=== PATIENT | male | born 1980 | race Caucasian/White ===

== ENCOUNTER 2020-11-24 23:56 | Emergency (ER) | payer MEDICAID, SELFPAY ==
--- NOTE | 2020-11-25 02:55 | ED_ITS ---
HPI - Weakness General Stated complaint: Weakness Time Seen by Provider: 11/25/20 02:54 Source: patient Mode of arrival: ambulatory Limitations: no limitations Related Data Allergies Allergy/AdvReac Type Severity Reaction Status Date / Time No Known Allergies Allergy Unverified 07/20/20 15:56 [No Known Allergies*] [facility] Past Medical History Attestation statement: The following information was validated with the patient. Medical History (Updated 11/25/20 @ 02:55 by Pao Pereyra DO) Diabetes HTN (hypertension) Renal failure Sleep apnea Social History Social History (Updated 11/25/20 @ 02:56 by Pao Pereyra DO) Smoking Status: Current every day smoker
== END 2020-11-25 03:10 | disposition left against medical advice (07) ==
LOC: HO.ED 11-25 03:00
PROVIDERS: Emergency Provider Emergency Medicine
DX: R53.1 Weakness (principal)

== ENCOUNTER 2020-11-26 10:39 | Emergency (ER) | payer MEDICAID, SELFPAY ==
[2020-11-26 11:03] VITALS: BP 130/87; PULSE 100; RESP 20; TEMP 36.6; O2SAT 99; BMI 28.8
--- NOTE | 2020-11-26 13:04 | ECG_ITS ---
Test Reason : BACK PAIN Blood Pressure : / mmHG Vent. Rate : 079 BPM Atrial Rate : 079 BPM P-R Int : 156 ms QRS Dur : 096 ms QT Int : 360 ms P-R-T Axes : 041 064 057 degrees QTc Int : 412 ms Normal sinus rhythm Normal ECG When compared with ECG of 01-OCT-2018 22:36, No significant change was found Referred By: Pilar Summers Electronically Signed By:Fabio Whitten
--- NOTE | 2020-11-26 13:04 | XR_ITS ---
EXAMINATION: XR CHEST CLINICAL INFORMATION: Weakness. COMPARISON: Chest radiographs done on 02/11/2018. TECHNIQUE: 2 views of the chest were obtained. FINDINGS: No significant abnormality is noted involving the heart, lungs, mediastinum, bony thorax or soft tissues. XR/XR chest 2V IMPRESSION: Unremarkable examination. No significant change since 02/11/2018.
--- NOTE | 2020-11-26 13:09 | ED_ITS ---
HPI - General Adult General Chief complaint: General Medical Stated complaint: dehhydration Time Seen by Provider: 11/26/20 12:43 Source: patient Mode of arrival: ambulatory Limitations: no limitations History of Present Illness HPI narrative: 40 yo male with past medical history of NIDDM, CKD, HTN, ORTEGA here with complaints of mid back pain, weakness, fatigue, decreased urinary outout over the last few days. No cough, fevers, chills, urinary symptoms like burning or frequency, abdominal pain, vomiting, diarrhea, shortness of breath, cough, chest pain. Onset (ago): day(s) Related Data Home Medications Medication Instructions Recorded Confirmed glipizide 5 mg PO DAILY 11/26/20 11/26/20 lisinopril 20 mg PO DAILY 11/26/20 11/26/20 Allergies Allergy/AdvReac Type Severity Reaction Status Date / Time No Known Allergies Allergy Verified 11/26/20 14:08 [No Known Allergies*] Review of Systems Review of Systems: Yes all other systems are reviewed and are negative Constitutional: Constitutional: Reports no additional constitutional complaints, Denies body ache(s), Denies chills, Denies fever(s), Denies headache(s), Reports malaise and Reports weakness Eyes: Eyes: Reports no additional eye complaints and Denies change in vision ENT: Reports system reviewed and no additional complaints, except as documented, Denies dizziness, Denies headache(s), Denies nasal congestion, Denies nasal discharge and Denies neck pain Cardiovascular: Cardiovascular: Reports no additional cardiovascular complaints, Denies chest pain, Denies leg edema and Denies dyspnea Respiratory: Respiratory: Reports no additional respiratory complaints, Denies cough and Denies dyspnea Gastrointestinal: Gastrointestinal: Reports no additional gastrointestinal complaints, Denies abdominal pain, Denies diarrhea, Denies nausea and Denies vomiting Genitourinary: Genitourinary: Reports oliguria, Denies testicular pain, Denies urinary frequency, Denies urinary hesitancy, Denies urinary incontinence and Denies urinary urgency Musculoskeletal: Musculoskeletal: Reports no additional musculoskeletal complaints, Reports back pain, Denies arthralgias, Denies joint swelling, Denies neck pain, Denies numbness and Denies tingling Integumentary/Breasts: Skin/Breast: Reports system reviewed and no additional complaints, except as docu and Denies rash Neurologic: Reports system reviewed and no additional complaints, except as documented, Denies Abnormal speech present, Denies dizziness, Denies headache(s), Denies numbness, Denies tingling and Reports weakness PMFSH Past Medical History Attestation statement: The following information was validated with the patient. Source: old records reviewed and nursing notes reviewed Medical History Diabetes HTN (hypertension) Renal failure Sleep apnea Social History Social History Alcohol intake: never Smoking Status: Current every day smoker Smoked in Last 30 Days: Yes Use of substances other than those prescribed or required for medical reasons: No Advance Directives: No Advance Directives Information Provided: No Physical Exam Vital Signs: Vital Signs: Last Vital Signs Temp 98.3 F 11/26/20 16:11 Pulse 82 11/26/20 16:11 Resp 18 11/26/20 16:11 BP 122/69 11/26/20 16:11 Pulse Ox 99 11/26/20 16:11 Body Mass Index 28.8 Const: General: cooperative, healthy appearing, comfortable and no acute distress Orientation/consciousness: patient oriented x3 Limitations: no limitations HENMT: Head: Yes normal to inspection Ears: hearing grossly normal bilaterally General nose exam: Normal external nose present Face and sinus: Yes normal facial exam Mouth: Normal oral and palatal mucosa present Throat: Yes posterior oropharynx normal Eyes: General: appearance normal, both eyes and all related structures Pupils: Equal, round and reactive pupils present Neck: Neck: Yes normal visual inspection Chest: Chest palpation & inspection: normal inspection of the chest Resp: Effort & Inspection: normal respiratory effort Auscultation: clear to auscultation bilaterally Cardio: Rate: regular rate Rhythm: regular rhythm Peripheral pulses: Peripheral pulses 2+ throughout GI: Inspection: Yes normal to inspection Palpation (GI): Soft to palpation and nontender Auscultation: normal bowel sounds Back/Spine/Pelvis: Other: Mid back pain bilateral Thoracic/Lumbar Spine: thoracic and lumbar spine normal to inspection Skin: General skin exam: no rashes or lesions noted Neuro: General: patient oriented x3, no focal motor deficits and normal sensation to monofilament Cranial nerves: Yes Equal, round and reactive pupils present Cognition (Neuro): normal cognition Speech: No Abnormal speech present Gait exam (Neuro): Normal gait present Motor exam (neuro): 5/5 motor strength present throughout Extrem: General: Yes normal to inspection Course Course Course Narrative: 40-year-old male here with weakness which is generalized, malaise, back pain and decreased urination over the last few days. He tells me he has a history of same and was noted to have a abnormal potassium level and a worsening renal function in the past. He is concerned for the same. Will check labs, EKG, UA. 1430-acute on chronic renal failure. UA pending. Troponin elevated but no c hest pain. Likely secondary to renal failure. EKG pending. Will rehydrate patient. EKG shows no ischemic changes. Repeat troponin unchanged, likely elevated from CKD. No chest pain. Patient feeling better after receiving NSB. Renal function may be secondary to mild dehydration or worsening renal function. Discussed with patient and recommended following Medical Decision Making MDM Narrative Medical decision making narrative: Lessl likely ACS with 2 flats troponin, EKG with no ischemic changes. Less likely renal colic with no unilateral pain, UA negative for blood. Less likely pyelo/uti with negative UA, no unilateral CVAT. Less likely electrolyte abnormality with unremarkable labs. Medical Records Medical records reviewed: Yes I reviewed the patient's medical records. Lab Data Lab results reviewed: Yes I reviewed the patient's lab results. Result diagrams: 11/26/20 13:41 11/26/20 13:41 Labs: Lab Results 11/26/20 11/26/20 11/26/20 Range/Units 13:41 13:41 13:41 WBC 15.4 H (4.8-10.8) X10*3/uL RBC 4.57 L (4.60-5.80) X10*6/uL Hgb 13.3 L (14.0-18.0) g/dl Hct 39.7 L (42-52) % MCV 86.9 (80-98) fL MCH 29.1 (27.0-33.0) pg MCHC 33.5 (31.0-36.0) g/dl RDW 12.2 (11.0-16.0) % Plt Count 267 (160-400) X10*3/uL MPV 11.3 (9.4-12.4) fL Immature Gran % (Auto) 0.5 H (0.0-0.4) % Neut % (Auto) 66.0 (45-73) % Lymph % (Auto) 25.6 (20-40) % [place] % (Auto) 7.1 (2-11) % Eos % (Auto) 0.6 (0-4) % Baso % (Auto) 0.2 (0-2) % Lymph # (Auto) 3.9 (1.2-4.9) X10*3/uL [place] # (Auto) 1.1 (0.1-1.2) X10*3/uL Eos # (Auto) 0.1 (0.0-0.4) X10*3/uL Baso # (Auto) 0.0 (0.0-0.2) X10*3/uL Abs Immat Gran (auto) 0.08 H (0.00-0.03) X10*3/uL Absolute Neuts (auto) 10.2 H (2.0-8.3) X10*3/uL Absolute Nucleated RBC 0.000 (0.0-0.012) X10*3/uL Nucleated RBC % (auto) 0.0 (0.0-0.2) /100WBC Hold Blue Top SEE NOTE Sodium 131 L (135-145) mmol/L Potassium 5.1 (3.3-5.1) mmol/l Chloride 98 (96-108) mmol/L Carbon Dioxide 25 (22-29) mmol/L Anion Gap 13 (12-20) BUN 31 H (9-16) mg/dL Creatinine 2.60 H (0.5-1.4) mg/dL Estim Creat Clear Calc 40.7 Estimated GFR 27 Random Glucose 307 H (60-115) mg/dL Calcium 8.7 (8.4-10.2) mg/dL Magnesium 2.3 (1.6-2.6) mg/dL Total Bilirubin 0.4 (0.0-1.0) mg/dL Direct Bilirubin 0.2 (0.0-0.5) mg/dL AST 30 (5-37) U/L ALT 26 (0-40) U/L Alkaline Phosphatase 104 (39-117) U/L Total Creatine Kinase 80 (38-174) U/L Troponin I High Sens (<3.5-35.0) ng/L Total Protein 6.9 (6.5-8.0) g/dL Albumin 3.8 (3.5-5.0) g/dL Urine Color Urine Appearance Urine pH (5.0-8.0) Ur Specific [place] (1.005-1.025) Urine Protein (NEG-TRACE) MG/DL Urine Glucose (UA) (NEG) MG/DL Urine Ketones (NEG) MG/DL Urine Blood (NEG) Urine Nitrite (NEG) Ur Leukocyte Esterase (NEG) Urine RBC (0) /HPF Urine WBC (0-4) /HPF Ur Squamous Epith Cells /LPF Urine Bacteria /LPF COVID-19 ([facility]) (Negative) COVID-19 Clin Com 11/26/20 11/26/20 11/26/20 Range/Units 13:41 13:41 14:51 WBC (4.8-10.8) X10*3/uL RBC (4.60-5.80) X10*6/uL Hgb (14.0-18.0) g/dl Hct (42-52) % MCV (80-98) fL MCH (27.0-33.0) pg MCHC (31.0-36.0) g/dl RDW (11.0-16.0) % Plt Count (160-400) X10*3/uL MPV (9.4-12.4) fL Immature Gran % (Auto) (0.0-0.4) % Neut % (Auto) (45-73) % Lymph % (Auto) (20-40) % [place] % (Auto) (2-11) % Eos % (Auto) (0-4) % Baso % (Auto) (0-2) % Lymph # (Auto) (1.2-4.9) X10*3/uL [place] # (Auto) (0.1-1.2) X10*3/uL Eos # (Auto) (0.0-0.4) X10*3/uL Baso # (Auto) (0.0-0.2) X10*3/uL Abs Immat Gran (auto) (0.00-0.03) X10*3/uL Absolute Neuts (auto) (2.0-8.3) X10*3/uL Absolute Nucleated RBC (0.0-0.012) X10*3/uL Nucleated RBC % (auto) (0.0-0.2) /100WBC Hold Blue Top Sodium (135-145) mmol/L Potassium (3.3-5.1) mmol/l Chloride (96-108) mmol/L Carbon Dioxide (22-29) mmol/L Anion Gap (12-20) BUN (9-16) mg/dL Creatinine (0.5-1.4) mg/dL Estim Creat Clear Calc Estimated GFR Random Glucose (60-115) mg/dL Calcium (8.4-10.2) mg/dL Magnesium (1.6-2.6) mg/dL Total Bilirubin (0.0-1.0) mg/dL Direct Bilirubin (0.0-0.5) mg/dL AST (5-37) U/L ALT (0-40) U/L Alkaline Phosphatase (39-117) U/L Total Creatine Kinase (38-174) U/L Troponin I High Sens 125.2 H (<3.5-35.0) ng/L Total Protein (6.5-8.0) g/dL Albumin (3.5-5.0) g/dL Urine Color YELLOW Urine Appearance CLEAR Urine pH 6.5 (5.0-8.0) Ur Specific [place] 1.015 (1.005-1.025) Urine Protein 2+ H (NEG-TRACE) MG/DL Urine Glucose (UA) 500 H (NEG) MG/DL Urine Ketones NEG (NEG) MG/DL Urine Blood TRACE (NEG) Urine Nitrite NEG (NEG) Ur Leukocyte Esterase NEG (NEG) Urine RBC 0-2 (0) /HPF Urine WBC 0 (0-4) /HPF Ur Squamous Epith Cells TRACE /LPF Urine Bacteria NONE /LPF COVID-19 ([facility]) Negative (Negative) COVID-19 Clin Com See Note 11/26/20 11/26/20 Range/Units 15:06 16:31 WBC (4.8-10.8) X10*3/uL RBC (4.60-5.80) X10*6/uL Hgb (14.0-18.0) g/dl Hct (42-52) % MCV (80-98) fL MCH (27.0-33.0) pg MCHC (31.0-36.0) g/dl RDW (11.0-16.0) % Plt Count (160-400) X10*3/uL MPV (9.4-12.4) fL Immature Gran % (Auto) (0.0-0.4) % Neut % (Auto) (45-73) % Lymph % (Auto) (20-40) % [place] % (Auto) (2-11) % Eos % (Auto) (0-4) % Baso % (Auto) (0-2) % Lymph # (Auto) (1.2-4.9) X10*3/uL [place] # (Auto) (0.1-1.2) X10*3/uL Eos # (Auto) (0.0-0.4) X10*3/uL Baso # (Auto) (0.0-0.2) X10*3/uL Abs Immat Gran (auto) (0.00-0.03) X10*3/uL Absolute Neuts (auto) (2.0-8.3) X10*3/uL Absolute Nucleated RBC (0.0-0.012) X10*3/uL Nucleated RBC % (auto) (0.0-0.2) /100WBC Hold Blue Top Sodium (135-145) mmol/L Potassium (3.3-5.1) mmol/l Chloride (96-108) mmol/L Carbon Dioxide (22-29) mmol/L Anion Gap (12-20) BUN (9-16) mg/dL Creatinine (0.5-1.4) mg/dL Estim Creat Clear Calc Estimated GFR Random Glucose (60-115) mg/dL Calcium (8.4-10.2) mg/dL Magnesium (1.6-2.6) mg/dL Total Bilirubin (0.0-1.0) mg/dL Direct Bilirubin (0.0-0.5) mg/dL AST (5-37) U/L ALT (0-40) U/L Alkaline Phosphatase (39-117) U/L Total Creatine Kinase (38-174) U/L Troponin I High Sens 114.9 H (<3.5-35.0) ng/L Total Protein (6.5-8.0) g/dL Albumin (3.5-5.0) g/dL Urine Color YELLOW Urine Appearance HAZY Urine pH 6.0 (5.0-8.0) Ur Specific [place] 1.015 (1.005-1.025) Urine Protein 2+ H (NEG-TRACE) MG/DL Urine Glucose (UA) 500 H (NEG) MG/DL Urine Ketones NEG (NEG) MG/DL Urine Blood TRACE (NEG) Urine Nitrite NEG (NEG) Ur Leukocyte Esterase NEG (NEG) Urine RBC 1-4 (0) /HPF Urine WBC 0-2 (0-4) /HPF Ur Squamous Epith Cells TRACE /LPF Urine Bacteria NONE /LPF COVID-19 ([facility]) (Negative) COVID-19 Clin Com Imaging Data Chest x-ray: Attestation: I personally reviewed and interpreted this imaging study as follows: Radiologist's impression: [address] [id number] ReportSigned Patient: Deandre Luong MMR#: [id number]: [id number]:[id number]/Sex: 40 / MADM Date: 11/26/20Loc: HO.EDAttending Dr: Ordering Physician: DANIELA RODGERS NP Date of Service: 11/26/20 Procedure(s): XR chest 2V Accession Number(s): [id number] cc: DANIELA RODGERS NP~ EXAMINATION: XR CHEST CLINICAL INFORMATION: Weakness. COMPARISON: Chest radiographs done on 02/11/2018. TECHNIQUE: 2 views of the chest were obtained. FINDINGS: No significant abnormality is noted involving the heart, lungs, mediastinum, bony thorax or soft tissues. XR/XR chest 2V IMPRESSION: Unremarkable examination. No significant change since 02/11/2018. ECG Data Attestation: I personally reviewed and interpreted this ECG as follows: Interpretation: Normal sinus rhythm with a rate of 79, normal MT, normal QRS, normal QT Discharge Plan Discharge Clinical Impression: Chronic kidney failure Patient Disposition: Home, Self-Care Instructions: Chronic Kidney Disease (ED) Additional Instructions: yOUR KIDNEY FAILURE WAS SLIGHTLY WORSENED TODAY. tHIS COULD BE FROM DEHYDRATION OR FROM WORSENING KIDNEY FUNCTION FOLLOW-UP WITH YOUR INSURANCE FOLLOW UP REPRESENTATIVE Prescriptions: No Action lisinopril 20 mg Tablet 20 mg PO DAILY RF: 0 glipizide 5 mg Tablet 5 mg PO DAILY RF: 0 Referrals: Cristina Stover MD [Primary Care Provider] - 2 days Interventions: ED Discharge Assessment Last Done: 11/26/20 17:46 Discharge Date/Time: 11/26/20 17:46
[2020-11-26 13:48] LABS: MANUAL DIFF FLAG NO
[2020-11-26 13:51] LABS: Basophils Percent Auto 0.2 % (0-2); Eosinophils Absolute Auto 0.1 X10*3/uL (0.0-0.4); Eosinophils Percent Auto 0.6 % (0-4); Hematocrit 39.7 % (42-52); Hemoglobin 13.3 g/dl (14.0-18.0); Imm Gran Abs Auto 0.08 X10*3/uL (0.00-0.03); Imm Gran Pct Auto 0.5 % (0.0-0.4); Lymphocytes Absolute Auto 3.9 X10*3/uL (1.2-4.9); Lymphocytes Percent Auto 25.6 % (20-40); Mean Corpuscular HGB Conc 33.5 g/dl (31.0-36.0); Mean Corpuscular Hemoglobin 29.1 pg (27.0-33.0); Mean Corpuscular Volume 86.9 fL (80-98); Mean Platelet Volume 11.3 fL (9.4-12.4); Monocytes Absolute Auto 1.1 X10*3/uL (0.1-1.2); Monocytes Percent Auto 7.1 % (2-11); Neutrophils Absolute Auto 10.2 X10*3/uL (2.0-8.3); Platelet Count 267 X10*3/uL (160-400); Red Blood Count 4.57 X10*6/uL (4.60-5.80); Red Cell Distribution Width 12.2 % (11.0-16.0); White Blood Count 15.4 X10*3/uL (4.8-10.8)
[2020-11-26 14:05] VITALS: BP 133/47; PULSE 87; TEMP 36.9; O2SAT 100
[2020-11-26 14:05] LABS: COVID-19 Test Negative (Negative)
[2020-11-26 14:11] LABS: Alanine Aminotransferase 26 U/L (0-40); Albumin Level 3.8 g/dL (3.5-5.0); Alkaline Phosphatase 104 U/L (39-117); Anion Gap 13 (12-20); Aspartate Amino Transferase 30 U/L (5-37); Bilirubin Direct 0.2 mg/dL (0.0-0.5); Bilirubin Total 0.4 mg/dL (0.0-1.0); Blood Urea Nitrogen 31 mg/dL (9-16); Calcium 8.7 mg/dL (8.4-10.2); Carbon Dioxide 25 mmol/L (22-29); Chloride 98 mmol/L (96-108); Creatinine Clr Calc Pharmacy 40.7; Estimated Glomerular Filt Rate 27; Glucose Random 307 mg/dL (60-115); Magnesium 2.3 mg/dL (1.6-2.6); Potassium 5.1 mmol/l (3.3-5.1); Sodium 131 mmol/L (135-145); Total Protein 6.9 g/dL (6.5-8.0)
[2020-11-26 14:22] LABS: Troponin-I High Sensitivity 125.2 ng/L (<3.5-35.0)
[2020-11-26] MEDS: 0.9 % Sodium Chloride 1,000 ML 999 ML IV (14:57)
[2020-11-26 15:15] LABS: Glucose Urine UA 500 MG/DL (NEG); Leukocyte Esterase Urine NEG (NEG); Nitrite Urine NEG (NEG); PH 6.5 (5.0-8.0); Specific Gravity - Urine 1.015 (1.005-1.025); Urine Blood TRACE (NEG); Urine Ketones NEG (NEG); Urine Protein 2+ MG/DL (NEG-TRACE)
[2020-11-26 15:17] LABS: Appearance Urine CLEAR; Color Urine YELLOW
[2020-11-26 15:22] LABS: Glucose Urine UA 500 MG/DL (NEG); Leukocyte Esterase Urine NEG (NEG); Nitrite Urine NEG (NEG); Specific Gravity - Urine 1.015 (1.005-1.025); Urine Blood TRACE (NEG); Urine Ketones NEG (NEG); Urine Protein 2+ MG/DL (NEG-TRACE)
[2020-11-26 15:26] LABS: RBC Urine 0-2 /HPF (0); Squamous Epithelial Cell Urine TRACE /LPF; WBC Urine 0 /HPF (0-4)
[2020-11-26 15:30] LABS: Squamous Epithelial Cell Urine TRACE /LPF; WBC Urine 0-2 /HPF (0-4)
[2020-11-26 16:11] VITALS: BP 122/69; PULSE 82; RESP 18; TEMP 36.8; O2SAT 99
[2020-11-26 16:17] LABS: Appearance Urine HAZY; Color Urine YELLOW
[2020-11-26 17:16] LABS: Troponin-I High Sensitivity 114.9 ng/L (<3.5-35.0)
== END 2020-11-26 17:46 | disposition home or self-care (01) ==
PROVIDERS: Nurse Practitioner Family; Emergency Provider Internal Medicine; PCP Family Medicine
DX: E86.0 Dehydration (principal); I12.9 Hypertensive chronic kidney disease with stage 1 through stage 4 chronic kidney disease, or unspecified chronic kidney disease; E11.22 Type 2 diabetes mellitus with diabetic chronic kidney disease; N18.9 Chronic kidney disease, unspecified; G47.33 Obstructive sleep apnea (adult) (pediatric); F17.200 Nicotine dependence, unspecified, uncomplicated; Z79.899 Other long term (current) drug therapy; Z71.6 Tobacco abuse counseling; Z20.822 Contact with and (suspected) exposure to COVID-19
CPT/HCPCS: 36415; 71046; 80048; 80076; 81001; 82550; 83735; 84484; 85025; 87635; 93005; 96360; 99284

== ENCOUNTER 2021-02-28 23:49 | Emergency (ER) | payer MEDICAID, SELFPAY ==
[2021-02-28 23:58] VITALS: BP 128/65; PULSE 89; RESP 18; TEMP 36.6; O2SAT 100; BMI 36.9
[2021-03-01] VITALS: BP 114/59; PULSE 81; RESP 18; TEMP 36.6; O2SAT 100
[2021-03-01 00:05] LABS: Glucose, Whole Blood 326 mg/dL (60-115)
--- NOTE | 2021-03-01 01:01 | ECG_ITS ---
Test Reason : WEAKNESS Blood Pressure : / mmHG Vent. Rate : 078 BPM Atrial Rate : 078 BPM P-R Int : 132 ms QRS Dur : 098 ms QT Int : 354 ms P-R-T Axes : -32 144 144 degrees QTc Int : 403 ms Suspect limb lead reversal, interpretation assumes no reversal Unusual P axis, possible ectopic atrial rhythm Left posterior fascicular block Nonspecific ST and T wave abnormality Abnormal ECG When compared with ECG of 26-NOV-2020 14:27, Please repeat EKG with correct arm lead Referred By: Gilda Manley Electronically Signed By:YUNIER SIMON MD
--- NOTE | 2021-03-01 01:02 | ED.GENADULT ---
HPI - General Adult General Chief complaint: General Medical Stated complaint: Weakness Time Seen by Provider: 03/01/21 00:55 Source: patient Mode of arrival: ambulatory Limitations: no limitations History of Present Illness HPI narrative: Patient comes to emergency room complaining of a panic attack, feeling chest pressure and near syncopal episode. Patient states that at this time, he feels completely normal. Patient states that he is known to have panic attacks. Patient states that he was laying in bed, started feeling anxious, started feeling short of breath, chest pressure, thought he was going to pass out, tried giving himself an albuterol treatment. A family member drove him to the emergency room. On arrival, patient started feeling better, at this time, patient is asymptomatic Related Data Home Medications Medication Instructions Recorded Confirmed glipizide 5 mg PO DAILY 11/26/20 11/26/20 lisinopril 20 mg PO DAILY 11/26/20 11/26/20 Allergies Allergy/AdvReac Type Severity Reaction Status Date / Time No Known Allergies Allergy Verified 11/26/20 14:08 [No Known Allergies*] Review of Systems Review of Systems: Constitutional : No Weight loss, No Fever, No Chills, No Night Sweats, No Fatigue, No Malaise ENT/Mouth : No Hearing loss, No Ear Pain, No Nasal Congestion, No Sinus Pain, No Hoarseness, No sore throat, No Rhinorrhea, No Swallowing Difficulty Eyes: No Eye Pain, No Swelling, No Redness, No Foreign Body, No Discharge, No Vision Changes Cardiovascular : Resolved chest pressure and resolved dyspnea , No Orthopnea, No Edema, resolved Palpitations Respiratory : No Cough, No Sputum, No Wheezing, No Smoke Exposure, No Dyspnea Gastrointestinal : No Nausea, No Vomiting, No Diarrhea, No Constipation, No abdominal Pain, No Hematochezia, No Melena Genitourinary : no irregular bleeding, No Dysuria, No Urinary Frequency, No Hematuria, No Urinary Incontinence, No Urgency, No Flank Pain, No Urinary Flow Changes, No Hesitancy Musculoskeletal : No joint pain, No Myalgias, No Joint Swelling Skin : No Skin Lesions, No rash Neuro : Complaining of worsening pins and needle sensation on both feet for several months, No Paresthesias, No Loss of Consciousness, No Dizziness, No Headache Psych : No Anxiety/Panic, No Depression, No SI/HI/AH/VH, No Social Issues, Heme/Lymph: No Bruising, No Bleeding,No Lymphadenopathy Endocrine : No Polyuria, No Polydipsia, No Temperature Intolerance [facility] Past Medical History Medical History Diabetes HTN (hypertension) Renal failure Sleep apnea Social History Social History Alcohol intake: never Smoking Status: Current every day smoker Advance Directives: No Physical Exam Vital Signs: Vital Signs: Last Vital Signs Temp 98 F 03/01/21 01:33 Pulse 76 03/01/21 01:33 Resp 18 03/01/21 01:33 BP 113/61 03/01/21 01:33 Pulse Ox 100 03/01/21 01:33 Body Mass Index 36.9 Appearance: Alert. Oriented X3. No acute distress. Eyes: Pupils equal, round and reactive to light. ENT: Pharynx normal. Neck: Normal inspection. Neck supple. No lymph nodes noted. No crepitus CVS: Normal heart rate and rhythm. Pulses normal. Normal S1 and S2 Respiratory: No respiratory distress. Breath sounds normal. No Wheezing. No rales Abdomen: Soft and nontender. No rigidity. No distention. good BS x4 Skin: Skin warm and dry. Normal skin color. Normal skin turgor. Extremities: No lower extremity edema. No lower extremity edema. No Lacerations. No Rash Neuro: Oriented X 3. No motor deficit. No sensory deficit. Moving all extermities. No slurred speech. Course Course Course Narrative: I discussed with the patient that the chronic pins and needle sensation in his feet is likely secondary to diabetic neuropathy. Patient needs to have better control of his blood sugar. Patient's blood sugar is now 218, asymptomatic. Patient had a troponin elevated at 146.3. Patient's baseline troponin is approximately 120. Patient has no chest pain. I discussed with the patient that he should stay for repeat troponin at 03:00 hours, however patient states that his only option for a ride is his daughter who needs to go to work now, patient will be leaving against medical advice. Medical Decision Making Lab Data Result diagrams: 03/01/21 01:12 03/01/21 01:12 Labs: Lab Results 02/28/21 03/01/21 03/01/21 Range/Units 23:53 01:12 01:12 WBC 11.4 H (4.8-10.8) X10*3/uL RBC 4.62 (4.60-5.80) X10*6/uL Hgb 13.5 L (14.0-18.0) g/dl Hct 41.3 L (42-52) % MCV 89.4 (80-98) fL MCH 29.2 (27.0-33.0) pg MCHC 32.7 (31.0-36.0) g/dl RDW 11.9 (11.0-16.0) % Plt Count 260 (160-400) X10*3/uL MPV 10.9 (9.4-12.4) fL Immature Gran % (Auto) 0.4 (0.0-0.4) % Neut % (Auto) 60.4 (45-73) % Lymph % (Auto) 31.4 (20-40) % [place] % (Auto) 5.9 (2-11) % Eos % (Auto) 1.6 (0-4) % Baso % (Auto) 0.3 (0-2) % Lymph # (Auto) 3.6 (1.2-4.9) X10*3/uL [place] # (Auto) 0.7 (0.1-1.2) X10*3/uL Eos # (Auto) 0.2 (0.0-0.4) X10*3/uL Baso # (Auto) 0.0 (0.0-0.2) X10*3/uL Abs Immat Gran (auto) 0.04 H (0.00-0.03) X10*3/uL Absolute Neuts (auto) 6.9 (2.0-8.3) X10*3/uL Absolute Nucleated RBC 0.000 (0.0-0.012) X10*3/uL Nucleated RBC % (auto) 0.0 (0.0-0.2) /100WBC Sodium 133 L (135-145) mmol/L Potassium 4.8 (3.3-5.1) mmol/L Chloride 95 L (96-108) mmol/L Carbon Dioxide 32 H (22-29) mmol/L Anion Gap 11 L (12-20) BUN 33 H (9-16) mg/dL Creatinine 2.28 H (0.5-1.4) mg/dL Estim Creat Clear Calc 52.4 Estimated GFR 32 POC Glucose 326 H (60-115) mg/dL Random Glucose 318 H (60-115) mg/dL Calcium 9.6 D (8.4-10.2) mg/dL Troponin I High Sens (<3.5-35.0) ng/L Urine Color Urine Appearance Urine pH (5.0-8.0) Ur Specific [place] (1.005-1.025) Urine Protein (NEG-TRACE) MG/DL Urine Glucose (UA) (NEG) MG/DL Urine Ketones (NEG) MG/DL Urine Blood (NEG) Urine Nitrite (NEG) Ur Leukocyte Esterase (NEG) Urine RBC (0) /HPF Urine WBC (0-4) /HPF Ur Squamous Epith Cells /LPF Urine Bacteria /LPF Urine Mucus /LPF 03/01/21 03/01/21 03/01/21 Range/Units 01:12 01:36 02:40 WBC (4.8-10.8) X10*3/uL RBC (4.60-5.80) X10*6/uL Hgb (14.0-18.0) g/dl Hct (42-52) % MCV (80-98) fL MCH (27.0-33.0) pg MCHC (31.0-36.0) g/dl RDW (11.0-16.0) % Plt Count (160-400) X10*3/uL MPV (9.4-12.4) fL Immature Gran % (Auto) (0.0-0.4) % Neut % (Auto) (45-73) % Lymph % (Auto) (20-40) % [place] % (Auto) (2-11) % Eos % (Auto) (0-4) % Baso % (Auto) (0-2) % Lymph # (Auto) (1.2-4.9) X10*3/uL [place] # (Auto) (0.1-1.2) X10*3/uL Eos # (Auto) (0.0-0.4) X10*3/uL Baso # (Auto) (0.0-0.2) X10*3/uL Abs Immat Gran (auto) (0.00-0.03) X10*3/uL Absolute Neuts (auto) (2.0-8.3) X10*3/uL Absolute Nucleated RBC (0.0-0.012) X10*3/uL Nucleated RBC % (auto) (0.0-0.2) /100WBC Sodium (135-145) mmol/L Potassium (3.3-5.1) mmol/L Chloride (96-108) mmol/L Carbon Dioxide (22-29) mmol/L Anion Gap (12-20) BUN (9-16) mg/dL Creatinine (0.5-1.4) mg/dL Estim Creat Clear Calc Estimated GFR POC Glucose 218 H (60-115) mg/dL Random Glucose (60-115) mg/dL Calcium (8.4-10.2) mg/dL Troponin I High Sens 146.3 H (<3.5-35.0) ng/L Urine Color STRAW Urine Appearance CLEAR Urine pH 7.0 (5.0-8.0) Ur Specific [place] 1.015 (1.005-1.025) Urine Protein 2+ H (NEG-TRACE) MG/DL Urine Glucose (UA) 500 H (NEG) MG/DL Urine Ketones NEG (NEG) MG/DL Urine Blood 1+ H (NEG) Urine Nitrite NEG (NEG) Ur Leukocyte Esterase NEG (NEG) Urine RBC 0-2 (0) /HPF Urine WBC 0 (0-4) /HPF Ur Squamous Epith Cells NONE /LPF Urine Bacteria NONE /LPF Urine Mucus TRACE /LPF Scores Heart Score History: -0- slightly suspicious ECG: -0- normal Age: -0- < or = 45 Risk factory: -1- 1 or 2 risk factors Troponin: -1- >1 - <3x normal limit Score: 2 Risk: 1.7% Discharge Plan Discharge Clinical Impression: Panic attack Hyperglycemia due to type 2 diabetes mellitus Qualifiers: Diabetes mellitus assisted insulin use: unspecified terminal makeup operator insulin use status Qualified Code(s): E11.65 - Type 2 diabetes mellitus with hyperglycemia Patient Disposition: Left Against Medical Advice Instructions: Diabetic Hyperglycemia (ED), Anxiety (ED) Additional Instructions: He left against medical advice, if you have any chest pain, any recurrent symptoms please return to the emergency room. Please follow-up with your primary care physician tomorrow. If you have any worsening or new symptoms, please return to the emergency room or call 911 Prescriptions: No Action lisinopril 20 mg Tablet 20 mg PO DAILY RF: 0 glipizide 5 mg Tablet 5 mg PO DAILY RF: 0
[2021-03-01] MEDS: 0.9 % Sodium Chloride 1,000 ML 999 ML IVCONT (01:13)
[2021-03-01 01:17] LABS: MANUAL DIFF FLAG NO
[2021-03-01 01:18] LABS: Basophils Percent Auto 0.3 % (0-2); Eosinophils Absolute Auto 0.2 X10*3/uL (0.0-0.4); Eosinophils Percent Auto 1.6 % (0-4); Hematocrit 41.3 % (42-52); Hemoglobin 13.5 g/dl (14.0-18.0); Imm Gran Abs Auto 0.04 X10*3/uL (0.00-0.03); Imm Gran Pct Auto 0.4 % (0.0-0.4); Lymphocytes Absolute Auto 3.6 X10*3/uL (1.2-4.9); Lymphocytes Percent Auto 31.4 % (20-40); Mean Corpuscular HGB Conc 32.7 g/dl (31.0-36.0); Mean Corpuscular Hemoglobin 29.2 pg (27.0-33.0); Mean Corpuscular Volume 89.4 fL (80-98); Mean Platelet Volume 10.9 fL (9.4-12.4); Monocytes Absolute Auto 0.7 X10*3/uL (0.1-1.2); Monocytes Percent Auto 5.9 % (2-11); Neutrophils Absolute Auto 6.9 X10*3/uL (2.0-8.3); Neutrophils Percent Auto 60.4 % (45-73); Platelet Count 260 X10*3/uL (160-400); Red Blood Count 4.62 X10*6/uL (4.60-5.80); Red Cell Distribution Width 11.9 % (11.0-16.0); White Blood Count 11.4 X10*3/uL (4.8-10.8)
[2021-03-01] MEDS: Aspirin Enteric Coated 325 MG TABLET.DR PO (01:29)
[2021-03-01] MEDS: Insulin Regular, Human 100 UNIT/ML 3 ML VIAL 10 UNIT IVPUSH (01:30)
[2021-03-01 01:33] VITALS: BP 113/61; PULSE 76; RESP 18; TEMP 36.6; O2SAT 100
[2021-03-01 01:48] LABS: Anion Gap 11 (12-20); Blood Urea Nitrogen 33 mg/dL (9-16); Calcium 9.6 mg/dL (8.4-10.2); Carbon Dioxide 32 mmol/L (22-29); Chloride 95 mmol/L (96-108); Creatinine Clr Calc Pharmacy 52.4; Estimated Glomerular Filt Rate 32; Glucose Random 318 mg/dL (60-115); Potassium 4.8 mmol/L (3.3-5.1); Sodium 133 mmol/L (135-145)
[2021-03-01 02:00] LABS: Troponin-I High Sensitivity 146.3 ng/L (<3.5-35.0)
[2021-03-01 02:09] LABS: Glucose Urine UA 500 MG/DL (NEG); Leukocyte Esterase Urine NEG (NEG); Nitrite Urine NEG (NEG); Specific Gravity - Urine 1.015 (1.005-1.025); Urine Blood 1+ (NEG); Urine Ketones NEG (NEG); Urine Protein 2+ MG/DL (NEG-TRACE)
[2021-03-01 02:15] LABS: Appearance Urine CLEAR; Color Urine STRAW
[2021-03-01 02:22] LABS: Mucus Urine TRACE /LPF; RBC Urine 0-2 /HPF (0); WBC Urine 0 /HPF (0-4)
[2021-03-01] MEDS: LORazepam 1 MG TABLET 2 MG PO (02:38)
[2021-03-01 02:43] LABS: Glucose, Whole Blood 218 mg/dL (60-115)
== END 2021-03-01 03:17 | disposition left against medical advice (07) ==
PROVIDERS: Emergency Provider Emergency Medicine
DX: E11.65 Type 2 diabetes mellitus with hyperglycemia (principal); F41.0 Panic disorder [episodic paroxysmal anxiety]; R53.1 Weakness; I10 Essential (primary) hypertension; F41.9 Anxiety disorder, unspecified; F17.200 Nicotine dependence, unspecified, uncomplicated
CPT/HCPCS: 36415; 80048; 81001; 82947; 84484; 85025; 93005; 96361; 96374; 99284

== ENCOUNTER 2023-04-18 17:33 | Inpatient (IN) | payer MEDICAID, SELFPAY ==
[2023-04-18] VITALS (9 sets, daily range): BP systolic 95–188; BP diastolic 43–103; PULSE 76–102; RESP 14–20; TEMP 36.4–37.8; O2SAT 97–100; BMI 30.1
--- NOTE | ~2023-04-18 | XR_ITS ---
EXAMINATION: XR FOOT, RIGHT CLINICAL INFORMATION: Rule out second toe ostial COMPARISON: None available. TECHNIQUE: AP, lateral, and oblique views of the right foot. FINDINGS: Erosion and destruction of second distal phalanx suggestive of osteomyelitis. Marked soft tissue swelling about the second digit. Speckled foci of gas overlying the second digit, and unclear if the certainty this is internal or external to the soft tissues. Soft tissue swelling along the dorsum of the foot. No acute fracture or dislocation. XR/XR foot RT 2V IMPRESSION: 1. Erosion and destruction of second distal phalanx suggestive of osteomyelitis. 2. Marked soft tissue swelling about the second digit and along the dorsum of the foot. Speckled foci of gas overlying the second digit, and unclear if the certainty this reflects intrinsic soft tissue gas such as in the setting of gas-forming infection or is external the soft tissues. Recommend correlation with physical exam.
--- NOTE | ~2023-04-18 | IR_ITS ---
PROCEDURE: IR INSERTION OF TUNNEL CATHETER CLINICAL INFORMATION: Osteomyelitis. Needs long-term antibiotics. COMPARISON: None available. TECHNIQUE: Following explaining ultrasound and fluoroscopy-guided placement of right PICC catheter, a written consent was obtained. Patient was placed supine on angiography table and preliminary imaging was obtained through the right neck. An optimal site was selected along the right neck and marked. Right jugular venous images were obtained for documentation. The marked site was cleaned and draped in usual sterile manner with 2% chlorhexidine solution. 1% lidocaine was injected at puncture site. A single wall needle was advanced under ultrasound guidance and right jugular vein was punctured. After obtaining venous return, a thin guidewire was advanced and placed in the SVC and needle withdrawn. Over the thin wire a 5 Georgian dilator was placed and the entire unit was anchored to the drape. Approximately 1 gauze length away from the right neck incision along the anterior chest wall 1% lidocaine was administered. A small skin incision performed. A tunneler attached to a Dietrich catheter was then bluntly introduced through the skin needle and subcutaneously tunneled and pulled through the right anterior neck incision. The catheter was then sized. At the neck the 5 Georgian sheath dilator was removed and a longer 0.035 J-wire was introduced and placed in the IVC. The 5 Georgian dilator was removed and 8 Georgian dilator with sheath was introduced over the guidewire. The dilator was removed and over the dilator a precut 5 Georgian Dietrich catheter was advanced and placed in SVC. Several images were obtained. The catheter was flushed with heparinized saline. 3-0 nonabsorbable sutures were placed in the right neck and right anterior chest wall. Sterile dressing applied postprocedure. Patient tolerated procedure extremely well. All elements of maximal sterile barrier technique followed including use of cap, mask, sterile gown, sterile gloves, a sterile full body drape and hand hygiene. Also followed skin preparation with 2% chlorhexidine for cutaneous antisepsis, and sterile ultrasound preparation with sterile gel and probe cover when applicable. FINDINGS: On preliminary ultrasound imaging, the right jugular vein is widely patent. An approximately 25 cm long single lumen Dietrich catheter was placed with its tip in mid SVC. The catheter is ready for use. IR/IR cvc insert central tunnel IMPRESSION: Successful placement of a right internal jugular vein Dietrich catheter with ultrasound guidance. The catheter is ready for use. The tip of the catheter lies in mid SVC and is ready for use. Fluoroscopy time: 1.3 minutes. Sedation time: 28 minutes. Dose area product: 340 cGy/cm.
--- NOTE | ~2023-04-18 | US_ITS ---
EXAMINATION: Noninvasive assessment of the bilateral lower extremities with ARTERIAL DUPLEX and ANKLE BRACHIAL INDICES (ABIs). CLINICAL INFORMATION: Peripheral vascular disease with history of nonhealing ulceration TECHNIQUE: Duplex Doppler techniques with waveform analysis and measurement of velocities in the bilateral common femoral, profunda femoris, superficial femoral, popliteal and tibial arteries were performed. Additionally, ankle pulse volume recordings, ankle pressure measurements and ankle brachial indices were obtained of the lower extremity arterial system bilaterally. The study was performed only at rest. COMPARISON: None FINDINGS: DIRECT DUPLEX DOPPLER FINDINGS: RIGHT LEG: Common femoral artery: 178 cm/s, phasicity: Triphasic Profunda femoris artery: 67.6 cm/s, phasicity: Biphasic Superficial femoral artery (proximal): 152 cm/s, phasicity: Triphasic Superficial femoral artery (mid): 177 cm/s, phasicity: Monophasic Superficial femoral artery (distal): 157 cm/s, phasicity: Monophasic Popliteal artery: 145 cm/s, phasicity: Monophasic Posterior tibial artery: 103 cm/s, phasicity: Monophasic Peroneal artery: 64.4 cm/s, phasicity: Monophasic LEFT LEG: Common femoral artery: 139 cm/s, phasicity: Triphasic Profunda femoris artery: 71.1 cm/s, phasicity: Triphasic Superficial femoral artery (proximal): 122 cm/s, phasicity: Triphasic Superficial femoral artery (mid): 139 cm/s, phasicity: Triphasic Superficial femoral artery (distal): 101 cm/s, phasicity: Triphasic Popliteal artery: 76.8 cm/s, phasicity: Triphasic Posterior tibial artery: 79.2 cm/s, phasicity: Triphasic Peroneal artery: 57.0 cm/s, phasicity: Triphasic ANKLE-BRACHIAL INDEX: Right: 1.18? Left: 1.12 ANKLE PRESSURES: Right: PT 152, DP not evaluated due to overlying bandage Left: PT?145, DP?130 ANKLE PVR WAVEFORMS: Right: Abnormal Left: Abnormal US/US arterial duplex LE BI IMPRESSION: Right leg: Normal ankle brachial index. Patent flow is seen within the evaluated vessels of the right lower extremity without significant stenosis. Abnormal waveforms are seen which could be due to distal microvascular disease Left leg: Normal ankle brachial index. Patent arterial flow with normal waveforms throughout the left lower extremity JUMA Reference: - >1.4 = calcified vessels - 0.9 - 1.4 = normal - no significant arterial disease - 0.7 - 0.89 = mild peripheral arterial disease - 0.51 - 0.69 = moderate peripheral arterial disease - ? 0.50 = severe peripheral arterial disease - < .30 = critical arterial disease
--- NOTE | ~2023-04-18 | XR_ITS ---
EXAMINATION: XR FOOT, LEFT CLINICAL INFORMATION: Rule out osteomyelitis first digit. COMPARISON: No similar priors. TECHNIQUE: AP, lateral, and oblique views of the left foot. FINDINGS: Laceration with associated soft tissue thickening around the distal first toe. The tuft of the first distal phalanx demonstrates subtle erosions and cortical discontinuity, best seen on the lateral view, worrisome for osteomyelitis. No acute fractures or malalignment. No unexpected radiopaque foreign bodies. XR/XR foot LT 2V IMPRESSION: Findings worrisome for osteomyelitis of the first distal phalanx nearby a laceration and soft tissue thickening.
--- NOTE | 2023-04-18 17:42 | ED.GENADULT ---
HPI - General Adult General Chief complaint: Extremity Problem Stated complaint: R foot swelling Time Seen by Provider: 04/18/23 18:51 Source: patient Mode of arrival: ambulatory History of Present Illness HPI narrative: 42-year-old male, diabetic and hypertensive, states he has been out of medications and that his foot just became red with the discoloration of the 2nd toe on the right foot for 2 days. He denies fevers or chills. Related Data Home Medications Medication Instructions Recorded Confirmed lisinopril 20 mg tablet 20 mg PO DAILY 11/26/20 04/18/23 atorvastatin 40 mg tablet 40 mg PO BEDTIME 04/18/23 04/18/23 glipizide 10 mg tablet, extended 10 mg PO DAILY 04/18/23 04/18/23 release 24 hr melatonin 5 mg tablet 5 mg PO BEDTIME PRN insomnia 04/18/23 04/18/23 multivitamin 1 tab PO DAILY 04/18/23 04/18/23 omeprazole 20 mg capsule,delayed 20 mg PO DAILY@0630 04/18/23 04/18/23 release Allergies Allergy/AdvReac Type Severity Reaction Status Date / Time No Known Allergies Allergy Verified 11/26/20 14:08 [No Known Allergies*] Review of Systems Review of Systems: Pertinent positives and negatives as stated in HPI [facility] Past Medical History Source: nursing notes reviewed Medical History Diabetes HTN (hypertension) Renal failure Sleep apnea Social History Social History Alcohol intake: current Alcohol intake frequency: holidays/special occasions only Smoked in Last 30 Days: Yes Use of substances other than those prescribed or required for medical reasons: No Any prior treatment program specific to substance use: No Advance Directives: No Advance Directives Information Provided: No Physical Exam ED Vital Signs: Vital Signs - 24 hr 04/18/23 17:42 04/18/23 19:04 04/18/23 20:31 Temperature 99.3 F 100.1 F 98.3 F Pulse Rate 83 102 H 91 Respiratory Rate 20 16 16 Blood Pressure 188/103 H 120/65 141/66 H Pulse Oximetry 97 98 100 Oxygen Delivery Method Room Air Room Air Room Air 04/18/23 18:00 Temperature 98.6 F Pulse Rate 90 Respiratory Rate 18 Blood Pressure 137/80 Pulse Oximetry 98 Oxygen Delivery Method Room Air BMI result Body Mass Index 30.1 VITAL SIGNS: Reviewed. GENERAL: Chronically ill, in no acute distress. HEAD: Normocephalic/atraumatic EYES: PERRLA, EOMI EARS: Ext canals without abnormality NOSE: Nares patent bilateral OROPHARYNX: no oral lesions noted, posterior pharynx clear NECK: Supple, no adenopathy LUNGS: Normal breath sounds. No adventitious sounds or accessory muscle use. SpO2<98> CARDIOVASCULAR: Regular rate and rhythm without noted murmurs, no JVD or lower extremity edema. ABDOMEN: Soft, non-tender, non-distended with bowel sounds. MUSCULOSKELETAL: No tenderness, deformities, or effusions noted on gross inspection. EXTREMITIES: No cyanosis, clubbing or edema. RIGHT FOOT: Please review pictures below, there is an obvious gangrenous 2nd right toe with corresponding erythema of the entire foot, there is warmth on tactile evaluation with tenderness to palpation; LEFT FOOT: Appears desiccated but obvious skin breakdown primarily involving the right great toe with underlying pressure wound to the pad of the left great toe no obvious erythema or induration SKIN: Inspection of the skin reveals no rashes NEUROLOGIC: Alert and oriented x 4. Strength and sensation to light touch were grossly intact x 4. Course Course Course Narrative: This is a rapid medical exam. Deferred additional HPI, ROS, PE to primary provider, 42 yo male with past medical history of NIDDM, CKD, HTN, ORTEGA here with right lower leg pain x 2 days with swelling and redness. On exam patient with necrotic 2nd toe right foot with subsequent cellulitis. Will need admission Ordered labs, x-ray right foot. Medications Administered Generic Name Dose Route Start Last Admin Trade Name Freq PRN Reason Stop Dose Admin Sodium Chloride 2,000 mls @ 999 mls/hr 04/18/23 20:45 04/18/23 20:49 Ns IV 04/18/23 22:45 999 mls/hr .Q2H1M LYSSA Administration Discontinued Medications Generic Name Dose Route Start Last Admin Trade Name Freq PRN Reason Stop Dose Admin Acetaminophen 975 mg 04/18/23 19:33 04/18/23 19:46 Acetaminophen 325 Mg Tablet PO 04/18/23 19:34 975 mg ONCE ONE Administration Piperacillin Sod/Tazobactam 50 mls @ 100 mls/hr 04/18/23 18:40 04/18/23 19:00 Sod 3.375 gm/ Sodium Chloride IV 04/18/23 19:09 100 mls/hr ONCE ONE Administration Vancomycin HCl 2,000 mg in 500 mls @ 250 mls/hr 04/18/23 18:40 04/18/23 19:00 Vancomycin/Ns IV 04/18/23 20:39 250 mls/hr ONCE ONE Administration Sodium Chloride 1,000 mls @ 999 mls/hr 04/18/23 19:45 04/18/23 19:41 Ns IV 04/18/23 20:45 999 mls/hr .Q1H1M LYSSA Administration Ibuprofen 400 mg 04/18/23 19:33 04/18/23 19:46 Ibuprofen 400 Mg Tablet PO 04/18/23 19:34 400 mg ONCE ONE Administration Insulin Human Lispro 5 unit 04/18/23 19:50 04/18/23 20:48 Insulin Lispro 100 Unit/Ml 3 Ml Vial SUBCUT 04/18/23 19:51 5 unit ONCE ONE Administration Medical Decision Making Medical Decision Making [facility] Narrative: 193: Sepsis, osteo, lactic, BCx, abx, and fluids. I reviewed all investigations and my interpretation is this patient has wet gangrene to the right foot with hyperglycemia and corresponding presence of beta hydroxybutyrate with mild acidosis, no anion gap, VBG demonstrates a pH of 7.4, patient received 5 units insulin subcutaneous he has also received a total of 2 L of IV fluids and on correction for sodium is actually 125/128 depending on method but patient does not demonstrate any seizure or altered mental status. I did discuss this case with inpatient hospitalist who accepts admission. Differential Diagnosis Please see the discussion above Consult Healthcare Provider Management of the patient was discussed with: Hospitalist Please see the discussion above Lab Data Please see the discussion above 04/18/23 18:24 04/18/23 18:24 Labs: Lab Results 04/18/23 04/18/23 04/18/23 Range/Units 18:24 18:24 18:24 WBC 35.2 H* (4.8-10.8) X10*3/uL RBC 3.70 L (4.60-5.80) X10*6/uL Hgb 10.1 L (14.0-18.0) g/dl Hct 30.8 L (42.0-52.0) % MCV 83.2 (80.0-98.0) fL MCH 27.3 (27.0-33.0) pg MCHC 32.8 (31.0-36.0) g/dl RDW 12.3 (11.0-16.0) % Plt Count 265 (160-400) X10*3/uL MPV 12.2 (9.4-12.4) fL Immature Gran % (Auto) 2.1 H (0.0-0.4) % Neut % (Auto) 90.1 H (45-73) % Lymph % (Auto) 2.8 L (20-40) % [place] % (Auto) 4.7 (2-11) % Eos % (Auto) 0.1 (0-4) % Baso % (Auto) 0.2 (0-2) % Lymph # (Auto) 1.0 L (1.2-4.9) X10*3/uL [place] # (Auto) 1.7 H (0.1-1.2) X10*3/uL Eos # (Auto) 0.1 (0.0-0.4) X10*3/uL Baso # (Auto) 0.1 (0.0-0.2) X10*3/uL Abs Immat Gran (auto) 0.73 H (0.00-0.03) X10*3/uL Absolute Neuts (auto) 31.7 H (2.0-8.3) x10*3/uL Absolute Nucleated RBC 0.000 (0.0-0.012) X10*3/uL Nucleated RBC % (auto) 0.0 (0.0-0.2) /100WBC Smear Tech's Comments VERIFIED VBG pH (7.32-7.43) VBG pCO2 mmHg VBG pO2 mmHg VBG HCO3 (22-26) mmol/L VBG O2 Saturation % VBG Base Excess mmol/L Sodium 118 L* (135-145) mmol/L Potassium 4.2 (3.3-5.1) mmol/L Chloride 89 L (96-108) mmol/L Carbon Dioxide 17 L (22-29) mmol/L Anion Gap 16 (12-20) BUN 32 H (9-16) mg/dL Creatinine 2.81 H (0.5-1.4) mg/dL Estim Creat Clear Calc 38.8 Estimated GFR 25 Random Glucose 529 H* (60-115) mg/dL Lactic Acid 1.6 (0.5-2.0) mmol/L Calcium 8.8 D (8.4-10.2) mg/dL Phosphorus 2.7 (2.7-4.5) mg/dL Magnesium 2.0 (1.6-2.6) mg/dL Total Bilirubin 0.3 (0.0-1.0) mg/dL Direct Bilirubin 0.2 (0.0-0.5) mg/dL AST 25 (5-37) U/L ALT 11 (0-40) U/L Alkaline Phosphatase 175 H (39-117) U/L Total Protein 7.5 (6.5-8.0) g/dL Albumin 2.3 L (3.5-5.0) g/dL B-Hydroxybutyrate 0.04 H (0.02-0.027) mmol/L 04/18/23 Range/Units 20:44 WBC (4.8-10.8) X10*3/uL RBC (4.60-5.80) X10*6/uL Hgb (14.0-18.0) g/dl Hct (42.0-52.0) % MCV (80.0-98.0) fL MCH (27.0-33.0) pg MCHC (31.0-36.0) g/dl RDW (11.0-16.0) % Plt Count (160-400) X10*3/uL MPV (9.4-12.4) fL Immature Gran % (Auto) (0.0-0.4) % Neut % (Auto) (45-73) % Lymph % (Auto) (20-40) % [place] % (Auto) (2-11) % Eos % (Auto) (0-4) % Baso % (Auto) (0-2) % Lymph # (Auto) (1.2-4.9) X10*3/uL [place] # (Auto) (0.1-1.2) X10*3/uL Eos # (Auto) (0.0-0.4) X10*3/uL Baso # (Auto) (0.0-0.2) X10*3/uL Abs Immat Gran (auto) (0.00-0.03) X10*3/uL Absolute Neuts (auto) (2.0-8.3) x10*3/uL Absolute Nucleated RBC (0.0-0.012) X10*3/uL Nucleated RBC % (auto) (0.0-0.2) /100WBC Smear Tech's Comments VBG pH 7.40 (7.32-7.43) VBG pCO2 45 mmHg VBG pO2 33 mmHg VBG HCO3 29 H (22-26) mmol/L VBG O2 Saturation 55.0 % VBG Base Excess 3.8 mmol/L Sodium (135-145) mmol/L Potassium (3.3-5.1) mmol/L Chloride (96-108) mmol/L Carbon Dioxide (22-29) mmol/L Anion Gap (12-20) BUN (9-16) mg/dL Creatinine (0.5-1.4) mg/dL Estim Creat Clear Calc Estimated GFR Random Glucose (60-115) mg/dL Lactic Acid (0.5-2.0) mmol/L Calcium (8.4-10.2) mg/dL Phosphorus (2.7-4.5) mg/dL Magnesium (1.6-2.6) mg/dL Total Bilirubin (0.0-1.0) mg/dL Direct Bilirubin (0.0-0.5) mg/dL AST (5-37) U/L ALT (0-40) U/L Alkaline Phosphatase (39-117) U/L Total Protein (6.5-8.0) g/dL Albumin (3.5-5.0) g/dL B-Hydroxybutyrate (0.02-0.027) mmol/L Independent Interpretation I performed an independent interpretation of an: EKG Interpretation: Sinus tachycardia, HR-113, no STEMI, HI/QRS/QTC is within normal limits. Radiology Impression Radiologist Impression: My interpretation is in agreement with radiology's impression External Record Review External record reviewed: Prior outpatient labs Chronic Conditions Patient?s care impacted by: Diabetes Discharge Plan Discharge Clinical Impression: Diabetic wet gangrene of the foot, Hyperglycemia, Osteomyelitis, Sepsis, Pseudohyponatremia Patient Disposition: Admitted As Inpatient Prescriptions: No Action lisinopril 20 mg Tablet 20 mg PO DAILY multivitamin Tablet 1 tab PO DAILY atorvastatin 40 mg tablet 40 mg PO BEDTIME glipizide 10 mg tablet extended release 24hr 10 mg PO DAILY omeprazole 20 mg capsule,delayed release(DR/EC) 20 mg PO DAILY@0630 melatonin 5 mg tablet 5 mg PO BEDTIME PRN (Reason: insomnia)
--- NOTE | 2023-04-18 17:45 | ECG_ITS ---
Test Reason : TACHY Blood Pressure : / mmHG Vent. Rate : 113 BPM Atrial Rate : 113 BPM P-R Int : 138 ms QRS Dur : 082 ms QT Int : 320 ms P-R-T Axes : 040 058 051 degrees QTc Int : 438 ms Sinus tachycardia Otherwise normal ECG When compared with ECG of 28-FEB-2021 23:56, Sinus rhythm has replaced Ectopic atrial rhythm Referred By: Pilar Suazo Electronically Signed By:YUNIER SIMON MD
[2023-04-18 18:32] LABS: Basophils Absolute Auto 0.1 X10*3/uL (0.0-0.2); Basophils Percent Auto 0.2 % (0-2); Eosinophils Absolute Auto 0.1 X10*3/uL (0.0-0.4); Eosinophils Percent Auto 0.1 % (0-4); Hematocrit 30.8 % (42.0-52.0); Hemoglobin 10.1 g/dl (14.0-18.0); Imm Gran Abs Auto 0.73 X10*3/uL (0.00-0.03); Imm Gran Pct Auto 2.1 % (0.0-0.4); Lymphocytes Percent Auto 2.8 % (20-40); MANUAL DIFF FLAG SCAN; Mean Corpuscular HGB Conc 32.8 g/dl (31.0-36.0); Mean Corpuscular Hemoglobin 27.3 pg (27.0-33.0); Mean Corpuscular Volume 83.2 fL (80.0-98.0); Mean Platelet Volume 12.2 fL (9.4-12.4); Monocytes Absolute Auto 1.7 X10*3/uL (0.1-1.2); Monocytes Percent Auto 4.7 % (2-11); Neutrophils Absolute Auto 31.7 x10*3/uL (2.0-8.3); Neutrophils Percent Auto 90.1 % (45-73); Platelet Count 265 X10*3/uL (160-400); Red Cell Distribution Width 12.3 % (11.0-16.0); SCAN SMEAR FLAG 1
[2023-04-18 18:39] LABS: White Blood Count 35.2 X10*3/uL (4.8-10.8)
[2023-04-18 18:49] LABS: Lactic Acid 1.6 mmol/L (0.5-2.0)
[2023-04-18 19:00] LABS: SLIDE REVIEW VERIFIED
[2023-04-18] MEDS: Piperacillin Sodium/Tazobactam 3.375 GM in 0.9 % Sodium Chloride 50 ML IV (19:00)
[2023-04-18] MEDS: vancomycin/NS 2,000 MG/500 ML PLAST..BAG 250 MG IV (19:00)
[2023-04-18 19:03] LABS: Alanine Aminotransferase 11 U/L (0-40); Albumin Level 2.3 g/dL (3.5-5.0); Alkaline Phosphatase 175 U/L (39-117); Anion Gap 16 (12-20); Aspartate Amino Transferase 25 U/L (5-37); Bilirubin Direct 0.2 mg/dL (0.0-0.5); Bilirubin Total 0.3 mg/dL (0.0-1.0); Blood Urea Nitrogen 32 mg/dL (9-16); Calcium 8.8 mg/dL (8.4-10.2); Carbon Dioxide 17 mmol/L (22-29); Chloride 89 mmol/L (96-108); Creatinine Clr Calc Pharmacy 38.8; Estimated Glomerular Filt Rate 25; Glucose Random 529 mg/dL (60-115); Potassium 4.2 mmol/L (3.3-5.1); Sodium 118 mmol/L (135-145); Total Protein 7.5 g/dL (6.5-8.0)
[2023-04-18] MEDS: 0.9 % Sodium Chloride 1,000 ML 999 ML IV (19:41)
[2023-04-18] MEDS: Ibuprofen 400 MG TABLET PO (19:46)
[2023-04-18] MEDS: Acetaminophen 325 MG TABLET 975 MG PO (19:46)
--- NOTE | 2023-04-18 19:46 | P.HPHOSP_ITS ---
patient seen examined at bedside. Being evaluated for osteomyelitis of right 2nd phalanges with evidence of osteomyelitis. Patient also has evidence of osteomyelitis of right big toe. Will consult surgical team, broad-spectrum antibiotics, ID also consulted History of Present Illness Date of Service: 04/18/23 Attending physician on admission: Diogo Garcia Chief Complaint: Right lower leg pain Pt is a 42-year-old male with a PMH significant for?HTN, HLD, non insulin-depen dent diabetes type 2, and CKD stage III who presents to the ED with?right foot pain, swelling, and redness, and discoloration of his 2nd toe. Patient states that yesterday he began noticing pain on the bottom of his right foot with walking, and had swelling and redness of right foot and lower leg. The second digit of his right foot also became discolored and the skin fell off. Patient denies any specific pain in this toe. Patient also denies any systemic symptoms: No fever, chills, nausea, vomiting. Denies chest pain/pressure, palpitations. No shortness of breath. No abdominal pain. Patient denies a history of peripheral neuropathy. Pt currently only on glipizide for diabetes type 2 man ageadrian, says he has been taking his medications as prescribed, the patient noted he forgot to take his medication earlier today. Patient also notes that he is not regularly followed by a PCP since he has been having some difficulty scheduling an appointment. The patient has not been measuring his sugars daily or adhering to a strict diabetic diet. In the ED patient had a temperature up to 100.1, was tachycardic up to 102, and hypertensive up to 188/103. Labs were significant for leukocytosis of 35.2, H&H of 10.1/30.8, sodium of 118, chloride of 89, carbon dioxide of 17, BUN of 32, creatinine of 2.81, random glucose of 529, C-reactive protein of 27.75, albumin 2.3. VBG pH 7.4 with VBG bicarb of 29. Lactic acid 1.6, magnesium 2.0. Beta hydroxybutyrate 0.04. X-ray of right foot showed erosion and destruction of 2nd distal phalanx suggestive of osteomyelitis with marked soft tissue swelling of the 2nd digit along the dorsum of the foot. There is also speckled foci of gas overlying the 2nd digit, unclear if intrinsic soft tissue gas or external soft tissue. EKG demonstrated sinus tachycardia of [address] elevations or depressions. Pt was treated with vanco and Zosyn, 3L normal saline, acetaminophen, and ibuprofen, and given 5 units of insulin. Pt will be admitted to the hospital for treatment further evaluation of osteomyelitis of 2nd digit of right foot in the setting of uncontrolled diabetes type 2. Review of Systems Review of Systems: Right foot pain Discoloration of 2nd digit of right foot Redness and swelling of right lower leg Patient denies fever, chills, nausea, vomiting No chest pain/pressure, palpitations Denies shortness of breath [facility] Medical History Diabetes HTN (hypertension) Renal failure Sleep apnea Social History Alcohol intake: never Advance Directives: No Advance Directives Information Provided: No Meds Allergies Allergy/AdvReac Type Severity Reaction Status Date / Time No Known Allergies Allergy Verified 11/26/20 14:08 [No Known Allergies*] Active Medications: Current Medications Vancomycin HCl (Vancomycin/Ns) 2,000 mg in 500 mls @ 250 mls/hr IV ONCE ONE Stop: 04/18/23 20:39 Last Admin: 04/18/23 19:00 Dose: 250 mls/hr Sodium Chloride (Ns) 1,000 mls @ 999 mls/hr IV .Q1H1M LYSSA Stop: 04/18/23 20:45 Last Admin: 04/18/23 19:41 Dose: 999 mls/hr Pharmacy Consult (Consult Rx Perform Med Rec) 1 each MISCELLANE ONCE PRN PRN Reason: Consult order Home Medications Medication Instructions Recorded Confirmed Last Taken Type lisinopril 20 mg tablet 20 mg PO DAILY 11/26/20 04/18/23 04/17/23 History atorvastatin 40 mg tablet 40 mg PO BEDTIME 04/18/23 04/18/23 04/17/23 History glipizide 10 mg tablet, extended 10 mg PO DAILY 04/18/23 04/18/23 04/17/23 History release 24 hr melatonin 5 mg tablet 5 mg PO BEDTIME PRN insomnia 04/18/23 04/18/23 04/17/23 History multivitamin 1 tab PO DAILY 0604/18/23 04/17/23 History omeprazole 20 mg capsule,delayed 20 mg PO DAILY@0630 04/18/23 04/18/23 04/17/23 History release Physical Exam Vital Signs and Narrative: Vital Signs: Last Vital Signs Temp 100.1 F 04/18/23 19:04 Pulse 102 H 04/18/23 19:04 Resp 16 04/18/23 19:04 BP 120/65 04/18/23 19:04 Pulse Ox 98 04/18/23 19:04 O2 Del Method Room Air 04/18/23 19:04 BMI result Body Mass Index 30.1 Constitutional: Alert, in no acute distress. Mental Status: Oriented to person, place and time. Eyes: Pupils are equal, round, and reactive to light. Ear, Nose, and Throat: Oropharynx clear, mucous membranes moist. Ears and nose without deformities. Trachea midline. Respiratory: Clear to auscultation bilaterally. No wheezing, rales, or rhonchi. Cardiovascular: S1, S2 regular. No murmurs, rubs, or gallops. Gastrointestinal: Abdomen soft, non-tender, non-distended. Normal bowel sounds. Neurologic: Cranial nerves II-XII are grossly intact bilaterally. No focal neurological deficits. Moves all extremities spontaneously. Musculoskeletal: No cyanosis or clubbing. Extremities: Please see pictures below. Blackened discoloration of second digit of right toe with loss of skin on the pedal aspect and with ulcer on the pedal distal aspect. Warmth and erythema of foot extending up lower right leg. First digit of right foot with dessicated skin, skin loss on pedal aspect, and ulcer at the tip of the toe. No obvious signs of infection. Psychiatric: Normal mood and affect. Results Labs 04/18/23 18:24 04/18/23 18:24 Labs: Laboratory Results - last 24 hr 04/18/23 04/18/23 04/18/23 18:24 18:24 18:24 MCV 83.2 MCH 27.3 MCHC 32.8 RDW 12.3 Plt Count 265 MPV 12.2 Immature Gran % (Auto) 2.1 H Neut % (Auto) 90.1 H Lymph % (Auto) 2.8 L [place] % (Auto) 4.7 Eos % (Auto) 0.1 Baso % (Auto) 0.2 Lymph # (Auto) 1.0 L [place] # (Auto) 1.7 H Eos # (Auto) 0.1 Baso # (Auto) 0.1 Abs Immat Gran (auto) 0.73 H Absolute Neuts (auto) 31.7 H Absolute Nucleated RBC 0.000 Nucleated RBC % (auto) 0.0 Smear Tech's Comments VERIFIED Anion Gap 16 Estim Creat Clear Calc 38.8 Estimated GFR 25 Random Glucose 529 H* Lactic Acid 1.6 Calcium 8.8 D Total Bilirubin 0.3 Direct Bilirubin 0.2 AST 25 ALT 11 Alkaline Phosphatase 175 H Total Protein 7.5 Albumin 2.3 L Imaging Radiologist's Impressions: Impressions Foot X-Ray 04/18/23 18:37 IMPRESSION: 1. Erosion and destruction of second distal phalanx suggestive of osteomyelitis. 2. Marked soft tissue swelling about the second digit and along the dorsum of the foot. Speckled foci of gas overlying the second digit, and unclear if the certainty this reflects intrinsic soft tissue gas such as in the setting of gas-forming infection or is external the soft tissues. Recommend correlation with physical exam. Assessment and Plan (1) Hyperglycemia: Status: Acute (2) Osteomyelitis: Status: Acute (3) Diabetic wet gangrene of the foot: Status: Acute Plan Pt is a 42-year-old male with a PMH significant for?HTN, HLD, non insulin- dependent diabetes type 2, and CKD stage III who presents to the ED with?right foot pain, swelling, and redness, and discoloration of his 2nd toe. Patient states that yesterday he began noticing pain on the bottom of his right foot with walking, and had swelling and redness of right foot and lower leg. The second digit of his right foot also became discolored and the skin fell off. Pt will be admitted to the hospital for treatment further evaluation of osteomyelitis of 2nd digit of right foot in the setting of uncontrolled diabetes type 2. Osteomyelitis of 2nd digit of right foot X-ray of right foot found erosion and destruction of 2nd distal phalanx suggestive of osteomyelitis Patient with WBC of 35.2 and CRP of 27.75 Likely secondary to diabetic foot ulcer Will get x-ray of left foot to r/o osteomyelitis of 1st digit Patient meets sepsis criteria: WBC, tachycardia IV antibiotics: Vanco and cefepime Patient given IVF in a ED, will be placed on maintenance fluids ID consult General surgery consult Infectious disease consult Follow cultures [id number] diabetes type 2, poorly controlled Patient presents with a random glucose of 529 Patient currently only on glipizide, does not check sugars daily or adhere to diabetic diet Patient not followed closely by PCP Patient given 5 units of insulin in ED Will check A1c Patient to be placed on sliding scale insulin for now Diabetic diet Patient will need to follow-up with PCP outpatient for diabetes medication management Hyponatremia Patient's corrected sodium 128, around baseline Patient given IVF in ED Follow BMP CKD stage III Patient's creatinine 2.81, likely around baseline Patient given IVF in ED Follow BMP HLD Continue statin HTN Hold lisinopril, BP soft Full Code Attending:?Dr. Garcia DVT Prophylaxis: Lovenox Pt will require a hospitalization of at least two nights for treatment and further?evaluation of osteomyelitis of 2nd digit of right foot in the setting of uncontrolled diabetes type 2. Time Spent With Patient Time: Total time managing care of this patient today ____ minutes. Quality Stroke Does the patient have a stroke diagnosis?: No VTE Prior VTE?: No VTE Risk Level:: Medical - moderate - high VTE Device Contraindication: Treatment Not Indicated VTE Drug Contraindication: N/A - Med Ordered
[2023-04-18 20:02] LABS: Beta-Hydroxybutyrate 0.04 mmol/L (0.02-0.027); Phosphorus 2.7 mg/dL (2.7-4.5)
--- NOTE | 2023-04-18 20:35 | PHA.MEDREC ---
Pharmacy Consult ? Medication Reconciliation Pharmacy has completed the medication reconciliation. Spoke to patient with spouse at bedside. Patient states they do not take lantus insulin and that their provider told them to stop taking it a couple years ago. Patient also states that they were prescribed Invokana 100mg daily, but have not started taking it because they were worried of kidney and heart issues that could arise from the medication. Left Invokana off of med rec because patient has never started the medication.
[2023-04-18] MEDS: Insulin Lispro 100 UNIT/ML 3 ML VIAL SUBCUT (20:48)
[2023-04-18] MEDS: 0.9 % Sodium Chloride 2,000 ML 999 ML IV (20:49)
[2023-04-18 20:51] LABS: VBG Base Excess 3.8 mmol/L; VBG HCO3 29 mmol/L (22-26); VBG pCO2 45 mmHg; VBG pO2 33 mmHg
[2023-04-18 20:52] LABS: Venous Blood Gas Refer to POC result
[2023-04-18 21:20] LABS: Appearance Urine Clear; Color Urine Yellow; Glucose Urine UA >=1000 mg/dL (Negative); Leukocyte Esterase Urine Negative (Negative); Nitrite Urine Negative (Negative); Specific Gravity - Urine 1.015 (1.005-1.025); UMIC TRIGGER UACC YES; Urine Blood Small (1+) (Negative); Urine Ketones Negative (Negative); Urine Protein 300 (3+) mg/dL (Neg-Trace)
[2023-04-18 21:32] LABS: Bacteria Urine None Seen (None Seen); Hyaline Casts Urine 0-2 /LPF (0-2); Squamous Epithelial Cell Urine 0-2 /HPF (0-2); WBC Urine 0-5 /HPF (0-5)
[2023-04-18 21:44] LABS: C Reactive Protein 27.75 mg/dL (< or = 0.50)
--- NOTE | 2023-04-18 22:17 | PHA.PROG ---
Admission Date/Time: April 18, 2023 21:53 Indication: OSTEO Weight in k.254 kg Serum Creatinine - Last 168 Hours 04/18/23 18:24 Creatinine 2.81 H Estimated CrCl and GFR - Last 168 Hours 04/18/23 18:24 Estim Creat Clear Calc 38.8 Estimated GFR 25 Vancomycin Loading Dose: 2000 MG Current Vancomycin Dosing Regimen: 500 Vancomycin Monitoring using AUC goal of 400 - 600 range with trough as surrogate marker: 478 Date and Time for next Vancomycin Level to be drawn: 04/19 @ 1800 Pharmacist Comments on Vancomycin Plan: Vancomycin dosing will take advantage of Assembly as a clinical decision support tool that uses Bayesian modeling to calculate individual patient's pharmacokinetic parameters and forecast the patient's drug concentration time course with the target goal AUC 24 range of 400 - 600 mg/L/hr.
[2023-04-18 22:55] LABS: Glucose, Whole Blood 326 mg/dL (60-115)
[2023-04-18] MEDS: Atorvastatin Calcium 40 MG TABLET PO (22:58)
[2023-04-18] MEDS: Heparin Sodium,Porcine 5,000 UNIT/ML VIAL 5000 UNIT SUBCUT (22:58)
--- NOTE | 2023-04-18 23:00 | MHC.CM.PN ---
CM met with admitted patient with bed assignment 467. Pt is disabled. Lives with mother. Has DM supplies at home. Cannot find medications in home for past 2 days. Denies any difficulty paying for medications. Pt drives. Declines HCP. Unvaccinated. PCP Dr. Stover at [facility]. THRIVE assessment negative. Denies ETOH or drug abuse. ID, wound care and General surgery pending. Pt with ganrene of 2nd right toe, ulcerations and osteomyelitis on xray. Discussed with patient and mother need for consults and possiblity of intermediate designer antibiotic therapy, as infection is in the bone. Pt and mother aware of STR and home IV therapy. Pt and mother aware that CM will follow him during his hospital stay and MDR's. CM will keep them informed and discuss post hospital care with him. No referrals placed at this time. CM will follow for discharge planning.
[2023-04-18 23:47] LABS: Glucose, Whole Blood 308 mg/dL (60-115)
[2023-04-19] VITALS (11 sets, daily range): BP systolic 113–146; BP diastolic 57–80; PULSE 80–102; RESP 14–20; TEMP 36.6–37.5; O2SAT 94–99
[2023-04-19 00:04] LABS: Anion Gap 13 (12-20); Blood Urea Nitrogen 34 mg/dL (9-16); Calcium 8.9 mg/dL (8.4-10.2); Carbon Dioxide 20 mmol/L (22-29); Chloride 95 mmol/L (96-108); Estimated Glomerular Filt Rate 24; Glucose Random 318 mg/dL (60-115); Potassium 3.9 mmol/L (3.3-5.1); Sodium 124 mmol/L (135-145)
[2023-04-19] MEDS: cefEPime HCl 2 GM in 0.9 % Sodium Chloride 50 ML IV ×2 (01:20→23:11)
[2023-04-19] MEDS: Heparin Sodium,Porcine 5,000 UNIT/ML VIAL 5000 UNIT SUBCUT ×2 (05:47→21:13)
[2023-04-19] MEDS: Omeprazole 20 MG CAPSULE.DR PO (05:47)
[2023-04-19 06:20] LABS: Hematocrit 30.4 % (42.0-52.0); Mean Corpuscular HGB Conc 32.9 g/dl (31.0-36.0); Mean Corpuscular Hemoglobin 27.7 pg (27.0-33.0); Mean Corpuscular Volume 84.2 fL (80.0-98.0); Mean Platelet Volume 11.8 fL (9.4-12.4); Platelet Count 213 X10*3/uL (160-400); Red Blood Count 3.61 X10*6/uL (4.60-5.80); Red Cell Distribution Width 12.3 % (11.0-16.0)
[2023-04-19 06:29] LABS: White Blood Count 34.4 X10*3/uL (4.8-10.8)
[2023-04-19 06:35] LABS: Anion Gap 8 (12-20); Blood Urea Nitrogen 36 mg/dL (9-16); Calcium 9.1 mg/dL (8.4-10.2); Carbon Dioxide 25 mmol/L (22-29); Chloride 98 mmol/L (96-108); Creatinine Clr Calc Pharmacy 39.7; Estimated Glomerular Filt Rate 25; Glucose Random 313 mg/dL (60-115); Potassium 4.4 mmol/L (3.3-5.1); Sodium 127 mmol/L (135-145)
[2023-04-19 07:41] LABS: Glucose, Whole Blood 242 mg/dL (60-115)
[2023-04-19] MEDS: Multivitamin TABLET 1 TAB PO (08:07)
[2023-04-19] MEDS: vancomycin HCL 500 MG in 0.9 % Sodium Chloride 100 ML 110 MG IV ×2 (08:07→20:13)
[2023-04-19] MEDS: Insulin Lispro 100 UNIT/ML 3 ML VIAL SUBCUT ×4 (08:08→20:58)
[2023-04-19] MEDS: lisinopriL 20 MG TABLET PO (08:08)
[2023-04-19 08:39] LABS: Estimated Average Glucose 260 mg/dL; Hemoglobin A1c % 10.7 %
[2023-04-19 08:51] LABS: Erythrocyte Sedimentation Rate 97 MM/HR (0-15)
[2023-04-19] MEDS: 0.9 % Sodium Chloride Flush 3 ML SYRINGE IVFLUSH ×3 (09:29→23:11)
[2023-04-19] MEDS: Acetaminophen 325 MG TABLET 650 MG PO ×2 (09:29→20:05)
[2023-04-19 11:17] LABS: Glucose, Whole Blood 311 mg/dL (60-115)
--- NOTE | 2023-04-19 11:55 | PM.CNGS ---
History of Present Illness Consult details Consult date: 04/19/23 Requesting physician: Cristina Bermudez Narrative: The pt is a 42 year old diabetic male who has gangrenous second toe. He came in last night with high sugars and his toe black. He says he wore too tight shoes 2 weeks ago and the toe started to change. He denies fevers at home but now there is necrotic black tissue anterior and dorsal aspect of his toe and spreading into the plantar area. He says he has not been on his glucose meds recently. He said this happened once also last year and improved with antibiotics. He does not work. [facility] Past Medical History Medical History Diabetes HTN (hypertension) Renal failure Sleep apnea Social History Social History Household Members: Family Housing: Apartment Do you presently have visiting nurse or other home services: No Alcohol intake: current Alcohol intake frequency: holidays/special occasions only Patient Tobacco Use Status: Former Tobacco user Smoked in Last 30 Days: Yes Use of substances other than those prescribed or required for medical reasons: No Currently Displaying Signs/Symptoms of Drug Intoxication Withdrawal: No Any prior treatment program specific to substance use: No Have you been hit, kicked, punched, or otherwise hurt by someone within the past year? If so, by whom?: No Is there a partner from a previous relationship who is making you feel unsafe now?: No Are you made to feel afraid or neglected: No Advance Directives: No Advance Directives Information Provided: No Do you have thoughts of harming others: None Do you have a plan to hurt others: No Plan Nutrition Risks: No Nutritional Risk service: No Meds Allergies Allergy/AdvReac Type Severity Reaction Status Date / Time No Known Allergies Allergy Verified 11/26/20 14:08 [No Known Allergies*] Active Medications: Current Medications Acetaminophen (Acetaminophen 325 Mg Tablet) 650 mg PO Q6H PRN PRN Reason: Pain, Mild (Pain Scale 1-3) Last Admin: 04/19/23 09:29 Dose: 650 mg Atorvastatin Calcium (Atorvastatin Calcium 40 Mg Tablet) 40 mg PO BEDTIME LYSSA Last Admin: 04/18/23 22:58 Dose: 40 mg Dextrose (Dextrose 50 % 25 Gm/50 Ml Syringe) 25 gm IVPUSH Q15M PRN; Protocol PRN Reason: per Hypoglycemia Standing Ord. Docusate Sodium (Docusate Sodium 100 Mg Capsule) 100 mg PO DAILY PRN PRN Reason: Constipation Glucose (Glucose Gel 15 Gm Gel..Gram.) 15 gm PO Q15M PRN; Protocol PRN Reason: per Hypoglycemia Standing Ord. Heparin Sodium (Porcine) (Heparin Sodium,Porcine 5,000 Unit/Ml Vial) 5,000 unit SUBCUT Q8H [facility] Last Admin: 04/19/23 05:47 Dose: 5,000 unit Cefepime HCl 2 gm/ Sodium (Chloride) 50 mls @ 100 mls/hr IV Q24H [facility] Last Infusion: 04/19/23 02:08 Dose: Infused Vancomycin HCl 500 mg/ Sodium (Chloride) 110 mls @ 110 mls/hr IV Q12H [facility] Last Infusion: 04/19/23 09:33 Dose: Infused Insulin Human Lispro (Insulin Lispro 100 Unit/Ml 3 Ml Vial) 0 unit SUBCUT QIDACHS [facility]; Protocol Last Admin: 04/19/23 08:08 Dose: 4 unit Lisinopril (Lisinopril 20 Mg Tablet) 20 mg PO DAILY [facility]; Protocol Last Admin: 04/19/23 08:08 Dose: 20 mg Melatonin (Melatonin 3 Mg Tablet) 6 mg PO BEDTIME PRN PRN Reason: insomnia Multivitamins/Vitamin C (Multivitamin Tablet) 1 tab PO DAILY [facility] Last Admin: 04/19/23 08:07 Dose: 1 tab Omeprazole (Omeprazole 20 Mg Capsule.Dr) 20 mg PO DAILY@0630 [facility] Last Admin: 04/19/23 05:47 Dose: 20 mg Ondansetron HCl (Ondansetron Hcl 4 Mg/2 Ml Vial) 4 mg IVPUSH Q8H PRN PRN Reason: Nausea and Vomiting Pharmacy Consult (Consult Rx Perform Med Rec) 1 each MISCELLANE ONCE PRN PRN Reason: Consult order Pharmacy Consult (Consult Rx Vancomycin Dosing) 1 each MISCELLANE DAILY PRN PRN Reason: Consult order Sodium Chloride (0.9 % Sodium Chloride Flush 3 Ml Syringe) 3 ml IVFLUSH QSHIFT [facility] Last Admin: 04/19/23 09:29 Dose: 3 ml Home Medications Medication Instructions Recorded Confirmed Last Taken Type lisinopril 20 mg tablet 20 mg PO DAILY 11/26/20 04/18/23 04/17/23 History atorvastatin 40 mg tablet 40 mg PO BEDTIME 04/18/23 04/18/23 04/17/23 History glipizide 10 mg tablet, extended 10 mg PO DAILY 04/18/23 04/18/23 04/17/23 History release 24 hr melatonin 5 mg tablet 5 mg PO BEDTIME PRN insomnia 04/18/23 04/18/23 04/17/23 History multivitamin 1 tab PO DAILY 04/18/23 04/18/23 04/17/23 History omeprazole 20 mg capsule,delayed 20 mg PO DAILY@0630 04/18/23 04/18/23 04/17/23 History release Physical Exam Vital Signs: Vital Signs: Last Vital Signs Temp 99.3 F 04/19/23 07:06 Pulse 102 H 04/19/23 07:06 Resp 20 04/19/23 07:06 BP 130/63 04/19/23 07:06 Pulse Ox 98 04/19/23 07:06 O2 Del Method Room Air 04/19/23 07:06 BMI result Body Mass Index 30.1 Skin: Other: strong palpable pedal pulse DP right foot swelling and erythema - second toe is black with dry gangrene superficial and wet under plantar aspect into the deeper space and adjacent toes is necrotic and leaking fluid Results Labs 04/19/23 05:51 04/19/23 05:51 Labs: Abnormal lab results 04/18/23 04/18/23 04/18/23 Range/Units 18:24 18:24 20:44 WBC 35.2 H* (4.8-10.8) X10*3/uL RBC 3.70 L (4.60-5.80) X10*6/uL Hgb 10.1 L (14.0-18.0) g/dl Hct 30.8 L (42.0-52.0) % Immature Gran % (Auto) 2.1 H (0.0-0.4) % Neut % (Auto) 90.1 H (45-73) % Lymph % (Auto) 2.8 L (20-40) % Lymph # (Auto) 1.0 L (1.2-4.9) X10*3/uL [place] # (Auto) 1.7 H (0.1-1.2) X10*3/uL Abs Immat Gran (auto) 0.73 H (0.00-0.03) X10*3/uL Absolute Neuts (auto) 31.7 H (2.0-8.3) x10*3/uL ESR (0-15) MM/HR VBG HCO3 29 H (22-26) mmol/L Sodium 118 L* (135-145) mmol/L Chloride 89 L (96-108) mmol/L Carbon Dioxide 17 L (22-29) mmol/L Anion Gap (12-20) BUN 32 H (9-16) mg/dL Creatinine 2.81 H (0.5-1.4) mg/dL POC Glucose (60-115) mg/dL Random Glucose 529 H* (60-115) mg/dL Alkaline Phosphatase 175 H (39-117) U/L C-Reactive Protein 27.75 H (< or = 0.50) mg/dL Albumin 2.3 L (3.5-5.0) g/dL Urine Protein (Neg-Trace) mg/dL Urine Glucose (UA) (Negative) mg/dL Urine Blood (Negative) Urine RBC (0-2) /HPF B-Hydroxybutyrate 0.04 H (0.02-0.027) mmol/L 04/18/23 04/18/23 04/18/23 Range/Units 21:11 22:49 23:21 WBC (4.8-10.8) X10*3/uL RBC (4.60-5.80) X10*6/uL Hgb (14.0-18.0) g/dl Hct (42.0-52.0) % Immature Gran % (Auto) (0.0-0.4) % Neut % (Auto) (45-73) % Lymph % (Auto) (20-40) % Lymph # (Auto) (1.2-4.9) X10*3/uL [place] # (Auto) (0.1-1.2) X10*3/uL Abs Immat Gran (auto) (0.00-0.03) X10*3/uL Absolute Neuts (auto) (2.0-8.3) x10*3/uL ESR (0-15) MM/HR VBG HCO3 (22-26) mmol/L Sodium 124 L (135-145) mmol/L Chloride 95 L (96-108) mmol/L Carbon Dioxide 20 L (22-29) mmol/L Anion Gap (12-20) BUN 34 H (9-16) mg/dL Creatinine 2.87 H (0.5-1.4) mg/dL POC Glucose 326 H (60-115) mg/dL Random Glucose 318 H (60-115) mg/dL Alkaline Phosphatase (39-117) U/L C-Reactive Protein (< or = 0.50) mg/dL Albumin (3.5-5.0) g/dL Urine Protein 300 (3+) H (Neg-Trace) mg/dL Urine Glucose (UA) >=1000 H (Negative) mg/dL Urine Blood Small (1+) H (Negative) Urine RBC 3-5 H (0-2) /HPF B-Hydroxybutyrate (0.02-0.027) mmol/L 04/18/23 04/19/23 04/19/23 Range/Units 23:43 05:51 05:51 WBC 34.4 H* (4.8-10.8) X10*3/uL RBC 3.61 L (4.60-5.80) X10*6/uL Hgb 10.0 L (14.0-18.0) g/dl Hct 30.4 L (42.0-52.0) % Immature Gran % (Auto) (0.0-0.4) % Neut % (Auto) (45-73) % Lymph % (Auto) (20-40) % Lymph # (Auto) (1.2-4.9) X10*3/uL [place] # (Auto) (0.1-1.2) X10*3/uL Abs Immat Gran (auto) (0.00-0.03) X10*3/uL Absolute Neuts (auto) (2.0-8.3) x10*3/uL ESR (0-15) MM/HR VBG HCO3 (22-26) mmol/L Sodium 127 L (135-145) mmol/L Chloride (96-108) mmol/L Carbon Dioxide (22-29) mmol/L Anion Gap 8 L (12-20) BUN 36 H (9-16) mg/dL Creatinine 2.75 H (0.5-1.4) mg/dL POC Glucose 308 H (60-115) mg/dL Random Glucose 313 H (60-115) mg/dL Alkaline Phosphatase (39-117) U/L C-Reactive Protein (< or = 0.50) mg/dL Albumin (3.5-5.0) g/dL Urine Protein (Neg-Trace) mg/dL Urine Glucose (UA) (Negative) mg/dL Urine Blood (Negative) Urine RBC (0-2) /HPF B-Hydroxybutyrate (0.02-0.027) mmol/L 04/19/23 04/19/23 04/19/23 Range/Units 05:51 07:37 11:09 WBC (4.8-10.8) X10*3/uL RBC (4.60-5.80) X10*6/uL Hgb (14.0-18.0) g/dl Hct (42.0-52.0) % Immature Gran % (Auto) (0.0-0.4) % Neut % (Auto) (45-73) % Lymph % (Auto) (20-40) % Lymph # (Auto) (1.2-4.9) X10*3/uL [place] # (Auto) (0.1-1.2) X10*3/uL Abs Immat Gran (auto) (0.00-0.03) X10*3/uL Absolute Neuts (auto) (2.0-8.3) x10*3/uL ESR 97 H (0-15) MM/HR VBG HCO3 (22-26) mmol/L Sodium (135-145) mmol/L Chloride (96-108) mmol/L Carbon Dioxide (22-29) mmol/L Anion Gap (12-20) BUN (9-16) mg/dL Creatinine (0.5-1.4) mg/dL POC Glucose 242 H 311 H (60-115) mg/dL Random Glucose (60-115) mg/dL Alkaline Phosphatase (39-117) U/L C-Reactive Protein (< or = 0.50) mg/dL Albumin (3.5-5.0) g/dL Urine Protein (Neg-Trace) mg/dL Urine Glucose (UA) (Negative) mg/dL Urine Blood (Negative) Urine RBC (0-2) /HPF B-Hydroxybutyrate (0.02-0.027) mmol/L Short CBC 04/18/23 04/19/23 Range/Units 18:24 05:51 WBC 35.2 H* 34.4 H* (4.8-10.8) X10*3/uL Hgb 10.1 L 10.0 L (14.0-18.0) g/dl Hct 30.8 L 30.4 L (42.0-52.0) % Plt Count 265 213 (160-400) X10*3/uL BMP 04/18/23 04/18/23 04/19/23 18:24 23:21 05:51 Sodium 118 L* 124 L 127 L Potassium 4.2 3.9 4.4 Chloride 89 L 95 L 98 Carbon Dioxide 17 L 20 L 25 BUN 32 H 34 H 36 H Creatinine 2.81 H 2.87 H 2.75 H Calcium 8.8 D 8.9 9.1 Liver Function 04/18/23 Range/Units 18:24 Total Bilirubin 0.3 (0.0-1.0) mg/dL Direct Bilirubin 0.2 (0.0-0.5) mg/dL AST 25 (5-37) U/L ALT 11 (0-40) U/L Alkaline Phosphatase 175 H (39-117) U/L Albumin 2.3 L (3.5-5.0) g/dL Urine 04/18/23 Range/Units 21:11 Urine Color Yellow Urine Appearance Clear Urine pH 6.0 (5.0-9.0) Ur Specific [place] 1.015 (1.005-1.025) Urine Protein 300 (3+) H (Neg-Trace) mg/dL Urine Glucose (UA) >=1000 H (Negative) mg/dL All other labs normal. 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 Needs to have toe amputated and junction with foot debrided or else will become septic. no chance of saving this now. Good blood flow to the foot and toes so if we do amputation now with possible need for additional debridements I am optimistic he will heal this after infectious source is removed. Time Spent With Patient Time: Total time managing care of this patient today __45__ minutes. Procedures Date of Service Date of Service: 04/19/23
--- NOTE | 2023-04-19 14:48 | P.CONAN_ITS ---
[facility] Active Problems Active Problems: All Active Problems (Updated 04/18/23 @ 21:19 by Rosalee Torres MD) Diabetic wet gangrene of the foot (Acute) Hyperglycemia (Acute) Osteomyelitis (Acute) Sepsis (Acute) Pseudohyponatremia (Acute) Past Medical History Medical History Diabetes HTN (hypertension) Renal failure Sleep apnea Family History Family history of problems with anesthesia: No Surgical History History of Problems with Anesthesia: No Social History Social History Household Members: Family Housing: Apartment Do you presently have visiting nurse or other home services: No Alcohol intake: current Alcohol intake frequency: holidays/special occasions only Patient Tobacco Use Status: Former Tobacco user Smoked in Last 30 Days: Yes Use of substances other than those prescribed or required for medical reasons: No Currently Displaying Signs/Symptoms of Drug Intoxication Withdrawal: No Any prior treatment program specific to substance use: No Have you been hit, kicked, punched, or otherwise hurt by someone within the past year? If so, by whom?: No Is there a partner from a previous relationship who is making you feel unsafe now?: No Are you made to feel afraid or neglected: No Advance Directives: No Advance Directives Information Provided: No Do you have thoughts of harming others: None Do you have a plan to hurt others: No Plan Nutrition Risks: No Nutritional Risk service: No Meds Allergies Allergy/AdvReac Type Severity Reaction Status Date / Time No Known Allergies Allergy Verified 11/26/20 14:08 [No Known Allergies*] Active Medications: Current Medications Acetaminophen (Acetaminophen 325 Mg Tablet) 650 mg PO Q6H PRN PRN Reason: Pain, Mild (Pain Scale 1-3) Last Admin: 04/19/23 09:29 Dose: 650 mg Atorvastatin Calcium (Atorvastatin Calcium 40 Mg Tablet) 40 mg PO BEDTIME LYSSA Last Admin: 04/18/23 22:58 Dose: 40 mg Dextrose (Dextrose 50 % 25 Gm/50 Ml Syringe) 25 gm IVPUSH Q15M PRN; Protocol PRN Reason: per Hypoglycemia Standing Ord. Docusate Sodium (Docusate Sodium 100 Mg Capsule) 100 mg PO DAILY PRN PRN Reason: Constipation Glucose (Glucose Gel 15 Gm Gel..Gram.) 15 gm PO Q15M PRN; Protocol PRN Reason: per Hypoglycemia Standing Ord. Heparin Sodium (Porcine) (Heparin Sodium,Porcine 5,000 Unit/Ml Vial) 5,000 unit SUBCUT Q8H [facility] Last Admin: 04/19/23 14:09 Dose: Not Given Cefepime HCl 2 gm/ Sodium (Chloride) 50 mls @ 100 mls/hr IV Q24H [facility] Last Infusion: 04/19/23 02:08 Dose: Infused Vancomycin HCl 500 mg/ Sodium (Chloride) 110 mls @ 110 mls/hr IV Q12H [facility] Last Infusion: 04/19/23 09:33 Dose: Infused Insulin Human Lispro (Insulin Lispro 100 Unit/Ml 3 Ml Vial) 0 unit SUBCUT QIDACHS [facility]; Protocol Last Admin: 04/19/23 13:24 Dose: 8 unit Lisinopril (Lisinopril 20 Mg Tablet) 20 mg PO DAILY [facility]; Protocol Last Admin: 04/19/23 08:08 Dose: 20 mg Melatonin (Melatonin 3 Mg Tablet) 6 mg PO BEDTIME PRN PRN Reason: insomnia Multivitamins/Vitamin C (Multivitamin Tablet) 1 tab PO DAILY [facility] Last Admin: 04/19/23 08:07 Dose: 1 tab Omeprazole (Omeprazole 20 Mg Capsule.Dr) 20 mg PO DAILY@0630 [facility] Last Admin: 04/19/23 05:47 Dose: 20 mg Ondansetron HCl (Ondansetron Hcl 4 Mg/2 Ml Vial) 4 mg IVPUSH Q8H PRN PRN Reason: Nausea and Vomiting Pharmacy Consult (Consult Rx Perform Med Rec) 1 each MISCELLANE ONCE PRN PRN Reason: Consult order Pharmacy Consult (Consult Rx Vancomycin Dosing) 1 each MISCELLANE DAILY PRN PRN Reason: Consult order Sodium Chloride (0.9 % Sodium Chloride Flush 3 Ml Syringe) 3 ml IVFLUSH QSHIFT [facility] Last Admin: 04/19/23 09:29 Dose: 3 ml Home Medications Medication Instructions Recorded Confirmed Last Taken Type lisinopril 20 mg tablet 20 mg PO DAILY 11/26/20 04/18/23 04/17/23 History atorvastatin 40 mg tablet 40 mg PO BEDTIME 04/18/23 04/18/23 04/17/23 History glipizide 10 mg tablet, extended 10 mg PO DAILY 04/18/23 04/18/23 04/17/23 History release 24 hr melatonin 5 mg tablet 5 mg PO BEDTIME PRN insomnia 04/18/23 04/18/23 04/17/23 History multivitamin 1 tab PO DAILY 04/18/23 04/18/23 04/17/23 History omeprazole 20 mg capsule,delayed 20 mg PO DAILY@0630 04/18/23 04/18/23 04/17/23 History release Exam Exam Date and Time: April 19, 2023 144 Height,Weight and Vital Signs: Height 5 ft 10 in Weight 95.254 kg Last Vital Signs Temp 99.5 F 04/19/23 14:43 Pulse 100 04/19/23 14:43 Resp 16 04/19/23 14:43 BP 113/58 L 04/19/23 14:43 Pulse Ox 94 04/19/23 14:43 O2 Del Method Room Air 04/19/23 14:43 Pertinent Lab Results Pertinent Lab Results: Laboratory Tests 04/18/23 04/18/23 04/18/23 18:24 18:24 18:24 WBC 35.2 H* RBC 3.70 L Hgb 10.1 L Hct 30.8 L MCV 83.2 MCH 27.3 MCHC 32.8 RDW 12.3 Plt Count 265 MPV 12.2 Immature Gran % (Auto) 2.1 H Neut % (Auto) 90.1 H Lymph % (Auto) 2.8 L [place] % (Auto) 4.7 Eos % (Auto) 0.1 Baso % (Auto) 0.2 Lymph # (Auto) 1.0 L [place] # (Auto) 1.7 H Eos # (Auto) 0.1 Baso # (Auto) 0.1 Abs Immat Gran (auto) 0.73 H Absolute Neuts (auto) 31.7 H Absolute Nucleated RBC 0.000 Nucleated RBC % (auto) 0.0 Smear Tech's Comments VERIFIED ESR VBG pH VBG pCO2 VBG pO2 VBG HCO3 VBG O2 Saturation VBG Base Excess Sodium 118 L* Potassium 4.2 Chloride 89 L Carbon Dioxide 17 L Anion Gap 16 BUN 32 H Creatinine 2.81 H Estim Creat Clear Calc 38.8 Estimated GFR 25 POC Glucose Random Glucose 529 H* Estimat Average Glucose Hemoglobin A1c % Lactic Acid 1.6 Calcium 8.8 D Phosphorus 2.7 Magnesium 2.0 Total Bilirubin 0.3 Direct Bilirubin 0.2 AST 25 ALT 11 Alkaline Phosphatase 175 H C-Reactive Protein 27.75 H Total Protein 7.5 Albumin 2.3 L Urine Color Urine Appearance Urine pH Ur Specific [place] Urine Protein Urine Glucose (UA) Urine Ketones Urine Blood Urine Nitrite Ur Leukocyte Esterase Urine RBC Urine WBC Ur Squamous Epith Cells Urine Bacteria Hyaline Casts B-Hydroxybutyrate 0.04 H 04/18/23 04/18/23 04/18/23 18:24 20:44 21:11 WBC RBC Hgb Hct MCV MCH MCHC RDW Plt Count MPV Immature Gran % (Auto) Neut % (Auto) Lymph % (Auto) [place] % (Auto) Eos % (Auto) Baso % (Auto) Lymph # (Auto) [place] # (Auto) Eos # (Auto) Baso # (Auto) Abs Immat Gran (auto) Absolute Neuts (auto) Absolute Nucleated RBC Nucleated RBC % (auto) Smear Tech's Comments ESR VBG pH 7.40 VBG pCO2 45 VBG pO2 33 VBG HCO3 29 H VBG O2 Saturation 55.0 VBG Base Excess 3.8 Sodium Potassium Chloride Carbon Dioxide Anion Gap BUN Creatinine Estim Creat Clear Calc Estimated GFR POC Glucose Random Glucose Estimat Average Glucose 260 Hemoglobin A1c % 10.7 Lactic Acid Calcium Phosphorus Magnesium Total Bilirubin Direct Bilirubin AST ALT Alkaline Phosphatase C-Reactive Protein Total Protein Albumin Urine Color Yellow Urine Appearance Clear Urine pH 6.0 Ur Specific [place] 1.015 Urine Protein 300 (3+) H Urine Glucose (UA) >=1000 H Urine Ketones Negative Urine Blood Small (1+) H Urine Nitrite Negative Ur Leukocyte Esterase Negative Urine RBC 3-5 H Urine WBC 0-5 Ur Squamous Epith Cells 0-2 Urine Bacteria None Seen Hyaline Casts 0-2 B-Hydroxybutyrate 04/18/23 04/18/23 04/18/23 22:49 23:21 23:43 WBC RBC Hgb Hct MCV MCH MCHC RDW Plt Count MPV Immature Gran % (Auto) Neut % (Auto) Lymph % (Auto) [place] % (Auto) Eos % (Auto) Baso % (Auto) Lymph # (Auto) [place] # (Auto) Eos # (Auto) Baso # (Auto) Abs Immat Gran (auto) Absolute Neuts (auto) Absolute Nucleated RBC Nucleated RBC % (auto) Smear Tech's Comments ESR VBG pH VBG pCO2 VBG pO2 VBG HCO3 VBG O2 Saturation VBG Base Excess Sodium 124 L Potassium 3.9 Chloride 95 L Carbon Dioxide 20 L Anion Gap 13 BUN 34 H Creatinine 2.87 H Estim Creat Clear Calc 38.0 Estimated GFR 24 POC Glucose 326 H 308 H Random Glucose 318 H Estimat Average Glucose Hemoglobin A1c % Lactic Acid Calcium 8.9 Phosphorus Magnesium Total Bilirubin Direct Bilirubin AST ALT Alkaline Phosphatase C-Reactive Protein Total Protein Albumin Urine Color Urine Appearance Urine pH Ur Specific [place] Urine Protein Urine Glucose (UA) Urine Ketones Urine Blood Urine Nitrite Ur Leukocyte Esterase Urine RBC Urine WBC Ur Squamous Epith Cells Urine Bacteria Hyaline Casts B-Hydroxybutyrate 04/19/23 04/19/23 04/19/23 05:51 05:51 05:51 WBC 34.4 H* RBC 3.61 L Hgb 10.0 L Hct 30.4 L MCV 84.2 MCH 27.7 MCHC 32.9 RDW 12.3 Plt Count 213 MPV 11.8 Immature Gran % (Auto) Neut % (Auto) Lymph % (Auto) [place] % (Auto) Eos % (Auto) Baso % (Auto) Lymph # (Auto) [place] # (Auto) Eos # (Auto) Baso # (Auto) Abs Immat Gran (auto) Absolute Neuts (auto) Absolute Nucleated RBC 0.000 Nucleated RBC % (auto) 0.0 Smear Tech's Comments ESR 97 H VBG pH VBG pCO2 VBG pO2 VBG HCO3 VBG O2 Saturation VBG Base Excess Sodium 127 L Potassium 4.4 Chloride 98 Carbon Dioxide 25 Anion Gap 8 L BUN 36 H Creatinine 2.75 H Estim Creat Clear Calc 39.7 Estimated GFR 25 POC Glucose Random Glucose 313 H Estimat Average Glucose Hemoglobin A1c % Lactic Acid Calcium 9.1 Phosphorus Magnesium Total Bilirubin Direct Bilirubin AST ALT Alkaline Phosphatase C-Reactive Protein Total Protein Albumin Urine Color Urine Appearance Urine pH Ur Specific [place] Urine Protein Urine Glucose (UA) Urine Ketones Urine Blood Urine Nitrite Ur Leukocyte Esterase Urine RBC Urine WBC Ur Squamous Epith Cells Urine Bacteria Hyaline Casts B-Hydroxybutyrate 04/19/23 04/19/23 07:37 11:09 WBC RBC Hgb Hct MCV MCH MCHC RDW Plt Count MPV Immature Gran % (Auto) Neut % (Auto) Lymph % (Auto) [place] % (Auto) Eos % (Auto) Baso % (Auto) Lymph # (Auto) [place] # (Auto) Eos # (Auto) Baso # (Auto) Abs Immat Gran (auto) Absolute Neuts (auto) Absolute Nucleated RBC Nucleated RBC % (auto) Smear Tech's Comments ESR VBG pH VBG pCO2 VBG pO2 VBG HCO3 VBG O2 Saturation VBG Base Excess Sodium Potassium Chloride Carbon Dioxide Anion Gap BUN Creatinine Estim Creat Clear Calc Estimated GFR POC Glucose 242 H 311 H Random Glucose Estimat Average Glucose Hemoglobin A1c % Lactic Acid Calcium Phosphorus Magnesium Total Bilirubin Direct Bilirubin AST ALT Alkaline Phosphatase C-Reactive Protein Total Protein Albumin Urine Color Urine Appearance Urine pH Ur Specific [place] Urine Protein Urine Glucose (UA) Urine Ketones Urine Blood Urine Nitrite Ur Leukocyte Esterase Urine RBC Urine WBC Ur Squamous Epith Cells Urine Bacteria Hyaline Casts B-Hydroxybutyrate Airway Heart: RRR Lungs: CTA Assessment and Plan Assessment Anesthesia Assessment: Anesthesia Plan Discussed, Smoking Cess. Discussed and Chart Reviewed Final Anesthetic Review Family History of Problems with Anesthesia: No History of Problems with Anesthesia: No NPO: Yes ASA Class: III and Emergency Final Preanesthetic Review: Meds/Allgs Chart Reviewed, Consent Obtained/Reviewed and Anes Risks/Benef Reviewed Patient Risk: Intermediate Procedure Risk: Low Anesthetic Plan Anesthetic Plan: GA
--- NOTE | 2023-04-19 14:57 | P.PNIM_ITS ---
Subjective Subjective Date of Service: 04/19/23 Interval History: seen and examined this morning follow up for right foot gangrenous foot infection reports right foot pain denies fever or chills Review of Systems Review of Systems: Yes all other systems are reviewed and are negative Constitutional Constitutional: Denies chills and Denies fever(s) Cardiovascular Cardiovascular: Denies chest pain, Denies palpitations and Denies dyspnea Respiratory Respiratory: Denies cough and Denies dyspnea Gastrointestinal Gastrointestinal: Denies abdominal pain, Denies nausea and Denies vomiting Endocrine Endocrine: Denies palpitations Physical Exam Vital Signs: Vital Signs: Last Vital Signs Temp 99.5 F 04/19/23 14:43 Pulse 100 04/19/23 14:43 Resp 16 04/19/23 14:43 BP 113/58 L 04/19/23 14:43 Pulse Ox 94 04/19/23 14:43 O2 Del Method Room Air 04/19/23 14:43 BMI result Body Mass Index 30.1 Const: General: cooperative, alert and awake Nutritional Appearance: average body habitus Orientation/consciousness: patient oriented x3 Resp: Effort & Inspection: normal respiratory effort, able to speak in complete sentences, no respiratory distress and no use of accessory muscles Cardio: Rate: regular rate Heart sounds: S1 normal heart sound present and S2 normal heart sound present GI: Inspection: No distended Palpation (GI): not soft and nontender Skin: Other: right foot warm, erythematous, tender to touch Neuro: General: patient oriented x3, moves all extremities and CN's II-XI intact bilaterally Objective Data Active Medications Acetaminophen (Acetaminophen 325 Mg Tablet) 650 mg PO Q6H PRN PRN Reason: Pain, Mild (Pain Scale 1-3) Last Admin: 04/19/23 09:29 Dose: 650 mg Documented By: KAYLA Atorvastatin Calcium (Atorvastatin Calcium 40 Mg Tablet) 40 mg PO BEDTIME LYSSA Last Admin: 04/18/23 22:58 Dose: 40 mg Documented By: HU-HANDM Dextrose (Dextrose 50 % 25 Gm/50 Ml Syringe) 25 gm IVPUSH Q15M PRN; Protocol PRN Reason: per Hypoglycemia Standing Ord. Docusate Sodium (Docusate Sodium 100 Mg Capsule) 100 mg PO DAILY PRN PRN Reason: Constipation Fentanyl (Fentanyl Citrate/Pf 100 Mcg/2 Ml Vial) 25 mcg IVPUSH Q5M PRN; Protocol PRN Reason: Pain, Moderate(Pain Scale 4-6) Glucose (Glucose Gel 15 Gm Gel..Gram.) 15 gm PO Q15M PRN; Protocol PRN Reason: per Hypoglycemia Standing Ord. Heparin Sodium (Porcine) (Heparin Sodium,Porcine 5,000 Unit/Ml Vial) 5,000 unit SUBCUT Q8H [facility] Last Admin: 04/19/23 14:09 Dose: Not Given Documented By: SHIRLEY Non-Admin Reason: Off Unit: Surgery Cefepime HCl 2 gm/ Sodium (Chloride) 50 mls @ 100 mls/hr IV Q24H [facility] Last Infusion: 04/19/23 02:08 Dose: 0 mls/hr Documented By: DANIELLE Vancomycin HCl 500 mg/ Sodium (Chloride) 110 mls @ 110 mls/hr IV Q12H [facility] Last Infusion: 04/19/23 09:33 Dose: 0 mls/hr Documented By: KAYLA Acetaminophen (Ofirmev) 1,000 mg in 100 mls @ 400 mls/hr IV ONCE ONE Stop: 04/19/23 15:04 Insulin Human Lispro (Insulin Lispro 100 Unit/Ml 3 Ml Vial) 0 unit SUBCUT QIDACHS [facility]; Protocol Last Admin: 04/19/23 13:24 Dose: 8 unit Documented By: KAYLA Lisinopril (Lisinopril 20 Mg Tablet) 20 mg PO DAILY [facility]; Protocol Last Admin: 04/19/23 08:08 Dose: 20 mg Documented By: KAYLA Melatonin (Melatonin 3 Mg Tablet) 6 mg PO BEDTIME PRN PRN Reason: insomnia Multivitamins/Vitamin C (Multivitamin Tablet) 1 tab PO DAILY [facility] Last Admin: 04/19/23 08:07 Dose: 1 tab Documented By: KAYLA Omeprazole (Omeprazole 20 Mg Capsule.Dr) 20 mg PO DAILY@0630 [facility] Last Admin: 04/19/23 05:47 Dose: 20 mg Documented By: DANIELLE Ondansetron HCl (Ondansetron Hcl 4 Mg/2 Ml Vial) 4 mg IVPUSH Q8H PRN PRN Reason: Nausea and Vomiting Ondansetron HCl (Ondansetron Hcl 4 Mg/2 Ml Vial) 4 mg IVPUSH ONCE PRN PRN Reason: Nausea and Vomiting Pharmacy Consult (Consult Rx Perform Med Rec) 1 each MISCELLANE ONCE PRN PRN Reason: Consult order Pharmacy Consult (Consult Rx Vancomycin Dosing) 1 each MISCELLANE DAILY PRN PRN Reason: Consult order Sodium Chloride (0.9 % Sodium Chloride Flush 3 Ml Syringe) [facility] Last Admin: 04/19/23 09:29 Dose: 3 ml Documented By: KAYLA Labs 04/19/23 05:51 04/19/23 05:51 Labs: Laboratory Results - last 24 hr 04/18/23 04/18/23 04/18/23 18:24 18:24 18:24 MCV 83.2 MCH 27.3 MCHC 32.8 RDW 12.3 Plt Count 265 MPV 12.2 Immature Gran % (Auto) 2.1 H Neut % (Auto) 90.1 H Lymph % (Auto) 2.8 L [place] % (Auto) 4.7 Eos % (Auto) 0.1 Baso % (Auto) 0.2 Lymph # (Auto) 1.0 L [place] # (Auto) 1.7 H Eos # (Auto) 0.1 Baso # (Auto) 0.1 Abs Immat Gran (auto) 0.73 H Absolute Neuts (auto) 31.7 H Absolute Nucleated RBC 0.000 Nucleated RBC % (auto) 0.0 Smear Tech's Comments VERIFIED ESR VBG pH VBG pCO2 VBG pO2 VBG HCO3 VBG O2 Saturation VBG Base Excess Anion Gap 16 Estim Creat Clear Calc 38.8 Estimated GFR 25 POC Glucose Random Glucose 529 H* Estimat Average Glucose Hemoglobin A1c % Lactic Acid 1.6 Calcium 8.8 D Phosphorus 2.7 Magnesium 2.0 Total Bilirubin 0.3 Direct Bilirubin 0.2 AST 25 ALT 11 Alkaline Phosphatase 175 H C-Reactive Protein 27.75 H Total Protein 7.5 Albumin 2.3 L Urine Color Urine Appearance Urine pH Ur Specific [place] Urine Protein Urine Glucose (UA) Urine Ketones Urine Blood Urine Nitrite Ur Leukocyte Esterase Urine RBC Urine WBC Ur Squamous Epith Cells Urine Bacteria Hyaline Casts B-Hydroxybutyrate 0.04 H 04/18/23 04/18/23 04/18/23 18:24 20:44 21:11 MCV MCH MCHC RDW Plt Count MPV Immature Gran % (Auto) Neut % (Auto) Lymph % (Auto) [place] % (Auto) Eos % (Auto) Baso % (Auto) Lymph # (Auto) [place] # (Auto) Eos # (Auto) Baso # (Auto) Abs Immat Gran (auto) Absolute Neuts (auto) Absolute Nucleated RBC Nucleated RBC % (auto) Smear Tech's Comments ESR VBG pH 7.40 VBG pCO2 45 VBG pO2 33 VBG HCO3 29 H VBG O2 Saturation 55.0 VBG Base Excess 3.8 Anion Gap Estim Creat Clear Calc Estimated GFR POC Glucose Random Glucose Estimat Average Glucose 260 Hemoglobin A1c % 10.7 Lactic Acid Calcium Phosphorus Magnesium Total Bilirubin Direct Bilirubin AST ALT Alkaline Phosphatase C-Reactive Protein Total Protein Albumin Urine Color Yellow Urine Appearance Clear Urine pH 6.0 Ur Specific [place] 1.015 Urine Protein 300 (3+) H Urine Glucose (UA) >=1000 H Urine Ketones Negative Urine Blood Small (1+) H Urine Nitrite Negative Ur Leukocyte Esterase Negative Urine RBC 3-5 H Urine WBC 0-5 Ur Squamous Epith Cells 0-2 Urine Bacteria None Seen Hyaline Casts 0-2 B-Hydroxybutyrate 04/18/23 04/18/23 04/18/23 22:49 23:21 23:43 MCV MCH MCHC RDW Plt Count MPV Immature Gran % (Auto) Neut % (Auto) Lymph % (Auto) [place] % (Auto) Eos % (Auto) Baso % (Auto) Lymph # (Auto) [place] # (Auto) Eos # (Auto) Baso # (Auto) Abs Immat Gran (auto) Absolute Neuts (auto) Absolute Nucleated RBC Nucleated RBC % (auto) Smear Tech's Comments ESR VBG pH VBG pCO2 VBG pO2 VBG HCO3 VBG O2 Saturation VBG Base Excess Anion Gap 13 Estim Creat Clear Calc 38.0 Estimated GFR 24 POC Glucose 326 H 308 H Random Glucose 318 H Estimat Average Glucose Hemoglobin A1c % Lactic Acid Calcium 8.9 Phosphorus Magnesium Total Bilirubin Direct Bilirubin AST ALT Alkaline Phosphatase C-Reactive Protein Total Protein Albumin Urine Color Urine Appearance Urine pH Ur Specific [place] Urine Protein Urine Glucose (UA) Urine Ketones Urine Blood Urine Nitrite Ur Leukocyte Esterase Urine RBC Urine WBC Ur Squamous Epith Cells Urine Bacteria Hyaline Casts B-Hydroxybutyrate 04/19/23 04/19/23 04/19/23 05:51 05:51 05:51 MCV 84.2 MCH 27.7 MCHC 32.9 RDW 12.3 Plt Count 213 MPV 11.8 Immature Gran % (Auto) Neut % (Auto) Lymph % (Auto) [place] % (Auto) Eos % (Auto) Baso % (Auto) Lymph # (Auto) [place] # (Auto) Eos # (Auto) Baso # (Auto) Abs Immat Gran (auto) Absolute Neuts (auto) Absolute Nucleated RBC 0.000 Nucleated RBC % (auto) 0.0 Smear Tech's Comments ESR 97 H VBG pH VBG pCO2 VBG pO2 VBG HCO3 VBG O2 Saturation VBG Base Excess Anion Gap 8 L Estim Creat Clear Calc 39.7 Estimated GFR 25 POC Glucose Random Glucose 313 H Estimat Average Glucose Hemoglobin A1c % Lactic Acid Calcium 9.1 Phosphorus Magnesium Total Bilirubin Direct Bilirubin AST ALT Alkaline Phosphatase C-Reactive Protein Total Protein Albumin Urine Color Urine Appearance Urine pH Ur Specific [place] Urine Protein Urine Glucose (UA) Urine Ketones Urine Blood Urine Nitrite Ur Leukocyte Esterase Urine RBC Urine WBC Ur Squamous Epith Cells Urine Bacteria Hyaline Casts B-Hydroxybutyrate 04/19/23 04/19/23 07:37 11:09 MCV MCH MCHC RDW Plt Count MPV Immature Gran % (Auto) Neut % (Auto) Lymph % (Auto) [place] % (Auto) Eos % (Auto) Baso % (Auto) Lymph # (Auto) [place] # (Auto) Eos # (Auto) Baso # (Auto) Abs Immat Gran (auto) Absolute Neuts (auto) Absolute Nucleated RBC Nucleated RBC % (auto) Smear Tech's Comments ESR VBG pH VBG pCO2 VBG pO2 VBG HCO3 VBG O2 Saturation VBG Base Excess Anion Gap Estim Creat Clear Calc Estimated GFR POC Glucose 242 H 311 H Random Glucose Estimat Average Glucose Hemoglobin A1c % Lactic Acid Calcium Phosphorus Magnesium Total Bilirubin Direct Bilirubin AST ALT Alkaline Phosphatase C-Reactive Protein Total Protein Albumin Urine Color Urine Appearance Urine pH Ur Specific [place] Urine Protein Urine Glucose (UA) Urine Ketones Urine Blood Urine Nitrite Ur Leukocyte Esterase Urine RBC Urine WBC Ur Squamous Epith Cells Urine Bacteria Hyaline Casts B-Hydroxybutyrate Assessment and Plan (1) Diabetic wet gangrene of the foot: Status: Acute (2) Osteomyelitis: Status: Acute Plan Pt is a 42-year-old male with a PMH significant for?HTN, HLD, non insulin-dependent diabetes type 2, and CKD stage III who presents to the ED with?right foot pain, swelling, and redness, and discoloration of his 2nd toe Sepsis secondary to gangrenous right toe/foot wound related to diabetes Met criteria with WBC of 35.2 and tacycardia. CRP of 27.75, ESR 97. Lactic acid wnl continue IV Vanco and cefepime Seen by general surgery - plan for amputation today pain control blood culture pending Left foot osteo xray concerning for osteomyelitis of left foot - first distal phalanx continue abx as above [id number] diabetes type 2, with hyperglycemia glucose of 529 on admission on glipizide at baseline, will hold HbA1c 10.7 continue SSI to determine 24 hour needs, will need long acting insulin Diabetic diet Hyponatremia primarily related to pseudohyponatremia from hyperglycemia Follow BMP CKD stage III Patient's creatinine 2.81, near baseline; corrected around 130 Follow BMP normoycytic anemia H/H stable, above transfusion threshold follow CBC HLD Continue statin HTN bp solft Hold lisinopril Full Code Attending:?Dr. Gates DVT Prophylaxis: Lovenox patient requires ongoing inpatient hospitalization for management of gangrenous foot infection including acute surgical intervention as well as IV antibiotics Time Spent With Patient Time: Total time managing care of this patient today ____ minutes. Quality Stroke Does the patient have a stroke diagnosis?: No VTE Prior VTE?: No VTE Risk Level:: Medical - moderate - high VTE Device Contraindication: Treatment Not Indicated VTE Drug Contraindication: N/A - Med Ordered
[2023-04-19 15:28] LABS: Glucose, Whole Blood 241 mg/dL (60-115)
[2023-04-19 16:16] LABS: Glucose, Whole Blood 198 mg/dL (60-115)
[2023-04-19] MEDS: oxyCODONE HCl Immed Release 5 MG TABLET PO ×2 (17:10→21:11)
[2023-04-19 19:22] LABS: Vancomycin Random 12.3 mcg/mL (15-20)
[2023-04-19 20:30] LABS: Glucose, Whole Blood 241 mg/dL (60-115)
[2023-04-19] MEDS: Atorvastatin Calcium 40 MG TABLET PO (20:58)
--- NOTE | 2023-04-20 00:05 | PC.NURSE ---
Overnight stay of pt's mother approved by nursing tool and die supervisor
[2023-04-20] MEDS: oxyCODONE HCl Immed Release 5 MG TABLET PO ×3 (03:22→18:18)
[2023-04-20] MEDS: Omeprazole 20 MG CAPSULE.DR PO (05:52)
[2023-04-20] MEDS: Heparin Sodium,Porcine 5,000 UNIT/ML VIAL 5000 UNIT SUBCUT ×3 (05:52→21:00)
[2023-04-20 07:08] LABS: Basophils Absolute Auto 0.1 X10*3/uL (0.0-0.2); Basophils Percent Auto 0.2 % (0-2); Eosinophils Absolute Auto 0.4 X10*3/uL (0.0-0.4); Eosinophils Percent Auto 1.1 % (0-4); Hematocrit 28.6 % (42.0-52.0); Hemoglobin 9.3 g/dl (14.0-18.0); Imm Gran Abs Auto 1.22 X10*3/uL (0.00-0.03); Imm Gran Pct Auto 3.9 % (0.0-0.4); Lymphocytes Absolute Auto 1.9 X10*3/uL (1.2-4.9); Lymphocytes Percent Auto 6.1 % (20-40); MANUAL DIFF FLAG SCAN; Mean Corpuscular HGB Conc 32.5 g/dl (31.0-36.0); Mean Corpuscular Hemoglobin 27.3 pg (27.0-33.0); Mean Corpuscular Volume 83.9 fL (80.0-98.0); Monocytes Percent Auto 6.4 % (2-11); Neutrophils Absolute Auto 25.7 x10*3/uL (2.0-8.3); Neutrophils Percent Auto 82.3 % (45-73); Platelet Count 188 X10*3/uL (160-400); Red Blood Count 3.41 X10*6/uL (4.60-5.80); Red Cell Distribution Width 12.5 % (11.0-16.0); SCAN SMEAR FLAG 1
[2023-04-20 07:21] LABS: White Blood Count 31.3 X10*3/uL (4.8-10.8)
[2023-04-20 07:26] VITALS: BP 126/65; PULSE 100; RESP 18; TEMP 37.8; O2SAT 97
[2023-04-20 07:33] LABS: Glucose, Whole Blood 337 mg/dL (60-115)
[2023-04-20 07:34] LABS: SLIDE REVIEW VERIFIED
[2023-04-20 07:46] LABS: Anion Gap 10 (12-20); Blood Urea Nitrogen 30 mg/dL (9-16); Calcium 8.4 mg/dL (8.4-10.2); Carbon Dioxide 20 mmol/L (22-29); Chloride 101 mmol/L (96-108); Creatinine Clr Calc Pharmacy 48.3; Estimated Glomerular Filt Rate 32; Glucose Random 310 mg/dL (60-115); Potassium 3.3 mmol/L (3.3-5.1); Sodium 128 mmol/L (135-145)
[2023-04-20] MEDS: vancomycin HCL 500 MG in 0.9 % Sodium Chloride 100 ML 110 MG IV (08:14)
[2023-04-20] MEDS: Multivitamin TABLET 1 TAB PO (08:14)
[2023-04-20] MEDS: Acetaminophen 325 MG TABLET 650 MG PO ×2 (08:14→14:02)
[2023-04-20] MEDS: Insulin Glargine,Hum.rec.anlog 100 UNIT/ML 10 ML VIAL 10 UNIT SUBCUT (08:15)
[2023-04-20] MEDS: 0.9 % Sodium Chloride Flush 3 ML SYRINGE IVFLUSH ×3 (08:16→19:41)
[2023-04-20] MEDS: Insulin Lispro 100 UNIT/ML 3 ML VIAL SUBCUT ×3 (08:16→21:00)
[2023-04-20 10:35] VITALS: TEMP 37.2
[2023-04-20 11:09] LABS: Glucose, Whole Blood 132 mg/dL (60-115)
--- NOTE | 2023-04-20 12:55 | P.PNGS_ITS ---
Subjective Subjective Date of Service: 04/20/23 Interval history: feeling better, less pain Physical Exam Vital Signs: Vital Signs: Last Vital Signs Temp 98.9 F 04/20/23 10:35 Pulse 100 04/20/23 07:26 Resp 18 04/20/23 07:26 BP 126/65 04/20/23 07:26 Pulse Ox 97 04/20/23 07:26 O2 Del Method Room Air 04/20/23 07:26 BMI result Body Mass Index 30.1 Skin: Other: bone area looks good - areas that were pinker in OR yesterday with more necrotic greyish tissue still today. no purulent drainage rest of foot looks ok plantar area much less tender. Objective Data Active Medications Acetaminophen (Acetaminophen 325 Mg Tablet) 650 mg PO Q6H PRN PRN Reason: Pain, Mild (Pain Scale 1-3) Last Admin: 04/20/23 08:14 Dose: 650 mg Documented By: AMINATA Atorvastatin Calcium (Atorvastatin Calcium 40 Mg Tablet) 40 mg PO BEDTIME [facility] Last Admin: 04/19/23 20:58 Dose: 40 mg Documented By: ARTHUR Dextrose (Dextrose 50 % 25 Gm/50 Ml Syringe) 25 gm IVPUSH Q15M PRN; Protocol PRN Reason: per Hypoglycemia Standing Ord. Docusate Sodium (Docusate Sodium 100 Mg Capsule) 100 mg PO DAILY PRN PRN Reason: Constipation Fentanyl (Fentanyl Citrate/Pf 100 Mcg/2 Ml Vial) 25 mcg IVPUSH Q5M PRN; Protocol PRN Reason: Pain, Moderate(Pain Scale 4-6) Glucose (Glucose Gel 15 Gm Gel..Gram.) 15 gm PO Q15M PRN; Protocol PRN Reason: per Hypoglycemia Standing Ord. Heparin Sodium (Porcine) (Heparin Sodium,Porcine 5,000 Unit/Ml Vial) 5,000 unit SUBCUT Q8H [facility] Last Admin: 04/20/23 12:54 Dose: 5,000 unit Documented By: KAI Cefepime HCl 2 gm/ Sodium (Chloride) 50 mls @ 100 mls/hr IV Q24H [facility] Last Infusion: 04/19/23 23:43 Dose: 0 mls/hr Documented By: ARTHUR Vancomycin HCl 500 mg/ Sodium (Chloride) 110 mls @ 110 mls/hr IV Q12H [facility] Last Infusion: 04/20/23 09:25 Dose: 0 mls/hr Documented By: AMINATA Insulin Glargine (Insulin Glargine,Hum.Rec.Anlog 100 Unit/Ml 10 Ml Vial) 10 unit SUBCUT DAILY [facility] Last Admin: 04/20/23 08:15 Dose: 10 unit Documented By: AMINATA Insulin Human Lispro (Insulin Lispro 100 Unit/Ml 3 Ml Vial) 0 unit SUBCUT QIDACHS [facility]; Protocol Last Admin: 04/20/23 11:41 Dose: Not Given Documented By: AMINATA Non-Admin Reason: No Insulin Coverage Lisinopril (Lisinopril 20 Mg Tablet) 20 mg PO DAILY [facility]; Protocol Last Admin: 04/19/23 08:08 Dose: 20 mg Documented By: KAYLA Melatonin (Melatonin 3 Mg Tablet) 6 mg PO BEDTIME PRN PRN Reason: insomnia Multivitamins/Vitamin C (Multivitamin Tablet) 1 tab PO DAILY [facility] Last Admin: 04/20/23 08:14 Dose: 1 tab Documented By: AMINATA Omeprazole (Omeprazole 20 Mg Capsule.Dr) 20 mg PO DAILY@0630 [facility] Last Admin: 04/20/23 05:52 Dose: 20 mg Documented By: ARTHUR Ondansetron HCl (Ondansetron Hcl 4 Mg/2 Ml Vial) 4 mg IVPUSH Q8H PRN PRN Reason: Nausea and Vomiting Ondansetron HCl (Ondansetron Hcl 4 Mg/2 Ml Vial) 4 mg IVPUSH ONCE PRN PRN Reason: Nausea and Vomiting Oxycodone HCl (Oxycodone Hcl Immed Release 5 Mg Tablet) 5 mg PO Q4H PRN PRN Reason: Pain, Moderate(Pain Scale 4-6) Last Admin: 04/20/23 08:15 Dose: 5 mg Documented By: AMINATA Pharmacy Consult (Consult Rx Perform Med Rec) 1 each MISCELLANE ONCE PRN PRN Reason: Consult order Pharmacy Consult (Consult Rx Vancomycin Dosing) 1 each MISCELLANE DAILY PRN PRN Reason: Consult order Sodium Chloride (0.9 % Sodium Chloride Flush 3 Ml Syringe) 3 ml IVFLUSH QSHIFT [facility] Last Admin: 04/20/23 08:16 Dose: 3 ml Documented By: AMINATA Labs 04/20/23 06:52 04/20/23 06:52 Labs: Laboratory Results - last 24 hr 04/19/23 04/19/23 04/19/23 15:24 16:07 18:41 MCV MCH MCHC RDW Plt Count MPV Immature Gran % (Auto) Neut % (Auto) Lymph % (Auto) [place] % (Auto) Eos % (Auto) Baso % (Auto) Lymph # (Auto) [place] # (Auto) Eos # (Auto) Baso # (Auto) Abs Immat Gran (auto) Absolute Neuts (auto) Absolute Nucleated RBC Nucleated RBC % (auto) Smear Tech's Comments Anion Gap Estim Creat Clear Calc Estimated GFR POC Glucose 241 H 198 H Random Glucose Calcium Random Vancomycin 12.3 L 04/19/23 04/20/23 04/20/23 20:16 06:52 06:52 MCV 83.9 MCH 27.3 MCHC 32.5 RDW 12.5 Plt Count 188 MPV 12.0 Immature Gran % (Auto) 3.9 H Neut % (Auto) 82.3 H Lymph % (Auto) 6.1 L [place] % (Auto) 6.4 Eos % (Auto) 1.1 Baso % (Auto) 0.2 Lymph # (Auto) 1.9 [place] # (Auto) 2.0 H Eos # (Auto) 0.4 Baso # (Auto) 0.1 Abs Immat Gran (auto) 1.22 H Absolute Neuts (auto) 25.7 H Absolute Nucleated RBC 0.000 Nucleated RBC % (auto) 0.0 Smear Tech's Comments VERIFIED Anion Gap 10 L Estim Creat Clear Calc 48.3 Estimated GFR 32 POC Glucose 241 H Random Glucose 310 H Calcium 8.4 D Random Vancomycin 04/20/23 04/20/23 07:28 11:00 MCV MCH MCHC RDW Plt Count MPV Immature Gran % (Auto) Neut % (Auto) Lymph % (Auto) [place] % (Auto) Eos % (Auto) Baso % (Auto) Lymph # (Auto) [place] # (Auto) Eos # (Auto) Baso # (Auto) Abs Immat Gran (auto) Absolute Neuts (auto) Absolute Nucleated RBC Nucleated RBC % (auto) Smear Tech's Comments Anion Gap Estim Creat Clear Calc Estimated GFR POC Glucose 337 H 132 H Random Glucose Calcium Random Vancomycin Microbiology Microbiology Results: Microbiology 04/19/23 14:46 Gram Stain - Final Toe 04/18/23 18:24 Blood Culture - Preliminary Blood - Venous No growth after 24 hours. 04/18/23 18:24 Blood Culture - Preliminary Blood - Venous No growth after 24 hours. Procedures Date of Service Date of Service: 04/20/23 Progress Note: A&P Assessment and plan (1) Diabetic wet gangrene of the foot: Status: Acute Assessment and Plan: pt pod#1 sp toe amp and soft tissue debridement of gangrenous tissue - wound still not looking as good, afebrile, wbc still elevateded erythema improved - plan to cont with dressings today and reeval tomorrow . cont with iv antibx as per med team fu on or cultures. tight glucose control - its improved Time Spent With Patient Time: Total time managing care of this patient today ____ minutes. Quality Stroke Does the patient have a stroke diagnosis?: No VTE Prior VTE?: No VTE Risk Level:: Medical - moderate - high VTE Device Contraindication: Treatment Not Indicated VTE Drug Contraindication: N/A - Med Ordered
[2023-04-20 13:28] VITALS: BP 123/65; PULSE 87; RESP 16; TEMP 36.9; O2SAT 98
[2023-04-20 14:01] LABS: Glucose, Whole Blood 182 mg/dL (60-115)
--- NOTE | 2023-04-20 14:14 | PC.NURSE ---
MD Crook at bedside today at approximately 12:00 for dressing change. Initial dressing change completed by MD, per MD [facility] to follow up with dressing changes BID.
--- NOTE | 2023-04-20 14:39 | P.PNIM_ITS ---
Subjective Subjective Date of Service: 04/20/23 Interval History: seen and examined this morning Follow-up for right foot infection status post toe amputation no overnight events pain under better control today low grade fever, denies chills Review of Systems Review of Systems: Yes all other systems are reviewed and are negative Constitutional Constitutional: Denies chills and Denies fever(s) Cardiovascular Cardiovascular: Denies chest pain, Denies palpitations and Denies dyspnea Respiratory Respiratory: Denies cough and Denies dyspnea Gastrointestinal Gastrointestinal: Denies abdominal pain Endocrine Endocrine: Denies palpitations Physical Exam Vital Signs: Vital Signs: Last Vital Signs Temp 98.4 F 04/20/23 13:28 Pulse 87 04/20/23 13:28 Resp 16 04/20/23 13:28 BP 123/65 04/20/23 13:28 Pulse Ox 98 04/20/23 13:28 O2 Del Method Room Air 04/20/23 13:28 BMI result Body Mass Index 30.1 Const: General: cooperative, alert and awake Nutritional Appearance: average body habitus Orientation/consciousness: patient oriented x3 Resp: Effort & Inspection: normal respiratory effort, able to speak in complete sentences, no respiratory distress and no use of accessory muscles Cardio: Rate: regular rate Heart sounds: S1 normal heart sound present and S2 normal heart sound present GI: Inspection: No distended Palpation (GI): not soft and nontender Skin: Other: right foot clean dry dressing left great toe dry thickened skin great toe,heels Neuro: General: patient oriented x3, moves all extremities and CN's II-XI intact bilaterally Extrem: General: Yes no pedal edema Objective Data Active Medications Acetaminophen (Acetaminophen 325 Mg Tablet) 650 mg PO Q6H PRN PRN Reason: Pain, Mild (Pain Scale 1-3) Last Admin: 04/20/23 14:02 Dose: 650 mg Documented By: AMINATA Atorvastatin Calcium (Atorvastatin Calcium 40 Mg Tablet) 40 mg PO BEDTIME [facility] Last Admin: 04/19/23 20:58 Dose: 40 mg Documented By: ARTHUR Dextrose (Dextrose 50 % 25 Gm/50 Ml Syringe) 25 gm IVPUSH Q15M PRN; Protocol PRN Reason: per Hypoglycemia Standing Ord. Docusate Sodium (Docusate Sodium 100 Mg Capsule) 100 mg PO DAILY PRN PRN Reason: Constipation Fentanyl (Fentanyl Citrate/Pf 100 Mcg/2 Ml Vial) 25 mcg IVPUSH Q5M PRN; Protocol PRN Reason: Pain, Moderate(Pain Scale 4-6) Glucose (Glucose Gel 15 Gm Gel..Gram.) 15 gm PO Q15M PRN; Protocol PRN Reason: per Hypoglycemia Standing Ord. Heparin Sodium (Porcine) (Heparin Sodium,Porcine 5,000 Unit/Ml Vial) 5,000 unit SUBCUT Q8H [facility] Last Admin: 04/20/23 12:54 Dose: 5,000 unit Documented By: KAI Cefepime HCl 2 gm/ Sodium (Chloride) 50 mls @ 100 mls/hr IV Q24H [facility] Last Infusion: 04/19/23 23:43 Dose: 0 mls/hr Documented By: ARTHUR Vancomycin HCl 500 mg/ Sodium (Chloride) 110 mls @ 110 mls/hr IV Q12H [facility] Last Infusion: 04/20/23 09:25 Dose: 0 mls/hr Documented By: AMINATA Insulin Glargine (Insulin Glargine,Hum.Rec.Anlog 100 Unit/Ml 10 Ml Vial) 10 unit SUBCUT DAILY [facility] Last Admin: 04/20/23 08:15 Dose: 10 unit Documented By: AMINATA Insulin Human Lispro (Insulin Lispro 100 Unit/Ml 3 Ml Vial) 0 unit SUBCUT QIDACHS [facility]; Protocol Last Admin: 04/20/23 11:41 Dose: Not Given Documented By: AMINATA Non-Admin Reason: No Insulin Coverage Lisinopril (Lisinopril 20 Mg Tablet) 20 mg PO DAILY [facility]; Protocol Last Admin: 04/19/23 08:08 Dose: 20 mg Documented By: KAYLA Melatonin (Melatonin 3 Mg Tablet) 6 mg PO BEDTIME PRN PRN Reason: insomnia Multivitamins/Vitamin C (Multivitamin Tablet) 1 tab PO DAILY [facility] Last Admin: 04/20/23 08:14 Dose: 1 tab Documented By: AMINATA Omeprazole (Omeprazole 20 Mg Capsule.) 20 mg PO DAILY@0630 [facility] Last Admin: 04/20/23 05:52 Dose: 20 mg Documented By: ARTHUR Ondansetron HCl (Ondansetron Hcl 4 Mg/2 Ml Vial) 4 mg IVPUSH Q8H PRN PRN Reason: Nausea and Vomiting Ondansetron HCl (Ondansetron Hcl 4 Mg/2 Ml Vial) 4 mg IVPUSH ONCE PRN PRN Reason: Nausea and Vomiting Oxycodone HCl (Oxycodone Hcl Immed Release 5 Mg Tablet) 5 mg PO Q4H PRN PRN Reason: Pain, Moderate(Pain Scale 4-6) Last Admin: 04/20/23 08:15 Dose: 5 mg Documented By: AMINATA Pharmacy Consult (Consult Rx Perform Med Rec) 1 each MISCELLANE ONCE PRN PRN Reason: Consult order Pharmacy Consult (Consult Rx Vancomycin Dosing) 1 each MISCELLANE DAILY PRN PRN Reason: Consult order Sodium Chloride (0.9 % Sodium Chloride Flush 3 Ml Syringe) 3 ml IVFLUSH QSHIFT [facility] Last Admin: 04/20/23 08:16 Dose: 3 ml Documented By: AMINATA Sodium Hypochlorite (Sodium Hypochlorite 0.25% 473 Ml Solution) 1 appl TOPICAL DAILY [facility] Last Admin: 04/20/23 14:13 Dose: Not Given Documented By: AMINATA Non-Admin Reason: MD medina first dressing by then RN Labs 04/20/23 06:52 04/20/23 06:52 Labs: Laboratory Results - last 24 hr 04/19/23 04/19/23 04/19/23 15:24 16:07 18:41 MCV MCH MCHC RDW Plt Count MPV Immature Gran % (Auto) Neut % (Auto) Lymph % (Auto) [place] % (Auto) Eos % (Auto) Baso % (Auto) Lymph # (Auto) [place] # (Auto) Eos # (Auto) Baso # (Auto) Abs Immat Gran (auto) Absolute Neuts (auto) Absolute Nucleated RBC Nucleated RBC % (auto) Smear Tech's Comments Anion Gap Estim Creat Clear Calc Estimated GFR POC Glucose 241 H 198 H Random Glucose Calcium Random Vancomycin 12.3 L 04/19/23 04/20/23 04/20/23 20:16 06:52 06:52 MCV 83.9 MCH 27.3 MCHC 32.5 RDW 12.5 Plt Count 188 MPV 12.0 Immature Gran % (Auto) 3.9 H Neut % (Auto) 82.3 H Lymph % (Auto) 6.1 L [place] % (Auto) 6.4 Eos % (Auto) 1.1 Baso % (Auto) 0.2 Lymph # (Auto) 1.9 [place] # (Auto) 2.0 H Eos # (Auto) 0.4 Baso # (Auto) 0.1 Abs Immat Gran (auto) 1.22 H Absolute Neuts (auto) 25.7 H Absolute Nucleated RBC 0.000 Nucleated RBC % (auto) 0.0 Smear Tech's Comments VERIFIED Anion Gap 10 L Estim Creat Clear Calc 48.3 Estimated GFR 32 POC Glucose 241 H Random Glucose 310 H Calcium 8.4 D Random Vancomycin 04/20/23 04/20/23 04/20/23 07:28 11:00 13:57 MCV MCH MCHC RDW Plt Count MPV Immature Gran % (Auto) Neut % (Auto) Lymph % (Auto) [place] % (Auto) Eos % (Auto) Baso % (Auto) Lymph # (Auto) [place] # (Auto) Eos # (Auto) Baso # (Auto) Abs Immat Gran (auto) Absolute Neuts (auto) Absolute Nucleated RBC Nucleated RBC % (auto) Smear Tech's Comments Anion Gap Estim Creat Clear Calc Estimated GFR POC Glucose 337 H 132 H 182 H Random Glucose Calcium Random Vancomycin Microbiology Microbiology Results: Microbiology 04/19/23 14:46 Gram Stain - Final Toe Routine Culture - Preliminary Strep agalactiae (Grp B) 04/18/23 18:24 Blood Culture - Preliminary Blood - Venous No growth after 24 hours. 04/18/23 18:24 Blood Culture - Preliminary Blood - Venous No growth after 24 hours. Assessment and Plan (1) Diabetic wet gangrene of the foot: Status: Acute (2) Hyperglycemia: Status: Acute (3) Osteomyelitis: Status: Acute (4) Sepsis: Status: Acute (5) Pseudohyponatremia: Status: Acute Plan Pt is a 42-year-old male with a PMH significant for?HTN, HLD, non insulin- dependent diabetes type 2, and CKD stage III who presents to the ED with?right foot pain, swelling, and redness, and discoloration of his 2nd toe Sepsis secondary to gangrenous right toe/foot wound related to diabetes Met criteria with WBC of 35.2 and tacycardia. CRP of 27.75, ESR 97. Lactic acid wnl s/p right second toe amputation 04/19 wound culture growing group b strep given persistent leukocytosis of 31k will continue IV Vanco and cefepime for now surgery following ID consult pending blood cultures negative to date continue local wound care per surgury rec Left foot osteo xray concerning for osteomyelitis of left foot - first distal phalanx continue abx as above ID consult pending [id number] diabetes type 2, with hyperglycemia glucose of 529 on admission on glipizide at baseline, will hold HbA1c 10.7 pt non-compliant with diabetic diet or blood sugar monitoring started on Lantus 10U, uptitrate prn POCs improving Diabetic diet Hyponatremia primarily related to pseudohyponatremia from hyperglycemia corrected 131 Follow BMP CKD stage III SCr down to 2.26 - at baseline Follow BMP normoycytic anemia likely related to chronic dz and acute inflammation slight drop in H&H likely secondary to surgery, still above transfusion threshold follow CBC HLD Continue statin HTN bp solft -Hold lisinopril Full Code Attending:?Dr. Alas DVT Prophylaxis:heparin patient requires ongoing inpatient hospitalization for management of gangrenous foot infection including acute surgical intervention as well as IV antibiotics Time Spent With Patient Time: Total time managing care of this patient today ____ minutes. Quality Stroke Does the patient have a stroke diagnosis?: No VTE Prior VTE?: No VTE Risk Level:: Medical - moderate - high VTE Device Contraindication: Treatment Not Indicated VTE Drug Contraindication: N/A - Med Ordered
[2023-04-20 15:24] VITALS: BP 118/57; PULSE 93; RESP 18; TEMP 37.3; O2SAT 99
[2023-04-20 15:59] LABS: Glucose, Whole Blood 15 mg/dL (60-115)
[2023-04-20 15:59] LABS: Glucose, Whole Blood 258 mg/dL (60-115)
[2023-04-20 16:06] LABS: Glucose, Whole Blood 256 mg/dL (60-115)
--- NOTE | 2023-04-20 17:03 | PC.NURSE ---
Note for Clarification At 15:51 pt blood glucose POC resulted as 15, at this time Pt A&Ox4 no sings and symptoms of hypoglycemia. LEDY Bermudez made aware immediately, and POC glucose rechecked at 15:53 resulted as 258. Lara requested one more POC glucose recheck within 15 minutes, at 1602 POC glucose recheck (with different glucometer) 256. Charge nurse made aware, POC glucometer tagged and taken out of circulation, lab personnel Kevin made aware.
[2023-04-20 18:44] LABS: Vancomycin Random 13.1 mcg/mL (15-20)
[2023-04-20] MEDS: vancomycin HCL 750 MG in 0.9 % Sodium Chloride 250 ML 265 MG IV (19:39)
[2023-04-20] MEDS: Atorvastatin Calcium 40 MG TABLET PO (20:24)
[2023-04-20 20:49] VITALS: BP 118/55; PULSE 78; RESP 18; TEMP 36.5; O2SAT 94
[2023-04-20 21:08] LABS: Glucose, Whole Blood 306 mg/dL (60-115)
[2023-04-20] MEDS: cefEPime HCl 2 GM in 0.9 % Sodium Chloride 50 ML IV (22:38)
[2023-04-21] VITALS: BP 129/60; PULSE 103; RESP 19; TEMP 37.6; O2SAT 103
[2023-04-21 00:02] VITALS: BP 129/60; PULSE 103; RESP 19; TEMP 37.6; O2SAT 99
[2023-04-21] MEDS: Omeprazole 20 MG CAPSULE.DR PO (06:24)
[2023-04-21] MEDS: Heparin Sodium,Porcine 5,000 UNIT/ML VIAL 5000 UNIT SUBCUT ×3 (06:24→22:18)
[2023-04-21 06:43] LABS: Basophils Absolute Auto 0.1 X10*3/uL (0.0-0.2); Basophils Percent Auto 0.3 % (0-2); Eosinophils Absolute Auto 0.4 X10*3/uL (0.0-0.4); Eosinophils Percent Auto 1.1 % (0-4); Hematocrit 30.2 % (42.0-52.0); Hemoglobin 9.9 g/dl (14.0-18.0); Imm Gran Abs Auto 1.35 X10*3/uL (0.00-0.03); Imm Gran Pct Auto 4.4 % (0.0-0.4); Lymphocytes Absolute Auto 2.5 X10*3/uL (1.2-4.9); Lymphocytes Percent Auto 8.1 % (20-40); MANUAL DIFF FLAG SCAN; Mean Corpuscular HGB Conc 32.8 g/dl (31.0-36.0); Mean Corpuscular Hemoglobin 27.7 pg (27.0-33.0); Mean Corpuscular Volume 84.4 fL (80.0-98.0); Monocytes Percent Auto 6.4 % (2-11); Neutrophils Absolute Auto 24.3 x10*3/uL (2.0-8.3); Neutrophils Percent Auto 79.7 % (45-73); PLT CLUMP 1; Red Blood Count 3.58 X10*6/uL (4.60-5.80); Red Cell Distribution Width 12.4 % (11.0-16.0); SCAN SMEAR FLAG 1
[2023-04-21 06:53] LABS: Anion Gap 12 (12-20); Blood Urea Nitrogen 24 mg/dL (9-16); Calcium 8.8 mg/dL (8.4-10.2); Carbon Dioxide 20 mmol/L (22-29); Chloride 103 mmol/L (96-108); Creatinine Clr Calc Pharmacy 55.4; Estimated Glomerular Filt Rate 37; Glucose Random 217 mg/dL (60-115); Potassium 3.2 mmol/L (3.3-5.1); Sodium 132 mmol/L (135-145)
[2023-04-21 07:38] VITALS: BP 138/63; PULSE 92; RESP 18; TEMP 36.7; O2SAT 100
[2023-04-21 07:46] LABS: Glucose, Whole Blood 197 mg/dL (60-115)
[2023-04-21] MEDS: vancomycin HCL 750 MG in 0.9 % Sodium Chloride 250 ML 265 MG IV ×2 (08:09→20:19)
[2023-04-21] MEDS: 0.9 % Sodium Chloride Flush 3 ML SYRINGE IVFLUSH ×3 (08:10→20:09)
[2023-04-21] MEDS: Multivitamin TABLET 1 TAB PO (08:10)
[2023-04-21 08:18] LABS: White Blood Count 30.5 X10*3/uL (4.8-10.8)
[2023-04-21 08:20] LABS: SLIDE REVIEW VERIFIED
[2023-04-21] MEDS: Insulin Lispro 100 UNIT/ML 3 ML VIAL SUBCUT ×2 (08:38→17:00)
--- NOTE | 2023-04-21 09:06 | PM.CNGS ---
History of Present Illness Consult details Consult date: 04/21/23 Reason for consult: other (pad) Narrative: Complex poorly controlled 42-year-old diabetic presented to the hospital with nonhealing ulcer of the right foot. 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 Was taken to the OR by General surgery. Evaluation was requested by the hospitalists group regarding peripheral vascular disease. Of note his last hemoglobin A1c is 10.7. 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 Now presents to us for vascular evaluation Review of Systems Review of Systems: Yes all other systems are reviewed and are negative Constitutional: Constitutional: Reports no additional constitutional complaints ENT: Reports Normal hearing present Cardiovascular: Cardiovascular: Denies chest pain, Denies chest pain at rest, Denies chest pain with activity and Denies pedal edema Respiratory: Respiratory: Denies cough Gastrointestinal: Gastrointestinal: Denies abdominal pain Musculoskeletal: Musculoskeletal: Denies abnormal gait, Denies muscle cramps and Denies radiating pain into limb Integumentary/Breasts: Skin/Breast: Denies skin ulcer and Denies wounds Neurologic: Reports Normal hearing present and Denies abnormal gait Psychiatric: Psychiatric: Reports no additional psychiatric complaints PMFSH Past Medical History Medical History Diabetes HTN (hypertension) Renal failure Sleep apnea Social History Social History Household Members: Family Housing: Apartment Do you presently have visiting nurse or other home services: No Alcohol intake: current Alcohol intake frequency: holidays/special occasions only Patient Tobacco Use Status: Former Tobacco user Smoked in Last 30 Days: Yes Use of substances other than those prescribed or required for medical reasons: No Currently Displaying Signs/Symptoms of Drug Intoxication Withdrawal: No Any prior treatment program specific to substance use: No Have you been hit, kicked, punched, or otherwise hurt by someone within the past year? If so, by whom?: No Is there a partner from a previous relationship who is making you feel unsafe now?: No Are you made to feel afraid or neglected: No Advance Directives: No Advance Directives Information Provided: No Do you have thoughts of harming others: None Do you have a plan to hurt others: No Plan Nutrition Risks: No Nutritional Risk service: No Meds Allergies Allergy/AdvReac Type Severity Reaction Status Date / Time No Known Allergies Allergy Verified 11/26/20 14:08 [No Known Allergies*] Active Medications: Current Medications Acetaminophen (Acetaminophen 325 Mg Tablet) 650 mg PO Q6H PRN PRN Reason: Pain, Mild (Pain Scale 1-3) Last Admin: 04/20/23 14:02 Dose: 650 mg Atorvastatin Calcium (Atorvastatin Calcium 40 Mg Tablet) 40 mg PO BEDTIME [facility] Last Admin: 04/20/23 20:24 Dose: 40 mg Dextrose (Dextrose 50 % 25 Gm/50 Ml Syringe) 25 gm IVPUSH Q15M PRN; Protocol PRN Reason: per Hypoglycemia Standing Ord. Docusate Sodium (Docusate Sodium 100 Mg Capsule) 100 mg PO DAILY PRN PRN Reason: Constipation Glucose (Glucose Gel 15 Gm Gel..Gram.) 15 gm PO Q15M PRN; Protocol PRN Reason: per Hypoglycemia Standing Ord. Heparin Sodium (Porcine) (Heparin Sodium,Porcine 5,000 Unit/Ml Vial) 5,000 unit SUBCUT Q8H [facility] Last Admin: 04/21/23 06:24 Dose: 5,000 unit Cefepime HCl 2 gm/ Sodium (Chloride) 50 mls @ 100 mls/hr IV Q24H [facility] Last Infusion: 04/20/23 23:09 Dose: Infused Vancomycin HCl 750 mg/ Sodium (Chloride) 265 mls @ 265 mls/hr IV Q12H [facility] Last Admin: 04/21/23 08:09 Dose: 265 mls/hr Insulin Glargine (Insulin Glargine,Hum.Rec.Anlog 100 Unit/Ml 10 Ml Vial) 10 unit SUBCUT DAILY [facility] Last Admin: 04/20/23 08:15 Dose: 10 unit Insulin Human Lispro (Insulin Lispro 100 Unit/Ml 3 Ml Vial) 0 unit SUBCUT QIDACHS [facility]; Protocol Last Admin: 04/21/23 08:38 Dose: 2 unit Lisinopril (Lisinopril 20 Mg Tablet) 20 mg PO DAILY [facility]; Protocol Last Admin: 04/19/23 08:08 Dose: 20 mg Melatonin (Melatonin 3 Mg Tablet) 6 mg PO BEDTIME PRN PRN Reason: insomnia Multivitamins/Vitamin C (Multivitamin Tablet) 1 tab PO DAILY [facility] Last Admin: 04/21/23 08:10 Dose: 1 tab Omeprazole (Omeprazole 20 Mg Capsule.Dr) 20 mg PO DAILY@06 [facility] Last Admin: 04/21/23 06:24 Dose: 20 mg Ondansetron HCl (Ondansetron Hcl 4 Mg/2 Ml Vial) 4 mg IVPUSH Q8H PRN PRN Reason: Nausea and Vomiting Ondansetron HCl (Ondansetron Hcl 4 Mg/2 Ml Vial) 4 mg IVPUSH ONCE PRN PRN Reason: Nausea and Vomiting Oxycodone HCl (Oxycodone Hcl Immed Release 5 Mg Tablet) 5 mg PO Q4H PRN PRN Reason: Pain, Moderate(Pain Scale 4-6) Last Admin: 04/20/23 18:18 Dose: 5 mg Pharmacy Consult (Consult Rx Perform Med Rec) 1 each MISCELLANE ONCE PRN PRN Reason: Consult order Pharmacy Consult (Consult Rx Vancomycin Dosing) 1 each MISCELLANE DAILY PRN PRN Reason: Consult order Sodium Chloride (0.9 % Sodium Chloride Flush 3 Ml Syringe) [address] [facility] Last Admin: 04/21/23 08:10 Dose: 3 ml Sodium Hypochlorite (Sodium Hypochlorite 0.25% 473 Ml Solution) 1 appl TOPICAL DAILY [facility] Last Admin: 04/20/23 14:13 Dose: Not Given Home Medications Medication Instructions Recorded Confirmed Last Taken Type lisinopril 20 mg tablet 20 mg PO DAILY 11/26/20 04/18/23 04/17/23 History atorvastatin 40 mg tablet 40 mg PO BEDTIME 04/18/23 04/18/23 04/17/23 History glipizide 10 mg tablet, extended 10 mg PO DAILY 04/18/23 04/18/23 04/17/23 History release 24 hr melatonin 5 mg tablet 5 mg PO BEDTIME PRN insomnia 04/18/23 04/18/23 04/17/23 History multivitamin 1 tab PO DAILY 04/18/23 04/18/23 04/17/23 History omeprazole 20 mg capsule,delayed 20 mg PO DAILY@0630 04/18/23 04/18/23 04/17/23 History release Physical Exam Vital Signs: Vital Signs: Last Vital Signs Temp 98.1 F 04/21/23 07:38 Pulse 92 04/21/23 07:38 Resp 18 04/21/23 07:38 BP 138/63 04/21/23 07:38 Pulse Ox 100 04/21/23 07:38 O2 Del Method Room Air 04/21/23 07:38 BMI result Body Mass Index 30.1 Const: General: cooperative, healthy appearing and comfortable Orientation/consciousness: oriented to person, oriented to place and oriented to time HEENT: Head: Yes normal to inspection Neck: Neck: Yes normal visual inspection Carotids: no bruits Chest: Chest palpation & inspection: normal inspection of the chest Resp: Effort & Inspection: normal respiratory effort and able to speak in complete sentences Auscultation: clear to auscultation bilaterally, no crackles, no rales, no rhonchi and no wheezes Cardio: Rate: regular rate Rhythm: regular rhythm Heart sounds: S1 normal heart sound present and S2 normal heart sound present Bruits: no carotid bruits Peripheral pulses: Peripheral pulses 2+ throughout GI: Inspection: Yes normal to inspection Skin: Other: Right foot dressing clean dry intact obvious 2nd toe amputation faint DP and PT pulses. Calcaneus heel dry callus with crack Wounds: no wounds Hair: normal Neuro: General: oriented to person, oriented to place and oriented to time Cranial nerves: Yes CN's II-XII intact bilaterally and Yes Normal hearing present Cognition (Neuro): normal cognition Motor exam (neuro): 5/5 motor strength present throughout Extrem: Other: venous exam: No significant superficial varicosities or spider telangiectasias, minimal edema General: No clubbing, No cyanosis and No edema Psych: Appearance: grossly normal Mental Status: mental status grossly normal Speech and movement: Normal speech and movement present Results Labs 04/21/23 05:43 04/21/23 05:43 Labs: Abnormal lab results 04/20/23 04/20/23 04/20/23 Range/Units 11:00 13:57 15:51 WBC (4.8-10.8) X10*3/uL RBC (4.60-5.80) X10*6/uL Hgb (14.0-18.0) g/dl Hct (42.0-52.0) % Immature Gran % (Auto) (0.0-0.4) % Neut % (Auto) (45-73) % Lymph % (Auto) (20-40) % [place] # (Auto) (0.1-1.2) X10*3/uL Abs Immat Gran (auto) (0.00-0.03) X10*3/uL Absolute Neuts (auto) (2.0-8.3) x10*3/uL Sodium (135-145) mmol/L Potassium (3.3-5.1) mmol/L Carbon Dioxide (22-29) mmol/L BUN (9-16) mg/dL Creatinine (0.5-1.4) mg/dL POC Glucose 132 H 182 H 15 L* (60-115) mg/dL Random Glucose (60-115) mg/dL Random Vancomycin (15-20) mcg/mL 04/20/23 04/20/23 04/20/23 Range/Units 15:53 16:02 18:07 WBC (4.8-10.8) X10*3/uL RBC (4.60-5.80) X10*6/uL Hgb (14.0-18.0) g/dl Hct (42.0-52.0) % Immature Gran % (Auto) (0.0-0.4) % Neut % (Auto) (45-73) % Lymph % (Auto) (20-40) % [place] # (Auto) (0.1-1.2) X10*3/uL Abs Immat Gran (auto) (0.00-0.03) X10*3/uL Absolute Neuts (auto) (2.0-8.3) x10*3/uL Sodium (135-145) mmol/L Potassium (3.3-5.1) mmol/L Carbon Dioxide (22-29) mmol/L BUN (9-16) mg/dL Creatinine (0.5-1.4) mg/dL POC Glucose 258 H 256 H (60-115) mg/dL Random Glucose (60-115) mg/dL Random Vancomycin 13.1 L (15-20) mcg/mL 04/20/23 04/21/23 04/21/23 Range/Units 20:52 05:43 05:43 WBC 30.5 H* (4.8-10.8) X10*3/uL RBC 3.58 L (4.60-5.80) X10*6/uL Hgb 9.9 L (14.0-18.0) g/dl Hct 30.2 L (42.0-52.0) % Immature Gran % (Auto) 4.4 H (0.0-0.4) % Neut % (Auto) 79.7 H (45-73) % Lymph % (Auto) 8.1 L (20-40) % [place] # (Auto) 2.0 H (0.1-1.2) X10*3/uL Abs Immat Gran (auto) 1.35 H (0.00-0.03) X10*3/uL Absolute Neuts (auto) 24.3 H (2.0-8.3) x10*3/uL Sodium 132 L (135-145) mmol/L Potassium 3.2 L (3.3-5.1) mmol/L Carbon Dioxide 20 L (22-29) mmol/L BUN 24 H (9-16) mg/dL Creatinine 1.97 H (0.5-1.4) mg/dL POC Glucose 306 H (60-115) mg/dL Random Glucose 217 H (60-115) mg/dL Random Vancomycin (15-20) mcg/mL 04/21/23 Range/Units 07:37 WBC (4.8-10.8) X10*3/uL RBC (4.60-5.80) X10*6/uL Hgb (14.0-18.0) g/dl Hct (42.0-52.0) % Immature Gran % (Auto) (0.0-0.4) % Neut % (Auto) (45-73) % Lymph % (Auto) (20-40) % [place] # (Auto) (0.1-1.2) X10*3/uL Abs Immat Gran (auto) (0.00-0.03) X10*3/uL Absolute Neuts (auto) (2.0-8.3) x10*3/uL Sodium (135-145) mmol/L Potassium (3.3-5.1) mmol/L Carbon Dioxide (22-29) mmol/L BUN (9-16) mg/dL Creatinine (0.5-1.4) mg/dL POC Glucose 197 H (60-115) mg/dL Random Glucose (60-115) mg/dL Random Vancomycin (15-20) mcg/mL Short CBC 04/21/23 Range/Units 05:43 WBC 30.5 H* (4.8-10.8) X10*3/uL Hgb 9.9 L (14.0-18.0) g/dl Hct 30.2 L (42.0-52.0) % Plt Count TNP BMP 04/21/23 05:43 Sodium 132 L Potassium 3.2 L Chloride 103 Carbon Dioxide 20 L BUN 24 H Creatinine 1.97 H Calcium 8.8 Urine 04/18/23 Range/Units 21:11 Urine Color Yellow Urine Appearance Clear Urine pH 6.0 (5.0-9.0) Ur Specific [place] 1.015 (1.005-1.025) Urine Protein 300 (3+) H (Neg-Trace) mg/dL Urine Glucose (UA) >=1000 H (Negative) mg/dL All other labs normal. Assessment and Plan (1) Diabetic wet gangrene of the foot: Status: Acute Plan In short patient has nonhealing diabetic foot ulcer. Patient has undergone amputation. Slow to improve. White count is still elevated 30.5. Would continue with antibiotics. I do believe arterial status is within normal limits but did obtain noninvasive arterial testing. We will continue monitor the status of this patient with you. Thank you for allowing us to assist in this patient's care. If there are any questions or concerns please do not hesitate to contact us. Time Spent With Patient Time: Total time managing care of this patient today ____ minutes. Procedures Date of Service Date of Service: 04/21/23
--- NOTE | 2023-04-21 09:31 | HO.POSTANES ---
Post Anesthesia Evaluation Post Anesthesia Evaluation Date of Service: 04/21/23 Vital Signs: Vital Signs Temp Pulse Resp BP Pulse Ox O2 Del Method 04/21/23 07:38 98.1 F 92 18 138/63 100 Room Air 04/21/23 00:02 99.7 F 103 H 19 129/60 99 Room Air 04/21/23 00:00 99.7 F 103 H 19 129/60 103 H Room Air Anesthesia: General Mental Status: Awake Pain Control: Satisfactory Nausea/Vomiting: None Hydration: Adequate Anesthesia-Related Issues: No Anes. Related Issues
--- NOTE | 2023-04-21 09:45 | P.PNGS_ITS ---
Subjective Subjective Date of Service: 04/21/23 <Rolanda Steel PA-C - Last Filed: 04/21/23 09:52> 04/21/23 <Vero Crook MD - Last Filed: 04/21/23 14:23> Interval history: Feeling better this morning. Denies significant pain. <Rolanda Steel PA-C - Last Filed: 04/21/23 09:52> Physical Exam Vital Signs: Vital Signs: Last Vital Signs Temp 98.1 F 04/21/23 07:38 Pulse 92 04/21/23 07:38 Resp 18 04/21/23 07:38 BP 138/63 04/21/23 07:38 Pulse Ox 100 04/21/23 07:38 O2 Del Method Room Air 04/21/23 07:38 BMI result Body Mass Index 30.1 <Rolanda Steel PA-C - Last Filed: 04/21/23 09:52> Const: General: comfortable, no acute distress and alert <Rolanda Steel PA-C - Last Filed: 04/21/23 09:52> Orientation/consciousness: patient oriented x3 <Rolanda Steel PA-C - Last Filed: 04/21/23 09:52> Resp: Effort & Inspection: normal respiratory effort <HENRRY Andrade Last Filed: 04/21/23 09:52> Skin: Other: warm and dry <Rolanda Steel PA-C - Last Filed: 04/21/23 09:52> Neuro: General: patient oriented x3 and moves all extremities <Rolanda Steel PA-C - Last Filed: 04/21/23 09:52> Extrem: Other: right second toe amp site continues with some nonviable soft tissue, erythema and edema improved, bone clean <HENRRY Andrade Last Filed: 04/21/23 09:52> Objective Data Active Medications Acetaminophen (Acetaminophen 325 Mg Tablet) 650 mg PO Q6H PRN PRN Reason: Pain, Mild (Pain Scale 1-3) Last Admin: 04/20/23 14:02 Dose: 650 mg Documented By: AMINATA Atorvastatin Calcium (Atorvastatin Calcium 40 Mg Tablet) 40 mg PO BEDTIME [facility] Last Admin: 04/20/23 20:24 Dose: 40 mg Documented By: MILADIS Dextrose (Dextrose 50 % 25 Gm/50 Ml Syringe) 25 gm IVPUSH Q15M PRN; Protocol PRN Reason: per Hypoglycemia Standing Ord. Docusate Sodium (Docusate Sodium 100 Mg Capsule) 100 mg PO DAILY PRN PRN Reason: Constipation Glucose (Glucose Gel 15 Gm Gel..Gram.) 15 gm PO Q15M PRN; Protocol PRN Reason: per Hypoglycemia Standing Ord. Heparin Sodium (Porcine) (Heparin Sodium,Porcine 5,000 Unit/Ml Vial) 5,000 unit SUBCUT Q8H [facility] Last Admin: 04/21/23 06:24 Dose: 5,000 unit Documented By: JACINTA Cefepime HCl 2 gm/ Sodium (Chloride) 50 mls @ 100 mls/hr IV Q24H [facility] Last Infusion: 04/20/23 23:09 Dose: 0 mls/hr Documented By: MILADIS Vancomycin HCl 750 mg/ Sodium (Chloride) 265 mls @ 265 mls/hr IV Q12H [facility] Last Infusion: 04/21/23 09:45 Dose: 0 mls/hr Documented By: DEEPTI Insulin Glargine (Insulin Glargine,Hum.Rec.Anlog 100 Unit/Ml 10 Ml Vial) 10 unit SUBCUT DAILY [facility] Last Admin: 04/20/23 08:15 Dose: 10 unit Documented By: AMINATA Insulin Human Lispro (Insulin Lispro 100 Unit/Ml 3 Ml Vial) 0 unit SUBCUT QIDACHS [facility]; Protocol Last Admin: 04/21/23 08:38 Dose: 2 unit Documented By: DEEPTI Lisinopril (Lisinopril 20 Mg Tablet) 20 mg PO DAILY [facility]; Protocol Last Admin: 04/19/23 08:08 Dose: 20 mg Documented By: KAYLA Melatonin (Melatonin 3 Mg Tablet) 6 mg PO BEDTIME PRN PRN Reason: insomnia Multivitamins/Vitamin C (Multivitamin Tablet) 1 tab PO DAILY [facility] Last Admin: 04/21/23 08:10 Dose: 1 tab Documented By: DEEPTI Omeprazole (Omeprazole 20 Mg Frida.) 20 mg PO DAILY@0630 [facility] Last Admin: 06/19/23 06:24 Dose: 20 mg Documented By: JACINTA Ondansetron HCl (Ondansetron Hcl 4 Mg/2 Ml Vial) 4 mg IVPUSH Q8H PRN PRN Reason: Nausea and Vomiting Ondansetron HCl (Ondansetron Hcl 4 Mg/2 Ml Vial) 4 mg IVPUSH ONCE PRN PRN Reason: Nausea and Vomiting Oxycodone HCl (Oxycodone Hcl Immed Release 5 Mg Tablet) 5 mg PO Q4H PRN PRN Reason: Pain, Moderate(Pain Scale 4-6) Last Admin: 04/20/23 18:18 Dose: 5 mg Documented By: AMINATA Pharmacy Consult (Consult Rx Perform Med Rec) 1 each MISCELLANE ONCE PRN PRN Reason: Consult order Pharmacy Consult (Consult Rx Vancomycin Dosing) 1 each MISCELLANE DAILY PRN PRN Reason: Consult order Sodium Chloride (0.9 % Sodium Chloride Flush 3 Ml Syringe) 3 ml IVFLUSH QSHIFT [facility] Last Admin: 04/21/23 08:10 Dose: 3 ml Documented By: DEEPTI Sodium Hypochlorite (Sodium Hypochlorite 0.25% 473 Ml Solution) 1 appl TOPICAL DAILY [facility] Last Admin: 04/21/23 09:42 Dose: Not Given Documented By: DEEPTI Non-Admin Reason: Surg. PA changed dsg this AM. <Rolanda Steel PA-C - Last Filed: 04/21/23 09:52> Labs CBC & Chem 7: 04/21/23 05:43 04/21/23 05:43 <Rolanda Steel PA-C - Last Filed: 04/21/23 09:52> Labs: Laboratory Results - last 24 hr 04/20/23 04/20/23 04/20/23 11:00 13:57 15:51 MCV MCH MCHC RDW Plt Count MPV Immature Gran % (Auto) Neut % (Auto) Lymph % (Auto) [place] % (Auto) Eos % (Auto) Baso % (Auto) Lymph # (Auto) [place] # (Auto) Eos # (Auto) Baso # (Auto) Abs Immat Gran (auto) Absolute Neuts (auto) Absolute Nucleated RBC Nucleated RBC % (auto) Smear Tech's Comments Anion Gap Estim Creat Clear Calc Estimated GFR POC Glucose 132 H 182 H 15 L* Random Glucose Calcium Random Vancomycin 04/20/23 04/20/23 04/20/23 15:53 16:02 18:07 MCV MCH MCHC RDW Plt Count MPV Immature Gran % (Auto) Neut % (Auto) Lymph % (Auto) [place] % (Auto) Eos % (Auto) Baso % (Auto) Lymph # (Auto) [place] # (Auto) Eos # (Auto) Baso # (Auto) Abs Immat Gran (auto) Absolute Neuts (auto) Absolute Nucleated RBC Nucleated RBC % (auto) Smear Tech's Comments Anion Gap Estim Creat Clear Calc Estimated GFR POC Glucose 258 H 256 H Random Glucose Calcium Random Vancomycin 13.1 L 04/20/23 04/21/23 04/21/23 20:52 05:43 05:43 MCV 84.4 MCH 27.7 MCHC 32.8 RDW 12.4 Plt Count TNP MPV TNP Immature Gran % (Auto) 4.4 H Neut % (Auto) 79.7 H Lymph % (Auto) 8.1 L [place] % (Auto) 6.4 Eos % (Auto) 1.1 Baso % (Auto) 0.3 Lymph # (Auto) 2.5 [place] # (Auto) 2.0 H Eos # (Auto) 0.4 Baso # (Auto) 0.1 Abs Immat Gran (auto) 1.35 H Absolute Neuts (auto) 24.3 H Absolute Nucleated RBC 0.000 Nucleated RBC % (auto) 0.0 Smear Tech's Comments VERIFIED Anion Gap 12 Estim Creat Clear Calc 55.4 Estimated GFR 37 POC Glucose 306 H Random Glucose 217 H Calcium 8.8 Random Vancomycin 04/21/23 07:37 MCV MCH MCHC RDW Plt Count MPV Immature Gran % (Auto) Neut % (Auto) Lymph % (Auto) [place] % (Auto) Eos % (Auto) Baso % (Auto) Lymph # (Auto) [place] # (Auto) Eos # (Auto) Baso # (Auto) Abs Immat Gran (auto) Absolute Neuts (auto) Absolute Nucleated RBC Nucleated RBC % (auto) Smear Tech's Comments Anion Gap Estim Creat Clear Calc Estimated GFR POC Glucose 197 H Random Glucose Calcium Random Vancomycin <Rolanda Steel PA-C - Last Filed: 04/21/23 09:52> Microbiology Microbiology Results: Microbiology 04/19/23 14:46 Gram Stain - Final Toe Routine Culture - Final Strep agalactiae (Grp B) 04/18/23 18:24 Blood Culture - Preliminary Blood - Venous No growth after 48 hours. 04/18/23 18:24 Blood Culture - Preliminary Blood - Venous No growth after 48 hours. <Rolanda Steel PA-C - Last Filed: 04/21/23 09:52> Procedures Date of Service Date of Service: 04/21/23 <Rolanda Steel PA-C - Last Filed: 04/21/23 09:52> 04/21/23 <Vero Crook MD - Last Filed: 04/21/23 14:23> Progress Note: A&P Assessment and plan (1) Diabetic wet gangrene of the foot: Status: Acute <HENRRY Andrade Last Filed: 04/21/23 09:52> Assessment and Plan: POD#2 s/p right second toe amp and soft tissue debridement of gangrenous tissue. WBC downtrending slowly. Wound overall ok but will need debridement of nonviable soft tissue which hopefully can be done at bedside. Continue wet to dry dressings daily. Cont IV abx and tailor to culture. <Rolanda Steel PA-C - Last Filed: 04/21/23 09:52> POD#2 s/p right second toe amp and soft tissue debridement of gangrenous tissue. WBC downtrending slowly. Wound overall ok but will need debridement of nonviable soft tissue which hopefully can be done at bedside. Continue wet to dry dressings daily. Cont IV abx and tailor to culture. agree with above, no vascular issues, consider further bedside debridement as needed. if wbc not improving more onsider ct scan to raji rest of foot. <Vero Crook MD - Last Filed: 04/21/23 14:23> Time Spent With Patient Time: Total time managing care of this patient today ____ minutes. <HENRRY Andrade Last Filed: 04/21/23 09:52> Quality Stroke Does the patient have a stroke diagnosis?: No <HENRRY Andrade Last Filed: 04/21/23 09:52> VTE Prior VTE?: No <Rolanda Steel PA-C - Last Filed: 04/21/23 09:52> VTE Risk Level:: Medical - moderate - high <Rolanda Steel PA-C - Last Filed: 04/21/23 09:52> VTE Device Contraindication: Treatment Not Indicated <Rolanda Steel PA-C - Last Filed: 04/21/23 09:52> VTE Drug Contraindication: N/A - Med Ordered <Rolanda Steel PA-C - Last Filed: 04/21/23 09:52>
[2023-04-21 11:19] LABS: Glucose, Whole Blood 157 mg/dL (60-115)
[2023-04-21] MEDS: oxyCODONE HCl Immed Release 5 MG TABLET PO ×2 (12:20→20:07)
[2023-04-21] MEDS: ondansetron HCL 4 MG/2 ML VIAL IVPUSH (12:20)
--- NOTE | 2023-04-21 13:56 | P.PNIM_ITS ---
Subjective Subjective Date of Service: 04/21/23 Interval History: seen and examined this morning Follow-up for right foot infection status post toe amputation no overnight events pain under better control today Afebrile, WBC remains significantly elevated at 30 Review of Systems Review of Systems: Yes all other systems are reviewed and are negative Constitutional Constitutional: Denies chills and Denies fever(s) Cardiovascular Cardiovascular: Denies chest pain, Denies palpitations and Denies dyspnea Respiratory Respiratory: Denies cough and Denies dyspnea Gastrointestinal Gastrointestinal: Denies abdominal pain Endocrine Endocrine: Denies palpitations Physical Exam Vital Signs: Vital Signs: Last Vital Signs Temp 98.1 F 04/21/23 07:38 Pulse 92 04/21/23 07:38 Resp 18 04/21/23 07:38 BP 138/63 04/21/23 07:38 Pulse Ox 100 04/21/23 07:38 O2 Del Method Room Air 04/21/23 07:38 BMI result Body Mass Index 30.1 Constitutional - Awake and Alert, No apparent distress Eyes - PERRLA, EOMI Cardiovascular - S1S2, RRR, No edema Respiratory - Normal lung expansion, Normal respiratory effort, No respiratory distress, CTA bilaterally Extremities - no calf tenderness bilaterally. Post-op bandage on place right foot. Per gen surgery note: right second toe amp site continues with some nonviable soft tissue, erythema and edema improved, bone clean Skin - Warm/Dry Neurological - Alert & oriented x3 Psychological - Appropriate affect Const: General: comfortable, no acute distress and alert Orientation/consciousness: patient oriented x3 Resp: Effort & Inspection: normal respiratory effort Skin: Other: warm and dry Neuro: General: patient oriented x3 Extrem: Other: right second toe amp site continues with some nonviable soft tissue, erythema and edema improved, bone clean Objective Data Active Medications Acetaminophen (Acetaminophen 325 Mg Tablet) 650 mg PO Q6H PRN PRN Reason: Pain, Mild (Pain Scale 1-3) Last Admin: 04/20/23 14:02 Dose: 650 mg Documented By: AMINATA Atorvastatin Calcium (Atorvastatin Calcium 40 Mg Tablet) 40 mg PO BEDTIME LYSSA Last Admin: 04/20/23 20:24 Dose: 40 mg Documented By: MILADIS Dextrose (Dextrose 50 % 25 Gm/50 Ml Syringe) 25 gm IVPUSH Q15M PRN; Protocol PRN Reason: per Hypoglycemia Standing Ord. Docusate Sodium (Docusate Sodium 100 Mg Capsule) 100 mg PO DAILY PRN PRN Reason: Constipation Glucose (Glucose Gel 15 Gm Gel..Gram.) 15 gm PO Q15M PRN; Protocol PRN Reason: per Hypoglycemia Standing Ord. Heparin Sodium (Porcine) (Heparin Sodium,Porcine 5,000 Unit/Ml Vial) 5,000 unit SUBCUT Q8H [facility] Last Admin: 04/21/23 06:24 Dose: 5,000 unit Documented By: JACINTA Cefepime HCl 2 gm/ Sodium (Chloride) 50 mls @ 100 mls/hr IV Q24H [facility] Last Infusion: 04/20/23 23:09 Dose: 0 mls/hr Documented By: MILADIS Vancomycin HCl 750 mg/ Sodium (Chloride) 265 mls @ 265 mls/hr IV Q12H [facility] [place] Last Infusion: 04/21/23 09:45 Dose: 0 mls/hr Documented By: DEEPTI Insulin Glargine (Insulin Glargine,Hum.Rec.Anlog 100 Unit/Ml 10 Ml Vial) 10 unit SUBCUT DAILY [facility] [place] Last Admin: 04/20/23 08:15 Dose: 10 unit Documented By: AMINATA Insulin Human Lispro (Insulin Lispro 100 Unit/Ml 3 Ml Vial) 0 unit SUBCUT QIDACHS [facility]; Protocol Last Admin: 04/21/23 12:21 Dose: Not Given Documented By: DEEPTI Non-Admin Reason: Patient Refused Lisinopril (Lisinopril 20 Mg Tablet) 20 mg PO DAILY [facility]; Protocol Last Admin: 04/19/23 08:08 Dose: 20 mg Documented By: KAYLA Melatonin (Melatonin 3 Mg Tablet) 6 mg PO BEDTIME PRN PRN Reason: insomnia Multivitamins/Vitamin C (Multivitamin Tablet) 1 tab PO DAILY [facility] [place] Last Admin: 04/21/23 08:10 Dose: 1 tab Documented By: DEEPTI Omeprazole (Omeprazole 20 Mg Capsule.) 20 mg PO DAILY@0630 [facility] [place] Last Admin: 04/21/23 06:24 Dose: 20 mg Documented By: JACINTA Ondansetron HCl (Ondansetron Hcl 4 Mg/2 Ml Vial) 4 mg IVPUSH Q8H PRN PRN Reason: Nausea and Vomiting Last Admin: 04/21/23 12:20 Dose: 4 mg Documented By: DEEPTI Ondansetron HCl (Ondansetron Hcl 4 Mg/2 Ml Vial) 4 mg IVPUSH ONCE PRN PRN Reason: Nausea and Vomiting Oxycodone HCl (Oxycodone Hcl Immed Release 5 Mg Tablet) 5 mg PO Q4H PRN PRN Reason: Pain, Moderate(Pain Scale 4-6) Last Admin: 04/21/23 12:20 Dose: 5 mg Documented By: DEEPTI Pharmacy Consult (Consult Rx Perform Med Rec) 1 each MISCELLANE ONCE PRN PRN Reason: Consult order Pharmacy Consult (Consult Rx Vancomycin Dosing) 1 each MISCELLANE DAILY PRN PRN Reason: Consult order Sodium Chloride (0.9 % Sodium Chloride Flush 3 Ml Syringe) 3 ml IVFLUSH QSHIFT [facility] Last Admin: 04/21/23 08:10 Dose: 3 ml Documented By: DEEPTI Sodium Hypochlorite (Sodium Hypochlorite 0.25% 473 Ml Solution) 1 appl TOPICAL DAILY [facility] [place] Last Admin: 04/21/23 09:42 Dose: Not Given Documented By: DEEPTI Non-Admin Reason: Surg. PA changed dsg this AM. Labs 04/21/23 05:43 04/21/23 05:43 Labs: Laboratory Results - last 24 hr 04/18/23 04/20/23 04/20/23 18:24 13:57 15:51 MCV MCH MCHC RDW Plt Count MPV Immature Gran % (Auto) Neut % (Auto) Lymph % (Auto) [place] % (Auto) Eos % (Auto) Baso % (Auto) Lymph # (Auto) [place] # (Auto) Eos # (Auto) Baso # (Auto) Abs Immat Gran (auto) Absolute Neuts (auto) Absolute Nucleated RBC Nucleated RBC % (auto) Smear Tech's Comments Smear Path Review SEE NOTE Anion Gap Estim Creat Clear Calc Estimated GFR POC Glucose 182 H 15 L* Random Glucose Calcium Random Vancomycin 04/20/23 04/20/23 04/20/23 15:53 16:02 18:07 MCV MCH MCHC RDW Plt Count MPV Immature Gran % (Auto) Neut % (Auto) Lymph % (Auto) [place] % (Auto) Eos % (Auto) Baso % (Auto) Lymph # (Auto) [place] # (Auto) Eos # (Auto) Baso # (Auto) Abs Immat Gran (auto) Absolute Neuts (auto) Absolute Nucleated RBC Nucleated RBC % (auto) Smear Tech's Comments Smear Path Review Anion Gap Estim Creat Clear Calc Estimated GFR POC Glucose 258 H 256 H Random Glucose Calcium Random Vancomycin 13.1 L 04/20/23 04/21/23 04/21/23 20:52 05:43 05:43 MCV 84.4 MCH 27.7 MCHC 32.8 RDW 12.4 Plt Count TNP MPV TNP Immature Gran % (Auto) 4.4 H Neut % (Auto) 79.7 H Lymph % (Auto) 8.1 L [place] % (Auto) 6.4 Eos % (Auto) 1.1 Baso % (Auto) 0.3 Lymph # (Auto) 2.5 [place] # (Auto) 2.0 H Eos # (Auto) 0.4 Baso # (Auto) 0.1 Abs Immat Gran (auto) 1.35 H Absolute Neuts (auto) 24.3 H Absolute Nucleated RBC 0.000 Nucleated RBC % (auto) 0.0 Smear Tech's Comments VERIFIED Smear Path Review Anion Gap 12 Estim Creat Clear Calc 55.4 Estimated GFR 37 POC Glucose 306 H Random Glucose 217 H Calcium 8.8 Random Vancomycin 04/21/23 04/21/23 07:37 11:11 MCV MCH MCHC RDW Plt Count MPV Immature Gran % (Auto) Neut % (Auto) Lymph % (Auto) [place] % (Auto) Eos % (Auto) Baso % (Auto) Lymph # (Auto) [place] # (Auto) Eos # (Auto) Baso # (Auto) Abs Immat Gran (auto) Absolute Neuts (auto) Absolute Nucleated RBC Nucleated RBC % (auto) Smear Tech's Comments Smear Path Review Anion Gap Estim Creat Clear Calc Estimated GFR POC Glucose 197 H 157 H Random Glucose Calcium Random Vancomycin Microbiology Microbiology Results: Microbiology 04/19/23 14:46 Gram Stain - Final Toe Routine Culture - Final Strep agalactiae (Grp B) 04/18/23 18:24 Blood Culture - Preliminary Blood - Venous No growth after 48 hours. 04/18/23 18:24 Blood Culture - Preliminary Blood - Venous No growth after 48 hours. Assessment and Plan (1) Diabetic wet gangrene of the foot: Status: Acute (2) Hyperglycemia: Status: Acute (3) Osteomyelitis: Status: Acute (4) Sepsis: Status: Acute (5) Pseudohyponatremia: Status: Acute Plan Pt is a 42-year-old male with a PMH significant for?HTN, HLD, non insulin- dependent diabetes type 2, and CKD stage III who presents to the ED with?right foot pain, swelling, and redness, and discoloration of his 2nd toe, now s/p right 2nd toe amputation being treated with IV antibiotics. Sepsis secondary to gangrenous right toe/foot wound related to diabetes Met criteria with WBC of 35.2 and tacycardia. CRP of 27.75, ESR 97. Lactic acid wnl s/p right second toe amputation 04/19 wound culture growing group b strep given persistent leukocytosis of 30k (minimally improved) will continue IV Vanco and cefepime for now surgery following ID consult pending blood cultures negative to date continue local wound care per surgery rec. May require bedside debridement Left foot osteo xray concerning for osteomyelitis of left foot - first distal phalanx continue abx as above ID consult pending [id number] diabetes type 2, with hyperglycemia- glucose control improving glucose of 529 on admission on glipizide at baseline, will hold HbA1c 10.7 pt non-compliant with diabetic diet or blood sugar monitoring started on Lantus 10U, uptitrate prn POCs improving Diabetic diet Hyponatremia primarily related to pseudohyponatremia from hyperglycemia Follow BMP CKD stage III SCr down to 1.97 - at baseline Follow BMP Acute hyponatremia replete with 40meq KCl follow BMP normoycytic anemia likely related to chronic dz and acute inflammation slight drop in H&H likely secondary to surgery, still above transfusion threshold follow CBC HLD Continue statin HTN bp solft -Hold lisinopril Full Code Attending:?Dr. Alas DVT Prophylaxis:heparin patient requires ongoing inpatient hospitalization for management of gangrenous foot infection including acute surgical intervention as well as IV antibiotics Time Spent With Patient Time: Total time managing care of this patient today ____ minutes. Quality Stroke Does the patient have a stroke diagnosis?: No VTE Prior VTE?: No VTE Risk Level:: Medical - moderate - high VTE Device Contraindication: Treatment Not Indicated VTE Drug Contraindication: N/A - Med Ordered
[2023-04-21] MEDS: Potassium Chloride Packet 20 MEQ PACKET 40 MEQ PO (14:31)
--- NOTE | 2023-04-21 14:42 | MHC.CM.PN ---
Per MD rounds no dc today. Bed side debridement planned per MD. Patient continues on IV ABX. DP Home w IV ABX vs STR.
[2023-04-21 15:46] VITALS: BP 127/60; PULSE 100; RESP 18; TEMP 36.5; O2SAT 100
[2023-04-21 15:56] LABS: Glucose, Whole Blood 243 mg/dL (60-115)
--- NOTE | 2023-04-21 19:20 | HE.PHANOTE ---
Renal function slightly improved today with SCr 1.97. Level @1800 came back at 18.0. Will monitor closely and recheck level 04/22 @1800 and check SCr again in the morning to ensure he is not experiencing worsening kidney function.
[2023-04-21] MEDS: Atorvastatin Calcium 40 MG TABLET PO (20:07)
[2023-04-21 20:34] LABS: Glucose, Whole Blood 172 mg/dL (60-115)
[2023-04-21] MEDS: cefEPime HCl 2 GM in 0.9 % Sodium Chloride 50 ML IV (22:18)
[2023-04-22] VITALS: BP 140/69; PULSE 100; RESP 16; TEMP 36.3; O2SAT 100
[2023-04-22] MEDS: Heparin Sodium,Porcine 5,000 UNIT/ML VIAL 5000 UNIT SUBCUT ×3 (06:07→20:51)
[2023-04-22] MEDS: Omeprazole 20 MG CAPSULE.DR PO (06:07)
[2023-04-22 06:16] LABS: Basophils Absolute Auto 0.1 X10*3/uL (0.0-0.2); Basophils Percent Auto 0.3 % (0-2); Eosinophils Absolute Auto 0.2 X10*3/uL (0.0-0.4); Eosinophils Percent Auto 0.7 % (0-4); Hematocrit 30.7 % (42.0-52.0); Hemoglobin 9.8 g/dl (14.0-18.0); Imm Gran Abs Auto 1.19 X10*3/uL (0.00-0.03); Imm Gran Pct Auto 3.7 % (0.0-0.4); Lymphocytes Percent Auto 6.1 % (20-40); MANUAL DIFF FLAG SCAN; Mean Corpuscular HGB Conc 31.9 g/dl (31.0-36.0); Mean Corpuscular Hemoglobin 26.6 pg (27.0-33.0); Mean Corpuscular Volume 83.2 fL (80.0-98.0); Mean Platelet Volume 11.2 fL (9.4-12.4); Monocytes Absolute Auto 1.6 X10*3/uL (0.1-1.2); Monocytes Percent Auto 5.1 % (2-11); Neutrophils Absolute Auto 27.1 x10*3/uL (2.0-8.3); Neutrophils Percent Auto 84.1 % (45-73); Platelet Count 168 X10*3/uL (160-400); Red Blood Count 3.69 X10*6/uL (4.60-5.80); Red Cell Distribution Width 12.4 % (11.0-16.0); SCAN SMEAR FLAG 1
[2023-04-22 06:34] LABS: Anion Gap 12 (12-20); Blood Urea Nitrogen 18 mg/dL (9-16); Calcium 8.8 mg/dL (8.4-10.2); Carbon Dioxide 20 mmol/L (22-29); Chloride 103 mmol/L (96-108); Creatinine Clr Calc Pharmacy 62.4; Estimated Glomerular Filt Rate 43; Glucose Random 170 mg/dL (60-115); Potassium 3.8 mmol/L (3.3-5.1); Sodium 131 mmol/L (135-145)
[2023-04-22 07:10] VITALS: BP 140/66; PULSE 98; RESP 18; TEMP 36.2; O2SAT 100
[2023-04-22 07:14] LABS: White Blood Count 32.2 X10*3/uL (4.8-10.8)
[2023-04-22 07:16] LABS: Glucose, Whole Blood 158 mg/dL (60-115)
[2023-04-22 07:21] LABS: SLIDE REVIEW VERIFIED
[2023-04-22] MEDS: Insulin Lispro 100 UNIT/ML 3 ML VIAL SUBCUT ×2 (08:07→16:24)
[2023-04-22] MEDS: Multivitamin TABLET 1 TAB PO (08:08)
[2023-04-22] MEDS: vancomycin HCL 750 MG in 0.9 % Sodium Chloride 250 ML 265 MG IV (08:09)
[2023-04-22] MEDS: 0.9 % Sodium Chloride Flush 3 ML SYRINGE IVFLUSH ×2 (08:10→16:24)
--- NOTE | 2023-04-22 09:45 | P.PNGS_ITS ---
Subjective Subjective Date of Service: 04/22/23 <Rolanda Steel PA-C - Last Filed: 04/22/23 09:57> 04/22/23 <Eliecer Cali MD - Last Filed: 04/22/23 12:03> Interval history: Increasing pain at amp site, foot. WBC increasing. <Rolanda Steel PA-C - Last Filed: 04/22/23 09:57> Physical Exam Vital Signs: Vital Signs: Last Vital Signs Temp 97.2 F 04/22/23 07:10 Pulse 98 04/22/23 07:10 Resp 18 04/22/23 07:10 BP 140/66 H 04/22/23 07:10 Pulse Ox 100 04/22/23 07:10 O2 Del Method Room Air 04/22/23 07:10 BMI result Body Mass Index 30.1 <HENRRY Andrade Last Filed: 04/22/23 09:57> Const: General: comfortable, no acute distress and alert <Rolanda Steel PA-C - Last Filed: 04/22/23 09:57> Orientation/consciousness: patient oriented x3 <Rolanda Steel PA-C - Last Filed: 04/22/23 09:57> Resp: Effort & Inspection: normal respiratory effort <HENRRY Andrade Last Filed: 04/22/23 09:57> Skin: Other: warm and dry <Rolanda Steel PA-C - Last Filed: 04/22/23 09:57> Neuro: General: patient oriented x3 and moves all extremities <Rolanda Steel PA-C - Last Filed: 04/22/23 09:57> Extrem: Other: right foot with more gangrenous changes of subq tissue at second toe amputation site, new bogginess of plantar aspect extending to heel, some purulence expressed at wound; gangrenous changes are beginning to extend to third toe <HENRRY Andrade Last Filed: 04/22/23 09:57> Objective Data Active Medications Acetaminophen (Acetaminophen 325 Mg Tablet) 650 mg PO Q6H PRN PRN Reason: Pain, Mild (Pain Scale 1-3) Last Admin: 04/20/23 14:02 Dose: 650 mg Documented By: AMINATA Atorvastatin Calcium (Atorvastatin Calcium 40 Mg Tablet) 40 mg PO BEDTIME [facility] Last Admin: 04/21/23 20:07 Dose: 40 mg Documented By: JACINTA Dextrose (Dextrose 50 % 25 Gm/50 Ml Syringe) 25 gm IVPUSH Q15M PRN; Protocol PRN Reason: per Hypoglycemia Standing Ord. Docusate Sodium (Docusate Sodium 100 Mg Capsule) 100 mg PO DAILY PRN PRN Reason: Constipation Glucose (Glucose Gel 15 Gm Gel..Gram.) 15 gm PO Q15M PRN; Protocol PRN Reason: per Hypoglycemia Standing Ord. Heparin Sodium (Porcine) (Heparin Sodium,Porcine 5,000 Unit/Ml Vial) 5,000 unit SUBCUT Q8H [facility] Last Admin: 04/22/23 06:07 Dose: 5,000 unit Documented By: JACINTA Cefepime HCl 2 gm/ Sodium (Chloride) 50 mls @ 100 mls/hr IV Q24H [facility] Last Infusion: 04/21/23 22:56 Dose: 0 mls/hr Documented By: JACINTA Vancomycin HCl 750 mg/ Sodium (Chloride) 265 mls @ 265 mls/hr IV Q12H [facility] Last Admin: 04/22/23 08:09 Dose: 265 mls/hr Documented By: DEEPTI Insulin Glargine (Insulin Glargine,Hum.Rec.Anlog 100 Unit/Ml 10 Ml Vial) 10 unit SUBCUT DAILY [facility] Last Admin: 04/20/23 08:15 Dose: 10 unit Documented By: AMINATA Insulin Human Lispro (Insulin Lispro 100 Unit/Ml 3 Ml Vial) 0 unit SUBCUT QIDACHS [facility]; Protocol Last Admin: 04/22/23 08:07 Dose: 2 unit Documented By: DEEPTI Lisinopril (Lisinopril 20 Mg Tablet) 20 mg PO DAILY [facility]; Protocol Last Admin: 04/19/23 08:08 Dose: 20 mg Documented By: KAYLA Melatonin (Melatonin 3 Mg Tablet) 6 mg PO BEDTIME PRN PRN Reason: insomnia Morphine Sulfate (Morphine Sulfate 2 Mg/Ml Cartridge) 2 mg IVPUSH ONCE ONE; Protocol Stop: 04/22/23 09:44 Multivitamins/Vitamin C (Multivitamin Tablet) 1 tab PO DAILY [facility] Last Admin: 04/22/23 08:08 Dose: 1 tab Documented By: DEEPTI Omeprazole (Omeprazole 20 Mg Capsule.Dr) 20 mg PO DAILY@0630 [facility] Last Admin: 04/22/23 06:07 Dose: 20 mg Documented By: JACINTA Ondansetron HCl (Ondansetron Hcl 4 Mg/2 Ml Vial) 4 mg IVPUSH Q8H PRN PRN Reason: Nausea and Vomiting Last Admin: 04/21/23 12:20 Dose: 4 mg Documented By: DEEPTI Ondansetron HCl (Ondansetron Hcl 4 Mg/2 Ml Vial) 4 mg IVPUSH ONCE PRN PRN Reason: Nausea and Vomiting Oxycodone HCl (Oxycodone Hcl Immed Release 5 Mg Tablet) 5 mg PO Q4H PRN PRN Reason: Pain, Moderate(Pain Scale 4-6) Last Admin: 04/21/23 20:07 Dose: 5 mg Documented By: JACINTA Oxycodone HCl (Oxycodone Hcl Immed Release 5 Mg Tablet) 10 mg PO Q4H PRN PRN Reason: Pain, Severe (Pain Scale 7-10) Pharmacy Consult (Consult Rx Perform Med Rec) 1 each MISCELLANE ONCE PRN PRN Reason: Consult order Pharmacy Consult (Consult Rx Vancomycin Dosing) 1 each MISCELLANE DAILY PRN PRN Reason: Consult order Sodium Chloride (0.9 % Sodium Chloride Flush 3 Ml Syringe) 3 ml IVFLUSH QSHIFT [facility] Last Admin: 04/22/23 08:10 Dose: 3 ml Documented By: DEEPTI Sodium Hypochlorite (Sodium Hypochlorite 0.25% 473 Ml Solution) 1 appl TOPICAL DAILY [facility] Last Admin: 04/22/23 09:40 Dose: Not Given Documented By: DEEPTI Non-Admin Reason: Changed by Surg. team <Rolanda Steel PA-C - Last Filed: 04/22/23 09:57> Labs CBC & Chem 7: 04/22/23 05:57 04/22/23 05:57 <Rolanda Steel PA-C - Last Filed: 04/22/23 09:57> Labs: Laboratory Results - last 24 hr 04/18/23 04/21/23 04/21/23 18:24 11:11 15:53 MCV MCH MCHC RDW Plt Count MPV Immature Gran % (Auto) Neut % (Auto) Lymph % (Auto) [place] % (Auto) Eos % (Auto) Baso % (Auto) Lymph # (Auto) [place] # (Auto) Eos # (Auto) Baso # (Auto) Abs Immat Gran (auto) Absolute Neuts (auto) Absolute Nucleated RBC Nucleated RBC % (auto) Smear Tech's Comments Smear Path Review SEE NOTE Anion Gap Estim Creat Clear Calc Estimated GFR POC Glucose 157 H 243 H Random Glucose Calcium Random Vancomycin 04/21/23 04/21/23 04/22/23 18:40 20:25 05:57 MCV 83.2 MCH 26.6 L MCHC 31.9 RDW 12.4 Plt Count 168 MPV 11.2 Immature Gran % (Auto) 3.7 H Neut % (Auto) 84.1 H Lymph % (Auto) 6.1 L [place] % (Auto) 5.1 Eos % (Auto) 0.7 Baso % (Auto) 0.3 Lymph # (Auto) 2.0 [place] # (Auto) 1.6 H Eos # (Auto) 0.2 Baso # (Auto) 0.1 Abs Immat Gran (auto) 1.19 H Absolute Neuts (auto) 27.1 H Absolute Nucleated RBC 0.000 Nucleated RBC % (auto) 0.0 Smear Tech's Comments VERIFIED Smear Path Review Anion Gap Estim Creat Clear Calc Estimated GFR POC Glucose 172 H Random Glucose Calcium Random Vancomycin 18.0 04/22/23 04/22/23 05:57 07:03 MCV MCH MCHC RDW Plt Count MPV Immature Gran % (Auto) Neut % (Auto) Lymph % (Auto) [place] % (Auto) Eos % (Auto) Baso % (Auto) Lymph # (Auto) [place] # (Auto) Eos # (Auto) Baso # (Auto) Abs Immat Gran (auto) Absolute Neuts (auto) Absolute Nucleated RBC Nucleated RBC % (auto) Smear Tech's Comments Smear Path Review Anion Gap 12 Estim Creat Clear Calc 62.4 Estimated GFR 43 POC Glucose 158 H Random Glucose 170 H Calcium 8.8 Random Vancomycin <Rolanda Steel PA-C - Last Filed: 04/22/23 09:57> Microbiology Microbiology Results: Microbiology 04/19/23 14:46 Gram Stain - Final Toe Routine Culture - Final Strep agalactiae (Grp B) <Rolanda Steel PA-C - Last Filed: 04/22/23 09:57> Procedures Date of Service Date of Service: 04/22/23 <Rolanda Steel PA-C - Last Filed: 04/22/23 09:57> 04/22/23 <Eliecer Cali MD - Last Filed: 04/22/23 12:03> Progress Note: A&P Assessment and plan (1) Diabetic wet gangrene of the foot: Status: Acute <Rolanda Steel PA-C - Last Filed: 04/22/23 09:57> Assessment and Plan: wound examined note of persistent purulent drainage on the plantar aspect of the edge of the debridement site non viable tissue also seen on the edges of the wound WBC still elevated will bring back to the OR tomorrow for additional debridement, possible I&D of the plantar aspect explained this to the patient and his mother at bedside reviewed the technique of this procedure as was the risks, benefits, and alternatives <Eliecer Cali MD - Last Filed: 04/22/23 12:03> Assessment and Plan: POD#3 s/p right second toe amp and soft tissue debridement of gangrenous tissue. Amp site with increasing gangrenous subq tissue and new bogginess of plantar aspect with expression of purulence from wound. WBC beginning to trend back up. Wound needs to be opened up and debrided further. Will add onto OR schedule for tomorrow. Discussed plan with patient and mother who are in agreement. Also discussed possible need of further amputation down the line. <Rolanda Steel PA-C - Last Filed: 04/22/23 09:57> Time Spent With Patient Time: Total time managing care of this patient today ____ minutes. <Rolanda Steel PA-C - Last Filed: 04/22/23 09:57> Quality Stroke Does the patient have a stroke diagnosis?: No <HENRRY Andrade Last Filed: 04/22/23 09:57> VTE Prior VTE?: No <HENRRY Andrade Last Filed: 04/22/23 09:57> VTE Risk Level:: Medical - moderate - high <Rolanda Steel PA-C - Last Filed: 04/22/23 09:57> VTE Device Contraindication: Treatment Not Indicated <Rolanda Steel PA-C - Last Filed: 04/22/23 09:57> VTE Drug Contraindication: N/A - Med Ordered <Rolanda Steel PA-C - Last Filed: 04/22/23 09:57>
--- NOTE | 2023-04-22 10:17 | P.PNIM_ITS ---
Subjective Subjective Date of Service: 04/22/23 Interval History: Seen and examined this morning Interval history: Not feeling well. Reports anorexia, weakness. Remains afebrile. WBC elevated Review of Systems Review of Systems: Yes all other systems are reviewed and are negative Physical Exam Vital Signs: Vital Signs: Last Vital Signs Temp 97.2 F 04/22/23 07:10 Pulse 98 04/22/23 07:10 Resp 18 04/22/23 07:10 BP 140/66 H 04/22/23 07:10 Pulse Ox 100 04/22/23 07:10 O2 Del Method Room Air 04/22/23 07:10 BMI result Body Mass Index 30.1 Constitutional - Awake and Alert, No apparent distress Eyes - PERRLA, EOMI Cardiovascular - S1S2, RRR, No edema Respiratory - Normal lung expansion, Normal respiratory effort, No respiratory distress, CTA bilaterally Gastrointestinal - NT / ND; +BS; No rebound or guarding - No CVA tenderness Extremities - no calf tenderness bilaterally, no swelling. right second toe amp site continues with some nonviable soft tissue, erythema and edema improved, bone clean. see photo Skin - Warm/Dry Neurological - Alert & oriented x3 Psychological - Appropriate affect Objective Data Active Medications Acetaminophen (Acetaminophen 325 Mg Tablet) 650 mg PO Q6H PRN PRN Reason: Pain, Mild (Pain Scale 1-3) Last Admin: 04/20/23 14:02 Dose: 650 mg Documented By: AMINATA Atorvastatin Calcium (Atorvastatin Calcium 40 Mg Tablet) 40 mg PO BEDTIME [facility] Last Admin: 04/21/23 20:07 Dose: 40 mg Documented By: JACINTA Dextrose (Dextrose 50 % 25 Gm/50 Ml Syringe) 25 gm IVPUSH Q15M PRN; Protocol PRN Reason: per Hypoglycemia Standing Ord. Docusate Sodium (Docusate Sodium 100 Mg Capsule) 100 mg PO DAILY PRN PRN Reason: Constipation Glucose (Glucose Gel 15 Gm Gel..Gram.) 15 gm PO Q15M PRN; Protocol PRN Reason: per Hypoglycemia Standing Ord. Heparin Sodium (Porcine) (Heparin Sodium,Porcine 5,000 Unit/Ml Vial) 5,000 unit SUBCUT Q8H [facility] Last Admin: 04/22/23 06:07 Dose: 5,000 unit Documented By: JACINTA Cefepime HCl 2 gm/ Sodium (Chloride) 50 mls @ 100 mls/hr IV Q24H [facility] Last Infusion: 04/21/23 22:56 Dose: 0 mls/hr Documented By: JACINTA Vancomycin HCl 750 mg/ Sodium (Chloride) 265 mls @ 265 mls/hr IV Q12H [facility] Last Admin: 04/22/23 08:09 Dose: 265 mls/hr Documented By: DEEPTI Insulin Glargine (Insulin Glargine,Hum.Rec.Anlog 100 Unit/Ml 10 Ml Vial) 10 unit SUBCUT DAILY [facility] Last Admin: 04/20/23 08:15 Dose: 10 unit Documented By: AMINATA Insulin Human Lispro (Insulin Lispro 100 Unit/Ml 3 Ml Vial) 0 unit SUBCUT QIDACHS [facility]; Protocol Last Admin: 04/22/23 08:07 Dose: 2 unit Documented By: DEEPTI Lisinopril (Lisinopril 20 Mg Tablet) 20 mg PO DAILY [facility]; Protocol Last Admin: 04/19/23 08:08 Dose: 20 mg Documented By: KAYLA Melatonin (Melatonin 3 Mg Tablet) 6 mg PO BEDTIME PRN PRN Reason: insomnia Multivitamins/Vitamin C (Multivitamin Tablet) 1 tab PO DAILY [facility] Last Admin: 04/22/23 08:08 Dose: 1 tab Documented By: DEEPTI Omeprazole (Omeprazole 20 Mg Capsule.Dr) 20 mg PO DAILY@0630 [facility] Last Admin: 04/22/23 06:07 Dose: 20 mg Documented By: JACINTA Ondansetron HCl (Ondansetron Hcl 4 Mg/2 Ml Vial) 4 mg IVPUSH Q8H PRN PRN Reason: Nausea and Vomiting Last Admin: 04/21/23 12:20 Dose: 4 mg Documented By: DEEPTI Ondansetron HCl (Ondansetron Hcl 4 Mg/2 Ml Vial) 4 mg IVPUSH ONCE PRN PRN Reason: Nausea and Vomiting Oxycodone HCl (Oxycodone Hcl Immed Release 5 Mg Tablet) 5 mg PO Q4H PRN PRN Reason: Pain, Moderate(Pain Scale 4-6) Last Admin: 04/21/23 20:07 Dose: 5 mg Documented By: JACINTA Oxycodone HCl (Oxycodone Hcl Immed Release 5 Mg Tablet) 10 mg PO Q4H PRN PRN Reason: Pain, Severe (Pain Scale 7-10) Pharmacy Consult (Consult Rx Perform Med Rec) 1 each MISCELLANE ONCE PRN PRN Reason: Consult order Pharmacy Consult (Consult Rx Vancomycin Dosing) 1 each MISCELLANE DAILY PRN PRN Reason: Consult order Sodium Chloride (0.9 % Sodium Chloride Flush 3 Ml Syringe) 3 ml IVFLUSH QSHIFT [facility] Last Admin: 04/22/23 08:10 Dose: 3 ml Documented By: DEEPTI Sodium Hypochlorite (Sodium Hypochlorite 0.25% 473 Ml Solution) 1 appl TOPICAL DAILY [facility] Last Admin: 04/22/23 09:40 Dose: Not Given Documented By: DEEPTI Non-Admin Reason: Changed by Surg. team Labs 04/22/23 05:57 04/22/23 05:57 Labs: Laboratory Results - last 24 hr 04/18/23 04/21/23 04/21/23 18:24 11:11 15:53 MCV MCH MCHC RDW Plt Count MPV Immature Gran % (Auto) Neut % (Auto) Lymph % (Auto) [place] % (Auto) Eos % (Auto) Baso % (Auto) Lymph # (Auto) [place] # (Auto) Eos # (Auto) Baso # (Auto) Abs Immat Gran (auto) Absolute Neuts (auto) Absolute Nucleated RBC Nucleated RBC % (auto) Smear Tech's Comments Smear Path Review SEE NOTE Anion Gap Estim Creat Clear Calc Estimated GFR POC Glucose 157 H 243 H Random Glucose Calcium Random Vancomycin 04/21/23 04/21/23 04/22/23 18:40 20:25 05:57 MCV 83.2 MCH 26.6 L MCHC 31.9 RDW 12.4 Plt Count 168 MPV 11.2 Immature Gran % (Auto) 3.7 H Neut % (Auto) 84.1 H Lymph % (Auto) 6.1 L [place] % (Auto) 5.1 Eos % (Auto) 0.7 Baso % (Auto) 0.3 Lymph # (Auto) 2.0 [place] # (Auto) 1.6 H Eos # (Auto) 0.2 Baso # (Auto) 0.1 Abs Immat Gran (auto) 1.19 H Absolute Neuts (auto) 27.1 H Absolute Nucleated RBC 0.000 Nucleated RBC % (auto) 0.0 Smear Tech's Comments VERIFIED Smear Path Review Anion Gap Estim Creat Clear Calc Estimated GFR POC Glucose 172 H Random Glucose Calcium Random Vancomycin 18.0 04/22/23 04/22/23 05:57 07:03 MCV MCH MCHC RDW Plt Count MPV Immature Gran % (Auto) Neut % (Auto) Lymph % (Auto) [place] % (Auto) Eos % (Auto) Baso % (Auto) Lymph # (Auto) [place] # (Auto) Eos # (Auto) Baso # (Auto) Abs Immat Gran (auto) Absolute Neuts (auto) Absolute Nucleated RBC Nucleated RBC % (auto) Smear Tech's Comments Smear Path Review Anion Gap 12 Estim Creat Clear Calc 62.4 Estimated GFR 43 POC Glucose 158 H Random Glucose 170 H Calcium 8.8 Random Vancomycin Microbiology Microbiology Results: Microbiology 04/19/23 14:46 Gram Stain - Final Toe Routine Culture - Final Strep agalactiae (Grp B) Assessment and Plan (1) Diabetic wet gangrene of the foot: Status: Acute (2) Hyperglycemia: Status: Acute (3) Osteomyelitis: Status: Acute (4) Sepsis: Status: Acute (5) Pseudohyponatremia: Status: Acute Plan Pt is a 42-year-old male with a PMH significant for?HTN, HLD, non insulin- dependent diabetes type 2, and CKD stage III who presents to the ED with?right foot pain, swelling, and redness, and discoloration of his 2nd toe, now s/p right 2nd toe amputation being treated with IV antibiotics and will require addl surgical debridement Sepsis secondary to gangrenous right toe/foot wound related to diabetes Met criteria with WBC of 35.2 and tacycardia. CRP of 27.75, ESR 97. Lactic acid wnl s/p right second toe amputation 04/19 wound culture growing group b strep given persistent leukocytosis of 30k (minimally improved) will continue IV Vanco and cefepime for now surgery following- will go to OR tomorrow 04/22 for further surgical debridement ID consult pending blood cultures negative to date continue local wound care per surgery rec. Acute Left foot osteo xray concerning for osteomyelitis of left foot - first distal phalanx continue abx as above ID consult pending - will likely need 6 weeks ertapenam Xca-bfeakbz-pozntlpiu diabetes type 2, with hyperglycemia- glucose control improving glucose of 529 on admission on glipizide at baseline, will hold HbA1c 10.7 pt non-compliant with diabetic diet or blood sugar monitoring started on Lantus 10U, uptitrate prn POCs improving Diabetic diet Hyponatremia primarily related to pseudohyponatremia from hyperglycemia Follow BMP CKD stage III SCr down to 1.75 - improved from baseline Follow BMP Acute hyponatremia replete, resolved follow BMP normoycytic anemia likely related to chronic dz and acute inflammation slight drop in H&H likely secondary to surgery, still above transfusion threshold follow CBC HLD Continue statin HTN bp stable- continue Holding lisinopril, resume as appropriate Full Code Attending:?Dr. perez DVT Prophylaxis:heparin patient requires ongoing inpatient hospitalization for management of gangrenous foot infection including acute surgical intervention as well as IV antibiotics and additional surgical debridement which cannot take place in lower level of care Time Spent With Patient Time: Total time managing care of this patient today ____ minutes. Quality Stroke Does the patient have a stroke diagnosis?: No VTE Prior VTE?: No VTE Risk Level:: Medical - moderate - high VTE Device Contraindication: Treatment Not Indicated VTE Drug Contraindication: N/A - Med Ordered
--- NOTE | 2023-04-22 10:58 | P.CDIM_ITS ---
PROVIDER RESPONSE TEXT: To clarify, the appropriate diagnosis supported by the clinical indicators: Acute QUERY TEXT: PHYSICIAN'S DOCUMENTATION REQUEST Date of Query: 04/22/2023 10:22 AM EDT Patient Name: SOLOMON NARANJO Admit Date: 04/19/2023 Dear Berta Valladares, A review of the medical record indicates additional documentation may be needed. Please review below and update the documentation accordingly. Clinical Indicators: Per Hospitalist Progress Note 04/21/23: Left foot osteo xray concerning for osteomyelitis of left foot - first distal phalanx continue abx as above ID consult pending Clarify which of the following accurately represents the acuity of the Osteomyelitis. Possible options might include: Acute Acute on chronic Compensated Chronic stable condition Remission Other (explain)Clinically unable to determine (explain)Thank you, Belinda Villanueva RN Use of terms such as suspected, likely, concern for, or probable (associated with a specific diagnosi s that is being evaluated, monitored, or treated as if it exists) are acceptable and can be coded in the inpatient se tting, when documented at the time of discharge. Please use your independent medical judgment in providing your response. THIS QUERY IS PART OF THE PERMANENT MEDICAL RECORD
[2023-04-22 11:18] LABS: Glucose, Whole Blood 167 mg/dL (60-115)
[2023-04-22] MEDS: oxyCODONE HCl Immed Release 5 MG TABLET PO (11:50)
--- NOTE | 2023-04-22 13:51 | P.PNVS_ITS ---
Subjective Subjective Date of Service: 04/22/23 Patient reports: no new complaints and feels better Interval history: Patient seen and examined. Events over the past 24 hours noted. Patient seems somewhat somnolent at the time of my examination. Family member was at bedside. In general denies any pain or significant discomfort. Now for routine follow- up. Physical Exam Vital Signs: Vital Signs: Last Vital Signs Temp 97.2 F 04/22/23 07:10 Pulse 98 04/22/23 07:10 Resp 18 04/22/23 07:10 BP 140/66 H 04/22/23 07:10 Pulse Ox 100 04/22/23 07:10 O2 Del Method Room Air 04/22/23 07:10 BMI result Body Mass Index 30.1 Const: General: cooperative, healthy appearing and no acute distress Orientation/consciousness: oriented to person, oriented to place and oriented to time HEENT: Head: Yes normal to inspection Neck: Carotids: no bruits Chest: Chest palpation & inspection: normal inspection of the chest Resp: Effort & Inspection: normal respiratory effort and able to speak in complete sentences Auscultation: clear to auscultation bilaterally Cardio: Rate: regular rate Heart sounds: S1 normal heart sound present and S2 normal heart sound present GI: Inspection: Yes normal to inspection Skin: Other: Right 2nd toe amputation site nonhealing boggy General skin exam: no rashes or lesions noted Wounds: amputation site Neuro: General: oriented to person, oriented to place, oriented to time and CN's II-XI intact bilaterally Extrem: General: Yes normal to inspection, Yes full ROM and Yes no clubbing, cyanosis or edema Psych: Appearance: grossly normal and well kempt Speech and movement: Normal speech and movement present Affect: normal affect Progress Note: A&P Assessment and plan (1) Diabetic ulcer of right foot: Status: Acute Assessment and Plan: In short patient has nonhealing right diabetic foot ulcer. Arterial status is within normal limits. Unfortunately it does penetrate down to the metatarsal head. In addition the 3rd toe does look dusky. Unfortunately the patient may end up with a transmetatarsal amputation if not a BKA. Scheduled for debridement with General surgery for tomorrow. We will peripherally follow with you. Thank you for allowing us to assist in his care Time Spent With Patient Time: Total time managing care of this patient today ____ minutes. Procedures Date of Service Date of Service: 04/22/23 Quality Stroke Does the patient have a stroke diagnosis?: No VTE Prior VTE?: No VTE Risk Level:: Medical - moderate - high VTE Device Contraindication: Treatment Not Indicated VTE Drug Contraindication: N/A - Med Ordered
[2023-04-22 15:18] VITALS: BP 133/81; PULSE 98; RESP 20; TEMP 36.4; O2SAT 100
--- NOTE | 2023-04-22 15:46 | P.CNID_ITS ---
History of Present Illness Data of Consult Service Date: 04/22/23 Requesting physician: Berta Valladares Primary Care Provider: [facility] HPI Reason for consult: redness,ulcer right second toe He presents with discoloration right second toe for two days. He has had second toe amputation and going for foot debridement tomorrow. He has Group B strep so far. Review of Systems Review of Systems: Yes all other systems are reviewed and are negative [facility] Past Medical History Medical History Diabetes HTN (hypertension) Renal failure Sleep apnea Family History Family history: reviewed and not pertinent Social History Social History Household Members: Family Housing: Apartment Do you presently have visiting nurse or other home services: No Alcohol intake: current Alcohol intake frequency: holidays/special occasions only Patient Tobacco Use Status: Former Tobacco user service: No Meds Allergies Allergy/AdvReac Type Severity Reaction Status Date / Time No Known Allergies Allergy Verified 11/26/20 14:08 [No Known Allergies*] Active Medications: Current Medications Acetaminophen (Acetaminophen 325 Mg Tablet) 650 mg PO Q6H PRN PRN Reason: Pain, Mild (Pain Scale 1-3) Last Admin: 04/20/23 14:02 Dose: 650 mg Atorvastatin Calcium (Atorvastatin Calcium 40 Mg Tablet) 40 mg PO BEDTIME [facility] Last Admin: 04/21/23 20:07 Dose: 40 mg Dextrose (Dextrose 50 % 25 Gm/50 Ml Syringe) 25 gm IVPUSH Q15M PRN; Protocol PRN Reason: per Hypoglycemia Standing Ord. Docusate Sodium (Docusate Sodium 100 Mg Capsule) 100 mg PO DAILY PRN PRN Reason: Constipation Glucose (Glucose Gel 15 Gm Gel..Gram.) 15 gm PO Q15M PRN; Protocol PRN Reason: per Hypoglycemia Standing Ord. Heparin Sodium (Porcine) (Heparin Sodium,Porcine 5,000 Unit/Ml Vial) 5,000 unit SUBCUT Q8H [facility] Last Admin: 04/22/23 15:26 Dose: 5,000 unit Cefepime HCl 2 gm/ Sodium (Chloride) 50 mls @ 100 mls/hr IV Q24H [facility] Last Infusion: 04/21/23 22:56 Dose: Infused Vancomycin HCl 750 mg/ Sodium (Chloride) 265 mls @ 265 mls/hr IV Q12H [facility] Last Infusion: 04/22/23 10:30 Dose: Infused Insulin Glargine (Insulin Glargine,Hum.Rec.Anlog 100 Unit/Ml 10 Ml Vial) 10 unit SUBCUT DAILY [facility] Last Admin: 04/20/23 08:15 Dose: 10 unit Insulin Human Lispro (Insulin Lispro 100 Unit/Ml 3 Ml Vial) 0 unit SUBCUT QIDACHS [facility]; Protocol Last Admin: 04/22/23 12:24 Dose: Not Given Lisinopril (Lisinopril 20 Mg Tablet) 20 mg PO DAILY [facility]; Protocol Last Admin: 04/19/23 08:08 Dose: 20 mg Melatonin (Melatonin 3 Mg Tablet) 6 mg PO BEDTIME PRN PRN Reason: insomnia Multivitamins/Vitamin C (Multivitamin Tablet) 1 tab PO DAILY [facility] Last Admin: 04/22/23 08:08 Dose: 1 tab Omeprazole (Omeprazole 20 Mg Capsule.Dr) 20 mg PO DAILY@0630 [facility] Last Admin: 04/22/23 06:07 Dose: 20 mg Ondansetron HCl (Ondansetron Hcl 4 Mg/2 Ml Vial) 4 mg IVPUSH Q8H PRN PRN Reason: Nausea and Vomiting Last Admin: 04/21/23 12:20 Dose: 4 mg Ondansetron HCl (Ondansetron Hcl 4 Mg/2 Ml Vial) 4 mg IVPUSH ONCE PRN PRN Reason: Nausea and Vomiting Oxycodone HCl (Oxycodone Hcl Immed Release 5 Mg Tablet) 5 mg PO Q4H PRN PRN Reason: Pain, Moderate(Pain Scale 4-6) Last Admin: 04/22/23 11:50 Dose: 5 mg Oxycodone HCl (Oxycodone Hcl Immed Release 5 Mg Tablet) 10 mg PO Q4H PRN PRN Reason: Pain, Severe (Pain Scale 7-10) Pharmacy Consult (Consult Rx Perform Med Rec) 1 each MISCELLANE ONCE PRN PRN Reason: Consult order Pharmacy Consult (Consult Rx Vancomycin Dosing) 1 each MISCELLANE DAILY PRN PRN Reason: Consult order Sodium Chloride (0.9 % Sodium Chloride Flush 3 Ml Syringe) 3 ml IVFLUSH QSHIFT [facility] Last Admin: 04/22/23 08:10 Dose: 3 ml Sodium Hypochlorite (Sodium Hypochlorite 0.25% 473 Ml Solution) 1 appl TOPICAL DAILY [facility] Last Admin: 04/22/23 09:40 Dose: Not Given Home Medications Medication Instructions Recorded Confirmed Last Taken Type lisinopril 20 mg tablet 20 mg PO DAILY 11/26/20 04/18/23 04/17/23 History atorvastatin 40 mg tablet 40 mg PO BEDTIME 04/18/23 04/18/23 04/17/23 History glipizide 10 mg tablet, extended 10 mg PO DAILY 04/18/23 04/18/23 04/17/23 History release 24 hr melatonin 5 mg tablet 5 mg PO BEDTIME PRN insomnia 04/18/23 04/18/23 04/17/23 History multivitamin 1 tab PO DAILY 04/18/23 04/18/23 04/17/23 History omeprazole 20 mg capsule,delayed 20 mg PO DAILY@0630 04/18/23 04/18/23 04/17/23 History release Physical Exam Vital Signs: Vital Signs: Last Vital Signs Temp 97.6 F 04/22/23 15:18 Pulse 98 04/22/23 15:18 Resp 20 04/22/23 15:18 BP 133/81 04/22/23 15:18 Pulse Ox 100 04/22/23 15:18 O2 Del Method Room Air 04/22/23 15:18 BMI result Body Mass Index 30.1 Const: General: cooperative HEENT: Head: Yes normal to inspection Face and sinus: Yes normal facial exam Mouth: Normal oral and palatal mucosa present Teeth and gingiva: dentition normal Eyes: General: appearance normal, both eyes and all related structures Pupils: Equal, round and reactive pupils present Resp: Effort & Inspection: normal respiratory effort Cardio: Rate: regular rate Rhythm: regular rhythm GI: Palpation (GI): Soft to palpation and nontender : General: Yes no CVA tenderness Back/Spine/Pelvis: Back: no CVA tenderness Skin: General skin exam: no rashes or lesions noted Neuro: General: moves all extremities Cranial nerves: Yes Equal, round and reactive pupils present Extrem: Other: neuropathy foot postop wrap Psych: Appearance: grossly normal Results Labs 04/22/23 05:57 04/22/23 05:57 Labs: Short CBC 04/22/23 Range/Units 05:57 WBC 32.2 H* (4.8-10.8) X10*3/uL Hgb 9.8 L (14.0-18.0) g/dl Hct 30.7 L (42.0-52.0) % Plt Count 168 (160-400) X10*3/uL BMP 04/22/23 05:57 Sodium 131 L Potassium 3.8 Chloride 103 Carbon Dioxide 20 L BUN 18 H Creatinine 1.75 H Calcium 8.8 Microbiology Microbiology Results: Microbiology 04/19/23 14:46 Toe Gram Stain - Final 04/19/23 14:46 Toe Routine Culture - Final Strep agalactiae (Grp B) 04/18/23 18:24 Blood - Venous Blood Culture - Preliminary No growth after 48 hours. 04/18/23 18:24 Blood - Venous Blood Culture - Preliminary No growth after 48 hours. Assessment and Plan (1) Diabetic ulcer of right foot: Status: Acute He has had surgery of area but still some OM possibly remaining in metatarsals for example due to extent of cellulitis and local tissue destruction (2) Osteomyelitis: Status: Acute (3) Diabetic wet gangrene of the foot: Status: Acute Plan Would give IV Ertapenem for six weeks. Time Spent With Patient Time: Total time managing care of this patient today ____ minutes.
[2023-04-22 16:07] LABS: Glucose, Whole Blood 174 mg/dL (60-115)
[2023-04-22] MEDS: Morphine Sulfate 2 MG/ML CARTRIDGE IVPUSH (16:17)
[2023-04-22 19:31] LABS: Vancomycin Random 19.7 mcg/mL (15-20)
[2023-04-22 19:47] LABS: Glucose, Whole Blood 177 mg/dL (60-115)
[2023-04-22] MEDS: oxyCODONE HCl Immed Release 5 MG TABLET 10 MG PO (20:51)
[2023-04-22] MEDS: Atorvastatin Calcium 40 MG TABLET PO (20:51)
[2023-04-22] MEDS: vancomycin HCL 500 MG in 0.9 % Sodium Chloride 100 ML 110 MG IV (20:53)
[2023-04-22] MEDS: cefEPime HCl 2 GM in 0.9 % Sodium Chloride 50 ML IV (22:59)
[2023-04-22 23:11] VITALS: BP 168/77; PULSE 92; RESP 16; TEMP 36.3; O2SAT 100
[2023-04-23] VITALS (11 sets, daily range): BP systolic 127–149; BP diastolic 54–79; PULSE 82–104; RESP 16–21; TEMP 36.3–37.3; O2SAT 97–100
[2023-04-23 06:54] LABS: Hemoglobin 10.2 g/dl (14.0-18.0); Mean Corpuscular HGB Conc 32.9 g/dl (31.0-36.0); Mean Corpuscular Hemoglobin 27.6 pg (27.0-33.0); PLT CLUMP 1; Red Blood Count 3.69 X10*6/uL (4.60-5.80); Red Cell Distribution Width 12.5 % (11.0-16.0); White Blood Count 26.2 X10*3/uL (4.8-10.8)
[2023-04-23 07:08] LABS: Anion Gap 16 (12-20); Blood Urea Nitrogen 22 mg/dL (9-16); Calcium 8.7 mg/dL (8.4-10.2); Carbon Dioxide 18 mmol/L (22-29); Chloride 102 mmol/L (96-108); Estimated Glomerular Filt Rate 42; Glucose Random 175 mg/dL (60-115); Potassium 3.5 mmol/L (3.3-5.1); Sodium 132 mmol/L (135-145)
[2023-04-23] MEDS: vancomycin HCL 500 MG in 0.9 % Sodium Chloride 100 ML 110 MG IV (07:09)
[2023-04-23 07:17] LABS: Glucose, Whole Blood 164 mg/dL (60-115)
[2023-04-23] MEDS: Multivitamin TABLET 1 TAB PO (07:19)
[2023-04-23] MEDS: oxyCODONE HCl Immed Release 5 MG TABLET 10 MG PO ×3 (07:19→21:21)
[2023-04-23 07:42] LABS: Band Neutrophils Percent 10 % (3-5); Eosinophils Absolute Manual 0.3 X10*3/uL (0.0-0.4); Eosinophils Percent Manual 1 % (0-4); Lymphocytes Absolute Manual 1.8 X10*3/uL (1.2-4.9); Lymphocytes Percent Manual 7 % (20-40); Metamyelocytes Absolute 0.3 X10*3/uL; Metamyelocytes Percent 1 %; Monocytes Absolute Manual 1.3 X10*3/uL (0.1-1.2); Monocytes Percent Manual 5 % (2-11); Neutrophils Absolute Manual 22.5 X10*3/uL (2.0-8.3); Neutrophils Percent Manual 76 % (45-73)
[2023-04-23 07:44] LABS: RBC Morphology NORMAL
[2023-04-23 07:45] LABS: Hypochromasia 1+ (5-14) /OIF; Microcytosis 1+ (5-14) /OIF
[2023-04-23 07:46] LABS: Baso%MD 0.4 %; Eos%MD 0.6 %; IG%MD 5.1 %; Lymph%MD 8.4 %; Mean Platelet Volume 11.5 fL (9.4-12.4); Mono%MD 4.7 %; Neut%MD 80.8 %; Platelet Count 183 X10*3/uL (160-400)
[2023-04-23 08:06] LABS: Platelet Estimate NORMAL (NORMAL); Platelet Morphology Comment NORMAL
--- NOTE | 2023-04-23 08:18 | PC.NURSE ---
PA notified Pt states 10mg of Oxy did not change his pain level.
[2023-04-23] MEDS: Cyclobenzaprine HCl 5 MG TABLET PO (08:30)
[2023-04-23] MEDS: Lidocaine 4 % Patch ADH..PATCH 1 PATCH TRANSDERMA (08:30)
[2023-04-23 11:19] LABS: Glucose, Whole Blood 187 mg/dL (60-115)
--- NOTE | 2023-04-23 12:05 | HO.PM.IMPN ---
Subjective Subjective Date of Service: 04/23/23 Interval History: Seen and examined this morning Interval history: Felling slightly better. WBC trending down. Afebrile, VSS. Reports midline and left sided low back pain. No radiation, injury Review of Systems Review of Systems: Yes all other systems are reviewed and are negative Physical Exam Vital Signs: Vital Signs: Last Vital Signs Temp 98.9 F 04/23/23 11:54 Pulse 98 04/23/23 11:54 Resp 16 04/23/23 11:54 BP 144/54 H 04/23/23 11:54 Pulse Ox 99 04/23/23 11:54 O2 Del Method Room Air 04/23/23 11:54 BMI result Body Mass Index 30.1 Constitutional - Awake and Alert, No apparent distress Eyes - PERRLA, EOMI Cardiovascular - S1S2, RRR, No edema Respiratory - Normal lung expansion, Normal respiratory effort, No respiratory distress, CTA bilaterally Extremities - no calf tenderness bilaterally, no swelling. Post-op bandage in place MSK- midline ttp at level of about L4-L5 with left-sided paraspinal tenderness to palpation Skin - Warm/Dry Neurological - Alert & oriented x3 Psychological - Appropriate affect Objective Data Active Medications Acetaminophen (Acetaminophen 325 Mg Tablet) 650 mg PO Q6H PRN PRN Reason: Pain, Mild (Pain Scale 1-3) Last Admin: 04/20/23 14:02 Dose: 650 mg Documented By: AMINATA Atorvastatin Calcium (Atorvastatin Calcium 40 Mg Tablet) 40 mg PO BEDTIME LYSSA Last Admin: 04/22/23 20:51 Dose: 40 mg Documented By: ANDRESSA Cyclobenzaprine HCl (Cyclobenzaprine Hcl 5 Mg Tablet) 5 mg PO TID PRN PRN Reason: back spasm Last Admin: 04/23/23 08:30 Dose: 5 mg Documented By: MAVIS Dextrose (Dextrose 50 % 25 Gm/50 Ml Syringe) 25 gm IVPUSH Q15M PRN; Protocol PRN Reason: per Hypoglycemia Standing Ord. Docusate Sodium (Docusate Sodium 100 Mg Capsule) 100 mg PO DAILY PRN PRN Reason: Constipation Glucose (Glucose Gel 15 Gm Gel..Gram.) 15 gm PO Q15M PRN; Protocol PRN Reason: per Hypoglycemia Standing Ord. Heparin Sodium (Porcine) (Heparin Sodium,Porcine 5,000 Unit/Ml Vial) 5,000 unit SUBCUT Q8H COUNTS INCLUDE 234 BEDS AT THE [facility] Last Admin: 04/23/23 06:27 Dose: Not Given Documented By: ANGEL Non-Admin Reason: debridement planned Cefepime HCl 2 gm/ Sodium (Chloride) 50 mls @ 100 mls/hr IV Q24H COUNTS INCLUDE 234 BEDS AT THE [facility] Last Infusion: 04/22/23 23:30 Dose: 0 mls/hr Documented By: ANGEL Vancomycin HCl 500 mg/ Sodium (Chloride) 110 mls @ 110 mls/hr IV Q12H COUNTS INCLUDE 234 BEDS AT THE [facility] Last Infusion: 04/23/23 08:17 Dose: 0 mls/hr Documented By: MAVIS Insulin Glargine (Insulin Glargine,Hum.Rec.Anlog 100 Unit/Ml 10 Ml Vial) 10 unit SUBCUT DAILY COUNTS INCLUDE 234 BEDS AT THE [facility] Last Admin: 04/20/23 08:15 Dose: 10 unit Documented By: AMINATA Insulin Human Lispro (Insulin Lispro 100 Unit/Ml 3 Ml Vial) 0 unit SUBCUT QIDACHS COUNTS INCLUDE 234 BEDS AT THE [facility]; Protocol Last Admin: 04/23/23 11:06 Dose: Not Given Documented By: MAVIS Non-Admin Reason: going to OR Lidocaine (Lidocaine 4 % Patch Adh..Patch) 1 patch TRANSDERMA DAILY COUNTS INCLUDE 234 BEDS AT THE [facility]; Protocol Last Admin: 04/23/23 08:30 Dose: 1 patch Documented By: MAVIS Lisinopril (Lisinopril 20 Mg Tablet) 20 mg PO DAILY COUNTS INCLUDE 234 BEDS AT THE [facility]; Protocol Last Admin: 04/19/23 08:08 Dose: 20 mg Documented By: KAYLA Melatonin (Melatonin 3 Mg Tablet) 6 mg PO BEDTIME PRN PRN Reason: insomnia Multivitamins/Vitamin C (Multivitamin Tablet) 1 tab PO DAILY COUNTS INCLUDE 234 BEDS AT THE [facility] Last Admin: 04/23/23 07:19 Dose: 1 tab Documented By: MAVIS Omeprazole (Omeprazole 20 Mg Capsule.Dr) 20 mg PO DAILY@0630 COUNTS INCLUDE 234 BEDS AT THE [facility] Last Admin: 04/23/23 05:55 Dose: Not Given Documented By: ANGEL Non-Admin Reason: NPO Ondansetron HCl (Ondansetron Hcl 4 Mg/2 Ml Vial) 4 mg IVPUSH Q8H PRN PRN Reason: Nausea and Vomiting Last Admin: 04/21/23 12:20 Dose: 4 mg Documented By: HO.MOHAMER Ondansetron HCl (Ondansetron Hcl 4 Mg/2 Ml Vial) 4 mg IVPUSH ONCE PRN PRN Reason: Nausea and Vomiting Oxycodone HCl (Oxycodone Hcl Immed Release 5 Mg Tablet) 5 mg PO Q4H PRN PRN Reason: Pain, Moderate(Pain Scale 4-6) Last Admin: 04/22/23 11:50 Dose: 5 mg Documented By: DEEPTI Oxycodone HCl (Oxycodone Hcl Immed Release 5 Mg Tablet) 10 mg PO Q4H PRN PRN Reason: Pain, Severe (Pain Scale 7-10) Last Admin: 04/23/23 07:19 Dose: 10 mg Documented By: MAVIS Pharmacy Consult (Consult Rx Perform Med Rec) 1 each MISCELLANE ONCE PRN PRN Reason: Consult order Pharmacy Consult (Consult Rx Vancomycin Dosing) 1 each MISCELLANE DAILY PRN PRN Reason: Consult order Sodium Chloride (0.9 % Sodium Chloride Flush 3 Ml Syringe) 3 ml IVFLUSH QSHIFT COUNTS INCLUDE 234 BEDS AT THE [facility] Last Admin: 04/23/23 07:12 Dose: Not Given Documented By: MAVIS Non-Admin Reason: IV Running Sodium Hypochlorite (Sodium Hypochlorite 0.25% 473 Ml Solution) 1 appl TOPICAL DAILY LYSSA Last Admin: 04/23/23 07:18 Dose: Not Given Documented By: MAVIS Non-Admin Reason: going for surgical sylvia Labs 04/23/23 05:52 04/23/23 05:52 Labs: Laboratory Results - last 24 hr 04/22/23 04/22/23 04/22/23 16:03 18:31 19:24 MCV MCH MCHC RDW Plt Count MPV Immature Gran % (Auto) Neut % (Auto) Lymph % (Auto) [place] % (Auto) Eos % (Auto) Baso % (Auto) Lymph # (Auto) [place] # (Auto) Eos # (Auto) Baso # (Auto) Abs Immat Gran (auto) Absolute Neuts (auto) Absolute Nucleated RBC Nucleated RBC % (auto) Neutrophils % (Manual) Band Neutrophils % Lymphocytes % (Manual) Monocytes % (Manual) Eosinophils % (Manual) Metamyelocytes % Abs Neuts (Manual) Lymphocytes # (Manual) Monocytes # (Manual) Eosinophils # (Manual) Metamyelocytes # Platelet Estimate Plt Morphology Comment RBC Morphology Hypochromasia Microcytosis Anion Gap Estim Creat Clear Calc Estimated GFR POC Glucose 174 H 177 H Random Glucose Calcium Random Vancomycin 19.7 04/23/23 04/23/23 04/23/23 05:52 05:52 07:06 MCV 84.0 MCH 27.6 MCHC 32.9 RDW 12.5 Plt Count 183 MPV 11.5 Immature Gran % (Auto) Cancelled Neut % (Auto) Cancelled Lymph % (Auto) Cancelled [place] % (Auto) Cancelled Eos % (Auto) Cancelled Baso % (Auto) Cancelled Lymph # (Auto) Cancelled [place] # (Auto) Cancelled Eos # (Auto) Cancelled Baso # (Auto) Cancelled Abs Immat Gran (auto) Cancelled Absolute Neuts (auto) Cancelled Absolute Nucleated RBC 0.000 Nucleated RBC % (auto) 0.0 Neutrophils % (Manual) 76 H Band Neutrophils % 10 H Lymphocytes % (Manual) 7 L Monocytes % (Manual) 5 Eosinophils % (Manual) 1 Metamyelocytes % 1 Abs Neuts (Manual) 22.5 H Lymphocytes # (Manual) 1.8 Monocytes # (Manual) 1.3 H Eosinophils # (Manual) 0.3 Metamyelocytes # 0.3 Platelet Estimate NORMAL Plt Morphology Comment NORMAL RBC Morphology NORMAL Hypochromasia 1+ (5-14) Microcytosis 1+ (5-14) Anion Gap 16 Estim Creat Clear Calc 62.0 Estimated GFR 42 POC Glucose 164 H Random Glucose 175 H Calcium 8.7 Random Vancomycin 04/23/23 11:10 MCV MCH MCHC RDW Plt Count MPV Immature Gran % (Auto) Neut % (Auto) Lymph % (Auto) [place] % (Auto) Eos % (Auto) Baso % (Auto) Lymph # (Auto) [place] # (Auto) Eos # (Auto) Baso # (Auto) Abs Immat Gran (auto) Absolute Neuts (auto) Absolute Nucleated RBC Nucleated RBC % (auto) Neutrophils % (Manual) Band Neutrophils % Lymphocytes % (Manual) Monocytes % (Manual) Eosinophils % (Manual) Metamyelocytes % Abs Neuts (Manual) Lymphocytes # (Manual) Monocytes # (Manual) Eosinophils # (Manual) Metamyelocytes # Platelet Estimate Plt Morphology Comment RBC Morphology Hypochromasia Microcytosis Anion Gap Estim Creat Clear Calc Estimated GFR POC Glucose 187 H Random Glucose Calcium Random Vancomycin Assessment and Plan (1) Diabetic wet gangrene of the foot: Status: Acute (2) Hyperglycemia: Status: Acute (3) Osteomyelitis: Status: Acute (4) Sepsis: Status: Acute (5) Pseudohyponatremia: Status: Acute Plan Pt is a 42-year-old male with a PMH significant for?HTN, HLD, non insulin-dependent diabetes type 2, and CKD stage III who presents to the ED with?right foot pain, swelling, and redness, and discoloration of his 2nd toe, now s/p right 2nd toe amputation being treated with IV antibiotics and will undergo addl surgical debridement today Sepsis secondary to gangrenous right toe/foot wound related to diabetes Met criteria with WBC of 35.2 and tacycardia. CRP of 27.75, ESR 97. Lactic acid wnl s/p right second toe amputation 04/19 wound culture growing group b strep given persistent leukocytosis of 30k (minimally improved) will continue IV Vanco and cefepime for now surgery following blood cultures negative continue local wound care per surgery rec. Surgical debridement OR 04/23 Acute Left foot osteo xray concerning for osteomyelitis of left foot - first distal phalanx continue abx as above ID input appreciated- will likely need 6 weeks ertapenam [id number] diabetes type 2, with hyperglycemia- glucose control improving glucose of 529 on admission on glipizide at baseline, will hold HbA1c 10.7 pt non-compliant with diabetic diet or blood sugar monitoring started on Lantus 10U, uptitrate prn POCs improving Diabetic diet Hyponatremia primarily related to pseudohyponatremia from hyperglycemia Follow BMP CKD stage III SCr down to 1.75 - improved from baseline Follow BMP Acute hyponatremia replete, resolved follow BMP normoycytic anemia likely related to chronic dz and acute inflammation slight drop in H&H likely secondary to surgery, still above transfusion threshold follow CBC HLD Continue statin HTN bp stable- continue Holding lisinopril, resume as appropriate Full Code Attending:?Dr. perez DVT Prophylaxis:heparin patient requires ongoing inpatient hospitalization for management of gangrenous foot infection including acute surgical intervention as well as IV antibiotics and additional surgical debridement which cannot take place in lower level of care Time Spent With Patient Time: Total time managing care of this patient today ____ minutes. Quality Stroke Does the patient have a stroke diagnosis?: No VTE Prior VTE?: No VTE Risk Level:: Medical - moderate - high VTE Device Contraindication: Treatment Not Indicated VTE Drug Contraindication: N/A - Med Ordered
--- NOTE | 2023-04-23 13:16 | HO.ANESPROP2 ---
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) Hyperglycemia (Acute) Osteomyelitis (Acute) Sepsis (Acute) Pseudohyponatremia (Acute) Past Medical History Medical History Diabetes HTN (hypertension) Renal failure Sleep apnea Family History Family history of problems with anesthesia: No Surgical History History of Problems with Anesthesia: No Social History Social History Household Members: Family Housing: Apartment Do you presently have visiting nurse or other home services: No Alcohol intake: current Alcohol intake frequency: holidays/special occasions only Patient Tobacco Use Status: Former Tobacco user service: No Meds Allergies Allergy/AdvReac Type Severity Reaction Status Date / Time No Known Allergies Allergy Verified 11/26/20 14:08 [No Known Allergies*] Active Medications: Current Medications Acetaminophen (Acetaminophen 325 Mg Tablet) 650 mg PO Q6H PRN PRN Reason: Pain, Mild (Pain Scale 1-3) Last Admin: 04/20/23 14:02 Dose: 650 mg Atorvastatin Calcium (Atorvastatin Calcium 40 Mg Tablet) 40 mg PO BEDTIME LYSSA Last Admin: 04/22/23 20:51 Dose: 40 mg Cyclobenzaprine HCl (Cyclobenzaprine Hcl 5 Mg Tablet) 5 mg PO TID PRN PRN Reason: back spasm Last Admin: 04/23/23 08:30 Dose: 5 mg Dextrose (Dextrose 50 % 25 Gm/50 Ml Syringe) 25 gm IVPUSH Q15M PRN; Protocol PRN Reason: per Hypoglycemia Standing Ord. Docusate Sodium (Docusate Sodium 100 Mg Capsule) 100 mg PO DAILY PRN PRN Reason: Constipation Glucose (Glucose Gel 15 Gm Gel..Gram.) 15 gm PO Q15M PRN; Protocol PRN Reason: per Hypoglycemia Standing Ord. Heparin Sodium (Porcine) (Heparin Sodium,Porcine 5,000 Unit/Ml Vial) 5,000 unit SUBCUT Q8H [facility] Last Admin: 04/23/23 06:27 Dose: Not Given Cefepime HCl 2 gm/ Sodium (Chloride) 50 mls @ 100 mls/hr IV Q24H LYSSA Last Infusion: 04/22/23 23:30 Dose: Infused Vancomycin HCl 500 mg/ Sodium (Chloride) 110 mls @ 110 mls/hr IV Q12H [facility] Last Infusion: 04/23/23 08:17 Dose: Infused Insulin Glargine (Insulin Glargine,Hum.Rec.Anlog 100 Unit/Ml 10 Ml Vial) 10 unit SUBCUT DAILY [facility] Last Admin: 04/20/23 08:15 Dose: 10 unit Insulin Human Lispro (Insulin Lispro 100 Unit/Ml 3 Ml Vial) 0 unit SUBCUT QIDACHS [facility]; Protocol Last Admin: 04/23/23 11:06 Dose: Not Given Lidocaine (Lidocaine 4 % Patch Adh..Patch) 1 patch TRANSDERMA DAILY [facility]; Protocol Last Admin: 04/23/23 08:30 Dose: 1 patch Lisinopril (Lisinopril 20 Mg Tablet) 20 mg PO DAILY [facility]; Protocol Last Admin: 04/19/23 08:08 Dose: 20 mg Melatonin (Melatonin 3 Mg Tablet) 6 mg PO BEDTIME PRN PRN Reason: insomnia Multivitamins/Vitamin C (Multivitamin Tablet) 1 tab PO DAILY [facility] Last Admin: 04/23/23 07:19 Dose: 1 tab Omeprazole (Omeprazole 20 Mg Capsule.Dr) 20 mg PO DAILY@0630 [facility] Last Admin: 04/23/23 05:55 Dose: Not Given Ondansetron HCl (Ondansetron Hcl 4 Mg/2 Ml Vial) 4 mg IVPUSH Q8H PRN PRN Reason: Nausea and Vomiting Last Admin: 04/21/23 12:20 Dose: 4 mg Ondansetron HCl (Ondansetron Hcl 4 Mg/2 Ml Vial) 4 mg IVPUSH ONCE PRN PRN Reason: Nausea and Vomiting Oxycodone HCl (Oxycodone Hcl Immed Release 5 Mg Tablet) 5 mg PO Q4H PRN PRN Reason: Pain, Moderate(Pain Scale 4-6) Last Admin: 04/22/23 11:50 Dose: 5 mg Oxycodone HCl (Oxycodone Hcl Immed Release 5 Mg Tablet) 10 mg PO Q4H PRN PRN Reason: Pain, Severe (Pain Scale 7-10) Last Admin: 04/23/23 07:19 Dose: 10 mg Pharmacy Consult (Consult Rx Perform Med Rec) 1 each MISCELLANE ONCE PRN PRN Reason: Consult order Pharmacy Consult (Consult Rx Vancomycin Dosing) 1 each MISCELLANE DAILY PRN PRN Reason: Consult order Sodium Chloride (0.9 % Sodium Chloride Flush 3 Ml Syringe) 3 ml IVFLUSH QSHIFT [facility] Last Admin: 04/23/23 07:12 Dose: Not Given Sodium Hypochlorite (Sodium Hypochlorite 0.25% 473 Ml Solution) 1 appl TOPICAL DAILY [facility] Last Admin: 04/23/23 07:18 Dose: Not Given Home Medications Medication Instructions Recorded Confirmed Last Taken Type lisinopril 20 mg tablet 20 mg PO DAILY 11/26/20 04/18/23 04/17/23 History atorvastatin 40 mg tablet 40 mg PO BEDTIME 04/18/23 04/18/23 04/17/23 History glipizide 10 mg tablet, extended 10 mg PO DAILY 04/18/23 04/18/23 04/17/23 History release 24 hr melatonin 5 mg tablet 5 mg PO BEDTIME PRN insomnia 04/18/23 04/18/23 04/17/23 History multivitamin 1 tab PO DAILY 04/18/23 04/18/23 04/17/23 History omeprazole 20 mg capsule,delayed 20 mg PO DAILY@0630 04/18/23 04/18/23 04/17/23 History release Exam Exam Date and Time: April 23, 2023 1316 Height,Weight and Vital Signs: Height 5 ft 10 in Weight 95.254 kg Last Vital Signs Temp 98.9 F 04/23/23 11:54 Pulse 98 04/23/23 11:54 Resp 16 04/23/23 11:54 BP 144/54 H 04/23/23 11:54 Pulse Ox 99 04/23/23 11:54 O2 Del Method Room Air 04/23/23 11:54 Pertinent Lab Results Pertinent Lab Results: Laboratory Tests 04/18/23 04/18/23 04/18/23 18:24 18:24 18:24 WBC 35.2 H* RBC 3.70 L Hgb 10.1 L Hct 30.8 L MCV 83.2 MCH 27.3 MCHC 32.8 RDW 12.3 Plt Count 265 MPV 12.2 Immature Gran % (Auto) 2.1 H Neut % (Auto) 90.1 H Lymph % (Auto) 2.8 L Charles % (Auto) 4.7 Eos % (Auto) 0.1 Baso % (Auto) 0.2 Lymph # (Auto) 1.0 L Charles # (Auto) 1.7 H Eos # (Auto) 0.1 Baso # (Auto) 0.1 Abs Immat Gran (auto) 0.73 H Absolute Neuts (auto) 31.7 H Absolute Nucleated RBC 0.000 Nucleated RBC % (auto) 0.0 Neutrophils % (Manual) Band Neutrophils % Lymphocytes % (Manual) Monocytes % (Manual) Eosinophils % (Manual) Metamyelocytes % Abs Neuts (Manual) Lymphocytes # (Manual) Monocytes # (Manual) Eosinophils # (Manual) Metamyelocytes # Platelet Estimate Plt Morphology Comment RBC Morphology Hypochromasia Microcytosis Smear Tech's Comments VERIFIED Smear Path Review SEE NOTE ESR VBG pH VBG pCO2 VBG pO2 VBG HCO3 VBG O2 Saturation VBG Base Excess Sodium 118 L* Potassium 4.2 Chloride 89 L Carbon Dioxide 17 L Anion Gap 16 BUN 32 H Creatinine 2.81 H Estim Creat Clear Calc 38.8 Estimated GFR 25 POC Glucose Random Glucose 529 H* Estimat Average Glucose Hemoglobin A1c % Lactic Acid 1.6 Calcium 8.8 D Phosphorus 2.7 Magnesium 2.0 Total Bilirubin 0.3 Direct Bilirubin 0.2 AST 25 ALT 11 Alkaline Phosphatase 175 H C-Reactive Protein 27.75 H Total Protein 7.5 Albumin 2.3 L Urine Color Urine Appearance Urine pH Ur Specific Story Urine Protein Urine Glucose (UA) Urine Ketones Urine Blood Urine Nitrite Ur Leukocyte Esterase Urine RBC Urine WBC Ur Squamous Epith Cells Urine Bacteria Hyaline Casts Random Vancomycin B-Hydroxybutyrate 0.04 H 04/18/23 04/18/23 04/18/23 18:24 20:44 21:11 WBC RBC Hgb Hct MCV MCH MCHC RDW Plt Count MPV Immature Gran % (Auto) Neut % (Auto) Lymph % (Auto) Charles % (Auto) Eos % (Auto) Baso % (Auto) Lymph # (Auto) Charles # (Auto) Eos # (Auto) Baso # (Auto) Abs Immat Gran (auto) Absolute Neuts (auto) Absolute Nucleated RBC Nucleated RBC % (auto) Neutrophils % (Manual) Band Neutrophils % Lymphocytes % (Manual) Monocytes % (Manual) Eosinophils % (Manual) Metamyelocytes % Abs Neuts (Manual) Lymphocytes # (Manual) Monocytes # (Manual) Eosinophils # (Manual) Metamyelocytes # Platelet Estimate Plt Morphology Comment RBC Morphology Hypochromasia Microcytosis Smear Tech's Comments Smear Path Review ESR VBG pH 7.40 VBG pCO2 45 VBG pO2 33 VBG HCO3 29 H VBG O2 Saturation 55.0 VBG Base Excess 3.8 Sodium Potassium Chloride Carbon Dioxide Anion Gap BUN Creatinine Estim Creat Clear Calc Estimated GFR POC Glucose Random Glucose Estimat Average Glucose 260 Hemoglobin A1c % 10.7 Lactic Acid Calcium Phosphorus Magnesium Total Bilirubin Direct Bilirubin AST ALT Alkaline Phosphatase C-Reactive Protein Total Protein Albumin Urine Color Yellow Urine Appearance Clear Urine pH 6.0 Ur Specific Story 1.015 Urine Protein 300 (3+) H Urine Glucose (UA) >=1000 H Urine Ketones Negative Urine Blood Small (1+) H Urine Nitrite Negative Ur Leukocyte Esterase Negative Urine RBC 3-5 H Urine WBC 0-5 Ur Squamous Epith Cells 0-2 Urine Bacteria None Seen Hyaline Casts 0-2 Random Vancomycin B-Hydroxybutyrate 04/18/23 04/18/23 04/18/23 22:49 23:21 23:43 WBC RBC Hgb Hct MCV MCH MCHC RDW Plt Count MPV Immature Gran % (Auto) Neut % (Auto) Lymph % (Auto) Charles % (Auto) Eos % (Auto) Baso % (Auto) Lymph # (Auto) Charles # (Auto) Eos # (Auto) Baso # (Auto) Abs Immat Gran (auto) Absolute Neuts (auto) Absolute Nucleated RBC Nucleated RBC % (auto) Neutrophils % (Manual) Band Neutrophils % Lymphocytes % (Manual) Monocytes % (Manual) Eosinophils % (Manual) Metamyelocytes % Abs Neuts (Manual) Lymphocytes # (Manual) Monocytes # (Manual) Eosinophils # (Manual) Metamyelocytes # Platelet Estimate Plt Morphology Comment RBC Morphology Hypochromasia Microcytosis Smear Tech's Comments Smear Path Review ESR VBG pH VBG pCO2 VBG pO2 VBG HCO3 VBG O2 Saturation VBG Base Excess Sodium 124 L Potassium 3.9 Chloride 95 L Carbon Dioxide 20 L Anion Gap 13 BUN 34 H Creatinine 2.87 H Estim Creat Clear Calc 38.0 Estimated GFR 24 POC Glucose 326 H 308 H Random Glucose 318 H Estimat Average Glucose Hemoglobin A1c % Lactic Acid Calcium 8.9 Phosphorus Magnesium Total Bilirubin Direct Bilirubin AST ALT Alkaline Phosphatase C-Reactive Protein Total Protein Albumin Urine Color Urine Appearance Urine pH Ur Specific Story Urine Protein Urine Glucose (UA) Urine Ketones Urine Blood Urine Nitrite Ur Leukocyte Esterase Urine RBC Urine WBC Ur Squamous Epith Cells Urine Bacteria Hyaline Casts Random Vancomycin B-Hydroxybutyrate 04/19/23 04/19/23 04/19/23 05:51 05:51 05:51 WBC 34.4 H* RBC 3.61 L Hgb 10.0 L Hct 30.4 L MCV 84.2 MCH 27.7 MCHC 32.9 RDW 12.3 Plt Count 213 MPV 11.8 Immature Gran % (Auto) Neut % (Auto) Lymph % (Auto) Charles % (Auto) Eos % (Auto) Baso % (Auto) Lymph # (Auto) Charles # (Auto) Eos # (Auto) Baso # (Auto) Abs Immat Gran (auto) Absolute Neuts (auto) Absolute Nucleated RBC 0.000 Nucleated RBC % (auto) 0.0 Neutrophils % (Manual) Band Neutrophils % Lymphocytes % (Manual) Monocytes % (Manual) Eosinophils % (Manual) Metamyelocytes % Abs Neuts (Manual) Lymphocytes # (Manual) Monocytes # (Manual) Eosinophils # (Manual) Metamyelocytes # Platelet Estimate Plt Morphology Comment RBC Morphology Hypochromasia Microcytosis Smear Tech's Comments Smear Path Review ESR 97 H VBG pH VBG pCO2 VBG pO2 VBG HCO3 VBG O2 Saturation VBG Base Excess Sodium 127 L Potassium 4.4 Chloride 98 Carbon Dioxide 25 Anion Gap 8 L BUN 36 H Creatinine 2.75 H Estim Creat Clear Calc 39.7 Estimated GFR 25 POC Glucose Random Glucose 313 H Estimat Average Glucose Hemoglobin A1c % Lactic Acid Calcium 9.1 Phosphorus Magnesium Total Bilirubin Direct Bilirubin AST ALT Alkaline Phosphatase C-Reactive Protein Total Protein Albumin Urine Color Urine Appearance Urine pH Ur Specific Story Urine Protein Urine Glucose (UA) Urine Ketones Urine Blood Urine Nitrite Ur Leukocyte Esterase Urine RBC Urine WBC Ur Squamous Epith Cells Urine Bacteria Hyaline Casts Random Vancomycin B-Hydroxybutyrate 04/19/23 04/19/23 04/19/23 07:37 11:09 15:24 WBC RBC Hgb Hct MCV MCH MCHC RDW Plt Count MPV Immature Gran % (Auto) Neut % (Auto) Lymph % (Auto) Charles % (Auto) Eos % (Auto) Baso % (Auto) Lymph # (Auto) Charles # (Auto) Eos # (Auto) Baso # (Auto) Abs Immat Gran (auto) Absolute Neuts (auto) Absolute Nucleated RBC Nucleated RBC % (auto) Neutrophils % (Manual) Band Neutrophils % Lymphocytes % (Manual) Monocytes % (Manual) Eosinophils % (Manual) Metamyelocytes % Abs Neuts (Manual) Lymphocytes # (Manual) Monocytes # (Manual) Eosinophils # (Manual) Metamyelocytes # Platelet Estimate Plt Morphology Comment RBC Morphology Hypochromasia Microcytosis Smear Tech's Comments Smear Path Review ESR VBG pH VBG pCO2 VBG pO2 VBG HCO3 VBG O2 Saturation VBG Base Excess Sodium Potassium Chloride Carbon Dioxide Anion Gap BUN Creatinine Estim Creat Clear Calc Estimated GFR POC Glucose 242 H 311 H 241 H Random Glucose Estimat Average Glucose Hemoglobin A1c % Lactic Acid Calcium Phosphorus Magnesium Total Bilirubin Direct Bilirubin AST ALT Alkaline Phosphatase C-Reactive Protein Total Protein Albumin Urine Color Urine Appearance Urine pH Ur Specific Story Urine Protein Urine Glucose (UA) Urine Ketones Urine Blood Urine Nitrite Ur Leukocyte Esterase Urine RBC Urine WBC Ur Squamous Epith Cells Urine Bacteria Hyaline Casts Random Vancomycin B-Hydroxybutyrate 04/19/23 04/19/23 04/19/23 16:07 18:41 20:16 WBC RBC Hgb Hct MCV MCH MCHC RDW Plt Count MPV Immature Gran % (Auto) Neut % (Auto) Lymph % (Auto) Charles % (Auto) Eos % (Auto) Baso % (Auto) Lymph # (Auto) Charles # (Auto) Eos # (Auto) Baso # (Auto) Abs Immat Gran (auto) Absolute Neuts (auto) Absolute Nucleated RBC Nucleated RBC % (auto) Neutrophils % (Manual) Band Neutrophils % Lymphocytes % (Manual) Monocytes % (Manual) Eosinophils % (Manual) Metamyelocytes % Abs Neuts (Manual) Lymphocytes # (Manual) Monocytes # (Manual) Eosinophils # (Manual) Metamyelocytes # Platelet Estimate Plt Morphology Comment RBC Morphology Hypochromasia Microcytosis Smear Tech's Comments Smear Path Review ESR VBG pH VBG pCO2 VBG pO2 VBG HCO3 VBG O2 Saturation VBG Base Excess Sodium Potassium Chloride Carbon Dioxide Anion Gap BUN Creatinine Estim Creat Clear Calc Estimated GFR POC Glucose 198 H 241 H Random Glucose Estimat Average Glucose Hemoglobin A1c % Lactic Acid Calcium Phosphorus Magnesium Total Bilirubin Direct Bilirubin AST ALT Alkaline Phosphatase C-Reactive Protein Total Protein Albumin Urine Color Urine Appearance Urine pH Ur Specific Story Urine Protein Urine Glucose (UA) Urine Ketones Urine Blood Urine Nitrite Ur Leukocyte Esterase Urine RBC Urine WBC Ur Squamous Epith Cells Urine Bacteria Hyaline Casts Random Vancomycin 12.3 L B-Hydroxybutyrate 04/20/23 04/20/23 04/20/23 06:52 06:52 07:28 WBC 31.3 H* RBC 3.41 L Hgb 9.3 L Hct 28.6 L MCV 83.9 MCH 27.3 MCHC 32.5 RDW 12.5 Plt Count 188 MPV 12.0 Immature Gran % (Auto) 3.9 H Neut % (Auto) 82.3 H Lymph % (Auto) 6.1 L Charles % (Auto) 6.4 Eos % (Auto) 1.1 Baso % (Auto) 0.2 Lymph # (Auto) 1.9 Charles # (Auto) 2.0 H Eos # (Auto) 0.4 Baso # (Auto) 0.1 Abs Immat Gran (auto) 1.22 H Absolute Neuts (auto) 25.7 H Absolute Nucleated RBC 0.000 Nucleated RBC % (auto) 0.0 Neutrophils % (Manual) Band Neutrophils % Lymphocytes % (Manual) Monocytes % (Manual) Eosinophils % (Manual) Metamyelocytes % Abs Neuts (Manual) Lymphocytes # (Manual) Monocytes # (Manual) Eosinophils # (Manual) Metamyelocytes # Platelet Estimate Plt Morphology Comment RBC Morphology Hypochromasia Microcytosis Smear Tech's Comments VERIFIED Smear Path Review ESR VBG pH VBG pCO2 VBG pO2 VBG HCO3 VBG O2 Saturation VBG Base Excess Sodium 128 L Potassium 3.3 D Chloride 101 Carbon Dioxide 20 L Anion Gap 10 L BUN 30 H Creatinine 2.26 H Estim Creat Clear Calc 48.3 Estimated GFR 32 POC Glucose 337 H Random Glucose 310 H Estimat Average Glucose Hemoglobin A1c % Lactic Acid Calcium 8.4 D Phosphorus Magnesium Total Bilirubin Direct Bilirubin AST ALT Alkaline Phosphatase C-Reactive Protein Total Protein Albumin Urine Color Urine Appearance Urine pH Ur Specific Story Urine Protein Urine Glucose (UA) Urine Ketones Urine Blood Urine Nitrite Ur Leukocyte Esterase Urine RBC Urine WBC Ur Squamous Epith Cells Urine Bacteria Hyaline Casts Random Vancomycin B-Hydroxybutyrate 04/20/23 04/20/23 04/20/23 11:00 13:57 15:51 WBC RBC Hgb Hct MCV MCH MCHC RDW Plt Count MPV Immature Gran % (Auto) Neut % (Auto) Lymph % (Auto) Charles % (Auto) Eos % (Auto) Baso % (Auto) Lymph # (Auto) Charles # (Auto) Eos # (Auto) Baso # (Auto) Abs Immat Gran (auto) Absolute Neuts (auto) Absolute Nucleated RBC Nucleated RBC % (auto) Neutrophils % (Manual) Band Neutrophils % Lymphocytes % (Manual) Monocytes % (Manual) Eosinophils % (Manual) Metamyelocytes % Abs Neuts (Manual) Lymphocytes # (Manual) Monocytes # (Manual) Eosinophils # (Manual) Metamyelocytes # Platelet Estimate Plt Morphology Comment RBC Morphology Hypochromasia Microcytosis Smear Tech's Comments Smear Path Review ESR VBG pH VBG pCO2 VBG pO2 VBG HCO3 VBG O2 Saturation VBG Base Excess Sodium Potassium Chloride Carbon Dioxide Anion Gap BUN Creatinine Estim Creat Clear Calc Estimated GFR POC Glucose 132 H 182 H 15 L* Random Glucose Estimat Average Glucose Hemoglobin A1c % Lactic Acid Calcium Phosphorus Magnesium Total Bilirubin Direct Bilirubin AST ALT Alkaline Phosphatase C-Reactive Protein Total Protein Albumin Urine Color Urine Appearance Urine pH Ur Specific Story Urine Protein Urine Glucose (UA) Urine Ketones Urine Blood Urine Nitrite Ur Leukocyte Esterase Urine RBC Urine WBC Ur Squamous Epith Cells Urine Bacteria Hyaline Casts Random Vancomycin B-Hydroxybutyrate 04/20/23 04/20/23 04/20/23 15:53 16:02 18:07 WBC RBC Hgb Hct MCV MCH MCHC RDW Plt Count MPV Immature Gran % (Auto) Neut % (Auto) Lymph % (Auto) Charles % (Auto) Eos % (Auto) Baso % (Auto) Lymph # (Auto) Charles # (Auto) Eos # (Auto) Baso # (Auto) Abs Immat Gran (auto) Absolute Neuts (auto) Absolute Nucleated RBC Nucleated RBC % (auto) Neutrophils % (Manual) Band Neutrophils % Lymphocytes % (Manual) Monocytes % (Manual) Eosinophils % (Manual) Metamyelocytes % Abs Neuts (Manual) Lymphocytes # (Manual) Monocytes # (Manual) Eosinophils # (Manual) Metamyelocytes # Platelet Estimate Plt Morphology Comment RBC Morphology Hypochromasia Microcytosis Smear Tech's Comments Smear Path Review ESR VBG pH VBG pCO2 VBG pO2 VBG HCO3 VBG O2 Saturation VBG Base Excess Sodium Potassium Chloride Carbon Dioxide Anion Gap BUN Creatinine Estim Creat Clear Calc Estimated GFR POC Glucose 258 H 256 H Random Glucose Estimat Average Glucose Hemoglobin A1c % Lactic Acid Calcium Phosphorus Magnesium Total Bilirubin Direct Bilirubin AST ALT Alkaline Phosphatase C-Reactive Protein Total Protein Albumin Urine Color Urine Appearance Urine pH Ur Specific Story Urine Protein Urine Glucose (UA) Urine Ketones Urine Blood Urine Nitrite Ur Leukocyte Esterase Urine RBC Urine WBC Ur Squamous Epith Cells Urine Bacteria Hyaline Casts Random Vancomycin 13.1 L B-Hydroxybutyrate 04/20/23 04/21/23 04/21/23 20:52 05:43 05:43 WBC 30.5 H* RBC 3.58 L Hgb 9.9 L Hct 30.2 L MCV 84.4 MCH 27.7 MCHC 32.8 RDW 12.4 Plt Count TNP MPV TNP Immature Gran % (Auto) 4.4 H Neut % (Auto) 79.7 H Lymph % (Auto) 8.1 L Charles % (Auto) 6.4 Eos % (Auto) 1.1 Baso % (Auto) 0.3 Lymph # (Auto) 2.5 Charles # (Auto) 2.0 H Eos # (Auto) 0.4 Baso # (Auto) 0.1 Abs Immat Gran (auto) 1.35 H Absolute Neuts (auto) 24.3 H Absolute Nucleated RBC 0.000 Nucleated RBC % (auto) 0.0 Neutrophils % (Manual) Band Neutrophils % Lymphocytes % (Manual) Monocytes % (Manual) Eosinophils % (Manual) Metamyelocytes % Abs Neuts (Manual) Lymphocytes # (Manual) Monocytes # (Manual) Eosinophils # (Manual) Metamyelocytes # Platelet Estimate Plt Morphology Comment RBC Morphology Hypochromasia Microcytosis Smear Tech's Comments VERIFIED Smear Path Review ESR VBG pH VBG pCO2 VBG pO2 VBG HCO3 VBG O2 Saturation VBG Base Excess Sodium 132 L Potassium 3.2 L Chloride 103 Carbon Dioxide 20 L Anion Gap 12 BUN 24 H Creatinine 1.97 H Estim Creat Clear Calc 55.4 Estimated GFR 37 POC Glucose 306 H Random Glucose 217 H Estimat Average Glucose Hemoglobin A1c % Lactic Acid Calcium 8.8 Phosphorus Magnesium Total Bilirubin Direct Bilirubin AST ALT Alkaline Phosphatase C-Reactive Protein Total Protein Albumin Urine Color Urine Appearance Urine pH Ur Specific Story Urine Protein Urine Glucose (UA) Urine Ketones Urine Blood Urine Nitrite Ur Leukocyte Esterase Urine RBC Urine WBC Ur Squamous Epith Cells Urine Bacteria Hyaline Casts Random Vancomycin B-Hydroxybutyrate 04/21/23 04/21/23 04/21/23 07:37 11:11 15:53 WBC RBC Hgb Hct MCV MCH MCHC RDW Plt Count MPV Immature Gran % (Auto) Neut % (Auto) Lymph % (Auto) Charles % (Auto) Eos % (Auto) Baso % (Auto) Lymph # (Auto) Charles # (Auto) Eos # (Auto) Baso # (Auto) Abs Immat Gran (auto) Absolute Neuts (auto) Absolute Nucleated RBC Nucleated RBC % (auto) Neutrophils % (Manual) Band Neutrophils % Lymphocytes % (Manual) Monocytes % (Manual) Eosinophils % (Manual) Metamyelocytes % Abs Neuts (Manual) Lymphocytes # (Manual) Monocytes # (Manual) Eosinophils # (Manual) Metamyelocytes # Platelet Estimate Plt Morphology Comment RBC Morphology Hypochromasia Microcytosis Smear Tech's Comments Smear Path Review ESR VBG pH VBG pCO2 VBG pO2 VBG HCO3 VBG O2 Saturation VBG Base Excess Sodium Potassium Chloride Carbon Dioxide Anion Gap BUN Creatinine Estim Creat Clear Calc Estimated GFR POC Glucose 197 H 157 H 243 H Random Glucose Estimat Average Glucose Hemoglobin A1c % Lactic Acid Calcium Phosphorus Magnesium Total Bilirubin Direct Bilirubin AST ALT Alkaline Phosphatase C-Reactive Protein Total Protein Albumin Urine Color Urine Appearance Urine pH Ur Specific Story Urine Protein Urine Glucose (UA) Urine Ketones Urine Blood Urine Nitrite Ur Leukocyte Esterase Urine RBC Urine WBC Ur Squamous Epith Cells Urine Bacteria Hyaline Casts Random Vancomycin B-Hydroxybutyrate 04/21/23 04/21/23 04/22/23 18:40 20:25 05:57 WBC 32.2 H* RBC 3.69 L Hgb 9.8 L Hct 30.7 L MCV 83.2 MCH 26.6 L MCHC 31.9 RDW 12.4 Plt Count 168 MPV 11.2 Immature Gran % (Auto) 3.7 H Neut % (Auto) 84.1 H Lymph % (Auto) 6.1 L Charles % (Auto) 5.1 Eos % (Auto) 0.7 Baso % (Auto) 0.3 Lymph # (Auto) 2.0 Charles # (Auto) 1.6 H Eos # (Auto) 0.2 Baso # (Auto) 0.1 Abs Immat Gran (auto) 1.19 H Absolute Neuts (auto) 27.1 H Absolute Nucleated RBC 0.000 Nucleated RBC % (auto) 0.0 Neutrophils % (Manual) Band Neutrophils % Lymphocytes % (Manual) Monocytes % (Manual) Eosinophils % (Manual) Metamyelocytes % Abs Neuts (Manual) Lymphocytes # (Manual) Monocytes # (Manual) Eosinophils # (Manual) Metamyelocytes # Platelet Estimate Plt Morphology Comment RBC Morphology Hypochromasia Microcytosis Smear Tech's Comments VERIFIED Smear Path Review ESR VBG pH VBG pCO2 VBG pO2 VBG HCO3 VBG O2 Saturation VBG Base Excess Sodium Potassium Chloride Carbon Dioxide Anion Gap BUN Creatinine Estim Creat Clear Calc Estimated GFR POC Glucose 172 H Random Glucose Estimat Average Glucose Hemoglobin A1c % Lactic Acid Calcium Phosphorus Magnesium Total Bilirubin Direct Bilirubin AST ALT Alkaline Phosphatase C-Reactive Protein Total Protein Albumin Urine Color Urine Appearance Urine pH Ur Specific Story Urine Protein Urine Glucose (UA) Urine Ketones Urine Blood Urine Nitrite Ur Leukocyte Esterase Urine RBC Urine WBC Ur Squamous Epith Cells Urine Bacteria Hyaline Casts Random Vancomycin 18.0 B-Hydroxybutyrate 04/22/23 04/22/23 04/22/23 05:57 07:03 11:13 WBC RBC Hgb Hct MCV MCH MCHC RDW Plt Count MPV Immature Gran % (Auto) Neut % (Auto) Lymph % (Auto) Charles % (Auto) Eos % (Auto) Baso % (Auto) Lymph # (Auto) Charles # (Auto) Eos # (Auto) Baso # (Auto) Abs Immat Gran (auto) Absolute Neuts (auto) Absolute Nucleated RBC Nucleated RBC % (auto) Neutrophils % (Manual) Band Neutrophils % Lymphocytes % (Manual) Monocytes % (Manual) Eosinophils % (Manual) Metamyelocytes % Abs Neuts (Manual) Lymphocytes # (Manual) Monocytes # (Manual) Eosinophils # (Manual) Metamyelocytes # Platelet Estimate Plt Morphology Comment RBC Morphology Hypochromasia Microcytosis Smear Tech's Comments Smear Path Review ESR VBG pH VBG pCO2 VBG pO2 VBG HCO3 VBG O2 Saturation VBG Base Excess Sodium 131 L Potassium 3.8 Chloride 103 Carbon Dioxide 20 L Anion Gap 12 BUN 18 H Creatinine 1.75 H Estim Creat Clear Calc 62.4 Estimated GFR 43 POC Glucose 158 H 167 H Random Glucose 170 H Estimat Average Glucose Hemoglobin A1c % Lactic Acid Calcium 8.8 Phosphorus Magnesium Total Bilirubin Direct Bilirubin AST ALT Alkaline Phosphatase C-Reactive Protein Total Protein Albumin Urine Color Urine Appearance Urine pH Ur Specific Story Urine Protein Urine Glucose (UA) Urine Ketones Urine Blood Urine Nitrite Ur Leukocyte Esterase Urine RBC Urine WBC Ur Squamous Epith Cells Urine Bacteria Hyaline Casts Random Vancomycin B-Hydroxybutyrate 04/22/23 04/22/23 04/22/23 16:03 18:31 19:24 WBC RBC Hgb Hct MCV MCH MCHC RDW Plt Count MPV Immature Gran % (Auto) Neut % (Auto) Lymph % (Auto) [place] % (Auto) Eos % (Auto) Baso % (Auto) Lymph # (Auto) [place] # (Auto) Eos # (Auto) Baso # (Auto) Abs Immat Gran (auto) Absolute Neuts (auto) Absolute Nucleated RBC Nucleated RBC % (auto) Neutrophils % (Manual) Band Neutrophils % Lymphocytes % (Manual) Monocytes % (Manual) Eosinophils % (Manual) Metamyelocytes % Abs Neuts (Manual) Lymphocytes # (Manual) Monocytes # (Manual) Eosinophils # (Manual) Metamyelocytes # Platelet Estimate Plt Morphology Comment RBC Morphology Hypochromasia Microcytosis Smear Tech's Comments Smear Path Review ESR VBG pH VBG pCO2 VBG pO2 VBG HCO3 VBG O2 Saturation VBG Base Excess Sodium Potassium Chloride Carbon Dioxide Anion Gap BUN Creatinine Estim Creat Clear Calc Estimated GFR POC Glucose 174 H 177 H Random Glucose Estimat Average Glucose Hemoglobin A1c % Lactic Acid Calcium Phosphorus Magnesium Total Bilirubin Direct Bilirubin AST ALT Alkaline Phosphatase C-Reactive Protein Total Protein Albumin Urine Color Urine Appearance Urine pH Ur Specific Story Urine Protein Urine Glucose (UA) Urine Ketones Urine Blood Urine Nitrite Ur Leukocyte Esterase Urine RBC Urine WBC Ur Squamous Epith Cells Urine Bacteria Hyaline Casts Random Vancomycin 19.7 B-Hydroxybutyrate 04/23/23 04/23/23 04/23/23 05:52 05:52 07:06 WBC 26.2 H RBC 3.69 L Hgb 10.2 L Hct 31.0 L MCV 84.0 MCH 27.6 MCHC 32.9 RDW 12.5 Plt Count 183 MPV 11.5 Immature Gran % (Auto) Cancelled Neut % (Auto) Cancelled Lymph % (Auto) Cancelled [place] % (Auto) Cancelled Eos % (Auto) Cancelled Baso % (Auto) Cancelled Lymph # (Auto) Cancelled [place] # (Auto) Cancelled Eos # (Auto) Cancelled Baso # (Auto) Cancelled Abs Immat Gran (auto) Cancelled Absolute Neuts (auto) Cancelled Absolute Nucleated RBC 0.000 Nucleated RBC % (auto) 0.0 Neutrophils % (Manual) 76 H Band Neutrophils % 10 H Lymphocytes % (Manual) 7 L Monocytes % (Manual) 5 Eosinophils % (Manual) 1 Metamyelocytes % 1 Abs Neuts (Manual) 22.5 H Lymphocytes # (Manual) 1.8 Monocytes # (Manual) 1.3 H Eosinophils # (Manual) 0.3 Metamyelocytes # 0.3 Platelet Estimate NORMAL Plt Morphology Comment NORMAL RBC Morphology NORMAL Hypochromasia 1+ (5-14) Microcytosis 1+ (5-14) Smear Tech's Comments Smear Path Review ESR VBG pH VBG pCO2 VBG pO2 VBG HCO3 VBG O2 Saturation VBG Base Excess Sodium 132 L Potassium 3.5 Chloride 102 Carbon Dioxide 18 L Anion Gap 16 BUN 22 H Creatinine 1.76 H Estim Creat Clear Calc 62.0 Estimated GFR 42 POC Glucose 164 H Random Glucose 175 H Estimat Average Glucose Hemoglobin A1c % Lactic Acid Calcium 8.7 Phosphorus Magnesium Total Bilirubin Direct Bilirubin AST ALT Alkaline Phosphatase C-Reactive Protein Total Protein Albumin Urine Color Urine Appearance Urine pH Ur Specific Story Urine Protein Urine Glucose (UA) Urine Ketones Urine Blood Urine Nitrite Ur Leukocyte Esterase Urine RBC Urine WBC Ur Squamous Epith Cells Urine Bacteria Hyaline Casts Random Vancomycin B-Hydroxybutyrate 04/23/23 11:10 WBC RBC Hgb Hct MCV MCH MCHC RDW Plt Count MPV Immature Gran % (Auto) Neut % (Auto) Lymph % (Auto) [place] % (Auto) Eos % (Auto) Baso % (Auto) Lymph # (Auto) [place] # (Auto) Eos # (Auto) Baso # (Auto) Abs Immat Gran (auto) Absolute Neuts (auto) Absolute Nucleated RBC Nucleated RBC % (auto) Neutrophils % (Manual) Band Neutrophils % Lymphocytes % (Manual) Monocytes % (Manual) Eosinophils % (Manual) Metamyelocytes % Abs Neuts (Manual) Lymphocytes # (Manual) Monocytes # (Manual) Eosinophils # (Manual) Metamyelocytes # Platelet Estimate Plt Morphology Comment RBC Morphology Hypochromasia Microcytosis Smear Tech's Comments Smear Path Review ESR VBG pH VBG pCO2 VBG pO2 VBG HCO3 VBG O2 Saturation VBG Base Excess Sodium Potassium Chloride Carbon Dioxide Anion Gap BUN Creatinine Estim Creat Clear Calc Estimated GFR POC Glucose 187 H Random Glucose Estimat Average Glucose Hemoglobin A1c % Lactic Acid Calcium Phosphorus Magnesium Total Bilirubin Direct Bilirubin AST ALT Alkaline Phosphatase C-Reactive Protein Total Protein Albumin Urine Color Urine Appearance Urine pH Ur Specific Story Urine Protein Urine Glucose (UA) Urine Ketones Urine Blood Urine Nitrite Ur Leukocyte Esterase Urine RBC Urine WBC Ur Squamous Epith Cells Urine Bacteria Hyaline Casts Random Vancomycin B-Hydroxybutyrate Airway Mallampati Class: III TM Dist: >3cm Neck ROM: Full Heart: RRR Lungs: CTA Assessment and Plan Final Anesthetic Review Family History of Problems with Anesthesia: No History of Problems with Anesthesia: No NPO: Yes ASA Class: III Final Preanesthetic Review: Meds/Allgs Chart Reviewed, Consent Obtained/Reviewed and Anes Risks/Benef Reviewed Patient Risk: Intermediate Procedure Risk: Low Anesthetic Plan Anesthetic Plan: GA Disposition: Standard PACU
--- NOTE | 2023-04-23 13:37 | MHC.CM.PN ---
Per MD rounds no discharge today. Patient sent to O.R. for debridement. DP 6 weeks of IV ABX. Referrals have been sent to facilities. [facility] referred as well. DP IV ABX in SNF vs Home infusion. Patient has a ride home.
--- NOTE | 2023-04-23 14:41 | W.PM.OPN ---
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 Crook last April 19, 2023 because of gangrene. Examination of the open wound yesterday showed purulent discharge from the plantar aspect through the open wound at the amputation site. Furthermore, there was note of some nonviable tissue overlying this wound including the rim. I therefore explained to him it would be best to proceed with repeat debridement in the OR. He understood the technique of this procedure as well as the risks, benefits, and alternatives. he was brought to the operating room and placed supine under general anesthesia via laryngeal mask airway. The right foot was prepped and draped in the usual sterile fashion. A surgical time-out was done. The patient was receiving schedule at the [facility]. I removed the dressings. Examination of the open wound revealed what appeared to be gangrenous tissue on the margins of the open wound. I probed the plantar side of the open wound and this seemed to open up into a cavity all the way to the proximal plantar area. I therefore opened this up with a blade 15. All the way to the proximal plantar aspect. There was note of at the plantar abscess. I had to excise a thick amount of skin and Elaina tissue in the plantar area to expose this entire cavity. Note of gangrenous layer within this cavity which I sharply excised. Examination of the open wound itself at the amputation site revealed gangrenous soft tissue. I had to do aggressive excisional debridement size is down to viable appearing tissue. There was note of purulent discharge as well the interdigital aspect of the 4th and 5th toes so I opened this up and extended the incision towards this area. Pus as well as nonviable tissue was noted again and I had to do further debridement at the dorsal aspect of this distal foot to excise as much of the nonviable tissue as possible. I had to debride sharply surrounding the head of the metatarsal on the 3rd toe. This was surrounded by nonviable looking tissue as well. At this point it appears that the patient will probably require a BKA as the soft tissue infection surrounding the metatarsal the 3rd was extensive, and to track more proximally. it does not appear that he will he have adequate coverage with a transmetatarsal amputation I will re-examine the wound tomorrow morning. I will discuss the options with his family as well as the patient himself.
[2023-04-23] MEDS: fentaNYL citrate/PF 100 MCG/2 ML VIAL 25 MCG IVPUSH ×2 (14:55→15:02)
--- NOTE | 2023-04-23 15:31 | PC.NURSE ---
Patient arrived from [facility],right foot drsg intact,atient alert warm blankets provided for patient
--- NOTE | 2023-04-23 15:33 | PC.NURSE ---
SUKHDEEP Nicolas notified of patient arrival,taking VS
[2023-04-23] MEDS: HYDROmorphone HCl 0.5 MG/0.5 ML SYRINGE IVPUSH (15:52)
[2023-04-23] MEDS: 0.9 % Sodium Chloride Flush 3 ML SYRINGE IVFLUSH (15:52)
[2023-04-23] MEDS: Insulin Lispro 100 UNIT/ML 3 ML VIAL SUBCUT ×2 (16:12→21:17)
[2023-04-23 16:24] LABS: Glucose, Whole Blood 196 mg/dL (60-115)
--- NOTE | 2023-04-23 17:36 | PC.NURSE ---
Pt back from OR approx 3:30pm. A&Ox3, c/o 08/12 pain, medicated per eMAR with Positive effect. Lungs, clear, IS education given, pt agrees to use. Able to move toes, dressing intact, no strike through with ana lilia bandage. See OR Note.
[2023-04-23 18:42] LABS: Vancomycin Random 20.5 mcg/mL (15-20)
--- NOTE | 2023-04-23 19:07 | HE.PHANOTE ---
Vancomycin Dosing Addendum Vanco trough 20.5. Adjusted dose to j=4275 mg q24h to start 24 hours after last dose. Monitor Scr. Next trough 04/25/23 @0600
[2023-04-23 20:28] LABS: Glucose, Whole Blood 187 mg/dL (60-115)
[2023-04-23] MEDS: Heparin Sodium,Porcine 5,000 UNIT/ML VIAL 5000 UNIT SUBCUT (21:17)
[2023-04-23] MEDS: Atorvastatin Calcium 40 MG TABLET PO (21:17)
[2023-04-23] MEDS: cefEPime HCl 2 GM in 0.9 % Sodium Chloride 50 ML IV (22:35)
[2023-04-24] MEDS: 0.9 % Sodium Chloride Flush 3 ML SYRINGE IVFLUSH ×3 (00:27→16:28)
[2023-04-24] MEDS: HYDROmorphone HCl 0.5 MG/0.5 ML SYRINGE IVPUSH ×2 (00:32→07:35)
[2023-04-24] MEDS: oxyCODONE HCl Immed Release 5 MG TABLET 10 MG PO (02:03)
[2023-04-24] MEDS: Omeprazole 20 MG CAPSULE.DR PO (05:18)
[2023-04-24] MEDS: Heparin Sodium,Porcine 5,000 UNIT/ML VIAL 5000 UNIT SUBCUT ×3 (05:18→21:09)
[2023-04-24 06:11] LABS: MANUAL DIFF FLAG NO
[2023-04-24 06:18] LABS: Basophils Absolute Auto 0.1 X10*3/uL (0.0-0.2); Basophils Percent Auto 0.4 % (0-2); Eosinophils Absolute Auto 0.1 X10*3/uL (0.0-0.4); Eosinophils Percent Auto 0.3 % (0-4); Hematocrit 29.3 % (42.0-52.0); Hemoglobin 9.7 g/dl (14.0-18.0); Imm Gran Abs Auto 1.14 X10*3/uL (0.00-0.03); Lymphocytes Absolute Auto 2.3 X10*3/uL (1.2-4.9); Lymphocytes Percent Auto 10.3 % (20-40); Mean Corpuscular HGB Conc 33.1 g/dl (31.0-36.0); Mean Corpuscular Hemoglobin 27.7 pg (27.0-33.0); Mean Corpuscular Volume 83.7 fL (80.0-98.0); Mean Platelet Volume 11.5 fL (9.4-12.4); Monocytes Absolute Auto 1.2 X10*3/uL (0.1-1.2); Monocytes Percent Auto 5.5 % (2-11); Neutrophils Absolute Auto 17.9 x10*3/uL (2.0-8.3); Neutrophils Percent Auto 78.5 % (45-73); Platelet Count 138 X10*3/uL (160-400); Red Cell Distribution Width 12.4 % (11.0-16.0); White Blood Count 22.7 X10*3/uL (4.8-10.8)
[2023-04-24 06:33] LABS: Vancomycin Trough 16.8 mcg/mL (10.0-20.0)
[2023-04-24 06:38] LABS: Anion Gap 11 (12-20); Blood Urea Nitrogen 21 mg/dL (9-16); Calcium 8.5 mg/dL (8.4-10.2); Carbon Dioxide 21 mmol/L (22-29); Chloride 101 mmol/L (96-108); Creatinine Clr Calc Pharmacy 65.7; Estimated Glomerular Filt Rate 45; Glucose Random 237 mg/dL (60-115); Potassium 3.4 mmol/L (3.3-5.1); Sodium 130 mmol/L (135-145)
[2023-04-24 07:31] VITALS: BP 137/63; PULSE 80; RESP 18; TEMP 37.1; O2SAT 99
[2023-04-24] MEDS: Lidocaine 4 % Patch ADH..PATCH 1 PATCH TRANSDERMA (07:40)
[2023-04-24 07:41] LABS: Glucose, Whole Blood 211 mg/dL (60-115)
--- NOTE | 2023-04-24 08:05 | P.PNGS_ITS ---
Subjective Subjective Date of Service: 04/24/23 <Rolanda Steel PA-C - Last Filed: 04/24/23 09:04> 04/24/23 <Eliecer Cali MD - Last Filed: 04/24/23 09:16> Interval history: C/o severe pain, unable to sleep last night. Dilaudid not helping. <Rolanda Steel PA-C - Last Filed: 04/24/23 09:04> Physical Exam Vital Signs: Vital Signs: Last Vital Signs Temp 98.8 F 04/24/23 07:31 Pulse 80 04/24/23 07:31 Resp 18 04/24/23 07:31 BP 137/63 04/24/23 07:31 Pulse Ox 99 04/24/23 07:31 O2 Del Method Room Air 04/24/23 07:31 BMI result Body Mass Index 30.1 <Rolanda Steel PA-C - Last Filed: 04/24/23 09:04> Const: General: comfortable, no acute distress and alert <Rolanda Steel PA-C - Last Filed: 04/24/23 09:04> Resp: Effort & Inspection: normal respiratory effort <Rolanda Steel PA-C - Last Filed: 04/24/23 09:04> Skin: Other: warm and dry <Rolanda Steel PA-C - Last Filed: 04/24/23 09:04> Extrem: Other: right 2nd toe amp/debridement site- wound improved this morning, no significant gangrenous tissue, no further purulence appreciated <Rolanda Steel PA-C - Last Filed: 04/24/23 09:04> Objective Data Active Medications Atorvastatin Calcium (Atorvastatin Calcium 40 Mg Tablet) 40 mg PO BEDTIME LYSSA Last Admin: 04/23/23 21:17 Dose: 40 mg Documented By: CAREN Cyclobenzaprine HCl (Cyclobenzaprine Hcl 5 Mg Tablet) 5 mg PO TID PRN PRN Reason: back spasm Last Admin: 04/23/23 08:30 Dose: 5 mg Documented By: MAVIS Dextrose (Dextrose 50 % 25 Gm/50 Ml Syringe) 25 gm IVPUSH Q15M PRN; Protocol PRN Reason: per Hypoglycemia Standing Ord. Docusate Sodium (Docusate Sodium 100 Mg Capsule) 100 mg PO DAILY PRN PRN Reason: Constipation Fentanyl (Fentanyl Citrate/Pf 100 Mcg/2 Ml Vial) 25 mcg IVPUSH Q5M PRN; Protocol PRN Reason: Pain, Moderate(Pain Scale 4-6) Last Admin: 04/23/23 15:02 Dose: 25 mcg Documented By: LINDY Glucose (Glucose Gel 15 Gm Gel..Gram.) 15 gm PO Q15M PRN; Protocol PRN Reason: per Hypoglycemia Standing Ord. Heparin Sodium (Porcine) (Heparin Sodium,Porcine 5,000 Unit/Ml Vial) 5,000 unit SUBCUT Q8H [facility] Last Admin: 04/24/23 05:18 Dose: 5,000 unit Documented By: ZAY Hydromorphone HCl (Hydromorphone Hcl 0.5 Mg/0.5 Ml Syringe) 1 mg IVPUSH Q4H PRN; Protocol PRN Reason: Pain, Severe (Pain Scale 7-10) Cefepime HCl 2 gm/ Sodium (Chloride) 50 mls @ 100 mls/hr IV Q24H [facility] [place] Last Infusion: 04/23/23 23:09 Dose: 0 mls/hr Documented By: CAREN Vancomycin HCl 1,250 mg/ (Sodium Chloride) 250 mls @ 166.667 mls/hr IV Q24H [facility] [place] Insulin Glargine (Insulin Glargine,Hum.Rec.Anlog 100 Unit/Ml 10 Ml Vial) 10 unit SUBCUT DAILY [facility] Last Admin: 04/20/23 08:15 Dose: 10 unit Documented By: AMINATA Insulin Human Lispro (Insulin Lispro 100 Unit/Ml 3 Ml Vial) 0 unit SUBCUT QIDACHS [facility] [place]; Protocol Last Admin: 04/24/23 07:38 Dose: Not Given Documented By: MAVIS Non-Admin Reason: NPO Lidocaine (Lidocaine 4 % Patch Adh..Patch) 1 patch TRANSDERMA DAILY [facility]; Protocol Last Admin: 04/24/23 07:40 Dose: 1 patch Documented By: MAVIS Lisinopril (Lisinopril 20 Mg Tablet) 20 mg PO DAILY [facility]; Protocol Last Admin: 04/19/23 08:08 Dose: 20 mg Documented By: KAYLA Melatonin (Melatonin 3 Mg Tablet) 6 mg PO BEDTIME PRN PRN Reason: insomnia Multivitamins/Vitamin C (Multivitamin Tablet) 1 tab PO DAILY [facility] [place] Last Admin: 04/24/23 07:37 Dose: Not Given Documented By: MAVIS Non-Admin Reason: NPO Omeprazole (Omeprazole 20 Mg Capsule.Dr) 20 mg PO DAILY@0630 [facility] [place] Last Admin: 04/24/23 05:18 Dose: 20 mg Documented By: ZAY Ondansetron HCl (Ondansetron Hcl 4 Mg/2 Ml Vial) 4 mg IVPUSH Q8H PRN PRN Reason: Nausea and Vomiting Last Admin: 04/21/23 12:20 Dose: 4 mg Documented By: DEEPTI Oxycodone HCl (Oxycodone Hcl Immed Release 5 Mg Tablet) 5 mg PO Q4H PRN PRN Reason: Pain, Moderate(Pain Scale 4-6) Last Admin: 04/22/23 11:50 Dose: 5 mg Documented By: DEEPTI Oxycodone HCl (Oxycodone Hcl Immed Release 5 Mg Tablet) 10 mg PO Q4H PRN PRN Reason: Pain, Severe (Pain Scale 7-10) Last Admin: 04/24/23 02:03 Dose: 10 mg Documented By: ZAY Pharmacy Consult (Consult Rx Perform Med Rec) 1 each MISCELLANE ONCE PRN PRN Reason: Consult order Pharmacy Consult (Consult Rx Vancomycin Dosing) 1 each MISCELLANE DAILY PRN PRN Reason: Consult order Sodium Chloride (0.9 % Sodium Chloride Flush 3 Ml Syringe) 3 ml IVFLUSH QSHIFT [facility] [place] Last Admin: 04/24/23 07:37 Dose: 3 ml Documented By: MAVIS Sodium Hypochlorite (Sodium Hypochlorite 0.25% 473 Ml Solution) 1 appl TOPICAL DAILY [facility] [place] Last Admin: 04/24/23 07:38 Dose: 1 appl Documented By: MAVIS <Rolanda Steel PA-C - Last Filed: 04/24/23 09:04> Labs CBC & Chem 7: 04/24/23 05:42 04/24/23 05:42 <Rolanda Steel PA-C - Last Filed: 04/24/23 09:04> Labs: Laboratory Results - last 24 hr 04/23/23 04/23/23 04/23/23 05:52 11:10 16:05 MCV MCH MCHC RDW Plt Count MPV Immature Gran % (Auto) Neut % (Auto) Lymph % (Auto) [place] % (Auto) Eos % (Auto) Baso % (Auto) Lymph # (Auto) [place] # (Auto) Eos # (Auto) Baso # (Auto) Abs Immat Gran (auto) Absolute Neuts (auto) Absolute Nucleated RBC Nucleated RBC % (auto) Neutrophils % (Manual) 76 H Band Neutrophils % 10 H Lymphocytes % (Manual) 7 L Monocytes % (Manual) 5 Eosinophils % (Manual) 1 Metamyelocytes % 1 Abs Neuts (Manual) 22.5 H Lymphocytes # (Manual) 1.8 Monocytes # (Manual) 1.3 H Eosinophils # (Manual) 0.3 Metamyelocytes # 0.3 Platelet Estimate NORMAL Plt Morphology Comment NORMAL RBC Morphology NORMAL Hypochromasia 1+ (5-14) Microcytosis 1+ (5-14) Anion Gap Estim Creat Clear Calc Estimated GFR POC Glucose 187 H 196 H Random Glucose Calcium Vancomycin Trough Random Vancomycin 04/23/23 04/23/23 04/24/23 17:59 20:17 05:42 MCV MCH MCHC RDW Plt Count MPV Immature Gran % (Auto) Neut % (Auto) Lymph % (Auto) [place] % (Auto) Eos % (Auto) Baso % (Auto) Lymph # (Auto) [place] # (Auto) Eos # (Auto) Baso # (Auto) Abs Immat Gran (auto) Absolute Neuts (auto) Absolute Nucleated RBC Nucleated RBC % (auto) Neutrophils % (Manual) Band Neutrophils % Lymphocytes % (Manual) Monocytes % (Manual) Eosinophils % (Manual) Metamyelocytes % Abs Neuts (Manual) Lymphocytes # (Manual) Monocytes # (Manual) Eosinophils # (Manual) Metamyelocytes # Platelet Estimate Plt Morphology Comment RBC Morphology Hypochromasia Microcytosis Anion Gap Estim Creat Clear Calc Estimated GFR POC Glucose 187 H Random Glucose Calcium Vancomycin Trough 16.8 Random Vancomycin 20.5 H 04/24/23 04/24/23 04/24/23 05:42 05:42 07:35 MCV 83.7 MCH 27.7 MCHC 33.1 RDW 12.4 Plt Count 138 L MPV 11.5 Immature Gran % (Auto) 5.0 H Neut % (Auto) 78.5 H Lymph % (Auto) 10.3 L [place] % (Auto) 5.5 Eos % (Auto) 0.3 Baso % (Auto) 0.4 Lymph # (Auto) 2.3 [place] # (Auto) 1.2 Eos # (Auto) 0.1 Baso # (Auto) 0.1 Abs Immat Gran (auto) 1.14 H Absolute Neuts (auto) 17.9 H Absolute Nucleated RBC 0.000 Nucleated RBC % (auto) 0.0 Neutrophils % (Manual) Band Neutrophils % Lymphocytes % (Manual) Monocytes % (Manual) Eosinophils % (Manual) Metamyelocytes % Abs Neuts (Manual) Lymphocytes # (Manual) Monocytes # (Manual) Eosinophils # (Manual) Metamyelocytes # Platelet Estimate Plt Morphology Comment RBC Morphology Hypochromasia Microcytosis Anion Gap 11 L Estim Creat Clear Calc 65.7 Estimated GFR 45 POC Glucose 211 H Random Glucose 237 H Calcium 8.5 Vancomycin Trough Random Vancomycin <Rolanda Steel PA-C - Last Filed: 04/24/23 09:04> Microbiology Microbiology Results: Microbiology 04/18/23 18:24 Blood Culture - Final Blood - Venous No growth after 5 days. 04/18/23 18:24 Blood Culture - Final Blood - Venous No growth after 5 days. <Rolanda Steel PA-C - Last Filed: 04/24/23 09:04> Procedures Date of Service Date of Service: 04/24/23 <Rolanda Steel PA-C - Last Filed: 04/24/23 09:04> 04/24/23 <Eliecer Cali MD - Last Filed: 04/24/23 09:16> Progress Note: A&P Assessment and plan (1) Diabetic wet gangrene of the foot: Status: Acute <Rolanda Steel PA-C - Last Filed: 04/24/23 09:04> Assessment and Plan: Underwent extensive debridement yesterday because of presence of gangrenous tissue Wound looks much better - generally with good granulation although distal metatarsal of 2nd toe is exposed Open wound from debridement extends to the proximal plantar area We can hold off on BKA for now in view of significant improvement Will need good wound care Will eventually need amputation of the metatarsal of the 2nd toe if we are to avoid transmetatarsal amputation or BKA <Eliecer Cali MD - Last Filed: 04/24/23 09:16> Assessment and Plan: 42 year old male with DM admitted with wet gangrene right foot requiring 2nd toe amp initially, and further debridement of gangrenous soft tissue in OR yesterday. Wound improved this AM, no significant necrotic tissue or purulence appreciated. Will continue with local wound care with wet to dry fluffs, kerlix and ana lilia wrap daily. Discussed likely need for transmet vs BKA next week but will hold off for now. <Rolanda Steel PA-C - Last Filed: 04/24/23 09:04> Time Spent With Patient Time: Total time managing care of this patient today ____ minutes. <Rolanda Steel PA-C - Last Filed: 04/24/23 09:04> Quality Stroke Does the patient have a stroke diagnosis?: No <Rolanda Steel PA-C - Last Filed: 04/24/23 09:04> VTE Prior VTE?: No <Rolanda Steel PA-C - Last Filed: 04/24/23 09:04> VTE Risk Level:: Medical - moderate - high <Rolanda Steel PA-C - Last Filed: 04/24/23 09:04> VTE Device Contraindication: Treatment Not Indicated <Rolanda Steel PA-C - Last Filed: 04/24/23 09:04> VTE Drug Contraindication: N/A - Med Ordered <Rolanda Steel PA-C - Last Filed: 04/24/23 09:04>
[2023-04-24] MEDS: Insulin Lispro 100 UNIT/ML 3 ML VIAL SUBCUT ×4 (08:18→21:08)
[2023-04-24] MEDS: HYDROmorphone HCl 0.5 MG/0.5 ML SYRINGE 1 MG IVPUSH ×2 (08:18→16:36)
--- NOTE | 2023-04-24 08:58 | PC.NURSE ---
OKay per PA to wait for Vanco trough to be drawn, lab called at 8AM for 6AM draw.
--- NOTE | 2023-04-24 09:04 | P.PNIM_ITS ---
Subjective Subjective Date of Service: 04/24/23 Interval History: seen and examined this morning follow up for right foot wound did not sleep well overnight having pain at amputation site. no fever, chills Review of Systems Review of Systems: Yes all other systems are reviewed and are negative Constitutional Constitutional: Denies chills and Denies fever(s) Cardiovascular Cardiovascular: Denies chest pain, Denies palpitations and Denies dyspnea Respiratory Respiratory: Denies cough and Denies dyspnea Gastrointestinal Gastrointestinal: Denies abdominal pain, Denies constipation, Denies diarrhea, Denies nausea and Denies vomiting Endocrine Endocrine: Denies palpitations Physical Exam Vital Signs: Vital Signs: Last Vital Signs Temp 98.8 F 04/24/23 07:31 Pulse 80 04/24/23 07:31 Resp 18 04/24/23 07:31 BP 137/63 04/24/23 07:31 Pulse Ox 99 04/24/23 07:31 O2 Del Method Room Air 04/24/23 07:31 BMI result Body Mass Index 30.1 Const: General: cooperative, comfortable, no acute distress, alert and awake Nutritional Appearance: average body habitus Orientation/consciousness: patient oriented x3 Eyes: Pupils: Equal, round and reactive pupils present Resp: Effort & Inspection: normal respiratory effort, able to speak in complete sentences, no respiratory distress and no use of accessory muscles Auscultation: clear to auscultation bilaterally Cardio: Rate: regular rate Heart sounds: S1 normal heart sound present and S2 normal heart sound present GI: Inspection: No distended Palpation (GI): Soft to palpation and nontender Skin: Other: warm/dry Neuro: General: patient oriented x3, moves all extremities and CN's II-XI intact bilaterally Cranial nerves: Yes Equal, round and reactive pupils present Extrem: Other: right foot wrapped in c/d/i dressing - see surgical note for picture of wound Objective Data Active Medications Atorvastatin Calcium (Atorvastatin Calcium 40 Mg Tablet) 40 mg PO BEDTIME LYSSA Last Admin: 04/23/23 21:17 Dose: 40 mg Documented By: CAREN Cyclobenzaprine HCl (Cyclobenzaprine Hcl 5 Mg Tablet) 5 mg PO TID PRN PRN Reason: back spasm Last Admin: 04/23/23 08:30 Dose: 5 mg Documented By: MAVIS Dextrose (Dextrose 50 % 25 Gm/50 Ml Syringe) 25 gm IVPUSH Q15M PRN; Protocol PRN Reason: per Hypoglycemia Standing Ord. Docusate Sodium (Docusate Sodium 100 Mg Capsule) 100 mg PO DAILY PRN PRN Reason: Constipation Fentanyl (Fentanyl Citrate/Pf 100 Mcg/2 Ml Vial) 25 mcg IVPUSH Q5M PRN; Protoco l PRN Reason: Pain, Moderate(Pain Scale 4-6) Last Admin: 04/23/23 15:02 Dose: 25 mcg Documented By: LINDY Glucose (Glucose Gel 15 Gm Gel..Gram.) 15 gm PO Q15M PRN; Protocol PRN Reason: per Hypoglycemia Standing Ord. Heparin Sodium (Porcine) (Heparin Sodium,Porcine 5,000 Unit/Ml Vial) 5,000 unit SUBCUT Q8H [facility] Last Admin: 04/24/23 05:18 Dose: 5,000 unit Documented By: ZAY Hydromorphone HCl (Hydromorphone Hcl 0.5 Mg/0.5 Ml Syringe) 1 mg IVPUSH Q4H PRN; Protocol PRN Reason: Pain, Severe (Pain Scale 7-10) Last Admin: 04/24/23 08:18 Dose: 1 mg Documented By: MAVIS Cefepime HCl 2 gm/ Sodium (Chloride) 50 mls @ 100 mls/hr IV Q24H [facility] Last Infusion: 04/23/23 23:09 Dose: 0 mls/hr Documented By: CAREN Vancomycin HCl 1,250 mg/ (Sodium Chloride) 250 mls @ 166.667 mls/hr IV Q24H [facility] Insulin Glargine (Insulin Glargine,Hum.Rec.Anlog 100 Unit/Ml 10 Ml Vial) 10 unit SUBCUT DAILY [facility] Last Admin: 04/20/23 08:15 Dose: 10 unit Documented By: AMINATA Insulin Human Lispro (Insulin Lispro 100 Unit/Ml 3 Ml Vial) 0 unit SUBCUT QIDACHS [facility]; Protocol Last Admin: 04/24/23 08:18 Dose: 4 unit Documented By: MAVIS Lidocaine (Lidocaine 4 % Patch Adh..Patch) 1 patch TRANSDERMA DAILY [facility]; Protocol Last Admin: 04/24/23 07:40 Dose: 1 patch Documented By: MAVIS Lisinopril (Lisinopril 20 Mg Tablet) 20 mg PO DAILY [facility]; Protocol Last Admin: 04/19/23 08:08 Dose: 20 mg Documented By: KAYLA Melatonin (Melatonin 3 Mg Tablet) 6 mg PO BEDTIME PRN PRN Reason: insomnia Multivitamins/Vitamin C (Multivitamin Tablet) 1 tab PO DAILY [facility] Last Admin: 04/24/23 07:37 Dose: Not Given Documented By: MAVIS Non-Admin Reason: NPO Omeprazole (Omeprazole 20 Mg Capsule.Dr) 20 mg PO DAILY@0630 [facility] Last Admin: 04/24/23 05:18 Dose: 20 mg Documented By: ZAY Ondansetron HCl (Ondansetron Hcl 4 Mg/2 Ml Vial) 4 mg IVPUSH Q8H PRN PRN Reason: Nausea and Vomiting Last Admin: 04/21/23 12:20 Dose: 4 mg Documented By: DEEPTI Oxycodone HCl (Oxycodone Hcl Immed Release 5 Mg Tablet) 5 mg PO Q4H PRN PRN Reason: Pain, Moderate(Pain Scale 4-6) Last Admin: 04/22/23 11:50 Dose: 5 mg Documented By: DEEPTI Oxycodone HCl (Oxycodone Hcl Immed Release 5 Mg Tablet) 10 mg PO Q4H PRN PRN Reason: Pain, Severe (Pain Scale 7-10) Last Admin: 04/24/23 02:03 Dose: 10 mg Documented By: ZAY Pharmacy Consult (Consult Rx Perform Med Rec) 1 each MISCELLANE ONCE PRN PRN Reason: Consult order Pharmacy Consult (Consult Rx Vancomycin Dosing) 1 each MISCELLANE DAILY PRN PRN Reason: Consult order Sodium Chloride (0.9 % Sodium Chloride Flush 3 Ml Syringe) 3 ml IVFLUSH QSHIFT [facility] Last Admin: 04/24/23 07:37 Dose: 3 ml Documented By: MAVIS Sodium Hypochlorite (Sodium Hypochlorite 0.25% 473 Ml Solution) 1 appl TOPICAL DAILY [facility] Last Admin: 04/24/23 07:38 Dose: 1 appl Documented By: MAVIS Labs 04/24/23 05:42 04/24/23 05:42 Labs: Laboratory Results - last 24 hr 04/23/23 04/23/23 04/23/23 11:10 16:05 17:59 MCV MCH MCHC RDW Plt Count MPV Immature Gran % (Auto) Neut % (Auto) Lymph % (Auto) Benson % (Auto) Eos % (Auto) Baso % (Auto) Lymph # (Auto) Benson # (Auto) Eos # (Auto) Baso # (Auto) Abs Immat Gran (auto) Absolute Neuts (auto) Absolute Nucleated RBC Nucleated RBC % (auto) Anion Gap Estim Creat Clear Calc Estimated GFR POC Glucose 187 H 196 H Random Glucose Calcium Vancomycin Trough Random Vancomycin 20.5 H 04/23/23 04/24/23 04/24/23 20:17 05:42 05:42 MCV MCH MCHC RDW Plt Count MPV Immature Gran % (Auto) Neut % (Auto) Lymph % (Auto) Benson % (Auto) Eos % (Auto) Baso % (Auto) Lymph # (Auto) Benson # (Auto) Eos # (Auto) Baso # (Auto) Abs Immat Gran (auto) Absolute Neuts (auto) Absolute Nucleated RBC Nucleated RBC % (auto) Anion Gap 11 L Estim Creat Clear Calc 65.7 Estimated GFR 45 POC Glucose 187 H Random Glucose 237 H Calcium 8.5 Vancomycin Trough 16.8 Random Vancomycin 04/24/23 04/24/23 05:42 07:35 MCV 83.7 MCH 27.7 MCHC 33.1 RDW 12.4 Plt Count 138 L MPV 11.5 Immature Gran % (Auto) 5.0 H Neut % (Auto) 78.5 H Lymph % (Auto) 10.3 L Benson % (Auto) 5.5 Eos % (Auto) 0.3 Baso % (Auto) 0.4 Lymph # (Auto) 2.3 Benson # (Auto) 1.2 Eos # (Auto) 0.1 Baso # (Auto) 0.1 Abs Immat Gran (auto) 1.14 H Absolute Neuts (auto) 17.9 H Absolute Nucleated RBC 0.000 Nucleated RBC % (auto) 0.0 Anion Gap Estim Creat Clear Calc Estimated GFR POC Glucose 211 H Random Glucose Calcium Vancomycin Trough Random Vancomycin Microbiology Microbiology Results: Microbiology 04/18/23 18:24 Blood Culture - Final Blood - Venous No growth after 5 days. 04/18/23 18:24 Blood Culture - Final Blood - Venous No growth after 5 days. Assessment and Plan (1) Diabetic ulcer of right foot: Status: Acute (2) Osteomyelitis: Status: Acute Plan Pt is a 42-year-old male with a PMH significant for?HTN, HLD, non insulin- dependent diabetes type 2, and CKD stage III who presents to the ED with?right foot pain, swelling, and redness, and discoloration of his 2nd toe, now s/p right 2nd toe amputation being treated with IV antibiotics and will undergo addl surgical debridement today Sepsis secondary to gangrenous right toe/foot wound related to diabetes Met criteria with WBC of 35.2 and tacycardia. CRP of 27.75, ESR 97. Lactic acid wnl s/p right second toe amputation 04/19 and extensive debridement 04/23 initially treated with IV Vanco and cefepime -wound culture growing group b strep, will transition to IV meropenem 04/24. ID rec 6 weeks IV ertapenem surgery following blood cultures negative continue local wound care per surgery rec. Acute Left foot osteo xray concerning for osteomyelitis of left foot - first distal phalanx continue abx as above ID input appreciated- will likely need 6 weeks ertapenam [id number] diabetes type 2, with hyperglycemia- glucose control improving glucose of 529 on admission on glipizide at baseline, will hold HbA1c 10.7 pt non-compliant with diabetic diet or blood sugar monitoring POCs improving Diabetic diet Hyponatremia primarily related to pseudohyponatremia from hyperglycemia Follow BMP CKD stage III SCr down to 1.66 - improved from baseline Follow BMP Acute hypokalemia resolved normoycytic anemia likely related to chronic dz and acute inflammation H&H stable follow CBC HLD Continue statin HTN bp stable- continue holding lisinopril, resume as appropriate Full Code Attending:?Dr. perez DVT Prophylaxis:heparin patient requires ongoing inpatient hospitalization for management of gangrenous foot infection including acute surgical intervention as well as IV antibiotics and additional surgical debridement which cannot take place in lower level of care Time Spent With Patient Time: Total time managing care of this patient today ____ minutes. Quality Stroke Does the patient have a stroke diagnosis?: No VTE Prior VTE?: No VTE Risk Level:: Medical - moderate - high VTE Device Contraindication: Treatment Not Indicated VTE Drug Contraindication: N/A - Med Ordered
--- NOTE | 2023-04-24 09:49 | PC.NURSE ---
refusing fall risk interventions
--- NOTE | 2023-04-24 09:51 | W.PM.OPN ---
Operative Note Operative Note Date of Service: 04/19/23 Narrative: Preop diagnosis-- right 2nd gangrenous toe Postop diagnosis--same Procedure done--amputation of right 2nd toe gangrenous toe and debridement of plantar foot tissue Surgeon--Ambreen Anesthesia--general Indications-- the patient is a 42-year-old diabetic male who comes in with injury to his toe from a shoe which is progressively gotten worse and as result the toe over the last several days he says his gotten black. Here he has an elevated white count of 34,000 glucose levels are in the 500 range and his creatinine is up. Comes in now for emergent amputation of this gangrenous toe Findings-- right 2nd toe gangrenous with healthy bone noted at the proximal phalanx. Soft tissue laterally and medially next to the adjacent toes also was some necrosis and necrotic tissue extending into the plantar soft tissue above the metatarsal head. Procedure-- patient was brought to the OR and under anesthesia guidance intubated he had compression stockings placed on the other leg and his right foot was prepped and draped in standard surgical fashion. The toe had been marked out preoperatively as the correct digit for amputation and time-out was carried out. The dorsal aspect of the toe was taken down at the junction with the forefoot with the scalpel and dissection was carried out medially and laterally around the edge of the toe coming around to the plantar aspect. This was then taken directly to the bone with the scalpel and the cautery was used to get to the point where all the soft tissue was debrided off bone. Bone cutter was then used to amputate the toe from the proximal phalanx. A rongeur was then used to debride down to healthier bone that bled closer to the proximal metatarsal head area. The specimen was sent at the most proximal region to rule out osteomyelitis. This area the bone looked very healthy and bleeding and viable. Attention was then focused to the plantar aspect of the foot at the base of the toe and this tissue was necrotic and was debrided opening into the deep plantar space. Some of the tendons here were transected with the cautery and sharp dissection and the area deeper here probed but there was no further purulent drainage noted. The area was irrigated and cleaned with Betadine as well. At this point the toe was sent for pathology cultures were taken and the area packed. Patient was extubated returned stable to recovery room. Estimated blood loss was 20 cc
[2023-04-24 11:30] LABS: Glucose, Whole Blood 194 mg/dL (60-115)
--- NOTE | 2023-04-24 13:58 | HO.POSTANES ---
Post Anesthesia Evaluation Post Anesthesia Evaluation Date of Service: 04/24/23 Vital Signs: Vital Signs Temp Pulse Resp BP Pulse Ox O2 Del Method 04/24/23 07:31 98.8 F 80 18 137/63 99 Room Air Anesthesia: General Mental Status: Awake Pain Control: Satisfactory (severe pain) Nausea/Vomiting: None Hydration: Adequate Anesthesia-Related Issues: No Anes. Related Issues
[2023-04-24 15:22] VITALS: BP 108/59; PULSE 95; RESP 20; TEMP 36.4; O2SAT 100
[2023-04-24 16:10] LABS: Glucose, Whole Blood 329 mg/dL (60-115)
[2023-04-24 20:46] LABS: Glucose, Whole Blood 205 mg/dL (60-115)
[2023-04-24] MEDS: Atorvastatin Calcium 40 MG TABLET PO (21:09)
[2023-04-24 23:41] VITALS: BP 108/59; PULSE 95; RESP 18; TEMP 36.6; O2SAT 98
[2023-04-25] MEDS: oxyCODONE HCl Immed Release 5 MG TABLET 10 MG PO ×4 (01:00→20:30)
[2023-04-25] MEDS: Cyclobenzaprine HCl 5 MG TABLET PO (01:00)
[2023-04-25] MEDS: 0.9 % Sodium Chloride Flush 3 ML SYRINGE IVFLUSH ×4 (01:01→20:33)
[2023-04-25] MEDS: Omeprazole 20 MG CAPSULE.DR PO (05:31)
[2023-04-25] MEDS: Heparin Sodium,Porcine 5,000 UNIT/ML VIAL 5000 UNIT SUBCUT ×3 (05:31→20:31)
[2023-04-25 07:21] VITALS: BP 122/60; PULSE 100; RESP 20; TEMP 36.8; O2SAT 98
[2023-04-25 07:46] LABS: Glucose, Whole Blood 295 mg/dL (60-115)
[2023-04-25] MEDS: HYDROmorphone HCl 0.5 MG/0.5 ML SYRINGE 1 MG IVPUSH (08:04)
[2023-04-25] MEDS: Multivitamin TABLET 1 TAB PO (08:04)
[2023-04-25] MEDS: Insulin Lispro 100 UNIT/ML 3 ML VIAL SUBCUT ×4 (08:04→20:32)
[2023-04-25] MEDS: Lidocaine 4 % Patch ADH..PATCH 1 PATCH TRANSDERMA (08:05)
--- NOTE | 2023-04-25 09:05 | P.PNGS_ITS ---
Subjective Subjective Date of Service: 04/25/23 <Rolanda Steel PA-C - Last Filed: 04/25/23 10:21> 04/25/23 <Eliecer Cali MD - Last Filed: 04/25/23 09:44> Interval history: Feels overall better, less pain at foot. <Rolanda Steel PA-C - Last Filed: 04/25/23 10:21> Physical Exam Vital Signs: Vital Signs: Last Vital Signs Temp 98.2 F 04/25/23 07:21 Pulse 100 04/25/23 07:21 Resp 20 04/25/23 07:21 BP 122/60 04/25/23 07:21 Pulse Ox 98 04/25/23 07:21 O2 Del Method Room Air 04/25/23 07:21 BMI result Body Mass Index 30.1 <Rolanda Steel PA-C - Last Filed: 04/25/23 10:21> Const: General: comfortable, no acute distress and alert <Rolanda gonzalez PA-C - Last Filed: 04/25/23 10:21> Resp: Effort & Inspection: normal respiratory effort <Rolanda Steel PA-C - Last Filed: 04/25/23 10:21> Skin: General skin exam: no rashes or lesions noted <HENRRY Andrade Last Filed: 04/25/23 10:21> Extrem: Other: no gangrenous tissue noted, no purulence or bogginess appreciated, wound base beginning to granulate in some areas <Rolanda Steel PA-C - Last Filed: 04/25/23 10:21> Objective Data Active Medications Atorvastatin Calcium (Atorvastatin Calcium 40 Mg Tablet) 40 mg PO BEDTIME L[facility]SSA Last Admin: 04/24/23 21:09 Dose: 40 mg Documented By: AVRISJe Cyclobenzaprine HCl (Cyclobenzaprine Hcl 5 Mg Tablet) 5 mg PO TID PRN PRN Reason: back spasm Last Admin: 04/25/23 01:00 Dose: 5 mg Documented By: KAI Dextrose (Dextrose 50 % 25 Gm/50 Ml Syringe) 25 gm IVPUSH Q15M PRN; Protocol PRN Reason: per Hypoglycemia Standing Ord. Docusate Sodium (Docusate Sodium 100 Mg Capsule) 100 mg PO DAILY PRN PRN Reason: Constipation Fentanyl (Fentanyl Citrate/Pf 100 Mcg/2 Ml Vial) 25 mcg IVPUSH Q5M PRN; Protocol PRN Reason: Pain, Moderate(Pain Scale 4-6) Last Admin: 04/23/23 15:02 Dose: 25 mcg Documented By: LINDY Glucose (Glucose Gel 15 Gm Gel..Gram.) 15 gm PO Q15M PRN; Protocol PRN Reason: per Hypoglycemia Standing Ord. Heparin Sodium (Porcine) (Heparin Sodium,Porcine 5,000 Unit/Ml Vial) 5,000 unit SUBCUT Q8H [facility] Last Admin: 04/25/23 05:31 Dose: 5,000 unit Documented By: ANGEL Hydromorphone HCl (Hydromorphone Hcl 0.5 Mg/0.5 Ml Syringe) 1 mg IVPUSH Q4H PRN; Protocol PRN Reason: Pain, Severe (Pain Scale 7-10) Last Admin: 04/25/23 08:04 Dose: 1 mg Documented By: TONI Meropenem 1 gm/ Sodium (Chloride) 100 mls @ 200 mls/hr IV Q8H [facility] Last Infusion: 04/25/23 01:38 Dose: 0 mls/hr Documented By: ANGEL Insulin Human Lispro (Insulin Lispro 100 Unit/Ml 3 Ml Vial) 0 unit SUBCUT QIDACHS [facility]; Protocol Last Admin: 04/25/23 08:04 Dose: 6 unit Documented By: TONI Lidocaine (Lidocaine 4 % Patch Adh..Patch) 1 patch TRANSDERMA DAILY [facility]; Protocol Last Admin: 04/25/23 08:05 Dose: 1 patch Documented By: TONI Lisinopril (Lisinopril 20 Mg Tablet) 20 mg PO DAILY [facility]; Protocol Last Admin: 04/19/23 08:08 Dose: 20 mg Documented By: KAYLA Melatonin (Melatonin 3 Mg Tablet) 6 mg PO BEDTIME PRN PRN Reason: insomnia Multivitamins/Vitamin C (Multivitamin Tablet) 1 tab PO DAILY [facility] Last Admin: 04/25/23 08:04 Dose: 1 tab Documented By: TONI Omeprazole (Omeprazole 20 Mg Capsule.) 20 mg PO DAILY@0630 [facility] Last Admin: 04/25/23 05:31 Dose: 20 mg Documented By: ANGEL Ondansetron HCl (Ondansetron Hcl 4 Mg/2 Ml Vial) 4 mg IVPUSH Q8H PRN PRN Reason: Nausea and Vomiting Last Admin: 04/21/23 12:20 Dose: 4 mg Documented By: DEEPTI Oxycodone HCl (Oxycodone Hcl Immed Release 5 Mg Tablet) 10 mg PO Q4H PRN PRN Reason: Pain, Severe (Pain Scale 7-10) Last Admin: 04/25/23 05:35 Dose: 10 mg Documented By: ANGEL Pharmacy Consult (Consult Rx Perform Med Rec) 1 each MISCELLANE ONCE PRN PRN Reason: Consult order Sodium Chloride (0.9 % Sodium Chloride Flush 3 Ml Syringe) 3 ml IVFLUSH QSHIFT [facility] Last Admin: 04/25/23 08:14 Dose: 3 ml Documented By: TONI Sodium Hypochlorite (Sodium Hypochlorite 0.25% 473 Ml Solution) 1 appl TOPICAL DAILY [facility] Last Admin: 04/24/23 07:38 Dose: 1 appl Documented By: MAVIS <Rolanda Steel PA-C - Last Filed: 04/25/23 10:21> Labs CBC & Chem 7: 04/24/23 05:42 04/24/23 05:42 <Rolanda Steel PA-C - Last Filed: 04/25/23 10:21> Labs: Laboratory Results - last 24 hr 04/24/23 04/24/23 04/24/23 11:02 16:05 20:42 POC Glucose 194 H 329 H 205 H 04/25/23 07:25 POC Glucose 295 H <Rolanda Steel PA-C - Last Filed: 04/25/23 10:21> Procedures Date of Service Date of Service: 04/25/23 <Rolanda Steel PA-C - Last Filed: 04/25/23 10:21> 04/25/23 <Eliecer Cali MD - Last Filed: 04/25/23 09:44> Progress Note: A&P Assessment and plan (1) Diabetic wet gangrene of the foot: Status: Acute <Rolanda Steel PA-C - Last Filed: 04/25/23 10:21> Assessment and Plan: wound appears much better after extensive debridement however he will likely need further amputation, whether trans met or BKA will need to monitor how much soft tissue remains viable for adequate coverage daily wound care for now Dr. Schneider will be following the patient in my absence <Eliecre Cali MD - Last Filed: 04/25/23 09:44> Assessment and Plan: 42 year old male with DM admitted with wet gangrene right foot requiring 2nd toe amp initially, and extensive soft tissue debridement of gangrenous tissue in OR 04/23/23. Wound continues to look improved, no significant necrotic tissue or purulence appreciated. Will continue with local wound care with wet to dry fluffs, kerlix and ana lilia wrap BID. Discussed likely need for transmet vs BKA down the line but will hold off for now to decide what is necessary- still concerned about third and now fourth toe. Patient and mother comfortable with plan. <Rolanda Steel PA-C - Last Filed: 04/25/23 10:21> Time Spent With Patient Time: Total time managing care of this patient today ____ minutes. <Rolanda Steel PA-C - Last Filed: 04/25/23 10:21> Quality Stroke Does the patient have a stroke diagnosis?: No <Rolanda Steel PA-C - Last Filed: 04/25/23 10:21> VTE Prior VTE?: No <Rolanda Steel PA-C - Last Filed: 04/25/23 10:21> VTE Risk Level:: Medical - moderate - high <Rolanda Steel PA-C - Last Filed: 04/25/23 10:21> VTE Device Contraindication: Treatment Not Indicated <Rolanda Steel PA-C - Last Filed: 04/25/23 10:21> VTE Drug Contraindication: N/A - Med Ordered <Rolanda Steel PA-C - Last Filed: 04/25/23 10:21>
[2023-04-25 11:12] LABS: Glucose, Whole Blood 209 mg/dL (60-115)
--- NOTE | 2023-04-25 11:16 | P.PNIM_ITS ---
Subjective Subjective Date of Service: 04/25/23 Interval History: patient seen and examined at bedside. Status post amputation of right 2nd on 04/19 and debridement on 04/23. There is evidence of discoloration of the 3rd and 4th toe. Patient himself denies any pain, reports no events overnight. No chest pain, no shortness of breath, no abdominal pain nausea vomiting, no diarrhea constipation, tolerating breakfast well. Has no urinary symptoms. Review of Systems Review of Systems: Yes all other systems are reviewed and are negative Physical Exam Vital Signs: Vital Signs: Last Vital Signs Temp 98.2 F 04/25/23 07:21 Pulse 100 04/25/23 07:21 Resp 20 04/25/23 07:21 BP 122/60 04/25/23 07:21 Pulse Ox 98 04/25/23 07:21 O2 Del Method Room Air 04/25/23 07:21 BMI result Body Mass Index 30.1 Const: Other: Alert and oriented x3 Resp: Other: clear to auscultations bilaterally Cardio: Other: normal rate and rhythm Extrem: Other: status post amputation of 2nd right toe, wound in dressing. there is also evidence of discoloration /necrotic appearing 3rd and 4th toe. see photo Objective Data Active Medications Atorvastatin Calcium (Atorvastatin Calcium 40 Mg Tablet) 40 mg PO BEDTIME [facility] Last Admin: 04/24/23 21:09 Dose: 40 mg Documented By: SHARA Cyclobenzaprine HCl (Cyclobenzaprine Hcl 5 Mg Tablet) 5 mg PO TID PRN PRN Reason: back spasm Last Admin: 04/25/23 01:00 Dose: 5 mg Documented By: KAI Dextrose (Dextrose 50 % 25 Gm/50 Ml Syringe) 25 gm IVPUSH Q15M PRN; Protocol PRN Reason: per Hypoglycemia Standing Ord. Docusate Sodium (Docusate Sodium 100 Mg Capsule) 100 mg PO DAILY PRN PRN Reason: Constipation Fentanyl (Fentanyl Citrate/Pf 100 Mcg/2 Ml Vial) 25 mcg IVPUSH Q5M PRN; Protocol PRN Reason: Pain, Moderate(Pain Scale 4-6) Last Admin: 04/23/23 15:02 Dose: 25 mcg Documented By: LINDY Glucose (Glucose Gel 15 Gm Gel..Gram.) 15 gm PO Q15M PRN; Protocol PRN Reason: per Hypoglycemia Standing Ord. Heparin Sodium (Porcine) (Heparin Sodium,Porcine 5,000 Unit/Ml Vial) 5,000 unit SUBCUT Q8H [facility] Last Admin: 04/25/23 05:31 Dose: 5,000 unit Documented By: ANGEL Hydromorphone HCl (Hydromorphone Hcl 0.5 Mg/0.5 Ml Syringe) 1 mg IVPUSH Q4H PRN; Protocol PRN Reason: Pain, Severe (Pain Scale 7-10) Last Admin: 04/25/23 08:04 Dose: 1 mg Documented By: TONI Meropenem 1 gm/ Sodium (Chloride) 100 mls @ 200 mls/hr IV Q8H [facility] Last Infusion: 04/25/23 10:36 Dose: 0 mls/hr Documented By: TONI Insulin Human Lispro (Insulin Lispro 100 Unit/Ml 3 Ml Vial) 0 unit SUBCUT QIDACHS [facility]; Protocol Last Admin: 04/25/23 08:04 Dose: 6 unit Documented By: TONI Lidocaine (Lidocaine 4 % Patch Adh..Patch) 1 patch TRANSDERMA DAILY [facility]; Protocol Last Admin: 04/25/23 08:05 Dose: 1 patch Documented By: TONI Lisinopril (Lisinopril 20 Mg Tablet) 20 mg PO DAILY [facility]; Protocol Last Admin: 04/19/23 08:08 Dose: 20 mg Documented By: KAYLA Melatonin (Melatonin 3 Mg Tablet) 6 mg PO BEDTIME PRN PRN Reason: insomnia Multivitamins/Vitamin C (Multivitamin Tablet) 1 tab PO DAILY [facility] Last Admin: 04/25/23 08:04 Dose: 1 tab Documented By: TONI Omeprazole (Omeprazole 20 Mg Capsule.Dr) 20 mg PO DAILY@0630 [facility] Last Admin: 04/25/23 05:31 Dose: 20 mg Documented By: ANGEL Ondansetron HCl (Ondansetron Hcl 4 Mg/2 Ml Vial) 4 mg IVPUSH Q8H PRN PRN Reason: Nausea and Vomiting Last Admin: 04/21/23 12:20 Dose: 4 mg Documented By: DEEPTI Oxycodone HCl (Oxycodone Hcl Immed Release 5 Mg Tablet) 10 mg PO Q4H PRN PRN Reason: Pain, Severe (Pain Scale 7-10) Last Admin: 04/25/23 05:35 Dose: 10 mg Documented By: ANGEL Pharmacy Consult (Consult Rx Perform Med Rec) 1 each MISCELLANE ONCE PRN PRN Reason: Consult order Sodium Chloride (0.9 % Sodium Chloride Flush 3 Ml Syringe) 3 ml IVFLUSH QSHIFT [facility] Last Admin: 04/25/23 08:14 Dose: 3 ml Documented By: TONI Sodium Hypochlorite (Sodium Hypochlorite 0.25% 473 Ml Solution) 1 appl TOPICAL DAILY [facility] Last Admin: 04/25/23 09:46 Dose: 1 appl Documented By: TONI Labs 04/24/23 05:42 04/24/23 05:42 Labs: Laboratory Results - last 24 hr 04/24/23 04/24/23 04/24/23 11:02 16:05 20:42 POC Glucose 194 H 329 H 205 H 04/25/23 04/25/23 07:25 11:00 POC Glucose 295 H 209 H Assessment and Plan (1) Diabetic ulcer of right foot: Status: Acute (2) Diabetic wet gangrene of the foot: Status: Acute (3) Amputation of toe of right foot: Status: Acute (4) Hyperglycemia: Status: Acute (5) Osteomyelitis: Status: Acute Plan Pt is a 42-year-old male with a PMH significant for?HTN, HLD, non insulin- dependent diabetes type 2, and CKD stage III who presents to the ED with?right foot pain, swelling, and redness, and discoloration of his 2nd toe, now s/p right 2nd toe amputation being treated with IV antibiotics and will undergo addl surgical debridement today # Sepsis secondary to gangrenous right toe/foot wound related to diabetes - resolved - s/p right second toe amputation 04/19 and extensive debridement 04/23 - Continue IV meropeneml for total of 6 weeks ( started on 04/24) - follow blood cultures/wound culture # right 2nd toe acute osteomyelitis - status post amputation on 04/19 with extensive soft tissue debridement on 04/23 - healing per surgery evaluation but now with concern for 3rd and 4th toe as seen in the above photo - may require further amputation, will re-evaluate over the weekend - continue IV antibiotics, will require 6 weeks of meropenem/ ertapenem - infectious Disease following # Acute Left foot osteo - xray concerning for osteomyelitis of left foot - first distal phalanx. at this time not requiring amputation or surgical intervention - continue abx as above - ID input appreciated- will likely need 6 weeks ertapenam # Kab-jdrjaaf-ddejuypoo diabetes type 2, with hyperglycemia- glucose control improving - on glipizide at baseline, will continue to hold - HbA1c 10.7 pt non-compliant with diabetic diet or blood sugar monitoring - will require insulin on discharge the elevated hemoglobin A1c - contue POCs QIDACHS - Diabetic diet Hyponatremia - resolved - primarily related to pseudohyponatremia from hyperglycemia - Follow BMP #CKD stage III - SCr down to 1.66 - improved from baseline - Follow BMP # Acute hypokalemia - resolved # normoycytic anemia likely related to chronic dz and acute inflammation H&H stable follow CBC #HLD Continue statin # HTN - bp stable - continue holding lisinopril, resume as appropriate Full Code Attending:?Dr. perez DVT Prophylaxis:heparin patient requires ongoing inpatient hospitalization for management of gangrenous foot infection including acute surgical intervention as well as IV antibiotics and additional surgical debridement which cannot take place in lower level of care Time Spent With Patient Time: Total time managing care of this patient today ____ minutes. Quality Stroke Does the patient have a stroke diagnosis?: No VTE Prior VTE?: No VTE Risk Level:: Medical - moderate - high VTE Device Contraindication: Treatment Not Indicated VTE Drug Contraindication: N/A - Med Ordered
[2023-04-25 15:23] VITALS: BP 127/85; PULSE 100; RESP 20; TEMP 36.2; O2SAT 99
[2023-04-25 16:14] LABS: Glucose, Whole Blood 294 mg/dL (60-115)
[2023-04-25 20:24] LABS: Glucose, Whole Blood 201 mg/dL (60-115)
[2023-04-25] MEDS: Atorvastatin Calcium 40 MG TABLET PO (20:31)
[2023-04-25 23:26] VITALS: BP 115/60; PULSE 97; RESP 18; TEMP 36.2; O2SAT 99
[2023-04-26] MEDS: HYDROmorphone HCl 0.5 MG/0.5 ML SYRINGE 1 MG IVPUSH ×2 (01:14→09:32)
[2023-04-26] MEDS: oxyCODONE HCl Immed Release 5 MG TABLET 10 MG PO ×4 (05:47→22:12)
[2023-04-26] MEDS: Heparin Sodium,Porcine 5,000 UNIT/ML VIAL 5000 UNIT SUBCUT ×3 (05:47→21:52)
[2023-04-26] MEDS: Omeprazole 20 MG CAPSULE.DR PO (05:47)
[2023-04-26 06:25] LABS: Hematocrit 27.3 % (42.0-52.0); Hemoglobin 8.6 g/dl (14.0-18.0); Mean Corpuscular HGB Conc 31.5 g/dl (31.0-36.0); Mean Corpuscular Hemoglobin 27.3 pg (27.0-33.0); Mean Corpuscular Volume 86.7 fL (80.0-98.0); Mean Platelet Volume 11.3 fL (9.4-12.4); Red Blood Count 3.15 X10*6/uL (4.60-5.80); Red Cell Distribution Width 12.9 % (11.0-16.0); White Blood Count 18.2 X10*3/uL (4.8-10.8)
[2023-04-26 06:41] LABS: Anion Gap 10 (12-20); Blood Urea Nitrogen 26 mg/dL (9-16); Calcium 8.1 mg/dL (8.4-10.2); Carbon Dioxide 24 mmol/L (22-29); Chloride 101 mmol/L (96-108); Creatinine Clr Calc Pharmacy 45.6; Estimated Glomerular Filt Rate 30; Glucose Random 283 mg/dL (60-115); Potassium 4.3 mmol/L (3.3-5.1); Sodium 131 mmol/L (135-145)
[2023-04-26 06:58] LABS: Platelet Count 115 X10*3/uL (160-400)
[2023-04-26 07:02] LABS: Band Neutrophils Percent 2 % (3-5); Eosinophils Absolute Manual 0.7 X10*3/uL (0.0-0.4); Eosinophils Percent Manual 4 % (0-4); Lymphocytes Absolute Manual 2.2 X10*3/uL (1.2-4.9); Lymphocytes Percent Manual 12 % (20-40); Metamyelocytes Absolute 0.2 X10*3/uL; Metamyelocytes Percent 1 %; Monocytes Absolute Manual 0.9 X10*3/uL (0.1-1.2); Monocytes Percent Manual 5 % (2-11); Neutrophils Absolute Manual 14.2 X10*3/uL (2.0-8.3); Neutrophils Percent Manual 76 % (45-73)
[2023-04-26 07:04] LABS: Large Platelet PRESENT; Platelet Estimate SLIGHTLY DECREASED (NORMAL); Platelet Morphology Comment NOTE; RBC Morphology NORMAL
[2023-04-26 07:17] VITALS: BP 121/68; PULSE 89; RESP 18; TEMP 37.1; O2SAT 99
[2023-04-26 07:26] LABS: Glucose, Whole Blood 308 mg/dL (60-115)
[2023-04-26] MEDS: Lidocaine 4 % Patch ADH..PATCH 1 PATCH TRANSDERMA (07:56)
[2023-04-26] MEDS: Insulin Lispro 100 UNIT/ML 3 ML VIAL SUBCUT ×2 (07:57→17:07)
[2023-04-26] MEDS: Lactated Ringers 1,000 ML 100 ML IVCONT ×2 (07:57→18:10)
[2023-04-26] MEDS: Multivitamin TABLET 1 TAB PO (07:58)
[2023-04-26] MEDS: 0.9 % Sodium Chloride Flush 3 ML SYRINGE IVFLUSH ×2 (08:04→21:53)
--- NOTE | 2023-04-26 08:58 | HO.PM.IMPN ---
Subjective Subjective Date of Service: 04/26/23 Interval History: Patient seen and examined at bedside. No overnight events. Patient feels that his foot is getting better. he wants to move around and walk in the hallways. He denies any fever no chills, has been eating breakfast with no nausea or vomiting, no abdominal pain diarrhea constipation Physical Exam Vital Signs: Vital Signs: Last Vital Signs Temp 98.7 F 04/26/23 07:17 Pulse 89 04/26/23 07:17 Resp 18 04/26/23 07:17 BP 121/68 04/26/23 07:17 Pulse Ox 99 04/26/23 07:17 O2 Del Method Room Air 04/26/23 07:17 BMI result Body Mass Index 30.1 Const: Other: Awake alert, having breakfast comfortably Resp: Other: Normal respiratory rate, no respiratory distress, clear GI: Other: Abdomen soft, nontender Extrem: Other: Wound appears clean, 3rd and 4th digit appear more normal, less disoloration, more pink Objective Data Active Medications Atorvastatin Calcium (Atorvastatin Calcium 40 Mg Tablet) 40 mg PO BEDTIME [facility] Last Admin: 04/25/23 20:31 Dose: 40 mg Documented By: REJI Cyclobenzaprine HCl (Cyclobenzaprine Hcl 5 Mg Tablet) 5 mg PO TID PRN PRN Reason: back spasm Last Admin: 04/25/23 01:00 Dose: 5 mg Documented By: KAI Dextrose (Dextrose 50 % 25 Gm/50 Ml Syringe) 25 gm IVPUSH Q15M PRN; Protocol PRN Reason: per Hypoglycemia Standing Ord. Docusate Sodium (Docusate Sodium 100 Mg Capsule) 100 mg PO DAILY PRN PRN Reason: Constipation Fentanyl (Fentanyl Citrate/Pf 100 Mcg/2 Ml Vial) 25 mcg IVPUSH Q5M PRN; Protocol PRN Reason: Pain, Moderate(Pain Scale 4-6) Last Admin: 04/23/23 15:02 Dose: 25 mcg Documented By: LINDY Glucose (Glucose Gel 15 Gm Gel..Gram.) 15 gm PO Q15M PRN; Protocol PRN Reason: per Hypoglycemia Standing Ord. Heparin Sodium (Porcine) (Heparin Sodium,Porcine 5,000 Unit/Ml Vial) 5,000 unit SUBCUT Q8H [facility] Last Admin: 04/26/23 05:47 Dose: 5,000 unit Documented By: REJI Hydromorphone HCl (Hydromorphone Hcl 0.5 Mg/0.5 Ml Syringe) 1 mg IVPUSH Q4H PRN; Protocol PRN Reason: Pain, Severe (Pain Scale 7-10) Last Admin: 04/26/23 01:14 Dose: 1 mg Documented By: REJI Meropenem 1 gm/ Sodium (Chloride) 100 mls @ 200 mls/hr IV Q8H [facility] Last Infusion: 04/26/23 01:50 Dose: 0 mls/hr Documented By: REJI Lactated Ringer's (Lr) 1,000 mls @ 100 mls/hr IVCONT .Q10H [facility] Last Admin: 04/26/23 07:57 Dose: 100 mls/hr Documented By: TONI Insulin Human Lispro (Insulin Lispro 100 Unit/Ml 3 Ml Vial) 0 unit SUBCUT QIDACHS [facility]; Protocol Last Admin: 04/26/23 07:57 Dose: 8 unit Documented By: TONI Lidocaine (Lidocaine 4 % Patch Adh..Patch) 1 patch TRANSDERMA DAILY [facility]; Protocol Last Admin: 04/26/23 07:56 Dose: 1 patch Documented By: TONI Lisinopril (Lisinopril 20 Mg Tablet) 20 mg PO DAILY [facility]; Protocol Last Admin: 04/19/23 08:08 Dose: 20 mg Documented By: KAYLA Melatonin (Melatonin 3 Mg Tablet) 6 mg PO BEDTIME PRN PRN Reason: insomnia Multivitamins/Vitamin C (Multivitamin Tablet) 1 tab PO DAILY [facility] Last Admin: 04/26/23 07:58 Dose: 1 tab Documented By: TONI Omeprazole (Omeprazole 20 Mg Capsule.) 20 mg PO DAILY@0630 [facility] Last Admin: 04/26/23 05:47 Dose: 20 mg Documented By: REJI Ondansetron HCl (Ondansetron Hcl 4 Mg/2 Ml Vial) 4 mg IVPUSH Q8H PRN PRN Reason: Nausea and Vomiting Last Admin: 04/21/23 12:20 Dose: 4 mg Documented By: DEEPTI Oxycodone HCl (Oxycodone Hcl Immed Release 5 Mg Tablet) 10 mg PO Q4H PRN PRN Reason: Pain, Severe (Pain Scale 7-10) Last Admin: 04/26/23 05:47 Dose: 10 mg Documented By: REJI Pharmacy Consult (Consult Rx Perform Med Rec) 1 each MISCELLANE ONCE PRN PRN Reason: Consult order Sodium Chloride (0.9 % Sodium Chloride Flush 3 Ml Syringe) 3 ml IVFLUSH QSHIFT [facility] Last Admin: 04/26/23 08:04 Dose: 3 ml Documented By: TONI Sodium Hypochlorite (Sodium Hypochlorite 0.25% 473 Ml Solution) 1 appl TOPICAL DAILY [facility] Last Admin: 04/25/23 09:46 Dose: 1 appl Documented By: TONI Labs 04/26/23 05:44 04/26/23 05:44 Labs: Laboratory Results - last 24 hr 04/25/23 04/25/23 04/25/23 11:00 16:10 20:19 MCV MCH MCHC RDW MPV Immature Gran % (Auto) Neut % (Auto) Lymph % (Auto) [place] % (Auto) Eos % (Auto) Baso % (Auto) Lymph # (Auto) [place] # (Auto) Eos # (Auto) Baso # (Auto) Abs Immat Gran (auto) Absolute Neuts (auto) Absolute Nucleated RBC Nucleated RBC % (auto) Neutrophils % (Manual) Band Neutrophils % Lymphocytes % (Manual) Monocytes % (Manual) Eosinophils % (Manual) Metamyelocytes % Abs Neuts (Manual) Lymphocytes # (Manual) Monocytes # (Manual) Eosinophils # (Manual) Metamyelocytes # Platelet Estimate Large Platelets Plt Morphology Comment RBC Morphology Anion Gap Estim Creat Clear Calc Estimated GFR POC Glucose 209 H 294 H 201 H Random Glucose Calcium 04/26/23 04/26/23 04/26/23 05:44 05:44 07:20 MCV 86.7 MCH 27.3 MCHC 31.5 RDW 12.9 MPV 11.3 Immature Gran % (Auto) Cancelled Neut % (Auto) Cancelled Lymph % (Auto) Cancelled [place] % (Auto) Cancelled Eos % (Auto) Cancelled Baso % (Auto) Cancelled Lymph # (Auto) Cancelled [place] # (Auto) Cancelled Eos # (Auto) Cancelled Baso # (Auto) Cancelled Abs Immat Gran (auto) Cancelled Absolute Neuts (auto) Cancelled Absolute Nucleated RBC 0.000 Nucleated RBC % (auto) 0.0 Neutrophils % (Manual) 76 H Band Neutrophils % 2 L Lymphocytes % (Manual) 12 L Monocytes % (Manual) 5 Eosinophils % (Manual) 4 Metamyelocytes % 1 Abs Neuts (Manual) 14.2 H Lymphocytes # (Manual) 2.2 Monocytes # (Manual) 0.9 Eosinophils # (Manual) 0.7 H Metamyelocytes # 0.2 Platelet Estimate SLIGHTLY DECREASED Large Platelets PRESENT Plt Morphology Comment NOTE RBC Morphology NORMAL Anion Gap 10 L Estim Creat Clear Calc 45.6 Estimated GFR 30 POC Glucose 308 H Random Glucose 283 H Calcium 8.1 L Assessment and Plan (1) Amputation of toe of right foot: Status: Acute (2) Diabetic ulcer of right foot: Status: Acute (3) Diabetic wet gangrene of the foot: Status: Acute (4) Foot osteomyelitis, left: Status: Acute Plan Pt is a 42-year-old male with a PMH significant for?HTN, HLD, non insulin-dependent diabetes type 2, and CKD stage III who presents to the ED with?right foot pain, swelling, and redness, and discoloration of his 2nd toe, now s/p right 2nd toe amputation being treated with IV antibiotics and will undergo addl surgical debridement today # Sepsis secondary to gangrenous right toe/foot wound related to diabetes - resolved - s/p right second toe amputation 04/19 and extensive debridement 04/23 - Continue IV meropeneml for total of 6 weeks ( started on 04/24) # right 2nd toe acute osteomyelitis - status post amputation on 04/19 with extensive soft tissue debridement on 04/23 - looks better today - may require further amputation, will re-evaluate over the weekend - continue IV antibiotics, will require 6 weeks of meropenem - infectious Disease following # Acute Left foot osteo - xray concerning for osteomyelitis of left foot - first distal phalanx. at this time not requiring amputation or surgical intervention - continue abx as above - ID input appreciated- will likely need 6 weeks ertapenam # Kyo-uulrljc-thdhxyect diabetes type 2, with hyperglycemia- glucose control improving - on glipizide at baseline, will continue to hold - HbA1c 10.7 pt non-compliant with diabetic diet or blood sugar monitoring - will require insulin on discharge the elevated hemoglobin A1c - contue POCs QIDACHS - Diabetic diet Hyponatremia - resolved # MERLIN on CKD - this am pt noted to have increased Cr - will start him on ivf - avoid nephrotoxic meds - follow bmp # Acute hypokalemia - resolved # normoycytic anemia likely related to chronic dz and acute inflammation - no evidence of acute bleed - will obtain ferritin, b12, folic acid and stool occult - follow cbc #HLD Continue statin # HTN - bp stable - continue holding lisinopril, resume as appropriate Full Code Attending:?Dr. perez DVT Prophylaxis:heparin patient requires ongoing inpatient hospitalization for management of gangrenous foot infection including acute surgical intervention as well as IV antibiotics and additional surgical debridement which cannot take place in lower level of care Time Spent With Patient Time: Total time managing care of this patient today ____ minutes. Quality Stroke Does the patient have a stroke diagnosis?: No VTE Prior VTE?: No VTE Risk Level:: Medical - moderate - high VTE Device Contraindication: Treatment Not Indicated VTE Drug Contraindication: N/A - Med Ordered
[2023-04-26 09:22] LABS: Ferritin 470 ng/mL (20-250)
[2023-04-26 09:34] LABS: Folate 10.1 ng/mL (> or = 4.0); Vitamin B12 1051 pg/mL (200-900)
--- NOTE | 2023-04-26 11:05 | PM.PNGS ---
Subjective Subjective Date of Service: 04/26/23 Interval history: Patient has decrease in right foot pain. Physical Exam Vital Signs: Vital Signs: Last Vital Signs Temp 98.7 F 04/26/23 07:17 Pulse 89 04/26/23 07:17 Resp 18 04/26/23 07:17 BP 121/68 04/26/23 07:17 Pulse Ox 99 04/26/23 07:17 O2 Del Method Room Air 04/26/23 07:17 BMI result Body Mass Index 30.1 Extrem: Other: Dressing was taken down and wound evaluated. Although the acute infective process has improved, patient has a significant tissue defect with visible metatarsal and plantar tendons extending very deeply and all the way down to the calcaneus with his filayed open wound. Objective Data Active Medications Atorvastatin Calcium (Atorvastatin Calcium 40 Mg Tablet) 40 mg PO BEDTIME [facility] Last Admin: 04/25/23 20:31 Dose: 40 mg Documented By: REJI Cyclobenzaprine HCl (Cyclobenzaprine Hcl 5 Mg Tablet) 5 mg PO TID PRN PRN Reason: back spasm Last Admin: 04/25/23 01:00 Dose: 5 mg Documented By: KAI Dextrose (Dextrose 50 % 25 Gm/50 Ml Syringe) 25 gm IVPUSH Q15M PRN; Protocol PRN Reason: per Hypoglycemia Standing Ord. Docusate Sodium (Docusate Sodium 100 Mg Capsule) 100 mg PO DAILY PRN PRN Reason: Constipation Fentanyl (Fentanyl Citrate/Pf 100 Mcg/2 Ml Vial) 25 mcg IVPUSH Q5M PRN; Protocol PRN Reason: Pain, Moderate(Pain Scale 4-6) Last Admin: 04/23/23 15:02 Dose: 25 mcg Documented By: LINDY Glucose (Glucose Gel 15 Gm Gel..Gram.) 15 gm PO Q15M PRN; Protocol PRN Reason: per Hypoglycemia Standing Ord. Heparin Sodium (Porcine) (Heparin Sodium,Porcine 5,000 Unit/Ml Vial) 5,000 unit SUBCUT Q8H [facility] Last Admin: 04/26/23 05:47 Dose: 5,000 unit Documented By: REJI Hydromorphone HCl (Hydromorphone Hcl 0.5 Mg/0.5 Ml Syringe) 1 mg IVPUSH Q4H PRN; Protocol PRN Reason: Pain, Severe (Pain Scale 7-10) Last Admin: 04/26/23 09:32 Dose: 1 mg Documented By: BIN Meropenem 1 gm/ Sodium (Chloride) 100 mls @ 200 mls/hr IV Q8H [facility] Last Admin: 04/26/23 10:04 Dose: 200 mls/hr Documented By: TONI Lactated Ringer's (Lr) 1,000 mls @ 100 mls/hr IVCONT .Q10H [facility] Last Admin: 04/26/23 07:57 Dose: 100 mls/hr Documented By: TONI Insulin Human Lispro (Insulin Lispro 100 Unit/Ml 3 Ml Vial) 0 unit SUBCUT QIDACHS [facility]; Protocol Last Admin: 04/26/23 07:57 Dose: 8 unit Documented By: TONI Lidocaine (Lidocaine 4 % Patch Adh..Patch) 1 patch TRANSDERMA DAILY [facility]; Protocol Last Admin: 04/26/23 07:56 Dose: 1 patch Documented By: TONI Lisinopril (Lisinopril 20 Mg Tablet) 20 mg PO DAILY [facility]; Protocol Last Admin: 04/19/23 08:08 Dose: 20 mg Documented By: KAYLA Melatonin (Melatonin 3 Mg Tablet) 6 mg PO BEDTIME PRN PRN Reason: insomnia Multivitamins/Vitamin C (Multivitamin Tablet) 1 tab PO DAILY [facility] Last Admin: 04/26/23 07:58 Dose: 1 tab Documented By: TONI Omeprazole (Omeprazole 20 Mg Capsule.Dr) 20 mg PO DAILY@0630 [facility] Last Admin: 04/26/23 05:47 Dose: 20 mg Documented By: REJI Ondansetron HCl (Ondansetron Hcl 4 Mg/2 Ml Vial) 4 mg IVPUSH Q8H PRN PRN Reason: Nausea and Vomiting Last Admin: 04/21/23 12:20 Dose: 4 mg Documented By: DEEPTI Oxycodone HCl (Oxycodone Hcl Immed Release 5 Mg Tablet) 10 mg PO Q4H PRN PRN Reason: Pain, Severe (Pain Scale 7-10) Last Admin: 04/26/23 05:47 Dose: 10 mg Documented By: REJI Pharmacy Consult (Consult Rx Perform Med Rec) 1 each MISCELLANE ONCE PRN PRN Reason: Consult order Polyethylene Glycol (Polyethylene Glycol 3350 17 Gm Powd.Pack) 17 gm PO DAILY PRN PRN Reason: constipation Sodium Chloride (0.9 % Sodium Chloride Flush 3 Ml Syringe) 3 ml IVFLUSH QSHIFT [facility] Last Admin: 04/26/23 08:04 Dose: 3 ml Documented By: TONI Sodium Hypochlorite (Sodium Hypochlorite 0.25% 473 Ml Solution) 1 appl TOPICAL DAILY [facility] Last Admin: 04/25/23 09:46 Dose: 1 appl Documented By: TONI Labs 04/26/23 05:44 04/26/23 05:44 Labs: Laboratory Results - last 24 hr 04/25/23 04/25/23 04/25/23 11:00 16:10 20:19 MCV MCH MCHC RDW Plt Count MPV Immature Gran % (Auto) Neut % (Auto) Lymph % (Auto) [place] % (Auto) Eos % (Auto) Baso % (Auto) Lymph # (Auto) [place] # (Auto) Eos # (Auto) Baso # (Auto) Abs Immat Gran (auto) Absolute Neuts (auto) Absolute Nucleated RBC Nucleated RBC % (auto) Neutrophils % (Manual) Band Neutrophils % Lymphocytes % (Manual) Monocytes % (Manual) Eosinophils % (Manual) Metamyelocytes % Abs Neuts (Manual) Lymphocytes # (Manual) Monocytes # (Manual) Eosinophils # (Manual) Metamyelocytes # Platelet Estimate Large Platelets Plt Morphology Comment RBC Morphology Anion Gap Estim Creat Clear Calc Estimated GFR POC Glucose 209 H 294 H 201 H Random Glucose Calcium Ferritin Vitamin B12 Folate 04/26/23 04/26/23 04/26/23 05:44 05:44 07:20 MCV 86.7 MCH 27.3 MCHC 31.5 RDW 12.9 Plt Count 115 L MPV 11.3 Immature Gran % (Auto) Cancelled Neut % (Auto) Cancelled Lymph % (Auto) Cancelled [place] % (Auto) Cancelled Eos % (Auto) Cancelled Baso % (Auto) Cancelled Lymph # (Auto) Cancelled [place] # (Auto) Cancelled Eos # (Auto) Cancelled Baso # (Auto) Cancelled Abs Immat Gran (auto) Cancelled Absolute Neuts (auto) Cancelled Absolute Nucleated RBC 0.000 Nucleated RBC % (auto) 0.0 Neutrophils % (Manual) 76 H Band Neutrophils % 2 L Lymphocytes % (Manual) 12 L Monocytes % (Manual) 5 Eosinophils % (Manual) 4 Metamyelocytes % 1 Abs Neuts (Manual) 14.2 H Lymphocytes # (Manual) 2.2 Monocytes # (Manual) 0.9 Eosinophils # (Manual) 0.7 H Metamyelocytes # 0.2 Platelet Estimate SLIGHTLY DECREASED Large Platelets PRESENT Plt Morphology Comment NOTE RBC Morphology NORMAL Anion Gap 10 L Estim Creat Clear Calc 45.6 Estimated GFR 30 POC Glucose 308 H Random Glucose 283 H Calcium 8.1 L Ferritin Vitamin B12 Folate 04/26/23 04/26/23 08:15 08:15 MCV MCH MCHC RDW Plt Count MPV Immature Gran % (Auto) Neut % (Auto) Lymph % (Auto) [place] % (Auto) Eos % (Auto) Baso % (Auto) Lymph # (Auto) [place] # (Auto) Eos # (Auto) Baso # (Auto) Abs Immat Gran (auto) Absolute Neuts (auto) Absolute Nucleated RBC Nucleated RBC % (auto) Neutrophils % (Manual) Band Neutrophils % Lymphocytes % (Manual) Monocytes % (Manual) Eosinophils % (Manual) Metamyelocytes % Abs Neuts (Manual) Lymphocytes # (Manual) Monocytes # (Manual) Eosinophils # (Manual) Metamyelocytes # Platelet Estimate Large Platelets Plt Morphology Comment RBC Morphology Anion Gap Estim Creat Clear Calc Estimated GFR POC Glucose Random Glucose Calcium Ferritin 470 H Vitamin B12 1051 H Folate 10.1 Procedures Date of Service Date of Service: 04/26/23 Progress Note: A&P Assessment and plan (1) Amputation of toe of right foot: Status: Acute (2) Diabetic ulcer of right foot: Status: Acute (3) Diabetic wet gangrene of the foot: Status: Acute (4) Osteomyelitis: Status: Acute Plan I broached the topic that the patient most probably has a nonhealing situation here and may indeed require a below-knee amputation. He wishes to consider a 2nd opinion and on Friday, will have for vascular consult for further evaluation. The meantime, continue local wound care in the form of Dakin's solution and IV antibiotics. Time Spent With Patient Time: Total time managing care of this patient today ____ minutes. Quality Stroke Does the patient have a stroke diagnosis?: No VTE Prior VTE?: No VTE Risk Level:: Medical - moderate - high VTE Device Contraindication: Treatment Not Indicated VTE Drug Contraindication: N/A - Med Ordered
[2023-04-26 11:27] LABS: Glucose, Whole Blood 137 mg/dL (60-115)
[2023-04-26 15:32] VITALS: BP 118/56; PULSE 95; RESP 18; TEMP 36.3; O2SAT 100
[2023-04-26 16:10] LABS: Glucose, Whole Blood 324 mg/dL (60-115)
[2023-04-26 20:34] LABS: OBS Int Ctl Valid YES; OBS1 NEGATIVE (NEGATIVE)
[2023-04-26 20:55] LABS: Glucose, Whole Blood 122 mg/dL (60-115)
[2023-04-26] MEDS: Melatonin 3 MG TABLET 6 MG PO (21:52)
[2023-04-26] MEDS: Atorvastatin Calcium 40 MG TABLET PO (21:52)
[2023-04-26 23:38] VITALS: BP 128/62; PULSE 90; RESP 18; TEMP 36.6; O2SAT 100
[2023-04-27] MEDS: Lactated Ringers 1,000 ML 100 ML IVCONT ×3 (02:53→23:53)
[2023-04-27] MEDS: oxyCODONE HCl Immed Release 5 MG TABLET 10 MG PO ×4 (03:15→21:42)
[2023-04-27] MEDS: Acetaminophen 325 MG TABLET 650 MG PO ×2 (03:16→21:42)
[2023-04-27 06:27] LABS: Basophils Absolute Auto 0.1 X10*3/uL (0.0-0.2); Basophils Percent Auto 0.3 % (0-2); Neutrophils Percent Auto 74.2 % (45-73); PLT CLUMP 1; Red Cell Distribution Width 12.7 % (11.0-16.0); SCAN SMEAR FLAG 1
[2023-04-27] MEDS: Heparin Sodium,Porcine 5,000 UNIT/ML VIAL 5000 UNIT SUBCUT ×3 (06:27→21:43)
[2023-04-27 06:28] LABS: Eosinophils Absolute Auto 0.5 X10*3/uL (0.0-0.4); Eosinophils Percent Auto 2.2 % (0-4); Hematocrit 31.6 % (42.0-52.0); Imm Gran Abs Auto 0.72 X10*3/uL (0.00-0.03); Imm Gran Pct Auto 3.2 % (0.0-0.4); Lymphocytes Absolute Auto 3.3 X10*3/uL (1.2-4.9); Lymphocytes Percent Auto 14.7 % (20-40); Mean Corpuscular HGB Conc 31.6 g/dl (31.0-36.0); Mean Corpuscular Volume 85.4 fL (80.0-98.0); Mean Platelet Volume 12.6 fL (9.4-12.4); Monocytes Absolute Auto 1.2 X10*3/uL (0.1-1.2); Monocytes Percent Auto 5.4 % (2-11); Neutrophils Absolute Auto 16.8 x10*3/uL (2.0-8.3)
[2023-04-27] MEDS: Omeprazole 20 MG CAPSULE.DR PO (06:28)
[2023-04-27 06:29] LABS: MANUAL DIFF FLAG NO; Platelet Count 113 X10*3/uL (160-400); White Blood Count 22.3 X10*3/uL (4.8-10.8)
[2023-04-27 06:46] LABS: Anion Gap 12 (12-20); Blood Urea Nitrogen 25 mg/dL (9-16); Calcium 8.8 mg/dL (8.4-10.2); Carbon Dioxide 25 mmol/L (22-29); Chloride 101 mmol/L (96-108); Creatinine Clr Calc Pharmacy 55.7; Estimated Glomerular Filt Rate 37; Glucose Random 174 mg/dL (60-115); Potassium 4.6 mmol/L (3.3-5.1); Sodium 133 mmol/L (135-145)
[2023-04-27 07:49] LABS: Glucose, Whole Blood 173 mg/dL (60-115)
[2023-04-27] MEDS: Insulin Lispro 100 UNIT/ML 3 ML VIAL SUBCUT ×4 (07:56→21:43)
[2023-04-27] MEDS: Multivitamin TABLET 1 TAB PO (07:56)
[2023-04-27 07:57] VITALS: BP 132/60; PULSE 94; RESP 20; TEMP 36.4; O2SAT 98
[2023-04-27 11:29] LABS: Glucose, Whole Blood 151 mg/dL (60-115)
--- NOTE | 2023-04-27 11:41 | HO.PM.IMPN ---
Subjective Subjective Date of Service: 04/27/23 Interval History: Seen and evaluated this morning moving around in his room Wound covered with dressing reporting pain No fever or chills No other overnight events Review of Systems Review of Systems: Yes all other systems are reviewed and are negative Physical Exam Vital Signs: Vital Signs: Last Vital Signs Temp 97.6 F 04/27/23 07:57 Pulse 94 04/27/23 07:57 Resp 20 04/27/23 07:57 BP 132/60 04/27/23 07:57 Pulse Ox 98 04/27/23 07:57 O2 Del Method Room Air 04/27/23 07:57 BMI result Body Mass Index 30.1 Const: Other: Constitutional : Awake, interactive, not in distress Neck : Normal inspection, Supple Cardiovascular : RRR, no JVP, no lower extremity edema Respiratory : good bilateral air entry, no crackles, wheezes or rhonchi Gastrointestinal: soft, lax, Normal bowel sounds, Non tender Skin : Warm, Dry, LLE covered with dressing, no significant erythema, RLE 2nd toe amputation, warmth and erythema, no drainage. Neurological : Alert & oriented x3, No focal deficit Objective Data Active Medications Acetaminophen (Acetaminophen 325 Mg Tablet) 650 mg PO Q6H PRN PRN Reason: Pain, Severe (Pain Scale 7-10) Last Admin: 04/27/23 03:16 Dose: 650 mg Documented By: DEANNA Atorvastatin Calcium (Atorvastatin Calcium 40 Mg Tablet) 40 mg PO BEDTIME LYSSA Last Admin: 04/26/23 21:52 Dose: 40 mg Documented By: DEANNA Cyclobenzaprine HCl (Cyclobenzaprine Hcl 5 Mg Tablet) 5 mg PO TID PRN PRN Reason: back spasm Last Admin: 04/25/23 01:00 Dose: 5 mg Documented By: KAI Dextrose (Dextrose 50 % 25 Gm/50 Ml Syringe) 25 gm IVPUSH Q15M PRN; Protocol PRN Reason: per Hypoglycemia Standing Ord. Docusate Sodium (Docusate Sodium 100 Mg Capsule) 100 mg PO DAILY PRN PRN Reason: Constipation Fentanyl (Fentanyl Citrate/Pf 100 Mcg/2 Ml Vial) 25 mcg IVPUSH Q5M PRN; Protocol PRN Reason: Pain, Moderate(Pain Scale 4-6) Last Admin: 04/23/23 15:02 Dose: 25 mcg Documented By: LINDY Glucose (Glucose Gel 15 Gm Gel..Gram.) 15 gm PO Q15M PRN; Protocol PRN Reason: per Hypoglycemia Standing Ord. Heparin Sodium (Porcine) (Heparin Sodium,Porcine 5,000 Unit/Ml Vial) 5,000 unit SUBCUT Q8H [facility] Last Admin: 04/27/23 06:27 Dose: 5,000 unit Documented By: DEANNA Hydromorphone HCl (Hydromorphone Hcl 0.5 Mg/0.5 Ml Syringe) 1 mg IVPUSH Q4H PRN; Protocol PRN Reason: Pain, Severe (Pain Scale 7-10) Last Admin: 04/26/23 09:32 Dose: 1 mg Documented By: BIN Meropenem 1 gm/ Sodium (Chloride) 100 mls @ 200 mls/hr IV Q8H [facility] Last Infusion: 04/27/23 09:49 Dose: 0 mls/hr Documented By: TONI Lactated Ringer's (Lr) 1,000 mls @ 100 mls/hr IVCONT .Q10H [facility] Last Admin: 04/27/23 02:53 Dose: 100 mls/hr Documented By: DEANNA Insulin Human Lispro (Insulin Lispro 100 Unit/Ml 3 Ml Vial) 0 unit SUBCUT QIDACHS [facility]; Protocol Last Admin: 04/27/23 07:56 Dose: 2 unit Documented By: TONI Lidocaine (Lidocaine 4 % Patch Adh..Patch) 1 patch TRANSDERMA DAILY [facility]; Protocol Last Admin: 04/27/23 07:57 Dose: Not Given Documented By: TONI Non-Admin Reason: Patient Refused Lisinopril (Lisinopril 20 Mg Tablet) 20 mg PO DAILY [facility]; Protocol Last Admin: 04/19/23 08:08 Dose: 20 mg Documented By: KAYLA Melatonin (Melatonin 3 Mg Tablet) 6 mg PO BEDTIME PRN PRN Reason: insomnia Last Admin: 04/26/23 21:52 Dose: 6 mg Documented By: DEANNA Multivitamins/Vitamin C (Multivitamin Tablet) 1 tab PO DAILY [facility] Last Admin: 04/27/23 07:56 Dose: 1 tab Documented By: TONI Omeprazole (Omeprazole 20 Mg Frida.) 20 mg PO DAILY@0630 [facility] Last Admin: 04/27/23 06:28 Dose: 20 mg Documented By: DEANNA Ondansetron HCl (Ondansetron Hcl 4 Mg/2 Ml Vial) 4 mg IVPUSH Q8H PRN PRN Reason: Nausea and Vomiting Last Admin: 04/21/23 12:20 Dose: 4 mg Documented By: DEEPTI Oxycodone HCl (Oxycodone Hcl Immed Release 5 Mg Tablet) 10 mg PO Q6H PRN PRN Reason: Pain, Severe (Pain Scale 7-10) Pharmacy Consult (Consult Rx Perform Med Rec) 1 each MISCELLANE ONCE PRN PRN Reason: Consult order Polyethylene Glycol (Polyethylene Glycol 3350 17 Gm Powd.Pack) 17 gm PO DAILY PRN PRN Reason: constipation Sodium Chloride (0.9 % Sodium Chloride Flush 3 Ml Syringe) 3 ml IVFLUSH QSHIFT [facility] Last Admin: 04/27/23 07:55 Dose: Not Given Documented By: TONI Non-Admin Reason: IV Running Sodium Hypochlorite (Sodium Hypochlorite 0.25% 473 Ml Solution) 1 appl TOPICAL DAILY [facility] Last Admin: 04/26/23 12:05 Dose: 1 appl Documented By: TONI Labs 04/27/23 06:05 04/27/23 06:05 Labs: Laboratory Results - last 24 hr 04/26/23 04/26/23 04/26/23 16:02 20:15 20:48 MCV MCH MCHC RDW Plt Count MPV Immature Gran % (Auto) Neut % (Auto) Lymph % (Auto) [place] % (Auto) Eos % (Auto) Baso % (Auto) Lymph # (Auto) [place] # (Auto) Eos # (Auto) Baso # (Auto) Abs Immat Gran (auto) Absolute Neuts (auto) Absolute Nucleated RBC Nucleated RBC % (auto) Anion Gap Estim Creat Clear Calc Estimated GFR POC Glucose 324 H 122 H Random Glucose Calcium Stool Occult Blood NEGATIVE 04/27/23 04/27/23 04/27/23 06:05 06:05 07:41 MCV 85.4 MCH 27.0 MCHC 31.6 RDW 12.7 Plt Count 113 L MPV 12.6 H Immature Gran % (Auto) 3.2 H Neut % (Auto) 74.2 H Lymph % (Auto) 14.7 L [place] % (Auto) 5.4 Eos % (Auto) 2.2 Baso % (Auto) 0.3 Lymph # (Auto) 3.3 [place] # (Auto) 1.2 Eos # (Auto) 0.5 H Baso # (Auto) 0.1 Abs Immat Gran (auto) 0.72 H Absolute Neuts (auto) 16.8 H Absolute Nucleated RBC 0.000 Nucleated RBC % (auto) 0.0 Anion Gap 12 Estim Creat Clear Calc 55.7 Estimated GFR 37 POC Glucose 173 H Random Glucose 174 H Calcium 8.8 D Stool Occult Blood 04/27/23 11:22 MCV MCH MCHC RDW Plt Count MPV Immature Gran % (Auto) Neut % (Auto) Lymph % (Auto) [place] % (Auto) Eos % (Auto) Baso % (Auto) Lymph # (Auto) [place] # (Auto) Eos # (Auto) Baso # (Auto) Abs Immat Gran (auto) Absolute Neuts (auto) Absolute Nucleated RBC Nucleated RBC % (auto) Anion Gap Estim Creat Clear Calc Estimated GFR POC Glucose 151 H Random Glucose Calcium Stool Occult Blood Assessment and Plan (1) Foot osteomyelitis, left: Status: Acute (2) Amputation of toe of right foot: Status: Acute (3) Diabetic ulcer of right foot: Status: Acute (4) Osteomyelitis: Status: Acute (5) Sepsis: Status: Acute Plan Pt is a 42-year-old male with a PMH significant for?HTN, HLD, non insulin-dependent diabetes type 2, and CKD stage III who presents to the ED with?right foot pain, swelling, and redness, and discoloration of his 2nd toe, now s/p right 2nd toe amputation being treated with IV antibiotics and will undergo addl surgical debridement today # Sepsis secondary to gangrenous right toe/foot wound related to diabetes s/p right second toe amputation 04/19 and extensive debridement 04/23 Continue IV meropeneml for total of 6 weeks ( started on 04/24) # right 2nd toe acute osteomyelitis status post amputation on 04/19 with extensive soft tissue debridement on 04/23 may require further amputation, will get Vascular surgery input Friday Meanwhile continue IV antibiotics, will require 6 weeks of meropenem To place a central line (David) infectious Disease following # Acute Left foot osteo xray concerning for osteomyelitis of left foot - first distal phalanx. at this time not requiring amputation or surgical intervention continue abx as above ID input appreciated- will likely need 6 weeks ertapenam # [id number] diabetes type 2, with hyperglycemia- glucose control improving HbA1c 10.7 pt non-compliant with diabetic diet or blood sugar monitoring will require insulin on discharge the elevated hemoglobin A1c contue POCs QIDACHS Diabetic diet Hyponatremia resolved # MERLIN on CKD 3 close to baseline DC IVF monitor I\O and BMP avoid nephrotoxic meds Nephro following # Acute hypokalemia resolved # normoycytic anemia likely related to chronic dz and acute inflammation no evidence of acute bleed normal ferritin, b12, folic acid and negative stool occult follow cbc #HLD Continue statin # HTN bp stable continue holding lisinopril, resume as appropriate Full Code DVT Prophylaxis:heparin patient requires ongoing inpatient hospitalization for management of gangrenous foot infection including acute surgical intervention as well as IV antibiotics and additional surgical debridement which cannot take place in lower level of care Time Spent With Patient Time: Total time managing care of this patient today ____ minutes. Quality Stroke Does the patient have a stroke diagnosis?: No VTE Prior VTE?: No VTE Risk Level:: Medical - moderate - high VTE Device Contraindication: Treatment Not Indicated VTE Drug Contraindication: N/A - Med Ordered
--- NOTE | 2023-04-27 14:35 | PM.PNGS ---
Subjective Subjective Date of Service: 04/27/23 Interval history: Minimal right foot pain. Physical Exam Vital Signs: Vital Signs: Last Vital Signs Temp 97.6 F 04/27/23 07:57 Pulse 94 04/27/23 07:57 Resp 20 04/27/23 07:57 BP 132/60 04/27/23 07:57 Pulse Ox 98 04/27/23 07:57 O2 Del Method Room Air 04/27/23 07:57 BMI result Body Mass Index 30.1 Extrem: Other: Wound was evaluated during dressing change. He is centrally status quo. Very profound folate open foot with no active acute infection demonstrated. Visualized metatarsals and plantar tendons. Objective Data Active Medications Acetaminophen (Acetaminophen 325 Mg Tablet) 650 mg PO Q6H PRN PRN Reason: Pain, Severe (Pain Scale 7-10) Last Admin: 04/27/23 03:16 Dose: 650 mg Documented By: DEANNA Atorvastatin Calcium (Atorvastatin Calcium 40 Mg Tablet) 40 mg PO BEDTIME LYSSA Last Admin: 04/26/23 21:52 Dose: 40 mg Documented By: DEANNA Cyclobenzaprine HCl (Cyclobenzaprine Hcl 5 Mg Tablet) 5 mg PO TID PRN PRN Reason: back spasm Last Admin: 04/25/23 01:00 Dose: 5 mg Documented By: KAI Dextrose (Dextrose 50 % 25 Gm/50 Ml Syringe) 25 gm IVPUSH Q15M PRN; Protocol PRN Reason: per Hypoglycemia Standing Ord. Docusate Sodium (Docusate Sodium 100 Mg Capsule) 100 mg PO DAILY PRN PRN Reason: Constipation Fentanyl (Fentanyl Citrate/Pf 100 Mcg/2 Ml Vial) 25 mcg IVPUSH Q5M PRN; Protocol PRN Reason: Pain, Moderate(Pain Scale 4-6) Last Admin: 04/23/23 15:02 Dose: 25 mcg Documented By: LINDY Glucose (Glucose Gel 15 Gm Gel..Gram.) 15 gm PO Q15M PRN; Protocol PRN Reason: per Hypoglycemia Standing Ord. Heparin Sodium (Porcine) (Heparin Sodium,Porcine 5,000 Unit/Ml Vial) 5,000 unit SUBCUT Q8H [facility] Last Admin: 04/27/23 14:08 Dose: 5,000 unit Documented By: TONI Hydromorphone HCl (Hydromorphone Hcl 0.5 Mg/0.5 Ml Syringe) 1 mg IVPUSH Q4H PRN; Protocol PRN Reason: Pain, Severe (Pain Scale 7-10) Last Admin: 04/26/23 09:32 Dose: 1 mg Documented By: BIN Meropenem 1 gm/ Sodium (Chloride) 100 mls @ 200 mls/hr IV Q8H [facility] Last Infusion: 04/27/23 09:49 Dose: 0 mls/hr Documented By: TONI Lactated Ringer's (Lr) 1,000 mls @ 100 mls/hr IVCONT .Q10H [facility] Last Admin: 04/27/23 13:51 Dose: 100 mls/hr Documented By: TONI Insulin Human Lispro (Insulin Lispro 100 Unit/Ml 3 Ml Vial) 0 unit SUBCUT QIDACHS [facility]; Protocol Last Admin: 04/27/23 11:55 Dose: 2 unit Documented By: TONI Lidocaine (Lidocaine 4 % Patch Adh..Patch) 1 patch TRANSDERMA DAILY [facility]; Protocol Last Admin: 04/27/23 07:57 Dose: Not Given Documented By: TONI Non-Admin Reason: Patient Refused Lisinopril (Lisinopril 20 Mg Tablet) 20 mg PO DAILY [facility]; Protocol Last Admin: 04/19/23 08:08 Dose: 20 mg Documented By: KAYLA Melatonin (Melatonin 3 Mg Tablet) 6 mg PO BEDTIME PRN PRN Reason: insomnia Last Admin: 04/26/23 21:52 Dose: 6 mg Documented By: DEANNA Multivitamins/Vitamin C (Multivitamin Tablet) 1 tab PO DAILY [facility] Last Admin: 04/27/23 07:56 Dose: 1 tab Documented By: TONI Omeprazole (Omeprazole 20 Mg Capsule.Dr) 20 mg PO DAILY@0630 [facility] Last Admin: 04/27/23 06:28 Dose: 20 mg Documented By: DEANNA Ondansetron HCl (Ondansetron Hcl 4 Mg/2 Ml Vial) 4 mg IVPUSH Q8H PRN PRN Reason: Nausea and Vomiting Last Admin: 04/21/23 12:20 Dose: 4 mg Documented By: DEEPTI Oxycodone HCl (Oxycodone Hcl Immed Release 5 Mg Tablet) 10 mg PO Q6H PRN PRN Reason: Pain, Severe (Pain Scale 7-10) Pharmacy Consult (Consult Rx Perform Med Rec) 1 each MISCELLANE ONCE PRN PRN Reason: Consult order Polyethylene Glycol (Polyethylene Glycol 3350 17 Gm Powd.Pack) 17 gm PO DAILY PRN PRN Reason: constipation Sodium Chloride (0.9 % Sodium Chloride Flush 3 Ml Syringe) 3 ml IVFLUSH QSHIFT [facility] Last Admin: 04/27/23 07:55 Dose: Not Given Documented By: TONI Non-Admin Reason: IV Running Sodium Hypochlorite (Sodium Hypochlorite 0.25% 473 Ml Solution) 1 appl TOPICAL DAILY [facility] Last Admin: 04/27/23 13:51 Dose: 1 appl Documented By: TONI Labs 04/27/23 06:05 04/27/23 06:05 Labs: Laboratory Results - last 24 hr 04/26/23 04/26/23 04/26/23 16:02 20:15 20:48 MCV MCH MCHC RDW Plt Count MPV Immature Gran % (Auto) Neut % (Auto) Lymph % (Auto) [place] % (Auto) Eos % (Auto) Baso % (Auto) Lymph # (Auto) [place] # (Auto) Eos # (Auto) Baso # (Auto) Abs Immat Gran (auto) Absolute Neuts (auto) Absolute Nucleated RBC Nucleated RBC % (auto) Anion Gap Estim Creat Clear Calc Estimated GFR POC Glucose 324 H 122 H Random Glucose Calcium Stool Occult Blood NEGATIVE 04/27/23 04/27/23 04/27/23 06:05 06:05 07:41 MCV 85.4 MCH 27.0 MCHC 31.6 RDW 12.7 Plt Count 113 L MPV 12.6 H Immature Gran % (Auto) 3.2 H Neut % (Auto) 74.2 H Lymph % (Auto) 14.7 L [place] % (Auto) 5.4 Eos % (Auto) 2.2 Baso % (Auto) 0.3 Lymph # (Auto) 3.3 [place] # (Auto) 1.2 Eos # (Auto) 0.5 H Baso # (Auto) 0.1 Abs Immat Gran (auto) 0.72 H Absolute Neuts (auto) 16.8 H Absolute Nucleated RBC 0.000 Nucleated RBC % (auto) 0.0 Anion Gap 12 Estim Creat Clear Calc 55.7 Estimated GFR 37 POC Glucose 173 H Random Glucose 174 H Calcium 8.8 D Stool Occult Blood 04/27/23 11:22 MCV MCH MCHC RDW Plt Count MPV Immature Gran % (Auto) Neut % (Auto) Lymph % (Auto) [place] % (Auto) Eos % (Auto) Baso % (Auto) Lymph # (Auto) [place] # (Auto) Eos # (Auto) Baso # (Auto) Abs Immat Gran (auto) Absolute Neuts (auto) Absolute Nucleated RBC Nucleated RBC % (auto) Anion Gap Estim Creat Clear Calc Estimated GFR POC Glucose 151 H Random Glucose Calcium Stool Occult Blood Procedures Date of Service Date of Service: 04/27/23 Progress Note: A&P Assessment and plan (1) Amputation of toe of right foot: Status: Acute (2) Diabetic ulcer of right foot: Status: Acute (3) Diabetic wet gangrene of the foot: Status: Acute Plan Continue local wound changes. For vascular consult tomorrow for a evaluation for arterial inflow and 2nd opinion regarding consideration for BKA Time Spent With Patient Time: Total time managing care of this patient today ____ minutes. Quality Stroke Does the patient have a stroke diagnosis?: No VTE Prior VTE?: No VTE Risk Level:: Medical - moderate - high VTE Device Contraindication: Treatment Not Indicated VTE Drug Contraindication: N/A - Med Ordered
[2023-04-27 16:00] VITALS: BP 116/55; PULSE 81; RESP 20; TEMP 36.5; O2SAT 98
[2023-04-27 16:21] LABS: Glucose, Whole Blood 189 mg/dL (60-115)
[2023-04-27 20:34] LABS: Glucose, Whole Blood 151 mg/dL (60-115)
[2023-04-27] MEDS: Melatonin 3 MG TABLET 6 MG PO (21:43)
[2023-04-27] MEDS: Atorvastatin Calcium 40 MG TABLET PO (21:43)
[2023-04-28] VITALS: BP 131/67; PULSE 94; RESP 16; TEMP 36.7; O2SAT 99
[2023-04-28] MEDS: oxyCODONE HCl Immed Release 5 MG TABLET 10 MG PO ×2 (03:02→20:48)
[2023-04-28] MEDS: Heparin Sodium,Porcine 5,000 UNIT/ML VIAL 5000 UNIT SUBCUT ×3 (04:48→20:48)
[2023-04-28] MEDS: Omeprazole 20 MG CAPSULE.DR PO (04:48)
[2023-04-28] MEDS: Cyclobenzaprine HCl 5 MG TABLET PO (04:51)
[2023-04-28] MEDS: Acetaminophen 325 MG TABLET 650 MG PO ×2 (04:52→20:48)
[2023-04-28 07:18] LABS: Anion Gap 9 (12-20); Blood Urea Nitrogen 21 mg/dL (9-16); Calcium 9.6 mg/dL (8.4-10.2); Carbon Dioxide 30 mmol/L (22-29); Chloride 100 mmol/L (96-108); Creatinine Clr Calc Pharmacy 57.7; Estimated Glomerular Filt Rate 39; Glucose Random 138 mg/dL (60-115); Potassium 5.2 mmol/L (3.3-5.1); Sodium 134 mmol/L (135-145)
[2023-04-28 07:24] LABS: Glucose, Whole Blood 144 mg/dL (60-115)
[2023-04-28 07:29] VITALS: BP 128/73; PULSE 99; RESP 18; TEMP 36.5; O2SAT 100
--- NOTE | 2023-04-28 08:00 | CONS_ITS ---
DATE OF SERVICE: 04/27/2023 HISTORY OF PRESENT ILLNESS: I was asked to see patient to assist in evaluation and management of patient's chronic kidney disease as reflected by serum creatinine that ranges in the 1.7 to 2.5 range over the past year, now admitted to the hospital with a diabetic foot infection and needs a long-term antibiotics of 6 weeks and a question of whether he can get a PICC line. I would recommend not using a PICC line, but rather a Dietrich because he is at high risk of needing dialysis in the future and the PICC line would cause potentially irreversible damage of his veins precluding the use of an AV fistula in that arm. Therefore would recommend the Dietrich. In summary, he is a 42-year-old gentleman known to me with advanced chronic kidney disease, baseline creatinine around 2, with a history of diabetes, hypertension, who presented to the hospital with a swollen red right foot and discolored 2nd toe. He has been evaluated by ID and started on antibiotics and will need a 6-week course of antibiotics for osteomyelitis. PAST MEDICAL HISTORY: As mentioned, includes diabetes, hypertension, stage IIIB chronic kidney disease, and obstructive sleep apnea are all listed. MEDICATIONS: His medications on admission are noted in the records. His current medications are noted the MAR. SOCIAL HISTORY: He is a smoker. No alcohol or illicit drug use. Denies taking NSAIDs. FAMILY HISTORY: As noted above. REVIEW OF SYSTEMS: As noted above. PHYSICAL EXAMINATION: VITAL SIGNS: Blood pressure of 130/60, heart rate in the 90s. HEAD: Atraumatic and normocephalic. NECK: Supple. Mucous membranes are moist. LUNGS: Clear. CARDIAC: Regular rate and rhythm. ABDOMEN: Soft, nontender. Good bowel sounds. No CVA tenderness. EXTREMITIES: The right foot dressing in place. LABORATORY DATA: Today, sodium 133, potassium 4.6, chloride 101, bicarb 25, BUN 25, creatinine 1.96. As mentioned, his creatinine has been anywhere from 1.8 to 2.5 over the past year. Interestingly, he also had significant hyponatremia, serum sodium 118 on admission. Hemoglobin 10, hematocrit 31.6, white blood cell count 22.3. His urine albumin to creatinine ratio has been markedly elevated with anywhere from 2.7 to 4.3 g of albumin per gram of creatinine. IMPRESSION: 42-YEAR-OLD DIABETIC, HYPERTENSIVE PATIENT WITH DIABETIC FOOT INFECTION WITH OSTEOMYELITIS THAT IS GOING TO REQUIRE 6 WEEKS OF IV ANTIBIOTICS. 1. Advanced stage IIIB chronic kidney disease. As mentioned, baseline creatinine is 1.7 to 2.5 range. He has had nephrotic range proteinuria, and this portends a very bad prognosis renal boggs for risk of progression to end-stage renal disease within the next 12 to 24 months. His history is most consistent with underlying diabetic hypertensive renal disease based on the outpatient workup. 2. Nephrotic range proteinuria. As mentioned, is consistent with diabetic nephropathy based on the workup done as an outpatient. 3. Osteomyelitis and need for 6 weeks of antibiotics. Again, we would recommend a Dietrich, not a PICC line given that there is a high likelihood of him ending up on renal placement therapy in the next 12 to 24 months. 4. 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 We will check an intact PTH, vitamin D, and phosphorus level. 5. Interventions to delay progression of kidney disease. Our approach in this is use of CLINT inhibitor or an ARB. Is currently on lisinopril, which we would continue for delayed renal progression. Would not use Farxiga at this time given the ongoing infection. Stressed the importance of no NSAIDs and strict blood pressure and blood sugar control. RECOMMENDATIONS: At this time include the following. 1. Obtain urine for protein creatinine ratio. 2. Avoid nephrotoxins. 3. Use a Dietrich and not a PICC line for IV access for his antibiotics. 4. Protect his nondominant arm for future AV fistula. 5. Obtain intact PTH as may need active vitamin D therapy in the form of calcitriol. 6. We will follow the patient closely with the team. MD MANOLO Vargas/KENNEDY / [id number]
[2023-04-28] MEDS: Sodium Zirconium Cyclosilicate 5 GM POWD.PACK PO (08:20)
[2023-04-28 08:22] LABS: Hematocrit 30.9 % (42.0-52.0); Hemoglobin 9.8 g/dl (14.0-18.0); Mean Corpuscular HGB Conc 31.7 g/dl (31.0-36.0); Mean Corpuscular Hemoglobin 27.8 pg (27.0-33.0); Mean Corpuscular Volume 87.8 fL (80.0-98.0); Platelet Count 168 X10*3/uL (160-400); Red Blood Count 3.52 X10*6/uL (4.60-5.80)
--- NOTE | 2023-04-28 09:19 | P.PNIM_ITS ---
Subjective Subjective Date of Service: 04/28/23 Interval History: Seen and evaluated this morning Feels better overall, anxious about losing his foot Wound covered with dressing reporting pain fairly controlled No fever or chills No other overnight events Review of Systems Review of Systems: Yes all other systems are reviewed and are negative Physical Exam Vital Signs: Vital Signs: Last Vital Signs Temp 97.7 F 04/28/23 07:29 Pulse 99 04/28/23 07:29 Resp 18 04/28/23 07:29 BP 128/73 04/28/23 07:29 Pulse Ox 100 04/28/23 07:29 O2 Del Method Room Air 04/28/23 07:29 BMI result Body Mass Index 30.1 Const: Other: Constitutional : Awake, interactive, not in distress Neck : Normal inspection, Supple Cardiovascular : RRR, no JVP, no lower extremity edema Respiratory : good bilateral air entry, no crackles, wheezes or rhonchi Gastrointestinal: soft, lax, Normal bowel sounds, Non tender Skin : Warm, Dry, LLE covered with dressing, no significant erythema, RLE 2nd to e amputation, less warmth and erythema, no drainage. Neurological : Alert & oriented x3, No focal deficit Objective Data Active Medications Acetaminophen (Acetaminophen 325 Mg Tablet) 650 mg PO Q6H PRN PRN Reason: Pain, Severe (Pain Scale 7-10) Last Admin: 04/28/23 04:52 Dose: 650 mg Documented By: DEANNA Atorvastatin Calcium (Atorvastatin Calcium 40 Mg Tablet) 40 mg PO BEDTIME LYSSA Last Admin: 04/27/23 21:43 Dose: 40 mg Documented By: DEANNA Cyclobenzaprine HCl (Cyclobenzaprine Hcl 5 Mg Tablet) 5 mg PO TID PRN PRN Reason: back spasm Last Admin: 04/28/23 04:51 Dose: 5 mg Documented By: DEANNA Dextrose (Dextrose 50 % 25 Gm/50 Ml Syringe) 25 gm IVPUSH Q15M PRN; Protocol PRN Reason: per Hypoglycemia Standing Ord. Docusate Sodium (Docusate Sodium 100 Mg Capsule) 100 mg PO DAILY PRN PRN Reason: Constipation Fentanyl (Fentanyl Citrate/Pf 100 Mcg/2 Ml Vial) 25 mcg IVPUSH Q5M PRN; Protocol PRN Reason: Pain, Moderate(Pain Scale 4-6) Last Admin: 04/23/23 15:02 Dose: 25 mcg Documented By: LINDY Glucose (Glucose Gel 15 Gm Gel..Gram.) 15 gm PO Q15M PRN; Protocol PRN Reason: per Hypoglycemia Standing Ord. Heparin Sodium (Porcine) (Heparin Sodium,Porcine 5,000 Unit/Ml Vial) 5,000 unit SUBCUT Q8H [facility] Last Admin: 04/28/23 04:48 Dose: 5,000 unit Documented By: DEANNA Hydromorphone HCl (Hydromorphone Hcl 0.5 Mg/0.5 Ml Syringe) 1 mg IVPUSH Q4H PRN; Protocol PRN Reason: Pain, Severe (Pain Scale 7-10) Last Admin: 04/26/23 09:32 Dose: 1 mg Documented By: BIN Meropenem 1 gm/ Sodium (Chloride) 100 mls @ 200 mls/hr IV Q8H [facility] Last Admin: 04/28/23 08:21 Dose: 200 mls/hr Documented By: HARI Insulin Human Lispro (Insulin Lispro 100 Unit/Ml 3 Ml Vial) 0 unit SUBCUT QIDACHS [facility]; Protocol Last Admin: 04/28/23 07:35 Dose: Not Given Documented By: HARI Non-Admin Reason: No Insulin Coverage Lidocaine (Lidocaine 4 % Patch Adh..Patch) 1 patch TRANSDERMA DAILY [facility]; Protocol Last Admin: 04/27/23 07:57 Dose: Not Given Documented By: TONI Non-Admin Reason: Patient Refused Lisinopril (Lisinopril 20 Mg Tablet) 20 mg PO DAILY [facility]; Protocol Last Admin: 04/19/23 08:08 Dose: 20 mg Documented By: KAYLA Melatonin (Melatonin 3 Mg Tablet) 6 mg PO BEDTIME PRN PRN Reason: insomnia Last Admin: 04/27/23 21:43 Dose: 6 mg Documented By: DEANNA Multivitamins/Vitamin C (Multivitamin Tablet) 1 tab PO DAILY [facility] Last Admin: 04/27/23 07:56 Dose: 1 tab Documented By: TONI Omeprazole (Omeprazole 20 Mg Capsule.) 20 mg PO DAILY@0630 [facility] Last Admin: 04/28/23 04:48 Dose: 20 mg Documented By: DEANNA Ondansetron HCl (Ondansetron Hcl 4 Mg/2 Ml Vial) 4 mg IVPUSH Q8H PRN PRN Reason: Nausea and Vomiting Last Admin: 04/21/23 12:20 Dose: 4 mg Documented By: DEEPTI Oxycodone HCl (Oxycodone Hcl Immed Release 5 Mg Tablet) 10 mg PO Q4H PRN PRN Reason: Pain, Severe (Pain Scale 7-10) Last Admin: 04/28/23 03:02 Dose: 10 mg Documented By: DEANNA Pharmacy Consult (Consult Rx Perform Med Rec) 1 each MISCELLANE ONCE PRN PRN Reason: Consult order Polyethylene Glycol (Polyethylene Glycol 3350 17 Gm Powd.Pack) 17 gm PO DAILY PRN PRN Reason: constipation Sodium Chloride (0.9 % Sodium Chloride Flush 3 Ml Syringe) 3 ml IVFLUSH QSHIFT [facility] Last Admin: 04/28/23 07:36 Dose: Not Given Documented By: HARI Non-Admin Reason: IV Running Sodium Hypochlorite (Sodium Hypochlorite 0.25% 473 Ml Solution) 1 appl TOPICAL DAILY [facility] Last Admin: 04/27/23 13:51 Dose: 1 appl Documented By: TONI Labs 04/28/23 06:31 04/28/23 06:31 Labs: Laboratory Results - last 24 hr 04/27/23 04/27/23 04/27/23 11:22 16:17 20:30 MCV MCH MCHC RDW Plt Count MPV Absolute Nucleated RBC Nucleated RBC % (auto) PT INR Anion Gap Estim Creat Clear Calc Estimated GFR POC Glucose 151 H 189 H 151 H Random Glucose Calcium 04/28/23 04/28/23 04/28/23 06:31 06:31 06:31 MCV 87.8 MCH 27.8 MCHC 31.7 RDW 13.0 Plt Count 168 D MPV 11.0 Absolute Nucleated RBC 0.000 Nucleated RBC % (auto) 0.0 PT 11.0 INR 1.0 Anion Gap 9 L Estim Creat Clear Calc 57.7 Estimated GFR 39 POC Glucose Random Glucose 138 H Calcium 9.6 D 04/28/23 07:03 MCV MCH MCHC RDW Plt Count MPV Absolute Nucleated RBC Nucleated RBC % (auto) PT INR Anion Gap Estim Creat Clear Calc Estimated GFR POC Glucose 144 H Random Glucose Calcium Assessment and Plan (1) Foot osteomyelitis, left: Status: Acute (2) Amputation of toe of right foot: Status: Acute (3) Diabetic wet gangrene of the foot: Status: Acute (4) Hyperglycemia: Status: Acute (5) Hyperglycemia due to type 2 diabetes mellitus: Status: Acute Plan Pt is a 42-year-old male with a PMH significant for?HTN, HLD, non insulin- dependent diabetes type 2, and CKD stage III who presents to the ED with?right foot pain, swelling, and redness, and discoloration of his 2nd toe, now s/p right 2nd toe amputation being treated with IV antibiotics and will undergo addl surgical debridement today # Sepsis secondary to gangrenous right toe/foot wound and left foot Osteomyelitis related to diabetes s/p right second toe amputation 04/19 and extensive debridement 04/23 xray concerning for osteomyelitis of left foot - first distal phalanx. Continue IV meropeneml for total of 6 weeks ( started on 04/24) concerns over non-healing wound Pending vascular eval for a 2nd opinion today # right 2nd toe acute osteomyelitis status post amputation on 04/19 with extensive soft tissue debridement on 04/23 may require further amputation, will get Vascular surgery input Friday Meanwhile continue IV antibiotics, will require 6 weeks of meropenem To place a central line (Adamkmann) infectious Disease following # [id number] diabetes type 2, with hyperglycemia- glucose control improving HbA1c 10.7 pt non-compliant with diabetic diet or blood sugar monitoring will require insulin on discharge contue POCs QIDACHS , SSI Diabetic diet # Hyponatremia resolved # MERLIN on CKD 3 close to baseline monitor I\O and BMP Nephro following # Acute hypokalemia resolved # normoycytic anemia likely related to chronic illness and acute inflammation normal ferritin, b12, folic acid and negative stool occult follow cbc #HLD Continue statin # HTN bp stable continue holding lisinopril, resume as appropriate Full Code DVT Prophylaxis:heparin patient requires ongoing inpatient hospitalization for management of gangrenous foot infection including acute surgical intervention as well as IV antibiotics and additional surgical debridement which cannot take place in lower level of ca re Time Spent With Patient Time: Total time managing care of this patient today ____ minutes. Quality Stroke Does the patient have a stroke diagnosis?: No VTE Prior VTE?: No VTE Risk Level:: Medical - moderate - high VTE Device Contraindication: Treatment Not Indicated VTE Drug Contraindication: N/A - Med Ordered
--- NOTE | 2023-04-28 09:28 | PC.NURSE ---
Pt instructed on NPO status several times in preparation for timmons cath placement . pt verbalized understanding
[2023-04-28] MEDS: HYDROmorphone HCl 0.5 MG/0.5 ML SYRINGE 1 MG IVPUSH ×2 (10:40→14:53)
--- NOTE | 2023-04-28 10:53 | MHC.CM.PN ---
Per MD rounds a 2nd vascular opinion is pending. Patient is recommended for a BKA. He will have a Dietrich inserted today at 1pm. DP home vs STR for IV ABX. Vial BLS vs family transport.
--- NOTE | 2023-04-28 11:09 | PM.PNNEP ---
Subjective Subjective Date of Service: 04/29/23 Interval history: Seen and evaluated this morning Family at bedside. Resident overall feeling okay. Physical Exam Vital Signs: Vital Signs: Last Vital Signs Temp 97.7 F 04/28/23 07:29 Pulse 99 04/28/23 07:29 Resp 18 04/28/23 07:29 BP 128/73 04/28/23 07:29 Pulse Ox 100 04/28/23 07:29 O2 Del Method Room Air 04/28/23 07:29 BMI result Body Mass Index 30.1 Comfortable Neck is supple Lung: Air entry equal Heart: S1,S2, normal. No rub Abd: Soft. BS + NS : Alert.No asterexis Ext: No edema Objective Data Labs 04/28/23 06:31 04/28/23 06:31 Labs: Laboratory Results - last 24 hr 04/27/23 04/27/23 04/27/23 11:22 16:17 20:30 WBC RBC Hgb Hct MCV MCH MCHC RDW Plt Count MPV Absolute Nucleated RBC Nucleated RBC % (auto) PT INR Sodium Potassium Chloride Carbon Dioxide Anion Gap BUN Creatinine Estim Creat Clear Calc Estimated GFR POC Glucose 151 H 189 H 151 H Random Glucose Calcium 04/28/23 04/28/23 04/28/23 06:31 06:31 06:31 WBC 19.0 H RBC 3.52 L Hgb 9.8 L Hct 30.9 L MCV 87.8 MCH 27.8 MCHC 31.7 RDW 13.0 Plt Count 168 D MPV 11.0 Absolute Nucleated RBC 0.000 Nucleated RBC % (auto) 0.0 PT 11.0 INR 1.0 Sodium 134 L Potassium 5.2 H Chloride 100 Carbon Dioxide 30 H Anion Gap 9 L BUN 21 H Creatinine 1.89 H Estim Creat Clear Calc 57.7 Estimated GFR 39 POC Glucose Random Glucose 138 H Calcium 9.6 D 04/28/23 07:03 WBC RBC Hgb Hct MCV MCH MCHC RDW Plt Count MPV Absolute Nucleated RBC Nucleated RBC % (auto) PT INR Sodium Potassium Chloride Carbon Dioxide Anion Gap BUN Creatinine Estim Creat Clear Calc Estimated GFR POC Glucose 144 H Random Glucose Calcium Microbiology Microbiology Results: Microbiology 04/18/23 18:24 Blood - Venous Blood Culture - Final No growth after 5 days. 04/18/23 18:24 Blood - Venous Blood Culture - Final No growth after 5 days. 04/19/23 14:46 Toe Gram Stain - Final 04/19/23 14:46 Toe Routine Culture - Final Strep agalactiae (Grp B) Procedures Date of Service Date of Service: 04/29/23 Assessment & Plan Assessment and plan (1) CKD (chronic kidney disease) stage 3, GFR 30-59 ml/min: Status: Acute Plan 42-YEAR-OLD DIABETIC, HYPERTENSIVE PATIENT WITH DIABETIC FOOT INFECTION WITH OSTEOMYELITIS THAT IS GOING TO REQUIRE 6 WEEKS OF IV ANTIBIOTICS. 1. Advanced stage IIIB chronic kidney disease.? As mentioned, baseline creatinine is 1.7 to 2.5 range.? 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 Osteomyelitis and need for 6 weeks of antibiotics.? recommend a Dietrich, not a PICC line given that there is a high likelihood of him ending up on renal placement therapy in the next 12 to 24 months. 4. 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 check an intact PTH, vitamin D, and phosphorus level. 5. Interventions to delay progression of kidney disease.? Our approach in this is use of CLINT inhibitor or an ARB.? Is currently on lisinopril, which we would continue for delayed renal progression.? Would not use Farxiga at this time given the ongoing infection.? Stressed the importance of no NSAIDs and strict blood pressure and blood sugar control. 6.. Mild hyperkalemia. Keep on low-potassium diet. Use Lokelma if potassium more than 5.3 millimoles. ?7. Mild hyponatremia due to decreased free water clearance in the setting of CKD. Restrict oral free water intake. Time Spent With Patient Time: Total time managing care of this patient today ____ minutes. Progress Note: Quality Stroke Does the patient have a stroke diagnosis?: No
[2023-04-28 11:17] LABS: Glucose, Whole Blood 140 mg/dL (60-115)
--- NOTE | 2023-04-28 11:35 | P.PNGS_ITS ---
Subjective Subjective Date of Service: 04/28/23 <Rolanda Steel PA-C - Last Filed: 04/28/23 11:40> 04/30/23 <Matteo Schneider MD - Last Filed: 04/30/23 08:15> Interval history: Pain controlled. Awaiting hickmann cath today. <Rolanda Steel PA-C - Last Filed: 04/28/23 11:40> Physical Exam Vital Signs: Vital Signs: Last Vital Signs Temp 97.7 F 04/28/23 07:29 Pulse 99 04/28/23 07:29 Resp 18 04/28/23 07:29 BP 128/73 04/28/23 07:29 Pulse Ox 100 04/28/23 07:29 O2 Del Method Room Air 04/28/23 07:29 BMI result Body Mass Index 30.1 <HENRRY Andrade Last Filed: 04/28/23 11:40> Const: General: comfortable, no acute distress and alert <Rolanda Steel PA-C - Last Filed: 04/28/23 11:40> Resp: Effort & Inspection: normal respiratory effort <Rolanda Steel PA-C - Last Filed: 04/28/23 11:40> Skin: General skin exam: no rashes or lesions noted <Rolanda Steel PA-C - Last Filed: 04/28/23 11:40> Extrem: Other: right foot- no significant gangrenous tissue of wound site, third and fourth toes do not appear viable, some granulation, no purulent drainage <Rolanda Steel PA-C - Last Filed: 04/28/23 11:40> Objective Data Active Medications Acetaminophen (Acetaminophen 325 Mg Tablet) 650 mg PO Q6H PRN PRN Reason: Pain, Severe (Pain Scale 7-10) Last Admin: 04/28/23 04:52 Dose: 650 mg Documented By: DEANNA Atorvastatin Calcium (Atorvastatin Calcium 40 Mg Tablet) 40 mg PO BEDTIME LYSSA Last Admin: 04/27/23 21:43 Dose: 40 mg Documented By: DEANNA Cyclobenzaprine HCl (Cyclobenzaprine Hcl 5 Mg Tablet) 5 mg PO TID PRN PRN Reason: back spasm Last Admin: 04/28/23 04:51 Dose: 5 mg Documented By: DEANNA Dextrose (Dextrose 50 % 25 Gm/50 Ml Syringe) 25 gm IVPUSH Q15M PRN; Protocol PRN Reason: per Hypoglycemia Standing Ord. Docusate Sodium (Docusate Sodium 100 Mg Capsule) 100 mg PO DAILY PRN PRN Reason: Constipation Fentanyl (Fentanyl Citrate/Pf 100 Mcg/2 Ml Vial) 25 mcg IVPUSH Q5M PRN; Protocol PRN Reason: Pain, Moderate(Pain Scale 4-6) Last Admin: 04/23/23 15:02 Dose: 25 mcg Documented By: LINDY Glucose (Glucose Gel 15 Gm Gel..Gram.) 15 gm PO Q15M PRN; Protocol PRN Reason: per Hypoglycemia Standing Ord. Heparin Sodium (Porcine) (Heparin Sodium,Porcine 5,000 Unit/Ml Vial) 5,000 unit SUBCUT Q8H [facility] Last Admin: 04/28/23 04:48 Dose: 5,000 unit Documented By: DEANNA Hydromorphone HCl (Hydromorphone Hcl 0.5 Mg/0.5 Ml Syringe) 1 mg IVPUSH Q4H PRN; Protocol PRN Reason: Pain, Severe (Pain Scale 7-10) Last Admin: 04/28/23 10:40 Dose: 1 mg Documented By: HARI Meropenem 1 gm/ Sodium (Chloride) 100 mls @ 200 mls/hr IV Q8H [facility] Last Infusion: 04/28/23 09:37 Dose: 0 mls/hr Documented By: HARI Insulin Human Lispro (Insulin Lispro 100 Unit/Ml 3 Ml Vial) 0 unit SUBCUT QIDACHS [facility]; Protocol Last Admin: 04/28/23 07:35 Dose: Not Given Documented By: HARI Non-Admin Reason: No Insulin Coverage Lidocaine (Lidocaine 4 % Patch Adh..Patch) 1 patch TRANSDERMA DAILY [facility]; Protocol Last Admin: 04/27/23 07:57 Dose: Not Given Documented By: TONI Non-Admin Reason: Patient Refused Lisinopril (Lisinopril 20 Mg Tablet) 20 mg PO DAILY [facility]; Protocol Last Admin: 04/19/23 08:08 Dose: 20 mg Documented By: HO.GUILMAT Melatonin (Melatonin 3 Mg Tablet) 6 mg PO BEDTIME PRN PRN Reason: insomnia Last Admin: 04/27/23 21:43 Dose: 6 mg Documented By: DEANNA Multivitamins/Vitamin C (Multivitamin Tablet) 1 tab PO DAILY [facility] Last Admin: 04/27/23 07:56 Dose: 1 tab Documented By: TONI Omeprazole (Omeprazole 20 Mg Capsule.Dr) 20 mg PO DAILY@0630 [facility] Last Admin: 04/28/23 04:48 Dose: 20 mg Documented By: DEANNA Ondansetron HCl (Ondansetron Hcl 4 Mg/2 Ml Vial) 4 mg IVPUSH Q8H PRN PRN Reason: Nausea and Vomiting Last Admin: 04/21/23 12:20 Dose: 4 mg Documented By: DEEPTI Oxycodone HCl (Oxycodone Hcl Immed Release 5 Mg Tablet) 10 mg PO Q4H PRN PRN Reason: Pain, Severe (Pain Scale 7-10) Last Admin: 04/28/23 03:02 Dose: 10 mg Documented By: DEANNA Pharmacy Consult (Consult Rx Perform Med Rec) 1 each MISCELLANE ONCE PRN PRN Reason: Consult order Polyethylene Glycol (Polyethylene Glycol 3350 17 Gm Powd.Pack) 17 gm PO DAILY PRN PRN Reason: constipation Sodium Chloride (0.9 % Sodium Chloride Flush 3 Ml Syringe) 3 ml IVFLUSH QSHIFT [facility] Last Admin: 04/28/23 07:36 Dose: Not Given Documented By: HARI Non-Admin Reason: IV Running Sodium Hypochlorite (Sodium Hypochlorite 0.25% 473 Ml Solution) 1 appl TOPICAL DAILY [facility] Last Admin: 04/28/23 10:23 Dose: 1 appl Documented By: HARI <Rolanda Steel PA-C - Last Filed: 04/28/23 11:40> Labs CBC & Chem 7: 04/28/23 06:31 04/28/23 06:31 <Rolanda Steel PA-C - Last Filed: 04/28/23 11:40> Labs: Laboratory Results - last 24 hr 04/27/23 04/27/23 04/28/23 16:17 20:30 06:31 MCV MCH MCHC RDW Plt Count MPV Absolute Nucleated RBC Nucleated RBC % (auto) PT 11.0 INR 1.0 Anion Gap Estim Creat Clear Calc Estimated GFR POC Glucose 189 H 151 H Random Glucose Calcium 04/28/23 04/28/23 04/28/23 06:31 06:31 07:03 MCV 87.8 MCH 27.8 MCHC 31.7 RDW 13.0 Plt Count 168 D MPV 11.0 Absolute Nucleated RBC 0.000 Nucleated RBC % (auto) 0.0 PT INR Anion Gap 9 L Estim Creat Clear Calc 57.7 Estimated GFR 39 POC Glucose 144 H Random Glucose 138 H Calcium 9.6 D 04/28/23 11:13 MCV MCH MCHC RDW Plt Count MPV Absolute Nucleated RBC Nucleated RBC % (auto) PT INR Anion Gap Estim Creat Clear Calc Estimated GFR POC Glucose 140 H Random Glucose Calcium <Rolanda Steel PA-C - Last Filed: 04/28/23 11:40> Procedures Date of Service Date of Service: 04/28/23 <Rolanda Steel PA-C - Last Filed: 04/28/23 11:40> 04/30/23 <Matteo Schneider MD - Last Filed: 04/30/23 08:15> Progress Note: A&P Assessment and plan (1) Amputation of toe of right foot: Status: Acute <Rolanda Steel PA-C - Last Filed: 04/28/23 11:40> (2) Hyperglycemia due to type 2 diabetes mellitus: Status: Acute <Rolanda Steel PA-C - Last Filed: 04/28/23 11:40> Assessment and Plan: 2 year old male with DM admitted with wet gangrene right foot requiring 2nd toe amp initially, and extensive soft tissue debridement of gangrenous tissue in OR 04/23/23. Wound looks overall ok and no urgent intervention needed but discussed with him again this will be a very long healing process if the foot even heals. This will be very difficulty with metatarsal exposed and 3rd and 4th toe will also likely need to be amputated as well. Discussed proceeding with BKA vs transmet and leaving open, which may not heal as well and may ultimately require BKA anyways. Continue daily dressing changes with wet to dry fluffs, kerlix and ana [facility]ilia wrap[facility]o of L foot. Dr. Araya present today for second opinion. <Rolanda Steel PA-C - Last Filed: 04/28/23 11:40> Time Spent With Patient Time: Total time managing care of this patient today ____ minutes. <Rolanda Steel PA-C - Last Filed: 04/28/23 11:40> Quality Stroke Does the patient have a stroke diagnosis?: No <Rolanda Steel PA-C - Last Filed: 04/28/23 11:40> VTE Prior VTE?: No <Rolanda Steel PA-C - Last Filed: 04/28/23 11:40> VTE Risk Level:: Medical - moderate - high <Rolanda Steel PA-C - Last Filed: 04/28/23 11:40> VTE Device Contraindication: Treatment Not Indicated <Rolanda Steel PA-C - Last Filed: 04/28/23 11:40> VTE Drug Contraindication: N/A - Med Ordered <Rolanda Steel PA-C - Last Filed: 04/28/23 11:40>
--- NOTE | 2023-04-28 12:30 | PC.NURSE ---
pt reports that at 10am he had crackers and a sandwich , despite being told by multiple staff members he was NPO for placement of a Dietrich Cath . Department notified as well as DR Ro, pt will be NPO after midnight for procedure tomorrow
--- NOTE | 2023-04-28 13:04 | P.PNVS_ITS ---
Subjective Subjective Date of Service: 04/28/23 Patient reports: no new complaints and feels better Interval history: Patient seen and examined. Follow-up requested as 2nd opinion. Appears to be doing relatively better. Much more awake and alert. In general better spirits. Now presents for follow-up. Events reviewed in addition to the toe amp he required further debridement. His white count continues to trend down nicely. Now for follow-up. Physical Exam Vital Signs: Vital Signs: Last Vital Signs Temp 97.7 F 04/28/23 07:29 Pulse 99 04/28/23 07:29 Resp 18 04/28/23 07:29 BP 128/73 04/28/23 07:29 Pulse Ox 100 04/28/23 07:29 O2 Del Method Room Air 04/28/23 07:29 BMI result Body Mass Index 30.1 Const: General: cooperative, healthy appearing and no acute distress Orientation/consciousness: oriented to person, oriented to place and oriented to time HEENT: Head: Yes normal to inspection Neck: Carotids: no bruits Chest: Chest palpation & inspection: normal inspection of the chest Resp: Effort & Inspection: normal respiratory effort and able to speak in c omplete sentences Auscultation: clear to auscultation bilaterally Cardio: Rate: regular rate Heart sounds: S1 normal heart sound present and S2 normal heart sound present GI: Inspection: Yes normal to inspection Skin: Other: General skin exam: no rashes or lesions noted Wounds: no wounds Neuro: General: oriented to person, oriented to place, oriented to time and CN's II-XI intact bilaterally Extrem: General: Yes normal to inspection, Yes full ROM and Yes no clubbing, cyanosis or edema Psych: Appearance: grossly normal and well kempt Speech and movement: Normal speech and movement present Affect: normal affect Progress Note: A&P Assessment and plan (1) Diabetic ulcer of right foot: Status: Acute Assessment and Plan: In short patient has nonhealing amp of the right lower extremity. In addition the 3rd and 4th digits are dusky. There is clearly exposed bone. I do not believe IV antibiotics or hyperbaric oxygen will heal this. At the bare minimum a transmetatarsal amputation will be required. Unfortunately due to the extent of infection that required opening of the plantar aspect there will not be sufficient skin or tissue to create a flap. Patient is high at high risk of BKA. This was discussed with the patient and the family. They were understandably concerned about the entire situation. Agree with conservative management for now. Will see if the plantar aspect should demonstrate any healing. If not would proceed with BKA. I did discuss the functionality and with his overall status and is young age he should do extremely well with a prosthetic. Should additional assistance be required will be available. Thank you for allowing me to assist in his care. If there are any questions or concerns please do not hesitate to contact us. Time Spent With Patient Time: Total time managing care of this patient today ____ minutes. Procedures Date of Service Date of Service: 04/28/23 Quality Stroke Does the patient have a stroke diagnosis?: No VTE Prior VTE?: No VTE Risk Level:: Medical - moderate - high VTE Device Contraindication: Treatment Not Indicated VTE Drug Contraindication: N/A - Med Ordered
[2023-04-28 15:08] VITALS: BP 125/62; PULSE 91; RESP 18; TEMP 36.7; O2SAT 99
[2023-04-28 16:32] LABS: Glucose, Whole Blood 250 mg/dL (60-115)
[2023-04-28] MEDS: 0.9 % Sodium Chloride Flush 3 ML SYRINGE IVFLUSH ×2 (17:05→20:48)
[2023-04-28] MEDS: Insulin Lispro 100 UNIT/ML 3 ML VIAL SUBCUT (17:05)
[2023-04-28 20:27] LABS: Glucose, Whole Blood 125 mg/dL (60-115)
[2023-04-28] MEDS: Melatonin 3 MG TABLET 6 MG PO (20:47)
[2023-04-28] MEDS: Atorvastatin Calcium 40 MG TABLET PO (20:48)
[2023-04-29] VITALS (9 sets, daily range): BP systolic 108–154; BP diastolic 57–85; PULSE 80–98; RESP 16–20; TEMP 36.1–36.7; O2SAT 98–100
[2023-04-29] MEDS: oxyCODONE HCl Immed Release 5 MG TABLET 10 MG PO ×3 (03:32→19:12)
[2023-04-29] MEDS: Acetaminophen 325 MG TABLET 650 MG PO (03:32)
[2023-04-29] MEDS: Heparin Sodium,Porcine 5,000 UNIT/ML VIAL 5000 UNIT SUBCUT ×3 (05:23→20:58)
[2023-04-29] MEDS: Omeprazole 20 MG CAPSULE.DR PO (05:23)
[2023-04-29 06:47] LABS: Hematocrit 27.9 % (42.0-52.0); Hemoglobin 8.6 g/dl (14.0-18.0); Mean Corpuscular HGB Conc 30.8 g/dl (31.0-36.0); Mean Corpuscular Hemoglobin 27.3 pg (27.0-33.0); Mean Corpuscular Volume 88.6 fL (80.0-98.0); Mean Platelet Volume 11.1 fL (9.4-12.4); Platelet Count 144 X10*3/uL (160-400); Red Blood Count 3.15 X10*6/uL (4.60-5.80); White Blood Count 15.4 X10*3/uL (4.8-10.8)
[2023-04-29 07:10] LABS: Anion Gap 12 (12-20); Blood Urea Nitrogen 24 mg/dL (9-16); Carbon Dioxide 29 mmol/L (22-29); Chloride 100 mmol/L (96-108); Creatinine Clr Calc Pharmacy 48.7; Estimated Glomerular Filt Rate 32; Glucose Random 100 mg/dL (60-115); Potassium 5.5 mmol/L (3.3-5.1); Sodium 135 mmol/L (135-145)
[2023-04-29 07:15] LABS: Calcium 8.8 mg/dL (8.4-10.2)
[2023-04-29 07:24] LABS: Glucose, Whole Blood 117 mg/dL (60-115)
[2023-04-29] MEDS: 0.9 % Sodium Chloride Flush 3 ML SYRINGE IVFLUSH ×3 (07:43→21:00)
--- NOTE | 2023-04-29 08:02 | PC.NURSE ---
pt instructed on NPO status for Dietrich placement this morning . Report called to SS
--- NOTE | 2023-04-29 09:46 | PM.PNNEP ---
Subjective Subjective Date of Service: 04/30/23 Interval history: Events noted Physical Exam Vital Signs: Vital Signs: Last Vital Signs Temp 97.0 F 04/29/23 07:13 Pulse 98 04/29/23 07:13 Resp 20 04/29/23 07:13 BP 135/82 04/29/23 07:13 Pulse Ox 98 04/29/23 07:13 O2 Del Method Room Air 04/29/23 07:13 BMI result Body Mass Index 30.1 Const: Other: Constitutional : Awake, interactive, not in distress Neck : Normal inspection, Supple Cardiovascular : RRR, no JVP, no lower extremity edema Respiratory : good bilateral air entry, no crackles, wheezes or rhonchi Gastrointestinal: soft, lax, Normal bowel sounds, Non tender Skin : Warm, Dry, LLE covered with dressing, no significant erythema, RLE 2nd toe amputation, less warmth and erythema, no drainage. Neurological : Alert & oriented x3, No focal deficit Objective Data Labs 04/29/23 05:25 04/29/23 05:25 Labs: Laboratory Results - last 24 hr 04/28/23 04/28/23 04/28/23 11:13 16:15 20:24 WBC RBC Hgb Hct MCV MCH MCHC RDW Plt Count MPV Absolute Nucleated RBC Nucleated RBC % (auto) Sodium Potassium Chloride Carbon Dioxide Anion Gap BUN Creatinine Estim Creat Clear Calc Estimated GFR POC Glucose 140 H 250 H 125 H Random Glucose Calcium 04/29/23 04/29/23 04/29/23 05:25 05:25 07:11 WBC 15.4 H RBC 3.15 L Hgb 8.6 L Hct 27.9 L MCV 88.6 MCH 27.3 MCHC 30.8 L RDW 13.0 Plt Count 144 L MPV 11.1 Absolute Nucleated RBC 0.000 Nucleated RBC % (auto) 0.0 Sodium 135 Potassium 5.5 H Chloride 100 Carbon Dioxide 29 Anion Gap 12 BUN 24 H Creatinine 2.24 H Estim Creat Clear Calc 48.7 Estimated GFR 32 POC Glucose 117 H Random Glucose 100 Calcium 8.8 D Microbiology Microbiology Results: Microbiology 04/18/23 18:24 Blood - Venous Blood Culture - Final No growth after 5 days. 04/18/23 18:24 Blood - Venous Blood Culture - Final No growth after 5 days. 04/19/23 14:46 Toe Gram Stain - Final 04/19/23 14:46 Toe Routine Culture - Final Strep agalactiae (Grp B) Procedures Date of Service Date of Service: 04/30/23 Assessment & Plan Assessment and plan (1) CKD (chronic kidney disease) stage 3, GFR 30-59 ml/min: Status: Acute Plan 42-YEAR-OLD DIABETIC, HYPERTENSIVE PATIENT WITH DIABETIC FOOT INFECTION WITH OSTEOMYELITIS THAT IS GOING TO REQUIRE 6 WEEKS OF IV ANTIBIOTICS. 1. Advanced stage IIIB chronic kidney disease.? As mentioned, baseline creatinine is 1.7 to 2.5 range.? Mild bump in creatinine today nephrotic range proteinuria consistent with underlying diabetic hypertensive renal disease 2. 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 Osteomyelitis and need for 6 weeks of antibiotics.? recommend a Dietrich, not a PICC line given that there is a high likelihood of him ending up on renal placement therapy in the next 12 to 24 months. 4. 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 check an intact PTH, vitamin D, and phosphorus level. 5. Interventions to delay progression of kidney disease.? Our approach in this is use of CLINT inhibitor or an ARB.? Is currently on lisinopril, which we would continue for delayed renal progression.? Would not use Farxiga at this time given the ongoing infection.? Stressed the importance of no NSAIDs and strict blood pressure and blood sugar control. 6.. Mild hyperkalemia. Keep on low-potassium diet. Has received Lokelma this morning.. ?7. Mild hyponatremia due to decreased free water clearance in the setting of CKD. Restrict oral free water intake. Time Spent With Patient Time: Total time managing care of this patient today ____ minutes. Progress Note: Quality Stroke Does the patient have a stroke diagnosis?: No
[2023-04-29 10:11] LABS: Glucose, Whole Blood 136 mg/dL (60-115)
--- NOTE | 2023-04-29 10:48 | PM.PNGS ---
Subjective Subjective Date of Service: 04/29/23 Interval history: Denies significant pain. Awaiting hickmann cath today. Physical Exam Vital Signs: Vital Signs: Last Vital Signs Temp 98.1 F 04/29/23 10:10 Pulse 80 04/29/23 10:10 Resp 18 04/29/23 10:10 BP 131/71 04/29/23 10:10 Pulse Ox 99 04/29/23 10:10 O2 Del Method Room Air 04/29/23 10:10 BMI result Body Mass Index 30.1 Const: General: comfortable, no acute distress and alert Resp: Effort & Inspection: normal respiratory effort Skin: General skin exam: no rashes or lesions noted Extrem: Other: right foot- site is clean, no gangrenous tissue or purulence Objective Data Active Medications Acetaminophen (Acetaminophen 325 Mg Tablet) 650 mg PO Q6H PRN PRN Reason: Pain, Severe (Pain Scale 7-10) Last Admin: 04/29/23 03:32 Dose: 650 mg Documented By: DEANNA Atorvastatin Calcium (Atorvastatin Calcium 40 Mg Tablet) 40 mg PO BEDTIME [facility] Last Admin: 04/28/23 20:48 Dose: 40 mg Documented By: DEANNA Cyclobenzaprine HCl (Cyclobenzaprine Hcl 5 Mg Tablet) 5 mg PO TID PRN PRN Reason: back spasm Last Admin: 04/28/23 04:51 Dose: 5 mg Documented By: DEANNA Dextrose (Dextrose 50 % 25 Gm/50 Ml Syringe) 25 gm IVPUSH Q15M PRN; Protocol PRN Reason: per Hypoglycemia Standing Ord. Docusate Sodium (Docusate Sodium 100 Mg Capsule) 100 mg PO DAILY PRN PRN Reason: Constipation Glucose (Glucose Gel 15 Gm Gel..Gram.) 15 gm PO Q15M PRN; Protocol PRN Reason: per Hypoglycemia Standing Ord. Heparin Sodium (Porcine) (Heparin Sodium,Porcine 5,000 Unit/Ml Vial) 5,000 unit SUBCUT Q8H [facility] Last Admin: 04/29/23 05:23 Dose: 5,000 unit Documented By: DEANNA Hydromorphone HCl (Hydromorphone Hcl 0.5 Mg/0.5 Ml Syringe) 1 mg IVPUSH Q4H PRN; Protocol PRN Reason: Pain, Severe (Pain Scale 7-10) Last Admin: 04/28/23 14:53 Dose: 1 mg Documented By: HARI Meropenem 1 gm/ Sodium (Chloride) 100 mls @ 200 mls/hr IV Q8H [facility] Last Infusion: 04/29/23 00:28 Dose: 0 mls/hr Documented By: DEANNA Insulin Human Lispro (Insulin Lispro 100 Unit/Ml 3 Ml Vial) 0 unit SUBCUT QIDACHS [facility]; Protocol Last Admin: 04/29/23 07:36 Dose: Not Given Documented By: HARI Non-Admin Reason: No Insulin Coverage Lidocaine (Lidocaine 4 % Patch Adh..Patch) 1 patch TRANSDERMA DAILY [facility]; Protocol Last Admin: 04/28/23 13:47 Dose: Not Given Documented By: HARI Non-Admin Reason: Patient Refused Lisinopril (Lisinopril 20 Mg Tablet) 20 mg PO DAILY [facility]; Protocol Last Admin: 04/19/23 08:08 Dose: 20 mg Documented By: KAYLA Melatonin (Melatonin 3 Mg Tablet) 6 mg PO BEDTIME PRN PRN Reason: insomnia Last Admin: 04/28/23 20:47 Dose: 6 mg Documented By: DEANNA Multivitamins/Vitamin C (Multivitamin Tablet) 1 tab PO DAILY [facility] Last Admin: 04/28/23 13:47 Dose: Not Given Documented By: HARI Non-Admin Reason: NPO Omeprazole (Omeprazole 20 Mg Capsule.Dr) 20 mg PO DAILY@0630 [facility] Last Admin: 04/29/23 05:23 Dose: 20 mg Documented By: DEANNA Ondansetron HCl (Ondansetron Hcl 4 Mg/2 Ml Vial) 4 mg IVPUSH Q8H PRN PRN Reason: Nausea and Vomiting Last Admin: 04/21/23 12:20 Dose: 4 mg Documented By: DEEPTI Oxycodone HCl (Oxycodone Hcl Immed Release 5 Mg Tablet) 10 mg PO Q4H PRN PRN Reason: Pain, Severe (Pain Scale 7-10) Last Admin: 04/29/23 03:32 Dose: 10 mg Documented By: DEANNA Pharmacy Consult (Consult Rx Perform Med Rec) 1 each MISCELLANE ONCE PRN PRN Reason: Consult order Polyethylene Glycol (Polyethylene Glycol 3350 17 Gm Powd.Pack) 17 gm PO DAILY PRN PRN Reason: constipation Sodium Chloride (0.9 % Sodium Chloride Flush 3 Ml Syringe) 3 ml IVFLUSH QSHIFT [facility] Last Admin: 04/29/23 07:43 Dose: 3 ml Documented By: HARI Sodium Hypochlorite (Sodium Hypochlorite 0.25% 473 Ml Solution) 1 appl TOPICAL DAILY [facility] Last Admin: 04/28/23 10:23 Dose: 1 appl Documented By: HARI Labs 04/29/23 05:25 04/29/23 05:25 Labs: Laboratory Results - last 24 hr 04/28/23 04/28/23 04/28/23 11:13 16:15 20:24 MCV MCH MCHC RDW Plt Count MPV Absolute Nucleated RBC Nucleated RBC % (auto) Anion Gap Estim Creat Clear Calc Estimated GFR POC Glucose 140 H 250 H 125 H Random Glucose Calcium 04/29/23 04/29/23 04/29/23 05:25 05:25 07:11 MCV 88.6 MCH 27.3 MCHC 30.8 L RDW 13.0 Plt Count 144 L MPV 11.1 Absolute Nucleated RBC 0.000 Nucleated RBC % (auto) 0.0 Anion Gap 12 Estim Creat Clear Calc 48.7 Estimated GFR 32 POC Glucose 117 H Random Glucose 100 Calcium 8.8 D 04/29/23 10:05 MCV MCH MCHC RDW Plt Count MPV Absolute Nucleated RBC Nucleated RBC % (auto) Anion Gap Estim Creat Clear Calc Estimated GFR POC Glucose 136 H Random Glucose Calcium Procedures Date of Service Date of Service: 04/29/23 Progress Note: A&P Assessment and plan (1) Amputation of toe of right foot: Status: Acute (2) Diabetic ulcer of right foot: Status: Acute Plan 42 year old male with DM admitted with wet gangrene right foot requiring 2nd toe amp initially, and extensive soft tissue debridement of gangrenous tissue in OR 04/23/23. Wound looks overall ok- area remains clean without gangrenous tissue or purulent drainage. May need further amputation down the line but at this point recommend continuing current plan with daily local wound care. Hickmann cath today for IV abx for osteo of L foot. Can begin dispo planning. Time Spent With Patient Time: Total time managing care of this patient today ____ minutes. Quality Stroke Does the patient have a stroke diagnosis?: No VTE Prior VTE?: No VTE Risk Level:: Medical - moderate - high VTE Device Contraindication: Treatment Not Indicated VTE Drug Contraindication: N/A - Med Ordered
[2023-04-29] MEDS: Lidocaine HCl 1 % 20 ML VIAL 10 ML SUBCUT (11:57)
[2023-04-29] MEDS: Lidocaine HCl 1% PF/Epi 1:200,000 30 ML VIAL 10 ML SUBCUT (11:59)
--- NOTE | 2023-04-29 13:06 | P.PNIM_ITS ---
Subjective Subjective Date of Service: 04/29/23 Interval History: foot infection Review of Systems Seems more comfortable, sitting with his mother Denies any pain in the foot, wound cause with dressing, pain controlled No fever. Physical Exam Vital Signs: Vital Signs: Last Vital Signs Temp 98.1 F 04/29/23 10:10 Pulse 86 04/29/23 12:40 Resp 16 04/29/23 12:40 BP 108/57 L 04/29/23 12:40 Pulse Ox 98 04/29/23 12:40 O2 Del Method Room Air 04/29/23 12:40 BMI result Body Mass Index 30.1 Constitutional : Awake, interactive, not in distress Cardiovascular : RRR, no JVP, no lower extremity edema Respiratory :fair air entry,? no crackles, wheezes or rhonchi Gastrointestinal:? soft, lax, Normal bowel sounds, Non tender Skin : Warm, Dry, LLE covered with dressing, no significant erythema, RLE 2nd toe amputation, less warmth and erythema, no drainage. Neurological : Alert & oriented x3, No focal deficit Objective Data Active Medications Acetaminophen (Acetaminophen 325 Mg Tablet) 650 mg PO Q6H PRN PRN Reason: Pain, Severe (Pain Scale 7-10) Last Admin: 04/29/23 03:32 Dose: 650 mg Documented By: DEANNA Atorvastatin Calcium (Atorvastatin Calcium 40 Mg Tablet) 40 mg PO BEDTIME [facility] Last Admin: 04/28/23 20:48 Dose: 40 mg Documented By: DEANNA Cyclobenzaprine HCl (Cyclobenzaprine Hcl 5 Mg Tablet) 5 mg PO TID PRN PRN Reason: back spasm Last Admin: 04/28/23 04:51 Dose: 5 mg Documented By: DEANNA Dextrose (Dextrose 50 % 25 Gm/50 Ml Syringe) 25 gm IVPUSH Q15M PRN; Protocol PRN Reason: per Hypoglycemia Standing Ord. Docusate Sodium (Docusate Sodium 100 Mg Capsule) 100 mg PO DAILY PRN PRN Reason: Constipation Glucose (Glucose Gel 15 Gm Gel..Gram.) 15 gm PO Q15M PRN; Protocol PRN Reason: per Hypoglycemia Standing Ord. Heparin Sodium (Porcine) (Heparin Sodium,Porcine 5,000 Unit/Ml Vial) 5,000 unit SUBCUT Q8H [facility] Last Admin: 04/29/23 05:23 Dose: 5,000 unit Documented By: DEANNA Hydromorphone HCl (Hydromorphone Hcl 0.5 Mg/0.5 Ml Syringe) 1 mg IVPUSH Q4H PRN; Protocol PRN Reason: Pain, Severe (Pain Scale 7-10) Last Admin: 04/28/23 14:53 Dose: 1 mg Documented By: HARI Meropenem 1 gm/ Sodium (Chloride) 100 mls @ 200 mls/hr IV Q8H [facility] Last Infusion: 04/29/23 00:28 Dose: 0 mls/hr Documented By: DEANNA Insulin Human Lispro (Insulin Lispro 100 Unit/Ml 3 Ml Vial) 0 unit SUBCUT QIDACHS [facility]; Protocol Last Admin: 04/29/23 07:36 Dose: Not Given Documented By: HARI Non-Admin Reason: No Insulin Coverage Lidocaine (Lidocaine 4 % Patch Adh..Patch) 1 patch TRANSDERMA DAILY [facility]; Protocol Last Admin: 04/28/23 13:47 Dose: Not Given Documented By: HARI Non-Admin Reason: Patient Refused Lisinopril (Lisinopril 20 Mg Tablet) 20 mg PO DAILY [facility]; Protocol Last Admin: 04/19/23 08:08 Dose: 20 mg Documented By: KAYLA Melatonin (Melatonin 3 Mg Tablet) 6 mg PO BEDTIME PRN PRN Reason: insomnia Last Admin: 04/28/23 20:47 Dose: 6 mg Documented By: DEANNA Multivitamins/Vitamin C (Multivitamin Tablet) 1 tab PO DAILY [facility] Last Admin: 04/28/23 13:47 Dose: Not Given Documented By: HARI Non-Admin Reason: NPO Omeprazole (Omeprazole 20 Mg Capsule.Dr) 20 mg PO DAILY@0630 [facility] Last Admin: 04/29/23 05:23 Dose: 20 mg Documented By: DEANNA Ondansetron HCl (Ondansetron Hcl 4 Mg/2 Ml Vial) 4 mg IVPUSH Q8H PRN PRN Reason: Nausea and Vomiting Last Admin: 04/21/23 12:20 Dose: 4 mg Documented By: DEEPTI Oxycodone HCl (Oxycodone Hcl Immed Release 5 Mg Tablet) 10 mg PO Q4H PRN PRN Reason: Pain, Severe (Pain Scale 7-10) Last Admin: 04/29/23 03:32 Dose: 10 mg Documented By: DEANNA Pharmacy Consult (Consult Rx Perform Med Rec) 1 each MISCELLANE ONCE PRN PRN Reason: Consult order Polyethylene Glycol (Polyethylene Glycol 3350 17 Gm Powd.Pack) 17 gm PO DAILY PRN PRN Reason: constipation Sodium Chloride (0.9 % Sodium Chloride Flush 3 Ml Syringe) 3 ml IVFLUSH QSHIFT [facility] Last Admin: 04/29/23 07:43 Dose: 3 ml Documented By: HARI Sodium Hypochlorite (Sodium Hypochlorite 0.25% 473 Ml Solution) 1 appl TOPICAL DAILY [facility] Last Admin: 04/28/23 10:23 Dose: 1 appl Documented By: HARI Labs 04/29/23 05:25 04/29/23 05:25 Labs: Laboratory Results - last 24 hr 04/28/23 04/28/23 04/29/23 16:15 20:24 05:25 MCV 88.6 MCH 27.3 MCHC 30.8 L RDW 13.0 Plt Count 144 L MPV 11.1 Absolute Nucleated RBC 0.000 Nucleated RBC % (auto) 0.0 Anion Gap Estim Creat Clear Calc Estimated GFR POC Glucose 250 H 125 H Random Glucose Calcium 04/29/23 04/29/23 04/29/23 05:25 07:11 10:05 MCV MCH MCHC RDW Plt Count MPV Absolute Nucleated RBC Nucleated RBC % (auto) Anion Gap 12 Estim Creat Clear Calc 48.7 Estimated GFR 32 POC Glucose 117 H 136 H Random Glucose 100 Calcium 8.8 D Assessment and Plan (1) Foot osteomyelitis, left: Status: Acute (2) Amputation of toe of right foot: Status: Acute (3) Diabetic wet gangrene of the foot: Status: Acute (4) Hyperglycemia: Status: Acute (5) Hyperglycemia due to type 2 diabetes mellitus: Status: Acute Plan Pt is a 42-year-old male with a PMH significant for?HTN, HLD, non insulin- dependent diabetes type 2, and CKD stage III who presents to the ED with?right foot pain, swelling, and redness, and discoloration of his 2nd toe, now s/p right 2nd toe amputation being treated with IV antibiotics and will undergo addl surgical debridement today Sepsis secondary to gangrenous right toe/foot wound and left foot Osteomyelitis related to diabetes s/p right second toe amputation 04/19 and extensive debridement 04/23 xray concerning for osteomyelitis of left foot - first distal phalanx. Continue IV meropeneml for total of 6 weeks ( started on 04/24) concerns over non-healing wound seen by vascular eval -recomended conservative management for now ,likely will need amputation at some point. right 2nd toe acute osteomyelitis status post amputation on 04/19 with extensive soft tissue debridement on 04/23 may require further amputation, will get Vascular surgery input Friday Meanwhile continue IV antibiotics, will require 6 weeks of mer[address]em To place a central line (Adamkmann) infectious Disease following Lzx-[id number] diabetes type 2, with hyperglycemia- glucose control improving HbA1c 10.7 pt non-compliant with diabetic diet or blood sugar monitoring will require insulin on discharge contue POCs QIDACHS , SSI Diabetic diet Hyponatremia resolved MERLIN on CKD 3 close to baseline monitor I\O and BMP Nephro following Acute hypokalemia resolved normoycytic anemia likely related to chronic illness and acute inflammation normal ferritin, b12, folic acid and negative stool occult follow cbc HLD Continue statin HTN bp stable continue holding lisinopril, resume as appropriate Full Code DVT Prophylaxis:heparin inpatient need -gangrenous foot infection including acute surgical intervention as well as IV antibiotics and additional surgical debridement which cannot take place in lower level of care. Time Spent With Patient Time: Total time managing care of this patient today ____ minutes. Quality Stroke Does the patient have a stroke diagnosis?: No VTE Prior VTE?: No VTE Risk Level:: Medical - moderate - high VTE Device Contraindication: Treatment Not Indicated VTE Drug Contraindication: N/A - Med Ordered
[2023-04-29 13:34] LABS: Glucose, Whole Blood 115 mg/dL (60-115)
[2023-04-29] MEDS: Sodium Zirconium Cyclosilicate 10 GM POWD.PACK PO (13:50)
--- NOTE | 2023-04-29 13:52 | MHC.CM.PN ---
Addendum entered by Annette Escobedo 04/29/23 14:13: Called IR nurse line again. T/W requested Dietrich documentation. Sent to the Radiology Documentation Clinical Resource Nurse. She stated that the Radiologist has not documented on the procedure yet. Original Note: Met with Anisha in short stay to request infusion services. Line info is pending. A VM was left for Radiology nurses. Dietrich documentation has been requested. Plan to follow up with Anisha once line documentation available.
[2023-04-29 16:18] LABS: Glucose, Whole Blood 312 mg/dL (60-115)
[2023-04-29] MEDS: Insulin Lispro 100 UNIT/ML 3 ML VIAL SUBCUT ×2 (16:30→20:58)
[2023-04-29 16:44] LABS: Calcium (PTHI) 8.6 mg/dL (8.6-10.3); PTHI 42 pg/mL (16-77)
[2023-04-29] MEDS: Atorvastatin Calcium 40 MG TABLET PO (19:14)
[2023-04-29 20:19] LABS: Glucose, Whole Blood 180 mg/dL (60-115)
[2023-04-29] MEDS: Cyclobenzaprine HCl 5 MG TABLET PO (20:57)
[2023-04-29] MEDS: Melatonin 3 MG TABLET 6 MG PO (20:58)
[2023-04-30] MEDS: Acetaminophen 325 MG TABLET 650 MG PO ×2 (00:01→13:31)
[2023-04-30 03:39] VITALS: BP 125/60; PULSE 84; RESP 18; TEMP 36.4; O2SAT 98
[2023-04-30] MEDS: Heparin Sodium,Porcine 5,000 UNIT/ML VIAL 5000 UNIT SUBCUT ×2 (05:34→20:42)
[2023-04-30] MEDS: Omeprazole 20 MG CAPSULE.DR PO (05:34)
[2023-04-30 07:32] LABS: Glucose, Whole Blood 191 mg/dL (60-115)
[2023-04-30 07:48] VITALS: BP 125/70; PULSE 82; RESP 18; TEMP 36.3; O2SAT 96
--- NOTE | 2023-04-30 08:15 | P.PNGS_ITS ---
Subjective Subjective Date of Service: 04/30/23 Interval history: Status post Dietrich catheter placement yesterday. Right foot dressing clean dry and intact. Wound evaluated yesterday with marked improvement of infectious inflammatory process. Physical Exam Vital Signs: Vital Signs: Last Vital Signs Temp 97.3 F 04/30/23 07:48 Pulse 82 04/30/23 07:48 Resp 18 04/30/23 07:48 BP 125/70 04/30/23 07:48 Pulse Ox 96 04/30/23 07:48 O2 Del Method Room Air 04/30/23 07:48 BMI result Body Mass Index 30.1 Extrem: Other: As noted above Objective Data Active Medications Acetaminophen (Acetaminophen 325 Mg Tablet) 650 mg PO Q6H PRN PRN Reason: Pain, Severe (Pain Scale 7-10) Last Admin: 04/30/23 00:01 Dose: 650 mg Documented By: MILADIS Atorvastatin Calcium (Atorvastatin Calcium 40 Mg Tablet) 40 mg PO BEDTIME [facility] Last Admin: 04/29/23 19:14 Dose: 40 mg Documented By: MEGAN Cyclobenzaprine HCl (Cyclobenzaprine Hcl 5 Mg Tablet) 5 mg PO TID PRN PRN Reason: back spasm Last Admin: 04/29/23 20:57 Dose: 5 mg Documented By: MEGAN Dextrose (Dextrose 50 % 25 Gm/50 Ml Syringe) 25 gm IVPUSH Q15M PRN; Protocol PRN Reason: per Hypoglycemia Standing Ord. Docusate Sodium (Docusate Sodium 100 Mg Capsule) 100 mg PO DAILY PRN PRN Reason: Constipation Glucose (Glucose Gel 15 Gm Gel..Gram.) 15 gm PO Q15M PRN; Protocol PRN Reason: per Hypoglycemia Standing Ord. Heparin Sodium (Porcine) (Heparin Sodium,Porcine 5,000 Unit/Ml Vial) 5,000 unit SUBCUT Q8H [facility] Last Admin: 04/30/23 05:34 Dose: 5,000 unit Documented By: MILADIS Hydromorphone HCl (Hydromorphone Hcl 0.5 Mg/0.5 Ml Syringe) 1 mg IVPUSH Q4H PRN; Protocol PRN Reason: Pain, Severe (Pain Scale 7-10) Last Admin: 04/28/23 14:53 Dose: 1 mg Documented By: HARI Meropenem 1 gm/ Sodium (Chloride) 100 mls @ 200 mls/hr IV Q8H [facility] Last Infusion: 04/30/23 06:04 Dose: 0 mls/hr Documented By: MILADIS Insulin Human Lispro (Insulin Lispro 100 Unit/Ml 3 Ml Vial) 0 unit SUBCUT QIDACHS [facility]; Protocol Last Admin: 04/29/23 20:58 Dose: 2 unit Documented By: MEGAN Lidocaine (Lidocaine 4 % Patch Adh..Patch) 1 patch TRANSDERMA DAILY [facility]; Protocol Last Admin: 04/29/23 13:43 Dose: Not Given Documented By: HARI Non-Admin Reason: Patient Refused Lisinopril (Lisinopril 20 Mg Tablet) 20 mg PO DAILY [facility]; Protocol Last Admin: 04/19/23 08:08 Dose: 20 mg Documented By: KAYLA Melatonin (Melatonin 3 Mg Tablet) 6 mg PO BEDTIME PRN PRN Reason: insomnia Last Admin: 04/29/23 20:58 Dose: 6 mg Documented By: MEGAN Multivitamins/Vitamin C (Multivitamin Tablet) 1 tab PO DAILY [facility] Last Admin: 04/29/23 13:43 Dose: Not Given Documented By: HARI Non-Admin Reason: NPO Omeprazole (Omeprazole 20 Mg Capsule.Dr) 20 mg PO DAILY@0630 [facility] Last Admin: 04/30/23 05:34 Dose: 20 mg Documented By: MILADIS Ondansetron HCl (Ondansetron Hcl 4 Mg/2 Ml Vial) 4 mg IVPUSH Q8H PRN PRN Reason: Nausea and Vomiting Last Admin: 04/21/23 12:20 Dose: 4 mg Documented By: DEEPTI Oxycodone HCl (Oxycodone Hcl Immed Release 5 Mg Tablet) 10 mg PO Q4H PRN PRN Reason: Pain, Severe (Pain Scale 7-10) Last Admin: 04/30/23 00:00 Dose: 10 mg Documented By: MILADIS Pharmacy Consult (Consult Rx Perform Med Rec) 1 each MISCELLANE ONCE PRN PRN Reason: Consult order Polyethylene Glycol (Polyethylene Glycol 3350 17 Gm Powd.Pack) 17 gm PO DAILY PRN PRN Reason: constipation Sodium Chloride (0.9 % Sodium Chloride Flush 3 Ml Syringe) 3 ml IVFLUSH QSHIFT [facility] Last Admin: 04/29/23 21:00 Dose: 3 ml Documented By: GINAQC Sodium Hypochlorite (Sodium Hypochlorite 0.25% 473 Ml Solution) 1 appl TOPICAL DAILY [facility] Last Admin: 04/29/23 13:51 Dose: 1 appl Documented By: HARI Labs 04/29/23 05:25 04/29/23 05:25 Labs: Laboratory Results - last 24 hr 04/28/23 04/29/23 04/29/23 06:31 10:05 13:31 POC Glucose 136 H 115 PTH Intact 42 Calcium (PTH Intact) 8.6 04/29/23 04/29/23 04/30/23 16:08 20:12 07:18 POC Glucose 312 H 180 H 191 H PTH Intact Calcium (PTH Intact) Procedures Date of Service Date of Service: 04/30/23 Progress Note: A&P Assessment and plan (1) Foot osteomyelitis, left: Status: Acute (2) Amputation of toe of right foot: Status: Acute (3) Diabetic ulcer of right foot: Status: Acute (4) Diabetic wet gangrene of the foot: Status: Acute Plan Patient is not very keen on proceeding with a trans met amputation at this time. Since the infectious process has markedly improved, we can continue conservative therapy at this time. The current plan is to continue local wound care in the form of leg elevation, dressing changes with Dakin solution and IV antibiotics. Patient is encouraged to ambulate with only heal bearing on right foot. Time Spent With Patient Time: Total time managing care of this patient today ____ minutes. Quality Stroke Does the patient have a stroke diagnosis?: No VTE Prior VTE?: No VTE Risk Level:: Medical - moderate - high VTE Device Contraindication: Treatment Not Indicated VTE Drug Contraindication: N/A - Med Ordered
[2023-04-30] MEDS: Insulin Lispro 100 UNIT/ML 3 ML VIAL SUBCUT ×2 (08:36→16:26)
[2023-04-30] MEDS: Multivitamin TABLET 1 TAB PO (08:36)
[2023-04-30] MEDS: 0.9 % Sodium Chloride Flush 3 ML SYRINGE IVFLUSH ×3 (08:37→20:42)
[2023-04-30] MEDS: oxyCODONE HCl Immed Release 5 MG TABLET 10 MG PO ×4 (09:33→17:24)
[2023-04-30 09:40] LABS: C Reactive Protein 6.51 mg/dL (< or = 0.50); Potassium 5.1 mmol/L (3.3-5.1)
[2023-04-30 10:09] LABS: Erythrocyte Sedimentation Rate 99 MM/HR (0-15)
--- NOTE | 2023-04-30 10:19 | MHC.CM.PN ---
Addendum entered by Annette Escobedo 04/30/23 15:49: Additional facilities have been referred. Clinical info has been sent. Patient is interested in a SNF rather than home. CM will follow. Addendum entered by Annette Escobedo 04/30/23 15:04: Patient did well with infusion education. [facility] will provide care. DC is hold today. Original Note: Patient received A Dietrich yesterday. [facility] is scheduled to teach home infusion today.
--- NOTE | 2023-04-30 10:54 | PM.PNNEP ---
Subjective Subjective Date of Service: 05/01/23 Interval history: foot infection Physical Exam Vital Signs: Vital Signs: Last Vital Signs Temp 97.3 F 04/30/23 07:48 Pulse 82 04/30/23 07:48 Resp 18 04/30/23 07:48 BP 125/70 04/30/23 07:48 Pulse Ox 96 04/30/23 07:48 O2 Del Method Room Air 04/30/23 07:48 BMI result Body Mass Index 30.1 Const: Other: Constitutional : Awake, interactive, not in distress Neck : Normal inspection, Supple Cardiovascular : RRR, no JVP, no lower extremity edema Respiratory : good bilateral air entry, no crackles, wheezes or rhonchi Gastrointestinal: soft, lax, Normal bowel sounds, Non tender Skin : Warm, Dry, LLE covered with dressing, no significant erythema, RLE 2nd toe amputation, less warmth and erythema, no drainage. Neurological : Alert & oriented x3, No focal deficit Objective Data Labs 04/29/23 05:25 04/30/23 08:31 Labs: Laboratory Results - last 24 hr 04/28/23 04/29/23 04/29/23 06:31 13:31 16:08 ESR Potassium POC Glucose 115 312 H C-Reactive Protein PTH Intact 42 Calcium (PTH Intact) 8.6 04/29/23 04/30/23 04/30/23 20:12 07:18 08:31 ESR 99 H Potassium POC Glucose 180 H 191 H C-Reactive Protein PTH Intact Calcium (PTH Intact) 04/30/23 08:31 ESR Potassium 5.1 POC Glucose C-Reactive Protein 6.51 H PTH Intact Calcium (PTH Intact) Microbiology Microbiology Results: Microbiology 04/18/23 18:24 Blood - Venous Blood Culture - Final No growth after 5 days. 04/18/23 18:24 Blood - Venous Blood Culture - Final No growth after 5 days. 04/19/23 14:46 Toe Gram Stain - Final 04/19/23 14:46 Toe Routine Culture - Final Strep agalactiae (Grp B) Procedures Date of Service Date of Service: 05/01/23 Assessment & Plan Assessment and plan (1) CKD (chronic kidney disease) stage 3, GFR 30-59 ml/min: Status: Acute Plan 42-YEAR-OLD DIABETIC, HYPERTENSIVE PATIENT WITH DIABETIC FOOT INFECTION WITH OSTEOMYELITIS THAT IS GOING TO REQUIRE 6 WEEKS OF IV ANTIBIOTICS. 1. Advanced stage IIIB chronic kidney disease.? As mentioned, baseline creatinine is 1.7 to 2.5 range.? Mild bump in creatinine today nephrotic range proteinuria consistent with underlying diabetic hypertensive renal disease 2. 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 Osteomyelitis and need for 6 weeks of antibiotics.? recommend a Dietrich, not a PICC line given that there is a high likelihood of him ending up on renal placement therapy in the next 12 to 24 months. 4. 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 check an intact PTH, vitamin D, and phosphorus level. 5. Interventions to delay progression of kidney disease.? Our approach in this is use of CLINT inhibitor or an ARB.? Is currently on lisinopril, which we would continue for delayed renal progression.? Would not use Farxiga at this time given the ongoing infection.? Stressed the importance of no NSAIDs and strict blood pressure and blood sugar control. 6.. Mild hyperkalemia. Keep on low-potassium diet. ?7. Mild hyponatremia due to decreased free water clearance in the setting of CKD. Restrict oral free water intake. Time Spent With Patient Time: Total time managing care of this patient today ____ minutes. Progress Note: Quality Stroke Does the patient have a stroke diagnosis?: No
[2023-04-30 11:14] LABS: Glucose, Whole Blood 129 mg/dL (60-115)
[2023-04-30] MEDS: Ertapenem Sodium 1 GM in 0.9 % Sodium Chloride 50 ML IV (14:04)
--- NOTE | 2023-04-30 14:29 | HO.PM.IMPN ---
Subjective Subjective Date of Service: 04/30/23 Interval History: foot infection Review of Systems Denies any pain in the foot, wound cause with dressing, pain controlled No fever. Physical Exam Vital Signs: Vital Signs: Last Vital Signs Temp 97.3 F 04/30/23 07:48 Pulse 82 04/30/23 07:48 Resp 18 04/30/23 07:48 BP 125/70 04/30/23 07:48 Pulse Ox 96 04/30/23 07:48 O2 Del Method Room Air 04/30/23 07:48 BMI result Body Mass Index 30.1 Constitutional : Awake, interactive, not in distress Cardiovascular : RRR, no JVP, no lower extremity edema Respiratory :fair air entry,? no crackles, wheezes or rhonchi Gastrointestinal:? soft, lax, Normal bowel sounds, Non tender Skin : Warm, Dry, LLE covered with dressing, no significant erythema, RLE 2nd toe amputation, less warmth and erythema, no drainage. Neurological : Alert & oriented x3, No focal deficit Objective Data Active Medications Acetaminophen (Acetaminophen 325 Mg Tablet) 650 mg PO Q6H PRN PRN Reason: Pain, Severe (Pain Scale 7-10) Last Admin: 04/30/23 13:31 Dose: 650 mg Documented By: KAI Atorvastatin Calcium (Atorvastatin Calcium 40 Mg Tablet) 40 mg PO BEDTIME [facility] Last Admin: 04/29/23 19:14 Dose: 40 mg Documented By: MEGAN Cyclobenzaprine HCl (Cyclobenzaprine Hcl 5 Mg Tablet) 5 mg PO TID PRN PRN Reason: back spasm Last Admin: 04/29/23 20:57 Dose: 5 mg Documented By: MEGAN Dextrose (Dextrose 50 % 25 Gm/50 Ml Syringe) 25 gm IVPUSH Q15M PRN; Protocol PRN Reason: per Hypoglycemia Standing Ord. Docusate Sodium (Docusate Sodium 100 Mg Capsule) 100 mg PO DAILY PRN PRN Reason: Constipation Glucose (Glucose Gel 15 Gm Gel..Gram.) 15 gm PO Q15M PRN; Protocol PRN Reason: per Hypoglycemia Standing Ord. Heparin Sodium (Porcine) (Heparin Sodium,Porcine 5,000 Unit/Ml Vial) 5,000 unit SUBCUT Q8H [facility] Last Admin: 04/30/23 14:05 Dose: Not Given Documented By: KAI Non-Admin Reason: discharged Hydromorphone HCl (Hydromorphone Hcl 0.5 Mg/0.5 Ml Syringe) 1 mg IVPUSH Q4H PRN; Protocol PRN Reason: Pain, Severe (Pain Scale 7-10) Last Admin: 04/28/23 14:53 Dose: 1 mg Documented By: HARI Insulin Human Lispro (Insulin Lispro 100 Unit/Ml 3 Ml Vial) 0 unit SUBCUT QIDACHS [facility]; Protocol Last Admin: 04/30/23 11:30 Dose: Not Given Documented By: KAI Non-Admin Reason: IV Running Lidocaine (Lidocaine 4 % Patch Adh..Patch) 1 patch TRANSDERMA DAILY [facility]; Protocol Last Admin: 04/30/23 08:27 Dose: Not Given Documented By: GAUDENCIO Non-Admin Reason: Patient Refused Lisinopril (Lisinopril 20 Mg Tablet) 20 mg PO DAILY [facility]; Protocol Last Admin: 04/19/23 08:08 Dose: 20 mg Documented By: KAYLA Melatonin (Melatonin 3 Mg Tablet) 6 mg PO BEDTIME PRN PRN Reason: insomnia Last Admin: 04/29/23 20:58 Dose: 6 mg Documented By: MEGAN Multivitamins/Vitamin C (Multivitamin Tablet) 1 tab PO DAILY [facility] Last Admin: 04/30/23 08:36 Dose: 1 tab Documented By: GAUDENCIO Omeprazole (Omeprazole 20 Mg Capsule.Dr) 20 mg PO DAILY@0630 [facility] Last Admin: 04/30/23 05:34 Dose: 20 mg Documented By: MILADIS Ondansetron HCl (Ondansetron Hcl 4 Mg/2 Ml Vial) 4 mg IVPUSH Q8H PRN PRN Reason: Nausea and Vomiting Last Admin: 04/21/23 12:20 Dose: 4 mg Documented By: DEEPTI Oxycodone HCl (Oxycodone Hcl Immed Release 5 Mg Tablet) 10 mg PO Q4H PRN PRN Reason: Pain, Severe (Pain Scale 7-10) Last Admin: 04/30/23 13:31 Dose: 10 mg Documented By: KAI Pharmacy Consult (Consult Rx Perform Med Rec) 1 each MISCELLANE ONCE PRN PRN Reason: Consult order Polyethylene Glycol (Polyethylene Glycol 3350 17 Gm Powd.Pack) 17 gm PO DAILY PRN PRN Reason: constipation Sodium Chloride (0.9 % Sodium Chloride Flush 3 Ml Syringe) 3 ml IVFLUSH QSHIFT [facility] Last Admin: 04/30/23 08:37 Dose: 3 ml Documented By: GAUDENCIO Sodium Hypochlorite (Sodium Hypochlorite 0.25% 473 Ml Solution) 1 appl TOPICAL DAILY [facility] Last Admin: 04/30/23 09:34 Dose: 1 appl Documented By: GAUDENCIO Labs 04/29/23 05:25 04/30/23 08:31 Labs: Laboratory Results - last 24 hr 04/28/23 04/29/23 04/29/23 06:31 16:08 20:12 ESR POC Glucose 312 H 180 H C-Reactive Protein PTH Intact 42 Calcium (PTH Intact) 8.6 04/30/23 04/30/23 04/30/23 07:18 08:31 08:31 ESR 99 H POC Glucose 191 H C-Reactive Protein 6.51 H PTH Intact Calcium (PTH Intact) 04/30/23 11:10 ESR POC Glucose 129 H C-Reactive Protein PTH Intact Calcium (PTH Intact) Assessment and Plan (1) Foot osteomyelitis, left: Status: Acute (2) Amputation of toe of right foot: Status: Acute (3) Diabetic wet gangrene of the foot: Status: Acute (4) Hyperglycemia: Status: Acute (5) Hyperglycemia due to type 2 diabetes mellitus: Status: Acute Plan Pt is a 42-year-old male with a PMH significant for?HTN, HLD, non insulin-dependent diabetes type 2, and CKD stage III who presents to the ED with?right foot pain, swelling, and redness, and discoloration of his 2nd toe, now s/p right 2nd toe amputation being treated with IV antibiotics and will undergo addl surgical debridement today Sepsis secondary to gangrenous right toe/foot wound and left foot Osteomyelitis related to diabetes s/p right second toe amputation 04/19 and extensive debridement 04/23 xray concerning for osteomyelitis of left foot - first distal phalanx. Continue IV meropeneml for total of 6 weeks ( started on 04/24) concerns over non-healing wound seen by vascular eval -recomended conservative management for now ,likely will need amputation at some point. right 2nd toe acute osteomyelitis status post amputation on 04/19 with extensive soft tissue debridement on 04/23 may require further amputation, will get Vascular surgery input Friday Meanwhile continue IV antibiotics, will require 6 weeks of meropenem To place a central line (Adamkmann) infectious Disease following Udl-nksjtef-zkwlevicr diabetes type 2, with hyperglycemia- glucose control improving HbA1c 10.7 pt non-compliant with diabetic diet or blood sugar monitoring will require insulin on discharge contue POCs QIDACHS , SSI Diabetic diet Hyponatremia resolved EMRLIN on CKD 3 close to baseline monitor I\O and BMP Nephro following Acute hypokalemia resolved normoycytic anemia likely related to chronic illness and acute inflammation normal ferritin, b12, folic acid and negative stool occult follow cbc HLD Continue statin HTN bp stable continue holding lisinopril, resume as appropriate Full Code DVT Prophylaxis:heparin inpatient need -gangrenous foot infection including acute surgical intervention as well as IV antibiotics and additional surgical debridement which cannot take place in lower level of care.need rehab placement Time Spent With Patient Time: Total time managing care of this patient today ____ minutes. Quality Stroke Does the patient have a stroke diagnosis?: No VTE Prior VTE?: No VTE Risk Level:: Medical - moderate - high VTE Device Contraindication: Treatment Not Indicated VTE Drug Contraindication: N/A - Med Ordered
[2023-04-30 15:50] VITALS: BP 106/60; PULSE 98; RESP 18; TEMP 36.2; O2SAT 97
[2023-04-30 16:35] LABS: Glucose, Whole Blood 159 mg/dL (60-115)
[2023-04-30] MEDS: Cyclobenzaprine HCl 5 MG TABLET PO (17:24)
[2023-04-30 19:39] VITALS: BP 123/57; PULSE 86; RESP 20; TEMP 36.3; O2SAT 100
[2023-04-30 20:38] LABS: Glucose, Whole Blood 146 mg/dL (60-115)
[2023-04-30] MEDS: Atorvastatin Calcium 40 MG TABLET PO (20:42)
[2023-05-01] MEDS: oxyCODONE HCl Immed Release 5 MG TABLET 10 MG PO ×3 (00:22→10:15)
[2023-05-01 03:24] VITALS: BP 129/85; PULSE 100; RESP 18; TEMP 36.4; O2SAT 99
[2023-05-01] MEDS: Heparin Sodium,Porcine 5,000 UNIT/ML VIAL 5000 UNIT SUBCUT (05:56)
[2023-05-01] MEDS: Omeprazole 20 MG CAPSULE.DR PO (05:56)
[2023-05-01 07:21] VITALS: BP 118/70; PULSE 105; RESP 16; TEMP 36.6; O2SAT 99
[2023-05-01 07:44] LABS: Glucose, Whole Blood 202 mg/dL (60-115)
[2023-05-01] MEDS: Insulin Lispro 100 UNIT/ML 3 ML VIAL SUBCUT (08:55)
[2023-05-01] MEDS: Multivitamin TABLET 1 TAB PO (08:56)
--- NOTE | 2023-05-01 09:42 | MHC.CM.PN ---
Addendum entered by Skye Patel 05/01/23 13:02: PT WILL DC HOME TODAY WITH [facility] AND [facility]. BOTH AGENCIES INFORMED OF DC VIA [employer] PT WILL SELF ARRANGE TRANSPORT Original Note: CM MET WITH PT AND HIS MOTHER, PT INFORMED THERE ARE NO LOCAL SNFS OFFERING A BED, SO THE REFERRAL HAS BEEN EXPANEDED PT INITIALLY AGREED, HOWEVER LATER REPORTED HE WOULD PREFER TO GO HOME THE PTS MOTHER SAYS THE MD ALREADY TOLD THEM THEY COULD MESSAGE SENT TO
--- NOTE | 2023-05-01 09:58 | PM.PNNEP ---
Subjective Subjective Date of Service: 05/01/23 Interval history: foot infection Physical Exam Vital Signs: Vital Signs: Last Vital Signs Temp 97.9 F 05/01/23 07:21 Pulse 105 H 05/01/23 07:21 Resp 16 05/01/23 07:21 BP 118/70 05/01/23 07:21 Pulse Ox 99 05/01/23 07:21 O2 Del Method Room Air 05/01/23 07:21 BMI result Body Mass Index 30.1 Const: Other: Constitutional : Awake, interactive, not in distress Neck : Normal inspection, Supple Cardiovascular : RRR, no JVP, no lower extremity edema Respiratory : good bilateral air entry, no crackles, wheezes or rhonchi Gastrointestinal: soft, lax, Normal bowel sounds, Non tender Skin : Warm, Dry, LLE covered with dressing, no significant erythema, RLE 2nd toe amputation, less warmth and erythema, no drainage. Neurological : Alert & oriented x3, No focal deficit Objective Data Labs 04/29/23 05:25 04/30/23 08:31 Labs: Laboratory Results - last 24 hr 04/30/23 04/30/23 04/30/23 08:31 11:10 16:14 ESR 99 H POC Glucose 129 H 159 H 04/30/23 05/01/23 20:35 07:19 ESR POC Glucose 146 H 202 H Microbiology Microbiology Results: Microbiology 04/18/23 18:24 Blood - Venous Blood Culture - Final No growth after 5 days. 04/18/23 18:24 Blood - Venous Blood Culture - Final No growth after 5 days. 04/19/23 14:46 Toe Gram Stain - Final 04/19/23 14:46 Toe Routine Culture - Final Strep agalactiae (Grp B) Procedures Date of Service Date of Service: 05/01/23 Assessment & Plan Assessment and plan (1) CKD (chronic kidney disease) stage 3, GFR 30-59 ml/min: Status: Acute Plan 42-YEAR-OLD DIABETIC, HYPERTENSIVE PATIENT WITH DIABETIC FOOT INFECTION WITH OSTEOMYELITIS THAT IS GOING TO REQUIRE 6 WEEKS OF IV ANTIBIOTICS. 1. Advanced stage IIIB chronic kidney disease.? As mentioned, baseline creatinine is 1.7 to 2.5 range.? Mild bump in creatinine nephrotic range proteinuria consistent with underlying diabetic hypertensive renal disease 2. 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 Osteomyelitis and need for 6 weeks of antibiotics.? recommend a Dietrich, not a PICC line given that there is a high likelihood of him ending up on renal placement therapy in the next 12 to 24 months. 4. 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 check an intact PTH, vitamin D, and phosphorus level. 5. Interventions to delay progression of kidney disease.? Our approach in this is use of CLINT inhibitor or an ARB.? Is currently on lisinopril, which we would continue for delayed renal progression.? Would not use Farxiga at this time given the ongoing infection.? Stressed the importance of no NSAIDs and strict blood pressure and blood sugar control. 6.. Mild hyperkalemia. Keep on low-potassium diet. ?7. Mild hyponatremia due to decreased free water clearance in the setting of CKD. Restrict oral free water intake. Time Spent With Patient Time: Total time managing care of this patient today ____ minutes. Progress Note: Quality Stroke Does the patient have a stroke diagnosis?: No
--- NOTE | 2023-05-01 10:24 | P.PNGS_ITS ---
Subjective Subjective Date of Service: 05/01/23 Interval history: Feels overall ok. No new complaints. Physical Exam Vital Signs: Vital Signs: Last Vital Signs Temp 97.9 F 05/01/23 07:21 Pulse 105 H 05/01/23 07:21 Resp 16 05/01/23 07:21 BP 118/70 05/01/23 07:21 Pulse Ox 99 05/01/23 07:21 O2 Del Method Room Air 05/01/23 07:21 BMI result Body Mass Index 30.1 Const: General: comfortable, no acute distress and alert [place] ation/consciousness: patient oriented x3 Resp: Effort & Inspection: normal respiratory effort Skin: Other: warm and dry Neuro: General: patient oriented x3 and moves all extremities Extrem: Other: right foot- no gangrenous tissue, 3rd and 4th toe remain slightly dusky, some granulation over wound of dorsal aspect of 4th metatarsal and plantar aspect of first Objective Data Active Medications Acetaminophen (Acetaminophen 325 Mg Tablet) 650 mg PO Q6H PRN PRN Reason: Pain, Severe (Pain Scale 7-10) Last Admin: 04/30/23 13:31 Dose: 650 mg Documented By: KAI Atorvastatin Calcium (Atorvastatin Calcium 40 Mg Tablet) 40 mg PO BEDTIME [facility] Last Admin: 04/30/23 20:42 Dose: 40 mg Documented By: JOSELIN Cyclobenzaprine HCl (Cyclobenzaprine Hcl 5 Mg Tablet) 5 mg PO TID PRN PRN Reason: back spasm Last Admin: 04/30/23 17:24 Dose: 5 mg Documented By: KAI Dextrose (Dextrose 50 % 25 Gm/50 Ml Syringe) 25 gm IVPUSH Q15M PRN; Protocol PRN Reason: per Hypoglycemia Standing Ord. Docusate Sodium (Docusate Sodium 100 Mg Capsule) 100 mg PO DAILY PRN PRN Reason: Constipation Glucose (Glucose Gel 15 Gm Gel..Gram.) 15 gm PO Q15M PRN; Protocol PRN Reason: per Hypoglycemia Standing Ord. Heparin Sodium (Porcine) (Heparin Sodium,Porcine 5,000 Unit/Ml Vial) 5,000 unit SUBCUT Q8H [facility] Last Admin: 05/01/23 05:56 Dose: 5,000 unit Documented By: JOSELIN Hydromorphone HCl (Hydromorphone Hcl 0.5 Mg/0.5 Ml Syringe) 1 mg IVPUSH Q4H PRN; Protocol PRN Reason: Pain, Severe (Pain Scale 7-10) Last Admin: 04/28/23 14:53 Dose: 1 mg Documented By: HARI Insulin Human Lispro (Insulin Lispro 100 Unit/Ml 3 Ml Vial) 0 unit SUBCUT QIDACHS [facility]; Protocol Last Admin: 05/01/23 08:55 Dose: 4 unit Documented By: SOFI Lidocaine (Lidocaine 4 % Patch Adh..Patch) 1 patch TRANSDERMA DAILY [facility]; Protocol Last Admin: 05/01/23 08:57 Dose: Not Given Documented By: SOFI Non-Admin Reason: Patient Refused Lisinopril (Lisinopril 20 Mg Tablet) 20 mg PO DAILY [facility]; Protocol Last Admin: 04/19/23 08:08 Dose: 20 mg Documented By: KAYLA Melatonin (Melatonin 3 Mg Tablet) 6 mg PO BEDTIME PRN PRN Reason: insomnia Last Admin: 04/29/23 20:58 Dose: 6 mg Documented By: MEGAN Multivitamins/Vitamin C (Multivitamin Tablet) 1 tab PO DAILY [facility] Last Admin: 05/01/23 08:56 Dose: 1 tab Documented By: SOFI Omeprazole (Omeprazole 20 Mg Capsule.Dr) 20 mg PO DAILY@0630 [facility] Last Admin: 05/01/23 05:56 Dose: 20 mg Documented By: JOSELIN Ondansetron HCl (Ondansetron Hcl 4 Mg/2 Ml Vial) 4 mg IVPUSH Q8H PRN PRN Reason: Nausea and Vomiting Last Admin: 04/21/23 12:20 Dose: 4 mg Documented By: DEEPTI Oxycodone HCl (Oxycodone Hcl Immed Release 5 Mg Tablet) 10 mg PO Q4H PRN PRN Reason: Pain, Severe (Pain Scale 7-10) Last Admin: 05/01/23 06:01 Dose: 10 mg Documented By: JOSELIN Pharmacy Consult (Consult Rx Perform Med Rec) 1 each MISCELLANE ONCE PRN PRN Reason: Consult order Polyethylene Glycol (Polyethylene Glycol 3350 17 Gm Powd.Pack) 17 gm PO DAILY PRN PRN Reason: constipation Sodium Chloride (0.9 % Sodium Chloride Flush 3 Ml Syringe) [facility] Last Admin: 05/01/23 08:57 Dose: Not Given Documented By: SOFI Non-Admin Reason: Dietrich Sodium Hypochlorite (Sodium Hypochlorite 0.25% 473 Ml Solution) 1 appl TOPICAL DAILY [facility] Last Admin: 04/30/23 09:34 Dose: 1 appl Documented By: GAUDENCIO Labs 04/29/23 05:25 04/30/23 08:31 Labs: Laboratory Results - last 24 hr 04/30/23 04/30/23 04/30/23 11:10 16:14 20:35 POC Glucose 129 H 159 H 146 H 05/01/23 07:19 POC Glucose 202 H Procedures Date of Service Date of Service: 05/01/23 Progress Note: A&P Assessment and plan (1) Amputation of toe of right foot: Status: Acute (2) Diabetic ulcer of right foot: Status: Acute Plan 42 year old male with DM admitted with wet gangrene right foot requiring 2nd toe amp initially, and extensive soft tissue debridement of gangrenous tissue in OR 04/23/23. Wound continues to look overall clean without need for urgent surgical intervention. Will continue current plan of daily local wound care and follow up in the office with Dr. Cali for further plan once medically cleared for discharge. Weight bearing on right heel only. Time Spent With Patient Time: Total time managing care of this patient today ____ minutes. Quality Stroke Does the patient have a stroke diagnosis?: No VTE Prior VTE?: No VTE Risk Level:: Medical - moderate - high VTE Device Contraindication: Treatment Not Indicated VTE Drug Contraindication: N/A - Med Ordered
[2023-05-01 11:12] LABS: Glucose, Whole Blood 96 mg/dL (60-115)
--- NOTE | 2023-05-01 11:55 | P.DS_ITS ---
DS: Providers Provider Date of Service: 05/01/23 Date of admission: 04/18/23 21:53 Date of discharge: 05/01/23 Primary care physician: [facility] Admitting clinician: Jonathan Covington Attending physician on admission: Jonathan Covington Consults: 04/18/23 21:58 Consult to General Surgery Routine Consulting Provider[place] [facility] Reason for consultation: Likely osteomyelitis of 2nd digit of right foot; left foot wound Has provider been notified: No Consult to Infectious Diseases Routine Consulting Provider: [facility] Reason for consultation: Likely osteomyelitis of 2nd digit of right foot Consult to Wound Care Routine Consulting Provider: [facility] Reason for consultation: Osteomyelitis of 2nd digit of right foot, foot ulcer of left great toe 04/21/23 08:52 Consult to Vascular Surgery Routine Consulting Provider: [facility] Reason for consultation: Foot ulcer Has provider been notified: Yes 04/27/23 09:07 Consult to Nephrology Routine Consulting Provider: Rick Hurd Reason for consultation: Central line needed for Abx 6 weeks in CKD, for clearance 04/27/23 14:37 Consult to Vascular Surgery Routine Consulting Provider: [facility] Reason for consultation: Evaluate for vascular inflow and 2nd opinion regarding right BKA Attending physician on discharge: Jonathan Covington Discharging clinician: Jonathan Covington DS: Diagnosis Discharge Diagnosis (1) Amputation of toe of right foot: Status: Acute (2) Diabetic ulcer of right foot: Status: Acute DS: Summary Hospital Course Hospital Course: 42-year-old male with a PMH significant for?HTN, HLD, non insulin-dependent diabetes type 2, and CKD stage III who presents to the ED with?right foot pain, swelling, and redness, and discoloration of his 2nd toe.? Patient states that yesterday he began noticing pain on the bottom of his right foot with walking, and had swelling and redness of right foot and lower leg. The second digit of his right foot also became discolored and the skin fell off.? Patient denies any specific pain in this toe. Patient also denies any systemic symptoms: No fever, chills, nausea, vomiting. Denies chest pain/pressure, palpitations.? No shortness of breath.? No abdominal pain.? Patient denies a history of peripheral neuropathy. Pt currently only on glipizide for diabetes type 2 management, says he has been taking his medications as prescribed, the patient noted he forgot to take his medication earlier today.? Patient also notes that he is not regularly followed by a PCP since he has been having some difficulty scheduling an appointment.? The patient has not been measuring his sugars daily or adhering to a strict diabetic diet. In the ED patient had a temperature up to 100.1, was tachycardic up to 102, and hypertensive up to 188/103. Labs were significant for leukocytosis of 35.2, H&H of 10.1/30.8, sodium of 118, chloride of 89, carbon dioxide of 17, BUN of 32, creatinine of 2.81, random glucose of 529, C-reactive protein of 27.75, albumin 2.3.? VBG pH 7.4 with VBG bicarb of 29.? Lactic acid 1.6, magnesium 2.0.? Beta hydroxybutyrate 0.04.? X-ray of right foot showed erosion and destruction of 2nd distal phalanx suggestive of osteomyelitis with marked soft tissue swelling of the 2nd digit along the dorsum of the foot.? There is also speckled foci of gas overlying the 2nd digit, unclear if intrinsic soft tissue gas or external soft tissue. EKG demonstrated sinus tachycardia of [address] elevations or depressions. Pt was treated with vanco and Zosyn, 3L normal saline, acetaminophen, and ibuprofen, and given 5 units of insulin. Pt will be admitted to the hospital for treatment further evaluation of osteomyelitis of 2nd digit of right foot in the setting of uncontrolled diabetes type 2. Hospital course: Patient was admitted for sepsis secondary to gangrenous right toe/foot wound and left foot Osteomyelitis related to diabetes: Started IV antibiotics, blood cultures sent, in addition patient was seen by General surgery and vascular surgery: Patient is status post amputation of right 2nd toe 04/19 , and extensive debridement on 04/23. xray concerning for osteomyelitis of left foot - first distal phalanx. With elevated ESR and CRP. Subsequently patient blood cultures seems to be negative, wound culture- Strep agalactiae (Grp B),continue current dressing changes. With above supportive care-patient foot seems slightly improving CRP also improving, ESR similar to before Seen by infectious disease-recommended 6 weeks of IV antibiotic ertapenem. Consider monitoring CBC, BMP, LFTs, ESR and CRP Q weekly while on antibiotics. d/w patient and his mother in detail by suregry and hospitalist service-even with adquaate antibiotic therapy chances of complete healing is are very low, patient might end up needing amputation at some point, currently patient and his mother opted for antibiotic therapy, they do not want amputation presently. Discussed with the patient and his mother in detail about rehab, they have decided to go to home with services. Patient is to follow up outpatient with PCP and surgery. plan: Complete course of IV ertapenem and date is June 05, 2023,Consider monitoring CBC, BMP, LFTs, ESR and CRP Q weekly while on antibiotics. Patient is to follow-up with surgery and wound care out patiently. Time Spent with Patient Time attestation: Total time managing care of this patient today ____ minutes. Discharge coordination time: Greater than 30 minutes Quality: Safe Use of Opioids Does Pt have an Active Cancer Diagnosis on the Problem List?: No Quality: Stroke Does the patient have a stroke diagnosis?: No Physical Exam Vital Signs: Vital Signs: Last Vital Signs Temp 97.9 F 05/01/23 07:21 Pulse 105 H 05/01/23 07:21 Resp 16 05/01/23 07:21 BP 118/70 05/01/23 07:21 Pulse Ox 99 05/01/23 07:21 O2 Del Method Room Air 05/01/23 07:21 BMI result Body Mass Index 30.1 Constitutional : Awake, interactive, not in distress Cardiovascular : RRR, no JVP, no lower extremity edema Respiratory :fair air entry,? no crackles, wheezes or rhonchi Gastrointestinal:? soft, lax, Normal bowel sounds, Non tender Skin : Warm, Dry, LLE covered with dressing, no significant erythema, RLE 2nd toe amputation, erythema seems improving, no drainage. Neurological : Alert & oriented x3, No focal deficit DS: Data Data Completed and Pending Completed studies during hospitalization [Text1]: Pending at discharge 04/19/23 14:47 Surgical Path [Surgical] [PTH] Routine 04/23/23 14:32 Surgical [PTH] Routine Labs on day of discharge: Laboratory Results - last 24 hr 04/30/23 04/30/23 05/01/23 16:14 20:35 07:19 POC Glucose 159 H 146 H 202 H 05/01/23 10:54 POC Glucose 96 Imaging Chest x-ray: Radiologist's impression: ITS Impressions Foot X-Ray 04/18/23 18:37 IMPRESSION: 1. Erosion and destruction of second distal phalanx suggestive of osteomyelitis. 2. Marked soft tissue swelling about the second digit and along the dorsum of the foot. Speckled foci of gas overlying the second digit, and unclear if the certainty this reflects intrinsic soft tissue gas such as in the setting of gas-forming infection or is external the soft tissues. Recommend correlation with physical exam. Foot X-Ray 04/18/23 22:08 IMPRESSION: Findings worrisome for osteomyelitis of the first distal phalanx nearby a laceration and soft tissue thickening. Abd US Ao-IVC-[id number] 04/21/23 15:04 IMPRESSION: Right leg: Normal ankle brachial index. Patent flow is seen within the evaluated vessels of the right lower extremity without significant stenosis. Abnormal waveforms are seen which could be due to distal microvascular disease Left leg: Normal ankle brachial index. Patent arterial flow with normal waveforms throughout the left lower extremity JUMA Reference: - >1.4 = calcified vessels - 0.9 - 1.4 = normal - no significant arterial disease - 0.7 - 0.89 = mild peripheral arterial disease - 0.51 - 0.69 = moderate peripheral arterial disease - ? 0.50 = severe peripheral arterial disease - < .30 = critical arterial disease Duplex Scan Lower Extremity Artery 04/21/23 15:04 IMPRESSION: Right leg: Normal ankle brachial index. Patent flow is seen within the evaluated vessels of the right lower extremity without significant stenosis. Abnormal waveforms are seen which could be due to distal microvascular disease Left leg: Normal ankle brachial index. Patent arterial flow with normal waveforms throughout the left lower extremity JUMA Reference: - >1.4 = calcified vessels - 0.9 - 1.4 = normal - no significant arterial disease - 0.7 - 0.89 = mild peripheral arterial disease - 0.51 - 0.69 = moderate peripheral arterial disease - ? 0.50 = severe peripheral arterial disease - < .30 = critical arterial disease Insertion Tunneled Catheter 04/29/23 12:00 IMPRESSION: Successful placement of a right internal jugular vein Dietrich catheter with ultrasound guidance. The catheter is ready for use. The tip of the catheter lies in mid SVC and is ready for use. Fluoroscopy time: 1.3 minutes. Sedation time: 28 minutes. Dose area product: 340 cGy/cm. Discharge Plan Discharge Anticipated Discharge Date/Time: 04/30/23 13:41 Patient Disposition: Home Health Service Discharge Diagnosis: Sepsis secondary to gangrenous right toe/foot wound and left foot Osteomyelitis related to diabetes Referrals: [facility] [Other] [facility] Eliecer Cali MD [Physician] - 1 Week (follow up outpatient) Morro Gaona MD [Physician] - 1 Week (follow up outpatient) Discharge Medications: New polyethylene glycol 3350 17 gram Powder In Packet 17 g PO DAILY PRN (Reason: constipation) Qty: 30 0RF HySept 0.25 % Solution 1 appl topical DAILY Qty: 30 0RF (DME) FreeStyle Lite Strips Strip Qty: 100 0RF Rx Instructions: Test four times a day or as directed. (DME) blood-glucose meter [FreeStyle Lite Meter] Kit Qty: 1 0RF Rx Instructions: As Directed alcohol swabs Pads, Medicated 1 pad TOPICAL QIDACHS Qty: 100 0RF Rx Instructions: Use four times a day or as directed. (DME) pen needle, diabetic 32 gauge x 1/4 needle Qty: 100 0RF Rx Instructions: Use four times a day or as directed. (DME) lancets [FreeStyle Lancets] 28 gauge misc Qty: 100 0RF Rx Instructions: Test four times a day or as directed. ertapenem 1 gram recon soln 1 g IV DAILY Qty: 35 0RF Rx Instructions: end date 06/05/23 oxycodone 5 mg capsule 5 mg PO BID PRN (Reason: pain) Qty: 8 0RF Rx Instructions: Partial Fill upon patient request. Continued multivitamin Tablet 1 tab PO DAILY Qty: 30 0RF atorvastatin 40 mg tablet 40 mg PO BEDTIME Qty: 30 0RF lisinopril 20 mg Tablet 20 mg PO DAILY Qty: 30 0RF melatonin 5 mg tablet 5 mg PO BEDTIME PRN (Reason: insomnia) Qty: 30 0RF glipizide 10 mg tablet extended release 24hr 10 mg PO DAILY Qty: 30 0RF omeprazole 20 mg capsule,delayed release(DR/EC) 20 mg PO DAILY@0630 Qty: 30 0RF No Action (DME) Dakins solution 1/4 strength 500ml See Rx Instructions .Route .MEDSUPPLY Qty: 1 0RF Rx Instructions: As directed Discharge Orders: Discharge Order (Routine); Ordered 04/30/23 Ordered By: Jonathan Covington Diet: Advance to usual diet Activity on Discharge: As tolerated Stand Alone Forms: Patient Portal Discharge page Care Plan Goals: Patient was admitted for sepsis secondary to gangrenous right toe/foot wound and left foot Osteomyelitis related to diabetes: Started IV antibiotics, blood cultures sent, in addition patient was seen by General surgery and vascular surgery: Patient is status post amputation of right 2nd toe 04/19 , and extensive debridement on 04/23. xray concerning for osteomyelitis of left foot - first distal phalanx. With elevated ESR and CRP. Subsequently patient blood cultures seems to be negative, wound culture- Strep agalactiae (Grp B),continue current dressing changes. With above supportive care-patient foot seems slightly improving CRP also improving, ESR similar to before Seen by infectious disease-recommended 6 weeks of IV antibiotic ertapenem. Consider monitoring CBC, BMP, LFTs, ESR and CRP Q weekly while on antibiotics. d/w patient and his mother in detail by suregry and hospitalist service-even with adquaate antibiotic therapy chances of complete healing is are very low, patient might end up needing amputation at some point, currently patient and his mother opted for antibiotic therapy, they do not want amputation presently. Discussed with the patient and his mother in detail about rehab, they have decided to go to home with services. Patient is to follow up outpatient with PCP and surgery. Health Concerns: as above. Plan of Treatment: as above. Assessment: as above. Discharge Date/Time: 05/01/23 14:22
[2023-05-01] MEDS: Ertapenem Sodium 1 GM in 0.9 % Sodium Chloride 50 ML IV (12:01)
--- NOTE | 2023-05-01 12:19 | P.F2F_ITS ---
Service Date Service Date: 05/01/23 Encounter Date of encounter: 05/01/23 Encounter: foot osteo Reasons for Services Signs and symptoms assessed: Monitor for fever or worsening wound or discharge, erythema. Reason for detention: wound care, diabetic teaching, monitoring of unstable blood sugar, medication management, medication treatment and teach disease management MD Overseeing Care: Cristina Stover Homebound: Leaving the home is medically contraindicated at this time without the asist of a device and/or another person due th the listed conditions above and below. Reason homebound: weakness related to hospital stay Certification: Based on the above findings, I certify that this patient is confined to the home and needs intermittent detention care, physical therapy and/or speech therapy, or continues to need occupational therapy. The patient is under my care, and I have initiated the establishment of the plan of care. The patient will be followed by a physician who will periodically review the plan of care. Time Spent With Patient Time: Total time managing care of this patient today ____ minutes.
--- NOTE | 2023-05-01 13:23 | HO.PM.IMPN ---
Subjective Subjective Date of Service: 05/01/23 Physical Exam Vital Signs: Vital Signs: Last Vital Signs Temp 97.9 F 05/01/23 07:21 Pulse 105 H 05/01/23 07:21 Resp 16 05/01/23 07:21 BP 118/70 05/01/23 07:21 Pulse Ox 99 05/01/23 07:21 O2 Del Method Room Air 05/01/23 07:21 BMI result Body Mass Index 30.1 Objective Data Active Medications Acetaminophen (Acetaminophen 325 Mg Tablet) 650 mg PO Q6H PRN PRN Reason: Pain, Severe (Pain Scale 7-10) Last Admin: 04/30/23 13:31 Dose: 650 mg Documented By: KAI Atorvastatin Calcium (Atorvastatin Calcium 40 Mg Tablet) 40 mg PO BEDTIME [facility] Last Admin: 04/30/23 20:42 Dose: 40 mg Documented By: JOSELIN Heparin Sodium (Porcine) 50 (units/ Sodium Chloride 5 ml) 0 units IVFLUSH ONCE PRE DISCHARGE [facility] Cyclobenzaprine HCl (Cyclobenzaprine Hcl 5 Mg Tablet) 5 mg PO TID PRN PRN Reason: back spasm Last Admin: 04/30/23 17:24 Dose: 5 mg Documented By: KAI Dextrose (Dextrose 50 % 25 Gm/50 Ml Syringe) 25 gm IVPUSH Q15M PRN; Protocol PRN Reason: per Hypoglycemia Standing Ord. Docusate Sodium (Docusate Sodium 100 Mg Capsule) 100 mg PO DAILY PRN PRN Reason: Constipation Glucose (Glucose Gel 15 Gm Gel..Gram.) 15 gm PO Q15M PRN; Protocol PRN Reason: per Hypoglycemia Standing Ord. Heparin Sodium (Porcine) (Heparin Sodium,Porcine 5,000 Unit/Ml Vial) 5,000 unit SUBCUT Q8H [facility] Last Admin: 05/01/23 05:56 Dose: 5,000 unit Documented By: JOSELIN Hydromorphone HCl (Hydromorphone Hcl 0.5 Mg/0.5 Ml Syringe) 1 mg IVPUSH Q4H PRN; Protocol PRN Reason: Pain, Severe (Pain Scale 7-10) Last Admin: 04/28/23 14:53 Dose: 1 mg Documented By: HARI Insulin Human Lispro (Insulin Lispro 100 Unit/Ml 3 Ml Vial) 0 unit SUBCUT QIDACHS [facility]; Protocol Last Admin: 05/01/23 11:13 Dose: Not Given Documented By: RADHIKA Non-Admin Reason: No Insulin Coverage Lidocaine (Lidocaine 4 % Patch Adh..Patch) 1 patch TRANSDERMA DAILY [facility]; Protocol Last Admin: 05/01/23 08:57 Dose: Not Given Documented By: SOFI Non-Admin Reason: Patient Refused Lisinopril (Lisinopril 20 Mg Tablet) 20 mg PO DAILY [facility]; Protocol Last Admin: 04/19/23 08:08 Dose: 20 mg Documented By: KAYLA Melatonin (Melatonin 3 Mg Tablet) 6 mg PO BEDTIME PRN PRN Reason: insomnia Last Admin: 04/29/23 20:58 Dose: 6 mg Documented By: MEGAN Multivitamins/Vitamin C (Multivitamin Tablet) 1 tab PO DAILY [facility] Last Admin: 05/01/23 08:56 Dose: 1 tab Documented By: SOFI Omeprazole (Omeprazole 20 Mg Capsule.Dr) 20 mg PO DAILY@0630 [facility] Last Admin: 05/01/23 05:56 Dose: 20 mg Documented By: JOSELIN Ondansetron HCl (Ondansetron Hcl 4 Mg/2 Ml Vial) 4 mg IVPUSH Q8H PRN PRN Reason: Nausea and Vomiting Last Admin: 04/21/23 12:20 Dose: 4 mg Documented By: DEEPTI Oxycodone HCl (Oxycodone Hcl Immed Release 5 Mg Tablet) 10 mg PO Q4H PRN PRN Reason: Pain, Severe (Pain Scale 7-10) Last Admin: 05/01/23 10:15 Dose: 10 mg Documented By: SOFI Pharmacy Consult (Consult Rx Perform Med Rec) 1 each MISCELLANE ONCE PRN PRN Reason: Consult order Polyethylene Glycol (Polyethylene Glycol 3350 17 Gm Powd.Pack) 17 gm PO DAILY PRN PRN Reason: constipation Sodium Chloride (0.9 % Sodium Chloride Flush 3 Ml Syringe) 3 ml IVFLUSH QSHIFT [facility] Last Admin: 05/01/23 08:57 Dose: Not Given Documented By: SOFI Non-Admin Reason: Dietrich Sodium Hypochlorite (Sodium Hypochlorite 0.25% 473 Ml Solution) 1 appl TOPICAL DAILY [facility] Last Admin: 05/01/23 10:15 Dose: 1 appl Documented By: SOFI Labs 04/29/23 05:25 04/30/23 08:31 Labs: Laboratory Results - last 24 hr 04/30/23 04/30/23 05/01/23 16:14 20:35 07:19 POC Glucose 159 H 146 H 202 H 05/01/23 10:54 POC Glucose 96 Assessment and Plan Time Spent With Patient Time: Total time managing care of this patient today ____ minutes. Quality Stroke Does the patient have a stroke diagnosis?: No VTE Prior VTE?: No VTE Risk Level:: Medical - moderate - high VTE Device Contraindication: Treatment Not Indicated VTE Drug Contraindication: N/A - Med Ordered
[2023-05-01] MEDS: Heparin Sodium,Porcine Flush 50 UNITS, 0.9 % Sodium Chloride Flush 5 ML IVFLUSH (13:50)
== END 2023-05-01 14:22 | disposition home health service (06) | DRG 710 ==
LOC: HO.ED 21:19 → HO.EDOVER 22:14 → HO.IMC 22:44 → HO.S3 04-19 13:16
PROVIDERS: Internal Medicine; Internal Medicine Nephrology; Nurse Practitioner Family; Physician Assistant; Physician Assistant Medical; Radiology Diagnostic Radiology; Student in an Organized Health Care Education/Training Program; Surgery; Admitting Provider Student in an Organized Health Care Education/Training Program; Emergency Provider Student in an Organized Health Care Education/Training Program; PCP Family Medicine; Visit Provider Internal Medicine
PROC: 0Y6R0Z0 Detachment at Right 2nd Toe, Complete, Open Approach (ICD-10-PCS; principal; 2023-04-19 13:30)
PROC: 0JBQ0ZZ Excision of Right Foot Subcutaneous Tissue and Fascia, Open Approach (ICD-10-PCS; principal; 2023-04-23 12:40)
DX: A41.9 Sepsis, unspecified organism (principal); E11.52 Type 2 diabetes mellitus with diabetic peripheral angiopathy with gangrene; N17.9 Acute kidney failure, unspecified; M86.171 Other acute osteomyelitis, right ankle and foot; D63.1 Anemia in chronic kidney disease; E11.22 Type 2 diabetes mellitus with diabetic chronic kidney disease; L97.519 Non-pressure chronic ulcer of other part of right foot with unspecified severity; M86.172 Other acute osteomyelitis, left ankle and foot; E11.69 Type 2 diabetes mellitus with other specified complication; E11.65 Type 2 diabetes mellitus with hyperglycemia; I12.9 Hypertensive chronic kidney disease with stage 1 through stage 4 chronic kidney disease, or unspecified chronic kidney disease; E78.5 Hyperlipidemia, unspecified; N18.32 Chronic kidney disease, stage 3b; E87.6 Hypokalemia; E11.621 Type 2 diabetes mellitus with foot ulcer; B95.1 Streptococcus, group B, as the cause of diseases classified elsewhere; N25.0 Renal osteodystrophy; L02.611 Cutaneous abscess of right foot; E87.5 Hyperkalemia; F17.210 Nicotine dependence, cigarettes, uncomplicated; Z71.6 Tobacco abuse counseling; Z91.148 Patient's other noncompliance with medication regimen for other reason; Z79.84 Long term (current) use of oral hypoglycemic drugs; Z79.899 Other long term (current) drug therapy
CPT/HCPCS: 36415; 36558; 73620; 80048; 80076; 80202; 81001; 82010; 82272; 82607; 82728; 82746; 82803; 82947; 83036; 83605; 83735; 83970; 84100; 84132; 85007; 85025; 85027; 85610; 85652; 86140; 87040; 87070; 87147; 87205; 88304; 88305; 88311; 93005; 93923; 93925; 99152; 99285; C1751; C1769; J0692; J1170; J1335; J1642; J1643; J2185; J2250; J2270; J2370; J2405; J2543; J2795; J3010; J3370

== ENCOUNTER 2023-05-05 16:15 | Inpatient (IN) | payer MEDICAID, SELFPAY ==
[2023-05-05 16:26] VITALS: BP 111/63; BP 162/78; PULSE 114; PULSE 116; RESP 18; TEMP 37.2; O2SAT 95; O2SAT 96; BMI 29.9
--- NOTE | 2023-05-05 16:30 | ED.GENADULT ---
HPI - General Adult General Chief complaint: Fall Stated complaint: fall Time Seen by Provider: 05/05/23 16:23 Source: patient Mode of arrival: EMS Limitations: no limitations History of Present Illness HPI narrative: Patient [age] years old diabetic hypertension CKD with osteomyelitis of the right foot status post amputation of right 2nd to discharge 05/01 on ertapenem via PICC line at home comes here as while walking in the hallway patient lost balance and had a fall hitting his head to the ground family member was next to him but could not hold him and the hallway was very narrow mother noticed he is behaving different hence she called the EMS patient went out with his friends yesterday patient denied any use of opiates. After the fall patient was shaking friend thought he took opiate overdose he give few seconds but patient denied any use of opiates no loss of consciousness no significant head injury no vomiting Related Data Home Medications Medication Instructions Recorded Confirmed canagliflozin 100 mg tablet 100 mg PO DAILY 05/05/23 (Invokana) nicotine (polacrilex) 4 mg gum 4 mg PO Q2H PRN cravings 05/05/23 05/05/23 Previous Rx's Medication Instructions Recorded polyethylene glycol 3350 17 gram 17 g PO DAILY PRN constipation #30 04/30/23 oral powder packet ea sodium hypochlorite 0.25 % 1 appl topical DAILY #30 mL 04/30/23 solution (HySept) Dakins solution 1/4 strength #1 ea 05/01/23 alcohol swabs 1 pad topical QIDACHS #100 ea 05/01/23 atorvastatin 40 mg tablet 40 mg PO BEDTIME #30 tabs 05/01/23 blood sugar diagnostic (FreeStyle #100 ea 05/01/23 Lite Strips) blood-glucose meter (FreeStyle #1 ea 05/01/23 Lite Meter kit) ertapenem 1 gram solution for 1 g IV DAILY #35 ea 05/01/23 injection glipizide 10 mg tablet, extended 10 mg PO DAILY #30 tabs 05/01/23 release 24 hr lancets 28 gauge (FreeStyle #100 ea 05/01/23 Lancets) lisinopril 20 mg tablet 20 mg PO DAILY #30 tabs 05/01/23 melatonin 5 mg tablet 5 mg PO BEDTIME PRN insomnia #30 05/01/23 tabs multivitamin 1 tab PO DAILY #30 tabs 05/01/23 omeprazole 20 mg capsule,delayed 20 mg PO DAILY@0630 #30 caps 05/01/23 release oxycodone 5 mg capsule 5 mg PO BID PRN pain #8 caps 05/01/23 pen needle, diabetic 32 gauge x #100 ea 05/01/23/ Allergies Allergy/AdvReac Type Severity Reaction Status Date / Time No Known Allergies Allergy Verified 11/26/20 14:08 [No Known Allergies*] Review of Systems Review of Systems: Yes all other systems are reviewed and are negative [facility] Past Medical History Medical History Diabetes HTN (hypertension) Hyperglycemia due to type 2 diabetes mellitus Renal failure Sleep apnea Social History Social History Household Members: Family Housing: Apartment Do you presently have visiting nurse or other home services: No Alcohol intake: never Patient Tobacco Use Status: Current everyday Tobacco user Smoked in Last 30 Days: Yes Use of substances other than those prescribed or required for medical reasons: Yes Substance Use Type: Crack/Cocaine, Heroin, Opiates and Other Substance Use Type Other:: fentanyl Advance Directives: No Advance Directives Information Provided: No Nutrition Risks: No Nutritional Risk service: No Physical Exam ED Vital Signs: Vital Signs - 24 hr 05/05/23 16:26 Temperature 98.9 F Pulse Rate 114 H Respiratory Rate 18 Blood Pressure 111/63 Pulse Oximetry 95 Oxygen Delivery Method Room Air BMI result Body Mass Index 29.9 Appearance: Alert. Oriented X3. No acute distress. Falling asleep Eyes: PERRLA, No Nystagmus ENT: Pharynx normal. Oral Mucosa moist superficial abrasion top of the head Neck: Normal inspection. Neck supple. No midline tenderness CVS: Normal heart rate and rhythm. Pulses normal. Respiratory: No respiratory distress. Equal air entry bilateral, no wheezing/rales/rhonchi Abdomen: Soft and nontender. Bowel sounds are present, no mass palpable, no CVA tenderness Skin: Skin warm and dry. Normal skin color. Normal skin turgor. Extremities: No lower extremity edema. No calf tenderness Neuro: Oriented X 3. No motor deficit. No sensory deficit.No cerebellar signs , cranial nerves II-XII intact NIH Stroke Scale Internal: Initial- Upon Arrival Level of Consciousness: Alert Level of Consciousness Questions: Answers both questions correctly Level of Consciousness Commands: Performs both tasks correctly Best Gaze: Normal Visual: No visual loss Facial Palsy: Normal Motor Arm (Right): No drift Motor Arm (Left): No drift Motor Leg (Right): No drift Motor Leg (Left): No drift Limb Ataxia: Absent Sensory: Normal Best Language: No aphasia Dysarthia: Normal Extinction and Inattention: No abnormality Score: 0 Medications Administered Generic Name Dose Route Start Last Admin Trade Name Denzel PRN Reason Stop Dose Admin Aspirin 325 mg 05/05/23 20:45 05/05/23 21:55 Aspirin 325 Mg Tablet PO Not Given DAILY [facility] Heparin Sodium (Porcine) 5,000 unit 05/05/23 20:45 05/05/23 21:55 Heparin Sodium,Porcine 5,000 Unit/Ml Vial SUBCUT 5,000 unit Q12H LYSSA Administration Insulin Human Lispro 0 unit 05/05/23 21:00 05/05/23 21:55 Insulin Lispro 100 Unit/Ml 3 Ml Vial SUBCUT Not Given QIDACHS [facility] Protocol Discontinued Medications Generic Name Dose Route Start Last Admin Trade Name Freq PRN Reason Stop Dose Admin Aspirin 325 mg 05/05/23 20:40 05/05/23 21:54 Aspirin 325 Mg Tablet PO 05/05/23 20:41 325 mg ONCE ONE Administration Sodium Chloride 1,000 mls @ 999 mls/hr 05/05/23 16:34 05/05/23 20:27 Ns IV 05/05/23 17:34 Infused .Q1H1M ONE Infusion Vancomycin HCl 2,000 mg in 500 mls @ 250 mls/hr 05/05/23 16:41 05/05/23 18:08 Vancomycin/Ns IV 05/05/23 18:40 250 mls/hr ONCE ONE Administration Sodium Chloride 1,000 mls @ 999 mls/hr 05/05/23 19:01 05/05/23 20:27 Ns IV 05/05/23 20:01 999 mls/hr .Q1H1M ONE Administration Iohexol 100 ml 05/05/23 21:33 05/05/23 21:33 Iohexol 350 Mg/Ml 100 Ml Infus..Btl IV 05/05/23 21:34 70 ml ONCE ONE Administration Medical Decision Making Medical Decision Making [facility] Narrative: Patient with postsurgical amputation right 2nd toe with healing wound but showed patient abused cocaine fentanyl from CT was negative lab workup showed MERLIN with creatinine of 3.51 from baseline of 2.2 give IV fluids and plan to admit for MERLIN Patient's CT scan of the head read as hypodensity left parietal-occipital area suspicious for acute ischemic changes. Patient NIHSS score was 0 no focal deficit noticed CTA head and neck was done which was negative for any occlusion per radiologist the hypodensity likely an artifact Lab Data MDM Lab Attestation statement: I reviewed the patient's lab results. 05/05/23 17:04 05/05/23 17:04 Labs: Lab Results 05/05/23 05/05/23 05/05/23 Range/Units 17:03 17:04 17:04 WBC 14.0 H (4.8-10.8) X10*3/uL RBC 2.87 L (4.60-5.80) X10*6/uL Hgb 7.9 L (14.0-18.0) g/dl Hct 24.9 L (42.0-52.0) % MCV 86.8 (80.0-98.0) fL MCH 27.5 (27.0-33.0) pg MCHC 31.7 (31.0-36.0) g/dl RDW 13.3 (11.0-16.0) % Plt Count 325 D (160-400) X10*3/uL MPV 11.0 (9.4-12.4) fL Immature Gran % (Auto) 0.6 H (0.0-0.4) % Neut % (Auto) 81.9 H (45-73) % Lymph % (Auto) 9.6 L (20-40) % Thomas % (Auto) 7.2 (2-11) % Eos % (Auto) 0.3 (0-4) % Baso % (Auto) 0.4 (0-2) % Lymph # (Auto) 1.4 (1.2-4.9) X10*3/uL Thomas # (Auto) 1.0 (0.1-1.2) X10*3/uL Eos # (Auto) 0.0 (0.0-0.4) X10*3/uL Baso # (Auto) 0.1 (0.0-0.2) X10*3/uL Abs Immat Gran (auto) 0.09 H (0.00-0.03) X10*3/uL Absolute Neuts (auto) 11.5 H (2.0-8.3) x10*3/uL Absolute Nucleated RBC 0.000 (0.0-0.012) X10*3/uL Nucleated RBC % (auto) 0.0 (0.0-0.2) /100WBC ESR (0-15) MM/HR PT 12.2 (10.0-13.1) SEC INR 1.1 (0.9-1.1) Sodium (135-145) mmol/L Potassium (3.3-5.1) mmol/L Chloride (96-108) mmol/L Carbon Dioxide (22-29) mmol/L Anion Gap (12-20) BUN (9-16) mg/dL Creatinine (0.5-1.4) mg/dL Estim Creat Clear Calc Estimated GFR Random Glucose (60-115) mg/dL Lactic Acid (0.5-2.0) mmol/L Calcium (8.4-10.2) mg/dL Total Bilirubin (0.0-1.0) mg/dL AST (5-37) U/L ALT (0-40) U/L Alkaline Phosphatase (39-117) U/L Total Creatine Kinase (38-174) U/L Total Protein (6.5-8.0) g/dL Albumin (3.5-5.0) g/dL Triglycerides mg/dL Cholesterol mg/dL LDL Cholesterol, Calc mg/dl HDL Cholesterol mg/dL Urine Opiates Screen POSITIVE H (Not Detect) Urine Fentanyl Screen POSITIVE H (Not Detect) Ur Barbiturates Screen Not Detected (Not Detect) Ur Phencyclidine Scrn Not Detected (Not Detect) Ur Amphetamines Screen Not Detected (Not Detect) U Benzodiazepines Scrn Not Detected (Not Detect) Urine Cocaine Screen POSITIVE H (Not Detect) U Marijuana (THC) Screen Not Detected (Not Detect) 05/05/23 05/05/23 05/05/23 Range/Units 17:04 17:04 17:04 WBC (4.8-10.8) X10*3/uL RBC (4.60-5.80) X10*6/uL Hgb (14.0-18.0) g/dl Hct (42.0-52.0) % MCV (80.0-98.0) fL MCH (27.0-33.0) pg MCHC (31.0-36.0) g/dl RDW (11.0-16.0) % Plt Count (160-400) X10*3/uL MPV (9.4-12.4) fL Immature Gran % (Auto) (0.0-0.4) % Neut % (Auto) (45-73) % Lymph % (Auto) (20-40) % Thomas % (Auto) (2-11) % Eos % (Auto) (0-4) % Baso % (Auto) (0-2) % Lymph # (Auto) (1.2-4.9) X10*3/uL Thomas # (Auto) (0.1-1.2) X10*3/uL Eos # (Auto) (0.0-0.4) X10*3/uL Baso # (Auto) (0.0-0.2) X10*3/uL Abs Immat Gran (auto) (0.00-0.03) X10*3/uL Absolute Neuts (auto) (2.0-8.3) x10*3/uL Absolute Nucleated RBC (0.0-0.012) X10*3/uL Nucleated RBC % (auto) (0.0-0.2) /100WBC ESR 113 H (0-15) MM/HR PT (10.0-13.1) SEC INR (0.9-1.1) Sodium 132 L (135-145) mmol/L Potassium 5.0 (3.3-5.1) mmol/L Chloride 100 (96-108) mmol/L Carbon Dioxide 22 (22-29) mmol/L Anion Gap 15 (12-20) BUN 36 H (9-16) mg/dL Creatinine 3.51 H (0.5-1.4) mg/dL Estim Creat Clear Calc 30.0 Estimated GFR 19 Random Glucose 96 (60-115) mg/dL Lactic Acid 0.6 (0.5-2.0) mmol/L Calcium 8.4 (8.4-10.2) mg/dL Total Bilirubin 0.4 (0.0-1.0) mg/dL AST 45 H (5-37) U/L ALT 15 (0-40) U/L Alkaline Phosphatase 136 H (39-117) U/L Total Creatine Kinase 249 H (38-174) U/L Total Protein 8.0 (6.5-8.0) g/dL Albumin 2.1 L (3.5-5.0) g/dL Triglycerides 60 mg/dL Cholesterol 93 mg/dL LDL Cholesterol, Calc 45 mg/dl HDL Cholesterol 36 mg/dL Urine Opiates Screen (Not Detect) Urine Fentanyl Screen (Not Detect) Ur Barbiturates Screen (Not Detect) Ur Phencyclidine Scrn (Not Detect) Ur Amphetamines Screen (Not Detect) U Benzodiazepines Scrn (Not Detect) Urine Cocaine Screen (Not Detect) U Marijuana (THC) Screen (Not Detect) Discharge Plan Discharge Clinical Impression: Diabetic ulcer of right foot, MERLIN (acute kidney injury), Polysubstance abuse Patient Disposition: Admitted As Inpatient
--- NOTE | 2023-05-05 20:45 | PHA.MEDREC ---
Pharmacy Consult ? Medication Reconciliation Pharmacy has completed the medication reconciliation. Spoke to patient and mother. Patient states there has not been medication changes. According to mother, patient did get their ertapenem today. I asked again about the invokana since it was picked up but not started. Patient stated he is supposed to take it, but hadn't started them since his foot issue. Patient also states he is not on insulin Joe
--- NOTE | 2023-05-05 21:35 | PC.NURSE ---
Went into give meds and assess pt, but pt is in CAT scan
[2023-05-05 21:50] VITALS: BP 124/45; PULSE 100; RESP 18; TEMP 36.7; O2SAT 98
--- NOTE | 2023-05-05 22:05 | PM.IMHP ---
History of Present Illness Date of Service: 05/05/23 Attending physician on admission: Sharif Duvall Chief Complaint: ams 42-year-old male with history of hypertension, hyperlipidemia, zki-kwvqhob-[id number] type 2 diabetes, CKD stage 3, and polysubstance abuse recently admitted to the hospital for osteomyelitis of the right foot s/p amputation of the right 2nd toe with discharge on 05/01 on IV ertapenem with PICC line in place presented to the ED with his mother after being observed to have lost his balance falling forward hitting his head on the ground. There was no loss of consciousness. The fall was shortly before arrival at around 14:00. The patient is unable to verbalize though makes attempts at speech that is incoherent. His mother states this is not his baseline. He is also noted to be making jerking movements with his head in rapid eye movements. The patient adamantly denies any drug use but urine tox screen is positive for opiates, fentanyl, and cocaine. On arrival, patient is tachycardic at 114, vitals otherwise within normal limits. There is a leukocytosis of 14.0. Normocytic anemia with H/H 7.9/24.9% (H/H on 04/29 8.6/27.9%). Creatinine 3.51, BUN 36. Creatinine on discharge 2.24. Sodium 132, potassium 5.0, chloride 100, CO2 22, glucose 133. Total CK 249. X-ray of the right foot is negative for acute fracture dislocation or subluxation without any apparent bony erosive changes, soft tissue gas or swelling. Head CT shows hyperdensity left parietal occipital lobe suspicious for acute ischemic changes, recommend correlation with MRI brain. No acute intracranial bleed or mass effect. CTA of the head/neck ordered with angiogram of the head and neck essentially normal but does show dilatation of the main pulmonary arteries which can be seen the setting of pulmonary artery hypertension, clinically correlate. There is also emphysematous changes at the lung apices. In the ED, given 2000 mg IV vancomycin and 2 L IV NS. Review of Systems Review of Systems: Yes Unobtainable due to mental condition and Unobtainable due to mental status PMFSH Medical History Amputation of toe of right foot CKD (chronic kidney disease) stage 3, GFR 30-59 ml/min Diabetes Diabetic ulcer of right foot Foot osteomyelitis, left HTN (hypertension) Hyperglycemia due to type 2 diabetes mellitus Polysubstance abuse Renal failure Sleep apnea Social History Household Members: Family Housing: Apartment Do you presently have visiting nurse or other home services: No Alcohol intake: never Patient Tobacco Use Status: Current everyday Tobacco user Smoked in Last 30 Days: Yes Substance Use Type: Crack/Cocaine Advance Directives: No Advance Directives Information Provided: No Nutrition Risks: No Nutritional Risk service: No Meds Allergies Allergy/AdvReac Type Severity Reaction Status Date / Time No Known Allergies Allergy Verified 11/26/20 14:08 [No Known Allergies*] Active Medications: Current Medications Acetaminophen (Acetaminophen 325 Mg Tablet) 650 mg PO Q6H PRN PRN Reason: Pain, Mild (Pain Scale 1-3) Aspirin (Aspirin 325 Mg Tablet) 325 mg PO DAILY [facility] Last Admin: 05/05/23 21:55 Dose: Not Given Aspirin (Aspirin Enteric Coated 81 Mg Tablet.) 81 mg PO DAILY [facility] Dextrose (Dextrose 50 % 25 Gm/50 Ml Syringe) 25 gm IVPUSH Q15M PRN; Protocol PRN Reason: per Hypoglycemia Standing Ord. Docusate Sodium (Docusate Sodium 100 Mg Capsule) 100 mg PO DAILY PRN PRN Reason: Constipation Glucose (Glucose Gel 15 Gm Gel..Gram.) 15 gm PO Q15M PRN; Protocol PRN Reason: per Hypoglycemia Standing Ord. Heparin Sodium (Porcine) (Heparin Sodium,Porcine 5,000 Unit/Ml Vial) 5,000 unit SUBCUT Q12H [facility] Last Admin: 05/05/23 21:55 Dose: 5,000 unit Meropenem 1 gm/ Sodium (Chloride) 100 mls @ 200 mls/hr IV Q12H [facility] Insulin Human Lispro (Insulin Lispro 100 Unit/Ml 3 Ml Vial) 0 unit SUBCUT QIDACHS [facility]; Protocol Last Admin: 05/05/23 21:55 Dose: Not Given Ondansetron HCl (Ondansetron Hcl 4 Mg/2 Ml Vial) 4 mg IVPUSH Q8H PRN PRN Reason: Nausea and Vomiting Sodium Chloride (0.9 % Sodium Chloride Flush 3 Ml Syringe) 3 ml IVFLUSH QSHIFT [facility] Home Medications Medication Instructions Recorded Confirmed Last Taken Type canagliflozin 100 mg tablet 100 mg PO DAILY 05/05/23 Unknown History (Invokana) nicotine (polacrilex) 4 mg gum 4 mg PO Q2H PRN cravings 05/05/23 05/05/23 Unknown History Physical Exam Vital Signs and Narrative: Vital Signs: Last Vital Signs Temp 98.0 F 05/05/23 21:50 Pulse 100 05/05/23 21:50 Resp 18 05/05/23 21:50 BP 124/45 L 05/05/23 21:50 Pulse Ox 98 05/05/23 21:50 O2 Del Method Room Air 05/05/23 21:50 BMI result Body Mass Index 29.9 Constitutional - Awake and Alert, No apparent distress Eyes - PERRLA, EOMI Cardiovascular - S1S2, RRR, No edema Respiratory - Normal lung expansion, Normal respiratory effort, No respiratory distress, CTA bilaterally Gastrointestinal - NT / ND; +BS; No rebound or guarding Extremities - no calf tenderness bilaterally, RLE swelling without erythema or warmth Skin - Warm/Dry. Stage 4 ulceration along the plantar surface right foot that is dry and without purulent drainage with stage 2 ulcerations on the plantar aspect of thte 3rd and 4th right toes. He is s/p right 2nd toe amputation. Macerated, sloughing skin noted on the dorsal aspect of the right toes. Neurological - Alert, unable to determine orientation as patient is verbal but speaking incoherently at most time occassionally answering questions with 1 word or short phrase. EOMI, CN II-XII appear in tact but unable to follow commands to fully assess. He is noted to have jerking movements, rapid eye movements. 5/5 strength BUE and BLE Results Labs 05/05/23 17:04 05/05/23 17:04 Labs: Laboratory Results - last 24 hr 05/05/23 05/05/23 05/05/23 17:03 17:04 17:04 MCV 86.8 MCH 27.5 MCHC 31.7 RDW 13.3 Plt Count 325 D MPV 11.0 Immature Gran % (Auto) 0.6 H Neut % (Auto) 81.9 H Lymph % (Auto) 9.6 L Hemphill % (Auto) 7.2 Eos % (Auto) 0.3 Baso % (Auto) 0.4 Lymph # (Auto) 1.4 Hemphill # (Auto) 1.0 Eos # (Auto) 0.0 Baso # (Auto) 0.1 Abs Immat Gran (auto) 0.09 H Absolute Neuts (auto) 11.5 H Absolute Nucleated RBC 0.000 Nucleated RBC % (auto) 0.0 ESR PT 12.2 INR 1.1 Anion Gap Estim Creat Clear Calc Estimated GFR POC Glucose Random Glucose Lactic Acid Calcium Total Bilirubin AST ALT Alkaline Phosphatase Total Creatine Kinase Total Protein Albumin Triglycerides Cholesterol LDL Cholesterol, Calc HDL Cholesterol Urine Opiates Screen POSITIVE H Urine Fentanyl Screen POSITIVE H Ur Barbiturates Screen Not Detected Ur Phencyclidine Scrn Not Detected Ur Amphetamines Screen Not Detected U Benzodiazepines Scrn Not Detected Urine Cocaine Screen POSITIVE H U Marijuana (THC) Screen Not Detected 05/05/23 05/05/23 05/05/23 17:04 17:04 17:04 MCV MCH MCHC RDW Plt Count MPV Immature Gran % (Auto) Neut % (Auto) Lymph % (Auto) Hemphill % (Auto) Eos % (Auto) Baso % (Auto) Lymph # (Auto) Hemphill # (Auto) Eos # (Auto) Baso # (Auto) Abs Immat Gran (auto) Absolute Neuts (auto) Absolute Nucleated RBC Nucleated RBC % (auto) ESR 113 H PT INR Anion Gap 15 Estim Creat Clear Calc 30.0 Estimated GFR 19 POC Glucose Random Glucose 96 Lactic Acid 0.6 Calcium 8.4 Total Bilirubin 0.4 AST 45 H ALT 15 Alkaline Phosphatase 136 H Total Creatine Kinase 249 H Total Protein 8.0 Albumin 2.1 L Triglycerides 60 Cholesterol 93 LDL Cholesterol, Calc 45 HDL Cholesterol 36 Urine Opiates Screen Urine Fentanyl Screen Ur Barbiturates Screen Ur Phencyclidine Scrn Ur Amphetamines Screen U Benzodiazepines Scrn Urine Cocaine Screen U Marijuana (THC) Screen 05/05/23 21:51 MCV MCH MCHC RDW Plt Count MPV Immature Gran % (Auto) Neut % (Auto) Lymph % (Auto) Hemphill % (Auto) Eos % (Auto) Baso % (Auto) Lymph # (Auto) Hemphill # (Auto) Eos # (Auto) Baso # (Auto) Abs Immat Gran (auto) Absolute Neuts (auto) Absolute Nucleated RBC Nucleated RBC % (auto) ESR PT INR Anion Gap Estim Creat Clear Calc Estimated GFR POC Glucose 133 H Random Glucose Lactic Acid Calcium Total Bilirubin AST ALT Alkaline Phosphatase Total Creatine Kinase Total Protein Albumin Triglycerides Cholesterol LDL Cholesterol, Calc HDL Cholesterol Urine Opiates Screen Urine Fentanyl Screen Ur Barbiturates Screen Ur Phencyclidine Scrn Ur Amphetamines Screen U Benzodiazepines Scrn Urine Cocaine Screen U Marijuana (THC) Screen Imaging Radiologist's Impressions: Impressions Foot X-Ray 05/05/23 16:51 IMPRESSION: Amputation of distal second digit. No visible acute fracture, dislocation or subluxation seen. No bony erosive changes. No soft tissue gas or swelling. Head CT 05/05/23 18:43 IMPRESSION: 1. Hypodensity left parietal occipital lobe suspicious for acute ischemic changes. Recommend correlation with MRI brain. 2. There is no acute intracranial bleed or mass effect. Venous Duplex 05/05/23 21:15 IMPRESSION: No DVT demonstrated in the right lower extremity. Bilateral groin lymph nodes Head/Neck CTA 05/05/23 21:37 IMPRESSION: Normal CT angiogram of the head and neck. Dilatation of the main pulmonary arteries which can be seen in the setting of pulmonary artery hypertension; clinically correlate. Emphysematous changes at the lung apices. Kyphotic curvature at the cervicothoracic junction with moderate to severe spondylosis. Imaging findings reported to Dr. Farr at 10:00 PM on 05/05/2023. Assessment and Plan (1) Acute CVA (cerebrovascular accident): Status: Acute (2) Toxic metabolic encephalopathy: Status: Acute (3) Cocaine intoxication: Status: Acute (4) MERLIN (acute kidney injury): Status: Acute Plan 42-year-old male with history of hypertension, hyperlipidemia, fws-apynixh-ncdzaimre type 2 diabetes, CKD stage 3, and polysubstance abuse recently admitted to the hospital for osteomyelitis of the right foot s/p amputation of the right 2nd toe with discharge on 05/01 on IV ertapenem with PICC line in place admitted for acute ischemic CVA with acute toxic metabolic encephalopathy and MERLIN. # acute ischemic CVA- likely related to cocaine abuse -head CT showing acute ischemia in the left parietal and occipital area -CTA head/neck normal with regard to head and neck. See below -MRI brain ordered -Passed nursing bedside swallow eval -ASA 325 mg given, continue ASA 81 mg daily -total cholesterol 93, HDL 36, LDL at goal at 45, triglycerides 60. Continue atorvastatin 40 mg daily -neurology consult -monitor on telemetry -PT, OT, [employer] evaluation # acute toxic metabolic encephalopathy -related to cocaine abuse, also possibly related to above -monitor mentation # acute kidney injury- likely related to polysubstance abuse -baseline CKD stage 3 -received 2 L IV NS in the ED. Hold on additional IV fluids -CPK mildly elevated at 02:49 but not consistent with rhabdomyolysis -hold nephrotoxins -follow BMP, Divalents #RLE swelling -Venous duplex negative # stage IV diabetic ulcer of the right foot s/p right 2nd toe amputation -does not appear acutely infected -applications consultant consulted # acute osteomyelitis left toe -discharged on 05/01 with PICC line for IV ertapenem -change to renally dosed meropenem while inpatient -id consulted # chronic leukocytosis -likely related to osteomyelitis, has trended down # zmo-loafnkm-vbfspolgd type 2 diabetes -hold glipizide, Invokana -POC glucose, diabetic diet -Humalog on sliding scale # hypertension -reasonably controlled -hold lisinopril in setting of MERLIN # polysubstance abuse -patient adamantly denies substance use but urine tox screen positive for opiates, fentanyl, and cocaine -addiction medicine consult DVT prophylaxis-heparin Full code Patient requires inpatient stay of at least 2 midnights for management of acute ischemic CVA with acute toxic metabolic encephalopathy. Time Spent With Patient Time: Total time managing care of this patient today ____ minutes. Quality Stroke Does the patient have a stroke diagnosis?: No VTE Prior VTE?: No VTE Risk Level:: Medical - moderate - high VTE Device Contraindication: Treatment Not Indicated VTE Drug Contraindication: N/A - Med Ordered
--- NOTE | 2023-05-05 23:16 | PC.NURSE ---
Patient alert and oriented x 3. Patient denies c/o pain on left side of face and back. tele: sinus tachycardia
[2023-05-06] VITALS (7 sets, daily range): BP systolic 114–140; BP diastolic 62–68; PULSE 90–106; RESP 18–20; TEMP 36.4–37.2; O2SAT 96–98
--- NOTE | 2023-05-06 00:30 | PC.NURSE ---
Took over care from RN Sue, pt resting in bed, no sign of distress, pt on bed side monitor. Mother at the bedside. Pt is resting at this time. Will continue to monitor.
--- NOTE | 2023-05-06 00:35 | PC.NURSE ---
pt able to state location, date of , nuero intact. pt able to follow command. Will continue to monitor.
--- NOTE | 2023-05-06 08:00 | PC.NURSE ---
Surgery at bedside- Dr. Cali for consult at this time
--- NOTE | 2023-05-06 09:10 | PM.NEUROCN ---
History of Present Illness Data of Consult Service Date: 05/06/23 Primary Care Provider: [facility] Reason for consult: Encephalopathy 42 years old man with uncontrolled diabetes and its complications including a recent amputation of right toe and polysubstance abuse who was recently admitted hospital when he had surgery. He came to hospital again with main complaint of losing balance and falling down. His initial tox screen revealed fentanyl and cocaine positivity. When I asked him if he was drinking and using drugs, he said no. Review of Systems Review of Systems: No recent cold or flu-like illness or fever. [facility] Past Medical History Medical History Amputation of toe of right foot CKD (chronic kidney disease) stage 3, GFR 30-59 ml/min Diabetes Diabetic ulcer of right foot Foot osteomyelitis, left HTN (hypertension) Hyperglycemia due to type 2 diabetes mellitus Polysubstance abuse Renal failure Sleep apnea Social History Social History Household Members: Family Housing: Apartment Do you presently have visiting nurse or other home services: No Alcohol intake: never Patient Tobacco Use Status: Current everyday Tobacco user Tobacco use type: Cigarette Smoked in Last 30 Days: Yes Frequency of e-Cigarette/Vaping Use: 12 Use of substances other than those prescribed or required for medical reasons: Yes Substance Use Type: Crack/Cocaine, Heroin, Opiates and Other Substance Use Type Other:: fentanyl Currently Displaying Signs/Symptoms of Drug Intoxication Withdrawal: No Have you been hit, kicked, punched, or otherwise hurt by someone within the past year? If so, by whom?: No Is there a partner from a previous relationship who is making you feel unsafe now?: No Are you made to feel afraid or neglected: No Advance Directives: No Advance Directives Information Provided: No Do you have thoughts of harming others: None Do you have a plan to hurt others: No Plan Nutrition Risks: No Nutritional Risk service: No Meds Allergies Allergy/AdvReac Type Severity Reaction Status Date / Time No Known Allergies Allergy Verified 11/26/20 14:08 [No Known Allergies*] Active Medications: Current Medications Acetaminophen (Acetaminophen 325 Mg Tablet) 650 mg PO Q6H PRN PRN Reason: Pain, Mild (Pain Scale 1-3) Last Admin: 05/06/23 07:48 Dose: 650 mg Aspirin (Aspirin Enteric Coated 81 Mg Tablet.) 81 mg PO DAILY [facility] Last Admin: 05/06/23 07:50 Dose: 81 mg Atorvastatin Calcium (Atorvastatin Calcium 40 Mg Tablet) 40 mg PO BEDTIME [facility] Last Admin: 05/05/23 22:21 Dose: 40 mg Dextrose (Dextrose 50 % 25 Gm/50 Ml Syringe) 25 gm IVPUSH Q15M PRN; Protocol PRN Reason: per Hypoglycemia Standing Ord. Docusate Sodium (Docusate Sodium 100 Mg Capsule) 100 mg PO DAILY PRN PRN Reason: Constipation Glucose (Glucose Gel 15 Gm Gel..Gram.) 15 gm PO Q15M PRN; Protocol PRN Reason: per Hypoglycemia Standing Ord. Heparin Sodium (Porcine) (Heparin Sodium,Porcine 5,000 Unit/Ml Vial) 5,000 unit SUBCUT Q12H [facility] Last Admin: 05/06/23 07:50 Dose: 5,000 unit Meropenem 1 gm/ Sodium (Chloride) 100 mls @ 200 mls/hr IV Q12H [facility] Last Infusion: 05/06/23 01:54 Dose: Infused Insulin Human Lispro (Insulin Lispro 100 Unit/Ml 3 Ml Vial) 0 unit SUBCUT QIDACHS [facility]; Protocol Last Admin: 05/06/23 07:55 Dose: Not Given Melatonin (Melatonin 3 Mg Tablet) 6 mg PO BEDTIME PRN PRN Reason: insomnia Multivitamins/Vitamin C (Multivitamin Tablet) 1 tab PO DAILY [facility] Last Admin: 05/06/23 07:49 Dose: 1 tab Nicotine Polacrilex (Nicotine Polacrilex 2 Mg Gum) 4 mg BUCCAL Q2H PRN PRN Reason: cravings Omeprazole (Omeprazole 20 Mg Capsule.) 20 mg PO DAILY@0630 [facility] Last Admin: 05/06/23 06:31 Dose: Not Given Ondansetron HCl (Ondansetron Hcl 4 Mg/2 Ml Vial) 4 mg IVPUSH Q8H PRN PRN Reason: Nausea and Vomiting Oxycodone HCl (Oxycodone Hcl Immed Release 5 Mg Tablet) 5 mg PO BID PRN PRN Reason: severe pain Last Admin: 05/06/23 07:49 Dose: 5 mg Polyethylene Glycol (Polyethylene Glycol 3350 17 Gm Powd.Pack) 17 gm PO DAILY PRN PRN Reason: constipation Sodium Chloride (0.9 % Sodium Chloride Flush 3 Ml Syringe) 3 ml IVFLUSH QSHIFT [facility] Last Admin: 05/06/23 07:51 Dose: 3 ml Sodium Hypochlorite (Sodium Hypochlorite 0.25% 473 Ml Solution) 1 appl TOPICAL DAILY [facility] Home Medications Medication Instructions Recorded Confirmed Last Taken Type canagliflozin 100 mg tablet 100 mg PO DAILY 05/05/23 Unknown History (Invokana) nicotine (polacrilex) 4 mg gum 4 mg PO Q2H PRN cravings 05/05/23 05/05/23 Unknown History Physical Exam Vital Signs: Vital Signs: Last Vital Signs Temp 98.0 F 05/06/23 07:49 Pulse 99 05/06/23 07:49 Resp 20 05/06/23 07:49 BP 122/62 05/06/23 07:49 Pulse Ox 97 05/06/23 07:49 O2 Del Method Room Air 05/06/23 03:34 BMI result Body Mass Index 29.9 Neuro: Other: He is alert and awake with slightly vague affect. Mild position changing nystagmus is noted in both eyes. Face is symmetrical. Visual thomson are full. Pupils are about 2-3 mm round reactive. Tongue is midline. Palate elevated symmetrically. There is no obvious focal weakness in arms. Right foot is in bandages. Distal toes and left foot her bluish. Deep tendon reflexes are trace to 1+ in knees. Plantars could not be properly checked. Results Labs 05/06/23 05:50 05/06/23 05:50 Labs: Short CBC 05/05/23 05/06/23 Range/Units 17:04 05:50 WBC 14.0 H 14.6 H (4.8-10.8) X10*3/uL Hgb 7.9 L 8.6 L (14.0-18.0) g/dl Hct 24.9 L 28.4 L (42.0-52.0) % Plt Count 325 D 228 D (160-400) X10*3/uL BMP 05/05/23 05/06/23 17:04 05:50 Sodium 132 L 135 Potassium 5.0 4.7 Chloride 100 106 Carbon Dioxide 22 21 L BUN 36 H 30 H Creatinine 3.51 H 2.92 H Calcium 8.4 8.5 Cardiac Enzymes 05/05/23 Range/Units 17:04 Total Creatine Kinase 249 H (38-174) U/L Liver Function 05/05/23 Range/Units 17:04 Total Bilirubin 0.4 (0.0-1.0) mg/dL AST 45 H (5-37) U/L ALT 15 (0-40) U/L Alkaline Phosphatase 136 H (39-117) U/L Albumin 2.1 L (3.5-5.0) g/dL Noncontrast head CT did not reveal any significant abnormality. CTA did not reveal any vascular lesion. Assessment and Plan (1) Toxic metabolic encephalopathy: Status: Acute 42 years old man who was given a PICC line recently for medications related to surgery. He is admitted in hospital with nonspecific symptoms and fall while at the same time positive for fentanyl and cocaine. His examination revealed wake affect and eye movement abnormalities with some myoclonic type of movements described by his family. 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 His family and he should be clearly informed and educated about this problem. Otherwise continuation of underlying conditions is recommended. Time Spent With Patient Time: Total time managing care of this patient today ____ minutes. Procedures Date of Service Date of Service: 05/06/23
--- NOTE | 2023-05-06 10:34 | HO.PM.IMPN ---
Subjective Subjective Date of Service: 05/06/23 Interval History: Awake alert offers no acute complaints denies pain, denies weakness numbness, no speech impairment, denies visual impairment, tolerating diet, no nausea, no vomiting, no abdominal pain. Review of Systems All other system reviewed and negative. Physical Exam Vital Signs: Vital Signs: Last Vital Signs Temp 98.0 F 05/06/23 07:49 Pulse 99 05/06/23 07:49 Resp 20 05/06/23 07:49 BP 122/62 05/06/23 07:49 Pulse Ox 97 05/06/23 07:49 O2 Del Method Room Air 05/06/23 03:34 BMI result Body Mass Index 29.9 Const: Other: Constitutional : Awake, alert x3 in no acute distress Neck : Supple Cardiovascular : RRR, no JVP, no lower extremity edema Respiratory : good bilateral air entry,? no crackles, wheezes or rhonchi Gastrointestinal:? soft, Normal bowel sounds, Non tender Skin : Warm, Neurological : Alert & oriented x3, No focal deficit Right foot dressing in place, 2nd toe amputated, see pictures of right foot admission note Objective Data Active Medications Acetaminophen (Acetaminophen 325 Mg Tablet) 650 mg PO Q6H PRN PRN Reason: Pain, Mild (Pain Scale 1-3) Last Admin: 05/06/23 07:48 Dose: 650 mg Documented By: KIM Aspirin (Aspirin Enteric Coated 81 Mg Tablet.) 81 mg PO DAILY [facility] Last Admin: 05/06/23 07:50 Dose: 81 mg Documented By: KIM Atorvastatin Calcium (Atorvastatin Calcium 40 Mg Tablet) 40 mg PO BEDTIME [facility] Last Admin: 05/05/23 22:21 Dose: 40 mg Documented By: JOSÉ Dextrose (Dextrose 50 % 25 Gm/50 Ml Syringe) 25 gm IVPUSH Q15M PRN; Protocol PRN Reason: per Hypoglycemia Standing Ord. Docusate Sodium (Docusate Sodium 100 Mg Capsule) 100 mg PO DAILY PRN PRN Reason: Constipation Glucose (Glucose Gel 15 Gm Gel..Gram.) 15 gm PO Q15M PRN; Protocol PRN Reason: per Hypoglycemia Standing Ord. Heparin Sodium (Porcine) (Heparin Sodium,Porcine 5,000 Unit/Ml Vial) 5,000 unit SUBCUT Q12H [facility] Last Admin: 05/06/23 07:50 Dose: 5,000 unit Documented By: KIM Meropenem 1 gm/ Sodium (Chloride) 100 mls @ 200 mls/hr IV Q12H [facility] Last Infusion: 05/06/23 01:54 Dose: 0 mls/hr Documented By: DANIELLE Insulin Human Lispro (Insulin Lispro 100 Unit/Ml 3 Ml Vial) 0 unit SUBCUT QIDACHS [facility]; Protocol Last Admin: 05/06/23 07:55 Dose: Not Given Documented By: KIM Non-Admin Reason: No Insulin Coverage Melatonin (Melatonin 3 Mg Tablet) 6 mg PO BEDTIME PRN PRN Reason: insomnia Methadone HCl (Methadone Hcl 20 Mg/2 Ml Oral.Conc) 10 mg PO Q4H PRN PRN Reason: Opiate Withdrawal Multivitamins/Vitamin C (Multivitamin Tablet) 1 tab PO DAILY [facility] Last Admin: 05/06/23 07:49 Dose: 1 tab Documented By: KIM Nicotine Polacrilex (Nicotine Polacrilex 2 Mg Gum) 4 mg BUCCAL Q2H PRN PRN Reason: cravings Omeprazole (Omeprazole 20 Mg Capsule.Dr) 20 mg PO DAILY@0630 [facility] Last Admin: 05/06/23 06:31 Dose: Not Given Documented By: DANIELLE Non-Admin Reason: NPO Ondansetron HCl (Ondansetron Hcl 4 Mg/2 Ml Vial) 4 mg IVPUSH Q8H PRN PRN Reason: Nausea and Vomiting Oxycodone HCl (Oxycodone Hcl Immed Release 5 Mg Tablet) 5 mg PO BID PRN PRN Reason: severe pain Last Admin: 05/06/23 07:49 Dose: 5 mg Documented By: KIM Polyethylene Glycol (Polyethylene Glycol 3350 17 Gm Powd.Pack) 17 gm PO DAILY PRN PRN Reason: constipation Sodium Chloride (0.9 % Sodium Chloride Flush 3 Ml Syringe) 3 ml IVFLUSH QSHIFT [facility] Last Admin: 05/06/23 07:51 Dose: 3 ml Documented By: KIM Sodium Hypochlorite (Sodium Hypochlorite 0.25% 473 Ml Solution) 1 appl TOPICAL DAILY [facility] Last Admin: 05/06/23 10:07 Dose: Not Given Documented By: KIM Non-Admin Reason: Med Not Available Labs 05/06/23 05:50 05/06/23 05:50 Labs: Laboratory Results - last 24 hr 05/05/23 05/05/23 05/05/23 17:03 17:04 17:04 MCV 86.8 MCH 27.5 MCHC 31.7 RDW 13.3 Plt Count 325 D MPV 11.0 Immature Gran % (Auto) 0.6 H Neut % (Auto) 81.9 H Lymph % (Auto) 9.6 L [place] % (Auto) 7.2 Eos % (Auto) 0.3 Baso % (Auto) 0.4 Lymph # (Auto) 1.4 [place] # (Auto) 1.0 Eos # (Auto) 0.0 Baso # (Auto) 0.1 Abs Immat Gran (auto) 0.09 H Absolute Neuts (auto) 11.5 H Absolute Nucleated RBC 0.000 Nucleated RBC % (auto) 0.0 ESR PT 12.2 INR 1.1 Anion Gap Estim Creat Clear Calc Estimated GFR POC Glucose Random Glucose Lactic Acid Calcium Total Bilirubin AST ALT Alkaline Phosphatase Total Creatine Kinase Total Protein Albumin Triglycerides Cholesterol LDL Cholesterol, Calc HDL Cholesterol Urine Opiates Screen POSITIVE H Urine Fentanyl Screen POSITIVE H Ur Barbiturates Screen Not Detected Ur Phencyclidine Scrn Not Detected Ur Amphetamines Screen Not Detected U Benzodiazepines Scrn Not Detected Urine Cocaine Screen POSITIVE H U Marijuana (THC) Screen Not Detected 05/05/23 05/05/23 05/05/23 17:04 17:04 17:04 MCV MCH MCHC RDW Plt Count MPV Immature Gran % (Auto) Neut % (Auto) Lymph % (Auto) [place] % (Auto) Eos % (Auto) Baso % (Auto) Lymph # (Auto) [place] # (Auto) Eos # (Auto) Baso # (Auto) Abs Immat Gran (auto) Absolute Neuts (auto) Absolute Nucleated RBC Nucleated RBC % (auto) ESR 113 H PT INR Anion Gap 15 Estim Creat Clear Calc 30.0 Estimated GFR 19 POC Glucose Random Glucose 96 Lactic Acid 0.6 Calcium 8.4 Total Bilirubin 0.4 AST 45 H ALT 15 Alkaline Phosphatase 136 H Total Creatine Kinase 249 H Total Protein 8.0 Albumin 2.1 L Triglycerides 60 Cholesterol 93 LDL Cholesterol, Calc 45 HDL Cholesterol 36 Urine Opiates Screen Urine Fentanyl Screen Ur Barbiturates Screen Ur Phencyclidine Scrn Ur Amphetamines Screen U Benzodiazepines Scrn Urine Cocaine Screen U Marijuana (THC) Screen 05/05/23 05/06/23 05/06/23 21:51 05:50 05:50 MCV 89.3 MCH 27.0 MCHC 30.3 L RDW 13.3 Plt Count 228 D MPV 11.2 Immature Gran % (Auto) 0.6 H Neut % (Auto) 76.5 H Lymph % (Auto) 14.0 L [place] % (Auto) 7.3 Eos % (Auto) 1.0 Baso % (Auto) 0.6 Lymph # (Auto) 2.0 [place] # (Auto) 1.1 Eos # (Auto) 0.2 Baso # (Auto) 0.1 Abs Immat Gran (auto) 0.09 H Absolute Neuts (auto) 11.1 H Absolute Nucleated RBC 0.000 Nucleated RBC % (auto) 0.0 ESR PT INR Anion Gap 13 Estim Creat Clear Calc 36.1 Estimated GFR 24 POC Glucose 133 H Random Glucose 88 Lactic Acid Calcium 8.5 Total Bilirubin AST ALT Alkaline Phosphatase Total Creatine Kinase Total Protein Albumin Triglycerides Cholesterol LDL Cholesterol, Calc HDL Cholesterol Urine Opiates Screen Urine Fentanyl Screen Ur Barbiturates Screen Ur Phencyclidine Scrn Ur Amphetamines Screen U Benzodiazepines Scrn Urine Cocaine Screen U Marijuana (THC) Screen 05/06/23 07:51 MCV MCH MCHC RDW Plt Count MPV Immature Gran % (Auto) Neut % (Auto) Lymph % (Auto) [place] % (Auto) Eos % (Auto) Baso % (Auto) Lymph # (Auto) [place] # (Auto) Eos # (Auto) Baso # (Auto) Abs Immat Gran (auto) Absolute Neuts (auto) Absolute Nucleated RBC Nucleated RBC % (auto) ESR PT INR Anion Gap Estim Creat Clear Calc Estimated GFR POC Glucose 88 Random Glucose Lactic Acid Calcium Total Bilirubin AST ALT Alkaline Phosphatase Total Creatine Kinase Total Protein Albumin Triglycerides Cholesterol LDL Cholesterol, Calc HDL Cholesterol Urine Opiates Screen Urine Fentanyl Screen Ur Barbiturates Screen Ur Phencyclidine Scrn Ur Amphetamines Screen U Benzodiazepines Scrn Urine Cocaine Screen U Marijuana (THC) Screen Assessment and Plan (1) Toxic metabolic encephalopathy: Status: Acute (2) MERLIN (acute kidney injury): Status: Acute Plan 42-year-old male with history of hypertension, hyperlipidemia, [id number] type 2 diabetes, CKD stage 3, and polysubstance abuse recently admitted to the hospital for osteomyelitis of the right foot s/p amputation of the right 2nd toe with discharge on 05/01 on IV ertapenem with PICC line in place admitted for acute ischemic CVA with acute toxic metabolic encephalopathy and MERLIN. # transient speech impairment with jerky movement of head/eyes -head CT showed hypodensity left parietal occipital lobe suspicious for acute ischemic change. -CTA head/neck normal with regard to head and neck.? -MRI brain ordered -ASA 325 mg given, continue ASA 81 mg daily -total cholesterol 93, HDL 36, LDL 45, triglycerides 60.? Continue atorvastatin 40 mg daily -seen by neurologist Dr. Salas he feels patient symptoms are related to cocaine induced toxic encephalopathy -follow-up MRI brain, PT, OT, CODING ADVISOR evaluation # acute toxic metabolic encephalopathy -continued to have nystagmus, family unaware if it is baseline , mentation normalized, speech clear strongly recommend to abstain from illicit drug use # acute on chronic kidney disease stage 3- likely related to polysubstance abuse -Creatinine trending down but not at baseline -baseline CKD stage 3 -received 2 L IV NS in the ED.? Hold on additional IV fluids -CPK mildly elevated at 02:49 but not consistent with rhabdomyolysis -hold nephrotoxins,encourage po fluids -follow BMP, #RLE swelling -Venous duplex negative # stage IV diabetic ulcer of the right foot s/p right 2nd toe amputation -does not appear acutely infected -wound care consulted # acute osteomyelitis left toe -discharged on 05/01 with PICC line for IV ertapenem -change to renally dosed meropenem while inpatient -dc id consult # chronic leukocytosis -likely related to osteomyelitis, has trended down # [id number] type 2 diabetes -hold glipizide, Invokana -POC glucose, diabetic diet -Humalog on sliding scale # hypertension -reasonably controlled -hold lisinopril in setting of MERLIN # polysubstance abuse -patient adamantly denies substance use but urine tox screen positive for opiates, fentanyl, and cocaine -addiction medicine consult DVT prophylaxis-heparin Full code Patient requires continued inpatient stay for management of acute toxic metabolic encephalopathy,mri pend. Time Spent With Patient Time: Total time managing care of this patient today ____ minutes. Quality Stroke Does the patient have a stroke diagnosis?: No VTE Prior VTE?: No VTE Risk Level:: Medical - moderate - high VTE Device Contraindication: Treatment Not Indicated VTE Drug Contraindication: N/A - Med Ordered
--- NOTE | 2023-05-06 11:32 | PC.NURSE ---
Speech therapy at bedside at this time.
--- NOTE | 2023-05-06 13:09 | MHC.RECOVRN ---
This program writer met with patient after addiction consult received. Pt resting, awake, alert. Mother at bedside. Pt reports no opiate/TAVON use [employer]. Pt reports in the past had used, no recent use. Mother agreeable to waiting in Family Waiting Room for this program writer to obtain complete substance use history. This program writer reviewed role, i.e. to provide pt with comfort medication, as appears is withdrawing and UDS positive for TAVON/Opiates/Fentanyl. Reviewed goal of obtaining substance use hx is not punitive, it is to ensure pt receives appropriate medication to be able to rest and be as comfortable as possible. Pt verbalized understanding. Pt reports no recent substance use. Pt states in the past, more then two years ago, had used 30 illicit pressed opiate pills daily. Pt denies substance use for past 2+ years. Pt reports in the past, had tried Suboxone. Pt declined Suboxone at this time. Pt visible extremely restless, restless legs. Reviewed a small dose of MTD can help. Pt agreeable. Reviewed findings with Provider Catina Cantu whom ordered 10mg MTD q 4hrs. Emeli matos RN aware of findings and order.
--- NOTE | 2023-05-06 13:23 | PM.EVENT ---
Event Note Date of Service: 05/06/23 Event Note: Addiction consult placed for patient--+ UDS fentanyl, cocaine Patient seen by crepe box tender, noted to be restless and uncomfortable Denied any current opioid use to RN, however reported history of treatment for OUD with suboxone At this time declining ongoing treatment for OUD, but accepting of PRN methadone to address withdrwal sx. See crepe box tender note from 05/06/23 for additional details Plan: -methadone 10mg q 4hrs. PRN max 3 doses -will follow up in AM Time Spent With Patient Time: Total time managing care of this patient today ____ minutes.
--- NOTE | 2023-05-06 15:16 | PM.EVENT ---
Event Note Date of Service: 05/06/23 Event Note: pt known to me dressings changed good granulation on debridement site on right foot I placed wet to dry dressings, wrapped foot with Kerlix continue daily wound care Time Spent With Patient Time: Total time managing care of this patient today ____ minutes.
--- NOTE | 2023-05-06 15:37 | MHC.CM.PN ---
Addendum entered by Suri Garcia RN 05/06/23 16:16: PER COVERING HOSPITALIST PT AGREEABLE TO STAY OVERNIGHT FOR TORO REMOVAL W/IR IN AM. 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 ARLEN THEN REPORTS IF PT DOES DRUGS HE DOES THEM ON THE STRE[address] AND PT REPORTS HE IS AROUND OTHER PEOPLE AND SO MAYBE THAT IS HOW. CM STRONGLY ENCOURAGING PT TO STAY AND MAKE THE DECISION CLOSER TO D/C SO HE CAN CONT TX, PT DECLINING AND ARLEN IS ASKING TO SPEAK W/HOSPITALIST, HOSPITALIST CONTACTED VIA [employer] HOWEVER HAS GONE FOR DAY, CM WILL DISCUSS WITH NURSE. H&P NOTED THAT PT HAS PICC LINE IN HOWEVER PT HAD TORO PLACED PRIOR TO RECENT D/C. Original Note: EMR REVIEWED, PT W/ACUTE CVA AND MERLIN, PER h&P LIKELY FROM COCAINE ABUSE, PT HAD BEEN DISCHARGED HOME ON 05/01 W/[facility] AND [facility] FOR IV ERTAPENEM, HOWEVER D/T TOX SCREEN POS FOR OPIATES/FENTANYL AND COCAINE PT WOULD NEED TO FINISH HIS IV ABX AT STR. PT CONT'S TO DENY DRUG USE AND IS NOW SAYING HE WANTS TO LEAVE AMA AND PT'S MOTHER ALSO AT BEDSIDE AND ASKING TO SPEAK W/CM. CM WILL REVISIT PT/MOTHER AT BEDSIDE. PT VERIFIES PCP IS RADHIKA DENG, DENIES RECEIVING COVID VACCINES AND REPORTS HIS MOTHER ARLEN IS HIS HCP, COPY REQUESTED.
[2023-05-07 03:34] VITALS: BP 132/63; PULSE 100; RESP 20; TEMP 36.8; O2SAT 97
[2023-05-07 07:28] VITALS: BP 135/65; PULSE 89; RESP 20; TEMP 37; O2SAT 97
--- NOTE | 2023-05-07 10:14 | MHC.RECOVRN ---
Met with pt in 453 to follow up after receiving methadone yesterday. Pt laying in bed, awake, alert, engages in conversation. Mother at bedside. Pt appears restless and anxious. Pt reports methadone on 05/06 helped with restless legs, is not interested in another dose due to not wanting to become dependent on something. Educated pt and mother on methadone and utilizing medication for withdrawal symptoms. Pt encouraged to notify RN if he would like methadone and that it is available. Denies questions or concerns for t/w.
--- NOTE | 2023-05-07 10:50 | HO.PM.IMPN ---
Subjective Subjective Date of Service: 05/07/23 Interval History: no complaints Physical Exam Vital Signs: Vital Signs: Last Vital Signs Temp 98.6 F 05/07/23 07:28 Pulse 89 05/07/23 07:28 Resp 20 05/07/23 07:28 BP 135/65 05/07/23 07:28 Pulse Ox 97 05/07/23 07:28 O2 Del Method Room Air 05/07/23 07:28 BMI result Body Mass Index 29.9 Const: Other: Constitutional : Awake, alert x3 in no acute distress Neck : Supple Cardiovascular : RRR, no JVP, no lower extremity edema Respiratory : good bilateral air entry,? no crackles, wheezes or rhonchi Gastrointestinal:? soft, Normal bowel sounds, Non tender Skin : Warm, Neurological : Alert & oriented x3, No focal deficit Right foot dressing in place, 2nd toe amputated, see pictures of right foot admission note Objective Data Active Medications Acetaminophen (Acetaminophen 325 Mg Tablet) 650 mg PO Q6H PRN PRN Reason: Pain, Mild (Pain Scale 1-3) Last Admin: 05/06/23 07:48 Dose: 650 mg Documented By: KIM Aspirin (Aspirin Enteric Coated 81 Mg Tablet.Dr) 81 mg PO DAILY [facility] Last Admin: 05/07/23 08:11 Dose: 81 mg Documented By: LÓPEZ Atorvastatin Calcium (Atorvastatin Calcium 40 Mg Tablet) 40 mg PO BEDTIME [facility] Last Admin: 05/06/23 20:10 Dose: 40 mg Documented By: ABEL Benzocaine (Throat Lozenge, Medicated Lozenge) 1 lozenge MUCOUS MEM Q2H PRN PRN Reason: Sore Throat Last Admin: 05/07/23 09:52 Dose: 1 lozenge Documented By: LÓPEZ Dextrose (Dextrose 50 % 25 Gm/50 Ml Syringe) 25 gm IVPUSH Q15M PRN; Protocol PRN Reason: per Hypoglycemia Standing Ord. Docusate Sodium (Docusate Sodium 100 Mg Capsule) 100 mg PO DAILY PRN PRN Reason: Constipation Glucose (Glucose Gel 15 Gm Gel..Gram.) 15 gm PO Q15M PRN; Protocol PRN Reason: per Hypoglycemia Standing Ord. Heparin Sodium (Porcine) (Heparin Sodium,Porcine 5,000 Unit/Ml Vial) 5,000 unit SUBCUT Q12H [facility] Last Admin: 05/07/23 08:12 Dose: 5,000 unit Documented By: LÓPEZ Meropenem 1 gm/ Sodium (Chloride) 100 mls @ 200 mls/hr IV Q12H [facility] Last Infusion: 05/07/23 10:25 Dose: 0 mls/hr Documented By: LÓPEZ Insulin Human Lispro (Insulin Lispro 100 Unit/Ml 3 Ml Vial) 0 unit SUBCUT QIDACHS [facility]; Protocol Last Admin: 05/07/23 08:11 Dose: 2 unit Documented By: LÓPEZ Melatonin (Melatonin 3 Mg Tablet) 6 mg PO BEDTIME PRN PRN Reason: insomnia Methadone HCl (Methadone Hcl 20 Mg/2 Ml Oral.Conc) 10 mg PO Q4H PRN PRN Reason: Opiate Withdrawal Last Admin: 05/06/23 11:11 Dose: 10 mg Documented By: KIM Multivitamins/Vitamin C (Multivitamin Tablet) 1 tab PO DAILY [facility] Last Admin: 05/07/23 08:12 Dose: 1 tab Documented By: LÓPEZ Nicotine Polacrilex (Nicotine Polacrilex 2 Mg Gum) 4 mg BUCCAL Q2H PRN PRN Reason: cravings Last Admin: 05/06/23 11:14 Dose: 4 mg Documented By: KIM Omeprazole (Omeprazole 20 Mg Capsule.Dr) 20 mg PO DAILY@0630 [facility] Last Admin: 05/07/23 05:56 Dose: Not Given Documented By: BRIONNA Non-Admin Reason: Patient Refused Ondansetron HCl (Ondansetron Hcl 4 Mg/2 Ml Vial) 4 mg IVPUSH Q8H PRN PRN Reason: Nausea and Vomiting Oxycodone HCl (Oxycodone Hcl Immed Release 5 Mg Tablet) 5 mg PO BID PRN PRN Reason: severe pain Last Admin: 05/06/23 07:49 Dose: 5 mg Documented By: KIM Polyethylene Glycol (Polyethylene Glycol 3350 17 Gm Powd.Pack) 17 gm PO DAILY PRN PRN Reason: constipation Sodium Chloride (0.9 % Sodium Chloride Flush 3 Ml Syringe) 3 ml IVFLUSH QSHIFT [facility] Last Admin: 05/07/23 08:17 Dose: 3 ml Documented By: HO.PHANLYM Sodium Hypochlorite (Sodium Hypochlorite 0.25% 473 Ml Solution) 1 appl TOPICAL DAILY [facility] Last Admin: 05/07/23 08:17 Dose: 1 appl Documented By: LÓPEZ Labs 05/06/23 05:50 05/07/23 05:34 Labs: Laboratory Results - last 24 hr 05/06/23 05/06/23 05/06/23 11:03 15:57 20:10 Anion Gap Estim Creat Clear Calc Estimated GFR POC Glucose 77 68 160 H Random Glucose Calcium 05/07/23 05/07/23 05:34 07:31 Anion Gap 10 L Estim Creat Clear Calc 45.5 Estimated GFR 31 POC Glucose 156 H Random Glucose 162 H Calcium 8.3 L Microbiology Microbiology Results: Microbiology 05/05/23 17:04 Blood Culture - Preliminary Blood - Venous No growth after 24 hours. 05/05/23 17:04 Blood Culture - Preliminary Blood - Venous No growth after 24 hours. Assessment and Plan (1) Toxic metabolic encephalopathy: Status: Acute (2) MERLIN (acute kidney injury): Status: Acute Plan 42-year-old male with history of hypertension, hyperlipidemia, [id number] type 2 diabetes, CKD stage 3, and polysubstance abuse recently admitted to the hospital for osteomyelitis of the right foot s/p amputation of the right 2nd toe with discharge on 05/01 on IV ertapenem with timmons line in place presneted with ams, acute toxic metabolic encephalopathy and MERLIN. transient speech impairment with jerky movement of head/eyes -head CT showed hypodensity left parietal occipital lobe suspicious for acute ischemic change. -CTA head/neck normal with regard to head and neck.? -MRI brain refused -ASA 325 mg given, continue ASA 81 mg daily -seen by neurologist Dr. Salas he feels patient symptoms are related to cocaine induced toxic encephalopathy acute toxic metabolic encephalopathy -continued to have nystagmus, family unaware if it is baseline , mentation normalized, speech clear strongly recommend to abstain from illicit drug use acute on chronic kidney disease stage 3- likely related to polysubstance abuse -Creatinine trending down but not at baseline -baseline CKD stage 3 -received 2 L IV NS in the ED.? 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 s/p right 2nd toe amputation -does not appear acutely infected -wound care consulted acute osteomyelitis left toe -discharged on 05/01 with timmons for IV ertapenem -change to renally dosed meropenem while inpatient chronic leukocytosis -likely related to osteomyelitis, has trended down epi-iajnwom-grsjwlfvl type 2 diabetes -hold glipizide, Invokana -POC glucose, diabetic diet -Humalog on sliding scale hypertension -reasonably controlled -hold lisinopril in setting of MERLIN polysubstance abuse -patient adamantly denies substance use but urine tox screen positive for opiates, fentanyl, and cocaine -addiction medicine consult DVT prophylaxis-heparin Full code reason for continued hospitalization:needs placement for abx Time Spent With Patient Time: Total time managing care of this patient today ____ minutes. Quality Stroke Does the patient have a stroke diagnosis?: No VTE Prior VTE?: No VTE Risk Level:: Medical - moderate - high VTE Device Contraindication: Treatment Not Indicated VTE Drug Contraindication: N/A - Med Ordered
[2023-05-07 11:00] VITALS: BP 131/60; PULSE 94; RESP 20; TEMP 37.1; O2SAT 98
--- NOTE | 2023-05-07 12:44 | MHC.SLORD ---
Speech Language Pathology Order Status: Per MD, DAT[employer]ETING [employer]GER consult to be cancelled.
--- NOTE | 2023-05-07 14:35 | MHC.CM.PN ---
EMR reviewed and per MD rounds, pt is not willing to go to rehab and is awaiting removal of his timmons line and then will D/C home self-care with family support. CM will continue to follow.
[2023-05-07 15:27] VITALS: BP 136/64; PULSE 96; RESP 20; TEMP 37.2; O2SAT 97
--- NOTE | 2023-05-07 15:37 | PC.NURSE ---
pt HR was high 120s-180s sinus tach on monitor occasionally. on assessment, pt is asymptomatic. MD notified. EKG taken- Normal sinus rhythm.
--- NOTE | 2023-05-07 16:15 | PM.DS ---
DS: Providers Provider Date of Service: 05/07/23 Date of admission: 05/05/23 20:33 Primary care physician: [facility] Consults: 05/05/23 20:37 Consult to Neurology Routine Consulting Provider: Angie Salas Reason for consultation: acute cva 05/05/23 22:16 Addiction Medicine Routine Consulting Provider: Addiction Covering Reason for consultation: polysubstance abuse DS: Diagnosis Discharge Diagnosis (1) Toxic metabolic encephalopathy: Status: Acute (2) MERLIN (acute kidney injury): Status: Acute DS: Summary Hospital Course Hospital Course: from initial hpi: 42-year-old male with history of hypertension, hyperlipidemia, dlg-uzyqkma-wzfyfxtxb type 2 diabetes, CKD stage 3, and polysubstance abuse recently admitted to the hospital for osteomyelitis of the right foot s/p amputation of the right 2nd toe with discharge on 05/01 on IV ertapenem with PICC line in place presented to the ED with his mother after being observed to have lost his balance falling forward hitting his head on the ground.? There was no loss of consciousness.? The fall was shortly before arrival at around 14:00.? The patient is unable to verbalize though makes attempts at speech that is incoherent.? His mother states this is not his baseline.? He is also noted to be making jerking movements with his head in rapid eye movements.? The patient adamantly denies any drug use but urine tox screen is positive for opiates, fentanyl, and cocaine.? On arrival, patient is tachycardic at 114, vitals otherwise within normal limits.? There is a leukocytosis of 14.0.? Normocytic anemia with H/H 7.9/24.9% (H/H on 04/29 8.6/27.9%).? Creatinine 3.51, BUN 36.? Creatinine on discharge 2.24.? Sodium 132, potassium 5.0, chloride 100, CO2 22, glucose 133.? Total CK 249.? X-ray of the right foot is negative for acute fracture dislocation or subluxation without any apparent bony erosive changes, soft tissue gas or swelling.? Head CT shows hyperdensity left parietal occipital lobe suspicious for acute ischemic changes, recommend correlation with MRI brain.? No acute intracranial bleed or mass effect.? CTA of the head/neck ordered with angiogram of the head and neck essentially normal but does show dilatation of the main pulmonary arteries which can be seen the setting of pulmonary artery hypertension, clinically correlate.? There is also emphysematous changes at the lung apices.? In the ED, given 2000 mg IV vancomycin and 2 L IV NS. hospital course: Patient was admitted for acute toxic metabolic encephalopathy, likely due to cocaine induced encephalopathy. Was seen by Neurology felt there was no evidence of acute stroke. Patient empirically continue on aspirin daily. Recommended to avoid all cocaine, illicit opiates. Patient also noted to have acute on chronic kidney injury, CKD 3. Creatinine did improve after IV fluids. For diabetes he was continue insulin. Hypertension lisinopril was held for acute kidney injury, will be restarted on discharge. For stage IV diabetic ulcer of the right foot status post 2nd toe amputation with some residual osteomyelitis patient was being treated at home with IV ertapenem via Dietrich catheter. Unable to return to home IV antibiotics as visiting nurses unwilling to take patient given positive U tox. Patient offered placement to continue treatment, however, patient not interested in placement, requesting to leave against medical advice, patient is where the risk of doing so including incomplete treatment and progression to sepsis and possible . Patient will be given suboptimal care with p.o. Keflex for 2 weeks. Dietrich catheter was removed. Time Spent with Patient Time attestation: Total time managing care of this patient today ____ minutes. Discharge coordination time: Greater than 30 minutes Quality: Safe Use of Opioids Does Pt have an Active Cancer Diagnosis on the Problem List?: No Quality: Stroke Does the patient have a stroke diagnosis?: No Physical Exam Vital Signs: Vital Signs: Last Vital Signs Temp 98.9 F 05/07/23 15:27 Pulse 96 05/07/23 15:27 Resp 20 05/07/23 15:27 BP 136/64 05/07/23 15:27 Pulse Ox 97 05/07/23 15:27 O2 Del Method Room Air 05/07/23 15:27 BMI result Body Mass Index 29.9 Const: Other: Constitutional : Awake, alert x3 in no acute distress Neck : Supple Cardiovascular : RRR, no JVP, no lower extremity edema Respiratory : good bilateral air entry,? no crackles, wheezes or rhonchi Gastrointestinal:? soft, Normal bowel sounds, Non tender Skin : Warm, Neurological : Alert & oriented x3, No focal deficit Right foot dressing in place, 2nd toe amputated, see pictures of right foot admission note DS: Data Data Completed and Pending Labs on day of discharge: Laboratory Results - last 24 hr 05/06/23 05/07/23 05/07/23 20:10 05:34 07:31 Sodium 135 Potassium 4.5 Chloride 105 Carbon Dioxide 25 Anion Gap 10 L BUN 24 H Creatinine 2.32 H Estim Creat Clear Calc 45.5 Estimated GFR 31 POC Glucose 160 H 156 H Random Glucose 162 H Calcium 8.3 L 05/07/23 11:02 Sodium Potassium Chloride Carbon Dioxide Anion Gap BUN Creatinine Estim Creat Clear Calc Estimated GFR POC Glucose 133 H Random Glucose Calcium Preliminary micro results at discharge 05/05/23 17:04 Blood Culture - Preliminary Blood - Venous No growth after 24 hours. 05/05/23 17:04 Blood Culture - Preliminary Blood - Venous No growth after 24 hours. Discharge Plan Discharge Anticipated Discharge Date/Time: 05/07/23 16:10 Patient Disposition: Left Against Medical Advice Discharge Diagnosis: encephalopathy Referrals: [facility] [Primary Care Provider] - 1 Week Discharge Medications: New cephalexin 500 mg capsule 500 mg PO BID Qty: 28 0RF Continued (DME) Dakins solution 1/4 strength 500ml See Rx Instructions .Route .MEDSUPPLY Qty: 1 0RF Rx Instructions: As directed polyethylene glycol 3350 17 gram Powder In Packet 17 g PO DAILY PRN (Reason: constipation) Qty: 30 0RF HySept 0.25 % Solution 1 appl topical DAILY Qty: 30 0RF (DME) FreeStyle Lite Strips Strip Qty: 100 0RF Rx Instructions: Test four times a day or as directed. (DME) blood-glucose meter [FreeStyle Lite Meter] Kit Qty: 1 0RF Rx Instructions: As Directed alcohol swabs Pads, Medicated 1 pad TOPICAL QIDACHS Qty: 100 0RF Rx Instructions: Use four times a day or as directed. (DME) pen needle, diabetic 32 gauge x 1/4 needle Qty: 100 0RF Rx Instructions: Use four times a day or as directed. (DME) lancets [FreeStyle Lancets] 28 gauge misc Qty: 100 0RF Rx Instructions: Test four times a day or as directed. multivitamin Tablet 1 tab PO DAILY Qty: 30 0RF atorvastatin 40 mg tablet 40 mg PO BEDTIME Qty: 30 0RF lisinopril 20 mg Tablet 20 mg PO DAILY Qty: 30 0RF melatonin 5 mg tablet 5 mg PO BEDTIME PRN (Reason: insomnia) Qty: 30 0RF oxycodone 5 mg capsule 5 mg PO BID PRN (Reason: pain) Qty: 8 0RF Rx Instructions: Partial Fill upon patient request. glipizide 10 mg tablet extended release 24hr 10 mg PO DAILY Qty: 30 0RF omeprazole 20 mg capsule,delayed release(DR/EC) 20 mg PO DAILY@0630 Qty: 30 0RF nicotine (polacrilex) 4 mg gum 4 mg PO Q2H PRN (Reason: cravings) Invokana 100 mg tablet 100 mg PO DAILY Discontinued ertapenem 1 gram recon soln 1 g IV DAILY Qty: 35 0RF Rx Instructions: end date 06/05/23 Discharge Orders: Discharge Order (Routine); Ordered 05/07/23 Ordered By: César Geller Diet: Advance to usual diet Activity on Discharge: As tolerated Stand Alone Forms: Patient Portal Discharge page Care Plan Goals: recovery Health Concerns: encephalopathy, polysubstance abuse, om Plan of Treatment: cannot treat optimally as leaving [facility] and not able to give iv abx for OM, will send 2 weeks of keflex, avoid cocain, opiates Assessment: see above
--- NOTE | 2023-05-07 16:42 | PC.NURSE ---
pt stating he wants to leave MD ANGEL at bedside, education given, still insisting on leaving, shanelle removed by IR. tele removed. pt belongings returned.
== END 2023-05-07 16:50 | disposition left against medical advice (07) | DRG 816 ==
LOC: HO.ED 19:05 → HO.EDOVER 20:48 → HO.IMC 23:47
PROVIDERS: Admitting Provider Physician Assistant; Emergency Provider Internal Medicine; PCP Family Medicine; Visit Provider Internal Medicine
DX: T40.5X1A Poisoning by cocaine, accidental (unintentional), initial encounter (principal); G92.8 Other toxic encephalopathy; N17.9 Acute kidney failure, unspecified; M86.172 Other acute osteomyelitis, left ankle and foot; I12.9 Hypertensive chronic kidney disease with stage 1 through stage 4 chronic kidney disease, or unspecified chronic kidney disease; F17.210 Nicotine dependence, cigarettes, uncomplicated; E11.69 Type 2 diabetes mellitus with other specified complication; E11.621 Type 2 diabetes mellitus with foot ulcer; L97.519 Non-pressure chronic ulcer of other part of right foot with unspecified severity; E11.22 Type 2 diabetes mellitus with diabetic chronic kidney disease; F11.21 Opioid dependence, in remission; N18.30 Chronic kidney disease, stage 3 unspecified; F19.10 Other psychoactive substance abuse, uncomplicated; E78.5 Hyperlipidemia, unspecified; Z71.6 Tobacco abuse counseling; Z79.84 Long term (current) use of oral hypoglycemic drugs; Z79.899 Other long term (current) drug therapy
CPT/HCPCS: 36415; 70450; 70496; 70498; 73620; 80048; 80053; 80061; 80307; 82550; 82947; 83605; 85025; 85610; 85652; 87040; 93005; 93971; 97161; 97165; 99222; 99285; J1643; J2185; J3370; Q9967

== ENCOUNTER 2023-05-09 16:23 | Emergency (ER) | payer MEDICAID, SELFPAY ==
[2023-05-09 16:38] VITALS: BP 129/65; BP 133/70; PULSE 101; PULSE 113; RESP 18; TEMP 37.7; O2SAT 97; O2SAT 98; BMI 32.1
[2023-05-09 17:35] VITALS: BP 134/63; PULSE 101; RESP 15; O2SAT 98
--- NOTE | 2023-05-09 17:46 | ED.SEIZURE ---
HPI - Seizure General Chief Complaint: Seizure Stated Complaint: seizure, per ems Time Seen by Provider: 05/09/23 17:45 Source: patient Mode of arrival: EMS Limitations: no limitations History of Present Illness HPI Narrative: Patient diabetic hypertension CKD with osteomyelitis of the right foot status post amputation of right 2nd toe , admitted here on 05/05 left AMA on 05/07/23 comes here as while at home mother noticed patient had a jerking episode lasted for about 3 minutes no frothing no incontinence postictal after episode for about 10 minutes patient does have history of substance abuse denies any use of cocaine or opiates after discharge POC was 108 on arrival no head injury no fever patient is on oral antibiotics Related Data Home Medications Medication Instructions Recorded Confirmed canagliflozin 100 mg tablet 100 mg PO DAILY 05/05/23 (Invokana) nicotine (polacrilex) 4 mg gum 4 mg PO Q2H PRN cravings 05/05/23 05/05/23 Previous Rx's Medication Instructions Recorded polyethylene glycol 3350 17 gram 17 g PO DAILY PRN constipation #30 04/30/23 oral powder packet ea sodium hypochlorite 0.25 % 1 appl topical DAILY #30 mL 04/30/23 solution (HySept) Dakins solution 1/4 strength #1 ea 05/01/23 alcohol swabs 1 pad topical QIDACHS #100 ea 05/01/23 atorvastatin 40 mg tablet 40 mg PO BEDTIME #30 tabs 05/01/23 blood sugar diagnostic (FreeStyle #100 ea 05/01/23 Lite Strips) blood-glucose meter (FreeStyle #1 ea 05/01/23 Lite Meter kit) glipizide 10 mg tablet, extended 10 mg PO DAILY #30 tabs 05/01/23 release 24 hr lancets 28 gauge (FreeStyle #100 ea 05/01/23 Lancets) lisinopril 20 mg tablet 20 mg PO DAILY #30 tabs 05/01/23 melatonin 5 mg tablet 5 mg PO BEDTIME PRN insomnia #30 05/01/23 tabs multivitamin 1 tab PO DAILY #30 tabs 05/01/23 omeprazole 20 mg capsule,delayed 20 mg PO DAILY@0630 #30 caps 05/01/23 release oxycodone 5 mg capsule 5 mg PO BID PRN pain #8 caps 05/01/23 pen needle, diabetic 32 gauge x #100 ea 05/01/2311/06 cephalexin 500 mg capsule 500 mg PO BID #28 caps 05/07/23 Allergies Allergy/AdvReac Type Severity Reaction Status Date / Time No Known Allergies Allergy Verified 11/26/20 14:08 [No Known Allergies*] Review of Systems Review of Systems: Yes all other systems are reviewed and are negative [facility] Past Medical History Medical History Amputation of toe of right foot CKD (chronic kidney disease) stage 3, GFR 30-59 ml/min Diabetes Diabetic ulcer of right foot Foot osteomyelitis, left HTN (hypertension) Hyperglycemia due to type 2 diabetes mellitus Polysubstance abuse Renal failure Sleep apnea Social History Social History Household Members: Family Housing: Apartment Do you presently have visiting nurse or other home services: No Alcohol intake: never Patient Tobacco Use Status: Current everyday Tobacco user Tobacco use type: Cigarette Smoked in Last 30 Days: Yes Use of substances other than those prescribed or required for medical reasons: Yes Substance Use Type: Marijuana Advance Directives: No Advance Directives Information Provided: No service: No Physical Exam Vital Signs: Vital Signs: Last Vital Signs Temp 98.4 F 05/09/23 21:00 Pulse 99 05/09/23 21:00 Resp 16 05/09/23 21:00 BP 112/61 05/09/23 21:00 Pulse Ox 97 05/09/23 21:00 O2 Del Method Room Air 05/09/23 21:00 BMI result Body Mass Index 32.1 Appearance: Alert. Oriented X3. No acute distress. Eyes: PERRLA, No Nystagmus ENT: Pharynx normal. Oral Mucosa moist no tongue bite Neck: Normal inspection. Neck supple. CVS: Normal heart rate and rhythm. Pulses normal. Respiratory: No respiratory distress. Equal air entry bilateral, no wheezing/rales/rhonchi Abdomen: Soft and nontender. Bowel sounds are present, no mass palpable, no CVA tenderness Skin: Skin warm and dry. Normal skin color. Normal skin turgor. Extremities: No lower extremity edema. No calf tenderness right foot status post amputation of the toe healing wound Neuro: Oriented X 3. No motor deficit. No sensory deficit.No cerebellar signs , cranial nerves II-XII intact Medications Administered Discontinued Medications Generic Name Dose Route Start Last Admin Trade Name Denzel PRN Reason Stop Dose Admin Sodium Chloride 1,000 mls @ 999 mls/hr 05/09/23 18:01 05/09/23 19:48 Ns IV 05/09/23 19:01 Infused .Q1H1M ONE Infusion Medical Decision Making Medical Decision Making [facility] Narrative: Patient with questionable seizure/anxiety/substances abuse labs are stable advised to follow with neurologist no focal neuro deficits Differential Diagnosis Epilepsy/substance abuse/hypoglycemia/metabolic encephalopathy Lab Data [facility] Lab Attestation statement: I reviewed the patient's lab results. 05/09/23 19:10 05/09/23 18:17 Labs: Lab Results 05/09/23 05/09/23 05/09/23 Range/Units 17:44 18:17 18:17 WBC (4.8-10.8) X10*3/uL RBC (4.60-5.80) X10*6/uL Hgb (14.0-18.0) g/dl Hct (42.0-52.0) % MCV (80.0-98.0) fL MCH (27.0-33.0) pg MCHC (31.0-36.0) g/dl RDW (11.0-16.0) % Plt Count (160-400) X10*3/uL MPV (9.4-12.4) fL Immature Gran % (Auto) (0.0-0.4) % Neut % (Auto) (45-73) % Lymph % (Auto) (20-40) % Clinton % (Auto) (2-11) % Eos % (Auto) (0-4) % Baso % (Auto) (0-2) % Lymph # (Auto) (1.2-4.9) X10*3/uL Clinton # (Auto) (0.1-1.2) X10*3/uL Eos # (Auto) (0.0-0.4) X10*3/uL Baso # (Auto) (0.0-0.2) X10*3/uL Abs Immat Gran (auto) (0.00-0.03) X10*3/uL Absolute Neuts (auto) (2.0-8.3) x10*3/uL Absolute Nucleated RBC (0.0-0.012) X10*3/uL Nucleated RBC % (auto) (0.0-0.2) /100WBC Smear Tech's Comments Sodium 134 L (135-145) mmol/L Potassium 5.1 (3.3-5.1) mmol/L Chloride 107 (96-108) mmol/L Carbon Dioxide 19 L (22-29) mmol/L Anion Gap 13 (12-20) BUN 27 H (9-16) mg/dL Creatinine 2.73 H (0.5-1.4) mg/dL Estim Creat Clear Calc 42.4 Estimated GFR 25 POC Glucose 108 (60-115) mg/dL Random Glucose 98 (60-115) mg/dL Lactic Acid (0.5-2.0) mmol/L Calcium 8.8 D (8.4-10.2) mg/dL Magnesium 1.7 (1.6-2.6) mg/dL Total Bilirubin 0.2 (0.0-1.0) mg/dL AST 48 H (5-37) U/L ALT 15 (0-40) U/L Alkaline Phosphatase 124 H (39-117) U/L Total Protein 8.5 H (6.5-8.0) g/dL Albumin 2.5 L (3.5-5.0) g/dL Urine Opiates Screen POSITIVE H (Not Detect) Urine Fentanyl Screen POSITIVE H (Not Detect) Ur Barbiturates Screen Not Detected (Not Detect) Ur Phencyclidine Scrn Not Detected (Not Detect) Ur Amphetamines Screen Not Detected (Not Detect) U Benzodiazepines Scrn Not Detected (Not Detect) Urine Cocaine Screen POSITIVE H (Not Detect) U Marijuana (THC) Screen Not Detected (Not Detect) 05/09/23 05/09/23 Range/Units 19:10 19:10 WBC 12.2 H (4.8-10.8) X10*3/uL RBC 2.83 L (4.60-5.80) X10*6/uL Hgb 7.7 L (14.0-18.0) g/dl Hct 24.6 L (42.0-52.0) % MCV 86.9 (80.0-98.0) fL MCH 27.2 (27.0-33.0) pg MCHC 31.3 (31.0-36.0) g/dl RDW 13.2 (11.0-16.0) % Plt Count 190 (160-400) X10*3/uL MPV 11.9 (9.4-12.4) fL Immature Gran % (Auto) 0.9 H (0.0-0.4) % Neut % (Auto) 81.3 H (45-73) % Lymph % (Auto) 12.6 L (20-40) % Clinton % (Auto) 3.6 (2-11) % Eos % (Auto) 1.1 (0-4) % Baso % (Auto) 0.5 (0-2) % Lymph # (Auto) 1.5 (1.2-4.9) X10*3/uL Clinton # (Auto) 0.4 (0.1-1.2) X10*3/uL Eos # (Auto) 0.1 (0.0-0.4) X10*3/uL Baso # (Auto) 0.1 (0.0-0.2) X10*3/uL Abs Immat Gran (auto) 0.11 H (0.00-0.03) X10*3/uL Absolute Neuts (auto) 10.0 H (2.0-8.3) x10*3/uL Absolute Nucleated RBC 0.000 (0.0-0.012) X10*3/uL Nucleated RBC % (auto) 0.0 (0.0-0.2) /100WBC Smear Tech's Comments VERIFIED Sodium (135-145) mmol/L Potassium (3.3-5.1) mmol/L Chloride (96-108) mmol/L Carbon Dioxide (22-29) mmol/L Anion Gap (12-20) BUN (9-16) mg/dL Creatinine (0.5-1.4) mg/dL Estim Creat Clear Calc Estimated GFR POC Glucose (60-115) mg/dL Random Glucose (60-115) mg/dL Lactic Acid 1.8 (0.5-2.0) mmol/L Calcium (8.4-10.2) mg/dL Magnesium (1.6-2.6) mg/dL Total Bilirubin (0.0-1.0) mg/dL AST (5-37) U/L ALT (0-40) U/L Alkaline Phosphatase (39-117) U/L Total Protein (6.5-8.0) g/dL Albumin (3.5-5.0) g/dL Urine Opiates Screen (Not Detect) Urine Fentanyl Screen (Not Detect) Ur Barbiturates Screen (Not Detect) Ur Phencyclidine Scrn (Not Detect) Ur Amphetamines Screen (Not Detect) U Benzodiazepines Scrn (Not Detect) Urine Cocaine Screen (Not Detect) U Marijuana (THC) Screen (Not Detect) Discharge Plan Discharge Clinical Impression: Seizure Patient Disposition: Home, Self-Care Instructions: New-Onset Seizure in Adults (ED) Additional Instructions: Possibly you had a seizure Follow up with neurologist for further management Report to the ER if recurrence of the seizures Prescriptions: No Action (DME) Dakins solution 1/4 strength 500ml See Rx Instructions .Route .MEDSUPPLY Qty: 1 0RF Rx Instructions: As directed polyethylene glycol 3350 17 gram Powder In Packet 17 g PO DAILY PRN (Reason: constipation) Qty: 30 0RF HySept 0.25 % Solution 1 appl topical DAILY Qty: 30 0RF (DME) FreeStyle Lite Strips Strip Qty: 100 0RF Rx Instructions: Test four times a day or as directed. (DME) blood-glucose meter [FreeStyle Lite Meter] Kit Qty: 1 0RF Rx Instructions: As Directed alcohol swabs Pads, Medicated 1 pad TOPICAL QIDACHS Qty: 100 0RF Rx Instructions: Use four times a day or as directed. (DME) pen needle, diabetic 32 gauge x 1/4 needle Qty: 100 0RF Rx Instructions: Use four times a day or as directed. (DME) lancets [FreeStyle Lancets] 28 gauge misc Qty: 100 0RF Rx Instructions: Test four times a day or as directed. multivitamin Tablet 1 tab PO DAILY Qty: 30 0RF atorvastatin 40 mg tablet 40 mg PO BEDTIME Qty: 30 0RF lisinopril 20 mg Tablet 20 mg PO DAILY Qty: 30 0RF melatonin 5 mg tablet 5 mg PO BEDTIME PRN (Reason: insomnia) Qty: 30 0RF oxycodone 5 mg capsule 5 mg PO BID PRN (Reason: pain) Qty: 8 0RF Rx Instructions: Partial Fill upon patient request. glipizide 10 mg tablet extended release 24hr 10 mg PO DAILY Qty: 30 0RF omeprazole 20 mg capsule,delayed release(DR/EC) 20 mg PO DAILY@0630 Qty: 30 0RF nicotine (polacrilex) 4 mg gum 4 mg PO Q2H PRN (Reason: cravings) Invokana 100 mg tablet 100 mg PO DAILY cephalexin 500 mg capsule 500 mg PO BID Qty: 28 0RF Referrals: Angie Salas MD [Physician] - 2 weeks Interventions: ED Discharge Assessment Last Done: 05/09/23 21:00 Discharge Date/Time: 05/09/23 21:05
[2023-05-09 18:02] VITALS: BP 131/70; PULSE 110; RESP 18; O2SAT 96
--- NOTE | 2023-05-09 18:06 | PC.NURSE ---
pt a+o x3. arrived via ems. per mom pt had new onset seizure. he fell to the floor and his eyes were rolling backwards and he became unconscious . mom reports that she got scared and started crying because this never happened before. she also reports that he recently had amputation on his right foot and she relates this episode to the amputation. 20g iv inserted LAC. pt's mom is at his bedside. denies pain, vss,
[2023-05-09 21:00] VITALS: BP 112/61; PULSE 99; RESP 16; TEMP 36.9; O2SAT 97
== END 2023-05-09 21:05 | disposition home or self-care (01) ==
PROVIDERS: Emergency Provider Internal Medicine
DX: R56.9 Unspecified convulsions (principal); R11.2 Nausea with vomiting, unspecified; F17.210 Nicotine dependence, cigarettes, uncomplicated; Z71.6 Tobacco abuse counseling; Z79.899 Other long term (current) drug therapy
CPT/HCPCS: 36415; 80053; 80307; 82947; 83605; 83735; 85025; 87040; 96360; 99284

== ENCOUNTER 2023-05-11 17:28 | Emergency (ER) | payer MEDICAID, SELFPAY ==
--- NOTE | 2023-05-11 18:22 | ED.GENADULT ---
HPI - General Adult General Chief complaint: Seizure Stated complaint: WEAKNESS Time Seen by Provider: 05/11/23 18:05 Source: patient Mode of arrival: ambulatory Limitations: no limitations History of Present Illness HPI narrative: Patient with right foot osteomyelitis status post amputation and debridement discharged on 05/01 was seen here on 05/09 for seizure-like activity patient does have myoclonic spasms in the past urine test were positive for fentanyl and cocaine patient denied the use of it again today patient while walking to the bathroom fell down and had similar seizure like activity/myoclonic jerking with eyes uprolled but no postictal patient remembers everything no tongue bite no incontinence Related Data Home Medications Medication Instructions Recorded Confirmed canagliflozin 100 mg tablet 100 mg PO DAILY 05/05/23 (Invokana) nicotine (polacrilex) 4 mg gum 4 mg PO Q2H PRN cravings 05/05/23 05/05/23 Previous Rx's Medication Instructions Recorded polyethylene glycol 3350 17 gram 17 g PO DAILY PRN constipation #30 04/30/23 oral powder packet ea sodium hypochlorite 0.25 % 1 appl topical DAILY #30 mL 04/30/23 solution (HySept) Dakins solution 1/4 strength #1 ea 05/01/23 alcohol swabs 1 pad topical QIDACHS #100 ea 05/01/23 atorvastatin 40 mg tablet 40 mg PO BEDTIME #30 tabs 05/01/23 blood sugar diagnostic (FreeStyle #100 ea 05/01/23 Lite Strips) blood-glucose meter (FreeStyle #1 ea 05/01/23 Lite Meter kit) glipizide 10 mg tablet, extended 10 mg PO DAILY #30 tabs 05/01/23 release 24 hr lancets 28 gauge (FreeStyle #100 ea 05/01/23 Lancets) lisinopril 20 mg tablet 20 mg PO DAILY #30 tabs 05/01/23 melatonin 5 mg tablet 5 mg PO BEDTIME PRN insomnia #30 05/01/23 tabs multivitamin 1 tab PO DAILY #30 tabs 05/01/23 omeprazole 20 mg capsule,delayed 20 mg PO DAILY@0630 #30 caps 05/01/23 release oxycodone 5 mg capsule 5 mg PO BID PRN pain #8 caps 05/01/23 pen needle, diabetic 32 gauge x #100 ea 06/29/23 1/4 cephalexin 500 mg capsule 500 mg PO BID #28 caps 05/07/23 Allergies Allergy/AdvReac Type Severity Reaction Status Date / Time No Known Allergies Allergy Verified 05/11/23 18:29 [No Known Allergies*] Review of Systems Review of Systems: Yes all other systems are reviewed and are negative [facility] Past Medical History Medical History Amputation of toe of right foot CKD (chronic kidney disease) stage 3, GFR 30-59 ml/min Diabetes Diabetic ulcer of right foot Foot osteomyelitis, left HTN (hypertension) Hyperglycemia due to type 2 diabetes mellitus Polysubstance abuse Renal failure Seizure Sleep apnea Social History Social History Household Members: Family Housing: Apartment Do you presently have visiting nurse or other home services: No Alcohol intake: never Patient Tobacco Use Status: Current everyday Tobacco user Tobacco use type: Cigarette Smoked in Last 30 Days: Yes Use of substances other than those prescribed or required for medical reasons: No Substance Use Type: Marijuana Advance Directives: No Advance Directives Information Provided: No service: No Physical Exam ED Vital Signs: Vital Signs - 24 hr 05/11/23 18:29 05/11/23 18:45 05/11/23 19:24 Temperature 99.5 F 99.5 F Pulse Rate 99 97 91 Respiratory Rate 15 12 15 Blood Pressure 125/65 132/70 120/64 Pulse Oximetry 98 98 Oxygen Delivery Method Room Air Room Air 05/11/23 20:01 Temperature 98.7 F Pulse Rate 96 Respiratory Rate 17 Blood Pressure 126/76 Pulse Oximetry 99 Oxygen Delivery Method Room Air BMI result Body Mass Index 29.3 Appearance: Alert. Oriented X3. No acute distress. Eyes: PERRLA, + Nystagmus ENT: Pharynx normal. Oral Mucosa moist Neck: Normal inspection. Neck supple. CVS: Normal heart rate and rhythm. Pulses normal. Respiratory: No respiratory distress. Equal air entry bilateral, no wheezing/rales/rhonchi Abdomen: Soft and nontender. Bowel sounds are present, no mass palpable, no CVA tenderness Skin: Skin warm and dry. Normal skin color. Normal skin turgor. Extremities: No lower extremity edema. No calf tenderness wound with dressing on the right foot Neuro: Oriented X 3. No motor deficit. No sensory deficit.No cerebellar signs , cranial nerves II-XII intact Medications Administered Discontinued Medications Generic Name Dose Route Start Last Admin Trade Name Denzel PRN Reason Stop Dose Admin Cephalexin HCl 500 mg 05/11/23 21:12 05/11/23 21:31 Cephalexin 500 Mg Capsule PO 05/11/23 21:13 Not Given ONCE ONE Levetiracetam 1,000 mg 05/11/23 18:34 05/11/23 18:41 Levetiracetam 1,000 Mg Tablet PO 05/11/23 18:35 1,000 mg ONCE ONE Administration Lorazepam 2 mg 05/11/23 18:34 05/11/23 18:41 Lorazepam 1 Mg Tablet PO 05/11/23 18:35 2 mg ONCE ONE Administration Medical Decision Making Medical Decision Making [facility] Narrative: Patient likely with myoclonic seizures question of epilepsy. Patient refused to Stay in the hospital sent home with mother advised to follow with neurology Lab Data [facility] Lab Attestation statement: I reviewed the patient's lab results. Labs: Lab Results 05/11/23 05/11/23 Range/Units 19:24 20:05 POC Glucose 197 H (60-115) mg/dL Urine Opiates Screen POSITIVE H (Not Detect) Urine Fentanyl Screen POSITIVE H (Not Detect) Ur Barbiturates Screen Not Detected (Not Detect) Ur Phencyclidine Scrn Not Detected (Not Detect) Ur Amphetamines Screen Not Detected (Not Detect) U Benzodiazepines Scrn Not Detected (Not Detect) Urine Cocaine Screen POSITIVE H (Not Detect) U Marijuana (THC) Screen Not Detected (Not Detect) Discharge Plan Discharge Clinical Impression: Diabetic ulcer of right foot, Polysubstance abuse, Myoclonic disorder Patient Disposition: Home, Self-Care Instructions: Diabetic Foot Ulcers (ED), Polysubstance Abuse (ED), Restless Legs Syndrome (ED) Additional Instructions: Take medication as prescribed and follow-up with your PCP Prescriptions: No Action (DME) Dakins solution 1/4 strength 500ml See Rx Instructions .Route .MEDSUPPLY Qty: 1 0RF Rx Instructions: As directed polyethylene glycol 3350 17 gram Powder In Packet 17 g PO DAILY PRN (Reason: constipation) Qty: 30 0RF HySept 0.25 % Solution 1 appl topical DAILY Qty: 30 0RF (DME) FreeStyle Lite Strips Strip Qty: 100 0RF Rx Instructions: Test four times a day or as directed. (DME) blood-glucose meter [FreeStyle Lite Meter] Kit Qty: 1 0RF Rx Instructions: As Directed alcohol swabs Pads, Medicated 1 pad TOPICAL QIDACHS Qty: 100 0RF Rx Instructions: Use four times a day or as directed. (DME) pen needle, diabetic 32 gauge x 1/4 needle Qty: 100 0RF Rx Instructions: Use four times a day or as directed. (DME) lancets [FreeStyle Lancets] 28 gauge misc Qty: 100 0RF Rx Instructions: Test four times a day or as directed. multivitamin Tablet 1 tab PO DAILY Qty: 30 0RF atorvastatin 40 mg tablet 40 mg PO BEDTIME Qty: 30 0RF lisinopril 20 mg Tablet 20 mg PO DAILY Qty: 30 0RF melatonin 5 mg tablet 5 mg PO BEDTIME PRN (Reason: insomnia) Qty: 30 0RF oxycodone 5 mg capsule 5 mg PO BID PRN (Reason: pain) Qty: 8 0RF Rx Instructions: Partial Fill upon patient request. glipizide 10 mg tablet extended release 24hr 10 mg PO DAILY Qty: 30 0RF omeprazole 20 mg capsule,delayed release(DR/EC) 20 mg PO DAILY@0630 Qty: 30 0RF nicotine (polacrilex) 4 mg gum 4 mg PO Q2H PRN (Reason: cravings) Invokana 100 mg tablet 100 mg PO DAILY cephalexin 500 mg capsule 500 mg PO BID Qty: 28 0RF Interventions: ED Discharge Assessment Last Done: 05/11/23 21:30 Discharge Date/Time: 05/11/23 21:31
[2023-05-11 18:29] VITALS: BP 125/65; PULSE 99; RESP 15; TEMP 37.5; BMI 29.3
[2023-05-11 18:45] VITALS: BP 132/70; PULSE 97; RESP 12; TEMP 37.5; O2SAT 98
--- NOTE | 2023-05-11 18:50 | PC.NURSE ---
seizure precautions in place with padded rails applied. vss. given po meds per mar. no seizure activity. no focal neuro defecits noted. clear coherent speech with full ROM and strength. conversational with family member. aox4. no pain
[2023-05-11 19:24] VITALS: BP 120/64; PULSE 91; RESP 15; O2SAT 98
--- NOTE | 2023-05-11 19:25 | PC.NURSE ---
Assumed care of patient at 1900. Patient returned from CT scan alert and oriented. Family member at bedside. POC 197. Pt requested ice. Seizure pads in place, nuclear monitoring technician in place. Will continue to follow plan of care
[2023-05-11 20:01] VITALS: BP 126/76; PULSE 96; RESP 17; TEMP 37.1; O2SAT 99
== END 2023-05-11 21:31 | disposition home or self-care (01) ==
PROVIDERS: Emergency Provider Internal Medicine
DX: E11.621 Type 2 diabetes mellitus with foot ulcer (principal); R56.9 Unspecified convulsions; E11.22 Type 2 diabetes mellitus with diabetic chronic kidney disease; I12.9 Hypertensive chronic kidney disease with stage 1 through stage 4 chronic kidney disease, or unspecified chronic kidney disease; N18.30 Chronic kidney disease, stage 3 unspecified; F17.210 Nicotine dependence, cigarettes, uncomplicated; Z71.6 Tobacco abuse counseling; F11.10 Opioid abuse, uncomplicated; F14.10 Cocaine abuse, uncomplicated; Z79.4 Long term (current) use of insulin; Z79.899 Other long term (current) drug therapy
CPT/HCPCS: 70450; 80307; 82947; 99284

== ENCOUNTER 2023-08-06 01:26 | Emergency (ER) | payer MEDICAID, SELFPAY ==
[2023-08-06 01:30] VITALS: BP 156/75; PULSE 103; RESP 18; TEMP 37.6; O2SAT 98; BMI 30.5
[2023-08-06 01:47] LABS: Basophils Absolute Auto 0.1 X10*3/uL (0.0-0.2); Basophils Percent Auto 0.4 % (0-2); Eosinophils Absolute Auto 0.3 X10*3/uL (0.0-0.4); Eosinophils Percent Auto 1.8 % (0-4); Hematocrit 38.7 % (42.0-52.0); Hemoglobin 12.2 g/dl (14.0-18.0); Imm Gran Abs Auto 0.05 X10*3/uL (0.00-0.03); Imm Gran Pct Auto 0.4 % (0.0-0.4); Lymphocytes Absolute Auto 4.1 X10*3/uL (1.2-4.9); Lymphocytes Percent Auto 30.5 % (20-40); MANUAL DIFF FLAG NO; Mean Corpuscular HGB Conc 31.5 g/dl (31.0-36.0); Mean Corpuscular Hemoglobin 26.7 pg (27.0-33.0); Mean Corpuscular Volume 84.7 fL (80.0-98.0); Mean Platelet Volume 10.7 fL (9.4-12.4); Monocytes Absolute Auto 0.7 X10*3/uL (0.1-1.2); Monocytes Percent Auto 5.3 % (2-11); Neutrophils Absolute Auto 8.4 x10*3/uL (2.0-8.3); Neutrophils Percent Auto 61.6 % (45-73); Platelet Count 257 X10*3/uL (160-400); Red Blood Count 4.57 X10*6/uL (4.60-5.80); Red Cell Distribution Width 12.8 % (11.0-16.0); White Blood Count 13.6 X10*3/uL (4.8-10.8)
[2023-08-06 02:09] LABS: Alanine Aminotransferase 13 U/L (0-40); Albumin Level 2.4 g/dL (3.5-5.0); Alkaline Phosphatase 146 U/L (39-117); Anion Gap 11 (12-20); Aspartate Amino Transferase 30 U/L (5-37); Bilirubin Total 0.2 mg/dL (0.0-1.0); Blood Urea Nitrogen 20 mg/dL (9-16); Calcium 8.9 mg/dL (8.4-10.2); Carbon Dioxide 25 mmol/L (22-29); Chloride 102 mmol/L (96-108); Creatinine Clr Calc Pharmacy 52.1; Estimated Glomerular Filt Rate 36; Glucose Random 140 mg/dL (60-115); Potassium 3.5 mmol/L (3.3-5.1); Sodium 134 mmol/L (135-145); Total Protein 6.6 g/dL (6.5-8.0)
--- NOTE | 2023-08-06 03:11 | PC.NURSE ---
Pt presents to ED for eval of a wound. Pt has a BKA of the left leg, reported he has had stitches in the wound for 2 months. He has attempted to get them removed twice but became sick both times. Pt reported there is redness and puss coming from the wound site. Pt reporting 7.5/10 pain. P is A&Ox4, GCS 15, with warm, dry skin. Pt is sitting in a wheelchair at the bedside, waiting to be seen by ED provider at this time.
--- NOTE | 2023-08-06 05:01 | ED_ITS ---
HPI - Wound/Laceration General Chief Complaint: Wound/Laceration Stated Complaint: amputee, stiches need removal Time Seen by Provider: 08/06/23 04:45 Source: patient Mode of arrival: wheelchair Limitations: no limitations History of Present Illness HPI narrative: Patient comes to the emergency room requesting to have his stitches removed. Patient states that he had a BKA at [facility] of his right leg. Patient was supposed to have taking his stitches of almost 3 weeks ago. However, patient had influenza and his follow-up visit got rescheduled. Then, patient was not able to make it to his 2nd appointment to have the stitches removed. Patient states he has no pain, no fever chills. Patient states that he saw scan yellowish drainage from 1 of the gisell. Related Data Home Medications Medication Instructions Recorded Confirmed canagliflozin 100 mg tablet 100 mg PO DAILY 05/05/23 (Invokana) nicotine (polacrilex) 4 mg gum 4 mg PO Q2H PRN cravings 05/05/23 05/05/23 Previous Rx's Medication Instructions Recorded polyethylene glycol 3350 17 gram 17 g PO DAILY PRN constipation #30 04/30/23 oral powder packet ea sodium hypochlorite 0.25 % 1 appl topical DAILY #30 mL 04/30/23 solution (HySept) Dakins solution 1/4 strength #1 ea 05/01/23 alcohol swabs 1 pad topical QIDACHS #100 ea 05/01/23 atorvastatin 40 mg tablet 40 mg PO BEDTIME #30 tabs 05/01/23 blood sugar diagnostic (FreeStyle #100 ea 05/01/23 Lite Strips) blood-glucose meter (FreeStyle #1 ea 05/01/23 Lite Meter kit) glipizide 10 mg tablet, extended 10 mg PO DAILY #30 tabs 05/01/23 release 24 hr lancets 28 gauge (FreeStyle #100 ea 05/01/23 Lancets) lisinopril 20 mg tablet 20 mg PO DAILY #30 tabs 05/01/23 melatonin 5 mg tablet 5 mg PO BEDTIME PRN insomnia #30 05/01/23 tabs multivitamin 1 tab PO DAILY #30 tabs 05/01/23 omeprazole 20 mg capsule,delayed 20 mg PO DAILY@0630 #30 caps 05/01/23 release oxycodone 5 mg capsule 5 mg PO BID PRN pain #8 caps 05/01/23 pen needle, diabetic 32 gauge x #100 ea 05/01/2311/06 cephalexin 500 mg capsule 500 mg PO BID #28 caps 05/07/23 Allergies Allergy/AdvReac Type Severity Reaction Status Date / Time No Known Allergies Allergy Verified 05/11/23 18:29 [No Known Allergies*] Review of Systems 2 Review of Systems: Constitutional : No Weight loss, No Fever, No Chills, No Night Sweats, No Fatigue, No Malaise ENT/Mouth : No Hearing loss, No Ear Pain, No Nasal Congestion, No Sinus Pain, No Hoarseness, No sore throat, No Rhinorrhea, No Swallowing Difficulty Eyes: No Eye Pain, No Swelling, No Redness, No Foreign Body, No Discharge, No Vision Changes Cardiovascular : No Chest Pain, No SOB, No Dyspnea on Exertion, No Orthopnea, No Edema, No Palpitations Respiratory : No Cough, No Sputum, No Wheezing, No Smoke Exposure, No Dyspnea Gastrointestinal : No Nausea, No Vomiting, No Diarrhea, No Constipation, No abdominal Pain, No Hematochezia, No Melena Genitourinary : no irregular bleeding, No Dysuria, No Urinary Frequency, No Hematuria, No Urinary Incontinence, No Urgency, No Flank Pain, No Urinary Flow Changes, No Hesitancy Musculoskeletal : No joint pain, No Myalgias, No Joint Swelling Skin : Requesting have his stitches removed. Three weeks overdue Neuro : No Weakness, No Numbness, No Paresthesias, No Loss of Consciousness, No Dizziness, No Headache Psych : No Anxiety/Panic, No Depression, No SI/HI/AH/VH, No Social Issues, Heme/Lymph: No Bruising, No Bleeding,No Lymphadenopathy Endocrine : No Polyuria, No Polydipsia, No Temperature Intolerance [facility] Past Medical History Medical History Seizure Polysubstance abuse CKD (chronic kidney disease) stage 3, GFR 30-59 ml/min Foot osteomyelitis, left Amputation of toe of right foot Diabetic ulcer of right foot Hyperglycemia due to type 2 diabetes mellitus Renal failure Sleep apnea Diabetes HTN (hypertension) Surgical History History of surgical procedure (~04/24/23) Social History Social History Household Members: Family Housing: Apartment Do you presently have visiting nurse or other home services: No Alcohol intake: never Patient Tobacco Use Status: Current everyday Tobacco user Tobacco use type: Cigarette Smoked in Last 30 Days: Yes Use of substances other than those prescribed or required for medical reasons: Yes Substance Use Type: Crack/Cocaine and Heroin Substance Use Frequency: Occasionally Advance Directives: No Advance Directives Information Provided: No service: No Physical Exam 2 Vital Signs: Vital Signs: Last Vital Signs Temp 99.6 F 08/06/23 01:30 Pulse 103 H 08/06/23 01:30 Resp 18 08/06/23 01:30 BP 156/75 H 08/06/23 01:30 Pulse Ox 98 08/06/23 01:30 O2 Del Method Room Air 08/06/23 01:30 BMI result Body Mass Index 30.5 Const: Other: Appearance: Alert. Oriented X3. No acute distress. Eyes: Pupils equal, round and reactive to light. ENT: Pharynx normal. Neck: Normal inspection. Neck supple. No lymph nodes noted. No crepitus CVS: Normal heart rate and rhythm. Pulses normal. Normal S1 and S2 Respiratory: No respiratory distress. Breath sounds normal. No Wheezing. No rales Abdomen: Soft and nontender. No rigidity. No distention. Skin: Skin warm and dry. Normal skin color. Normal skin turgor. Extremities: No lower extremity edema. BKA on the right, scan at the incision site looks healthy, healing well, ready to have the stitches removed. No cellulitis or purulence Neuro: Oriented X 3. No motor deficit. No sensory deficit. Moving all extremities. No slurred speech. CN 2 through 12 grossly intact Psych: calm, cooperative, normal affect Medical Decision Making Medical Decision Making MDM Narrative: -of patient's stitches were removed. -patient's labs are at baseline, no fever chills, no signs of infection. Lab Data [facility] Lab Attestation statement: I reviewed the patient's lab results. 08/06/23 01:42 08/06/23 01:42 Labs: Lab Results 08/06/23 Range/Units 01:42 WBC 13.6 H (4.8-10.8) X10*3/uL RBC 4.57 L D (4.60-5.80) X10*6/uL Hgb 12.2 L D (14.0-18.0) g/dl Hct 38.7 L D (42.0-52.0) % MCV 84.7 (80.0-98.0) fL MCH 26.7 L (27.0-33.0) pg MCHC 31.5 (31.0-36.0) g/dl RDW 12.8 (11.0-16.0) % Plt Count 257 D (160-400) X10*3/uL MPV 10.7 (9.4-12.4) fL Immature Gran % (Auto) 0.4 (0.0-0.4) % Neut % (Auto) 61.6 (45-73) % Lymph % (Auto) 30.5 (20-40) % [place] % (Auto) 5.3 (2-11) % Eos % (Auto) 1.8 (0-4) % Baso % (Auto) 0.4 (0-2) % Lymph # (Auto) 4.1 (1.2-4.9) X10*3/uL [place] # (Auto) 0.7 (0.1-1.2) X10*3/uL Eos # (Auto) 0.3 (0.0-0.4) X10*3/uL Baso # (Auto) 0.1 (0.0-0.2) X10*3/uL Abs Immat Gran (auto) 0.05 H (0.00-0.03) X10*3/uL Absolute Neuts (auto) 8.4 H (2.0-8.3) x10*3/uL Absolute Nucleated RBC 0.000 (0.0-0.012) X10*3/uL Nucleated RBC % (auto) 0.0 (0.0-0.2) /100WBC Sodium 134 L (135-145) mmol/L Potassium 3.5 D (3.3-5.1) mmol/L Chloride 102 (96-108) mmol/L Carbon Dioxide 25 (22-29) mmol/L Anion Gap 11 L (12-20) BUN 20 H (9-16) mg/dL Creatinine 2.02 H (0.5-1.4) mg/dL Estim Creat Clear Calc 52.1 Estimated GFR 36 Random Glucose 140 H (60-115) mg/dL Calcium 8.9 (8.4-10.2) mg/dL Total Bilirubin 0.2 (0.0-1.0) mg/dL AST 30 (5-37) U/L ALT 13 (0-40) U/L Alkaline Phosphatase 146 H (39-117) U/L Total Protein 6.6 (6.5-8.0) g/dL Albumin 2.4 L (3.5-5.0) g/dL Discharge Plan Discharge Clinical Impression: Removal of staple Patient Disposition: Home, Self-Care Instructions: Staple Care (ED) Additional Instructions: Please follow-up with your primary care physician tomorrow. If you have any worsening or new symptoms, please return to the emergency room or call 911 Prescriptions: No Action (DME) Dakins solution 1/4 strength 500ml See Rx Instructions .Route .MEDSUPPLY Qty: 1 0RF Rx Instructions: As directed polyethylene glycol 3350 17 gram Powder In Packet 17 g PO DAILY PRN (Reason: constipation) Qty: 30 0RF HySept 0.25 % Solution 1 appl topical DAILY Qty: 30 0RF (DME) FreeStyle Lite Strips Strip Qty: 100 0RF Rx Instructions: Test four times a day or as directed. (DME) blood-glucose meter [FreeStyle Lite Meter] Kit Qty: 1 0RF Rx Instructions: As Directed alcohol swabs Pads, Medicated 1 pad TOPICAL QIDACHS Qty: 100 0RF Rx Instructions: Use four times a day or as directed. (DME) pen needle, diabetic 32 gauge x 1/4 needle Qty: 100 0RF Rx Instructions: Use four times a day or as directed. (DME) lancets [FreeStyle Lancets] 28 gauge misc Qty: 100 0RF Rx Instructions: Test four times a day or as directed. multivitamin Tablet 1 tab PO DAILY Qty: 30 0RF atorvastatin 40 mg tablet 40 mg PO BEDTIME Qty: 30 0RF lisinopril 20 mg Tablet 20 mg PO DAILY Qty: 30 0RF melatonin 5 mg tablet 5 mg PO BEDTIME PRN (Reason: insomnia) Qty: 30 0RF oxycodone 5 mg capsule 5 mg PO BID PRN (Reason: pain) Qty: 8 0RF Rx Instructions: Partial Fill upon patient request. glipizide 10 mg tablet extended release 24hr 10 mg PO DAILY Qty: 30 0RF omeprazole 20 mg capsule,delayed release(DR/EC) 20 mg PO DAILY@0630 Qty: 30 0RF nicotine (polacrilex) 4 mg gum 4 mg PO Q2H PRN (Reason: cravings) Invokana 100 mg tablet 100 mg PO DAILY cephalexin 500 mg capsule 500 mg PO BID Qty: 28 0RF
== END 2023-08-06 05:32 | disposition home or self-care (01) ==
PROVIDERS: Emergency Provider Emergency Medicine
DX: Z48.02 Encounter for removal of sutures (principal); Z79.899 Other long term (current) drug therapy
CPT/HCPCS: 36415; 80053; 85025; 99283; 99284

== ENCOUNTER 2024-08-29 12:44 | Inpatient (IN) | payer MEDICAID, SELFPAY ==
[2024-08-29] VITALS (8 sets, daily range): BP systolic 106–144; BP diastolic 29–62; PULSE 106–108; RESP 15–30; TEMP 36.7–37.3; O2SAT 93–100; BMI 38.5; BMI 39.8
--- NOTE | ~2024-08-29 | IR_ITS ---
CLINICAL HISTORY: Patient requires dialysis. The patient presents to interventional radiology for placement of a non-tunneled central venous catheter for hemodialysis. PROCEDURES: 1. Real-time ultrasound-guided access into the right internal jugular vein after documentation of selected vessel patency, and permanent imaging storing in the patient record. 2. Placement of a 12.0 fr 24 cm non-tunneled, dual-lumen hemodialysis catheter. Clinician: Gurjit Palomo PA-C MEDICATIONS: -Lidocaine 1% 10 mL SQ. -For additional details, please see nursing flowsheet. COMPLICATIONS: None. ESTIMATED BLOOD LOSS: <5 ml SPECIMENS: None FLUOROSCOPY TIME: 0.6 min PROCEDURE NOTE: The procedure, risks, benefits, and alternatives were carefully explained to patient, and written informed consent was obtained. The patient was placed supine on the fluoroscopy table. A timeout was performed. The right neck and chest was prepped and draped in usual sterile fashion. Local anesthesia was administered to the access site with lidocaine. Under ultrasound guidance, the right internal jugular vein was accessed with a 4 Fr micropuncture set. A 0.035 in wire was advanced into the IVC. The tract in the vein was serially dilated. Over the wire, a 12.0 fr 24 non-tunneled, dual-lumen hemodialysis catheter was advanced, with the tip located at the cavoatrial junction. The wire was removed. The catheter was tested, flushed, and sutured to the skin. A permanent fluoroscopic image of the chest was saved to PACS. The catheter ports were packed with heparin per routine protocol. The patient was stable after the procedure and was transferred to the medical floor. There were no immediate complications. FINDINGS: 1. Patent right internal jugular vein. 2. Placement of a non-tunneled, dual-lumen hemodialysis catheter as above. 3. Catheter flushes and aspirates very well with a 10 mL syringe. No pneumothorax. IR/IR cvc insert non tunnel IMPRESSION: Placement of a non-tunneled hemodialysis catheter in the right internal jugular vein. PLAN: -The catheter may be used immediately. This procedure was performed by Gurjit Palomo PA-C, and directly supervised by Dr. Morrell. Electronically signed by: Michael Morrell MD 09/16/2024 01:30 PM [facility] - [place], [place]
--- NOTE | ~2024-08-29 | XR_ITS ---
EXAMINATION: XR ABDOMEN KUB CLINICAL INDICATION: Constipation COMPARISON: None available. TECHNIQUE: AP view of the abdomen. FINDINGS: Prominent fecal loading of the ascending colon greatest along its proximal segment measuring up to 10.8 cm. There is air-filled dilatation of the remaining colon measuring up to 8.4 cm. Osseous structures are intact. Soft tissues are unremarkable. XR/XR KUB IMPRESSION: 1. Prominent fecal loading of the ascending colon greatest along its proximal segment measuring up to 10.8 cm. 2. There is air-filled dilatation of the remaining colon measuring up to 8.4 cm. Electronically signed by: Angeles Galeas MD 08/29/2024 01:41 PM EDT RP
--- NOTE | ~2024-08-29 | XR_ITS ---
EXAMINATION: XR CHEST CLINICAL INFORMATION: Cough COMPARISON: Chest radiograph from 11/26/2020 TECHNIQUE: Frontal view of the chest was obtained. FINDINGS: Bronchial thickening suggesting infectious/inflammatory etiology. Elevation right hemidiaphragm. Left basilar atelectasis. No pneumothorax. Trachea is midline. Cardiac mediastinal silhouette is not enlarged. No large pleural effusion. Osseous structures are intact. Soft tissues are unremarkable. XR/XR chest 1V IMPRESSION: 1. Bronchial thickening suggesting infectious/inflammatory etiology. 2. Elevation right hemidiaphragm. 3. Left basilar atelectasis. Electronically signed by: Angeles Galeas MD 08/29/2024 03:07 PM EDT
--- NOTE | ~2024-08-29 | IR_ITS ---
CLINICAL HISTORY: End-stage renal disease. The patient presents to interventional radiology for placement of a tunneled central venous catheter for hemodialysis. PROCEDURES: 1. Real-time ultrasound-guided access into the right internal jugular vein after documentation of selected vessel patency, and permanent imaging storing in the patient record. 2. Placement of a 14.5 fr 23 cm tunneled, dual-lumen hemodialysis catheter. Clinician: Gurjit Palomo PA-C MEDICATIONS: -Fentanyl 50 mcg, Lidocaine 1% 10 mL SQ. -Antibiotics: Ancef -For additional details, please see nursing flowsheet. COMPLICATIONS: None. ESTIMATED BLOOD LOSS: <5 ml SPECIMENS: None FLUOROSCOPY TIME: 0.8 min PROCEDURE NOTE: The procedure, risks, benefits, and alternatives were carefully explained to patient, and written informed consent was obtained. The patient was placed supine on the fluoroscopy table. A timeout was performed. The right neck and chest was prepped and draped in usual sterile fashion. Local anesthesia was administered to the access site with lidocaine. Under ultrasound guidance, the right internal jugular vein was accessed with a 5 Fr micropuncture set. A 0.035 in wire was advanced to the IVC to maintain access during the tunneling process. Next, subcutaneous lidocaine was administered to the chest. Using blunt dissection, a subcutaneous tunnel was created that connects from the upper chest to the venotomy site. The dialysis catheter was pulled through the tunnel. The tract in the vein was dilated and a peel-away sheath was advanced over the wire. The catheter was advanced through the sheath, which was subsequently peeled away. The catheter was tested, flushed, and sutured to the skin with its tip in the high right atrium. A permanent fluoroscopic image of the chest was saved to PACS. The catheter ports were packed with heparin per routine protocol. The existing right neck Scott catheter was removed. FINDINGS: 1. Patent right internal jugular vein. 2. Placement of a tunneled, dual-lumen hemodialysis catheter as above. 3. Catheter flushes and aspirates very well with a 10 mL syringe. No pneumothorax. IR/IR cvc insert central tunnel IMPRESSION: Placement of a tunneled hemodialysis catheter in the right internal jugular vein. PLAN: -The catheter may be used immediately. This procedure was performed by Gurjit Palomo PA-C, and directly supervised by Dr. Mina. Electronically signed by: Graham Shah MD 09/21/2024 04:08 PM [facility]
--- NOTE | ~2024-08-29 | IR_ITS ---
CLINICAL HISTORY: Patient requires dialysis. The patient presents to interventional radiology for placement of a non-tunneled central venous catheter for hemodialysis. PROCEDURES: 1. Real-time ultrasound-guided access into the right internal jugular vein after documentation of selected vessel patency, and permanent imaging storing in the patient record. 2. Placement of a 12.0 fr 24 cm non-tunneled, dual-lumen hemodialysis catheter. Clinician: Gurjit Palomo PA-C MEDICATIONS: -Lidocaine 1% 10 mL SQ. -For additional details, please see nursing flowsheet. COMPLICATIONS: None. ESTIMATED BLOOD LOSS: <5 ml SPECIMENS: None FLUOROSCOPY TIME: 0.6 min PROCEDURE NOTE: The procedure, risks, benefits, and alternatives were carefully explained to patient, and written informed consent was obtained. The patient was placed supine on the fluoroscopy table. A timeout was performed. The right neck and chest was prepped and draped in usual sterile fashion. Local anesthesia was administered to the access site with lidocaine. Under ultrasound guidance, the right internal jugular vein was accessed with a 4 Fr micropuncture set. A 0.035 in wire was advanced into the IVC. The tract in the vein was serially dilated. Over the wire, a 12.0 fr 24 non-tunneled, dual-lumen hemodialysis catheter was advanced, with the tip located at the cavoatrial junction. The wire was removed. The catheter was tested, flushed, and sutured to the skin. A permanent fluoroscopic image of the chest was saved to PACS. The catheter ports were packed with heparin per routine protocol. The patient was stable after the procedure and was transferred to the medical floor. There were no immediate complications. FINDINGS: 1. Patent right internal jugular vein. 2. Placement of a non-tunneled, dual-lumen hemodialysis catheter as above. 3. Catheter flushes and aspirates very well with a 10 mL syringe. No pneumothorax. IR/IR us guide venous access IMPRESSION: Placement of a non-tunneled hemodialysis catheter in the right internal jugular vein. PLAN: -The catheter may be used immediately. This procedure was performed by Gurjit Palomo PA-C, and directly supervised by Dr. Morrell. Electronically signed by: Michael Morrell MD 09/16/2024 01:30 PM [facility] [place]
--- NOTE | ~2024-08-29 | CT_ITS ---
EXAMINATION: CT ABDOMEN AND PELVIS WITHOUT CONTRAST CLINICAL INFORMATION: Hydronephrosis and marked COMPARISON: Renal ultrasound June 23, 2019 TECHNIQUE: Multidetector volumetric imaging was performed from the superior aspect of the liver through the pubic symphysis. Sagittal and coronal reformatted images were obtained on the technologist's workstation. This CT examination was performed using dose optimization techniques as appropriate, variously including the following: *Automated exposure control *Adjustment of mA and/or kV according to patient size (this includes techniques or standardized protocols for targeted exams where dose is matched to indication/reason for exam; i.e. extremities or head) *Use of iterative reconstruction technique DLP: 1141 mGy-cm FINDINGS: LUNG BASES: Patchy opacities in bilateral lung bases. LIVER, GALLBLADDER, AND BILIARY TREE: The liver is normal in size, shape, and attenuation. No focal hepatic lesion or biliary ductal dilatation is present. The gallbladder is unremarkable with no evidence of radiopaque gallstones, gallbladder wall thickening, or obvious pericholecystic inflammatory changes. PANCREAS: Unremarkable. SPLEEN: Unremarkable. ADRENAL GLANDS: Unremarkable. KIDNEYS AND URETERS: The kidneys are normal in size, shape, and attenuation. No hydronephrosis, hydroureter, or calculi seen. No perinephric stranding. BLADDER: Decompressed with Cid catheter in place GASTROINTESTINAL TRACT: The large bowel is distended with gas and stool. ABDOMINAL WALL: Diffuse anasarca. LYMPH NODES: Normal. VASCULAR: Unremarkable. PELVIC VISCERA: Unremarkable. OSSEOUS STRUCTURES: Healing right-sided rib fractures. CT/CT abdomen pelvis wo IV con IMPRESSION: 1. No hydronephrosis. 2. Partially visualized patchy opacities in bilateral lung bases which may represent edema or infection. 3. Diffuse anasarca. Fleischner guidelines were followed. Electronically signed by: Mike Galan MD 08/29/2024 03:39 PM EDT
[2024-08-29 13:35] LABS: Mean Corpuscular HGB Conc 32.8 g/dl (31.0-36.0); Mean Corpuscular Hemoglobin 26.6 pg (27.0-33.0); Mean Corpuscular Volume 80.9 fL (80.0-98.0); Mean Platelet Volume 10.7 fL (9.4-12.4); Platelet Count 425 X10*3/uL (160-400); Red Blood Count 2.41 X10*6/uL (4.60-5.80); Red Cell Distribution Width 13.9 % (11.0-16.0)
[2024-08-29 13:42] LABS: Hematocrit 19.5 % (42.0-52.0); Hemoglobin 6.4 g/dl (14.0-18.0); White Blood Count 44.1 X10*3/uL (4.8-10.8)
[2024-08-29 13:51] LABS: B Type Natriuretic Peptide 906 pg/mL (<100)
[2024-08-29 13:57] LABS: Alanine Aminotransferase 15 U/L (0-40); Albumin Level 1.8 g/dL (3.5-5.0); Alkaline Phosphatase 334 U/L (39-117); Anion Gap 22 (12-20); Aspartate Amino Transferase 57 U/L (5-37); Bilirubin Total 0.4 mg/dL (0.0-1.0); Blood Urea Nitrogen 113 mg/dL (9-16); Calcium 6.3 mg/dL (8.4-10.2); Carbon Dioxide 10 mmol/L (22-29); Chloride 102 mmol/L (96-108); Creatinine Clr Calc Pharmacy 17.2; Estimated Glomerular Filt Rate 9; Glucose Random 76 mg/dL (60-115); Potassium 5.4 mmol/L (3.3-5.1); Sodium 129 mmol/L (135-145); Total Protein 6.6 g/dL (6.5-8.0)
--- NOTE | 2024-08-29 14:08 | ED_ITS ---
HPI - General Adult General Chief complaint: General Medical Stated complaint: LEG EDEMA Time Seen by Provider: 08/29/24 13:39 Source: patient Mode of arrival: EMS Limitations: no limitations History of Present Illness HPI narrative: This is 44 years old patient with a history of diabetes chronic renal failure with a baseline creatinine of about 2 history of polysubstance abuse history of peripheral vascular disease presented to the ED complaining of malaise weakness bilateral lower extremity pain. He has no reported fever or vomiting. Onset (ago): day(s) (1) Radiation: non-radiation Severity: moderate Quality: burning Pain Consistency: constant Related Data Home Medications ?Medication ?Instructions ?Recorded ?Confirmed canagliflozin 100 mg tablet 100 mg PO DAILY 05/05/23 (Invokana) nicotine (polacrilex) 4 mg gum 4 mg PO Q2H PRN cravings 05/05/23 05/05/23 Previous Rx's ?Medication ?Instructions ?Recorded polyethylene glycol 3350 17 gram 17 g PO DAILY PRN constipation #30 04/30/23 oral powder packet ea sodium hypochlorite 0.25 % 1 appl topical DAILY #30 mL 04/30/23 solution (HySept) Dakins solution 1/4 strength #1 ea 05/01/23 alcohol swabs 1 pad topical QIDACHS #100 ea 05/01/23 atorvastatin 40 mg tablet 40 mg PO BEDTIME #30 tabs 05/01/23 blood sugar diagnostic (FreeStyle #100 ea 05/01/23 Lite Strips) blood-glucose meter (FreeStyle #1 ea 05/01/23 Lite Meter kit) glipizide 10 mg tablet, extended 10 mg PO DAILY #30 tabs 05/01/23 release 24 hr lancets 28 gauge (FreeStyle #100 ea 05/01/23 Lancets) lisinopril 20 mg tablet 20 mg PO DAILY #30 tabs 05/01/23 melatonin 5 mg tablet 5 mg PO BEDTIME PRN insomnia #30 05/01/23 tabs multivitamin 1 tab PO DAILY #30 tabs 05/01/23 omeprazole 20 mg capsule,delayed 20 mg PO DAILY@0630 #30 caps 05/01/23 release oxycodone 5 mg capsule 5 mg PO BID PRN pain #8 caps 05/01/23 pen needle, diabetic 32 gauge x #100 ea 05/01/23 1/4 cephalexin 500 mg capsule 500 mg PO BID #28 caps 05/07/23 Allergies Allergy/AdvReac Type Severity Reaction Status Date / Time No Known Allergies Allergy Verified 08/29/24 13:00 [No Known Allergies*] Review of Systems 2 Cardiovascular: Cardiovascular: Reports no additional cardiovascular complaints Gastrointestinal: Gastrointestinal: Reports no additional gastrointestinal complaints Integumentary/Breasts: Skin/Breast: Reports system reviewed and no additional complaints, except as docu [facility] Past Medical History Attestation statement: The following information was validated with the patient. Source: unable to obtain Medical History Seizure Polysubstance abuse CKD (chronic kidney disease) stage 3, GFR 30-59 ml/min Foot osteomyelitis, left Amputation of toe of right foot Diabetic ulcer of right foot Hyperglycemia due to type 2 diabetes mellitus Renal failure Sleep apnea Diabetes HTN (hypertension) Surgical History History of surgical procedure (~04/24/23) Social History Social History Household Members: Family Housing: Apartment Do you presently have visiting nurse or other home services: No Alcohol intake: never Patient Tobacco Use Status: Current everyday Tobacco user Tobacco use type: Cigarette Substance Use Type: Crack/Cocaine and Heroin Advance Directives: No Advance Directives Information Provided: No Do you have a plan to hurt others: No Plan service: No Physical Exam ED Vital Signs: Vital Signs - 24 hr 08/29/24 12:53 08/29/24 15:30 08/29/24 15:41 Temperature 98.1 F 98.2 F 98.2 F Pulse Rate 107 H 106 H 106 H Respiratory Rate 30 H 20 16 Blood Pressure 128/29 L 122/62 122/62 Pulse Oximetry 100 100 Oxygen Delivery Method Room Air Room Air 08/29/24 16:03 Temperature 98.2 F Pulse Rate 107 H Respiratory Rate 16 Blood Pressure 120/39 L Pulse Oximetry Oxygen Delivery Method BMI result Body Mass Index 38.5 [id number] distress Const General: cooperative Nutritional Appearance: obese Orientation/consciousness: patient oriented x3 HENMT Head: Yes normal to inspection Ears: hearing grossly normal bilaterally General nose exam: Normal external nose present Mouth: Normal oral and palatal mucosa present Eyes General: appearance normal, both eyes and all related structures Chest Chest palpation & inspection: normal inspection of the chest Resp Effort & Inspection: normal respiratory effort Cardio Jugular venous distension: no JVD Rate: regular rate Rhythm: regular rhythm GI Inspection: Yes normal to inspection Palpation (GI): Soft to palpation, not firm, nontender and no guarding Skin General skin exam: no rashes or lesions noted Lesions: no lesions Rashes: no rashes Neuro General: patient oriented x3 Course Reevaluation(s) Reevaluation #1: Blood pressure remained stable blood transfusion given spoke with renal spoke with the hospitalist spoke with the mother Time: 16:28 Medications Administered Discontinued Medications Generic Name Dose Route Start Last Admin Trade Name Freq PRN Reason Stop Dose Admin Piperacillin Sod/Tazobactam 50 mls @ 100 mls/hr 08/29/24 13:55 08/29/24 14:57 Sod 3.375 gm/ Sodium Chloride IV 08/29/24 14:24 Infused ONCE ONE Infusion Sodium Chloride 1,000 mls @ 999 mls/hr 08/29/24 14:00 08/29/24 15:29 Ns IVCONT 08/29/24 15:00 Infused .Q1H1M LYSSA Infusion Morphine Sulfate 4 mg 08/29/24 15:13 08/29/24 15:29 Morphine Sulfate 4 Mg/Ml Cartridge IVPUSH 08/29/24 15:14 4 mg ONCE ONE Administration Protocol Medical Decision Making Medical Decision Making [facility] Narrative: Patient presented to the emergency department with generalized weakness malaise will check labs chest x-ray reassess Differential Diagnosis Differential Diagnoses: The differential diagnosis associated with the presentation includes Dehydration/renal failure. Admission/Observation Consideration of admission/observation: Escalation of care including admission/observation considered Consult Healthcare Provider Management of the patient was discussed with: Coding Support Specialist Lab Data [facility] Lab Attestation statement: I reviewed the patient's lab results. 08/29/24 13:12 08/29/24 13:12 Labs: Lab Results 08/29/24 08/29/24 08/29/24 Range/Units 13:12 14:03 14:44 WBC 44.1 H* (4.8-10.8) X10*3/uL RBC 2.41 L D (4.60-5.80) X10*6/uL Hgb 6.4 L* D (14.0-18.0) g/dl Hct 19.5 L* D (42.0-52.0) % MCV 80.9 (80.0-98.0) fL MCH 26.6 L (27.0-33.0) pg MCHC 32.8 (31.0-36.0) g/dl RDW 13.9 (11.0-16.0) % Plt Count 425 H D (160-400) X10*3/uL MPV 10.7 (9.4-12.4) fL Immature Gran % (Auto) Cancelled Neut % (Auto) Cancelled Lymph % (Auto) Cancelled [place] % (Auto) Cancelled Eos % (Auto) Cancelled Baso % (Auto) Cancelled Lymph # (Auto) Cancelled [place] # (Auto) Cancelled Eos # (Auto) Cancelled Baso # (Auto) Cancelled Abs Immat Gran (auto) Cancelled Absolute Neuts (auto) Cancelled Absolute Nucleated RBC 0.000 (0.0-0.012) X10*3/uL Nucleated RBC % (auto) 0.0 (0.0-0.2) /100WBC Neutrophils % (Manual) 90 H (45-73) % Band Neutrophils % 8 H (3-5) % Lymphocytes % (Manual) 1 L (20-40) % Monocytes % (Manual) 1 L (2-11) % Abs Neuts (Manual) 43.2 H (2.0-8.3) X10*3/uL Lymphocytes # (Manual) 0.4 L (1.2-4.9) X10*3/uL Monocytes # (Manual) 0.4 (0.1-1.2) X10*3/uL Dohle Bodies PRESENT Platelet Estimate NORMAL (NORMAL) Plt Morphology Comment NORMAL RBC Morphology NOTED Polychromasia 1+ (0-2) /OIF Tavares Cells 1+ (0-2) /OIF Smear Tech's Comments MANUAL DIFF Hold Blue Top SEE NOTE Sodium 129 L (135-145) mmol/L Potassium 5.4 H (3.3-5.1) mmol/L Chloride 102 (96-108) mmol/L Carbon Dioxide 10 L* D (22-29) mmol/L Anion Gap 22 H (12-20) BUN 113 H (9-16) mg/dL Creatinine 6.79 H* (0.5-1.4) mg/dL Estim Creat Clear Calc 17.2 Estimated GFR 9 Random Glucose 76 (60-115) mg/dL Lactic Acid 0.8 (0.5-2.0) mmol/L Calcium 6.3 L D (8.4-10.2) mg/dL Total Bilirubin 0.4 (0.0-1.0) mg/dL AST 57 H (5-37) U/L ALT 15 (0-40) U/L Alkaline Phosphatase 334 H (39-117) U/L B-Natriuretic Peptide 906 H (<100) pg/mL Total Protein 6.6 (6.5-8.0) g/dL Albumin 1.8 L (3.5-5.0) g/dL Urine Color Yellow Urine Appearance Cloudy Urine pH 5.5 (5.0-9.0) Ur Specific [place] 1.015 (1.005-1.025) Urine Protein 300 (3+) H (Neg-Trace) mg/dL Urine Glucose (UA) Negative (Negative) mg/dL Urine Ketones Negative (Negative) mg/dL Urine Blood Moderate (2+) H (Negative) Urine Nitrite Negative (Negative) Ur Leukocyte Esterase Trace H (Negative) Urine RBC 0-2 (0-2) /HPF Urine WBC 6-10 H (0-5) /HPF Ur Squamous Epith Cells 0-2 (0-2) /HPF Urine Bacteria None Seen (None Seen) Hyaline Casts 0-2 (0-2) /LPF Stool Occult Blood NEGATIVE (NEGATIVE) Blood Type O Positive Antibody Screen NEGATIVE Crossmatch See Detail Independent Interpretation I performed an independent interpretation of an: CT Scan Radiology Impression Discussion of test interpretation with radiology: I have reviewed the radiologist's reading. Independent Historian Clinical information obtained from an independent historian. History obtained from or confirmed by: Other (mother) External Record Review External record reviewed: Inpatient record Chronic Conditions Patient?s care impacted by: Diabetes Critical Care Time Critical Care Time Critical Care Time: Yes Total Critical Care Time: 60 Attestation: blood transfusion renal failure Discharge Plan Discharge Clinical Impression: Acidosis Anemia Qualifiers: Anemia type: unspecified type Qualified Code(s): D64.9 - Anemia, unspecified Acute renal failure Qualifiers: Acute renal failure type: unspecified Qualified Code(s): N17.9 - Acute kidney failure, unspecified Leukocytosis Qualifiers: Leukocytosis type: unspecified Qualified Code(s): D72.829 - Elevated white blood cell count, unspecified Patient Disposition: Admitted As Inpatient Print Language: Citizen Of [place]
[2024-08-29] MEDS: 0.9 % Sodium Chloride 1,000 ML 999 ML IVCONT (14:16)
[2024-08-29 14:20] LABS: OBS Int Ctl Valid YES; OBS1 NEGATIVE (NEGATIVE)
[2024-08-29] MEDS: Piperacillin Sodium/Tazobactam 3.375 GM in 0.9 % Sodium Chloride 50 ML IV (14:24)
[2024-08-29 14:26] LABS: Lactic Acid 0.8 mmol/L (0.5-2.0)
[2024-08-29 14:51] LABS: Appearance Urine Cloudy; Color Urine Yellow; Glucose Urine UA Negative (Negative); Leukocyte Esterase Urine Trace (Negative); Nitrite Urine Negative (Negative); PH 5.5 (5.0-9.0); Specific Gravity - Urine 1.015 (1.005-1.025); UMIC TRIGGER UACC YES; Urine Blood Moderate (2+) (Negative); Urine Ketones Negative (Negative); Urine Protein 300 (3+) mg/dL (Neg-Trace)
--- NOTE | 2024-08-29 14:52 | PC.NURSE ---
coming from home for constipation x1 week, upon arrival patient edematous to bilateral lower extremity and trunk. states he has not taken his home meds and this has been increasingly getting worse over the past week to the point where he has not been able to get around the house. two IV's in the right arm, blood work obtained. patient vitals remain stable, complaining of lower abd pain and bilateral leg. iv fluids/antibiotics infusing. 16fr temp sensing verde placed w/ clear yellow urine output. ice chips provided, awaiting blood bank for first unit of blood.
[2024-08-29 14:59] LABS: Bacteria Urine None Seen (None Seen); Hyaline Casts Urine 0-2 /LPF (0-2); RBC Urine 0-2 /HPF (0-2); Squamous Epithelial Cell Urine 0-2 /HPF (0-2); UACC Culture Trigger YES
--- NOTE | 2024-08-29 15:17 | PC.NURSE ---
patient in ct scan at this time
[2024-08-29] MEDS: Morphine Sulfate 4 MG/ML CARTRIDGE IVPUSH (15:29)
--- NOTE | 2024-08-29 15:53 | PC.NURSE ---
first unit of blood infusing at this time, patient w/ no signs/symptoms of distress.
[2024-08-29 16:08] LABS: SLIDE REVIEW MANUAL DIFF
[2024-08-29 16:12] LABS: Band Neutrophils Percent 8 % (3-5); Lymphocytes Absolute Manual 0.4 X10*3/uL (1.2-4.9); Lymphocytes Percent Manual 1 % (20-40); Monocytes Absolute Manual 0.4 X10*3/uL (0.1-1.2); Monocytes Percent Manual 1 % (2-11); Neutrophils Absolute Manual 43.2 X10*3/uL (2.0-8.3); Neutrophils Percent Manual 90 % (45-73)
[2024-08-29 16:15] LABS: Burr Cells 1+ (0-2) /OIF; Platelet Estimate NORMAL (NORMAL); Platelet Morphology Comment NORMAL; Polychromasia 1+ (0-2) /OIF; RBC Morphology NOTED
[2024-08-29 16:16] LABS: Dohle Bodies PRESENT
--- NOTE | 2024-08-29 16:36 | PM.IMHP ---
History of Present Illness Date of Service: 08/29/24 Chief Complaint: weakness 44M PMH hypertension, hyperlipidemia, diabetes, CKD 3, polysubstance dependence, history of peripheral vascular disease presented with weakness. For about 1 week complaining of abdominal bloating, bilateral lower extremity pain and edema, weakness, denies fever or chills. Denies chest pain, nausea, vomiting. In ED found to have significant lab abnormalities including severe leukocytosis of 44% predominantly neutrophils, acute kidney injury, anemia, acidosis. Review of Systems Review of Systems: Yes all other systems are reviewed and are negative [facility] Medical History Seizure Polysubstance abuse CKD (chronic kidney disease) stage 3, GFR 30-59 ml/min Foot osteomyelitis, left Amputation of toe of right foot Diabetic ulcer of right foot Hyperglycemia due to type 2 diabetes mellitus Renal failure Sleep apnea Diabetes HTN (hypertension) Surgical History History of surgical procedure (~04/24/23) Social History Household Members: Family Housing: Apartment Do you presently have visiting nurse or other home services: No Alcohol intake: never Patient Tobacco Use Status: Current everyday Tobacco user Tobacco use type: Cigarette Substance Use Type: Crack/Cocaine and Heroin Advance Directives: No Advance Directives Information Provided: No Do you have a plan to hurt others: No Plan service: No Meds Allergies Allergy/AdvReac Type Severity Reaction Status Date / Time No Known Allergies Allergy Verified 08/29/24 13:00 [No Known Allergies*] Active Medications: Current Medications Acetaminophen (Acetaminophen 325 Mg Tablet) 650 mg PO Q6H PRN PRN Reason: Pain, Mild (Pain Scale 1-3), fever or headache Calcium Carbonate (Calcium Carbonate 750 Mg Tab.Chew) 750 mg PO Q4H PRN PRN Reason: Heartburn Sodium Bicarbonate 150 meq/ (Dextrose) 1,000 mls @ 100 mls/hr IV .Q10H LYSSA Magnesium Hydroxide (Milk Of Magnesia 30 Ml Oral.Susp) 30 ml PO DAILY PRN PRN Reason: Constipation Melatonin (Melatonin 3 Mg Tablet) 6 mg PO BEDTIME PRN PRN Reason: Insomnia Sodium Chloride (0.9 % Sodium Chloride Flush 3 Ml Syringe) 3 ml IVFLUSH QSHIFT [facility] Home Medications ?Medication ?Instructions ?Recorded ?Confirmed ?Last Taken ?Type canagliflozin 100 mg tablet 100 mg PO DAILY 05/05/23 Unknown History (Invokana) nicotine (polacrilex) 4 mg gum 4 mg PO Q2H PRN cravings 05/05/23 05/05/23 Unknown History Physical Exam Vital Signs and Narrative: Vital Signs: Last Vital Signs Temp 98.2 F 08/29/24 16:03 Pulse 107 H 08/29/24 16:03 Resp 16 08/29/24 16:03 BP 120/39 L 08/29/24 16:03 Pulse Ox 100 08/29/24 15:30 O2 Del Method Room Air 08/29/24 15:30 BMI result Body Mass Index 38.5 General: asterixis, lethargic, oriented times 3, ill appearing Resp: CTA bilateral, no accessory muscles used CVS: S1,S2,RRR GI: soft, non tender, non distended Results Labs 08/29/24 13:12 08/29/24 13:12 Labs: Laboratory Results - last 24 hr 08/29/24 08/29/24 08/29/24 13:12 14:03 14:44 MCV 80.9 MCH 26.6 L MCHC 32.8 RDW 13.9 Plt Count 425 H D MPV 10.7 Immature Gran % (Auto) Cancelled Neut % (Auto) Cancelled Lymph % (Auto) Cancelled [place] % (Auto) Cancelled Eos % (Auto) Cancelled Baso % (Auto) Cancelled Lymph # (Auto) Cancelled [place] # (Auto) Cancelled Eos # (Auto) Cancelled Baso # (Auto) Cancelled Abs Immat Gran (auto) Cancelled Absolute Neuts (auto) Cancelled Absolute Nucleated RBC 0.000 Nucleated RBC % (auto) 0.0 Neutrophils % (Manual) 90 H Band Neutrophils % 8 H Lymphocytes % (Manual) 1 L Monocytes % (Manual) 1 L Abs Neuts (Manual) 43.2 H Lymphocytes # (Manual) 0.4 L Monocytes # (Manual) 0.4 Dohle Bodies PRESENT Platelet Estimate NORMAL Plt Morphology Comment NORMAL RBC Morphology NOTED Polychromasia 1+ (0-2) [place] Cells 1+ (0-2) Smear Tech's Comments MANUAL DIFF Hold Blue Top SEE NOTE Anion Gap 22 H Estim Creat Clear Calc 17.2 Estimated GFR 9 Random Glucose 76 Lactic Acid 0.8 Calcium 6.3 L D Total Bilirubin 0.4 AST 57 H ALT 15 Alkaline Phosphatase 334 H B-Natriuretic Peptide 906 H Total Protein 6.6 Albumin 1.8 L Urine Color Yellow Urine Appearance Cloudy Urine pH 5.5 Ur Specific Webb 1.015 Urine Protein 300 (3+) H Urine Glucose (UA) Negative Urine Ketones Negative Urine Blood Moderate (2+) H Urine Nitrite Negative Ur Leukocyte Esterase Trace H Urine RBC 0-2 Urine WBC 6-10 H Ur Squamous Epith Cells 0-2 Urine Bacteria None Seen Hyaline Casts 0-2 Stool Occult Blood NEGATIVE Blood Type O Positive Antibody Screen NEGATIVE Crossmatch See Detail Imaging Radiologist's Impressions: Impressions KUB X-Ray 08/29/24 13:25 IMPRESSION: 1. Prominent fecal loading of the ascending colon greatest along its proximal segment measuring up to 10.8 cm. 2. There is air-filled dilatation of the remaining colon measuring up to 8.4 cm. Electronically signed by: Angeles Galeas MD 08/29/2024 01:41 PM EDT RP Chest X-Ray 08/29/24 13:54 IMPRESSION: 1. Bronchial thickening suggesting infectious/inflammatory etiology. 2. Elevation right hemidiaphragm. 3. Left basilar atelectasis. Electronically signed by: Angeles Galeas MD 08/29/2024 03:07 PM EDT RP Abdomen/Pelvis CT 08/29/24 15:18 IMPRESSION: 1. No hydronephrosis. 2. Partially visualized patchy opacities in bilateral lung bases which may represent edema or infection. 3. Diffuse anasarca. Fleischner guidelines were followed. Electronically signed by: Mike Galan MD 08/29/2024 03:39 PM EDT RP Assessment and Plan (1) Acidosis: Status: Acute Plan 44M PMH hypertension, hyperlipidemia, diabetes, CKD 3, polysubstance dependence, history of peripheral vascular disease presented with weakness found to have merlin, anemia, leukocysotis, acidosis acute metabolic encephalopathy due to uremic encephalopathy due to MERLIN on CKD 3 complicated by acute metabolic acidosis, inflammatory anemia Sodium bicarb infusion, check vasculitis panel, SPEP UPEP, nephrology eval Transfuse PRBC, follow-up CBC, follow-up BMP likely to need HD, will plan for catheter placement 08/30/24 Leukocytosis Question leukemoid reaction, no clear source of infection, no sepsis Monitor Diabetes Insulin sliding scale Hypertension Hold BP meds for now DVT prophylaxis-mechanical due to severe anemia Full code Patient with significant lab abnormalities and encephalopathy likely require at least 2 midnights inpatient Quality Stroke Does the patient have a stroke diagnosis?: No VTE Prior VTE?: No VTE Risk Level:: Medical - moderate - high VTE Device Contraindication: N/A - Device Ordered VTE Drug Contraindication: Treatment Not Indicated
[2024-08-29 16:51] LABS: Beta-Hydroxybutyrate 0.27 mmol/L (0.02-0.27)
[2024-08-29 17:12] LABS: Lactate Dehydrogenase 307 U/L (118-273)
--- NOTE | 2024-08-29 17:38 | PC.NURSE ---
blood continues to infuse w/out incident. family remains at bedside. awaiting sodium bicarb
[2024-08-29] MEDS: Sodium Bicarbonate 8.4% 150 MEQ in Dextrose 5 % 850 ML 100 MEQ IV (17:56)
[2024-08-29] MEDS: Sodium Zirconium Cyclosilicate 10 GM POWD.PACK PO (17:56)
[2024-08-29] MEDS: oxyCODONE HCl Immed Release 5 MG TABLET PO (17:56)
--- NOTE | 2024-08-29 18:18 | PHA.MEDREC ---
Addendum entered by Ludwig Chavis 08/29/24 18:22: reviewed Original Note: Pharmacy Consult ? Medication Reconciliation Pharmacy has completed the medication reconciliation. Spoke with family member at bedside. She reports he has not taken any medications in 3 weeks. He does not have insulin at home. Family member reports glipizide and lisinopril were DC'ed due to his kidney function.
[2024-08-29] MEDS: Calcium Carbonate 750 MG TAB.CHEW PO (19:15)
--- NOTE | 2024-08-29 19:17 | PC.NURSE ---
this rn assumed care of pt. pt is a&ox4, respirations even and unlabored. pt medicated per jan. pt does not speak clearly at baseline. sinus tachy 106-107. pt transfered to hospital bed for comfort. pt skin checked, pt noted to be edematous in LE and lower abdomen. pt noted to have L BKA and all R toes amputated. vss.
[2024-08-29 19:25] LABS: Glucose, Whole Blood 122 mg/dL (60-115)
[2024-08-29 21:13] LABS: Glucose, Whole Blood 148 mg/dL (60-115)
[2024-08-29] MEDS: Nicotine 14 MG PATCH.TD24 TRANSDERMA (22:35)
[2024-08-29] MEDS: Magnesium Hydrox/Alum Hydrox 30 ML ORAL.SUSP 15 ML PO (22:35)
[2024-08-29] MEDS: 0.9 % Sodium Chloride Flush 3 ML SYRINGE IVFLUSH (22:37)
[2024-08-30] VITALS (15 sets, daily range): BP systolic 107–138; BP diastolic 56–78; PULSE 99–107; RESP 18–22; TEMP 36–36.9; O2SAT 86–100
[2024-08-30] MEDS: oxyCODONE HCl Immed Release 5 MG TABLET PO ×2 (00:57→20:22)
[2024-08-30] MEDS: Calcium Carbonate 750 MG TAB.CHEW PO ×3 (01:00→19:54)
[2024-08-30] MEDS: Sodium Bicarbonate 8.4% 150 MEQ in Dextrose 5 % 850 ML 100 MEQ IV ×2 (04:42→16:58)
[2024-08-30 06:04] LABS: Mean Corpuscular HGB Conc 32.7 g/dl (31.0-36.0); Mean Corpuscular Hemoglobin 27.1 pg (27.0-33.0); Mean Platelet Volume 10.7 fL (9.4-12.4); Platelet Count 374 X10*3/uL (160-400); Red Blood Count 2.47 X10*6/uL (4.60-5.80); Red Cell Distribution Width 14.1 % (11.0-16.0)
[2024-08-30 06:12] LABS: Hemoglobin 6.7 g/dl (14.0-18.0); White Blood Count 36.2 X10*3/uL (4.8-10.8)
[2024-08-30 06:13] LABS: Hematocrit 20.5 % (42.0-52.0)
[2024-08-30 06:50] LABS: Alanine Aminotransferase 17 U/L (0-40); Albumin Level 1.7 g/dL (3.5-5.0); Alkaline Phosphatase 484 U/L (39-117); Anion Gap 21 (12-20); Aspartate Amino Transferase 64 U/L (5-37); Bilirubin Direct 0.5 mg/dL (0.0-0.5); Bilirubin Total 0.6 mg/dL (0.0-1.0); Blood Urea Nitrogen 115 mg/dL (9-16); Carbon Dioxide 13 mmol/L (22-29); Chloride 102 mmol/L (96-108); Glucose Fasting 201 mg/dL (60-99); Magnesium 1.8 mg/dL (1.6-2.6); Potassium 5.4 mmol/L (3.3-5.1); Sodium 131 mmol/L (135-145); Total Protein 6.1 g/dL (6.5-8.0)
[2024-08-30 07:11] LABS: Calcium 5.9 mg/dL (8.4-10.2); Creatinine Clr Calc Pharmacy 16.7; Estimated Glomerular Filt Rate 8
[2024-08-30 08:05] LABS: Glucose, Whole Blood 199 mg/dL (60-115)
[2024-08-30] MEDS: Insulin Lispro 100 UNIT/ML 3 ML VIAL SUBCUT ×3 (08:13→20:51)
[2024-08-30] MEDS: Nicotine 14 MG PATCH.TD24 TRANSDERMA (08:14)
[2024-08-30] MEDS: 0.9 % Sodium Chloride Flush 3 ML SYRINGE IVFLUSH ×3 (08:16→20:46)
--- NOTE | 2024-08-30 08:36 | P.PNIM_ITS ---
Subjective Subjective Date of Service: 08/30/24 Interval History: leg pain Physical Exam 2 Vital Signs: Vital Signs: Last Vital Signs Temp 97.7 F 08/30/24 08:18 Pulse 100 08/30/24 08:18 Resp 20 08/30/24 08:18 BP 127/69 08/30/24 08:18 Pulse Ox 100 08/30/24 08:00 O2 Del Method Room Air 08/30/24 08:00 O2 Flow Rate 2 08/30/24 02:00 BMI result Body Mass Index 39.8 lethargic, tremulous, ill appearing, anasarca Objective Data Active Medications Acetaminophen (Acetaminophen 325 Mg Tablet) 650 mg PO Q6H PRN PRN Reason: Pain, Mild (Pain Scale 1-3), fever or headache Calcium Carbonate (Calcium Carbonate 750 Mg Tab.Chew) 750 mg PO Q4H PRN PRN Reason: Heartburn Last Admin: 08/30/24 01:00 Dose: 750 mg Documented By: GARY Comments: c/o of heartburn Glucose (Glucose Gel 15 Gm Gel..Gram.) 15 gm PO Q15M PRN; Protocol PRN Reason: per Hypoglycemia Standing Ord. Dextrose (D10) 250 mls @ 750 mls/hr IV Q15M PRN; Protocol PRN Reason: per Hypoglycemia Standing Ord. Sodium Bicarbonate 150 meq/ (Dextrose) 1,000 mls @ 100 mls/hr IV .Q10H [facility] Last Admin: 08/30/24 04:42 Dose: 100 mls/hr Documented By: AGRY Insulin Human Lispro (Insulin Lispro 100 Unit/Ml 3 Ml Vial) 0 unit SUBCUT QIDACHS [facility]; Protocol Last Admin: 08/30/24 08:13 Dose: 2 unit Documented By: ZAIRE Melatonin (Melatonin 3 Mg Tablet) 6 mg PO BEDTIME PRN PRN Reason: Insomnia Nicotine (Nicotine 14 Mg Patch.Td24) 14 mg TRANSDERMA DAILY [facility] Last Admin: 08/30/24 08:14 Dose: 14 mg Documented By: ZAIRE Oxycodone HCl (Oxycodone Hcl Immed Release 5 Mg Tablet) 5 mg PO Q8H PRN PRN Reason: Pain, Severe (Pain Scale 7-10) Last Admin: 08/30/24 00:57 Dose: 5 mg Documented By: GARY Sodium Chloride (0.9 % Sodium Chloride Flush 3 Ml Syringe) 3 ml IVFLUSH QSHIFT [facility] Last Admin: 08/30/24 08:16 Dose: 3 ml Documented By: ZAIRE Labs 08/30/24 05:37 08/30/24 05:37 Labs: Laboratory Results - last 24 hr 08/29/24 08/29/24 08/29/24 13:12 14:03 14:44 MCV 80.9 MCH 26.6 L MCHC 32.8 RDW 13.9 Plt Count 425 H D MPV 10.7 Immature Gran % (Auto) Cancelled Neut % (Auto) Cancelled Lymph % (Auto) Cancelled [place] % (Auto) Cancelled Eos % (Auto) Cancelled Baso % (Auto) Cancelled Lymph # (Auto) Cancelled [place] # (Auto) Cancelled Eos # (Auto) Cancelled Baso # (Auto) Cancelled Abs Immat Gran (auto) Cancelled Absolute Neuts (auto) Cancelled Absolute Nucleated RBC 0.000 Nucleated RBC % (auto) 0.0 Neutrophils % (Manual) 90 H Band Neutrophils % 8 H Lymphocytes % (Manual) 1 L Monocytes % (Manual) 1 L Abs Neuts (Manual) 43.2 H Lymphocytes # (Manual) 0.4 L Monocytes # (Manual) 0.4 Dohle Bodies PRESENT Platelet Estimate NORMAL Plt Morphology Comment NORMAL RBC Morphology NOTED Polychromasia 1+ (0-2) [place] Cells 1+ (0-2) Smear Tech's Comments MANUAL DIFF Hold Blue Top SEE NOTE Anion Gap 22 H Estim Creat Clear Calc 17.2 Estimated GFR 9 POC Glucose Random Glucose 76 Fasting Glucose Lactic Acid 0.8 Calcium 6.3 L D Magnesium Total Bilirubin 0.4 Direct Bilirubin AST 57 H ALT 15 Alkaline Phosphatase 334 H Lactate Dehydrogenase B-Natriuretic Peptide 906 H Total Protein 6.6 Albumin 1.8 L Beta-Hydroxybutyrate 0.27 Urine Color Yellow Urine Appearance Cloudy Urine pH 5.5 Ur Specific [place] 1.015 Urine Protein 300 (3+) H Urine Glucose (UA) Negative Urine Ketones Negative Urine Blood Moderate (2+) H Urine Nitrite Negative Ur Leukocyte Esterase Trace H Urine RBC 0-2 Urine WBC 6-10 H Ur Squamous Epith Cells 0-2 Urine Bacteria None Seen Hyaline Casts 0-2 Stool Occult Blood NEGATIVE Blood Type O Positive Antibody Screen NEGATIVE Crossmatch See Detail 08/29/24 08/29/24 08/29/24 16:57 19:21 21:09 MCV MCH MCHC RDW Plt Count MPV Immature Gran % (Auto) Neut % (Auto) Lymph % (Auto) [place] % (Auto) Eos % (Auto) Baso % (Auto) Lymph # (Auto) [place] # (Auto) Eos # (Auto) Baso # (Auto) Abs Immat Gran (auto) Absolute Neuts (auto) Absolute Nucleated RBC Nucleated RBC % (auto) Neutrophils % (Manual) Band Neutrophils % Lymphocytes % (Manual) Monocytes % (Manual) Abs Neuts (Manual) Lymphocytes # (Manual) Monocytes # (Manual) Dohle Bodies Platelet Estimate Plt Morphology Comment RBC Morphology Polychromasia [place] Cells Smear Tech's Comments Hold Blue Top Anion Gap Estim Creat Clear Calc Estimated GFR POC Glucose 122 H 148 H Random Glucose Fasting Glucose Lactic Acid Calcium Magnesium Total Bilirubin Direct Bilirubin AST ALT Alkaline Phosphatase Lactate Dehydrogenase 307 H B-Natriuretic Peptide Total Protein Albumin Beta-Hydroxybutyrate Urine Color Urine Appearance Urine pH Ur Specific [place] Urine Protein Urine Glucose (UA) Urine Ketones Urine Blood Urine Nitrite Ur Leukocyte Esterase Urine RBC Urine WBC Ur Squamous Epith Cells Urine Bacteria Hyaline Casts Stool Occult Blood Blood Type Antibody Screen Crossmatch 08/30/24 08/30/24 05:37 07:33 MCV 83.0 MCH 27.1 MCHC 32.7 RDW 14.1 Plt Count 374 MPV 10.7 Immature Gran % (Auto) Neut % (Auto) Lymph % (Auto) [place] % (Auto) Eos % (Auto) Baso % (Auto) Lymph # (Auto) [place] # (Auto) Eos # (Auto) Baso # (Auto) Abs Immat Gran (auto) Absolute Neuts (auto) Absolute Nucleated RBC 0.000 Nucleated RBC % (auto) 0.0 Neutrophils % (Manual) Band Neutrophils % Lymphocytes % (Manual) Monocytes % (Manual) Abs Neuts (Manual) Lymphocytes # (Manual) Monocytes # (Manual) Dohle Bodies Platelet Estimate Plt Morphology Comment RBC Morphology Polychromasia [place] Cells Smear Tech's Comments Hold Blue Top Anion Gap 21 H Estim Creat Clear Calc 16.7 Estimated GFR 8 POC Glucose 199 H Random Glucose Fasting Glucose 201 H Lactic Acid Calcium 5.9 L* D Magnesium 1.8 Total Bilirubin 0.6 Direct Bilirubin 0.5 AST 64 H ALT 17 Alkaline Phosphatase 484 H Lactate Dehydrogenase B-Natriuretic Peptide Total Protein 6.1 L Albumin 1.7 L Beta-Hydroxybutyrate Urine Color Urine Appearance Urine pH Ur Specific [place] Urine Protein Urine Glucose (UA) Urine Ketones Urine Blood Urine Nitrite Ur Leukocyte Esterase Urine RBC Urine WBC Ur Squamous Epith Cells Urine Bacteria Hyaline Casts Stool Occult Blood Blood Type Antibody Screen Crossmatch Assessment and Plan (1) Acidosis: Status: Acute Plan 44M PMH hypertension, hyperlipidemia, diabetes, CKD 3, polysubstance dependence, history of peripheral vascular disease presented with weakness found to have merlin, anemia, leukocysotis, acidosis acute metabolic encephalopathy due to uremic encephalopathy due to MERLIN on CKD 3 complicated by acute metabolic acidosis, inflammatory anemia continue Sodium bicarb infusion, check vasculitis panel, SPEP UPEP, nephrology eval Transfuse additional unit PRBC, follow-up CBC, follow-up BMP likely to need HD, will plan for catheter placement 08/30/24 Leukocytosis Question leukemoid reaction, no clear source of infection, no sepsis Monitor, hematology eval Diabetes Insulin sliding scale Hypertension Hold BP meds for now DVT prophylaxis-mechanical due to severe anemia Full code reason for continued hospitalization:severe merlin Quality Stroke Does the patient have a stroke diagnosis?: No VTE Prior VTE?: No VTE Risk Level:: Medical - moderate - high VTE Device Contraindication: N/A - Device Ordered VTE Drug Contraindication: Treatment Not Indicated
--- NOTE | 2024-08-30 09:18 | P.CNHO_ITS ---
Subjective - Subjective Chief complaint: CONSULT FOR: 1. LEUKOCYTOSIS. 2. ANEMIA. Patient: new to practice Consult date: 08/30/24 Requesting Physician: Duyen. Primary Care Provider: Cristina Stover MD Family Provider: Cristina Stover MD Medical Summary: DIAGNOSIS: PANCYTOPENIA. HPI - Consult Narrative Reason for consult: Consult for: 1. Leukocytosis. 2. Anemia. Narrative: Deandre Luong is a 44 year old gentleman admitted on 08/29 presented with generalized weakness. For about 1 week complaining of abdominal bloating, bilateral lower extremity pain and edema, weakness, denies fever or chills. Denies chest pain, nausea, vomiting. In ED found to have significant lab abnormalities including severe leukocytosis of 44% predominantly neutrophils, acute kidney injury, anemia, acidosis. CT scan of the abdomen from 08/29 revealed: 1. No hydronephrosis. 2. Partially visualized patchy opacities in bilateral lung bases which may represent edema or infection. 3. Diffuse anasarca. Medical History: Seizure Polysubstance abuse CKD (chronic kidney disease) stage 3, GFR 30-59 ml/min Foot osteomyelitis, left Amputation of toe of right foot Diabetic ulcer of right foot Hyperglycemia due to type 2 diabetes mellitus Renal failure Sleep apnea Diabetes HTN (hypertension). Hyperlipidemia, CKD 3, polysubstance dependence, History of peripheral vascular disease Surgical History: History of surgical procedure (~04/24/23) Social History: Household Members: Family Housing: Apartment Do you presently have visiting nurse or other home services: No Alcohol intake: never Patient Tobacco Use Status: Current everyday Tobacco user Tobacco use type: Cigarette Review of Systems Review of Systems: Yes all other systems are reviewed and are negative. Review of Systems - Constitutional Reports system reviewed and no additional complaints, except as documented, Reports lack of energy, Reports weight loss - Eyes Reports system reviewed and no additional complaints, except as documented - ENT Reports system reviewed and no additional complaints, except as documented - Cardiovascular Reports system reviewed and no additional complaints, except as documented - Respiratory Reports no additional respiratory complaints - Gastrointestinal Reports system reviewed and no additional complaints, except as documented - Genitourinary Genitourinary: Reports no additional male genitourinary complaints - Musculoskeletal Reports system reviewed and no additional complaints, except as documented - Integumentary/Breasts Skin/Breast: Reports no additional skin complaints - Neurologic Reports system reviewed and no additional complaints, except as documented - Psychiatric Reports system reviewed and no additional complaints, except as documented - Endocrine Reports no additional endocrine complaints - Hematologic/Lymphatic Reports system reviewed and no additional complaints, except as documented - Allergic/Immunologic Reports system reviewed and no additional complaints, except as documented [facility] Medical History: Medical History (Last Reviewed 09/01/24 @ 09:46 by Catherine Jay, PT) Amputation of toe of right foot Callus of foot CKD (chronic kidney disease) stage 3, GFR 30-59 ml/min Constipation Diabetes Diabetic ulcer of right foot Foot osteomyelitis, left HTN (hypertension) Hyperglycemia due to type 2 diabetes mellitus Polysubstance abuse Renal failure Seizure Sleep apnea Surgical History: Surgical History (Last Reviewed 09/01/24 @ 09:46 by Catherine Jay PT) History of surgical procedure Onset Date: ~04/24/23 Social History: Social History (Last Reviewed 08/31/24 @ 13:03 by Eliecer Cali MD) Living Situation History: Household Members: Spouse Household Members: Family Household Members Other:: Pt and live with his mother Housing: Apartment Do you presently have visiting nurse or other home services: No Alcohol History Details: 1. How often do you have a drink containing alcohol?: c. 2-4 times a month 2. How many drinks containing alcohol do you have on a typical day when you are drinking?: d. 7 to 9 3. How often do you have six or more drinks on one occasion?: d. Weekly AUDIT-C Alcohol total score: 8 Last Drank Other:: 2 weeks ago pt stated Currently Displaying Signs/Symptoms of Alcohol Withdrawal: No Tobacco History: Patient Tobacco Use Status: Current everyday Tobacco Tobacco use type: Cigarette Years Smoked: 33 Smoked in Last 30 Days: Yes e-Cigarette/Vaping Use: Currently Using Frequency of e-Cigarette/Vaping use: 4/5 x per day Patient Interested in Nicotine Replacement: Yes Patient Given Instructions on How to Stop Smoking: Yes Date Education Initiated: 08/29/24 Substance Use History: Substance Use Type: Heroin Substance Use Type Other:: sniffs heroin 2-3 bundles/day per pt Substance Use Frequency: Daily Last Used Substance: Hours (ago) Currently Displaying Signs/Symptoms of Drug Intoxication Withdrawal: No Any prior treatment program specific to substance use: No Domestic Abuse History: Have you been hit, kicked, punched, or otherwise hurt by someone within the past year? If so, by whom?: No Do you feel safe in your current relationship?: Yes Is there a partner from a previous relationship who is making you feel unsafe now?: No Are you made to feel afraid or neglected: No Healthcare Practices: [facility] Practices: [facility] Advance Directives: Advance Directives: No Advance Directives Information Provided: No Homicidal Assessment: Do you have a plan to hurt others: No Plan Nutrition Assessment: Recently lost weight without trying: Yes How much weight loss: Unsure Eating poorly because of decreased appetite: Yes Nutrition screen score: 5 Nutrition Risks: No Nutritional Risk Poor oral hygiene: No Occupation Assessmet: service: No Home Medications and Allergies Current Medications: Current Medications Acetaminophen (Acetaminophen 325 Mg Tablet) 650 mg PO Q6H PRN PRN Reason: Pain, Mild (Pain Scale 1-3), fever or headache Calcium Carbonate (Calcium Carbonate 750 Mg Tab.Chew) 750 mg PO Q4H PRN PRN Reason: Heartburn Last Admin: 08/30/24 01:00 Dose: 750 mg Glucose (Glucose Gel 15 Gm Gel..Gram.) 15 gm PO Q15M PRN; Protocol PRN Reason: per Hypoglycemia Standing Ord. Dextrose (D10) 250 mls @ 750 mls/hr IV Q15M PRN; Protocol PRN Reason: per Hypoglycemia Standing Ord. Sodium Bicarbonate 150 meq/ (Dextrose) 1,000 mls @ 100 mls/hr IV .Q10H [facility] Last Admin: 08/30/24 04:42 Dose: 100 mls/hr Insulin Human Lispro (Insulin Lispro 100 Unit/Ml 3 Ml Vial) 0 unit SUBCUT QIDACHS [facility]; Protocol Last Admin: 08/30/24 08:13 Dose: 2 unit Melatonin (Melatonin 3 Mg Tablet) 6 mg PO BEDTIME PRN PRN Reason: Insomnia Nicotine (Nicotine 14 Mg Patch.Td24) 14 mg TRANSDERMA DAILY [facility] Last Admin: 08/30/24 08:14 Dose: 14 mg Oxycodone HCl (Oxycodone Hcl Immed Release 5 Mg Tablet) 5 mg PO Q8H PRN PRN Reason: Pain, Severe (Pain Scale 7-10) Last Admin: 08/30/24 00:57 Dose: 5 mg Sodium Chloride (0.9 % Sodium Chloride Flush 3 Ml Syringe) 3 ml IVFLUSH QSHIFT [facility] Last Admin: 08/30/24 08:16 Dose: 3 ml Allergies Allergy/AdvReac Type Severity Reaction Status Date / Time No Known Allergies Allergy Verified 08/29/24 13:00 [No Known Allergies*] Physical Exam Vital signs: Vital Signs Temp 98 F 08/30/24 08:35 Pulse 102 H 08/30/24 08:35 Resp 22 H 08/30/24 08:35 BP 117/56 L 08/30/24 08:35 Pulse Ox 100 08/30/24 08:00 O2 Del Method Room Air 08/30/24 08:00 O2 Flow Rate 2 08/30/24 02:00 Intake & Output 08/29/24 08/30/24 08/30/24 18:59 06:59 18:59 Intake Total 1400 / 2850 1450 / 2850 0 / 0 Output Total 350 / 350 Balance 1400 / 2500 1100 / 2500 0 / 0 Urine Output (Average ml/kg/hr) 0.24 0.24 Intake: Intake, Oral Amount 450 / 450 Intake (Blood Product) Amount 350 / 350 0 / 0 Red Blood Cells (E0336) Unit 0 / 0 [id number] Red Blood Cells (E0336) Unit 350 / 350 [id number] Intake, IV Amount 1050 / 2050 1000 / 2050 Piperacillin Sodium/Tazobactam 50 / 50 3.375 gm In 0.9 % Sodium Chloride 50 ml @ 100 mls/hr IV ONCE ONE Rx#:[id number] Sodium Bicarbonate 8.4% 150 meq 1000 / 1000 In Dextrose 5 % 850 ml @ 100 mls/hr IV .Q10H [facility] Rx#: [id number] 0.9 % Sodium Chloride 1,000 ml 1000 / 1000 @ 999 mls/hr IVCONT .Q1H1M [facility] Rx#:[id number] Output: Output, Urine Amount (Catheter) 350 / 350 Straight 350 / 350 Other: Urine Color Yellow Last Bowel Movement 08/24/24 Weight 118.3 kg 122.2 kg [place] Weight in Grams [id number] Weight 122.2 kg - Constitutional Present: mild distress - Routine HEENT Exam Head: Present: normal inspection, normocephalic ENT: Present: mucous membranes moist - Routine Neck Exam Present: supple Hem/Onc Consult Result - Labs CBC & Chem 7: 09/12/24 06:21 09/12/24 06:21 Labs: Short CBC 08/29/24 08/30/24 Range/Units 13:12 05:37 WBC 44.1 H* 36.2 H* (4.8-10.8) X10*3/uL Hgb 6.4 L* D 6.7 L* (14.0-18.0) g/dl Hct 19.5 L* D 20.5 L* (42.0-52.0) % Plt Count 425 H D 374 (160-400) X10*3/uL BMP 08/29/24 08/30/24 13:12 05:37 Sodium 129 L 131 L Potassium 5.4 H 5.4 H Chloride 102 102 Carbon Dioxide 10 L* D 13 L BUN 113 H 115 H Creatinine 6.79 H* 7.10 H* Calcium 6.3 L D 5.9 L* D Liver Function 08/29/24 08/30/24 Range/Units 13:12 05:37 Total Bilirubin 0.4 0.6 (0.0-1.0) mg/dL Direct Bilirubin 0.5 (0.0-0.5) mg/dL AST 57 H 64 H (5-37) U/L ALT 15 17 (0-40) U/L Alkaline Phosphatase 334 H 484 H (39-117) U/L Albumin 1.8 L 1.7 L (3.5-5.0) g/dL Urine 08/29/24 Range/Units 14:44 Urine Color Yellow Urine Appearance Cloudy Urine pH 5.5 (5.0-9.0) Ur Specific [place] 1.015 (1.005-1.025) Urine Protein 300 (3+) H (Neg-Trace) mg/dL Urine Glucose (UA) Negative (Negative) mg/dL Assessment and Plan Patient Active problem list reviewed?: Yes (1) Leukocytosis Status: Acute Assessment and plan: 44-year-old gentleman with polysubstance abuse, cocaine, presents with generalized weakness. Noted to have leukocytosis with WBC of 52, and significant anemia with hemoglobin of 6.7. DIFFERENTIAL DIAGNOSIS: 1. REACTIVE/LEUKEMOID REACTION: Most likely. 2. MYELOPROLIFERATIVE NEOPLASM i.e CML. PLAN: Will check : LDH: 341. BCR-ABL gene transcript: checked: Negative. Anemia workup in progress. Concern is anemia of chronic disease due to kidney disease. Patient on dialysis. Started on Procrit. He is recieving a couple of Blood transfusions. Thank you for the consult, I will follow along with you, CC: Cristina Stover. - Time Spent With Patient Time Spent with Patient (in minutes): 30
--- NOTE | 2024-08-30 09:41 | PM.CNNEP ---
History of Present Illness Reason for Consult Consult date: 08/30/24 Chief Complaint Chief complaint: merlin History of Present Illness Narrative: 44 y/o male with a medical history of HTN, HLD, CKD3, polysubstance dependence, PVD. 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 He presented on 08/29 with weakness, abdominal bloating, lower extremity edema/pain. creatinine 6.79 on 08/29 (previous creatinine 2.02 from 1 year ago), 08/30 increased to 7.10 potassium 5.4 on 08/29, 5.4 08/30, received lokelma on 08/29 sodium 129 08/29, 131 08/30 serum bicarb 10 on 08/29, 13 on 08/30 (has been receiving bicarbonate at 100mL/hr) CT abd/pelvis on 08/29 showed no hydronephrosis, kidneys/ureters unremarkable, showed diffuse anasarca and pulmonary edema Patient today is alert and oriented states his breathing is wheezy denies chest pain, abdominal pain, flank pain states swelling has improved in his lower extremities patient reports he has been having bad muscle cramping denies pruritus, nasuea, vomiting states yesterday he had some jerking/tremors, denies today Review of Systems Constitutional: Reports fatigue and Reports weakness Cardiovascular: Denies chest pain, Denies lightheadedness and Reports dyspnea Respiratory: Reports cough, Reports dyspnea and Reports wheezing Gastrointestinal: Denies abdominal pain, Denies constipation and Reports loose stools Genitourinary: Denies hematuria, Denies oliguria and Denies dysuria Musculoskeletal: Denies back pain Skin/Breast: Denies rash Reports weakness Comments: reports some tremors/jerking yesterday but states he though it had gotten better overnight Endocrine: Reports fatigue Allergic/Immunologic: Reports wheezing PMFSH Past Medical History Medical History Seizure Polysubstance abuse CKD (chronic kidney disease) stage 3, GFR 30-59 ml/min Foot osteomyelitis, left Amputation of toe of right foot Diabetic ulcer of right foot Hyperglycemia due to type 2 diabetes mellitus Renal failure Sleep apnea Diabetes HTN (hypertension) Surgical History Surgical History History of surgical procedure (~04/24/23) Social History Social History Household Members: Spouse and Family Household Members Other:: Pt and live with his mother Housing: Apartment Do you presently have visiting nurse or other home services: No Alcohol intake: never Patient Tobacco Use Status: Current everyday Tobacco user Tobacco use type: Cigarette Years Smoked: 33 Smoked in Last 30 Days: Yes e-Cigarette/Vaping Use: Currently Using Frequency of e-Cigarette/Vaping Use: 4/5 x per day Patient Interested in Nicotine Replacement: Yes Patient Given Instructions on How to Stop Smoking: Yes Date Education Initiated: 08/29/24 Substance Use Type: Heroin Substance Use Type Other:: sniffs heroin 2-3 bundles/day per pt Substance Use Frequency: Daily Last Used Substance: Hours (ago) Currently Displaying Signs/Symptoms of Drug Intoxication Withdrawal: No Any prior treatment program specific to substance use: No Have you been hit, kicked, punched, or otherwise hurt by someone within the past year? If so, by whom?: No Do you feel safe in your current relationship?: Yes Is there a partner from a previous relationship who is making you feel unsafe now?: No Are you made to feel afraid or neglected: No Hoahaoism Healthcare Practices: Pentocostal Advance Directives: No Advance Directives Information Provided: No Do you have a plan to hurt others: No Plan Recently lost weight without trying: Yes How much weight loss: Unsure Eating poorly because of decreased appetite: Yes Nutrition screen score: 5 Nutrition Risks: No Nutritional Risk Poor oral hygiene: No service: No Meds Allergies Allergy/AdvReac Type Severity Reaction Status Date / Time No Known Allergies Allergy Verified 08/29/24 13:00 [No Known Allergies*] Active Medications: Current Medications Acetaminophen (Acetaminophen 325 Mg Tablet) 650 mg PO Q6H PRN PRN Reason: Pain, Mild (Pain Scale 1-3), fever or headache Calcium Carbonate (Calcium Carbonate 750 Mg Tab.Chew) 750 mg PO Q4H PRN PRN Reason: Heartburn Last Admin: 08/30/24 01:00 Dose: 750 mg Glucose (Glucose Gel 15 Gm Gel..Gram.) 15 gm PO Q15M PRN; Protocol PRN Reason: per Hypoglycemia Standing Ord. Dextrose (D10) 250 mls @ 750 mls/hr IV Q15M PRN; Protocol PRN Reason: per Hypoglycemia Standing Ord. Sodium Bicarbonate 150 meq/ (Dextrose) 1,000 mls @ 100 mls/hr IV .Q10H [facility] Last Admin: 08/30/24 04:42 Dose: 100 mls/hr Insulin Human Lispro (Insulin Lispro 100 Unit/Ml 3 Ml Vial) 0 unit SUBCUT QIDACHS [facility]; Protocol Last Admin: 08/30/24 08:13 Dose: 2 unit Melatonin (Melatonin 3 Mg Tablet) 6 mg PO BEDTIME PRN PRN Reason: Insomnia Nicotine (Nicotine 14 Mg Patch.Td24) 14 mg TRANSDERMA DAILY [facility] Last Admin: 08/30/24 08:14 Dose: 14 mg Oxycodone HCl (Oxycodone Hcl Immed Release 5 Mg Tablet) 5 mg PO Q8H PRN PRN Reason: Pain, Severe (Pain Scale 7-10) Last Admin: 08/30/24 00:57 Dose: 5 mg Sodium Chloride (0.9 % Sodium Chloride Flush 3 Ml Syringe) 3 ml IVFLUSH QSHIFT [facility] Last Admin: 08/30/24 08:16 Dose: 3 ml Physical Exam Vital Signs: Last Vital Signs Temp 98 F 08/30/24 08:35 Pulse 102 H 08/30/24 08:35 Resp 22 H 08/30/24 08:35 BP 117/56 L 08/30/24 08:35 Pulse Ox 100 08/30/24 08:00 O2 Del Method Room Air 08/30/24 08:00 O2 Flow Rate 2 08/30/24 02:00 BMI result Body Mass Index 39.8 Const General: no acute distress, alert and awake Orientation/consciousness: patient oriented x3 Resp Effort & Inspection: normal respiratory effort and Actively coughing Auscultation: wheezes Cardio Jugular venous distension: no JVD Rate: regular rate Rhythm: regular rhythm Heart sounds: S1 normal heart sound present and S2 normal heart sound present GI Palpation (GI): Soft to palpation and nontender General: Yes no CVA tenderness Back/Spine/Pelvis Back: no CVA tenderness Skin Lesions: no lesions Rashes: no rashes Neuro General: patient oriented x3 and moves all extremities Motor exam (neuro): no tremor noted, no asterixis, Motor abnormalites present and Other motor observations present (patient had episode of full-body, transient jerk x1 during examination) Extrem General: Yes no pedal edema (no left pedal edema) Results Lab Results 08/30/24 05:37 08/30/24 05:37 Lab results: Chemistry 08/29/24 08/30/24 13:12 05:37 Sodium 129 L 131 L Potassium 5.4 H 5.4 H Carbon Dioxide 10 L* D 13 L BUN 113 H 115 H Creatinine 6.79 H* 7.10 H* Calcium 6.3 L D 5.9 L* D Hematology 08/29/24 08/30/24 13:12 05:37 WBC 44.1 H* 36.2 H* Hgb 6.4 L* D 6.7 L* Plt Count 425 H D 374 Urinalysis 08/29/24 14:44 Urine Color Yellow Urine Appearance Cloudy Urine pH 5.5 Ur Specific [place] 1.015 Urine Protein 300 (3+) H Urine Glucose (UA) Negative Urine Ketones Negative Urine Blood Moderate (2+) H Urine Nitrite Negative Ur Leukocyte Esterase Trace H Urine RBC 0-2 Urine WBC 6-10 H Ur Squamous Epith Cells 0-2 Hyaline Casts 0-2 Assessment and Plan (1) MERLIN (acute kidney injury): Status: Acute (2) CKD (chronic kidney disease) stage 3, GFR 30-59 ml/min: Qualifiers: Chronic kidney disease stage 3 subtype: stage 3b (GFR 30-44) Qualified Code(s): N18.32 - Chronic kidney disease, stage 3b Status: Acute (3) Acute renal failure: Qualifiers: Acute renal failure type: unspecified Qualified Code(s): N17.9 - Acute kidney failure, unspecified Status: Acute Plan Patient with MERLIN on CKD vs natural progression of underlying disease Patient has been positive for cocaine in the past, differential includes cocaine-induced injury Patient showing signs of uremia with myoclonus episode, complain of muscle cramping creatinine is trending up with electrolyte abnormalities HD catheter insertion order is in place plan for dialysis today once catheter is inserted patient continues to put out urine (350mL overnight) H&H is low, replacement with pRBCs Will need renal biopsy, will hold for now as H&H is very low Continue bicarbonate drip as ordered Continue close monitoring of electrolytes, blood pressure, urine output Will continue to follow closely Discussed with Dr Pari Reaves Date of Service Date of Service: 08/30/24
[2024-08-30 09:58] LABS: Amphetamine Screen Urine Not Detected (Not Detect); Barbiturates, Urine Not Detected (Not Detect); Benzodiazepines Screen Urine Not Detected (Not Detect); Buprenorphine Scr Not Detected (Not Detect); Cannabinoid Screen Urine Not Detected (Not Detect); Cocaine Screen Urine POSITIVE (Not Detect); Fentanyl, urine POSITIVE (Not Detect); Methadone Screen, Urine Not Detected (Not Detect); Opiate Screen Urine POSITIVE (Not Detect); Oxycodone Screen Urine Positive (Not Detect); Phencyclidine Screen Urine Not Detected (Not Detect)
--- NOTE | 2024-08-30 10:37 | HO.ADDICT_ITS ---
History of Present Illness Date of Service: 08/30/2024 Chief Complaint: merlin Reason for Consult: OUD Sources of Information: patient interviewed and chart reviewed HPI Narrative: Patient is a 44 year old male with numerous medical comorbidities, including DM, and CKD, medically admitted with acute metabolic encephalopathy and MERLIN. Consult requested to address OUD. UDS +fentanyl, oxycodone and cocaine Patient seen in room 461, laying in bed, asleep, but easily awoken. Somewhat difficult to understand at times as speech was garbled and he would trail off to sleep while answering questions. He reports using approx 3 bundles of fentanyl daily last use prior to admission Reports he had been on methadone --unclear when this was and it seems it was while he was in a different hospital setting He was unable to describe withdrawal sx, but was noted to be restless and tachycardic Review of Systems Review of Systems Yes Unobtainable due to mental status Diagnostics Vital Signs (24Hr): Vital Signs - 24 hr 08/29/24 12:53 08/29/24 15:30 08/29/24 15:41 Temperature 98.1 F 98.2 F 98.2 F Pulse Rate 107 H 106 H 106 H Respiratory Rate 30 H 20 16 Blood Pressure 128/29 L 122/62 122/62 Pulse Oximetry 100 100 Oxygen Delivery Method Room Air Room Air Oxygen Flow Rate 08/29/24 16:03 08/29/24 17:38 08/29/24 18:51 Temperature 98.2 F 98.8 F 99.1 F Pulse Rate 107 H 107 H 108 H Respiratory Rate 16 20 20 Blood Pressure 120/39 L 135/57 L 106/58 L Pulse Oximetry 93 Oxygen Delivery Method Room Air Oxygen Flow Rate 08/29/24 19:11 08/29/24 20:59 08/30/24 00:00 Temperature 99.0 F 98.3 F 98.4 F Pulse Rate 107 H 108 H 107 H Respiratory Rate 15 20 20 Blood Pressure 144/61 H 127/60 112/57 L Pulse Oximetry 99 98 98 Oxygen Delivery Method Room Air Room Air Room Air Oxygen Flow Rate 08/30/24 01:30 08/30/24 02:00 08/30/24 02:09 Temperature Pulse Rate Respiratory Rate 18 Blood Pressure Pulse Oximetry 86 L 98 Oxygen Delivery Method Room Air Nasal Cannula Oxygen Flow Rate 2 08/30/24 04:00 08/30/24 08:00 08/30/24 08:18 Temperature 97.8 F 97.7 F 97.7 F Pulse Rate 101 H 101 H 100 Respiratory Rate 20 20 20 Blood Pressure 107/58 L 127/69 127/69 Pulse Oximetry 97 100 Oxygen Delivery Method Room Air Room Air Oxygen Flow Rate 08/30/24 08:35 Temperature 98 F Pulse Rate 102 H Respiratory Rate 22 H Blood Pressure 117/56 L Pulse Oximetry Oxygen Delivery Method Oxygen Flow Rate BMI result Body Mass Index 39.8 Labs 08/30/24 05:37 08/30/24 05:37 Labs: Laboratory Results - last 48 hr 08/29/24 08/29/24 08/29/24 13:12 14:03 14:44 WBC 44.1 H* RBC 2.41 L D Hgb 6.4 L* D Hct 19.5 L* D MCV 80.9 MCH 26.6 L MCHC 32.8 RDW 13.9 Plt Count 425 H D MPV 10.7 Immature Gran % (Auto) Cancelled Neut % (Auto) Cancelled Lymph % (Auto) Cancelled [place] % (Auto) Cancelled Eos % (Auto) Cancelled Baso % (Auto) Cancelled Lymph # (Auto) Cancelled [place] # (Auto) Cancelled Eos # (Auto) Cancelled Baso # (Auto) Cancelled Abs Immat Gran (auto) Cancelled Absolute Neuts (auto) Cancelled Absolute Nucleated RBC 0.000 Nucleated RBC % (auto) 0.0 Neutrophils % (Manual) 90 H Band Neutrophils % 8 H Lymphocytes % (Manual) 1 L Monocytes % (Manual) 1 L Abs Neuts (Manual) 43.2 H Lymphocytes # (Manual) 0.4 L Monocytes # (Manual) 0.4 Dohle Bodies PRESENT Platelet Estimate NORMAL Plt Morphology Comment NORMAL RBC Morphology NOTED Polychromasia 1+ (0-2) [place] Cells 1+ (0-2) Smear Tech's Comments MANUAL DIFF Smear Path Review SEE NOTE Hold Blue Top SEE NOTE Sodium 129 L Potassium 5.4 H Chloride 102 Carbon Dioxide 10 L* D Anion Gap 22 H BUN 113 H Creatinine 6.79 H* Estim Creat Clear Calc 17.2 Estimated GFR 9 POC Glucose Random Glucose 76 Fasting Glucose Lactic Acid 0.8 Calcium 6.3 L D Magnesium Total Bilirubin 0.4 Direct Bilirubin AST 57 H ALT 15 Alkaline Phosphatase 334 H Lactate Dehydrogenase B-Natriuretic Peptide 906 H Total Protein 6.6 Albumin 1.8 L Beta-Hydroxybutyrate 0.27 Urine Color Yellow Urine Appearance Cloudy Urine pH 5.5 Ur Specific [place] 1.015 Urine Protein 300 (3+) H Urine Glucose (UA) Negative Urine Ketones Negative Urine Blood Moderate (2+) H Urine Nitrite Negative Ur Leukocyte Esterase Trace H Urine RBC 0-2 Urine WBC 6-10 H Ur Squamous Epith Cells 0-2 Urine Bacteria None Seen Hyaline Casts 0-2 Stool Occult Blood NEGATIVE Urine Opiates Screen Ur Buprenorphine Scrn Ur Oxycodone Screen Urine Methadone Screen Urine Fentanyl Screen Ur Barbiturates Screen Ur Phencyclidine Scrn Ur Amphetamines Screen U Benzodiazepines Scrn Urine Cocaine Screen U Marijuana (THC) Screen Blood Type O Positive Antibody Screen NEGATIVE Crossmatch See Detail 08/29/24 08/29/24 08/29/24 16:57 19:21 21:09 WBC RBC Hgb Hct MCV MCH MCHC RDW Plt Count MPV Immature Gran % (Auto) Neut % (Auto) Lymph % (Auto) [place] % (Auto) Eos % (Auto) Baso % (Auto) Lymph # (Auto) [place] # (Auto) Eos # (Auto) Baso # (Auto) Abs Immat Gran (auto) Absolute Neuts (auto) Absolute Nucleated RBC Nucleated RBC % (auto) Neutrophils % (Manual) Band Neutrophils % Lymphocytes % (Manual) Monocytes % (Manual) Abs Neuts (Manual) Lymphocytes # (Manual) Monocytes # (Manual) Dohle Bodies Platelet Estimate Plt Morphology Comment RBC Morphology Polychromasia [place] Cells Smear Tech's Comments Smear Path Review Hold Blue Top Sodium Potassium Chloride Carbon Dioxide Anion Gap BUN Creatinine Estim Creat Clear Calc Estimated GFR POC Glucose 122 H 148 H Random Glucose Fasting Glucose Lactic Acid Calcium Magnesium Total Bilirubin Direct Bilirubin AST ALT Alkaline Phosphatase Lactate Dehydrogenase 307 H B-Natriuretic Peptide Total Protein Albumin Beta-Hydroxybutyrate Urine Color Urine Appearance Urine pH Ur Specific [place] Urine Protein Urine Glucose (UA) Urine Ketones Urine Blood Urine Nitrite Ur Leukocyte Esterase Urine RBC Urine WBC Ur Squamous Epith Cells Urine Bacteria Hyaline Casts Stool Occult Blood Urine Opiates Screen Ur Buprenorphine Scrn Ur Oxycodone Screen Urine Methadone Screen Urine Fentanyl Screen Ur Barbiturates Screen Ur Phencyclidine Scrn Ur Amphetamines Screen U Benzodiazepines Scrn Urine Cocaine Screen U Marijuana (THC) Screen Blood Type Antibody Screen Crossmatch 08/30/24 08/30/24 08/30/24 05:37 07:33 09:26 WBC 36.2 H* RBC 2.47 L Hgb 6.7 L* Hct 20.5 L* MCV 83.0 MCH 27.1 MCHC 32.7 RDW 14.1 Plt Count 374 MPV 10.7 Immature Gran % (Auto) Neut % (Auto) Lymph % (Auto) [place] % (Auto) Eos % (Auto) Baso % (Auto) Lymph # (Auto) [place] # (Auto) Eos # (Auto) Baso # (Auto) Abs Immat Gran (auto) Absolute Neuts (auto) Absolute Nucleated RBC 0.000 Nucleated RBC % (auto) 0.0 Neutrophils % (Manual) Band Neutrophils % Lymphocytes % (Manual) Monocytes % (Manual) Abs Neuts (Manual) Lymphocytes # (Manual) Monocytes # (Manual) Dohle Bodies Platelet Estimate Plt Morphology Comment RBC Morphology Polychromasia [place] Cells Smear Tech's Comments Smear Path Review Hold Blue Top Sodium 131 L Potassium 5.4 H Chloride 102 Carbon Dioxide 13 L Anion Gap 21 H BUN 115 H Creatinine 7.10 H* Estim Creat Clear Calc 16.7 Estimated GFR 8 POC Glucose 199 H Random Glucose Fasting Glucose 201 H Lactic Acid Calcium 5.9 L* D Magnesium 1.8 Total Bilirubin 0.6 Direct Bilirubin 0.5 AST 64 H ALT 17 Alkaline Phosphatase 484 H Lactate Dehydrogenase B-Natriuretic Peptide Total Protein 6.1 L Albumin 1.7 L Beta-Hydroxybutyrate Urine Color Urine Appearance Urine pH Ur Specific [place] Urine Protein Urine Glucose (UA) Urine Ketones Urine Blood Urine Nitrite Ur Leukocyte Esterase Urine RBC Urine WBC Ur Squamous Epith Cells Urine Bacteria Hyaline Casts Stool Occult Blood Urine Opiates Screen POSITIVE H Ur Buprenorphine Scrn Not Detected Ur Oxycodone Screen Positive H Urine Methadone Screen Not Detected Urine Fentanyl Screen POSITIVE H Ur Barbiturates Screen Not Detected Ur Phencyclidine Scrn Not Detected Ur Amphetamines Screen Not Detected U Benzodiazepines Scrn Not Detected Urine Cocaine Screen POSITIVE H U Marijuana (THC) Screen Not Detected Blood Type Antibody Screen Crossmatch Imaging Radiology Impressions: ITS Impressions KUB X-Ray 08/29/24 13:25 IMPRESSION: 1. Prominent fecal loading of the ascending colon greatest along its proximal segment measuring up to 10.8 cm. 2. There is air-filled dilatation of the remaining colon measuring up to 8.4 cm. Electronically signed by: Angeles Galeas MD 08/29/2024 01:41 PM EDT RP Chest X-Ray 08/29/24 13:54 IMPRESSION: 1. Bronchial thickening suggesting infectious/inflammatory etiology. 2. Elevation right hemidiaphragm. 3. Left basilar atelectasis. Electronically signed by: Angeles Galeas MD 08/29/2024 03:07 PM EDT RP Abdomen/Pelvis CT 08/29/24 15:18 IMPRESSION: 1. No hydronephrosis. 2. Partially visualized patchy opacities in bilateral lung bases which may represent edema or infection. 3. Diffuse anasarca. Fleischner guidelines were followed. Electronically signed by: Mike Galan MD 08/29/2024 03:39 PM EDT RP Mental Status Exam Mental Status Exam Level of Consciousness: Drowsy and Restless Medications Medications Current Medications Acetaminophen (Acetaminophen 325 Mg Tablet) 650 mg PO Q6H PRN PRN Reason: Pain, Mild (Pain Scale 1-3), fever or headache Calcium Carbonate (Calcium Carbonate 750 Mg Tab.Chew) 750 mg PO Q4H PRN PRN Reason: Heartburn Last Admin: 08/30/24 01:00 Dose: 750 mg Glucose (Glucose Gel 15 Gm Gel..Gram.) 15 gm PO Q15M PRN; Protocol PRN Reason: per Hypoglycemia Standing Ord. Dextrose (D10) 250 mls @ 750 mls/hr IV Q15M PRN; Protocol PRN Reason: per Hypoglycemia Standing Ord. Sodium Bicarbonate 150 meq/ (Dextrose) 1,000 mls @ 100 mls/hr IV .Q10H [facility] Last Admin: 08/30/24 04:42 Dose: 100 mls/hr Insulin Human Lispro (Insulin Lispro 100 Unit/Ml 3 Ml Vial) 0 unit SUBCUT QIDACHS [facility]; Protocol Last Admin: 08/30/24 08:13 Dose: 2 unit Melatonin (Melatonin 3 Mg Tablet) 6 mg PO BEDTIME PRN PRN Reason: Insomnia Nicotine (Nicotine 14 Mg Patch.Td24) 14 mg TRANSDERMA DAILY [facility] Last Admin: 08/30/24 08:14 Dose: 14 mg Oxycodone HCl (Oxycodone Hcl Immed Release 5 Mg Tablet) 5 mg PO Q8H PRN PRN Reason: Pain, Severe (Pain Scale 7-10) Last Admin: 08/30/24 00:57 Dose: 5 mg Sodium Chloride (0.9 % Sodium Chloride Flush 3 Ml Syringe) 3 ml IVFLUSH QSHIFT [facility] Last Admin: 08/30/24 08:16 Dose: 3 ml Allergies Allergies Allergy/AdvReac Type Severity Reaction Status Date / Time No Known Allergies Allergy Verified 08/29/24 13:00 [No Known Allergies*] Assessment & Plan Assessment & Plan (1) Opioid use disorder, severe, dependence: Status: Acute Code(s): F11.20 - Opioid dependence, uncomplicated Assessment and Plan: * methadone 10mg q3H PRN withdrawal sx * COWS q4H * dose to be titrated as appropriate * comfort medications as needed Total time managing care of this patient today _20___ minutes. PMFSH Past Medical History Medical History Seizure Polysubstance abuse CKD (chronic kidney disease) stage 3, GFR 30-59 ml/min Foot osteomyelitis, left Amputation of toe of right foot Diabetic ulcer of right foot Hyperglycemia due to type 2 diabetes mellitus Renal failure Sleep apnea Diabetes HTN (hypertension) Surgical History Surgical History History of surgical procedure (~04/24/23) Social History Social History Household Members: Spouse and Family Household Members Other:: Pt and live with his mother Housing: Apartment Do you presently have visiting nurse or other home services: No Alcohol intake: never Patient Tobacco Use Status: Current everyday Tobacco user Tobacco use type: Cigarette Years Smoked: 33 Smoked in Last 30 Days: Yes e-Cigarette/Vaping Use: Currently Using Frequency of e-Cigarette/Vaping Use: 4/5 x per day Patient Interested in Nicotine Replacement: Yes Patient Given Instructions on How to Stop Smoking: Yes Date Education Initiated: 08/29/24 Substance Use Type: Heroin Substance Use Type Other:: sniffs heroin 2-3 bundles/day per pt Substance Use Frequency: Daily Last Used Substance: Hours (ago) Currently Displaying Signs/Symptoms of Drug Intoxication Withdrawal: No Any prior treatment program specific to substance use: No Have you been hit, kicked, punched, or otherwise hurt by someone within the past year? If so, by whom?: No Do you feel safe in your current relationship?: Yes Is there a partner from a previous relationship who is making you feel unsafe now?: No Are you made to feel afraid or neglected: No Baptism Healthcare Practices: Pentocostal Advance Directives: No Advance Directives Information Provided: No Do you have a plan to hurt others: No Plan Recently lost weight without trying: Yes How much weight loss: Unsure Eating poorly because of decreased appetite: Yes Nutrition screen score: 5 Nutrition Risks: No Nutritional Risk Poor oral hygiene: No service: No
--- NOTE | 2024-08-30 10:37 | MHC.CM.PN ---
CM met with Patient at bedside. Patient was able to state his address and PCP's last name and explained that he was staying with a Friend, but cannot return there and plans to live with his Mother. Beyond that, Patient appeared confused and unable to stay on track to answer additional questions appropriately. CM attempted to reach only Contact/Mother May @ [phone], but that # is no longer in services.Patient will benefit from a PT Eval to assist with disposition; CM has initiated and will follow for dc planning. PCP is Dr. Cristina Stover.
[2024-08-30] MEDS: Sodium Zirconium Cyclosilicate 5 GM POWD.PACK PO (11:12)
[2024-08-30] MEDS: methADONE HCl 20 MG/2 ML ORAL.CONC 10 MG PO (11:12)
[2024-08-30 11:57] LABS: Glucose, Whole Blood 212 mg/dL (60-115)
[2024-08-30 12:27] LABS: HBS Num1 7.99 mIU/mL (0-7.99); HBsAGNum1 0.26 S/CO (0.00-0.99); Hepatitis B Core Antibody Nonreactive (Nonreactive); Hepatitis B Surface Antigen Negative (Negative); ~Hepatitis B Surface Antibody NONREACTIVE (Nonreactive)
[2024-08-30 16:48] LABS: Glucose, Whole Blood 173 mg/dL (60-115)
[2024-08-30 20:30] LABS: Glucose, Whole Blood 185 mg/dL (60-115)
[2024-08-30] MEDS: Albuterol/Iprat 2.5/0.5MG 3 ML AMPUL.NEB INHALE (20:59)
[2024-08-31] VITALS (15 sets, daily range): BP systolic 114–140; BP diastolic 60–77; PULSE 71–111; RESP 17–22; TEMP 36–37.3; O2SAT 95–99
[2024-08-31] MEDS: Albuterol/Iprat 2.5/0.5MG 3 ML AMPUL.NEB INHALE ×3 (03:27→16:28)
[2024-08-31] MEDS: Calcium Carbonate 750 MG TAB.CHEW PO ×3 (03:34→12:23)
[2024-08-31] MEDS: Sodium Bicarbonate 8.4% 150 MEQ in Dextrose 5 % 850 ML 100 MEQ IV (03:34)
[2024-08-31] MEDS: oxyCODONE HCl Immed Release 5 MG TABLET PO ×3 (03:40→20:10)
[2024-08-31] MEDS: methADONE HCl 20 MG/2 ML ORAL.CONC 10 MG PO ×4 (04:25→21:09)
[2024-08-31 06:39] LABS: Mean Corpuscular HGB Conc 34.5 g/dl (31.0-36.0); Mean Corpuscular Hemoglobin 28.3 pg (27.0-33.0); Mean Corpuscular Volume 81.9 fL (80.0-98.0); Mean Platelet Volume 10.5 fL (9.4-12.4); Platelet Count 327 X10*3/uL (160-400); Red Blood Count 2.37 X10*6/uL (4.60-5.80); Red Cell Distribution Width 14.9 % (11.0-16.0); White Blood Count 29.1 X10*3/uL (4.8-10.8)
[2024-08-31 06:44] LABS: Parathyroid Hormone Intact 746.2 pg/mL (8.7-77.1)
[2024-08-31 06:49] LABS: Blood Urea Nitrogen 96 mg/dL (9-16); Glucose Fasting 258 mg/dL (60-99); Lactate Dehydrogenase 341 U/L (118-273)
[2024-08-31 07:06] LABS: Glucose, Whole Blood 241 mg/dL (60-115)
[2024-08-31 07:37] LABS: Haptoglobin 300 mg/dL (14-258)
[2024-08-31 07:38] LABS: Hematocrit 19.4 % (42.0-52.0); Hemoglobin 6.7 g/dl (14.0-18.0)
[2024-08-31 07:45] LABS: Anion Gap 19 (12-20); Calcium 5.4 mg/dL (8.4-10.2); Carbon Dioxide 18 mmol/L (22-29); Chloride 100 mmol/L (96-108); Creatinine Clr Calc Pharmacy 20.6; Estimated Glomerular Filt Rate 11; Potassium 4.3 mmol/L (3.3-5.1); Sodium 133 mmol/L (135-145)
--- NOTE | 2024-08-31 07:47 | PM.PROC ---
Brief Operative Note Date of procedure: 08/30/24 Pre-op diagnosis: MERLIN Post-op diagnosis: same Procedure: Right IJ 24 cm Trialysis catheter placed using US and FL. Tip at cavoatrial junction. Ok for use. Anesthesia: local
[2024-08-31 08:16] LABS: Albumin Level 1.5 g/dL (3.5-5.0)
[2024-08-31] MEDS: Nicotine 14 MG PATCH.TD24 TRANSDERMA (08:24)
[2024-08-31] MEDS: Insulin Lispro 100 UNIT/ML 3 ML VIAL SUBCUT ×2 (08:25→20:23)
[2024-08-31] MEDS: Acetaminophen 325 MG TABLET 650 MG PO (08:32)
[2024-08-31] MEDS: Calcium Gluconate/NaCl,Iso-Osm 2 GM/100 ML PLAST..BAG IV (08:49)
[2024-08-31] MEDS: Epoetin Alfa-epbx 10,000 UNIT/ML VIAL 10000 UNIT SUBCUT (09:40)
--- NOTE | 2024-08-31 09:42 | HO.ADDICTPRO ---
Subjective Subjective Date of Service: 08/31/24 Reason For Visit: angelo Interim History: Patient seen in follow up received 2 doses of methadone overnight appearing comfortable, more alert. total 30mg methadone today mother at bedside Review of Systems Constitutional: Reports as per HPI Mental Status Exam Mental Status Exam Level of Consciousness: Awake, Appropriate and Alert Diagnostics Vital Signs (24Hr): Vital Signs - 24 hr 08/30/24 12:00 08/30/24 12:35 08/30/24 16:00 Temperature 97.7 F 97.7 F 97.6 F Pulse Rate 103 H 103 H 105 H Respiratory Rate 20 20 20 Blood Pressure 129/78 129/78 138/72 Pulse Oximetry 99 99 Oxygen Delivery Method Room Air Room Air 08/30/24 19:30 08/30/24 21:02 08/30/24 23:09 Temperature 96.8 F 97.3 F Pulse Rate 104 H 101 H 99 Respiratory Rate 18 18 18 Blood Pressure 127/62 110/56 L Pulse Oximetry 97 98 Oxygen Delivery Method Room Air Room Air 08/31/24 03:27 08/31/24 04:00 08/31/24 06:57 Temperature 96.8 F 97.4 F Pulse Rate 94 71 94 Respiratory Rate 18 18 17 Blood Pressure 131/77 118/60 Pulse Oximetry 95 98 Oxygen Delivery Method Room Air Room Air 08/31/24 09:06 08/31/24 09:23 Temperature 97.9 F 97.7 F Pulse Rate 99 100 Respiratory Rate 20 20 Blood Pressure 114/68 124/72 Pulse Oximetry Oxygen Delivery Method BMI result Body Mass Index 39.8 Labs 09/02/24 05:58 09/02/24 05:58 Labs: Laboratory Results - last 48 hr 08/29/24 08/29/24 08/29/24 13:12 14:03 14:44 WBC 44.1 H* RBC 2.41 L D Hgb 6.4 L* D Hct 19.5 L* D MCV 80.9 MCH 26.6 L MCHC 32.8 RDW 13.9 Plt Count 425 H D MPV 10.7 Immature Gran % (Auto) Cancelled Neut % (Auto) Cancelled Lymph % (Auto) Cancelled [place] % (Auto) Cancelled Eos % (Auto) Cancelled Baso % (Auto) Cancelled Lymph # (Auto) Cancelled [place] # (Auto) Cancelled Eos # (Auto) Cancelled Baso # (Auto) Cancelled Abs Immat Gran (auto) Cancelled Absolute Neuts (auto) Cancelled Absolute Nucleated RBC 0.000 Nucleated RBC % (auto) 0.0 Neutrophils % (Manual) 90 H Band Neutrophils % 8 H Lymphocytes % (Manual) 1 L Monocytes % (Manual) 1 L Abs Neuts (Manual) 43.2 H Lymphocytes # (Manual) 0.4 L Monocytes # (Manual) 0.4 Dohle Bodies PRESENT Platelet Estimate NORMAL Plt Morphology Comment NORMAL RBC Morphology NOTED Polychromasia 1+ (0-2) [place] Cells 1+ (0-2) Smear Tech's Comments MANUAL DIFF Smear Path Review SEE NOTE Hold Blue Top SEE NOTE Sodium 129 L Potassium 5.4 H Chloride 102 Carbon Dioxide 10 L* D Anion Gap 22 H BUN 113 H Creatinine 6.79 H* Estim Creat Clear Calc 17.2 Estimated GFR 9 POC Glucose Random Glucose 76 Fasting Glucose Haptoglobin Lactic Acid 0.8 Calcium 6.3 L D Magnesium Total Bilirubin 0.4 Direct Bilirubin AST 57 H ALT 15 Alkaline Phosphatase 334 H Lactate Dehydrogenase B-Natriuretic Peptide 906 H Total Protein 6.6 Albumin 1.8 L Beta-Hydroxybutyrate 0.27 PTH Intact Urine Color Yellow Urine Appearance Cloudy Urine pH 5.5 Ur Specific [place] 1.015 Urine Protein 300 (3+) H Urine Glucose (UA) Negative Urine Ketones Negative Urine Blood Moderate (2+) H Urine Nitrite Negative Ur Leukocyte Esterase Trace H Urine RBC 0-2 Urine WBC 6-10 H Ur Squamous Epith Cells 0-2 Urine Bacteria None Seen Hyaline Casts 0-2 Stool Occult Blood NEGATIVE Urine Opiates Screen Ur Buprenorphine Scrn Ur Oxycodone Screen Urine Methadone Screen Urine Fentanyl Screen Ur Barbiturates Screen Ur Phencyclidine Scrn Ur Amphetamines Screen U Benzodiazepines Scrn Urine Cocaine Screen U Marijuana (THC) Screen Hep Bs Antigen Hep Bs Antibody Hep B Core Total Ab Blood Type O Positive Antibody Screen NEGATIVE Crossmatch See Detail 08/29/24 08/29/24 08/29/24 16:57 19:21 21:09 WBC RBC Hgb Hct MCV MCH MCHC RDW Plt Count MPV Immature Gran % (Auto) Neut % (Auto) Lymph % (Auto) [place] % (Auto) Eos % (Auto) Baso % (Auto) Lymph # (Auto) [place] # (Auto) Eos # (Auto) Baso # (Auto) Abs Immat Gran (auto) Absolute Neuts (auto) Absolute Nucleated RBC Nucleated RBC % (auto) Neutrophils % (Manual) Band Neutrophils % Lymphocytes % (Manual) Monocytes % (Manual) Abs Neuts (Manual) Lymphocytes # (Manual) Monocytes # (Manual) Dohle Bodies Platelet Estimate Plt Morphology Comment RBC Morphology Polychromasia [place] Cells Smear Tech's Comments Smear Path Review Hold Blue Top Sodium Potassium Chloride Carbon Dioxide Anion Gap BUN Creatinine Estim Creat Clear Calc Estimated GFR POC Glucose 122 H 148 H Random Glucose Fasting Glucose Haptoglobin Lactic Acid Calcium Magnesium Total Bilirubin Direct Bilirubin AST ALT Alkaline Phosphatase Lactate Dehydrogenase 307 H B-Natriuretic Peptide Total Protein Albumin Beta-Hydroxybutyrate PTH Intact Urine Color Urine Appearance Urine pH Ur Specific [place] Urine Protein Urine Glucose (UA) Urine Ketones Urine Blood Urine Nitrite Ur Leukocyte Esterase Urine RBC Urine WBC Ur Squamous Epith Cells Urine Bacteria Hyaline Casts Stool Occult Blood Urine Opiates Screen Ur Buprenorphine Scrn Ur Oxycodone Screen Urine Methadone Screen Urine Fentanyl Screen Ur Barbiturates Screen Ur Phencyclidine Scrn Ur Amphetamines Screen U Benzodiazepines Scrn Urine Cocaine Screen U Marijuana (THC) Screen Hep Bs Antigen Hep Bs Antibody Hep B Core Total Ab Blood Type Antibody Screen Crossmatch 08/30/24 08/30/24 08/30/24 05:37 07:33 09:26 WBC 36.2 H* RBC 2.47 L Hgb 6.7 L* Hct 20.5 L* MCV 83.0 MCH 27.1 MCHC 32.7 RDW 14.1 Plt Count 374 MPV 10.7 Immature Gran % (Auto) Neut % (Auto) Lymph % (Auto) [place] % (Auto) Eos % (Auto) Baso % (Auto) Lymph # (Auto) [place] # (Auto) Eos # (Auto) Baso # (Auto) Abs Immat Gran (auto) Absolute Neuts (auto) Absolute Nucleated RBC 0.000 Nucleated RBC % (auto) 0.0 Neutrophils % (Manual) Band Neutrophils % Lymphocytes % (Manual) Monocytes % (Manual) Abs Neuts (Manual) Lymphocytes # (Manual) Monocytes # (Manual) Dohle Bodies Platelet Estimate Plt Morphology Comment RBC Morphology Polychromasia [place] Cells Smear Tech's Comments Smear Path Review Hold Blue Top Sodium 131 L Potassium 5.4 H Chloride 102 Carbon Dioxide 13 L Anion Gap 21 H BUN 115 H Creatinine 7.10 H* Estim Creat Clear Calc 16.7 Estimated GFR 8 POC Glucose 199 H Random Glucose Fasting Glucose 201 H Haptoglobin Lactic Acid Calcium 5.9 L* D Magnesium 1.8 Total Bilirubin 0.6 Direct Bilirubin 0.5 AST 64 H ALT 17 Alkaline Phosphatase 484 H Lactate Dehydrogenase B-Natriuretic Peptide Total Protein 6.1 L Albumin 1.7 L Beta-Hydroxybutyrate PTH Intact Urine Color Urine Appearance Urine pH Ur Specific [place] Urine Protein Urine Glucose (UA) Urine Ketones Urine Blood Urine Nitrite Ur Leukocyte Esterase Urine RBC Urine WBC Ur Squamous Epith Cells Urine Bacteria Hyaline Casts Stool Occult Blood Urine Opiates Screen POSITIVE H Ur Buprenorphine Scrn Not Detected Ur Oxycodone Screen Positive H Urine Methadone Screen Not Detected Urine Fentanyl Screen POSITIVE H Ur Barbiturates Screen Not Detected Ur Phencyclidine Scrn Not Detected Ur Amphetamines Screen Not Detected U Benzodiazepines Scrn Not Detected Urine Cocaine Screen POSITIVE H U Marijuana (THC) Screen Not Detected Hep Bs Antigen Hep Bs Antibody Hep B Core Total Ab Blood Type Antibody Screen Crossmatch 08/30/24 08/30/24 08/30/24 11:08 11:50 16:43 WBC RBC Hgb Hct MCV MCH MCHC RDW Plt Count MPV Immature Gran % (Auto) Neut % (Auto) Lymph % (Auto) [place] % (Auto) Eos % (Auto) Baso % (Auto) Lymph # (Auto) [place] # (Auto) Eos # (Auto) Baso # (Auto) Abs Immat Gran (auto) Absolute Neuts (auto) Absolute Nucleated RBC Nucleated RBC % (auto) Neutrophils % (Manual) Band Neutrophils % Lymphocytes % (Manual) Monocytes % (Manual) Abs Neuts (Manual) Lymphocytes # (Manual) Monocytes # (Manual) Dohle Bodies Platelet Estimate Plt Morphology Comment RBC Morphology Polychromasia [place] Cells Smear Tech's Comments Smear Path Review Hold Blue Top Sodium Potassium Chloride Carbon Dioxide Anion Gap BUN Creatinine Estim Creat Clear Calc Estimated GFR POC Glucose 212 H 173 H Random Glucose Fasting Glucose Haptoglobin Lactic Acid Calcium Magnesium Total Bilirubin Direct Bilirubin AST ALT Alkaline Phosphatase Lactate Dehydrogenase B-Natriuretic Peptide Total Protein Albumin Beta-Hydroxybutyrate PTH Intact Urine Color Urine Appearance Urine pH Ur Specific [place] Urine Protein Urine Glucose (UA) Urine Ketones Urine Blood Urine Nitrite Ur Leukocyte Esterase Urine RBC Urine WBC Ur Squamous Epith Cells Urine Bacteria Hyaline Casts Stool Occult Blood Urine Opiates Screen Ur Buprenorphine Scrn Ur Oxycodone Screen Urine Methadone Screen Urine Fentanyl Screen Ur Barbiturates Screen Ur Phencyclidine Scrn Ur Amphetamines Screen U Benzodiazepines Scrn Urine Cocaine Screen U Marijuana (THC) Screen Hep Bs Antigen Negative Hep Bs Antibody NONREACTIVE Hep B Core Total Ab Nonreactive Blood Type Antibody Screen Crossmatch 08/30/24 08/31/24 08/31/24 20:23 06:15 07:03 WBC 29.1 H RBC 2.37 L Hgb 6.7 L* Hct 19.4 L* MCV 81.9 MCH 28.3 MCHC 34.5 RDW 14.9 Plt Count 327 MPV 10.5 Immature Gran % (Auto) Neut % (Auto) Lymph % (Auto) [place] % (Auto) Eos % (Auto) Baso % (Auto) Lymph # (Auto) [place] # (Auto) Eos # (Auto) Baso # (Auto) Abs Immat Gran (auto) Absolute Neuts (auto) Absolute Nucleated RBC 0.000 Nucleated RBC % (auto) 0.0 Neutrophils % (Manual) Band Neutrophils % Lymphocytes % (Manual) Monocytes % (Manual) Abs Neuts (Manual) Lymphocytes # (Manual) Monocytes # (Manual) Dohle Bodies Platelet Estimate Plt Morphology Comment RBC Morphology Polychromasia [place] Cells Smear Tech's Comments Smear Path Review Hold Blue Top Sodium 133 L Potassium 4.3 D Chloride 100 Carbon Dioxide 18 L Anion Gap 19 BUN 96 H Creatinine 5.76 H* Estim Creat Clear Calc 20.6 Estimated GFR 11 POC Glucose 185 H 241 H Random Glucose Fasting Glucose 258 H Haptoglobin 300 H Lactic Acid Calcium 5.4 L* D Magnesium Total Bilirubin Direct Bilirubin AST ALT Alkaline Phosphatase Lactate Dehydrogenase 341 H B-Natriuretic Peptide Total Protein Albumin 1.5 L Beta-Hydroxybutyrate PTH Intact 746.2 H Urine Color Urine Appearance Urine pH Ur Specific [place] Urine Protein Urine Glucose (UA) Urine Ketones Urine Blood Urine Nitrite Ur Leukocyte Esterase Urine RBC Urine WBC Ur Squamous Epith Cells Urine Bacteria Hyaline Casts Stool Occult Blood Urine Opiates Screen Ur Buprenorphine Scrn Ur Oxycodone Screen Urine Methadone Screen Urine Fentanyl Screen Ur Barbiturates Screen Ur Phencyclidine Scrn Ur Amphetamines Screen U Benzodiazepines Scrn Urine Cocaine Screen U Marijuana (THC) Screen Hep Bs Antigen Hep Bs Antibody Hep B Core Total Ab Blood Type Antibody Screen Crossmatch Imaging Radiology Impressions: ITS Impressions KUB X-Ray 08/29/24 13:25 IMPRESSION: 1. Prominent fecal loading of the ascending colon greatest along its proximal segment measuring up to 10.8 cm. 2. There is air-filled dilatation of the remaining colon measuring up to 8.4 cm. Electronically signed by: Angeles Galeas MD 08/29/2024 01:41 PM EDT RP Chest X-Ray 08/29/24 13:54 IMPRESSION: 1. Bronchial thickening suggesting infectious/inflammatory etiology. 2. Elevation right hemidiaphragm. 3. Left basilar atelectasis. Electronically signed by: Angeles Galeas MD 08/29/2024 03:07 PM EDT RP Abdomen/Pelvis CT 08/29/24 15:18 IMPRESSION: 1. No hydronephrosis. 2. Partially visualized patchy opacities in bilateral lung bases which may represent edema or infection. 3. Diffuse anasarca. Fleischner guidelines were followed. Electronically signed by: Mike Galan MD 08/29/2024 03:39 PM EDT RP Medications Medications Current Medications Acetaminophen (Acetaminophen 325 Mg Tablet) 650 mg PO Q6H PRN PRN Reason: Pain, Mild (Pain Scale 1-3), fever or headache Last Admin: 08/31/24 08:32 Dose: 650 mg Albuterol/Ipratropium (Albuterol/Iprat 2.5/0.5mg 3 Ml Ampul.Neb) 3 ml INHALE Q4H PRN PRN Reason: Wheezing Last Admin: 08/31/24 03:27 Dose: 3 ml Calcium Carbonate (Calcium Carbonate 750 Mg Tab.Chew) 750 mg PO Q4H PRN PRN Reason: Heartburn Last Admin: 08/31/24 08:32 Dose: 750 mg Glucose (Glucose Gel 15 Gm Gel..Gram.) 15 gm PO Q15M PRN; Protocol PRN Reason: per Hypoglycemia Standing Ord. Dextrose (D10) 250 mls @ 750 mls/hr IV Q15M PRN; Protocol PRN Reason: per Hypoglycemia Standing Ord. Sodium Bicarbonate 150 meq/ (Dextrose) 1,000 mls @ 100 mls/hr IV .Q10H LYSSA Last Admin: 08/31/24 03:34 Dose: 100 mls/hr Calcium Gluconate (Calcium Gluconate) 2 gm in 100 mls @ 50 mls/hr IV ONCE ONE Stop: 08/31/24 09:59 Last Admin: 08/31/24 08:49 Dose: 50 mls/hr Insulin Human Lispro (Insulin Lispro 100 Unit/Ml 3 Ml Vial) 0 unit SUBCUT QIDACHS [facility]; Protocol Last Admin: 08/31/24 08:25 Dose: 4 unit Melatonin (Melatonin 3 Mg Tablet) 6 mg PO BEDTIME PRN PRN Reason: Insomnia Methadone HCl (Methadone Hcl 20 Mg/2 Ml Oral.Conc) 10 mg PO Q3H PRN PRN Reason: Opiate Withdrawal Last Admin: 08/31/24 08:32 Dose: 10 mg Nicotine (Nicotine 14 Mg Patch.Td24) 14 mg TRANSDERMA DAILY [facility] Last Admin: 08/31/24 08:24 Dose: 14 mg Oxycodone HCl (Oxycodone Hcl Immed Release 5 Mg Tablet) 5 mg PO Q8H PRN PRN Reason: Pain, Severe (Pain Scale 7-10) Last Admin: 08/31/24 03:40 Dose: 5 mg Sodium Chloride (0.9 % Sodium Chloride Flush 3 Ml Syringe) [facility] Last Admin: 08/30/24 20:46 Dose: 3 ml Allergies Allergies Allergy/AdvReac Type Severity Reaction Status Date / Time No Known Allergies Allergy Verified 08/29/24 13:00 [No Known Allergies*] Assessment & Plan Assessment & Plan (1) Opioid use disorder, severe, dependence: Status: Acute Code(s): F11.20 - Opioid dependence, uncomplicated Assessment and Plan: methadone 40mg QD in AM will continue to follow Total time managing care of this patient today ____ minutes.
[2024-08-31] MEDS: 0.9 % Sodium Chloride Flush 3 ML SYRINGE IVFLUSH ×2 (09:48→23:47)
[2024-08-31] MEDS: methADONE HCl 20 MG/2 ML ORAL.CONC PO (10:22)
--- NOTE | 2024-08-31 10:42 | P.PNNP_ITS ---
Subjective Subjective Date of Service: 08/31/24 Interval history: 44 y/o male with a medical history of HTN, HLD, CKD3, polysubstance dependence, PVD. 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 He presented on 08/29 with weakness, abdominal bloating, lower extremity edema/pain. creatinine 6.79 on 08/29 (previous creatinine 2.02 from 1 year ago), 08/30 increased to 7.10 potassium 5.4 on 08/29, 5.4 08/30, received lokelma on 08/29, potassium 4.3 on 08/31 s/p HD sodium 129 08/29, 131 08/30, 133 08/31 serum bicarb 10 on 08/29, 13 on 08/30, 18 on 08/31 (s/p HD, bicarb gtt discontinued). CT abd/pelvis on 08/29 showed no hydronephrosis, kidneys/ureters unremarkable, showed diffuse anasarca and pulmonary edema pt had right IJ trialysis catheter placed by IR 08/30, received HD 08/30 after catheter placement Patient today is alert and oriented states his breathing is more comfortable today denies chest pain, abdominal pain, flank pain states swelling has improved in his lower extremities patient reports he has been having bad muscle cramping denies pruritus, nausea, vomiting states yesterday he had some jerking/tremors before HD, denies today Physical Exam 2 Vital Signs: Vital Signs: Last Vital Signs Temp 97.7 F 08/31/24 09:23 Pulse 102 H 08/31/24 10:19 Resp 17 08/31/24 10:19 BP 124/72 08/31/24 09:23 Pulse Ox 98 08/31/24 06:57 O2 Del Method Room Air 08/31/24 06:57 O2 Flow Rate 2 08/30/24 02:00 BMI result Body Mass Index 39.8 Const: General: no acute distress, alert and awake Resp: Effort & Inspection: normal respiratory effort Auscultation: clear to auscultation bilaterally Cardio: Jugular venous distension: no JVD Rate: regular rate Rhythm: r egular rhythm Heart sounds: S1 normal heart sound present and S2 normal heart sound present GI: Palpation (GI): Soft to palpation, Tenderness to palpation present (GI) (tender to palpation of lower abdomen edematous) and Other GI palpation findings present (pitting edema lower abdomen) : General: Yes no CVA tenderness Back/Spine/Pelvis: Back: no CVA tenderness Skin: Lesions: no lesions Rashes: no rashes Neuro: General: moves all extremities Motor exam (neuro): no tremor noted, no asterixis, Motor abnormalites present and Other motor observations present (patient had episode of full-body, transient jerk x1 during examination) Extrem: General: Yes edema (pitting edema lower extremities) Objective Data Labs 08/31/24 06:15 08/31/24 06:15 Labs: Laboratory Results - last 24 hr 08/29/24 08/30/24 08/30/24 14:03 11:08 11:50 WBC RBC Hgb Hct MCV MCH MCHC RDW Plt Count MPV Absolute Nucleated RBC Nucleated RBC % (auto) Sodium Potassium Chloride Carbon Dioxide Anion Gap BUN Creatinine Estim Creat Clear Calc Estimated GFR POC Glucose 212 H Fasting Glucose Haptoglobin Calcium Lactate Dehydrogenase Albumin PTH Intact Hep Bs Antigen Negative Hep Bs Antibody NONREACTIVE Hep B Core Total Ab Nonreactive Blood Type O Positive Antibody Screen NEGATIVE Crossmatch See Detail 08/30/24 08/30/24 08/31/24 16:43 20:23 06:15 WBC 29.1 H RBC 2.37 L Hgb 6.7 L* Hct 19.4 L* MCV 81.9 MCH 28.3 MCHC 34.5 RDW 14.9 Plt Count 327 MPV 10.5 Absolute Nucleated RBC 0.000 Nucleated RBC % (auto) 0.0 Sodium 133 L Potassium 4.3 D Chloride 100 Carbon Dioxide 18 L Anion Gap 19 BUN 96 H Creatinine 5.76 H* Estim Creat Clear Calc 20.6 Estimated GFR 11 POC Glucose 173 H 185 H Fasting Glucose 258 H Haptoglobin 300 H Calcium 5.4 L* D Lactate Dehydrogenase 341 H Albumin 1.5 L PTH Intact 746.2 H Hep Bs Antigen Hep Bs Antibody Hep B Core Total Ab Blood Type Antibody Screen Crossmatch 08/31/24 07:03 WBC RBC Hgb Hct MCV MCH MCHC RDW Plt Count MPV Absolute Nucleated RBC Nucleated RBC % (auto) Sodium Potassium Chloride Carbon Dioxide Anion Gap BUN Creatinine Estim Creat Clear Calc Estimated GFR POC Glucose 241 H Fasting Glucose Haptoglobin Calcium Lactate Dehydrogenase Albumin PTH Intact Hep Bs Antigen Hep Bs Antibody Hep B Core Total Ab Blood Type Antibody Screen Crossmatch Microbiology Microbiology Results: Microbiology 08/29/24 14:03 Blood - Venous Blood Culture - Preliminary No growth after 24 hours. 08/29/24 14:03 Blood - Venous Blood Culture - Preliminary No growth after 24 hours. 08/29/24 Unknown Urine clean catch - Clean Catch Midstream Urine Culture - Final No growth. Procedures Date of Service Date of Service: 08/31/24 Assessment & Plan Assessment and plan (1) Acute renal failure: Status: Acute (2) MERLIN (acute kidney injury): Status: Acute (3) CKD (chronic kidney disease) stage 3, GFR 30-59 ml/min: Status: Acute Plan Patient with MERLIN on CKD vs natural progression of underlying disease Patient has tested positive for cocaine, differential includes cocaine-induced injury No signs of uremia today, though remains acidotic, oliguric - will get HD today pt had right IJ trialysis catheter placed by IR 08/30, received HD 08/30 after catheter placement H&H is low, likely related to CKD, will administer 10,000 units of epogen with HD today PTH elevated, will start calcitriol corrected calcium 7.74 will check phosphorous level patient remains fluid-overloaded, will remove 1-2kg Will need renal biopsy, will hold for now as H&H is very low Ok to d/c bicarbonate drip now that patient is receiving HD Continue close monitoring of electrolytes, blood pressure, urine output Will continue to follow closely Discussed with Dr Yañez Time Spent With Patient Time: Total time managing care of this patient today ____ minutes. Progress Note: Quality Stroke Does the patient have a stroke diagnosis?: No
[2024-08-31] MEDS: ondansetron HCL 4 MG/2 ML VIAL IVPUSH (11:09)
[2024-08-31 11:13] LABS: Glucose, Whole Blood 184 mg/dL (60-115)
--- NOTE | 2024-08-31 12:44 | HO.PM.IMPN ---
Subjective Subjective Date of Service: 08/31/24 Interval History: Seen and evaluated this morning Feels better as swelling going down Creatinine improving , tolerated HD Ca too low , corrected 7.7 No other overnight events Review of Systems Review of Systems: Yes all other systems are reviewed and are negative Physical Exam Vital Signs: Vital Signs: Last Vital Signs Temp 98.2 F 08/31/24 12:23 Pulse 107 H 08/31/24 12:23 Resp 22 H 08/31/24 12:23 BP 140/75 H 08/31/24 12:23 Pulse Ox 98 08/31/24 06:57 O2 Del Method Room Air 08/31/24 06:57 O2 Flow Rate 2 08/30/24 02:00 BMI result Body Mass Index 39.8 Const: Other: Constitutional : Awake, interactive, not in distress Neck : Normal inspection, Supple Cardiovascular : RRR, no JVP, no lower extremity edema Respiratory : good bilateral air entry, no crackles, wheezes or rhonchi Gastrointestinal: soft, lax, Normal bowel sounds, Non tender Skin : Warm, Dry, multiple skin picking gabriel, BKA right, LLE callus with dry skin, Dialysis catheter in place , Neurological : Alert & oriented x3, No focal deficit Objective Data Active Medications Acetaminophen (Acetaminophen 325 Mg Tablet) 650 mg PO Q6H PRN PRN Reason: Pain, Mild (Pain Scale 1-3), fever or headache Last Admin: 08/31/24 08:32 Dose: 650 mg Documented By: DENNY Albuterol/Ipratropium (Albuterol/Iprat 2.5/0.5mg 3 Ml Ampul.Neb) 3 ml INHALE Q4H PRN PRN Reason: Wheezing Last Admin: 08/31/24 10:19 Dose: 3 ml Documented By: GARY Calcitriol (Calcitriol 0.25 Mcg Capsule) 0.25 mcg PO DAILY LYSSA Calcium Carbonate (Calcium Carbonate 750 Mg Tab.Chew) 750 mg PO Q4H PRN PRN Reason: Heartburn Last Admin: 08/31/24 12:23 Dose: 750 mg Documented By: DENNY Docusate Sodium (Docusate Sodium 100 Mg Capsule) 100 mg PO BID LYSSA Last Admin: 08/31/24 11:03 Dose: Not Given Documented By: DENNY Non-Admin Reason: Patient Refused Glucose (Glucose Gel 15 Gm Gel..Gram.) 15 gm PO Q15M PRN; Protocol PRN Reason: per Hypoglycemia Standing Ord. Dextrose (D10) 250 mls @ 750 mls/hr IV Q15M PRN; Protocol PRN Reason: per Hypoglycemia Standing Ord. Insulin Human Lispro (Insulin Lispro 100 Unit/Ml 3 Ml Vial) 0 unit SUBCUT QIDACHS [facility]; Protocol Last Admin: 08/31/24 11:23 Dose: Not Given Documented By: DENNY Non-Admin Reason: Nausea Lactulose (Lactulose 20 Gm/30 Ml Solution) 20 gm PO BID [facility] Last Admin: 08/31/24 11:03 Dose: Not Given Documented By: DENNY Non-Admin Reason: Patient Refused Melatonin (Melatonin 3 Mg Tablet) 6 mg PO BEDTIME PRN PRN Reason: Insomnia Methadone HCl (Methadone Hcl 20 Mg/2 Ml Oral.Conc) 10 mg PO Q3H PRN PRN Reason: Opiate Withdrawal Last Admin: 08/31/24 08:32 Dose: 10 mg Documented By: DENNY Co-signed By: ABEL Nicotine (Nicotine 14 Mg Patch.Td24) 14 mg TRANSDERMA DAILY [facility] Last Admin: 08/31/24 08:24 Dose: 14 mg Documented By: DENNY Ondansetron HCl (Ondansetron Hcl 4 Mg/2 Ml Vial) 4 mg IVPUSH Q8H PRN PRN Reason: Nausea and Vomiting Last Admin: 08/31/24 11:09 Dose: 4 mg Documented By: DENNY Oxycodone HCl (Oxycodone Hcl Immed Release 5 Mg Tablet) 5 mg PO Q8H PRN PRN Reason: Pain, Severe (Pain Scale 7-10) Last Admin: 08/31/24 11:17 Dose: 5 mg Documented By: DENNY Sodium Chloride (0.9 % Sodium Chloride Flush 3 Ml Syringe) [facility] Last Admin: 08/31/24 09:48 Dose: 3 ml Documented By: DENNY Labs 08/31/24 06:15 08/31/24 06:15 Labs: Laboratory Results - last 24 hr 08/29/24 08/30/24 08/30/24 14:03 16:43 20:23 MCV MCH MCHC RDW Plt Count MPV Absolute Nucleated RBC Nucleated RBC % (auto) Anion Gap Estim Creat Clear Calc Estimated GFR POC Glucose 173 H 185 H Fasting Glucose Haptoglobin Calcium Lactate Dehydrogenase Albumin PTH Intact Blood Type O Positive Antibody Screen NEGATIVE Crossmatch See Detail 08/31/24 08/31/24 08/31/24 06:15 07:03 11:05 MCV 81.9 MCH 28.3 MCHC 34.5 RDW 14.9 Plt Count 327 MPV 10.5 Absolute Nucleated RBC 0.000 Nucleated RBC % (auto) 0.0 Anion Gap 19 Estim Creat Clear Calc 20.6 Estimated GFR 11 POC Glucose 241 H 184 H Fasting Glucose 258 H Haptoglobin 300 H Calcium 5.4 L* D Lactate Dehydrogenase 341 H Albumin 1.5 L PTH Intact 746.2 H Blood Type Antibody Screen Crossmatch Microbiology Microbiology Results: Microbiology 08/29/24 14:03 Blood Culture - Preliminary Blood - Venous No growth after 24 hours. 08/29/24 14:03 Blood Culture - Preliminary Blood - Venous No growth after 24 hours. 08/29/24 Unknown Urine Culture - Final Urine clean catch - Clean Catch Midstream No growth. Assessment and Plan (1) Opioid use disorder, severe, dependence: Status: Acute (2) Hyperglycemia due to type 2 diabetes mellitus: Status: Acute (3) Acute renal failure: Status: Acute (4) Leukocytosis: Status: Acute (5) Anemia: Status: Acute Plan 44M PMH hypertension, hyperlipidemia, diabetes, CKD 3, polysubstance dependence, history of peripheral vascular disease presented with weakness found to have merlin, anemia, leukocysotis, acidosis acute metabolic encephalopathy due to uremic encephalopathy due to MERLIN on CKD 3 complicated by acute metabolic acidosis, metnation improving DC Sodium bicarb infusion Pending vasculitis panel, SPEP UPEP, nephrology eval follow-up CBC, follow-up BMP catheter placement 08/30/24 and started dialysis Nephrology input appreciated, will likely need kidney biopsy Acute on chronic anemia with Leukocytosis no clear source of infection, no sepsis Question leukemoid reaction or underlying malignancy Anemia of chronic diseases? Inflammatory? Elevated LDH, Haptoglobin to transfused additional unit PRBC, 3rd unit for Hb of 6.7 hematology input appreciated, 10,000 units of epogen with HD today Acute hypocalcemia corrected at 7.7 replacement given Elevated PTH, start Calcitriol Diabetes Insulin sliding scale Hypertension Hold BP meds for now DVT prophylaxis-mechanical due to severe anemia Full code reason for continued hospitalization:severe merlin requiring Dialysis, blood trnasfusion Quality Stroke Does the patient have a stroke diagnosis?: No VTE Prior VTE?: No VTE Risk Level:: Medical - moderate - high VTE Device Contraindication: N/A - Device Ordered VTE Drug Contraindication: Treatment Not Indicated
--- NOTE | 2024-08-31 13:01 | P.CONGS_ITS ---
History of Present Illness Consult details Consult date: 08/31/24 Narrative: 44-year-old male with multiple medical problems including chronic kidney disease, peripheral vascular disease, diabetes, polysubstance dependence, admitted on 08/29/2024 because of abdominal pain, lower extremity pain and was noted to be in acute kidney failure with acidosis. He was also having uremic encephalopathy. He therefore underwent dialysis yesterday. He has history of BKA on the right and transmetatarsal amputation of the left foot for gangrene in the past. He was noted to have a very thick callus on the tip of the amputation site on the left foot. I was therefore consulted He did describe some pain on this left foot recently. He is currently on hemodialysis again. Review of Systems 2 Constitutional: Constitutional: Reports chills and Denies fever(s) Cardiovascular: Cardiovascular: Denies dyspnea and Reports dyspnea on exertion Respiratory: Respiratory: Denies dyspnea and Reports dyspnea on exertion Gastrointestinal: Gastrointestinal: Reports abdominal pain and Reports constipation Genitourinary: Genitourinary: Denies difficulty urinating PMFSH Past Medical History Medical History Constipation Callus of foot Seizure Polysubstance abuse CKD (chronic kidney disease) stage 3, GFR 30-59 ml/min Foot osteomyelitis, left Amputation of toe of right foot Diabetic ulcer of right foot Hyperglycemia due to type 2 diabetes mellitus Renal failure Sleep apnea Diabetes HTN (hypertension) Surgical History Surgical History History of surgical procedure (~04/24/23) Social History Social History Household Members: Spouse and Family Household Members Other:: Pt and live with his mother Housing: Apartment Do you presently have visiting nurse or other home services: No Alcohol intake: never Comment: mother at bedside Patient Tobacco Use Status: Current everyday Tobacco user Tobacco use type: Cigarette Years Smoked: 33 Smoked in Last 30 Days: Yes e-Cigarette/Vaping Use: Currently Using Frequency of e-Cigarette/Vaping Use: 4/5 x per day Patient Interested in Nicotine Replacement: Yes Patient Given Instructions on How to Stop Smoking: Yes Date Education Initiated: 08/29/24 Substance Use Type: Heroin Substance Use Type Other:: sniffs heroin 2-3 bundles/day per pt Substance Use Frequency: Daily Last Used Substance: Hours (ago) Currently Displaying Signs/Symptoms of Drug Intoxication Withdrawal: No Any prior treatment program specific to substance use: No Have you been hit, kicked, punched, or otherwise hurt by someone within the past year? If so, by whom?: No Do you feel safe in your current relationship?: Yes Is there a partner from a previous relationship who is making you feel unsafe now?: No Are you made to feel afraid or neglected: No [facility] Healthcare Practices: [employer] Advance Directives: No Advance Directives Information Provided: No Do you have a plan to hurt others: No Plan Recently lost weight without trying: Yes How much weight loss: Unsure Eating poorly because of decreased appetite: Yes Nutrition screen score: 5 Nutrition Risks: No Nutritional Risk Poor oral hygiene: No service: No Meds Allergies Allergy/AdvReac Type Severity Reaction Status Date / Time No Known Allergies Allergy Verified 08/29/24 13:00 [No Known Allergies*] Active Medications: Current Medications Acetaminophen (Acetaminophen 325 Mg Tablet) 650 mg PO Q6H PRN PRN Reason: Pain, Mild (Pain Scale 1-3), fever or headache Last Admin: 08/31/24 08:32 Dose: 650 mg Albuterol/Ipratropium (Albuterol/Iprat 2.5/0.5mg 3 Ml Ampul.Neb) 3 ml INHALE Q4H PRN PRN Reason: Wheezing Last Admin: 08/31/24 10:19 Dose: 3 ml Calcitriol (Calcitriol 0.25 Mcg Capsule) 0.25 mcg PO DAILY [facility] Calcium Carbonate (Calcium Carbonate 750 Mg Tab.Chew) 750 mg PO Q4H PRN PRN Reason: Heartburn Last Admin: 08/31/24 12:23 Dose: 750 mg Docusate Sodium (Docusate Sodium 100 Mg Capsule) 100 mg PO BID LYSSA Last Admin: 08/31/24 11:03 Dose: Not Given Glucose (Glucose Gel 15 Gm Gel..Gram.) 15 gm PO Q15M PRN; Protocol PRN Reason: per Hypoglycemia Standing Ord. Dextrose (D10) 250 mls @ 750 mls/hr IV Q15M PRN; Protocol PRN Reason: per Hypoglycemia Standing Ord. Insulin Human Lispro (Insulin Lispro 100 Unit/Ml 3 Ml Vial) 0 unit SUBCUT QIDACHS [facility]; Protocol Last Admin: 08/31/24 11:23 Dose: Not Given Lactulose (Lactulose 20 Gm/30 Ml Solution) 20 gm PO BID [facility] Last Admin: 08/31/24 11:03 Dose: Not Given Melatonin (Melatonin 3 Mg Tablet) 6 mg PO BEDTIME PRN PRN Reason: Insomnia Methadone HCl (Methadone Hcl 20 Mg/2 Ml Oral.Conc) 10 mg PO Q3H PRN PRN Reason: Opiate Withdrawal Last Admin: 08/31/24 08:32 Dose: 10 mg Nicotine (Nicotine 14 Mg Patch.Td24) 14 mg TRANSDERMA DAILY [facility] Last Admin: 08/31/24 08:24 Dose: 14 mg Ondansetron HCl (Ondansetron Hcl 4 Mg/2 Ml Vial) 4 mg IVPUSH Q8H PRN PRN Reason: Nausea and Vomiting Last Admin: 08/31/24 11:09 Dose: 4 mg Oxycodone HCl (Oxycodone Hcl Immed Release 5 Mg Tablet) 5 mg PO Q8H PRN PRN Reason: Pain, Severe (Pain Scale 7-10) Last Admin: 08/31/24 11:17 Dose: 5 mg Sodium Chloride (0.9 % Sodium Chloride Flush 3 Ml Syringe) [facility] Last Admin: 08/31/24 09:48 Dose: 3 ml Physical Exam 2 Vital Signs: Vital Signs: Last Vital Signs Temp 98.2 F 08/31/24 12:23 Pulse 107 H 08/31/24 12:23 Resp 22 H 08/31/24 12:23 BP 140/75 H 08/31/24 12:23 Pulse Ox 98 08/31/24 06:57 O2 Del Method Room Air 08/31/24 06:57 O2 Flow Rate 2 08/30/24 02:00 BMI result Body Mass Index 39.8 Const: Other: Currently negative, appears comfortable, undergoing hemodialysis General: comfortable and no acute distress Resp: Effort & Inspection: normal respiratory effort Cardio: Rate: tachycardic GI: Palpation (GI): Soft to palpation, not firm, Tenderness to palpation present (GI) (Mild diffuse tenderness) and no guarding Extrem: Other: BKA of the right, stump appears healthy Transmetatarsal amputation on the left foot, he had a very thick callus along the amputation site especially medially, no open wound, no discharge Results Labs 09/02/24 05:58 09/02/24 05:58 Labs: Abnormal lab results 08/29/24 08/30/24 08/30/24 Range/Units 14:03 16:43 20:23 WBC (4.8-10.8) X10*3/uL RBC (4.60-5.80) X10*6/uL Hgb (14.0-18.0) g/dl Hct (42.0-52.0) % Sodium (135-145) mmol/L Carbon Dioxide (22-29) mmol/L BUN (9-16) mg/dL Creatinine (0.5-1.4) mg/dL POC Glucose 173 H 185 H (60-115) mg/dL Fasting Glucose (60-99) mg/dL Haptoglobin (14-258) mg/dL Calcium (8.4-10.2) mg/dL Lactate Dehydrogenase (118-273) U/L Albumin (3.5-5.0) g/dL PTH Intact (8.7-77.1) pg/mL Crossmatch See Detail 08/31/24 08/31/24 08/31/24 Range/Units 06:15 07:03 11:05 WBC 29.1 H (4.8-10.8) X10*3/uL RBC 2.37 L (4.60-5.80) X10*6/uL Hgb 6.7 L* (14.0-18.0) g/dl Hct 19.4 L* (42.0-52.0) % Sodium 133 L (135-145) mmol/L Carbon Dioxide 18 L (22-29) mmol/L BUN 96 H (9-16) mg/dL Creatinine 5.76 H* (0.5-1.4) mg/dL POC Glucose 241 H 184 H (60-115) mg/dL Fasting Glucose 258 H (60-99) mg/dL Haptoglobin 300 H (14-258) mg/dL Calcium 5.4 L* D (8.4-10.2) mg/dL Lactate Dehydrogenase 341 H (118-273) U/L Albumin 1.5 L (3.5-5.0) g/dL PTH Intact 746.2 H (8.7-77.1) pg/mL Crossmatch Short CBC 08/31/24 Range/Units 06:15 WBC 29.1 H (4.8-10.8) X10*3/uL Hgb 6.7 L* (14.0-18.0) g/dl Hct 19.4 L* (42.0-52.0) % Plt Count 327 (160-400) X10*3/uL BMP 08/31/24 06:15 Sodium 133 L Potassium 4.3 D Chloride 100 Carbon Dioxide 18 L BUN 96 H Creatinine 5.76 H* Calcium 5.4 L* D Liver Function 08/31/24 Range/Units 06:15 Albumin 1.5 L (3.5-5.0) g/dL Urine 08/29/24 Range/Units 14:44 Urine Color Yellow Urine Appearance Cloudy Urine pH 5.5 (5.0-9.0) Ur Specific [place] 1.015 (1.005-1.025) Urine Protein 300 (3+) H (Neg-Trace) mg/dL Urine Glucose (UA) Negative (Negative) mg/dL All other labs normal. Laboratory Results WBC 29.1 X10*3/uL (4.8-10.8) H 08/31/24 06:15 RBC 2.37 X10*6/uL (4.60-5.80) L 08/31/24 06:15 Hgb 6.7 g/dl (14.0-18.0) L* 08/31/24 06:15 Hct 19.4 % (42.0-52.0) L* 08/31/24 06:15 MCV 81.9 fL (80.0-98.0) 08/31/24 06:15 MCH 28.3 pg (27.0-33.0) 08/31/24 06:15 MCHC 34.5 g/dl (31.0-36.0) 08/31/24 06:15 RDW 14.9 % (11.0-16.0) 08/31/24 06:15 Plt Count 327 X10*3/uL (160-400) 08/31/24 06:15 MPV 10.5 fL (9.4-12.4) 08/31/24 06:15 Immature Gran % (Auto) Cancelled 08/29/24 13:12 Neut % (Auto) Cancelled 08/29/24 13:12 Lymph % (Auto) Cancelled 08/29/24 13:12 [place] % (Auto) Cancelled 08/29/24 13:12 Eos % (Auto) Cancelled 08/29/24 13:12 Baso % (Auto) Cancelled 08/29/24 13:12 Lymph # (Auto) Cancelled 08/29/24 13:12 [place] # (Auto) Cancelled 08/29/24 13:12 Eos # (Auto) Cancelled 08/29/24 13:12 Baso # (Auto) Cancelled 08/29/24 13:12 Abs Immat Gran (auto) Cancelled 08/29/24 13:12 Absolute Neuts (auto) Cancelled 08/29/24 13:12 Absolute Nucleated RBC 0.000 X10*3/uL (0.0-0.012) 08/31/24 06:15 Nucleated RBC % (auto) 0.0 /100WBC (0.0-0.2) 08/31/24 06:15 Neutrophils % (Manual) 90 % (45-73) H 08/29/24 13:12 Band Neutrophils % 8 % (3-5) H 08/29/24 13:12 Lymphocytes % (Manual) 1 % (20-40) L 08/29/24 13:12 Monocytes % (Manual) 1 % (2-11) L 08/29/24 13:12 Abs Neuts (Manual) 43.2 X10*3/uL (2.0-8.3) H 08/29/24 13:12 Lymphocytes # (Manual) 0.4 X10*3/uL (1.2-4.9) L 08/29/24 13:12 Monocytes # (Manual) 0.4 X10*3/uL (0.1-1.2) 08/29/24 13:12 Dohle Bodies PRESENT 08/29/24 13:12 Platelet Estimate NORMAL (NORMAL) 08/29/24 13:12 Plt Morphology Comment NORMAL 08/29/24 13:12 RBC Morphology NOTED 08/29/24 13:12 Polychromasia 1+ (0-2) /OIF 08/29/24 13:12 Tavares Cells 1+ (0-2) /OIF 08/29/24 13:12 Smear Tech's Comments MANUAL DIFF 08/29/24 13:12 Smear Path Review SEE NOTE 08/29/24 13:12 Hold Blue Top SEE NOTE 08/29/24 13:12 Sodium 133 mmol/L (135-145) L 08/31/24 06:15 Potassium 4.3 mmol/L (3.3-5.1) D 08/31/24 06:15 Chloride 100 mmol/L (96-108) 08/31/24 06:15 Carbon Dioxide 18 mmol/L (22-29) L 08/31/24 06:15 Anion Gap 19 (12-20) 08/31/24 06:15 BUN 96 mg/dL (9-16) H 08/31/24 06:15 Creatinine 5.76 mg/dL (0.5-1.4) H* 08/31/24 06:15 Estim Creat Clear Calc 20.6 08/31/24 06:15 Estimated GFR 11 08/31/24 06:15 POC Glucose 184 mg/dL (60-115) H 08/31/24 11:05 Random Glucose 76 mg/dL (60-115) 08/29/24 13:12 Fasting Glucose 258 mg/dL (60-99) H 08/31/24 06:15 Haptoglobin 300 mg/dL (14-258) H 08/31/24 06:15 Lactic Acid 0.8 mmol/L (0.5-2.0) 08/29/24 14:03 Calcium 5.4 mg/dL (8.4-10.2) L* D 08/31/24 06:15 Magnesium 1.8 mg/dL (1.6-2.6) 08/30/24 05:37 Total Bilirubin 0.6 mg/dL (0.0-1.0) 08/30/24 05:37 Direct Bilirubin 0.5 mg/dL (0.0-0.5) 08/30/24 05:37 AST 64 U/L (5-37) H 08/30/24 05:37 ALT 17 U/L (0-40) 08/30/24 05:37 Alkaline Phosphatase 484 U/L (39-117) H 08/30/24 05:37 Lactate Dehydrogenase 341 U/L (118-273) H 08/31/24 06:15 B-Natriuretic Peptide 906 pg/mL (<100) H 08/29/24 13:12 Total Protein 6.1 g/dL (6.5-8.0) L 08/30/24 05:37 Albumin 1.5 g/dL (3.5-5.0) L 08/31/24 06:15 Beta-Hydroxybutyrate 0.27 mmol/L (0.02-0.27) 08/29/24 13:12 PTH Intact 746.2 pg/mL (8.7-77.1) H 08/31/24 06:15 Urine Color Yellow 08/29/24 14:44 Urine Appearance Cloudy 08/29/24 14:44 Urine pH 5.5 (5.0-9.0) 08/29/24 14:44 Ur Specific [place] 1.015 (1.005-1.025) 08/29/24 14:44 Urine Protein 300 (3+) mg/dL (Neg-Trace) H 08/29/24 14:44 Urine Glucose (UA) Negative mg/dL (Negative) 08/29/24 14:44 Urine Ketones Negative mg/dL (Negative) 08/29/24 14:44 Urine Blood Moderate (2+) (Negative) H 08/29/24 14:44 Urine Nitrite Negative (Negative) 08/29/24 14:44 Ur Leukocyte Esterase Trace (Negative) H 08/29/24 14:44 Urine RBC 0-2 /HPF (0-2) 08/29/24 14:44 Urine WBC 6-10 /HPF (0-5) H 08/29/24 14:44 Ur Squamous Epith Cells 0-2 /HPF (0-2) 08/29/24 14:44 Urine Bacteria None Seen (None Seen) 08/29/24 14:44 Hyaline Casts 0-2 /LPF (0-2) 08/29/24 14:44 Stool Occult Blood NEGATIVE (NEGATIVE) 08/29/24 14:03 Urine Opiates Screen POSITIVE (Not Detect) H 08/30/24 09:26 Ur Buprenorphine Scrn Not Detected ng/mL (Not Detect) 08/30/24 09:26 Ur Oxycodone Screen Positive ng/mL (Not Detect) H 08/30/24 09:26 Urine Methadone Screen Not Detected ng/mL (Not Detect) 08/30/24 09:26 Urine Fentanyl Screen POSITIVE (Not Detect) H 08/30/24 09:26 Ur Barbiturates Screen Not Detected (Not Detect) 08/30/24 09:26 Ur Phencyclidine Scrn Not Detected (Not Detect) 08/30/24 09:26 Ur Amphetamines Screen Not Detected (Not Detect) 08/30/24 09:26 U Benzodiazepines Scrn Not Detected (Not Detect) 08/30/24 09:26 Urine Cocaine Screen POSITIVE (Not Detect) H 08/30/24 09:26 U Marijuana (THC) Screen Not Detected (Not Detect) 08/30/24 09:26 Hep Bs Antigen Negative (Negative) 08/30/24 11:08 Hep Bs Antibody NONREACTIVE (Nonreactive) 08/30/24 11:08 Hep B Core Total Ab Nonreactive (Nonreactive) 08/30/24 11:08 Blood Type O Positive 08/29/24 14:03 Antibody Screen NEGATIVE 08/29/24 14:03 Crossmatch See Detail 08/29/24 14:03 Impressions KUB X-Ray 08/29/24 13:25 IMPRESSION: 1. Prominent fecal loading of the ascending colon greatest along its proximal segment measuring up to 10.8 cm. 2. There is air-filled dilatation of the remaining colon measuring up to 8.4 cm. Electronically signed by: Angeles Galeas MD 08/29/2024 01:41 PM EDT RP Chest X-Ray 08/29/24 13:54 IMPRESSION: 1. Bronchial thickening suggesting infectious/inflammatory etiology. 2. Elevation right hemidiaphragm. 3. Left basilar atelectasis. Electronically signed by: Angeles Galeas MD 08/29/2024 03:07 PM EDT RP Abdomen/Pelvis CT 08/29/24 15:18 IMPRESSION: 1. No hydronephrosis. 2. Partially visualized patchy opacities in bilateral lung bases which may represent edema or infection. 3. Diffuse anasarca. Fleischner guidelines were followed. Electronically signed by: Mike Galan MD 08/29/2024 03:39 PM EDT RP Imaging Abdomen CT scan report/results: report reviewed and image reviewed CT scan - pelvis: report reviewed and image reviewed Assessment and Plan (1) Callus of foot: Status: Acute He has a very thick callus especially in the medial aspect of the left foot transmetatarsal amputation site. I bluntly debrided this at this time too thin this out There is no open wound. There were so evidence of an ongoing infection in this area. There was no discharge I will likely do sharp excisional debridement of the callus at bedside at some point. I will follow along while he is in the hospital (2) Constipation: Status: Acute His CAT scan does heavy fecal load consistent with constipation. I would start him on stool softeners laxatives. His abdominal exam is otherwise benign. Procedures Date of Service Date of Service: 09/02/24
[2024-08-31 14:45] LABS: Glucose, Whole Blood 124 mg/dL (60-115)
[2024-08-31 15:33] LABS: Complement C3 104 mg/dL (82-185)
[2024-08-31 15:59] LABS: Glucose, Whole Blood 151 mg/dL (60-115)
[2024-08-31] MEDS: Melatonin 3 MG TABLET 6 MG PO (20:09)
[2024-08-31 20:10] LABS: Glucose, Whole Blood 274 mg/dL (60-115)
[2024-08-31] MEDS: Docusate Sodium 100 MG CAPSULE PO (20:10)
[2024-08-31] MEDS: Lactulose 20 GM/30 ML SOLUTION PO (20:24)
[2024-08-31] MEDS: guaiFEN/Codeine SF 200/20/10ML 10 ML LIQUID 5 ML PO (23:44)
[2024-09-01] VITALS (13 sets, daily range): BP systolic 113–159; BP diastolic 65–82; PULSE 100–110; RESP 17–20; TEMP 36.3–36.9; O2SAT 95–97
[2024-09-01 06:13] LABS: Hematocrit 23.8 % (42.0-52.0); Hemoglobin 8.1 g/dl (14.0-18.0); Mean Corpuscular Hemoglobin 27.8 pg (27.0-33.0); Mean Corpuscular Volume 81.8 fL (80.0-98.0); Mean Platelet Volume 11.2 fL (9.4-12.4); NRBC Pct Auto 0.1 /100WBC (0.0-0.2); Platelet Count 288 X10*3/uL (160-400); Red Blood Count 2.91 X10*6/uL (4.60-5.80); Red Cell Distribution Width 15.4 % (11.0-16.0)
[2024-09-01 06:36] LABS: Anion Gap 17 (12-20); Blood Urea Nitrogen 71 mg/dL (9-16); Calcium 6.3 mg/dL (8.4-10.2); Carbon Dioxide 20 mmol/L (22-29); Chloride 100 mmol/L (96-108); Creatinine Clr Calc Pharmacy 27.6; Estimated Glomerular Filt Rate 15; Glucose Random 124 mg/dL (60-115); Phosphorus 7.4 mg/dL (2.7-4.5); Sodium 133 mmol/L (135-145)
[2024-09-01 07:16] LABS: Glucose, Whole Blood 120 mg/dL (60-115)
[2024-09-01] MEDS: 0.9 % Sodium Chloride Flush 3 ML SYRINGE IVFLUSH ×3 (08:48→22:22)
[2024-09-01] MEDS: Lactulose 20 GM/30 ML SOLUTION PO (08:48)
[2024-09-01] MEDS: calcitrioL 0.25 MCG CAPSULE PO (08:49)
[2024-09-01] MEDS: Docusate Sodium 100 MG CAPSULE PO ×2 (08:49→22:21)
[2024-09-01] MEDS: Nicotine 14 MG PATCH.TD24 TRANSDERMA (08:49)
[2024-09-01] MEDS: Multivitamin TABLET 1 TAB PO (08:49)
[2024-09-01] MEDS: Psyllium seed 3.7 GM PACKET PO (08:51)
[2024-09-01] MEDS: methADONE HCl 20 MG/2 ML ORAL.CONC 40 MG PO (08:52)
[2024-09-01] MEDS: oxyCODONE HCl Immed Release 5 MG TABLET PO ×2 (10:29→19:39)
--- NOTE | 2024-09-01 10:29 | MHC.CM.PN ---
EMR REVIEWED, PT W/MERLIN AND HOMELESS, PER HOSPITALIST PT NEEDING INPT HD, UNSURE IF IT WILL BE PERMANENT, PT ALSO STARTED ON METHADONE BY RECOVERY TEAM, NO PLAN FOR DC AT THIS TIME, CM WILL CONT TO FOLLOW DC NEEDS.
[2024-09-01 11:32] LABS: Glucose, Whole Blood 217 mg/dL (60-115)
[2024-09-01] MEDS: Albuterol/Iprat 2.5/0.5MG 3 ML AMPUL.NEB INHALE (11:33)
--- NOTE | 2024-09-01 11:38 | MHC.RECOVRN ---
Met with pt to follow up after receiving 40 mg methadone this morning. Pt laying in bed, awake, alert, engages in conversation. Pts eyelids appear heavy at times during conversation. Pt requesting increase in methadone due to continued withdrawal symptoms including inability to sleep and body aches. No rhinorrhea, epiphora, or diaphoresis present, pt denies stomach upset, able to eat normally, no restlessness or yawning noted. Pt denies other questions or concerns at this time. Discussed with Catina Cantu APRN.
--- NOTE | 2024-09-01 11:42 | P.PNIM_ITS ---
Subjective Subjective Date of Service: 09/01/24 Interval History: Seen and evaluated this morning Feels better as swelling going down Creatinine improving , tolerated HD Ca too low , corrected 7.7 No other overnight events Physical Exam 2 Vital Signs: Vital Signs: Last Vital Signs Temp 97.3 F 09/01/24 11:21 Pulse 100 09/01/24 11:39 Resp 18 09/01/24 11:39 BP 128/71 09/01/24 11:21 Pulse Ox 97 09/01/24 11:21 O2 Del Method Room Air 09/01/24 11:21 O2 Flow Rate 2 08/30/24 02:00 BMI result Body Mass Index 39.8 Const: Other: Constitutional : Awake, interactive, not in distress Neck : Normal inspection, Supple Cardiovascular : RRR, no JVP, no lower extremity edema Respiratory : good bilateral air entry, no crackles, wheezes or rhonchi Gastrointestinal: soft, lax, Normal bowel sounds, Non tender Skin : Warm, Dry, multiple skin picking gabriel, BKA right, LLE callus with dry skin, Dialysis catheter in place , Neurological : Alert & oriented x3, No focal deficit Objective Data Active Medications Acetaminophen (Acetaminophen 325 Mg Tablet) 650 mg PO Q6H PRN PRN Reason: Pain, Mild (Pain Scale 1-3), fever or headache Last Admin: 08/31/24 08:32 Dose: 650 mg Documented By: DENNY Albuterol/Ipratropium (Albuterol/Iprat 2.5/0.5mg 3 Ml Ampul.Neb) 3 ml INHALE Q4H PRN PRN Reason: Wheezing Last Admin: 09/01/24 11:33 Dose: 3 ml Documented By: GARY Calcitriol (Calcitriol 0.25 Mcg Capsule) 0.25 mcg PO DAILY [facility] Last Admin: 09/01/24 08:49 Dose: 0.25 mcg Documented By: KEN Calcium Carbonate (Calcium Carbonate 750 Mg Tab.Chew) 750 mg PO Q4H PRN PRN Reason: Heartburn Last Admin: 08/31/24 12:23 Dose: 750 mg Documented By: DENNY Docusate Sodium (Docusate Sodium 100 Mg Capsule) 100 mg PO BID [facility] Last Admin: 09/01/24 08:49 Dose: 100 mg Documented By: KEN Glucose (Glucose Gel 15 Gm Gel..Gram.) 15 gm PO Q15M PRN; Protocol PRN Reason: per Hypoglycemia Standing Ord. Guaifenesin/Codeine Phosphate (Guaifen/Codeine Sf 200/20/10ml 10 Ml Liquid) 5 ml PO Q6H PRN PRN Reason: Cough Last Admin: 08/31/24 23:44 Dose: 5 ml Documented By: PETE Dextrose (D10) 250 mls @ 750 mls/hr IV Q15M PRN; Protocol PRN Reason: per Hypoglycemia Standing Ord. Insulin Human Lispro (Insulin Lispro 100 Unit/Ml 3 Ml Vial) 0 unit SUBCUT QIDACHS [facility]; Protocol Last Admin: 09/01/24 08:14 Dose: Not Given Documented By: KEN Non-Admin Reason: No Insulin Coverage Lactulose (Lactulose 20 Gm/30 Ml Solution) 20 gm PO BID [facility] Last Admin: 09/01/24 08:48 Dose: 20 gm Documented By: KEN Melatonin (Melatonin 3 Mg Tablet) 6 mg PO BEDTIME PRN PRN Reason: Insomnia Last Admin: 08/31/24 20:09 Dose: 6 mg Documented By: PETE Methadone HCl (Methadone Hcl 20 Mg/2 Ml Oral.Conc) 40 mg PO DAILY@0800 [facility] Last Admin: 09/01/24 08:52 Dose: 40 mg Documented By: KEN Co-signed By: DELONTE Multivitamins/Vitamin C (Multivitamin Tablet) 1 tab PO DAILY [facility] Last Admin: 09/01/24 08:49 Dose: 1 tab Documented By: KEN Nicotine (Nicotine 14 Mg Patch.Td24) 14 mg TRANSDERMA DAILY [facility] Last Admin: 09/01/24 08:49 Dose: 14 mg Documented By: KEN Ondansetron HCl (Ondansetron Hcl 4 Mg/2 Ml Vial) 4 mg IVPUSH Q8H PRN PRN Reason: Nausea and Vomiting Last Admin: 08/31/24 11:09 Dose: 4 mg Documented By: BHAVANIOTPASheryl Oxycodone HCl (Oxycodone Hcl Immed Release 5 Mg Tablet) 5 mg PO Q8H PRN PRN Reason: Pain, Severe (Pain Scale 7-10) Last Admin: 10/30/24 10:29 Dose: 5 mg Documented By: GAYATRI Psyllium Hydrophilic Mucilloid (Psyllium Seed 3.7 Gm Packet) 3.7 gm PO DAILY [facility] Last Admin: 09/01/24 08:51 Dose: 3.7 gm Documented By: KEN Sodium Chloride (0.9 % Sodium Chloride Flush 3 Ml Syringe) 3 ml IVFLUSH QSHIFT [facility] Last Admin: 09/01/24 08:48 Dose: 3 ml Documented By: KEN Labs 09/01/24 05:41 09/01/24 05:41 Labs: Laboratory Results - last 24 hr 08/29/24 08/29/24 08/29/24 14:03 16:57 17:31 MCV MCH MCHC RDW Plt Count MPV Absolute Nucleated RBC Nucleated RBC % (auto) Anion Gap Estim Creat Clear Calc Estimated GFR POC Glucose Random Glucose Calcium Phosphorus Urine Immunofixation SEE NOTE Complement C3 104 Complement C4 22 Crossmatch See Detail 08/31/24 08/31/24 08/31/24 14:41 15:56 20:01 MCV MCH MCHC RDW Plt Count MPV Absolute Nucleated RBC Nucleated RBC % (auto) Anion Gap Estim Creat Clear Calc Estimated GFR POC Glucose 124 H 151 H 274 H Random Glucose Calcium Phosphorus Urine Immunofixation Complement C3 Complement C4 Crossmatch 09/01/24 09/01/24 09/01/24 05:41 07:10 11:29 MCV 81.8 MCH 27.8 MCHC 34.0 RDW 15.4 Plt Count 288 MPV 11.2 Absolute Nucleated RBC 0.020 H Nucleated RBC % (auto) 0.1 Anion Gap 17 Estim Creat Clear Calc 27.6 Estimated GFR 15 POC Glucose 120 H 217 H Random Glucose 124 H Calcium 6.3 L D Phosphorus 7.4 H Urine Immunofixation Complement C3 Complement C4 Crossmatch Microbiology Microbiology Results: Microbiology 08/29/24 14:03 Blood Culture - Preliminary Blood - Venous No growth after 48 hours. 08/29/24 14:03 Blood Culture - Preliminary Blood - Venous No growth after 48 hours. Assessment and Plan (1) Polysubstance abuse: Status: Acute (2) Hyperglycemia due to type 2 diabetes mellitus: Status: Acute (3) MERLIN (acute kidney injury): Status: Acute (4) Acute renal failure: Status: Acute Plan 44M PMH hypertension, hyperlipidemia, diabetes, CKD 3, polysubstance dependence, history of peripheral vascular disease presented with weakness found to have merlin, anemia, leukocysotis, acidosis acute metabolic encephalopathy due to uremic encephalopathy due to MERLIN on CKD 3 complicated by acute metabolic acidosis, mentation improved back to baseline Pending vasculitis panel, SPEP UPEP, normal compliment level follow-up BMP catheter placement 08/30/24 and started dialysis for 2 sessions Nephrology input appreciated, will likely need kidney biopsy Acute on chronic anemia with Leukocytosis WBC stable at 29k Hb improved to 8.1 after 3 units transfusion no clear source of infection, no sepsis Question leukemoid reaction or underlying malignancy? Anemia of chronic diseases? Inflammatory? Elevated LDH, Haptoglobin hematology input appreciated, BCR-ABL gene 10,000 units of epogen with HD today Acute hypocalcemia corrected at 7.9 replacement given Elevated PTH, start Calcitriol Hx drug abuse U.Tox +ve for Cocaine, Opiates, Fentanyl and Oxy Addiciton team following Methadone started Diabetes II Insulin sliding scale Hypertension Hold BP meds for now Scrotal swelling secondary to fluid overload support, dialysis, monitor DVT prophylaxis start Heparin SC Full code reason for continued hospitalization:severe merlin requiring Dialysis, blood trnasfusion Quality Stroke Does the patient have a stroke diagnosis?: No VTE Prior VTE?: No VTE Risk Level:: Medical - moderate - high VTE Device Contraindication: N/A - Device Ordered VTE Drug Contraindication: Treatment Not Indicated
[2024-09-01] MEDS: guaiFEN/Codeine SF 200/20/10ML 10 ML LIQUID 5 ML PO (11:44)
[2024-09-01] MEDS: Insulin Lispro 100 UNIT/ML 3 ML VIAL SUBCUT ×2 (11:44→22:21)
--- NOTE | 2024-09-01 11:57 | P.PNNP_ITS ---
Subjective Subjective Date of Service: 09/01/24 Interval history: 44 y/o male with a medical history of HTN, HLD, CKD3, polysubstance dependence, PVD. 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 He presented on 08/29 with weakness, abdominal bloating, lower extremity edema/pain. creatinine 6.79 on 08/29 (previous creatinine 2.02 from 1 year ago), 08/30 increased to 7.10 potassium 5.4 on 08/29, 5.4 08/30, received lokelma on 08/29, potassium 4.3 on 08/31 s/p HD sodium 129 08/29, 131 08/30, 133 08/31 serum bicarb 10 on 08/29, 13 on 08/30, 18 on 08/31 (s/p HD, bicarb gtt discontinued). urine studies from 08/29 still pending (ur prot/cr ratio, UPEP), no blood on UA from 08/29. CT abd/pelvis on 08/29 showed no hydronephrosis, kidneys/ureters unremarkable, showed diffuse anasarca and pulmonary edema. Liver unremarkable. pt had right IJ trialysis catheter placed by IR 08/30, received HD 08/30, 08/31. Patient today is alert and oriented states his breathing is ok, not as good as yesterday denies chest pain, abdominal pain, flank pain states swelling has improved in his lower extremities but still feels very swollen denies muscle cramping, tremors, jerking movements denies pruritus, nausea, vomiting pt is making urine (verde), but oliguric. yesterday 08/31 (300mL/24hrs) Physical Exam 2 Vital Signs: Vital Signs: Last Vital Signs Temp 97.3 F 09/01/24 11:21 Pulse 100 09/01/24 11:39 Resp 18 09/01/24 11:39 BP 128/71 09/01/24 11:21 Pulse Ox 97 09/01/24 11:21 O2 Del Method Room Air 09/01/24 11:21 O2 Flow Rate 2 08/30/24 02:00 BMI result Body Mass Index 39.8 Const: General: no acute distress, alert and awake Resp: Effort & Inspection: normal respiratory effort Auscultation: clear to auscultation bilaterally Cardio: Jugular venous distension: no JVD Rate: regular rate Rhythm: r egular rhythm Heart sounds: S1 normal heart sound present and S2 normal heart sound present GI: Palpation (GI): Soft to palpation, Tenderness to palpation present (GI) (tender to palpation of lower abdomen edematous) and Other GI palpation findings present (pitting edema lower abdomen) : General: Yes no CVA tenderness Back/Spine/Pelvis: Back: no CVA tenderness Skin: Lesions: no lesions Rashes: no rashes Neuro: General: moves all extremities Motor exam (neuro): no tremor noted, no asterixis, Motor abnormalites present and Other motor observations present (patient had episode of full-body, transient jerk x1 during examination) Extrem: General: Yes edema (pitting edema lower extremities) Objective Data Labs 09/01/24 05:41 09/01/24 05:41 Labs: Laboratory Results - last 24 hr 08/29/24 08/29/24 08/29/24 14:03 16:57 17:31 WBC RBC Hgb Hct MCV MCH MCHC RDW Plt Count MPV Absolute Nucleated RBC Nucleated RBC % (auto) Sodium Potassium Chloride Carbon Dioxide Anion Gap BUN Creatinine Estim Creat Clear Calc Estimated GFR POC Glucose Random Glucose Calcium Phosphorus Urine Immunofixation SEE NOTE Complement C3 104 Complement C4 22 Crossmatch See Detail 08/31/24 08/31/24 08/31/24 14:41 15:56 20:01 WBC RBC Hgb Hct MCV MCH MCHC RDW Plt Count MPV Absolute Nucleated RBC Nucleated RBC % (auto) Sodium Potassium Chloride Carbon Dioxide Anion Gap BUN Creatinine Estim Creat Clear Calc Estimated GFR POC Glucose 124 H 151 H 274 H Random Glucose Calcium Phosphorus Urine Immunofixation Complement C3 Complement C4 Crossmatch 09/01/24 09/01/24 09/01/24 05:41 07:10 11:29 WBC 29.0 H RBC 2.91 L D Hgb 8.1 L D Hct 23.8 L D MCV 81.8 MCH 27.8 MCHC 34.0 RDW 15.4 Plt Count 288 MPV 11.2 Absolute Nucleated RBC 0.020 H Nucleated RBC % (auto) 0.1 Sodium 133 L Potassium 4.0 Chloride 100 Carbon Dioxide 20 L Anion Gap 17 BUN 71 H Creatinine 4.31 H* Estim Creat Clear Calc 27.6 Estimated GFR 15 POC Glucose 120 H 217 H Random Glucose 124 H Calcium 6.3 L D Phosphorus 7.4 H Urine Immunofixation Complement C3 Complement C4 Crossmatch Microbiology Microbiology Results: Microbiology 08/29/24 14:03 Blood - Venous Blood Culture - Preliminary No growth after 48 hours. 08/29/24 14:03 Blood - Venous Blood Culture - Preliminary No growth after 48 hours. 08/29/24 Unknown Urine clean catch - Clean Catch Midstream Urine Culture - Final No growth. Procedures Date of Service Date of Service: 09/01/24 Assessment & Plan Assessment and plan (1) Acute renal failure: Status: Acute (2) MERLIN (acute kidney injury): Status: Acute (3) CKD (chronic kidney disease) stage 3, GFR 30-59 ml/min: Status: Acute Plan Patient with MERLIN on CKD vs natural progression of underlying disease Patient has tested positive for cocaine, differential includes cocaine-induced injury Pt remains acidotic, oliguric - will get HD today pt had right IJ trialysis catheter placed by IR 08/30 and is intact without erythema. H&H is low but improving, likely related to CKD, 10,000 units of epogen administered with HD yesterday Calcium 6.5, PTH 7.46. Calcitriol 0.25mg daily initiated Phosphorous elevated at 7.4, started sevelamer 800mg TID with meals patient remains fluid-overloaded, will remove 1-2kg Will need renal biopsy, will hold for now as H&H is low Continue close monitoring of electrolytes, blood pressure, urine output Will continue to follow closely Discussed with Dr Cagle Time Spent With Patient Time: Total time managing care of this patient today ____ minutes. Progress Note: Quality Stroke Does the patient have a stroke diagnosis?: No
[2024-09-01] MEDS: methADONE HCl 20 MG/2 ML ORAL.CONC 10 MG PO (12:39)
[2024-09-01] MEDS: Heparin Sodium,Porcine 5,000 UNIT/ML VIAL 5000 UNIT SUBCUT ×2 (12:39→23:11)
[2024-09-01] MEDS: Throat Lozenge, Medicated LOZENGE 1 LOZENGE MUCOUS MEM (13:46)
[2024-09-01 14:37] LABS: Prot Elec - Alpha1 0.8 g/dL (0.2-0.3); Prot Elec - Alpha2 0.9 g/dL (0.5-0.9); Prot Elec - Beta 1 0.4 g/dL (0.4-0.6); Prot Elec - Beta 2 0.7 g/dL (0.2-0.5); Prot Elec - Gamma 1.9 g/dL (0.8-1.7)
[2024-09-01 16:21] LABS: Glucose, Whole Blood 148 mg/dL (60-115)
[2024-09-01] MEDS: Sevelamer Carbonate Tablet 800 MG TABLET PO (16:44)
--- NOTE | 2024-09-01 19:13 | MHC.RECOVSUP ---
? Reason for consult Recovery Support o Current location: [facility] o Identified substance use concern: Heroin - Support ? Intervention: o Community resources provided o Harm reduction discussion ? Plan: o Patient to follow up with [facility] after discharge ? Additional information: Met with patient and we talked about recovery and harm reduction.. We talked about the recovery center as a great way to meet new people and to get support with his recovery.
[2024-09-01 21:11] LABS: Glucose, Whole Blood 169 mg/dL (60-115)
[2024-09-01 21:14] LABS: IgA 651 mg/dL (47-310); IgG 2009 mg/dL (600-1640); IgM 55 mg/dL (50-300); Myeloperoxidase Antibody <1.0 AI; Proteinase 3 PR3 Antibodies <1.0 AI
[2024-09-02] VITALS (8 sets, daily range): BP systolic 125–148; BP diastolic 60–82; PULSE 91–108; RESP 17–22; TEMP 36.6–37.4; O2SAT 94–100
[2024-09-02] MEDS: guaiFEN/Codeine SF 200/20/10ML 10 ML LIQUID 5 ML PO (00:35)
[2024-09-02 06:21] LABS: Hematocrit 23.7 % (42.0-52.0); Mean Corpuscular HGB Conc 33.8 g/dl (31.0-36.0); Mean Corpuscular Hemoglobin 28.3 pg (27.0-33.0); Mean Corpuscular Volume 83.7 fL (80.0-98.0); Mean Platelet Volume 10.9 fL (9.4-12.4); Platelet Count 340 X10*3/uL (160-400); Red Blood Count 2.83 X10*6/uL (4.60-5.80); Red Cell Distribution Width 15.9 % (11.0-16.0)
[2024-09-02 06:40] LABS: Anion Gap 13 (12-20); Blood Urea Nitrogen 53 mg/dL (9-16); Calcium 6.6 mg/dL (8.4-10.2); Carbon Dioxide 23 mmol/L (22-29); Chloride 101 mmol/L (96-108); Estimated Glomerular Filt Rate 20; Glucose Random 163 mg/dL (60-115); Potassium 3.7 mmol/L (3.3-5.1); Sodium 133 mmol/L (135-145)
[2024-09-02 06:43] LABS: White Blood Count 31.4 X10*3/uL (4.8-10.8)
[2024-09-02 07:41] LABS: Glucose, Whole Blood 164 mg/dL (60-115)
[2024-09-02 08:22] LABS: PEU-Protein Creat Ratio Rand 7.441 (0.025-0.148); PEU-Rand. Prot/Creat Ratio 7441 mg/g creat (25-148); PEU-Random Ur. Gamma Globulin 43 %; PEU-Random Urine A1 Globulin 7 %; PEU-Random Urine A2 Globulin 6 %; PEU-Random Urine Albumin 37 %; PEU-Random Urine Beta Globulin 7 %; PEU-Random Urine Creatinine 59 mg/dL (20-320); PEU-Random Urine Protein 439 mg/dL (5-25)
[2024-09-02] MEDS: Sevelamer Carbonate Tablet 800 MG TABLET PO ×3 (08:43→16:28)
[2024-09-02] MEDS: calcitrioL 0.25 MCG CAPSULE PO (08:43)
[2024-09-02] MEDS: Multivitamin TABLET 1 TAB PO (08:43)
[2024-09-02] MEDS: Docusate Sodium 100 MG CAPSULE PO ×2 (08:43→21:26)
[2024-09-02] MEDS: Insulin Lispro 100 UNIT/ML 3 ML VIAL SUBCUT ×4 (08:44→21:26)
[2024-09-02] MEDS: Nicotine 14 MG PATCH.TD24 TRANSDERMA (08:45)
[2024-09-02] MEDS: methADONE HCl 20 MG/2 ML ORAL.CONC 50 MG PO (08:49)
--- NOTE | 2024-09-02 08:51 | P.PNGS_ITS ---
Subjective Subjective Date of Service: 09/02/24 Interval history: Denies new complaints currently Says he is comfortable Denies pain on his foot Physical Exam 2 Vital Signs: Vital Signs: Last Vital Signs Temp 97.8 F 09/02/24 07:05 Pulse 107 H 09/02/24 07:05 Resp 17 09/02/24 07:05 BP 148/82 H 09/02/24 07:05 Pulse Ox 96 09/02/24 07:05 O2 Del Method Room Air 09/02/24 07:05 O2 Flow Rate 2 08/30/24 02:00 BMI result Body Mass Index 39.8 Const: Other: Some mild shortness of breath General: comfortable and no acute distress Resp: Other: Mildly short of breath Cardio: Rate: tachycardic GI: Other: Protuberant Extrem: Other: Left foot transmetatarsal amputation stump thick hyperkeratotic skin along old incision Objective Data Active Medications Acetaminophen (Acetaminophen 325 Mg Tablet) 650 mg PO Q6H PRN PRN Reason: Pain, Mild (Pain Scale 1-3), fever or headache Last Admin: 08/31/24 08:32 Dose: 650 mg Documented By: DENNY Albuterol/Ipratropium (Albuterol/Iprat 2.5/0.5mg 3 Ml Ampul.Neb) 3 ml INHALE Q4H PRN PRN Reason: Wheezing Last Admin: 09/01/24 11:33 Dose: 3 ml Documented By: GARY Benzocaine (Throat Lozenge, Medicated Lozenge) 1 lozenge MUCOUS MEM Q2H PRN PRN Reason: Sore Throat Last Admin: 09/01/24 13:46 Dose: 1 lozenge Documented By: GAYATRI Calcitriol (Calcitriol 0.25 Mcg Capsule) 0.25 mcg PO DAILY [facility] Last Admin: 09/02/24 08:43 Dose: 0.25 mcg Documented By: STEFANI Calcium Carbonate (Calcium Carbonate 750 Mg Tab.Chew) 750 mg PO Q4H PRN PRN Reason: Heartburn Last Admin: 08/31/24 12:23 Dose: 750 mg Documented By: DENNY Docusate Sodium (Docusate Sodium 100 Mg Capsule) 100 mg PO BID [facility] Last Admin: 09/02/24 08:43 Dose: 100 mg Documented By: STEFANI Glucose (Glucose Gel 15 Gm Gel..Gram.) 15 gm PO Q15M PRN; Protocol PRN Reason: per Hypoglycemia Standing Ord. Guaifenesin/Codeine Phosphate (Guaifen/Codeine Sf 200/20/10ml 10 Ml Liquid) 5 ml PO Q6H PRN PRN Reason: Cough Last Admin: 09/02/24 00:35 Dose: 5 ml Documented By: CORONA Heparin Sodium (Porcine) (Heparin Sodium,Porcine 5,000 Unit/Ml Vial) 5,000 unit SUBCUT Q12H [facility] Last Admin: 09/01/24 23:11 Dose: 5,000 unit Documented By: VALENTINE Dextrose (D10) 250 mls @ 750 mls/hr IV Q15M PRN; Protocol PRN Reason: per Hypoglycemia Standing Ord. Insulin Human Lispro (Insulin Lispro 100 Unit/Ml 3 Ml Vial) 0 unit SUBCUT QIDACHS [facility]; Protocol Last Admin: 09/02/24 08:44 Dose: 2 unit Documented By: STEFANI Lactulose (Lactulose 20 Gm/30 Ml Solution) 20 gm PO BID [facility] Last Admin: 09/01/24 22:23 Dose: Not Given Documented By: VALENTINE Non-Admin Reason: Patient Refused Melatonin (Melatonin 3 Mg Tablet) 6 mg PO BEDTIME PRN PRN Reason: Insomnia Last Admin: 08/31/24 20:09 Dose: 6 mg Documented By: PETE Methadone HCl (Methadone Hcl 20 Mg/2 Ml Oral.Conc) 50 mg PO DAILY@0800 [facility] Last Admin: 09/02/24 08:49 Dose: 50 mg Documented By: STEFANI Co-signed By: GIL Multivitamins/Vitamin C (Multivitamin Tablet) 1 tab PO DAILY [facility] Last Admin: 09/02/24 08:43 Dose: 1 tab Documented By: STEFANI Nicotine (Nicotine 14 Mg Patch.Td24) 14 mg TRANSDERMA DAILY [facility] Last Admin: 09/02/24 08:45 Dose: 14 mg Documented By: STEFANI Ondansetron HCl (Ondansetron Hcl 4 Mg/2 Ml Vial) 4 mg IVPUSH Q8H PRN PRN Reason: Nausea and Vomiting Last Admin: 08/31/24 11:09 Dose: 4 mg Documented By: DENNY Oxycodone HCl (Oxycodone Hcl Immed Release 5 Mg Tablet) 5 mg PO Q8H PRN PRN Reason: Pain, Severe (Pain Scale 7-10) Last Admin: 09/01/24 19:39 Dose: 5 mg Documented By: VALENTINE Psyllium Hydrophilic Mucilloid (Psyllium Seed 3.7 Gm Packet) 3.7 gm PO DAILY [facility] Last Admin: 09/01/24 08:51 Dose: 3.7 gm Documented By: KEN Sevelamer Carbonate (Sevelamer Carbonate Tablet 800 Mg Tablet) 800 mg PO TIDWM ON [facility] Last Admin: 09/02/24 08:43 Dose: 800 mg Documented By: STEFANI Sodium Chloride (0.9 % Sodium Chloride Flush 3 Ml Syringe) 3 ml IVFLUSH QSHIFT ON [facility] Last Admin: 09/01/24 22:22 Dose: 3 ml Documented By: VALENTINE Labs 09/02/24 05:58 09/02/24 05:58 Labs: Laboratory Results - last 24 hr 08/29/24 08/29/24 09/01/24 16:57 17:31 11:29 MCV MCH MCHC RDW Plt Count MPV Absolute Nucleated RBC Nucleated RBC % (auto) Anion Gap Estim Creat Clear Calc Estimated GFR POC Glucose 217 H Random Glucose Calcium Total Protein (PEP) 6.0 L Albumin (PEP) SEE NOTE Zlvje-8-Ikbzuxhnw 0.8 H Adypb-2-Lcrofahxn 0.9 Upxr-5-Xhphtqkf 0.4 Izqk-8-Srldacpk 0.7 H Gamma Globulins 1.9 H PEP Interpretation SEE NOTE U Mazon Prot/Creat Ratio 7.441 H Ur Creatinine mg/dL 59 U Total Protein mg/dL 439 H Protein/Creatinin Ratio 7441 H Urine Albumin (%) 37 U Knptg-2-Usjetxui (%) 7 U Yqqrf-2-Ecqigxza (%) 6 U Beta Globulin (%) 7 U Gamma Globulin (%) 43 Urine PEP Interpret SEE NOTE IgG Total 2009 H IgA Total 651 H IgM 55 ABENA Interpretation SEE NOTE Urine Immunofixation SEE NOTE Proteinase 3 (PR3) Ab <1.0 Myeloperoxidase Ab <1.0 09/01/24 09/01/24 09/02/24 16:18 21:07 05:58 MCV 83.7 MCH 28.3 MCHC 33.8 RDW 15.9 Plt Count 340 MPV 10.9 Absolute Nucleated RBC 0.000 Nucleated RBC % (auto) 0.0 Anion Gap 13 Estim Creat Clear Calc 36.0 Estimated GFR 20 POC Glucose 148 H 169 H Random Glucose 163 H Calcium 6.6 L Total Protein (PEP) Albumin (PEP) Aeomp-0-Sksitpxod Gonty-2-Zexnolnan Kzun-1-Wzryywmb Sjtn-3-Isclihqd Gamma Globulins PEP Interpretation U Mazon Prot/Creat Ratio Ur Creatinine mg/dL U Total Protein mg/dL Protein/Creatinin Ratio Urine Albumin (%) U Zqixl-9-Uewjqzmj (%) U Dfgmi-8-Nrittpll (%) U Beta Globulin (%) U Gamma Globulin (%) Urine PEP Interpret IgG Total IgA Total IgM ABENA Interpretation Urine Immunofixation Proteinase 3 (PR3) Ab Myeloperoxidase Ab 09/02/24 07:13 MCV MCH MCHC RDW Plt Count MPV Absolute Nucleated RBC Nucleated RBC % (auto) Anion Gap Estim Creat Clear Calc Estimated GFR POC Glucose 164 H Random Glucose Calcium Total Protein (PEP) Albumin (PEP) Jprej-0-Pjqwprynn Riwtn-6-Plxdbhwud Cncb-9-Cstulhda Pyco-3-Jwcslteb Gamma Globulins PEP Interpretation U Mazon Prot/Creat Ratio Ur Creatinine mg/dL U Total Protein mg/dL Protein/Creatinin Ratio Urine Albumin (%) U Amxnh-5-Bdhlnlmg (%) U Mheva-9-Xajqsutj (%) U Beta Globulin (%) U Gamma Globulin (%) Urine PEP Interpret IgG Total IgA Total IgM ABENA Interpretation Urine Immunofixation Proteinase 3 (PR3) Ab Myeloperoxidase Ab Procedures Date of Service Date of Service: 09/02/24 Progress Note: A&P Assessment and plan (1) Callus of foot: Status: Acute Assessment and Plan: He had very thick hyperkeratotic skin on the old TMA scar on the left foot Excisional debridement done bedside He would benefit from occasional debridement of this area to thin out the scar Warm soaks at home Has otherwise multiple medical issues Time Spent With Patient Time: Total time managing care of this patient today ____ minutes. Quality Stroke Does the patient have a stroke diagnosis?: No VTE Prior VTE?: No VTE Risk Level:: Medical - moderate - high VTE Device Contraindication: N/A - Device Ordered VTE Drug Contraindication: Treatment Not Indicated
--- NOTE | 2024-09-02 08:54 | PCN2_ITS ---
Brief Operative Note Date of procedure: 09/01/24 Pre-op diagnosis: Thick hyperkeratotic scar and callus on the left transmetata rsal amputation Post-op diagnosis: same Procedure: Excisional debridement of very thick hyperkeratotic skin along the old TMA amputation site I used fine scissors to excise thick callus and very hyperkeratotic skin along the entire TMA amputation site. This only involved skin and no subcutaneous fat . Area debrided was about 1 x 4 cm . He tolerated the procedure well. Anesthesia: none Pathology: none sent Condition: stable
[2024-09-02] MEDS: Psyllium seed 3.7 GM PACKET PO (10:03)
[2024-09-02] MEDS: 0.9 % Sodium Chloride Flush 3 ML SYRINGE IVFLUSH ×3 (10:03→21:26)
[2024-09-02] MEDS: Lactulose 20 GM/30 ML SOLUTION PO ×2 (10:03→21:26)
[2024-09-02] MEDS: oxyCODONE HCl Immed Release 5 MG TABLET PO ×2 (10:10→14:01)
--- NOTE | 2024-09-02 10:11 | PM.PNNEP ---
Subjective Subjective Date of Service: 09/02/24 Interval history: 44 y/o male with a medical history of HTN, HLD, CKD3, polysubstance dependence, PVD. 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 He presented on 08/29 with weakness, abdominal bloating, lower extremity edema/pain. creatinine 6.79 on 08/29 (previous creatinine 2.02 from 1 year ago), started HD on 08/30; creatinine 09/02 is 3.31, down from 4.31 day prior; BUN 53 09/02 potassium 3.7 09/02 sodium 129 08/29, 131 08/30, 133 08/31, 133 09/02 serum bicarb 23 on 09/02 urine prot/creat ratio 7.441 on 08/29; UPEP pending. No blood in urine from 08/29 CT abd/pelvis on 08/29 showed no hydronephrosis, kidneys/ureters unremarkable, showed diffuse anasarca and pulmonary edema. Liver unremarkable. pt had right IJ trialysis catheter placed by IR 08/30, received HD 08/30, 08/31, 09/01. Patient today is alert and oriented states his breathing is ok, better than yesterday denies chest pain, abdominal pain, flank pain states swelling has continued to improved in his lower extremities/scrotum but still feels very swollen denies muscle cramping, tremors, jerking movements denies pruritus, nausea, vomiting pt is making urine (verde), 600mL over last 24 hours Physical Exam Vital Signs: Vital Signs: Last Vital Signs Temp 97.8 F 09/02/24 07:05 Pulse 107 H 09/02/24 07:05 Resp 17 09/02/24 07:05 BP 148/82 H 09/02/24 07:05 Pulse Ox 96 09/02/24 07:05 O2 Del Method Room Air 09/02/24 07:05 O2 Flow Rate 2 08/30/24 02:00 BMI result Body Mass Index 39.8 Const: General: no acute distress, alert and awake Resp: Effort & Inspection: normal respiratory effort Auscultation: clear to auscultation bilaterally Cardio: Jugular venous distension: no JVD Rate: regular rate Rhythm: regular rhythm Heart sounds: S1 normal heart sound present and S2 normal heart sound present GI: Palpation (GI): Soft to palpation, Tenderness to palpation present (GI) (tender to palpation of lower abdomen edematous) and Other GI palpation findings present (pitting edema lower abdomen) : General: Yes no CVA tenderness Back/Spine/Pelvis: Back: no CVA tenderness Skin: Lesions: no lesions Rashes: no rashes Neuro: General: moves all extremities Motor exam (neuro): no tremor noted, no asterixis, Motor abnormalites present and Other motor observations present (patient had episode of full-body, transient jerk x1 during examination) Extrem: General: Yes edema (pitting edema lower extremities) Objective Data Labs 09/02/24 05:58 09/02/24 05:58 Labs: Laboratory Results - last 24 hr 08/29/24 08/29/24 09/01/24 16:57 17:31 11:29 WBC RBC Hgb Hct MCV MCH MCHC RDW Plt Count MPV Absolute Nucleated RBC Nucleated RBC % (auto) Sodium Potassium Chloride Carbon Dioxide Anion Gap BUN Creatinine Estim Creat Clear Calc Estimated GFR POC Glucose 217 H Random Glucose Calcium Total Protein (PEP) 6.0 L Albumin (PEP) SEE NOTE Inyee-9-Gzkhwbpmr 0.8 H Lpjyo-1-Rungvnfdq 0.9 Shbz-9-Hvcmaptx 0.4 Rkpq-6-Tuuxwwlr 0.7 H Gamma Globulins 1.9 H PEP Interpretation SEE NOTE U [place] Prot/Creat Ratio 7.441 H Ur Creatinine mg/dL 59 U Total Protein mg/dL 439 H Protein/Creatinin Ratio 7441 H Urine Albumin (%) 37 U Qtqff-0-Oavxuglf (%) 7 U Iplmh-4-Diutvvip (%) 6 U Beta Globulin (%) 7 U Gamma Globulin (%) 43 Urine PEP Interpret SEE NOTE IgG Total 2009 H IgA Total 651 H IgM 55 ABENA Interpretation SEE NOTE Proteinase 3 (PR3) Ab <1.0 Myeloperoxidase Ab <1.0 09/01/24 09/01/24 09/02/24 16:18 21:07 05:58 WBC 31.4 H* RBC 2.83 L Hgb 8.0 L Hct 23.7 L MCV 83.7 MCH 28.3 MCHC 33.8 RDW 15.9 Plt Count 340 MPV 10.9 Absolute Nucleated RBC 0.000 Nucleated RBC % (auto) 0.0 Sodium 133 L Potassium 3.7 Chloride 101 Carbon Dioxide 23 Anion Gap 13 BUN 53 H Creatinine 3.31 H Estim Creat Clear Calc 36.0 Estimated GFR 20 POC Glucose 148 H 169 H Random Glucose 163 H Calcium 6.6 L Total Protein (PEP) Albumin (PEP) Vhpkk-7-Ramkrtney Zoqoh-3-Txapklgok Vxvp-1-Yjrjkhzh Bkch-8-Rmdeslwg Gamma Globulins PEP Interpretation U [place] Prot/Creat Ratio Ur Creatinine mg/dL U Total Protein mg/dL Protein/Creatinin Ratio Urine Albumin (%) U Bgcpm-5-Eguqxiuo (%) U Bgump-4-Phfrsvft (%) U Beta Globulin (%) U Gamma Globulin (%) Urine PEP Interpret IgG Total IgA Total IgM ABENA Interpretation Proteinase 3 (PR3) Ab Myeloperoxidase Ab 09/02/24 07:13 WBC RBC Hgb Hct MCV MCH MCHC RDW Plt Count MPV Absolute Nucleated RBC Nucleated RBC % (auto) Sodium Potassium Chloride Carbon Dioxide Anion Gap BUN Creatinine Estim Creat Clear Calc Estimated GFR POC Glucose 164 H Random Glucose Calcium Total Protein (PEP) Albumin (PEP) Lecsp-0-Rgqpaaohi Ahkmu-6-Tvcbztyet Jujq-0-Oankrpfy Duxk-4-Kmgwflcz Gamma Globulins PEP Interpretation U [place] Prot/Creat Ratio Ur Creatinine mg/dL U Total Protein mg/dL Protein/Creatinin Ratio Urine Albumin (%) U Nwlfz-9-Vvqxeoix (%) U Kzzkl-6-Jlqeyaxw (%) U Beta Globulin (%) U Gamma Globulin (%) Urine PEP Interpret IgG Total IgA Total IgM ABENA Interpretation Proteinase 3 (PR3) Ab Myeloperoxidase Ab Microbiology Microbiology Results: Microbiology 08/29/24 14:03 Blood - Venous Blood Culture - Preliminary No growth after 48 hours. 08/29/24 14:03 Blood - Venous Blood Culture - Preliminary No growth after 48 hours. 08/29/24 Unknown Urine clean catch - Clean Catch Midstream Urine Culture - Final No growth. 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 diff patient remains fluid overloaded Will ultrafiltrate to remove 2-3L (or more if tolerating) today pt had right IJ trialysis catheter placed by IR 08/30 and is intact without erythema. H&H is low, likely related to CKD, 10,000 units of epogen administered with HD 08/31 no metabolic acidosis potassium within normal limits Calcium 6.6, PTH 7.46. Calcitriol 0.25mg daily Phosphorous elevated at 7.4, sevelamer 800mg TID with meals patient remains fluid-overloaded, will remove 2-3L+ as tolerated Continue close monitoring of electrolytes, blood pressure, urine output Will continue to follow closely Discussed with Dr Cagle Time Spent With Patient Time: Total time managing care of this patient today ____ minutes. Progress Note: Quality Stroke Does the patient have a stroke diagnosis?: No
[2024-09-02 13:15] LABS: Glucose, Whole Blood 162 mg/dL (60-115)
[2024-09-02] MEDS: Heparin Sodium,Porcine 5,000 UNIT/ML VIAL 5000 UNIT SUBCUT (13:24)
[2024-09-02] MEDS: Albuterol/Iprat 2.5/0.5MG 3 ML AMPUL.NEB INHALE (14:26)
--- NOTE | 2024-09-02 14:27 | HO.PM.IMPN ---
Subjective Subjective Date of Service: 09/02/24 Interval History: Seen and evaluated this morning Feels better as swelling going down Creatinine improving , tolerated HD for ultrafiltration today No other overnight events Review of Systems Review of Systems: Yes all other systems are reviewed and are negative Physical Exam Vital Signs: Vital Signs: Last Vital Signs Temp 98.1 F 09/02/24 13:14 Pulse 99 09/02/24 13:14 Resp 18 09/02/24 13:14 BP 125/60 09/02/24 13:14 Pulse Ox 95 09/02/24 13:14 O2 Del Method Room Air 09/02/24 13:14 O2 Flow Rate 2 08/30/24 02:00 BMI result Body Mass Index 39.8 Const: Other: Constitutional : Awake, interactive, not in distress Neck : Normal inspection, Supple Cardiovascular : RRR, no JVP, no lower extremity edema Respiratory : good bilateral air entry, no crackles, wheezes or rhonchi Gastrointestinal: soft, lax, Normal bowel sounds, Non tender Skin : Warm, Dry, multiple skin picking gabriel, BKA right, LLE callus with dry skin, Dialysis catheter in place , Urinary: scrotal swelling improving Neurological : Alert & oriented x3, No focal deficit Objective Data Active Medications Acetaminophen (Acetaminophen 325 Mg Tablet) 650 mg PO Q6H PRN PRN Reason: Pain, Mild (Pain Scale 1-3), fever or headache Last Admin: 08/31/24 08:32 Dose: 650 mg Documented By: DENNY Albuterol/Ipratropium (Albuterol/Iprat 2.5/0.5mg 3 Ml Ampul.Neb) 3 ml INHALE Q4H PRN PRN Reason: Wheezing Last Admin: 09/02/24 14:26 Dose: 3 ml Documented By: RICHIE Benzocaine (Throat Lozenge, Medicated Lozenge) 1 lozenge MUCOUS MEM Q2H PRN PRN Reason: Sore Throat Last Admin: 09/01/24 13:46 Dose: 1 lozenge Documented By: GAYATRI Calcitriol (Calcitriol 0.25 Mcg Capsule) 0.25 mcg PO DAILY LYSSA Last Admin: 09/02/24 08:43 Dose: 0.25 mcg Documented By: STEFANI Calcium Carbonate (Calcium Carbonate 750 Mg Tab.Chew) 750 mg PO Q4H PRN PRN Reason: Heartburn Last Admin: 08/31/24 12:23 Dose: 750 mg Documented By: HERIPASheryl Docusate Sodium (Docusate Sodium 100 Mg Capsule) 100 mg PO BID [facility] Last Admin: 09/02/24 08:43 Dose: 100 mg Documented By: STEFANI Glucose (Glucose Gel 15 Gm Gel..Gram.) 15 gm PO Q15M PRN; Protocol PRN Reason: per Hypoglycemia Standing Ord. Guaifenesin/Codeine Phosphate (Guaifen/Codeine Sf 200/20/10ml 10 Ml Liquid) 5 ml PO Q6H PRN PRN Reason: Cough Last Admin: 09/02/24 00:35 Dose: 5 ml Documented By: CORONA Heparin Sodium (Porcine) (Heparin Sodium,Porcine 5,000 Unit/Ml Vial) 5,000 unit SUBCUT Q12H [facility] Last Admin: 09/02/24 13:24 Dose: 5,000 unit Documented By: STEFANI Dextrose (D10) 250 mls @ 750 mls/hr IV Q15M PRN; Protocol PRN Reason: per Hypoglycemia Standing Ord. Insulin Human Lispro (Insulin Lispro 100 Unit/Ml 3 Ml Vial) 0 unit SUBCUT QIDACHS [facility]; Protocol Last Admin: 09/02/24 13:24 Dose: 2 unit Documented By: STEFANI Lactulose (Lactulose 20 Gm/30 Ml Solution) 20 gm PO BID [facility] Last Admin: 09/02/24 10:03 Dose: 20 gm Documented By: STEFANI Melatonin (Melatonin 3 Mg Tablet) 6 mg PO BEDTIME PRN PRN Reason: Insomnia Last Admin: 08/31/24 20:09 Dose: 6 mg Documented By: PETE Methadone HCl (Methadone Hcl 20 Mg/2 Ml Oral.Conc) 50 mg PO DAILY@0800 [facility] Last Admin: 09/02/24 08:49 Dose: 50 mg Documented By: STEFANI Co-signed By: GIL Multivitamins/Vitamin C (Multivitamin Tablet) 1 tab PO DAILY [facility] Last Admin: 09/02/24 08:43 Dose: 1 tab Documented By: STEFANI Nicotine (Nicotine 14 Mg Patch.Td24) 14 mg TRANSDERMA DAILY [facility] Last Admin: 09/02/24 08:45 Dose: 14 mg Documented By: STEFANI Ondansetron HCl (Ondansetron Hcl 4 Mg/2 Ml Vial) 4 mg IVPUSH Q8H PRN PRN Reason: Nausea and Vomiting Last Admin: 08/31/24 11:09 Dose: 4 mg Documented By: DENNY Oxycodone HCl (Oxycodone Hcl Immed Release 5 Mg Tablet) 5 mg PO Q4H PRN PRN Reason: Pain, Severe (Pain Scale 7-10) Last Admin: 09/02/24 14:01 Dose: 5 mg Documented By: STEFANI Psyllium Hydrophilic Mucilloid (Psyllium Seed 3.7 Gm Packet) 3.7 gm PO DAILY [facility] Last Admin: 09/02/24 10:03 Dose: 3.7 gm Documented By: STEFANI Sevelamer Carbonate (Sevelamer Carbonate Tablet 800 Mg Tablet) 800 mg PO TIDWM [facility] Last Admin: 09/02/24 13:23 Dose: 800 mg Documented By: STEFANI Sodium Chloride (0.9 % Sodium Chloride Flush 3 Ml Syringe) 3 ml IVFLUSH QSHIFT [facility] Last Admin: 09/02/24 10:03 Dose: 3 ml Documented By: STEFANI Labs 09/02/24 05:58 09/02/24 05:58 Labs: Laboratory Results - last 24 hr 08/29/24 08/29/24 09/01/24 16:57 17:31 16:18 MCV MCH MCHC RDW Plt Count MPV Absolute Nucleated RBC Nucleated RBC % (auto) Anion Gap Estim Creat Clear Calc Estimated GFR POC Glucose 148 H Random Glucose Calcium Total Protein (PEP) 6.0 L Albumin (PEP) SEE NOTE Pbzno-3-Wbvocycfh 0.8 H Dvgrj-4-Iuytfcsot 0.9 Kvbo-7-Mlnpjtuz 0.4 Zann-5-Fwileipp 0.7 H Gamma Globulins 1.9 H Abnorm Protein Band 1 TNP Abnorm Protein Band 2 TNP Abnorm Protein Band 3 TNP PEP Interpretation SEE NOTE U [place] Prot/Creat Ratio 7.441 H Ur Creatinine mg/dL 59 U Total Protein mg/dL 439 H Protein/Creatinin Ratio 7441 H Urine Albumin (%) 37 U Vqqsv-7-Hjjwikjc (%) 7 U Pzqxf-9-Ucnbolav (%) 6 U Beta Globulin (%) 7 U Gamma Globulin (%) 43 U Abnormal Prot Band 1 TNP U Abnormal Prot Band 2 TNP U Abnormal Prot Band 3 TNP Urine PEP Interpret SEE NOTE IgG Total 2009 H IgA Total 651 H IgM 55 ABENA Interpretation SEE NOTE Proteinase 3 (PR3) Ab <1.0 Myeloperoxidase Ab <1.0 09/01/24 09/02/24 09/02/24 21:07 05:58 07:13 MCV 83.7 MCH 28.3 MCHC 33.8 RDW 15.9 Plt Count 340 MPV 10.9 Absolute Nucleated RBC 0.000 Nucleated RBC % (auto) 0.0 Anion Gap 13 Estim Creat Clear Calc 36.0 Estimated GFR 20 POC Glucose 169 H 164 H Random Glucose 163 H Calcium 6.6 L Total Protein (PEP) Albumin (PEP) Gdkeh-3-Fbtsueafs Vwjhq-6-Ycaoeyhgy Rxvh-4-Nxcqebun Vckl-0-Lhwtzzjx Gamma Globulins Abnorm Protein Band 1 Abnorm Protein Band 2 Abnorm Protein Band 3 PEP Interpretation U [place] Prot/Creat Ratio Ur Creatinine mg/dL U Total Protein mg/dL Protein/Creatinin Ratio Urine Albumin (%) U Ocvwt-2-Uahurbku (%) U Jsnfq-1-Pztqddwr (%) U Beta Globulin (%) U Gamma Globulin (%) U Abnormal Prot Band 1 U Abnormal Prot Band 2 U Abnormal Prot Band 3 Urine PEP Interpret IgG Total IgA Total IgM ABENA Interpretation Proteinase 3 (PR3) Ab Myeloperoxidase Ab 09/02/24 13:12 MCV MCH MCHC RDW Plt Count MPV Absolute Nucleated RBC Nucleated RBC % (auto) Anion Gap Estim Creat Clear Calc Estimated GFR POC Glucose 162 H Random Glucose Calcium Total Protein (PEP) Albumin (PEP) Qokvq-8-Jlzguvidj Dgnzy-5-Uozbrhyvx Egvi-3-Dsegqnqy Ayil-0-Ainnwkfb Gamma Globulins Abnorm Protein Band 1 Abnorm Protein Band 2 Abnorm Protein Band 3 PEP Interpretation U [place] Prot/Creat Ratio Ur Creatinine mg/dL U Total Protein mg/dL Protein/Creatinin Ratio Urine Albumin (%) U Waxgq-4-Nqivknel (%) U Ddyrd-9-Fpwnpvyn (%) U Beta Globulin (%) U Gamma Globulin (%) U Abnormal Prot Band 1 U Abnormal Prot Band 2 U Abnormal Prot Band 3 Urine PEP Interpret IgG Total IgA Total IgM ABENA Interpretation Proteinase 3 (PR3) Ab Myeloperoxidase Ab Assessment and Plan (1) Polysubstance abuse: Status: Acute (2) Opioid use disorder, severe, dependence: Status: Acute (3) Hyperglycemia due to type 2 diabetes mellitus: Status: Acute (4) Acute renal failure: Status: Acute Plan 44M PMH hypertension, hyperlipidemia, diabetes, CKD 3, polysubstance dependence, history of peripheral vascular disease presented with weakness found to have merlin, anemia, leukocysotis, acidosis acute metabolic encephalopathy due to uremic encephalopathy due to MERLIN on CKD 3 complicated by acute metabolic acidosis, mentation improved back to baseline Elevated IgG, IGA, normal compliment level and PR3, MP follow-up BMP Cr improving to 3.3 catheter placement 08/30/24 and started dialysis, to do UF today Nephrology input appreciated, will likely need kidney biopsy Acute on chronic anemia with Leukocytosis WBC stable at 29k Hb improved to 8.1 after 3 units transfusion no clear source of infection, no sepsis Question leukemoid reaction or underlying malignancy? Anemia of chronic diseases? Inflammatory? Elevated LDH, Haptoglobin check Echo to r\o vegetation hematology input appreciated, BCR-ABL gene 10,000 units of epogen with HD given Acute hypocalcemia corrected at 7.9 replacement given Elevated PTH, start Calcitriol Hx drug abuse U.Tox +ve for Cocaine, Opiates, Fentanyl and Oxy Addiciton team following Methadone started Diabetes II Insulin sliding scale Hypertension Hold BP meds for now Scrotal swelling secondary to fluid overload support, dialysis, monitor DVT prophylaxis start Heparin SC Full code reason for continued hospitalization:severe merlin requiring Dialysis, blood trnasfusion Quality Stroke Does the patient have a stroke diagnosis?: No VTE Prior VTE?: No VTE Risk Level:: Medical - moderate - high VTE Device Contraindication: N/A - Device Ordered VTE Drug Contraindication: Treatment Not Indicated
--- NOTE | 2024-09-02 14:48 | MHC.RECOVRN ---
Met with pt to follow up after receiving 50 mg methadone this morning. Pt laying in bed, awake, alert, easily engages in conversation. Pts mother present with pts permission. Pt reports feeling good, denies withdrawal symptoms. Pt denies questions or concerns for t/w. Catina Cantu APRN, aware.
[2024-09-02 16:15] LABS: Glucose, Whole Blood 209 mg/dL (60-115)
[2024-09-02 20:35] LABS: Glucose, Whole Blood 197 mg/dL (60-115)
[2024-09-03] VITALS (8 sets, daily range): BP systolic 130–147; BP diastolic 61–69; PULSE 68–98; RESP 16–20; TEMP 36–37.1; O2SAT 92–97
[2024-09-03] MEDS: Heparin Sodium,Porcine 5,000 UNIT/ML VIAL 5000 UNIT SUBCUT ×3 (01:30→21:53)
[2024-09-03] MEDS: Calcium Carbonate 750 MG TAB.CHEW PO (04:50)
[2024-09-03 06:56] LABS: Anion Gap 16 (12-20); Blood Urea Nitrogen 63 mg/dL (9-16); Calcium 6.3 mg/dL (8.4-10.2); Carbon Dioxide 20 mmol/L (22-29); Chloride 99 mmol/L (96-108); Creatinine Clr Calc Pharmacy 31.1; Estimated Glomerular Filt Rate 17; Glucose Random 224 mg/dL (60-115); Phosphorus 6.8 mg/dL (2.7-4.5); Potassium 3.8 mmol/L (3.3-5.1); Sodium 131 mmol/L (135-145)
--- NOTE | 2024-09-03 07:00 | CA_ITS ---
Transthoracic Echocardiogram Patient (Last, First, Middle): Deandre Luong M Gender: Male Date of : 1980 Age: 44 Procedure Date: 09/03/2024 Procedure Type: Transthoracic Echocardiogram Location: [facility] [place] Height: 175.26 cm Weight: 122.02 kg BSA: 2.34 m2 Heart Rate: 96 bpm BP: 148 / 82 mmHg Tax Attorney: SB Referring MD: Liborio Ro MD Symptoms: Leukocytosis , IVDU, r o vegetations Study Quality: Adequate ECG Rhythm: Sinus Conclusions: - The left ventricular systolic function is mildly decreased. The calculated ejection fraction is 43% by biplane method. - No obvious valvular pathology seen on this study. Findings Left Ventricle Normal left ventricular cavity size. There is mildly increased left ventricular wall thickness. The left ventricular systolic function is mildly decreased. The calculated ejection fraction is 43% by biplane method. There is mild global hypokinesis. Diastolic function is normal for age. Right Ventricle The right ventricle was not well visualized. There is normal right ventricular systolic function. Atria Both atria are normal in size. Aortic Valve There is a normal trileaflet aortic valve. There is no aortic valve stenosis. There is no aortic valve regurgitation. Mitral Valve The mitral valve appears normal. There is no mitral valve regurgitation. There is no mitral valve stenosis. Pulmonic Valve The pulmonic valve is likely normal. Tricuspid Valve The tricuspid valve was not well visualized. There is trace tricuspid valve regurgitation. Tricuspid regurgitation envelope is inadequate for calculation of right ventricular systolic pressure. Great Vessels The asc aorta is normal in size. Venous The inferior vena cava is normal in size and collapses less than 50% with inspiration. Pericardium/Pleural There is a small pericardial effusion. There are no definitive echocardiographic findings of tamponade physiology. Recommendations, Care & Conclusions No obvious valvular pathology seen on this study. Consider a GLORIA if clinically appropriate. Measurements 2D Linear Measurements IVSd: 1.15 0.6-0.9/0.6-1.0 cm LVIDd: 4.96 3.9-5.3/4.2-5.9 cm LVIDd Index: 2.12 2.4-3.2/2.2-3.1 cm/m2 LVIDs: 3.58 2.0-3.6 cm LVPWd: 1.26 0.7-1.1 cm LA Diam: 3.50 2.7-3.8/3.0-4.0 cm LAIDs Index: 1.50 1.5-2.3 cm/m2 LV Mass: 289.42 67-162/88-224 g LV Mass Index: 123.69 43-95/49-115 g/m2 LVOT Diam: 2.60 3.0+(-)1.3 cm 2D Systolic Function EF 4C: 44.70 >55% EF 2C: 42.00 >55% EF BiP: 43.40 >55% Mitral Valve MV Pk E: 1.09 MV PK A: 0.95 MV Decel Time: 113.00 E/A: 1.10 E'Lateral: 8.49 E'Medial: 7.18 E/E' Med: 15.20 E/E' Lat: 12.80 PHT: 33.00 MVA PHT: 6.67 Decel Howard: 9.62 Aortic Valve AoV Pk Sanchez: 1.06 AoV Pk Grad: 4.00 IGLESIA: 5.31 LVOT LVOT Pk Sanchez: 1.12 LVOT Mn Sanchez: 0.75 LVOT VTI: 0.20 LVOT Pk Grad: 5.00 LVOT Mn Grad: 3.00 LVOT Diam: 2.60 LVOT Area: 5.31 Diastolic Function MV Pk E: 1.09 MV Pk A: 0.95 E/A: 1.10 E'Medial: 7.18 E/E' Med: 15.20 E' Laterial: 8.49 E/E' Lat: 12.80 Right Ventricle TAPSE (mm): 22.30 TVS' Sanchez: 18.20 Tricuspid Valve RA Press: 3.00 Great Vessels Aorta Sinus of Valsalva: 3.90 2.0-3.5 cm Ao Asc: 3.70 2.1-3.4 cm Pulmonary Valve PV Pk Sanchez: 1.13 Peak PV Grad: 5.00 Updated in Other Vendor System with Status of Final Alban Lopez MD electronically signed on 09/03/2024 12:12:07 PM with status of Final
[2024-09-03 07:02] LABS: Hemoglobin 7.3 g/dl (14.0-18.0); Mean Corpuscular HGB Conc 33.2 g/dl (31.0-36.0); Mean Corpuscular Hemoglobin 28.2 pg (27.0-33.0); Mean Corpuscular Volume 84.9 fL (80.0-98.0); Mean Platelet Volume 11.1 fL (9.4-12.4); NRBC Pct Auto 0.1 /100WBC (0.0-0.2); Platelet Count 315 X10*3/uL (160-400); Red Blood Count 2.59 X10*6/uL (4.60-5.80); Red Cell Distribution Width 16.5 % (11.0-16.0); White Blood Count 28.9 X10*3/uL (4.8-10.8)
[2024-09-03 07:48] LABS: Glucose, Whole Blood 172 mg/dL (60-115)
[2024-09-03] MEDS: methADONE HCl 20 MG/2 ML ORAL.CONC 50 MG PO (08:08)
[2024-09-03] MEDS: Multivitamin TABLET 1 TAB PO (08:24)
[2024-09-03] MEDS: calcitrioL 0.25 MCG CAPSULE PO (08:24)
[2024-09-03] MEDS: Nicotine 14 MG PATCH.TD24 TRANSDERMA (08:24)
[2024-09-03] MEDS: Sevelamer Carbonate Tablet 800 MG TABLET PO (08:24)
[2024-09-03] MEDS: Psyllium seed 3.7 GM PACKET PO (08:24)
[2024-09-03] MEDS: 0.9 % Sodium Chloride Flush 3 ML SYRINGE IVFLUSH ×3 (08:25→21:53)
[2024-09-03] MEDS: Insulin Lispro 100 UNIT/ML 3 ML VIAL SUBCUT ×3 (08:25→21:52)
[2024-09-03] MEDS: Docusate Sodium 100 MG CAPSULE PO ×2 (08:25→21:52)
[2024-09-03] MEDS: Lactulose 20 GM/30 ML SOLUTION PO ×2 (08:25→21:52)
--- NOTE | 2024-09-03 10:07 | P.PNNP_ITS ---
Subjective Subjective Date of Service: 09/03/24 Interval history: 44 y/o male with a medical history of HTN, HLD, CKD3, polysubstance dependence, PVD. 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 He presented on 08/29 with weakness, abdominal bloating, lower extremity edema/pain. creatinine 6.79 on 08/29 (previous creatinine 2.02 from 1 year ago), started HD on 08/30; creatinine 09/03 is 3.38, 3.31 on 09/02 (ultrafiltration and removed 4kg on 09/02); BUN 63 09/03 potassium 3.8 09/03 sodium 129 08/29, 131 08/30, 133 08/31, 133 09/02, 131 09/03 serum bicarb 20 on 09/03 (down from 23 yesterday) urine prot/creat ratio 7.441 on 08/29; UPEP pending. No blood in urine from 08/29 CT abd/pelvis on 08/29 showed no hydronephrosis, kidneys/ureters unremarkable, showed diffuse anasarca and pulmonary edema. Liver unremarkable. pt had right IJ trialysis catheter placed by IR 08/30, received HD 08/30, 08/31, 09/01. Patient today is alert and oriented states his breathing feels comfortable today denies chest pain, abdominal pain, flank pain states swelling has continued to improve in abdomen, scrotum, lower extremities denies muscle cramping, tremors, jerking movements denies pruritus, nausea, vomiting pt is making urine (verde), 425mL over last 24 hours Physical Exam 2 Vital Signs: Vital Signs: Last Vital Signs Temp 98.2 F 09/03/24 07:49 Pulse 97 09/03/24 09:51 Resp 18 09/03/24 07:49 BP 137/64 09/03/24 09:51 Pulse Ox 97 09/03/24 09:51 O2 Del Method Room Air 09/03/24 07:49 O2 Flow Rate 2 08/30/24 02:00 BMI result Body Mass Index 39.8 Const: General: no acute distress, alert and awake Resp: Effort & Inspection: normal respiratory effort Auscultation: clear to auscultation bilaterally Cardio: Jugular venous distension: no JVD Rate: regular rate Rhythm: r egular rhythm Heart sounds: S1 normal heart sound present and S2 normal heart sound present GI: Palpation (GI): Soft to palpation, Tenderness to palpation present (GI) (tender to palpation of lower abdomen edematous) and Other GI palpation findings present (pitting edema lower abdomen improving ) : General: Yes no CVA tenderness Back/Spine/Pelvis: Back: no CVA tenderness Skin: Lesions: no lesions Rashes: no rashes Neuro: General: moves all extremities Motor exam (neuro): no tremor noted, no asterixis, Motor abnormalites present and Other motor observations present (patient had episode of full-body, transient jerk x1 during examination) Extrem: General: Yes edema (pitting edema lower extremities) Objective Data Labs 09/03/24 06:21 09/03/24 06:21 Labs: Laboratory Results - last 24 hr 08/29/24 08/29/24 09/02/24 16:57 17:31 13:12 WBC RBC Hgb Hct MCV MCH MCHC RDW Plt Count MPV Absolute Nucleated RBC Nucleated RBC % (auto) Sodium Potassium Chloride Carbon Dioxide Anion Gap BUN Creatinine Estim Creat Clear Calc Estimated GFR POC Glucose 162 H Random Glucose Calcium Phosphorus Abnorm Protein Band 1 TNP Abnorm Protein Band 2 TNP Abnorm Protein Band 3 TNP U Abnormal Prot Band 1 TNP U Abnormal Prot Band 2 TNP U Abnormal Prot Band 3 TNP 09/02/24 09/02/24 09/03/24 16:12 20:31 06:21 WBC 28.9 H RBC 2.59 L Hgb 7.3 L Hct 22.0 L MCV 84.9 MCH 28.2 MCHC 33.2 RDW 16.5 H Plt Count 315 MPV 11.1 Absolute Nucleated RBC 0.020 H Nucleated RBC % (auto) 0.1 Sodium 131 L Potassium 3.8 Chloride 99 Carbon Dioxide 20 L Anion Gap 16 BUN 63 H Creatinine 3.83 H Estim Creat Clear Calc 31.1 Estimated GFR 17 POC Glucose 209 H 197 H Random Glucose 224 H Calcium 6.3 L Phosphorus 6.8 H Abnorm Protein Band 1 Abnorm Protein Band 2 Abnorm Protein Band 3 U Abnormal Prot Band 1 U Abnormal Prot Band 2 U Abnormal Prot Band 3 09/03/24 07:44 WBC RBC Hgb Hct MCV MCH MCHC RDW Plt Count MPV Absolute Nucleated RBC Nucleated RBC % (auto) Sodium Potassium Chloride Carbon Dioxide Anion Gap BUN Creatinine Estim Creat Clear Calc Estimated GFR POC Glucose 172 H Random Glucose Calcium Phosphorus Abnorm Protein Band 1 Abnorm Protein Band 2 Abnorm Protein Band 3 U Abnormal Prot Band 1 U Abnormal Prot Band 2 U Abnormal Prot Band 3 Microbiology Microbiology Results: Microbiology 08/29/24 14:03 Blood - Venous Blood Culture - Preliminary No growth after 48 hours. 08/29/24 14:03 Blood - Venous Blood Culture - Preliminary No growth after 48 hours. 08/29/24 Unknown Urine clean catch - Clean Catch Midstream Urine Culture - Final No growth. Procedures Date of Service Date of Service: 09/03/24 Assessment & Plan Assessment and plan (1) Acute renal failure: Status: Acute (2) MERLIN (acute kidney injury): Status: Acute (3) CKD (chronic kidney disease) stage 3, GFR 30-59 ml/min: Status: Acute Plan Patient with MERLIN on proteinuric CKD Most likely CKD3b 2/2 diabetic nephropathy at baseline, now with MERLIN on CKD likely tubular injury Unlikely AIN given lack of RBCs in urine Patient has tested positive for cocaine, differential includes cocaine-induced injury Recommend TTE- though white count most likely leukemoid reaction should assess for presence of vegetation; should also check for c. diff patient remains fluid overloaded but continues to improve Will get HD today, remove 2-3L and plan to hold for the and see how renal function does without HD through Friday pt had right IJ trialysis catheter placed by IR 08/30 and is intact without erythema. H&H is low, likely related to CKD, 10,000 units of epogen administered with HD 08/31 has mild metabolic acidosis today potassium within normal limits Calcium 6.3, PTH 7.46. Calcitriol 0.25mg daily Phosphorous elevated at 6.8 with sevelamer- will discontinue sevelamer and start calcium acetate 667mg x2 pills TID with meals patient remains fluid-overloaded, will remove 2-3L+ as tolerated Continue close monitoring of electrolytes, blood pressure, urine output Will continue to follow closely Discussed with Dr Cagle Time Spent With Patient Time: Total time managing care of this patient today ____ minutes. Progress Note: Quality Stroke Does the patient have a stroke diagnosis?: No
--- NOTE | 2024-09-03 12:49 | P.PNIM_ITS ---
Subjective Subjective Date of Service: 09/03/24 Interval History: Seen and evaluated this morning Feels better as swelling going down Creatinine went up after not doing HD yesterday for HD today No other overnight events Review of Systems Review of Systems: Yes all other systems are reviewed and are negative Physical Exam 2 Vital Signs: Vital Signs: Last Vital Signs Temp 98.2 F 09/03/24 07:49 Pulse 97 09/03/24 09:51 Resp 18 09/03/24 07:49 BP 137/64 09/03/24 09:51 Pulse Ox 97 09/03/24 09:51 O2 Del Method Room Air 09/03/24 07:49 O2 Flow Rate 2 08/30/24 02:00 BMI result Body Mass Index 39.8 Const: Other: Constitutional : Awake, interactive, not in distress Neck : Normal inspection, Supple Cardiovascular : RRR, no JVP, no lower extremity edema Respiratory : good bilateral air entry, no crackles, wheezes or rhonchi Gastrointestinal: soft, lax, Normal bowel sounds, Non tender Skin : Warm, Dry, multiple skin picking gabriel, BKA right, LLE callus with dry skin, Dialysis catheter in place , Urinary: scrotal swelling improving Neurological : Alert & oriented x3, No focal deficit Objective Data Active Medications Acetaminophen (Acetaminophen 325 Mg Tablet) 650 mg PO Q6H PRN PRN Reason: Pain, Mild (Pain Scale 1-3), fever or headache Last Admin: 08/31/24 08:32 Dose: 650 mg Documented By: DENNY Albuterol/Ipratropium (Albuterol/Iprat 2.5/0.5mg 3 Ml Ampul.Neb) 3 ml INHALE Q4H PRN PRN Reason: Wheezing Last Admin: 09/02/24 14:26 Dose: 3 ml Documented By: RICHIE Benzocaine (Throat Lozenge, Medicated Lozenge) 1 lozenge MUCOUS MEM Q2H PRN PRN Reason: Sore Throat Last Admin: 09/01/24 13:46 Dose: 1 lozenge Documented By: GAYATRI Calcitriol (Calcitriol 0.25 Mcg Capsule) 0.25 mcg PO DAILY [facility] Last Admin: 09/03/24 08:24 Dose: 0.25 mcg Documented By: STEFANI Calcium Carbonate (Calcium Carbonate 750 Mg Tab.Chew) 750 mg PO Q4H PRN PRN Reason: Heartburn Last Admin: 09/03/24 04:50 Dose: 750 mg Documented By: FLORY Docusate Sodium (Docusate Sodium 100 Mg Capsule) 100 mg PO BID [facility] Last Admin: 09/03/24 08:25 Dose: 100 mg Documented By: STEFANI Glucose (Glucose Gel 15 Gm Gel..Gram.) 15 gm PO Q15M PRN; Protocol PRN Reason: per Hypoglycemia Standing Ord. Guaifenesin/Codeine Phosphate (Guaifen/Codeine Sf 200/20/10ml 10 Ml Liquid) 5 ml PO Q6H PRN PRN Reason: Cough Last Admin: 09/02/24 00:35 Dose: 5 ml Documented By: CORONA Heparin Sodium (Porcine) (Heparin Sodium,Porcine 5,000 Unit/Ml Vial) 5,000 unit SUBCUT Q12H [facility] Last Admin: 09/03/24 01:30 Dose: 5,000 unit Documented By: FLORY Dextrose (D10) 250 mls @ 750 mls/hr IV Q15M PRN; Protocol PRN Reason: per Hypoglycemia Standing Ord. Insulin Human Lispro (Insulin Lispro 100 Unit/Ml 3 Ml Vial) 0 unit SUBCUT QIDACHS [facility]; Protocol Last Admin: 09/03/24 11:55 Dose: Not Given Documented By: STEFANI Non-Admin Reason: Off unit: Dialysis Lactulose (Lactulose 20 Gm/30 Ml Solution) 20 gm PO BID [facility] Last Admin: 09/03/24 08:25 Dose: 20 gm Documented By: STEFANI Melatonin (Melatonin 3 Mg Tablet) 6 mg PO BEDTIME PRN PRN Reason: Insomnia Last Admin: 08/31/24 20:09 Dose: 6 mg Documented By: PETE Methadone HCl (Methadone Hcl 20 Mg/2 Ml Oral.Conc) 50 mg PO DAILY@0800 [facility] Last Admin: 09/03/24 08:08 Dose: 50 mg Documented By: STEFANI Co-signed By: CULLEN Multivitamins/Vitamin C (Multivitamin Tablet) 1 tab PO DAILY [facility] Last Admin: 09/03/24 08:24 Dose: 1 tab Documented By: STEFANI Nicotine (Nicotine 14 Mg Patch.Td24) 14 mg TRANSDERMA DAILY [facility] Last Admin: 09/03/24 08:24 Dose: 14 mg Documented By: STEFANI Ondansetron HCl (Ondansetron Hcl 4 Mg/2 Ml Vial) 4 mg IVPUSH Q8H PRN PRN Reason: Nausea and Vomiting Last Admin: 08/31/24 11:09 Dose: 4 mg Documented By: SZOTPAT Oxycodone HCl (Oxycodone Hcl Immed Release 5 Mg Tablet) 5 mg PO Q4H PRN PRN Reason: Pain, Severe (Pain Scale 7-10) Last Admin: 09/02/24 14:01 Dose: 5 mg Documented By: STEFANI Psyllium Hydrophilic Mucilloid (Psyllium Seed 3.7 Gm Packet) 3.7 gm PO DAILY [facility] Last Admin: 09/03/24 08:24 Dose: 3.7 gm Documented By: STEFANI Sevelamer Carbonate (Sevelamer Carbonate Tablet 800 Mg Tablet) 800 mg PO TIDWM [facility] Last Admin: 09/03/24 08:24 Dose: 800 mg Documented By: STEFANI Sodium Chloride (0.9 % Sodium Chloride Flush 3 Ml Syringe) 3 ml IVFLUSH QSHIFT [facility] Last Admin: 09/03/24 08:25 Dose: 3 ml Documented By: STEFANI Labs 09/03/24 06:21 09/03/24 06:21 Labs: Laboratory Results - last 24 hr 09/02/24 09/02/24 09/02/24 13:12 16:12 20:31 MCV MCH MCHC RDW Plt Count MPV Absolute Nucleated RBC Nucleated RBC % (auto) Anion Gap Estim Creat Clear Calc Estimated GFR POC Glucose 162 H 209 H 197 H Random Glucose Calcium Phosphorus 09/03/24 09/03/24 06:21 07:44 MCV 84.9 MCH 28.2 MCHC 33.2 RDW 16.5 H Plt Count 315 MPV 11.1 Absolute Nucleated RBC 0.020 H Nucleated RBC % (auto) 0.1 Anion Gap 16 Estim Creat Clear Calc 31.1 Estimated GFR 17 POC Glucose 172 H Random Glucose 224 H Calcium 6.3 L Phosphorus 6.8 H Assessment and Plan (1) Constipation: Status: Acute (2) Callus of foot: Status: Acute (3) Acute renal failure: Status: Acute (4) Anemia: Status: Acute Plan 44M PMH hypertension, hyperlipidemia, diabetes, CKD 3, polysubstance dependence, history of peripheral vascular disease presented with weakness found to have merlin, anemia, leukocysotis, acidosis acute metabolic encephalopathy due to uremic encephalopathy due to MERLIN on CKD 3 complicated by acute metabolic acidosis, mentation improved back to baseline catheter placement 08/30/24 and started dialysis Elevated IgG, IGA, normal compliment level and PR3, MP follow-up BMP Cr to 3.6, to do HD today then HD holiday over the weekend Nephrology input appreciated, will likely need kidney biopsy Acute on chronic anemia with Leukocytosis WBC stable at 29 Hb dropped to 7.4 after 3 units transfusion no clear source of infection, no sepsis Likely leukemoid reaction per peripheral smear Elevated LDH, Haptoglobin check Echo to r\o vegetation hematology input appreciated, BCR-ABL gene 10,000 units of epogen with HD given Acute hypocalcemia corrected at 7.9 replacement given Elevated PTH, start Calcitriol Hx drug abuse U.Tox +ve for Cocaine, Opiates, Fentanyl and Oxy Addiciton team following Methadone started Diabetes II Insulin sliding scale Hypertension Hold BP meds for now Scrotal swelling secondary to fluid overload support, dialysis, monitor DVT prophylaxis start Heparin SC Full code reason for continued hospitalization:severe merlin requiring Dialysis, blood trnasfusion Quality Stroke Does the patient have a stroke diagnosis?: No VTE Prior VTE?: No VTE Risk Level:: Medical - moderate - high VTE Device Contraindication: N/A - Device Ordered VTE Drug Contraindication: Treatment Not Indicated
--- NOTE | 2024-09-03 14:25 | HO.ADDICTPRO ---
Subjective Subjective Date of Service: 09/03/24 Reason For Visit: angelo Interim History: Patient seen in follow up In dialysis at time of interview Appearing comfortable, alert, oriented Reports current dose of methadone is adequate Discussed transitioning to buprenorphine due to multiple factors, including patients difficulty with ambulating and challenges that may come with presenting to OTP Patient agreeable, stated he has taken Suboxone in the past. Explained transition process. Review of Systems Constitutional: Reports as per HPI Mental Status Exam Mental Status Exam Patient Appearance: Appropriate Level of Consciousness: Awake, Appropriate and Alert Patient Behavior: Appropriate and Cooperative Mood Description: Calm Affect Description: Calm Diagnostics Vital Signs (24Hr): Vital Signs - 24 hr 09/02/24 14:26 09/02/24 15:45 09/02/24 19:31 Temperature 97.8 F 99.3 F Pulse Rate 91 99 100 Respiratory Rate 19 22 H 20 Blood Pressure 131/66 141/77 H Pulse Oximetry 97 100 Oxygen Delivery Method Room Air Room Air 09/03/24 00:00 09/03/24 04:00 09/03/24 07:49 Temperature 98.7 F 98.6 F 98.2 F Pulse Rate 95 90 97 Respiratory Rate 18 18 18 Blood Pressure 132/65 130/61 137/64 Pulse Oximetry 97 96 97 Oxygen Delivery Method Room Air Room Air Room Air 09/03/24 09:51 Temperature Pulse Rate 97 Respiratory Rate Blood Pressure 137/64 Pulse Oximetry 97 Oxygen Delivery Method BMI result Body Mass Index 39.8 Labs 09/03/24 06:21 09/03/24 06:21 Labs: Laboratory Results - last 48 hr 08/29/24 08/29/24 09/01/24 16:57 17:31 16:18 WBC RBC Hgb Hct MCV MCH MCHC RDW Plt Count MPV Absolute Nucleated RBC Nucleated RBC % (auto) Sodium Potassium Chloride Carbon Dioxide Anion Gap BUN Creatinine Estim Creat Clear Calc Estimated GFR POC Glucose 148 H Random Glucose Calcium Phosphorus Total Protein (PEP) 6.0 L Albumin (PEP) SEE NOTE Xxsng-9-Ocbbhpkkt 0.8 H Oepxy-6-Hwbsxcrll 0.9 Teya-3-Ljnwaahv 0.4 Chvv-1-Yzvnrmoc 0.7 H Gamma Globulins 1.9 H Abnorm Protein Band 1 TNP Abnorm Protein Band 2 TNP Abnorm Protein Band 3 TNP PEP Interpretation SEE NOTE U Brandon Prot/Creat Ratio 7.441 H Ur Creatinine mg/dL 59 U Total Protein mg/dL 439 H Protein/Creatinin Ratio 7441 H Urine Albumin (%) 37 U Mvrhz-6-Cfsydcye (%) 7 U Qycaf-1-Bawdqwkb (%) 6 U Beta Globulin (%) 7 U Gamma Globulin (%) 43 U Abnormal Prot Band 1 TNP U Abnormal Prot Band 2 TNP U Abnormal Prot Band 3 TNP Urine PEP Interpret SEE NOTE IgG Total 2009 H IgA Total 651 H IgM 55 ABENA Interpretation SEE NOTE Proteinase 3 (PR3) Ab <1.0 Myeloperoxidase Ab <1.0 09/01/24 09/02/24 09/02/24 21:07 05:58 07:13 WBC 31.4 H* RBC 2.83 L Hgb 8.0 L Hct 23.7 L MCV 83.7 MCH 28.3 MCHC 33.8 RDW 15.9 Plt Count 340 MPV 10.9 Absolute Nucleated RBC 0.000 Nucleated RBC % (auto) 0.0 Sodium 133 L Potassium 3.7 Chloride 101 Carbon Dioxide 23 Anion Gap 13 BUN 53 H Creatinine 3.31 H Estim Creat Clear Calc 36.0 Estimated GFR 20 POC Glucose 169 H 164 H Random Glucose 163 H Calcium 6.6 L Phosphorus Total Protein (PEP) Albumin (PEP) Wpmin-2-Xoqxwcfje Immox-2-Ukbwcavcb Ocnr-3-Gdnrtmnp Oeql-0-Xvxixbyc Gamma Globulins Abnorm Protein Band 1 Abnorm Protein Band 2 Abnorm Protein Band 3 PEP Interpretation U Brandon Prot/Creat Ratio Ur Creatinine mg/dL U Total Protein mg/dL Protein/Creatinin Ratio Urine Albumin (%) U Ybgzx-8-Cokmniwi (%) U Swrok-6-Aidhzmxe (%) U Beta Globulin (%) U Gamma Globulin (%) U Abnormal Prot Band 1 U Abnormal Prot Band 2 U Abnormal Prot Band 3 Urine PEP Interpret IgG Total IgA Total IgM ABNEA Interpretation Proteinase 3 (PR3) Ab Myeloperoxidase Ab 09/02/24 09/02/24 09/02/24 13:12 16:12 20:31 WBC RBC Hgb Hct MCV MCH MCHC RDW Plt Count MPV Absolute Nucleated RBC Nucleated RBC % (auto) Sodium Potassium Chloride Carbon Dioxide Anion Gap BUN Creatinine Estim Creat Clear Calc Estimated GFR POC Glucose 162 H 209 H 197 H Random Glucose Calcium Phosphorus Total Protein (PEP) Albumin (PEP) Iuneu-7-Mrqyodtlj Zivdx-7-Oxuzbwqlj Chgc-1-Ttkqyydn Gmrb-2-Cvvnmbab Gamma Globulins Abnorm Protein Band 1 Abnorm Protein Band 2 Abnorm Protein Band 3 PEP Interpretation U Brandon Prot/Creat Ratio Ur Creatinine mg/dL U Total Protein mg/dL Protein/Creatinin Ratio Urine Albumin (%) U Pwsab-3-Qmkzpwis (%) U Ihaki-7-Ldpklipj (%) U Beta Globulin (%) U Gamma Globulin (%) U Abnormal Prot Band 1 U Abnormal Prot Band 2 U Abnormal Prot Band 3 Urine PEP Interpret IgG Total IgA Total IgM ABENA Interpretation Proteinase 3 (PR3) Ab Myeloperoxidase Ab 09/03/24 09/03/24 06:21 07:44 WBC 28.9 H RBC 2.59 L Hgb 7.3 L Hct 22.0 L MCV 84.9 MCH 28.2 MCHC 33.2 RDW 16.5 H Plt Count 315 MPV 11.1 Absolute Nucleated RBC 0.020 H Nucleated RBC % (auto) 0.1 Sodium 131 L Potassium 3.8 Chloride 99 Carbon Dioxide 20 L Anion Gap 16 BUN 63 H Creatinine 3.83 H Estim Creat Clear Calc 31.1 Estimated GFR 17 POC Glucose 172 H Random Glucose 224 H Calcium 6.3 L Phosphorus 6.8 H Total Protein (PEP) Albumin (PEP) Qbpdh-4-Bbcpbajdk Aqhmd-5-Brnxorfsi Blps-2-Ioedanlb Cjgm-9-Wvrwwquo Gamma Globulins Abnorm Protein Band 1 Abnorm Protein Band 2 Abnorm Protein Band 3 PEP Interpretation U Brandon Prot/Creat Ratio Ur Creatinine mg/dL U Total Protein mg/dL Protein/Creatinin Ratio Urine Albumin (%) U Bbsoz-8-Xshbrpxc (%) U Mkkij-2-Gkxtiouy (%) U Beta Globulin (%) U Gamma Globulin (%) U Abnormal Prot Band 1 U Abnormal Prot Band 2 U Abnormal Prot Band 3 Urine PEP Interpret IgG Total IgA Total IgM ABENA Interpretation Proteinase 3 (PR3) Ab Myeloperoxidase Ab Imaging Radiology Impressions: ITS Impressions KUB X-Ray 08/29/24 13:25 IMPRESSION: 1. Prominent fecal loading of the ascending colon greatest along its proximal segment measuring up to 10.8 cm. 2. There is air-filled dilatation of the remaining colon measuring up to 8.4 cm. Electronically signed by: Angeles Galeas MD 08/29/2024 01:41 PM EDT Chest X-Ray 08/29/24 13:54 IMPRESSION: 1. Bronchial thickening suggesting infectious/inflammatory etiology. 2. Elevation right hemidiaphragm. 3. Left basilar atelectasis. Electronically signed by: Angeles Galeas MD 08/29/2024 03:07 PM EDT RP Abdomen/Pelvis CT 08/29/24 15:18 IMPRESSION: 1. No hydronephrosis. 2. Partially visualized patchy opacities in bilateral lung bases which may represent edema or infection. 3. Diffuse anasarca. Fleischner guidelines were followed. Electronically signed by: Mike Galan MD 08/29/2024 03:39 PM EDT RP Medications Medications Current Medications Acetaminophen (Acetaminophen 325 Mg Tablet) 650 mg PO Q6H PRN PRN Reason: Pain, Mild (Pain Scale 1-3), fever or headache Last Admin: 08/31/24 08:32 Dose: 650 mg Albuterol/Ipratropium (Albuterol/Iprat 2.5/0.5mg 3 Ml Ampul.Neb) 3 ml INHALE Q4H PRN PRN Reason: Wheezing Last Admin: 09/02/24 14:26 Dose: 3 ml Benzocaine (Throat Lozenge, Medicated Lozenge) 1 lozenge MUCOUS MEM Q2H PRN PRN Reason: Sore Throat Last Admin: 09/01/24 13:46 Dose: 1 lozenge Calcitriol (Calcitriol 0.25 Mcg Capsule) 0.25 mcg PO DAILY [facility] Last Admin: 09/03/24 08:24 Dose: 0.25 mcg Calcium Acetate (Calcium Acetate 667 Mg Capsule) 1,334 mg PO TIDWM [facility] Calcium Carbonate (Calcium Carbonate 750 Mg Tab.Chew) 750 mg PO Q4H PRN PRN Reason: Heartburn Last Admin: 09/03/24 04:50 Dose: 750 mg Docusate Sodium (Docusate Sodium 100 Mg Capsule) 100 mg PO BID [facility] Last Admin: 09/03/24 08:25 Dose: 100 mg Glucose (Glucose Gel 15 Gm Gel..Gram.) 15 gm PO Q15M PRN; Protocol PRN Reason: per Hypoglycemia Standing Ord. Guaifenesin/Codeine Phosphate (Guaifen/Codeine Sf 200/20/10ml 10 Ml Liquid) 5 ml PO Q6H PRN PRN Reason: Cough Last Admin: 09/02/24 00:35 Dose: 5 ml Heparin Sodium (Porcine) (Heparin Sodium,Porcine 5,000 Unit/Ml Vial) 5,000 unit SUBCUT Q12H [facility] Last Admin: 09/03/24 01:30 Dose: 5,000 unit Dextrose (D10) 250 mls @ 750 mls/hr IV Q15M PRN; Protocol PRN Reason: per Hypoglycemia Standing Ord. Insulin Human Lispro (Insulin Lispro 100 Unit/Ml 3 Ml Vial) 0 unit SUBCUT QIDACHS [facility]; Protocol Last Admin: 09/03/24 11:55 Dose: Not Given Lactulose (Lactulose 20 Gm/30 Ml Solution) 20 gm PO BID [facility] Last Admin: 09/03/24 08:25 Dose: 20 gm Melatonin (Melatonin 3 Mg Tablet) 6 mg PO BEDTIME PRN PRN Reason: Insomnia Last Admin: 08/31/24 20:09 Dose: 6 mg Methadone HCl (Methadone Hcl 20 Mg/2 Ml Oral.Conc) 50 mg PO DAILY@0800 [facility] Last Admin: 09/03/24 08:08 Dose: 50 mg Multivitamins/Vitamin C (Multivitamin Tablet) 1 tab PO DAILY [facility] Last Admin: 09/03/24 08:24 Dose: 1 tab Nicotine (Nicotine 14 Mg Patch.Td24) 14 mg TRANSDERMA DAILY [facility] Last Admin: 09/03/24 08:24 Dose: 14 mg Ondansetron HCl (Ondansetron Hcl 4 Mg/2 Ml Vial) 4 mg IVPUSH Q8H PRN PRN Reason: Nausea and Vomiting Last Admin: 08/31/24 11:09 Dose: 4 mg Oxycodone HCl (Oxycodone Hcl Immed Release 5 Mg Tablet) 5 mg PO Q4H PRN PRN Reason: Pain, Severe (Pain Scale 7-10) Last Admin: 09/02/24 14:01 Dose: 5 mg Psyllium Hydrophilic Mucilloid (Psyllium Seed 3.7 Gm Packet) 3.7 gm PO DAILY [facility] Last Admin: 09/03/24 08:24 Dose: 3.7 gm Sodium Chloride (0.9 % Sodium Chloride Flush 3 Ml Syringe) 3 ml IVFLUSH QSHIFT [facility] Last Admin: 09/03/24 08:25 Dose: 3 ml Allergies Allergies Allergy/AdvReac Type Severity Reaction Status Date / Time No Known Allergies Allergy Verified 08/29/24 13:00 [No Known Allergies*] Assessment & Plan Assessment & Plan (1) Opioid use disorder, severe, dependence: Status: Acute Code(s): F11.20 - Opioid dependence, uncomplicated Assessment and Plan: Will start buprenorphine over the weekend Morning bup dose MUST be administered an hour before methadone dose Dosing will be as follows: Day1 (09/04): Suboxone 0.5mg in AM Day 2: (09/05): Suboxone 0.5mg AM and PM Day 3 (09/06): Suboxone 1mg AM and PM Day 4 (09/07): Suboxone 2mg AM and PM Day 5 (09/08): Suboxone 4mg AM and PM Day 6 (09/09): Suboxone 8mg AM LAST DAY OF METHADONE Day 7 (09/10): Suboxone 12mg in AM and dose to be adjusted as needed Case discussed with attending provider Total time managing care of this patient today __35__ minutes.
--- NOTE | 2024-09-03 14:41 | MHC.CM.PN ---
PT recommends STR. Services required HD+ Methadone maintenance programs. Clinical information has been sent to the SNFs. Referrals have been sent to 3 facilities. Patient will transport via BLS.
[2024-09-03] MEDS: oxyCODONE HCl Immed Release 5 MG TABLET PO (14:56)
[2024-09-03 15:17] LABS: Glucose, Whole Blood 158 mg/dL (60-115)
[2024-09-03] MEDS: Calcium Acetate 667 MG CAPSULE 1334 MG PO (17:46)
[2024-09-03 21:41] LABS: Glucose, Whole Blood 237 mg/dL (60-115)
[2024-09-03] MEDS: guaiFEN/Codeine SF 200/20/10ML 10 ML LIQUID 5 ML PO (22:02)
[2024-09-03] MEDS: Albuterol/Iprat 2.5/0.5MG 3 ML AMPUL.NEB INHALE (22:08)
[2024-09-04] VITALS (9 sets, daily range): BP systolic 105–132; BP diastolic 58–63; PULSE 78–94; RESP 12–20; TEMP 36.6–37.4; O2SAT 93–99
[2024-09-04 07:55] LABS: Hematocrit 25.1 % (42.0-52.0); Mean Corpuscular HGB Conc 31.9 g/dl (31.0-36.0); Mean Corpuscular Hemoglobin 28.2 pg (27.0-33.0); Mean Corpuscular Volume 88.4 fL (80.0-98.0); Mean Platelet Volume 11.3 fL (9.4-12.4); Platelet Count 284 X10*3/uL (160-400); Red Blood Count 2.84 X10*6/uL (4.60-5.80); Red Cell Distribution Width 16.6 % (11.0-16.0); White Blood Count 28.3 X10*3/uL (4.8-10.8)
[2024-09-04 08:08] LABS: Glucose, Whole Blood 167 mg/dL (60-115)
[2024-09-04 08:10] LABS: Anion Gap 13 (12-20); Blood Urea Nitrogen 48 mg/dL (9-16); Calcium 6.9 mg/dL (8.4-10.2); Carbon Dioxide 22 mmol/L (22-29); Chloride 102 mmol/L (96-108); Creatinine Clr Calc Pharmacy 37.7; Estimated Glomerular Filt Rate 21; Glucose Random 179 mg/dL (60-115); Potassium 3.8 mmol/L (3.3-5.1); Sodium 133 mmol/L (135-145)
[2024-09-04] MEDS: 0.9 % Sodium Chloride Flush 3 ML SYRINGE IVFLUSH ×3 (09:30→19:37)
[2024-09-04] MEDS: Insulin Lispro 100 UNIT/ML 3 ML VIAL SUBCUT ×3 (09:30→19:50)
[2024-09-04] MEDS: Nicotine 14 MG PATCH.TD24 TRANSDERMA (09:31)
[2024-09-04] MEDS: Buprenorphine/Naloxone 2/0.5mg FILM 0.25 FILM SUBLINGUAL (09:31)
[2024-09-04] MEDS: methADONE HCl 20 MG/2 ML ORAL.CONC 50 MG PO (09:32)
[2024-09-04] MEDS: Calcium Acetate 667 MG CAPSULE 1334 MG PO ×3 (09:32→17:17)
[2024-09-04] MEDS: calcitrioL 0.25 MCG CAPSULE PO (09:32)
[2024-09-04] MEDS: Docusate Sodium 100 MG CAPSULE PO ×2 (09:32→19:31)
[2024-09-04] MEDS: Multivitamin TABLET 1 TAB PO (09:32)
[2024-09-04] MEDS: Lactulose 20 GM/30 ML SOLUTION PO ×2 (10:21→19:52)
[2024-09-04] MEDS: Psyllium seed 3.7 GM PACKET PO (10:21)
[2024-09-04 11:46] LABS: Glucose, Whole Blood 182 mg/dL (60-115)
[2024-09-04] MEDS: Albuterol/Iprat 2.5/0.5MG 3 ML AMPUL.NEB INHALE ×2 (11:50→20:00)
--- NOTE | 2024-09-04 11:53 | P.PNHO-ONC_ITS ---
Medical Summary - Medical Summary Date of Service: 09/04/24 Chief complaint: leucocytosis Primary Care Provider: Cristina Stover MD Medical Summary: DIAGNOSIS: PANCYTOPENIA. Hiis blood pressure is stable and he is awake and alert. The cultures are no growth. He has been transfused with red cells sto HCT of 25%. The WBC is dropping. The bcr/abl is pending. The differential is unremarkable. Interval History Interval history: Deandre Luong is a 44 year old gentleman admitted on 08/29 presented with generalized weakness. For about 1 week complaining of abdominal bloating, bilateral lower extremity pain and edema, weakness, denies fever or chills. Denies chest pain, nausea, vomiting. In ED found to have significant lab abnormalities including severe leukocytosis of 44% predominantly neutrophils, acute kidney injury, anemia, acidosis. CT scan of the abdomen from 08/29 revealed: 1. No hydronephrosis. 2. Partially visualized patchy opacities in bilateral lung bases which may represent edema or infection. 3. Diffuse anasarca. Medical History: Seizure Polysubstance abuse CKD (chronic kidney disease) stage 3, GFR 30-59 ml/min Foot osteomyelitis, left Amputation of toe of right foot Diabetic ulcer of right foot Hyperglycemia due to type 2 diabetes mellitus Renal failure Sleep apnea Diabetes HTN (hypertension). Hyperlipidemia, CKD 3, polysubstance dependence, History of peripheral vascular disease Surgical History: History of surgical procedure (~04/24/23) Social History: Household Members: Family Housing: Apartment Do you presently have visiting nurse or other home services: No Alcohol intake: never Patient Tobacco Use Status: Current everyday Tobacco user Tobacco use type: Cigarette Review of Systems Review of Systems: Yes all other systems are reviewed and are negative. Review of Systems - Constitutional Reports anorexia - Cardiovascular Reports excessive sweating, Reports generalized swelling, Reports shortness of breath with activity - Respiratory Reports dyspnea on exertion - Gastrointestinal Reports feeling full early - Genitourinary Genitourinary: Reports urinary frequency - Musculoskeletal Reports other - Neurologic Reports system reviewed and no additional complaints, except as documented, Reports weakness PMFSH Medical History: Medical History (Last Reviewed 09/01/24 @ 09:46 by Catherine Jay, PT) Amputation of toe of right foot Callus of foot CKD (chronic kidney disease) stage 3, GFR 30-59 ml/min Constipation Diabetes Diabetic ulcer of right foot Foot osteomyelitis, left HTN (hypertension) Hyperglycemia due to type 2 diabetes mellitus Polysubstance abuse Renal failure Seizure Sleep apnea Surgical History: Surgical History (Last Reviewed 09/01/24 @ 09:46 by Catherine Jay PT) History of surgical procedure Onset Date: ~04/24/23 Social History: Social History (Last Reviewed 08/31/24 @ 13:03 by Eliecer Cali MD) Living Situation History: Household Members: Spouse Household Members: Family Household Members Other:: Pt and live with his mother Housing: Apartment Do you presently have visiting nurse or other home services: No Alcohol History Details: 1. How often do you have a drink containing alcohol?: c. 2-4 times a month 2. How many drinks containing alcohol do you have on a typical day when you are drinking?: d. 7 to 9 3. How often do you have six or more drinks on one occasion?: d. Weekly AUDIT-C Alcohol total score: 8 Last Drank Other:: 2 weeks ago pt stated Currently Displaying Signs/Symptoms of Alcohol Withdrawal: No Tobacco History: Patient Tobacco Use Status: Current everyday Tobacco Tobacco use type: Cigarette Years Smoked: 33 Smoked in Last 30 Days: Yes e-Cigarette/Vaping Use: Currently Using Frequency of e-Cigarette/Vaping use: 4/5 x per day Patient Interested in Nicotine Replacement: Yes Patient Given Instructions on How to Stop Smoking: Yes Date Education Initiated: 08/29/24 Substance Use History: Substance Use Type: Heroin Substance Use Type Other:: sniffs heroin 2-3 bundles/day per pt Substance Use Frequency: Daily Last Used Substance: Hours (ago) Currently Displaying Signs/Symptoms of Drug Intoxication Withdrawal: No Any prior treatment program specific to substance use: No Domestic Abuse History: Have you been hit, kicked, punched, or otherwise hurt by someone within the past year? If so, by whom?: No Do you feel safe in your current relationship?: Yes Is there a partner from a previous relationship who is making you feel unsafe now?: No Are you made to feel afraid or neglected: No Healthcare Practices: [employer] Healthcare Practices: Pentoc[employer] Advance Directives: Advance Directives: No Advance Directives Information Provided: No Homicidal Assessment: Do you have a plan to hurt others: No Plan Nutrition Assessment: Recently lost weight without trying: Yes How much weight loss: Unsure Eating poorly because of decreased appetite: Yes Nutrition screen score: 5 Nutrition Risks: No Nutritional Risk Poor oral hygiene: No Occupation Assessmet: service: No Home Medications and Allergies Current Medications: Current Medications Acetaminophen (Acetaminophen 325 Mg Tablet) 650 mg PO Q6H PRN PRN Reason: Pain, Mild (Pain Scale 1-3), fever or headache Last Admin: 08/31/24 08:32 Dose: 650 mg Albuterol/Ipratropium (Albuterol/Iprat 2.5/0.5mg 3 Ml Ampul.Neb) 3 ml INHALE Q4H PRN PRN Reason: Wheezing Last Admin: 09/04/24 11:50 Dose: 3 ml Benzocaine (Throat Lozenge, Medicated Lozenge) 1 lozenge MUCOUS MEM Q2H PRN PRN Reason: Sore Throat Last Admin: 09/01/24 13:46 Dose: 1 lozenge Buprenorphine/Naloxone (Buprenorphine/Naloxone 2/0.5mg Film) 0.25 film SUBLINGUAL BID@0800,1800 [facility] [place] Stop: 09/05/24 18:01 Buprenorphine/Naloxone (Buprenorphine/Naloxone 2/0.5mg Film) 0.5 film SUBLINGUAL ONCE ONE Stop: 09/06/24 08:01 Buprenorphine/Naloxone (Buprenorphine/Naloxone 2/0.5mg Film) 0.5 film SUBLINGUAL ONCE ONE Stop: 09/06/24 18:01 Buprenorphine/Naloxone (Buprenorphine/Naloxone 2/0.5mg Film) 1 film SUBLINGUAL BID@0800,1800 [facility] [place] Stop: 09/07/24 18:01 Calcitriol (Calcitriol 0.25 Mcg Capsule) 0.25 mcg PO DAILY [facility] [place] Last Admin: 09/04/24 09:32 Dose: 0.25 mcg Calcium Acetate (Calcium Acetate 667 Mg Capsule) 1,334 mg PO TIDWM [facility] [place] Last Admin: 09/04/24 09:32 Dose: 1,334 mg Calcium Carbonate (Calcium Carbonate 750 Mg Tab.Chew) 750 mg PO Q4H PRN PRN Reason: Heartburn Last Admin: 09/03/24 04:50 Dose: 750 mg Docusate Sodium (Docusate Sodium 100 Mg Capsule) 100 mg PO BID [facility] [place] Last Admin: 09/04/24 09:32 Dose: 100 mg Glucose (Glucose Gel 15 Gm Gel..Gram.) 15 gm PO Q15M PRN; Protocol PRN Reason: per Hypoglycemia Standing Ord. Guaifenesin/Codeine Phosphate (Guaifen/Codeine Sf 200/20/10ml 10 Ml Liquid) 5 ml PO Q6H PRN PRN Reason: Cough Last Admin: 09/03/24 22:02 Dose: 5 ml Heparin Sodium (Porcine) (Heparin Sodium,Porcine 5,000 Unit/Ml Vial) 5,000 unit SUBCUT Q12H [facility] [place] Last Admin: 09/03/24 21:53 Dose: 5,000 unit Dextrose (D10) 250 mls @ 750 mls/hr IV Q15M PRN; Protocol PRN Reason: per Hypoglycemia Standing Ord. Insulin Human Lispro (Insulin Lispro 100 Unit/Ml 3 Ml Vial) 0 unit SUBCUT QIDACHS [facility] [place]; Protocol Last Admin: 09/04/24 09:30 Dose: 2 unit Lactulose (Lactulose 20 Gm/30 Ml Solution) 20 gm PO BID [facility] [place] Last Admin: 09/04/24 10:21 Dose: 20 gm Melatonin (Melatonin 3 Mg Tablet) 6 mg PO BEDTIME PRN PRN Reason: Insomnia Last Admin: 08/31/24 20:09 Dose: 6 mg Methadone HCl (Methadone Hcl 20 Mg/2 Ml Oral.Conc) 50 mg PO DAILY@0900 [facility] [place] Last Admin: 09/04/24 09:32 Dose: 50 mg Multivitamins/Vitamin C (Multivitamin Tablet) 1 tab PO DAILY [facility] [place] Last Admin: 09/04/24 09:32 Dose: 1 tab Nicotine (Nicotine 14 Mg Patch.Td24) 14 mg TRANSDERMA DAILY [facility] [place] Last Admin: 09/04/24 09:31 Dose: 14 mg Ondansetron HCl (Ondansetron Hcl 4 Mg/2 Ml Vial) 4 mg IVPUSH Q8H PRN PRN Reason: Nausea and Vomiting Last Admin: 08/31/24 11:09 Dose: 4 mg Psyllium Hydrophilic Mucilloid (Psyllium Seed 3.7 Gm Packet) 3.7 gm PO DAILY [facility] [place] Last Admin: 09/04/24 10:21 Dose: 3.7 gm Sodium Chloride (0.9 % Sodium Chloride Flush 3 Ml Syringe) 3 ml IVFLUSH QSHIFT [facility] [place] Last Admin: 09/04/24 09:30 Dose: 3 ml Allergies Allergy/AdvReac Type Severity Reaction Status Date / Time No Known Allergies Allergy Verified 08/29/24 13:00 [No Known Allergies*] Exam Vital signs: Vital Signs Temp 99 F 09/04/24 11:33 Pulse 88 09/04/24 11:33 Resp 12 09/04/24 11:33 BP 126/58 L 09/04/24 11:33 Pulse Ox 97 09/04/24 11:33 O2 Del Method Room Air 09/04/24 11:33 O2 Flow Rate 2 08/30/24 02:00 Intake & Output 09/03/24 09/04/24 09/04/24 18:59 06:59 18:59 Intake Total 0 / 240 240 / 240 Output Total 300 / 300 Balance 0 / -60 -60 / -60 Urine Output (Average ml/kg/hr) 0.20 0.20 Intake: Intake, Oral Amount 0 / 240 240 / 240 Output: Output, Urine Amount 300 / 300 Other: Lunch % Eaten 0% Number of Incontinent Voids 1 Number of Bowel Movements 1 Urine Urinal Urine Color [place] Last Bowel Movement 09/03/24 09/03/24 09/03/24 Stool Incontinent Stool Amount Large Stool Color Brown Stool Consistency Soft Continuous Bladder Irrigation Fluid - Amount Instilled Urethral 280 Weight 122.2 kg BMI result Body Mass Index 39.8 - Constitutional Present: no acute distress, mild distress - Routine HEENT Exam Head: Present: atraumatic, normal inspection, normocephalic ENT: Present: mucous membranes moist - Routine Neck Exam Present: full ROM - Routine Respiratory Exam Present: decreased breath sounds - Routine Cardiovascular Exam Cardiovascular: Present: RRR - Routine Abdominal Exam Present: diminished bowel sounds - Routine Extremities Exam Present: full ROM Data - Labs CBC & Chem 7: 09/04/24 07:11 09/04/24 07:11 Labs: Laboratory Last Values WBC 28.3 X10*3/uL (4.8-10.8) H 09/04/24 07:11 RBC 2.84 X10*6/uL (4.60-5.80) L 09/04/24 07:11 Hgb 8.0 g/dl (14.0-18.0) L 09/04/24 07:11 Hct 25.1 % (42.0-52.0) L 09/04/24 07:11 MCV 88.4 fL (80.0-98.0) 09/04/24 07:11 MCH 28.2 pg (27.0-33.0) 09/04/24 07:11 MCHC 31.9 g/dl (31.0-36.0) 09/04/24 07:11 RDW 16.6 % (11.0-16.0) H 09/04/24 07:11 Plt Count 284 X10*3/uL (160-400) 09/04/24 07:11 MPV 11.3 fL (9.4-12.4) 09/04/24 07:11 Immature Gran % (Auto) Cancelled 08/29/24 13:12 Neut % (Auto) Cancelled 08/29/24 13:12 Lymph % (Auto) Cancelled 08/29/24 13:12 [place] % (Auto) Cancelled 08/29/24 13:12 Eos % (Auto) Cancelled 08/29/24 13:12 Baso % (Auto) Cancelled 08/29/24 13:12 Lymph # (Auto) Cancelled 08/29/24 13:12 [place] # (Auto) Cancelled 08/29/24 13:12 Eos # (Auto) Cancelled 08/29/24 13:12 Baso # (Auto) Cancelled 08/29/24 13:12 Abs Immat Gran (auto) Cancelled 08/29/24 13:12 Absolute Neuts (auto) Cancelled 08/29/24 13:12 Absolute Nucleated RBC 0.000 X10*3/uL (0.0-0.012) 09/04/24 07:11 Nucleated RBC % (auto) 0.0 /100WBC (0.0-0.2) 09/04/24 07:11 Neutrophils % (Manual) 90 % (45-73) H 08/29/24 13:12 Band Neutrophils % 8 % (3-5) H 08/29/24 13:12 Lymphocytes % (Manual) 1 % (20-40) L 08/29/24 13:12 Monocytes % (Manual) 1 % (2-11) L 08/29/24 13:12 Abs Neuts (Manual) 43.2 X10*3/uL (2.0-8.3) H 08/29/24 13:12 Lymphocytes # (Manual) 0.4 X10*3/uL (1.2-4.9) L 08/29/24 13:12 Monocytes # (Manual) 0.4 X10*3/uL (0.1-1.2) 08/29/24 13:12 [place]le Bodies PRESENT 08/29/24 13:12 Platelet Estimate NORMAL (NORMAL) 08/29/24 13:12 Plt Morphology Comment NORMAL 08/29/24 13:12 RBC Morphology NOTED 08/29/24 13:12 Polychromasia 1+ (0-2) /OIF 08/29/24 13:12 [place] Cells 1+ (0-2) /OIF 08/29/24 13:12 Smear Tech's Comments MANUAL DIFF 08/29/24 13:12 Smear Path Review SEE NOTE 08/29/24 13:12 Hold Blue Top SEE NOTE 08/29/24 13:12 Sodium 133 mmol/L (135-145) L 09/04/24 07:11 Potassium 3.8 mmol/L (3.3-5.1) 09/04/24 07:11 Chloride 102 mmol/L (96-108) 09/04/24 07:11 Carbon Dioxide 22 mmol/L (22-29) 09/04/24 07:11 Anion Gap 13 (12-20) 09/04/24 07:11 BUN 48 mg/dL (9-16) H 09/04/24 07:11 Creatinine 3.16 mg/dL (0.5-1.4) H 09/04/24 07:11 Estim Creat Clear Calc 37.7 09/04/24 07:11 Estimated GFR 21 09/04/24 07:11 POC Glucose 182 mg/dL (60-115) H 09/04/24 11:36 Random Glucose 179 mg/dL (60-115) H 09/04/24 07:11 Fasting Glucose 258 mg/dL (60-99) H 08/31/24 06:15 Haptoglobin 300 mg/dL (14-258) H 08/31/24 06:15 Lactic Acid 0.8 mmol/L (0.5-2.0) 08/29/24 14:03 Calcium 6.9 mg/dL (8.4-10.2) L D 09/04/24 07:11 Phosphorus 6.8 mg/dL (2.7-4.5) H 09/03/24 06:21 Magnesium 1.8 mg/dL (1.6-2.6) 08/30/24 05:37 Total Bilirubin 0.6 mg/dL (0.0-1.0) 08/30/24 05:37 Direct Bilirubin 0.5 mg/dL (0.0-0.5) 08/30/24 05:37 AST 64 U/L (5-37) H 08/30/24 05:37 ALT 17 U/L (0-40) 08/30/24 05:37 Alkaline Phosphatase 484 U/L (39-117) H 08/30/24 05:37 Lactate Dehydrogenase 341 U/L (118-273) H 08/31/24 06:15 B-Natriuretic Peptide 906 pg/mL (<100) H 08/29/24 13:12 Total Protein 6.1 g/dL (6.5-8.0) L 08/30/24 05:37 Total Protein (PEP) 6.0 g/dL (6.1-8.1) L 08/29/24 16:57 Albumin 1.5 g/dL (3.5-5.0) L 08/31/24 06:15 Albumin (PEP) SEE NOTE g/dL (3.8-4.8) 08/29/24 16:57 Gqtpb-2-Qiianbupq 0.8 g/dL (0.2-0.3) H 08/29/24 16:57 [place]-7-Rpxauygwp 0.9 g/dL (0.5-0.9) 08/29/24 16:57 Sgpg-4-Qgtkvqqg 0.4 g/dL (0.4-0.6) 08/29/24 16:57 Lijv-7-Dhtbatbm 0.7 g/dL (0.2-0.5) H 08/29/24 16:57 Gamma Globulins 1.9 g/dL (0.8-1.7) H 08/29/24 16:57 Abnorm Protein Band 1 TNP 08/29/24 16:57 Abnorm Protein Band 2 TNP 08/29/24 16:57 Abnorm Protein Band 3 TNP 08/29/24 16:57 PEP Interpretation SEE NOTE 08/29/24 16:57 Beta-Hydroxybutyrate 0.27 mmol/L (0.02-0.27) 08/29/24 13:12 PTH Intact 746.2 pg/mL (8.7-77.1) H 08/31/24 06:15 Urine Color Yellow 08/29/24 14:44 Urine Appearance Cloudy 08/29/24 14:44 Urine pH 5.5 (5.0-9.0) 08/29/24 14:44 Ur Specific [place] 1.015 (1.005-1.025) 08/29/24 14:44 Urine Protein 300 (3+) mg/dL (Neg-Trace) H 08/29/24 14:44 Urine Glucose (UA) Negative mg/dL (Negative) 08/29/24 14:44 Urine Ketones Negative mg/dL (Negative) 08/29/24 14:44 Urine Blood Moderate (2+) (Negative) H 08/29/24 14:44 Urine Nitrite Negative (Negative) 08/29/24 14:44 Ur Leukocyte Esterase Trace (Negative) H 08/29/24 14:44 Urine RBC 0-2 /HPF (0-2) 08/29/24 14:44 Urine WBC 6-10 /HPF (0-5) H 08/29/24 14:44 Ur Squamous Epith Cells 0-2 /HPF (0-2) 08/29/24 14:44 Urine Bacteria None Seen (None Seen) 08/29/24 14:44 Hyaline Casts 0-2 /LPF (0-2) 08/29/24 14:44 U [place] Prot/Creat Ratio 7.441 (0.025-0.148) H 08/29/24 17:31 Ur Creatinine mg/dL 59 mg/dL (20-320) 08/29/24 17:31 U Total Protein mg/dL 439 mg/dL (5-25) H 08/29/24 17:31 Protein/Creatinin Ratio 7441 mg/g creat (25-148) H 08/29/24 17:31 Urine Albumin (%) 37 % 08/29/24 17:31 U Wiqek-5-Sbmjecob (%) 7 % 08/29/24 17:31 U Iypnt-9-Ddnjtkjw (%) 6 % 08/29/24 17:31 U Beta Globulin (%) 7 % 08/29/24 17:31 U Gamma Globulin (%) 43 % 08/29/24 17:31 U Abnormal Prot Band 1 TNP 10/27/24 17:31 U Abnormal Prot Band 2 TNP 08/29/24 17:31 U Abnormal Prot Band 3 TNP 08/29/24 17:31 Urine PEP Interpret SEE NOTE 08/29/24 17:31 Stool Occult Blood NEGATIVE (NEGATIVE) 08/29/24 14:03 Urine Opiates Screen POSITIVE (Not Detect) H 08/30/24 09:26 Ur Buprenorphine Scrn Not Detected ng/mL (Not Detect) 08/30/24 09:26 Ur Oxycodone Screen Positive ng/mL (Not Detect) H 08/30/24 09:26 Urine Methadone Screen Not Detected ng/mL (Not Detect) 08/30/24 09:26 Urine Fentanyl Screen POSITIVE (Not Detect) H 08/30/24 09:26 Ur Barbiturates Screen Not Detected (Not Detect) 08/30/24 09:26 Ur Phencyclidine Scrn Not Detected (Not Detect) 08/30/24 09:26 Ur Amphetamines Screen Not Detected (Not Detect) 08/30/24 09:26 U Benzodiazepines Scrn Not Detected (Not Detect) 08/30/24 09:26 Urine Cocaine Screen POSITIVE (Not Detect) H 08/30/24 09:26 U Marijuana (THC) Screen Not Detected (Not Detect) 08/30/24 09:26 IgG Total 2009 mg/dL (600-1640) H 08/29/24 16:57 IgA Total 651 mg/dL (47-310) H 08/29/24 16:57 IgM 55 mg/dL (50-300) 08/29/24 16:57 ABENA Interpretation SEE NOTE 08/29/24 16:57 Urine Immunofixation SEE NOTE 08/29/24 17:31 Proteinase 3 (PR3) Ab <1.0 AI 08/29/24 16:57 Myeloperoxidase Ab <1.0 AI 08/29/24 16:57 Complement C3 104 mg/dL (82-185) 08/29/24 16:57 Complement C4 22 mg/dL (15-53) 08/29/24 16:57 Hep Bs Antigen Negative (Negative) 08/30/24 11:08 Hep Bs Antibody NONREACTIVE (Nonreactive) 08/30/24 11:08 Hep B Core Total Ab Nonreactive (Nonreactive) 08/30/24 11:08 Blood Type O Positive 08/29/24 14:03 Antibody Screen NEGATIVE 08/29/24 14:03 Crossmatch See Detail 08/29/24 14:03 - Imaging Radiologist's impression: ITS Impressions KUB X-Ray 08/29/24 13:25 IMPRESSION: 1. Prominent fecal loading of the ascending colon greatest along its proximal segment measuring up to 10.8 cm. 2. There is air-filled dilatation of the remaining colon measuring up to 8.4 cm. Electronically signed by: Angeles Galeas MD 08/29/2024 01:41 PM EDT RP Chest X-Ray 08/29/24 13:54 IMPRESSION: 1. Bronchial thickening suggesting infectious/inflammatory etiology. 2. Elevation right hemidiaphragm. 3. Left basilar atelectasis. Electronically signed by: Angeles Galeas MD 08/29/2024 03:07 PM EDT RP Abdomen/Pelvis CT 08/29/24 15:18 IMPRESSION: 1. No hydronephrosis. 2. Partially visualized patchy opacities in bilateral lung bases which may represent edema or infection. 3. Diffuse anasarca. Fleischner guidelines were followed. Electronically signed by: Mike Galan MD 08/29/2024 03:39 PM EDT RP Assessment and Plan Patient Active problem list reviewed?: Yes (1) Leukocytosis Status: Acute Assessment and plan: 44-year-old gentleman with polysubstance abuse, cocaine, presents with generalized weakness. Noted to have leukocytosis with WBC of 52, and significant anemia with hemoglobin of 6.7. DIFFERENTIAL DIAGNOSIS: 1. REACTIVE/LEUKEMOID REACTION: Most likely. 2. MYELOPROLIFERATIVE NEOPLASM i.e CML. PLAN: Will check : LDH: 341. BCR-ABL gene transcript: checked. Anemia workup. He is recieving a couple of Blood transfusions. Thank you for the consult, I will follow along with you, CC: Cristina Stover. - Time Spent With Patient Time Spent with Patient (in minutes): 15 Procedures - Paracentesis Time out performed: Yes
[2024-09-04] MEDS: Heparin Sodium,Porcine 5,000 UNIT/ML VIAL 5000 UNIT SUBCUT ×2 (12:06→22:09)
--- NOTE | 2024-09-04 13:51 | P.PNIM_ITS ---
Subjective Subjective Date of Service: 09/04/24 Interval History: Seen and evaluated this morning Feels better as swelling going down Creatinine down to 3.1 after HD Holdinh HD over the weekend No other overnight events Review of Systems Review of Systems: Yes all other systems are reviewed and are negative Physical Exam 2 Vital Signs: Vital Signs: Last Vital Signs Temp 99 F 09/04/24 11:33 Pulse 87 09/04/24 11:52 Resp 18 09/04/24 11:52 BP 126/58 L 09/04/24 11:33 Pulse Ox 97 09/04/24 11:33 O2 Del Method Room Air 09/04/24 11:33 O2 Flow Rate 2 08/30/24 02:00 BMI result Body Mass Index 39.8 Const: Other: Constitutional : Awake, interactive, not in distress Neck : Normal inspection, Supple Cardiovascular : RRR, no JVP, no lower extremity edema Respiratory : good bilateral air entry, no crackles, wheezes or rhonchi Gastrointestinal: soft, lax, Normal bowel sounds, Non tender Skin : Warm, Dry, multiple skin picking gabriel, BKA right, LLE callus with dry skin, Dialysis catheter in place , Urinary: scrotal swelling improving Neurological : Alert & oriented x3, No focal deficit Objective Data Active Medications Acetaminophen (Acetaminophen 325 Mg Tablet) 650 mg PO Q6H PRN PRN Reason: Pain, Mild (Pain Scale 1-3), fever or headache Last Admin: 08/31/24 08:32 Dose: 650 mg Documented By: DENNY Albuterol/Ipratropium (Albuterol/Iprat 2.5/0.5mg 3 Ml Ampul.Neb) 3 ml INHALE Q4H PRN PRN Reason: Wheezing Last Admin: 09/04/24 11:50 Dose: 3 ml Documented By: KELLEY Benzocaine (Throat Lozenge, Medicated Lozenge) 1 lozenge MUCOUS MEM Q2H PRN PRN Reason: Sore Throat Last Admin: 09/01/24 13:46 Dose: 1 lozenge Documented By: GAYATRI Buprenorphine/Naloxone (Buprenorphine/Naloxone 2/0.5mg Film) 0.25 film SUBLINGUAL BID@0800,1800 [facility] Stop: 09/05/24 18:01 Buprenorphine/Naloxone (Buprenorphine/Naloxone 2/0.5mg Film) 0.5 film SUBLINGUAL ONCE ONE Stop: 09/06/24 08:01 Buprenorphine/Naloxone (Buprenorphine/Naloxone 2/0.5mg Film) 0.5 film SUBLINGUAL ONCE ONE Stop: 09/06/24 18:01 Buprenorphine/Naloxone (Buprenorphine/Naloxone 2/0.5mg Film) 1 film SUBLINGUAL BID@0800,1800 ON LICENSE OF [facility] Stop: 09/07/24 18:01 Calcitriol (Calcitriol 0.25 Mcg Capsule) 0.25 mcg PO DAILY ON LICENSE OF [facility] Last Admin: 09/04/24 09:32 Dose: 0.25 mcg Documented By: ROSCOE Calcium Acetate (Calcium Acetate 667 Mg Capsule) 1,334 mg PO TIDWM ON LICENSE OF [facility] Last Admin: 09/04/24 12:06 Dose: 1,334 mg Documented By: ROSCOE Calcium Carbonate (Calcium Carbonate 750 Mg Tab.Chew) 750 mg PO Q4H PRN PRN Reason: Heartburn Last Admin: 09/03/24 04:50 Dose: 750 mg Documented By: FLORY Docusate Sodium (Docusate Sodium 100 Mg Capsule) 100 mg PO BID ON LICENSE OF [facility] Last Admin: 09/04/24 09:32 Dose: 100 mg Documented By: ROSCOE Glucose (Glucose Gel 15 Gm Gel..Gram.) 15 gm PO Q15M PRN; Protocol PRN Reason: per Hypoglycemia Standing Ord. Guaifenesin/Codeine Phosphate (Guaifen/Codeine Sf 200/20/10ml 10 Ml Liquid) 5 ml PO Q6H PRN PRN Reason: Cough Last Admin: 09/03/24 22:02 Dose: 5 ml Documented By: ANTOIC Heparin Sodium (Porcine) (Heparin Sodium,Porcine 5,000 Unit/Ml Vial) 5,000 unit SUBCUT Q12H ON LICENSE OF [facility] Last Admin: 09/04/24 12:06 Dose: 5,000 unit Documented By: ROSCOE Dextrose (D10) 250 mls @ 750 mls/hr IV Q15M PRN; Protocol PRN Reason: per Hypoglycemia Standing Ord. Insulin Human Lispro (Insulin Lispro 100 Unit/Ml 3 Ml Vial) 0 unit SUBCUT QIDACHS ON LICENSE OF [facility]; Protocol Last Admin: 09/04/24 12:06 Dose: 2 unit Documented By: ANICETOING Lactulose (Lactulose 20 Gm/30 Ml Solution) 20 gm PO BID ON LICENSE OF [facility] Last Admin: 09/04/24 10:21 Dose: 20 gm Documented By: ROSCOE Melatonin (Melatonin 3 Mg Tablet) 6 mg PO BEDTIME PRN PRN Reason: Insomnia Last Admin: 08/31/24 20:09 Dose: 6 mg Documented By: PETE Methadone HCl (Methadone Hcl 20 Mg/2 Ml Oral.Conc) 50 mg PO DAILY@0900 ON LICENSE OF [facility] Last Admin: 09/04/24 09:32 Dose: 50 mg Documented By: ROSCOE Co-signed By: AUSTIN Multivitamins/Vitamin C (Multivitamin Tablet) 1 tab PO DAILY ON LICENSE OF [facility] Last Admin: 09/04/24 09:32 Dose: 1 tab Documented By: ROSCOE Nicotine (Nicotine 14 Mg Patch.Td24) 14 mg TRANSDERMA DAILY ON LICENSE OF [facility] Last Admin: 09/04/24 09:31 Dose: 14 mg Documented By: ROSCOE Ondansetron HCl (Ondansetron Hcl 4 Mg/2 Ml Vial) 4 mg IVPUSH Q8H PRN PRN Reason: Nausea and Vomiting Last Admin: 08/31/24 11:09 Dose: 4 mg Documented By: DENNY Psyllium Hydrophilic Mucilloid (Psyllium Seed 3.7 Gm Packet) 3.7 gm PO DAILY ON LICENSE OF [facility] Last Admin: 09/04/24 10:21 Dose: 3.7 gm Documented By: ROSCOE Sodium Chloride (0.9 % Sodium Chloride Flush 3 Ml Syringe) 3 ml IVFLUSH QSHIFT ON LICENSE OF [facility] Last Admin: 09/04/24 09:30 Dose: 3 ml Documented By: ROSCOE Labs 09/04/24 07:11 09/04/24 07:11 Labs: Laboratory Results - last 24 hr 08/29/24 09/03/24 09/03/24 14:03 15:15 21:36 MCV MCH MCHC RDW Plt Count MPV Absolute Nucleated RBC Nucleated RBC % (auto) Anion Gap Estim Creat Clear Calc Estimated GFR POC Glucose 158 H 237 H Random Glucose Calcium Crossmatch See Detail 09/04/24 09/04/24 09/04/24 07:11 07:55 11:36 MCV 88.4 MCH 28.2 MCHC 31.9 RDW 16.6 H Plt Count 284 MPV 11.3 Absolute Nucleated RBC 0.000 Nucleated RBC % (auto) 0.0 Anion Gap 13 Estim Creat Clear Calc 37.7 Estimated GFR 21 POC Glucose 167 H 182 H Random Glucose 179 H Calcium 6.9 L D Crossmatch Microbiology Microbiology Results: Microbiology 08/29/24 14:03 Blood Culture - Final Blood - Venous No growth after 5 days. 08/29/24 14:03 Blood Culture - Final Blood - Venous No growth after 5 days. Assessment and Plan (1) Callus of foot: Status: Acute (2) Acute renal failure: Status: Acute (3) Anemia: Status: Acute Plan 44M PMH hypertension, hyperlipidemia, diabetes, CKD 3, polysubstance dependence, history of peripheral vascular disease presented with weakness found to have angelo, anemia, leukocysotis, acidosis acute metabolic encephalopathy due to uremic encephalopathy due to ANGELO on CKD 3 complicated by acute metabolic acidosis, mentation improved back to baseline catheter placement 08/30/24 and started dialysis Elevated IgG, IGA, normal compliment level and PR3, MP follow-up BMP Cr to 3.1 after 3 HD sessions, on HD holiday over the weekend Nephrology input appreciated, will likely need kidney biopsy Acute on chronic anemia with Leukocytosis WBC stable at 29 likely leukomoid tosha Hb stable at 8 after 3 units transfusion no clear source of infection, no sepsis Likely leukemoid reaction per peripheral smear Elevated LDH, Haptoglobin Echo r\o vegetation but EF 43% hematology input appreciated, BCR-ABL gene Give Epogen with HD given Acute hypocalcemia corrected at 7.9 replacement given Elevated PTH, start Calcitriol Hx drug abuse U.Tox +ve for Cocaine, Opiates, Fentanyl and Oxy Addiciton team following Methadone started Diabetes II Insulin sliding scale Hypertension Hold BP meds for now Scrotal swelling secondary to fluid overload support, dialysis, monitor DVT prophylaxis start Heparin SC Full code reason for continued hospitalization:severe angelo requiring Dialysis, blood trnasfusion Quality Stroke Does the patient have a stroke diagnosis?: No VTE Prior VTE?: No VTE Risk Level:: Medical - moderate - high VTE Device Contraindication: N/A - Device Ordered VTE Drug Contraindication: Treatment Not Indicated
[2024-09-04 16:08] LABS: Glucose, Whole Blood 125 mg/dL (60-115)
[2024-09-04] MEDS: Acetaminophen 325 MG TABLET 650 MG PO (19:37)
[2024-09-04] MEDS: guaiFEN/Codeine SF 200/20/10ML 10 ML LIQUID 5 ML PO (19:37)
[2024-09-04 20:00] LABS: Glucose, Whole Blood 236 mg/dL (60-115)
[2024-09-04] MEDS: Calcium Carbonate 750 MG TAB.CHEW PO (22:11)
[2024-09-05] VITALS (9 sets, daily range): BP systolic 116–130; BP diastolic 56–62; PULSE 62–96; RESP 16–22; TEMP 36.4–37.2; O2SAT 93–98
[2024-09-05 07:28] LABS: Hematocrit 22.9 % (42.0-52.0); Hemoglobin 7.3 g/dl (14.0-18.0); Mean Corpuscular HGB Conc 31.9 g/dl (31.0-36.0); Mean Corpuscular Hemoglobin 28.4 pg (27.0-33.0); Mean Corpuscular Volume 89.1 fL (80.0-98.0); Mean Platelet Volume 11.8 fL (9.4-12.4); Platelet Count 281 X10*3/uL (160-400); Red Blood Count 2.57 X10*6/uL (4.60-5.80)
[2024-09-05 07:32] LABS: Glucose, Whole Blood 239 mg/dL (60-115)
[2024-09-05 08:16] LABS: Anion Gap 17 (12-20); Blood Urea Nitrogen 59 mg/dL (9-16); Calcium 7.1 mg/dL (8.4-10.2); Carbon Dioxide 20 mmol/L (22-29); Chloride 101 mmol/L (96-108); Creatinine Clr Calc Pharmacy 29.1; Estimated Glomerular Filt Rate 16; Glucose Random 216 mg/dL (60-115); Potassium 3.8 mmol/L (3.3-5.1); Sodium 134 mmol/L (135-145)
[2024-09-05] MEDS: Docusate Sodium 100 MG CAPSULE PO ×2 (09:02→21:01)
[2024-09-05] MEDS: Calcium Acetate 667 MG CAPSULE 1334 MG PO ×3 (09:02→17:20)
[2024-09-05] MEDS: Multivitamin TABLET 1 TAB PO (09:02)
[2024-09-05] MEDS: Lactulose 20 GM/30 ML SOLUTION PO (09:02)
[2024-09-05] MEDS: calcitrioL 0.25 MCG CAPSULE PO (09:02)
[2024-09-05] MEDS: Insulin Lispro 100 UNIT/ML 3 ML VIAL SUBCUT ×3 (09:02→21:02)
[2024-09-05] MEDS: Nicotine 14 MG PATCH.TD24 TRANSDERMA (09:03)
[2024-09-05] MEDS: Buprenorphine/Naloxone 2/0.5mg FILM 0.25 FILM SUBLINGUAL ×2 (09:03→17:20)
[2024-09-05] MEDS: 0.9 % Sodium Chloride Flush 3 ML SYRINGE IVFLUSH ×2 (09:04→17:19)
[2024-09-05] MEDS: Psyllium seed 3.7 GM PACKET PO (09:04)
[2024-09-05] MEDS: Albuterol/Iprat 2.5/0.5MG 3 ML AMPUL.NEB INHALE ×2 (09:27→18:01)
[2024-09-05] MEDS: Calcium Carbonate 750 MG TAB.CHEW PO ×2 (10:14→19:43)
[2024-09-05] MEDS: methADONE HCl 20 MG/2 ML ORAL.CONC 50 MG PO (10:15)
[2024-09-05 10:53] LABS: Glucose, Whole Blood 202 mg/dL (60-115)
[2024-09-05] MEDS: Heparin Sodium,Porcine 5,000 UNIT/ML VIAL 5000 UNIT SUBCUT (12:31)
--- NOTE | 2024-09-05 12:57 | P.PNHO-ONC_ITS ---
Medical Summary - Medical Summary Date of Service: 09/05/24 Primary Care Provider: Cristina Stover MD Medical Summary: DIAGNOSIS: PANCYTOPENIA. Sergei blood pressure is stable and he is awake and alert. The cultures are no growth. He has been transfused with red cells sto HCT of 25%. The WBC is dropping. The bcr/abl is pending. The differential is unremarkable. His WBC today is 23K but the hematocrit has dropped to 22. Interval History Interval history: Deandre Luong is a 44 year old gentleman admitted on 08/29 presented with generalized weakness. For about 1 week complaining of abdominal bloating, bilateral lower extremity pain and edema, weakness, denies fever or chills. Denies chest pain, nausea, vomiting. In ED found to have significant lab abnormalities including severe leukocytosis of 44% predominantly neutrophils, acute kidney injury, anemia, acidosis. CT scan of the abdomen from 08/29 revealed: 1. No hydronephrosis. 2. Partially visualized patchy opacities in bilateral lung bases which may represent edema or infection. 3. Diffuse anasarca. Medical History: Seizure Polysubstance abuse CKD (chronic kidney disease) stage 3, GFR 30-59 ml/min Foot osteomyelitis, left Amputation of toe of right foot Diabetic ulcer of right foot Hyperglycemia due to type 2 diabetes mellitus Renal failure Sleep apnea Diabetes HTN (hypertension). Hyperlipidemia, CKD 3, polysubstance dependence, History of peripheral vascular disease Surgical History: History of surgical procedure (~04/24/23) Social History: Household Members: Family Housing: Apartment Do you presently have visiting nurse or other home services: No Alcohol intake: never Patient Tobacco Use Status: Current everyday Tobacco user Tobacco use type: Cigarette Review of Systems Review of Systems: Yes all other systems are reviewed and are negative. Review of Systems - Constitutional Reports anorexia - ENT Reports other - Cardiovascular Reports excessive sweating - Respiratory Reports dyspnea on exertion - Gastrointestinal Reports nausea - Genitourinary Genitourinary: Reports other - Neurologic Reports system reviewed and no additional complaints, except as documented, Reports weakness PMFSH Medical History: Medical History (Last Reviewed 09/01/24 @ 09:46 by Catherine Jay PT) Amputation of toe of right foot Callus of foot CKD (chronic kidney disease) stage 3, GFR 30-59 ml/min Constipation Diabetes Diabetic ulcer of right foot Foot osteomyelitis, left HTN (hypertension) Hyperglycemia due to type 2 diabetes mellitus Polysubstance abuse Renal failure Seizure Sleep apnea Surgical History: Surgical History (Last Reviewed 09/01/24 @ 09:46 by Catherine Jay PT) History of surgical procedure Onset Date: ~04/24/23 Social History: Social History (Last Reviewed 08/31/24 @ 13:03 by Eliecer Cali MD) Living Situation History: Household Members: Spouse Household Members: Family Household Members Other:: Pt and live with his mother Housing: Apartment Do you presently have visiting nurse or other home services: No Alcohol History Details: 1. How often do you have a drink containing alcohol?: c. 2-4 times a month 2. How many drinks containing alcohol do you have on a typical day when you are drinking?: d. 7 to 9 3. How often do you have six or more drinks on one occasion?: d. Weekly AUDIT-C Alcohol total score: 8 Last Drank Other:: 2 weeks ago pt stated Currently Displaying Signs/Symptoms of Alcohol Withdrawal: No Tobacco History: Patient Tobacco Use Status: Current everyday Tobacco Tobacco use type: Cigarette Years Smoked: 33 Smoked in Last 30 Days: Yes e-Cigarette/Vaping Use: Currently Using Frequency of e-Cigarette/Vaping use: 4/5 x per day Patient Interested in Nicotine Replacement: Yes Patient Given Instructions on How to Stop Smoking: Yes Date Education Initiated: 08/29/24 Substance Use History: Substance Use Type: Heroin Substance Use Type Other:: sniffs heroin 2-3 bundles/day per pt Substance Use Frequency: Daily Last Used Substance: Hours (ago) Currently Displaying Signs/Symptoms of Drug Intoxication Withdrawal: No Any prior treatment program specific to substance use: No Domestic Abuse History: Have you been hit, kicked, punched, or otherwise hurt by someone within the past year? If so, by whom?: No Do you feel safe in your current relationship?: Yes Is there a partner from a previous relationship who is making you feel unsafe now?: No Are you made to feel afraid or neglected: No Healthcare Practices: Rastafari Healthcare Practices: Pentocostal Advance Directives: Advance Directives: No Advance Directives Information Provided: No Homicidal Assessment: Do you have a plan to hurt others: No Plan Nutrition Assessment: Recently lost weight without trying: Yes How much weight loss: Unsure Eating poorly because of decreased appetite: Yes Nutrition screen score: 5 Nutrition Risks: No Nutritional Risk Poor oral hygiene: No Occupation Assessmet: service: No Home Medications and Allergies Current Medications: Current Medications Acetaminophen (Acetaminophen 325 Mg Tablet) 650 mg PO Q6H PRN PRN Reason: Pain, Mild (Pain Scale 1-3), fever or headache Last Admin: 09/04/24 19:37 Dose: 650 mg Albuterol/Ipratropium (Albuterol/Iprat 2.5/0.5mg 3 Ml Ampul.Neb) 3 ml INHALE Q4H PRN PRN Reason: Wheezing Last Admin: 09/05/24 09:27 Dose: 3 ml Benzocaine (Throat Lozenge, Medicated Lozenge) 1 lozenge MUCOUS MEM Q2H PRN PRN Reason: Sore Throat Last Admin: 09/01/24 13:46 Dose: 1 lozenge Buprenorphine/Naloxone (Buprenorphine/Naloxone 2/0.5mg Film) 0.25 film SUBLINGUAL BID@0800,1800 [facility] Stop: 09/05/24 18:01 Last Admin: 09/05/24 09:03 Dose: 0.25 film Buprenorphine/Naloxone (Buprenorphine/Naloxone 2/0.5mg Film) 0.5 film SUBLINGUAL ONCE ONE Stop: 09/06/24 08:01 Buprenorphine/Naloxone (Buprenorphine/Naloxone 2/0.5mg Film) 0.5 film SUBLINGUAL ONCE ONE Stop: 09/06/24 18:01 Buprenorphine/Naloxone (Buprenorphine/Naloxone 2/0.5mg Film) 1 film SUBLINGUAL BID@0800,1800 [facility] Stop: 09/07/24 18:01 Calcitriol (Calcitriol 0.25 Mcg Capsule) 0.25 mcg PO DAILY [facility] Last Admin: 09/05/24 09:02 Dose: 0.25 mcg Calcium Acetate (Calcium Acetate 667 Mg Capsule) 1,334 mg PO TIDWM [facility] Last Admin: 09/05/24 12:31 Dose: 1,334 mg Calcium Carbonate (Calcium Carbonate 750 Mg Tab.Chew) 750 mg PO Q4H PRN PRN Reason: Heartburn Last Admin: 09/05/24 10:14 Dose: 750 mg Docusate Sodium (Docusate Sodium 100 Mg Capsule) 100 mg PO BID [facility] Last Admin: 09/05/24 09:02 Dose: 100 mg Glucose (Glucose Gel 15 Gm Gel..Gram.) 15 gm PO Q15M PRN; Protocol PRN Reason: per Hypoglycemia Standing Ord. Guaifenesin/Codeine Phosphate (Guaifen/Codeine Sf 200/20/10ml 10 Ml Liquid) 5 ml PO Q6H PRN PRN Reason: Cough Last Admin: 09/04/24 19:37 Dose: 5 ml Heparin Sodium (Porcine) (Heparin Sodium,Porcine 5,000 Unit/Ml Vial) 5,000 unit SUBCUT Q12H [facility] Last Admin: 09/05/24 12:31 Dose: 5,000 unit Dextrose (D10) 250 mls @ 750 mls/hr IV Q15M PRN; Protocol PRN Reason: per Hypoglycemia Standing Ord. Insulin Human Lispro (Insulin Lispro 100 Unit/Ml 3 Ml Vial) 0 unit SUBCUT QIDACHS [facility]; Protocol Last Admin: 09/05/24 12:32 Dose: 4 unit Lactulose (Lactulose 20 Gm/30 Ml Solution) 20 gm PO BID [facility] Last Admin: 09/05/24 09:02 Dose: 20 gm Melatonin (Melatonin 3 Mg Tablet) 6 mg PO BEDTIME PRN PRN Reason: Insomnia Last Admin: 08/31/24 20:09 Dose: 6 mg Methadone HCl (Methadone Hcl 20 Mg/2 Ml Oral.Conc) 50 mg PO DAILY@0900 [facility] Last Admin: 09/05/24 10:15 Dose: 50 mg Multivitamins/Vitamin C (Multivitamin Tablet) 1 tab PO DAILY [facility] Last Admin: 09/05/24 09:02 Dose: 1 tab Nicotine (Nicotine 14 Mg Patch.Td24) 14 mg TRANSDERMA DAILY [facility] Last Admin: 09/05/24 09:03 Dose: 14 mg Ondansetron HCl (Ondansetron Hcl 4 Mg/2 Ml Vial) 4 mg IVPUSH Q8H PRN PRN Reason: Nausea and Vomiting Last Admin: 08/31/24 11:09 Dose: 4 mg Psyllium Hydrophilic Mucilloid (Psyllium Seed 3.7 Gm Packet) 3.7 gm PO DAILY [facility] Last Admin: 09/05/24 09:04 Dose: 3.7 gm Sodium Chloride (0.9 % Sodium Chloride Flush 3 Ml Syringe) 3 ml IVFLUSH QSHIFT [facility] Last Admin: 09/05/24 09:04 Dose: 3 ml Allergies Allergy/AdvReac Type Severity Reaction Status Date / Time No Known Allergies Allergy Verified 08/29/24 13:00 [No Known Allergies*] Exam Vital signs: Vital Signs Temp 98.5 F 09/05/24 10:46 Pulse 89 09/05/24 10:46 Resp 18 09/05/24 10:46 BP 116/56 L 09/05/24 10:46 Pulse Ox 96 09/05/24 10:46 O2 Del Method Room Air 09/05/24 10:46 O2 Flow Rate 2 08/30/24 02:00 Intake & Output 09/04/24 09/05/24 09/05/24 19:59 06:59 18:59 Other: Meal Refused Breakfast % Eaten Afternoon Snack % Eaten Eating (Feeding) Ability Number of Incontinent Voids Number of Bowel Movements Number of Unmeasured Emesis 1 Episodes Urine Last Bowel Movement 09/05/24 Stool Stool Amount Stool Color Stool Consistency Emesis Color Undigested Food Weight 122.2 kg BMI result Body Mass Index 39.8 - Constitutional Present: no acute distress, mild distress, somnolent - Routine HEENT Exam Head: Present: atraumatic, normal inspection, normocephalic - Routine Neck Exam Present: full ROM - Routine Respiratory Exam Present: decreased breath sounds - Routine Cardiovascular Exam Cardiovascular: Present: RRR - Routine Abdominal Exam Present: diminished bowel sounds - Routine Extremities Exam Present: full ROM Data - Labs CBC & Chem 7: 09/05/24 06:39 09/05/24 06:39 - Imaging Radiologist's impression: ITS Impressions KUB X-Ray 08/29/24 13:25 IMPRESSION: 1. Prominent fecal loading of the ascending colon greatest along its proximal segment measuring up to 10.8 cm. 2. There is air-filled dilatation of the remaining colon measuring up to 8.4 cm. Electronically signed by: Angeles Galeas MD 08/29/2024 01:41 PM EDT RP Chest X-Ray 08/29/24 13:54 IMPRESSION: 1. Bronchial thickening suggesting infectious/inflammatory etiology. 2. Elevation right hemidiaphragm. 3. Left basilar atelectasis. Electronically signed by: Angeles Galeas MD 08/29/2024 03:07 PM EDT RP Abdomen/Pelvis CT 10/27/24 15:18 IMPRESSION: 1. No hydronephrosis. 2. Partially visualized patchy opacities in bilateral lung bases which may represent edema or infection. 3. Diffuse anasarca. Fleischner guidelines were followed. Electronically signed by: Mike Galan MD 08/29/2024 03:39 PM EDT RP Assessment and Plan Patient Active problem list reviewed?: Yes (1) Leukocytosis Status: Acute Assessment and plan: 44-year-old gentleman with polysubstance abuse, cocaine, presents with generalized weakness. Noted to have leukocytosis with WBC of 52, and significant anemia with hemoglobin of 6.7. DIFFERENTIAL DIAGNOSIS: 1. REACTIVE/LEUKEMOID REACTION: Most likely. 2. MYELOPROLIFERATIVE NEOPLASM i.e CML. PLAN: Will check : LDH: 341. BCR-ABL gene transcript: checked. Anemia workup. He is recieving a couple of Blood transfusions. Thank you for the consult, I will follow along with you, CC: Cristina Stover. - Time Spent With Patient Time Spent with Patient (in minutes): 15
--- NOTE | 2024-09-05 14:34 | HO.PM.IMPN ---
Subjective Subjective Date of Service: 09/05/24 Interval History: Seen and evaluated this morning Feels better as swelling going down Creatinine increased to 4 Plan Permacath placement tomorrow No other overnight events Review of Systems Review of Systems: Yes all other systems are reviewed and are negative Physical Exam Vital Signs: Vital Signs: Last Vital Signs Temp 98.5 F 09/05/24 10:46 Pulse 89 09/05/24 10:46 Resp 18 09/05/24 10:46 BP 116/56 L 09/05/24 10:46 Pulse Ox 96 09/05/24 10:46 O2 Del Method Room Air 09/05/24 10:46 O2 Flow Rate 2 08/30/24 02:00 BMI result Body Mass Index 39.8 Const: Other: Constitutional : Awake, interactive, not in distress Neck : Normal inspection, Supple Cardiovascular : RRR, no JVP, no lower extremity edema Respiratory : good bilateral air entry, no crackles, wheezes or rhonchi Gastrointestinal: soft, lax, Normal bowel sounds, Non tender Skin : Warm, Dry, multiple skin picking gabriel, BKA right, LLE callus with dry skin, Dialysis catheter in place , Urinary: scrotal swelling improving Neurological : Alert & oriented x3, No focal deficit Objective Data Active Medications Acetaminophen (Acetaminophen 325 Mg Tablet) 650 mg PO Q6H PRN PRN Reason: Pain, Mild (Pain Scale 1-3), fever or headache Last Admin: 09/04/24 19:37 Dose: 650 mg Documented By: STACIE Albuterol/Ipratropium (Albuterol/Iprat 2.5/0.5mg 3 Ml Ampul.Neb) 3 ml INHALE Q4H PRN PRN Reason: Wheezing Last Admin: 09/05/24 09:27 Dose: 3 ml Documented By: GARY Benzocaine (Throat Lozenge, Medicated Lozenge) 1 lozenge MUCOUS MEM Q2H PRN PRN Reason: Sore Throat Last Admin: 09/01/24 13:46 Dose: 1 lozenge Documented By: GAYATRI Buprenorphine/Naloxone (Buprenorphine/Naloxone 2/0.5mg Film) 0.25 film SUBLINGUAL BID@0800,1800 LYSSA Stop: 09/05/24 18:01 Last Admin: 09/05/24 09:03 Dose: 0.25 film Documented By: ROSCOE Buprenorphine/Naloxone (Buprenorphine/Naloxone 2/0.5mg Film) 0.5 film SUBLINGUAL ONCE ONE Stop: 09/06/24 08:01 Buprenorphine/Naloxone (Buprenorphine/Naloxone 2/0.5mg Film) 0.5 film SUBLINGUAL ONCE ONE Stop: 09/06/24 18:01 Buprenorphine/Naloxone (Buprenorphine/Naloxone 2/0.5mg Film) 1 film SUBLINGUAL BID@0800,1800 [facility] Stop: 09/07/24 18:01 Calcitriol (Calcitriol 0.25 Mcg Capsule) 0.25 mcg PO DAILY [facility] Last Admin: 09/05/24 09:02 Dose: 0.25 mcg Documented By: ROSCOE Calcium Acetate (Calcium Acetate 667 Mg Capsule) 1,334 mg PO TIDWM [facility] Last Admin: 09/05/24 12:31 Dose: 1,334 mg Documented By: ROSCOE Calcium Carbonate (Calcium Carbonate 750 Mg Tab.Chew) 750 mg PO Q4H PRN PRN Reason: Heartburn Last Admin: 09/05/24 10:14 Dose: 750 mg Documented By: ROSCOE Docusate Sodium (Docusate Sodium 100 Mg Capsule) 100 mg PO BID [facility] Last Admin: 09/05/24 09:02 Dose: 100 mg Documented By: ROSCOE Glucose (Glucose Gel 15 Gm Gel..Gram.) 15 gm PO Q15M PRN; Protocol PRN Reason: per Hypoglycemia Standing Ord. Guaifenesin/Codeine Phosphate (Guaifen/Codeine Sf 200/20/10ml 10 Ml Liquid) 5 ml PO Q6H PRN PRN Reason: Cough Last Admin: 09/04/24 19:37 Dose: 5 ml Documented By: STACIE Heparin Sodium (Porcine) (Heparin Sodium,Porcine 5,000 Unit/Ml Vial) 5,000 unit SUBCUT Q12H [facility] Last Admin: 09/05/24 12:31 Dose: 5,000 unit Documented By: ROSCOE Dextrose (D10) 250 mls @ 750 mls/hr IV Q15M PRN; Protocol PRN Reason: per Hypoglycemia Standing Ord. Insulin Human Lispro (Insulin Lispro 100 Unit/Ml 3 Ml Vial) 0 unit SUBCUT QIDACHS [facility]; Protocol Last Admin: 09/05/24 12:32 Dose: 4 unit Documented By: ROSCOE Lactulose (Lactulose 20 Gm/30 Ml Solution) 20 gm PO BID [facility] Last Admin: 09/05/24 09:02 Dose: 20 gm Documented By: ROSCOE Melatonin (Melatonin 3 Mg Tablet) 6 mg PO BEDTIME PRN PRN Reason: Insomnia Last Admin: 08/31/24 20:09 Dose: 6 mg Documented By: PETE Methadone HCl (Methadone Hcl 20 Mg/2 Ml Oral.Conc) 50 mg PO DAILY@0900 [facility] Last Admin: 09/05/24 10:15 Dose: 50 mg Documented By: ROSCOE Co-signed By: AUSTIN Multivitamins/Vitamin C (Multivitamin Tablet) 1 tab PO DAILY [facility] Last Admin: 09/05/24 09:02 Dose: 1 tab Documented By: ROSCOE Nicotine (Nicotine 14 Mg Patch.Td24) 14 mg TRANSDERMA DAILY [facility] Last Admin: 09/05/24 09:03 Dose: 14 mg Documented By: ROSCOE Ondansetron HCl (Ondansetron Hcl 4 Mg/2 Ml Vial) 4 mg IVPUSH Q8H PRN PRN Reason: Nausea and Vomiting Last Admin: 08/31/24 11:09 Dose: 4 mg Documented By: HERIPASheryl Psyllium Hydrophilic Mucilloid (Psyllium Seed 3.7 Gm Packet) 3.7 gm PO DAILY [facility] Last Admin: 09/05/24 09:04 Dose: 3.7 gm Documented By: ROSCOE Sodium Chloride (0.9 % Sodium Chloride Flush 3 Ml Syringe) 3 ml IVFLUSH QSHIFT [facility] Last Admin: 09/05/24 09:04 Dose: 3 ml Documented By: ROSCOE Labs 09/05/24 06:39 09/05/24 06:39 Labs: Laboratory Results - last 24 hr 09/04/24 09/04/24 09/05/24 16:01 19:37 06:39 MCV 89.1 MCH 28.4 MCHC 31.9 RDW 17.0 H Plt Count 281 MPV 11.8 Absolute Nucleated RBC 0.000 Nucleated RBC % (auto) 0.0 Anion Gap 17 Estim Creat Clear Calc 29.1 Estimated GFR 16 POC Glucose 125 H 236 H Random Glucose 216 H Calcium 7.1 L 09/05/24 09/05/24 07:24 10:48 MCV MCH MCHC RDW Plt Count MPV Absolute Nucleated RBC Nucleated RBC % (auto) Anion Gap Estim Creat Clear Calc Estimated GFR POC Glucose 239 H 202 H Random Glucose Calcium Assessment and Plan (1) Acute renal failure: Status: Acute (2) Opioid use disorder, severe, dependence: Status: Acute (3) Callus of foot: Status: Acute Plan 44M PMH hypertension, hyperlipidemia, diabetes, CKD 3, polysubstance dependence, history of peripheral vascular disease presented with weakness found to have angelo, anemia, leukocysotis, acidosis acute metabolic encephalopathy due to uremic encephalopathy due to ANGELO on CKD 3 complicated by acute metabolic acidosis, mentation improved back to baseline catheter placement 08/30/24 and started dialysis Elevated IgG, IGA, normal compliment level and PR3, MP follow-up BMP Cr to 4 after holding HD over the weekend. He had 3 HD sessions Nephrology input appreciated, will likely need kidney biopsy Place PErmacath Acute on chronic anemia with Leukocytosis WBC down to 23k likely leukomoid tosha Hb stable at 8 after 3 units transfusion no clear source of infection, no sepsis Likely leukemoid reaction per peripheral smear Elevated LDH, Haptoglobin Echo r\o vegetation but EF 43% hematology input appreciated, BCR-ABL gene Give Epogen with HD given Acute hypocalcemia corrected at 7.9 replacement given Elevated PTH, start Calcitriol Hx drug abuse U.Tox +ve for Cocaine, Opiates, Fentanyl and Oxy Addiciton team following Methadone started Diabetes II Insulin sliding scale Hypertension Hold BP meds for now Scrotal swelling secondary to fluid overload support, dialysis, monitor DVT prophylaxis start Heparin SC Full code reason for continued hospitalization:severe angelo requiring Dialysis, blood trnasfusion Quality Stroke Does the patient have a stroke diagnosis?: No VTE Prior VTE?: No VTE Risk Level:: Medical - moderate - high VTE Device Contraindication: N/A - Device Ordered VTE Drug Contraindication: Treatment Not Indicated
[2024-09-05 16:07] LABS: Glucose, Whole Blood 149 mg/dL (60-115)
[2024-09-05] MEDS: methocarbamoL 500 MG TABLET 1000 MG PO (17:19)
[2024-09-05 19:48] LABS: Glucose, Whole Blood 298 mg/dL (60-115)
[2024-09-05] MEDS: Acetaminophen 325 MG TABLET 975 MG PO (21:00)
[2024-09-05] MEDS: methocarbamoL 500 MG TABLET PO (21:13)
[2024-09-05] MEDS: Pantoprazole Sodium 40 MG/10 ML VIAL IVPUSH (21:41)
[2024-09-05] MEDS: Magnesium Hydrox/Alum Hydrox 30 ML ORAL.SUSP PO (21:41)
[2024-09-06] VITALS (12 sets, daily range): BP systolic 110–131; BP diastolic 53–67; PULSE 58–95; RESP 17–19; TEMP 36.1–37.2; O2SAT 95–98
--- NOTE | 2024-09-06 00:32 | PC.NURSE ---
Addendum entered by Abbe Larkin RN 09/06/24 02:16: pt states clearly when asked about level of pain, I feel good Addendum entered by Abbe Larkin RN 09/06/24 00:46: this nurse also included education on food consumption before bed and cause of symptoms of heartburn. pt states he undertands. continues to repeat aforementioned behavior of requesting snacks and supining bed. call arcos in reach. pt states pain managed. plan of care continues Original Note: pt complaining of severe heartburn. blood sugar 298. pringles and snacks on bedside table. bag of gummy bears in patient hand. mother insisting he has not eaten any food all day. details discussed with MD. pt provided maalox and protonix for heartburn. this nurse attempted education on maintaining head of bed elevated to help manage symptoms. pt continues to be found adjusting own bed to fully supine. pt continues to ask staff for snacks. this nurse provided education to patient and mother on current blood sugar level and implications of hyperglycemia. patient mother insisting on feeding patient more snacks. patient A+Ox4.
[2024-09-06] MEDS: Albuterol/Iprat 2.5/0.5MG 3 ML AMPUL.NEB INHALE ×2 (02:20→20:46)
[2024-09-06] MEDS: methADONE HCl 20 MG/2 ML ORAL.CONC 50 MG PO (04:00)
[2024-09-06 04:14] LABS: Glucose, Whole Blood 242 mg/dL (60-115)
[2024-09-06 05:52] LABS: Hematocrit 21.2 % (42.0-52.0); Mean Corpuscular HGB Conc 32.1 g/dl (31.0-36.0); Mean Corpuscular Hemoglobin 28.6 pg (27.0-33.0); Mean Corpuscular Volume 89.1 fL (80.0-98.0); Mean Platelet Volume 11.6 fL (9.4-12.4); Platelet Count 317 X10*3/uL (160-400); Red Blood Count 2.38 X10*6/uL (4.60-5.80); Red Cell Distribution Width 17.6 % (11.0-16.0); White Blood Count 21.7 X10*3/uL (4.8-10.8)
[2024-09-06 06:00] LABS: Hemoglobin 6.8 g/dl (14.0-18.0)
[2024-09-06 06:12] LABS: Anion Gap 15 (12-20); Blood Urea Nitrogen 69 mg/dL (9-16); Carbon Dioxide 20 mmol/L (22-29); Chloride 102 mmol/L (96-108); Estimated Glomerular Filt Rate 14; Glucose Random 264 mg/dL (60-115); Potassium 3.8 mmol/L (3.3-5.1); Sodium 133 mmol/L (135-145)
[2024-09-06 07:22] LABS: Glucose, Whole Blood 206 mg/dL (60-115)
[2024-09-06] MEDS: Docusate Sodium 100 MG CAPSULE PO ×2 (07:50→21:58)
[2024-09-06] MEDS: Calcium Acetate 667 MG CAPSULE 1334 MG PO ×3 (07:50→18:07)
[2024-09-06] MEDS: Insulin Lispro 100 UNIT/ML 3 ML VIAL SUBCUT ×2 (07:50→22:07)
[2024-09-06] MEDS: Multivitamin TABLET 1 TAB PO (07:50)
[2024-09-06] MEDS: Nicotine 14 MG PATCH.TD24 TRANSDERMA (07:51)
[2024-09-06] MEDS: Buprenorphine/Naloxone 2/0.5mg FILM 0.5 FILM SUBLINGUAL ×2 (07:51→18:09)
[2024-09-06] MEDS: Lactulose 20 GM/30 ML SOLUTION PO ×2 (07:51→22:07)
[2024-09-06] MEDS: Psyllium seed 3.7 GM PACKET PO (07:51)
[2024-09-06] MEDS: 0.9 % Sodium Chloride Flush 3 ML SYRINGE IVFLUSH (07:51)
[2024-09-06] MEDS: calcitrioL 0.25 MCG CAPSULE PO (07:52)
--- NOTE | 2024-09-06 11:11 | P.PNNP_ITS ---
Subjective Subjective Date of Service: 09/06/24 Interval history: 44 y/o male with a medical history of HTN, HLD, CKD3, polysubstance dependence, PVD. 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 He presented on 08/29 with weakness, abdominal bloating, lower extremity edema/pain. creatinine 6.79 on 08/29 (previous creatinine 2.02 from 1 year ago), started HD on 08/30; creatinine 09/03 is 3.38, 3.31 on 09/02 (ultrafiltration and removed 4kg on 09/02); BUN 63 09/03 potassium 3.8 09/03 sodium 129 08/29, 131 08/30, 133 08/31, 133 09/02, 131 09/03 serum bicarb 20 on 09/03 (down from 23 yesterday) urine prot/creat ratio 7.441 on 08/29; UPEP pending. No blood in urine from 08/29 CT abd/pelvis on 08/29 showed no hydronephrosis, kidneys/ureters unremarkable, showed diffuse anasarca and pulmonary edema. Liver unremarkable. TTE on 09/03 without obvious valvular pathology pt had right IJ trialysis catheter placed by IR 08/30, received HD 08/30, 08/31, 09/01, 09/03 plan for permacath placement 09/06 Patient today is alert and oriented states his breathing feels ok but seems to have worsened over weekend denies chest pain, abdominal pain, flank pain states swelling has continued to improve in abdomen, scrotum, lower extremities denies muscle cramping, tremors, jerking movements denies pruritus, nausea, vomiting pt is making urine (verde), 1150mL over last 24 hours Physical Exam 2 Vital Signs: Vital Signs: Last Vital Signs Temp 97.7 F 09/06/24 08:42 Pulse 92 09/06/24 08:42 Resp 18 09/06/24 08:42 BP 113/62 09/06/24 08:42 Pulse Ox 96 09/06/24 07:32 O2 Del Method Room Air 09/06/24 07:32 O2 Flow Rate 2 08/30/24 02:00 BMI result Body Mass Index 39.8 Const: General: no acute distress, alert and awake Resp: Effort & Inspection: normal respiratory effort Auscultation: rhonchi Cardio: Jugular venous distension: no JVD Rate: regular rate Rhythm: r egular rhythm Heart sounds: S1 normal heart sound present and S2 normal heart sound present GI: Palpation (GI): Soft to palpation, Tenderness to palpation present (GI) (tender to palpation of lower abdomen edematous) and Other GI palpation findings present (pitting edema lower abdomen improving ) : General: Yes no CVA tenderness Back/Spine/Pelvis: Back: no CVA tenderness Skin: Lesions: no lesions Rashes: no rashes Neuro: General: moves all extremities Motor exam (neuro): no tremor noted, no asterixis, Motor abnormalites present and Other motor observations present (patient had episode of full-body, transient jerk x1 during examination) Extrem: General: Yes edema (pitting edema lower extremities) Objective Data Labs 09/06/24 05:33 09/06/24 05:33 Labs: Laboratory Results - last 24 hr 08/29/24 09/05/24 09/05/24 19:19 15:53 19:19 WBC RBC Hgb Hct MCV MCH MCHC RDW Plt Count MPV Absolute Nucleated RBC Nucleated RBC % (auto) Sodium Potassium Chloride Carbon Dioxide Anion Gap BUN Creatinine Estim Creat Clear Calc Estimated GFR POC Glucose 149 H 298 H Random Glucose Calcium BCR/abl Interp & Reprt See Note Blood Type Antibody Screen Crossmatch 09/06/24 09/06/24 09/06/24 02:40 05:33 07:00 WBC 21.7 H RBC 2.38 L Hgb 6.8 L* Hct 21.2 L MCV 89.1 MCH 28.6 MCHC 32.1 RDW 17.6 H Plt Count 317 MPV 11.6 Absolute Nucleated RBC 0.000 Nucleated RBC % (auto) 0.0 Sodium 133 L Potassium 3.8 Chloride 102 Carbon Dioxide 20 L Anion Gap 15 BUN 69 H Creatinine 4.57 H* Estim Creat Clear Calc 26.0 Estimated GFR 14 POC Glucose 242 H Random Glucose 264 H Calcium 7.0 L BCR/abl Interp & Reprt Blood Type O Positive Antibody Screen NEGATIVE Crossmatch See Detail 09/06/24 07:18 WBC RBC Hgb Hct MCV MCH MCHC RDW Plt Count MPV Absolute Nucleated RBC Nucleated RBC % (auto) Sodium Potassium Chloride Carbon Dioxide Anion Gap BUN Creatinine Estim Creat Clear Calc Estimated GFR POC Glucose 206 H Random Glucose Calcium BCR/abl Interp & Reprt Blood Type Antibody Screen Crossmatch Microbiology Microbiology Results: Microbiology 08/29/24 14:03 Blood - Venous Blood Culture - Final No growth after 5 days. 08/29/24 14:03 Blood - Venous Blood Culture - Final No growth after 5 days. 08/29/24 Unknown Urine clean catch - Clean Catch Midstream Urine Culture - Final No growth. 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 at baseline, MERLIN on CKD likely tubular injury, along with natural progression of renal disease likely entering ESRD Unlikely AIN given lack of RBCs in urine Patient has tested positive for cocaine, differential includes cocaine-induced injury patient remains fluid overloaded but continues to improve intermittently with HD Renal function has not shown improvement/stability over the weekend after session on Friday, creatinine and BUN have been increasing pt had right IJ trialysis catheter placed by IR 08/30 - plan for permacath placement today H&H is low, likely related to CKD, 10,000 units of epogen administered with HD 08/31 has mild metabolic acidosis today potassium within normal limits Calcium 7.0, PTH 7.46. Calcitriol 0.25mg daily Phosphorous elevated at 6.8, calcium acetate 667mg x2 pills TID with meals patient remains fluid-overloaded, will remove 2-3L as tolerated Continue close monitoring of electrolytes, blood pressure, urine output Will continue to follow closely Discussed with Dr Cagle Time Spent With Patient Time: Total time managing care of this patient today ____ minutes. Progress Note: Quality Stroke Does the patient have a stroke diagnosis?: No
[2024-09-06 11:19] LABS: Glucose, Whole Blood 108 mg/dL (60-115)
--- NOTE | 2024-09-06 12:18 | P.PNIM_ITS ---
Subjective Subjective Date of Service: 09/06/24 Interval History: Seen and evaluated this morning Hb dropped to 6.8, to transfuse PRBCs Creatinine increased to 4.6 Plan Permacath placement tomorrow No other overnight events Review of Systems Review of Systems: Yes all other systems are reviewed and are negative Physical Exam 2 Vital Signs: Vital Signs: Last Vital Signs Temp 98.9 F 09/06/24 11:15 Pulse 88 09/06/24 11:15 Resp 17 09/06/24 11:15 BP 114/60 09/06/24 11:15 Pulse Ox 98 09/06/24 11:15 O2 Del Method Room Air 09/06/24 11:15 O2 Flow Rate 2 08/30/24 02:00 BMI result Body Mass Index 39.8 Const: Other: Constitutional : Awake, interactive, not in distress Neck : Normal inspection, Supple Cardiovascular : RRR, no JVP, no lower extremity edema Respiratory : good bilateral air entry, no crackles, wheezes or rhonchi Gastrointestinal: soft, lax, Normal bowel sounds, Non tender Skin : Warm, Dry, multiple skin picking gabriel, BKA right, LLE callus with dry skin, Dialysis catheter in place , Urinary: scrotal swelling improving Neurological : Alert & oriented x3, No focal deficit Objective Data Active Medications Acetaminophen (Acetaminophen 325 Mg Tablet) 975 mg PO Q6H PRN PRN Reason: Pain, Mild (Pain Scale 1-3), fever or headache Last Admin: 09/05/24 21:00 Dose: 975 mg Documented By: VALENTINE Albuterol/Ipratropium (Albuterol/Iprat 2.5/0.5mg 3 Ml Ampul.Neb) 3 ml INHALE Q4H PRN PRN Reason: Wheezing Last Admin: 09/06/24 02:20 Dose: 3 ml Documented By: VALENTINE Benzocaine (Throat Lozenge, Medicated Lozenge) 1 lozenge MUCOUS MEM Q2H PRN PRN Reason: Sore Throat Last Admin: 09/01/24 13:46 Dose: 1 lozenge Documented By: GAYATRI Buprenorphine/Naloxone (Buprenorphine/Naloxone 2/0.5mg Film) 0.5 film SUBLINGUAL ONCE ONE Stop: 09/06/24 18:01 Buprenorphine/Naloxone (Buprenorphine/Naloxone 2/0.5mg Film) 1 film SUBLINGUAL BID@0800,1800 [facility] Stop: 09/07/24 18:01 Calcitriol (Calcitriol 0.25 Mcg Capsule) 0.25 mcg PO DAILY [facility] Last Admin: 09/06/24 07:52 Dose: 0.25 mcg Documented By: ZAIRE Calcium Acetate (Calcium Acetate 667 Mg Capsule) 1,334 mg PO TIDWM COUNT [facility] Last Admin: 09/06/24 07:50 Dose: 1,334 mg Documented By: ZAIRE Calcium Carbonate (Calcium Carbonate 750 Mg Tab.Chew) 750 mg PO Q4H PRN PRN Reason: Heartburn Last Admin: 09/05/24 19:43 Dose: 750 mg Documented By: LAFLAMSuzanna Docusate Sodium (Docusate Sodium 100 Mg Capsule) 100 mg PO BID [facility] Last Admin: 09/06/24 07:50 Dose: 100 mg Documented By: ZAIRE Glucose (Glucose Gel 15 Gm Gel..Gram.) 15 gm PO Q15M PRN; Protocol PRN Reason: per Hypoglycemia Standing Ord. Guaifenesin/Codeine Phosphate (Guaifen/Codeine Sf 200/20/10ml 10 Ml Liquid) 5 ml PO Q6H PRN PRN Reason: Cough Last Admin: 09/04/24 19:37 Dose: 5 ml Documented By: ANTOIC Heparin Sodium (Porcine) (Heparin Sodium,Porcine 5,000 Unit/Ml Vial) 5,000 unit SUBCUT Q12H COUNT [facility] Last Admin: 09/05/24 12:31 Dose: 5,000 unit Documented By: ROSCOE Dextrose (D10) 250 mls @ 750 mls/hr IV Q15M PRN; Protocol PRN Reason: per Hypoglycemia Standing Ord. Insulin Human Lispro (Insulin Lispro 100 Unit/Ml 3 Ml Vial) 0 unit SUBCUT QIDACHS COUNT [facility]; Protocol Last Admin: 09/06/24 11:31 Dose: Not Given Documented By: ZAIRE Non-Admin Reason: No Insulin Coverage Lactulose (Lactulose 20 Gm/30 Ml Solution) 20 gm PO BID [facility] Last Admin: 09/06/24 07:51 Dose: 20 gm Documented By: ZAIRE Melatonin (Melatonin 3 Mg Tablet) 6 mg PO BEDTIME PRN PRN Reason: Insomnia Last Admin: 08/31/24 20:09 Dose: 6 mg Documented By: PETE Methadone HCl (Methadone Hcl 20 Mg/2 Ml Oral.Conc) 50 mg PO DAILY@0900 [facility] Last Admin: 09/06/24 04:00 Dose: 50 mg Documented By: VALENTINE Co-signed By: REJI Methocarbamol (Methocarbamol 500 Mg Tablet) 500 mg PO TID PRN PRN Reason: Muscle Spasm Last Admin: 09/05/24 21:13 Dose: 500 mg Documented By: VALENTINE Multivitamins/Vitamin C (Multivitamin Tablet) 1 tab PO DAILY [facility] Last Admin: 09/06/24 07:50 Dose: 1 tab Documented By: ZAIRE Nicotine (Nicotine 14 Mg Patch.Td24) 14 mg TRANSDERMA DAILY [facility] Last Admin: 09/06/24 07:51 Dose: 14 mg Documented By: ZAIRE Ondansetron HCl (Ondansetron Hcl 4 Mg/2 Ml Vial) 4 mg IVPUSH Q8H PRN PRN Reason: Nausea and Vomiting Last Admin: 08/31/24 11:09 Dose: 4 mg Documented By: DENNY Oxycodone HCl (Oxycodone Hcl Immed Release 5 Mg Tablet) 5 mg PO Q3H PRN PRN Reason: Pain, Severe (Pain Scale 7-10) Pantoprazole Sodium (Pantoprazole Sodium 40 Mg/10 Ml Vial) 40 mg IVPUSH DAILY@0630 [facility] Last Admin: 09/05/24 21:41 Dose: 40 mg Documented By: VALENTINE Psyllium Hydrophilic Mucilloid (Psyllium Seed 3.7 Gm Packet) 3.7 gm PO DAILY COUNT [facility] Last Admin: 09/06/24 07:51 Dose: 3.7 gm Documented By: ZAIRE Sodium Chloride (0.9 % Sodium Chloride Flush 3 Ml Syringe) 3 ml IVFLUSH QSHIFT COUNT [facility]CLUD[facility] Last Admin: 09/06/24 07:51 Dose: 3 ml Documented By: ZAIRE Labs 09/06/24 05:33 09/06/24 05:33 Labs: Laboratory Results - last 24 hr 08/29/24 09/05/24 09/05/24 19:19 15:53 19:19 MCV MCH MCHC RDW Plt Count MPV Absolute Nucleated RBC Nucleated RBC % (auto) Anion Gap Estim Creat Clear Calc Estimated GFR POC Glucose 149 H 298 H Random Glucose Calcium BCR/abl Interp & Reprt See Note Blood Type Antibody Screen Crossmatch 09/06/24 09/06/24 09/06/24 02:40 05:33 07:00 MCV 89.1 MCH 28.6 MCHC 32.1 RDW 17.6 H Plt Count 317 MPV 11.6 Absolute Nucleated RBC 0.000 Nucleated RBC % (auto) 0.0 Anion Gap 15 Estim Creat Clear Calc 26.0 Estimated GFR 14 POC Glucose 242 H Random Glucose 264 H Calcium 7.0 L BCR/abl Interp & Reprt Blood Type O Positive Antibody Screen NEGATIVE Crossmatch See Detail 09/06/24 09/06/24 07:18 11:06 MCV MCH MCHC RDW Plt Count MPV Absolute Nucleated RBC Nucleated RBC % (auto) Anion Gap Estim Creat Clear Calc Estimated GFR POC Glucose 206 H 108 Random Glucose Calcium BCR/abl Interp & Reprt Blood Type Antibody Screen Crossmatch Assessment and Plan (1) Constipation: Status: Acute (2) Acute renal failure: Status: Acute (3) Need for acute hemodialysis: Status: Acute Plan 44M PMH hypertension, hyperlipidemia, diabetes, CKD 3, polysubstance dependence, history of peripheral vascular disease presented with weakness found to have angelo, anemia, leukocysotis, acidosis acute metabolic encephalopathy due to uremic encephalopathy due to ANGELO on CKD 3 complicated by acute metabolic acidosis, mentation improved back to baseline catheter placement 08/30/24 and started dialysis Elevated IgG, IGA, normal compliment level and PR3, MP follow-up BMP Cr to 4.6 after holding HD over the weekend. He had 3 HD sessions, to do HD today Nephrology input appreciated, will need outpatient HD spot Place PErmacath Acute on chronic anemia with Leukocytosis WBC down to 21k likely leukomoid tosha Hb dropped to 6.8 after 3 units transfusion, to give 1 more unit hematology input appreciated, BCR-ABL gene ? Give Epogen with HD given Acute hypocalcemia corrected at 7.9 replacement given Elevated PTH, start Calcitriol Hx drug abuse U.Tox +ve for Cocaine, Opiates, Fentanyl and Oxy Addiciton team following Methadone started Diabetes II Insulin sliding scale Hypertension Hold BP meds for now Scrotal swelling secondary to fluid overload support, dialysis, monitor DVT prophylaxis start Heparin SC Full code reason for continued hospitalization:severe angelo requiring Dialysis, blood trnasfusion Quality Stroke Does the patient have a stroke diagnosis?: No VTE Prior VTE?: No VTE Risk Level:: Medical - moderate - high VTE Device Contraindication: N/A - Device Ordered VTE Drug Contraindication: Treatment Not Indicated
--- NOTE | 2024-09-06 13:59 | MHC.CM.PN ---
EMR reviewed and per MD rounds, pt is not medically cleared for discharge due to management of MERLIN with permacath placement pending tomorrow.
[2024-09-06] MEDS: Acetaminophen 325 MG TABLET 975 MG PO (16:10)
[2024-09-06 17:21] LABS: Glucose, Whole Blood 116 mg/dL (60-115)
[2024-09-06 20:51] LABS: Glucose, Whole Blood 160 mg/dL (60-115)
[2024-09-06] MEDS: methocarbamoL 500 MG TABLET PO (21:58)
[2024-09-06] MEDS: oxyCODONE HCl Immed Release 5 MG TABLET PO (21:58)
[2024-09-06] MEDS: guaiFEN/Codeine SF 200/20/10ML 10 ML LIQUID 5 ML PO (21:58)
[2024-09-06] MEDS: Melatonin 3 MG TABLET 6 MG PO (21:58)
[2024-09-07] VITALS (9 sets, daily range): BP systolic 110–138; BP diastolic 53–62; PULSE 77–90; RESP 16–22; TEMP 36.3–36.9; O2SAT 93–99
[2024-09-07] MEDS: oxyCODONE HCl Immed Release 5 MG TABLET PO ×2 (02:25→12:12)
[2024-09-07] MEDS: methADONE HCl 20 MG/2 ML ORAL.CONC 50 MG PO (06:38)
[2024-09-07] MEDS: Pantoprazole Sodium 40 MG/10 ML VIAL IVPUSH (06:38)
[2024-09-07 07:17] LABS: Glucose, Whole Blood 152 mg/dL (60-115)
[2024-09-07 07:35] LABS: Hematocrit 24.3 % (42.0-52.0); Hemoglobin 7.6 g/dl (14.0-18.0); Mean Corpuscular HGB Conc 31.3 g/dl (31.0-36.0); Mean Corpuscular Hemoglobin 28.4 pg (27.0-33.0); Mean Corpuscular Volume 90.7 fL (80.0-98.0); Mean Platelet Volume 11.4 fL (9.4-12.4); Platelet Count 315 X10*3/uL (160-400); Red Blood Count 2.68 X10*6/uL (4.60-5.80); Red Cell Distribution Width 17.7 % (11.0-16.0); White Blood Count 23.3 X10*3/uL (4.8-10.8)
[2024-09-07] MEDS: Insulin Lispro 100 UNIT/ML 3 ML VIAL SUBCUT ×4 (07:45→21:03)
[2024-09-07] MEDS: Buprenorphine/Naloxone 2/0.5mg FILM 1 FILM SUBLINGUAL ×2 (07:46→17:43)
[2024-09-07] MEDS: Nicotine 14 MG PATCH.TD24 TRANSDERMA (07:52)
[2024-09-07 08:02] LABS: Anion Gap 14 (12-20); Blood Urea Nitrogen 46 mg/dL (9-16); Calcium 7.6 mg/dL (8.4-10.2); Carbon Dioxide 21 mmol/L (22-29); Chloride 102 mmol/L (96-108); Creatinine Clr Calc Pharmacy 34.7; Estimated Glomerular Filt Rate 19; Glucose Random 155 mg/dL (60-115); Potassium 3.8 mmol/L (3.3-5.1); Sodium 133 mmol/L (135-145)
[2024-09-07 10:52] LABS: Phosphorus 5.5 mg/dL (2.7-4.5)
[2024-09-07 12:01] LABS: Glucose, Whole Blood 339 mg/dL (60-115)
[2024-09-07] MEDS: Calcium Acetate 667 MG CAPSULE 1334 MG PO (12:09)
[2024-09-07] MEDS: 0.9 % Sodium Chloride Flush 3 ML SYRINGE IVFLUSH ×2 (12:09→17:48)
--- NOTE | 2024-09-07 13:37 | P.PNNP_ITS ---
Subjective Subjective Date of Service: 09/07/24 Interval history: 44 y/o male with a medical history of HTN, HLD, CKD3, polysubstance dependence, PVD. 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 He presented on 08/29 with weakness, abdominal bloating, lower extremity edema/pain. creatinine 6.79 on 08/29 (previous creatinine 2.02 from 1 year ago), started HD on 08/30; creatinine 09/03 is 3.38, 3.31 on 09/02 (ultrafiltration and removed 4kg on 09/02); BUN 63 09/03 potassium 3.8 09/03 sodium 129 08/29, 131 08/30, 133 08/31, 133 09/02, 131 09/03 serum bicarb 20 on 09/03 (down from 23 yesterday) urine prot/creat ratio 7.441 on 08/29; UPEP pending. No blood in urine from 08/29 CT abd/pelvis on 08/29 showed no hydronephrosis, kidneys/ureters unremarkable, showed diffuse anasarca and pulmonary edema. Liver unremarkable. TTE on 09/03 without obvious valvular pathology pt had right IJ trialysis catheter placed by IR 08/30, received HD 08/30, 08/31, 09/01, 09/03 plan for permacath placement 09/06 Patient today is alert and oriented states his breathing feels ok but seems to have worsened over weekend denies chest pain, abdominal pain, flank pain states swelling has continued to improve in abdomen, scrotum, lower extremities denies muscle cramping, tremors, jerking movements denies pruritus, nausea, vomiting pt is making urine (verde), 1150mL over last 24 hours Physical Exam 2 Vital Signs: Vital Signs: Last Vital Signs Temp 97.8 F 09/07/24 11:56 Pulse 82 09/07/24 11:56 Resp 16 09/07/24 11:56 BP 138/57 L 09/07/24 11:56 Pulse Ox 97 09/07/24 11:56 O2 Del Method Room Air 09/07/24 11:56 O2 Flow Rate 2 08/30/24 02:00 BMI result Body Mass Index 39.8 Const: General: no acute distress, alert and awake Resp: Effort & Inspection: normal respiratory effort Auscultation: rhonchi Cardio: Jugular venous distension: no JVD Rate: regular rate Rhythm: r egular rhythm Heart sounds: S1 normal heart sound present and S2 normal heart sound present GI: Palpation (GI): Soft to palpation, Tenderness to palpation present (GI) (tender to palpation of lower abdomen edematous) and Other GI palpation findings present (pitting edema lower abdomen improving ) : General: Yes no CVA tenderness Back/Spine/Pelvis: Back: no CVA tenderness Skin: Lesions: no lesions Rashes: no rashes Neuro: General: moves all extremities Motor exam (neuro): no tremor noted, no asterixis, Motor abnormalites present and Other motor observations present (patient had episode of full-body, transient jerk x1 during examination) Extrem: General: Yes edema (pitting edema lower extremities) Objective Data Labs 09/07/24 07:14 09/07/24 07:14 Labs: Laboratory Results - last 24 hr 09/06/24 09/06/24 09/07/24 17:17 20:45 07:13 WBC RBC Hgb Hct MCV MCH MCHC RDW Plt Count MPV Absolute Nucleated RBC Nucleated RBC % (auto) Sodium Potassium Chloride Carbon Dioxide Anion Gap BUN Creatinine Estim Creat Clear Calc Estimated GFR POC Glucose 116 H 160 H 152 H Random Glucose Calcium Phosphorus 09/07/24 09/07/24 07:14 11:53 WBC 23.3 H RBC 2.68 L Hgb 7.6 L Hct 24.3 L MCV 90.7 MCH 28.4 MCHC 31.3 RDW 17.7 H Plt Count 315 MPV 11.4 Absolute Nucleated RBC 0.000 Nucleated RBC % (auto) 0.0 Sodium 133 L Potassium 3.8 Chloride 102 Carbon Dioxide 21 L Anion Gap 14 BUN 46 H Creatinine 3.43 H Estim Creat Clear Calc 34.7 Estimated GFR 19 POC Glucose 339 H Random Glucose 155 H Calcium 7.6 L D Phosphorus 5.5 H Microbiology Microbiology Results: Microbiology 08/29/24 14:03 Blood - Venous Blood Culture - Final No growth after 5 days. 08/29/24 14:03 Blood - Venous Blood Culture - Final No growth after 5 days. 08/29/24 Unknown Urine clean catch - Clean Catch Midstream Urine Culture - Final No growth. Procedures Date of Service Date of Service: 09/07/24 Assessment & Plan Assessment and plan (1) Acute renal failure: Status: Acute (2) MERLIN (acute kidney injury): Status: Acute (3) CKD (chronic kidney disease) stage 3, GFR 30-59 ml/min: Status: Acute Plan Patient with MERLIN on proteinuric CKD Most likely CKD3b 2/2 diabetic nephropathy at baseline, MERLIN on CKD likely tubular injury, along with natural progression of renal disease likely entering ESRD Unlikely AIN given lack of RBCs in urine Patient has tested positive for cocaine, differential includes cocaine-induced injury patient remains fluid overloaded but continues to improve intermittently with HD Renal function continues to decline between HD sessions, in process of arranging outpatient HD at [facility] for patient- he is aware of plan plan for permacath placement today H&H is low, likely related to CKD, 20,000 units procrit SQ injection ordered for today ongoign metabolic acidosis potassium within normal limits Calcium 7.0, PTH 7.46. Calcitriol 0.25mg daily Phosphorous elevated at 5.5 (improving), calcium acetate 667mg x2 pills TID with meals patient remains fluid-overloaded, will remove 2-3L as tolerated with HD tomorrow, 09/08 Continue close monitoring of electrolytes, blood pressure, urine output Will continue to follow closely Discussed with Dr Cagle Time Spent With Patient Time: Total time managing care of this patient today ____ minutes. Progress Note: Quality Stroke Does the patient have a stroke diagnosis?: No
--- NOTE | 2024-09-07 14:00 | P.PNIM_ITS ---
Subjective Subjective Date of Service: 09/07/24 Interval History: Seen and evaluated this morning Hb improved to 7.6 after 1 more unit PRBCs Creatinine improved to 3.4 Plan Permacath placement tomorrow No other overnight events Review of Systems Review of Systems: Yes all other systems are reviewed and are negative Physical Exam 2 Vital Signs: Vital Signs: Last Vital Signs Temp 97.8 F 09/07/24 11:56 Pulse 82 09/07/24 11:56 Resp 16 09/07/24 11:56 BP 138/57 L 09/07/24 11:56 Pulse Ox 97 09/07/24 11:56 O2 Del Method Room Air 09/07/24 11:56 O2 Flow Rate 2 08/30/24 02:00 BMI result Body Mass Index 39.8 Const: Other: Constitutional : Awake, interactive, not in distress Neck : Normal inspection, Supple Cardiovascular : RRR, no JVP, no lower extremity edema Respiratory : good bilateral air entry, no crackles, wheezes or rhonchi Gastrointestinal: soft, lax, Normal bowel sounds, Non tender Skin : Warm, Dry, multiple skin picking gabriel, BKA right, LLE callus with dry skin, Dialysis catheter in place , Urinary: scrotal swelling improving Neurological : Alert & oriented x3, No focal deficit Objective Data Active Medications Acetaminophen (Acetaminophen 325 Mg Tablet) 975 mg PO Q6H PRN PRN Reason: Pain, Mild (Pain Scale 1-3), fever or headache Last Admin: 09/06/24 16:10 Dose: 975 mg Documented By: DYLAN Benzocaine (Throat Lozenge, Medicated Lozenge) 1 lozenge MUCOUS MEM Q2H PRN PRN Reason: Sore Throat Last Admin: 09/01/24 13:46 Dose: 1 lozenge Documented By: GAYATRI Buprenorphine/Naloxone (Buprenorphine/Naloxone 2/0.5mg Film) 1 film SUBLINGUAL BID@0800,1800 [facility] Stop: 09/07/24 18:01 Last Admin: 09/07/24 07:46 Dose: 1 film Documented By: ERIK Calcitriol (Calcitriol 0.25 Mcg Capsule) 0.25 mcg PO DAILY [facility] Last Admin: 09/07/24 07:53 Dose: Not Given Documented By: ERIK Non-Admin Reason: NPO Calcium Acetate (Calcium Acetate 667 Mg Capsule) 1,334 mg PO TIDWM [facility] Last Admin: 09/07/24 12:09 Dose: 1,334 mg Documented By: ERIK Calcium Carbonate (Calcium Carbonate 750 Mg Tab.Chew) 750 mg PO Q4H PRN PRN Reason: Heartburn Last Admin: 09/05/24 19:43 Dose: 750 mg Documented By: VALENTINE Docusate Sodium (Docusate Sodium 100 Mg Capsule) 100 mg PO BID [facility] Last Admin: 09/07/24 07:54 Dose: Not Given Documented By: ERIK Non-Admin Reason: NPO Glucose (Glucose Gel 15 Gm Gel..Gram.) 15 gm PO Q15M PRN; Protocol PRN Reason: per Hypoglycemia Standing Ord. Guaifenesin/Codeine Phosphate (Guaifen/Codeine Sf 200/20/10ml 10 Ml Liquid) 5 ml PO Q6H PRN PRN Reason: Cough Last Admin: 09/06/24 21:58 Dose: 5 ml Documented By: VALENTINE Heparin Sodium (Porcine) (Heparin Sodium,Porcine 5,000 Unit/Ml Vial) 5,000 unit SUBCUT Q12H [facility] Last Admin: 09/05/24 12:31 Dose: 5,000 unit Documented By: ROSCOE Heparin Sodium (Porcine) (Heparin Sodium,Porcine 5,000 Unit/Ml Vial) 5,000 unit INTRACATH MOWEFR@1645 [facility] Dextrose (D10) 250 mls @ 750 mls/hr IV Q15M PRN; Protocol PRN Reason: per Hypoglycemia Standing Ord. Insulin Human Lispro (Insulin Lispro 100 Unit/Ml 3 Ml Vial) 0 unit SUBCUT QIDACHS [facility]; Protocol Last Admin: 09/07/24 12:09 Dose: 8 unit Documented By: ERIK Lactulose (Lactulose 20 Gm/30 Ml Solution) 20 gm PO BID [facility] Last Admin: 09/07/24 07:54 Dose: Not Given Documented By: ERIK Non-Admin Reason: NPO Melatonin (Melatonin 3 Mg Tablet) 6 mg PO BEDTIME PRN PRN Reason: Insomnia Last Admin: 09/06/24 21:58 Dose: 6 mg Documented By: VALENTINE Methadone HCl (Methadone Hcl 20 Mg/2 Ml Oral.Conc) 50 mg PO DAILY@0900 [facility] Last Admin: 09/07/24 06:38 Dose: 50 mg Documented By: VALENTINE Co-signed By: DAVID Methocarbamol (Methocarbamol 500 Mg Tablet) 500 mg PO TID PRN PRN Reason: Muscle Spasm Last Admin: 09/06/24 21:58 Dose: 500 mg Documented By: VALENTINE Multivitamins/Vitamin C (Multivitamin Tablet) 1 tab PO DAILY [facility] Last Admin: 09/07/24 07:54 Dose: Not Given Documented By: ERIK Non-Admin Reason: NPO Nicotine (Nicotine 14 Mg Patch.Td24) 14 mg TRANSDERMA DAILY [facility] Last Admin: 09/07/24 07:52 Dose: 14 mg Documented By: ERIK Ondansetron HCl (Ondansetron Hcl 4 Mg/2 Ml Vial) 4 mg IVPUSH Q8H PRN PRN Reason: Nausea and Vomiting Last Admin: 08/31/24 11:09 Dose: 4 mg Documented By: DENNY Oxycodone HCl (Oxycodone Hcl Immed Release 5 Mg Tablet) 5 mg PO Q3H PRN PRN Reason: Pain, Severe (Pain Scale 7-10) Last Admin: 09/07/24 12:12 Dose: 5 mg Documented By: ERIK Pantoprazole Sodium (Pantoprazole Sodium 40 Mg/10 Ml Vial) 40 mg IVPUSH DAILY@0630 [facility] Last Admin: 09/07/24 06:38 Dose: 40 mg Documented By: VALENTINE Psyllium Hydrophilic Mucilloid (Psyllium Seed 3.7 Gm Packet) 3.7 gm PO DAILY [facility] Last Admin: 09/07/24 07:54 Dose: Not Given Documented By: ERIK Non-Admin Reason: NPO Sodium Chloride (0.9 % Sodium Chloride Flush 3 Ml Syringe) 3 ml IVFLUSH QSHIFT [facility] Last Admin: 09/07/24 12:09 Dose: 3 ml Documented By: ERIK Labs 09/07/24 07:14 09/07/24 07:14 Labs: Laboratory Results - last 24 hr 09/06/24 09/06/24 09/07/24 17:17 20:45 07:13 MCV MCH MCHC RDW Plt Count MPV Absolute Nucleated RBC Nucleated RBC % (auto) Anion Gap Estim Creat Clear Calc Estimated GFR POC Glucose 116 H 160 H 152 H Random Glucose Calcium Phosphorus 09/07/24 09/07/24 07:14 11:53 MCV 90.7 MCH 28.4 MCHC 31.3 RDW 17.7 H Plt Count 315 MPV 11.4 Absolute Nucleated RBC 0.000 Nucleated RBC % (auto) 0.0 Anion Gap 14 Estim Creat Clear Calc 34.7 Estimated GFR 19 POC Glucose 339 H Random Glucose 155 H Calcium 7.6 L D Phosphorus 5.5 H Assessment and Plan (1) Acute renal failure: Status: Acute (2) Anemia: Status: Acute Plan 44M PMH hypertension, hyperlipidemia, diabetes, CKD 3, polysubstance dependence, history of peripheral vascular disease presented with weakness found to have angelo, anemia, leukocysotis, acidosis acute metabolic encephalopathy due to uremic encephalopathy due to ANGELO on CKD 3 complicated by acute metabolic acidosis, mentation improved back to baseline catheter placement 08/30/24 and started dialysis Elevated IgG, IGA, normal compliment level and PR3, MP follow-up BMP Cr to 3.6 after HD session, scheduled [facility] Nephrology input appreciated, will need outpatient HD spot Place PErmacath today Acute on chronic anemia with Leukocytosis WBC down to 21k likely leukomoid tosha Hb improved to 7.6 after 4 units transfusion hematology input appreciated, BCR-ABL gene ? Give Epogen with HD given Acute hypocalcemia corrected at 7.9 replacement given Elevated PTH, start Calcitriol Hx drug abuse U.Tox +ve for Cocaine, Opiates, Fentanyl and Oxy Addiciton team following Methadone started Diabetes II Insulin sliding scale Hypertension Hold BP meds for now Scrotal swelling secondary to fluid overload support, dialysis, monitor DVT prophylaxis start Heparin SC Full code reason for continued hospitalization:severe angelo requiring Dialysis, blood trnasfusion Quality Stroke Does the patient have a stroke diagnosis?: No VTE Prior VTE?: No VTE Risk Level:: Medical - moderate - high VTE Device Contraindication: N/A - Device Ordered VTE Drug Contraindication: Treatment Not Indicated
--- NOTE | 2024-09-07 14:21 | PM.PROC ---
Brief Operative Note Date of procedure: 09/07/24 Pre-op diagnosis: Needs halfway iv access for HD Post-op diagnosis: same Procedure: Right IJ 23 cm Permacath placed using US and FL. Tip at cavoatrial junction. Ok for immediate use.
--- NOTE | 2024-09-07 14:24 | HO.ADDICTPRO ---
Subjective Subjective Date of Service: 09/07/24 Reason For Visit: angelo Interim History: Patient seen in follow up Today is day 4 of methadone to buprenorphine transition Denies any issues related to dose titration Appearing comfortable, reporting good and bad moments , in terms of how he is feeling overall Denies withdrawal sx Scheduled for permacath today Review of Systems Constitutional: Reports as per HPI Mental Status Exam Mental Status Exam Patient Appearance: Appropriate Level of Consciousness: Awake, Appropriate and Alert Patient Behavior: Appropriate and Talkative Mood Description: Calm Affect Description: Calm Diagnostics Vital Signs (24Hr): Vital Signs - 24 hr 09/06/24 17:27 09/06/24 19:41 09/06/24 20:46 Temperature 97.2 F 98.3 F Pulse Rate 90 87 82 Respiratory Rate 18 18 18 Blood Pressure 118/58 L 112/56 L Pulse Oximetry 96 97 Oxygen Delivery Method Room Air Room Air 09/06/24 23:05 09/07/24 03:19 09/07/24 07:47 Temperature 97.3 F 98.3 F 97.3 F Pulse Rate 84 83 77 Respiratory Rate 18 19 17 Blood Pressure 117/54 L 110/53 L 114/59 L Pulse Oximetry 98 96 95 Oxygen Delivery Method Room Air Room Air Room Air 09/07/24 10:30 09/07/24 11:56 Temperature 97.8 F Pulse Rate 77 82 Respiratory Rate 16 Blood Pressure 114/59 L 138/57 L Pulse Oximetry 95 97 Oxygen Delivery Method Room Air BMI result Body Mass Index 39.8 Labs 09/07/24 07:14 09/07/24 07:14 Labs: Laboratory Results - last 48 hr 08/29/24 09/05/24 09/05/24 19:19 15:53 19:19 WBC RBC Hgb Hct MCV MCH MCHC RDW Plt Count MPV Absolute Nucleated RBC Nucleated RBC % (auto) Sodium Potassium Chloride Carbon Dioxide Anion Gap BUN Creatinine Estim Creat Clear Calc Estimated GFR POC Glucose 149 H 298 H Random Glucose Calcium Phosphorus BCR/abl Interp & Reprt See Note Blood Type Antibody Screen Crossmatch 09/06/24 09/06/24 09/06/24 02:40 05:33 07:00 WBC 21.7 H RBC 2.38 L Hgb 6.8 L* Hct 21.2 L MCV 89.1 MCH 28.6 MCHC 32.1 RDW 17.6 H Plt Count 317 MPV 11.6 Absolute Nucleated RBC 0.000 Nucleated RBC % (auto) 0.0 Sodium 133 L Potassium 3.8 Chloride 102 Carbon Dioxide 20 L Anion Gap 15 BUN 69 H Creatinine 4.57 H* Estim Creat Clear Calc 26.0 Estimated GFR 14 POC Glucose 242 H Random Glucose 264 H Calcium 7.0 L Phosphorus BCR/abl Interp & Reprt Blood Type O Positive Antibody Screen NEGATIVE Crossmatch See Detail 09/06/24 09/06/24 09/06/24 07:18 11:06 17:17 WBC RBC Hgb Hct MCV MCH MCHC RDW Plt Count MPV Absolute Nucleated RBC Nucleated RBC % (auto) Sodium Potassium Chloride Carbon Dioxide Anion Gap BUN Creatinine Estim Creat Clear Calc Estimated GFR POC Glucose 206 H 108 116 H Random Glucose Calcium Phosphorus BCR/abl Interp & Reprt Blood Type Antibody Screen Crossmatch 09/06/24 09/07/24 09/07/24 20:45 07:13 07:14 WBC 23.3 H RBC 2.68 L Hgb 7.6 L Hct 24.3 L MCV 90.7 MCH 28.4 MCHC 31.3 RDW 17.7 H Plt Count 315 MPV 11.4 Absolute Nucleated RBC 0.000 Nucleated RBC % (auto) 0.0 Sodium 133 L Potassium 3.8 Chloride 102 Carbon Dioxide 21 L Anion Gap 14 BUN 46 H Creatinine 3.43 H Estim Creat Clear Calc 34.7 Estimated GFR 19 POC Glucose 160 H 152 H Random Glucose 155 H Calcium 7.6 L D Phosphorus 5.5 H BCR/abl Interp & Reprt Blood Type Antibody Screen Crossmatch 09/07/24 11:53 WBC RBC Hgb Hct MCV MCH MCHC RDW Plt Count MPV Absolute Nucleated RBC Nucleated RBC % (auto) Sodium Potassium Chloride Carbon Dioxide Anion Gap BUN Creatinine Estim Creat Clear Calc Estimated GFR POC Glucose 339 H Random Glucose Calcium Phosphorus BCR/abl Interp & Reprt Blood Type Antibody Screen Crossmatch Imaging Radiology Impressions: ITS Impressions KUB X-Ray 08/29/24 13:25 IMPRESSION: 1. Prominent fecal loading of the ascending colon greatest along its proximal segment measuring up to 10.8 cm. 2. There is air-filled dilatation of the remaining colon measuring up to 8.4 cm. Electronically signed by: Angeles Galeas MD 08/29/2024 01:41 PM EDT RP Chest X-Ray 08/29/24 13:54 IMPRESSION: 1. Bronchial thickening suggesting infectious/inflammatory etiology. 2. Elevation right hemidiaphragm. 3. Left basilar atelectasis. Electronically signed by: Angeles Galeas MD 08/29/2024 03:07 PM EDT RP Abdomen/Pelvis CT 08/29/24 15:18 IMPRESSION: 1. No hydronephrosis. 2. Partially visualized patchy opacities in bilateral lung bases which may represent edema or infection. 3. Diffuse anasarca. Fleischner guidelines were followed. Electronically signed by: Mike Galan MD 08/29/2024 03:39 PM EDT RP Medications Medications Current Medications Acetaminophen (Acetaminophen 325 Mg Tablet) 975 mg PO Q6H PRN PRN Reason: Pain, Mild (Pain Scale 1-3), fever or headache Last Admin: 09/06/24 16:10 Dose: 975 mg Benzocaine (Throat Lozenge, Medicated Lozenge) 1 lozenge MUCOUS MEM Q2H PRN PRN Reason: Sore Throat Last Admin: 09/01/24 13:46 Dose: 1 lozenge Buprenorphine/Naloxone (Buprenorphine/Naloxone 2/0.5mg Film) 1 film SUBLINGUAL BID@0800,1800 [facility] Stop: 09/07/24 18:01 Last Admin: 09/07/24 07:46 Dose: 1 film Buprenorphine/Naloxone (Buprenorphine/Naloxone 4/1 Mg Film) 1 film SUBLINGUAL BID@0800,1800 [facility] Stop: 09/08/24 18:01 Buprenorphine/Naloxone (Buprenorphine/Naloxone 8/2 Mg Film) 1 film SUBLINGUAL ONCE ONE Stop: 09/09/24 08:01 Calcitriol (Calcitriol 0.25 Mcg Capsule) 0.25 mcg PO DAILY [facility] Last Admin: 09/07/24 07:53 Dose: Not Given Calcium Acetate (Calcium Acetate 667 Mg Capsule) 1,334 mg PO TIDWM [facility] Last Admin: 09/07/24 12:09 Dose: 1,334 mg Calcium Carbonate (Calcium Carbonate 750 Mg Tab.Chew) 750 mg PO Q4H PRN PRN Reason: Heartburn Last Admin: 09/05/24 19:43 Dose: 750 mg Docusate Sodium (Docusate Sodium 100 Mg Capsule) 100 mg PO BID [facility] Last Admin: 09/07/24 07:54 Dose: Not Given Glucose (Glucose Gel 15 Gm Gel..Gram.) 15 gm PO Q15M PRN; Protocol PRN Reason: per Hypoglycemia Standing Ord. Guaifenesin/Codeine Phosphate (Guaifen/Codeine Sf 200/20/10ml 10 Ml Liquid) 5 ml PO Q6H PRN PRN Reason: Cough Last Admin: 09/06/24 21:58 Dose: 5 ml Heparin Sodium (Porcine) (Heparin Sodium,Porcine 5,000 Unit/Ml Vial) 5,000 unit SUBCUT Q12H [facility] Last Admin: 09/05/24 12:31 Dose: 5,000 unit Heparin Sodium (Porcine) (Heparin Sodium,Porcine 5,000 Unit/Ml Vial) 5,000 unit INTRACATH MOWEFR@1645 [facility] Dextrose (D10) 250 mls @ 750 mls/hr IV Q15M PRN; Protocol PRN Reason: per Hypoglycemia Standing Ord. Insulin Human Lispro (Insulin Lispro 100 Unit/Ml 3 Ml Vial) 0 unit SUBCUT QIDACHS [facility]; Protocol Last Admin: 09/07/24 12:09 Dose: 8 unit Lactulose (Lactulose 20 Gm/30 Ml Solution) 20 gm PO BID [facility] Last Admin: 09/07/24 07:54 Dose: Not Given Melatonin (Melatonin 3 Mg Tablet) 6 mg PO BEDTIME PRN PRN Reason: Insomnia Last Admin: 09/06/24 21:58 Dose: 6 mg Methadone HCl (Methadone Hcl 20 Mg/2 Ml Oral.Conc) 50 mg PO DAILY@0900 [facility] Last Admin: 09/07/24 06:38 Dose: 50 mg Methocarbamol (Methocarbamol 500 Mg Tablet) 500 mg PO TID PRN PRN Reason: Muscle Spasm Last Admin: 09/06/24 21:58 Dose: 500 mg Multivitamins/Vitamin C (Multivitamin Tablet) 1 tab PO DAILY [facility] Last Admin: 09/07/24 07:54 Dose: Not Given Nicotine (Nicotine 14 Mg Patch.Td24) 14 mg TRANSDERMA DAILY [facility] Last Admin: 09/07/24 07:52 Dose: 14 mg Ondansetron HCl (Ondansetron Hcl 4 Mg/2 Ml Vial) 4 mg IVPUSH Q8H PRN PRN Reason: Nausea and Vomiting Last Admin: 10/29/24 11:09 Dose: 4 mg Oxycodone HCl (Oxycodone Hcl Immed Release 5 Mg Tablet) 5 mg PO Q3H PRN PRN Reason: Pain, Severe (Pain Scale 7-10) Last Admin: 09/07/24 12:12 Dose: 5 mg Pantoprazole Sodium (Pantoprazole Sodium 40 Mg/10 Ml Vial) 40 mg IVPUSH DAILY@0630 [facility] Last Admin: 09/07/24 06:38 Dose: 40 mg Psyllium Hydrophilic Mucilloid (Psyllium Seed 3.7 Gm Packet) 3.7 gm PO DAILY [facility] Last Admin: 09/07/24 07:54 Dose: Not Given Sodium Chloride (0.9 % Sodium Chloride Flush 3 Ml Syringe) 3 ml IVFLUSH QSHIFT [facility] Last Admin: 09/07/24 12:09 Dose: 3 ml Allergies Allergies Allergy/AdvReac Type Severity Reaction Status Date / Time No Known Allergies Allergy Verified 08/29/24 13:00 [No Known Allergies*] Assessment & Plan Assessment & Plan (1) Opioid use disorder, severe, dependence: Status: Acute Code(s): F11.20 - Opioid dependence, uncomplicated Assessment and Plan: continue cross titration last dose of methadone to be administered 09/09/24 suboxone dose to be titrated as needed mathematician research to coordinate outpatient clinic referral HIV and Hepatitis C screens ordered Total time managing care of this patient today _25___ minutes.
[2024-09-07 16:38] LABS: Glucose, Whole Blood 279 mg/dL (60-115)
--- NOTE | 2024-09-07 17:06 | PM.EVENT ---
Event Note Date of Service: 09/07/24 Event Note: I spoke with the patient for more than 15 minutes about staying in the hospital as he wants to leave AMA because we are refusing to let him smoke a cigarette. I explained to him the risks of leaving without a plan for Dialysis or for Suboxone. risk of wrosening disease and possible . it seems he agreed to stay for now. Discussed with Halina Lee. can start low dose Oxycodone as needed for his back pain as well Time Spent With Patient Time: Total time managing care of this patient today ____ minutes.
[2024-09-07] MEDS: ALPRAZolam 0.5 MG TABLET PO (17:43)
[2024-09-07 20:33] LABS: Glucose, Whole Blood 251 mg/dL (60-115)
[2024-09-07] MEDS: Lactulose 20 GM/30 ML SOLUTION PO (21:03)
[2024-09-07] MEDS: Docusate Sodium 100 MG CAPSULE PO (21:03)
[2024-09-08] VITALS (10 sets, daily range): BP systolic 103–123; BP diastolic 47–74; PULSE 87–95; RESP 17–20; TEMP 36.3–37.4; O2SAT 93–100
[2024-09-08] MEDS: Throat Lozenge, Medicated LOZENGE 1 LOZENGE MUCOUS MEM (03:42)
[2024-09-08] MEDS: oxyCODONE HCl Immed Release 5 MG TABLET PO ×2 (03:42→19:29)
[2024-09-08] MEDS: Albuterol/Iprat 2.5/0.5MG 3 ML AMPUL.NEB INHALE ×3 (04:23→19:58)
[2024-09-08] MEDS: Omeprazole 40 MG CAPSULE.DR PO (06:17)
[2024-09-08 07:25] LABS: Glucose, Whole Blood 346 mg/dL (60-115)
[2024-09-08] MEDS: Insulin Lispro 100 UNIT/ML 3 ML VIAL SUBCUT ×3 (08:06→21:41)
--- NOTE | 2024-09-08 08:15 | PM.PNNEP ---
Subjective Subjective Date of Service: 09/08/24 Interval history: 44 y/o male with a medical history of HTN, HLD, CKD3, polysubstance dependence, PVD. 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 He presented on 08/29 with weakness, abdominal bloating, lower extremity edema/pain. creatinine 6.79 on 08/29 (previous creatinine 2.02 from 1 year ago), started HD on 08/30; creatinine 09/03 is 3.38, 3.31 on 09/02 (ultrafiltration and removed 4kg on 09/02); BUN 63 09/03 potassium 3.8 09/03 sodium 129 08/29, 131 08/30, 133 08/31, 133 09/02, 131 09/03 serum bicarb 20 on 09/03 (down from 23 yesterday) urine prot/creat ratio 7.441 on 08/29; UPEP pending. No blood in urine from 08/29 CT abd/pelvis on 08/29 showed no hydronephrosis, kidneys/ureters unremarkable, showed diffuse anasarca and pulmonary edema. Liver unremarkable. TTE on 09/03 without obvious valvular pathology pt had right IJ trialysis catheter placed by IR 08/30, received HD 08/30, 08/31, 09/01, 09/03 plan for permacath placement 09/06 Patient today is alert and oriented states his breathing feels ok but seems to have worsened over weekend denies chest pain, abdominal pain, flank pain states swelling has continued to improve in abdomen, scrotum, lower extremities denies muscle cramping, tremors, jerking movements denies pruritus, nausea, vomiting pt is making urine (verde), 1150mL over last 24 hours Physical Exam Vital Signs: Vital Signs: Last Vital Signs Temp 97.6 F 09/08/24 07:01 Pulse 91 09/08/24 07:01 Resp 20 09/08/24 07:01 BP 123/60 09/08/24 07:01 Pulse Ox 95 09/08/24 07:01 O2 Del Method Room Air 09/08/24 07:01 O2 Flow Rate 2 08/30/24 02:00 BMI result Body Mass Index 39.8 Const: Other: Constitutional : Awake, interactive, not in distress Neck : Normal inspection, Supple Cardiovascular : RRR, no JVP, no lower extremity edema Respiratory : good bilateral air entry, no crackles, wheezes or rhonchi Gastrointestinal: soft, lax, Normal bowel sounds, Non tender Skin : Warm, Dry, multiple skin picking gabriel, BKA right, LLE callus with dry skin, Dialysis catheter in place , Urinary: scrotal swelling improving Neurological : Alert & oriented x3, No focal deficit Objective Data Labs 09/07/24 07:14 09/08/24 07:21 Labs: Laboratory Results - last 24 hr 09/07/24 09/07/24 09/07/24 15:01 16:34 20:29 Hold Purple Top Sodium Potassium Chloride Carbon Dioxide Anion Gap BUN Creatinine Estim Creat Clear Calc Estimated GFR POC Glucose 279 H 251 H Random Glucose Calcium Hepatitis C Ab (EIA) Reactive H HIV 1&2 Ab/P24 Ag 4thGn Nonreactive 09/08/24 09/08/24 07:14 07:21 Hold Purple Top SEE NOTE Sodium 134 L Potassium 3.5 Chloride 101 Carbon Dioxide 21 L Anion Gap 16 BUN 58 H Creatinine 4.12 H* Estim Creat Clear Calc 28.9 Estimated GFR 16 POC Glucose 346 H Random Glucose 340 H Calcium 7.4 L Hepatitis C Ab (EIA) HIV 1&2 Ab/P24 Ag 4thGn Microbiology Microbiology Results: Microbiology 08/29/24 14:03 Blood - Venous Blood Culture - Final No growth after 5 days. 08/29/24 14:03 Blood - Venous Blood Culture - Final No growth after 5 days. 08/29/24 Unknown Urine clean catch - Clean Catch Midstream Urine Culture - Final No growth. 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 for patient- he is aware of plan. He will start outpatient HD on Thursday 09/13 at [facility] at 10:45 a.m. permacath placed 09/07 H&H is low, likely related to CKD, 20,000 units procrit SQ injection administered yesterday ongoing metabolic acidosis potassium within normal limits Calcium 7.4, PTH 7.46. Calcitriol 0.25mg daily Phosphorous elevated at 5.5 (improving), calcium acetate 667mg x2 pills TID with meals patient remains fluid-overloaded, will remove 2-3L as tolerated with HD today Continue close monitoring of electrolytes, blood pressure, urine output Will continue to follow closely Discussed with Dr Cagle Time Spent With Patient Time: Total time managing care of this patient today ____ minutes. Progress Note: Quality Stroke Does the patient have a stroke diagnosis?: No
[2024-09-08 08:23] LABS: Anion Gap 16 (12-20); Blood Urea Nitrogen 58 mg/dL (9-16); Calcium 7.4 mg/dL (8.4-10.2); Carbon Dioxide 21 mmol/L (22-29); Chloride 101 mmol/L (96-108); Creatinine Clr Calc Pharmacy 28.9; Estimated Glomerular Filt Rate 16; Glucose Random 340 mg/dL (60-115); Potassium 3.5 mmol/L (3.3-5.1); Sodium 134 mmol/L (135-145)
[2024-09-08 08:51] LABS: HIV AB/AG Nonreactive (Nonreactive); HIV Num 1 0.59 S/CO (0.00-0.99); ~HepC Num1 1.64 S/CO (0.00-0.79); ~Hepatitis C Antibody Reactive (Nonreactive)
[2024-09-08] MEDS: Calcium Acetate 667 MG CAPSULE 1334 MG PO ×2 (09:15→17:37)
[2024-09-08] MEDS: methADONE HCl 20 MG/2 ML ORAL.CONC 50 MG PO (09:15)
[2024-09-08] MEDS: calcitrioL 0.25 MCG CAPSULE PO (09:15)
[2024-09-08] MEDS: Docusate Sodium 100 MG CAPSULE PO ×2 (09:15→19:29)
[2024-09-08] MEDS: Multivitamin TABLET 1 TAB PO (09:15)
[2024-09-08] MEDS: Buprenorphine/Naloxone 4/1 mg FILM 1 FILM SUBLINGUAL ×2 (09:15→17:37)
--- NOTE | 2024-09-08 12:32 | HO.PM.IMPN ---
Subjective Subjective Date of Service: 09/08/24 Interval History: No complaints Review of Systems Review of Systems: Yes all other systems are reviewed and are negative Physical Exam Vital Signs: Vital Signs: Last Vital Signs Temp 97.6 F 09/08/24 07:01 Pulse 91 09/08/24 07:01 Resp 20 09/08/24 07:01 BP 123/60 09/08/24 07:01 Pulse Ox 95 09/08/24 07:01 O2 Del Method Room Air 09/08/24 07:01 O2 Flow Rate 2 08/30/24 02:00 BMI result Body Mass Index 39.8 Const: Other: Constitutional : Awake, interactive, not in distress Neck : Normal inspection, Supple Cardiovascular : RRR, no JVP, no lower extremity edema Respiratory : good bilateral air entry, no crackles, wheezes or rhonchi Gastrointestinal: soft, lax, Normal bowel sounds, Non tender Skin : Warm, Dry, multiple skin picking gabriel, BKA right, LLE callus with dry skin, Dialysis catheter in place , Urinary: scrotal swelling improving Neurological : Alert & oriented x3, No focal deficit Objective Data Active Medications Acetaminophen (Acetaminophen 325 Mg Tablet) 975 mg PO Q6H PRN PRN Reason: Pain, Mild (Pain Scale 1-3), fever or headache Last Admin: 09/06/24 16:10 Dose: 975 mg Documented By: DYLAN Albuterol/Ipratropium (Albuterol/Iprat 2.5/0.5mg 3 Ml Ampul.Neb) 3 ml INHALE Q4H PRN PRN Reason: Shortness of Breath/Wheezing Last Admin: 09/08/24 04:23 Dose: 3 ml Documented By: LISSETTE Benzocaine (Throat Lozenge, Medicated Lozenge) 1 lozenge MUCOUS MEM Q2H PRN PRN Reason: Sore Throat Last Admin: 09/08/24 03:42 Dose: 1 lozenge Documented By: FLORY Buprenorphine/Naloxone (Buprenorphine/Naloxone 4/1 Mg Film) 1 film SUBLINGUAL BID@0800,1800 LYSSA Stop: 09/08/24 18:01 Last Admin: 09/08/24 09:15 Dose: 1 film Documented By: ERIK Buprenorphine/Naloxone (Buprenorphine/Naloxone 8/2 Mg Film) 1 film SUBLINGUAL ONCE ONE Stop: 09/09/24 08:01 Calcitriol (Calcitriol 0.25 Mcg Capsule) 0.25 mcg PO DAILY [facility] Last Admin: 09/08/24 09:15 Dose: 0.25 mcg Documented By: ERIK Calcium Acetate (Calcium Acetate 667 Mg Capsule) 1,334 mg PO TIDWM [facility] Last Admin: 09/08/24 09:15 Dose: 1,334 mg Documented By: ERIK Calcium Carbonate (Calcium Carbonate 750 Mg Tab.Chew) 750 mg PO Q4H PRN PRN Reason: Heartburn Last Admin: 09/05/24 19:43 Dose: 750 mg Documented By: VALENTINE Docusate Sodium (Docusate Sodium 100 Mg Capsule) 100 mg PO BID [facility] Last Admin: 09/08/24 09:15 Dose: 100 mg Documented By: ERIK Glucose (Glucose Gel 15 Gm Gel..Gram.) 15 gm PO Q15M PRN; Protocol PRN Reason: per Hypoglycemia Standing Ord. Guaifenesin/Codeine Phosphate (Guaifen/Codeine Sf 200/20/10ml 10 Ml Liquid) 5 ml PO Q6H PRN PRN Reason: Cough Last Admin: 09/06/24 21:58 Dose: 5 ml Documented By: VALENTINE Heparin Sodium (Porcine) (Heparin Sodium,Porcine 5,000 Unit/Ml Vial) 5,000 unit SUBCUT Q12H [facility] Last Admin: 09/05/24 12:31 Dose: 5,000 unit Documented By: ROSCOE Heparin Sodium (Porcine) (Heparin Sodium,Porcine 5,000 Unit/Ml Vial) 5,000 unit INTRACATH MOWEFR@1645 [facility] Dextrose (D10) 250 mls @ 750 mls/hr IV Q15M PRN; Protocol PRN Reason: per Hypoglycemia Standing Ord. Insulin Human Lispro (Insulin Lispro 100 Unit/Ml 3 Ml Vial) 0 unit SUBCUT QIDACHS [facility]; Protocol Last Admin: 09/08/24 08:06 Dose: 8 unit Documented By: ERIK Lactulose (Lactulose 20 Gm/30 Ml Solution) 20 gm PO BID [facility] Last Admin: 09/08/24 10:14 Dose: Not Given Documented By: ERIK Non-Admin Reason: Off unit: Dialysis Melatonin (Melatonin 3 Mg Tablet) 6 mg PO BEDTIME PRN PRN Reason: Insomnia Last Admin: 09/06/24 21:58 Dose: 6 mg Documented By: VALENTINE Methadone HCl (Methadone Hcl 20 Mg/2 Ml Oral.Conc) 50 mg PO DAILY@0900 [facility] Last Admin: 09/08/24 09:15 Dose: 50 mg Documented By: ERIK Co-signed By: DUNCAN Methocarbamol (Methocarbamol 500 Mg Tablet) 500 mg PO TID PRN PRN Reason: Muscle Spasm Last Admin: 09/06/24 21:58 Dose: 500 mg Documented By: VALENTINE Multivitamins/Vitamin C (Multivitamin Tablet) 1 tab PO DAILY [facility] Last Admin: 09/08/24 09:15 Dose: 1 tab Documented By: ERIK Nicotine (Nicotine 14 Mg Patch.Td24) 14 mg TRANSDERMA DAILY [facility] Last Admin: 09/07/24 07:52 Dose: 14 mg Documented By: ERIK Nicotine Polacrilex (Nicotine Polacrilex 2 Mg Gum) 2 mg BUCCAL Q1H PRN PRN Reason: Nicotine Cravings Omeprazole (Omeprazole 40 Mg Capsule.Dr) 40 mg PO DAILY@0630 [facility] Last Admin: 09/08/24 06:17 Dose: 40 mg Documented By: FLORY Ondansetron HCl (Ondansetron Hcl 4 Mg/2 Ml Vial) 4 mg IVPUSH Q8H PRN PRN Reason: Nausea and Vomiting Last Admin: 08/31/24 11:09 Dose: 4 mg Documented By: DENNY Oxycodone HCl (Oxycodone Hcl Immed Release 5 Mg Tablet) 5 mg PO Q4H PRN PRN Reason: Pain, Severe (Pain Scale 7-10) Last Admin: 09/08/24 03:42 Dose: 5 mg Documented By: FLORY Psyllium Hydrophilic Mucilloid (Psyllium Seed 3.7 Gm Packet) 3.7 gm PO DAILY [facility] Last Admin: 09/08/24 10:14 Dose: Not Given Documented By: ERIK Non-Admin Reason: Off unit: Dialysis Sodium Chloride (0.9 % Sodium Chloride Flush 3 Ml Syringe) 3 ml IVFLUSH QSHIFT [facility] Last Admin: 09/08/24 10:14 Dose: Not Given Documented By: ERIK Non-Admin Reason: Off unit: Dialysis Labs 09/07/24 07:14 09/08/24 07:21 Labs: Laboratory Results - last 24 hr 09/07/24 09/07/24 09/07/24 15:01 16:34 20:29 Hold Purple Top Anion Gap Estim Creat Clear Calc Estimated GFR POC Glucose 279 H 251 H Random Glucose Calcium Hepatitis C Ab (EIA) Reactive H HIV 1&2 Ab/P24 Ag 4thGn Nonreactive 09/08/24 09/08/24 07:14 07:21 Hold Purple Top SEE NOTE Anion Gap 16 Estim Creat Clear Calc 28.9 Estimated GFR 16 POC Glucose 346 H Random Glucose 340 H Calcium 7.4 L Hepatitis C Ab (EIA) HIV 1&2 Ab/P24 Ag 4thGn Assessment and Plan (1) Acute renal failure: Status: Acute (2) Anemia: Status: Acute Plan 44M PMH hypertension, hyperlipidemia, diabetes, CKD 3, polysubstance dependence, history of peripheral vascular disease presented with weakness found to have angelo, anemia, leukocysotis, acidosis acute metabolic encephalopathy due to uremic encephalopathy due to ANGELO on CKD 3 complicated by acute metabolic acidosis, mentation improved back to baseline catheter placement 08/30/24 and started dialysis Now with tunneled catheter Elevated IgG, IGA, normal compliment level and PR3, MP Nephrology input appreciated, will need outpatient HD spot Acute on chronic anemia with Leukocytosis WBC down to 21k likely leukomoid tosha Hb improved to 7.6 after 4 units transfusion hematology input appreciated, BCR-ABL gene ? Give Epogen with HD given Acute hypocalcemia corrected at 7.9 replacement given Elevated PTH, start Calcitriol Hx drug abuse U.Tox +ve for Cocaine, Opiates, Fentanyl and Oxy Addiciton team following Methadone started Diabetes II Insulin sliding scale Hypertension Hold BP meds for now Scrotal swelling secondary to fluid overload support, dialysis, monitor DVT prophylaxis start Heparin SC Full code reason for continued hospitalization: Placement Quality Stroke Does the patient have a stroke diagnosis?: No VTE Prior VTE?: No VTE Risk Level:: Medical - moderate - high VTE Device Contraindication: N/A - Device Ordered VTE Drug Contraindication: Treatment Not Indicated
--- NOTE | 2024-09-08 12:59 | MHC.CM.PN ---
Addendum entered by Suri Garcia RN 09/08/24 13:55: PER NEPHRO PT CAN START OUTPT HD AT [facility] THURSDAY 09/13 Original Note: EMR REVIEWED, PT HAD HD PERMACATH PLACED YESTERDAY, PT WILL NEED OUTPT HD AND [facility] CLINIC ON DC, PT HAS NO STR BED OFFERS/INTEREST AT THIS TIME, CM WILL CONT TO FOLLOW DC NEEDS.
[2024-09-08 13:17] LABS: Glucose, Whole Blood 152 mg/dL (60-115)
[2024-09-08] MEDS: Nicotine 14 MG PATCH.TD24 TRANSDERMA (14:05)
--- NOTE | 2024-09-08 14:05 | MHC.RECOVRN ---
Met with pt in 461 to follow up regarding methadone to bupe transition. Pt laying in bed, awake, alert, easily engages in conversation. Reports things are going good and denies concerns regarding the transition. Pt does report he no longer wishes to go to [facility] and would like to further discuss with appropriate staff. Discussed outpatient Suboxone follow up, pt would like to continue care with the [facility]. Denies other questions or concerns for t/w. Discussed with Catina Cantu APRN. CM and provider notified via TT pt would like to speak to someone regarding dc planning/STR.
[2024-09-08] MEDS: Nicotine Polacrilex 2 MG GUM BUCCAL (14:06)
[2024-09-08] MEDS: methocarbamoL 500 MG TABLET PO (15:23)
[2024-09-08 16:31] LABS: Glucose, Whole Blood 216 mg/dL (60-115)
[2024-09-08] MEDS: Lactulose 20 GM/30 ML SOLUTION PO (19:29)
[2024-09-08] MEDS: 0.9 % Sodium Chloride Flush 3 ML SYRINGE IVFLUSH (19:32)
[2024-09-08 20:48] LABS: Glucose, Whole Blood 222 mg/dL (60-115)
[2024-09-09] VITALS (8 sets, daily range): BP systolic 119–138; BP diastolic 57–83; PULSE 81–96; RESP 19–23; TEMP 36.6–37.3; O2SAT 92–97
[2024-09-09] MEDS: oxyCODONE HCl Immed Release 5 MG TABLET PO ×3 (05:30→20:16)
[2024-09-09] MEDS: Omeprazole 40 MG CAPSULE.DR PO (05:30)
[2024-09-09 07:15] LABS: Glucose, Whole Blood 167 mg/dL (60-115)
[2024-09-09] MEDS: Buprenorphine/Naloxone 8/2 mg FILM 1 FILM SUBLINGUAL (08:02)
[2024-09-09] MEDS: Calcium Acetate 667 MG CAPSULE 1334 MG PO ×3 (08:03→17:52)
[2024-09-09] MEDS: Insulin Lispro 100 UNIT/ML 3 ML VIAL SUBCUT ×3 (08:03→21:02)
[2024-09-09] MEDS: methADONE HCl 20 MG/2 ML ORAL.CONC 50 MG PO (08:03)
[2024-09-09] MEDS: Psyllium seed 3.7 GM PACKET PO (08:03)
[2024-09-09] MEDS: calcitrioL 0.25 MCG CAPSULE PO (08:04)
[2024-09-09] MEDS: 0.9 % Sodium Chloride Flush 3 ML SYRINGE IVFLUSH ×3 (08:04→20:16)
[2024-09-09] MEDS: Docusate Sodium 100 MG CAPSULE PO ×2 (08:06→20:16)
[2024-09-09] MEDS: Nicotine 14 MG PATCH.TD24 TRANSDERMA (08:12)
[2024-09-09] MEDS: Multivitamin TABLET 1 TAB PO (08:17)
[2024-09-09] MEDS: Lactulose 20 GM/30 ML SOLUTION PO ×2 (08:22→20:16)
--- NOTE | 2024-09-09 09:51 | P.PNNP_ITS ---
Subjective Subjective Date of Service: 09/09/24 Interval history: 44 y/o male with a medical history of HTN, HLD, CKD3, polysubstance dependence, PVD. 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 He presented on 08/29 with weakness, abdominal bloating, lower extremity edema/pain. creatinine 6.79 on 08/29 (previous creatinine 2.02 from 1 year ago), started HD on 08/30; creatinine 09/03 is 3.38; creatinine now ranging between 3.16 and 5.76 with intermittent HD GFR ranging from 14-21 over last week urine prot/creat ratio 7.441 on 08/29. No blood in urine from 08/29 CT abd/pelvis on 08/29 showed no hydronephrosis, kidneys/ureters unremarkable, showed diffuse anasarca and pulmonary edema. Liver unremarkable. TTE on 09/03 without obvious valvular pathology patient has permacath (right IJ) in place plan to start outpatient dialysis on Friday, 09/13, at [facility], start time 10:45 Patient today is alert and oriented states his breathing feels comfortable denies chest pain, abdominal pain, flank pain states swelling feels minimal/ stable in abdomen, scrotum, lower extremities denies muscle cramping, tremors, jerking movements denies pruritus, nausea, vomiting pt is making urine (verde), 925mL over last 24 hours Physical Exam 2 Vital Signs: Vital Signs: Last Vital Signs Temp 98.2 F 09/09/24 07:27 Pulse 81 09/09/24 09:40 Resp 20 09/09/24 07:27 BP 119/66 09/09/24 09:40 Pulse Ox 97 09/09/24 09:40 O2 Del Method Room Air 09/09/24 07:27 O2 Flow Rate 2 08/30/24 02:00 BMI result Body Mass Index 39.8 Const: Other: Constitutional : Awake, interactive, not in distress Neck : Normal inspection, Supple Cardiovascular : RRR, no JVP, no lower extremity edema Respiratory : good bilateral air entry, no crackles, wheezes or rhonchi Gastrointestinal: soft, lax, Normal bowel sounds, Non tender Skin : Warm, Dry, multiple skin picking gabriel, BKA right, LLE callus with dry skin, Dialysis catheter in place , Urinary: scrotal swelling improving Neurological : Alert & oriented x3, No focal deficit Objective Data Labs 09/07/24 07:14 09/08/24 07:21 Labs: Laboratory Results - last 24 hr 09/08/24 09/08/24 09/08/24 13:13 16:27 20:41 POC Glucose 152 H 216 H 222 H 09/09/24 07:11 POC Glucose 167 H Microbiology Microbiology Results: Microbiology 08/29/24 14:03 Blood - Venous Blood Culture - Final No growth after 5 days. 08/29/24 14:03 Blood - Venous Blood Culture - Final No growth after 5 days. 08/29/24 Unknown Urine clean catch - Clean Catch Midstream Urine Culture - Final No growth. 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 Calcitriol 0.25mg daily Phosphorous elevated at 5.5 (improving), calcium acetate 667mg x2 pills TID with meals patient remains fluid-overloaded, will remove 2-3L as tolerated with HD (Mon, Wed, Fri) Continue close monitoring of electrolytes, blood pressure, urine output Will continue to follow Discussed with Dr Cagle Time Spent With Patient Time: Total time managing care of this patient today ____ minutes. Progress Note: Quality Stroke Does the patient have a stroke diagnosis?: No
--- NOTE | 2024-09-09 10:20 | HO.PM.IMPN ---
Subjective Subjective Date of Service: 09/09/24 Interval History: No complaints Review of Systems Review of Systems: Yes all other systems are reviewed and are negative Physical Exam Vital Signs: Vital Signs: Last Vital Signs Temp 98.2 F 09/09/24 07:27 Pulse 81 09/09/24 09:40 Resp 20 09/09/24 07:27 BP 119/66 09/09/24 09:40 Pulse Ox 97 09/09/24 09:40 O2 Del Method Room Air 09/09/24 07:27 O2 Flow Rate 2 08/30/24 02:00 BMI result Body Mass Index 39.8 Const: Other: Constitutional : Awake, interactive, not in distress Neck : Normal inspection, Supple Cardiovascular : RRR, no JVP, no lower extremity edema Respiratory : good bilateral air entry, no crackles, wheezes or rhonchi Gastrointestinal: soft, lax, Normal bowel sounds, Non tender Skin : Warm, Dry, multiple skin picking gabriel, BKA right, LLE callus with dry skin, Dialysis catheter in place , Urinary: scrotal swelling improving Neurological : Alert & oriented x3, No focal deficit Objective Data Active Medications Acetaminophen (Acetaminophen 325 Mg Tablet) 975 mg PO Q6H PRN PRN Reason: Pain, Mild (Pain Scale 1-3), fever or headache Last Admin: 09/06/24 16:10 Dose: 975 mg Documented By: DYLAN Albuterol/Ipratropium (Albuterol/Iprat 2.5/0.5mg 3 Ml Ampul.Neb) 3 ml INHALE Q4H PRN PRN Reason: Shortness of Breath/Wheezing Last Admin: 09/08/24 19:58 Dose: 3 ml Documented By: DUKE Benzocaine (Throat Lozenge, Medicated Lozenge) 1 lozenge MUCOUS MEM Q2H PRN PRN Reason: Sore Throat Last Admin: 09/08/24 03:42 Dose: 1 lozenge Documented By: FLORY Calcitriol (Calcitriol 0.25 Mcg Capsule) 0.25 mcg PO DAILY [facility] Last Admin: 09/09/24 08:04 Dose: 0.25 mcg Documented By: KAYLA Calcium Acetate (Calcium Acetate 667 Mg Capsule) 1,334 mg PO TIDWM [facility] Last Admin: 09/09/24 08:03 Dose: 1,334 mg Documented By: KAYLA Calcium Carbonate (Calcium Carbonate 750 Mg Tab.Chew) 750 mg PO Q4H PRN PRN Reason: Heartburn Last Admin: 09/05/24 19:43 Dose: 750 mg Documented By: VALENTINE Docusate Sodium (Docusate Sodium 100 Mg Capsule) 100 mg PO BID [facility] Last Admin: 09/09/24 08:06 Dose: 100 mg Documented By: KAYLA Glucose (Glucose Gel 15 Gm Gel..Gram.) 15 gm PO Q15M PRN; Protocol PRN Reason: per Hypoglycemia Standing Ord. Guaifenesin/Codeine Phosphate (Guaifen/Codeine Sf 200/20/10ml 10 Ml Liquid) 5 ml PO Q6H PRN PRN Reason: Cough Last Admin: 09/06/24 21:58 Dose: 5 ml Documented By: VALENTINE Heparin Sodium (Porcine) (Heparin Sodium,Porcine 5,000 Unit/Ml Vial) 5,000 unit SUBCUT Q12H [facility] Last Admin: 09/05/24 12:31 Dose: 5,000 unit Documented By: ROSCOE Heparin Sodium (Porcine) (Heparin Sodium,Porcine 5,000 Unit/Ml Vial) 5,000 unit INTRACATH MOWEFR@1645 [facility] Last Admin: 09/08/24 18:20 Dose: Not Given Documented By: ERIK Non-Admin Reason: diaysis med Dextrose (D10) 250 mls @ 750 mls/hr IV Q15M PRN; Protocol PRN Reason: per Hypoglycemia Standing Ord. Insulin Human Lispro (Insulin Lispro 100 Unit/Ml 3 Ml Vial) 0 unit SUBCUT QIDACHS [facility]; Protocol Last Admin: 09/09/24 08:03 Dose: 2 unit Documented By: KAYLA Lactulose (Lactulose 20 Gm/30 Ml Solution) 20 gm PO BID [facility] Last Admin: 09/09/24 08:22 Dose: 20 gm Documented By: KAYLA Melatonin (Melatonin 3 Mg Tablet) 6 mg PO BEDTIME PRN PRN Reason: Insomnia Last Admin: 09/06/24 21:58 Dose: 6 mg Documented By: VALENTINE Methocarbamol (Methocarbamol 500 Mg Tablet) 500 mg PO TID PRN PRN Reason: Muscle Spasm Last Admin: 09/08/24 15:23 Dose: 500 mg Documented By: ERIK Multivitamins/Vitamin C (Multivitamin Tablet) 1 tab PO DAILY [facility] Last Admin: 09/09/24 08:17 Dose: 1 tab Documented By: KAYLA Nicotine (Nicotine 14 Mg Patch.Td24) 14 mg TRANSDERMA DAILY [facility] Last Admin: 09/09/24 08:12 Dose: 14 mg Documented By: KAYLA Nicotine Polacrilex (Nicotine Polacrilex 2 Mg Gum) 2 mg BUCCAL Q1H PRN PRN Reason: Nicotine Cravings Last Admin: 09/08/24 14:06 Dose: 2 mg Documented By: ERIK Omeprazole (Omeprazole 40 Mg Capsule.Dr) 40 mg PO DAILY@0630 [facility] Last Admin: 09/09/24 05:30 Dose: 40 mg Documented By: DANIELLE Ondansetron HCl (Ondansetron Hcl 4 Mg/2 Ml Vial) 4 mg IVPUSH Q8H PRN PRN Reason: Nausea and Vomiting Last Admin: 08/31/24 11:09 Dose: 4 mg Documented By: DENNY Oxycodone HCl (Oxycodone Hcl Immed Release 5 Mg Tablet) 5 mg PO Q4H PRN PRN Reason: Pain, Severe (Pain Scale 7-10) Last Admin: 09/09/24 05:30 Dose: 5 mg Documented By: DANIELLE Psyllium Hydrophilic Mucilloid (Psyllium Seed 3.7 Gm Packet) 3.7 gm PO DAILY [facility] Last Admin: 09/09/24 08:03 Dose: 3.7 gm Documented By: KAYLA Sodium Chloride (0.9 % Sodium Chloride Flush 3 Ml Syringe) 3 ml IVFLUSH QSHIFT [facility] Last Admin: 09/09/24 08:04 Dose: 3 ml Documented By: KAYLA Labs 09/07/24 07:14 09/08/24 07:21 Labs: Laboratory Results - last 24 hr 09/08/24 09/08/24 09/08/24 13:13 16:27 20:41 POC Glucose 152 H 216 H 222 H 09/09/24 07:11 POC Glucose 167 H Assessment and Plan (1) Acute renal failure: Status: Acute (2) Anemia: Status: Acute Plan 44M PMH hypertension, hyperlipidemia, diabetes, CKD 3, polysubstance dependence, history of peripheral vascular disease presented with weakness found to have angelo, anemia, leukocysotis, acidosis acute metabolic encephalopathy due to uremic encephalopathy due to ANGELO on CKD 3 complicated by acute metabolic acidosis, mentation improved back to baseline catheter placement 08/30/24 and started dialysis Now with tunneled catheter Elevated IgG, IGA, normal compliment level and PR3, MP, negative spep, upep, significant proteinuria eventual biopsy Acute on chronic anemia with Leukocytosis WBC down to 21k likely leukomoid tosha Hb improved after 4 units transfusion hematology input appreciated, BCR-ABL gene negative Given Epogen with HD given Acute hypocalcemia corrected at 7.9 replacement given Elevated PTH, start Calcitriol Hx drug abuse U.Tox +ve for Cocaine, Opiates, Fentanyl and Oxy Addiciton team following Methadone started Diabetes II Insulin sliding scale Hypertension Hold BP meds for now Scrotal swelling secondary to fluid overload support, dialysis, monitor DVT prophylaxis start Heparin SC Full code reason for continued hospitalization: Placement Quality Stroke Does the patient have a stroke diagnosis?: No VTE Prior VTE?: No VTE Risk Level:: Medical - moderate - high VTE Device Contraindication: N/A - Device Ordered VTE Drug Contraindication: Treatment Not Indicated
[2024-09-09 10:42] LABS: Hematocrit 25.7 % (42.0-52.0); Mean Corpuscular HGB Conc 31.1 g/dl (31.0-36.0); Mean Corpuscular Hemoglobin 29.2 pg (27.0-33.0); Mean Corpuscular Volume 93.8 fL (80.0-98.0); Mean Platelet Volume 11.3 fL (9.4-12.4); Platelet Count 321 X10*3/uL (160-400); Red Blood Count 2.74 X10*6/uL (4.60-5.80); Red Cell Distribution Width 17.7 % (11.0-16.0); White Blood Count 18.2 X10*3/uL (4.8-10.8)
[2024-09-09 10:53] LABS: Phosphorus 5.2 mg/dL (2.7-4.5)
[2024-09-09 11:17] LABS: Glucose, Whole Blood 179 mg/dL (60-115)
--- NOTE | 2024-09-09 12:46 | MHC.CM.PN ---
EMR REVIEWED, PT IN NEED OF STR, HD AND SUBOXONE, PT HAD LAST DOSE OF METHADONE TODAY, REFERRAL UPDATED AND EXPANDED TO ALL FACILITIES W/HD [place]CROSS [place] PT HAS MH, NO BED OFFERS AT THIS TIME, CM WILL CONT TO FOLLOW DC NEEDS.
[2024-09-09] MEDS: Albuterol/Iprat 2.5/0.5MG 3 ML AMPUL.NEB INHALE (14:13)
[2024-09-09 15:45] LABS: Glucose, Whole Blood 351 mg/dL (60-115)
--- NOTE | 2024-09-09 16:09 | HO.ADDICTPRO ---
Subjective Subjective Date of Service: 09/09/24 Reason For Visit: angelo Interim History: Patient seen in follow up Today was last day of methadone Suboxone 8mg this morning reporting intermittent anxiety was considering discharging home despite recommendation for STR mother and other family member in the room encouraging patient to go to STR allowed patient to share concerns/worries with STR, which included having his own things, and just being away from home Review of Systems Constitutional: Reports as per HPI Mental Status Exam Mental Status Exam Level of Consciousness: Awake, Appropriate and Alert Patient Behavior: Appropriate Mood Description: Appropriate and Anxious Affect Description: Appropriate and Anxious Diagnostics Vital Signs (24Hr): Vital Signs - 24 hr 09/08/24 19:20 09/08/24 19:58 09/08/24 23:39 Temperature 98.5 F 97.4 F Pulse Rate 89 94 93 Respiratory Rate 19 19 18 Blood Pressure 122/63 116/74 Pulse Oximetry 98 93 Oxygen Delivery Method Room Air Room Air 09/09/24 03:49 09/09/24 07:27 09/09/24 09:40 Temperature 98.8 F 98.2 F Pulse Rate 94 81 81 Respiratory Rate 19 20 Blood Pressure 127/74 119/66 119/66 Pulse Oximetry 92 97 97 Oxygen Delivery Method Room Air Room Air 09/09/24 11:29 09/09/24 14:13 09/09/24 15:37 Temperature 97.9 F 99.1 F Pulse Rate 83 93 95 Respiratory Rate 20 23 H Blood Pressure 124/57 L 136/57 L Pulse Oximetry 95 97 Oxygen Delivery Method Room Air Room Air BMI result Body Mass Index 39.8 Labs 09/09/24 10:36 09/10/24 09:20 Labs: Laboratory Results - last 48 hr 09/07/24 09/07/24 09/07/24 15:01 16:34 20:29 WBC RBC Hgb Hct MCV MCH MCHC RDW Plt Count MPV Absolute Nucleated RBC Nucleated RBC % (auto) Hold Purple Top Sodium Potassium Chloride Carbon Dioxide Anion Gap BUN Creatinine Estim Creat Clear Calc Estimated GFR POC Glucose 279 H 251 H Random Glucose Calcium Phosphorus Hepatitis C Ab (EIA) Reactive H HIV 1&2 Ab/P24 Ag 4thGn Nonreactive 09/08/24 09/08/24 09/08/24 07:14 07:21 13:13 WBC RBC Hgb Hct MCV MCH MCHC RDW Plt Count MPV Absolute Nucleated RBC Nucleated RBC % (auto) Hold Purple Top SEE NOTE Sodium 134 L Potassium 3.5 Chloride 101 Carbon Dioxide 21 L Anion Gap 16 BUN 58 H Creatinine 4.12 H* Estim Creat Clear Calc 28.9 Estimated GFR 16 POC Glucose 346 H 152 H Random Glucose 340 H Calcium 7.4 L Phosphorus Hepatitis C Ab (EIA) HIV 1&2 Ab/P24 Ag 4thGn 09/08/24 09/08/24 09/09/24 16:27 20:41 07:11 WBC RBC Hgb Hct MCV MCH MCHC RDW Plt Count MPV Absolute Nucleated RBC Nucleated RBC % (auto) Hold Purple Top Sodium Potassium Chloride Carbon Dioxide Anion Gap BUN Creatinine Estim Creat Clear Calc Estimated GFR POC Glucose 216 H 222 H 167 H Random Glucose Calcium Phosphorus Hepatitis C Ab (EIA) HIV 1&2 Ab/P24 Ag 4thGn 09/09/24 09/09/24 09/09/24 10:36 11:09 15:42 WBC 18.2 H RBC 2.74 L Hgb 8.0 L Hct 25.7 L MCV 93.8 MCH 29.2 MCHC 31.1 RDW 17.7 H Plt Count 321 MPV 11.3 Absolute Nucleated RBC 0.000 Nucleated RBC % (auto) 0.0 Hold Purple Top Sodium Potassium Chloride Carbon Dioxide Anion Gap BUN Creatinine Estim Creat Clear Calc Estimated GFR POC Glucose 179 H 351 H* Random Glucose Calcium Phosphorus 5.2 H Hepatitis C Ab (EIA) HIV 1&2 Ab/P24 Ag 4thGn Imaging Radiology Impressions: ITS Impressions KUB X-Ray 08/29/24 13:25 IMPRESSION: 1. Prominent fecal loading of the ascending colon greatest along its proximal segment measuring up to 10.8 cm. 2. There is air-filled dilatation of the remaining colon measuring up to 8.4 cm. Electronically signed by: Angeles Galeas MD 08/29/2024 01:41 PM EDT RP Chest X-Ray 08/29/24 13:54 IMPRESSION: 1. Bronchial thickening suggesting infectious/inflammatory etiology. 2. Elevation right hemidiaphragm. 3. Left basilar atelectasis. Electronically signed by: Angeles Galeas MD 08/29/2024 03:07 PM EDT RP Abdomen/Pelvis CT 08/29/24 15:18 IMPRESSION: 1. No hydronephrosis. 2. Partially visualized patchy opacities in bilateral lung bases which may represent edema or infection. 3. Diffuse anasarca. Fleischner guidelines were followed. Electronically signed by: Mike Galan MD 08/29/2024 03:39 PM EDT Medications Medications Current Medications Acetaminophen (Acetaminophen 325 Mg Tablet) 975 mg PO Q6H PRN PRN Reason: Pain, Mild (Pain Scale 1-3), fever or headache Last Admin: 09/06/24 16:10 Dose: 975 mg Albuterol/Ipratropium (Albuterol/Iprat 2.5/0.5mg 3 Ml Ampul.Neb) 3 ml INHALE Q4H PRN PRN Reason: Shortness of Breath/Wheezing Last Admin: 09/09/24 14:13 Dose: 3 ml Benzocaine (Throat Lozenge, Medicated Lozenge) 1 lozenge MUCOUS MEM Q2H PRN PRN Reason: Sore Throat Last Admin: 09/08/24 03:42 Dose: 1 lozenge Buprenorphine/Naloxone (Buprenorphine/Naloxone 12/3 Mg Film) 1 film SUBLINGUAL BID@0800,1700 [facility] Calcitriol (Calcitriol 0.25 Mcg Capsule) 0.25 mcg PO DAILY [facility] Last Admin: 09/09/24 08:04 Dose: 0.25 mcg Calcium Acetate (Calcium Acetate 667 Mg Capsule) 1,334 mg PO TIDWM [facility] Last Admin: 09/09/24 14:35 Dose: 1,334 mg Calcium Carbonate (Calcium Carbonate 750 Mg Tab.Chew) 750 mg PO Q4H PRN PRN Reason: Heartburn Last Admin: 09/05/24 19:43 Dose: 750 mg Clonidine HCl (Clonidine Hcl 0.1 Mg Tablet) 0.1 mg PO BID@1200,2000 [facility]; Protocol Docusate Sodium (Docusate Sodium 100 Mg Capsule) 100 mg PO BID [facility] Last Admin: 09/09/24 08:06 Dose: 100 mg Glucose (Glucose Gel 15 Gm Gel..Gram.) 15 gm PO Q15M PRN; Protocol PRN Reason: per Hypoglycemia Standing Ord. Guaifenesin/Codeine Phosphate (Guaifen/Codeine Sf 200/20/10ml 10 Ml Liquid) 5 ml PO Q6H PRN PRN Reason: Cough Last Admin: 09/06/24 21:58 Dose: 5 ml Heparin Sodium (Porcine) (Heparin Sodium,Porcine 5,000 Unit/Ml Vial) 5,000 unit SUBCUT Q12H [facility] Last Admin: 09/05/24 12:31 Dose: 5,000 unit Heparin Sodium (Porcine) (Heparin Sodium,Porcine 5,000 Unit/Ml Vial) 5,000 unit INTRACATH MOWEFR@1645 [facility] Last Admin: 09/08/24 18:20 Dose: Not Given Dextrose (D10) 250 mls @ 750 mls/hr IV Q15M PRN; Protocol PRN Reason: per Hypoglycemia Standing Ord. Insulin Human Lispro (Insulin Lispro 100 Unit/Ml 3 Ml Vial) 0 unit SUBCUT QIDACHS [facility]; Protocol Last Admin: 09/09/24 08:03 Dose: 2 unit Lactulose (Lactulose 20 Gm/30 Ml Solution) 20 gm PO BID [facility] Last Admin: 09/09/24 08:22 Dose: 20 gm Melatonin (Melatonin 3 Mg Tablet) 6 mg PO BEDTIME PRN PRN Reason: Insomnia Last Admin: 09/06/24 21:58 Dose: 6 mg Methocarbamol (Methocarbamol 500 Mg Tablet) 500 mg PO TID PRN PRN Reason: Muscle Spasm Last Admin: 09/08/24 15:23 Dose: 500 mg Multivitamins/Vitamin C (Multivitamin Tablet) 1 tab PO DAILY [facility] Last Admin: 09/09/24 08:17 Dose: 1 tab Nicotine (Nicotine 14 Mg Patch.Td24) 14 mg TRANSDERMA DAILY [facility] Last Admin: 09/09/24 08:12 Dose: 14 mg Nicotine Polacrilex (Nicotine Polacrilex 2 Mg Gum) 2 mg BUCCAL Q1H PRN PRN Reason: Nicotine Cravings Last Admin: 09/08/24 14:06 Dose: 2 mg Omeprazole (Omeprazole 40 Mg Capsule.Dr) 40 mg PO DAILY@0630 [facility] Last Admin: 09/09/24 05:30 Dose: 40 mg Ondansetron HCl (Ondansetron Hcl 4 Mg/2 Ml Vial) 4 mg IVPUSH Q8H PRN PRN Reason: Nausea and Vomiting Last Admin: 08/31/24 11:09 Dose: 4 mg Oxycodone HCl (Oxycodone Hcl Immed Release 5 Mg Tablet) 5 mg PO Q4H PRN PRN Reason: Pain, Severe (Pain Scale 7-10) Last Admin: 09/09/24 14:35 Dose: 5 mg Psyllium Hydrophilic Mucilloid (Psyllium Seed 3.7 Gm Packet) 3.7 gm PO DAILY [facility] Last Admin: 09/09/24 08:03 Dose: 3.7 gm Sodium Chloride (0.9 % Sodium Chloride Flush 3 Ml Syringe) 3 ml IVFLUSH QSHIFT [facility] Last Admin: 09/09/24 08:04 Dose: 3 ml Allergies Allergies Allergy/AdvReac Type Severity Reaction Status Date / Time No Known Allergies Allergy Verified 08/29/24 13:00 [No Known Allergies*] Assessment & Plan Assessment & Plan (1) Opioid use disorder, severe, dependence: Status: Acute Code(s): F11.20 - Opioid dependence, uncomplicated Assessment and Plan: suboxone 12mg BID starting in AM will continue to follow Plan Total time managing care of this patient today ____ minutes.
[2024-09-09] MEDS: methocarbamoL 500 MG TABLET PO (17:52)
[2024-09-09 20:12] LABS: Glucose, Whole Blood 263 mg/dL (60-115)
[2024-09-09] MEDS: cloNIDine HCL 0.1 MG TABLET PO (20:16)
[2024-09-10] VITALS (9 sets, daily range): BP systolic 100–140; BP diastolic 57–72; PULSE 83–93; RESP 18–22; TEMP 36.3–37.1; O2SAT 93–100
[2024-09-10] MEDS: oxyCODONE HCl Immed Release 5 MG TABLET PO ×2 (04:32→19:55)
[2024-09-10] MEDS: Omeprazole 40 MG CAPSULE.DR PO (04:32)
[2024-09-10] MEDS: Albuterol/Iprat 2.5/0.5MG 3 ML AMPUL.NEB INHALE ×2 (06:35→19:00)
[2024-09-10] MEDS: Docusate Sodium 100 MG CAPSULE PO ×2 (08:00→19:55)
[2024-09-10] MEDS: calcitrioL 0.25 MCG CAPSULE PO (08:00)
[2024-09-10] MEDS: Buprenorphine/Naloxone 12/3 mg FILM 1 FILM SUBLINGUAL (08:00)
[2024-09-10] MEDS: Nicotine 14 MG PATCH.TD24 TRANSDERMA (08:00)
[2024-09-10] MEDS: Calcium Acetate 667 MG CAPSULE 1334 MG PO ×3 (08:00→17:24)
[2024-09-10] MEDS: Multivitamin TABLET 1 TAB PO (08:00)
[2024-09-10 08:01] LABS: Glucose, Whole Blood 182 mg/dL (60-115)
[2024-09-10] MEDS: 0.9 % Sodium Chloride Flush 3 ML SYRINGE IVFLUSH ×2 (08:01→17:20)
[2024-09-10] MEDS: Psyllium seed 3.7 GM PACKET PO (08:01)
[2024-09-10] MEDS: Insulin Lispro 100 UNIT/ML 3 ML VIAL SUBCUT ×2 (09:00→13:31)
[2024-09-10 10:12] LABS: Creatinine Clr Calc Pharmacy 27.7; Estimated Glomerular Filt Rate 15
[2024-09-10 10:13] LABS: Anion Gap 15 (12-20); Blood Urea Nitrogen 57 mg/dL (9-16); Calcium 7.7 mg/dL (8.4-10.2); Carbon Dioxide 23 mmol/L (22-29); Chloride 98 mmol/L (96-108); Glucose Random 245 mg/dL (60-115); Phosphorus 6.1 mg/dL (2.7-4.5); Potassium 4.2 mmol/L (3.3-5.1); Sodium 132 mmol/L (135-145)
--- NOTE | 2024-09-10 10:17 | MHC.RECOVRN ---
Met with pt to follow up and provide support. Pts last dose of methadone was yesterday, this morning received Suboxone 12 mg. Pt laying in bed, awake, alert, easily engages in conversation. Pt reports feeling sick. Reports hot flashes and nausea, appears uncomfortable. Pt did receive clonidine last night, reports it helped with anxiety. Pt denies questions or concerns for t/w. Discussed with Catina Cantu APRN. Additional 8 mg Suboxone ordered, RN aware.
[2024-09-10] MEDS: Buprenorphine/Naloxone 8/2 mg FILM 1 FILM SUBLINGUAL (10:26)
[2024-09-10] MEDS: cloNIDine HCL 0.1 MG TABLET PO ×2 (10:26→19:55)
[2024-09-10] MEDS: Lactulose 20 GM/30 ML SOLUTION PO ×2 (10:31→20:00)
--- NOTE | 2024-09-10 10:33 | P.PNNP_ITS ---
Subjective Subjective Date of Service: 09/10/24 Interval history: 44 y/o male with a medical history of HTN, HLD, CKD3, polysubstance dependence, PVD. 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 He presented on 08/29 with weakness, abdominal bloating, lower extremity edema/pain. creatinine 6.79 on 08/29 (previous creatinine 2.02 from 1 year ago), started HD on 08/30; creatinine now ranging between 3.16 and 5.76 with intermittent HD GFR ranging from 14-21 over last week urine prot/creat ratio 7.441 on 08/29. No blood in urine from 08/29 CT abd/pelvis on 08/29 showed no hydronephrosis, kidneys/ureters unremarkable, showed diffuse anasarca and pulmonary edema. Liver unremarkable. TTE on 09/03 without obvious valvular pathology patient has permacath (right IJ) in place plan to start outpatient dialysis on Friday, 09/13, at [facility], start time 10:45 Patient today is alert and oriented states his breathing feels comfortable denies chest pain, abdominal pain, flank pain states swelling feels continued minimal/ stable in abdomen, scrotum, lower extremities denies muscle cramping, tremors, jerking movements denies pruritus, nausea, vomiting pt is making urine (verde removed, states he is urinating easily/comfortably), 300mL over last 24 hours Physical Exam 2 Vital Signs: Vital Signs: Last Vital Signs Temp 98.3 F 09/10/24 07:21 Pulse 83 09/10/24 09:24 Resp 18 09/10/24 07:21 BP 100/63 09/10/24 09:24 Pulse Ox 94 09/10/24 09:24 O2 Del Method Room Air 09/10/24 07:21 O2 Flow Rate 2 08/30/24 02:00 BMI result Body Mass Index 39.8 Const: Other: Constitutional : Awake, interactive, not in distress Neck : Normal inspection, Supple Cardiovascular : RRR, no JVP, no lower extremity edema Respiratory : good bilateral air entry, no crackles, wheezes or rhonchi Gastrointestinal: soft, lax, Normal bowel sounds, Non tender Skin : Warm, Dry, multiple skin picking gabriel, BKA right, LLE callus with dry skin, Dialysis catheter in place , Urinary: scrotal swelling improving Neurological : Alert & oriented x3, No focal deficit Objective Data Labs 09/09/24 10:36 09/10/24 09:20 Labs: Laboratory Results - last 24 hr 09/09/24 09/09/24 09/09/24 10:36 11:09 15:42 WBC 18.2 H RBC 2.74 L Hgb 8.0 L Hct 25.7 L MCV 93.8 MCH 29.2 MCHC 31.1 RDW 17.7 H Plt Count 321 MPV 11.3 Absolute Nucleated RBC 0.000 Nucleated RBC % (auto) 0.0 Sodium Potassium Chloride Carbon Dioxide Anion Gap BUN Creatinine Estim Creat Clear Calc Estimated GFR POC Glucose 179 H 351 H* Random Glucose Calcium Phosphorus 5.2 H 09/09/24 09/10/24 09/10/24 20:09 07:26 09:20 WBC RBC Hgb Hct MCV MCH MCHC RDW Plt Count MPV Absolute Nucleated RBC Nucleated RBC % (auto) Sodium 132 L Potassium 4.2 Chloride 98 Carbon Dioxide 23 Anion Gap 15 BUN 57 H Creatinine 4.30 H* Estim Creat Clear Calc 27.7 Estimated GFR 15 POC Glucose 263 H 182 H Random Glucose 245 H Calcium 7.7 L Phosphorus 6.1 H Microbiology Microbiology Results: Microbiology 08/29/24 14:03 Blood - Venous Blood Culture - Final No growth after 5 days. 08/29/24 14:03 Blood - Venous Blood Culture - Final No growth after 5 days. 08/29/24 Unknown Urine clean catch - Clean Catch Midstream Urine Culture - Final No growth. 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 Calcitriol 0.25mg daily Phosphorous elevated at 6.1 (improving), calcium acetate 667mg x2 pills TID with meals patient remains fluid-overloaded, will remove 2-3L as tolerated with HD (Fri, Fri, Fri) patient has permacath (right IJ) in place plan to start outpatient dialysis on Friday, 09/13, at [facility], start time 10:45 Continue close monitoring of electrolytes, blood pressure, urine output Will continue to follow Discussed with Dr Cagle Time Spent With Patient Time: Total time managing care of this patient today ____ minutes. Progress Note: Quality Stroke Does the patient have a stroke diagnosis?: No
--- NOTE | 2024-09-10 10:41 | P.PNIM_ITS ---
Subjective Subjective Date of Service: 09/10/24 Interval History: No complaints Review of Systems Review of Systems: Yes all other systems are reviewed and are negative Physical Exam 2 Vital Signs: Vital Signs: Last Vital Signs Temp 98.3 F 09/10/24 07:21 Pulse 83 09/10/24 09:24 Resp 18 09/10/24 07:21 BP 100/63 09/10/24 09:24 Pulse Ox 94 09/10/24 09:24 O2 Del Method Room Air 09/10/24 07:21 O2 Flow Rate 2 08/30/24 02:00 BMI result Body Mass Index 39.8 Const: Other: Constitutional : Awake, interactive, not in distress Neck : Normal inspection, Supple Cardiovascular : RRR, no JVP, no lower extremity edema Respiratory : good bilateral air entry, no crackles, wheezes or rhonchi Gastrointestinal: soft, lax, Normal bowel sounds, Non tender Skin : Warm, Dry, multiple skin picking gabriel, BKA right, LLE callus with dry skin, Dialysis catheter in place , Urinary: scrotal swelling improving Neurological : Alert & oriented x3, No focal deficit Objective Data Active Medications Acetaminophen (Acetaminophen 325 Mg Tablet) 975 mg PO Q6H PRN PRN Reason: Pain, Mild (Pain Scale 1-3), fever or headache Last Admin: 09/06/24 16:10 Dose: 975 mg Documented By: DYLAN Albuterol/Ipratropium (Albuterol/Iprat 2.5/0.5mg 3 Ml Ampul.Neb) 3 ml INHALE Q4H PRN PRN Reason: Shortness of Breath/Wheezing Last Admin: 09/10/24 06:35 Dose: 3 ml Documented By: DUKE Benzocaine (Throat Lozenge, Medicated Lozenge) 1 lozenge MUCOUS MEM Q2H PRN PRN Reason: Sore Throat Last Admin: 09/08/24 03:42 Dose: 1 lozenge Documented By: FLORY Buprenorphine/Naloxone (Buprenorphine/Naloxone 12/3 Mg Film) 1 film SUBLINGUAL BID@0800,1700 [facility] Last Admin: 09/10/24 08:00 Dose: 1 film Documented By: KAYLA Calcitriol (Calcitriol 0.25 Mcg Capsule) 0.25 mcg PO DAILY [facility] Last Admin: 09/10/24 08:00 Dose: 0.25 mcg Documented By: KAYLA Calcium Acetate (Calcium Acetate 667 Mg Capsule) 1,334 mg PO TIDWM [facility] Last Admin: 09/10/24 10:26 Dose: 1,334 mg Documented By: KAYLA Calcium Carbonate (Calcium Carbonate 750 Mg Tab.Chew) 750 mg PO Q4H PRN PRN Reason: Heartburn Last Admin: 09/05/24 19:43 Dose: 750 mg Documented By: VALENTINE Clonidine HCl (Clonidine Hcl 0.1 Mg Tablet) 0.1 mg PO BID@1200,2000 [facility]; Protocol Last Admin: 09/10/24 10:26 Dose: 0.1 mg Documented By: KAYLA Docusate Sodium (Docusate Sodium 100 Mg Capsule) 100 mg PO BID [facility] Last Admin: 09/10/24 08:00 Dose: 100 mg Documented By: KAYLA Glucose (Glucose Gel 15 Gm Gel..Gram.) 15 gm PO Q15M PRN; Protocol PRN Reason: per Hypoglycemia Standing Ord. Guaifenesin/Codeine Phosphate (Guaifen/Codeine Sf 200/20/10ml 10 Ml Liquid) 5 ml PO Q6H PRN PRN Reason: Cough Last Admin: 09/06/24 21:58 Dose: 5 ml Documented By: VALENTINE Heparin Sodium (Porcine) (Heparin Sodium,Porcine 5,000 Unit/Ml Vial) 5,000 unit SUBCUT Q12H [facility] Last Admin: 09/05/24 12:31 Dose: 5,000 unit Documented By: ROSCOE Heparin Sodium (Porcine) (Heparin Sodium,Porcine 5,000 Unit/Ml Vial) 5,000 unit INTRACATH MOWEFR@1645 [facility] Last Admin: 09/08/24 18:20 Dose: Not Given Documented By: ERIK Non-Admin Reason: diaysis med Dextrose (D10) 250 mls @ 750 mls/hr IV Q15M PRN; Protocol PRN Reason: per Hypoglycemia Standing Ord. Insulin Human Lispro (Insulin Lispro 100 Unit/Ml 3 Ml Vial) 0 unit SUBCUT QIDACHS [facility]; Protocol Last Admin: 09/10/24 09:00 Dose: 1 unit Documented By: KAYLA Lactulose (Lactulose 20 Gm/30 Ml Solution) 20 gm PO BID [facility] Last Admin: 09/10/24 10:31 Dose: 20 gm Documented By: KAYLA Melatonin (Melatonin 3 Mg Tablet) 6 mg PO BEDTIME PRN PRN Reason: Insomnia Last Admin: 09/06/24 21:58 Dose: 6 mg Documented By: ARVINDLAMSuzanna Methocarbamol (Methocarbamol 500 Mg Tablet) 500 mg PO TID PRN PRN Reason: Muscle Spasm Last Admin: 09/09/24 17:52 Dose: 500 mg Documented By: KAYLA Multivitamins/Vitamin C (Multivitamin Tablet) 1 tab PO DAILY [facility] Last Admin: 09/10/24 08:00 Dose: 1 tab Documented By: KAYLA Nicotine (Nicotine 14 Mg Patch.Td24) 14 mg TRANSDERMA DAILY [facility] Last Admin: 09/10/24 08:00 Dose: 14 mg Documented By: KAYLA Nicotine Polacrilex (Nicotine Polacrilex 2 Mg Gum) 2 mg BUCCAL Q1H PRN PRN Reason: Nicotine Cravings Last Admin: 09/08/24 14:06 Dose: 2 mg Documented By: ERIK Omeprazole (Omeprazole 40 Mg Capsule.Dr) 40 mg PO DAILY@0630 [facility] Last Admin: 09/10/24 04:32 Dose: 40 mg Documented By: DANIELLE Ondansetron HCl (Ondansetron Hcl 4 Mg/2 Ml Vial) 4 mg IVPUSH Q8H PRN PRN Reason: Nausea and Vomiting Last Admin: 08/31/24 11:09 Dose: 4 mg Documented By: DENNY Oxycodone HCl (Oxycodone Hcl Immed Release 5 Mg Tablet) 5 mg PO Q4H PRN PRN Reason: Pain, Severe (Pain Scale 7-10) Last Admin: 09/10/24 04:32 Dose: 5 mg Documented By: DANIELLE Psyllium Hydrophilic Mucilloid (Psyllium Seed 3.7 Gm Packet) 3.7 gm PO DAILY [facility] Last Admin: 09/10/24 08:01 Dose: 3.7 gm Documented By: KAYLA Sodium Chloride (0.9 % Sodium Chloride Flush 3 Ml Syringe) 3 ml IVFLUSH QSHIFT [facility] Last Admin: 09/10/24 08:01 Dose: 3 ml Documented By: KAYLA Labs 09/09/24 10:36 09/10/24 09:20 Labs: Laboratory Results - last 24 hr 09/09/24 09/09/24 09/09/24 10:36 11:09 15:42 MCV 93.8 MCH 29.2 MCHC 31.1 RDW 17.7 H Plt Count 321 MPV 11.3 Absolute Nucleated RBC 0.000 Nucleated RBC % (auto) 0.0 Anion Gap Estim Creat Clear Calc Estimated GFR POC Glucose 179 H 351 H* Random Glucose Calcium Phosphorus 5.2 H 09/09/24 09/10/24 09/10/24 20:09 07:26 09:20 MCV MCH MCHC RDW Plt Count MPV Absolute Nucleated RBC Nucleated RBC % (auto) Anion Gap 15 Estim Creat Clear Calc 27.7 Estimated GFR 15 POC Glucose 263 H 182 H Random Glucose 245 H Calcium 7.7 L Phosphorus 6.1 H Assessment and Plan (1) Acute renal failure: Status: Acute (2) Anemia: Status: Acute Plan 44M PMH hypertension, hyperlipidemia, diabetes, CKD 3, polysubstance dependence, history of peripheral vascular disease presented with weakness found to have angelo, anemia, leukocysotis, acidosis acute metabolic encephalopathy due to uremic encephalopathy due to ANGELO on CKD 3 complicated by acute metabolic acidosis, mentation improved back to baseline catheter placement 08/30/24 and started dialysis Now with tunneled catheter Elevated IgG, IGA, normal compliment level and PR3, MP, negative spep, upep, significant proteinuria no plan for biopsy as likely diabetic nephropathy. Acute on chronic anemia with Leukocytosis WBC down to 21k likely leukomoid tosha Hb improved after 4 units transfusion hematology input appreciated, BCR-ABL gene negative Given Epogen with HD given Acute hypocalcemia replacement given Elevated PTH, start Calcitriol Hx drug abuse U.Tox +ve for Cocaine, Opiates, Fentanyl and Oxy Addiciton team following Methadone started Diabetes II Insulin sliding scale Hypertension Hold BP meds for now Scrotal swelling secondary to fluid overload support, dialysis, monitor DVT prophylaxis start Heparin SC Full code reason for continued hospitalization: Placement Quality Stroke Does the patient have a stroke diagnosis?: No VTE Prior VTE?: No VTE Risk Level:: Medical - moderate - high VTE Device Contraindication: N/A - Device Ordered VTE Drug Contraindication: Treatment Not Indicated
[2024-09-10 11:26] LABS: Glucose, Whole Blood 277 mg/dL (60-115)
--- NOTE | 2024-09-10 11:33 | MHC.CM.PN ---
EMR REVIEWED, PT REMAINS MEDICALLY CLEARED FOR DC, PT WILL NEED EXTENSIVE REHAB AND HAS HAD NO STR BED OFFERS, NEW LTACH REFERRAL PLACED PT HAS SA/DIABETES AND DIALYSIS, CM WILL CONT TO FOLLOW.
[2024-09-10 15:52] LABS: Glucose, Whole Blood 97 mg/dL (60-115)
--- NOTE | 2024-09-10 16:32 | HO.ADDICTPRO ---
Subjective Subjective Date of Service: 09/10/24 Reason For Visit: angelo Interim History: Patient seen in follow up Seen by tile mason early in AM following AM dose of Suboxone (12mg) RN reporting patient appeared uncomfortable, anxious and reporting nausea Additional suboxone dose 8mg administered with positive effect, per RN Seen by this teletypewriter installer briefly --patient resting, but easily wakes to voice reports feeling better Review of Systems Review of Systems patient resting but appearing comfortable Mental Status Exam Mental Status Exam Level of Consciousness: Drowsy Diagnostics Vital Signs (24Hr): Vital Signs - 24 hr 09/09/24 19:23 09/09/24 23:46 09/10/24 03:23 Temperature 98.8 F 98.8 F 98.7 F Pulse Rate 96 96 90 Respiratory Rate 23 H 23 H 22 H Blood Pressure 133/74 138/83 140/65 H Pulse Oximetry 94 95 98 Oxygen Delivery Method Room Air Room Air Room Air 09/10/24 06:36 09/10/24 07:21 09/10/24 09:24 Temperature 98.3 F Pulse Rate 93 83 83 Respiratory Rate 20 18 Blood Pressure 100/63 100/63 Pulse Oximetry 94 94 Oxygen Delivery Method Room Air 09/10/24 11:10 09/10/24 16:00 Temperature 98.2 F 97.4 F Pulse Rate 83 87 Respiratory Rate 18 18 Blood Pressure 118/72 104/58 L Pulse Oximetry 96 100 Oxygen Delivery Method Room Air Room Air BMI result Body Mass Index 39.8 Labs 09/09/24 10:36 09/10/24 09:20 Labs: Laboratory Results - last 48 hr 09/08/24 09/08/24 09/09/24 16:27 20:41 07:11 WBC RBC Hgb Hct MCV MCH MCHC RDW Plt Count MPV Absolute Nucleated RBC Nucleated RBC % (auto) Sodium Potassium Chloride Carbon Dioxide Anion Gap BUN Creatinine Estim Creat Clear Calc Estimated GFR POC Glucose 216 H 222 H 167 H Random Glucose Calcium Phosphorus 09/09/24 09/09/24 09/09/24 10:36 11:09 15:42 WBC 18.2 H RBC 2.74 L Hgb 8.0 L Hct 25.7 L MCV 93.8 MCH 29.2 MCHC 31.1 RDW 17.7 H Plt Count 321 MPV 11.3 Absolute Nucleated RBC 0.000 Nucleated RBC % (auto) 0.0 Sodium Potassium Chloride Carbon Dioxide Anion Gap BUN Creatinine Estim Creat Clear Calc Estimated GFR POC Glucose 179 H 351 H* Random Glucose Calcium Phosphorus 5.2 H 09/09/24 09/10/24 09/10/24 20:09 07:26 09:20 WBC RBC Hgb Hct MCV MCH MCHC RDW Plt Count MPV Absolute Nucleated RBC Nucleated RBC % (auto) Sodium 132 L Potassium 4.2 Chloride 98 Carbon Dioxide 23 Anion Gap 15 BUN 57 H Creatinine 4.30 H* Estim Creat Clear Calc 27.7 Estimated GFR 15 POC Glucose 263 H 182 H Random Glucose 245 H Calcium 7.7 L Phosphorus 6.1 H 09/10/24 09/10/24 11:12 15:49 WBC RBC Hgb Hct MCV MCH MCHC RDW Plt Count MPV Absolute Nucleated RBC Nucleated RBC % (auto) Sodium Potassium Chloride Carbon Dioxide Anion Gap BUN Creatinine Estim Creat Clear Calc Estimated GFR POC Glucose 277 H 97 Random Glucose Calcium Phosphorus Imaging Radiology Impressions: ITS Impressions KUB X-Ray 08/29/24 13:25 IMPRESSION: 1. Prominent fecal loading of the ascending colon greatest along its proximal segment measuring up to 10.8 cm. 2. There is air-filled dilatation of the remaining colon measuring up to 8.4 cm. Electronically signed by: Angeles Galeas MD 08/29/2024 01:41 PM EDT RP Chest X-Ray 08/29/24 13:54 IMPRESSION: 1. Bronchial thickening suggesting infectious/inflammatory etiology. 2. Elevation right hemidiaphragm. 3. Left basilar atelectasis. Electronically signed by: Angeles Galeas MD 08/29/2024 03:07 PM EDT RP Abdomen/Pelvis CT 08/29/24 15:18 IMPRESSION: 1. No hydronephrosis. 2. Partially visualized patchy opacities in bilateral lung bases which may represent edema or infection. 3. Diffuse anasarca. Fleischner guidelines were followed. Electronically signed by: Mike Galan MD 08/29/2024 03:39 PM EDT RP Medications Medications Current Medications Acetaminophen (Acetaminophen 325 Mg Tablet) 975 mg PO Q6H PRN PRN Reason: Pain, Mild (Pain Scale 1-3), fever or headache Last Admin: 09/06/24 16:10 Dose: 975 mg Albuterol/Ipratropium (Albuterol/Iprat 2.5/0.5mg 3 Ml Ampul.Neb) 3 ml INHALE Q4H PRN PRN Reason: Shortness of Breath/Wheezing Last Admin: 09/10/24 06:35 Dose: 3 ml Benzocaine (Throat Lozenge, Medicated Lozenge) 1 lozenge MUCOUS MEM Q2H PRN PRN Reason: Sore Throat Last Admin: 09/08/24 03:42 Dose: 1 lozenge Buprenorphine/Naloxone (Buprenorphine/Naloxone 4/1 Mg Film) 1 film SUBLINGUAL ONCE ONE Stop: 09/10/24 16:31 Calcitriol (Calcitriol 0.25 Mcg Capsule) 0.25 mcg PO DAILY [facility] Last Admin: 09/10/24 08:00 Dose: 0.25 mcg Calcium Acetate (Calcium Acetate 667 Mg Capsule) 1,334 mg PO TIDWM [facility] Last Admin: 09/10/24 10:26 Dose: 1,334 mg Calcium Carbonate (Calcium Carbonate 750 Mg Tab.Chew) 750 mg PO Q4H PRN PRN Reason: Heartburn Last Admin: 09/05/24 19:43 Dose: 750 mg Clonidine HCl (Clonidine Hcl 0.1 Mg Tablet) 0.1 mg PO BID@1200,2000 [facility]; Protocol Last Admin: 09/10/24 10:26 Dose: 0.1 mg Docusate Sodium (Docusate Sodium 100 Mg Capsule) 100 mg PO BID [facility] Last Admin: 09/10/24 08:00 Dose: 100 mg Glucose (Glucose Gel 15 Gm Gel..Gram.) 15 gm PO Q15M PRN; Protocol PRN Reason: per Hypoglycemia Standing Ord. Heparin Sodium (Porcine) (Heparin Sodium,Porcine 5,000 Unit/Ml Vial) 5,000 unit SUBCUT Q12H [facility] Last Admin: 09/05/24 12:31 Dose: 5,000 unit Heparin Sodium (Porcine) (Heparin Sodium,Porcine 5,000 Unit/Ml Vial) 5,000 unit INTRACATH MOWEFR@1645 [facility] Last Admin: 09/08/24 18:20 Dose: Not Given Dextrose (D10) 250 mls @ 750 mls/hr IV Q15M PRN; Protocol PRN Reason: per Hypoglycemia Standing Ord. Insulin Human Lispro (Insulin Lispro 100 Unit/Ml 3 Ml Vial) 0 unit SUBCUT QIDACHS [facility]; Protocol Last Admin: 09/10/24 13:31 Dose: 6 unit Lactulose (Lactulose 20 Gm/30 Ml Solution) 20 gm PO BID [facility] Last Admin: 09/10/24 10:31 Dose: 20 gm Melatonin (Melatonin 3 Mg Tablet) 6 mg PO BEDTIME PRN PRN Reason: Insomnia Last Admin: 09/06/24 21:58 Dose: 6 mg Methocarbamol (Methocarbamol 500 Mg Tablet) 500 mg PO TID PRN PRN Reason: Muscle Spasm Last Admin: 09/09/24 17:52 Dose: 500 mg Multivitamins/Vitamin C (Multivitamin Tablet) 1 tab PO DAILY [facility] Last Admin: 09/10/24 08:00 Dose: 1 tab Nicotine (Nicotine 14 Mg Patch.Td24) 14 mg TRANSDERMA DAILY [facility] Last Admin: 09/10/24 08:00 Dose: 14 mg Nicotine Polacrilex (Nicotine Polacrilex 2 Mg Gum) 2 mg BUCCAL Q1H PRN PRN Reason: Nicotine Cravings Last Admin: 09/08/24 14:06 Dose: 2 mg Omeprazole (Omeprazole 40 Mg Capsule.Dr) 40 mg PO DAILY@0630 [facility] Last Admin: 09/10/24 04:32 Dose: 40 mg Ondansetron HCl (Ondansetron Hcl 4 Mg/2 Ml Vial) 4 mg IVPUSH Q8H PRN PRN Reason: Nausea and Vomiting Last Admin: 08/31/24 11:09 Dose: 4 mg Oxycodone HCl (Oxycodone Hcl Immed Release 5 Mg Tablet) 5 mg PO Q4H PRN PRN Reason: Pain, Severe (Pain Scale 7-10) Last Admin: 09/10/24 04:32 Dose: 5 mg Psyllium Hydrophilic Mucilloid (Psyllium Seed 3.7 Gm Packet) 3.7 gm PO DAILY [facility] Last Admin: 09/10/24 08:01 Dose: 3.7 gm Sodium Chloride (0.9 % Sodium Chloride Flush 3 Ml Syringe) 3 ml IVFLUSH QSHIFT [facility] Last Admin: 09/10/24 08:01 Dose: 3 ml Allergies Allergies Allergy/AdvReac Type Severity Reaction Status Date / Time No Known Allergies Allergy Verified 08/29/24 13:00 [No Known Allergies*] Assessment & Plan Assessment & Plan (1) Opioid use disorder, severe, dependence: Status: Acute Code(s): F11.20 - Opioid dependence, uncomplicated Assessment and Plan: suboxone 4mg this afternoon--total of 24mg today AM dosing 12mg --with goal of 12mg BID methadone discontinued. Plan Total time managing care of this patient today _35___ minutes.
[2024-09-10] MEDS: Buprenorphine/Naloxone 4/1 mg FILM 1 FILM SUBLINGUAL (17:24)
[2024-09-10] MEDS: methocarbamoL 500 MG TABLET PO (19:55)
[2024-09-10 20:26] LABS: Glucose, Whole Blood 122 mg/dL (60-115)
[2024-09-11] VITALS (10 sets, daily range): BP systolic 95–114; BP diastolic 52–77; PULSE 47–101; RESP 17–23; TEMP 36.2–37.2; O2SAT 93–99
[2024-09-11] MEDS: Acetaminophen 325 MG TABLET 975 MG PO ×3 (00:25→20:42)
[2024-09-11] MEDS: Throat Lozenge, Medicated LOZENGE 1 LOZENGE MUCOUS MEM ×3 (00:25→20:53)
[2024-09-11] MEDS: Melatonin 3 MG TABLET 6 MG PO (00:26)
[2024-09-11] MEDS: oxyCODONE HCl Immed Release 5 MG TABLET PO ×4 (00:26→20:42)
[2024-09-11] MEDS: Omeprazole 40 MG CAPSULE.DR PO (06:19)
[2024-09-11 07:42] LABS: Glucose, Whole Blood 181 mg/dL (60-115)
[2024-09-11] MEDS: Calcium Acetate 667 MG CAPSULE 1334 MG PO ×3 (08:31→17:02)
[2024-09-11] MEDS: Docusate Sodium 100 MG CAPSULE PO ×2 (08:31→20:41)
[2024-09-11] MEDS: Buprenorphine/Naloxone 12/3 mg FILM 1 FILM SUBLINGUAL ×2 (08:31→17:01)
[2024-09-11] MEDS: Multivitamin TABLET 1 TAB PO (08:31)
[2024-09-11] MEDS: calcitrioL 0.25 MCG CAPSULE PO (08:31)
[2024-09-11] MEDS: Insulin Lispro 100 UNIT/ML 3 ML VIAL SUBCUT ×4 (08:31→20:42)
[2024-09-11] MEDS: Psyllium seed 3.7 GM PACKET PO (08:31)
[2024-09-11] MEDS: 0.9 % Sodium Chloride Flush 3 ML SYRINGE IVFLUSH ×2 (08:32→20:43)
--- NOTE | 2024-09-11 10:59 | HO.PM.IMPN ---
Subjective Subjective Date of Service: 09/11/24 Interval History: No complaints Review of Systems Review of Systems: Yes all other systems are reviewed and are negative Physical Exam Vital Signs: Vital Signs: Last Vital Signs Temp 97.4 F 09/11/24 07:21 Pulse 60 09/11/24 07:21 Resp 17 09/11/24 07:21 BP 96/62 09/11/24 07:21 Pulse Ox 97 09/11/24 07:21 O2 Del Method Room Air 09/11/24 07:21 O2 Flow Rate 2 08/30/24 02:00 BMI result Body Mass Index 39.8 Const: Other: Constitutional : Awake, interactive, not in distress Neck : Normal inspection, Supple Cardiovascular : RRR, no JVP, no lower extremity edema Respiratory : good bilateral air entry, no crackles, wheezes or rhonchi Gastrointestinal: soft, lax, Normal bowel sounds, Non tender Skin : Warm, Dry, multiple skin picking gabriel, BKA right, LLE callus with dry skin, Dialysis catheter in place , Urinary: scrotal swelling improving Neurological : Alert & oriented x3, No focal deficit Objective Data Active Medications Acetaminophen (Acetaminophen 325 Mg Tablet) 975 mg PO Q6H PRN PRN Reason: Pain, Mild (Pain Scale 1-3), fever or headache Last Admin: 09/11/24 06:29 Dose: 975 mg Documented By: JYOTI Albuterol/Ipratropium (Albuterol/Iprat 2.5/0.5mg 3 Ml Ampul.Neb) 3 ml INHALE Q4H PRN PRN Reason: Shortness of Breath/Wheezing Last Admin: 09/10/24 19:00 Dose: 3 ml Documented By: LISSETTE Benzocaine (Throat Lozenge, Medicated Lozenge) 1 lozenge MUCOUS MEM Q2H PRN PRN Reason: Sore Throat Last Admin: 09/11/24 00:25 Dose: 1 lozenge Documented By: JYOTI Buprenorphine/Naloxone (Buprenorphine/Naloxone 12/3 Mg Film) 1 film SUBLINGUAL BID@0800,1600 [facility] Calcitriol (Calcitriol 0.25 Mcg Capsule) 0.25 mcg PO DAILY [facility] Last Admin: 09/11/24 08:31 Dose: 0.25 mcg Documented By: DENNY Calcium Acetate (Calcium Acetate 667 Mg Capsule) 1,334 mg PO TIDWM [facility] Last Admin: 09/11/24 08:31 Dose: 1,334 mg Documented By: DENNY Calcium Carbonate (Calcium Carbonate 750 Mg Tab.Chew) 750 mg PO Q4H PRN PRN Reason: Heartburn Last Admin: 09/05/24 19:43 Dose: 750 mg Documented By: LAFLAMSuzanna Clonidine HCl (Clonidine Hcl 0.1 Mg Tablet) 0.1 mg PO BID@1200,2000 [facility]; Protocol Last Admin: 09/10/24 19:55 Dose: 0.1 mg Documented By: JYOTI Docusate Sodium (Docusate Sodium 100 Mg Capsule) 100 mg PO BID [facility] Last Admin: 09/11/24 08:31 Dose: 100 mg Documented By: DENNY Glucose (Glucose Gel 15 Gm Gel..Gram.) 15 gm PO Q15M PRN; Protocol PRN Reason: per Hypoglycemia Standing Ord. Heparin Sodium (Porcine) (Heparin Sodium,Porcine 5,000 Unit/Ml Vial) 5,000 unit SUBCUT Q12H [facility] Last Admin: 09/05/24 12:31 Dose: 5,000 unit Documented By: ROSCOE Heparin Sodium (Porcine) (Heparin Sodium,Porcine 5,000 Unit/Ml Vial) 5,000 unit INTRACATH MOWEFR@1645 [facility] Last Admin: 09/10/24 17:24 Dose: Not Given Documented By: KAYLA Non-Admin Reason: Given in Dialysis Dextrose (D10) 250 mls @ 750 mls/hr IV Q15M PRN; Protocol PRN Reason: per Hypoglycemia Standing Ord. Insulin Human Lispro (Insulin Lispro 100 Unit/Ml 3 Ml Vial) 0 unit SUBCUT QIDACHS [facility]; Protocol Last Admin: 09/11/24 08:31 Dose: 2 unit Documented By: DENNY Lactulose (Lactulose 20 Gm/30 Ml Solution) 20 gm PO BID [facility] Last Admin: 09/11/24 09:36 Dose: Not Given Documented By: DENNY Non-Admin Reason: Patient Refused Melatonin (Melatonin 3 Mg Tablet) 6 mg PO BEDTIME PRN PRN Reason: Insomnia Last Admin: 09/11/24 00:26 Dose: 6 mg Documented By: JYOTI Methocarbamol (Methocarbamol 500 Mg Tablet) 500 mg PO TID PRN PRN Reason: Muscle Spasm Last Admin: 09/10/24 19:55 Dose: 500 mg Documented By: JYOTI Multivitamins/Vitamin C (Multivitamin Tablet) 1 tab PO DAILY [facility] Last Admin: 09/11/24 08:31 Dose: 1 tab Documented By: DENNY Nicotine (Nicotine 14 Mg Patch.Td24) 14 mg TRANSDERMA DAILY [facility] Last Admin: 09/11/24 09:36 Dose: Not Given Documented By: DENNY Non-Admin Reason: Patient Refused Nicotine Polacrilex (Nicotine Polacrilex 2 Mg Gum) 2 mg BUCCAL Q1H PRN PRN Reason: Nicotine Cravings Last Admin: 09/08/24 14:06 Dose: 2 mg Documented By: ERIK Omeprazole (Omeprazole 40 Mg Capsule.) 40 mg PO DAILY@0630 [facility] Last Admin: 09/11/24 06:19 Dose: 40 mg Documented By: JYOTI Ondansetron HCl (Ondansetron Hcl 4 Mg/2 Ml Vial) 4 mg IVPUSH Q8H PRN PRN Reason: Nausea and Vomiting Last Admin: 08/31/24 11:09 Dose: 4 mg Documented By: DENNY Oxycodone HCl (Oxycodone Hcl Immed Release 5 Mg Tablet) 5 mg PO Q4H PRN PRN Reason: Pain, Severe (Pain Scale 7-10) Last Admin: 09/11/24 06:28 Dose: 5 mg Documented By: JYOTI Psyllium Hydrophilic Mucilloid (Psyllium Seed 3.7 Gm Packet) 3.7 gm PO DAILY [facility] Last Admin: 09/11/24 08:31 Dose: 3.7 gm Documented By: DENNY Sodium Chloride (0.9 % Sodium Chloride Flush 3 Ml Syringe) [facility] Last Admin: 09/11/24 08:32 Dose: 3 ml Documented By: DENNY Labs 09/09/24 10:36 09/10/24 09:20 Labs: Laboratory Results - last 24 hr 09/10/24 09/10/24 09/10/24 11:12 15:49 20:19 POC Glucose 277 H 97 122 H 09/11/24 07:18 POC Glucose 181 H Assessment and Plan (1) Acute renal failure: Status: Acute (2) Anemia: Status: Acute Plan 44M PMH hypertension, hyperlipidemia, diabetes, CKD 3, polysubstance dependence, history of peripheral vascular disease presented with weakness found to have angelo, anemia, leukocysotis, acidosis acute metabolic encephalopathy due to uremic encephalopathy due to ANGELO on CKD 3 complicated by acute metabolic acidosis, mentation improved back to baseline catheter placement 08/30/24 and started dialysis Now with tunneled catheter Elevated IgG, IGA, normal compliment level and PR3, MP, negative spep, upep, significant proteinuria no plan for biopsy as likely diabetic nephropathy. Acute on chronic anemia with Leukocytosis WBC down to 21k likely leukomoid tosha Hb improved after 4 units transfusion hematology input appreciated, BCR-ABL gene negative Given Epogen with HD given Acute hypocalcemia replacement given Elevated PTH, start Calcitriol Hx drug abuse U.Tox +ve for Cocaine, Opiates, Fentanyl and Oxy Addiciton team following Methadone started Diabetes II Insulin sliding scale Hypertension Hold BP meds for now Scrotal swelling secondary to fluid overload support, dialysis, monitor DVT prophylaxis start Heparin SC Full code reason for continued hospitalization: Placement Quality Stroke Does the patient have a stroke diagnosis?: No VTE Prior VTE?: No VTE Risk Level:: Medical - moderate - high VTE Device Contraindication: N/A - Device Ordered VTE Drug Contraindication: Treatment Not Indicated
[2024-09-11 11:13] LABS: Glucose, Whole Blood 282 mg/dL (60-115)
[2024-09-11] MEDS: cloNIDine HCL 0.1 MG TABLET PO ×2 (12:04→20:41)
[2024-09-11] MEDS: Albuterol/Iprat 2.5/0.5MG 3 ML AMPUL.NEB INHALE ×2 (12:40→21:40)
[2024-09-11 16:14] LABS: Glucose, Whole Blood 155 mg/dL (60-115)
[2024-09-11 20:40] LABS: Glucose, Whole Blood 187 mg/dL (60-115)
[2024-09-11] MEDS: Lactulose 20 GM/30 ML SOLUTION PO (20:43)
[2024-09-12] VITALS (8 sets, daily range): BP systolic 96–104; BP diastolic 44–67; PULSE 81–90; RESP 16–21; TEMP 36.6–37.3; O2SAT 90–98
[2024-09-12] MEDS: Acetaminophen 325 MG TABLET 975 MG PO ×2 (04:54→21:40)
[2024-09-12] MEDS: oxyCODONE HCl Immed Release 5 MG TABLET PO ×3 (04:54→22:10)
[2024-09-12] MEDS: Omeprazole 40 MG CAPSULE.DR PO (05:29)
[2024-09-12] MEDS: Throat Lozenge, Medicated LOZENGE 1 LOZENGE MUCOUS MEM ×3 (06:29→22:21)
[2024-09-12 06:30] LABS: Hematocrit 22.4 % (42.0-52.0); Mean Corpuscular HGB Conc 31.3 g/dl (31.0-36.0); Mean Corpuscular Hemoglobin 28.7 pg (27.0-33.0); Mean Corpuscular Volume 91.8 fL (80.0-98.0); Mean Platelet Volume 11.4 fL (9.4-12.4); Platelet Count 292 X10*3/uL (160-400); Red Blood Count 2.44 X10*6/uL (4.60-5.80); Red Cell Distribution Width 17.2 % (11.0-16.0); White Blood Count 15.4 X10*3/uL (4.8-10.8)
[2024-09-12 06:51] LABS: Anion Gap 17 (12-20); Blood Urea Nitrogen 52 mg/dL (9-16); Calcium 7.8 mg/dL (8.4-10.2); Carbon Dioxide 21 mmol/L (22-29); Chloride 98 mmol/L (96-108); Creatinine Clr Calc Pharmacy 28.3; Estimated Glomerular Filt Rate 15; Glucose Fasting 171 mg/dL (60-99); Potassium 4.1 mmol/L (3.3-5.1); Sodium 132 mmol/L (135-145)
[2024-09-12 07:34] LABS: Glucose, Whole Blood 139 mg/dL (60-115)
[2024-09-12] MEDS: Docusate Sodium 100 MG CAPSULE PO ×2 (07:59→19:45)
[2024-09-12] MEDS: Psyllium seed 3.7 GM PACKET PO (08:00)
[2024-09-12] MEDS: Calcium Acetate 667 MG CAPSULE 1334 MG PO ×3 (08:00→15:30)
[2024-09-12] MEDS: Buprenorphine/Naloxone 12/3 mg FILM 1 FILM SUBLINGUAL ×2 (08:00→15:29)
[2024-09-12] MEDS: Nicotine 14 MG PATCH.TD24 TRANSDERMA (08:00)
[2024-09-12] MEDS: calcitrioL 0.25 MCG CAPSULE PO (08:00)
[2024-09-12] MEDS: Multivitamin TABLET 1 TAB PO (08:00)
[2024-09-12] MEDS: 0.9 % Sodium Chloride Flush 3 ML SYRINGE IVFLUSH (08:07)
--- NOTE | 2024-09-12 10:28 | P.PNIM_ITS ---
Subjective Subjective Date of Service: 09/12/24 Interval History: No complaints Review of Systems Review of Systems: Yes all other systems are reviewed and are negative Physical Exam 2 Vital Signs: Vital Signs: Last Vital Signs Temp 98.5 F 09/12/24 07:35 Pulse 84 09/12/24 07:35 Resp 21 H 09/12/24 03:41 BP 96/60 09/12/24 07:35 Pulse Ox 97 09/12/24 07:35 O2 Del Method Room Air 09/12/24 07:35 O2 Flow Rate 2 08/30/24 02:00 BMI result Body Mass Index 39.8 Const: Other: Constitutional : Awake, interactive, not in distress Neck : Normal inspection, Supple Cardiovascular : RRR, no JVP, no lower extremity edema Respiratory : good bilateral air entry, no crackles, wheezes or rhonchi Gastrointestinal: soft, lax, Normal bowel sounds, Non tender Skin : Warm, Dry, multiple skin picking gabriel, BKA right, LLE callus with dry skin, Dialysis catheter in place , Urinary: scrotal swelling improving Neurological : Alert & oriented x3, No focal deficit Objective Data Active Medications Acetaminophen (Acetaminophen 325 Mg Tablet) 975 mg PO Q6H PRN PRN Reason: Pain, Mild (Pain Scale 1-3), fever or headache Last Admin: 09/12/24 04:54 Dose: 975 mg Documented By: JYOTI Albuterol/Ipratropium (Albuterol/Iprat 2.5/0.5mg 3 Ml Ampul.Neb) 3 ml INHALE Q4H PRN PRN Reason: Shortness of Breath/Wheezing Last Admin: 09/11/24 21:40 Dose: 3 ml Documented By: DUKE Benzocaine (Throat Lozenge, Medicated Lozenge) 1 lozenge MUCOUS MEM Q2H PRN PRN Reason: Sore Throat Last Admin: 09/12/24 06:29 Dose: 1 lozenge Documented By: JYOTI Buprenorphine/Naloxone (Buprenorphine/Naloxone 12/3 Mg Film) 1 film SUBLINGUAL BID@0800,1600 [facility] Last Admin: 09/12/24 08:00 Dose: 1 film Documented By: DENNY Calcitriol (Calcitriol 0.25 Mcg Capsule) 0.25 mcg PO DAILY [facility] Last Admin: 09/12/24 08:00 Dose: 0.25 mcg Documented By: DENNY Calcium Acetate (Calcium Acetate 667 Mg Capsule) 1,334 mg PO TIDWM [facility] Last Admin: 09/12/24 08:00 Dose: 1,334 mg Documented By: DENNY Calcium Carbonate (Calcium Carbonate 750 Mg Tab.Chew) 750 mg PO Q4H PRN PRN Reason: Heartburn Last Admin: 09/05/24 19:43 Dose: 750 mg Documented By: ARVINDLAMSuzanna Clonidine HCl (Clonidine Hcl 0.1 Mg Tablet) 0.1 mg PO BID@1200,2000 [facility]; Protocol Last Admin: 09/11/24 20:41 Dose: 0.1 mg Documented By: JYOTI Comments: 114/77 b.p 90 hr Docusate Sodium (Docusate Sodium 100 Mg Capsule) 100 mg PO BID [facility] Last Admin: 09/12/24 07:59 Dose: 100 mg Documented By: DENNY Glucose (Glucose Gel 15 Gm Gel..Gram.) 15 gm PO Q15M PRN; Protocol PRN Reason: per Hypoglycemia Standing Ord. Heparin Sodium (Porcine) (Heparin Sodium,Porcine 5,000 Unit/Ml Vial) 5,000 unit SUBCUT Q12H [facility] Last Admin: 09/05/24 12:31 Dose: 5,000 unit Documented By: ROSCOE Heparin Sodium (Porcine) (Heparin Sodium,Porcine 5,000 Unit/Ml Vial) 5,000 unit INTRACATH MOWEFR@1645 [facility] Last Admin: 09/10/24 17:24 Dose: Not Given Documented By: KAYLA Non-Admin Reason: Given in Dialysis Dextrose (D10) 250 mls @ 750 mls/hr IV Q15M PRN; Protocol PRN Reason: per Hypoglycemia Standing Ord. Insulin Human Lispro (Insulin Lispro 100 Unit/Ml 3 Ml Vial) 0 unit SUBCUT QIDACHS [facility]; Protocol Last Admin: 09/12/24 08:13 Dose: Not Given Documented By: DENNY Non-Admin Reason: No Insulin Coverage Lactulose (Lactulose 20 Gm/30 Ml Solution) 20 gm PO BID [facility] Last Admin: 09/11/24 20:43 Dose: 20 gm Documented By: JYOTI Melatonin (Melatonin 3 Mg Tablet) 6 mg PO BEDTIME PRN PRN Reason: Insomnia Last Admin: 09/11/24 00:26 Dose: 6 mg Documented By: JYOTI Methocarbamol (Methocarbamol 500 Mg Tablet) 500 mg PO TID PRN PRN Reason: Muscle Spasm Last Admin: 09/10/24 19:55 Dose: 500 mg Documented By: JYOTI Multivitamins/Vitamin C (Multivitamin Tablet) 1 tab PO DAILY [facility] Last Admin: 09/12/24 08:00 Dose: 1 tab Documented By: DENNY Nicotine (Nicotine 14 Mg Patch.Td24) 14 mg TRANSDERMA DAILY [facility] Last Admin: 09/12/24 08:00 Dose: 14 mg Documented By: DENNY Nicotine Polacrilex (Nicotine Polacrilex 2 Mg Gum) 2 mg BUCCAL Q1H PRN PRN Reason: Nicotine Cravings Last Admin: 09/08/24 14:06 Dose: 2 mg Documented By: ERIK Omeprazole (Omeprazole 40 Mg Capsule.) 40 mg PO DAILY@0630 [facility] Last Admin: 09/12/24 05:29 Dose: 40 mg Documented By: JYOTI Ondansetron HCl (Ondansetron Hcl 4 Mg/2 Ml Vial) 4 mg IVPUSH Q8H PRN PRN Reason: Nausea and Vomiting Last Admin: 08/31/24 11:09 Dose: 4 mg Documented By: DENNY Oxycodone HCl (Oxycodone Hcl Immed Release 5 Mg Tablet) 5 mg PO Q4H PRN PRN Reason: Pain, Severe (Pain Scale 7-10) Last Admin: 09/12/24 07:59 Dose: 5 mg Documented By: DENNY Psyllium Hydrophilic Mucilloid (Psyllium Seed 3.7 Gm Packet) 3.7 gm PO DAILY [facility] Last Admin: 09/12/24 08:00 Dose: 3.7 gm Documented By: DENNY Sodium Chloride (0.9 % Sodium Chloride Flush 3 Ml Syringe) [address] [facility] Last Admin: 09/12/24 08:07 Dose: 3 ml Documented By: DENNY Labs 09/12/24 06:21 09/12/24 06:21 Labs: Laboratory Results - last 24 hr 09/11/24 09/11/24 09/11/24 11:05 16:03 20:36 MCV MCH MCHC RDW Plt Count MPV Absolute Nucleated RBC Nucleated RBC % (auto) Anion Gap Estim Creat Clear Calc Estimated GFR POC Glucose 282 H 155 H 187 H Fasting Glucose Calcium 09/12/24 09/12/24 06:21 07:31 MCV 91.8 MCH 28.7 MCHC 31.3 RDW 17.2 H Plt Count 292 MPV 11.4 Absolute Nucleated RBC 0.000 Nucleated RBC % (auto) 0.0 Anion Gap 17 Estim Creat Clear Calc 28.3 Estimated GFR 15 POC Glucose 139 H Fasting Glucose 171 H Calcium 7.8 L Assessment and Plan (1) Acute renal failure: Status: Acute (2) Anemia: Status: Acute Plan 44M PMH hypertension, hyperlipidemia, diabetes, CKD 3, polysubstance dependence, history of peripheral vascular disease presented with weakness found to have angelo, anemia, leukocysotis, acidosis acute metabolic encephalopathy due to uremic encephalopathy due to ANGELO on CKD 3 complicated by acute metabolic acidosis, mentation improved back to baseline catheter placement 08/30/24 and started dialysis Now with tunneled catheter Elevated IgG, IGA, normal compliment level and PR3, MP, negative spep, upep, significant proteinuria no plan for biopsy as likely diabetic nephropathy. 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 Hb improved after 4 units transfusion hematology input appreciated, BCR-ABL gene negative Given Epogen with HD given hgb now 7, monitor, will likely need another unit in HD tomorrow Acute hypocalcemia replacement given Elevated PTH, started Calcitriol Hx drug abuse U.Tox +ve for Cocaine, Opiates, Fentanyl and Oxy Addiciton team following Methadone started Diabetes II Insulin sliding scale Hypertension Hold BP meds for now Scrotal swelling secondary to fluid overload support, dialysis, monitor DVT prophylaxis start Heparin SC Full code reason for continued hospitalization: Placement Quality Stroke Does the patient have a stroke diagnosis?: No VTE Prior VTE?: No VTE Risk Level:: Medical - moderate - high VTE Device Contraindication: N/A - Device Ordered VTE Drug Contraindication: Treatment Not Indicated
[2024-09-12 11:14] LABS: Glucose, Whole Blood 151 mg/dL (60-115)
[2024-09-12] MEDS: cloNIDine HCL 0.1 MG TABLET PO ×2 (12:11→19:45)
[2024-09-12 16:06] LABS: Glucose, Whole Blood 134 mg/dL (60-115)
[2024-09-12] MEDS: Albuterol Sulfate 90 MCG 8 GM INHALER 2 PUFF INHALE (17:43)
[2024-09-12] MEDS: Lactulose 20 GM/30 ML SOLUTION PO (19:45)
[2024-09-12] MEDS: methocarbamoL 500 MG TABLET PO (19:48)
[2024-09-12 20:35] LABS: Glucose, Whole Blood 149 mg/dL (60-115)
[2024-09-12] MEDS: Albuterol/Iprat 2.5/0.5MG 3 ML AMPUL.NEB INHALE (20:55)
[2024-09-13] VITALS (9 sets, daily range): BP systolic 94–124; BP diastolic 50–66; PULSE 82–101; RESP 12–20; TEMP 36.2–37.7; O2SAT 90–99
[2024-09-13] MEDS: Omeprazole 40 MG CAPSULE.DR PO (04:26)
[2024-09-13] MEDS: oxyCODONE HCl Immed Release 5 MG TABLET PO ×3 (04:27→21:02)
[2024-09-13] MEDS: 0.9 % Sodium Chloride Flush 3 ML SYRINGE IVFLUSH ×3 (04:27→21:11)
[2024-09-13 07:36] LABS: Glucose, Whole Blood 106 mg/dL (60-115)
--- NOTE | 2024-09-13 08:35 | P.PNNP_ITS ---
Subjective Subjective Date of Service: 09/13/24 Interval history: 44 y/o male with a medical history of HTN, HLD, CKD3, polysubstance dependence, PVD. 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 He presented on 08/29 with weakness, abdominal bloating, lower extremity edema/pain. creatinine 6.79 on 08/29 (previous creatinine 2.02 from 1 year ago), started HD on 08/30; creatinine now ranging between 3.16 and 5.76 with intermittent HD GFR ranging from 14-21 over last week urine prot/creat ratio 7.441 on 08/29. No blood in urine from 08/29 CT abd/pelvis on 08/29 showed no hydronephrosis, kidneys/ureters unremarkable, showed diffuse anasarca and pulmonary edema. Liver unremarkable. TTE on 09/03 without obvious valvular pathology patient has permacath (right IJ) in place patient has spot at [facility], was scheduled for 09/13 outpatient start but unfortunately still waiting for rehab placement Patient today is alert and oriented states his breathing feels comfortable denies chest pain, abdominal pain, flank pain states swelling feels continued minimal/ stable in abdomen, scrotum, lower extremities denies muscle cramping, tremors, jerking movements denies pruritus, nausea, vomiting pt has not had UOP for last 24 hours Physical Exam 2 Vital Signs: Vital Signs: Last Vital Signs Temp 98.3 F 09/13/24 07:11 Pulse 87 09/13/24 07:11 Resp 14 09/13/24 07:11 BP 97/54 L 09/13/24 07:11 Pulse Ox 92 09/13/24 07:11 O2 Del Method Room Air 09/13/24 07:11 O2 Flow Rate 2 09/13/24 00:00 BMI result Body Mass Index 39.8 Const: General: no acute distress, alert and awake Resp: Effort & Inspection: normal respiratory effort and able to speak in complete sentences Auscultation: clear to auscultation bilaterally Cardio: Rate: regular rate Rhythm: regular rhythm Heart sounds: S1 normal heart sound present and S2 normal heart sound present GI: Other: anasarca, pitting edema in lower abdomen Palpation (GI): Soft to palpation and nontender : General: Yes no CVA tenderness Back/Spine/Pelvis: Back: no CVA tenderness Skin: Lesions: no lesions Rashes: no rashes Neuro: Other: no tremor or myoclonus Extrem: General: Yes edema (upper lower extremities with trace to +1 pitting edema ) Objective Data Labs 09/13/24 09:19 09/13/24 09:19 Labs: Laboratory Results - last 24 hr 09/06/24 09/12/24 09/12/24 07:00 11:11 16:02 POC Glucose 151 H 134 H Crossmatch See Detail 09/12/24 09/13/24 20:32 07:17 POC Glucose 149 H 106 Crossmatch Microbiology Microbiology Results: Microbiology 08/29/24 14:03 Blood - Venous Blood Culture - Final No growth after 5 days. 08/29/24 14:03 Blood - Venous Blood Culture - Final No growth after 5 days. 08/29/24 Unknown Urine clean catch - Clean Catch Midstream Urine Culture - Final No growth. Procedures Date of Service Date of Service: 09/13/24 Assessment & Plan Assessment and plan (1) Acute renal failure: Status: Acute (2) MERLIN (acute kidney injury): Status: Acute (3) CKD (chronic kidney disease) stage 3, GFR 30-59 ml/min: Status: Acute Plan Patient initially with MERLIN on chronic proteinuric CKD Most likely CKD 2/2 diabetic nephropathy at baseline, MERLIN on CKD likely tubular injury, along with natural progression of renal disease likely entering ESRD Unlikely AIN given lack of RBCs in urine Patient has tested positive for cocaine, differential includes cocaine-induced injury Plan for HD today (gets M,W,F) patient remains fluid overloaded but continues to maintain manageable fluid status with HD, oliguric H&H is 6.7 & 22.1 today, unlikely related to CKD given precipitous/acute drops, procrit 10,000 units ordered for today slight metabolic acidosis with serum bicarb of 21 potassium within normal limits Calcium 7.8, PTH 746. Calcitriol 0.25mg daily Phosphorous elevated at 6.1 (improving), calcium acetate 667mg x2 pills TID with meals patient remains fluid-overloaded, will remove 2-3L as tolerated with HD (Mon, Wed, Fri) patient has permacath (right IJ) in place plan to start outpatient dialysis with [facility] once patient has rehab placement Continue close monitoring of electrolytes, blood pressure, urine output *H&H drops are someone acute/precipitous, unlikely related to CKD alone. Will continue to follow Discussed with Dr Yañez Time Spent With Patient Time: Total time managing care of this patient today ____ minutes. Progress Note: Quality Stroke Does the patient have a stroke diagnosis?: No
[2024-09-13] MEDS: Albuterol Sulfate 90 MCG 8 GM INHALER 2 PUFF INHALE (08:48)
[2024-09-13] MEDS: Buprenorphine/Naloxone 12/3 mg FILM 1 FILM SUBLINGUAL (08:48)
[2024-09-13] MEDS: Throat Lozenge, Medicated LOZENGE 1 LOZENGE MUCOUS MEM ×2 (08:58→21:02)
--- NOTE | 2024-09-13 09:33 | MHC.CM.PN ---
Addendum entered by Suri Garcia RN 09/13/24 13:47: CM MET W/PT AND MOTHER ARLEN AT BEDSIDE, ARLEN CONFIRMS PT CAN DC TO HER HOME AND STATES, HE'S ALWAYS LIVED W/ME, PT ONCE AGAIN CLAIMING HE CAN GET UP AND TRANSFER OR WALK W/PROSTHETIC AND PT'S MOTHER BROUGHT IN INNER CUSHION FOR PT THAT CM HAD REQUESTED LAST WEEK. PT CURRENTLY NOT AGREEABLE TO GO FAR [facility] IN [place]. Addendum entered by Suri Garcia RN 09/13/24 10:24: CM RECEIVED CALL BACK FROM LIAISON AT [facility], LIAISON REPORTS THE [place] LOCATION WILL HAVE NO HD UNTIL TRANSITIONING TO [facility] HOWEVER [facility] AND THEY WOULD ACCEPT PT IF THEY CAN CONFIRM THAT PT'S MOTHER CAN TAKE HIM BACK ONCE HE FINISHES HIS REHAB, PT WILL NEED MEDICAID FOR TRANSPORT, CM TO CONSULT FS TO DETERMINE IF HE HAS PLAN THAT WILL COVER TRANSPORT TO OUTPT HD. Original Note: EMR REVIEWED, CM RECEIVED MESSAGE FROM LIAISON AT [facility] REQUESTING CM TO CONTACT HER, CM ATTEMPTED TO CONTACT VIKTORIA AT [phone] AT 9:20AM, NO ANSWER AND DETAILED MESSAGE LEFT, CM WILL CONT TO FOLLOW DC NEEDS.
--- NOTE | 2024-09-13 09:53 | P.PNIM_ITS ---
Subjective Subjective Date of Service: 09/13/24 Interval History: No complaints Review of Systems Review of Systems: Yes all other systems are reviewed and are negative Physical Exam 2 Vital Signs: Vital Signs: Last Vital Signs Temp 98.3 F 09/13/24 07:11 Pulse 87 09/13/24 07:11 Resp 14 09/13/24 07:11 BP 97/54 L 09/13/24 07:11 Pulse Ox 92 09/13/24 07:11 O2 Del Method Room Air 09/13/24 07:11 O2 Flow Rate 2 09/13/24 00:00 BMI result Body Mass Index 39.8 Const: Other: Constitutional : Awake, interactive, not in distress Neck : Normal inspection, Supple Cardiovascular : RRR, no JVP, no lower extremity edema Respiratory : good bilateral air entry, no crackles, wheezes or rhonchi Gastrointestinal: soft, lax, Normal bowel sounds, Non tender Skin : Warm, Dry, multiple skin picking gabriel, BKA right, LLE callus with dry skin, Dialysis catheter in place , Urinary: scrotal swelling improving Neurological : Alert & oriented x3, No focal deficit Objective Data Active Medications Acetaminophen (Acetaminophen 325 Mg Tablet) 975 mg PO Q6H PRN PRN Reason: Pain, Mild (Pain Scale 1-3) Albuterol Sulfate (Albuterol Sulfate 90 Mcg 8 Gm Inhaler) 2 puff INHALE RQ6H PRN PRN Reason: sob Last Admin: 09/13/24 08:48 Dose: 2 puff Documented By: ABEL Albuterol/Ipratropium (Albuterol/Iprat 2.5/0.5mg 3 Ml Ampul.Neb) 3 ml INHALE Q4H PRN PRN Reason: Shortness of Breath/Wheezing Last Admin: 09/12/24 20:55 Dose: 3 ml Documented By: LISSETTE Benzocaine (Throat Lozenge, Medicated Lozenge) 1 lozenge MUCOUS MEM Q2H PRN PRN Reason: Sore Throat Last Admin: 09/13/24 08:58 Dose: 1 lozenge Documented By: ABEL Buprenorphine/Naloxone (Buprenorphine/Naloxone 12/3 Mg Film) 1 film SUBLINGUAL BID@0800,1600 [facility] Last Admin: 09/13/24 08:48 Dose: 1 film Documented By: ABEL Calcitriol (Calcitriol 0.25 Mcg Capsule) 0.25 mcg PO DAILY [facility] Last Admin: 09/12/24 08:00 Dose: 0.25 mcg Documented By: DENNY Calcium Acetate (Calcium Acetate 667 Mg Capsule) 1,334 mg PO TIDWM [facility] Last Admin: 09/13/24 09:12 Dose: Not Given Documented By: ABEL Non-Admin Reason: Off unit: Dialysis Calcium Carbonate (Calcium Carbonate 750 Mg Tab.Chew) 750 mg PO Q4H PRN PRN Reason: Heartburn Last Admin: 09/05/24 19:43 Dose: 750 mg Documented By: VALENTINE Docusate Sodium (Docusate Sodium 100 Mg Capsule) 100 mg PO BID [facility] Last Admin: 09/12/24 19:45 Dose: 100 mg Documented By: ZAIRE Glucose (Glucose Gel 15 Gm Gel..Gram.) 15 gm PO Q15M PRN; Protocol PRN Reason: per Hypoglycemia Standing Ord. Heparin Sodium (Porcine) (Heparin Sodium,Porcine 5,000 Unit/Ml Vial) 5,000 unit SUBCUT Q12H [facility] Last Admin: 09/05/24 12:31 Dose: 5,000 unit Documented By: ROSCOE Heparin Sodium (Porcine) (Heparin Sodium,Porcine 5,000 Unit/Ml Vial) 5,000 unit INTRACATH MOWEFR@1645 [facility] Last Admin: 09/10/24 17:24 Dose: Not Given Documented By: KAYLA Non-Admin Reason: Given in Dialysis Dextrose (D10) 250 mls @ 750 mls/hr IV Q15M PRN; Protocol PRN Reason: per Hypoglycemia Standing Ord. Insulin Human Lispro (Insulin Lispro 100 Unit/Ml 3 Ml Vial) 0 unit SUBCUT QIDACHS [facility]; Protocol Last Admin: 09/13/24 07:45 Dose: Not Given Documented By: ABEL Non-Admin Reason: No Insulin Coverage Lactulose (Lactulose 20 Gm/30 Ml Solution) 20 gm PO BID [facility] Last Admin: 09/12/24 19:45 Dose: 20 gm Documented By: ZAIRE Melatonin (Melatonin 3 Mg Tablet) 6 mg PO BEDTIME PRN PRN Reason: Insomnia Last Admin: 09/11/24 00:26 Dose: 6 mg Documented By: JYOTI Methocarbamol (Methocarbamol 500 Mg Tablet) 500 mg PO TID PRN PRN Reason: Muscle Spasm Last Admin: 09/12/24 19:48 Dose: 500 mg Documented By: ZAIRE Multivitamins/Vitamin C (Multivitamin Tablet) 1 tab PO DAILY [facility] Last Admin: 09/12/24 08:00 Dose: 1 tab Documented By: DENNY Nicotine (Nicotine 14 Mg Patch.Td24) 14 mg TRANSDERMA DAILY [facility] Last Admin: 09/12/24 08:00 Dose: 14 mg Documented By: DENNY Nicotine Polacrilex (Nicotine Polacrilex 2 Mg Gum) 2 mg BUCCAL Q1H PRN PRN Reason: Nicotine Cravings Last Admin: 09/08/24 14:06 Dose: 2 mg Documented By: ERIK Omeprazole (Omeprazole 40 Mg Capsule.Dr) 40 mg PO DAILY@0630 [facility] Last Admin: 09/13/24 04:26 Dose: 40 mg Documented By: GARY Ondansetron HCl (Ondansetron Hcl 4 Mg/2 Ml Vial) 4 mg IVPUSH Q8H PRN PRN Reason: Nausea and Vomiting Last Admin: 08/31/24 11:09 Dose: 4 mg Documented By: DENNY Oxycodone HCl (Oxycodone Hcl Immed Release 5 Mg Tablet) 5 mg PO Q4H PRN PRN Reason: Pain, Severe (Pain Scale 7-10) Last Admin: 09/13/24 08:58 Dose: 5 mg Documented By: ABEL Psyllium Hydrophilic Mucilloid (Psyllium Seed 3.7 Gm Packet) 3.7 gm PO DAILY [facility] Last Admin: 09/12/24 08:00 Dose: 3.7 gm Documented By: DENNY Sodium Chloride (0.9 % Sodium Chloride Flush 3 Ml Syringe) 3 ml IVFLUSH QSHIFT [facility] Last Admin: 09/13/24 08:49 Dose: 3 ml Documented By: ABEL Labs 09/12/24 06:21 09/12/24 06:21 Labs: Laboratory Results - last 24 hr 09/06/24 09/12/24 09/12/24 07:00 11:11 16:02 POC Glucose 151 H 134 H Crossmatch See Detail 09/12/24 09/13/24 20:32 07:17 POC Glucose 149 H 106 Crossmatch Assessment and Plan (1) Acute renal failure: Status: Acute (2) Anemia: Status: Acute Plan 44M PMH hypertension, hyperlipidemia, diabetes, CKD 3, polysubstance dependence, history of peripheral vascular disease presented with weakness found to have angelo, anemia, leukocysotis, acidosis acute metabolic encephalopathy due to uremic encephalopathy due to ANGELO on CKD 3 complicated by acute metabolic acidosis, mentation improved back to baseline catheter placement 08/30/24 and started dialysis Now with tunneled catheter Elevated IgG, IGA, normal compliment level and PR3, MP, negative spep, upep, significant proteinuria no plan for biopsy as likely diabetic nephropathy. 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 Hb improved after 4 units transfusion hematology input appreciated, BCR-ABL gene negative Given Epogen with HD given plan for 5th unit today with HD Acute hypocalcemia replacement given Elevated PTH, started Calcitriol Hx drug abuse U.Tox +ve for Cocaine, Opiates, Fentanyl and Oxy Addiciton team following Methadone started Diabetes II Insulin sliding scale Hypertension Hold BP meds for now Scrotal swelling secondary to fluid overload support, dialysis, monitor DVT prophylaxis start Heparin SC Full code reason for continued hospitalization: Placement Quality Stroke Does the patient have a stroke diagnosis?: No VTE Prior VTE?: No VTE Risk Level:: Medical - moderate - high VTE Device Contraindication: N/A - Device Ordered VTE Drug Contraindication: Treatment Not Indicated
[2024-09-13 10:52] LABS: Hematocrit 22.1 % (42.0-52.0); Mean Corpuscular HGB Conc 30.3 g/dl (31.0-36.0); Mean Corpuscular Hemoglobin 28.3 pg (27.0-33.0); Mean Corpuscular Volume 93.2 fL (80.0-98.0); Mean Platelet Volume 12.2 fL (9.4-12.4); Platelet Count 289 X10*3/uL (160-400); Red Blood Count 2.37 X10*6/uL (4.60-5.80); Red Cell Distribution Width 17.6 % (11.0-16.0); White Blood Count 17.9 X10*3/uL (4.8-10.8)
[2024-09-13 11:04] LABS: Phosphorus 7.6 mg/dL (2.7-4.5)
[2024-09-13 11:08] LABS: Hemoglobin 6.7 g/dl (14.0-18.0)
[2024-09-13 11:11] LABS: Anion Gap 17 (12-20); Blood Urea Nitrogen 66 mg/dL (9-16); Calcium 7.5 mg/dL (8.4-10.2); Carbon Dioxide 21 mmol/L (22-29); Chloride 96 mmol/L (96-108); Creatinine Clr Calc Pharmacy 24.5; Estimated Glomerular Filt Rate 13; Glucose Fasting 141 mg/dL (60-99); Potassium 4.6 mmol/L (3.3-5.1); Sodium 129 mmol/L (135-145)
[2024-09-13 13:18] LABS: Glucose, Whole Blood 121 mg/dL (60-115)
--- NOTE | 2024-09-13 13:18 | P.PNADD_ITS ---
Subjective Subjective Date of Service: 09/13/24 Reason For Visit: angelo Interim History: patient seen in follow up while in dialysis sleeping, but easily wakes to voice and light touch reporting anxiety in the evenings, requesting increase in suboxone dose discussed changing current schedule to continue same total amount, but increase frequency to address PM anxiety, patient agreeable Review of Systems Constitutional: Reports as per HPI Mental Status Exam Mental Status Exam Patient Appearance: Appropriate Level of Consciousness: Appropriate and Drowsy Patient Behavior: Appropriate Mood Description: Calm Affect Description: Calm Speech Pattern: Clear Diagnostics Vital Signs (24Hr): Vital Signs - 24 hr 09/12/24 15:41 09/12/24 17:46 09/12/24 19:15 Temperature 97.9 F 99.2 F Pulse Rate 83 84 90 Respiratory Rate 17 18 16 Blood Pressure 104/67 99/64 Pulse Oximetry 95 93 Oxygen Delivery Method Room Air Room Air Oxygen Flow Rate 09/12/24 20:55 09/12/24 21:55 09/13/24 00:00 Temperature 98.1 F Pulse Rate 90 84 Respiratory Rate 16 20 18 Blood Pressure 101/66 Pulse Oximetry 99 Oxygen Delivery Method Nasal Cannula Oxygen Flow Rate 2 09/13/24 04:00 09/13/24 07:11 Temperature 98.2 F 98.3 F Pulse Rate 82 87 Respiratory Rate 18 14 Blood Pressure 107/53 L 97/54 L Pulse Oximetry 95 92 Oxygen Delivery Method Room Air Room Air Oxygen Flow Rate BMI result Body Mass Index 39.8 Labs 09/13/24 09:19 09/13/24 09:19 Labs: Laboratory Results - last 48 hr 09/06/24 09/11/24 09/11/24 07:00 16:03 20:36 WBC RBC Hgb Hct MCV MCH MCHC RDW Plt Count MPV Absolute Nucleated RBC Nucleated RBC % (auto) Sodium Potassium Chloride Carbon Dioxide Anion Gap BUN Creatinine Estim Creat Clear Calc Estimated GFR POC Glucose 155 H 187 H Fasting Glucose Calcium Phosphorus Blood Type Antibody Screen Crossmatch See Detail 09/12/24 09/12/24 09/12/24 06:21 07:31 11:11 WBC 15.4 H RBC 2.44 L Hgb 7.0 L* Hct 22.4 L MCV 91.8 MCH 28.7 MCHC 31.3 RDW 17.2 H Plt Count 292 MPV 11.4 Absolute Nucleated RBC 0.000 Nucleated RBC % (auto) 0.0 Sodium 132 L Potassium 4.1 Chloride 98 Carbon Dioxide 21 L Anion Gap 17 BUN 52 H Creatinine 4.20 H* Estim Creat Clear Calc 28.3 Estimated GFR 15 POC Glucose 139 H 151 H Fasting Glucose 171 H Calcium 7.8 L Phosphorus Blood Type Antibody Screen Crossmatch 09/12/24 09/12/24 09/13/24 16:02 20:32 07:17 WBC RBC Hgb Hct MCV MCH MCHC RDW Plt Count MPV Absolute Nucleated RBC Nucleated RBC % (auto) Sodium Potassium Chloride Carbon Dioxide Anion Gap BUN Creatinine Estim Creat Clear Calc Estimated GFR POC Glucose 134 H 149 H 106 Fasting Glucose Calcium Phosphorus Blood Type Antibody Screen Crossmatch 09/13/24 09/13/24 09/13/24 09:19 11:13 13:13 WBC 17.9 H RBC 2.37 L Hgb 6.7 L* Hct 22.1 L MCV 93.2 MCH 28.3 MCHC 30.3 L RDW 17.6 H Plt Count 289 MPV 12.2 Absolute Nucleated RBC 0.000 Nucleated RBC % (auto) 0.0 Sodium 129 L Potassium 4.6 Chloride 96 Carbon Dioxide 21 L Anion Gap 17 BUN 66 H Creatinine 4.85 H* Estim Creat Clear Calc 24.5 Estimated GFR 13 POC Glucose 121 H Fasting Glucose 141 H Calcium 7.5 L Phosphorus 7.6 H Blood Type O Positive Antibody Screen NEGATIVE Crossmatch See Detail Imaging Radiology Impressions: ITS Impressions KUB X-Ray 08/29/24 13:25 IMPRESSION: 1. Prominent fecal loading of the ascending colon greatest along its proximal segment measuring up to 10.8 cm. 2. There is air-filled dilatation of the remaining colon measuring up to 8.4 cm. Electronically signed by: Angeles Galeas MD 08/29/2024 01:41 PM EDT RP Chest X-Ray 08/29/24 13:54 IMPRESSION: 1. Bronchial thickening suggesting infectious/inflammatory etiology. 2. Elevation right hemidiaphragm. 3. Left basilar atelectasis. Electronically signed by: Angeles Galeas MD 08/29/2024 03:07 PM EDT Abdomen/Pelvis CT 08/29/24 15:18 IMPRESSION: 1. No hydronephrosis. 2. Partially visualized patchy opacities in bilateral lung bases which may represent edema or infection. 3. Diffuse anasarca. Fleischner guidelines were followed. Electronically signed by: Mike Galan MD 08/29/2024 03:39 PM EDT Medications Medications Current Medications Acetaminophen (Acetaminophen 325 Mg Tablet) 975 mg PO Q6H PRN PRN Reason: Pain, Mild (Pain Scale 1-3) Albuterol Sulfate (Albuterol Sulfate 90 Mcg 8 Gm Inhaler) 2 puff INHALE RQ6H PRN PRN Reason: sob Last Admin: 09/13/24 08:48 Dose: 2 puff Albuterol/Ipratropium (Albuterol/Iprat 2.5/0.5mg 3 Ml Ampul.Neb) 3 ml INHALE Q4H PRN PRN Reason: Shortness of Breath/Wheezing Last Admin: 09/12/24 20:55 Dose: 3 ml Benzocaine (Throat Lozenge, Medicated Lozenge) 1 lozenge MUCOUS MEM Q2H PRN PRN Reason: Sore Throat Last Admin: 09/13/24 08:58 Dose: 1 lozenge Buprenorphine/Naloxone (Buprenorphine/Naloxone 8/2 Mg Film) 1 film SUBLINGUAL TID@0800,1400,2000 [facility] Buprenorphine/Naloxone (Buprenorphine/Naloxone 8/2 Mg Film) 1 film SUBLINGUAL ONCE ONE Stop: 09/13/24 16:01 Calcitriol (Calcitriol 0.25 Mcg Capsule) 0.25 mcg PO DAILY [facility] Last Admin: 09/12/24 08:00 Dose: 0.25 mcg Calcium Acetate (Calcium Acetate 667 Mg Capsule) 1,334 mg PO TIDWM [facility] Last Admin: 09/13/24 09:12 Dose: Not Given Calcium Carbonate (Calcium Carbonate 750 Mg Tab.Chew) 750 mg PO Q4H PRN PRN Reason: Heartburn Last Admin: 09/05/24 19:43 Dose: 750 mg Docusate Sodium (Docusate Sodium 100 Mg Capsule) 100 mg PO BID [facility] Last Admin: 09/12/24 19:45 Dose: 100 mg Glucose (Glucose Gel 15 Gm Gel..Gram.) 15 gm PO Q15M PRN; Protocol PRN Reason: per Hypoglycemia Standing Ord. Heparin Sodium (Porcine) (Heparin Sodium,Porcine 5,000 Unit/Ml Vial) 5,000 unit SUBCUT Q12H [facility] Last Admin: 09/05/24 12:31 Dose: 5,000 unit Heparin Sodium (Porcine) (Heparin Sodium,Porcine 5,000 Unit/Ml Vial) 5,000 unit INTRACATH MOWEFR@1645 [facility] Last Admin: 09/10/24 17:24 Dose: Not Given Dextrose (D10) 250 mls @ 750 mls/hr IV Q15M PRN; Protocol PRN Reason: per Hypoglycemia Standing Ord. Insulin Human Lispro (Insulin Lispro 100 Unit/Ml 3 Ml Vial) 0 unit SUBCUT QIDACHS [facility]; Protocol Last Admin: 09/13/24 07:45 Dose: Not Given Lactulose (Lactulose 20 Gm/30 Ml Solution) 20 gm PO BID [facility] Last Admin: 09/12/24 19:45 Dose: 20 gm Melatonin (Melatonin 3 Mg Tablet) 6 mg PO BEDTIME PRN PRN Reason: Insomnia Last Admin: 09/11/24 00:26 Dose: 6 mg Methocarbamol (Methocarbamol 500 Mg Tablet) 500 mg PO TID PRN PRN Reason: Muscle Spasm Last Admin: 09/12/24 19:48 Dose: 500 mg Multivitamins/Vitamin C (Multivitamin Tablet) 1 tab PO DAILY [facility] Last Admin: 09/12/24 08:00 Dose: 1 tab Nicotine (Nicotine 14 Mg Patch.Td24) 14 mg TRANSDERMA DAILY [facility] Last Admin: 09/12/24 08:00 Dose: 14 mg Nicotine Polacrilex (Nicotine Polacrilex 2 Mg Gum) 2 mg BUCCAL Q1H PRN PRN Reason: Nicotine Cravings Last Admin: 09/08/24 14:06 Dose: 2 mg Omeprazole (Omeprazole 40 Mg Capsule.Dr) 40 mg PO DAILY@0630 [facility] Last Admin: 09/13/24 04:26 Dose: 40 mg Ondansetron HCl (Ondansetron Hcl 4 Mg/2 Ml Vial) 4 mg IVPUSH Q8H PRN PRN Reason: Nausea and Vomiting Last Admin: 08/31/24 11:09 Dose: 4 mg Oxycodone HCl (Oxycodone Hcl Immed Release 5 Mg Tablet) 5 mg PO Q4H PRN PRN Reason: Pain, Severe (Pain Scale 7-10) Last Admin: 09/13/24 08:58 Dose: 5 mg Psyllium Hydrophilic Mucilloid (Psyllium Seed 3.7 Gm Packet) 3.7 gm PO DAILY [facility] Last Admin: 09/12/24 08:00 Dose: 3.7 gm Sodium Chloride (0.9 % Sodium Chloride Flush 3 Ml Syringe) 3 ml IVFLUSH QSHIFT [facility] Last Admin: 09/13/24 08:49 Dose: 3 ml Allergies Allergies Allergy/AdvReac Type Severity Reaction Status Date / Time No Known Allergies Allergy Verified 08/29/24 13:00 [No Known Allergies*] Assessment & Plan Assessment & Plan (1) Opioid use disorder, severe, dependence: Status: Acute Code(s): F11.20 - Opioid dependence, uncomplicated Assessment and Plan: * change suboxone dosing from 12mg BID to 8mg TID * d/c clonidine due to lower BPs * today received 12mg in AM. Will add 8mg this afternoon and add 4mg before bed Total time managing care of this patient today _25___ minutes.
[2024-09-13] MEDS: Calcium Acetate 667 MG CAPSULE 1334 MG PO ×2 (13:57→17:11)
[2024-09-13] MEDS: Multivitamin TABLET 1 TAB PO (13:57)
[2024-09-13] MEDS: Docusate Sodium 100 MG CAPSULE PO (13:57)
[2024-09-13] MEDS: Lactulose 20 GM/30 ML SOLUTION PO (13:57)
[2024-09-13] MEDS: calcitrioL 0.25 MCG CAPSULE PO (13:57)
[2024-09-13] MEDS: Psyllium seed 3.7 GM PACKET PO (13:58)
[2024-09-13] MEDS: Nicotine 14 MG PATCH.TD24 TRANSDERMA (13:58)
[2024-09-13] MEDS: Buprenorphine/Naloxone 8/2 mg FILM 1 FILM SUBLINGUAL (16:02)
[2024-09-13 16:41] LABS: Glucose, Whole Blood 192 mg/dL (60-115)
[2024-09-13] MEDS: Insulin Lispro 100 UNIT/ML 3 ML VIAL SUBCUT ×2 (17:11→21:03)
[2024-09-13 19:35] LABS: Glucose, Whole Blood 166 mg/dL (60-115)
[2024-09-13] MEDS: Albuterol/Iprat 2.5/0.5MG 3 ML AMPUL.NEB INHALE (20:53)
[2024-09-13] MEDS: Buprenorphine/Naloxone 4/1 mg FILM 1 FILM SUBLINGUAL (21:01)
[2024-09-14] VITALS (8 sets, daily range): BP systolic 96–137; BP diastolic 59–65; PULSE 88–98; RESP 18–20; TEMP 36.2–37.4; O2SAT 93–99
[2024-09-14] MEDS: Albuterol Sulfate 90 MCG 8 GM INHALER 2 PUFF INHALE ×2 (01:13→13:38)
[2024-09-14] MEDS: Omeprazole 40 MG CAPSULE.DR PO (05:24)
[2024-09-14 07:03] LABS: Hematocrit 23.9 % (42.0-52.0); Hemoglobin 7.4 g/dl (14.0-18.0); Mean Corpuscular Hemoglobin 28.5 pg (27.0-33.0); Mean Corpuscular Volume 91.9 fL (80.0-98.0); Mean Platelet Volume 11.4 fL (9.4-12.4); Platelet Count 288 X10*3/uL (160-400); Red Cell Distribution Width 16.9 % (11.0-16.0); White Blood Count 15.6 X10*3/uL (4.8-10.8)
[2024-09-14 07:23] LABS: Anion Gap 16 (12-20); Blood Urea Nitrogen 45 mg/dL (9-16); Calcium 7.7 mg/dL (8.4-10.2); Carbon Dioxide 21 mmol/L (22-29); Chloride 96 mmol/L (96-108); Estimated Glomerular Filt Rate 17; Glucose Fasting 163 mg/dL (60-99); Potassium 4.1 mmol/L (3.3-5.1); Sodium 129 mmol/L (135-145)
[2024-09-14 08:01] LABS: Glucose, Whole Blood 151 mg/dL (60-115)
[2024-09-14] MEDS: Insulin Lispro 100 UNIT/ML 3 ML VIAL SUBCUT ×3 (08:10→17:18)
[2024-09-14] MEDS: Lactulose 20 GM/30 ML SOLUTION PO (09:09)
[2024-09-14] MEDS: Multivitamin TABLET 1 TAB PO (09:09)
[2024-09-14] MEDS: Docusate Sodium 100 MG CAPSULE PO ×2 (09:10→21:09)
[2024-09-14] MEDS: Calcium Acetate 667 MG CAPSULE 1334 MG PO ×3 (09:10→17:18)
[2024-09-14] MEDS: calcitrioL 0.25 MCG CAPSULE PO (09:10)
[2024-09-14] MEDS: Psyllium seed 3.7 GM PACKET PO (09:10)
[2024-09-14] MEDS: Buprenorphine/Naloxone 8/2 mg FILM 1 FILM SUBLINGUAL ×3 (09:10→21:09)
[2024-09-14] MEDS: Nicotine 14 MG PATCH.TD24 TRANSDERMA (09:10)
--- NOTE | 2024-09-14 09:13 | P.PNIM_ITS ---
Subjective Subjective Date of Service: 09/14/24 Interval History: No complaints Review of Systems Review of Systems: Yes all other systems are reviewed and are negative Physical Exam 2 Vital Signs: Vital Signs: Last Vital Signs Temp 98.9 F 09/14/24 07:08 Pulse 88 09/14/24 07:08 Resp 18 09/14/24 07:08 BP 96/60 09/14/24 07:08 Pulse Ox 99 09/14/24 07:08 O2 Del Method Nasal Cannula 09/14/24 07:08 O2 Flow Rate 2 09/14/24 07:08 BMI result Body Mass Index 39.8 Const: General: no acute distress, alert and awake Resp: Effort & Inspection: normal respiratory effort and able to speak in complete sentences Auscultation: clear to auscultation bilaterally Cardio: Rate: regular rate Rhythm: regular rhythm Heart sounds: S1 normal heart sound present and S2 normal heart sound present GI: Other: anasarca, pitting edema in lower abdomen Palpation (GI): Soft to palpation and nontender : General: Yes no CVA tenderness Back/Spine/Pelvis: Back: no CVA tenderness Skin: Lesions: no lesions Rashes: no rashes Neuro: Other: no tremor or myoclonus Extrem: General: Yes edema (upper lower extremities with trace to +1 pitting edema ) Objective Data Active Medications Acetaminophen (Acetaminophen 325 Mg Tablet) 975 mg PO Q6H PRN PRN Reason: Pain, Mild (Pain Scale 1-3) Albuterol Sulfate (Albuterol Sulfate 90 Mcg 8 Gm Inhaler) 2 puff INHALE RQ6H PRN PRN Reason: sob Last Admin: 09/14/24 01:13 Dose: 2 puff Documented By: EDEN Albuterol/Ipratropium (Albuterol/Iprat 2.5/0.5mg 3 Ml Ampul.Neb) 3 ml INHALE Q4H PRN PRN Reason: Shortness of Breath/Wheezing Last Admin: 09/13/24 20:53 Dose: 3 ml Documented By: EDEN Benzocaine (Throat Lozenge, Medicated Lozenge) 1 lozenge MUCOUS MEM Q2H PRN PRN Reason: Sore Throat Last Admin: 09/13/24 21:02 Dose: 1 lozenge Documented By: NAY Buprenorphine/Naloxone (Buprenorphine/Naloxone 8/2 Mg Film) 1 film SUBLINGUAL TID@0800,1400,2000 [facility] Calcitriol (Calcitriol 0.25 Mcg Capsule) 0.25 mcg PO DAILY [facility] Last Admin: 09/13/24 13:57 Dose: 0.25 mcg Documented By: ABEL Calcium Acetate (Calcium Acetate 667 Mg Capsule) 1,334 mg PO TIDWM [facility] Last Admin: 09/13/24 17:11 Dose: 1,334 mg Documented By: STEFANI Calcium Carbonate (Calcium Carbonate 750 Mg Tab.Chew) 750 mg PO Q4H PRN PRN Reason: Heartburn Last Admin: 09/05/24 19:43 Dose: 750 mg Documented By: LAFLAMC Docusate Sodium (Docusate Sodium 100 Mg Capsule) 100 mg PO BID [facility] Last Admin: 09/13/24 21:03 Dose: Not Given Documented By: NYA Non-Admin Reason: Patient Refused Glucose (Glucose Gel 15 Gm Gel..Gram.) 15 gm PO Q15M PRN; Protocol PRN Reason: per Hypoglycemia Standing Ord. Heparin Sodium (Porcine) (Heparin Sodium,Porcine 5,000 Unit/Ml Vial) 5,000 unit SUBCUT Q12H [facility] Last Admin: 09/05/24 12:31 Dose: 5,000 unit Documented By: ROSCOE Heparin Sodium (Porcine) (Heparin Sodium,Porcine 5,000 Unit/Ml Vial) 5,000 unit INTRACATH MOWEFR@1645 [facility] Last Admin: 09/13/24 17:03 Dose: Not Given Documented By: STEFANI Non-Admin Reason: given in dialysis Dextrose (D10) 250 mls @ 750 mls/hr IV Q15M PRN; Protocol PRN Reason: per Hypoglycemia Standing Ord. Insulin Human Lispro (Insulin Lispro 100 Unit/Ml 3 Ml Vial) 0 unit SUBCUT QIDACHS [facility]; Protocol Last Admin: 09/14/24 08:10 Dose: 2 unit Documented By: ABEL Lactulose (Lactulose 20 Gm/30 Ml Solution) 20 gm PO BID [facility] Last Admin: 09/13/24 21:04 Dose: Not Given Documented By: NYA Non-Admin Reason: Patient Refused Melatonin (Melatonin 3 Mg Tablet) 6 mg PO BEDTIME PRN PRN Reason: Insomnia Last Admin: 09/11/24 00:26 Dose: 6 mg Documented By: JYOTI Methocarbamol (Methocarbamol 500 Mg Tablet) 500 mg PO TID PRN PRN Reason: Muscle Spasm Last Admin: 09/12/24 19:48 Dose: 500 mg Documented By: ZAIRE Multivitamins/Vitamin C (Multivitamin Tablet) 1 tab PO DAILY [facility] Last Admin: 09/13/24 13:57 Dose: 1 tab Documented By: ABEL Nicotine (Nicotine 14 Mg Patch.Td24) 14 mg TRANSDERMA DAILY [facility] Last Admin: 09/13/24 13:58 Dose: 14 mg Documented By: ABEL Nicotine Polacrilex (Nicotine Polacrilex 2 Mg Gum) 2 mg BUCCAL Q1H PRN PRN Reason: Nicotine Cravings Last Admin: 09/08/24 14:06 Dose: 2 mg Documented By: ERIK Omeprazole (Omeprazole 40 Mg Capsule.Dr) 40 mg PO DAILY@0630 [facility] Last Admin: 09/14/24 05:24 Dose: 40 mg Documented By: NYA Ondansetron HCl (Ondansetron Hcl 4 Mg/2 Ml Vial) 4 mg IVPUSH Q8H PRN PRN Reason: Nausea and Vomiting Last Admin: 08/31/24 11:09 Dose: 4 mg Documented By: DENNY Oxycodone HCl (Oxycodone Hcl Immed Release 5 Mg Tablet) 5 mg PO Q4H PRN PRN Reason: Pain, Severe (Pain Scale 7-10) Last Admin: 09/13/24 21:02 Dose: 5 mg Documented By: NYA Psyllium Hydrophilic Mucilloid (Psyllium Seed 3.7 Gm Packet) 3.7 gm PO DAILY [facility] Last Admin: 09/13/24 13:58 Dose: 3.7 gm Documented By: ABEL Sodium Chloride (0.9 % Sodium Chloride Flush 3 Ml Syringe) 3 ml IVFLUSH QSHIFT [facility] Last Admin: 09/13/24 21:11 Dose: 3 ml Documented By: NYA Labs 09/14/24 06:45 09/14/24 06:45 Labs: Laboratory Results - last 24 hr 09/06/24 09/13/24 09/13/24 07:00 09:19 11:13 MCV 93.2 MCH 28.3 MCHC 30.3 L RDW 17.6 H Plt Count 289 MPV 12.2 Absolute Nucleated RBC 0.000 Nucleated RBC % (auto) 0.0 Anion Gap 17 Estim Creat Clear Calc 24.5 Estimated GFR 13 POC Glucose Fasting Glucose 141 H Calcium 7.5 L Phosphorus 7.6 H Blood Type O Positive Antibody Screen NEGATIVE Crossmatch See Detail See Detail 09/13/24 09/13/24 09/13/24 13:13 16:37 19:29 MCV MCH MCHC RDW Plt Count MPV Absolute Nucleated RBC Nucleated RBC % (auto) Anion Gap Estim Creat Clear Calc Estimated GFR POC Glucose 121 H 192 H 166 H Fasting Glucose Calcium Phosphorus Blood Type Antibody Screen Crossmatch 09/14/24 09/14/24 06:45 07:12 MCV 91.9 MCH 28.5 MCHC 31.0 RDW 16.9 H Plt Count 288 MPV 11.4 Absolute Nucleated RBC 0.000 Nucleated RBC % (auto) 0.0 Anion Gap 16 Estim Creat Clear Calc 31.0 Estimated GFR 17 POC Glucose 151 H Fasting Glucose 163 H Calcium 7.7 L Phosphorus Blood Type Antibody Screen Crossmatch Assessment and Plan (1) Acute renal failure: Status: Acute (2) Anemia: Status: Acute Plan 44M PMH hypertension, hyperlipidemia, diabetes, CKD 3, polysubstance dependence, history of peripheral vascular disease presented with weakness found to have angelo, anemia, leukocysotis, acidosis acute metabolic encephalopathy due to uremic encephalopathy due to ANGELO on CKD 3 complicated by acute metabolic acidosis, mentation improved back to baseline catheter placement 08/30/24 and started dialysis Now with tunneled catheter Elevated IgG, IGA, normal compliment level and PR3, MP, negative spep, upep, significant proteinuria no plan for biopsy as likely diabetic nephropathy. 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 s/p 5 units prbc total hematology input appreciated, BCR-ABL gene negative Given Epogen with HD given Acute hypocalcemia replacement given Elevated PTH, started Calcitriol Hx drug abuse U.Tox +ve for Cocaine, Opiates, Fentanyl and Oxy Addiciton team following Methadone started Diabetes II Insulin sliding scale debility pt appreciated - plan for STR at SNF if patient able to transfer with minimal assist prior SNF transfer will change plan for home with services DVT prophylaxis Heparin SC Full code reason for continued hospitalization: Placement Quality Stroke Does the patient have a stroke diagnosis?: No VTE Prior VTE?: No VTE Risk Level:: Medical - moderate - high VTE Device Contraindication: N/A - Device Ordered VTE Drug Contraindication: Treatment Not Indicated
[2024-09-14] MEDS: 0.9 % Sodium Chloride Flush 3 ML SYRINGE IVFLUSH ×3 (09:15→21:17)
--- NOTE | 2024-09-14 10:01 | PM.PNNEP ---
Subjective Subjective Date of Service: 09/14/24 Interval history: 44 y/o male with a medical history of HTN, HLD, CKD3, polysubstance dependence, PVD. 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 He presented on 08/29 with weakness, abdominal bloating, lower extremity edema/pain. creatinine 6.79 on 08/29 (previous creatinine 2.02 from 1 year ago), started HD on 08/30; creatinine now ranging between 3.16 and 5.76 with intermittent HD GFR ranging from 13-21 over last week urine prot/creat ratio 7.441 on 08/29. No blood in urine from 08/29 CT abd/pelvis on 08/29 showed no hydronephrosis, kidneys/ureters unremarkable, showed diffuse anasarca and pulmonary edema. Liver unremarkable. TTE on 09/03 without obvious valvular pathology patient has permacath (right IJ) in place patient has spot at [facility], was scheduled for 09/13 outpatient start but unfortunately still waiting for rehab placement Patient today is alert and oriented states his breathing feels comfortable denies chest pain, abdominal pain, flank pain states swelling feels continued minimal/ stable in abdomen, scrotum, lower extremities denies muscle cramping, tremors, jerking movements denies pruritus, nausea, vomiting pt has had minimal UOP for last 24 hours, thinks last time he went was last night. Per chart review 750mL over last 24 hours. Pt states he would like to pursue renal transplant if needed, as multiple family members have offered to donate to him. Physical Exam Vital Signs: Vital Signs: Last Vital Signs Temp 98.9 F 09/14/24 07:08 Pulse 88 09/14/24 09:44 Resp 18 09/14/24 07:08 BP 96/60 09/14/24 09:44 Pulse Ox 99 09/14/24 09:44 O2 Del Method Nasal Cannula 09/14/24 07:08 O2 Flow Rate 2 09/14/24 07:08 BMI result Body Mass Index 39.8 Const: General: no acute distress, alert and awake Resp: Effort & Inspection: normal respiratory effort and able to speak in complete sentences Auscultation: clear to auscultation bilaterally Cardio: Rate: regular rate Rhythm: regular rhythm Heart sounds: S1 normal heart sound present and S2 normal heart sound present GI: Other: anasarca, pitting edema in lower abdomen Palpation (GI): Soft to palpation and nontender : General: Yes no CVA tenderness Back/Spine/Pelvis: Back: no CVA tenderness Skin: Lesions: no lesions Rashes: no rashes Neuro: Other: no tremor or myoclonus Extrem: General: Yes edema (upper lower extremities with trace to +1 pitting edema ) Objective Data Labs 09/14/24 06:45 09/14/24 06:45 Labs: Laboratory Results - last 24 hr 09/13/24 09/13/24 09/13/24 09:19 11:13 13:13 WBC 17.9 H RBC 2.37 L Hgb 6.7 L* Hct 22.1 L MCV 93.2 MCH 28.3 MCHC 30.3 L RDW 17.6 H Plt Count 289 MPV 12.2 Absolute Nucleated RBC 0.000 Nucleated RBC % (auto) 0.0 Sodium 129 L Potassium 4.6 Chloride 96 Carbon Dioxide 21 L Anion Gap 17 BUN 66 H Creatinine 4.85 H* Estim Creat Clear Calc 24.5 Estimated GFR 13 POC Glucose 121 H Fasting Glucose 141 H Calcium 7.5 L Phosphorus 7.6 H Blood Type O Positive Antibody Screen NEGATIVE Crossmatch See Detail 09/13/24 09/13/24 09/14/24 16:37 19:29 06:45 WBC 15.6 H RBC 2.60 L Hgb 7.4 L Hct 23.9 L MCV 91.9 MCH 28.5 MCHC 31.0 RDW 16.9 H Plt Count 288 MPV 11.4 Absolute Nucleated RBC 0.000 Nucleated RBC % (auto) 0.0 Sodium 129 L Potassium 4.1 Chloride 96 Carbon Dioxide 21 L Anion Gap 16 BUN 45 H Creatinine 3.84 H Estim Creat Clear Calc 31.0 Estimated GFR 17 POC Glucose 192 H 166 H Fasting Glucose 163 H Calcium 7.7 L Phosphorus Blood Type Antibody Screen Crossmatch 09/14/24 07:12 WBC RBC Hgb Hct MCV MCH MCHC RDW Plt Count MPV Absolute Nucleated RBC Nucleated RBC % (auto) Sodium Potassium Chloride Carbon Dioxide Anion Gap BUN Creatinine Estim Creat Clear Calc Estimated GFR POC Glucose 151 H Fasting Glucose Calcium Phosphorus Blood Type Antibody Screen Crossmatch Microbiology Microbiology Results: Microbiology 08/29/24 14:03 Blood - Venous Blood Culture - Final No growth after 5 days. 08/29/24 14:03 Blood - Venous Blood Culture - Final No growth after 5 days. 08/29/24 Unknown Urine clean catch - Clean Catch Midstream Urine Culture - Final No growth. Procedures Date of Service Date of Service: 09/14/24 Assessment & Plan Assessment and plan (1) Acute renal failure: Status: Acute (2) MERLIN (acute kidney injury): Status: Acute (3) CKD (chronic kidney disease) stage 3, GFR 30-59 ml/min: Status: Acute Plan Patient initially with MERLIN on chronic proteinuric CKD Most likely CKD 2/2 diabetic nephropathy at baseline, MERLIN on CKD likely tubular injury, along with natural progression of renal disease likely entering ESRD Unlikely AIN given lack of RBCs in urine tested positive for cocaine, cocaine-induced injury may have also been contributory HD M, W, F (received yesterday) patient remains fluid overloaded but continues to maintain manageable fluid status with HD, non-oliguric in last 24 hours H&H is 7.4 and 23.9 today, unlikely related to CKD given intermittent precipitous/acute drops, procrit 10,000 units administered 09/13 slight metabolic acidosis with serum bicarb of 21 potassium within normal limits Calcium 7.7, PTH 746. Calcitriol 0.25mg daily Phosphorous elevated at 05/08, calcium acetate 667mg x2 pills TID with meals patient remains fluid-overloaded, will remove 2-3L as tolerated with HD (Mon, Wed, Fri) patient has permacath (right IJ) in place plan to start outpatient dialysis with [facility] once patient has rehab placement Continue close monitoring of electrolytes, blood pressure, urine output Will continue to follow. Will discuss/arrange renal transplant eval referral as appropriate once patient is discharged from the hospital. Discussed with Dr Yañez Time Spent With Patient Time: Total time managing care of this patient today ____ minutes. Progress Note: Quality Stroke Does the patient have a stroke diagnosis?: No
[2024-09-14 11:32] LABS: Glucose, Whole Blood 200 mg/dL (60-115)
[2024-09-14] MEDS: oxyCODONE HCl Immed Release 5 MG TABLET PO ×2 (13:40→21:10)
[2024-09-14 16:29] LABS: Glucose, Whole Blood 180 mg/dL (60-115)
[2024-09-14] MEDS: Throat Lozenge, Medicated LOZENGE 1 LOZENGE MUCOUS MEM ×2 (18:51→21:09)
[2024-09-14 21:06] LABS: Glucose, Whole Blood 95 mg/dL (60-115)
[2024-09-14] MEDS: Albuterol/Iprat 2.5/0.5MG 3 ML AMPUL.NEB INHALE (22:14)
[2024-09-15] VITALS (13 sets, daily range): BP systolic 80–127; BP diastolic 50–76; PULSE 91–147; RESP 17–20; TEMP 36.1–37.6; O2SAT 91–100
[2024-09-15] MEDS: Omeprazole 40 MG CAPSULE.DR PO (05:57)
[2024-09-15] MEDS: oxyCODONE HCl Immed Release 5 MG TABLET PO ×2 (05:57→16:36)
--- NOTE | 2024-09-15 07:00 | CA_ITS ---
Transthoracic Echocardiogram Patient (Last, First, Middle): Deandre Luong M Gender: Male Date of : 1980 Age: 44 Procedure Date: 09/15/2024 Procedure Type: Transthoracic E[place] [facility] [place]: 205.74 cm Weight: 122.02 kg BSA: 2.63 m2 Heart Rate: bpm BP: 94 / 65 mmHg Lean Manager: Referring MD: Fabio Whitten MD Symptoms: pericarditis, assess for effusion Study Quality: Fair ECG Rhythm: Atrial Fibrillation Conclusions: - Normal left ventricular cavity size. There is mildly increased left ventricular wall thickness. The left ventricular systolic function is mildly decreased. The visually estimated ejection fraction is between 40-45%. - There is a small to moderate circumferential pericardial effusion. There is echo density seen in the pericardial space consistent with fibrinous strands. There is a moderate pleural effusion. There are no definitive echocardiographic findings of tamponade physiology. Findings to Left Ventricle Normal left ventricular cavity size. There is mildly increased left ventricular wall thickness. The left ventricular systolic function is mildly decreased. The visually estimated ejection fraction is between 40-45%. Diastolic function is indeterminate on the basis of available data. Tricuspid Valve Significantly elevated right atrial pressure. Venous The inferior vena cava is dilated and collapses less than 50% with inspiration. Pericardium/Pleural There is a small to moderate circumferential pericardial effusion. There is echo density seen in the pericardial space consistent with fibrinous strands. There is a moderate pleural effusion. There are no definitive echocardiographic findings of tamponade physiology. Prior Study Comparison Changes noted compared to prior study. Small to moderate pericardial effusion noted. Measurements 2D Linear Measurements IVSd: 1.20 0.6-0.9/0.6-1.0 cm LVIDd: 4.37 3.9-5.3/4.2-5.9 cm LVIDd Index: 1.66 2.4-3.2/2.2-3.1 cm/m2 LVIDs: 3.65 2.0-3.6 cm LVPWd: 1.22 0.7-1.1 cm LV Mass: 238.78 67-162/88-224 g LV Mass Index: 90.79 43-95/49-115 g/m2 Tricuspid Valve RA Press: 15.00 Updated in Other Vendor System with Status of Final Fabio Whitten MD electronically signed on 09/15/2024 6:12:19 PM with status of Final
[2024-09-15 07:32] LABS: Glucose, Whole Blood 120 mg/dL (60-115)
--- NOTE | 2024-09-15 07:46 | ECG_ITS ---
Test Reason : rhythm change Blood Pressure : / mmHG Vent. Rate : 139 BPM Atrial Rate : 139 BPM P-R Int : 142 ms QRS Dur : 092 ms QT Int : 304 ms P-R-T Axes : 000 043 243 degrees QTc Int : 462 ms Atrial flutter with 2:1 block Nonspecific T wave abnormality Abnormal ECG When compared with ECG of 07-MAY-2023 14:22, Vent. rate has increased BY 51 BPM Atrial flutter present Referred By: César Geller Electronically Signed By:Fabio Whitten
[2024-09-15] MEDS: Lactulose 20 GM/30 ML SOLUTION PO (08:19)
[2024-09-15] MEDS: Buprenorphine/Naloxone 8/2 mg FILM 1 FILM SUBLINGUAL ×2 (08:19→15:08)
[2024-09-15] MEDS: Nicotine 14 MG PATCH.TD24 TRANSDERMA (08:20)
[2024-09-15] MEDS: 0.9 % Sodium Chloride Flush 3 ML SYRINGE IVFLUSH ×2 (08:20→15:09)
[2024-09-15] MEDS: Nicotine Polacrilex 2 MG GUM BUCCAL (08:20)
[2024-09-15] MEDS: Psyllium seed 3.7 GM PACKET PO (08:20)
[2024-09-15] MEDS: calcitrioL 0.25 MCG CAPSULE 0.5 MCG PO (08:20)
[2024-09-15] MEDS: Multivitamin TABLET 1 TAB PO (08:20)
[2024-09-15] MEDS: Calcium Acetate 667 MG CAPSULE 1334 MG PO ×3 (08:20→16:36)
[2024-09-15] MEDS: Docusate Sodium 100 MG CAPSULE PO (08:20)
--- NOTE | 2024-09-15 08:25 | P.PNNP_ITS ---
Subjective Subjective Date of Service: 09/15/24 Interval history: 44 y/o male with a medical history of HTN, HLD, CKD3, polysubstance dependence, PVD. 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 He presented on 08/29 with weakness, abdominal bloating, lower extremity edema/pain. creatinine 6.79 on 08/29 (previous creatinine 2.02 from 1 year ago), started HD on 08/30; creatinine now ranging between 3.16 and 5.76 with intermittent HD GFR ranging from 13-21 over last week urine prot/creat ratio 7.441 on 08/29. No blood in urine from 08/29 CT abd/pelvis on 08/29 showed no hydronephrosis, kidneys/ureters unremarkable, showed diffuse anasarca and pulmonary edema. Liver unremarkable. TTE on 09/03 without obvious valvular pathology Pt developed episodes of atrial flutter on tele and had mild pericardial friction rub 09/15 a.m. - asymptomatic patient has permacath (right IJ) in place patient has spot at [facility], was scheduled for 09/13 outpatient start but unfortunately still waiting for rehab placement pt denies changes/concerns today - breathing comfortable, no dysuria, no tremors/cramping/nausea/itching UOP 550mL/24hr Pt states he would like to pursue renal transplant if needed, as multiple family members have offered to donate to him. Physical Exam 2 Vital Signs: Vital Signs: Last Vital Signs Temp 98.3 F 09/15/24 11:29 Pulse 146 H 09/15/24 11:29 Resp 20 09/15/24 11:29 BP 94/65 09/15/24 11:55 Pulse Ox 98 09/15/24 11:11 O2 Del Method Nasal Cannula 09/15/24 11:11 O2 Flow Rate 2 09/15/24 11:11 BMI result Body Mass Index 39.8 Const: General: no acute distress, alert and awake Resp: Effort & Inspection: normal respiratory effort and able to speak in complete sentences Auscultation: clear to auscultation bilaterally Cardio: Rate: regular rate Rhythm: regular rhythm Heart sounds: S1 normal heart sound present and S2 normal heart sound present GI: Other: anasarca, pitting edema in lower abdomen Palpation (GI): Soft to palpation and nontender : General: Yes no CVA tenderness Back/Spine/Pelvis: Back: no CVA tenderness Skin: Lesions: no lesions Rashes: no rashes Neuro: Other: no tremor or myoclonus Extrem: General: Yes edema (upper lower extremities with trace to +1 pitting edema ) Objective Data Labs 09/14/24 06:45 09/14/24 06:45 Labs: Laboratory Results - last 24 hr 09/13/24 09/14/24 09/14/24 11:13 16:22 21:00 POC Glucose 180 H 95 Blood Type O Positive Antibody Screen NEGATIVE Crossmatch See Detail 09/15/24 07:08 POC Glucose 120 H Blood Type Antibody Screen Crossmatch Microbiology Microbiology Results: Microbiology 08/29/24 14:03 Blood - Venous Blood Culture - Final No growth after 5 days. 08/29/24 14:03 Blood - Venous Blood Culture - Final No growth after 5 days. 08/29/24 Unknown Urine clean catch - Clean Catch Midstream Urine Culture - Final No growth. Procedures Date of Service Date of Service: 09/15/24 Assessment & Plan Assessment and plan (1) Acute renal failure: Status: Acute (2) MERLIN (acute kidney injury): Status: Acute (3) CKD (chronic kidney disease) stage 3, GFR 30-59 ml/min: Status: Acute Plan Patient initially with MERLIN on chronic proteinuric CKD Most likely CKD 2/2 diabetic nephropathy at baseline, MERLIN on CKD likely tubular injury, along with natural progression of renal disease likely ESRD Unlikely AIN given lack of RBCs in urine tested positive for cocaine, cocaine-induced injury may have also been contributory mild pericardial friction rub unlikely to be a result of uremia given patient has been on dialysis in the hospital for some time now - per cardiology they will get an echo to check for effusion HD M, W, F (plan for HD today) patient remains fluid overloaded but continues to maintain manageable fluid status with HD, non-oliguric in last 24 hours H&H is 7.4 and 23.9 today, unlikely related to CKD given intermittent precipitous/acute drops, procrit 10,000 units administered 09/13 slight metabolic acidosis with serum bicarb of 21 potassium within normal limits Calcium 7.7, PTH 746. Calcitriol 0.25mg daily Phosphorous elevated at 7/6, calcium acetate 667mg x2 pills TID with meals patient remains fluid-overloaded, will remove 2-3L as tolerated with HD (Mon, Wed, Fri) patient has permacath (right IJ) in place plan was in place to start outpatient dialysis with [facility]- on hold due to atrial flutter and pericardial friction rub and need for further monitoring/stabilization Continue close monitoring of electrolytes, blood pressure, urine output Will continue to follow. Will discuss/arrange renal transplant eval referral as appropriate once patient is discharged from the hospital. Discussed with Dr Cagle Time Spent With Patient Time: Total time managing care of this patient today ____ minutes. Progress Note: Quality Stroke Does the patient have a stroke diagnosis?: No
--- NOTE | 2024-09-15 10:57 | PM.CNCAR ---
History of Present Illness History of Present Illness Date of Service: 09/15/24 Requesting physician: Liborio Ro Chief complaint: Atrial flutter Narrative: [age] year gentleman who we have been asked to see for atrial flutter. He has multiple complex medical issues ongoing. He came with acute kidney injury and has been started on hemodialysis during this hospitalization. He has background of polysubstance abuse. He also has background of CVA in the past and diabetic wet gangrene of the foot. He has been noticed to be tachycardic on telemetry and EKG and telemetry has confirm two-to-one atrial flutter. He is not feeling any arrhythmia. His previous echocardiography has shown EF of 40%. He has been in and out of atrial flutter but has been in atrial flutter for 4-5 hours as per telemetry at this point. [facility] Past Medical History Medical History (Updated 09/15/24 @ 12:23 by Fabio Whitten MD) Constipation Callus of foot Seizure Polysubstance abuse CKD (chronic kidney disease) stage 3, GFR 30-59 ml/min Foot osteomyelitis, left Amputation of toe of right foot Diabetic ulcer of right foot Hyperglycemia due to type 2 diabetes mellitus Renal failure Sleep apnea Diabetes HTN (hypertension) Surgical History Surgical History History of surgical procedure (~04/24/23) Social History Social History Household Members: Spouse and Family Household Members Other:: Pt and live with his mother Housing: Apartment Do you presently have visiting nurse or other home services: No Alcohol intake: never Comment: camera in room d/t patient mom using vape in room and patient w/verify rep Patient Tobacco Use Status: Current everyday Tobacco user Tobacco use type: Cigarette Years Smoked: 33 Smoked in Last 30 Days: Yes e-Cigarette/Vaping Use: Currently Using Frequency of e-Cigarette/Vaping Use: 4/5 x per day Patient Interested in Nicotine Replacement: Yes Patient Given Instructions on How to Stop Smoking: Yes Date Education Initiated: 08/29/24 Substance Use Type: Heroin Substance Use Type Other:: sniffs heroin 2-3 bundles/day per pt Substance Use Frequency: Daily Last Used Substance: Hours (ago) Currently Displaying Signs/Symptoms of Drug Intoxication Withdrawal: No Any prior treatment program specific to substance use: No Have you been hit, kicked, punched, or otherwise hurt by someone within the past year? If so, by whom?: No Do you feel safe in your current relationship?: Yes Is there a partner from a previous relationship who is making you feel unsafe now?: No Are you made to feel afraid or neglected: No [facility] Healthcare Practices: [employer] Advance Directives: No Advance Directives Information Provided: No Do you have a plan to hurt others: No Plan Recently lost weight without trying: Yes How much weight loss: Unsure Eating poorly because of decreased appetite: Yes Nutrition screen score: 5 Nutrition Risks: No Nutritional Risk Poor oral hygiene: No service: No Meds Allergies Allergy/AdvReac Type Severity Reaction Status Date / Time No Known Allergies Allergy Verified 08/29/24 13:00 [No Known Allergies*] Active Medications: Current Medications Acetaminophen (Acetaminophen 325 Mg Tablet) 975 mg PO Q6H PRN PRN Reason: Pain, Mild (Pain Scale 1-3) Albuterol Sulfate (Albuterol Sulfate 90 Mcg 8 Gm Inhaler) 2 puff INHALE RQ6H PRN PRN Reason: sob Last Admin: 09/14/24 13:38 Dose: 2 puff Albuterol/Ipratropium (Albuterol/Iprat 2.5/0.5mg 3 Ml Ampul.Neb) 3 ml INHALE Q4H PRN PRN Reason: Shortness of Breath/Wheezing Last Admin: 09/14/24 22:14 Dose: 3 ml Amiodarone HCl (Amiodarone Hcl 200 Mg Tablet) 400 mg PO BID [facility] Benzocaine (Throat Lozenge, Medicated Lozenge) 1 lozenge MUCOUS MEM Q2H PRN PRN Reason: Sore Throat Last Admin: 09/14/24 21:09 Dose: 1 lozenge Buprenorphine/Naloxone (Buprenorphine/Naloxone 8/2 Mg Film) 1 film SUBLINGUAL TID@0800,1400,2000 [facility] Last Admin: 09/15/24 08:19 Dose: 1 film Calcitriol (Calcitriol 0.25 Mcg Capsule) 0.5 mcg PO DAILY [facility] Last Admin: 09/15/24 08:20 Dose: 0.5 mcg Calcium Acetate (Calcium Acetate 667 Mg Capsule) 1,334 mg PO TIDWM [facility] Last Admin: 09/15/24 08:20 Dose: 1,334 mg Calcium Carbonate (Calcium Carbonate 750 Mg Tab.Chew) 750 mg PO Q4H PRN PRN Reason: Heartburn Last Admin: 09/05/24 19:43 Dose: 750 mg Docusate Sodium (Docusate Sodium 100 Mg Capsule) 100 mg PO BID [facility] Last Admin: 09/15/24 08:20 Dose: 100 mg Glucose (Glucose Gel 15 Gm Gel..Gram.) 15 gm PO Q15M PRN; Protocol PRN Reason: per Hypoglycemia Standing Ord. Heparin Sodium (Porcine) (Heparin Sodium,Porcine 5,000 Unit/Ml Vial) 5,000 unit SUBCUT Q12H [facility] Last Admin: 09/05/24 12:31 Dose: 5,000 unit Heparin Sodium (Porcine) (Heparin Sodium,Porcine 5,000 Unit/Ml Vial) 5,000 unit INTRACATH MOWEFR@1645 [facility] Last Admin: 09/13/24 17:03 Dose: Not Given Dextrose (D10) 250 mls @ 750 mls/hr IV Q15M PRN; Protocol PRN Reason: per Hypoglycemia Standing Ord. Insulin Human Lispro (Insulin Lispro 100 Unit/Ml 3 Ml Vial) 0 unit SUBCUT QIDACHS [facility]; Protocol Last Admin: 09/15/24 08:19 Dose: Not Given Lactulose (Lactulose 20 Gm/30 Ml Solution) 20 gm PO BID [facility] Last Admin: 09/15/24 08:19 Dose: 20 gm Melatonin (Melatonin 3 Mg Tablet) 6 mg PO BEDTIME PRN PRN Reason: Insomnia Last Admin: 09/11/24 00:26 Dose: 6 mg Methocarbamol (Methocarbamol 500 Mg Tablet) 500 mg PO TID PRN PRN Reason: Muscle Spasm Last Admin: 09/12/24 19:48 Dose: 500 mg Multivitamins/Vitamin C (Multivitamin Tablet) 1 tab PO DAILY [facility] Last Admin: 09/15/24 08:20 Dose: 1 tab Nicotine (Nicotine 14 Mg Patch.Td24) 14 mg TRANSDERMA DAILY [facility] Last Admin: 09/15/24 08:20 Dose: 14 mg Nicotine Polacrilex (Nicotine Polacrilex 2 Mg Gum) 2 mg BUCCAL Q1H PRN PRN Reason: Nicotine Cravings Last Admin: 09/15/24 08:20 Dose: 2 mg Omeprazole (Omeprazole 40 Mg Capsule.Dr) 40 mg PO DAILY@0630 [facility] Last Admin: 09/15/24 05:57 Dose: 40 mg Ondansetron HCl (Ondansetron Hcl 4 Mg/2 Ml Vial) 4 mg IVPUSH Q8H PRN PRN Reason: Nausea and Vomiting Last Admin: 08/31/24 11:09 Dose: 4 mg Oxycodone HCl (Oxycodone Hcl Immed Release 5 Mg Tablet) 5 mg PO Q4H PRN PRN Reason: Pain, Severe (Pain Scale 7-10) Last Admin: 09/15/24 05:57 Dose: 5 mg Psyllium Hydrophilic Mucilloid (Psyllium Seed 3.7 Gm Packet) 3.7 gm PO DAILY [facility] Last Admin: 09/15/24 08:20 Dose: 3.7 gm Sodium Chloride (0.9 % Sodium Chloride Flush 3 Ml Syringe) 3 ml IVFLUSH QSHIFT [facility] Last Admin: 09/15/24 08:20 Dose: 3 ml Physical Exam Vital Signs: Vital Signs: Last Vital Signs Temp 97.0 F 09/15/24 08:00 Pulse 133 H 09/15/24 08:00 Resp 20 09/15/24 08:00 BP 117/66 09/15/24 08:00 Pulse Ox 92 09/15/24 08:00 O2 Del Method Room Air 09/15/24 08:00 O2 Flow Rate 2 09/14/24 12:00 BMI result Body Mass Index 39.8 GENERAL APPEARANCE: in no acute distress, morbidly obese. NECK: no carotid bruit, no jugular venous distention. SKIN: no suspicious lesions, warm and dry. HEART: no murmurs, regular rate and rhythm. Tachycardic. Pericardial friction rub. LUNGS: clear to auscultation bilaterally. ABDOMEN: soft, nontender. PERIPHERAL PULSES: equal. NEUROLOGIC: No gross deficits, AAO X 3 Objective Labs and Meds 09/14/24 06:45 09/14/24 06:45 Lab results: Laboratory Results - last 24 hr 09/13/24 09/14/24 09/14/24 11:13 11:16 16:22 POC Glucose 200 H 180 H Blood Type O Positive Antibody Screen NEGATIVE Crossmatch See Detail 09/14/24 09/15/24 21:00 07:08 POC Glucose 95 120 H Blood Type Antibody Screen Crossmatch Assessment and Plan (1) Atrial flutter: Status: Acute Plan Atrial flutter in a young gentleman with polysubstance abuse, mild cardiomyopathy, acute renal failure now on hemodialysis on background of previous stroke. 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 I would avoid anticoagulation currently. We can discuss with Nephrology also. Adding amiodarone 400 mg twice a day to see if we can convert him to sinus rhythm. He has mild cardiomyopathy. I am hopeful that with amiodarone he will convert to sinus rhythm. This is not a long-term drug for him due to young age. Thank you for allowing me to participate in the care of your patient. Please feel free to contact me if you have any questions. Procedures Date of Service Date of Service: 09/15/24
[2024-09-15] MEDS: Amiodarone HCL 200 MG TABLET 400 MG PO ×2 (11:06→23:09)
--- NOTE | 2024-09-15 12:27 | HO.PM.IMPN ---
Subjective Subjective Date of Service: 09/15/24 Interval History: Seen and evaluated this morning Hb at 7.3 after 1 more unit of blood Creatinine improved to 3.4 post HD rhythm changed to A.flutter w RvR No other overnight events Review of Systems Review of Systems: Yes all other systems are reviewed and are negative Physical Exam Vital Signs: Vital Signs: Last Vital Signs Temp 98.6 F 09/15/24 11:46 Pulse 144 H 09/15/24 11:46 Resp 20 09/15/24 11:46 BP 94/65 09/15/24 11:55 Pulse Ox 98 09/15/24 11:11 O2 Del Method Nasal Cannula 09/15/24 11:11 O2 Flow Rate 2 09/15/24 11:11 BMI result Body Mass Index 39.8 Const: Other: Constitutional : Awake, interactive, not in distress Neck : Normal inspection, Supple Cardiovascular : irregular irregular , no JVP, no lower extremity edema Respiratory : good bilateral air entry, no crackles, wheezes or rhonchi Gastrointestinal: soft, lax, Normal bowel sounds, Non tender Skin : Warm, Dry, multiple skin picking gabriel, BKA right, LLE callus with dry skin, Perma-catheter in place Neurological : Alert & oriented x3, No focal deficit Objective Data Active Medications Acetaminophen (Acetaminophen 325 Mg Tablet) 975 mg PO Q6H PRN PRN Reason: Pain, Mild (Pain Scale 1-3) Albuterol Sulfate (Albuterol Sulfate 90 Mcg 8 Gm Inhaler) 2 puff INHALE RQ6H PRN PRN Reason: sob Last Admin: 09/14/24 13:38 Dose: 2 puff Documented By: ABEL Albuterol/Ipratropium (Albuterol/Iprat 2.5/0.5mg 3 Ml Ampul.Neb) 3 ml INHALE Q4H PRN PRN Reason: Shortness of Breath/Wheezing Last Admin: 09/14/24 22:14 Dose: 3 ml Documented By: NYA Amiodarone HCl (Amiodarone Hcl 200 Mg Tablet) 400 mg PO BID [facility] Last Admin: 09/15/24 11:06 Dose: 400 mg Documented By: CARLO Benzocaine (Throat Lozenge, Medicated Lozenge) 1 lozenge MUCOUS MEM Q2H PRN PRN Reason: Sore Throat Last Admin: 09/14/24 21:09 Dose: 1 lozenge Documented By: NYA Buprenorphine/Naloxone (Buprenorphine/Naloxone 8/2 Mg Film) 1 film SUBLINGUAL TID@0800,1400,2000 [facility] Last Admin: 09/15/24 08:19 Dose: 1 film Documented By: CARLO Calcitriol (Calcitriol 0.25 Mcg Capsule) 0.5 mcg PO DAILY [facility] Last Admin: 09/15/24 08:20 Dose: 0.5 mcg Documented By: CARLO Calcium Acetate (Calcium Acetate 667 Mg Capsule) 1,334 mg PO TIDWM [facility] Last Admin: 09/15/24 11:06 Dose: 1,334 mg Documented By: CARLO Calcium Carbonate (Calcium Carbonate 750 Mg Tab.Chew) 750 mg PO Q4H PRN PRN Reason: Heartburn Last Admin: 09/05/24 19:43 Dose: 750 mg Documented By: VALENTINE Docusate Sodium (Docusate Sodium 100 Mg Capsule) 100 mg PO BID [facility] Last Admin: 09/15/24 08:20 Dose: 100 mg Documented By: CARLO Glucose (Glucose Gel 15 Gm Gel..Gram.) 15 gm PO Q15M PRN; Protocol PRN Reason: per Hypoglycemia Standing Ord. Heparin Sodium (Porcine) (Heparin Sodium,Porcine 5,000 Unit/Ml Vial) 5,000 unit SUBCUT Q12H [facility] Last Admin: 09/05/24 12:31 Dose: 5,000 unit Documented By: ROSCOE Heparin Sodium (Porcine) (Heparin Sodium,Porcine 5,000 Unit/Ml Vial) 5,000 unit INTRACATH MOWEFR@1645 [facility] Last Admin: 09/13/24 17:03 Dose: Not Given Documented By: STEFANI Non-Admin Reason: given in dialysis Dextrose (D10) 250 mls @ 750 mls/hr IV Q15M PRN; Protocol PRN Reason: per Hypoglycemia Standing Ord. Insulin Human Lispro (Insulin Lispro 100 Unit/Ml 3 Ml Vial) 0 unit SUBCUT QIDACHS [facility]; Protocol Last Admin: 09/15/24 08:19 Dose: Not Given Documented By: CARLO Non-Admin Reason: No Insulin Coverage Lactulose (Lactulose 20 Gm/30 Ml Solution) 20 gm PO BID [facility] Last Admin: 09/15/24 08:19 Dose: 20 gm Documented By: CARLO Melatonin (Melatonin 3 Mg Tablet) 6 mg PO BEDTIME PRN PRN Reason: Insomnia Last Admin: 09/11/24 00:26 Dose: 6 mg Documented By: JYOTI Methocarbamol (Methocarbamol 500 Mg Tablet) 500 mg PO TID PRN PRN Reason: Muscle Spasm Last Admin: 09/12/24 19:48 Dose: 500 mg Documented By: ZAIRE Multivitamins/Vitamin C (Multivitamin Tablet) 1 tab PO DAILY [facility] Last Admin: 09/15/24 08:20 Dose: 1 tab Documented By: CARLO Nicotine (Nicotine 14 Mg Patch.Td24) 14 mg TRANSDERMA DAILY [facility] Last Admin: 09/15/24 08:20 Dose: 14 mg Documented By: CARLO Nicotine Polacrilex (Nicotine Polacrilex 2 Mg Gum) 2 mg BUCCAL Q1H PRN PRN Reason: Nicotine Cravings Last Admin: 09/15/24 08:20 Dose: 2 mg Documented By: CARLO Omeprazole (Omeprazole 40 Mg Capsule.Dr) 40 mg PO DAILY@0630 [facility] Last Admin: 09/15/24 05:57 Dose: 40 mg Documented By: NYA Ondansetron HCl (Ondansetron Hcl 4 Mg/2 Ml Vial) 4 mg IVPUSH Q8H PRN PRN Reason: Nausea and Vomiting Last Admin: 08/31/24 11:09 Dose: 4 mg Documented By: DENNY Oxycodone HCl (Oxycodone Hcl Immed Release 5 Mg Tablet) 5 mg PO Q4H PRN PRN Reason: Pain, Severe (Pain Scale 7-10) Last Admin: 09/15/24 05:57 Dose: 5 mg Documented By: NYA Psyllium Hydrophilic Mucilloid (Psyllium Seed 3.7 Gm Packet) 3.7 gm PO DAILY [facility] Last Admin: 09/15/24 08:20 Dose: 3.7 gm Documented By: CARLO Sodium Chloride (0.9 % Sodium Chloride Flush 3 Ml Syringe) 3 ml IVFLUSH QSHIFT [facility] Last Admin: 09/15/24 08:20 Dose: 3 ml Documented By: CARLO Labs 09/14/24 06:45 09/14/24 06:45 Labs: Laboratory Results - last 24 hr 09/13/24 09/14/24 09/14/24 11:13 16:22 21:00 POC Glucose 180 H 95 Blood Type O Positive Antibody Screen NEGATIVE Crossmatch See Detail 09/15/24 07:08 POC Glucose 120 H Blood Type Antibody Screen Crossmatch Assessment and Plan (1) Atrial flutter: Status: Acute (2) Need for acute hemodialysis: Status: Acute (3) Opioid use disorder, severe, dependence: Status: Acute Plan 44M PMH hypertension, hyperlipidemia, diabetes, CKD 3, polysubstance dependence, history of peripheral vascular disease presented with weakness found to have angelo, anemia, leukocysotis, acidosis acute metabolic encephalopathy due to uremic encephalopathy due to ANGELO on CKD 3 complicated by acute metabolic acidosis, mentation improved back to baseline Cr level stable 3-4 and making urine up to 500cc\daily no plan for biopsy as likely diabetic nephropathy catheter placement 08/30/24 and started dialysis, now has PermaCath patient has spot at [facility], was scheduled for 09/13 outpatient start but still waiting for rehab placement Patient would like to pursue renal transplant if possible, as multiple family members have offered to donate to him. 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, hold AC Acute hypocalcemia replacement given Elevated PTH, started Calcitriol Hx drug abuse U.Tox +ve for Cocaine, Opiates, Fentanyl and Oxy Addiciton team following Methadone weaned off, tolerating Suboxone now PRN Oxycodone repeat Urine tox; for placement purpose Diabetes II Insulin sliding scale debility pt appreciated - plan for STR at SNF if patient able to transfer with minimal assist prior SNF transfer will change plan for home with services DVT prophylaxis Heparin SC Full code reason for continued hospitalization: Atrial flutter with RvR for rate and rhythm control Quality Stroke Does the patient have a stroke diagnosis?: No VTE Prior VTE?: No VTE Risk Level:: Medical - moderate - high VTE Device Contraindication: N/A - Device Ordered VTE Drug Contraindication: Treatment Not Indicated
[2024-09-15 14:42] LABS: Glucose, Whole Blood 147 mg/dL (60-115)
[2024-09-15] MEDS: Magnesium Sulfate/H2O 2 GM/50 ML PIGGYBACK IV (15:05)
--- NOTE | 2024-09-15 15:13 | MHC.CM.PN ---
EMR reviewed and per MD rounds, pt is not medically cleared for discharge due to management of atrial flutter with RVR, and STR placement search is ongoing, no current STR bed offers.
[2024-09-15 16:35] LABS: Glucose, Whole Blood 169 mg/dL (60-115)
[2024-09-15] MEDS: Insulin Lispro 100 UNIT/ML 3 ML VIAL SUBCUT ×2 (16:37→23:25)
[2024-09-15] MEDS: Metoprolol Tartrate 25 MG TABLET PO (16:58)
[2024-09-15] MEDS: Albumin Human 25 % 100 ML IV (16:59)
[2024-09-15 17:39] LABS: HCV Log PCR <1.18 NOT DETECTED Log IU/mL (NOT DETECTED); HepC Viral Load <15 NOT DETECTED IU/mL (NOT DETECTED)
--- NOTE | 2024-09-15 19:47 | PM.EVENT ---
Event Note Date of Service: 09/15/24 Event Note: Nurse reported hypotension. Patient is ESRD on hemodialysis. Will order colloid resuscitation. No sepsis. Closely monitor Time Spent With Patient Time: Total time managing care of this patient today ____ minutes.
[2024-09-15] MEDS: Albumin Human 25 % 100 ML 133.33 ML IV ×2 (20:30→21:36)
[2024-09-15] MEDS: Throat Lozenge, Medicated LOZENGE 1 LOZENGE MUCOUS MEM (20:30)
[2024-09-15 20:33] LABS: Glucose, Whole Blood 207 mg/dL (60-115)
[2024-09-15] MEDS: Albuterol/Iprat 2.5/0.5MG 3 ML AMPUL.NEB INHALE (20:54)
[2024-09-15 23:18] LABS: Glucose, Whole Blood 162 mg/dL (60-115)
[2024-09-15] MEDS: Lactated Ringers 500 ML 125 ML IV (23:29)
[2024-09-16] VITALS (10 sets, daily range): BP systolic 84–123; BP diastolic 51–76; PULSE 74–141; RESP 16–20; TEMP 36.2–37.6; O2SAT 89–98
--- NOTE | 2024-09-16 | ECG_ITS ---
Test Reason : eleavted troponin Blood Pressure : / mmHG Vent. Rate : 119 BPM Atrial Rate : 267 BPM P-R Int : 000 ms QRS Dur : 086 ms QT Int : 280 ms P-R-T Axes : 000 046 069 degrees QTc Int : 393 ms Atrial flutter with variable A-V block Nonspecific T wave abnormality Abnormal ECG When compared with ECG of 15-SEP-2024 07:48, Previous ECG has undetermined rhythm, needs review Non-specific change in ST segment in Inferior leads Nonspecific T wave abnormality, worse in Anterior leads Referred By: Erika Duvall Electronically Signed By:Fabio Whitten
[2024-09-16 00:11] LABS: MANUAL DIFF FLAG NO
[2024-09-16 00:16] LABS: Basophils Percent Auto 0.3 % (0-2); Eosinophils Absolute Auto 0.2 X10*3/uL (0.0-0.4); Eosinophils Percent Auto 1.5 % (0-4); Hematocrit 24.1 % (42.0-52.0); Hemoglobin 7.6 g/dl (14.0-18.0); Imm Gran Abs Auto 0.06 X10*3/uL (0.00-0.03); Imm Gran Pct Auto 0.5 % (0.0-0.4); Lymphocytes Percent Auto 7.5 % (20-40); Mean Corpuscular HGB Conc 31.5 g/dl (31.0-36.0); Mean Corpuscular Hemoglobin 29.2 pg (27.0-33.0); Mean Corpuscular Volume 92.7 fL (80.0-98.0); Monocytes Percent Auto 7.8 % (2-11); Neutrophils Absolute Auto 10.9 x10*3/uL (2.0-8.3); Neutrophils Percent Auto 82.4 % (45-73); Platelet Count 284 X10*3/uL (160-400); Red Cell Distribution Width 16.8 % (11.0-16.0); White Blood Count 13.3 X10*3/uL (4.8-10.8)
[2024-09-16 00:26] LABS: Lactic Acid 1.3 mmol/L (0.5-2.0)
[2024-09-16 00:36] LABS: Alanine Aminotransferase 10 U/L (0-40); Albumin Level 2.3 g/dL (3.5-5.0); Alkaline Phosphatase 250 U/L (39-117); Anion Gap 13 (12-20); Aspartate Amino Transferase 32 U/L (5-37); Bilirubin Total 0.5 mg/dL (0.0-1.0); Blood Urea Nitrogen 43 mg/dL (9-16); Calcium 7.3 mg/dL (8.4-10.2); Carbon Dioxide 27 mmol/L (22-29); Chloride 96 mmol/L (96-108); Creatinine Clr Calc Pharmacy 30.5; Estimated Glomerular Filt Rate 17; Glucose Random 169 mg/dL (60-115); Potassium 3.9 mmol/L (3.3-5.1); Sodium 132 mmol/L (135-145); Total Protein 6.7 g/dL (6.5-8.0)
[2024-09-16 00:41] LABS: Troponin-I High Sensitivity 974.2 ng/L (<3.5-35.0)
--- NOTE | 2024-09-16 00:46 | PM.EVENT ---
Event Note Date of Service: 09/16/24 Event Note: Lab reported elevated troponin. Patient asymptomatic and without chest pain. Likely type 2 in the setting of hypotension and RVR. Obtaining EKG. Ordered 1 dose of therapeutic Lovenox and aspirin. Appreciate cardiology. Trend troponin Time Spent With Patient Time: Total time managing care of this patient today ____ minutes.
--- NOTE | 2024-09-16 01:00 | PC.NURSE ---
pt hypotensive in 80's, hr 130's. md aware with new orders albumin 25 G x2 given, LR 500 ml infused over course of 4 hours. Labs ordered with abnormal troponin of 974.2 reported to MD. EKG obtained. pt remains asymptomatic. Confirmed with md anderson to give amiodarone with low bp's.
[2024-09-16] MEDS: Aspirin 325 MG TABLET PO (01:36)
[2024-09-16] MEDS: Throat Lozenge, Medicated LOZENGE 1 LOZENGE MUCOUS MEM ×2 (01:36→03:48)
[2024-09-16 01:41] LABS: INTERNATIONAL NORM RATIO 1.2 (0.9-1.1); Prothrombin Time 13.8 SEC (10.9-12.4)
[2024-09-16 01:44] LABS: Partial Thromboplastin Time 25.5 SEC (26.0-36.8)
[2024-09-16] MEDS: Enoxaparin Sodium 120 MG/0.8 ML SYRINGE SUBCUT (02:19)
[2024-09-16] MEDS: glucagon HCL 1 MG VIAL 2 MG IVPUSH (05:14)
[2024-09-16] MEDS: 0.9 % Sodium Chloride 500 ML IV (05:20)
[2024-09-16] MEDS: Midodrine HCl 10 MG TABLET PO (05:24)
[2024-09-16] MEDS: Omeprazole 40 MG CAPSULE.DR PO (05:25)
[2024-09-16 06:55] LABS: Hematocrit 25.1 % (42.0-52.0); Hemoglobin 7.8 g/dl (14.0-18.0); Mean Corpuscular HGB Conc 31.1 g/dl (31.0-36.0); Mean Corpuscular Hemoglobin 28.9 pg (27.0-33.0); Mean Platelet Volume 11.4 fL (9.4-12.4); Platelet Count 286 X10*3/uL (160-400); Red Cell Distribution Width 16.7 % (11.0-16.0); White Blood Count 17.3 X10*3/uL (4.8-10.8)
[2024-09-16 07:06] LABS: Anion Gap 15 (12-20); Blood Urea Nitrogen 45 mg/dL (9-16); Calcium 7.7 mg/dL (8.4-10.2); Carbon Dioxide 23 mmol/L (22-29); Chloride 96 mmol/L (96-108); Creatinine Clr Calc Pharmacy 30.7; Estimated Glomerular Filt Rate 17; Glucose Random 190 mg/dL (60-115); Phosphorus 5.5 mg/dL (2.7-4.5); Potassium 4.1 mmol/L (3.3-5.1); Sodium 130 mmol/L (135-145)
[2024-09-16 07:26] LABS: Glucose, Whole Blood 182 mg/dL (60-115)
[2024-09-16] MEDS: Nicotine 14 MG PATCH.TD24 TRANSDERMA (08:08)
[2024-09-16] MEDS: Psyllium seed 3.7 GM PACKET PO (08:09)
[2024-09-16] MEDS: 0.9 % Sodium Chloride Flush 3 ML SYRINGE IVFLUSH ×4 (08:09→20:10)
[2024-09-16] MEDS: Multivitamin TABLET 1 TAB PO (08:09)
[2024-09-16] MEDS: Lactulose 20 GM/30 ML SOLUTION PO ×2 (08:09→20:09)
[2024-09-16] MEDS: Calcium Acetate 667 MG CAPSULE 1334 MG PO ×3 (08:09→17:18)
[2024-09-16] MEDS: Amiodarone HCL 200 MG TABLET 400 MG PO ×2 (08:09→18:28)
[2024-09-16] MEDS: Buprenorphine/Naloxone 8/2 mg FILM 1 FILM SUBLINGUAL ×3 (08:09→20:09)
[2024-09-16] MEDS: calcitrioL 0.25 MCG CAPSULE 0.5 MCG PO (08:09)
[2024-09-16] MEDS: Insulin Lispro 100 UNIT/ML 3 ML VIAL SUBCUT ×3 (08:09→21:47)
[2024-09-16] MEDS: Docusate Sodium 100 MG CAPSULE PO ×2 (08:09→20:09)
--- NOTE | 2024-09-16 08:25 | P.PNNP_ITS ---
Subjective Subjective Date of Service: 09/16/24 Interval history: 44 y/o male with a medical history of HTN, HLD, CKD3, polysubstance dependence, PVD. 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 He presented on 08/29 with weakness, abdominal bloating, lower extremity edema/pain. creatinine 6.79 on 08/29 (previous creatinine 2.02 from 1 year ago), started HD on 08/30; creatinine now ranging between 3.43 and 4.85 with intermittent HD GFR ranging from 13-17 over last week urine prot/creat ratio 7.441 on 08/29. No blood in urine from 08/29 CT abd/pelvis on 08/29 showed no hydronephrosis, kidneys/ureters unremarkable, showed diffuse anasarca and pulmonary edema. Liver unremarkable. TTE on 09/03 without obvious valvular pathology Pt developed episodes of atrial flutter on and had mild pericardial friction rub 09/15 a.m. - asymptomatic hypotensive episode evening of 09/15 - [employer] 09/06, pt asymptomatic, 500cc fluid bolus patient has permacath (right IJ) in place patient has spot at [facility], was scheduled for 09/13 outpatient but now on hold given cardiac complications pt denies changes/concerns today - breathing comfortable, no dysuria, no tremors/cramping/nausea/itching UOP 550mL/24hr Pt states he would like to pursue renal transplant if needed, as multiple family members have offered to donate to him. Physical Exam 2 Vital Signs: Vital Signs: Last Vital Signs Temp 98.8 F 09/16/24 11:19 Pulse 137 H 09/16/24 11:19 Resp 16 09/16/24 11:19 BP 100/63 09/16/24 11:19 Pulse Ox 89 L 09/16/24 11:19 O2 Del Method Room Air 09/16/24 11:19 O2 Flow Rate 2.5 09/16/24 07:21 BMI result Body Mass Index 39.8 Const: General: no acute distress, alert and awake Resp: Effort & Inspection: normal respiratory effort and able to speak in complete sentences Auscultation: clear to auscultation bilaterally Cardio: Rate: regular rate Rhythm: regular rhythm Heart sounds: S1 normal heart sound present, S2 normal heart sound present and Abnormal heart opening sounds (mild pericardial friction rub auscultated) GI: Other: anasarca, pitting edema in lower abdomen Palpation (GI): Soft to palpation and nontender : General: Yes no CVA tenderness Back/Spine/Pelvis: Back: no CVA tenderness Skin: Lesions: no lesions Rashes: no rashes Neuro: Other: no tremor or myoclonus Extrem: General: Yes edema (upper lower extremities with trace to +1 pitting edema ) Objective Data Labs 09/16/24 06:35 09/16/24 06:35 Labs: Laboratory Results - last 24 hr 09/07/24 09/13/24 09/15/24 15:01 11:13 11:40 WBC RBC Hgb Hct MCV MCH MCHC RDW Plt Count MPV Immature Gran % (Auto) Neut % (Auto) Lymph % (Auto) [place] % (Auto) Eos % (Auto) Baso % (Auto) Lymph # (Auto) [place] # (Auto) Eos # (Auto) Baso # (Auto) Abs Immat Gran (auto) Absolute Neuts (auto) Absolute Nucleated RBC Nucleated RBC % (auto) PT INR APTT Sodium Potassium Chloride Carbon Dioxide Anion Gap BUN Creatinine Estim Creat Clear Calc Estimated GFR POC Glucose 147 H Random Glucose Lactic Acid Calcium Phosphorus Total Bilirubin AST ALT Alkaline Phosphatase Troponin I High Sens Total Protein Albumin Urine Opiates Screen Ur Buprenorphine Scrn Ur Oxycodone Screen Urine Methadone Screen Urine Fentanyl Screen Ur Barbiturates Screen Ur Phencyclidine Scrn Ur Amphetamines Screen U Benzodiazepines Scrn Urine Cocaine Screen U Marijuana (THC) Screen Hep C Viral Load <15 NOT DETECTED Hep C Viral Load Log <1.18 NOT DETECTED Crossmatch See Detail 09/15/24 09/15/24 09/15/24 16:30 20:20 23:14 WBC RBC Hgb Hct MCV MCH MCHC RDW Plt Count MPV Immature Gran % (Auto) Neut % (Auto) Lymph % (Auto) [place] % (Auto) Eos % (Auto) Baso % (Auto) Lymph # (Auto) [place] # (Auto) Eos # (Auto) Baso # (Auto) Abs Immat Gran (auto) Absolute Neuts (auto) Absolute Nucleated RBC Nucleated RBC % (auto) PT INR APTT Sodium Potassium Chloride Carbon Dioxide Anion Gap BUN Creatinine Estim Creat Clear Calc Estimated GFR POC Glucose 169 H 207 H 162 H Random Glucose Lactic Acid Calcium Phosphorus Total Bilirubin AST ALT Alkaline Phosphatase Troponin I High Sens Total Protein Albumin Urine Opiates Screen Ur Buprenorphine Scrn Ur Oxycodone Screen Urine Methadone Screen Urine Fentanyl Screen Ur Barbiturates Screen Ur Phencyclidine Scrn Ur Amphetamines Screen U Benzodiazepines Scrn Urine Cocaine Screen U Marijuana (THC) Screen Hep C Viral Load Hep C Viral Load Log Crossmatch 09/16/24 09/16/24 09/16/24 00:02 01:16 06:35 WBC 13.3 H 17.3 H RBC 2.60 L 2.70 L Hgb 7.6 L 7.8 L Hct 24.1 L 25.1 L MCV 92.7 93.0 MCH 29.2 28.9 MCHC 31.5 31.1 RDW 16.8 H 16.7 H Plt Count 284 286 MPV 11.0 11.4 Immature Gran % (Auto) 0.5 H Neut % (Auto) 82.4 H Lymph % (Auto) 7.5 L [place] % (Auto) 7.8 Eos % (Auto) 1.5 Baso % (Auto) 0.3 Lymph # (Auto) 1.0 L [place] # (Auto) 1.0 Eos # (Auto) 0.2 Baso # (Auto) 0.0 Abs Immat Gran (auto) 0.06 H Absolute Neuts (auto) 10.9 H Absolute Nucleated RBC 0.000 0.000 Nucleated RBC % (auto) 0.0 0.0 PT 13.8 H INR 1.2 H APTT 25.5 L Sodium 132 L 130 L Potassium 3.9 4.1 Chloride 96 96 Carbon Dioxide 27 23 Anion Gap 13 15 BUN 43 H 45 H Creatinine 3.90 H 3.88 H Estim Creat Clear Calc 30.5 30.7 Estimated GFR 17 17 POC Glucose Random Glucose 169 H 190 H Lactic Acid 1.3 Calcium 7.3 L 7.7 L Phosphorus 5.5 H Total Bilirubin 0.5 AST 32 ALT 10 Alkaline Phosphatase 250 H Troponin I High Sens 974.2 H* Total Protein 6.7 Albumin 2.3 L Urine Opiates Screen Ur Buprenorphine Scrn Ur Oxycodone Screen Urine Methadone Screen Urine Fentanyl Screen Ur Barbiturates Screen Ur Phencyclidine Scrn Ur Amphetamines Screen U Benzodiazepines Scrn Urine Cocaine Screen U Marijuana (THC) Screen Hep C Viral Load Hep C Viral Load Log Crossmatch 09/16/24 09/16/24 09/16/24 07:19 08:20 11:16 WBC RBC Hgb Hct MCV MCH MCHC RDW Plt Count MPV Immature Gran % (Auto) Neut % (Auto) Lymph % (Auto) [place] % (Auto) Eos % (Auto) Baso % (Auto) Lymph # (Auto) [place] # (Auto) Eos # (Auto) Baso # (Auto) Abs Immat Gran (auto) Absolute Neuts (auto) Absolute Nucleated RBC Nucleated RBC % (auto) PT INR APTT Sodium Potassium Chloride Carbon Dioxide Anion Gap BUN Creatinine Estim Creat Clear Calc Estimated GFR POC Glucose 182 H 149 H Random Glucose Lactic Acid Calcium Phosphorus Total Bilirubin AST ALT Alkaline Phosphatase Troponin I High Sens Total Protein Albumin Urine Opiates Screen POSITIVE H Ur Buprenorphine Scrn Positive H Ur Oxycodone Screen Positive H Urine Methadone Screen Positive H Urine Fentanyl Screen POSITIVE H Ur Barbiturates Screen Not Detected Ur Phencyclidine Scrn Not Detected Ur Amphetamines Screen Not Detected U Benzodiazepines Scrn Not Detected Urine Cocaine Screen POSITIVE H U Marijuana (THC) Screen Not Detected Hep C Viral Load Hep C Viral Load Log Crossmatch Microbiology Microbiology Results: Microbiology 08/29/24 14:03 Blood - Venous Blood Culture - Final No growth after 5 days. 08/29/24 14:03 Blood - Venous Blood Culture - Final No growth after 5 days. 08/29/24 Unknown Urine clean catch - Clean Catch Midstream Urine Culture - Final No growth. 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 at baseline, MERLIN on CKD likely tubular injury, along with natural progression of renal disease likely now ESRD tested positive for cocaine, cocaine-induced injury may have also been contributory mild pericardial friction rub unlikely to be a result of uremia given patient has been on dialysis in the hospital for some time now - per cardiology they will get an echo to check for effusion HD M, W, F (plan for HD today) patient remains fluid overloaded but continues to maintain manageable fluid status with HD, non-oliguric in last 24 hours H&H is 7.8 and 25.1 today, unlikely related to CKD given intermittent precipitous/acute drops, procrit 10,000 units administered 09/13 not metabolically acidotic potassium within normal limits Calcium 7.7, PTH 746. Calcitriol 0.25mg daily Phosphorous elevated at 5.5, calcium acetate 667mg x2 pills TID with meals patient remains fluid-overloaded, will remove 2-3L as tolerated with HD (Mon, Wed, Fri) patient has permacath (right IJ) in place plan was in place to start outpatient dialysis with [facility]- on hold due to atrial flutter and pericardial friction rub and need for further monitoring/stabilization Continue close monitoring of electrolytes, blood pressure, urine output Will continue to follow. Will discuss/arrange renal transplant eval referral as appropriate once patient is discharged from the hospital per pt wishes. Discussed with Dr Cagle Time Spent With Patient Time: Total time managing care of this patient today ____ minutes. Progress Note: Quality Stroke Does the patient have a stroke diagnosis?: No
[2024-09-16 08:44] LABS: Amphetamine Screen Urine Not Detected (Not Detect); Barbiturates, Urine Not Detected (Not Detect); Benzodiazepines Screen Urine Not Detected (Not Detect); Buprenorphine Scr Positive (Not Detect); Cannabinoid Screen Urine Not Detected (Not Detect); Cocaine Screen Urine POSITIVE (Not Detect); Fentanyl, urine POSITIVE (Not Detect); Methadone Screen, Urine Positive (Not Detect); Opiate Screen Urine POSITIVE (Not Detect); Oxycodone Screen Urine Positive (Not Detect); Phencyclidine Screen Urine Not Detected (Not Detect)
[2024-09-16 11:29] LABS: Glucose, Whole Blood 149 mg/dL (60-115)
[2024-09-16] MEDS: guaiFENesin LA 600 MG TAB.ER.12H PO ×2 (11:37→20:09)
--- NOTE | 2024-09-16 12:37 | PM.PNCARD ---
Subjective Subjective Date of Service: 09/16/24 Interval history: Seen and examined at bedside. Continues to be in 2 to 1 flutter Echo has showing pericarial effusion with fibrin strands over the RV. He had normal echo earlier this month. He had permacath placed 09/07 Physical Exam Vital Signs: Last Vital Signs Temp 98.8 F 09/16/24 11:19 Pulse 137 H 09/16/24 11:19 Resp 16 09/16/24 11:19 BP 100/63 09/16/24 11:19 Pulse Ox 89 L 09/16/24 11:19 O2 Del Method Room Air 09/16/24 11:19 O2 Flow Rate 2.5 09/16/24 07:21 BMI result Body Mass Index 39.8 GENERAL APPEARANCE: in no acute distress, morbidly obese. NECK: no carotid bruit, no jugular venous distention. SKIN: no suspicious lesions, warm and dry. HEART: no murmurs, regular rate and rhythm. Tachycardic. LUNGS: clear to auscultation bilaterally. ABDOMEN: soft, nontender. Extremities: Right below knee amputation. b/l edema. PERIPHERAL PULSES: equal. NEUROLOGIC: No gross deficits, AAO X 3 Objective Labs and Meds 09/16/24 06:35 09/16/24 06:35 Lab results: Laboratory Results - last 24 hr 09/07/24 09/13/24 09/15/24 15:01 11:13 11:40 WBC RBC Hgb Hct MCV MCH MCHC RDW Plt Count MPV Immature Gran % (Auto) Neut % (Auto) Lymph % (Auto) [place] % (Auto) Eos % (Auto) Baso % (Auto) Lymph # (Auto) [place] # (Auto) Eos # (Auto) Baso # (Auto) Abs Immat Gran (auto) Absolute Neuts (auto) Absolute Nucleated RBC Nucleated RBC % (auto) PT INR APTT Sodium Potassium Chloride Carbon Dioxide Anion Gap BUN Creatinine Estim Creat Clear Calc Estimated GFR POC Glucose 147 H Random Glucose Lactic Acid Calcium Phosphorus Total Bilirubin AST ALT Alkaline Phosphatase Troponin I High Sens Total Protein Albumin Urine Opiates Screen Ur Buprenorphine Scrn Ur Oxycodone Screen Urine Methadone Screen Urine Fentanyl Screen Ur Barbiturates Screen Ur Phencyclidine Scrn Ur Amphetamines Screen U Benzodiazepines Scrn Urine Cocaine Screen U Marijuana (THC) Screen Hep C Viral Load <15 NOT DETECTED Hep C Viral Load Log <1.18 NOT DETECTED Crossmatch See Detail 09/15/24 09/15/24 09/15/24 16:30 20:20 23:14 WBC RBC Hgb Hct MCV MCH MCHC RDW Plt Count MPV Immature Gran % (Auto) Neut % (Auto) Lymph % (Auto) [place] % (Auto) Eos % (Auto) Baso % (Auto) Lymph # (Auto) [place] # (Auto) Eos # (Auto) Baso # (Auto) Abs Immat Gran (auto) Absolute Neuts (auto) Absolute Nucleated RBC Nucleated RBC % (auto) PT INR APTT Sodium Potassium Chloride Carbon Dioxide Anion Gap BUN Creatinine Estim Creat Clear Calc Estimated GFR POC Glucose 169 H 207 H 162 H Random Glucose Lactic Acid Calcium Phosphorus Total Bilirubin AST ALT Alkaline Phosphatase Troponin I High Sens Total Protein Albumin Urine Opiates Screen Ur Buprenorphine Scrn Ur Oxycodone Screen Urine Methadone Screen Urine Fentanyl Screen Ur Barbiturates Screen Ur Phencyclidine Scrn Ur Amphetamines Screen U Benzodiazepines Scrn Urine Cocaine Screen U Marijuana (THC) Screen Hep C Viral Load Hep C Viral Load Log Crossmatch 09/16/24 09/16/24 09/16/24 00:02 01:16 06:35 WBC 13.3 H 17.3 H RBC 2.60 L 2.70 L Hgb 7.6 L 7.8 L Hct 24.1 L 25.1 L MCV 92.7 93.0 MCH 29.2 28.9 MCHC 31.5 31.1 RDW 16.8 H 16.7 H Plt Count 284 286 MPV 11.0 11.4 Immature Gran % (Auto) 0.5 H Neut % (Auto) 82.4 H Lymph % (Auto) 7.5 L [place] % (Auto) 7.8 Eos % (Auto) 1.5 Baso % (Auto) 0.3 Lymph # (Auto) 1.0 L [place] # (Auto) 1.0 Eos # (Auto) 0.2 Baso # (Auto) 0.0 Abs Immat Gran (auto) 0.06 H Absolute Neuts (auto) 10.9 H Absolute Nucleated RBC 0.000 0.000 Nucleated RBC % (auto) 0.0 0.0 PT 13.8 H INR 1.2 H APTT 25.5 L Sodium 132 L 130 L Potassium 3.9 4.1 Chloride 96 96 Carbon Dioxide 27 23 Anion Gap 13 15 BUN 43 H 45 H Creatinine 3.90 H 3.88 H Estim Creat Clear Calc 30.5 30.7 Estimated GFR 17 17 POC Glucose Random Glucose 169 H 190 H Lactic Acid 1.3 Calcium 7.3 L 7.7 L Phosphorus 5.5 H Total Bilirubin 0.5 AST 32 ALT 10 Alkaline Phosphatase 250 H Troponin I High Sens 974.2 H* Total Protein 6.7 Albumin 2.3 L Urine Opiates Screen Ur Buprenorphine Scrn Ur Oxycodone Screen Urine Methadone Screen Urine Fentanyl Screen Ur Barbiturates Screen Ur Phencyclidine Scrn Ur Amphetamines Screen U Benzodiazepines Scrn Urine Cocaine Screen U Marijuana (THC) Screen Hep C Viral Load Hep C Viral Load Log Crossmatch 09/16/24 09/16/24 09/16/24 07:19 08:20 11:16 WBC RBC Hgb Hct MCV MCH MCHC RDW Plt Count MPV Immature Gran % (Auto) Neut % (Auto) Lymph % (Auto) [place] % (Auto) Eos % (Auto) Baso % (Auto) Lymph # (Auto) [place] # (Auto) Eos # (Auto) Baso # (Auto) Abs Immat Gran (auto) Absolute Neuts (auto) Absolute Nucleated RBC Nucleated RBC % (auto) PT INR APTT Sodium Potassium Chloride Carbon Dioxide Anion Gap BUN Creatinine Estim Creat Clear Calc Estimated GFR POC Glucose 182 H 149 H Random Glucose Lactic Acid Calcium Phosphorus Total Bilirubin AST ALT Alkaline Phosphatase Troponin I High Sens Total Protein Albumin Urine Opiates Screen POSITIVE H Ur Buprenorphine Scrn Positive H Ur Oxycodone Screen Positive H Urine Methadone Screen Positive H Urine Fentanyl Screen POSITIVE H Ur Barbiturates Screen Not Detected Ur Phencyclidine Scrn Not Detected Ur Amphetamines Screen Not Detected U Benzodiazepines Scrn Not Detected Urine Cocaine Screen POSITIVE H U Marijuana (THC) Screen Not Detected Hep C Viral Load Hep C Viral Load Log Crossmatch Progress Note: A&P Assessment and plan (1) Atrial flutter: Status: Acute (2) Pericardial effusion: Status: Acute (3) Cardiomyopathy: Status: Acute Plan [age] year gentleman with new onset atrial flutter. He had a pericardial friction rub which led to echocardiography showing [id number] pericardial effusion with fibrin strands around the right ventricle. Had a PermCath placed recently. Also was started on dialysis end of August but echocardiography early September did not show any pericardial effusion. Differentials are uremia versus traumatic due to PermCath. Clinically is not in tamponade. Avoid beta-blockers for now. Continue the amiodarone 400 mg b.i.d. loading. He is completely asymptomatic from the atrial flutter currently. Would avoid anticoagulation currently. We will repeat echocardiography on Friday to reassess the pericardial effusion. Would favor using colchicine as anti-inflammatory currently. We have to dose for hemodialysis. Thank you for allowing me to participate in the care of your patient. Please feel free to contact me if you have any questions. Time Spent With Patient Time: Total time managing care of this patient today ____ minutes. Progress Note: Quality Stroke Does the patient have a stroke diagnosis?: No Procedures Date of Service Date of Service: 09/16/24
--- NOTE | 2024-09-16 13:30 | HO.PM.IMPN ---
Subjective Subjective Date of Service: 09/16/24 Interval History: Seen and evaluated this morning Hb at 7.8 Creatinine improved to 3.8 post HD rhythm of A.flutter w RvR No other overnight events Review of Systems Review of Systems: Yes all other systems are reviewed and are negative Physical Exam Vital Signs: Vital Signs: Last Vital Signs Temp 98.8 F 09/16/24 11:19 Pulse 137 H 09/16/24 11:19 Resp 16 09/16/24 11:19 BP 100/63 09/16/24 11:19 Pulse Ox 89 L 09/16/24 11:19 O2 Del Method Room Air 09/16/24 11:19 O2 Flow Rate 2.5 09/16/24 07:21 BMI result Body Mass Index 39.8 Const: Other: Constitutional : Awake, interactive, not in distress Neck : Normal inspection, Supple Cardiovascular : irregular irregular , no JVP, no lower extremity edema Respiratory : good bilateral air entry, no crackles, wheezes or rhonchi Gastrointestinal: soft, lax, Normal bowel sounds, Non tender Skin : Warm, Dry, multiple skin picking gabriel, BKA right, LLE callus with dry skin, Perma-catheter in place Neurological : Alert & oriented x3, No focal deficit Objective Data Active Medications Acetaminophen (Acetaminophen 325 Mg Tablet) 975 mg PO Q6H PRN PRN Reason: Pain, Mild (Pain Scale 1-3) Albuterol Sulfate (Albuterol Sulfate 90 Mcg 8 Gm Inhaler) 2 puff INHALE RQ6H PRN PRN Reason: sob Last Admin: 09/14/24 13:38 Dose: 2 puff Documented By: ABEL Albuterol/Ipratropium (Albuterol/Iprat 2.5/0.5mg 3 Ml Ampul.Neb) 3 ml INHALE Q4H PRN PRN Reason: Shortness of Breath/Wheezing Last Admin: 09/15/24 20:54 Dose: 3 ml Documented By: KHALIDA Amiodarone HCl (Amiodarone Hcl 200 Mg Tablet) 400 mg PO BID LYSSA Last Admin: 09/16/24 08:09 Dose: 400 mg Documented By: AUSTIN Benzocaine (Throat Lozenge, Medicated Lozenge) 1 lozenge MUCOUS MEM Q2H PRN PRN Reason: Sore Throat Last Admin: 09/16/24 03:48 Dose: 1 lozenge Documented By: NYA Buprenorphine/Naloxone (Buprenorphine/Naloxone 8/2 Mg Film) 1 film SUBLINGUAL TID@0800,1400,2000 [facility] Last Admin: 09/16/24 08:09 Dose: 1 film Documented By: AUSTIN Calcitriol (Calcitriol 0.25 Mcg Capsule) 0.5 mcg PO DAILY [facility] Last Admin: 09/16/24 08:09 Dose: 0.5 mcg Documented By: AUSTIN Calcium Acetate (Calcium Acetate 667 Mg Capsule) 1,334 mg PO TIDWM [facility] Last Admin: 09/16/24 11:36 Dose: 1,334 mg Documented By: AUSTIN Calcium Carbonate (Calcium Carbonate 750 Mg Tab.Chew) 750 mg PO Q4H PRN PRN Reason: Heartburn Last Admin: 09/05/24 19:43 Dose: 750 mg Documented By: VALENTINE Docusate Sodium (Docusate Sodium 100 Mg Capsule) 100 mg PO BID [facility] Last Admin: 09/16/24 08:09 Dose: 100 mg Documented By: AUSTIN Glucose (Glucose Gel 15 Gm Gel..Gram.) 15 gm PO Q15M PRN; Protocol PRN Reason: per Hypoglycemia Standing Ord. Guaifenesin (Guaifenesin La 600 Mg Tab.Er.12h) 600 mg PO BID [facility] Last Admin: 09/16/24 11:37 Dose: 600 mg Documented By: AUSTIN Heparin Sodium (Porcine) (Heparin Sodium,Porcine 5,000 Unit/Ml Vial) 5,000 unit SUBCUT Q12H [facility] Last Admin: 09/05/24 12:31 Dose: 5,000 unit Documented By: ROSCOE Heparin Sodium (Porcine) (Heparin Sodium,Porcine 5,000 Unit/Ml Vial) 5,000 unit INTRACATH MOWEFR@1645 [facility] Last Admin: 09/15/24 16:24 Dose: Not Given Documented By: CARLO Non-Admin Reason: DONE IN DIALYSIS Dextrose (D10) 250 mls @ 750 mls/hr IV Q15M PRN; Protocol PRN Reason: per Hypoglycemia Standing Ord. Insulin Human Lispro (Insulin Lispro 100 Unit/Ml 3 Ml Vial) 0 unit SUBCUT QIDACHS [facility]; Protocol Last Admin: 09/16/24 11:32 Dose: Not Given Documented By: AUSTIN Non-Admin Reason: No Insulin Coverage Lactulose (Lactulose 20 Gm/30 Ml Solution) 20 gm PO BID [facility] Last Admin: 09/16/24 08:09 Dose: 20 gm Documented By: AUSTIN Melatonin (Melatonin 3 Mg Tablet) 6 mg PO BEDTIME PRN PRN Reason: Insomnia Last Admin: 09/11/24 00:26 Dose: 6 mg Documented By: JYOTI Methocarbamol (Methocarbamol 500 Mg Tablet) 500 mg PO TID PRN PRN Reason: Muscle Spasm Last Admin: 09/12/24 19:48 Dose: 500 mg Documented By: ZAIRE Multivitamins/Vitamin C (Multivitamin Tablet) 1 tab PO DAILY [facility] Last Admin: 09/16/24 08:09 Dose: 1 tab Documented By: AUSTIN Nicotine (Nicotine 14 Mg Patch.Td24) 14 mg TRANSDERMA DAILY [facility] Last Admin: 09/16/24 08:08 Dose: 14 mg Documented By: AUSTIN Nicotine Polacrilex (Nicotine Polacrilex 2 Mg Gum) 2 mg BUCCAL Q1H PRN PRN Reason: Nicotine Cravings Last Admin: 09/15/24 08:20 Dose: 2 mg Documented By: CARLO Omeprazole (Omeprazole 40 Mg Capsule.Dr) 40 mg PO DAILY@0630 [facility] Last Admin: 09/16/24 05:25 Dose: 40 mg Documented By: NYA Ondansetron HCl (Ondansetron Hcl 4 Mg/2 Ml Vial) 4 mg IVPUSH Q8H PRN PRN Reason: Nausea and Vomiting Last Admin: 08/31/24 11:09 Dose: 4 mg Documented By: DENNY Oxycodone HCl (Oxycodone Hcl Immed Release 5 Mg Tablet) 5 mg PO Q4H PRN PRN Reason: Pain, Severe (Pain Scale 7-10) Last Admin: 09/15/24 16:36 Dose: 5 mg Documented By: CARLO Psyllium Hydrophilic Mucilloid (Psyllium Seed 3.7 Gm Packet) 3.7 gm PO DAILY [facility] Last Admin: 09/16/24 08:09 Dose: 3.7 gm Documented By: AUSTIN Sodium Chloride (0.9 % Sodium Chloride Flush 3 Ml Syringe) 3 ml IVFLUSH QSHIFT [facility] Last Admin: 09/16/24 08:09 Dose: 3 ml Documented By: AUSTIN Labs 09/16/24 06:35 09/16/24 06:35 Labs: Laboratory Results - last 24 hr 09/07/24 09/13/24 09/15/24 15:01 11:13 11:40 MCV MCH MCHC RDW Plt Count MPV Immature Gran % (Auto) Neut % (Auto) Lymph % (Auto) Kern % (Auto) Eos % (Auto) Baso % (Auto) Lymph # (Auto) Kern # (Auto) Eos # (Auto) Baso # (Auto) Abs Immat Gran (auto) Absolute Neuts (auto) Absolute Nucleated RBC Nucleated RBC % (auto) PT INR APTT Anion Gap Estim Creat Clear Calc Estimated GFR POC Glucose 147 H Random Glucose Lactic Acid Calcium Phosphorus Total Bilirubin AST ALT Alkaline Phosphatase Troponin I High Sens Total Protein Albumin Urine Opiates Screen Ur Buprenorphine Scrn Ur Oxycodone Screen Urine Methadone Screen Urine Fentanyl Screen Ur Barbiturates Screen Ur Phencyclidine Scrn Ur Amphetamines Screen U Benzodiazepines Scrn Urine Cocaine Screen U Marijuana (THC) Screen Hep C Viral Load <15 NOT DETECTED Hep C Viral Load Log <1.18 NOT DETECTED Crossmatch See Detail 09/15/24 09/15/24 09/15/24 16:30 20:20 23:14 MCV MCH MCHC RDW Plt Count MPV Immature Gran % (Auto) Neut % (Auto) Lymph % (Auto) Kern % (Auto) Eos % (Auto) Baso % (Auto) Lymph # (Auto) Kern # (Auto) Eos # (Auto) Baso # (Auto) Abs Immat Gran (auto) Absolute Neuts (auto) Absolute Nucleated RBC Nucleated RBC % (auto) PT INR APTT Anion Gap Estim Creat Clear Calc Estimated GFR POC Glucose 169 H 207 H 162 H Random Glucose Lactic Acid Calcium Phosphorus Total Bilirubin AST ALT Alkaline Phosphatase Troponin I High Sens Total Protein Albumin Urine Opiates Screen Ur Buprenorphine Scrn Ur Oxycodone Screen Urine Methadone Screen Urine Fentanyl Screen Ur Barbiturates Screen Ur Phencyclidine Scrn Ur Amphetamines Screen U Benzodiazepines Scrn Urine Cocaine Screen U Marijuana (THC) Screen Hep C Viral Load Hep C Viral Load Log Crossmatch 09/16/24 09/16/24 09/16/24 00:02 01:16 06:35 MCV 92.7 93.0 MCH 29.2 28.9 MCHC 31.5 31.1 RDW 16.8 H 16.7 H Plt Count 284 286 MPV 11.0 11.4 Immature Gran % (Auto) 0.5 H Neut % (Auto) 82.4 H Lymph % (Auto) 7.5 L Kern % (Auto) 7.8 Eos % (Auto) 1.5 Baso % (Auto) 0.3 Lymph # (Auto) 1.0 L Kern # (Auto) 1.0 Eos # (Auto) 0.2 Baso # (Auto) 0.0 Abs Immat Gran (auto) 0.06 H Absolute Neuts (auto) 10.9 H Absolute Nucleated RBC 0.000 0.000 Nucleated RBC % (auto) 0.0 0.0 PT 13.8 H INR 1.2 H APTT 25.5 L Anion Gap 13 15 Estim Creat Clear Calc 30.5 30.7 Estimated GFR 17 17 POC Glucose Random Glucose 169 H 190 H Lactic Acid 1.3 Calcium 7.3 L 7.7 L Phosphorus 5.5 H Total Bilirubin 0.5 AST 32 ALT 10 Alkaline Phosphatase 250 H Troponin I High Sens 974.2 H* Total Protein 6.7 Albumin 2.3 L Urine Opiates Screen Ur Buprenorphine Scrn Ur Oxycodone Screen Urine Methadone Screen Urine Fentanyl Screen Ur Barbiturates Screen Ur Phencyclidine Scrn Ur Amphetamines Screen U Benzodiazepines Scrn Urine Cocaine Screen U Marijuana (THC) Screen Hep C Viral Load Hep C Viral Load Log Crossmatch 09/16/24 09/16/24 09/16/24 07:19 08:20 11:16 MCV MCH MCHC RDW Plt Count MPV Immature Gran % (Auto) Neut % (Auto) Lymph % (Auto) Kern % (Auto) Eos % (Auto) Baso % (Auto) Lymph # (Auto) Kern # (Auto) Eos # (Auto) Baso # (Auto) Abs Immat Gran (auto) Absolute Neuts (auto) Absolute Nucleated RBC Nucleated RBC % (auto) PT INR APTT Anion Gap Estim Creat Clear Calc Estimated GFR POC Glucose 182 H 149 H Random Glucose Lactic Acid Calcium Phosphorus Total Bilirubin AST ALT Alkaline Phosphatase Troponin I High Sens Total Protein Albumin Urine Opiates Screen POSITIVE H Ur Buprenorphine Scrn Positive H Ur Oxycodone Screen Positive H Urine Methadone Screen Positive H Urine Fentanyl Screen POSITIVE H Ur Barbiturates Screen Not Detected Ur Phencyclidine Scrn Not Detected Ur Amphetamines Screen Not Detected U Benzodiazepines Scrn Not Detected Urine Cocaine Screen POSITIVE H U Marijuana (THC) Screen Not Detected Hep C Viral Load Hep C Viral Load Log Crossmatch Assessment and Plan (1) Cardiomyopathy: Status: Acute (2) Pericardial effusion: Status: Acute (3) Atrial flutter: Status: Acute (4) Need for acute hemodialysis: Status: Acute Plan 44M PMH hypertension, hyperlipidemia, diabetes, CKD 3, polysubstance dependence, history of peripheral vascular disease presented with weakness found to have angelo, anemia, leukocysotis, acidosis acute metabolic encephalopathy due to uremic encephalopathy due to ANGELO on CKD 3 complicated by acute metabolic acidosis, mentation improved back to baseline Cr level stable 3-4 and making urine up to 500cc\daily no plan for biopsy as likely diabetic nephropathy catheter placement 08/30/24 and started dialysis, now has PermaCat patient has spot at [facility], was scheduled for 09/13 outpatient start but still waiting for rehab placement Patient would like to pursue renal transplant if possible, as multiple family members have offered to donate to him. 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 s/p 5 units prbc total To give 1 more unit today, target Hb of 8 hematology input appreciated, BCR-ABL gene negative Given Epogen with HD given New onset Atrial flutter w RvR Hold on blood thinners per Cardiology at this stage Echo showing effusion with Fibrin formation; concerning for hemorrhage ? Load with Amiodarone Keep on Tele Cardiology input appreciated, likely uremic pericarditis, hold AC and start Prednisone therapy Acute hypocalcemia replacement given Elevated PTH, started Calcitriol Hx drug abuse repeated U.Tox +ve for Cocaine, Opiates, Fentanyl and Oxy on 09/15 suggesting current use of Cocaine while inpatient discussed with patient and his mother (HCP). he denies any usage security will put restrictions Addiciton team following Methadone weaned off, tolerating Suboxone now PRN Oxycodone Diabetes II Insulin sliding scale debility pt appreciated - plan for STR at SNF if patient able to transfer with minimal assist prior SNF transfer will change plan for home with services DVT prophylaxis Heparin SC Full code reason for continued hospitalization: Atrial flutter with RvR for rate and rhythm control . pericarditis Quality Stroke Does the patient have a stroke diagnosis?: No VTE Prior VTE?: No VTE Risk Level:: Medical - moderate - high VTE Device Contraindication: N/A - Device Ordered VTE Drug Contraindication: Treatment Not Indicated
[2024-09-16] MEDS: Albuterol/Iprat 2.5/0.5MG 3 ML AMPUL.NEB INHALE ×2 (13:47→20:03)
[2024-09-16] MEDS: predniSONE 10 MG TABLET 30 MG PO ×2 (14:48→17:18)
[2024-09-16 16:11] LABS: Glucose, Whole Blood 175 mg/dL (60-115)
[2024-09-16 20:33] LABS: Glucose, Whole Blood 231 mg/dL (60-115)
[2024-09-16] MEDS: oxyCODONE HCl Immed Release 5 MG TABLET PO (21:47)
[2024-09-17] VITALS (11 sets, daily range): BP systolic 86–143; BP diastolic 49–82; PULSE 88–130; RESP 18–22; TEMP 36.2–36.8; O2SAT 90–98
[2024-09-17] MEDS: Omeprazole 40 MG CAPSULE.DR PO (06:00)
[2024-09-17] MEDS: Albuterol/Iprat 2.5/0.5MG 3 ML AMPUL.NEB INHALE ×3 (07:18→22:54)
[2024-09-17 07:25] LABS: Glucose, Whole Blood 265 mg/dL (60-115)
[2024-09-17 08:20] LABS: Hematocrit 28.3 % (42.0-52.0); Hemoglobin 8.6 g/dl (14.0-18.0); Mean Corpuscular HGB Conc 30.4 g/dl (31.0-36.0); Mean Corpuscular Hemoglobin 28.2 pg (27.0-33.0); Mean Corpuscular Volume 92.8 fL (80.0-98.0); Mean Platelet Volume 12.1 fL (9.4-12.4); Platelet Count 280 X10*3/uL (160-400); Red Blood Count 3.05 X10*6/uL (4.60-5.80); Red Cell Distribution Width 16.5 % (11.0-16.0); White Blood Count 10.7 X10*3/uL (4.8-10.8)
[2024-09-17 08:36] LABS: Anion Gap 15 (12-20); Blood Urea Nitrogen 56 mg/dL (9-16); Calcium 7.6 mg/dL (8.4-10.2); Carbon Dioxide 23 mmol/L (22-29); Chloride 95 mmol/L (96-108); Glucose Random 298 mg/dL (60-115); Potassium 4.5 mmol/L (3.3-5.1); Sodium 128 mmol/L (135-145)
[2024-09-17 08:39] LABS: Creatinine Clr Calc Pharmacy 26.1; Estimated Glomerular Filt Rate 14
--- NOTE | 2024-09-17 08:40 | P.PNNP_ITS ---
Subjective Subjective Date of Service: 09/17/24 Interval history: 44 y/o male with a medical history of HTN, HLD, CKD3, polysubstance dependence, PVD. 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 He presented on 08/29 with weakness, abdominal bloating, lower extremity edema/pain. creatinine 6.79 on 08/29 (previous creatinine 2.02 from 1 year ago), started HD on 08/30; creatinine now ranging between 3.43 and 4.85 with intermittent HD GFR ranging from 13-17 over last week urine prot/creat ratio 7.441 on 08/29. No blood in urine from 08/29 CT abd/pelvis on 08/29 showed no hydronephrosis, kidneys/ureters unremarkable, showed diffuse anasarca and pulmonary edema. Liver unremarkable. TTE on 09/03 without obvious valvular pathology Pt developed episodes of atrial flutter on tele and had mild pericardial friction rub 09/15 a.m. asymptomatic continues to have tachycardia, he denies symptoms of heart racing, shortness of breath, chest pain, dizziness patient has permacath (right IJ) in place patient has spot at [facility], was scheduled for 09/13 outpatient but now on hold given cardiac complications pt denies changes/concerns today - breathing comfortable, no dysuria, no tremors/cramping/nausea/itching UOP 550mL/24hr Pt states he would like to pursue renal transplant if needed, as multiple family members have offered to donate to him. Physical Exam 2 Vital Signs: Vital Signs: Last Vital Signs Temp 97.7 F 09/17/24 08:00 Pulse 130 H 09/17/24 08:48 Resp 22 H 09/17/24 08:00 BP 143/82 H 09/17/24 08:48 Pulse Ox 90 L 09/17/24 08:48 O2 Del Method Room Air 09/17/24 08:00 O2 Flow Rate 3 09/16/24 19:10 BMI result Body Mass Index 39.8 Const: General: no acute distress, alert and awake Resp: Effort & Inspection: normal respiratory effort and able to speak in complete sentences Auscultation: clear to auscultation bilaterally Cardio: Rate: tachycardic Rhythm: regular rhythm Heart sounds: S1 normal heart sound present and S2 normal heart sound present GI: Other: anasarca, pitting edema in lower abdomen Palpation (GI): Soft to palpation and nontender : General: Yes no CVA tenderness Back/Spine/Pelvis: Back: no CVA tenderness Skin: Lesions: no lesions Rashes: no rashes Neuro: Other: no tremor or myoclonus Extrem: General: Yes edema (upper lower extremities with trace to +1 pitting edema ) Objective Data Labs 09/17/24 07:46 09/17/24 07:46 Labs: Laboratory Results - last 24 hr 09/16/24 09/16/24 09/16/24 11:16 16:08 20:28 WBC RBC Hgb Hct MCV MCH MCHC RDW Plt Count MPV Absolute Nucleated RBC Nucleated RBC % (auto) Sodium Potassium Chloride Carbon Dioxide Anion Gap BUN Creatinine Estim Creat Clear Calc Estimated GFR POC Glucose 149 H 175 H 231 H Random Glucose Calcium Troponin I High Sens 09/17/24 09/17/24 09/17/24 07:20 07:46 11:09 WBC 10.7 RBC 3.05 L Hgb 8.6 L Hct 28.3 L MCV 92.8 MCH 28.2 MCHC 30.4 L RDW 16.5 H Plt Count 280 MPV 12.1 Absolute Nucleated RBC 0.000 Nucleated RBC % (auto) 0.0 Sodium 128 L Potassium 4.5 Chloride 95 L Carbon Dioxide 23 Anion Gap 15 BUN 56 H Creatinine 4.55 H* Estim Creat Clear Calc 26.1 Estimated GFR 14 POC Glucose 265 H 339 H Random Glucose 298 H Calcium 7.6 L Troponin I High Sens 768.6 H* Microbiology Microbiology Results: Microbiology 09/16/24 00:02 Blood - Venous Blood Culture - Preliminary No growth after 24 hours. 09/16/24 00:02 Blood - Venous Blood Culture - Preliminary No growth after 24 hours. 08/29/24 14:03 Blood - Venous Blood Culture - Final No growth after 5 days. 08/29/24 14:03 Blood - Venous Blood Culture - Final No growth after 5 days. 08/29/24 Unknown Urine clean catch - Clean Catch Midstream Urine Culture - Final No growth. Procedures Date of Service Date of Service: 09/17/24 Assessment & Plan Assessment and plan (1) Acute renal failure: Status: Acute (2) MERLIN (acute kidney injury): Status: Acute (3) CKD (chronic kidney disease) stage 3, GFR 30-59 ml/min: Status: Acute Plan Patient initially with MERLIN on chronic proteinuric CKD Most likely CKD 2/2 diabetic nephropathy at baseline, MERLIN on CKD likely tubular injury, along with natural progression of renal disease likely now ESRD tested positive for cocaine, cocaine-induced injury may have also been contributory mild pericardial friction rub unlikely to be a result of uremia given patient has been on dialysis in the hospital for some time now (not present today), 09/15 echo done to check for effusion HD M, W, F (plan for HD today) patient remains fluid overloaded but continues to maintain manageable fluid status with HD, non-oliguric in last 24 hours H&H is 7.8 and 25.1 today, unlikely related to CKD given intermittent precipitous/acute drops, procrit 10,000 units administered 09/13 not metabolically acidotic potassium within normal limits Calcium 7.7, PTH 746. Calcitriol 0.25mg daily Phosphorous elevated at 5.5, calcium acetate 667mg x2 pills TID with meals patient remains fluid-overloaded, will continue to remove 2-3L as tolerated with HD (Mon, Wed, Fri) patient has permacath (right IJ) in place without erythema, dressing intact plan was in place to start outpatient dialysis with [facility]- on hold due to atrial flutter/tachycardia Continue close monitoring of electrolytes, blood pressure, urine output Will continue to follow. Will discuss/arrange renal transplant eval referral as appropriate once patient is discharged from the hospital per pt wishes. Discussed with Dr Cagle Time Spent With Patient Time: Total time managing care of this patient today ____ minutes. Progress Note: Quality Stroke Does the patient have a stroke diagnosis?: No
[2024-09-17 09:01] LABS: Troponin-I High Sensitivity 768.6 ng/L (<3.5-35.0)
[2024-09-17] MEDS: Insulin Lispro 100 UNIT/ML 3 ML VIAL SUBCUT ×4 (09:07→20:25)
[2024-09-17] MEDS: Nicotine 14 MG PATCH.TD24 TRANSDERMA (09:07)
[2024-09-17] MEDS: Multivitamin TABLET 1 TAB PO (09:09)
[2024-09-17] MEDS: calcitrioL 0.25 MCG CAPSULE 0.5 MCG PO (09:09)
[2024-09-17] MEDS: Lactulose 20 GM/30 ML SOLUTION PO ×2 (09:09→20:15)
[2024-09-17] MEDS: Amiodarone HCL 200 MG TABLET 400 MG PO ×2 (09:09→20:16)
[2024-09-17] MEDS: Calcium Acetate 667 MG CAPSULE 1334 MG PO ×3 (09:09→18:08)
[2024-09-17] MEDS: Buprenorphine/Naloxone 8/2 mg FILM 1 FILM SUBLINGUAL ×3 (09:09→20:17)
[2024-09-17] MEDS: predniSONE 10 MG TABLET 30 MG PO ×2 (09:10→18:08)
[2024-09-17] MEDS: guaiFENesin LA 600 MG TAB.ER.12H PO ×2 (09:10→20:16)
[2024-09-17] MEDS: 0.9 % Sodium Chloride Flush 3 ML SYRINGE IVFLUSH ×2 (09:10→20:22)
[2024-09-17] MEDS: Docusate Sodium 100 MG CAPSULE PO (09:10)
[2024-09-17] MEDS: Psyllium seed 3.7 GM PACKET PO (09:11)
[2024-09-17] MEDS: oxyCODONE HCl Immed Release 5 MG TABLET PO ×2 (09:14→20:19)
--- NOTE | 2024-09-17 11:00 | PM.PNCARD ---
Subjective Subjective Date of Service: 09/17/24 Interval history: Seen examined at bedside. Adding any symptoms. Continues to be in atrial flutter with heart rate 130. Physical Exam Vital Signs: Last Vital Signs Temp 97.7 F 09/17/24 08:00 Pulse 130 H 09/17/24 08:48 Resp 22 H 09/17/24 08:00 BP 143/82 H 09/17/24 08:48 Pulse Ox 90 L 09/17/24 08:48 O2 Del Method Room Air 09/17/24 08:00 O2 Flow Rate 3 09/16/24 19:10 BMI result Body Mass Index 39.8 GENERAL APPEARANCE: in no acute distress, morbidly obese. NECK: no carotid bruit, no significant jugular venous distention. SKIN: no suspicious lesions, warm and dry. HEART: no murmurs, regular rate and rhythm. Tachycardic. LUNGS: clear to auscultation bilaterally. ABDOMEN: soft, nontender. Extremities: Right below knee amputation. b/l edema. PERIPHERAL PULSES: equal. NEUROLOGIC: No gross deficits, AAO X 3 Objective Labs and Meds 09/17/24 07:46 09/17/24 07:46 Lab results: Laboratory Results - last 24 hr 09/16/24 09/16/24 09/16/24 11:16 16:08 20:28 WBC RBC Hgb Hct MCV MCH MCHC RDW Plt Count MPV Absolute Nucleated RBC Nucleated RBC % (auto) Sodium Potassium Chloride Carbon Dioxide Anion Gap BUN Creatinine Estim Creat Clear Calc Estimated GFR POC Glucose 149 H 175 H 231 H Random Glucose Calcium Troponin I High Sens 09/17/24 09/17/24 07:20 07:46 WBC 10.7 RBC 3.05 L Hgb 8.6 L Hct 28.3 L MCV 92.8 MCH 28.2 MCHC 30.4 L RDW 16.5 H Plt Count 280 MPV 12.1 Absolute Nucleated RBC 0.000 Nucleated RBC % (auto) 0.0 Sodium 128 L Potassium 4.5 Chloride 95 L Carbon Dioxide 23 Anion Gap 15 BUN 56 H Creatinine 4.55 H* Estim Creat Clear Calc 26.1 Estimated GFR 14 POC Glucose 265 H Random Glucose 298 H Calcium 7.6 L Troponin I High Sens 768.6 H* Imaging Radiologist's impression: Impressions Insertion Non-Tunneled Catheter 08/29/24 13:36 IMPRESSION: Placement of a non-tunneled hemodialysis catheter in the right internal jugular vein. PLAN: -The catheter may be used immediately. This procedure was performed by Gurjit Palomo PA-C, and directly supervised by Dr. Morrell. Electronically signed by: Michael Morrell MD 09/16/2024 01:30 PM EST RP Guidance Ultrasound 08/30/24 13:00 IMPRESSION: Placement of a non-tunneled hemodialysis catheter in the right internal jugular vein. PLAN: -The catheter may be used immediately. This procedure was performed by Gurjit Palomo PA-C, and directly supervised by Dr. Morrell. Electronically signed by: Michael Morrell MD 09/16/2024 01:30 PM EST RP Progress Note: A&P Assessment and plan (1) Atrial flutter: Status: Acute (2) Pericardial effusion: Status: Acute (3) Cardiomyopathy: Status: Acute Plan 44-year-old gentleman with new onset atrial flutter. He had a pericardial friction rub which led to echocardiography showing [id number] pericardial effusion with fibrin strands around the right ventricle. Had a PermCath placed recently. Also was started on dialysis end of August but echocardiography early September did not show any pericardial effusion. Differentials are uremia versus traumatic due to PermCath. Clinically is not in tamponade. Continue the amiodarone 400 mg b.i.d. loading. He is completely asymptomatic from the atrial flutter currently. Would avoid anticoagulation currently. We will repeat echocardiography on Friday to reassess the pericardial effusion. After discussion with Nephrology he has been started on prednisone for pericardial inflammation. Steroids can increase the risk of recurrent pericarditis in general but it was felt that use of colchicine is higher risk with his renal failure. Blood pressure is improving. Adding metoprolol 25 mg twice a day. Thank you for allowing me to participate in the care of your patient. Please feel free to contact me if you have any questions. Time Spent With Patient Time: Total time managing care of this patient today ____ minutes. Progress Note: Quality Stroke Does the patient have a stroke diagnosis?: No Procedures Date of Service Date of Service: 09/17/24
[2024-09-17] MEDS: Metoprolol Tartrate 25 MG TABLET PO (11:03)
[2024-09-17 11:18] LABS: Glucose, Whole Blood 339 mg/dL (60-115)
--- NOTE | 2024-09-17 15:13 | HO.PM.IMPN ---
Subjective Subjective Date of Service: 09/17/24 Interval History: Seen and evaluated this morning Hb at 8.4 Na at 128 rhythm of A.flutter w RvR , better controlled No other overnight events Review of Systems Review of Systems: Yes all other systems are reviewed and are negative Physical Exam Vital Signs: Vital Signs: Last Vital Signs Temp 98.2 F 09/17/24 12:00 Pulse 93 09/17/24 13:06 Resp 20 09/17/24 13:06 BP 114/69 09/17/24 12:00 Pulse Ox 97 09/17/24 12:00 O2 Del Method Nasal Cannula 09/17/24 12:00 O2 Flow Rate 3 09/17/24 12:00 BMI result Body Mass Index 39.8 Const: Other: Constitutional : Awake, interactive, not in distress Neck : Normal inspection, Supple Cardiovascular : irregular irregular , no JVP, no lower extremity edema Respiratory : good bilateral air entry, no crackles, wheezes or rhonchi Gastrointestinal: soft, lax, Normal bowel sounds, Non tender Skin : Warm, Dry, multiple skin picking gabriel, BKA right, LLE callus with dry skin, Perma-catheter in place Neurological : Alert & oriented x3, No focal deficit Objective Data Active Medications Acetaminophen (Acetaminophen 325 Mg Tablet) 975 mg PO Q6H PRN PRN Reason: Pain, Mild (Pain Scale 1-3) Albuterol Sulfate (Albuterol Sulfate 90 Mcg 8 Gm Inhaler) 2 puff INHALE RQ6H PRN PRN Reason: sob Last Admin: 09/14/24 13:38 Dose: 2 puff Documented By: ABEL Albuterol/Ipratropium (Albuterol/Iprat 2.5/0.5mg 3 Ml Ampul.Neb) 3 ml INHALE Q4H PRN PRN Reason: Shortness of Breath/Wheezing Last Admin: 09/17/24 13:05 Dose: 3 ml Documented By: YAMINI Amiodarone HCl (Amiodarone Hcl 200 Mg Tablet) 400 mg PO BID LYSSA Last Admin: 09/17/24 09:09 Dose: 400 mg Documented By: KEN Benzocaine (Throat Lozenge, Medicated Lozenge) 1 lozenge MUCOUS MEM Q2H PRN PRN Reason: Sore Throat Last Admin: 09/16/24 03:48 Dose: 1 lozenge Documented By: NYA Buprenorphine/Naloxone (Buprenorphine/Naloxone 8/2 Mg Film) 1 film SUBLINGUAL TID@0800,1400,2000 [facility] Last Admin: 09/17/24 14:37 Dose: 1 film Documented By: KEN Calcitriol (Calcitriol 0.25 Mcg Capsule) 0.5 mcg PO DAILY [facility] Last Admin: 09/17/24 09:09 Dose: 0.5 mcg Documented By: KEN Calcium Acetate (Calcium Acetate 667 Mg Capsule) 1,334 mg PO TIDWM [facility] Last Admin: 09/17/24 12:44 Dose: 1,334 mg Documented By: KEN Calcium Carbonate (Calcium Carbonate 750 Mg Tab.Chew) 750 mg PO Q4H PRN PRN Reason: Heartburn Last Admin: 09/05/24 19:43 Dose: 750 mg Documented By: LAFLAMC Docusate Sodium (Docusate Sodium 100 Mg Capsule) 100 mg PO BID [facility] Last Admin: 09/17/24 09:10 Dose: 100 mg Documented By: KEN Glucose (Glucose Gel 15 Gm Gel..Gram.) 15 gm PO Q15M PRN; Protocol PRN Reason: per Hypoglycemia Standing Ord. Guaifenesin (Guaifenesin La 600 Mg Tab.Er.12h) 600 mg PO BID [facility] Last Admin: 09/17/24 09:10 Dose: 600 mg Documented By: KEN Heparin Sodium (Porcine) (Heparin Sodium,Porcine 5,000 Unit/Ml Vial) 5,000 unit SUBCUT Q12H [facility] Last Admin: 09/05/24 12:31 Dose: 5,000 unit Documented By: ROSCOE Heparin Sodium (Porcine) (Heparin Sodium,Porcine 5,000 Unit/Ml Vial) 5,000 unit INTRACATH MOWEFR@1645 [facility] Last Admin: 09/15/24 16:24 Dose: Not Given Documented By: CARLO Non-Admin Reason: DONE IN DIALYSIS Dextrose (D10) 250 mls @ 750 mls/hr IV Q15M PRN; Protocol PRN Reason: per Hypoglycemia Standing Ord. Insulin Human Lispro (Insulin Lispro 100 Unit/Ml 3 Ml Vial) 0 unit SUBCUT QIDACHS [facility]; Protocol Last Admin: 09/17/24 12:44 Dose: 4 unit Documented By: KEN Lactulose (Lactulose 20 Gm/30 Ml Solution) 20 gm PO BID [facility] Last Admin: 09/17/24 09:09 Dose: 20 gm Documented By: KEN Melatonin (Melatonin 3 Mg Tablet) 6 mg PO BEDTIME PRN PRN Reason: Insomnia Last Admin: 09/11/24 00:26 Dose: 6 mg Documented By: JYOTI Methocarbamol (Methocarbamol 500 Mg Tablet) 500 mg PO TID PRN PRN Reason: Muscle Spasm Last Admin: 09/12/24 19:48 Dose: 500 mg Documented By: ZAIRE Metoprolol Tartrate (Metoprolol Tartrate 25 Mg Tablet) 25 mg PO BID [facility]; Protocol Last Admin: 09/17/24 11:03 Dose: 25 mg Documented By: KEN Multivitamins/Vitamin C (Multivitamin Tablet) 1 tab PO DAILY [facility] Last Admin: 09/17/24 09:09 Dose: 1 tab Documented By: KEN Nicotine (Nicotine 14 Mg Patch.Td24) 14 mg TRANSDERMA DAILY [facility] Last Admin: 09/17/24 09:07 Dose: 14 mg Documented By: KEN Nicotine Polacrilex (Nicotine Polacrilex 2 Mg Gum) 2 mg BUCCAL Q1H PRN PRN Reason: Nicotine Cravings Last Admin: 09/15/24 08:20 Dose: 2 mg Documented By: CARLO Omeprazole (Omeprazole 40 Mg Capsule.Dr) 40 mg PO DAILY@0630 [facility] Last Admin: 09/17/24 06:00 Dose: 40 mg Documented By: JYOTI Ondansetron HCl (Ondansetron Hcl 4 Mg/2 Ml Vial) 4 mg IVPUSH Q8H PRN PRN Reason: Nausea and Vomiting Last Admin: 08/31/24 11:09 Dose: 4 mg Documented By: BHAVANIOTPASheryl Oxycodone HCl (Oxycodone Hcl Immed Release 5 Mg Tablet) 5 mg PO Q4H PRN PRN Reason: Pain, Severe (Pain Scale 7-10) Last Admin: 09/17/24 09:14 Dose: 5 mg Documented By: KEN Prednisone (Prednisone 10 Mg Tablet) 30 mg PO BIDWM [facility] Last Admin: 09/17/24 09:10 Dose: 30 mg Documented By: KEN Psyllium Hydrophilic Mucilloid (Psyllium Seed 3.7 Gm Packet) 3.7 gm PO DAILY [facility] Last Admin: 09/17/24 09:11 Dose: 3.7 gm Documented By: KEN Sodium Chloride (0.9 % Sodium Chloride Flush 3 Ml Syringe) 3 ml IVFLUSH QSHIFT [facility] Last Admin: 09/17/24 09:10 Dose: 3 ml Documented By: KEN Labs 09/17/24 07:46 09/17/24 07:46 Labs: Laboratory Results - last 24 hr 09/16/24 09/16/24 09/17/24 16:08 20:28 07:20 MCV MCH MCHC RDW Plt Count MPV Absolute Nucleated RBC Nucleated RBC % (auto) Anion Gap Estim Creat Clear Calc Estimated GFR POC Glucose 175 H 231 H 265 H Random Glucose Calcium Troponin I High Sens 09/17/24 09/17/24 07:46 11:09 MCV 92.8 MCH 28.2 MCHC 30.4 L RDW 16.5 H Plt Count 280 MPV 12.1 Absolute Nucleated RBC 0.000 Nucleated RBC % (auto) 0.0 Anion Gap 15 Estim Creat Clear Calc 26.1 Estimated GFR 14 POC Glucose 339 H Random Glucose 298 H Calcium 7.6 L Troponin I High Sens 768.6 H* Microbiology Microbiology Results: Microbiology 09/16/24 00:02 Blood Culture - Preliminary Blood - Venous No growth after 24 hours. 09/16/24 00:02 Blood Culture - Preliminary Blood - Venous No growth after 24 hours. Assessment and Plan (1) Cardiomyopathy: Status: Acute (2) Pericardial effusion: Status: Acute (3) Atrial flutter: Status: Acute (4) Need for acute hemodialysis: Status: Acute (5) Opioid use disorder, severe, dependence: Status: Acute Plan 44M PMH hypertension, hyperlipidemia, diabetes, CKD 3, polysubstance dependence, history of peripheral vascular disease presented with weakness found to have angelo, anemia, leukocysotis, acidosis acute metabolic encephalopathy due to uremic encephalopathy due to ANGELO on CKD 3 complicated by acute metabolic acidosis, mentation improved back to baseline Cr level stable 3-4 and making urine up to 500cc\daily no plan for biopsy as likely diabetic nephropathy catheter placement 08/30/24 and started dialysis, now has PermaCath patient has spot at [facility], was scheduled for 09/13 outpatient start but still waiting for rehab placement Patient would like to pursue renal transplant if possible, as multiple family members have offered to donate to him. Acute on chronic anemia with Leukocytosis leukocytosis resolved s/p 6 units prbc total, Hb to 8.4 hematology input appreciated, BCR-ABL gene negative Epogen with HD per nephrology New onset Atrial flutter w RvR Hold on blood thinners per Cardiology at this stage Echo showing effusion with Fibrin formation; concerning for hemorrhage ? Load with Amiodarone start MEtoprolol continue Prednisone 30 mg bid for now Keep on Tele Cardiology input appreciated, likely uremic pericarditis, hold AC and start Prednisone therapy Acute hypocalcemia replacement given Elevated PTH, started Calcitriol Hx drug abuse repeated U.Tox +ve for Cocaine, Opiates, Fentanyl and Oxy on 09/15 suggesting current use of Cocaine while inpatient discussed with patient and his mother (HCP). he denies any usage security will put restrictions Addiciton team following Methadone weaned off, tolerating Suboxone now PRN Oxycodone Diabetes II Insulin sliding scale debility pt appreciated - plan for STR at SNF if patient able to transfer with minimal assist prior SNF transfer will change plan for home with services DVT prophylaxis Heparin SC Full code reason for continued hospitalization: Atrial flutter with RvR for rate and rhythm control . pericarditis Quality Stroke Does the patient have a stroke diagnosis?: No VTE Prior VTE?: No VTE Risk Level:: Medical - moderate - high VTE Device Contraindication: N/A - Device Ordered VTE Drug Contraindication: Treatment Not Indicated
--- NOTE | 2024-09-17 15:54 | MHC.RECOVRN ---
Briefly met with pt to follow up and provide support. Pt laying in bed, awake, alert, easily engages in conversation, much brighter affect from previous meetings. Pt reports Suboxone is going well, has not experienced sweating as he had been reporting previously. Denies questions or concerns at this time. Discussed with Catina Cantu APRN.
[2024-09-17 18:14] LABS: Glucose, Whole Blood 190 mg/dL (60-115)
[2024-09-17 20:27] LABS: Glucose, Whole Blood 309 mg/dL (60-115)
[2024-09-18] VITALS (11 sets, daily range): BP systolic 96–118; BP diastolic 61–71; PULSE 128–130; RESP 18–20; TEMP 36.2–37.1; O2SAT 91–100
[2024-09-18] MEDS: 0.9 % Sodium Chloride 250 ML 999 ML IV (00:05)
[2024-09-18] MEDS: Throat Lozenge, Medicated LOZENGE 1 LOZENGE MUCOUS MEM ×3 (03:20→21:07)
[2024-09-18 07:38] LABS: Glucose, Whole Blood 268 mg/dL (60-115)
[2024-09-18] MEDS: 0.9 % Sodium Chloride Flush 3 ML SYRINGE IVFLUSH ×3 (08:28→21:03)
[2024-09-18] MEDS: Buprenorphine/Naloxone 8/2 mg FILM 1 FILM SUBLINGUAL ×3 (08:28→21:02)
[2024-09-18] MEDS: oxyCODONE HCl Immed Release 5 MG TABLET PO ×3 (08:28→22:37)
[2024-09-18] MEDS: Psyllium seed 3.7 GM PACKET PO (08:29)
[2024-09-18] MEDS: predniSONE 10 MG TABLET 30 MG PO (08:29)
[2024-09-18] MEDS: Nicotine 14 MG PATCH.TD24 TRANSDERMA (08:29)
[2024-09-18] MEDS: Calcium Acetate 667 MG CAPSULE 1334 MG PO ×3 (08:29→16:17)
[2024-09-18] MEDS: calcitrioL 0.25 MCG CAPSULE 0.5 MCG PO (08:29)
[2024-09-18] MEDS: Amiodarone HCL 200 MG TABLET 400 MG PO ×2 (08:30→21:02)
[2024-09-18] MEDS: Multivitamin TABLET 1 TAB PO (08:30)
[2024-09-18] MEDS: Docusate Sodium 100 MG CAPSULE PO (08:30)
[2024-09-18] MEDS: Insulin Lispro 100 UNIT/ML 3 ML VIAL SUBCUT ×5 (08:30→21:02)
[2024-09-18] MEDS: Lactulose 20 GM/30 ML SOLUTION PO (08:30)
[2024-09-18] MEDS: Metoprolol Tartrate 25 MG TABLET PO ×3 (08:30→22:37)
[2024-09-18] MEDS: guaiFENesin LA 600 MG TAB.ER.12H PO (08:30)
[2024-09-18 11:31] LABS: Glucose, Whole Blood 370 mg/dL (60-115)
--- NOTE | 2024-09-18 12:06 | P.PNIM_ITS ---
Subjective Subjective Date of Service: 09/18/24 Interval History: Seen and evaluated this morning feels ok overall, no complaints rhythm of A.flutter w RvR , runs in 120-130s, goes down when he sleeps No other overnight events Review of Systems Review of Systems: Yes all other systems are reviewed and are negative Physical Exam 2 Vital Signs: Vital Signs: Last Vital Signs Temp 98.7 F 09/18/24 11:35 Pulse 129 H 09/18/24 11:35 Resp 20 09/18/24 11:35 BP 116/69 09/18/24 11:35 Pulse Ox 94 09/18/24 11:35 O2 Del Method Room Air 09/18/24 11:35 O2 Flow Rate 2 09/18/24 03:29 BMI result Body Mass Index 39.8 Const: Other: Constitutional : Awake, interactive, not in distress Neck : Normal inspection, Supple Cardiovascular : irregular irregular , no JVP, no lower extremity edema Respiratory : good bilateral air entry, no crackles, wheezes or rhonchi Gastrointestinal: soft, lax, Normal bowel sounds, Non tender Skin : Warm, Dry, multiple skin picking gabriel, BKA right, LLE callus with dry skin, Perma-catheter in place Neurological : Alert & oriented x3, No focal deficit Objective Data Active Medications Acetaminophen (Acetaminophen 325 Mg Tablet) 975 mg PO Q6H PRN PRN Reason: Pain, Mild (Pain Scale 1-3) Albuterol Sulfate (Albuterol Sulfate 90 Mcg 8 Gm Inhaler) 2 puff INHALE RQ6H PRN PRN Reason: sob Last Admin: 09/14/24 13:38 Dose: 2 puff Documented By: ABEL Albuterol/Ipratropium (Albuterol/Iprat 2.5/0.5mg 3 Ml Ampul.Neb) 3 ml INHALE Q4H PRN PRN Reason: Shortness of Breath/Wheezing Last Admin: 09/17/24 22:54 Dose: 3 ml Documented By: NICOLAS Amiodarone HCl (Amiodarone Hcl 200 Mg Tablet) 400 mg PO BID LYSSA Last Admin: 09/18/24 08:30 Dose: 400 mg Documented By: ROSCOE Benzocaine (Throat Lozenge, Medicated Lozenge) 1 lozenge MUCOUS MEM Q2H PRN PRN Reason: Sore Throat Last Admin: 09/18/24 03:20 Dose: 1 lozenge Documented By: ANDREA Buprenorphine/Naloxone (Buprenorphine/Naloxone 8/2 Mg Film) 1 film SUBLINGUAL TID@0800,1400,2000 [facility] Last Admin: 09/18/24 08:28 Dose: 1 film Documented By: ROSCOE Calcitriol (Calcitriol 0.25 Mcg Capsule) 0.5 mcg PO DAILY [facility] Last Admin: 09/18/24 08:29 Dose: 0.5 mcg Documented By: ROSCOE Calcium Acetate (Calcium Acetate 667 Mg Capsule) 1,334 mg PO TIDWM [facility] Last Admin: 09/18/24 08:29 Dose: 1,334 mg Documented By: ROSCOE Calcium Carbonate (Calcium Carbonate 750 Mg Tab.Chew) 750 mg PO Q4H PRN PRN Reason: Heartburn Last Admin: 09/05/24 19:43 Dose: 750 mg Documented By: LAFLAMC Docusate Sodium (Docusate Sodium 100 Mg Capsule) 100 mg PO BID [facility] Last Admin: 09/18/24 08:30 Dose: 100 mg Documented By: ROSCOE Glucose (Glucose Gel 15 Gm Gel..Gram.) 15 gm PO Q15M PRN; Protocol PRN Reason: per Hypoglycemia Standing Ord. Guaifenesin (Guaifenesin La 600 Mg Tab.Er.12h) 600 mg PO BID [facility] Last Admin: 09/18/24 08:30 Dose: 600 mg Documented By: ROSCOE Heparin Sodium (Porcine) (Heparin Sodium,Porcine 5,000 Unit/Ml Vial) 5,000 unit SUBCUT Q12H [facility] Last Admin: 09/05/24 12:31 Dose: 5,000 unit Documented By: ROSCOE Heparin Sodium (Porcine) (Heparin Sodium,Porcine 5,000 Unit/Ml Vial) 5,000 unit INTRACATH MOWEFR@1645 [facility] Last Admin: 09/17/24 17:53 Dose: Not Given Documented By: DOBROB Non-Admin Reason: Given in Dialysis Dextrose (D10) 250 mls @ 750 mls/hr IV Q15M PRN; Protocol PRN Reason: per Hypoglycemia Standing Ord. Insulin Human Lispro (Insulin Lispro 100 Unit/Ml 3 Ml Vial) 0 unit SUBCUT QIDACHS [facility]; Protocol Last Admin: 09/18/24 08:30 Dose: 6 unit Documented By: ROSCOE Lactulose (Lactulose 20 Gm/30 Ml Solution) 20 gm PO BID [facility] Last Admin: 09/18/24 08:30 Dose: 20 gm Documented By: ROSCOE Melatonin (Melatonin 3 Mg Tablet) 6 mg PO BEDTIME PRN PRN Reason: Insomnia Last Admin: 09/11/24 00:26 Dose: 6 mg Documented By: JYOTI Methocarbamol (Methocarbamol 500 Mg Tablet) 500 mg PO TID PRN PRN Reason: Muscle Spasm Last Admin: 09/12/24 19:48 Dose: 500 mg Documented By: ZAIRE Metoprolol Tartrate (Metoprolol Tartrate 25 Mg Tablet) 25 mg PO BID [facility]; Protocol Last Admin: 09/18/24 08:30 Dose: 25 mg Documented By: ROSCOE Multivitamins/Vitamin C (Multivitamin Tablet) 1 tab PO DAILY [facility] Last Admin: 09/18/24 08:30 Dose: 1 tab Documented By: ROSCOE Nicotine (Nicotine 14 Mg Patch.Td24) 14 mg TRANSDERMA DAILY [facility] Last Admin: 09/18/24 08:29 Dose: 14 mg Documented By: ROSCOE Nicotine Polacrilex (Nicotine Polacrilex 2 Mg Gum) 2 mg BUCCAL Q1H PRN PRN Reason: Nicotine Cravings Last Admin: 09/15/24 08:20 Dose: 2 mg Documented By: CARLO Omeprazole (Omeprazole 40 Mg Capsule.Dr) 40 mg PO DAILY@0630 [facility] Last Admin: 09/18/24 05:39 Dose: Not Given Documented By: ANDREA Non-Admin Reason: Patient Asleep Ondansetron HCl (Ondansetron Hcl 4 Mg/2 Ml Vial) 4 mg IVPUSH Q8H PRN PRN Reason: Nausea and Vomiting Last Admin: 08/31/24 11:09 Dose: 4 mg Documented By: HERIPASheryl Oxycodone HCl (Oxycodone Hcl Immed Release 5 Mg Tablet) 5 mg PO Q4H PRN PRN Reason: Pain, Severe (Pain Scale 7-10) Last Admin: 09/18/24 08:28 Dose: 5 mg Documented By: ROSCOE Prednisone (Prednisone 10 Mg Tablet) 30 mg PO BIDWM [facility] Last Admin: 09/18/24 08:29 Dose: 30 mg Documented By: ROSCOE Psyllium Hydrophilic Mucilloid (Psyllium Seed 3.7 Gm Packet) 3.7 gm PO DAILY [facility] Last Admin: 09/18/24 08:29 Dose: 3.7 gm Documented By: ROSCOE Sodium Chloride (0.9 % Sodium Chloride Flush 3 Ml Syringe) 3 ml IVFLUSH QSHIFT [facility] Last Admin: 09/18/24 08:28 Dose: 3 ml Documented By: ROSCOE Labs 09/17/24 07:46 09/17/24 07:46 Labs: Laboratory Results - last 24 hr 09/17/24 09/17/24 09/18/24 18:01 20:23 07:33 POC Glucose 190 H 309 H 268 H 09/18/24 11:27 POC Glucose 370 H* Microbiology Microbiology Results: Microbiology 09/16/24 00:02 Blood Culture - Preliminary Blood - Venous No growth after 48 hours. 09/16/24 00:02 Blood Culture - Preliminary Blood - Venous No growth after 48 hours. Assessment and Plan (1) Cardiomyopathy: Status: Acute (2) Pericardial effusion: Status: Acute (3) Atrial flutter: Status: Acute (4) Need for acute hemodialysis: Status: Acute Plan 44M PMH hypertension, hyperlipidemia, diabetes, CKD 3, polysubstance dependence, history of peripheral vascular disease presented with weakness found to have angelo, anemia, leukocysotis, acidosis acute metabolic encephalopathy due to uremic encephalopathy due to ANGELO on CKD 3 complicated by acute metabolic acidosis, resolved ESRD needs HD catheter placement 08/30/24 and started dialysis, now has PermaCath patient has spot at [facility], waiting for rehab placement\home w PT Acute on chronic anemia with Leukocytosis leukocytosis resolved s/p 6 units prbc total, Hb to 8.4 hematology input appreciated, BCR-ABL gene negative Epogen with HD per nephrology New onset Atrial flutter w RvR w Pericarditis Hold on blood thinners per Cardiology at this stage , repeat Echo Friday and start Eliquis if effusion resolving Echo showing effusion with Fibrin formation; PEricarditis could be from Load with Amiodarone started 09/15 Increase MEtoprolol 25 mg Q6 Consider Digoxin loading wean down Prednisone to 20 mg bid for now Keep on Tele Cardiology input appreciated, likely uremic\traumatic pericarditis, hold AC and start Prednisone therapy as Colchicine not an option in HD Acute hypocalcemia replacement given Elevated PTH, started Calcitriol Hx drug abuse repeated U.Tox +ve for Cocaine, Opiates, Fentanyl and Oxy on 09/15 suggesting current use of Cocaine while inpatient discussed with patient and his mother (HCP). he denies any usage security will put restrictions Addiciton team following Methadone weaned off, tolerating Suboxone now PRN Oxycodone Diabetes II Insulin sliding scale debility pt appreciated - plan for STR at SNF if patient able to transfer with minimal assist prior SNF transfer will change plan for home with services DVT prophylaxis Heparin SC Full code reason for continued hospitalization: Atrial flutter with RvR for rate and rhythm control . pericarditis Quality Stroke Does the patient have a stroke diagnosis?: No VTE Prior VTE?: No VTE Risk Level:: Medical - moderate - high VTE Device Contraindication: N/A - Device Ordered VTE Drug Contraindication: Treatment Not Indicated
--- NOTE | 2024-09-18 12:43 | PM.PNCARD ---
Subjective Subjective Date of Service: 09/18/24 Interval history: Seen examined at bedside. He is complaining of upper airway secretions and asking for nebulizer. Physical Exam Vital Signs: Last Vital Signs Temp 98.7 F 09/18/24 11:35 Pulse 129 H 09/18/24 12:35 Resp 20 09/18/24 11:35 BP 116/69 09/18/24 12:35 Pulse Ox 94 09/18/24 11:35 O2 Del Method Room Air 09/18/24 11:35 O2 Flow Rate 2 09/18/24 03:29 BMI result Body Mass Index 39.8 GENERAL APPEARANCE: in no acute distress, morbidly obese. NECK: no carotid bruit, no significant jugular venous distention. SKIN: no suspicious lesions, warm and dry. HEART: no murmurs, regular rate and rhythm. Tachycardic. LUNGS: clear to auscultation bilaterally. ABDOMEN: soft, nontender. Extremities: Right below knee amputation. b/l edema. PERIPHERAL PULSES: equal. NEUROLOGIC: No gross deficits, AAO X 3 Objective Labs and Meds 09/17/24 07:46 09/17/24 07:46 Lab results: Laboratory Results - last 24 hr 09/17/24 09/17/24 09/18/24 18:01 20:23 07:33 POC Glucose 190 H 309 H 268 H 09/18/24 11:27 POC Glucose 370 H* Progress Note: A&P Assessment and plan (1) Atrial flutter: Status: Acute (2) Pericardial effusion: Status: Acute (3) Cardiomyopathy: Status: Acute Plan 44-year-old gentleman with new onset atrial flutter. He had a pericardial friction rub which led to echocardiography showing [id number] pericardial effusion with fibrin strands around the right ventricle. Had a PermCath placed recently. Also was started on dialysis end of August but echocardiography early September did not show any pericardial effusion. Differentials are uremia versus traumatic due to PermCath. Clinically is not in tamponade. Continue the amiodarone 400 mg b.i.d. loading. He is completely asymptomatic from the atrial flutter currently. Would avoid anticoagulation currently. We will repeat echocardiography on Friday to reassess the pericardial effusion. After discussion with Nephrology he has been started on prednisone for pericardial inflammation. Steroids can increase the risk of recurrent pericarditis in general but it was felt that use of colchicine is higher risk with his renal failure. I think we should stop the steroids soon. Blood pressure is improving. Metoprolol was added and can be titrated. He may benefit from loading dose of digoxin of 500 mcg only. Thank you for allowing me to participate in the care of your patient. Please feel free to contact me if you have any questions. Time Spent With Patient Time: Total time managing care of this patient today ____ minutes. Progress Note: Quality Stroke Does the patient have a stroke diagnosis?: No Procedures Date of Service Date of Service: 09/18/24
--- NOTE | 2024-09-18 14:50 | PC.RT ---
Pt requesting breathing tx PRN. Pt HR 130's. RT requested Xopenex order from MD due to HR.
[2024-09-18] MEDS: levalbuterol HCL 1.25 MG/3 ML VIAL.NEB INHALE ×2 (14:57→22:56)
[2024-09-18 16:17] LABS: Glucose, Whole Blood 313 mg/dL (60-115)
[2024-09-18] MEDS: predniSONE 20 MG TABLET PO (16:17)
[2024-09-18 20:46] LABS: Glucose, Whole Blood 340 mg/dL (60-115)
[2024-09-18] MEDS: Melatonin 3 MG TABLET 6 MG PO (21:02)
[2024-09-19] VITALS (8 sets, daily range): BP systolic 90–112; BP diastolic 58–70; PULSE 123–133; RESP 18–20; TEMP 36.6–37.7; O2SAT 94–100
[2024-09-19] MEDS: Metoprolol Tartrate 25 MG TABLET PO ×2 (06:05→19:46)
[2024-09-19] MEDS: Omeprazole 40 MG CAPSULE.DR PO (06:05)
[2024-09-19 07:16] LABS: Magnesium 2.1 mg/dL (1.6-2.6)
[2024-09-19 07:20] LABS: Anion Gap 15 (12-20); Blood Urea Nitrogen 51 mg/dL (9-16); Calcium 8.1 mg/dL (8.4-10.2); Carbon Dioxide 22 mmol/L (22-29); Chloride 96 mmol/L (96-108); Creatinine Clr Calc Pharmacy 30.1; Estimated Glomerular Filt Rate 16; Potassium 4.2 mmol/L (3.3-5.1); Sodium 129 mmol/L (135-145)
[2024-09-19 07:21] LABS: Hematocrit 28.5 % (42.0-52.0); Hemoglobin 8.6 g/dl (14.0-18.0); Mean Corpuscular HGB Conc 30.2 g/dl (31.0-36.0); Mean Corpuscular Hemoglobin 28.6 pg (27.0-33.0); Mean Corpuscular Volume 94.7 fL (80.0-98.0); Platelet Count 405 X10*3/uL (160-400); Red Blood Count 3.01 X10*6/uL (4.60-5.80); Red Cell Distribution Width 16.1 % (11.0-16.0); White Blood Count 12.6 X10*3/uL (4.8-10.8)
[2024-09-19 07:30] LABS: Glucose, Whole Blood 299 mg/dL (60-115)
[2024-09-19 08:20] LABS: Glucose Random 413 mg/dL (60-115)
[2024-09-19] MEDS: Insulin Lispro 100 UNIT/ML 3 ML VIAL SUBCUT ×5 (09:22→21:28)
[2024-09-19] MEDS: Throat Lozenge, Medicated LOZENGE 1 LOZENGE MUCOUS MEM ×3 (09:23→21:29)
[2024-09-19] MEDS: guaiFENesin LA 600 MG TAB.ER.12H PO ×2 (09:23→19:50)
[2024-09-19] MEDS: calcitrioL 0.25 MCG CAPSULE 0.5 MCG PO (09:23)
[2024-09-19] MEDS: oxyCODONE HCl Immed Release 5 MG TABLET PO ×2 (09:23→23:31)
[2024-09-19] MEDS: Amiodarone HCL 200 MG TABLET 400 MG PO ×2 (09:24→19:47)
[2024-09-19] MEDS: Calcium Acetate 667 MG CAPSULE 1334 MG PO ×3 (09:24→16:47)
[2024-09-19] MEDS: predniSONE 20 MG TABLET PO ×2 (09:24→16:47)
[2024-09-19] MEDS: Docusate Sodium 100 MG CAPSULE PO (09:24)
[2024-09-19] MEDS: Multivitamin TABLET 1 TAB PO (09:24)
[2024-09-19] MEDS: Buprenorphine/Naloxone 8/2 mg FILM 1 FILM SUBLINGUAL ×3 (09:24→19:47)
[2024-09-19] MEDS: Nicotine 14 MG PATCH.TD24 TRANSDERMA (09:24)
[2024-09-19] MEDS: 0.9 % Sodium Chloride Flush 3 ML SYRINGE IVFLUSH ×3 (09:25→19:52)
[2024-09-19 11:35] LABS: Glucose, Whole Blood 276 mg/dL (60-115)
--- NOTE | 2024-09-19 12:33 | PM.PNCARD ---
Subjective Subjective Date of Service: 09/19/24 Interval history: Seen examined at bedside. Continues to be in atrial flutter on amiodarone currently. No other complaints currently. Physical Exam Vital Signs: Last Vital Signs Temp 98.7 F 09/19/24 11:26 Pulse 129 H 09/19/24 11:26 Resp 20 09/19/24 11:26 BP 90/58 L 09/19/24 11:26 Pulse Ox 96 09/19/24 11:26 O2 Del Method Nasal Cannula 09/19/24 11:26 O2 Flow Rate 2 09/19/24 11:26 BMI result Body Mass Index 39.8 GENERAL APPEARANCE: in no acute distress, morbidly obese. NECK: no carotid bruit, no significant jugular venous distention. SKIN: no suspicious lesions, warm and dry. HEART: no murmurs, regular rate and rhythm. Tachycardic. LUNGS: clear to auscultation bilaterally. ABDOMEN: soft, nontender. Extremities: Right below knee amputation. b/l edema. PERIPHERAL PULSES: equal. NEUROLOGIC: No gross deficits, AAO X 3 Objective Labs and Meds 09/19/24 06:14 09/19/24 06:14 Lab results: Laboratory Results - last 24 hr 09/18/24 09/18/24 09/19/24 16:11 20:29 06:14 WBC 12.6 H RBC 3.01 L Hgb 8.6 L Hct 28.5 L MCV 94.7 MCH 28.6 MCHC 30.2 L RDW 16.1 H Plt Count 405 H D MPV 11.0 Absolute Nucleated RBC 0.000 Nucleated RBC % (auto) 0.0 Sodium 129 L Potassium 4.2 Chloride 96 Carbon Dioxide 22 Anion Gap 15 BUN 51 H Creatinine 3.96 H Estim Creat Clear Calc 30.1 Estimated GFR 16 POC Glucose 313 H 340 H Random Glucose 413 H* Calcium 8.1 L D Magnesium 2.1 09/19/24 09/19/24 07:17 11:25 WBC RBC Hgb Hct MCV MCH MCHC RDW Plt Count MPV Absolute Nucleated RBC Nucleated RBC % (auto) Sodium Potassium Chloride Carbon Dioxide Anion Gap BUN Creatinine Estim Creat Clear Calc Estimated GFR POC Glucose 299 H 276 H Random Glucose Calcium Magnesium Progress Note: A&P Assessment and plan (1) Atrial flutter: Status: Acute (2) Pericardial effusion: Status: Acute (3) Cardiomyopathy: Status: Acute Plan 44-year-old gentleman with new onset atrial flutter. He had a pericardial friction rub which led to echocardiography showing [id number] pericardial effusion with fibrin strands around the right ventricle. Had a PermCath placed recently. Also was started on dialysis end of August but echocardiography early September did not show any pericardial effusion. Differentials are uremia versus traumatic due to PermCath. Clinically is not in tamponade. Continue the amiodarone 400 mg b.i.d. loading. He is completely asymptomatic from the atrial flutter currently. Would avoid anticoagulation currently. We will repeat echocardiography on Friday to reassess the pericardial effusion. After discussion with Nephrology he has been started on prednisone for pericardial inflammation. Steroids can increase the risk of recurrent pericarditis in general but it was felt that use of colchicine is higher risk with his renal failure. I think we should stop the steroids soon. Blood pressure is improving. Metoprolol was added and can be titrated. Echo tomorrow-If effusion stable or smaller then add eliquis and would consider GLORIA cardioversion. Thank you for allowing me to participate in the care of your patient. Please feel free to contact me if you have any questions. Time Spent With Patient Time: Total time managing care of this patient today ____ minutes. Progress Note: Quality Stroke Does the patient have a stroke diagnosis?: No Procedures Date of Service Date of Service: 09/19/24
--- NOTE | 2024-09-19 13:00 | P.PNIM_ITS ---
Subjective Subjective Date of Service: 09/19/24 Interval History: Seen and evaluated this morning feels ok overall, no complaints rhythm of Achelsie w RvR , runs in 120-130s, goes down when he sleeps No other overnight events Review of Systems Review of Systems: Yes all other systems are reviewed and are negative Physical Exam 2 Vital Signs: Vital Signs: Last Vital Signs Temp 98.7 F 09/19/24 11:26 Pulse 129 H 09/19/24 11:26 Resp 20 09/19/24 11:26 BP 90/58 L 09/19/24 11:26 Pulse Ox 96 09/19/24 11:26 O2 Del Method Nasal Cannula 09/19/24 11: O2 Flow Rate 2 09/19/24 11:26 BMI result Body Mass Index 39.8 Const: Other: Constitutional : Awake, interactive, not in distress Neck : Normal inspection, Supple Cardiovascular : irregular irregular , no JVP, no lower extremity edema Respiratory : good bilateral air entry, no crackles, wheezes or rhonchi Gastrointestinal: soft, lax, Normal bowel sounds, Non tender Skin : Warm, Dry, multiple skin picking gabriel, BKA right, LLE callus with dry skin, Perma-catheter in place Neurological : Alert & oriented x3, No focal deficit Objective Data Active Medications Acetaminophen (Acetaminophen 325 Mg Tablet) 975 mg PO Q6H PRN PRN Reason: Pain, Mild (Pain Scale 1-3) Albuterol Sulfate (Albuterol Sulfate 90 Mcg 8 Gm Inhaler) 2 puff INHALE RQ6H PRN PRN Reason: sob Last Admin: 09/14/24 13:38 Dose: 2 puff Documented By: ABEL Amiodarone HCl (Amiodarone Hcl 200 Mg Tablet) 400 mg PO BID [facility] Last Admin: 09/19/24 09:24 Dose: 400 mg Documented By: ROSCOE Benzocaine (Throat Lozenge, Medicated Lozenge) 1 lozenge MUCOUS MEM Q2H PRN PRN Reason: Sore Throat Last Admin: 09/19/24 09:23 Dose: 1 lozenge Documented By: ROSCOE Buprenorphine/Naloxone (Buprenorphine/Naloxone 8/2 Mg Film) 1 film SUBLINGUAL TID@0800,1400,2000 [facility] Last Admin: 09/19/24 09:24 Dose: 1 film Documented By: ROSCOE Calcitriol (Calcitriol 0.25 Mcg Capsule) 0.5 mcg PO DAILY [facility] Last Admin: 09/19/24 09:23 Dose: 0.5 mcg Documented By: ROSCOE Calcium Acetate (Calcium Acetate 667 Mg Capsule) 1,334 mg PO TIDWM [facility] Last Admin: 09/19/24 12:08 Dose: 1,334 mg Documented By: ROSCOE Calcium Carbonate (Calcium Carbonate 750 Mg Tab.Chew) 750 mg PO Q4H PRN PRN Reason: Heartburn Last Admin: 09/05/24 19:43 Dose: 750 mg Documented By: LAFLAMC Docusate Sodium (Docusate Sodium 100 Mg Capsule) 100 mg PO BID [facility] Last Admin: 09/19/24 09:24 Dose: 100 mg Documented By: ROSCOE Glucose (Glucose Gel 15 Gm Gel..Gram.) 15 gm PO Q15M PRN; Protocol PRN Reason: per Hypoglycemia Standing Ord. Guaifenesin (Guaifenesin La 600 Mg Tab.Er.12h) 600 mg PO BID [facility] Last Admin: 09/19/24 09:23 Dose: 600 mg Documented By: ROSCOE Heparin Sodium (Porcine) (Heparin Sodium,Porcine 5,000 Unit/Ml Vial) 5,000 unit SUBCUT Q12H [facility] Last Admin: 09/05/24 12:31 Dose: 5,000 unit Documented By: ROSCOE Heparin Sodium (Porcine) (Heparin Sodium,Porcine 5,000 Unit/Ml Vial) 5,000 unit INTRACATH MOWEFR@1645 [facility] Last Admin: 09/17/24 17:53 Dose: Not Given Documented By: DOBROB Non-Admin Reason: Given in Dialysis Dextrose (D10) 250 mls @ 750 mls/hr IV Q15M PRN; Protocol PRN Reason: per Hypoglycemia Standing Ord. Insulin Human Lispro (Insulin Lispro 100 Unit/Ml 3 Ml Vial) 0 unit SUBCUT QIDACHS [facility]; Protocol Last Admin: 09/19/24 12:08 Dose: 6 unit Documented By: ROSCOE Lactulose (Lactulose 20 Gm/30 Ml Solution) 20 gm PO BID [facility] Last Admin: 09/19/24 09:22 Dose: Not Given Documented By: ROSCOE Non-Admin Reason: Patient Refused Levalbuterol HCl (Levalbuterol Hcl 1.25 Mg/3 Ml Vial.Neb) 1.25 mg INHALE Q4H PRN PRN Reason: Shortness of Breath/Wheezing Last Admin: 09/18/24 22:56 Dose: 1.25 mg Documented By: EDEN Melatonin (Melatonin 3 Mg Tablet) 6 mg PO BEDTIME PRN PRN Reason: Insomnia Last Admin: 09/18/24 21:02 Dose: 6 mg Documented By: ANDREA Methocarbamol (Methocarbamol 500 Mg Tablet) 500 mg PO TID PRN PRN Reason: Muscle Spasm Last Admin: 09/12/24 19:48 Dose: 500 mg Documented By: ZAIRE Metoprolol Tartrate (Metoprolol Tartrate 25 Mg Tablet) 25 mg PO Q6H [facility]; Protocol Last Admin: 09/19/24 12:10 Dose: Not Given Documented By: ROSCOE Non-Admin Reason: low BP Multivitamins/Vitamin C (Multivitamin Tablet) 1 tab PO DAILY [facility] Last Admin: 09/19/24 09:24 Dose: 1 tab Documented By: ROSCOE Nicotine (Nicotine 14 Mg Patch.Td24) 14 mg TRANSDERMA DAILY [facility] Last Admin: 09/19/24 09:24 Dose: 14 mg Documented By: ROSCOE Nicotine Polacrilex (Nicotine Polacrilex 2 Mg Gum) 2 mg BUCCAL Q1H PRN PRN Reason: Nicotine Cravings Last Admin: 09/15/24 08:20 Dose: 2 mg Documented By: CARLO Omeprazole (Omeprazole 40 Mg Capsule.Dr) 40 mg PO DAILY@0630 [facility] Last Admin: 09/19/24 06:05 Dose: 40 mg Documented By: ANDREA Ondansetron HCl (Ondansetron Hcl 4 Mg/2 Ml Vial) 4 mg IVPUSH Q8H PRN PRN Reason: Nausea and Vomiting Last Admin: 08/31/24 11:09 Dose: 4 mg Documented By: BHAVANIOTPASheryl Oxycodone HCl (Oxycodone Hcl Immed Release 5 Mg Tablet) 5 mg PO Q4H PRN PRN Reason: Pain, Severe (Pain Scale 7-10) Last Admin: 09/19/24 09:23 Dose: 5 mg Documented By: ROSCOE Prednisone (Prednisone 20 Mg Tablet) 20 mg PO BIDWM [facility] Last Admin: 09/19/24 09:24 Dose: 20 mg Documented By: ROSCOE Psyllium Hydrophilic Mucilloid (Psyllium Seed 3.7 Gm Packet) 3.7 gm PO DAILY [facility] Last Admin: 09/19/24 09:22 Dose: Not Given Documented By: ROSCOE Non-Admin Reason: Patient Refused Sodium Chloride (0.9 % Sodium Chloride Flush 3 Ml Syringe) 3 ml IVFLUSH QSHIFT [facility] Last Admin: 09/19/24 09:25 Dose: 3 ml Documented By: ROSCOE Labs 09/19/24 06:14 09/19/24 06:14 Labs: Laboratory Results - last 24 hr 09/18/24 09/18/24 09/19/24 16:11 20:29 06:14 MCV 94.7 MCH 28.6 MCHC 30.2 L RDW 16.1 H Plt Count 405 H D MPV 11.0 Absolute Nucleated RBC 0.000 Nucleated RBC % (auto) 0.0 Anion Gap 15 Estim Creat Clear Calc 30.1 Estimated GFR 16 POC Glucose 313 H 340 H Random Glucose 413 H* Calcium 8.1 L D Magnesium 2.1 09/19/24 09/19/24 07:17 11:25 MCV MCH MCHC RDW Plt Count MPV Absolute Nucleated RBC Nucleated RBC % (auto) Anion Gap Estim Creat Clear Calc Estimated GFR POC Glucose 299 H 276 H Random Glucose Calcium Magnesium Assessment and Plan (1) Cardiomyopathy: Status: Acute (2) Pericardial effusion: Status: Acute (3) Atrial flutter: Status: Acute Plan 44M PMH hypertension, hyperlipidemia, diabetes, CKD 3, polysubstance dependence, history of peripheral vascular disease presented with weakness found to have angelo, anemia, leukocysotis, acidosis New onset Atrial flutter w RvR w Pericarditis Hold on blood thinners per Cardiology at this stage , repeat Echo Friday and start Eliquis if effusion resolving Echo showing effusion with Fibrin formation; PEricarditis could be from Permacath placement Load with Amiodarone started 09/15 Increase MEtoprolol 25 mg Q6 to do Digoxin loading wean down Prednisone to 20 mg bid for now, short course per cardiology Keep on Tele Cardiology input appreciated, likely uremic\traumatic pericarditis, hold AC and start Prednisone therapy as Colchicine not an option in HD acute metabolic encephalopathy due to uremic encephalopathy due to ANGELO on CKD 3 complicated by acute metabolic acidosis, resolved ESRD needs HD catheter placement 08/30/24 and started dialysis, now has PermaCath patient has spot at [facility], waiting for rehab placement\home w PT Acute on chronic anemia with Leukocytosis leukocytosis resolved s/p 6 units prbc total, Hb to 8.4 hematology input appreciated, BCR-ABL gene negative Epogen with HD per nephrology Acute hypocalcemia replacement given Elevated PTH, started Calcitriol Hx drug abuse repeated U.Tox +ve for Cocaine, Opiates, Fentanyl and Oxy on 09/15 suggesting current use of Cocaine while inpatient discussed with patient and his mother (HCP). he denies any usage security will put restrictions Addiciton team following Methadone weaned off, tolerating Suboxone now PRN Oxycodone Diabetes II Insulin sliding scale debility pt appreciated - plan for STR at SNF if patient able to transfer with minimal assist prior SNF transfer will change plan for home with services DVT prophylaxis Heparin SC Full code reason for continued hospitalization: Atrial flutter with RvR for rate and rhythm control . pericarditis Quality Stroke Does the patient have a stroke diagnosis?: No VTE Prior VTE?: No VTE Risk Level:: Medical - moderate - high VTE Device Contraindication: N/A - Device Ordered VTE Drug Contraindication: Treatment Not Indicated
[2024-09-19] MEDS: Digoxin 0.5 MG/2 ML AMPUL 0.125 MG IVPUSH ×2 (13:32→19:47)
[2024-09-19] MEDS: levalbuterol HCL 1.25 MG/3 ML VIAL.NEB INHALE ×2 (14:03→21:58)
[2024-09-19 16:08] LABS: Glucose, Whole Blood 220 mg/dL (60-115)
[2024-09-19 21:12] LABS: Glucose, Whole Blood 231 mg/dL (60-115)
[2024-09-20] VITALS (9 sets, daily range): BP systolic 106–130; BP diastolic 58–80; PULSE 77–131; RESP 17–20; TEMP 36.7–37.6; O2SAT 91–97
[2024-09-20] MEDS: Metoprolol Tartrate 25 MG TABLET PO ×4 (00:31→17:16)
[2024-09-20] MEDS: Digoxin 0.5 MG/2 ML AMPUL 0.125 MG IVPUSH (00:31)
[2024-09-20] MEDS: Omeprazole 40 MG CAPSULE.DR PO (05:11)
[2024-09-20] MEDS: Calcium Carbonate 750 MG TAB.CHEW PO (05:16)
[2024-09-20 06:59] LABS: Hematocrit 27.8 % (42.0-52.0); Hemoglobin 8.4 g/dl (14.0-18.0); Mean Corpuscular HGB Conc 30.2 g/dl (31.0-36.0); Mean Corpuscular Hemoglobin 28.2 pg (27.0-33.0); Mean Corpuscular Volume 93.3 fL (80.0-98.0); Mean Platelet Volume 10.7 fL (9.4-12.4); Platelet Count 423 X10*3/uL (160-400); Red Blood Count 2.98 X10*6/uL (4.60-5.80); Red Cell Distribution Width 15.9 % (11.0-16.0); White Blood Count 12.5 X10*3/uL (4.8-10.8)
--- NOTE | 2024-09-20 07:00 | CA_ITS ---
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 The visually estimated ejection fraction is between 55-60%. - Small pericardial effusion noted posteriorly. Findings Left Ventricle Normal left ventricular size and systolic function. The visually estimated ejection fraction is between 55-60%. Right Ventricle Normal right ventricular cavity size and systolic function. Venous The inferior vena cava is dilated and does not collapse with inspiration. Pericardium/Pleural There is a small pericardial effusion. There is a large left sided pleural effusion. There are no definitive echocardiographic findings of tamponade physiology. Small pericardial effusion noted posteriorly. Prior Study Comparison Changes noted compared to prior study dated: 09/15/2024. patient is back in sinus rhythm. EF is 55-60%. There is a small posterior pocket of pericardial effusion but no effusion around right ventricle like noticed before. Measurements 2D Linear Measurements IVSd: 1.26 0.6-0.9/0.6-1.0 cm LVIDd: 4.86 3.9-5.3/4.2-5.9 cm LVIDd Index: 2.08 2.4-3.2/2.2-3.1 cm/m2 LVIDs: 3.24 2.0-3.6 cm LVPWd: 1.29 0.7-1.1 cm LV Mass: 303.76 67-162/88-224 g LV Mass Index: 129.81 43-95/49-115 g/m2 Tricuspid Valve RA Press: 15.00 Updated in Other Vendor System with Status of Final Fabio Whitten MD electronically signed on 09/20/2024 12:12:15 PM with status of Final
[2024-09-20 07:15] LABS: Anion Gap 18 (12-20); Blood Urea Nitrogen 62 mg/dL (9-16); Carbon Dioxide 19 mmol/L (22-29); Chloride 96 mmol/L (96-108); Glucose Random 321 mg/dL (60-115); Sodium 128 mmol/L (135-145)
[2024-09-20 07:38] LABS: Creatinine Clr Calc Pharmacy 24.1; Estimated Glomerular Filt Rate 13
[2024-09-20 07:51] LABS: Glucose, Whole Blood 319 mg/dL (60-115)
[2024-09-20] MEDS: Insulin Lispro 100 UNIT/ML 3 ML VIAL SUBCUT ×3 (08:05→17:16)
[2024-09-20] MEDS: Nicotine 14 MG PATCH.TD24 TRANSDERMA (08:45)
[2024-09-20] MEDS: predniSONE 20 MG TABLET PO ×2 (08:46→17:16)
[2024-09-20] MEDS: Amiodarone HCL 200 MG TABLET 400 MG PO (08:46)
[2024-09-20] MEDS: Calcium Acetate 667 MG CAPSULE 1334 MG PO ×3 (08:46→17:16)
[2024-09-20] MEDS: guaiFENesin LA 600 MG TAB.ER.12H PO (08:46)
[2024-09-20] MEDS: Buprenorphine/Naloxone 8/2 mg FILM 1 FILM SUBLINGUAL (08:46)
[2024-09-20] MEDS: Multivitamin TABLET 1 TAB PO (08:46)
[2024-09-20] MEDS: calcitrioL 0.25 MCG CAPSULE 0.5 MCG PO (08:47)
[2024-09-20] MEDS: 0.9 % Sodium Chloride Flush 3 ML SYRINGE IVFLUSH (08:49)
[2024-09-20] MEDS: levalbuterol HCL 1.25 MG/3 ML VIAL.NEB INHALE (08:50)
--- NOTE | 2024-09-20 08:50 | PM.PNNEP ---
Subjective Subjective Date of Service: 09/20/24 Principal diagnosis: Paroxysmal atrial flutter, pericardial effusion. Interval history: 44 y/o male with a medical history of HTN, HLD, CKD3, polysubstance dependence, PVD. 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 He presented on 08/29 with weakness, abdominal bloating, lower extremity edema/pain. creatinine 6.79 on 08/29 (previous creatinine 2.02 from 1 year ago), started HD on 08/30; creatinine now ranging between 3.43 and 4.85 with intermittent HD GFR ranging from 13-17 over last week urine prot/creat ratio 7.441 on 08/29. No blood in urine from 08/29 CT abd/pelvis on 08/29 showed no hydronephrosis, kidneys/ureters unremarkable, showed diffuse anasarca and pulmonary edema. Liver unremarkable. TTE on 09/03 without obvious valvular pathology Pt developed episodes of atrial flutter on tele and had mild pericardial friction rub 09/15 a.m. asymptomatic continues to have tachycardia, he continues to deny symptoms patient has permacath (right IJ) in place patient has spot at [facility], was scheduled for 09/13 outpatient but now on hold given cardiac complications pt denies changes/concerns today - breathing comfortable, no dysuria, no tremors/cramping/nausea/itching oliguric- UOP 200mL/24hr Pt states he would like to pursue renal transplant if needed, as multiple family members have offered to donate to him. Physical Exam Vital Signs: Vital Signs: Last Vital Signs Temp 98.7 F 09/20/24 16:00 Pulse 77 09/20/24 16:00 Resp 20 09/20/24 16:00 BP 128/70 09/20/24 16:00 Pulse Ox 93 09/20/24 16:00 O2 Del Method Room Air 09/20/24 16:00 O2 Flow Rate 2 09/20/24 08:00 BMI result Body Mass Index 39.8 Const: General: no acute distress, alert and awake Resp: Effort & Inspection: normal respiratory effort and able to speak in complete sentences Auscultation: clear to auscultation bilaterally Cardio: Rate: tachycardic Rhythm: regular rhythm Heart sounds: S1 normal heart sound present and S2 normal heart sound present GI: Other: anasarca, pitting edema in lower abdomen Palpation (GI): Soft to palpation and nontender : General: Yes no CVA tenderness Back/Spine/Pelvis: Back: no CVA tenderness Skin: Lesions: no lesions Rashes: no rashes Neuro: Other: no tremor or myoclonus Extrem: General: Yes edema (upper lower extremities with trace to +1 pitting edema ) Objective Data Labs 09/20/24 06:14 09/20/24 06:14 Labs: Laboratory Results - last 24 hr 09/19/24 09/20/24 09/20/24 21:07 06:14 07:39 WBC 12.5 H RBC 2.98 L Hgb 8.4 L Hct 27.8 L MCV 93.3 MCH 28.2 MCHC 30.2 L RDW 15.9 Plt Count 423 H MPV 10.7 Absolute Nucleated RBC 0.000 Nucleated RBC % (auto) 0.0 Sodium 128 L Potassium 5.0 Chloride 96 Carbon Dioxide 19 L Anion Gap 18 BUN 62 H Creatinine 4.94 H* Estim Creat Clear Calc 24.1 Estimated GFR 13 POC Glucose 231 H 319 H Random Glucose 321 H Calcium 8.0 L 09/20/24 09/20/24 11:17 17:11 WBC RBC Hgb Hct MCV MCH MCHC RDW Plt Count MPV Absolute Nucleated RBC Nucleated RBC % (auto) Sodium Potassium Chloride Carbon Dioxide Anion Gap BUN Creatinine Estim Creat Clear Calc Estimated GFR POC Glucose 320 H 224 H Random Glucose Calcium Microbiology Microbiology Results: Microbiology 09/16/24 00:02 Blood - Venous Blood Culture - Preliminary No growth after 48 hours. 09/16/24 00:02 Blood - Venous Blood Culture - Preliminary No growth after 48 hours. 08/29/24 14:03 Blood - Venous Blood Culture - Final No growth after 5 days. 08/29/24 14:03 Blood - Venous Blood Culture - Final No growth after 5 days. 08/29/24 Unknown Urine clean catch - Clean Catch Midstream Urine Culture - Final No growth. 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 at baseline, MERLIN on CKD likely tubular injury, along with natural progression of renal disease likely now ESRD tested positive for cocaine, cocaine-induced injury may have also been contributory mild pericardial friction rub unlikely to be a result of uremia given patient has been on dialysis in the hospital for some time now (not present today), 09/15 echo done to check for effusion HD M, W, F (plan for HD today) patient remains fluid overloaded but continues to maintain manageable fluid status with HD, non-oliguric in last 24 hours H&H is 8.4 and 27 today, procrit 10,000 units administered 09/13 mild metabolic acidosis potassium within normal limits Calcium 8.0, PTH 746. Calcitriol 0.5 daily Phosphorous elevated at 5.5, calcium acetate 667mg x2 pills TID with meals patient remains fluid-overloaded, will continue to remove 2-3L as tolerated with HD (Mon, Wed, Fri) patient has permacath (right IJ) in place without erythema, dressing intact plan was in place to start outpatient dialysis with [facility]- on hold due to atrial flutter/tachycardia Continue close monitoring of electrolytes, blood pressure, urine output Will continue to follow. Will discuss/arrange renal transplant eval referral as appropriate once patient is discharged from the hospital per pt wishes. Discussed with Dr Yañez Time Spent With Patient Time: Total time managing care of this patient today ____ minutes. Progress Note: Quality Stroke Does the patient have a stroke diagnosis?: No
[2024-09-20] MEDS: oxyCODONE HCl Immed Release 5 MG TABLET PO ×2 (08:57→17:18)
[2024-09-20] MEDS: Throat Lozenge, Medicated LOZENGE 1 LOZENGE MUCOUS MEM ×2 (08:59→19:44)
--- NOTE | 2024-09-20 10:48 | ECG_ITS ---
Test Reason : rhythm check Blood Pressure : / mmHG Vent. Rate : 078 BPM Atrial Rate : 078 BPM P-R Int : 180 ms QRS Dur : 102 ms QT Int : 358 ms P-R-T Axes : 039 047 067 degrees QTc Int : 408 ms Normal sinus rhythm Normal ECG When compared with ECG of 16-SEP-2024 01:14, Sinus rhythm has replaced Atrial flutter Vent. rate has decreased BY 41 BPM Nonspecific T wave abnormality, improved in Inferior leads Nonspecific T wave abnormality no longer evident in Anterolateral leads Referred By: Dean Villalobos Electronically Signed By:DEAN VILLALOBOS MD
--- NOTE | 2024-09-20 11:00 | P.PNCA_ITS ---
Subjective Subjective Date of Service: 09/20/24 Principal diagnosis: Paroxysmal atrial flutter, pericardial effusion. Interval history: Patient converted to sinus rhythm this morning. Bedside echocardiogram shows improved pericardial effusion although I have not reviewed it. He denies any cardiac symptoms. Review of Systems Review of Systems Yes all other systems are reviewed and are negative Physical Exam Vital Signs: Last Vital Signs Temp 98.4 F 09/20/24 08:00 Pulse 125 H 09/20/24 08:55 Resp 20 09/20/24 08:55 BP 118/73 09/20/24 08:00 Pulse Ox 97 09/20/24 08:00 O2 Del Method Nasal Cannula 09/20/24 08:00 O2 Flow Rate 2 09/20/24 08:00 BMI result Body Mass Index 39.8 GENERAL APPEARANCE: in no acute distress, morbidly obese. NECK: no carotid bruit, no significant jugular venous distention. SKIN: no suspicious lesions, warm and dry. HEART: no murmurs, regular rate and rhythm. Tachycardic. Positive rub LUNGS: clear to auscultation bilaterally. ABDOMEN: soft, nontender. Extremities: Right below knee amputation. b/l edema. PERIPHERAL PULSES: equal. NEUROLOGIC: No gross deficits, AAO X 3 Objective Labs and Meds 09/20/24 06:14 09/20/24 06:14 Lab results: Laboratory Results - last 24 hr 09/19/24 09/19/24 09/19/24 11:25 15:47 21:07 WBC RBC Hgb Hct MCV MCH MCHC RDW Plt Count MPV Absolute Nucleated RBC Nucleated RBC % (auto) Sodium Potassium Chloride Carbon Dioxide Anion Gap BUN Creatinine Estim Creat Clear Calc Estimated GFR POC Glucose 276 H 220 H 231 H Random Glucose Calcium 09/20/24 09/20/24 06:14 07:39 WBC 12.5 H RBC 2.98 L Hgb 8.4 L Hct 27.8 L MCV 93.3 MCH 28.2 MCHC 30.2 L RDW 15.9 Plt Count 423 H MPV 10.7 Absolute Nucleated RBC 0.000 Nucleated RBC % (auto) 0.0 Sodium 128 L Potassium 5.0 Chloride 96 Carbon Dioxide 19 L Anion Gap 18 BUN 62 H Creatinine 4.94 H* Estim Creat Clear Calc 24.1 Estimated GFR 13 POC Glucose 319 H Random Glucose 321 H Calcium 8.0 L Progress Note: A&P Assessment and plan (1) Paroxysmal atrial flutter: Status: Acute Assessment and Plan: Paroxysmal atrial flutter, converted to sinus rhythm, currently on amiodarone. Most likely appears to be temporarily related to placement of PermCath possibly related to right atrial irritation. There is no clear evidence of worsening pericardial effusion at this point time. 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 Will need some form of monitoring. Will also start him on Eliquis therapy, for 4-6 weeks. Will follow-up as outpatient. Continue metoprolol therapy. (2) Pericardial effusion: Status: Acute Assessment and Plan: Pericardial effusion most likely due to pericardial irritation probably related to recent catheter placement. Pericardial effusion has improved. Not a candidate for colchicine therapy as per Nephrology. Will consider prednisone with rapid taper over the next month. Follow-up limited echo in 4 weeks time. (3) Cardiomyopathy: Status: Acute Assessment and Plan: Prior history of cardiomyopathy with [id number] LV systolic dysfunction without any overt heart failure fluid overload. Currently on hemodialysis which will be pursued through Nephrology team. Currently on metoprolol for neurohormonal modulation. If okay with Nephrology should consider angiotensin receptor blockers also for neurohormonal modulation. Will sign of the case. Patient can be discharged home later. Will set up for outpatient follow-up Time Spent With Patient Time: Total time managing care of this patient today ____ minutes. Progress Note: Quality Stroke Does the patient have a stroke diagnosis?: No Procedures Date of Service Date of Service: 09/20/24
[2024-09-20 11:34] LABS: Glucose, Whole Blood 320 mg/dL (60-115)
--- NOTE | 2024-09-20 11:36 | MHC.CM.PN ---
Addendum entered by Suri Garcia RN 09/20/24 16:00: PT'S MOM ARLEN AT BEDSIDE AND WILL REVIEW DC PAPERWORK W/NURSE PER PT REQUEST, ARLEN FACE TIMING W/RIDE WHEN CM IN ROOM. ARLEN WILL BRING PT'S WC AND BELONGINGS HOME FOR PT. Addendum entered by Suri Garcia RN 09/20/24 15:59: PT'S MOM ARLEN AT BEDSIDE AND WILL REVIEW DC PAPERWORK W/PT AND Addendum entered by Suri Garcia RN 09/20/24 14:37: OUTPT DIALYSIS TRANSPORT VIA AMBULANCE AND WILL BE PROVIDED BY [facility], PT WILL DC HOME AT 6PM VIA [facility] PT DOES REPORT HIS MOTHER IS AWARE HE WILL BE DISCHARGING HOME TODAY. Addendum entered by Suri Garcia RN 09/20/24 14:35: TRANSPORT SET UP FOR OUTPT HD AT [facility], CHAIR TIME 5:30AM, PT GIVEN SCHEDULE VERBALLY X2 AND IN WRITING, CM WILL ALSO ADD TO PRINTABLE DP, WEEK PT'S SCHEDULE [id number] CHAIR TIME 5:30 W/4:45AM PERSONNEL SCHEDULER TIME. Original Note: PER HOSPITALIST PT WANTS TO DC HOME, [facility] TO PROVIDE SN/PT, CM TO SET UP TRANSPORT TO [facility] FOR HD [facility], AT [facility], PT WILL NEED BLS TRANSPORT
--- NOTE | 2024-09-20 14:39 | PM.DS ---
DS: Providers Provider Date of Service: 09/20/24 Date of admission: 08/29/24 16:37 Date of discharge: 09/20/24 Primary care physician: Cristina Stover MD Consults: 08/29/24 14:03 Consult to Nephrology Stat Consulting Provider: [facility] Reason for consultation: acute in chronic renal failure 08/29/24 16:59 Consult to Hematology / Oncology Routine Consulting Provider: [facility] Oncology/Hematology Reason for consultation: leukocytosis 08/30/24 08:55 Addiction Medicine Routine Consulting Provider: Addiction Covering Reason for consultation: polysubstance 08/31/24 09:52 Consult to General Surgery Routine Consulting Provider: [facility] Reason for consultation: LLE large callus and broken skin 09/15/24 10:44 Consult to Cardiology Routine Consulting Provider: [facility] Reason for consultation: atrial arrhythmia Has provider been notified: Yes DS: Diagnosis Discharge Diagnosis (1) Paroxysmal atrial flutter: Status: Inactive (2) Pericardial effusion: Status: Inactive (3) Cardiomyopathy: Status: Inactive DS: Summary Hospital Course Hospital Course: The patient had prolonged hospital stay. For full detailse please return back to EMR. Admission note HPI 44M PMH hypertension, hyperlipidemia, diabetes, CKD 3, polysubstance dependence, history of peripheral vascular disease presented with weakness. For about 1 week complaining of abdominal bloating, bilateral lower extremity pain and edema, weakness, denies fever or chills. Denies chest pain, nausea, vomiting. In ED found to have significant lab abnormalities including severe leukocytosis of 44% predominantly neutrophils, acute kidney injury, anemia, acidosis. Hospital course The patient was treated for the following # Acute metabolic encephalopathy due to uremic encephalopathy due to MERLIN on CKD 3 complicated by acute metabolic acidosis at time of presentation. Creatinine continued to worsen during hospital stay due to ESRD which needed HD as he was followed by nephrology team. catheter placement 08/30/24 and started dialysis, now has PermaCath. patient has spot at [facility] will continue to follow with Nephrology as outpatient. Patient would like to pursue renal transplant if possible, as multiple family members have offered to donate to him. Over the course of hospital stay he had multiple dialysis session with resolution of encephalopathy and improved fluid status. scrotal sweling noted and improved significantly with dialysis and scrotal support. The patient though was not following fluid restrictions. # New onset Atrial flutter w RvR w Pericarditis Noted after placement of Permacath. could be related to that as Echo showing effusion with Fibrin formation; PEricarditis could be from Permacath placement. Loaded with Amiodarone, Started on Metoprolol and treated with tapering dose of steroids as blood thinners were held for concern of hemorrhagic transformation of the effusion. repeated Echo on Friday showed resolving pericardial effusion. Dr Villalobos recommended starting Eliquis. The patient will follow with cardiology as outpatient. # Acute on chronic anemia with Leukocytosis leukocytosis resolved, believed to be Leukomoid reaction upon presentation. received total of 6 units prbc total, Hb to 8.4. hematology input appreciated, BCR-ABL gene negative. Continue to take Epogen with HD per nephrology. # Acute hypocalcemia, replacement given. Elevated PTH, started Calcitriol # Hx drug abuse The patient started on Methadone then Methadone weaned off, tolerating Suboxone as he was followed by addiction team. PRN Oxycodone for pain management. repeated U.Tox +ve for Cocaine, Opiates, Fentanyl and Oxy on 09/15 suggesting current use of Cocaine while inpatient. discussed with patient and his mother (HCP). he denies any usage # Physical deconditioning. He was evaluated by PT team who recommended STR at SNF. The patient did not want to and asked to be discharged home to see how can he manage as he has family support. He remains at high risk of fall and readmission. to do home PT with [facility]. # BKA right, LLE callus with dry skin Had surgery doing bedside debridement. would benefit from occasional debridement of this area to thin out the scar. Warm soaks at home. Discharge plan Continue taperin dose Prednisone as prescribed Start Lantus 10 units daily Start Humalog sliding scale Continue Amiodarone 400 mg for 4 more days then change to 200 mg once a day Start Metoprolol 100 mg daily Start Eliquis 5 mg two times a day, monitor for any bleeding Follow with cardiology as outpatient for further work up and treatment Follow with Nephrology at dialysis MWF Time Attestation Discharge Coordination Time (in mins): 43 Quality: Safe Use of Opioids Does Pt have an Active Cancer Diagnosis on the Problem List?: No Quality: Stroke Does the patient have a stroke diagnosis?: No Physical Exam Vital Signs: Vital Signs: Last Vital Signs Temp 98.5 F 09/20/24 11:53 Pulse 78 09/20/24 11:53 Resp 20 09/20/24 11:53 BP 123/64 09/20/24 11:53 Pulse Ox 92 09/20/24 11:53 O2 Del Method Room Air 09/20/24 11:53 O2 Flow Rate 2 09/20/24 08:00 BMI result Body Mass Index 39.8 Const: Other: Constitutional : Awake, interactive, not in distress Neck : Normal inspection, Supple Cardiovascular : regular regular , no JVP, no lower extremity edema Respiratory : good bilateral air entry, no crackles, wheezes or rhonchi Gastrointestinal: soft, lax, Normal bowel sounds, Non tender Skin : Warm, Dry, multiple skin picking gabriel, BKA right, LLE callus with dry skin, Perma-catheter in place Neurological : Alert & oriented x3, No focal deficit DS: Data Data Completed and Pending Completed studies during hospitalization [Text1]: Procedures Detachment at Right 2nd Toe, Complete, Open Approach (04/18/23) Excision of Right Foot Subcutaneous Tissue and Fascia, Open Approach (04/18/23) Fluoroscopy of Superior Vena Cava using Low Osmolar Contrast, Guidance (04/18/23) Insertion of Infusion Device into Superior Vena Cava, Percutaneous Approach (04/18/23) Insertion of Tunneled Vascular Access Device into Chest Subcutaneous Tissue and Fascia, Percutaneous Approach (04/18/23) Labs on day of discharge: Laboratory Results - last 24 hr 09/19/24 09/19/24 09/20/24 15:47 21:07 06:14 WBC 12.5 H RBC 2.98 L Hgb 8.4 L Hct 27.8 L MCV 93.3 MCH 28.2 MCHC 30.2 L RDW 15.9 Plt Count 423 H MPV 10.7 Absolute Nucleated RBC 0.000 Nucleated RBC % (auto) 0.0 Sodium 128 L Potassium 5.0 Chloride 96 Carbon Dioxide 19 L Anion Gap 18 BUN 62 H Creatinine 4.94 H* Estim Creat Clear Calc 24.1 Estimated GFR 13 POC Glucose 220 H 231 H Random Glucose 321 H Calcium 8.0 L 09/20/24 09/20/24 07:39 11:17 WBC RBC Hgb Hct MCV MCH MCHC RDW Plt Count MPV Absolute Nucleated RBC Nucleated RBC % (auto) Sodium Potassium Chloride Carbon Dioxide Anion Gap BUN Creatinine Estim Creat Clear Calc Estimated GFR POC Glucose 319 H 320 H Random Glucose Calcium Preliminary micro results at discharge 09/16/24 00:02 Blood Culture - Preliminary Blood - Venous No growth after 48 hours. 09/16/24 00:02 Blood Culture - Preliminary Blood - Venous No growth after 48 hours. Imaging Chest x-ray: Radiologist's impression: ITS Impressions KUB X-Ray 08/29/24 13:25 IMPRESSION: 1. Prominent fecal loading of the ascending colon greatest along its proximal segment measuring up to 10.8 cm. 2. There is air-filled dilatation of the remaining colon measuring up to 8.4 cm. Electronically signed by: Angeles Galeas MD 08/29/2024 01:41 PM EDT RP Insertion Non-Tunneled Catheter 08/29/24 13:36 IMPRESSION: Placement of a non-tunneled hemodialysis catheter in the right internal jugular vein. PLAN: -The catheter may be used immediately. This procedure was performed by Gurjit Palomo PA-C, and directly supervised by Dr. Morrell. Electronically signed by: Michael Morrell MD 09/16/2024 01:30 PM EST RP Chest X-Ray 08/29/24 13:54 IMPRESSION: 1. Bronchial thickening suggesting infectious/inflammatory etiology. 2. Elevation right hemidiaphragm. 3. Left basilar atelectasis. Electronically signed by: Angeles Galeas MD 08/29/2024 03:07 PM EDT RP Abdomen/Pelvis CT 08/29/24 15:18 IMPRESSION: 1. No hydronephrosis. 2. Partially visualized patchy opacities in bilateral lung bases which may represent edema or infection. 3. Diffuse anasarca. Fleischner guidelines were followed. Electronically signed by: Mike Galan MD 08/29/2024 03:39 PM EDT RP Guidance Ultrasound 08/30/24 13:00 IMPRESSION: Placement of a non-tunneled hemodialysis catheter in the right internal jugular vein. PLAN: -The catheter may be used immediately. This procedure was performed by Gurjit Palomo PA-C, and directly supervised by Dr. Morrell. Electronically signed by: Michael Morrell MD 09/16/2024 01:30 PM EST RP Discharge Plan Discharge Anticipated Discharge Date/Time: 09/20/24 14:12 Patient Disposition: Home Health Service Discharge Diagnosis: Acute renal failure with end stage renal disease on dialysis New Paroxysmal Atrial flutter Cardiomyopathy Referrals: [facility] [Other] - 1 Week (YOU WILL HAVE OUTPATIENT DIALYSIS AT [facility] MON/FRI/FRI W/A CHAIR TIME OF 5:30AM, [facility]E [facility]SP[facility] AND YOU NEED TO BE READY AT 4:45AM. THANKSGIVING WEEK YOU WILL HAVE DIALYSIS FRI//FRI, [facility] CLERK TIME AND CHAIR TIME WILL REMAIN THE SAME. ) [facility] [Other] - 1 Week ([facility] WILL PROVIDE YOUR TRANSPORTATION TO DIALYSIS. PLEASE CONTACT THEM AT [phone] FOR ANY QUESTIONS. ) [facility] [Outside] - 1 Day (HALF-WAY AND HOME PT) Cristina Stover MD [Primary Care Provider] - 1 Week Catina Cantu CNP [Nurse Practitioner] - 10/11/24 4:00 pm (THIS IS A TELEHEALTH APPOINTMENT AT 4pm, SOMEONE WILL CALL YOUR PHONE OR ARLEN'S PHONE. ) Discharge Medications: New oxycodone 5 mg Tablet 5 mg PO Q6-8H PRN (Reason: Pain, Severe (Pain Scale 7-10)) Qty: 30 0RF Rx Instructions: Partial Fill upon patient request. Discontinued (DME) FreeStyle Lite Strips Strip Qty: 100 0RF Rx Instructions: Test four times a day or as directed. (DME) blood-glucose meter [FreeStyle Lite Meter] Kit Qty: 1 0RF Rx Instructions: As Directed (DME) pen needle, diabetic 32 gauge x 1/4 needle Qty: 100 0RF Rx Instructions: Use four times a day or as directed. (DME) lancets [FreeStyle Lancets] 28 gauge misc Qty: 100 0RF Rx Instructions: Test four times a day or as directed. No Action buprenorphine-naloxone [Suboxone] 8-2 mg film 1 film sublingual TID Qty: 63 0RF multivitamin Tablet 1 tab PO DAILY Qty: 30 0RF atorvastatin 40 mg tablet 40 mg PO BEDTIME Qty: 30 0RF amiodarone 200 mg tablet 200 mg PO DAILY Qty: 90 0RF metoprolol succinate 100 mg tablet extended release 24 hr 100 mg PO DAILY Qty: 90 0RF omeprazole 20 mg capsule,delayed release(DR/EC) 20 mg PO DAILY@0630 Qty: 30 0RF calcitriol 0.25 mcg Capsule 0.5 mcg PO DAILY Qty: 60 0RF calcium acetate(phosphat bind) 667 mg Capsule 1,334 mg PO TIDWM Qty: 120 0RF (DME) pen needle, diabetic 32 gauge x 1/4 needle Qty: 100 0RF Rx Instructions: Use four times a day or as directed. Eliquis 5 mg Tablet 5 mg PO BID Qty: 180 0RF (DME) Dakins solution 1/4 strength 500ml See Rx Instructions .Route .MEDSUPPLY Qty: 1 0RF Rx Instructions: As directed insulin lispro [Humalog KwikPen Insulin] 100 unit/mL insulin pen See Protocol subcut TIDAC Protocol: Insulin Correction Scale Less than or equal to 110 ---- Give (units): 0 111 to 150 Give (units): 0 151 to 200 Give (units): 2 201 to 250 Give (units): 4 251 to 300 Give (units): 6 301 to 350 Give (units): 8 Greater than 350 Give (units): 10 Call MD if Blood Glucose > : 350 insulin glargine 100 unit/mL (3 mL) insulin pen 10 unit subcut DAILY melatonin 5 mg tablet 5 mg PO BEDTIME PRN (Reason: insomnia) prednisone 10 mg tablet 10 mg PO DIRECTED Qty: 20 0RF Rx Instructions: 40 mg daily x 2 days then 30 mg daily x 2 days then 20 mg daily x 2 days then 10 mg daily x 2 days (DME) FreeStyle Lite Strips Strip Qty: 100 0RF Rx Instructions: Test four times a day or as directed. (DME) blood-glucose meter Kit Qty: 1 0RF Rx Instructions: As Directed (DME) lancets [FreeStyle Lancets] 28 gauge misc Qty: 100 0RF Rx Instructions: Test four times a day or as directed. Discharge Orders: Discharge Order (Routine); Ordered 09/20/24 Ordered By: Liborio Ro Diet: Diabetic diet Activity on Discharge: As tolerated Stand Alone Forms: Patient Portal Discharge page Print Language: Persian Care Plan Goals: Continue taperin dose Prednisone as prescribed Start Lantus 10 units daily Start Humalog sliding scale Continue Amiodarone 400 mg for 4 more days then change to 200 mg once a day Start Metoprolol 100 mg daily Start Eliquis 5 mg two times a day, monitor for any bleeding Follow with cardiology as outpatient for further work up and treatment Follow with Nephrology at dialysis [facility] Concerns: End stage renal disease on dialysis New onset atrial flutter on blood thinners Diabetes type 2 on Insulin Plan of Treatment: tapering dose Prednisone Eliquis 5 mg twice daily Amiodarone and Metoprolol for heart rate control Insulin for sugar control Assessment: as above Patient Instructions: Buprenorphine/Naloxone (Into the mouth), Type 2 Diabetes in the Older Adult (DC) Discharge Date/Time: 09/20/24 19:50
--- NOTE | 2024-09-20 16:10 | MHC.RECOVRN ---
Pt has [facility] telehealth appt on 10/11 at 4PM. CM aware.
[2024-09-20 17:14] LABS: Glucose, Whole Blood 224 mg/dL (60-115)
[2024-09-20] MEDS: Naloxone HCl Nasal TAKE HOME 4 MG SPRAY 8 MG NOSTRILALT (17:32)
[2024-09-20 18:12] LABS: Digoxin 0.5 ng/mL (0.8-2.0)
== END 2024-09-20 19:50 | disposition home health service (06) | DRG 470 ==
LOC: HO.ED 16:24 → HO.EDOVER 16:38 → HO.IMC 19:50
PROVIDERS: Internal Medicine Hypertension Specialist; Nurse Practitioner Family; Nurse Practitioner Psychiatric/Mental Health; Radiology Vascular & Interventional Radiology; Student in an Organized Health Care Education/Training Program; Admitting Provider Internal Medicine; Emergency Provider Emergency Medicine; PCP Family Medicine; Visit Provider Student in an Organized Health Care Education/Training Program
PROC: 0JH63XZ Insertion of Tunneled Vascular Access Device into Chest Subcutaneous Tissue and Fascia, Percutaneous Approach (ICD-10-PCS; principal; 2024-09-07 13:00)
DX: I12.0 Hypertensive chronic kidney disease with stage 5 chronic kidney disease or end stage renal disease (principal); G93.41 Metabolic encephalopathy; D61.818 Other pancytopenia; E87.21 Acute metabolic acidosis; I32 Pericarditis in diseases classified elsewhere; N17.9 Acute kidney failure, unspecified; D63.1 Anemia in chronic kidney disease; E83.51 Hypocalcemia; N18.6 End stage renal disease; I95.9 Hypotension, unspecified; I48.92 Unspecified atrial flutter; Z99.2 Dependence on renal dialysis; F11.20 Opioid dependence, uncomplicated; E87.70 Fluid overload, unspecified; D72.823 Leukemoid reaction; E78.5 Hyperlipidemia, unspecified; I42.9 Cardiomyopathy, unspecified; E11.22 Type 2 diabetes mellitus with diabetic chronic kidney disease; L85.9 Epidermal thickening, unspecified; L84 Corns and callosities; R53.81 Other malaise; E11.51 Type 2 diabetes mellitus with diabetic peripheral angiopathy without gangrene; F19.20 Other psychoactive substance dependence, uncomplicated; K59.00 Constipation, unspecified; Z89.511 Acquired absence of right leg below knee; Z79.899 Other long term (current) drug therapy
CPT/HCPCS: 36415; 36556; 36558; 71045; 74018; 74176; 76937; 80048; 80053; 80076; 80162; 80307; 81001; 81206; 81207; 82010; 82040; 82272; 82570; 82784; 82947; 83010; 83605; 83615; 83735; 83880; 83970; 84100; 84156; 84165; 84166; 84484; 85007; 85025; 85027; 85610; 85730; 86021; 86160; 86334; 86335; 86704; 86706; 86803; 86850; 86900; 86901; 86923; 87040; 87086; 87340; 87389; 87522; 90999; 93005; 93306; 93308; 94640; 94660; 97110; 97162; 97167; 97530; 99285; C1750; C1752; C1758; C1769; J0613; J0885; J1160; J1610; J1644; J1650; J2270; J2405; J2470; J2543; J3475; J7120; P9016; P9047; Q5106; Q9957

== ENCOUNTER 2024-08-29 16:37 | Outpatient (BNV) | payer MEDICAID, SELFPAY | END 2024-09-16 01:14 | PROVIDERS: Admitting Provider Internal Medicine; Emergency Provider Emergency Medicine; PCP Family Medicine; Visit Provider Internal Medicine Cardiovascular Disease | DX: R94.31 Abnormal electrocardiogram [ECG] [EKG] (principal) | CPT/HCPCS: 93010 ==

== ENCOUNTER 2024-08-29 16:37 | Outpatient (BNV) | payer MEDICAID, SELFPAY | END 2024-09-20 07:00 | PROVIDERS: Admitting Provider Internal Medicine; Emergency Provider Emergency Medicine; PCP Family Medicine; Visit Provider Internal Medicine Cardiovascular Disease | DX: I31.39 Other pericardial effusion (noninflammatory) (principal); R06.02 Shortness of breath | CPT/HCPCS: 93010; 93308 ==

== ENCOUNTER 2024-08-29 16:37 | Outpatient (BNV) | payer MEDICAID, SELFPAY | END 2024-09-15 07:46 | PROVIDERS: Admitting Provider Internal Medicine; Emergency Provider Emergency Medicine; PCP Family Medicine; Visit Provider Internal Medicine Cardiovascular Disease | DX: J90 Pleural effusion, not elsewhere classified (principal); I48.92 Unspecified atrial flutter | CPT/HCPCS: 93010; 93308 ==

== ENCOUNTER 2024-08-29 16:37 | Outpatient (BNV) | payer MEDICAID, SELFPAY | END 2024-09-07 14:29 | PROVIDERS: Admitting Provider Internal Medicine; Emergency Provider Emergency Medicine; PCP Family Medicine; Visit Provider Physician Assistant Surgical | DX: N18.6 End stage renal disease (principal) | CPT/HCPCS: 36558; 76937 ==

== ENCOUNTER 2024-08-29 16:37 | Outpatient (BNV) | payer MEDICAID, SELFPAY | END 2024-09-03 07:00 | PROVIDERS: Admitting Provider Internal Medicine; Emergency Provider Emergency Medicine; PCP Family Medicine; Visit Provider Internal Medicine | DX: I51.89 Other ill-defined heart diseases (principal) | CPT/HCPCS: 93306 ==

== ENCOUNTER → 2024-08-29 16:37 | Outpatient (BNV) | payer MEDICAID, SELFPAY | PROVIDERS: Admitting Provider Internal Medicine; Emergency Provider Emergency Medicine; PCP Family Medicine; Visit Provider Physician Assistant Surgical | DX: N18.32 Chronic kidney disease, stage 3b (principal) | CPT/HCPCS: 36556; 76937; 77001 ==

== ENCOUNTER → 2024-08-29 16:37 | Outpatient (BNV) | payer MEDICAID, SELFPAY | PROVIDERS: Admitting Provider Internal Medicine; Emergency Provider Emergency Medicine; PCP Family Medicine; Visit Provider Internal Medicine Medical Oncology | DX: D72.829 Elevated white blood cell count, unspecified (principal); D50.9 Iron deficiency anemia, unspecified | CPT/HCPCS: 99222 ==

== ENCOUNTER → 2024-08-29 16:37 | Outpatient (BNV) | payer MEDICAID, SELFPAY | PROVIDERS: Admitting Provider Internal Medicine; Emergency Provider Emergency Medicine; PCP Family Medicine; Visit Provider Nurse Practitioner Family | DX: N17.9 Acute kidney failure, unspecified (principal); N18.32 Chronic kidney disease, stage 3b | CPT/HCPCS: 99223; 99232 ==

== ENCOUNTER → 2024-08-29 16:37 | Outpatient (BNV) | payer MEDICAID, SELFPAY | PROVIDERS: Admitting Provider Internal Medicine; Emergency Provider Emergency Medicine; PCP Family Medicine; Visit Provider Internal Medicine | DX: I42.9 Cardiomyopathy, unspecified (principal); I31.39 Other pericardial effusion (noninflammatory); I48.92 Unspecified atrial flutter | CPT/HCPCS: 99223; 99231; 99232; 99233; 99499 ==

== ENCOUNTER → 2024-08-29 16:37 | Outpatient (BNV) | payer MEDICAID, SELFPAY | PROVIDERS: Admitting Provider Internal Medicine; Emergency Provider Emergency Medicine; PCP Family Medicine; Visit Provider Nurse Practitioner Psychiatric/Mental Health | DX: F11.20 Opioid dependence, uncomplicated (principal) | CPT/HCPCS: 99222; 99231; 99232 ==

== ENCOUNTER → 2024-08-29 16:37 | Outpatient (BNV) | payer MEDICAID, SELFPAY | PROVIDERS: Admitting Provider Internal Medicine; Emergency Provider Emergency Medicine; PCP Family Medicine; Visit Provider Surgery | DX: L84 Corns and callosities (principal); K59.00 Constipation, unspecified | CPT/HCPCS: 97597; 99222; 99232 ==

== ENCOUNTER → 2024-08-29 16:37 | Outpatient (BNV) | payer MEDICAID, SELFPAY | PROVIDERS: Admitting Provider Internal Medicine; Emergency Provider Emergency Medicine; PCP Family Medicine; Visit Provider Internal Medicine Cardiovascular Disease | DX: I48.92 Unspecified atrial flutter (principal); I31.39 Other pericardial effusion (noninflammatory); I42.9 Cardiomyopathy, unspecified | CPT/HCPCS: 99223; 99233 ==

== ENCOUNTER 2024-09-20 20:38 | Inpatient (IN) | payer MEDICAID, SELFPAY ==
--- NOTE | ~2024-09-20 | US_ITS ---
EXAMINATION: US SCROTUM CLINICAL INFORMATION: 44-year-old male with hydrocele. COMPARISON: None available. TECHNIQUE: A sonogram of the scrotum was performed assessing palm-scale appearance and color Doppler flow. Spectral Doppler analysis of the arterial and venous flow were performed in the testes bilaterally. FINDINGS: RIGHT: Right testicle measures 3.6 x 2.0 x 2.0 cm, volume 7.5 mL. No focal testicular parenchymal lesions are visualized is minimal scrotal microlithiasis. Spectral Doppler analysis of the arterial and venous flow is normal in the right testis. Right epididymal head is normal in size. There is mild hydrocele on the right Right epididymal Doppler flow is normal. LEFT: Left testicle measures 3.4 x 1.9 x 2.6 cm, volume 8.8 mL. No focal testicular parenchymal lesions are visualized, with minimal microlithiasis. Spectral Doppler analysis of the arterial and venous flow is normal in the left testis. Left epididymal head is normal in size. No left hydrocele or varicocele is seen. Left epididymal Doppler flow is normal. There is edematous wall of the scrotum US/US scrotum IMPRESSION: Mild hydrocele on the right, Scrotal thickening Mild microlithiasis bilaterally Electronically signed by: Elisabeth Rooney MD 09/21/2024 06:59 PM EST
--- NOTE | ~2024-09-20 | XR_ITS ---
EXAMINATION: XR CHEST CLINICAL INFORMATION: Endotracheal tube placement. COMPARISON: Prior chest radiographs, most recently 09/20/2024; CT chest dated 09/20/2024. TECHNIQUE: Frontal view of the chest was obtained. FINDINGS: The heart, great vessels, pulmonary vasculature and mediastinum are stable. There is pulmonary vascular congestion. An endotracheal tube is seen, with tip situated 4.0 cm superior to lary. A nasogastric tube is seen, with tip inferior to the left hemidiaphragm and excluded from the [id number]. A right internal jugular central venous catheter is seen, with tip situated within the cephalad right atrium. There are moderately large bilateral pleural effusions, and adjacent bibasilar compressive atelectasis is noted. No pneumothorax is seen. There is no acute osseous abnormality. XR/XR chest 1V IMPRESSION: 1. Support tubes and catheters are positioned as above. 2. There are moderately large bibasilar pleural effusions, with adjacent bibasilar compressive atelectasis. 3. There is pulmonary vascular congestion. Electronically signed by: Rocky Stroud MD 09/21/2024 09:53 PM EST
--- NOTE | ~2024-09-20 | CT_ITS ---
EXAMINATION: CT CHEST WITHOUT CONTRAST CLINICAL INFORMATION: Pleural effusions. Pneumonia. COMPARISON: Chest radiograph 09/20/2024. CT abdomen and pelvis 08/29/2024. TECHNIQUE: Multidetector volumetric CT imaging of the chest was done. Axial MIP volume rendering provided. Sagittal and coronal reformatted images were obtained. This CT examination was performed using dose optimization techniques as appropriate, variously including the following: *Automated exposure control *Adjustment of mA and/or kV according to patient size (this includes techniques or standardized protocols for targeted exams where dose is matched to indication/reason for exam; i.e. extremities or head) *Use of iterative reconstruction technique DLP: 520 mGy-cm FINDINGS: Lens Gauger view demonstrates a right internal jugular dual lumen catheter. Lungs and pleura: Moderate dependently layering bilateral pleural effusions are present (-28 Hounsfield units). Bibasilar compressive atelectasis of the lungs is visualized with near complete atelectasis of the left lower pulmonary lobe and significant atelectasis of the right lower pulmonary lobe. Making allowances for atelectasis, no definitive pulmonary consolidation identified. No endobronchial lesions noted. The pneumatized portions of the lungs demonstrate grossly normal pulmonary vasculature. Of note, images are suboptimal secondary to motion artifact. Mediastinum: A tunneled right internal jugular catheter terminates at the superior cavoatrial junction. Moderate scattered coronary artery calcific atherosclerosis is present. Normal heart size. No pericardial thickening or fluid collections. No mediastinal lymphadenopathy. CHEST WALL: Mild bilateral gynecomastia. Diffuse reticulation of subcutaneous fat of the thoracic wall consistent with anasarca. Visualized abdominal structures: Grossly normal appearance of the adrenal glands noted adrenal glands are suboptimally visualized. Osseous structures: Partial visualization of marked endplate erosions and irregularity at the level of C6-C7. The C6 vertebral body is not fully included in the image field of view. Heterogeneous sclerosis is noted within the C7 vertebral body. No abnormalities of the C7 pedicle visualized. Mild endplate sclerotic changes are noted adjacent to the C7-T1 intervertebral disc and may be discogenic in origin. CT/CT chest wo IV con IMPRESSION: *Moderate bilateral pleural effusions with bibasilar compressive atelectasis of the lungs. Near-complete atelectasis of the left lower pulmonary lobe and significant atelectasis of the right lower pulmonary lobe. *Partial visualization of endplate irregularity and erosive changes at C6-C7. Findings could represent discogenic endplate changes. Findings could also represent discitis-osteomyelitis and may be further evaluated with dedicated imaging of the cervical spine as clinically indicated. *Right internal jugular catheter terminating at the superior cavoatrial junction. Electronically signed by: Layo Kyle MD 09/21/2024 02:39 AM JOYA
--- NOTE | ~2024-09-20 | XR_ITS ---
EXAMINATION: XR CHEST CLINICAL INFORMATION: sob COMPARISON: Chest radiograph 08/29/2024. TECHNIQUE: Frontal view of the chest was obtained. FINDINGS: The right internal jugular dual lumen catheter terminates in projection with the right right atrium. Moderate blunting of left right costophrenic sulci noted. Low lung volumes. No focal pulmonary consolidation. Normal appearance of the cardiomediastinal structures. XR/XR chest 1V IMPRESSION: *Moderate bilateral pleural effusions. *Low lung volumes. *Right internal jugular catheter terminating within the right atrium. Electronically signed by: Layo Kyle MD 09/21/2024 01:36 AM EST
[2024-09-20 21:34] VITALS: BP 108/61; BP 200/80; PULSE 88; PULSE 89; RESP 16; TEMP 37.3; O2SAT 94; BMI 26.6
--- NOTE | 2024-09-20 22:03 | ED.GENADULT ---
HPI - General Adult General Chief complaint: General Medical Stated complaint: Hypoxia Time Seen by Provider: 09/20/24 22:03 Source: patient Mode of arrival: EMS Limitations: no limitations History of Present Illness ED Provider: rosi DOUGHERTY narrative: 44-year-old with history of hypertension hyperlipidemia diabetes CKD stage 3 polysubstance dependence peripheral vascular disease right LICO was admitted here on 08/29 for increased weakness and severe anemia workup showed worsening of the CKD and anemia requiring blood transfusion, pericardial effusion, paroxysmal atrial flutter on amiodarone and cardiomyopathy with mild to moderate LVH systolic dysfunction patient is discharged earlier today at 14:00 patient has denied any substance abuse today does have history of COPD and asthma does use inhaler came here for increased shortness of breath saturating 70-80% on arrival patient was saturating 82% at room air become panic, patient does not have any oxygen at home patient' is on dialysis Friday and had last dialysis earlier today Related Data Previous Rx's ?Medication ?Instructions ?Recorded Dakins solution 1/4 strength #1 ea 05/01/23 atorvastatin 40 mg tablet 40 mg PO BEDTIME #30 tabs 05/01/23 melatonin 5 mg tablet 5 mg PO BEDTIME PRN insomnia #30 05/01/23 tabs multivitamin 1 tab PO DAILY #30 tabs 05/01/23 omeprazole 20 mg capsule,delayed 20 mg PO DAILY@0630 #30 caps 05/01/23 release amiodarone 200 mg tablet 200 mg PO DAILY #90 tabs 09/20/24 amiodarone 200 mg tablet 400 mg (2 x 200 mg) PO BID #16 tabs 09/20/24 apixaban 5 mg tablet (Eliquis) 5 mg PO BID #180 tabs 09/20/24 blood sugar diagnostic (FreeStyle #100 ea 09/20/24 Lite Strips) blood-glucose meter #1 ea 09/20/24 buprenorphine 8 mg-naloxone 2 mg 1 film sublingual TID #63 ea 09/20/24 sublingual film (Suboxone) calcitriol 0.25 mcg capsule 0.5 mcg (2 x 0.25 mcg) PO DAILY 09/20/24 #60 caps calcium acetate(phosphat bind) 667 1,334 mg (2 x 667 mg) PO TIDWM 09/20/24 mg capsule #120 caps insulin glargine 100 unit/mL (3 10 unit (0.1 mL) subcut QAM #15 mL 09/20/24 mL) subcutaneous pen insulin lispro 100 unit/mL See Protocol subcut USEASDIRECTD 09/20/24 subcutaneous pen (Humalog KwikPen #15 mL (U-100) Insulin) lancets 28 gauge (FreeStyle #100 ea 09/20/24 Lancets) metoprolol succinate 100 mg 100 mg PO DAILY #90 tabs 09/20/24 tablet,extended release 24 hr oxycodone 5 mg tablet 5 mg PO Q6-8H PRN Pain, Severe 09/20/24 (Pain Scale 7-10) #30 tabs pen needle, diabetic 32 gauge x #100 ea 09/20/24 1/ prednisone 10 mg tablet See Taper PO DIRECTED #40 tabs 09/20/24 Allergies Allergy/AdvReac Type Severity Reaction Status Date / Time No Known Allergies Allergy Verified 09/20/24 21:36 [No Known Allergies*] Review of Systems Review of Systems: Yes all other systems are reviewed and are negative [facility] Past Medical History Medical History Constipation Callus of foot Seizure Polysubstance abuse CKD (chronic kidney disease) stage 3, GFR 30-59 ml/min Foot osteomyelitis, left Amputation of toe of right foot Diabetic ulcer of right foot Hyperglycemia due to type 2 diabetes mellitus Renal failure Sleep apnea Diabetes HTN (hypertension) Surgical History History of surgical procedure (~04/24/23) Social History Social History Household Members: Spouse and Family Household Members Other:: Pt and live with his mother Housing: Apartment Do you presently have visiting nurse or other home services: No Alcohol intake: never Comment: camera in room d/t patient mom using vape in room and 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 Patient Tobacco Use Status: Current everyday Tobacco user Tobacco use type: Cigarette Years Smoked: 33 Smoked in Last 30 Days: No e-Cigarette/Vaping Use: Currently Using Use of substances other than those prescribed or required for medical reasons: No Substance Use Type: Heroin Advance Directives: No Advance Directives Information Provided: Yes Do you have a plan to hurt others: No Plan service: No Physical Exam ED Vital Signs: Vital Signs - 24 hr 09/20/24 21:34 09/20/24 22:09 09/20/24 23:00 Temperature 99.1 F Pulse Rate 89 92 Respiratory Rate 16 18 Blood Pressure 108/61 Pulse Oximetry 94 82 L Oxygen Delivery Method Nasal Cannula Room Air Oxygen Flow Rate 09/21/24 01:02 09/21/24 02:12 09/21/24 04:27 Temperature 98.3 F 98.7 F 98.2 F Pulse Rate 83 84 86 Respiratory Rate 20 18 17 Blood Pressure 121/55 L 112/68 124/82 Pulse Oximetry 97 99 95 Oxygen Delivery Method Oxymask Simple Mask Simple Mask Oxygen Flow Rate 4 7 7 09/21/24 06:42 Temperature 98.6 F Pulse Rate 84 Respiratory Rate 15 Blood Pressure 132/67 Pulse Oximetry 96 Oxygen Delivery Method Simple Mask Oxygen Flow Rate 7 BMI result Body Mass Index 26.6 Appearance: Alert. Oriented X3. Respiratory distress++ Eyes: + pallor or icterus ENT: Pharynx normal. Oral Mucosa moist Neck: Normal inspection. Neck supple. CVS: Normal heart rate and rhythm. Pulses normal. Respiratory: No respiratory distress. Equal air entry bilateral, bilateral prolonged expiration with wheezing decreased air entry at the bases Abdomen: Soft and nontender. Bowel sounds are present, no mass palpable, no CVA tenderness Skin: Skin warm and dry. Normal skin color. Normal skin turgor. Extremities: No lower extremity edema. No calf tenderness right BKA Neuro: Oriented X 3. No motor deficit. Medications Administered Discontinued Medications Generic Name Dose Route Start Last Admin Trade Name Denzel PRN Reason Stop Dose Admin Ceftriaxone Sodium 1 gm 09/21/24 00:08 09/21/24 00:53 Ceftriaxone Sodium 1 Gm Vial IVPUSH 09/21/24 00:09 1 gm ONCE ONE Administration Albuterol Sulfate 2.5 mg/ 0 mg 09/20/24 22:06 09/20/24 22:25 Albuterol/Ipratropium 3 ml INHALE 09/20/24 22:07 1 dose ONCE ONE Administration Furosemide 40 mg 09/20/24 23:45 09/21/24 00:53 Furosemide 40 Mg/4 Ml Vial IVPUSH 09/20/24 23:46 40 mg ONCE ONE Administration Protocol Insulin Human Lispro 10 unit 09/21/24 00:10 09/21/24 00:53 Insulin Lispro 100 Unit/Ml 3 Ml Vial SUBCUT 09/21/24 00:11 10 unit ONCE ONE Administration Lorazepam 1 mg 09/21/24 02:31 09/21/24 03:11 Lorazepam 2 Mg/Ml Vial IVPUSH 09/21/24 02:32 1 mg STAT STA Administration Medical Decision Making Medical Decision Making [facility] Narrative: Patient with moderate pleural effusion with respiratory hypoxia with renal failure admit patient for oxygen therapy and further management for pleural effusion Differential Diagnosis Differential Diagnoses: The differential diagnosis associated with the presentation includes Admission/Observation Consideration of admission/observation: Escalation of care including admission/observation considered Consult Healthcare Provider Management of the patient was discussed with: Hospitalist Lab Data [facility] Lab Attestation statement: I reviewed the patient's lab results. 09/20/24 23:30 09/20/24 23:30 Labs: Lab Results 09/20/24 09/20/24 09/21/24 Range/Units 23:30 23:34 00:22 WBC 13.6 H (4.8-10.8) X10*3/uL RBC 2.87 L (4.60-5.80) X10*6/uL Hgb 8.3 L (14.0-18.0) g/dl Hct 26.8 L (42.0-52.0) % MCV 93.4 (80.0-98.0) fL MCH 28.9 (27.0-33.0) pg MCHC 31.0 (31.0-36.0) g/dl RDW 15.9 (11.0-16.0) % Plt Count 430 H (160-400) X10*3/uL MPV 10.3 (9.4-12.4) fL Immature Gran % (Auto) 0.7 H (0.0-0.4) % Neut % (Auto) 88.6 H (45-73) % Lymph % (Auto) 4.3 L (20-40) % [place] % (Auto) 6.3 (2-11) % Eos % (Auto) 0.0 (0-4) % Baso % (Auto) 0.1 (0-2) % Lymph # (Auto) 0.6 L (1.2-4.9) X10*3/uL [place] # (Auto) 0.9 (0.1-1.2) X10*3/uL Eos # (Auto) 0.0 (0.0-0.4) X10*3/uL Baso # (Auto) 0.0 (0.0-0.2) X10*3/uL Abs Immat Gran (auto) 0.09 H (0.00-0.03) X10*3/uL Absolute Neuts (auto) 12.0 H (2.0-8.3) x10*3/uL Absolute Nucleated RBC 0.000 (0.0-0.012) X10*3/uL Nucleated RBC % (auto) 0.0 (0.0-0.2) /100WBC VBG pH 7.26 L (7.32-7.43) VBG pCO2 46 mmHg VBG pO2 71 mmHg VBG HCO3 21 L (22-26) mmol/L VBG O2 Saturation 94.0 % VBG Base Excess -5.6 mmol/L Sodium 128 L (135-145) mmol/L Potassium 4.7 (3.3-5.1) mmol/L Chloride 97 (96-108) mmol/L Carbon Dioxide 23 (22-29) mmol/L Anion Gap 13 (12-20) BUN 48 H (9-16) mg/dL Creatinine 4.09 H* (0.5-1.4) mg/dL Estim Creat Clear Calc 22.5 Estimated GFR 16 Random Glucose 373 H* (60-115) mg/dL Lactic Acid 1.1 (0.5-2.0) mmol/L Calcium 7.9 L (8.4-10.2) mg/dL Total Bilirubin 0.3 (0.0-1.0) mg/dL AST 26 (5-37) U/L ALT 10 (0-40) U/L Alkaline Phosphatase 221 H (39-117) U/L B-Natriuretic Peptide 1613 H (<100) pg/mL Total Protein 7.1 (6.5-8.0) g/dL Albumin 2.5 L (3.5-5.0) g/dL Influenza Type A (PCR) (Negative) Influenza Type B (PCR) (Negative) RSV RNA Qual (PCR) (Negative) SARS-CoV-2 RNA (RT-PCR) (Negative) 09/21/24 Range/Units 01:18 WBC (4.8-10.8) X10*3/uL RBC (4.60-5.80) X10*6/uL Hgb (14.0-18.0) g/dl Hct (42.0-52.0) % MCV (80.0-98.0) fL MCH (27.0-33.0) pg MCHC (31.0-36.0) g/dl RDW (11.0-16.0) % Plt Count (160-400) X10*3/uL MPV (9.4-12.4) fL Immature Gran % (Auto) (0.0-0.4) % Neut % (Auto) (45-73) % Lymph % (Auto) (20-40) % [place] % (Auto) (2-11) % Eos % (Auto) (0-4) % Baso % (Auto) (0-2) % Lymph # (Auto) (1.2-4.9) X10*3/uL [place] # (Auto) (0.1-1.2) X10*3/uL Eos # (Auto) (0.0-0.4) X10*3/uL Baso # (Auto) (0.0-0.2) X10*3/uL Abs Immat Gran (auto) (0.00-0.03) X10*3/uL Absolute Neuts (auto) (2.0-8.3) x10*3/uL Absolute Nucleated RBC (0.0-0.012) X10*3/uL Nucleated RBC % (auto) (0.0-0.2) /100WBC VBG pH (7.32-7.43) VBG pCO2 mmHg VBG pO2 mmHg VBG HCO3 (22-26) mmol/L VBG O2 Saturation % VBG Base Excess mmol/L Sodium (135-145) mmol/L Potassium (3.3-5.1) mmol/L Chloride (96-108) mmol/L Carbon Dioxide (22-29) mmol/L Anion Gap (12-20) BUN (9-16) mg/dL Creatinine (0.5-1.4) mg/dL Estim Creat Clear Calc Estimated GFR Random Glucose (60-115) mg/dL Lactic Acid (0.5-2.0) mmol/L Calcium (8.4-10.2) mg/dL Total Bilirubin (0.0-1.0) mg/dL AST (5-37) U/L ALT (0-40) U/L Alkaline Phosphatase (39-117) U/L B-Natriuretic Peptide (<100) pg/mL Total Protein (6.5-8.0) g/dL Albumin (3.5-5.0) g/dL Influenza Type A (PCR) NEGATIVE (Negative) Influenza Type B (PCR) NEGATIVE (Negative) RSV RNA Qual (PCR) NEGATIVE (Negative) SARS-CoV-2 RNA (RT-PCR) NEGATIVE (Negative) ABG Data Attestation ABG: I personally reviewed and interpreted this ABG as follows: Interpretation: Mixed respiratory/metabolic acidosis Independent Interpretation I performed an independent interpretation of an: EKG and CT Scan Interpretation: Normal sinus rhythm heart rate 78 beats per minute normal intervals normal axis no acute ST-T changes no acute ischemia Radiology Impression Discussion of test interpretation with radiology: I have reviewed the radiologist's reading. Radiologist Impression: [place] [id number] CT Scan Report Signed Patient: Deandre Luong MR#: [id number] : 1980 Acct:[id number] Age/Sex: 44 / M ADM Date: 09/20/24 Loc: .ED Attending Dr: Ordering Physician: Zander Christianson MD Date of Service: 09/20/24 Procedure(s): CT chest wo IV con Accession Number(s): [id number] cc: Cristina Stover MD; Zander Christianson MD~ EXAMINATION: CT CHEST WITHOUT CONTRAST CLINICAL INFORMATION: Pleural effusions. Pneumonia. COMPARISON: Chest radiograph 09/20/2024. CT abdomen and pelvis 08/29/2024. TECHNIQUE: Multidetector volumetric CT imaging of the chest was done. Axial MIP volume rendering provided. Sagittal and coronal reformatted images were obtained. This CT examination was performed using dose optimization techniques as appropriate, variously including the following: *Automated exposure control *Adjustment of mA and/or kV according to patient size (this includes techniques or standardized protocols for targeted exams where dose is matched to indication/reason for exam; i.e. extremities or head) *Use of iterative reconstruction technique DLP: 520 mGy-cm FINDINGS: Zigzag Stitcher view demonstrates a right internal jugular dual lumen catheter. Lungs and pleura: Moderate dependently layering bilateral pleural effusions are present (-28 Hounsfield units). Bibasilar compressive atelectasis of the lungs is visualized with near complete atelectasis of the left lower pulmonary lobe and significant atelectasis of the right lower pulmonary lobe. Making allowances for atelectasis, no definitive pulmonary consolidation identified. No endobronchial lesions noted. The pneumatized portions of the lungs demonstrate grossly normal pulmonary vasculature. Of note, images are suboptimal secondary to motion artifact. Mediastinum: A tunneled right internal jugular catheter terminates at the superior cavoatrial junction. Moderate scattered coronary artery calcific atherosclerosis is present. Normal heart size. No pericardial thickening or fluid collections. No mediastinal lymphadenopathy. CHEST WALL: Mild bilateral gynecomastia. Diffuse reticulation of subcutaneous fat of the thoracic wall consistent with anasarca. Visualized abdominal structures: Grossly normal appearance of the adrenal glands noted adrenal glands are suboptimally visualized. Osseous structures: Partial visualization of marked endplate erosions and irregularity at the level of C6-C7. The C6 vertebral body is not fully included in the image field of view. Heterogeneous sclerosis is noted within the C7 vertebral body. No abnormalities of the C7 pedicle visualized. Mild endplate sclerotic changes are noted adjacent to the C7-T1 intervertebral disc and may be discogenic in origin. CT/CT chest wo IV con IMPRESSION: *Moderate bilateral pleural effusions with bibasilar compressive atelectasis of the lungs. Near-complete atelectasis of the left lower pulmonary lobe and significant atelectasis of the right lower pulmonary lobe. *Partial visualization of endplate irregularity and erosive changes at C6-C7. Findings could represent discogenic endplate changes. Findings could also represent discitis-osteomyelitis and may be further evaluated with dedicated imaging of the cervical spine as clinically indicated. *Right internal jugular catheter terminating at the superior cavoatrial junction. Electronically signed by: Layo Kyel MD 09/21/2024 02:39 AM JOYA Critical Care Time Critical Care Time Critical Care Time: Yes Total Critical Care Time: 55 Attestation: The patient was critically ill with a high probability of imminent or life threatening deterioration. I spent greater than 65???minutes of discontinuous time evaluating the patient,delivering critical care at the bedside, discussing and evaluating pertinent data with consultants. Critical care time does not include time spent performing separately billable procedures or teaching. Total time spent performing critical care was 55???minutes. Discharge Plan Discharge Clinical Impression: Acute hypoxemic respiratory failure, Pleural effusion, bilateral CKD (chronic kidney disease) stage 3, GFR 30-59 ml/min Qualifiers: Chronic kidney disease stage 3 subtype: stage 3b (GFR 30-44) Qualified Code(s): N18.32 - Chronic kidney disease, stage 3b Patient Disposition: Admitted As Inpatient Print Language: Indonesian
[2024-09-20 22:09] VITALS: O2SAT 82
[2024-09-20] MEDS: Albuterol Sulfate 2.5 MG, Albuterol/Iprat 2.5/0.5MG 3 ML 3 ML INHALE (22:25)
[2024-09-20 23:00] VITALS: PULSE 92; RESP 18; O2SAT 94
[2024-09-20 23:35] LABS: MANUAL DIFF FLAG NO
[2024-09-20 23:36] LABS: Basophils Percent Auto 0.1 % (0-2); Hematocrit 26.8 % (42.0-52.0); Hemoglobin 8.3 g/dl (14.0-18.0); Imm Gran Abs Auto 0.09 X10*3/uL (0.00-0.03); Imm Gran Pct Auto 0.7 % (0.0-0.4); Lymphocytes Absolute Auto 0.6 X10*3/uL (1.2-4.9); Lymphocytes Percent Auto 4.3 % (20-40); Mean Corpuscular Hemoglobin 28.9 pg (27.0-33.0); Mean Corpuscular Volume 93.4 fL (80.0-98.0); Mean Platelet Volume 10.3 fL (9.4-12.4); Monocytes Absolute Auto 0.9 X10*3/uL (0.1-1.2); Monocytes Percent Auto 6.3 % (2-11); Neutrophils Percent Auto 88.6 % (45-73); Platelet Count 430 X10*3/uL (160-400); Red Blood Count 2.87 X10*6/uL (4.60-5.80); Red Cell Distribution Width 15.9 % (11.0-16.0); White Blood Count 13.6 X10*3/uL (4.8-10.8)
[2024-09-20 23:38] LABS: Venous Blood Gas Refer to POC result
[2024-09-20 23:39] LABS: VBG Base Excess -5.6 mmol/L; VBG HCO3 21 mmol/L (22-26); VBG pCO2 46 mmHg; VBG pH 7.26 (7.32-7.43); VBG pO2 71 mmHg
[2024-09-20 23:57] LABS: Alanine Aminotransferase 10 U/L (0-40); Albumin Level 2.5 g/dL (3.5-5.0); Alkaline Phosphatase 221 U/L (39-117); Anion Gap 13 (12-20); Aspartate Amino Transferase 26 U/L (5-37); B Type Natriuretic Peptide 1613 pg/mL (<100); Bilirubin Total 0.3 mg/dL (0.0-1.0); Blood Urea Nitrogen 48 mg/dL (9-16); Calcium 7.9 mg/dL (8.4-10.2); Carbon Dioxide 23 mmol/L (22-29); Chloride 97 mmol/L (96-108); Creatinine Clr Calc Pharmacy 22.5; Estimated Glomerular Filt Rate 16; Glucose Random 373 mg/dL (60-115); Potassium 4.7 mmol/L (3.3-5.1); Sodium 128 mmol/L (135-145); Total Protein 7.1 g/dL (6.5-8.0)
--- NOTE | 2024-09-20 23:57 | PC.NURSE ---
primary rn and provider made aware of critical labs.
[2024-09-21] VITALS (27 sets, daily range): BP systolic 80–135; BP diastolic 42–82; PULSE 62–86; RESP 15–28; TEMP 34.8–37.2; O2SAT 92–100; BMI 40.6
--- NOTE | 2024-09-21 00:27 | PC.NURSE ---
walking in pt's room multiple times tonight, pt has NC on top of forehead. replaced x3
[2024-09-21 00:43] LABS: Lactic Acid 1.1 mmol/L (0.5-2.0)
[2024-09-21] MEDS: Furosemide 40 MG/4 ML VIAL IVPUSH (00:53)
[2024-09-21] MEDS: cefTRIAXone sodium 1 GM VIAL IVPUSH (00:53)
[2024-09-21] MEDS: Insulin Lispro 100 UNIT/ML 3 ML VIAL 10 UNIT SUBCUT (00:53)
--- NOTE | 2024-09-21 01:06 | PC.NURSE ---
NC off face again, oxymask placed , 4L 98%
[2024-09-21 01:59] LABS: Influenza A PCR NEGATIVE (Negative); Influenza B PCR NEGATIVE (Negative); Resp Syncy Virus RNA Qual PCR NEGATIVE (Negative); SARS COV2 PCR INHOUSE NEGATIVE (Negative)
[2024-09-21] MEDS: LORazepam 2 MG/ML VIAL 1 MG IVPUSH (03:11)
--- NOTE | 2024-09-21 05:36 | PC.RT ---
Patient refuses BIPAP. Patient removing lines and O2, stating I cannot sleep with this stuff on . RN made aware. Both this RT and the RN educated patient, he still refuses BIPAP. Patient instructed to call if he wishes to wear device.
--- NOTE | 2024-09-21 06:40 | PC.NURSE ---
pt resting comfortably after occ med physician of ativan, pt kept oxymask on face, O2 remained >95%
[2024-09-21 07:15] LABS: Glucose, Whole Blood 206 mg/dL (60-115)
--- NOTE | 2024-09-21 07:27 | PC.NURSE ---
Pt is altered, unable to follow commands. plus 3 pitting edema through upper thorax. Oxymask in place. Opens eyes to name called. Donya MM. Mouth breathing. NSR on monitr. Hospital bed called for for full bed change and better assessment (unable to roll patient in bed). IV patent. wrapped.
--- NOTE | 2024-09-21 07:51 | PC.NURSE ---
transfered to hospital bed. LS minimal air movenet and wheezing. pt was able to engage slightly, counting to 3 with staff. but mainly unable to follow commands to answer questions.
--- NOTE | 2024-09-21 07:57 | PC.NURSE ---
dressing applied to stage 1 breakdown on buttocks and repositioned.
[2024-09-21 08:22] LABS: Venous Blood Gas Refer to POC result
[2024-09-21 08:22] LABS: VBG Base Excess -6.4 mmol/L; VBG HCO3 23 mmol/L (22-26); VBG pCO2 65 mmHg; VBG pH 7.15 (7.32-7.43); VBG pO2 53 mmHg
--- NOTE | 2024-09-21 08:33 | PC.NURSE ---
May Melissa, on phone, Mom. STates baseline is axox3 and able to state needs.
--- NOTE | 2024-09-21 09:13 | PC.NURSE ---
Pt remains altered.. 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 Plan is to bladder scan and move towards dialysis.
--- NOTE | 2024-09-21 09:35 | P.CONNP_ITS ---
History of Present Illness Reason for Consult Consult date: 09/21/24 Chief Complaint Chief complaint: Hypoxia History of Present Illness Narrative: 44 y/o male with a medical history of HTN, HLD, CKD3, polysubstance dependence, PVD. 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 hospitalized 08/29-09/20, now ESRD patient on HD with anasarca, had new onset afib with RVR and pericarditis, +utox while hospitalized. He was discharged 09/20 afternoon home via ambulance. Per report, pt did not get into house, had panic attack and difficulty breathing and was brought back to the ED 09/20 evening. He had had HD earlier that day. he is obtunded and minimally responsive to sternal rub (opens eyes but does not verbally respond. hypoxic in ED and requiring supplemental oxygen continues to have lower extremity pitting edema and abdominal pitting edema urine prot/creat ratio 7.441 on 08/29. No blood in urine from 08/29 CT abd/pelvis on 08/29 - unremarkable kidneys/ureters TTE on 09/03 without obvious valvular pathology labs 09/20 at 23:30 were stable- BUN 48 (previous that day prior to HD 62). Review of Systems Review of Systems Yes Unobtainable due to mental status PMFSH Past Medical History Medical History Constipation Callus of foot Seizure Polysubstance abuse CKD (chronic kidney disease) stage 3, GFR 30-59 ml/min Foot osteomyelitis, left Amputation of toe of right foot Diabetic ulcer of right foot Hyperglycemia due to type 2 diabetes mellitus Renal failure Sleep apnea Diabetes HTN (hypertension) Surgical History Surgical History History of surgical procedure (~04/24/23) Social History Social History Household Members: Spouse and Family Household Members Other:: Pt and live with his mother Housing: Apartment Do you presently have visiting nurse or other home services: No Alcohol intake: never Comment: camera in room d/t patient mom using vape in room and patient w/wildlife removal specialist Patient Tobacco Use Status: Current everyday Tobacco user Tobacco use type: Cigarette Years Smoked: 33 Smoked in Last 30 Days: No e-Cigarette/Vaping Use: Currently Using Use of substances other than those prescribed or required for medical reasons: No Substance Use Type: Heroin Advance Directives: No Advance Directives Information Provided: Yes Do you have a plan to hurt others: No Plan service: No Meds Allergies Allergy/AdvReac Type Severity Reaction Status Date / Time No Known Allergies Allergy Verified 09/20/24 21:36 [No Known Allergies*] Active Medications: Current Medications Acetaminophen (Acetaminophen 325 Mg Tablet) 650 mg PO Q6H PRN PRN Reason: Pain, Mild (Pain Scale 1-3), fever or headache Buprenorphine/Naloxone (Buprenorphine/Naloxone 8/2 Mg Film) 1 film SUBLINGUAL TID@0800,1400,2100 [facility] Calcium Carbonate (Calcium Carbonate 750 Mg Tab.Chew) 750 mg PO Q4H PRN PRN Reason: Heartburn Heparin Sodium (Porcine) (Heparin Sodium,Porcine 5,000 Unit/Ml Vial) 5,000 unit INTRACATH TUTHSA@1645 [facility] Insulin Human Lispro (Insulin Lispro 100 Unit/Ml 3 Ml Vial) [facility]; Protocol Magnesium Hydroxide (Milk Of Magnesia 30 Ml Oral.Susp) 30 ml PO DAILY PRN PRN Reason: Constipation Melatonin (Melatonin 3 Mg Tablet) 6 mg PO BEDTIME PRN PRN Reason: Insomnia Ondansetron HCl (Ondansetron Hcl 4 Mg/2 Ml Vial) 4 mg IVPUSH Q8H PRN PRN Reason: Nausea and Vomiting Oxycodone HCl (Oxycodone Hcl Immed Release 5 Mg Tablet) 5 mg PO Q6H PRN PRN Reason: Pain, Severe (Pain Scale 7-10) Sodium Chloride (0.9 % Sodium Chloride Flush 3 Ml Syringe) 3 ml IVFLUSH [facility] Home Medications ?Medication ?Instructions ?Recorded ?Confirmed ?Last Taken ?Type prednisone 10 mg tablet See Taper PO DAILY 09/21/24 09/21/24 09/20/24 History Physical Exam Vital Signs: Last Vital Signs Temp 98.9 F 09/21/24 08:25 Pulse 76 09/21/24 08:25 Resp 20 09/21/24 08:25 BP 104/54 L 09/21/24 08:25 Pulse Ox 97 09/21/24 08:25 O2 Del Method Oxymask 09/21/24 08:25 O2 Flow Rate 7 09/21/24 08:25 Oxygen Flow Rate 4 09/20/24 21:34 BMI result Body Mass Index 26.6 Const General: patient obtunded Orientation/consciousness: patient obtunded Resp Effort & Inspection: labored Auscultation: clear to auscultation bilaterally (anterior lungs clear to auscultation) Cardio Rate: tachycardic Rhythm: regular rhythm Heart sounds: S1 normal heart sound present and S2 normal heart sound present GI Other: pitting edema across lower abdomen Inspection: Yes Abdominal wall edema Palpation (GI): Soft to palpation and nontender Scrotum: scrotal swelling Skin Rashes: no rashes Neuro General: patient obtunded Extrem General: Yes edema (lower extremity pitting edema +2) Results Lab Results 09/20/24 23:30 09/20/24 23:30 Lab results: Chemistry 09/20/24 23:30 Sodium 128 L Potassium 4.7 Carbon Dioxide 23 BUN 48 H Creatinine 4.09 H* Calcium 7.9 L Hematology 09/20/24 23:30 WBC 13.6 H Hgb 8.3 L Plt Count 430 H Assessment and Plan (1) ESRD (end stage renal disease) on dialysis: Status: Acute (2) Acute hypoxemic respiratory failure: Status: Acute Plan Pt with natural progression of CKD 2/2 diabetic nephropathy tested positive for cocaine multiple occasions last admission, cocaine-induced injury may have also been contributory pt hypervolemic today with hypoxia will get HD today BUN is improved so obtundation likely not related to uremia HD M, W, F (plan for HD today) H&H 8.3 and 27, procrit last administered on 09/13, will administer 10,000units today potassium within normal limits Calcium 8.0, PTH 746. Calcitriol 0.5 daily Phosphorous elevated at 5.5, calcium acetate 667mg x2 pills TID with meals (will restart once patient able to take PO) patient remains fluid-overloaded, will continue to remove 2-3L as tolerated with HD patient has permacath (right IJ) in place without erythema, dressing intact Continue close monitoring of electrolytes, blood pressure, I&O avoid nephrotoxic substance will continue to follow Discussed with Dr Yañez Procedures Date of Service Date of Service: 09/21/24
--- NOTE | 2024-09-21 09:36 | PM.IMHP ---
History of Present Illness Date of Service: 09/21/24 Chief Complaint: Altered mentation, fluid overload A 44 years old HTN, HLD, DMII, Polysubstance abuse, PVD and new ESRD on HD, COPD, Anemia requiring transfusion, Right BKA among others who was discharged home on 09/20. upon arrival home the patient had panic attack with reported hypoxia and he was brought back to the hospital. repeated images consistent with pleural effusion. He was noted to have new sacral edema with recurrence of scrotal edema. He was altered at time of interview with blood work showing hyponatremia and elevated BNP. Patient could not contribute to HPI as he was altered after receiving Ativan in ED. Will be admitted for further work up and management. [facility] Medical History Constipation Callus of foot Seizure Polysubstance abuse CKD (chronic kidney disease) stage 3, GFR 30-59 ml/min Foot osteomyelitis, left Amputation of toe of right foot Diabetic ulcer of right foot Hyperglycemia due to type 2 diabetes mellitus Renal failure Sleep apnea Diabetes HTN (hypertension) Surgical History History of surgical procedure (~04/24/23) Social History Household Members: Spouse and Family Household Members Other:: Pt and live with his mother Housing: Apartment Do you presently have visiting nurse or other home services: No Alcohol intake: never Comment: camera in room d/t patient mom using vape in room and patient w/benefits analyst Patient Tobacco Use Status: Current everyday Tobacco user Tobacco use type: Cigarette Years Smoked: 33 Smoked in Last 30 Days: No e-Cigarette/Vaping Use: Currently Using Use of substances other than those prescribed or required for medical reasons: No Substance Use Type: Heroin Advance Directives: No Advance Directives Information Provided: Yes Do you have a plan to hurt others: No Plan service: No Meds Allergies Allergy/AdvReac Type Severity Reaction Status Date / Time No Known Allergies Allergy Verified 09/20/24 21:36 [No Known Allergies*] Active Medications: Current Medications Acetaminophen (Acetaminophen 325 Mg Tablet) 650 mg PO Q6H PRN PRN Reason: Pain, Mild (Pain Scale 1-3), fever or headache Buprenorphine/Naloxone (Buprenorphine/Naloxone 8/2 Mg Film) 1 film SUBLINGUAL TID@0800,1400,2100 [facility] Calcium Carbonate (Calcium Carbonate 750 Mg Tab.Chew) 750 mg PO Q4H PRN PRN Reason: Heartburn Heparin Sodium (Porcine) (Heparin Sodium,Porcine 5,000 Unit/Ml Vial) 5,000 unit INTRACATH TUTHSA@1645 [facility] Insulin Human Lispro (Insulin Lispro 100 Unit/Ml 3 Ml Vial) 0 unit SUBCUT QIDACHS [facility]; Protocol Magnesium Hydroxide (Milk Of Magnesia 30 Ml Oral.Susp) 30 ml PO DAILY PRN PRN Reason: Constipation Melatonin (Melatonin 3 Mg Tablet) 6 mg PO BEDTIME PRN PRN Reason: Insomnia Ondansetron HCl (Ondansetron Hcl 4 Mg/2 Ml Vial) 4 mg IVPUSH Q8H PRN PRN Reason: Nausea and Vomiting Oxycodone HCl (Oxycodone Hcl Immed Release 5 Mg Tablet) 5 mg PO Q6H PRN PRN Reason: Pain, Severe (Pain Scale 7-10) Sodium Chloride (0.9 % Sodium Chloride Flush 3 Ml Syringe) 3 ml IVFLUSH [facility] Home Medications ?Medication ?Instructions ?Recorded ?Confirmed ?Last Taken ?Type prednisone 10 mg tablet See Taper PO DAILY 09/21/24 09/21/24 09/20/24 History Physical Exam Vital Signs and Narrative: Vital Signs: Last Vital Signs Temp 98.9 F 09/21/24 08:25 Pulse 76 09/21/24 08:25 Resp 20 09/21/24 08:25 BP 104/54 L 09/21/24 08:25 Pulse Ox 97 09/21/24 08:25 O2 Del Method Oxymask 09/21/24 08:25 O2 Flow Rate 7 09/21/24 08:25 Oxygen Flow Rate 4 09/20/24 21:34 BMI result Body Mass Index 26.6 Const: Other: Constitutional : altered, not responding Neck : Normal inspection, Supple Cardiovascular : RRR, no JVP, no lower extremity edema Respiratory : decreased bilateral air entry with basal crackles, no wheezes Gastrointestinal: soft, lax, Normal bowel sounds, Non tender Skin : Warm, Dry, sacral edema Neurological : altered, response to physical stimuli Results Labs 09/20/24 23:30 09/20/24 23:30 Labs: Laboratory Results - last 24 hr 09/20/24 09/20/24 09/21/24 23:30 23:34 00:22 MCV 93.4 MCH 28.9 MCHC 31.0 RDW 15.9 Plt Count 430 H MPV 10.3 Immature Gran % (Auto) 0.7 H Neut % (Auto) 88.6 H Lymph % (Auto) 4.3 L Crisp % (Auto) 6.3 Eos % (Auto) 0.0 Baso % (Auto) 0.1 Lymph # (Auto) 0.6 L Crisp # (Auto) 0.9 Eos # (Auto) 0.0 Baso # (Auto) 0.0 Abs Immat Gran (auto) 0.09 H Absolute Neuts (auto) 12.0 H Absolute Nucleated RBC 0.000 Nucleated RBC % (auto) 0.0 VBG pH 7.26 L VBG pCO2 46 VBG pO2 71 VBG HCO3 21 L VBG O2 Saturation 94.0 VBG Base Excess -5.6 Anion Gap 13 Estim Creat Clear Calc 22.5 Estimated GFR 16 POC Glucose Random Glucose 373 H* Lactic Acid 1.1 Calcium 7.9 L Total Bilirubin 0.3 AST 26 ALT 10 Alkaline Phosphatase 221 H B-Natriuretic Peptide 1613 H Total Protein 7.1 Albumin 2.5 L Influenza Type A (PCR) Influenza Type B (PCR) RSV RNA Qual (PCR) SARS-CoV-2 RNA (RT-PCR) 09/21/24 09/21/24 09/21/24 01:18 07:09 08:16 MCV MCH MCHC RDW Plt Count MPV Immature Gran % (Auto) Neut % (Auto) Lymph % (Auto) Crisp % (Auto) Eos % (Auto) Baso % (Auto) Lymph # (Auto) Crisp # (Auto) Eos # (Auto) Baso # (Auto) Abs Immat Gran (auto) Absolute Neuts (auto) Absolute Nucleated RBC Nucleated RBC % (auto) VBG pH 7.15 L* VBG pCO2 65 VBG pO2 53 VBG HCO3 23 VBG O2 Saturation 81.0 VBG Base Excess -6.4 Anion Gap Estim Creat Clear Calc Estimated GFR POC Glucose 206 H Random Glucose Lactic Acid Calcium Total Bilirubin AST ALT Alkaline Phosphatase B-Natriuretic Peptide Total Protein Albumin Influenza Type A (PCR) NEGATIVE Influenza Type B (PCR) NEGATIVE RSV RNA Qual (PCR) NEGATIVE SARS-CoV-2 RNA (RT-PCR) NEGATIVE Imaging Radiologist's Impressions: Impressions Chest X-Ray 09/20/24 22:08 IMPRESSION: *Moderate bilateral pleural effusions. *Low lung volumes. *Right internal jugular catheter terminating within the right atrium. Electronically signed by: Layo Kyle MD 09/21/2024 01:36 AM EST RP Chest CT 09/20/24 23:53 IMPRESSION: *Moderate bilateral pleural effusions with bibasilar compressive atelectasis of the lungs. Near-complete atelectasis of the left lower pulmonary lobe and significant atelectasis of the right lower pulmonary lobe. *Partial visualization of endplate irregularity and erosive changes at C6-C7. Findings could represent discogenic endplate changes. Findings could also represent discitis-osteomyelitis and may be further evaluated with dedicated imaging of the cervical spine as clinically indicated. *Right internal jugular catheter terminating at the superior cavoatrial junction. Electronically signed by: Layo Kyle MD 09/21/2024 02:39 AM EST RP Assessment and Plan (1) Pleural effusion, bilateral: Status: Acute (2) Acute hypoxemic respiratory failure: Status: Acute Plan A 44 years old HTN, HLD, DMII, Polysubstance abuse, PVD and new ESRD on HD, COPD, Anemia requiring transfusion, Right BKA among others who was discharged home on 09/20. ACute hypoxic\hypercapnic respiratory failure 2/2 fluid overload VBG showimg mild acidemia To do urgent dialysis, nephrology team consulted ABG done by noon time showing Acute hypercapnia, patient unsafe to be in medical floor, started on Bipap and will be transferred to ICU for proper care. NPO for now Home O2 eval ESRD on HD, Nephrology to follow New onset Atrial flutter w RvR w Pericarditis , Prednisone taper and Eliquis, Amiodarone load and Metoprolol Hx drug abuse , Suboxone Type II DM, start Insulin SS DVT PPx Eliquis once can tolerate PO The patient will be admitted for 2 overnight stay pending clinical improvement and acute hypoxia resolution Quality Stroke Does the patient have a stroke diagnosis?: No VTE Prior VTE?: No VTE Risk Level:: Medical - moderate - high VTE Device Contraindication: Treatment Not Indicated VTE Drug Contraindication: N/A - Med Ordered
--- NOTE | 2024-09-21 09:41 | MHC.CM.PN ---
EMR REVIEWED, PT ADMITTED THIS MORNING 09/21/24 W/HYPOXIA, PT WAS DISCHARGED YESTERDAY 09/20 HOME W/[facility] FOR SN/PT, OUTPT HD AT [facility] -- 5:30AM CHAIR TIME, TRANSPORT WAS SET UP W/[facility] W/4:45AM FIELD SALES EXECUTIVE TIME WITH A GIVING WK SCHEDULE OF SUN/TUES/FRI W/SAME FIELD SALES EXECUTIVE/CHAIR TIME REG SCHEDULE. PT LIVES W/HIS MOTHER ARLEN, WHO WAS SPOKE TO LAST ADMISSION (DC'D 09/20) ABOUT NOT BEING ABLE TO SLEEP AT HOSPITAL, SHE HAS DONE THIS PREVIOUS ADMISSIONS AND SUSPECTED OF BRINGING PT IN STREET DRUGS INCLUDING FENTANYL/COCAINE. UNSURE OF DC PLAN AT THIS TIME, PT EVAL PENDING. PT WILL NEED AMBULANCE TRANSPORT HOME. PCP/HCP ON FILE HAVE NOT CHANGED.
--- NOTE | 2024-09-21 10:45 | PHA.MEDREC ---
Addendum entered by Ludwig Chavis 09/21/24 10:48: reviewed Original Note: Pharmacy Consult ? Medication Reconciliation Pharmacy has completed the medication reconciliation. Patient was just discharged from [facility] 09/20/24 utilized discharge packet to confirm med list.
[2024-09-21] MEDS: Lidocaine HCl 2 % Urojet 10 ML JEL.PF.APP TOPICAL (10:57)
--- NOTE | 2024-09-21 11:36 | PC.NURSE ---
coudette verde inserted with some difficuly. required smallest pelvic speculumn with light and use of sterile clamp to stabalize cath. pt never woke, groaned slightly when cath passed prostate. only 75 cc in verde bag at htis time. no bleeding throughout proceedure.
[2024-09-21 12:28] LABS: Glucose, Whole Blood 190 mg/dL (60-115)
[2024-09-21 12:34] LABS: ABG Base Excess -1.7 mmol/L; ABG HCO3 26 mmol/L (22-26); ABG pCO2 62 mmHg (32-45); ABG pH 7.23 (7.35-7.45); ABG pO2 74 mmHg (83-108)
--- NOTE | 2024-09-21 13:27 | PC.NURSE ---
patient meds that were picked up from [facility] were sealed upon arrival to ED. were brought to pharmacy and they are going to put in safe for when patient is dc.
[2024-09-21 13:36] LABS: ABG Refer to POC result
[2024-09-21 16:16] LABS: ABG Base Excess -1.3 mmol/L; ABG HCO3 26 mmol/L (22-26); ABG pCO2 57 mmHg (32-45); ABG pH 7.26 (7.35-7.45); ABG pO2 81 mmHg (83-108)
[2024-09-21 16:20] LABS: Amphetamine Screen Urine Not Detected (Not Detect); Barbiturates, Urine Not Detected (Not Detect); Benzodiazepines Screen Urine Not Detected (Not Detect); Buprenorphine Scr Positive (Not Detect); Cannabinoid Screen Urine Not Detected (Not Detect); Cocaine Screen Urine POSITIVE (Not Detect); Fentanyl, urine POSITIVE (Not Detect); Methadone Screen, Urine Positive (Not Detect); Opiate Screen Urine POSITIVE (Not Detect); Oxycodone Screen Urine Positive (Not Detect); Phencyclidine Screen Urine Not Detected (Not Detect)
[2024-09-21 16:31] LABS: Glucose, Whole Blood 155 mg/dL (60-115)
--- NOTE | 2024-09-21 16:52 | W.PM.CCCN ---
History of Present Illness Data of Consult Service Date: 09/21/24 Primary Care Provider: Cristina Stover MD [facility] Reason for consult: Altered mental status 44-year-old male with past medical history of polysubstance abuse, end-stage renal disease on maintenance, diabetes mellitus, hypertension, hyperlipidemia, COPD, right leg BKA had a prolonged hospital stay and was discharged home yesterday presents back to the hospital with shortness of breath and altered mental status. Apparently even when the patient was in the hospital there was a drug screen which tested positive for cocaine on 09/16/2024; UDS today again tested positive for multiple drugs including cocaine, methadone, fentanyl. His mentation was very poor in the ED, with CO2 narcosis that did not improve despite BiPAP support so MICU was consulted for admission. Review of Systems Review of Systems: Unable to obtain due to altered mental status PMFSH Past Medical History Medical History Constipation Callus of foot Seizure Polysubstance abuse CKD (chronic kidney disease) stage 3, GFR 30-59 ml/min Foot osteomyelitis, left Amputation of toe of right foot Diabetic ulcer of right foot Hyperglycemia due to type 2 diabetes mellitus Renal failure Sleep apnea Diabetes HTN (hypertension) Surgical History Surgical History History of surgical procedure (~04/24/23) Social History Social History Household Members: Spouse and Family Household Members Other:: Pt and live with his mother Housing: Apartment Do you presently have visiting nurse or other home services: No Alcohol intake: never Comment: camera in room d/t patient mom using vape in room and patient w/library information technician Patient Tobacco Use Status: Current everyday Tobacco user Tobacco use type: Cigarette Years Smoked: 33 e-Cigarette/Vaping Use: Currently Using Substance Use Type: Crack/Cocaine and Heroin service: No Meds Allergies Allergy/AdvReac Type Severity Reaction Status Date / Time No Known Allergies Allergy Verified 09/20/24 21:36 [No Known Allergies*] Active Medications: Current Medications Acetaminophen (Acetaminophen 325 Mg Tablet) 650 mg PO Q6H PRN PRN Reason: Pain, Mild (Pain Scale 1-3), fever or headache Calcium Carbonate (Calcium Carbonate 750 Mg Tab.Chew) 750 mg PO Q4H PRN PRN Reason: Heartburn Heparin Sodium (Porcine) (Heparin Sodium,Porcine 5,000 Unit/Ml Vial) 5,000 unit INTRACATH TUTHSA@1645 [facility] Insulin Human Lispro (Insulin Lispro 100 Unit/Ml 3 Ml Vial) 0 unit SUBCUT QIDACHS [facility]; Protocol Last Admin: 09/21/24 12:39 Dose: Not Given Magnesium Hydroxide (Milk Of Magnesia 30 Ml Oral.Susp) 30 ml PO DAILY PRN PRN Reason: Constipation Melatonin (Melatonin 3 Mg Tablet) 6 mg PO BEDTIME PRN PRN Reason: Insomnia Ondansetron HCl (Ondansetron Hcl 4 Mg/2 Ml Vial) 4 mg IVPUSH Q8H PRN PRN Reason: Nausea and Vomiting Oxycodone HCl (Oxycodone Hcl Immed Release 5 Mg Tablet) 5 mg PO Q6H PRN PRN Reason: Pain, Severe (Pain Scale 7-10) Sodium Chloride (0.9 % Sodium Chloride Flush 3 Ml Syringe) [facility] Medications ?Medication ?Instructions ?Recorded ?Confirmed ?Last Taken ?Type prednisone 10 mg tablet See Taper PO DAILY 09/21/24 09/21/24 09/20/24 History Physical Exam Vital Signs: Vital Signs: Last Vital Signs Temp 98.3 F 09/21/24 15:20 Pulse 80 09/21/24 15:20 Resp 19 09/21/24 15:20 BP 114/61 09/21/24 15:20 Pulse Ox 94 09/21/24 15:20 O2 Del Method BiPAP 09/21/24 15:20 O2 Flow Rate 5 09/21/24 12:39 FiO2 30 09/21/24 15:20 Oxygen Flow Rate 4 09/20/24 21:34 BMI result Body Mass Index 40.6 General: acute distress, ill appearing and tired appearing Nutritional Appearance: well nourished and overweight Eyes: appearance normal, both eyes and all related structures; Alignment and Position: alignment normal and position normal Neck: No lymphadenopathy, no thyromegaly Resp: bilateral air entry equal, crackles heard bilaterally Cardio: Regular rate, regular rhythm; Heart sounds: S1 normal heart sound present and S2 normal heart sound present GI: soft, nontender, no guarding, no hepatosplenomegaly : bladder normal to inspection, bladder normal to palpation, no renal angle tenderness Skin: no rashes or lesions noted and elasticity normal, right leg BKA Neuro: Unresponsive, opens eyes for painful stimulus Results Labs 09/20/24 23:30 09/20/24 23:30 Labs: Short CBC 09/20/24 Range/Units 23:30 WBC 13.6 H (4.8-10.8) X10*3/uL Hgb 8.3 L (14.0-18.0) g/dl Hct 26.8 L (42.0-52.0) % Plt Count 430 H (160-400) X10*3/uL BMP 09/20/24 23:30 Sodium 128 L Potassium 4.7 Chloride 97 Carbon Dioxide 23 BUN 48 H Creatinine 4.09 H* Calcium 7.9 L Liver Function 09/20/24 Range/Units 23:30 Total Bilirubin 0.3 (0.0-1.0) mg/dL AST 26 (5-37) U/L ALT 10 (0-40) U/L Alkaline Phosphatase 221 H (39-117) U/L Albumin 2.5 L (3.5-5.0) g/dL Assessment and Plan (1) Polysubstance abuse: Status: Acute (2) Cocaine intoxication: Status: Acute (3) Opioid use disorder, severe, dependence: Status: Acute (4) Cardiomyopathy: Status: Acute (5) Atrial flutter: Status: Acute (6) Paroxysmal atrial flutter: Status: Acute (7) Pericardial effusion: Status: Acute (8) Hyperglycemia due to type 2 diabetes mellitus: Qualifiers: 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 Patient has been hospitalized for almost a month from 08/29/2024 and was discharged home yesterday. He had a UDS on 09/16/2024 while he was hospitalized which tested positive for cocaine, fentanyl and the repeat UDS today 5 days later is still positive for cocaine and fentanyl. On propofol for sedation, as needed fentanyl for analgesia Close neurological status monitoring in the ICU every hour Cardiac: Blood pressure stable Respiratory: Patient has CO2 narcosis given his poor mental status and possible underlying COPD. He was placed on BiPAP support but his pH still remained around 7.25 with pCO2 around 65 without much improvement. So a decision has been made to intubate the patient and placed on ventilator support given his poor mental status GI: We will start on tube feeds Renal: End-stage renal disease: Continue maintenance hemodialysis as per Nephrology We will closely monitor I's and O's Avoid nephrotoxic medications Heme: Chronic anemia, closely monitor H&H, transfuse for hemoglobin less than 7 grams/deciliter Endocrine: Blood sugars under control Sliding scale insulin as needed Infectious disease: We will send pancultures No concerns for sepsis, any antibiotics Musculoskeletal: Decubitus ulcer prevention protocol Lines: Peripheral Prophylaxis: Heparin, pantoprazole Patient's altered mental status is secondary to drug overdose, respiratory failure is due to CO2 narcosis from poor mental status and underlying COPD. There is no concern for sepsis, patient is not started on antibiotics for the same reason. His pleural effusions are chronic. Total critical care time spent is about 60 minutes on evaluation of the patient, admitting the patient to the critical care unit, formulating critical care plan and management, close neurological status monitoring, managing the patient on an NIPPV with changes in settings based on ABGs, post intubation management, ventilator management, changing ventilator settings, close respiratory status monitoring, review of labs and images. And this time is excluding any procedural time. Total time managing care of this patient today: 60 minutes.
[2024-09-21] MEDS: 0.9 % Sodium Chloride Flush 3 ML SYRINGE IVFLUSH ×2 (17:12→20:57)
[2024-09-21] MEDS: Etomidate 20 MG/10 ML VIAL IVPUSH (17:26)
[2024-09-21] MEDS: Succinylcholine Chloride 100 MG/5 ML SYRINGE IVPUSH (17:26)
[2024-09-21] MEDS: Midazolam HCl/PF 2 MG/2 ML VIAL 4 MG IVPUSH (17:26)
[2024-09-21] MEDS: propofoL 1,000 MG/100 ML VIAL 37.38 MG IVCONT ×3 (17:30→21:48)
--- NOTE | 2024-09-21 17:31 | PC.NURSE ---
Addendum entered by Zak Betancourt RN 09/21/24 18:06: computer drafter called to ICU - patient ready for dialysis. Hemodialysis catheter right chest in place. Patient's mother updated about patient being intubated and sedated for the night. Educated about plan of care. Original Note: Patient admitted to ICU 260 at approx 1500. Plan to move to [facility] room, 252, dialysis capable. Patient very lethargic, on bipap, initially 20/5, 30%. Then changed to 15/[address] South at bedside. ABG ordered and done - viewed by MD, barely improved with 4 hours on bipap - plan to intubate. Labored breathing, on bipap at times. Report received from ED RN that since coudet catheter insertion, scrotum became very enlarged. Dr South made aware - ordered stat US, which was done. Patient moved to 252 at approx 1715. Intub[address] by Dr South at 1729, with an 8 ETT, 24cm at lip. Medicated with versed, succ, and etomidate (per JAN). RT at bedside assisting. Patient tolerated. Put on propofol drip for sedation. Restraints put on for airway safety. CX-ray done - verify ETT placement & OG tube. Viewed by Dr South - OG tube ok to use for medications.
[2024-09-21] MEDS: Rocuronium Bromide 50 MG/5 ML VIAL 100 MG IVPUSH (17:59)
[2024-09-21] MEDS: Norepinephrine Bitartrate/D5W 8 MG/250 ML PLAST..BAG 11.68 MG IVCONT (18:15)
[2024-09-21] MEDS: cefEPime HCl/D5W 2 GM/50 ML PIGGYBACK IV (19:32)
[2024-09-21] MEDS: Epoetin Alfa-epbx 10,000 UNIT/ML VIAL 10000 UNIT SUBCUT (20:55)
[2024-09-21 20:57] LABS: Glucose, Whole Blood 124 mg/dL (60-115)
[2024-09-21] MEDS: fentaNYL citrate/PF 100 MCG/2 ML VIAL 50 MCG IVPUSH (22:30)
[2024-09-22] VITALS (41 sets, daily range): BP systolic 89–138; BP diastolic 43–72; PULSE 50–88; RESP 16–24; TEMP 34.9–37.5; O2SAT 25–100; BMI 40.8
[2024-09-22] MEDS: propofoL 1,000 MG/100 ML VIAL 37.38 MG IVCONT ×4 (02:17→07:27)
[2024-09-22 04:33] LABS: VBG Base Excess 1.2 mmol/L; VBG HCO3 24 mmol/L (22-26); VBG pCO2 32 mmHg; VBG pH 7.48 (7.32-7.43); VBG pO2 49 mmHg
[2024-09-22 04:33] LABS: Venous Blood Gas Refer to POC result
[2024-09-22 04:58] LABS: MANUAL DIFF FLAG NO
[2024-09-22 05:00] LABS: Basophils Percent Auto 0.1 % (0-2); Eosinophils Absolute Auto 0.4 X10*3/uL (0.0-0.4); Hemoglobin 8.7 g/dl (14.0-18.0); Imm Gran Abs Auto 0.09 X10*3/uL (0.00-0.03); Imm Gran Pct Auto 0.6 % (0.0-0.4); Lymphocytes Absolute Auto 1.9 X10*3/uL (1.2-4.9); Lymphocytes Percent Auto 13.1 % (20-40); Mean Corpuscular HGB Conc 31.1 g/dl (31.0-36.0); Mean Corpuscular Hemoglobin 28.3 pg (27.0-33.0); Mean Corpuscular Volume 91.2 fL (80.0-98.0); Mean Platelet Volume 10.2 fL (9.4-12.4); Monocytes Absolute Auto 1.3 X10*3/uL (0.1-1.2); Neutrophils Absolute Auto 10.7 x10*3/uL (2.0-8.3); Neutrophils Percent Auto 74.2 % (45-73); Platelet Count 444 X10*3/uL (160-400); Red Blood Count 3.07 X10*6/uL (4.60-5.80); White Blood Count 14.4 X10*3/uL (4.8-10.8)
[2024-09-22 05:18] LABS: Alanine Aminotransferase 7 U/L (0-40); Albumin Level 2.1 g/dL (3.5-5.0); Alkaline Phosphatase 158 U/L (39-117); Anion Gap 14 (12-20); Aspartate Amino Transferase 36 U/L (5-37); Bilirubin Total 0.3 mg/dL (0.0-1.0); Blood Urea Nitrogen 45 mg/dL (9-16); Calcium 8.2 mg/dL (8.4-10.2); Carbon Dioxide 22 mmol/L (22-29); Chloride 100 mmol/L (96-108); Creatinine Clr Calc Pharmacy 32.4; Estimated Glomerular Filt Rate 18; Glucose Random 117 mg/dL (60-115); Magnesium 1.9 mg/dL (1.6-2.6); Phosphorus 4.4 mg/dL (2.7-4.5); Potassium 3.8 mmol/L (3.3-5.1); Sodium 132 mmol/L (135-145)
[2024-09-22] MEDS: 0.9 % Sodium Chloride Flush 3 ML SYRINGE IVFLUSH ×2 (07:19→15:36)
[2024-09-22 07:51] LABS: Glucose, Whole Blood 102 mg/dL (60-115)
--- NOTE | 2024-09-22 08:25 | P.PNNP_ITS ---
Subjective Subjective Date of Service: 09/22/24 Principal diagnosis: Paroxysmal atrial flutter, pericardial effusion. Interval history: 44 y/o male with a medical history of HTN, HLD, CKD3, polysubstance dependence, PVD. 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 hospitalized 08/29-09/20, now ESRD patient on HD with anasarca, had new onset afib with RVR and pericarditis, +utox while hospitalized. He was discharged 09/20 afternoon home via ambulance. Per report, pt did not get into house, had panic attack and difficulty breathing and was brought back to the ED 09/20 evening. He had had HD on 09/20. transferred to ICU on 09/21 for hypoxic respiratory failure and metabolic encephalopathy (positive utox screen) continues to have lower extremity pitting edema and abdominal pitting edema bilateral chronic pleural effusions with plan for thoracentesis urine prot/creat ratio 7.441 on 08/29. No blood in urine from 08/29 CT abd/pelvis on 08/29 - unremarkable kidneys/ureters TTE on 09/03 without obvious valvular pathology labs 09/20 at 23:30 were stable- BUN 48 (previous that day prior to HD 62). 09/21 (HD 09/20 afternoon/evening): sodium 132 (stable), potassium 3.8, CO2 22, BUN 45, creatinine 3.72, Ca 8.2 Physical Exam 2 Vital Signs: Vital Signs: Last Vital Signs Temp 97.2 F 09/22/24 08:00 Pulse 56 09/22/24 10:00 Resp 18 09/22/24 10:00 BP 110/63 09/22/24 10:00 Pulse Ox 97 09/22/24 10:00 O2 Del Method Mechanical Ventil ation 09/22/24 10:00 O2 Flow Rate 5 09/21/24 12:39 FiO2 21 09/22/24 10:00 Oxygen Flow Rate 4 09/20/24 21:34 BMI result Body Mass Index 40.8 Const: General: other (sedated) Resp: Other: intubated Effort & Inspection: normal respiratory effort Auscultation: rhonchi Cardio: Rate: regular rate Rhythm: regular rhythm Heart sounds: S1 normal heart sound present and S2 normal heart sound present GI: Other: pitting edema across lower abdomen Inspection: Yes Abdominal wall edema Palpation (GI): Soft to palpation and nontender : Other: verde in place Scrotum: scrotal swelling Skin: Rashes: no rashes Extrem: General: Yes edema (lower extremity pitting edema +2) Objective Data Labs 09/22/24 04:15 09/22/24 04:15 Labs: Laboratory Results - last 24 hr 09/21/24 09/21/24 09/21/24 12:23 12:24 15:50 WBC RBC Hgb Hct MCV MCH MCHC RDW Plt Count MPV Immature Gran % (Auto) Neut % (Auto) Lymph % (Auto) [place] % (Auto) Eos % (Auto) Baso % (Auto) Lymph # (Auto) [place] # (Auto) Eos # (Auto) Baso # (Auto) Abs Immat Gran (auto) Absolute Neuts (auto) Absolute Nucleated RBC Nucleated RBC % (auto) O2 Saturation 96.0 ABG pH at Pt Temp 7.23 L ABG pCO2 at Pt Temp 62 H* ABG pO2 at Pt Temp 74 L ABG HCO3 26 ABG Base Excess (Actual) -1.7 VBG pH VBG pCO2 VBG pO2 VBG HCO3 VBG O2 Saturation VBG Base Excess Sodium Potassium Chloride Carbon Dioxide Anion Gap BUN Creatinine Estim Creat Clear Calc Estimated GFR POC Glucose 190 H Random Glucose Calcium Phosphorus Magnesium Total Bilirubin AST ALT Alkaline Phosphatase Total Protein Albumin Urine Opiates Screen POSITIVE H Ur Buprenorphine Scrn Positive H Ur Oxycodone Screen Positive H Urine Methadone Screen Positive H Urine Fentanyl Screen POSITIVE H Ur Barbiturates Screen Not Detected Ur Phencyclidine Scrn Not Detected Ur Amphetamines Screen Not Detected U Benzodiazepines Scrn Not Detected Urine Cocaine Screen POSITIVE H U Marijuana (THC) Screen Not Detected 09/21/24 09/21/24 09/21/24 16:04 16:28 20:54 WBC RBC Hgb Hct MCV MCH MCHC RDW Plt Count MPV Immature Gran % (Auto) Neut % (Auto) Lymph % (Auto) [place] % (Auto) Eos % (Auto) Baso % (Auto) Lymph # (Auto) [place] # (Auto) Eos # (Auto) Baso # (Auto) Abs Immat Gran (auto) Absolute Neuts (auto) Absolute Nucleated RBC Nucleated RBC % (auto) O2 Saturation 97.0 ABG pH at Pt Temp 7.26 L ABG pCO2 at Pt Temp 57 H ABG pO2 at Pt Temp 81 L ABG HCO3 26 ABG Base Excess (Actual) -1.3 VBG pH VBG pCO2 VBG pO2 VBG HCO3 VBG O2 Saturation VBG Base Excess Sodium Potassium Chloride Carbon Dioxide Anion Gap BUN Creatinine Estim Creat Clear Calc Estimated GFR POC Glucose 155 H 124 H Random Glucose Calcium Phosphorus Magnesium Total Bilirubin AST ALT Alkaline Phosphatase Total Protein Albumin Urine Opiates Screen Ur Buprenorphine Scrn Ur Oxycodone Screen Urine Methadone Screen Urine Fentanyl Screen Ur Barbiturates Screen Ur Phencyclidine Scrn Ur Amphetamines Screen U Benzodiazepines Scrn Urine Cocaine Screen U Marijuana (THC) Screen 09/22/24 09/22/24 09/22/24 04:15 04:28 07:48 WBC 14.4 H RBC 3.07 L Hgb 8.7 L Hct 28.0 L MCV 91.2 MCH 28.3 MCHC 31.1 RDW 16.0 Plt Count 444 H MPV 10.2 Immature Gran % (Auto) 0.6 H Neut % (Auto) 74.2 H Lymph % (Auto) 13.1 L [place] % (Auto) 9.0 Eos % (Auto) 3.0 Baso % (Auto) 0.1 Lymph # (Auto) 1.9 [place] # (Auto) 1.3 H Eos # (Auto) 0.4 Baso # (Auto) 0.0 Abs Immat Gran (auto) 0.09 H Absolute Neuts (auto) 10.7 H Absolute Nucleated RBC 0.000 Nucleated RBC % (auto) 0.0 O2 Saturation ABG pH at Pt Temp ABG pCO2 at Pt Temp ABG pO2 at Pt Temp ABG HCO3 ABG Base Excess (Actual) VBG pH 7.48 H VBG pCO2 32 VBG pO2 49 VBG HCO3 24 VBG O2 Saturation Not Reportable VBG Base Excess 1.2 Sodium 132 L Potassium 3.8 Chloride 100 Carbon Dioxide 22 Anion Gap 14 BUN 45 H Creatinine 3.72 H Estim Creat Clear Calc 32.4 Estimated GFR 18 POC Glucose 102 Random Glucose 117 H Calcium 8.2 L Phosphorus 4.4 Magnesium 1.9 Total Bilirubin 0.3 AST 36 ALT 7 Alkaline Phosphatase 158 H Total Protein 6.0 L Albumin 2.1 L Urine Opiates Screen Ur Buprenorphine Scrn Ur Oxycodone Screen Urine Methadone Screen Urine Fentanyl Screen Ur Barbiturates Screen Ur Phencyclidine Scrn Ur Amphetamines Screen U Benzodiazepines Scrn Urine Cocaine Screen U Marijuana (THC) Screen Microbiology Microbiology Results: Microbiology 09/21/24 00:52 Blood - Venous Blood Culture - Preliminary No growth after 24 hours. 09/21/24 00:22 Blood - Venous Blood Culture - Preliminary No growth after 24 hours. Procedures Date of Service Date of Service: 09/22/24 Assessment & Plan Assessment and plan (1) ESRD (end stage renal disease) on dialysis: Status: Acute (2) Acute hypoxemic respiratory failure: Status: Acute (3) Anasarca: Status: Acute Plan Pt with natural progression of CKD 2/2 diabetic nephropathy, back in hospital with respiratory failure and encephalopathy (?2/2 illicit drug use) tested positive for cocaine multiple occasions last admission, cocaine-induced injury may also be contributory patient has permacath (right IJ) in place without erythema, dressing intact H&H 8.7 and 28, procrit administered 10,000 units 09/21 potassium within normal limits Calcium 8.2 09/22 Phosphorous 4.4 09/22 patient remains fluid-overloaded, will continue to remove 2-3L as tolerated with HD Will continue with Tues,Thurs,Sat HD as this is how pt is scheduled for as outpatient at [facility] Continue close monitoring of electrolytes, blood pressure, I&O avoid nephrotoxic substance will continue to follow Discussed with Dr Cagle Time Spent With Patient Time: Total time managing care of this patient today ____ minutes. Progress Note: Quality Stroke Does the patient have a stroke diagnosis?: No
--- NOTE | 2024-09-22 08:27 | PM.CCPN ---
Subjective Subjective Date of Service: 09/22/24 Critical Care Time (minutes): 40 Comment: On ventilator support this morning On propofol for sedation On Levophed for vasopressor support Physical Exam Vital Signs: Vital Signs: Last Vital Signs Temp 97.2 F 09/22/24 08:00 Pulse 60 09/22/24 08:00 Resp 16 09/22/24 08:00 BP 117/62 09/22/24 08:00 Pulse Ox 95 09/22/24 08:00 O2 Del Method Mechanical Ventil ation 09/22/24 08:00 O2 Flow Rate 5 09/21/24 12:39 FiO2 21 09/22/24 08:00 Oxygen Flow Rate 4 09/20/24 21:34 BMI result Body Mass Index 40.8 General: acute distress, ill appearing and tired appearing Nutritional Appearance: well nourished and overweight Eyes: appearance normal, both eyes and all related structures; Alignment and Position: alignment normal and position normal Neck: No lymphadenopathy, no thyromegaly Resp: bilateral air entry equal, decreased breath sounds in bilateral axillary area Cardio: Regular rate, regular rhythm; Heart sounds: S1 normal heart sound present and S2 normal heart sound present GI: soft, nontender, no guarding, no hepatosplenomegaly : bladder normal to inspection, bladder normal to palpation, no renal angle tenderness Skin: no rashes or lesions noted and elasticity normal Neuro: Sedated with propofol, no focal deficits Objective Data Labs 09/22/24 04:15 09/22/24 04:15 Labs: Laboratory Results - last 24 hr 09/21/24 09/21/24 09/21/24 12:23 12:24 15:50 WBC RBC Hgb Hct MCV MCH MCHC RDW Plt Count MPV Immature Gran % (Auto) Neut % (Auto) Lymph % (Auto) [place] % (Auto) Eos % (Auto) Baso % (Auto) Lymph # (Auto) [place] # (Auto) Eos # (Auto) Baso # (Auto) Abs Immat Gran (auto) Absolute Neuts (auto) Absolute Nucleated RBC Nucleated RBC % (auto) O2 Saturation 96.0 ABG pH at Pt Temp 7.23 L ABG pCO2 at Pt Temp 62 H* ABG pO2 at Pt Temp 74 L ABG HCO3 26 ABG Base Excess (Actual) -1.7 VBG pH VBG pCO2 VBG pO2 VBG HCO3 VBG O2 Saturation VBG Base Excess Sodium Potassium Chloride Carbon Dioxide Anion Gap BUN Creatinine Estim Creat Clear Calc Estimated GFR POC Glucose 190 H Random Glucose Calcium Phosphorus Magnesium Total Bilirubin AST ALT Alkaline Phosphatase Total Protein Albumin Urine Opiates Screen POSITIVE H Ur Buprenorphine Scrn Positive H Ur Oxycodone Screen Positive H Urine Methadone Screen Positive H Urine Fentanyl Screen POSITIVE H Ur Barbiturates Screen Not Detected Ur Phencyclidine Scrn Not Detected Ur Amphetamines Screen Not Detected U Benzodiazepines Scrn Not Detected Urine Cocaine Screen POSITIVE H U Marijuana (THC) Screen Not Detected 09/21/24 09/21/24 09/21/24 16:04 16:28 20:54 WBC RBC Hgb Hct MCV MCH MCHC RDW Plt Count MPV Immature Gran % (Auto) Neut % (Auto) Lymph % (Auto) [place] % (Auto) Eos % (Auto) Baso % (Auto) Lymph # (Auto) [place] # (Auto) Eos # (Auto) Baso # (Auto) Abs Immat Gran (auto) Absolute Neuts (auto) Absolute Nucleated RBC Nucleated RBC % (auto) O2 Saturation 97.0 ABG pH at Pt Temp 7.26 L ABG pCO2 at Pt Temp 57 H ABG pO2 at Pt Temp 81 L ABG HCO3 26 ABG Base Excess (Actual) -1.3 VBG pH VBG pCO2 VBG pO2 VBG HCO3 VBG O2 Saturation VBG Base Excess Sodium Potassium Chloride Carbon Dioxide Anion Gap BUN Creatinine Estim Creat Clear Calc Estimated GFR POC Glucose 155 H 124 H Random Glucose Calcium Phosphorus Magnesium Total Bilirubin AST ALT Alkaline Phosphatase Total Protein Albumin Urine Opiates Screen Ur Buprenorphine Scrn Ur Oxycodone Screen Urine Methadone Screen Urine Fentanyl Screen Ur Barbiturates Screen Ur Phencyclidine Scrn Ur Amphetamines Screen U Benzodiazepines Scrn Urine Cocaine Screen U Marijuana (THC) Screen 09/22/24 09/22/24 09/22/24 04:15 04:28 07:48 WBC 14.4 H RBC 3.07 L Hgb 8.7 L Hct 28.0 L MCV 91.2 MCH 28.3 MCHC 31.1 RDW 16.0 Plt Count 444 H MPV 10.2 Immature Gran % (Auto) 0.6 H Neut % (Auto) 74.2 H Lymph % (Auto) 13.1 L [place] % (Auto) 9.0 Eos % (Auto) 3.0 Baso % (Auto) 0.1 Lymph # (Auto) 1.9 [place] # (Auto) 1.3 H Eos # (Auto) 0.4 Baso # (Auto) 0.0 Abs Immat Gran (auto) 0.09 H Absolute Neuts (auto) 10.7 H Absolute Nucleated RBC 0.000 Nucleated RBC % (auto) 0.0 O2 Saturation ABG pH at Pt Temp ABG pCO2 at Pt Temp ABG pO2 at Pt Temp ABG HCO3 ABG Base Excess (Actual) VBG pH 7.48 H VBG pCO2 32 VBG pO2 49 VBG HCO3 24 VBG O2 Saturation Not Reportable VBG Base Excess 1.2 Sodium 132 L Potassium 3.8 Chloride 100 Carbon Dioxide 22 Anion Gap 14 BUN 45 H Creatinine 3.72 H Estim Creat Clear Calc 32.4 Estimated GFR 18 POC Glucose 102 Random Glucose 117 H Calcium 8.2 L Phosphorus 4.4 Magnesium 1.9 Total Bilirubin 0.3 AST 36 ALT 7 Alkaline Phosphatase 158 H Total Protein 6.0 L Albumin 2.1 L Urine Opiates Screen Ur Buprenorphine Scrn Ur Oxycodone Screen Urine Methadone Screen Urine Fentanyl Screen Ur Barbiturates Screen Ur Phencyclidine Scrn Ur Amphetamines Screen U Benzodiazepines Scrn Urine Cocaine Screen U Marijuana (THC) Screen Microbiology Microbiology Results: Microbiology 09/21/24 00:52 Blood - Venous Blood Culture - Preliminary No growth after 24 hours. 09/21/24 00:22 Blood - Venous Blood Culture - Preliminary No growth after 24 hours. Progress Note: A&P Assessment and plan (1) Polysubstance abuse: Status: Acute (2) Cocaine intoxication: Status: Acute (3) Opioid use disorder, severe, dependence: Status: Acute (4) Cardiomyopathy: Status: Acute (5) ESRD (end stage renal disease) on dialysis: Status: Acute (6) Acidosis: Status: Acute (7) Acute CVA (cerebrovascular accident): Status: Acute (8) Toxic metabolic encephalopathy: Status: Acute (9) Acute hypoxemic respiratory failure: Status: Acute (10) Pleural effusion, bilateral: Status: Acute (11) Acute hypoxemic respiratory failure: Status: Acute Plan Neuro: Acute encephalopathy possibly due to drug overdose. Patient has been hospitalized for almost a month from 08/29/2024 and was discharged home yesterday. He had a UDS on 09/16/2024 while he was hospitalized which tested positive for cocaine, fentanyl and the repeat UDS today 5 days later is still positive for cocaine and fentanyl. On propofol for sedation, as needed fentanyl for analgesia; we will taper off propofol we will Precedex to wean propofol. Close neurological status monitoring in the ICU every hour Cardiac: Cardiogenic Shock: Secondary to positive pressure ventilation and propofol Currently on Levophed support, titrate Levophed to keep map map above 65 mm Hg Respiratory: Acute respiratory failure due to CO2 narcosis Currently on ventilator support FiO2 21%, peep 5, tidal volume 400, rate [address] the patient on pressor support for weaning trials once he is off of propofol If he does well on the weaning trials with extubate the patient He has bilateral chronic pleural effusions possibly related to his end-stage renal disease, we will do a thoracentesis before extubation GI: We will start on tube feeds Renal: End-stage renal disease: Continue maintenance hemodialysis as per Nephrology, underwent a session yesterday We will closely monitor I's and O's Avoid nephrotoxic medications Heme: Chronic anemia, closely monitor H&H, transfuse for hemoglobin less than 7 grams/deciliter Endocrine: Blood sugars under control Sliding scale insulin as needed Infectious disease: Pancultures negative so far On empiric Zosyn Musculoskeletal: Decubitus ulcer prevention protocol Lines: Peripheral Prophylaxis: Heparin, pantoprazole Critical care time spent is about 50 minutes on sedation management, ventilator management, changing ventilator settings, weaning trials, vasopressor management, close hemodynamic monitoring at this time is excluding any procedural time. Quality Stroke Does the patient have a stroke diagnosis?: No VTE Prior VTE?: No VTE Risk Level:: Medical - moderate - high VTE Device Contraindication: Treatment Not Indicated VTE Drug Contraindication: N/A - Med Ordered
[2024-09-22] MEDS: Albumin Human 25 % 100 ML 133.33 ML IV ×2 (08:31→09:43)
--- NOTE | 2024-09-22 08:31 | P.CDIM_ITS ---
PROVIDER RESPONSE TEXT: To clarify, the appropriate diagnosis supported by the clinical indicators: Toxic QUERY TEXT: PHYSICIAN'S DOCUMENTATION REQUEST Date of Query: 09/22/2024 08:00 AM EST Patient Name: SOLOMON NARANJO Admit Date: 09/21/2024 Dear Mike South MD, A review of the medical record indicates additional documentation may be needed. Please review below and update the documentation accordingly. Clinical Indicators: Critical care consultation noted dated 09/21 - Plan: Acute encephalopathy possibly due to drug overdo se. Positive for cocaine and fentanyl. His mentation was very poor in the ED, altered mental status. Based on the above, please further specify, in the Progress Notes, the known or suspected type of the documented encephalopathy: Toxic Toxic metabolic Metabolic Other (explain) Clinically unable to determine (explain) Thank you, Keely Jalloh, CCS, CDIS Use of terms such as suspected, likely, concern for, or probable (associated with a specific diagnosi s that is being evaluated, monitored, or treated as if it exists) are acceptable and can be coded in the inpatient se tting, when documented at the time of discharge. Please use your independent medical judgment in providing your response. THIS QUERY IS PART OF THE PERMANENT MEDICAL RECORD
[2024-09-22] MEDS: dexmedeTOMIDidine HCL/NS 400 MCG/100 ML INFUS..BTL 31.33 MCG IVCONT ×2 (09:01→11:41)
--- NOTE | 2024-09-22 10:22 | MHC.CLN ---
PT IS INTUBATED AND SEDATED DISCUSSED AT ROUNDS WITH MD BAÑUELOS TO START RECOMMEND NEPRO AT MAX GOAL RATE 25ML/HR TO PROVIDE 1080KCALS (2067KCALS WITH SEDATION; 23KCALS/KG BASED ON CMW), 49G PROTEIN, 436ML FREE WATER FROM FORMULA HOLD WATER FLUSHES AT THIS TIME MONITOR TOLERANCE AND LYTES SEE ALSO FULL CLINICAL NUTRITION ASSESSMENT
[2024-09-22 11:44] LABS: Glucose, Whole Blood 98 mg/dL (60-115)
[2024-09-22] MEDS: cefEPime HCl/D5W 2 GM/50 ML PIGGYBACK IV ×2 (12:55→23:40)
--- NOTE | 2024-09-22 14:21 | MHC.CM.PN ---
Pt continues on ventilatory support in ICU: seen by nephro for HD management, plans for the day are thoracentesis to maximize extubation success. Pt from home w/mother and [facility] as well as [facility] on MWF for HD. + tox screen on admission. CM to follow for clinical stability
[2024-09-22] MEDS: dexmedeTOMIDidine HCL/NS 400 MCG/100 ML INFUS..BTL 18.8 MCG IVCONT (15:40)
--- NOTE | 2024-09-22 16:44 | P.PCNCC_ITS ---
Procedures Date of Service Date of Service: 09/22/24 Thoracentesis Consent for Procedure: Emergent-no informed consent obtained Indication: left-sided pleural effusion Procedure: therapeutic thoracentesis Local anesthetic used: lidocaine 1% Amount of anesthesia used (ml): 10 Bedside ultrasound used: yes, real-time guidance Preparation: sterile prep and drape Amount of fluid obtained (mL): 1,800 Fluid: cloudy Catheter size used: 18 Japanese Post procedure exam: awake, alert, normal BP, normal HR and normal SpO2 Patient tolerated procedure: well Complications: none
--- NOTE | 2024-09-22 17:27 | PC.NURSE ---
Pt rousable, opening eyes spontaneously, tracking, following commands at 1625. Sedation vacation initiated at 0900 today. After bedside thoracentesis, ordered extubation. Sales Operations Lead and RT at bedside. Pt uneventfully extubated. Oral suction provided. Pt's o2 sat 93 on room air, lower when sleeping. 3L via NC applied.
[2024-09-22 18:01] LABS: MN% 66.7 %; PMN% 33.3 %; RBC Pleural Fluid 0.002 X10*6/uL; WBC Pleural Fluid 0.175 X10*3/uL
[2024-09-22 18:10] LABS: BF Shift QC OK YES; Lymphocytes Pleural Fluid 13 %; Neutrophils Pleural Fluid 35 %; Other Cells Plerual Fl 52 %
[2024-09-22] MEDS: Norepinephrine Bitartrate/D5W 8 MG/250 ML PLAST..BAG 7.01 MG IVCONT (18:22)
[2024-09-22 18:26] LABS: Glucose, Whole Blood 79 mg/dL (60-115)
[2024-09-22 19:05] LABS: Glucose, Whole Blood 82 mg/dL (60-115)
[2024-09-22] MEDS: dexmedeTOMIDidine HCL/NS 400 MCG/100 ML INFUS..BTL 12.53 MCG IVCONT (19:09)
[2024-09-22] MEDS: Albumin Human 25 % 100 ML IV ×2 (20:43→22:24)
[2024-09-22 23:24] LABS: Glucose, Whole Blood 75 mg/dL (60-115)
[2024-09-23] VITALS (29 sets, daily range): BP systolic 110–139; BP diastolic 40–98; PULSE 82–106; RESP 15–30; TEMP 36.2–38.2; O2SAT 90–100; BMI 40.8
[2024-09-23 00:02] LABS: Glucose, Whole Blood 99 mg/dL (60-115)
[2024-09-23] MEDS: 0.9 % Sodium Chloride Flush 3 ML SYRINGE IVFLUSH ×4 (00:10→20:52)
[2024-09-23] MEDS: oxyCODONE HCl Immed Release 5 MG TABLET PO ×3 (00:29→23:30)
[2024-09-23 01:18] LABS: Glucose, Whole Blood 110 mg/dL (60-115)
[2024-09-23] MEDS: Albumin Human 25 % 100 ML IV ×2 (02:25→03:32)
[2024-09-23] MEDS: Albuterol/Iprat 2.5/0.5MG 3 ML AMPUL.NEB INHALE ×4 (02:46→19:01)
[2024-09-23] MEDS: Calcium Carbonate 750 MG TAB.CHEW PO (04:28)
[2024-09-23 04:38] LABS: VBG Base Excess -5.5 mmol/L; VBG HCO3 19 mmol/L (22-26); VBG pCO2 37 mmHg; VBG pH 7.32 (7.32-7.43); VBG pO2 62 mmHg
[2024-09-23 04:43] LABS: Venous Blood Gas Refer to POC result
[2024-09-23 05:11] LABS: Basophils Percent Auto 0.2 % (0-2); Eosinophils Absolute Auto 0.1 X10*3/uL (0.0-0.4); Eosinophils Percent Auto 0.7 % (0-4); Hematocrit 21.9 % (42.0-52.0); Hemoglobin 7.1 g/dl (14.0-18.0); Imm Gran Abs Auto 0.06 X10*3/uL (0.00-0.03); Imm Gran Pct Auto 0.5 % (0.0-0.4); Lymphocytes Absolute Auto 0.6 X10*3/uL (1.2-4.9); Lymphocytes Percent Auto 4.7 % (20-40); MANUAL DIFF FLAG SCAN; Mean Corpuscular HGB Conc 32.4 g/dl (31.0-36.0); Mean Corpuscular Hemoglobin 29.5 pg (27.0-33.0); Mean Corpuscular Volume 90.9 fL (80.0-98.0); Mean Platelet Volume 10.5 fL (9.4-12.4); Monocytes Absolute Auto 0.4 X10*3/uL (0.1-1.2); Monocytes Percent Auto 3.7 % (2-11); Neutrophils Absolute Auto 10.8 x10*3/uL (2.0-8.3); Neutrophils Percent Auto 90.2 % (45-73); Platelet Count 332 X10*3/uL (160-400); Red Blood Count 2.41 X10*6/uL (4.60-5.80); Red Cell Distribution Width 16.3 % (11.0-16.0); SCAN SMEAR FLAG 1
[2024-09-23 05:28] LABS: SLIDE REVIEW VERIFIED
[2024-09-23 05:30] LABS: Parathyroid Hormone Intact 123.3 pg/mL (8.7-77.1)
[2024-09-23 05:34] LABS: Alanine Aminotransferase 6 U/L (0-40); Albumin Level 5.1 g/dL (3.5-5.0); Alkaline Phosphatase 90 U/L (39-117); Anion Gap 23 (12-20); Aspartate Amino Transferase 28 U/L (5-37); Bilirubin Total 0.4 mg/dL (0.0-1.0); Blood Urea Nitrogen 52 mg/dL (9-16); Calcium 7.1 mg/dL (8.4-10.2); Carbon Dioxide 19 mmol/L (22-29); Chloride 95 mmol/L (96-108); Creatinine Clr Calc Pharmacy 29.9; Estimated Glomerular Filt Rate 16; Glucose Random 126 mg/dL (60-115); Magnesium 1.7 mg/dL (1.6-2.6); Phosphorus 4.7 mg/dL (2.7-4.5); Potassium 4.1 mmol/L (3.3-5.1); Sodium 133 mmol/L (135-145); Total Protein 7.6 g/dL (6.5-8.0)
[2024-09-23] MEDS: Throat Lozenge, Medicated LOZENGE 1 LOZENGE MUCOUS MEM (06:44)
[2024-09-23 07:26] LABS: pH Pleural Fluid 7.52
[2024-09-23 07:27] LABS: Glucose Pleural Fluid 107; LDH Pleural Fluid 118; Total Protein Pleural Fluid 2.4
[2024-09-23 07:28] LABS: Amylase Pleural Fluid 52; Creatinine Pleural Fluid 3.8
--- NOTE | 2024-09-23 07:40 | PM.PNNEP ---
Subjective Subjective Date of Service: 09/23/24 Principal diagnosis: Paroxysmal atrial flutter, pericardial effusion. Interval history: 44 y/o male with a medical history of HTN, HLD, CKD3, polysubstance dependence, PVD. 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 hospitalized 08/29-09/20, now ESRD patient on HD with anasarca, had new onset afib with RVR and pericarditis, +utox while hospitalized. He was discharged 09/20 afternoon home via ambulance. Per report, pt did not get into house, had panic attack and difficulty breathing and was brought back to the ED 09/20 evening. He had had HD on 09/20. transferred to ICU on 09/21 for hypoxic respiratory failure and metabolic encephalopathy (positive utox screen) continues to have lower extremity pitting edema and abdominal pitting edema bilateral chronic pleural effusions with plan for thoracentesis urine prot/creat ratio 7.441 on 08/29. No blood in urine from 08/29 CT abd/pelvis on 08/29 - unremarkable kidneys/ureters TTE on 09/03 without obvious valvular pathology labs 09/20 at 23:30 were stable- BUN 48 (previous that day prior to HD 62). 09/21 (HD 09/20 afternoon/evening): sodium 132 (stable), potassium 3.8, CO2 22, BUN 45, creatinine 3.72, Ca 8.2 Physical Exam Vital Signs: Vital Signs: Last Vital Signs Temp 98.5 F 09/23/24 08:00 Pulse 92 09/23/24 09:40 Resp 22 H 09/23/24 09:00 BP 118/52 L 09/23/24 09:40 Pulse Ox 94 09/23/24 09:00 O2 Del Method Nasal Cannula 09/23/24 09:00 O2 Flow Rate 2 09/23/24 09:00 FiO2 40 09/22/24 16:00 Oxygen Flow Rate 4 09/20/24 21:34 BMI result Body Mass Index 40.8 Const: General: no acute distress, alert and awake Resp: Other: intubated Effort & Inspection: normal respiratory effort and able to speak in complete sentences Auscultation: clear to auscultation bilaterally Cardio: Rate: regular rate Rhythm: regular rhythm Heart sounds: S1 normal heart sound present and S2 normal heart sound present GI: Other: pitting edema across lower abdomen Inspection: Yes Abdominal wall edema Palpation (GI): Soft to palpation and nontender : Other: verde in place Scrotum: scrotal swelling Skin: Rashes: no rashes Neuro: Other: no myoclonus or asterixis Extrem: General: Yes edema (lower extremity pitting edema +2) Objective Data Labs 09/23/24 04:15 09/23/24 04:15 Labs: Laboratory Results - last 24 hr 09/22/24 09/22/24 09/22/24 11:40 17:11 17:12 WBC RBC Hgb Hct MCV MCH MCHC RDW Plt Count MPV Immature Gran % (Auto) Neut % (Auto) Lymph % (Auto) [place] % (Auto) Eos % (Auto) Baso % (Auto) Lymph # (Auto) [place] # (Auto) Eos # (Auto) Baso # (Auto) Abs Immat Gran (auto) Absolute Neuts (auto) Absolute Nucleated RBC Nucleated RBC % (auto) Smear Tech's Comments VBG pH VBG pCO2 VBG pO2 VBG HCO3 VBG O2 Saturation VBG Base Excess Sodium Potassium Chloride Carbon Dioxide Anion Gap BUN Creatinine Estim Creat Clear Calc Estimated GFR POC Glucose 98 Random Glucose Calcium Phosphorus Magnesium Total Bilirubin AST ALT Alkaline Phosphatase Total Protein Albumin PTH Intact Pleural pH 7.52 Pleural WBC 0.175 Pleural RBC 0.002 Pleural Neutrophils 35 Pleural Lymphocytes 13 Pleural Other Cells 52 Pleural Creatinine 3.8 Pleural Total Protein 2.4 Pleural Albumin 1.0 Pleural LDH 118 Pleural Glucose 107 Pleural Amylase 52 09/22/24 09/22/24 09/22/24 18:22 19:01 23:20 WBC RBC Hgb Hct MCV MCH MCHC RDW Plt Count MPV Immature Gran % (Auto) Neut % (Auto) Lymph % (Auto) [place] % (Auto) Eos % (Auto) Baso % (Auto) Lymph # (Auto) [place] # (Auto) Eos # (Auto) Baso # (Auto) Abs Immat Gran (auto) Absolute Neuts (auto) Absolute Nucleated RBC Nucleated RBC % (auto) Smear Tech's Comments VBG pH VBG pCO2 VBG pO2 VBG HCO3 VBG O2 Saturation VBG Base Excess Sodium Potassium Chloride Carbon Dioxide Anion Gap BUN Creatinine Estim Creat Clear Calc Estimated GFR POC Glucose 79 82 75 Random Glucose Calcium Phosphorus Magnesium Total Bilirubin AST ALT Alkaline Phosphatase Total Protein Albumin PTH Intact Pleural pH Pleural WBC Pleural RBC Pleural Neutrophils Pleural Lymphocytes Pleural Other Cells Pleural Creatinine Pleural Total Protein Pleural Albumin Pleural LDH Pleural Glucose Pleural Amylase 09/22/24 09/23/24 09/23/24 23:57 01:14 04:15 WBC 12.0 H RBC 2.41 L D Hgb 7.1 L Hct 21.9 L D MCV 90.9 MCH 29.5 MCHC 32.4 RDW 16.3 H Plt Count 332 D MPV 10.5 Immature Gran % (Auto) 0.5 H Neut % (Auto) 90.2 H Lymph % (Auto) 4.7 L [place] % (Auto) 3.7 Eos % (Auto) 0.7 Baso % (Auto) 0.2 Lymph # (Auto) 0.6 L [place] # (Auto) 0.4 Eos # (Auto) 0.1 Baso # (Auto) 0.0 Abs Immat Gran (auto) 0.06 H Absolute Neuts (auto) 10.8 H Absolute Nucleated RBC 0.000 Nucleated RBC % (auto) 0.0 Smear Tech's Comments VERIFIED VBG pH VBG pCO2 VBG pO2 VBG HCO3 VBG O2 Saturation VBG Base Excess Sodium 133 L Potassium 4.1 Chloride 95 L Carbon Dioxide 19 L Anion Gap 23 H BUN 52 H Creatinine 4.03 H* Estim Creat Clear Calc 29.9 Estimated GFR 16 POC Glucose 99 110 Random Glucose 126 H Calcium 7.1 L D Phosphorus 4.7 H Magnesium 1.7 Total Bilirubin 0.4 AST 28 ALT 6 Alkaline Phosphatase 90 Total Protein 7.6 Albumin 5.1 H PTH Intact 123.3 H Pleural pH Pleural WBC Pleural RBC Pleural Neutrophils Pleural Lymphocytes Pleural Other Cells Pleural Creatinine Pleural Total Protein Pleural Albumin Pleural LDH Pleural Glucose Pleural Amylase 09/23/24 09/23/24 04:26 08:28 WBC RBC Hgb Hct MCV MCH MCHC RDW Plt Count MPV Immature Gran % (Auto) Neut % (Auto) Lymph % (Auto) [place] % (Auto) Eos % (Auto) Baso % (Auto) Lymph # (Auto) [place] # (Auto) Eos # (Auto) Baso # (Auto) Abs Immat Gran (auto) Absolute Neuts (auto) Absolute Nucleated RBC Nucleated RBC % (auto) Smear Tech's Comments VBG pH 7.32 VBG pCO2 37 VBG pO2 62 VBG HCO3 19 L VBG O2 Saturation 91.0 VBG Base Excess -5.5 Sodium Potassium Chloride Carbon Dioxide Anion Gap BUN Creatinine Estim Creat Clear Calc Estimated GFR POC Glucose 146 H Random Glucose Calcium Phosphorus Magnesium Total Bilirubin AST ALT Alkaline Phosphatase Total Protein Albumin PTH Intact Pleural pH Pleural WBC Pleural RBC Pleural Neutrophils Pleural Lymphocytes Pleural Other Cells Pleural Creatinine Pleural Total Protein Pleural Albumin Pleural LDH Pleural Glucose Pleural Amylase Microbiology Microbiology Results: Microbiology 09/21/24 00:52 Blood - Venous Blood Culture - Preliminary No growth after 48 hours. 09/21/24 00:22 Blood - Venous Blood Culture - Preliminary No growth after 48 hours. Procedures Date of Service Date of Service: 09/23/24 Assessment & Plan Assessment and plan (1) ESRD (end stage renal disease) on dialysis: Status: Acute (2) Acute hypoxemic respiratory failure: Status: Acute (3) Anasarca: Status: Acute Plan Pt with natural progression of CKD 2/2 diabetic nephropathy, back in hospital with respiratory failure and encephalopathy (?2/2 illicit drug use) tested positive for cocaine multiple occasions last admission and on admission this time, cocaine-induced injury may also be contributory patient has permacath (right IJ) in place without erythema, dressing intact H&H 7.1 and 21.9, procrit administered 10,000 units 09/21 potassium within normal limits Calcium 7.1 09/23, 09/23 PTH 123, calcitriol 0.25mg daily Phosphorous 4.7 09/22 metabolic acidosis, serum bicarb 19 patient remains fluid-overloaded, will continue to remove 2-3L as tolerated with HD Will continue with ,,Fri HD as this is how pt is scheduled for as outpatient at [facility]; plan for HD today Continue close monitoring of electrolytes, blood pressure, I&O avoid nephrotoxic substance will continue to follow Discussed with Dr Cagle Time Spent With Patient Time: Total time managing care of this patient today ____ minutes. Progress Note: Quality Stroke Does the patient have a stroke diagnosis?: No
--- NOTE | 2024-09-23 08:16 | P.PNCC_ITS ---
Subjective Subjective Date of Service: 09/23/24 Critical Care Time (minutes): 35 Comment: Extubated yesterday, tolerating liberation from ventilator very well Did thoracentesis with 1800 cc fluid removed prior to extubation Physical Exam 2 Vital Signs: Vital Signs: Last Vital Signs Temp 98.5 F 09/23/24 08:00 Pulse 93 09/23/24 08:00 Resp 20 09/23/24 08:00 BP 127/52 L 09/23/24 08:00 Pulse Ox 93 09/23/24 08:00 O2 Del Method Nasal Cannula 09/23/24 08:00 O2 Flow Rate 2 09/23/24 08:00 FiO2 40 09/22/24 16:00 Oxygen Flow Rate 4 09/20/24 21:34 BMI result Body Mass Index 40.8 General: Not in any acute distress, comfortable Nutritional Appearance: well nourished and overweight Eyes: appearance normal, both eyes and all related structures; Alignment and Position: alignment normal and position normal Neck: No lymphadenopathy, no thyromegaly Resp: bilateral air entry equal, occasional added sounds present in the left lung base Cardio: Regular rate, regular rhythm; Heart sounds: S1 normal heart sound present and S2 normal heart sound present GI: soft, nontender, no guarding, no hepatosplenomegaly : bladder normal to inspection, bladder normal to palpation, no renal angle tenderness Skin: no rashes or lesions noted and elasticity normal Neuro: oriented to person, oriented to place, oriented to time and moves all extremities Objective Data Labs 09/23/24 04:15 09/23/24 04:15 Labs: Laboratory Results - last 24 hr 09/22/24 09/22/24 09/22/24 11:40 17:11 17:12 WBC RBC Hgb Hct MCV MCH MCHC RDW Plt Count MPV Immature Gran % (Auto) Neut % (Auto) Lymph % (Auto) [place] % (Auto) Eos % (Auto) Baso % (Auto) Lymph # (Auto) [place] # (Auto) Eos # (Auto) Baso # (Auto) Abs Immat Gran (auto) Absolute Neuts (auto) Absolute Nucleated RBC Nucleated RBC % (auto) Smear Tech's Comments VBG pH VBG pCO2 VBG pO2 VBG HCO3 VBG O2 Saturation VBG Base Excess Sodium Potassium Chloride Carbon Dioxide Anion Gap BUN Creatinine Estim Creat Clear Calc Estimated GFR POC Glucose 98 Random Glucose Calcium Phosphorus Magnesium Total Bilirubin AST ALT Alkaline Phosphatase Total Protein Albumin PTH Intact Pleural pH 7.52 Pleural WBC 0.175 Pleural RBC 0.002 Pleural Neutrophils 35 Pleural Lymphocytes 13 Pleural Other Cells 52 Pleural Creatinine 3.8 Pleural Total Protein 2.4 Pleural Albumin 1.0 Pleural LDH 118 Pleural Glucose 107 Pleural Amylase 52 09/22/24 09/22/24 09/22/24 18:22 19:01 23:20 WBC RBC Hgb Hct MCV MCH MCHC RDW Plt Count MPV Immature Gran % (Auto) Neut % (Auto) Lymph % (Auto) [place] % (Auto) Eos % (Auto) Baso % (Auto) Lymph # (Auto) [place] # (Auto) Eos # (Auto) Baso # (Auto) Abs Immat Gran (auto) Absolute Neuts (auto) Absolute Nucleated RBC Nucleated RBC % (auto) Smear Tech's Comments VBG pH VBG pCO2 VBG pO2 VBG HCO3 VBG O2 Saturation VBG Base Excess Sodium Potassium Chloride Carbon Dioxide Anion Gap BUN Creatinine Estim Creat Clear Calc Estimated GFR POC Glucose 79 82 75 Random Glucose Calcium Phosphorus Magnesium Total Bilirubin AST ALT Alkaline Phosphatase Total Protein Albumin PTH Intact Pleural pH Pleural WBC Pleural RBC Pleural Neutrophils Pleural Lymphocytes Pleural Other Cells Pleural Creatinine Pleural Total Protein Pleural Albumin Pleural LDH Pleural Glucose Pleural Amylase 09/22/24 09/23/24 09/23/24 23:57 01:14 04:15 WBC 12.0 H RBC 2.41 L D Hgb 7.1 L Hct 21.9 L D MCV 90.9 MCH 29.5 MCHC 32.4 RDW 16.3 H Plt Count 332 D MPV 10.5 Immature Gran % (Auto) 0.5 H Neut % (Auto) 90.2 H Lymph % (Auto) 4.7 L [place] % (Auto) 3.7 Eos % (Auto) 0.7 Baso % (Auto) 0.2 Lymph # (Auto) 0.6 L [place] # (Auto) 0.4 Eos # (Auto) 0.1 Baso # (Auto) 0.0 Abs Immat Gran (auto) 0.06 H Absolute Neuts (auto) 10.8 H Absolute Nucleated RBC 0.000 Nucleated RBC % (auto) 0.0 Smear Tech's Comments VERIFIED VBG pH VBG pCO2 VBG pO2 VBG HCO3 VBG O2 Saturation VBG Base Excess Sodium 133 L Potassium 4.1 Chloride 95 L Carbon Dioxide 19 L Anion Gap 23 H BUN 52 H Creatinine 4.03 H* Estim Creat Clear Calc 29.9 Estimated GFR 16 POC Glucose 99 110 Random Glucose 126 H Calcium 7.1 L D Phosphorus 4.7 H Magnesium 1.7 Total Bilirubin 0.4 AST 28 ALT 6 Alkaline Phosphatase 90 Total Protein 7.6 Albumin 5.1 H PTH Intact 123.3 H Pleural pH Pleural WBC Pleural RBC Pleural Neutrophils Pleural Lymphocytes Pleural Other Cells Pleural Creatinine Pleural Total Protein Pleural Albumin Pleural LDH Pleural Glucose Pleural Amylase 09/23/24 04:26 WBC RBC Hgb Hct MCV MCH MCHC RDW Plt Count MPV Immature Gran % (Auto) Neut % (Auto) Lymph % (Auto) [place] % (Auto) Eos % (Auto) Baso % (Auto) Lymph # (Auto) [place] # (Auto) Eos # (Auto) Baso # (Auto) Abs Immat Gran (auto) Absolute Neuts (auto) Absolute Nucleated RBC Nucleated RBC % (auto) Smear Tech's Comments VBG pH 7.32 VBG pCO2 37 VBG pO2 62 VBG HCO3 19 L VBG O2 Saturation 91.0 VBG Base Excess -5.5 Sodium Potassium Chloride Carbon Dioxide Anion Gap BUN Creatinine Estim Creat Clear Calc Estimated GFR POC Glucose Random Glucose Calcium Phosphorus Magnesium Total Bilirubin AST ALT Alkaline Phosphatase Total Protein Albumin PTH Intact Pleural pH Pleural WBC Pleural RBC Pleural Neutrophils Pleural Lymphocytes Pleural Other Cells Pleural Creatinine Pleural Total Protein Pleural Albumin Pleural LDH Pleural Glucose Pleural Amylase Microbiology Microbiology Results: Microbiology 09/21/24 00:52 Blood - Venous Blood Culture - Preliminary No growth after 48 hours. 09/21/24 00:22 Blood - Venous Blood Culture - Preliminary No growth after 48 hours. Progress Note: A&P Assessment and plan (1) Polysubstance abuse: Status: Acute (2) Cocaine intoxication: Status: Acute (3) Opioid use disorder, severe, dependence: Status: Acute (4) Cardiomyopathy: Status: Acute (5) Hyperglycemia due to type 2 diabetes mellitus: Status: Acute (6) ESRD (end stage renal disease) on dialysis: Status: Acute (7) Acute hypoxemic respiratory failure: Status: Acute (8) Pleural effusion, bilateral: Status: Acute Plan Neuro: Acute encephalopathy possibly due to drug overdose. Patient has been hospitalized for almost a month from 08/29/2024 and was discharged home yesterday. He had a UDS on 09/16/2024 while he was hospitalized which tested positive for cocaine, fentanyl and the repeat UDS today 5 days later is still positive for cocaine and fentanyl. Mentating well this morning Close neurological status monitoring in the ICU every hour Cardiac: Cardiogenic Shock: Shock improved after removal of positive pressure ventilation Respiratory: Acute respiratory failure due to CO2 narcosis, extubated yesterday tolerating liberation from ventilator well Thoracentesis and 1.8 L of fluid removed yesterday, transudative fluid possibly secondary to end-stage renal disease GI: Oral feeds Renal: End-stage renal disease: Continue maintenance hemodialysis as per Nephrology, possibly plan for a session today We will closely monitor I's and O's Avoid nephrotoxic medications Heme: Chronic anemia, closely monitor H&H, transfuse for hemoglobin less than 7 grams/deciliter Endocrine: Blood sugars under control Sliding scale insulin as needed Infectious disease: Pancultures negative so far On empiric Zosyn Musculoskeletal: Decubitus ulcer prevention protocol Lines: Peripheral Prophylaxis: Heparin, pantoprazole Quality Stroke Does the patient have a stroke diagnosis?: No VTE Prior VTE?: No VTE Risk Level:: Medical - moderate - high VTE Device Contraindication: Treatment Not Indicated VTE Drug Contraindication: N/A - Med Ordered
[2024-09-23 08:31] LABS: Glucose, Whole Blood 146 mg/dL (60-115)
--- NOTE | 2024-09-23 10:07 | MHC.CLN ---
F/U PT EXTUBATED YESTERDAY DIET ADVANCED TO 1999DM-RECOMMEND ADDING 2GM NA LOW K+, LOW PHOS R/T ESRD ON HD MONITOR PO INTAKE
[2024-09-23 11:51] LABS: Glucose, Whole Blood 125 mg/dL (60-115)
--- NOTE | 2024-09-23 13:23 | MHC.CM.PN ---
Pt will be transferred out of ICU today: 1800 ml removed from 09/22 thoracentisis: pt from home w/mother, attends [facility] in [place] on MWF [facility] Pt will need [facility] transport to home. Pt active w/[facility].
[2024-09-23 16:30] LABS: Glucose, Whole Blood 208 mg/dL (60-115)
[2024-09-23] MEDS: Insulin Lispro 100 UNIT/ML 3 ML VIAL SUBCUT ×2 (16:43→20:52)
[2024-09-23] MEDS: Insulin Glargine,Hum.rec.anlog 100 UNIT/ML 10 ML VIAL 10 UNIT SUBCUT (16:43)
[2024-09-23] MEDS: Buprenorphine/Naloxone 8/2 mg FILM 1 FILM SUBLINGUAL ×2 (16:44→20:52)
[2024-09-23] MEDS: Multivitamin TABLET 1 TAB PO (16:44)
[2024-09-23] MEDS: Omeprazole 20 MG CAPSULE.DR PO (16:44)
[2024-09-23] MEDS: Amiodarone HCL 200 MG TABLET PO (16:44)
[2024-09-23 20:35] LABS: Glucose, Whole Blood 303 mg/dL (60-115)
[2024-09-23] MEDS: Atorvastatin Calcium 40 MG TABLET PO (20:52)
[2024-09-23] MEDS: Apixaban 5 MG TABLET PO (20:52)
--- NOTE | 2024-09-23 22:21 | HO.SKINPHOTO ---
Location: COCCYX/ R buttock Category: PI Stage: Length: Width: Depth: cm Location: Category: Stage: Length: Width: Depth: cm Location: Category: Stage: Length: Width: Depth: cm Location: Category: Stage: Length: Width: Depth: cm Location: Category: Stage: Length: Width: Depth: cm Location: Category: Stage: Length: Width: Depth: cm
[2024-09-24] VITALS (11 sets, daily range): BP systolic 114–136; BP diastolic 53–63; PULSE 89–107; RESP 16–22; TEMP 36.5–37.3; O2SAT 95–99; BMI 40.8
--- NOTE | 2024-09-24 00:44 | PC.NURSE ---
Patient alert and oriented. on tele monitor, cont pulse oxymetry added since patient is here for hypoxia. During skin assessment noticed pressure injury to coccyx and right buttock. Picture taken,triad applied, air loss bed pump initiated, wound consult entered.
[2024-09-24] MEDS: Omeprazole 20 MG CAPSULE.DR PO (06:10)
[2024-09-24 07:25] LABS: Glucose, Whole Blood 295 mg/dL (60-115)
[2024-09-24] MEDS: Buprenorphine/Naloxone 8/2 mg FILM 1 FILM SUBLINGUAL ×3 (07:35→20:28)
[2024-09-24] MEDS: Insulin Lispro 100 UNIT/ML 3 ML VIAL SUBCUT ×4 (07:35→20:28)
[2024-09-24] MEDS: Insulin Glargine,Hum.rec.anlog 100 UNIT/ML 10 ML VIAL 10 UNIT SUBCUT (07:35)
[2024-09-24] MEDS: oxyCODONE HCl Immed Release 5 MG TABLET PO ×2 (07:36→14:18)
[2024-09-24] MEDS: calcitrioL 0.25 MCG CAPSULE PO (07:36)
[2024-09-24] MEDS: Multivitamin TABLET 1 TAB PO (07:36)
[2024-09-24] MEDS: Amiodarone HCL 200 MG TABLET PO (07:36)
[2024-09-24] MEDS: Apixaban 5 MG TABLET PO ×2 (07:36→20:28)
[2024-09-24] MEDS: Albuterol/Iprat 2.5/0.5MG 3 ML AMPUL.NEB INHALE ×3 (08:08→20:10)
--- NOTE | 2024-09-24 08:35 | P.PNNP_ITS ---
Subjective Subjective Date of Service: 09/24/24 Principal diagnosis: Paroxysmal atrial flutter, pericardial effusion. Interval history: 44 y/o male with a medical history of HTN, HLD, CKD3, polysubstance dependence, PVD. 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 hospitalized 08/29-09/20, now ESRD patient on HD with anasarca, had new onset afib with RVR and pericarditis, +utox while hospitalized. He was discharged 09/20 afternoon home via ambulance. Per report, pt did not get into house, had panic attack and difficulty breathing and was brought back to the ED 09/20 evening. He had had HD on 09/20. ICU on 09/21 for hypoxic respiratory failure and metabolic encephalopathy (positive utox screen); now clinically stable was transferred to medicine floor 09/23 continues to have lower extremity pitting edema and abdominal pitting edema urine prot/creat ratio 7.441 on 08/29. No blood in urine from 08/29 CT abd/pelvis on 08/29 - unremarkable kidneys/ureters TTE on 09/03 without obvious valvular pathology He reports today he feels fine states breathing is at his baseline/comfortable denies chest pain, abdominal pain, palpitations/heart racing denies other concerns Physical Exam 2 Vital Signs: Vital Signs: Last Vital Signs Temp 98.0 F 09/24/24 07:33 Pulse 96 09/24/24 08:10 Resp 18 09/24/24 08:10 BP 132/61 09/24/24 07:33 Pulse Ox 97 09/24/24 07:33 O2 Del Method Nasal Cannula 09/24/24 07:33 O2 Flow Rate 2.0 09/24/24 07:33 FiO2 40 09/22/24 16:00 Oxygen Flow Rate 2 09/24/24 00:43 BMI result Body Mass Index 40.8 Const: General: no acute distress, alert and awake Resp: Other: intubated Effort & Inspection: normal respiratory effort and able to speak in complete sentences Auscultation: clear to auscultation bilaterally Cardio: Rate: regular rate Rhythm: regular rhythm Heart sounds: S1 normal heart sound present and S2 normal heart sound present GI: Other: pitting edema across lower abdomen Inspection: Yes Abdominal wall edema Palpation (GI): Soft to palpation and nontender : Other: verde in place Scrotum: scrotal swelling Skin: Rashes: no rashes Neuro: Other: no myoclonus or asterixis Extrem: General: Yes edema (lower extremity pitting edema +2) Objective Data Labs 09/23/24 04:15 09/23/24 04:15 Labs: Laboratory Results - last 24 hr 09/23/24 09/23/24 09/23/24 11:48 16:27 20:32 POC Glucose 125 H 208 H 303 H 09/24/24 07:19 POC Glucose 295 H Microbiology Microbiology Results: Microbiology 09/21/24 00:52 Blood - Venous Blood Culture - Preliminary No growth after 48 hours. 09/21/24 00:22 Blood - Venous Blood Culture - Preliminary No growth after 48 hours. Procedures Date of Service Date of Service: 09/24/24 Assessment & Plan Assessment and plan (1) ESRD (end stage renal disease) on dialysis: Status: Acute (2) Acute hypoxemic respiratory failure: Status: Acute (3) Anasarca: Status: Acute Plan Pt with natural progression of CKD 2/2 diabetic nephropathy, back in hospital with respiratory failure and encephalopathy (?2/2 illicit drug use) tested positive for cocaine multiple occasions last admission and on admission this time, cocaine-induced injury may also be contributory patient has permacath (right IJ) in place without erythema, dressing intact H&H 7.1 and 21.9, procrit administered 10,000 units 09/21 potassium within normal limits Calcium 7.1 09/23, 09/23 PTH 123, calcitriol 0.25mg daily Phosphorous 4.7 09/22 metabolic acidosis, serum bicarb patient remains fluid-overloaded, will continue to remove 2-3L as tolerated with HD Will continue with ,,Fri HD as this is how pt is scheduled for as outpatient at [facility] Continue close monitoring of electrolytes, blood pressure, I&O avoid nephrotoxic substance will continue to follow Discussed with Dr Cagle Time Spent With Patient Time: Total time managing care of this patient today ____ minutes. Progress Note: Quality Stroke Does the patient have a stroke diagnosis?: No
--- NOTE | 2024-09-24 09:41 | P.PNIM_ITS ---
Subjective Subjective Date of Service: 09/24/24 Interval History: no complaints Physical Exam 2 Vital Signs: Vital Signs: Last Vital Signs Temp 98.0 F 09/24/24 07:33 Pulse 96 09/24/24 09:23 Resp 18 09/24/24 08:10 BP 132/61 09/24/24 07:33 Pulse Ox 97 09/24/24 07:33 O2 Del Method Nasal Cannula 09/24/24 07:33 O2 Flow Rate 2.0 09/24/24 07:33 FiO2 40 09/22/24 16:00 Oxygen Flow Rate 2 09/24/24 00:43 BMI result Body Mass Index 40.8 Const: General: no acute distress, alert and awake Resp: Effort & Inspection: normal respiratory effort and able to speak in complete sentences Auscultation: clear to auscultation bilaterally Cardio: Rate: regular rate Rhythm: regular rhythm Heart sounds: S1 normal heart sound present and S2 normal heart sound present GI: Other: pitting edema across lower abdomen Inspection: Yes Abdominal wall edema Palpation (GI): Soft to palpation and nontender : Other: verde in place Scrotum: scrotal swelling Skin: Rashes: no rashes Neuro: Other: no myoclonus or asterixis Extrem: General: Yes edema (lower extremity pitting edema +2) Objective Data Active Medications Acetaminophen (Acetaminophen 325 Mg Tablet) 650 mg PO Q6H PRN PRN Reason: Pain, Mild (Pain Scale 1-3), fever or headache Albuterol/Ipratropium (Albuterol/Iprat 2.5/0.5mg 3 Ml Ampul.Neb) 3 ml INHALE RQ6H WHILE AWAKE [facility] Last Admin: 09/24/24 08:08 Dose: 3 ml Documented By: ANSELMO Amiodarone HCl (Amiodarone Hcl 200 Mg Tablet) 200 mg PO DAILY [facility] Last Admin: 09/24/24 07:36 Dose: 200 mg Documented By: KAI Apixaban (Apixaban 5 Mg Tablet) 5 mg PO BID [facility] Last Admin: 09/24/24 07:36 Dose: 5 mg Documented By: KAI Atorvastatin Calcium (Atorvastatin Calcium 40 Mg Tablet) 40 mg PO BEDTIME [facility] Last Admin: 09/23/24 20:52 Dose: 40 mg Documented By: CORBIN Buprenorphine/Naloxone (Buprenorphine/Naloxone 8/2 Mg Film) 1 film SUBLINGUAL TID [facility] Last Admin: 09/24/24 07:35 Dose: 1 film Documented By: KAI Calcitriol (Calcitriol 0.25 Mcg Capsule) 0.25 mcg PO DAILY [facility] Last Admin: 09/24/24 07:36 Dose: 0.25 mcg Documented By: KAI Calcium Carbonate (Calcium Carbonate 750 Mg Tab.Chew) 750 mg PO Q4H PRN PRN Reason: Heartburn Last Admin: 09/23/24 04:28 Dose: 750 mg Documented By: EZ Heparin Sodium (Porcine) (Heparin Sodium,Porcine 5,000 Unit/Ml Vial) 5,000 unit INTRACATH TUTHSA@1645 [facility] Last Admin: 09/23/24 17:02 Dose: Not Given Documented By: HARI Non-Admin Reason: should of been done in HD Insulin Glargine (Insulin Glargine,Hum.Rec.Anlog 100 Unit/Ml 10 Ml Vial) 10 unit SUBCUT DAILY [facility] Last Admin: 09/24/24 07:35 Dose: 10 unit Documented By: KAI Insulin Human Lispro (Insulin Lispro 100 Unit/Ml 3 Ml Vial) 0 unit SUBCUT QIDACHS [facility]; Protocol Last Admin: 09/24/24 07:35 Dose: 6 unit Documented By: KAI Magnesium Hydroxide (Milk Of Magnesia 30 Ml Oral.Susp) 30 ml PO DAILY PRN PRN Reason: Constipation Melatonin (Melatonin 3 Mg Tablet) 6 mg PO BEDTIME PRN PRN Reason: Insomnia Multivitamins/Vitamin C (Multivitamin Tablet) 1 tab PO DAILY [facility] Last Admin: 09/24/24 07:36 Dose: 1 tab Documented By: KAI Omeprazole (Omeprazole 20 Mg Capsule.) 20 mg PO DAILY@0630 [facility] Last Admin: 09/24/24 06:10 Dose: 20 mg Documented By: CORBIN Ondansetron HCl (Ondansetron Hcl 4 Mg/2 Ml Vial) 4 mg IVPUSH Q8H PRN PRN Reason: Nausea and Vomiting Oxycodone HCl (Oxycodone Hcl Immed Release 5 Mg Tablet) 5 mg PO Q6H PRN PRN Reason: Pain, Severe (Pain Scale 7-10) Last Admin: 09/24/24 07:36 Dose: 5 mg Documented By: KAI Sodium Chloride (0.9 % Sodium Chloride Flush 3 Ml Syringe) 3 ml IVFLUSH QSHIFT [facility] Last Admin: 09/24/24 07:36 Dose: Not Given Documented By: KAI Non-Admin Reason: Previously Administered Labs 09/23/24 04:15 09/23/24 04:15 Labs: Laboratory Results - last 24 hr 09/23/24 09/23/24 09/23/24 11:48 16:27 20:32 POC Glucose 125 H 208 H 303 H 09/24/24 07:19 POC Glucose 295 H Assessment and Plan (1) Cardiomyopathy: Status: Acute Plan 44M PMH end-stage renal disease on hemodialysis, hypertension, hyperlipidemia, cardiomyopathy EF of 40-45%, paroxysmal AFib, diabetes, polysubstance dependence, COPD, history of right BKA, wheelchair-bound was discharged on 09/20/2024 after prolonged hospitalization for acute kidney injury and initiation of hemodialysis, now end-stage renal disease in ambulance on the way home had panic attack and was hypoxic so brought back to the ED, after Ativan became hypercapnic requiring intubation ICU admission. Now extubated and downgraded to medical floor and appears back to baseline. Acute hypoxic and hypercapnic respiratory failure Resolved End-stage renal disease Continue with hemodialysis Diabetes Basal bolus insulin Paroxysmal AFib Continue amiodarone and apixaban Opiate dependence Continue Suboxone Morbid obesity Weight loss is recommended DVT prophylaxis on Eliquis Full Code reason for continued hospitalization: Safe dispo Quality Stroke Does the patient have a stroke diagnosis?: No VTE Prior VTE?: No VTE Risk Level:: Medical - moderate - high VTE Device Contraindication: Treatment Not Indicated VTE Drug Contraindication: N/A - Med Ordered
[2024-09-24 11:35] LABS: Glucose, Whole Blood 244 mg/dL (60-115)
--- NOTE | 2024-09-24 12:35 | MHC.CLN ---
F/U PATIENT EXTUBATED 09/22. ON 09/23, DIET=DIABETIC 2000 KCALS, 2 G SODIUM, LOW POTASSIUM, LOW PHOSPHORUS. PATIENT WITH ESRD, ON HEMODIALYSIS. INCREASED NUTRITION NEEDS DUE PRESSURE INJURIES TO COCCYX AND RIGHT BUTTOCK.. WILL CONSIDER NUTRITIONAL SUPPLEMENT IF POOR PO.
--- NOTE | 2024-09-24 13:24 | MHC.CM.PN ---
Addendum entered by Melissa Cooney RN 09/24/24 14:51: Confirmed w/ [facility] - transportation arranged for HD this week 09/26, 09/28 and 10/01 [facility] 430am for 530 am chair time. Schedule change d/t holiday week, will resume MWF the following week. Original Note: Per MD rounds patient not medically cleared for dc, still requiring supplemental O2. PT recommending STR. CM met with patient and mother at bedside to discuss. Patient declines STR. Prefers to go home w/ [facility] for PT/SN. Mother will care for patient. Feels that eventually he will need electric w/c, omega lift and hospital bed. CM called [facility] who will coordinate this equipment request. Hospital follow up scheduled w/ Cris Cboos NP. Patient and mother aware. They will schedule transport w/ PT 1. CM will continue to follow.
--- NOTE | 2024-09-24 15:26 | P.PNADD_ITS ---
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 He was awake, alert. Reporting he does not know what occurred and states he never made it into his home before being [place] [facility] Requesting to restart Suboxone. Last oxycodone dose was the previous evening. Reporting mild withdrawal sx--body and bone aches Review of Systems Constitutional: Reports as per HPI Mental Status Exam Mental Status Exam Patient Appearance: Appropriate Level of Consciousness: Awake, Appropriate and Alert Patient Behavior: Appropriate Mood Description: Calm Speech Pattern: Clear Diagnostics Vital Signs (24Hr): Vital Signs - 24 hr 09/23/24 16:00 09/23/24 16:00 09/23/24 16:01 Temperature 97.4 F 97.2 F Pulse Rate 99 99 82 Respiratory Rate 17 17 18 Blood Pressure 117/56 L 117/56 L Pulse Oximetry 94 94 Oxygen Delivery Method Nasal Cannula Nasal Cannula Oxygen Flow Rate 3 3 09/23/24 19:02 09/23/24 19:50 09/23/24 20:00 Temperature 98.5 F 98.5 F Pulse Rate 93 96 96 Respiratory Rate 18 20 20 Blood Pressure 125/58 L 125/58 L Pulse Oximetry 96 96 Oxygen Delivery Method Nasal Cannula Nasal Cannula Oxygen Flow Rate 2 2 09/23/24 23:46 09/24/24 00:43 09/24/24 04:00 Temperature 98.6 F 98.9 F Pulse Rate 93 89 Respiratory Rate 20 22 H Blood Pressure 122/58 L 128/58 L Pulse Oximetry 97 98 97 Oxygen Delivery Method Nasal Cannula Nasal Cannula Nasal Cannula Oxygen Flow Rate 2 2 09/24/24 07:33 09/24/24 08:10 09/24/24 09:23 Temperature 98.0 F Pulse Rate 91 96 96 Respiratory Rate 18 18 Blood Pressure 132/61 Pulse Oximetry 97 Oxygen Delivery Method Nasal Cannula Oxygen Flow Rate 2.0 09/24/24 11:38 09/24/24 15:13 Temperature 98.4 F Pulse Rate 95 93 Respiratory Rate 18 18 Blood Pressure 128/59 L Pulse Oximetry 99 Oxygen Delivery Method Nasal Cannula Oxygen Flow Rate 2.0 BMI result Body Mass Index 40.8 Labs 09/23/24 04:15 09/23/24 04:15 Labs: Laboratory Results - last 48 hr 09/22/24 09/22/24 09/22/24 17:11 17:12 18:22 WBC RBC Hgb Hct MCV MCH MCHC RDW Plt Count MPV Immature Gran % (Auto) Neut % (Auto) Lymph % (Auto) [place] % (Auto) Eos % (Auto) Baso % (Auto) Lymph # (Auto) [place] # (Auto) Eos # (Auto) Baso # (Auto) Abs Immat Gran (auto) Absolute Neuts (auto) Absolute Nucleated RBC Nucleated RBC % (auto) Smear Tech's Comments VBG pH VBG pCO2 VBG pO2 VBG HCO3 VBG O2 Saturation VBG Base Excess Sodium Potassium Chloride Carbon Dioxide Anion Gap BUN Creatinine Estim Creat Clear Calc Estimated GFR POC Glucose 79 Random Glucose Calcium Phosphorus Magnesium Total Bilirubin AST ALT Alkaline Phosphatase Total Protein Albumin PTH Intact Pleural pH 7.52 Pleural WBC 0.175 Pleural RBC 0.002 Pleural Neutrophils 35 Pleural Lymphocytes 13 Pleural Other Cells 52 Pleural Creatinine 3.8 Pleural Total Protein 2.4 Pleural Albumin 1.0 Pleural LDH 118 Pleural Glucose 107 Pleural Amylase 52 09/22/24 09/22/24 09/22/24 19:01 23:20 23:57 WBC RBC Hgb Hct MCV MCH MCHC RDW Plt Count MPV Immature Gran % (Auto) Neut % (Auto) Lymph % (Auto) [place] % (Auto) Eos % (Auto) Baso % (Auto) Lymph # (Auto) [place] # (Auto) Eos # (Auto) Baso # (Auto) Abs Immat Gran (auto) Absolute Neuts (auto) Absolute Nucleated RBC Nucleated RBC % (auto) Smear Tech's Comments VBG pH VBG pCO2 VBG pO2 VBG HCO3 VBG O2 Saturation VBG Base Excess Sodium Potassium Chloride Carbon Dioxide Anion Gap BUN Creatinine Estim Creat Clear Calc Estimated GFR POC Glucose 82 75 99 Random Glucose Calcium Phosphorus Magnesium Total Bilirubin AST ALT Alkaline Phosphatase Total Protein Albumin PTH Intact Pleural pH Pleural WBC Pleural RBC Pleural Neutrophils Pleural Lymphocytes Pleural Other Cells Pleural Creatinine Pleural Total Protein Pleural Albumin Pleural LDH Pleural Glucose Pleural Amylase 09/23/24 09/23/24 09/23/24 01:14 04:15 04:26 WBC 12.0 H RBC 2.41 L D Hgb 7.1 L Hct 21.9 L D MCV 90.9 MCH 29.5 MCHC 32.4 RDW 16.3 H Plt Count 332 D MPV 10.5 Immature Gran % (Auto) 0.5 H Neut % (Auto) 90.2 H Lymph % (Auto) 4.7 L [place] % (Auto) 3.7 Eos % (Auto) 0.7 Baso % (Auto) 0.2 Lymph # (Auto) 0.6 L [place] # (Auto) 0.4 Eos # (Auto) 0.1 Baso # (Auto) 0.0 Abs Immat Gran (auto) 0.06 H Absolute Neuts (auto) 10.8 H Absolute Nucleated RBC 0.000 Nucleated RBC % (auto) 0.0 Smear Tech's Comments VERIFIED VBG pH 7.32 VBG pCO2 37 VBG pO2 62 VBG HCO3 19 L VBG O2 Saturation 91.0 VBG Base Excess -5.5 Sodium 133 L Potassium 4.1 Chloride 95 L Carbon Dioxide 19 L Anion Gap 23 H BUN 52 H Creatinine 4.03 H* Estim Creat Clear Calc 29.9 Estimated GFR 16 POC Glucose 110 Random Glucose 126 H Calcium 7.1 L D Phosphorus 4.7 H Magnesium 1.7 Total Bilirubin 0.4 AST 28 ALT 6 Alkaline Phosphatase 90 Total Protein 7.6 Albumin 5.1 H PTH Intact 123.3 H Pleural pH Pleural WBC Pleural RBC Pleural Neutrophils Pleural Lymphocytes Pleural Other Cells Pleural Creatinine Pleural Total Protein Pleural Albumin Pleural LDH Pleural Glucose Pleural Amylase 09/23/24 09/23/24 09/23/24 08:28 11:48 16:27 WBC RBC Hgb Hct MCV MCH MCHC RDW Plt Count MPV Immature Gran % (Auto) Neut % (Auto) Lymph % (Auto) [place] % (Auto) Eos % (Auto) Baso % (Auto) Lymph # (Auto) [place] # (Auto) Eos # (Auto) Baso # (Auto) Abs Immat Gran (auto) Absolute Neuts (auto) Absolute Nucleated RBC Nucleated RBC % (auto) Smear Tech's Comments VBG pH VBG pCO2 VBG pO2 VBG HCO3 VBG O2 Saturation VBG Base Excess Sodium Potassium Chloride Carbon Dioxide Anion Gap BUN Creatinine Estim Creat Clear Calc Estimated GFR POC Glucose 146 H 125 H 208 H Random Glucose Calcium Phosphorus Magnesium Total Bilirubin AST ALT Alkaline Phosphatase Total Protein Albumin PTH Intact Pleural pH Pleural WBC Pleural RBC Pleural Neutrophils Pleural Lymphocytes Pleural Other Cells Pleural Creatinine Pleural Total Protein Pleural Albumin Pleural LDH Pleural Glucose Pleural Amylase 09/23/24 09/24/24 09/24/24 20:32 07:19 11:30 WBC RBC Hgb Hct MCV MCH MCHC RDW Plt Count MPV Immature Gran % (Auto) Neut % (Auto) Lymph % (Auto) [place] % (Auto) Eos % (Auto) Baso % (Auto) Lymph # (Auto) [place] # (Auto) Eos # (Auto) Baso # (Auto) Abs Immat Gran (auto) Absolute Neuts (auto) Absolute Nucleated RBC Nucleated RBC % (auto) Smear Tech's Comments VBG pH VBG pCO2 VBG pO2 VBG HCO3 VBG O2 Saturation VBG Base Excess Sodium Potassium Chloride Carbon Dioxide Anion Gap BUN Creatinine Estim Creat Clear Calc Estimated GFR POC Glucose 303 H 295 H 244 H Random Glucose Calcium Phosphorus Magnesium Total Bilirubin AST ALT Alkaline Phosphatase Total Protein Albumin PTH Intact Pleural pH Pleural WBC Pleural RBC Pleural Neutrophils Pleural Lymphocytes Pleural Other Cells Pleural Creatinine Pleural Total Protein Pleural Albumin Pleural LDH Pleural Glucose Pleural Amylase Imaging Radiology Impressions: ITS Impressions Chest X-Ray 09/20/24 22:08 IMPRESSION: *Moderate bilateral pleural effusions. *Low lung volumes. *Right internal jugular catheter terminating within the right atrium. Electronically signed by: Layo Kyle MD 09/21/2024 01:36 AM EST RP Chest CT 09/20/24 23:53 IMPRESSION: *Moderate bilateral pleural effusions with bibasilar compressive atelectasis of the lungs. Near-complete atelectasis of the left lower pulmonary lobe and significant atelectasis of the right lower pulmonary lobe. *Partial visualization of endplate irregularity and erosive changes at C6-C7. Findings could represent discogenic endplate changes. Findings could also represent discitis-osteomyelitis and may be further evaluated with dedicated imaging of the cervical spine as clinically indicated. *Right internal jugular catheter terminating at the superior cavoatrial junction. Electronically signed by: Layo Kyle MD 09/21/2024 02:39 AM EST RP Scrotum Ultrasound 09/21/24 16:29 IMPRESSION: Mild hydrocele on the right, Scrotal thickening Mild microlithiasis bilaterally Electronically signed by: Elisabeth Rooney MD 09/21/2024 06:59 PM EST RP Chest X-Ray 09/21/24 17:25 IMPRESSION: 1. Support tubes and catheters are positioned as above. 2. There are moderately large bibasilar pleural effusions, with adjacent bibasilar compressive atelectasis. 3. There is pulmonary vascular congestion. Electronically signed by: Rocky Stroud MD 09/21/2024 09:53 PM EST RP Medications Medications Current Medications Acetaminophen (Acetaminophen 325 Mg Tablet) 650 mg PO Q6H PRN PRN Reason: Pain, Mild (Pain Scale 1-3), fever or headache Albuterol/Ipratropium (Albuterol/Iprat 2.5/0.5mg 3 Ml Ampul.Neb) 3 ml INHALE RQ6H WHILE AWAKE [facility] Last Admin: 09/24/24 15:13 Dose: 3 ml Amiodarone HCl (Amiodarone Hcl 200 Mg Tablet) 200 mg PO DAILY [facility] Last Admin: 09/24/24 07:36 Dose: 200 mg Apixaban (Apixaban 5 Mg Tablet) 5 mg PO BID [facility] Last Admin: 09/24/24 07:36 Dose: 5 mg Atorvastatin Calcium (Atorvastatin Calcium 40 Mg Tablet) 40 mg PO BEDTIME [facility] Last Admin: 09/23/24 20:52 Dose: 40 mg Buprenorphine/Naloxone (Buprenorphine/Naloxone 8/2 Mg Film) 1 film SUBLINGUAL TID [facility] Last Admin: 09/24/24 14:18 Dose: 1 film Calcitriol (Calcitriol 0.25 Mcg Capsule) 0.25 mcg PO DAILY [facility] Last Admin: 09/24/24 07:36 Dose: 0.25 mcg Calcium Carbonate (Calcium Carbonate 750 Mg Tab.Chew) 750 mg PO Q4H PRN PRN Reason: Heartburn Last Admin: 09/23/24 04:28 Dose: 750 mg Heparin Sodium (Porcine) (Heparin Sodium,Porcine 5,000 Unit/Ml Vial) 5,000 unit INTRACATH TUTHSA@1645 [facility] Last Admin: 09/23/24 17:02 Dose: Not Given Insulin Glargine (Insulin Glargine,Hum.Rec.Anlog 100 Unit/Ml 10 Ml Vial) 10 unit SUBCUT DAILY [facility] Last Admin: 09/24/24 07:35 Dose: 10 unit Insulin Human Lispro (Insulin Lispro 100 Unit/Ml 3 Ml Vial) 0 unit SUBCUT QIDACHS [facility]; Protocol Last Admin: 09/24/24 11:50 Dose: 4 unit Magnesium Hydroxide (Milk Of Magnesia 30 Ml Oral.Susp) 30 ml PO DAILY PRN PRN Reason: Constipation Melatonin (Melatonin 3 Mg Tablet) 6 mg PO BEDTIME PRN PRN Reason: Insomnia Multivitamins/Vitamin C (Multivitamin Tablet) 1 tab PO DAILY [facility] Last Admin: 09/24/24 07:36 Dose: 1 tab Omeprazole (Omeprazole 20 Mg Capsule.Dr) 20 mg PO DAILY@0630 [facility] Last Admin: 09/24/24 06:10 Dose: 20 mg Ondansetron HCl (Ondansetron Hcl 4 Mg/2 Ml Vial) 4 mg IVPUSH Q8H PRN PRN Reason: Nausea and Vomiting Oxycodone HCl (Oxycodone Hcl Immed Release 5 Mg Tablet) 5 mg PO Q6H PRN PRN Reason: Pain, Severe (Pain Scale 7-10) Last Admin: 09/24/24 14:18 Dose: 5 mg Sodium Chloride (0.9 % Sodium Chloride Flush 3 Ml Syringe) [facility] Last Admin: 09/24/24 07:36 Dose: Not Given Allergies Allergies Allergy/AdvReac Type Severity Reaction Status Date / Time No Known Allergies Allergy Verified 09/20/24 21:36 [No Known Allergies*] Assessment & Plan Assessment & Plan (1) Opioid use disorder, severe, dependence: Status: Acute Code(s): F11.20 - Opioid dependence, uncomplicated Assessment and Plan: * Suboxone 8mg TID already ordered * will follow up PRN * reception manager to check in after the weekend Total time managing care of this patient today ____ minutes.
[2024-09-24 16:28] LABS: Glucose, Whole Blood 231 mg/dL (60-115)
[2024-09-24] MEDS: 0.9 % Sodium Chloride Flush 3 ML SYRINGE IVFLUSH ×2 (16:36→20:28)
[2024-09-24 19:26] LABS: Glucose, Whole Blood 275 mg/dL (60-115)
[2024-09-24] MEDS: Atorvastatin Calcium 40 MG TABLET PO (20:28)
[2024-09-25 03:34] VITALS: BP 122/53; PULSE 107; RESP 20; TEMP 36.8; O2SAT 96
[2024-09-25] MEDS: Omeprazole 20 MG CAPSULE.DR PO (06:14)
[2024-09-25] MEDS: oxyCODONE HCl Immed Release 5 MG TABLET PO ×2 (06:14→15:07)
[2024-09-25 07:58] LABS: Glucose, Whole Blood 147 mg/dL (60-115)
[2024-09-25] MEDS: Insulin Lispro 100 UNIT/ML 3 ML VIAL SUBCUT (07:58)
[2024-09-25] MEDS: Multivitamin TABLET 1 TAB PO (07:59)
[2024-09-25] MEDS: Amiodarone HCL 200 MG TABLET PO (07:59)
[2024-09-25] MEDS: calcitrioL 0.25 MCG CAPSULE PO (07:59)
[2024-09-25] MEDS: Apixaban 5 MG TABLET PO (07:59)
[2024-09-25 08:00] VITALS: BP 116/56; PULSE 98; RESP 14; TEMP 37; O2SAT 96
[2024-09-25] MEDS: Insulin Glargine,Hum.rec.anlog 100 UNIT/ML 10 ML VIAL 10 UNIT SUBCUT (08:10)
[2024-09-25] MEDS: 0.9 % Sodium Chloride Flush 3 ML SYRINGE IVFLUSH (08:10)
[2024-09-25] MEDS: Buprenorphine/Naloxone 8/2 mg FILM 1 FILM SUBLINGUAL (08:11)
[2024-09-25 08:21] VITALS: PULSE 100; RESP 18; O2SAT 93
[2024-09-25] MEDS: Albuterol/Iprat 2.5/0.5MG 3 ML AMPUL.NEB INHALE ×2 (08:21→14:34)
--- NOTE | 2024-09-25 08:51 | P.PNIM_ITS ---
Subjective Subjective Date of Service: 09/25/24 Interval History: no complaints Physical Exam 2 Vital Signs: Vital Signs: Last Vital Signs Temp 98.6 F 09/25/24 08:00 Pulse 100 09/25/24 08:21 Resp 18 09/25/24 08:21 BP 116/56 L 09/25/24 08:00 Pulse Ox 96 09/25/24 08:00 O2 Del Method Nasal Cannula 09/25/24 08:00 O2 Flow Rate 2 09/25/24 08:00 FiO2 40 09/22/24 16:00 Oxygen Flow Rate 2 09/24/24 00:43 BMI result Body Mass Index 40.8 Const: General: no acute distress, alert and awake Resp: Effort & Inspection: normal respiratory effort and able to speak in complete sentences Auscultation: clear to auscultation bilaterally Cardio: Rate: regular rate Rhythm: regular rhythm Heart sounds: S1 normal heart sound present and S2 normal heart sound present GI: Other: pitting edema across lower abdomen Inspection: Yes Abdominal wall edema Palpation (GI): Soft to palpation and nontender : Other: verde in place Scrotum: scrotal swelling Skin: Rashes: no rashes Neuro: Other: no myoclonus or asterixis Extrem: General: Yes edema (lower extremity pitting edema +2) Objective Data Active Medications Acetaminophen (Acetaminophen 325 Mg Tablet) 650 mg PO Q6H PRN PRN Reason: Pain, Mild (Pain Scale 1-3), fever or headache Albuterol/Ipratropium (Albuterol/Iprat 2.5/0.5mg 3 Ml Ampul.Neb) 3 ml INHALE RQ6H WHILE AWAKE [facility] Last Admin: 09/25/24 08:21 Dose: 3 ml Documented By: AZAEL Amiodarone HCl (Amiodarone Hcl 200 Mg Tablet) 200 mg PO DAILY [facility] Last Admin: 09/25/24 07:59 Dose: 200 mg Documented By: COLBY Apixaban (Apixaban 5 Mg Tablet) 5 mg PO BID [facility] Last Admin: 09/25/24 07:59 Dose: 5 mg Documented By: COLBY Atorvastatin Calcium (Atorvastatin Calcium 40 Mg Tablet) 40 mg PO BEDTIME [facility] Last Admin: 09/24/24 20:28 Dose: 40 mg Documented By: JUAN CARLOS Buprenorphine/Naloxone (Buprenorphine/Naloxone 8/2 Mg Film) 1 film SUBLINGUAL TID [facility] Last Admin: 09/25/24 08:11 Dose: 1 film Documented By: COLBY Calcitriol (Calcitriol 0.25 Mcg Capsule) 0.25 mcg PO DAILY [facility] Last Admin: 09/25/24 07:59 Dose: 0.25 mcg Documented By: COLBY Calcium Carbonate (Calcium Carbonate 750 Mg Tab.Chew) 750 mg PO Q4H PRN PRN Reason: Heartburn Last Admin: 09/23/24 04:28 Dose: 750 mg Documented By: EZ Heparin Sodium (Porcine) (Heparin Sodium,Porcine 5,000 Unit/Ml Vial) 5,000 unit INTRACATH TUTHSA@1645 [facility] Last Admin: 09/23/24 17:02 Dose: Not Given Documented By: HARI Non-Admin Reason: should of been done in HD Insulin Glargine (Insulin Glargine,Hum.Rec.Anlog 100 Unit/Ml 10 Ml Vial) 10 unit SUBCUT DAILY [facility] Last Admin: 09/25/24 08:10 Dose: 10 unit Documented By: COLBY Insulin Human Lispro (Insulin Lispro 100 Unit/Ml 3 Ml Vial) 0 unit SUBCUT QIDACHS [facility]; Protocol Last Admin: 09/25/24 07:58 Dose: 2 unit Documented By: COLBY Magnesium Hydroxide (Milk Of Magnesia 30 Ml Oral.Susp) 30 ml PO DAILY PRN PRN Reason: Constipation Melatonin (Melatonin 3 Mg Tablet) 6 mg PO BEDTIME PRN PRN Reason: Insomnia Multivitamins/Vitamin C (Multivitamin Tablet) 1 tab PO DAILY [facility] Last Admin: 09/25/24 07:59 Dose: 1 tab Documented By: COLBY Omeprazole (Omeprazole 20 Mg Capsule.) 20 mg PO DAILY@0630 [facility] Last Admin: 09/25/24 06:14 Dose: 20 mg Documented By: JUAN CARLOS Ondansetron HCl (Ondansetron Hcl 4 Mg/2 Ml Vial) 4 mg IVPUSH Q8H PRN PRN Reason: Nausea and Vomiting Oxycodone HCl (Oxycodone Hcl Immed Release 5 Mg Tablet) 5 mg PO Q6H PRN PRN Reason: Pain, Severe (Pain Scale 7-10) Last Admin: 09/25/24 06:14 Dose: 5 mg Documented By: JUAN CARLOS Sodium Chloride (0.9 % Sodium Chloride Flush 3 Ml Syringe) 3 ml IVFLUSH QSHIFT [facility] Last Admin: 09/25/24 08:10 Dose: 3 ml Documented By: COLBY Labs 09/23/24 04:15 09/23/24 04:15 Labs: Laboratory Results - last 24 hr 09/24/24 09/24/24 09/24/24 11:30 16:23 19:21 POC Glucose 244 H 231 H 275 H 09/25/24 07:37 POC Glucose 147 H Assessment and Plan (1) Cardiomyopathy: Status: Acute Plan 44M PMH end-stage renal disease on hemodialysis, hypertension, hyperlipidemia, cardiomyopathy EF of 40-45%, paroxysmal AFib, diabetes, polysubstance dependence, COPD, history of right BKA, wheelchair-bound was discharged on 09/20/2024 after prolonged hospitalization for acute kidney injury and initiation of hemodialysis, now end-stage renal disease in ambulance on the way home had panic attack and was hypoxic so brought back to the ED, after Ativan became hypercapnic requiring intubation ICU admission. Now extubated and downgraded to medical floor and appears back to baseline. Acute hypoxic and hypercapnic respiratory failure wean o2 End-stage renal disease Continue with hemodialysis Diabetes Basal bolus insulin Paroxysmal AFib Continue amiodarone and apixaban Opiate dependence Continue Suboxone Morbid obesity Weight loss is recommended DVT prophylaxis on Eliquis Full Code reason for continued hospitalization: weaning o2 Quality Stroke Does the patient have a stroke diagnosis?: No VTE Prior VTE?: No VTE Risk Level:: Medical - moderate - high VTE Device Contraindication: Treatment Not Indicated VTE Drug Contraindication: N/A - Med Ordered
--- NOTE | 2024-09-25 14:04 | P.DS_ITS ---
DS: Providers Provider Date of Service: 09/25/24 Date of admission: 09/21/24 08:07 Date of discharge: 09/25/24 Primary care physician: Cristina Stover MD Consults: 09/21/24 07:18 Consult to Nephrology Routine Consulting Provider: [facility] Reason for consultation: Hyponatremia, Hypoxemia, URgent dialysis ? 09/21/24 08:07 Consult to Psychiatry Routine Consulting Provider: Psych Covering Reason for consultation: panic attacks 09/22/24 08:25 Consult to Wound Care Routine Reason for consultation: L foot ulcer 09/23/24 12:53 Addiction Medicine Routine Consulting Provider: Addiction Covering Reason for consultation: cocaine abuse while in hospital Has provider been notified: No 09/24/24 00:28 Consult to Wound Care Routine Reason for consultation: pressure injury to coccyx, right buttock DS: Diagnosis Discharge Diagnosis (1) Cardiomyopathy: Status: Acute DS: Summary Hospital Course Hospital Course: from initial hpi: 44 years old HTN, HLD, DMII, Polysubstance abuse, PVD and new ESRD on HD, COPD, Anemia requiring transfusion, Right BKA among others who was discharged home on 09/20. upon arrival home the patient had panic attack with reported hypoxia and he was brought back to the hospital. repeated images consistent with pleural effusion. He was noted to have new sacral edema with recurrence of scrotal edema. He was altered at time of interview with blood work showing hyponatremia and elevated BNP. Patient could not contribute to HPI as he was altered after receiving Ativan in ED. Will be admitted for further work up and management. hospital course: Patient was admitted for acute hypoxic and hypercapnic respiratory failure complicated by acute toxic metabolic encephalopathy requiring intubation and transferred to intensive care unit. Was continued on hemodialysis, received thoracentesis of transudative fluid, eventually able to be extubated and weaned off oxygen mental status returned to baseline. For end-stage renal disease was continued hemodialysis. For diabetes was continued on basal bolus insulin. For paroxysmal atrial fibrillation was continued on amiodarone and apixaban. For opiate dependence was continue Suboxone. For morbid obesity weight loss recommended. Patient is feeling back to his baseline. He will continue working with physical therapy and occupational therapy at home. Time Attestation Discharge Coordination Time (in mins): 36 Quality: Safe Use of Opioids Does Pt have an Active Cancer Diagnosis on the Problem List?: No Quality: Stroke Does the patient have a stroke diagnosis?: No Physical Exam Vital Signs: Vital Signs: Last Vital Signs Temp 98.6 F 09/25/24 08:00 Pulse 100 09/25/24 08:21 Resp 18 09/25/24 08:21 BP 116/56 L 09/25/24 08:00 Pulse Ox 96 09/25/24 08:00 O2 Del Method Nasal Cannula 09/25/24 08:00 O2 Flow Rate 2 09/25/24 08:00 FiO2 40 09/22/24 16:00 Oxygen Flow Rate 2 09/24/24 00:43 BMI result Body Mass Index 40.8 Const: General: no acute distress, alert and awake Resp: Effort & Inspection: normal respiratory effort and able to speak in co mplete sentences Auscultation: clear to auscultation bilaterally Cardio: Rate: regular rate Rhythm: regular rhythm Heart sounds: S1 normal heart sound present and S2 normal heart sound present GI: Other: pitting edema across lower abdomen Inspection: Yes Abdominal wall edema Palpation (GI): Soft to palpation and nontender : Other: verde in place Scrotum: scrotal swelling Skin: Rashes: no rashes Neuro: Other: no myoclonus or asterixis Extrem: General: Yes edema (lower extremity pitting edema +2) DS: Data Data Completed and Pending Completed studies during hospitalization [Text1]: Procedures Detachment at Right 2nd Toe, Complete, Open Approach (04/18/23) Excision of Left Foot Skin, External Approach (08/29/24) Excision of Right Foot Subcutaneous Tissue and Fascia, Open Approach (04/18/23) Fluoroscopy of Superior Vena Cava using Low Osmolar Contrast, Guidance (04/18/23) Fluoroscopy of Superior Vena Cava, Guidance (08/29/24) Insertion of Infusion Device into Superior Vena Cava, Percutaneous Approach (08/29/24) Insertion of Tunneled Vascular Access Device into Chest Subcutaneous Tissue and Fascia, Percutaneous Approach (08/29/24) Performance of Urinary Filtration, Intermittent, Less than 6 Hours Per Day (08/29/24) Transfusion of Nonautologous Red Blood Cells into Peripheral Vein, Percutaneous Approach (08/29/24) Labs on day of discharge: Laboratory Results - last 24 hr 09/24/24 09/24/24 09/25/24 16:23 19:21 07:37 POC Glucose 231 H 275 H 147 H Preliminary micro results at discharge 09/21/24 00:52 Blood Culture - Preliminary Blood - Venous No growth after 48 hours. 09/21/24 00:22 Blood Culture - Preliminary Blood - Venous No growth after 48 hours. Discharge Plan Discharge Anticipated Discharge Date/Time: 09/25/24 14:01 Patient Disposition: Home Health Service Discharge Diagnosis: hypercapncea Referrals: [facility] [place] Serv [Outside] - 1 Week ([facility] [place] [place] will call you to schedule home visits) Cris Cobos NP [Physician] - 10/13/24 9:30 am (Address equipment needs at this appointment. Please call [facility] to schedule transportation. ) Discharge Medications: Continued (DME) Dakins solution 1/4 strength 500ml See Rx Instructions .Route .MEDSUPPLY Qty: 1 0RF Rx Instructions: As directed buprenorphine-naloxone [Suboxone] 8-2 mg film 1 film sublingual TID Qty: 63 0RF multivitamin Tablet 1 tab PO DAILY Qty: 30 0RF atorvastatin 40 mg tablet 40 mg PO BEDTIME Qty: 30 0RF melatonin 5 mg tablet 5 mg PO BEDTIME PRN (Reason: insomnia) Qty: 30 0RF omeprazole 20 mg capsule,delayed release(DR/EC) 20 mg PO DAILY@0630 Qty: 30 0RF oxycodone 5 mg Tablet 5 mg PO Q6-8H PRN (Reason: Pain, Severe (Pain Scale 7-10)) Qty: 30 0RF Rx Instructions: Partial Fill upon patient request. calcium acetate(phosphat bind) 667 mg Capsule 1,334 mg PO TIDWM Qty: 120 0RF Eliquis 5 mg Tablet 5 mg PO BID Qty: 180 0RF calcitriol 0.25 mcg Capsule 0.5 mcg PO DAILY Qty: 60 0RF amiodarone 200 mg tablet 200 mg PO DAILY Qty: 90 0RF metoprolol succinate 100 mg tablet extended release 24 hr 100 mg PO DAILY Qty: 90 0RF insulin lispro [Humalog KwikPen Insulin] 100 unit/mL insulin pen See Protocol subcut USEASDIRECTD Qty: 15 0RF Protocol: Insulin Correction Scale Less than or equal to 110 ---- Give (units): 0 111 to 150 Give (units): 0 151 to 200 Give (units): 2 201 to 250 Give (units): 4 251 to 300 Give (units): 6 301 to 350 Give (units): 8 Greater than 350 Give (units): 10 Call MD if Blood Glucose > : 350 insulin glargine 100 unit/mL (3 mL) insulin pen 10 unit subcut QAM Qty: 15 0RF (DME) FreeStyle Lite Strips Strip Qty: 100 0RF Rx Instructions: Test four times a day or as directed. (DME) blood-glucose meter Kit Qty: 1 0RF Rx Instructions: As Directed (DME) pen needle, diabetic 32 gauge x 1/4 needle Qty: 100 0RF Rx Instructions: Use four times a day or as directed. (DME) lancets [FreeStyle Lancets] 28 gauge misc Qty: 100 0RF Rx Instructions: Test four times a day or as directed. prednisone 10 mg tablet See Taper PO DAILY Taper: Prednisone 40 mg daily for 3 Days and 0 Hour 30 mg daily for 3 Days and 0 Hour 20 mg daily for 3 Days and 0 Hour 10 mg daily for 13 Days and 0 Hour Rx Instructions: see taper instructions Discontinued amiodarone 200 mg Tablet 400 mg PO BID Qty: 16 0RF Discharge Orders: Discharge Order (Routine); Ordered 09/25/24 Ordered By: César Geller Diet: Advance to usual diet Activity on Discharge: As tolerated Stand Alone Forms: Patient Portal Discharge page Print Language: Thai Care Plan Goals: recovery Health Concerns: esrd, weakness Plan of Treatment: avoid drugs, continue HD, PT/OT Assessment: see above Patient Instructions: Dialysis Diet (DC), End Stage Kidney Disease (DC)
[2024-09-25 14:16] LABS: Glucose, Whole Blood 112 mg/dL (60-115)
[2024-09-25 14:35] VITALS: PULSE 92; RESP 20; O2SAT 98
--- NOTE | 2024-09-25 15:07 | MHC.CM.PN ---
PT WILL DC HOME TODAY WITH [facility] HE REPORTS HIS MOTHER IS AWARE OF TRANSPORT TIME AND WILL BE AT THE HOME BLS TRANSPORT BOOKED VIA [facility]
--- NOTE | 2024-09-25 15:13 | PC.NURSE ---
Meds reviewed with patient. Stated understanding. Pt then asked his Primary RN about his meds again. Scripts fill by MD Ro previous d/c.
--- NOTE | 2024-09-25 15:45 | W.MHC.F2F ---
Service Date Service Date: 09/25/24 Encounter Date of encounter: 09/25/24 Reasons for Services Signs and symptoms assessed: weakness Reason for intermediate: medication management, medication treatment and teach disease management Reason for physical therapy: home safety and mobility, therapeutic exercises, restore joint function and gait/transfer training Reason for occupational therapy: home safety and mobility, therapeutic exercises, restore joint function, gait/transfer training and ADL training Homebound: Leaving the home is medically contraindicated at this time without the asist of a device and/or another person due th the listed conditions above and below. Reason homebound: bedbound/chairbound Certification: Based on the above findings, I certify that this patient is confined to the home and needs intermittent intermediate care, physical therapy and/or speech therapy, or continues to need occupational therapy. The patient is under my care, and I have initiated the establishment of the plan of care. The patient will be followed by a physician who will periodically review the plan of care. Time Spent With Patient Time: Total time managing care of this patient today ____ minutes.
--- NOTE | 2024-09-25 16:11 | PC.NURSE ---
Warm Hand Off with EMS from Primary RN given.
--- NOTE | 2024-09-26 12:33 | PC.NURSE ---
Attempt to call back patient but did not slate picker about medication requested.
--- NOTE | 2024-09-26 12:59 | PC.NURSE ---
ANTONIETTA Cantu filled Pt Suboxone on 09/20/24 at [facility] for a three week supply. Question if patient is narcotic seeking?
--- NOTE | 2024-09-26 13:28 | PC.NURSE ---
Pt called back again to the unit. Informed him that a three week supply was filled and delivered to the patient. Pt then stated Maybe I left it in the ambulance. He was informed that provider will not fill another prescription for him. Pt stated he will call the ambulance company.
== END 2024-09-25 16:19 | disposition home health service (06) | DRG 812 ==
LOC: HO.ED 22:22 → HO.EDOVER 09-21 08:14 → HO.ICU 09-21 14:59 → HO.S3 09-23 14:14 → HO.ICU 09-23 14:39 → HO.S3 09-23 14:59
PROVIDERS: Internal Medicine Critical Care Medicine; Nurse Practitioner Family; Physician Assistant Medical; Admitting Provider Student in an Organized Health Care Education/Training Program; Emergency Provider Internal Medicine; PCP Family Medicine; Visit Provider Internal Medicine
DX: T40.411A Poisoning by fentanyl or fentanyl analogs, accidental (unintentional), initial encounter (principal); R57.0 Cardiogenic shock; J96.01 Acute respiratory failure with hypoxia; J96.02 Acute respiratory failure with hypercapnia; G92.8 Other toxic encephalopathy; I12.0 Hypertensive chronic kidney disease with stage 5 chronic kidney disease or end stage renal disease; D63.1 Anemia in chronic kidney disease; I48.92 Unspecified atrial flutter; J90 Pleural effusion, not elsewhere classified; N18.6 End stage renal disease; E11.22 Type 2 diabetes mellitus with diabetic chronic kidney disease; E11.51 Type 2 diabetes mellitus with diabetic peripheral angiopathy without gangrene; F17.210 Nicotine dependence, cigarettes, uncomplicated; F11.20 Opioid dependence, uncomplicated; I48.0 Paroxysmal atrial fibrillation; E78.5 Hyperlipidemia, unspecified; E66.01 Morbid (severe) obesity due to excess calories; Z68.41 Body mass index [BMI] 40.0-44.9, adult; Z71.3 Dietary counseling and surveillance; Z71.6 Tobacco abuse counseling; T40.5X1A Poisoning by cocaine, accidental (unintentional), initial encounter; Z99.2 Dependence on renal dialysis; F19.20 Other psychoactive substance dependence, uncomplicated; Z89.511 Acquired absence of right leg below knee; Z99.3 Dependence on wheelchair; Z20.822 Contact with and (suspected) exposure to COVID-19; Z79.4 Long term (current) use of insulin; Z79.899 Other long term (current) drug therapy
CPT/HCPCS: 0241U; 36415; 36600; 71045; 71250; 76870; 80053; 80307; 82042; 82150; 82570; 82803; 82945; 82947; 83605; 83615; 83735; 83880; 83970; 83986; 84100; 84157; 85025; 87040; 89051; 90999; 94002; 94003; 94640; 94660; 94799; 97161; 97162; 97166; 97530; 99285; C1758; J0330; J0692; J0696; J1940; J2060; J2250; J2704; J3010; P9047; Q5106

== ENCOUNTER → 2024-09-21 08:07 | Outpatient (BNV) | payer MEDICAID, SELFPAY | PROVIDERS: Admitting Provider Student in an Organized Health Care Education/Training Program; Emergency Provider Internal Medicine; PCP Family Medicine; Visit Provider Student in an Organized Health Care Education/Training Program | DX: I42.9 Cardiomyopathy, unspecified (principal) | CPT/HCPCS: 99232; 99233; 99239; G0180 ==

== ENCOUNTER → 2024-09-21 08:07 | Outpatient (BNV) | payer MEDICAID, SELFPAY | PROVIDERS: Admitting Provider Student in an Organized Health Care Education/Training Program; Emergency Provider Internal Medicine; PCP Family Medicine; Visit Provider Nurse Practitioner Family | DX: N18.6 End stage renal disease (principal); Z99.2 Dependence on renal dialysis; J96.01 Acute respiratory failure with hypoxia; R60.1 Generalized edema | CPT/HCPCS: 90935; 99232 ==

== ENCOUNTER → 2024-09-21 08:07 | Outpatient (BNV) | payer MEDICAID, SELFPAY | PROVIDERS: Admitting Provider Student in an Organized Health Care Education/Training Program; Emergency Provider Internal Medicine; PCP Family Medicine; Visit Provider Internal Medicine Critical Care Medicine | DX: N18.6 End stage renal disease (principal); Z99.2 Dependence on renal dialysis; I42.9 Cardiomyopathy, unspecified; F19.10 Other psychoactive substance abuse, uncomplicated | CPT/HCPCS: 32555; 99233; 99291 ==

== ENCOUNTER → 2024-09-21 08:07 | Outpatient (BNV) | payer MEDICAID, SELFPAY | PROVIDERS: Admitting Provider Student in an Organized Health Care Education/Training Program; Emergency Provider Internal Medicine; PCP Family Medicine; Visit Provider Nurse Practitioner Psychiatric/Mental Health | DX: F11.20 Opioid dependence, uncomplicated (principal) | CPT/HCPCS: 99232 ==

== ENCOUNTER 2024-09-25 22:36 | Emergency (ER) | payer MEDICAID, SELFPAY ==
[2024-09-25 22:44] VITALS: BP 148/44; PULSE 110; O2SAT 99
[2024-09-25 22:46] VITALS: BP 113/54; PULSE 109; RESP 20; TEMP 36.9; O2SAT 4
[2024-09-25 22:56] VITALS: BP 113/54; PULSE 109; RESP 20; TEMP 36.9; O2SAT 100; BMI 28.2
--- NOTE | 2024-09-25 23:13 | ED_ITS ---
HPI - General Adult General Chief complaint: Dyspnea Stated complaint: abd pain, diff breathing Time Seen by Provider: 09/25/24 23:10 Source: patient Mode of arrival: EMS Limitations: no limitations History of Present Illness ED Provider: rosi DOUGHERTY narrative: 44 years old HTN, HLD, DMII, Polysubstance abuse, PVD and new ESRD on HD, COPD, Anemia requiring transfusion, Right BKA among others who was discharged home on 09/20. upon arrival home the patient had panic attack with reported hypoxia and he was brought back to the hospital in the again discharge today at 15 45 when he reached home was unable to get the prescription filled said he called the pharmacy did not give him his oxycodone and other medications hence he came back again to the hospital patient is supposed to get dialysis in the a.m. Related Data Previous Rx's ?Medication ?Instructions ?Recorded buprenorphine 8 mg-naloxone 2 mg 1 film sublingual TID #63 ea 09/20/24 sublingual film (Suboxone) oxycodone 5 mg tablet 5 mg PO Q6-8H PRN Pain, Severe 09/20/24 (Pain Scale 7-10) #30 tabs Dakins solution 1/4 strength #1 ea 09/25/24 amiodarone 200 mg tablet 200 mg PO DAILY #90 tabs 09/25/24 apixaban 5 mg tablet (Eliquis) 5 mg PO BID #180 tabs 09/25/24 atorvastatin 40 mg tablet 40 mg PO BEDTIME #30 tabs 09/25/24 blood sugar diagnostic (FreeStyle #100 ea 09/25/24 Lite Strips) blood-glucose meter #1 ea 09/25/24 calcitriol 0.25 mcg capsule 0.5 mcg (2 x 0.25 mcg) PO DAILY 09/25/24 #60 caps calcium acetate(phosphat bind) 667 1,334 mg (2 x 667 mg) PO TIDWM 09/25/24 mg capsule #120 caps insulin glargine 100 unit/mL (3 10 unit (0.1 mL) subcut QAM #15 mL 09/25/24 mL) subcutaneous pen insulin lispro 100 unit/mL See Protocol subcut USEASDIRECTD 09/25/24 subcutaneous pen (Humalog KwikPen #15 mL (U-100) Insulin) lancets 28 gauge (FreeStyle #100 ea 09/25/24 Lancets) metoprolol succinate 100 mg 100 mg PO DAILY #90 tabs 09/25/24 tablet,extended release 24 hr multivitamin 1 tab PO DAILY #30 tabs 09/25/24 omeprazole 20 mg capsule,delayed 20 mg PO DAILY@0630 #30 caps 09/25/24 release pen needle, diabetic 32 gauge x #100 ea 09/25/24 1/ Allergies Allergy/AdvReac Type Severity Reaction Status Date / Time No Known Allergies Allergy Verified 09/25/24 23:00 [No Known Allergies*] Review of Systems Review of Systems: Yes all other systems are reviewed and are negative [facility] Past Medical History Medical History Anemia Transfusion history Atrial flutter, paroxysmal COPD (chronic obstructive pulmonary disease) Constipation Callus of foot Seizure Polysubstance abuse CKD (chronic kidney disease) stage 3, GFR 30-59 ml/min Foot osteomyelitis, left Amputation of toe of right foot Diabetic ulcer of right foot Hyperglycemia due to type 2 diabetes mellitus Renal failure Sleep apnea Diabetes HTN (hypertension) Surgical History Hx of right BKA History of surgical procedure (~04/24/23) Social History Social History Household Members: Spouse and Family Household Members Other:: Pt and live with his mother Housing: Apartment Do you presently have visiting nurse or other home services: No Alcohol intake: never Comment: bilateral wrist restraints/propofol drip for airway safety Patient Tobacco Use Status: Current everyday Tobacco user Tobacco use type: Cigarette Years Smoked: 33 Smoked in Last 30 Days: Yes e-Cigarette/Vaping Use: Currently Using Use of substances other than those prescribed or required for medical reasons: Yes Substance Use Type: Crack/Cocaine, Heroin and Marijuana service: No Physical Exam ED Vital Signs: Vital Signs - 24 hr 09/25/24 22:46 09/25/24 22:56 Temperature 98.5 F 98.5 F Pulse Rate 109 H 109 H Respiratory Rate 20 20 Blood Pressure 113/54 L 113/54 L Pulse Oximetry 4 L 100 Oxygen Delivery Method Nasal Cannula Nasal Cannula BMI result Body Mass Index 28.2 Appearance: Alert. Oriented X3. No acute distress. Eyes: PERRLA, No Nystagmus ENT: Pharynx normal. Oral Mucosa moist Neck: Normal inspection. Neck supple. CVS: Normal heart rate and rhythm. Pulses normal. Respiratory: No respiratory distress. Equal air entry bilateral, no wheezing/rales/rhonchi Abdomen: Soft and nontender. Bowel sounds are present, no mass palpable, no CVA tenderness Skin: Skin warm and dry. Normal skin color. Normal skin turgor. Extremities: Edematous left lower extremity edema. No calf tenderness right BKA Neuro: Oriented X 3. No motor deficit. No sensory deficit. Medications Administered Discontinued Medications Generic Name Dose Route Start Last Admin Trade Name Freq PRN Reason Stop Dose Admin Apixaban 5 mg 09/25/24 23:18 09/25/24 23:30 Apixaban 5 Mg Tablet PO 09/25/24 23:19 5 mg ONCE ONE Administration Buprenorphine/Naloxone 1 film 09/25/24 23:18 09/25/24 23:30 Buprenorphine/Naloxone 8/2 Mg Film SUBLINGUAL 09/25/24 23:19 1 film ONCE ONE Administration Medical Decision Making Lab Data Labs: Lab Results 09/25/24 Range/Units 23:23 POC Glucose 239 H (60-115) mg/dL Discharge Plan Discharge Clinical Impression: Opioid use disorder, severe, dependence, ESRD (end stage renal disease) on dialysis Patient Disposition: Home, Self-Care Instructions: End Stage Kidney Disease (ED), Opioid Use Disorder (ED) Additional Instructions: Continue your medications and have dialysis in morning as scheduled Follow up with your PCP Prescriptions: No Action buprenorphine-naloxone [Suboxone] 8-2 mg film 1 film sublingual TID Qty: 63 0RF oxycodone 5 mg Tablet 5 mg PO Q6-8H PRN (Reason: Pain, Severe (Pain Scale 7-10)) Qty: 30 0RF Rx Instructions: Partial Fill upon patient request. multivitamin Tablet 1 tab PO DAILY Qty: 30 0RF atorvastatin 40 mg tablet 40 mg PO BEDTIME Qty: 30 0RF amiodarone 200 mg tablet 200 mg PO DAILY Qty: 90 0RF metoprolol succinate 100 mg tablet extended release 24 hr 100 mg PO DAILY Qty: 90 0RF (DME) FreeStyle Lite Strips Strip Qty: 100 0RF Rx Instructions: Test four times a day or as directed. (DME) blood-glucose meter Kit Qty: 1 0RF Rx Instructions: As Directed omeprazole 20 mg capsule,delayed release(DR/EC) 20 mg PO DAILY@0630 Qty: 30 0RF calcitriol 0.25 mcg Capsule 0.5 mcg PO DAILY Qty: 60 0RF insulin lispro [Humalog KwikPen Insulin] 100 unit/mL insulin pen See Protocol subcut USEASDIRECTD Qty: 15 0RF Protocol: Insulin Correction Scale Less than or equal to 110 ---- Give (units): 0 111 to 150 Give (units): 0 151 to 200 Give (units): 2 201 to 250 Give (units): 4 251 to 300 Give (units): 6 301 to 350 Give (units): 8 Greater than 350 Give (units): 10 Call MD if Blood Glucose > : 350 calcium acetate(phosphat bind) 667 mg Capsule 1,334 mg PO TIDWM Qty: 120 0RF insulin glargine 100 unit/mL (3 mL) insulin pen 10 unit subcut QAM Qty: 15 0RF (DME) pen needle, diabetic 32 gauge x 1/4 needle Qty: 100 0RF Rx Instructions: Use four times a day or as directed. (DME) lancets [FreeStyle Lancets] 28 gauge misc Qty: 100 0RF Rx Instructions: Test four times a day or as directed. Eliquis 5 mg Tablet 5 mg PO BID Qty: 180 0RF (DME) Dakins solution 1/4 strength 500ml See Rx Instructions .Route .MEDSUPPLY Qty: 1 0RF Rx Instructions: As directed Print Language: Mohawk
[2024-09-25 23:27] LABS: Glucose, Whole Blood 239 mg/dL (60-115)
[2024-09-25] MEDS: Buprenorphine/Naloxone 8/2 mg FILM 1 FILM SUBLINGUAL (23:30)
[2024-09-25] MEDS: Apixaban 5 MG TABLET PO (23:30)
--- NOTE | 2024-09-25 23:35 | PC.NURSE ---
Pt medicated per jan Pt removed from per Anwar to check . Rt called for tx Plan of care ongoing.
--- NOTE | 2024-09-25 23:38 | PC.NURSE ---
Anwer notified and aware of pt POC
[2024-09-25] MEDS: Albuterol Sulfate 2.5 MG, Albuterol/Iprat 2.5/0.5MG 3 ML 3 ML INHALE (23:45)
[2024-09-25 23:46] VITALS: PULSE 93; RESP 18; O2SAT 104
== END 2024-09-26 00:45 | disposition home or self-care (01) ==
PROVIDERS: Emergency Provider Internal Medicine
DX: F11.20 Opioid dependence, uncomplicated (principal); E11.22 Type 2 diabetes mellitus with diabetic chronic kidney disease; I12.0 Hypertensive chronic kidney disease with stage 5 chronic kidney disease or end stage renal disease; N18.6 End stage renal disease; Z99.2 Dependence on renal dialysis; F19.10 Other psychoactive substance abuse, uncomplicated
CPT/HCPCS: 82947; 94640; 99284

== ENCOUNTER 2024-09-28 05:53 | Inpatient (IN) | payer MEDICAID, SELFPAY ==
[2024-09-28] VITALS (9 sets, daily range): BP systolic 103–160; BP diastolic 54–86; PULSE 78–97; RESP 18–21; TEMP 36.6–37.2; O2SAT 77–97; BMI 37.4; BMI 38.2
--- NOTE | ~2024-09-28 | XR_ITS ---
EXAMINATION: XR CHEST CLINICAL INFORMATION: dyspnea COMPARISON: CXR on 09/21/24 TECHNIQUE: Frontal view of the chest was obtained. FINDINGS: The cardiomediastinal silhouette is normal. There is mild increased pulmonary vascularity. Trace small pleural effusions and basilar atelectasis. XR/XR chest 1V IMPRESSION: Mild pulmonary edema. Electronically signed by: Deana Harris MD 09/28/2024 09:44 AM [facility]
--- NOTE | 2024-09-28 06:02 | ECG_ITS ---
Test Reason : sob Blood Pressure : / mmHG Vent. Rate : 088 BPM Atrial Rate : 088 BPM P-R Int : 178 ms QRS Dur : 102 ms QT Int : 370 ms P-R-T Axes : 023 024 090 degrees QTc Int : 447 ms Artifact in tracing Normal sinus rhythm Nonspecific T wave abnormality Abnormal ECG When compared with ECG of 20-SEP-2024 10:54, due to artifact, difficult to compare Referred By: Lanie Pereyra Electronically Signed By:SHIVANI ALATORRE
[2024-09-28] MEDS: Albuterol Sulfate 2.5 MG, Albuterol Sulfate (0.083%) 2.5 MG 5 MG INHALE (06:05)
--- NOTE | 2024-09-28 06:33 | ED.SOB ---
HPI - SOB/Dyspnea General Chief Complaint: Dyspnea Stated Complaint: SOB Time Seen by Provider: 09/28/24 06:31 Source: patient and RN notes reviewed Mode of arrival: ambulatory Limitations: no limitations History of Present Illness ED Provider: Raquel Gonzalez PA-C HPI Narrative: This is a 44-year-old male, with a past medical history of hypertension, hyperlipidemia, DM2, polysubstance abuse, PVD, new ESRD on HD, COPD, anemia requiring transfusion, right BKA among others, who presents emergency department with shortness of breath for the last month, worsening over the last 2 days. Patient was admitted to the hospital from August 29 until September 20 due to paroxysmal atrial flutter, pericardial effusion, and cardiomyopathy and was found to be in acute renal failure with end-stage renal disease on dialysis. He was started on Eliquis, amiodarone at that time. He then returned on September 21 after becoming very short of breath and was brought back to the hospital. In the emergency department on September 21 he had images consistent with pleural effusion. He was admitted for acute hypoxic in hypercapnic respiratory failure complicatedby acute toxic metabolic encephalopathy requiring intubation and transferred to to the ICU. '' He is here today as over the last 2 days he has been coming more short of breath. He states that on the way to dialysis today, he had increased shortness for breath and was found to be 77% on RA. He is not on oxygen at baseline. He believes that he should be on oxygen however every time they discharged him from the hospital, they do not discharge him with supplemental O2. He denies any chest pain or shortness for breath. He denies any fevers, chills, palpitations. He does feel as though his abdomen is distended. No abdominal pain. No nausea or vomiting. He has a history of COPD. MD elicited complaint: shortness of breath Pertinent past history: COPD, congestive heart failure and diabetes Timing: constant Relieving factors: oxygen Known history of: COPD, congestive heart failure and diabetes Treatment prior to arrival: none Related Data Home Medications ?Medication ?Instructions ?Recorded ?Confirmed insulin glargine 100 unit/mL (3 10 unit subcut DAILY 09/28/24 09/28/24 mL) subcutaneous pen insulin lispro 100 unit/mL See Protocol subcut TIDAC 09/28/24 09/28/24 subcutaneous pen (Humalog KwikPen (U-100) Insulin) melatonin 5 mg tablet 5 mg PO BEDTIME PRN insomnia 09/28/24 09/28/24 Previous Rx's ?Medication ?Instructions ?Recorded buprenorphine 8 mg-naloxone 2 mg 1 film sublingual TID #63 ea 09/20/24 sublingual film (Suboxone) oxycodone 5 mg tablet 5 mg PO Q6-8H PRN Pain, Severe 09/20/24 (Pain Scale 7-10) #30 tabs Dakins solution 1/4 strength #1 ea 09/25/24 amiodarone 200 mg tablet 200 mg PO DAILY #90 tabs 09/25/24 apixaban 5 mg tablet (Eliquis) 5 mg PO BID #180 tabs 09/25/24 atorvastatin 40 mg tablet 40 mg PO BEDTIME #30 tabs 09/25/24 calcitriol 0.25 mcg capsule 0.5 mcg (2 x 0.25 mcg) PO DAILY 09/25/24 #60 caps calcium acetate(phosphat bind) 667 1,334 mg (2 x 667 mg) PO TIDWM 09/25/24 mg capsule #120 caps metoprolol succinate 100 mg 100 mg PO DAILY #90 tabs 09/25/24 tablet,extended release 24 hr multivitamin 1 tab PO DAILY #30 tabs 09/25/24 omeprazole 20 mg capsule,delayed 20 mg PO DAILY@0630 #30 caps 09/25/24 release pen needle, diabetic 32 gauge x #100 ea 09/25/2411/06 blood sugar diagnostic (FreeStyle #100 ea 09/29/24 Lite Strips) blood-glucose meter #1 ea 09/29/24 lancets 28 gauge (FreeStyle #100 ea 09/29/24 Lancets) prednisone 10 mg tablet 10 mg PO DIRECTED #20 tabs 09/29/24 Allergies Allergy/AdvReac Type Severity Reaction Status Date / Time No Known Allergies Allergy Verified 09/28/24 06:43 [No Known Allergies*] Review of Systems Review of Systems: Yes all other systems are reviewed and are negative Constitutional: Constitutional: Reports as per [facility] Past Medical History Medical History (Updated 09/29/24 @ 14:10 by Eulogio Curtis MD) Opioid use disorder, severe, dependence Paroxysmal atrial flutter Cardiomyopathy Pericardial effusion Atrial flutter Need for acute hemodialysis Leukocytosis Anemia Anemia Transfusion history Atrial flutter, paroxysmal COPD (chronic obstructive pulmonary disease) Constipation Callus of foot Seizure Polysubstance abuse CKD (chronic kidney disease) stage 3, GFR 30-59 ml/min Foot osteomyelitis, left Amputation of toe of right foot Diabetic ulcer of right foot Hyperglycemia due to type 2 diabetes mellitus Renal failure Sleep apnea Diabetes HTN (hypertension) Surgical History Hx of right BKA History of surgical procedure (~04/24/23) Social History Social History Household Members: Family Household Members Other:: mother Housing: Apartment Do you presently have visiting nurse or other home services: Yes (was intended to have visiting nurses on last discharge) Unable to assess alcohol history related to: Unable to respond Alcohol intake: former Comment: bilateral wrist restraints/propofol drip for airway safety Patient Tobacco Use Status: Current everyday Tobacco user Tobacco use type: Cigarette Cigarette Packs Per Day: 0.5 Cigarettes Per Day: 10.0 Years Smoked: 33 e-Cigarette/Vaping Use: Currently Using Second Hand Smoke Exposure: Yes Substance Use Type: Crack/Cocaine, Heroin, Marijuana and Opiates service: No Physical Exam Vital Signs: Vital Signs: Last Vital Signs Temp 98.7 F 09/29/24 15:41 Pulse 88 09/29/24 15:41 Resp 18 09/29/24 15:41 BP 106/59 L 09/29/24 15:41 Pulse Ox 95 09/29/24 15:41 O2 Del Method Nasal Cannula 09/29/24 15:41 O2 Flow Rate 2 09/29/24 15:41 BMI result Body Mass Index 37.4 Const: General: cooperative, comfortable and no acute distress Orientation/consciousness: patient oriented x3 Limitations: no limitations HEENT: Head: Yes normal to inspection, Yes normocephalic and Yes atraumatic Ears: hearing grossly normal bilaterally General nose exam: Normal external nose present Face and sinus: Yes normal facial exam Mouth: Normal oral and palatal mucosa present, oropharynx normal and moist mucous membranes Throat: Yes posterior oropharynx normal Eyes: General: appearance normal, both eyes and all related structures Eyelids: Yes eyelids normal Conjunctivae: conjunctivae normal Sclerae: sclerae normal Pupils: Equal, round and reactive pupils present EOM: EOMs intact bilaterally Neck: Neck: Yes normal visual inspection, Yes full ROM and Yes no lymphadenopathy Lymphatic: no lymphadenopathy noted Chest: Chest palpation & inspection: normal inspection of the chest Resp: Other: Lungs with coarse crackles noted throughout all lung thomson. Effort & Inspection: normal respiratory effort and able to speak in complete sentences Cardio: Rate: regular rate Rhythm: regular rhythm Heart sounds: S1 normal heart sound present and S2 normal heart sound present GI: Other: Abdomen is distended, nontender. Inspection: Yes normal to inspection Skin: General skin exam: no rashes or lesions noted Trauma: no lacerations or abrasions Wounds: no wounds Neuro: General: patient oriented x3 and moves all extremities Cranial nerves: Yes Equal, round and reactive pupils present Extrem: Other: 1+ pitting edema noted bilaterally. Right BKA noted. No overlying skin changes, or rashes. General: Yes normal to inspection Right upper extremity: normal to inspection Left upper extremity: normal to inspection Right lower extremity: normal to inspection Left lower extremity: normal to inspection Course Reevaluation(s) Reevaluation #1: Labs returned, he has slight leukocytosis at 16.1, with left shift, slightly hyponatremic at 133, creatinine elevated at 3.81 BUN of 35. Troponin elevated at 331 0.3, alk phos 165, BNP elevated at 2010. Albumin 2.7. Second EKG was ordered due to elevated troponin and shortness for breath as well as 1st EKG that was performed with poor capture. EKG with normal sinus rhythm at a ventricular rate of 85 beats per minute, HI interval 176, QT QTC 380/452, no ST elevation or depression. I reviewed this case with my attending physician who recommends emergent dialysis for fluid overload. Also recommending nitroglycerin, however awaiting repeat vitals at this time to ensure no hypotension. Chest x-ray was reviewed by me, no profound consolidation however does appear to be fluid overloaded, poor capture due to or inspiration effort, will await for final read. Blood cultures ordered. Will discuss with hospitalist for further management. Time: 07:59 Reevaluation #2: Spoke to hospitalist, Dr. Covington, who recommends reaching out to hospital laboratory technician. Patient has only received 1 outpatient dialysis treatment through [facility] days ago, September 26. His current hospital laboratory technician is Dr. Cagle, reached out to on-call hospital laboratory technician Dr. Yañez for recommendations and coordination of dialysis. Time: 08:22 Medications Administered Discontinued Medications Generic Name Dose Route Start Last Admin Trade Name Denzel PRN Reason Stop Dose Admin Albuterol Sulfate 2.5 mg/ 5 mg 09/28/24 06:05 09/28/24 06:05 Albuterol Sulfate 2.5 mg INHALE 09/28/24 06:06 5 mg ONCE ONE Administration Albuterol/Ipratropium 3 ml 09/28/24 10:19 09/28/24 20:33 Albuterol/Iprat 2.5/0.5mg 3 Ml Ampul.Neb INHALE 3 ml RQ4H WHILE AWAKE PRN Administration shortness of breath/wheeze Amiodarone HCl 200 mg 09/28/24 12:00 09/29/24 08:01 Amiodarone Hcl 200 Mg Tablet PO 200 mg DAILY LYSSA Administration Apixaban 5 mg 09/28/24 12:00 09/29/24 08:02 Apixaban 5 Mg Tablet PO 5 mg BID LYSSA Administration Atorvastatin Calcium 40 mg 09/28/24 21:00 09/28/24 22:18 Atorvastatin Calcium 40 Mg Tablet PO 40 mg BEDTIME LYSSA Administration Buprenorphine/Naloxone 1 film 09/28/24 15:00 09/29/24 15:23 Buprenorphine/Naloxone 8/2 Mg Film SUBLINGUAL 1 film TID LYSSA Administration Calcitriol 0.5 mcg 09/28/24 12:00 09/29/24 08:01 Calcitriol 0.25 Mcg Capsule PO 0.5 mcg DAILY LYSSA Administration Calcium Acetate 1,334 mg 09/28/24 12:00 09/29/24 16:54 Calcium Acetate 667 Mg Capsule PO 1,334 mg TIDWM LYSSA Administration Calcium Carbonate 750 mg 09/28/24 08:36 09/29/24 16:54 Calcium Carbonate 750 Mg Tab.Chew PO 750 mg Q4H PRN Administration Heartburn Epoetin Ruddy 10,000 unit 09/28/24 10:17 09/28/24 13:02 Epoetin Ruddy 20,000 Unit/Ml Vial SUBCUT 09/28/24 10:18 10,000 unit ONCE ONE Administration Heparin Sodium (Porcine) 5,000 unit 09/28/24 09:02 09/28/24 09:36 Heparin Sodium,Porcine 5,000 Unit/Ml Vial INTRACATH 09/28/24 09:03 5,000 unit ONCE ONE Administration Insulin Glargine 10 unit 09/28/24 12:00 09/29/24 08:01 Insulin Glargine,Hum.Rec.Anlog 100 Unit/Ml 10 Ml Vial SUBCUT 10 unit DAILY LYSSA Administration Insulin Human Lispro 0 unit 09/28/24 11:30 09/29/24 16:54 Insulin Lispro 100 Unit/Ml 3 Ml Vial SUBCUT 8 unit QIDACHS [facility] Administration Protocol Melatonin 6 mg 09/28/24 08:36 09/28/24 22:18 Melatonin 3 Mg Tablet PO 6 mg BEDTIME PRN Administration Insomnia Metoprolol Succinate 100 mg 09/28/24 12:00 09/29/24 08:02 Metoprolol Succinate Er 100 Mg Tab.Er.24h PO 100 mg DAILY [facility] Administration Protocol Multivitamins/Vitamin C 1 tab 09/29/24 09:00 09/29/24 08:01 Multivitamin Tablet PO 1 tab DAILY LYSSA Administration Nitroglycerin 0.5 inch 09/28/24 08:16 09/28/24 09:36 Nitroglycerin 2 % Oint 1 Gm Packet TRANSDERMA 09/28/24 08:17 0.5 inch ONCE ONE Administration Omeprazole 20 mg 09/29/24 06:30 09/29/24 06:32 Omeprazole 20 Mg Capsule. PO 20 mg DAILY@0630 [facility] Administration Oxycodone HCl 5 mg 09/28/24 11:47 09/29/24 16:54 Oxycodone Hcl Immed Release 5 Mg Tablet PO 5 mg Q6H PRN Administration Pain, Severe (Pain Scale 7-10) Prednisone 40 mg 09/28/24 09:00 09/29/24 08:01 Prednisone 20 Mg Tablet PO 10/06/24 08:59 40 mg DAILY [facility] Administration Taper Sodium Chloride 3 ml 09/28/24 16:00 09/29/24 15:23 0.9 % Sodium Chloride Flush 3 Ml Syringe IVFLUSH 3 ml QSHIFT [facility] Administration Medical Decision Making Medical Decision Making MDM Narrative: This is a 44-year-old male, with a history of end-stage renal disease on hemodialysis, diabetes, hypertension, hyperlipidemia, COPD, paroxysmal atrial fibrillation on apixaban and amiodarone, with recent prolonged hospital stays due to acute hypoxia and respiratory failure, complicated by metabolic encephalopathy requiring intubation of recent. Patient was found to be hypoxic at 77% via EMS, and was placed on 3L of O2 via nasal cannula. He states that he developed shortness for breath in route to hemodialysis today. He denies any chest pain or palpitations. Patient is speaking in full sentences under no acute distress via nasal cannula. Patient with coarse crackles throughout all lung thomson. No wheezing. 1+ pitting edema noted bilaterally, and abdominal distention noted without any tenderness. Patient appears to be fluid overloaded. Plan: Labs, EKG, chest x-ray, UA Differential Diagnosis Differential Diagnoses: The differential diagnosis associated with the presentation includes Acute hypoxic respiratory failure, pneumonia, URI Admission/Observation Consideration of admission/observation: Escalation of care including admission/observation considered Patient requiring higher level of care Consult Healthcare Provider Management of the patient was discussed with: Health And Wellness Coach Lab Data MDM Lab Attestation statement: I reviewed the patient's lab results. 09/29/24 06:20 09/29/24 06:20 Labs: Lab Results 09/28/24 09/28/24 09/28/24 Range/Units 06:07 06:39 07:54 WBC 16.1 H (4.8-10.8) X10*3/uL RBC 3.10 L D (4.60-5.80) X10*6/uL Hgb 8.8 L D (14.0-18.0) g/dl Hct 28.3 L D (42.0-52.0) % MCV 91.3 (80.0-98.0) fL MCH 28.4 (27.0-33.0) pg MCHC 31.1 (31.0-36.0) g/dl RDW 15.8 (11.0-16.0) % Plt Count 319 (160-400) X10*3/uL MPV 10.2 (9.4-12.4) fL Immature Gran % (Auto) 0.5 H (0.0-0.4) % Neut % (Auto) 82.0 H (45-73) % Lymph % (Auto) 7.7 L (20-40) % Riley % (Auto) 8.9 (2-11) % Eos % (Auto) 0.7 (0-4) % Baso % (Auto) 0.2 (0-2) % Lymph # (Auto) 1.2 (1.2-4.9) X10*3/uL Riley # (Auto) 1.4 H (0.1-1.2) X10*3/uL Eos # (Auto) 0.1 (0.0-0.4) X10*3/uL Baso # (Auto) 0.0 (0.0-0.2) X10*3/uL Abs Immat Gran (auto) 0.08 H (0.00-0.03) X10*3/uL Absolute Neuts (auto) 13.2 H (2.0-8.3) x10*3/uL Absolute Nucleated RBC 0.000 (0.0-0.012) X10*3/uL Nucleated RBC % (auto) 0.0 (0.0-0.2) /100WBC VBG pH 7.34 (7.32-7.43) VBG pCO2 61 mmHg VBG pO2 152 mmHg VBG HCO3 33 H (22-26) mmol/L VBG O2 Saturation TNP VBG Base Excess 6.4 mmol/L Sodium 133 L (135-145) mmol/L Potassium 3.8 (3.3-5.1) mmol/L Chloride 95 L (96-108) mmol/L Carbon Dioxide 28 (22-29) mmol/L Anion Gap 14 (12-20) BUN 35 H (9-16) mg/dL Creatinine 3.81 H (0.5-1.4) mg/dL Estim Creat Clear Calc 30.2 Estimated GFR 17 POC Glucose 237 H (60-115) mg/dL Random Glucose 233 H (60-115) mg/dL Calcium 8.0 L D (8.4-10.2) mg/dL Magnesium 2.0 (1.6-2.6) mg/dL Total Bilirubin 0.3 (0.0-1.0) mg/dL Direct Bilirubin 0.2 (0.0-0.5) mg/dL AST 31 (5-37) U/L ALT 13 (0-40) U/L Alkaline Phosphatase 165 H (39-117) U/L Troponin I High Sens 331.3 H* D (<3.5-35.0) ng/L B-Natriuretic Peptide 2010 H (<100) pg/mL Total Protein 6.7 (6.5-8.0) g/dL Albumin 2.7 L (3.5-5.0) g/dL Influenza Type A (PCR) (Negative) Influenza Type B (PCR) (Negative) RSV RNA Qual (PCR) (Negative) SARS-CoV-2 RNA (RT-PCR) (Negative) 09/28/24 Range/Units 08:24 WBC (4.8-10.8) X10*3/uL RBC (4.60-5.80) X10*6/uL Hgb (14.0-18.0) g/dl Hct (42.0-52.0) % MCV (80.0-98.0) fL MCH (27.0-33.0) pg MCHC (31.0-36.0) g/dl RDW (11.0-16.0) % Plt Count (160-400) X10*3/uL MPV (9.4-12.4) fL Immature Gran % (Auto) (0.0-0.4) % Neut % (Auto) (45-73) % Lymph % (Auto) (20-40) % Riley % (Auto) (2-11) % Eos % (Auto) (0-4) % Baso % (Auto) (0-2) % Lymph # (Auto) (1.2-4.9) X10*3/uL Riley # (Auto) (0.1-1.2) X10*3/uL Eos # (Auto) (0.0-0.4) X10*3/uL Baso # (Auto) (0.0-0.2) X10*3/uL Abs Immat Gran (auto) (0.00-0.03) X10*3/uL Absolute Neuts (auto) (2.0-8.3) x10*3/uL Absolute Nucleated RBC (0.0-0.012) X10*3/uL Nucleated RBC % (auto) (0.0-0.2) /100WBC VBG pH (7.32-7.43) VBG pCO2 mmHg VBG pO2 mmHg VBG HCO3 (22-26) mmol/L VBG O2 Saturation VBG Base Excess mmol/L Sodium (135-145) mmol/L Potassium (3.3-5.1) mmol/L Chloride (96-108) mmol/L Carbon Dioxide (22-29) mmol/L Anion Gap (12-20) BUN (9-16) mg/dL Creatinine (0.5-1.4) mg/dL Estim Creat Clear Calc Estimated GFR POC Glucose (60-115) mg/dL Random Glucose (60-115) mg/dL Calcium (8.4-10.2) mg/dL Magnesium (1.6-2.6) mg/dL Total Bilirubin (0.0-1.0) mg/dL Direct Bilirubin (0.0-0.5) mg/dL AST (5-37) U/L ALT (0-40) U/L Alkaline Phosphatase (39-117) U/L Troponin I High Sens (<3.5-35.0) ng/L B-Natriuretic Peptide (<100) pg/mL Total Protein (6.5-8.0) g/dL Albumin (3.5-5.0) g/dL Influenza Type A (PCR) NEGATIVE (Negative) Influenza Type B (PCR) NEGATIVE (Negative) RSV RNA Qual (PCR) NEGATIVE (Negative) SARS-CoV-2 RNA (RT-PCR) NEGATIVE (Negative) Radiology Impression Discussion of test interpretation with radiology: I have reviewed the radiologist's reading. Radiologist Impression: [place] [id number] XRay Report Signed Patient: Deandre Luong MR#: [id number] : 1980 Acct:[id number] Age/Sex: 44 / M ADM Date: 09/28/24 Loc: [facility] [id number]: Eulogio Curtis MD Ordering Physician: Lanie Peeryra DO Date of Service: 09/28/24 Procedure(s): XR chest 1V Accession Number(s): [id number] cc: Cristina Stover MD; Lanie Pereyra DO~ EXAMINATION: XR CHEST CLINICAL INFORMATION: dyspnea COMPARISON: CXR on 09/21/24 TECHNIQUE: Frontal view of the chest was obtained. FINDINGS: The cardiomediastinal silhouette is normal. There is mild increased pulmonary vascularity. Trace small pleural effusions and basilar atelectasis. XR/XR chest 1V IMPRESSION: Mild pulmonary edema. Electronically signed by: Deana Harris MD 09/28/2024 09:44 AM [facility] Dictated By: Deana Harris MD Signed By: <Electronically signed by Deana Harris MD in OV> 09/28/24 0944 External Record Review External record reviewed: Inpatient record, Office record, Outpatient record, Prior outpatient labs, Prior outpatient radiology, Primary care record and Outside ED record Critical Care Time Critical Care Time Critical Care Time: Yes Total Critical Care Time: 40 Attestation: I have personally provided critical care time exclusive of time spent on separately billable procedures. Time includes review of lab data, radiology results, discussion with consultants, and monitoring for potential decompensation. Intervention performed as documented. Discharge Plan Discharge Clinical Impression: ESRD (end stage renal disease) on dialysis Acute respiratory failure Qualifiers: Respiratory failure complication: unspecified whether with hypoxia or hypercapnia Qualified Code(s): J96.00 - Acute respiratory failure, unspecified whether with hypoxia or hypercapnia Patient Disposition: Admitted As Inpatient Interventions: Admission Worksheet (ED) Last Done: 09/28/24 10:19 Discharge Date/Time: 09/28/24 11:27
[2024-09-28 06:43] LABS: MANUAL DIFF FLAG NO
[2024-09-28 06:44] LABS: Basophils Percent Auto 0.2 % (0-2); Eosinophils Absolute Auto 0.1 X10*3/uL (0.0-0.4); Eosinophils Percent Auto 0.7 % (0-4); Hematocrit 28.3 % (42.0-52.0); Hemoglobin 8.8 g/dl (14.0-18.0); Imm Gran Abs Auto 0.08 X10*3/uL (0.00-0.03); Imm Gran Pct Auto 0.5 % (0.0-0.4); Lymphocytes Absolute Auto 1.2 X10*3/uL (1.2-4.9); Lymphocytes Percent Auto 7.7 % (20-40); Mean Corpuscular HGB Conc 31.1 g/dl (31.0-36.0); Mean Corpuscular Hemoglobin 28.4 pg (27.0-33.0); Mean Corpuscular Volume 91.3 fL (80.0-98.0); Mean Platelet Volume 10.2 fL (9.4-12.4); Monocytes Absolute Auto 1.4 X10*3/uL (0.1-1.2); Monocytes Percent Auto 8.9 % (2-11); Neutrophils Absolute Auto 13.2 x10*3/uL (2.0-8.3); Platelet Count 319 X10*3/uL (160-400); Red Cell Distribution Width 15.8 % (11.0-16.0); White Blood Count 16.1 X10*3/uL (4.8-10.8)
[2024-09-28 06:50] LABS: Glucose, Whole Blood 237 mg/dL (60-115)
[2024-09-28 07:03] LABS: Alanine Aminotransferase 13 U/L (0-40); Albumin Level 2.7 g/dL (3.5-5.0); Alkaline Phosphatase 165 U/L (39-117); Anion Gap 14 (12-20); Aspartate Amino Transferase 31 U/L (5-37); Bilirubin Direct 0.2 mg/dL (0.0-0.5); Bilirubin Total 0.3 mg/dL (0.0-1.0); Blood Urea Nitrogen 35 mg/dL (9-16); Carbon Dioxide 28 mmol/L (22-29); Chloride 95 mmol/L (96-108); Creatinine Clr Calc Pharmacy 30.2; Estimated Glomerular Filt Rate 17; Glucose Random 233 mg/dL (60-115); Potassium 3.8 mmol/L (3.3-5.1); Sodium 133 mmol/L (135-145); Total Protein 6.7 g/dL (6.5-8.0)
[2024-09-28 07:07] LABS: B Type Natriuretic Peptide 2010 pg/mL (<100)
--- NOTE | 2024-09-28 07:18 | ECG_ITS ---
Test Reason : elevated Troponin/SOB Blood Pressure : / mmHG Vent. Rate : 085 BPM Atrial Rate : 085 BPM P-R Int : 176 ms QRS Dur : 102 ms QT Int : 380 ms P-R-T Axes : 027 039 088 degrees QTc Int : 452 ms Artifact in tracing Normal sinus rhythm Nonspecific T wave abnormality Abnormal ECG When compared with ECG of 28-SEP-2024 06:26, No significant change was found Referred By: Raquel Gonzalez Electronically Signed By:SHIVANI ALATORRE
[2024-09-28 07:19] LABS: Troponin-I High Sensitivity 331.3 ng/L (<3.5-35.0)
[2024-09-28 07:57] LABS: Venous Blood Gas Refer to POC result
[2024-09-28 08:42] LABS: VBG Base Excess 6.4 mmol/L; VBG HCO3 33 mmol/L (22-26); VBG pCO2 61 mmHg; VBG pH 7.34 (7.32-7.43); VBG pO2 152 mmHg
[2024-09-28 09:06] LABS: Influenza A PCR NEGATIVE (Negative); Influenza B PCR NEGATIVE (Negative); Resp Syncy Virus RNA Qual PCR NEGATIVE (Negative); SARS COV2 PCR INHOUSE NEGATIVE (Negative)
--- NOTE | 2024-09-28 09:18 | PM.CNNEP ---
History of Present Illness Reason for Consult Consult date: 09/28/24 Chief Complaint Chief complaint: Fluid Overload History of Present Illness Narrative: 44 y/o male with a medical history of ESRD on HD, HTN, HLD, polysubstance dependence, PVD. 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 hospitalized 08/29-09/20 during which time new ESRD pt 2/2 diabetic nephropathy/progression of underlying disease in addition to cocaine-induced nephropathy, also had new afib and pericarditis during admission; re-admitted 09/21-09/25 for acute respiratory failure complicated by acute toxic metabolic encephalopathy (Utox positive) requiring intubation. presented 09/28 with dyspnea x2 days. O2 77% on room air. Pt reports he received last HD session on Friday, 09/26, is due today, and has not missed any HD sessions. he states his breathing is comfortable now on 2L NC, but prior to oxygen was difficult to breath states other than breathing he is feeling well denies chest pain, abdominal pain, flank pain denies tremors, twitching/abnormal movements denies itching, nausea, vomiting states he continues to urinate and denies pain/difficulty urinating urine prot/creat ratio 7.441 on 08/29. No blood in urine from 08/29 CT abd/pelvis on 08/29 - unremarkable kidneys/ureters TTE on 09/03 without obvious valvular pathology labs 09/28 consistent with his baseline- sodium 133, K 3.8, Co2 28, BUN 35, Creatinine 3.81, calcium calcium 8.0 most recent blood pressure is 103/54, SBP has been 110s-130s since arrival Review of Systems Cardiovascular: Denies chest pain, Reports leg edema, Denies lightheadedness and Reports dyspnea Respiratory: Denies cough and Reports dyspnea Gastrointestinal: Denies abdominal pain, Denies constipation, Denies GI cramping, Denies diarrhea, Denies nausea and Denies vomiting Genitourinary: Denies hematuria, Denies oliguria, Denies difficulty urinating, Denies dysuria and Denies flank pain Musculoskeletal: Denies arthralgias and Denies muscle cramps Skin/Breast: Denies rash Comments: denies tremors/abnormal movements PMFSH Past Medical History Medical History Paroxysmal atrial flutter Cardiomyopathy Pericardial effusion Atrial flutter Need for acute hemodialysis Opioid use disorder, severe, dependence Leukocytosis Anemia Anemia Transfusion history Atrial flutter, paroxysmal COPD (chronic obstructive pulmonary disease) Constipation Callus of foot Seizure Polysubstance abuse CKD (chronic kidney disease) stage 3, GFR 30-59 ml/min Foot osteomyelitis, left Amputation of toe of right foot Diabetic ulcer of right foot Hyperglycemia due to type 2 diabetes mellitus Renal failure Sleep apnea Diabetes HTN (hypertension) Surgical History Surgical History Hx of right BKA History of surgical procedure (~04/24/23) Social History Social History Household Members: Spouse and Family Household Members Other:: Pt and live with his mother Housing: Apartment Do you presently have visiting nurse or other home services: No Unable to assess alcohol history related to: Unable to respond Alcohol intake: former Comment: bilateral wrist restraints/propofol drip for airway safety Patient Tobacco Use Status: Current everyday Tobacco user Tobacco use type: Cigarette Years Smoked: 33 e-Cigarette/Vaping Use: Currently Using Substance Use Type: Crack/Cocaine, Heroin and Marijuana service: No Meds Allergies Allergy/AdvReac Type Severity Reaction Status Date / Time No Known Allergies Allergy Verified 09/28/24 06:43 [No Known Allergies*] Active Medications: Current Medications Acetaminophen (Acetaminophen 325 Mg Tablet) 650 mg PO Q6H PRN PRN Reason: Pain, Mild (Pain Scale 1-3), fever or headache Calcium Carbonate (Calcium Carbonate 750 Mg Tab.Chew) 750 mg PO Q4H PRN PRN Reason: Heartburn Glucose (Glucose Gel 15 Gm Gel..Gram.) 15 gm PO Q15M PRN; Protocol PRN Reason: per Hypoglycemia Standing Ord. Dextrose (D10) 250 mls @ 750 mls/hr IV Q15M PRN; Protocol PRN Reason: per Hypoglycemia Standing Ord. Insulin Human Lispro (Insulin Lispro 100 Unit/Ml 3 Ml Vial) 0 unit SUBCUT QIDACHS [facility]; Protocol Magnesium Hydroxide (Milk Of Magnesia 30 Ml Oral.Susp) 30 ml PO DAILY PRN PRN Reason: Constipation Melatonin (Melatonin 3 Mg Tablet) 6 mg PO BEDTIME PRN PRN Reason: Insomnia Ondansetron HCl (Ondansetron Hcl 4 Mg/2 Ml Vial) 4 mg IVPUSH Q8H PRN PRN Reason: Nausea and Vomiting Sodium Chloride (0.9 % Sodium Chloride Flush 3 Ml Syringe) [facility] Medications ?Medication ?Instructions ?Recorded ?Confirmed ?Last Taken ?Type insulin glargine 100 unit/mL (3 10 unit subcut DAILY 09/28/24 09/28/24 09/27/24 History mL) subcutaneous pen insulin lispro 100 unit/mL See Protocol subcut TIDAC 09/28/24 09/28/24 09/27/24 History subcutaneous pen (Humalog KwikPen (U-100) Insulin) melatonin 5 mg tablet 5 mg PO BEDTIME PRN insomnia 09/28/24 09/28/24 Unknown History Physical Exam Vital Signs: Last Vital Signs Temp 97.8 F 09/28/24 08:31 Pulse 85 09/28/24 08:31 Resp 21 H 09/28/24 08:31 BP 103/54 L 09/28/24 08:31 Pulse Ox 95 09/28/24 08:42 O2 Del Method Nasal Cannula 09/28/24 08:42 O2 Flow Rate 2 09/28/24 08:42 BMI result Body Mass Index 37.4 Const General: comfortable, no acute distress, alert and awake Neck Neck: Yes no JVD Resp Effort & Inspection: normal respiratory effort Auscultation: crackles (crackles bilateral posterior mid/lower lobes) Cardio Jugular venous distension: no JVD Rate: regular rate Rhythm: regular rhythm Heart sounds: S1 normal heart sound present and S2 normal heart sound present GI Other: pitting edema across lower abdomen Palpation (GI): Soft to palpation and nontender General: Yes no CVA tenderness Back/Spine/Pelvis Back: no CVA tenderness Skin Lesions: no lesions Rashes: no rashes Neuro Other: no asterixis or myoclonus Extrem General: Yes edema (bilateral thighs pitting edema) Results Lab Results 09/28/24 06:39 09/28/24 06:39 Lab results: Chemistry 09/28/24 06:39 Sodium 133 L Potassium 3.8 Carbon Dioxide 28 BUN 35 H Creatinine 3.81 H Calcium 8.0 L D Hematology 09/28/24 06:39 WBC 16.1 H Hgb 8.8 L D Plt Count 319 Assessment and Plan (1) ESRD (end stage renal disease) on dialysis: Status: Acute (2) Acute respiratory failure: Qualifiers: Respiratory failure complication: unspecified whether with hypoxia or hypercapnia Qualified Code(s): J96.00 - Acute respiratory failure, unspecified whether with hypoxia or hypercapnia Status: Acute Plan ESRD on HD, here with acute respiratory failure did not miss HD sessions patient has permacath (right IJ) in place without erythema, dressing intact H&H 8.8 and 28, procrit administered 10,000 units 09/21, will administer again today potassium within normal limits Calcium 8.0 09/28, 09/23 PTH 123, calcitriol 0.25mg daily Phosphorous 4.7 09/22 no metabolic acidosis at this time no uremic symptoms patient remains fluid-overloaded, will continue to remove 3-4L as tolerated with HD Will get HD today Continue close monitoring of electrolytes, blood pressure, I&O avoid nephrotoxic substance will continue to follow Discussed with Dr Yañez Procedures Date of Service Date of Service: 09/28/24
[2024-09-28 09:25] LABS: Lactic Acid 1.3 mmol/L (0.5-2.0)
[2024-09-28] MEDS: Nitroglycerin 2 % Oint 1 GM Packet 0.5 INCH TRANSDERMA (09:36)
[2024-09-28] MEDS: Heparin Sodium,Porcine 5,000 UNIT/ML VIAL 5000 UNIT INTRACATH (09:36)
--- NOTE | 2024-09-28 09:51 | P.HPHOSP_ITS ---
History of Present Illness Date of Service: 09/28/24 Chief Complaint: dyspnea + hypoxia 44yo M with ESRD on HD, COPD, pAF on apixaban, PVD, HTN, DM2, HLD, polysubstance abuse, hx R BKA who was just admitted here 09/21-09/25/24 for respiratory failure requiring intubation and thoracentesis and discharged home. 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 Last HD 09/26. He was on his way to HD today when he became short of breath. EMS found his SaO2 to be 77%. In the ED he was found to be hypoxic to 88% on RA; currently 95% on 2L O2. CXR with pulmonary edema. No chest pain. No fever. No substance abuse since discharge reported. Review of Systems 2 Review of Systems: Yes all other systems are reviewed and are negative [facility] Medical History Paroxysmal atrial flutter Cardiomyopathy Pericardial effusion Atrial flutter Need for acute hemodialysis Opioid use disorder, severe, dependence Leukocytosis Anemia Anemia Transfusion history Atrial flutter, paroxysmal COPD (chronic obstructive pulmonary disease) Constipation Callus of foot Seizure Polysubstance abuse CKD (chronic kidney disease) stage 3, GFR 30-59 ml/min Foot osteomyelitis, left Amputation of toe of right foot Diabetic ulcer of right foot Hyperglycemia due to type 2 diabetes mellitus Renal failure Sleep apnea Diabetes HTN (hypertension) Surgical History Hx of right BKA History of surgical procedure (~04/24/23) Social History Household Members: Spouse and Family Household Members Other:: Pt and live with his mother Housing: Apartment Do you presently have visiting nurse or other home services: No Unable to assess alcohol history related to: Unable to respond Alcohol intake: former Comment: bilateral wrist restraints/propofol drip for airway safety Patient Tobacco Use Status: Current everyday Tobacco user Tobacco use type: Cigarette Years Smoked: 33 Smoked in Last 30 Days: Yes e-Cigarette/Vaping Use: Currently Using Use of substances other than those prescribed or required for medical reasons: No Substance Use Type: Crack/Cocaine, Heroin and Marijuana Advance Directives: No Advance Directives Information Provided: Yes Do you have a plan to hurt others: No Plan Nutrition Risks: No Nutritional Risk service: No Meds Allergies Allergy/AdvReac Type Severity Reaction Status Date / Time No Known Allergies Allergy Verified 09/28/24 06:43 [No Known Allergies*] Active Medications: Current Medications Acetaminophen (Acetaminophen 325 Mg Tablet) 650 mg PO Q6H PRN PRN Reason: Pain, Mild (Pain Scale 1-3), fever or headache Calcium Carbonate (Calcium Carbonate 750 Mg Tab.Chew) 750 mg PO Q4H PRN PRN Reason: Heartburn Glucose (Glucose Gel 15 Gm Gel..Gram.) 15 gm PO Q15M PRN; Protocol PRN Reason: per Hypoglycemia Standing Ord. Dextrose (D10) 250 mls @ 750 mls/hr IV Q15M PRN; Protocol PRN Reason: per Hypoglycemia Standing Ord. Insulin Human Lispro (Insulin Lispro 100 Unit/Ml 3 Ml Vial) 0 unit SUBCUT QIDACHS ON LICENSE OF [facility]; Protocol Magnesium Hydroxide (Milk Of Magnesia 30 Ml Oral.Susp) 30 ml PO DAILY PRN PRN Reason: Constipation Melatonin (Melatonin 3 Mg Tablet) 6 mg PO BEDTIME PRN PRN Reason: Insomnia Ondansetron HCl (Ondansetron Hcl 4 Mg/2 Ml Vial) 4 mg IVPUSH Q8H PRN PRN Reason: Nausea and Vomiting Sodium Chloride (0.9 % Sodium Chloride Flush 3 Ml Syringe) 3 ml IVFLUSH QSHIFT ON LICENSE OF [facility] Physical Exam 2 Vital Signs and Narrative: Vital Signs: Last Vital Signs Temp 97.8 F 09/28/24 08:31 Pulse 85 09/28/24 08:31 Resp 21 H 09/28/24 08:31 BP 103/54 L 09/28/24 08:31 Pulse Ox 95 09/28/24 08:42 O2 Del Method Nasal Cannula 09/28/24 08:42 O2 Flow Rate 2 09/28/24 08:42 BMI result Body Mass Index 37.4 Gen: in mild resp distress HEENT: sclera anicteric, moist mucus membranes Neck: supple, RIJ tunnel HD catheter without signs of infection Lungs: diminished air entry throughout Heart: regular rate and rhythm, no murmurs Abd: soft, non-tender, non-distended Ext: s/p R BKA, LLE with 1+ edema Skin: warm/well-perfused, multiple hyperpigmented skin lesions Neuro: alert and oriented x3, no focal findings Psych: appropriate affect Results Labs 09/28/24 06:39 09/28/24 06:39 Labs: Laboratory Results - last 24 hr 09/28/24 09/28/24 09/28/24 06:07 06:39 07:54 MCV 91.3 MCH 28.4 MCHC 31.1 RDW 15.8 Plt Count 319 MPV 10.2 Immature Gran % (Auto) 0.5 H Neut % (Auto) 82.0 H Lymph % (Auto) 7.7 L Cameron % (Auto) 8.9 Eos % (Auto) 0.7 Baso % (Auto) 0.2 Lymph # (Auto) 1.2 Cameron # (Auto) 1.4 H Eos # (Auto) 0.1 Baso # (Auto) 0.0 Abs Immat Gran (auto) 0.08 H Absolute Neuts (auto) 13.2 H Absolute Nucleated RBC 0.000 Nucleated RBC % (auto) 0.0 VBG pH 7.34 VBG pCO2 61 VBG pO2 152 VBG HCO3 33 H VBG O2 Saturation TNP VBG Base Excess 6.4 Anion Gap 14 Estim Creat Clear Calc 30.2 Estimated GFR 17 POC Glucose 237 H Random Glucose 233 H Lactic Acid Calcium 8.0 L D Magnesium 2.0 Total Bilirubin 0.3 Direct Bilirubin 0.2 AST 31 ALT 13 Alkaline Phosphatase 165 H Troponin I High Sens 331.3 H* D B-Natriuretic Peptide 2010 H Total Protein 6.7 Albumin 2.7 L Influenza Type A (PCR) Influenza Type B (PCR) RSV RNA Qual (PCR) SARS-CoV-2 RNA (RT-PCR) 09/28/24 09/28/24 09/28/24 08:24 08:57 08:58 MCV MCH MCHC RDW Plt Count MPV Immature Gran % (Auto) Neut % (Auto) Lymph % (Auto) Cameron % (Auto) Eos % (Auto) Baso % (Auto) Lymph # (Auto) Cameron # (Auto) Eos # (Auto) Baso # (Auto) Abs Immat Gran (auto) Absolute Neuts (auto) Absolute Nucleated RBC Nucleated RBC % (auto) VBG pH VBG pCO2 VBG pO2 VBG HCO3 VBG O2 Saturation VBG Base Excess Anion Gap Estim Creat Clear Calc Estimated GFR POC Glucose Random Glucose Lactic Acid 1.3 Calcium Magnesium Total Bilirubin Direct Bilirubin AST ALT Alkaline Phosphatase Troponin I High Sens 299.0 H* B-Natriuretic Peptide Total Protein Albumin Influenza Type A (PCR) NEGATIVE Influenza Type B (PCR) NEGATIVE RSV RNA Qual (PCR) NEGATIVE SARS-CoV-2 RNA (RT-PCR) NEGATIVE Imaging Radiologist's Impressions: Impressions Chest X-Ray 09/28/24 06:02 IMPRESSION: Mild pulmonary edema. Electronically signed by: Deana Harris MD 09/28/2024 09:44 AM [facility] Assessment and Plan (1) Volume overload: Status: Acute Plan 44yo M with ESRD on HD, COPD, pAF on apixaban, PVD, HTN, DM2, HLD, polysubstance abuse, hx R BKA who was just admitted here 09/21-09/25/24 for respiratory failure requiring intubation and thoracentesis and discharged home. He was on his way to routine HD today but developed dyspnea and hypoxia from volume overload. AHRF due to volume overload due to ESRD - admit to telemetry, urgent HD/Nephro consult - continue phos binder Ca acetate COPD - discharged on prednisone taper 09/25/24; to continue; prn nebs pAF - amiodarone, apixaban, metoprolol succinate HLD - statin DM2 - basal-bolus insulin polysubstance abuse - Utox, Suboxone, Addiction Med consult VTE prophylaxis - apixaban dispo - anticipate home with VNA code status - full I anticipate that the patient will stay at least 2 midnights as an inpatient in the hospital due to the above reasons. It is neither reasonable nor safe to care for them in a less acute setting. Quality Stroke Does the patient have a stroke diagnosis?: No VTE Prior VTE?: No VTE Risk Level:: Medical - moderate - high VTE Device Contraindication: N/A - Device Ordered VTE Drug Contraindication: N/A - Med Ordered
--- NOTE | 2024-09-28 10:48 | PHA.MEDREC ---
Pharmacy Consult ? Medication Reconciliation Pharmacy has completed the medication reconciliation. Spoke with patient and he confirmed his medications and confirmed the discharge packet from 09/25 was up to date. The patient confirmed his Insulin Glargine but was not sure how many units he is taking of that now and states maybe 10-20, I don't know they did have me change the units when I was last here and I did not get a change to take it like that yet its on my bottle at home. He confirmed he is taking the Oxycodone 5mg tabs and states he is taking it every 6-8 hours depending on his pain levels. He confirmed the Buprenorphine 8mg-naloxone 2mg sub films and confirmed he takes them 1 TID. He confirmed he is taking Omeprazole 20mg tabs once daily but states it hasn't been doing much for him and states hes sometimes alternates with an OTC antacid but was not sure of the name of it.
--- NOTE | 2024-09-28 10:58 | PHA.MEDREC ---
Addendum entered by Yissel Higuera RPh 09/28/24 11:28: [facility] rec reviewed by [facility] Original Note: Pharmacy Consult ? Medication Reconciliation Pharmacy has completed the medication reconciliation. Spoke with patient and he confirmed his medications and confirmed the discharge packet from 09/25 was up to date. The patient confirmed his Insulin Glargine but was not sure how many units he is taking of that now and states maybe 10-20, I don't know they did have me change the units when I was last here and I did not get a change to take it like that yet its on my bottle at home. He confirmed his Humalog Kiwikpen and confirmed he does it on a sliding scale three times a day before meals. He confirmed he is taking the Oxycodone 5mg tabs and states he is taking it every 6-8 hours depending on his pain levels. He confirmed the Buprenorphine 8mg-naloxone 2mg sub films and confirmed he takes them 1 TID. He confirmed he is taking Omeprazole 20mg tabs once daily but states it hasn't been doing much for him and states hes sometimes alternates with an OTC antacid but was not sure of the name of it. He confirmed he took all his medications yesterday and was not able to start anything this morning.
[2024-09-28] MEDS: Metoprolol Succinate ER 100 MG TAB.ER.24H PO (12:09)
[2024-09-28] MEDS: Insulin Glargine,Hum.rec.anlog 100 UNIT/ML 10 ML VIAL 10 UNIT SUBCUT (12:09)
[2024-09-28] MEDS: calcitrioL 0.25 MCG CAPSULE 0.5 MCG PO (12:09)
[2024-09-28] MEDS: Calcium Acetate 667 MG CAPSULE 1334 MG PO ×2 (12:09→17:29)
[2024-09-28] MEDS: Apixaban 5 MG TABLET PO ×2 (12:09→22:18)
[2024-09-28] MEDS: Amiodarone HCL 200 MG TABLET PO (12:09)
[2024-09-28] MEDS: oxyCODONE HCl Immed Release 5 MG TABLET PO (12:14)
[2024-09-28] MEDS: Buprenorphine/Naloxone 8/2 mg FILM 1 FILM SUBLINGUAL ×2 (15:01→22:18)
[2024-09-28] MEDS: 0.9 % Sodium Chloride Flush 3 ML SYRINGE IVFLUSH ×2 (15:02→22:19)
[2024-09-28 17:16] LABS: Glucose, Whole Blood 104 mg/dL (60-115)
[2024-09-28] MEDS: Albuterol/Iprat 2.5/0.5MG 3 ML AMPUL.NEB INHALE (20:33)
[2024-09-28 20:58] LABS: Glucose, Whole Blood 188 mg/dL (60-115)
[2024-09-28] MEDS: Melatonin 3 MG TABLET 6 MG PO (22:18)
[2024-09-28] MEDS: Atorvastatin Calcium 40 MG TABLET PO (22:18)
[2024-09-28] MEDS: Insulin Lispro 100 UNIT/ML 3 ML VIAL SUBCUT (22:18)
[2024-09-29] VITALS (7 sets, daily range): BP systolic 106–118; BP diastolic 57–74; PULSE 70–96; RESP 18–20; TEMP 36.6–37.1; O2SAT 82–98; BMI 38.2
[2024-09-29] MEDS: Omeprazole 20 MG CAPSULE.DR PO (06:32)
[2024-09-29 06:59] LABS: Hematocrit 30.9 % (42.0-52.0); Mean Corpuscular HGB Conc 29.1 g/dl (31.0-36.0); Mean Corpuscular Hemoglobin 27.7 pg (27.0-33.0); Mean Corpuscular Volume 95.1 fL (80.0-98.0); Mean Platelet Volume 10.5 fL (9.4-12.4); Platelet Count 296 X10*3/uL (160-400); Red Blood Count 3.25 X10*6/uL (4.60-5.80); Red Cell Distribution Width 15.9 % (11.0-16.0); White Blood Count 12.1 X10*3/uL (4.8-10.8)
[2024-09-29 07:12] LABS: Anion Gap 13 (12-20); Blood Urea Nitrogen 24 mg/dL (9-16); Calcium 8.2 mg/dL (8.4-10.2); Carbon Dioxide 29 mmol/L (22-29); Chloride 99 mmol/L (96-108); Creatinine Clr Calc Pharmacy 40.2; Estimated Glomerular Filt Rate 24; Glucose Random 93 mg/dL (60-115); Sodium 137 mmol/L (135-145)
--- NOTE | 2024-09-29 07:52 | HO.WOUND ---
Wound Consult: Initial 44yr old [place] [facility] [place] - See progress notes and H&P for detailed history.? Wound consult placed for Buttock and Scrotal wound POA.? Patient agreeable to assessment and photo documentation.? Scrotum Etiology: ??MASD (Moisture Associated Skin Damage) Wound Bed: Scattered partial thickness tissue loss, red pink erythema and dry desquamation noted Drainage / Odor: difficult to assess Edges: ? irregular Corazon wound: ?MASD - No Induration, Fluctuance or Warmth noted Goals of Treatment: ? Triad to protect from moisture and friction and allow for moist wound healing Coccyx Etiology: ?Unstagable Pressure injury -?Present on Admission Wound Bed: appears full thickness tissue loss with adherent yellow white slough granulation buds noted Drainage / Odor: serosang Edges: ? irregular Corazon wound: MASD and friction Pain: pain reported Goals of Treatment: ?Triad to protect from moisture and friction and allow for autolytic debridement Patient should consider outpt wound clinic follow up Recommendations: 1. Turn and Reposition every 2 hours and as needed for patient comfort.? Use pillows or wedges to support off loading positions. 2. Off Load all bony prominences with use of pillows and heel boots if needed.? Apply Preventative foams where needed. ? 3. Monitor for incontinence and moisture control, use barrier creams when needed for prevention and treatment. 4. Provide adequate and supplemental nutrition.? 5. Order low air loss mattress. 6. When applicable maintain blood glucose levels per Providers order. 7. Scrotum, Buttock and Coccyx - Off Load Pressure with Q2hr turns and use of pillows. Cleanse with PH balance spray or wipes, pat dry. ?Apply thin layer of Triad to wound bed - only pat and dab no scrub and rub when soiling occurs. Reapply thin layer PRN after each episode of incontinence. Recommend follow up out patient Wound Clinic at [address] [place] [id number] and to call for an appointment at time of discharge. [phone].? Re-consult wound care Nurse for wound deterioration or wound changes.
[2024-09-29 07:53] LABS: Glucose, Whole Blood 74 mg/dL (60-115)
[2024-09-29] MEDS: Amiodarone HCL 200 MG TABLET PO (08:01)
[2024-09-29] MEDS: Calcium Acetate 667 MG CAPSULE 1334 MG PO ×3 (08:01→16:54)
[2024-09-29] MEDS: predniSONE 20 MG TABLET 40 MG PO (08:01)
[2024-09-29] MEDS: Multivitamin TABLET 1 TAB PO (08:01)
[2024-09-29] MEDS: calcitrioL 0.25 MCG CAPSULE 0.5 MCG PO (08:01)
[2024-09-29] MEDS: Insulin Glargine,Hum.rec.anlog 100 UNIT/ML 10 ML VIAL 10 UNIT SUBCUT (08:01)
[2024-09-29] MEDS: Apixaban 5 MG TABLET PO (08:02)
[2024-09-29] MEDS: 0.9 % Sodium Chloride Flush 3 ML SYRINGE IVFLUSH ×2 (08:02→15:23)
[2024-09-29] MEDS: Metoprolol Succinate ER 100 MG TAB.ER.24H PO (08:02)
[2024-09-29] MEDS: Buprenorphine/Naloxone 8/2 mg FILM 1 FILM SUBLINGUAL ×2 (09:14→15:23)
[2024-09-29] MEDS: oxyCODONE HCl Immed Release 5 MG TABLET PO ×2 (09:14→16:54)
--- NOTE | 2024-09-29 09:15 | W.PM.DNNEP ---
Subjective Subjective Date of Service: 09/29/24 This patient was seen during dialysis. Interval history: 44 y/o male with a medical history of ESRD on HD, HTN, HLD, polysubstance dependence, PVD. 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 Multiple recent hospitalizations since August. Now ESRD pt 2/2 diabetic nephropathy/progression of underlying disease in addition to cocaine-induced nephropathy presented 09/28 with dyspnea x2 days. O2 77% on room air. he received last HD session on Friday, 09/26, prior to admission, received HD 09/28. Seen in dialysis this a.m. he states his breathing is comfortable now- he is on 2L NC at night. states other than breathing he is feeling well denies chest pain, abdominal pain, flank pain denies tremors, twitching/abnormal movements denies itching, nausea, vomiting states he continues to urinate and denies pain/difficulty urinating Physical Exam Vital Signs: Vital Signs: Last Vital Signs Temp 98.0 F 09/29/24 08:00 Pulse 77 09/29/24 08:00 Resp 20 09/29/24 08:00 BP 117/60 09/29/24 08:00 Pulse Ox 98 09/29/24 08:00 O2 Del Method Nasal Cannula 09/29/24 08:00 O2 Flow Rate 1 09/29/24 08:00 BMI result Body Mass Index 38.2 Const: General: comfortable, no acute distress, alert and awake Neck: Neck: Yes no JVD Resp: Effort & Inspection: normal respiratory effort Auscultation: clear to auscultation bilaterally Cardio: Jugular venous distension: no JVD Rate: regular rate Rhythm: regular rhythm Heart sounds: S1 normal heart sound present and S2 normal heart sound present GI: Other: pitting edema across lower abdomen Palpation (GI): Soft to palpation and nontender : General: Yes no CVA tenderness Back/Spine/Pelvis: Back: no CVA tenderness Skin: Lesions: no lesions Rashes: no rashes Neuro: Other: no asterixis or myoclonus Extrem: General: Yes edema (bilateral thighs pitting edema) Assessment & Plan Assessment and plan (1) ESRD (end stage renal disease) on dialysis: Status: Acute (2) Acute hypoxemic respiratory failure: Status: Resolved (3) Anasarca: Status: Resolved Plan Pt with ESRD 2/2 natural progression of CKD 2/2 diabetic nephropathy and cocaine-induced nephropathy. patient has permacath (right IJ) in place without erythema, dressing intact H&H 9.0 & 30.9, procrit administered 10,000 units 09/28 potassium within normal limits Calcium 8.2, 09/23 PTH 123, calcitriol 0.25mg daily Phosphorous 4.7 09/22 no metabolic acidosis present at this time patient remains fluid-overloaded, will continue to remove 2-3L as tolerated with HD today He will then continue with outpatient HD upon discharge ([facility]) pt ok for discharge from renal standpoint, will continue to follow as inpatinet Discussed with Dr Yañez. Time Spent With Patient Time: Total time managing care of this patient today ____ minutes. Procedures Date of Service Date of Service: 09/29/24
--- NOTE | 2024-09-29 09:37 | MHC.CM.PN ---
Pt lives with his mother, he goes to dialysis MWF at [facility]. He had VNA from [facility]. PCP confirmed: Cristina Stover. HCP is his mother. DCP: home via BLS with VNA. Cm will follow for DC needs.
--- NOTE | 2024-09-29 10:51 | MHC.CLN ---
RE; CONSULT PT WITH INCREASED NUTRITION RISK R/T PRESSURE INJURY DIET RX: 2200DM LOW PHOS LOW K+-APPROPRIATE WILL ADD 2GM NA R/T ESRD RECOMMEND ADDING SUPPLEMENT TO PROMOTE WOUND HEALING WILL ADD ENSURE MAX BID TO PROVIDE 300KCALS, 60G PROTEIN MONITOR PO INTAKE AND ENCOURAGE SUPPLEMENT SEE ALSO FULL CLINICAL NUTRITION ASSESSMENT
--- NOTE | 2024-09-29 13:02 | P.PNADD_ITS ---
Subjective Subjective Date of Service: 09/29/24 Reason For Visit: Fluid Overload Interim History: Patient seen in follow up for OUD--seen by this fiction writer during previous admissions, one of which is when suboxone was inititated Awake, alert, pleasant and engaged in interview Seen in dialysis suite Current suboxone dose is 8mg TID Reports dose continues to be appropriate and managing cravings Denies any chills or body aches Discussed current health needs and goals for when he goes home He states he wishes to continue abstaining from substance use, including nicotine --which is new for him Discussed side effect management for suboxone--in particular constipation and importance of reporting if this becomes an issue Review of Systems Constitutional: Reports as per HPI Mental Status Exam Mental Status Exam Patient Appearance: Appropriate Patient Orientation: Person, Place, Time and Situation Level of Consciousness: Awake, Appropriate and Alert Patient Behavior: Appropriate and Talkative Mood Description: Calm Affect Description: Calm Speech Pattern: Clear Diagnostics Vital Signs (24Hr): Vital Signs - 24 hr 09/28/24 17:27 09/28/24 18:42 09/28/24 19:42 Temperature 98.5 F 98.0 F Pulse Rate 97 78 Respiratory Rate 20 18 Blood Pressure 108/58 L 111/57 L Pulse Oximetry 97 94 92 Oxygen Delivery Method Nasal Cannula Room Air Room Air Oxygen Flow Rate 2 09/28/24 23:19 09/29/24 00:00 09/29/24 04:00 Temperature 98.4 F 97.8 F Pulse Rate 81 70 Respiratory Rate 18 18 18 Blood Pressure 117/60 118/74 Pulse Oximetry 96 97 Oxygen Delivery Method Nasal Cannula Nasal Cannula Oxygen Flow Rate 2 09/29/24 07:41 09/29/24 07:41 09/29/24 08:00 Temperature 98.0 F Pulse Rate 77 Respiratory Rate 20 Blood Pressure 117/60 Pulse Oximetry 83 L 92 98 Oxygen Delivery Method Room Air Nasal Cannula Nasal Cannula Oxygen Flow Rate 1 1 BMI result Body Mass Index 38.2 Labs 09/29/24 06:20 09/29/24 06:20 Labs: Laboratory Results - last 48 hr 09/28/24 09/28/24 09/28/24 06:07 06:39 07:54 WBC 16.1 H RBC 3.10 L D Hgb 8.8 L D Hct 28.3 L D MCV 91.3 MCH 28.4 MCHC 31.1 RDW 15.8 Plt Count 319 MPV 10.2 Immature Gran % (Auto) 0.5 H Neut % (Auto) 82.0 H Lymph % (Auto) 7.7 L [place] % (Auto) 8.9 Eos % (Auto) 0.7 Baso % (Auto) 0.2 Lymph # (Auto) 1.2 [place] # (Auto) 1.4 H Eos # (Auto) 0.1 Baso # (Auto) 0.0 Abs Immat Gran (auto) 0.08 H Absolute Neuts (auto) 13.2 H Absolute Nucleated RBC 0.000 Nucleated RBC % (auto) 0.0 VBG pH 7.34 VBG pCO2 61 VBG pO2 152 VBG HCO3 33 H VBG O2 Saturation TNP VBG Base Excess 6.4 Sodium 133 L Potassium 3.8 Chloride 95 L Carbon Dioxide 28 Anion Gap 14 BUN 35 H Creatinine 3.81 H Estim Creat Clear Calc 30.2 Estimated GFR 17 POC Glucose 237 H Random Glucose 233 H Lactic Acid Calcium 8.0 L D Magnesium 2.0 Total Bilirubin 0.3 Direct Bilirubin 0.2 AST 31 ALT 13 Alkaline Phosphatase 165 H Troponin I High Sens 331.3 H* D B-Natriuretic Peptide 2010 H Total Protein 6.7 Albumin 2.7 L Influenza Type A (PCR) Influenza Type B (PCR) RSV RNA Qual (PCR) SARS-CoV-2 RNA (RT-PCR) 09/28/24 09/28/24 09/28/24 08:24 08:57 08:58 WBC RBC Hgb Hct MCV MCH MCHC RDW Plt Count MPV Immature Gran % (Auto) Neut % (Auto) Lymph % (Auto) [place] % (Auto) Eos % (Auto) Baso % (Auto) Lymph # (Auto) [place] # (Auto) Eos # (Auto) Baso # (Auto) Abs Immat Gran (auto) Absolute Neuts (auto) Absolute Nucleated RBC Nucleated RBC % (auto) VBG pH VBG pCO2 VBG pO2 VBG HCO3 VBG O2 Saturation VBG Base Excess Sodium Potassium Chloride Carbon Dioxide Anion Gap BUN Creatinine Estim Creat Clear Calc Estimated GFR POC Glucose Random Glucose Lactic Acid 1.3 Calcium Magnesium Total Bilirubin Direct Bilirubin AST ALT Alkaline Phosphatase Troponin I High Sens 299.0 H* B-Natriuretic Peptide Total Protein Albumin Influenza Type A (PCR) NEGATIVE Influenza Type B (PCR) NEGATIVE RSV RNA Qual (PCR) NEGATIVE SARS-CoV-2 RNA (RT-PCR) NEGATIVE 09/28/24 09/28/24 09/29/24 17:12 19:08 06:20 WBC 12.1 H RBC 3.25 L Hgb 9.0 L Hct 30.9 L MCV 95.1 MCH 27.7 MCHC 29.1 L RDW 15.9 Plt Count 296 MPV 10.5 Immature Gran % (Auto) Neut % (Auto) Lymph % (Auto) [place] % (Auto) Eos % (Auto) Baso % (Auto) Lymph # (Auto) [place] # (Auto) Eos # (Auto) Baso # (Auto) Abs Immat Gran (auto) Absolute Neuts (auto) Absolute Nucleated RBC 0.000 Nucleated RBC % (auto) 0.0 VBG pH VBG pCO2 VBG pO2 VBG HCO3 VBG O2 Saturation VBG Base Excess Sodium 137 Potassium 4.0 Chloride 99 Carbon Dioxide 29 Anion Gap 13 BUN 24 H Creatinine 2.90 H Estim Creat Clear Calc 40.2 Estimated GFR 24 POC Glucose 104 188 H Random Glucose 93 Lactic Acid Calcium 8.2 L Magnesium Total Bilirubin Direct Bilirubin AST ALT Alkaline Phosphatase Troponin I High Sens B-Natriuretic Peptide Total Protein Albumin Influenza Type A (PCR) Influenza Type B (PCR) RSV RNA Qual (PCR) SARS-CoV-2 RNA (RT-PCR) 09/29/24 07:49 WBC RBC Hgb Hct MCV MCH MCHC RDW Plt Count MPV Immature Gran % (Auto) Neut % (Auto) Lymph % (Auto) [place] % (Auto) Eos % (Auto) Baso % (Auto) Lymph # (Auto) [place] # (Auto) Eos # (Auto) Baso # (Auto) Abs Immat Gran (auto) Absolute Neuts (auto) Absolute Nucleated RBC Nucleated RBC % (auto) VBG pH VBG pCO2 VBG pO2 VBG HCO3 VBG O2 Saturation VBG Base Excess Sodium Potassium Chloride Carbon Dioxide Anion Gap BUN Creatinine Estim Creat Clear Calc Estimated GFR POC Glucose 74 Random Glucose Lactic Acid Calcium Magnesium Total Bilirubin Direct Bilirubin AST ALT Alkaline Phosphatase Troponin I High Sens B-Natriuretic Peptide Total Protein Albumin Influenza Type A (PCR) Influenza Type B (PCR) RSV RNA Qual (PCR) SARS-CoV-2 RNA (RT-PCR) Imaging Radiology Impressions: ITS Impressions Chest X-Ray 09/28/24 06:02 IMPRESSION: Mild pulmonary edema. Electronically signed by: Deana Harris MD 09/28/2024 09:44 AM [facility] Medications Medications Current Medications Acetaminophen (Acetaminophen 325 Mg Tablet) 650 mg PO Q6H PRN PRN Reason: Pain, Mild (Pain Scale 1-3), fever or headache Albuterol/Ipratropium (Albuterol/Iprat 2.5/0.5mg 3 Ml Ampul.Neb) 3 ml INHALE RQ4H WHILE AWAKE PRN PRN Reason: shortness of breath/wheeze Last Admin: 09/28/24 20:33 Dose: 3 ml Amiodarone HCl (Amiodarone Hcl 200 Mg Tablet) 200 mg PO DAILY [facility] Last Admin: 09/29/24 08:01 Dose: 200 mg Apixaban (Apixaban 5 Mg Tablet) 5 mg PO BID [facility] Last Admin: 09/29/24 08:02 Dose: 5 mg Atorvastatin Calcium (Atorvastatin Calcium 40 Mg Tablet) 40 mg PO BEDTIME [facility] Last Admin: 09/28/24 22:18 Dose: 40 mg Buprenorphine/Naloxone (Buprenorphine/Naloxone 8/2 Mg Film) 1 film SUBLINGUAL TID [facility] Last Admin: 09/29/24 09:14 Dose: 1 film Calcitriol (Calcitriol 0.25 Mcg Capsule) 0.5 mcg PO DAILY [facility] Last Admin: 09/29/24 08:01 Dose: 0.5 mcg Calcium Acetate (Calcium Acetate 667 Mg Capsule) 1,334 mg PO TIDWM [facility] Last Admin: 09/29/24 08:01 Dose: 1,334 mg Calcium Carbonate (Calcium Carbonate 750 Mg Tab.Chew) 750 mg PO Q4H PRN PRN Reason: Heartburn Glucose (Glucose Gel 15 Gm Gel..Gram.) 15 gm PO Q15M PRN; Protocol PRN Reason: per Hypoglycemia Standing Ord. Dextrose (D10) 250 mls @ 750 mls/hr IV Q15M PRN; Protocol PRN Reason: per Hypoglycemia Standing Ord. Insulin Glargine (Insulin Glargine,Hum.Rec.Anlog 100 Unit/Ml 10 Ml Vial) 10 unit SUBCUT DAILY [facility] Last Admin: 09/29/24 08:01 Dose: 10 unit Insulin Human Lispro (Insulin Lispro 100 Unit/Ml 3 Ml Vial) 0 unit SUBCUT QIDACHS [facility]; Protocol Last Admin: 09/29/24 07:50 Dose: Not Given Magnesium Hydroxide (Milk Of Magnesia 30 Ml Oral.Susp) 30 ml PO DAILY PRN PRN Reason: Constipation Melatonin (Melatonin 3 Mg Tablet) 6 mg PO BEDTIME PRN PRN Reason: Insomnia Last Admin: 09/28/24 22:18 Dose: 6 mg Metoprolol Succinate (Metoprolol Succinate Er 100 Mg Tab.Er.24h) 100 mg PO DAILY [facility]; Protocol Last Admin: 09/29/24 08:02 Dose: 100 mg Multivitamins/Vitamin C (Multivitamin Tablet) 1 tab PO DAILY [facility] Last Admin: 09/29/24 08:01 Dose: 1 tab Omeprazole (Omeprazole 20 Mg Capsule.Dr) 20 mg PO DAILY@0630 [facility] Last Admin: 09/29/24 06:32 Dose: 20 mg Ondansetron HCl (Ondansetron Hcl 4 Mg/2 Ml Vial) 4 mg IVPUSH Q8H PRN PRN Reason: Nausea and Vomiting Oxycodone HCl (Oxycodone Hcl Immed Release 5 Mg Tablet) 5 mg PO Q6H PRN PRN Reason: Pain, Severe (Pain Scale 7-10) Last Admin: 09/29/24 09:14 Dose: 5 mg Prednisone (Prednisone 20 Mg Tablet) 40 mg PO DAILY [facility]; Taper Stop: 10/06/24 08:59 Last Admin: 09/29/24 08:01 Dose: 40 mg Sodium Chloride (0.9 % Sodium Chloride Flush 3 Ml Syringe) 3 ml IVFLUSH QSHIFT [facility] Last Admin: 09/29/24 08:02 Dose: 3 ml Allergies Allergies Allergy/AdvReac Type Severity Reaction Status Date / Time No Known Allergies Allergy Verified 09/28/24 06:43 [No Known Allergies*] Assessment & Plan Assessment & Plan (1) Opioid use disorder, severe, dependence: Status: Acute Code(s): F11.20 - Opioid dependence, uncomplicated Assessment and Plan: * continue suboxone at current dose * will need to have new rx sent to [facility] pharmacy (pts request) at time of discharge * will be seen by [facility] via telehealth for continuation of treatment once home Total time managing care of this patient today _15___ minutes.
--- NOTE | 2024-09-29 13:05 | PM.DS ---
DS: Providers Provider Date of Service: 09/29/24 Date of admission: 09/28/24 08:36 Date of discharge: 09/29/24 Primary care physician: Cristina Stover MD Consults: 09/28/24 08:18 Addiction Medicine Routine Consulting Provider: Addiction Covering Reason for consultation: continues to abuse drugs 09/28/24 08:21 Consult to Nephrology Stat Consulting Provider: [facility] Reason for consultation: overload needs HD 09/28/24 13:29 Consult to Wound Care Routine Reason for consultation: open wounds to buttocks and scrotum DS: Diagnosis Discharge Diagnosis (1) Volume overload: Status: Acute (2) ESRD (end stage renal disease) on dialysis: Status: Acute (3) Acute respiratory failure with hypoxia: Status: Acute (4) COPD exacerbation: Status: Acute DS: Summary Hospital Course Hospital Course: from my admission H+P, 09/28/24: 44yo M with ESRD on HD, COPD, pAF on apixaban, PVD, HTN, DM2, HLD, polysubstance abuse, hx R BKA who was just admitted here 09/21-09/25/24 for respiratory failure requiring intubation and thoracentesis and discharged home. 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 Last HD 09/26. He was on his way to HD today when he became short of breath. EMS found his SaO2 to be 77%. In the ED he was found to be hypoxic to 88% on RA; currently 95% on 2L O2. CXR with pulmonary edema. No chest pain. No fever. No substance abuse since discharge reported. He was admitted to the telemetry unit and underwent HD 09/28 and again 09/29 with resolution of dyspnea and hypoxia. It also turns out that he had not picked up his prescription for prednisone taper for COPD exacerbation from discharge on 09/25/24. Prednisone taper was resume and he was discharged on an 8-day prednisone taper. VNA services through [facility] to resume. He qualified for 2L of oxygen at home at all times. Time Attestation Discharge Coordination Time (in mins): 35 Quality: Safe Use of Opioids Does Pt have an Active Cancer Diagnosis on the Problem List?: No Quality: Stroke Does the patient have a stroke diagnosis?: No Physical Exam Vital Signs: Vital Signs: Last Vital Signs Temp 98.0 F 09/29/24 08:00 Pulse 77 09/29/24 08:00 Resp 20 09/29/24 08:00 BP 117/60 09/29/24 08:00 Pulse Ox 98 09/29/24 08:00 O2 Del Method Nasal Cannula 09/29/24 08:00 O2 Flow Rate 1 09/29/24 08:00 BMI result Body Mass Index 38.2 Gen: NAD HEENT: sclera anicteric, moist mucus membranes Neck: supple, RIJ tunnel HD catheter without signs of infection Lungs: diminished air entry throughout Heart: regular rate and rhythm, no murmurs Abd: soft, non-tender, non-distended Ext: s/p R BKA Skin: warm/well-perfused, multiple hyperpigmented skin lesions Neuro: alert and oriented x3, no focal findings Psych: appropriate affect DS: Data Data Completed and Pending Completed studies during hospitalization [Text1]: Laboratory Results WBC 12.1 X10*3/uL (4.8-10.8) H 09/29/24 06:20 RBC 3.25 X10*6/uL (4.60-5.80) L 09/29/24 06:20 Hgb 9.0 g/dl (14.0-18.0) L 09/29/24 06:20 Hct 30.9 % (42.0-52.0) L 09/29/24 06:20 MCV 95.1 fL (80.0-98.0) 09/29/24 06:20 MCH 27.7 pg (27.0-33.0) 09/29/24 06:20 MCHC 29.1 g/dl (31.0-36.0) L 09/29/24 06:20 RDW 15.9 % (11.0-16.0) 09/29/24 06:20 Plt Count 296 X10*3/uL (160-400) 09/29/24 06:20 MPV 10.5 fL (9.4-12.4) 09/29/24 06:20 Immature Gran % (Auto) 0.5 % (0.0-0.4) H 09/28/24 06:39 Neut % (Auto) 82.0 % (45-73) H 09/28/24 06:39 Lymph % (Auto) 7.7 % (20-40) L 09/28/24 06:39 [place] % (Auto) 8.9 % (2-11) 09/28/24 06:39 Eos % (Auto) 0.7 % (0-4) 09/28/24 06:39 Baso % (Auto) 0.2 % (0-2) 09/28/24 06:39 Lymph # (Auto) 1.2 X10*3/uL (1.2-4.9) 09/28/24 06:39 [place] # (Auto) 1.4 X10*3/uL (0.1-1.2) H 09/28/24 06:39 Eos # (Auto) 0.1 X10*3/uL (0.0-0.4) 09/28/24 06:39 Baso # (Auto) 0.0 X10*3/uL (0.0-0.2) 09/28/24 06:39 Abs Immat Gran (auto) 0.08 X10*3/uL (0.00-0.03) H 09/28/24 06:39 Absolute Neuts (auto) 13.2 x10*3/uL (2.0-8.3) H 09/28/24 06:39 Absolute Nucleated RBC 0.000 X10*3/uL (0.0-0.012) 09/29/24 06:20 Nucleated RBC % (auto) 0.0 /100WBC (0.0-0.2) 09/29/24 06:20 VBG pH 7.34 (7.32-7.43) 09/28/24 07:54 VBG pCO2 61 mmHg 09/28/24 07:54 VBG pO2 152 mmHg 09/28/24 07:54 VBG HCO3 33 mmol/L (22-26) H 09/28/24 07:54 VBG O2 Saturation TNP 09/28/24 07:54 VBG Base Excess 6.4 mmol/L 09/28/24 07:54 Sodium 137 mmol/L (135-145) 09/29/24 06:20 Potassium 4.0 mmol/L (3.3-5.1) 09/29/24 06:20 Chloride 99 mmol/L (96-108) 09/29/24 06:20 Carbon Dioxide 29 mmol/L (22-29) 09/29/24 06:20 Anion Gap 13 (12-20) 09/29/24 06:20 BUN 24 mg/dL (9-16) H 09/29/24 06:20 Creatinine 2.90 mg/dL (0.5-1.4) H 09/29/24 06:20 Estim Creat Clear Calc 40.2 09/29/24 06:20 Estimated GFR 24 09/29/24 06:20 POC Glucose 122 mg/dL (60-115) H 09/29/24 13:41 Random Glucose 93 mg/dL (60-115) 09/29/24 06:20 Lactic Acid 1.3 mmol/L (0.5-2.0) 09/28/24 08:57 Calcium 8.2 mg/dL (8.4-10.2) L 09/29/24 06:20 Magnesium 2.0 mg/dL (1.6-2.6) 09/28/24 06:39 Total Bilirubin 0.3 mg/dL (0.0-1.0) 09/28/24 06:39 Direct Bilirubin 0.2 mg/dL (0.0-0.5) 09/28/24 06:39 AST 31 U/L (5-37) 09/28/24 06:39 ALT 13 U/L (0-40) 09/28/24 06:39 Alkaline Phosphatase 165 U/L (39-117) H 09/28/24 06:39 Troponin I High Sens 299.0 ng/L (<3.5-35.0) H* 09/28/24 08:58 B-Natriuretic Peptide 2010 pg/mL (<100) H 09/28/24 06:39 Total Protein 6.7 g/dL (6.5-8.0) 09/28/24 06:39 Albumin 2.7 g/dL (3.5-5.0) L 09/28/24 06:39 Influenza Type A (PCR) NEGATIVE (Negative) 09/28/24 08:24 Influenza Type B (PCR) NEGATIVE (Negative) 09/28/24 08:24 RSV RNA Qual (PCR) NEGATIVE (Negative) 09/28/24 08:24 SARS-CoV-2 RNA (RT-PCR) NEGATIVE (Negative) 09/28/24 08:24 Impressions Chest X-Ray 09/28/24 06:02 IMPRESSION: Mild pulmonary edema. Electronically signed by: Deana Harris MD 09/28/2024 09:44 AM [facility] Discharge Plan Discharge Anticipated Discharge Date/Time: 09/29/24 12:49 Patient Disposition: Home Health Service Discharge Diagnosis: hypoxia due to volume overload COPD exacerbation Referrals: Cristina Stover MD [Primary Care Provider] - 1 Week Discharge Medications: New prednisone 10 mg tablet 10 mg PO DIRECTED Qty: 20 0RF Rx Instructions: 40 mg daily x 2 days then 30 mg daily x 2 days then 20 mg daily x 2 days then 10 mg daily x 2 days Continued buprenorphine-naloxone [Suboxone] 8-2 mg film 1 film sublingual TID Qty: 63 0RF oxycodone 5 mg Tablet 5 mg PO Q6-8H PRN (Reason: Pain, Severe (Pain Scale 7-10)) Qty: 30 0RF Rx Instructions: Partial Fill upon patient request. multivitamin Tablet 1 tab PO DAILY Qty: 30 0RF atorvastatin 40 mg tablet 40 mg PO BEDTIME Qty: 30 0RF amiodarone 200 mg tablet 200 mg PO DAILY Qty: 90 0RF metoprolol succinate 100 mg tablet extended release 24 hr 100 mg PO DAILY Qty: 90 0RF omeprazole 20 mg capsule,delayed release(DR/EC) 20 mg PO DAILY@0630 Qty: 30 0RF calcitriol 0.25 mcg Capsule 0.5 mcg PO DAILY Qty: 60 0RF calcium acetate(phosphat bind) 667 mg Capsule 1,334 mg PO TIDWM Qty: 120 0RF (DME) pen needle, diabetic 32 gauge x 1/4 needle Qty: 100 0RF Rx Instructions: Use four times a day or as directed. Eliquis 5 mg Tablet 5 mg PO BID Qty: 180 0RF (DME) Dakins solution 1/4 strength 500ml See Rx Instructions .Route .MEDSUPPLY Qty: 1 0RF Rx Instructions: As directed insulin lispro [Humalog KwikPen Insulin] 100 unit/mL insulin pen See Protocol subcut TIDAC Protocol: Insulin Correction Scale Less than or equal to 110 ---- Give (units): 0 111 to 150 Give (units): 0 151 to 200 Give (units): 2 201 to 250 Give (units): 4 251 to 300 Give (units): 6 301 to 350 Give (units): 8 Greater than 350 Give (units): 10 Call MD if Blood Glucose > : 350 insulin glargine 100 unit/mL (3 mL) insulin pen 10 unit subcut DAILY melatonin 5 mg tablet 5 mg PO BEDTIME PRN (Reason: insomnia) (DME) FreeStyle Lite Strips Strip Qty: 100 0RF Rx Instructions: Test four times a day or as directed. (DME) blood-glucose meter Kit Qty: 1 0RF Rx Instructions: As Directed (DME) lancets [FreeStyle Lancets] 28 gauge misc Qty: 100 0RF Rx Instructions: Test four times a day or as directed. Discharge Orders: Discharge Order (Routine); Ordered 09/29/24 Ordered By: Eulogio Curtis Diet: low potassium low phospho Activity on Discharge: As tolerated Stand Alone Forms: Patient Portal Discharge page Print Language: Kyrgyz Activity Restrictions/Additional Instructions: Topical Wound Care Recommendations: Scrotum, Buttock and Coccyx - Off Load Pressure with Q2hr turns and use of pillows. Cleanse with PH balance spray or wipes, pat dry. ?Apply thin layer of Triad to wound bed - only pat and dab no scrub and rub when soiling occurs. Reapply thin layer PRN after each episode of incontinence. Recommend follow up out patient Wound Clinic at [address] [place] [id number] and to call for an appointment at time of discharge. [phone].? Care Plan Goals: respiratory health renal health Health Concerns: hypoxia due to volume overload COPD exacerbation Plan of Treatment: go to dialysis as per usual schedule take prednisone 10 mg tabs, taper as follows: 40 mg (4 tabs) daily x 2 days, then 30 mg (3 tabs) daily x 2 days, then 20 mg (2 tabs) daily x 2 days, then 10 mg (1 tab) daily x 2 days 2Lpm oxygen at all times Please follow up with your primary care doctor within 1 week. Return to the hospital if you experience recurrent or worsening symptoms. Assessment: See Discharge Summary.
[2024-09-29 13:46] LABS: Glucose, Whole Blood 122 mg/dL (60-115)
--- NOTE | 2024-09-29 15:17 | MHC.CM.PN ---
Pt has been medically cleared for DC, he will go home via BLS and resume HD at [facility], and VNA from [facility].
[2024-09-29 16:43] LABS: Glucose, Whole Blood 311 mg/dL (60-115)
[2024-09-29] MEDS: Calcium Carbonate 750 MG TAB.CHEW PO (16:54)
[2024-09-29] MEDS: Insulin Lispro 100 UNIT/ML 3 ML VIAL SUBCUT (16:54)
--- NOTE | 2024-09-29 18:00 | P.CDIM_ITS ---
PROVIDER RESPONSE TEXT: To clarify, the appropriate diagnosis supported by the clinical indicators: Acute non-cardiac pulmonary edema due to fluid overload QUERY TEXT: PHYSICIAN'S DOCUMENTATION REQUEST Date of Query: 09/29/2024 10:01 AM EST Patient Name: SOLOMON NARANJO Admit Date: 09/28/2024 Dear Eulogio Curtis MD, A review of the medical record indicates additional documentation may be needed. Please review below and update the documentation accordingly. Clinical Indicators: H&P 09/28 - In ED he was found to be hypoxic to 88% on RA; CXR with pulmonary edema. Dyspnea, shortness of breath, +1 pedal edema, fluid overload, Hemodialysis. BNP 2009 H ED: PMH Congestive heart failure History of echo performed. Based on the above, could you please provide, in the Progress Notes, further specificity regarding th e acuity and etiology of the pulmonary edema? Acute non-cardiac pulmonary edema due to fluid overload Acute non-cardiac pulmonary edema due to other cause Please specify other cause Acute pulmonary edema due to heart failure Please further specify the type and acuity Chronic pulmonary edema due to non-cardiac etiology Please specify cause Chronic pulmonary edema due to heart failure Please further specify the type and acuity Other (explain) Clinically unable to determine (explain) Thank you, Keely Jalloh, CCS, CDIS Use of terms such as suspected, likely, concern for, or probable (associated with a specific diagnosi s that is being evaluated, monitored, or treated as if it exists) are acceptable and can be coded in the inpatient se tting, when documented at the time of discharge. Please use your independent medical judgment in providing your response. THIS QUERY IS PART OF THE PERMANENT MEDICAL RECORD
== END 2024-09-29 17:48 | disposition home health service (06) | DRG 425 ==
LOC: HO.ED 07:06 → HO.EDOVER 08:45 → HO.IMC 09:15
PROVIDERS: Emergency Medicine; Physician Assistant Medical; Admitting Provider Family Medicine; Emergency Provider Emergency Medicine; PCP Family Medicine; Visit Provider Family Medicine
DX: E87.70 Fluid overload, unspecified (principal); J96.01 Acute respiratory failure with hypoxia; I12.0 Hypertensive chronic kidney disease with stage 5 chronic kidney disease or end stage renal disease; E11.22 Type 2 diabetes mellitus with diabetic chronic kidney disease; F11.20 Opioid dependence, uncomplicated; J44.1 Chronic obstructive pulmonary disease with (acute) exacerbation; T38.0X6A Underdosing of glucocorticoids and synthetic analogues, initial encounter; I48.0 Paroxysmal atrial fibrillation; E78.5 Hyperlipidemia, unspecified; F19.20 Other psychoactive substance dependence, uncomplicated; Z89.511 Acquired absence of right leg below knee; N18.6 End stage renal disease; Z99.2 Dependence on renal dialysis; Z20.822 Contact with and (suspected) exposure to COVID-19; Z79.4 Long term (current) use of insulin; Z79.01 Long term (current) use of anticoagulants; Z79.899 Other long term (current) drug therapy
CPT/HCPCS: 0241U; 36415; 71045; 80048; 80076; 82803; 82947; 83605; 83735; 83880; 84484; 85025; 85027; 87040; 90999; 93005; 99285; J0885; J1644

== ENCOUNTER → 2024-09-28 06:02 | Outpatient (BNV) | payer MEDICAID, SELFPAY | PROVIDERS: Admitting Provider Family Medicine; Emergency Provider Emergency Medicine; PCP Family Medicine; Visit Provider Internal Medicine | DX: R94.31 Abnormal electrocardiogram [ECG] [EKG] (principal) | CPT/HCPCS: 93010 ==

== ENCOUNTER → 2024-09-28 08:36 | Outpatient (BNV) | payer MEDICAID, SELFPAY | PROVIDERS: Admitting Provider Family Medicine; Emergency Provider Emergency Medicine; PCP Family Medicine; Visit Provider Family Medicine | DX: N18.6 End stage renal disease (principal); Z99.2 Dependence on renal dialysis; J96.01 Acute respiratory failure with hypoxia; J44.1 Chronic obstructive pulmonary disease with (acute) exacerbation; E87.70 Fluid overload, unspecified | CPT/HCPCS: 99223; 99239 ==

== ENCOUNTER → 2024-09-28 08:36 | Outpatient (BNV) | payer MEDICAID, SELFPAY | PROVIDERS: Admitting Provider Family Medicine; Emergency Provider Emergency Medicine; PCP Family Medicine; Visit Provider Nurse Practitioner Family | DX: N18.6 End stage renal disease (principal); Z99.2 Dependence on renal dialysis; J96.01 Acute respiratory failure with hypoxia; R60.1 Generalized edema | CPT/HCPCS: 90935; 99222 ==

== ENCOUNTER → 2024-09-28 08:36 | Outpatient (BNV) | payer MEDICAID, SELFPAY | PROVIDERS: Admitting Provider Family Medicine; Emergency Provider Emergency Medicine; PCP Family Medicine; Visit Provider Nurse Practitioner Psychiatric/Mental Health | DX: F11.20 Opioid dependence, uncomplicated (principal) | CPT/HCPCS: 99231 ==

== ENCOUNTER 2024-10-03 18:07 | Inpatient (IN) | payer MEDICAID, SELFPAY ==
--- NOTE | ~2024-10-03 | IR_ITS ---
CLINICAL HISTORY: End-stage renal disease. Blood cultures are negative x 48 hours. The patient presents to interventional radiology for placement of a tunneled central venous catheter for hemodialysis. PROCEDURES: 1. Real-time ultrasound-guided access into the right internal jugular vein after documentation of selected vessel patency, and permanent imaging storing in the patient record. 2. Placement of a 14.5 fr 27 cm tunneled, dual-lumen hemodialysis catheter. Clinician: Gurjit Palomo PA-C MEDICATIONS: -Fentanyl 50 mcg, Lidocaine 1% 10 mL SQ. -Antibiotics: None -For additional details, please see nursing flowsheet. COMPLICATIONS: None. ESTIMATED BLOOD LOSS: <5 ml SPECIMENS: None FLUOROSCOPY TIME: 1.0 min PROCEDURE NOTE: The procedure, risks, benefits, and alternatives were carefully explained to patient, and written informed consent was obtained. The patient was placed supine on the fluoroscopy table. A timeout was performed. The right neck and chest was prepped and draped in usual sterile fashion. Local anesthesia was administered to the access site with lidocaine. Under ultrasound guidance, the right internal jugular vein was accessed with a 5 Fr micropuncture set. A 0.035 in wire was advanced to the IVC to maintain access during the tunneling process. Next, subcutaneous lidocaine was administered to the chest. Using blunt dissection, a subcutaneous tunnel was created that connects from the upper chest to the venotomy site. The dialysis catheter was pulled through the tunnel. The tract in the vein was dilated and a peel-away sheath was advanced over the wire. The catheter was advanced through the sheath, which was subsequently peeled away. The catheter was tested, flushed, and sutured to the skin with its tip in the high right atrium. A permanent fluoroscopic image of the chest was saved to PACS. The catheter ports were packed with heparin per routine protocol. The patient was stable after the procedure and was transferred to the post anesthesia care unit. This procedure was performed under moderate sedation with a dedicated nurse and continuous monitoring of vital signs. FINDINGS: 1. Patent right internal jugular vein. 2. Placement of a tunneled, dual-lumen hemodialysis catheter as above. 3. Catheter flushes and aspirates very well with a 10 mL syringe. No pneumothorax. IR/IR us guide venous access IMPRESSION: Placement of a tunneled hemodialysis catheter in the right internal jugular vein. PLAN: -The catheter may be used immediately. This procedure was performed by Gurjit Palomo PA-C, and directly supervised by Dr. Morrell. Electronically signed by: Michael Morrell MD 10/21/2024 02:51 PM [facility]
--- NOTE | ~2024-10-03 | IR_ITS ---
Permacath removal Patient presents with a tunneled dialysis catheter. Patient has bacteremia. Referring physician requests removal. The right chest was prepped and draped in routine sterile fashion. 1% lidocaine was used for local anesthesia. Using blunt dissection, the tunneled dialysis catheter was removed from the chest wall without complication. After hemostasis was obtained, a dry sterile dressing was applied. Patient tolerated the procedure well. The tip was sent for culture. IR/IR cvc remove tunnel w prt/chart picker Impression: Permacath removal This procedure was performed by Gurjit Palomo PA-C and supervised by Dr. Morrell Electronically signed by: Michael Morrell MD 10/21/2024 02:51 PM [facility] [place]
--- NOTE | ~2024-10-03 | IR_ITS ---
CLINICAL HISTORY: Patient requires dialysis. The patient presents to interventional radiology for placement of a non-tunneled central venous catheter for hemodialysis. PROCEDURES: 1. Real-time ultrasound-guided access into the left internal jugular vein after documentation of selected vessel patency, and permanent imaging storing in the patient record. 2. Placement of a 12.0 fr 24 cm non-tunneled,trialysis hemodialysis catheter. MEDICATIONS: -Lidocaine 1% 10 mL SQ. -For additional details, please see nursing flowsheet. COMPLICATIONS: None. ESTIMATED BLOOD LOSS: <5 ml SPECIMENS: None FLUOROSCOPY TIME: 0.2 min PROCEDURE NOTE: The procedure, risks, benefits, and alternatives were carefully explained to patient, and written informed consent was obtained. The patient was placed supine on the fluoroscopy table. A timeout was performed. The left neck and chest was prepped and draped in usual sterile fashion. Local anesthesia was administered to the access site with lidocaine. Under ultrasound guidance, the left internal jugular vein was accessed with a 4 Fr micropuncture set. A 0.035 in wire was advanced into the IVC. The tract in the vein was serially dilated. Over the wire, a 12.0 fr 24 non-tunneled, hemodialysis catheter was advanced, with the tip located at the cavoatrial junction. The wire was removed. The catheter was tested, flushed, and sutured to the skin. A permanent fluoroscopic image of the chest was saved to PACS. The catheter ports were packed with heparin per routine protocol. The patient was stable after the procedure and was transferred to the medical floor. There were no immediate complications. FINDINGS: 1. Patent left internal jugular vein. Occluded right internal jugular vein 2. Placement of a non-tunneled, dual-lumen hemodialysis catheter as above. 3. Catheter flushes and aspirates very well with a 10 mL syringe. No pneumothorax. IR/IR cvc insert non tunnel IMPRESSION: Placement of a non-tunneled hemodialysis catheter in the left internal jugular vein. PLAN: -The catheter may be used immediately. Electronically signed by: Michael Morrell MD 10/08/2024 01:56 PM [facility]
--- NOTE | ~2024-10-03 | XR_ITS ---
EXAMINATION: XR CHEST CLINICAL INFORMATION: f/u chest tube removal COMPARISON: CXR on 10/08/24 TECHNIQUE: Frontal view of the chest was obtained. FINDINGS: The cardiac silhouette is normal. There are no areas of consolidation. There are no pleural effusions or pneumothoraces. The bones and soft tissues are unremarkable for the patient's age. Chest tube removed. XR/XR chest 1V IMPRESSION: No pneumothorax. Electronically signed by: Deana Harris MD 10/08/2024 10:23 AM [facility]
--- NOTE | ~2024-10-03 | US_ITS ---
PROCEDURE: Ultrasound-guided chest tube placement HISTORY: Left loculated pleural effusion SPECIMEN: A specimen was appropriately labeled and sent to the laboratory as requested ACCESS: 5 fr Yueh needle/catheter MEDICATIONS: 10 mL 1% lidocaine TECHNIQUE/FINDINGS Appropriate preprocedural clinical history and imaging studies were reviewed. The patient was brought to the department and placed in the right lateral decubitus position. Ultrasound images of the left thorax were obtained to localize a large loculated pleural effusion. Permanent ultrasound images were saved. The risks and benefits and possible complications were discussed with the patient and consent form was signed. An area of the patient's left back was prepped and draped in the usual sterile fashion. 10 mL of 1% lidocaine was used to obtain local anesthesia of the skin and deeper tissues. A 25 gauge hypodermic needle was introduced to sample pleural fluid and demonstrate a safe access route. A 5 Yi Yueh catheter was then used to access the pleural cavity. A 0.035 guidewire was then placed through the catheter and into the chest. The access site was then dilated. A 12 fr locking catheter was then advanced over the wire and into the left pleural space. The wire was removed and the catheter was secured to the skin with a single suture and a sterile dressing was applied over the site. The catheter was then connected to a closed chest drainage system. The patient tolerated the procedure well. There were no immediate complications US/US drain thoracentesis w image Impression: Ultrasound-guided left chest tube placement yielding constantino fluid. This procedures performed by Gurjit Palomo PA-C and supervised by Dr. Morrell. Electronically signed by: Michael Morrell MD 10/07/2024 12:57 PM [facility] [place]
--- NOTE | ~2024-10-03 | IR_ITS ---
CLINICAL HISTORY: End-stage renal disease. Blood cultures are negative x 48 hours. The patient presents to interventional radiology for placement of a tunneled central venous catheter for hemodialysis. PROCEDURES: 1. Real-time ultrasound-guided access into the right internal jugular vein after documentation of selected vessel patency, and permanent imaging storing in the patient record. 2. Placement of a 14.5 fr 27 cm tunneled, dual-lumen hemodialysis catheter. Clinician: Gurjit Palomo PA-C MEDICATIONS: -Fentanyl 50 mcg, Lidocaine 1% 10 mL SQ. -Antibiotics: None -For additional details, please see nursing flowsheet. COMPLICATIONS: None. ESTIMATED BLOOD LOSS: <5 ml SPECIMENS: None FLUOROSCOPY TIME: 1.0 min PROCEDURE NOTE: The procedure, risks, benefits, and alternatives were carefully explained to patient, and written informed consent was obtained. The patient was placed supine on the fluoroscopy table. A timeout was performed. The right neck and chest was prepped and draped in usual sterile fashion. Local anesthesia was administered to the access site with lidocaine. Under ultrasound guidance, the right internal jugular vein was accessed with a 5 Fr micropuncture set. A 0.035 in wire was advanced to the IVC to maintain access during the tunneling process. Next, subcutaneous lidocaine was administered to the chest. Using blunt dissection, a subcutaneous tunnel was created that connects from the upper chest to the venotomy site. The dialysis catheter was pulled through the tunnel. The tract in the vein was dilated and a peel-away sheath was advanced over the wire. The catheter was advanced through the sheath, which was subsequently peeled away. The catheter was tested, flushed, and sutured to the skin with its tip in the high right atrium. A permanent fluoroscopic image of the chest was saved to PACS. The catheter ports were packed with heparin per routine protocol. The patient was stable after the procedure and was transferred to the post anesthesia care unit. This procedure was performed under moderate sedation with a dedicated nurse and continuous monitoring of vital signs. FINDINGS: 1. Patent right internal jugular vein. 2. Placement of a tunneled, dual-lumen hemodialysis catheter as above. 3. Catheter flushes and aspirates very well with a 10 mL syringe. No pneumothorax. IR/IR cvc insert central tunnel IMPRESSION: Placement of a tunneled hemodialysis catheter in the right internal jugular vein. PLAN: -The catheter may be used immediately. This procedure was performed by Gurjit Palomo PA-C, and directly supervised by Dr. Morrell. Electronically signed by: Michael Morrell MD 10/21/2024 02:51 PM [facility]
--- NOTE | ~2024-10-03 | CT_ITS ---
EXAMINATION: CT CHEST WITHOUT CONTRAST CLINICAL INFORMATION: Evaluate for left empyema. COMPARISON: No prior chest CT. TECHNIQUE: Multidetector volumetric CT imaging of the chest was done. Axial MIP volume rendering provided. Sagittal and coronal reformatted images were obtained. This CT examination was performed using dose optimization techniques as appropriate, variously including the following: *Automated exposure control *Adjustment of mA and/or kV according to patient size (this includes techniques or standardized protocols for targeted exams where dose is matched to indication/reason for exam; i.e. extremities or head) *Use of iterative reconstruction technique DLP: 371 mGy-cm FINDINGS: Limited by beam hardening artifact. LUNGS/PLEURA: Mild elevation of the right hemidiaphragm. A small bore left chest tube enters posteriorly between the left 9th and 10th ribs. Its [place] loop lies at the medial aspect of the left costophrenic angle. The catheter appears kinked at its skin insertion site (image 32, sagittal series 7). Small to moderate amount of right pleural fluid and small to moderate left hydropneumothorax. Mild associated bibasilar predominantly dependent airspace disease. No suspicious lung nodule identified. Patent central bronchi. MEDIASTINUM: Limited by anasarca and lack of intravenous contrast. No evidence of adenopathy by size criteria. Normal-appearing thyroid. Heart upper normal in size to mildly enlarged. Decreased blood pool density, suggesting anemia. No pericardial effusion. CORONARY ARTERY CALCIFICATION: Moderate. CHEST WALL/AXILLA: Anasarca. Small amount of subcutaneous gas in the right subclavian region. Mild bilateral gynecomastia. No lymphadenopathy by size criteria. Probable reactive bilateral axillary nodes. UPPER ABDOMEN: Unremarkable. OSSEOUS STRUCTURES: Old, healed fractures of the right eighth and ninth ribs laterally. CT/CT chest wo IV con IMPRESSION: A small bore left chest tube enters posteriorly between the left 9th and 10th ribs. Its [place] loop lies at the medial aspect of the left costophrenic angle. The catheter appears kinked at its skin insertion site. Recommend clinical correlation. Small to moderate amount of right pleural fluid and small to moderate left hydropneumothorax. Mild associated bibasilar predominantly dependent airspace disease. Anasarca. Anemia. Additional findings as above. Electronically signed by: Uday Solares MD 10/08/2024 09:52 AM EST
--- NOTE | ~2024-10-03 | XR_ITS ---
EXAMINATION: XR CHEST CLINICAL INFORMATION: f/u left pleural effusion COMPARISON: CT chest on 10/06/24 TECHNIQUE: Frontal view of the chest was obtained. FINDINGS: The cardiac silhouette is normal. There is mild diffuse bronchial wall thickening. There are no areas of consolidation. There are no pleural effusions or pneumothoraces. Left pleural basilar pigtail catheter in place. XR/XR chest 1V IMPRESSION: No pleural effusion, pigtail catheter in place. Electronically signed by: Deana Harris MD 10/08/2024 10:21 AM [facility]
--- NOTE | ~2024-10-03 | XR_ITS ---
EXAMINATION: XR CHEST CLINICAL INFORMATION: SOB COMPARISON: Chest x-ray September 28, 2024 TECHNIQUE: Frontal portable view of the chest was obtained. 1932 hours FINDINGS: Lung volumes are low. This accentuates bronchovascular markings. Pulmonary vascularity has improved since prior study September 28, 2024. Central port catheter tip at cavoatrial junction. Large volume left pleural effusion. Probable consolidation atelectasis at left lung base as well. Probable small right pleural effusion. XR/XR chest 1V IMPRESSION: 1. Low lung volumes. 2. Large volume left pleural effusion. Probable consolidation atelectasis at left lung base. 3. Probable small right pleural effusion. Electronically signed by: Gibran Melgar MD 10/03/2024 08:27 PM EST
[2024-10-03 18:13] VITALS: BP 145/57; PULSE 80; O2SAT 100
--- NOTE | 2024-10-03 18:14 | ED_ITS ---
HPI - SOB/Dyspnea General Chief Complaint: Dyspnea Stated Complaint: SOB Time Seen by Provider: 10/03/24 18:14 Source: patient and RN notes reviewed Mode of arrival: ambulatory Limitations: no limitations History of Present Illness ED Provider: Raquel Gonzalez PA-C HPI Narrative: 44yo M with ESRD on HD, COPD, pAF on apixaban, PVD, HTN, DM2, HLD, polysubstance abuse, hx R BKA who was just admitted here 09/21-09/25/24 for respiratory failure requiring intubation and thoracentesis and discharged home, And again admitted on 09/28/2024 for hemodialysis, where he received hemodialysis on 09/28 and again on 09/29 which resolved his shortness for breath and hypoxia. 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 He was discharged on 09/29 on a prescription for prednisone. He states that he last had dialysis performed on 10/01. He is scheduled to have dialysis tomorrow. He states that the shortness of breath worsened today and called EMS to be evaluated. He has been taking the prescribed prednisone and using the 2L of nasal cannula at home but believes that this has not helped with his symptoms. he denies any chest pain, abdominal pain, nausea, vomiting or diarrhea. MD elicited complaint: shortness of breath Associated symptoms: denies other symptoms Treatment prior to arrival: oxygen and bronchodilator Related Data Home Medications ?Medication ?Instructions ?Recorded ?Confirmed insulin glargine 100 unit/mL (3 10 unit subcut DAILY 09/28/24 10/04/24 mL) subcutaneous pen insulin lispro 100 unit/mL See Protocol subcut TIDAC 09/28/24 10/04/24 subcutaneous pen (Humalog KwikPen (U-100) Insulin) melatonin 5 mg tablet 5 mg PO BEDTIME PRN insomnia 09/28/24 10/04/24 Previous Rx's ?Medication ?Instructions ?Recorded buprenorphine 8 mg-naloxone 2 mg 1 film sublingual TID #63 ea 09/20/24 sublingual film (Suboxone) oxycodone 5 mg tablet 5 mg PO Q6-8H PRN Pain, Severe 09/20/24 (Pain Scale 7-10) #30 tabs Dakins solution 1/4 strength #1 ea 09/25/24 amiodarone 200 mg tablet 200 mg PO DAILY #90 tabs 09/25/24 apixaban 5 mg tablet (Eliquis) 5 mg PO BID #180 tabs 09/25/24 atorvastatin 40 mg tablet 40 mg PO BEDTIME #30 tabs 09/25/24 calcitriol 0.25 mcg capsule 0.5 mcg (2 x 0.25 mcg) PO DAILY 09/25/24 #60 caps calcium acetate(phosphat bind) 667 1,334 mg (2 x 667 mg) PO TIDWM 09/25/24 mg capsule #120 caps metoprolol succinate 100 mg 100 mg PO DAILY #90 tabs 09/25/24 tablet,extended release 24 hr multivitamin 1 tab PO DAILY #30 tabs 09/25/24 omeprazole 20 mg capsule,delayed 20 mg PO DAILY@0630 #30 caps 09/25/24 release pen needle, diabetic 32 gauge x #100 ea 09/25/2411/06 blood sugar diagnostic (FreeStyle #100 ea 09/29/24 Lite Strips) blood-glucose meter #1 ea 09/29/24 lancets 28 gauge (FreeStyle #100 ea 09/29/24 Lancets) prednisone 10 mg tablet 10 mg PO DIRECTED #20 tabs 09/29/24 Allergies Allergy/AdvReac Type Severity Reaction Status Date / Time No Known Allergies Allergy Verified 10/03/24 18:21 [No Known Allergies*] Review of Systems 2 Review of Systems: Yes all other systems are reviewed and are negative Constitutional: Constitutional: Reports as per HPI [facility] Past Medical History Medical History (Updated 10/11/24 @ 10:05 by LEDY Villafuerte) Bacteremia Volume overload Opioid use disorder, severe, dependence Paroxysmal atrial flutter Cardiomyopathy Pericardial effusion Atrial flutter Need for acute hemodialysis Leukocytosis Anemia Anemia Transfusion history Atrial flutter, paroxysmal COPD (chronic obstructive pulmonary disease) Constipation Callus of foot Seizure Polysubstance abuse CKD (chronic kidney disease) stage 3, GFR 30-59 ml/min Foot osteomyelitis, left Amputation of toe of right foot Diabetic ulcer of right foot Hyperglycemia due to type 2 diabetes mellitus Renal failure Sleep apnea Diabetes HTN (hypertension) Surgical History Hx of right BKA History of surgical procedure (~04/24/23) Social History Social History Household Members: Family Household Members Other:: mother Housing: Apartment Do you presently have visiting nurse or other home services: Yes Unable to assess alcohol history related to: Unable to respond Alcohol intake: former Comment: bilateral wrist restraints/propofol drip for airway safety Patient Tobacco Use Status: Former Tobacco user Tobacco use type: Cigarette Cigarette Packs Per Day: 0.5 Cigarettes Per Day: 10.0 Years Smoked: 33 e-Cigarette/Vaping Use: Currently Using Second Hand Smoke Exposure: Yes Substance Use Type: Crack/Cocaine, Heroin, Marijuana and Opiates service: No Physical Exam 2 Vital Signs: Vital Signs: Last Vital Signs Temp 97.3 F 10/11/24 03:16 Pulse 68 10/11/24 03:16 Resp 18 10/11/24 03:16 BP 101/53 L 10/11/24 03:16 Pulse Ox 100 10/11/24 03:16 O2 Del Method Nasal Cannula 10/11/24 03:16 O2 Flow Rate 2 10/11/24 03:16 Oxygen Flow Rate 2 10/03/24 18:18 BMI result Body Mass Index 35.5 Const: General: cooperative, comfortable and no acute distress O rientation/consciousness: patient oriented x3 Limitations: no limitations HEENT: Head: Yes normal to inspection, Yes normocephalic and Yes atraumatic Ears: hearing grossly normal bilaterally General nose exam: Normal external nose present Face and sinus: Yes normal facial exam Mouth: Normal oral and palatal mucosa present, oropharynx normal and moist mucous membranes Throat: Yes posterior oropharynx normal Eyes: General: appearance normal, both eyes and all related structures E yelids: Yes eyelids normal Conjunctivae: conjunctivae normal Sclerae: s clerae normal Pupils: Equal, round and reactive pupils present EOM: EOMs intact bilaterally Neck: Neck: Yes normal visual inspection, Yes full ROM and Yes no lymphadenopathy Lymphatic: no lymphadenopathy noted Chest: Chest palpation & inspection: normal inspection of the chest Resp: Other: coarse crackles noted throughout all lung thomson. Diminished throughout Effort & Inspection: normal respiratory effort and able to speak in complete sentences Cardio: Rate: regular rate Rhythm: regular rhythm Heart sounds: S1 normal heart sound present and S2 normal heart sound present GI: Other: abdomen is firm, but nontender. Inspection: Yes normal to inspection Skin: General skin exam: no rashes or lesions noted Trauma: no lacerations or abrasions Wounds: no wounds Neuro: General: patient oriented x3 and moves all extremities Cranial nerves: Yes Equal, round and reactive pupils present Extrem: Other: 1+ pitting edema noted bilaterally. Rig ht BKA noted. No overlying skin changes, or rashes. Course Reevaluation(s) Reevaluation #1: Phlebotomy at bedside, difficult to obtain blood. Time: 20:35 Reevaluation #2: Critical creatinine at 4.51, BUN 43, Trop 269.9, BNP 2416, albumin 2.6. BNP worsening from previous, CXR showing large pleural effusion. Pt is scheduled for dialysis tomorrow however given increased shortness of breath, pt needs to be admitted for dialysis. Discussed case with Dr Christianson, who deems that patient not good canidate for ED thoracentesis, patient needs dialysis first. Dr. Christianson spoke to Dr. Yañez, and patient can wait to be dialyzed in the AM. Transfer of care initiated to the hospital service. Time: 22:45 Medications Administered Generic Name Dose Route Start Last Admin Trade Name Freq PRN Reason Stop Dose Admin Acetaminophen 975 mg 10/04/24 00:04 10/05/24 16:51 Acetaminophen 325 Mg Tablet PO 975 mg Q6H PRN Administration Pain, Mild (Pain Scale 1-3), fever or headache Acetaminophen 650 mg 10/04/24 19:38 10/04/24 20:13 Acetaminophen Supp 650 Mg Supp.Rect RI 650 mg Q6H PRN Administration Fever >101 Albuterol Sulfate 2.5 mg 10/06/24 21:45 10/08/24 23:21 Albuterol Sulfate (0.083%) 2.5 Mg/3 Ml Vial.Neb INHALE 2.5 mg Q4H PRN Administration Shortness of Breath/Wheezing Amiodarone HCl 200 mg 10/04/24 10:30 10/10/24 08:19 Amiodarone Hcl 200 Mg Tablet PO 200 mg DAILY LYSSA Administration Apixaban 5 mg 10/04/24 10:30 10/10/24 20:52 Apixaban 5 Mg Tablet PO 5 mg BID LYSSA Administration Atorvastatin Calcium 40 mg 10/04/24 21:00 10/10/24 20:53 Atorvastatin Calcium 40 Mg Tablet PO 40 mg BEDTIME [facility] Administration Buprenorphine/Naloxone 1 film 10/04/24 10:30 10/11/24 09:40 Buprenorphine/Naloxone 8/2 Mg Film SUBLINGUAL 1 film TID [facility] Administration Calcitriol 0.5 mcg 10/04/24 10:30 10/10/24 08:20 Calcitriol 0.25 Mcg Capsule PO 0.5 mcg DAILY [facility] Administration Calcium Acetate 1,334 mg 10/04/24 12:00 10/11/24 09:33 Calcium Acetate 667 Mg Capsule PO Not Given TIDWM [facility] Insulin Glargine 10 unit 10/05/24 09:00 10/10/24 08:19 Insulin Glargine,Hum.Rec.Anlog 100 Unit/Ml 10 Ml Vial SUBCUT 10 unit DAILY [facility] Administration Insulin Human Lispro 0 unit 10/04/24 07:30 10/11/24 08:20 Insulin Lispro 100 Unit/Ml 3 Ml Vial SUBCUT Not Given QIDACHS [facility] Protocol Metoprolol Succinate 100 mg 10/04/24 10:30 10/10/24 08:19 Metoprolol Succinate Er 100 Mg Tab.Er.24h PO 100 mg DAILY [facility] Administration Protocol Multivitamins/Vitamin C 1 tab 10/04/24 10:30 10/10/24 08:19 Multivitamin Tablet PO 1 tab DAILY [facility] Administration Omeprazole 20 mg 10/04/24 10:30 10/11/24 05:43 Omeprazole 20 Mg Capsule.Dr PO 20 mg DAILY@0630 [facility] Administration Oxycodone HCl 5 mg 10/09/24 17:24 10/11/24 05:43 Oxycodone Hcl Immed Release 5 Mg Tablet PO 5 mg Q6H PRN Administration Pain, Severe (Pain Scale 7-10) Sodium Chloride 3 ml 10/04/24 08:00 10/10/24 23:07 0.9 % Sodium Chloride Flush 3 Ml Syringe IVFLUSH 3 ml QSHIFT [facility] Administration Torsemide 80 mg 10/05/24 21:00 10/10/24 20:52 Torsemide 20 Mg Tablet PO 80 mg BID [facility] Administration Protocol Discontinued Medications Generic Name Dose Route Start Last Admin Trade Name Freq PRN Reason Stop Dose Admin Ceftriaxone Sodium 1 gm 10/04/24 20:00 10/04/24 20:21 Ceftriaxone Sodium 1 Gm Vial IVPUSH Not Given Q24H [facility] Epoetin Ruddy 20,000 unit 10/07/24 08:46 10/07/24 09:03 Epoetin Ruddy 20,000 Unit/Ml Vial SUBCUT 10/07/24 08:47 20,000 unit ONCE ONE Administration Epoetin Ruddy-epbx 10,000 unit 10/04/24 09:39 10/04/24 15:27 Epoetin Ruddy-Epbx 10,000 Unit/Ml Vial SUBCUT 10/04/24 09:40 Not Given ONCE ONE Furosemide 60 mg 10/04/24 00:04 10/04/24 00:25 Furosemide 100 Mg/10 Ml Vial IVPUSH 10/04/24 00:05 60 mg ONCE STA Administration Protocol Vancomycin HCl 2,000 mg in 500 mls @ 250 mls/hr 10/04/24 19:45 10/04/24 23:03 Vancomycin/Ns IV 10/04/24 21:44 Infused ONCE ONE Infusion Piperacillin Sod/Tazobactam 50 mls @ 100 mls/hr 10/04/24 20:00 10/05/24 17:11 Sod 2.25 gm/ Sodium Chloride IV Not Given Q8H LYSSA Sodium Chloride 1,000 mls @ 125 mls/hr 10/04/24 20:00 10/05/24 18:38 Ns IVCONT Infused .Q8H LYSSA Infusion Albumin Human 100 mls @ 100 mls/hr 10/04/24 23:47 10/05/24 01:57 Kedbumin 25 % IV 10/05/24 00:46 Infused ONCE ONE Infusion Cefazolin Sodium/Dextrose 2 gm in 50 mls @ 100 mls/hr 10/05/24 16:00 10/08/24 18:37 Ancef IV Not Given [email or web address] LYSSA Vancomycin HCl 500 mg/ Sodium 110 mls @ 110 mls/hr 10/06/24 19:15 10/06/24 21:18 Chloride IV 10/06/24 20:14 Infused ONCE ONE Infusion Cefazolin Sodium/Dextrose 2 gm in 50 mls @ 100 mls/hr 10/08/24 20:00 10/08/24 22:45 Ancef IV Infused [id number] LYSSA Infusion Vancomycin HCl 500 mg/ Sodium 110 mls @ 110 mls/hr 10/08/24 19:45 10/09/24 00:39 Chloride IV 10/08/24 20:44 Infused ONCE ONE Infusion Lidocaine HCl 5 ml 10/05/24 10:20 10/05/24 10:21 Lidocaine Hcl 1 % Mpf 5 Ml Vial SUBCUT 10/05/24 10:21 5 ml ONCE ONE Administration Morphine Sulfate 2 mg 10/06/24 03:21 10/06/24 03:49 Morphine Sulfate 2 Mg/Ml Cartridge IVPUSH 10/06/24 03:22 2 mg ONCE ONE Administration Protocol Oxycodone HCl 5 mg 10/04/24 09:10 10/09/24 05:31 Oxycodone Hcl Immed Release 5 Mg Tablet PO 5 mg Q6H PRN Administration Pain, Severe (Pain Scale 7-10) Medical Decision Making Medical Decision Making [facility] Narrative: 44yo M with ESRD on HD, COPD, pAF on apixaban, PVD, HTN, DM2, HLD, polysubstance abuse, hx R BKA who was just admitted here 09/21-09/25/24 for respiratory failure requiring intubation and thoracentesis and discharged home, And again admitted on 09/28/2024 for hemodialysis, where he received hemodialysis on 09/28 and again on 09/29 which resolved his shortness for breath and hypoxia. On arrival, oxygen saturation 94% on 2 L nasal cannula. Differential Diagnosis Differential Diagnoses: The differential diagnosis associated with the presentation includes Volume overload, ESRD, acute respiratory failure with hypoxia, COPD exacerbation, pneumonia Admission/Observation Consideration of admission/observation: Escalation of care including admission/observation considered Lab Data [facility] Lab Attestation statement: I reviewed the patient's lab results. 10/09/24 20:38 10/09/24 20:38 Labs: Lab Results 10/03/24 10/03/24 10/03/24 Range/Units 20:30 20:33 20:45 WBC 13.9 H (4.8-10.8) X10*3/uL RBC 3.19 L (4.60-5.80) X10*6/uL Hgb 9.0 L (14.0-18.0) g/dl Hct 30.6 L (42.0-52.0) % MCV 95.9 (80.0-98.0) fL MCH 28.2 (27.0-33.0) pg MCHC 29.4 L (31.0-36.0) g/dl RDW 16.6 H (11.0-16.0) % Plt Count 186 D (160-400) X10*3/uL MPV 11.2 (9.4-12.4) fL Immature Gran % (Auto) 0.5 H (0.0-0.4) % Neut % (Auto) 79.3 H (45-73) % Lymph % (Auto) 13.1 L (20-40) % [place] % (Auto) 5.7 (2-11) % Eos % (Auto) 1.0 (0-4) % Baso % (Auto) 0.4 (0-2) % Lymph # (Auto) 1.8 (1.2-4.9) X10*3/uL [place] # (Auto) 0.8 (0.1-1.2) X10*3/uL Eos # (Auto) 0.1 (0.0-0.4) X10*3/uL Baso # (Auto) 0.1 (0.0-0.2) X10*3/uL Abs Immat Gran (auto) 0.07 H (0.00-0.03) X10*3/uL Absolute Neuts (auto) 11.0 H (2.0-8.3) x10*3/uL Absolute Nucleated RBC 0.000 (0.0-0.012) X10*3/uL Nucleated RBC % (auto) 0.0 (0.0-0.2) /100WBC VBG pH 7.40 (7.32-7.43) VBG pCO2 39 mmHg VBG pO2 168 mmHg VBG HCO3 24 (22-26) mmol/L VBG O2 Saturation 100.0 % VBG Base Excess 0.1 mmol/L Sodium 131 L (135-145) mmol/L Potassium 4.2 (3.3-5.1) mmol/L Chloride 101 (96-108) mmol/L Carbon Dioxide 18 L (22-29) mmol/L Anion Gap 16 (12-20) BUN 43 H (9-16) mg/dL Creatinine 4.51 H* (0.5-1.4) mg/dL Estim Creat Clear Calc 24.9 Estimated GFR 14 Random Glucose 202 H (60-115) mg/dL Lactic Acid 1.1 (0.5-2.0) mmol/L Calcium 8.7 D (8.4-10.2) mg/dL Magnesium 2.5 (1.6-2.6) mg/dL Total Bilirubin 0.3 (0.0-1.0) mg/dL Direct Bilirubin 0.2 (0.0-0.5) mg/dL AST 25 (5-37) U/L ALT 16 (0-40) U/L Alkaline Phosphatase 134 H (39-117) U/L Troponin I High Sens 269.9 H* (<3.5-35.0) ng/L B-Natriuretic Peptide 2416 H (<100) pg/mL Total Protein 7.4 (6.5-8.0) g/dL Albumin 2.6 L (3.5-5.0) g/dL Lipase 9 (8-78) U/L Influenza Type A (PCR) (Negative) Influenza Type B (PCR) (Negative) RSV RNA Qual (PCR) (Negative) SARS-CoV-2 RNA (RT-PCR) (Negative) 10/03/24 Range/Units 21:22 WBC (4.8-10.8) X10*3/uL RBC (4.60-5.80) X10*6/uL Hgb (14.0-18.0) g/dl Hct (42.0-52.0) % MCV (80.0-98.0) fL MCH (27.0-33.0) pg MCHC (31.0-36.0) g/dl RDW (11.0-16.0) % Plt Count (160-400) X10*3/uL MPV (9.4-12.4) fL Immature Gran % (Auto) (0.0-0.4) % Neut % (Auto) (45-73) % Lymph % (Auto) (20-40) % [place] % (Auto) (2-11) % Eos % (Auto) (0-4) % Baso % (Auto) (0-2) % Lymph # (Auto) (1.2-4.9) X10*3/uL [place] # (Auto) (0.1-1.2) X10*3/uL Eos # (Auto) (0.0-0.4) X10*3/uL Baso # (Auto) (0.0-0.2) X10*3/uL Abs Immat Gran (auto) (0.00-0.03) X10*3/uL Absolute Neuts (auto) (2.0-8.3) x10*3/uL Absolute Nucleated RBC (0.0-0.012) X10*3/uL Nucleated RBC % (auto) (0.0-0.2) /100WBC VBG pH (7.32-7.43) VBG pCO2 mmHg VBG pO2 mmHg VBG HCO3 (22-26) mmol/L VBG O2 Saturation % VBG Base Excess mmol/L Sodium (135-145) mmol/L Potassium (3.3-5.1) mmol/L Chloride (96-108) mmol/L Carbon Dioxide (22-29) mmol/L Anion Gap (12-20) BUN (9-16) mg/dL Creatinine (0.5-1.4) mg/dL Estim Creat Clear Calc Estimated GFR Random Glucose (60-115) mg/dL Lactic Acid (0.5-2.0) mmol/L Calcium (8.4-10.2) mg/dL Magnesium (1.6-2.6) mg/dL Total Bilirubin (0.0-1.0) mg/dL Direct Bilirubin (0.0-0.5) mg/dL AST (5-37) U/L ALT (0-40) U/L Alkaline Phosphatase (39-117) U/L Troponin I High Sens (<3.5-35.0) ng/L B-Natriuretic Peptide (<100) pg/mL Total Protein (6.5-8.0) g/dL Albumin (3.5-5.0) g/dL Lipase (8-78) U/L Influenza Type A (PCR) NEGATIVE (Negative) Influenza Type B (PCR) NEGATIVE (Negative) RSV RNA Qual (PCR) NEGATIVE (Negative) SARS-CoV-2 RNA (RT-PCR) NEGATIVE (Negative) Radiology Impression Discussion of test interpretation with radiology: I have reviewed the radiologist's reading. External Record Review External record reviewed: Inpatient record, Office record, Outpatient record, Prior outpatient labs, Prior outpatient radiology, Primary care record and Outside ED record Critical Care Time Critical Care Time Critical Care Time: Yes Total Critical Care Time: 35 Attestation: I have personally provided critical care time exclusive of time spent on separately billable procedures. Time includes review of lab data, radiology results, discussion with consultants, and monitoring for potential decompensation. Intervention performed as documented. Discharge Plan Discharge Clinical Impression: ESRD on dialysis, Acute respiratory failure with hypoxia Patient Disposition: Admitted As Inpatient Interventions: Admission Worksheet (ED) Last Done: 10/04/24 23:02 Discharge Date/Time: 10/05/24 00:10
[2024-10-03 18:18] VITALS: BP 126/61; PULSE 77; RESP 20; TEMP 36.8; O2SAT 94; BMI 35.5
--- NOTE | 2024-10-03 18:20 | ECG_ITS ---
Test Reason : SOB Blood Pressure : / mmHG Vent. Rate : 078 BPM Atrial Rate : 078 BPM P-R Int : 184 ms QRS Dur : 102 ms QT Int : 352 ms P-R-T Axes : 055 044 080 degrees QTc Int : 401 ms Normal sinus rhythm Nonspecific T wave abnormality Abnormal ECG When compared with ECG of 28-SEP-2024 07:35, QT has shortened Referred By: Raquel Gonzalez Electronically Signed By:Fabio Whitten
--- NOTE | 2024-10-03 19:51 | PC.NURSE ---
Patient is a difficult phlebotomy stick. 2 attempts by this RN, 2 attempts by Shanelle (cnp). Jael (cnp) at bedside at this time attempting to obtain labs. Pt has 20g IV access in left forearm, which is patent and flushes, but without blood return. Phlebotomy department notified about difficult draw.
--- NOTE | 2024-10-03 20:27 | PC.NURSE ---
Patient's mother (May) called requesting update. Verbal consent given by Deandre to speak with May. Aware that labs are in progress, scale balancer is at bedside attempting to obtain labs. Once imaging & lab results are reviewed, disposition will be known. May's callback # is [phone]. May thankful for update.
[2024-10-03 20:38] LABS: VBG Base Excess 0.1 mmol/L; VBG HCO3 24 mmol/L (22-26); VBG pCO2 39 mmHg; VBG pO2 168 mmHg
[2024-10-03 20:39] LABS: Venous Blood Gas Refer to POC result
[2024-10-03 20:55] LABS: Basophils Absolute Auto 0.1 X10*3/uL (0.0-0.2); Basophils Percent Auto 0.4 % (0-2); Eosinophils Absolute Auto 0.1 X10*3/uL (0.0-0.4); Hematocrit 30.6 % (42.0-52.0); Imm Gran Abs Auto 0.07 X10*3/uL (0.00-0.03); Imm Gran Pct Auto 0.5 % (0.0-0.4); Lymphocytes Absolute Auto 1.8 X10*3/uL (1.2-4.9); Lymphocytes Percent Auto 13.1 % (20-40); MANUAL DIFF FLAG NO; Mean Corpuscular HGB Conc 29.4 g/dl (31.0-36.0); Mean Corpuscular Hemoglobin 28.2 pg (27.0-33.0); Mean Corpuscular Volume 95.9 fL (80.0-98.0); Mean Platelet Volume 11.2 fL (9.4-12.4); Monocytes Absolute Auto 0.8 X10*3/uL (0.1-1.2); Monocytes Percent Auto 5.7 % (2-11); Neutrophils Percent Auto 79.3 % (45-73); Platelet Count 186 X10*3/uL (160-400); Red Blood Count 3.19 X10*6/uL (4.60-5.80); Red Cell Distribution Width 16.6 % (11.0-16.0); White Blood Count 13.9 X10*3/uL (4.8-10.8)
[2024-10-03 20:58] LABS: Lactic Acid 1.1 mmol/L (0.5-2.0)
[2024-10-03 21:16] VITALS: BP 103/53; PULSE 78; RESP 16; TEMP 36.6; O2SAT 95
[2024-10-03 21:27] LABS: Troponin-I High Sensitivity 269.9 ng/L (<3.5-35.0)
[2024-10-03 21:28] LABS: Alanine Aminotransferase 16 U/L (0-40); Albumin Level 2.6 g/dL (3.5-5.0); Alkaline Phosphatase 134 U/L (39-117); Anion Gap 16 (12-20); Aspartate Amino Transferase 25 U/L (5-37); Bilirubin Direct 0.2 mg/dL (0.0-0.5); Bilirubin Total 0.3 mg/dL (0.0-1.0); Blood Urea Nitrogen 43 mg/dL (9-16); Calcium 8.7 mg/dL (8.4-10.2); Carbon Dioxide 18 mmol/L (22-29); Chloride 101 mmol/L (96-108); Creatinine Clr Calc Pharmacy 24.9; Estimated Glomerular Filt Rate 14; Glucose Random 202 mg/dL (60-115); Lipase 9 U/L (8-78); Magnesium 2.5 mg/dL (1.6-2.6); Potassium 4.2 mmol/L (3.3-5.1); Sodium 131 mmol/L (135-145); Total Protein 7.4 g/dL (6.5-8.0)
[2024-10-03 21:47] LABS: B Type Natriuretic Peptide 2416 pg/mL (<100)
--- NOTE | 2024-10-03 21:55 | PC.NURSE ---
LEDY Gonzalez at bedside speaking with the patient at this time.
[2024-10-03 22:05] LABS: Influenza A PCR NEGATIVE (Negative); Influenza B PCR NEGATIVE (Negative); Resp Syncy Virus RNA Qual PCR NEGATIVE (Negative); SARS COV2 PCR INHOUSE NEGATIVE (Negative)
[2024-10-04] VITALS (10 sets, daily range): BP systolic 103–139; BP diastolic 48–72; PULSE 78–111; RESP 14–20; TEMP 36.4–39.7; O2SAT 90–97
--- NOTE | 2024-10-04 00:09 | PM.IMHP ---
History of Present Illness Date of Service: 10/04/24 Attending physician on admission: Lali Franks Chief Complaint: Shortness on breath Deandre Luong is a 44 years old man with past medical history significant for ESRD on HD (MWF), essential hypertension, hyperlipidemia, PVD, s/p right BKA, type 2 diabetes mellitus and drug abuse on Suboxone presents to the emergency department complaining of shortness on breath and cough. He did not report any chest pain. Did not report any headache, nausea, vomiting, abdominal pain or diarrhea. There is no fevers or chills reported. Patient was recently hospitalized due to respiratory failure requiring intubation and thoracentesis. He denied ongoing illicit drug use or alcohol abuse. He is a tobacco smoker. In the ED, he was found to have stable vital signs. He is currently requiring 2 L/min supplemental oxygen via nasal cannula which is his baseline. Blood workup showed leukocytosis of 13.9, hemoglobin and platelets are baseline. Creatinine is 4.51 and BUN 43. There are no significant electrolyte imbalances. Troponin is 269.9 and BNP is 2416. Viral testing for COVID-19, influenza and RSV is negative. CXR showed low lung volumes, large left pleural effusion and probable small right pleural effusion. ED tx: None. Review of Systems Review of Systems: All 12 systems were reviewed and normal except as noted in HPI. [facility] Medical History (Updated 10/04/24 @ 00:32 by Lali Franks MD) Volume overload Opioid use disorder, severe, dependence Paroxysmal atrial flutter Cardiomyopathy Pericardial effusion Atrial flutter Need for acute hemodialysis Leukocytosis Anemia Anemia Transfusion history Atrial flutter, paroxysmal COPD (chronic obstructive pulmonary disease) Constipation Callus of foot Seizure Polysubstance abuse CKD (chronic kidney disease) stage 3, GFR 30-59 ml/min Foot osteomyelitis, left Amputation of toe of right foot Diabetic ulcer of right foot Hyperglycemia due to type 2 diabetes mellitus Renal failure Sleep apnea Diabetes HTN (hypertension) Surgical History Hx of right BKA History of surgical procedure (~04/24/23) Social History Household Members: Family Household Members Other:: mother Housing: Apartment Do you presently have visiting nurse or other home services: Yes (was intended to have visiting nurses on last discharge) Unable to assess alcohol history related to: Unable to respond Alcohol intake: former Comment: bilateral wrist restraints/propofol drip for airway safety Patient Tobacco Use Status: Current everyday Tobacco user Tobacco use type: Cigarette Cigarette Packs Per Day: 0.5 Cigarettes Per Day: 10.0 Years Smoked: 33 e-Cigarette/Vaping Use: Currently Using Second Hand Smoke Exposure: Yes Substance Use Type: Crack/Cocaine, Heroin, Marijuana and Opiates Advance Directives: No Advance Directives Information Provided: No Do you have a plan to hurt others: No Plan service: No Meds Allergies Allergy/AdvReac Type Severity Reaction Status Date / Time No Known Allergies Allergy Verified 10/03/24 18:21 [No Known Allergies*] Active Medications: Current Medications Acetaminophen (Acetaminophen 325 Mg Tablet) 975 mg PO Q6H PRN PRN Reason: Pain, Mild (Pain Scale 1-3), fever or headache Furosemide (Furosemide 100 Mg/10 Ml Vial) 60 mg IVPUSH ONCE STA; Protocol Stop: 10/04/24 00:05 Sodium Chloride (0.9 % Sodium Chloride Flush 3 Ml Syringe) 3 ml IVFLUSH QSHIFT [facility] Home Medications ?Medication ?Instructions ?Recorded ?Confirmed ?Last Taken ?Type insulin glargine 100 unit/mL (3 10 unit subcut DAILY 09/28/24 09/28/24 09/27/24 History mL) subcutaneous pen insulin lispro 100 unit/mL See Protocol subcut TIDAC 09/28/24 09/28/24 09/27/24 History subcutaneous pen (Humalog KwikPen (U-100) Insulin) melatonin 5 mg tablet 5 mg PO BEDTIME PRN insomnia 09/28/24 09/28/24 Unknown History Physical Exam Vital Signs and Narrative: Vital Signs: Last Vital Signs Temp 98 F 10/03/24 21:16 Pulse 78 10/03/24 21:16 Resp 16 10/03/24 21:16 BP 103/53 L 10/03/24 21:16 Pulse Ox 95 10/03/24 21:16 O2 Del Method Nasal Cannula 10/03/24 21:16 O2 Flow Rate 2 10/03/24 21:16 Oxygen Flow Rate 2 10/03/24 18:18 BMI result Body Mass Index 35.5 Constitutional - Awake and Alert, No apparent distress HEENT - PER, EOMI Heart - RRR, No murmurs. Lungs - Normal lung expansion, Normal respiratory effort, No respiratory distress. Left lung: Decreased breath sound (mid lung). Right lung: Normal. No wheezing or rhonchi. Abdomen - NT / ND; +BS; No rebound or guarding - No CVA tenderness Extremities - Right BKA. Skin - Warm/Dry. No pallor. No jaundice. Neurological - Alert & oriented x3. No focal weakness grossly noted. Normal speech. Psychological - Appropriate affect Results Labs 10/03/24 20:45 10/03/24 20:45 Labs: Laboratory Results - last 24 hr 10/03/24 10/03/24 10/03/24 20:30 20:33 20:45 MCV 95.9 MCH 28.2 MCHC 29.4 L RDW 16.6 H Plt Count 186 D MPV 11.2 Immature Gran % (Auto) 0.5 H Neut % (Auto) 79.3 H Lymph % (Auto) 13.1 L [place] % (Auto) 5.7 Eos % (Auto) 1.0 Baso % (Auto) 0.4 Lymph # (Auto) 1.8 [place] # (Auto) 0.8 Eos # (Auto) 0.1 Baso # (Auto) 0.1 Abs Immat Gran (auto) 0.07 H Absolute Neuts (auto) 11.0 H Absolute Nucleated RBC 0.000 Nucleated RBC % (auto) 0.0 VBG pH 7.40 VBG pCO2 39 VBG pO2 168 VBG HCO3 24 VBG O2 Saturation 100.0 VBG Base Excess 0.1 Anion Gap 16 Estim Creat Clear Calc 24.9 Estimated GFR 14 Random Glucose 202 H Lactic Acid 1.1 Calcium 8.7 D Magnesium 2.5 Total Bilirubin 0.3 Direct Bilirubin 0.2 AST 25 ALT 16 Alkaline Phosphatase 134 H Troponin I High Sens 269.9 H* B-Natriuretic Peptide 2416 H Total Protein 7.4 Albumin 2.6 L Lipase 9 Influenza Type A (PCR) Influenza Type B (PCR) RSV RNA Qual (PCR) SARS-CoV-2 RNA (RT-PCR) 10/03/24 21:22 MCV MCH MCHC RDW Plt Count MPV Immature Gran % (Auto) Neut % (Auto) Lymph % (Auto) [place] % (Auto) Eos % (Auto) Baso % (Auto) Lymph # (Auto) [place] # (Auto) Eos # (Auto) Baso # (Auto) Abs Immat Gran (auto) Absolute Neuts (auto) Absolute Nucleated RBC Nucleated RBC % (auto) VBG pH VBG pCO2 VBG pO2 VBG HCO3 VBG O2 Saturation VBG Base Excess Anion Gap Estim Creat Clear Calc Estimated GFR Random Glucose Lactic Acid Calcium Magnesium Total Bilirubin Direct Bilirubin AST ALT Alkaline Phosphatase Troponin I High Sens B-Natriuretic Peptide Total Protein Albumin Lipase Influenza Type A (PCR) NEGATIVE Influenza Type B (PCR) NEGATIVE RSV RNA Qual (PCR) NEGATIVE SARS-CoV-2 RNA (RT-PCR) NEGATIVE Imaging Radiologist's Impressions: Impressions Chest X-Ray 10/03/24 18:19 IMPRESSION: 1. Low lung volumes. 2. Large volume left pleural effusion. Probable consolidation atelectasis at left lung base. 3. Probable small right pleural effusion. Electronically signed by: Gibran Melgar MD 10/03/2024 08:27 PM [facility] [place] and Plan (1) Volume overload: Qualifiers: Hypervolemia type: unspecified Qualified Code(s): E87.70 - Fluid overload, unspecified Status: Acute (2) Pleural effusion, left: Status: Acute Plan Deandre Luong is a 44 y/o man with past medical history significant for ESRD on HD (MW) admitted with: Shortness on breath, multifactorial: Fluid overload secondary to end-stage renal disease + large left pleural effusion. Admit to hospitalist service. Pulse oximetry. Supplemental oxygen to keep O2 sats > 90%. Lasix 60 mg IV x1. Renal diet. Nephrology consult for urgent HD. IR consult for left thoracentesis. Paroxysmal atrial flutter. Eliquis on hold for possible thoracentesis. Continue amiodarone and metoprolol. Elevated troponin, chronic. No chest pain. Likely secondary to end-stage renal disease. History of drug abuse. Continue Suboxone. Type 2 diabetes mellitus. BG checks before meals at bedtime. Insulin sliding scale and Lantus. Diabetic diet Hyperlipidemia. Continue atorvastatin. Right BKA. DVT prophylaxis: Eliquis Code status: Full Patient will need hospitalization for at least 2 midnights for fluid over the left pleural effusion evaluation management with urgent hemodialysis and thoracentesis. Quality Stroke Does the patient have a stroke diagnosis?: No VTE Prior VTE?: No VTE Risk Level:: Medical - moderate - high VTE Device Contraindication: Treatment Not Indicated VTE Drug Contraindication: N/A - Med Ordered
[2024-10-04] MEDS: Furosemide 100 MG/10 ML VIAL 60 MG IVPUSH (00:25)
--- NOTE | 2024-10-04 01:48 | PC.NURSE ---
Addendum entered by Shirley Carias 10/04/24 01:54: Medication list to be faxed to [facility] [place] [facility] fax machine. Original Note: Called [facility] to review medication list. Patient is requesting Oxycodone, but per Anita Margarita, last time he picked up Oxycodone was January 2024. Patient was sleeping just prior to this and talking in his sleep. During conversations, Deandre appears drowsy. He is responsive to verbal stimuli, but falls asleep easily. Patient voided in urinal. Specimen sent for analysis. Awaiting CC results.
[2024-10-04 01:51] LABS: Appearance Urine Clear; Color Urine Yellow; Glucose Urine UA 500 mg/dL (Negative); Leukocyte Esterase Urine Small (1+) (Negative); Nitrite Urine Negative (Negative); PH 5.5 (5.0-9.0); UMIC TRIGGER UACC YES; Urine Blood Negative (Negative); Urine Ketones Negative (Negative); Urine Protein >=1000 (4+) mg/dL (Neg-Trace)
[2024-10-04 01:56] LABS: Bacteria Urine Trace (None Seen); Hyaline Casts Urine 0-2 /LPF (0-2); RBC Urine 0-2 /HPF (0-2); UACC Culture Trigger YES
[2024-10-04 05:01] LABS: Basophils Percent Auto 0.3 % (0-2); Eosinophils Absolute Auto 0.3 X10*3/uL (0.0-0.4); Eosinophils Percent Auto 1.8 % (0-4); Hematocrit 28.6 % (42.0-52.0); Hemoglobin 8.7 g/dl (14.0-18.0); Imm Gran Abs Auto 0.06 X10*3/uL (0.00-0.03); Imm Gran Pct Auto 0.4 % (0.0-0.4); Lymphocytes Absolute Auto 2.1 X10*3/uL (1.2-4.9); Lymphocytes Percent Auto 14.5 % (20-40); MANUAL DIFF FLAG NO; Mean Corpuscular HGB Conc 30.4 g/dl (31.0-36.0); Mean Corpuscular Hemoglobin 28.5 pg (27.0-33.0); Mean Corpuscular Volume 93.8 fL (80.0-98.0); Mean Platelet Volume 10.1 fL (9.4-12.4); Monocytes Absolute Auto 0.9 X10*3/uL (0.1-1.2); Monocytes Percent Auto 5.9 % (2-11); Neutrophils Absolute Auto 11.2 x10*3/uL (2.0-8.3); Neutrophils Percent Auto 77.1 % (45-73); Platelet Count 268 X10*3/uL (160-400); Red Blood Count 3.05 X10*6/uL (4.60-5.80); Red Cell Distribution Width 16.6 % (11.0-16.0); White Blood Count 14.5 X10*3/uL (4.8-10.8)
[2024-10-04 05:19] LABS: Alanine Aminotransferase 7 U/L (0-40); Albumin Level 2.7 g/dL (3.5-5.0); Alkaline Phosphatase 124 U/L (39-117); Anion Gap 15 (12-20); Aspartate Amino Transferase 19 U/L (5-37); Bilirubin Total 0.3 mg/dL (0.0-1.0); Blood Urea Nitrogen 46 mg/dL (9-16); Calcium 8.3 mg/dL (8.4-10.2); Carbon Dioxide 25 mmol/L (22-29); Chloride 99 mmol/L (96-108); Creatinine Clr Calc Pharmacy 23.3; Estimated Glomerular Filt Rate 13; Glucose Random 182 mg/dL (60-115); Magnesium 2.1 mg/dL (1.6-2.6); Phosphorus 5.4 mg/dL (2.7-4.5); Potassium 3.8 mmol/L (3.3-5.1); Sodium 135 mmol/L (135-145); Total Protein 6.6 g/dL (6.5-8.0)
--- NOTE | 2024-10-04 07:51 | PC.NURSE ---
Addendum entered by Carla Gutiérrez 10/04/24 08:13: patient taken off oxymask, placed back on 2L nasal cannula. awake and eating breakfast, awaiting dialysis Original Note: patient found in room w/ oxygen off, 83% on room air. placed on oxymask 3L - now 97%. alert and oriented x4. IV found in bed, attempted to re-insert IV x2 w/out success.
[2024-10-04 07:52] LABS: Glucose, Whole Blood 157 mg/dL (60-115)
--- NOTE | 2024-10-04 08:38 | PC.NURSE ---
new IV placed 20g Left forearm
--- NOTE | 2024-10-04 09:09 | P.CONNP_ITS ---
History of Present Illness Reason for Consult Consult date: 10/04/24 Chief Complaint Chief complaint: Left Pleural Effusion, Fluid Overload History of Present Illness Narrative: 44 y/o male with a medical history of ESRD on HD, HTN, HLD, polysubstance dependence, PVD. 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 Recurrent hospitalizations since August. Now ESRD pt 2/2 diabetic nephropathy/progression of underlying disease in addition to cocaine-induced nephropathy presented 10/03 evening with dyspnea x1 days he received last HD session Friday, 10/01 (receives M, W, F at [facility]). CXR shows large left pleural effusion, small right pleural effusion reports he is drinking very little fluid compared to what he used to prior to HD reports he drinks less than a liter of fluid daily, minimizing salt intake he states his breathing is comfortable now- he is on 2L NC states other than breathing he is feeling well denies chest pain, abdominal pain, flank pain denies tremors, twitching/abnormal movements denies itching, nausea, vomiting states he continues to urinate and denies pain/difficulty urinating, states UOP has decreased but still voiding (none yesterday, ~6 ounce cup of urine this a.m.) Review of Systems Constitutional: Reports fatigue and Denies headache(s) Denies dizziness and Denies headache(s) Cardiovascular: Denies chest pain, Reports leg edema, Denies lightheadedness and Reports dyspnea Respiratory: Denies cough and Reports dyspnea Gastrointestinal: Denies abdominal pain, Denies constipation, Denies diarrhea, Denies nausea and Denies vomiting Genitourinary: Denies hematuria, Reports oliguria, Denies difficulty urinating, Denies dysuria, Denies flank pain and Denies urinary incontinence Musculoskeletal: Denies back pain and Denies arthralgias Skin/Breast: Denies rash Denies dizziness and Denies headache(s) Endocrine: Reports fatigue PMFSH Past Medical History Medical History (Updated 10/04/24 @ 00:32 by Lali Franks MD) Volume overload Opioid use disorder, severe, dependence Paroxysmal atrial flutter Cardiomyopathy Pericardial effusion Atrial flutter Need for acute hemodialysis Leukocytosis Anemia Anemia Transfusion history Atrial flutter, paroxysmal COPD (chronic obstructive pulmonary disease) Constipation Callus of foot Seizure Polysubstance abuse CKD (chronic kidney disease) stage 3, GFR 30-59 ml/min Foot osteomyelitis, left Amputation of toe of right foot Diabetic ulcer of right foot Hyperglycemia due to type 2 diabetes mellitus Renal failure Sleep apnea Diabetes HTN (hypertension) Surgical History Surgical History Hx of right BKA History of surgical procedure (~04/24/23) Social History Social History Household Members: Family Household Members Other:: mother Housing: Apartment Do you presently have visiting nurse or other home services: Yes (was intended to have visiting nurses on last discharge) Unable to assess alcohol history related to: Unable to respond Alcohol intake: former Comment: bilateral wrist restraints/propofol drip for airway safety Patient Tobacco Use Status: Current everyday Tobacco user Tobacco use type: Cigarette Cigarette Packs Per Day: 0.5 Cigarettes Per Day: 10.0 Years Smoked: 33 e-Cigarette/Vaping Use: Currently Using Second Hand Smoke Exposure: Yes Substance Use Type: Crack/Cocaine, Heroin, Marijuana and Opiates Advance Directives: No Advance Directives Information Provided: No Do you have a plan to hurt others: No Plan Nutrition Risks: Diabetes new onset/Uncontrolled service: No Meds Allergies Allergy/AdvReac Type Severity Reaction Status Date / Time No Known Allergies Allergy Verified 10/03/24 18:21 [No Known Allergies*] Active Medications: Current Medications Acetaminophen (Acetaminophen 325 Mg Tablet) 975 mg PO Q6H PRN PRN Reason: Pain, Mild (Pain Scale 1-3), fever or headache Glucose (Glucose Gel 15 Gm Gel..Gram.) 15 gm PO Q15M PRN; Protocol PRN Reason: per Hypoglycemia Standing Ord. Dextrose (D10) 250 mls @ 750 mls/hr IV Q15M PRN; Protocol PRN Reason: per Hypoglycemia Standing Ord. Insulin Human Lispro (Insulin Lispro 100 Unit/Ml 3 Ml Vial) 0 unit SUBCUT QIDAS [facility]; Protocol Last Admin: 10/04/24 07:54 Dose: Not Given Sodium Chloride (0.9 % Sodium Chloride Flush 3 Ml Syringe) 3 [facility] Home Medications ?Medication ?Instructions ?Recorded ?Confirmed ?Last Taken ?Type insulin glargine 100 unit/mL (3 10 unit subcut DAILY 09/28/24 09/28/24 09/27/24 History mL) subcutaneous pen insulin lispro 100 unit/mL See Protocol subcut TIDAC 09/28/24 09/28/24 09/27/24 History subcutaneous pen (Humalog KwikPen (U-100) Insulin) melatonin 5 mg tablet 5 mg PO BEDTIME PRN insomnia 09/28/24 09/28/24 Unknown History Physical Exam Vital Signs: Last Vital Signs Temp 97.6 F 10/04/24 08:13 Pulse 82 10/04/24 08:13 Resp 14 10/04/24 08:13 BP 126/57 L 10/04/24 08:13 Pulse Ox 94 10/04/24 08:13 O2 Del Method Nasal Cannula 10/04/24 08:13 O2 Flow Rate 2 10/04/24 08:13 Oxygen Flow Rate 2 10/03/24 18:18 BMI result Body Mass Index 35.5 Const General: no acute distress, alert and awake Neck Neck: Yes no JVD Resp Effort & Inspection: normal respiratory effort and able to speak in complete sentences Auscultation: crackles and rhonchi Cardio Jugular venous distension: no JVD Rate: regular rate Rhythm: regular rhythm Heart sounds: S1 normal heart sound present and S2 normal heart sound present GI Other: pitting edema across lower abdomen Palpation (GI): Soft to palpation and nontender Extrem General: Yes edema (bilateral lower extremity edema- thighs, pitting) Results Lab Results 10/04/24 04:54 10/04/24 04:55 Lab results: Chemistry 10/03/24 10/04/24 20:45 04:55 Sodium 131 L 135 Potassium 4.2 3.8 Carbon Dioxide 18 L 25 BUN 43 H 46 H Creatinine 4.51 H* 4.80 H* Calcium 8.7 D 8.3 L Phosphorus 5.4 H Hematology 10/03/24 10/04/24 20:45 04:54 WBC 13.9 H 14.5 H Hgb 9.0 L 8.7 L Plt Count 186 D 268 D Urinalysis 10/04/24 01:45 Urine Color Yellow Urine Appearance Clear Urine pH 5.5 Ur Specific [place] 1.020 Urine Protein >=1000 (4+) H Urine Glucose (UA) 500 H Urine Ketones Negative Urine Blood Negative Urine Nitrite Negative Ur Leukocyte Esterase Small (1+) H Urine RBC 0-2 Urine WBC 11-20 H Ur Squamous Epith Cells 3-5 Hyaline Casts 0-2 Assessment and Plan (1) ESRD on dialysis: Status: Acute (2) Volume overload: Qualifiers: Hypervolemia type: unspecified Qualified Code(s): E87.70 - Fluid overload, unspecified Status: Acute (3) Pleural effusion, left: Status: Acute Plan Pt with ESRD 2/2 natural progression of CKD 2/2 diabetic nephropathy and cocaine-induced nephropathy. patient has permacath (right IJ) in place without erythema, dressing intact H&H 8.7 & 28.6, procrit administered 10,000 units 09/28, will administer again today potassium within normal limits Calcium 8.3, 09/23 PTH 123, calcitriol 0.25mg daily Phosphorous 5.4 10/04, will continue to monitor no metabolic acidosis present at this time patient remains fluid-overloaded, will remove 4-5L as tolerated with HD today discussed with patient today the importance of fluid restriction to minimize interdialytic weight gain, should restrict fluids to less than 1.5L a day, this will help prevent readmissions and fluid overload/difficulty breathing pt ok for discharge from renal standpoint, will continue to follow as inpatient Discussed with Dr Yañez. Procedures Date of Service Date of Service: 10/04/24
--- NOTE | 2024-10-04 09:52 | PHA.MEDREC ---
Pharmacy Consult ? Medication Reconciliation Pharmacy has completed the medication reconciliation. Patient was unresponsive, used patients discharged package from 09/29/24
--- NOTE | 2024-10-04 10:15 | PM.EVENT ---
Event Note Date of Service: 10/04/24 Event Note: 44 y/o man with past medical history significant for ESRD on HD (MWF) here with sob and found to have fluid overload and large left fluid overload Shortness on breath, multifactorial: Fluid overload secondary to end-stage renal disease + large left pleural effusion. Admit to hospitalist service. Pulse oximetry. Supplemental oxygen to keep O2 sats > 90%. Lasix 60 mg IV x1. Renal diet. Nephrology consult for urgent HD. IR consult for left thoracentesis. Paroxysmal atrial flutter. Continue amiodarone and metoprolol. Eliquis Elevated troponin, chronic. No chest pain. Likely secondary to end-stage renal disease. History of drug abuse. Continue Suboxone. Type 2 diabetes mellitus. BG checks before meals at bedtime. Insulin sliding scale and Lantus. Diabetic diet Hyperlipidemia. Continue atorvastatin. Right BKA. DVT prophylaxis: Eliquis Code status: Ophthalmic Surgical Assistant Spent With Patient Time: Total time managing care of this patient today ____ minutes.
--- NOTE | 2024-10-04 11:56 | PC.NURSE ---
patient remains off unit at dialysis
[2024-10-04 13:55] LABS: Glucose, Whole Blood 174 mg/dL (60-115)
--- NOTE | 2024-10-04 14:58 | PC.NURSE ---
patient back from dialysis, attempted to go to IR for procedure, stating that he was unable to stay awake/sit upright. patient in room conversing on and off with mother. patient repositioned in bed, pillow provided for comfort. sips of water given, patient tolerating well. able to wake up and answer questions, promptly falls back to sleep.
--- NOTE | 2024-10-04 15:14 | MHC.CM.PN ---
Pt lives at home with his mother/HCP. Pt is active with [facility] health services, goes to [facility] for HD on Mon/Wed/Fri. Pt will transport home via BLS. PCP: Dr. Cristina Stover
[2024-10-04] MEDS: oxyCODONE HCl Immed Release 5 MG TABLET PO (15:23)
[2024-10-04] MEDS: Buprenorphine/Naloxone 8/2 mg FILM 1 FILM SUBLINGUAL (15:24)
--- NOTE | 2024-10-04 15:28 | PC.NURSE ---
patient more alert at this time, able to drink water w/out incident. provided with food and drink. conversing with mother at bedside
--- NOTE | 2024-10-04 16:07 | PC.NURSE ---
plan for thoracentesis tomorrow, patient playing video games in room
[2024-10-04 18:35] LABS: Glucose, Whole Blood 141 mg/dL (60-115)
--- NOTE | 2024-10-04 18:43 | PC.NURSE ---
patient crying out in room it hurts it hurts offered to reposition patient, patient stating leave me as I am .
--- NOTE | 2024-10-04 19:36 | PC.NURSE ---
Notified of elevated temp orally of 102.8
--- NOTE | 2024-10-04 19:46 | PC.NURSE ---
New orders obtained due to fever for cultures, lactic acid and antibiotics.
[2024-10-04] MEDS: Acetaminophen Supp 650 MG SUPP.RECT PR (20:13)
[2024-10-04 20:16] LABS: Basophils Absolute Auto 0.1 X10*3/uL (0.0-0.2); Basophils Percent Auto 0.3 % (0-2); Eosinophils Absolute Auto 0.2 X10*3/uL (0.0-0.4); Hematocrit 30.8 % (42.0-52.0); Hemoglobin 9.3 g/dl (14.0-18.0); Imm Gran Abs Auto 0.11 X10*3/uL (0.00-0.03); Imm Gran Pct Auto 0.6 % (0.0-0.4); Lymphocytes Percent Auto 5.1 % (20-40); MANUAL DIFF FLAG NO; Mean Corpuscular HGB Conc 30.2 g/dl (31.0-36.0); Mean Corpuscular Hemoglobin 28.1 pg (27.0-33.0); Mean Corpuscular Volume 93.1 fL (80.0-98.0); Mean Platelet Volume 10.1 fL (9.4-12.4); Monocytes Absolute Auto 0.8 X10*3/uL (0.1-1.2); Monocytes Percent Auto 3.9 % (2-11); Neutrophils Absolute Auto 17.5 x10*3/uL (2.0-8.3); Neutrophils Percent Auto 89.1 % (45-73); Platelet Count 270 X10*3/uL (160-400); Red Blood Count 3.31 X10*6/uL (4.60-5.80); White Blood Count 19.6 X10*3/uL (4.8-10.8)
[2024-10-04] MEDS: Piperacillin Sodium/Tazobactam 2.25 GM in 0.9 % Sodium Chloride 50 ML IV (20:18)
[2024-10-04 20:21] LABS: VBG Base Excess 0.9 mmol/L; VBG HCO3 25 mmol/L (22-26); VBG pCO2 39 mmHg; VBG pH 7.41 (7.32-7.43); VBG pO2 101 mmHg
[2024-10-04 20:23] LABS: Venous Blood Gas Refer to POC result
[2024-10-04 20:33] LABS: Ammonia 50 umol/L (13-55)
[2024-10-04 20:34] LABS: Alanine Aminotransferase 10 U/L (0-40); Albumin Level 2.9 g/dL (3.5-5.0); Alkaline Phosphatase 123 U/L (39-117); Anion Gap 9 (12-20); Aspartate Amino Transferase 24 U/L (5-37); Bilirubin Total 0.4 mg/dL (0.0-1.0); Blood Urea Nitrogen 27 mg/dL (9-16); Calcium 8.2 mg/dL (8.4-10.2); Carbon Dioxide 26 mmol/L (22-29); Chloride 101 mmol/L (96-108); Creatinine Clr Calc Pharmacy 33.8; Estimated Glomerular Filt Rate 20; Glucose Random 150 mg/dL (60-115); Lactic Acid 0.9 mmol/L (0.5-2.0); Potassium 4.3 mmol/L (3.3-5.1); Sodium 132 mmol/L (135-145); Total Protein 7.1 g/dL (6.5-8.0)
[2024-10-04] MEDS: 0.9 % Sodium Chloride 1,000 ML 125 ML IVCONT (21:02)
[2024-10-04] MEDS: vancomycin/NS 2,000 MG/500 ML PLAST..BAG 250 MG IV (21:03)
[2024-10-04 21:58] LABS: Glucose, Whole Blood 200 mg/dL (60-115)
[2024-10-04] MEDS: Insulin Lispro 100 UNIT/ML 3 ML VIAL SUBCUT (22:18)
[2024-10-05] VITALS (16 sets, daily range): BP systolic 90–121; BP diastolic 48–66; PULSE 87–110; RESP 15–23; TEMP 36.3–39.5; O2SAT 92–99; BMI 34.1
[2024-10-05] MEDS: Albumin Human 25 % 100 ML IV (00:57)
[2024-10-05] MEDS: 0.9 % Sodium Chloride Flush 3 ML SYRINGE IVFLUSH ×2 (00:59→10:51)
[2024-10-05] MEDS: Piperacillin Sodium/Tazobactam 2.25 GM in 0.9 % Sodium Chloride 50 ML IV (04:50)
[2024-10-05 07:00] LABS: Hematocrit 26.7 % (42.0-52.0); Hemoglobin 7.9 g/dl (14.0-18.0); Mean Corpuscular HGB Conc 29.6 g/dl (31.0-36.0); Mean Corpuscular Hemoglobin 28.1 pg (27.0-33.0); Mean Platelet Volume 10.4 fL (9.4-12.4); Platelet Count 200 X10*3/uL (160-400); Red Blood Count 2.81 X10*6/uL (4.60-5.80); Red Cell Distribution Width 16.9 % (11.0-16.0)
[2024-10-05 07:17] LABS: Anion Gap 13 (12-20); Blood Urea Nitrogen 33 mg/dL (9-16); Calcium 8.1 mg/dL (8.4-10.2); Carbon Dioxide 22 mmol/L (22-29); Chloride 102 mmol/L (96-108); Creatinine Clr Calc Pharmacy 28.7; Estimated Glomerular Filt Rate 17; Glucose Random 102 mg/dL (60-115); Sodium 133 mmol/L (135-145)
[2024-10-05 07:26] LABS: White Blood Count 32.6 X10*3/uL (4.8-10.8)
[2024-10-05 07:30] LABS: Glucose, Whole Blood 96 mg/dL (60-115)
--- NOTE | 2024-10-05 08:25 | PM.PNNEP ---
Subjective Subjective Date of Service: 10/05/24 Interval history: 44 y/o male with a medical history of ESRD on HD, HTN, HLD, polysubstance dependence, PVD. 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 Recurrent hospitalizations since August. Now ESRD pt 2/2 diabetic nephropathy/progression of underlying disease in addition to cocaine-induced nephropathy presented 10/03 evening with dyspnea x1 days he received last HD session Friday, 10/01 (receives M, W, F at [facility]). Per HD RN pt has been drinking significant fluid during outpatient HD sessions. CXR 10/03 large left pleural effusion, small right pleural effusion reports he is drinking very little fluid compared to what he used to prior to HD reports he drinks less than a liter of fluid daily and is minimizing salt intake he states his breathing is comfortable now- he is on cpap this a.m. denies chest pain, abdominal pain, flank pain denies tremors, twitching/abnormal movements denies itching, nausea, vomiting states he continues to urinate intermittently and denies pain/difficulty urinating, no UOP in last 24 hours Physical Exam Vital Signs: Vital Signs: Last Vital Signs Temp 98.8 F 10/05/24 07:45 Pulse 99 10/05/24 09:33 Resp 18 10/05/24 09:33 BP 121/49 L 10/05/24 09:33 Pulse Ox 92 10/05/24 09:33 O2 Del Method Nasal Cannula 10/05/24 09:33 O2 Flow Rate 3 10/05/24 09:33 Oxygen Flow Rate 2 10/03/24 18:18 BMI result Body Mass Index 34.1 Const: General: no acute distress, alert and awake Neck: Neck: Yes no JVD Resp: Effort & Inspection: normal respiratory effort and able to speak in complete sentences Auscultation: rhonchi Cardio: Jugular venous distension: no JVD Rate: regular rate Rhythm: regular rhythm Heart sounds: S1 normal heart sound present and S2 normal heart sound present GI: Other: pitting edema across lower abdomen Palpation (GI): Soft to palpation and nontender Extrem: General: Yes edema (bilateral lower extremity edema- thighs, pitting) Objective Data Labs 10/05/24 06:19 10/05/24 06:19 Labs: Laboratory Results - last 24 hr 10/04/24 10/04/24 10/04/24 13:50 18:31 20:07 WBC 19.6 H RBC 3.31 L Hgb 9.3 L Hct 30.8 L MCV 93.1 MCH 28.1 MCHC 30.2 L RDW 17.0 H Plt Count 270 MPV 10.1 Immature Gran % (Auto) 0.6 H Neut % (Auto) 89.1 H Lymph % (Auto) 5.1 L [place] % (Auto) 3.9 Eos % (Auto) 1.0 Baso % (Auto) 0.3 Lymph # (Auto) 1.0 L [place] # (Auto) 0.8 Eos # (Auto) 0.2 Baso # (Auto) 0.1 Abs Immat Gran (auto) 0.11 H Absolute Neuts (auto) 17.5 H Absolute Nucleated RBC 0.000 Nucleated RBC % (auto) 0.0 VBG pH VBG pCO2 VBG pO2 VBG HCO3 VBG O2 Saturation VBG Base Excess Sodium 132 L Potassium 4.3 Chloride 101 Carbon Dioxide 26 Anion Gap 9 L BUN 27 H Creatinine 3.32 H Estim Creat Clear Calc 33.8 Estimated GFR 20 POC Glucose 174 H 141 H Random Glucose 150 H Lactic Acid 0.9 Calcium 8.2 L Total Bilirubin 0.4 AST 24 ALT 10 Alkaline Phosphatase 123 H Ammonia 50 Total Protein 7.1 Albumin 2.9 L 10/04/24 10/04/24 10/05/24 20:16 21:54 06:19 WBC 32.6 H* RBC 2.81 L Hgb 7.9 L Hct 26.7 L MCV 95.0 MCH 28.1 MCHC 29.6 L RDW 16.9 H Plt Count 200 D MPV 10.4 Immature Gran % (Auto) Neut % (Auto) Lymph % (Auto) [place] % (Auto) Eos % (Auto) Baso % (Auto) Lymph # (Auto) [place] # (Auto) Eos # (Auto) Baso # (Auto) Abs Immat Gran (auto) Absolute Neuts (auto) Absolute Nucleated RBC 0.000 Nucleated RBC % (auto) 0.0 VBG pH 7.41 VBG pCO2 39 VBG pO2 101 VBG HCO3 25 VBG O2 Saturation 100.0 VBG Base Excess 0.9 Sodium 133 L Potassium 4.0 Chloride 102 Carbon Dioxide 22 Anion Gap 13 BUN 33 H Creatinine 3.83 H Estim Creat Clear Calc 28.7 Estimated GFR 17 POC Glucose 200 H Random Glucose 102 Lactic Acid Calcium 8.1 L Total Bilirubin AST ALT Alkaline Phosphatase Ammonia Total Protein Albumin 10/05/24 07:22 WBC RBC Hgb Hct MCV MCH MCHC RDW Plt Count MPV Immature Gran % (Auto) Neut % (Auto) Lymph % (Auto) [place] % (Auto) Eos % (Auto) Baso % (Auto) Lymph # (Auto) [place] # (Auto) Eos # (Auto) Baso # (Auto) Abs Immat Gran (auto) Absolute Neuts (auto) Absolute Nucleated RBC Nucleated RBC % (auto) VBG pH VBG pCO2 VBG pO2 VBG HCO3 VBG O2 Saturation VBG Base Excess Sodium Potassium Chloride Carbon Dioxide Anion Gap BUN Creatinine Estim Creat Clear Calc Estimated GFR POC Glucose 96 Random Glucose Lactic Acid Calcium Total Bilirubin AST ALT Alkaline Phosphatase Ammonia Total Protein Albumin Microbiology Microbiology Results: Microbiology 10/04/24 Unknown Urine clean catch - Clean Catch Midstream Urine Culture - Final 10/04/24 20:07 Blood - Venous Blood Culture - Preliminary Prelim: GPC Gram Stain only 10/04/24 20:07 Blood - Venous Blood Culture - Preliminary Prelim: GPC Gram Stain only 10/04/24 04:55 Blood - Venous Blood Culture - Preliminary No growth after 24 hours. 10/04/24 04:55 Blood - Venous Blood Culture - Preliminary No growth after 24 hours. Procedures Date of Service Date of Service: 10/05/24 Assessment & Plan Assessment and plan (1) ESRD (end stage renal disease) on dialysis: Status: Acute (2) Acute hypoxemic respiratory failure: Status: Resolved (3) Anasarca: Status: Resolved Plan Pt with ESRD 2/2 natural progression of CKD 2/2 diabetic nephropathy and cocaine-induced nephropathy. patient has permacath (right IJ) in place without erythema, dressing intact H&H 7.9 & 26.7, retacrit administered 10,000 units 10/04 potassium within normal limits Calcium 8.2, 09/23 PTH 123, calcitriol 0.5mg daily Phosphorous 5.4 on 10/04, phoslo 1334mg PO TID with meals no metabolic acidosis present at this time He will continue HD M,W, as his outpatient schedule patient remains fluid-overloaded, will ultrafiltrate only today to remove additional fluid as blood pressure tolerates; will also start torsemide 80mg PO TID, recommend discontinuing IVF. Recommend 1.5L fluid restriction which has also been discussed with pt. Discussed with Dr Cagle Time Spent With Patient Time: Total time managing care of this patient today ____ minutes. Progress Note: Quality Stroke Does the patient have a stroke diagnosis?: No
[2024-10-05] MEDS: Insulin Glargine,Hum.rec.anlog 100 UNIT/ML 10 ML VIAL 10 UNIT SUBCUT (09:00)
--- NOTE | 2024-10-05 09:50 | PM.PROC ---
Brief Operative Note Date of procedure: 10/05/24 Pre-op diagnosis: Large left pleural effusion Post-op diagnosis: other (Large loculated left pleural effusion) Procedure: US left thoracentesis and chest tube Images demonstrated a large left loculated pleural effusion. No fluid could be aspirated. A 12 fr pigtail catheter was placed. Small amount of [place] fluid aspirated and sent for analysis. Recommend consultation with Pulmonary/Thoracic service. Anesthesia: local
[2024-10-05] MEDS: Lidocaine HCl 1 % MPF 5 ML VIAL SUBCUT (10:21)
[2024-10-05 10:28] LABS: MN% 94.8 %; PMN% 5.2 %
[2024-10-05] MEDS: Buprenorphine/Naloxone 8/2 mg FILM 1 FILM SUBLINGUAL ×3 (10:47→21:25)
[2024-10-05] MEDS: Omeprazole 20 MG CAPSULE.DR PO (10:47)
[2024-10-05] MEDS: calcitrioL 0.25 MCG CAPSULE 0.5 MCG PO (10:47)
[2024-10-05] MEDS: Amiodarone HCL 200 MG TABLET PO (10:50)
[2024-10-05] MEDS: Multivitamin TABLET 1 TAB PO (10:50)
[2024-10-05] MEDS: Apixaban 5 MG TABLET PO ×2 (10:50→21:25)
[2024-10-05] MEDS: Calcium Acetate 667 MG CAPSULE 1334 MG PO ×2 (10:50→15:11)
[2024-10-05] MEDS: oxyCODONE HCl Immed Release 5 MG TABLET PO ×2 (11:07→16:53)
[2024-10-05 11:15] LABS: Glucose, Whole Blood 92 mg/dL (60-115)
[2024-10-05 11:28] LABS: Lymphocytes Pleural Fluid 16 %; Neutrophils Pleural Fluid 6 %
[2024-10-05 11:29] LABS: BF Shift QC OK YES; Eosinophils Pleural Fluid 1 %; Monocytes Pleural Fluid 1 %; Other Cells Plerual Fl 76 %
[2024-10-05 14:00] LABS: Glucose, Whole Blood 182 mg/dL (60-115)
--- NOTE | 2024-10-05 14:19 | HO.PM.IMPN ---
Subjective Subjective Date of Service: 10/05/24 Interval History: f/u on sob d/t empayema, fluid overload, MRSA bacteremia. Pt seems less confused today, fevers have gone down, and blood cultures are positive for MRSA Physical Exam Vital Signs: Vital Signs: Last Vital Signs Temp 100.3 F 10/05/24 11:08 Pulse 96 10/05/24 11:08 Resp 20 10/05/24 11:08 BP 116/53 L 10/05/24 11:08 Pulse Ox 93 10/05/24 11:08 O2 Del Method Nasal Cannula 10/05/24 11:08 O2 Flow Rate 3.5 10/05/24 11:08 Oxygen Flow Rate 2 10/03/24 18:18 BMI result Body Mass Index 34.1 Const: Other: General: AO X 2, no acute distress Resp: CTA bilateral CVS: S1,S2,RRR GI: +BS, NT, no distention Skin: No rash Neuro: motor grossly intact Psych: appropriate affect Objective Data Active Medications Acetaminophen (Acetaminophen 325 Mg Tablet) 975 mg PO Q6H PRN PRN Reason: Pain, Mild (Pain Scale 1-3), fever or headache Acetaminophen (Acetaminophen Supp 650 Mg Supp.Rect) 650 mg LA Q6H PRN PRN Reason: Fever >101 Last Admin: 10/04/24 20:13 Dose: 650 mg Documented By: MARYBEL Amiodarone HCl (Amiodarone Hcl 200 Mg Tablet) 200 mg PO DAILY [facility] Last Admin: 10/05/24 10:50 Dose: 200 mg Documented By: DENNY Apixaban (Apixaban 5 Mg Tablet) 5 mg PO BID [facility] [place] Last Admin: 10/05/24 10:50 Dose: 5 mg Documented By: DENNY Atorvastatin Calcium (Atorvastatin Calcium 40 Mg Tablet) 40 mg PO BEDTIME [facility] [place] Last Admin: 10/04/24 21:26 Dose: Not Given Documented By: MARYBEL Non-Admin Reason: Physician Held Med Buprenorphine/Naloxone (Buprenorphine/Naloxone 8/2 Mg Film) 1 film SUBLINGUAL TID [facility] [place] Last Admin: 10/05/24 10:47 Dose: 1 film Documented By: DENNY Calcitriol (Calcitriol 0.25 Mcg Capsule) 0.5 mcg PO DAILY [facility] [place] Last Admin: 10/05/24 10:47 Dose: 0.5 mcg Documented By: DENNY Calcium Acetate (Calcium Acetate 667 Mg Capsule) 1,334 mg PO TIDWM [facility] [place] Last Admin: 10/05/24 10:50 Dose: 1,334 mg Documented By: DENNY Ceftriaxone Sodium (Ceftriaxone Sodium 1 Gm Vial) 1 gm IVPUSH Q24H [facility] [place] Last Admin: 10/04/24 20:21 Dose: Not Given Documented By: MARYBEL Non-Admin Reason: Medication Discontinued Glucose (Glucose Gel 15 Gm Gel..Gram.) 15 gm PO Q15M PRN; Protocol PRN Reason: per Hypoglycemia Standing Ord. Dextrose (D10) 250 mls @ 750 mls/hr IV Q15M PRN; Protocol PRN Reason: per Hypoglycemia Standing Ord. Vancomycin HCl 500 mg/ Sodium (Chloride) 110 mls @ 110 mls/hr IV MoWeFr [facility] [place] Piperacillin Sod/Tazobactam (Sod 2.25 gm/ Sodium Chloride) 50 mls @ 100 mls/hr IV Q8H [facility] [place] Last Infusion: 10/05/24 05:20 Dose: Infused Documented By: MICHELE Sodium Chloride (Ns) 1,000 mls @ 125 mls/hr IVCONT .Q8H [facility] [place] Last Admin: 10/05/24 03:41 Dose: Not Given Documented By: MICHELE Non-Admin Reason: Physician Held Med Insulin Glargine (Insulin Glargine,Hum.Rec.Anlog 100 Unit/Ml 10 Ml Vial) 10 unit SUBCUT DAILY [facility] [place] Last Admin: 10/05/24 11:25 Dose: 5 unit Documented By: DENNY Comments: MD bernal. Insulin Human Lispro (Insulin Lispro 100 Unit/Ml 3 Ml Vial) 0 unit SUBCUT QIDACHS [facility] [place]; Protocol Last Admin: 10/05/24 12:10 Dose: Not Given Documented By: DENNY Non-Admin Reason: No Insulin Coverage Metoprolol Succinate (Metoprolol Succinate Er 100 Mg Tab.Er.24h) 100 mg PO DAILY [facility] [place]; Protocol Last Admin: 10/05/24 11:26 Dose: Not Given Documented By: DENNY Non-Admin Reason: Physician Approved Multivitamins/Vitamin C (Multivitamin Tablet) 1 tab PO DAILY [facility] [place] Last Admin: 10/05/24 10:50 Dose: 1 tab Documented By: DENNY Omeprazole (Omeprazole 20 Mg Capsule.Dr) 20 mg PO DAILY@0630 [facility] [place] Last Admin: 10/05/24 10:47 Dose: 20 mg Documented By: DENNY Oxycodone HCl (Oxycodone Hcl Immed Release 5 Mg Tablet) 5 mg PO Q6H PRN PRN Reason: Pain, Severe (Pain Scale 7-10) Last Admin: 10/05/24 11:07 Dose: 5 mg Documented By: DENNY Pharmacy Consult (Consult Rx Vancomycin Dosing) 1 each MISCELLANE DAILY PRN PRN Reason: Consult order Sodium Chloride (0.9 % Sodium Chloride Flush 3 Ml Syringe) 3 ml IVFLUSH QSHIFT [facility] [place] Last Admin: 10/05/24 10:51 Dose: 3 ml Documented By: DENNY Torsemide (Torsemide 20 Mg Tablet) 80 mg PO BID [facility] [place]; Protocol Labs 10/05/24 06:19 10/05/24 06:19 Labs: Laboratory Results - last 24 hr 10/04/24 10/04/24 10/04/24 18:31 20:07 20:16 MCV 93.1 MCH 28.1 MCHC 30.2 L RDW 17.0 H Plt Count 270 MPV 10.1 Immature Gran % (Auto) 0.6 H Neut % (Auto) 89.1 H Lymph % (Auto) 5.1 L Bradford % (Auto) 3.9 Eos % (Auto) 1.0 Baso % (Auto) 0.3 Lymph # (Auto) 1.0 L Bradford # (Auto) 0.8 Eos # (Auto) 0.2 Baso # (Auto) 0.1 Abs Immat Gran (auto) 0.11 H Absolute Neuts (auto) 17.5 H Absolute Nucleated RBC 0.000 Nucleated RBC % (auto) 0.0 VBG pH 7.41 VBG pCO2 39 VBG pO2 101 VBG HCO3 25 VBG O2 Saturation 100.0 VBG Base Excess 0.9 Anion Gap 9 L Estim Creat Clear Calc 33.8 Estimated GFR 20 POC Glucose 141 H Random Glucose 150 H Lactic Acid 0.9 Calcium 8.2 L Total Bilirubin 0.4 AST 24 ALT 10 Alkaline Phosphatase 123 H Ammonia 50 Total Protein 7.1 Albumin 2.9 L Pleural WBC Pleural RBC Pleural Neutrophils Pleural Lymphocytes Pleural Monocytes Pleural Eosinophils Pleural Other Cells 10/04/24 10/05/24 10/05/24 21:54 06:19 07:22 MCV 95.0 MCH 28.1 MCHC 29.6 L RDW 16.9 H Plt Count 200 D MPV 10.4 Immature Gran % (Auto) Neut % (Auto) Lymph % (Auto) Bradford % (Auto) Eos % (Auto) Baso % (Auto) Lymph # (Auto) Bradford # (Auto) Eos # (Auto) Baso # (Auto) Abs Immat Gran (auto) Absolute Neuts (auto) Absolute Nucleated RBC 0.000 Nucleated RBC % (auto) 0.0 VBG pH VBG pCO2 VBG pO2 VBG HCO3 VBG O2 Saturation VBG Base Excess Anion Gap 13 Estim Creat Clear Calc 28.7 Estimated GFR 17 POC Glucose 200 H 96 Random Glucose 102 Lactic Acid Calcium 8.1 L Total Bilirubin AST ALT Alkaline Phosphatase Ammonia Total Protein Albumin Pleural WBC Pleural RBC Pleural Neutrophils Pleural Lymphocytes Pleural Monocytes Pleural Eosinophils Pleural Other Cells 10/05/24 10/05/24 10/05/24 09:15 11:08 13:56 MCV MCH MCHC RDW Plt Count MPV Immature Gran % (Auto) Neut % (Auto) Lymph % (Auto) Bradford % (Auto) Eos % (Auto) Baso % (Auto) Lymph # (Auto) Bradford # (Auto) Eos # (Auto) Baso # (Auto) Abs Immat Gran (auto) Absolute Neuts (auto) Absolute Nucleated RBC Nucleated RBC % (auto) VBG pH VBG pCO2 VBG pO2 VBG HCO3 VBG O2 Saturation VBG Base Excess Anion Gap Estim Creat Clear Calc Estimated GFR POC Glucose 92 182 H Random Glucose Lactic Acid Calcium Total Bilirubin AST ALT Alkaline Phosphatase Ammonia Total Protein Albumin Pleural WBC 0.630 Pleural RBC 0.010 Pleural Neutrophils 6 Pleural Lymphocytes 16 Pleural Monocytes 1 Pleural Eosinophils 1 Pleural Other Cells 76 Microbiology Microbiology Results: Microbiology 10/05/24 09:15 Gram Stain - Final Thoracentesis Fluid 10/04/24 20:07 Blood Culture - Preliminary Blood - Venous Prelim: GPC Gram Stain only 10/04/24 20:07 Blood Culture - Preliminary Blood - Venous Prelim: GPC Gram Stain only 10/04/24 Unknown Urine Culture - Final Urine clean catch - Clean Catch Midstream 10/04/24 04:55 Blood Culture - Preliminary Blood - Venous No growth after 24 hours. 10/04/24 04:55 Blood Culture - Preliminary Blood - Venous No growth after 24 hours. Assessment and Plan (1) MRSA bacteremia: Status: Acute (2) Empyema: Status: Acute (3) ESRD on dialysis: Status: Acute Plan 44 y/o man with past medical history significant for ESRD on HD (MWF) here with sob and found to have fluid overload and large left fluid overload Shortness on breath, multifactorial: Fluid overload secondary to end-stage renal disease + large left pleural effusion s/p thoracentesis today 10/05 with minimal output --loculated -Continue Vanco, Kefzol for empayema -thoracic surgery consult for empayema Gram positive Cocci bacteremia, PCR + MRSA -continue Vanco post dialysis -add Kefzol and until cultures clear -ID consult -Echocardigram to rule endocarditis -repeat cultures tomorrow Paroxysmal atrial flutter. Continue amiodarone, and Eliquis Elevated troponin, chronic. No chest pain. Likely secondary to end-stage renal disease. History of drug abuse. Continue Suboxone. Type 2 diabetes mellitus. BG checks before meals at bedtime. Insulin sliding scale and Lantus. Diabetic diet Hyperlipidemia. Continue atorvastatin. Right BKA. no issues DVT prophylaxis: Eliquis Code status: Full Need for inpt: MRSA bacteremia Quality Stroke Does the patient have a stroke diagnosis?: No VTE Prior VTE?: No VTE Risk Level:: Medical - moderate - high VTE Device Contraindication: Treatment Not Indicated VTE Drug Contraindication: N/A - Med Ordered
--- NOTE | 2024-10-05 14:25 | CA_ITS ---
Transthoracic Echocardiogram Patient (Last, First, Middle): Deandre Luong M Gender: Male Date of : 1980 Age: 44 Procedure Date: 10/05/2024 Procedure Type: Transthoracic Echocardiogram Location: [facility] Height: 175.26 cm Weight: 104.78 kg BSA: 2.20 m2 Heart Rate: 98 bpm BP: 98 / 40 mmHg Search Advertising Strategist: SB Referring MD: Harley Cooper MD Symptoms: rule endocarditis, has bacteremia Study Quality: Adequate ECG Rhythm: Sinus Conclusions: - Normal left ventricular size, thickness, systolic function, and wall motion. The visually estimated ejection fraction is between 55-60%. - Normal right ventricular cavity size and systolic function. - Small mobile mass noted attached to pulmonic valve in some views- cannot rule out vegetation. - Thickening of the left coronary cusp noted on short axis views- no obvious vegetation. Findings Procedure Information The quality of the study was technically difficult. The study quality is limited by patients body habitus. Left Ventricle Normal left ventricular size, thickness, systolic function, and wall motion. The visually estimated ejection fraction is between 55-60%. Diastolic function is indeterminate on the basis of available data. Right Ventricle Normal right ventricular cavity size and systolic function. Atria The left atrium is likely dilated. Aortic Valve There is no aortic valve stenosis. There is no aortic valve regurgitation. Thickening of the left coronary cusp noted on short axis views- no obvious vegetation. Mitral Valve Normal mitral valve structure and function. There is no mitral valve regurgitation. There is no mitral valve stenosis. Pulmonic Valve There is trace pulmonic valve regurgitation. Small mobile mass noted attached to pulmonic valve in some views- cannot rule out vegetation. Tricuspid Valve Normal tricuspid valve structure. There is no tricuspid valve regurgitation. The right ventricular systolic pressure is 37 mmHg. Significantly elevated right atrial pressure. Mild pulmonary hypertension is present. Great Vessels There is mild dilatation of the sinuses of Valsalva measuring 4.00 cm and mild dilatation of the ascending aorta measuring 3.50 cm. Venous The inferior vena cava is dilated and does not collapse with inspiration. Pericardium/Pleural There is a trivial pericardial effusion. Prior Study Comparison Changes noted compared to prior study dated: 09/20/2024. Small vegetation on pulmonic valve. Thickening of the left cusp of aortic valve. Measurements 2D Linear Measurements IVSd: 1.14 0.6-0.9/0.6-1.0 cm LVIDd: 5.20 3.9-5.3/4.2-5.9 cm LVIDd Index: 2.36 2.4-3.2/2.2-3.1 cm/m2 LVIDs: 3.54 2.0-3.6 cm LVPWd: 1.00 0.7-1.1 cm LA Diam: 3.80 2.7-3.8/3.0-4.0 cm LAIDs Index: 1.73 1.5-2.3 cm/m2 LV Mass: 265.03 67-162/88-224 g LV Mass Index: 120.47 43-95/49-115 g/m2 LVOT Diam: 2.60 3.0+(-)1.3 cm Mitral Valve MV Pk E: 1.30 MV PK A: 0.70 MV Decel Time: 200.00 E/A: 1.90 E'Lateral: 9.90 E'Medial: 7.18 E/E' Med: 18.10 E/E' Lat: 13.10 PHT: 59.00 MVA PHT: 3.73 Decel [place]: 6.50 Aortic Valve AoV Pk Sanchez: 1.43 AoV Mn Sanchez: 1.13 AoV VTI: 0.23 AoV Pk Grad: 8.00 Aov Mn Grad: 6.00 IGLESIA Cont.VTI: 4.01 LVOT LVOT Pk Sanchez: 1.20 LVOT Mn Sanchez: 0.85 LVOT VTI: 0.17 LVOT Pk Grad: 6.00 LVOT Mn Grad: 3.00 LVOT Diam: 2.60 LVOT Area: 5.31 Diastolic Function MV Pk E: 1.30 MV Pk A: 0.70 E/A: 1.90 E'Medial: 7.18 E/E' Med: 18.10 E' Laterial: 9.90 E/E' Lat: 13.10 Right Ventricle TAPSE (mm): 15.20 TVS' Sanchez: 11.60 Tricuspid Valve TR Pk Sanchez: 2.34 TR Pk Grad: 22.00 RA Press: 15.00 RVSP: 37.00 Great Vessels Aorta Sinus of Valsalva: 4.00 2.0-3.5 cm Ao Asc: 3.50 2.1-3.4 cm Pulmonary Valve PV Pk Sanchez: 1.18 Peak PV Grad: 6.00 Updated in Other Vendor System with Status of Final Fabio Whitten MD electronically signed on 10/06/2024 10:46:16 AM with status of Final
[2024-10-05] MEDS: ceFAZolin Sodium/Dextrose,Iso 2 GM/50 ML PIGGYBACK IV (16:26)
[2024-10-05 16:41] LABS: Glucose, Whole Blood 372 mg/dL (60-115)
[2024-10-05] MEDS: Insulin Lispro 100 UNIT/ML 3 ML VIAL SUBCUT ×2 (16:47→21:25)
[2024-10-05] MEDS: Acetaminophen 325 MG TABLET 975 MG PO (16:51)
[2024-10-05 20:22] LABS: Glucose, Whole Blood 216 mg/dL (60-115)
[2024-10-05] MEDS: Atorvastatin Calcium 40 MG TABLET PO (21:25)
[2024-10-06] MEDS: oxyCODONE HCl Immed Release 5 MG TABLET PO ×3 (02:36→21:45)
[2024-10-06] MEDS: Morphine Sulfate 2 MG/ML CARTRIDGE IVPUSH (03:49)
[2024-10-06 04:00] VITALS: BP 92/68; PULSE 102; RESP 16; TEMP 37.2; O2SAT 95
[2024-10-06 06:46] LABS: Hematocrit 25.5 % (42.0-52.0); Hemoglobin 7.6 g/dl (14.0-18.0); Mean Corpuscular HGB Conc 29.8 g/dl (31.0-36.0); Mean Corpuscular Hemoglobin 28.1 pg (27.0-33.0); Mean Corpuscular Volume 94.4 fL (80.0-98.0); Mean Platelet Volume 10.5 fL (9.4-12.4); Platelet Count 176 X10*3/uL (160-400); Red Cell Distribution Width 16.6 % (11.0-16.0); White Blood Count 17.2 X10*3/uL (4.8-10.8)
[2024-10-06 07:16] LABS: Anion Gap 14 (12-20); Blood Urea Nitrogen 44 mg/dL (9-16); Carbon Dioxide 22 mmol/L (22-29); Chloride 100 mmol/L (96-108); Glucose Fasting 188 mg/dL (60-99); Glucose Random 187 mg/dL (60-115); Potassium 4.4 mmol/L (3.3-5.1); Sodium 132 mmol/L (135-145)
[2024-10-06 07:22] LABS: Creatinine Clr Calc Pharmacy 22.6; Estimated Glomerular Filt Rate 13
--- NOTE | 2024-10-06 07:35 | HO.THORCONS ---
History of Present Illness Consult details Consult date: 10/06/24 Narrative: Patient is a 44-year-old male with multiple multiple comorbidities and intercurrent medical problems who presents here with a variety of complaints including no shortness of breath. He had a chest x-ray demonstrating a significant left pleural effusion and had IR placed chest tube performed on 10/05. Thoracic surgical consultation to evaluate for empyema. Patient states that he has had a several day history of productive cough. He denies any hemoptysis, wheezing, or chest pain. He does not recall ever having had pleural effusions in the past. Chart was reviewed and patient evaluated [facility] Past Medical History Medical History (Updated 10/06/24 @ 07:38 by Matteo Schneider MD) Volume overload Opioid use disorder, severe, dependence Paroxysmal atrial flutter Cardiomyopathy Pericardial effusion Atrial flutter Need for acute hemodialysis Leukocytosis Anemia Anemia Transfusion history Atrial flutter, paroxysmal COPD (chronic obstructive pulmonary disease) Constipation Callus of foot Seizure Polysubstance abuse CKD (chronic kidney disease) stage 3, GFR 30-59 ml/min Foot osteomyelitis, left Amputation of toe of right foot Diabetic ulcer of right foot Hyperglycemia due to type 2 diabetes mellitus Renal failure Sleep apnea Diabetes HTN (hypertension) Surgical History Surgical History Hx of right BKA History of surgical procedure (~04/24/23) Social History Social History Household Members: Family Household Members Other:: mother Housing: Apartment Do you presently have visiting nurse or other home services: Yes Unable to assess alcohol history related to: Unable to respond Alcohol intake: former Comment: bilateral wrist restraints/propofol drip for airway safety Patient Tobacco Use Status: Former Tobacco user Tobacco use type: Cigarette Cigarette Packs Per Day: 0.5 Cigarettes Per Day: 10.0 Years Smoked: 33 e-Cigarette/Vaping Use: Currently Using Second Hand Smoke Exposure: Yes Substance Use Type: Crack/Cocaine, Heroin, Marijuana and Opiates service: No Meds Allergies Allergy/AdvReac Type Severity Reaction Status Date / Time No Known Allergies Allergy Verified 10/03/24 18:21 [No Known Allergies*] Active Medications: Current Medications Acetaminophen (Acetaminophen 325 Mg Tablet) 975 mg PO Q6H PRN PRN Reason: Pain, Mild (Pain Scale 1-3), fever or headache Last Admin: 10/05/24 16:51 Dose: 975 mg Acetaminophen (Acetaminophen Supp 650 Mg Supp.Rect) 650 mg GA Q6H PRN PRN Reason: Fever >101 Last Admin: 10/04/24 20:13 Dose: 650 mg Amiodarone HCl (Amiodarone Hcl 200 Mg Tablet) 200 mg PO DAILY [facility] Last Admin: 10/05/24 10:50 Dose: 200 mg Apixaban (Apixaban 5 Mg Tablet) 5 mg PO BID [facility] Last Admin: 10/05/24 21:25 Dose: 5 mg Atorvastatin Calcium (Atorvastatin Calcium 40 Mg Tablet) 40 mg PO BEDTIME [facility] Last Admin: 10/05/24 21:25 Dose: 40 mg Buprenorphine/Naloxone (Buprenorphine/Naloxone 8/2 Mg Film) 1 film SUBLINGUAL TID [facility] Last Admin: 10/05/24 21:25 Dose: 1 film Calcitriol (Calcitriol 0.25 Mcg Capsule) 0.5 mcg PO DAILY [facility] Last Admin: 10/05/24 10:47 Dose: 0.5 mcg Calcium Acetate (Calcium Acetate 667 Mg Capsule) 1,334 mg PO TIDWM [facility] Last Admin: 10/05/24 18:36 Dose: Not Given Glucose (Glucose Gel 15 Gm Gel..Gram.) 15 gm PO Q15M PRN; Protocol PRN Reason: per Hypoglycemia Standing Ord. Dextrose (D10) 250 mls @ 750 mls/hr IV Q15M PRN; Protocol PRN Reason: per Hypoglycemia Standing Ord. Vancomycin HCl 500 mg/ Sodium (Chloride) 110 mls @ 110 mls/hr IV MoWeFr [facility] Cefazolin Sodium/Dextrose (Ancef) 2 gm in 50 mls @ 100 mls/hr IV MOWEFR@1600 [facility] Last Infusion: 10/05/24 17:10 Dose: Infused Insulin Glargine (Insulin Glargine,Hum.Rec.Anlog 100 Unit/Ml 10 Ml Vial) 10 unit SUBCUT DAILY [facility] Last Admin: 10/05/24 09:00 Dose: 5 unit Insulin Human Lispro (Insulin Lispro 100 Unit/Ml 3 Ml Vial) 0 unit SUBCUT QIDACHS [facility]; Protocol Last Admin: 10/05/24 21:25 Dose: 4 unit Metoprolol Succinate (Metoprolol Succinate Er 100 Mg Tab.Er.24h) 100 mg PO DAILY [facility]; Protocol Last Admin: 10/05/24 11:26 Dose: Not Given Multivitamins/Vitamin C (Multivitamin Tablet) 1 tab PO DAILY [facility] Last Admin: 10/05/24 10:50 Dose: 1 tab Omeprazole (Omeprazole 20 Mg Capsule.Dr) 20 mg PO DAILY@0630 [facility] Last Admin: 10/05/24 10:47 Dose: 20 mg Oxycodone HCl (Oxycodone Hcl Immed Release 5 Mg Tablet) 5 mg PO Q6H PRN PRN Reason: Pain, Severe (Pain Scale 7-10) Last Admin: 10/06/24 02:36 Dose: 5 mg Pharmacy Consult (Consult Rx Vancomycin Dosing) 1 each MISCELLANE DAILY PRN PRN Reason: Consult order Sodium Chloride (0.9 % Sodium Chloride Flush 3 Ml Syringe) 3 ml IVFLUSH QSHIFT [facility] Last Admin: 10/06/24 00:00 Dose: 3 ml Torsemide (Torsemide 20 Mg Tablet) 80 mg PO BID [facility]; Protocol Last Admin: 10/05/24 22:00 Dose: Not Given Home Medications ?Medication ?Instructions ?Recorded ?Confirmed ?Last Taken ?Type insulin glargine 100 unit/mL (3 10 unit subcut DAILY 09/28/24 10/04/24 09/27/24 History mL) subcutaneous pen insulin lispro 100 unit/mL See Protocol subcut TIDAC 09/28/24 10/04/24 09/27/24 History subcutaneous pen (Humalog KwikPen (U-100) Insulin) melatonin 5 mg tablet 5 mg PO BEDTIME PRN insomnia 09/28/24 10/04/24 Unknown History Physical Exam Vital Signs: Vital Signs: Last Vital Signs Temp 99.0 F 10/06/24 04:00 Pulse 102 H 10/06/24 04:00 Resp 16 10/06/24 04:00 BP 92/68 10/06/24 04:00 Pulse Ox 95 10/06/24 04:00 O2 Del Method Nasal Cannula 10/06/24 04:00 O2 Flow Rate 3 10/06/24 04:00 Oxygen Flow Rate 2 10/03/24 18:18 BMI result Body Mass Index 34.1 Const: Other: Very ill-appearing male, looking much older than his chronologic age. Multiple tattoos. Chest: Other: Chest tube in place with serosanguineous output. No evidence of any air leak. Results Labs 10/06/24 06:00 10/06/24 06:00 Labs: Abnormal lab results 10/05/24 10/05/24 10/05/24 Range/Units 13:56 16:23 20:18 WBC (4.8-10.8) X10*3/uL RBC (4.60-5.80) X10*6/uL Hgb (14.0-18.0) g/dl Hct (42.0-52.0) % MCHC (31.0-36.0) g/dl RDW (11.0-16.0) % Sodium (135-145) mmol/L BUN (9-16) mg/dL Creatinine (0.5-1.4) mg/dL POC Glucose 182 H 372 H* 216 H (60-115) mg/dL Random Glucose (60-115) mg/dL Fasting Glucose (60-99) mg/dL Calcium (8.4-10.2) mg/dL 10/06/24 Range/Units 06:00 WBC 17.2 H (4.8-10.8) X10*3/uL RBC 2.70 L (4.60-5.80) X10*6/uL Hgb 7.6 L (14.0-18.0) g/dl Hct 25.5 L (42.0-52.0) % MCHC 29.8 L (31.0-36.0) g/dl RDW 16.6 H (11.0-16.0) % Sodium 132 L (135-145) mmol/L BUN 44 H (9-16) mg/dL Creatinine 4.87 H* (0.5-1.4) mg/dL POC Glucose (60-115) mg/dL Random Glucose 187 H (60-115) mg/dL Fasting Glucose 188 H (60-99) mg/dL Calcium 8.0 L (8.4-10.2) mg/dL Short CBC 10/06/24 Range/Units 06:00 WBC 17.2 H (4.8-10.8) X10*3/uL Hgb 7.6 L (14.0-18.0) g/dl Hct 25.5 L (42.0-52.0) % Plt Count 176 (160-400) X10*3/uL BMP 10/06/24 06:00 Sodium 132 L Potassium 4.4 Chloride 100 Carbon Dioxide 22 BUN 44 H Creatinine 4.87 H* Calcium 8.0 L Urine 10/04/24 Range/Units 01:45 Urine Color Yellow Urine Appearance Clear Urine pH 5.5 (5.0-9.0) Ur Specific [place] 1.020 (1.005-1.025) Urine Protein >=1000 (4+) H (Neg-Trace) mg/dL Urine Glucose (UA) 500 H (Negative) mg/dL All other labs normal. Assessment and Plan (1) Acute respiratory failure with hypoxia: Status: Acute (2) COPD exacerbation: Status: Acute (3) Pleural effusion, left: Status: Acute Plan Etiology of pleural effusion may be related to patient's renal failure, or an infectious or inflammatory or less likely a neoplastic process. A CT scan of the chest will be obtained to assess his chest cavity and direct further therapy based on these results and the patient's clinical course. Plan reviewed with the patient. All questions answered. Procedures Date of Service Date of Service: 10/06/24
[2024-10-06 07:45] VITALS: BP 102/50; PULSE 82; RESP 18; TEMP 36.6; O2SAT 94
[2024-10-06 08:09] LABS: Glucose, Whole Blood 192 mg/dL (60-115)
--- NOTE | 2024-10-06 08:15 | P.PNNP_ITS ---
Subjective Subjective Date of Service: 10/06/24 Interval history: 44 y/o male with a medical history of ESRD on HD, HTN, HLD, polysubstance dependence, PVD. 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 Recurrent hospitalizations since August. Now ESRD pt 2/2 diabetic nephropathy/progression of underlying disease in addition to cocaine-induced nephropathy presented 10/03 evening with dyspnea x1 days No missed HD sessions. Per HD RN pt has been drinking significant fluid during outpatient HD sessions. blood cultures from 10/04 a.m. negative after 48 hours; 10/04 pm blood cultures +GPC 2 sets, preliminary 10/06 cultures drawn pending CXR 10/03 large left pleural effusion, small right pleural effusion - US for left thoracentesis showed large left loculated pleural effusion, no fluid could be aspirated; pigtail catheter placed; thoracentesis fluid cent and pending. Concern for empyema. reports he is drinking very little fluid compared to what he used to prior to HD reports he drinks less than a liter of fluid daily and is minimizing salt intake he states his breathing is comfortable now on room air denies chest pain, abdominal pain, flank pain denies tremors, twitching/abnormal movements denies itching, nausea, vomiting states he continues to urinate intermittently and denies pain/difficulty urinating, 2200mL UOP in last 24 hours Physical Exam 2 Vital Signs: Vital Signs: Last Vital Signs Temp 97.8 F 10/06/24 07:45 Pulse 82 10/06/24 07:45 Resp 18 10/06/24 07:45 BP 102/50 L 10/06/24 07:45 Pulse Ox 94 10/06/24 07:45 O2 Del Method Room Air 10/06/24 07:45 O2 Flow Rate 3 10/06/24 04:00 Oxygen Flow Rate 2 10/03/24 18:18 BMI result Body Mass Index 34.1 Const: General: no acute distress, alert and awake Neck: Neck: Yes no JVD Resp: Effort & Inspection: normal respiratory effort and able to speak in complete sentences Auscultation: rhonchi Cardio: Jugular venous distension: no JVD Rate: regular rate Rhythm: r egular rhythm Heart sounds: S1 normal heart sound present and S2 normal heart sound present GI: Other: pitting edema across lower abdomen Palpation (GI): Soft to palpation and nontender Extrem: General: Yes edema (bilateral lower extremity edema- thighs, pitting) Objective Data Labs 10/06/24 06:00 10/06/24 06:00 Labs: Laboratory Results - last 24 hr 10/05/24 10/05/24 10/05/24 09:15 11:08 13:56 WBC RBC Hgb Hct MCV MCH MCHC RDW Plt Count MPV Absolute Nucleated RBC Nucleated RBC % (auto) Sodium Potassium Chloride Carbon Dioxide Anion Gap BUN Creatinine Estim Creat Clear Calc Estimated GFR POC Glucose 92 182 H Random Glucose Fasting Glucose Calcium Pleural WBC 0.630 Pleural RBC 0.010 Pleural Neutrophils 6 Pleural Lymphocytes 16 Pleural Monocytes 1 Pleural Eosinophils 1 Pleural Other Cells 76 10/05/24 10/05/24 10/06/24 16:23 20:18 06:00 WBC 17.2 H RBC 2.70 L Hgb 7.6 L Hct 25.5 L MCV 94.4 MCH 28.1 MCHC 29.8 L RDW 16.6 H Plt Count 176 MPV 10.5 Absolute Nucleated RBC 0.000 Nucleated RBC % (auto) 0.0 Sodium 132 L Potassium 4.4 Chloride 100 Carbon Dioxide 22 Anion Gap 14 BUN 44 H Creatinine 4.87 H* Estim Creat Clear Calc 22.6 Estimated GFR 13 POC Glucose 372 H* 216 H Random Glucose 187 H Fasting Glucose 188 H Calcium 8.0 L Pleural WBC Pleural RBC Pleural Neutrophils Pleural Lymphocytes Pleural Monocytes Pleural Eosinophils Pleural Other Cells 10/06/24 07:38 WBC RBC Hgb Hct MCV MCH MCHC RDW Plt Count MPV Absolute Nucleated RBC Nucleated RBC % (auto) Sodium Potassium Chloride Carbon Dioxide Anion Gap BUN Creatinine Estim Creat Clear Calc Estimated GFR POC Glucose 192 H Random Glucose Fasting Glucose Calcium Pleural WBC Pleural RBC Pleural Neutrophils Pleural Lymphocytes Pleural Monocytes Pleural Eosinophils Pleural Other Cells Microbiology Microbiology Results: Microbiology 10/04/24 04:55 Blood - Venous Blood Culture - Preliminary No growth after 48 hours. 10/04/24 04:55 Blood - Venous Blood Culture - Preliminary No growth after 48 hours. 10/05/24 09:15 Thoracentesis Fluid Gram Stain - Final 10/04/24 20:07 Blood - Venous Blood Culture - Preliminary Prelim: GPC Gram Stain only 10/04/24 20:07 Blood - Venous Blood Culture - Preliminary Prelim: GPC Gram Stain only 10/04/24 Unknown Urine clean catch - Clean Catch Midstream Urine Culture - Final Procedures Date of Service Date of Service: 10/06/24 Assessment & Plan Assessment and plan (1) ESRD (end stage renal disease) on dialysis: Status: Acute (2) Acute hypoxemic respiratory failure: Status: Resolved (3) Anasarca: Status: Resolved Plan Pt with ESRD 2/2 natural progression of CKD 2/2 diabetic nephropathy and cocaine-induced nephropathy. patient has permacath (right IJ) in place without erythema, dressing intact. Ok to keep permcath as GPC in blood source likely empyema. H&H 7.6 & 25.5, retacrit administered 10,000 units 10/04 potassium within normal limits Calcium 8.2, 09/23 PTH 123, calcitriol 0.5mg daily Phosphorous 5.4 on 10/04, phoslo 1334mg PO TID with meals no metabolic acidosis present at this time pt remains fluid overloaded, will continue to pull fluid as tolerated during HD, torsemide 80mg PO TID, 1.5L fluid restriction He will continue HD M,W,F as his outpatient schedule (HD today) Discussed with Dr Cagle Time Spent With Patient Time: Total time managing care of this patient today ____ minutes. Progress Note: Quality Stroke Does the patient have a stroke diagnosis?: No
[2024-10-06] MEDS: Omeprazole 20 MG CAPSULE.DR PO (08:47)
[2024-10-06] MEDS: calcitrioL 0.25 MCG CAPSULE 0.5 MCG PO (08:47)
[2024-10-06] MEDS: Multivitamin TABLET 1 TAB PO (08:48)
[2024-10-06] MEDS: Torsemide 20 MG TABLET 80 MG PO (08:48)
[2024-10-06] MEDS: Amiodarone HCL 200 MG TABLET PO (08:48)
[2024-10-06] MEDS: Metoprolol Succinate ER 100 MG TAB.ER.24H PO (08:48)
[2024-10-06] MEDS: Apixaban 5 MG TABLET PO ×2 (08:48→20:16)
[2024-10-06] MEDS: Calcium Acetate 667 MG CAPSULE 1334 MG PO ×2 (08:48→15:21)
[2024-10-06] MEDS: Insulin Lispro 100 UNIT/ML 3 ML VIAL SUBCUT ×3 (08:49→21:49)
[2024-10-06] MEDS: Buprenorphine/Naloxone 8/2 mg FILM 1 FILM SUBLINGUAL ×3 (08:56→20:16)
[2024-10-06] MEDS: Insulin Glargine,Hum.rec.anlog 100 UNIT/ML 10 ML VIAL 10 UNIT SUBCUT (09:02)
--- NOTE | 2024-10-06 10:10 | MHC.CLN ---
F/U PT WITH INCREASED NUTRITION RISK R/T PRESSURE INJURY PO INTAKE 100% X 1 MEAL DIET RX: 2000DM CARDIAC LOW PHOS LOW K+-APPROPRIATE RECOMMEND ADDING SUPPLEMENT TO PROMOTE WOUND HEALING RECEIVING ENSURE MAX BID TO PROVIDE 300KCALS, 60G PROTEIN MONITOR PO INTAKE AND ENCOURAGE SUPPLEMENT
--- NOTE | 2024-10-06 10:13 | P.PNIM_ITS ---
Subjective Subjective Date of Service: 10/06/24 Interval History: f/u on sob d/t empayema, fluid overload, MRSA bacteremia. No more fever, mental study clear Physical Exam 2 Vital Signs: Vital Signs: Last Vital Signs Temp 97.8 F 10/06/24 07:45 Pulse 82 10/06/24 07:45 Resp 18 10/06/24 07:45 BP 102/50 L 10/06/24 07:45 Pulse Ox 94 10/06/24 07:45 O2 Del Method Room Air 10/06/24 07:45 O2 Flow Rate 3 10/06/24 04:00 Oxygen Flow Rate 2 10/03/24 18:18 BMI result Body Mass Index 34.1 Const: Other: General: AO X 2, no acute distress Resp: CTA bilateral CVS: S1,S2,RRR GI: +BS, NT, no distention Skin: No rash Neuro: motor grossly intact Psych: appropriate affect Objective Data Active Medications Acetaminophen (Acetaminophen 325 Mg Tablet) 975 mg PO Q6H PRN PRN Reason: Pain, Mild (Pain Scale 1-3), fever or headache Last Admin: 10/05/24 16:51 Dose: 975 mg Documented By: DENNY Acetaminophen (Acetaminophen Supp 650 Mg Supp.Rect) 650 mg IA Q6H PRN PRN Reason: Fever >101 Last Admin: 10/04/24 20:13 Dose: 650 mg Documented By: MARYBEL Amiodarone HCl (Amiodarone Hcl 200 Mg Tablet) 200 mg PO DAILY [facility] Last Admin: 10/06/24 08:48 Dose: 200 mg Documented By: STEFANI Apixaban (Apixaban 5 Mg Tablet) 5 mg PO BID [facility] Last Admin: 10/06/24 08:48 Dose: 5 mg Documented By: STEFANI Atorvastatin Calcium (Atorvastatin Calcium 40 Mg Tablet) 40 mg PO BEDTIME [facility] Last Admin: 10/05/24 21:25 Dose: 40 mg Documented By: NYA Buprenorphine/Naloxone (Buprenorphine/Naloxone 8/2 Mg Film) 1 film SUBLINGUAL TID [facility] Last Admin: 10/06/24 08:56 Dose: 1 film Documented By: STEFANI Calcitriol (Calcitriol 0.25 Mcg Capsule) 0.5 mcg PO DAILY [facility] Last Admin: 10/06/24 08:47 Dose: 0.5 mcg Documented By: STEFANI Calcium Acetate (Calcium Acetate 667 Mg Capsule) 1,334 mg PO TIDWM [facility] Last Admin: 10/06/24 08:48 Dose: 1,334 mg Documented By: STEFANI Glucose (Glucose Gel 15 Gm Gel..Gram.) 15 gm PO Q15M PRN; Protocol PRN Reason: per Hypoglycemia Standing Ord. Dextrose (D10) 250 mls @ 750 mls/hr IV Q15M PRN; Protocol PRN Reason: per Hypoglycemia Standing Ord. Vancomycin HCl 500 mg/ Sodium (Chloride) 110 mls @ 110 mls/hr IV MoWeFr [facility] Cefazolin Sodium/Dextrose (Ancef) 2 gm in 50 mls @ 100 mls/hr IV MOWEFR@1600 [facility] Last Infusion: 10/05/24 17:10 Dose: Infused Documented By: DENNY Insulin Glargine (Insulin Glargine,Hum.Rec.Anlog 100 Unit/Ml 10 Ml Vial) 10 unit SUBCUT DAILY [facility] Last Admin: 10/06/24 09:02 Dose: 10 unit Documented By: STEFANI Insulin Human Lispro (Insulin Lispro 100 Unit/Ml 3 Ml Vial) 0 unit SUBCUT QIDACHS [facility]; Protocol Last Admin: 10/06/24 08:49 Dose: 2 unit Documented By: STEFANI Metoprolol Succinate (Metoprolol Succinate Er 100 Mg Tab.Er.24h) 100 mg PO DAILY [facility]; Protocol Last Admin: 10/06/24 08:48 Dose: 100 mg Documented By: STEFANI Multivitamins/Vitamin C (Multivitamin Tablet) 1 tab PO DAILY [facility] Last Admin: 10/06/24 08:48 Dose: 1 tab Documented By: STEFANI Omeprazole (Omeprazole 20 Mg Capsule.) 20 mg PO DAILY@0630 [facility] Last Admin: 10/06/24 08:47 Dose: 20 mg Documented By: STEFANI Oxycodone HCl (Oxycodone Hcl Immed Release 5 Mg Tablet) 5 mg PO Q6H PRN PRN Reason: Pain, Severe (Pain Scale 7-10) Last Admin: 10/06/24 02:36 Dose: 5 mg Documented By: NYA Pharmacy Consult (Consult Rx Vancomycin Dosing) 1 each MISCELLANE DAILY PRN PRN Reason: Consult order Sodium Chloride (0.9 % Sodium Chloride Flush 3 Ml Syringe) 3 ml IVFLUSH QSHIFT [facility] Last Admin: 10/06/24 00:00 Dose: 3 ml Documented By: NYA Torsemide (Torsemide 20 Mg Tablet) 80 mg PO BID [facility]; Protocol Last Admin: 10/06/24 08:48 Dose: 80 mg Documented By: STEFANI Labs 10/06/24 06:00 10/06/24 06:00 Labs: Laboratory Results - last 24 hr 10/05/24 10/05/24 10/05/24 09:15 11:08 13:56 MCV MCH MCHC RDW Plt Count MPV Absolute Nucleated RBC Nucleated RBC % (auto) Anion Gap Estim Creat Clear Calc Estimated GFR POC Glucose 92 182 H Random Glucose Fasting Glucose Calcium Pleural WBC 0.630 Pleural RBC 0.010 Pleural Neutrophils 6 Pleural Lymphocytes 16 Pleural Monocytes 1 Pleural Eosinophils 1 Pleural Other Cells 76 10/05/24 10/05/24 10/06/24 16:23 20:18 06:00 MCV 94.4 MCH 28.1 MCHC 29.8 L RDW 16.6 H Plt Count 176 MPV 10.5 Absolute Nucleated RBC 0.000 Nucleated RBC % (auto) 0.0 Anion Gap 14 Estim Creat Clear Calc 22.6 Estimated GFR 13 POC Glucose 372 H* 216 H Random Glucose 187 H Fasting Glucose 188 H Calcium 8.0 L Pleural WBC Pleural RBC Pleural Neutrophils Pleural Lymphocytes Pleural Monocytes Pleural Eosinophils Pleural Other Cells 10/06/24 07:38 MCV MCH MCHC RDW Plt Count MPV Absolute Nucleated RBC Nucleated RBC % (auto) Anion Gap Estim Creat Clear Calc Estimated GFR POC Glucose 192 H Random Glucose Fasting Glucose Calcium Pleural WBC Pleural RBC Pleural Neutrophils Pleural Lymphocytes Pleural Monocytes Pleural Eosinophils Pleural Other Cells Microbiology Microbiology Results: Microbiology 10/05/24 09:15 Gram Stain - Final Thoracentesis Fluid Anaerobic Culture - Preliminary No growth to date. Body Fluid Culture - Preliminary No growth to date. 10/04/24 04:55 Blood Culture - Preliminary Blood - Venous No growth after 48 hours. 10/04/24 04:55 Blood Culture - Preliminary Blood - Venous No growth after 48 hours. 10/04/24 20:07 Blood Culture - Preliminary Blood - Venous Prelim: GPC Gram Stain only 10/04/24 20:07 Blood Culture - Preliminary Blood - Venous Prelim: GPC Gram Stain only 10/04/24 Unknown Urine Culture - Final Urine clean catch - Clean Catch Midstream Assessment and Plan (1) MRSA bacteremia: Status: Acute (2) Empyema: Status: Acute (3) ESRD on dialysis: Status: Acute Plan 44 y/o man with past medical history significant for ESRD on HD (MWF) here with sob and found to have fluid overload and large left fluid overload Shortness on breath, multifactorial: Fluid overload secondary to end-stage renal disease + large left pleural effusion s/p thoracentesis today 10/05 with minimal output --loculated -Continue Vanco, Kefzol for empayema -thoracic surgery consult for empayema -he may need catheter replaced Gram positive Cocci bacteremia, PCR + MRSA -continue Vanco post dialysis - Kefzol and until cultures clear -ID consult pending -Echocardigram to rule endocarditis -repeat cultures today (10/06) Paroxysmal atrial flutter. Continue amiodarone, and Eliquis Elevated troponin, chronic. No chest pain. Likely secondary to end-stage renal disease. History of drug abuse. Continue Suboxone. Type 2 diabetes mellitus. BG checks before meals at bedtime. Insulin sliding scale and Lantus. Diabetic diet Hyperlipidemia. Continue atorvastatin. Right BKA. no issues DVT prophylaxis: Eliquis Code status: Full Need for inpt: MRSA bacteremia Quality Stroke Does the patient have a stroke diagnosis?: No VTE Prior VTE?: No VTE Risk Level:: Medical - moderate - high VTE Device Contraindication: Treatment Not Indicated VTE Drug Contraindication: N/A - Med Ordered
--- NOTE | 2024-10-06 10:13 | MHC.CM.PN ---
Per ROUNDS discussion, Patient is not yet medically cleared for dc (ongoing treatment for Bacteremia/Sepsis);home with services is the goal and CM will continue to follow.
[2024-10-06 12:19] LABS: Glucose, Whole Blood 198 mg/dL (60-115)
--- NOTE | 2024-10-06 15:12 | HO.WOUND ---
Wound Consult: Initial 44yr old Male admitted to [facility] on 10/04/24 - See progress notes and H&P for detailed history.? Wound consult placed for Buttock and Scrotal wound POA.? Multiple attempts over yesterday and today have been made to assess patient skin however patient current unavailable in procedure with provider at bedside at the current time. The below assessment details are in relation to chart review recent admission on 09/28/24. Scrotum Etiology: ??MASD (Moisture Associated Skin Damage) Wound Bed: Scattered partial thickness tissue loss, red pink erythema and dry desquamation noted Drainage / Odor: difficult to assess Edges: ? irregular Corazon wound: ?MASD - No Induration, Fluctuance or Warmth noted Goals of Treatment: ? Triad to protect from moisture and friction and allow for moist wound healing Coccyx Etiology: ?Unstagable Pressure injury -?Present on Admission Wound Bed: appears full thickness tissue loss with adherent yellow white slough granulation buds noted Drainage / Odor: serosang Edges: ? irregular Corazon wound: MASD and friction Pain: pain reported Goals of Treatment: ?Triad to protect from moisture and friction and allow for autolytic debridement Patient should consider outpt wound clinic follow up Recommendations: 1. Turn and Reposition every 2 hours and as needed for patient comfort.? Use pillows or wedges to support off loading positions. 2. Off Load all bony prominences with use of pillows and heel boots if needed.? Apply Preventative foams where needed. ? 3. Monitor for incontinence and moisture control, use barrier creams when needed for prevention and treatment. 4. Provide adequate and supplemental nutrition.? 5. Order low air loss mattress. 6. When applicable maintain blood glucose levels per Providers order. 7. Scrotum, Buttock and Coccyx - Off Load Pressure with Q2hr turns and use of pillows. Cleanse with PH balance spray or wipes, pat dry. ?Apply thin layer of Triad to wound bed - only pat and dab no scrub and rub when soiling occurs. Reapply thin layer PRN after each episode of incontinence. Recommend follow up out patient Wound Clinic at [address] [place] [phone] and to call for an appointment at time of discharge. [phone].? Re-consult wound care Nurse for wound deterioration or wound changes.
--- NOTE | 2024-10-06 15:21 | PM.PROC ---
Brief Operative Note Date of procedure: 10/06/24 Pre-op diagnosis: Bacteremia Post-op diagnosis: same Procedure: Right IJ permacath removed. Tip sent for culture. No immediate complications.
[2024-10-06] MEDS: 0.9 % Sodium Chloride Flush 3 ML SYRINGE IVFLUSH ×3 (15:25→21:00)
[2024-10-06] MEDS: ceFAZolin Sodium/Dextrose,Iso 2 GM/50 ML PIGGYBACK IV (15:26)
[2024-10-06 15:39] VITALS: BP 102/55; PULSE 90; RESP 20; TEMP 37.3; O2SAT 94
[2024-10-06 16:40] LABS: Glucose, Whole Blood 227 mg/dL (60-115)
--- NOTE | 2024-10-06 17:16 | W.PM.IDCN ---
History of Present Illness Data of Consult Service Date: 10/06/24 Requesting physician: Harley Adler Primary Care Provider: Cristina Stover MD HPI Reason for consult: MRSA bacteremia,empyema He presents with shortness of breath and cough. He had reported chills as well. He has blood cultures x 2 10/04 staph aureus ,final pending. He has left large pleural effusion,thoracentesis fluid pending. He has ESRD on HD,COPD and DM. He has right BKA. Review of Systems Review of Systems: Yes all other systems are reviewed and are negative [facility] Past Medical History Medical History (Updated 10/06/24 @ 17:29 by Emilia North MD) Bacteremia Volume overload Opioid use disorder, severe, dependence Paroxysmal atrial flutter Cardiomyopathy Pericardial effusion Atrial flutter Need for acute hemodialysis Leukocytosis Anemia Anemia Transfusion history Atrial flutter, paroxysmal COPD (chronic obstructive pulmonary disease) Constipation Callus of foot Seizure Polysubstance abuse CKD (chronic kidney disease) stage 3, GFR 30-59 ml/min Foot osteomyelitis, left Amputation of toe of right foot Diabetic ulcer of right foot Hyperglycemia due to type 2 diabetes mellitus Renal failure Sleep apnea Diabetes HTN (hypertension) Family History Family history: reviewed and not pertinent Surgical History Surgical History Hx of right BKA History of surgical procedure (~04/24/23) Social History Social History Household Members: Family Household Members Other:: mother Housing: Apartment Do you presently have visiting nurse or other home services: Yes Unable to assess alcohol history related to: Unable to respond Alcohol intake: former Comment: bilateral wrist restraints/propofol drip for airway safety Patient Tobacco Use Status: Former Tobacco user Tobacco use type: Cigarette Cigarette Packs Per Day: 0.5 Cigarettes Per Day: 10.0 Years Smoked: 33 e-Cigarette/Vaping Use: Currently Using Second Hand Smoke Exposure: Yes Substance Use Type: Crack/Cocaine, Heroin, Marijuana and Opiates service: No Meds Allergies Allergy/AdvReac Type Severity Reaction Status Date / Time No Known Allergies Allergy Verified 10/03/24 18:21 [No Known Allergies*] Active Medications: Current Medications Acetaminophen (Acetaminophen 325 Mg Tablet) 975 mg PO Q6H PRN PRN Reason: Pain, Mild (Pain Scale 1-3), fever or headache Last Admin: 10/05/24 16:51 Dose: 975 mg Acetaminophen (Acetaminophen Supp 650 Mg Supp.Rect) 650 mg SC Q6H PRN PRN Reason: Fever >101 Last Admin: 10/04/24 20:13 Dose: 650 mg Amiodarone HCl (Amiodarone Hcl 200 Mg Tablet) 200 mg PO DAILY [facility] Last Admin: 10/06/24 08:48 Dose: 200 mg Apixaban (Apixaban 5 Mg Tablet) 5 mg PO BID [facility] Last Admin: 10/06/24 08:48 Dose: 5 mg Atorvastatin Calcium (Atorvastatin Calcium 40 Mg Tablet) 40 mg PO BEDTIME [facility] Last Admin: 10/05/24 21:25 Dose: 40 mg Buprenorphine/Naloxone (Buprenorphine/Naloxone 8/2 Mg Film) 1 film SUBLINGUAL TID [facility] Last Admin: 10/06/24 15:21 Dose: 1 film Calcitriol (Calcitriol 0.25 Mcg Capsule) 0.5 mcg PO DAILY [facility] Last Admin: 10/06/24 08:47 Dose: 0.5 mcg Calcium Acetate (Calcium Acetate 667 Mg Capsule) 1,334 mg PO TIDWM [facility] Last Admin: 10/06/24 15:21 Dose: 1,334 mg Glucose (Glucose Gel 15 Gm Gel..Gram.) 15 gm PO Q15M PRN; Protocol PRN Reason: per Hypoglycemia Standing Ord. Dextrose (D10) 250 mls @ 750 mls/hr IV Q15M PRN; Protocol PRN Reason: per Hypoglycemia Standing Ord. Vancomycin HCl 500 mg/ Sodium (Chloride) 110 mls @ 110 mls/hr IV MoWeFr [facility] Cefazolin Sodium/Dextrose (Ancef) 2 gm in 50 mls @ 100 mls/hr IV MOWEFR@1600 [facility] Last Infusion: 10/06/24 15:56 Dose: Infused Insulin Glargine (Insulin Glargine,Hum.Rec.Anlog 100 Unit/Ml 10 Ml Vial) 10 unit SUBCUT DAILY [facility] Last Admin: 10/06/24 09:02 Dose: 10 unit Insulin Human Lispro (Insulin Lispro 100 Unit/Ml 3 Ml Vial) 0 unit SUBCUT QIDACHS [facility]; Protocol Last Admin: 10/06/24 17:08 Dose: 4 unit Metoprolol Succinate (Metoprolol Succinate Er 100 Mg Tab.Er.24h) 100 mg PO DAILY [facility]; Protocol Last Admin: 10/06/24 08:48 Dose: 100 mg Multivitamins/Vitamin C (Multivitamin Tablet) 1 tab PO DAILY [facility] Last Admin: 10/06/24 08:48 Dose: 1 tab Omeprazole (Omeprazole 20 Mg Capsule.Dr) 20 mg PO DAILY@0630 [facility] Last Admin: 10/06/24 08:47 Dose: 20 mg Oxycodone HCl (Oxycodone Hcl Immed Release 5 Mg Tablet) 5 mg PO Q6H PRN PRN Reason: Pain, Severe (Pain Scale 7-10) Last Admin: 10/06/24 15:38 Dose: 5 mg Pharmacy Consult (Consult Rx Vancomycin Dosing) 1 each MISCELLANE DAILY PRN PRN Reason: Consult order Sodium Chloride (0.9 % Sodium Chloride Flush 3 Ml Syringe) 3 ml IVFLUSH QSHIFT [facility] Last Admin: 10/06/24 15:25 Dose: 3 ml Torsemide (Torsemide 20 Mg Tablet) 80 mg PO BID [facility]; Protocol Last Admin: 10/06/24 08:48 Dose: 80 mg Home Medications ?Medication ?Instructions ?Recorded ?Confirmed ?Last Taken ?Type insulin glargine 100 unit/mL (3 10 unit subcut DAILY 09/28/24 10/04/24 09/27/24 History mL) subcutaneous pen insulin lispro 100 unit/mL See Protocol subcut TIDAC 09/28/24 10/04/24 09/27/24 History subcutaneous pen (Humalog KwikPen (U-100) Insulin) melatonin 5 mg tablet 5 mg PO BEDTIME PRN insomnia 09/28/24 10/04/24 Unknown History Physical Exam Vital Signs: Vital Signs: Last Vital Signs Temp 99.1 F 10/06/24 15:39 Pulse 90 10/06/24 15:39 Resp 20 10/06/24 15:39 BP 102/55 L 10/06/24 15:39 Pulse Ox 94 10/06/24 15:39 O2 Del Method Nasal Cannula 10/06/24 15:39 O2 Flow Rate 4 10/06/24 15:39 Oxygen Flow Rate 2 10/03/24 18:18 BMI result Body Mass Index 34.1 Const: General: cooperative HEENT: Head: Yes normal to inspection Face and sinus: Yes normal facial exam Mouth: Normal oral and palatal mucosa present Teeth and gingiva: dentition normal Eyes: General: appearance normal, both eyes and all related structures Pupils: Equal, round and reactive pupils present Resp: Effort & Inspection: normal respiratory effort Cardio: Rate: regular rate Rhythm: regular rhythm GI: Palpation (GI): Soft to palpation and nontender : General: Yes no CVA tenderness Back/Spine/Pelvis: Back: no CVA tenderness Skin: General skin exam: no rashes or lesions noted Neuro: General: moves all extremities Cranial nerves: Yes Equal, round and reactive pupils present Extrem: General: Yes normal to inspection Psych: Appearance: grossly normal Results Labs 10/06/24 06:00 10/06/24 06:00 Labs: Short CBC 10/06/24 Range/Units 06:00 WBC 17.2 H (4.8-10.8) X10*3/uL Hgb 7.6 L (14.0-18.0) g/dl Hct 25.5 L (42.0-52.0) % Plt Count 176 (160-400) X10*3/uL BMP 10/06/24 06:00 Sodium 132 L Potassium 4.4 Chloride 100 Carbon Dioxide 22 BUN 44 H Creatinine 4.87 H* Calcium 8.0 L Microbiology Microbiology Results: Microbiology 10/04/24 20:07 Blood - Venous Blood Culture - Preliminary Staphylococcus aureus 10/04/24 20:07 Blood - Venous Blood Culture - Preliminary Staphylococcus aureus 10/05/24 09:15 Thoracentesis Fluid Gram Stain - Final 10/05/24 09:15 Thoracentesis Fluid Anaerobic Culture - Preliminary No growth to date. 10/05/24 09:15 Thoracentesis Fluid Body Fluid Culture - Preliminary No growth to date. 10/04/24 04:55 Blood - Venous Blood Culture - Preliminary No growth after 48 hours. 10/04/24 04:55 Blood - Venous Blood Culture - Preliminary No growth after 48 hours. 10/04/24 Unknown Urine clean catch - Clean Catch Midstream Urine Culture - Final Assessment and Plan (1) Pleural effusion, left: Status: Acute (2) Empyema: Status: Acute (3) ESRD on dialysis: Status: Acute (4) Bacteremia: Status: Acute Plan Probable source lung or leg (dont see specific concern) Would give IV Kefzol and Vancomycin per pharmacy dosing until blood culture sensitivities identified and then six weeks at dialysis post negative blood cultures ,Kefzol if MSSA or Vancomycin if MRSA. Check TTE.
[2024-10-06 19:03] LABS: Vancomycin Random 12.4 mcg/mL (15-20)
[2024-10-06 19:51] VITALS: BP 98/50; PULSE 81; RESP 16; TEMP 37.1; O2SAT 97
[2024-10-06] MEDS: Atorvastatin Calcium 40 MG TABLET PO (20:16)
[2024-10-06] MEDS: vancomycin HCL 500 MG in 0.9 % Sodium Chloride 100 ML 110 MG IV (20:18)
[2024-10-06 21:06] LABS: Glucose, Whole Blood 168 mg/dL (60-115)
[2024-10-06] MEDS: Albuterol Sulfate (0.083%) 2.5 MG/3 ML VIAL.NEB INHALE (22:17)
[2024-10-06 22:32] VITALS: PULSE 86; RESP 16; O2SAT 96
[2024-10-06 23:51] VITALS: BP 99/54; PULSE 81; RESP 16; TEMP 37.1; O2SAT 100
[2024-10-07 03:44] VITALS: BP 107/55; PULSE 81; RESP 16; TEMP 37.2; O2SAT 100
[2024-10-07] MEDS: oxyCODONE HCl Immed Release 5 MG TABLET PO ×3 (04:00→23:42)
[2024-10-07 08:00] VITALS: BP 114/58; PULSE 75; RESP 20; TEMP 36.7; O2SAT 99
[2024-10-07 08:21] LABS: Anion Gap 14 (12-20); Blood Urea Nitrogen 30 mg/dL (9-16); Calcium 7.8 mg/dL (8.4-10.2); Carbon Dioxide 21 mmol/L (22-29); Chloride 100 mmol/L (96-108); Creatinine Clr Calc Pharmacy 30.5; Estimated Glomerular Filt Rate 18; Glucose Fasting 111 mg/dL (60-99); Glucose Random 110 mg/dL (60-115); Potassium 3.6 mmol/L (3.3-5.1); Sodium 131 mmol/L (135-145)
[2024-10-07 08:26] LABS: Hematocrit 23.4 % (42.0-52.0); Hemoglobin 7.1 g/dl (14.0-18.0); Mean Corpuscular HGB Conc 30.3 g/dl (31.0-36.0); Mean Corpuscular Hemoglobin 28.1 pg (27.0-33.0); Mean Corpuscular Volume 92.5 fL (80.0-98.0); Mean Platelet Volume 11.2 fL (9.4-12.4); Platelet Count 167 X10*3/uL (160-400); Red Blood Count 2.53 X10*6/uL (4.60-5.80); Red Cell Distribution Width 16.6 % (11.0-16.0); White Blood Count 10.9 X10*3/uL (4.8-10.8)
--- NOTE | 2024-10-07 08:46 | P.PNNP_ITS ---
Subjective Subjective Date of Service: 10/07/24 Interval history: 44 y/o male with a medical history of ESRD on HD, HTN, HLD, polysubstance dependence, PVD. 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 Recurrent hospitalizations since August. Now ESRD pt 2/2 diabetic nephropathy/progression of underlying disease in addition to cocaine-induced nephropathy presented 10/03 evening with dyspnea x1 days No missed HD sessions. Per HD RN pt has been drinking significant fluid during outpatient HD sessions. blood cultures from 10/04 a.m. negative after 48 hours; 10/04 pm blood cultures +GPC 2 sets, 10/06 cultures no growth 24 hrs. large left pleural effusion, loculated, s/p thoracentesis 10/05 chest tube placement. Pt had echocardiogram that suggested pulmonic valve vegetation, HD catheter pulled 10/06 after his HD session. he states his breathing is comfortable now on room air denies chest pain, abdominal pain, flank pain denies tremors, twitching/abnormal movements denies itching, nausea, vomiting states he continues to urinate intermittently and denies pain/difficulty urinating, 150mL UOP in last 24 hours Physical Exam 2 Vital Signs: Vital Signs: Last Vital Signs Temp 98.9 F 10/07/24 03:44 Pulse 81 10/07/24 03:44 Resp 16 10/07/24 03:44 BP 107/55 L 10/07/24 03:44 Pulse Ox 100 10/07/24 03:44 O2 Del Method Nasal Cannula 10/07/24 03:44 O2 Flow Rate 4 10/07/24 03:44 Oxygen Flow Rate 2 10/03/24 18:18 BMI result Body Mass Index 34.1 Const: General: no acute distress, alert and awake Neck: Neck: Yes no JVD Resp: Effort & Inspection: normal respiratory effort and able to speak in complete sentences Auscultation: rhonchi Cardio: Jugular venous distension: no JVD Rate: regular rate Rhythm: r egular rhythm Heart sounds: S1 normal heart sound present and S2 normal heart sound present GI: Other: pitting edema across lower abdomen Palpation (GI): Soft to palpation and nontender Extrem: General: Yes edema (bilateral lower extremity edema- thighs, pitting) Objective Data Labs 10/07/24 06:23 10/07/24 06:23 Labs: Laboratory Results - last 24 hr 10/06/24 10/06/24 10/06/24 11:51 15:57 18:06 WBC RBC Hgb Hct MCV MCH MCHC RDW Plt Count MPV Absolute Nucleated RBC Nucleated RBC % (auto) Sodium Potassium Chloride Carbon Dioxide Anion Gap BUN Creatinine Estim Creat Clear Calc Estimated GFR POC Glucose 198 H 227 H Random Glucose Fasting Glucose Calcium Random Vancomycin 12.4 L 10/06/24 10/07/24 20:56 06:23 WBC 10.9 H RBC 2.53 L Hgb 7.1 L Hct 23.4 L MCV 92.5 MCH 28.1 MCHC 30.3 L RDW 16.6 H Plt Count 167 MPV 11.2 Absolute Nucleated RBC 0.000 Nucleated RBC % (auto) 0.0 Sodium 131 L Potassium 3.6 Chloride 100 Carbon Dioxide 21 L Anion Gap 14 BUN 30 H Creatinine 3.61 H Estim Creat Clear Calc 30.5 Estimated GFR 18 POC Glucose 168 H Random Glucose 110 Fasting Glucose 111 H Calcium 7.8 L Random Vancomycin Microbiology Microbiology Results: Microbiology 10/06/24 06:06 Blood - Venous Blood Culture - Preliminary No growth after 24 hours. 10/06/24 06:00 Blood - Venous Blood Culture - Preliminary No growth after 24 hours. 10/04/24 20:07 Blood - Venous Blood Culture - Preliminary Staphylococcus aureus 10/04/24 20:07 Blood - Venous Blood Culture - Preliminary Staphylococcus aureus 10/05/24 09:15 Thoracentesis Fluid Gram Stain - Final 10/05/24 09:15 Thoracentesis Fluid Anaerobic Culture - Preliminary No growth to date. 10/05/24 09:15 Thoracentesis Fluid Body Fluid Culture - Preliminary No growth to date. 10/04/24 04:55 Blood - Venous Blood Culture - Preliminary No growth after 48 hours. 10/04/24 04:55 Blood - Venous Blood Culture - Preliminary No growth after 48 hours. 10/04/24 Unknown Urine clean catch - Clean Catch Midstream Urine Culture - Final Procedures Date of Service Date of Service: 10/07/24 Assessment & Plan Assessment and plan (1) ESRD (end stage renal disease) on dialysis: Status: Acute (2) Acute hypoxemic respiratory failure: Status: Resolved (3) Anasarca: Status: Resolved Plan Pt with ESRD 2/2 natural progression of CKD 2/2 diabetic nephropathy and cocaine-induced nephropathy. Permcath removed on 10.06 due to vegetation on echo, plan to place temporary line for HD Friday morning H&H 7.1 & 23.4, 20,000u procrit today potassium within normal limits Calcium 7.8, 09/23 PTH 123, calcitriol 0.5mg daily Phosphorous 5.4 on 10/04, phoslo 1334mg PO TID with meals mild metabolic acidosis with serum bicarb 21 pt remains fluid overloaded, will continue to pull fluid as tolerated during HD, torsemide 80mg PO TID, 1.5L fluid restriction He will continue HD M,W,F as his outpatient schedule (HD tomorrow after temporary catheter inserted) Discussed with Dr Cagle Time Spent With Patient Time: Total time managing care of this patient today ____ minutes. Progress Note: Quality Stroke Does the patient have a stroke diagnosis?: No
[2024-10-07] MEDS: Buprenorphine/Naloxone 8/2 mg FILM 1 FILM SUBLINGUAL ×3 (08:59→20:45)
[2024-10-07] MEDS: Calcium Acetate 667 MG CAPSULE 1334 MG PO ×3 (08:59→16:48)
[2024-10-07] MEDS: Omeprazole 20 MG CAPSULE.DR PO (08:59)
[2024-10-07] MEDS: Torsemide 20 MG TABLET 80 MG PO (08:59)
[2024-10-07] MEDS: calcitrioL 0.25 MCG CAPSULE 0.5 MCG PO (08:59)
[2024-10-07] MEDS: Apixaban 5 MG TABLET PO ×2 (08:59→20:45)
[2024-10-07] MEDS: Metoprolol Succinate ER 100 MG TAB.ER.24H PO (08:59)
[2024-10-07] MEDS: Multivitamin TABLET 1 TAB PO (08:59)
[2024-10-07] MEDS: 0.9 % Sodium Chloride Flush 3 ML SYRINGE IVFLUSH ×3 (09:03→20:45)
[2024-10-07 09:04] LABS: Glucose, Whole Blood 94 mg/dL (60-115)
[2024-10-07] MEDS: Amiodarone HCL 200 MG TABLET PO (09:09)
[2024-10-07] MEDS: Insulin Glargine,Hum.rec.anlog 100 UNIT/ML 10 ML VIAL 10 UNIT SUBCUT (09:10)
--- NOTE | 2024-10-07 10:55 | P.PNTS_ITS ---
Subjective Subjective Date of Service: 10/07/24 Interval history: Patient feels improved this morning. Physical Exam Vital Signs: Vital Signs: Last Vital Signs Temp 98.1 F 10/07/24 08:00 Pulse 75 10/07/24 08:00 Resp 20 10/07/24 08:00 BP 114/58 L 10/07/24 08:00 Pulse Ox 99 10/07/24 08:00 O2 Del Method Nasal Cannula 10/07/24 08:00 O2 Flow Rate 4 10/07/24 08:00 Oxygen Flow Rate 2 10/03/24 18:18 BMI result Body Mass Index 34.1 Const: General: comfortable and alert Orientation/consciousness: patient oriented x3 Chest: Other: left chest tube in place, serosanguineous output in pleurvac, no air leak Resp: Effort & Inspection: normal respiratory effort, able to speak in com plete sentences and no use of accessory muscles Skin: General skin exam: no rashes or lesions noted Neuro: General: patient oriented x3 and moves all extremities Procedures Date of Service Date of Service: 10/07/24 Progress Note: A&P Assessment and plan (1) Pleural effusion, left: Status: Acute (2) ESRD on dialysis: Status: Acute Plan CT scan chest shows significant improvement and almost complete resolution of pleural effusion, no consolidated lung, almost 95% of lung up. Will place chest tube to water seal today. Repeat CXR in am. If output scant and CXR stable, will remove chest tube tomorrow. Patient comfortable with plan. Incentive spirometer encouraged. Time Spent With Patient Time: Total time managing care of this patient today ____ minutes. Quality Stroke Does the patient have a stroke diagnosis?: No VTE Prior VTE?: No VTE Risk Level:: Medical - moderate - high VTE Device Contraindication: Treatment Not Indicated VTE Drug Contraindication: N/A - Med Ordered
--- NOTE | 2024-10-07 11:06 | HO.PM.IMPN ---
Subjective Subjective Date of Service: 10/07/24 Interval History: f/u on sob d/t empayema, fluid overload, MRSA bacteremia. No more fever, mental study clear, repeat blood culture negative x 24 hrs Physical Exam Vital Signs: Vital Signs: Last Vital Signs Temp 98.1 F 10/07/24 08:00 Pulse 75 10/07/24 08:00 Resp 20 10/07/24 08:00 BP 114/58 L 10/07/24 08:00 Pulse Ox 99 10/07/24 08:00 O2 Del Method Nasal Cannula 10/07/24 08:00 O2 Flow Rate 4 10/07/24 08:00 Oxygen Flow Rate 2 10/03/24 18:18 BMI result Body Mass Index 34.1 Const: Other: General: AO X 2, no acute distress Resp: CTA bilateral CVS: S1,S2,RRR GI: +BS, NT, no distention Skin: No rash Neuro: motor grossly intact Psych: appropriate affect Objective Data Active Medications Acetaminophen (Acetaminophen 325 Mg Tablet) 975 mg PO Q6H PRN PRN Reason: Pain, Mild (Pain Scale 1-3), fever or headache Last Admin: 10/05/24 16:51 Dose: 975 mg Documented By: DENNY Acetaminophen (Acetaminophen Supp 650 Mg Supp.Rect) 650 mg IL Q6H PRN PRN Reason: Fever >101 Last Admin: 10/04/24 20:13 Dose: 650 mg Documented By: MARYBEL Albuterol Sulfate (Albuterol Sulfate (0.083%) 2.5 Mg/3 Ml Vial.Neb) 2.5 mg INHALE Q4H PRN PRN Reason: Shortness of Breath/Wheezing Last Admin: 10/06/24 22:17 Dose: 2.5 mg Documented By: EDEN Amiodarone HCl (Amiodarone Hcl 200 Mg Tablet) 200 mg PO DAILY [facility] Last Admin: 10/07/24 09:09 Dose: 200 mg Documented By: ALEJANDRO Apixaban (Apixaban 5 Mg Tablet) 5 mg PO BID [facility] Last Admin: 10/07/24 08:59 Dose: 5 mg Documented By: ALEJANDRO Atorvastatin Calcium (Atorvastatin Calcium 40 Mg Tablet) 40 mg PO BEDTIME [facility] Last Admin: 10/06/24 20:16 Dose: 40 mg Documented By: STEVE Buprenorphine/Naloxone (Buprenorphine/Naloxone 8/2 Mg Film) 1 film SUBLINGUAL TID [facility] Last Admin: 10/07/24 08:59 Dose: 1 film Documented By: ALEJANDRO Calcitriol (Calcitriol 0.25 Mcg Capsule) 0.5 mcg PO DAILY [facility] Last Admin: 10/07/24 08:59 Dose: 0.5 mcg Documented By: ALEJANDRO Calcium Acetate (Calcium Acetate 667 Mg Capsule) 1,334 mg PO TIDWM [facility] Last Admin: 10/07/24 08:59 Dose: 1,334 mg Documented By: ALEJANDRO Glucose (Glucose Gel 15 Gm Gel..Gram.) 15 gm PO Q15M PRN; Protocol PRN Reason: per Hypoglycemia Standing Ord. Dextrose (D10) 250 mls @ 750 mls/hr IV Q15M PRN; Protocol PRN Reason: per Hypoglycemia Standing Ord. Vancomycin HCl 500 mg/ Sodium (Chloride) 110 mls @ 110 mls/hr IV MoWeFr [facility] Cefazolin Sodium/Dextrose (Ancef) 2 gm in 50 mls @ 100 mls/hr IV MOWEFR@1600 [facility] Last Infusion: 10/06/24 15:56 Dose: Infused Documented By: STEFANI Insulin Glargine (Insulin Glargine,Hum.Rec.Anlog 100 Unit/Ml 10 Ml Vial) 10 unit SUBCUT DAILY [facility] Last Admin: 10/07/24 09:10 Dose: 10 unit Documented By: ALEJANDRO Insulin Human Lispro (Insulin Lispro 100 Unit/Ml 3 Ml Vial) 0 unit SUBCUT QIDACHS [facility]; Protocol Last Admin: 10/07/24 08:56 Dose: Not Given Documented By: ALEJANDRO Non-Admin Reason: No Insulin Coverage Metoprolol Succinate (Metoprolol Succinate Er 100 Mg Tab.Er.24h) 100 mg PO DAILY [facility]; Protocol Last Admin: 10/07/24 08:59 Dose: 100 mg Documented By: ALEJANDRO Multivitamins/Vitamin C (Multivitamin Tablet) 1 tab PO DAILY [facility] Last Admin: 10/07/24 08:59 Dose: 1 tab Documented By: ALEJANDRO Omeprazole (Omeprazole 20 Mg Capsule.Dr) 20 mg PO DAILY@0630 [facility] Last Admin: 10/07/24 08:59 Dose: 20 mg Documented By: ALEJANDRO Oxycodone HCl (Oxycodone Hcl Immed Release 5 Mg Tablet) 5 mg PO Q6H PRN PRN Reason: Pain, Severe (Pain Scale 7-10) Last Admin: 10/07/24 04:00 Dose: 5 mg Documented By: STEVE Pharmacy Consult (Consult Rx Vancomycin Dosing) 1 each MISCELLANE DAILY PRN PRN Reason: Consult order Sodium Chloride (0.9 % Sodium Chloride Flush 3 Ml Syringe) 3 ml IVFLUSH QSHIFT [facility] Last Admin: 10/07/24 09:03 Dose: 3 ml Documented By: ALEJANDRO Torsemide (Torsemide 20 Mg Tablet) 80 mg PO BID [facility]; Protocol Last Admin: 10/07/24 08:59 Dose: 80 mg Documented By: ALEJANDRO Labs 10/07/24 06:23 10/07/24 06:23 Labs: Laboratory Results - last 24 hr 10/06/24 10/06/24 10/06/24 11:51 15:57 18:06 MCV MCH MCHC RDW Plt Count MPV Absolute Nucleated RBC Nucleated RBC % (auto) Anion Gap Estim Creat Clear Calc Estimated GFR POC Glucose 198 H 227 H Random Glucose Fasting Glucose Calcium Random Vancomycin 12.4 L 10/06/24 10/07/24 10/07/24 20:56 06:23 08:53 MCV 92.5 MCH 28.1 MCHC 30.3 L RDW 16.6 H Plt Count 167 MPV 11.2 Absolute Nucleated RBC 0.000 Nucleated RBC % (auto) 0.0 Anion Gap 14 Estim Creat Clear Calc 30.5 Estimated GFR 18 POC Glucose 168 H 94 Random Glucose 110 Fasting Glucose 111 H Calcium 7.8 L Random Vancomycin Microbiology Microbiology Results: Microbiology 10/06/24 15:15 Catheter Tip Culture - Preliminary Catheter Tip - Other Culture in progress. 10/04/24 20:07 Blood Culture - Final Blood - Venous Methicillin Res Staph Aureus 10/04/24 20:07 Blood Culture - Final Blood - Venous Methicillin Res Staph Aureus 10/05/24 09:15 Gram Stain - Final Thoracentesis Fluid Anaerobic Culture - Preliminary No growth to date. Body Fluid Culture - Final No growth after 2 days 10/06/24 06:06 Blood Culture - Preliminary Blood - Venous No growth after 24 hours. 10/06/24 06:00 Blood Culture - Preliminary Blood - Venous No growth after 24 hours. 10/04/24 04:55 Blood Culture - Preliminary Blood - Venous No growth after 48 hours. 10/04/24 04:55 Blood Culture - Preliminary Blood - Venous No growth after 48 hours. Assessment and Plan (1) MRSA bacteremia: Status: Acute (2) Empyema: Status: Acute (3) ESRD on dialysis: Status: Acute Plan 44 y/o man with past medical history significant for ESRD on HD (MWF) here with sob and found to have fluid overload and large left fluid overload Shortness on breath, multifactorial: Fluid overload secondary to end-stage renal disease + large left pleural effusion s/p thoracentesis today 10/05 with minimal output --loculated -Continue Vanco, Kefzol for empayema -s/p IR placement of pig tail catheter -CT chest 10/06 show near resolution of effusion -CT surgery likely to remove tube later -thoracic surgery consult for empayema Gram positive Cocci bacteremia, PCR + MRSA -continue Vanco post dialysis - Kefzol and until cultures clear -ID consult pending -Echocardigram show pulmonic valve mass likely vegetation -repeat cultures today (10/06), negative at 24 -Dialysis catheter removed, tip culture pending -will need post dialysis vanco for 6 weeks once culture negative at 48 Paroxysmal atrial flutter. Continue amiodarone, and Eliquis Elevated troponin, chronic. No chest pain. Likely secondary to end-stage renal disease. History of drug abuse. Continue Suboxone. Type 2 diabetes mellitus. BG checks before meals at bedtime. Insulin sliding scale and Lantus. Diabetic diet Hyperlipidemia. Continue atorvastatin. Right BKA. no issues DVT prophylaxis: Eliquis Code status: Full Need for inpt: MRSA bacteremia plan discussed with pt and mother Quality Stroke Does the patient have a stroke diagnosis?: No VTE Prior VTE?: No VTE Risk Level:: Medical - moderate - high VTE Device Contraindication: Treatment Not Indicated VTE Drug Contraindication: N/A - Med Ordered
[2024-10-07 11:40] LABS: LDH Pleural Fluid 99; Total Protein Pleural Fluid 2.8
[2024-10-07 11:41] LABS: Glucose Pleural Fluid 125
[2024-10-07 11:42] LABS: pH Pleural Fluid 7.27
[2024-10-07 11:44] LABS: Glucose, Whole Blood 129 mg/dL (60-115)
[2024-10-07 11:47] VITALS: BP 106/53; PULSE 72; RESP 20; TEMP 36.3; O2SAT 100
[2024-10-07 15:47] VITALS: BP 112/56; PULSE 72; RESP 20; TEMP 36.3; O2SAT 96
[2024-10-07 16:38] LABS: Glucose, Whole Blood 140 mg/dL (60-115)
[2024-10-07 19:49] VITALS: BP 100/51; PULSE 72; RESP 16; TEMP 36.7; O2SAT 100
[2024-10-07 20:38] LABS: Glucose, Whole Blood 158 mg/dL (60-115)
[2024-10-07] MEDS: Insulin Lispro 100 UNIT/ML 3 ML VIAL SUBCUT (20:45)
[2024-10-07] MEDS: Atorvastatin Calcium 40 MG TABLET PO (20:45)
--- NOTE | 2024-10-07 22:04 | PC.RT ---
Patient declines to wear bedtime CPAP. Patient educated to call staff if he changes his mind or becomes SOB
[2024-10-07 23:43] VITALS: BP 99/50; PULSE 72; RESP 16; TEMP 36.9; O2SAT 99
[2024-10-08] VITALS (11 sets, daily range): BP systolic 98–126; BP diastolic 49–65; PULSE 70–100; RESP 13–20; TEMP 36.8–37.2; O2SAT 95–100
[2024-10-08] MEDS: Omeprazole 20 MG CAPSULE.DR PO (05:37)
[2024-10-08 07:17] LABS: Hematocrit 24.3 % (42.0-52.0); Hemoglobin 7.7 g/dl (14.0-18.0); Mean Corpuscular HGB Conc 31.7 g/dl (31.0-36.0); Mean Corpuscular Hemoglobin 28.5 pg (27.0-33.0); Mean Platelet Volume 11.7 fL (9.4-12.4); Platelet Count 193 X10*3/uL (160-400); Red Cell Distribution Width 16.4 % (11.0-16.0); White Blood Count 9.2 X10*3/uL (4.8-10.8)
[2024-10-08 07:28] LABS: Glucose, Whole Blood 115 mg/dL (60-115)
--- NOTE | 2024-10-08 08:20 | P.PNNP_ITS ---
Subjective Subjective Date of Service: 10/08/24 Interval history: 44 y/o male with a medical history of ESRD on HD, HTN, HLD, polysubstance dependence, PVD. 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 Recurrent hospitalizations since August. Now ESRD pt 2/2 diabetic nephropathy/progression of underlying disease in addition to cocaine-induced nephropathy presented 10/03 evening with dyspnea x1 days No missed HD sessions. Per HD RN pt has been drinking significant fluid during outpatient HD sessions. blood cultures from 10/04 a.m. negative after 48 hours; 10/04 pm blood cultures +GPC 2 sets, 10/06 cultures no growth 48 hrs. large left pleural effusion, loculated, s/p thoracentesis 10/05 chest tube placement. Pt had echocardiogram that suggested pulmonic valve vegetation, HD catheter pulled 10/06 after his HD session. catheter tip culture pending he states his breathing is comfortable now on room air denies chest pain, abdominal pain, flank pain denies tremors, twitching/abnormal movements denies itching, nausea, vomiting states he continues to urinate intermittently and denies pain/difficulty urinating, 150mL UOP in last 24 hours Physical Exam 2 Vital Signs: Vital Signs: Last Vital Signs Temp 98.7 F 10/08/24 07:18 Pulse 70 10/08/24 07:18 Resp 20 10/08/24 07:18 BP 118/56 L 10/08/24 07:18 Pulse Ox 95 10/08/24 07:18 O2 Del Method Room Air 10/08/24 07:18 O2 Flow Rate 4 10/08/24 03:35 Oxygen Flow Rate 2 10/03/24 18:18 BMI result Body Mass Index 34.1 Const: General: no acute distress, alert and awake Neck: Neck: Yes no JVD Resp: Effort & Inspection: normal respiratory effort and able to speak in complete sentences Auscultation: rhonchi Cardio: Jugular venous distension: no JVD Rate: regular rate Rhythm: r egular rhythm Heart sounds: S1 normal heart sound present and S2 normal heart sound present GI: Other: pitting edema across lower abdomen Palpation (GI): Soft to palpation and nontender Extrem: General: Yes edema (bilateral lower extremity edema- thighs, pitting) Objective Data Labs 10/08/24 06:22 10/07/24 06:23 Labs: Laboratory Results - last 24 hr 10/05/24 10/07/24 10/07/24 09:15 11:19 15:53 WBC RBC Hgb Hct MCV MCH MCHC RDW Plt Count MPV Absolute Nucleated RBC Nucleated RBC % (auto) POC Glucose 129 H 140 H Pleural pH 7.27 Pleural Total Protein 2.8 Pleural LDH 99 Pleural Glucose 125 10/07/24 10/08/24 10/08/24 20:26 06:22 07:24 WBC 9.2 RBC 2.70 L Hgb 7.7 L Hct 24.3 L MCV 90.0 MCH 28.5 MCHC 31.7 RDW 16.4 H Plt Count 193 MPV 11.7 Absolute Nucleated RBC 0.000 Nucleated RBC % (auto) 0.0 POC Glucose 158 H 115 Pleural pH Pleural Total Protein Pleural LDH Pleural Glucose Microbiology Microbiology Results: Microbiology 10/06/24 15:15 Catheter Tip - Other Catheter Tip Culture - Preliminary Culture in progress. 10/05/24 09:15 Thoracentesis Fluid Gram Stain - Final 10/05/24 09:15 Thoracentesis Fluid Anaerobic Culture - Preliminary No growth to date. 10/05/24 09:15 Thoracentesis Fluid Body Fluid Culture - Final No growth after 2 days 10/06/24 06:06 Blood - Venous Blood Culture - Preliminary No growth after 48 hours. 10/06/24 06:00 Blood - Venous Blood Culture - Preliminary No growth after 48 hours. 10/04/24 20:07 Blood - Venous Blood Culture - Final Methicillin Res Staph Aureus 10/04/24 20:07 Blood - Venous Blood Culture - Final Methicillin Res Staph Aureus 10/04/24 04:55 Blood - Venous Blood Culture - Preliminary No growth after 48 hours. 10/04/24 04:55 Blood - Venous Blood Culture - Preliminary No growth after 48 hours. 10/04/24 Unknown Urine clean catch - Clean Catch Midstream Urine Culture - Final Procedures Date of Service Date of Service: 10/08/24 Assessment & Plan Assessment and plan (1) ESRD (end stage renal disease) on dialysis: Status: Acute (2) Acute hypoxemic respiratory failure: Status: Resolved (3) Anasarca: Status: Resolved Plan Pt with ESRD 2/2 natural progression of CKD 2/2 diabetic nephropathy and cocaine-induced nephropathy. Permcath removed on 12.4 due to vegetation on echo, pt has temporary cath placement scheduled today with IR, then will get HD H&H 7.7 & 24.3, 20,000u procrit last administered 10/07 Calcium 7.8, 09/23 PTH 123, calcitriol 0.5mg daily Phosphorous 5.4 on 10/04, phoslo 1334mg PO TID with meals mild metabolic acidosis with serum bicarb 21 pt remains fluid overloaded, will continue to pull fluid as tolerated during HD, torsemide 80mg PO TID, 1.5L fluid restriction He will continue HD M,W,F as his outpatient schedule Discussed with Dr Cagle Time Spent With Patient Time: Total time managing care of this patient today ____ minutes. Progress Note: Quality Stroke Does the patient have a stroke diagnosis?: No
--- NOTE | 2024-10-08 09:09 | PM.PNTS ---
Subjective Subjective Date of Service: 10/08/24 Interval history: No new respiratory issues. Chest tube with minimal mole output over the last 24 hours. No air leak on water seal. Chest tube uneventfully removed with the occlusive dressing. Well-tolerated. Physical Exam Vital Signs: Vital Signs: Last Vital Signs Temp 98.7 F 10/08/24 07:18 Pulse 70 10/08/24 07:18 Resp 20 10/08/24 07:18 BP 118/56 L 10/08/24 07:18 Pulse Ox 95 10/08/24 07:18 O2 Del Method Room Air 10/08/24 07:18 O2 Flow Rate 4 10/08/24 03:35 Oxygen Flow Rate 2 10/03/24 18:18 BMI result Body Mass Index 34.1 Procedures Date of Service Date of Service: 10/08/24 Progress Note: A&P Assessment and plan (1) Pleural effusion, left: Status: Acute Plan Post chest tube removal chest x-ray within normal limits. At present no acute thoracic surgical problems. We will follow up p.r.n.. Time Spent With Patient Time: Total time managing care of this patient today ____ minutes. Quality Stroke Does the patient have a stroke diagnosis?: No VTE Prior VTE?: No VTE Risk Level:: Medical - moderate - high VTE Device Contraindication: Treatment Not Indicated VTE Drug Contraindication: N/A - Med Ordered
[2024-10-08] MEDS: calcitrioL 0.25 MCG CAPSULE 0.5 MCG PO (09:57)
[2024-10-08] MEDS: Buprenorphine/Naloxone 8/2 mg FILM 1 FILM SUBLINGUAL ×3 (09:58→21:09)
[2024-10-08] MEDS: Insulin Glargine,Hum.rec.anlog 100 UNIT/ML 10 ML VIAL 10 UNIT SUBCUT (09:58)
[2024-10-08] MEDS: Multivitamin TABLET 1 TAB PO (09:58)
[2024-10-08] MEDS: Torsemide 20 MG TABLET 80 MG PO ×2 (09:58→21:02)
[2024-10-08] MEDS: Amiodarone HCL 200 MG TABLET PO (09:58)
[2024-10-08] MEDS: Metoprolol Succinate ER 100 MG TAB.ER.24H PO (09:58)
[2024-10-08] MEDS: Apixaban 5 MG TABLET PO ×2 (09:58→21:02)
[2024-10-08] MEDS: Calcium Acetate 667 MG CAPSULE 1334 MG PO ×2 (09:58→11:58)
--- NOTE | 2024-10-08 10:16 | MHC.CM.PN ---
Per ROUNDS discussion, Patient is not yet medically cleared for dc (new HD line today and needs arrangements made by [facility] for Patient to receive IV Vanco while at community HD); home/resume services is the plan and CM will continue to follow.
[2024-10-08] MEDS: 0.9 % Sodium Chloride Flush 3 ML SYRINGE IVFLUSH ×2 (10:26→15:15)
--- NOTE | 2024-10-08 10:53 | MHC.CLN ---
F/U PO INTAKE 50-100% DIET RX: 2000DM CARDIAC LOW PHOS LOW K+-APPROPRIATE RECEIVING ENSURE MAX BID TO PROVIDE 300KCALS, 60G PROTEIN FOR [employer] PO INTAKE AND ENCOURAGE SUPPLEMENT
[2024-10-08 11:39] LABS: Glucose, Whole Blood 154 mg/dL (60-115)
[2024-10-08] MEDS: Insulin Lispro 100 UNIT/ML 3 ML VIAL SUBCUT (11:58)
[2024-10-08] MEDS: oxyCODONE HCl Immed Release 5 MG TABLET PO ×2 (12:03→21:22)
--- NOTE | 2024-10-08 12:12 | HO.PM.IMPN ---
Subjective Subjective Date of Service: 10/08/24 Interval History: f/u on sob d/t empayema, fluid overload, MRSA bacteremia. No more fever, mental study clear, repeat blood culture negative x 24 hrs Physical Exam Vital Signs: Vital Signs: Last Vital Signs Temp 98.5 F 10/08/24 10:58 Pulse 70 10/08/24 10:58 Resp 20 10/08/24 10:58 BP 126/58 L 10/08/24 10:58 Pulse Ox 100 10/08/24 10:58 O2 Del Method Nasal Cannula 10/08/24 10:58 O2 Flow Rate 4 10/08/24 10:58 Oxygen Flow Rate 2 10/03/24 18:18 BMI result Body Mass Index 34.1 Const: Other: General: AO X 2, no acute distress Resp: CTA bilateral CVS: S1,S2,RRR GI: +BS, NT, no distention Skin: No rash Neuro: motor grossly intact Psych: appropriate affect Objective Data Active Medications Acetaminophen (Acetaminophen 325 Mg Tablet) 975 mg PO Q6H PRN PRN Reason: Pain, Mild (Pain Scale 1-3), fever or headache Last Admin: 10/05/24 16:51 Dose: 975 mg Documented By: DENNY Acetaminophen (Acetaminophen Supp 650 Mg Supp.Rect) 650 mg AL Q6H PRN PRN Reason: Fever >101 Last Admin: 10/04/24 20:13 Dose: 650 mg Documented By: MARYBEL Albuterol Sulfate (Albuterol Sulfate (0.083%) 2.5 Mg/3 Ml Vial.Neb) 2.5 mg INHALE Q4H PRN PRN Reason: Shortness of Breath/Wheezing Last Admin: 10/06/24 22:17 Dose: 2.5 mg Documented By: EDEN Amiodarone HCl (Amiodarone Hcl 200 Mg Tablet) 200 mg PO DAILY [facility] Last Admin: 10/08/24 09:58 Dose: 200 mg Documented By: ERIK Apixaban (Apixaban 5 Mg Tablet) 5 mg PO BID [facility] Last Admin: 10/08/24 09:58 Dose: 5 mg Documented By: ERIK Atorvastatin Calcium (Atorvastatin Calcium 40 Mg Tablet) 40 mg PO BEDTIME [facility] Last Admin: 10/07/24 20:45 Dose: 40 mg Documented By: STEVE Buprenorphine/Naloxone (Buprenorphine/Naloxone 8/2 Mg Film) 1 film SUBLINGUAL TID [facility] Last Admin: 10/08/24 09:58 Dose: 1 film Documented By: ERIK Calcitriol (Calcitriol 0.25 Mcg Capsule) 0.5 mcg PO DAILY [facility] Last Admin: 10/08/24 09:57 Dose: 0.5 mcg Documented By: ERIK Calcium Acetate (Calcium Acetate 667 Mg Capsule) 1,334 mg PO TIDWM [facility] Last Admin: 10/08/24 11:58 Dose: 1,334 mg Documented By: TRIHS Glucose (Glucose Gel 15 Gm Gel..Gram.) 15 gm PO Q15M PRN; Protocol PRN Reason: per Hypoglycemia Standing Ord. Dextrose (D10) 250 mls @ 750 mls/hr IV Q15M PRN; Protocol PRN Reason: per Hypoglycemia Standing Ord. Vancomycin HCl 500 mg/ Sodium (Chloride) 110 mls @ 110 mls/hr IV MoWeFr [facility] Cefazolin Sodium/Dextrose (Ancef) 2 gm in 50 mls @ 100 mls/hr IV MOWEFR@1600 [facility] Last Infusion: 10/06/24 15:56 Dose: Infused Documented By: STEFANI Insulin Glargine (Insulin Glargine,Hum.Rec.Anlog 100 Unit/Ml 10 Ml Vial) 10 unit SUBCUT DAILY [facility] Last Admin: 10/08/24 09:58 Dose: 10 unit Documented By: ERIK Insulin Human Lispro (Insulin Lispro 100 Unit/Ml 3 Ml Vial) 0 unit SUBCUT QIDACHS [facility]; Protocol Last Admin: 10/08/24 11:58 Dose: 2 unit Documented By: TRISH Metoprolol Succinate (Metoprolol Succinate Er 100 Mg Tab.Er.24h) 100 mg PO DAILY [facility]; Protocol Last Admin: 10/08/24 09:58 Dose: 100 mg Documented By: ERIK Multivitamins/Vitamin C (Multivitamin Tablet) 1 tab PO DAILY [facility] Last Admin: 10/08/24 09:58 Dose: 1 tab Documented By: ERIK Omeprazole (Omeprazole 20 Mg Frida.) 20 mg PO DAILY@0630 [facility] Last Admin: 10/08/24 05:37 Dose: 20 mg Documented By: STEVE Oxycodone HCl (Oxycodone Hcl Immed Release 5 Mg Tablet) 5 mg PO Q6H PRN PRN Reason: Pain, Severe (Pain Scale 7-10) Last Admin: 10/08/24 12:03 Dose: 5 mg Documented By: TRISH Pharmacy Consult (Consult Rx Vancomycin Dosing) 1 each MISCELLANE DAILY PRN PRN Reason: Consult order Sodium Chloride (0.9 % Sodium Chloride Flush 3 Ml Syringe) 3 ml IVFLUSH QSHIFT [facility] Last Admin: 10/08/24 10:26 Dose: 3 ml Documented By: TRISH Torsemide (Torsemide 20 Mg Tablet) 80 mg PO BID [facility]; Protocol Last Admin: 10/08/24 09:58 Dose: 80 mg Documented By: ERIK Labs 10/08/24 06:22 10/07/24 06:23 Labs: Laboratory Results - last 24 hr 10/07/24 10/07/24 10/08/24 15:53 20:26 06:22 MCV 90.0 MCH 28.5 MCHC 31.7 RDW 16.4 H Plt Count 193 MPV 11.7 Absolute Nucleated RBC 0.000 Nucleated RBC % (auto) 0.0 POC Glucose 140 H 158 H 10/08/24 10/08/24 07:24 11:29 MCV MCH MCHC RDW Plt Count MPV Absolute Nucleated RBC Nucleated RBC % (auto) POC Glucose 115 154 H Microbiology Microbiology Results: Microbiology 10/06/24 15:15 Catheter Tip Culture - Preliminary Catheter Tip - Other Culture in progress. 10/05/24 09:15 Gram Stain - Final Thoracentesis Fluid Anaerobic Culture - Preliminary No growth to date. Body Fluid Culture - Final No growth after 2 days 10/06/24 06:06 Blood Culture - Preliminary Blood - Venous No growth after 48 hours. 10/06/24 06:00 Blood Culture - Preliminary Blood - Venous No growth after 48 hours. 10/04/24 20:07 Blood Culture - Final Blood - Venous Methicillin Res Staph Aureus 10/04/24 20:07 Blood Culture - Final Blood - Venous Methicillin Res Staph Aureus Assessment and Plan (1) MRSA bacteremia: Status: Acute (2) Empyema: Status: Acute (3) ESRD on dialysis: Status: Acute Plan 44 y/o man with past medical history significant for ESRD on HD (MWF) here with sob and found to have fluid overload and large left fluid overload Shortness on breath, multifactorial: Fluid overload secondary to end-stage renal disease + large left pleural effusion s/p thoracentesis today 10/05 with minimal output --loculated -Continue Vanco, Kefzol for empayema -s/p IR placement of pig tail catheter -CT chest 10/06 show near resolution of effusion -CT surgery has removed pigtail cath Gram positive Cocci bacteremia, PCR + MRSA -continue Vanco post dialysis -DC Kefzol since repeat culture negative x 48 hrs, and continue vanco post dialysis -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 Continue amiodarone, and Eliquis Elevated troponin, chronic. No chest pain. Likely secondary to end-stage renal disease. History of drug abuse. Continue Suboxone. Type 2 diabetes mellitus. -BG checks before meals at bedtime. - Insulin sliding scale and Lantus. Diabetic diet Hyperlipidemia. Continue atorvastatin. Right BKA. no issues DVT prophylaxis: Eliquis Code status: Full Need for inpt: MRSA bacteremia plan discussed with pt and mother Possible dc later today Quality Stroke Does the patient have a stroke diagnosis?: No VTE Prior VTE?: No VTE Risk Level:: Medical - moderate - high VTE Device Contraindication: Treatment Not Indicated VTE Drug Contraindication: N/A - Med Ordered
[2024-10-08 19:04] LABS: Glucose, Whole Blood 121 mg/dL (60-115)
[2024-10-08 19:25] LABS: Vancomycin Random 11.1 mcg/mL (15-20)
[2024-10-08 20:29] LABS: Glucose, Whole Blood 126 mg/dL (60-115)
[2024-10-08] MEDS: Atorvastatin Calcium 40 MG TABLET PO (21:07)
[2024-10-08] MEDS: ceFAZolin Sodium/Dextrose,Iso 2 GM/50 ML PIGGYBACK IV (21:08)
[2024-10-08] MEDS: vancomycin HCL 500 MG in 0.9 % Sodium Chloride 100 ML 110 MG IV (22:06)
[2024-10-08] MEDS: Albuterol Sulfate (0.083%) 2.5 MG/3 ML VIAL.NEB INHALE (23:21)
[2024-10-09] VITALS (8 sets, daily range): BP systolic 94–132; BP diastolic 51–62; PULSE 73–77; RESP 18–20; TEMP 36.2–37.7; O2SAT 94–100
--- NOTE | 2024-10-09 03:33 | HO.SKINPHOTO ---
Location: buttock/coccyx area Category: unstageable Stage: Length: Width: Depth: cm Location: Category: Stage: Length: Width: Depth: cm Location: Category: Stage: Length: Width: Depth: cm Location: Category: Stage: Length: Width: Depth: cm Location: Category: Stage: Length: Width: Depth: cm Location: Category: Stage: Length: Width: Depth: cm
[2024-10-09] MEDS: oxyCODONE HCl Immed Release 5 MG TABLET PO ×2 (05:31→20:59)
[2024-10-09] MEDS: Omeprazole 20 MG CAPSULE.DR PO (05:31)
[2024-10-09 07:56] LABS: Glucose, Whole Blood 152 mg/dL (60-115)
[2024-10-09] MEDS: Apixaban 5 MG TABLET PO ×2 (07:59→21:01)
[2024-10-09] MEDS: Torsemide 20 MG TABLET 80 MG PO (07:59)
[2024-10-09] MEDS: calcitrioL 0.25 MCG CAPSULE 0.5 MCG PO (07:59)
[2024-10-09] MEDS: Buprenorphine/Naloxone 8/2 mg FILM 1 FILM SUBLINGUAL ×3 (07:59→21:01)
[2024-10-09] MEDS: Metoprolol Succinate ER 100 MG TAB.ER.24H PO (08:00)
[2024-10-09] MEDS: Multivitamin TABLET 1 TAB PO (08:00)
[2024-10-09] MEDS: Insulin Lispro 100 UNIT/ML 3 ML VIAL SUBCUT ×3 (08:00→21:01)
[2024-10-09] MEDS: Amiodarone HCL 200 MG TABLET PO (08:00)
[2024-10-09] MEDS: Insulin Glargine,Hum.rec.anlog 100 UNIT/ML 10 ML VIAL 10 UNIT SUBCUT (08:01)
[2024-10-09] MEDS: 0.9 % Sodium Chloride Flush 3 ML SYRINGE IVFLUSH ×2 (08:01→16:50)
[2024-10-09] MEDS: Calcium Acetate 667 MG CAPSULE 1334 MG PO ×3 (08:16→16:49)
[2024-10-09 11:44] LABS: Glucose, Whole Blood 191 mg/dL (60-115)
--- NOTE | 2024-10-09 12:24 | P.PNIM_ITS ---
Subjective Subjective Date of Service: 10/09/24 Interval History: f/u on sob d/t empayema, fluid overload, MRSA bacteremia. No more fever, mental study clear, repeat blood culture negative x 248 hrs has a temporally dialysis Cather inserted the left neck 10/08 Physical Exam 2 Vital Signs: Vital Signs: Last Vital Signs Temp 99.9 F 10/09/24 11:53 Pulse 75 10/09/24 11:53 Resp 18 10/09/24 11:53 BP 94/62 10/09/24 11:53 Pulse Ox 95 10/09/24 11:53 O2 Del Method Nasal Cannula 10/09/24 11:53 O2 Flow Rate 3 10/09/24 11:53 Oxygen Flow Rate 2 10/03/24 18:18 BMI result Body Mass Index 34.1 Const: Other: General: AO X 2, no acute distress Resp: CTA bilateral CVS: S1,S2,RRR GI: +BS, NT, no distention Skin: No rash Neuro: motor grossly intact Psych: appropriate affect Objective Data Active Medications Acetaminophen (Acetaminophen 325 Mg Tablet) 975 mg PO Q6H PRN PRN Reason: Pain, Mild (Pain Scale 1-3), fever or headache Last Admin: 10/05/24 16:51 Dose: 975 mg Documented By: DENNY Acetaminophen (Acetaminophen Supp 650 Mg Supp.Rect) 650 mg IN Q6H PRN PRN Reason: Fever >101 Last Admin: 10/04/24 20:13 Dose: 650 mg Documented By: MARYBEL Albuterol Sulfate (Albuterol Sulfate (0.083%) 2.5 Mg/3 Ml Vial.Neb) 2.5 mg INHALE Q4H PRN PRN Reason: Shortness of Breath/Wheezing Last Admin: 10/08/24 23:21 Dose: 2.5 mg Documented By: DUKE Amiodarone HCl (Amiodarone Hcl 200 Mg Tablet) 200 mg PO DAILY [facility] Last Admin: 10/09/24 08:00 Dose: 200 mg Documented By: MIGUEL Apixaban (Apixaban 5 Mg Tablet) 5 mg PO BID [facility] Last Admin: 10/09/24 07:59 Dose: 5 mg Documented By: MIGUEL Atorvastatin Calcium (Atorvastatin Calcium 40 Mg Tablet) 40 mg PO BEDTIME [facility] Last Admin: 10/08/24 21:07 Dose: 40 mg Documented By: FACUNDO Buprenorphine/Naloxone (Buprenorphine/Naloxone 8/2 Mg Film) 1 film SUBLINGUAL TID [facility] Last Admin: 10/09/24 07:59 Dose: 1 film Documented By: MIGUEL Calcitriol (Calcitriol 0.25 Mcg Capsule) 0.5 mcg PO DAILY [facility] Last Admin: 10/09/24 07:59 Dose: 0.5 mcg Documented By: MIGUEL Calcium Acetate (Calcium Acetate 667 Mg Capsule) 1,334 mg PO TIDWM [facility] Last Admin: 10/09/24 11:48 Dose: 1,334 mg Documented By: MIGUEL Glucose (Glucose Gel 15 Gm Gel..Gram.) 15 gm PO Q15M PRN; Protocol PRN Reason: per Hypoglycemia Standing Ord. Dextrose (D10) 250 mls @ 750 mls/hr IV Q15M PRN; Protocol PRN Reason: per Hypoglycemia Standing Ord. Vancomycin HCl 500 mg/ Sodium (Chloride) 110 mls @ 110 mls/hr IV MoWeFr [facility] Cefazolin Sodium/Dextrose (Ancef) 2 gm in 50 mls @ 100 mls/hr IV MoWeFr@2000 [facility] Last Infusion: 10/08/24 22:45 Dose: Infused Documented By: FACUNDO Insulin Glargine (Insulin Glargine,Hum.Rec.Anlog 100 Unit/Ml 10 Ml Vial) 10 unit SUBCUT DAILY [facility] Last Admin: 10/09/24 08:01 Dose: 10 unit Documented By: MIGUEL Insulin Human Lispro (Insulin Lispro 100 Unit/Ml 3 Ml Vial) 0 unit SUBCUT QIDACHS [facility]; Protocol Last Admin: 10/09/24 11:48 Dose: 2 unit Documented By: MIGUEL Metoprolol Succinate (Metoprolol Succinate Er 100 Mg Tab.Er.24h) 100 mg PO DAILY [facility]; Protocol Last Admin: 10/09/24 08:00 Dose: 100 mg Documented By: MIGUEL Multivitamins/Vitamin C (Multivitamin Tablet) 1 tab PO DAILY [facility] Last Admin: 10/09/24 08:00 Dose: 1 tab Documented By: MIGUEL Omeprazole (Omeprazole 20 Mg Frida.) 20 mg PO DAILY@0630 [facility] Last Admin: 10/09/24 05:31 Dose: 20 mg Documented By: JACINTA Pharmacy Consult (Consult Rx Vancomycin Dosing) 1 each MISCELLANE DAILY PRN PRN Reason: Consult order Sodium Chloride (0.9 % Sodium Chloride Flush 3 Ml Syringe) 3 ml IVFLUSH QSHIFT [facility] Last Admin: 10/09/24 08:01 Dose: 3 ml Documented By: MIGUEL Torsemide (Torsemide 20 Mg Tablet) 80 mg PO BID [facility]; Protocol Last Admin: 10/09/24 07:59 Dose: 80 mg Documented By: MIGUEL Labs 10/08/24 06:22 10/07/24 06:23 Labs: Laboratory Results - last 24 hr 10/08/24 10/08/24 10/08/24 19:00 19:04 20:22 POC Glucose 121 H 126 H Random Vancomycin 11.1 L 10/09/24 10/09/24 07:49 11:39 POC Glucose 152 H 191 H Random Vancomycin Microbiology Microbiology Results: Microbiology 10/05/24 09:15 Gram Stain - Final Thoracentesis Fluid Anaerobic Culture - Preliminary No growth to date. Body Fluid Culture - Final No growth after 2 days 10/06/24 15:15 Catheter Tip Culture - Preliminary Catheter Tip - Other Staphylococcus aureus 10/04/24 04:55 Blood Culture - Final Blood - Venous No growth after 5 days. 10/04/24 04:55 Blood Culture - Final Blood - Venous No growth after 5 days. 10/06/24 06:06 Blood Culture - Preliminary Blood - Venous No growth after 48 hours. 10/06/24 06:00 Blood Culture - Preliminary Blood - Venous No growth after 48 hours. Assessment and Plan (1) MRSA bacteremia: Status: Acute (2) Empyema: Status: Acute (3) ESRD on dialysis: Status: Acute Plan 44 y/o man with past medical history significant for ESRD on HD (MWF) here with sob and found to have fluid overload and large left fluid overload Shortness on breath, multifactorial: Fluid overload secondary to end-stage renal disease + large left pleural effusion s/p thoracentesis today 10/05 with minimal output --loculated -Continue Vanco, Kefzol for empayema -s/p IR placement of pig tail catheter -CT chest 10/06 show near resolution of effusion -CT surgery has removed pigtail cath MRSA bacteremia -continue Vanco post dialysis, pharmacy to adjust level as needed -DC Kefzol since repeat culture negative x 48 hrs, and continue vanco post dialysis -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 Continue amiodarone, and Eliquis Elevated troponin, chronic. No chest pain. Likely secondary to end-stage renal disease. History of drug abuse. Continue Suboxone. Type 2 diabetes mellitus. -BG checks before meals at bedtime. - Insulin sliding scale and Lantus. Diabetic diet Hyperlipidemia. Continue atorvastatin. Right BKA. no issues DVT prophylaxis: Eliquis Code status: Full Need for inpt: MRSA bacteremia plan discussed with pt and mother Possible dc Friday after permanent catheter insertion, plan discussed with mother over the phone Quality Stroke Does the patient have a stroke diagnosis?: No VTE Prior VTE?: No VTE Risk Level:: Medical - moderate - high VTE Device Contraindication: Treatment Not Indicated VTE Drug Contraindication: N/A - Med Ordered
[2024-10-09 16:38] LABS: Glucose, Whole Blood 141 mg/dL (60-115)
[2024-10-09 20:12] LABS: Glucose, Whole Blood 160 mg/dL (60-115)
[2024-10-09 20:43] LABS: MANUAL DIFF FLAG NO
[2024-10-09 20:45] LABS: Basophils Percent Auto 0.4 % (0-2); Eosinophils Absolute Auto 0.3 X10*3/uL (0.0-0.4); Eosinophils Percent Auto 3.9 % (0-4); Hematocrit 23.2 % (42.0-52.0); Hemoglobin 7.4 g/dl (14.0-18.0); Imm Gran Abs Auto 0.04 X10*3/uL (0.00-0.03); Imm Gran Pct Auto 0.5 % (0.0-0.4); Lymphocytes Absolute Auto 1.2 X10*3/uL (1.2-4.9); Lymphocytes Percent Auto 13.7 % (20-40); Mean Corpuscular HGB Conc 31.9 g/dl (31.0-36.0); Mean Corpuscular Hemoglobin 28.2 pg (27.0-33.0); Mean Corpuscular Volume 88.5 fL (80.0-98.0); Mean Platelet Volume 10.7 fL (9.4-12.4); Monocytes Absolute Auto 1.2 X10*3/uL (0.1-1.2); Monocytes Percent Auto 13.7 % (2-11); Neutrophils Absolute Auto 5.8 x10*3/uL (2.0-8.3); Neutrophils Percent Auto 67.8 % (45-73); Platelet Count 230 X10*3/uL (160-400); Red Blood Count 2.62 X10*6/uL (4.60-5.80); Red Cell Distribution Width 16.4 % (11.0-16.0); White Blood Count 8.5 X10*3/uL (4.8-10.8)
[2024-10-09 20:49] LABS: VBG Base Excess -0.7 mmol/L; VBG HCO3 25 mmol/L (22-26); VBG pCO2 48 mmHg; VBG pH 7.32 (7.32-7.43); VBG pO2 49 mmHg
[2024-10-09 20:50] LABS: Venous Blood Gas Refer to POC result
[2024-10-09] MEDS: Atorvastatin Calcium 40 MG TABLET PO (21:01)
[2024-10-09 21:06] LABS: Albumin Level 2.2 g/dL (3.5-5.0); Alkaline Phosphatase 199 U/L (39-117); Anion Gap 11 (12-20); Aspartate Amino Transferase 50 U/L (5-37); Bilirubin Total 0.2 mg/dL (0.0-1.0); Blood Urea Nitrogen 35 mg/dL (9-16); Calcium 7.9 mg/dL (8.4-10.2); Carbon Dioxide 23 mmol/L (22-29); Chloride 97 mmol/L (96-108); Creatinine Clr Calc Pharmacy 28.6; Estimated Glomerular Filt Rate 17; Glucose Random 199 mg/dL (60-115); Magnesium 1.8 mg/dL (1.6-2.6); Potassium 3.4 mmol/L (3.3-5.1); Sodium 128 mmol/L (135-145); Total Protein 5.6 g/dL (6.5-8.0)
[2024-10-09 21:17] LABS: Alanine Aminotransferase < 6 U/L (0-40)
[2024-10-10] VITALS (7 sets, daily range): BP systolic 90–130; BP diastolic 50–62; PULSE 69–74; RESP 16–20; TEMP 36.2–37; O2SAT 95–98
[2024-10-10] MEDS: oxyCODONE HCl Immed Release 5 MG TABLET PO ×3 (04:19→23:03)
[2024-10-10] MEDS: Omeprazole 20 MG CAPSULE.DR PO (05:42)
[2024-10-10 07:40] LABS: Appearance Urine Clear; Color Urine Yellow; Glucose Urine UA 100 mg/dL (Negative); Leukocyte Esterase Urine Moderate (2+) (Negative); Nitrite Urine Negative (Negative); PH 5.5 (5.0-9.0); UMIC TRIGGER UACC YES; Urine Blood Trace (Negative); Urine Ketones Negative (Negative); Urine Protein 300 (3+) mg/dL (Neg-Trace)
[2024-10-10 07:58] LABS: Bacteria Urine None Seen (None Seen); Hyaline Casts Urine 0-2 /LPF (0-2); RBC Urine 0-2 /HPF (0-2); Squamous Epithelial Cell Urine 0-2 /HPF (0-2); UACC Culture Trigger YES
[2024-10-10 08:19] LABS: Glucose, Whole Blood 123 mg/dL (60-115)
[2024-10-10] MEDS: Metoprolol Succinate ER 100 MG TAB.ER.24H PO (08:19)
[2024-10-10] MEDS: Multivitamin TABLET 1 TAB PO (08:19)
[2024-10-10] MEDS: Apixaban 5 MG TABLET PO ×2 (08:19→20:52)
[2024-10-10] MEDS: Insulin Glargine,Hum.rec.anlog 100 UNIT/ML 10 ML VIAL 10 UNIT SUBCUT (08:19)
[2024-10-10] MEDS: Calcium Acetate 667 MG CAPSULE 1334 MG PO ×3 (08:19→16:45)
[2024-10-10] MEDS: Amiodarone HCL 200 MG TABLET PO (08:19)
[2024-10-10] MEDS: Buprenorphine/Naloxone 8/2 mg FILM 1 FILM SUBLINGUAL ×3 (08:20→20:53)
[2024-10-10] MEDS: calcitrioL 0.25 MCG CAPSULE 0.5 MCG PO (08:20)
[2024-10-10 08:22] LABS: Amphetamine Screen Urine Not Detected (Not Detect); Barbiturates, Urine Not Detected (Not Detect); Benzodiazepines Screen Urine Not Detected (Not Detect); Buprenorphine Scr Positive (Not Detect); Cannabinoid Screen Urine Not Detected (Not Detect); Cocaine Screen Urine Not Detected (Not Detect); Fentanyl, urine Not Detected (Not Detect); Methadone Screen, Urine Not Detected (Not Detect); Opiate Screen Urine Not Detected (Not Detect); Oxycodone Screen Urine Positive (Not Detect); Phencyclidine Screen Urine Not Detected (Not Detect)
[2024-10-10] MEDS: 0.9 % Sodium Chloride Flush 3 ML SYRINGE IVFLUSH ×3 (08:26→23:07)
--- NOTE | 2024-10-10 08:44 | P.PNIM_ITS ---
Subjective Subjective Date of Service: 10/10/24 Interval History: f/u on sob d/t empayema, fluid overload, MRSA bacteremia. No fever, no new issues Physical Exam 2 Vital Signs: Vital Signs: Last Vital Signs Temp 98.3 F 10/10/24 07:23 Pulse 69 10/10/24 07:23 Resp 18 10/10/24 07:23 BP 103/52 L 10/10/24 07:23 Pulse Ox 98 10/10/24 07:23 O2 Del Method Nasal Cannula 10/10/24 07:23 O2 Flow Rate 3 10/10/24 07:23 Oxygen Flow Rate 2 10/03/24 18:18 BMI result Body Mass Index 34.1 Const: Other: General: AO X 3, no acute distress Resp: CTA bilateral CVS: S1,S2,RRR GI: +BS, NT, no distention Skin: No rash Neuro: motor grossly intact Psych: appropriate affect Objective Data Active Medications Acetaminophen (Acetaminophen 325 Mg Tablet) 975 mg PO Q6H PRN PRN Reason: Pain, Mild (Pain Scale 1-3), fever or headache Last Admin: 10/05/24 16:51 Dose: 975 mg Documented By: DENNY Acetaminophen (Acetaminophen Supp 650 Mg Supp.Rect) 650 mg AL Q6H PRN PRN Reason: Fever >101 Last Admin: 10/04/24 20:13 Dose: 650 mg Documented By: MARYBEL Albuterol Sulfate (Albuterol Sulfate (0.083%) 2.5 Mg/3 Ml Vial.Neb) 2.5 mg INHALE Q4H PRN PRN Reason: Shortness of Breath/Wheezing Last Admin: 10/08/24 23:21 Dose: 2.5 mg Documented By: DUKE Amiodarone HCl (Amiodarone Hcl 200 Mg Tablet) 200 mg PO DAILY [facility] Last Admin: 10/10/24 08:19 Dose: 200 mg Documented By: MIGUEL Apixaban (Apixaban 5 Mg Tablet) 5 mg PO BID [facility] Last Admin: 10/10/24 08:19 Dose: 5 mg Documented By: MIGUEL Atorvastatin Calcium (Atorvastatin Calcium 40 Mg Tablet) 40 mg PO BEDTIME [facility] Last Admin: 10/09/24 21:01 Dose: 40 mg Documented By: JACINTA Buprenorphine/Naloxone (Buprenorphine/Naloxone 8/2 Mg Film) 1 film SUBLINGUAL TID [facility] Last Admin: 10/10/24 08:20 Dose: 1 film Documented By: MIGUEL Calcitriol (Calcitriol 0.25 Mcg Capsule) 0.5 mcg PO DAILY [facility] Last Admin: 10/10/24 08:20 Dose: 0.5 mcg Documented By: MIGUEL Calcium Acetate (Calcium Acetate 667 Mg Capsule) 1,334 mg PO TIDWM [facility] Last Admin: 10/10/24 08:19 Dose: 1,334 mg Documented By: MIGUEL Glucose (Glucose Gel 15 Gm Gel..Gram.) 15 gm PO Q15M PRN; Protocol PRN Reason: per Hypoglycemia Standing Ord. Dextrose (D10) 250 mls @ 750 mls/hr IV Q15M PRN; Protocol PRN Reason: per Hypoglycemia Standing Ord. Vancomycin HCl 500 mg/ Sodium (Chloride) 110 mls @ 110 mls/[facility] (Insulin Glargine,Hum.Rec.Anlog 100 Unit/Ml 10 Ml Vial) 10 unit SUBCUT DAILY [facility] Last Admin: 10/10/24 08:19 Dose: 10 unit Documented By: MIGUEL Insulin Human Lispro (Insulin Lispro 100 Unit/Ml 3 Ml Vial) 0 unit SUBCUT QIDACHS [facility]; Protocol Last Admin: 10/10/24 07:38 Dose: Not Given Documented By: MIGUEL Non-Admin Reason: No Insulin Coverage Metoprolol Succinate (Metoprolol Succinate Er 100 Mg Tab.Er.24h) 100 mg PO DAILY [facility]; Protocol Last Admin: 10/10/24 08:19 Dose: 100 mg Documented By: MIGUEL Multivitamins/Vitamin C (Multivitamin Tablet) 1 tab PO DAILY [facility] Last Admin: 10/10/24 08:19 Dose: 1 tab Documented By: MIGUEL Omeprazole (Omeprazole 20 Mg Capsule.) 20 mg PO DAILY@0630 [facility] Last Admin: 10/10/24 05:42 Dose: 20 mg Documented By: JACINTA Oxycodone HCl (Oxycodone Hcl Immed Release 5 Mg Tablet) 5 mg PO Q6H PRN PRN Reason: Pain, Severe (Pain Scale 7-10) Last Admin: 10/10/24 04:19 Dose: 5 mg Documented By: JACINTA Pharmacy Consult (Consult Rx Vancomycin Dosing) 1 each MISCELLANE DAILY PRN PRN Reason: Consult order Sodium Chloride (0.9 % Sodium Chloride Flush 3 Ml Syringe) 3 ml IVFLUSH QSHIFT [facility] Last Admin: 10/10/24 08:26 Dose: 3 ml Documented By: MIGUEL Torsemide (Torsemide 20 Mg Tablet) 80 mg PO BID [facility]; Protocol Last Admin: 10/10/24 07:48 Dose: Not Given Documented By: MIGUEL Non-Admin Reason: Physician Held Med Labs 10/09/24 20:38 10/09/24 20:38 Labs: Laboratory Results - last 24 hr 10/09/24 10/09/24 10/09/24 11:39 16:33 20:08 MCV MCH MCHC RDW Plt Count MPV Immature Gran % (Auto) Neut % (Auto) Lymph % (Auto) Till[place] % (Auto) Eos % (Auto) Baso % (Auto) Lymph # (Auto) [place] # (Auto) Eos # (Auto) Baso # (Auto) Abs Immat Gran (auto) Absolute Neuts (auto) Absolute Nucleated RBC Nucleated RBC % (auto) VBG pH VBG pCO2 VBG pO2 VBG HCO3 VBG O2 Saturation VBG Base Excess Anion Gap Estim Creat Clear Calc Estimated GFR POC Glucose 191 H 141 H 160 H Random Glucose Calcium Magnesium Total Bilirubin AST ALT Alkaline Phosphatase Total Protein Albumin Urine Color Urine Appearance Urine pH Ur Specific [place] Urine Protein Urine Glucose (UA) Urine Ketones Urine Blood Urine Nitrite Ur Leukocyte Esterase Urine RBC Urine WBC Ur Squamous Epith Cells Urine Bacteria Hyaline Casts Urine Opiates Screen Ur Buprenorphine Scrn Ur Oxycodone Screen Urine Methadone Screen Urine Fentanyl Screen Ur Barbiturates Screen Ur Phencyclidine Scrn Ur Amphetamines Screen U Benzodiazepines Scrn Urine Cocaine Screen U Marijuana (THC) Screen 10/09/24 10/09/24 10/10/24 20:38 20:43 07:22 MCV 88.5 MCH 28.2 MCHC 31.9 RDW 16.4 H Plt Count 230 MPV 10.7 Immature Gran % (Auto) 0.5 H Neut % (Auto) 67.8 Lymph % (Auto) 13.7 L Tillman % (Auto) 13.7 H Eos % (Auto) 3.9 Baso % (Auto) 0.4 Lymph # (Auto) 1.2 Tillman # (Auto) 1.2 Eos # (Auto) 0.3 Baso # (Auto) 0.0 Abs Immat Gran (auto) 0.04 H Absolute Neuts (auto) 5.8 Absolute Nucleated RBC 0.000 Nucleated RBC % (auto) 0.0 VBG pH 7.32 VBG pCO2 48 VBG pO2 49 VBG HCO3 25 VBG O2 Saturation 80.0 VBG Base Excess -0.7 Anion Gap 11 L Estim Creat Clear Calc 28.6 Estimated GFR 17 POC Glucose 123 H Random Glucose 199 H Calcium 7.9 L Magnesium 1.8 Total Bilirubin 0.2 AST 50 H ALT < 6 Alkaline Phosphatase 199 H Total Protein 5.6 L Albumin 2.2 L Urine Color Urine Appearance Urine pH Ur Specific [place] Urine Protein Urine Glucose (UA) Urine Ketones Urine Blood Urine Nitrite Ur Leukocyte Esterase Urine RBC Urine WBC Ur Squamous Epith Cells Urine Bacteria Hyaline Casts Urine Opiates Screen Ur Buprenorphine Scrn Ur Oxycodone Screen Urine Methadone Screen Urine Fentanyl Screen Ur Barbiturates Screen Ur Phencyclidine Scrn Ur Amphetamines Screen U Benzodiazepines Scrn Urine Cocaine Screen U Marijuana (THC) Screen 10/10/24 07:32 MCV MCH MCHC RDW Plt Count MPV Immature Gran % (Auto) Neut % (Auto) Lymph % (Auto) [place] % (Auto) Eos % (Auto) Baso % (Auto) Lymph # (Auto) [place] # (Auto) Eos # (Auto) Baso # (Auto) Abs Immat Gran (auto) Absolute Neuts (auto) Absolute Nucleated RBC Nucleated RBC % (auto) VBG pH VBG pCO2 VBG pO2 VBG HCO3 VBG O2 Saturation VBG Base Excess Anion Gap Estim Creat Clear Calc Estimated GFR POC Glucose Random Glucose Calcium Magnesium Total Bilirubin AST ALT Alkaline Phosphatase Total Protein Albumin Urine Color Yellow Urine Appearance Clear Urine pH 5.5 Ur Specific [place] 1.010 Urine Protein 300 (3+) H Urine Glucose (UA) 100 H Urine Ketones Negative Urine Blood Trace H Urine Nitrite Negative Ur Leukocyte Esterase Moderate (2+) H Urine RBC 0-2 Urine WBC 11-20 Ur Squamous Epith Cells 0-2 Urine Bacteria None Seen Hyaline Casts 0-2 Urine Opiates Screen Not Detected Ur Buprenorphine Scrn Positive H Ur Oxycodone Screen Positive H Urine Methadone Screen Not Detected Urine Fentanyl Screen Not Detected Ur Barbiturates Screen Not Detected Ur Phencyclidine Scrn Not Detected Ur Amphetamines Screen Not Detected U Benzodiazepines Scrn Not Detected Urine Cocaine Screen Not Detected U Marijuana (THC) Screen Not Detected Microbiology Microbiology Results: Microbiology 10/06/24 15:15 Catheter Tip Culture - Final Catheter Tip - Other Methicillin Res Staph Aureus 10/05/24 09:15 Gram Stain - Final Thoracentesis Fluid Anaerobic Culture - Preliminary No growth to date. Body Fluid Culture - Final No growth after 2 days 10/04/24 04:55 Blood Culture - Final Blood - Venous No growth after 5 days. 10/04/24 04:55 Blood Culture - Final Blood - Venous No growth after 5 days. Assessment and Plan (1) MRSA bacteremia: Status: Acute (2) Empyema: Status: Acute (3) ESRD on dialysis: Status: Acute Plan 44 y/o man with past medical history significant for ESRD on HD (MWF) here with sob and found to have fluid overload and large left fluid overload Shortness on breath, multifactorial: Fluid overload secondary to end-stage renal disease + large left pleural effusion s/p thoracentesis today 10/05 with minimal output --loculated -Continue Vanco, Kefzol for empayema -s/p IR placement of pig tail catheter -CT chest 10/06 show near resolution of effusion -CT surgery has removed pigtail cath MRSA bacteremia -continue Vanco post dialysis, pharmacy to adjust level as needed -DC'd Kefzol since repeat culture negative x 48 hrs, and continue vanco post dialysis -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 Continue amiodarone, and Eliquis Elevated troponin, chronic. No chest pain. Likely secondary to end-stage renal disease. History of drug abuse. Continue Suboxone. Type 2 diabetes mellitus. -BG checks before meals at bedtime. - Insulin sliding scale and Lantus. Diabetic diet Hyperlipidemia. Continue atorvastatin. Right BKA. no issues DVT prophylaxis: Eliquis Code status: Full Need for inpt: MRSA bacteremia plan discussed with pt and mother Possible dc Friday after permanent catheter insertion, plan discussed with mother over the phone Quality Stroke Does the patient have a stroke diagnosis?: No VTE Prior VTE?: No VTE Risk Level:: Medical - moderate - high VTE Device Contraindication: Treatment Not Indicated VTE Drug Contraindication: N/A - Med Ordered
[2024-10-10 11:49] LABS: Glucose, Whole Blood 136 mg/dL (60-115)
--- NOTE | 2024-10-10 12:14 | P.CDIM_ITS ---
PROVIDER RESPONSE TEXT: To clarify, the appropriate diagnosis supported by the clinical indicators: Sepsis, present on admission QUERY TEXT: PHYSICIAN'S DOCUMENTATION REQUEST Date of Query: 10/07/2024 11:49 AM EST Patient Name: SOLOMON NARANJO Admit Date: 10/04/2024 Dear Harley Cooper MD, A review of the medical record indicates additional documentation may be needed. Please review below and update the documentation accordingly. Clinical Indicators: WBC 13.9 T 102.8 P 111 LA .9 blood culture 10/04/24: MRSA IV Vancomycin per ID 10/06/24: Reason for consult: MRSA bacteremia, empyema He presents with shortness of breath and cough. He had reported chills as well. He has blood cultures x 2 10/04 staph aureus ,final pending. He has left large pleural effusion, thoracentesis fluid pending. Please clarify which, if any, of the following is the most likely etiology of the above symptoms and treatment rendered: Sepsis, present on admission Bacteremia (abnormal lab finding only, does not indicate systemic illness) Other (explain) Clinically unable to determine (explain) Thank you, Belinda Villanueva RN Use of terms such as suspected, likely, concern for, or probable (associated with a specific diagnosi s that is being evaluated, monitored, or treated as if it exists) are acceptable and can be coded in the inpatient se tting, when documented at the time of discharge. Please use your independent medical judgment in providing your response. THIS QUERY IS PART OF THE PERMANENT MEDICAL RECORD
[2024-10-10 16:25] LABS: Glucose, Whole Blood 201 mg/dL (60-115)
[2024-10-10] MEDS: Insulin Lispro 100 UNIT/ML 3 ML VIAL SUBCUT (16:45)
[2024-10-10 20:21] LABS: Glucose, Whole Blood 116 mg/dL (60-115)
[2024-10-10] MEDS: Torsemide 20 MG TABLET 80 MG PO (20:52)
[2024-10-10] MEDS: Atorvastatin Calcium 40 MG TABLET PO (20:53)
[2024-10-11 03:16] VITALS: BP 101/53; PULSE 68; RESP 18; TEMP 36.3; O2SAT 100
[2024-10-11] MEDS: Omeprazole 20 MG CAPSULE.DR PO (05:43)
[2024-10-11] MEDS: oxyCODONE HCl Immed Release 5 MG TABLET PO ×2 (05:43→16:49)
[2024-10-11 08:08] LABS: Glucose, Whole Blood 152 mg/dL (60-115)
--- NOTE | 2024-10-11 08:21 | W.PM.DNNEP ---
Subjective Subjective Date of Service: 10/11/24 This patient was seen during dialysis. Interval history: 44 y/o male with a medical history of ESRD on HD, HTN, HLD, polysubstance dependence, PVD. 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 Recurrent hospitalizations since August 2024. Now ESRD pt 2/2 diabetic nephropathy/progression of underlying disease in addition to cocaine-induced nephropathy presented 10/03 evening with dyspnea x1 days No missed HD sessions. Per HD RN pt has been drinking significant fluid during outpatient HD sessions. blood cultures from 10/04 a.m. negative after 48 hours; 10/04 pm blood cultures +GPC 2 sets, 10/06 cultures no growth 48 hrs. large left pleural effusion, loculated, s/p thoracentesis 10/05 chest tube placement. Pt had echocardiogram that suggested pulmonic valve vegetation, HD catheter pulled 10/06 after his HD session, new temporary catheter placed 10/08 prior to HD catheter tip culture +MRSA; 10/06 blood cultures negative for 48 hours seen during HD session today he states his breathing is comfortable on NC denies chest pain, abdominal pain, flank pain denies tremors, twitching/abnormal movements denies itching, nausea, vomiting states he continues to urinate intermittently and denies pain/difficulty urinating. Physical Exam Vital Signs: Vital Signs: Last Vital Signs Temp 97.3 F 10/11/24 03:16 Pulse 68 10/11/24 03:16 Resp 18 10/11/24 03:16 BP 101/53 L 10/11/24 03:16 Pulse Ox 100 10/11/24 03:16 O2 Del Method Nasal Cannula 10/11/24 03:16 O2 Flow Rate 2 10/11/24 03:16 Oxygen Flow Rate 2 10/03/24 18:18 BMI result Body Mass Index 34.1 Const: General: no acute distress, alert and awake Neck: Neck: Yes no JVD Resp: Effort & Inspection: normal respiratory effort and able to speak in complete sentences Auscultation: rhonchi Cardio: Jugular venous distension: no JVD Rate: regular rate Rhythm: regular rhythm Heart sounds: S1 normal heart sound present and S2 normal heart sound present GI: Other: pitting edema across lower abdomen Palpation (GI): Soft to palpation and nontender Extrem: General: Yes edema (bilateral lower extremity edema- thighs, pitting) Assessment & Plan Assessment and plan (1) ESRD (end stage renal disease) on dialysis: Status: Acute (2) Acute hypoxemic respiratory failure: Status: Resolved (3) Anasarca: Status: Resolved Plan Pt with ESRD 2/2 natural progression of CKD 2/2 diabetic nephropathy and cocaine-induced nephropathy. Permcath removed on 10.06 due to vegetation on echo, pt had catheter pulled 10/06 and temporary catheter placement 10/08; plan for permcath placement today 10/11 H&H 8.0 & 25.5, 20,000u procrit last administered 10/07; will check iron studies Calcium 8.8, 09/23 PTH 123, calcitriol 0.5mg daily Phosphorous 2.7 on 10/11, phoslo 1334mg PO TID with meals no metabolic acidosis pt remains fluid overloaded, will continue to pull fluid as tolerated during HD, torsemide 80mg PO TID, 1.5L fluid restriction He will continue HD M,W, as his outpatient schedule Discussed with Dr Cagle Time Spent With Patient Time: Total time managing care of this patient today ____ minutes. Procedures Date of Service Date of Service: 10/11/24
--- NOTE | 2024-10-11 08:49 | P.PNIM_ITS ---
Subjective Subjective Date of Service: 10/11/24 Interval History: f/u on sob d/t empayema, fluid overload, MRSA bacteremia. No fever, no new issues Physical Exam 2 Vital Signs: Vital Signs: Last Vital Signs Temp 97.3 F 10/11/24 03:16 Pulse 68 10/11/24 03:16 Resp 18 10/11/24 03:16 BP 101/53 L 10/11/24 03:16 Pulse Ox 100 10/11/24 03:16 O2 Del Method Nasal Cannula 10/11/24 03:16 O2 Flow Rate 2 10/11/24 03:16 Oxygen Flow Rate 2 10/03/24 18:18 BMI result Body Mass Index 34.1 Const: Other: General: AO X 3, no acute distress Resp: CTA bilateral CVS: S1,S2,RRR GI: +BS, NT, no distention Skin: No rash Neuro: motor grossly intact Psych: appropriate affect Objective Data Active Medications Acetaminophen (Acetaminophen 325 Mg Tablet) 975 mg PO Q6H PRN PRN Reason: Pain, Mild (Pain Scale 1-3), fever or headache Last Admin: 10/05/24 16:51 Dose: 975 mg Documented By: DENNY Acetaminophen (Acetaminophen Supp 650 Mg Supp.Rect) 650 mg NE Q6H PRN PRN Reason: Fever >101 Last Admin: 10/04/24 20:13 Dose: 650 mg Documented By: MARYBEL Albuterol Sulfate (Albuterol Sulfate (0.083%) 2.5 Mg/3 Ml Vial.Neb) 2.5 mg INHALE Q4H PRN PRN Reason: Shortness of Breath/Wheezing Last Admin: 10/08/24 23:21 Dose: 2.5 mg Documented By: DUKE Amiodarone HCl (Amiodarone Hcl 200 Mg Tablet) 200 mg PO DAILY [facility] Last Admin: 10/10/24 08:19 Dose: 200 mg Documented By: MIGUEL Apixaban (Apixaban 5 Mg Tablet) 5 mg PO BID [facility] Last Admin: 10/10/24 20:52 Dose: 5 mg Documented By: PETE Atorvastatin Calcium (Atorvastatin Calcium 40 Mg Tablet) 40 mg PO BEDTIME [facility] Last Admin: 10/10/24 20:53 Dose: 40 mg Documented By: PETE Buprenorphine/Naloxone (Buprenorphine/Naloxone 8/2 Mg Film) 1 film SUBLINGUAL TID [facility] Last Admin: 10/10/24 20:53 Dose: 1 film Documented By: PETE Calcitriol (Calcitriol 0.25 Mcg Capsule) 0.5 mcg PO DAILY [facility] Last Admin: 10/10/24 08:20 Dose: 0.5 mcg Documented By: MIGUEL Calcium Acetate (Calcium Acetate 667 Mg Capsule) 1,334 mg PO TIDWM [facility] Last Admin: 10/10/24 16:45 Dose: 1,334 mg Documented By: MIGUEL Glucose (Glucose Gel 15 Gm Gel..Gram.) 15 gm PO Q15M PRN; Protocol PRN Reason: per Hypoglycemia Standing Ord. Dextrose (D10) 250 mls @ 750 mls/hr IV Q15M PRN; Protocol PRN Reason: per Hypoglycemia Standing Ord. Vancomycin HCl 500 mg/ Sodium (Chloride) 110 mls @ 110 mls/hr [facility] Insulin Glargine (Insulin Glargine,Hum.Rec.Anlog 100 Unit/Ml 10 Ml Vial) 10 unit SUBCUT DAILY [facility] Last Admin: 10/10/24 08:19 Dose: 10 unit Documented By: MIGUEL Insulin Human Lispro (Insulin Lispro 100 Unit/Ml 3 Ml Vial) 0 unit SUBCUT QIDACHS [facility]; Protocol Last Admin: 10/11/24 08:20 Dose: Not Given Documented By: DEEPTI Non-Admin Reason: Off unit: Dialysis Metoprolol Succinate (Metoprolol Succinate Er 100 Mg Tab.Er.24h) 100 mg PO DAILY [facility]; Protocol Last Admin: 10/10/24 08:19 Dose: 100 mg Documented By: MIGUEL Multivitamins/Vitamin C (Multivitamin Tablet) 1 tab PO DAILY [facility] Last Admin: 10/10/24 08:19 Dose: 1 tab Documented By: MIGUEL Omeprazole (Omeprazole 20 Mg Capsule.) 20 mg PO DAILY@0630 [facility] Last Admin: 10/11/24 05:43 Dose: 20 mg Documented By: PETE Oxycodone HCl (Oxycodone Hcl Immed Release 5 Mg Tablet) 5 mg PO Q6H PRN PRN Reason: Pain, Severe (Pain Scale 7-10) Last Admin: 10/11/24 05:43 Dose: 5 mg Documented By: PETE Pharmacy Consult (Consult Rx Vancomycin Dosing) 1 each MISCELLANE DAILY PRN PRN Reason: Consult order Sodium Chloride (0.9 % Sodium Chloride Flush 3 Ml Syringe) 3 ml IVFLUSH QSHIFT [facility] Last Admin: 10/10/24 23:07 Dose: 3 ml Documented By: PETE Torsemide (Torsemide 20 Mg Tablet) 80 mg PO BID [facility]; Protocol Last Admin: 10/10/24 20:52 Dose: 80 mg Documented By: PETE Labs 10/09/24 20:38 10/09/24 20:38 Labs: Laboratory Results - last 24 hr 10/10/24 10/10/24 10/10/24 11:45 16:02 20:18 POC Glucose 136 H 201 H 116 H 10/11/24 08:04 POC Glucose 152 H Microbiology Microbiology Results: Microbiology 10/06/24 06:06 Blood Culture - Final Blood - Venous No growth after 5 days. 10/06/24 06:00 Blood Culture - Final Blood - Venous No growth after 5 days. 10/05/24 09:15 Gram Stain - Final Thoracentesis Fluid Anaerobic Culture - Final NO GROWTH AFTER 5 DAYS Body Fluid Culture - Final No growth after 2 days 10/06/24 15:15 Catheter Tip Culture - Final Catheter Tip - Other Methicillin Res Staph Aureus Assessment and Plan (1) MRSA bacteremia: Status: Acute (2) Empyema: Status: Acute (3) ESRD on dialysis: Status: Acute Plan 44 y/o man with past medical history significant for ESRD on HD (MWF) here with sob and found to have fluid overload and large left fluid overload Shortness on breath, multifactorial: Fluid overload secondary to end-stage renal disease + large left pleural effusion s/p thoracentesis today 10/05 with minimal output --loculated -Continue Vanco, Kefzol for empayema -s/p IR placement of pig tail catheter -CT chest 10/06 show near resolution of effusion -CT surgery has removed pigtail cath MRSA bacteremia -continue Vanco post dialysis, pharmacy to adjust level as needed -DC'd Kefzol since repeat culture negative x 48 hrs, and continue vanco post dialysis -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 Continue amiodarone, and Eliquis Elevated troponin, chronic. No chest pain. Likely secondary to end-stage renal disease. History of drug abuse. Continue Suboxone. Type 2 diabetes mellitus. -BG checks before meals at bedtime. - Insulin sliding scale and Lantus. Diabetic diet Hyperlipidemia. Continue atorvastatin. Right BKA. no issues DVT prophylaxis: Eliquis Code status: Full Need for inpt: MRSA bacteremia plan discussed with pt and mother Possible dc today if able to get a perm cath Quality Stroke Does the patient have a stroke diagnosis?: No VTE Prior VTE?: No VTE Risk Level:: Medical - moderate - high VTE Device Contraindication: Treatment Not Indicated VTE Drug Contraindication: N/A - Med Ordered
[2024-10-11] MEDS: Buprenorphine/Naloxone 8/2 mg FILM 1 FILM SUBLINGUAL ×3 (09:40→20:29)
--- NOTE | 2024-10-11 10:44 | MHC.CLN ---
F/U PO INTAKE MOST MEALS 50-100%. DIET RX: 2000DM, CARDIAC, LOW PHOS, LOW K+. PATIENT WITH ESRD RECEIVING HEMODIALYSIS. UNSTAGEABLE AREA TO COCCYX. RECEIVING ENSURE MAX BID TO PROVIDE 300KCALS, 60G PROTEIN FOR WOUND HEALING. MONITOR PO INTAKE AND ENCOURAGE SUPPLEMENT.
[2024-10-11 11:07] LABS: Hematocrit 25.5 % (42.0-52.0); Mean Corpuscular HGB Conc 31.4 g/dl (31.0-36.0); Mean Corpuscular Hemoglobin 27.5 pg (27.0-33.0); Mean Corpuscular Volume 87.6 fL (80.0-98.0); Mean Platelet Volume 10.8 fL (9.4-12.4); Platelet Count 341 X10*3/uL (160-400); Red Blood Count 2.91 X10*6/uL (4.60-5.80); Red Cell Distribution Width 16.3 % (11.0-16.0); White Blood Count 10.3 X10*3/uL (4.8-10.8)
[2024-10-11 11:22] LABS: Alanine Aminotransferase < 6 U/L (0-40); Albumin Level 2.4 g/dL (3.5-5.0); Alkaline Phosphatase 201 U/L (39-117); Anion Gap 9 (12-20); Aspartate Amino Transferase 34 U/L (5-37); Bilirubin Total 0.3 mg/dL (0.0-1.0); Blood Urea Nitrogen 20 mg/dL (9-16); Calcium 8.8 mg/dL (8.4-10.2); Carbon Dioxide 26 mmol/L (22-29); Chloride 99 mmol/L (96-108); Creatinine Clr Calc Pharmacy 48.5; Estimated Glomerular Filt Rate 31; Glucose Random 125 mg/dL (60-115); Phosphorus 2.7 mg/dL (2.7-4.5); Potassium 3.5 mmol/L (3.3-5.1); Sodium 130 mmol/L (135-145); Total Protein 6.5 g/dL (6.5-8.0)
[2024-10-11 11:23] VITALS: BP 102/52; PULSE 80; RESP 18; TEMP 36.8; O2SAT 100
[2024-10-11 11:23] LABS: Glucose, Whole Blood 129 mg/dL (60-115)
--- NOTE | 2024-10-11 11:26 | HO.WOUND ---
Wound Consult: Attempted follow up 44yr old Male admitted to [facility] [place] on [place]04/24 - See progress notes and H&P for detailed history.? Attempted wound consult patient was off the unit will attempt a future time and date.
[2024-10-11] MEDS: calcitrioL 0.25 MCG CAPSULE 0.5 MCG PO (11:36)
[2024-10-11] MEDS: Calcium Acetate 667 MG CAPSULE 1334 MG PO ×2 (11:36→16:26)
[2024-10-11] MEDS: Torsemide 20 MG TABLET 80 MG PO ×2 (11:37→20:28)
[2024-10-11] MEDS: Metoprolol Succinate ER 100 MG TAB.ER.24H PO (11:37)
[2024-10-11] MEDS: Multivitamin TABLET 1 TAB PO (11:38)
[2024-10-11] MEDS: Apixaban 5 MG TABLET PO ×2 (11:38→20:29)
[2024-10-11] MEDS: Insulin Glargine,Hum.rec.anlog 100 UNIT/ML 10 ML VIAL 10 UNIT SUBCUT (11:38)
[2024-10-11] MEDS: Amiodarone HCL 200 MG TABLET PO (11:38)
--- NOTE | 2024-10-11 11:38 | MHC.CM.PN ---
Per MD rounds Patient will receive a new line for HD in today. [facility] has been notified that the patient is planned for discharge today after new HD line placement. Line documentation will be faxed to [facility] once available FAX [phone]. [facility] will again attempt to start home services. They have been notified of the discharge today. Transportation is booked for 4pm pivk up @ [facility].
[2024-10-11] MEDS: 0.9 % Sodium Chloride Flush 3 ML SYRINGE IVFLUSH ×3 (11:39→23:57)
[2024-10-11 15:33] LABS: Vancomycin Random 11.3 mcg/mL (15-20)
[2024-10-11 15:46] VITALS: PULSE 80; RESP 18; TEMP 37.1; O2SAT 100
[2024-10-11 15:52] LABS: Glucose, Whole Blood 234 mg/dL (60-115)
--- NOTE | 2024-10-11 16:05 | HO.WOUND ---
Wound Consult: Follow up 44yr old Male admitted to [facility] on 10/04/24 - See progress notes and H&P for detailed history.? Wound consult follow up for Buttock and Scrotal wound POA.? Patient agreeable to assessment and photo documentation - he denies pain to the sacral area however when skin was assessed he reports significant pain when cleansing. Patient educated to allow turns and repositions to aid in healing. Scrotum Etiology: ??Improving MASD (Moisture Associated Skin Damage) Wound Bed: Scattered partial thickness tissue loss, red pink erythema and dry desquamation noted Drainage / Odor: None Edges: ? irregular Corazon wound: ?MASD - No Induration, Fluctuance or Warmth noted Goals of Treatment: ? Triad to protect from moisture and friction and allow for moist wound healing Sacrococcygeal (Sacrum, Coccyx, and Buttock) Etiology: ?Unstagable Pressure injury -?Present on Admission Wound Bed: Full thickness tissue loss with adherent yellow white slough granulation buds noted Drainage / Odor: yellow flowers - mild odor noted Edges: ? irregular Corazon wound: MASD and friction Pain: pain reported Goals of Treatment: ?Triad to protect from moisture and friction and allow for autolytic debridement cover with ABD pad to aid in triad application. Patient should consider outpt wound clinic follow up Foam was in use - discontinue foam with Triad as this may be trapping moisture to wound bed - recommend Triad and ABD pad for secondary dressing. Recommendations: 1. Turn and Reposition every 2 hours and as needed for patient comfort.? Use pillows or wedges to support off loading positions. 2. Off Load all bony prominences with use of pillows and heel boots if needed.? Apply Preventative foams where needed. ? 3. Monitor for incontinence and moisture control, use barrier creams when needed for prevention and treatment. 4. Provide adequate and supplemental nutrition.? 5. Order low air loss mattress. 6. When applicable maintain blood glucose levels per Providers order. 7. Scrotum, Buttock, sacrum and Coccyx - Off Load Pressure with Q2hr turns and use of pillows. Cleanse with PH balance spray or wipes, pat dry. ?Apply thin layer of Triad to wound bed - only pat and dab no scrub and rub when soiling occurs. Reapply thin layer PRN after each episode of incontinence. cover with ABD pad secure in place with tape. Do not use foam dressing at this time. Recommend follow up out patient Wound Clinic at [address] [place] [id number] and to call for an appointment at time of discharge. [phone].? Re-consult wound care Nurse for wound deterioration or wound changes.
--- NOTE | 2024-10-11 16:22 | HO.WOUND ---
Wound Consult: Follow up 44yr old Male admitted to [facility] [place] on 10/04/24 - See progress notes and H&P for detailed history.? Wound consult follow up for Buttock and Scrotal wound POA.? Patient agreeable to assessment and photo documentation - he denies pain to the sacral area however when skin was assessed he reports significant pain when cleansing. Patient educated to allow turns and repositions to aid in healing. Scrotum Etiology: ??Improving MASD (Moisture Associated Skin Damage) Wound Bed: Scattered partial thickness tissue loss, red pink erythema and dry desquamation noted Drainage / Odor: None Edges: ? irregular Tao wound: ?MASD - No Induration, Fluctuance or Warmth noted Goals of Treatment: ? Triad to protect from moisture and friction and allow for moist wound healing Sacrococcygeal (Sacrum, Coccyx, and Buttock) Etiology: ?Unstagable Pressure injury -?Present on Admission Wound Bed: Full thickness tissue loss with adherent yellow white slough granulation buds noted Drainage / Odor: yellow flowers - mild odor noted Edges: ? irregular Tao wound: MASD and friction Pain: pain reported Goals of Treatment: ?Santyl for enzymatic debridement Foam was in use - discontinue foam use as this may be trapping moisture to wound bed - recommend Triad and ABD pad for secondary dressing. Recommendations: 1. Turn and Reposition every 2 hours and as needed for patient comfort.? Use pillows or wedges to support off loading positions. 2. Off Load all bony prominences with use of pillows and heel boots if needed.? Apply Preventative foams where needed. ? 3. Monitor for incontinence and moisture control, use barrier creams when needed for prevention and treatment. 4. Provide adequate and supplemental nutrition.? 5. Order low air loss mattress. 6. When applicable maintain blood glucose levels per Providers order. 7. Scrotum and Buttock- Off Load Pressure with Q2hr turns and use of pillows. Cleanse with PH balance spray or wipes, pat dry. ?Apply thin layer of Triad to wound bed - only pat and dab no scrub and rub when soiling occurs. Reapply thin layer PRN after each episode of incontinence. 8. Sacrum and Coccyx - Off Load Pressure with Q2hr turns and use of pillows. Cleanse with normal saline, pat dry. ?Apply triad barrier to the immediate tao wound, apply thick layer of Santyl to entire wound bed, cover with saline moist gauze, cover with ABD pad secure in place with tape. Do not use foam dressing at this time. Recommend follow up out patient Wound Clinic at [address] [place] [id number] and to call for an appointment at time of discharge. [phone].? Re-consult wound care Nurse for wound deterioration or wound changes.
[2024-10-11] MEDS: vancomycin HCL 500 MG in 0.9 % Sodium Chloride 100 ML 110 MG IV (16:24)
[2024-10-11] MEDS: Insulin Lispro 100 UNIT/ML 3 ML VIAL SUBCUT ×2 (16:49→20:28)
[2024-10-11 19:59] VITALS: BP 98/57; PULSE 78; RESP 18; TEMP 37.1; O2SAT 95
[2024-10-11 20:18] LABS: Glucose, Whole Blood 285 mg/dL (60-115)
[2024-10-11] MEDS: Atorvastatin Calcium 40 MG TABLET PO (20:29)
[2024-10-12] VITALS (20 sets, daily range): BP systolic 90–118; BP diastolic 27–73; PULSE 71–78; RESP 11–20; TEMP 36–37.1; O2SAT 97–100
[2024-10-12] MEDS: Omeprazole 20 MG CAPSULE.DR PO (05:56)
[2024-10-12 07:14] LABS: Glucose, Whole Blood 173 mg/dL (60-115)
[2024-10-12] MEDS: Insulin Lispro 100 UNIT/ML 3 ML VIAL SUBCUT ×3 (07:57→21:07)
[2024-10-12] MEDS: Insulin Glargine,Hum.rec.anlog 100 UNIT/ML 10 ML VIAL 10 UNIT SUBCUT (07:58)
[2024-10-12] MEDS: 0.9 % Sodium Chloride Flush 3 ML SYRINGE IVFLUSH ×3 (07:59→21:10)
[2024-10-12] MEDS: Multivitamin TABLET 1 TAB PO (08:04)
[2024-10-12] MEDS: Calcium Acetate 667 MG CAPSULE 1334 MG PO ×3 (08:08→16:10)
[2024-10-12] MEDS: Apixaban 5 MG TABLET PO ×2 (08:08→21:08)
[2024-10-12] MEDS: Amiodarone HCL 200 MG TABLET PO (08:08)
[2024-10-12] MEDS: calcitrioL 0.25 MCG CAPSULE 0.5 MCG PO (08:09)
--- NOTE | 2024-10-12 08:10 | PC.NURSE ---
Patient DROWSY,BP 90/53 PULSE 71 ,HELD METROPROLOL.TORSEMIDE,SEBOXONE,dR. CERDA AWARE
--- NOTE | 2024-10-12 08:30 | P.PNNP_ITS ---
Subjective Subjective Date of Service: 10/12/24 Interval history: 44 y/o with ESRD 2/2 diabetic nephropathy/progression of underlying disease in addition to cocaine-induced nephropathy presented 10/03 evening with dyspnea x1 days (multiple recent hospitalizations for fluid overload) No missed HD sessions. Per HD RN pt has been drinking significant fluid during outpatient HD sessions. blood cultures from 10/04 a.m. negative after 48 hours; 10/04 pm blood cultures +GPC 2 sets, 10/06 cultures no growth 48 hrs. Pt had echo with vegetation, so permcath removed; catheter tip culture positive for MRSA. large left pleural effusion, loculated, s/p thoracentesis 10/05 chest tube placement. he states his breathing is comfortable now on nasal cannula denies chest pain, abdominal pain, flank pain denies tremors, twitching/abnormal movements denies itching, nausea, vomiting states he continues to urinate intermittently and denies pain/difficulty urinating, 400mL UOP in last 24 hours Physical Exam 2 Vital Signs: Vital Signs: Last Vital Signs Temp 97.8 F 10/12/24 07:49 Pulse 72 10/12/24 10:30 Resp 18 10/12/24 10:30 BP 94/53 L 10/12/24 10:30 Pulse Ox 99 10/12/24 10:30 O2 Del Method Nasal Cannula 10/12/24 10:30 O2 Flow Rate 3 10/12/24 10:30 Oxygen Flow Rate 2 10/03/24 18:18 BMI result Body Mass Index 34.1 Const: General: no acute distress, alert and awake Neck: Neck: Yes no JVD Resp: Effort & Inspection: normal respiratory effort and able to speak in complete sentences Auscultation: rhonchi Cardio: Jugular venous distension: no JVD Rate: regular rate Rhythm: r egular rhythm Heart sounds: S1 normal heart sound present and S2 normal heart sound present GI: Other: pitting edema across lower abdomen Palpation (GI): Soft to palpation and nontender Extrem: General: Yes edema (bilateral lower extremity edema- thighs, pitting) Objective Data Labs 10/11/24 10:38 10/11/24 10:38 Labs: Laboratory Results - last 24 hr 10/11/24 10/11/24 10/11/24 10:38 11:16 14:46 WBC 10.3 RBC 2.91 L Hgb 8.0 L Hct 25.5 L MCV 87.6 MCH 27.5 MCHC 31.4 RDW 16.3 H Plt Count 341 D MPV 10.8 Absolute Nucleated RBC 0.000 Nucleated RBC % (auto) 0.0 Hold Purple Top Sodium 130 L Potassium 3.5 Chloride 99 Carbon Dioxide 26 Anion Gap 9 L BUN 20 H Creatinine 2.27 H Estim Creat Clear Calc 48.5 Estimated GFR 31 POC Glucose 129 H Random Glucose 125 H Calcium 8.8 D Phosphorus 2.7 Iron TIBC % Saturation Unsat Iron Binding Total Bilirubin 0.3 AST 34 ALT < 6 Alkaline Phosphatase 201 H Total Protein 6.5 Albumin 2.4 L Random Vancomycin 11.3 L 10/11/24 10/11/24 10/12/24 15:48 20:14 07:05 WBC RBC Hgb Hct MCV MCH MCHC RDW Plt Count MPV Absolute Nucleated RBC Nucleated RBC % (auto) Hold Purple Top Sodium Potassium Chloride Carbon Dioxide Anion Gap BUN Creatinine Estim Creat Clear Calc Estimated GFR POC Glucose 234 H 285 H 173 H Random Glucose Calcium Phosphorus Iron TIBC % Saturation Unsat Iron Binding Total Bilirubin AST ALT Alkaline Phosphatase Total Protein Albumin Random Vancomycin 10/12/24 08:30 WBC RBC Hgb Hct MCV MCH MCHC RDW Plt Count MPV Absolute Nucleated RBC Nucleated RBC % (auto) Hold Purple Top SEE NOTE Sodium Potassium Chloride Carbon Dioxide Anion Gap BUN Creatinine Estim Creat Clear Calc Estimated GFR POC Glucose Random Glucose Calcium Phosphorus Iron 15 L TIBC 112 L % Saturation 13 L Unsat Iron Binding 97 Total Bilirubin AST ALT Alkaline Phosphatase Total Protein Albumin Random Vancomycin Microbiology Microbiology Results: Microbiology 10/10/24 Unknown Urine clean catch - Clean Catch Midstream Urine Culture - Preliminary Proteus species 10/06/24 06:06 Blood - Venous Blood Culture - Final No growth after 5 days. 10/06/24 06:00 Blood - Venous Blood Culture - Final No growth after 5 days. 10/05/24 09:15 Thoracentesis Fluid Gram Stain - Final 10/05/24 09:15 Thoracentesis Fluid Anaerobic Culture - Final NO GROWTH AFTER 5 DAYS 10/05/24 09:15 Thoracentesis Fluid Body Fluid Culture - Final No growth after 2 days 10/06/24 15:15 Catheter Tip - Other Catheter Tip Culture - Final Methicillin Res Staph Aureus 10/04/24 04:55 Blood - Venous Blood Culture - Final No growth after 5 days. 10/04/24 04:55 Blood - Venous Blood Culture - Final No growth after 5 days. 10/04/24 20:07 Blood - Venous Blood Culture - Final Methicillin Res Staph Aureus 10/04/24 20:07 Blood - Venous Blood Culture - Final Methicillin Res Staph Aureus 10/04/24 Unknown Urine clean catch - Clean Catch Midstream Urine Culture - Final Procedures Date of Service Date of Service: 10/12/24 Assessment & Plan Assessment and plan (1) ESRD (end stage renal disease) on dialysis: Status: Acute (2) Acute hypoxemic respiratory failure: Status: Resolved (3) Anasarca: Status: Resolved Plan Pt with ESRD 2/2 natural progression of CKD 2/2 diabetic nephropathy and cocaine-induced nephropathy. Permcath removed on 10.06 due to vegetation on echo, pt had catheter pulled 10/06 and temporary catheter placement 10/08; plan for permcath placement today H&H 8.0 & 25.5, 20,000u procrit last administered 10/07; iron low 10/12, will give oral iron supplementation Calcium 8.8, 09/23 PTH 123, calcitriol 0.5mg daily Phosphorous 2.7 on 10/11, phoslo 1334mg PO TID with meals no metabolic acidosis pt remains fluid overloaded, will continue to pull fluid as tolerated during HD, torsemide 80mg PO TID, 1.5L fluid restriction He will continue HD M,W, as his outpatient schedule Discussed with Dr Cagle Time Spent With Patient Time: Total time managing care of this patient today ____ minutes. Progress Note: Quality Stroke Does the patient have a stroke diagnosis?: No
--- NOTE | 2024-10-12 09:22 | P.PNIM_ITS ---
Subjective Subjective Date of Service: 10/12/24 Interval History: f/u on MRSA bacteremia, sepsis, empayema she doing ok, no fever, no shortness of breath blood pressure is on the low side Physical Exam 2 Vital Signs: Vital Signs: Last Vital Signs Temp 97.8 F 10/12/24 07:49 Pulse 71 10/12/24 08:01 Resp 12 10/12/24 07:49 BP 90/53 L 10/12/24 08:01 Pulse Ox 98 10/12/24 07:49 O2 Del Method Nasal Cannula 10/12/24 07:49 O2 Flow Rate 2 10/12/24 07:49 Oxygen Flow Rate 2 10/03/24 18:18 BMI result Body Mass Index 34.1 Const: Other: General: AO X 3, no acute distress Resp: CTA bilateral CVS: S1,S2,RRR GI: +BS, NT, no distention Skin: No rash Neuro: motor grossly intact Psych: appropriate affect Objective Data Active Medications Acetaminophen (Acetaminophen 325 Mg Tablet) 975 mg PO Q6H PRN PRN Reason: Pain, Mild (Pain Scale 1-3), fever or headache Last Admin: 10/05/24 16:51 Dose: 975 mg Documented By: DENNY Acetaminophen (Acetaminophen Supp 650 Mg Supp.Rect) 650 mg WA Q6H PRN PRN Reason: Fever >101 Last Admin: 10/04/24 20:13 Dose: 650 mg Documented By: MARYBEL Albuterol Sulfate (Albuterol Sulfate (0.083%) 2.5 Mg/3 Ml Vial.Neb) 2.5 mg INHALE Q4H PRN PRN Reason: Shortness of Breath/Wheezing Last Admin: 10/08/24 23:21 Dose: 2.5 mg Documented By: DUKE Amiodarone HCl (Amiodarone Hcl 200 Mg Tablet) 200 mg PO DAILY [facility] Last Admin: 10/12/24 08:08 Dose: 200 mg Documented By: CAREN Apixaban (Apixaban 5 Mg Tablet) 5 mg PO BID [facility] Last Admin: 10/12/24 08:08 Dose: 5 mg Documented By: CAREN Atorvastatin Calcium (Atorvastatin Calcium 40 Mg Tablet) 40 mg PO BEDTIME [facility] Last Admin: 10/11/24 20:29 Dose: 40 mg Documented By: HO.COOK Buprenorphine/Naloxone (Buprenorphine/Naloxone 8/2 Mg Film) 1 film SUBLINGUAL TID [facility] Last Admin: 10/12/24 08:10 Dose: Not Given Documented By: CAREN Non-Admin Reason: md AWARE,PT DROWSY Calcitriol (Calcitriol 0.25 Mcg Capsule) 0.5 mcg PO DAILY [facility] Last Admin: 10/12/24 08:09 Dose: 0.5 mcg Documented By: CAREN Calcium Acetate (Calcium Acetate 667 Mg Capsule) 1,334 mg PO TIDWM [facility] Last Admin: 10/12/24 08:08 Dose: 1,334 mg Documented By: CAREN Collagenase (Collagenase Clostridium Hist. 30 Gm Tube) 1 appl TOPICAL DAILY [facility]; Protocol Last Admin: 10/11/24 16:22 Dose: Not Given Documented By: DEEPTI Non-Admin Reason: Med Not Available Glucose (Glucose Gel 15 Gm Gel..Gram.) 15 gm PO Q15M PRN; Protocol PRN Reason: per Hypoglycemia Standing Ord. Dextrose (D10) 250 mls @ 750 mls/hr IV Q15M PRN; Protocol PRN Reason: per Hypoglycemia Standing Ord. Vancomycin HCl 500 mg/ Sodium (Chloride) 110 mls @ 110 mls/hr IV MoWeFr [facility] Insulin Glargine (Insulin Glargine,Hum.Rec.Anlog 100 Unit/Ml 10 Ml Vial) 10 unit SUBCUT DAILY [facility] Last Admin: 10/12/24 07:58 Dose: 10 unit Documented By: CAREN Insulin Human Lispro (Insulin Lispro 100 Unit/Ml 3 Ml Vial) 0 unit SUBCUT QIDACHS [facility]; Protocol Last Admin: 10/12/24 07:57 Dose: 2 unit Documented By: CAREN Metoprolol Succinate (Metoprolol Succinate Er 100 Mg Tab.Er.24h) 100 mg PO DAILY [facility]; Protocol Last Admin: 10/12/24 08:10 Dose: Not Given Documented By: CAREN Non-Jad Reason: bp 90/53, AWARE Multivitamins/Vitamin C (Multivitamin Tablet) 1 tab PO DAILY [facility] Last Admin: 10/12/24 08:04 Dose: 1 tab Documented By: CAREN Omeprazole (Omeprazole 20 Mg Frida.) 20 mg PO DAILY@0630 [facility] Last Admin: 10/12/24 05:56 Dose: 20 mg Documented By: PETE Oxycodone HCl (Oxycodone Hcl Immed Release 5 Mg Tablet) 5 mg PO Q6H PRN PRN Reason: Pain, Severe (Pain Scale 7-10) Last Admin: 10/11/24 16:49 Dose: 5 mg Documented By: DEEPTI Pharmacy Consult (Consult Rx Vancomycin Dosing) 1 each MISCELLANE DAILY PRN PRN Reason: Consult order Sodium Chloride (0.9 % Sodium Chloride Flush 3 Ml Syringe) 3 ml IVFLUSH QSHIFT [facility] Last Admin: 10/12/24 07:59 Dose: 3 ml Documented By: CAREN Torsemide (Torsemide 20 Mg Tablet) 80 mg PO BID [facility]; Protocol Last Admin: 10/12/24 08:09 Dose: Not Given Documented By: CAREN Non-Admin Reason: bp 90/53 Labs 10/11/24 10:38 10/11/24 10:38 Labs: Laboratory Results - last 24 hr 10/11/24 10/11/24 10/11/24 10:38 11:16 14:46 MCV 87.6 MCH 27.5 MCHC 31.4 RDW 16.3 H Plt Count 341 D MPV 10.8 Absolute Nucleated RBC 0.000 Nucleated RBC % (auto) 0.0 Hold Purple Top Anion Gap 9 L Estim Creat Clear Calc 48.5 Estimated GFR 31 POC Glucose 129 H Random Glucose 125 H Calcium 8.8 D Phosphorus 2.7 Total Bilirubin 0.3 AST 34 ALT < 6 Alkaline Phosphatase 201 H Total Protein 6.5 Albumin 2.4 L Random Vancomycin 11.3 L 10/11/24 10/11/24 10/12/24 15:48 20:14 07:05 MCV MCH MCHC RDW Plt Count MPV Absolute Nucleated RBC Nucleated RBC % (auto) Hold Purple Top Anion Gap Estim Creat Clear Calc Estimated GFR POC Glucose 234 H 285 H 173 H Random Glucose Calcium Phosphorus Total Bilirubin AST ALT Alkaline Phosphatase Total Protein Albumin Random Vancomycin 10/12/24 08:30 MCV MCH MCHC RDW Plt Count MPV Absolute Nucleated RBC Nucleated RBC % (auto) Hold Purple Top SEE NOTE Anion Gap Estim Creat Clear Calc Estimated GFR POC Glucose Random Glucose Calcium Phosphorus Total Bilirubin AST ALT Alkaline Phosphatase Total Protein Albumin Random Vancomycin Microbiology Microbiology Results: Microbiology 10/10/24 Unknown Urine Culture - Preliminary Urine clean catch - Clean Catch Midstream Culture in progress. 10/06/24 06:06 Blood Culture - Final Blood - Venous No growth after 5 days. 10/06/24 06:00 Blood Culture - Final Blood - Venous No growth after 5 days. Assessment and Plan (1) MRSA bacteremia: Status: Acute (2) Empyema: Status: Acute (3) ESRD on dialysis: Status: Acute Plan 44 y/o man with past medical history significant for ESRD on HD (MWF) here with sob and found to have fluid overload and large left fluid overload Shortness on breath, multifactorial: Fluid overload secondary to end-stage renal disease + large left pleural effusion s/p thoracentesis today 10/05 with minimal output --?loculated -Initially was on Vanco and Kefzol -s/p IR placement of pig tail catheter -CT chest 10/06 show near resolution of effusion so catheter was removed by CT surgery MRSA bacteremia -initially was on Vanco and Kefzol and now continue Vanco post dialysis, pharmacy to adjust level as needed -culture negative over 48 hrs -Echocardigram show 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 Continue amiodarone, and Eliquis Hypotension--hold metoprolol and Torsemide if SBP < 100 -adding midodrine 5 biid Elevated troponin, chronic. No chest pain. Likely secondary to end-stage renal disease. History of drug abuse. Continue Suboxone. Addiction med following Type 2 diabetes mellitus. -BG checks before meals at bedtime. -Insulin sliding scale and Lantus. Diabetic diet Hyperlipidemia. Continue atorvastatin. Right BKA. no issues DVT prophylaxis: Eliquis Code status: Full Need for inpt: MRSA bacteremia Discharge home once permcath in place Quality Stroke Does the patient have a stroke diagnosis?: No VTE Prior VTE?: No VTE Risk Level:: Medical - moderate - high VTE Device Contraindication: Treatment Not Indicated VTE Drug Contraindication: N/A - Med Ordered
[2024-10-12] MEDS: Midodrine HCl 5 MG TABLET PO ×2 (09:39→21:08)
[2024-10-12 09:55] LABS: Iron 15 mcg/dL (45-160); Percent Iron Saturation 13 % (15-50); Total Iron Binding Capacity 112 mcg/dL (228-428); Unsaturated Iron Binding 97 ug/dL
[2024-10-12] MEDS: fentaNYL citrate/PF 100 MCG/2 ML VIAL 25 MCG IVPUSH ×2 (10:48→11:05)
--- NOTE | 2024-10-12 11:27 | MHC.CM.PN ---
Patient is in IR for PermaCath insertion. He is planned for discharge today. 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 [facility] has been notified of the discharge. Jasmine GUPTA is aware that the patient will get a new line and resume HD tomorrow Friday10/13/24.
[2024-10-12 11:48] LABS: Glucose, Whole Blood 97 mg/dL (60-115)
--- NOTE | 2024-10-12 11:56 | PM.PROC ---
Brief Operative Note Date of procedure: 10/12/24 Pre-op diagnosis: ESRD on HD, needs exterminator helper access, BC negative x 48 hr Post-op diagnosis: same Procedure: Right IJ 27 cm permacath placed using US and FL. Tip in right atrium. Ok for use. Left IJ Scott removed. No immediate complications.
[2024-10-12] MEDS: Iron Sucrose Complex 200 MG/10 ML VIAL IVPUSH (12:00)
[2024-10-12] MEDS: oxyCODONE HCl Immed Release 5 MG TABLET PO ×2 (12:57→22:47)
--- NOTE | 2024-10-12 13:01 | PC.NURSE ---
patient returned from IR ,permanent permacath placed in right chest,intact,no swelling ,redness or crepitus,left upper chest drsg clean and dry,no bleeding no swelling,no crepitus this is old permacath removal site
--- NOTE | 2024-10-12 14:01 | HO.SKINPHOTO ---
uleration present on bilateral buttocks and coocyx area,drsg changed as ordered
[2024-10-12] MEDS: Collagenase Clostridium Hist. 30 GM TUBE 1 APPL TOPICAL (14:06)
[2024-10-12] MEDS: Acetaminophen 325 MG TABLET 975 MG PO (16:10)
[2024-10-12] MEDS: Buprenorphine/Naloxone 8/2 mg FILM 1 FILM SUBLINGUAL ×2 (16:10→21:07)
[2024-10-12 16:19] LABS: Glucose, Whole Blood 203 mg/dL (60-115)
--- NOTE | 2024-10-12 17:28 | PC.NURSE ---
drsgs changed to coocyx,bilateral buttocks and right upper inner leg ,wound nurse notified
[2024-10-12] MEDS: Morphine Sulfate 2 MG/ML CARTRIDGE IVPUSH (18:29)
[2024-10-12 19:33] LABS: Glucose, Whole Blood 170 mg/dL (60-115)
[2024-10-12] MEDS: Atorvastatin Calcium 40 MG TABLET PO (21:08)
[2024-10-13] VITALS: RESP 16
[2024-10-13] MEDS: Morphine Sulfate 2 MG/ML CARTRIDGE IVPUSH ×3 (00:44→13:20)
[2024-10-13 03:37] VITALS: BP 115/66; PULSE 74; RESP 18; TEMP 36.6; O2SAT 99
[2024-10-13 07:41] LABS: Glucose, Whole Blood 204 mg/dL (60-115)
[2024-10-13 08:00] VITALS: BP 125/60; PULSE 78; RESP 18; TEMP 37.5; O2SAT 97
[2024-10-13] MEDS: Buprenorphine/Naloxone 8/2 mg FILM 1 FILM SUBLINGUAL ×2 (08:05→15:08)
[2024-10-13] MEDS: Torsemide 20 MG TABLET 80 MG PO (08:05)
[2024-10-13] MEDS: calcitrioL 0.25 MCG CAPSULE 0.5 MCG PO (08:05)
[2024-10-13] MEDS: Calcium Acetate 667 MG CAPSULE 1334 MG PO ×2 (08:05→13:15)
[2024-10-13] MEDS: Amiodarone HCL 200 MG TABLET PO (08:06)
[2024-10-13] MEDS: Apixaban 5 MG TABLET PO (08:06)
[2024-10-13] MEDS: Metoprolol Succinate ER 100 MG TAB.ER.24H PO (08:06)
[2024-10-13] MEDS: Ferrous Sulfate 324 MG TABLET.DR PO (08:06)
[2024-10-13] MEDS: Multivitamin TABLET 1 TAB PO (08:06)
[2024-10-13] MEDS: Midodrine HCl 5 MG TABLET PO (08:06)
[2024-10-13] MEDS: Insulin Glargine,Hum.rec.anlog 100 UNIT/ML 10 ML VIAL 10 UNIT SUBCUT (08:10)
[2024-10-13] MEDS: Insulin Lispro 100 UNIT/ML 3 ML VIAL SUBCUT (08:10)
[2024-10-13] MEDS: 0.9 % Sodium Chloride Flush 3 ML SYRINGE IVFLUSH ×2 (08:11→15:10)
--- NOTE | 2024-10-13 08:35 | P.PNNP_ITS ---
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 Per HD RN pt has been drinking significant fluid during outpatient HD sessions. blood cultures from 12 a.m. negative after 48 hours; 10/04 pm blood cultures +GPC 2 sets, 10/06 cultures no growth 48 hrs. Pt had echo with vegetation, so permcath removed and new permcath placed 10/12; catheter tip culture positive for MRSA. had large left loculated pleural effusion, s/p chest tube (removed after resolution of effusion) he states his breathing is comfortable now on nasal cannula denies chest pain, abdominal pain, flank pain denies tremors, twitching/abnormal movements denies itching, nausea, vomiting states he continues to urinate intermittently and denies pain/difficulty urinating, 400mL UOP in last 24 hours Physical Exam 2 Vital Signs: Vital Signs: Last Vital Signs Temp 99.5 F 10/13/24 08:00 Pulse 78 10/13/24 08:00 Resp 18 10/13/24 08:00 BP 125/60 10/13/24 08:00 Pulse Ox 97 10/13/24 08:00 O2 Del Method Nasal Cannula 10/13/24 08:00 O2 Flow Rate 1.0 10/13/24 08:00 Oxygen Flow Rate 2 10/03/24 18:18 BMI result Body Mass Index 34.1 Const: General: no acute distress, alert and awake Neck: Neck: Yes no JVD Resp: Effort & Inspection: normal respiratory effort and able to speak in complete sentences Auscultation: rhonchi Cardio: Jugular venous distension: no JVD Rate: regular rate Rhythm: r egular rhythm Heart sounds: S1 normal heart sound present and S2 normal heart sound present GI: Other: pitting edema across lower abdomen Palpation (GI): Soft to palpation and nontender Extrem: General: Yes edema (bilateral lower extremity edema- thighs, pitting) Objective Data Labs 10/11/24 10:38 10/11/24 10:38 Labs: Laboratory Results - last 24 hr 10/12/24 10/12/24 10/12/24 08:30 11:43 16:16 Hold Purple Top SEE NOTE POC Glucose 97 203 H Iron 15 L TIBC 112 L % Saturation 13 L Unsat Iron Binding 97 10/12/24 10/13/24 19:13 07:29 Hold Purple Top POC Glucose 170 H 204 H Iron TIBC % Saturation Unsat Iron Binding Microbiology Microbiology Results: Microbiology 10/10/24 Unknown Urine clean catch - Clean Catch Midstream Urine Culture - Final Proteus mirabilis Morganella morganii ssp aby 10/06/24 06:06 Blood - Venous Blood Culture - Final No growth after 5 days. 10/06/24 06:00 Blood - Venous Blood Culture - Final No growth after 5 days. 10/05/24 09:15 Thoracentesis Fluid Gram Stain - Final 10/05/24 09:15 Thoracentesis Fluid Anaerobic Culture - Final NO GROWTH AFTER 5 DAYS 10/05/24 09:15 Thoracentesis Fluid Body Fluid Culture - Final No growth after 2 days 10/06/24 15:15 Catheter Tip - Other Catheter Tip Culture - Final Methicillin Res Staph Aureus 10/04/24 04:55 Blood - Venous Blood Culture - Final No growth after 5 days. 10/04/24 04:55 Blood - Venous Blood Culture - Final No growth after 5 days. 10/04/24 20:07 Blood - Venous Blood Culture - Final Methicillin Res Staph Aureus 10/04/24 20:07 Blood - Venous Blood Culture - Final Methicillin Res Staph Aureus 10/04/24 Unknown Urine clean catch - Clean Catch Midstream Urine Culture - Final Procedures Date of Service Date of Service: 10/13/24 Assessment & Plan Assessment and plan (1) ESRD (end stage renal disease) on dialysis: Status: Acute (2) Acute hypoxemic respiratory failure: Status: Resolved (3) Anasarca: Status: Resolved Plan Pt with ESRD 2/2 natural progression of CKD 2/2 diabetic nephropathy and cocaine-induced nephropathy. Permcath removed on 10.06 due to vegetation on echo, catheter pulled 10/06, now has new permcath placedd 10/12 H&H 8.0 & 25.5, 20,000u procrit last administered 10/07; iron low 10/12, now on oral iron supplementation Calcium 8.8, 09/23 PTH 123, calcitriol 0.5mg daily Phosphorous 2.7 on 10/11, phoslo 1334mg PO TID with meals no metabolic acidosis pt remains fluid overloaded, will continue to pull fluid as tolerated during HD, torsemide 80mg PO TID, 1.5L fluid restriction given lower blood pressures, should consider reducing amiodarone and/or metoprolol dose He will continue HD M,W, as his outpatient schedule; HD today before discharge home; pt to continue IV vancomycin 500mg , W post HD at HD clinic for total of 6 weeks from 10/06 negative cultures Discussed with Dr Cagle Time Spent With Patient Time: Total time managing care of this patient today ____ minutes. Progress Note: Quality Stroke Does the patient have a stroke diagnosis?: No
--- NOTE | 2024-10-13 09:53 | MHC.CLN ---
F/U PO INTAKE VARIABLE WITH MANY MEALS 100%. DIET RX: 2000DM, CARDIAC, LOW PHOS, LOW K+. PATIENT WITH ESRD RECEIVING HEMODIALYSIS. UNSTAGEABLE AREAS TO COCCYX AND BILATERAL BUTTOCKS. STAGE II RIGHT UPPER LEG NOTED 10/12. RECEIVING ENSURE MAX BID (300 KCALS, 60 G PROTEIN) TO PROMOTE WOUND HEALING. MONITOR PO INTAKE AND ENCOURAGE SUPPLEMENT.
--- NOTE | 2024-10-13 11:01 | MHC.CM.PN ---
Per MD rounds dc today after HD. 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 [facility]care, [facility], [facility] and the patients Mother have all been notified of the discharge and time.
[2024-10-13 13:04] LABS: Glucose, Whole Blood 90 mg/dL (60-115)
--- NOTE | 2024-10-13 13:39 | PM.DS ---
DS: Providers Provider Date of Service: 10/13/24 Date of admission: 10/04/24 00:04 Date of discharge: 10/13/24 Primary care physician: Cristina Stover MD Consults: 10/04/24 00:08 Consult to Nephrology Routine Consulting Provider: [facility] Reason for consultation: inpatient HD Has provider been notified: No 10/05/24 00:38 Consult to Wound Care Routine Reason for consultation: patient has a wound on coccyx 10/05/24 14:20 Consult to Thoracic Surgery Routine Consulting Provider: Matteo Schneider Reason for consultation: empayema Has provider been notified: Yes 10/05/24 14:27 Consult to Infectious Diseases Routine Consulting Provider: [facility] Reason for consultation: MRSA bacteremia Has provider been notified: No DS: Diagnosis Discharge Diagnosis (1) ESRD (end stage renal disease) on dialysis: Status: Acute (2) Acute hypoxemic respiratory failure: Status: Resolved (3) Anasarca: Status: Resolved DS: Summary Hospital Course Hospital Course: Admission hpi Chief Complaint: Shortness on breath Deandre Luong is a 44 years old man with past medical history significant for ESRD on HD (MWF), essential hypertension, hyperlipidemia, PVD, s/p right BKA, type 2 diabetes mellitus and drug abuse on Suboxone presents to the emergency department complaining of shortness on breath and cough. He did not report any chest pain. Did not report any headache, nausea, vomiting, abdominal pain or diarrhea. There is no fevers or chills reported. Patient was recently hospitalized due to respiratory failure requiring intubation and thoracentesis. He denied ongoing illicit drug use or alcohol abuse. He is a tobacco smoker. In the ED, he was found to have stable vital signs. He is currently requiring 2 L/min supplemental oxygen via nasal cannula which is his baseline. Blood workup showed leukocytosis of 13.9, hemoglobin and platelets are baseline. Creatinine is 4.51 and BUN 43. There are no significant electrolyte imbalances. Troponin is 269.9 and BNP is 2416. Viral testing for COVID-19, influenza and RSV is negative. CXR showed low lung volumes, large left pleural effusion and probable small right pleural effusion. ED tx: None. Hospital course: This patient with ERSD on HD MWF and active drug user presented with shortness of breath. CXR at that time showed a left large pleural effusion, and elevated BNP suggestive of fluid overload. Patient's shortness of breath was attributed to P. Effusion, fluid overload and. He was initially treated with IV Lasix, and arrangement made for dialysis and thoracentesis. By the next day his blood cultures grew gram positive cocci which would inspector returned materials to be MRSA Problem Shortness on breath, multifactorial: Fluid overload secondary to end-stage renal disease + large left pleural effusion s/p thoracentesis today 10/05 with minimal ou He had throracentesis on 10/05 and pig tail catheter wa sleft in place. Following fluid removal from dialysis, he was seen by thoracic surgery and CT was performed and showed a small residual effusion and therefore the catheter was removed and patient continue to do fine without shortness of breath MRSA bacteremia--likely related to temp dialysis cathere which was ultimately removed and tip also grew MRSA. He was initially treated with Kefzol and Vancomyin and once the second blood cleared, kefzol was discontinued and kept on vanco alone per ID recommendation. An echocardiogram showed a pulmonic valve vegetation. There is no nos sings of valvular failure. Patient has remained fever free. ID is recommending 6 weeks of post dialysis vancomyin, ending November 17. There is no fever and WBC is within normal ESRD--HD MWF, infected Perm cath was removed. A temporally catheter inserted on 10/08, a permanent cather was inserted on 10/12 Paroxysmal atrial flutter. Continue amiodarone, metoprolol dose reduced to 50 d/t relative hypotension since Torsemide was added. To continue Eliquis Hypotension--likely related to Torsemide and in conjunction with metoprolol 100 mg daily, metoprolol is reduced to 50 and to continue Torsemid for high interdialytic weight gain Elevated troponin, chronic. No chest pain. Likely secondary to end-stage renal disease. History of drug abuse. Continue Suboxone. Addiction med following Type 2 diabetes mellitus. diabetic diet and resume home regimen Hyperlipidemia. Continue atorvastatin. Right BKA. no issues Dispo: home Time Attestation Discharge Coordination Time (in mins): 45 Quality: Safe Use of Opioids Does Pt have an Active Cancer Diagnosis on the Problem List?: No Quality: Stroke Does the patient have a stroke diagnosis?: No Physical Exam Vital Signs: Vital Signs: Last Vital Signs Temp 99.5 F 10/13/24 08:00 Pulse 78 10/13/24 08:00 Resp 18 10/13/24 08:00 BP 125/60 10/13/24 08:00 Pulse Ox 97 10/13/24 08:00 O2 Del Method Nasal Cannula 10/13/24 08:00 O2 Flow Rate 1.0 10/13/24 08:00 Oxygen Flow Rate 2 10/03/24 18:18 BMI result Body Mass Index 34.1 Const: Other: General: AO X 3, no acute distress Resp: CTA bilateral CVS: S1,S2,RRR GI: +BS, NT, no distention Skin: No rash Neuro: motor grossly intact Psych: appropriate affect DS: Data Data Completed and Pending Completed studies during hospitalization [Text1]: Labs on day of discharge: Laboratory Results - last 24 hr 10/12/24 10/12/24 10/13/24 16:16 19:13 07:29 POC Glucose 203 H 170 H 204 H 10/13/24 13:01 POC Glucose 90 Discharge Plan Discharge Anticipated Discharge Date/Time: 10/13/24 13:23 Patient Disposition: Home, Self-Care Discharge Diagnosis: Sepsis to MRSA bacteremia Referrals: [facility] [Other] - 1 Week (Services will start ) [facility] [Other] - 1 Week (Resume HD Friday) Cristina Stover MD [Primary Care Provider] - 1 Week Catina Cantu CNP [Nurse Practitioner] - 10/20/24 11:30 am ([facility] Telehealth Appointment 10/20/24 11:30AM) Discharge Medications: New metoprolol succinate 50 mg tablet extended release 24 hr 50 mg PO DAILY Qty: 90 0RF midodrine 5 mg Tablet 5 mg PO BID Qty: 60 0RF torsemide 20 mg Tablet 80 mg PO BID Qty: 180 0RF Protocol: Hold for SBP< HOLD for SBP < : 100 Continued multivitamin Tablet 1 tab PO DAILY Qty: 30 0RF atorvastatin 40 mg tablet 40 mg PO BEDTIME Qty: 30 0RF amiodarone 200 mg tablet 200 mg PO DAILY Qty: 90 0RF omeprazole 20 mg capsule,delayed release(DR/EC) 20 mg PO DAILY@0630 Qty: 30 0RF calcitriol 0.25 mcg Capsule 0.5 mcg PO DAILY Qty: 60 0RF calcium acetate(phosphat bind) 667 mg Capsule 1,334 mg PO TIDWM Qty: 120 0RF (DME) pen needle, diabetic 32 gauge x 1/4 needle Qty: 100 0RF Rx Instructions: Use four times a day or as directed. Eliquis 5 mg Tablet 5 mg PO BID Qty: 180 0RF (DME) Dakins solution 1/4 strength 500ml See Rx Instructions .Route .MEDSUPPLY Qty: 1 0RF Rx Instructions: As directed insulin lispro [Humalog KwikPen Insulin] 100 unit/mL insulin pen See Protocol subcut TIDAC Protocol: Insulin Correction Scale Less than or equal to 110 ---- Give (units): 0 111 to 150 Give (units): 0 151 to 200 Give (units): 2 201 to 250 Give (units): 4 251 to 300 Give (units): 6 301 to 350 Give (units): 8 Greater than 350 Give (units): 10 Call MD if Blood Glucose > : 350 insulin glargine 100 unit/mL (3 mL) insulin pen 10 unit subcut DAILY melatonin 5 mg tablet 5 mg PO BEDTIME PRN (Reason: insomnia) (DME) FreeStyle Lite Strips Strip Qty: 100 0RF Rx Instructions: Test four times a day or as directed. (DME) blood-glucose meter Kit Qty: 1 0RF Rx Instructions: As Directed (DME) lancets [FreeStyle Lancets] 28 gauge misc Qty: 100 0RF Rx Instructions: Test four times a day or as directed. Discontinued buprenorphine-naloxone [Suboxone] 8-2 mg film 1 film sublingual TID Qty: 63 0RF metoprolol succinate 100 mg tablet extended release 24 hr 100 mg PO DAILY Qty: 90 0RF prednisone 10 mg tablet 10 mg PO DIRECTED Qty: 20 0RF Rx Instructions: 40 mg daily x 2 days then 30 mg daily x 2 days then 20 mg daily x 2 days then 10 mg daily x 2 days No Action buprenorphine-naloxone 8-2 mg film 1 film sublingual TID Qty: 42 1RF Discharge Orders: Discharge Order (Routine); Ordered 10/13/24 Ordered By: Harley Cooper Diet: Diabetic diet Activity on Discharge: As tolerated Stand Alone Forms: Patient Portal Discharge page Print Language: Armenian Care Plan Goals: Recovery from sepsis and MRSA bacteremia and empyema. Health Concerns: MRSA bacteremia Sepsis Plan of Treatment: You will be getting IV vancomyin after dialysis for 6 weeks to treat sepsis and MRSA in the blood, ending November 17 Assessment: See above Discharge Date/Time: 10/13/24 17:12
--- NOTE | 2024-10-13 14:43 | MHC.RECOVRN ---
Pt has telehealth [facility] appt on 10/20 at 11:30AM. RN aware.
[2024-10-13] MEDS: oxyCODONE HCl Immed Release 5 MG TABLET PO (15:08)
[2024-10-13] MEDS: Collagenase Clostridium Hist. 30 GM TUBE 1 APPL TOPICAL (15:09)
[2024-10-13 15:29] VITALS: BP 100/53; PULSE 77; RESP 18; TEMP 36.9; O2SAT 98
[2024-10-13 15:40] LABS: Glucose, Whole Blood 170 mg/dL (60-115)
== END 2024-10-13 17:12 | disposition home or self-care (01) | DRG 721 ==
LOC: HO.ED 19:11 → HO.EDOVER 10-04 01:07 → HO.IMC 10-04 22:35 → HO.S3 10-09 00:01
PROVIDERS: Internal Medicine; Nurse Practitioner Family; Physician Assistant Medical; Physician Assistant Surgical; Student in an Organized Health Care Education/Training Program; Admitting Provider Internal Medicine; Emergency Provider Internal Medicine; PCP Family Medicine; Visit Provider Internal Medicine
PROC: 02HV33Z Insertion of Infusion Device into Superior Vena Cava, Percutaneous Approach (ICD-10-PCS; principal; 2024-10-08 12:30)
DX: T80.211A Bloodstream infection due to central venous catheter, initial encounter (principal); J96.01 Acute respiratory failure with hypoxia; A41.02 Sepsis due to Methicillin resistant Staphylococcus aureus; J86.9 Pyothorax without fistula; I33.0 Acute and subacute infective endocarditis; I12.0 Hypertensive chronic kidney disease with stage 5 chronic kidney disease or end stage renal disease; I48.92 Unspecified atrial flutter; J91.8 Pleural effusion in other conditions classified elsewhere; N18.6 End stage renal disease; E11.22 Type 2 diabetes mellitus with diabetic chronic kidney disease; E78.5 Hyperlipidemia, unspecified; F19.20 Other psychoactive substance dependence, uncomplicated; F11.20 Opioid dependence, uncomplicated; T40.5X1S Poisoning by cocaine, accidental (unintentional), sequela; N14.4 Toxic nephropathy, not elsewhere classified; I95.2 Hypotension due to drugs; T50.1X5A Adverse effect of loop [high-ceiling] diuretics, initial encounter; T44.7X5A Adverse effect of beta-adrenoreceptor antagonists, initial encounter; Z20.822 Contact with and (suspected) exposure to COVID-19; Z99.2 Dependence on renal dialysis; Z91.158 Patient's noncompliance with renal dialysis for other reason; Z89.511 Acquired absence of right leg below knee; Z87.891 Personal history of nicotine dependence; Z79.4 Long term (current) use of insulin; Z79.01 Long term (current) use of anticoagulants; Z79.899 Other long term (current) drug therapy
CPT/HCPCS: 0241U; 32557; 36415; 36556; 36558; 36590; 71045; 71250; 76937; 80048; 80053; 80076; 80202; 80307; 81001; 82140; 82803; 82945; 82947; 83540; 83605; 83615; 83690; 83735; 83880; 83986; 84100; 84157; 84484; 85025; 85027; 87040; 87070; 87071; 87073; 87077; 87086; 87088; 87147; 87186; 87205; 89051; 90999; 93005; 93306; 94640; 94660; 99285; C1729; C1750; C1752; C1769; C1887; J0690; J0885; J1756; J1940; J2003; J2270; J2543; J3010; J3370; P9047

== ENCOUNTER → 2024-10-03 18:20 | Outpatient (BNV) | payer MEDICAID, SELFPAY | PROVIDERS: Admitting Provider Internal Medicine; Emergency Provider Internal Medicine; PCP Family Medicine; Visit Provider Internal Medicine Cardiovascular Disease | DX: R94.31 Abnormal electrocardiogram [ECG] [EKG] (principal) | CPT/HCPCS: 93010 ==

== ENCOUNTER → 2024-10-03 19:09 | Outpatient (BNV) | payer MEDICAID, SELFPAY | PROVIDERS: Emergency Provider Internal Medicine; Visit Provider Internal Medicine | DX: R78.81 Bacteremia (principal); B95.62 Methicillin resistant Staphylococcus aureus infection as the cause of diseases classified elsewhere; J86.9 Pyothorax without fistula; N18.6 End stage renal disease; Z99.2 Dependence on renal dialysis | CPT/HCPCS: 99223; 99232; 99499 ==

== ENCOUNTER → 2024-10-03 | Outpatient (BNV) | payer MEDICAID, SELFPAY | PROVIDERS: PCP Family Medicine; Visit Provider Internal Medicine Nephrology | DX: N18.6 End stage renal disease (principal) | CPT/HCPCS: 90962 ==

== ENCOUNTER 2024-10-04 00:04 | Outpatient (BNV) | payer MEDICAID, SELFPAY | END 2024-10-06 15:00 | PROVIDERS: Admitting Provider Internal Medicine; Emergency Provider Internal Medicine; PCP Family Medicine; Visit Provider Physician Assistant Surgical | DX: R78.81 Bacteremia (principal) | CPT/HCPCS: 36590 ==

== ENCOUNTER 2024-10-04 00:04 | Outpatient (BNV) | payer MEDICAID, SELFPAY | END 2024-10-08 08:00 | PROVIDERS: Admitting Provider Internal Medicine; Emergency Provider Internal Medicine; PCP Family Medicine; Visit Provider Student in an Organized Health Care Education/Training Program | DX: N18.6 End stage renal disease (principal) | CPT/HCPCS: 36556; 76937; 77001 ==

== ENCOUNTER 2024-10-04 00:04 | Outpatient (BNV) | payer MEDICAID, SELFPAY | END 2024-10-11 09:17 | PROVIDERS: Admitting Provider Internal Medicine; Emergency Provider Internal Medicine; PCP Family Medicine; Visit Provider Physician Assistant Surgical | DX: N18.6 End stage renal disease (principal); Z99.2 Dependence on renal dialysis | CPT/HCPCS: 36558; 76937; 77001; 99152 ==

== ENCOUNTER 2024-10-04 00:04 | Outpatient (BNV) | payer MEDICAID, SELFPAY | END 2024-10-05 14:25 | PROVIDERS: Admitting Provider Internal Medicine; Emergency Provider Internal Medicine; PCP Family Medicine; Visit Provider Internal Medicine Cardiovascular Disease | DX: I37.8 Other nonrheumatic pulmonary valve disorders (principal); I27.20 Pulmonary hypertension, unspecified; R78.81 Bacteremia | CPT/HCPCS: 93306 ==

== ENCOUNTER 2024-10-04 00:04 | Outpatient (BNV) | payer MEDICAID, SELFPAY | END 2024-10-05 09:00 | PROVIDERS: Admitting Provider Internal Medicine; Emergency Provider Internal Medicine; PCP Family Medicine; Visit Provider Physician Assistant Surgical | DX: J90 Pleural effusion, not elsewhere classified (principal) | CPT/HCPCS: 32557 ==

== ENCOUNTER → 2024-10-04 00:04 | Outpatient (BNV) | payer MEDICAID, SELFPAY | PROVIDERS: Admitting Provider Internal Medicine; Emergency Provider Internal Medicine; PCP Family Medicine; Visit Provider Internal Medicine | DX: J90 Pleural effusion, not elsewhere classified (principal); J86.9 Pyothorax without fistula; N18.6 End stage renal disease; Z99.2 Dependence on renal dialysis; R78.81 Bacteremia | CPT/HCPCS: 99222 ==

== ENCOUNTER → 2024-10-04 00:04 | Outpatient (BNV) | payer MEDICAID, SELFPAY | PROVIDERS: Admitting Provider Internal Medicine; Emergency Provider Internal Medicine; PCP Family Medicine; Visit Provider Nurse Practitioner Family | DX: N18.6 End stage renal disease (principal); Z99.2 Dependence on renal dialysis; J96.01 Acute respiratory failure with hypoxia; R60.1 Generalized edema | CPT/HCPCS: 90935; 99232 ==

== ENCOUNTER → 2024-10-04 00:04 | Outpatient (BNV) | payer MEDICAID, SELFPAY | PROVIDERS: Admitting Provider Internal Medicine; Emergency Provider Internal Medicine; PCP Family Medicine; Visit Provider Surgery | DX: J90 Pleural effusion, not elsewhere classified (principal) | CPT/HCPCS: 99222; 99232 ==

== ENCOUNTER 2024-10-20 11:49 | Outpatient (AMB) | payer MEDICAID, SELFPAY ==
--- NOTE | 2024-10-20 11:49 | A.OFFVISCC_ITS ---
Intake Visit Reasons: MAT Tele Allergies No Known Allergies [No Known Allergies*] Allergy (Verified 10/03/24 18:21) HPI HPI MAT Tele: Details: Patient presents for follow up via telehealth following hospital discharge Currently prescribed Suboxone 8mg TID --suboxone started during hospital stay Says Suboxone has been very helpful with recovery Full substance history obtained during inpatient admission Has been home, keeping busy with word searches, coloring books, playing video games Attending dialysis 3x/week Review of Systems Const Reports as per HPI and Reports no additional complaints Telehealth Telehealth Telehealth Platform: Telephone Location of provider rendering services: practice address Location of patient: address on file Patient Identification confirmed using: Name, : Yes Telehealth method: voice only Patient verbally consented to treatment: Yes Patient verbally consented to billing insurance company: Yes Minutes spent on Phone/Video with Pt.: 20 Assessment & Plan Assessment & Plan (1) Opioid use disorder, severe, dependence: Code(s): F11.20 - Opioid dependence, uncomplicated Category: Medical Plan: * continue suboxone at current dose * relapse prevention discussion * follow up 2 weeks telehealth Medications: Refilled buprenorphine-naloxone 8-2 mg 1 film sublingual TID 42 ea 1RF Discontinued oxycodone Partial Fill upon patient request. Discontinued Reason: Patient Completed Course 5 mg PO Q6H PRN 10 tabs 0RF Pain, Moderate(Pain Scale 4-6) PFSH Medical History (Updated 10/20/24 @ 17:14 by Catina Cantu CNP) Opioid use disorder, severe, dependence Bacteremia Volume overload Paroxysmal atrial flutter Cardiomyopathy Pericardial effusion Atrial flutter Need for acute hemodialysis Leukocytosis Anemia Anemia Transfusion history Atrial flutter, paroxysmal COPD (chronic obstructive pulmonary disease) Constipation Callus of foot Seizure Polysubstance abuse CKD (chronic kidney disease) stage 3, GFR 30-59 ml/min Foot osteomyelitis, left Amputation of toe of right foot Diabetic ulcer of right foot Hyperglycemia due to type 2 diabetes mellitus Renal failure Sleep apnea Diabetes HTN (hypertension) Surgical History Hx of right BKA History of surgical procedure (~04/24/23) Social History Household Members: Family Household Members Other:: mother Housing: Apartment Do you presently have visiting nurse or other home services: Yes Unable to assess alcohol history related to: Unable to respond Alcohol intake: former Comment: bilateral wrist restraints/propofol drip for airway safety Patient Tobacco Use Status: Former Tobacco user Tobacco use type: Cigarette Cigarette Packs Per Day: 0.5 Cigarettes Per Day: 10.0 Years Smoked: 33 e-Cigarette/Vaping Use: Currently Using Second Hand Smoke Exposure: Yes Substance Use Type: Crack/Cocaine, Heroin, Marijuana and Opiates service: No
== END 2024-10-20 13:14 | disposition home or self-care (01) ==
PROVIDERS: PCP Family Medicine; Visit Provider Nurse Practitioner Psychiatric/Mental Health
DX: F11.20 Opioid dependence, uncomplicated (principal)
CPT/HCPCS: 99214

== ENCOUNTER → 2024-10-20 11:49 | Outpatient (BNVA) | payer MEDICAID, SELFPAY | PROVIDERS: PCP Family Medicine; Visit Provider Nurse Practitioner Psychiatric/Mental Health ==

== ENCOUNTER 2024-11-05 03:59 | Inpatient (IN) | payer MEDICAID, SELFPAY ==
[2024-11-05] VITALS (29 sets, daily range): BP systolic 79–140; BP diastolic 36–87; PULSE 61–110; RESP 12–20; TEMP 36.2–38.3; O2SAT 70–100; BMI 27.1
--- NOTE | ~2024-11-05 | CT_ITS ---
EXAMINATION: CT PELVIS WITHOUT CONTRAST CLINICAL INFORMATION: Right upper groin large 1. COMPARISON: None available. TECHNIQUE: Helical scanning was performed with submillimeter collimation through the pelvis. Sagittal and coronal multiplanar 2-D reconstructions were obtained. This CT examination was performed using dose optimization techniques as appropriate, variously including the following: *Automated exposure control *Adjustment of mA and/or kV according to patient size (this includes techniques or standardized protocols for targeted exams where dose is matched to indication/reason for exam; i.e. extremities or head) *Use of iterative reconstruction technique DLP [id number] FINDINGS: PELVIS: There is diffuse abdominal wall cellulitis extending to bilateral proximal entire right greater than left. In addition there are small open wound with gas seen along the right proximal lateral thigh on axial image 68/2 measures 1.6 cm in craniocaudad length. There is no underlying abscess or radiopaque foreign body. The bowel loops are unremarkable. The bladder is nondistended. No free fluid or free air is. There is no inguinal lymph nodes or hernia. OSSEOUS STRUCTURES: No gross bony abnormality seen. CT/CT pelvis wo IV con IMPRESSION: Cellulitis lower anterior abdominal wall extending to bilateral proximal lateral thighs. There is an small laceration along the right proximal lateral thigh but no underlying abscess or radiopaque foreign body seen. Electronically signed by: Tobias Barnett MD 11/05/2024 12:59 PM EST
--- NOTE | ~2024-11-05 | XR_ITS ---
CLINICAL HISTORY: fever 1 view chest x-ray Comparison: CR/SR - XR CHEST 1V - 10/08/24 09:19 EST Findings: Interstitial and central vascular prominence. No significant effusion. No pneumothorax. Cardiac and mediastinal contours are prominent but stable. No acute fracture. Tunneled right-sided hemodialysis catheter appears well-positioned. IMPRESSION: Mild interstitial and central vascular prominence. Correlation for mild edema. This document has been electronically signed by: Otto Fox MD on 11/05/2024 05:23:33
--- NOTE | 2024-11-05 04:20 | ED_ITS ---
HPI - SOB/Dyspnea General Chief Complaint: Dyspnea Stated Complaint: Weakness, slow response, found @ 70% O2, Dialysis Time Seen by Provider: 11/05/24 04:20 Source: patient Mode of arrival: EMS Limitations: no limitations History of Present Illness ED Provider: HPI Narrative: 44 years old man with past medical history significant for ESRD on HD (MWF), essential hypertension, hyperlipidemia, PVD, s/p right BKA, type 2 diabetes mellitus and drug abuse on Suboxone with history of MRSA bacteremia 10/26 getting vancomycin post dialysis missed his dialysis yesterday came by EMS for increased lethargy saturating 70% at room air patient is supposed to be on 2 L oxygen but it was not connected after arrival in the ER noted to have temperature of Related Data Home Medications ?Medication ?Instructions ?Recorded ?Confirmed insulin glargine 100 unit/mL (3 10 unit subcut DAILY 09/28/24 10/04/24 mL) subcutaneous pen insulin lispro 100 unit/mL See Protocol subcut TIDAC 09/28/24 10/04/24 subcutaneous pen (Humalog KwikPen (U-100) Insulin) melatonin 5 mg tablet 5 mg PO BEDTIME PRN insomnia 09/28/24 10/04/24 Previous Rx's ?Medication ?Instructions ?Recorded Dakins solution / strength #1 ea 09/25/24 amiodarone 200 mg tablet 200 mg PO DAILY #90 tabs 09/25/24 apixaban 5 mg tablet (Eliquis) 5 mg PO BID #180 tabs 09/25/24 atorvastatin 40 mg tablet 40 mg PO BEDTIME #30 tabs 09/25/24 calcitriol 0.25 mcg capsule 0.5 mcg (2 x 0.25 mcg) PO DAILY 09/25/24 #60 caps calcium acetate(phosphat bind) 667 1,334 mg (2 x 667 mg) PO TIDWM 09/25/24 mg capsule #120 caps multivitamin 1 tab PO DAILY #30 tabs 09/25/24 omeprazole 20 mg capsule,delayed 20 mg PO DAILY@0630 #30 caps 09/25/24 release pen needle, diabetic 32 gauge x #100 ea 09/25/2411/06 blood sugar diagnostic (FreeStyle #100 ea 09/29/24 Lite Strips) blood-glucose meter #1 ea 09/29/24 lancets 28 gauge (FreeStyle #100 ea 09/29/24 Lancets) metoprolol succinate 50 mg 50 mg PO DAILY #90 tabs 10/13/24 tablet,extended release 24 hr midodrine 5 mg tablet 5 mg PO BID #60 tabs 10/13/24 torsemide 20 mg tablet 80 mg PO BID #180 tabs 10/13/24 buprenorphine 8 mg-naloxone 2 mg 1 film sublingual TID #42 ea 10/20/24 sublingual film Allergies Allergy/AdvReac Type Severity Reaction Status Date / Time No Known Allergies Allergy Verified 11/05/24 04:46 [No Known Allergies*] Review of Systems 2 Review of Systems: Yes all other systems are reviewed and are negative [facility] Past Medical History Medical History Opioid use disorder, severe, dependence Bacteremia Volume overload Paroxysmal atrial flutter Cardiomyopathy Pericardial effusion Atrial flutter Need for acute hemodialysis Leukocytosis Anemia Anemia Transfusion history Atrial flutter, paroxysmal COPD (chronic obstructive pulmonary disease) Constipation Callus of foot Seizure Polysubstance abuse CKD (chronic kidney disease) stage 3, GFR 30-59 ml/min Foot osteomyelitis, left Amputation of toe of right foot Diabetic ulcer of right foot Hyperglycemia due to type 2 diabetes mellitus Renal failure Sleep apnea Diabetes HTN (hypertension) Surgical History Hx of right BKA History of surgical procedure (~04/24/23) Social History Social History Household Members: Family Household Members Other:: mother Housing: Apartment Do you presently have visiting nurse or other home services: Yes Unable to assess alcohol history related to: Unable to respond Alcohol intake: former Comment: bilateral wrist restraints/propofol drip for airway safety Patient Tobacco Use Status: Former Tobacco user Tobacco use type: Cigarette Cigarette Packs Per Day: 0.5 Cigarettes Per Day: 10.0 Years Smoked: 33 e-Cigarette/Vaping Use: Currently Using Second Hand Smoke Exposure: Yes Substance Use Type: Crack/Cocaine, Heroin, Marijuana and Opiates Advance Directives: No Advance Directives Information Provided: Yes Do you have a plan to hurt others: No Plan service: No Physical Exam 2 Vital Signs: Vital Signs: Last Vital Signs Temp 98.8 F 11/05/24 06:00 Pulse 88 11/05/24 06:00 Resp 18 11/05/24 06:00 BP 86/41 L 11/05/24 06:45 Pulse Ox 95 11/05/24 06:00 O2 Del Method BiPAP 11/05/24 06:00 O2 Flow Rate 3 11/05/24 05:01 Oxygen Flow Rate 4 11/05/24 04:40 BMI result Body Mass Index 27.1 Appearance: Alert. Oriented X3. No acute distress. Eyes:Pallor+ ENT: Pharynx normal. Oral Mucosa moist Neck: Normal inspection. Neck supple. CVS: Normal heart rate and rhythm. Pulses normal. Respiratory: No respiratory distress. Equal air entry bilateral, no wheezing/rales/rhonchi Shiley catheter in place Abdomen: Soft and nontender. Bowel sounds are present, no mass palpable, no CVA tenderness Skin: Skin warm and dry. Normal skin color. Normal skin turgor. Extremities: + lower extremity edema. No calf tenderness right BKA left metatarsal amputation Neuro: Oriented X 3. No motor deficit. No sensory deficit.No cerebellar signs , cranial nerves II-XII intact Medications Administered Generic Name Dose Route Start Last Admin Trade Name Freq PRN Reason Stop Dose Admin Sodium Chloride 500 mls @ 250 mls/hr 11/05/24 06:45 11/05/24 06:45 Ns IVCONT 11/05/24 08:44 250 mls/hr .Q2H LYSSA Administration Discontinued Medications Generic Name Dose Route Start Last Admin Trade Name Freq PRN Reason Stop Dose Admin Acetaminophen 650 mg 11/05/24 04:38 11/05/24 04:49 Acetaminophen 325 Mg Tablet PO 11/05/24 04:39 650 mg ONCE ONE Administration Ceftriaxone Sodium 1 gm 11/05/24 04:49 11/05/24 04:57 Ceftriaxone Sodium 1 Gm Vial IVPUSH 11/05/24 04:50 1 gm ONCE ONE Administration Vancomycin HCl 1,000 mg/ 270 mls @ 270 mls/hr 11/05/24 04:49 11/05/24 06:10 Sodium Chloride IV 11/05/24 05:48 Infused ONCE ONE Infusion Midodrine 10 mg 11/05/24 06:38 11/05/24 06:45 Midodrine Hcl 10 Mg Tablet PO 11/05/24 06:39 10 mg ONCE ONE Administration Medical Decision Making Medical Decision Making [facility] Narrative: Patient's fluid overload with fever and respiratory acidosis placed on BiPAP noted to have fever with history of MRSA bacteremia missed his dialysis saturation improved to 95% patient has received IV antibiotics vancomycin case discussed with Dr. Mi rip/mould operator will do dialysis today Patient noted to have transient hypotension after BiPAP was placed which is likely the cause patient is supposed to take midodrine will give midodrine give 500 cc of normal saline pending admission patient is still hypotensive with blood pressure systolic and 85 will start Levophed drip patient is signed out to Dr. Muniz for further disposition Differential Diagnosis Differential Diagnoses: The differential diagnosis associated with the presentation includes Bacteremia/fluid overload/metabolic acidosis Admission/Observation Consideration of admission/observation: Escalation of care including admission/observation considered Consult Healthcare Provider Management of the patient was discussed with: Ladies Underwear Operator Lab Data [facility] Lab Attestation statement: I reviewed the patient's lab results. 11/05/24 04:26 11/05/24 04:26 Labs: Lab Results 11/05/24 11/05/24 11/05/24 Range/Units 04:26 04:33 04:36 WBC 16.3 H (4.8-10.8) X10*3/uL RBC 2.71 L (4.60-5.80) X10*6/uL Hgb 7.1 L (14.0-18.0) g/dl Hct 24.6 L (42.0-52.0) % MCV 90.8 (80.0-98.0) fL MCH 26.2 L (27.0-33.0) pg MCHC 28.9 L (31.0-36.0) g/dl RDW 16.0 (11.0-16.0) % Plt Count 357 (160-400) X10*3/uL MPV 10.1 (9.4-12.4) fL Immature Gran % (Auto) 0.7 H (0.0-0.4) % Neut % (Auto) 86.7 H (45-73) % Lymph % (Auto) 6.2 L (20-40) % [place] % (Auto) 5.5 (2-11) % Eos % (Auto) 0.7 (0-4) % Baso % (Auto) 0.2 (0-2) % Lymph # (Auto) 1.0 L (1.2-4.9) X10*3/uL [place] # (Auto) 0.9 (0.1-1.2) X10*3/uL Eos # (Auto) 0.1 (0.0-0.4) X10*3/uL Baso # (Auto) 0.0 (0.0-0.2) X10*3/uL Abs Immat Gran (auto) 0.11 H (0.00-0.03) X10*3/uL Absolute Neuts (auto) 14.2 H (2.0-8.3) x10*3/uL Absolute Nucleated RBC 0.000 (0.0-0.012) X10*3/uL Nucleated RBC % (auto) 0.0 (0.0-0.2) /100WBC VBG pH 7.27 L (7.32-7.43) VBG pCO2 70 mmHg VBG pO2 82 mmHg VBG HCO3 33 H (22-26) mmol/L VBG O2 Saturation 98.0 % VBG Base Excess 4.7 mmol/L Sodium 128 L (135-145) mmol/L Potassium 4.2 (3.3-5.1) mmol/L Chloride 91 L (96-108) mmol/L Carbon Dioxide 27 (22-29) mmol/L Anion Gap 14 (12-20) BUN 36 H (9-16) mg/dL Creatinine 5.77 H* (0.5-1.4) mg/dL Estim Creat Clear Calc 15.9 Estimated GFR 11 Random Glucose 201 H (60-115) mg/dL Lactic Acid 0.8 (0.5-2.0) mmol/L Calcium 7.8 L D (8.4-10.2) mg/dL Total Bilirubin 0.2 (0.0-1.0) mg/dL AST 20 (5-37) U/L ALT < 6 (0-40) U/L Alkaline Phosphatase 134 H (39-117) U/L Troponin I High Sens 182.8 H* (<3.5-35.0) ng/L B-Natriuretic Peptide 2184 H (<100) pg/mL Total Protein 7.4 (6.5-8.0) g/dL Albumin 2.1 L (3.5-5.0) g/dL Influenza Type A (PCR) NEGATIVE (Negative) Influenza Type B (PCR) NEGATIVE (Negative) RSV RNA Qual (PCR) NEGATIVE (Negative) SARS-CoV-2 RNA (RT-PCR) NEGATIVE (Negative) Independent Interpretation I performed an independent interpretation of an: EKG and Plain X-Ray Interpretation: Normal sinus rhythm heart rate 96 beats per minute normal interval normal axis no acute ST-T changes no acute ischemia Radiology Impression Discussion of test interpretation with radiology: I have reviewed the radiologist's reading. Radiologist Impression: [address] [address] XRay Report Signed Patient: Deandre Luong MR#: [id number] : 1980 Acct:[id number] Age/Sex: 44 / M ADM Date: 11/05/24 Loc: .ED Attending Dr: Ordering Physician: Zander Christianson MD Date of Service: 11/05/24 Procedure(s): XR chest 1V Accession Number(s): [id number] cc: Zander Christianson MD~ CLINICAL HISTORY: fever 1 view chest x-ray Comparison: CR/SR - XR CHEST 1V - 10/08/24 09:19 EST Findings: Interstitial and central vascular prominence. No significant effusion. No pneumothorax. Cardiac and mediastinal contours are prominent but stable. No acute fracture. Tunneled right-sided hemodialysis catheter appears well-positioned. IMPRESSION: Mild interstitial and central vascular prominence. Correlation for mild edema. Discharge Plan Discharge Clinical Impression: ESRD (end stage renal disease) on dialysis, MRSA bacteremia, Acidosis, metabolic, with respiratory acidosis Patient Disposition: Still a Patient Prescriptions: No Action metoprolol succinate 50 mg tablet extended release 24 hr 50 mg PO DAILY Qty: 90 0RF midodrine 5 mg Tablet 5 mg PO BID Qty: 60 0RF torsemide 20 mg Tablet 80 mg PO BID Qty: 180 0RF Protocol: Hold for SBP< HOLD for SBP < : 100 multivitamin Tablet 1 tab PO DAILY Qty: 30 0RF atorvastatin 40 mg tablet 40 mg PO BEDTIME Qty: 30 0RF amiodarone 200 mg tablet 200 mg PO DAILY Qty: 90 0RF omeprazole 20 mg capsule,delayed release(DR/EC) 20 mg PO DAILY@0630 Qty: 30 0RF calcitriol 0.25 mcg Capsule 0.5 mcg PO DAILY Qty: 60 0RF calcium acetate(phosphat bind) 667 mg Capsule 1,334 mg PO TIDWM Qty: 120 0RF (DME) pen needle, diabetic 32 gauge x 1/4 needle Qty: 100 0RF Rx Instructions: Use four times a day or as directed. Eliquis 5 mg Tablet 5 mg PO BID Qty: 180 0RF (DME) Dakins solution 1/4 strength 500ml See Rx Instructions .Route .MEDSUPPLY Qty: 1 0RF Rx Instructions: As directed insulin lispro [Humalog KwikPen Insulin] 100 unit/mL insulin pen See Protocol subcut TIDAC Protocol: Insulin Correction Scale Less than or equal to 110 ---- Give (units): 0 111 to 150 Give (units): 0 151 to 200 Give (units): 2 201 to 250 Give (units): 4 251 to 300 Give (units): 6 301 to 350 Give (units): 8 Greater than 350 Give (units): 10 Call MD if Blood Glucose > : 350 insulin glargine 100 unit/mL (3 mL) insulin pen 10 unit subcut DAILY melatonin 5 mg tablet 5 mg PO BEDTIME PRN (Reason: insomnia) (DME) FreeStyle Lite Strips Strip Qty: 100 0RF Rx Instructions: Test four times a day or as directed. (DME) blood-glucose meter Kit Qty: 1 0RF Rx Instructions: As Directed (DME) lancets [FreeStyle Lancets] 28 gauge misc Qty: 100 0RF Rx Instructions: Test four times a day or as directed. buprenorphine-naloxone 8-2 mg film 1 film sublingual TID Qty: 42 1RF Print Language: Portuguese
[2024-11-05 04:34] LABS: MANUAL DIFF FLAG NO
[2024-11-05 04:35] LABS: Basophils Percent Auto 0.2 % (0-2); Eosinophils Absolute Auto 0.1 X10*3/uL (0.0-0.4); Eosinophils Percent Auto 0.7 % (0-4); Hematocrit 24.6 % (42.0-52.0); Hemoglobin 7.1 g/dl (14.0-18.0); Imm Gran Abs Auto 0.11 X10*3/uL (0.00-0.03); Imm Gran Pct Auto 0.7 % (0.0-0.4); Lymphocytes Percent Auto 6.2 % (20-40); Mean Corpuscular HGB Conc 28.9 g/dl (31.0-36.0); Mean Corpuscular Hemoglobin 26.2 pg (27.0-33.0); Mean Corpuscular Volume 90.8 fL (80.0-98.0); Mean Platelet Volume 10.1 fL (9.4-12.4); Monocytes Absolute Auto 0.9 X10*3/uL (0.1-1.2); Monocytes Percent Auto 5.5 % (2-11); Neutrophils Absolute Auto 14.2 x10*3/uL (2.0-8.3); Neutrophils Percent Auto 86.7 % (45-73); Platelet Count 357 X10*3/uL (160-400); Red Blood Count 2.71 X10*6/uL (4.60-5.80); White Blood Count 16.3 X10*3/uL (4.8-10.8)
[2024-11-05 04:39] LABS: VBG Base Excess 4.7 mmol/L; VBG HCO3 33 mmol/L (22-26); VBG pCO2 70 mmHg; VBG pH 7.27 (7.32-7.43); VBG pO2 82 mmHg
[2024-11-05 04:40] LABS: Venous Blood Gas Refer to POC result
[2024-11-05] MEDS: Acetaminophen 325 MG TABLET 650 MG PO (04:49)
[2024-11-05 04:52] LABS: Lactic Acid 0.8 mmol/L (0.5-2.0)
[2024-11-05 04:57] LABS: Alanine Aminotransferase < 6 U/L (0-40); Albumin Level 2.1 g/dL (3.5-5.0); Alkaline Phosphatase 134 U/L (39-117); Anion Gap 14 (12-20); Aspartate Amino Transferase 20 U/L (5-37); Bilirubin Total 0.2 mg/dL (0.0-1.0); Blood Urea Nitrogen 36 mg/dL (9-16); Calcium 7.8 mg/dL (8.4-10.2); Carbon Dioxide 27 mmol/L (22-29); Chloride 91 mmol/L (96-108); Creatinine Clr Calc Pharmacy 15.9; Estimated Glomerular Filt Rate 11; Glucose Random 201 mg/dL (60-115); Potassium 4.2 mmol/L (3.3-5.1); Sodium 128 mmol/L (135-145); Total Protein 7.4 g/dL (6.5-8.0)
[2024-11-05] MEDS: cefTRIAXone sodium 1 GM VIAL IVPUSH (04:57)
[2024-11-05 04:58] LABS: B Type Natriuretic Peptide 2184 pg/mL (<100)
[2024-11-05] MEDS: vancomycin HCL 1,000 MG in 0.9 % Sodium Chloride 250 ML 270 MG IV (04:59)
[2024-11-05 05:02] LABS: Troponin-I High Sensitivity 182.8 ng/L (<3.5-35.0)
--- NOTE | 2024-11-05 05:08 | ECG_ITS ---
Test Reason : SOB Blood Pressure : / mmHG Vent. Rate : 096 BPM Atrial Rate : 096 BPM P-R Int : 178 ms QRS Dur : 094 ms QT Int : 346 ms P-R-T Axes : 027 067 069 degrees QTc Int : 437 ms Normal sinus rhythm Normal ECG When compared with ECG of 03-OCT-2024 18:29, Nonspecific T wave abnormality no longer evident in Lateral leads Referred By: Zander Christianson Electronically Signed By:YUNIER SIMON MD
[2024-11-05 05:20] LABS: Influenza A PCR NEGATIVE (Negative); Influenza B PCR NEGATIVE (Negative); Resp Syncy Virus RNA Qual PCR NEGATIVE (Negative); SARS COV2 PCR INHOUSE NEGATIVE (Negative)
--- NOTE | 2024-11-05 05:59 | PC.NURSE ---
Late note pt placed on BiPAP. BP soft, MD aware.
[2024-11-05] MEDS: Midodrine HCl 10 MG TABLET PO (06:45)
[2024-11-05] MEDS: 0.9 % Sodium Chloride 500 ML 250 ML IVCONT (06:45)
[2024-11-05] MEDS: Norepinephrine Bitartrate/D5W 8 MG/250 ML PLAST..BAG 7.82 MG IVCONT (07:14)
[2024-11-05] MEDS: Albumin Human 25 % 100 ML 133.33 ML IV ×2 (07:52→08:39)
--- NOTE | 2024-11-05 08:07 | PC.NURSE ---
Resumed care of pt at 0700. Pt arousable to verbal stimuli, remains on bipap. Lethargic/slow to respond to commands/following directions. Respirations even and unlabored, no signs of distress/sob, O2 sat remains 94-97% on bipap, normal sinus rhythm on hospital monitor, HR- 70s. Additional IV line placed in left wrist, 20g. Pt BP noted to be 80s/40s. MD Farr and MD Pereyra made aware of pt BP. Verbal order to start levophed drip and Albumin. Refer to [facility] for Levophed titration. BP remains 110s/60s, MAP >65 on Levophed drip 0.09mcg/kg/min, BP cycling q5 min to monitor. Plans for admit and dialysis today, call arcos within reach, all needs met at this time.
--- NOTE | 2024-11-05 08:43 | PC.NURSE ---
Verbal order per MD to titrate Levophed down. Refer to MAR for titration, BP remains 110s/60s.
[2024-11-05 08:58] LABS: Venous Blood Gas Refer to POC result
[2024-11-05 08:59] LABS: VBG Base Excess 4.3 mmol/L; VBG HCO3 31 mmol/L (22-26); VBG pCO2 59 mmHg; VBG pH 7.33 (7.32-7.43); VBG pO2 77 mmHg
[2024-11-05] MEDS: Piperacillin Sodium/Tazobactam 2.25 GM in 0.9 % Sodium Chloride 50 ML IV ×2 (11:45→22:46)
--- NOTE | 2024-11-05 11:57 | PC.NURSE ---
Pt more alert, responding to stimuli, asking for BIPAP off. BIPAP removed and placed on 2L NC with good effect, O2 sat maintained mid 90s, respiratory therapy and MD aware. Levophed drip paused, BP 140/74, MD aware. BP cycling q 5 to monitor for any BP changes. Plan for CT scan. Call arcos within reach, all needs met at this time.
--- NOTE | 2024-11-05 12:56 | PC.NURSE ---
Pt BP noted to be trending downwards with levophed drip paused, last BP 95/49. MD Pereyra made aware, per MD monitor BP q 5 for changes. Call arcos within reach, all needs met at this time, family at bedside.
--- NOTE | 2024-11-05 14:15 | PM.IMHP ---
History of Present Illness Date of Service: 11/05/24 Chief Complaint: confusion,hypoxia, 44 years old man with past medical history significant for ESRD on HD (MWF), essential hypertension, hyperlipidemia, PVD, s/p right BKA, type 2 diabetes mellitus and drug abuse on Suboxone. He was recently hospitalized from October 04 to with MRSA bacteremia/Sepsis and pulmonic valve vegetation. He was discharged to complete a 6 weeks of post dialysis vancomycin ending November 17. According to his mother at the bedside, while being ready to be transported to dialysis, he was very lethargic and not responding properly and was hypoxic found to be hypoxic with O2 sat of 70% on room air, and reportedly oxygen tubing not attached, he is supposed to be on 2 liters by nasal canula. In the ED, his blood pressure dropped to 79/41 and given albumin and NS saline 500, midodrine and given peristent low BP was initiated on Levophed. He is alsso administered Ceftriaxone, Zosyn and Vancomycin. He has since been taken off levophed for at least 2 hours and maintaining adequate blood pressure. He has a wound in his inner tigh that appear infected and back ulcer that appear worse--see picture below. He is due fo dialysis today (Dialysis provider notified) Review of Systems Review of Systems: Gen: no fever Resp: no sob, no cough CV: no chest, no EGAN, no leg edema GI: No n/v, no abd pain Neuro: No confusion Yes all other systems are reviewed and are negative [facility] Medical History Opioid use disorder, severe, dependence Bacteremia Volume overload Paroxysmal atrial flutter Cardiomyopathy Pericardial effusion Atrial flutter Need for acute hemodialysis Leukocytosis Anemia Anemia Transfusion history Atrial flutter, paroxysmal COPD (chronic obstructive pulmonary disease) Constipation Callus of foot Seizure Polysubstance abuse CKD (chronic kidney disease) stage 3, GFR 30-59 ml/min Foot osteomyelitis, left Amputation of toe of right foot Diabetic ulcer of right foot Hyperglycemia due to type 2 diabetes mellitus Renal failure Sleep apnea Diabetes HTN (hypertension) Surgical History Hx of right BKA History of surgical procedure (~04/24/23) Social History Household Members: Family Household Members Other:: lives with mother Housing: House Unable to assess alcohol history related to: Unable to respond Alcohol intake: former Comment: bilateral wrist restraints/propofol drip for airway safety Patient Tobacco Use Status: Former Tobacco user Tobacco use type: Cigarette Cigarette Packs Per Day: 0.5 Cigarettes Per Day: 10.0 Years Smoked: 33 e-Cigarette/Vaping Use: Currently Using Second Hand Smoke Exposure: Yes Substance Use Type: Crack/Cocaine, Heroin, Marijuana and Opiates service: No Meds Allergies Allergy/AdvReac Type Severity Reaction Status Date / Time No Known Allergies Allergy Verified 11/05/24 04:46 [No Known Allergies*] Active Medications: Current Medications Norepinephrine Bitartrate (Levophed) 8 mg in 250 mls @ 0 mls/hr IVCONT .Q0M LYSSA; Protocol Last Titration: 11/05/24 11:56 Dose: 0 mcg/kg/min, 0 mls/hr Home Medications ?Medication ?Instructions ?Recorded ?Confirmed ?Last Taken ?Type insulin glargine 100 unit/mL (3 10 unit subcut DAILY 09/28/24 11/05/24 11/04/24 History mL) subcutaneous pen insulin lispro 100 unit/mL See Protocol subcut TIDAC 09/28/24 11/05/24 11/04/24 History subcutaneous pen (Humalog KwikPen (U-100) Insulin) melatonin 5 mg tablet 5 mg PO BEDTIME PRN insomnia 09/28/24 11/05/24 11/04/24 History Physical Exam Vital Signs and Narrative: Vital Signs: Last Vital Signs Temp 97.7 F 11/05/24 12:33 Pulse 63 11/05/24 13:34 Resp 16 11/05/24 13:34 BP 110/50 L 11/05/24 13:34 Pulse Ox 95 11/05/24 13:34 O2 Del Method Nasal Cannula 11/05/24 13:34 O2 Flow Rate 2 11/05/24 13:34 Oxygen Flow Rate 4 11/05/24 04:40 BMI result Body Mass Index 27.1 Const: Other: Constitutional: Alert, in no distress, overweight. Mental Status: Oriented to person, place and time. Eyes: Pupils are equal, round and reactive to light. Ear, Nose and Throat: Oropharynx clear, mucous membranes moist. Ears and nose without eformities. Trachea midline. Respiratory: Clear to auscultation. No wheezing, rales or rhonchi. Cardiovascular: S1 S2 regular. No murmurs, rubs or gallops. Gastrointestinal: Abdomen soft, non-tender, non-distended. Normal bowel sounds.? Neurologic: Cranial nerves II-XII grossly intact. No focal neurological deficits. Moves all extremities spontaneously.? Skin: inner tigh, scrotum .? Musculoskeletal: No cyanosis or clubbing. Psychiatric: Normal mood and affect? Results Labs 11/06/24 07:11 11/06/24 07:11 Labs: Laboratory Results - last 24 hr 11/05/24 11/05/24 11/05/24 04:26 04:33 04:36 MCV 90.8 MCH 26.2 L MCHC 28.9 L RDW 16.0 Plt Count 357 MPV 10.1 Immature Gran % (Auto) 0.7 H Neut % (Auto) 86.7 H Lymph % (Auto) 6.2 L [place] % (Auto) 5.5 Eos % (Auto) 0.7 Baso % (Auto) 0.2 Lymph # (Auto) 1.0 L [place] # (Auto) 0.9 Eos # (Auto) 0.1 Baso # (Auto) 0.0 Abs Immat Gran (auto) 0.11 H Absolute Neuts (auto) 14.2 H Absolute Nucleated RBC 0.000 Nucleated RBC % (auto) 0.0 VBG pH 7.27 L VBG pCO2 70 VBG pO2 82 VBG HCO3 33 H VBG O2 Saturation 98.0 VBG Base Excess 4.7 Anion Gap 14 Estim Creat Clear Calc 15.9 Estimated GFR 11 Random Glucose 201 H Lactic Acid 0.8 Calcium 7.8 L D Total Bilirubin 0.2 AST 20 ALT < 6 Alkaline Phosphatase 134 H Troponin I High Sens 182.8 H* B-Natriuretic Peptide 2184 H Total Protein 7.4 Albumin 2.1 L Influenza Type A (PCR) NEGATIVE Influenza Type B (PCR) NEGATIVE RSV RNA Qual (PCR) NEGATIVE SARS-CoV-2 RNA (RT-PCR) NEGATIVE 11/05/24 08:54 MCV MCH MCHC RDW Plt Count MPV Immature Gran % (Auto) Neut % (Auto) Lymph % (Auto) [place] % (Auto) Eos % (Auto) Baso % (Auto) Lymph # (Auto) [place] # (Auto) Eos # (Auto) Baso # (Auto) Abs Immat Gran (auto) Absolute Neuts (auto) Absolute Nucleated RBC Nucleated RBC % (auto) VBG pH 7.33 VBG pCO2 59 VBG pO2 77 VBG HCO3 31 H VBG O2 Saturation 97.0 VBG Base Excess 4.3 Anion Gap Estim Creat Clear Calc Estimated GFR Random Glucose Lactic Acid Calcium Total Bilirubin AST ALT Alkaline Phosphatase Troponin I High Sens B-Natriuretic Peptide Total Protein Albumin Influenza Type A (PCR) Influenza Type B (PCR) RSV RNA Qual (PCR) SARS-CoV-2 RNA (RT-PCR) Imaging Radiologist's Impressions: Impressions Pelvis CT 11/05/24 11:21 IMPRESSION: Cellulitis lower anterior abdominal wall extending to bilateral proximal lateral thighs. There is an small laceration along the right proximal lateral thigh but no underlying abscess or radiopaque foreign body seen. Electronically signed by: Tobias Barnett MD 11/05/2024 12:59 PM [facility] Assessment and Plan (1) Sepsis: Status: Acute (2) Foot osteomyelitis, left: Status: Acute (3) MRSA bacteremia: Status: Acute Plan 44 y/o man with past medical history significant for ESRD on HD (MWF), diabetes, polysubstance abuse, actively being treated for MRSA and endocarditis here with septic shock possible from unresolved MRSA bacteremia, new infection possible skin as source, Septic shock likely multiple etiology, previous MRSA, abdominal and inner tigh cellulitis -Continue Vancomyin and Zosyn, follow culture, may need ID evaluation ESRD--HD MWF, Paroxysmal atrial flutter. Continue amiodarone, and Eliquis HypOtension--requiring vasopressors, continue Midodrine and hold bp meds Elevated troponin, chronic. No chest pain. Likely secondary to end-stage renal disease. History of drug abuse. Continue Suboxone. Addiction med consult, check utox Pressure ulcer, nursing wound protocol -surgery consult for possible debridment Type 2 diabetes mellitus. -BG checks before meals at bedtime. -Insulin sliding scale and Lantus. Diabetic diet Hyperlipidemia. Continue atorvastatin. Right BKA. no issues DVT prophylaxis: Eliquis Code status: Full Need for inpt: Septic shock Quality Stroke Does the patient have a stroke diagnosis?: No VTE Prior VTE?: No VTE Risk Level:: Medical - moderate - high VTE Device Contraindication: Treatment Not Indicated VTE Drug Contraindication: N/A - Med Ordered
--- NOTE | 2024-11-05 15:05 | PC.NURSE ---
PT TO DIALYSIS ON A TELE MONITOR
--- NOTE | 2024-11-05 15:38 | PHA.MEDREC ---
Pharmacy Consult ? Medication Reconciliation Pharmacy has completed the medication reconciliation. Both patient and mother were poor historians. Utilized discharge packet from 10/13/24, called [facility], they filled every medication from discharge packet.
--- NOTE | 2024-11-05 16:16 | PM.CNNEP ---
History of Present Illness Reason for Consult Consult date: 11/05/24 Chief Complaint Chief complaint: Septic shock History of Present Illness Narrative: 44 years old with ESRD on HD (MWF in [facility] ), essential hypertension, PAD, s/p right BKA, type 2 diabetes mellitus and drug abuse on Suboxone. He was recently hospitalized from October 04 to with MRSA bacteremia/Sepsis and pulmonic valve vegetation. He was discharged to complete a 6 weeks of post dialysis vancomycin ending November 17. He was found to be very lethargic and not responding properly and EMS was called. He was found to be hypoxic with O2 sat of 70% on room air. In the ED, his blood pressure dropped to 79/41 and given albumin and NS saline 500, midodrine and given peristent low BP was initiated on Levophed. He is also was administered Ceftriaxone, Zosyn and Vancomycin. He has since been taken off levophed for at least 2 hours and maintaining adequate blood pressure. He has a wound in his inner thigh that appear infected and back ulcer that appear worse. He is due dialysis today. Nephrology has been consulted to assist in his clinical care during his current hospital stay Review of Systems Review of Systems Yes all other systems are reviewed and are negative PMFSH Past Medical History Medical History Opioid use disorder, severe, dependence Bacteremia Volume overload Paroxysmal atrial flutter Cardiomyopathy Pericardial effusion Atrial flutter Need for acute hemodialysis Leukocytosis Anemia Anemia Transfusion history Atrial flutter, paroxysmal COPD (chronic obstructive pulmonary disease) Constipation Callus of foot Seizure Polysubstance abuse CKD (chronic kidney disease) stage 3, GFR 30-59 ml/min Foot osteomyelitis, left Amputation of toe of right foot Diabetic ulcer of right foot Hyperglycemia due to type 2 diabetes mellitus Renal failure Sleep apnea Diabetes HTN (hypertension) Surgical History Surgical History Hx of right BKA History of surgical procedure (~04/24/23) Social History Social History Household Members: Family Household Members Other:: mother Housing: Apartment Do you presently have visiting nurse or other home services: Yes Unable to assess alcohol history related to: Unable to respond Alcohol intake: former Comment: bilateral wrist restraints/propofol drip for airway safety Patient Tobacco Use Status: Former Tobacco user Tobacco use type: Cigarette Cigarette Packs Per Day: 0.5 Cigarettes Per Day: 10.0 Years Smoked: 33 e-Cigarette/Vaping Use: Currently Using Second Hand Smoke Exposure: Yes Substance Use Type: Crack/Cocaine, Heroin, Marijuana and Opiates Advance Directives: No Advance Directives Information Provided: Yes Do you have a plan to hurt others: No Plan service: No Meds Allergies Allergy/AdvReac Type Severity Reaction Status Date / Time No Known Allergies Allergy Verified 11/05/24 04:46 [No Known Allergies*] Active Medications: Current Medications Acetaminophen (Acetaminophen 325 Mg Tablet) 650 mg PO Q6H PRN PRN Reason: Pain, Mild 1-3,fever,headache Al Hydroxide/Mg Hydroxide (Magnesium Hydrox/Alum Hydrox 30 Ml Oral.Susp) 30 ml PO Q4H PRN PRN Reason: Heartburn Calcium Carbonate (Calcium Carbonate 750 Mg Tab.Chew) 750 mg PO Q4H PRN PRN Reason: Heartburn Norepinephrine Bitartrate (Levophed) 8 mg in 250 mls @ 0 mls/hr IVCONT .Q0M COUNT INCLUDES THE [facility]; Protocol Last Titration: 11/05/24 11:56 Dose: 0 mcg/kg/min, 0 mls/hr Magnesium Hydroxide (Milk Of Magnesia 30 Ml Oral.Susp) 30 ml PO DAILY PRN PRN Reason: Constipation Melatonin (Melatonin 3 Mg Tablet) 6 mg PO BEDTIME PRN PRN Reason: Insomnia Ondansetron HCl (Ondansetron Hcl 4 Mg/2 Ml Vial) 4 mg IVPUSH Q8H PRN PRN Reason: Nausea and Vomiting Polyethylene Glycol (Polyethylene Glycol 3350 17 Gm Powd.Pack) 17 gm PO DAILY PRN PRN Reason: Constipation Sodium Chloride (0.9 % Sodium Chloride Flush 3 Ml Syringe) 3 ml IVFLUSH [facility] Home Medications ?Medication ?Instructions ?Recorded ?Confirmed ?Last Taken ?Type insulin glargine 100 unit/mL (3 10 unit subcut DAILY 09/28/24 11/05/24 11/04/24 History mL) subcutaneous pen insulin lispro 100 unit/mL See Protocol subcut TIDAC 09/28/24 11/05/24 11/04/24 History subcutaneous pen (Humalog KwikPen (U-100) Insulin) melatonin 5 mg tablet 5 mg PO BEDTIME PRN insomnia 09/28/24 11/05/24 11/04/24 History Physical Exam Vital Signs: Last Vital Signs Temp 97.2 F 11/05/24 14:19 Pulse 77 11/05/24 14:19 Resp 12 11/05/24 14:19 BP 106/55 L 11/05/24 14:19 Pulse Ox 97 11/05/24 14:19 O2 Del Method Nasal Cannula 11/05/24 14:19 O2 Flow Rate 2 11/05/24 14:19 Oxygen Flow Rate 4 11/05/24 04:40 BMI result Body Mass Index 27.1 Const General: no acute distress Orientation/consciousness: patient oriented x3 Eyes EOM: EOMs intact bilaterally Resp Auscultation: diminished lung sounds Cardio Rate: regular rate GI Palpation (GI): Soft to palpation Neuro General: patient oriented x3 Results Lab Results 11/05/24 04:26 11/05/24 04:26 Lab results: Chemistry 11/05/24 04:26 Sodium 128 L Potassium 4.2 Carbon Dioxide 27 BUN 36 H Creatinine 5.77 H* Calcium 7.8 L D Hematology 11/05/24 04:26 WBC 16.3 H Hgb 7.1 L Plt Count 357 Assessment and Plan (1) ESRD on dialysis: Status: Acute Plan Usually gets HD on MWF ( [facility]) Shall dialyze today; Renal Diet( 2 Gram Na/2 Gram K/Phos restricted/fluid restriction 1.5 L in 24 hours) Shall optimize volume status on HD ; Phos binders with meals; Vancomycin post HD( will need 500 mg after HD today) C/W rest of current supportive care for now. Procedures Date of Service Date of Service: 11/05/24
[2024-11-05 20:42] LABS: Vancomycin Random 16.1 mcg/mL (15-20)
[2024-11-05 20:55] LABS: Glucose, Whole Blood 126 mg/dL (60-115)
[2024-11-05 22:02] LABS: Lactic Acid 0.7 mmol/L (0.5-2.0)
[2024-11-05] MEDS: Atorvastatin Calcium 40 MG TABLET PO (22:20)
[2024-11-05] MEDS: Apixaban 5 MG TABLET PO (22:20)
[2024-11-05] MEDS: Buprenorphine/Naloxone 8/2 mg FILM 1 FILM SUBLINGUAL (22:20)
[2024-11-05] MEDS: calcitrioL 0.25 MCG CAPSULE 0.5 MCG PO (22:25)
[2024-11-05] MEDS: Calcium Acetate 667 MG CAPSULE 1334 MG PO (22:26)
[2024-11-05] MEDS: Midodrine HCl 5 MG TABLET PO (22:27)
[2024-11-05] MEDS: Amiodarone HCL 200 MG TABLET PO (22:27)
[2024-11-05] MEDS: Acetaminophen 1,000 MG/100 ML PIGGYBACK 400 MG IV (22:30)
[2024-11-06] VITALS (9 sets, daily range): BP systolic 101–134; BP diastolic 50–68; PULSE 71–84; RESP 16–19; TEMP 36.1–37.6; O2SAT 96–100
[2024-11-06 00:45] LABS: Glucose, Whole Blood 116 mg/dL (60-115)
--- NOTE | 2024-11-06 03:03 | PC.NURSE ---
Late entry; 11/05/24 at about 2030, Patient admitted to Room 462 from dialysis. Patient sleepy, fatigued, answering some questions for admission assessment. Patient alert and oriented x3 but vague, poor historian. Unable to obtain report from previous RN due to patient coming from dialysis. Vitals take, temperature of 101, Patient with overdue medications, Dr. Duvall notified. Per Dr. Duvall administer late medications, hold torsemide. Patient more awake about an hour later, administered p.o. medications with water without difficulty, no issues noted with swallowing. Patient repositioned, skin care provided; patient with large inner thighs wound and bilateral buttock/coccyx wound; photos in H&P. Foam dressing applied, male purewick applied, interdry to abd folds.
[2024-11-06] MEDS: Piperacillin Sodium/Tazobactam 2.25 GM in 0.9 % Sodium Chloride 50 ML IV ×3 (05:35→20:56)
[2024-11-06] MEDS: Omeprazole 20 MG CAPSULE.DR PO (05:35)
[2024-11-06 07:40] LABS: Glucose, Whole Blood 92 mg/dL (60-115)
[2024-11-06 07:42] LABS: Hematocrit 22.2 % (42.0-52.0); Mean Corpuscular HGB Conc 29.3 g/dl (31.0-36.0); Mean Corpuscular Hemoglobin 26.1 pg (27.0-33.0); Mean Corpuscular Volume 89.2 fL (80.0-98.0); Mean Platelet Volume 10.5 fL (9.4-12.4); Platelet Count 295 X10*3/uL (160-400); Red Blood Count 2.49 X10*6/uL (4.60-5.80); Red Cell Distribution Width 15.8 % (11.0-16.0); White Blood Count 14.1 X10*3/uL (4.8-10.8)
[2024-11-06 07:57] LABS: Alanine Aminotransferase < 6 U/L (0-40); Albumin Level 2.1 g/dL (3.5-5.0); Alkaline Phosphatase 112 U/L (39-117); Anion Gap 10 (12-20); Aspartate Amino Transferase 20 U/L (5-37); Bilirubin Total 0.2 mg/dL (0.0-1.0); Blood Urea Nitrogen 22 mg/dL (9-16); Calcium 7.5 mg/dL (8.4-10.2); Carbon Dioxide 26 mmol/L (22-29); Chloride 100 mmol/L (96-108); Creatinine Clr Calc Pharmacy 23.9; Estimated Glomerular Filt Rate 17; Glucose Random 98 mg/dL (60-115); Potassium 3.4 mmol/L (3.3-5.1); Sodium 133 mmol/L (135-145); Total Protein 6.4 g/dL (6.5-8.0)
[2024-11-06 08:00] LABS: Hemoglobin 6.5 g/dl (14.0-18.0)
[2024-11-06] MEDS: Metoprolol Succinate ER 50 MG TAB.ER.24H PO (08:39)
[2024-11-06] MEDS: Calcium Acetate 667 MG CAPSULE 1334 MG PO ×3 (08:39→17:08)
[2024-11-06] MEDS: 0.9 % Sodium Chloride Flush 3 ML SYRINGE IVFLUSH ×3 (08:39→15:28)
[2024-11-06] MEDS: Midodrine HCl 5 MG TABLET PO ×2 (08:39→17:08)
[2024-11-06] MEDS: calcitrioL 0.25 MCG CAPSULE 0.5 MCG PO (08:39)
[2024-11-06] MEDS: Amiodarone HCL 200 MG TABLET PO (08:39)
[2024-11-06] MEDS: Apixaban 5 MG TABLET PO ×2 (08:39→21:34)
[2024-11-06] MEDS: Insulin Glargine,Hum.rec.anlog 100 UNIT/ML 10 ML VIAL 10 UNIT SUBCUT (08:39)
[2024-11-06] MEDS: Multivitamin TABLET 1 TAB PO (08:39)
[2024-11-06] MEDS: Buprenorphine/Naloxone 8/2 mg FILM 1 FILM SUBLINGUAL ×3 (08:39→21:34)
--- NOTE | 2024-11-06 09:05 | P.CONGS_ITS ---
History of Present Illness Consult details Consult date: 11/06/24 Requesting physician: Harley Cooper Narrative: 44-year-old male patient presenting to the emergency department with lethargy and hypoxia noted prior to being transported to dialysis. His past medical history is significant for diabetes mellitus type 2, end-stage renal disease on hemodialysis (MWF), hypertension, hyperlipidemia, peripheral vascular disease s/p right BKA, and a recent hospitalization for MRSA bacteremia with pulmonic valve vegetations. He was found to have an area of ulceration and cellulitis involving the right groin extending into the right upper inner thigh and buttock. Surgical consultation was requested for possible debridement. A CT of the pelvis extending to the upper inner thigh was performed. This does reveal area of cellulitic changes especially in the right upper inner thigh with an open wound. No underlying abscess is appreciated. Review of Systems 2 Review of Systems: Yes Unobtainable due to mental condition PMFSH Past Medical History Medical History Opioid use disorder, severe, dependence Bacteremia Volume overload Paroxysmal atrial flutter Cardiomyopathy Pericardial effusion Atrial flutter Need for acute hemodialysis Leukocytosis Anemia Anemia Transfusion history Atrial flutter, paroxysmal COPD (chronic obstructive pulmonary disease) Constipation Callus of foot Seizure Polysubstance abuse CKD (chronic kidney disease) stage 3, GFR 30-59 ml/min Foot osteomyelitis, left Amputation of toe of right foot Diabetic ulcer of right foot Hyperglycemia due to type 2 diabetes mellitus Renal failure Sleep apnea Diabetes HTN (hypertension) Surgical History Surgical History Hx of right BKA History of surgical procedure (~04/24/23) Social History Social History Household Members: Family Household Members Other:: lives with mother Housing: House Unable to assess alcohol history related to: Unable to respond Alcohol intake: former Comment: bilateral wrist restraints/propofol drip for airway safety Patient Tobacco Use Status: Former Tobacco user Tobacco use type: Cigarette Cigarette Packs Per Day: 0.5 Cigarettes Per Day: 10.0 Years Smoked: 33 e-Cigarette/Vaping Use: Currently Using Second Hand Smoke Exposure: Yes Substance Use Type: Crack/Cocaine, Heroin, Marijuana and Opiates service: No Meds Allergies Allergy/AdvReac Type Severity Reaction Status Date / Time No Known Allergies Allergy Verified 11/05/24 04:46 [No Known Allergies*] Active Medications: Current Medications Acetaminophen (Acetaminophen 325 Mg Tablet) 650 mg PO Q6H PRN PRN Reason: Pain, Mild 1-3,fever,headache Al Hydroxide/Mg Hydroxide (Magnesium Hydrox/Alum Hydrox 30 Ml Oral.Susp) 30 ml PO Q4H PRN PRN Reason: Heartburn Amiodarone HCl (Amiodarone Hcl 200 Mg Tablet) 200 mg PO DAILY [facility] Last Admin: 11/06/24 08:39 Dose: 200 mg Apixaban (Apixaban 5 Mg Tablet) 5 mg PO BID [facility] Last Admin: 11/06/24 08:39 Dose: 5 mg Atorvastatin Calcium (Atorvastatin Calcium 40 Mg Tablet) 40 mg PO BEDTIME [facility] Last Admin: 11/05/24 22:20 Dose: 40 mg Buprenorphine/Naloxone (Buprenorphine/Naloxone 8/2 Mg Film) 1 film SUBLINGUAL TID [facility] Last Admin: 11/06/24 08:39 Dose: 1 film Calcitriol (Calcitriol 0.25 Mcg Capsule) 0.5 mcg PO DAILY [facility] Last Admin: 11/06/24 08:39 Dose: 0.5 mcg Calcium Acetate (Calcium Acetate 667 Mg Capsule) 1,334 mg PO TIDWM [facility] Last Admin: 11/06/24 08:39 Dose: 1,334 mg Calcium Carbonate (Calcium Carbonate 750 Mg Tab.Chew) 750 mg PO Q4H PRN PRN Reason: Heartburn Glucose (Glucose Gel 15 Gm Gel..Gram.) 15 gm PO Q15M PRN; Protocol PRN Reason: per Hypoglycemia Standing Ord. Norepinephrine Bitartrate (Levophed) 8 mg in 250 mls @ 0 mls/hr IVCONT .Q0M [facility]; Protocol Last Titration: 11/05/24 11:56 Dose: 0 mcg/kg/min, 0 mls/hr Dextrose (D10) 250 mls @ 750 mls/hr IV Q15M PRN; Protocol PRN Reason: per Hypoglycemia Standing Ord. Piperacillin Sod/Tazobactam (Sod 2.25 gm/ Sodium Chloride) 50 mls @ 100 mls/hr IV Q8H [facility] Last Infusion: 11/06/24 06:05 Dose: Infused Vancomycin HCl 500 mg/ Sodium (Chloride) 110 mls @ 110 mls/hr IV [id number]@[id number] [facility] Insulin Glargine (Insulin Glargine,Hum.Rec.Anlog 100 Unit/Ml 10 Ml Vial) 10 unit SUBCUT DAILY [facility] Last Admin: 11/06/24 08:39 Dose: 10 unit Insulin Human Lispro (Insulin Lispro 100 Unit/Ml 3 Ml Vial) 0 unit SUBCUT QIDACHS [facility]; Protocol Last Admin: 11/06/24 08:40 Dose: Not Given Magnesium Hydroxide (Milk Of Magnesia 30 Ml Oral.Susp) 30 ml PO DAILY PRN PRN Reason: Constipation Melatonin (Melatonin 3 Mg Tablet) 6 mg PO BEDTIME PRN PRN Reason: Insomnia Metoprolol Succinate (Metoprolol Succinate Er 50 Mg Tab.Er.24h) 50 mg PO DAILY [facility]; Protocol Last Admin: 11/06/24 08:39 Dose: 50 mg Midodrine (Midodrine Hcl 5 Mg Tablet) 5 mg PO BIDWM [facility] Last Admin: 11/06/24 08:39 Dose: 5 mg Multivitamins/Vitamin C (Multivitamin Tablet) 1 tab PO DAILY [facility] Last Admin: 11/06/24 08:39 Dose: 1 tab Omeprazole (Omeprazole 20 Mg Capsule.Dr) 20 mg PO DAILY@0630 [facility] Last Admin: 11/06/24 05:35 Dose: 20 mg Ondansetron HCl (Ondansetron Hcl 4 Mg/2 Ml Vial) 4 mg IVPUSH Q8H PRN PRN Reason: Nausea and Vomiting Pharmacy Consult (Consult Rx Vancomycin Dosing) 1 each MISCELLANE DAILY PRN PRN Reason: Consult order Polyethylene Glycol (Polyethylene Glycol 3350 17 Gm Powd.Pack) 17 gm PO DAILY PRN PRN Reason: Constipation Sodium Chloride (0.9 % Sodium Chloride Flush 3 Ml Syringe) 3 ml IVFLUSH QSHIFT [facility] Last Admin: 11/06/24 08:39 Dose: 3 ml Torsemide (Torsemide 20 Mg Tablet) 80 mg PO BIDWM [facility]; Protocol Last Admin: 11/06/24 08:44 Dose: Not Given Home Medications ?Medication ?Instructions ?Recorded ?Confirmed ?Last Taken ?Type insulin glargine 100 unit/mL (3 10 unit subcut DAILY 09/28/24 11/05/24 11/04/24 History mL) subcutaneous pen insulin lispro 100 unit/mL See Protocol subcut TIDAC 09/28/24 11/05/24 11/04/24 History subcutaneous pen (Humalog KwikPen (U-100) Insulin) melatonin 5 mg tablet 5 mg PO BEDTIME PRN insomnia 09/28/24 11/05/24 11/04/24 History Physical Exam 2 Vital Signs: Vital Signs: Last Vital Signs Temp 97.1 F 11/06/24 08:00 Pulse 71 11/06/24 08:00 Resp 19 11/06/24 08:00 BP 101/50 L 11/06/24 08:00 Pulse Ox 100 11/06/24 08:00 O2 Del Method Nasal Cannula 11/06/24 08:00 O2 Flow Rate 2 11/06/24 08:00 Oxygen Flow Rate 4 11/05/24 04:40 BMI result Body Mass Index 27.1 Const: General: lethargic Nutritional Appearance: thin O rientation/consciousness: lethargic HEENT: Head: Yes normocephalic and Yes atraumatic Resp: Effort & Inspection: normal respiratory effort GI: Inspection: Yes normal to inspection : Other: External urine containment device noted. Extensive moisture accumulation noted between skin folds of the right leg with surrounding erythema and ulceration. Site is exquisitely tender to palpation. There is palpable lymphadenopathy below this but exam is limited due to patient's pain. No definite abscess is palpable. Male genitals images: 1. Site of skin fold ulceration extending into the right buttock. Skin: Other: As noted in above General skin exam: erythema, Excoriation and no fluctuance Results Labs 11/06/24 07:11 11/06/24 07:11 Labs: Abnormal lab results 11/05/24 11/05/24 11/06/24 Range/Units 20:51 21:11 07:11 WBC 14.1 H (4.8-10.8) X10*3/uL RBC 2.49 L (4.60-5.80) X10*6/uL Hgb 6.5 L* (14.0-18.0) g/dl Hct 22.2 L (42.0-52.0) % MCH 26.1 L (27.0-33.0) pg MCHC 29.3 L (31.0-36.0) g/dl Sodium 133 L (135-145) mmol/L Anion Gap 10 L (12-20) BUN 22 H (9-16) mg/dL Creatinine 3.85 H (0.5-1.4) mg/dL POC Glucose 126 H 116 H (60-115) mg/dL Calcium 7.5 L (8.4-10.2) mg/dL Total Protein 6.4 L (6.5-8.0) g/dL Albumin 2.1 L (3.5-5.0) g/dL Short CBC 11/06/24 Range/Units 07:11 WBC 14.1 H (4.8-10.8) X10*3/uL Hgb 6.5 L* (14.0-18.0) g/dl Hct 22.2 L (42.0-52.0) % Plt Count 295 (160-400) X10*3/uL BMP 11/06/24 07:11 Sodium 133 L Potassium 3.4 Chloride 100 Carbon Dioxide 26 BUN 22 H Creatinine 3.85 H Calcium 7.5 L Liver Function 11/06/24 Range/Units 07:11 Total Bilirubin 0.2 (0.0-1.0) mg/dL AST 20 (5-37) U/L ALT < 6 (0-40) U/L Alkaline Phosphatase 112 (39-117) U/L Albumin 2.1 L (3.5-5.0) g/dL All other labs normal. Assessment and Plan (1) Cellulitis: Qualifiers: Site of cellulitis: trunk Site of cellulitis of trunk: abdominal wall Qualified Code(s): L03.311 - Cellulitis of abdominal wall Status: Acute Plan 44-year-old male with history of diabetes mellitus, end-stage renal disease on hemodialysis, previous amputations now presenting with a cellulitis and ulceration of the right groin. This appears to be more moisture related along the skin folds and from urine leakage onto the skin. Review of the CT pelvis does not identify any underlying abscess. I have applied Interdry fabric to the skin fold to reduce moisture, control odor and reduce bacterial colonization of the wound. I will monitor his wound during his hospitalization. Debridement is required, this would need to be done in the OR. Discussed with Dr. Cooper. Procedures Date of Service Date of Service: 11/06/24
--- NOTE | 2024-11-06 09:27 | MHC.CM.PN ---
[place] ATTEMPTED TO MEET WITH PT WHO WAS SLEEPING AND ONLY MUMBLED IN RESPONSE TO HIS NAME [place] TO REVISIT
--- NOTE | 2024-11-06 10:47 | HO.PM.IMPN ---
Subjective Subjective Date of Service: 11/06/24 Interval History: f/u on sepstic shock, hypotension, wound infection Review of Systems no fever, no hypotension Physical Exam Vital Signs: Vital Signs: Last Vital Signs Temp 97.1 F 11/06/24 08:00 Pulse 71 11/06/24 08:00 Resp 19 11/06/24 08:00 BP 101/50 L 11/06/24 08:00 Pulse Ox 100 11/06/24 08:00 O2 Del Method Nasal Cannula 11/06/24 08:00 O2 Flow Rate 2 11/06/24 08:00 Oxygen Flow Rate 4 11/05/24 04:40 BMI result Body Mass Index 27.1 Const: Other: General: AO X 3, no acute distress Resp: CTA bilateral CVS: S1,S2,RRR GI: +BS, NT, no distention Skin: see h and p pictures Neuro: motor grossly intact Psych: appropriate affect Objective Data Active Medications Acetaminophen (Acetaminophen 325 Mg Tablet) 650 mg PO Q6H PRN PRN Reason: Pain, Mild 1-3,fever,headache Al Hydroxide/Mg Hydroxide (Magnesium Hydrox/Alum Hydrox 30 Ml Oral.Susp) 30 ml PO Q4H PRN PRN Reason: Heartburn Amiodarone HCl (Amiodarone Hcl 200 Mg Tablet) 200 mg PO DAILY [facility] Last Admin: 11/06/24 08:39 Dose: 200 mg Documented By: DION Apixaban (Apixaban 5 Mg Tablet) 5 mg PO BID [facility] Last Admin: 11/06/24 08:39 Dose: 5 mg Documented By: DION Atorvastatin Calcium (Atorvastatin Calcium 40 Mg Tablet) 40 mg PO BEDTIME [facility] Last Admin: 11/05/24 22:20 Dose: 40 mg Documented By: PRETTY Buprenorphine/Naloxone (Buprenorphine/Naloxone 8/2 Mg Film) 1 film SUBLINGUAL TID [facility] Last Admin: 11/06/24 08:39 Dose: 1 film Documented By: DION Calcitriol (Calcitriol 0.25 Mcg Capsule) 0.5 mcg PO DAILY [facility] Last Admin: 11/06/24 08:39 Dose: 0.5 mcg Documented By: DION Calcium Acetate (Calcium Acetate 667 Mg Capsule) 1,334 mg PO TIDWM [facility] Last Admin: 11/06/24 08:39 Dose: 1,334 mg Documented By: DION Calcium Carbonate (Calcium Carbonate 750 Mg Tab.Chew) 750 mg PO Q4H PRN PRN Reason: Heartburn Glucose (Glucose Gel 15 Gm Gel..Gram.) 15 gm PO Q15M PRN; Protocol PRN Reason: per Hypoglycemia Standing Ord. Norepinephrine Bitartrate (Levophed) 8 mg in 250 mls @ 0 mls/hr IVCONT .Q0M [facility]; Protocol Last Titration: 11/05/24 11:56 Dose: 0 mcg/kg/min, 0 mls/hr Documented By: WAYNE Dextrose (D10) 250 mls @ 750 mls/hr IV Q15M PRN; Protocol PRN Reason: per Hypoglycemia Standing Ord. Piperacillin Sod/Tazobactam (Sod 2.25 gm/ Sodium Chloride) 50 mls @ 100 mls/hr IV Q8H [facility] Last Infusion: 11/06/24 06:05 Dose: Infused Documented By: PRETTY Vancomycin HCl 500 mg/ Sodium (Chloride) 110 mls @ 110 mls/hr IV [id number]@1800 [facility] Insulin Glargine (Insulin Glargine,Hum.Rec.Anlog 100 Unit/Ml 10 Ml Vial) 10 unit SUBCUT DAILY [facility] Last Admin: 11/06/24 08:39 Dose: 10 unit Documented By: DION Insulin Human Lispro (Insulin Lispro 100 Unit/Ml 3 Ml Vial) 0 unit SUBCUT QIDACHS [facility]; Protocol Last Admin: 11/06/24 08:40 Dose: Not Given Documented By: DION Non-Admin Reason: No Insulin Coverage Magnesium Hydroxide (Milk Of Magnesia 30 Ml Oral.Susp) 30 ml PO DAILY PRN PRN Reason: Constipation Melatonin (Melatonin 3 Mg Tablet) 6 mg PO BEDTIME PRN PRN Reason: Insomnia Metoprolol Succinate (Metoprolol Succinate Er 50 Mg Tab.Er.24h) 50 mg PO DAILY [facility]; Protocol Last Admin: 11/06/24 08:39 Dose: 50 mg Documented By: DION Midodrine (Midodrine Hcl 5 Mg Tablet) 5 mg PO BIDWM [facility] Last Admin: 11/06/24 08:39 Dose: 5 mg Documented By: DION Multivitamins/Vitamin C (Multivitamin Tablet) 1 tab PO DAILY [facility] Last Admin: 11/06/24 08:39 Dose: 1 tab Documented By: DION Omeprazole (Omeprazole 20 Mg Capsule.) 20 mg PO DAILY@0630 [facility] Last Admin: 11/06/24 05:35 Dose: 20 mg Documented By: PRETTY Ondansetron HCl (Ondansetron Hcl 4 Mg/2 Ml Vial) 4 mg IVPUSH Q8H PRN PRN Reason: Nausea and Vomiting Pharmacy Consult (Consult Rx Vancomycin Dosing) 1 each MISCELLANE DAILY PRN PRN Reason: Consult order Polyethylene Glycol (Polyethylene Glycol 3350 17 Gm Powd.Pack) 17 gm PO DAILY PRN PRN Reason: Constipation Sodium Chloride (0.9 % Sodium Chloride Flush 3 Ml Syringe) 3 ml IVFLUSH QSHIFT [facility] Last Admin: 11/06/24 08:39 Dose: 3 ml Documented By: DION Torsemide (Torsemide 20 Mg Tablet) 80 mg PO BIDWM [facility]; Protocol Last Admin: 11/06/24 08:44 Dose: Not Given Documented By: DION Non-Admin Reason: Physician Held Med Labs 11/06/24 07:11 11/06/24 07:11 Labs: Laboratory Results - last 24 hr 11/05/24 11/05/24 11/05/24 20:15 20:51 21:11 MCV MCH MCHC RDW Plt Count MPV Absolute Nucleated RBC Nucleated RBC % (auto) Anion Gap Estim Creat Clear Calc Estimated GFR POC Glucose 126 H 116 H Random Glucose Lactic Acid Calcium Total Bilirubin AST ALT Alkaline Phosphatase Total Protein Albumin Random Vancomycin 16.1 11/05/24 11/06/24 11/06/24 21:30 07:11 07:25 MCV 89.2 MCH 26.1 L MCHC 29.3 L RDW 15.8 Plt Count 295 MPV 10.5 Absolute Nucleated RBC 0.000 Nucleated RBC % (auto) 0.0 Anion Gap 10 L Estim Creat Clear Calc 23.9 Estimated GFR 17 POC Glucose 92 Random Glucose 98 Lactic Acid 0.7 Calcium 7.5 L Total Bilirubin 0.2 AST 20 ALT < 6 Alkaline Phosphatase 112 Total Protein 6.4 L Albumin 2.1 L Random Vancomycin Microbiology Microbiology Results: Microbiology 11/05/24 11:35 Gram Stain - Final Groin Routine Culture - Preliminary Culture in progress. 11/05/24 04:49 Blood Culture - Preliminary Blood - Venous No growth after 24 hours. 11/05/24 04:26 Blood Culture - Preliminary Blood - Venous No growth after 24 hours. 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 -Continue Vancomyin and Zosyn, follow culture, may need ID evaluation ESRD--HD MWF, Paroxysmal atrial flutter. Continue amiodarone, and Eliquis HypOtension--required vasopressors, continue Midodrine and hold diuretic, ok to continue metoprolol Elevated troponin, chronic. No chest pain. Likely secondary to end-stage renal disease. History of drug abuse. Continue Suboxone. Addiction med consult, check utox Pressure ulcer, nursing wound protocol -surgery consult for possible debridment Type 2 diabetes mellitus. -BG checks before meals at bedtime. -Insulin sliding scale and Lantus. Diabetic diet Hyperlipidemia. Continue atorvastatin. Right BKA. no issues DVT prophylaxis: Eliquis Code status: Full Need for inpt: Septic shock Quality Stroke Does the patient have a stroke diagnosis?: No VTE Prior VTE?: No VTE Risk Level:: Medical - moderate - high VTE Device Contraindication: Treatment Not Indicated VTE Drug Contraindication: N/A - Med Ordered
[2024-11-06 11:38] LABS: Glucose, Whole Blood 115 mg/dL (60-115)
[2024-11-06] MEDS: Acetaminophen 325 MG TABLET 650 MG PO (12:21)
[2024-11-06 16:44] LABS: Glucose, Whole Blood 226 mg/dL (60-115)
[2024-11-06] MEDS: Insulin Lispro 100 UNIT/ML 3 ML VIAL SUBCUT (17:07)
[2024-11-06] MEDS: oxyCODONE HCl Immed Release 5 MG TABLET PO ×2 (17:08→21:47)
[2024-11-06 20:56] LABS: Glucose, Whole Blood 120 mg/dL (60-115)
[2024-11-06] MEDS: Atorvastatin Calcium 40 MG TABLET PO (21:34)
[2024-11-07 03:31] VITALS: BP 110/61; PULSE 100; RESP 18; TEMP 36.4; O2SAT 94
[2024-11-07] MEDS: 0.9 % Sodium Chloride Flush 3 ML SYRINGE IVFLUSH ×4 (04:22→20:55)
[2024-11-07] MEDS: Piperacillin Sodium/Tazobactam 2.25 GM in 0.9 % Sodium Chloride 50 ML IV ×3 (04:23→20:54)
[2024-11-07] MEDS: Omeprazole 20 MG CAPSULE.DR PO (06:34)
[2024-11-07 07:15] VITALS: BP 94/51; PULSE 82; RESP 20; TEMP 37.4; O2SAT 97
--- NOTE | 2024-11-07 07:29 | PC.NURSE ---
Patient refused repo, approached numerous times but was able to turn patient twice throughout the shift. Patient also did not agree to dressing change on his coccyx stating he was in too much pain. Pain medication offered and administered.
[2024-11-07] MEDS: calcitrioL 0.25 MCG CAPSULE 0.5 MCG PO (08:13)
[2024-11-07] MEDS: Apixaban 5 MG TABLET PO ×2 (08:13→20:54)
[2024-11-07] MEDS: Midodrine HCl 5 MG TABLET PO ×2 (08:13→16:47)
[2024-11-07] MEDS: Metoprolol Succinate ER 50 MG TAB.ER.24H PO (08:14)
[2024-11-07] MEDS: Multivitamin TABLET 1 TAB PO (08:14)
[2024-11-07] MEDS: oxyCODONE HCl Immed Release 5 MG TABLET PO ×4 (08:14→21:31)
[2024-11-07] MEDS: Calcium Acetate 667 MG CAPSULE 1334 MG PO ×3 (08:14→16:46)
[2024-11-07] MEDS: Amiodarone HCL 200 MG TABLET PO (08:27)
[2024-11-07] MEDS: Buprenorphine/Naloxone 8/2 mg FILM 1 FILM SUBLINGUAL ×3 (09:22→20:55)
--- NOTE | 2024-11-07 10:40 | PM.PNGS ---
Subjective Subjective Date of Service: 11/07/24 Interval history: Continued complaints of skin pain in the right groin Physical Exam Vital Signs: Vital Signs: Last Vital Signs Temp 99.4 F 11/07/24 07:15 Pulse 82 11/07/24 07:15 Resp 20 11/07/24 07:15 BP 94/51 L 11/07/24 07:15 Pulse Ox 97 11/07/24 07:15 O2 Del Method Nasal Cannula 11/07/24 07:15 O2 Flow Rate 2 11/07/24 07:15 Oxygen Flow Rate 4 11/05/24 04:40 BMI result Body Mass Index 27.1 Const: General: no acute distress Nutritional Appearance: well nourished Orientation/consciousness: patient oriented x3 Resp: Effort & Inspection: normal respiratory effort Skin: Other: Right groin wound with InterDry in place. Overall erythema appears improved. 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 No evidence of a deeper abscess. Neuro: General: patient oriented x3 Objective Data Active Medications Acetaminophen (Acetaminophen 325 Mg Tablet) 650 mg PO Q6H PRN PRN Reason: Pain, Mild 1-3,fever,headache Last Admin: 11/06/24 12:21 Dose: 650 mg Documented By: DION Al Hydroxide/Mg Hydroxide (Magnesium Hydrox/Alum Hydrox 30 Ml Oral.Susp) 30 ml PO Q4H PRN PRN Reason: Heartburn Amiodarone HCl (Amiodarone Hcl 200 Mg Tablet) 200 mg PO DAILY [facility] Last Admin: 11/07/24 08:27 Dose: 200 mg Documented By: DION Apixaban (Apixaban 5 Mg Tablet) 5 mg PO BID [facility] Last Admin: 11/07/24 08:13 Dose: 5 mg Documented By: DION Atorvastatin Calcium (Atorvastatin Calcium 40 Mg Tablet) 40 mg PO BEDTIME [facility] Last Admin: 11/06/24 21:34 Dose: 40 mg Documented By: DELONTE Buprenorphine/Naloxone (Buprenorphine/Naloxone 8/2 Mg Film) 1 film SUBLINGUAL TID [facility] Last Admin: 11/07/24 09:22 Dose: 1 film Documented By: DION Calcitriol (Calcitriol 0.25 Mcg Capsule) 0.5 mcg PO DAILY [facility] Last Admin: 11/07/24 08:13 Dose: 0.5 mcg Documented By: DION Calcium Acetate (Calcium Acetate 667 Mg Capsule) 1,334 mg PO TIDWM [facility] Last Admin: 11/07/24 08:14 Dose: 1,334 mg Documented By: DION Calcium Carbonate (Calcium Carbonate 750 Mg Tab.Chew) 750 mg PO Q4H PRN PRN Reason: Heartburn Glucose (Glucose Gel 15 Gm Gel..Gram.) 15 gm PO Q15M PRN; Protocol PRN Reason: per Hypoglycemia Standing Ord. Norepinephrine Bitartrate (Levophed) 8 mg in 250 mls @ 0 mls/hr IVCONT .Q0M [facility]; Protocol Last Titration: 11/05/24 11:56 Dose: 0 mcg/kg/min, 0 mls/hr Documented By: WAYNE Dextrose (D10) 250 mls @ 750 mls/hr IV Q15M PRN; Protocol PRN Reason: per Hypoglycemia Standing Ord. Piperacillin Sod/Tazobactam (Sod 2.25 gm/ Sodium Chloride) 50 mls @ 100 mls/hr IV Q8H [facility] Last Infusion: 11/07/24 05:06 Dose: Infused Documented By: DELONTE Vancomycin HCl 500 mg/ Sodium (Chloride) 110 mls @ 110 mls/hr IV [id number]@1800 [facility] Insulin Glargine (Insulin Glargine,Hum.Rec.Anlog 100 Unit/Ml 10 Ml Vial) 10 unit SUBCUT DAILY [facility] Last Admin: 11/07/24 09:23 Dose: Not Given Documented By: DION Non-Admin Reason: Physician Held Med Comments: Per MD Cooper Insulin Human Lispro (Insulin Lispro 100 Unit/Ml 3 Ml Vial) 0 unit SUBCUT QIDACHS [facility]; Protocol Last Admin: 11/07/24 08:16 Dose: Not Given Documented By: DION Non-Admin Reason: No Insulin Coverage Comments: POC 64 Magnesium Hydroxide (Milk Of Magnesia 30 Ml Oral.Susp) 30 ml PO DAILY PRN PRN Reason: Constipation Melatonin (Melatonin 3 Mg Tablet) 6 mg PO BEDTIME PRN PRN Reason: Insomnia Metoprolol Succinate (Metoprolol Succinate Er 50 Mg Tab.Er.24h) 50 mg PO DAILY [facility]; Protocol Last Admin: 11/07/24 08:14 Dose: 50 mg Documented By: DION Midodrine (Midodrine Hcl 5 Mg Tablet) 5 mg PO BIDWM [facility] Last Admin: 11/07/24 08:13 Dose: 5 mg Documented By: DION Multivitamins/Vitamin C (Multivitamin Tablet) 1 tab PO DAILY [facility] Last Admin: 11/07/24 08:14 Dose: 1 tab Documented By: DION Omeprazole (Omeprazole 20 Mg Capsule.Dr) 20 mg PO DAILY@0630 [facility] Last Admin: 11/07/24 06:34 Dose: 20 mg Documented By: DELONTE Ondansetron HCl (Ondansetron Hcl 4 Mg/2 Ml Vial) 4 mg IVPUSH Q8H PRN PRN Reason: Nausea and Vomiting Oxycodone HCl (Oxycodone Hcl Immed Release 5 Mg Tablet) 5 mg PO Q4H PRN PRN Reason: Pain, Severe (Pain Scale 7-10) Last Admin: 11/07/24 08:14 Dose: 5 mg Documented By: DION Pharmacy Consult (Consult Rx Vancomycin Dosing) 1 each MISCELLANE DAILY PRN PRN Reason: Consult order Polyethylene Glycol (Polyethylene Glycol 3350 17 Gm Powd.Pack) 17 gm PO DAILY PRN PRN Reason: Constipation Sodium Chloride (0.9 % Sodium Chloride Flush 3 Ml Syringe) [facility] Last Admin: 11/07/24 08:16 Dose: 3 ml Documented By: DION Torsemide (Torsemide 20 Mg Tablet) 80 mg PO BIDWM [facility]; Protocol Last Admin: 11/07/24 08:16 Dose: Not Given Documented By: DION Non-Admin Reason: Physician Held Med Comments: per [facility] Labs 11/06/24 07:11 11/06/24 07:11 Labs: Laboratory Results - last 24 hr 11/06/24 11/06/24 11/06/24 11:13 11:26 16:34 POC Glucose 115 226 H Blood Type O Positive Antibody Screen NEGATIVE Crossmatch See Detail 11/06/24 20:23 POC Glucose 120 H Blood Type Antibody Screen Crossmatch Microbiology Microbiology Results: Microbiology 11/05/24 11:35 Gram Stain - Final Groin Routine Culture - Preliminary Gram negative [place] 11/05/24 04:49 Blood Culture - Preliminary Blood - Venous No growth after 48 hours. 11/05/24 04:26 Blood Culture - Preliminary Blood - Venous No growth after 48 hours. 11/05/24 21:38 Blood Culture - Preliminary Blood - Venous No growth after 24 hours. 11/05/24 21:30 Blood Culture - Preliminary Blood - Venous No growth after 24 hours. Procedures Date of Service Date of Service: 11/07/24 Progress Note: A&P Assessment and plan (1) Cellulitis: Status: Acute Plan 44-year-old male patient with a right groin/upper inner thigh skin excoriation due to moisture accumulation. Recommend continuing InterDry fabric placement in both groin creases every 2-3 days. Suggest wound care nurse evaluation in a.m.. We will continue to monitor. Time Spent With Patient Time: Total time managing care of this patient today ____ minutes. Quality Stroke Does the patient have a stroke diagnosis?: No VTE Prior VTE?: No VTE Risk Level:: Medical - moderate - high VTE Device Contraindication: Treatment Not Indicated VTE Drug Contraindication: N/A - Med Ordered
--- NOTE | 2024-11-07 11:02 | HO.PM.IMPN ---
Subjective Subjective Date of Service: 11/07/24 Interval History: f/u on sepstic shock, hypotension, wound infection no new issues, BP marginal hold diuretics Physical Exam Vital Signs: Vital Signs: Last Vital Signs Temp 99.4 F 11/07/24 07:15 Pulse 82 11/07/24 07:15 Resp 20 11/07/24 07:15 BP 94/51 L 11/07/24 07:15 Pulse Ox 97 11/07/24 07:15 O2 Del Method Nasal Cannula 11/07/24 07:15 O2 Flow Rate 2 11/07/24 07:15 Oxygen Flow Rate 4 11/05/24 04:40 BMI result Body Mass Index 27.1 Const: Other: General: AO X 3, no acute distress Resp: CTA bilateral CVS: S1,S2,RRR GI: +BS, NT, no distention Skin: see h and p pictures Neuro: motor grossly intact Psych: appropriate affect Objective Data Active Medications Acetaminophen (Acetaminophen 325 Mg Tablet) 650 mg PO Q6H PRN PRN Reason: Pain, Mild 1-3,fever,headache Last Admin: 11/06/24 12:21 Dose: 650 mg Documented By: DION Al Hydroxide/Mg Hydroxide (Magnesium Hydrox/Alum Hydrox 30 Ml Oral.Susp) 30 ml PO Q4H PRN PRN Reason: Heartburn Amiodarone HCl (Amiodarone Hcl 200 Mg Tablet) 200 mg PO DAILY [facility] Last Admin: 11/07/24 08:27 Dose: 200 mg Documented By: DION Apixaban (Apixaban 5 Mg Tablet) 5 mg PO BID [facility] Last Admin: 11/07/24 08:13 Dose: 5 mg Documented By: DION Atorvastatin Calcium (Atorvastatin Calcium 40 Mg Tablet) 40 mg PO BEDTIME [facility] Last Admin: 11/06/24 21:34 Dose: 40 mg Documented By: DELONTE Buprenorphine/Naloxone (Buprenorphine/Naloxone 8/2 Mg Film) 1 film SUBLINGUAL TID [facility] Last Admin: 11/07/24 09:22 Dose: 1 film Documented By: DION Calcitriol (Calcitriol 0.25 Mcg Capsule) 0.5 mcg PO DAILY [facility] Last Admin: 11/07/24 08:13 Dose: 0.5 mcg Documented By: DION Calcium Acetate (Calcium Acetate 667 Mg Capsule) 1,334 mg PO TIDWM [facility] Last Admin: 11/07/24 08:14 Dose: 1,334 mg Documented By: DION Calcium Carbonate (Calcium Carbonate 750 Mg Tab.Chew) 750 mg PO Q4H PRN PRN Reason: Heartburn Glucose (Glucose Gel 15 Gm Gel..Gram.) 15 gm PO Q15M PRN; Protocol PRN Reason: per Hypoglycemia Standing Ord. Norepinephrine Bitartrate (Levophed) 8 mg in 250 mls @ 0 mls/hr IVCONT .Q0M [facility]; Protocol Last Titration: 11/05/24 11:56 Dose: 0 mcg/kg/min, 0 mls/hr Documented By: WAYNE Dextrose (D10) 250 mls @ 750 mls/hr IV Q15M PRN; Protocol PRN Reason: per Hypoglycemia Standing Ord. Piperacillin Sod/Tazobactam (Sod 2.25 gm/ Sodium Chloride) 50 mls @ 100 mls/hr IV Q8H [facility] Last Infusion: 11/07/24 05:06 Dose: Infused Documented By: DELONTE Vancomycin HCl 500 mg/ Sodium (Chloride) 110 mls @ 110 mls/hr IV [id number] [facility] Insulin Glargine (Insulin Glargine,Hum.Rec.Anlog 100 Unit/Ml 10 Ml Vial) 10 unit SUBCUT DAILY [facility] Last Admin: 11/07/24 09:23 Dose: Not Given Documented By: DION Non-Admin Reason: Physician Held Med Comments: Per MD Cooper Insulin Human Lispro (Insulin Lispro 100 Unit/Ml 3 Ml Vial) 0 unit SUBCUT QIDACHS [facility]; Protocol Last Admin: 11/07/24 08:16 Dose: Not Given Documented By: DION Non-Admin Reason: No Insulin Coverage Comments: POC 64 Magnesium Hydroxide (Milk Of Magnesia 30 Ml Oral.Susp) 30 ml PO DAILY PRN PRN Reason: Constipation Melatonin (Melatonin 3 Mg Tablet) 6 mg PO BEDTIME PRN PRN Reason: Insomnia Metoprolol Succinate (Metoprolol Succinate Er 50 Mg Tab.Er.24h) 50 mg PO DAILY [facility]; Protocol Last Admin: 11/07/24 08:14 Dose: 50 mg Documented By: DION Midodrine (Midodrine Hcl 5 Mg Tablet) 5 mg PO BIDWM [facility] Last Admin: 11/07/24 08:13 Dose: 5 mg Documented By: DION Multivitamins/Vitamin C (Multivitamin Tablet) 1 tab PO DAILY [facility] Last Admin: 11/07/24 08:14 Dose: 1 tab Documented By: DION Omeprazole (Omeprazole 20 Mg Capsule.Dr) 20 mg PO DAILY@0630 [facility] Last Admin: 11/07/24 06:34 Dose: 20 mg Documented By: DELONTE Ondansetron HCl (Ondansetron Hcl 4 Mg/2 Ml Vial) 4 mg IVPUSH Q8H PRN PRN Reason: Nausea and Vomiting Oxycodone HCl (Oxycodone Hcl Immed Release 5 Mg Tablet) 5 mg PO Q4H PRN PRN Reason: Pain, Severe (Pain Scale 7-10) Last Admin: 11/07/24 08:14 Dose: 5 mg Documented By: DION Pharmacy Consult (Consult Rx Vancomycin Dosing) 1 each MISCELLANE DAILY PRN PRN Reason: Consult order Polyethylene Glycol (Polyethylene Glycol 3350 17 Gm Powd.Pack) 17 gm PO DAILY PRN PRN Reason: Constipation Sodium Chloride (0.9 % Sodium Chloride Flush 3 Ml Syringe) [facility] Last Admin: 11/07/24 08:16 Dose: 3 ml Documented By: DION Torsemide (Torsemide 20 Mg Tablet) 80 mg PO BIDWM [facility]; Protocol Last Admin: 11/07/24 08:16 Dose: Not Given Documented By: DION Non-Admin Reason: Physician Held Med Comments: per [facility] Labs 11/06/24 07:11 11/06/24 07:11 Labs: Laboratory Results - last 24 hr 11/06/24 11/06/24 11/06/24 11:13 11:26 16:34 POC Glucose 115 226 H Blood Type O Positive Antibody Screen NEGATIVE Crossmatch See Detail 11/06/24 20:23 POC Glucose 120 H Blood Type Antibody Screen Crossmatch Microbiology Microbiology Results: Microbiology 11/05/24 11:35 Gram Stain - Final Groin Routine Culture - Preliminary Gram negative [place] 11/05/24 04:49 Blood Culture - Preliminary Blood - Venous No growth after 48 hours. 11/05/24 04:26 Blood Culture - Preliminary Blood - Venous No growth after 48 hours. 11/05/24 21:38 Blood Culture - Preliminary Blood - Venous No growth after 24 hours. 11/05/24 21:30 Blood Culture - Preliminary Blood - Venous No growth after 24 hours. 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 -Continue Vancomyin and Zosyn, follow culture, may need ID evaluation. Surgery and Wound RN consult for wound mangement ESRD--HD MWF (Nephrology following) Paroxysmal atrial flutter. Continue amiodarone, metoprolol and Eliquis HypOtension--required vasopressors, continue Midodrine and hold diuretic, ok to continue metoprolol Elevated troponin, chronic. No chest pain. Likely secondary to end-stage renal disease. History of drug abuse. Continue Suboxone. Addiction med consult, check utox Pressure ulcer, nursing wound protocol -surgery consult for possible debridment Type 2 diabetes mellitus, hypoglycemia this mornng -BG checks before meals at bedtime. -Insulin sliding scale and Lantus (hold this morning). Diabetic diet Hyperlipidemia. Continue atorvastatin. Right BKA. no issues DVT prophylaxis: Eliquis Code status: Full Need for inpt: Septic shock on Iv Abx Quality Stroke Does the patient have a stroke diagnosis?: No VTE Prior VTE?: No VTE Risk Level:: Medical - moderate - high VTE Device Contraindication: Treatment Not Indicated VTE Drug Contraindication: N/A - Med Ordered
[2024-11-07 11:22] LABS: Glucose, Whole Blood 93 mg/dL (60-115)
[2024-11-07 11:22] LABS: Glucose, Whole Blood 79 mg/dL (60-115)
[2024-11-07 11:22] LABS: Glucose, Whole Blood 64 mg/dL (60-115)
[2024-11-07 11:23] VITALS: BP 105/55; PULSE 77; RESP 16; TEMP 36.9; O2SAT 98
[2024-11-07 11:28] LABS: Glucose, Whole Blood 114 mg/dL (60-115)
[2024-11-07 16:00] VITALS: BP 114/56; PULSE 81; RESP 18; TEMP 36.8; O2SAT 97
[2024-11-07 16:37] LABS: Glucose, Whole Blood 168 mg/dL (60-115)
--- NOTE | 2024-11-07 16:43 | MHC.CM.PN ---
Addendum entered by Skye Patel 11/07/24 16:45: CORRECTION: [facility] WAS EXPECTED TO SEE PT FOLLOWING HIS DC IN OCTOBER PT STATES THEY NEVER CONTACTED HIM Original Note: CM MET WITH PT AND AT BEDSIDE PT STATES HE IS STILL LIVING WITH HIS MOTHER WHO ASSISTS WITH CARE HE SAYS HE WAS SUPPOSED TO HAVE VNA AFTER HIS LAST DC BUT THEY NEVER CAME DC NOTE FROM LAST ADMISSION DOES NOT INDICATE VNA SERVICES PT STATES HE HAS A WALKER, [employer] AND WHEEL CHAIR HE GOES [facility] PCP AT [facility] HCP ON FILE DCP: TO MOTHERS HOME WITH RESUMPTION OF HD BLS TRANSPORT
[2024-11-07] MEDS: Insulin Lispro 100 UNIT/ML 3 ML VIAL SUBCUT ×2 (16:47→21:31)
[2024-11-07 20:00] VITALS: BP 102/54; PULSE 77; RESP 20; TEMP 36.9; O2SAT 99
[2024-11-07 20:29] VITALS: BP 102/54; PULSE 77
[2024-11-07] MEDS: Atorvastatin Calcium 40 MG TABLET PO (20:54)
[2024-11-07 21:24] LABS: Glucose, Whole Blood 217 mg/dL (60-115)
[2024-11-08] VITALS (11 sets, daily range): BP systolic 98–112; BP diastolic 52–58; PULSE 63–81; RESP 16–20; TEMP 36.7–37.4; O2SAT 92–100; BMI 27.1
[2024-11-08] MEDS: Piperacillin Sodium/Tazobactam 2.25 GM in 0.9 % Sodium Chloride 50 ML IV (04:12)
[2024-11-08] MEDS: oxyCODONE HCl Immed Release 5 MG TABLET PO ×4 (04:13→23:28)
[2024-11-08] MEDS: Omeprazole 20 MG CAPSULE.DR PO (04:47)
[2024-11-08 07:58] LABS: Glucose, Whole Blood 125 mg/dL (60-115)
[2024-11-08] MEDS: calcitrioL 0.25 MCG CAPSULE 0.5 MCG PO (08:59)
[2024-11-08] MEDS: Insulin Glargine,Hum.rec.anlog 100 UNIT/ML 10 ML VIAL 10 UNIT SUBCUT (08:59)
[2024-11-08] MEDS: Multivitamin TABLET 1 TAB PO (08:59)
[2024-11-08] MEDS: Calcium Acetate 667 MG CAPSULE 1334 MG PO ×3 (08:59→16:32)
[2024-11-08] MEDS: Amiodarone HCL 200 MG TABLET PO (08:59)
[2024-11-08] MEDS: Metoprolol Succinate ER 50 MG TAB.ER.24H PO (08:59)
[2024-11-08] MEDS: Buprenorphine/Naloxone 8/2 mg FILM 1 FILM SUBLINGUAL ×3 (08:59→20:17)
[2024-11-08] MEDS: 0.9 % Sodium Chloride Flush 3 ML SYRINGE IVFLUSH ×3 (08:59→19:45)
[2024-11-08] MEDS: Apixaban 5 MG TABLET PO ×2 (09:00→19:43)
[2024-11-08] MEDS: Midodrine HCl 5 MG TABLET PO ×2 (09:00→16:32)
--- NOTE | 2024-11-08 11:04 | P.DS_ITS ---
DS: Providers Provider Date of admission: 11/05/24 14:44 Primary care physician: Cristina Stover MD Consults: 11/05/24 14:10 Consult to Nephrology Routine Consulting Provider: [facility] [place] [facility] Reason for consultation: ESRD, missed dialysis 11/06/24 06:56 Consult to General Surgery Routine Consulting Provider: [facility] [place] [facility] Reason for consultation: Inner thigh wound, need debridement 11/06/24 11:51 Consult to Wound Care Routine Reason for consultation: wound to buttock and right inner thigh DS: Diagnosis Discharge Diagnosis (1) ESRD (end stage renal disease) on dialysis: Status: Acute (2) Sepsis: Status: Acute Physical Exam Vital Signs: Vital Signs: Last Vital Signs Temp 98.2 F 11/08/24 07:37 Pulse 76 11/08/24 08:59 Resp 16 11/08/24 07:37 BP 101/56 L 11/08/24 09:00 Pulse Ox 96 11/08/24 07:37 O2 Del Method Nasal Cannula 11/08/24 07:37 O2 Flow Rate 1 11/08/24 07:37 Oxygen Flow Rate 4 11/05/24 04:40 BMI result Body Mass Index 27.1 DS: Data Data Completed and Pending Completed studies during hospitalization [Text1]: Procedures Detachment at Right 2nd Toe, Complete, Open Approach (04/18/23) Drainage of Left Pleural Cavity with Drainage Device, Percutaneous Approach (10/04/24) Drainage of Left Pleural Cavity, Percutaneous Approach (09/21/24) Excision of Left Foot Skin, External Approach (08/29/24) Excision of Right Foot Subcutaneous Tissue and Fascia, Open Approach (04/18/23) Fluoroscopy of Superior Vena Cava using Low Osmolar Contrast, Guidance (04/18/23) Fluoroscopy of Superior Vena Cava, Guidance (08/29/24) Insertion of Endotracheal Airway into Trachea, Via Natural or Artificial Opening (09/21/24) Insertion of Infusion Device into Right Atrium, Percutaneous Approach (10/04/24) Insertion of Infusion Device into Superior Vena Cava, Percutaneous Approach (10/04/24) Insertion of Tunneled Vascular Access Device into Chest Subcutaneous Tissue and Fascia, Percutaneous Approach (10/04/24) Introduction of Vasopressor into Peripheral Vein, Percutaneous Approach (09/21/24) Performance of Urinary Filtration, Intermittent, Less than 6 Hours Per Day (10/04/24) Transfusion of Nonautologous Red Blood Cells into Peripheral Vein, Percutaneous Approach (08/29/24) Ultrasonography of Superior Vena Cava, Guidance (10/04/24) Labs on day of discharge: Laboratory Results - last 24 hr 11/07/24 11/07/24 11/07/24 07:14 08:32 08:59 POC Glucose 64 79 93 11/07/24 11/07/24 11/07/24 11:22 16:22 21:19 POC Glucose 114 168 H 217 H 11/08/24 07:51 POC Glucose 125 H Preliminary micro results at discharge 11/05/24 11:35 Routine Culture - Preliminary Groin Klebsiella pneumoniae Proteus mirabilis 11/05/24 21:38 Blood Culture - Preliminary Blood - Venous No growth after 48 hours. 11/05/24 21:30 Blood Culture - Preliminary Blood - Venous No growth after 48 hours. 11/05/24 04:49 Blood Culture - Preliminary Blood - Venous No growth after 48 hours. 11/05/24 04:26 Blood Culture - Preliminary Blood - Venous No growth after 48 hours. Discharge Plan Discharge Referrals: Cristina Stover MD [Primary Care Provider] - 1 Week Discharge Medications: No Action metoprolol succinate 50 mg tablet extended release 24 hr 50 mg PO DAILY Qty: 90 0RF midodrine 5 mg Tablet 5 mg PO BID Qty: 60 0RF torsemide 20 mg Tablet 80 mg PO BID Qty: 180 0RF Protocol: Hold for SBP< HOLD for SBP < : 100 multivitamin Tablet 1 tab PO DAILY Qty: 30 0RF atorvastatin 40 mg tablet 40 mg PO BEDTIME Qty: 30 0RF amiodarone 200 mg tablet 200 mg PO DAILY Qty: 90 0RF omeprazole 20 mg capsule,delayed release(DR/EC) 20 mg PO DAILY@0630 Qty: 30 0RF calcitriol 0.25 mcg Capsule 0.5 mcg PO DAILY Qty: 60 0RF calcium acetate(phosphat bind) 667 mg Capsule 1,334 mg PO TIDWM Qty: 120 0RF (DME) pen needle, diabetic 32 gauge x 1/4 needle Qty: 100 0RF Rx Instructions: Use four times a day or as directed. Eliquis 5 mg Tablet 5 mg PO BID Qty: 180 0RF (DME) Dakins solution 1/4 strength 500ml See Rx Instructions .Route .MEDSUPPLY Qty: 1 0RF Rx Instructions: As directed insulin lispro [Humalog KwikPen Insulin] 100 unit/mL insulin pen See Protocol subcut TIDAC Protocol: Insulin Correction Scale Less than or equal to 110 ---- Give (units): 0 111 to 150 Give (units): 0 151 to 200 Give (units): 3 201 to 250 Give (units): 5 251 to 300 Give (units): 8 301 to 350 Give (units): 10 Greater than 350 Give (units): 15 Call MD if Blood Glucose > : 350 insulin glargine 100 unit/mL (3 mL) insulin pen 10 unit subcut DAILY melatonin 5 mg tablet 5 mg PO BEDTIME PRN (Reason: insomnia) (DME) FreeStyle Lite Strips Strip Qty: 100 0RF Rx Instructions: Test four times a day or as directed. (DME) blood-glucose meter Kit Qty: 1 0RF Rx Instructions: As Directed (DME) lancets [FreeStyle Lancets] 28 gauge misc Qty: 100 0RF Rx Instructions: Test four times a day or as directed. buprenorphine-naloxone 8-2 mg film 1 film sublingual TID Qty: 42 1RF Print Language: [place]guill[place]
--- NOTE | 2024-11-08 11:17 | P.PNIM_ITS ---
Subjective Subjective Date of Service: 11/08/24 Interval History: f/u on sepstic shock, hypotension, wound infection BP is better, blood culture so negative, wound culture Klebsiela and proteus--sensitive to ceftriaxone Physical Exam 2 Vital Signs: Vital Signs: Last Vital Signs Temp 98.2 F 11/08/24 07:37 Pulse 76 11/08/24 08:59 Resp 16 11/08/24 07:37 BP 101/56 L 11/08/24 09:00 Pulse Ox 96 11/08/24 07:37 O2 Del Method Nasal Cannula 11/08/24 07:37 O2 Flow Rate 1 11/08/24 07:37 Oxygen Flow Rate 4 11/05/24 04:40 BMI result Body Mass Index 27.1 Const: Other: General: AO X 3, no acute distress Resp: CTA bilateral CVS: S1,S2,RRR GI: +BS, NT, no distention Skin: see h and p pictures Neuro: motor grossly intact Psych: appropriate affect Objective Data Active Medications Acetaminophen (Acetaminophen 325 Mg Tablet) 650 mg PO Q6H PRN PRN Reason: Pain, Mild 1-3,fever,headache Last Admin: 11/06/24 12:21 Dose: 650 mg Documented By: DION Al Hydroxide/Mg Hydroxide (Magnesium Hydrox/Alum Hydrox 30 Ml Oral.Susp) 30 ml PO Q4H PRN PRN Reason: Heartburn Albuterol Sulfate (Albuterol Sulfate 90 Mcg 8 Gm Inhaler) 1 puff INHALE RQ6H PRN PRN Reason: Shortness of Breath/Wheezing Amiodarone HCl (Amiodarone Hcl 200 Mg Tablet) 200 mg PO DAILY [facility] Last Admin: 11/08/24 08:59 Dose: 200 mg Documented By: AUSTIN Apixaban (Apixaban 5 Mg Tablet) 5 mg PO BID [facility] Last Admin: 11/08/24 09:00 Dose: 5 mg Documented By: AUSTIN Atorvastatin Calcium (Atorvastatin Calcium 40 Mg Tablet) 40 mg PO BEDTIME [facility] Last Admin: 11/07/24 20:54 Dose: 40 mg Documented By: CRISTIANO Buprenorphine/Naloxone (Buprenorphine/Naloxone 8/2 Mg Film) 1 film SUBLINGUAL TID [facility] Last Admin: 11/08/24 08:59 Dose: 1 film Documented By: AUSTIN Calcitriol (Calcitriol 0.25 Mcg Capsule) 0.5 mcg PO DAILY [facility] Last Admin: 11/08/24 08:59 Dose: 0.5 mcg Documented By: AUSTIN Calcium Acetate (Calcium Acetate 667 Mg Capsule) 1,334 mg PO TIDWM [facility] Last Admin: 11/08/24 08:59 Dose: 1,334 mg Documented By: AUSTIN Calcium Carbonate (Calcium Carbonate 750 Mg Tab.Chew) 750 mg PO Q4H PRN PRN Reason: Heartburn Glucose (Glucose Gel 15 Gm Gel..Gram.) 15 gm PO Q15M PRN; Protocol PRN Reason: per Hypoglycemia Standing Ord. Dextrose (D10) 250 mls @ 750 mls/hr IV Q15M PRN; Protocol PRN Reason: per Hypoglycemia Standing Ord. Piperacillin Sod/Tazobactam (Sod 2.25 gm/ Sodium Chloride) 50 mls @ 100 mls/hr IV Q8H [facility] Last Infusion: 11/08/24 04:46 Dose: Infused Documented By: CRISTIANO Vancomycin HCl 500 mg/ Sodium (Chloride) 110 mls @ 110 mls/hr IV MoWeFr@1800 [facility] Insulin Glargine (Insulin Glargine,Hum.Rec.Anlog 100 Unit/Ml 10 Ml Vial) 10 unit SUBCUT DAILY [facility] Last Admin: 11/08/24 08:59 Dose: 10 unit Documented By: AUSTIN Insulin Human Lispro (Insulin Lispro 100 Unit/Ml 3 Ml Vial) 0 unit SUBCUT QIDACHS [facility], [facility]; Protocol Last Admin: 11/08/24 08:58 Dose: Not Given Documented By: AUSTIN Non-Admin Reason: No Insulin Coverage Magnesium Hydroxide (Milk Of Magnesia 30 Ml Oral.Susp) 30 ml PO DAILY PRN PRN Reason: Constipation Melatonin (Melatonin 3 Mg Tablet) 6 mg PO BEDTIME PRN PRN Reason: Insomnia Metoprolol Succinate (Metoprolol Succinate Er 50 Mg Tab.Er.24h) 50 mg PO DAILY [facility]; Protocol Last Admin: 11/08/24 08:59 Dose: 50 mg Documented By: AUSTIN Midodrine (Midodrine Hcl 5 Mg Tablet) 5 mg PO BIDWM [facility] Last Admin: 11/08/24 09:00 Dose: 5 mg Documented By: AUSTIN Multivitamins/Vitamin C (Multivitamin Tablet) 1 tab PO DAILY [facility] Last Admin: 11/08/24 08:59 Dose: 1 tab Documented By: AUSTIN Omeprazole (Omeprazole 20 Mg Capsule.) 20 mg PO DAILY@0630 [facility] Last Admin: 11/08/24 04:47 Dose: 20 mg Documented By: CRISTIANO Ondansetron HCl (Ondansetron Hcl 4 Mg/2 Ml Vial) 4 mg IVPUSH Q8H PRN PRN Reason: Nausea and Vomiting Oxycodone HCl (Oxycodone Hcl Immed Release 5 Mg Tablet) 5 mg PO Q4H PRN PRN Reason: Pain, Severe (Pain Scale 7-10) Last Admin: 11/08/24 04:13 Dose: 5 mg Documented By: CRISTIANO Pharmacy Consult (Consult Rx Vancomycin Dosing) 1 each MISCELLANE DAILY PRN PRN Reason: Consult order Polyethylene Glycol (Polyethylene Glycol 3350 17 Gm Powd.Pack) 17 gm PO DAILY PRN PRN Reason: Constipation Sodium Chloride (0.9 % Sodium Chloride Flush 3 Ml Syringe) 3 ml IVFLUSH QSHIFT [facility] Last Admin: 11/08/24 08:59 Dose: 3 ml Documented By: AUSTIN Torsemide (Torsemide 20 Mg Tablet) 80 mg PO BIDWM [facility]; Protocol Last Admin: 11/08/24 09:06 Dose: Not Given Documented By: AUSTIN Non-Admin Reason: Decreased Blood Pressure Labs 11/06/24 07:11 11/06/24 07:11 Labs: Laboratory Results - last 24 hr 11/07/24 11/07/24 11/07/24 07:14 08:32 08:59 POC Glucose 64 79 93 11/07/24 11/07/24 11/07/24 11:22 16:22 21:19 POC Glucose 114 168 H 217 H 11/08/24 07:51 POC Glucose 125 H Microbiology Microbiology Results: Microbiology 11/05/24 11:35 Gram Stain - Final Groin Routine Culture - Preliminary Klebsiella pneumoniae Proteus mirabilis 11/05/24 21:38 Blood Culture - Preliminary Blood - Venous No growth after 48 hours. 11/05/24 21:30 Blood Culture - Preliminary Blood - Venous No growth after 48 hours. 11/05/24 04:49 Blood Culture - Preliminary Blood - Venous No growth after 48 hours. 11/05/24 04:26 Blood Culture - Preliminary Blood - Venous No growth after 48 hours. 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 -wound culture growing Klebsiel and Proteus--sensitive to ceftriaxone -Continue Vancomyin per prior MRSA bacteremia, end date November 17 -DC Zosyn and add Ceftriaxone, starting 11/08 -ID consult ESRD--HD MWF (Nephrology following) Paroxysmal atrial flutter. Continue amiodarone, metoprolol and Eliquis HypOtension--required vasopressors, continue Midodrine and hold diuretic if BP ok, ok to continue metoprolol Elevated troponin, chronic. No chest pain. Likely secondary to end-stage renal disease. Acute on chronic anemia--transfused 1 unit on 11/06, repeat cbc History of drug abuse. Continue Suboxone. Addiction med consult, check utox Pressure ulcer, nursing wound protocol -surgery consult for possible debridment -wound nurse consult Type 2 diabetes mellitus, hypoglycemia this mornng -BG checks before meals at bedtime. -Insulin sliding scale and Lantus. Diabetic diet Hyperlipidemia. Continue atorvastatin. Right BKA. no issues DVT prophylaxis: Eliquis Code status: Full Need for inpt: Septic shock on Iv Abx Quality Stroke Does the patient have a stroke diagnosis?: No VTE Prior VTE?: No VTE Risk Level:: Medical - moderate - high VTE Device Contraindication: Treatment Not Indicated VTE Drug Contraindication: N/A - Med Ordered
[2024-11-08 11:27] LABS: Glucose, Whole Blood 127 mg/dL (60-115)
--- NOTE | 2024-11-08 13:26 | MHC.RECOVRN ---
Patient J CARLOS on 11/05 from home after mother was getting pt up to get picked up for dialysis and he was lethargic and not responding properly. Pt was found to be 70% on room air, oxygen tubing was not attached. Upon evaluation, pt admitted for septic shock. T/w briefly met with pt, as pt was in dialysis, after receiving Addiction Medicine consult for substance use disorder. UDS has been ordered but not collected. Pt currently prescribed Suboxone through the [facility], [facility] 11/10. Pt laying in bed, blankets pulled over his head, moaning quietly. Takes blanket off head when asked. Pt reports he is cold and is experiencing back pain. Pt reports back pain feels similar to when he is in withdrawal from opioids. Pt reports last substance use was 2.5 months ago. Reports he is doing well with Suboxone. Denies questions or concerns at this time. Discussed with Catina Cantu APRN.
[2024-11-08 13:28] LABS: Hematocrit 27.2 % (42.0-52.0); Hemoglobin 8.1 g/dl (14.0-18.0); Mean Corpuscular HGB Conc 29.8 g/dl (31.0-36.0); Mean Corpuscular Hemoglobin 26.1 pg (27.0-33.0); Mean Corpuscular Volume 87.7 fL (80.0-98.0); Mean Platelet Volume 10.2 fL (9.4-12.4); Platelet Count 369 X10*3/uL (160-400); Red Cell Distribution Width 16.2 % (11.0-16.0); White Blood Count 19.1 X10*3/uL (4.8-10.8)
--- NOTE | 2024-11-08 13:43 | MHC.CM.PN ---
EMR reviewed and per MD rounds, pt is not medically cleared for discharge due to management of MRSA bacteremia.
[2024-11-08] MEDS: cefTRIAXone sodium 1 GM VIAL IVPUSH (14:54)
[2024-11-08 16:26] LABS: Glucose, Whole Blood 213 mg/dL (60-115)
[2024-11-08] MEDS: Insulin Lispro 100 UNIT/ML 3 ML VIAL SUBCUT ×2 (16:32→20:30)
--- NOTE | 2024-11-08 16:38 | W.PM.IDCN ---
History of Present Illness Data of Consult Service Date: 11/08/24 Requesting physician: Harley Adler Primary Care Provider: Cristina Stover MD [facility] Reason for consult: groin wound He presents with painful groin wounds over last week. He is not bacteremic but wounds show Klebsiella pneumonia and proteus mirabilis. He has no fever or chills at this time. He is at HD. Review of Systems Review of Systems: Yes all other systems are reviewed and are negative PMFSH Past Medical History Medical History Opioid use disorder, severe, dependence Bacteremia Volume overload Paroxysmal atrial flutter Cardiomyopathy Pericardial effusion Atrial flutter Need for acute hemodialysis Leukocytosis Anemia Anemia Transfusion history Atrial flutter, paroxysmal COPD (chronic obstructive pulmonary disease) Constipation Callus of foot Seizure Polysubstance abuse CKD (chronic kidney disease) stage 3, GFR 30-59 ml/min Foot osteomyelitis, left Amputation of toe of right foot Diabetic ulcer of right foot Hyperglycemia due to type 2 diabetes mellitus Renal failure Sleep apnea Diabetes HTN (hypertension) Family History Family history: reviewed and not pertinent Surgical History Surgical History Hx of right BKA History of surgical procedure (~04/24/23) Social History Social History Household Members: Family Household Members Other:: lives with mother Housing: House Unable to assess alcohol history related to: Unable to respond Alcohol intake: former Comment: bilateral wrist restraints/propofol drip for airway safety Patient Tobacco Use Status: Former Tobacco user Tobacco use type: Cigarette Cigarette Packs Per Day: 0.5 Cigarettes Per Day: 10.0 Years Smoked: 33 e-Cigarette/Vaping Use: Currently Using Second Hand Smoke Exposure: Yes Substance Use Type: Crack/Cocaine, Heroin, Marijuana and Opiates service: No Meds Allergies Allergy/AdvReac Type Severity Reaction Status Date / Time No Known Allergies Allergy Verified 11/05/24 04:46 [No Known Allergies*] Active Medications: Current Medications Acetaminophen (Acetaminophen 325 Mg Tablet) 650 mg PO Q6H PRN PRN Reason: Pain, Mild 1-3,fever,headache Last Admin: 11/06/24 12:21 Dose: 650 mg Al Hydroxide/Mg Hydroxide (Magnesium Hydrox/Alum Hydrox 30 Ml Oral.Susp) 30 ml PO Q4H PRN PRN Reason: Heartburn Albuterol Sulfate (Albuterol Sulfate 90 Mcg 8 Gm Inhaler) 1 puff INHALE RQ6H PRN PRN Reason: Shortness of Breath/Wheezing Amiodarone HCl (Amiodarone Hcl 200 Mg Tablet) 200 mg PO DAILY [facility] Last Admin: 11/08/24 08:59 Dose: 200 mg Apixaban (Apixaban 5 Mg Tablet) 5 mg PO BID [facility] Last Admin: 11/08/24 09:00 Dose: 5 mg Atorvastatin Calcium (Atorvastatin Calcium 40 Mg Tablet) 40 mg PO BEDTIME [facility] Last Admin: 11/07/24 20:54 Dose: 40 mg Buprenorphine/Naloxone (Buprenorphine/Naloxone 8/2 Mg Film) 1 film SUBLINGUAL TID [facility] Last Admin: 11/08/24 14:54 Dose: 1 film Calcitriol (Calcitriol 0.25 Mcg Capsule) 0.5 mcg PO DAILY [facility] Last Admin: 11/08/24 08:59 Dose: 0.5 mcg Calcium Acetate (Calcium Acetate 667 Mg Capsule) 1,334 mg PO TIDWM [facility] Last Admin: 11/08/24 16:32 Dose: 1,334 mg Calcium Carbonate (Calcium Carbonate 750 Mg Tab.Chew) 750 mg PO Q4H PRN PRN Reason: Heartburn Ceftriaxone Sodium (Ceftriaxone Sodium 1 Gm Vial) 1 gm IVPUSH Q24H [facility] Last Admin: 11/08/24 14:54 Dose: 1 gm Glucose (Glucose Gel 15 Gm Gel..Gram.) 15 gm PO Q15M PRN; Protocol PRN Reason: per Hypoglycemia Standing Ord. Dextrose (D10) 250 mls @ 750 mls/hr IV Q15M PRN; Protocol PRN Reason: per Hypoglycemia Standing Ord. Vancomycin HCl 500 mg/ Sodium (Chloride) 110 mls @ 110 mls/hr IV MoWeFr@1800 [facility] Insulin Glargine (Insulin Glargine,Hum.Rec.Anlog 100 Unit/Ml 10 Ml Vial) 10 unit SUBCUT DAILY [facility] Last Admin: 11/08/24 08:59 Dose: 10 unit Insulin Human Lispro (Insulin Lispro 100 Unit/Ml 3 Ml Vial) 0 unit SUBCUT QIDACHS [facility]; Protocol Last Admin: 11/08/24 16:32 Dose: 4 unit Magnesium Hydroxide (Milk Of Magnesia 30 Ml Oral.Susp) 30 ml PO DAILY PRN PRN Reason: Constipation Melatonin (Melatonin 3 Mg Tablet) 6 mg PO BEDTIME PRN PRN Reason: Insomnia Metoprolol Succinate (Metoprolol Succinate Er 50 Mg Tab.Er.24h) 50 mg PO DAILY [facility]; Protocol Last Admin: 11/08/24 08:59 Dose: 50 mg Midodrine (Midodrine Hcl 5 Mg Tablet) 5 mg PO BIDWM [facility] Last Admin: 11/08/24 16:32 Dose: 5 mg Multivitamins/Vitamin C (Multivitamin Tablet) 1 tab PO DAILY [facility] Last Admin: 11/08/24 08:59 Dose: 1 tab Omeprazole (Omeprazole 20 Mg Capsule.Dr) 20 mg PO DAILY@30 [facility] Last Admin: 11/08/24 04:47 Dose: 20 mg Ondansetron HCl (Ondansetron Hcl 4 Mg/2 Ml Vial) 4 mg IVPUSH Q8H PRN PRN Reason: Nausea and Vomiting Oxycodone HCl (Oxycodone Hcl Immed Release 5 Mg Tablet) 5 mg PO Q4H PRN PRN Reason: Pain, Severe (Pain Scale 7-10) Last Admin: 11/08/24 14:57 Dose: 5 mg Pharmacy Consult (Consult Rx Vancomycin Dosing) 1 each MISCELLANE DAILY PRN PRN Reason: Consult order Polyethylene Glycol (Polyethylene Glycol 3350 17 Gm Powd.Pack) 17 gm PO DAILY PRN PRN Reason: Constipation Sodium Chloride (0.9 % Sodium Chloride Flush 3 Ml Syringe) [address] [facility] Last Admin: 11/08/24 16:32 Dose: 3 ml Torsemide (Torsemide 20 Mg Tablet) 80 mg PO BIDWM [facility]; Protocol Last Admin: 11/08/24 16:33 Dose: Not Given Home Medications ?Medication ?Instructions ?Recorded ?Confirmed ?Last Taken ?Type insulin glargine 100 unit/mL (3 10 unit subcut DAILY 09/28/24 11/05/24 11/04/24 History mL) subcutaneous pen insulin lispro 100 unit/mL See Protocol subcut TIDAC 09/28/24 11/05/24 11/04/24 History subcutaneous pen (Humalog KwikPen (U-100) Insulin) melatonin 5 mg tablet 5 mg PO BEDTIME PRN insomnia 09/28/24 11/05/24 11/04/24 History Physical Exam Vital Signs: Vital Signs: Last Vital Signs Temp 98.2 F 11/08/24 15:25 Pulse 81 11/08/24 15:25 Resp 19 11/08/24 15:25 BP 98/52 L 11/08/24 16:33 Pulse Ox 92 11/08/24 15:25 O2 Del Method Room Air 11/08/24 15:25 O2 Flow Rate 2 11/08/24 14:24 Oxygen Flow Rate 4 11/05/24 04:40 BMI result Body Mass Index 27.1 Const: General: cooperative HEENT: Head: Yes normal to inspection Face and sinus: Yes normal facial exam Mouth: Normal oral and palatal mucosa present Teeth and gingiva: dentition normal Eyes: General: appearance normal, both eyes and all related structures Pupils: Equal, round and reactive pupils present Resp: Effort & Inspection: normal respiratory effort Cardio: Rate: regular rate Rhythm: regular rhythm GI: Palpation (GI): Soft to palpation and nontender : Other: groin necrotic areas bilateral General: Yes no CVA tenderness Back/Spine/Pelvis: Back: no CVA tenderness Skin: General skin exam: no rashes or lesions noted Neuro: General: moves all extremities Cranial nerves: Yes Equal, round and reactive pupils present Extrem: General: Yes normal to inspection Psych: Appearance: grossly normal Results Labs 11/08/24 13:08 11/06/24 07:11 Labs: Short CBC 11/08/24 Range/Units 13:08 WBC 19.1 H (4.8-10.8) X10*3/uL Hgb 8.1 L D (14.0-18.0) g/dl Hct 27.2 L D (42.0-52.0) % Plt Count 369 D (160-400) X10*3/uL Microbiology Microbiology Results: Microbiology 11/05/24 11:35 Groin Gram Stain - Final 11/05/24 11:35 Groin Routine Culture - Preliminary Klebsiella pneumoniae Proteus mirabilis 11/05/24 21:38 Blood - Venous Blood Culture - Preliminary No growth after 48 hours. 11/05/24 21:30 Blood - Venous Blood Culture - Preliminary No growth after 48 hours. 11/05/24 04:49 Blood - Venous Blood Culture - Preliminary No growth after 48 hours. 11/05/24 04:26 Blood - Venous Blood Culture - Preliminary No growth after 48 hours. Assessment and Plan (1) Cellulitis: Qualifiers: Site of cellulitis: trunk Site of cellulitis of trunk: abdominal wall Qualified Code(s): L03.311 - Cellulitis of abdominal wall Status: Acute (2) MRSA bacteremia: Status: Acute Plan Bilateral groin gram negative wounds, He may have anerobes also. Recent seen 10/06 MRSA bacteremia and empyema Continue Ceftriaxone 2 - 4 weeks ,2 g after HD Follow local wound care. Flagyl for 3-5 days
--- NOTE | 2024-11-08 17:10 | HO.WOUND ---
Wound Consult: Initial 44yr old Male admitted to [facility] on 11/05/24- See progress notes and H&P for detailed history.? Wound consult placed for Buttock and Right Thigh wound POA.? See Chart for review patient had recent admission. Patient agreeable to assessment and photo documentation - he reports significant pain when cleansing. Patient educated to allow turns and repositions to aid in healing. Chart review reveals he was seen by general surgery and debridement was not needed per note review. There is concern for necrotic tissue to various wound beds however patient would not be able to tolerate bedside debridment given todays assessment. Will discuss with providers and surgeon other treatment options - triad was applied to many wounds today. Initially patient reports he no longer made urine but after assessment and his hospital gown was wet he reports he makes urine when he stools or at time if repositioned. The wounds location suggest the patient's skin is exposed to moisture often. Concern noted for ability to care for self or with his current services at home will discuss with providers and or case mgt. Bilateral Groin Etiology: ?MASD (Moisture Associated Skin Damage) Wound Bed: scattered adherent yellow slough red pink erythema and with moist desquamation noted Drainage / Odor: foul Odor noted flowers yellow drainage noted Edges: ? irregular Corazon wound: ?red erythema and mild induration noted - MASD Goals of Treatment: ? Treated with barrier cream and to slough Sacrococcygeal (Sacrum, Coccyx, and Buttock) Etiology: ?Unstagable Pressure injury -?Present on Admission Wound Bed: Full thickness tissue loss with adherent yellow white slough Drainage / Odor: yellow flowers - mild odor noted Edges: ? irregular Corazon wound: MASD and friction Pain: pain reported Goals of Treatment: ?Triad at this time - will talk with provider regarding Santyl for enzymatic debridement Foam was in use to sacrum - discontinue foam use as this may be trapping moisture to wound bed - recommend Triad and ABD pad for secondary dressing if needed. Of importance the patient and I had a sandra discussion regarding refursing care and interventions. Patietn denies refusals but states cleansing and repositions hurt. We discussed the benefits of cleansing and turning and repositions and the consequences of wound worsening if refusals continue - he reports understanding and at this time reports he will be agreeable to repositions and cleansing after incontinence. Midline Back - Etiology unknown - Presentation not consistent with Deep Tissue Injury - Dark purple maroon purpura noted throughout his body. Recommend protect from friction with foam dressing. Epidermal lifting noted suspect will open. Left Hip - Etiology unknown - Presentation not consistent with Deep Tissue Injury - Dark purple maroon purpura noted throughout his body. Recommend protect from friction with foam dressing and or skin prep. Left Heel Etiology: ?Unstagable Pressure injury -?Present on Admission Wound Bed: Full thickness tissue loss Drainage / Odor: yellow flowers - mild odor noted Edges: ? irregular Corazon wound: maroon nonblanchable tissue Pain: pain reported Goals of Treatment: ?Triad at this time Right Anterior Thigh - Etiology unknown - Location not consistent with Pressure - Adherent necrotic tissue no induration no fluctance noted. Triad and dressing to allow for autolytic debridement. Right Hip - Unstageable Pressure injury - Adherent necrotic tissue no induration no fluctance noted. Triad and dressing to allow for autolytic debridement. Periwound noted for irregular purpura not consistent with DTI. At bedside bag of candy noted - discussed blood sugar control and the impacts on wound healing - he denies eating candy despite it at the bedside. [facility] ordered will follow up tomorrow to ensure proper bed arrival. Recommendations: 1. Turn and Reposition every 2 hours and as needed for patient comfort.? Use pillows or wedges to support off loading positions. 2. Off Load all bony prominences with use of pillows and heel boots if needed.? Apply Preventative foams where needed. ? 3. Monitor for incontinence and moisture control, use barrier creams when needed for prevention and treatment. 4. Provide adequate and supplemental nutrition.? 5. Order low air loss mattress and Pulsate from [facility]. 6. Maintain blood glucose levels per Providers order. 7. Scrotum and Buttock- Off Load Pressure with Q2hr turns and use of pillows. Cleanse with PH balance spray or wipes, pat dry. ?Apply thin layer of Triad to wound bed - only pat and dab no scrub and rub when soiling occurs. Reapply thin layer PRN after each episode of incontinence. 8. Sacrum and Coccyx - Off Load Pressure with Q2hr turns and use of pillows. Cleanse with Stacie spray or PH Balanced wipes, pat dry. ?Apply triad barrier to the wound, cover with ABD pad. Do not use foam dressing at this time. 9. Left Heel, Right Hip, Right Thigh - Cleanse with Ph Blanced wipes, pat dry. Apply Triad to wound bed, cover with ABD pad. Change daily. 10. Left Heel and Bilateral Groin - Cleanse with PH Blanced wipes, pat dry. Apply Triad to periwound, apply Durafiber to wound beds, cover with ABD pad. Change ABD pads as needed for soiling. Recommend follow up out patient Wound Clinic at [address] [place] [id number] and to call for an appointment at time of discharge. [phone].? Re-consult wound care Nurse for wound deterioration or wound changes.
[2024-11-08 17:52] LABS: Amphetamine Screen Urine Not Detected (Not Detect); Appearance Urine Cloudy; Barbiturates, Urine Not Detected (Not Detect); Benzodiazepines Screen Urine Not Detected (Not Detect); Buprenorphine Scr Positive (Not Detect); Cannabinoid Screen Urine Not Detected (Not Detect); Cocaine Screen Urine Not Detected (Not Detect); Color Urine Yellow; Fentanyl, urine Not Detected (Not Detect); Glucose Urine UA 250 mg/dL (Negative); Leukocyte Esterase Urine Moderate (2+) (Negative); Methadone Screen, Urine Not Detected (Not Detect); Nitrite Urine Negative (Negative); Opiate Screen Urine Not Detected (Not Detect); Oxycodone Screen Urine Positive (Not Detect); PH 5.5 (5.0-9.0); Phencyclidine Screen Urine Not Detected (Not Detect); Specific Gravity - Urine 1.015 (1.005-1.025); UMIC TRIGGER UACC YES; Urine Blood Trace (Negative); Urine Ketones Negative (Negative); Urine Protein 300 (3+) mg/dL (Neg-Trace)
[2024-11-08 17:55] LABS: Bacteria Urine None Seen (None Seen); Hyaline Casts Urine 0-2 /LPF (0-2); RBC Urine 0-2 /HPF (0-2); Squamous Epithelial Cell Urine 0-2 /HPF (0-2); UACC Culture Trigger YES; WBC Urine 21-50 /HPF (0-5)
[2024-11-08] MEDS: metroNIDAZOLE/NS 500 MG/100 ML PIGGYBACK 100 MG IV (17:58)
[2024-11-08] MEDS: Acetaminophen 325 MG TABLET 650 MG PO (17:58)
[2024-11-08 19:35] LABS: Vancomycin Random 11.2 mcg/mL (15-20)
--- NOTE | 2024-11-08 19:41 | HE.PHANOTE ---
Re: [facility] trough returned at 11.2. Dosed 500mg one time dose. Next trough 11/10 @ 1900 post dialysis.
[2024-11-08] MEDS: Atorvastatin Calcium 40 MG TABLET PO (19:43)
[2024-11-08 19:52] LABS: Glucose, Whole Blood 222 mg/dL (60-115)
[2024-11-08] MEDS: vancomycin HCL 500 MG in 0.9 % Sodium Chloride 100 ML 110 MG IV (20:29)
[2024-11-08] MEDS: Albuterol Sulfate 90 MCG 8 GM INHALER 1 PUFF INHALE (22:58)
[2024-11-09] VITALS: BP 105/56; PULSE 62; RESP 16; TEMP 36.3; O2SAT 100
[2024-11-09] MEDS: metroNIDAZOLE/NS 500 MG/100 ML PIGGYBACK 100 MG IV ×3 (01:28→18:36)
[2024-11-09 04:00] VITALS: BP 108/57; PULSE 74; RESP 18; TEMP 36.8; O2SAT 98
[2024-11-09] MEDS: oxyCODONE HCl Immed Release 5 MG TABLET PO ×3 (06:33→20:19)
[2024-11-09] MEDS: Omeprazole 20 MG CAPSULE.DR PO (06:33)
[2024-11-09 07:00] VITALS: BP 109/55; PULSE 74; RESP 20; TEMP 37.1; O2SAT 100
[2024-11-09 07:02] LABS: Glucose, Whole Blood 192 mg/dL (60-115)
[2024-11-09] MEDS: Torsemide 20 MG TABLET 80 MG PO ×2 (07:49→17:14)
[2024-11-09] MEDS: Apixaban 5 MG TABLET PO ×2 (07:50→20:18)
[2024-11-09] MEDS: Midodrine HCl 5 MG TABLET PO ×2 (07:50→17:13)
[2024-11-09] MEDS: Multivitamin TABLET 1 TAB PO (07:50)
[2024-11-09] MEDS: Calcium Acetate 667 MG CAPSULE 1334 MG PO ×3 (07:50→17:13)
[2024-11-09] MEDS: Metoprolol Succinate ER 50 MG TAB.ER.24H PO (07:50)
[2024-11-09] MEDS: Amiodarone HCL 200 MG TABLET PO (07:50)
[2024-11-09] MEDS: calcitrioL 0.25 MCG CAPSULE 0.5 MCG PO (07:50)
[2024-11-09] MEDS: Insulin Lispro 100 UNIT/ML 3 ML VIAL SUBCUT ×3 (07:51→20:33)
[2024-11-09] MEDS: Insulin Glargine,Hum.rec.anlog 100 UNIT/ML 10 ML VIAL 10 UNIT SUBCUT (07:51)
[2024-11-09] MEDS: 0.9 % Sodium Chloride Flush 3 ML SYRINGE IVFLUSH ×3 (07:57→20:19)
--- NOTE | 2024-11-09 08:25 | P.PNGS_ITS ---
Subjective Subjective Date of Service: 11/09/24 Interval history: Continued pain from multiple wounds; wound care nurse assessment appreciated. Physical Exam 2 Vital Signs: Vital Signs: Last Vital Signs Temp 98.7 F 11/09/24 07:00 Pulse 74 11/09/24 07:00 Resp 20 11/09/24 07:00 BP 109/55 L 11/09/24 07:00 Pulse Ox 100 11/09/24 07:00 O2 Del Method Nasal Cannula 11/09/24 07:00 O2 Flow Rate 2 11/09/24 07:00 Oxygen Flow Rate 4 11/05/24 04:40 BMI result Body Mass Index 27.1 Const: General: no acute distress Nutritional Appearance: well nourished Orientation/consciousness: patient oriented x3 Resp: Effort & Inspection: normal respiratory effort Skin: Other: Multiple skin wounds and extremities, buttock and groins. The right groin wound overall is slightly improved but still quite tender to palpation. Neuro: General: patient oriented x3 Objective Data Active Medications Acetaminophen (Acetaminophen 325 Mg Tablet) 650 mg PO Q6H PRN PRN Reason: Pain, Mild 1-3,fever,headache Last Admin: 11/08/24 17:58 Dose: 650 mg Documented By: ROSCOE Al Hydroxide/Mg Hydroxide (Magnesium Hydrox/Alum Hydrox 30 Ml Oral.Susp) 30 ml PO Q4H PRN PRN Reason: Heartburn Albuterol Sulfate (Albuterol Sulfate 90 Mcg 8 Gm Inhaler) 1 puff INHALE RQ6H PRN PRN Reason: Shortness of Breath/Wheezing Last Admin: 11/08/24 22:58 Dose: 1 puff Documented By: NICOLAS Amiodarone HCl (Amiodarone Hcl 200 Mg Tablet) 200 mg PO DAILY [facility] Last Admin: 11/09/24 07:50 Dose: 200 mg Documented By: ZAIRE Apixaban (Apixaban 5 Mg Tablet) 5 mg PO BID [facility] Last Admin: 11/09/24 07:50 Dose: 5 mg Documented By: ZAIRE Atorvastatin Calcium (Atorvastatin Calcium 40 Mg Tablet) 40 mg PO BEDTIME [facility] Last Admin: 11/08/24 19:43 Dose: 40 mg Documented By: HU-PRAVEENA Buprenorphine/Naloxone (Buprenorphine/Naloxone 8/2 Mg Film) 1 film SUBLINGUAL TID [facility] Last Admin: 11/08/24 20:17 Dose: 1 film Documented By: CRISTIANO Calcitriol (Calcitriol 0.25 Mcg Capsule) 0.5 mcg PO DAILY [facility] Last Admin: 11/09/24 07:50 Dose: 0.5 mcg Documented By: ZAIRE Calcium Acetate (Calcium Acetate 667 Mg Capsule) 1,334 mg PO TIDWM [facility] Last Admin: 11/09/24 07:50 Dose: 1,334 mg Documented By: ZAIRE Calcium Carbonate (Calcium Carbonate 750 Mg Tab.Chew) 750 mg PO Q4H PRN PRN Reason: Heartburn Ceftriaxone Sodium (Ceftriaxone Sodium 1 Gm Vial) 1 gm IVPUSH Q24H [facility] Last Admin: 11/08/24 14:54 Dose: 1 gm Documented By: ROSCOE Glucose (Glucose Gel 15 Gm Gel..Gram.) 15 gm PO Q15M PRN; Protocol PRN Reason: per Hypoglycemia Standing Ord. Dextrose (D10) 250 mls @ 750 mls/hr IV Q15M PRN; Protocol PRN Reason: per Hypoglycemia Standing Ord. Vancomycin HCl 500 mg/ Sodium (Chloride) 110 mls @ 110 mls/hr IV [id number] [facility] Metronidazole (Flagyl) 500 mg in 100 mls @ 100 mls/hr IV Q8H [facility] Last Infusion: 11/09/24 02:28 Dose: Infused Documented By: CRISTIANO Insulin Glargine (Insulin Glargine,Hum.Rec.Anlog 100 Unit/Ml 10 Ml Vial) 10 unit SUBCUT DAILY [facility] Last Admin: 11/09/24 07:51 Dose: 10 unit Documented By: ZAIRE Insulin Human Lispro (Insulin Lispro 100 Unit/Ml 3 Ml Vial) 0 unit SUBCUT QIDACHS [facility]; Protocol Last Admin: 11/09/24 07:51 Dose: 2 unit Documented By: ZAIRE Magnesium Hydroxide (Milk Of Magnesia 30 Ml Oral.Susp) 30 ml PO DAILY PRN PRN Reason: Constipation Melatonin (Melatonin 3 Mg Tablet) 6 mg PO BEDTIME PRN PRN Reason: Insomnia Metoprolol Succinate (Metoprolol Succinate Er 50 Mg Tab.Er.24h) 50 mg PO DAILY [facility]; Protocol Last Admin: 11/09/24 07:50 Dose: 50 mg Documented By: ZAIRE Midodrine (Midodrine Hcl 5 Mg Tablet) 5 mg PO BIDWM [facility] Last Admin: 11/09/24 07:50 Dose: 5 mg Documented By: ZAIRE Multivitamins/Vitamin C (Multivitamin Tablet) 1 tab PO DAILY [facility] Last Admin: 11/09/24 07:50 Dose: 1 tab Documented By: ZAIRE Omeprazole (Omeprazole 20 Mg Capsule.Dr) 20 mg PO DAILY@0630 [facility] Last Admin: 11/09/24 06:33 Dose: 20 mg Documented By: CRISTIANO Ondansetron HCl (Ondansetron Hcl 4 Mg/2 Ml Vial) 4 mg IVPUSH Q8H PRN PRN Reason: Nausea and Vomiting Oxycodone HCl (Oxycodone Hcl Immed Release 5 Mg Tablet) 5 mg PO Q4H PRN PRN Reason: Pain, Severe (Pain Scale 7-10) Last Admin: 11/09/24 06:33 Dose: 5 mg Documented By: CRISTIANO Pharmacy Consult (Consult Rx Vancomycin Dosing) 1 each MISCELLANE DAILY PRN PRN Reason: Consult order Polyethylene Glycol (Polyethylene Glycol 3350 17 Gm Powd.Pack) 17 gm PO DAILY PRN PRN Reason: Constipation Sodium Chloride (0.9 % Sodium Chloride Flush 3 Ml Syringe) [facility] Last Admin: 11/09/24 07:57 Dose: 3 ml Documented By: ZAIRE Torsemide (Torsemide 20 Mg Tablet) 80 mg PO BIDWM [facility]; Protocol Last Admin: 11/09/24 07:49 Dose: 80 mg Documented By: ZAIRE Labs 11/08/24 13:08 11/06/24 07:11 Labs: Laboratory Results - last 24 hr 11/08/24 11/08/24 11/08/24 11:19 13:08 16:22 MCV 87.7 MCH 26.1 L MCHC 29.8 L RDW 16.2 H Plt Count 369 D MPV 10.2 Absolute Nucleated RBC 0.000 Nucleated RBC % (auto) 0.0 POC Glucose 127 H 213 H Urine Color Urine Appearance Urine pH Ur Specific [place] Urine Protein Urine Glucose (UA) Urine Ketones Urine Blood Urine Nitrite Ur Leukocyte Esterase Urine RBC Urine WBC Ur Squamous Epith Cells Urine Bacteria Hyaline Casts Random Vancomycin Urine Opiates Screen Ur Buprenorphine Scrn Ur Oxycodone Screen Urine Methadone Screen Urine Fentanyl Screen Ur Barbiturates Screen Ur Phencyclidine Scrn Ur Amphetamines Screen U Benzodiazepines Scrn Urine Cocaine Screen U Marijuana (THC) Screen 11/08/24 11/08/24 11/08/24 16:44 19:01 19:46 MCV MCH MCHC RDW Plt Count MPV Absolute Nucleated RBC Nucleated RBC % (auto) POC Glucose 222 H Urine Color Yellow Urine Appearance Cloudy Urine pH 5.5 Ur Specific [place] 1.015 Urine Protein 300 (3+) H Urine Glucose (UA) 250 H Urine Ketones Negative Urine Blood Trace H Urine Nitrite Negative Ur Leukocyte Esterase Moderate (2+) H Urine RBC 0-2 Urine WBC 21-50 H Ur Squamous Epith Cells 0-2 Urine Bacteria None Seen Hyaline Casts 0-2 Random Vancomycin 11.2 L Urine Opiates Screen Not Detected Ur Buprenorphine Scrn Positive H Ur Oxycodone Screen Positive H Urine Methadone Screen Not Detected Urine Fentanyl Screen Not Detected Ur Barbiturates Screen Not Detected Ur Phencyclidine Scrn Not Detected Ur Amphetamines Screen Not Detected U Benzodiazepines Scrn Not Detected Urine Cocaine Screen Not Detected U Marijuana (THC) Screen Not Detected 11/09/24 06:58 MCV MCH MCHC RDW Plt Count MPV Absolute Nucleated RBC Nucleated RBC % (auto) POC Glucose 192 H Urine Color Urine Appearance Urine pH Ur Specific [place] Urine Protein Urine Glucose (UA) Urine Ketones Urine Blood Urine Nitrite Ur Leukocyte Esterase Urine RBC Urine WBC Ur Squamous Epith Cells Urine Bacteria Hyaline Casts Random Vancomycin Urine Opiates Screen Ur Buprenorphine Scrn Ur Oxycodone Screen Urine Methadone Screen Urine Fentanyl Screen Ur Barbiturates Screen Ur Phencyclidine Scrn Ur Amphetamines Screen U Benzodiazepines Scrn Urine Cocaine Screen U Marijuana (THC) Screen Microbiology Microbiology Results: Microbiology 11/08/24 Unknown Urine Culture - Preliminary Urine clean catch - Clean Catch Midstream Culture in progress. 11/05/24 11:35 Gram Stain - Final Groin Routine Culture - Final Klebsiella pneumoniae Proteus mirabilis Pseudomonas aeruginosa Procedures Date of Service Date of Service: 11/09/24 Progress Note: A&P Assessment and plan (1) Cellulitis: Status: Acute Plan 44-year-old male with a difficult constellation of skin wounds in an area not amenable to debridement, best treated with local wound care. Appreciate wound nurse input. Time Spent With Patient Time: Total time managing care of this patient today ____ minutes. Quality Stroke Does the patient have a stroke diagnosis?: No VTE Prior VTE?: No VTE Risk Level:: Medical - moderate - high VTE Device Contraindication: Treatment Not Indicated VTE Drug Contraindication: N/A - Med Ordered
[2024-11-09] MEDS: Buprenorphine/Naloxone 8/2 mg FILM 1 FILM SUBLINGUAL ×3 (09:34→20:18)
--- NOTE | 2024-11-09 10:00 | HO.ADDICTPRO ---
Subjective Subjective Date of Service: 11/09/24 Reason For Visit: Septic shock Interim History: Patient is a 44 year old male medically admitted with septic shock. Medical history includes DM, ESRD with dialysis and OUD. Known to this publications writer via previous admissions and treatment for OUD. Current Suboxone dose 8mg TID --seen by t/w at the [facility] Reporting back pain, and overall feeling unwell. He initially inquired about increasing suboxone dose, then stated that oxycodone is helpful in managing his sx He does have wounds that are likely contributing to discomfort as well Review of Systems Constitutional: Reports as per HPI Mental Status Exam Mental Status Exam Patient Appearance: Appropriate Level of Consciousness: Awake and Appropriate Patient Behavior: Appropriate Mood Description: Anxious Affect Description: Anxious Speech Pattern: Clear Thought Process: Intact Thought Content: positive for Intact Judgement: Good Diagnostics Vital Signs (24Hr): Vital Signs - 24 hr 11/08/24 14:24 11/08/24 15:25 11/08/24 16:32 Temperature 98.0 F 98.2 F Pulse Rate 63 81 Respiratory Rate 18 19 Blood Pressure 108/58 L 98/52 L 98/52 L Pulse Oximetry 97 92 Oxygen Delivery Method Nasal Cannula Room Air Oxygen Flow Rate 2 11/08/24 16:33 11/08/24 20:00 11/08/24 22:59 Temperature 98.3 F Pulse Rate 76 68 Respiratory Rate 18 18 Blood Pressure 98/52 L 107/55 L Pulse Oximetry 99 Oxygen Delivery Method Nasal Cannula Oxygen Flow Rate 2 11/09/24 00:00 11/09/24 04:00 11/09/24 07:00 Temperature 97.4 F 98.2 F 98.7 F Pulse Rate 62 74 74 Respiratory Rate 16 18 20 Blood Pressure 105/56 L 108/57 L 109/55 L Pulse Oximetry 100 98 100 Oxygen Delivery Method Nasal Cannula Nasal Cannula Nasal Cannula Oxygen Flow Rate 2 2 2 BMI result Body Mass Index 27.1 Labs 11/09/24 10:24 11/09/24 10:23 Labs: Laboratory Results - last 48 hr 11/07/24 11/07/24 11/07/24 07:14 08:32 08:59 WBC RBC Hgb Hct MCV MCH MCHC RDW Plt Count MPV Absolute Nucleated RBC Nucleated RBC % (auto) POC Glucose 64 79 93 Urine Color Urine Appearance Urine pH Ur Specific [place] Urine Protein Urine Glucose (UA) Urine Ketones Urine Blood Urine Nitrite Ur Leukocyte Esterase Urine RBC Urine WBC Ur Squamous Epith Cells Urine Bacteria Hyaline Casts Random Vancomycin Urine Opiates Screen Ur Buprenorphine Scrn Ur Oxycodone Screen Urine Methadone Screen Urine Fentanyl Screen Ur Barbiturates Screen Ur Phencyclidine Scrn Ur Amphetamines Screen U Benzodiazepines Scrn Urine Cocaine Screen U Marijuana (THC) Screen 11/07/24 11/07/24 11/07/24 11:22 16:22 21:19 WBC RBC Hgb Hct MCV MCH MCHC RDW Plt Count MPV Absolute Nucleated RBC Nucleated RBC % (auto) POC Glucose 114 168 H 217 H Urine Color Urine Appearance Urine pH Ur Specific [place] Urine Protein Urine Glucose (UA) Urine Ketones Urine Blood Urine Nitrite Ur Leukocyte Esterase Urine RBC Urine WBC Ur Squamous Epith Cells Urine Bacteria Hyaline Casts Random Vancomycin Urine Opiates Screen Ur Buprenorphine Scrn Ur Oxycodone Screen Urine Methadone Screen Urine Fentanyl Screen Ur Barbiturates Screen Ur Phencyclidine Scrn Ur Amphetamines Screen U Benzodiazepines Scrn Urine Cocaine Screen U Marijuana (THC) Screen 11/08/24 11/08/24 11/08/24 07:51 11:19 13:08 WBC 19.1 H RBC 3.10 L D Hgb 8.1 L D Hct 27.2 L D MCV 87.7 MCH 26.1 L MCHC 29.8 L RDW 16.2 H Plt Count 369 D MPV 10.2 Absolute Nucleated RBC 0.000 Nucleated RBC % (auto) 0.0 POC Glucose 125 H 127 H Urine Color Urine Appearance Urine pH Ur Specific [place] Urine Protein Urine Glucose (UA) Urine Ketones Urine Blood Urine Nitrite Ur Leukocyte Esterase Urine RBC Urine WBC Ur Squamous Epith Cells Urine Bacteria Hyaline Casts Random Vancomycin Urine Opiates Screen Ur Buprenorphine Scrn Ur Oxycodone Screen Urine Methadone Screen Urine Fentanyl Screen Ur Barbiturates Screen Ur Phencyclidine Scrn Ur Amphetamines Screen U Benzodiazepines Scrn Urine Cocaine Screen U Marijuana (THC) Screen 11/08/24 11/08/24 11/08/24 16:22 16:44 19:01 WBC RBC Hgb Hct MCV MCH MCHC RDW Plt Count MPV Absolute Nucleated RBC Nucleated RBC % (auto) POC Glucose 213 H Urine Color Yellow Urine Appearance Cloudy Urine pH 5.5 Ur Specific [place] 1.015 Urine Protein 300 (3+) H Urine Glucose (UA) 250 H Urine Ketones Negative Urine Blood Trace H Urine Nitrite Negative Ur Leukocyte Esterase Moderate (2+) H Urine RBC 0-2 Urine WBC 21-50 H Ur Squamous Epith Cells 0-2 Urine Bacteria None Seen Hyaline Casts 0-2 Random Vancomycin 11.2 L Urine Opiates Screen Not Detected Ur Buprenorphine Scrn Positive H Ur Oxycodone Screen Positive H Urine Methadone Screen Not Detected Urine Fentanyl Screen Not Detected Ur Barbiturates Screen Not Detected Ur Phencyclidine Scrn Not Detected Ur Amphetamines Screen Not Detected U Benzodiazepines Scrn Not Detected Urine Cocaine Screen Not Detected U Marijuana (THC) Screen Not Detected 11/08/24 11/09/24 19:46 06:58 WBC RBC Hgb Hct MCV MCH MCHC RDW Plt Count MPV Absolute Nucleated RBC Nucleated RBC % (auto) POC Glucose 222 H 192 H Urine Color Urine Appearance Urine pH Ur Specific [place] Urine Protein Urine Glucose (UA) Urine Ketones Urine Blood Urine Nitrite Ur Leukocyte Esterase Urine RBC Urine WBC Ur Squamous Epith Cells Urine Bacteria Hyaline Casts Random Vancomycin Urine Opiates Screen Ur Buprenorphine Scrn Ur Oxycodone Screen Urine Methadone Screen Urine Fentanyl Screen Ur Barbiturates Screen Ur Phencyclidine Scrn Ur Amphetamines Screen U Benzodiazepines Scrn Urine Cocaine Screen U Marijuana (THC) Screen Imaging Radiology Impressions: ITS Impressions Pelvis CT 11/05/24 11:21 IMPRESSION: Cellulitis lower anterior abdominal wall extending to bilateral proximal lateral thighs. There is an small laceration along the right proximal lateral thigh but no underlying abscess or radiopaque foreign body seen. Electronically signed by: Tobias Barnett MD 11/05/2024 12:59 PM [facility] Medications Medications Current Medications Acetaminophen (Acetaminophen 325 Mg Tablet) 650 mg PO Q6H PRN PRN Reason: Pain, Mild 1-3,fever,headache Last Admin: 11/08/24 17:58 Dose: 650 mg Al Hydroxide/Mg Hydroxide (Magnesium Hydrox/Alum Hydrox 30 Ml Oral.Susp) 30 ml PO Q4H PRN PRN Reason: Heartburn Albuterol Sulfate (Albuterol Sulfate 90 Mcg 8 Gm Inhaler) 1 puff INHALE RQ6H PRN PRN Reason: Shortness of Breath/Wheezing Last Admin: 11/08/24 22:58 Dose: 1 puff Amiodarone HCl (Amiodarone Hcl 200 Mg Tablet) 200 mg PO DAILY LYSSA Last Admin: 11/09/24 07:50 Dose: 200 mg Apixaban (Apixaban 5 Mg Tablet) 5 mg PO BID [facility] Last Admin: 11/09/24 07:50 Dose: 5 mg Atorvastatin Calcium (Atorvastatin Calcium 40 Mg Tablet) 40 mg PO BEDTIME [facility] Last Admin: 11/08/24 19:43 Dose: 40 mg Buprenorphine/Naloxone (Buprenorphine/Naloxone 8/2 Mg Film) 1 film SUBLINGUAL TID [facility] Last Admin: 11/09/24 09:34 Dose: 1 film Calcitriol (Calcitriol 0.25 Mcg Capsule) 0.5 mcg PO DAILY [facility] Last Admin: 11/09/24 07:50 Dose: 0.5 mcg Calcium Acetate (Calcium Acetate 667 Mg Capsule) 1,334 mg PO TIDWM [facility] Last Admin: 11/09/24 07:50 Dose: 1,334 mg Calcium Carbonate (Calcium Carbonate 750 Mg Tab.Chew) 750 mg PO Q4H PRN PRN Reason: Heartburn Ceftriaxone Sodium (Ceftriaxone Sodium 1 Gm Vial) 1 gm IVPUSH Q24H [facility] Last Admin: 11/08/24 14:54 Dose: 1 gm Collagenase (Collagenase Clostridium Hist. 30 Gm Tube) 1 appl TOPICAL BID [facility]; Protocol Glucose (Glucose Gel 15 Gm Gel..Gram.) 15 gm PO Q15M PRN; Protocol PRN Reason: per Hypoglycemia Standing Ord. Dextrose (D10) 250 mls @ 750 mls/hr IV Q15M PRN; Protocol PRN Reason: per Hypoglycemia Standing Ord. Vancomycin HCl 500 mg/ Sodium (Chloride) 110 mls @ 110 mls/hr IV MoWeFr@1800 [facility] Metronidazole (Flagyl) 500 mg in 100 mls @ 100 mls/hr IV Q8H [facility] Last Admin: 11/09/24 09:32 Dose: 100 mls/hr Insulin Glargine (Insulin Glargine,Hum.Rec.Anlog 100 Unit/Ml 10 Ml Vial) 10 unit SUBCUT DAILY [facility] Last Admin: 11/09/24 07:51 Dose: 10 unit Insulin Human Lispro (Insulin Lispro 100 Unit/Ml 3 Ml Vial) 0 unit SUBCUT QIDACHS [facility]; Protocol Last Admin: 11/09/24 07:51 Dose: 2 unit Magnesium Hydroxide (Milk Of Magnesia 30 Ml Oral.Susp) 30 ml PO DAILY PRN PRN Reason: Constipation Melatonin (Melatonin 3 Mg Tablet) 6 mg PO BEDTIME PRN PRN Reason: Insomnia Metoprolol Succinate (Metoprolol Succinate Er 50 Mg Tab.Er.24h) 50 mg PO DAILY [facility]; Protocol Last Admin: 11/09/24 07:50 Dose: 50 mg Midodrine (Midodrine Hcl 5 Mg Tablet) 5 mg PO BIDWM [facility] Last Admin: 11/09/24 07:50 Dose: 5 mg Multivitamins/Vitamin C (Multivitamin Tablet) 1 tab PO DAILY [facility] Last Admin: 11/09/24 07:50 Dose: 1 tab Omeprazole (Omeprazole 20 Mg Capsule.Dr) 20 mg PO DAILY@0630 [facility] Last Admin: 11/09/24 06:33 Dose: 20 mg Ondansetron HCl (Ondansetron Hcl 4 Mg/2 Ml Vial) 4 mg IVPUSH Q8H PRN PRN Reason: Nausea and Vomiting Oxycodone HCl (Oxycodone Hcl Immed Release 5 Mg Tablet) 5 mg PO Q4H PRN PRN Reason: Pain, Severe (Pain Scale 7-10) Last Admin: 11/09/24 06:33 Dose: 5 mg Pharmacy Consult (Consult Rx Vancomycin Dosing) 1 each MISCELLANE DAILY PRN PRN Reason: Consult order Polyethylene Glycol (Polyethylene Glycol 3350 17 Gm Powd.Pack) 17 gm PO DAILY PRN PRN Reason: Constipation Sodium Chloride (0.9 % Sodium Chloride Flush 3 Ml Syringe) 3 ml IVFLUSH QSHIFT [facility] Last Admin: 11/09/24 07:57 Dose: 3 ml Torsemide (Torsemide 20 Mg Tablet) 80 mg PO BIDWM [facility]; Protocol Last Admin: 11/09/24 07:49 Dose: 80 mg Allergies Allergies Allergy/AdvReac Type Severity Reaction Status Date / Time No Known Allergies Allergy Verified 11/05/24 04:46 [No Known Allergies*] Assessment & Plan Assessment & Plan (1) Opioid use disorder, severe, dependence: Status: Acute Code(s): F11.20 - Opioid dependence, uncomplicated Assessment and Plan: continue suboxone as ordered PRN pain meds as needed please ensure patient has suboxone rx sent at time of discharge Total time managing care of this patient today __20__ minutes.
[2024-11-09 10:47] LABS: Hematocrit 23.2 % (42.0-52.0); Hemoglobin 7.1 g/dl (14.0-18.0); Mean Corpuscular HGB Conc 30.6 g/dl (31.0-36.0); Mean Corpuscular Hemoglobin 26.9 pg (27.0-33.0); Mean Corpuscular Volume 87.9 fL (80.0-98.0); Platelet Count 353 X10*3/uL (160-400); Red Blood Count 2.64 X10*6/uL (4.60-5.80); White Blood Count 19.8 X10*3/uL (4.8-10.8)
[2024-11-09 10:57] LABS: Glucose, Whole Blood 128 mg/dL (60-115)
[2024-11-09 11:20] VITALS: BP 105/54; PULSE 76; RESP 18; TEMP 37.1; O2SAT 100
[2024-11-09] MEDS: cefTRIAXone sodium 1 GM VIAL IVPUSH (11:21)
[2024-11-09] MEDS: Collagenase Clostridium Hist. 30 GM TUBE 1 APPL TOPICAL ×2 (11:21→20:22)
[2024-11-09 11:23] LABS: Anion Gap 11 (12-20); Blood Urea Nitrogen 31 mg/dL (9-16); Calcium 8.4 mg/dL (8.4-10.2); Carbon Dioxide 23 mmol/L (22-29); Chloride 103 mmol/L (96-108); Creatinine Clr Calc Pharmacy 22.9; Estimated Glomerular Filt Rate 16; Glucose Random 135 mg/dL (60-115); Potassium 3.5 mmol/L (3.3-5.1); Sodium 133 mmol/L (135-145)
--- NOTE | 2024-11-09 12:41 | HO.WOUND ---
Wound Consult: Follow up 44yr old Male admitted to [facility] on 11/05/24- See progress notes and H&P for detailed history.? Wound consult Follow up for Sacrococcygeal, Bilateral Groin, Right Thigh, Right Hip, Left Heel and Right Flank wounds POA.? See Chart for review of recent admission. Patient agreeable to assessment and photo documentation - he reports significant pain when cleansing. Mom present at bedside and patient provided permission to have mom stay - discussed with mom concerns for care at home - she reports she is unable to care for the patient at the current state. She reports the patient is often refusing to get cleaned and care provided. I informed the patient his refusal for care has a direct correlation to his wound progression and development. We again discussed allowing turns and repositions to aid in healing. TT with Dr. Araya today regarding concerns for wounds in various stages of healing and approach towards healing. He is in agreement with Santyl for Enzymatic debridement at this time since he is not a candidate for bedside or surgical debridement. TT to Dr. Covington with concerns for care at home and concerns for various wounds - he reports he will follow up with case mgt for care options. Bilateral Groin 11/08/24 Right Groin Left Groin Etiology: ?MASD (Moisture Associated Skin Damage) Wound Bed: Full thickness tissue injury - scattered adherent yellow slough red pink erythema and with moist desquamation noted Drainage / Odor: mild Odor noted flowers yellow drainage noted Edges: ? irregular Corazon wound: ?red erythema and firm induration noted - MASD no fluctuance noted Goals of Treatment: ? Santly for enzymatic debridement switched from [employer] 11/08/24 11/09/24 (Slight improvement in periwound noted 24hr post Triad initiated - No new topical recommendations needed) Sacrococcygeal (Sacrum, Coccyx, and Buttock) Etiology: ?Unstagable Pressure injury -?Present on Admission Wound Bed: Full thickness tissue loss with adherent yellow white slough Drainage / Odor: yellow flowers - mild odor noted Edges: ? irregular Corazon wound: MASD and friction Pain: pain reported Goals of Treatment: ?Triad at this time - will talk with provider regarding Santyl for enzymatic debridement Do not use foam use as this may be trapping moisture to wound bed - recommend Triad and ABD pad for secondary dressing if needed. Of importance the patient and I had a sandra discussion regarding refusing care and interventions. Patient denies refusals but states cleansing and repositions hurt. We discussed the benefits of cleansing and turning and repositions and the consequences of wound worsening if refusals continue - he reports understanding and at this time reports he will be agreeable to repositions and cleansing after incontinence. The patient over night was switched to a Agility Pulsate bed which will benefit the patients skin and wounds. 11/08/24 11/09/24 Midline Back - Etiology unknown - Presentation not consistent with Deep Tissue Injury - Dark purple maroon purpura noted throughout his body. Recommend protect from friction with xeroform and ABD dry dressing. Epidermal lifting noted suspect will open. 11/09/24 Left Hip - Etiology unknown - Presentation not consistent with Deep Tissue Injury - Dark purple maroon purpura noted throughout his body. Recommend protect from friction with foam dressing and or skin prep. 11/08/24 11/09/24 Left Heel Etiology: ?Unstagable Pressure injury -?Present on Admission 1cm x 1.2cm x 0.3cm Wound Bed: Full thickness tissue loss adherent necrotic tissue black brown and flowers Drainage / Odor: yellow flowers - mild odor noted Edges: ? irregular macerated and thickly callused Corazon wound: maroon nonblanchable tissue Pain: pain reported Goals of Treatment: Switched from?Triad to Santyl for enzymatic debridement Right Anterior Thigh - Etiology unknown - Location not consistent with Pressure - Adherent necrotic leather like tissue no induration no fluctance noted. Switched from Triad to Santyl for enzymatic debridement. Right Hip - Unstageable Pressure injury - Adherent necrotic leatherlife tissue no induration slight fluctance noted. Switched from Triad to Santyl for enzymatic debridement. Periwound noted for irregular purpura not consistent with DTI. Agility Pulsate bed in use. Recommendations: 1. Turn and Reposition every 2 hours and as needed for patient comfort.? Use pillows or wedges to support off loading positions. 2. Off Load all bony prominences with use of pillows and heel boots if needed.? Apply Preventative foams where needed. ? 3. Monitor for incontinence and moisture control, use barrier creams when needed for prevention and treatment. Recommend Condom cath for urinary containment as patient is incontinent of urine at times. 4. Provide adequate and supplemental nutrition.? 5. Continue Pulsate from Agility bed. 6. Maintain blood glucose levels per Providers order. 7. Scrotum and Sacrum and Coccyx Buttock- Off Load Pressure with Q2hr turns and use of pillows. Cleanse with PH balance spray or wipes, pat dry. ?Apply thin layer of Triad to wound bed - only pat and dab no scrub and rub when soiling occurs. Reapply thin layer PRN after each episode of incontinence. Do not use foam dressing at this time. 8. Left Heel, Right Hip, Right Thigh and bilateral groin - Cleanse with Stacie [place] and NS moist gauze, pat dry. Apply Triad to periwound, apply thick layer of Santyl to entire wound bed, cover with gauze, ABD dressing, change Daily. 9. Mid Back - Gently cleanse with NS moist gauuze, pat dry. Apply skin prep allow to dry. Cover wound bed with thin single layer of xeroform and ABD pad. Change daily. Recommend follow up out patient Wound Clinic at [address] [place] [id number] and to call for an appointment at time of discharge. [phone].? Re-consult wound care Nurse for wound deterioration or wound changes.
--- NOTE | 2024-11-09 13:13 | HO.WOUND ---
Wound Consult: Follow up 44yr old Male admitted to [facility] on 11/05/24- See progress notes and H&P for detailed history.? Wound consult Follow up for Sacrococcygeal, Bilateral Groin, Right Thigh, Right Hip, Left Heel and Right Flank wounds POA.? See Chart for review of recent admission. Patient agreeable to assessment and photo documentation - he reports significant pain when cleansing. Mom present at bedside and patient provided permission to have mom stay - discussed with mom concerns for care at home - she reports she is unable to care for the patient at the current state. She reports the patient is often refusing to get cleaned and care provided. I informed the patient his refusal for care has a direct correlation to his wound progression and development. We again discussed allowing turns and repositions to aid in healing. TT with Dr. Araya today regarding concerns for wounds in various stages of healing and approach towards healing. He is in agreement with Santyl for Enzymatic debridement at this time since he is not a candidate for bedside or surgical debridement. TT to Dr. Covington with concerns for care at home and concerns for various wounds - he reports he will follow up with case mgt for care options. Bilateral Groin 11/08/24 Right Groin Right Inferior site - stable black dry firm eschar - 4.5cm x2cm x 0.2cmPaint with Betadine and keep dry. Left Groin Etiology: ?MASD (Moisture Associated Skin Damage) Left Groin 3cm x 3cm x 0.4cm Right Groin 10.5cm x 6.5cm x 0.3cm Wound Bed: Full thickness tissue injury - scattered adherent yellow slough red pink erythema and with moist desquamation noted Drainage / Odor: mild Odor noted flowers yellow drainage noted Edges: ? irregular Corazon wound: ?red erythema and firm induration noted - MASD no fluctuance noted Goals of Treatment: ? Santly for enzymatic debridement switched from [employer] 11/08/24 11/09/24 (Slight improvement in periwound noted 24hr post Triad initiated - No new topical recommendations needed) Sacrococcygeal (Sacrum, Coccyx, and Buttock) 9cm x 6cm x 0.3cm Etiology: ?Unstagable Pressure injury -?Present on Admission Wound Bed: Full thickness tissue loss with adherent yellow white slough Drainage / Odor: yellow flowers - mild odor noted Edges: ? irregular Corazon wound: MASD and friction Pain: pain reported Goals of Treatment: ?Triad at this time - will talk with provider regarding Santyl for enzymatic debridement Do not use foam use as this may be trapping moisture to wound bed - recommend Triad and ABD pad for secondary dressing if needed. Of importance the patient and I had a sandra discussion regarding refusing care and interventions. Patient denies refusals but states cleansing and repositions hurt. We discussed the benefits of cleansing and turning and repositions and the consequences of wound worsening if refusals continue - he reports understanding and at this time reports he will be agreeable to repositions and cleansing after incontinence. The patient over night was switched to a Agility Pulsate bed which will benefit the patients skin and wounds. 11/08/24 11/09/24 Midline Back - Etiology unknown - Presentation not consistent with Deep Tissue Injury - Dark purple maroon purpura noted throughout his body. 8cm x 4cm x 0.1cm Recommend protect from friction with xeroform and ABD dry dressing. Epidermal lifting noted suspect will open. 11/09/24 Left Hip - Etiology unknown - Presentation not consistent with Deep Tissue Injury - Dark purple maroon purpura noted throughout his body. 1cm x 1cm Recommend protect from friction with foam dressing and or skin prep. 11/08/24 11/09/24 Left Heel Etiology: ?Unstagable Pressure injury -?Present on Admission 1cm x 1.2cm x 0.3cm Wound Bed: Full thickness tissue loss adherent necrotic tissue black brown and flowers Drainage / Odor: yellow flowers - mild odor noted Edges: ? irregular macerated and thickly callused Corazon wound: maroon nonblanchable tissue Pain: pain reported Goals of Treatment: Switched from?Triad to Santyl for enzymatic debridement Right Anterior Thigh - Etiology unknown - Location not consistent with Pressure - Adherent necrotic leather like tissue no induration no fluctance noted. 10cm x 4cm x 0.3cm Switched from Triad to Santyl for enzymatic debridement. Right Hip - Unstageable Pressure injury - Adherent necrotic leatherlife tissue no induration slight fluctance noted. 11.5cm x 8cm x 0.2cm Switched from Triad to Santyl for enzymatic debridement. Periwound noted for irregular purpura not consistent with DTI. Right Flank sites with adherent yellow slought noted 1cm x 2cm x 0.2cm - Triad and foam dressing applied. Agility Pulsate bed in use. Recommendations: 1. Turn and Reposition every 2 hours and as needed for patient comfort.? Use pillows or wedges to support off loading positions. 2. Off Load all bony prominences with use of pillows and heel boots if needed.? Apply Preventative foams where needed. ? 3. Monitor for incontinence and moisture control, use barrier creams when needed for prevention and treatment. Recommend Condom cath for urinary containment as patient is incontinent of urine at times. 4. Provide adequate and supplemental nutrition.? 5. Continue Pulsate from Agility bed. 6. Maintain blood glucose levels per Providers order. 7. Scrotum and Sacrum and Coccyx Buttock- Off Load Pressure with Q2hr turns and use of pillows. Cleanse with PH balance spray or wipes, pat dry. ?Apply thin layer of Triad to wound bed - only pat and dab no scrub and rub when soiling occurs. Reapply thin layer PRN after each episode of incontinence. Do not use foam dressing at this time. 8. Left Heel, Right Hip, Right Thigh and bilateral groin - Cleanse with Stacie [place] and NS moist gauze, pat dry. Apply Triad to periwound, apply thick layer of Santyl to entire wound bed, cover with gauze, ABD dressing, change Daily. 9. Mid Back - Gently cleanse with NS moist gauuze, pat dry. Apply skin prep allow to dry. Cover wound bed with thin single layer of xeroform and ABD pad. Change daily. Recommend follow up out patient Wound Clinic at [address] [place] [id number] and to call for an appointment at time of discharge. [phone].? Re-consult wound care Nurse for wound deterioration or wound changes.
[2024-11-09 15:47] VITALS: BP 111/55; PULSE 77; RESP 20; TEMP 37.6; O2SAT 100
[2024-11-09 16:12] LABS: Glucose, Whole Blood 283 mg/dL (60-115)
--- NOTE | 2024-11-09 16:14 | HO.PM.IMPN ---
Subjective Subjective Date of Service: 11/09/24 Interval History: wound infection Review of Systems blood culture so negative, wound culture Klebsiela and proteus--sensitive to ceftriaxone, pseudomonas senstive to cipro Physical Exam Vital Signs: Vital Signs: Last Vital Signs Temp 99.6 F 11/09/24 15:47 Pulse 77 11/09/24 15:47 Resp 20 11/09/24 15:47 BP 111/55 L 11/09/24 15:47 Pulse Ox 100 11/09/24 15:47 O2 Del Method Nasal Cannula 11/09/24 15:47 O2 Flow Rate 2 11/09/24 15:47 Oxygen Flow Rate 4 11/05/24 04:40 BMI result Body Mass Index 27.1 General: AO X 3, no acute distress Resp: CTA bilateral CVS: S1,S2,RRR GI: +BS, NT, no distention Skin: see h and p pictures Neuro: motor grossly intact Psych: appropriate affect Objective Data Active Medications Acetaminophen (Acetaminophen 325 Mg Tablet) 650 mg PO Q6H PRN PRN Reason: Pain, Mild 1-3,fever,headache Last Admin: 11/08/24 17:58 Dose: 650 mg Documented By: ROSCOE Al Hydroxide/Mg Hydroxide (Magnesium Hydrox/Alum Hydrox 30 Ml Oral.Susp) 30 ml PO Q4H PRN PRN Reason: Heartburn Albuterol Sulfate (Albuterol Sulfate 90 Mcg 8 Gm Inhaler) 1 puff INHALE RQ6H PRN PRN Reason: Shortness of Breath/Wheezing Last Admin: 11/08/24 22:58 Dose: 1 puff Documented By: NICOLAS Amiodarone HCl (Amiodarone Hcl 200 Mg Tablet) 200 mg PO DAILY [facility] Last Admin: 11/09/24 07:50 Dose: 200 mg Documented By: ZAIRE Apixaban (Apixaban 5 Mg Tablet) 5 mg PO BID [facility] Last Admin: 11/09/24 07:50 Dose: 5 mg Documented By: ZAIRE Atorvastatin Calcium (Atorvastatin Calcium 40 Mg Tablet) 40 mg PO BEDTIME [facility] Last Admin: 11/08/24 19:43 Dose: 40 mg Documented By: CRISTIANO Buprenorphine/Naloxone (Buprenorphine/Naloxone 8/2 Mg Film) 1 film SUBLINGUAL TID [facility] Last Admin: 11/09/24 15:06 Dose: 1 film Documented By: ZAIRE Calcitriol (Calcitriol 0.25 Mcg Capsule) 0.5 mcg PO DAILY [facility] Last Admin: 11/09/24 07:50 Dose: 0.5 mcg Documented By: ZAIRE Calcium Acetate (Calcium Acetate 667 Mg Capsule) 1,334 mg PO TIDWM [facility] Last Admin: 11/09/24 11:21 Dose: 1,334 mg Documented By: GIL Calcium Carbonate (Calcium Carbonate 750 Mg Tab.Chew) 750 mg PO Q4H PRN PRN Reason: Heartburn Ceftriaxone Sodium (Ceftriaxone Sodium 1 Gm Vial) 1 gm IVPUSH Q24H [facility] Last Admin: 11/09/24 11:21 Dose: 1 gm Documented By: GIL Collagenase (Collagenase Clostridium Hist. 30 Gm Tube) 1 appl TOPICAL BID [facility]; Protocol Last Admin: 11/09/24 11:21 Dose: 1 appl Documented By: GIL Glucose (Glucose Gel 15 Gm Gel..Gram.) 15 gm PO Q15M PRN; Protocol PRN Reason: per Hypoglycemia Standing Ord. Dextrose (D10) 250 mls @ 750 mls/hr IV Q15M PRN; Protocol PRN Reason: per Hypoglycemia Standing Ord. Vancomycin HCl 500 mg/ Sodium (Chloride) 110 mls @ 110 mls/hr IV MoWeFr@1800 [facility] Metronidazole (Flagyl) 500 mg in 100 mls @ 100 mls/hr IV Q8H [facility] Last Infusion: 11/09/24 11:48 Dose: Infused Documented By: ZAIRE Insulin Glargine (Insulin Glargine,Hum.Rec.Anlog 100 Unit/Ml 10 Ml Vial) 10 unit SUBCUT DAILY [facility] Last Admin: 11/09/24 07:51 Dose: 10 unit Documented By: ZAIRE Insulin Human Lispro (Insulin Lispro 100 Unit/Ml 3 Ml Vial) 0 unit SUBCUT QIDACHS [facility]; Protocol Last Admin: 11/09/24 11:12 Dose: Not Given Documented By: ZAIRE Non-Admin Reason: No Insulin Coverage Magnesium Hydroxide (Milk Of Magnesia 30 Ml Oral.Susp) 30 ml PO DAILY PRN PRN Reason: Constipation Melatonin (Melatonin 3 Mg Tablet) 6 mg PO BEDTIME PRN PRN Reason: Insomnia Metoprolol Succinate (Metoprolol Succinate Er 50 Mg Tab.Er.24h) 50 mg PO DAILY [facility]; Protocol Last Admin: 11/09/24 07:50 Dose: 50 mg Documented By: ZAIRE Midodrine (Midodrine Hcl 5 Mg Tablet) 5 mg PO BIDWM [facility] Last Admin: 11/09/24 07:50 Dose: 5 mg Documented By: ZAIRE Multivitamins/Vitamin C (Multivitamin Tablet) 1 tab PO DAILY [facility] Last Admin: 11/09/24 07:50 Dose: 1 tab Documented By: ZAIRE Omeprazole (Omeprazole 20 Mg Capsule.Dr) 20 mg PO DAILY@0630 [facility] Last Admin: 11/09/24 06:33 Dose: 20 mg Documented By: CRISTIANO Ondansetron HCl (Ondansetron Hcl 4 Mg/2 Ml Vial) 4 mg IVPUSH Q8H PRN PRN Reason: Nausea and Vomiting Oxycodone HCl (Oxycodone Hcl Immed Release 5 Mg Tablet) 5 mg PO Q4H PRN PRN Reason: Pain, Severe (Pain Scale 7-10) Last Admin: 11/09/24 12:19 Dose: 5 mg Documented By: GIL Pharmacy Consult (Consult Rx Vancomycin Dosing) 1 each MISCELLANE DAILY PRN PRN Reason: Consult order Polyethylene Glycol (Polyethylene Glycol 3350 17 Gm Powd.Pack) 17 gm PO DAILY PRN PRN Reason: Constipation Sodium Chloride (0.9 % Sodium Chloride Flush 3 Ml Syringe) 3 ml IVFLUSH QSHIFT [facility] Last Admin: 11/09/24 15:12 Dose: 3 ml Documented By: ZAIRE Torsemide (Torsemide 20 Mg Tablet) 80 mg PO BIDWM [facility]; Protocol Last Admin: 11/09/24 07:49 Dose: 80 mg Documented By: ZAIRE Labs 11/09/24 10:24 11/09/24 10:23 Labs: Laboratory Results - last 24 hr 11/08/24 11/08/24 11/08/24 16:22 16:44 19:01 MCV MCH MCHC RDW Plt Count MPV Absolute Nucleated RBC Nucleated RBC % (auto) Anion Gap Estim Creat Clear Calc Estimated GFR POC Glucose 213 H Random Glucose Calcium Urine Color Yellow Urine Appearance Cloudy Urine pH 5.5 Ur Specific [place] 1.015 Urine Protein 300 (3+) H Urine Glucose (UA) 250 H Urine Ketones Negative Urine Blood Trace H Urine Nitrite Negative Ur Leukocyte Esterase Moderate (2+) H Urine RBC 0-2 Urine WBC 21-50 H Ur Squamous Epith Cells 0-2 Urine Bacteria None Seen Hyaline Casts 0-2 Random Vancomycin 11.2 L Urine Opiates Screen Not Detected Ur Buprenorphine Scrn Positive H Ur Oxycodone Screen Positive H Urine Methadone Screen Not Detected Urine Fentanyl Screen Not Detected Ur Barbiturates Screen Not Detected Ur Phencyclidine Scrn Not Detected Ur Amphetamines Screen Not Detected U Benzodiazepines Scrn Not Detected Urine Cocaine Screen Not Detected U Marijuana (THC) Screen Not Detected 11/08/24 11/09/24 11/09/24 19:46 06:58 10:23 MCV MCH MCHC RDW Plt Count MPV Absolute Nucleated RBC Nucleated RBC % (auto) Anion Gap 11 L Estim Creat Clear Calc 22.9 Estimated GFR 16 POC Glucose 222 H 192 H Random Glucose 135 H Calcium 8.4 D Urine Color Urine Appearance Urine pH Ur Specific [place] Urine Protein Urine Glucose (UA) Urine Ketones Urine Blood Urine Nitrite Ur Leukocyte Esterase Urine RBC Urine WBC Ur Squamous Epith Cells Urine Bacteria Hyaline Casts Random Vancomycin Urine Opiates Screen Ur Buprenorphine Scrn Ur Oxycodone Screen Urine Methadone Screen Urine Fentanyl Screen Ur Barbiturates Screen Ur Phencyclidine Scrn Ur Amphetamines Screen U Benzodiazepines Scrn Urine Cocaine Screen U Marijuana (THC) Screen 11/09/24 11/09/24 11/09/24 10:24 10:54 16:07 MCV 87.9 MCH 26.9 L MCHC 30.6 L RDW 16.0 Plt Count 353 MPV 10.0 Absolute Nucleated RBC 0.000 Nucleated RBC % (auto) 0.0 Anion Gap Estim Creat Clear Calc Estimated GFR POC Glucose 128 H 283 H Random Glucose Calcium Urine Color Urine Appearance Urine pH Ur Specific [place] Urine Protein Urine Glucose (UA) Urine Ketones Urine Blood Urine Nitrite Ur Leukocyte Esterase Urine RBC Urine WBC Ur Squamous Epith Cells Urine Bacteria Hyaline Casts Random Vancomycin Urine Opiates Screen Ur Buprenorphine Scrn Ur Oxycodone Screen Urine Methadone Screen Urine Fentanyl Screen Ur Barbiturates Screen Ur Phencyclidine Scrn Ur Amphetamines Screen U Benzodiazepines Scrn Urine Cocaine Screen U Marijuana (THC) Screen Microbiology Microbiology Results: Microbiology 11/08/24 Unknown Urine Culture - Preliminary Urine clean catch - Clean Catch Midstream Culture in progress. 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 -wound culture growing Klebsiel and Proteus--sensitive to ceftriaxone -Continue Vancomyin per prior MRSA bacteremia, end date November 17 continue Ceftriaxone, starting 11/08,added levoflox 11/09/23 ( wound culture also show pseudomonas.) Id eval-noted -d/w iD also wound culture recomended to add levoflox. ESRD--HD MWF (Nephrology following) Paroxysmal atrial flutter. Continue amiodarone, metoprolol and Eliquis HypOtension--required vasopressors, continue Midodrine and hold diuretic if BP ok, ok to continue metoprolol Elevated troponin, chronic. No chest pain. Likely secondary to end-stage renal disease. Acute on chronic anemia--transfused 1 unit on 11/06,added another prbc , repeat cbc. denies any gross bleeding History of drug abuse. Continue Suboxone. Addiction med consult. Pressure ulcer, nursing wound protocol -surgery consult noted- difficult constellation of skin wounds in an area not amenable to debridement, best treated with local wound care. wound care: Turn and Reposition every 2 hours and as needed for patient comfort.? Use pillows or wedges to support off loading positions. Off Load all bony prominences with use of pillows and heel boots if needed.? Apply Preventative foams where needed. ? Monitor for incontinence and moisture control, use barrier creams when needed for prevention and treatment. Recommend Condom cath for urinary containment as patient is incontinent of urine at times. Provide adequate and supplemental nutrition.? Continue Pulsate from Agility bed. Maintain blood glucose levels per Providers order. Scrotum and Sacrum and Coccyx Buttock- Off Load Pressure with Q2hr turns and use of pillows. Cleanse with PH balance spray or wipes, pat dry. ?Apply thin layer of Triad to wound bed - only pat and dab no scrub and rub when soiling occurs. Reapply thin layer PRN after each episode of incontinence. Do not use foam dressing at this time. Left Heel, Right Hip, Right Thigh and bilateral groin - Cleanse with Stacie [place] and NS moist gauze, pat dry. Apply Triad to periwound, apply thick layer of Santyl to entire wound bed, cover with gauze, ABD dressing, change Daily. Mid Back - Gently cleanse with NS moist gauuze, pat dry. Apply skin prep allow to dry. Cover wound bed with thin single layer of xeroform and ABD pad. Change daily. Type 2 diabetes mellitus, hypoglycemia this mornng -BG checks before meals at bedtime. -Insulin sliding scale and Lantus. Diabetic diet Hyperlipidemia. Continue atorvastatin. Right BKA. no issues DVT prophylaxis: Eliquis Pt eval Need for inpt: Septic shock on Iv Abx, wound care , pt eval ,anemia . Quality Stroke Does the patient have a stroke diagnosis?: No VTE Prior VTE?: No VTE Risk Level:: Medical - moderate - high VTE Device Contraindication: Treatment Not Indicated VTE Drug Contraindication: N/A - Med Ordered
[2024-11-09] MEDS: levoFLOXacin/D5W 750 MG/150 ML PIGGYBACK 100 MG IV (17:09)
--- NOTE | 2024-11-09 18:25 | PC.NURSE ---
Addendum entered by Char Washington RN 11/09/24 18:33: per Dr Covington - this is correct, discussed with him Original Note: Blood bank called and stated blood is ready - per Dr Covington according to blood bank - he wants blood to be given tomorrow in or after dialysis so hold for evening - tigertext to Dr covington to confirm, awaiting response
[2024-11-09 19:10] VITALS: BP 110/54; PULSE 76; RESP 20; TEMP 37.2; O2SAT 100
--- NOTE | 2024-11-09 19:24 | P.PNNP_ITS ---
Subjective Subjective Date of Service: 11/09/24 Interval history: Events noted. All recent data reviewed. Due HD tomorrow Physical Exam 2 Vital Signs: Vital Signs: Last Vital Signs Temp 99.0 F 11/09/24 19:10 Pulse 76 11/09/24 19:10 Resp 20 11/09/24 19:10 BP 110/54 L 11/09/24 19:10 Pulse Ox 100 11/09/24 19:10 O2 Del Method Nasal Cannula 11/09/24 19:10 O2 Flow Rate 2 11/09/24 19:10 Oxygen Flow Rate 4 11/05/24 04:40 BMI result Body Mass Index 27.1 Const: General: no acute distress Orientation/consciousness: patient oriented x3 Eyes: EOM: EOMs intact bilaterally Resp: Auscultation: diminished lung sounds Cardio: Rate: regular rate GI: Palpation (GI): Soft to palpation Neuro: General: patient oriented x3 Extrem: Other: BKA Objective Data Labs 11/09/24 10:24 11/09/24 10:23 Labs: Laboratory Results - last 24 hr 11/08/24 11/08/24 11/09/24 19:01 19:46 06:58 WBC RBC Hgb Hct MCV MCH MCHC RDW Plt Count MPV Absolute Nucleated RBC Nucleated RBC % (auto) Sodium Potassium Chloride Carbon Dioxide Anion Gap BUN Creatinine Estim Creat Clear Calc Estimated GFR POC Glucose 222 H 192 H Random Glucose Calcium Random Vancomycin 11.2 L Blood Type Antibody Screen Crossmatch 11/09/24 11/09/24 11/09/24 10:23 10:24 10:54 WBC 19.8 H RBC 2.64 L Hgb 7.1 L Hct 23.2 L MCV 87.9 MCH 26.9 L MCHC 30.6 L RDW 16.0 Plt Count 353 MPV 10.0 Absolute Nucleated RBC 0.000 Nucleated RBC % (auto) 0.0 Sodium 133 L Potassium 3.5 Chloride 103 Carbon Dioxide 23 Anion Gap 11 L BUN 31 H Creatinine 4.02 H* Estim Creat Clear Calc 22.9 Estimated GFR 16 POC Glucose 128 H Random Glucose 135 H Calcium 8.4 D Random Vancomycin Blood Type Antibody Screen Crossmatch 11/09/24 11/09/24 16:07 16:40 WBC RBC Hgb Hct MCV MCH MCHC RDW Plt Count MPV Absolute Nucleated RBC Nucleated RBC % (auto) Sodium Potassium Chloride Carbon Dioxide Anion Gap BUN Creatinine Estim Creat Clear Calc Estimated GFR POC Glucose 283 H Random Glucose Calcium Random Vancomycin Blood Type O Positive Antibody Screen NEGATIVE Crossmatch See Detail Microbiology Microbiology Results: Microbiology 11/08/24 Unknown Urine clean catch - Clean Catch Midstream Urine Culture - Preliminary Culture in progress. 11/05/24 11:35 Groin Gram Stain - Final 11/05/24 11:35 Groin Routine Culture - Final Klebsiella pneumoniae Proteus mirabilis Pseudomonas aeruginosa 11/05/24 21:38 Blood - Venous Blood Culture - Preliminary No growth after 48 hours. 11/05/24 21:30 Blood - Venous Blood Culture - Preliminary No growth after 48 hours. 11/05/24 04:49 Blood - Venous Blood Culture - Preliminary No growth after 48 hours. 11/05/24 04:26 Blood - Venous Blood Culture - Preliminary No growth after 48 hours. Procedures Date of Service Date of Service: 11/09/24 Assessment & Plan Assessment and plan (1) ESRD on dialysis: Status: Acute (2) Anemia in chronic kidney disease (CKD): Status: Acute Plan Usually gets HD on MWF ( [facility]) Next HD tomorrow; Continued vol optimization on HD Vancomycin post HD; Antibiotics as guided by ID [place]rit [id number] U MWF; PRBC as needed Renal Diet; Phos binder with meals; Shall F/U Progress Note: Quality Stroke Does the patient have a stroke diagnosis?: No
[2024-11-09] MEDS: Atorvastatin Calcium 40 MG TABLET PO (20:18)
[2024-11-09 20:32] LABS: Glucose, Whole Blood 233 mg/dL (60-115)
[2024-11-10] VITALS (12 sets, daily range): BP systolic 98–121; BP diastolic 54–65; PULSE 71–84; RESP 18–20; TEMP 36.5–38; O2SAT 98–100
[2024-11-10] MEDS: metroNIDAZOLE/NS 500 MG/100 ML PIGGYBACK 100 MG IV ×3 (02:53→20:34)
[2024-11-10] MEDS: oxyCODONE HCl Immed Release 5 MG TABLET PO ×4 (04:59→20:49)
[2024-11-10] MEDS: Omeprazole 20 MG CAPSULE.DR PO (04:59)
[2024-11-10 06:20] LABS: CDiff Gene PCR NEGATIVE (Negative)
[2024-11-10 06:53] LABS: Glucose, Whole Blood 122 mg/dL (60-115)
[2024-11-10 07:59] LABS: Hematocrit 22.1 % (42.0-52.0); Mean Corpuscular HGB Conc 30.3 g/dl (31.0-36.0); Mean Corpuscular Hemoglobin 26.4 pg (27.0-33.0); Mean Platelet Volume 10.3 fL (9.4-12.4); Platelet Count 373 X10*3/uL (160-400); Red Blood Count 2.54 X10*6/uL (4.60-5.80)
[2024-11-10 08:12] LABS: Hemoglobin 6.7 g/dl (14.0-18.0)
[2024-11-10 08:28] LABS: Anion Gap 12 (12-20); Blood Urea Nitrogen 41 mg/dL (9-16); Calcium 8.2 mg/dL (8.4-10.2); Carbon Dioxide 22 mmol/L (22-29); Chloride 102 mmol/L (96-108); Creatinine Clr Calc Pharmacy 19.6; Estimated Glomerular Filt Rate 13; Glucose Random 138 mg/dL (60-115); Iron 19 mcg/dL (45-160); Percent Iron Saturation 21 % (15-50); Potassium 3.8 mmol/L (3.3-5.1); Sodium 132 mmol/L (135-145); Total Iron Binding Capacity 92 mcg/dL (228-428); Unsaturated Iron Binding 73 ug/dL
[2024-11-10] MEDS: 0.9 % Sodium Chloride Flush 3 ML SYRINGE IVFLUSH ×2 (08:34→20:34)
[2024-11-10 08:36] LABS: Ferritin 333 ng/mL (20-250)
[2024-11-10 08:53] LABS: Folate 6.3 ng/mL (> or = 4.0); Vitamin B12 276 pg/mL (200-900)
[2024-11-10] MEDS: Midodrine HCl 5 MG TABLET PO (09:26)
[2024-11-10] MEDS: calcitrioL 0.25 MCG CAPSULE 0.5 MCG PO (09:26)
[2024-11-10] MEDS: Multivitamin TABLET 1 TAB PO (09:27)
[2024-11-10] MEDS: Torsemide 20 MG TABLET 80 MG PO (09:27)
[2024-11-10] MEDS: Metoprolol Succinate ER 50 MG TAB.ER.24H PO (09:27)
[2024-11-10] MEDS: Amiodarone HCL 200 MG TABLET PO (09:27)
[2024-11-10] MEDS: Calcium Acetate 667 MG CAPSULE 1334 MG PO (09:27)
[2024-11-10] MEDS: Buprenorphine/Naloxone 8/2 mg FILM 1 FILM SUBLINGUAL ×3 (09:28→20:34)
[2024-11-10] MEDS: Apixaban 5 MG TABLET PO ×2 (09:28→20:33)
[2024-11-10] MEDS: Insulin Glargine,Hum.rec.anlog 100 UNIT/ML 10 ML VIAL 10 UNIT SUBCUT (09:28)
[2024-11-10 10:58] LABS: Glucose, Whole Blood 138 mg/dL (60-115)
--- NOTE | 2024-11-10 12:05 | MHC.CLN ---
F/U PT WITH INCREASED NUTRITION NEEDS R/T PRESSURE INJURY PO INTAKE GOOD CONSISTENTLY 75% DIET RX: 2000DM 2GM NA -APPROPRIATE PT RECEIVING ENSURE MAX BID TO PROMOTE WOUND HEALING SUPP PROVIDES 300KCALS, 60G PROTEIN MONITOR PO INTAKE AND ENCOURAGE SUPPLEMENTS
--- NOTE | 2024-11-10 12:24 | HO.WOUND ---
Wound Consult: Follow up Today wounds were assessed and re-dressed with current topical recommendations in place. Of note there is some slight improvement in the groin erythema. Extreme pain still remains but erythema has small improvement to periwound. No new topical orders needed at this time. Will continue to monitor. Direct care nurse will reach out to provider regarding pain control Patient did not tolerate this dressing change well, significant pain reported bringing patient to tears. Previous assessment details: 44yr old Male admitted to [facility] on 11/05/24- See progress notes and H&P for detailed history.? Wound consult Follow up for Sacrococcygeal, Bilateral Groin, Right Thigh, Right Hip, Left Heel and Right Flank wounds POA.? See Chart for review of recent admission. Patient agreeable to assessment and photo documentation - he reports significant pain when cleansing. Mom present at bedside and patient provided permission to have mom stay - discussed with mom concerns for care at home - she reports she is unable to care for the patient at the current state. She reports the patient is often refusing to get cleaned and care provided. I informed the patient his refusal for care has a direct correlation to his wound progression and development. We again discussed allowing turns and repositions to aid in healing. TT with Dr. Araya today regarding concerns for wounds in various stages of healing and approach towards healing. He is in agreement with [facility]by for Enzymatic debridement at this time since he is not a candidate for bedside or surgical debridement. TT to Dr. Covington with concerns for care at home and concerns for various wounds - he reports he will follow up with case mgt for care options. Bilateral Groin 11/08/24 Right Groin Right Inferior site - stable black dry firm eschar - 4.5cm x2cm x 0.2cmPaint with Betadine and keep dry. Left Groin Etiology: ?MASD (Moisture Associated Skin Damage) Left Groin 3cm x 3cm x 0.4cm Right Groin 10.5cm x 6.5cm x 0.3cm Wound Bed: Full thickness tissue injury - scattered adherent yellow slough red pink erythema and with moist desquamation noted Drainage / Odor: mild Odor noted flowers yellow drainage noted Edges: ? irregular Corazon wound: ?red erythema and firm induration noted - MASD no fluctuance noted Goals of Treatment: ? Kiesha for enzymatic debridement switched from [employer] 11/08/24 11/09/24 (Slight improvement in periwound noted 24hr post Triad initiated - No new topical recommendations needed) Sacrococcygeal (Sacrum, Coccyx, and Buttock) 9cm x 6cm x 0.3cm Etiology: ?Unstagable Pressure injury -?Present on Admission Wound Bed: Full thickness tissue loss with adherent yellow white slough Drainage / Odor: yellow flowers - mild odor noted Edges: ? irregular Corazon wound: MASD and friction Pain: pain reported Goals of Treatment: ?Triad at this time - will talk with provider regarding Santyl for enzymatic debridement Do not use foam use as this may be trapping moisture to wound bed - recommend Triad and ABD pad for secondary dressing if needed. Of importance the patient and I had a sandra discussion regarding refusing care and interventions. Patient denies refusals but states cleansing and repositions hurt. We discussed the benefits of cleansing and turning and repositions and the consequences of wound worsening if refusals continue - he reports understanding and at this time reports he will be agreeable to repositions and cleansing after incontinence. The patient over night was switched to a Agility Pulsate bed which will benefit the patients skin and wounds. 11/08/24 11/09/24 Midline Back - Etiology unknown - Presentation not consistent with Deep Tissue Injury - Dark purple maroon purpura noted throughout his body. 8cm x 4cm x 0.1cm Recommend protect from friction with xeroform and ABD dry dressing. Epidermal lifting noted suspect will open. 11/09/24 Left Hip - Etiology unknown - Presentation not consistent with Deep Tissue Injury - Dark purple maroon purpura noted throughout his body. 1cm x 1cm Recommend protect from friction with foam dressing and or skin prep. 11/08/24 11/09/24 Left Heel Etiology: ?Unstagable Pressure injury -?Present on Admission 1cm x 1.2cm x 0.3cm Wound Bed: Full thickness tissue loss adherent necrotic tissue black brown and flowers Drainage / Odor: yellow flowers - mild odor noted Edges: ? irregular macerated and thickly callused Corazon wound: maroon nonblanchable tissue Pain: pain reported Goals of Treatment: Switched from?Triad to Santyl for enzymatic debridement Right Anterior Thigh - Etiology unknown - Location not consistent with Pressure - Adherent necrotic leather like tissue no induration no fluctance noted. 10cm x 4cm x 0.3cm Switched from Triad to Santyl for enzymatic debridement. Right Hip - Unstageable Pressure injury - Adherent necrotic leatherlife tissue no induration slight fluctance noted. 11.5cm x 8cm x 0.2cm Switched from Triad to Santyl for enzymatic debridement. Periwound noted for irregular purpura not consistent with DTI. Right Flank sites with adherent yellow slought noted 1cm x 2cm x 0.2cm - Triad and foam dressing applied. Agility Pulsate bed in use. Recommendations: 1. Turn and Reposition every 2 hours and as needed for patient comfort.? Use pillows or wedges to support off loading positions. 2. Off Load all bony prominences with use of pillows and heel boots if needed.? Apply Preventative foams where needed. ? 3. Monitor for incontinence and moisture control, use barrier creams when needed for prevention and treatment. Recommend Condom cath for urinary containment as patient is incontinent of urine at times. 4. Provide adequate and supplemental nutrition.? 5. Continue Pulsate from Agility bed. 6. Maintain blood glucose levels per Providers order. 7. Scrotum and Sacrum and Coccyx Buttock- Off Load Pressure with Q2hr turns and use of pillows. Cleanse with PH balance spray or wipes, pat dry. ?Apply thin layer of Triad to wound bed - only pat and dab no scrub and rub when soiling occurs. Reapply thin layer PRN after each episode of incontinence. Do not use foam dressing at this time. 8. Left Heel, Right Hip, Right Thigh and bilateral groin - Cleanse with Stacie [place] and NS moist gauze, pat dry. Apply Triad to periwound, apply thick layer of Santyl to entire wound bed, cover with gauze, ABD dressing, change Daily. 9. Mid Back - Gently cleanse with NS moist gauuze, pat dry. Apply skin prep allow to dry. Cover wound bed with thin single layer of xeroform and ABD pad. Change daily. Recommend follow up out patient Wound Clinic at [address] [place] [id number] and to call for an appointment at time of discharge. [phone].? Re-consult wound care Nurse for wound deterioration or wound changes.
[2024-11-10] MEDS: Morphine Sulfate 4 MG/ML CARTRIDGE IVPUSH (12:48)
[2024-11-10] MEDS: cefTRIAXone sodium 1 GM VIAL IVPUSH (12:48)
[2024-11-10] MEDS: Collagenase Clostridium Hist. 30 GM TUBE 1 APPL TOPICAL ×2 (12:51→20:35)
--- NOTE | 2024-11-10 13:05 | P.PNNP_ITS ---
Subjective Subjective Date of Service: 11/10/24 Interval history: Events noted. All recent data reviewed. Due HD today Physical Exam 2 Vital Signs: Vital Signs: Last Vital Signs Temp 98.2 F 11/10/24 11:00 Pulse 79 11/10/24 11:00 Resp 20 11/10/24 11:00 BP 121/65 11/10/24 11:00 Pulse Ox 99 11/10/24 11:00 O2 Del Method Nasal Cannula 11/10/24 11:00 O2 Flow Rate 3 11/10/24 11:00 Oxygen Flow Rate 4 11/05/24 04:40 BMI result Body Mass Index 27.1 Const: General: comfortable and no acute distress O rientation/consciousness: patient oriented x3 HEENT: Head: Yes normocephalic Mouth: Normal oral and palatal mucosa present Eyes: EOM: EOMs intact bilaterally Neck: Neck: Yes supple Resp: Auscultation: clear to auscultation bilaterally Cardio: Jugular venous distension: no JVD Rate: regular rate GI: Palpation (GI): Soft to palpation Auscultation: normal bowel sounds Neuro: General: patient oriented x3 Objective Data Labs 11/10/24 07:37 11/10/24 07:37 Labs: Laboratory Results - last 24 hr 11/09/24 11/09/24 11/09/24 16:07 16:40 20:29 WBC RBC Hgb Hct MCV MCH MCHC RDW Plt Count MPV Absolute Nucleated RBC Nucleated RBC % (auto) Sodium Potassium Chloride Carbon Dioxide Anion Gap BUN Creatinine Estim Creat Clear Calc Estimated GFR POC Glucose 283 H 233 H Random Glucose Calcium Iron TIBC % Saturation Unsat Iron Binding Ferritin Vitamin B12 Folate C. difficile Tox B Gene Blood Type O Positive Antibody Screen NEGATIVE Crossmatch See Detail 11/10/24 11/10/24 11/10/24 05:13 06:49 07:37 WBC 19.0 H RBC 2.54 L Hgb 6.7 L* Hct 22.1 L MCV 87.0 MCH 26.4 L MCHC 30.3 L RDW 16.0 Plt Count 373 MPV 10.3 Absolute Nucleated RBC 0.000 Nucleated RBC % (auto) 0.0 Sodium 132 L Potassium 3.8 Chloride 102 Carbon Dioxide 22 Anion Gap 12 BUN 41 H Creatinine 4.70 H* Estim Creat Clear Calc 19.6 Estimated GFR 13 POC Glucose 122 H Random Glucose 138 H Calcium 8.2 L Iron 19 L TIBC 92 L % Saturation 21 Unsat Iron Binding 73 Ferritin 333 H Vitamin B12 276 Folate 6.3 C. difficile Tox B Gene NEGATIVE Blood Type Antibody Screen Crossmatch 11/10/24 10:51 WBC RBC Hgb Hct MCV MCH MCHC RDW Plt Count MPV Absolute Nucleated RBC Nucleated RBC % (auto) Sodium Potassium Chloride Carbon Dioxide Anion Gap BUN Creatinine Estim Creat Clear Calc Estimated GFR POC Glucose 138 H Random Glucose Calcium Iron TIBC % Saturation Unsat Iron Binding Ferritin Vitamin B12 Folate C. difficile Tox B Gene Blood Type Antibody Screen Crossmatch Microbiology Microbiology Results: Microbiology 11/08/24 Unknown Urine clean catch - Clean Catch Midstream Urine Culture - Final 11/05/24 04:49 Blood - Venous Blood Culture - Final No growth after 5 days. 11/05/24 04:26 Blood - Venous Blood Culture - Final No growth after 5 days. 11/05/24 11:35 Groin Gram Stain - Final 11/05/24 11:35 Groin Routine Culture - Final Klebsiella pneumoniae Proteus mirabilis Pseudomonas aeruginosa 11/05/24 21:38 Blood - Venous Blood Culture - Preliminary No growth after 48 hours. 11/05/24 21:30 Blood - Venous Blood Culture - Preliminary No growth after 48 hours. Procedures Date of Service Date of Service: 11/10/24 Assessment & Plan Assessment and plan (1) Anemia in chronic kidney disease (CKD): Status: Acute (2) ESRD on dialysis: Status: Acute Plan Usually gets HD on MWF ( [facility]) Next HD this morning; Continued vol optimization on HD Vancomycin post HD; Antibiotics as guided by ID Procrit [id number] U MWF; PRBC today Renal Diet; Phos binder with meals; Shall F/U Progress Note: Quality Stroke Does the patient have a stroke diagnosis?: No
--- NOTE | 2024-11-10 14:21 | MHC.CM.PN ---
EMR reviewed and per MD rounds, pt is not medically cleared for discharge due to management of anemia, and septic shock, pt receiving IV antibiotics. PT evaluated pt and has recommended STR. This CM met with pt to discuss discharge plan and STR options, and pt is not interested in going to STR if its going to be far away, as its difficult for his mother to go too far. Pt is agreeable with going home at discharge with new VNA services.
--- NOTE | 2024-11-10 15:27 | P.PNIM_ITS ---
Subjective Subjective Date of Service: 11/10/24 Interval History: wound infection Review of Systems blood culture so negative, wound culture Klebsiela and proteus--sensitive to ceftriaxone, pseudomonas senstive to cipro Physical Exam 2 Vital Signs: Vital Signs: Last Vital Signs Temp 98.4 F 11/10/24 13:10 Pulse 78 11/10/24 13:10 Resp 18 11/10/24 13:10 BP 112/58 L 11/10/24 13:10 Pulse Ox 99 11/10/24 11:00 O2 Del Method Nasal Cannula 11/10/24 11:00 O2 Flow Rate 3 11/10/24 11:00 Oxygen Flow Rate 4 11/05/24 04:40 BMI result Body Mass Index 27.1 General: AO X 3, no acute distress Resp: CTA bilateral CVS: S1,S2,RRR GI: +BS, NT, no distention Skin: see h and p pictures Neuro: motor grossly intact Psych: appropriate affect Objective Data Active Medications Acetaminophen (Acetaminophen 325 Mg Tablet) 650 mg PO Q6H PRN PRN Reason: Pain, Mild 1-3,fever,headache Last Admin: 11/08/24 17:58 Dose: 650 mg Documented By: ROSCOE Al Hydroxide/Mg Hydroxide (Magnesium Hydrox/Alum Hydrox 30 Ml Oral.Susp) 30 ml PO Q4H PRN PRN Reason: Heartburn Albuterol Sulfate (Albuterol Sulfate 90 Mcg 8 Gm Inhaler) 1 puff INHALE RQ6H PRN PRN Reason: Shortness of Breath/Wheezing Last Admin: 11/08/24 22:58 Dose: 1 puff Documented By: NICOLAS Amiodarone HCl (Amiodarone Hcl 200 Mg Tablet) 200 mg PO DAILY [facility] Last Admin: 11/10/24 09:27 Dose: 200 mg Documented By: EKN Apixaban (Apixaban 5 Mg Tablet) 5 mg PO BID [facility] Last Admin: 11/10/24 09:28 Dose: 5 mg Documented By: KEN Atorvastatin Calcium (Atorvastatin Calcium 40 Mg Tablet) 40 mg PO BEDTIME [facility] Last Admin: 11/09/24 20:18 Dose: 40 mg Documented By: HU-PRAVEENA Buprenorphine/Naloxone (Buprenorphine/Naloxone 8/2 Mg Film) 1 film SUBLINGUAL TID [facility] Last Admin: 11/10/24 09:28 Dose: 1 film Documented By: KEN Calcitriol (Calcitriol 0.25 Mcg Capsule) 0.5 mcg PO DAILY [facility] Last Admin: 11/10/24 09:26 Dose: 0.5 mcg Documented By: KEN Calcium Acetate (Calcium Acetate 667 Mg Capsule) 1,334 mg PO TIDWM [facility] Last Admin: 11/10/24 12:50 Dose: Not Given Documented By: KEN Non-Admin Reason: pt not eating Calcium Carbonate (Calcium Carbonate 750 Mg Tab.Chew) 750 mg PO Q4H PRN PRN Reason: Heartburn Ceftriaxone Sodium (Ceftriaxone Sodium 1 Gm Vial) 1 gm IVPUSH Q24H [facility] Last Admin: 11/10/24 12:48 Dose: 1 gm Documented By: KEN Collagenase (Collagenase Clostridium Hist. 30 Gm Tube) 1 appl TOPICAL BID [facility]; Protocol Last Admin: 11/10/24 12:51 Dose: 1 appl Documented By: KEN Glucose (Glucose Gel 15 Gm Gel..Gram.) 15 gm PO Q15M PRN; Protocol PRN Reason: per Hypoglycemia Standing Ord. Dextrose (D10) 250 mls @ 750 mls/hr IV Q15M PRN; Protocol PRN Reason: per Hypoglycemia Standing Ord. Vancomycin HCl 500 mg/ Sodium (Chloride) 110 mls @ 110 mls/hr IV [id number]@1800 [facility] Metronidazole (Flagyl) 500 mg in 100 mls @ 100 mls/hr IV Q8H [facility] Last Infusion: 11/10/24 12:40 Dose: Infused Documented By: KEN Insulin Glargine (Insulin Glargine,Hum.Rec.Anlog 100 Unit/Ml 10 Ml Vial) 10 unit SUBCUT DAILY [facility] Last Admin: 11/10/24 09:28 Dose: 10 unit Documented By: KEN Insulin Human Lispro (Insulin Lispro 100 Unit/Ml 3 Ml Vial) 0 unit SUBCUT QIDACHS [facility]; Protocol Last Admin: 11/10/24 12:40 Dose: Not Given Documented By: KEN Non-Admin Reason: No Insulin Coverage Magnesium Hydroxide (Milk Of Magnesia 30 Ml Oral.Susp) 30 ml PO DAILY PRN PRN Reason: Constipation Melatonin (Melatonin 3 Mg Tablet) 6 mg PO BEDTIME PRN PRN Reason: Insomnia Metoprolol Succinate (Metoprolol Succinate Er 50 Mg Tab.Er.24h) 50 mg PO DAILY [facility]; Protocol Last Admin: 11/10/24 09:27 Dose: 50 mg Documented By: KEN Midodrine (Midodrine Hcl 5 Mg Tablet) 5 mg PO BIDWM [facility] Last Admin: 11/10/24 09:26 Dose: 5 mg Documented By: KEN Multivitamins/Vitamin C (Multivitamin Tablet) 1 tab PO DAILY [facility] Last Admin: 11/10/24 09:27 Dose: 1 tab Documented By: KEN Omeprazole (Omeprazole 20 Mg Capsule.Dr) 20 mg PO DAILY@0630 [facility] Last Admin: 11/10/24 04:59 Dose: 20 mg Documented By: HU-PRAVEENA Ondansetron HCl (Ondansetron Hcl 4 Mg/2 Ml Vial) 4 mg IVPUSH Q8H PRN PRN Reason: Nausea and Vomiting Oxycodone HCl (Oxycodone Hcl Immed Release 5 Mg Tablet) 5 mg PO Q4H PRN PRN Reason: Pain, Severe (Pain Scale 7-10) Last Admin: 11/10/24 13:59 Dose: 5 mg Documented By: KEN Pharmacy Consult (Consult Rx Vancomycin Dosing) 1 each MISCELLANE DAILY PRN PRN Reason: Consult order Polyethylene Glycol (Polyethylene Glycol 3350 17 Gm Powd.Pack) 17 gm PO DAILY PRN PRN Reason: Constipation Sodium Chloride (0.9 % Sodium Chloride Flush 3 Ml Syringe) 3 ml IVFLUSH QSHIFT [facility] Last Admin: 11/10/24 08:34 Dose: 3 ml Documented By: KEN Torsemide (Torsemide 20 Mg Tablet) 80 mg PO BIDWM [facility]; Protocol Last Admin: 11/10/24 09:27 Dose: 80 mg Documented By: KEN Labs 11/10/24 07:37 11/10/24 07:37 Labs: Laboratory Results - last 24 hr 11/09/24 11/09/24 11/09/24 16:07 16:40 20:29 MCV MCH MCHC RDW Plt Count MPV Absolute Nucleated RBC Nucleated RBC % (auto) Anion Gap Estim Creat Clear Calc Estimated GFR POC Glucose 283 H 233 H Random Glucose Calcium Iron TIBC % Saturation Unsat Iron Binding Ferritin Vitamin B12 Folate C. difficile Tox B Gene Blood Type O Positive Antibody Screen NEGATIVE Crossmatch See Detail 11/10/24 11/10/24 11/10/24 05:13 06:49 07:37 MCV 87.0 MCH 26.4 L MCHC 30.3 L RDW 16.0 Plt Count 373 MPV 10.3 Absolute Nucleated RBC 0.000 Nucleated RBC % (auto) 0.0 Anion Gap 12 Estim Creat Clear Calc 19.6 Estimated GFR 13 POC Glucose 122 H Random Glucose 138 H Calcium 8.2 L Iron 19 L TIBC 92 L % Saturation 21 Unsat Iron Binding 73 Ferritin 333 H Vitamin B12 276 Folate 6.3 C. difficile Tox B Gene NEGATIVE Blood Type Antibody Screen Crossmatch 11/10/24 10:51 MCV MCH MCHC RDW Plt Count MPV Absolute Nucleated RBC Nucleated RBC % (auto) Anion Gap Estim Creat Clear Calc Estimated GFR POC Glucose 138 H Random Glucose Calcium Iron TIBC % Saturation Unsat Iron Binding Ferritin Vitamin B12 Folate C. difficile Tox B Gene Blood Type Antibody Screen Crossmatch Microbiology Microbiology Results: Microbiology 11/08/24 Unknown Urine Culture - Final Urine clean catch - Clean Catch Midstream 11/05/24 04:49 Blood Culture - Final Blood - Venous No growth after 5 days. 11/05/24 04:26 Blood Culture - Final Blood - Venous No growth after 5 days. 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 -wound culture growing Klebsiel and Proteus--sensitive to ceftriaxone -Continue Vancomyin per prior MRSA bacteremia, end date November 17 continue Ceftriaxone/flagyl starting 11/08,added levoflox 11/09/23 ( wound culture also show pseudomonas.) Id eval-noted -d/w iD also wound culture recomended to add levoflox. ESRD--HD MWF (Nephrology following) Paroxysmal atrial flutter. Continue amiodarone, metoprolol and Eliquis HypOtension--required vasopressors, continue Midodrine and hold diuretic if BP ok, ok to continue metoprolol Elevated troponin, chronic. No chest pain. Likely secondary to end-stage renal disease. Acute on chronic anemia--transfused 1 unit on 11/06,2 prbc . iron levels low tibc,iron sats ,ferritin, folate and b12 seems fine. denies any gross bleeding or melena as per patient. moniter cbc History of drug abuse. Continue Suboxone. Addiction med consult. Pressure ulcer, nursing wound protocol -surgery consult noted- difficult constellation of skin wounds in an area not amenable to debridement, best treated with local wound care. wound care: Turn and Reposition every 2 hours and as needed for patient comfort.? Use pillows or wedges to support off loading positions. Off Load all bony prominences with use of pillows and heel boots if needed.? Apply Preventative foams where needed. ? Monitor for incontinence and moisture control, use barrier creams when needed for prevention and treatment. Recommend Condom cath for urinary containment as patient is incontinent of urine at times. Provide adequate and supplemental nutrition.? Continue Pulsate from Agility bed. Maintain blood glucose levels per Providers order. Scrotum and Sacrum and Coccyx Buttock- Off Load Pressure with Q2hr turns and use of pillows. Cleanse with PH balance spray or wipes, pat dry. ?Apply thin layer of Triad to wound bed - only pat and dab no scrub and rub when soiling occurs. Reapply thin layer PRN after each episode of incontinence. Do not use foam dressing at this time. Left Heel, Right Hip, Right Thigh and bilateral groin - Cleanse with Stacie [place] and NS moist gauze, pat dry. Apply Triad to periwound, apply thick layer of Santyl to entire wound bed, cover with gauze, ABD dressing, change Daily. Mid Back - Gently cleanse with NS moist gauuze, pat dry. Apply skin prep allow to dry. Cover wound bed with thin single layer of xeroform and ABD pad. Change daily. Type 2 diabetes mellitus, hypoglycemia this mornng -BG checks before meals at bedtime. -Insulin sliding scale and Lantus. Diabetic diet Hyperlipidemia. Continue atorvastatin. Right BKA. no issues DVT prophylaxis: Eliquis Pt eval Need for inpt: Septic shock on Iv Abx, wound care , pt eval ,anemia . Quality Stroke Does the patient have a stroke diagnosis?: No VTE Prior VTE?: No VTE Risk Level:: Medical - moderate - high VTE Device Contraindication: Treatment Not Indicated VTE Drug Contraindication: N/A - Med Ordered
[2024-11-10 16:50] LABS: Glucose, Whole Blood 118 mg/dL (60-115)
[2024-11-10 19:36] LABS: Hematocrit 27.4 % (42.0-52.0); Hemoglobin 8.7 g/dl (14.0-18.0); Vancomycin Random 10.5 mcg/mL (15-20)
[2024-11-10] MEDS: Atorvastatin Calcium 40 MG TABLET PO (20:33)
[2024-11-10] MEDS: levoFLOXacin 500 MG TABLET PO (20:34)
[2024-11-10] MEDS: vancomycin HCL 500 MG in 0.9 % Sodium Chloride 100 ML 110 MG IV (20:49)
[2024-11-10 21:55] LABS: Glucose, Whole Blood 196 mg/dL (60-115)
[2024-11-10] MEDS: Insulin Lispro 100 UNIT/ML 3 ML VIAL SUBCUT (22:10)
[2024-11-11] VITALS (15 sets, daily range): BP systolic 97–122; BP diastolic 51–64; PULSE 71–84; RESP 16–20; TEMP 36.1–37.6; O2SAT 96–100
--- NOTE | 2024-11-11 00:35 | PC.NURSE ---
pt remained in dialysis until around 1999, flagy given late
[2024-11-11] MEDS: metroNIDAZOLE/NS 500 MG/100 ML PIGGYBACK 100 MG IV ×3 (03:10→17:09)
[2024-11-11] MEDS: Omeprazole 20 MG CAPSULE.DR PO (05:34)
[2024-11-11 07:00] LABS: Hematocrit 27.8 % (42.0-52.0); Hemoglobin 8.5 g/dl (14.0-18.0); Mean Corpuscular HGB Conc 30.6 g/dl (31.0-36.0); Mean Corpuscular Hemoglobin 26.4 pg (27.0-33.0); Mean Corpuscular Volume 86.3 fL (80.0-98.0); Mean Platelet Volume 10.5 fL (9.4-12.4); Platelet Count 365 X10*3/uL (160-400); Red Blood Count 3.22 X10*6/uL (4.60-5.80); Red Cell Distribution Width 15.8 % (11.0-16.0); White Blood Count 14.9 X10*3/uL (4.8-10.8)
[2024-11-11 07:28] LABS: Glucose, Whole Blood 102 mg/dL (60-115)
[2024-11-11] MEDS: Calcium Acetate 667 MG CAPSULE 1334 MG PO ×3 (08:49→17:11)
[2024-11-11] MEDS: Metoprolol Succinate ER 50 MG TAB.ER.24H PO (08:50)
[2024-11-11] MEDS: Insulin Glargine,Hum.rec.anlog 100 UNIT/ML 10 ML VIAL 10 UNIT SUBCUT (08:50)
[2024-11-11] MEDS: Amiodarone HCL 200 MG TABLET PO (08:50)
[2024-11-11] MEDS: Midodrine HCl 5 MG TABLET PO ×2 (08:50→17:12)
[2024-11-11] MEDS: Apixaban 5 MG TABLET PO ×2 (08:50→20:22)
[2024-11-11] MEDS: Multivitamin TABLET 1 TAB PO (08:50)
[2024-11-11] MEDS: 0.9 % Sodium Chloride Flush 3 ML SYRINGE IVFLUSH ×3 (08:51→20:24)
[2024-11-11] MEDS: calcitrioL 0.25 MCG CAPSULE 0.5 MCG PO (08:51)
[2024-11-11] MEDS: Buprenorphine/Naloxone 8/2 mg FILM 1 FILM SUBLINGUAL ×3 (08:51→20:21)
[2024-11-11] MEDS: Torsemide 20 MG TABLET 80 MG PO ×2 (08:51→17:09)
[2024-11-11] MEDS: oxyCODONE HCl Immed Release 5 MG TABLET PO ×3 (08:55→20:22)
[2024-11-11] MEDS: Morphine Sulfate 4 MG/ML CARTRIDGE IVPUSH (11:44)
[2024-11-11] MEDS: cefTRIAXone sodium 1 GM VIAL IVPUSH (11:44)
[2024-11-11] MEDS: Collagenase Clostridium Hist. 30 GM TUBE 1 APPL TOPICAL (11:44)
[2024-11-11 12:02] LABS: Glucose, Whole Blood 263 mg/dL (60-115)
[2024-11-11] MEDS: Insulin Lispro 100 UNIT/ML 3 ML VIAL SUBCUT ×3 (12:29→20:24)
--- NOTE | 2024-11-11 12:40 | HO.WOUND ---
Wound Consult: Follow up Today wounds were assessed and re-dressed with current topical recommendations in place. Of note there is some improvement in the adherent slough and eschar areas. No new photos or measurements taken today. Extreme pain still remains but erythema has small improvement to periwound. No new topical orders needed at this time. Will continue to monitor. Direct care nurse will reach out to provider regarding pain control in plans for d/c as patient has a difficult time with pain control during dressing changes. Patient did tolerate better today given he was medicated just prior to dressing changes with IV pain meds by the direct care nurse see MAR for details. There are 10 wounds/dressings in total this is difficult for the patient to tolerate all at once - discussed with direct care nurse to consider spreading out over day and lieutenant shift supervisor which would benefit patient due to pain control. Previous assessment details: 44yr old Male admitted to [facility] on 11/05/24- See progress notes and H&P for detailed history.? Wound consult Follow up for Sacrococcygeal, Bilateral Groin, Right Thigh, Right Hip, Left Heel and Right Flank wounds POA.? See Chart for review of recent admission. Patient agreeable to assessment and photo documentation - he reports significant pain when cleansing. Mom present at bedside and patient provided permission to have mom stay - discussed with mom concerns for care at home - she reports she is unable to care for the patient at the current state. She reports the patient is often refusing to get cleaned and care provided. I informed the patient his refusal for care has a direct correlation to his wound progression and development. We again discussed allowing turns and repositions to aid in healing. TT with Dr. Araya today regarding concerns for wounds in various stages of healing and approach towards healing. He is in agreement with [facility] for Enzymatic debridement at this time since he is not a candidate for bedside or surgical debridement. TT to Dr. Covington with concerns for care at home and concerns for various wounds - he reports he will follow up with case mgt for care options. Bilateral Groin 11/08/24 Right Groin 11/10/24 Right Inferior site - stable black dry firm eschar - 4.5cm x2cm x 0.2cmPaint with Betadine and keep dry. Left Groin 11/10/24 Etiology: ?MASD (Moisture Associated Skin Damage) Left Groin 3cm x 3cm x 0.4cm Right Groin 10.5cm x 6.5cm x 0.3cm Wound Bed: Full thickness tissue injury - scattered adherent yellow slough red pink erythema and with moist desquamation noted Drainage / Odor: mild Odor noted flowers yellow drainage noted Edges: ? irregular Corazon wound: ?red erythema and firm induration noted - MASD no fluctuance noted Goals of Treatment: ? Santly for enzymatic debridement switched from Durafiber AG 11/08/24 11/09/24 (Slight improvement in periwound noted 24hr post Triad initiated - No new topical recommendations needed) Sacrococcygeal (Sacrum, Coccyx, and Buttock) 9cm x 6cm x 0.3cm Etiology: ?Unstagable Pressure injury -?Present on Admission Wound Bed: Full thickness tissue loss with adherent yellow white slough Drainage / Odor: yellow flowers - mild odor noted Edges: ? irregular Corazon wound: MASD and friction Pain: pain reported Goals of Treatment: ?Triad at this time - will talk with provider regarding Santyl for enzymatic debridement Do not use foam use as this may be trapping moisture to wound bed - recommend Triad and ABD pad for secondary dressing if needed. Of importance the patient and I had a sandra discussion regarding refusing care and interventions. Patient denies refusals but states cleansing and repositions hurt. We discussed the benefits of cleansing and turning and repositions and the consequences of wound worsening if refusals continue - he reports understanding and at this time reports he will be agreeable to repositions and cleansing after incontinence. The patient over night was switched to a Agility Pulsate bed which will benefit the patients skin and wounds. 11/08/24 11/09/24 Midline Back - Etiology unknown - Presentation not consistent with Deep Tissue Injury - Dark purple maroon purpura noted throughout his body. 8cm x 4cm x 0.1cm Recommend protect from friction with xeroform and ABD dry dressing. Epidermal lifting noted suspect will open. 11/09/24 Left Hip - Etiology unknown - Presentation not consistent with Deep Tissue Injury - Dark purple maroon purpura noted throughout his body. 1cm x 1cm Recommend protect from friction with foam dressing and or skin prep. 11/08/24 11/09/24 Left Heel Etiology: ?Unstagable Pressure injury -?Present on Admission 1cm x 1.2cm x 0.3cm Wound Bed: Full thickness tissue loss adherent necrotic tissue black brown and flowers Drainage / Odor: yellow flowers - mild odor noted Edges: ? irregular macerated and thickly callused Corazon wound: maroon nonblanchable tissue Pain: pain reported Goals of Treatment: Switched from?Triad to Santyl for enzymatic debridement Right Anterior Thigh - Etiology unknown - Location not consistent with Pressure - Adherent necrotic leather like tissue no induration no fluctance noted. 10cm x 4cm x 0.3cm Switched from Triad to Santyl for enzymatic debridement. Right Hip - Unstageable Pressure injury - Adherent necrotic leatherlife tissue no induration slight fluctance noted. 11.5cm x 8cm x 0.2cm Switched from Triad to Santyl for enzymatic debridement. Periwound noted for irregular purpura not consistent with DTI. Right Flank sites with adherent yellow slought noted 1cm x 2cm x 0.2cm - Triad and foam dressing applied. Agility Pulsate bed in use. Recommendations: 1. Turn and Reposition every 2 hours and as needed for patient comfort.? Use pillows or wedges to support off loading positions. 2. Off Load all bony prominences with use of pillows and heel boots if needed.? Apply Preventative foams where needed. ? 3. Monitor for incontinence and moisture control, use barrier creams when needed for prevention and treatment. Recommend Condom cath for urinary containment as patient is incontinent of urine at times. 4. Provide adequate and supplemental nutrition.? 5. Continue Pulsate from Agility bed. 6. Maintain blood glucose levels per Providers order. 7. Scrotum and Sacrum and Coccyx Buttock- Off Load Pressure with Q2hr turns and use of pillows. Cleanse with PH balance spray or wipes, pat dry. ?Apply thin layer of Triad to wound bed - only pat and dab no scrub and rub when soiling occurs. Reapply thin layer PRN after each episode of incontinence. Do not use foam dressing at this time. 8. Left Heel, Right Hip, Right Thigh and bilateral groin - Cleanse with Stacie [place] and NS moist gauze, pat dry. Apply Triad to periwound, apply thick layer of Santyl to entire wound bed, cover with gauze, ABD dressing, change Daily. 9. Mid Back - Gently cleanse with NS moist gauuze, pat dry. Apply skin prep allow to dry. Cover wound bed with thin single layer of xeroform and ABD pad. Change daily. Recommend follow up out patient Wound Clinic at [address] [place] [id number] and to call for an appointment at time of discharge. [phone].? Re-consult wound care Nurse for wound deterioration or wound changes.
--- NOTE | 2024-11-11 12:51 | HO.SKINPHOTO ---
Location:Sacrococcygeal Category: Pressure Injury and MASD Stage: Length: Width: Depth: cm
--- NOTE | 2024-11-11 14:52 | P.PNIM_ITS ---
Subjective Subjective Date of Service: 11/11/24 Interval History: anemia Review of Systems blood culture so negative, wound culture Klebsiela and proteus--sensitive to ceftriaxone, pseudomonas senstive to cipro. Physical Exam 2 Vital Signs: Vital Signs: Last Vital Signs Temp 99.3 F 11/11/24 14:36 Pulse 78 11/11/24 14:36 Resp 18 11/11/24 14:36 BP 108/52 L 11/11/24 14:36 Pulse Ox 99 11/11/24 10:36 O2 Del Method Room Air 11/11/24 10:36 O2 Flow Rate 3 11/11/24 03:43 Oxygen Flow Rate 4 11/05/24 04:40 BMI result Body Mass Index 27.1 General: AO X 3, no acute distress Resp: CTA bilateral CVS: S1,S2,RRR GI: +BS, NT, no distention Skin: see h and p pictures Neuro: motor grossly intact Psych: appropriate affect Objective Data Active Medications Acetaminophen (Acetaminophen 325 Mg Tablet) 650 mg PO Q6H PRN PRN Reason: Pain, Mild 1-3,fever,headache Last Admin: 11/08/24 17:58 Dose: 650 mg Documented By: ROSCOE Al Hydroxide/Mg Hydroxide (Magnesium Hydrox/Alum Hydrox 30 Ml Oral.Susp) 30 ml PO Q4H PRN PRN Reason: Heartburn Albuterol Sulfate (Albuterol Sulfate 90 Mcg 8 Gm Inhaler) 1 puff INHALE RQ6H PRN PRN Reason: Shortness of Breath/Wheezing Last Admin: 11/08/24 22:58 Dose: 1 puff Documented By: NICOLAS Amiodarone HCl (Amiodarone Hcl 200 Mg Tablet) 200 mg PO DAILY [facility] Last Admin: 11/11/24 08:50 Dose: 200 mg Documented By: DION Apixaban (Apixaban 5 Mg Tablet) 5 mg PO BID [facility] Last Admin: 11/11/24 08:50 Dose: 5 mg Documented By: DION Atorvastatin Calcium (Atorvastatin Calcium 40 Mg Tablet) 40 mg PO BEDTIME [facility] Last Admin: 11/10/24 20:33 Dose: 40 mg Documented By: CRISTIANO Buprenorphine/Naloxone (Buprenorphine/Naloxone 8/2 Mg Film) 1 film SUBLINGUAL TID [facility] Last Admin: 11/11/24 08:51 Dose: 1 film Documented By: DION Calcitriol (Calcitriol 0.25 Mcg Capsule) 0.5 mcg PO DAILY [facility] Last Admin: 11/11/24 08:51 Dose: 0.5 mcg Documented By: DION Calcium Acetate (Calcium Acetate 667 Mg Capsule) 1,334 mg PO TIDWM [facility] Last Admin: 11/11/24 11:44 Dose: 1,334 mg Documented By: DION Calcium Carbonate (Calcium Carbonate 750 Mg Tab.Chew) 750 mg PO Q4H PRN PRN Reason: Heartburn Ceftriaxone Sodium (Ceftriaxone Sodium 1 Gm Vial) 1 gm IVPUSH Q24H [facility] Last Admin: 11/11/24 11:44 Dose: 1 gm Documented By: DION Collagenase (Collagenase Clostridium Hist. 30 Gm Tube) 1 appl TOPICAL BID [facility]; Protocol Last Admin: 11/11/24 11:44 Dose: 1 appl Documented By: DION Glucose (Glucose Gel 15 Gm Gel..Gram.) 15 gm PO Q15M PRN; Protocol PRN Reason: per Hypoglycemia Standing Ord. Dextrose (D10) 250 mls @ 750 mls/hr IV Q15M PRN; Protocol PRN Reason: per Hypoglycemia Standing Ord. Vancomycin HCl 500 mg/ Sodium (Chloride) 110 mls @ 110 mls/hr IV MoWeFr@1800 [facility] Metronidazole (Flagyl) 500 mg in 100 mls @ 100 mls/hr IV Q8H [facility] Last Infusion: 11/11/24 10:07 Dose: Infused Documented By: DION Insulin Glargine (Insulin Glargine,Hum.Rec.Anlog 100 Unit/Ml 10 Ml Vial) 10 unit SUBCUT DAILY [facility] Last Admin: 11/11/24 08:50 Dose: 10 unit Documented By: DION Insulin Human Lispro (Insulin Lispro 100 Unit/Ml 3 Ml Vial) 0 unit SUBCUT QIDACHS [facility]; Protocol Last Admin: 11/11/24 12:29 Dose: 6 unit Documented By: DION Levofloxacin (Levofloxacin 500 Mg Tablet) 500 mg PO Q48H [facility] Last Admin: 11/10/24 20:34 Dose: 500 mg Documented By: CRISTIANO Magnesium Hydroxide (Milk Of Magnesia 30 Ml Oral.Susp) 30 ml PO DAILY PRN PRN Reason: Constipation Melatonin (Melatonin 3 Mg Tablet) 6 mg PO BEDTIME PRN PRN Reason: Insomnia Metoprolol Succinate (Metoprolol Succinate Er 50 Mg Tab.Er.24h) 50 mg PO DAILY [facility]; Protocol Last Admin: 11/11/24 08:50 Dose: 50 mg Documented By: DION Midodrine (Midodrine Hcl 5 Mg Tablet) 5 mg PO BIDWM [facility] Last Admin: 11/11/24 08:50 Dose: 5 mg Documented By: DION Multivitamins/Vitamin C (Multivitamin Tablet) 1 tab PO DAILY [facility] Last Admin: 11/11/24 08:50 Dose: 1 tab Documented By: DION Omeprazole (Omeprazole 20 Mg Capsule.Dr) 20 mg PO DAILY@0630 [facility] Last Admin: 11/11/24 05:34 Dose: 20 mg Documented By: CRISTIANO Ondansetron HCl (Ondansetron Hcl 4 Mg/2 Ml Vial) 4 mg IVPUSH Q8H PRN PRN Reason: Nausea and Vomiting Oxycodone HCl (Oxycodone Hcl Immed Release 5 Mg Tablet) 5 mg PO Q4H PRN PRN Reason: Pain, Severe (Pain Scale 7-10) Last Admin: 11/11/24 14:03 Dose: 5 mg Documented By: DION Pharmacy Consult (Consult Rx Vancomycin Dosing) 1 each MISCELLANE DAILY PRN PRN Reason: Consult order Polyethylene Glycol (Polyethylene Glycol 3350 17 Gm Powd.Pack) 17 gm PO DAILY PRN PRN Reason: Constipation Sodium Chloride (0.9 % Sodium Chloride Flush 3 Ml Syringe) 3 ml IVFLUSH QSHIFT [facility] Last Admin: 11/11/24 08:51 Dose: 3 ml Documented By: DION Torsemide (Torsemide 20 Mg Tablet) 80 mg PO BIDWM [facility]; Protocol Last Admin: 11/11/24 08:51 Dose: 80 mg Documented By: DION Labs 11/11/24 06:28 11/10/24 07:37 Labs: Laboratory Results - last 24 hr 11/09/24 11/10/24 11/10/24 16:40 16:46 19:01 MCV MCH MCHC RDW Plt Count MPV Absolute Nucleated RBC Nucleated RBC % (auto) POC Glucose 118 H Random Vancomycin 10.5 L Blood Type O Positive Antibody Screen NEGATIVE Crossmatch See Detail 11/10/24 11/11/24 11/11/24 21:50 06:28 07:24 MCV 86.3 MCH 26.4 L MCHC 30.6 L RDW 15.8 Plt Count 365 MPV 10.5 Absolute Nucleated RBC 0.000 Nucleated RBC % (auto) 0.0 POC Glucose 196 H 102 Random Vancomycin Blood Type Antibody Screen Crossmatch 11/11/24 11:58 MCV MCH MCHC RDW Plt Count MPV Absolute Nucleated RBC Nucleated RBC % (auto) POC Glucose 263 H Random Vancomycin Blood Type Antibody Screen Crossmatch Microbiology Microbiology Results: Microbiology 11/05/24 21:38 Blood Culture - Final Blood - Venous No growth after 5 days. 11/05/24 21:30 Blood Culture - Final Blood - Venous No growth after 5 days. 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 -wound culture growing Klebsiel and Proteus--sensitive to ceftriaxone -Continue Vancomyin per prior MRSA bacteremia, end date November 17 continue Ceftriaxone/flagyl starting 11/08,added levoflox 11/09/23 ( wound culture also show pseudomonas.) Id eval-noted -d/w iD also wound culture recomended to add levoflox. ESRD--HD MWF (Nephrology following) Paroxysmal atrial flutter. Continue amiodarone, metoprolol and Eliquis HypOtension--required vasopressors, continue Midodrine and hold diuretic if BP ok, ok to continue metoprolol Elevated troponin, chronic. No chest pain. Likely secondary to end-stage renal disease. Acute on chronic anemia- iron levels low tibc,iron sats ,ferritin, folate and b12 seems fine. denies any gross bleeding or melena as per patient. h/h 8.5 ,nephro rec to transfuse 2 more prbc(total 5 prbc this admission). moniter cbc History of drug abuse. Continue Suboxone. Addiction med consult. Pressure ulcer, nursing wound protocol -surgery consult noted- difficult constellation of skin wounds in an area not amenable to debridement, best treated with local wound care. wound care: Turn and Reposition every 2 hours and as needed for patient comfort.? Use pillows or wedges to support off loading positions. Off Load all bony prominences with use of pillows and heel boots if needed.? Apply Preventative foams where needed. ? Monitor for incontinence and moisture control, use barrier creams when needed for prevention and treatment. Recommend Condom cath for urinary containment as patient is incontinent of urine at times. Provide adequate and supplemental nutrition.? Continue Pulsate from Agility bed. Maintain blood glucose levels per Providers order. Scrotum and Sacrum and Coccyx Buttock- Off Load Pressure with Q2hr turns and use of pillows. Cleanse with PH balance spray or wipes, pat dry. ?Apply thin layer of Triad to wound bed - only pat and dab no scrub and rub when soiling occurs. Reapply thin layer PRN after each episode of incontinence. Do not use foam dressing at this time. Left Heel, Right Hip, Right Thigh and bilateral groin - Cleanse with Stacie [place] and NS moist gauze, pat dry. Apply Triad to periwound, apply thick layer of Santyl to entire wound bed, cover with gauze, ABD dressing, change Daily. Mid Back - Gently cleanse with NS moist gauuze, pat dry. Apply skin prep allow to dry. Cover wound bed with thin single layer of xeroform and ABD pad. Change daily. Type 2 diabetes mellitus, hypoglycemia this mornng -BG checks before meals at bedtime. -Insulin sliding scale and Lantus. Diabetic diet Hyperlipidemia. Continue atorvastatin. Right BKA. no issues DVT prophylaxis: Eliquis Pt eval Need for inpt: Septic shock on Iv Abx, wound care , pt eval ,anemia . Quality Stroke Does the patient have a stroke diagnosis?: No VTE Prior VTE?: No VTE Risk Level:: Medical - moderate - high VTE Device Contraindication: Treatment Not Indicated VTE Drug Contraindication: N/A - Med Ordered
[2024-11-11 16:11] LABS: Glucose, Whole Blood 354 mg/dL (60-115)
--- NOTE | 2024-11-11 18:56 | PM.PNNEP ---
Subjective Subjective Date of Service: 11/11/24 Interval history: Events noted. All recent data reviewed Physical Exam Vital Signs: Vital Signs: Last Vital Signs Temp 99.6 F 11/11/24 17:17 Pulse 78 11/11/24 17:17 Resp 18 11/11/24 17:17 BP 113/57 L 11/11/24 17:17 Pulse Ox 98 11/11/24 15:13 O2 Del Method Nasal Cannula 11/11/24 15:13 O2 Flow Rate 2 11/11/24 15:13 Oxygen Flow Rate 4 11/05/24 04:40 BMI result Body Mass Index 27.1 Const: General: no acute distress Orientation/consciousness: patient oriented x3 Eyes: EOM: EOMs intact bilaterally Resp: Auscultation: diminished lung sounds Cardio: Rate: regular rate GI: Palpation (GI): Soft to palpation Neuro: General: patient oriented x3 Objective Data Labs 11/11/24 06:28 11/10/24 07:37 Labs: Laboratory Results - last 24 hr 11/09/24 11/10/24 11/10/24 16:40 19:01 21:50 WBC RBC Hgb 8.7 L D Hct 27.4 L D MCV MCH MCHC RDW Plt Count MPV Absolute Nucleated RBC Nucleated RBC % (auto) POC Glucose 196 H Random Vancomycin 10.5 L Blood Type O Positive Antibody Screen NEGATIVE Crossmatch See Detail 11/11/24 11/11/24 11/11/24 06:28 07:24 11:58 WBC 14.9 H RBC 3.22 L D Hgb 8.5 L Hct 27.8 L MCV 86.3 MCH 26.4 L MCHC 30.6 L RDW 15.8 Plt Count 365 MPV 10.5 Absolute Nucleated RBC 0.000 Nucleated RBC % (auto) 0.0 POC Glucose 102 263 H Random Vancomycin Blood Type Antibody Screen Crossmatch 11/11/24 15:51 WBC RBC Hgb Hct MCV MCH MCHC RDW Plt Count MPV Absolute Nucleated RBC Nucleated RBC % (auto) POC Glucose 354 H* Random Vancomycin Blood Type Antibody Screen Crossmatch Microbiology Microbiology Results: Microbiology 11/05/24 21:38 Blood - Venous Blood Culture - Final No growth after 5 days. 11/05/24 21:30 Blood - Venous Blood Culture - Final No growth after 5 days. 01/06/25 Unknown Urine clean catch - Clean Catch Midstream Urine Culture - Final 11/05/24 04:49 Blood - Venous Blood Culture - Final No growth after 5 days. 11/05/24 04:26 Blood - Venous Blood Culture - Final No growth after 5 days. 11/05/24 11:35 Groin Gram Stain - Final 11/05/24 11:35 Groin Routine Culture - Final Klebsiella pneumoniae Proteus mirabilis Pseudomonas aeruginosa Procedures Date of Service Date of Service: 11/11/24 Assessment & Plan Assessment and plan (1) Anemia in chronic kidney disease (CKD): Status: Acute (2) ESRD (end stage renal disease) on dialysis: Status: Acute Plan Usually gets HD on MWF ( [place] [facility]) Next HD tomorrow morning; Continued vol optimization on HD Antibiotics as guided by ID [place] [id number] U MWF; 2 Units PRBC tomorrow Renal Diet; Phos binder with meals; Shall F/U Progress Note: Quality Stroke Does the patient have a stroke diagnosis?: No
[2024-11-11 19:37] LABS: Glucose, Whole Blood 220 mg/dL (60-115)
[2024-11-11] MEDS: Atorvastatin Calcium 40 MG TABLET PO (20:21)
[2024-11-11] MEDS: Acetaminophen 325 MG TABLET 650 MG PO (20:21)
[2024-11-12] MEDS: metroNIDAZOLE/NS 500 MG/100 ML PIGGYBACK 100 MG IV ×2 (00:40→17:21)
[2024-11-12] MEDS: oxyCODONE HCl Immed Release 5 MG TABLET PO ×4 (00:41→21:43)
[2024-11-12 03:29] VITALS: BP 139/62; PULSE 80; RESP 20; TEMP 37.3; O2SAT 99
[2024-11-12] MEDS: Omeprazole 20 MG CAPSULE.DR PO (05:46)
[2024-11-12 07:36] LABS: Glucose, Whole Blood 111 mg/dL (60-115)
[2024-11-12 08:00] VITALS: BP 107/55; PULSE 78; RESP 16; TEMP 36.8; O2SAT 100
[2024-11-12] MEDS: Calcium Acetate 667 MG CAPSULE 1334 MG PO ×2 (08:45→17:24)
[2024-11-12] MEDS: calcitrioL 0.25 MCG CAPSULE 0.5 MCG PO (08:45)
[2024-11-12] MEDS: Buprenorphine/Naloxone 8/2 mg FILM 1 FILM SUBLINGUAL ×3 (08:45→21:34)
[2024-11-12] MEDS: Apixaban 5 MG TABLET PO ×2 (08:45→21:34)
[2024-11-12] MEDS: Insulin Glargine,Hum.rec.anlog 100 UNIT/ML 10 ML VIAL 10 UNIT SUBCUT (08:45)
[2024-11-12] MEDS: 0.9 % Sodium Chloride Flush 3 ML SYRINGE IVFLUSH ×3 (08:46→20:58)
[2024-11-12] MEDS: Multivitamin TABLET 1 TAB PO (08:47)
[2024-11-12 09:20] LABS: Hematocrit 29.8 % (42.0-52.0); Hemoglobin 9.6 g/dl (14.0-18.0)
[2024-11-12 11:24] LABS: Glucose, Whole Blood 121 mg/dL (60-115)
--- NOTE | 2024-11-12 12:18 | MHC.CLN ---
F/U PT WITH INCREASED NUTRITION NEEDS R/T PRESSURE INJURY PO INTAKE GOOD CONSISTENTLY 75-100% DIET RX: 2000DM 2GM NA -APPROPRIATE PT RECEIVING ENSURE MAX BID TO PROMOTE WOUND HEALING SUPP PROVIDES 300KCALS, 60G PROTEIN CONTINUE TO MONITOR PO INTAKE AND ENCOURAGE SUPPLEMENTS
--- NOTE | 2024-11-12 13:45 | HO.PM.IMPN ---
Subjective Subjective Date of Service: 11/12/24 Interval History: anemia ,wound Review of Systems seems feeling better no new c/o Physical Exam Vital Signs: Vital Signs: Last Vital Signs Temp 98.3 F 11/12/24 08:00 Pulse 78 11/12/24 08:00 Resp 16 11/12/24 08:00 BP 107/55 L 11/12/24 08:00 Pulse Ox 100 11/12/24 08:00 O2 Del Method Nasal Cannula 11/12/24 08:00 O2 Flow Rate 4 11/12/24 08:00 Oxygen Flow Rate 4 11/05/24 04:40 BMI result Body Mass Index 27.1 General: AO X 3, no acute distress Resp: CTA bilateral CVS: S1,S2,RRR GI: +BS, NT, no distention Skin: see h and p pictures Neuro: motor grossly intact Psych: appropriate affect Objective Data Active Medications Acetaminophen (Acetaminophen 325 Mg Tablet) 650 mg PO Q6H PRN PRN Reason: Pain, Mild 1-3,fever,headache Last Admin: 11/11/24 20:21 Dose: 650 mg Documented By: JYOTI Al Hydroxide/Mg Hydroxide (Magnesium Hydrox/Alum Hydrox 30 Ml Oral.Susp) 30 ml PO Q4H PRN PRN Reason: Heartburn Albuterol Sulfate (Albuterol Sulfate 90 Mcg 8 Gm Inhaler) 1 puff INHALE RQ6H PRN PRN Reason: Shortness of Breath/Wheezing Last Admin: 11/08/24 22:58 Dose: 1 puff Documented By: NICOLAS Amiodarone HCl (Amiodarone Hcl 200 Mg Tablet) 200 mg PO DAILY [facility] Last Admin: 11/12/24 09:19 Dose: Not Given Documented By: DION Non-Admin Reason: Off unit: Dialysis Apixaban (Apixaban 5 Mg Tablet) 5 mg PO BID [facility] Last Admin: 11/12/24 08:45 Dose: 5 mg Documented By: DION Atorvastatin Calcium (Atorvastatin Calcium 40 Mg Tablet) 40 mg PO BEDTIME [facility] Last Admin: 11/11/24 20:21 Dose: 40 mg Documented By: JYOTI Buprenorphine/Naloxone (Buprenorphine/Naloxone 8/2 Mg Film) 1 film SUBLINGUAL TID [facility] Last Admin: 11/12/24 08:45 Dose: 1 film Documented By: DION Calcitriol (Calcitriol 0.25 Mcg Capsule) 0.5 mcg PO DAILY [facility] Last Admin: 11/12/24 08:45 Dose: 0.5 mcg Documented By: DION Calcium Acetate (Calcium Acetate 667 Mg Capsule) 1,334 mg PO TIDWM [facility] Last Admin: 11/12/24 08:45 Dose: 1,334 mg Documented By: DION Calcium Carbonate (Calcium Carbonate 750 Mg Tab.Chew) 750 mg PO Q4H PRN PRN Reason: Heartburn Ceftriaxone Sodium (Ceftriaxone Sodium 1 Gm Vial) 1 gm IVPUSH Q24H [facility] Last Admin: 11/11/24 11:44 Dose: 1 gm Documented By: DION Collagenase (Collagenase Clostridium Hist. 30 Gm Tube) 1 appl TOPICAL BID [facility]; Protocol Last Admin: 11/11/24 23:16 Dose: Not Given Documented By: JYOTI Non-Admin Reason: assessed, no action needed Glucose (Glucose Gel 15 Gm Gel..Gram.) 15 gm PO Q15M PRN; Protocol PRN Reason: per Hypoglycemia Standing Ord. Dextrose (D10) 250 mls @ 750 mls/hr IV Q15M PRN; Protocol PRN Reason: per Hypoglycemia Standing Ord. Vancomycin HCl 500 mg/ Sodium (Chloride) 110 mls @ 110 mls/hr IV MoWeFr@1800 [facility] Metronidazole (Flagyl) 500 mg in 100 mls @ 100 mls/hr IV Q8H [facility] Last Infusion: 11/12/24 01:50 Dose: Infused Documented By: JYOTI Insulin Glargine (Insulin Glargine,Hum.Rec.Anlog 100 Unit/Ml 10 Ml Vial) 10 unit SUBCUT DAILY [facility] Last Admin: 11/12/24 08:45 Dose: 10 unit Documented By: DION Insulin Human Lispro (Insulin Lispro 100 Unit/Ml 3 Ml Vial) 0 unit SUBCUT QIDACHS [facility]; Protocol Last Admin: 11/12/24 11:27 Dose: Not Given Documented By: DION Non-Admin Reason: No Insulin Coverage Levofloxacin (Levofloxacin 500 Mg Tablet) 500 mg PO Q48H [facility] Last Admin: 11/10/24 20:34 Dose: 500 mg Documented By: CRISTIANO Magnesium Hydroxide (Milk Of Magnesia 30 Ml Oral.Susp) 30 ml PO DAILY PRN PRN Reason: Constipation Melatonin (Melatonin 3 Mg Tablet) 6 mg PO BEDTIME PRN PRN Reason: Insomnia Metoprolol Succinate (Metoprolol Succinate Er 50 Mg Tab.Er.24h) 50 mg PO DAILY [facility]; Protocol Last Admin: 11/12/24 09:19 Dose: Not Given Documented By: DION Non-Admin Reason: Off unit: Dialysis Midodrine (Midodrine Hcl 5 Mg Tablet) 5 mg PO BIDWM [facility] Last Admin: 11/12/24 09:18 Dose: Not Given Documented By: DION Non-Admin Reason: Off unit: Dialysis Multivitamins/Vitamin C (Multivitamin Tablet) 1 tab PO DAILY [facility] Last Admin: 11/12/24 08:47 Dose: 1 tab Documented By: DION Omeprazole (Omeprazole 20 Mg Capsule.Dr) 20 mg PO DAILY@0630 [facility] Last Admin: 11/12/24 05:46 Dose: 20 mg Documented By: JYOTI Ondansetron HCl (Ondansetron Hcl 4 Mg/2 Ml Vial) 4 mg IVPUSH Q8H PRN PRN Reason: Nausea and Vomiting Oxycodone HCl (Oxycodone Hcl Immed Release 5 Mg Tablet) 5 mg PO Q4H PRN PRN Reason: Pain, Moderate(Pain Scale 4-6) Last Admin: 11/12/24 05:46 Dose: 5 mg Documented By: JYOTI Pharmacy Consult (Consult Rx Vancomycin Dosing) 1 each MISCELLANE DAILY PRN PRN Reason: Consult order Polyethylene Glycol (Polyethylene Glycol 3350 17 Gm Powd.Pack) 17 gm PO DAILY PRN PRN Reason: Constipation Sodium Chloride (0.9 % Sodium Chloride Flush 3 Ml Syringe) 3 ml IVFLUSH QSHIFT [facility] Last Admin: 11/12/24 08:46 Dose: 3 ml Documented By: DION Torsemide (Torsemide 20 Mg Tablet) 80 mg PO BIDWM [facility]; Protocol Last Admin: 11/12/24 09:19 Dose: Not Given Documented By: DION Non-Admin Reason: Off unit: Dialysis Labs 11/12/24 09:11 11/10/24 07:37 Labs: Laboratory Results - last 24 hr 11/09/24 11/11/24 11/11/24 16:40 15:51 19:19 POC Glucose 354 H* 220 H Blood Type O Positive Antibody Screen NEGATIVE Crossmatch See Detail 11/12/24 11/12/24 07:19 11:19 POC Glucose 111 121 H Blood Type Antibody Screen Crossmatch Assessment and Plan (1) Anemia in chronic kidney disease (CKD): Status: Acute Plan 44 y/o man with past medical history significant for ESRD on HD (MWF), diabetes, polysubstance abuse, actively being treated for MRSA and endocarditis here with septic shock possible from unresolved MRSA bacteremia, new infection possible skin as source, Septic shock likely multiple etiology, previous MRSA, abdominal and inner thigh cellulitis--shock resolved. -wound culture growing Klebsiel and Proteus--sensitive to ceftriaxone -Continue Vancomyin per prior MRSA bacteremia, end date November 17 continue Ceftriaxone/flagyl starting 11/08, levoflox 11/09/23 ( wound culture also show pseudomonas.) Id eval-noted -d/w iD also wound culture recomended to add levoflox. ESRD--HD MWF (Nephrology following) Paroxysmal atrial flutter. Continue amiodarone, metoprolol and Eliquis. HypOtension--required vasopressors, continue Midodrine and hold diuretic if BP ok, ok to continue metoprolol Elevated troponin, chronic. No chest pain. Likely secondary to end-stage renal disease. Acute on chronic anemia- iron levels low tibc,iron sats ,ferritin, folate and b12 seems fine. denies any gross bleeding or melena as per patient. s/p 4prbc this admission h/h 9.6 . moniter cbc History of drug abuse. Continue Suboxone. Addiction med consult. Pressure ulcer, nursing wound protocol -surgery consult noted- difficult constellation of skin wounds in an area not amenable to debridement, best treated with local wound care. wound care: Turn and Reposition every 2 hours and as needed for patient comfort.? Use pillows or wedges to support off loading positions. Off Load all bony prominences with use of pillows and heel boots if needed.? Apply Preventative foams where needed. ? Monitor for incontinence and moisture control, use barrier creams when needed for prevention and treatment. Recommend Condom cath for urinary containment as patient is incontinent of urine at times. Provide adequate and supplemental nutrition.? Continue Pulsate from Agility bed. Maintain blood glucose levels per Providers order. Scrotum and Sacrum and Coccyx Buttock- Off Load Pressure with Q2hr turns and use of pillows. Cleanse with PH balance spray or wipes, pat dry. ?Apply thin layer of Triad to wound bed - only pat and dab no scrub and rub when soiling occurs. Reapply thin layer PRN after each episode of incontinence. Do not use foam dressing at this time. Left Heel, Right Hip, Right Thigh and bilateral groin - Cleanse with Stacie [place] and NS moist gauze, pat dry. Apply Triad to periwound, apply thick layer of Santyl to entire wound bed, cover with gauze, ABD dressing, change Daily. Mid Back - Gently cleanse with NS moist gauuze, pat dry. Apply skin prep allow to dry. Cover wound bed with thin single layer of xeroform and ABD pad. Change daily. Type 2 diabetes mellitus, hypoglycemia this mornng -BG checks before meals at bedtime. -Insulin sliding scale and Lantus. Diabetic diet Hyperlipidemia. Continue atorvastatin. Right BKA. no issues DVT prophylaxis: Eliquis Pt eval Need for inpt: awiting placement Quality Stroke Does the patient have a stroke diagnosis?: No VTE Prior VTE?: No VTE Risk Level:: Medical - moderate - high VTE Device Contraindication: Treatment Not Indicated VTE Drug Contraindication: N/A - Med Ordered
[2024-11-12] MEDS: cefTRIAXone sodium 1 GM VIAL IVPUSH (15:04)
--- NOTE | 2024-11-12 15:09 | MHC.CM.PN ---
EMR reviewed and per MD rounds, pt is not medically cleared for discharge at this time. PT is recommending [facility], awaiting bed offers. Per pt, he doesn't want to go to [facility] that is far away.
[2024-11-12 15:33] VITALS: BP 101/52; PULSE 83; RESP 16; TEMP 36.1; O2SAT 99
[2024-11-12 16:34] LABS: Glucose, Whole Blood 270 mg/dL (60-115)
[2024-11-12 17:21] VITALS: BP 109/55
[2024-11-12] MEDS: Torsemide 20 MG TABLET 80 MG PO (17:21)
[2024-11-12] MEDS: Midodrine HCl 5 MG TABLET PO (17:24)
[2024-11-12] MEDS: Insulin Lispro 100 UNIT/ML 3 ML VIAL SUBCUT ×2 (17:24→21:34)
[2024-11-12 19:32] LABS: Vancomycin Random 11.1 mcg/mL (15-20)
[2024-11-12 20:00] VITALS: BP 106/62; PULSE 85; RESP 20; TEMP 36.2; O2SAT 99
[2024-11-12] MEDS: vancomycin HCL 500 MG in 0.9 % Sodium Chloride 100 ML 110 MG IV (20:52)
[2024-11-12 20:53] LABS: Glucose, Whole Blood 173 mg/dL (60-115)
[2024-11-12] MEDS: Collagenase Clostridium Hist. 30 GM TUBE 1 APPL TOPICAL (21:00)
--- NOTE | 2024-11-12 21:15 | P.PNNP_ITS ---
Subjective Subjective Date of Service: 11/12/24 Interval history: Seen on HD this AM. D/W HD RN. All recent data reviewed Physical Exam 2 Vital Signs: Vital Signs: Last Vital Signs Temp 97.2 F 11/12/24 20:00 Pulse 85 11/12/24 20:00 Resp 20 11/12/24 20:00 BP 106/62 11/12/24 20:00 Pulse Ox 99 11/12/24 20:00 O2 Del Method Nasal Cannula 11/12/24 20:00 O2 Flow Rate 2 11/12/24 20:00 Oxygen Flow Rate 4 11/05/24 04:40 BMI result Body Mass Index 27.1 Const: General: comfortable and no acute distress O rientation/consciousness: patient oriented x3 HEENT: Head: Yes normocephalic Mouth: Normal oral and palatal mucosa present Eyes: EOM: EOMs intact bilaterally Resp: Auscultation: clear to auscultation bilaterally Cardio: Jugular venous distension: no JVD Rate: regular rate GI: Palpation (GI): Soft to palpation Auscultation: normal bowel sounds Neuro: General: patient oriented x3 Objective Data Labs 11/12/24 09:11 11/10/24 07:37 Labs: Laboratory Results - last 24 hr 11/12/24 11/12/24 11/12/24 07:19 09:11 11:19 Hgb 9.6 L Hct 29.8 L POC Glucose 111 121 H Random Vancomycin 11/12/24 11/12/24 11/12/24 16:12 19:00 20:48 Hgb Hct POC Glucose 270 H 173 H Random Vancomycin 11.1 L Microbiology Microbiology Results: Microbiology 11/05/24 21:38 Blood - Venous Blood Culture - Final No growth after 5 days. 11/05/24 21:30 Blood - Venous Blood Culture - Final No growth after 5 days. 11/08/24 Unknown Urine clean catch - Clean Catch Midstream Urine Culture - Final 11/05/24 04:49 Blood - Venous Blood Culture - Final No growth after 5 days. 11/05/24 04:26 Blood - Venous Blood Culture - Final No growth after 5 days. 11/05/24 11:35 Groin Gram Stain - Final 11/05/24 11:35 Groin Routine Culture - Final Klebsiella pneumoniae Proteus mirabilis Pseudomonas aeruginosa Procedures Date of Service Date of Service: 11/12/24 Assessment & Plan Assessment and plan (1) ESRD (end stage renal disease) on dialysis: Status: Acute Plan Usually gets HD on MWF ( [facility]) Seen on HD; Continued vol optimization on HD Antibiotics as guided by [place] [id number] U MWF Renal Diet; Phos binder with meals; Shall F/U Progress Note: Quality Stroke Does the patient have a stroke diagnosis?: No
[2024-11-12] MEDS: levoFLOXacin 500 MG TABLET PO (21:34)
[2024-11-12] MEDS: Atorvastatin Calcium 40 MG TABLET PO (21:34)
--- NOTE | 2024-11-12 22:59 | P.PNID_ITS ---
Subjective Subjective Date of Service: 11/12/24 Critical Care Time (minutes): 15 Comment: He has MRSA 12/ blood,/ cath tip. He has gram negative groin wounds Objective Data Labs 11/12/24 09:11 11/10/24 07:37 Labs: Laboratory Results - last 24 hr 11/12/24 11/12/24 11/12/24 07:19 09:11 11:19 Hgb 9.6 L Hct 29.8 L POC Glucose 111 121 H Random Vancomycin 11/12/24 11/12/24 11/12/24 16:12 19:00 20:48 Hgb Hct POC Glucose 270 H 173 H Random Vancomycin 11.1 L Microbiology Microbiology Results: Microbiology 11/05/24 21:38 Blood - Venous Blood Culture - Final No growth after 5 days. 11/05/24 21:30 Blood - Venous Blood Culture - Final No growth after 5 days. 11/08/24 Unknown Urine clean catch - Clean Catch Midstream Urine Culture - Final 11/05/24 04:49 Blood - Venous Blood Culture - Final No growth after 5 days. 11/05/24 04:26 Blood - Venous Blood Culture - Final No growth after 5 days. 11/05/24 11:35 Groin Gram Stain - Final 11/05/24 11:35 Groin Routine Culture - Final Klebsiella pneumoniae Proteus mirabilis Pseudomonas aeruginosa Physical Exam 2 Vital Signs: Vital Signs: Last Vital Signs Temp 97.2 F 11/12/24 20:00 Pulse 85 11/12/24 20:00 Resp 20 11/12/24 20:00 BP 106/62 11/12/24 20:00 Pulse Ox 99 11/12/24 20:00 O2 Del Method Nasal Cannula 11/12/24 20:00 O2 Flow Rate 2 11/12/24 20:00 Oxygen Flow Rate 4 11/05/24 04:40 BMI result Body Mass Index 27.1 Const: General: cooperative HEENT: Head: Yes normal to inspection Face and sinus: Yes normal facial exam Mouth: Normal oral and palatal mucosa present Teeth and gingiva: d entition normal Eyes: General: appearance normal, both eyes and all related structures P upils: Equal, round and reactive pupils present Resp: Effort & Inspection: normal respiratory effort Cardio: Rate: regular rate Rhythm: regular rhythm GI: Palpation (GI): Soft to palpation and nontender : General: Yes no CVA tenderness Back/Spine/Pelvis: Back: no CVA tenderness Skin: General skin exam: no rashes or lesions noted Neuro: General: moves all extremities Cranial nerves: Yes Equal, round and reactive pupils present Extrem: General: Yes normal to inspection Psych: Appearance: grossly normal Assessment and Plan Assessment and plan (1) Anemia in chronic kidney disease (CKD): Status: Acute (2) Cellulitis: Status: Acute (3) Bacteremia: Status: Acute Plan Vancomycin through 11/18 due to MRSA bacteremia. Levaquin for 14 days Can stop Ceftriaxone and flagyl. Time Spent With Patient Time: Total time managing care of this patient today ____ minutes.
[2024-11-12 23:59] VITALS: BP 102/51; PULSE 78; RESP 18; TEMP 36.3; O2SAT 98
[2024-11-13 04:00] VITALS: BP 100/55; PULSE 83; RESP 18; TEMP 36.2; O2SAT 100
[2024-11-13] MEDS: oxyCODONE HCl Immed Release 5 MG TABLET PO ×3 (04:33→20:50)
[2024-11-13] MEDS: Omeprazole 20 MG CAPSULE.DR PO (05:00)
[2024-11-13 07:17] VITALS: BP 101/59; PULSE 84; RESP 16; TEMP 36.7; O2SAT 100
[2024-11-13 07:17] LABS: Glucose, Whole Blood 99 mg/dL (60-115)
[2024-11-13] MEDS: Amiodarone HCL 200 MG TABLET PO (09:13)
[2024-11-13] MEDS: Calcium Acetate 667 MG CAPSULE 1334 MG PO ×3 (09:13→16:02)
[2024-11-13] MEDS: Multivitamin TABLET 1 TAB PO (09:13)
[2024-11-13] MEDS: Midodrine HCl 5 MG TABLET PO ×2 (09:13→16:02)
[2024-11-13] MEDS: Torsemide 20 MG TABLET 80 MG PO ×2 (09:13→16:02)
[2024-11-13] MEDS: Metoprolol Succinate ER 50 MG TAB.ER.24H PO (09:13)
[2024-11-13] MEDS: Apixaban 5 MG TABLET PO ×2 (09:13→20:47)
[2024-11-13] MEDS: Acetaminophen 325 MG TABLET 650 MG PO (09:13)
[2024-11-13] MEDS: calcitrioL 0.25 MCG CAPSULE 0.5 MCG PO (09:13)
[2024-11-13] MEDS: Buprenorphine/Naloxone 8/2 mg FILM 1 FILM SUBLINGUAL ×3 (09:13→20:47)
[2024-11-13] MEDS: Insulin Glargine,Hum.rec.anlog 100 UNIT/ML 10 ML VIAL 10 UNIT SUBCUT (09:14)
[2024-11-13] MEDS: 0.9 % Sodium Chloride Flush 3 ML SYRINGE IVFLUSH ×3 (09:14→20:54)
[2024-11-13 10:38] LABS: Glucose, Whole Blood 148 mg/dL (60-115)
[2024-11-13 10:46] VITALS: BP 111/59; PULSE 79; RESP 16; TEMP 36.7; O2SAT 100
--- NOTE | 2024-11-13 12:22 | MHC.RECOVRN ---
Met with pt in 462 to follow up and provide support.? Pt awake, alert, easily engages in conversation,had visitor at bedside.? Pt reports feeling that his current MOUD are effective and does not request any changes at this time.? Pt denies other concerns at this time.? T/w available as needed.
[2024-11-13] MEDS: Collagenase Clostridium Hist. 30 GM TUBE 1 APPL TOPICAL ×2 (12:34→20:53)
--- NOTE | 2024-11-13 13:41 | P.PNIM_ITS ---
Subjective Subjective Date of Service: 11/13/24 Interval History: anemia Review of Systems seems feeling better no new c/o. Physical Exam 2 Vital Signs: Vital Signs: Last Vital Signs Temp 98.1 F 11/13/24 10:46 Pulse 79 11/13/24 10:46 Resp 16 11/13/24 10:46 BP 111/59 L 11/13/24 10:46 Pulse Ox 100 11/13/24 10:46 O2 Del Method Nasal Cannula 11/13/24 10:46 O2 Flow Rate 2 11/13/24 10:46 Oxygen Flow Rate 4 11/05/24 04:40 BMI result Body Mass Index 27.1 General: AO X 3, no acute distress Resp: CTA bilateral CVS: S1,S2,RRR GI: +BS, NT, no distention Skin: see wound care pic (11/11/24). Neuro: motor grossly intact Psych: appropriate affect Objective Data Active Medications Acetaminophen (Acetaminophen 325 Mg Tablet) 650 mg PO Q6H PRN PRN Reason: Pain, Mild 1-3,fever,headache Last Admin: 11/13/24 09:13 Dose: 650 mg Documented By: KIM Al Hydroxide/Mg Hydroxide (Magnesium Hydrox/Alum Hydrox 30 Ml Oral.Susp) 30 ml PO Q4H PRN PRN Reason: Heartburn Albuterol Sulfate (Albuterol Sulfate 90 Mcg 8 Gm Inhaler) 1 puff INHALE RQ6H PRN PRN Reason: Shortness of Breath/Wheezing Last Admin: 11/08/24 22:58 Dose: 1 puff Documented By: NICOLAS Amiodarone HCl (Amiodarone Hcl 200 Mg Tablet) 200 mg PO DAILY [facility] Last Admin: 11/13/24 09:13 Dose: 200 mg Documented By: KIM Apixaban (Apixaban 5 Mg Tablet) 5 mg PO BID [facility] Last Admin: 11/13/24 09:13 Dose: 5 mg Documented By: KIM Atorvastatin Calcium (Atorvastatin Calcium 40 Mg Tablet) 40 mg PO BEDTIME [facility] Last Admin: 11/12/24 21:34 Dose: 40 mg Documented By: WILIAM Buprenorphine/Naloxone (Buprenorphine/Naloxone 8/2 Mg Film) 1 film SUBLINGUAL TID [facility] Last Admin: 11/13/24 09:13 Dose: 1 film Documented By: KIM Calcitriol (Calcitriol 0.25 Mcg Capsule) 0.5 mcg PO DAILY [facility] Last Admin: 11/13/24 09:13 Dose: 0.5 mcg Documented By: KIM Calcium Acetate (Calcium Acetate 667 Mg Capsule) 1,334 mg PO TIDWM [facility] Last Admin: 11/13/24 12:32 Dose: 1,334 mg Documented By: KIM Calcium Carbonate (Calcium Carbonate 750 Mg Tab.Chew) 750 mg PO Q4H PRN PRN Reason: Heartburn Collagenase (Collagenase Clostridium Hist. 30 Gm Tube) 1 appl TOPICAL BID [facility]; Protocol Last Admin: 11/13/24 12:34 Dose: 1 appl Documented By: KIM Glucose (Glucose Gel 15 Gm Gel..Gram.) 15 gm PO Q15M PRN; Protocol PRN Reason: per Hypoglycemia Standing Ord. Dextrose (D10) 250 mls @ 750 mls/hr IV Q15M PRN; Protocol PRN Reason: per Hypoglycemia Standing Ord. Vancomycin HCl 500 mg/ Sodium (Chloride) 110 mls @ 110 mls/hr IV MoWeFr@1800 [facility] Insulin Glargine (Insulin Glargine,Hum.Rec.Anlog 100 Unit/Ml 10 Ml Vial) 10 unit SUBCUT DAILY [facility] Last Admin: 11/13/24 09:14 Dose: 10 unit Documented By: KIM Insulin Human Lispro (Insulin Lispro 100 Unit/Ml 3 Ml Vial) 0 unit SUBCUT QIDACHS [facility]; Protocol Last Admin: 11/13/24 10:50 Dose: Not Given Documented By: KIM Non-Admin Reason: No Insulin Coverage Levofloxacin (Levofloxacin 500 Mg Tablet) 500 mg PO Q48H [facility] Last Admin: 11/12/24 21:34 Dose: 500 mg Documented By: WILIAM Magnesium Hydroxide (Milk Of Magnesia 30 Ml Oral.Susp) 30 ml PO DAILY PRN PRN Reason: Constipation Melatonin (Melatonin 3 Mg Tablet) 6 mg PO BEDTIME PRN PRN Reason: Insomnia Metoprolol Succinate (Metoprolol Succinate Er 50 Mg Tab.Er.24h) 50 mg PO DAILY [facility]; Protocol Last Admin: 11/13/24 09:13 Dose: 50 mg Documented By: KIM Midodrine (Midodrine Hcl 5 Mg Tablet) 5 mg PO BIDWM [facility] Last Admin: 11/13/24 09:13 Dose: 5 mg Documented By: KIM Multivitamins/Vitamin C (Multivitamin Tablet) 1 tab PO DAILY [facility] Last Admin: 11/13/24 09:13 Dose: 1 tab Documented By: KIM Omeprazole (Omeprazole 20 Mg Capsule.) 20 mg PO DAILY@0630 [facility] Last Admin: 11/13/24 05:00 Dose: 20 mg Documented By: WILIAM Ondansetron HCl (Ondansetron Hcl 4 Mg/2 Ml Vial) 4 mg IVPUSH Q8H PRN PRN Reason: Nausea and Vomiting Oxycodone HCl (Oxycodone Hcl Immed Release 5 Mg Tablet) 5 mg PO Q4H PRN PRN Reason: Pain, Moderate(Pain Scale 4-6) Last Admin: 11/13/24 09:13 Dose: 5 mg Documented By: KIM Pharmacy Consult (Consult Rx Vancomycin Dosing) 1 each MISCELLANE DAILY PRN PRN Reason: Consult order Polyethylene Glycol (Polyethylene Glycol 3350 17 Gm Powd.Pack) 17 gm PO DAILY PRN PRN Reason: Constipation Sodium Chloride (0.9 % Sodium Chloride Flush 3 Ml Syringe) 3 ml IVFLUSH [facility] Last Admin: 11/13/24 09:14 Dose: 3 ml Documented By: KIM Torsemide (Torsemide 20 Mg Tablet) 80 mg PO BIDWM [facility]; Protocol Last Admin: 11/13/24 09:13 Dose: 80 mg Documented By: KIM Labs 11/12/24 09:11 11/10/24 07:37 Labs: Laboratory Results - last 24 hr 11/12/24 11/12/24 11/12/24 16:12 19:00 20:48 POC Glucose 270 H 173 H Random Vancomycin 11.1 L 11/13/24 11/13/24 07:15 10:24 POC Glucose 99 148 H Random Vancomycin Assessment and Plan (1) Anemia in chronic kidney disease (CKD): Status: Acute Plan 44 y/o man with past medical history significant for ESRD on HD (MWF), diabetes, polysubstance abuse, actively being treated for MRSA and endocarditis here with septic shock possible from unresolved MRSA bacteremia, new infection possible skin as source, Septic shock likely multiple etiology, previous MRSA, abdominal and inner thigh cellulitis--shock resolved. -wound culture growing Klebsiel and Proteus--sensitive to ceftriaxone -Continue Vancomyin per prior MRSA bacteremia, end date November 17 continue Ceftriaxone/flagyl starting 11/08, levoflox 11/09/23 ( wound culture also show pseudomonas.) Id eval-noted -d/w iD also wound culture recomended to add levoflox. ESRD--HD MWF (Nephrology following) Paroxysmal atrial flutter. Continue amiodarone, metoprolol and Eliquis. HypOtension--required vasopressors, continue Midodrine and hold diuretic if BP ok, ok to continue metoprolol Elevated troponin, chronic. No chest pain. Likely secondary to end-stage renal disease. Acute on chronic anemia- iron levels low tibc,iron sats ,ferritin, folate and b12 seems fine. denies any gross bleeding or melena as per patient. s/p 4prbc this admission h/h 9.6 . moniter cbc History of drug abuse. Continue Suboxone. Addiction med consult. Pressure ulcer, nursing wound protocol -surgery consult noted- difficult constellation of skin wounds in an area not amenable to debridement, best treated with local wound care. wound care: Turn and Reposition every 2 hours and as needed for patient comfort.? Use pillows or wedges to support off loading positions. Off Load all bony prominences with use of pillows and heel boots if needed.? Apply Preventative foams where needed. ? Monitor for incontinence and moisture control, use barrier creams when needed for prevention and treatment. Recommend Condom cath for urinary containment as patient is incontinent of urine at times. Provide adequate and supplemental nutrition.? Continue Pulsate from Agility bed. Maintain blood glucose levels per Providers order. Scrotum and Sacrum and Coccyx Buttock- Off Load Pressure with Q2hr turns and use of pillows. Cleanse with PH balance spray or wipes, pat dry. ?Apply thin layer of Triad to wound bed - only pat and dab no scrub and rub when soiling occurs. Reapply thin layer PRN after each episode of incontinence. Do not use foam dressing at this time. Left Heel, Right Hip, Right Thigh and bilateral groin - Cleanse with Stacie [place] and NS moist gauze, pat dry. Apply Triad to periwound, apply thick layer of Santyl to entire wound bed, cover with gauze, ABD dressing, change Daily. Mid Back - Gently cleanse with NS moist gauuze, pat dry. Apply skin prep allow to dry. Cover wound bed with thin single layer of xeroform and ABD pad. Change daily. Type 2 diabetes mellitus, hypoglycemia this mornng -BG checks before meals at bedtime. -Insulin sliding scale and Lantus. Diabetic diet Hyperlipidemia. Continue atorvastatin. Right BKA. no issues DVT prophylaxis: Eliquis Pt eval Need for inpt: awaiting placement Quality Stroke Does the patient have a stroke diagnosis?: No VTE Prior VTE?: No VTE Risk Level:: Medical - moderate - high VTE Device Contraindication: Treatment Not Indicated VTE Drug Contraindication: N/A - Med Ordered
[2024-11-13 15:11] VITALS: BP 93/62; PULSE 74; RESP 17; TEMP 36.9; O2SAT 97
[2024-11-13 15:28] LABS: Glucose, Whole Blood 436 mg/dL (60-115)
[2024-11-13] MEDS: Insulin Lispro 100 UNIT/ML 3 ML VIAL SUBCUT ×2 (16:06→20:47)
[2024-11-13 19:40] VITALS: BP 115/51; PULSE 82; RESP 16; TEMP 36.9; O2SAT 99
[2024-11-13 20:25] LABS: Glucose, Whole Blood 277 mg/dL (60-115)
[2024-11-13] MEDS: Atorvastatin Calcium 40 MG TABLET PO (20:47)
[2024-11-14] VITALS: BP 119/56; PULSE 82; RESP 18; TEMP 36.7; O2SAT 98
[2024-11-14 04:00] VITALS: BP 122/54; PULSE 78; RESP 16; TEMP 36.9; O2SAT 100
[2024-11-14] MEDS: Omeprazole 20 MG CAPSULE.DR PO (05:18)
[2024-11-14 07:31] VITALS: BP 109/58; PULSE 82; RESP 16; TEMP 36.9; O2SAT 99
[2024-11-14 08:29] LABS: Glucose, Whole Blood 105 mg/dL (60-115)
[2024-11-14] MEDS: calcitrioL 0.25 MCG CAPSULE 0.5 MCG PO (08:43)
[2024-11-14] MEDS: Calcium Acetate 667 MG CAPSULE 1334 MG PO ×3 (08:43→16:13)
[2024-11-14] MEDS: Amiodarone HCL 200 MG TABLET PO (08:43)
[2024-11-14] MEDS: Torsemide 20 MG TABLET 80 MG PO ×2 (08:43→16:13)
[2024-11-14] MEDS: Midodrine HCl 5 MG TABLET PO ×2 (08:44→16:13)
[2024-11-14] MEDS: Insulin Glargine,Hum.rec.anlog 100 UNIT/ML 10 ML VIAL 10 UNIT SUBCUT (08:44)
[2024-11-14] MEDS: Buprenorphine/Naloxone 8/2 mg FILM 1 FILM SUBLINGUAL ×3 (08:44→20:50)
[2024-11-14] MEDS: 0.9 % Sodium Chloride Flush 3 ML SYRINGE IVFLUSH ×3 (08:44→20:51)
[2024-11-14] MEDS: Metoprolol Succinate ER 50 MG TAB.ER.24H PO (08:44)
[2024-11-14] MEDS: Acetaminophen 325 MG TABLET 650 MG PO ×2 (08:44→16:13)
[2024-11-14] MEDS: oxyCODONE HCl Immed Release 5 MG TABLET PO ×3 (08:44→20:50)
[2024-11-14] MEDS: Apixaban 5 MG TABLET PO ×2 (08:44→20:50)
[2024-11-14] MEDS: Multivitamin TABLET 1 TAB PO (08:47)
[2024-11-14] MEDS: Collagenase Clostridium Hist. 30 GM TUBE 1 APPL TOPICAL ×2 (08:48→21:14)
[2024-11-14 11:30] VITALS: BP 128/56; PULSE 82; RESP 16; TEMP 36.3; O2SAT 98
[2024-11-14] MEDS: Insulin Lispro 100 UNIT/ML 3 ML VIAL SUBCUT ×3 (11:45→21:13)
[2024-11-14 11:51] LABS: Glucose, Whole Blood 159 mg/dL (60-115)
--- NOTE | 2024-11-14 12:45 | HO.PM.IMPN ---
Subjective Subjective Date of Service: 11/14/24 Interval History: anemia Review of Systems seems feeling better no new c/o. Physical Exam Vital Signs: Vital Signs: Last Vital Signs Temp 97.4 F 11/14/24 11:30 Pulse 82 11/14/24 11:30 Resp 16 11/14/24 11:30 BP 128/56 L 11/14/24 11:30 Pulse Ox 98 11/14/24 11:30 O2 Del Method Room Air 11/14/24 11:30 O2 Flow Rate 3 11/14/24 04:00 Oxygen Flow Rate 4 11/05/24 04:40 BMI result Body Mass Index 27.1 General: AO X 3, no acute distress Resp: CTA bilateral CVS: S1,S2,RRR GI: +BS, NT, no distention Skin: see wound care pic (11/11/24). Neuro: motor grossly intact Psych: appropriate affect Objective Data Active Medications Acetaminophen (Acetaminophen 325 Mg Tablet) 650 mg PO Q6H PRN PRN Reason: Pain, Mild 1-3,fever,headache Last Admin: 11/14/24 08:44 Dose: 650 mg Documented By: KIM Al Hydroxide/Mg Hydroxide (Magnesium Hydrox/Alum Hydrox 30 Ml Oral.Susp) 30 ml PO Q4H PRN PRN Reason: Heartburn Albuterol Sulfate (Albuterol Sulfate 90 Mcg 8 Gm Inhaler) 1 puff INHALE RQ6H PRN PRN Reason: Shortness of Breath/Wheezing Last Admin: 11/08/24 22:58 Dose: 1 puff Documented By: NICOLAS Amiodarone HCl (Amiodarone Hcl 200 Mg Tablet) 200 mg PO DAILY [facility] Last Admin: 11/14/24 08:43 Dose: 200 mg Documented By: KIM Apixaban (Apixaban 5 Mg Tablet) 5 mg PO BID [facility] Last Admin: 11/14/24 08:44 Dose: 5 mg Documented By: KIM Atorvastatin Calcium (Atorvastatin Calcium 40 Mg Tablet) 40 mg PO BEDTIME [facility] Last Admin: 11/13/24 20:47 Dose: 40 mg Documented By: DANIELLE Buprenorphine/Naloxone (Buprenorphine/Naloxone 8/2 Mg Film) 1 film SUBLINGUAL TID [facility] Last Admin: 11/14/24 08:44 Dose: 1 film Documented By: KIM Calcitriol (Calcitriol 0.25 Mcg Capsule) 0.5 mcg PO DAILY [facility] Last Admin: 11/14/24 08:43 Dose: 0.5 mcg Documented By: KIM Calcium Acetate (Calcium Acetate 667 Mg Capsule) 1,334 mg PO TIDWM [facility] Last Admin: 11/14/24 11:45 Dose: 1,334 mg Documented By: KIM Calcium Carbonate (Calcium Carbonate 750 Mg Tab.Chew) 750 mg PO Q4H PRN PRN Reason: Heartburn Collagenase (Collagenase Clostridium Hist. 30 Gm Tube) 1 appl TOPICAL BID [facility]; Protocol Last Admin: 11/14/24 08:48 Dose: 1 appl Documented By: KIM Glucose (Glucose Gel 15 Gm Gel..Gram.) 15 gm PO Q15M PRN; Protocol PRN Reason: per Hypoglycemia Standing Ord. Dextrose (D10) 250 mls @ 750 mls/hr IV Q15M PRN; Protocol PRN Reason: per Hypoglycemia Standing Ord. Vancomycin HCl 500 mg/ Sodium (Chloride) 110 mls @ 110 mls/hr IV MoWeFr@1800 [facility] Insulin Glargine (Insulin Glargine,Hum.Rec.Anlog 100 Unit/Ml 10 Ml Vial) 10 unit SUBCUT DAILY [facility] Last Admin: 11/14/24 08:44 Dose: 10 unit Documented By: KIM Insulin Human Lispro (Insulin Lispro 100 Unit/Ml 3 Ml Vial) 0 unit SUBCUT QIDACHS [facility]; Protocol Last Admin: 11/14/24 11:45 Dose: 2 unit Documented By: KIM Levofloxacin (Levofloxacin 500 Mg Tablet) 500 mg PO Q48H [facility] Last Admin: 11/12/24 21:34 Dose: 500 mg Documented By: WILIAM Magnesium Hydroxide (Milk Of Magnesia 30 Ml Oral.Susp) 30 ml PO DAILY PRN PRN Reason: Constipation Melatonin (Melatonin 3 Mg Tablet) 6 mg PO BEDTIME PRN PRN Reason: Insomnia Metoprolol Succinate (Metoprolol Succinate Er 50 Mg Tab.Er.24h) 50 mg PO DAILY [facility]; Protocol Last Admin: 11/14/24 08:44 Dose: 50 mg Documented By: KIM Midodrine (Midodrine Hcl 5 Mg Tablet) 5 mg PO BIDWM [facility] Last Admin: 11/14/24 08:44 Dose: 5 mg Documented By: KIM Multivitamins/Vitamin C (Multivitamin Tablet) 1 tab PO DAILY [facility] Last Admin: 11/14/24 08:47 Dose: 1 tab Documented By: KIM Omeprazole (Omeprazole 20 Mg Capsule.) 20 mg PO DAILY@0630 [facility] Last Admin: 11/14/24 05:18 Dose: 20 mg Documented By: DANIELLE Ondansetron HCl (Ondansetron Hcl 4 Mg/2 Ml Vial) 4 mg IVPUSH Q8H PRN PRN Reason: Nausea and Vomiting Oxycodone HCl (Oxycodone Hcl Immed Release 5 Mg Tablet) 5 mg PO Q4H PRN PRN Reason: Pain, Moderate(Pain Scale 4-6) Last Admin: 11/14/24 08:44 Dose: 5 mg Documented By: KIM Pharmacy Consult (Consult Rx Vancomycin Dosing) 1 each MISCELLANE DAILY PRN PRN Reason: Consult order Polyethylene Glycol (Polyethylene Glycol 3350 17 Gm Powd.Pack) 17 gm PO DAILY PRN PRN Reason: Constipation Sodium Chloride (0.9 % Sodium Chloride Flush 3 Ml Syringe) 3 ml IVFLUSH QSHIFT [facility] Last Admin: 11/14/24 08:44 Dose: 3 ml Documented By: KIM Torsemide (Torsemide 20 Mg Tablet) 80 mg PO BIDWM [facility]; Protocol Last Admin: 11/14/24 08:43 Dose: 80 mg Documented By: KIM Labs 11/12/24 09:11 11/10/24 07:37 Labs: Laboratory Results - last 24 hr 11/13/24 11/13/24 11/14/24 15:19 20:12 07:40 POC Glucose 436 H* 277 H 105 11/14/24 11:31 POC Glucose 159 H Assessment and Plan (1) Anemia in chronic kidney disease (CKD): Status: Acute Plan 44 y/o man with past medical history significant for ESRD on HD (MWF), diabetes, polysubstance abuse, actively being treated for MRSA and endocarditis here with septic shock possible from unresolved MRSA bacteremia, new infection possible skin as source, Septic shock likely multiple etiology, previous MRSA, abdominal and inner thigh cellulitis--shock resolved. -wound culture growing Klebsiel and Proteus--sensitive to ceftriaxone -Continue Vancomyin per prior MRSA bacteremia, end date November 17 continue Ceftriaxone/flagyl starting 11/08, levoflox 11/09/23 ( wound culture also show pseudomonas.) Id eval-noted -d/w iD also wound culture recomended to add levoflox. ESRD--HD MWF (Nephrology following) Paroxysmal atrial flutter. Continue amiodarone, metoprolol and Eliquis. HypOtension--required vasopressors, continue Midodrine and hold diuretic if BP ok, ok to continue metoprolol Elevated troponin, chronic. No chest pain. Likely secondary to end-stage renal disease. Acute on chronic anemia- iron levels low tibc,iron sats ,ferritin, folate and b12 seems fine. denies any gross bleeding or melena as per patient. s/p 4prbc this admission h/h 9.6 . moniter cbc History of drug abuse. Continue Suboxone. Addiction med consult. Pressure ulcer, nursing wound protocol -surgery consult noted- difficult constellation of skin wounds in an area not amenable to debridement, best treated with local wound care. wound care: Turn and Reposition every 2 hours and as needed for patient comfort.? Use pillows or wedges to support off loading positions. Off Load all bony prominences with use of pillows and heel boots if needed.? Apply Preventative foams where needed. ? Monitor for incontinence and moisture control, use barrier creams when needed for prevention and treatment. Recommend Condom cath for urinary containment as patient is incontinent of urine at times. Provide adequate and supplemental nutrition.? Continue Pulsate from Agility bed. Maintain blood glucose levels per Providers order. Scrotum and Sacrum and Coccyx Buttock- Off Load Pressure with Q2hr turns and use of pillows. Cleanse with PH balance spray or wipes, pat dry. ?Apply thin layer of Triad to wound bed - only pat and dab no scrub and rub when soiling occurs. Reapply thin layer PRN after each episode of incontinence. Do not use foam dressing at this time. Left Heel, Right Hip, Right Thigh and bilateral groin - Cleanse with Stacie [place] and NS moist gauze, pat dry. Apply Triad to periwound, apply thick layer of Santyl to entire wound bed, cover with gauze, ABD dressing, change Daily. Mid Back - Gently cleanse with NS moist gauuze, pat dry. Apply skin prep allow to dry. Cover wound bed with thin single layer of xeroform and ABD pad. Change daily. Type 2 diabetes mellitus, hypoglycemia this mornng -BG checks before meals at bedtime. -Insulin sliding scale and Lantus. Diabetic diet Hyperlipidemia. Continue atorvastatin. Right BKA. no issues DVT prophylaxis: Eliquis Pt eval Need for inpt: awaiting placement Quality Stroke Does the patient have a stroke diagnosis?: No VTE Prior VTE?: No VTE Risk Level:: Medical - moderate - high VTE Device Contraindication: Treatment Not Indicated VTE Drug Contraindication: N/A - Med Ordered
[2024-11-14 16:00] VITALS: BP 113/58; PULSE 78; RESP 18; TEMP 35.9; O2SAT 98
[2024-11-14 16:22] LABS: Glucose, Whole Blood 229 mg/dL (60-115)
[2024-11-14 20:00] VITALS: BP 108/60; PULSE 74; RESP 20; TEMP 35.8; O2SAT 98
[2024-11-14] MEDS: Atorvastatin Calcium 40 MG TABLET PO (20:50)
[2024-11-14] MEDS: levoFLOXacin 500 MG TABLET PO (20:50)
[2024-11-14 21:08] LABS: Glucose, Whole Blood 242 mg/dL (60-115)
[2024-11-15] VITALS: BP 108/54; PULSE 69; RESP 20; TEMP 37.1; O2SAT 98
[2024-11-15 04:00] VITALS: BP 107/56; PULSE 77; RESP 20; TEMP 36.7; O2SAT 100
[2024-11-15] MEDS: Omeprazole 20 MG CAPSULE.DR PO (05:11)
[2024-11-15] MEDS: oxyCODONE HCl Immed Release 5 MG TABLET PO ×3 (05:12→20:14)
[2024-11-15 07:25] LABS: Glucose, Whole Blood 125 mg/dL (60-115)
[2024-11-15 07:37] VITALS: BP 105/57; PULSE 75; RESP 20; TEMP 36.5; O2SAT 98
[2024-11-15] MEDS: Buprenorphine/Naloxone 8/2 mg FILM 1 FILM SUBLINGUAL ×3 (08:12→20:13)
[2024-11-15] MEDS: Midodrine HCl 5 MG TABLET PO ×2 (08:12→16:05)
[2024-11-15] MEDS: Collagenase Clostridium Hist. 30 GM TUBE 1 APPL TOPICAL ×2 (08:13→20:15)
[2024-11-15] MEDS: 0.9 % Sodium Chloride Flush 3 ML SYRINGE IVFLUSH ×3 (08:14→20:14)
--- NOTE | 2024-11-15 09:49 | P.PNNPD_ITS ---
Subjective Subjective Date of Service: 11/15/24 This patient was seen during dialysis. Interval history: anemia Physical Exam Vital Signs: Vital Signs: Last Vital Signs Temp 97.7 F 11/15/24 07:37 Pulse 75 11/15/24 07:37 Resp 20 11/15/24 07:37 BP 105/57 L 11/15/24 07:37 Pulse Ox 98 11/15/24 07:37 O2 Del Method Room Air 11/15/24 07:37 O2 Flow Rate 4 11/15/24 04:00 Oxygen Flow Rate 4 11/05/24 04:40 BMI result Body Mass Index 27.1 Const: General: comfortable and no acute distress Orientation/consciousness: patient oriented x3 HEENT: Head: Yes normocephalic Mouth: Normal oral and palatal mucosa present Eyes: EOM: EOMs intact bilaterally Neck: Neck: Yes supple Resp: Auscultation: clear to auscultation bilaterally and diminished lung so unds Cardio: Jugular venous distension: no JVD Rate: regular rate GI: Palpation (GI): Soft to palpation Auscultation: normal bowel sounds Neuro: General: patient oriented x3 Extrem: Other: BKA Assessment & Plan Assessment and plan (1) ESRD (end stage renal disease) on dialysis: Status: Acute Plan Usually gets HD on MWF ( [facility]) Seen on HD; Continued vol optimization on HD Antibiotics as guided by ID [facility] Renal Diet; Phos binder with meals; Shall F/U Time Spent With Patient Time: Total time managing care of this patient today ____ minutes. Procedures Date of Service Date of Service: 11/16/24
--- NOTE | 2024-11-15 11:37 | MHC.RECOVRN ---
Met with pt to follow up and provide support. Pt currently in dialysis, met with pt briefly. Pt reports doing good. Concerned regarding Suboxone prescription on discharge, reassured pt a prescription will be sent. Pt denies other questions or concerns. Discussed with Catina Cantu APRN.
[2024-11-15 12:00] VITALS: BP 108/61; PULSE 86; RESP 16; TEMP 36.7; O2SAT 100
[2024-11-15] MEDS: Calcium Acetate 667 MG CAPSULE 1334 MG PO ×2 (12:54→16:05)
[2024-11-15] MEDS: Multivitamin TABLET 1 TAB PO (12:55)
[2024-11-15] MEDS: Torsemide 20 MG TABLET 80 MG PO ×2 (12:55→16:05)
[2024-11-15] MEDS: calcitrioL 0.25 MCG CAPSULE 0.5 MCG PO (12:55)
[2024-11-15] MEDS: Metoprolol Succinate ER 50 MG TAB.ER.24H PO (12:55)
[2024-11-15] MEDS: Apixaban 5 MG TABLET PO ×2 (12:56→20:13)
[2024-11-15] MEDS: Insulin Glargine,Hum.rec.anlog 100 UNIT/ML 10 ML VIAL 10 UNIT SUBCUT (12:56)
[2024-11-15] MEDS: Amiodarone HCL 200 MG TABLET PO (12:56)
[2024-11-15 13:12] LABS: Glucose, Whole Blood 144 mg/dL (60-115)
--- NOTE | 2024-11-15 14:55 | MHC.CM.PN ---
EMR reviewed and per MD rounds, pt is not medically cleared due to awaiting STR placement, no current STR bed offers.
[2024-11-15] MEDS: Loperamide HCl 2 MG CAPSULE 4 MG PO (15:03)
[2024-11-15 15:17] VITALS: BP 107/55; PULSE 83; RESP 17; TEMP 36.4; O2SAT 97
[2024-11-15 16:05] LABS: Glucose, Whole Blood 237 mg/dL (60-115)
[2024-11-15] MEDS: Morphine Sulfate 2 MG/ML CARTRIDGE IVPUSH (16:05)
[2024-11-15] MEDS: Insulin Lispro 100 UNIT/ML 3 ML VIAL SUBCUT ×2 (16:05→20:13)
--- NOTE | 2024-11-15 16:11 | HO.PM.IMPN ---
Subjective Subjective Date of Service: 11/15/24 Interval History: c/o pain at the wound site Physical Exam Vital Signs: Vital Signs: Last Vital Signs Temp 97.6 F 11/15/24 15:17 Pulse 83 11/15/24 15:17 Resp 17 11/15/24 15:17 BP 107/55 L 11/15/24 15:17 Pulse Ox 97 11/15/24 15:17 O2 Del Method Room Air 11/15/24 15:17 O2 Flow Rate 2 11/15/24 12:00 Oxygen Flow Rate 4 11/05/24 04:40 BMI result Body Mass Index 27.1 General: AO X 3, no acute distress Resp: CTA bilateral CVS: S1,S2,RRR GI: +BS, NT, no distention Skin: see wound care pic (11/11/24). Neuro: motor grossly intact Psych: appropriate affect Objective Data Active Medications Acetaminophen (Acetaminophen 325 Mg Tablet) 650 mg PO Q6H PRN PRN Reason: Pain, Mild 1-3,fever,headache Last Admin: 11/14/24 16:13 Dose: 650 mg Documented By: KIM Al Hydroxide/Mg Hydroxide (Magnesium Hydrox/Alum Hydrox 30 Ml Oral.Susp) 30 ml PO Q4H PRN PRN Reason: Heartburn Albuterol Sulfate (Albuterol Sulfate 90 Mcg 8 Gm Inhaler) 1 puff INHALE RQ6H PRN PRN Reason: Shortness of Breath/Wheezing Last Admin: 11/08/24 22:58 Dose: 1 puff Documented By: NICOLAS Amiodarone HCl (Amiodarone Hcl 200 Mg Tablet) 200 mg PO DAILY [facility] Last Admin: 11/15/24 12:56 Dose: 200 mg Documented By: LÓPEZ Apixaban (Apixaban 5 Mg Tablet) 5 mg PO BID [facility] Last Admin: 11/15/24 12:56 Dose: 5 mg Documented By: LÓPEZ Atorvastatin Calcium (Atorvastatin Calcium 40 Mg Tablet) 40 mg PO BEDTIME [facility] Last Admin: 11/14/24 20:50 Dose: 40 mg Documented By: CRISTIANO Buprenorphine/Naloxone (Buprenorphine/Naloxone 8/2 Mg Film) 1 film SUBLINGUAL TID [facility] Last Admin: 11/15/24 15:03 Dose: 1 film Documented By: LÓPEZ Calcitriol (Calcitriol 0.25 Mcg Capsule) 0.5 mcg PO DAILY [facility] Last Admin: 11/15/24 12:55 Dose: 0.5 mcg Documented By: LÓPEZ Calcium Acetate (Calcium Acetate 667 Mg Capsule) 1,334 mg PO TIDWM [facility] Last Admin: 11/15/24 16:05 Dose: 1,334 mg Documented By: LÓPEZ Calcium Carbonate (Calcium Carbonate 750 Mg Tab.Chew) 750 mg PO Q4H PRN PRN Reason: Heartburn Collagenase (Collagenase Clostridium Hist. 30 Gm Tube) 1 appl TOPICAL BID [facility]; Protocol Last Admin: 11/15/24 08:13 Dose: 1 appl Documented By: LÓPEZ Glucose (Glucose Gel 15 Gm Gel..Gram.) 15 gm PO Q15M PRN; Protocol PRN Reason: per Hypoglycemia Standing Ord. Dextrose (D10) 250 mls @ 750 mls/hr IV Q15M PRN; Protocol PRN Reason: per Hypoglycemia Standing Ord. Vancomycin HCl 500 mg/ Sodium (Chloride) 110 mls @ 110 mls/hr IV MoWeFr@1800 [facility] Insulin Glargine (Insulin Glargine,Hum.Rec.Anlog 100 Unit/Ml 10 Ml Vial) 10 unit SUBCUT DAILY [facility] Last Admin: 11/15/24 12:56 Dose: 10 unit Documented By: LÓPEZ Insulin Human Lispro (Insulin Lispro 100 Unit/Ml 3 Ml Vial) 0 unit SUBCUT QIDACHS [facility]; Protocol Last Admin: 11/15/24 16:05 Dose: 4 unit Documented By: LÓPEZ Levofloxacin (Levofloxacin 500 Mg Tablet) 500 mg PO Q48H [facility] Last Admin: 11/14/24 20:50 Dose: 500 mg Documented By: CRISTIANO Loperamide HCl (Loperamide Hcl 2 Mg Capsule) 4 mg PO Q4H PRN PRN Reason: Diarrhea Last Admin: 11/15/24 15:03 Dose: 4 mg Documented By: LÓPEZ Magnesium Hydroxide (Milk Of Magnesia 30 Ml Oral.Susp) 30 ml PO DAILY PRN PRN Reason: Constipation Melatonin (Melatonin 3 Mg Tablet) 6 mg PO BEDTIME PRN PRN Reason: Insomnia Metoprolol Succinate (Metoprolol Succinate Er 50 Mg Tab.Er.24h) 50 mg PO DAILY [facility]; Protocol Last Admin: 11/15/24 12:55 Dose: 50 mg Documented By: LÓPEZ Midodrine (Midodrine Hcl 5 Mg Tablet) 5 mg PO BIDWM [facility] Last Admin: 11/15/24 16:05 Dose: 5 mg Documented By: LÓPEZ Morphine Sulfate (Morphine Sulfate 2 Mg/Ml Cartridge) 2 mg IVPUSH Q4H PRN; Protocol PRN Reason: Pain, Severe (Pain Scale 7-10) Last Admin: 11/15/24 16:05 Dose: 2 mg Documented By: LÓPEZ Multivitamins/Vitamin C (Multivitamin Tablet) 1 tab PO DAILY [facility] Last Admin: 11/15/24 12:55 Dose: 1 tab Documented By: LÓPEZ Omeprazole (Omeprazole 20 Mg Capsule.Dr) 20 mg PO DAILY@0630 [facility] Last Admin: 11/15/24 05:11 Dose: 20 mg Documented By: CRISTIANO Ondansetron HCl (Ondansetron Hcl 4 Mg/2 Ml Vial) 4 mg IVPUSH Q8H PRN PRN Reason: Nausea and Vomiting Oxycodone HCl (Oxycodone Hcl Immed Release 5 Mg Tablet) 5 mg PO Q4H PRN PRN Reason: Pain, Moderate(Pain Scale 4-6) Last Admin: 11/15/24 12:56 Dose: 5 mg Documented By: LÓPEZ Pharmacy Consult (Consult Rx Vancomycin Dosing) 1 each MISCELLANE DAILY PRN PRN Reason: Consult order Polyethylene Glycol (Polyethylene Glycol 3350 17 Gm Powd.Pack) 17 gm PO DAILY PRN PRN Reason: Constipation Sodium Chloride (0.9 % Sodium Chloride Flush 3 Ml Syringe) 3 ml IVFLUSH QSHIFT [facility] Last Admin: 11/15/24 15:05 Dose: 3 ml Documented By: LÓPEZ Torsemide (Torsemide 20 Mg Tablet) 80 mg PO BIDWM [facility]; Protocol Last Admin: 11/15/24 16:05 Dose: 80 mg Documented By: LÓPEZ Labs 11/12/24 09:11 11/10/24 07:37 Labs: Laboratory Results - last 24 hr 11/14/24 11/14/24 11/15/24 16:19 20:51 07:21 POC Glucose 229 H 242 H 125 H 11/15/24 11/15/24 13:09 16:01 POC Glucose 144 H 237 H Assessment and Plan (1) Anemia in chronic kidney disease (CKD): Status: Acute Plan 44 y/o man with past medical history significant for ESRD on HD (MWF), diabetes, polysubstance abuse, actively being treated for MRSA and endocarditis here with septic shock possible from unresolved MRSA bacteremia, new infection possible skin as source, Septic shock likely multiple etiology, previous MRSA, abdominal and inner thigh cellulitis--shock resolved. -wound culture growing Klebsiel and Proteus--sensitive to ceftriaxone -Continue Vancomyin per prior MRSA bacteremia, end date November 17 was on Ceftriaxone/flagyl starting 11/08, changed to levoflox 11/09/23 ( wound culture also show pseudomonas.) Id eval-noted -d/w iD also wound culture recomended to add levoflox. ESRD--HD MWF (Nephrology following) Paroxysmal atrial flutter. Continue amiodarone, metoprolol and Eliquis. HypOtension--required vasopressors, continue Midodrine and hold diuretic if BP ok, ok to continue metoprolol Elevated troponin, chronic. No chest pain. Likely secondary to end-stage renal disease. Acute on chronic anemia- iron levels low tibc,iron sats ,ferritin, folate and b12 seems fine. denies any gross bleeding or melena as per patient. s/p 4prbc this admission h/h 9.6 . moniter cbc History of drug abuse. Continue Suboxone. Addiction med consult. Pressure ulcer, nursing wound protocol -surgery consult noted- difficult constellation of skin wounds in an area not amenable to debridement, best treated with local wound care. wound care: Turn and Reposition every 2 hours and as needed for patient comfort.? Use pillows or wedges to support off loading positions. Off Load all bony prominences with use of pillows and heel boots if needed.? Apply Preventative foams where needed. ? Monitor for incontinence and moisture control, use barrier creams when needed for prevention and treatment. Recommend Condom cath for urinary containment as patient is incontinent of urine at times. Provide adequate and supplemental nutrition.? Continue Pulsate from Agility bed. Maintain blood glucose levels per Providers order. Scrotum and Sacrum and Coccyx Buttock- Off Load Pressure with Q2hr turns and use of pillows. Cleanse with PH balance spray or wipes, pat dry. ?Apply thin layer of Triad to wound bed - only pat and dab no scrub and rub when soiling occurs. Reapply thin layer PRN after each episode of incontinence. Do not use foam dressing at this time. Left Heel, Right Hip, Right Thigh and bilateral groin - Cleanse with Stacie [place] and NS moist gauze, pat dry. Apply Triad to periwound, apply thick layer of Santyl to entire wound bed, cover with gauze, ABD dressing, change Daily. Mid Back - Gently cleanse with NS moist gauuze, pat dry. Apply skin prep allow to dry. Cover wound bed with thin single layer of xeroform and ABD pad. Change daily. Type 2 diabetes mellitus, hypoglycemia this mornng -BG checks before meals at bedtime. -Insulin sliding scale and Lantus. Diabetic diet Hyperlipidemia. Continue atorvastatin. Right BKA. no issues DVT prophylaxis: Eliquis Pt eval Need for inpt: awaiting placement Quality Stroke Does the patient have a stroke diagnosis?: No VTE Prior VTE?: No VTE Risk Level:: Medical - moderate - high VTE Device Contraindication: Treatment Not Indicated VTE Drug Contraindication: N/A - Med Ordered
[2024-11-15 19:30] VITALS: BP 104/58; PULSE 84; RESP 20; TEMP 36.7; O2SAT 99
[2024-11-15 19:37] LABS: Glucose, Whole Blood 179 mg/dL (60-115)
[2024-11-15 19:37] LABS: Vancomycin Random 10.1 mcg/mL (15-20)
[2024-11-15] MEDS: Atorvastatin Calcium 40 MG TABLET PO (20:13)
[2024-11-15] MEDS: vancomycin HCL 500 MG in 0.9 % Sodium Chloride 100 ML 110 MG IV (20:13)
[2024-11-16] VITALS: BP 107/57; PULSE 81; RESP 18; TEMP 36.3; O2SAT 99
[2024-11-16 03:22] VITALS: BP 106/59; PULSE 78; RESP 20; TEMP 36.4; O2SAT 100
[2024-11-16] MEDS: Omeprazole 20 MG CAPSULE.DR PO (04:25)
[2024-11-16] MEDS: oxyCODONE HCl Immed Release 5 MG TABLET PO ×3 (04:25→15:06)
[2024-11-16 07:27] LABS: Glucose, Whole Blood 112 mg/dL (60-115)
[2024-11-16 07:39] VITALS: BP 101/59; PULSE 76; RESP 12; TEMP 35.9; O2SAT 96
[2024-11-16] MEDS: Torsemide 20 MG TABLET 80 MG PO ×2 (08:50→16:58)
[2024-11-16] MEDS: Amiodarone HCL 200 MG TABLET PO (08:50)
[2024-11-16] MEDS: Calcium Acetate 667 MG CAPSULE 1334 MG PO ×3 (08:50→16:59)
[2024-11-16] MEDS: Multivitamin TABLET 1 TAB PO (08:51)
[2024-11-16] MEDS: 0.9 % Sodium Chloride Flush 3 ML SYRINGE IVFLUSH ×3 (08:51→20:37)
[2024-11-16] MEDS: Apixaban 5 MG TABLET PO ×2 (08:51→20:36)
[2024-11-16] MEDS: Insulin Glargine,Hum.rec.anlog 100 UNIT/ML 10 ML VIAL 10 UNIT SUBCUT (08:51)
[2024-11-16] MEDS: Metoprolol Succinate ER 50 MG TAB.ER.24H PO (08:51)
[2024-11-16] MEDS: Midodrine HCl 5 MG TABLET PO ×2 (08:51→16:58)
[2024-11-16] MEDS: Buprenorphine/Naloxone 8/2 mg FILM 1 FILM SUBLINGUAL ×3 (08:51→20:37)
[2024-11-16] MEDS: calcitrioL 0.25 MCG CAPSULE 0.5 MCG PO (08:51)
[2024-11-16] MEDS: Collagenase Clostridium Hist. 30 GM TUBE 1 APPL TOPICAL (08:56)
--- NOTE | 2024-11-16 11:34 | P.PNNP_ITS ---
Subjective Subjective Date of Service: 11/16/24 Interval history: c/o pain at the wound site Physical Exam 2 Vital Signs: Vital Signs: Last Vital Signs Temp 96.7 F L 11/16/24 07:39 Pulse 76 11/16/24 07:39 Resp 12 11/16/24 07:39 BP 101/59 L 11/16/24 07:39 Pulse Ox 96 11/16/24 07:39 O2 Del Method Room Air 11/16/24 07:39 O2 Flow Rate 2 11/16/24 03:22 Oxygen Flow Rate 4 11/05/24 04:40 BMI result Body Mass Index 27.1 Const: General: comfortable and no acute distress O rientation/consciousness: patient oriented x3 HEENT: Head: Yes normocephalic Mouth: Normal oral and palatal mucosa present Eyes: EOM: EOMs intact bilaterally Neck: Neck: Yes supple Resp: Auscultation: clear to auscultation bilaterally and diminished lung sounds Cardio: Jugular venous distension: no JVD Rate: regular rate GI: Palpation (GI): Soft to palpation Auscultation: normal bowel sounds Neuro: General: patient oriented x3 Extrem: Other: BKA Objective Data Labs 11/12/24 09:11 11/10/24 07:37 Labs: Laboratory Results - last 24 hr 11/15/24 11/15/24 11/15/24 13:09 16:01 18:59 POC Glucose 144 H 237 H Random Vancomycin 10.1 L 11/15/24 11/16/24 19:32 07:23 POC Glucose 179 H 112 Random Vancomycin Microbiology Microbiology Results: Microbiology 11/05/24 21:38 Blood - Venous Blood Culture - Final No growth after 5 days. 11/05/24 21:30 Blood - Venous Blood Culture - Final No growth after 5 days. 11/08/24 Unknown Urine clean catch - Clean Catch Midstream Urine Culture - Final 11/05/24 04:49 Blood - Venous Blood Culture - Final No growth after 5 days. 11/05/24 04:26 Blood - Venous Blood Culture - Final No growth after 5 days. 11/05/24 11:35 Groin Gram Stain - Final 11/05/24 11:35 Groin Routine Culture - Final Klebsiella pneumoniae Proteus mirabilis Pseudomonas aeruginosa Procedures Date of Service Date of Service: 11/16/24 Assessment & Plan Assessment and plan (1) ESRD (end stage renal disease) on dialysis: Status: Acute Plan Usually gets HD on MWF ( [facility]) Seen on HD; Continued vol optimization on HD Antibiotics as guided by CESARIO Ronquillo Renal Diet; Phos binder with meals; Shall F/U Time Spent With Patient Time: Total time managing care of this patient today ____ minutes. Progress Note: Quality Stroke Does the patient have a stroke diagnosis?: No
[2024-11-16 11:38] LABS: Glucose, Whole Blood 172 mg/dL (60-115)
[2024-11-16 11:57] VITALS: BP 106/59; PULSE 79; RESP 18; TEMP 37.1; O2SAT 95
[2024-11-16] MEDS: Insulin Lispro 100 UNIT/ML 3 ML VIAL SUBCUT ×3 (12:08→22:44)
--- NOTE | 2024-11-16 13:28 | HO.PM.IMPN ---
Subjective Subjective Date of Service: 11/16/24 Interval History: No new issue, Physical Exam Vital Signs: Vital Signs: Last Vital Signs Temp 98.8 F 11/16/24 11:57 Pulse 79 11/16/24 11:57 Resp 18 11/16/24 11:57 BP 106/59 L 11/16/24 11:57 Pulse Ox 95 11/16/24 11:57 O2 Del Method Room Air 11/16/24 11:57 O2 Flow Rate 2 11/16/24 03:22 Oxygen Flow Rate 4 11/05/24 04:40 BMI result Body Mass Index 27.1 General: AO X 3, no acute distress Resp: CTA bilateral CVS: S1,S2,RRR GI: +BS, NT, no distention Skin: see wound care pic (11/11/24). Neuro: motor grossly intact Psych: appropriate affect Objective Data Active Medications Acetaminophen (Acetaminophen 325 Mg Tablet) 650 mg PO Q6H PRN PRN Reason: Pain, Mild 1-3,fever,headache Last Admin: 11/14/24 16:13 Dose: 650 mg Documented By: KIM Al Hydroxide/Mg Hydroxide (Magnesium Hydrox/Alum Hydrox 30 Ml Oral.Susp) 30 ml PO Q4H PRN PRN Reason: Heartburn Albuterol Sulfate (Albuterol Sulfate 90 Mcg 8 Gm Inhaler) 1 puff INHALE RQ6H PRN PRN Reason: Shortness of Breath/Wheezing Last Admin: 11/08/24 22:58 Dose: 1 puff Documented By: NICOLAS Amiodarone HCl (Amiodarone Hcl 200 Mg Tablet) 200 mg PO DAILY [facility] Last Admin: 11/16/24 08:50 Dose: 200 mg Documented By: LÓPEZ Apixaban (Apixaban 5 Mg Tablet) 5 mg PO BID [facility] Last Admin: 11/16/24 08:51 Dose: 5 mg Documented By: LÓPEZ Atorvastatin Calcium (Atorvastatin Calcium 40 Mg Tablet) 40 mg PO BEDTIME [facility] Last Admin: 11/15/24 20:13 Dose: 40 mg Documented By: CRISTIANO Buprenorphine/Naloxone (Buprenorphine/Naloxone 8/2 Mg Film) 1 film SUBLINGUAL TID [facility] Last Admin: 11/16/24 08:51 Dose: 1 film Documented By: LÓPEZ Calcitriol (Calcitriol 0.25 Mcg Capsule) 0.5 mcg PO DAILY [facility] Last Admin: 11/16/24 08:51 Dose: 0.5 mcg Documented By: LÓPEZ Calcium Acetate (Calcium Acetate 667 Mg Capsule) 1,334 mg PO TIDWM [facility] Last Admin: 11/16/24 12:08 Dose: 1,334 mg Documented By: LÓPEZ Calcium Carbonate (Calcium Carbonate 750 Mg Tab.Chew) 750 mg PO Q4H PRN PRN Reason: Heartburn Collagenase (Collagenase Clostridium Hist. 30 Gm Tube) 1 appl TOPICAL BID [facility]; Protocol Last Admin: 11/16/24 08:56 Dose: 1 appl Documented By: LÓPEZ Glucose (Glucose Gel 15 Gm Gel..Gram.) 15 gm PO Q15M PRN; Protocol PRN Reason: per Hypoglycemia Standing Ord. Dextrose (D10) 250 mls @ 750 mls/hr IV Q15M PRN; Protocol PRN Reason: per Hypoglycemia Standing Ord. Vancomycin HCl 500 mg/ Sodium (Chloride) 110 mls @ 110 mls/hr IV MoWeFr@1800 [facility] Insulin Glargine (Insulin Glargine,Hum.Rec.Anlog 100 Unit/Ml 10 Ml Vial) 10 unit SUBCUT DAILY [facility] Last Admin: 11/16/24 08:51 Dose: 10 unit Documented By: LÓPEZ Insulin Human Lispro (Insulin Lispro 100 Unit/Ml 3 Ml Vial) 0 unit SUBCUT QIDACHS [facility]; Protocol Last Admin: 11/16/24 12:08 Dose: 2 unit Documented By: LÓPEZ Levofloxacin (Levofloxacin 500 Mg Tablet) 500 mg PO Q48H [facility] Last Admin: 11/14/24 20:50 Dose: 500 mg Documented By: HU-PRAVEENA Loperamide HCl (Loperamide Hcl 2 Mg Capsule) 4 mg PO Q4H PRN PRN Reason: Diarrhea Last Admin: 11/15/24 15:03 Dose: 4 mg Documented By: LÓPEZ Magnesium Hydroxide (Milk Of Magnesia 30 Ml Oral.Susp) 30 ml PO DAILY PRN PRN Reason: Constipation Melatonin (Melatonin 3 Mg Tablet) 6 mg PO BEDTIME PRN PRN Reason: Insomnia Metoprolol Succinate (Metoprolol Succinate Er 50 Mg Tab.Er.24h) 50 mg PO DAILY [facility]; Protocol Last Admin: 11/16/24 08:51 Dose: 50 mg Documented By: LÓPEZ Midodrine (Midodrine Hcl 5 Mg Tablet) 5 mg PO BIDWM [facility] Last Admin: 11/16/24 08:51 Dose: 5 mg Documented By: LÓPEZ Morphine Sulfate (Morphine Sulfate 2 Mg/Ml Cartridge) 2 mg IVPUSH Q4H PRN; Protocol PRN Reason: Pain, Severe (Pain Scale 7-10) Last Admin: 11/15/24 16:05 Dose: 2 mg Documented By: LÓPEZ Multivitamins/Vitamin C (Multivitamin Tablet) 1 tab PO DAILY [facility] Last Admin: 11/16/24 08:51 Dose: 1 tab Documented By: LÓPEZ Omeprazole (Omeprazole 20 Mg Capsule.Dr) 20 mg PO DAILY@0630 [facility] Last Admin: 11/16/24 04:25 Dose: 20 mg Documented By: HU-PRAVEENA Ondansetron HCl (Ondansetron Hcl 4 Mg/2 Ml Vial) 4 mg IVPUSH Q8H PRN PRN Reason: Nausea and Vomiting Oxycodone HCl (Oxycodone Hcl Immed Release 5 Mg Tablet) 5 mg PO Q4H PRN PRN Reason: Pain, Moderate(Pain Scale 4-6) Last Admin: 11/16/24 08:52 Dose: 5 mg Documented By: LÓPEZ Polyethylene Glycol (Polyethylene Glycol 3350 17 Gm Powd.Pack) 17 gm PO DAILY PRN PRN Reason: Constipation Sodium Chloride (0.9 % Sodium Chloride Flush 3 Ml Syringe) [facility] Last Admin: 11/16/24 08:51 Dose: 3 ml Documented By: LÓPEZ Torsemide (Torsemide 20 Mg Tablet) 80 mg PO BIDWM [facility]; Protocol Last Admin: 11/16/24 08:50 Dose: 80 mg Documented By: LÓPEZ Labs 11/12/24 09:11 11/10/24 07:37 Labs: Laboratory Results - last 24 hr 11/15/24 11/15/24 11/15/24 16:01 18:59 19:32 POC Glucose 237 H 179 H Random Vancomycin 10.1 L 11/16/24 11/16/24 07:23 11:33 POC Glucose 112 172 H Random Vancomycin Assessment and Plan (1) Anemia in chronic kidney disease (CKD): Status: Acute Plan 44 y/o man with past medical history significant for ESRD on HD (MWF), diabetes, polysubstance abuse, 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 Essentially no change, awaiting placement Septic shock likely multiple etiology, previous MRSA, abdominal and inner thigh cellulitis--shock resolved. -wound culture growing Klebsiel and Proteus--sensitive to ceftriaxone -Continue Vancomyin per prior MRSA bacteremia, end date November 17 was on Ceftriaxone/flagyl starting 11/08, changed to levoflox 11/09/23 ( wound culture also show pseudomonas.) Id eval-noted -d/w iD also wound culture recomended to add levoflox. ESRD--HD MWF (Nephrology following) Paroxysmal atrial flutter. Continue amiodarone, metoprolol and Eliquis. HypOtension--required vasopressors, continue Midodrine and hold diuretic if BP ok, ok to continue metoprolol Elevated troponin, chronic. No chest pain. Likely secondary to end-stage renal disease. Acute on chronic anemia- iron levels low tibc,iron sats ,ferritin, folate and b12 seems fine. denies any gross bleeding or melena as per patient. s/p 4prbc this admission h/h 9.6 . moniter cbc History of drug abuse. Continue Suboxone. Addiction med consult. Pressure ulcer, nursing wound protocol -surgery consult noted- difficult constellation of skin wounds in an area not amenable to debridement, best treated with local wound care. wound care: Turn and Reposition every 2 hours and as needed for patient comfort.? Use pillows or wedges to support off loading positions. Off Load all bony prominences with use of pillows and heel boots if needed.? Apply Preventative foams where needed. ? Monitor for incontinence and moisture control, use barrier creams when needed for prevention and treatment. Recommend Condom cath for urinary containment as patient is incontinent of urine at times. Provide adequate and supplemental nutrition.? Continue Pulsate from Agility bed. Maintain blood glucose levels per Providers order. Scrotum and Sacrum and Coccyx Buttock- Off Load Pressure with Q2hr turns and use of pillows. Cleanse with PH balance spray or wipes, pat dry. ?Apply thin layer of Triad to wound bed - only pat and dab no scrub and rub when soiling occurs. Reapply thin layer PRN after each episode of incontinence. Do not use foam dressing at this time. Left Heel, Right Hip, Right Thigh and bilateral groin - Cleanse with Stacie [place] and NS moist gauze, pat dry. Apply Triad to periwound, apply thick layer of Santyl to entire wound bed, cover with gauze, ABD dressing, change Daily. Mid Back - Gently cleanse with NS moist gauuze, pat dry. Apply skin prep allow to dry. Cover wound bed with thin single layer of xeroform and ABD pad. Change daily. Type 2 diabetes mellitus, hypoglycemia this mornng -BG checks before meals at bedtime. -Insulin sliding scale and Lantus. Diabetic diet Hyperlipidemia. Continue atorvastatin. Right BKA. no issues DVT prophylaxis: Eliquis Pt eval Need for inpt: awaiting placement Quality Stroke Does the patient have a stroke diagnosis?: No VTE Prior VTE?: No VTE Risk Level:: Medical - moderate - high VTE Device Contraindication: Treatment Not Indicated VTE Drug Contraindication: N/A - Med Ordered
[2024-11-16] MEDS: Morphine Sulfate 2 MG/ML CARTRIDGE IVPUSH (15:09)
[2024-11-16] MEDS: Loperamide HCl 2 MG CAPSULE 4 MG PO (15:53)
[2024-11-16 16:00] VITALS: BP 102/55; PULSE 80; RESP 16; TEMP 37.2; O2SAT 96
[2024-11-16 16:28] LABS: Glucose, Whole Blood 192 mg/dL (60-115)
[2024-11-16 19:58] VITALS: BP 107/55; PULSE 80; RESP 12; TEMP 36.4; O2SAT 99
[2024-11-16] MEDS: levoFLOXacin 500 MG TABLET PO (20:36)
[2024-11-16] MEDS: Atorvastatin Calcium 40 MG TABLET PO (20:37)
[2024-11-16 20:53] LABS: Glucose, Whole Blood 255 mg/dL (60-115)
[2024-11-16 22:44] LABS: Glucose, Whole Blood 247 mg/dL (60-115)
[2024-11-17] VITALS: BP 98/45; PULSE 80; RESP 16; TEMP 36.7; O2SAT 97
[2024-11-17] MEDS: oxyCODONE HCl Immed Release 5 MG TABLET PO ×2 (00:58→08:18)
[2024-11-17 04:00] VITALS: BP 103/49; PULSE 74; RESP 16; TEMP 36.3; O2SAT 100
[2024-11-17 07:29] VITALS: BP 111/60; PULSE 63; RESP 18; TEMP 36.6; O2SAT 97
[2024-11-17 07:58] LABS: Glucose, Whole Blood 116 mg/dL (60-115)
[2024-11-17] MEDS: calcitrioL 0.25 MCG CAPSULE 0.5 MCG PO (08:16)
[2024-11-17] MEDS: Buprenorphine/Naloxone 8/2 mg FILM 1 FILM SUBLINGUAL ×3 (08:16→21:17)
[2024-11-17] MEDS: Amiodarone HCL 200 MG TABLET PO (08:16)
[2024-11-17] MEDS: Midodrine HCl 5 MG TABLET PO ×2 (08:16→15:49)
[2024-11-17] MEDS: Calcium Acetate 667 MG CAPSULE 1334 MG PO ×3 (08:16→18:19)
[2024-11-17] MEDS: Multivitamin TABLET 1 TAB PO (08:17)
[2024-11-17] MEDS: Metoprolol Succinate ER 50 MG TAB.ER.24H PO (08:17)
[2024-11-17] MEDS: Torsemide 20 MG TABLET 80 MG PO ×2 (08:17→15:48)
[2024-11-17] MEDS: Apixaban 5 MG TABLET PO ×2 (08:17→21:17)
[2024-11-17] MEDS: 0.9 % Sodium Chloride Flush 3 ML SYRINGE IVFLUSH ×2 (08:20→15:09)
[2024-11-17] MEDS: Collagenase Clostridium Hist. 30 GM TUBE 1 APPL TOPICAL (08:22)
[2024-11-17] MEDS: Insulin Glargine,Hum.rec.anlog 100 UNIT/ML 10 ML VIAL 10 UNIT SUBCUT (08:23)
--- NOTE | 2024-11-17 10:43 | MHC.CM.PN ---
EMR REVIEWED, PT COULD BE MEDICALLY CLEARED FOR DC HOWEVER PT DOES NEED STR FOR EXTENSIVE WOUNDS/PT AND HOME IS NOT CURRENTLY A SAFE DC PLAN, [facility] DECLINING, CM HAS SENT MESSAGE TO OTHER LOCAL SNF'S W/OFFER TO CHANGING HIS MH TRANSPORT TO OUTPT HD TO [facility] PRIOR TO DC, PT HAS NO BED OFFERS AND REPORTS HE WILL NOT GO FAR [facility] HE WANT'S HIS MOTHER TO VISIT. PER HOSPITALIST PT WILL STEPDOWN TO S3 TODAY. CM WILL CONT TO FOLLOW DC NEEDS.
[2024-11-17 11:45] LABS: Glucose, Whole Blood 218 mg/dL (60-115)
--- NOTE | 2024-11-17 12:23 | W.PM.DNNEP ---
Subjective Subjective Date of Service: 11/17/24 This patient was seen during dialysis. Interval history: No new issue, Physical Exam Vital Signs: Vital Signs: Last Vital Signs Temp 97.9 F 11/17/24 07:29 Pulse 63 11/17/24 07:29 Resp 18 11/17/24 07:29 BP 111/60 11/17/24 07:29 Pulse Ox 97 11/17/24 07:29 O2 Del Method Room Air 11/17/24 07:29 O2 Flow Rate 2 11/17/24 04:00 Oxygen Flow Rate 4 11/05/24 04:40 BMI result Body Mass Index 27.1 Const: General: comfortable and no acute distress Orientation/consciousness: patient oriented x3 HEENT: Head: Yes normocephalic Mouth: Normal oral and palatal mucosa present Eyes: EOM: EOMs intact bilaterally Neck: Neck: Yes supple Resp: Auscultation: clear to auscultation bilaterally and diminished lung sounds Cardio: Jugular venous distension: no JVD Rate: regular rate GI: Palpation (GI): Soft to palpation Auscultation: normal bowel sounds Neuro: General: patient oriented x3 Extrem: Other: BKA Assessment & Plan Assessment and plan (1) ESRD (end stage renal disease) on dialysis: Status: Acute Plan Usually gets HD on MWF ( [facility]) Seen on HD; Continued vol optimization on HD Antibiotics as guided by ID Procrit Renal Diet; Phos binder with meals; Shall F/U Time Spent With Patient Time: Total time managing care of this patient today ____ minutes. Procedures Date of Service Date of Service: 11/18/24
--- NOTE | 2024-11-17 13:21 | HO.PM.IMPN ---
Subjective Subjective Date of Service: 11/17/24 Interval History: No new issue, still c/o pain Physical Exam Vital Signs: Vital Signs: Last Vital Signs Temp 97.9 F 11/17/24 07:29 Pulse 63 11/17/24 07:29 Resp 18 11/17/24 07:29 BP 111/60 11/17/24 07:29 Pulse Ox 97 11/17/24 07:29 O2 Del Method Room Air 11/17/24 07:29 O2 Flow Rate 2 11/17/24 04:00 Oxygen Flow Rate 4 11/05/24 04:40 BMI result Body Mass Index 27.1 General: AO X 3, no acute distress Resp: CTA bilateral CVS: S1,S2,RRR GI: +BS, NT, no distention Skin: see wound care pic (11/11/24). Neuro: motor grossly intact Psych: appropriate affect Objective Data Active Medications Acetaminophen (Acetaminophen 325 Mg Tablet) 650 mg PO Q6H PRN PRN Reason: Pain, Mild 1-3,fever,headache Last Admin: 11/14/24 16:13 Dose: 650 mg Documented By: KIM Al Hydroxide/Mg Hydroxide (Magnesium Hydrox/Alum Hydrox 30 Ml Oral.Susp) 30 ml PO Q4H PRN PRN Reason: Heartburn Albuterol Sulfate (Albuterol Sulfate 90 Mcg 8 Gm Inhaler) 1 puff INHALE RQ6H PRN PRN Reason: Shortness of Breath/Wheezing Last Admin: 11/08/24 22:58 Dose: 1 puff Documented By: NICOLAS Amiodarone HCl (Amiodarone Hcl 200 Mg Tablet) 200 mg PO DAILY [facility], [facility] Last Admin: 11/17/24 08:16 Dose: 200 mg Documented By: DENNY Apixaban (Apixaban 5 Mg Tablet) 5 mg PO BID [facility], [facility] Last Admin: 11/17/24 08:17 Dose: 5 mg Documented By: DENNY Atorvastatin Calcium (Atorvastatin Calcium 40 Mg Tablet) 40 mg PO BEDTIME [facility], [facility] Last Admin: 11/16/24 20:37 Dose: 40 mg Documented By: NYA Buprenorphine/Naloxone (Buprenorphine/Naloxone 8/2 Mg Film) 1 film SUBLINGUAL TID [facility], [facility]1983 Last Admin: 11/17/24 08:16 Dose: 1 film Documented By: DENNY Calcitriol (Calcitriol 0.25 Mcg Capsule) 0.5 mcg PO DAILY [facility], [facility] Last Admin: 11/17/24 08:16 Dose: 0.5 mcg Documented By: DENNY Calcium Acetate (Calcium Acetate 667 Mg Capsule) 1,334 mg PO TIDWM [facility], [facility] Last Admin: 11/17/24 08:16 Dose: 1,334 mg Documented By: DENNY Calcium Carbonate (Calcium Carbonate 750 Mg Tab.Chew) 750 mg PO Q4H PRN PRN Reason: Heartburn Collagenase (Collagenase Clostridium Hist. 30 Gm Tube) 1 appl TOPICAL BID [facility], [facility]; Protocol Last Admin: 11/17/24 08:22 Dose: 1 appl Documented By: DENNY Glucose (Glucose Gel 15 Gm Gel..Gram.) 15 gm PO Q15M PRN; Protocol PRN Reason: per Hypoglycemia Standing Ord. Dextrose (D10) 250 mls @ 750 mls/hr IV Q15M PRN; Protocol PRN Reason: per Hypoglycemia Standing Ord. Vancomycin HCl 500 mg/ Sodium (Chloride) 110 mls @ 110 mls/hr IV MoWeFr@1800 [facility], [facility] Insulin Glargine (Insulin Glargine,Hum.Rec.Anlog 100 Unit/Ml 10 Ml Vial) 10 unit SUBCUT DAILY [facility], [facility] Last Admin: 11/17/24 08:23 Dose: 10 unit Documented By: DENNY Insulin Human Lispro (Insulin Lispro 100 Unit/Ml 3 Ml Vial) 0 unit SUBCUT QIDACHS [facility], [facility]; Protocol Last Admin: 11/17/24 12:38 Dose: Not Given Documented By: DENNY Non-Admin Reason: Off unit: Dialysis Levofloxacin (Levofloxacin 500 Mg Tablet) 500 mg PO Q48H [facility], [facility] Last Admin: 11/16/24 20:36 Dose: 500 mg Documented By: NYA Loperamide HCl (Loperamide Hcl 2 Mg Capsule) 4 mg PO Q4H PRN PRN Reason: Diarrhea Last Admin: 11/16/24 15:53 Dose: 4 mg Documented By: LÓPEZ Magnesium Hydroxide (Milk Of Magnesia 30 Ml Oral.Susp) 30 ml PO DAILY PRN PRN Reason: Constipation Melatonin (Melatonin 3 Mg Tablet) 6 mg PO BEDTIME PRN PRN Reason: Insomnia Metoprolol Succinate (Metoprolol Succinate Er 50 Mg Tab.Er.24h) 50 mg PO DAILY [facility], [facility]; Protocol Last Admin: 11/17/24 08:17 Dose: 50 mg Documented By: DENNY Midodrine (Midodrine Hcl 5 Mg Tablet) 5 mg PO BIDWM [facility], [facility] Last Admin: 11/17/24 08:16 Dose: 5 mg Documented By: DENNY Morphine Sulfate (Morphine Sulfate 2 Mg/Ml Cartridge) 2 mg IVPUSH Q4H PRN; Protocol PRN Reason: Pain, Severe (Pain Scale 7-10) Last Admin: 11/16/24 15:09 Dose: 2 mg Documented By: LÓPEZ Multivitamins/Vitamin C (Multivitamin Tablet) 1 tab PO DAILY [facility], [facility] Last Admin: 11/17/24 08:17 Dose: 1 tab Documented By: DENNY Omeprazole (Omeprazole 20 Mg Capsule.Dr) 20 mg PO DAILY@0630 [facility], [facility] Last Admin: 11/17/24 06:00 Dose: Not Given Documented By: NYA Non-Admin Reason: Patient Asleep Ondansetron HCl (Ondansetron Hcl 4 Mg/2 Ml Vial) 4 mg IVPUSH Q8H PRN PRN Reason: Nausea and Vomiting Oxycodone HCl (Oxycodone Hcl Immed Release 5 Mg Tablet) 5 mg PO Q4H PRN PRN Reason: Pain, Moderate(Pain Scale 4-6) Last Admin: 11/17/24 08:18 Dose: 5 mg Documented By: DENNY Polyethylene Glycol (Polyethylene Glycol 3350 17 Gm Powd.Pack) 17 gm PO DAILY PRN PRN Reason: Constipation Sodium Chloride (0.9 % Sodium Chloride Flush 3 Ml Syringe) [facility] Last Admin: 11/17/24 08:20 Dose: 3 ml Documented By: DENNY Torsemide (Torsemide 20 Mg Tablet) 80 mg PO BIDWM [facility], [facility]; Protocol Last Admin: 11/17/24 08:17 Dose: 80 mg Documented By: DENNY Labs 11/12/24 09:11 11/10/24 07:37 Labs: Laboratory Results - last 24 hr 11/16/24 11/16/24 11/16/24 16:25 20:48 22:39 POC Glucose 192 H 255 H 247 H 11/17/24 11/17/24 07:54 11:11 POC Glucose 116 H 218 H Assessment and Plan (1) Anemia in chronic kidney disease (CKD): Status: Acute Plan 44 y/o man with past medical history significant for ESRD on HD (MWF), diabetes, polysubstance abuse, 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 Essentially no change, awaiting placement Septic shock likely multiple etiology, previous MRSA, abdominal and inner thigh cellulitis--shock resolved. -wound culture growing Klebsiel and Proteus--sensitive to ceftriaxone -Continue Vancomyin per prior MRSA bacteremia, end date November 17 was on Ceftriaxone/flagyl starting 11/08, changed to levoflox 11/09/23 ( wound culture also show pseudomonas.) Id eval-noted -d/w iD also wound culture recomended to add levoflox. ESRD--HD MWF (Nephrology following) Paroxysmal atrial flutter. Continue amiodarone, metoprolol and Eliquis. HypOtension--required vasopressors, continue Midodrine and hold diuretic if BP ok, ok to continue metoprolol Elevated troponin, chronic. No chest pain. Likely secondary to end-stage renal disease. Acute on chronic anemia- iron levels low tibc,iron sats ,ferritin, folate and b12 seems fine. denies any gross bleeding or melena as per patient. s/p 4prbc this admission h/h 9.6 . moniter cbc History of drug abuse. Continue Suboxone. Addiction med consult. Pressure ulcer, nursing wound protocol -surgery consult noted- difficult constellation of skin wounds in an area not amenable to debridement, best treated with local wound care. wound care: Turn and Reposition every 2 hours and as needed for patient comfort.? Use pillows or wedges to support off loading positions. Off Load all bony prominences with use of pillows and heel boots if needed.? Apply Preventative foams where needed. ? Monitor for incontinence and moisture control, use barrier creams when needed for prevention and treatment. Recommend Condom cath for urinary containment as patient is incontinent of urine at times. Provide adequate and supplemental nutrition.? Continue Pulsate from Agility bed. Maintain blood glucose levels per Providers order. Scrotum and Sacrum and Coccyx Buttock- Off Load Pressure with Q2hr turns and use of pillows. Cleanse with PH balance spray or wipes, pat dry. ?Apply thin layer of Triad to wound bed - only pat and dab no scrub and rub when soiling occurs. Reapply thin layer PRN after each episode of incontinence. Do not use foam dressing at this time. Left Heel, Right Hip, Right Thigh and bilateral groin - Cleanse with Stacie [place] and NS moist gauze, pat dry. Apply Triad to periwound, apply thick layer of Santyl to entire wound bed, cover with gauze, ABD dressing, change Daily. Mid Back - Gently cleanse with NS moist gauuze, pat dry. Apply skin prep allow to dry. Cover wound bed with thin single layer of xeroform and ABD pad. Change daily. Type 2 diabetes mellitus, hypoglycemia this mornng -BG checks before meals at bedtime. -Insulin sliding scale and Lantus. Diabetic diet Hyperlipidemia. Continue atorvastatin. Right BKA. no issues DVT prophylaxis: Eliquis Pt eval Need for inpt: awaiting placement Quality Stroke Does the patient have a stroke diagnosis?: No VTE Prior VTE?: No VTE Risk Level:: Medical - moderate - high VTE Device Contraindication: Treatment Not Indicated VTE Drug Contraindication: N/A - Med Ordered
[2024-11-17 15:31] VITALS: BP 114/59; PULSE 87; RESP 18; TEMP 36.9; O2SAT 99
[2024-11-17] MEDS: oxyCODONE HCl Immed Release 5 MG TABLET 10 MG PO ×2 (15:48→21:21)
[2024-11-17 16:14] LABS: Glucose, Whole Blood 238 mg/dL (60-115)
[2024-11-17] MEDS: Insulin Lispro 100 UNIT/ML 3 ML VIAL SUBCUT ×2 (17:33→21:17)
[2024-11-17] MEDS: Morphine Sulfate 2 MG/ML CARTRIDGE IVPUSH (18:23)
[2024-11-17 19:58] VITALS: BP 109/54; PULSE 82; RESP 18; TEMP 36.7; O2SAT 100
[2024-11-17 20:00] LABS: Vancomycin Random 10.3 mcg/mL (15-20)
[2024-11-17 20:33] LABS: Glucose, Whole Blood 360 mg/dL (60-115)
[2024-11-17] MEDS: Atorvastatin Calcium 40 MG TABLET PO (21:17)
[2024-11-17] MEDS: vancomycin HCL 750 MG in 0.9 % Sodium Chloride 250 ML 265 MG IV (21:30)
[2024-11-17 23:41] VITALS: BP 101/56; PULSE 82; RESP 18; TEMP 36.9; O2SAT 99
[2024-11-18] MEDS: Morphine Sulfate 2 MG/ML CARTRIDGE IVPUSH ×4 (00:11→17:08)
[2024-11-18] MEDS: 0.9 % Sodium Chloride Flush 3 ML SYRINGE IVFLUSH ×4 (00:15→21:06)
[2024-11-18 04:00] VITALS: BP 106/61; PULSE 86; RESP 18; TEMP 36.3; O2SAT 98
[2024-11-18] MEDS: oxyCODONE HCl Immed Release 5 MG TABLET 10 MG PO ×4 (06:45→21:09)
[2024-11-18] MEDS: Omeprazole 20 MG CAPSULE.DR PO (06:45)
[2024-11-18 07:35] LABS: Glucose, Whole Blood 133 mg/dL (60-115)
[2024-11-18 08:00] VITALS: BP 113/57; PULSE 86; RESP 18; TEMP 37; O2SAT 96
[2024-11-18] MEDS: Calcium Acetate 667 MG CAPSULE 1334 MG PO ×3 (08:45→17:03)
--- NOTE | 2024-11-18 09:54 | HO.PM.IMPN ---
Subjective Subjective Date of Service: 11/18/24 Physical Exam Vital Signs: Vital Signs: Last Vital Signs Temp 98.6 F 11/18/24 08:00 Pulse 86 11/18/24 08:00 Resp 18 11/18/24 08:00 BP 113/57 L 11/18/24 08:00 Pulse Ox 96 11/18/24 08:00 O2 Del Method Room Air 11/18/24 08:00 O2 Flow Rate 2 11/17/24 23:41 Oxygen Flow Rate 4 11/05/24 04:40 BMI result Body Mass Index 27.1 Objective Data Active Medications Acetaminophen (Acetaminophen 325 Mg Tablet) 650 mg PO Q6H PRN PRN Reason: Pain, Mild 1-3,fever,headache Last Admin: 11/14/24 16:13 Dose: 650 mg Documented By: KIM Al Hydroxide/Mg Hydroxide (Magnesium Hydrox/Alum Hydrox 30 Ml Oral.Susp) 30 ml PO Q4H PRN PRN Reason: Heartburn Albuterol Sulfate (Albuterol Sulfate 90 Mcg 8 Gm Inhaler) 1 puff INHALE RQ6H PRN PRN Reason: Shortness of Breath/Wheezing Last Admin: 11/08/24 22:58 Dose: 1 puff Documented By: NICOLAS Amiodarone HCl (Amiodarone Hcl 200 Mg Tablet) 200 mg PO DAILY [facility] Last Admin: 11/17/24 08:16 Dose: 200 mg Documented By: DENNY Apixaban (Apixaban 5 Mg Tablet) 5 mg PO BID [facility] Last Admin: 11/17/24 21:17 Dose: 5 mg Documented By: NYA Atorvastatin Calcium (Atorvastatin Calcium 40 Mg Tablet) 40 mg PO BEDTIME [facility] Last Admin: 11/17/24 21:17 Dose: 40 mg Documented By: NYA Buprenorphine/Naloxone (Buprenorphine/Naloxone 8/2 Mg Film) 1 film SUBLINGUAL TID [facility] Last Admin: 11/17/24 21:17 Dose: 1 film Documented By: NYA Calcitriol (Calcitriol 0.25 Mcg Capsule) 0.5 mcg PO DAILY [facility] Last Admin: 11/17/24 08:16 Dose: 0.5 mcg Documented By: DENNY Calcium Acetate (Calcium Acetate 667 Mg Capsule) 1,334 mg PO TIDWM [facility] Last Admin: 11/17/24 18:19 Dose: 1,334 mg Documented By: DENNY Calcium Carbonate (Calcium Carbonate 750 Mg Tab.Chew) 750 mg PO Q4H PRN PRN Reason: Heartburn Collagenase (Collagenase Clostridium Hist. 30 Gm Tube) 1 appl TOPICAL BID [facility]; Protocol Last Admin: 11/17/24 22:00 Dose: Not Given Documented By: NYA Non-Admin Reason: Patient Refused Glucose (Glucose Gel 15 Gm Gel..Gram.) 15 gm PO Q15M PRN; Protocol PRN Reason: per Hypoglycemia Standing Ord. Dextrose (D10) 250 mls @ 750 mls/hr IV Q15M PRN; Protocol PRN Reason: per Hypoglycemia Standing Ord. Vancomycin HCl 500 mg/ Sodium (Chloride) 110 mls @ 110 mls/hr IV MoWeFr@1800 [facility] Insulin Glargine (Insulin Glargine,Hum.Rec.Anlog 100 Unit/Ml 10 Ml Vial) 10 unit SUBCUT DAILY [facility] Last Admin: 11/17/24 08:23 Dose: 10 unit Documented By: DENNY Insulin Human Lispro (Insulin Lispro 100 Unit/Ml 3 Ml Vial) 0 unit SUBCUT QIDACHS [facility]; Protocol Last Admin: 11/18/24 07:52 Dose: Not Given Documented By: KEN Non-Admin Reason: No Insulin Coverage Levofloxacin (Levofloxacin 500 Mg Tablet) 500 mg PO Q48H [facility] Last Admin: 11/16/24 20:36 Dose: 500 mg Documented By: NYA Loperamide HCl (Loperamide Hcl 2 Mg Capsule) 4 mg PO Q4H PRN PRN Reason: Diarrhea Last Admin: 11/16/24 15:53 Dose: 4 mg Documented By: LÓPEZ Magnesium Hydroxide (Milk Of Magnesia 30 Ml Oral.Susp) 30 ml PO DAILY PRN PRN Reason: Constipation Melatonin (Melatonin 3 Mg Tablet) 6 mg PO BEDTIME PRN PRN Reason: Insomnia Metoprolol Succinate (Metoprolol Succinate Er 50 Mg Tab.Er.24h) 50 mg PO DAILY [facility]; Protocol Last Admin: 11/17/24 08:17 Dose: 50 mg Documented By: DENNY Midodrine (Midodrine Hcl 5 Mg Tablet) 5 mg PO BIDWM [facility] Last Admin: 11/17/24 15:49 Dose: 5 mg Documented By: DENNY Morphine Sulfate (Morphine Sulfate 2 Mg/Ml Cartridge) 2 mg IVPUSH Q4H PRN; Protocol PRN Reason: Pain, Severe (Pain Scale 7-10) Last Admin: 11/18/24 00:11 Dose: 2 mg Documented By: NYA Multivitamins/Vitamin C (Multivitamin Tablet) 1 tab PO DAILY [facility] Last Admin: 11/17/24 08:17 Dose: 1 tab Documented By: DENNY Omeprazole (Omeprazole 20 Mg Capsule.Dr) 20 mg PO DAILY@0630 [facility] Last Admin: 11/18/24 06:45 Dose: 20 mg Documented By: NYA Ondansetron HCl (Ondansetron Hcl 4 Mg/2 Ml Vial) 4 mg IVPUSH Q8H PRN PRN Reason: Nausea and Vomiting Oxycodone HCl (Oxycodone Hcl Immed Release 5 Mg Tablet) 10 mg PO Q4H PRN PRN Reason: Pain, Moderate(Pain Scale 4-6) Last Admin: 11/18/24 06:45 Dose: 10 mg Documented By: NYA Polyethylene Glycol (Polyethylene Glycol 3350 17 Gm Powd.Pack) 17 gm PO DAILY PRN PRN Reason: Constipation Sodium Chloride (0.9 % Sodium Chloride Flush 3 Ml Syringe) [facility] Last Admin: 11/18/24 00:15 Dose: 3 ml Documented By: NYA Torsemide (Torsemide 20 Mg Tablet) 80 mg PO BIDWM [facility]; Protocol Last Admin: 11/17/24 15:48 Dose: 80 mg Documented By: DENNY Labs 11/12/24 09:11 11/10/24 07:37 Labs: Laboratory Results - last 24 hr 11/17/24 11/17/24 11/17/24 11:11 16:09 19:04 POC Glucose 218 H 238 H Random Vancomycin 10.3 L 11/17/24 11/18/24 20:28 07:19 POC Glucose 360 H* 133 H Random Vancomycin Assessment and Plan (1) Anemia in chronic kidney disease (CKD): Status: Acute Plan 44 y/o man with past medical history significant for ESRD on HD (MWF), diabetes, polysubstance abuse, 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 Essentially no change, awaiting placement Septic shock likely multiple etiology, previous MRSA, abdominal and inner thigh cellulitis--shock resolved. -wound culture growing Klebsiel and Proteus--sensitive to ceftriaxone -Continue Vancomyin per prior MRSA bacteremia, end date November 17 was on Ceftriaxone/flagyl starting 11/08, changed to levoflox 11/09/23 ( wound culture also show pseudomonas.) Per ID recommendation ESRD--HD MWF (Nephrology following) Paroxysmal atrial flutter. Continue amiodarone, metoprolol and Eliquis. HypOtension--required vasopressors on presentation, continue Midodrine Elevated troponin, chronic. No chest pain. Likely secondary to end-stage renal disease. Acute on chronic anemia- iron levels low tibc,iron sats ,ferritin, folate and b12 seems fine. denies any gross bleeding or melena as per patient. s/p 4prbc this admission h/h has been stable moniter cbc History of drug abuse. Continue Suboxone. Addiction med consult. Pressure ulcer, nursing wound protocol -surgery consult noted- difficult constellation of skin wounds in an area not amenable to debridement, best treated with local wound care. wound care: Turn and Reposition every 2 hours and as needed for patient comfort.? Use pillows or wedges to support off loading positions. Off Load all bony prominences with use of pillows and heel boots if needed.? Apply Preventative foams where needed. ? Monitor for incontinence and moisture control, use barrier creams when needed for prevention and treatment. Recommend Condom cath for urinary containment as patient is incontinent of urine at times. Provide adequate and supplemental nutrition.? Continue Pulsate from Agility bed. Maintain blood glucose levels per Providers order. Scrotum and Sacrum and Coccyx Buttock- Off Load Pressure with Q2hr turns and use of pillows. Cleanse with PH balance spray or wipes, pat dry. ?Apply thin layer of Triad to wound bed - only pat and dab no scrub and rub when soiling occurs. Reapply thin layer PRN after each episode of incontinence. Do not use foam dressing at this time. Left Heel, Right Hip, Right Thigh and bilateral groin - Cleanse with Stacie [place] and NS moist gauze, pat dry. Apply Triad to periwound, apply thick layer of Santyl to entire wound bed, cover with gauze, ABD dressing, change Daily. Mid Back - Gently cleanse with NS moist gauuze, pat dry. Apply skin prep allow to dry. Cover wound bed with thin single layer of xeroform and ABD pad. Change daily. Type 2 diabetes mellitus, hypoglycemia this mornng -BG checks before meals at bedtime. -Insulin sliding scale and Lantus. Diabetic diet Hyperlipidemia. Continue atorvastatin. Right BKA. no issues DVT prophylaxis: Araseliqumarion Pt evden Need for inpt: awaiting placement Quality Stroke Does the patient have a stroke diagnosis?: No VTE Prior VTE?: No VTE Risk Level:: Medical - moderate - high VTE Device Contraindication: Treatment Not Indicated VTE Drug Contraindication: N/A - Med Ordered
[2024-11-18 10:23] LABS: Hematocrit 30.4 % (42.0-52.0); Hemoglobin 9.5 g/dl (14.0-18.0); Mean Corpuscular HGB Conc 31.3 g/dl (31.0-36.0); Mean Corpuscular Volume 86.4 fL (80.0-98.0); Mean Platelet Volume 10.4 fL (9.4-12.4); Platelet Count 411 X10*3/uL (160-400); Red Blood Count 3.52 X10*6/uL (4.60-5.80); Red Cell Distribution Width 15.7 % (11.0-16.0); White Blood Count 15.3 X10*3/uL (4.8-10.8)
[2024-11-18] MEDS: Multivitamin TABLET 1 TAB PO (10:29)
[2024-11-18] MEDS: Torsemide 20 MG TABLET 80 MG PO ×2 (10:29→17:02)
[2024-11-18] MEDS: Midodrine HCl 5 MG TABLET PO ×2 (10:29→17:02)
[2024-11-18] MEDS: calcitrioL 0.25 MCG CAPSULE 0.5 MCG PO (10:29)
[2024-11-18] MEDS: Amiodarone HCL 200 MG TABLET PO (10:29)
[2024-11-18] MEDS: Apixaban 5 MG TABLET PO ×2 (10:29→21:06)
[2024-11-18] MEDS: Metoprolol Succinate ER 50 MG TAB.ER.24H PO (10:30)
[2024-11-18] MEDS: Insulin Glargine,Hum.rec.anlog 100 UNIT/ML 10 ML VIAL 10 UNIT SUBCUT (10:30)
[2024-11-18] MEDS: Buprenorphine/Naloxone 8/2 mg FILM 1 FILM SUBLINGUAL ×3 (10:31→21:06)
[2024-11-18 10:39] LABS: Anion Gap 12 (12-20); Blood Urea Nitrogen 31 mg/dL (9-16); Calcium 8.8 mg/dL (8.4-10.2); Carbon Dioxide 19 mmol/L (22-29); Chloride 102 mmol/L (96-108); Creatinine Clr Calc Pharmacy 26.3; Estimated Glomerular Filt Rate 19; Glucose Random 206 mg/dL (60-115); Potassium 3.2 mmol/L (3.3-5.1); Sodium 130 mmol/L (135-145)
[2024-11-18 11:55] VITALS: BP 114/58; PULSE 83; RESP 19; TEMP 36.2; O2SAT 96
[2024-11-18 11:55] LABS: Glucose, Whole Blood 311 mg/dL (60-115)
[2024-11-18] MEDS: Insulin Lispro 100 UNIT/ML 3 ML VIAL SUBCUT ×3 (12:06→21:06)
--- NOTE | 2024-11-18 13:18 | MHC.CM.PN ---
Addendum entered by Suri Garcia RN 11/18/24 16:04: CM RECEIVED MESSAGE FROM [facility] REPORTING THEY WILL PROVIDE SN/PT FOR PT, ANTIC DC TOMORROW AFTER DIALYSIS, CM WILL CONTACT WOUND CLINIC PRIOR TO PT'S DC. Original Note: EMR REVIEWED, PT CONT'S TO HAVE NO STR BED OFFERS, PER HOSPITALIST PT WOULD LIKE TO RETURN HOME W/MOM HOWEVER WILL NEED [facility] FOR WOUND CARE [id number] AND NEW WOUND CLINIC [facility] (AND PT), CM HAS EXPANDED VNA REFERRAL PREVIOUS [facility] WILL NOT TAKE PT BACK D/T NONCOMPLIANCE, CM AWAITING OFFER, CM WILL CONT TO FOLLOW DC NEEDS.
[2024-11-18] MEDS: Collagenase Clostridium Hist. 30 GM TUBE 1 APPL TOPICAL ×2 (13:21→21:10)
[2024-11-18 15:42] VITALS: BP 108/55; PULSE 83; RESP 21; TEMP 36.8; O2SAT 98
[2024-11-18 16:19] LABS: Glucose, Whole Blood 268 mg/dL (60-115)
--- NOTE | 2024-11-18 16:20 | HO.WOUND ---
Wound Consult: Follow up Today wounds were assessed and re-dressed with current topical recommendations in place. Of note the groin remain improving and the buttock is improving however the coccyx area is revealing depth to the wound bed and the right hip and back wounds have progressed to either contain eschar or remain with thickened leather like eschar. The patient was able to tolerate todays dressing changes with PRN pain medication given by direct care nurse see MAR for details. At this time it appears the patient may be able to tolerate some bedside debridement. TT to Dr. Cooper with concern for wounds and to consult surgery for bedside debridement. At this time all topical interventions remain the same no changes at this time. See photos below for details. The patient remains with irregular dark purpura in various areas not consisitent with pressure injury, etiology remain unknown. The patient reports he will be discharging to home, he reports he will have a VNA nurse that will be able to provide wound care. There is concern for readmission without services in place. I had a discussion with the patient and his nther of expanding his search for a facility to help get him stronger and the wounds further along and then return home. His mother agrees there is concern for his return home and him returning to smoking and poor eating habits and refusing care. The patient refused to entertain a facility further and local facilities even if that meant him going to home with limited services. Direct care nurse aware of concerns and reports provider and team are aware of limitations to discharging home. Coccyx and Buttock Back Side Right Heel Bilateral Groin Right Groin Right Hip Right Thigh Details from previous notes: Of note there is some improvement in the adherent slough and eschar areas. No new photos or measurements taken today. Extreme pain still remains but erythema has small improvement to periwound. No new topical orders needed at this time. Will continue to monitor. Direct care nurse will reach out to provider regarding pain control in plans for d/c as patient has a difficult time with pain control during dressing changes. Patient did tolerate better today given he was medicated just prior to dressing changes with IV pain meds by the direct care nurse see MAR for details. There are 10 wounds/dressings in total this is difficult for the patient to tolerate all at once - discussed with direct care nurse to consider spreading out over day and phone screener which would benefit patient due to pain control. Previous assessment details: 44yr old Male admitted to [facility] on 11/05/24- See progress notes and H&P for detailed history.? Wound consult Follow up for Sacrococcygeal, Bilateral Groin, Right Thigh, Right Hip, Left Heel and Right Flank wounds POA.? See Chart for review of recent admission. Patient agreeable to assessment and photo documentation - he reports significant pain when cleansing. Mom present at bedside and patient provided permission to have mom stay - discussed with mom concerns for care at home - she reports she is unable to care for the patient at the current state. She reports the patient is often refusing to get cleaned and care provided. I informed the patient his refusal for care has a direct correlation to his wound progression and development. We again discussed allowing turns and repositions to aid in healing. TT with Dr. Araya today regarding concerns for wounds in various stages of healing and approach towards healing. He is in agreement with Santyl for Enzymatic debridement at this time since he is not a candidate for bedside or surgical debridement. TT to Dr. Covington with concerns for care at home and concerns for various wounds - he reports he will follow up with case mgt for care options. Bilateral Groin 11/08/24 Right Groin 11/10/24 Right Inferior site - stable black dry firm eschar - 4.5cm x2cm x 0.2cmPaint with Betadine and keep dry. Left Groin 11/10/24 Etiology: ?MASD (Moisture Associated Skin Damage) Left Groin 3cm x 3cm x 0.4cm Right Groin 10.5cm x 6.5cm x 0.3cm Wound Bed: Full thickness tissue injury - scattered adherent yellow slough red pink erythema and with moist desquamation noted Drainage / Odor: mild Odor noted flowers yellow drainage noted Edges: ? irregular Corazon wound: ?red erythema and firm induration noted - MASD no fluctuance noted Goals of Treatment: ? Santly for enzymatic debridement switched from Durafiber AG 11/08/24 11/09/24 (Slight improvement in periwound noted 24hr post Triad initiated - No new topical recommendations needed) Sacrococcygeal (Sacrum, Coccyx, and Buttock) 9cm x 6cm x 0.3cm Etiology: ?Unstagable Pressure injury -?Present on Admission Wound Bed: Full thickness tissue loss with adherent yellow white slough Drainage / Odor: yellow flowers - mild odor noted Edges: ? irregular Corazon wound: MASD and friction Pain: pain reported Goals of Treatment: ?Triad at this time - will talk with provider regarding Santyl for enzymatic debridement Do not use foam use as this may be trapping moisture to wound bed - recommend Triad and ABD pad for secondary dressing if needed. Of importance the patient and I had a sandra discussion regarding refusing care and interventions. Patient denies refusals but states cleansing and repositions hurt. We discussed the benefits of cleansing and turning and repositions and the consequences of wound worsening if refusals continue - he reports understanding and at this time reports he will be agreeable to repositions and cleansing after incontinence. The patient over night was switched to a Agility Pulsate bed which will benefit the patients skin and wounds. 11/08/24 11/09/24 Midline Back - Etiology unknown - Presentation not consistent with Deep Tissue Injury - Dark purple maroon purpura noted throughout his body. 8cm x 4cm x 0.1cm Recommend protect from friction with xeroform and ABD dry dressing. Epidermal lifting noted suspect will open. 11/09/24 Left Hip - Etiology unknown - Presentation not consistent with Deep Tissue Injury - Dark purple maroon purpura noted throughout his body. 1cm x 1cm Recommend protect from friction with foam dressing and or skin prep. 11/08/24 11/09/24 Left Heel Etiology: ?Unstagable Pressure injury -?Present on Admission 1cm x 1.2cm x 0.3cm Wound Bed: Full thickness tissue loss adherent necrotic tissue black brown and flowers Drainage / Odor: yellow flowers - mild odor noted Edges: ? irregular macerated and thickly callused Corazon wound: maroon nonblanchable tissue Pain: pain reported Goals of Treatment: Switched from?Triad to Santyl for enzymatic debridement Right Anterior Thigh - Etiology unknown - Location not consistent with Pressure - Adherent necrotic leather like tissue no induration no fluctance noted. 10cm x 4cm x 0.3cm Switched from Triad to Santyl for enzymatic debridement. Right Hip - Unstageable Pressure injury - Adherent necrotic leatherlife tissue no induration slight fluctance noted. 11.5cm x 8cm x 0.2cm Switched from Triad to Santyl for enzymatic debridement. Periwound noted for irregular purpura not consistent with DTI. Right Flank sites with adherent yellow slought noted 1cm x 2cm x 0.2cm - Triad and foam dressing applied. Agility Pulsate bed in use. Recommendations: 1. Turn and Reposition every 2 hours and as needed for patient comfort.? Use pillows or wedges to support off loading positions. 2. Off Load all bony prominences with use of pillows and heel boots if needed.? Apply Preventative foams where needed. ? 3. Monitor for incontinence and moisture control, use barrier creams when needed for prevention and treatment. Recommend Condom cath for urinary containment as patient is incontinent of urine at times. 4. Provide adequate and supplemental nutrition.? 5. Continue Pulsate from Agility bed. 6. Maintain blood glucose levels per Providers order. 7. Scrotum and Sacrum and Coccyx Buttock- Off Load Pressure with Q2hr turns and use of pillows. Cleanse with PH balance spray or wipes, pat dry. ?Apply thin layer of Triad to wound bed - only pat and dab no scrub and rub when soiling occurs. Reapply thin layer PRN after each episode of incontinence. Do not use foam dressing at this time. 8. Left Heel, Right Hip, Right Thigh and bilateral groin - Cleanse with Stacie Plymouth and NS moist gauze, pat dry. Apply Triad to periwound, apply thick layer of Santyl to entire wound bed, cover with gauze, ABD dressing, change Daily. 9. Mid Back - Gently cleanse with NS moist gauuze, pat dry. Apply skin prep allow to dry. Cover wound bed with thin single layer of xeroform and ABD pad. Change daily. Recommend follow up out patient Wound Clinic at [address] [place] [id number] and to call for an appointment at time of discharge. [phone].? Re-consult wound care Nurse for wound deterioration or wound changes.
--- NOTE | 2024-11-18 16:48 | P.PNGS_ITS ---
Subjective Subjective Date of Service: 11/18/24 Interval history: Patient re-evaluated for right groin and thigh wound as well as left foot wounds. He reports sharp pain when all 3 areas are palpated. Physical Exam 2 Vital Signs: Vital Signs: Last Vital Signs Temp 98.2 F 11/18/24 15:42 Pulse 83 11/18/24 15:42 Resp 21 H 11/18/24 15:42 BP 108/55 L 11/18/24 15:42 Pulse Ox 98 11/18/24 15:42 O2 Del Method Room Air 11/18/24 15:42 O2 Flow Rate 2 11/17/24 23:41 Oxygen Flow Rate 4 11/05/24 04:40 BMI result Body Mass Index 27.1 Const: General: no acute distress Nutritional Appearance: well nourished Orientation/consciousness: patient oriented x3 Resp: Effort & Inspection: normal respiratory effort GI: Abdomen image: 1. Right groin wound with a combination of granulation tissue and some surrounding necrotic skin at the margins. Wounds covered with white cream. Skin: Other: Multiple skin wounds and extremities, buttock and groins. The right groin wound overall is slightly improved but still quite tender to palpation. Neuro: General: patient oriented x3 Extrem: Upper/lower leg/hip images: 1. Cadaveric skin measuring approximately 3 x 2 cm lateral right thigh. 2. Right BKA 3. Left transmetatarsal amputation with callus skin involving the plantar and ventral surfaces. Objective Data Active Medications Acetaminophen (Acetaminophen 325 Mg Tablet) 650 mg PO Q6H PRN PRN Reason: Pain, Mild 1-3,fever,headache Last Admin: 11/14/24 16:13 Dose: 650 mg Documented By: KIM Al Hydroxide/Mg Hydroxide (Magnesium Hydrox/Alum Hydrox 30 Ml Oral.Susp) 30 ml PO Q4H PRN PRN Reason: Heartburn Albuterol Sulfate (Albuterol Sulfate 90 Mcg 8 Gm Inhaler) 1 puff INHALE RQ6H PRN PRN Reason: Shortness of Breath/Wheezing Last Admin: 11/08/24 22:58 Dose: 1 puff Documented By: NICOLAS Amiodarone HCl (Amiodarone Hcl 200 Mg Tablet) 200 mg PO DAILY LYSSA Last Admin: 11/18/24 10:29 Dose: 200 mg Documented By: KEN Apixaban (Apixaban 5 Mg Tablet) 5 mg PO BID [facility] Last Admin: 11/18/24 10:29 Dose: 5 mg Documented By: KEN Atorvastatin Calcium (Atorvastatin Calcium 40 Mg Tablet) 40 mg PO BEDTIME [facility] Last Admin: 11/17/24 21:17 Dose: 40 mg Documented By: NYA Buprenorphine/Naloxone (Buprenorphine/Naloxone 8/2 Mg Film) 1 film SUBLINGUAL TID [facility] Last Admin: 11/18/24 14:54 Dose: 1 film Documented By: KEN Calcitriol (Calcitriol 0.25 Mcg Capsule) 0.5 mcg PO DAILY [facility] Last Admin: 11/18/24 10:29 Dose: 0.5 mcg Documented By: KEN Calcium Acetate (Calcium Acetate 667 Mg Capsule) 1,334 mg PO TIDWM [facility] Last Admin: 11/18/24 12:16 Dose: 1,334 mg Documented By: KEN Calcium Carbonate (Calcium Carbonate 750 Mg Tab.Chew) 750 mg PO Q4H PRN PRN Reason: Heartburn Collagenase (Collagenase Clostridium Hist. 30 Gm Tube) 1 appl TOPICAL BID [facility]; Protocol Last Admin: 11/18/24 13:21 Dose: 1 appl Documented By: KEN Glucose (Glucose Gel 15 Gm Gel..Gram.) 15 gm PO Q15M PRN; Protocol PRN Reason: per Hypoglycemia Standing Ord. Dextrose (D10) 250 mls @ 750 mls/hr IV Q15M PRN; Protocol PRN Reason: per Hypoglycemia Standing Ord. Vancomycin HCl 500 mg/ Sodium (Chloride) 110 mls @ 110 mls/hr IV [id number]@1800 [facility] Insulin Glargine (Insulin Glargine,Hum.Rec.Anlog 100 Unit/Ml 10 Ml Vial) 10 unit SUBCUT DAILY [facility] Last Admin: 11/18/24 10:30 Dose: 10 unit Documented By: KEN Insulin Human Lispro (Insulin Lispro 100 Unit/Ml 3 Ml Vial) 0 unit SUBCUT QIDACHS [facility]; Protocol Last Admin: 11/18/24 12:06 Dose: 10 unit Documented By: KEN Levofloxacin (Levofloxacin 500 Mg Tablet) 500 mg PO Q48H [facility] Last Admin: 11/16/24 20:36 Dose: 500 mg Documented By: NYA Loperamide HCl (Loperamide Hcl 2 Mg Capsule) 4 mg PO Q4H PRN PRN Reason: Diarrhea Last Admin: 11/16/24 15:53 Dose: 4 mg Documented By: LÓPEZ Magnesium Hydroxide (Milk Of Magnesia 30 Ml Oral.Susp) 30 ml PO DAILY PRN PRN Reason: Constipation Melatonin (Melatonin 3 Mg Tablet) 6 mg PO BEDTIME PRN PRN Reason: Insomnia Metoprolol Succinate (Metoprolol Succinate Er 50 Mg Tab.Er.24h) 50 mg PO DAILY [facility]; Protocol Last Admin: 11/18/24 10:30 Dose: 50 mg Documented By: KEN Midodrine (Midodrine Hcl 5 Mg Tablet) 5 mg PO BIDWM [facility] Last Admin: 11/18/24 10:29 Dose: 5 mg Documented By: KEN Morphine Sulfate (Morphine Sulfate 2 Mg/Ml Cartridge) 2 mg IVPUSH Q4H PRN; Protocol PRN Reason: Pain, Severe (Pain Scale 7-10) Last Admin: 11/18/24 13:17 Dose: 2 mg Documented By: KEN Comments: MD order to give dose early , before extensive dressing changes Multivitamins/Vitamin C (Multivitamin Tablet) 1 tab PO DAILY [facility] Last Admin: 11/18/24 10:29 Dose: 1 tab Documented By: KEN Omeprazole (Omeprazole 20 Mg Capsule.) 20 mg PO DAILY@0630 [facility] Last Admin: 11/18/24 06:45 Dose: 20 mg Documented By: NYA Ondansetron HCl (Ondansetron Hcl 4 Mg/2 Ml Vial) 4 mg IVPUSH Q8H PRN PRN Reason: Nausea and Vomiting Oxycodone HCl (Oxycodone Hcl Immed Release 5 Mg Tablet) 10 mg PO Q4H PRN PRN Reason: Pain, Moderate(Pain Scale 4-6) Last Admin: 11/18/24 12:10 Dose: 10 mg Documented By: KEN Polyethylene Glycol (Polyethylene Glycol 3350 17 Gm Powd.Pack) 17 gm PO DAILY PRN PRN Reason: Constipation Sodium Chloride (0.9 % Sodium Chloride Flush 3 Ml Syringe) 3 ml IVFLUSH QSHIFT [facility] Last Admin: 11/18/24 10:38 Dose: 3 ml Documented By: KEN Torsemide (Torsemide 20 Mg Tablet) 80 mg PO BIDWM [facility]; Protocol Last Admin: 11/18/24 10:29 Dose: 80 mg Documented By: KEN Labs 11/18/24 10:06 11/18/24 10:06 Labs: Laboratory Results - last 24 hr 11/17/24 11/17/24 11/18/24 19:04 20:28 07:19 MCV MCH MCHC RDW Plt Count MPV Absolute Nucleated RBC Nucleated RBC % (auto) Anion Gap Estim Creat Clear Calc Estimated GFR POC Glucose 360 H* 133 H Random Glucose Calcium Random Vancomycin 10.3 L Blood Type Antibody Screen 11/18/24 11/18/24 11/18/24 10:06 11:52 16:14 MCV 86.4 MCH 27.0 MCHC 31.3 RDW 15.7 Plt Count 411 H MPV 10.4 Absolute Nucleated RBC 0.000 Nucleated RBC % (auto) 0.0 Anion Gap 12 Estim Creat Clear Calc 26.3 Estimated GFR 19 POC Glucose 311 H 268 H Random Glucose 206 H Calcium 8.8 D Random Vancomycin Blood Type O Positive Antibody Screen NEGATIVE Procedures Date of Service Date of Service: 11/18/24 Progress Note: A&P Assessment and plan (1) Diabetic ulcer of right foot: Status: Acute (2) Cellulitis: Status: Acute Plan 44-year-old male patient with multiple skin wounds including a patch of category skin located in the right lateral thigh as noted above, right groin wound as well as left foot callus all of which would benefit from debridement in the OR. I reviewed the procedure, risks, and alternatives and he consents to a debridement of right groin, right lateral thigh, and left foot wounds. He was on a Friday dialysis schedule. We will try to schedule for Friday after dialysis possible. Time Spent With Patient Time: Total time managing care of this patient today ____ minutes. Quality Stroke Does the patient have a stroke diagnosis?: No VTE Prior VTE?: No VTE Risk Level:: Medical - moderate - high VTE Device Contraindication: Treatment Not Indicated VTE Drug Contraindication: N/A - Med Ordered
[2024-11-18 19:34] VITALS: BP 116/55; PULSE 81; RESP 16; TEMP 36.2; O2SAT 98
[2024-11-18 20:58] LABS: Glucose, Whole Blood 234 mg/dL (60-115)
[2024-11-18] MEDS: levoFLOXacin 500 MG TABLET PO (20:59)
[2024-11-18] MEDS: Atorvastatin Calcium 40 MG TABLET PO (21:06)
[2024-11-18 23:31] VITALS: BP 105/55; PULSE 81; RESP 16; TEMP 36.8; O2SAT 100
[2024-11-19 03:39] VITALS: BP 108/57; PULSE 76; RESP 16; TEMP 36.2; O2SAT 100
[2024-11-19] MEDS: Omeprazole 20 MG CAPSULE.DR PO (05:49)
[2024-11-19] MEDS: oxyCODONE HCl Immed Release 5 MG TABLET 10 MG PO ×4 (05:49→18:59)
[2024-11-19 07:12] VITALS: BP 99/54; PULSE 76; RESP 18; TEMP 36.3; O2SAT 100
[2024-11-19 07:22] LABS: Glucose, Whole Blood 122 mg/dL (60-115)
[2024-11-19] MEDS: Buprenorphine/Naloxone 8/2 mg FILM 1 FILM SUBLINGUAL ×3 (08:41→21:14)
[2024-11-19] MEDS: Collagenase Clostridium Hist. 30 GM TUBE 1 APPL TOPICAL ×2 (08:41→21:22)
[2024-11-19 08:45] VITALS: BP 97/54
[2024-11-19] MEDS: Torsemide 20 MG TABLET 80 MG PO ×2 (08:45→18:07)
[2024-11-19] MEDS: calcitrioL 0.25 MCG CAPSULE 0.5 MCG PO (08:47)
[2024-11-19] MEDS: 0.9 % Sodium Chloride Flush 3 ML SYRINGE IVFLUSH ×3 (08:47→21:14)
[2024-11-19 08:48] VITALS: BP 97/54
[2024-11-19] MEDS: Metoprolol Succinate ER 50 MG TAB.ER.24H PO (08:48)
[2024-11-19] MEDS: Midodrine HCl 5 MG TABLET PO ×2 (08:48→18:07)
[2024-11-19] MEDS: Multivitamin TABLET 1 TAB PO (08:48)
[2024-11-19] MEDS: Amiodarone HCL 200 MG TABLET PO (08:48)
[2024-11-19] MEDS: Insulin Glargine,Hum.rec.anlog 100 UNIT/ML 10 ML VIAL 12 UNIT SUBCUT (08:48)
[2024-11-19] MEDS: Calcium Acetate 667 MG CAPSULE 1334 MG PO ×3 (08:48→18:07)
[2024-11-19] MEDS: Apixaban 5 MG TABLET PO ×2 (08:48→21:14)
--- NOTE | 2024-11-19 08:56 | PC.NURSE ---
bp this morning 97/54(69). pt mentating at baseline and denies symptoms. per dr cramer, ok for pt to recieve his morning BP meds (given with midodrine dose).
[2024-11-19] MEDS: Loperamide HCl 2 MG CAPSULE 4 MG PO (09:26)
--- NOTE | 2024-11-19 09:30 | HO.PM.IMPN ---
Subjective Subjective Date of Service: 11/19/24 Interval History: No new issue, still c/o pain will need wound debridment next week Physical Exam Vital Signs: Vital Signs: Last Vital Signs Temp 97.4 F 11/19/24 07:12 Pulse 76 11/19/24 07:12 Resp 18 11/19/24 07:12 BP 97/54 L 11/19/24 08:48 Pulse Ox 100 11/19/24 07:12 O2 Del Method Room Air 11/19/24 07:12 O2 Flow Rate 2 11/19/24 03:39 Oxygen Flow Rate 4 11/05/24 04:40 BMI result Body Mass Index 27.1 General: AO X 3, no acute distress Resp: CTA bilateral CVS: S1,S2,RRR GI: +BS, NT, no distention Skin: Neuro: motor grossly intact Psych: appropriate affect Objective Data Active Medications Acetaminophen (Acetaminophen 325 Mg Tablet) 650 mg PO Q6H PRN PRN Reason: Pain, Mild 1-3,fever,headache Last Admin: 11/14/24 16:13 Dose: 650 mg Documented By: KIM Al Hydroxide/Mg Hydroxide (Magnesium Hydrox/Alum Hydrox 30 Ml Oral.Susp) 30 ml PO Q4H PRN PRN Reason: Heartburn Albuterol Sulfate (Albuterol Sulfate 90 Mcg 8 Gm Inhaler) 1 puff INHALE RQ6H PRN PRN Reason: Shortness of Breath/Wheezing Last Admin: 11/08/24 22:58 Dose: 1 puff Documented By: NICOLAS Amiodarone HCl (Amiodarone Hcl 200 Mg Tablet) 200 mg PO DAILY [facility] Last Admin: 11/19/24 08:48 Dose: 200 mg Documented By: KAM Apixaban (Apixaban 5 Mg Tablet) 5 mg PO BID [facility] Last Admin: 11/19/24 08:48 Dose: 5 mg Documented By: KAM Atorvastatin Calcium (Atorvastatin Calcium 40 Mg Tablet) 40 mg PO BEDTIME [facility] Last Admin: 11/18/24 21:06 Dose: 40 mg Documented By: CRISTIANO Buprenorphine/Naloxone (Buprenorphine/Naloxone 8/2 Mg Film) 1 film SUBLINGUAL TID [facility] Last Admin: 11/19/24 08:41 Dose: 1 film Documented By: KAM Calcitriol (Calcitriol 0.25 Mcg Capsule) 0.5 mcg PO DAILY [facility] Last Admin: 11/19/24 08:47 Dose: 0.5 mcg Documented By: KAM Calcium Acetate (Calcium Acetate 667 Mg Capsule) 1,334 mg PO TIDWM [facility] Last Admin: 11/19/24 08:48 Dose: 1,334 mg Documented By: KAM Calcium Carbonate (Calcium Carbonate 750 Mg Tab.Chew) 750 mg PO Q4H PRN PRN Reason: Heartburn Collagenase (Collagenase Clostridium Hist. 30 Gm Tube) 1 appl TOPICAL BID [facility]; Protocol Last Admin: 11/19/24 08:41 Dose: 1 appl Documented By: KAM Glucose (Glucose Gel 15 Gm Gel..Gram.) 15 gm PO Q15M PRN; Protocol PRN Reason: per Hypoglycemia Standing Ord. Dextrose (D10) 250 mls @ 750 mls/hr IV Q15M PRN; Protocol PRN Reason: per Hypoglycemia Standing Ord. Vancomycin HCl 500 mg/ Sodium (Chloride) 110 mls @ 110 mls/hr IV MoWeFr@1800 [facility] Insulin Glargine (Insulin Glargine,Hum.Rec.Anlog 100 Unit/Ml 10 Ml Vial) 12 unit SUBCUT DAILY [facility] Last Admin: 11/19/24 08:48 Dose: 12 unit Documented By: KAM Insulin Human Lispro (Insulin Lispro 100 Unit/Ml 3 Ml Vial) 0 unit SUBCUT QIDACHS [facility]; Protocol Last Admin: 11/19/24 07:45 Dose: Not Given Documented By: KAM Non-Admin Reason: poc out of range Levofloxacin (Levofloxacin 500 Mg Tablet) 500 mg PO Q48H [facility] Last Admin: 11/18/24 20:59 Dose: 500 mg Documented By: CRISTIANO Loperamide HCl (Loperamide Hcl 2 Mg Capsule) 4 mg PO Q4H PRN PRN Reason: Diarrhea Last Admin: 11/19/24 09:26 Dose: 4 mg Documented By: KAM Magnesium Hydroxide (Milk Of Magnesia 30 Ml Oral.Susp) 30 ml PO DAILY PRN PRN Reason: Constipation Melatonin (Melatonin 3 Mg Tablet) 6 mg PO BEDTIME PRN PRN Reason: Insomnia Metoprolol Succinate (Metoprolol Succinate Er 50 Mg Tab.Er.24h) 50 mg PO DAILY [facility]; Protocol Last Admin: 11/19/24 08:48 Dose: 50 mg Documented By: KAM Midodrine (Midodrine Hcl 5 Mg Tablet) 5 mg PO BIDWM [facility] Last Admin: 11/19/24 08:48 Dose: 5 mg Documented By: KAM Morphine Sulfate (Morphine Sulfate 2 Mg/Ml Cartridge) 2 mg IVPUSH Q4H PRN; Protocol PRN Reason: dressing changes Multivitamins/Vitamin C (Multivitamin Tablet) 1 tab PO DAILY [facility] Last Admin: 11/19/24 08:48 Dose: 1 tab Documented By: KAM Omeprazole (Omeprazole 20 Mg Capsule.Dr) 20 mg PO DAILY@0630 [facility] Last Admin: 11/19/24 05:49 Dose: 20 mg Documented By: CRISTIANO Ondansetron HCl (Ondansetron Hcl 4 Mg/2 Ml Vial) 4 mg IVPUSH Q8H PRN PRN Reason: Nausea and Vomiting Oxycodone HCl (Oxycodone Hcl Immed Release 5 Mg Tablet) 10 mg PO Q4H PRN PRN Reason: Pain, Moderate(Pain Scale 4-6) Last Admin: 11/19/24 08:45 Dose: 10 mg Documented By: KAM Polyethylene Glycol (Polyethylene Glycol 3350 17 Gm Powd.Pack) 17 gm PO DAILY PRN PRN Reason: Constipation Sodium Chloride (0.9 % Sodium Chloride Flush 3 Ml Syringe) 3 ml IVFLUSH QSHIFT [facility] Last Admin: 11/19/24 08:47 Dose: 3 ml Documented By: KAM Torsemide (Torsemide 20 Mg Tablet) 80 mg PO BIDWM [facility]; Protocol Last Admin: 11/19/24 08:45 Dose: 80 mg Documented By: KAM Labs 11/18/24 10:06 11/18/24 10:06 Labs: Laboratory Results - last 24 hr 11/18/24 11/18/24 11/18/24 10:06 11:52 16:14 MCV 86.4 MCH 27.0 MCHC 31.3 RDW 15.7 Plt Count 411 H MPV 10.4 Absolute Nucleated RBC 0.000 Nucleated RBC % (auto) 0.0 Anion Gap 12 Estim Creat Clear Calc 26.3 Estimated GFR 19 POC Glucose 311 H 268 H Random Glucose 206 H Calcium 8.8 D Blood Type O Positive Antibody Screen NEGATIVE 11/18/24 11/19/24 20:55 07:15 MCV MCH MCHC RDW Plt Count MPV Absolute Nucleated RBC Nucleated RBC % (auto) Anion Gap Estim Creat Clear Calc Estimated GFR POC Glucose 234 H 122 H Random Glucose Calcium Blood Type Antibody Screen Assessment and Plan (1) Anemia in chronic kidney disease (CKD): Status: Acute Plan 44 y/o man with past medical history significant for ESRD on HD (MWF), diabetes, polysubstance abuse, 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 Essentially no change, awaiting placement Septic shock likely multiple etiology, previous MRSA, abdominal and inner thigh cellulitis--shock resolved. -wound culture growing Klebsiel and Proteus--sensitive to ceftriaxone -Continue Vancomyin per prior MRSA bacteremia, end date November 17 was on Ceftriaxone/flagyl starting 11/08, changed to levoflox 11/09/23 ( wound culture also show pseudomonas.) Per ID recommendation ESRD--HD MWF (Nephrology following) Paroxysmal atrial flutter. Continue amiodarone, metoprolol and Eliquis. HypOtension--required vasopressors on presentation, continue Midodrine Elevated troponin, chronic. No chest pain. Likely secondary to end-stage renal disease. Acute on chronic anemia- iron levels low tibc,iron sats ,ferritin, folate and b12 seems fine. denies any gross bleeding or melena as per patient. s/p 4prbc this admission h/h has been stable moniter cbc History of drug abuse. Continue Suboxone. Addiction med consult. Pressure ulcer, nursing wound protocol -surgery consult noted- difficult constellation of skin wounds in an area not amenable to debridement, best treated with local wound care. wound care: Turn and Reposition every 2 hours and as needed for patient comfort.? Use pillows or wedges to support off loading positions. Off Load all bony prominences with use of pillows and heel boots if needed.? Apply Preventative foams where needed. ? Monitor for incontinence and moisture control, use barrier creams when needed for prevention and treatment. Recommend Condom cath for urinary containment as patient is incontinent of urine at times. Provide adequate and supplemental nutrition.? Continue Pulsate from Agility bed. Maintain blood glucose levels per Providers order. Scrotum and Sacrum and Coccyx Buttock- Off Load Pressure with Q2hr turns and use of pillows. Cleanse with PH balance spray or wipes, pat dry. ?Apply thin layer of Triad to wound bed - only pat and dab no scrub and rub when soiling occurs. Reapply thin layer PRN after each episode of incontinence. Do not use foam dressing at this time. Left Heel, Right Hip, Right Thigh and bilateral groin - Cleanse with Stacie [place] and NS moist gauze, pat dry. Apply Triad to periwound, apply thick layer of Santyl to entire wound bed, cover with gauze, ABD dressing, change Daily. Mid Back - Gently cleanse with NS moist gauuze, pat dry. Apply skin prep allow to dry. Cover wound bed with thin single layer of xeroform and ABD pad. Change daily. -see picture, surgery to do debridment in OR Type 2 diabetes mellitus, hypoglycemia this mornng -BG checks before meals at bedtime. -Insulin sliding scale and Lantus. Diabetic diet Hyperlipidemia. Continue atorvastatin. Right BKA. no issues DVT prophylaxis: Eliquis Pt eval Need for inpt: awaiting placement Quality Stroke Does the patient have a stroke diagnosis?: No VTE Prior VTE?: No VTE Risk Level:: Medical - moderate - high VTE Device Contraindication: Treatment Not Indicated VTE Drug Contraindication: N/A - Med Ordered
--- NOTE | 2024-11-19 12:10 | MHC.CLN ---
F/U PT WITH INCREASED NUTRITION NEEDS R/T PRESSURE INJURY PO INTAKE SLIGHTLY DOWN CONSUMING 50-100% DIET RX: 2000DM 2GM NA -APPROPRIATE PT RECEIVING ENSURE MAX BID TO PROMOTE WOUND HEALING SUPP PROVIDES 300KCALS, 60G PROTEIN CONTINUE TO MONITOR PO INTAKE AND ENCOURAGE SUPPLEMENTS AWAITING PLACEMENT
[2024-11-19 14:32] LABS: Glucose, Whole Blood 152 mg/dL (60-115)
[2024-11-19] MEDS: Insulin Lispro 100 UNIT/ML 3 ML VIAL SUBCUT ×3 (15:09→21:27)
[2024-11-19 15:14] VITALS: BP 98/55; PULSE 86; RESP 18; TEMP 36.4; O2SAT 99
--- NOTE | 2024-11-19 15:54 | MHC.CM.PN ---
EMR REVIEWED, PT W/EXTENSIVE WOUNDS, PER SURGICAL NOTE PLAN FOR PT TO REMAIN INPT OVER W/E AND WILL HAVE FURTHER DEBRIDEMENT IN THE OR ON WEDNESDAY 11/22 AFTER DIALYSIS, COMFORT PLUS FOLLOWING AND PT WILL NEED [facility]/FOLLOW-UP W/SURGEON, CM WILL CONT TO FOLLOW DC NEEDS.
[2024-11-19] MEDS: Morphine Sulfate 2 MG/ML CARTRIDGE IVPUSH (16:25)
[2024-11-19 18:04] LABS: Glucose, Whole Blood 277 mg/dL (60-115)
--- NOTE | 2024-11-19 18:52 | PC.NURSE ---
pt premedicated before wound care. all dressings changed at 1700.
[2024-11-19 19:16] VITALS: BP 100/52; PULSE 84; RESP 16; TEMP 37.1; O2SAT 97
[2024-11-19 19:59] LABS: Vancomycin Random 12.8 mcg/mL (15-20)
[2024-11-19 21:14] LABS: Glucose, Whole Blood 316 mg/dL (60-115)
[2024-11-19] MEDS: Atorvastatin Calcium 40 MG TABLET PO (21:14)
[2024-11-19] MEDS: vancomycin HCL 750 MG in 0.9 % Sodium Chloride 250 ML 265 MG IV (21:14)
[2024-11-20] VITALS (7 sets, daily range): BP systolic 96–103; BP diastolic 50–58; PULSE 77–86; RESP 16–20; TEMP 36.4–37.2; O2SAT 97–100
[2024-11-20] MEDS: oxyCODONE HCl Immed Release 5 MG TABLET 10 MG PO ×4 (00:06→23:40)
[2024-11-20 07:15] LABS: Glucose, Whole Blood 214 mg/dL (60-115)
[2024-11-20] MEDS: Omeprazole 20 MG CAPSULE.DR PO (07:42)
[2024-11-20] MEDS: Amiodarone HCL 200 MG TABLET PO (08:16)
[2024-11-20] MEDS: Multivitamin TABLET 1 TAB PO (08:16)
[2024-11-20] MEDS: Insulin Lispro 100 UNIT/ML 3 ML VIAL SUBCUT ×4 (08:16→20:32)
[2024-11-20] MEDS: Calcium Acetate 667 MG CAPSULE 1334 MG PO ×3 (08:16→16:40)
[2024-11-20] MEDS: Midodrine HCl 5 MG TABLET PO ×2 (08:16→16:40)
[2024-11-20] MEDS: Insulin Glargine,Hum.rec.anlog 100 UNIT/ML 10 ML VIAL 12 UNIT SUBCUT (08:16)
[2024-11-20] MEDS: Apixaban 5 MG TABLET PO ×2 (08:16→20:32)
[2024-11-20] MEDS: Metoprolol Succinate ER 50 MG TAB.ER.24H PO (08:17)
[2024-11-20] MEDS: calcitrioL 0.25 MCG CAPSULE 0.5 MCG PO (08:17)
[2024-11-20] MEDS: Buprenorphine/Naloxone 8/2 mg FILM 1 FILM SUBLINGUAL ×3 (08:17→20:32)
[2024-11-20] MEDS: Torsemide 20 MG TABLET 80 MG PO ×2 (08:17→16:39)
[2024-11-20] MEDS: Collagenase Clostridium Hist. 30 GM TUBE 1 APPL TOPICAL ×2 (08:21→21:24)
[2024-11-20] MEDS: 0.9 % Sodium Chloride Flush 3 ML SYRINGE IVFLUSH ×3 (08:24→20:32)
--- NOTE | 2024-11-20 10:43 | P.PNIM_ITS ---
Subjective Subjective Date of Service: 11/20/24 Interval History: No new issue, still c/o pain will need wound debridment next week Physical Exam 2 Vital Signs: Vital Signs: Last Vital Signs Temp 97.6 F 11/20/24 07:40 Pulse 77 11/20/24 07:40 Resp 18 11/20/24 07:40 BP 96/54 L 11/20/24 07:40 Pulse Ox 98 11/20/24 07:40 O2 Del Method Room Air 11/20/24 07:40 O2 Flow Rate 2 11/20/24 04:00 Oxygen Flow Rate 4 11/05/24 04:40 BMI result Body Mass Index 27.1 General: AO X 3, no acute distress Resp: CTA bilateral CVS: S1,S2,RRR GI: +BS, NT, no distention Skin: Neuro: motor grossly intact Psych: appropriate affect Objective Data Active Medications Acetaminophen (Acetaminophen 325 Mg Tablet) 650 mg PO Q6H PRN PRN Reason: Pain, Mild 1-3,fever,headache Last Admin: 11/14/24 16:13 Dose: 650 mg Documented By: KIM Al Hydroxide/Mg Hydroxide (Magnesium Hydrox/Alum Hydrox 30 Ml Oral.Susp) 30 ml PO Q4H PRN PRN Reason: Heartburn Albuterol Sulfate (Albuterol Sulfate 90 Mcg 8 Gm Inhaler) 1 puff INHALE RQ6H PRN PRN Reason: Shortness of Breath/Wheezing Last Admin: 11/08/24 22:58 Dose: 1 puff Documented By: NICOLAS Amiodarone HCl (Amiodarone Hcl 200 Mg Tablet) 200 mg PO DAILY [facility] Last Admin: 11/20/24 08:16 Dose: 200 mg Documented By: LÓPEZ Apixaban (Apixaban 5 Mg Tablet) 5 mg PO BID [facility] Last Admin: 11/20/24 08:16 Dose: 5 mg Documented By: LÓPEZ Atorvastatin Calcium (Atorvastatin Calcium 40 Mg Tablet) 40 mg PO BEDTIME [facility] Last Admin: 11/19/24 21:14 Dose: 40 mg Documented By: WESLEY Buprenorphine/Naloxone (Buprenorphine/Naloxone 8/2 Mg Film) 1 film SUBLINGUAL TID [facility] Last Admin: 11/20/24 08:17 Dose: 1 film Documented By: LÓPEZ Calcitriol (Calcitriol 0.25 Mcg Capsule) 0.5 mcg PO DAILY [facility] Last Admin: 11/20/24 08:17 Dose: 0.5 mcg Documented By: LÓPEZ Calcium Acetate (Calcium Acetate 667 Mg Capsule) 1,334 mg PO TIDWM [facility] Last Admin: 11/20/24 08:16 Dose: 1,334 mg Documented By: LÓPEZ Calcium Carbonate (Calcium Carbonate 750 Mg Tab.Chew) 750 mg PO Q4H PRN PRN Reason: Heartburn Collagenase (Collagenase Clostridium Hist. 30 Gm Tube) 1 appl TOPICAL BID [facility]; Protocol Last Admin: 11/20/24 08:21 Dose: 1 appl Documented By: LÓPEZ Glucose (Glucose Gel 15 Gm Gel..Gram.) 15 gm PO Q15M PRN; Protocol PRN Reason: per Hypoglycemia Standing Ord. Dextrose (D10) 250 mls @ 750 mls/hr IV Q15M PRN; Protocol PRN Reason: per Hypoglycemia Standing Ord. Vancomycin HCl 500 mg/ Sodium (Chloride) 110 mls @ 110 mls/hr IV MoWeFr@1800 [facility] Insulin Glargine (Insulin Glargine,Hum.Rec.Anlog 100 Unit/Ml 10 Ml Vial) 12 unit SUBCUT DAILY [facility] Last Admin: 11/20/24 08:16 Dose: 12 unit Documented By: LÓPEZ Insulin Human Lispro (Insulin Lispro 100 Unit/Ml 3 Ml Vial) 0 unit SUBCUT QIDACHS [facility]; Protocol Last Admin: 11/20/24 08:16 Dose: 4 unit Documented By: LÓPEZ Levofloxacin (Levofloxacin 500 Mg Tablet) 500 mg PO Q48H [facility] Last Admin: 11/18/24 20:59 Dose: 500 mg Documented By: CRISTIANO Loperamide HCl (Loperamide Hcl 2 Mg Capsule) 4 mg PO Q4H PRN PRN Reason: Diarrhea Last Admin: 11/19/24 09:26 Dose: 4 mg Documented By: CHELOYTOWSarthak Magnesium Hydroxide (Milk Of Magnesia 30 Ml Oral.Susp) 30 ml PO DAILY PRN PRN Reason: Constipation Melatonin (Melatonin 3 Mg Tablet) 6 mg PO BEDTIME PRN PRN Reason: Insomnia Metoprolol Succinate (Metoprolol Succinate Er 50 Mg Tab.Er.24h) 50 mg PO DAILY [facility]; Protocol Last Admin: 11/20/24 08:17 Dose: 50 mg Documented By: LÓPEZ Midodrine (Midodrine Hcl 5 Mg Tablet) 5 mg PO BIDWM [facility] Last Admin: 11/20/24 08:16 Dose: 5 mg Documented By: LÓPEZ Morphine Sulfate (Morphine Sulfate 2 Mg/Ml Cartridge) 3 mg IVPUSH Q4H PRN; Protocol PRN Reason: dressing changes Multivitamins/Vitamin C (Multivitamin Tablet) 1 tab PO DAILY [facility] Last Admin: 11/20/24 08:16 Dose: 1 tab Documented By: LÓPEZ Omeprazole (Omeprazole 20 Mg Capsule.Dr) 20 mg PO DAILY@0630 [facility] Last Admin: 11/20/24 07:42 Dose: 20 mg Documented By: WESLEY Ondansetron HCl (Ondansetron Hcl 4 Mg/2 Ml Vial) 4 mg IVPUSH Q8H PRN PRN Reason: Nausea and Vomiting Oxycodone HCl (Oxycodone Hcl Immed Release 5 Mg Tablet) 10 mg PO Q4H PRN PRN Reason: Pain, Moderate(Pain Scale 4-6) Last Admin: 11/20/24 08:17 Dose: 10 mg Documented By: LÓPEZ Polyethylene Glycol (Polyethylene Glycol 3350 17 Gm Powd.Pack) 17 gm PO DAILY PRN PRN Reason: Constipation Sodium Chloride (0.9 % Sodium Chloride Flush 3 Ml Syringe) 3 ml IVFLUSH QSHIFT [facility] Last Admin: 11/20/24 08:24 Dose: 3 ml Documented By: LÓPEZ Torsemide (Torsemide 20 Mg Tablet) 80 mg PO BIDWM [facility]; Protocol Last Admin: 11/20/24 08:17 Dose: 80 mg Documented By: LÓPEZ Labs 11/18/24 10:06 11/18/24 10:06 Labs: Laboratory Results - last 24 hr 11/19/24 11/19/24 11/19/24 14:29 18:01 19:11 POC Glucose 152 H 277 H Random Vancomycin 12.8 L 11/19/24 11/20/24 21:07 07:11 POC Glucose 316 H 214 H Random Vancomycin Assessment and Plan (1) Anemia in chronic kidney disease (CKD): Status: Acute Plan 44 y/o man with past medical history significant for ESRD on HD (MWF), diabetes, polysubstance abuse, 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 Essentially no change, awaiting placement and debridment next week Septic shock likely multiple etiology, previous MRSA, abdominal and inner thigh cellulitis--shock resolved. -wound culture growing Klebsiel and Proteus--sensitive to ceftriaxone -Continue Vancomyin per prior MRSA bacteremia, end date November 17 was on Ceftriaxone/flagyl starting 11/08, changed to levoflox 11/09/23 ( wound culture also show pseudomonas.) Per ID recommendation ESRD--HD MWF (Nephrology following) Paroxysmal atrial flutter. Continue amiodarone, metoprolol and Eliquis. HypOtension--required vasopressors on presentation, continue Midodrine Elevated troponin, chronic. No chest pain. Likely secondary to end-stage renal disease. Acute on chronic anemia- iron levels low tibc,iron sats ,ferritin, folate and b12 seems fine. denies any gross bleeding or melena as per patient. s/p 4prbc this admission h/h has been stable moniter cbc History of drug abuse. Continue Suboxone. Addiction med consult. Pressure ulcer, nursing wound protocol -surgery consult noted- difficult constellation of skin wounds in an area not amenable to debridement, best treated with local wound care. wound care: Turn and Reposition every 2 hours and as needed for patient comfort.? Use pillows or wedges to support off loading positions. Off Load all bony prominences with use of pillows and heel boots if needed.? Apply Preventative foams where needed. ? Monitor for incontinence and moisture control, use barrier creams when needed for prevention and treatment. Recommend Condom cath for urinary containment as patient is incontinent of urine at times. Provide adequate and supplemental nutrition.? Continue Pulsate from Agility bed. Maintain blood glucose levels per Providers order. Scrotum and Sacrum and Coccyx Buttock- Off Load Pressure with Q2hr turns and use of pillows. Cleanse with PH balance spray or wipes, pat dry. ?Apply thin layer of Triad to wound bed - only pat and dab no scrub and rub when soiling occurs. Reapply thin layer PRN after each episode of incontinence. Do not use foam dressing at this time. Left Heel, Right Hip, Right Thigh and bilateral groin - Cleanse with Stacie [place] and NS moist gauze, pat dry. Apply Triad to periwound, apply thick layer of Santyl to entire wound bed, cover with gauze, ABD dressing, change Daily. Mid Back - Gently cleanse with NS moist gauuze, pat dry. Apply skin prep allow to dry. Cover wound bed with thin single layer of xeroform and ABD pad. Change daily. -see picture, surgery to do debridment in [place] Type 2 diabetes mellitus, hypoglycemia this mornng -BG checks before meals at bedtime. -Insulin sliding scale and Lantus. Diabetic diet Hyperlipidemia. Continue atorvastatin. Right BKA. no issues DVT prophylaxis: Eliquis Pt eval Need for inpt: awaiting placement Quality Stroke Does the patient have a stroke diagnosis?: No VTE Prior VTE?: No VTE Risk Level:: Medical - moderate - high VTE Device Contraindication: Treatment Not Indicated VTE Drug Contraindication: N/A - Med Ordered
[2024-11-20 11:53] LABS: Glucose, Whole Blood 274 mg/dL (60-115)
[2024-11-20 16:35] LABS: Glucose, Whole Blood 281 mg/dL (60-115)
[2024-11-20] MEDS: Morphine Sulfate 2 MG/ML CARTRIDGE 3 MG IVPUSH (16:50)
--- NOTE | 2024-11-20 17:29 | PC.NURSE ---
Pt wound care per order. Assist primary RN. Pt tolerated very well. Multiple areas on back and Right hip with Escher, slough and granulation tissue. Surrounding tissue is red. Mod Drainage of serosanguineous fluid. No odor noted. Coccyx with slough tissue and right buttock with granulation tissue. Mod serosanguineous drainage noted. No odor. Left Heel with eschar, no drainage noted. Bilateral groins with escar, slough and granulation tissue with mod serosanguineous drainage, no odor.
[2024-11-20] MEDS: Loperamide HCl 2 MG CAPSULE 4 MG PO (17:44)
[2024-11-20 20:05] LABS: Glucose, Whole Blood 279 mg/dL (60-115)
[2024-11-20] MEDS: Atorvastatin Calcium 40 MG TABLET PO (20:32)
[2024-11-21] VITALS (9 sets, daily range): BP systolic 92–116; BP diastolic 50–59; PULSE 77–84; RESP 16–18; TEMP 36–36.8; O2SAT 97–100
[2024-11-21] MEDS: Omeprazole 20 MG CAPSULE.DR PO (06:06)
[2024-11-21 08:04] LABS: Glucose, Whole Blood 159 mg/dL (60-115)
[2024-11-21] MEDS: Insulin Glargine,Hum.rec.anlog 100 UNIT/ML 10 ML VIAL 12 UNIT SUBCUT (08:12)
[2024-11-21] MEDS: Insulin Lispro 100 UNIT/ML 3 ML VIAL SUBCUT ×4 (08:12→21:26)
[2024-11-21] MEDS: 0.9 % Sodium Chloride Flush 3 ML SYRINGE IVFLUSH ×3 (08:13→22:42)
[2024-11-21] MEDS: calcitrioL 0.25 MCG CAPSULE 0.5 MCG PO (08:13)
[2024-11-21] MEDS: Collagenase Clostridium Hist. 30 GM TUBE 1 APPL TOPICAL (08:14)
[2024-11-21] MEDS: Midodrine HCl 5 MG TABLET PO ×2 (08:14→17:02)
[2024-11-21] MEDS: Calcium Acetate 667 MG CAPSULE 1334 MG PO ×3 (08:14→17:02)
[2024-11-21] MEDS: Amiodarone HCL 200 MG TABLET PO (08:14)
[2024-11-21] MEDS: Multivitamin TABLET 1 TAB PO (08:14)
[2024-11-21] MEDS: Torsemide 20 MG TABLET 80 MG PO (08:14)
[2024-11-21] MEDS: Metoprolol Succinate ER 50 MG TAB.ER.24H PO (08:14)
[2024-11-21] MEDS: Apixaban 5 MG TABLET PO ×2 (08:14→21:27)
[2024-11-21] MEDS: Buprenorphine/Naloxone 8/2 mg FILM 1 FILM SUBLINGUAL ×3 (08:15→21:27)
[2024-11-21] MEDS: oxyCODONE HCl Immed Release 5 MG TABLET 10 MG PO ×4 (08:27→23:44)
--- NOTE | 2024-11-21 09:44 | P.PNIM_ITS ---
Subjective Subjective Date of Service: 11/21/24 Physical Exam 2 Vital Signs: Vital Signs: Last Vital Signs Temp 97.1 F 11/21/24 07:48 Pulse 79 11/21/24 07:48 Resp 16 11/21/24 07:48 BP 106/55 L 11/21/24 08:14 Pulse Ox 99 11/21/24 07:48 O2 Del Method Room Air 11/21/24 07:48 O2 Flow Rate 2 11/21/24 03:42 Oxygen Flow Rate 4 11/05/24 04:40 BMI result Body Mass Index 27.1 Objective Data Active Medications Acetaminophen (Acetaminophen 325 Mg Tablet) 650 mg PO Q6H PRN PRN Reason: Pain, Mild 1-3,fever,headache Last Admin: 11/14/24 16:13 Dose: 650 mg Documented By: KIM Al Hydroxide/Mg Hydroxide (Magnesium Hydrox/Alum Hydrox 30 Ml Oral.Susp) 30 ml PO Q4H PRN PRN Reason: Heartburn Albuterol Sulfate (Albuterol Sulfate 90 Mcg 8 Gm Inhaler) 1 puff INHALE RQ6H PRN PRN Reason: Shortness of Breath/Wheezing Last Admin: 11/08/24 22:58 Dose: 1 puff Documented By: NICOLAS Amiodarone HCl (Amiodarone Hcl 200 Mg Tablet) 200 mg PO DAILY [facility] Last Admin: 11/21/24 08:14 Dose: 200 mg Documented By: BIN Apixaban (Apixaban 5 Mg Tablet) 5 mg PO BID [facility] Last Admin: 11/21/24 08:14 Dose: 5 mg Documented By: BIN Atorvastatin Calcium (Atorvastatin Calcium 40 Mg Tablet) 40 mg PO BEDTIME [facility] Last Admin: 11/20/24 20:32 Dose: 40 mg Documented By: SHARA Buprenorphine/Naloxone (Buprenorphine/Naloxone 8/2 Mg Film) 1 film SUBLINGUAL TID [facility] Last Admin: 11/21/24 08:15 Dose: 1 film Documented By: BIN Calcitriol (Calcitriol 0.25 Mcg Capsule) 0.5 mcg PO DAILY [facility] Last Admin: 11/21/24 08:13 Dose: 0.5 mcg Documented By: BIN Calcium Acetate (Calcium Acetate 667 Mg Capsule) 1,334 mg PO TIDWM [facility] Last Admin: 11/21/24 08:14 Dose: 1,334 mg Documented By: BIN Calcium Carbonate (Calcium Carbonate 750 Mg Tab.Chew) 750 mg PO Q4H PRN PRN Reason: Heartburn Collagenase (Collagenase Clostridium Hist. 30 Gm Tube) 1 appl TOPICAL BID [facility]; Protocol Last Admin: 11/21/24 08:14 Dose: 1 appl Documented By: BIN Glucose (Glucose Gel 15 Gm Gel..Gram.) 15 gm PO Q15M PRN; Protocol PRN Reason: per Hypoglycemia Standing Ord. Dextrose (D10) 250 mls @ 750 mls/hr IV Q15M PRN; Protocol PRN Reason: per Hypoglycemia Standing Ord. Vancomycin HCl 500 mg/ Sodium (Chloride) 110 mls @ 110 mls/hr IV MoWeFr@1800 [facility] Insulin Glargine (Insulin Glargine,Hum.Rec.Anlog 100 Unit/Ml 10 Ml Vial) 12 unit SUBCUT DAILY [facility] Last Admin: 11/21/24 08:12 Dose: 12 unit Documented By: BIN Insulin Human Lispro (Insulin Lispro 100 Unit/Ml 3 Ml Vial) 0 unit SUBCUT QIDACHS [facility]; Protocol Last Admin: 11/21/24 08:12 Dose: 2 unit Documented By: BIN Loperamide HCl (Loperamide Hcl 2 Mg Capsule) 4 mg PO Q4H PRN PRN Reason: Diarrhea Last Admin: 11/20/24 17:44 Dose: 4 mg Documented By: BIN Magnesium Hydroxide (Milk Of Magnesia 30 Ml Oral.Susp) 30 ml PO DAILY PRN PRN Reason: Constipation Melatonin (Melatonin 3 Mg Tablet) 6 mg PO BEDTIME PRN PRN Reason: Insomnia Metoprolol Succinate (Metoprolol Succinate Er 50 Mg Tab.Er.24h) 50 mg PO DAILY [facility]; Protocol Last Admin: 11/21/24 08:14 Dose: 50 mg Documented By: BIN Midodrine (Midodrine Hcl 5 Mg Tablet) 5 mg PO BIDWM [facility] Last Admin: 11/21/24 08:14 Dose: 5 mg Documented By: BIN Morphine Sulfate (Morphine Sulfate 2 Mg/Ml Cartridge) 3 mg IVPUSH Q4H PRN; Protocol PRN Reason: dressing changes Last Admin: 11/20/24 16:50 Dose: 3 mg Documented By: BIN Multivitamins/Vitamin C (Multivitamin Tablet) 1 tab PO DAILY [facility] Last Admin: 11/21/24 08:14 Dose: 1 tab Documented By: BIN Omeprazole (Omeprazole 20 Mg Capsule.Dr) 20 mg PO DAILY@0630 [facility] Last Admin: 11/21/24 06:06 Dose: 20 mg Documented By: ZAIRE Ondansetron HCl (Ondansetron Hcl 4 Mg/2 Ml Vial) 4 mg IVPUSH Q8H PRN PRN Reason: Nausea and Vomiting Oxycodone HCl (Oxycodone Hcl Immed Release 5 Mg Tablet) 10 mg PO Q4H PRN PRN Reason: Pain, Moderate(Pain Scale 4-6) Last Admin: 11/21/24 08:27 Dose: 10 mg Documented By: BIN Polyethylene Glycol (Polyethylene Glycol 3350 17 Gm Powd.Pack) 17 gm PO DAILY PRN PRN Reason: Constipation Sodium Chloride (0.9 % Sodium Chloride Flush 3 Ml Syringe) 3 ml IVFLUSH QSHIFT [facility] Last Admin: 11/21/24 08:13 Dose: 3 ml Documented By: BIN Torsemide (Torsemide 20 Mg Tablet) 80 mg PO BIDWM [facility]; Protocol Last Admin: 11/21/24 08:14 Dose: 80 mg Documented By: BIN Labs 11/18/24 10:06 11/18/24 10:06 Labs: Laboratory Results - last 24 hr 11/20/24 11/20/24 11/20/24 11:47 16:30 19:53 POC Glucose 274 H 281 H 279 H 11/21/24 07:56 POC Glucose 159 H Assessment and Plan (1) Anemia in chronic kidney disease (CKD): Status: Acute Plan 44 y/o man with past medical history significant for ESRD on HD (MWF), diabetes, polysubstance abuse, 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 Essentially no change, awaiting placement and debridment next week Septic shock likely multiple etiology, previous MRSA, abdominal and inner thigh cellulitis--shock resolved. -wound culture growing Klebsiel and Proteus--sensitive to ceftriaxone -Continue Vancomyin per prior MRSA bacteremia, end date November 17 was on Ceftriaxone/flagyl starting 11/08, changed to levoflox 11/09/23 for 14 days( wound culture also show pseudomonas.) Per ID recommendation ESRD--HD MWF (Nephrology following) Paroxysmal atrial flutter. Continue amiodarone, metoprolol and Eliquis. HypOtension--required vasopressors on presentation, continue Midodrine Elevated troponin, chronic. No chest pain. Likely secondary to end-stage renal disease. Acute on chronic anemia- iron levels low tibc,iron sats ,ferritin, folate and b12 seems fine. denies any gross bleeding or melena as per patient. s/p 4prbc this admission h/h has been stable moniter cbc History of drug abuse. Continue Suboxone. Addiction med consult. Pressure ulcer, nursing wound protocol -surgery consult noted- difficult constellation of skin wounds in an area not amenable to debridement, best treated with local wound care. wound care: Turn and Reposition every 2 hours and as needed for patient comfort.? Use pillows or wedges to support off loading positions. Off Load all bony prominences with use of pillows and heel boots if needed.? Apply Preventative foams where needed. ? Monitor for incontinence and moisture control, use barrier creams when needed for prevention and treatment. Recommend Condom cath for urinary containment as patient is incontinent of urine at times. Provide adequate and supplemental nutrition.? Continue Pulsate from Agility bed. Maintain blood glucose levels per Providers order. Scrotum and Sacrum and Coccyx Buttock- Off Load Pressure with Q2hr turns and use of pillows. Cleanse with PH balance spray or wipes, pat dry. ?Apply thin layer of Triad to wound bed - only pat and dab no scrub and rub when soiling occurs. Reapply thin layer PRN after each episode of incontinence. Do not use foam dressing at this time. Left Heel, Right Hip, Right Thigh and bilateral groin - Cleanse with Stacie [place] and NS moist gauze, pat dry. Apply Triad to periwound, apply thick layer of Santyl to entire wound bed, cover with gauze, ABD dressing, change Daily. Mid Back - Gently cleanse with NS moist gauuze, pat dry. Apply skin prep allow to dry. Cover wound bed with thin single layer of xeroform and ABD pad. Change daily. -see picture, surgery to do debridment in OR Type 2 diabetes mellitus, hypoglycemia this mornng -BG checks before meals at bedtime. -Insulin sliding scale and Lantus. Diabetic diet Hyperlipidemia. Continue atorvastatin. Right BKA. no issues DVT prophylaxis: Eliquis Pt eval Need for inpt: awaiting placement Quality Stroke Does the patient have a stroke diagnosis?: No VTE Prior VTE?: No VTE Risk Level:: Medical - moderate - high VTE Device Contraindication: Treatment Not Indicated VTE Drug Contraindication: N/A - Med Ordered
[2024-11-21] MEDS: levoFLOXacin 500 MG TABLET PO (10:22)
[2024-11-21 11:50] LABS: Glucose, Whole Blood 192 mg/dL (60-115)
[2024-11-21] MEDS: Morphine Sulfate 2 MG/ML CARTRIDGE 3 MG IVPUSH ×2 (12:24→21:25)
--- NOTE | 2024-11-21 13:04 | P.CDIM_ITS ---
PROVIDER RESPONSE TEXT: To clarify, the appropriate diagnosis supported by the clinical indicators: Acute on chronic anemia: acute on chronic anemia QUERY TEXT: PHYSICIAN'S DOCUMENTATION REQUEST Date of Query: 11/18/2024 10:07 AM EST Patient Name: SOLOMON NARANJO Admit Date: 11/05/2024 Dear Harley Cooper MD, A review of the medical record indicates additional documentation may be needed. Please review below and update the documentation accordingly. Clinical Indicators: Acute on chronic anemia Iron levels low LABS: Iron 19 L 5 units PRBC transfused during stay. monitor cbc Based on the above, could you clarify which of the following is the most likely type of anemia you ar e evaluating, treating, and/or monitoring? Anemia iron deficiency anemia secondary to chronic blood loss, iron deficiency anemia secondary to acute on chronic blood loss, Iron deficiency anemia possible, probable, etc. Acute on chronic anemia due to other source, if known, please specify Other (explain) Clinically unable to determine (explain) Thank you, Keely Jalloh, CCS, CDIS Use of terms such as suspected, likely, concern for, or probable (associated with a specific diagnosi s that is being evaluated, monitored, or treated as if it exists) are acceptable and can be coded in the inpatient se tting, when documented at the time of discharge. Please use your independent medical judgment in providing your response. THIS QUERY IS PART OF THE PERMANENT MEDICAL RECORD
--- NOTE | 2024-11-21 13:09 | PC.NURSE ---
Pt wound care per order. Assist primary RN. Pt tolerated very well. Multiple areas on back and Right hip with Escher, slough and granulation tissue. Surrounding tissue is red. Small Drainage of serosanguineous fluid. No odor noted. Coccyx with slough tissue and right buttock with granulation tissue. Small serosanguineous drainage noted. No odor. Left Heel with eschar, granulation tissue, small drainage noted. No Odor. Bilateral groins with escar, slough and granulation tissue with large serosanguineous drainage, tao wound red, no odor.
[2024-11-21 16:38] LABS: Glucose, Whole Blood 267 mg/dL (60-115)
[2024-11-21 20:44] LABS: Glucose, Whole Blood 180 mg/dL (60-115)
[2024-11-21] MEDS: Atorvastatin Calcium 40 MG TABLET PO (21:27)
[2024-11-22 03:34] VITALS: BP 93/53; PULSE 80; RESP 18; TEMP 36.6; O2SAT 99
[2024-11-22] MEDS: Morphine Sulfate 2 MG/ML CARTRIDGE 3 MG IVPUSH ×2 (03:57→08:41)
[2024-11-22 05:04] VITALS: BP 99/52; PULSE 78
[2024-11-22] MEDS: oxyCODONE HCl Immed Release 5 MG TABLET 10 MG PO ×4 (06:58→23:37)
[2024-11-22 07:55] VITALS: BP 101/55; PULSE 76; RESP 16; TEMP 36.4; O2SAT 97
[2024-11-22 08:06] LABS: Glucose, Whole Blood 149 mg/dL (60-115)
[2024-11-22] MEDS: Midodrine HCl 5 MG TABLET PO ×2 (08:40→16:32)
[2024-11-22] MEDS: Buprenorphine/Naloxone 8/2 mg FILM 1 FILM SUBLINGUAL ×3 (08:40→20:14)
[2024-11-22] MEDS: Insulin Glargine,Hum.rec.anlog 100 UNIT/ML 10 ML VIAL 12 UNIT SUBCUT (08:40)
[2024-11-22] MEDS: 0.9 % Sodium Chloride Flush 3 ML SYRINGE IVFLUSH ×3 (08:43→20:35)
--- NOTE | 2024-11-22 09:24 | PC.NURSE ---
Patient scheduled for dialysis this AM. Dialysis nurse Sheila advised this RN to give pain medications, lantus and midodrine and hold all other medications at this time.
--- NOTE | 2024-11-22 10:50 | MHC.CM.PN ---
Per MD rounds patient not medically cleared for dc. Plan for OR/debridement tomorrow. DCP: Home w/ new SN/PT via [facility]. [facility] updated. CM will continue to follow.
[2024-11-22] MEDS: Apixaban 5 MG TABLET PO ×2 (10:56→20:11)
--- NOTE | 2024-11-22 11:58 | MHC.CLN ---
F/U PT WITH INCREASED NUTRITION NEEDS R/T PRESSURE INJURY PO INTAKE 75-100% DIET RX: 2000DM 2GM NA -APPROPRIATE PT RECEIVING ENSURE MAX BID TO PROMOTE WOUND HEALING SUPP PROVIDES 300KCALS, 60G PROTEIN CONTINUE TO MONITOR PO INTAKE AND ENCOURAGE SUPPLEMENTS
--- NOTE | 2024-11-22 13:49 | HO.PM.IMPN ---
Subjective Subjective Date of Service: 11/22/24 Interval History: No new issue, still c/o pain report usual pain, especially with debridment Physical Exam Vital Signs: Vital Signs: Last Vital Signs Temp 97.5 F 11/22/24 07:55 Pulse 76 11/22/24 07:55 Resp 16 11/22/24 07:55 BP 101/55 L 11/22/24 07:55 Pulse Ox 97 11/22/24 07:55 O2 Del Method Room Air 11/22/24 07:55 O2 Flow Rate 2 11/22/24 03:34 Oxygen Flow Rate 4 11/05/24 04:40 BMI result Body Mass Index 27.1 General: AO X 3, no acute distress Resp: CTA bilateral CVS: S1,S2,RRR GI: +BS, NT, no distention Skin: Neuro: motor grossly intact Psych: appropriate affect Objective Data Active Medications Acetaminophen (Acetaminophen 325 Mg Tablet) 650 mg PO Q6H PRN PRN Reason: Pain, Mild 1-3,fever,headache Last Admin: 11/14/24 16:13 Dose: 650 mg Documented By: KIM Al Hydroxide/Mg Hydroxide (Magnesium Hydrox/Alum Hydrox 30 Ml Oral.Susp) 30 ml PO Q4H PRN PRN Reason: Heartburn Albuterol Sulfate (Albuterol Sulfate 90 Mcg 8 Gm Inhaler) 1 puff INHALE RQ6H PRN PRN Reason: Shortness of Breath/Wheezing Last Admin: 11/08/24 22:58 Dose: 1 puff Documented By: NICOLAS Amiodarone HCl (Amiodarone Hcl 200 Mg Tablet) 200 mg PO DAILY [facility] Last Admin: 11/21/24 08:14 Dose: 200 mg Documented By: BIN Apixaban (Apixaban 5 Mg Tablet) 5 mg PO BID [facility] Last Admin: 11/22/24 10:56 Dose: 5 mg Documented By: KAI Atorvastatin Calcium (Atorvastatin Calcium 40 Mg Tablet) 40 mg PO BEDTIME [facility] Last Admin: 11/21/24 21:27 Dose: 40 mg Documented By: JOSÉ Buprenorphine/Naloxone (Buprenorphine/Naloxone 8/2 Mg Film) 1 film SUBLINGUAL TID [facility] Last Admin: 11/22/24 08:40 Dose: 1 film Documented By: GOKUL Calcitriol (Calcitriol 0.25 Mcg Capsule) 0.5 mcg PO DAILY [facility] Last Admin: 11/22/24 09:23 Dose: Not Given Documented By: GOKUL Non-Admin Reason: dialysis Calcium Acetate (Calcium Acetate 667 Mg Capsule) 1,334 mg PO TIDWM [facility] Last Admin: 11/22/24 12:49 Dose: Not Given Documented By: GOKUL Non-Admin Reason: Off unit: Dialysis Calcium Carbonate (Calcium Carbonate 750 Mg Tab.Chew) 750 mg PO Q4H PRN PRN Reason: Heartburn Collagenase (Collagenase Clostridium Hist. 30 Gm Tube) 1 appl TOPICAL BID [facility]; Protocol Last Admin: 11/21/24 21:32 Dose: Not Given Documented By: JOSÉ Non-Admin Reason: during day when dsg's changed Glucose (Glucose Gel 15 Gm Gel..Gram.) 15 gm PO Q15M PRN; Protocol PRN Reason: per Hypoglycemia Standing Ord. Dextrose (D10) 250 mls @ 750 mls/hr IV Q15M PRN; Protocol PRN Reason: per Hypoglycemia Standing Ord. Vancomycin HCl 500 mg/ Sodium (Chloride) 110 mls @ 110 mls/hr IV MoWeFr@1800 [facility] Insulin Glargine (Insulin Glargine,Hum.Rec.Anlog 100 Unit/Ml 10 Ml Vial) 12 unit SUBCUT DAILY [facility] Last Admin: 11/22/24 08:40 Dose: 12 unit Documented By: GOKUL Insulin Human Lispro (Insulin Lispro 100 Unit/Ml 3 Ml Vial) 0 unit SUBCUT QIDACHS [facility]; Protocol Last Admin: 11/22/24 12:23 Dose: Not Given Documented By: GOKUL Non-Admin Reason: Off unit: Dialysis Levofloxacin (Levofloxacin 500 Mg Tablet) 500 mg PO Q48H [facility] Stop: 11/24/24 09:59 Last Admin: 11/21/24 10:22 Dose: 500 mg Documented By: BIN Loperamide HCl (Loperamide Hcl 2 Mg Capsule) 4 mg PO Q4H PRN PRN Reason: Diarrhea Last Admin: 11/20/24 17:44 Dose: 4 mg Documented By: BIN Magnesium Hydroxide (Milk Of Magnesia 30 Ml Oral.Susp) 30 ml PO DAILY PRN PRN Reason: Constipation Melatonin (Melatonin 3 Mg Tablet) 6 mg PO BEDTIME PRN PRN Reason: Insomnia Metoprolol Succinate (Metoprolol Succinate Er 50 Mg Tab.Er.24h) 50 mg PO DAILY [facility]; Protocol Last Admin: 11/22/24 09:23 Dose: Not Given Documented By: GOKUL Non-Admin Reason: dialysis Midodrine (Midodrine Hcl 5 Mg Tablet) 5 mg PO BIDWM [facility] Last Admin: 11/22/24 08:40 Dose: 5 mg Documented By: GOKUL Morphine Sulfate (Morphine Sulfate 2 Mg/Ml Cartridge) 3 mg IVPUSH Q4H PRN; Protocol PRN Reason: Pain, Severe (Pain Scale 7-10) Last Admin: 11/22/24 08:41 Dose: 3 mg Documented By: GOKUL Multivitamins/Vitamin C (Multivitamin Tablet) 1 tab PO DAILY [facility] Last Admin: 11/22/24 08:53 Dose: Not Given Documented By: GOKUL Non-Admin Reason: Dialysis Omeprazole (Omeprazole 20 Mg Capsule.Dr) 20 mg PO DAILY@0630 [facility] Last Admin: 11/22/24 05:33 Dose: Not Given Documented By: JOSÉ Non-Admin Reason: NPO Ondansetron HCl (Ondansetron Hcl 4 Mg/2 Ml Vial) 4 mg IVPUSH Q8H PRN PRN Reason: Nausea and Vomiting Polyethylene Glycol (Polyethylene Glycol 3350 17 Gm Powd.Pack) 17 gm PO DAILY PRN PRN Reason: Constipation Sodium Chloride (0.9 % Sodium Chloride Flush 3 Ml Syringe) 3 ml IVFLUSH QSHIFT [facility] Last Admin: 11/22/24 08:43 Dose: 3 ml Documented By: GOKUL Torsemide (Torsemide 20 Mg Tablet) 80 mg PO BIDWM [facility]; Protocol Last Admin: 11/22/24 09:22 Dose: Not Given Documented By: GOKUL Non-Admin Reason: dialysis Labs 11/18/24 10:06 11/18/24 10:06 Labs: Laboratory Results - last 24 hr 11/21/24 11/21/24 11/22/24 16:21 20:38 08:00 POC Glucose 267 H 180 H 149 H Assessment and Plan (1) Anemia in chronic kidney disease (CKD): Status: Acute Plan 44 y/o man with past medical history significant for ESRD on HD (MWF), diabetes, polysubstance abuse, 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 Essentially no change, awaiting placement and debridment next week Septic shock likely multiple etiology, previous MRSA, abdominal and inner thigh cellulitis--shock resolved. -wound culture growing Klebsiel and Proteus--sensitive to ceftriaxone -Continue Vancomyin per prior MRSA bacteremia, completed treated was on Ceftriaxone/flagyl starting 11/08, changed to levoflox 11/09/23 for 14 days( wound culture also show pseudomonas.) Per ID recommendation ESRD--HD MWF (Nephrology following) Paroxysmal atrial flutter. Continue amiodarone, metoprolol and Eliquis. HypOtension--required vasopressors on presentation, continue Midodrine Elevated troponin, chronic. No chest pain. Likely secondary to end-stage renal disease. Acute on chronic anemia- iron levels low tibc,iron sats ,ferritin, folate and b12 seems fine. denies any gross bleeding or melena as per patient. s/p 4prbc this admission h/h has been stable moniter cbc and transfuse if hgb < 7 History of drug abuse. Continue Suboxone. Addiction med consult. Pressure ulcer, nursing wound protocol -surgery consult noted- difficult constellation of skin wounds in an area not amenable to debridement, best treated with local wound care. wound care: Turn and Reposition every 2 hours and as needed for patient comfort.? Use pillows or wedges to support off loading positions. Off Load all bony prominences with use of pillows and heel boots if needed.? Apply Preventative foams where needed. ? Monitor for incontinence and moisture control, use barrier creams when needed for prevention and treatment. Recommend Condom cath for urinary containment as patient is incontinent of urine at times. Provide adequate and supplemental nutrition.? Continue Pulsate from Agility bed. Maintain blood glucose levels per Providers order. Scrotum and Sacrum and Coccyx Buttock- Off Load Pressure with Q2hr turns and use of pillows. Cleanse with PH balance spray or wipes, pat dry. ?Apply thin layer of Triad to wound bed - only pat and dab no scrub and rub when soiling occurs. Reapply thin layer PRN after each episode of incontinence. Do not use foam dressing at this time. Left Heel, Right Hip, Right Thigh and bilateral groin - Cleanse with Stacie [place] and NS moist gauze, pat dry. Apply Triad to periwound, apply thick layer of Santyl to entire wound bed, cover with gauze, ABD dressing, change Daily. Mid Back - Gently cleanse with NS moist gauuze, pat dry. Apply skin prep allow to dry. Cover wound bed with thin single layer of xeroform and ABD pad. Change daily. -see picture, surgery to do debridment in OR tomorrow -morphine for dressing changes, oxycodone PRN for pain Type 2 diabetes mellitus, hypoglycemia this mornng -BG checks before meals at bedtime. -Insulin sliding scale and Lantus. Diabetic diet Hyperlipidemia. Continue atorvastatin. Right BKA. no issues DVT prophylaxis: Oscar Pt evden Need for inpt: awaiting placement spoke with mother Quality Stroke Does the patient have a stroke diagnosis?: No VTE Prior VTE?: No VTE Risk Level:: Medical - moderate - high VTE Device Contraindication: Treatment Not Indicated VTE Drug Contraindication: N/A - Med Ordered
--- NOTE | 2024-11-22 14:06 | W.PM.DNNEP ---
Subjective Subjective Date of Service: 11/22/24 This patient was seen during dialysis. Interval history: No new issue, still c/o pain report usual pain, especially with debridment Physical Exam Vital Signs: Vital Signs: Last Vital Signs Temp 97.5 F 11/22/24 07:55 Pulse 76 11/22/24 07:55 Resp 16 11/22/24 07:55 BP 101/55 L 11/22/24 07:55 Pulse Ox 97 11/22/24 07:55 O2 Del Method Room Air 11/22/24 07:55 O2 Flow Rate 2 11/22/24 03:34 Oxygen Flow Rate 4 11/05/24 04:40 BMI result Body Mass Index 27.1 Const: General: comfortable and no acute distress Orientation/consciousness: patient oriented x3 HEENT: Head: Yes normocephalic Mouth: Normal oral and palatal mucosa present Eyes: EOM: EOMs intact bilaterally Neck: Neck: Yes supple Resp: Auscultation: clear to auscultation bilaterally and diminished lung sounds Cardio: Jugular venous distension: no JVD Rate: regular rate GI: Palpation (GI): Soft to palpation Auscultation: normal bowel sounds Neuro: General: patient oriented x3 Extrem: Other: BKA Assessment & Plan Assessment and plan (1) ESRD (end stage renal disease) on dialysis: Status: Acute Plan Usually gets HD on MWF ( [facility]) Seen on HD; Continued vol optimization on HD Antibiotics as guided by ID Procrit [id number] as needed Renal Diet; Phos binder with meals; Shall F/U Time Spent With Patient Time: Total time managing care of this patient today ____ minutes. Procedures Date of Service Date of Service: 11/24/24
[2024-11-22 14:18] LABS: Hematocrit 33.1 % (42.0-52.0); Hemoglobin 10.6 g/dl (14.0-18.0); Mean Corpuscular Hemoglobin 26.4 pg (27.0-33.0); Mean Corpuscular Volume 82.5 fL (80.0-98.0); Mean Platelet Volume 10.4 fL (9.4-12.4); Platelet Count 426 X10*3/uL (160-400); Red Blood Count 4.01 X10*6/uL (4.60-5.80); Red Cell Distribution Width 15.4 % (11.0-16.0); White Blood Count 14.2 X10*3/uL (4.8-10.8)
[2024-11-22 14:28] LABS: Anion Gap 13 (12-20); Blood Urea Nitrogen 29 mg/dL (9-16); Calcium 8.9 mg/dL (8.4-10.2); Carbon Dioxide 24 mmol/L (22-29); Chloride 98 mmol/L (96-108); Creatinine Clr Calc Pharmacy 43.9; Estimated Glomerular Filt Rate 34; Glucose Random 198 mg/dL (60-115); Potassium 3.9 mmol/L (3.3-5.1); Sodium 131 mmol/L (135-145)
[2024-11-22 14:41] LABS: Vancomycin Random 12.7 mcg/mL (15-20)
[2024-11-22] MEDS: Morphine Sulfate 2 MG/ML CARTRIDGE 4 MG IVPUSH ×2 (15:36→20:12)
[2024-11-22] MEDS: Amiodarone HCL 200 MG TABLET PO (15:36)
[2024-11-22] MEDS: Collagenase Clostridium Hist. 30 GM TUBE 1 APPL TOPICAL (15:37)
[2024-11-22] MEDS: vancomycin HCL 500 MG in 0.9 % Sodium Chloride 100 ML 110 MG IV (15:37)
--- NOTE | 2024-11-22 15:39 | P.PNID_ITS ---
Subjective Subjective Date of Service: 11/22/24 Critical Care Time (minutes): 15 Comment: He has no complaints,legs are clearing Objective Data Labs 11/22/24 14:07 11/22/24 14:07 Labs: Laboratory Results - last 24 hr 11/21/24 11/21/24 11/22/24 16:21 20:38 08:00 WBC RBC Hgb Hct MCV MCH MCHC RDW Plt Count MPV Absolute Nucleated RBC Nucleated RBC % (auto) Sodium Potassium Chloride Carbon Dioxide Anion Gap BUN Creatinine Estim Creat Clear Calc Estimated GFR POC Glucose 267 H 180 H 149 H Random Glucose Calcium Random Vancomycin 11/22/24 14:07 WBC 14.2 H RBC 4.01 L Hgb 10.6 L Hct 33.1 L MCV 82.5 MCH 26.4 L MCHC 32.0 RDW 15.4 Plt Count 426 H MPV 10.4 Absolute Nucleated RBC 0.000 Nucleated RBC % (auto) 0.0 Sodium 131 L Potassium 3.9 D Chloride 98 Carbon Dioxide 24 Anion Gap 13 BUN 29 H Creatinine 2.10 H Estim Creat Clear Calc 43.9 Estimated GFR 34 POC Glucose Random Glucose 198 H Calcium 8.9 Random Vancomycin 12.7 L Microbiology Microbiology Results: Microbiology 11/05/24 21:38 Blood - Venous Blood Culture - Final No growth after 5 days. 11/05/24 21:30 Blood - Venous Blood Culture - Final No growth after 5 days. 11/08/24 Unknown Urine clean catch - Clean Catch Midstream Urine Culture - Final 11/05/24 04:49 Blood - Venous Blood Culture - Final No growth after 5 days. 11/05/24 04:26 Blood - Venous Blood Culture - Final No growth after 5 days. 11/05/24 11:35 Groin Gram Stain - Final 11/05/24 11:35 Groin Routine Culture - Final Klebsiella pneumoniae Proteus mirabilis Pseudomonas aeruginosa Physical Exam 2 Vital Signs: Vital Signs: Last Vital Signs Temp 97.5 F 11/22/24 07:55 Pulse 76 11/22/24 07:55 Resp 16 11/22/24 07:55 BP 101/55 L 11/22/24 07:55 Pulse Ox 97 11/22/24 07:55 O2 Del Method Room Air 11/22/24 07:55 O2 Flow Rate 2 11/22/24 03:34 Oxygen Flow Rate 4 11/05/24 04:40 BMI result Body Mass Index 27.1 Const: General: cooperative HEENT: Head: Yes normal to inspection Face and sinus: Yes normal facial exam Mouth: Normal oral and palatal mucosa present Teeth and gingiva: d entition normal Eyes: General: appearance normal, both eyes and all related structures P upils: Equal, round and reactive pupils present Resp: Effort & Inspection: normal respiratory effort Cardio: Rate: regular rate Rhythm: regular rhythm GI: Palpation (GI): Soft to palpation and nontender : General: Yes no CVA tenderness Back/Spine/Pelvis: Back: no CVA tenderness Skin: General skin exam: no rashes or lesions noted Neuro: General: moves all extremities Cranial nerves: Yes Equal, round and reactive pupils present Extrem: General: Yes normal to inspection Psych: Appearance: grossly normal Assessment and Plan Assessment and plan (1) Osteomyelitis: Status: Acute Plan He has finished treatment for MRSA bacteremia. He should be on Levaquin po through 11/23 cover Klebsiella and Proteus wound Time Spent With Patient Time: Total time managing care of this patient today ____ minutes.
[2024-11-22 15:45] VITALS: BP 93/50; PULSE 92; RESP 18; TEMP 36.8; O2SAT 98
[2024-11-22 16:15] LABS: Glucose, Whole Blood 253 mg/dL (60-115)
[2024-11-22] MEDS: Insulin Lispro 100 UNIT/ML 3 ML VIAL SUBCUT ×2 (16:32→20:30)
[2024-11-22] MEDS: Calcium Acetate 667 MG CAPSULE 1334 MG PO (16:33)
[2024-11-22 19:32] VITALS: BP 119/57; PULSE 91; RESP 18; TEMP 37.2; O2SAT 98
[2024-11-22] MEDS: Atorvastatin Calcium 40 MG TABLET PO (20:11)
[2024-11-22 20:28] LABS: Glucose, Whole Blood 355 mg/dL (60-115)
--- NOTE | 2024-11-22 20:30 | PC.NURSE ---
Dr. Duvall made aware, POC of 355, agreed upon 14 U of insulin
[2024-11-22 23:25] VITALS: BP 94/50; PULSE 97; RESP 16; TEMP 36.7; O2SAT 98
[2024-11-23] VITALS (19 sets, daily range): BP systolic 98–122; BP diastolic 47–77; PULSE 82–95; RESP 14–22; TEMP 36.3–37.6; O2SAT 96–100
[2024-11-23] MEDS: Omeprazole 20 MG CAPSULE.DR PO (05:48)
[2024-11-23 07:51] LABS: Glucose, Whole Blood 225 mg/dL (60-115)
[2024-11-23] MEDS: Insulin Glargine,Hum.rec.anlog 100 UNIT/ML 10 ML VIAL 12 UNIT SUBCUT (08:39)
[2024-11-23] MEDS: Morphine Sulfate 2 MG/ML CARTRIDGE 4 MG IVPUSH ×2 (08:39→12:47)
[2024-11-23] MEDS: 0.9 % Sodium Chloride Flush 3 ML SYRINGE IVFLUSH ×2 (08:40→20:26)
[2024-11-23] MEDS: Buprenorphine/Naloxone 8/2 mg FILM 1 FILM SUBLINGUAL ×2 (08:40→20:25)
[2024-11-23] MEDS: Insulin Lispro 100 UNIT/ML 3 ML VIAL SUBCUT ×2 (08:40→21:21)
[2024-11-23] MEDS: Multivitamin TABLET 1 TAB PO (08:41)
[2024-11-23] MEDS: Calcium Acetate 667 MG CAPSULE 1334 MG PO ×2 (08:41→17:15)
[2024-11-23] MEDS: calcitrioL 0.25 MCG CAPSULE 0.5 MCG PO (08:42)
[2024-11-23] MEDS: Amiodarone HCL 200 MG TABLET PO (08:42)
[2024-11-23] MEDS: levoFLOXacin 500 MG TABLET PO (08:42)
[2024-11-23] MEDS: Midodrine HCl 5 MG TABLET PO ×2 (08:42→17:15)
[2024-11-23] MEDS: oxyCODONE HCl Immed Release 5 MG TABLET 10 MG PO ×3 (10:49→20:23)
[2024-11-23 11:31] LABS: Glucose, Whole Blood 106 mg/dL (60-115)
--- NOTE | 2024-11-23 12:43 | HO.PM.IMPN ---
Subjective Subjective Date of Service: 11/23/24 Interval History: No new issue, still c/o pain rpain is reasonably well controlled. no new issues, going for debridment in the OR today Physical Exam Vital Signs: Vital Signs: Last Vital Signs Temp 97.3 F 11/23/24 11:19 Pulse 84 11/23/24 11:19 Resp 16 11/23/24 11:19 BP 110/62 11/23/24 11:19 Pulse Ox 96 11/23/24 11:19 O2 Del Method Room Air 11/23/24 11:19 O2 Flow Rate 2 11/23/24 03:32 Oxygen Flow Rate 4 11/05/24 04:40 BMI result Body Mass Index 27.1 General: AO X 3, no acute distress Resp: CTA bilateral CVS: S1,S2,RRR GI: +BS, NT, no distention Skin: Neuro: motor grossly intact Psych: appropriate affect Objective Data Active Medications Acetaminophen (Acetaminophen 325 Mg Tablet) 650 mg PO Q6H PRN PRN Reason: Pain, Mild 1-3,fever,headache Last Admin: 11/14/24 16:13 Dose: 650 mg Documented By: KIM Al Hydroxide/Mg Hydroxide (Magnesium Hydrox/Alum Hydrox 30 Ml Oral.Susp) 30 ml PO Q4H PRN PRN Reason: Heartburn Albuterol Sulfate (Albuterol Sulfate 90 Mcg 8 Gm Inhaler) 1 puff INHALE RQ6H PRN PRN Reason: Shortness of Breath/Wheezing Last Admin: 11/08/24 22:58 Dose: 1 puff Documented By: NICOLAS Amiodarone HCl (Amiodarone Hcl 200 Mg Tablet) 200 mg PO DAILY [facility] Last Admin: 11/23/24 08:42 Dose: 200 mg Documented By: GOKUL Apixaban (Apixaban 5 Mg Tablet) 5 mg PO BID [facility] Last Admin: 11/22/24 20:11 Dose: 5 mg Documented By: JOSÉ Atorvastatin Calcium (Atorvastatin Calcium 40 Mg Tablet) 40 mg PO BEDTIME [facility] Last Admin: 11/22/24 20:11 Dose: 40 mg Documented By: JOSÉ Buprenorphine/Naloxone (Buprenorphine/Naloxone 8/2 Mg Film) 1 film SUBLINGUAL TID [facility] Last Admin: 11/23/24 08:40 Dose: 1 film Documented By: GOKUL Calcitriol (Calcitriol 0.25 Mcg Capsule) 0.5 mcg PO DAILY [facility] Last Admin: 11/23/24 08:42 Dose: 0.5 mcg Documented By: GOKUL Calcium Acetate (Calcium Acetate 667 Mg Capsule) 1,334 mg PO TIDWM [facility] Last Admin: 11/23/24 08:41 Dose: 1,334 mg Documented By: GOKUL Calcium Carbonate (Calcium Carbonate 750 Mg Tab.Chew) 750 mg PO Q4H PRN PRN Reason: Heartburn Collagenase (Collagenase Clostridium Hist. 30 Gm Tube) 1 appl TOPICAL BID [facility]; Protocol Last Admin: 11/22/24 20:15 Dose: Not Given Documented By: JOSÉ Non-Admin Reason: given during wound change Glucose (Glucose Gel 15 Gm Gel..Gram.) 15 gm PO Q15M PRN; Protocol PRN Reason: per Hypoglycemia Standing Ord. Dextrose (D10) 250 mls @ 750 mls/hr IV Q15M PRN; Protocol PRN Reason: per Hypoglycemia Standing Ord. Vancomycin HCl 500 mg/ Sodium (Chloride) 110 mls @ 110 mls/hr IV MoWeFr@1800 [facility] Insulin Glargine (Insulin Glargine,Hum.Rec.Anlog 100 Unit/Ml 10 Ml Vial) 12 unit SUBCUT DAILY [facility] Last Admin: 11/23/24 08:39 Dose: 12 unit Documented By: GOKUL Insulin Human Lispro (Insulin Lispro 100 Unit/Ml 3 Ml Vial) 0 unit SUBCUT QIDACHS [facility]; Protocol Last Admin: 11/23/24 11:43 Dose: Not Given Documented By: GOKUL Non-Admin Reason: No Insulin Coverage Levofloxacin (Levofloxacin 500 Mg Tablet) 500 mg PO Q48H [facility] Stop: 11/24/24 09:59 Last Admin: 11/23/24 08:42 Dose: 500 mg Documented By: GOKUL Loperamide HCl (Loperamide Hcl 2 Mg Capsule) 4 mg PO Q4H PRN PRN Reason: Diarrhea Last Admin: 11/20/24 17:44 Dose: 4 mg Documented By: BIN Magnesium Hydroxide (Milk Of Magnesia 30 Ml Oral.Susp) 30 ml PO DAILY PRN PRN Reason: Constipation Melatonin (Melatonin 3 Mg Tablet) 6 mg PO BEDTIME PRN PRN Reason: Insomnia Metoprolol Succinate (Metoprolol Succinate Er 50 Mg Tab.Er.24h) 50 mg PO DAILY [facility]; Protocol Last Admin: 11/22/24 09:23 Dose: Not Given Documented By: GOKUL Non-Admin Reason: dialysis Midodrine (Midodrine Hcl 5 Mg Tablet) 5 mg PO BIDWM [facility] Last Admin: 11/23/24 08:42 Dose: 5 mg Documented By: GOKUL Morphine Sulfate (Morphine Sulfate 2 Mg/Ml Cartridge) 4 mg IVPUSH Q4H PRN; Protocol PRN Reason: Pain, Severe (Pain Scale 7-10) Last Admin: 11/23/24 08:39 Dose: 4 mg Documented By: GOKUL Multivitamins/Vitamin C (Multivitamin Tablet) 1 tab PO DAILY [facility] Last Admin: 11/23/24 08:41 Dose: 1 tab Documented By: GOKUL Omeprazole (Omeprazole 20 Mg Capsule.Dr) 20 mg PO DAILY@0630 [facility] Last Admin: 11/23/24 05:48 Dose: 20 mg Documented By: JOSÉ Ondansetron HCl (Ondansetron Hcl 4 Mg/2 Ml Vial) 4 mg IVPUSH Q8H PRN PRN Reason: Nausea and Vomiting Oxycodone HCl (Oxycodone Hcl Immed Release 5 Mg Tablet) 10 mg PO Q4H PRN PRN Reason: Pain, Moderate(Pain Scale 4-6) Last Admin: 11/23/24 10:49 Dose: 10 mg Documented By: GOKUL Polyethylene Glycol (Polyethylene Glycol 3350 17 Gm Powd.Pack) 17 gm PO DAILY PRN PRN Reason: Constipation Sodium Chloride (0.9 % Sodium Chloride Flush 3 Ml Syringe) 3 ml IVFLUSH QSHIFT [facility] Last Admin: 11/23/24 08:40 Dose: 3 ml Documented By: GOKUL Torsemide (Torsemide 20 Mg Tablet) 80 mg PO BIDWM [facility]; Protocol Last Admin: 11/23/24 07:55 Dose: Not Given Documented By: GOKUL Non-Admin Reason: Physician Held Med Labs 11/22/24 14:07 11/22/24 14:07 Labs: Laboratory Results - last 24 hr 11/22/24 11/22/24 11/22/24 14:07 16:10 20:12 MCV 82.5 MCH 26.4 L MCHC 32.0 RDW 15.4 Plt Count 426 H MPV 10.4 Absolute Nucleated RBC 0.000 Nucleated RBC % (auto) 0.0 Anion Gap 13 Estim Creat Clear Calc 43.9 Estimated GFR 34 POC Glucose 253 H 355 H* Random Glucose 198 H Calcium 8.9 Random Vancomycin 12.7 L 11/23/24 11/23/24 07:45 11:25 MCV MCH MCHC RDW Plt Count MPV Absolute Nucleated RBC Nucleated RBC % (auto) Anion Gap Estim Creat Clear Calc Estimated GFR POC Glucose 225 H 106 Random Glucose Calcium Random Vancomycin Assessment and Plan (1) Anemia in chronic kidney disease (CKD): Status: Acute Plan 44 y/o man with past medical history significant for ESRD on HD (MWF), diabetes, polysubstance abuse, 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 Essentially no change, awaiting placement and debridment next week Septic shock likely multiple etiology, previous MRSA, abdominal and inner thigh cellulitis--shock resolved. -wound culture growing Klebsiel and Proteus--sensitive to ceftriaxone -Continue Vancomyin per prior MRSA bacteremia, completed treated was on Ceftriaxone/flagyl starting 11/08, changed to levoflox 11/09/23 for 14 days( wound culture also show pseudomonas.) Per ID recommendation en date 11/23 ESRD--HD MWF (Nephrology following) Paroxysmal atrial flutter. Continue amiodarone, metoprolol and Eliquis. HypOtension--required vasopressors on presentation, continue Midodrine Elevated troponin, chronic. No chest pain. Likely secondary to end-stage renal disease. Acute on chronic anemia- iron levels low tibc,iron sats ,ferritin, folate and b12 seems fine. denies any gross bleeding or melena as per patient. s/p 4prbc this admission h/h has been stable moniter cbc and transfuse if hgb < 7 History of drug abuse. Continue Suboxone. Addiction med consult. Pressure ulcer, nursing wound protocol -surgery consult noted- difficult constellation of skin wounds in an area not amenable to debridement, best treated with local wound care. wound care: Turn and Reposition every 2 hours and as needed for patient comfort.? Use pillows or wedges to support off loading positions. Off Load all bony prominences with use of pillows and heel boots if needed.? Apply Preventative foams where needed. ? Monitor for incontinence and moisture control, use barrier creams when needed for prevention and treatment. Recommend Condom cath for urinary containment as patient is incontinent of urine at times. Provide adequate and supplemental nutrition.? Continue Pulsate from Agility bed. Maintain blood glucose levels per Providers order. Scrotum and Sacrum and Coccyx Buttock- Off Load Pressure with Q2hr turns and use of pillows. Cleanse with PH balance spray or wipes, pat dry. ?Apply thin layer of Triad to wound bed - only pat and dab no scrub and rub when soiling occurs. Reapply thin layer PRN after each episode of incontinence. Do not use foam dressing at this time. Left Heel, Right Hip, Right Thigh and bilateral groin - Cleanse with Stacie Acworth and NS moist gauze, pat dry. Apply Triad to periwound, apply thick layer of Santyl to entire wound bed, cover with gauze, ABD dressing, change Daily. Mid Back - Gently cleanse with NS moist gauuze, pat dry. Apply skin prep allow to dry. Cover wound bed with thin single layer of xeroform and ABD pad. Change daily. -see picture, surgery to do debridment in OR today -morphine for dressing changes, oxycodone PRN for pain Type 2 diabetes mellitus, hypoglycemia this mornng -BG checks before meals at bedtime. -Insulin sliding scale and Lantus. Diabetic diet Hyperlipidemia. Continue atorvastatin. Right BKA. no issues DVT prophylaxis: Oscar Pt mary kate Need for inpt: awaiting placement spoke with mother and given difficulty finding SNF, they are electing to go home with [facility] Quality Stroke Does the patient have a stroke diagnosis?: No VTE Prior VTE?: No VTE Risk Level:: Medical - moderate - high VTE Device Contraindication: Treatment Not Indicated VTE Drug Contraindication: N/A - Med Ordered
--- NOTE | 2024-11-23 12:44 | P.CONAN_ITS ---
[facility] Active Problems Active Problems: All Active Problems Anemia in chronic kidney disease (CKD) (Acute) Cellulitis (Acute) Acidosis, metabolic, with respiratory acidosis (Acute) Opioid use disorder, severe, dependence (Acute) Bacteremia (Acute) MRSA bacteremia (Acute) ESRD on dialysis (Acute) ESRD (end stage renal disease) on dialysis (Acute) Pseudohyponatremia (Acute) Sepsis (Acute) Osteomyelitis (Acute) Hyperglycemia (Acute) Diabetic wet gangrene of the foot (Acute) Diabetic ulcer of right foot (Acute) Amputation of toe of right foot (Acute) Foot osteomyelitis, left (Acute) Past Medical History Medical History Opioid use disorder, severe, dependence Bacteremia Volume overload Paroxysmal atrial flutter Cardiomyopathy Pericardial effusion Atrial flutter Need for acute hemodialysis Leukocytosis Anemia Anemia Transfusion history Atrial flutter, paroxysmal COPD (chronic obstructive pulmonary disease) Constipation Callus of foot Seizure Polysubstance abuse CKD (chronic kidney disease) stage 3, GFR 30-59 ml/min Foot osteomyelitis, left Amputation of toe of right foot Diabetic ulcer of right foot Hyperglycemia due to type 2 diabetes mellitus Renal failure Sleep apnea Diabetes HTN (hypertension) Family History Family history of problems with anesthesia: No Surgical History Surgical History Hx of right BKA History of surgical procedure (~04/24/23) History of Problems with Anesthesia: No Social History Social History Household Members: Family Household Members Other:: lives with mother Housing: House Unable to assess alcohol history related to: Unable to respond Alcohol intake: former Comment: bilateral wrist restraints/propofol drip for airway safety Patient Tobacco Use Status: Former Tobacco user Tobacco use type: Cigarette Cigarette Packs Per Day: 0.5 Cigarettes Per Day: 10.0 Years Smoked: 33 e-Cigarette/Vaping Use: Currently Using Second Hand Smoke Exposure: Yes Use of substances other than those prescribed or required for medical reasons: Yes Substance Use Type: Crack/Cocaine, Heroin, Marijuana and Opiates Last Used Substance: Unknown Last Used Substance Other:: patient reports he quit 2 months ago Currently Displaying Signs/Symptoms of Drug Intoxication Withdrawal: No Have you been hit, kicked, punched, or otherwise hurt by someone within the past year? If so, by whom?: No Do you feel safe in your current relationship?: No Current Relationship Is there a partner from a previous relationship who is making you feel unsafe now?: No Are you made to feel afraid or neglected: No Advance Directives: No Advance Directives Information Provided: Yes Do you have a plan to hurt others: No Plan Recently lost weight without trying: Unsure Nutrition Risks: Dental problems service: No Meds Allergies Allergy/AdvReac Type Severity Reaction Status Date / Time No Known Allergies Allergy Verified 11/23/24 13:36 [No Known Allergies*] Active Medications: Current Medications Acetaminophen (Acetaminophen 325 Mg Tablet) 650 mg PO Q6H PRN PRN Reason: Pain, Mild 1-3,fever,headache Last Admin: 11/14/24 16:13 Dose: 650 mg Al Hydroxide/Mg Hydroxide (Magnesium Hydrox/Alum Hydrox 30 Ml Oral.Susp) 30 ml PO Q4H PRN PRN Reason: Heartburn Albuterol Sulfate (Albuterol Sulfate 90 Mcg 8 Gm Inhaler) 1 puff INHALE RQ6H PRN PRN Reason: Shortness of Breath/Wheezing Last Admin: 11/08/24 22:58 Dose: 1 puff Amiodarone HCl (Amiodarone Hcl 200 Mg Tablet) 200 mg PO DAILY [facility] Last Admin: 11/23/24 08:42 Dose: 200 mg Apixaban (Apixaban 5 Mg Tablet) 5 mg PO BID [facility] Last Admin: 11/22/24 20:11 Dose: 5 mg Atorvastatin Calcium (Atorvastatin Calcium 40 Mg Tablet) 40 mg PO BEDTIME [facility] Last Admin: 11/22/24 20:11 Dose: 40 mg Buprenorphine/Naloxone (Buprenorphine/Naloxone 8/2 Mg Film) 1 film SUBLINGUAL TID [facility] Last Admin: 11/23/24 08:40 Dose: 1 film Calcitriol (Calcitriol 0.25 Mcg Capsule) 0.5 mcg PO DAILY [facility] Last Admin: 11/23/24 08:42 Dose: 0.5 mcg Calcium Acetate (Calcium Acetate 667 Mg Capsule) 1,334 mg PO TIDWM [facility] Last Admin: 11/23/24 08:41 Dose: 1,334 mg Calcium Carbonate (Calcium Carbonate 750 Mg Tab.Chew) 750 mg PO Q4H PRN PRN Reason: Heartburn Collagenase (Collagenase Clostridium Hist. 30 Gm Tube) 1 appl TOPICAL BID [facility]; Protocol Last Admin: 11/22/24 20:15 Dose: Not Given Glucose (Glucose Gel 15 Gm Gel..Gram.) 15 gm PO Q15M PRN; Protocol PRN Reason: per Hypoglycemia Standing Ord. Dextrose (D10) 250 mls @ 750 mls/hr IV Q15M PRN; Protocol PRN Reason: per Hypoglycemia Standing Ord. Vancomycin HCl 500 mg/ Sodium (Chloride) 110 mls @ 110 mls/hr IV [id number] [facility] Insulin Glargine (Insulin Glargine,Hum.Rec.Anlog 100 Unit/Ml 10 Ml Vial) 12 unit SUBCUT DAILY [facility] Last Admin: 11/23/24 08:39 Dose: 12 unit Insulin Human Lispro (Insulin Lispro 100 Unit/Ml 3 Ml Vial) 0 unit SUBCUT QI [facility]; Protocol Last Admin: 11/23/24 11:43 Dose: Not Given Levofloxacin (Levofloxacin 500 Mg Tablet) 500 mg PO Q48H [facility] Stop: 11/24/24 09:59 Last Admin: 11/23/24 08:42 Dose: 500 mg Loperamide HCl (Loperamide Hcl 2 Mg Capsule) 4 mg PO Q4H PRN PRN Reason: Diarrhea Last Admin: 11/20/24 17:44 Dose: 4 mg Magnesium Hydroxide (Milk Of Magnesia 30 Ml Oral.Susp) 30 ml PO DAILY PRN PRN Reason: Constipation Melatonin (Melatonin 3 Mg Tablet) 6 mg PO BEDTIME PRN PRN Reason: Insomnia Metoprolol Succinate (Metoprolol Succinate Er 50 Mg Tab.Er.24h) 50 mg PO DAILY [facility]; Protocol Last Admin: 11/22/24 09:23 Dose: Not Given Midodrine (Midodrine Hcl 5 Mg Tablet) 5 mg PO BIDWM [facility] Last Admin: 11/23/24 08:42 Dose: 5 mg Morphine Sulfate (Morphine Sulfate 2 Mg/Ml Cartridge) 4 mg IVPUSH Q4H PRN; Protocol PRN Reason: Pain, Severe (Pain Scale 7-10) Last Admin: 11/23/24 08:39 Dose: 4 mg Multivitamins/Vitamin C (Multivitamin Tablet) 1 tab PO DAILY [facility] Last Admin: 11/23/24 08:41 Dose: 1 tab Omeprazole (Omeprazole 20 Mg Capsule.Dr) 20 mg PO DAILY@0630 [facility] Last Admin: 11/23/24 05:48 Dose: 20 mg Ondansetron HCl (Ondansetron Hcl 4 Mg/2 Ml Vial) 4 mg IVPUSH Q8H PRN PRN Reason: Nausea and Vomiting Oxycodone HCl (Oxycodone Hcl Immed Release 5 Mg Tablet) 10 mg PO Q4H PRN PRN Reason: Pain, Moderate(Pain Scale 4-6) Last Admin: 11/23/24 10:49 Dose: 10 mg Polyethylene Glycol (Polyethylene Glycol 3350 17 Gm Powd.Pack) 17 gm PO DAILY PRN PRN Reason: Constipation Sodium Chloride (0.9 % Sodium Chloride Flush 3 Ml Syringe) [facility] Last Admin: 11/23/24 08:40 Dose: 3 ml Torsemide (Torsemide 20 Mg Tablet) 80 mg PO BIDWM [facility]; Protocol Last Admin: 11/23/24 07:55 Dose: Not Given Home Medications ?Medication ?Instructions ?Recorded ?Confirmed ?Last Taken ?Type insulin glargine 100 unit/mL (3 10 unit subcut DAILY 09/28/24 11/05/24 11/04/24 History mL) subcutaneous pen insulin lispro 100 unit/mL See Protocol subcut TIDAC 09/28/24 11/05/24 11/04/24 History subcutaneous pen (Humalog KwikPen (U-100) Insulin) melatonin 5 mg tablet 5 mg PO BEDTIME PRN insomnia 09/28/24 11/05/24 11/04/24 History Exam Height,Weight and Vital Signs: Height 5 ft 9 in Weight 83.4 kg Last Vital Signs Temp 97.3 F 11/23/24 11:19 Pulse 84 11/23/24 11:19 Resp 16 11/23/24 11:19 BP 110/62 11/23/24 11:19 Pulse Ox 96 11/23/24 11:19 O2 Del Method Room Air 11/23/24 11:19 O2 Flow Rate 2 11/23/24 03:32 Oxygen Flow Rate 4 11/05/24 04:40 Pertinent Lab Results Pertinent Lab Results: Laboratory Tests 11/05/24 11/05/24 11/05/24 04:26 04:33 04:36 WBC 16.3 H RBC 2.71 L Hgb 7.1 L Hct 24.6 L MCV 90.8 MCH 26.2 L MCHC 28.9 L RDW 16.0 Plt Count 357 MPV 10.1 Immature Gran % (Auto) 0.7 H Neut % (Auto) 86.7 H Lymph % (Auto) 6.2 L [place] % (Auto) 5.5 Eos % (Auto) 0.7 Baso % (Auto) 0.2 Lymph # (Auto) 1.0 L [place] # (Auto) 0.9 Eos # (Auto) 0.1 Baso # (Auto) 0.0 Abs Immat Gran (auto) 0.11 H Absolute Neuts (auto) 14.2 H Absolute Nucleated RBC 0.000 Nucleated RBC % (auto) 0.0 VBG pH 7.27 L VBG pCO2 70 VBG pO2 82 VBG HCO3 33 H VBG O2 Saturation 98.0 VBG Base Excess 4.7 Sodium 128 L Potassium 4.2 Chloride 91 L Carbon Dioxide 27 Anion Gap 14 BUN 36 H Creatinine 5.77 H* Estim Creat Clear Calc 15.9 Estimated GFR 11 POC Glucose Random Glucose 201 H Lactic Acid 0.8 Calcium 7.8 L D Iron TIBC % Saturation Unsat Iron Binding Ferritin Total Bilirubin 0.2 AST 20 ALT < 6 Alkaline Phosphatase 134 H Troponin I High Sens 182.8 H* B-Natriuretic Peptide 2184 H Total Protein 7.4 Albumin 2.1 L Vitamin B12 Folate Urine Color Urine Appearance Urine pH Ur Specific [place] Urine Protein Urine Glucose (UA) Urine Ketones Urine Blood Urine Nitrite Ur Leukocyte Esterase Urine RBC Urine WBC Ur Squamous Epith Cells Urine Bacteria Hyaline Casts Random Vancomycin Urine Opiates Screen Ur Buprenorphine Scrn Ur Oxycodone Screen Urine Methadone Screen Urine Fentanyl Screen Ur Barbiturates Screen Ur Phencyclidine Scrn Ur Amphetamines Screen U Benzodiazepines Scrn Urine Cocaine Screen U Marijuana (THC) Screen C. difficile Tox B Gene Influenza Type A (PCR) NEGATIVE Influenza Type B (PCR) NEGATIVE RSV RNA Qual (PCR) NEGATIVE SARS-CoV-2 RNA (RT-PCR) NEGATIVE Blood Type Antibody Screen Crossmatch 11/05/24 11/05/24 11/05/24 08:54 20:15 20:51 WBC RBC Hgb Hct MCV MCH MCHC RDW Plt Count MPV Immature Gran % (Auto) Neut % (Auto) Lymph % (Auto) [place] % (Auto) Eos % (Auto) Baso % (Auto) Lymph # (Auto) [place] # (Auto) Eos # (Auto) Baso # (Auto) Abs Immat Gran (auto) Absolute Neuts (auto) Absolute Nucleated RBC Nucleated RBC % (auto) VBG pH 7.33 VBG pCO2 59 VBG pO2 77 VBG HCO3 31 H VBG O2 Saturation 97.0 VBG Base Excess 4.3 Sodium Potassium Chloride Carbon Dioxide Anion Gap BUN Creatinine Estim Creat Clear Calc Estimated GFR POC Glucose 126 H Random Glucose Lactic Acid Calcium Iron TIBC % Saturation Unsat Iron Binding Ferritin Total Bilirubin AST ALT Alkaline Phosphatase Troponin I High Sens B-Natriuretic Peptide Total Protein Albumin Vitamin B12 Folate Urine Color Urine Appearance Urine pH Ur Specific [place] Urine Protein Urine Glucose (UA) Urine Ketones Urine Blood Urine Nitrite Ur Leukocyte Esterase Urine RBC Urine WBC Ur Squamous Epith Cells Urine Bacteria Hyaline Casts Random Vancomycin 16.1 Urine Opiates Screen Ur Buprenorphine Scrn Ur Oxycodone Screen Urine Methadone Screen Urine Fentanyl Screen Ur Barbiturates Screen Ur Phencyclidine Scrn Ur Amphetamines Screen U Benzodiazepines Scrn Urine Cocaine Screen U Marijuana (THC) Screen C. difficile Tox B Gene Influenza Type A (PCR) Influenza Type B (PCR) RSV RNA Qual (PCR) SARS-CoV-2 RNA (RT-PCR) Blood Type Antibody Screen Crossmatch 11/05/24 11/05/24 11/06/24 21:11 21:30 07:11 WBC 14.1 H RBC 2.49 L Hgb 6.5 L* Hct 22.2 L MCV 89.2 MCH 26.1 L MCHC 29.3 L RDW 15.8 Plt Count 295 MPV 10.5 Immature Gran % (Auto) Neut % (Auto) Lymph % (Auto) [place] % (Auto) Eos % (Auto) Baso % (Auto) Lymph # (Auto) [place] # (Auto) Eos # (Auto) Baso # (Auto) Abs Immat Gran (auto) Absolute Neuts (auto) Absolute Nucleated RBC 0.000 Nucleated RBC % (auto) 0.0 VBG pH VBG pCO2 VBG pO2 VBG HCO3 VBG O2 Saturation VBG Base Excess Sodium 133 L Potassium 3.4 Chloride 100 Carbon Dioxide 26 Anion Gap 10 L BUN 22 H Creatinine 3.85 H Estim Creat Clear Calc 23.9 Estimated GFR 17 POC Glucose 116 H Random Glucose 98 Lactic Acid 0.7 Calcium 7.5 L Iron TIBC % Saturation Unsat Iron Binding Ferritin Total Bilirubin 0.2 AST 20 ALT < 6 Alkaline Phosphatase 112 Troponin I High Sens B-Natriuretic Peptide Total Protein 6.4 L Albumin 2.1 L Vitamin B12 Folate Urine Color Urine Appearance Urine pH Ur Specific [place] Urine Protein Urine Glucose (UA) Urine Ketones Urine Blood Urine Nitrite Ur Leukocyte Esterase Urine RBC Urine WBC Ur Squamous Epith Cells Urine Bacteria Hyaline Casts Random Vancomycin Urine Opiates Screen Ur Buprenorphine Scrn Ur Oxycodone Screen Urine Methadone Screen Urine Fentanyl Screen Ur Barbiturates Screen Ur Phencyclidine Scrn Ur Amphetamines Screen U Benzodiazepines Scrn Urine Cocaine Screen U Marijuana (THC) Screen C. difficile Tox B Gene Influenza Type A (PCR) Influenza Type B (PCR) RSV RNA Qual (PCR) SARS-CoV-2 RNA (RT-PCR) Blood Type Antibody Screen Crossmatch 11/06/24 11/06/24 11/06/24 07:25 11:13 11:26 WBC RBC Hgb Hct MCV MCH MCHC RDW Plt Count MPV Immature Gran % (Auto) Neut % (Auto) Lymph % (Auto) [place] % (Auto) Eos % (Auto) Baso % (Auto) Lymph # (Auto) [place] # (Auto) Eos # (Auto) Baso # (Auto) Abs Immat Gran (auto) Absolute Neuts (auto) Absolute Nucleated RBC Nucleated RBC % (auto) VBG pH VBG pCO2 VBG pO2 VBG HCO3 VBG O2 Saturation VBG Base Excess Sodium Potassium Chloride Carbon Dioxide Anion Gap BUN Creatinine Estim Creat Clear Calc Estimated GFR POC Glucose 92 115 Random Glucose Lactic Acid Calcium Iron TIBC % Saturation Unsat Iron Binding Ferritin Total Bilirubin AST ALT Alkaline Phosphatase Troponin I High Sens B-Natriuretic Peptide Total Protein Albumin Vitamin B12 Folate Urine Color Urine Appearance Urine pH Ur Specific [place] Urine Protein Urine Glucose (UA) Urine Ketones Urine Blood Urine Nitrite Ur Leukocyte Esterase Urine RBC Urine WBC Ur Squamous Epith Cells Urine Bacteria Hyaline Casts Random Vancomycin Urine Opiates Screen Ur Buprenorphine Scrn Ur Oxycodone Screen Urine Methadone Screen Urine Fentanyl Screen Ur Barbiturates Screen Ur Phencyclidine Scrn Ur Amphetamines Screen U Benzodiazepines Scrn Urine Cocaine Screen U Marijuana (THC) Screen C. difficile Tox B Gene Influenza Type A (PCR) Influenza Type B (PCR) RSV RNA Qual (PCR) SARS-CoV-2 RNA (RT-PCR) Blood Type O Positive Antibody Screen NEGATIVE Crossmatch See Detail 11/06/24 11/06/24 11/07/24 16:34 20:23 07:14 WBC RBC Hgb Hct MCV MCH MCHC RDW Plt Count MPV Immature Gran % (Auto) Neut % (Auto) Lymph % (Auto) [place] % (Auto) Eos % (Auto) Baso % (Auto) Lymph # (Auto) [place] # (Auto) Eos # (Auto) Baso # (Auto) Abs Immat Gran (auto) Absolute Neuts (auto) Absolute Nucleated RBC Nucleated RBC % (auto) VBG pH VBG pCO2 VBG pO2 VBG HCO3 VBG O2 Saturation VBG Base Excess Sodium Potassium Chloride Carbon Dioxide Anion Gap BUN Creatinine Estim Creat Clear Calc Estimated GFR POC Glucose 226 H 120 H 64 Random Glucose Lactic Acid Calcium Iron TIBC % Saturation Unsat Iron Binding Ferritin Total Bilirubin AST ALT Alkaline Phosphatase Troponin I High Sens B-Natriuretic Peptide Total Protein Albumin Vitamin B12 Folate Urine Color Urine Appearance Urine pH Ur Specific [place] Urine Protein Urine Glucose (UA) Urine Ketones Urine Blood Urine Nitrite Ur Leukocyte Esterase Urine RBC Urine WBC Ur Squamous Epith Cells Urine Bacteria Hyaline Casts Random Vancomycin Urine Opiates Screen Ur Buprenorphine Scrn Ur Oxycodone Screen Urine Methadone Screen Urine Fentanyl Screen Ur Barbiturates Screen Ur Phencyclidine Scrn Ur Amphetamines Screen U Benzodiazepines Scrn Urine Cocaine Screen U Marijuana (THC) Screen C. difficile Tox B Gene Influenza Type A (PCR) Influenza Type B (PCR) RSV RNA Qual (PCR) SARS-CoV-2 RNA (RT-PCR) Blood Type Antibody Screen Crossmatch 11/07/24 11/07/24 11/07/24 08:32 08:59 11:22 WBC RBC Hgb Hct MCV MCH MCHC RDW Plt Count MPV Immature Gran % (Auto) Neut % (Auto) Lymph % (Auto) [place] % (Auto) Eos % (Auto) Baso % (Auto) Lymph # (Auto) [place] # (Auto) Eos # (Auto) Baso # (Auto) Abs Immat Gran (auto) Absolute Neuts (auto) Absolute Nucleated RBC Nucleated RBC % (auto) VBG pH VBG pCO2 VBG pO2 VBG HCO3 VBG O2 Saturation VBG Base Excess Sodium Potassium Chloride Carbon Dioxide Anion Gap BUN Creatinine Estim Creat Clear Calc Estimated GFR POC Glucose 79 93 114 Random Glucose Lactic Acid Calcium Iron TIBC % Saturation Unsat Iron Binding Ferritin Total Bilirubin AST ALT Alkaline Phosphatase Troponin I High Sens B-Natriuretic Peptide Total Protein Albumin Vitamin B12 Folate Urine Color Urine Appearance Urine pH Ur Specific [place] Urine Protein Urine Glucose (UA) Urine Ketones Urine Blood Urine Nitrite Ur Leukocyte Esterase Urine RBC Urine WBC Ur Squamous Epith Cells Urine Bacteria Hyaline Casts Random Vancomycin Urine Opiates Screen Ur Buprenorphine Scrn Ur Oxycodone Screen Urine Methadone Screen Urine Fentanyl Screen Ur Barbiturates Screen Ur Phencyclidine Scrn Ur Amphetamines Screen U Benzodiazepines Scrn Urine Cocaine Screen U Marijuana (THC) Screen C. difficile Tox B Gene Influenza Type A (PCR) Influenza Type B (PCR) RSV RNA Qual (PCR) SARS-CoV-2 RNA (RT-PCR) Blood Type Antibody Screen Crossmatch 11/07/24 11/07/24 11/08/24 16:22 21:19 07:51 WBC RBC Hgb Hct MCV MCH MCHC RDW Plt Count MPV Immature Gran % (Auto) Neut % (Auto) Lymph % (Auto) [place] % (Auto) Eos % (Auto) Baso % (Auto) Lymph # (Auto) [place] # (Auto) Eos # (Auto) Baso # (Auto) Abs Immat Gran (auto) Absolute Neuts (auto) Absolute Nucleated RBC Nucleated RBC % (auto) VBG pH VBG pCO2 VBG pO2 VBG HCO3 VBG O2 Saturation VBG Base Excess Sodium Potassium Chloride Carbon Dioxide Anion Gap BUN Creatinine Estim Creat Clear Calc Estimated GFR POC Glucose 168 H 217 H 125 H Random Glucose Lactic Acid Calcium Iron TIBC % Saturation Unsat Iron Binding Ferritin Total Bilirubin AST ALT Alkaline Phosphatase Troponin I High Sens B-Natriuretic Peptide Total Protein Albumin Vitamin B12 Folate Urine Color Urine Appearance Urine pH Ur Specific [place] Urine Protein Urine Glucose (UA) Urine Ketones Urine Blood Urine Nitrite Ur Leukocyte Esterase Urine RBC Urine WBC Ur Squamous Epith Cells Urine Bacteria Hyaline Casts Random Vancomycin Urine Opiates Screen Ur Buprenorphine Scrn Ur Oxycodone Screen Urine Methadone Screen Urine Fentanyl Screen Ur Barbiturates Screen Ur Phencyclidine Scrn Ur Amphetamines Screen U Benzodiazepines Scrn Urine Cocaine Screen U Marijuana (THC) Screen C. difficile Tox B Gene Influenza Type A (PCR) Influenza Type B (PCR) RSV RNA Qual (PCR) SARS-CoV-2 RNA (RT-PCR) Blood Type Antibody Screen Crossmatch 11/08/24 11/08/24 11/08/24 11:19 13:08 16:22 WBC 19.1 H RBC 3.10 L D Hgb 8.1 L D Hct 27.2 L D MCV 87.7 MCH 26.1 L MCHC 29.8 L RDW 16.2 H Plt Count 369 D MPV 10.2 Immature Gran % (Auto) Neut % (Auto) Lymph % (Auto) [place] % (Auto) Eos % (Auto) Baso % (Auto) Lymph # (Auto) [place] # (Auto) Eos # (Auto) Baso # (Auto) Abs Immat Gran (auto) Absolute Neuts (auto) Absolute Nucleated RBC 0.000 Nucleated RBC % (auto) 0.0 VBG pH VBG pCO2 VBG pO2 VBG HCO3 VBG O2 Saturation VBG Base Excess Sodium Potassium Chloride Carbon Dioxide Anion Gap BUN Creatinine Estim Creat Clear Calc Estimated GFR POC Glucose 127 H 213 H Random Glucose Lactic Acid Calcium Iron TIBC % Saturation Unsat Iron Binding Ferritin Total Bilirubin AST ALT Alkaline Phosphatase Troponin I High Sens B-Natriuretic Peptide Total Protein Albumin Vitamin B12 Folate Urine Color Urine Appearance Urine pH Ur Specific [place] Urine Protein Urine Glucose (UA) Urine Ketones Urine Blood Urine Nitrite Ur Leukocyte Esterase Urine RBC Urine WBC Ur Squamous Epith Cells Urine Bacteria Hyaline Casts Random Vancomycin Urine Opiates Screen Ur Buprenorphine Scrn Ur Oxycodone Screen Urine Methadone Screen Urine Fentanyl Screen Ur Barbiturates Screen Ur Phencyclidine Scrn Ur Amphetamines Screen U Benzodiazepines Scrn Urine Cocaine Screen U Marijuana (THC) Screen C. difficile Tox B Gene Influenza Type A (PCR) Influenza Type B (PCR) RSV RNA Qual (PCR) SARS-CoV-2 RNA (RT-PCR) Blood Type Antibody Screen Crossmatch 11/08/24 11/08/24 11/08/24 16:44 19:01 19:46 WBC RBC Hgb Hct MCV MCH MCHC RDW Plt Count MPV Immature Gran % (Auto) Neut % (Auto) Lymph % (Auto) [place] % (Auto) Eos % (Auto) Baso % (Auto) Lymph # (Auto) [place] # (Auto) Eos # (Auto) Baso # (Auto) Abs Immat Gran (auto) Absolute Neuts (auto) Absolute Nucleated RBC Nucleated RBC % (auto) VBG pH VBG pCO2 VBG pO2 VBG HCO3 VBG O2 Saturation VBG Base Excess Sodium Potassium Chloride Carbon Dioxide Anion Gap BUN Creatinine Estim Creat Clear Calc Estimated GFR POC Glucose 222 H Random Glucose Lactic Acid Calcium Iron TIBC % Saturation Unsat Iron Binding Ferritin Total Bilirubin AST ALT Alkaline Phosphatase Troponin I High Sens B-Natriuretic Peptide Total Protein Albumin Vitamin B12 Folate Urine Color Yellow Urine Appearance Cloudy Urine pH 5.5 Ur Specific [place] 1.015 Urine Protein 300 (3+) H Urine Glucose (UA) 250 H Urine Ketones Negative Urine Blood Trace H Urine Nitrite Negative Ur Leukocyte Esterase Moderate (2+) H Urine RBC 0-2 Urine WBC 21-50 H Ur Squamous Epith Cells 0-2 Urine Bacteria None Seen Hyaline Casts 0-2 Random Vancomycin 11.2 L Urine Opiates Screen Not Detected Ur Buprenorphine Scrn Positive H Ur Oxycodone Screen Positive H Urine Methadone Screen Not Detected Urine Fentanyl Screen Not Detected Ur Barbiturates Screen Not Detected Ur Phencyclidine Scrn Not Detected Ur Amphetamines Screen Not Detected U Benzodiazepines Scrn Not Detected Urine Cocaine Screen Not Detected U Marijuana (THC) Screen Not Detected C. difficile Tox B Gene Influenza Type A (PCR) Influenza Type B (PCR) RSV RNA Qual (PCR) SARS-CoV-2 RNA (RT-PCR) Blood Type Antibody Screen Crossmatch 11/09/24 11/09/24 11/09/24 06:58 10:23 10:24 WBC 19.8 H RBC 2.64 L Hgb 7.1 L Hct 23.2 L MCV 87.9 MCH 26.9 L MCHC 30.6 L RDW 16.0 Plt Count 353 MPV 10.0 Immature Gran % (Auto) Neut % (Auto) Lymph % (Auto) [place] % (Auto) Eos % (Auto) Baso % (Auto) Lymph # (Auto) [place] # (Auto) Eos # (Auto) Baso # (Auto) Abs Immat Gran (auto) Absolute Neuts (auto) Absolute Nucleated RBC 0.000 Nucleated RBC % (auto) 0.0 VBG pH VBG pCO2 VBG pO2 VBG HCO3 VBG O2 Saturation VBG Base Excess Sodium 133 L Potassium 3.5 Chloride 103 Carbon Dioxide 23 Anion Gap 11 L BUN 31 H Creatinine 4.02 H* Estim Creat Clear Calc 22.9 Estimated GFR 16 POC Glucose 192 H Random Glucose 135 H Lactic Acid Calcium 8.4 D Iron TIBC % Saturation Unsat Iron Binding Ferritin Total Bilirubin AST ALT Alkaline Phosphatase Troponin I High Sens B-Natriuretic Peptide Total Protein Albumin Vitamin B12 Folate Urine Color Urine Appearance Urine pH Ur Specific [place] Urine Protein Urine Glucose (UA) Urine Ketones Urine Blood Urine Nitrite Ur Leukocyte Esterase Urine RBC Urine WBC Ur Squamous Epith Cells Urine Bacteria Hyaline Casts Random Vancomycin Urine Opiates Screen Ur Buprenorphine Scrn Ur Oxycodone Screen Urine Methadone Screen Urine Fentanyl Screen Ur Barbiturates Screen Ur Phencyclidine Scrn Ur Amphetamines Screen U Benzodiazepines Scrn Urine Cocaine Screen U Marijuana (THC) Screen C. difficile Tox B Gene Influenza Type A (PCR) Influenza Type B (PCR) RSV RNA Qual (PCR) SARS-CoV-2 RNA (RT-PCR) Blood Type Antibody Screen Crossmatch 11/09/24 11/09/24 11/09/24 10:54 16:07 16:40 WBC RBC Hgb Hct MCV MCH MCHC RDW Plt Count MPV Immature Gran % (Auto) Neut % (Auto) Lymph % (Auto) [place] % (Auto) Eos % (Auto) Baso % (Auto) Lymph # (Auto) [place] # (Auto) Eos # (Auto) Baso # (Auto) Abs Immat Gran (auto) Absolute Neuts (auto) Absolute Nucleated RBC Nucleated RBC % (auto) VBG pH VBG pCO2 VBG pO2 VBG HCO3 VBG O2 Saturation VBG Base Excess Sodium Potassium Chloride Carbon Dioxide Anion Gap BUN Creatinine Estim Creat Clear Calc Estimated GFR POC Glucose 128 H 283 H Random Glucose Lactic Acid Calcium Iron TIBC % Saturation Unsat Iron Binding Ferritin Total Bilirubin AST ALT Alkaline Phosphatase Troponin I High Sens B-Natriuretic Peptide Total Protein Albumin Vitamin B12 Folate Urine Color Urine Appearance Urine pH Ur Specific [place] Urine Protein Urine Glucose (UA) Urine Ketones Urine Blood Urine Nitrite Ur Leukocyte Esterase Urine RBC Urine WBC Ur Squamous Epith Cells Urine Bacteria Hyaline Casts Random Vancomycin Urine Opiates Screen Ur Buprenorphine Scrn Ur Oxycodone Screen Urine Methadone Screen Urine Fentanyl Screen Ur Barbiturates Screen Ur Phencyclidine Scrn Ur Amphetamines Screen U Benzodiazepines Scrn Urine Cocaine Screen U Marijuana (THC) Screen C. difficile Tox B Gene Influenza Type A (PCR) Influenza Type B (PCR) RSV RNA Qual (PCR) SARS-CoV-2 RNA (RT-PCR) Blood Type O Positive Antibody Screen NEGATIVE Crossmatch See Detail 11/09/24 11/10/24 11/10/24 20:29 05:13 06:49 WBC RBC Hgb Hct MCV MCH MCHC RDW Plt Count MPV Immature Gran % (Auto) Neut % (Auto) Lymph % (Auto) [place] % (Auto) Eos % (Auto) Baso % (Auto) Lymph # (Auto) [place] # (Auto) Eos # (Auto) Baso # (Auto) Abs Immat Gran (auto) Absolute Neuts (auto) Absolute Nucleated RBC Nucleated RBC % (auto) VBG pH VBG pCO2 VBG pO2 VBG HCO3 VBG O2 Saturation VBG Base Excess Sodium Potassium Chloride Carbon Dioxide Anion Gap BUN Creatinine Estim Creat Clear Calc Estimated GFR POC Glucose 233 H 122 H Random Glucose Lactic Acid Calcium Iron TIBC % Saturation Unsat Iron Binding Ferritin Total Bilirubin AST ALT Alkaline Phosphatase Troponin I High Sens B-Natriuretic Peptide Total Protein Albumin Vitamin B12 Folate Urine Color Urine Appearance Urine pH Ur Specific [place] Urine Protein Urine Glucose (UA) Urine Ketones Urine Blood Urine Nitrite Ur Leukocyte Esterase Urine RBC Urine WBC Ur Squamous Epith Cells Urine Bacteria Hyaline Casts Random Vancomycin Urine Opiates Screen Ur Buprenorphine Scrn Ur Oxycodone Screen Urine Methadone Screen Urine Fentanyl Screen Ur Barbiturates Screen Ur Phencyclidine Scrn Ur Amphetamines Screen U Benzodiazepines Scrn Urine Cocaine Screen U Marijuana (THC) Screen C. difficile Tox B Gene NEGATIVE Influenza Type A (PCR) Influenza Type B (PCR) RSV RNA Qual (PCR) SARS-CoV-2 RNA (RT-PCR) Blood Type Antibody Screen Crossmatch 11/10/24 11/10/24 11/10/24 07:37 10:51 16:46 WBC 19.0 H RBC 2.54 L Hgb 6.7 L* Hct 22.1 L MCV 87.0 MCH 26.4 L MCHC 30.3 L RDW 16.0 Plt Count 373 MPV 10.3 Immature Gran % (Auto) Neut % (Auto) Lymph % (Auto) [place] % (Auto) Eos % (Auto) Baso % (Auto) Lymph # (Auto) [place] # (Auto) Eos # (Auto) Baso # (Auto) Abs Immat Gran (auto) Absolute Neuts (auto) Absolute Nucleated RBC 0.000 Nucleated RBC % (auto) 0.0 VBG pH VBG pCO2 VBG pO2 VBG HCO3 VBG O2 Saturation VBG Base Excess Sodium 132 L Potassium 3.8 Chloride 102 Carbon Dioxide 22 Anion Gap 12 BUN 41 H Creatinine 4.70 H* Estim Creat Clear Calc 19.6 Estimated GFR 13 POC Glucose 138 H 118 H Random Glucose 138 H Lactic Acid Calcium 8.2 L Iron 19 L TIBC 92 L % Saturation 21 Unsat Iron Binding 73 Ferritin 333 H Total Bilirubin AST ALT Alkaline Phosphatase Troponin I High Sens B-Natriuretic Peptide Total Protein Albumin Vitamin B12 276 Folate 6.3 Urine Color Urine Appearance Urine pH Ur Specific [place] Urine Protein Urine Glucose (UA) Urine Ketones Urine Blood Urine Nitrite Ur Leukocyte Esterase Urine RBC Urine WBC Ur Squamous Epith Cells Urine Bacteria Hyaline Casts Random Vancomycin Urine Opiates Screen Ur Buprenorphine Scrn Ur Oxycodone Screen Urine Methadone Screen Urine Fentanyl Screen Ur Barbiturates Screen Ur Phencyclidine Scrn Ur Amphetamines Screen U Benzodiazepines Scrn Urine Cocaine Screen U Marijuana (THC) Screen C. difficile Tox B Gene Influenza Type A (PCR) Influenza Type B (PCR) RSV RNA Qual (PCR) SARS-CoV-2 RNA (RT-PCR) Blood Type Antibody Screen Crossmatch 11/10/24 11/10/24 11/11/24 19:01 21:50 06:28 WBC 14.9 H RBC 3.22 L D Hgb 8.7 L D 8.5 L Hct 27.4 L D 27.8 L MCV 86.3 MCH 26.4 L MCHC 30.6 L RDW 15.8 Plt Count 365 MPV 10.5 Immature Gran % (Auto) Neut % (Auto) Lymph % (Auto) [place] % (Auto) Eos % (Auto) Baso % (Auto) Lymph # (Auto) [place] # (Auto) Eos # (Auto) Baso # (Auto) Abs Immat Gran (auto) Absolute Neuts (auto) Absolute Nucleated RBC 0.000 Nucleated RBC % (auto) 0.0 VBG pH VBG pCO2 VBG pO2 VBG HCO3 VBG O2 Saturation VBG Base Excess Sodium Potassium Chloride Carbon Dioxide Anion Gap BUN Creatinine Estim Creat Clear Calc Estimated GFR POC Glucose 196 H Random Glucose Lactic Acid Calcium Iron TIBC % Saturation Unsat Iron Binding Ferritin Total Bilirubin AST ALT Alkaline Phosphatase Troponin I High Sens B-Natriuretic Peptide Total Protein Albumin Vitamin B12 Folate Urine Color Urine Appearance Urine pH Ur Specific [place] Urine Protein Urine Glucose (UA) Urine Ketones Urine Blood Urine Nitrite Ur Leukocyte Esterase Urine RBC Urine WBC Ur Squamous Epith Cells Urine Bacteria Hyaline Casts Random Vancomycin 10.5 L Urine Opiates Screen Ur Buprenorphine Scrn Ur Oxycodone Screen Urine Methadone Screen Urine Fentanyl Screen Ur Barbiturates Screen Ur Phencyclidine Scrn Ur Amphetamines Screen U Benzodiazepines Scrn Urine Cocaine Screen U Marijuana (THC) Screen C. difficile Tox B Gene Influenza Type A (PCR) Influenza Type B (PCR) RSV RNA Qual (PCR) SARS-CoV-2 RNA (RT-PCR) Blood Type Antibody Screen Crossmatch 11/11/24 11/11/24 11/11/24 07:24 11:58 15:51 WBC RBC Hgb Hct MCV MCH MCHC RDW Plt Count MPV Immature Gran % (Auto) Neut % (Auto) Lymph % (Auto) [place] % (Auto) Eos % (Auto) Baso % (Auto) Lymph # (Auto) [place] # (Auto) Eos # (Auto) Baso # (Auto) Abs Immat Gran (auto) Absolute Neuts (auto) Absolute Nucleated RBC Nucleated RBC % (auto) VBG pH VBG pCO2 VBG pO2 VBG HCO3 VBG O2 Saturation VBG Base Excess Sodium Potassium Chloride Carbon Dioxide Anion Gap BUN Creatinine Estim Creat Clear Calc Estimated GFR POC Glucose 102 263 H 354 H* Random Glucose Lactic Acid Calcium Iron TIBC % Saturation Unsat Iron Binding Ferritin Total Bilirubin AST ALT Alkaline Phosphatase Troponin I High Sens B-Natriuretic Peptide Total Protein Albumin Vitamin B12 Folate Urine Color Urine Appearance Urine pH Ur Specific [place] Urine Protein Urine Glucose (UA) Urine Ketones Urine Blood Urine Nitrite Ur Leukocyte Esterase Urine RBC Urine WBC Ur Squamous Epith Cells Urine Bacteria Hyaline Casts Random Vancomycin Urine Opiates Screen Ur Buprenorphine Scrn Ur Oxycodone Screen Urine Methadone Screen Urine Fentanyl Screen Ur Barbiturates Screen Ur Phencyclidine Scrn Ur Amphetamines Screen U Benzodiazepines Scrn Urine Cocaine Screen U Marijuana (THC) Screen C. difficile Tox B Gene Influenza Type A (PCR) Influenza Type B (PCR) RSV RNA Qual (PCR) SARS-CoV-2 RNA (RT-PCR) Blood Type Antibody Screen Crossmatch 11/11/24 11/12/24 11/12/24 19:19 07:19 09:11 WBC RBC Hgb 9.6 L Hct 29.8 L MCV MCH MCHC RDW Plt Count MPV Immature Gran % (Auto) Neut % (Auto) Lymph % (Auto) [place] % (Auto) Eos % (Auto) Baso % (Auto) Lymph # (Auto) [place] # (Auto) Eos # (Auto) Baso # (Auto) Abs Immat Gran (auto) Absolute Neuts (auto) Absolute Nucleated RBC Nucleated RBC % (auto) VBG pH VBG pCO2 VBG pO2 VBG HCO3 VBG O2 Saturation VBG Base Excess Sodium Potassium Chloride Carbon Dioxide Anion Gap BUN Creatinine Estim Creat Clear Calc Estimated GFR POC Glucose 220 H 111 Random Glucose Lactic Acid Calcium Iron TIBC % Saturation Unsat Iron Binding Ferritin Total Bilirubin AST ALT Alkaline Phosphatase Troponin I High Sens B-Natriuretic Peptide Total Protein Albumin Vitamin B12 Folate Urine Color Urine Appearance Urine pH Ur Specific [place] Urine Protein Urine Glucose (UA) Urine Ketones Urine Blood Urine Nitrite Ur Leukocyte Esterase Urine RBC Urine WBC Ur Squamous Epith Cells Urine Bacteria Hyaline Casts Random Vancomycin Urine Opiates Screen Ur Buprenorphine Scrn Ur Oxycodone Screen Urine Methadone Screen Urine Fentanyl Screen Ur Barbiturates Screen Ur Phencyclidine Scrn Ur Amphetamines Screen U Benzodiazepines Scrn Urine Cocaine Screen U Marijuana (THC) Screen C. difficile Tox B Gene Influenza Type A (PCR) Influenza Type B (PCR) RSV RNA Qual (PCR) SARS-CoV-2 RNA (RT-PCR) Blood Type Antibody Screen Crossmatch 11/12/24 11/12/24 11/12/24 11:19 16:12 19:00 WBC RBC Hgb Hct MCV MCH MCHC RDW Plt Count MPV Immature Gran % (Auto) Neut % (Auto) Lymph % (Auto) [place] % (Auto) Eos % (Auto) Baso % (Auto) Lymph # (Auto) [place] # (Auto) Eos # (Auto) Baso # (Auto) Abs Immat Gran (auto) Absolute Neuts (auto) Absolute Nucleated RBC Nucleated RBC % (auto) VBG pH VBG pCO2 VBG pO2 VBG HCO3 VBG O2 Saturation VBG Base Excess Sodium Potassium Chloride Carbon Dioxide Anion Gap BUN Creatinine Estim Creat Clear Calc Estimated GFR POC Glucose 121 H 270 H Random Glucose Lactic Acid Calcium Iron TIBC % Saturation Unsat Iron Binding Ferritin Total Bilirubin AST ALT Alkaline Phosphatase Troponin I High Sens B-Natriuretic Peptide Total Protein Albumin Vitamin B12 Folate Urine Color Urine Appearance Urine pH Ur Specific [place] Urine Protein Urine Glucose (UA) Urine Ketones Urine Blood Urine Nitrite Ur Leukocyte Esterase Urine RBC Urine WBC Ur Squamous Epith Cells Urine Bacteria Hyaline Casts Random Vancomycin 11.1 L Urine Opiates Screen Ur Buprenorphine Scrn Ur Oxycodone Screen Urine Methadone Screen Urine Fentanyl Screen Ur Barbiturates Screen Ur Phencyclidine Scrn Ur Amphetamines Screen U Benzodiazepines Scrn Urine Cocaine Screen U Marijuana (THC) Screen C. difficile Tox B Gene Influenza Type A (PCR) Influenza Type B (PCR) RSV RNA Qual (PCR) SARS-CoV-2 RNA (RT-PCR) Blood Type Antibody Screen Crossmatch 11/12/24 11/13/24 11/13/24 20:48 07:15 10:24 WBC RBC Hgb Hct MCV MCH MCHC RDW Plt Count MPV Immature Gran % (Auto) Neut % (Auto) Lymph % (Auto) [place] % (Auto) Eos % (Auto) Baso % (Auto) Lymph # (Auto) [place] # (Auto) Eos # (Auto) Baso # (Auto) Abs Immat Gran (auto) Absolute Neuts (auto) Absolute Nucleated RBC Nucleated RBC % (auto) VBG pH VBG pCO2 VBG pO2 VBG HCO3 VBG O2 Saturation VBG Base Excess Sodium Potassium Chloride Carbon Dioxide Anion Gap BUN Creatinine Estim Creat Clear Calc Estimated GFR POC Glucose 173 H 99 148 H Random Glucose Lactic Acid Calcium Iron TIBC % Saturation Unsat Iron Binding Ferritin Total Bilirubin AST ALT Alkaline Phosphatase Troponin I High Sens B-Natriuretic Peptide Total Protein Albumin Vitamin B12 Folate Urine Color Urine Appearance Urine pH Ur Specific [place] Urine Protein Urine Glucose (UA) Urine Ketones Urine Blood Urine Nitrite Ur Leukocyte Esterase Urine RBC Urine WBC Ur Squamous Epith Cells Urine Bacteria Hyaline Casts Random Vancomycin Urine Opiates Screen Ur Buprenorphine Scrn Ur Oxycodone Screen Urine Methadone Screen Urine Fentanyl Screen Ur Barbiturates Screen Ur Phencyclidine Scrn Ur Amphetamines Screen U Benzodiazepines Scrn Urine Cocaine Screen U Marijuana (THC) Screen C. difficile Tox B Gene Influenza Type A (PCR) Influenza Type B (PCR) RSV RNA Qual (PCR) SARS-CoV-2 RNA (RT-PCR) Blood Type Antibody Screen Crossmatch 11/13/24 11/13/24 11/14/24 15:19 20:12 07:40 WBC RBC Hgb Hct MCV MCH MCHC RDW Plt Count MPV Immature Gran % (Auto) Neut % (Auto) Lymph % (Auto) [place] % (Auto) Eos % (Auto) Baso % (Auto) Lymph # (Auto) [place] # (Auto) Eos # (Auto) Baso # (Auto) Abs Immat Gran (auto) Absolute Neuts (auto) Absolute Nucleated RBC Nucleated RBC % (auto) VBG pH VBG pCO2 VBG pO2 VBG HCO3 VBG O2 Saturation VBG Base Excess Sodium Potassium Chloride Carbon Dioxide Anion Gap BUN Creatinine Estim Creat Clear Calc Estimated GFR POC Glucose 436 H* 277 H 105 Random Glucose Lactic Acid Calcium Iron TIBC % Saturation Unsat Iron Binding Ferritin Total Bilirubin AST ALT Alkaline Phosphatase Troponin I High Sens B-Natriuretic Peptide Total Protein Albumin Vitamin B12 Folate Urine Color Urine Appearance Urine pH Ur Specific [place] Urine Protein Urine Glucose (UA) Urine Ketones Urine Blood Urine Nitrite Ur Leukocyte Esterase Urine RBC Urine WBC Ur Squamous Epith Cells Urine Bacteria Hyaline Casts Random Vancomycin Urine Opiates Screen Ur Buprenorphine Scrn Ur Oxycodone Screen Urine Methadone Screen Urine Fentanyl Screen Ur Barbiturates Screen Ur Phencyclidine Scrn Ur Amphetamines Screen U Benzodiazepines Scrn Urine Cocaine Screen U Marijuana (THC) Screen C. difficile Tox B Gene Influenza Type A (PCR) Influenza Type B (PCR) RSV RNA Qual (PCR) SARS-CoV-2 RNA (RT-PCR) Blood Type Antibody Screen Crossmatch 11/14/24 11/14/24 11/14/24 11:31 16:19 20:51 WBC RBC Hgb Hct MCV MCH MCHC RDW Plt Count MPV Immature Gran % (Auto) Neut % (Auto) Lymph % (Auto) [place] % (Auto) Eos % (Auto) Baso % (Auto) Lymph # (Auto) [place] # (Auto) Eos # (Auto) Baso # (Auto) Abs Immat Gran (auto) Absolute Neuts (auto) Absolute Nucleated RBC Nucleated RBC % (auto) VBG pH VBG pCO2 VBG pO2 VBG HCO3 VBG O2 Saturation VBG Base Excess Sodium Potassium Chloride Carbon Dioxide Anion Gap BUN Creatinine Estim Creat Clear Calc Estimated GFR POC Glucose 159 H 229 H 242 H Random Glucose Lactic Acid Calcium Iron TIBC % Saturation Unsat Iron Binding Ferritin Total Bilirubin AST ALT Alkaline Phosphatase Troponin I High Sens B-Natriuretic Peptide Total Protein Albumin Vitamin B12 Folate Urine Color Urine Appearance Urine pH Ur Specific [place] Urine Protein Urine Glucose (UA) Urine Ketones Urine Blood Urine Nitrite Ur Leukocyte Esterase Urine RBC Urine WBC Ur Squamous Epith Cells Urine Bacteria Hyaline Casts Random Vancomycin Urine Opiates Screen Ur Buprenorphine Scrn Ur Oxycodone Screen Urine Methadone Screen Urine Fentanyl Screen Ur Barbiturates Screen Ur Phencyclidine Scrn Ur Amphetamines Screen U Benzodiazepines Scrn Urine Cocaine Screen U Marijuana (THC) Screen C. difficile Tox B Gene Influenza Type A (PCR) Influenza Type B (PCR) RSV RNA Qual (PCR) SARS-CoV-2 RNA (RT-PCR) Blood Type Antibody Screen Crossmatch 11/15/24 11/15/24 11/15/24 07:21 13:09 16:01 WBC RBC Hgb Hct MCV MCH MCHC RDW Plt Count MPV Immature Gran % (Auto) Neut % (Auto) Lymph % (Auto) [place] % (Auto) Eos % (Auto) Baso % (Auto) Lymph # (Auto) [place] # (Auto) Eos # (Auto) Baso # (Auto) Abs Immat Gran (auto) Absolute Neuts (auto) Absolute Nucleated RBC Nucleated RBC % (auto) VBG pH VBG pCO2 VBG pO2 VBG HCO3 VBG O2 Saturation VBG Base Excess Sodium Potassium Chloride Carbon Dioxide Anion Gap BUN Creatinine Estim Creat Clear Calc Estimated GFR POC Glucose 125 H 144 H 237 H Random Glucose Lactic Acid Calcium Iron TIBC % Saturation Unsat Iron Binding Ferritin Total Bilirubin AST ALT Alkaline Phosphatase Troponin I High Sens B-Natriuretic Peptide Total Protein Albumin Vitamin B12 Folate Urine Color Urine Appearance Urine pH Ur Specific [place] Urine Protein Urine Glucose (UA) Urine Ketones Urine Blood Urine Nitrite Ur Leukocyte Esterase Urine RBC Urine WBC Ur Squamous Epith Cells Urine Bacteria Hyaline Casts Random Vancomycin Urine Opiates Screen Ur Buprenorphine Scrn Ur Oxycodone Screen Urine Methadone Screen Urine Fentanyl Screen Ur Barbiturates Screen Ur Phencyclidine Scrn Ur Amphetamines Screen U Benzodiazepines Scrn Urine Cocaine Screen U Marijuana (THC) Screen C. difficile Tox B Gene Influenza Type A (PCR) Influenza Type B (PCR) RSV RNA Qual (PCR) SARS-CoV-2 RNA (RT-PCR) Blood Type Antibody Screen Crossmatch 11/15/24 11/15/24 11/16/24 18:59 19:32 07:23 WBC RBC Hgb Hct MCV MCH MCHC RDW Plt Count MPV Immature Gran % (Auto) Neut % (Auto) Lymph % (Auto) [place] % (Auto) Eos % (Auto) Baso % (Auto) Lymph # (Auto) [place] # (Auto) Eos # (Auto) Baso # (Auto) Abs Immat Gran (auto) Absolute Neuts (auto) Absolute Nucleated RBC Nucleated RBC % (auto) VBG pH VBG pCO2 VBG pO2 VBG HCO3 VBG O2 Saturation VBG Base Excess Sodium Potassium Chloride Carbon Dioxide Anion Gap BUN Creatinine Estim Creat Clear Calc Estimated GFR POC Glucose 179 H 112 Random Glucose Lactic Acid Calcium Iron TIBC % Saturation Unsat Iron Binding Ferritin Total Bilirubin AST ALT Alkaline Phosphatase Troponin I High Sens B-Natriuretic Peptide Total Protein Albumin Vitamin B12 Folate Urine Color Urine Appearance Urine pH Ur Specific [place] Urine Protein Urine Glucose (UA) Urine Ketones Urine Blood Urine Nitrite Ur Leukocyte Esterase Urine RBC Urine WBC Ur Squamous Epith Cells Urine Bacteria Hyaline Casts Random Vancomycin 10.1 L Urine Opiates Screen Ur Buprenorphine Scrn Ur Oxycodone Screen Urine Methadone Screen Urine Fentanyl Screen Ur Barbiturates Screen Ur Phencyclidine Scrn Ur Amphetamines Screen U Benzodiazepines Scrn Urine Cocaine Screen U Marijuana (THC) Screen C. difficile Tox B Gene Influenza Type A (PCR) Influenza Type B (PCR) RSV RNA Qual (PCR) SARS-CoV-2 RNA (RT-PCR) Blood Type Antibody Screen Crossmatch 11/16/24 11/16/24 11/16/24 11:33 16:25 20:48 WBC RBC Hgb Hct MCV MCH MCHC RDW Plt Count MPV Immature Gran % (Auto) Neut % (Auto) Lymph % (Auto) [place] % (Auto) Eos % (Auto) Baso % (Auto) Lymph # (Auto) [place] # (Auto) Eos # (Auto) Baso # (Auto) Abs Immat Gran (auto) Absolute Neuts (auto) Absolute Nucleated RBC Nucleated RBC % (auto) VBG pH VBG pCO2 VBG pO2 VBG HCO3 VBG O2 Saturation VBG Base Excess Sodium Potassium Chloride Carbon Dioxide Anion Gap BUN Creatinine Estim Creat Clear Calc Estimated GFR POC Glucose 172 H 192 H 255 H Random Glucose Lactic Acid Calcium Iron TIBC % Saturation Unsat Iron Binding Ferritin Total Bilirubin AST ALT Alkaline Phosphatase Troponin I High Sens B-Natriuretic Peptide Total Protein Albumin Vitamin B12 Folate Urine Color Urine Appearance Urine pH Ur Specific [place] Urine Protein Urine Glucose (UA) Urine Ketones Urine Blood Urine Nitrite Ur Leukocyte Esterase Urine RBC Urine WBC Ur Squamous Epith Cells Urine Bacteria Hyaline Casts Random Vancomycin Urine Opiates Screen Ur Buprenorphine Scrn Ur Oxycodone Screen Urine Methadone Screen Urine Fentanyl Screen Ur Barbiturates Screen Ur Phencyclidine Scrn Ur Amphetamines Screen U Benzodiazepines Scrn Urine Cocaine Screen U Marijuana (THC) Screen C. difficile Tox B Gene Influenza Type A (PCR) Influenza Type B (PCR) RSV RNA Qual (PCR) SARS-CoV-2 RNA (RT-PCR) Blood Type Antibody Screen Crossmatch 11/16/24 11/17/24 11/17/24 22:39 07:54 11:11 WBC RBC Hgb Hct MCV MCH MCHC RDW Plt Count MPV Immature Gran % (Auto) Neut % (Auto) Lymph % (Auto) [place] % (Auto) Eos % (Auto) Baso % (Auto) Lymph # (Auto) [place] # (Auto) Eos # (Auto) Baso # (Auto) Abs Immat Gran (auto) Absolute Neuts (auto) Absolute Nucleated RBC Nucleated RBC % (auto) VBG pH VBG pCO2 VBG pO2 VBG HCO3 VBG O2 Saturation VBG Base Excess Sodium Potassium Chloride Carbon Dioxide Anion Gap BUN Creatinine Estim Creat Clear Calc Estimated GFR POC Glucose 247 H 116 H 218 H Random Glucose Lactic Acid Calcium Iron TIBC % Saturation Unsat Iron Binding Ferritin Total Bilirubin AST ALT Alkaline Phosphatase Troponin I High Sens B-Natriuretic Peptide Total Protein Albumin Vitamin B12 Folate Urine Color Urine Appearance Urine pH Ur Specific [place] Urine Protein Urine Glucose (UA) Urine Ketones Urine Blood Urine Nitrite Ur Leukocyte Esterase Urine RBC Urine WBC Ur Squamous Epith Cells Urine Bacteria Hyaline Casts Random Vancomycin Urine Opiates Screen Ur Buprenorphine Scrn Ur Oxycodone Screen Urine Methadone Screen Urine Fentanyl Screen Ur Barbiturates Screen Ur Phencyclidine Scrn Ur Amphetamines Screen U Benzodiazepines Scrn Urine Cocaine Screen U Marijuana (THC) Screen C. difficile Tox B Gene Influenza Type A (PCR) Influenza Type B (PCR) RSV RNA Qual (PCR) SARS-CoV-2 RNA (RT-PCR) Blood Type Antibody Screen Crossmatch 11/17/24 11/17/24 11/17/24 16:09 19:04 20:28 WBC RBC Hgb Hct MCV MCH MCHC RDW Plt Count MPV Immature Gran % (Auto) Neut % (Auto) Lymph % (Auto) [place] % (Auto) Eos % (Auto) Baso % (Auto) Lymph # (Auto) [place] # (Auto) Eos # (Auto) Baso # (Auto) Abs Immat Gran (auto) Absolute Neuts (auto) Absolute Nucleated RBC Nucleated RBC % (auto) VBG pH VBG pCO2 VBG pO2 VBG HCO3 VBG O2 Saturation VBG Base Excess Sodium Potassium Chloride Carbon Dioxide Anion Gap BUN Creatinine Estim Creat Clear Calc Estimated GFR POC Glucose 238 H 360 H* Random Glucose Lactic Acid Calcium Iron TIBC % Saturation Unsat Iron Binding Ferritin Total Bilirubin AST ALT Alkaline Phosphatase Troponin I High Sens B-Natriuretic Peptide Total Protein Albumin Vitamin B12 Folate Urine Color Urine Appearance Urine pH Ur Specific [place] Urine Protein Urine Glucose (UA) Urine Ketones Urine Blood Urine Nitrite Ur Leukocyte Esterase Urine RBC Urine WBC Ur Squamous Epith Cells Urine Bacteria Hyaline Casts Random Vancomycin 10.3 L Urine Opiates Screen Ur Buprenorphine Scrn Ur Oxycodone Screen Urine Methadone Screen Urine Fentanyl Screen Ur Barbiturates Screen Ur Phencyclidine Scrn Ur Amphetamines Screen U Benzodiazepines Scrn Urine Cocaine Screen U Marijuana (THC) Screen C. difficile Tox B Gene Influenza Type A (PCR) Influenza Type B (PCR) RSV RNA Qual (PCR) SARS-CoV-2 RNA (RT-PCR) Blood Type Antibody Screen Crossmatch 11/18/24 11/18/24 11/18/24 07:19 10:06 11:52 WBC 15.3 H RBC 3.52 L Hgb 9.5 L Hct 30.4 L MCV 86.4 MCH 27.0 MCHC 31.3 RDW 15.7 Plt Count 411 H MPV 10.4 Immature Gran % (Auto) Neut % (Auto) Lymph % (Auto) [place] % (Auto) Eos % (Auto) Baso % (Auto) Lymph # (Auto) [place] # (Auto) Eos # (Auto) Baso # (Auto) Abs Immat Gran (auto) Absolute Neuts (auto) Absolute Nucleated RBC 0.000 Nucleated RBC % (auto) 0.0 VBG pH VBG pCO2 VBG pO2 VBG HCO3 VBG O2 Saturation VBG Base Excess Sodium 130 L Potassium 3.2 L Chloride 102 Carbon Dioxide 19 L Anion Gap 12 BUN 31 H Creatinine 3.50 H Estim Creat Clear Calc 26.3 Estimated GFR 19 POC Glucose 133 H 311 H Random Glucose 206 H Lactic Acid Calcium 8.8 D Iron TIBC % Saturation Unsat Iron Binding Ferritin Total Bilirubin AST ALT Alkaline Phosphatase Troponin I High Sens B-Natriuretic Peptide Total Protein Albumin Vitamin B12 Folate Urine Color Urine Appearance Urine pH Ur Specific [place] Urine Protein Urine Glucose (UA) Urine Ketones Urine Blood Urine Nitrite Ur Leukocyte Esterase Urine RBC Urine WBC Ur Squamous Epith Cells Urine Bacteria Hyaline Casts Random Vancomycin Urine Opiates Screen Ur Buprenorphine Scrn Ur Oxycodone Screen Urine Methadone Screen Urine Fentanyl Screen Ur Barbiturates Screen Ur Phencyclidine Scrn Ur Amphetamines Screen U Benzodiazepines Scrn Urine Cocaine Screen U Marijuana (THC) Screen C. difficile Tox B Gene Influenza Type A (PCR) Influenza Type B (PCR) RSV RNA Qual (PCR) SARS-CoV-2 RNA (RT-PCR) Blood Type O Positive Antibody Screen NEGATIVE Crossmatch 11/18/24 11/18/24 11/19/24 16:14 20:55 07:15 WBC RBC Hgb Hct MCV MCH MCHC RDW Plt Count MPV Immature Gran % (Auto) Neut % (Auto) Lymph % (Auto) [place] % (Auto) Eos % (Auto) Baso % (Auto) Lymph # (Auto) [place] # (Auto) Eos # (Auto) Baso # (Auto) Abs Immat Gran (auto) Absolute Neuts (auto) Absolute Nucleated RBC Nucleated RBC % (auto) VBG pH VBG pCO2 VBG pO2 VBG HCO3 VBG O2 Saturation VBG Base Excess Sodium Potassium Chloride Carbon Dioxide Anion Gap BUN Creatinine Estim Creat Clear Calc Estimated GFR POC Glucose 268 H 234 H 122 H Random Glucose Lactic Acid Calcium Iron TIBC % Saturation Unsat Iron Binding Ferritin Total Bilirubin AST ALT Alkaline Phosphatase Troponin I High Sens B-Natriuretic Peptide Total Protein Albumin Vitamin B12 Folate Urine Color Urine Appearance Urine pH Ur Specific [place] Urine Protein Urine Glucose (UA) Urine Ketones Urine Blood Urine Nitrite Ur Leukocyte Esterase Urine RBC Urine WBC Ur Squamous Epith Cells Urine Bacteria Hyaline Casts Random Vancomycin Urine Opiates Screen Ur Buprenorphine Scrn Ur Oxycodone Screen Urine Methadone Screen Urine Fentanyl Screen Ur Barbiturates Screen Ur Phencyclidine Scrn Ur Amphetamines Screen U Benzodiazepines Scrn Urine Cocaine Screen U Marijuana (THC) Screen C. difficile Tox B Gene Influenza Type A (PCR) Influenza Type B (PCR) RSV RNA Qual (PCR) SARS-CoV-2 RNA (RT-PCR) Blood Type Antibody Screen Crossmatch 11/19/24 11/19/24 11/19/24 14:29 18:01 19:11 WBC RBC Hgb Hct MCV MCH MCHC RDW Plt Count MPV Immature Gran % (Auto) Neut % (Auto) Lymph % (Auto) [place] % (Auto) Eos % (Auto) Baso % (Auto) Lymph # (Auto) [place] # (Auto) Eos # (Auto) Baso # (Auto) Abs Immat Gran (auto) Absolute Neuts (auto) Absolute Nucleated RBC Nucleated RBC % (auto) VBG pH VBG pCO2 VBG pO2 VBG HCO3 VBG O2 Saturation VBG Base Excess Sodium Potassium Chloride Carbon Dioxide Anion Gap BUN Creatinine Estim Creat Clear Calc Estimated GFR POC Glucose 152 H 277 H Random Glucose Lactic Acid Calcium Iron TIBC % Saturation Unsat Iron Binding Ferritin Total Bilirubin AST ALT Alkaline Phosphatase Troponin I High Sens B-Natriuretic Peptide Total Protein Albumin Vitamin B12 Folate Urine Color Urine Appearance Urine pH Ur Specific [place] Urine Protein Urine Glucose (UA) Urine Ketones Urine Blood Urine Nitrite Ur Leukocyte Esterase Urine RBC Urine WBC Ur Squamous Epith Cells Urine Bacteria Hyaline Casts Random Vancomycin 12.8 L Urine Opiates Screen Ur Buprenorphine Scrn Ur Oxycodone Screen Urine Methadone Screen Urine Fentanyl Screen Ur Barbiturates Screen Ur Phencyclidine Scrn Ur Amphetamines Screen U Benzodiazepines Scrn Urine Cocaine Screen U Marijuana (THC) Screen C. difficile Tox B Gene Influenza Type A (PCR) Influenza Type B (PCR) RSV RNA Qual (PCR) SARS-CoV-2 RNA (RT-PCR) Blood Type Antibody Screen Crossmatch 11/19/24 11/20/24 11/20/24 21:07 07:11 11:47 WBC RBC Hgb Hct MCV MCH MCHC RDW Plt Count MPV Immature Gran % (Auto) Neut % (Auto) Lymph % (Auto) [place] % (Auto) Eos % (Auto) Baso % (Auto) Lymph # (Auto) [place] # (Auto) Eos # (Auto) Baso # (Auto) Abs Immat Gran (auto) Absolute Neuts (auto) Absolute Nucleated RBC Nucleated RBC % (auto) VBG pH VBG pCO2 VBG pO2 VBG HCO3 VBG O2 Saturation VBG Base Excess Sodium Potassium Chloride Carbon Dioxide Anion Gap BUN Creatinine Estim Creat Clear Calc Estimated GFR POC Glucose 316 H 214 H 274 H Random Glucose Lactic Acid Calcium Iron TIBC % Saturation Unsat Iron Binding Ferritin Total Bilirubin AST ALT Alkaline Phosphatase Troponin I High Sens B-Natriuretic Peptide Total Protein Albumin Vitamin B12 Folate Urine Color Urine Appearance Urine pH Ur Specific [place] Urine Protein Urine Glucose (UA) Urine Ketones Urine Blood Urine Nitrite Ur Leukocyte Esterase Urine RBC Urine WBC Ur Squamous Epith Cells Urine Bacteria Hyaline Casts Random Vancomycin Urine Opiates Screen Ur Buprenorphine Scrn Ur Oxycodone Screen Urine Methadone Screen Urine Fentanyl Screen Ur Barbiturates Screen Ur Phencyclidine Scrn Ur Amphetamines Screen U Benzodiazepines Scrn Urine Cocaine Screen U Marijuana (THC) Screen C. difficile Tox B Gene Influenza Type A (PCR) Influenza Type B (PCR) RSV RNA Qual (PCR) SARS-CoV-2 RNA (RT-PCR) Blood Type Antibody Screen Crossmatch 11/20/24 11/20/24 11/21/24 16:30 19:53 07:56 WBC RBC Hgb Hct MCV MCH MCHC RDW Plt Count MPV Immature Gran % (Auto) Neut % (Auto) Lymph % (Auto) [place] % (Auto) Eos % (Auto) Baso % (Auto) Lymph # (Auto) [place] # (Auto) Eos # (Auto) Baso # (Auto) Abs Immat Gran (auto) Absolute Neuts (auto) Absolute Nucleated RBC Nucleated RBC % (auto) VBG pH VBG pCO2 VBG pO2 VBG HCO3 VBG O2 Saturation VBG Base Excess Sodium Potassium Chloride Carbon Dioxide Anion Gap BUN Creatinine Estim Creat Clear Calc Estimated GFR POC Glucose 281 H 279 H 159 H Random Glucose Lactic Acid Calcium Iron TIBC % Saturation Unsat Iron Binding Ferritin Total Bilirubin AST ALT Alkaline Phosphatase Troponin I High Sens B-Natriuretic Peptide Total Protein Albumin Vitamin B12 Folate Urine Color Urine Appearance Urine pH Ur Specific [place] Urine Protein Urine Glucose (UA) Urine Ketones Urine Blood Urine Nitrite Ur Leukocyte Esterase Urine RBC Urine WBC Ur Squamous Epith Cells Urine Bacteria Hyaline Casts Random Vancomycin Urine Opiates Screen Ur Buprenorphine Scrn Ur Oxycodone Screen Urine Methadone Screen Urine Fentanyl Screen Ur Barbiturates Screen Ur Phencyclidine Scrn Ur Amphetamines Screen U Benzodiazepines Scrn Urine Cocaine Screen U Marijuana (THC) Screen C. difficile Tox B Gene Influenza Type A (PCR) Influenza Type B (PCR) RSV RNA Qual (PCR) SARS-CoV-2 RNA (RT-PCR) Blood Type Antibody Screen Crossmatch 11/21/24 11/21/24 11/21/24 11:44 16:21 20:38 WBC RBC Hgb Hct MCV MCH MCHC RDW Plt Count MPV Immature Gran % (Auto) Neut % (Auto) Lymph % (Auto) [place] % (Auto) Eos % (Auto) Baso % (Auto) Lymph # (Auto) [place] # (Auto) Eos # (Auto) Baso # (Auto) Abs Immat Gran (auto) Absolute Neuts (auto) Absolute Nucleated RBC Nucleated RBC % (auto) VBG pH VBG pCO2 VBG pO2 VBG HCO3 VBG O2 Saturation VBG Base Excess Sodium Potassium Chloride Carbon Dioxide Anion Gap BUN Creatinine Estim Creat Clear Calc Estimated GFR POC Glucose 192 H 267 H 180 H Random Glucose Lactic Acid Calcium Iron TIBC % Saturation Unsat Iron Binding Ferritin Total Bilirubin AST ALT Alkaline Phosphatase Troponin I High Sens B-Natriuretic Peptide Total Protein Albumin Vitamin B12 Folate Urine Color Urine Appearance Urine pH Ur Specific [place] Urine Protein Urine Glucose (UA) Urine Ketones Urine Blood Urine Nitrite Ur Leukocyte Esterase Urine RBC Urine WBC Ur Squamous Epith Cells Urine Bacteria Hyaline Casts Random Vancomycin Urine Opiates Screen Ur Buprenorphine Scrn Ur Oxycodone Screen Urine Methadone Screen Urine Fentanyl Screen Ur Barbiturates Screen Ur Phencyclidine Scrn Ur Amphetamines Screen U Benzodiazepines Scrn Urine Cocaine Screen U Marijuana (THC) Screen C. difficile Tox B Gene Influenza Type A (PCR) Influenza Type B (PCR) RSV RNA Qual (PCR) SARS-CoV-2 RNA (RT-PCR) Blood Type Antibody Screen Crossmatch 11/22/24 11/22/24 11/22/24 08:00 14:07 16:10 WBC 14.2 H RBC 4.01 L Hgb 10.6 L Hct 33.1 L MCV 82.5 MCH 26.4 L MCHC 32.0 RDW 15.4 Plt Count 426 H MPV 10.4 Immature Gran % (Auto) Neut % (Auto) Lymph % (Auto) [place] % (Auto) Eos % (Auto) Baso % (Auto) Lymph # (Auto) [place] # (Auto) Eos # (Auto) Baso # (Auto) Abs Immat Gran (auto) Absolute Neuts (auto) Absolute Nucleated RBC 0.000 Nucleated RBC % (auto) 0.0 VBG pH VBG pCO2 VBG pO2 VBG HCO3 VBG O2 Saturation VBG Base Excess Sodium 131 L Potassium 3.9 D Chloride 98 Carbon Dioxide 24 Anion Gap 13 BUN 29 H Creatinine 2.10 H Estim Creat Clear Calc 43.9 Estimated GFR 34 POC Glucose 149 H 253 H Random Glucose 198 H Lactic Acid Calcium 8.9 Iron TIBC % Saturation Unsat Iron Binding Ferritin Total Bilirubin AST ALT Alkaline Phosphatase Troponin I High Sens B-Natriuretic Peptide Total Protein Albumin Vitamin B12 Folate Urine Color Urine Appearance Urine pH Ur Specific [place] Urine Protein Urine Glucose (UA) Urine Ketones Urine Blood Urine Nitrite Ur Leukocyte Esterase Urine RBC Urine WBC Ur Squamous Epith Cells Urine Bacteria Hyaline Casts Random Vancomycin 12.7 L Urine Opiates Screen Ur Buprenorphine Scrn Ur Oxycodone Screen Urine Methadone Screen Urine Fentanyl Screen Ur Barbiturates Screen Ur Phencyclidine Scrn Ur Amphetamines Screen U Benzodiazepines Scrn Urine Cocaine Screen U Marijuana (THC) Screen C. difficile Tox B Gene Influenza Type A (PCR) Influenza Type B (PCR) RSV RNA Qual (PCR) SARS-CoV-2 RNA (RT-PCR) Blood Type Antibody Screen Crossmatch 11/22/24 11/23/24 11/23/24 20:12 07:45 11:25 WBC RBC Hgb Hct MCV MCH MCHC RDW Plt Count MPV Immature Gran % (Auto) Neut % (Auto) Lymph % (Auto) [place] % (Auto) Eos % (Auto) Baso % (Auto) Lymph # (Auto) [place] # (Auto) Eos # (Auto) Baso # (Auto) Abs Immat Gran (auto) Absolute Neuts (auto) Absolute Nucleated RBC Nucleated RBC % (auto) VBG pH VBG pCO2 VBG pO2 VBG HCO3 VBG O2 Saturation VBG Base Excess Sodium Potassium Chloride Carbon Dioxide Anion Gap BUN Creatinine Estim Creat Clear Calc Estimated GFR POC Glucose 355 H* 225 H 106 Random Glucose Lactic Acid Calcium Iron TIBC % Saturation Unsat Iron Binding Ferritin Total Bilirubin AST ALT Alkaline Phosphatase Troponin I High Sens B-Natriuretic Peptide Total Protein Albumin Vitamin B12 Folate Urine Color Urine Appearance Urine pH Ur Specific [place] Urine Protein Urine Glucose (UA) Urine Ketones Urine Blood Urine Nitrite Ur Leukocyte Esterase Urine RBC Urine WBC Ur Squamous Epith Cells Urine Bacteria Hyaline Casts Random Vancomycin Urine Opiates Screen Ur Buprenorphine Scrn Ur Oxycodone Screen Urine Methadone Screen Urine Fentanyl Screen Ur Barbiturates Screen Ur Phencyclidine Scrn Ur Amphetamines Screen U Benzodiazepines Scrn Urine Cocaine Screen U Marijuana (THC) Screen C. difficile Tox B Gene Influenza Type A (PCR) Influenza Type B (PCR) RSV RNA Qual (PCR) SARS-CoV-2 RNA (RT-PCR) Blood Type Antibody Screen Crossmatch Airway Mallampati Class: III TM Dist: >3cm Neck ROM: Limited Loose/Missing/Broken Teeth: Yes, Upper and Lower Heart: RRR Lungs: CTA Assessment and Plan Assessment Anesthesia Assessment: Anesthesia Plan Discussed Final Anesthetic Review Family History of Problems with Anesthesia: No History of Problems with Anesthesia: No ASA Class: IV Final Preanesthetic Review: Meds/Allgs Chart Reviewed, Consent Obtained/Reviewed and Anes Risks/Benef Reviewed Patient Risk: High Procedure Risk: Low Anesthetic Plan Anesthetic Plan: GA Disposition: Standard PACU
--- NOTE | 2024-11-23 13:45 | MHC.SHP ---
Pre-Procedural Eval Section A - 24 Hr Update-Section A only Date of Service: 11/23/24 The patient is an INPATIENT: Yes Changes since office visit: Yes Patient answered all questions; No Cold of Flu in the past 2 weeks, No New Medical Problems and No Changes in Medication The patient has been examined within 24 hours of the surgical procedure. The History & Physical has been completed within 30 days and I have reviewed it.: Yes Section B - Complete if H&P > 30 days Chief Complaint: Septic shock Allergies: Allergies Allergy/AdvReac Type Severity Reaction Status Date / Time No Known Allergies Allergy Verified 11/23/24 13:36 [No Known Allergies*] Plan Diagnosis/Plan: Unchanged I have reviewed the history and physical and performed a pertinent physical examination on my patient. No changes have occurred unless specified. Time Spent With Patient Time: Total time managing care of this patient today ____ minutes.
--- NOTE | 2024-11-23 15:13 | MHC.RECOVRN ---
Briefly checked in with pt to provide support. Pt reports doing well overall and believes he is discharging tomorrow. CM also reports discharge probable tomorrow. Pt aware Suboxone will be sent to [facility]. Denies questions or concerns for t/w. Discussed with Catina Cantu APRN.
--- NOTE | 2024-11-23 15:27 | W.PM.OPN ---
Operative Note Operative Note Date of Service: 11/23/24 Narrative: Preoperative diagnosis: Skin ulcer right hip, right groin and left foot Postoperative diagnosis: Same Procedure: Debridement of skin ulcer right hip, right groin and left foot Surgeon: Rocky Araya MD Net Applications Developer: Rolanda Steel PA-C, KATIA Bolton Anesthesia: General LMA Indications for procedure: 44-year-old male patient with history of IVDA, diabetes, end-stage renal disease on hemodialysis presenting with multiple skin ulcers throughout his body most significantly in his right hip, right groin and left foot. He presents today for debridement. Operative findings: Full-thickness skin ulceration noted in the lateral right hip/thigh measuring 8 x 5 cm extending into the subcutaneous tissue. Skin excoriation in the right groin with necrotic overlying skin and subcutaneous tissue measuring at least 5 by 5 cm. Left foot with chronic callus with underlying ulceration. Specimen: None Estimated blood loss: 2 mL Complications: None Procedure details: Patient was brought to the OR and placed in a supine position. After administering general anesthesia the patient's right thigh and groin were prepped with Betadine as well as the left foot. These were then draped in a sterile fashion. A surgical time-out was called the consent confirmed. Patient has been on ongoing antibiotics including vanco and Levaquin. Beginning in the right right groin the necrotic skin was excised using a scissor and necrotic ulcer and subcutaneous tissue debrided using a scalpel down to viable, healthy tissue. In a similar fashion the ulcer in the right thigh was excised of its cadaveric skin down to viable tissue within the subcutaneous tissue. This was then irrigated with the Pulsavac. Thick callus in the foot was then excised using a combination of scissors and blunt dissection as well as a large curette. A large amount of thick callused skin was removed. Several small ulcers were noted beneath the callus including in the medial distal stump of the TMA. In addition a larger heel ulcer was identified and completely debrided down to viable tissue. Wounds were then cleansed and sterile dressings applied including silver alginate to the right thigh and groin wounds followed by ABD pad and paper tape. The left foot was dressed with ABD pad and Kerlix. Both extremities were padded with pillows. The patient tolerated the procedure well. He was transferred to PACU in stable condition.
[2024-11-23] MEDS: fentaNYL citrate/PF 100 MCG/2 ML VIAL 25 MCG IVPUSH ×8 (15:31→16:20)
[2024-11-23 17:14] LABS: Glucose, Whole Blood 116 mg/dL (60-115)
[2024-11-23] MEDS: Morphine Sulfate 2 MG/ML CARTRIDGE 5 MG IVPUSH ×2 (17:19→21:21)
[2024-11-23] MEDS: Apixaban 5 MG TABLET PO (20:22)
[2024-11-23] MEDS: Atorvastatin Calcium 40 MG TABLET PO (20:22)
[2024-11-23 20:42] LABS: Glucose, Whole Blood 267 mg/dL (60-115)
[2024-11-24] MEDS: oxyCODONE HCl Immed Release 5 MG TABLET 10 MG PO ×5 (01:36→21:02)
[2024-11-24] MEDS: Morphine Sulfate 2 MG/ML CARTRIDGE 5 MG IVPUSH ×5 (03:23→23:41)
[2024-11-24 03:34] VITALS: BP 99/55; PULSE 96; RESP 18; TEMP 36.5; O2SAT 99
[2024-11-24] MEDS: Omeprazole 20 MG CAPSULE.DR PO (06:02)
[2024-11-24 07:17] VITALS: BP 105/58; PULSE 86; RESP 14; TEMP 36.9; O2SAT 97
[2024-11-24 07:51] LABS: Glucose, Whole Blood 222 mg/dL (60-115)
--- NOTE | 2024-11-24 08:44 | P.PNGS_ITS ---
Subjective Subjective Date of Service: 11/24/24 Interval history: Patient complaining of incisional pain especially in the groins. Pain medication does help for a short period of time Physical Exam 2 Vital Signs: Vital Signs: Last Vital Signs Temp 98.5 F 11/24/24 07:17 Pulse 86 11/24/24 07:17 Resp 14 11/24/24 07:17 BP 105/58 L 11/24/24 07:17 Pulse Ox 97 11/24/24 07:17 O2 Del Method Room Air 11/24/24 07:17 O2 Flow Rate 2 11/24/24 03:34 Oxygen Flow Rate 4 11/05/24 04:40 BMI result Body Mass Index 27.1 Const: General: no acute distress Nutritional Appearance: well nourished Orientation/consciousness: patient oriented x3 Resp: Effort & Inspection: normal respiratory effort Skin: Other: Dressings to the right thigh and hip, bilateral groins and foot are intact Neuro: General: patient oriented x3 Objective Data Active Medications Acetaminophen (Acetaminophen 325 Mg Tablet) 650 mg PO Q6H PRN PRN Reason: Pain, Mild 1-3,fever,headache Last Admin: 11/14/24 16:13 Dose: 650 mg Documented By: KIM Al Hydroxide/Mg Hydroxide (Magnesium Hydrox/Alum Hydrox 30 Ml Oral.Susp) 30 ml PO Q4H PRN PRN Reason: Heartburn Albuterol Sulfate (Albuterol Sulfate 90 Mcg 8 Gm Inhaler) 1 puff INHALE RQ6H PRN PRN Reason: Shortness of Breath/Wheezing Last Admin: 11/08/24 22:58 Dose: 1 puff Documented By: NICOLAS Amiodarone HCl (Amiodarone Hcl 200 Mg Tablet) 200 mg PO DAILY [facility] Last Admin: 11/23/24 08:42 Dose: 200 mg Documented By: GOKUL Apixaban (Apixaban 5 Mg Tablet) 5 mg PO BID [facility] Last Admin: 11/23/24 20:22 Dose: 5 mg Documented By: JYOTI Atorvastatin Calcium (Atorvastatin Calcium 40 Mg Tablet) 40 mg PO BEDTIME [facility] Last Admin: 11/23/24 20:22 Dose: 40 mg Documented By: JYOTI Buprenorphine/Naloxone (Buprenorphine/Naloxone 8/2 Mg Film) 1 film SUBLINGUAL TID [facility] Last Admin: 11/23/24 20:25 Dose: 1 film Documented By: JYOTI Calcitriol (Calcitriol 0.25 Mcg Capsule) 0.5 mcg PO DAILY [facility] Last Admin: 11/23/24 08:42 Dose: 0.5 mcg Documented By: GOKUL Calcium Acetate (Calcium Acetate 667 Mg Capsule) 1,334 mg PO TIDWM [facility] Last Admin: 11/23/24 17:15 Dose: 1,334 mg Documented By: GOKUL Calcium Carbonate (Calcium Carbonate 750 Mg Tab.Chew) 750 mg PO Q4H PRN PRN Reason: Heartburn Collagenase (Collagenase Clostridium Hist. 30 Gm Tube) 1 appl TOPICAL BID [facility]; Protocol Last Admin: 11/24/24 01:40 Dose: Not Given Documented By: JYOTI Non-Admin Reason: assessed, no action needed Glucose (Glucose Gel 15 Gm Gel..Gram.) 15 gm PO Q15M PRN; Protocol PRN Reason: per Hypoglycemia Standing Ord. Dextrose (D10) 250 mls @ 750 mls/hr IV Q15M PRN; Protocol PRN Reason: per Hypoglycemia Standing Ord. Vancomycin HCl 500 mg/ Sodium (Chloride) 110 mls @ 110 mls/hr IV MoWeFr@1800 [facility] Insulin Glargine (Insulin Glargine,Hum.Rec.Anlog 100 Unit/Ml 10 Ml Vial) 12 unit SUBCUT DAILY [facility] Last Admin: 11/23/24 08:39 Dose: 12 unit Documented By: GOKUL Insulin Human Lispro (Insulin Lispro 100 Unit/Ml 3 Ml Vial) 0 unit SUBCUT QIDACHS [facility]; Protocol Last Admin: 11/23/24 21:21 Dose: 8 unit Documented By: JYOTI Levofloxacin (Levofloxacin 500 Mg Tablet) 500 mg PO Q48H [facility] Stop: 11/24/24 09:59 Last Admin: 11/23/24 08:42 Dose: 500 mg Documented By: GOKUL Loperamide HCl (Loperamide Hcl 2 Mg Capsule) 4 mg PO Q4H PRN PRN Reason: Diarrhea Last Admin: 11/20/24 17:44 Dose: 4 mg Documented By: BIN Magnesium Hydroxide (Milk Of Magnesia 30 Ml Oral.Susp) 30 ml PO DAILY PRN PRN Reason: Constipation Melatonin (Melatonin 3 Mg Tablet) 6 mg PO BEDTIME PRN PRN Reason: Insomnia Metoprolol Succinate (Metoprolol Succinate Er 50 Mg Tab.Er.24h) 50 mg PO DAILY [facility]; Protocol Last Admin: 11/23/24 16:42 Dose: Not Given Documented By: GOKUL Non-Admin Reason: Physician Held Med Midodrine (Midodrine Hcl 5 Mg Tablet) 5 mg PO BIDWM [facility] Last Admin: 11/23/24 17:15 Dose: 5 mg Documented By: GOKUL Morphine Sulfate (Morphine Sulfate 2 Mg/Ml Cartridge) 5 mg IVPUSH Q4H PRN; Protocol PRN Reason: Pain, Severe (Pain Scale 7-10) Last Admin: 11/24/24 03:23 Dose: 5 mg Documented By: JYOTI Multivitamins/Vitamin C (Multivitamin Tablet) 1 tab PO DAILY [facility] Last Admin: 11/23/24 08:41 Dose: 1 tab Documented By: GOKUL Omeprazole (Omeprazole 20 Mg Capsule.Dr) 20 mg PO DAILY@0630 [facility] Last Admin: 11/24/24 06:02 Dose: 20 mg Documented By: JYOTI Ondansetron HCl (Ondansetron Hcl 4 Mg/2 Ml Vial) 4 mg IVPUSH Q8H PRN PRN Reason: Nausea and Vomiting Oxycodone HCl (Oxycodone Hcl Immed Release 5 Mg Tablet) 10 mg PO Q4H PRN PRN Reason: Pain, Moderate(Pain Scale 4-6) Last Admin: 11/24/24 06:07 Dose: 10 mg Documented By: JYOTI Polyethylene Glycol (Polyethylene Glycol 3350 17 Gm Powd.Pack) 17 gm PO DAILY PRN PRN Reason: Constipation Sodium Chloride (0.9 % Sodium Chloride Flush 3 Ml Syringe) 3 ml IVFLUSH QSHIFT [facility] Last Admin: 11/23/24 20:26 Dose: 3 ml Documented By: JYOTI Torsemide (Torsemide 20 Mg Tablet) 80 mg PO BIDWM [facility]; Protocol Last Admin: 11/23/24 17:25 Dose: Not Given Documented By: GOKUL Non-Admin Reason: Decreased Blood Pressure Labs 11/22/24 14:07 11/22/24 14:07 Labs: Laboratory Results - last 24 hr 11/23/24 11/23/24 11/23/24 11:25 17:11 20:36 POC Glucose 106 116 H 267 H 11/24/24 07:20 POC Glucose 222 H Procedures Date of Service Date of Service: 11/24/24 Progress Note: A&P Assessment and plan (1) Necrotic eschar: Status: Acute Plan Pod 1 following debridement of multiple skin wounds of the right thigh, right groin and left foot. Patient is hemodynamically stable awaiting hemodialysis. Orders for wound care placed. We will continue to monitor. May possibly need additional surgery for back wounds. Time Spent With Patient Time: Total time managing care of this patient today ____ minutes. Quality Stroke Does the patient have a stroke diagnosis?: No VTE Prior VTE?: No VTE Risk Level:: Medical - moderate - high VTE Device Contraindication: Treatment Not Indicated VTE Drug Contraindication: N/A - Med Ordered
--- NOTE | 2024-11-24 09:01 | HO.POSTANES ---
Post Anesthesia Evaluation Post Anesthesia Evaluation Date of Service: 11/24/24 Vital Signs: Vital Signs Temp Pulse Resp BP Pulse Ox O2 Del Method O2 Flow Rate 11/24/24 07:17 98.5 F 86 14 105/58 L 97 Room Air 11/24/24 03:34 97.7 F 96 18 99/55 L 99 Nasal Cannula 2 Anesthesia: General Mental Status: Awake Pain Control: Satisfactory Nausea/Vomiting: None Hydration: Adequate Anesthesia-Related Issues: No Anes. Related Issues
[2024-11-24] MEDS: Multivitamin TABLET 1 TAB PO (09:04)
[2024-11-24] MEDS: calcitrioL 0.25 MCG CAPSULE 0.5 MCG PO (09:04)
[2024-11-24] MEDS: Midodrine HCl 5 MG TABLET PO ×2 (09:04→17:17)
[2024-11-24] MEDS: Apixaban 5 MG TABLET PO ×2 (09:04→21:03)
[2024-11-24] MEDS: Amiodarone HCL 200 MG TABLET PO (09:04)
[2024-11-24] MEDS: Calcium Acetate 667 MG CAPSULE 1334 MG PO ×3 (09:04→17:17)
[2024-11-24] MEDS: Torsemide 20 MG TABLET 80 MG PO ×2 (09:05→17:16)
[2024-11-24] MEDS: Buprenorphine/Naloxone 8/2 mg FILM 1 FILM SUBLINGUAL ×3 (09:06→21:03)
[2024-11-24] MEDS: Insulin Glargine,Hum.rec.anlog 100 UNIT/ML 10 ML VIAL 12 UNIT SUBCUT (09:09)
[2024-11-24] MEDS: Insulin Lispro 100 UNIT/ML 3 ML VIAL SUBCUT ×4 (09:09→21:02)
[2024-11-24] MEDS: 0.9 % Sodium Chloride Flush 3 ML SYRINGE IVFLUSH ×3 (09:20→21:03)
[2024-11-24 11:55] LABS: Glucose, Whole Blood 153 mg/dL (60-115)
--- NOTE | 2024-11-24 12:55 | MHC.CM.PN ---
Per MD not medically cleared for dc. CM discussed dc plan w/ patient who continues to decline STR unless a local bed is secured. CM sent updates to local facilities. No bed offers at this time. Patient prefers to go home w/ [facility] and support from his mother. CM attempted to call mother to discuss, no answer. Will continue to follow.
[2024-11-24 14:41] VITALS: O2SAT 97
[2024-11-24 14:49] LABS: Vancomycin Random 11.5 mcg/mL (15-20)
--- NOTE | 2024-11-24 15:05 | MHC.CLN ---
F/U PT WITH INCREASED NUTRITION NEEDS R/T PRESSURE INJURIES. PO INTAKE VARIABLE, WITH MOST MEALS 100%. [id number] PT RECEIVING ENSURE MAX BID TO PROMOTE WOUND HEALING SUPP PROVIDES 300KCALS, 60G PROTEIN CONTINUE TO MONITOR PO INTAKE AND ENCOURAGE SUPPLEMENTS
--- NOTE | 2024-11-24 15:25 | W.PM.DNNEP ---
Subjective Subjective Date of Service: 11/24/24 This patient was seen during dialysis. Interval history: Wound debridement Physical Exam Vital Signs: Vital Signs: Last Vital Signs Temp 98.5 F 11/24/24 07:17 Pulse 86 11/24/24 07:17 Resp 14 11/24/24 07:17 BP 105/58 L 11/24/24 07:17 Pulse Ox 97 11/24/24 14:41 O2 Del Method Room Air 11/24/24 14:41 O2 Flow Rate 2 11/24/24 03:34 Oxygen Flow Rate 4 11/05/24 04:40 BMI result Body Mass Index 27.1 Const: General: comfortable and no acute distress Orientation/consciousness: patient oriented x3 HEENT: Head: Yes normocephalic Mouth: Normal oral and palatal mucosa present Eyes: EOM: EOMs intact bilaterally Neck: Neck: Yes supple Resp: Auscultation: clear to auscultation bilaterally and diminished lung sounds Cardio: Jugular venous distension: no JVD Rate: regular rate GI: Palpation (GI): Soft to palpation Auscultation: normal bowel sounds Neuro: General: patient oriented x3 Extrem: Other: BKA Assessment & Plan Assessment and plan (1) ESRD (end stage renal disease) on dialysis: Status: Acute Plan Usually gets HD on MWF ( [facility]) Seen on HD; Continued vol optimization on HD Antibiotics as guided by ID Procrit as needed Renal Diet; Phos binder with meals; Shall F/U Time Spent With Patient Time: Total time managing care of this patient today ____ minutes. Procedures Date of Service Date of Service: 11/24/24
[2024-11-24] MEDS: vancomycin HCL 1,000 MG in 0.9 % Sodium Chloride 250 ML 270 MG IV (15:42)
[2024-11-24] MEDS: Collagenase Clostridium Hist. 30 GM TUBE 1 APPL TOPICAL (15:44)
[2024-11-24 16:14] VITALS: BP 118/66; PULSE 100; RESP 18; TEMP 36.8; O2SAT 100
--- NOTE | 2024-11-24 16:18 | HO.WOUND ---
Wound Consult: Follow up Today wounds were assessed and re-dressed with current topical recommendations in place. Of note he had surgical debridement yesterday with Dr. Araya for the left heel Right thigh and right groin - see his note for details. The wounds remain in various stages. The patient is pending dicharge - it is recommended he go to a penitentiary facility but the patient refuses. He will have VNA services at home but many of the dressings will need to be changed daily and there is concern for his mother being able to perform these. Of importance the patient was premedicated with IV and oral pain meds and still screamed out in pain and discomfort throughout the entire time with him. The patient tolerated the dressing changes considerably better last week. TT to Dr. Araya, case mgt, direct care nurse and Dr. Covington with concerns for patient discharging home. I had sandra conversation with the patient and his mother and concerns for home and returning with infected wounds if dressing care is not provided. At this time all topical interventions remain the same no changes at this time. See photos below for details. Of note the patient is non compliant with his diet - his mother was seen bringing in large soda drinks. The patient was found with bag of open candy in his bed - when questioned he reported they were not his. We had conversation of the direct effects of poor blood sugar control / high sugars and wound healing. He nodded his yes but did not respond in other ways. Mother was asked to not bring in candy for the patient. Coccyx and Buttock 11/24/24 Coccyx palpable to bone not frankly exposed but down to bone - thick moist fibrinous slough adherent to wound bed - buttock wound red clean viable granulation tissue ntoed with small thin veil of slough noted. Moist macerated tissue noted. Santyl to coccyx and Triad to buttock and periwound. Coccyx Etiology: ?Unstagable Pressure injury -?Present on Admission Wound Bed: Full thickness tissue loss with adherent yellow white slough Drainage / Odor: yellow flowers - mild odor noted Edges: ? irregular Corazon wound: MASD and friction Pain: pain reported Goals of Treatment: ?Triad at this time - will talk with provider regarding Santyl for enzymatic debridement Buttock - Stage 3 Pressure injury previously documented as unstageable - currently full thickness tissue loss - granulation buds noted - clean viable wound bed. Right Back Side 11/24/24 - Wounds beds remain with adherent necrotic black brown yellow slough - appear to be decreasing in size. Continue with Santyl. Right Hip - Unstageable Pressure injury - Adherent necrotic leatherlife tissue no induration slight fluctance noted. Santyl for enzymatic debridement. Periwound noted for irregular purpura not consistent with DTI. Midline Back 11/24/24 - Etiology unknown - Presentation not consistent with Deep Tissue Injury - Currently with adherent necrotic tissue - recommend santly application and off loading pressure. Back Side Left Heel - adherent dry black brown necrotic tissue no fluctuance noted - Durafiber AG applied to wound bed. Left Heel Etiology: ?Unstagable Pressure injury -?Present on Admission Wound Bed: Full thickness tissue loss adherent necrotic tissue black brown and flowers Drainage / Odor: sanginous drainage post debridement Edges: ? irregular Corazon wound: maroon nonblanchable tissue Pain: pain reported Goals of Treatment: Durafiber for autolytic debridement Left Heel Left Groin 11/24/24 Right Groin 11/24/24 Bilateral Groin Etiology: ?MASD (Moisture Associated Skin Damage) Left Groin 3cm x 3cm x 0.4cm Right Groin 10.5cm x 6.5cm x 0.3cm Wound Bed: Full thickness tissue injury - scattered adherent yellow slough red pink erythema and with moist desquamation noted Drainage / Odor: mild Odor noted flowers yellow drainage noted Edges: ? irregular Corazon wound: ?red erythema and firm induration noted - MASD no fluctuance noted Goals of Treatment: ? Santly for enzymatic debridement switched from Durafiber AG Bilateral Groin Right Lateral Thigh 11/24/24 - adherent yellow fibrinous slough - no odor some flowers drainage noted - recommend santyl for enzymatic debridement Right Anterior Thigh - Etiology unknown - Location not consistent with Pressure - no induration no fluctance noted. Santyl for enzymatic debridement. Right Thigh Agility Pulsate bed in use. Recommendations: 1. Turn and Reposition every 2 hours and as needed for patient comfort.? Use pillows or wedges to support off loading positions. 2. Off Load all bony prominences with use of pillows and heel boots if needed.? Apply Preventative foams where needed. ? 3. Monitor for incontinence and moisture control, use barrier creams when needed for prevention and treatment. Recommend Condom cath for urinary containment as patient is incontinent of urine at times. 4. Provide adequate and supplemental nutrition.? 5. Continue Pulsate from Agility bed. 6. Maintain blood glucose levels per Providers order. 7. Scrotum and Sacrum and Buttock- Off Load Pressure with Q2hr turns and use of pillows. Cleanse with PH balance spray or wipes, pat dry. ?Apply thin layer of Triad to wound bed - only pat and dab no scrub and rub when soiling occurs. Reapply thin layer PRN after each episode of incontinence. Do not use foam dressing at this time. 8. Coccyx- Lightly pack with Santly impregnated gauze, triad to periwound, cover with ABD pad. Change daily. 9. Left Heel, Midback and Right Hip - Cleanse with NS moist gauze, pat dry. Apply Triad to periwound, apply thick layer of Santyl to entire wound bed, cover with gauze, ABD dressing, change Daily. 10. Bilateral Groin - Cleanse with Ns moist gauze, pat dry. Triad to periwound, apply durafiber Ag to wound bed, cover with dry ABD pad. Change daily and PRN for soiling. Recommend follow up out patient Wound Clinic at [address] [place] [id number] and to call for an appointment at time of discharge. [phone].? Re-consult wound care Nurse for wound deterioration or wound changes.
--- NOTE | 2024-11-24 16:19 | HO.PM.IMPN ---
Subjective Subjective Date of Service: 11/24/24 Interval History: No new issue, still c/o pain Review of Systems s/p debridement yesterday pain is reasonably well controlled. Physical Exam Vital Signs: Vital Signs: Last Vital Signs Temp 98.3 F 11/24/24 16:14 Pulse 100 11/24/24 16:14 Resp 18 11/24/24 16:14 BP 118/66 11/24/24 16:14 Pulse Ox 100 11/24/24 16:14 O2 Del Method Room Air 11/24/24 16:14 O2 Flow Rate 2 11/24/24 03:34 Oxygen Flow Rate 4 11/05/24 04:40 BMI result Body Mass Index 27.1 General: AO X 3, no acute distress Resp: CTA bilateral CVS: S1,S2,RRR GI: +BS, NT, no distention Skin:please see wound care note for detialls. Objective Data Active Medications Acetaminophen (Acetaminophen 325 Mg Tablet) 650 mg PO Q6H PRN PRN Reason: Pain, Mild 1-3,fever,headache Last Admin: 11/14/24 16:13 Dose: 650 mg Documented By: KIM Al Hydroxide/Mg Hydroxide (Magnesium Hydrox/Alum Hydrox 30 Ml Oral.Susp) 30 ml PO Q4H PRN PRN Reason: Heartburn Albuterol Sulfate (Albuterol Sulfate 90 Mcg 8 Gm Inhaler) 1 puff INHALE RQ6H PRN PRN Reason: Shortness of Breath/Wheezing Last Admin: 11/08/24 22:58 Dose: 1 puff Documented By: NICOLAS Amiodarone HCl (Amiodarone Hcl 200 Mg Tablet) 200 mg PO DAILY [facility] Last Admin: 11/24/24 09:04 Dose: 200 mg Documented By: THOMAS Apixaban (Apixaban 5 Mg Tablet) 5 mg PO BID [facility] Last Admin: 11/24/24 09:04 Dose: 5 mg Documented By: THOMAS Atorvastatin Calcium (Atorvastatin Calcium 40 Mg Tablet) 40 mg PO BEDTIME [facility] Last Admin: 11/23/24 20:22 Dose: 40 mg Documented By: JYOTI Buprenorphine/Naloxone (Buprenorphine/Naloxone 8/2 Mg Film) 1 film SUBLINGUAL TID [facility] Last Admin: 11/24/24 14:43 Dose: 1 film Documented By: AKI Calcitriol (Calcitriol 0.25 Mcg Capsule) 0.5 mcg PO DAILY [facility] Last Admin: 11/24/24 09:04 Dose: 0.5 mcg Documented By: THOMAS Calcium Acetate (Calcium Acetate 667 Mg Capsule) 1,334 mg PO TIDWM [facility] Last Admin: 11/24/24 14:10 Dose: 1,334 mg Documented By: THOMAS Calcium Carbonate (Calcium Carbonate 750 Mg Tab.Chew) 750 mg PO Q4H PRN PRN Reason: Heartburn Collagenase (Collagenase Clostridium Hist. 30 Gm Tube) 1 appl TOPICAL BID [facility]; Protocol Last Admin: 11/24/24 15:44 Dose: 1 appl Documented By: THOMAS Glucose (Glucose Gel 15 Gm Gel..Gram.) 15 gm PO Q15M PRN; Protocol PRN Reason: per Hypoglycemia Standing Ord. Dextrose (D10) 250 mls @ 750 mls/hr IV Q15M PRN; Protocol PRN Reason: per Hypoglycemia Standing Ord. Vancomycin HCl 500 mg/ Sodium (Chloride) 110 mls @ 110 mls/hr IV MoWeFr@1800 [facility] Insulin Glargine (Insulin Glargine,Hum.Rec.Anlog 100 Unit/Ml 10 Ml Vial) 12 unit SUBCUT DAILY [facility] Last Admin: 11/24/24 09:09 Dose: 12 unit Documented By: THOMAS Insulin Human Lispro (Insulin Lispro 100 Unit/Ml 3 Ml Vial) 0 unit SUBCUT QIDACHS [facility]; Protocol Last Admin: 11/24/24 14:22 Dose: 2 unit Documented By: THOMAS Loperamide HCl (Loperamide Hcl 2 Mg Capsule) 4 mg PO Q4H PRN PRN Reason: Diarrhea Last Admin: 11/20/24 17:44 Dose: 4 mg Documented By: BIN Magnesium Hydroxide (Milk Of Magnesia 30 Ml Oral.Susp) 30 ml PO DAILY PRN PRN Reason: Constipation Melatonin (Melatonin 3 Mg Tablet) 6 mg PO BEDTIME PRN PRN Reason: Insomnia Metoprolol Succinate (Metoprolol Succinate Er 50 Mg Tab.Er.24h) 50 mg PO DAILY [facility]; Protocol Last Admin: 11/24/24 14:29 Dose: Not Given Documented By: THOMAS Non-Admin Reason: held for dialysis Midodrine (Midodrine Hcl 5 Mg Tablet) 5 mg PO BIDWM [facility] Last Admin: 11/24/24 09:04 Dose: 5 mg Documented By: THOMAS Morphine Sulfate (Morphine Sulfate 2 Mg/Ml Cartridge) 5 mg IVPUSH Q4H PRN; Protocol PRN Reason: Pain, Severe (Pain Scale 7-10) Last Admin: 11/24/24 14:09 Dose: 5 mg Documented By: THOMAS Multivitamins/Vitamin C (Multivitamin Tablet) 1 tab PO DAILY [facility] Last Admin: 11/24/24 09:04 Dose: 1 tab Documented By: THOMAS Omeprazole (Omeprazole 20 Mg Capsule.) 20 mg PO DAILY@0630 [facility] Last Admin: 11/24/24 06:02 Dose: 20 mg Documented By: JYOTI Ondansetron HCl (Ondansetron Hcl 4 Mg/2 Ml Vial) 4 mg IVPUSH Q8H PRN PRN Reason: Nausea and Vomiting Oxycodone HCl (Oxycodone Hcl Immed Release 5 Mg Tablet) 10 mg PO Q4H PRN PRN Reason: Pain, Moderate(Pain Scale 4-6) Last Admin: 11/24/24 14:43 Dose: 10 mg Documented By: KAI Polyethylene Glycol (Polyethylene Glycol 3350 17 Gm Powd.Pack) 17 gm PO DAILY PRN PRN Reason: Constipation Sodium Chloride (0.9 % Sodium Chloride Flush 3 Ml Syringe) [facility] Last Admin: 11/24/24 09:20 Dose: 3 ml Documented By: THOMAS Torsemide (Torsemide 20 Mg Tablet) 80 mg PO BIDWM [facility]; Protocol Last Admin: 11/24/24 09:05 Dose: 80 mg Documented By: THOMAS Labs 11/22/24 14:07 11/22/24 14:07 Labs: Laboratory Results - last 24 hr 11/23/24 11/23/24 11/24/24 17:11 20:36 07:20 POC Glucose 116 H 267 H 222 H Random Vancomycin 11/24/24 11/24/24 11:50 14:09 POC Glucose 153 H Random Vancomycin 11.5 L Assessment and Plan (1) Anemia in chronic kidney disease (CKD): Status: Acute Plan 44 y/o man with past medical history significant for ESRD on HD (MWF), diabetes, polysubstance abuse, 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 Essentially no change, awaiting placement and debridment next week Septic shock likely multiple etiology, previous MRSA, abdominal and inner thigh cellulitis--shock resolved. -wound culture growing Klebsiel and Proteus--sensitive to ceftriaxone -Continue Vancomyin per prior MRSA bacteremia-vanco completed . was on Ceftriaxone/flagyl starting 11/08, changed to levoflox 11/09/23 for 14 days( wound culture also show pseudomonas.) Per ID recommendation en date 11/23 ESRD--HD MWF (Nephrology following) Paroxysmal atrial flutter. Continue amiodarone, metoprolol and Eliquis. HypOtension--required vasopressors on presentation, continue Midodrine Elevated troponin, chronic. No chest pain. Likely secondary to end-stage renal disease. Acute on chronic anemia- iron levels low tibc,iron sats ,ferritin, folate and b12 seems fine. denies any gross bleeding or melena as per patient. s/p 4prbc this admission h/h has been stable moniter cbc and transfuse if hgb < 7 History of drug abuse. Continue Suboxone. Addiction med consult. Pressure ulcer, nursing wound protocol -surgery consult noted- difficult constellation of skin wounds in an area not amenable to debridement, best treated with local wound care. wound care: Turn and Reposition every 2 hours and as needed for patient comfort.? Use pillows or wedges to support off loading positions. Off Load all bony prominences with use of pillows and heel boots if needed.? Apply Preventative foams where needed. ? Monitor for incontinence and moisture control, use barrier creams when needed for prevention and treatment. Recommend Condom cath for urinary containment as patient is incontinent of urine at times. Provide adequate and supplemental nutrition.? Continue Pulsate from Agility bed. Maintain blood glucose levels per Providers order. Scrotum and Sacrum and Coccyx Buttock- Off Load Pressure with Q2hr turns and use of pillows. Cleanse with PH balance spray or wipes, pat dry. ?Apply thin layer of Triad to wound bed - only pat and dab no scrub and rub when soiling occurs. Reapply thin layer PRN after each episode of incontinence. Do not use foam dressing at this time. Left Heel, Right Hip, Right Thigh and bilateral groin - Cleanse with Stacie [place] and NS moist gauze, pat dry. Apply Triad to periwound, apply thick layer of Santyl to entire wound bed, cover with gauze, ABD dressing, change Daily. Mid Back - Gently cleanse with NS moist gauuze, pat dry. Apply skin prep allow to dry. Cover wound bed with thin single layer of xeroform and ABD pad. Change daily. -see picture, surgery to do debridment in OR today -morphine for dressing changes, oxycodone PRN for pain Type 2 diabetes mellitus, hypoglycemia this mornng -BG checks before meals at bedtime. -Insulin sliding scale and Lantus. Diabetic diet Hyperlipidemia. Continue atorvastatin. Right BKA. no issues DVT prophylaxis: Oscar hartmann Need for inpt: awaiting placement spoke with mother and given difficulty finding SNF, they are electing to go home with [facility] Quality Stroke Does the patient have a stroke diagnosis?: No VTE Prior VTE?: No VTE Risk Level:: Medical - moderate - high VTE Device Contraindication: Treatment Not Indicated VTE Drug Contraindication: N/A - Med Ordered
[2024-11-24 16:20] LABS: Glucose, Whole Blood 245 mg/dL (60-115)
--- NOTE | 2024-11-24 16:51 | HO.WOUND ---
Wound Consult: Follow up Today wounds were assessed and re-dressed with current topical recommendations in place. Of note he had surgical debridement yesterday with Dr. Araya for the left heel Right thigh and right groin - see his note for details. The wounds remain in various stages. The patient is pending discharge - it is recommended he go to a longterm facility but the patient refuses. He will have VNA services at home but many of the dressings will need to be changed daily and there is concern for his mother being able to perform these. Of importance the patient was premedicated with IV and oral pain meds and still screamed out in pain and discomfort throughout the entire time with him. The patient tolerated the dressing changes considerably better last week. TT to Dr. Araya, case mgt, direct care nurse and Dr. Covington with concerns for patient discharging home. I had sandra conversation with the patient and his mother and concerns for home and returning with infected wounds if dressing care is not provided. Some changes to topical care recommendations made below will update orders for direct care team as well. See photos below for details. Of note the patient is non compliant with his diet - his mother was seen bringing in large soda drinks. The patient was found with bag of open candy in his bed - when questioned he reported they were not his. We had conversation of the direct effects of poor blood sugar control / high sugars and wound healing. He nodded yes but did not respond in other ways. Mother was asked to not bring in candy for the patient. Coccyx and Buttock 11/24/24 Coccyx palpable to bone not frankly exposed but down to bone - thick moist fibrinous slough adherent to wound bed - buttock wound red clean viable granulation tissue ntoed with small thin veil of slough noted. Moist macerated tissue noted. Santyl to coccyx and Triad to buttock and periwound. Coccyx Etiology: ?Unstagable Pressure injury -?Present on Admission Wound Bed: Full thickness tissue loss with adherent yellow white slough Drainage / Odor: yellow flowers - mild odor noted Edges: ? irregular Corazon wound: MASD and friction Pain: pain reported Goals of Treatment: ?Triad at this time - will talk with provider regarding Santyl for enzymatic debridement Buttock - Stage 3 Pressure injury previously documented as unstageable - currently full thickness tissue loss - granulation buds noted - clean viable wound bed. Right Back Side 1/22/25 - Wounds beds remain with adherent necrotic black brown yellow slough - appear to be decreasing in size. Continue with Santyl. Right Hip - Unstageable Pressure injury - Adherent necrotic leatherlike tissue no induration slight fluctance noted. Santyl for enzymatic debridement. Periwound noted for irregular purpura not consistent with DTI. Midline Back 11/24/24 - Etiology unknown - Presentation not consistent with Deep Tissue Injury - Currently with adherent necrotic tissue - recommend santly application and off loading pressure. Back Side Left Heel - adherent dry black brown necrotic tissue no fluctuance noted - Durafiber AG applied to wound bed. Left Heel Etiology: ?Unstagable Pressure injury -?Present on Admission Wound Bed: Full thickness tissue loss adherent necrotic tissue black brown and flowers Drainage / Odor: sanginous drainage post debridement Edges: ? irregular Corazon wound: maroon nonblanchable tissue Pain: pain reported Goals of Treatment: Durafiber for autolytic debridement Left Heel Left Groin 11/24/24 Right Groin 11/24/24 Bilateral Groin Etiology: ?MASD (Moisture Associated Skin Damage) Left Groin 3cm x 3cm x 0.4cm Right Groin 10.5cm x 6.5cm x 0.3cm Wound Bed: Full thickness tissue injury - scattered adherent yellow slough red pink erythema and with moist desquamation noted Drainage / Odor: mild Odor noted flowers yellow drainage noted Edges: ? irregular Corazon wound: ?red erythema and firm induration noted - MASD no fluctuance noted Goals of Treatment: ? Santly for enzymatic debridement switched from Durafiber AG Bilateral Groin Right Lateral Thigh 11/24/24 - adherent yellow fibrinous slough - no odor some flowers drainage noted - recommend santyl for enzymatic debridement Right Anterior Thigh - Etiology unknown - Location not consistent with Pressure - no induration no fluctance noted. Santyl for enzymatic debridement. Right Thigh Agility Pulsate bed in use. Recommendations: 1. Turn and Reposition every 2 hours and as needed for patient comfort.? Use pillows or wedges to support off loading positions. 2. Off Load all bony prominences with use of pillows and heel boots if needed.? Apply Preventative foams where needed. ? 3. Monitor for incontinence and moisture control, use barrier creams when needed for prevention and treatment. Recommend Condom cath for urinary containment as patient is incontinent of urine at times. 4. Provide adequate and supplemental nutrition.? 5. Continue Pulsate from Agility bed. 6. Maintain blood glucose levels per Providers order. 7. Scrotum and Sacrum and Buttock- Off Load Pressure with Q2hr turns and use of pillows. Cleanse with PH balance spray or wipes, pat dry. ?Apply thin layer of Triad to wound bed - only pat and dab no scrub and rub when soiling occurs. Reapply thin layer PRN after each episode of incontinence. Do not use foam dressing at this time. 8. Coccyx- Lightly pack with Santly impregnated gauze, triad to periwound, cover with ABD pad. Change daily. 9. Left Heel, Midback and Right Hip - Cleanse with NS moist gauze, pat dry. Apply Triad to periwound, apply thick layer of Santyl to entire wound bed, cover with gauze, ABD dressing, change Daily. 10. Bilateral Groin - Cleanse with Ns moist gauze, pat dry. Triad to periwound, apply durafiber Ag to wound bed, cover with dry ABD pad. Change daily and PRN for soiling. Recommend follow up out patient Wound Clinic at [address] [place] [phone] and to call for an appointment at time of discharge. [phone].? Re-consult wound care Nurse for wound deterioration or wound changes.
[2024-11-24 20:36] LABS: Glucose, Whole Blood 314 mg/dL (60-115)
[2024-11-24] MEDS: Atorvastatin Calcium 40 MG TABLET PO (21:02)
[2024-11-25] MEDS: oxyCODONE HCl Immed Release 5 MG TABLET 10 MG PO ×2 (01:03→08:45)
[2024-11-25] MEDS: Omeprazole 20 MG CAPSULE.DR PO (05:19)
[2024-11-25 05:20] VITALS: RESP 15
[2024-11-25] MEDS: Morphine Sulfate 2 MG/ML CARTRIDGE 5 MG IVPUSH ×2 (05:20→12:01)
[2024-11-25 07:36] LABS: Glucose, Whole Blood 122 mg/dL (60-115)
[2024-11-25] MEDS: calcitrioL 0.25 MCG CAPSULE 0.5 MCG PO (08:44)
[2024-11-25] MEDS: Torsemide 20 MG TABLET 80 MG PO (08:44)
[2024-11-25] MEDS: Calcium Acetate 667 MG CAPSULE 1334 MG PO ×2 (08:44→12:02)
[2024-11-25] MEDS: Amiodarone HCL 200 MG TABLET PO (08:45)
[2024-11-25] MEDS: Multivitamin TABLET 1 TAB PO (08:45)
[2024-11-25] MEDS: Apixaban 5 MG TABLET PO (08:45)
[2024-11-25] MEDS: Midodrine HCl 5 MG TABLET PO (08:45)
[2024-11-25] MEDS: Metoprolol Succinate ER 50 MG TAB.ER.24H PO (08:45)
[2024-11-25] MEDS: Buprenorphine/Naloxone 8/2 mg FILM 1 FILM SUBLINGUAL ×2 (08:47→14:04)
[2024-11-25] MEDS: Insulin Glargine,Hum.rec.anlog 100 UNIT/ML 10 ML VIAL 12 UNIT SUBCUT (08:56)
[2024-11-25] MEDS: 0.9 % Sodium Chloride Flush 3 ML SYRINGE IVFLUSH (08:57)
[2024-11-25] MEDS: Insulin Lispro 100 UNIT/ML 3 ML VIAL SUBCUT (12:02)
--- NOTE | 2024-11-25 12:03 | MHC.CM.PN ---
Per MD patient is medically cleared for dc. PT rec STR and patient has declined in prior dc planning conversations. CM and MD met with patient at bedside to discuss STR recommendation again. Extensive conversation re: benefits of STR and risks of going home including inadequate wound care and infection. Some dressing changes are ordered as daily and patient/mother are aware VNA is not able to accommodate this. Mother has agreed to perform dressing changes, but also says that patient declines frequently and she is not sure if she is strong enough (chemo patient). Patient is aware and will consider asking his to assist as well. After conversation patient continues to decline STR and prefers to return home w/ mother and [facility]. A+Ox4. CM attempted to call mother x3 to discuss, LM with no response. Patient aware and still requesting to dc home. BLS transport scheduled for 2pm. Patient, RN and MD aware. CM also informed Jasmine GUPTA of dc and patient will resume outpatient HD tomorrow. Referral faxed to wound clinic and LM to schedule appt. Patient aware he needs to call to schedule appt.
[2024-11-25 12:15] LABS: Glucose, Whole Blood 153 mg/dL (60-115)
--- NOTE | 2024-11-25 13:32 | P.DS_ITS ---
DS: Providers Provider Date of Service: 11/25/24 Date of admission: 11/05/24 14:44 Date of discharge: 11/25/24 Primary care physician: Cristina Stover MD Consults: 11/05/24 14:10 Consult to Nephrology Routine Consulting Provider: [facility] Reason for consultation: ESRD, missed dialysis 11/06/24 06:56 Consult to General Surgery Routine Consulting Provider: [facility] Reason for consultation: Inner thigh wound, need debridement 11/06/24 11:51 Consult to Wound Care Routine Reason for consultation: wound to buttock and right inner thigh 11/08/24 11:26 Consult to Infectious Diseases Routine Consulting Provider: [facility] Reason for consultation: polymicrobial wound infection Has provider been notified: No 11/08/24 11:29 Addiction Medicine Routine Consulting Provider: Addiction Covering Reason for consultation: Substance use disorder 11/18/24 15:01 Consult to General Surgery Routine Consulting Provider: [facility] Reason for consultation: leg wound, needs debridment Attending physician on discharge: Jonathan Covington Discharging clinician: Jonathan Covington DS: Diagnosis Discharge Diagnosis (1) Anemia in chronic kidney disease (CKD): Status: Acute DS: Summary Hospital Course Hospital Course: HPI:44 years old man with past medical history significant for ESRD on HD (MWF), essential hypertension, hyperlipidemia, PVD, s/p right BKA, type 2 diabetes mellitus and drug abuse on Suboxone. He was recently hospitalized from October 04 to with MRSA bacteremia/Sepsis and pulmonic valve vegetation. He was discharged to complete a 6 weeks of post dialysis vancomycin ending November 17. According to his mother at the bedside, while being ready to be transported to dialysis, he was very lethargic and not responding properly and was hypoxic found to be hypoxic with O2 sat of 70% on room air, and reportedly oxygen tubing not attached, he is supposed to be on 2 liters by nasal canula. In the ED, his blood pressure dropped to 79/41 and given albumin and NS saline 500, midodrine and given peristent low BP was initiated on Levophed. He is alsso administered Ceftriaxone, Zosyn and Vancomycin. He has since been taken off levophed for at least 2 hours and maintaining adequate blood pressure. He has a wound in his inner tigh that appear infected and back ulcer that appear worse--see picture below. He is due fo dialysis today (Dialysis provider notified). Hospital course: 44 y/o man with past medical history significant for ESRD on HD (MWF), diabetes, polysubstance abuse, actively being treated for MRSA and endocarditis here with septic shock possible from unresolved MRSA bacteremia, new infection possible skin as source- patient has completed vancomycin for previous mrsa bacteremia: Patient was on IV vanco for his prior MRSA bacteremia which she completed, in addition patient was started on ceftriaxone and Flagyl initially which was changed to levofloxacin after his wound culture came back Klebsiella and Proteus, Pseudomonas: All sensitive to ciprofloxacin. Patient was seen by ID and recommended to start on levofloxacin-complete levofloxacin 500 mg acute 48 hour for 10 days. In addition discussed with the patient in detail by multiple staff members including hospitalist service as well as Wound Care, surgery: Considering his wound care situation and multiple wounds-offered to go to rehab for wound care and medical management-patient understand that is wound can get worse by staying home and also can get infected further and get worse with sepsis and even septic shock again-but he is still refused to go to the rehab and wants to go home with services. Wound care instructions are given as above. He was also instructed to come back if wound started to get worse again. Acute on chronic anemia-iron levels low,tibc,iron sats ,ferritin, folate and b12 seems fine. denies any gross bleeding or melena as per patient. s/p 4prbc this admission discussed with nephroplohy:h/h has been stable aroun 9-10 range , moniter cbc outpatient. multiple wound area: Topical Wound Care Recommendations: Turn and Reposition every 2 hours and as needed for patient comfort.? Use pillows to support off loading positions. Off Load all bony prominences with use of pillows.? Apply Preventative foams if available where needed. ? Monitor for incontinence and moisture control, use barrier creams when needed for prevention and treatment. Recommend frequent checks as patient is incontinent of urine at times and not always aware. Ensure adequate and supplemental nutrition.? Scrotum and Sacrum and Buttock- Off Load Pressure with Q2hr turns and use of pillows. Cleanse with PH balance spray or wipes, pat dry. ?Apply thin layer of Triad to wound bed - only pat and dab no scrub and rub when soiling occurs. Reapply thin layer PRN after each episode of incontinence. Do not use foam dressing at this time. Coccyx- Lightly pack with Santly impregnated gauze, triad to periwound, cover with ABD pad. Change daily. Left Heel, Midback and Right Hip - Cleanse with NS moist gauze, pat dry. Apply Triad to periwound, apply thick layer of Santyl to entire wound bed, cover with gauze, ABD dressing, change Daily. Bilateral Groin - Cleanse with Ns moist gauze, pat dry. Triad to periwound, apply durafiber Ag to wound bed, cover with dry ABD pad. Change daily and PRN for soiling. Recommend follow up out patient Wound Clinic at [address] [place] [id number] and to call for an appointment at time of discharge. [phone].? plan: moniter cbc in 1week complete levofloxacin 500mg q48hr (end date 12/06/24) moniter wounds if worsening or fever or new complaints -please go to nearest ED. follow up with pcp,wound care, surgery outaptient. Please assessment and plan coordination time spent 40 minute. Discussed with him multiple times about his care with staff present as above. Time Attestation Total time managing care of this patient today: 40 mintues. Discharge Coordination Time (in mins): 40 min Quality: Safe Use of Opioids Does Pt have an Active Cancer Diagnosis on the Problem List?: No Quality: Stroke Does the patient have a stroke diagnosis?: No Physical Exam Vital Signs: Vital Signs: Last Vital Signs Temp 98.3 F 11/24/24 16:14 Pulse 100 11/24/24 16:14 Resp 15 11/25/24 05:20 BP 118/66 11/24/24 16:14 Pulse Ox 100 11/24/24 16:14 O2 Del Method Room Air 11/24/24 16:14 O2 Flow Rate 2 11/24/24 03:34 Oxygen Flow Rate 4 11/05/24 04:40 BMI result Body Mass Index 27.1 General: AO X 3, no acute distress Resp: CTA bilateral CVS: S1,S2,RRR GI: +BS, NT, no distention Skin:please see wound care note for detials( sacrum/buttock ,coccyx,left heel/midback/right hip, bilateral groin). DS: Data Data Completed and Pending Completed studies during hospitalization [Text1]: Procedures Detachment at Right 2nd Toe, Complete, Open Approach (04/18/23) Drainage of Left Pleural Cavity with Drainage Device, Percutaneous Approach (10/04/24) Drainage of Left Pleural Cavity, Percutaneous Approach (09/21/24) Excision of Left Foot Skin, External Approach (08/29/24) Excision of Right Foot Subcutaneous Tissue and Fascia, Open Approach (04/18/23) Fluoroscopy of Superior Vena Cava using Low Osmolar Contrast, Guidance (04/18/23) Insertion of Endotracheal Airway into Trachea, Via Natural or Artificial Opening (09/21/24) Insertion of Infusion Device into Right Atrium, Percutaneous Approach (10/04/24) Insertion of Infusion Device into Superior Vena Cava, Percutaneous Approach (10/04/24) Insertion of Tunneled Vascular Access Device into Chest Subcutaneous Tissue and Fascia, Percutaneous Approach (10/04/24) Introduction of Vasopressor into Peripheral Vein, Percutaneous Approach (09/21/24) Performance of Urinary Filtration, Intermittent, Less than 6 Hours Per Day (10/04/24) Transfusion of Nonautologous Red Blood Cells into Peripheral Vein, Percutaneous Approach (08/29/24) Ultrasonography of Superior Vena Cava, Guidance (10/04/24) Labs on day of discharge: Laboratory Results - last 24 hr 11/24/24 11/24/24 11/24/24 14:09 16:10 20:29 POC Glucose 245 H 314 H Random Vancomycin 11.5 L 11/25/24 11/25/24 07:27 11:51 POC Glucose 122 H 153 H Random Vancomycin Imaging Chest x-ray: Radiologist's impression: ITS Impressions Pelvis CT 11/05/24 11:21 IMPRESSION: Cellulitis lower anterior abdominal wall extending to bilateral proximal lateral thighs. There is an small laceration along the right proximal lateral thigh but no underlying abscess or radiopaque foreign body seen. Electronically signed by: Tobias Barnett MD 11/05/2024 12:59 PM [facility] [place] Discharge Anticipated Discharge Date/Time: 11/25/24 12:16 Patient Disposition: Home Health Service Discharge Diagnosis: Septic shock likely multiple etiology, previous MRSA, abdominal and inner thigh cellulitis Referrals: [facility] [Other] - 1 Week (Call wound clinic to schedule appointment as soon as possible) [facility] [Outside] - 1 Day (WOUND CARE AND HOME PT) Brennan Yañez MD [Physician] - 1 Week Cristina Stover MD [Primary Care Provider] - 1 Week Rocky Araya MD [Physician] - 1 Week Discharge Medications: New polyethylene glycol 3350 17 gram Powder In Packet 17 g PO DAILY PRN (Reason: Constipation) Qty: 120 0RF Santyl 250 unit/gram Ointment 1 appl topical BID Qty: 1 0RF Protocol: Apply to: Apply to: Affected area oxycodone 5 mg Tablet 10 mg PO Q12H PRN (Reason: Pain, Moderate(Pain Scale 4-6)) Qty: 20 0RF Rx Instructions: Partial Fill upon patient request. levofloxacin 500 mg Tablet 500 mg PO Q48H Qty: 5 0RF Rx Instructions: end date will be 12/06/24 Continued metoprolol succinate 50 mg tablet extended release 24 hr 50 mg PO DAILY Qty: 90 0RF midodrine 5 mg Tablet 5 mg PO BID Qty: 60 0RF torsemide 20 mg Tablet 80 mg PO BID Qty: 180 0RF Protocol: Hold for SBP< HOLD for SBP < : 100 multivitamin Tablet 1 tab PO DAILY Qty: 30 0RF atorvastatin 40 mg tablet 40 mg PO BEDTIME Qty: 30 0RF amiodarone 200 mg tablet 200 mg PO DAILY Qty: 90 0RF omeprazole 20 mg capsule,delayed release(DR/EC) 20 mg PO DAILY@0630 Qty: 30 0RF calcitriol 0.25 mcg Capsule 0.5 mcg PO DAILY Qty: 60 0RF calcium acetate(phosphat bind) 667 mg Capsule 1,334 mg PO TIDWM Qty: 120 0RF (DME) pen needle, diabetic 32 gauge x 1/4 needle Qty: 100 0RF Rx Instructions: Use four times a day or as directed. Eliquis 5 mg Tablet 5 mg PO BID Qty: 180 0RF (DME) Dakins solution 1/4 strength 500ml See Rx Instructions .Route .MEDSUPPLY Qty: 1 0RF Rx Instructions: As directed insulin lispro [Humalog KwikPen Insulin] 100 unit/mL insulin pen See Protocol subcut TIDAC Protocol: Insulin Correction Scale Less than or equal to 110 ---- Give (units): 0 111 to 150 Give (units): 0 151 to 200 Give (units): 3 201 to 250 Give (units): 5 251 to 300 Give (units): 8 301 to 350 Give (units): 10 Greater than 350 Give (units): 15 Call MD if Blood Glucose > : 350 melatonin 5 mg tablet 5 mg PO BEDTIME PRN (Reason: insomnia) (DME) FreeStyle Lite Strips Strip Qty: 100 0RF Rx Instructions: Test four times a day or as directed. (DME) blood-glucose meter Kit Qty: 1 0RF Rx Instructions: As Directed (DME) lancets [FreeStyle Lancets] 28 gauge misc Qty: 100 0RF Rx Instructions: Test four times a day or as directed. insulin glargine 100 unit/mL (3 mL) insulin pen 10 unit subcut DAILY Qty: 15 0RF buprenorphine-naloxone 8-2 mg film 1 film sublingual TID Qty: 42 1RF Discharge Orders: Discharge Order (Routine); Ordered 11/25/24 Ordered By: Jonathan Covington Diet: Advance to usual diet Activity on Discharge: As tolerated Stand Alone Forms: Patient Portal Discharge page Print Language: Yakut Other Ambulatory Orders: Complete Blood Count no Diff (Routine) Timeframe: 1 Week Facility: [facility] - Location: Laboratory Ordered By: Jonathan Covington Activity Restrictions/Additional Instructions: Topiacl Wound Care Recommendations: Turn and Reposition every 2 hours and as needed for patient comfort.? Use pillows to support off loading positions. Off Load all bony prominences with use of pillows.? Apply Preventative foams if available where needed. ? Monitor for incontinence and moisture control, use barrier creams when needed for prevention and treatment. Recommend frequent checks as patient is incontinent of urine at times and not always aware. Ensure adequate and supplemental nutrition.? Scrotum and Sacrum and Buttock- Off Load Pressure with Q2hr turns and use of pillows. Cleanse with PH balance spray or wipes, pat dry. ?Apply thin layer of Triad to wound bed - only pat and dab no scrub and rub when soiling occurs. Reapply thin layer PRN after each episode of incontinence. Do not use foam dressing at this time. Coccyx- Lightly pack with Santly impregnated gauze, triad to periwound, cover with ABD pad. Change daily. Left Heel, Midback and Right Hip - Cleanse with NS moist gauze, pat dry. Apply Triad to periwound, apply thick layer of Santyl to entire wound bed, cover with gauze, ABD dressing, change Daily. Bilateral Groin - Cleanse with Ns moist gauze, pat dry. Triad to periwound, apply durafiber Ag to wound bed, cover with dry ABD pad. Change daily and PRN for soiling. Recommend follow up out patient Wound Clinic at [address] [place] [address] and to call for an appointment at time of discharge. [phone].? Care Plan Goals: 44 y/o man with past medical history significant for ESRD on HD (MWF), diabetes, polysubstance abuse, actively being treated for MRSA and endocarditis here with septic shock possible from unresolved MRSA bacteremia, new infection possible skin as source- patient has completed vancomycin for previous mrsa bacteremia: Patient was on IV vanco for his prior MRSA bacteremia which she completed, in addition patient was started on ceftriaxone and Flagyl initially which was changed to levofloxacin after his wound culture came back Klebsiella and Proteus, Pseudomonas: All sensitive to ciprofloxacin. Patient was seen by ID and recommended to start on levofloxacin-complete levofloxacin 500 mg acute 48 hour for 10 days. In addition discussed with the patient in detail by multiple staff members including hospitalist service as well as Wound Care, surgery: Considering his wound care situation and multiple wounds-offered to go to rehab for wound care and medical management-patient understand that is wound can get worse by staying home and also can get infected further and get worse with sepsis and even septic shock again-but he is still refused to go to the rehab and wants to go home with services. Wound care instructions are given as above. He was also instructed to come back if wound started to get worse again. Acute on chronic anemia-iron levels low,tibc,iron sats ,ferritin, folate and b12 seems fine. denies any gross bleeding or melena as per patient. s/p 4prbc this admission discussed with nephroplohy:h/h has been stable aroun 9-10 range , moniter cbc outpatient. Health Concerns: as above. Plan of Treatment: moniter cbc in 1week complete levofloxacin 500mg q48hr (enddate 12/06/24) moniter wounds if worsening or fever or new complaints -please go to nearest ED. follow up with pcp,wound care, surgery outaptient. Assessment: as above. Patient Instructions: Chronic Wounds (DC)
[2024-11-25] MEDS: levoFLOXacin 500 MG TABLET PO (13:35)
[2024-11-25 14:00] VITALS: O2SAT 98
--- NOTE | 2024-11-25 14:23 | W.MHC.F2F ---
Service Date Service Date: 11/25/24 Encounter Date of encounter: 11/25/24 Encounter: multiple wounds, anemia , esrd Reasons for Services Signs and symptoms assessed: new symptoms or worsening wounds or fevers Reason for nursing home: wound care, medication management, medication treatment and teach disease management MD Overseeing Care: Cristina Stover Homebound: Leaving the home is medically contraindicated at this time without the asist of a device and/or another person due th the listed conditions above and below. Reason homebound: weakness related to hospital stay Homebound supporting statement: Patient is generalised weak post hospitlisation and need help with going to appointments and labs draws ,wound care. Certification: Based on the above findings, I certify that this patient is confined to the home and needs intermittent nursing home care, physical therapy and/or speech therapy, or continues to need occupational therapy. The patient is under my care, and I have initiated the establishment of the plan of care. The patient will be followed by a physician who will periodically review the plan of care. Time Spent With Patient Time: Total time managing care of this patient today ____ minutes.
--- NOTE | 2024-11-25 17:56 | PC.NURSE ---
Pt mother called the unit, yelling and screaming at Unit sec that his meds where sent to [facility]. Pt then took the phone from this mother and started talking to this greeting card writer. Pt states [facility] wouldn't give his meds to a Friend to bring them home to them. Education attempted that Controlled substances can not be given to random people or friends Mother could pickling tank operator medication from [facility]. States they are having issues with their insurance. Guided patient on the phone to call [facility] and get the insurance phone number so they can gain autonomy and call the insurance to sort out mediations. Pt states understanding on the phone. Will call [facility] and his insurance.
== END 2024-11-25 14:28 | disposition home health service (06) | DRG 710 ==
LOC: HO.ED 12:43 → HO.EDOVER 14:45 → HO.IMC 19:10 → HO.S3 11-20 09:55
PROVIDERS: Emergency Medicine; Internal Medicine; Student in an Organized Health Care Education/Training Program; Surgery; Admitting Provider Internal Medicine; Emergency Provider Internal Medicine; PCP Family Medicine; Visit Provider Internal Medicine
PROC: 0WBM0ZZ Excision of Male Perineum, Open Approach (ICD-10-PCS; principal; 2024-11-23 14:00)
DX: A41.9 Sepsis, unspecified organism (principal); R65.21 Severe sepsis with septic shock; I33.0 Acute and subacute infective endocarditis; I12.0 Hypertensive chronic kidney disease with stage 5 chronic kidney disease or end stage renal disease; E87.4 Mixed disorder of acid-base balance; E11.649 Type 2 diabetes mellitus with hypoglycemia without coma; D63.1 Anemia in chronic kidney disease; I96 Gangrene, not elsewhere classified; L03.311 Cellulitis of abdominal wall; L03.115 Cellulitis of right lower limb; N18.6 End stage renal disease; L03.116 Cellulitis of left lower limb; E11.22 Type 2 diabetes mellitus with diabetic chronic kidney disease; E78.5 Hyperlipidemia, unspecified; B96.1 Klebsiella pneumoniae [K. pneumoniae] as the cause of diseases classified elsewhere; B96.4 Proteus (mirabilis) (morganii) as the cause of diseases classified elsewhere; I48.92 Unspecified atrial flutter; B95.62 Methicillin resistant Staphylococcus aureus infection as the cause of diseases classified elsewhere; F11.20 Opioid dependence, uncomplicated; Z20.822 Contact with and (suspected) exposure to COVID-19; F19.10 Other psychoactive substance abuse, uncomplicated; Z87.891 Personal history of nicotine dependence; Z89.511 Acquired absence of right leg below knee; Z99.2 Dependence on renal dialysis; Z79.4 Long term (current) use of insulin; Z79.01 Long term (current) use of anticoagulants; Z79.899 Other long term (current) drug therapy
CPT/HCPCS: 0241U; 36415; 71045; 72192; 80048; 80053; 80202; 80307; 81001; 82607; 82728; 82746; 82803; 82947; 83540; 83605; 83880; 84484; 85014; 85018; 85025; 85027; 86850; 86900; 86901; 86923; 87040; 87070; 87077; 87086; 87186; 87205; 87493; 90999; 93005; 97162; 99285; J0131; J0696; J1836; J1956; J2003; J2270; J2371; J2405; J2543; J2704; J2795; J3010; J3370; P9016; P9047

== ENCOUNTER → 2024-11-05 04:31 | Outpatient (BNV) | payer MEDICAID, SELFPAY | PROVIDERS: Emergency Provider Internal Medicine; Visit Provider Radiology Vascular & Interventional Radiology | DX: L03.311 Cellulitis of abdominal wall (principal); R50.9 Fever, unspecified | CPT/HCPCS: 72192 ==

== ENCOUNTER → 2024-11-05 05:08 | Outpatient (BNV) | payer MEDICAID, SELFPAY | PROVIDERS: Emergency Provider Internal Medicine; Visit Provider Internal Medicine Cardiovascular Disease | DX: R06.02 Shortness of breath (principal) | CPT/HCPCS: 93010 ==

== ENCOUNTER → 2024-11-05 14:44 | Outpatient (BNV) | payer MEDICAID, SELFPAY | PROVIDERS: Admitting Provider Internal Medicine; Emergency Provider Internal Medicine; Visit Provider Internal Medicine Nephrology | DX: N18.6 End stage renal disease (principal); Z99.2 Dependence on renal dialysis | CPT/HCPCS: 90935; 99232 ==

== ENCOUNTER → 2024-11-05 14:44 | Outpatient (BNV) | payer MEDICAID, SELFPAY | PROVIDERS: Admitting Provider Internal Medicine; Emergency Provider Internal Medicine; PCP Family Medicine; Visit Provider Nurse Practitioner Psychiatric/Mental Health | DX: F11.20 Opioid dependence, uncomplicated (principal) | CPT/HCPCS: 99232 ==

== ENCOUNTER → 2024-11-05 14:44 | Outpatient (BNV) | payer MEDICAID, SELFPAY | PROVIDERS: Admitting Provider Internal Medicine; Emergency Provider Internal Medicine; Visit Provider Internal Medicine | DX: N18.6 End stage renal disease (principal); Z99.2 Dependence on renal dialysis; D63.1 Anemia in chronic kidney disease | CPT/HCPCS: 99223; 99231; 99232 ==

== ENCOUNTER → 2024-11-05 14:44 | Outpatient (BNV) | payer MEDICAID, SELFPAY | PROVIDERS: Admitting Provider Internal Medicine; Emergency Provider Internal Medicine; PCP Family Medicine; Visit Provider Internal Medicine | DX: L03.311 Cellulitis of abdominal wall (principal); R78.81 Bacteremia; B95.62 Methicillin resistant Staphylococcus aureus infection as the cause of diseases classified elsewhere | CPT/HCPCS: 99222 ==

== ENCOUNTER → 2024-11-05 14:44 | Outpatient (BNV) | payer MEDICAID, SELFPAY | PROVIDERS: Admitting Provider Internal Medicine; Emergency Provider Internal Medicine; Visit Provider Surgery | DX: L03.311 Cellulitis of abdominal wall (principal) | CPT/HCPCS: 99222; 99231; 99232 ==

== ENCOUNTER → 2024-12-04 | Outpatient (BNV) | payer MEDICAID, SELFPAY | PROVIDERS: PCP Family Medicine; Visit Provider Internal Medicine Nephrology | DX: N18.6 End stage renal disease (principal) | CPT/HCPCS: 90962 ==

== ENCOUNTER 2024-12-17 18:28 | Inpatient (IN) | payer MEDICAID, SELFPAY ==
[2024-12-17] VITALS (10 sets, daily range): BP systolic 104–120; BP diastolic 52–64; PULSE 66–87; RESP 12–20; TEMP 36.7–38.3; O2SAT 94–99; BMI 28.8
--- NOTE | ~2024-12-17 | XR_ITS ---
CLINICAL HISTORY: sob 1 view chest x-ray Comparison: 11/05/2023 Findings: Lungs are clear without acute infiltrates. Previous pulmonary densities have resolved. No pneumothorax. Heart size normal. No acute bony abnormalities. Right central line unchanged. Impression: No acute processes This document has been electronically signed by: Mike Hernandez MD on 12/17/2024 20:22:39
--- NOTE | ~2024-12-17 | CT_ITS ---
CLINICAL HISTORY: infection osteo CT right femur with contrast Comparison: 11/05/2024 Findings: Subcutaneous edema lateral to right hip. This extends into proximal anterior thigh. Edema has improved considerably since prior. No focal fluid collection is identified. Skin irregularities anteromedial mid thigh. No underlying fluid collection is identified. Mid to distal thigh medial subcutaneous edema. Probable reactive inguinal adenopathy. Right iliac chain adenopathy also noted. Adenopathy is similar to prior study. No acute fracture or dislocation identified. No radiopaque foreign body noted. Impression: Multifocal subcutaneous edema as above Proximal edema has improved since prior CT pelvis No focal fluid collection or bony abnormality This document has been electronically signed by: Mike Hernandez MD on 12/17/2024 20:56:04
--- NOTE | 2024-12-17 18:46 | ECG_ITS ---
Test Reason : ELYTE ABNORMALITY Blood Pressure : */* mmHG Vent. Rate : 74 BPM Atrial Rate : 74 BPM P-R Int : 200 ms QRS Dur : 100 ms QT Int : 428 ms P-R-T Axes : 22 50 39 degrees QTcB Int : 475 ms Normal sinus rhythm Normal ECG When compared with ECG of 05-Nov-2024 05:16, T wave amplitude has increased in Lateral leads Referred By: Ninfa Cid Electronically Signed By: YUNIER SIMON MD
--- NOTE | 2024-12-17 19:06 | PC.NURSE ---
Pt has shallow diffuse wounds with purulent exudate ALL over back and buttocks. large crusting wound inner left thigh and deep woulf right outer thigh. Could only tolerate light cleansing on back. needs pain meds. has right BKA and wound on left foot. is axox3.
[2024-12-17 19:32] LABS: Basophils Absolute Auto 0.1 X10*3/uL (0.0-0.2); Basophils Percent Auto 0.4 % (0-2); Eosinophils Absolute Auto 0.5 X10*3/uL (0.0-0.4); Hematocrit 29.1 % (42.0-52.0); Hemoglobin 8.8 g/dl (14.0-18.0); Imm Gran Abs Auto 0.08 X10*3/uL (0.00-0.03); Imm Gran Pct Auto 0.6 % (0.0-0.4); Lymphocytes Absolute Auto 2.1 X10*3/uL (1.2-4.9); Lymphocytes Percent Auto 15.4 % (20-40); MANUAL DIFF FLAG NO; Mean Corpuscular HGB Conc 30.2 g/dl (31.0-36.0); Mean Corpuscular Hemoglobin 25.5 pg (27.0-33.0); Mean Corpuscular Volume 84.3 fL (80.0-98.0); Mean Platelet Volume 10.3 fL (9.4-12.4); Monocytes Absolute Auto 0.9 X10*3/uL (0.1-1.2); Monocytes Percent Auto 6.5 % (2-11); Neutrophils Absolute Auto 9.7 x10*3/uL (2.0-8.3); Neutrophils Percent Auto 73.1 % (45-73); Platelet Count 469 X10*3/uL (160-400); Red Blood Count 3.45 X10*6/uL (4.60-5.80); Red Cell Distribution Width 15.9 % (11.0-16.0); White Blood Count 13.3 X10*3/uL (4.8-10.8)
[2024-12-17 19:39] LABS: INTERNATIONAL NORM RATIO 1.1 (0.9-1.1); Prothrombin Time 12.7 SEC (10.9-12.4)
[2024-12-17 19:48] LABS: C Reactive Protein 17.09 mg/dL (< or = 0.50)
--- OUTSIDE RECORDS SUMMARY | 2024-12-17 19:48 | XMS_ITS | Encounter Summary ---
Author Organization [facility] Address [address] [place] [address] Phone Care Team Providers Care Can Labeler Name Role Phone Ck, Cristina Montano MD Primary Care Provider Randall meena Encounter Details Date Type Department Care Team (Late st Contact Info) Description 04/17/2022 Telephone [facility] [address] [place] [address] Rick Hurd MD [address] [facility] [address] [place] [address] Social History Tobacco Use Types Packs/Day Years Used Date Smoking Tobacco: Every Day Cigarettes Alcohol Use Standard Drinks/Week Comments No 0 (1 standard drink = 0.6 oz pur e alcohol) Sex and Gender Information Value Date Recorded Sex Assigned at Not on file Legal Sex Male 4:54 PM EST Gender Identity Not on file Sexual Orientation Not on file documented as of this encounter Miscellaneous Notes * Telephone Encounter - Rick Hurd MD - 04/18/2022 3:10 PM EDT I called the tel numb u left and it is wrong--I also called Deandre and LMOVM * Telephone Encounter - Golden Nikki - 04/17/2022 3:30 PM EDT Pts mother called, she has some concerns reg his CKD and would like to speak with you about them. She also has 3 individuals who are willing to donate a kidney to him if need be and would like to know more about that process. Please call her back at [phone] documented in this encounter Plan of Treatment Not on file documented as of this encounter Visit Diagnoses Not on filedocumented in this encounter Care Teams Can Labeler Relationship Specialty Start Date End Date Cristina Stover MD PCP - General 11/13/20 documented as of this encounter
--- OUTSIDE RECORDS SUMMARY | 2024-12-17 19:48 | XMS_ITS | Encounter Summary ---
Author Organization [facility] Address [address] [facility] [address] [place] [address] Phone Care Team Providers Care Beauty Specialist Name Role Phone Ck, Cristina Montano MD Primary Care Provider U navailable Reason for Visit * Reason Comments Med Refill Encounter Details Date Type Department Care Team (Late st Contact Info) Description 01/04/2022 Refill [facility] [address] [facility] [address] [place] [address] Rick Hurd MD [address] [facility] [address] [place] [address] Social History Tobacco Use Types [...] Telephone Encounter - Rick Hurd MD - 01/04/2022 11:25 AM EST Needs f/u in 2-3 weeks with me 1. tell them I sent rx but no refils 2. They must see me or have a telehealth visit with me before I can renew it again 3. when u call them be sure to make the f/u appt at the same time u inform them th rx was sent by me documented in this encounter Plan of Treatment Not on file documented as of this encounter Visit Diagnoses Not on filedocumented in this encounter Care Teams Beauty Specialist Relationship Specialty Start Date End Date [place], Cristina Montano MD PCP - General 11/13/20 documented as of this encounter
[2024-12-17 19:49] LABS: Beta-Hydroxybutyrate 0.05 mmol/L (0.02-0.27)
[2024-12-17 19:49] LABS: Lactic Acid 1.5 mmol/L (0.5-2.0)
--- OUTSIDE RECORDS SUMMARY | 2024-12-17 19:49 | XMS_ITS | Encounter Summary ---
Author Organization [facility] Address [address] [place] [address] [address] [address] Care Team Providers Care Passenger Elevator Operator Name Role Phone Cristina Stover MD Primary Care Provider [phone]- [phone] Cristina Stover MD Primary Care Provider [phone]- [phone] Cristina Stover MD Primary Care Provider +1- [phone] Reason for Visit * Reason Comments Med Refill Encounter Details Date Type Department Care Team (Late st Contact Info) Description 05/26/2023 Refill [facility] [address] [place] [address] Araseli Rucker ANP [address] [place] [address] Social History Tobacco Use Types Packs/Day Years Used Date Smoking Tobacco: Never Assessed Sex and Gender Information Value Date Recorded Sex Assigned at Male 09/02/2022 10:14 AM EDT Legal Sex Male 10:14 AM EDT Gender Identity Male 09/02/2022 10:14 AM EDT Sexual Orientation Straight 09/02/2022 10 :14 AM EDT documented as of this encounter Miscellaneous Notes * Telephone Encounter - Rhianna Daniel RN - 05/26/2023 12:48 PM EDT Pharmacy called and stated they anted covering provider to approve refill request as PCP is not in. documented in this encounter Plan of Treatment Not on file documented as of this encounter Visit Diagnoses Not on filedocumented in this encounter Care Teams Passenger Elevator Operator Relationship Specialty Start Date End Date Cristina Stover MD [address] [place] [id number] PCP - General Family Medicine 05/20/14 12/30/23 Cristina Stover MD [address] [place] [phone] PCP - General Family Medicine 01/06/24 08/29/24 Cristina Stover MD [address] [place] [id number] PCP - General Family Medicine 11/29/24 documented as of this encounter
--- OUTSIDE RECORDS SUMMARY | 2024-12-17 19:49 | XMS_ITS | Encounter Summary ---
Author Organization [facility] Address [address] [facility] 7 [place] [address] Care Team Providers Care Fagoter Name Role Phone Cristina Stover MD Primary Care Provider +1- [phone] Reason for Visit * Reason Comments Transition Of Care (Tcm) HDF unscheduled Encounter Details Date Type Department Care Team ([facility] st Contact Info) Description 12/09/2024 Patient Outreach [facility] [address] [place] [address] Cristina Stover MD [address] [place] [address] Transition Of Care (Tcm) (HDF unscheduled) Social History Tobacco Use Types Packs/Day Years Used Date Smoking Tobacco: Every Day Cigarettes Smokeless Tobacco: Never Alcohol Use Standard Drinks/Week Comments Never 0 (1 standard drink = 0.6 oz pur e alcohol) Housing Stability Answer Date Recorded What is your housing situation today? I have ericdileep abdi 08/18/[address] you li ve. Do you have problems with any of the following? None of the above 08/18/2023 Food Insecurity Answer Date Recorded Within the past 12 months, y ou worried that your food would run out before you got money to buy more: Never True 08/18/2023 Within the past 12 months,th e food you bought just didn't last and you didn't have enough money to get more: Never True Transportation Answer Date Recorded In the past 12 months, has l ack of transportation kept you from medical appts, meetings, work or from getting things needed for daily living? Yes, it has kept me from medical appointments or getting medications.;Yes, it has kept me from non-medical meetings, work, or getting things that I need 08/11/2023 Utilities Answer Date Recorded In the past 12 months, has t he electric, gas, oil or water company threatened to shut off services in your home? No 08/18/2023 Depression Answer Date Recorded Patient Health Questionnaire-2 Score 0 07/14/2023 Sex and Gender Information Value Date Recorded Sex Assigned at Male 09/02/2022 10:14 AM EDT Legal Sex Male 10:14 AM EDT Gender Identity Male 09/02/2022 10:14 AM EDT Sexual Orientation Straight 09/02/2022 10 :14 AM EDT documented as of this encounter Miscellaneous Notes * Significant Event - Vesna Guardado - 12/09/2024 10:51 AM EST 12/09/24 1051 Hospital Discharges and Admission for [facility] Type of Visit Hospital Admission Date of Admission/Visit 10/26/24 Date of Discharge 12/07/24 Facility [facility] Diagnosis Atrial Fib Disposition Discharged Home Follow-Up Actions Follow-Up Needed Provider appointment Follow-Up Outcome Left Voicemail Initial Contact Date 12/09/24 CC Vesna placed outbound call to patient for HDF outreach. CC placed second outreach call to offerpatient with an HDF appointment with provider. No answer at this time. Patient's name and were not confirmed. CC left detailed message educating patient on importance of following up with provider following an inpatient admission. Provided contact information requesting a call back in order to schedule the HDF appointment. Patient educated via voicemail on extended clinic hours on Mondays andWednesdays, and Walk-[facility] Urgent Care [facility]ated [facility]. [facility] which offer night time triage service and option to transfer to meteorologist liaison provider if needed. CC will await return call from the patient. documented in this encounter Plan of Treatment Not on file documented as of this encounter Visit Diagnoses Not on filedocumented in this encounter Care Teams Fagoter Relationship Specialty Start Date End Date Cristina Stover MD [address] [place] [address] PCP - General Family Medicine 11/29/24 documented as of this encounter
--- OUTSIDE RECORDS SUMMARY | 2024-12-17 19:49 | XMS_ITS | Encounter Summary ---
Author Organization [employer] Address [address] [facility] 7 [place] [address] Care Team Providers Care Automation Engineer Name Role Phone Cristina Stover MD Primary Care Provider +1- [phone] Reason for Visit * Reason Comments Care Coordination CM/CHW outreach Encounter Details Date Type Department Care Team (Latest Contact Info) Description 12/01/2024 Patient Outreach [facility] [address] [place], [place] [phone] Cristina Stover MD [address] [place], [place] [phone] Care Coordination (CM/CHW outreach) Social History Tobacco Use Types Packs/Day Years Used Date Smoking Tobacco: Every Day Cigarettes Smokeless Tobacco: Never Alcohol Use Standard Drinks/Week Comments Never 0 (1 standard drink = 0.6 oz pur e alcohol) Housing Stability Answer Date Recorded What is your housing situation today? I have eric abdi 08/18/[address] you [...] AM EDT documented as of this encounter Progress Notes * Debby Bennett - 12/01/2024 9:16 AM EST CHW Debby Bennett, placed outbound call to patient in regards to offer Adult Complex Care Program and SDOH services. No answer at this time. CHW LVM introducing herself from [facility] CMDepartment with CHW's name, department and direct contact number requesting call back. Will re-attempt to contact within 5 days. and address not confirmed. documented in this encounter Plan of Treatment Not on file documented as of this encounter Visit Diagnoses Not on filedocumented in this encounter Care Teams Automation Engineer Relationship Specialty Start Date End Date Cristina Stover MD [address] [place] [address] PCP - General Family Medicine 11/29/24 documented as of this encounter
--- OUTSIDE RECORDS SUMMARY | 2024-12-17 19:49 | XMS_ITS | Encounter Summary ---
Author Organization [employer] Address [address] [place] [address] 7 [place] [address] Care Team Providers Care Echo Technologist Name Role Phone Cristina Stover MD Primary Care Provider +1- [phone] Cristina Stover MD Primary Care Provider +1- [phone] Cristina Stover MD Primary Care Provider +1- [phone] Encounter Details Date Type Department Care Team (Late st Contact Info) Description 11/19/2022 Orders Only [facility] [address] [place], [place] [phone] Nay Benitez LPN Social History Tobacco Use Types Packs/Day Years Used Date Smoking Tobacco: Never Assessed Sex and Gender Information Value Date Recorded Sex Assigned at Male 09/02/2022 10:14 AM EDT Legal Sex Male 10:14 AM EDT Gender Identity Male 09/02/2022 10:14 AM EDT Sexual Orientation Straight 09/02/2022 10 :14 AM EDT documented as of this encounter Plan of Treatment Not on file documented as of this encounter Visit Diagnoses Not on filedocumented in this encounter Care Teams Echo Technologist Relationship Specialty Start Date End Date Cristina Stover MD [address] [place] [address] PCP - General Family Medicine 05/20/14 12/30/23 Cristina Stover MD [address] [place] [address] PCP - General Family Medicine 01/06/24 08/29/24 Cristina Stover MD [address] [place] [address] PCP - General Family Medicine 11/29/24 documented as of this encounter
--- OUTSIDE RECORDS SUMMARY | 2024-12-17 19:49 | XMS_ITS | Encounter Summary ---
Author Organization [employer] Address [address] [place] [address] 7 [place] [address] Care Team Providers Care Job Specification Writer Name Role Phone Cristina Stover MD Primary Care Provider +1- [phone] Cristina Stover MD Primary Care Provider +1- [phone] Cristina Stover MD Primary Care Provider +1- [phone] Encounter Details Date Type Department Care Team (Late st Contact Info) Description 01/17/2023 Orders Only [facility] MED & PEDS [address] [place], [place] [phone] Nay Benitez LPN Social History Tobacco Use [...] on filedocumented in this encounter Care Teams Job Specification Writer Relationship Specialty Start Date End Date Cristina Stover MD [address] [place] [address] PCP - General Family Medicine 05/20/14 12/30/23 Cristina Stover MD [address] [place] [address] PCP - General Family Medicine 01/06/24 08/29/24 Cristina Stover MD [address] [place] [address] PCP - General Family Medicine 11/29/24 documented as of this encounter
--- OUTSIDE RECORDS SUMMARY | 2024-12-17 19:49 | XMS_ITS | Encounter Summary ---
Author Organization [employer] Address [address] [facility] 7 [place] [address] Care Team Providers Care Waist Presser Name Role Phone Cristina Stover MD Primary Care Provider +1- [phone] Cristina Stover MD Primary Care Provider +1- [phone] Cristina Stover MD Primary Care Provider +1- [phone] Reason for Visit * Reason Onset Date Comments Hospital Follow-up 11/26/2023 Encounter Details Date Type Department Care Team ([facility] st Contact Info) Description 11/26/2023 Telephone [facility] [address] [place], [place] [phone] Cristina Stover MD [address] [place], [place] [phone] Hospital Follow-up Social History Tobacco Use Types Packs/Day Years [...] encounter Miscellaneous Notes * Telephone Encounter - Chasity Chery - 11/26/2023 12:59 PM EST Tc from pt requesting a HDF appt. Hospital: [facility] Date of admission: 11/16/2023 Discharge date: 11/25/2023 Diagnosed: Surgery (amputation) documented in this encounter Plan of Treatment Not on file documented as of this encounter Visit Diagnoses Not on filedocumented in this encounter Care Teams Waist Presser Relationship Specialty Start Date End Date Cristina Stover MD [address] [place] [address] PCP - General Family Medicine 05/20/14 12/30/23 Cristina Stover MD [address] [place] [address] PCP - General Family Medicine 01/06/24 08/29/24 Cristina Stover MD [address] [place] [address] PCP - General Family Medicine 11/29/24 documented as of this encounter
--- OUTSIDE RECORDS SUMMARY | 2024-12-17 19:49 | XMS_ITS | Encounter Summary ---
Author Organization [employer] Address [address] [place] [address] [address], [place] [address] Care Team Providers Care Concrete Boom Operator Name Role Phone Cristina Stover MD Primary Care Provider +1- [phone] Cristina Stover MD Primary Care Provider +1- [phone] Cristina Stover MD Primary Care Provider +1- [phone] Encounter Details Date Type Department Care Team (Late st Contact Info) Description 06/04/2023 Orders Only [facility] [address] [place] [address] Cristina Stover MD [address] [place] [address] Uncomplicated opioid dependence (CMS/HCC); Polysubstance abuse (CMS/HCC); Amputation of foot (CMS/HCC); Altered mental status, unspecified altered mental status type Social History Tobacco Use Types Packs/Day Years [...] documented as of this encounter Visit Diagnoses Diagnosis Uncomplicated opioid dependence (CMS/HCC) Polysubstance abuse (CMS/HCC) Other, mixed, or unspecified nondependent drug abuse, unspecified Amputation of foot (CMS/HCC) Altered mental status, unspecified altered mental status type documented in this encounter Care Teams Concrete Boom Operator Relationship Specialty Start Date End Date Cristina Stover MD [address] [place] [address] PCP - General Family Medicine 05/20/14 12/30/23 Cristina Stover MD [address] [place] [address] PCP - General Family Medicine 01/06/24 08/29/24 Cristina Stover MD [address] [place] [address] PCP - General Family Medicine 11/29/24 documented as of this encounter
--- OUTSIDE RECORDS SUMMARY | 2024-12-17 19:49 | XMS_ITS | Encounter Summary ---
Author Organization [employer] Address [address] [facility] 7t [place] [address] Care Team Providers Care Credit Collections Rep Name Role Phone Unavailable Primary Care Provider Unavailabl e Reason for Visit * Reason Comments Care Coordination CM/CHW outreach Encounter Details Date Type Department Care Team (Latest Contact Info) Description 11/26/2024 Patient Outreach [facility] [address] [place] [address] Cristina Stover MD [address] [place] [address] Care Coordination (CM/CHW outreach) Social History Tobacco [...] t he electric, gas, oil or water [employer] threatened to shut off services in your [...] encounter Progress Notes * Debby Bennett - 11/26/2024 9:22 AM EST CHW Debby Bennett called patient to introduce Adult Complex Care Program. Patient's name, and Address was confirmed. Program information was provided to the patient. Patient declined to participate in program. Provided patient with direct contact information for future reference. documented in this encounter Plan of Treatment Not on file documented as of this encounter Visit Diagnoses Not on filedocumented in this encounter
--- OUTSIDE RECORDS SUMMARY | 2024-12-17 19:49 | XMS_ITS | Clinical Summary ---
Author Organization [facility] Address [address] [place] [address] Phone Care Team Providers Care Food Crops Farm Hand Name Role Phone Cristina Stover MD Primary Care Provider U navailable Allergies No known active allergies Medications acetaminophen (TYLENOL) 500 MG tablet Take 1 tablet by mouth 4 (four) times a day Active gabapentin (NEURONTIN) 100 MG capsule Take 1 capsule by mouth 2 (two) times a day Active glipiZIDE (GLUCOTROL) 10 MG tablet Take 1 tablet by mouth 1 (one) time each day Active insulin glargine (Lantus SoloStar) 100 UNIT/ML injection Active Lidocaine HCl 3 % cream by Other route 03/02/2020 Active lisinopril (PRINIVIL,ZESTR IL) 20 MG tablet Take 1 tablet by mouth 1 (one) time each day Active Patiromer Sorbitex Calcium (Veltassa) 8.4 g pack 1 packet by Other route 1 (one) time each day 11/25/2019 Active FREESTYLE LITE test strip TEST BLOOD SUGAR 3 TIMES A DAY 12/04/2021 Active Melatonin 5 MG tablet Take 1 tablet by mouth at night if needed 12/04/2021 Active atorvastatin (LIPITOR) 40 MG tablet Take 40 mg by mouth at bed time 12/04/2021 Active Invokana 100 MG tablet TAKE 1 TABLET BY MOUTH EVERY DAY 30 tablet 11 09/11/2023 Active Active Problems Problem Noted Date Diagnosed Date Primary insomnia 07/14/2023 Overview (01/23/2024): Last Assessment & Plan: Start trazodone Counseled re tight control of HTN, DM and avoid recreational drug use. FU with PCP Tobacco dependence syndrome 06/23/2023 Overview (01/23/2024): -motivational interviewing done Peripheral vascular disease 06/23/2023 Overview (01/23/2024): Last Assessment & Plan: Sec to DM, HTN, smoking, cocaine use. 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 Has fu appt next week, urged to attend to be evaluated for leg prothesis. 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 Will rx transport wheelchair while he gets fitted with right leg prosthesis. Continue gabapentin for pain + tight control of underlying conditions as above Osteomyelitis 06/23/2023 Coronary arteriosclerosis 06/23/2023 Polysubstance abuse 06/04/2023 Overview (01/23/2024): Last Assessment & Plan: Patient states he hasn't used in many months, doesn't see it as an issue at this time. He's adamant that he's not using despite a recent POS utox. I discussed with him and his mother the consequences of recreational drug use, including complication of current conditions, depression, liver disease and even . He said he will look for assistance if he thinks he's going back to use. Feels safe at home at this time (lvies with his mother) . Opioid dependence 06/04/2023 Altered mental status 06/04/2023 Overview (01/23/2024): Admitted 05/04/23 to [facility] for encephalopathy thought to be cocaine related. he was discharged against medical advice. Seen in [place] [facility] 05/09/23 with repot of myoclonic spasms. Urine drug screen positive for opiates, fentanyl and cocaine.seen 05/11/23 in [place] [facility] for continued abnormal movents and discharged home. Ad[facility] 05/12/23-05/14/23 for possible seizure activity. He presented lethargic and received narcan with immediate response. He was loaded with Keppra for possible seizures. 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 Letter sent to the referring source and to the pt.Pt did not keep 2 sched appts. Letter sent to the referring source. 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 Letter sent to the referring source and to the pt.Pt did not keep 2 sched appts. Letter sent to the referring source. Type 2 diabetes mellitus 05/04/2012 Overview (01/23/2024): Diabetes is controlled. -No results found for: HGBA1C -No results found for: POCA1C - Lab Results Component Value Date CREATININE 3.51 (H) 05/05/2023 -Changes: -Esteban/Arb: -Statin therapy: -Diabetic eye exam: Eye and Lasik 08/2020 no evidence of retinopathy encouraged to follow up -Diabetic foot exam: -Continue lifestyle modifications -Continue current medications Last Assessment & Plan: Uncontrolled, A1c is 11. I will increase Lantus to 20u for now.Check CMP and Metformin or Januvia can be started if GFR > 35. FU with PCP in 4w. Obstructive sleep apnea syndrome 05/04/2012 Overview (01/23/2024): -Sleep study in March 2015 revealed severe obstructive sleep apnea. Multiple no shows. -Ree-established with Sleep Medicine in 08/2019 for a sleep study. Did not follow up. -Self discontinued CPAP machine due to caused anxiety. Morbid obesity 05/04/2012 Gastroesophageal reflux disease 05/04/2012 Immunizations Name Administration Dates Next Due Hepatitis B 11/12/2018,07/25/2016,12/28/2014 IPV 05/10/1984, 9,1978,08/21 Influenza Split 07/29/2012 Influenza, Injectable, [place] Canine Kidney, Preservative Free 11/16/2015 Influenza, Quadrivalent, Pre servative Free 08/05/2019,11/12/2018,07/26/2015,12/28 Influenza, Quadrivalent, Wit h Preservative 07/25/2016 MMR 09/17/1990 Measles 08/14/1981 Mumps 05/10/1984 Pneumococcal Polysaccharide 11/16/2015 Tdap 12/28/2014 Family History Medical History Relation Comments Diabetes Father Diabetes Mother Hypertension Mother Relation Status Comments Father Alive Mother Alive Social History Tobacco Use Types Packs/Day Years Used Date Smoking Tobacco: Every Day Cigarettes Alcohol Use Standard Drinks/Week Comments No 0 (1 standard drink = 0.6 oz pur e alcohol) Sex and Gender Information Value Date Recorded Sex Assigned at Not on file Legal Sex Male 4:54 PM EST Gender Identity Not on file Sexual Orientation Not on file Last Filed Vital Signs Vital Sign Reading Time Taken Comments Blood Pressure 108/66 11/25/2019 12:00 PM EST Pulse 90 11/25/2019 12:00 PM EST Temperature - - Respiratory Rate - - Oxygen Saturation 99% 11/25/2019 12:00 PM EST Inhaled Oxygen Concentration - - Weight 110 kg (243 lb) 11/25/2019 12:00 PM EST Height 175.3 cm (5' 9 ) 11/25/2019 12:00 PM EST Body Mass Index 35.88 11/25/2019 12:00 PM EST Plan of Treatment Health Maintenance Due Date Last Done Comments Hepatitis B Vaccine (1 of 3 - 19+ 3-dose series) 1997 11/12/2018, 07/25/2016, 12/28/2014 Pneumococcal Vaccine: Pediat rics (0 to 5 Years) and At-Risk Patients (6 to 64 Years) (2 of 2 - PCV) 11/16/2016 11/16/2015 Diabetes: Ophthalmology Exam 12/03/2020 Diabetes: Pedal Pulse Checked 12/03/2020 Diabetes: Sensory Foot Exam 12/03/2020 Diabetes: Visual Foot Exam 12/03/2020 Diabetes: Hemoglobin A1C 10/13/2023 07/14/2023 Influenza Vaccine (#1) 2024 9, 11/12/2018, 07/25/2016, Additional history exists Insurance [place]ID [place] Care Teams Food Crops Farm Hand Relationship Specialty Start Date End Date Ck, Cristina Montano MD PCP - General 11/13/20
--- OUTSIDE RECORDS SUMMARY | 2024-12-17 19:49 | XMS_ITS | Clinical Summary ---
Author Organization [employer] Address [address] [facility] [address] [place] [address] Care Team Providers Care Jack Tamp Operator Name Role Phone Cristina Stover MD Primary Care Provider [phone] Allergies No known active allergies Medications Multiple Vitamin (Daily-Mino Multivitamin) tablet Take 1 tablet by mouth in the morning. 3 Active Blood Pressure Monitor kitIndications:Es sential hypertension Use as directed 3x/week 1 kit 3 Active traZODone (Desyrel) 50 MG tabletIndications :Primary insomnia Take 1 tablet (50 mg) by mouth at bedtime. 30 tablet 3 Active insulin lispro (HumaLOG) 100 UNIT/ML injection Use as directed per sliding scale 111-150, 0 units; 151-200, 2 units; 201-250, 4 units; 251-300, 6 units; 301-350, 8 units; Call MD if BG >350 4 Active oxyCODONE (Roxicodone) 10 MG immediate release tablet TAKE 1 TABLET BY MOUTH EVERY 4 HOURS NEEDED FOR PAIN FOR 7 DAYS 4 Active melatonin 5 MG tabletIndications :Other insomnia TAKE 1 TABLET BY MOUTH AT BEDTIME NEEDED for SLEEP 30 tablet 5 4 Active Pentips 32G X 4 MM miscIndications:T ype 2 diabetes mellitus with stage 3 chronic kidney disease, with long-term current use of insulin, unspecified whether stage 3a or 3b CKD (CMS/HCC) USE FOUR TIMES DAILY WITH INSULIN DIRECTED 100 each 3 4 Active Alcohol Swabs (Alcohol Prep) 70 % padsIndications:T ype 2 diabetes mellitus with stage 3 chronic kidney disease, with long-term current use of insulin, unspecified whether stage 3a or 3b CKD (CMS/HCC) USE THREE TIMES DAILY DIRECTED 100 each 11 4 Active FREESTYLE LITE test stripIndications: Type 2 diabetes mellitus with stage 3 chronic kidney disease, with long-term current use of insulin, unspecified whether stage 3a or 3b CKD ([facility]) TEST BLOOD SUGAR THREE TIMES DAILY 100 strip 11 4 Active TRUEplus Lancets 33G miscIndications:D iabetes mellitus, stable ([facility]) TEST BLOOD SUGAR THREE TIMES DAILY 100 each 11 4 Active atorvastatin (Lipitor) 40 MG tabletIndications :Dyslipidemia TAKE 1 TABLET BY MOUTH AT BEDTIME 90 tablet 4 Active omeprazole (PriLOSEC) [address] capsuleIndication s:Unspecified abdominal pain TAKE 1 CAPSULE BY MOUTH EVERY DAY BEFORE BREAKFAST 90 capsule 4 Active amiodarone (Pacerone) 200 MG tablet Take 1 tablet by mouth Once per day. Active apixaban (Eliquis) 5 MG tablet Take 1 tablet by mouth 2 times daily. Active metoprolol succinate XL (Toprol-XL) 100 MG 24 hr tablet Take 1 tablet by mouth Once per day. Do not crush or chew. Active insulin glargine (Lantus SoloStar) 100 UNIT/ML pen Inject 10 Units under the skin at bedtime. Active Buprenorphine HCl-Naloxone HCl (Suboxone) 8-[address] 1 Film under the tongue 3 times daily. Active calcium acetate (Phoslo) 667 MG capsule Take 1,334 mg by mouth with breakfast, with lunch, and with evening meal. Active calcitriol (Rocaltrol) 0.25 MCG capsule Take 2 capsules by mouth Once per day. Active Sodium Hypochlorite (Dakins, 1/4 strength,) 0.125 % solution WASH WOUND DAILY WITH DAKINS AND COVER WITH DCD DIRECTED 4 Active Active Problems Problem Noted Date Diagnosed Date Atrial flutter 10/05/2024 Overview (10/05/2024): -dx in [facility] 09/2024 Primary insomnia 07/14/2023 Assessment & Plan (07/14/2023 10:26 PM EDT): Start trazodone Counseled re tight control of HTN, DM and avoid recreational drug use. FU with PCP Chronic renal disease, stage IV 06/23/2023 Overview (06/23/2023): -With significant proteinuria due to T2DM and HTN based on kidney biopsy. -Recommend strict BG monitoring and BP monitoring. -Avoid NSAIDs and nephrotoxic agents -Continue ESTEBAN inhibitor, lisinopril 20 mg every day but continued difficulties of hyperkalemia -Followed by Dr. Hurd Colon cancer screening 06/23/2023 Overview (12/10/2023): -referral placed 07/24/23 Health care maintenance 06/23/2023 Overview (06/23/2023): -next physical exam due after -eye care facilitated by [facility] last visit 08/10/2020 -dental home is Coronary artery disease invo lving tunica-biloxi coronary artery of tunica-biloxi heart without angina pectoris 06/23/2023 Osteomyelitis 06/23/2023 Tobacco dependence 06/23/2023 Overview (06/23/2023): -motivational interviewing done PAD (peripheral artery disease) 06/23/2023 Assessment & Plan (07/14/2023 10:32 PM EDT): Sec to DM, HTN, smoking, cocaine use. 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 Has fu appt next week, urged to attend to be evaluated for leg prothesis. 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 Will rx transport wheelchair while he gets fitted with right leg prosthesis. Continue gabapentin for pain + tight control of underlying conditions as above Uncomplicated opioid dependence 06/04/2023 Polysubstance abuse 06/04/2023 Assessment & Plan (07/14/2023 10:37 PM EDT): Patient states he hasn't used in many [...] this time (lvies with his mother) . 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 Dischargted 05/01/23 with ertapenem via PICC line for osteomyelitis. Returned to [facility] with AMS and underwent right BKA 05/2023 Assessment & Plan (07/14/2023 10:33 PM EDT): Right BKA stump Is healing properly, urged to fu with vascular surgery. Will need PT /OT eval for right leg prosthesis fitting I will rx a transport wheelchair for mobility Altered mental status 06/04/2023 Overview (06/04/2023): Admitted 05/04/23 to [facility] for encephalopathy thought to be cocaine related. he was discharged against medical advice. Seen in [place] ER 05/09/23 with repot of myoclonic spasms. Urine drug screen positive for opiates, fentanyl and cocaine.seen 05/11/23 in [place] ER for continued abnormal movents and discharged home. Admitted to [facility] 05/12/23-05/14/23 for possible seizure activity. He presented lethargic and received narcan with immediate response. He was loaded with Keppra for possible seizures. Renal osteodystrophy 01/07/2022 Hyperkalemia 03/30/2021 Positive reaction to tuberculin skin test 2015 Overview (06/04/2023): Pt did not keep a 3rd sched appt. Letter sent to the referring source and to the pt.Pt did not keep 2 sched appts. Letter sent to the referring source. Essential hypertension 12/28/2014 Overview (06/23/2023): -Blood pressure is at goal -Continue lifestyle modifications -Continue current medications Assessment & Plan (07/14/2023 10:28 PM EDT): Uncontrolled, he's off lisinopril due to MERLIN. Check GFR and restart lisinopril, probably 10mg only and fu with PCP Counseled re low salt diet/increase moderate physical activity/avodi cocaine use. Check home BP BIW and prn CP/STOKES/EGAN. BP machine sent to pharmacy Counseled to quit smoking FU w PCP in 1m Type 2 diabetes mellitus wit h stage 4 chronic kidney disease, with long-term current use of insulin 05/04/2012 Overview (03/30/2024): Diabetes is not controlled. Diabetes is followed with pharmacy [facility] by Dr. Terese Martin PharmD, referral placed 03/30/24. Lab Results Component Value Date HGBA1C 11.1 (A) 07/14/2023 Lab Results Component Value Date CREATININE 2.02 (H) 08/06/2023 -Esteban/Arb: -Statin therapy: atorvastatin 20mg -Diabetic eye exam: [facility] 08/2020 no evidence of retinopathy encouraged to follow up -Diabetic foot exam: -Continue lifestyle modifications -Continue current medications Assessment & Plan (07/14/2023 10:35 PM EDT): Uncontrolled, A1c is 11. I will increase Lantus to 20u for now.Check CMP and Metformin or Januvia can be started if GFR > 35. FU with PCP in 4w. Gastroesophageal reflux disease 05/04/2012 Morbid obesity 05/04/2012 Obstructive sleep apnea syndrome 05/04/2012 Overview (06/23/2023): -Sleep study in March 2015 revealed severe obstructive sleep apnea. Multiple no shows. -Ree-established with Sleep Medicine in 08/2019 for a sleep study. Did not follow up. -Self discontinued CPAP machine due to caused anxiety. Resolved Problems Problem Noted Date Diagnosed Date Resolved Date Opioid abuse 06/14/2022 06/23/2023 Diabetic nephropathy associa nelda with type 2 diabetes mellitus 03/30/2021 06/23/2023 Stage 3 chronic kidney disease 03/30/2021 06/23/2023 Encounters Date Type Department Care Team Description 12/09/[address] [phone] Cristina Stover MD FYI. 12/09/2024 Patient Outreach [address] [address] Cristina Stover MD Transition Of Care (Tcm) (HDF unscheduled) 12/08/[address] [address] Cristina Stover MD FYI 12/08/2024 Patient Outreach [address] [phone] Cristina Stover MD Transition Of Care (Tcm) (HDF unscheduled) 12/07/2024 Patient Outreach [address] [phone] Cristina Stover MD Care Coordination (CM/CHW outreach) 12/06/[address] [address] Cristina Stover MD Call Back Request 12/01/2024 Patient Outreach [address] [address] Cristina Stover MD Care Coordination (CM/CHW outreach) 11/30/[address] [address] Cristina Stover MD FYI 11/26/2024 Patient Outreach [address] [address] Kyle Mitchell MD Transition Of Care (Tcm) ([facility] unscheduled LVM ) 11/26/2024 Patient Outreach [address] [address] Cristina Stover MD Care Coordination (CM/CHW outreach) 11/10/2024 Patient Outreach [address] [address] Cristina Stover MD Care Coordination (CM/CHW outreach) 10/18/2024 Patient Outreach [address] [address] Cristina Stover MD Care Coordination (CM/CHW outreach) 10/14/2024 Patient Outreach [address] [address] Cristina Stover MD Transition Of Care (Tcm) (HDF- unable to schedule Not in service) 10/13/[address] [address] Cris Cobos NP No Show (Patient no show for HDF ) 10/11/[address] [address] Afsaneh Kurtz MA Chart Prep 10/08/[address] [address] Nagi Lubin, JOVITA Durable Medical Equipment 10/04/2024 Orders Only [facility] External Provider, [facility] 09/29/2024 Patient Outreach [facility] [address] [place] [phone] Cris Cobos NP Care Coordination (CM/CHW outreach) 09/28/2024 Orders Only GENERIC EXTERNAL DATA DEPARTMENT Provider, Generic External Data 09/27/2024 Patient Outreach [address] [address] Cris Cobos NP Transition Of Care (Tcm) (HDF scheduled) 09/24/2024 Patient Outreach [address] [address] Cris Cobos NP Transition Of Care (Tcm) (HDF scheduled) 09/22/2024 Patient Outreach [address] [phone] Cristina Stover MD Care Coordination (CM/CHW outreach) 09/21/2024 Patient Outreach [facility] [address] [place] [address] Shoshana Ness CNP Transition Of Care (Tcm) (HDF unscheduled, SDOH unable to reach number disconnected) 09/21/2024 Orders Only GENERIC EXTERNAL DATA DEPARTMENT Provider, Generic External Data 09/20/2024 Orders Only GENERIC EXTERNAL DATA DEPARTMENT Provider, Generic External Data from Last 3 Months Immunizations Name Administration Dates Next Due Hep B, adult 11/12/2018,07/25/2016,12/28/2014 IPV 05/10/1984, 9,1978,08/21 Influenza injectable quadriv alent IIV4 with preservative 07/25/2016 Influenza injectable quadriv alent preservative free 08/05/2019,11/12/2018,07/26/2015,12/28 Influenza, Injectable, MDCK, preservative free 11/16/2015 Influenza, Split (incl. kei fied surface antigen) 07/29/2012 MMR 09/17/1990 Measles 08/14/1981 Mumps 05/10/1984 Pneumococcal Polysaccharide PPSV23 11/16/2015 Tdap 12/28/2014 Social History Tobacco Use Types Packs/Day Years Used Date Smoking Tobacco: Every Day Cigarettes Smokeless Tobacco: Never Tobacco Cessation:Ready to Q uit: Not Asked; Counseling Given: Not Answered Alcohol Use Standard Drinks/Week Comments Never 0 [...] Orientation Straight 09/02/2022 10 :14 AM EDT Last Filed Vital Signs Vital Sign Reading Time Taken Comments Blood Pressure 150/96 07/14/2023 1:20 PM EDT Pulse 105 07/14/2023 1:20 PM EDT Temperature 36.4 ??C (97.5 ??F) 07/14/2023 1:20 PM ED T Respiratory Rate - - Oxygen Saturation 97% 07/14/2023 1:20 PM EDT Inhaled Oxygen Concentration - - Weight - - Height - - Body Mass Index - - Plan of Treatment Health Maintenance Due Date Last Done Comments CT Colonography 1978 Colonoscopy 1978 Colorectal Cancer Screening 1978 FIT DNA/Cologuard 1978 FIT 1978 FOBT 1978 Lipid Panel 1978 Sigmoidoscopy 1978 Diabetes: Foot Exam 1988 Eye Exam 1988 Alcohol/Substance Use Screening 1990 Family Planning (PISQ) 1993 Hepatitis A Vaccines (1 of 2 - Risk 2-dose series) 1997 Pneumococcal Vaccine: Pediatrics (0 to 5 Years) and At-Risk Patients (6 to 49) Years) (2 of 2 - PCV) 11/16/2016 11/16/2015 Diabetes: Urine Protein Screening 12/13/2020 12/13/2019, 11/17/2019, 10/14/2019 Diabetes: Hemoglobin A1C 10/13/2023 07/14/2023, 11/04 SDOH Screening 06/10/2024 06/10/2023 COVID-19 Vaccine ( season) 2024 Influenza Vaccine (#1) 2024 9, 11/12/2018, 07/25/2016, Additional history exists Depression Screening 07/14/2024 07/14/2023, 07/14/20 DTaP/Tdap/Td Vaccines (2 - Td or Tdap) 12/28/2024 12/28/2014 Tobacco Screening 09/16/2025 09/16/2024 Zoster Vaccines (1 of 2) 2028 RSV Patients and Patients Aged 60 years or older (1 - 1-dose 75+ series) 2053 IPV Vaccines Completed 05/10/1984, 06/04, 1978, Additional history exists Hepatitis B Vaccines Completed 11/12/2018, 07/25/2016, 12/28/2014 HIV Screening Completed 06/22/2019 Hepatitis C Screening Completed 06/22/2019 HIB Vaccines Aged Out No longer eligi ble based on patient's age to complete this topic HPV Vaccines Aged Out No longer eligi ble based on patient's age to complete this topic Meningococcal Vaccine Aged Out No ace marilyn eligible based on patient's age to complete this topic RSV under 20 months Aged Out No longe r eligible based on patient's age to complete this topic Rotavirus Vaccines Aged Out No longer eligible based on patient's age to complete this topic Procedures Procedure Name Priority Date/Time Associated Diagnosis Comments IR US GUIDE VENOUS ACCESS Routine 10/12/2024 10:00 AM EST IR CVC INSERT CENTRAL TUNNEL Routine 10/11/2024 9:17 AM EST XR CHEST 1 VIEW Routine 10/08/2024 9:20 AM EST IR CVC INSERT NON TUNNEL Routine 10/08/2024 8:00 AM EST XR CHEST 1 VIEW Routine 10/08/2024 7:[address] CHEST WO CONTRAST Routine 10/06/2024 4:17 PM EST IR CVC REMOVE TUNNEL W PRT/CAR RENTAL MANAGER Routine 10/06/2024 3:00 PM EST US DRAIN THORACENTESIS W IMAGE Routine 10/05/2024 9:00 AM EST VENOUS BLOOD GAS Routine 09/28/2024 7:54 AM EST XR CHEST 1 VIEW Routine 09/28/2024 6:02 AM EST XR CHEST 1 VIEW Routine 09/21/2024 5:25 PM EST US SCROTUM Routine 09/21/2024 4:29 PM EST GLUCOSE, WHOLE BLOOD Routine 09/21/2024 7:09 AM EST SARS COV2/INFLUENZA A/B AND RSV RNA QL NAAT Routine 09/21/2024 1:18 AM EST LACTIC ACID Routine 09/21/2024 12:[address] CHEST WO CONTRAST Routine 09/20/2024 11:53 PM EST VENOUS BLOOD GAS Routine 09/20/2024 11:3 4 PM EST COMPREHENSIVE METABOLIC PANEL Routine 09/20/2024 11:30 PM EST B TYPE NATRIURETIC PEPTIDE (BNP) Routine 09/20/2024 11:30 PM EST CBC WITH AUTO DIFFERENTIAL Routine 09/20/2024 11:30 PM EST XR CHEST 1 VIEW Routine 09/20/2024 10:08 PM EST POCT GLYCATED HEMOGLOBIN, TOTAL Routine 07/14/2023 1:40 PM EDT Type 2 diabetes mellitus with stage 4 chronic kidney disease, with long-term current use of insulin (CMS/HCC) ZZZ HISTORICAL MICROALBUMIN, RANDOM Routine 12/13/2019 1:40 PM EST HM HEPATITIS C ANTIBODY Routine 06/22/2019 HM HIV 1/2 ANTIGEN AND ANTIBODY Routine 06/22/2019 from Last 3 Months or Most Recently Relevant to Health Maintenance Results * IR US Guide - Venous Access (10/12/2024 10:00 AM EST) Anatomical Region Laterality Modality X-Ray Angiograph y 10/12/2024 10:0 0 AM EST Narrative 10/21/2024 2:54 PM EST ? [facility] ?[address] ?[place] [address] ?Interventional Radiology Rpt ? Signed ? Patient: Luong,Fazal ?MR#: [id number] ?? 3 ? : 1980 ?Acct:[id number] ? Age/Sex: 44 / M ?ADM Date: 10/04/24 ? Loc: HO.S3 ?359-1 ? Attending Dr: Harley Cooper MD ? Ordering Physician: Harley Cooper MD ?? Date of Service: 10/12/24 ?? Procedure(s): IR us guide venous access ?? Accession Number(s): [id number] ? cc: Cristina Stover MD; Harley Cooper MD ? CLINICAL HISTORY: ?? End-stage renal disease. Blood cultures are negative x ??48 hours. The ?? patient presents to interventional radiology for placement of a ?? tunneled central venous catheter for hemodialysis. ? PROCEDURES: ?? 1. Real-time ultrasound-guided access into the right internal jugular ?? vein after documentation of selected vessel patency, and permanent ?? imaging storing in the patient record. ?? 2. Placement of a 14.5 fr 27 cm tunneled, dual-lumen hemodialysis ?? catheter. ? Clinician: ?? Gurjit Palomo PA-C ? MEDICATIONS: ?? -Fentanyl 50 mcg, Lidocaine 1% 10 mL SQ. ?? -Antibiotics: None ?? -For additional details, please see nursing flowsheet. ? COMPLICATIONS: None. ?? ESTIMATED BLOOD LOSS: <5 ml ?? SPECIMENS: None ? FLUOROSCOPY TIME: 1.0 min ? PROCEDURE NOTE: ?? The procedure, risks, benefits, and alternatives were carefully ?? explained to patient, and written informed consent was obtained. The ?? patient was placed supine on the fluoroscopy table. A timeout was ?? performed. The right neck and chest was prepped and draped in usual ?? sterile fashion. ? Local anesthesia was administered to the access site with lidocaine. ?? Under ultrasound guidance, the right internal jugular vein was accessed ?? with a 5 Fr micropuncture set. A 0.035 in wire was advanced to the IVC ?? to maintain access during the tunneling process. Next, subcutaneous ?? lidocaine was administered to the chest. Using blunt dissection, a ?? subcutaneous tunnel was created that connects from the upper chest to ?? the venotomy site. The dialysis catheter was pulled through the tunnel. ?? The tract in the vein was dilated and a peel-away sheath was advanced ?? over the wire. The catheter was advanced through the sheath, which was ?? subsequently peeled away. The catheter was tested, flushed, and sutured ?? to the skin with its tip in the high right atrium. A permanent ?? fluoroscopic image of the chest was saved to PACS. The catheter ports ?? were packed with heparin per routine protocol. ? The patient was stable after the procedure and was transferred to the ?? post anesthesia care unit. This procedure was performed under moderate ?? sedation with a dedicated nurse and continuous monitoring of vital ?? signs. ? FINDINGS: ?? 1. Patent right internal jugular vein. ?? 2. Placement of a tunneled, dual-lumen hemodialysis catheter as above. ?? 3. Catheter flushes and aspirates very well with a 10 mL syringe. No ?? pneumothorax. ? IR/IR us guide venous access ?? IMPRESSION: ?? Placement of a tunneled hemodialysis catheter in the right internal ?? jugular vein. ? PLAN: ?? -The catheter may be used immediately. ? This procedure was performed by Gurjit Palomo PA-C, and directly ?? supervised by Dr. Morrell. ? Electronically signed by: ??Michael Morrell MD ??10/21/2024 02:51 PM EST RP ? Dictated By: ?Gurjit Palomo ? Signed By: ?<Electronically signed by Gurjit Palomo in OV> ? 10/21/24 1451 ?<Electronically signed by Michael Morrell MD in OV> ? 10/21/24 1453 ? DD/ 1000 ? TD/TT: 10/12/24 1142 ? Skiing Teacher: ? Procedure Note Franck, Image - 10/21/[address] [address] Interventional Radiology Rpt Signed Patient: Deandre Luong [facility]#: [id number] 3 : 1980Acct:[id number] Age/Sex: 44 / MADM Date: 10/04/24 Loc: .S3 359-[address]: Harley Cooper MD Ordering Physician: Harley Cooper MD Date of Service: 10/12/24 Procedure(s): IR us guide venous access Accession Number(s): [id number] cc: Cristina Stover MD; Harley Cooper MD CLINICAL HISTORY: End-stage renal disease. Blood cultures are negative x 48 hours. The patient presents to interventional radiology for placement of a tunneled central venous catheter for hemodialysis. PROCEDURES: 1. Real-time ultrasound-guided access into the right internal jugular vein after documentation of selected vessel patency, and permanent imaging storing in the patient record. 2. Placement of a 14.5 fr 27 cm tunneled, dual-lumen hemodialysis catheter. Clinician: Gurjit Palomo PA-C MEDICATIONS: -Fentanyl 50 mcg, Lidocaine 1% 10 mL SQ. -Antibiotics: None -For additional details, please see nursing flowsheet. COMPLICATIONS: None. ESTIMATED BLOOD LOSS: <5 ml SPECIMENS: None FLUOROSCOPY TIME: 1.0 min PROCEDURE NOTE: The procedure, risks, benefits, and alternatives were carefully explained to patient, and written informed consent was obtained. The patient was placed supine on the fluoroscopy table. A timeout was performed. The right neck and chest was prepped and draped in usual sterile fashion. Local anesthesia was administered to the access site with lidocaine. Under ultrasound guidance, the right internal jugular vein was accessed with a 5 Fr micropuncture set. A 0.035 in wire was advanced to the IVC to maintain access during the tunneling process. Next, subcutaneous lidocaine was administered to the chest. Using blunt dissection, a subcutaneous tunnel was created that connects from the upper chest to the venotomy site. The dialysis catheter was pulled through the tunnel. The tract in the vein was dilated and a peel-away sheath was advanced over the wire. The catheter was advanced through the sheath, which was subsequently peeled away. The catheter was tested, flushed, and sutured to the skin with its tip in the high right atrium. A permanent fluoroscopic image of the chest was saved to PACS. The catheter ports were packed with heparin per routine protocol. The patient was stable after the procedure and was transferred to the post anesthesia care unit. This procedure was performed under moderate sedation with a dedicated nurse and continuous monitoring of vital signs. FINDINGS: 1. Patent right internal jugular vein. 2. Placement of a tunneled, dual-lumen hemodialysis catheter as above. 3. Catheter flushes and aspirates very well with a 10 mL syringe. No pneumothorax. IR/IR us guide venous access IMPRESSION: Placement of a tunneled hemodialysis catheter in the right internal jugular vein. PLAN: -The catheter may be used immediately. This procedure was performed by Gurjit Palomo PA-C, and directly supervised by Dr. Morrell. Electronically signed by: Michael Morrell MD 10/21/2024 02:51 PM EST RP Dictated By: Gurjit Palomo Signed By: <Electronically signed by Gurjit Palomo in OV> 10/21/24 1451 <Electronically signed by Michael Morrell MD in OV> 10/21/24 1453 DD/ 1000 TD/TT: 10/12/24 1142 Skiing Teacher: [facility] External Provider IMG IR PROCEDURES Final Result * IR CVC Insert Central Tunnel (10/11/2024 9:17 AM EST) Anatomical Region Laterality Modality Body X-Ray Angiograph y 10/11/2024 9:17 AM EST Narrative 10/21/2024 2:54 PM EST ? [facility] ?[address] ?[place] [address] ?Interventional Radiology Rpt ? Signed ? Patient: Luong,Fazal ?MR#: [id number] ?? 3 ? : 1980 ?Acct:[id number] ? Age/Sex: 44 / M ?ADM Date: 12/02/24 ? Loc: HO.S3 ?359-1 ? Attending Dr: Harley Cooper MD ? Ordering Physician: Harley Cooper MD ?? Date of Service: 10/11/24 ?? Procedure(s): IR cvc insert central tunnel ?? Accession Number(s): [id number] ? cc: Cristina Stover MD; Harley Cooper MD ? CLINICAL HISTORY: ?? End-stage renal disease. Blood cultures are negative x ??48 hours. The ?? patient presents to interventional radiology for placement of a ?? tunneled central venous catheter for hemodialysis. ? PROCEDURES: ?? 1. Real-time ultrasound-guided access into the right internal jugular ?? vein after documentation of selected vessel patency, and permanent ?? imaging storing in the patient record. ?? 2. Placement of a 14.5 fr 27 cm tunneled, dual-lumen hemodialysis ?? catheter. ? Clinician: ?? Gurjit Palomo PA-C ? MEDICATIONS: ?? -Fentanyl 50 mcg, Lidocaine 1% 10 mL SQ. ?? -Antibiotics: None ?? -For additional details, please see nursing flowsheet. ? COMPLICATIONS: None. ?? ESTIMATED BLOOD LOSS: <5 ml ?? SPECIMENS: None ? FLUOROSCOPY TIME: 1.0 min ? PROCEDURE NOTE: ?? The procedure, risks, benefits, and alternatives were carefully ?? explained to patient, and written informed consent was obtained. The ?? patient was placed supine on the fluoroscopy table. A timeout was ?? performed. The right neck and chest was prepped and draped in usual ?? sterile fashion. ? Local anesthesia was administered to the access site with lidocaine. ?? Under ultrasound guidance, the right internal jugular vein was accessed ?? with a 5 Fr micropuncture set. A 0.035 in wire was advanced to the IVC ?? to maintain access during the tunneling process. Next, subcutaneous ?? lidocaine was administered to the chest. Using blunt dissection, a ?? subcutaneous tunnel was created that connects from the upper chest to ?? the venotomy site. The dialysis catheter was pulled through the tunnel. ?? The tract in the vein was dilated and a peel-away sheath was advanced ?? over the wire. The catheter was advanced through the sheath, which was ?? subsequently peeled away. The catheter was tested, flushed, and sutured ?? to the skin with its tip in the high right atrium. A permanent ?? fluoroscopic image of the chest was saved to PACS. The catheter ports ?? were packed with heparin per routine protocol. ? The patient was stable after the procedure and was transferred to the ?? post anesthesia care unit. This procedure was performed under moderate ?? sedation with a dedicated nurse and continuous monitoring of vital ?? signs. ? FINDINGS: ?? 1. Patent right internal jugular vein. ?? 2. Placement of a tunneled, dual-lumen hemodialysis catheter as above. ?? 3. Catheter flushes and aspirates very well with a 10 mL syringe. No ?? pneumothorax. ? IR/IR cvc insert central tunnel ?? IMPRESSION: ?? Placement of a tunneled hemodialysis catheter in the right internal ?? jugular vein. ? PLAN: ?? -The catheter may be used immediately. ? This procedure was performed by Gurjit Palomo PA-C, and directly ?? supervised by Dr. Morrell. ? Electronically signed by: ??Michael Morrell MD ??10/21/2024 02:51 PM EST RP ? Dictated By: ?Gurjit Palomo ? Signed By: ?<Electronically signed by Gurjit Palomo in OV> ? 10/21/24 1451 ?<Electronically signed by Michael Morrell MD in OV> ? 10/21/24 1453 ? DD/ 0917 ? TD/TT: 10/12/24 1141 ? Skiing Teacher: ? Procedure Note Franck, Jaelyn - 10/21/2024 [place] [address] Interventional Radiology Rpt Signed Patient: Deandre Luong [facility]#: [id number] 3 : 1980Acct:[id number] Age/Sex: 44 / MADM Date: 10/04/24 Loc: HO.S3 359-[address]: Harley Cooper MD Ordering Physician: Harley Cooper MD Date of Service: 10/11/24 Procedure(s): IR cvc insert central tunnel Accession Number(s): [id number] cc: Cristina Stover MD; Harley Cooper MD CLINICAL HISTORY: End-stage renal disease. Blood cultures are negative x 48 hours. The patient presents to interventional radiology for placement of a tunneled central venous catheter for hemodialysis. PROCEDURES: 1. Real-time ultrasound-guided access into the right internal jugular vein after documentation of selected vessel patency, and permanent imaging storing in the patient record. 2. Placement of a 14.5 fr 27 cm tunneled, dual-lumen hemodialysis catheter. Clinician: Gurjit Palomo PA-C MEDICATIONS: -Fentanyl 50 mcg, Lidocaine 1% 10 mL SQ. -Antibiotics: None -For additional details, please see nursing flowsheet. COMPLICATIONS: None. ESTIMATED BLOOD LOSS: <5 ml SPECIMENS: None FLUOROSCOPY TIME: 1.0 min PROCEDURE NOTE: The procedure, risks, benefits, and alternatives were carefully explained to patient, and written informed consent was obtained. The patient was placed supine on the fluoroscopy table. A timeout was performed. The right neck and chest was prepped and draped in usual sterile fashion. Local anesthesia was administered to the access site with lidocaine. Under ultrasound guidance, the right internal jugular vein was accessed with a 5 Fr micropuncture set. A 0.035 in wire was advanced to the IVC to maintain access during the tunneling process. Next, subcutaneous lidocaine was administered to the chest. Using blunt dissection, a subcutaneous tunnel was created that connects from the upper chest to the venotomy site. The dialysis catheter was pulled through the tunnel. The tract in the vein was dilated and a peel-away sheath was advanced over the wire. The catheter was advanced through the sheath, which was subsequently peeled away. The catheter was tested, flushed, and sutured to the skin with its tip in the high right atrium. A permanent fluoroscopic image of the chest was saved to PACS. The catheter ports were packed with heparin per routine protocol. The patient was stable after the procedure and was transferred to the post anesthesia care unit. This procedure was performed under moderate sedation with a dedicated nurse and continuous monitoring of vital signs. FINDINGS: 1. Patent right internal jugular vein. 2. Placement of a tunneled, dual-lumen hemodialysis catheter as above. 3. Catheter flushes and aspirates very well with a 10 mL syringe. No pneumothorax. IR/IR cvc insert central tunnel IMPRESSION: Placement of a tunneled hemodialysis catheter in the right internal jugular vein. PLAN: -The catheter may be used immediately. This procedure was performed by Gurjit Palomo PA-C, and directly supervised by Dr. Morrell. Electronically signed by: Michael Morrell MD 10/21/2024 02:51 PM [facility] Dictated By: Gurjit Palomo Signed By: <Electronically signed by Gurjit Palomo in OV> 10/21/24 0291 <Electronically signed by Michael Morrell MD in OV> 10/21/24 1453 DD/ 0917 TD/TT: 10/12/24 1141 Skiing Teacher: [facility] External Provider IMG IR PROCEDURES Final Result * XR Chest 1 View (10/08/2024 9:20 AM EST) Only the most recent of5 resultswithin the time period is included. Anatomical Region Laterality Modality Chest Radiographic Hilda ging 10/08/2024 9:20 AM EST Narrative 10/08/2024 10:26 AM EST ? [facility] ?[address] ?[place] [address] ?XRay Report ? Signed ? Patient: Deandre Luong M ?MR#: [id number] ?? 3 ? : 1980 ?Acct:[id number] ? Age/Sex: 44 / M ?ADM Date: 10/04/24 ? Loc: HO.IMC ?443-1 ? Attending Dr: Harley Cooper MD ? Ordering Physician: Rolanda Steel PA-C ?? Date of Service: 10/08/24 ?? Procedure(s): XR chest 1V ?? Accession Number(s): [id number] ? cc: Cristina Stover MD; Rolanda Steel PA-C ? EXAMINATION: ?? XR CHEST ? CLINICAL INFORMATION: ?? f/u chest tube removal ? COMPARISON: ?? CXR on 10/08/24 ? TECHNIQUE: ?? Frontal view of the chest was obtained. ? FINDINGS: ?? The cardiac silhouette is normal. There are no areas of consolidation. ?? There are no pleural effusions or pneumothoraces. The bones and soft ?? tissues are unremarkable for the patient's age. Chest tube removed. ? XR/XR chest 1V ?? IMPRESSION: ?? No pneumothorax. ? Electronically signed by: ??Deana Harris MD ??10/08/2024 10:23 AM EST ?? RP ? Dictated By: ?Deana Harris MD ? Signed By: ?<Electronically signed by Deana Harris MD in OV> ? 10/08/24 1023 ? DD/ 0920 ? TD/TT: 10/08/24 0925 ? Skiing Teacher: PN ? Procedure Note Donotuseinterpreter, Image - 10/08/[address] [address] XRay Report Signed Patient: Deandre Luong MMR#: [id number] 3 : 1980Acct:[id number] Age/Sex: 44 / MADM Date: 10/04/24 Loc: [facility] 443-[address]: Harley Cooper MD Ordering Physician: Rolanda Steel PA-C Date of Service: 10/08/24 Procedure(s): XR chest 1V Accession Number(s): [id number] cc: Cristina Stover MD; Rolanda Steel PA-C EXAMINATION: XR CHEST CLINICAL INFORMATION: f/u chest tube removal COMPARISON: CXR on 10/08/24 TECHNIQUE: Frontal view of the chest was obtained. FINDINGS: The cardiac silhouette is normal. There are no areas of consolidation. There are no pleural effusions or pneumothoraces. The bones and soft tissues are unremarkable for the patient's age. Chest tube removed. XR/XR chest 1V IMPRESSION: No pneumothorax. Electronically signed by: Deana Harris MD 10/08/2024 10:23 AM EST Dictated By: Deana Harris MD Signed By: <Electronically signed by Deana Harris MD in OV> 10/08/24 1023 DD/ 0920 TD/TT: 10/08/24 0925 Skiing Teacher: PN us [facility] External Provider IMG XR PROCEDURES Edited Result - Final * IR cvc insert non tunnel (10/08/2024 8:00 AM EST) Anatomical Region Laterality Modality X-Ray Angiograph y 10/08/2024 8:00 AM EST Narrative 10/08/2024 1:59 PM EST ? [place] [facility] ?[address] ?[place] [address] ?Interventional Radiology Rpt ? Signed ? Patient: Luong,Fazal ?MR#: [id number] ?? 3 ? : 1980 ?Acct:[id number] ? Age/Sex: 44 / M ?ADM Date: 10/04/24 ? Loc: HO.IMC ?443-1 ? Attending Dr: Harley Cooper MD ? Ordering Physician: Suri Gutierrez DNP, FNP-BC ?? Date of Service: 10/08/24 ?? Procedure(s): IR cvc insert non tunnel ?? Accession Number(s): [id number] ? cc: Cristina Stover MD; Suri Gutierrez DNP, FNP-BC ? CLINICAL HISTORY: ?? Patient requires dialysis. The patient presents to interventional ?? radiology for placement of a non-tunneled central venous catheter for ?? hemodialysis. ? PROCEDURES: ?? 1. Real-time ultrasound-guided access into the left internal jugular ?? vein after documentation of selected vessel patency, and permanent ?? imaging storing in the patient record. ?? 2. Placement of a 12.0 fr 24 cm non-tunneled,trialysis hemodialysis ?? catheter. ? MEDICATIONS: ?? -Lidocaine 1% 10 mL SQ. ?? -For additional details, please see nursing flowsheet. ? COMPLICATIONS: None. ?? ESTIMATED BLOOD LOSS: <5 ml ?? SPECIMENS: None ? FLUOROSCOPY TIME: 0.2 min ? PROCEDURE NOTE: ?? The procedure, risks, benefits, and alternatives were carefully ?? explained to patient, and written informed consent was obtained. The ?? patient was placed supine on the fluoroscopy table. A timeout was ?? performed. The left neck and chest was prepped and draped in usual ?? sterile fashion. ? Local anesthesia was administered to the access site with lidocaine. ?? Under ultrasound guidance, the left internal jugular vein was accessed ?? with a 4 Fr micropuncture set. A 0.035 in wire was advanced into the ?? IVC. The tract in the vein was serially dilated. Over the wire, a 12.0 ?? fr 24 non-tunneled, hemodialysis catheter was advanced, with the tip ?? located at the cavoatrial junction. The wire was removed. The catheter ?? was tested, flushed, and sutured to the skin. A permanent fluoroscopic ?? image of the chest was saved to PACS. The catheter ports were packed ?? with heparin per routine protocol. ? The patient was stable after the procedure and was transferred to the ?? medical floor. There were no immediate complications. ? FINDINGS: ?? 1. Patent left internal jugular vein. Occluded right internal jugular ?? vein ?? 2. Placement of a non-tunneled, dual-lumen hemodialysis catheter as ?? above. ?? 3. Catheter flushes and aspirates very well with a 10 mL syringe. No ?? pneumothorax. ? IR/IR cvc insert non tunnel ?? IMPRESSION: ?? Placement of a non-tunneled hemodialysis catheter in the left internal ?? jugular vein. ? PLAN: ?? -The catheter may be used immediately. ? Electronically signed by: ??Michael Morrell MD ??10/08/2024 01:56 PM EST RP ? Dictated By: ?Michael Morrell MD ? Signed By: ?<Electronically signed by Michael Morrell MD in OV> ?10/08/24 1356 ? DD/ 0800 ? TD/TT: 10/08/24 1353 ? Skiing Teacher: ? Procedure Note Franck, Jaelyn - 10/08/2024 [place] [address] Interventional Radiology Rpt Signed Patient: Deandre Luong [facility]#: [id number] 3 : 1980Acct:[id number] Age/Sex: 44 / MADM Date: 10/04/24 Loc: [facility] 443-[address]: Harley Cooper MD Ordering Physician: Suri Gutierrez DNP, FNP-BC Date of Service: 10/08/24 Procedure(s): IR cvc insert non tunnel Accession Number(s): [id number] cc: Cristina Stover MD; Suri Gutierrez DNP, FNP-BC CLINICAL HISTORY: Patient requires dialysis. The patient presents to interventional radiology for placement of a non-tunneled central venous catheter for hemodialysis. PROCEDURES: 1. Real-time ultrasound-guided access into the left internal jugular vein after documentation of selected vessel patency, and permanent imaging storing in the patient record. 2. Placement of a 12.0 fr 24 cm non-tunneled,trialysis hemodialysis catheter. MEDICATIONS: -Lidocaine 1% 10 mL SQ. -For additional details, please see nursing flowsheet. COMPLICATIONS: None. ESTIMATED BLOOD LOSS: <5 ml SPECIMENS: None FLUOROSCOPY TIME: 0.2 min PROCEDURE NOTE: The procedure, risks, benefits, and alternatives were carefully explained to patient, and written informed consent was obtained. The patient was placed supine on the fluoroscopy table. A timeout was performed. The left neck and chest was prepped and draped in usual sterile fashion. Local anesthesia was administered to the access site with lidocaine. Under ultrasound guidance, the left internal jugular vein was accessed with a 4 Fr micropuncture set. A 0.035 in wire was advanced into the IVC. The tract in the vein was serially dilated. Over the wire, a 12.0 fr 24 non-tunneled, hemodialysis catheter was advanced, with the tip located at the cavoatrial junction. The wire was removed. The catheter was tested, flushed, and sutured to the skin. A permanent fluoroscopic image of the chest was saved to PACS. The catheter ports were packed with heparin per routine protocol. The patient was stable after the procedure and was transferred to the medical floor. There were no immediate complications. FINDINGS: 1. Patent left internal jugular vein. Occluded right internal jugular vein 2. Placement of a non-tunneled, dual-lumen hemodialysis catheter as above. 3. Catheter flushes and aspirates very well with a 10 mL syringe. No pneumothorax. IR/IR cvc insert non tunnel IMPRESSION: Placement of a non-tunneled hemodialysis catheter in the left internal jugular vein. PLAN: -The catheter may be used immediately. Electronically signed by: Michael Morrell MD 10/08/2024 01:56 PM EST Dictated By: Michael Morrell MD Signed By: <Electronically signed by Michael Morrell MD in OV> 10/08/24 1356 DD/ 0800 TD/TT: 10/08/24 1353 Skiing Teacher: [facility] External Provider IMG IR PROCEDURES Edited Result - Final * CT Chest w/o Contrast (10/06/2024 4:17 PM EST) Only the most recent of2 resultswithin the time period is included. Anatomical Region Laterality Modality Body, Chest Computed Tomogra phy 10/06/2024 4:17 PM EST Narrative 10/08/2024 9:55 AM EST ? [facility] ?[address] ?[place] [address] ? CT Scan Report ? Signed ? Patient: Luong,Fazal ?MR#: [id number] ?? 3 ? : 1980 ?Acct:[id number] ? Age/Sex: 44 / M ?ADM Date: 10/04/24 ? Loc: HO.IMC ?443-1 ? Attending Dr: Harley Cooper MD ? Ordering Physician: Matteo Schneider MD ?? Date of Service: 10/06/24 ?? Procedure(s): CT chest wo IV con ?? Accession Number(s): [id number] ? cc: Cristina Stover MD; Matteo Schneider MD ? EXAMINATION: ?? CT CHEST WITHOUT CONTRAST ? CLINICAL INFORMATION: ?? Evaluate for left empyema. ? COMPARISON: ?? No prior chest CT. ? TECHNIQUE: ?? Multidetector volumetric CT imaging of the chest was done. Axial MIP ?? volume rendering provided. Sagittal and coronal reformatted images were ?? obtained. ? This CT examination was performed using dose optimization techniques as ?? appropriate, variously including the following: ?? *Automated exposure control ?? *Adjustment of mA and/or kV according to patient size (this includes ?? techniques or standardized protocols for targeted exams where dose is ?? matched to indication/reason for exam; i.e. extremities or head) ?? *Use of iterative reconstruction technique ? DLP: ?? 371 mGy-cm ? FINDINGS: ? Limited by beam hardening artifact. ? LUNGS/PLEURA: Mild elevation of the right hemidiaphragm. ? A small bore left chest tube enters posteriorly between the left 9th ?? and 10th ribs. Its [place] loop lies at the medial aspect of the left ?? costophrenic angle. The catheter appears kinked at its skin insertion ?? site (image 32, sagittal series 7). ? Small to moderate amount of right pleural fluid and small to moderate ?? left hydropneumothorax. Mild associated bibasilar predominantly ?? dependent airspace disease. ? No suspicious lung nodule identified. Patent central bronchi. ? MEDIASTINUM: Limited by anasarca and lack of intravenous contrast. No ?? evidence of adenopathy by size criteria. Normal-appearing thyroid. ?? Heart upper normal in size to mildly enlarged. Decreased blood pool ?? density, suggesting anemia. No pericardial effusion. ? CORONARY ARTERY CALCIFICATION: Moderate. ? CHEST WALL/AXILLA: Anasarca. Small amount of subcutaneous gas in the ?? right subclavian region. Mild bilateral gynecomastia. No ?? lymphadenopathy by size criteria. Probable reactive bilateral axillary ?? nodes. ? UPPER ABDOMEN: Unremarkable. ? OSSEOUS STRUCTURES: Old, healed fractures of the right eighth and ninth ?? ribs laterally. ? CT/CT chest wo IV con ?? IMPRESSION: ? A small bore left chest tube enters posteriorly between the left 9th ?? and 10th ribs. Its [place] loop lies at the medial aspect of the left ?? costophrenic angle. The catheter appears kinked at its skin insertion ?? site. Recommend clinical correlation. ? Small to moderate amount of right pleural fluid and small to moderate ?? left hydropneumothorax. Mild associated bibasilar predominantly ?? dependent airspace disease. ? Anasarca. ? Anemia. ? Additional findings as above. ? Electronically signed by: ??Uday Solares MD ??10/08/2024 09:52 AM EST RP ? Dictated By: ?Sujatha,Uday ? Signed By: ?<Electronically signed by Uday Solares in OV> ?10/08/24 0952 ? DD/ 1617 ? TD/TT: 10/06/24 1702 ? Skiing Teacher: ? Procedure Note Jaelyn Juárez - 10/08/[address] [address] [address] Scan Report Signed Patient: Deandre Luong [facility]#: [id number] 3 : 1980Acct:[id number] Age/Sex: 44 / MADM Date: 10/04/24 Loc: [facility] 443-[address]: Harley Cooper MD Ordering Physician: Matteo Schneider MD Date of Service: 10/06/24 Procedure(s): CT chest wo IV con Accession Number(s): [id number] cc: Cristina Stover MD; Matteo Schneider MD EXAMINATION: CT CHEST WITHOUT CONTRAST CLINICAL INFORMATION: Evaluate for left empyema. COMPARISON: No prior chest CT. TECHNIQUE: Multidetector volumetric CT imaging of the chest was done. Axial MIP volume rendering provided. Sagittal and coronal reformatted images were obtained. This CT examination was performed using dose optimization techniques as appropriate, variously including the following: *Automated exposure control *Adjustment of mA and/or kV according to patient size (this includes techniques or standardized protocols for targeted exams where dose is matched to indication/reason for exam; i.e. extremities or head) *Use of iterative reconstruction technique DLP: 371 mGy-cm FINDINGS: Limited by beam hardening artifact. LUNGS/PLEURA: Mild elevation of the right hemidiaphragm. A small bore left chest tube enters posteriorly between the left 9th and 10th ribs. Its [place] loop lies at the medial aspect of the left costophrenic angle. The catheter appears kinked at its skin insertion site (image 32, sagittal series 7). Small to moderate amount of right pleural fluid and small to moderate left hydropneumothorax. Mild associated bibasilar predominantly dependent airspace disease. No suspicious lung nodule identified. Patent central bronchi. MEDIASTINUM: Limited by anasarca and lack of intravenous contrast. No evidence of adenopathy by size criteria. Normal-appearing thyroid. Heart upper normal in size to mildly enlarged. Decreased blood pool density, suggesting anemia. No pericardial effusion. CORONARY ARTERY CALCIFICATION: Moderate. CHEST WALL/AXILLA: Anasarca. Small amount of subcutaneous gas in the right subclavian region. Mild bilateral gynecomastia. No lymphadenopathy by size criteria. Probable reactive bilateral axillary nodes. UPPER ABDOMEN: Unremarkable. OSSEOUS STRUCTURES: Old, healed fractures of the right eighth and ninth ribs laterally. CT/CT chest wo IV con IMPRESSION: A small bore left chest tube enters posteriorly between the left 9th and 10th ribs. Its [place] loop lies at the medial aspect of the left costophrenic angle. The catheter appears kinked at its skin insertion site. Recommend clinical correlation. Small to moderate amount of right pleural fluid and small to moderate left hydropneumothorax. Mild associated bibasilar predominantly dependent airspace disease. Anasarca. Anemia. Additional findings as above. Electronically signed by: Uday Solares MD 10/08/2024 09:52 AM EST RP Dictated By: Uday Solares Signed By: <Electronically signed by Uday Solares in OV> 10/08/24 0952 DD/ 1617 TD/TT: 10/06/24 1702 Skiing Teacher: [facility] External Provider IMG CT PROCEDURES Edited Result - Final * IR CVC REMOVE TUNNEL W PRT/CAR RENTAL MANAGER (10/06/2024 3:00 PM EST) Anatomical Region Laterality Modality X-Ray Angiograph y 10/06/2024 3:00 PM EST Narrative 10/21/2024 2:54 PM EST ? [facility] ?[address] ?[place] [address] ?Interventional Radiology Rpt ? Signed ? Patient: Deandre Luong ?MR#: [id number] ?? 3 ? : 1980 ?Acct:[id number] ? Age/Sex: 44 / M ?ADM Date: 10/04/24 ? Loc: HO.S3 ?359-1 ? Attending Dr: Harley Cooper MD ? Ordering Physician: Gurjit Palomo ?? Date of Service: 10/06/24 ?? Procedure(s): IR cvc remove tunnel w prt/silicator ?? Accession Number(s): [id number] ? cc: Cristina Stover MD; Gurjit Palomo ? Permacath removal ? Patient presents with a tunneled dialysis catheter. ?? Patient has bacteremia. Referring physician requests removal. ? The right chest was prepped and draped in routine sterile fashion. 1% ?? lidocaine was used for local anesthesia. Using blunt dissection, the ?? tunneled dialysis catheter was removed from the chest wall without ?? complication. After hemostasis was obtained, a dry sterile dressing was ?? applied. Patient tolerated the procedure well. The tip was sent for ?? culture. ? IR/IR cvc remove tunnel w prt/silicator ?? Impression: Permacath removal ? This procedure was performed by Gurjit Palomo PA-C and supervised by ?? Petros ? Electronically signed by: ??Michael Morrell MD ??10/21/2024 02:51 PM EST RP ? Dictated By: ?Gurjit Palomo ? Signed By: ?<Electronically signed by Gurjit Palomo in OV> ? 10/21/24 1451 ?<Electronically signed by Michael Morrell MD in OV> ? 10/21/24 1454 ? DD/ 1500 ? TD/TT: 10/06/24 1652 ? Skiing Teacher: ? Procedure Note Donemerita, Jaelyn - 10/21/2024 [place] [address] Interventional Radiology Rpt Signed Patient: Deandre uLong MMR#: [id number] 3 : 1980Acct:[id number] Age/Sex: 44 / MADM Date: 10/04/24 Loc: .S3 359-[address]: Harley Cooper MD Ordering Physician: Gurjit Palomo Date of Service: 10/06/24 Procedure(s): IR cvc remove tunnel w prt/silicator Accession Number(s): [id number] cc: Cristina Stover MD; Gurjit Palomo Permacath removal Patient presents with a tunneled dialysis catheter. Patient has bacteremia. Referring physician requests removal. The right chest was prepped and draped in routine sterile fashion. 1% lidocaine was used for local anesthesia. Using blunt dissection, the tunneled dialysis catheter was removed from the chest wall without complication. After hemostasis was obtained, a dry sterile dressing was applied. Patient tolerated the procedure well. The tip was sent for culture. IR/IR cvc remove tunnel w prt/silicator Impression: Permacath removal This procedure was performed by Gurjit Palomo PA-C and supervised by Dr. Morrell Electronically signed by: Michael Morrell MD 10/21/2024 02:51 PM [facility] Dictated By: Gurjit Palomo Signed By: <Electronically signed by Gurjit Palomo in OV> 10/21/24 1451 <Electronically signed by Michael Morrell MD in OV> 10/21/24 1454 DD/ 1500 TD/TT: 10/06/24 1652 Skiing Teacher: us [facility] External Provider IMG IR PROCEDURES Final Result * US DRAIN THORACENTESIS W IMAGE (10/05/2024 9:00 AM EST) Anatomical Region Laterality Modality Abdomen Ultrasound 10/05/2024 9:00 AM EST Narrative 10/07/2024 1:00 PM EST ? [facility] [facility] ?[place] [address] ? Ultrasound Report ? Signed ? Patient: Deandre Luong M ?MR#: [id number] ?? 3 ? : 1980 ?Acct:[id number] ? Age/Sex: 44 / M ?ADM Date: 10/04/24 ? Loc: HO.IMC ?443-1 ? Attending Dr: Harley Cooper MD ? Ordering Physician: Harley Cooper MD ?? Date of Service: 10/05/24 ?? Procedure(s): US drain thoracentesis w image ?? Accession Number(s): [id number] ? cc: Cristina Stover MD; Harley Cooper MD ? PROCEDURE: ?? Ultrasound-guided chest tube placement ? HISTORY: ?? Left loculated pleural effusion ? SPECIMEN: ?? A specimen was appropriately labeled and sent to the laboratory as ?? requested ? ACCESS: ?? 5 fr MysteryDeh needle/catheter ? MEDICATIONS: ?? 10 mL 1% lidocaine ? TECHNIQUE/FINDINGS ?? Appropriate preprocedural clinical history and imaging studies were ?? reviewed. The patient was brought to the department and placed in the ?? right lateral decubitus position. ? Ultrasound images of the left thorax were obtained to localize a large ?? loculated pleural effusion. Permanent ultrasound images were saved. ? The risks and benefits and possible complications were discussed with ?? the patient and consent form was signed. An area of the patient's left ?? back was prepped and draped in the usual sterile fashion. 10 mL of 1% ?? lidocaine was used to obtain local anesthesia of the skin and deeper ?? tissues. A 25 gauge hypodermic needle was introduced to sample pleural ?? fluid and demonstrate a safe access route. A 5 Chinese Giftbar catheter was ?? then used to access the pleural cavity. A 0.035 guidewire was then ?? placed through the catheter and into the chest. The access site was ?? then dilated. A 12 fr locking catheter was then advanced over the wire ?? and into the left pleural space. The wire was removed and the catheter ?? was secured to the skin with a single suture and a sterile dressing was ?? applied over the site. The catheter was then connected to a closed ?? chest drainage system. ? The patient tolerated the procedure well. There were no immediate ?? complications ? US/US drain thoracentesis w image ?? Impression: Ultrasound-guided left chest tube placement yielding constantino ?? fluid. ? This procedures performed by Gurjit Palomo PA-C and supervised by ?? Petros. ? Electronically signed by: ??Michael Morrell MD ??10/07/2024 12:57 PM EST RP ? Dictated By: ?Gurjit Palomo ? Signed By: ?<Electronically signed by Gurjit Palomo in OV> ? 10/07/24 1257 ?<Electronically signed by Michael Morrell MD in OV> ? 10/07/24 1259 ? DD/ 0900 ? TD/TT: 10/05/24 1000 ? Skiing Teacher: ? Procedure Note Jaelyn Juárez - 10/07/2024 [place] [address] Ultrasound Report Signed Patient: Deandre Luong [facility]#: [id number] 3 : 1980Acct:[id number] Age/Sex: 44 / MADM Date: 10/04/24 Loc: [place] [place]: Halrey Cooper MD Ordering Physician: Harley Cooper MD Date of Service: 10/05/24 Procedure(s): US drain thoracentesis w image Accession Number(s): [id number] cc: Cristina Stover MD; Harley Cooper MD PROCEDURE: Ultrasound-guided chest tube placement HISTORY: Left loculated pleural effusion SPECIMEN: A specimen was appropriately labeled and sent to the laboratory as requested ACCESS: 5 fr Yueh needle/catheter MEDICATIONS: 10 mL 1% lidocaine TECHNIQUE/FINDINGS Appropriate preprocedural clinical history and imaging studies were reviewed. The patient was brought to the department and placed in the right lateral decubitus position. Ultrasound images of the left thorax were obtained to localize a large loculated pleural effusion. Permanent ultrasound images were saved. The risks and benefits and possible complications were discussed with the patient and consent form was signed. An area of the patient's left back was prepped and draped in the usual sterile fashion. 10 mL of 1% lidocaine was used to obtain local anesthesia of the skin and deeper tissues. A 25 gauge hypodermic needle was introduced to sample pleural fluid and demonstrate a safe access route. A 5 Chinese Yueh catheter was then used to access the pleural cavity. A 0.035 guidewire was then placed through the catheter and into the chest. The access site was then dilated. A 12 fr locking catheter was then advanced over the wire and into the left pleural space. The wire was removed and the catheter was secured to the skin with a single suture and a sterile dressing was applied over the site. The catheter was then connected to a closed chest drainage system. The patient tolerated the procedure well. There were no immediate complications US/US drain thoracentesis w image Impression: Ultrasound-guided left chest tube placement yielding constantino fluid. This procedures performed by Gurjit Palomo PA-C and supervised by Dr. Morrell. Electronically signed by: Michael Morrell MD 10/07/2024 12:57 PM EST Dictated By: Gurjit Palomo Signed By: <Electronically signed by Gurjit Palomo in OV> 10/07/24 1257 <Electronically signed by Michael Morrell MD in OV> 10/07/24 1259 DD/ 0900 TD/TT: 10/05/24 1000 Skiing Teacher: [facility] External Provider IMG US PROCEDURES Edited Result - Final * (ABNORMAL) VENOUS BLOOD GAS (09/28/2024 7:54 AM EST) Only the most recent of2 resultswithin the time period is included. VBG pH 7.34 7.32 - 7.43 [facility] Comment:METER #: [id number] additional_comment: Cb omorun VBG PCO2 61 mmHg [facility] Comment:METER #: [id number] additional_comment: Cb omorun VBG PO2 152 mmHg [facility] Comment:METER #: [id number] additional_comment: Cb omorun VBG Base Excess 6.4 mmol/L [facility] Comment:METER #: [id number] additional_comment: Cb omorun VBG HCO3 33(H) 22 - 26 mmol/L [facility] Comment:METER #: [id number] additional_comment: Cb omorun O2 Sat, Homar TNP % [facility] 09/28/2024 7:54 AM EST 09/28/2024 8:42 AM EST us Generic External Data Provider LAB BLOOD ORDERAB LES Final Result Performing Organization Address [facility]/State/[facility] Co de Phone Number [facility] [address] [place] [address] [phone] * US Scrotum (09/21/2024 4:29 PM EST) Anatomical Region Laterality Modality Body Ultrasound 09/21/2024 4:29 PM EST Narrative 09/21/2024 7:03 PM EST ? [facility] ?[address] ?[place] [address] ? Ultrasound Report ? Signed ? Patient: Luong,Fazal ?MR#: [id number] ?? 3 ? : 1980 ?Acct:[id number] ? Age/Sex: 44 / M ?ADM Date: 11/19/24 ? Loc: HO.ICU ?252-1 ? Attending : Mike South MD ? Ordering Physician: Mike South MD ?? Date of Service: 09/21/24 ?? Procedure(s): US scrotum ?? Accession Number(s): [id number] ? cc: Mike South MD; Cristina Stover MD ? EXAMINATION: ?? US SCROTUM ? CLINICAL INFORMATION: ?? 44-year-old male with hydrocele. ? COMPARISON: ?? None available. ? TECHNIQUE: ?? A sonogram of the scrotum was performed assessing palm-scale appearance ?? and color Doppler flow. Spectral Doppler analysis of the arterial and ?? venous flow were performed in the testes bilaterally. ? FINDINGS: ? RIGHT: Right testicle measures 3.6 x 2.0 x 2.0 cm, volume 7.5 mL. No ?? focal testicular parenchymal lesions are visualized is minimal scrotal ?? microlithiasis. Spectral Doppler analysis of the arterial and venous ?? flow is normal in the right testis. ? Right epididymal head is normal in size. There is mild hydrocele on the ?? right Right epididymal Doppler flow is normal. ? LEFT: Left testicle measures 3.4 x 1.9 x 2.6 cm, volume 8.8 mL. No ?? focal testicular parenchymal lesions are visualized, with minimal ?? microlithiasis. Spectral Doppler analysis of the arterial and venous ?? flow is normal in the left testis. ? Left epididymal head is normal in size. No left hydrocele or varicocele ?? is seen. Left epididymal Doppler flow is normal. ?? There is edematous wall of the scrotum ? US/US scrotum ?? IMPRESSION: ?? Mild hydrocele on the right, ?? Scrotal thickening ?? Mild microlithiasis bilaterally ? Electronically signed by: ??Elisabeth Rooney MD ??09/21/2024 06:59 PM EST RP ? Dictated By: ?Elisabeth Rooney MD ? Signed By: ?<Electronically signed by Elisabeth Rooney MD in OV> ? 09/21/24 1859 ? DD/ 1629 ? TD/TT: 09/21/24 1639 ? Skiing Teacher: ? Procedure Note Jaelyn Juárez - 09/21/[address] [address] Ultrasound Report Signed Patient: Deandre Luong [facility]#: [id number] 3 : 1980Acct:[id number] Age/Sex: 44 / MADM Date: 09/21/24 Loc: HO.ICU 252-[address]: Mike South MD Ordering Physician: Mike South MD Date of Service: 09/21/24 Procedure(s): US scrotum Accession Number(s): [id number] cc: Mike South MD; Cristina Stover MD EXAMINATION: US SCROTUM CLINICAL INFORMATION: 44-year-old male with hydrocele. COMPARISON: None available. TECHNIQUE: A sonogram of the scrotum was performed assessing palm-scale appearance and color Doppler flow. Spectral Doppler analysis of the arterial and venous flow were performed in the testes bilaterally. FINDINGS: RIGHT: Right testicle measures 3.6 x 2.0 x 2.0 cm, volume 7.5 mL. No focal testicular parenchymal lesions are visualized is minimal scrotal microlithiasis. Spectral Doppler analysis of the arterial and venous flow is normal in the right testis. Right epididymal head is normal in size. There is mild hydrocele on the right Right epididymal Doppler flow is normal. LEFT: Left testicle measures 3.4 x 1.9 x 2.6 cm, volume 8.8 mL. No focal testicular parenchymal lesions are visualized, with minimal microlithiasis. Spectral Doppler analysis of the arterial and venous flow is normal in the left testis. Left epididymal head is normal in size. No left hydrocele or varicocele is seen. Left epididymal Doppler flow is normal. There is edematous wall of the scrotum US/US scrotum IMPRESSION: Mild hydrocele on the right, Scrotal thickening Mild microlithiasis bilaterally Electronically signed by: Elisabeth Rooney MD 09/21/2024 06:59 PM EST Dictated By: Elisabeth Rooney MD Signed By: <Electronically signed by Elisabeth Rooney MD in OV> 09/21/24 1859 DD/ 1629 TD/TT: 09/21/24 1639 Skiing Teacher: [facility] External Provider IMG US PROCEDURES Final Result * (ABNORMAL) Glucose, Whole Blood (09/21/2024 7:09 AM EST) Glucose, Whole Blood 206(H) 60 - 115 mg/dL [facility] Comment:METER #: [id number] 09/21/2024 7:09 AM EST 09/21/2024 7:15 AM EST Generic External Data Provider LAB BLOOD ORDERAB LES Final Result Performing Organization Address [facility]/ZIP Co de Phone Number [facility] [address] [place] [phone] * SARS-CoV-2 RNA, Influenza A/B, and RSV RNA, Ql NAAT (09/21/2024 1:18 AM EST) Influenza A PCR NEGATIVE Negative [facility] Influenza B PCR NEGATIVE Negative [facility] Resp Syncy Virus RNA Qual PCR NEGATIVE Negative [facility] SARS COV2 PCR NEGATIVE Negative [facility] Comment:All test results mus t be correlated with clinical findings.Negative results do not preclude SARS-CoV2, influenza Avirus, influenza B virus and/or RSV infectionand should not be used as the sole basis for treatment orother patient management decisions. Negative results must becombined with clinical observations, patient history, andepidemiological information.This test has not been evaluated for monitoring treatment ofinfection.This test has been authorized by the FDA under an EmergencyUse Authorization (EUA) for use by authorized laboratories.Testing performed on the [employer] GeneXpert utilizingreal-time RT-PCR.All SARS CoV2 and positive influenza A/B results arereported to [facility]. 09/21/2024 1:18 AM EST 09/21/2024 1:21 AM EST us Generic External Data Provider LAB MICROBIOLOGY - GENERAL ORDERABLES Final Result Performing Organization Address [facility]/ZIP Co de Phone Number [facility] [address] [place] [phone] Lactic Acid (09/21/2024 12:22 AM EST) Lactic Acid 1.1 0.5 - 2.0 mmol/L [facility] 09/21/2024 12:2 2 AM EST 09/21/2024 12:27 AM EST us Generic External Data Provider LAB BLOOD ORDERAB LES Final Result [facility] [address] [place] [address] [phone] * (ABNORMAL) CBC auto differential (09/20/2024 11:30 PM EST) White Blood Count 13.6(H) 4.8 - 10.8 X10*3/uL [facility] Red Blood Count 2.87(L) 4.60 - 5.80 X10*6/uL [facility] Hemoglobin 8.3(L) 14.0 - 18.0 g/dl [facility] Hematocrit 26.8(L) 42.0 - 52.0 % [facility] Mean Corpuscular Volume 93.4 80.0 - 98.0 fL [facility] Mean Corpuscular Hemoglobin 28.9 27.0 - 33.0 pg [facility] Mean Corpuscular HGB Conc 31.0 31.0 - 36.0 g/dl [facility] Red Cell Distribution Width 15.9 11.0 - 16.0 % [facility] Platelet Count 430(H) 160 - 400 X10*3/uL [facility] Mean Platelet Volume 10.3 9.4 - 12.4 fL [facility] Neutrophils Percent Auto 88.6(H) 45 - 73 % [facility] Imm Gran Pct Auto 0.7(H) 0.0 - 0.4 % [facility] Lymphocytes Percent Auto 4.3(L) 20 - 40 % [facility] Monocytes Percent Auto 6.3 2 - 11 % [facility] Eosinophils Percent Auto 0.0 0 - 4 % [facility] Basophils Percent Auto 0.1 0 - 2 % [facility] NRBC Pct Auto 0.0 0.0 - 0.2 /100WBC [facility] Neutrophils Absolute Auto 12.0(H) 2.0 - 8.3 x10*3/uL [facility] Imm Gran Abs Auto 0.09(H) 0.00 - 0.03 X10*3/uL [facility] Lymphocytes Absolute Auto 0.6(L) 1.2 - 4.9 X10*3/uL [facility] Monocytes Absolute Auto 0.9 0.1 - 1.2 X10*3/uL [facility] Eosinophils Absolute Auto 0.0 0.0 - 0.4 X10*3/uL [facility] Basophils Absolute Auto 0.0 0.0 - 0.2 X10*3/uL [facility] NRBC Abs Auto 0.000 0.0 - 0.012 X10*3/uL [facility] 09/20/2024 11:3 0 PM EST 09/20/2024 11:33 PM EST Generic External Data Provider LAB BLOOD ORDERAB LES Final Result Performing Organization Address [facility] Co de Phone Number [facility] [address] [place] [phone] * (ABNORMAL) B Type Natriuretic Peptide (BNP) (09/20/2024 11:30 PM EST) B Type Natriuretic Peptide 1,613(H) <100 pg/mL [facility] Comment:For those patients w ho are being treated with Natrecor(nesiritide, recombinant BNP), BNP testing should beperformed at least two hours post treatment in order toensure that only endogenous levels of BNP are detected. 09/20/2024 11:3 0 PM EST 09/20/2024 11:33 PM EST us Generic External Data Provider LAB BLOOD ORDERAB LES Final Result Performing Organization Address [facility] Co de Phone Number [facility] [address] [place] [phone] * (ABNORMAL) Comprehensive Metabolic Panel (09/20/2024 11:30 PM EST) Sodium 128(L) 135 - 145 mmol/L [facility] Potassium 4.7 3.3 - 5.1 mmol/L [facility] Chloride 97 96 - 108 mmol/L [facility] Carbon Dioxide 23 22 - 29 mmol/L [facility] Anion Gap 13 12 - 20 [facility] Urea Nitrogen (BUN) 48(H) 9 - 16 mg/dL [facility] Creatinine, Serum 4.09(HH) 0.5 - 1.4 mg/dL [facility] Comment:Critical value for t est(s): CREATININE Results called toand read back by: ADA Person calling:Sina:09/20/24 Time:2356 Creatinine Clr Calc Pharmacy 22.5 [facility] Comment:eGFR (calculated fro m the MDRD study equation) and eCrCl(calculated from the Cockcroft-Gault equation) are based ondifferent parameters and may not yield comparable results.If eCrCl result is absurd, please check patient'sheight/weight. Estimated Glomerular Filt Rate 16 [facility] Comment:Chronic Kidney Disea se: Estimated GFR < 60 mL/min/1.67k7Cpsvcr Kidney Disease: Estimated GFR < 15 mL/min/1.73m2 Glucose 373(HH) 60 - 115 mg/dL [facility] Comment:Critical value for t est(s): GLUCOSE Results called to andread back by:ADA Person calling: Sina:09/20/24 Time:2356 Calcium 7.9(L) 8.4 - 10.2 mg/dL [facility] Bilirubin, Total 0.3 0.0 - 1.0 mg/dL [facility] Aspartate Amino Transferase 26 5 - 37 U/L [facility] Alanine Aminotransferase 10 0 - 40 U/L [facility] Total Protein 7.1 6.5 - 8.0 g/dL [facility] Albumin Level 2.5(L) 3.5 - 5.0 g/dL [facility] Alkaline Phosphatase 221(H) 39 - 117 U/L [facility] 09/20/2024 11:3 0 PM EST 09/20/2024 11:33 PM EST us Generic External Data Provider LAB BLOOD ORDERAB LES Final Result [facility] [address] [place] [phone] * (ABNORMAL) POCT A1C (07/14/2023 1:40 PM EDT) Hemoglobin A1C 11.1(A) 4.0 - 6.0 % QC Media Lot # Lot# Expiration Date Blood 07/14/2023 1:40 PM EDT us Awilda Walters MD POINT OF CARE TEST ENTER /EDIT ORDERABLES Final Result * MICROALBUMIN, RANDOM (12/13/2019 1:40 PM EST) CREATININE, RANDOM URINE 32.74 MG/DL [facility] MICALB/CRE RATIO RANDOM URINE 2736.7 ug/mg cr [facility] Comment: ?Albumin/Creatinine Ratio Reference Ranges: ? Normal: < 30 ug/mg creatinine ? Microalbuminuria: ??30 - 300 ug/mg creatinine Clinical Albuminuria: ??> 300 ug/mg creatinine MICROALBUMIN, RANDOM URINE 896.0 MG/L [facility] 12/13/2019 1:40 PM EST us Rick Hurd MD HISTORICAL/NON ORDERABLE LABS Final Result [facility] [address] * HM Hepatitis C Antibody (06/22/2019) Hepatitis C Antibody Nonreactive Blood us Historical Provider HEALTH MAINTENANCE Final Result * HM HIV 1/2 Antigen and Antibody (06/22/2019) HIV Ag/Ab Nonreactive us Historical Provider HEALTH MAINTENANCE Final Result from Last 3 Months or Most Recently Relevant to Health Maintenance Insurance [employer] Care Teams Jack Tamp Operator Relationship Specialty Start Date End Date [place], [place] Cristina [address] [place] [phone] PCP - General Family Medicine 11/29/24
--- OUTSIDE RECORDS SUMMARY | 2024-12-17 19:49 | XMS_ITS | Encounter Summary ---
Author Organization [employer] Address [address] [facility] 7 [place] [address] Care Team Providers Care Motor Checker Name Role Phone Cristina Stover MD Primary Care Provider [phone]- [phone] Reason for Visit * Reason Comments Transition Of Care (Tcm) HDF unscheduled Encounter Details Date Type Department Care Team ([facility] st Contact Info) Description 12/08/2024 Patient Outreach [facility] [address] [place] [address] Cristina Stover MD [address] [place] [address] Transition Of Care (Tcm) (HDF unscheduled) Social [...] * Significant Event - Vesna Guardado - 12/08/2024 8:29 AM EST 12/08/24827 Hospital Discharges and Admission for [facility] Type of Visit Hospital Admission Date of Admission/Visit 10/26/24 Date of Discharge 12/07/24 Facility [facility] Diagnosis atrial fib Disposition Discharged Home Follow-Up Actions Follow-Up Needed Provider appointment Follow-Up Outcome Left Voicemail Initial Contact Date 12/08/24 CC Vesna placed outbound call to patient for HDF outreach. CC placing call to offer patient with an HDF appointment with provider. No answer at this time. Patient's name and were not confirmed. CC left detailed message educating patient on importance of following up with provider following an inpatient admission. Provided contact information requesting a call back in order to schedule the HDF appointment. Patient educated via voicemail on extended clinic hours on Mondays and Wednesdays, and Walk-In Urgent Care Located in [facility] of [facility]. Patient provided with after-hours line for [facility], , which offer night time triage service and option to transfer to personal lines insurance agent provider if needed. CC will request Discharge summaries to scan into chart. CC will place additional outreach call within 2-5 business days. documented in this encounter Plan of Treatment Not on file documented as of this encounter Visit Diagnoses Not on filedocumented in this encounter Care Teams Motor Checker Relationship Specialty Start Date End Date Cristina Stover MD [address] [place] [phone] PCP - General Family Medicine 11/29/24 documented as of this encounter
--- OUTSIDE RECORDS SUMMARY | 2024-12-17 19:49 | XMS_ITS | Encounter Summary ---
Author Organization [employer] Address [address] [facility] [address]t [place] [address] Care Team Providers Care Counter Professional Name Role Phone Cristina Stover MD Primary Care Provider +1- [phone] Reason for Visit * Reason Onset Date Comments FYI. 12/09/2024 Encounter Details Date Type Department Care Team (Late st Contact Info) Description 12/09/2024 Telephone [facility] MEDICINE [address] [place], [place] [phone] Cristina Stover MD [address] [place], [place] [phone] FYI. Social History Tobacco Use Types Packs/Day Years [...] encounter Miscellaneous Notes * Telephone Encounter - Carissa Reddy RN - 12/09/2024 1:40 PM EST Noted * Telephone Encounter - Jed Duran - 12/09/2024 12:37 PM EST Tc from Jakub from [facility] stating that they tried to reach out to pt but could not reach himat the moment. Will try again tomorrow. Jakub ([facility]): [phone] documented in this encounter Plan of Treatment Not on file documented as of this encounter Visit Diagnoses Not on filedocumented in this encounter Care Teams Counter Professional Relationship Specialty Start Date End Date Cristina Stover MD [address] [place] [phone] PCP - General Family Medicine 11/29/24 documented as of this encounter
--- OUTSIDE RECORDS SUMMARY | 2024-12-17 19:49 | XMS_ITS | Encounter Summary ---
Author Organization [employer] Address [address] [facility] 7 [place] [address] Care Team Providers Care Occupational Therapy Professor Name Role Phone Cristina Stover MD Primary Care Provider +1- [phone] Reason for Visit * Reason Comments Care Coordination CM/CHW outreach Encounter Details Date Type Department Care Team (Latest Contact Info) Description 12/07/2024 Patient Outreach [facility] [address] [place], [place] [phone] Cristina Stover MD [address] [place] [address] Care Coordination (CM/CHW outreach) Social History Tobacco [...] encounter Progress Notes * Debby Bennett - 12/07/2024 1:51 PM EST CHW Debby Bennett called patient to [...] on filedocumented in this encounter Care Teams Occupational Therapy Professor Relationship Specialty Start Date End Date Cristina Stover MD [address] [place] [phone] PCP - General Family Medicine 11/29/24 documented as of this encounter
--- OUTSIDE RECORDS SUMMARY | 2024-12-17 19:49 | XMS_ITS | Encounter Summary ---
Author Organization [employer] Address [address] [place] [address] Care Team Providers Care Animal Biologist Name Role Phone Cristina Stover MD Primary Care Provider +1- [phone] Cristina Stover MD Primary Care Provider +1- [phone] Cristina Stover MD Primary Care Provider +1- [phone] Reason for Visit * Reason Onset Date Comments PT1 05/30/2023 Encounter Details Date Type Department Care Team ([facility] st Contact Info) Description 05/30/2023 Telephone [facility] MEDICINE [address] [place] [address] [phone] Cristina Stover MD [address] [place] [address] [phone] PT1 Social History Tobacco Use Types Packs/Day Years Used Date Smoking Tobacco: Never Assessed Sex and Gender Information Value Date Recorded Sex Assigned at Male 09/02/2022 10:14 AM EDT Legal Sex Male 10:14 AM EDT Gender Identity Male 09/02/2022 10:14 AM EDT Sexual Orientation Straight 09/02/2022 10 :14 AM EDT documented as of this encounter Miscellaneous Notes * Telephone Encounter - Toshia Hernandez - 05/30/2023 1:54 PM EDT Tc from pt requesting a PT1 Date: 06/02/23 Time: 9 am address: [address] [place] [address] specialty: hospital f/u # visits: loans officer: n/a Wheelchair: yes documented in this encounter Plan of Treatment Not on file documented as of this encounter Visit Diagnoses Not on filedocumented in this encounter Care Teams Animal Biologist Relationship Specialty Start Date End Date Cristina Stover MD [address] [place] [address] PCP - General Family Medicine 05/20/14 12/30/23 Cristina Stover MD [address] [place] [address] PCP - General Family Medicine 01/06/24 08/29/24 Cristina Stover MD [address] [place] [address] PCP - General Family Medicine 11/29/24 documented as of this encounter
--- OUTSIDE RECORDS SUMMARY | 2024-12-17 19:49 | XMS_ITS | Encounter Summary ---
Author Organization [email or web address] Address [address] [facility] [address] [place] [address] Care Team Providers Care Chrome Plater Name Role Phone Unavailable Primary Care Provider Unavailabl e Reason for Visit * Reason Comments Transition Of Care (Tcm) HDF unscheduled LVM Encounter Details Date Type Department Care Team (Late st Contact Info) Description 11/26/2024 Patient Outreach [facility] MEDICINE [address] [place] [address] Kyle Mitchell MD [address] [place] [address] Transition Of Care (Tcm) (HDF unscheduled LVM ) Social History Tobacco Use Types Packs/Day Years [...] encounter Miscellaneous Notes * Significant Event - Kelsey Pearce - 11/26/2024 9:40 AM EST 11/26/24 0935 Hospital Discharges and Admission for [facility] Type of Visit Hospital Admission Date of Admission/Visit 11/05/24 Date of Discharge 11/25/24 Facility [facility] Diagnosis Anemia in chronic kidney disease (CKD) Disposition Discharged with Home Care Services Follow-Up Actions Follow-Up Needed Provider appointment Follow-Up Outcome Left Voicemail Initial Contact Date 11/26/24 CC Kelsey Wooten placed outbound call to patient for HDF outreach. CC placing call to offer patient with an HDF appointment with provider. No answer at this time. Patient's name and were not confirmed. CC left detailed message educating patient on importance of following up with provider following an inpatient admission. Provided contact information requesting a call back in order to schedule theHDF appointment. Patient educated via voicemail on extended clinic hours on Mondays and Wednesdays,and Walk-In Urgent Care Located in [facility]. Patient provided with after-hours line for [facility], , which offer night time triage service and option to transfer to dealer relationship manager provider if needed. CC scanned discharge summary into patient's chart. CC will place additional outreach call within2-5 business days. documented in this encounter Plan of Treatment Not on file documented as of this encounter Visit Diagnoses Not on filedocumented in this encounter
--- OUTSIDE RECORDS SUMMARY | 2024-12-17 19:49 | XMS_ITS | Encounter Summary ---
Author Organization [employer] Address [address] [facility] [address] [place] [address] Care Team Providers Care Quantitative Strategy Analyst Name Role Phone Cristina Stover MD Primary Care Provider +1- [phone] Reason for Visit * Reason Onset Date Comments FYI 12/08/2024 Encounter Details Date Type Department Care Team (Late st Contact Info) Description 12/08/2024 Telephone [facility] MEDICINE [address] [place], [place] [phone] Cristina Stover MD [address] [place], [place] [phone] FYI Social History Tobacco Use Types Packs/Day Years [...] encounter Miscellaneous Notes * Telephone Encounter - Riri Moran RN - 12/08/2024 12:21 PM EST Noted * Telephone Encounter - Morgan Cooney - 12/08/2024 12:12 PM EST [facility] pt today to start [facility]NA services but they were un able to get a hold of him so they will retry tomorrow 12/09. IF any questions contact [facility] at [phone] documented in this encounter Plan of Treatment Not on file documented as of this encounter Visit Diagnoses Not on filedocumented in this encounter Care Teams Quantitative Strategy Analyst Relationship Specialty Start Date End Date Cristina Stover MD [address] [place] [address] PCP - General Family Medicine 11/29/24 documented as of this encounter
--- OUTSIDE RECORDS SUMMARY | 2024-12-17 19:49 | XMS_ITS | Encounter Summary ---
Author Organization [employer] Address [address] [facility] [address] [place] [address] Care Team Providers Care Objects Conservator Name Role Phone Cristina Stover MD Primary Care Provider +1- [phone] Cristina Stover MD Primary Care Provider +1- [phone] Cristina Stover MD Primary Care Provider +1- [phone] Encounter Details Date Type Department Care Team (Late st Contact Info) Description 10/17/2023 Telephone [facility] MEDICINE [address] [place], [place] [phone] Cristina Stover MD [address] [place], [place] [phone] Social History Tobacco Use Types Packs/Day Years [...] Telephone Encounter - Rhianna Daniel RN - 10/17/2023 3:14 PM EST Telephone call placed to patient in regards to message below. No answer, left voicemail. Patient tocall as needed. * Telephone Encounter - Mireya Collado - 10/17/2023 2:48 PM EST TC from mom of pt requesting a Electric wheel chair. Also mom of pt requesting Phone number of [facility] wheel chair clinic. PCP DR. Stover documented in this encounter Plan of Treatment Not on file documented as of this encounter Visit Diagnoses Not on filedocumented in this encounter Care Teams Objects Conservator Relationship Specialty Start Date End Date Cristina Stover MD [address] [place] [address] PCP - General Family Medicine 05/20/14 12/30/23 Cristina Stover MD [address] [place] [address] PCP - General Family Medicine 01/06/24 08/29/24 Cristina Stover MD [address] [place] [address] PCP - General Family Medicine 11/29/24 documented as of this encounter
--- OUTSIDE RECORDS SUMMARY | 2024-12-17 19:49 | XMS_ITS | Encounter Summary ---
Author Organization [employer] Address [address] [facility] 7t [place] [address] Care Team Providers Care Front Desk Administrator Name Role Phone Cristina Stover MD Primary Care Provider +1- [phone] Reason for Visit * Reason Onset Date Comments FYI 11/30/2024 Encounter Details Date Type Department Care Team (Late st Contact Info) Description 11/30/2024 Telephone [facility] MEDICINE [address] [place], [place] [phone] Cristina Stover MD [address] [place], [place] [phone] FYI Social History Tobacco Use Types Packs/Day [...] Telephone Encounter - Carissa Reddy RN - 11/30/2024 12:38 PM EST Noted * Telephone Encounter - Danielle Ramirez - 11/30/2024 12:18 PM EST Tc from [facility] calling to inform provider pt was referred for services but facility has not been able to locate pt to begin services. If any questions contact [facility] at [phone] documented in this encounter Plan of Treatment Not on file documented as of this encounter Visit Diagnoses Not on filedocumented in this encounter Care Teams Front Desk Administrator Relationship Specialty Start Date End Date Cristina Stover MD [address] [place] [address] PCP - General Family Medicine 11/29/24 documented as of this encounter
--- OUTSIDE RECORDS SUMMARY | 2024-12-17 19:49 | XMS_ITS | Encounter Summary ---
Author Organization [employer] Address [address] [place] [address] [address] [place] [address] Care Team Providers Care Resizer Operator Name Role Phone Cristina Stover MD Primary Care Provider +1- [phone] Cristina Stover MD Primary Care Provider +1- [phone] Cristina Stover MD Primary Care Provider +1- [phone] Encounter Details Date Type Department Care Team (Late st Contact Info) Description 03/20/2023 Orders Only [facility] MED & PEDS [address] [place], [place] [phone] Nay Benitez LPN Social History Tobacco Use [...] on filedocumented in this encounter Care Teams Resizer Operator Relationship Specialty Start Date End Date Cristina Stover MD [address] [place] [address] PCP - General Family Medicine 05/20/14 12/30/23 Cristina Stover MD [address] [place] [address] PCP - General Family Medicine 01/06/24 08/29/24 Cristina Stover MD [address] [place] [address] PCP - General Family Medicine 11/29/24 documented as of this encounter
--- OUTSIDE RECORDS SUMMARY | 2024-12-17 19:49 | XMS_ITS | Encounter Summary ---
Author Organization [employer] Address [address] [facility] 7t [place] [address] Care Team Providers Care Accounting File Clerk Name Role Phone Cristina Stover MD Primary Care Provider +1- [phone] Reason for Visit * Reason Onset Date Comments Call Back Request 12/06/2024 Encounter Details Date Type Department Care Team ([facility] st Contact Info) Description 12/06/2024 Telephone [facility] MEDICINE [address] [place], [place] [phone] Cristina Stover MD [address] [place] [address] Call Back Request Social History Tobacco Use Types Packs/Day Years [...] Telephone Encounter - Riri Moran RN - 12/06/2024 3:08 PM EST TC placed to [facility] and LVM to call back the office. * Telephone Encounter - Lina Blair - 12/06/2024 10:49 AM EST Tc from [facility] requesting a call back as Jair informs pt denied services as he will like to denied services with provider as well. If any questions please call [facility] [phone] documented in this encounter Plan of Treatment Not on file documented as of this encounter Visit Diagnoses Not on filedocumented in this encounter Care Teams Accounting File Clerk Relationship Specialty Start Date End Date Cristina Stover MD [address] [place] [address] PCP - General Family Medicine 11/29/24 documented as of this encounter
--- OUTSIDE RECORDS SUMMARY | 2024-12-17 19:49 | XMS_ITS | Encounter Summary ---
Author Organization [facility] Address [address] [facility] [address] [place] [address] Phone Care Team Providers Care Arterial Embalmer Name Role Phone Cristina Stover MD Primary Care Provider Randall robledo Encounter Details Date Type Department Care Team (Late st Contact Info) Description 09/11/2023 Office Communication [facility] [address] [facility] [address] [place] [address] Rick Hurd MD [address] [facility] [address] [place] [address] Social History Tobacco Use Types [...] encounter Miscellaneous Notes * Telephone Encounter - Peyton Wang - 09/11/2023 2:56 PM EST Scheduled with the patient and reminder mailed. * Telephone Encounter - Rick Hurd MD - 09/11/2023 2:09 PM EST Needs appt in 3-4 wks with me documented in this encounter Plan of Treatment Not on file documented as of this encounter Visit Diagnoses Not on filedocumented in this encounter Care Teams Arterial Embalmer Relationship Specialty Start Date End Date Cristina Stover MD PCP - General 11/13/20 documented as of this encounter
[2024-12-17 19:52] LABS: Alanine Aminotransferase 11 U/L (0-40); Albumin Level 2.6 g/dL (3.5-5.0); Alkaline Phosphatase 187 U/L (39-117); Anion Gap 16 (12-20); Aspartate Amino Transferase 37 U/L (5-37); Bilirubin Total 0.4 mg/dL (0.0-1.0); Blood Urea Nitrogen 34 mg/dL (9-16); Calcium 8.9 mg/dL (8.4-10.2); Carbon Dioxide 28 mmol/L (22-29); Chloride 92 mmol/L (96-108); Estimated Glomerular Filt Rate 14; Glucose Random 251 mg/dL (60-115); Magnesium 2.3 mg/dL (1.6-2.6); Potassium 3.7 mmol/L (3.3-5.1); Sodium 132 mmol/L (135-145); Total Protein 8.7 g/dL (6.5-8.0)
--- NOTE | 2024-12-17 19:54 | ED_ITS ---
HPI - General Adult General Chief complaint: General Medical Stated complaint: missed dialysis,feels unwell Time Seen by Provider: 12/17/24 18:44 Source: patient Limitations: no limitations History of Present Illness ED Provider: Ninfa Cid PA-C HPI narrative: 44-year-old male with a history of ESRD on HD (MWF), essential hypertension, hyperlipidemia, PVD, s/p right BKA, type 2 diabetes mellitus opiate use disorder on Suboxone, with multiple decubitus ulcers of varying stages some with necrotic eschar, presents with weakness. Patient states he did not feel well today he missed his session of dialysis. Patient states he was recently admitted to [facility] due to infection associated with the his numerous decubitus ulcers. Denies recent cough or cold symptoms, no nausea vomiting diarrhea. Denies chest pain or shortness of breath, no orthopnea. Patient states he is fluid restricted to about 5 cups of fluid a day, he does produce minimal urine. Related Data Home Medications ?Medication ?Instructions ?Recorded ?Confirmed insulin lispro 100 unit/mL See Protocol subcut TIDAC 09/28/24 12/17/24 subcutaneous pen (Humalog KwikPen (U-100) Insulin) melatonin 5 mg tablet 5 mg PO BEDTIME PRN insomnia 09/28/24 12/17/24 insulin glargine 100 unit/mL (3 10 unit subcut BEDTIME 12/17/24 12/17/24 mL) subcutaneous pen sevelamer carbonate 800 mg tablet 1,600 mg PO TID 12/17/24 12/17/24 Previous Rx's ?Medication ?Instructions ?Recorded Dakins solution 1/4 strength #1 ea 09/25/24 amiodarone 200 mg tablet 200 mg PO DAILY #90 tabs 09/25/24 apixaban 5 mg tablet (Eliquis) 5 mg PO BID #180 tabs 09/25/24 atorvastatin 40 mg tablet 40 mg PO BEDTIME #30 tabs 09/25/24 calcitriol 0.25 mcg capsule 0.5 mcg (2 x 0.25 mcg) PO DAILY 09/25/24 #60 caps calcium acetate(phosphat bind) 667 1,334 mg (2 x 667 mg) PO TIDWM 09/25/24 mg capsule #120 caps multivitamin 1 tab PO DAILY #30 tabs 09/25/24 omeprazole 20 mg capsule,delayed 20 mg PO DAILY@0630 #30 caps 09/25/24 release pen needle, diabetic 32 gauge x #100 ea 09/25/2411/06 blood sugar diagnostic (FreeStyle #100 ea 09/29/24 Lite Strips) blood-glucose meter #1 ea 09/29/24 lancets 28 gauge (FreeStyle #100 ea 09/29/24 Lancets) metoprolol succinate 50 mg 50 mg PO DAILY #90 tabs 10/13/24 tablet,extended release 24 hr midodrine 5 mg tablet 5 mg PO BID #60 tabs 10/13/24 torsemide 20 mg tablet 80 mg PO BID #180 tabs 10/13/24 buprenorphine 8 mg-naloxone 2 mg 1 film sublingual TID #42 ea 11/25/24 sublingual film oxycodone 5 mg tablet 10 mg (2 x 5 mg) PO Q12H PRN Pain, 11/25/24 Moderate(Pain Scale 4-6) #20 tabs polyethylene glycol 3350 17 gram 17 g PO DAILY PRN Constipation 11/25/24 oral powder packet #120 ea Allergies Allergy/AdvReac Type Severity Reaction Status Date / Time No Known Allergies Allergy Verified 12/17/24 18:47 [No Known Allergies*] Review of Systems 2 Review of Systems: Yes all other systems are reviewed and are negative Constitutional: Constitutional: Reports fatigue, Denies fever(s) and Reports malaise Cardiovascular: Cardiovascular: Denies chest pain and Denies dyspnea Respiratory: Respiratory: Denies cough and Denies dyspnea Gastrointestinal: Gastrointestinal: Denies abdominal pain, Denies diarrhea, Denies nausea and Denies vomiting Integumentary/Breasts: Skin/Breast: Reports erythema, Reports skin ulcer and Reports wounds Endocrine: Endocrine: Reports fatigue [facility] Past Medical History Attestation statement: The following information was validated with the patient. Medical History Opioid use disorder, severe, dependence Bacteremia Volume overload Paroxysmal atrial flutter Cardiomyopathy Pericardial effusion Atrial flutter Need for acute hemodialysis Leukocytosis Anemia Anemia Transfusion history Atrial flutter, paroxysmal COPD (chronic obstructive pulmonary disease) Constipation Callus of foot Seizure Polysubstance abuse CKD (chronic kidney disease) stage 3, GFR 30-59 ml/min Foot osteomyelitis, left Amputation of toe of right foot Diabetic ulcer of right foot Hyperglycemia due to type 2 diabetes mellitus Renal failure Sleep apnea Diabetes HTN (hypertension) Surgical History Hx of right BKA History of surgical procedure (~04/24/23) Social History Social History Household Members: Family Household Members Other:: lives with mother Housing: House Unable to assess alcohol history related to: Unable to respond Alcohol intake: former Comment: bilateral wrist restraints/propofol drip for airway safety Patient Tobacco Use Status: Former Tobacco user Tobacco use type: Cigarette Cigarette Packs Per Day: 0.5 Cigarettes Per Day: 10.0 Years Smoked: 33 e-Cigarette/Vaping Use: Currently Using Second Hand Smoke Exposure: Yes Substance Use Type: Crack/Cocaine, Heroin, Marijuana and Opiates Advance Directives: No Advance Directives Information Provided: No service: No Physical Exam ED Vital Signs: Vital Signs - 24 hr 12/17/24 18:45 12/17/24 19:06 12/17/24 19:55 Temperature 98.4 F 100.9 F H Pulse Rate 83 Respiratory Rate 18 20 Blood Pressure 117/53 L Pulse Oximetry 98 Oxygen Delivery Method Room Air 12/17/24 21:09 Temperature Pulse Rate Respiratory Rate 20 Blood Pressure Pulse Oximetry Oxygen Delivery Method BMI result Body Mass Index 28.8 Const Other: Alert, ill-appearing, disheveled, his skin is dirty, appears older than stated age Orientation/consciousness: patient oriented x3 Resp Effort & Inspection: normal respiratory effort Cardio Other: Normal peripheral perfusion Skin Other: I took pictures to add to the chart of the decubitus ulcers that span over the posterior torso, they are of varying stages, some are purulent. There is a large open gaping wound lateral right thigh with purulent drainage deep to musculature, there is what appears to be potential dry gangrene over medial right thigh with purulent drainage Neuro General: patient oriented x3, no focal motor deficits and CN's II-XI intact bilaterally Psych Other: Cooperative Course Reevaluation(s) Reevaluation #1: sepsis identified, the patient's pressures are on the softer side, he is not tachycardic, he is febrile rectally to 100.9 I do believe his skin lesions are the source. In addition to the basic screening labs, I am adding inflammatory markers, blood cultures and lactic acid. We will be starting vancomycin and Zosyn, we will be giving a small 500 mL IV fluid bolus, this the patient is still makes some urine, he has volume restricted to 5 cups a day per his report. We will be giving Tylenol for the fever. Time: 19:43 Medications Administered Generic Name Dose Route Start Last Admin Trade Name Denzel PRN Reason Stop Dose Admin Atorvastatin Calcium 40 mg 12/17/24 22:15 12/17/24 22:46 Atorvastatin Calcium 40 Mg Tablet PO 40 mg BEDTIME LYSSA Administration Buprenorphine/Naloxone 1 film 12/17/24 22:15 12/17/24 22:47 Buprenorphine/Naloxone 8/2 Mg Film SUBLINGUAL 1 film TID LYSSA Administration Insulin Glargine 8 unit 12/17/24 21:20 12/17/24 22:47 Insulin Glargine,Hum.Rec.Anlog 100 Unit/Ml 10 Ml Vial SUBCUT 8 unit BEDTIME LYSSA Administration Midodrine 5 mg 12/17/24 22:15 12/17/24 22:47 Midodrine Hcl 5 Mg Tablet PO 5 mg BID LYSSA Administration Sevelamer Carbonate 1,600 mg 12/17/24 22:15 12/17/24 22:46 Sevelamer Carbonate Tablet 800 Mg Tablet PO 1,600 mg TID LYSSA Administration Sodium Chloride 3 ml 12/18/24 00:00 12/17/24 22:47 0.9 % Sodium Chloride Flush 3 Ml Syringe IVFLUSH 3 ml QSHIFT LYSSA Administration Torsemide 80 mg 12/17/24 22:15 12/17/24 22:46 Torsemide 20 Mg Tablet PO 80 mg BID LYSSA Administration Protocol Discontinued Medications Generic Name Dose Route Start Last Admin Trade Name Denzel PRN Reason Stop Dose Admin Acetaminophen 975 mg 12/17/24 19:45 12/17/24 19:55 Acetaminophen 325 Mg Tablet PO 12/17/24 19:46 975 mg ONCE ONE Administration Hydromorphone HCl 2 mg 12/17/24 19:43 12/17/24 19:55 Hydromorphone Hcl 2 Mg/Ml Vial IVPUSH 12/17/24 19:44 2 mg ONCE ONE Administration Protocol Hydromorphone HCl 2 mg 12/17/24 21:01 12/17/24 21:09 Hydromorphone Hcl 2 Mg/Ml Vial IVPUSH 12/17/24 21:02 2 mg ONCE ONE Administration Protocol Piperacillin Sod/Tazobactam 50 mls @ 100 mls/hr 12/17/24 19:43 12/17/24 20:57 Sod 3.375 gm/ Sodium Chloride IV 12/17/24 20:12 Infused ONCE ONE Infusion Sodium Chloride 500 mls @ 500 mls/hr 12/17/24 19:45 12/17/24 20:57 Ns IV 12/17/24 20:44 Infused .Q1H ONE Infusion Vancomycin HCl 2,000 mg in 500 mls @ 250 mls/hr 12/17/24 20:15 12/17/24 21:03 Vancomycin/Ns IV 12/17/24 22:14 250 mls/hr ONCE ONE Administration Iohexol 100 ml 12/17/24 20:10 12/17/24 20:10 Iohexol 350 Mg/Ml 100 Ml Infus..Btl IV 12/17/24 20:11 85 ml ONCE ONE Administration Procedures Procedure Narrative Procedure Narrative: Ultrasound-guided IV A 20 gauge 2-1/2 inch IV placed in left upper extremity. Adequate blood return, flushes well, secured with Tegaderm. Medical Decision Making Medical Decision Making [facility] Narrative: 44-year-old male with a history of ESRD on HD (MWF), essential hypertension, hyperlipidemia, PVD, s/p right BKA, type 2 diabetes mellitus opiate use disorder on Suboxone, with multiple decubitus ulcers of varying stages some with necrotic eschar, presents with weakness. Patient states he did not feel well today he missed his session of dialysis. Patient states he was recently admitted to [facility] due to infection associated with the his numerous decubitus ulcers. Denies recent cough or cold symptoms, no nausea vomiting diarrhea. Denies chest pain or shortness of breath, no orthopnea. Patient states he is fluid restricted to about 5 cups of fluid a day, he does produce minimal urine. Problem: End-stage renal, diabetes, opiate use disorder History: Per patient I have considered the following differential diagnoses: Sepsis, osteomyelitis, cellulitis, purulent cellulitis, viral syndrome, DKA Plan:sepsis identified, the patient's pressures are on the softer side, he is not tachycardic, he is febrile rectally to 100.9 I do believe his skin lesions are the source. In addition to the basic screening labs, I am adding inflammatory markers, blood cultures and lactic acid. We will be starting vancomycin and Zosyn, we will be giving a small 500 mL IV fluid bolus, this the patient is still makes some urine, he has volume restricted to 5 cups a day per his report. We will be giving Tylenol for the fever. When the patient arrived, he had vague symptoms of ?not feeling well?. He could have underlying viral syndrome as well, viral panel added. The patient's sugars are above 300, he could also be in concurrent DKA, we will add a beta hydroxy. Given he missed dialysis, I am obtaining a chest x-ray, adding an EKG to see if there was concern for potential electrolyte abnormality. I have independently reviewed the following tests: Labs: Leukocytosis with left shift, stable anemia, ESR 102, minimal hyponatremia, potassium 3.7, creatinine 4.6, no anion gap, blood sugar 251, lactic acid 1.5, Mag 2.3, CRP 17.09, BOH 0.05, viral panel negative EKG: Normal sinus rhythm, rate of 74, no ischemic changes no ectopy, QTC 470 Chest x-ray:indings: Lungs are clear without acute infiltrates. Previous pulmonary densities have resolved. No pneumothorax. Heart size normal. No acute bony abnormalities. Right central line unchanged. Impression: No acute processes This document has been electronically signed by: Mike Hernandez MD on 12/17/2024 20:22:39 CT left lower extremity:ubcutaneous edema lateral to right hip. This extends into proximal anterior thigh. Edema has improved considerably since prior. No focal fluid collection is identified. Skin irregularities anteromedial mid thigh. No underlying fluid collection is identified. Mid to distal thigh medial subcutaneous edema. Probable reactive inguinal adenopathy. Right iliac chain adenopathy also noted. Adenopathy is similar to prior study. No acute fracture or dislocation identified. No radiopaque foreign body noted. Impression: Multifocal subcutaneous edema as above Proximal edema has improved since prior CT pelvis No focal fluid collection or bony abnormality This document has been electronically signed by: Mike Hernandez MD on 12/17/2024 20:56:04 Lab Data 12/17/24 19:23 12/17/24 19:23 Labs: Lab Results 12/17/24 12/17/24 Range/Units 19:23 19:24 WBC 13.3 H (4.8-10.8) X10*3/uL RBC 3.45 L (4.60-5.80) X10*6/uL Hgb 8.8 L (14.0-18.0) g/dl Hct 29.1 L (42.0-52.0) % MCV 84.3 (80.0-98.0) fL MCH 25.5 L (27.0-33.0) pg MCHC 30.2 L (31.0-36.0) g/dl RDW 15.9 (11.0-16.0) % Plt Count 469 H (160-400) X10*3/uL MPV 10.3 (9.4-12.4) fL Immature Gran % (Auto) 0.6 H (0.0-0.4) % Neut % (Auto) 73.1 H (45-73) % Lymph % (Auto) 15.4 L (20-40) % [place] % (Auto) 6.5 (2-11) % Eos % (Auto) 4.0 (0-4) % Baso % (Auto) 0.4 (0-2) % Lymph # (Auto) 2.1 (1.2-4.9) X10*3/uL Ellsworth # (Auto) 0.9 (0.1-1.2) X10*3/uL Eos # (Auto) 0.5 H (0.0-0.4) X10*3/uL Baso # (Auto) 0.1 (0.0-0.2) X10*3/uL Abs Immat Gran (auto) 0.08 H (0.00-0.03) X10*3/uL Absolute Neuts (auto) 9.7 H (2.0-8.3) x10*3/uL Absolute Nucleated RBC 0.000 (0.0-0.012) X10*3/uL Nucleated RBC % (auto) 0.0 (0.0-0.2) /100WBC ESR 102 H (0-15) MM/HR PT 12.7 H (10.9-12.4) SEC INR 1.1 (0.9-1.1) Sodium 132 L (135-145) mmol/L Potassium 3.7 (3.3-5.1) mmol/L Chloride 92 L (96-108) mmol/L Carbon Dioxide 28 (22-29) mmol/L Anion Gap 16 (12-20) BUN 34 H (9-16) mg/dL Creatinine 4.60 H* (0.5-1.4) mg/dL Estim Creat Clear Calc 22.0 Estimated GFR 14 Random Glucose 251 H (60-115) mg/dL Lactic Acid 1.5 (0.5-2.0) mmol/L Calcium 8.9 (8.4-10.2) mg/dL Magnesium 2.3 (1.6-2.6) mg/dL Total Bilirubin 0.4 (0.0-1.0) mg/dL AST 37 (5-37) U/L ALT 11 (0-40) U/L Alkaline Phosphatase 187 H (39-117) U/L C-Reactive Protein 17.09 H (< or = 0.50) mg/dL Total Protein 8.7 H (6.5-8.0) g/dL Albumin 2.6 L (3.5-5.0) g/dL Beta-Hydroxybutyrate 0.05 (0.02-0.27) mmol/L Influenza Type A (PCR) NEGATIVE (Negative) Influenza Type B (PCR) NEGATIVE (Negative) RSV RNA Qual (PCR) NEGATIVE (Negative) SARS-CoV-2 RNA (RT-PCR) NEGATIVE (Negative) Critical Care Time Critical Care Time Critical Care Time: Yes Total Critical Care Time: 30 Attestation: I Ninfa Cid PA-C have personally performed 30 minutes of critical care time not including procedures and lines Discharge Plan Discharge Clinical Impression: Decubitus ulcer, Sepsis, Diabetic skin ulcer Patient Disposition: Admitted As Inpatient
[2024-12-17] MEDS: HYDROmorphone HCl 2 MG/ML VIAL IVPUSH ×2 (19:55→21:09)
[2024-12-17] MEDS: Piperacillin Sodium/Tazobactam 3.375 GM in 0.9 % Sodium Chloride 50 ML IV (19:55)
[2024-12-17] MEDS: Acetaminophen 325 MG TABLET 975 MG PO (19:55)
[2024-12-17] MEDS: 0.9 % Sodium Chloride 500 ML IV (19:57)
[2024-12-17 20:10] LABS: Influenza A PCR NEGATIVE (Negative); Influenza B PCR NEGATIVE (Negative); Resp Syncy Virus RNA Qual PCR NEGATIVE (Negative); SARS COV2 PCR INHOUSE NEGATIVE (Negative)
[2024-12-17] MEDS: iohexoL 350 MG/ML 100 ML INFUS..BTL IV (20:10)
[2024-12-17 20:15] LABS: Erythrocyte Sedimentation Rate 102 MM/HR (0-15)
--- NOTE | 2024-12-17 20:26 | MHC.EDTECH ---
EKG delay due to procedures
[2024-12-17] MEDS: vancomycin/NS 2,000 MG/500 ML PLAST..BAG 250 MG IV (21:03)
--- NOTE | 2024-12-17 21:13 | PHA.MEDREC ---
Pharmacy Consult ? Medication Reconciliation Pharmacy has completed the medication reconciliation, spoke to patient at bedside who was poor historian but was able to confirm some medications. Utilized claims and discharged packet from 11/25/24 and what patient said.
--- NOTE | 2024-12-17 21:47 | P.HPHOSP_ITS ---
History of Present Illness Date of Service: 12/17/24 Attending physician on admission: Sharif Duvall Chief Complaint: Worsening bed sores Pt is a 44-year-old male with a PMH significant for?ESRD of HD M/W/F, insulin- dependent type 2 diabetes, PVD, s/p right BKA, hx of MRSA bacteremia w/ pulmonic valve vegetation, chronic decubitus ulcers, HTN, HLD, and polysubstance use disorder on Suboxone who presents to the ED with?worsening decubitus ulcers and all-over body pain for the past couple of days. Pt recently discharged after a prolonged hospital stay from 11/05-11/25 where he was treated for septic shock from possible unresolved MRSA bacteremia and new infection from dermatologic source. Given extent of patient's chronic decubitus ulcers and need for wound care he was offered to be discharged to rehab for wound care and medical management, but pt refused STR and instead elected to go home with services. Pt reports that he never received any visits from either VNA or wound care since discharge. Ran out of topical wound care cream a few days ago and since then wounds have worsened with increased pain and purulent discharge. Pt reports has felt more fatigued and tired. No fever or chills. Denies nausea, vomiting, abdominal pain. Denies chest pain/pressure, palpitations. No SOB or difficulty breathing. Of note, pt missed dialysis today due to not feeling well. In the ED pt was febrile up to 100.9, vitals otherwise stable and WNL. Labs were significant for sodium 132, BUN 34, creatinine 4.60, and CRP 17.09. Chronic leukocytosis of 13.3 around baseline. Stable normocytic anemia of 8.8/29.1. Lactic acid WNL at 1.5. Chronically elevated alk-phos of 187. Albumin chronically low at 2.6. Tested negative for flu, COVID, RSV. CXR showed no acute process. CT of right femur showed no focal fluid collection or bony abnormality suggestive of osteomyelitis, but did show multifocal subcutaneous edema with proximal edema has improved since prior CT of pelvis. EKG demonstrated normal sinus rhythm without evidence of significant ST elevations or depressions. Pt was treated with acetaminophen, IVF, Dilaudid, vancomycin, and Zosyn. Pt will be admitted to the hospital treatment and further evaluation of multiple areas of cellulitis in the setting of worsening chronic decubitus ulcers. Review of Systems 2 Review of Systems: Negative except for that which is stated in the [facility] Medical History Opioid use disorder, severe, dependence Bacteremia Volume overload Paroxysmal atrial flutter Cardiomyopathy Pericardial effusion Atrial flutter Need for acute hemodialysis Leukocytosis Anemia Anemia Transfusion history Atrial flutter, paroxysmal COPD (chronic obstructive pulmonary disease) Constipation Callus of foot Seizure Polysubstance abuse CKD (chronic kidney disease) stage 3, GFR 30-59 ml/min Foot osteomyelitis, left Amputation of toe of right foot Diabetic ulcer of right foot Hyperglycemia due to type 2 diabetes mellitus Renal failure Sleep apnea Diabetes HTN (hypertension) Surgical History Hx of right BKA History of surgical procedure (~04/24/23) Social History Household Members: Family Household Members Other:: lives with mother Housing: House Unable to assess alcohol history related to: Unable to respond Alcohol intake: former Comment: bilateral wrist restraints/propofol drip for airway safety Patient Tobacco Use Status: Former Tobacco user Tobacco use type: Cigarette Cigarette Packs Per Day: 0.5 Cigarettes Per Day: 10.0 Years Smoked: 33 e-Cigarette/Vaping Use: Currently Using Second Hand Smoke Exposure: Yes Substance Use Type: Crack/Cocaine, Heroin, Marijuana and Opiates Advance Directives: No Advance Directives Information Provided: No service: No Meds Allergies Allergy/AdvReac Type Severity Reaction Status Date / Time No Known Allergies Allergy Verified 12/17/24 18:47 [No Known Allergies*] Active Medications: Current Medications Acetaminophen (Acetaminophen 325 Mg Tablet) 650 mg PO Q6H PRN PRN Reason: Pain, Mild 1-3,fever,headache Calcium Carbonate (Calcium Carbonate 750 Mg Tab.Chew) 750 mg PO Q4H PRN PRN Reason: Heartburn Dextrose (Dextrose 50 % 25 Gm/50 Ml Syringe) 25 gm IVPUSH Q15M PRN; Protocol PRN Reason: per Hypoglycemia Standing Ord. Glucose (Glucose Gel 15 Gm Gel..Gram.) 15 gm PO Q15M PRN; Protocol PRN Reason: per Hypoglycemia Standing Ord. Hydromorphone HCl (Hydromorphone Hcl 1 Mg/Ml Syringe) 1 mg IVPUSH Q4H PRN; Protocol PRN Reason: Pain, Severe (Pain Scale 7-10) Vancomycin HCl (Vancomycin/Ns) 2,000 mg in 500 mls @ 250 mls/hr IV ONCE ONE Stop: 12/17/24 22:14 Last Admin: 12/17/24 21:03 Dose: 250 mls/hr Insulin Glargine (Insulin Glargine,Hum.Rec.Anlog 100 Unit/Ml 10 Ml Vial) 8 unit SUBCUT BEDTIME LYSSA Insulin Human Lispro (Insulin Lispro 100 Unit/Ml 3 Ml Vial) 0 unit SUBCUT QIDACHS [facility]; Protocol Magnesium Hydroxide (Milk Of Magnesia 30 Ml Oral.Susp) 30 ml PO DAILY PRN PRN Reason: Constipation Melatonin (Melatonin 3 Mg Tablet) 6 mg PO BEDTIME PRN PRN Reason: Insomnia Ondansetron HCl (Ondansetron Hcl 4 Mg/2 Ml Vial) 4 mg IVPUSH Q8H PRN PRN Reason: Nausea and Vomiting Sodium Chloride (0.9 % Sodium Chloride Flush 3 Ml Syringe) [facility] Medications ?Medication ?Instructions ?Recorded ?Confirmed ?Last Taken ?Type insulin lispro 100 unit/mL See Protocol subcut TIDAC 09/28/24 12/17/24 11/04/24 History subcutaneous pen (Humalog KwikPen (U-100) Insulin) melatonin 5 mg tablet 5 mg PO BEDTIME PRN insomnia 09/28/24 12/17/24 11/04/24 History insulin glargine 100 unit/mL (3 10 unit subcut BEDTIME 12/17/24 12/17/24 Unknown History mL) subcutaneous pen sevelamer carbonate 800 mg tablet 1,600 mg PO TID 12/17/24 12/17/24 Unknown History Physical Exam 2 Vital Signs and Narrative: Vital Signs: Last Vital Signs Temp 100.9 F H 12/17/24 19:06 Pulse 83 12/17/24 18:45 Resp 20 12/17/24 21:09 BP 117/53 L 12/17/24 18:45 Pulse Ox 98 12/17/24 18:45 O2 Del Method Room Air 12/17/24 18:45 BMI result Body Mass Index 28.8 General: AOx3, no acute distress Resp: CTA bilaterally CVS: S1, S2, RRR GI: +BS, NT, no distention Skin: Multiple areas of chronic decubitus ulcers in various stages concerning for necrosis and cellulitis. As pictured below. Neuro: Cranial nerves II-XII grossly intact bilaterally. Motor grossly intact bilaterally Extremities: Right BKA. Left lower extremity with chronic wound as pictured below. Psych: Appropriate affect Results Labs 12/17/24 19:23 12/17/24 19:23 Labs: Laboratory Results - last 24 hr 12/17/24 12/17/24 19:23 19:24 MCV 84.3 MCH 25.5 L MCHC 30.2 L RDW 15.9 Plt Count 469 H MPV 10.3 Immature Gran % (Auto) 0.6 H Neut % (Auto) 73.1 H Lymph % (Auto) 15.4 L [place] % (Auto) 6.5 Eos % (Auto) 4.0 Baso % (Auto) 0.4 Lymph # (Auto) 2.1 [place] # (Auto) 0.9 Eos # (Auto) 0.5 H Baso # (Auto) 0.1 Abs Immat Gran (auto) 0.08 H Absolute Neuts (auto) 9.7 H Absolute Nucleated RBC 0.000 Nucleated RBC % (auto) 0.0 ESR 102 H PT 12.7 H INR 1.1 Anion Gap 16 Estim Creat Clear Calc 22.0 Estimated GFR 14 Random Glucose 251 H Lactic Acid 1.5 Calcium 8.9 Magnesium 2.3 Total Bilirubin 0.4 AST 37 ALT 11 Alkaline Phosphatase 187 H C-Reactive Protein 17.09 H Total Protein 8.7 H Albumin 2.6 L Beta-Hydroxybutyrate 0.05 Influenza Type A (PCR) NEGATIVE Influenza Type B (PCR) NEGATIVE RSV RNA Qual (PCR) NEGATIVE SARS-CoV-2 RNA (RT-PCR) NEGATIVE Assessment and Plan (1) Cellulitis: Qualifiers: Site of cellulitis: trunk Site of cellulitis of trunk: abdominal wall Qualified Code(s): L03.311 - Cellulitis of abdominal wall Status: Acute (2) Decubitus ulcer: Status: Acute Plan Pt is a 44-year-old male with a PMH significant for?ESRD of HD M/W/F, paroxysmal a flutter on Eliquis and amiodarone, insulin-dependent type 2 diabetes, PVD, s/p right BKA, hx of MRSA bacteremia w/ pulmonic valve vegetation, chronic decubitus ulcers, HTN, HLD, and polysubstance use disorder on Suboxone who presents to the ED with?worsening decubitus ulcers and all-over body pain for the past couple of days. Pt will be admitted to the hospital treatment and further evaluation of multiple areas of cellulitis in the setting of worsening chronic decubitus ulcers. Cellulitis in the setting of chronic skin and decubitus ulcers No sepsis: Chronic leukocytosis, no fever, tachycardia, or tachypnea; lactic acid WNL Pt with hx MRSA bacteremia and endocarditis Will treat with vancomycin and cefepime, started 12/17/2022 Wound care consult General surgery consult Pt positioning q.2h Air loss mattress Follow wound cultures ESRD on HD M/W/F Missed dialysis today due to feeling unwell No significant electrolyte abnormalities Nephrology consult, follows with RTANE Continue torsemide Paroxysmal atrial flutter Hold Eliquis pending General surgery input regarding possible surgical debridement Continue amiodarone and metoprolol Insulin-dependent type 2 diabetes Sliding-scale insulin, Lantus Diabetic diet HLD Continue statin Hx of hypotension Continue midodrine GERD Continue PPI Polysubstance use disorder Continue Suboxone Full Code Attending:?Dr. Duvall DVT Prophylaxis: Pneumatic compression due to possible surgical debridement; resume Eliquis as warranted Pt will require a hospitalization of at least two nights for treatment of cellulitis in the setting of multiple areas of worsening chronic decubitus ulcers. Given the extent of patient's skin breakdown and apparent lack of home services, pt will require hospital level care for administration of IV antibiotics and wound care management involving both General surgery and Wound Care Specialists. Quality Stroke Does the patient have a stroke diagnosis?: No VTE Prior VTE?: No VTE Risk Level:: Medical - moderate - high VTE Device Contraindication: N/A - Device Ordered VTE Drug Contraindication: Treatment Not Indicated
--- NOTE | 2024-12-17 22:02 | PC.NURSE ---
Vancomycin initiated and infusing as ordered. Medicated with Dilaudid for 8 out of 10 back pain, and pain at wound sites. Patient is non-ambulatory at baseline. Right arm fistula. IV access established prior to this RN's shift in left bicep with ultrasound guidance. Sepsis protocol paperwork completed. Urinal provided, room cleaned up/organized by this RN. Call arcos within reach. Care ongoing by this RN.
[2024-12-17] MEDS: Sevelamer Carbonate Tablet 800 MG TABLET 1600 MG PO (22:46)
[2024-12-17] MEDS: Torsemide 20 MG TABLET 80 MG PO (22:46)
[2024-12-17] MEDS: Atorvastatin Calcium 40 MG TABLET PO (22:46)
[2024-12-17] MEDS: Insulin Glargine,Hum.rec.anlog 100 UNIT/ML 10 ML VIAL 8 UNIT SUBCUT (22:47)
[2024-12-17] MEDS: Buprenorphine/Naloxone 8/2 mg FILM 1 FILM SUBLINGUAL (22:47)
[2024-12-17] MEDS: Midodrine HCl 5 MG TABLET PO (22:47)
[2024-12-17] MEDS: 0.9 % Sodium Chloride Flush 3 ML SYRINGE IVFLUSH (22:47)
[2024-12-17 22:48] LABS: Glucose, Whole Blood 178 mg/dL (60-115)
[2024-12-17] MEDS: oxyCODONE HCl Immed Release 5 MG TABLET 10 MG PO (23:48)
[2024-12-17] MEDS: cefEPime HCl 1 GM in 0.9 % Sodium Chloride 50 ML IV (23:51)
[2024-12-18 03:42] VITALS: RESP 16
[2024-12-18] MEDS: HYDROmorphone HCl 1 MG/ML SYRINGE IVPUSH ×3 (03:42→18:36)
[2024-12-18] MEDS: Acetaminophen 325 MG TABLET 650 MG PO (03:43)
--- NOTE | 2024-12-18 03:47 | PC.NURSE ---
Requested and given Jell-O (yellow). Medicated for 8 out of 10 pain with Dilaudid & Tylenol. Care ongoing by this RN.
[2024-12-18 07:29] LABS: Glucose, Whole Blood 96 mg/dL (60-115)
[2024-12-18 07:35] LABS: Anion Gap 15 (12-20); Blood Urea Nitrogen 37 mg/dL (9-16); Calcium 8.2 mg/dL (8.4-10.2); Carbon Dioxide 23 mmol/L (22-29); Chloride 98 mmol/L (96-108); Estimated Glomerular Filt Rate 13; Glucose Random 108 mg/dL (60-115); Potassium 4.3 mmol/L (3.3-5.1); Sodium 132 mmol/L (135-145)
[2024-12-18 07:47] VITALS: BP 124/66; PULSE 60; RESP 14; TEMP 36.7; O2SAT 100
[2024-12-18] MEDS: Omeprazole 20 MG CAPSULE.DR PO (07:48)
[2024-12-18 07:50] LABS: Basophils Absolute Auto 0.1 X10*3/uL (0.0-0.2); Basophils Percent Auto 0.5 % (0-2); Eosinophils Absolute Auto 0.6 X10*3/uL (0.0-0.4); Eosinophils Percent Auto 4.8 % (0-4); Hematocrit 25.4 % (42.0-52.0); Hemoglobin 7.8 g/dl (14.0-18.0); Imm Gran Abs Auto 0.15 X10*3/uL (0.00-0.03); Imm Gran Pct Auto 1.2 % (0.0-0.4); Lymphocytes Absolute Auto 2.3 X10*3/uL (1.2-4.9); Lymphocytes Percent Auto 17.9 % (20-40); MANUAL DIFF FLAG SCAN; Mean Corpuscular HGB Conc 30.7 g/dl (31.0-36.0); Mean Corpuscular Hemoglobin 25.5 pg (27.0-33.0); Monocytes Absolute Auto 1.1 X10*3/uL (0.1-1.2); Monocytes Percent Auto 8.2 % (2-11); Neutrophils Absolute Auto 8.8 x10*3/uL (2.0-8.3); Neutrophils Percent Auto 67.4 % (45-73); PLT CLUMP 1; Red Blood Count 3.06 X10*6/uL (4.60-5.80); Red Cell Distribution Width 16.1 % (11.0-16.0); SCAN SMEAR FLAG 1
[2024-12-18 09:49] LABS: SLIDE REVIEW VERIFIED
[2024-12-18] MEDS: Buprenorphine/Naloxone 8/2 mg FILM 1 FILM SUBLINGUAL ×3 (09:58→21:30)
[2024-12-18] MEDS: Amiodarone HCL 200 MG TABLET PO (09:58)
[2024-12-18] MEDS: Multivitamin TABLET 1 TAB PO (09:58)
[2024-12-18] MEDS: Calcium Acetate 667 MG CAPSULE 1334 MG PO ×3 (09:58→18:31)
[2024-12-18] MEDS: Sevelamer Carbonate Tablet 800 MG TABLET 1600 MG PO ×3 (09:58→21:30)
[2024-12-18] MEDS: Midodrine HCl 5 MG TABLET PO ×2 (09:59→21:30)
[2024-12-18] MEDS: calcitrioL 0.25 MCG CAPSULE 0.5 MCG PO (09:59)
[2024-12-18] MEDS: Torsemide 20 MG TABLET 80 MG PO ×2 (09:59→21:31)
[2024-12-18] MEDS: Metoprolol Succinate ER 50 MG TAB.ER.24H PO (09:59)
--- NOTE | 2024-12-18 11:26 | MHC.CM.PN ---
Addendum entered by Lou Goodman 12/18/24 12:19: COMFORT +VNA LIAISON, WHO PT HAD BEEN REFERRED TO LAST VISIT, CALLED AND STATED THEY WERE UNABLE TO START CARE DUE TO PT NOT BEING CURRENT WITH PCP AND THE PCP DECLINING TO SIGN ORDERS. SHE ALSO STATED THEY DID TRY TO SEE PT BEFORE THEY KNEW THE PCP WAS NOT GOING TO SIGN AND MOTHER TURNED THEM AWAY. CM WILL CONTINUE TO FOLLOW FOR PLAN Original Note: CM MET WITH PT/MOTHER IN ED. PT LIVES WITH MOTHER ARLEN WHO ASSISTS WITH PT'S CARE. PT IS ESSENTIALLY BEDBOUND UNABLE TO USE HIS PROSTHETIC DUE TO SWELLING/WOUNDS. PT ATTENDS HD AT [facility] AND HAS TRANSPORT [facility]IA [facility]. NO VNA CURRENTLY IN HOME, CM WILL REFER TO CONTRACTED AGENCIES. PT STATES WE HAVE A COPY OF HIS HCP, WILLING TO COMPLETE A NEW ONE IF UNABLE TO LOCATE. PCP DR. DENG AT [facility]. + THRIVE ASSESSMENT, RESOURCE GUIDE PROVIDED. DP: HOME WITH NEW VNA? P.T. WILL NEED TO EVAL FOR DC DISPO. PT WILL NEED BLS TRANSPORT. CM WILL CONTINUE TO FOLLOW FOR DC PLAN/NEEDS.
--- NOTE | 2024-12-18 12:06 | HO.PM.IMPN ---
Subjective Subjective Date of Service: 12/18/24 Review of Systems Follow up leg wounds, cellulitis pain to wounds Physical Exam Vital Signs: Vital Signs: Last Vital Signs Temp 98.0 F 12/18/24 07:47 Pulse 60 12/18/24 07:47 Resp 14 12/18/24 07:47 BP 124/66 12/18/24 07:47 Pulse Ox 100 12/18/24 07:47 O2 Del Method Room Air 12/18/24 07:47 BMI result Body Mass Index 28.8 Appearing in no acute distress lung sounds are clear to auscultation heart regular rate rhythm, clear S1, S2 positive bowel sounds, abdomen is soft, nontender neuro patient is alert x3, no focal deficits Objective Data Active Medications Acetaminophen (Acetaminophen 325 Mg Tablet) 650 mg PO Q6H PRN PRN Reason: Pain, Mild 1-3,fever,headache Last Admin: 12/18/24 03:43 Dose: 650 mg Documented By: MANDY Amiodarone HCl (Amiodarone Hcl 200 Mg Tablet) 200 mg PO DAILY [facility] Last Admin: 12/18/24 09:58 Dose: 200 mg Documented By: SAM Atorvastatin Calcium (Atorvastatin Calcium 40 Mg Tablet) 40 mg PO BEDTIME [facility] Last Admin: 12/17/24 22:46 Dose: 40 mg Documented By: MANDY Buprenorphine/Naloxone (Buprenorphine/Naloxone 8/2 Mg Film) 1 film SUBLINGUAL TID [facility] Last Admin: 12/18/24 09:58 Dose: 1 film Documented By: SAM Calcitriol (Calcitriol 0.25 Mcg Capsule) 0.5 mcg PO DAILY [facility] Last Admin: 12/18/24 09:59 Dose: 0.5 mcg Documented By: SAM Calcium Acetate (Calcium Acetate 667 Mg Capsule) 1,334 mg PO TIDWM [facility] Last Admin: 12/18/24 09:58 Dose: 1,334 mg Documented By: SAM Calcium Carbonate (Calcium Carbonate 750 Mg Tab.Chew) 750 mg PO Q4H PRN PRN Reason: Heartburn Dextrose (Dextrose 50 % 25 Gm/50 Ml Syringe) 25 gm IVPUSH Q15M PRN; Protocol PRN Reason: per Hypoglycemia Standing Ord. Glucose (Glucose Gel 15 Gm Gel..Gram.) 15 gm PO Q15M PRN; Protocol PRN Reason: per Hypoglycemia Standing Ord. Hydromorphone HCl (Hydromorphone Hcl 1 Mg/Ml Syringe) 1 mg IVPUSH Q4H PRN; Protocol PRN Reason: Pain, Severe (Pain Scale 7-10) Last Admin: 12/18/24 03:42 Dose: 1 mg Documented By: MANDY Cefepime HCl 0.5 gm/ Sodium (Chloride) 50 mls @ 100 mls/hr IV Q24H [facility] Vancomycin HCl 500 mg/ Sodium (Chloride) 110 mls @ 110 mls/hr IV ONCE ONE Stop: 12/20/24 16:59 Insulin Glargine (Insulin Glargine,Hum.Rec.Anlog 100 Unit/Ml 10 Ml Vial) 8 unit SUBCUT BEDTIME [facility] Last Admin: 12/17/24 22:47 Dose: 8 unit Documented By: MANDY Insulin Human Lispro (Insulin Lispro 100 Unit/Ml 3 Ml Vial) 0 unit SUBCUT QIDACHS [facility]; Protocol Last Admin: 12/18/24 07:26 Dose: Not Given Documented By: SAM Non-Admin Reason: No Insulin Coverage Magnesium Hydroxide (Milk Of Magnesia 30 Ml Oral.Susp) 30 ml PO DAILY PRN PRN Reason: Constipation Melatonin (Melatonin 3 Mg Tablet) 6 mg PO BEDTIME PRN PRN Reason: Insomnia Metoprolol Succinate (Metoprolol Succinate Er 50 Mg Tab.Er.24h) 50 mg PO DAILY [facility]; Protocol Last Admin: 12/18/24 09:59 Dose: 50 mg Documented By: SAM Midodrine (Midodrine Hcl 5 Mg Tablet) 5 mg PO BID [facility] Last Admin: 12/18/24 09:59 Dose: 5 mg Documented By: SAM Multivitamins/Vitamin C (Multivitamin Tablet) 1 tab PO DAILY [facility] Last Admin: 12/18/24 09:58 Dose: 1 tab Documented By: SAM Omeprazole (Omeprazole 20 Mg Capsule.Dr) 20 mg PO DAILY@0630 [facility] Last Admin: 12/18/24 07:48 Dose: 20 mg Documented By: SAM Ondansetron HCl (Ondansetron Hcl 4 Mg/2 Ml Vial) 4 mg IVPUSH Q8H PRN PRN Reason: Nausea and Vomiting Oxycodone HCl (Oxycodone Hcl Immed Release 5 Mg Tablet) 10 mg PO Q4H PRN PRN Reason: Pain, Moderate(Pain Scale 4-6) Pharmacy Consult (Consult Rx Vancomycin Dosing) 1 each MISCELLANE DAILY PRN PRN Reason: Consult order Polyethylene Glycol (Polyethylene Glycol 3350 17 Gm Powd.Pack) 17 gm PO DAILY PRN PRN Reason: Constipation Sevelamer Carbonate (Sevelamer Carbonate Tablet 800 Mg Tablet) 1,600 mg PO TID [facility] Last Admin: 12/18/24 09:58 Dose: 1,600 mg Documented By: SAM Sodium Chloride (0.9 % Sodium Chloride Flush 3 Ml Syringe) 3 ml IVFLUSH QSHIFT [facility] Last Admin: 12/18/24 07:27 Dose: Not Given Documented By: SAM Non-Admin Reason: IV Running Torsemide (Torsemide 20 Mg Tablet) 80 mg PO BID [facility]; Protocol Last Admin: 12/18/24 09:59 Dose: 80 mg Documented By: SAM Labs 12/18/24 07:07 12/18/24 07:07 Labs: Laboratory Results - last 24 hr 12/17/24 12/17/24 12/17/24 19:23 19:24 22:41 MCV 84.3 MCH 25.5 L MCHC 30.2 L RDW 15.9 Plt Count 469 H MPV 10.3 Immature Gran % (Auto) 0.6 H Neut % (Auto) 73.1 H Lymph % (Auto) 15.4 L [place] % (Auto) 6.5 Eos % (Auto) 4.0 Baso % (Auto) 0.4 Lymph # (Auto) 2.1 [place] # (Auto) 0.9 Eos # (Auto) 0.5 H Baso # (Auto) 0.1 Abs Immat Gran (auto) 0.08 H Absolute Neuts (auto) 9.7 H Absolute Nucleated RBC 0.000 Nucleated RBC % (auto) 0.0 Smear Tech's Comments ESR 102 H PT 12.7 H INR 1.1 Anion Gap 16 Estim Creat Clear Calc 22.0 Estimated GFR 14 POC Glucose 178 H Random Glucose 251 H Lactic Acid 1.5 Calcium 8.9 Magnesium 2.3 Total Bilirubin 0.4 AST 37 ALT 11 Alkaline Phosphatase 187 H C-Reactive Protein 17.09 H Total Protein 8.7 H Albumin 2.6 L Beta-Hydroxybutyrate 0.05 Influenza Type A (PCR) NEGATIVE Influenza Type B (PCR) NEGATIVE RSV RNA Qual (PCR) NEGATIVE SARS-CoV-2 RNA (RT-PCR) NEGATIVE 12/18/24 12/18/24 07:07 07:23 MCV 83.0 MCH 25.5 L MCHC 30.7 L RDW 16.1 H Plt Count TNP MPV Not Reportable Immature Gran % (Auto) 1.2 H Neut % (Auto) 67.4 Lymph % (Auto) 17.9 L [place] % (Auto) 8.2 Eos % (Auto) 4.8 H Baso % (Auto) 0.5 Lymph # (Auto) 2.3 [place] # (Auto) 1.1 Eos # (Auto) 0.6 H Baso # (Auto) 0.1 Abs Immat Gran (auto) 0.15 H Absolute Neuts (auto) 8.8 H Absolute Nucleated RBC 0.000 Nucleated RBC % (auto) 0.0 Smear Tech's Comments VERIFIED ESR PT INR Anion Gap 15 Estim Creat Clear Calc 21.0 Estimated GFR 13 POC Glucose 96 Random Glucose 108 Lactic Acid Calcium 8.2 L D Magnesium Total Bilirubin AST ALT Alkaline Phosphatase C-Reactive Protein Total Protein Albumin Beta-Hydroxybutyrate Influenza Type A (PCR) Influenza Type B (PCR) RSV RNA Qual (PCR) SARS-CoV-2 RNA (RT-PCR) Assessment and Plan (1) Hyperglycemia: Status: Acute Plan Pt is a 44-year-old male with a PMH significant for?ESRD of HD M/W/F, paroxysmal a flutter on Eliquis and amiodarone, insulin-dependent type 2 diabetes, PVD, s/p right BKA, hx of MRSA bacteremia w/ pulmonic valve vegetation, chronic decubitus ulcers, HTN, HLD, and polysubstance use disorder on Suboxone who presents to the ED with?worsening decubitus ulcers and all-over body pain for the past couple of days. Pt will be admitted to the hospital treatment and further evaluation of multiple areas of cellulitis in the setting of worsening chronic decubitus ulcers. Cellulitis in the setting of chronic skin and decubitus ulcers No sepsis: Chronic leukocytosis, no fever, tachycardia, or tachypnea; lactic acid WNL Pt with hx MRSA bacteremia and endocarditis vancomycin and cefepime, started 12/17/2022 Wound care consult General surgery consult positioning q.2h Air loss mattress Follow wound cultures ESRD on HD M/W/F Missed dialysis today due to feeling unwell No significant electrolyte abnormalities Nephrology consult, follows with RTANE Continue torsemide Paroxysmal atrial flutter Hold Eliquis pending General surgery input regarding possible surgical debridement Continue amiodarone and metoprolol Insulin-dependent type 2 diabetes Sliding-scale insulin, Lantus Diabetic diet HLD Continue statin Hx of hypotension Continue midodrine GERD Continue PPI Polysubstance use disorder Continue Suboxone Full Code Attending:?Dr. Cooper DVT Prophylaxis: Pneumatic compression due to possible surgical debridement; resume Eliquis as warranted Quality Stroke Does the patient have a stroke diagnosis?: No VTE Prior VTE?: No VTE Risk Level:: Medical - moderate - high VTE Device Contraindication: N/A - Device Ordered VTE Drug Contraindication: Treatment Not Indicated
[2024-12-18 13:26] LABS: Glucose, Whole Blood 184 mg/dL (60-115)
[2024-12-18] MEDS: Insulin Lispro 100 UNIT/ML 3 ML VIAL SUBCUT ×2 (13:32→18:30)
[2024-12-18] MEDS: Sodium Hypochlorite 0.5% 473 ML SOLUTION 1 APPL TOPICAL (13:32)
--- NOTE | 2024-12-18 14:35 | PC.NURSE ---
pt premedicated prior to interventions. wounds thoroughly cleansed w/ dakin's solution. affected areas covered w/ variety small, medium and large pink foams. pt turned/repositioned to comfort. pt tolerated intervention well.
[2024-12-18] MEDS: oxyCODONE HCl Immed Release 5 MG TABLET 10 MG PO ×2 (15:17→21:41)
--- NOTE | 2024-12-18 15:17 | P.CONGS_ITS ---
History of Present Illness Consult details Consult date: 12/18/24 Narrative: Patient seen in ER bed 24 consult regarding multiple wounds. Patient was admitted last month with a collection of issues including his decubitus ulcers involving his buttock and thigh areas. He was seen by Dr. Araya and underwent wound debridement by him at that admission. Patient has a tremendous plethora of comorbidities and has had several surgeries and amputations involving his lower extremities. He is on hemodialysis. History of opioid use/disorder/dependence among other intercurrent medical problems. [facility] Past Medical History Medical History Opioid use disorder, severe, dependence Bacteremia Volume overload Paroxysmal atrial flutter Cardiomyopathy Pericardial effusion Atrial flutter Need for acute hemodialysis Leukocytosis Anemia Anemia Transfusion history Atrial flutter, paroxysmal COPD (chronic obstructive pulmonary disease) Constipation Callus of foot Seizure Polysubstance abuse CKD (chronic kidney disease) stage 3, GFR 30-59 ml/min Foot osteomyelitis, left Amputation of toe of right foot Diabetic ulcer of right foot Hyperglycemia due to type 2 diabetes mellitus Renal failure Sleep apnea Diabetes HTN (hypertension) Surgical History Surgical History Hx of right BKA History of surgical procedure (~04/24/23) Social History Social History Household Members: Other Household Members Other:: mother Housing: Apartment Do you presently have visiting nurse or other home services: No Unable to assess alcohol history related to: Unable to respond Alcohol intake: former Comment: bilateral wrist restraints/propofol drip for airway safety Patient Tobacco Use Status: Current everyday Tobacco user Tobacco use type: Cigarette Cigarette Packs Per Day: 0.5 Cigarettes Per Day: 6 Years Smoked: 33 e-Cigarette/Vaping Use: Currently Using Second Hand Smoke Exposure: Yes Substance Use Type: Crack/Cocaine, Heroin, Marijuana and Opiates service: No Meds Allergies Allergy/AdvReac Type Severity Reaction Status Date / Time No Known Allergies Allergy Verified 12/17/24 18:47 [No Known Allergies*] Active Medications: Current Medications Acetaminophen (Acetaminophen 325 Mg Tablet) 650 mg PO Q6H PRN PRN Reason: Pain, Mild 1-3,fever,headache Last Admin: 12/18/24 03:43 Dose: 650 mg Amiodarone HCl (Amiodarone Hcl 200 Mg Tablet) 200 mg PO DAILY [facility] Last Admin: 12/18/24 09:58 Dose: 200 mg Atorvastatin Calcium (Atorvastatin Calcium 40 Mg Tablet) 40 mg PO BEDTIME [facility] Last Admin: 12/17/24 22:46 Dose: 40 mg Buprenorphine/Naloxone (Buprenorphine/Naloxone 8/2 Mg Film) 1 film SUBLINGUAL TID [facility] Last Admin: 12/18/24 09:58 Dose: 1 film Calcitriol (Calcitriol 0.25 Mcg Capsule) 0.5 mcg PO DAILY [facility] Last Admin: 12/18/24 09:59 Dose: 0.5 mcg Calcium Acetate (Calcium Acetate 667 Mg Capsule) 1,334 mg PO TIDWM [facility] Last Admin: 12/18/24 13:32 Dose: 1,334 mg Calcium Carbonate (Calcium Carbonate 750 Mg Tab.Chew) 750 mg PO Q4H PRN PRN Reason: Heartburn Dextrose (Dextrose 50 % 25 Gm/50 Ml Syringe) 25 gm IVPUSH Q15M PRN; Protocol PRN Reason: per Hypoglycemia Standing Ord. Glucose (Glucose Gel 15 Gm Gel..Gram.) 15 gm PO Q15M PRN; Protocol PRN Reason: per Hypoglycemia Standing Ord. Heparin Sodium (Porcine) (Heparin Sodium,Porcine 5,000 Unit/Ml Vial) 5,000 unit INTRACATH MOWEFR@1645 [facility] Hydromorphone HCl (Hydromorphone Hcl 1 Mg/Ml Syringe) 1 mg IVPUSH Q4H PRN; Protocol PRN Reason: Pain, Severe (Pain Scale 7-10) Last Admin: 12/18/24 13:32 Dose: 1 mg Cefepime HCl 0.5 gm/ Sodium (Chloride) 50 mls @ 100 mls/hr IV Q24H [facility] Vancomycin HCl 500 mg/ Sodium (Chloride) 110 mls @ 110 mls/hr IV ONCE ONE Stop: 12/20/24 16:59 Insulin Glargine (Insulin Glargine,Hum.Rec.Anlog 100 Unit/Ml 10 Ml Vial) 8 unit SUBCUT BEDTIME [facility] Last Admin: 12/17/24 22:47 Dose: 8 unit Insulin Human Lispro (Insulin Lispro 100 Unit/Ml 3 Ml Vial) 0 unit SUBCUT QIDACHS [facility]; Protocol Last Admin: 12/18/24 13:32 Dose: 2 unit Magnesium Hydroxide (Milk Of Magnesia 30 Ml Oral.Susp) 30 ml PO DAILY PRN PRN Reason: Constipation Melatonin (Melatonin 3 Mg Tablet) 6 mg PO BEDTIME PRN PRN Reason: Insomnia Metoprolol Succinate (Metoprolol Succinate Er 50 Mg Tab.Er.24h) 50 mg PO DAILY [facility]; Protocol Last Admin: 12/18/24 09:59 Dose: 50 mg Midodrine (Midodrine Hcl 5 Mg Tablet) 5 mg PO BID [facility] Last Admin: 12/18/24 09:59 Dose: 5 mg Multivitamins/Vitamin C (Multivitamin Tablet) 1 tab PO DAILY [facility] Last Admin: 12/18/24 09:58 Dose: 1 tab Omeprazole (Omeprazole 20 Mg Capsule.Dr) 20 mg PO DAILY@0630 [facility] Last Admin: 12/18/24 07:48 Dose: 20 mg Ondansetron HCl (Ondansetron Hcl 4 Mg/2 Ml Vial) 4 mg IVPUSH Q8H PRN PRN Reason: Nausea and Vomiting Oxycodone HCl (Oxycodone Hcl Immed Release 5 Mg Tablet) 10 mg PO Q4H PRN PRN Reason: Pain, Moderate(Pain Scale 4-6) Pharmacy Consult (Consult Rx Vancomycin Dosing) 1 each MISCELLANE DAILY PRN PRN Reason: Consult order Polyethylene Glycol (Polyethylene Glycol 3350 17 Gm Powd.Pack) 17 gm PO DAILY PRN PRN Reason: Constipation Sevelamer Carbonate (Sevelamer Carbonate Tablet 800 Mg Tablet) 1,600 mg PO TID [facility] Last Admin: 12/18/24 09:58 Dose: 1,600 mg Sodium Chloride (0.9 % Sodium Chloride Flush 3 Ml Syringe) 3 ml IVFLUSH QSHIFT [facility] Last Admin: 12/18/24 07:27 Dose: Not Given Sodium Hypochlorite (Sodium Hypochlorite 0.5% 473 Ml Solution) 1 appl TOPICAL DAILY [facility] Last Admin: 12/18/24 13:32 Dose: 1 appl Torsemide (Torsemide 20 Mg Tablet) 80 mg PO BID [facility]; Protocol Last Admin: 12/18/24 09:59 Dose: 80 mg Home Medications ?Medication ?Instructions ?Recorded ?Confirmed ?Last Taken ?Type insulin lispro 100 unit/mL See Protocol subcut TIDAC 09/28/24 12/17/24 11/04/24 History subcutaneous pen (Humalog KwikPen (U-100) Insulin) melatonin 5 mg tablet 5 mg PO BEDTIME PRN insomnia 09/28/24 12/17/24 11/04/24 History insulin glargine 100 unit/mL (3 10 unit subcut BEDTIME 12/17/24 12/17/24 Unknown History mL) subcutaneous pen sevelamer carbonate 800 mg tablet 1,600 mg PO TID 12/17/24 12/17/24 Unknown History Physical Exam 2 Vital Signs: Vital Signs: Last Vital Signs Temp 98.0 F 12/18/24 07:47 Pulse 60 12/18/24 07:47 Resp 14 12/18/24 07:47 BP 124/66 12/18/24 07:47 Pulse Ox 100 12/18/24 07:47 O2 Del Method Room Air 12/18/24 07:47 BMI result Body Mass Index 28.8 Skin: Other: The patient has multiple/several areas of decubiti ulcers/wounds minimally some healing/some nonhealing ulcers involving his buttock, right thigh, several areas of back. No evidence of any active infection. Some small eschars on some of these. Results Labs 12/18/24 07:07 12/18/24 07:07 Labs: Abnormal lab results 12/17/24 12/17/24 12/18/24 Range/Units 19:23 22:41 07:07 WBC 13.3 H 13.0 H (4.8-10.8) X10*3/uL RBC 3.45 L 3.06 L (4.60-5.80) X10*6/uL Hgb 8.8 L 7.8 L (14.0-18.0) g/dl Hct 29.1 L 25.4 L (42.0-52.0) % MCH 25.5 L 25.5 L (27.0-33.0) pg MCHC 30.2 L 30.7 L (31.0-36.0) g/dl RDW 16.1 H (11.0-16.0) % Plt Count 469 H (160-400) X10*3/uL Immature Gran % (Auto) 0.6 H 1.2 H (0.0-0.4) % Neut % (Auto) 73.1 H (45-73) % Lymph % (Auto) 15.4 L 17.9 L (20-40) % Eos % (Auto) 4.8 H (0-4) % Eos # (Auto) 0.5 H 0.6 H (0.0-0.4) X10*3/uL Abs Immat Gran (auto) 0.08 H 0.15 H (0.00-0.03) X10*3/uL Absolute Neuts (auto) 9.7 H 8.8 H (2.0-8.3) x10*3/uL ESR 102 H (0-15) MM/HR PT 12.7 H (10.9-12.4) SEC Sodium 132 L 132 L (135-145) mmol/L Chloride 92 L (96-108) mmol/L BUN 34 H 37 H (9-16) mg/dL Creatinine 4.60 H* 4.82 H* (0.5-1.4) mg/dL POC Glucose 178 H (60-115) mg/dL Random Glucose 251 H (60-115) mg/dL Calcium 8.2 L D (8.4-10.2) mg/dL Alkaline Phosphatase 187 H (39-117) U/L C-Reactive Protein 17.09 H (< or = 0.50) mg/dL Total Protein 8.7 H (6.5-8.0) g/dL Albumin 2.6 L (3.5-5.0) g/dL 12/18/24 Range/Units 13:23 WBC (4.8-10.8) X10*3/uL RBC (4.60-5.80) X10*6/uL Hgb (14.0-18.0) g/dl Hct (42.0-52.0) % MCH (27.0-33.0) pg MCHC (31.0-36.0) g/dl RDW (11.0-16.0) % Plt Count (160-400) X10*3/uL Immature Gran % (Auto) (0.0-0.4) % Neut % (Auto) (45-73) % Lymph % (Auto) (20-40) % Eos % (Auto) (0-4) % Eos # (Auto) (0.0-0.4) X10*3/uL Abs Immat Gran (auto) (0.00-0.03) X10*3/uL Absolute Neuts (auto) (2.0-8.3) x10*3/uL ESR (0-15) MM/HR PT (10.9-12.4) SEC Sodium (135-145) mmol/L Chloride (96-108) mmol/L BUN (9-16) mg/dL Creatinine (0.5-1.4) mg/dL POC Glucose 184 H (60-115) mg/dL Random Glucose (60-115) mg/dL Calcium (8.4-10.2) mg/dL Alkaline Phosphatase (39-117) U/L C-Reactive Protein (< or = 0.50) mg/dL Total Protein (6.5-8.0) g/dL Albumin (3.5-5.0) g/dL Short CBC 12/17/24 12/18/24 Range/Units 19:23 07:07 WBC 13.3 H 13.0 H (4.8-10.8) X10*3/uL Hgb 8.8 L 7.8 L (14.0-18.0) g/dl Hct 29.1 L 25.4 L (42.0-52.0) % Plt Count 469 H TNP (160-400) X10*3/uL BMP 12/17/24 12/18/24 19:23 07:07 Sodium 132 L 132 L Potassium 3.7 4.3 Chloride 92 L 98 Carbon Dioxide 28 23 BUN 34 H 37 H Creatinine 4.60 H* 4.82 H* Calcium 8.9 8.2 L D Liver Function 12/17/24 Range/Units 19:23 Total Bilirubin 0.4 (0.0-1.0) mg/dL AST 37 (5-37) U/L ALT 11 (0-40) U/L Alkaline Phosphatase 187 H (39-117) U/L Albumin 2.6 L (3.5-5.0) g/dL All other labs normal. Assessment and Plan (1) Diabetic skin ulcer: Status: Acute (2) Diabetic ulcer of right foot: Status: Acute (3) Decubitus ulcer: Status: Acute Plan At present would suggest using Dakin solution dressings q.day to the majority of these wounds. Very unlikely to heal any of these as patient has shown to be noncompliant in his own care and diabetic management. Procedures Date of Service Date of Service: 12/19/24
[2024-12-18] MEDS: 0.9 % Sodium Chloride Flush 3 ML SYRINGE IVFLUSH (15:52)
--- NOTE | 2024-12-18 15:52 | PC.NURSE ---
pt medicated per provider order. otherwise, vss and up to date. nsr on the quality assurance monitor chassis. pt remains on RA w/o difficulty - no sob/wob noted. respirations even/unlabored. pt pending bed assignment. plan of care ongoing. call arcos placed within reach.
[2024-12-18 18:00] VITALS: BP 138/68; PULSE 72; RESP 15; TEMP 36.8; O2SAT 96
[2024-12-18 18:07] LABS: Glucose, Whole Blood 173 mg/dL (60-115)
[2024-12-18] MEDS: Atorvastatin Calcium 40 MG TABLET PO (21:30)
[2024-12-18 21:38] VITALS: BP 114/46; PULSE 76; RESP 12; TEMP 36.9; O2SAT 97
[2024-12-18] MEDS: Insulin Glargine,Hum.rec.anlog 100 UNIT/ML 10 ML VIAL 8 UNIT SUBCUT (21:41)
[2024-12-18 21:42] LABS: Glucose, Whole Blood 130 mg/dL (60-115)
[2024-12-18] MEDS: cefEPime HCl 0.5 GM in 0.9 % Sodium Chloride 50 ML IV (22:14)
[2024-12-19] VITALS (7 sets, daily range): BP systolic 101–118; BP diastolic 52–63; PULSE 65–73; RESP 16–18; TEMP 36.2–36.6; O2SAT 97–100; BMI 26.8
[2024-12-19] MEDS: 0.9 % Sodium Chloride Flush 3 ML SYRINGE IVFLUSH ×4 (05:13→21:46)
[2024-12-19] MEDS: Omeprazole 20 MG CAPSULE.DR PO (05:13)
[2024-12-19 07:42] LABS: Glucose, Whole Blood 100 mg/dL (60-115)
[2024-12-19] MEDS: Calcium Acetate 667 MG CAPSULE 1334 MG PO ×3 (08:34→16:53)
[2024-12-19] MEDS: Torsemide 20 MG TABLET 80 MG PO ×2 (08:34→21:46)
[2024-12-19] MEDS: Sevelamer Carbonate Tablet 800 MG TABLET 1600 MG PO ×3 (08:34→21:44)
[2024-12-19] MEDS: calcitrioL 0.25 MCG CAPSULE 0.5 MCG PO (08:34)
[2024-12-19] MEDS: Buprenorphine/Naloxone 8/2 mg FILM 1 FILM SUBLINGUAL ×3 (08:35→21:44)
[2024-12-19] MEDS: Amiodarone HCL 200 MG TABLET PO (08:35)
[2024-12-19] MEDS: Multivitamin TABLET 1 TAB PO (08:35)
[2024-12-19] MEDS: Midodrine HCl 5 MG TABLET PO ×2 (08:35→21:44)
[2024-12-19] MEDS: oxyCODONE HCl Immed Release 5 MG TABLET 10 MG PO ×4 (08:35→23:28)
[2024-12-19] MEDS: Metoprolol Succinate ER 50 MG TAB.ER.24H PO (08:35)
[2024-12-19 11:19] LABS: Glucose, Whole Blood 229 mg/dL (60-115)
[2024-12-19] MEDS: Insulin Lispro 100 UNIT/ML 3 ML VIAL SUBCUT ×3 (12:06→21:42)
--- NOTE | 2024-12-19 12:28 | HO.PM.IMPN ---
Subjective Subjective Date of Service: 12/19/24 Review of Systems Follow up leg wounds, cellulitis pain to wounds Physical Exam Vital Signs: Vital Signs: Last Vital Signs Temp 97.9 F 12/19/24 07:23 Pulse 65 12/19/24 07:23 Resp 16 12/19/24 07:23 BP 111/60 12/19/24 07:23 Pulse Ox 99 12/19/24 07:23 O2 Del Method Room Air 12/19/24 07:23 O2 Flow Rate 2 12/18/24 21:38 BMI result Body Mass Index 26.8 Objective Data Active Medications Acetaminophen (Acetaminophen 325 Mg Tablet) 650 mg PO Q6H PRN PRN Reason: Pain, Mild 1-3,fever,headache Last Admin: 12/18/24 03:43 Dose: 650 mg Documented By: MANDY Amiodarone HCl (Amiodarone Hcl 200 Mg Tablet) 200 mg PO DAILY [facility] Last Admin: 12/19/24 08:35 Dose: 200 mg Documented By: VICK Atorvastatin Calcium (Atorvastatin Calcium 40 Mg Tablet) 40 mg PO BEDTIME [facility] Last Admin: 12/18/24 21:30 Dose: 40 mg Documented By: JOSHUA Buprenorphine/Naloxone (Buprenorphine/Naloxone 8/2 Mg Film) 1 film SUBLINGUAL TID [facility] Last Admin: 12/19/24 08:35 Dose: 1 film Documented By: VICK Calcitriol (Calcitriol 0.25 Mcg Capsule) 0.5 mcg PO DAILY [facility] Last Admin: 12/19/24 08:34 Dose: 0.5 mcg Documented By: VICK Calcium Acetate (Calcium Acetate 667 Mg Capsule) 1,334 mg PO TIDWM [facility] Last Admin: 12/19/24 08:34 Dose: 1,334 mg Documented By: VICK Calcium Carbonate (Calcium Carbonate 750 Mg Tab.Chew) 750 mg PO Q4H PRN PRN Reason: Heartburn Dextrose (Dextrose 50 % 25 Gm/50 Ml Syringe) 25 gm IVPUSH Q15M PRN; Protocol PRN Reason: per Hypoglycemia Standing Ord. Glucose (Glucose Gel 15 Gm Gel..Gram.) 15 gm PO Q15M PRN; Protocol PRN Reason: per Hypoglycemia Standing Ord. Heparin Sodium (Porcine) (Heparin Sodium,Porcine 5,000 Unit/Ml Vial) 5,000 unit INTRACATH MOWEFR@1645 [facility] Hydromorphone HCl (Hydromorphone Hcl 1 Mg/Ml Syringe) 1 mg IVPUSH Q4H PRN; Protocol PRN Reason: Pain, Severe (Pain Scale 7-10) Last Admin: 12/18/24 18:36 Dose: 1 mg Documented By: MOLINA Cefepime HCl 0.5 gm/ Sodium (Chloride) 50 mls @ 100 mls/hr IV Q24H [facility] Last Infusion: 12/18/24 23:00 Dose: Infused Documented By: JOSHUA Vancomycin HCl 500 mg/ Sodium (Chloride) 110 mls @ 110 mls/hr IV ONCE ONE Stop: 12/20/24 16:59 Insulin Glargine (Insulin Glargine,Hum.Rec.Anlog 100 Unit/Ml 10 Ml Vial) 8 unit SUBCUT BEDTIME [facility] Last Admin: 12/18/24 21:41 Dose: 8 unit Documented By: JOSHUA Insulin Human Lispro (Insulin Lispro 100 Unit/Ml 3 Ml Vial) 0 unit SUBCUT QIDACHS [facility]; Protocol Last Admin: 12/19/24 12:06 Dose: 4 unit Documented By: VICK Magnesium Hydroxide (Milk Of Magnesia 30 Ml Oral.Susp) 30 ml PO DAILY PRN PRN Reason: Constipation Melatonin (Melatonin 3 Mg Tablet) 6 mg PO BEDTIME PRN PRN Reason: Insomnia Metoprolol Succinate (Metoprolol Succinate Er 50 Mg Tab.Er.24h) 50 mg PO DAILY [facility]; Protocol Last Admin: 12/19/24 08:35 Dose: 50 mg Documented By: VICK Midodrine (Midodrine Hcl 5 Mg Tablet) 5 mg PO BID [facility] Last Admin: 12/19/24 08:35 Dose: 5 mg Documented By: VICK Multivitamins/Vitamin C (Multivitamin Tablet) 1 tab PO DAILY [facility] Last Admin: 12/19/24 08:35 Dose: 1 tab Documented By: VICK Omeprazole (Omeprazole 20 Mg Capsule.Dr) 20 mg PO DAILY@0630 [facility] Last Admin: 12/19/24 05:13 Dose: 20 mg Documented By: ZAIRE Ondansetron HCl (Ondansetron Hcl 4 Mg/2 Ml Vial) 4 mg IVPUSH Q8H PRN PRN Reason: Nausea and Vomiting Oxycodone HCl (Oxycodone Hcl Immed Release 5 Mg Tablet) 10 mg PO Q4H PRN PRN Reason: Pain, Moderate(Pain Scale 4-6) Last Admin: 12/19/24 08:35 Dose: 10 mg Documented By: VICK Pharmacy Consult (Consult Rx Vancomycin Dosing) 1 each MISCELLANE DAILY PRN PRN Reason: Consult order Polyethylene Glycol (Polyethylene Glycol 3350 17 Gm Powd.Pack) 17 gm PO DAILY PRN PRN Reason: Constipation Sevelamer Carbonate (Sevelamer Carbonate Tablet 800 Mg Tablet) 1,600 mg PO TID [facility] Last Admin: 12/19/24 08:34 Dose: 1,600 mg Documented By: VICK Sodium Chloride (0.9 % Sodium Chloride Flush 3 Ml Syringe) 3 ml IVFLUSH QSHIFT [facility] Last Admin: 12/19/24 08:35 Dose: 3 ml Documented By: VICK Sodium Hypochlorite (Sodium Hypochlorite 0.5% 473 Ml Solution) 1 appl TOPICAL DAILY [facility] Last Admin: 12/18/24 13:32 Dose: 1 appl Documented By: SAM Torsemide (Torsemide 20 Mg Tablet) 80 mg PO BID [facility]; Protocol Last Admin: 12/19/24 08:34 Dose: 80 mg Documented By: VICK Labs 12/18/24 07:07 12/18/24 07:07 Labs: Laboratory Results - last 24 hr 12/18/24 12/18/24 12/18/24 13:23 18:03 21:37 POC Glucose 184 H 173 H 130 H 12/19/24 12/19/24 07:30 11:15 POC Glucose 100 229 H Microbiology Microbiology Results: Microbiology 12/17/24 19:24 Blood Culture - Preliminary Blood - Venous No growth after 24 hours. 12/17/24 19:22 Blood Culture - Preliminary Blood - Venous No growth after 24 hours. Assessment and Plan (1) Hyperglycemia: Status: Acute Plan Pt is a 44-year-old male with a PMH significant for?ESRD of HD M/W/F, paroxysmal a flutter on Eliquis and amiodarone, insulin-dependent type 2 diabetes, PVD, s/p right BKA, hx of MRSA bacteremia w/ pulmonic valve vegetation, chronic decubitus ulcers, HTN, HLD, and polysubstance use disorder on Suboxone who presents to the ED with?worsening decubitus ulcers and all-over body pain for the past couple of days. Pt will be admitted to the hospital treatment and further evaluation of multiple areas of cellulitis in the setting of worsening chronic decubitus ulcers. Cellulitis in the setting of chronic skin and decubitus ulcers No sepsis: Chronic leukocytosis, no fever, tachycardia, or tachypnea; lactic acid WNL Pt with hx MRSA bacteremia and endocarditis vancomycin and cefepime, started 12/17/2022 Wound care consult pending General surgery consult> rec Dakins solution positioning q.2h Air loss mattress Follow wound cultures ESRD on HD // Missed dialysis friday No significant electrolyte abnormalities Continue torsemide Paroxysmal atrial flutter Hold Eliquis pending General surgery input regarding possible surgical debridement Continue amiodarone and metoprolol Insulin-dependent type 2 diabetes Sliding-scale insulin, Lantus Diabetic diet HLD Continue statin Hx of hypotension Continue midodrine GERD Continue PPI Polysubstance use disorder Continue Suboxone Full Code Attending:?Dr. Cooper DVT Prophylaxis: Pneumatic compression due to possible surgical debridement; resume Eliquis as warranted Quality Stroke Does the patient have a stroke diagnosis?: No VTE Prior VTE?: No VTE Risk Level:: Medical - moderate - high VTE Device Contraindication: N/A - Device Ordered VTE Drug Contraindication: Treatment Not Indicated
[2024-12-19] MEDS: Sodium Hypochlorite 0.5% 473 ML SOLUTION 1 APPL TOPICAL (12:37)
--- NOTE | 2024-12-19 13:56 | P.PNGS_ITS ---
Subjective Subjective Date of Service: 12/19/24 Interval history: Patient was resting comfortably in bed. A clinical trial head who was also present. No acute issues at this time. Physical Exam 2 Vital Signs: Vital Signs: Last Vital Signs Temp 97.9 F 12/19/24 07:23 Pulse 65 12/19/24 07:23 Resp 16 12/19/24 07:23 BP 111/60 12/19/24 07:23 Pulse Ox 99 12/19/24 07:23 O2 Del Method Room Air 12/19/24 07:23 O2 Flow Rate 2 12/18/24 21:38 BMI result Body Mass Index 26.8 Skin: Other: Patient has multiple, multiple dressings involving his right lower extremity, buttock area and back. Objective Data Active Medications Acetaminophen (Acetaminophen 325 Mg Tablet) 650 mg PO Q6H PRN PRN Reason: Pain, Mild 1-3,fever,headache Last Admin: 12/18/24 03:43 Dose: 650 mg Documented By: MANDY Amiodarone HCl (Amiodarone Hcl 200 Mg Tablet) 200 mg PO DAILY [facility] Last Admin: 12/19/24 08:35 Dose: 200 mg Documented By: VICK Atorvastatin Calcium (Atorvastatin Calcium 40 Mg Tablet) 40 mg PO BEDTIME [facility] Last Admin: 12/18/24 21:30 Dose: 40 mg Documented By: JOSHUA Buprenorphine/Naloxone (Buprenorphine/Naloxone 8/2 Mg Film) 1 film SUBLINGUAL TID [facility] Last Admin: 12/19/24 08:35 Dose: 1 film Documented By: VICK Calcitriol (Calcitriol 0.25 Mcg Capsule) 0.5 mcg PO DAILY [facility] Last Admin: 12/19/24 08:34 Dose: 0.5 mcg Documented By: VICK Calcium Acetate (Calcium Acetate 667 Mg Capsule) 1,334 mg PO TIDWM [facility] Last Admin: 12/19/24 12:36 Dose: 1,334 mg Documented By: VICK Calcium Carbonate (Calcium Carbonate 750 Mg Tab.Chew) 750 mg PO Q4H PRN PRN Reason: Heartburn Dextrose (Dextrose 50 % 25 Gm/50 Ml Syringe) 25 gm IVPUSH Q15M PRN; Protocol PRN Reason: per Hypoglycemia Standing Ord. Glucose (Glucose Gel 15 Gm Gel..Gram.) 15 gm PO Q15M PRN; Protocol PRN Reason: per Hypoglycemia Standing Ord. Heparin Sodium (Porcine) (Heparin Sodium,Porcine 5,000 Unit/Ml Vial) 5,000 unit INTRACATH MOWEFR@1645 [facility] Hydromorphone HCl (Hydromorphone Hcl 1 Mg/Ml Syringe) 1 mg IVPUSH Q4H PRN; Protocol PRN Reason: Pain, Severe (Pain Scale 7-10) Last Admin: 12/18/24 18:36 Dose: 1 mg Documented By: MOLINA Cefepime HCl 0.5 gm/ Sodium (Chloride) 50 mls @ 100 mls/hr IV Q24H [facility] Last Infusion: 12/18/24 23:00 Dose: Infused Documented By: JOSHUA Vancomycin HCl 500 mg/ Sodium (Chloride) 110 mls @ 110 mls/hr IV ONCE ONE Stop: 12/20/24 16:59 Insulin Glargine (Insulin Glargine,Hum.Rec.Anlog 100 Unit/Ml 10 Ml Vial) 8 unit SUBCUT BEDTIME [facility] Last Admin: 12/18/24 21:41 Dose: 8 unit Documented By: JOSHUA Insulin Human Lispro (Insulin Lispro 100 Unit/Ml 3 Ml Vial) 0 unit SUBCUT QIDACHS [facility]; Protocol Last Admin: 12/19/24 12:06 Dose: 4 unit Documented By: VICK Magnesium Hydroxide (Milk Of Magnesia 30 Ml Oral.Susp) 30 ml PO DAILY PRN PRN Reason: Constipation Melatonin (Melatonin 3 Mg Tablet) 6 mg PO BEDTIME PRN PRN Reason: Insomnia Metoprolol Succinate (Metoprolol Succinate Er 50 Mg Tab.Er.24h) 50 mg PO DAILY [facility]; Protocol Last Admin: 12/19/24 08:35 Dose: 50 mg Documented By: VICK Midodrine (Midodrine Hcl 5 Mg Tablet) 5 mg PO BID [facility] Last Admin: 12/19/24 08:35 Dose: 5 mg Documented By: VICK Multivitamins/Vitamin C (Multivitamin Tablet) 1 tab PO DAILY [facility] Last Admin: 12/19/24 08:35 Dose: 1 tab Documented By: VICK Omeprazole (Omeprazole 20 Mg Capsule.Dr) 20 mg PO DAILY@0630 [facility] Last Admin: 12/19/24 05:13 Dose: 20 mg Documented By: ZAIRE Ondansetron HCl (Ondansetron Hcl 4 Mg/2 Ml Vial) 4 mg IVPUSH Q8H PRN PRN Reason: Nausea and Vomiting Oxycodone HCl (Oxycodone Hcl Immed Release 5 Mg Tablet) 10 mg PO Q4H PRN PRN Reason: Pain, Moderate(Pain Scale 4-6) Last Admin: 12/19/24 12:37 Dose: 10 mg Documented By: VICK Pharmacy Consult (Consult Rx Vancomycin Dosing) 1 each MISCELLANE DAILY PRN PRN Reason: Consult order Polyethylene Glycol (Polyethylene Glycol 3350 17 Gm Powd.Pack) 17 gm PO DAILY PRN PRN Reason: Constipation Sevelamer Carbonate (Sevelamer Carbonate Tablet 800 Mg Tablet) 1,600 mg PO TID [facility] Last Admin: 12/19/24 08:34 Dose: 1,600 mg Documented By: VICK Sodium Chloride (0.9 % Sodium Chloride Flush 3 Ml Syringe) 3 ml IVFLUSH QSHIFT [facility] Last Admin: 12/19/24 08:35 Dose: 3 ml Documented By: VICK Sodium Hypochlorite (Sodium Hypochlorite 0.5% 473 Ml Solution) 1 appl TOPICAL DAILY [facility] Last Admin: 12/19/24 12:37 Dose: 1 appl Documented By: VICK Torsemide (Torsemide 20 Mg Tablet) 80 mg PO BID [facility]; Protocol Last Admin: 12/19/24 08:34 Dose: 80 mg Documented By: VICK Labs 12/18/24 07:07 12/18/24 07:07 Labs: Laboratory Results - last 24 hr 12/18/24 12/18/24 12/19/24 18:03 21:37 07:30 POC Glucose 173 H 130 H 100 12/19/24 11:15 POC Glucose 229 H Microbiology Microbiology Results: Microbiology 12/17/24 19:24 Blood Culture - Preliminary Blood - Venous No growth after 24 hours. 12/17/24 19:22 Blood Culture - Preliminary Blood - Venous No growth after 24 hours. Procedures Date of Service Date of Service: 12/19/24 Progress Note: A&P Assessment and plan (1) Decubitus ulcer: Status: Acute Plan At present, we will not disturbed dressings or with the patient. We will evaluate wounds early next week. Time Spent With Patient Time: Total time managing care of this patient today ____ minutes. Quality Stroke Does the patient have a stroke diagnosis?: No VTE Prior VTE?: No VTE Risk Level:: Medical - moderate - high VTE Device Contraindication: N/A - Device Ordered VTE Drug Contraindication: Treatment Not Indicated
[2024-12-19] MEDS: HYDROmorphone HCl 1 MG/ML SYRINGE IVPUSH (14:59)
[2024-12-19 16:48] LABS: Glucose, Whole Blood 187 mg/dL (60-115)
[2024-12-19 19:48] LABS: Glucose, Whole Blood 207 mg/dL (60-115)
[2024-12-19] MEDS: Atorvastatin Calcium 40 MG TABLET PO (21:44)
[2024-12-19] MEDS: Insulin Glargine,Hum.rec.anlog 100 UNIT/ML 10 ML VIAL 8 UNIT SUBCUT (21:44)
[2024-12-19] MEDS: cefEPime HCl 0.5 GM in 0.9 % Sodium Chloride 50 ML IV (23:25)
[2024-12-20] MEDS: Omeprazole 20 MG CAPSULE.DR PO (06:07)
[2024-12-20 06:23] LABS: Hemoglobin 7.2 g/dl (14.0-18.0); Mean Corpuscular HGB Conc 31.3 g/dl (31.0-36.0); Mean Corpuscular Hemoglobin 25.9 pg (27.0-33.0); Mean Corpuscular Volume 82.7 fL (80.0-98.0); Mean Platelet Volume 10.2 fL (9.4-12.4); Platelet Count 399 X10*3/uL (160-400); Red Blood Count 2.78 X10*6/uL (4.60-5.80); Red Cell Distribution Width 16.5 % (11.0-16.0); White Blood Count 10.7 X10*3/uL (4.8-10.8)
[2024-12-20 06:40] LABS: Anion Gap 15 (12-20); Blood Urea Nitrogen 54 mg/dL (9-16); Calcium 8.3 mg/dL (8.4-10.2); Carbon Dioxide 25 mmol/L (22-29); Chloride 95 mmol/L (96-108); Creatinine Clr Calc Pharmacy 15.3; Estimated Glomerular Filt Rate 10; Glucose Random 150 mg/dL (60-115); Potassium 4.3 mmol/L (3.3-5.1); Sodium 131 mmol/L (135-145)
[2024-12-20 07:21] VITALS: BP 110/56; PULSE 67; RESP 18; TEMP 36.4; O2SAT 99
[2024-12-20 07:54] LABS: Glucose, Whole Blood 126 mg/dL (60-115)
[2024-12-20 08:33] LABS: Iron 25 mcg/dL (45-160); Percent Iron Saturation 27 % (15-50); Total Iron Binding Capacity 94 mcg/dL (228-428); Unsaturated Iron Binding 69 ug/dL
[2024-12-20] MEDS: Calcium Acetate 667 MG CAPSULE 1334 MG PO ×3 (09:02→16:11)
[2024-12-20] MEDS: Multivitamin TABLET 1 TAB PO (09:02)
[2024-12-20] MEDS: calcitrioL 0.25 MCG CAPSULE 0.5 MCG PO (09:02)
[2024-12-20] MEDS: Amiodarone HCL 200 MG TABLET PO (09:02)
[2024-12-20] MEDS: Buprenorphine/Naloxone 8/2 mg FILM 1 FILM SUBLINGUAL ×3 (09:03→21:37)
[2024-12-20] MEDS: Sevelamer Carbonate Tablet 800 MG TABLET 1600 MG PO ×3 (09:03→21:37)
[2024-12-20] MEDS: Torsemide 20 MG TABLET 80 MG PO ×2 (09:03→21:38)
[2024-12-20] MEDS: Midodrine HCl 5 MG TABLET PO ×2 (09:04→21:37)
[2024-12-20] MEDS: Metoprolol Succinate ER 50 MG TAB.ER.24H PO (09:04)
[2024-12-20] MEDS: HYDROmorphone HCl 1 MG/ML SYRINGE IVPUSH (09:07)
[2024-12-20] MEDS: Sodium Hypochlorite 0.5% 473 ML SOLUTION 1 APPL TOPICAL (09:11)
[2024-12-20] MEDS: 0.9 % Sodium Chloride Flush 3 ML SYRINGE IVFLUSH (09:11)
--- NOTE | 2024-12-20 09:13 | P.PNIM_ITS ---
Subjective Subjective Date of Service: 12/20/24 Review of Systems Follow up leg wounds, cellulitis pain to wounds Physical Exam 2 Vital Signs: Vital Signs: Last Vital Signs Temp 97.6 F 12/20/24 07:21 Pulse 67 12/20/24 07:21 Resp 18 12/20/24 07:21 BP 110/56 L 12/20/24 07:21 Pulse Ox 99 12/20/24 07:21 O2 Del Method Nasal Cannula 12/20/24 07:21 O2 Flow Rate 4 12/20/24 07:21 BMI result Body Mass Index 26.8 Appearing in no acute distress lung sounds are clear to auscultation heart regular rate rhythm, clear S1, S2 positive bowel sounds, abdomen is soft, nontender neuro patient is alert x3, no focal deficits Objective Data Active Medications Acetaminophen (Acetaminophen 325 Mg Tablet) 650 mg PO Q6H PRN PRN Reason: Pain, Mild 1-3,fever,headache Last Admin: 12/18/24 03:43 Dose: 650 mg Documented By: MANDY Amiodarone HCl (Amiodarone Hcl 200 Mg Tablet) 200 mg PO DAILY [facility] Last Admin: 12/20/24 09:02 Dose: 200 mg Documented By: AMINATA Atorvastatin Calcium (Atorvastatin Calcium 40 Mg Tablet) 40 mg PO BEDTIME [facility] Last Admin: 12/19/24 21:44 Dose: 40 mg Documented By: DELIA Buprenorphine/Naloxone (Buprenorphine/Naloxone 8/2 Mg Film) 1 film SUBLINGUAL TID [facility] Last Admin: 12/20/24 09:03 Dose: 1 film Documented By: AMINATA Calcitriol (Calcitriol 0.25 Mcg Capsule) 0.5 mcg PO DAILY [facility] Last Admin: 12/20/24 09:02 Dose: 0.5 mcg Documented By: AMINATA Calcium Acetate (Calcium Acetate 667 Mg Capsule) 1,334 mg PO TIDWM [facility] Last Admin: 12/20/24 09:02 Dose: 1,334 mg Documented By: AMINATA Calcium Carbonate (Calcium Carbonate 750 Mg Tab.Chew) 750 mg PO Q4H PRN PRN Reason: Heartburn Dextrose (Dextrose 50 % 25 Gm/50 Ml Syringe) 25 gm IVPUSH Q15M PRN; Protocol PRN Reason: per Hypoglycemia Standing Ord. Glucose (Glucose Gel 15 Gm Gel..Gram.) 15 gm PO Q15M PRN; Protocol PRN Reason: per Hypoglycemia Standing Ord. Heparin Sodium (Porcine) (Heparin Sodium,Porcine 5,000 Unit/Ml Vial) 5,000 unit INTRACATH MOWEFR@1645 [facility] Hydromorphone HCl (Hydromorphone Hcl 1 Mg/Ml Syringe) 1 mg IVPUSH Q4H PRN; Protocol PRN Reason: Pain, Severe (Pain Scale 7-10) Last Admin: 12/20/24 09:07 Dose: 1 mg Documented By: AMINATA Cefepime HCl 0.5 gm/ Sodium (Chloride) 50 mls @ 100 mls/hr IV Q24H [facility] Last Infusion: 12/20/24 00:14 Dose: Infused Documented By: DELIA Vancomycin HCl 500 mg/ Sodium (Chloride) 110 mls @ 110 mls/hr IV ONCE ONE Stop: 12/20/24 16:59 Insulin Glargine (Insulin Glargine,Hum.Rec.Anlog 100 Unit/Ml 10 Ml Vial) 8 unit SUBCUT BEDTIME [facility] Last Admin: 12/19/24 21:44 Dose: 8 unit Documented By: DELIA Insulin Human Lispro (Insulin Lispro 100 Unit/Ml 3 Ml Vial) 0 unit SUBCUT QIDACHS [facility]; Protocol Last Admin: 12/20/24 07:59 Dose: Not Given Documented By: AMINATA Non-Admin Reason: No Insulin Coverage Magnesium Hydroxide (Milk Of Magnesia 30 Ml Oral.Susp) 30 ml PO DAILY PRN PRN Reason: Constipation Melatonin (Melatonin 3 Mg Tablet) 6 mg PO BEDTIME PRN PRN Reason: Insomnia Metoprolol Succinate (Metoprolol Succinate Er 50 Mg Tab.Er.24h) 50 mg PO DAILY [facility]; Protocol Last Admin: 12/20/24 09:04 Dose: 50 mg Documented By: AMINATA Midodrine (Midodrine Hcl 5 Mg Tablet) 5 mg PO BID [facility] Last Admin: 12/20/24 09:04 Dose: 5 mg Documented By: AMINATA Multivitamins/Vitamin C (Multivitamin Tablet) 1 tab PO DAILY [facility] Last Admin: 12/20/24 09:02 Dose: 1 tab Documented By: AMINATA Omeprazole (Omeprazole 20 Mg Capsule.Dr) 20 mg PO DAILY@0630 [facility] Last Admin: 12/20/24 06:07 Dose: 20 mg Documented By: DELIA Ondansetron HCl (Ondansetron Hcl 4 Mg/2 Ml Vial) 4 mg IVPUSH Q8H PRN PRN Reason: Nausea and Vomiting Oxycodone HCl (Oxycodone Hcl Immed Release 5 Mg Tablet) 10 mg PO Q4H PRN PRN Reason: Pain, Moderate(Pain Scale 4-6) Last Admin: 12/19/24 23:28 Dose: 10 mg Documented By: DELIA Pharmacy Consult (Consult Rx Vancomycin Dosing) 1 each MISCELLANE DAILY PRN PRN Reason: Consult order Polyethylene Glycol (Polyethylene Glycol 3350 17 Gm Powd.Pack) 17 gm PO DAILY PRN PRN Reason: Constipation Sevelamer Carbonate (Sevelamer Carbonate Tablet 800 Mg Tablet) 1,600 mg PO TID [facility] Last Admin: 12/20/24 09:03 Dose: 1,600 mg Documented By: AMINATA Sodium Chloride (0.9 % Sodium Chloride Flush 3 Ml Syringe) 3 ml IVFLUSH QSHIFT [facility] Last Admin: 12/20/24 09:11 Dose: 3 ml Documented By: AMINATA Sodium Hypochlorite (Sodium Hypochlorite 0.5% 473 Ml Solution) 1 appl TOPICAL DAILY [facility] Last Admin: 12/20/24 09:11 Dose: 1 appl Documented By: AMINATA Torsemide (Torsemide 20 Mg Tablet) 80 mg PO BID [facility]; Protocol Last Admin: 12/20/24 09:03 Dose: 80 mg Documented By: AMINATA Labs 12/20/24 05:51 12/20/24 05:51 Labs: Laboratory Results - last 24 hr 12/19/24 12/19/24 12/19/24 11:15 16:32 19:24 MCV MCH MCHC RDW Plt Count MPV Absolute Nucleated RBC Nucleated RBC % (auto) Anion Gap Estim Creat Clear Calc Estimated GFR POC Glucose 229 H 187 H 207 H Random Glucose Calcium Iron TIBC % Saturation Unsat Iron Binding 12/20/24 12/20/24 05:51 07:49 MCV 82.7 MCH 25.9 L MCHC 31.3 RDW 16.5 H Plt Count 399 MPV 10.2 Absolute Nucleated RBC 0.000 Nucleated RBC % (auto) 0.0 Anion Gap 15 Estim Creat Clear Calc 15.3 Estimated GFR 10 POC Glucose 126 H Random Glucose 150 H Calcium 8.3 L Iron 25 L TIBC 94 L % Saturation 27 Unsat Iron Binding 69 Microbiology Microbiology Results: Microbiology 12/17/24 19:24 Blood Culture - Preliminary Blood - Venous No growth after 48 hours. 12/17/24 19:22 Blood Culture - Preliminary Blood - Venous No growth after 48 hours. Assessment and Plan (1) Hyperglycemia: Status: Acute Plan Pt is a 44-year-old male with a PMH significant for?ESRD of HD M/W/F, paroxysmal a flutter on Eliquis and amiodarone, insulin-dependent type 2 diabetes, PVD, s/p right BKA, hx of MRSA bacteremia w/ pulmonic valve vegetation, chronic decubitus ulcers, HTN, HLD, and polysubstance use disorder on Suboxone who presents to the ED with?worsening decubitus ulcers and all-over body pain for the past couple of days. Pt will be admitted to the hospital treatment and further evaluation of multiple areas of cellulitis in the setting of worsening chronic decubitus ulcers. Cellulitis in the setting of chronic skin and decubitus ulcers No sepsis: Chronic leukocytosis, no fever, tachycardia, or tachypnea; lactic acid WNL Pt with hx MRSA bacteremia and endocarditis vancomycin and cefepime, started 12/17/2022 Wound care consult pending General surgery consult> rec Dakins solution positioning q.2h Air loss mattress Follow wound cultures ESRD on HD M/W/F Missed dialysis friday No significant electrolyte abnormalities Continue torsemide Paroxysmal atrial flutter Hold Eliquis pending General surgery input regarding possible surgical debridement Continue amiodarone and metoprolol Insulin-dependent type 2 diabetes Sliding-scale insulin, Lantus Diabetic diet HLD Continue statin Hx of hypotension Continue midodrine GERD Continue PPI Polysubstance use disorder Continue Suboxone Full Code Attending:?Dr. Cooper DVT Prophylaxis: Pneumatic compression due to possible surgical debridement; resume Eliquis as warranted Quality Stroke Does the patient have a stroke diagnosis?: No VTE Prior VTE?: No VTE Risk Level:: Medical - moderate - high VTE Device Contraindication: N/A - Device Ordered VTE Drug Contraindication: Treatment Not Indicated
--- NOTE | 2024-12-20 10:11 | PM.PNGS ---
Subjective Subjective Date of Service: 12/20/24 Interval history: No new complaints No events reported by staff Physical Exam Vital Signs: Vital Signs: Last Vital Signs Temp 97.6 F 12/20/24 07:21 Pulse 67 12/20/24 07:21 Resp 18 12/20/24 07:21 BP 110/56 L 12/20/24 07:21 Pulse Ox 99 12/20/24 07:21 O2 Del Method Nasal Cannula 12/20/24 07:21 O2 Flow Rate 4 12/20/24 07:21 BMI result Body Mass Index 26.8 Const: General: comfortable and no acute distress Resp: Effort & Inspection: normal respiratory effort Cardio: Palpation: normal PMI GI: Palpation (GI): Soft to palpation Skin: Other: Multiple areas of skin breakdown on the torso, hips and thighs Largest open wound on the right groin, superficial eschar, No evidence of ongoing infection or cellulitis Objective Data Active Medications Acetaminophen (Acetaminophen 325 Mg Tablet) 650 mg PO Q6H PRN PRN Reason: Pain, Mild 1-3,fever,headache Last Admin: 12/18/24 03:43 Dose: 650 mg Documented By: MANDY Amiodarone HCl (Amiodarone Hcl 200 Mg Tablet) 200 mg PO DAILY [facility] Last Admin: 12/20/24 09:02 Dose: 200 mg Documented By: AMINATA Atorvastatin Calcium (Atorvastatin Calcium 40 Mg Tablet) 40 mg PO BEDTIME [facility] Last Admin: 12/19/24 21:44 Dose: 40 mg Documented By: DELIA Buprenorphine/Naloxone (Buprenorphine/Naloxone 8/2 Mg Film) 1 film SUBLINGUAL TID [facility] Last Admin: 12/20/24 09:03 Dose: 1 film Documented By: AMINATA Calcitriol (Calcitriol 0.25 Mcg Capsule) 0.5 mcg PO DAILY [facility] Last Admin: 12/20/24 09:02 Dose: 0.5 mcg Documented By: AMINATA Calcium Acetate (Calcium Acetate 667 Mg Capsule) 1,334 mg PO TIDWM [facility] Last Admin: 12/20/24 09:02 Dose: 1,334 mg Documented By: AMINATA Calcium Carbonate (Calcium Carbonate 750 Mg Tab.Chew) 750 mg PO Q4H PRN PRN Reason: Heartburn Dextrose (Dextrose 50 % 25 Gm/50 Ml Syringe) 25 gm IVPUSH Q15M PRN; Protocol PRN Reason: per Hypoglycemia Standing Ord. Glucose (Glucose Gel 15 Gm Gel..Gram.) 15 gm PO Q15M PRN; Protocol PRN Reason: per Hypoglycemia Standing Ord. Heparin Sodium (Porcine) (Heparin Sodium,Porcine 5,000 Unit/Ml Vial) 5,000 unit INTRACATH MOWEFR@1645 [facility] Hydromorphone HCl (Hydromorphone Hcl 1 Mg/Ml Syringe) 1 mg IVPUSH Q4H PRN; Protocol PRN Reason: Pain, Severe (Pain Scale 7-10) Last Admin: 12/20/24 09:07 Dose: 1 mg Documented By: AMINATA Cefepime HCl 0.5 gm/ Sodium (Chloride) 50 mls @ 100 mls/hr IV Q24H [facility] Last Infusion: 12/20/24 00:14 Dose: Infused Documented By: DELIA Vancomycin HCl 500 mg/ Sodium (Chloride) 110 mls @ 110 mls/hr IV ONCE ONE Stop: 12/20/24 16:59 Insulin Glargine (Insulin Glargine,Hum.Rec.Anlog 100 Unit/Ml 10 Ml Vial) 8 unit SUBCUT BEDTIME [facility] Last Admin: 12/19/24 21:44 Dose: 8 unit Documented By: DELIA Insulin Human Lispro (Insulin Lispro 100 Unit/Ml 3 Ml Vial) 0 unit SUBCUT QIDACHS [facility]; Protocol Last Admin: 12/20/24 07:59 Dose: Not Given Documented By: AMINATA Non-Admin Reason: No Insulin Coverage Magnesium Hydroxide (Milk Of Magnesia 30 Ml Oral.Susp) 30 ml PO DAILY PRN PRN Reason: Constipation Melatonin (Melatonin 3 Mg Tablet) 6 mg PO BEDTIME PRN PRN Reason: Insomnia Metoprolol Succinate (Metoprolol Succinate Er 50 Mg Tab.Er.24h) 50 mg PO DAILY [facility]; Protocol Last Admin: 12/20/24 09:04 Dose: 50 mg Documented By: AMINATA Midodrine (Midodrine Hcl 5 Mg Tablet) 5 mg PO BID [facility] Last Admin: 12/20/24 09:04 Dose: 5 mg Documented By: AMINATA Multivitamins/Vitamin C (Multivitamin Tablet) 1 tab PO DAILY [facility] Last Admin: 12/20/24 09:02 Dose: 1 tab Documented By: AMINATA Omeprazole (Omeprazole 20 Mg Capsule.) 20 mg PO DAILY@0630 [facility] Last Admin: 12/20/24 06:07 Dose: 20 mg Documented By: DELIA Ondansetron HCl (Ondansetron Hcl 4 Mg/2 Ml Vial) 4 mg IVPUSH Q8H PRN PRN Reason: Nausea and Vomiting Oxycodone HCl (Oxycodone Hcl Immed Release 5 Mg Tablet) 10 mg PO Q4H PRN PRN Reason: Pain, Moderate(Pain Scale 4-6) Last Admin: 12/19/24 23:28 Dose: 10 mg Documented By: DELIA Pharmacy Consult (Consult Rx Vancomycin Dosing) 1 each MISCELLANE DAILY PRN PRN Reason: Consult order Polyethylene Glycol (Polyethylene Glycol 3350 17 Gm Powd.Pack) 17 gm PO DAILY PRN PRN Reason: Constipation Sevelamer Carbonate (Sevelamer Carbonate Tablet 800 Mg Tablet) 1,600 mg PO TID [facility] Last Admin: 12/20/24 09:03 Dose: 1,600 mg Documented By: AMINATA Sodium Chloride (0.9 % Sodium Chloride Flush 3 Ml Syringe) 3 ml IVFLUSH QSHIFT [facility] Last Admin: 12/20/24 09:11 Dose: 3 ml Documented By: AMINATA Sodium Hypochlorite (Sodium Hypochlorite 0.5% 473 Ml Solution) 1 appl TOPICAL DAILY [facility] Last Admin: 12/20/24 09:11 Dose: 1 appl Documented By: AMINATA Torsemide (Torsemide 20 Mg Tablet) 80 mg PO BID [facility]; Protocol Last Admin: 12/20/24 09:03 Dose: 80 mg Documented By: AMINATA Labs 12/20/24 05:51 12/20/24 05:51 Labs: Laboratory Results - last 24 hr 12/19/24 12/19/24 12/19/24 11:15 16:32 19:24 MCV MCH MCHC RDW Plt Count MPV Absolute Nucleated RBC Nucleated RBC % (auto) Anion Gap Estim Creat Clear Calc Estimated GFR POC Glucose 229 H 187 H 207 H Random Glucose Calcium Iron TIBC % Saturation Unsat Iron Binding 12/20/24 12/20/24 05:51 07:49 MCV 82.7 MCH 25.9 L MCHC 31.3 RDW 16.5 H Plt Count 399 MPV 10.2 Absolute Nucleated RBC 0.000 Nucleated RBC % (auto) 0.0 Anion Gap 15 Estim Creat Clear Calc 15.3 Estimated GFR 10 POC Glucose 126 H Random Glucose 150 H Calcium 8.3 L Iron 25 L TIBC 94 L % Saturation 27 Unsat Iron Binding 69 Microbiology Microbiology Results: Microbiology 12/17/24 19:24 Blood Culture - Preliminary Blood - Venous No growth after 48 hours. 12/17/24 19:22 Blood Culture - Preliminary Blood - Venous No growth after 48 hours. Procedures Date of Service Date of Service: 12/20/24 Progress Note: A&P Assessment and plan (1) Open wound: Status: Acute Assessment and Plan: Multiple open wounds, superficial on the torso and thighs There is 1 open wound on the right medial thigh area and groin with note of a thin eschar I did sharp excisional debridement of this using scissors Area excised was about 3 x 5 cm Dressings replaced - okay to use home dressing or dry dressings on all wounds I placed Dakin's on the right lateral thigh wound because of fibrinous tissue Continue wound care Time Spent With Patient Time: Total time managing care of this patient today ____ minutes. Quality Stroke Does the patient have a stroke diagnosis?: No VTE Prior VTE?: No VTE Risk Level:: Medical - moderate - high VTE Device Contraindication: N/A - Device Ordered VTE Drug Contraindication: Treatment Not Indicated
--- NOTE | 2024-12-20 10:14 | PM.PROC ---
Brief Operative Note Date of procedure: 12/20/24 Pre-op diagnosis: Eschar on open wound on the right thigh Post-op diagnosis: same Procedure: I used fine scissors to do sharp excisional debridement of this eschar on the right medial thigh and groin area Area excised was about 3 x 5 cm This involved full-thickness of the skin Foam dressings applied He tolerated the procedure well He was given Dilaudid prior to procedure
[2024-12-20] MEDS: oxyCODONE HCl Immed Release 5 MG TABLET 10 MG PO ×3 (10:22→21:40)
[2024-12-20 11:38] LABS: Glucose, Whole Blood 207 mg/dL (60-115)
[2024-12-20] MEDS: Insulin Lispro 100 UNIT/ML 3 ML VIAL SUBCUT ×2 (11:54→16:11)
[2024-12-20 11:57] VITALS: O2SAT 97
--- NOTE | 2024-12-20 14:49 | HO.SKINPHOTO ---
Addendum entered by Siria Sales RN 12/21/24 09:28: Left groin Original Note: Pt has multiple open areas skin breakdown. Dr. Cali at bedside this AM recommends superficial wounds to be covered with triad and foam. Coccyx wound lightly packed with alginate, covered with foam. Right lateral leg wound wet to dry with Dakins solution per Dr. Cali. Left TMA and heel DCD and wrapped with gauze. Wound care consult pending. Specialty bed ordered. Coccyx Left TMA Left Heel Back Right groin Right lateral leg
[2024-12-20 16:02] VITALS: BP 110/68; PULSE 67; RESP 12; TEMP 36.4; O2SAT 100
[2024-12-20 16:08] LABS: Glucose, Whole Blood 187 mg/dL (60-115)
--- NOTE | 2024-12-20 16:10 | MHC.CLN ---
NUTRITION CONSULT FOR WOUNDS. PATIENT WITH MULTIPLE WOUNDS INCLUDING STAGE III TO COCCYX. DIET=DIABETIC 2000 KCALS, 2 GRAM SODIUM. ESRD ON HEMODIALYSIS. ADDING ENSURE MAX BID TO PROMOTE WOUND HEALING. SUPPLEMENT PROVIDES 300 KCALS, 60 G PROTEIN. SEE CLINICAL NUTRITION ASSESSMENT 12/20/24.
[2024-12-20] MEDS: Heparin Sodium,Porcine 5,000 UNIT/ML VIAL 5000 UNIT INTRACATH (16:11)
[2024-12-20 16:12] VITALS: BMI 26.8
[2024-12-20 17:38] LABS: Vancomycin Random 19.4 mcg/mL (15-20)
--- NOTE | 2024-12-20 17:52 | HE.PHANOTE ---
Re: Gil Trough returned @ 19.4. Dose held. Next trough 12/22 @ 1645 after dialysis.
[2024-12-20 21:24] LABS: Glucose, Whole Blood 148 mg/dL (60-115)
[2024-12-20 21:25] VITALS: BP 124/60; PULSE 82; RESP 20; TEMP 36.6; O2SAT 95
[2024-12-20] MEDS: Atorvastatin Calcium 40 MG TABLET PO (21:38)
[2024-12-20] MEDS: Insulin Glargine,Hum.rec.anlog 100 UNIT/ML 10 ML VIAL 8 UNIT SUBCUT (21:38)
[2024-12-20] MEDS: cefEPime HCl 0.5 GM in 0.9 % Sodium Chloride 50 ML IV (22:24)
--- NOTE | 2024-12-20 22:29 | PC.NURSE ---
Per Pharmacy IV abx Cefepime dose is 0.5g, give half of 1g vial in 50ml bag.
[2024-12-20 23:22] VITALS: BP 117/59; PULSE 78; RESP 20; TEMP 36.9; O2SAT 94
[2024-12-21] MEDS: 0.9 % Sodium Chloride Flush 3 ML SYRINGE IVFLUSH ×4 (00:01→19:56)
[2024-12-21] MEDS: oxyCODONE HCl Immed Release 5 MG TABLET 10 MG PO ×4 (01:53→18:09)
[2024-12-21] MEDS: Omeprazole 20 MG CAPSULE.DR PO (06:01)
[2024-12-21 07:29] LABS: Glucose, Whole Blood 88 mg/dL (60-115)
[2024-12-21 08:11] VITALS: BP 135/68; PULSE 80; RESP 18; TEMP 37; O2SAT 97
--- NOTE | 2024-12-21 08:25 | HO.PM.IMPN ---
Subjective Subjective Date of Service: 12/21/24 Review of Systems Follow up leg wounds, cellulitis pain to wounds Physical Exam Vital Signs: Vital Signs: Last Vital Signs Temp 98.6 F 12/21/24 08:11 Pulse 80 12/21/24 08:11 Resp 18 12/21/24 08:11 BP 135/68 12/21/24 08:11 Pulse Ox 97 12/21/24 08:11 O2 Del Method Room Air 12/21/24 08:11 O2 Flow Rate 2 12/20/24 23:22 BMI result Body Mass Index 26.8 Appearing in no acute distress lung sounds are clear to auscultation heart regular rate rhythm, clear S1, S2 positive bowel sounds, abdomen is soft, nontender neuro patient is alert x3, no focal deficits Superficial wounds to torso and thighs medial thigh and groin open wound Objective Data Active Medications Acetaminophen (Acetaminophen 325 Mg Tablet) 650 mg PO Q6H PRN PRN Reason: Pain, Mild 1-3,fever,headache Last Admin: 12/18/24 03:43 Dose: 650 mg Documented By: MANDY Amiodarone HCl (Amiodarone Hcl 200 Mg Tablet) 200 mg PO DAILY [facility] Last Admin: 12/20/24 09:02 Dose: 200 mg Documented By: AMINATA Atorvastatin Calcium (Atorvastatin Calcium 40 Mg Tablet) 40 mg PO BEDTIME [facility] Last Admin: 12/20/24 21:38 Dose: 40 mg Documented By: AMINATA Buprenorphine/Naloxone (Buprenorphine/Naloxone 8/2 Mg Film) 1 film SUBLINGUAL TID [facility] Last Admin: 12/20/24 21:37 Dose: 1 film Documented By: AMINATA Calcitriol (Calcitriol 0.25 Mcg Capsule) 0.5 mcg PO DAILY [facility] Last Admin: 12/20/24 09:02 Dose: 0.5 mcg Documented By: AMINATA Calcium Acetate (Calcium Acetate 667 Mg Capsule) 1,334 mg PO TIDWM [facility] Last Admin: 12/20/24 16:11 Dose: 1,334 mg Documented By: AMINATA Calcium Carbonate (Calcium Carbonate 750 Mg Tab.Chew) 750 mg PO Q4H PRN PRN Reason: Heartburn Dextrose (Dextrose 50 % 25 Gm/50 Ml Syringe) 25 gm IVPUSH Q15M PRN; Protocol PRN Reason: per Hypoglycemia Standing Ord. Glucose (Glucose Gel 15 Gm Gel..Gram.) 15 gm PO Q15M PRN; Protocol PRN Reason: per Hypoglycemia Standing Ord. Heparin Sodium (Porcine) (Heparin Sodium,Porcine 5,000 Unit/Ml Vial) 5,000 unit INTRACATH MOWEFR@1645 [facility] Last Admin: 12/20/24 16:11 Dose: 5,000 unit Documented By: AMINATA Hydromorphone HCl (Hydromorphone Hcl 1 Mg/Ml Syringe) 1 mg IVPUSH Q4H PRN; Protocol PRN Reason: Pain, Severe (Pain Scale 7-10) Last Admin: 12/20/24 09:07 Dose: 1 mg Documented By: AMINATA Cefepime HCl 0.5 gm/ Sodium (Chloride) 50 mls @ 100 mls/hr IV Q24H [facility] Last Infusion: 12/20/24 22:54 Dose: Infused Documented By: AMINATA Vancomycin HCl 500 mg/ Sodium (Chloride) 110 mls @ 110 mls/hr IV ONCE ONE Stop: 12/20/24 16:59 Insulin Glargine (Insulin Glargine,Hum.Rec.Anlog 100 Unit/Ml 10 Ml Vial) 8 unit SUBCUT BEDTIME [facility] Last Admin: 12/20/24 21:38 Dose: 8 unit Documented By: AMINATA Insulin Human Lispro (Insulin Lispro 100 Unit/Ml 3 Ml Vial) 0 unit SUBCUT QIDACHS [facility]; Protocol Last Admin: 12/20/24 21:42 Dose: Not Given Documented By: AMINATA Non-Admin Reason: No Insulin Coverage Magnesium Hydroxide (Milk Of Magnesia 30 Ml Oral.Susp) 30 ml PO DAILY PRN PRN Reason: Constipation Melatonin (Melatonin 3 Mg Tablet) 6 mg PO BEDTIME PRN PRN Reason: Insomnia Metoprolol Succinate (Metoprolol Succinate Er 50 Mg Tab.Er.24h) 50 mg PO DAILY [facility]; Protocol Last Admin: 12/20/24 09:04 Dose: 50 mg Documented By: AMINATA Midodrine (Midodrine Hcl 5 Mg Tablet) 5 mg PO BID [facility] Last Admin: 12/20/24 21:37 Dose: 5 mg Documented By: AMINATA Multivitamins/Vitamin C (Multivitamin Tablet) 1 tab PO DAILY [facility] Last Admin: 12/20/24 09:02 Dose: 1 tab Documented By: AMINATA Omeprazole (Omeprazole 20 Mg Capsule.) 20 mg PO DAILY@0630 [facility] Last Admin: 12/21/24 06:01 Dose: 20 mg Documented By: PETE Ondansetron HCl (Ondansetron Hcl 4 Mg/2 Ml Vial) 4 mg IVPUSH Q8H PRN PRN Reason: Nausea and Vomiting Oxycodone HCl (Oxycodone Hcl Immed Release 5 Mg Tablet) 10 mg PO Q4H PRN PRN Reason: Pain, Moderate(Pain Scale 4-6) Last Admin: 12/21/24 06:05 Dose: 10 mg Documented By: PETE Pharmacy Consult (Consult Rx Vancomycin Dosing) 1 each MISCELLANE DAILY PRN PRN Reason: Consult order Polyethylene Glycol (Polyethylene Glycol 3350 17 Gm Powd.Pack) 17 gm PO DAILY PRN PRN Reason: Constipation Sevelamer Carbonate (Sevelamer Carbonate Tablet 800 Mg Tablet) 1,600 mg PO TID [facility] Last Admin: 12/20/24 21:37 Dose: 1,600 mg Documented By: AMINATA Sodium Chloride (0.9 % Sodium Chloride Flush 3 Ml Syringe) 3 ml IVFLUSH QSHIFT [facility] Last Admin: 12/21/24 00:01 Dose: 3 ml Documented By: PETE Sodium Hypochlorite (Sodium Hypochlorite 0.5% 473 Ml Solution) 1 appl TOPICAL DAILY [facility] Last Admin: 12/20/24 09:11 Dose: 1 appl Documented By: AMINATA Torsemide (Torsemide 20 Mg Tablet) 80 mg PO BID [facility]; Protocol Last Admin: 12/20/24 21:38 Dose: 80 mg Documented By: AMINATA Labs 12/20/24 05:51 12/20/24 05:51 Labs: Laboratory Results - last 24 hr 12/20/24 12/20/24 12/20/24 05:51 11:33 16:04 POC Glucose 207 H 187 H Iron 25 L TIBC 94 L % Saturation 27 Unsat Iron Binding 69 Random Vancomycin 12/20/24 12/20/24 12/21/24 16:49 21:18 07:21 POC Glucose 148 H 88 Iron TIBC % Saturation Unsat Iron Binding Random Vancomycin 19.4 Assessment and Plan (1) Hyperglycemia: Status: Acute Plan 44-year-old male with a PMH significant for?ESRD of HD M/W/F, paroxysmal a flutter on Eliquis and amiodarone, insulin-dependent type 2 diabetes, PVD, s/p right BKA, hx of MRSA bacteremia w/ pulmonic valve vegetation, chronic decubitus ulcers, HTN, HLD, and polysubstance use disorder on Suboxone who presented to the ED with?worsening decubitus ulcers all-over body pain. Pt admitted to the hospital treatment and further evaluation of multiple areas of cellulitis in the setting of worsening chronic decubitus ulcers. Cellulitis in the setting of chronic skin and decubitus ulcers No sepsis: Chronic leukocytosis, no fever, tachycardia, or tachypnea; lactic acid WNL Pt with hx MRSA bacteremia and endocarditis vancomycin and cefepime, started 12/17/2022 Wound care consult pending General surgery consult> rec Dakins solution to lateral thigh wound d/t fibrinous tissue, s/p debridement of eschar to right medial thigh area and groin with note of a thin eschar positioning q.2h Air loss mattress Follow wound cultures ESRD on HD M/W/F No significant electrolyte abnormalities Continue torsemide Paroxysmal atrial flutter Continue amiodarone and metoprolol Eliquis Insulin-dependent type 2 diabetes Sliding-scale insulin, Lantus Diabetic diet HLD Continue statin Hx of hypotension Continue midodrine GERD Continue PPI Polysubstance use disorder Continue Suboxone Full Code Attending:?Dr. Blum DVT Prophylaxis: [employer] [facility] Stroke Does the patient have a stroke diagnosis?: No VTE Prior VTE?: No VTE Risk Level:: Medical - moderate - high VTE Device Contraindication: N/A - Device Ordered VTE Drug Contraindication: Treatment Not Indicated
[2024-12-21] MEDS: Torsemide 20 MG TABLET 80 MG PO ×2 (08:33→19:55)
[2024-12-21] MEDS: Sevelamer Carbonate Tablet 800 MG TABLET 1600 MG PO ×3 (08:33→19:55)
[2024-12-21] MEDS: Calcium Acetate 667 MG CAPSULE 1334 MG PO ×3 (08:33→17:57)
[2024-12-21] MEDS: Multivitamin TABLET 1 TAB PO (08:33)
[2024-12-21] MEDS: calcitrioL 0.25 MCG CAPSULE 0.5 MCG PO (08:34)
[2024-12-21] MEDS: Metoprolol Succinate ER 50 MG TAB.ER.24H PO (08:34)
[2024-12-21] MEDS: Amiodarone HCL 200 MG TABLET PO (08:34)
[2024-12-21] MEDS: Midodrine HCl 5 MG TABLET PO ×2 (08:34→19:54)
[2024-12-21] MEDS: Buprenorphine/Naloxone 8/2 mg FILM 1 FILM SUBLINGUAL ×3 (08:34→20:51)
[2024-12-21] MEDS: Sodium Hypochlorite 0.5% 473 ML SOLUTION 1 APPL TOPICAL (09:18)
[2024-12-21] MEDS: Apixaban 5 MG TABLET PO ×2 (09:18→19:54)
[2024-12-21 09:39] LABS: Hemoglobin 7.2 g/dl (14.0-18.0); Mean Corpuscular Hemoglobin 25.4 pg (27.0-33.0); Mean Corpuscular Volume 84.5 fL (80.0-98.0); Mean Platelet Volume 10.2 fL (9.4-12.4); Platelet Count 383 X10*3/uL (160-400); Red Blood Count 2.84 X10*6/uL (4.60-5.80); Red Cell Distribution Width 16.7 % (11.0-16.0); White Blood Count 9.2 X10*3/uL (4.8-10.8)
[2024-12-21 10:01] LABS: Anion Gap 11 (12-20); Blood Urea Nitrogen 33 mg/dL (9-16); Calcium 8.1 mg/dL (8.4-10.2); Carbon Dioxide 29 mmol/L (22-29); Chloride 98 mmol/L (96-108); Creatinine Clr Calc Pharmacy 23.2; Estimated Glomerular Filt Rate 16; Glucose Random 117 mg/dL (60-115); Potassium 3.8 mmol/L (3.3-5.1); Sodium 134 mmol/L (135-145)
[2024-12-21 12:06] LABS: Glucose, Whole Blood 198 mg/dL (60-115)
[2024-12-21] MEDS: Insulin Lispro 100 UNIT/ML 3 ML VIAL SUBCUT ×3 (12:32→19:55)
--- NOTE | 2024-12-21 13:00 | PM.CNNEP ---
History of Present Illness Reason for Consult Consult date: 12/21/24 Chief Complaint Chief complaint: Weakness History of Present Illness Narrative: 44-year-old male with ESRD of HD M/W/F, insulin-dependent type 2 diabetes, PVD, s/p right BKA, hx of MRSA bacteremia w/ pulmonic valve vegetation, chronic decubitus ulcers, HTN, HLD, and polysubstance use disorder on Suboxone who presents to the ED with?worsening decubitus ulcers and all-over body pain for the past couple of days. Pt recently had septic shock from possible unresolved MRSA bacteremia and new infection from dermatologic source. Given extent of patient's chronic decubitus ulcers and need for wound care he was offered to be discharged to rehab for wound care and medical management, but pt refused STR and instead elected to go home with services. Pt reports that he never received any visits from either VNA or wound care since discharge. Ran out of topical wound care cream a few days ago and since then wounds have worsened with increased pain and purulent discharge. Pt reports has felt more fatigued and tired. No fever or chills. Denies nausea, vomiting, abdominal pain. Denies chest pain/pressure, palpitations. No SOB or difficulty breathing. In the ER pt was febrile up to 100.9, vitals otherwise stable and WNL. Labs were significant for sodium 132, BUN 34, creatinine 4.60, and CRP 17.09. Chronic leukocytosis of 13.3 around baseline. Stable normocytic anemia of 8.8/29.1. Lactic acid WNL at 1.5. Chronically elevated alk-phos of 187. Albumin chronically low at 2.6. Tested negative for flu, COVID, RSV. CXR showed no acute process. CT of right femur showed no focal fluid collection or bony abnormality suggestive of osteomyelitis, but did show multifocal subcutaneous edema with proximal edema has improved since prior CT of pelvis. EKG demonstrated normal sinus rhythm without evidence of significant ST elevations or depressions. Pt was treated with acetaminophen, IVF, Dilaudid, vancomycin, and Zosyn. Pt will be admitted to the hospital treatment and further evaluation of multiple areas of cellulitis in the setting of worsening chronic decubitus ulcers. Nephrology was consulted to assist in his clinical care duirng his current hospital stay Review of Systems Review of Systems Yes all other systems are reviewed and are negative PMFSH Past Medical History Medical History (Updated 12/21/24 @ 13:04 by Shmuel Cagle MD) Open wound Opioid use disorder, severe, dependence Bacteremia Volume overload Paroxysmal atrial flutter Cardiomyopathy Pericardial effusion Atrial flutter Need for acute hemodialysis Leukocytosis Anemia Anemia Transfusion history Atrial flutter, paroxysmal COPD (chronic obstructive pulmonary disease) Constipation Callus of foot Seizure Polysubstance abuse CKD (chronic kidney disease) stage 3, GFR 30-59 ml/min Foot osteomyelitis, left Amputation of toe of right foot Diabetic ulcer of right foot Hyperglycemia due to type 2 diabetes mellitus Renal failure Sleep apnea Diabetes HTN (hypertension) Surgical History Surgical History Hx of right BKA History of surgical procedure (~04/24/23) Social History Social History Household Members: Other Household Members Other:: mother Housing: Apartment Do you presently have visiting nurse or other home services: No Unable to assess alcohol history related to: Unable to respond Alcohol intake: former Comment: bilateral wrist restraints/propofol drip for airway safety Patient Tobacco Use Status: Current everyday Tobacco user Tobacco use type: Cigarette Cigarette Packs Per Day: 0.5 Cigarettes Per Day: 6 Years Smoked: 33 e-Cigarette/Vaping Use: Currently Using Second Hand Smoke Exposure: Yes Substance Use Type: Crack/Cocaine, Heroin, Marijuana and Opiates service: No Meds Allergies Allergy/AdvReac Type Severity Reaction Status Date / Time No Known Allergies Allergy Verified 12/17/24 18:47 [No Known Allergies*] Active Medications: Current Medications Acetaminophen (Acetaminophen 325 Mg Tablet) 650 mg PO Q6H PRN PRN Reason: Pain, Mild 1-3,fever,headache Last Admin: 12/18/24 03:43 Dose: 650 mg Amiodarone HCl (Amiodarone Hcl 200 Mg Tablet) 200 mg PO DAILY [facility] Last Admin: 12/21/24 08:34 Dose: 200 mg Apixaban (Apixaban 5 Mg Tablet) 5 mg PO BID [facility] Last Admin: 12/21/24 09:18 Dose: 5 mg Atorvastatin Calcium (Atorvastatin Calcium 40 Mg Tablet) 40 mg PO BEDTIME [facility] Last Admin: 12/20/24 21:38 Dose: 40 mg Buprenorphine/Naloxone (Buprenorphine/Naloxone 8/2 Mg Film) 1 film SUBLINGUAL TID [facility] Last Admin: 12/21/24 08:34 Dose: 1 film Calcitriol (Calcitriol 0.25 Mcg Capsule) 0.5 mcg PO DAILY [facility] Last Admin: 12/21/24 08:34 Dose: 0.5 mcg Calcium Acetate (Calcium Acetate 667 Mg Capsule) 1,334 mg PO TIDWM [facility] Last Admin: 12/21/24 12:07 Dose: 1,334 mg Calcium Carbonate (Calcium Carbonate 750 Mg Tab.Chew) 750 mg PO Q4H PRN PRN Reason: Heartburn Dextrose (Dextrose 50 % 25 Gm/50 Ml Syringe) 25 gm IVPUSH Q15M PRN; Protocol PRN Reason: per Hypoglycemia Standing Ord. Glucose (Glucose Gel 15 Gm Gel..Gram.) 15 gm PO Q15M PRN; Protocol PRN Reason: per Hypoglycemia Standing Ord. Heparin Sodium (Porcine) (Heparin Sodium,Porcine 5,000 Unit/Ml Vial) 5,000 unit INTRACATH MOWEFR@1645 [facility] Last Admin: 12/20/24 16:11 Dose: 5,000 unit Hydromorphone HCl (Hydromorphone Hcl 1 Mg/Ml Syringe) 1 mg IVPUSH Q4H PRN; Protocol PRN Reason: Pain, Severe (Pain Scale 7-10) Last Admin: 12/20/24 09:07 Dose: 1 mg Cefepime HCl 0.5 gm/ Sodium (Chloride) 50 mls @ 100 mls/hr IV Q24H [facility] Last Infusion: 12/20/24 22:54 Dose: Infused Vancomycin HCl 500 mg/ Sodium (Chloride) 110 mls @ 110 mls/hr IV ONCE ONE Stop: 12/20/24 16:59 Insulin Glargine (Insulin Glargine,Hum.Rec.Anlog 100 Unit/Ml 10 Ml Vial) 8 unit SUBCUT BEDTIME [facility] Last Admin: 12/20/24 21:38 Dose: 8 unit Insulin Human Lispro (Insulin Lispro 100 Unit/Ml 3 Ml Vial) 0 unit SUBCUT QIDACHS [facility]; Protocol Last Admin: 12/21/24 12:32 Dose: 2 unit Magnesium Hydroxide (Milk Of Magnesia 30 Ml Oral.Susp) 30 ml PO DAILY PRN PRN Reason: Constipation Melatonin (Melatonin 3 Mg Tablet) 6 mg PO BEDTIME PRN PRN Reason: Insomnia Metoprolol Succinate (Metoprolol Succinate Er 50 Mg Tab.Er.24h) 50 mg PO DAILY [facility]; Protocol Last Admin: 12/21/24 08:34 Dose: 50 mg Midodrine (Midodrine Hcl 5 Mg Tablet) 5 mg PO BID [facility] Last Admin: 12/21/24 08:34 Dose: 5 mg Multivitamins/Vitamin C (Multivitamin Tablet) 1 tab PO DAILY [facility] Last Admin: 12/21/24 08:33 Dose: 1 tab Omeprazole (Omeprazole 20 Mg Capsule.Dr) 20 mg PO DAILY@0630 [facility] Last Admin: 12/21/24 06:01 Dose: 20 mg Ondansetron HCl (Ondansetron Hcl 4 Mg/2 Ml Vial) 4 mg IVPUSH Q8H PRN PRN Reason: Nausea and Vomiting Oxycodone HCl (Oxycodone Hcl Immed Release 5 Mg Tablet) 10 mg PO Q4H PRN PRN Reason: Pain, Moderate(Pain Scale 4-6) Last Admin: 12/21/24 12:09 Dose: 10 mg Pharmacy Consult (Consult Rx Vancomycin Dosing) 1 each MISCELLANE DAILY PRN PRN Reason: Consult order Polyethylene Glycol (Polyethylene Glycol 3350 17 Gm Powd.Pack) 17 gm PO DAILY PRN PRN Reason: Constipation Sevelamer Carbonate (Sevelamer Carbonate Tablet 800 Mg Tablet) 1,600 mg PO TID [facility] Last Admin: 12/21/24 08:33 Dose: 1,600 mg Sodium Chloride (0.9 % Sodium Chloride Flush 3 Ml Syringe) 3 ml IVFLUSH QSHIFT [facility] Last Admin: 12/21/24 08:42 Dose: 3 ml Sodium Hypochlorite (Sodium Hypochlorite 0.5% 473 Ml Solution) 1 appl TOPICAL DAILY [facility] Last Admin: 12/21/24 09:18 Dose: 1 appl Torsemide (Torsemide 20 Mg Tablet) 80 mg PO BID [facility]; Protocol Last Admin: 12/21/24 08:33 Dose: 80 mg Home Medications ?Medication ?Instructions ?Recorded ?Confirmed ?Last Taken ?Type insulin lispro 100 unit/mL See Protocol subcut TIDAC 09/28/24 12/17/24 11/04/24 History subcutaneous pen (Humalog KwikPen (U-100) Insulin) melatonin 5 mg tablet 5 mg PO BEDTIME PRN insomnia 11/12/17/24 11/04/24 History insulin glargine 100 unit/mL (3 10 unit subcut BEDTIME 12/17/24 12/17/24 Unknown History mL) subcutaneous pen sevelamer carbonate 800 mg tablet 1,600 mg PO TID 12/17/24 12/17/24 Unknown History Physical Exam Vital Signs: Last Vital Signs Temp 98.6 F 12/21/24 08:11 Pulse 80 12/21/24 08:11 Resp 18 12/21/24 08:11 BP 135/68 12/21/24 08:11 Pulse Ox 97 12/21/24 08:11 O2 Del Method Room Air 12/21/24 08:11 O2 Flow Rate 2 12/20/24 23:22 BMI result Body Mass Index 26.8 Const General: no acute distress Orientation/consciousness: patient oriented x3 Eyes EOM: EOMs intact bilaterally Resp Auscultation: diminished lung sounds Cardio Rate: regular rate GI Palpation (GI): Soft to palpation Neuro General: patient oriented x3 Results Lab Results 12/21/24 09:04 12/21/24 09:04 Lab results: Chemistry 12/20/24 12/21/24 05:51 09:04 Sodium 131 L 134 L Potassium 4.3 3.8 Carbon Dioxide 25 29 BUN 54 H 33 H Creatinine 6.02 H* 3.97 H Calcium 8.3 L 8.1 L Hematology 12/20/24 12/21/24 05:51 09:04 WBC 10.7 9.2 Hgb 7.2 L 7.2 L Plt Count [id number] Assessment and Plan (1) Anemia in chronic kidney disease (CKD): Qualifiers: Chronic kidney disease stage: on chronic dialysis Qualified Code(s): N18.6 - End stage renal disease; D63.1 - Anemia in chronic kidney disease; Z99.2 - Dependence on renal dialysis Status: Acute (2) ESRD (end stage renal disease) on dialysis: Status: Acute Plan Usually gets HD on MWF ( [facility])-Dr Cagle Next HD tomorrow; Continued vol optimization on HD Antibiotics as guided by ID; Procrit [id number] U MWF Renal Diet; Phos binder with meals; Shall F/U Procedures Date of Service Date of Service: 12/21/24
--- NOTE | 2024-12-21 15:57 | MHC.CM.PN ---
[place] MET WITH PT AND SPOKE WITH MOTHER ARLEN VIA TELEPHONE. PT IS DECLINING SNF CARE AND WOULD LIKE TO RETURN HOME WITH FAMILY SUPPORT FOR WOUND CARE. MOTHER IS AGREEABLE TO THIS PLAN. STUDIO CONTROL OPERATOR UPDATED. [place] CALLED [facility] TO TRY AND SET UP A TELE-HEALTH VISIT WITH PROVIDER TO RE-ESTABLISH. PER STAFF, HE HAD NEVER BEEN ESTABLISHED WITH THE PRACTICE. MEDICAL INFORMATION PROVIDED TO STAFF WHO WILL PUT ON WAITING LIST AND FORWARD MEDICAL STATUS TO COORDINATOR. THE COORDINATOR WILL REACH OUT TO PT TO SET UP TELE-HEALTH NEW PT APPT. PT IS AWARE THE [facility] WILL NOT BE ABLE TO GO IN WITHOUT A SIGNING MD.
[2024-12-21 16:00] VITALS: BP 123/58; PULSE 72; RESP 18; TEMP 36.7; O2SAT 97
[2024-12-21 16:38] LABS: Glucose, Whole Blood 260 mg/dL (60-115)
[2024-12-21] MEDS: HYDROmorphone HCl 1 MG/ML SYRINGE IVPUSH (17:05)
--- NOTE | 2024-12-21 18:14 | HO.WOUND ---
Wound Consult: Initial 44yr old?male admitted to [facility] on 12/17/24 - See progress notes and H&P for detailed history.? Wound consult placed for Multiple wounds present on admission.? Patient agreeable to assessment and photo documentation.? Patient is well known to this caption writer. The patient reports after his discharge from here last month he immediately went to [facility] until last when he was discharged from there as well. He arrived to [facility] on Friday. When asked why he has not attempted home life - he reports he hasn't felt well at the time of each discharge. His was at the bedside today and his mother was not present. They report he will again refuse SNF due to location of [place]. They report his and mother do not own vehicles and would not be able to see him. There are several social barrier to success at home at this time and based on my conversation with the patient he does not appear to have insight into his roles to the barrier to success at home. While at the bedside the patient was eating candy / cough drops and [place] drink. His sugar was over 200 and he does not feel it has to do with his diet choices. Patient and educated on benefits of sugar control on wound healing. He continues with serval wounds throughout his body - see photos uploaded to chart. Overall The wounds are improving. Given the patients level of pain the wound care takes significant time to perform. Left back and mid back all with adherent yellow white slough - they all appear to have granulation buds noted with in the base of the wound bed. I recommend triad to allow for moist autolytic debridement and dry ABD pad dressings. Left Heel - Dry black necrotic tissue - stable - no drainage no odor noted - recommend Durafiber AG and dry gauze wrap. Bilateral Groin - Improving full thickness wound neds - pink moist tissue with thin slough noted -recommend Triad to wound beds. Right thigh - Recommend Durafiber AG for moisture management Right Lateral Thigh - Dakins packing for continued debridement. Coccyx Etiology: ? Stage 4 Pressure injury -?Present on Admission Wound Bed:Previously probed down to bone - currently red pink moist wound bed - Full thickness tissue loss Drainage / Odor:none noted at this time Edges: ? unattached Corazon wound: MASD and friction Pain: pain reported Goals of Treatment: ?Durafiber AG for moisture management Buttock - improving MASD noted- previous stage 3 pressure injury noted - currently just appears to be MASD related Right Back Side and Right Hip - Wounds beds remain with adherent yellow slough - appear to be decreasing in size. Triad for autolytic debridement Left Heel Etiology: ?Unstagable Pressure injury -?Present on Admission Wound Bed: adherent necrotic tissue black Drainage / Odor: None Edges: ? unattached Corazon wound: dry thickly callused - dry and lifting Pain: pain reported Goals of Treatment: Durafiber for autolytic debridement Bilateral Groin Etiology: ?MASD (Moisture Associated Skin Damage) Wound Bed: Resurfacing Full thickness tissue injury -clean pink moist tissue thin veil of slough noted Edges: ? irregular Corazon wound: ? MASD no fluctuance no induration no erythema noted Goals of Treatment: ? Triad for autolytic debridement and moist wound healing Right Lateral Thigh - Stage 3 Pressure Injury - adherent yellow slough - no odor some flowers green drainage noted - recommend continued use of Dakin per General Surgery team recommendations. Agility Pulsate bed in use. Recommendations: 1. Turn and Reposition every 2 hours and as needed for patient comfort.? Use pillows or wedges to support off loading positions. 2. Off Load all bony prominences with use of pillows and heel boots if needed.? Apply Preventative foams where needed. ? 3. Monitor for incontinence and moisture control, use barrier creams when needed for prevention and treatment. Recommend Condom cath for urinary containment as patient is incontinent of urine at times. 4. Provide adequate and supplemental nutrition.? 5. Continue Pulsate from Agility bed. 6. Maintain blood glucose levels per Providers order. 7.Bilateral Groin, Right Side Mid Back and Buttock- Off Load Pressure with Q2hr turns and use of pillows. Cleanse with PH balance spray or wipes, pat dry. ?Apply thin layer of Triad to wound bed - only pat and dab no scrub and rub when soiling occurs. Reapply thin layer PRN after each episode of incontinence. Do not use foam dressing at this time. May cover right back side with ABD or gauze dressing. change every other day. 8. Coccyx and Left Heel - Lightly pack with Durafiber AG, triad to periwound, cover with ABD pad. Change daily. 9. Right Hip - Cleanse with Dakin's moist gauze, pat dry. Apply Triad to periwound, Pack wound bed with Dakins moist gauze cover with Dry gauze, ABD pad and Tape. Change daily. Recommend follow up out patient Wound Clinic at [address] [place] [id number] and to call for an appointment at time of discharge. [phone].? Re-consult wound care Nurse for wound deterioration or wound changes.
[2024-12-21 19:27] LABS: Glucose, Whole Blood 232 mg/dL (60-115)
[2024-12-21] MEDS: Insulin Glargine,Hum.rec.anlog 100 UNIT/ML 10 ML VIAL 8 UNIT SUBCUT (19:55)
[2024-12-21] MEDS: Atorvastatin Calcium 40 MG TABLET PO (20:00)
[2024-12-21] MEDS: Melatonin 3 MG TABLET 6 MG PO (20:54)
[2024-12-21] MEDS: cefEPime HCl 0.5 GM in 0.9 % Sodium Chloride 50 ML IV (22:59)
[2024-12-21 23:36] VITALS: BP 123/57; PULSE 80; RESP 18; TEMP 36.6; O2SAT 100
[2024-12-22] MEDS: oxyCODONE HCl Immed Release 5 MG TABLET 10 MG PO ×4 (00:37→20:10)
[2024-12-22] MEDS: Omeprazole 20 MG CAPSULE.DR PO (05:43)
[2024-12-22] MEDS: calcitrioL 0.25 MCG CAPSULE 0.5 MCG PO (07:18)
[2024-12-22] MEDS: Metoprolol Succinate ER 50 MG TAB.ER.24H PO (07:18)
[2024-12-22] MEDS: Midodrine HCl 5 MG TABLET PO ×2 (07:18→19:59)
[2024-12-22] MEDS: Torsemide 20 MG TABLET 80 MG PO ×2 (07:18→19:58)
[2024-12-22] MEDS: Amiodarone HCL 200 MG TABLET PO (07:19)
[2024-12-22] MEDS: 0.9 % Sodium Chloride Flush 3 ML SYRINGE IVFLUSH ×2 (07:19→19:59)
[2024-12-22] MEDS: Apixaban 5 MG TABLET PO ×2 (07:19→19:59)
[2024-12-22] MEDS: Calcium Acetate 667 MG CAPSULE 1334 MG PO ×2 (07:19→11:40)
[2024-12-22] MEDS: Sevelamer Carbonate Tablet 800 MG TABLET 1600 MG PO ×3 (07:19→19:59)
[2024-12-22] MEDS: Buprenorphine/Naloxone 8/2 mg FILM 1 FILM SUBLINGUAL ×3 (07:19→21:02)
[2024-12-22] MEDS: Multivitamin TABLET 1 TAB PO (07:19)
[2024-12-22 07:25] VITALS: BP 114/56; PULSE 70; RESP 18; TEMP 36; O2SAT 98
--- NOTE | 2024-12-22 07:28 | P.DS_ITS ---
DS: Providers Provider Date of Service: 12/22/24 <Vesna Bennett NP - Last Filed: 12/22/24 08:58> 12/23/24 <LEDY Fenton - Last Filed: 12/23/24 08:40> Date of admission: 12/17/24 21:13 <Vesna Bennett NP - Last Filed: 12/22/24 08:58> Date of discharge: 12/22/24 <Vesna Bennett NP - Last Filed: 12/22/24 08:58> 12/23/24 <LEDY Fenton - Last Filed: 12/23/24 08:40> Primary care physician: Cristina Stover MD <Vesna Bennett NP - Last Filed: 12/22/24 08:58> Consults: 12/17/24 21:14 Consult to Nephrology Routine Consulting Provider: [facility] Reason for consultation: esrd on hd M/W/F, missed today 12/17/24 21:31 Consult to General Surgery Routine Consulting Provider: [facility] Reason for consultation: possible debridement of skin ulcer 12/18/24 15:21 Consult to Wound Care Routine Reason for consultation: Multiple decubitus dye buttock and thigh <Vesna Bennett NP - Last Filed: 12/22/24 08:58> Attending physician on discharge: Nik Blum <LEDY Fenton - Last Filed: 12/23/24 08:40> Discharging clinician: Cristina Bermudez <LEDY Fenton - Last Filed: 12/23/24 08:40> DS: Diagnosis Discharge Diagnosis (1) Anemia in chronic kidney disease (CKD): Status: Acute <Vesna Bennett NP - Last Filed: 12/22/24 08:58> (2) ESRD (end stage renal disease) on dialysis: Status: Acute <Vesna Bennett NP - Last Filed: 12/22/24 08:58> DS: Summary Hospital Course Hospital Course: History and physical as per admitting provider. Pt is a 44-year-old male with a PMH significant for?ESRD of HD M/W/F, insulin-dependent type 2 diabetes, PVD, s/p right BKA, hx of MRSA bacteremia w/ pulmonic valve vegetation, chronic decubitus ulcers, HTN, HLD, and polysubstance use disorder on Suboxone who presents to the ED with?worsening decubitus ulcers and all-over body pain for the past couple of days. Pt recently discharged after a prolonged hospital stay from 11/05-11/25 where he was treated for septic shock from possible unresolved MRSA bacteremia and new infection from dermatologic source. Given extent of patient's chronic decubitus ulcers and need for wound care he was offered to be discharged to rehab for wound care and medical management, but pt refused STR and instead elected to go home with services. Pt reports that he never received any visits from either VNA or wound care since discharge. Ran out of topical wound care cream a few days ago and since then wounds have worsened with increased pain and purulent discharge. Pt reports has felt more fatigued and tired. No fever or chills. Denies nausea, vomiting, abdominal pain. Denies chest pain/pressure, palpitations. No SOB or difficulty breathing. Of note, pt missed dialysis today due to not feeling well. In the ED pt was febrile up to 100.9, vitals otherwise stable and WNL. Labs were significant for sodium 132, BUN 34, creatinine 4.60, and CRP 17.09. Chronic leukocytosis of 13.3 around baseline. Stable normocytic anemia of 8.8/29.1. Lactic acid WNL at 1.5. Chronically elevated alk-phos of 187. Albumin chronically low at 2.6. Tested negative for flu, COVID, RSV. CXR showed no acute process. CT of right femur showed no focal fluid collection or bony abnormality suggestive of osteomyelitis, but did show multifocal subcutaneous edema with proximal edema has improved since prior CT of pelvis. EKG demonstrated normal sinus rhythm without evidence of significant ST elevations or depressions. Pt was treated with acetaminophen, IVF, Dilaudid, vancomycin, and Zosyn. Pt will be admitted to the hospital treatment and further evaluation of multiple areas of cellulitis in the setting of worsening chronic decubitus ulcers. 44-year-old man treated for chronic decubitus ulcers with mild cellulitis. With history of MRSA bacteremia and endocarditis. Patient was started on vancomycin and cefepime, seen evaluated by General surgery and had debridement of eschar to right medial thigh area and groin, seen evaluated by wound care nurse as well. Patient unfortunately does not have a primary care provider and has a history of substance abuse on Suboxone therefore limited amounts of rehab facilities for patient however a rehab facility near [place] was offered to him however he declined. His mother stated that she would take care of his wounds at home. Case management discussed with patient the importance of scheduling an appointment with the primary care provider so at least he can have visiting nurse services at home. Patient will go home with wound care supplies and 7 days of antibiotics. End-stage renal disease. Friday and Friday. Continue torsemide Paroxysmal atrial fibrillation. Continue amiodarone, metoprolol and Eliquis Diabetes mellitus type 2. Continue home medications Hyperlipidemia. Continue statin History of hypotension. Continue midodrine GERD. Continue PPI Polysubstance abuse. Continue Suboxone <Vesna Bennett NP - Last Filed: 12/22/24 08:58> Time Attestation Discharge Coordination Time (in mins): 47 <Vesna Bennett NP - Last Filed: 12/22/24 08:58> Quality: Safe Use of Opioids Does Pt have an Active Cancer Diagnosis on the Problem List?: No <Vesna Bennett NP - Last Filed: 12/22/24 08:58> Quality: Stroke Does the patient have a stroke diagnosis?: No <Vesna Bennett NP - Last Filed: 12/22/24 08:58> Physical Exam 2 Vital Signs: Vital Signs: Last Vital Signs Temp 96.8 F 12/22/24 07:25 Pulse 70 12/22/24 07:25 Resp 18 12/22/24 07:25 BP 114/56 L 12/22/24 07:25 Pulse Ox 98 12/22/24 07:25 O2 Del Method Room Air 12/22/24 07:25 O2 Flow Rate 2 12/20/24 23:22 BMI result Body Mass Index 26.8 <Vesna Bennett NP - Last Filed: 12/22/24 08:58> Appearing in no acute distress head is normocephalic atraumatic eyes pupils are PERRLA sclera is anicteric mouth throat mucous membranes are intact and moist neck is supple no lymphadenopathy, no JVD noted lung sounds are clear to auscultation heart regular rate rhythm, clear S1, S2 positive bowel sounds, abdomen is soft, nontender neuro patient is alert x3, no focal deficits Multiple ulcers throughout the patient's body <Vesna Bennett NP - Last Filed: 12/22/24 08:58> Const: General: cooperative, alert and awake <LEDY Fenton - Last Filed: 12/23/24 08:40> Nutritional Appearance: average body habitus <LEDY Fenton - Last Filed: 12/23/24 08:40> Orientation/consciousness: patient oriented x3 <LEDY Fenton - Last Filed: 12/23/24 08:40> Neuro: General: patient oriented x3 <LEDY Fenton - Last Filed: 12/23/24 08:40> DS: Data Data Completed and Pending Completed studies during hospitalization [Text1]: Procedures Assistance with Respiratory Ventilation, Less than 24 Consecutive Hours, Continuous Positive Airway Pressure (11/05/24) Detachment at Right 2nd Toe, Complete, Open Approach (04/18/23) Drainage of Left Pleural Cavity with Drainage Device, Percutaneous Approach (10/04/24) Drainage of Left Pleural Cavity, Percutaneous Approach (09/21/24) Excision of Left Foot Skin, External Approach (11/05/24) Excision of Male Perineum, Open Approach (11/05/24) Excision of Right Foot Subcutaneous Tissue and Fascia, Open Approach (04/18/23) Excision of Right Upper Leg Subcutaneous Tissue and Fascia, Open Approach (11/05/24) Fluoroscopy of Superior Vena Cava using Low Osmolar Contrast, Guidance (04/18/23) Insertion of Endotracheal Airway into Trachea, Via Natural or Artificial Opening (09/21/24) Insertion of Infusion Device into Right Atrium, Percutaneous Approach (10/04/24) Insertion of Infusion Device into Superior Vena Cava, Percutaneous Approach (10/04/24) Insertion of Tunneled Vascular Access Device into Chest Subcutaneous Tissue and Fascia, Percutaneous Approach (10/04/24) Introduction of Vasopressor into Peripheral Vein, Percutaneous Approach (11/05/24) Performance of Urinary Filtration, Intermittent, Less than 6 Hours Per Day (11/05/24) Transfusion of Nonautologous Red Blood Cells into Peripheral Vein, Percutaneous Approach (11/05/24) Ultrasonography of Superior Vena Cava, Guidance (10/04/24) <Vesna Bennett NP - Last Filed: 12/22/24 08:58> Labs on day of discharge: Laboratory Results - last 24 hr 12/21/24 12/21/24 12/21/24 07:21 09:04 11:57 WBC 9.2 RBC 2.84 L Hgb 7.2 L Hct 24.0 L MCV 84.5 MCH 25.4 L MCHC 30.0 L RDW 16.7 H Plt Count 383 MPV 10.2 Absolute Nucleated RBC 0.000 Nucleated RBC % (auto) 0.0 Sodium 134 L Potassium 3.8 Chloride 98 Carbon Dioxide 29 Anion Gap 11 L BUN 33 H Creatinine 3.97 H Estim Creat Clear Calc 23.2 Estimated GFR 16 POC Glucose 88 198 H Random Glucose 117 H Calcium 8.1 L 12/21/24 12/21/24 16:34 19:22 WBC RBC Hgb Hct MCV MCH MCHC RDW Plt Count MPV Absolute Nucleated RBC Nucleated RBC % (auto) Sodium Potassium Chloride Carbon Dioxide Anion Gap BUN Creatinine Estim Creat Clear Calc Estimated GFR POC Glucose 260 H 232 H Random Glucose Calcium Preliminary micro results at discharge 12/17/24 19:24 Blood Culture - Preliminary Blood - Venous No growth after 48 hours. 12/17/24 19:22 Blood Culture - Preliminary Blood - Venous No growth after 48 hours. <Vesna Bennett NP - Last Filed: 12/22/24 08:58> Discharge Plan Discharge Anticipated Discharge Date/Time: 12/23/24 08:37 <Vesna Bennett NP - Last Filed: 12/22/24 08:58> Patient Disposition: Home, Self-Care <Vesna Bennett NP - Last Filed: 12/22/24 08:58> Discharge Diagnosis: Cellulitis Decubitus ulcers End-stage renal disease on dialysis <Vesna Bennett NP - Last Filed: 12/22/24 08:58> Cellulitis Decubitus ulcers End-stage renal disease on dialysis <LEDY Fenton - Last Filed: 12/23/24 08:40> Referrals: Cristina Stover MD [Primary Care Provider] - 1 Week <Vesna Bennett NP - Last Filed: 12/22/24 08:58> Discharge Medications: New doxycycline hyclate 100 mg tablet 100 mg PO BID Qty: 14 0RF oxycodone 10 mg tablet 10 mg PO Q8H PRN (Reason: pain (scale score 7-10)) Qty: 12 0RF Rx Instructions: Partial Fill upon patient request. Continued buprenorphine-naloxone 8-2 mg film 1 film sublingual TID Qty: 42 1RF metoprolol succinate 50 mg tablet extended release 24 hr 50 mg PO DAILY Qty: 90 0RF midodrine 5 mg Tablet 5 mg PO BID Qty: 60 0RF torsemide 20 mg Tablet 80 mg PO BID Qty: 180 0RF Protocol: Hold for SBP< HOLD for SBP < : 100 multivitamin Tablet 1 tab PO DAILY Qty: 30 0RF atorvastatin 40 mg tablet 40 mg PO BEDTIME Qty: 30 0RF amiodarone 200 mg tablet 200 mg PO DAILY Qty: 90 0RF omeprazole 20 mg capsule,delayed release(DR/EC) 20 mg PO DAILY@0630 Qty: 30 0RF calcitriol 0.25 mcg Capsule 0.5 mcg PO DAILY Qty: 60 0RF calcium acetate(phosphat bind) 667 mg Capsule 1,334 mg PO TIDWM Qty: 120 0RF (DME) pen needle, diabetic 32 gauge x 1/4 needle Qty: 100 0RF Rx Instructions: Use four times a day or as directed. Eliquis 5 mg Tablet 5 mg PO BID Qty: 180 0RF (DME) Dakins solution 1/4 strength 500ml See Rx Instructions .Route .MEDSUPPLY Qty: 1 0RF Rx Instructions: As directed insulin lispro [Humalog KwikPen Insulin] 100 unit/mL insulin pen See Protocol subcut TIDAC Protocol: Insulin Correction Scale Less than or equal to 110 ---- Give (units): 0 111 to 150 Give (units): 0 151 to 200 Give (units): 3 201 to 250 Give (units): 5 251 to 300 Give (units): 8 301 to 350 Give (units): 10 Greater than 350 Give (units): 15 Call MD if Blood Glucose > : 350 melatonin 5 mg tablet 5 mg PO BEDTIME PRN (Reason: insomnia) (DME) FreeStyle Lite Strips Strip Qty: 100 0RF Rx Instructions: Test four times a day or as directed. (DME) blood-glucose meter Kit Qty: 1 0RF Rx Instructions: As Directed (DME) lancets [FreeStyle Lancets] 28 gauge misc Qty: 100 0RF Rx Instructions: Test four times a day or as directed. polyethylene glycol 3350 17 gram Powder In Packet 17 g PO DAILY PRN (Reason: Constipation) Qty: 120 0RF oxycodone 5 mg Tablet 10 mg PO Q12H PRN (Reason: Pain, Moderate(Pain Scale 4-6)) Qty: 20 0RF Rx Instructions: Partial Fill upon patient request. sevelamer carbonate 800 mg tablet 1,600 mg PO TID insulin glargine 100 unit/mL (3 mL) insulin pen 10 unit subcut BEDTIME <Vesna Bennett NP - Last Filed: 12/22/24 08:58> Discharge Orders: Discharge Order (Routine); Ordered 12/23/24 Ordered By: Cristina Bermudez <Vesna Bennett NP - Last Filed: 12/22/24 08:58> Diet: Advance to usual diet <Vesna Bennett NP - Last Filed: 12/22/24 08:58> Advance to usual diet <LEDY Fenton - Last Filed: 12/23/24 08:40> Activity on Discharge: As tolerated <Vesna Bennett NP - Last Filed: 12/22/24 08:58> As tolerated <LEDY Fenton - Last Filed: 12/23/24 08:40> Stand Alone Forms: Patient Portal Discharge page <Vesna Bennett NP - Last Filed: 12/22/24 08:58> Print Language: Liberian <Vesna Bennett NP - Last Filed: 12/22/24 08:58> Activity Restrictions/Additional Instructions: Topical Wound Care Recommendations: Ensure you are taking in adequate and supplemental nutrition.? Maintain blood glucose levels per Providers order. Bilateral Groin, Right Side / Mid Back and Buttock- Off Load Pressure with every 2 hour turns and use of pillows. Cleanse with PH balance spray or wipes, pat dry. ?Apply thin layer of Triad to wound bed - only pat and dab no scrub and rub when soiling occurs. Reapply thin layer as needed after each episode of incontinence. May cover right back side with ABD or gauze dressing. Change every other day. Coccyx and Left Heel - Lightly pack with Durafiber AG, triad to periwound, cover with ABD pad. Change every other day or if coccyx dressing is soiled. Right Hip - Cleanse with Dakin's moist gauze, pat dry. Apply Triad to periwound, Pack wound bed with Dakins moist gauze cover with Dry gauze, ABD pad and Tape. Change daily. Recommend follow up out patient Wound Clinic at [address] [place] [address] and to call for an appointment at time of discharge. [phone].? <Vesna Bennett NP - Last Filed: 12/22/24 08:58> Care Plan Goals: Follow wound care orders <Vesna Bennett NP - Last Filed: 12/22/24 08:58> Health Concerns: Cellulitis Decubitus ulcers End-stage renal disease on dialysis <Vesna Bennett NP - Last Filed: 12/22/24 08:58> Plan of Treatment: Follow-up with primary care provider when appointment is scheduled Take all medications as prescribed call to schedule follow up appointment at wound care clinic when able wound care as above <Vesna Bennett NP - Last Filed: 12/22/24 08:58> Assessment: See discharge summary <Vesna Bennett NP - Last Filed: 12/22/24 08:58> Patient Instructions: Chronic Wounds (DC) <Vesna Bennett NP - Last Filed: 12/22/24 08:58>
[2024-12-22 07:47] LABS: Glucose, Whole Blood 128 mg/dL (60-115)
--- NOTE | 2024-12-22 09:28 | P.PNIM_ITS ---
Subjective Subjective Date of Service: 12/22/24 Review of Systems Follow up leg wounds, cellulitis pain to wounds Physical Exam 2 Vital Signs: Vital Signs: Last Vital Signs Temp 96.8 F 12/22/24 07:25 Pulse 70 12/22/24 07:25 Resp 18 12/22/24 07:25 BP 114/56 L 12/22/24 07:25 Pulse Ox 98 12/22/24 07:25 O2 Del Method Room Air 12/22/24 07:25 O2 Flow Rate 2 12/20/24 23:22 BMI result Body Mass Index 26.8 Appearing in no acute distress lung sounds are clear to auscultation heart regular rate rhythm, clear S1, S2 positive bowel sounds, abdomen is soft, nontender neuro patient is alert x3, no focal deficits Objective Data Active Medications Acetaminophen (Acetaminophen 325 Mg Tablet) 650 mg PO Q6H PRN PRN Reason: Pain, Mild 1-3,fever,headache Last Admin: 12/18/24 03:43 Dose: 650 mg Documented By: MANDY Amiodarone HCl (Amiodarone Hcl 200 Mg Tablet) 200 mg PO DAILY COUNT INCLUDES THE [facility] Last Admin: 12/22/24 07:19 Dose: 200 mg Documented By: KAI Apixaban (Apixaban 5 Mg Tablet) 5 mg PO BID COUNT INCLUDES THE [facility] Last Admin: 12/22/24 07:19 Dose: 5 mg Documented By: KAI Atorvastatin Calcium (Atorvastatin Calcium 40 Mg Tablet) 40 mg PO BEDTIME COUNT INCLUDES THE [facility] Last Admin: 12/21/24 20:00 Dose: 40 mg Documented By: JOSELIN Buprenorphine/Naloxone (Buprenorphine/Naloxone 8/2 Mg Film) 1 film SUBLINGUAL TID COUNT INCLUDES THE [facility] Last Admin: 12/22/24 07:19 Dose: 1 film Documented By: KAI Calcitriol (Calcitriol 0.25 Mcg Capsule) 0.5 mcg PO DAILY COUNT INCLUDES THE [facility] Last Admin: 12/22/24 07:18 Dose: 0.5 mcg Documented By: KAI Calcium Acetate (Calcium Acetate 667 Mg Capsule) 1,334 mg PO TIDWM COUNT INCLUDES THE [facility] Last Admin: 12/22/24 07:19 Dose: 1,334 mg Documented By: KAI Calcium Carbonate (Calcium Carbonate 750 Mg Tab.Chew) 750 mg PO Q4H PRN PRN Reason: Heartburn Dextrose (Dextrose 50 % 25 Gm/50 Ml Syringe) 25 gm IVPUSH Q15M PRN; Protocol PRN Reason: per Hypoglycemia Standing Ord. Glucose (Glucose Gel 15 Gm Gel..Gram.) 15 gm PO Q15M PRN; Protocol PRN Reason: per Hypoglycemia Standing Ord. Heparin Sodium (Porcine) (Heparin Sodium,Porcine 5,000 Unit/Ml Vial) 5,000 unit INTRACATH MOWEFR@1645 COUNT INCLUDES THE [facility] Last Admin: 12/20/24 16:11 Dose: 5,000 unit Documented By: AMINATA Hydromorphone HCl (Hydromorphone Hcl 1 Mg/Ml Syringe) 1 mg IVPUSH Q4H PRN; Protocol PRN Reason: Pain, Severe (Pain Scale 7-10) Last Admin: 12/21/24 17:05 Dose: 1 mg Documented By: HARI Cefepime HCl 0.5 gm/ Sodium (Chloride) 50 mls @ 100 mls/hr IV Q24H COUNT INCLUDES THE [facility] Last Infusion: 12/21/24 23:35 Dose: Infused Documented By: JOSELIN Vancomycin HCl 500 mg/ Sodium (Chloride) 110 mls @ 110 mls/hr IV ONCE ONE Stop: 12/20/24 16:59 Insulin Glargine (Insulin Glargine,Hum.Rec.Anlog 100 Unit/Ml 10 Ml Vial) 8 unit SUBCUT BEDTIME COUNT INCLUDES THE [facility] Last Admin: 12/21/24 19:55 Dose: 8 unit Documented By: JOSELIN Insulin Human Lispro (Insulin Lispro 100 Unit/Ml 3 Ml Vial) 0 unit SUBCUT QIDACHS COUNT INCLUDES THE [facility]; Protocol Last Admin: 12/22/24 07:49 Dose: Not Given Documented By: VICK Non-Admin Reason: No Insulin Coverage Magnesium Hydroxide (Milk Of Magnesia 30 Ml Oral.Susp) 30 ml PO DAILY PRN PRN Reason: Constipation Melatonin (Melatonin 3 Mg Tablet) 6 mg PO BEDTIME PRN PRN Reason: Insomnia Last Admin: 12/21/24 20:54 Dose: 6 mg Documented By: JOSELIN Metoprolol Succinate (Metoprolol Succinate Er 50 Mg Tab.Er.24h) 50 mg PO DAILY COUNT INCLUDES THE [facility]; Protocol Last Admin: 12/22/24 07:18 Dose: 50 mg Documented By: KAI Midodrine (Midodrine Hcl 5 Mg Tablet) 5 mg PO BID COUNT INCLUDES THE [facility] Last Admin: 12/22/24 07:18 Dose: 5 mg Documented By: KAI Multivitamins/Vitamin C (Multivitamin Tablet) 1 tab PO DAILY COUNT INCLUDES THE [facility] Last Admin: 12/22/24 07:19 Dose: 1 tab Documented By: KAI Omeprazole (Omeprazole 20 Mg Capsule.Dr) 20 mg PO DAILY@0630 COUNT INCLUDES THE [facility] Last Admin: 12/22/24 05:43 Dose: 20 mg Documented By: JOSELIN Ondansetron HCl (Ondansetron Hcl 4 Mg/2 Ml Vial) 4 mg IVPUSH Q8H PRN PRN Reason: Nausea and Vomiting Oxycodone HCl (Oxycodone Hcl Immed Release 5 Mg Tablet) 10 mg PO Q4H PRN PRN Reason: Pain, Moderate(Pain Scale 4-6) Last Admin: 12/22/24 07:18 Dose: 10 mg Documented By: KAI Pharmacy Consult (Consult Rx Vancomycin Dosing) 1 each MISCELLANE DAILY PRN PRN Reason: Consult order Polyethylene Glycol (Polyethylene Glycol 3350 17 Gm Powd.Pack) 17 gm PO DAILY PRN PRN Reason: Constipation Sevelamer Carbonate (Sevelamer Carbonate Tablet 800 Mg Tablet) 1,600 mg PO TID COUNT INCLUDES THE [facility] Last Admin: 12/22/24 07:19 Dose: 1,600 mg Documented By: KAI Sodium Chloride (0.9 % Sodium Chloride Flush 3 Ml Syringe) 3 ml IVFLUSH QSHIFT COUNT INCLUDES THE [facility] Last Admin: 12/22/24 07:19 Dose: 3 ml Documented By: KAI Sodium Hypochlorite (Sodium Hypochlorite 0.5% 473 Ml Solution) 1 appl TOPICAL DAILY COUNT INCLUDES THE [facility] Last Admin: 12/21/24 09:18 Dose: 1 appl Documented By: AMINATA Torsemide (Torsemide 20 Mg Tablet) 80 mg PO BID COUNT INCLUDES THE [facility]; Protocol Last Admin: 12/22/24 07:18 Dose: 80 mg Documented By: KAI Labs 12/21/24 09:04 12/21/24 09:04 Labs: Laboratory Results - last 24 hr 12/21/24 12/21/24 12/21/24 09:04 11:57 16:34 MCV 84.5 MCH 25.4 L MCHC 30.0 L RDW 16.7 H Plt Count 383 MPV 10.2 Absolute Nucleated RBC 0.000 Nucleated RBC % (auto) 0.0 Anion Gap 11 L Estim Creat Clear Calc 23.2 Estimated GFR 16 POC Glucose 198 H 260 H Random Glucose 117 H Calcium 8.1 L 12/21/24 12/22/24 19:22 07:27 MCV MCH MCHC RDW Plt Count MPV Absolute Nucleated RBC Nucleated RBC % (auto) Anion Gap Estim Creat Clear Calc Estimated GFR POC Glucose 232 H 128 H Random Glucose Calcium Assessment and Plan (1) Hyperglycemia: Status: Acute Plan 44-year-old male with a PMH significant for?ESRD of HD M/W/F, paroxysmal a flutter on Eliquis and amiodarone, insulin-dependent type 2 diabetes, PVD, s/p right BKA, hx of MRSA bacteremia w/ pulmonic valve vegetation, chronic decubitus ulcers, HTN, HLD, and polysubstance use disorder on Suboxone who presented to the ED with?worsening decubitus ulcers all-over body pain. Pt admitted to the hospital treatment and further evaluation of multiple areas of cellulitis in the setting of worsening chronic decubitus ulcers. Cellulitis in the setting of chronic skin and decubitus ulcers No sepsis: Chronic leukocytosis, no fever, tachycardia, or tachypnea; lactic acid WNL Pt with hx MRSA bacteremia and endocarditis vancomycin and cefepime, started 12/17/2022 Wound care consult pending General surgery consult> rec Dakins solution to lateral thigh wound d/t fibrinous tissue, s/p debridement of eschar to right medial thigh area and groin with note of a thin eschar positioning q.2h Air loss mattress Follow wound cultures ESRD on HD M/W/F No significant electrolyte abnormalities Continue torsemide Paroxysmal atrial flutter Continue amiodarone and metoprolol Eliquis Insulin-dependent type 2 diabetes Sliding-scale insulin, Lantus Diabetic diet HLD Continue statin Hx of hypotension Continue midodrine GERD Continue PPI Polysubstance use disorder Continue Suboxone Full Code DVT Prophylaxis: Eliquis Quality Stroke Does the patient have a stroke diagnosis?: No VTE Prior VTE?: No VTE Risk Level:: Medical - moderate - high VTE Device Contraindication: N/A - Device Ordered VTE Drug Contraindication: Treatment Not Indicated
[2024-12-22 11:24] LABS: Glucose, Whole Blood 167 mg/dL (60-115)
[2024-12-22] MEDS: Insulin Lispro 100 UNIT/ML 3 ML VIAL SUBCUT ×2 (11:41→21:02)
[2024-12-22] MEDS: HYDROmorphone HCl 1 MG/ML SYRINGE IVPUSH (11:41)
[2024-12-22] MEDS: Sodium Hypochlorite 0.5% 473 ML SOLUTION 1 APPL TOPICAL (11:42)
--- NOTE | 2024-12-22 12:19 | MHC.CM.PN ---
EMR REVIEWED AND PER MD ROUNDS, PT WILL GO TO HD HERE AT 4 PM AND THEN WILL DC IN THE AM. MOTHER ARLEN UPDATED AND IN AGREEMENT WITH PLAN. PT CONTINUES TO DECLINE A SNF. BLS TRANSPORT PRE-BOOKED FOR 9:30 AM 12/23/24 VIA [facility]. CM WILL FOLLOW FOR ANY CHANGE TO PLAN.
--- NOTE | 2024-12-22 13:01 | P.PNNP_ITS ---
Subjective Subjective Date of Service: 12/22/24 Interval history: All recent data reviewed. Due HD today Physical Exam 2 Vital Signs: Vital Signs: Last Vital Signs Temp 96.8 F 12/22/24 07:25 Pulse 70 12/22/24 07:25 Resp 18 12/22/24 07:25 BP 114/56 L 12/22/24 07:25 Pulse Ox 98 12/22/24 07:25 O2 Del Method Room Air 12/22/24 07:25 O2 Flow Rate 2 12/20/24 23:22 BMI result Body Mass Index 26.8 Const: General: no acute distress Orientation/consciousness: patient oriented x3 Eyes: EOM: EOMs intact bilaterally Resp: Auscultation: diminished lung sounds Cardio: Rate: regular rate GI: Palpation (GI): Soft to palpation Neuro: General: patient oriented x3 Objective Data Labs 12/21/24 09:04 12/21/24 09:04 Labs: Laboratory Results - last 24 hr 12/21/24 12/21/24 12/22/24 16:34 19:22 07:27 POC Glucose 260 H 232 H 128 H 12/22/24 11:11 POC Glucose 167 H Microbiology Microbiology Results: Microbiology 12/17/24 19:24 Blood - Venous Blood Culture - Preliminary No growth after 48 hours. 12/17/24 19:22 Blood - Venous Blood Culture - Preliminary No growth after 48 hours. Procedures Date of Service Date of Service: 12/22/24 Assessment & Plan Assessment and plan (1) ESRD (end stage renal disease) on dialysis: Status: Acute Plan Usually gets HD on MWF ( [facility]PT[facility])-Dr Cagle Next HD today; Continued vol optimization on HD Antibiotics as guided by ID; Procrit 62591 U MWF Renal Diet; Phos binder with meals; Shall F/U Progress Note: Quality Stroke Does the patient have a stroke diagnosis?: No
--- NOTE | 2024-12-22 13:01 | MHC.CLN ---
F/U PATIENT WITH MULTIPLE WOUNDS INCLUDING STAGE IV TO COCCYX. SEE WOUND RN NOTE 12/21. DIET=DIABETIC 2000 KCALS, 2 GRAM SODIUM. ESRD ON HEMODIALYSIS. ADDED ENSURE MAX BID TO PROMOTE WOUND HEALING. SUPPLEMENT PROVIDES 300 KCALS, 60 G PROTEIN. INTAKE AT MOST MEALS 75-100%. FOLLOW FOR PO INTAKE AND WOUND HEALING.
[2024-12-22 15:29] VITALS: BP 124/58; PULSE 81; RESP 18; TEMP 36.6; O2SAT 96
[2024-12-22 18:58] LABS: Vancomycin Random 10.4 mcg/mL (15-20)
[2024-12-22] MEDS: Atorvastatin Calcium 40 MG TABLET PO (19:59)
[2024-12-22] MEDS: vancomycin HCL 500 MG in 0.9 % Sodium Chloride 100 ML 110 MG IV (20:00)
[2024-12-22 20:36] LABS: Glucose, Whole Blood 217 mg/dL (60-115)
[2024-12-22] MEDS: Insulin Glargine,Hum.rec.anlog 100 UNIT/ML 10 ML VIAL 8 UNIT SUBCUT (21:03)
[2024-12-22] MEDS: cefEPime HCl 0.5 GM in 0.9 % Sodium Chloride 50 ML IV (22:32)
[2024-12-22 23:42] VITALS: BP 113/55; PULSE 81; RESP 18; TEMP 36.4; O2SAT 100
[2024-12-23] MEDS: oxyCODONE HCl Immed Release 5 MG TABLET 10 MG PO ×2 (01:17→07:42)
[2024-12-23] MEDS: Omeprazole 20 MG CAPSULE.DR PO (05:33)
[2024-12-23 06:48] VITALS: PULSE 72; RESP 18; TEMP 36.8; O2SAT 97
[2024-12-23 06:49] VITALS: BP 119/58; PULSE 71; RESP 17; TEMP 36.8; O2SAT 97
[2024-12-23 07:15] LABS: Estimated Average Glucose 163 mg/dL; Hemoglobin A1C 116.2404 umol/L; Hemoglobin A1c % 7.3 % (<6.0); Total Hemoglobin (HGBA1C) 2067.0288 umol/L
[2024-12-23 07:20] LABS: Glucose, Whole Blood 95 mg/dL (60-115)
[2024-12-23] MEDS: Amiodarone HCL 200 MG TABLET PO (07:41)
[2024-12-23] MEDS: Apixaban 5 MG TABLET PO (07:41)
[2024-12-23] MEDS: Multivitamin TABLET 1 TAB PO (07:41)
[2024-12-23] MEDS: Midodrine HCl 5 MG TABLET PO (07:41)
[2024-12-23] MEDS: Sevelamer Carbonate Tablet 800 MG TABLET 1600 MG PO (07:41)
[2024-12-23] MEDS: calcitrioL 0.25 MCG CAPSULE 0.5 MCG PO (07:42)
[2024-12-23] MEDS: Calcium Acetate 667 MG CAPSULE 1334 MG PO (07:42)
[2024-12-23] MEDS: Metoprolol Succinate ER 50 MG TAB.ER.24H PO (07:42)
[2024-12-23] MEDS: Buprenorphine/Naloxone 8/2 mg FILM 1 FILM SUBLINGUAL (07:42)
[2024-12-23] MEDS: Torsemide 20 MG TABLET 80 MG PO (07:42)
--- NOTE | 2024-12-23 08:51 | PM.PNNEP ---
Subjective Subjective Date of Service: 12/23/24 Interval history: Events noted Physical Exam Vital Signs: Vital Signs: Last Vital Signs Temp 98.2 F 12/23/24 06:49 Pulse 71 12/23/24 06:49 Resp 17 12/23/24 06:49 BP 119/58 L 12/23/24 06:49 Pulse Ox 97 12/23/24 06:49 O2 Del Method Room Air 12/23/24 06:49 O2 Flow Rate 2 12/22/24 23:42 BMI result Body Mass Index 26.8 Const: General: no acute distress Orientation/consciousness: patient oriented x3 Eyes: EOM: EOMs intact bilaterally Resp: Auscultation: diminished lung sounds Cardio: Rate: regular rate GI: Palpation (GI): Soft to palpation Neuro: General: patient oriented x3 Objective Data Labs 12/21/24 09:04 12/21/24 09:04 Labs: Laboratory Results - last 24 hr 12/22/24 12/22/24 12/22/24 11:11 18:33 20:32 POC Glucose 167 H 217 H Estimat Average Glucose 163 Hemoglobin A1c % 7.3 H Random Vancomycin 10.4 L 12/23/24 07:07 POC Glucose 95 Estimat Average Glucose Hemoglobin A1c % Random Vancomycin Microbiology Microbiology Results: Microbiology 12/17/24 19:24 Blood - Venous Blood Culture - Final No growth after 5 days. 12/17/24 19:22 Blood - Venous Blood Culture - Final No growth after 5 days. Procedures Date of Service Date of Service: 12/23/24 Assessment & Plan Assessment and plan (1) ESRD (end stage renal disease) on dialysis: Status: Acute Plan No signs of uremia Usually gets HD on MWF ( [place] [facility])- Next HD tomorrow; Continued vol optimization on HD Antibiotics as guided by ID; Procrit 58902 U MWF Renal Diet; Phos binder with meals; Shall F/U Time Spent With Patient Time: Total time managing care of this patient today ____ minutes. Progress Note: Quality Stroke Does the patient have a stroke diagnosis?: No
--- NOTE | 2024-12-23 09:23 | MHC.CM.PN ---
Addendum entered by Lou Goodman 12/23/24 10:53: SHOSHANA GUPTA UPDATED ON TODAY'S DC. PT WILL RESUME HD 12/24/24. Original Note: DP: PT HAS BEEN MEDICALLY CLEARED FOR DC HOME, NO SERVICES. NO ACTIVE PCP. BLS TRANSPORT BOOKED VIA [employer] FOR 10 AM. RN AWARE. MOTHER UPDATED.
--- NOTE | 2024-12-23 10:19 | PC.NURSE ---
ABT and Oxy given to EMS for patient to bring home.
--- NOTE | 2024-12-30 06:20 | PC.NURSE ---
Patient received Oxycodone 5 mg on 12/21 at 0605. Patient's pain level was a 6 at that time . Pain level was documented as 8 was in error. Unable to change pain level in JAN.
== END 2024-12-23 10:24 | disposition home or self-care (01) | DRG 197 ==
LOC: HO.ED 19:47 → HO.EDOVER 21:23 → HO.S3 12-19 03:50
PROVIDERS: Nurse Practitioner Acute Care; Physician Assistant Medical; Student in an Organized Health Care Education/Training Program; Admitting Provider Student in an Organized Health Care Education/Training Program; Emergency Provider Emergency Medicine; PCP Family Medicine; Visit Provider Physician Assistant Medical
DX: I96 Gangrene, not elsewhere classified (principal); I12.0 Hypertensive chronic kidney disease with stage 5 chronic kidney disease or end stage renal disease; L89.893 Pressure ulcer of other site, stage 3; D63.1 Anemia in chronic kidney disease; L03.311 Cellulitis of abdominal wall; I95.9 Hypotension, unspecified; N18.6 End stage renal disease; E11.22 Type 2 diabetes mellitus with diabetic chronic kidney disease; F11.20 Opioid dependence, uncomplicated; F19.90 Other psychoactive substance use, unspecified, uncomplicated; K21.9 Gastro-esophageal reflux disease without esophagitis; E78.5 Hyperlipidemia, unspecified; E11.51 Type 2 diabetes mellitus with diabetic peripheral angiopathy without gangrene; I48.0 Paroxysmal atrial fibrillation; F17.210 Nicotine dependence, cigarettes, uncomplicated; Z89.511 Acquired absence of right leg below knee; Z20.822 Contact with and (suspected) exposure to COVID-19; Z99.2 Dependence on renal dialysis; Z91.158 Patient's noncompliance with renal dialysis for other reason; Z71.6 Tobacco abuse counseling; Z86.14 Personal history of Methicillin resistant Staphylococcus aureus infection; Z79.01 Long term (current) use of anticoagulants; Z79.4 Long term (current) use of insulin; Z79.899 Other long term (current) drug therapy
CPT/HCPCS: 0241U; 36415; 71045; 73701; 80048; 80053; 80202; 82010; 82947; 83036; 83540; 83605; 83735; 85025; 85027; 85610; 85652; 86140; 87040; 90999; 93005; 99285; J0692; J1171; J1644; J2543; J3370; Q9967

== ENCOUNTER → 2024-12-17 18:45 | Outpatient (BNV) | payer MEDICAID, SELFPAY | PROVIDERS: Emergency Provider Emergency Medicine; PCP Family Medicine; Visit Provider Radiology Diagnostic Radiology | DX: R22.41 Localized swelling, mass and lump, right lower limb (principal); R06.02 Shortness of breath | CPT/HCPCS: 71045; 73701 ==

== ENCOUNTER → 2024-12-17 18:46 | Outpatient (BNV) | payer MEDICAID, SELFPAY | PROVIDERS: Admitting Provider Student in an Organized Health Care Education/Training Program; Emergency Provider Emergency Medicine; PCP Family Medicine; Visit Provider Internal Medicine Cardiovascular Disease | DX: E87.8 Other disorders of electrolyte and fluid balance, not elsewhere classified (principal) | CPT/HCPCS: 93010 ==

== ENCOUNTER → 2024-12-17 21:13 | Outpatient (BNV) | payer MEDICAID, SELFPAY | PROVIDERS: Admitting Provider Student in an Organized Health Care Education/Training Program; Emergency Provider Emergency Medicine; PCP Family Medicine; Visit Provider Internal Medicine Nephrology | DX: N18.6 End stage renal disease (principal); Z99.2 Dependence on renal dialysis | CPT/HCPCS: 99222; 99232 ==

== ENCOUNTER → 2024-12-17 21:13 | Outpatient (BNV) | payer MEDICAID, SELFPAY | PROVIDERS: Admitting Provider Student in an Organized Health Care Education/Training Program; Emergency Provider Emergency Medicine; PCP Family Medicine; Visit Provider Surgery | DX: E11.622 Type 2 diabetes mellitus with other skin ulcer (principal); E11.621 Type 2 diabetes mellitus with foot ulcer; L97.519 Non-pressure chronic ulcer of other part of right foot with unspecified severity | CPT/HCPCS: 97597; 99222; 99232 ==

== ENCOUNTER → 2024-12-17 21:13 | Outpatient (BNV) | payer MEDICAID, SELFPAY | PROVIDERS: Admitting Provider Student in an Organized Health Care Education/Training Program; Emergency Provider Emergency Medicine; PCP Family Medicine; Visit Provider Student in an Organized Health Care Education/Training Program | DX: R73.9 Hyperglycemia, unspecified (principal) | CPT/HCPCS: 99223; 99232; 99239 ==

== ENCOUNTER 2024-12-27 11:30 | Outpatient (AMB) | payer OTHER, SELFPAY ==
--- NOTE | 2024-12-27 11:31 | A.OFFVISCC_ITS ---
Intake Visit Reasons: MAT Tele Allergies No Known Allergies [No Known Allergies*] Allergy (Verified 12/17/24 18:47) HPI HPI MAT Tele: Details: Patient presents for follow up via telehealth Currently prescribed Suboxone 8mg TID Tolerating current dose --denies constipation or any side effects States he has been attending dialysis 3x/week Wound care being provided by his mother as he states VNA did not show up to his house Review of Systems Const Reports as per HPI Telehealth Telehealth Telehealth Platform: Telephone Location of provider rendering services: practice address Location of patient: address on file Patient Identification confirmed using: Name, : Yes Telehealth method: voice only Patient verbally consented to treatment: Yes Patient verbally consented to billing insurance company: Yes Minutes spent on Phone/Video with Pt.: 12 [facility] Medical History (Updated 12/21/24 @ 13:04 by Shmuel Cagle MD) Open wound Opioid use disorder, severe, dependence Bacteremia Volume overload Paroxysmal atrial flutter Cardiomyopathy Pericardial effusion Atrial flutter Need for acute hemodialysis Leukocytosis Anemia Anemia Transfusion history Atrial flutter, paroxysmal COPD (chronic obstructive pulmonary disease) Constipation Callus of foot Seizure Polysubstance abuse CKD (chronic kidney disease) stage 3, GFR 30-59 ml/min Foot osteomyelitis, left Amputation of toe of right foot Diabetic ulcer of right foot Hyperglycemia due to type 2 diabetes mellitus Renal failure Sleep apnea Diabetes HTN (hypertension) Surgical History Hx of right BKA History of surgical procedure (~04/24/23) Social History Household Members: Other Household Members Other:: mother Housing: Apartment Do you presently have visiting nurse or other home services: No Unable to assess alcohol history related to: Unable to respond Alcohol intake: former Comment: bilateral wrist restraints/propofol drip for airway safety Patient Tobacco Use Status: Current everyday Tobacco user Tobacco use type: Cigarette Cigarette Packs Per Day: 0.5 Cigarettes Per Day: 6 Years Smoked: 33 e-Cigarette/Vaping Use: Currently Using Second Hand Smoke Exposure: Yes Substance Use Type: Crack/Cocaine, Heroin, Marijuana and Opiates service: No Assessment & Plan Assessment & Plan (1) Opioid use disorder, severe, dependence: Code(s): F11.20 - Opioid dependence, uncomplicated Category: Medical Plan: * continue suboxone at current dose --2 week rx with one refill sent in * follow up 4 weeks--patient aware of transition to other provider for continuation of treatment for MOUD Medications: Refilled buprenorphine-naloxone 8-2 mg 1 film sublingual TID 42 ea 1RF
--- OUTSIDE RECORDS SUMMARY | 2024-12-27 13:15 | XMS_ITS | Encounter Summary ---
Author Organization [facility] Address [address] [facility] [address] [place] [address] Phone Care Team Providers Care Adjunct Professor Of [place] History Name Role Phone CkCristina adamson MD Primary Care Provider Randall robledo Encounter Details Date Type Department Care Team (Late st Contact Info) Description 09/11/2023 Office Communication [facility] [address] [facility] [address] [place] [address] Rick Hurd MD [address] [facility] [address] [place] [address] Social History Tobacco Use Types [...] on filedocumented in this encounter Care Teams Adjunct Professor Of U.[place]. History Relationship Specialty Start Date End Date Cristina Stover MD PCP - General 11/13/20 documented as of this encounter
--- OUTSIDE RECORDS SUMMARY | 2024-12-27 13:15 | XMS_ITS | Clinical Summary ---
Author Organization [facility] Address [address] [place] [address] Phone Care Team Providers Care Automation Control Integrator Name Role Phone Cristina Stover MD Primary [...] on 05/20 Seen by [facility] at [facility], missed POP appts. Has fu appt next [...] status 06/04/2023 Overview (01/23/2024): Admitted 05/04/23 to [facility] for encephalopathy thought to be cocaine related. he was discharged against medical advice. Seen in [facility] 05/09/23 with repot of myoclonic spasms. Urine drug screen positive for opiates, fentanyl and cocaine.seen 05/11/23 in [facility] for continued abnormal movents and discharged home. Admitted to [facility] 05/12/23-05/14/23 for possible seizure activity. He presented [...] 11/12/2018, 07/25/2016, Additional history exists Insurance [place]ID [place] Care Teams Automation Control Integrator Relationship Specialty Start Date End Date Ck, Cristina Montano MD PCP - General 11/13/20
--- OUTSIDE RECORDS SUMMARY | 2024-12-27 13:15 | XMS_ITS | Encounter Summary ---
Author Organization [facility] Address [address] [place] [address] Phone Care Team Providers Care Assembler Installer Structures Name Role Phone Ck, Cristina Montano MD Primary Care Provider Randall meena Encounter Details Date Type Department Care Team (Late st Contact Info) Description 04/17/2022 Telephone [facility] [address] [place] [address] Rick Hurd MD [address] [facility] [address] [place] [address] Social History Tobacco Use Types [...] that process. Please call her back at [phone] documented in this encounter Plan of Treatment Not on file documented as of this encounter Visit Diagnoses Not on filedocumented in this encounter Care Teams Assembler Installer Structures Relationship Specialty Start Date End Date Cristina Stover MD PCP - General 11/13/20 documented as of this encounter
--- OUTSIDE RECORDS SUMMARY | 2024-12-27 13:15 | XMS_ITS | Encounter Summary ---
Author Organization [facility] Address [address] [facility] [address] [place] [address] Phone Care Team Providers Care Impregnation Operator Name Role Phone Ck, Cristina Montano MD Primary Care Provider U navailable Reason for Visit * Reason Comments Med Refill Encounter Details Date Type Department Care Team (Late st Contact Info) Description 01/04/2022 Refill [facility] [address] [facility] [address] [place] [address] Rick Hurd MD [address] [facility] [address] [place] [address] Social History Tobacco Use Types [...] on filedocumented in this encounter Care Teams Impregnation Operator Relationship Specialty Start Date End Date [place], Cristina Montano MD PCP - General 11/13/20 documented as of this encounter
== END 2024-12-27 11:42 | disposition home or self-care (01) ==
PROVIDERS: PCP Family Medicine; Visit Provider Nurse Practitioner Psychiatric/Mental Health
DX: F11.20 Opioid dependence, uncomplicated (principal)
CPT/HCPCS: 98012

== ENCOUNTER → 2025-01-01 | Outpatient (BNV) | payer MEDICAID, SELFPAY | PROVIDERS: Visit Provider Internal Medicine Nephrology | DX: N18.6 End stage renal disease (principal) | CPT/HCPCS: 90961 ==

== ENCOUNTER 2025-01-20 20:27 | Emergency (ER) | payer MEDICAID, SELFPAY ==
[2025-01-20 20:37] VITALS: BP 151/80; PULSE 100; PULSE 96; RESP 20; TEMP 37.1; O2SAT 99; BMI 27.0
[2025-01-20 20:42] LABS: Glucose, Whole Blood 217 mg/dL (60-115)
[2025-01-20 21:08] LABS: MANUAL DIFF FLAG NO
[2025-01-20 21:12] LABS: Venous Blood Gas Refer to POC result
[2025-01-20 21:13] LABS: VBG Base Excess 8.1 mmol/L; VBG HCO3 32 mmol/L (22-26); VBG pCO2 41 mmHg; VBG pH 7.49 (7.32-7.43); VBG pO2 54 mmHg
--- NOTE | 2025-01-20 21:13 | PC.NURSE ---
Addendum entered by Dora Cespedes 01/20/25 21:35: correction -RBKA. pt noted to have large wound to the inner right thigh. Original Note: pt biba from home, a&ox4, respirations even and unlabored. pt reports he has not taken his insulin in 1 month due to his pcp but covering it. pt states he has been feeling dehydrated but denies n/v. pt is bed bound and on 2L nc baseline. pt is LBKA and pt goes to dialysis MWF and states he went yesterday. pt has right chest port.
--- NOTE | 2025-01-20 21:19 | ED.GENADULT ---
HPI - General Adult General Chief complaint: General Medical Stated complaint: weakness and possible dehydration Time Seen by Provider: 01/20/25 21:19 Source: patient and EMS Mode of arrival: EMS Limitations: no limitations History of Present Illness ED Provider: DR. Arguello HPI narrative: This is a 44-year-old male with past medical history significant for ESRD on HD M/W/F, insulin-dependent diabetes type 2, PVD s/p right BKA, history of MRSA bacteremia with pulmonic valve vegetation HTN, HLD, polysubstance use on Suboxone patient stated that his pharmacy is dispensing is medication including insulin and Suboxone that he use 3 times a day because he asked for refill to so, patient now is feeling dehydrated, generalized weakness, coughing, feels dry and dehydrated. Patient did not use Suboxone for the last 3 days, patient admitted to smoking heroin yesterday. Patient declined any fever. Patient is making urine still able to urinate. Related Data Home Medications ?Medication ?Instructions ?Recorded ?Confirmed insulin lispro 100 unit/mL See Protocol subcut TIDAC 09/28/24 12/17/24 subcutaneous pen (Humalog KwikPen (U-100) Insulin) melatonin 5 mg tablet 5 mg PO BEDTIME PRN insomnia 09/28/24 12/17/24 insulin glargine 100 unit/mL (3 10 unit subcut BEDTIME 12/17/24 12/17/24 mL) subcutaneous pen sevelamer carbonate 800 mg tablet 1,600 mg PO TID 12/17/24 12/17/24 Previous Rx's ?Medication ?Instructions ?Recorded Dakins solution 1/4 strength #1 ea 09/25/24 amiodarone 200 mg tablet 200 mg PO DAILY #90 tabs 09/25/24 apixaban 5 mg tablet (Eliquis) 5 mg PO BID #180 tabs 09/25/24 atorvastatin 40 mg tablet 40 mg PO BEDTIME #30 tabs 09/25/24 calcitriol 0.25 mcg capsule 0.5 mcg (2 x 0.25 mcg) PO DAILY 09/25/24 #60 caps calcium acetate(phosphat bind) 667 1,334 mg (2 x 667 mg) PO TIDWM 09/25/24 mg capsule #120 caps multivitamin 1 tab PO DAILY #30 tabs 09/25/24 omeprazole 20 mg capsule,delayed 20 mg PO DAILY@0630 #30 caps 09/25/24 release pen needle, diabetic 32 gauge x #100 ea 09/25/2411/06 blood sugar diagnostic (FreeStyle #100 ea 09/29/24 Lite Strips) blood-glucose meter #1 ea 09/29/24 lancets 28 gauge (FreeStyle #100 ea 09/29/24 Lancets) metoprolol succinate 50 mg 50 mg PO DAILY #90 tabs 10/13/24 tablet,extended release 24 hr midodrine 5 mg tablet 5 mg PO BID #60 tabs 10/13/24 torsemide 20 mg tablet 80 mg PO BID #180 tabs 10/13/24 oxycodone 5 mg tablet 10 mg (2 x 5 mg) PO Q12H PRN Pain, 11/25/24 Moderate(Pain Scale 4-6) #20 tabs polyethylene glycol 3350 17 gram 17 g PO DAILY PRN Constipation 11/25/24 oral powder packet #120 ea doxycycline hyclate 100 mg tablet 100 mg PO BID #14 tabs 12/22/24 oxycodone 10 mg tablet 10 mg PO Q8H PRN pain (scale score 12/23/24 7-10) #12 tabs buprenorphine 8 mg-naloxone 2 mg 1 film sublingual TID #42 ea 12/27/24 sublingual film Allergies Allergy/AdvReac Type Severity Reaction Status Date / Time No Known Allergies Allergy Verified 01/20/25 20:39 [No Known Allergies*] Review of Systems Review of Systems: All other systems are reviewed and are negative Constitutional: Reports as per HPI and Reports no additional constitutional complaints Eyes: Reports as per HPI and Reports no additional eye complaints Reports system reviewed and no additional complaints, except as documented Cardiovascular: Reports as per HPI and Reports no additional cardiovascular complaints Respiratory: Reports as per HPI and Reports no additional respiratory complaints Gastrointestinal: Reports as per HPI and Reports no additional gastrointestinal complaints Genitourinary: Reports no additional female genitourinary complaints Musculoskeletal: Reports no additional musculoskeletal complaints Skin/Breast: Reports system reviewed and no additional complaints, except as docu Psychiatric: Reports no additional psychiatric complaints Endocrine: Reports no additional endocrine complaints Hematologic/Lymphatic: Reports no additional hematologic/lymphatic complaints Allergic/Immunologic: Reports no additional allergic/immunologic complaints Reports system reviewed and no additional complaints, except as documented and Reports Abnormal speech present [facility] Past Medical History Medical History Anemia in chronic kidney disease (CKD) ESRD (end stage renal disease) on dialysis Open wound Opioid use disorder, severe, dependence Bacteremia Volume overload Paroxysmal atrial flutter Cardiomyopathy Pericardial effusion Atrial flutter Need for acute hemodialysis Leukocytosis Anemia Anemia Transfusion history Atrial flutter, paroxysmal COPD (chronic obstructive pulmonary disease) Constipation Callus of foot Seizure Polysubstance abuse CKD (chronic kidney disease) stage 3, GFR 30-59 ml/min Foot osteomyelitis, left Amputation of toe of right foot Diabetic ulcer of right foot Hyperglycemia due to type 2 diabetes mellitus Renal failure Sleep apnea Diabetes HTN (hypertension) Surgical History Hx of right BKA History of surgical procedure (~04/24/23) Social History Social History Household Members: Other Household Members Other:: mother Housing: Apartment Do you presently have visiting nurse or other home services: No Unable to assess alcohol history related to: Unable to respond Alcohol intake: former Comment: bilateral wrist restraints/propofol drip for airway safety Patient Tobacco Use Status: Current everyday Tobacco user Tobacco use type: Cigarette Cigarette Packs Per Day: 0.5 Cigarettes Per Day: 6 Years Smoked: 33 Smoked in Last 30 Days: No e-Cigarette/Vaping Use: Currently Using Second Hand Smoke Exposure: Yes Use of substances other than those prescribed or required for medical reasons: No Substance Use Type: Crack/Cocaine, Heroin, Marijuana and Opiates Advance Directives: No Advance Directives Information Provided: No Do you have a plan to hurt others: No Plan service: No Physical Exam ED Vital Signs: Vital Signs - 24 hr 01/20/25 20:37 01/20/25 22:18 01/20/25 22:22 Temperature 98.8 F 98.3 F Pulse Rate 96 87 86 Respiratory Rate 20 20 16 Blood Pressure 151/80 H 163/77 H Pulse Oximetry 99 100 Oxygen Delivery Method Room Air Room Air BMI result Body Mass Index 27.0 Vital signs have been reviewed and appear to be correct. Blood pressure elevated. Heart rate normal. Respiratory rate normal. Temperature normal. Oxygen saturation normal. Appearance: Appear anxious, Alert. Oriented X3. No acute distress. Head: Normal external exam. Normocephalic. Atraumatic. No Brownlee signs noted. No raccoon eyes noted Eyes: PERRLA. EOMI. Conjunctiva and sclera normal. Eyelids normal. ENT: TM's Normal. Pharynx normal. Uvula midline. Dry mucous membranes. No trismus noted. No drooling noted. No muffled voice noted. Neck: Normal inspection. Neck supple. FROM. No adenopathy. Thyroid Normal. No meningeal signs. No neck mass noted. CVS: Normal heart rate and rhythm. Heart sound normal. No murmurs noted. Pulses normal throughout. Respiratory: No respiratory distress. Painless inspiration. Breath sounds normal. No wheezes/rales/rhonchi noted. Chest nontender. No accessory muscle usage noted or decreased air movement noted. Abdomen: Soft and nontender. Bowel sounds normal in all 4 quadrants. No distention noted. No organomegaly noted. No visible injury noted. Back: No CVA tenderness. Full range of motion noted. Skin: Skin warm and dry. Normal skin color. Normal skin turgor. No rashes/lesions/lacerations noted. Extremities: No lower extremity edema. Extremities exhibit normal range of motion. Extremities nontender. Neuro: Oriented X 3. Cranial nerve exam: II-XII are grossly intact No motor deficit. No sensory deficit. Reflexes normal. Course Reevaluation(s) Reevaluation #1: Patient feels much better after IV hydration with 1 L fluids, patient received Suboxone in the ED and was instructed to follow-up with addiction medicine. Patient is due for dialysis tomorrow at 04:00. No indication for hospitalization. Time: 23:46 Medications Administered Discontinued Medications Generic Name Dose Route Start Last Admin Trade Name Freq PRN Reason Stop Dose Admin Albuterol/Ipratropium 3 ml 01/20/25 22:19 01/20/25 22:20 Albuterol/Iprat 2.5/0.5mg 3 Ml Ampul.Neb INHALE 01/20/25 22:20 3 ml ONCE ONE Administration Buprenorphine/Naloxone 1 film 01/20/25 21:28 01/20/25 21:40 Buprenorphine/Naloxone 8/2 Mg Film SUBLINGUAL 01/20/25 21:29 1 film ONCE ONE Administration Sodium Chloride 1,000 mls @ 999 mls/hr 01/20/25 21:28 01/20/25 21:40 Ns IV 01/20/25 22:28 999 mls/hr .Q1H1M ONE Administration Potassium Chloride 10 meq in 100 mls @ 100 mls/hr 01/20/25 21:36 01/20/25 21:45 Potassium Chloride/H20 IV 01/20/25 22:35 100 mls/hr ONCE ONE Administration Potassium Chloride 40 meq 01/20/25 21:36 01/20/25 21:45 Potassium Chloride Packet 20 Meq Packet PO 01/20/25 21:37 40 meq ONCE ONE Administration Medical Decision Making Differential Diagnosis Differential Diagnoses: The differential diagnosis associated with the presentation includes (Dehydration, electrolyte derangement, severe anemia, opiate withdrawal) Admission/Observation Consideration of admission/observation: Escalation of care including admission/observation considered Lab Data MDM Lab Attestation statement: I reviewed the patient's lab results. 01/20/25 20:59 01/20/25 20:59 Labs: Lab Results 01/20/25 01/20/25 01/20/25 Range/Units 20:37 20:59 21:03 WBC 10.5 (4.8-10.8) X10*3/uL RBC 3.49 L D (4.60-5.80) X10*6/uL Hgb 9.6 L D (14.0-18.0) g/dl Hct 30.4 L D (42.0-52.0) % MCV 87.1 (80.0-98.0) fL MCH 27.5 (27.0-33.0) pg MCHC 31.6 (31.0-36.0) g/dl RDW 18.3 H (11.0-16.0) % Plt Count 311 (160-400) X10*3/uL MPV 10.2 (9.4-12.4) fL Immature Gran % (Auto) 1.2 H (0.0-0.4) % Neut % (Auto) 65.7 (45-73) % Lymph % (Auto) 23.6 (20-40) % [place] % (Auto) 6.7 (2-11) % Eos % (Auto) 2.3 (0-4) % Baso % (Auto) 0.5 (0-2) % Lymph # (Auto) 2.5 (1.2-4.9) X10*3/uL [place] # (Auto) 0.7 (0.1-1.2) X10*3/uL Eos # (Auto) 0.2 (0.0-0.4) X10*3/uL Baso # (Auto) 0.1 (0.0-0.2) X10*3/uL Abs Immat Gran (auto) 0.13 H (0.00-0.03) X10*3/uL Absolute Neuts (auto) 6.9 (2.0-8.3) x10*3/uL Absolute Nucleated RBC 0.000 (0.0-0.012) X10*3/uL Nucleated RBC % (auto) 0.0 (0.0-0.2) /100WBC VBG pH (7.32-7.43) VBG pCO2 mmHg VBG pO2 mmHg VBG HCO3 (22-26) mmol/L VBG O2 Saturation % VBG Base Excess mmol/L Sodium 134 L (135-145) mmol/L Potassium 3.0 L D (3.3-5.1) mmol/L Chloride 97 (96-108) mmol/L Carbon Dioxide 28 (22-29) mmol/L Anion Gap 12 (12-20) BUN 17 H (9-16) mg/dL Creatinine 3.42 H (0.5-1.4) mg/dL Estim Creat Clear Calc 26.9 Estimated GFR 19 POC Glucose 217 H (60-115) mg/dL Random Glucose 233 H (60-115) mg/dL Calcium 8.6 D (8.4-10.2) mg/dL Magnesium 1.7 (1.6-2.6) mg/dL Total Bilirubin 0.2 (0.0-1.0) mg/dL AST 27 (5-37) U/L ALT < 6 (0-40) U/L Alkaline Phosphatase 124 H (39-117) U/L Total Protein 8.1 H (6.5-8.0) g/dL Albumin 2.5 L (3.5-5.0) g/dL Urine Color Yellow Urine Appearance Clear Urine pH 8.5 (5.0-9.0) Ur Specific [place] 1.010 (1.005-1.025) Urine Protein 300 (3+) H (Neg-Trace) mg/dL Urine Glucose (UA) 250 H (Negative) mg/dL Urine Ketones Negative (Negative) mg/dL Urine Blood Trace H (Negative) Urine Nitrite Negative (Negative) Ur Leukocyte Esterase Trace H (Negative) Urine RBC 0-2 (0-2) /HPF Urine WBC 0-5 (0-5) /HPF Ur Squamous Epith Cells 0-2 (0-2) /HPF Urine Bacteria None Seen (None Seen) Hyaline Casts 0-2 (0-2) /LPF Influenza Type A (PCR) NEGATIVE (Negative) Influenza Type B (PCR) NEGATIVE (Negative) RSV RNA Qual (PCR) NEGATIVE (Negative) SARS-CoV-2 RNA (RT-PCR) NEGATIVE (Negative) 01/20/25 Range/Units 21:08 WBC (4.8-10.8) X10*3/uL RBC (4.60-5.80) X10*6/uL Hgb (14.0-18.0) g/dl Hct (42.0-52.0) % MCV (80.0-98.0) fL MCH (27.0-33.0) pg MCHC (31.0-36.0) g/dl RDW (11.0-16.0) % Plt Count (160-400) X10*3/uL MPV (9.4-12.4) fL Immature Gran % (Auto) (0.0-0.4) % Neut % (Auto) (45-73) % Lymph % (Auto) (20-40) % [place] % (Auto) (2-11) % Eos % (Auto) (0-4) % Baso % (Auto) (0-2) % Lymph # (Auto) (1.2-4.9) X10*3/uL [place] # (Auto) (0.1-1.2) X10*3/uL Eos # (Auto) (0.0-0.4) X10*3/uL Baso # (Auto) (0.0-0.2) X10*3/uL Abs Immat Gran (auto) (0.00-0.03) X10*3/uL Absolute Neuts (auto) (2.0-8.3) x10*3/uL Absolute Nucleated RBC (0.0-0.012) X10*3/uL Nucleated RBC % (auto) (0.0-0.2) /100WBC VBG pH 7.49 H (7.32-7.43) VBG pCO2 41 mmHg VBG pO2 54 mmHg VBG HCO3 32 H (22-26) mmol/L VBG O2 Saturation 91.0 % VBG Base Excess 8.1 mmol/L Sodium (135-145) mmol/L Potassium (3.3-5.1) mmol/L Chloride (96-108) mmol/L Carbon Dioxide (22-29) mmol/L Anion Gap (12-20) BUN (9-16) mg/dL Creatinine (0.5-1.4) mg/dL Estim Creat Clear Calc Estimated GFR POC Glucose (60-115) mg/dL Random Glucose (60-115) mg/dL Calcium (8.4-10.2) mg/dL Magnesium (1.6-2.6) mg/dL Total Bilirubin (0.0-1.0) mg/dL AST (5-37) U/L ALT (0-40) U/L Alkaline Phosphatase (39-117) U/L Total Protein (6.5-8.0) g/dL Albumin (3.5-5.0) g/dL Urine Color Urine Appearance Urine pH (5.0-9.0) Ur Specific [place] (1.005-1.025) Urine Protein (Neg-Trace) mg/dL Urine Glucose (UA) (Negative) mg/dL Urine Ketones (Negative) mg/dL Urine Blood (Negative) Urine Nitrite (Negative) Ur Leukocyte Esterase (Negative) Urine RBC (0-2) /HPF Urine WBC (0-5) /HPF Ur Squamous Epith Cells (0-2) /HPF Urine Bacteria (None Seen) Hyaline Casts (0-2) /LPF Influenza Type A (PCR) (Negative) Influenza Type B (PCR) (Negative) RSV RNA Qual (PCR) (Negative) SARS-CoV-2 RNA (RT-PCR) (Negative) Discharge Plan Discharge Clinical Impression: Acute hypokalemia, Opiate withdrawal, Dehydration Patient Disposition: Home, Self-Care Instructions: Dehydration (ED) Prescriptions: No Action metoprolol succinate 50 mg tablet extended release 24 hr 50 mg PO DAILY Qty: 90 0RF midodrine 5 mg Tablet 5 mg PO BID Qty: 60 0RF torsemide 20 mg Tablet 80 mg PO BID Qty: 180 0RF Protocol: Hold for SBP< HOLD for SBP < : 100 multivitamin Tablet 1 tab PO DAILY Qty: 30 0RF atorvastatin 40 mg tablet 40 mg PO BEDTIME Qty: 30 0RF amiodarone 200 mg tablet 200 mg PO DAILY Qty: 90 0RF omeprazole 20 mg capsule,delayed release(DR/EC) 20 mg PO DAILY@0630 Qty: 30 0RF calcitriol 0.25 mcg Capsule 0.5 mcg PO DAILY Qty: 60 0RF calcium acetate(phosphat bind) 667 mg Capsule 1,334 mg PO TIDWM Qty: 120 0RF (DME) pen needle, diabetic 32 gauge x 1/4 needle Qty: 100 0RF Rx Instructions: Use four times a day or as directed. Eliquis 5 mg Tablet 5 mg PO BID Qty: 180 0RF (DME) Dakins solution 1/4 strength 500ml See Rx Instructions .Route .MEDSUPPLY Qty: 1 0RF Rx Instructions: As directed insulin lispro [Humalog KwikPen Insulin] 100 unit/mL insulin pen See Protocol subcut TIDAC Protocol: Insulin Correction Scale Less than or equal to 110 ---- Give (units): 0 111 to 150 Give (units): 0 151 to 200 Give (units): 3 201 to 250 Give (units): 5 251 to 300 Give (units): 8 301 to 350 Give (units): 10 Greater than 350 Give (units): 15 Call MD if Blood Glucose > : 350 melatonin 5 mg tablet 5 mg PO BEDTIME PRN (Reason: insomnia) (DME) FreeStyle Lite Strips Strip Qty: 100 0RF Rx Instructions: Test four times a day or as directed. (DME) blood-glucose meter Kit Qty: 1 0RF Rx Instructions: As Directed (DME) lancets [FreeStyle Lancets] 28 gauge misc Qty: 100 0RF Rx Instructions: Test four times a day or as directed. polyethylene glycol 3350 17 gram Powder In Packet 17 g PO DAILY PRN (Reason: Constipation) Qty: 120 0RF oxycodone 5 mg Tablet 10 mg PO Q12H PRN (Reason: Pain, Moderate(Pain Scale 4-6)) Qty: 20 0RF Rx Instructions: Partial Fill upon patient request. sevelamer carbonate 800 mg tablet 1,600 mg PO TID insulin glargine 100 unit/mL (3 mL) insulin pen 10 unit subcut BEDTIME doxycycline hyclate 100 mg tablet 100 mg PO BID Qty: 14 0RF oxycodone 10 mg tablet 10 mg PO Q8H PRN (Reason: pain (scale score 7-10)) Qty: 12 0RF Rx Instructions: Partial Fill upon patient request. buprenorphine-naloxone 8-2 mg film 1 film sublingual TID Qty: 42 1RF Referrals: [facility] [Primary Care Provider] - Print Language: Welsh
[2025-01-20 21:20] LABS: Basophils Absolute Auto 0.1 X10*3/uL (0.0-0.2); Basophils Percent Auto 0.5 % (0-2); Eosinophils Absolute Auto 0.2 X10*3/uL (0.0-0.4); Eosinophils Percent Auto 2.3 % (0-4); Hematocrit 30.4 % (42.0-52.0); Hemoglobin 9.6 g/dl (14.0-18.0); Imm Gran Abs Auto 0.13 X10*3/uL (0.00-0.03); Imm Gran Pct Auto 1.2 % (0.0-0.4); Lymphocytes Absolute Auto 2.5 X10*3/uL (1.2-4.9); Lymphocytes Percent Auto 23.6 % (20-40); Mean Corpuscular HGB Conc 31.6 g/dl (31.0-36.0); Mean Corpuscular Hemoglobin 27.5 pg (27.0-33.0); Mean Corpuscular Volume 87.1 fL (80.0-98.0); Mean Platelet Volume 10.2 fL (9.4-12.4); Monocytes Absolute Auto 0.7 X10*3/uL (0.1-1.2); Monocytes Percent Auto 6.7 % (2-11); Neutrophils Absolute Auto 6.9 x10*3/uL (2.0-8.3); Neutrophils Percent Auto 65.7 % (45-73); Platelet Count 311 X10*3/uL (160-400); Red Blood Count 3.49 X10*6/uL (4.60-5.80); Red Cell Distribution Width 18.3 % (11.0-16.0); White Blood Count 10.5 X10*3/uL (4.8-10.8)
[2025-01-20 21:25] LABS: Alanine Aminotransferase < 6 U/L (0-40); Albumin Level 2.5 g/dL (3.5-5.0); Alkaline Phosphatase 124 U/L (39-117); Anion Gap 12 (12-20); Aspartate Amino Transferase 27 U/L (5-37); Bilirubin Total 0.2 mg/dL (0.0-1.0); Blood Urea Nitrogen 17 mg/dL (9-16); Calcium 8.6 mg/dL (8.4-10.2); Carbon Dioxide 28 mmol/L (22-29); Chloride 97 mmol/L (96-108); Creatinine Clr Calc Pharmacy 26.9; Estimated Glomerular Filt Rate 19; Glucose Random 233 mg/dL (60-115); Magnesium 1.7 mg/dL (1.6-2.6); Sodium 134 mmol/L (135-145); Total Protein 8.1 g/dL (6.5-8.0)
[2025-01-20 21:28] LABS: Appearance Urine Clear; Color Urine Yellow; Glucose Urine UA 250 mg/dL (Negative); Leukocyte Esterase Urine Trace (Negative); Nitrite Urine Negative (Negative); PH 8.5 (5.0-9.0); UMIC TRIGGER UACC YES; Urine Blood Trace (Negative); Urine Ketones Negative (Negative); Urine Protein 300 (3+) mg/dL (Neg-Trace)
[2025-01-20] MEDS: Buprenorphine/Naloxone 8/2 mg FILM 1 FILM SUBLINGUAL (21:40)
[2025-01-20] MEDS: 0.9 % Sodium Chloride 1,000 ML 999 ML IV (21:40)
[2025-01-20] MEDS: Potassium Chloride/H20 10 MEQ/100 ML PIGGYBACK 100 MEQ IV (21:45)
[2025-01-20] MEDS: Potassium Chloride Packet 20 MEQ PACKET 40 MEQ PO (21:45)
[2025-01-20 21:49] LABS: Bacteria Urine None Seen (None Seen); Hyaline Casts Urine 0-2 /LPF (0-2); RBC Urine 0-2 /HPF (0-2); Squamous Epithelial Cell Urine 0-2 /HPF (0-2); WBC Urine 0-5 /HPF (0-5)
[2025-01-20 21:50] LABS: Influenza A PCR NEGATIVE (Negative); Influenza B PCR NEGATIVE (Negative); Resp Syncy Virus RNA Qual PCR NEGATIVE (Negative); SARS COV2 PCR INHOUSE NEGATIVE (Negative)
[2025-01-20 22:18] VITALS: BP 163/77; PULSE 87; RESP 20; TEMP 36.8; O2SAT 100
[2025-01-20] MEDS: Albuterol/Iprat 2.5/0.5MG 3 ML AMPUL.NEB INHALE (22:20)
[2025-01-20 22:22] VITALS: PULSE 86; RESP 16; O2SAT 100
[2025-01-21 01:05] VITALS: BP 145/78; PULSE 88; RESP 15; TEMP 36.6; O2SAT 98
[2025-01-21 01:06] VITALS: BP 145/78; PULSE 88; RESP 15; TEMP 36.6; O2SAT 98
== END 2025-01-21 01:06 | disposition home or self-care (01) ==
PROVIDERS: Physician Assistant; Emergency Provider Emergency Medicine
DX: E87.6 Hypokalemia (principal); F11.23 Opioid dependence with withdrawal; E86.0 Dehydration; R53.1 Weakness; Z03.818 Encounter for observation for suspected exposure to other biological agents ruled out; E11.22 Type 2 diabetes mellitus with diabetic chronic kidney disease; I12.0 Hypertensive chronic kidney disease with stage 5 chronic kidney disease or end stage renal disease; N18.6 End stage renal disease; Z99.2 Dependence on renal dialysis; I48.0 Paroxysmal atrial fibrillation; F17.210 Nicotine dependence, cigarettes, uncomplicated; Z79.4 Long term (current) use of insulin; Z79.01 Long term (current) use of anticoagulants; Z79.02 Long term (current) use of antithrombotics/antiplatelets
CPT/HCPCS: 0241U; 36415; 80053; 81001; 82803; 82947; 83735; 85025; 94640; 96361; 96374; 99284; 99285; J3480

== ENCOUNTER 2025-01-24 13:08 | Outpatient (AMB) | payer MEDICAID, SELFPAY ==
--- NOTE | 2025-01-24 13:08 | A.OFFVIS_ITS ---
Intake Visit Reasons: MAT Tele Allergies No Known Allergies [No Known Allergies*] Allergy (Verified 01/24/25 13:08) HPI HPI MAT Tele: Details: Patient presents for follow up via telehealth Currently prescribed Suboxone 8mg TID Reports he is tolerating current dose Denies any constipation, reports sleep and appetite okay In ED 4 days ago for withdrawal and dehydration ED note states patient reported smoking heroin recently and that he ran out of his suboxone Patient's account of what brought him to ED was very different, however mother was also in the same room patient was having telehealth visit Still attending Dialysis M,W, F Inquiring about how to get a wheelchair, advised to call PCP office for guidance around this process Patient agreeable [facility] Medical History Anemia in chronic kidney disease (CKD) ESRD (end stage renal disease) on dialysis Open wound Opioid use disorder, severe, dependence Bacteremia Volume overload Paroxysmal atrial flutter Cardiomyopathy Pericardial effusion Atrial flutter Need for acute hemodialysis Leukocytosis Anemia Anemia Transfusion history Atrial flutter, paroxysmal COPD (chronic obstructive pulmonary disease) Constipation Callus of foot Seizure Polysubstance abuse CKD (chronic kidney disease) stage 3, GFR 30-59 ml/min Foot osteomyelitis, left Amputation of toe of right foot Diabetic ulcer of right foot Hyperglycemia due to type 2 diabetes mellitus Renal failure Sleep apnea Diabetes HTN (hypertension) Surgical History Hx of right BKA History of surgical procedure (~04/24/23) Social History Household Members: Other Household Members Other:: mother Housing: Apartment Do you presently have visiting nurse or other home services: No Unable to assess alcohol history related to: Unable to respond Alcohol intake: former Comment: bilateral wrist restraints/propofol drip for airway safety Patient Tobacco Use Status: Current everyday Tobacco user Tobacco use type: Cigarette Cigarette Packs Per Day: 0.5 Cigarettes Per Day: 6 Years Smoked: 33 e-Cigarette/Vaping Use: Currently Using Second Hand Smoke Exposure: Yes Substance Use Type: Crack/Cocaine, Heroin, Marijuana and Opiates service: No Review of Systems Const Reports as per HPI and Denies difficulty sleeping GI Denies constipation and Denies nausea Telehealth Telehealth Telehealth Platform: Telephone Location of provider rendering services: practice address Location of patient: address on file Patient Identification confirmed using: Name, : Yes Telehealth method: voice only Patient verbally consented to treatment: Yes Patient verbally consented to billing insurance company: Yes Minutes spent on Phone/Video with Pt.: 15 Assessment & Plan Assessment & Plan (1) Opioid use disorder, severe, dependence: Code(s): F11.20 - Opioid dependence, uncomplicated Category: Medical Plan: * continue suboxone at current dose * concern for privacy with phone calls as mother was in the room and interjecting during call--suggest headphones or patient go into another room for future visits, as recent reported substance use could not be discussed due to this * follow up 4 weeks. 2 week rx with one refill Medications: Refilled buprenorphine-naloxone 8-2 mg 1 film sublingual TID 42 ea 1RF Coding Level of Care Code Tele Est Pt Level 3 (98774) Diagnoses Opioid use disorder, severe, dependence F11.20
== END 2025-01-24 13:23 | disposition home or self-care (01) ==
LOC: HO.HCC 13:08
PROVIDERS: Visit Provider Nurse Practitioner Psychiatric/Mental Health
DX: F11.20 Opioid dependence, uncomplicated (principal)
CPT/HCPCS: 99213

== ENCOUNTER → 2025-01-24 13:08 | Outpatient (BNVA) | payer MEDICAID, SELFPAY | PROVIDERS: Visit Provider Nurse Practitioner Psychiatric/Mental Health ==

== ENCOUNTER → 2025-02-01 | Outpatient (BNV) | payer MEDICAID, SELFPAY | PROVIDERS: Visit Provider Internal Medicine Nephrology | DX: N18.6 End stage renal disease (principal) | CPT/HCPCS: 90962 ==

== ENCOUNTER → 2025-03-03 | Outpatient (BNV) | payer MEDICAID, SELFPAY | PROVIDERS: Visit Provider Internal Medicine Nephrology | DX: N18.6 End stage renal disease (principal) | CPT/HCPCS: 90961 ==

== ENCOUNTER 2025-03-18 16:32 | Outpatient (AMB) | payer MEDICAID, SELFPAY ==
--- OUTSIDE RECORDS SUMMARY | 2025-03-18 16:33 | XMS_ITS | Encounter Summary ---
Author Organization [employer] Address [address] [facility] [address] [place] [address] Care Team Providers Care Educational Assistant Name Role Phone Unavailable Primary Care Provider Unavailabl e Reason for Visit * Reason Comments Med Refill Encounter Details Date Type Department Care Team (Late st Contact Info) Description 01/26/2025 Refill [facility] [address] [place] [address] Araseli Rucker, ANP [address] [place] [address] Other insomnia Social History Tobacco Use Types Packs/Day Years [...] as of this encounter Visit Diagnoses Diagnosis Other insomnia documented in this encounter
--- OUTSIDE RECORDS SUMMARY | 2025-03-18 16:33 | XMS_ITS | Encounter Summary ---
Author Organization [facility] Address [address] [facility] [facility] [facility] [address] [place] [address] Phone Care Team Providers Care Auto Rental Clerk Name Role Phone [place], Cristina Montano MD Primary Care Provider U navailable Reason for Visit * Reason Comments Med Refill Encounter Details Date Type Department Care Team (Late st Contact Info) Description 01/04/2022 Refill [facility] [address] [facility] [address] [place] [address] Rick Hurd MD [id number] [facility] [address] [place] [address] Social History Tobacco Use Types [...] on filedocumented in this encounter Care Teams Auto Rental Clerk Relationship Specialty Start Date End Date [place], Cristina Montano MD PCP - General 11/13/20 documented as of this encounter
--- OUTSIDE RECORDS SUMMARY | 2025-03-18 16:33 | XMS_ITS | Encounter Summary ---
Author Organization [facility] Address [address] [place] [address] Phone Care Team Providers Care Photographic Enlarger Operator Name Role Phone [place], Cristina Montano MD Primary Care Provider Randall meena Encounter Details Date Type Department Care Team (Late st Contact Info) Description 04/17/2022 Telephone [facility] [address] [place] [address] Rick Hurd MD [address] [facility] [address] [place] [address] Social History Tobacco Use Types [...] that process. Please call her back at [phone] documented in this encounter Plan of Treatment Not on file documented as of this encounter Visit Diagnoses Not on filedocumented in this encounter Care Teams Photographic Enlarger Operator Relationship Specialty Start Date End Date Cristina Stover MD PCP - General 11/13/20 documented as of this encounter
--- OUTSIDE RECORDS SUMMARY | 2025-03-18 16:34 | XMS_ITS | Encounter Summary ---
Author Organization [employer] Address [address] [facility] [address], [place] [address] Care Team Providers Care Laboratory Operations Coordinator Name Role Phone Cristina Stover MD Primary Care Provider [phone]- [phone] Cristina Stover MD Primary Care Provider [phone]- [phone] Cristina Stover MD Primary Care Provider [phone]- [phone] Reason for Visit * Reason Onset Date Comments PT1 05/30/2023 Encounter Details Date Type Department Care Team (Late st Contact Info) Description 05/30/2023 Telephone [facility] [address] [place] [id number] Cristina Stover MD [address] [place] [id number] PT1 Social History Tobacco Use Types Packs/Day [...] PT1 Date: 06/02/23 Time: 9 am address: [address] [place] [address] specialty: hospital f/u # visits: sorority mother: n/a Wheelchair: yes documented in this encounter Plan of Treatment Not on file documented as of this encounter Visit Diagnoses Not on filedocumented in this encounter Care Teams Laboratory Operations Coordinator Relationship Specialty Start Date End Date Cristina Stover MD [address] [place] [address] PCP - General Family Medicine 05/20/14 12/30/23 Cristina Stover MD [address] [place] [phone] PCP - General Family Medicine 01/06/24 08/29/24 Cristina Stover MD [address] [place] [address] PCP - General Family Medicine 11/29/24 12/20/24 documented as of this encounter
--- OUTSIDE RECORDS SUMMARY | 2025-03-18 16:34 | XMS_ITS | Encounter Summary ---
Author Organization [employer] Address 75 [facility] 7t [place] [address] Care Team Providers Care Mail Messenger Name Role Phone Cristina Stover MD Primary Care Provider +1- [phone] Cristina Stover MD Primary Care Provider +1- [phone] Cristina Stover MD Primary Care Provider +1- [phone] Reason for Visit * Reason Comments Med Refill Encounter Details Date Type Department Care Team ([facility] st Contact Info) Description 05/26/2023 Refill [facility] [address] [place] [address] Araseli Rucker ANP [address] [place] [address] Social History Tobacco Use Types Packs/Day Years [...] on filedocumented in this encounter Care Teams Mail Messenger Relationship Specialty Start Date End Date Cristina Stover MD [address] [place] [address] PCP - General Family Medicine 05/20/14 12/30/23 Cristina Stover MD [address] [place] [address] PCP - General Family Medicine 01/06/24 08/29/24 Cristina Stover MD [address] [place] [address] PCP - General Family Medicine 11/29/24 12/20/24 documented as of this encounter
--- OUTSIDE RECORDS SUMMARY | 2025-03-18 16:34 | XMS_ITS | Encounter Summary ---
Author Organization [employer] Address 75 [facility] 7t [place] [address] Care Team Providers Care Manager Medical Affairs Name Role Phone Cristina Stover MD Primary Care Provider +1- [phone] Cristina Stover MD Primary Care Provider +1- [phone] Cristina Stover MD Primary Care Provider +1- [phone] Encounter Details Date Type Department Care Team (Late st Contact Info) Description 01/17/2023 Orders Only [facility] [address] [place], [place] [phone] Nay Benitez LPN Social History Tobacco Use [...] on filedocumented in this encounter Care Teams Manager Medical Affairs Relationship Specialty Start Date End Date Cristina Stover MD [address] [place] [address] PCP - General Family Medicine 05/20/14 12/30/23 Cristina Stover MD [address] [place] [address] PCP - General Family Medicine 01/06/24 08/29/24 Cristina Stover MD [address] [place] [address], [place] [address] PCP - General Family Medicine 11/29/24 12/20/24 documented as of this encounter
--- OUTSIDE RECORDS SUMMARY | 2025-03-18 16:34 | XMS_ITS | Clinical Summary ---
Author Organization [facility] Address [address] [address] [place] [address] Phone Care Team Providers Care Purchasing Administrative Assistant Name Role Phone Cristina Stover MD Primary [...] on 05/20 Seen by Vascular surgery at [facility], missed POP appts. Has fu appt [...] status 06/04/2023 Overview (01/23/2024): Admitted 05/04/23 to [facility] for encephalopathy thought to be cocaine related. he was discharged against medical advice. Seen in [facility] 05/09/23 with repot of myoclonic spasms. Urine drug screen positive for opiates, fentanyl and cocaine.seen 05/11/23 in [facility] for continued abnormal movents and discharged home. Admitted to [facility] 05/12/23-05/14/23 for possible seizure activity. He [...] obesity 05/04/2012 Gastroesophageal reflux disease 05/04/2012 Immunizations Immunization Administration Dates Next Due Hepatitis B 11/12/2018,07/25/2016,12/28/2014 IPV 05/10/1984, 9,1978,08/21 Influenza Split 07/29/2012 Influenza, Injectable, Madin Preston Canine Kidney, Preservative Free 11/16/2015 Influenza, Quadrivalent, [...] series) 1997 11/12/2018, 07/25/2016, 12/28/2014 Pneumococcal Vaccine: Peds ( 0 to 5 Years) and At-Risk Patients (6 to 49 Years) (2 of 2 - PCV) 11/16/2016 11/16/2015 Diabetes: Ophthalmology Exam 12/03/2020 Diabetes: Pedal Pulse Checked 12/03/2020 Diabetes: Sensory Foot Exam 12/03/2020 Diabetes: Visual Foot Exam 12/03/2020 Diabetes: Hemoglobin A1C 10/13/2023 07/14/2023 Influenza Vaccine (Season Ended) 2025 08/05/2019, 11/12/2018, 07/25/2016, Additional history exists Pneumococcal Vaccine: 50+ Years Discontinued 6 Insurance Medicaid [place] Care Teams Purchasing Administrative Assistant Relationship Specialty Start Date End Date [place], Cristina Montano MD PCP - General 11/13/20
--- OUTSIDE RECORDS SUMMARY | 2025-03-18 16:34 | XMS_ITS | Clinical Summary ---
Author Organization [employer] Address 75 [facility] 7t [place] [address] Care Team Providers Care Nephrologist Name Role Phone Unavailable Primary Care Provider Unavailabl e Allergies No known active allergies Medications Multiple [...] unspecified whether stage 3a or 3b CKD ([facility]) TEST BLOOD SUGAR THREE TIMES DAILY 100 strip 4 Active TRUEplus Lancets 33G miscIndications:D iabetes mellitus, stable ([facility]) TEST BLOOD SUGAR THREE TIMES DAILY 100 [...] Atrial flutter 10/05/2024 Overview (10/05/2024): -dx in [facility] 09/2024 Primary insomnia 07/14/2023 Assessment & Plan [...] after -eye care facilitated by [facility] last visit 08/10/2020 -dental home is Coronary artery disease invo lving [place] river coronary artery of [place] river heart without angina pectoris 06/23/2023 Osteomyelitis 06/23/2023 Tobacco dependence 06/23/2023 Overview (06/23/2023): -motivational interviewing done PAD (peripheral artery disease) 06/23/2023 Assessment & Plan (07/14/2023 10:32 PM EDT): Sec to DM, HTN, smoking, cocaine use. 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 Has fu appt [...] via PICC line for osteomyelitis. Returned to [facility] with AMS and underwent right BKA 05/2023 Assessment & Plan (07/14/2023 10:33 PM EDT): Right BKA stump Is healing properly, urged to fu with vascular surgery. Will need PT /OT eval for right leg prosthesis fitting I will rx a transport wheelchair for mobility Altered mental status 06/04/2023 Overview (06/04/2023): Admitted 05/04/23 to [facility] for encephalopathy thought to be cocaine related. he was discharged against medical advice. Seen in [facility] 05/09/23 with repot of myoclonic spasms. Urine drug screen positive for opiates, fentanyl and cocaine.seen 05/11/23 in [facility] ER for continued abnormal movents and discharged home. Admitted to [facility] 05/12/23-05/14/23 for possible seizure activity. He [...] Encounters Date Type Department Care Team Description 01/26/2025 Refill [facility] [address] [place], [place] [phone] Araseli Rucker ANP Other insomnia 01/20/2025 Orders Only GENERIC EXTERNAL DATA DEPARTMENT Provider, Generic External Data 01/14/2025 Population Health Risk Score Community [facility] (C3) Department [address] [address] Provider, Population Health Generic 01/12/2025 Telephone [facility] [address] [place] [address] Kyle Mitchell MD 12/30/2024 Patient Outreach [facility] [address] [place] [phone] Luis Fernando Carter MD Transition Of Care (Tcm) (HDF#2 -LVM ) 12/24/2024 Patient Outreach [facility] [address] [place] [address] Araseli Rucker ANP Transition Of Care (Tcm) ((Unable to reach for PVP screening, LVM) HDF unscheduled) 12/21/2024 Telephone [facility] [address] [place], [place] [phone] Kyle Mitchell MD NEW PT-1 from Last 3 Months Immunizations Immunization Administration Dates Next Due Hep B, adult [...] t he electric, gas, oil or water [employer] threatened to shut off services in your [...] Use Screening 1990 Family Planning (PISQ) 1993 Pneumococcal Vaccine: Pediatrics (0 to 5 Years) and At-Risk Patients (6 to 49) Years) (2 of 2 - PCV) 11/16/2016 11/16/2015 Diabetes: Urine Protein Screening 12/13/2020 12/13/2019, 11/17/2019, 10/14/2019 Diabetes: Hemoglobin A1C 10/13/2023 07/14/2023, 11/04 SDOH Screening 06/10/2024 06/10/2023 COVID-19 Vaccine ( - season) 2024 Influenza Vaccine (#1) 2024 9, 11/12/2018, 07/25/2016, Additional history exists Depression Screening 07/14/2024 07/14/2023, 07/14/20 23 DTaP/Tdap/Td Vaccines (2 - Td or Tdap) [...] on patient's age to complete this topic Hepatitis A Vaccines Aged Out No long er eligible based on patient's age to complete this topic Meningococcal B Vaccine Aged Out No l onger eligible based on patient's age to complete [...] Procedure Name Priority Date/Time Associated Diagnosis Comments VENOUS BLOOD GAS Routine 01/20/2025 9:08 PM EDT URINALYSIS, COMPLETE, WITH REFLEX TO CULTURE Routine 01/20/2025 9:03 PM EDT CBC WITH AUTO DIFFERENTIAL Routine 01/20/2025 8:59 PM EDT MAGNESIUM Routine 01/20/2025 8:59 PM EDT COMPREHENSIVE METABOLIC PANEL Routine 01/20/2025 8:59 PM EDT SARS COV2/INFLUENZA A/B AND RSV RNA QL NAAT Routine 01/20/2025 8:59 PM EDT POCT GLYCATED HEMOGLOBIN, TOTAL Routine 07/14/2023 1:40 PM EDT Type 2 diabetes mellitus with stage 4 chronic kidney disease, with long-term current use of insulin ([facility]/HCC) ZZZ HISTORICAL MICROALBUMIN, RANDOM Routine 12/13/2019 1:40 PM EST HM HEPATITIS C ANTIBODY Routine 06/22/2019 HM HIV 1/2 ANTIGEN AND ANTIBODY Routine 06/22/2019 from Last 3 Months or Most Recently Relevant to Health Maintenance Results * (ABNORMAL) VENOUS BLOOD GAS (01/20/2025 9:08 PM EDT) VBG pH 7.49(H) 7.32 - 7.43 [facility] Comment:METER #: [id number] additional_comment: Cb templeb VBG PCO2 41 mmHg [facility] Comment:METER #: [id number] additional_comment: Cb templeb VBG PO2 54 mmHg [facility] Comment:METER #: [id number] additional_comment: Cb templeb VBG Base Excess 8.1 mmol/L [facility] Comment:METER #: [id number] additional_comment: Cb templeb VBG HCO3 32(H) 22 - 26 mmol/L [facility] Comment:METER #: [id number] additional_comment: Cb templeb O2 Sat, Homar 91.0 % [facility] Comment:METER #: [id number] additional_comment: Cb templeb 01/20/2025 9:08 PM EDT 01/20/2025 9:12 PM EDT us Generic External Data Provider LAB BLOOD ORDERAB LES Final Result [facility] [address] [place] [phone] * (ABNORMAL) Urinalysis, Complete, with Reflex to Culture (01/20/2025 9:03 PM EDT) Color Urine Yellow [facility] Appearance Urine Clear [facility] PH 8.5 5.0 - 9.0 [facility] Glucose Urine UA 250(A) Negative mg/dL [facility] Urine Blood Trace(A) Negative [facility] Specific [place] - Urine 1.010 1.005 - 1.025 [facility] Urine Protein 300 (3+)(A) Neg-Trace mg/dL [facility] Urine Ketones Negative Negative mg/dL [facility] Nitrite Urine Negative Negative [facility] Leukocyte Esterase Urine Trace(A) Negative [facility] RBC Urine 0-2 0 - 2 /HPF [facility] Urine WBC 0-5 0 - 5 /HPF [facility] Urine Squamous Epithelial Cell 0-2 0 - 2 /HPF [facility] Urine Bacteria None Seen None Seen [facility] Hyaline Casts, Urine 0-2 0 - 2 /LPF [facility] 01/20/2025 9:03 PM EDT 01/20/2025 9:06 PM EDT Narrative [facility] - 01/20/2025 9:49 PM EDT [id number], Clean Catch Generic External Data Provider LAB URINE ORDERAB LES Final Result Performing Organization Address [facility] Co de Phone Number [facility] [address] [place] [phone] SARS-CoV-2 RNA, Influenza A/B, and RSV RNA, Ql NAAT (01/20/2025 8:59 PM EDT) Pathologist [facility] Influenza A PCR NEGATIVE Negative [facility] Influenza B PCR NEGATIVE Negative [facility] Resp Syncy Virus RNA Qual PCR NEGATIVE Negative [facility] SARS COV2 PCR NEGATIVE Negative [facility] Comment:All test results mus t be [...] use by authorized laboratories.Testing performed on the [employer] GeneXpert utilizingreal-time RT-PCR.All SARS CoV2 and positive influenza A/B results arereported to [facility]. 01/20/2025 8:59 PM EDT 01/20/2025 9:06 PM EDT Generic External Data Provider LAB MICROBIOLOGY - GENERAL ORDERABLES Final Result Performing Organization Address [facility]/ZIP Co de Phone Number [facility] [address] [place] [phone] * (ABNORMAL) CBC auto differential (01/20/2025 8:59 PM EDT) White Blood Count 10.5 4.8 - 10.8 X10*3/uL [facility] Red Blood Count 3.49(L) 4.60 - 5.80 X10*6/uL [facility] Hemoglobin 9.6(L) 14.0 - 18.0 g/dl [facility] Hematocrit 30.4(L) 42.0 - 52.0 % [facility] Mean Corpuscular Volume 87.1 80.0 - 98.0 fL [facility] Mean Corpuscular Hemoglobin 27.5 27.0 - 33.0 pg [facility] Mean Corpuscular HGB Conc 31.6 31.0 - 36.0 g/dl [facility] Red Cell Distribution Width 18.3(H) 11.0 - 16.0 % [facility] Platelet Count 311 160 - 400 X10*3/uL [facility] Mean Platelet Volume 10.2 9.4 - 12.4 fL [facility] Neutrophils Percent Auto 65.7 45 - 73 % [facility] Imm Gran Pct Auto 1.2(H) 0.0 - 0.4 % [facility] Lymphocytes Percent Auto 23.6 20 - 40 % [facility] Monocytes Percent Auto 6.7 2 - 11 % [facility] Eosinophils Percent Auto 2.3 0 - 4 % [facility] Basophils Percent Auto 0.5 0 - 2 % [facility] NRBC Pct Auto 0.0 0.0 - 0.2 /100WBC [facility] Neutrophils Absolute Auto 6.9 2.0 - 8.3 x10*3/uL [facility] Imm Gran Abs Auto 0.13(H) 0.00 - 0.03 X10*3/uL [facility] Lymphocytes Absolute Auto 2.5 1.2 - 4.9 X10*3/uL [facility] Monocytes Absolute Auto 0.7 0.1 - 1.2 X10*3/uL [facility] Eosinophils Absolute Auto 0.2 0.0 - 0.4 X10*3/uL [facility] Basophils Absolute Auto 0.1 0.0 - 0.2 X10*3/uL [facility] NRBC Abs Auto 0.000 0.0 - 0.012 X10*3/uL [facility] 01/20/2025 8:59 PM EDT 01/20/2025 9:06 PM EDT us Generic External Data Provider LAB BLOOD ORDERAB LES Final Result Performing Organization Address City/[facility]/ZIP Co de Phone Number [facility] [address] [place] [phone] * Magnesium (01/20/2025 8:59 PM EDT) Pathologist [facility] Magnesium 1.7 1.6 - 2.6 mg/dL [facility] 01/20/2025 8:59 PM EDT 01/20/2025 9:06 PM EDT Generic External Data Provider LAB BLOOD ORDERAB LES Final Result Performing Organization Address [facility] Co de Phone Number [facility] [address] [place] [phone] * (ABNORMAL) Comprehensive Metabolic Panel (01/20/2025 8:59 PM EDT) Pathologist [facility] Sodium 134(L) 135 - 145 mmol/L [facility] Potassium 3.0(L) 3.3 - 5.1 mmol/L [facility] Chloride 97 96 - 108 mmol/L [facility] Carbon Dioxide 28 22 - 29 mmol/L [facility] Anion Gap 12 12 - 20 [facility] Urea Nitrogen (BUN) 17(H) 9 - 16 mg/dL [facility] Creatinine, Serum 3.42(H) 0.5 - 1.4 mg/dL [facility] Creatinine Clr Calc Pharmacy 26.9 [facility] Comment:eGFR (calculated fro m the MDRD study equation) and eCrCl(calculated from the Cockcroft-Gault equation) are based ondifferent parameters and may not yield comparable results.If eCrCl result is absurd, please check patient'sheight/weight. Estimated Glomerular Filt Rate 19 [facility] Comment:Chronic Kidney Disea se: Estimated GFR < 60 mL/min/1.11m6Jfgdrc Kidney Disease: Estimated GFR < 15 mL/min/1.73m2 Glucose 233(H) 60 - 115 mg/dL [facility] Calcium 8.6 8.4 - 10.2 mg/dL [facility] Bilirubin, Total 0.2 0.0 - 1.0 mg/dL [facility] Aspartate Amino Transferase 27 5 - 37 U/L [facility] Alanine Aminotransferase <6 0 - 40 U/L [facility] Total Protein 8.1(H) 6.5 - 8.0 g/dL [facility] Albumin Level 2.5(L) 3.5 - 5.0 g/dL [facility] Alkaline Phosphatase 124(H) 39 - 117 U/L [facility] 01/20/2025 8:59 PM EDT 01/20/2025 9:06 PM EDT us Generic External Data Provider LAB BLOOD ORDERAB LES Final Result [facility] [address] [place] [address] [phone] * (ABNORMAL) POCT A1C (07/14/2023 1:40 PM EDT) Hemoglobin A1C 11.1(A) 4.0 - 6.0 % QC Media Lot # [id number] Lot# Expiration Date [id number] Blood 07/14/2023 1:40 PM EDT us Awilda Walters MD POINT OF CARE TEST ENTER /EDIT ORDERABLES Final Result * MICROALBUMIN, RANDOM (12/13/2019 1:40 PM EST) CREATININE, RANDOM URINE 32.74 MG/DL [facility] MICALB/CRE RATIO RANDOM URINE 2736.7 ug/mg cr [facility] Comment: ?Albumin/Creatinine Ratio Reference Ranges: ? Normal: < 30 ug/mg creatinine ? Microalbuminuria: ??30 - 300 ug/mg creatinine Clinical Albuminuria: ??> 300 ug/mg creatinine MICROALBUMIN, RANDOM URINE 896.0 MG/L [facility] 12/13/2019 1:40 PM EST Rick Hurd MD HISTORICAL/NON ORDERABLE LABS Final Result [facility] [address] * HM Hepatitis C Antibody (06/22/2019) Hepatitis C Antibody Nonreactive Blood Historical Provider HEALTH MAINTENANCE Final Result * HIV 1/2 Antigen and Antibody (06/22/2019) HIV Ag/Ab Nonreactive Historical Provider HEALTH MAINTENANCE Final Result from Last 3 Months or Most Recently Relevant to Health Maintenance Insurance
--- OUTSIDE RECORDS SUMMARY | 2025-03-18 16:34 | XMS_ITS | Encounter Summary ---
Author Organization [employer] Address 75 [facility] 7t [place] [address] Care Team Providers Care Station Helper Name Role Phone Cristina Stover MD Primary Care Provider +1- [phone] Cristina Stover MD Primary Care Provider +1- [phone] Cristina Stover MD Primary Care Provider +1- [phone] Encounter Details Date Type Department Care Team (Late st Contact Info) Description 10/17/2023 Telephone [facility] [address] [place], [place] [phone] Cristina Stover MD [address] [place], [place] [phone] Social History Tobacco Use Types Packs/Day Years [...] mom of pt requesting Phone number of [facility] wheel chair clinic. PCP DR. Stover documented in this encounter Plan of Treatment Not on file documented as of this encounter Visit Diagnoses Not on filedocumented in this encounter Care Teams Station Helper Relationship Specialty Start Date End Date Cristina Stover MD [address] [place] [address] PCP - General Family Medicine 05/20/14 12/30/23 Cristina Stover MD [address] [place] [address] PCP - General Family Medicine 01/06/24 08/29/24 Cristina Stover MD [address] [place] [address] PCP - General Family Medicine 11/29/24 12/20/24 documented as of this encounter
--- OUTSIDE RECORDS SUMMARY | 2025-03-18 16:34 | XMS_ITS | Encounter Summary ---
Author Organization [employer] Address 75 [facility] 7t [place] [address] Care Team Providers Care Woodwind Instrument Repairer Name Role Phone Cristina Stover MD Primary Care Provider +1- [phone] Cristina Stover MD Primary Care Provider +1- [phone] Cristina Stover MD Primary Care Provider +1- [phone] Encounter Details Date Type Department Care Team (Late st Contact Info) Description 06/04/2023 Orders Only [facility] [address] [place] [address] [phone] Cristina Stover MD [address] [place], [place] [phone] Uncomplicated opioid dependence (CMS/HCC); Polysubstance abuse (CMS/HCC); [...] type documented in this encounter Care Teams Woodwind Instrument Repairer Relationship Specialty Start Date End Date Cristina Stover MD [address] [place] [address] PCP - General Family Medicine 05/20/14 12/30/23 Cristina Stover MD [address] [place] [address] PCP - General Family Medicine 01/06/24 08/29/24 Cristina Stover MD [address] [place] [address] PCP - General Family Medicine 11/29/24 12/20/24 documented as of this encounter
--- OUTSIDE RECORDS SUMMARY | 2025-03-18 16:34 | XMS_ITS | Encounter Summary ---
Author Organization [employer] Address 75 [facility] 7t [place] [address] Care Team Providers Care Psychologist Chief Name Role Phone Cristina Stover MD Primary Care Provider +1- [phone] Cristina Stover MD Primary Care Provider +1- [phone] Cristina Stover MD Primary Care Provider +1- [phone] Encounter Details Date Type Department Care Team (Late st Contact Info) Description 11/19/2022 Orders Only [facility] [address] [place], [place] [phone] Nay Benitez LPN Social History Tobacco Use [...] on filedocumented in this encounter Care Teams Psychologist Chief Relationship Specialty Start Date End Date Cristina Stover MD [address] [place] [phone] PCP - General Family Medicine 05/20/14 12/30/23 Cristina Stover MD [address] [place] [address] PCP - General Family Medicine 01/06/24 08/29/24 Cristina Stover MD [address] [place] [address], [place] [address] PCP - General Family Medicine 11/29/24 12/20/24 documented as of this encounter
--- OUTSIDE RECORDS SUMMARY | 2025-03-18 16:34 | XMS_ITS | Encounter Summary ---
Author Organization [employer] Address 75 [facility] 7t [place] [address] Care Team Providers Care Sheep And Wheat Farmer Name Role Phone Cristina Stover MD Primary Care Provider +1- [phone] Cristina Stover MD Primary Care Provider +1- [phone] Cristina Stover MD Primary Care Provider +1- [phone] Encounter Details Date Type Department Care Team (Late st Contact Info) Description 03/20/2023 Orders Only [facility] [address] [place], [place] [phone] Nay Benitez LPN Social History Tobacco Use [...] on filedocumented in this encounter Care Teams Sheep And Wheat Farmer Relationship Specialty Start Date End Date Cristina Stover MD [address] [place] [address] PCP - General Family Medicine 05/20/14 12/30/23 Cristina Stover MD [address] [place] [address] PCP - General Family Medicine 01/06/24 08/29/24 Cristina Stover MD [address] [place] [address], [place] [address] PCP - General Family Medicine 11/29/24 12/20/24 documented as of this encounter
--- OUTSIDE RECORDS SUMMARY | 2025-03-18 16:34 | XMS_ITS | Encounter Summary ---
Author Organization [facility] Address [address] [facility] [address] [place] [address] Care Team Providers Care Concrete Pouring Supervisor Name Role Phone Cristina Stover MD Primary Care Provider [phone]- [phone] Cristina Stover MD Primary Care Provider +1- [phone] Cristina Stover MD Primary Care Provider +1- [phone] Reason for Visit * Reason Onset Date Comments Hospital Follow-up 11/26/2023 Encounter Details Date Type Department Care Team ([facility] st Contact Info) Description 11/26/2023 Telephone [facility] [address], [place] [phone] Cristina Stover MD [address], [place] [phone] Hospital Follow-up Social History Tobacco Use Types [...] from pt requesting a HDF appt. [place] [facility] [place] admission: 11/16/2023 Discharge date: 11/25/2023 Diagnosed: Surgery (amputation) documented in this encounter Plan of Treatment Not on file documented as of this encounter Visit Diagnoses Not on filedocumented in this encounter Care Teams Concrete Pouring Supervisor Relationship Specialty Start Date End Date Cristina Stover MD [address] [place] [id number] PCP - General Family Medicine 05/20/14 12/30/23 Cristina Stover MD [address] [place] [id number] PCP - General Family Medicine 01/06/24 08/29/24 Cristina Stover MD [address] [place] [address] [id number] PCP - General Family Medicine 11/29/24 12/20/24 documented as of this encounter
--- NOTE | 2025-04-25 14:05 | MHC.AM.SUB ---
Intake Visit Reasons: MAT Allergies No Known Allergies (No Known Allergies*) Allergy (Verified 04/13/25 13:53) HPI HPI MAT: Details: He is doing well with no complaints Review of Systems Const All systems reviewed & are unremarkable except as noted in HPI and below Physical Exam Const General: cooperative [facility] Medical History Anemia in chronic kidney disease (CKD) ESRD (end stage renal disease) on dialysis Open wound Opioid use disorder, severe, dependence Bacteremia Volume overload Paroxysmal atrial flutter Cardiomyopathy Pericardial effusion Atrial flutter Need for acute hemodialysis Leukocytosis Anemia Anemia Transfusion history Atrial flutter, paroxysmal COPD (chronic obstructive pulmonary disease) Constipation Callus of foot Seizure Polysubstance abuse CKD (chronic kidney disease) stage 3, GFR 30-59 ml/min Foot osteomyelitis, left Amputation of toe of right foot Diabetic ulcer of right foot Hyperglycemia due to type 2 diabetes mellitus Renal failure Sleep apnea Diabetes HTN (hypertension) Surgical History Hx of right BKA History of surgical procedure (~04/24/23) Social History Household Members: Other Household Members Other:: mother Housing: Apartment Do you presently have visiting nurse or other home services: No Unable to assess alcohol history related to: Unable to respond Alcohol intake: former Comment: bilateral wrist restraints/propofol drip for airway safety Patient Tobacco Use Status: Current everyday Tobacco user Tobacco use type: Cigarette Cigarette Packs Per Day: 0.5 Cigarettes Per Day: 6 Years Smoked: 33 e-Cigarette/Vaping Use: Currently Using Second Hand Smoke Exposure: Yes Substance Use Type: Crack/Cocaine, Heroin, Marijuana and Opiates service: No Assessment & Plan Assessment & Plan (1) Opioid use disorder, severe, dependence: Comment: He is in need of services Code(s): F11.20 - Opioid dependence, uncomplicated Category: Medical Plan: See back as needed. Continue current plan Medications: New buprenorphine-naloxone 8-2 mg (Suboxone) 1 film sublingual TID 90 ea 0RF 30 days
== END 2025-03-18 16:32 | disposition home or self-care (01) ==
LOC: HO.HCC 16:32
PROVIDERS: Visit Provider Internal Medicine
DX: F11.20 Opioid dependence, uncomplicated (principal)
CPT/HCPCS: 99213

== ENCOUNTER → 2025-03-18 16:32 | Outpatient (BNVA) | payer MEDICAID, SELFPAY | PROVIDERS: Visit Provider Internal Medicine | DX: F11.20 Opioid dependence, uncomplicated (principal); Z51.81 Encounter for therapeutic drug level monitoring | CPT/HCPCS: 99212 ==

== ENCOUNTER 2025-04-13 12:57 | Outpatient (AMB) | payer MEDICAID, SELFPAY ==
--- NOTE | 2025-04-13 13:33 | MHC.OFFVIS ---
Intake Visit Reasons: MAT visit Allergies No Known Allergies [No Known Allergies*] Allergy (Verified 04/13/25 13:53) HPI HPI MAT visit: Details: He is in need of services,right leg BKA and with malignancy. He has felt dose suitable and no withdrawal and no cravings. [facility] Medical History Anemia in chronic kidney disease (CKD) ESRD (end stage renal disease) on dialysis Open wound Opioid use disorder, severe, dependence Bacteremia Volume overload Paroxysmal atrial flutter Cardiomyopathy Pericardial effusion Atrial flutter Need for acute hemodialysis Leukocytosis Anemia Anemia Transfusion history Atrial flutter, paroxysmal COPD (chronic obstructive pulmonary disease) Constipation Callus of foot Seizure Polysubstance abuse CKD (chronic kidney disease) stage 3, GFR 30-59 ml/min Foot osteomyelitis, left Amputation of toe of right foot Diabetic ulcer of right foot Hyperglycemia due to type 2 diabetes mellitus Renal failure Sleep apnea Diabetes HTN (hypertension) Surgical History Hx of right BKA History of surgical procedure (~04/24/23) Social History Household Members: Other Household Members Other:: mother Housing: Apartment Do you presently have visiting nurse or other home services: No Unable to assess alcohol history related to: Unable to respond Alcohol intake: former Comment: bilateral wrist restraints/propofol drip for airway safety Patient Tobacco Use Status: Current everyday Tobacco user Tobacco use type: Cigarette Cigarette Packs Per Day: 0.5 Cigarettes Per Day: 6 Years Smoked: 33 e-Cigarette/Vaping Use: Currently Using Second Hand Smoke Exposure: Yes Substance Use Type: Crack/Cocaine, Heroin, Marijuana and Opiates service: No Review of Systems Const All systems reviewed & are unremarkable except as noted in HPI and below Physical Exam Const General: cooperative Assessment & Plan Assessment & Plan (1) Opioid use disorder, severe, dependence: Comment: He is in need of services Code(s): F11.20 - Opioid dependence, uncomplicated Category: Medical Plan: Would continue Suboxone 8/2 tid,90 and two refills. See in three months. Orders: Orders AMB 14 Panel Urine Drug Screen Today Z51.81 - Encounter for therapeutic drug level monitoring Medications: New buprenorphine-naloxone 8-2 mg (Suboxone) 1 film sublingual TID 90 ea 2RF 30 days Coding Level of Care Code Est Pt Level 3 (13466) Diagnoses Opioid use disorder, severe, dependence F11.20
--- OUTSIDE RECORDS SUMMARY | 2025-04-13 14:28 | XMS_ITS | Encounter Summary ---
Author Organization [facility] Address [address] [facility] [address] [place] [address] Phone Care Team Providers Care Production Technologist Name Role Phone Ck, Cristina Montano MD Primary Care Provider U navailable Reason for Visit * Reason Comments Med Refill Encounter Details Date Type Department Care Team (Late st Contact Info) Description 01/04/2022 Refill [facility] [address] [facility] [address] [place] [address] Rick Hurd MD [address] [facility] [address] [place] [address] Social History Tobacco Use Types [...] on filedocumented in this encounter Care Teams Production Technologist Relationship Specialty Start Date End Date Lucas, Cristina Montano MD PCP - General 11/13/20 documented as of this encounter
== END 2025-04-13 14:05 | disposition home or self-care (01) ==
LOC: HO.HCC 12:57
PROVIDERS: Visit Provider Internal Medicine
DX: F11.20 Opioid dependence, uncomplicated (principal)
CPT/HCPCS: 99213

== ENCOUNTER → 2025-04-13 12:57 | Outpatient (BNVA) | payer MEDICAID, SELFPAY | PROVIDERS: Visit Provider Internal Medicine | DX: F11.20 Opioid dependence, uncomplicated (principal) | CPT/HCPCS: 99212 ==

== ENCOUNTER → 2025-05-03 23:59 | Outpatient (BNV) | payer MEDICAID, SELFPAY | PROVIDERS: PCP Internal Medicine; Visit Provider Internal Medicine Nephrology | DX: N18.6 End stage renal disease (principal) | CPT/HCPCS: 90961 ==

== ENCOUNTER 2025-05-09 05:33 | Observation (INO) | payer MEDICAID, SELFPAY ==
[2025-05-09] VITALS (9 sets, daily range): BP systolic 115–188; BP diastolic 65–95; PULSE 85–110; RESP 13–20; TEMP 36–37.1; O2SAT 96–100; BMI 26.6
--- NOTE | 2025-05-09 | ECG_ITS ---
Test Reason : dyspnea Blood Pressure : */* mmHG Vent. Rate : 90 BPM Atrial Rate : 90 BPM P-R Int : 232 ms QRS Dur : 96 ms QT Int : 386 ms P-R-T Axes : 55 45 64 degrees QTcB Int : 472 ms Sinus rhythm with 1st degree A-V block Cannot rule out Anterior infarct , age undetermined Abnormal ECG When compared with ECG of 17-Dec-2024 20:22, MS interval has increased Referred By: Mirlande Bella Electronically Signed By: Fabio Whitten
--- NOTE | ~2025-05-09 | XR_ITS ---
EXAMINATION: XR CHEST 1 VIEW HISTORY: SOB COMPARISON: Comparison is made with the prior examination dated 12/17/2024. FINDINGS: Two AP portable views of the chest performed at 8:34 AM are submitted. A right-sided dialysis catheter is unchanged in position. The lungs are expanded and clear. There is no pleural effusion, pneumothorax, or pulmonary vascular congestion. The heart is normal in size. The bones are intact. XR/XR chest 1V IMPRESSION: No acute cardiopulmonary abnormality. Electronically signed by: García Loza MD 05/09/2025 08:58 AM EDT
--- OUTSIDE RECORDS SUMMARY | 2025-05-09 05:58 | XMS_ITS | Encounter Summary ---
Author Organization [facility] Address [address] [facility] [address] [place] [address] Phone Care Team Providers Care Light Fixture Servicer Name Role Phone [place], Cristina Montano MD Primary Care Provider U navailable Reason for Visit * Reason Comments Med Refill Encounter Details Date Type Department Care Team (Late st Contact Info) Description 01/04/2022 Refill [facility] [address] [facility] [address] [place] [address] Rick Hurd MD [address] [facility] [address] [place] [address] Social History Tobacco Use Types [...] on filedocumented in this encounter Care Teams Light Fixture Servicer Relationship Specialty Start Date End Date [place], Cristina Montano MD PCP - General 11/13/20 documented as of this encounter
--- OUTSIDE RECORDS SUMMARY | 2025-05-09 05:58 | XMS_ITS | Encounter Summary ---
Author Organization [facility] Address [address] [facility] [address] [place] [address] Care Team Providers Care Spot Welder Line Name Role Phone Unavailable Primary Care Provider Unavailabl e Reason for Visit * Reason Comments Med Refill Encounter Details Date Type Department Care Team (Late st Contact Info) Description 01/26/[address] [facility] [address] [place] [address] Araseli Rucker, ANP [address] [place] [address] Other insomnia Social History Tobacco Use Types [...]
[2025-05-09 06:04] LABS: Hematocrit 36.1 % (42.0-52.0); Hemoglobin 11.9 g/dl (14.0-18.0); Imm Gran Abs Auto 0.05 X10*3/uL (0.00-0.03); Imm Gran Pct Auto 0.4 % (0.0-0.4); Lymphocytes Absolute Auto 1.2 X10*3/uL (1.2-4.9); MANUAL DIFF FLAG NO; Mean Corpuscular HGB Conc 33.0 g/dl (31.0-36.0); Mean Corpuscular Hemoglobin 29.2 pg (27.0-33.0); Mean Corpuscular Volume 88.5 fL (80.0-98.0); NRBC Abs Auto 0.000 X10*3/uL (0.0-0.012); NRBC Pct Auto 0.0 /100WBC (0.0-0.2); Platelet Count 253 X10*3/uL (160-400); Red Blood Count 4.08 X10*6/uL (4.60-5.80); White Blood Count 12.8 X10*3/uL (4.8-10.8)
[2025-05-09 06:07] LABS: Venous Blood Gas Refer to POC result
[2025-05-09 06:09] LABS: VBG HCO3 28 mmol/L (22-26); VBG O2 % Saturation 57.0 %
--- NOTE | 2025-05-09 06:17 | PC.NURSE ---
R BKA, open approx. 2x2 inch wound on stump. area around wound looks clean and well cared for but inside has pus. sleeve over stump was visibly dirty and unwashed. no odor from stump. denies fever but was diaphoretic
[2025-05-09 06:27] LABS: Alanine Aminotransferase 9 U/L (0-40); Albumin Level 3.6 g/dL (3.5-5.0); Alkaline Phosphatase 100 U/L (39-117); Anion Gap 23 (12-20); Aspartate Amino Transferase 38 U/L (5-37); Blood Urea Nitrogen 47 mg/dL (9-16); Calcium 8.3 mg/dL (8.4-10.2); Carbon Dioxide 22 mmol/L (22-29); Chloride 95 mmol/L (96-108); Creatinine Clr Calc Pharmacy 12.2; Estimated Glomerular Filt Rate 8; Potassium 5.2 mmol/L (3.3-5.1); Sodium 135 mmol/L (135-145); Total Protein 8.4 g/dL (6.5-8.0)
[2025-05-09 06:28] LABS: Troponin-I High Sensitivity 3325.1 ng/L (<3.5-35.0)
--- NOTE | 2025-05-09 06:37 | PC.NURSE ---
trop elevated, pt denies chest pain, discomfort, SOB.
[2025-05-09 06:41] LABS: Resp Syncy Virus RNA Qual PCR NEGATIVE (Negative); SARS COV2 PCR INHOUSE NEGATIVE (Negative)
--- NOTE | 2025-05-09 07:02 | ED.GENADULT ---
HPI - General Adult General Chief complaint: General Medical Stated complaint: dialysis, diaphoretic not speaking sentences, O2 Time Seen by Provider: 05/09/25 07:02 Source: patient, family, EMS and RN notes reviewed Mode of arrival: EMS Limitations: no limitations History of Present Illness ED Provider: Dr. Mirlande Bella HPI narrative: 44-year-old male with extensive past medical history including ESRD on dialysis Friday, right BKA, chronic nonhealing wounds on his stump, diabetes, hypertension, opioid use disorder, among many others presenting with altered mental status from home today. EMS reports they were called out to the patient's home while his mother was trying to get him ready for dialysis today, the patient was reportedly ?not acting right?. Reportedly nonverbal and unable to follow commands at that time. EMS reports the patient was pale, diaphoretic with an oxygen level of 67% on room air and a heart rate in the 130s. Patient is now alert and oriented, speaking in full sentences and has no evidence of this episode on exam. He has no complaints at this time. Denies chest pain or difficulty breathing. Had been feeling well prior to this. He admits that he needs dialysis? feels water logged? but otherwise does not have any complaints. Admits he does have sleep apnea and thought that maybe this was what was going on prior to his arrival here. He went out last night with friends but denies alcohol or drug use. He admits that he has not been sleeping well over the last several days because of anxiety surrounding access to a new car and his wheelchair. Related Data Home Medications ?Medication ?Instructions ?Recorded ?Confirmed insulin lispro 100 unit/mL See Protocol subcut TIDAC 09/28/24 12/17/24 subcutaneous pen (Humalog KwikPen (U-100) Insulin) melatonin 5 mg tablet 5 mg PO BEDTIME PRN insomnia 09/28/24 12/17/24 insulin glargine 100 unit/mL (3 10 unit subcut BEDTIME 12/17/24 12/17/24 mL) subcutaneous pen sevelamer carbonate 800 mg tablet 1,600 mg PO TID 12/17/24 12/17/24 Previous Rx's ?Medication ?Instructions ?Recorded Dakins solution 1/4 strength #1 ea 09/25/24 amiodarone 200 mg tablet 200 mg PO DAILY #90 tabs 09/25/24 apixaban 5 mg tablet (Eliquis) 5 mg PO BID #180 tabs 09/25/24 atorvastatin 40 mg tablet 40 mg PO BEDTIME #30 tabs 09/25/24 calcitriol 0.25 mcg capsule 0.5 mcg (2 x 0.25 mcg) PO DAILY 09/25/24 #60 caps calcium acetate(phosphat bind) 667 1,334 mg (2 x 667 mg) PO TIDWM 09/25/24 mg capsule #120 caps multivitamin 1 tab PO DAILY #30 tabs 09/25/24 omeprazole 20 mg capsule,delayed 20 mg PO DAILY@0630 #30 caps 09/25/24 release pen needle, diabetic 32 gauge x #100 ea 09/25/2411/06 blood sugar diagnostic (FreeStyle #100 ea 09/29/24 Lite Strips) blood-glucose meter #1 ea 09/29/24 lancets 28 gauge (FreeStyle #100 ea 09/29/24 Lancets) metoprolol succinate 50 mg 50 mg PO DAILY #90 tabs 10/13/24 tablet,extended release 24 hr midodrine 5 mg tablet 5 mg PO BID #60 tabs 10/13/24 torsemide 20 mg tablet 80 mg PO BID #180 tabs 10/13/24 oxycodone 5 mg tablet 10 mg (2 x 5 mg) PO Q12H PRN Pain, 11/25/24 Moderate(Pain Scale 4-6) #20 tabs polyethylene glycol 3350 17 gram 17 g PO DAILY PRN Constipation 11/25/24 oral powder packet #120 ea doxycycline hyclate 100 mg tablet 100 mg PO BID #14 tabs 12/22/24 oxycodone 10 mg tablet 10 mg PO Q8H PRN pain (scale score 12/23/24 7-10) #12 tabs buprenorphine 8 mg-naloxone 2 mg 1 film sublingual TID #42 ea 01/24/25 sublingual film buprenorphine 8 mg-naloxone 2 mg 3 film buccal DAILY 7 days #21 ea 02/18/25 sublingual film (Suboxone) buprenorphine 8 mg-naloxone 2 mg 3 film buccal Q24H 10 days #30 ea 03/08/25 sublingual film (Suboxone) buprenorphine 8 mg-naloxone 2 mg 1 film sublingual TID 30 days #90 03/18/25 sublingual film (Suboxone) ea buprenorphine 8 mg-naloxone 2 mg 1 film sublingual TID 30 days #04/13/25 sublingual film (Suboxone) ea buprenorphine 8 mg-naloxone 2 mg 1 film sublingual TID 30 days #04/13/25 sublingual film (Suboxone) ea Allergies Allergy/AdvReac Type Severity Reaction Status Date / Time No Known Allergies (No Known Allergy Verified 05/09/25 05:43 Allergies*) Review of Systems Review of Systems: Yes all other systems are reviewed and are negative (As per HPI) [facility] Past Medical History Attestation statement: The following information was validated with the patient. [facility] Narrative: Diabetes, hypertension, hyperlipidemia, on dialysis Friday, current smoker Source: old records reviewed and nursing notes reviewed Medical History Anemia in chronic kidney disease (CKD) ESRD (end stage renal disease) on dialysis Open wound Opioid use disorder, severe, dependence Bacteremia Volume overload Paroxysmal atrial flutter Cardiomyopathy Pericardial effusion Atrial flutter Need for acute hemodialysis Leukocytosis Anemia Anemia Transfusion history Atrial flutter, paroxysmal COPD (chronic obstructive pulmonary disease) Constipation Callus of foot Seizure Polysubstance abuse CKD (chronic kidney disease) stage 3, GFR 30-59 ml/min Foot osteomyelitis, left Amputation of toe of right foot Diabetic ulcer of right foot Hyperglycemia due to type 2 diabetes mellitus Renal failure Sleep apnea Diabetes HTN (hypertension) Surgical History Hx of right BKA History of surgical procedure (~04/24/23) Social History Social History Household Members: Other Household Members Other:: mother Housing: Apartment Do you presently have visiting nurse or other home services: No Unable to assess alcohol history related to: Unable to respond Alcohol intake: former Comment: bilateral wrist restraints/propofol drip for airway safety Patient Tobacco Use Status: Current everyday Tobacco user Tobacco use type: Cigarette Cigarette Packs Per Day: 0.5 Cigarettes Per Day: 6 Years Smoked: 33 Smoked in Last 30 Days: Yes e-Cigarette/Vaping Use: Currently Using Second Hand Smoke Exposure: Yes Use of substances other than those prescribed or required for medical reasons: Yes Substance Use Type: Marijuana Substance Use Frequency: Occasionally Advance Directives: No Advance Directives Information Provided: No service: No Physical Exam ED Vital Signs: Vital Signs - 24 hr 05/09/25 05:42 05/09/25 06:36 05/09/25 07:07 Temperature 98.7 F 98.2 F Pulse Rate 102 H 95 92 Respiratory Rate 18 13 18 Blood Pressure 120/67 139/66 Pulse Oximetry 96 97 97 Oxygen Delivery Method Room Air Room Air BMI result Body Mass Index 26.6 GENERAL: Ill-Appearing, appears comfortable, NAD. SKIN: Normal skin color for ethnicity, warm, dry, multiple excoriated wounds noted on the bilateral upper and lower extremities of various stages of healing, open pressure ulcer noted on the inferior edge of the stump, no erythema surrounding the wound, no pus drainage, subcu fat is exposed. HEENT: Normocephalic, atraumatic, no stridor, dry mucous membranes, dentition intact, EOMI, PERRLA. NECK: Soft, supple, full ROM, midline structures nontender, no step-offs, no deformities, no lymphadenopathy. CHEST: Heart regular tachycardia, no murmurs, symmetric chest rise and fall. PULMONARY: Clear to auscultation bilaterally, diminished at the bases, no labored breathing, no wheezes/rhales/rhonchi. ABDOMINAL: Soft, nondistended, nontender, positive bowel sounds in all quadrants. : Deferred. MUSCULOSKELETAL: Right lower extremity BKA, multiple toe amputations in the left, neurovascularly intact distally. NEURO: Alert and oriented x3, CN II through XII intact, equal strength and sensation bilateral upper and lower extremities, no focal neurologic deficits. PSYCHIATRIC: Flat affect, fluid speech, good eye contact and appropriate demeanor. Course Reevaluation(s) Reevaluation #1: Patient was signed out to hi 07:[address] Bella waiting for the 2nd trop which is flat. Patient will need to come in he had syncopal episode also need dialysis today discussed with the hospitalist Time: 08:57 Medications Administered Discontinued Medications Generic Name Dose Route Start Last Admin Trade Name Freq PRN Reason Stop Dose Admin Aspirin 324 mg 05/09/25 06:45 05/09/25 07:56 Aspirin 81 Mg Tab.Chew PO 05/09/25 06:46 324 mg ONCE ONE Administration Medical Decision Making Medical Decision Making [facility] Narrative: Patient presents today with a chief complaint of altered mental status. Differential diagnosis for AMS is incredibly broad and includes infection, intracranial process such as hemorrhage, stroke or mass, electrolyte abnormality, hypercarbia, hypoxia, toxic encephalopathy, among many others. Broad-based workup was initiated to further evaluate the etiology of patient's symptoms based on the above exam and history. 7:30 a.m. patient's initial cardiac enzyme is significantly elevated at greater than 3300. He does have significantly worsening renal failure and will need dialysis today. I feel that his elevated cardiac enzyme is more likely related to the renal failure. He has no active chest pain or shortness of breath at this time. It is possible he had a cardiac event over the weekend, particularly related to drug use however, I do not feel this is ACS or STEMI. EKG is not ischemic. Awaiting 2nd cardiac enzyme, given a dose of p.o. aspirin, signing out to oncoming provider pending cardiac enzyme and admission. Differential Diagnosis Differential Diagnoses: The differential diagnosis associated with the presentation includes (As above) Admission/Observation Consideration of admission/observation: Escalation of care including admission/observation considered Consult Healthcare Provider Management of the patient was discussed with: Hospitalist Lab Data [facility] Lab Attestation statement: I reviewed the patient's lab results. 05/09/25 05:54 05/09/25 05:54 Labs: Lab Results 05/09/25 05/09/25 05/09/25 Range/Units 05:54 06:03 07:10 WBC 12.8 H (4.8-10.8) X10*3/uL RBC 4.08 L (4.60-5.80) X10*6/uL Hgb 11.9 L D (14.0-18.0) g/dl Hct 36.1 L (42.0-52.0) % MCV 88.5 (80.0-98.0) fL MCH 29.2 (27.0-33.0) pg MCHC 33.0 (31.0-36.0) g/dl RDW 15.4 (11.0-16.0) % Plt Count 253 (160-400) X10*3/uL MPV 10.7 (9.4-12.4) fL Immature Gran % (Auto) 0.4 (0.0-0.4) % Neut % (Auto) 82.4 H (45-73) % Lymph % (Auto) 9.3 L (20-40) % [place] % (Auto) 5.6 (2-11) % Eos % (Auto) 1.9 (0-4) % Baso % (Auto) 0.4 (0-2) % Lymph # (Auto) 1.2 (1.2-4.9) X10*3/uL [place] # (Auto) 0.7 (0.1-1.2) X10*3/uL Eos # (Auto) 0.2 (0.0-0.4) X10*3/uL Baso # (Auto) 0.1 (0.0-0.2) X10*3/uL Abs Immat Gran (auto) 0.05 H (0.00-0.03) X10*3/uL Absolute Neuts (auto) 10.6 H (2.0-8.3) x10*3/uL Absolute Nucleated RBC 0.000 (0.0-0.012) X10*3/uL Nucleated RBC % (auto) 0.0 (0.0-0.2) /100WBC VBG pH 7.28 L (7.32-7.43) VBG pCO2 58 mmHg VBG pO2 42 mmHg VBG HCO3 28 H (22-26) mmol/L VBG O2 Saturation 57.0 % VBG Base Excess 0.4 mmol/L Sodium 135 (135-145) mmol/L Potassium 5.2 H D (3.3-5.1) mmol/L Chloride 95 L (96-108) mmol/L Carbon Dioxide 22 (22-29) mmol/L Anion Gap 23 H (12-20) BUN 47 H (9-16) mg/dL Creatinine 7.56 H* (0.5-1.4) mg/dL Estim Creat Clear Calc 12.2 Estimated GFR 8 POC Glucose 108 (60-115) mg/dL Random Glucose 118 H (60-115) mg/dL Lactic Acid 1.0 (0.5-2.0) mmol/L Calcium 8.3 L (8.4-10.2) mg/dL Total Bilirubin 0.4 (0.0-1.0) mg/dL AST 38 H (5-37) U/L ALT 9 (0-40) U/L Alkaline Phosphatase 100 (39-117) U/L Troponin I High Sens 3325.1 H* D (<3.5-35.0) ng/L Total Protein 8.4 H (6.5-8.0) g/dL Albumin 3.6 (3.5-5.0) g/dL Ethyl Alcohol < 10 mg/dL Influenza Type A (PCR) NEGATIVE (Negative) Influenza Type B (PCR) NEGATIVE (Negative) RSV RNA Qual (PCR) NEGATIVE (Negative) SARS-CoV-2 RNA (RT-PCR) NEGATIVE (Negative) 05/09/25 Range/Units 07:36 WBC (4.8-10.8) X10*3/uL RBC (4.60-5.80) X10*6/uL Hgb (14.0-18.0) g/dl Hct (42.0-52.0) % MCV (80.0-98.0) fL MCH (27.0-33.0) pg MCHC (31.0-36.0) g/dl RDW (11.0-16.0) % Plt Count (160-400) X10*3/uL MPV (9.4-12.4) fL Immature Gran % (Auto) (0.0-0.4) % Neut % (Auto) (45-73) % Lymph % (Auto) (20-40) % [place] % (Auto) (2-11) % Eos % (Auto) (0-4) % Baso % (Auto) (0-2) % Lymph # (Auto) (1.2-4.9) X10*3/uL [place] # (Auto) (0.1-1.2) X10*3/uL Eos # (Auto) (0.0-0.4) X10*3/uL Baso # (Auto) (0.0-0.2) X10*3/uL Abs Immat Gran (auto) (0.00-0.03) X10*3/uL Absolute Neuts (auto) (2.0-8.3) x10*3/uL Absolute Nucleated RBC (0.0-0.012) X10*3/uL Nucleated RBC % (auto) (0.0-0.2) /100WBC VBG pH (7.32-7.43) VBG pCO2 mmHg VBG pO2 mmHg VBG HCO3 (22-26) mmol/L VBG O2 Saturation % VBG Base Excess mmol/L Sodium (135-145) mmol/L Potassium (3.3-5.1) mmol/L Chloride (96-108) mmol/L Carbon Dioxide (22-29) mmol/L Anion Gap (12-20) BUN (9-16) mg/dL Creatinine (0.5-1.4) mg/dL Estim Creat Clear Calc Estimated GFR POC Glucose (60-115) mg/dL Random Glucose (60-115) mg/dL Lactic Acid (0.5-2.0) mmol/L Calcium (8.4-10.2) mg/dL Total Bilirubin (0.0-1.0) mg/dL AST (5-37) U/L ALT (0-40) U/L Alkaline Phosphatase (39-117) U/L Troponin I High Sens 2867.7 H* (<3.5-35.0) ng/L Total Protein (6.5-8.0) g/dL Albumin (3.5-5.0) g/dL Ethyl Alcohol mg/dL Influenza Type A (PCR) (Negative) Influenza Type B (PCR) (Negative) RSV RNA Qual (PCR) (Negative) SARS-CoV-2 RNA (RT-PCR) (Negative) Independent Interpretation I performed an independent interpretation of an: EKG, Plain X-Ray, Ultrasound and CT Scan Radiology Impression Discussion of test interpretation with radiology: I have reviewed the radiologist's reading. Independent Historian Clinical information obtained from an independent historian. History obtained from or confirmed by: EMS External Record Review External record reviewed: Inpatient record Chronic Conditions Patient?s care impacted by: Diabetes, Hypertension and Other (ESRD on dialysis) Social Determinants Patient?s care significantly limited by Social Determinants of Health including: Other Social Determinant of Health Discharge Plan Discharge Clinical Impression: ESRD needing dialysis, Elevated troponin Syncope Qualifiers: Syncope type: unspecified Qualified Code(s): R55 - Syncope and collapse Patient Disposition: Admitted As Inpatient Print Language: Bruneian
--- NOTE | 2025-05-09 07:27 | PC.NURSE ---
pt currently a&ox3, vss, rt chest port intact, rr equal/non labored, pt has repeat trop ordered tech to obtain. pt has dialysis m,w,f has not had dialysis today. wound to rt bka area, wounds to lle- lt toes amputated, call arcos within reach, plan of care ongoing.
[2025-05-09 07:33] LABS: Glucose, Whole Blood 108 mg/dL (60-115)
[2025-05-09 08:24] LABS: Troponin-I High Sensitivity 2867.7 ng/L (<3.5-35.0)
--- NOTE | 2025-05-09 09:17 | P.HPHOSP_ITS ---
History of Present Illness Date of Service: 05/09/25 Chief Complaint: syncope The patient is a 44-year-old male with a past medical history significant for ESRD on hemodialysis Friday, right BKA, left TMA, chronic nonhealing wounds, diabetes, hypotension, opiate use disorder on Suboxone and multiple others who presents from home after what appears to be the history is from the mother who is bedside. Apparently this morning the patient ambulated to the bathroom, getting ready for his morning dialysis. Subsequent to this, the mother found the patient sitting on a chair, not acting right.? Apparently at this time he was unable to follow commands. Upon arrival of EMS the patient was noted to be pale and diaphoretic with oxygen level of 67% on room air and heart rate in the 130s. By the time the patient arrived to the emergency room the patient was alert and oriented x3 with normal vital signs. He denied any chest pain or complaints in general. He reports feeling at his baseline self currently as well as the evening prior to hospitalization. He reports his last dialysis session was on Friday. In the emergency room the patient was evaluated for his syncope and workup revealed an elevated troponin of over 3000 which is downtrending now. EKG without any ischemic changes. Given these findings, the patient will be admitted for further workup and evaluation. Review of Systems 2 Review of Systems: Negative except HPI/interval history. [facility] Medical History Anemia in chronic kidney disease (CKD) ESRD (end stage renal disease) on dialysis Open wound Opioid use disorder, severe, dependence Bacteremia Volume overload Paroxysmal atrial flutter Cardiomyopathy Pericardial effusion Atrial flutter Need for acute hemodialysis Leukocytosis Anemia Anemia Transfusion history Atrial flutter, paroxysmal COPD (chronic obstructive pulmonary disease) Constipation Callus of foot Seizure Polysubstance abuse CKD (chronic kidney disease) stage 3, GFR 30-59 ml/min Foot osteomyelitis, left Amputation of toe of right foot Diabetic ulcer of right foot Hyperglycemia due to type 2 diabetes mellitus Renal failure Sleep apnea Diabetes HTN (hypertension) Surgical History Hx of right BKA History of surgical procedure (~04/24/23) Social History Household Members: Other Household Members Other:: mother Housing: Apartment Do you presently have visiting nurse or other home services: No Unable to assess alcohol history related to: Unable to respond Alcohol intake: former Comment: bilateral wrist restraints/propofol drip for airway safety Patient Tobacco Use Status: Current everyday Tobacco user Tobacco use type: Cigarette Cigarette Packs Per Day: 0.5 Cigarettes Per Day: 6 Years Smoked: 33 e-Cigarette/Vaping Use: Currently Using Second Hand Smoke Exposure: Yes Substance Use Type: Marijuana service: No Meds Allergies Allergy/AdvReac Type Severity Reaction Status Date / Time No Known Allergies (No Known Allergy Verified 05/09/25 05:43 Allergies*) Active Medications: Current Medications Acetaminophen (Acetaminophen 325 Mg Tablet) 650 mg PO Q6H PRN PRN Reason: Pain, Mild 1-3,fever,headache Calcium Carbonate (Calcium Carbonate 750 Mg Tab.Chew) 750 mg PO Q4H PRN PRN Reason: Heartburn Magnesium Hydroxide (Milk Of Magnesia 30 Ml Oral.Susp) 30 ml PO DAILY PRN PRN Reason: Constipation Melatonin (Melatonin 3 Mg Tablet) 6 mg PO BEDTIME PRN PRN Reason: Insomnia Sodium Chloride (0.9 % Sodium Chloride Flush 3 Ml Syringe) [address] [facility] Home Medications ?Medication ?Instructions ?Recorded ?Confirmed ?Last Taken ?Type insulin lispro 100 unit/mL See Protocol subcut TIDAC 1 11/28/23 05/09/25 11/04/24 History subcutaneous pen (Humalog KwikPen (U-100) Insulin) melatonin 5 mg tablet 5 mg PO BEDTIME PRN insomnia 09/28/24 05/09/25 11/04/24 History insulin glargine 100 unit/mL (3 15 unit subcut BEDTIME 12/17/24 05/09/25 Unknown History mL) subcutaneous pen buprenorphine 8 mg-naloxone 2 mg 1 film sublingual TID 05/09/25 05/09/25 05/08/25 History sublingual film (Suboxone) Physical Exam 2 Vital Signs and Narrative: Vital Signs: Last Vital Signs Temp 98.2 F 05/09/25 07:07 Pulse 92 05/09/25 07:07 Resp 18 05/09/25 07:07 BP 139/66 05/09/25 06:36 Pulse Ox 97 05/09/25 07:07 O2 Del Method Room Air 05/09/25 06:36 BMI result Body Mass Index 26.6 Const: Other: Constitutional - Awake and Alert, No apparent distress Eyes - PERRLA, EOMI Cardiovascular - S1S2, RRR, No edema Respiratory - Normal lung expansion, Normal respiratory effort, No respiratory distress, CTA bilaterally Gastrointestinal - NT / ND; +BS; No rebound or guarding - No CVA tenderness Extremities - no calf tenderness bilaterally, no swelling Musculoskeletal - R BKA; L TMA Skin - R BKA stump site with superficial ulceration; clean and without drainage Neurological - Alert & oriented x3, No focal deficit Psychological - Appropriate affect Results Labs 05/09/25 05:54 05/09/25 05:54 Labs: Laboratory Results - last 24 hr 05/09/25 05/09/25 05/09/25 05:54 06:03 07:10 MCV 88.5 MCH 29.2 MCHC 33.0 RDW 15.4 Plt Count 253 MPV 10.7 Immature Gran % (Auto) 0.4 Neut % (Auto) 82.4 H Lymph % (Auto) 9.3 L [place] % (Auto) 5.6 Eos % (Auto) 1.9 Baso % (Auto) 0.4 Lymph # (Auto) 1.2 [place] # (Auto) 0.7 Eos # (Auto) 0.2 Baso # (Auto) 0.1 Abs Immat Gran (auto) 0.05 H Absolute Neuts (auto) 10.6 H Absolute Nucleated RBC 0.000 Nucleated RBC % (auto) 0.0 VBG pH 7.28 L VBG pCO2 58 VBG pO2 42 VBG HCO3 28 H VBG O2 Saturation 57.0 VBG Base Excess 0.4 Anion Gap 23 H Estim Creat Clear Calc 12.2 Estimated GFR 8 POC Glucose 108 Random Glucose 118 H Lactic Acid 1.0 Calcium 8.3 L Total Bilirubin 0.4 AST 38 H ALT 9 Alkaline Phosphatase 100 Troponin I High Sens 3325.1 H* D Total Protein 8.4 H Albumin 3.6 Ethyl Alcohol < 10 Influenza Type A (PCR) NEGATIVE Influenza Type B (PCR) NEGATIVE RSV RNA Qual (PCR) NEGATIVE SARS-CoV-2 RNA (RT-PCR) NEGATIVE 05/09/25 07:36 MCV MCH MCHC RDW Plt Count MPV Immature Gran % (Auto) Neut % (Auto) Lymph % (Auto) [place] % (Auto) Eos % (Auto) Baso % (Auto) Lymph # (Auto) [place] # (Auto) Eos # (Auto) Baso # (Auto) Abs Immat Gran (auto) Absolute Neuts (auto) Absolute Nucleated RBC Nucleated RBC % (auto) VBG pH VBG pCO2 VBG pO2 VBG HCO3 VBG O2 Saturation VBG Base Excess Anion Gap Estim Creat Clear Calc Estimated GFR POC Glucose Random Glucose Lactic Acid Calcium Total Bilirubin AST ALT Alkaline Phosphatase Troponin I High Sens 2867.7 H* Total Protein Albumin Ethyl Alcohol Influenza Type A (PCR) Influenza Type B (PCR) RSV RNA Qual (PCR) SARS-CoV-2 RNA (RT-PCR) Imaging Radiologist's Impressions: Impressions Chest X-Ray 05/09/25 08:40 IMPRESSION: No acute cardiopulmonary abnormality. Electronically signed by: García Loza MD 05/09/2025 08:58 AM EDT RP Assessment and Plan (1) Opioid use disorder, severe, dependence: Status: Acute Plan 44 yo M with multiple medical problems presenting with what appears to be syncope/near syncope. Noted to have signigicant trop-I elevation. Will be admitted for further eval 1. Syncope appears to be ? cardiac in nature with elevated trop and reported HR of 130s during event monitor on tele cardiology consult 2d echo 2. ESRD on HD MWF Nephrology consult 3. PAF appears to be in sinus current previous cardiology notes from 2023 reviewed -- appeared transiented and was on eliquis short term at that time; does not appear to be on this now 4. DM hold oral; POC + Sliding scale 5. R BKA stump wounds wound care consult doesnt appear acutely infected -- no abx indicated 6. HLD statin Full Code DVT pptx, heparin Quality Stroke Does the patient have a stroke diagnosis?: No VTE Prior VTE?: No VTE Risk Level:: Medical - moderate - high VTE Device Contraindication: N/A - Device Ordered VTE Drug Contraindication: N/A - Med Ordered
--- NOTE | 2025-05-09 11:03 | PHA.MEDREC ---
Addendum entered by Nai Cain [facility] 05/09/25 11:45: MED REC REVIEWED BY [facility] Original Note: Pharmacy Consult ? Medication Reconciliation Pharmacy has completed the medication reconciliation. Spoke with pt and pt mother at bedside. Pt mother stated the pt has been in and out of the hospital for almost a year now and they are not sure what the pt should be taking for meds since they have been changing by [place] in the hospital but pt hasn't seen his PCP to know if he should really stop them. Pt confirmed he at this time he takes his Suboxone 8-2mg films 1 TID, Insulin Glargine 15 units at bedtime, Humalog KwikPen testing TIDAC, injecting per sliding scale, Omeprazole 20mg 1 QD and Oxycodone 10mg 1Q8H PRN for his prescription medications and Melatonin 5mg @BED PRN sleep, Multivitmain 1 QD and Miralax 17g QD PRN constipation for his OTC medications at this time. Pt confirmed he took his Suboxone films yesterday but doesn't know the last time he took everything else and or if he if out of any of these medications. I called Pt pharmacies ([facility] and [facility], confirmed by mother and pt) to confirm those meds and [facility] stated the pt had gotten called in [place] Glargine 11/2024 but pt never got that, pt also had Humalog called in 09/2024 but pt never filled that either. [facility] has no claims for Omeprazole or Oxycodone. I called [facility] pharmacy and they confirmed the pt LF Insulin GLargine with the, 03/21/2023 and Humalog KwikPen was last picked up in 2019 at their facility, Omeprazole L08/2024 for 90 days and Oxycodone 10mg tabs L/04 for 2 days.
[2025-05-09 11:49] LABS: Glucose, Whole Blood 163 mg/dL (60-115)
--- NOTE | 2025-05-09 11:50 | PC.NURSE ---
suboxone administration pt was given suboxone late as the pharmacy hadnt approved the medication to give, this nurse had called pharmacy as it hadnt been approved and it took a while after calling for it to be approved..
[2025-05-09 12:07] LABS: Cannabinoid Screen Urine Not Detected (Not Detect)
--- NOTE | 2025-05-09 12:07 | PC.NURSE ---
to dialysis pt given sandwich and jello, was medicated and sent to dialysis.
--- NOTE | 2025-05-09 12:08 | PC.NURSE ---
hub was notified pt was going to dialysis if they had a I[facility] bed available before dialysis is completed.
--- NOTE | 2025-05-09 13:27 | P.CONCA_ITS ---
History of Present Illness History of Present Illness Date of Service: 05/09/25 Requesting physician: Nik Blum Chief complaint: Syncope, elevated trop Narrative: [age] with background history of drug abuse including heroin and cocaine use. He also had pericardial effusion in the past which has improved based on echocardiography from October 2024. He is presenting with confusion and hypoxia. He has elevated troponin levels. Apparently he has mother found him confused and called EMS and brought him in. He at that time was noticed to be hypoxic with saturations of 67%. He has improved since then at this stage his saturations are back to normal. He is also denying any symptoms. He is not on any supplemental oxygen. He is saying that he used a bag of heroin 1 week ago. His urine drug screen is positive for opiates, cocaine and fentanyl. [facility] Past Medical History Medical History Anemia in chronic kidney disease (CKD) ESRD (end stage renal disease) on dialysis Open wound Opioid use disorder, severe, dependence Bacteremia Volume overload Paroxysmal atrial flutter Cardiomyopathy Pericardial effusion Atrial flutter Need for acute hemodialysis Leukocytosis Anemia Anemia Transfusion history Atrial flutter, paroxysmal COPD (chronic obstructive pulmonary disease) Constipation Callus of foot Seizure Polysubstance abuse CKD (chronic kidney disease) stage 3, GFR 30-59 ml/min Foot osteomyelitis, left Amputation of toe of right foot Diabetic ulcer of right foot Hyperglycemia due to type 2 diabetes mellitus Renal failure Sleep apnea Diabetes HTN (hypertension) Surgical History Surgical History Hx of right BKA History of surgical procedure (~04/24/23) Social History Social History Household Members: Other Household Members Other:: mother Housing: Apartment Do you presently have visiting nurse or other home services: No Unable to assess alcohol history related to: Unable to respond Alcohol intake: former Comment: bilateral wrist restraints/propofol drip for airway safety Patient Tobacco Use Status: Current everyday Tobacco user Tobacco use type: Cigarette Cigarette Packs Per Day: 0.5 Cigarettes Per Day: 6 Years Smoked: 33 Smoked in Last 30 Days: Yes e-Cigarette/Vaping Use: Currently Using Second Hand Smoke Exposure: Yes Use of substances other than those prescribed or required for medical reasons: Yes Substance Use Type: Marijuana Substance Use Frequency: Occasionally Advance Directives: No Advance Directives Information Provided: No service: No Meds Allergies Allergy/AdvReac Type Severity Reaction Status Date / Time No Known Allergies (No Known Allergy Verified 05/09/25 05:43 Allergies*) Active Medications: Current Medications Acetaminophen (Acetaminophen 325 Mg Tablet) 650 mg PO Q6H PRN PRN Reason: Pain, Mild 1-3,fever,headache Buprenorphine/Naloxone (Buprenorphine/Naloxone 8/2 Mg Film) 1 film SUBLINGUAL TID [facility] Last Admin: 05/09/25 11:42 Dose: 1 film Calcium Carbonate (Calcium Carbonate 750 Mg Tab.Chew) 750 mg PO Q4H PRN PRN Reason: Heartburn Heparin Sodium (Porcine) (Heparin Sodium,Porcine 5,000 Unit/Ml Vial) 5,000 unit SUBCUT Q8H [facility] Last Admin: 05/09/25 11:49 Dose: 5,000 unit Insulin Glargine (Insulin Glargine,Hum.Rec.Anlog 100 Unit/Ml 10 Ml Vial) 10 unit SUBCUT BEDTIME [facility] Insulin Human Lispro (Insulin Lispro 100 Unit/Ml 3 Ml Vial) 0 unit SUBCUT QIDACHS [facility]; Protocol Last Admin: 05/09/25 11:49 Dose: 2 unit Magnesium Hydroxide (Milk Of Magnesia 30 Ml Oral.Susp) 30 ml PO DAILY PRN PRN Reason: Constipation Melatonin (Melatonin 3 Mg Tablet) 6 mg PO BEDTIME PRN PRN Reason: Insomnia Multivitamins/Vitamin C (Multivitamin Tablet) 1 tab PO DAILY [facility] Oxycodone HCl (Oxycodone Hcl Immed Release 5 Mg Tablet) 10 mg PO Q8H PRN PRN Reason: pain (scale score 7-10) Sodium Chloride (0.9 % Sodium Chloride Flush 3 Ml Syringe) 3 ml IVFLUSH QSHIFT [facility] Home Medications ?Medication ?Instructions ?Recorded ?Confirmed ?Last Taken ?Type insulin lispro 100 unit/mL See Protocol subcut TIDAC 1 11/28/23 05/09/25 11/04/24 History subcutaneous pen (Humalog KwikPen (U-100) Insulin) melatonin 5 mg tablet 5 mg PO BEDTIME PRN insomnia 09/28/24 05/09/25 11/04/24 History insulin glargine 100 unit/mL (3 15 unit subcut BEDTIME 12/17/24 05/09/25 Unknown History mL) subcutaneous pen buprenorphine 8 mg-naloxone 2 mg 1 film sublingual TID 05/09/25 05/09/25 05/08/25 History sublingual film (Suboxone) Physical Exam 2 Vital Signs: Vital Signs: Last Vital Signs Temp 98.0 F 05/09/25 11:47 Pulse 85 05/09/25 11:47 Resp 16 05/09/25 11:47 BP 143/65 H 05/09/25 11:47 Pulse Ox 97 05/09/25 11:47 O2 Del Method Room Air 05/09/25 11:47 BMI result Body Mass Index 26.6 GENERAL APPEARANCE: in no acute distress, pleasant. NECK: no carotid bruit, no jugular venous distention. SKIN: no suspicious lesions, warm and dry. HEART: no murmurs, regular rate and rhythm. LUNGS: clear to auscultation bilaterally. ABDOMEN: soft, nontender. EXTREMITIES: Left leg amputation. PERIPHERAL PULSES: equal. NEUROLOGIC: No gross deficits, AAO X 3 Objective Labs and Meds 05/09/25 05:54 05/09/25 05:54 Lab results: Laboratory Results - last 24 hr 05/09/25 05/09/25 05/09/25 05:54 06:03 07:10 WBC 12.8 H RBC 4.08 L Hgb 11.9 L D Hct 36.1 L MCV 88.5 MCH 29.2 MCHC 33.0 RDW 15.4 Plt Count 253 MPV 10.7 Immature Gran % (Auto) 0.4 Neut % (Auto) 82.4 H Lymph % (Auto) 9.3 L [place] % (Auto) 5.6 Eos % (Auto) 1.9 Baso % (Auto) 0.4 Lymph # (Auto) 1.2 [place] # (Auto) 0.7 Eos # (Auto) 0.2 Baso # (Auto) 0.1 Abs Immat Gran (auto) 0.05 H Absolute Neuts (auto) 10.6 H Absolute Nucleated RBC 0.000 Nucleated RBC % (auto) 0.0 VBG pH 7.28 L VBG pCO2 58 VBG pO2 42 VBG HCO3 28 H VBG O2 Saturation 57.0 VBG Base Excess 0.4 Sodium 135 Potassium 5.2 H D Chloride 95 L Carbon Dioxide 22 Anion Gap 23 H BUN 47 H Creatinine 7.56 H* Estim Creat Clear Calc 12.2 Estimated GFR 8 POC Glucose 108 Random Glucose 118 H Lactic Acid 1.0 Calcium 8.3 L Total Bilirubin 0.4 AST 38 H ALT 9 Alkaline Phosphatase 100 Troponin I High Sens 3325.1 H* D Total Protein 8.4 H Albumin 3.6 Urine Opiates Screen Ur Buprenorphine Scrn Ur Oxycodone Screen Urine Methadone Screen Urine Fentanyl Screen Ur Barbiturates Screen Ur Phencyclidine Scrn Ur Amphetamines Screen U Benzodiazepines Scrn Urine Cocaine Screen U Marijuana (THC) Screen Ethyl Alcohol < 10 Influenza Type A (PCR) NEGATIVE Influenza Type B (PCR) NEGATIVE RSV RNA Qual (PCR) NEGATIVE SARS-CoV-2 RNA (RT-PCR) NEGATIVE 05/09/25 05/09/25 07:36 11:44 WBC RBC Hgb Hct MCV MCH MCHC RDW Plt Count MPV Immature Gran % (Auto) Neut % (Auto) Lymph % (Auto) [place] % (Auto) Eos % (Auto) Baso % (Auto) Lymph # (Auto) [place] # (Auto) Eos # (Auto) Baso # (Auto) Abs Immat Gran (auto) Absolute Neuts (auto) Absolute Nucleated RBC Nucleated RBC % (auto) VBG pH VBG pCO2 VBG pO2 VBG HCO3 VBG O2 Saturation VBG Base Excess Sodium Potassium Chloride Carbon Dioxide Anion Gap BUN Creatinine Estim Creat Clear Calc Estimated GFR POC Glucose 163 H Random Glucose Lactic Acid Calcium Total Bilirubin AST ALT Alkaline Phosphatase Troponin I High Sens 2867.7 H* Total Protein Albumin Urine Opiates Screen POSITIVE H Ur Buprenorphine Scrn Not Detected Ur Oxycodone Screen Not Detected Urine Methadone Screen Not Detected Urine Fentanyl Screen POSITIVE H Ur Barbiturates Screen Not Detected Ur Phencyclidine Scrn Not Detected Ur Amphetamines Screen Not Detected U Benzodiazepines Scrn Not Detected Urine Cocaine Screen POSITIVE H U Marijuana (THC) Screen Not Detected Ethyl Alcohol Influenza Type A (PCR) Influenza Type B (PCR) RSV RNA Qual (PCR) SARS-CoV-2 RNA (RT-PCR) Imaging Radiologist's impression: Impressions Chest X-Ray 05/09/25 08:40 IMPRESSION: No acute cardiopulmonary abnormality. Electronically signed by: García Loza MD 05/09/2025 08:58 AM EDT Assessment and Plan (1) Opioid use disorder, severe, dependence: Status: Acute (2) Elevated troponin: Status: Acute (3) Confusion: Status: Acute Plan Pleasant 44 year gentleman who is here for confusion and hypoxia. Is positive on urine drug screen for opiates, fentanyl and cocaine. His hypoxia and fusion has improved. It is quite likely that he was using drugs and that led to respiratory depression and hypoxia. In any case his troponins are elevated currently and this is in the setting of cocaine use and hypoxia. He has end-stage renal disease. I think he has type 2 elevation of troponin and would not recommend any further workup currently. Complete abstinence from drug use. Baby aspirin 81 mg daily. Thank you for allowing me to participate in the care of your patient. Please feel free to contact me if you have any questions. Procedures Date of Service Date of Service: 05/09/25
--- NOTE | 2025-05-09 16:01 | PM.EVENT ---
Event Note Date of Service: 05/09/25 Event Note: Event Note Asked by RN to evaluate pt during dialysis for withdrawal. Pt seen and examined. Rpeorts anxiety and restlessness. Denies cp or other complaints. UDS noted +opiate, + cocaine. Given his AM suboxone at the time of admission. Given a dose of oral 0.5mg after initial evaluation but pt continued to have symptoms. Evaluated by renal team during dialysis and further meds ordered (IM zyprexa / phergan) for anxiety/withdrawal. Will continue to monitor. Time Spent With Patient Time: Total time managing care of this patient today ____ minutes.
[2025-05-09] MEDS: OLANZapine 10 MG VIAL IM (16:39)
[2025-05-09] MEDS: 0.9 % Sodium Chloride Flush 3 ML SYRINGE IVFLUSH ×2 (16:43→22:03)
[2025-05-09 16:49] LABS: Glucose, Whole Blood 108 mg/dL (60-115)
--- NOTE | 2025-05-09 16:56 | W.PM.DNNEP ---
Subjective Subjective Date of Service: 05/09/25 Principal diagnosis: ESRD This patient was seen during dialysis this afternoon when he had episodes of abnormal movements of his hands and legs along with constant fidgeting. Physical Exam Vital Signs: Vital Signs: Last Vital Signs Temp 96.8 F 05/09/25 16:00 Pulse 105 H 05/09/25 16:00 Resp 20 05/09/25 16:00 BP 143/65 H 05/09/25 11:47 Pulse Ox 100 05/09/25 16:00 O2 Del Method Room Air 05/09/25 16:00 BMI result Body Mass Index 26.6 General: Not in acute distress, tired appearing Nutritional Appearance: well nourished and overweight Eyes: appearance normal, both eyes and all related structures; Alignment and Position: alignment normal and position normal Neck: No lymphadenopathy, no thyromegaly Resp: bilateral air entry equal, occasional added sounds present Cardio: Regular rate, regular rhythm; Heart sounds: S1 normal heart sound present and S2 normal heart sound present GI: soft, nontender, no guarding, no hepatosplenomegaly : bladder normal to inspection, bladder normal to palpation, no renal angle tenderness Skin: no rashes or lesions noted and elasticity normal Neuro: oriented to person, oriented to place, oriented to time and moves all extremities Assessment & Plan Assessment and plan (1) ESRD on dialysis: Status: Acute (2) Acidosis, metabolic, with respiratory acidosis: Status: Acute Plan ESRD on renal replacement therapy through right subclavian Permcath; patient seen during dialysis Continue Friday schedule as long as he is in the hospital Seen during dialysis when he had episodes of abnormal movements and fidgeting, treated with Zyprexa and Phenergan. Resume home sevelamer, calcium acetate and calcitriol. Time Spent With Patient Time: Total time managing care of this patient today ____ minutes. Procedures Date of Service Date of Service: 05/09/25
--- NOTE | 2025-05-09 17:01 | P.CONNP_ITS ---
History of Present Illness Reason for Consult Consult date: 05/09/25 Reason for consult: End-stage renal disease Chief Complaint Chief complaint: Syncope, elevated trop History of Present Illness Narrative: 44-year-old gentleman with past medical history of end-stage renal disease on maintenance hemodialysis M/W/F through right subclavian PermCath, HTN, insulin- dependent type 2 diabetes, HLP, PVD, s/p right BKA, hx of MRSA bacteremia w/ pulmonic valve vegetation, chronic decubitus ulcers, and polysubstance use disorder presented to the ED after a syncopal episode this morning is admitted to the hospital for a cardiac workup for NSTEMI. Review of Systems Constitutional: Denies body ache(s), Denies chills, Reports daytime sleepiness, Denies difficulty sleeping, Reports frequent falls, Reports lethargy and Reports malaise Eyes: Denies exophthalmos and Denies change in vision Denies Normal hearing present and Denies bleeding gums Cardiovascular: Denies chest pain, Denies chest pain with activity and Denies diaphoresis Respiratory: Denies no additional respiratory complaints, Denies change in phlegm color and Denies chest congestion Gastrointestinal: Denies melena and Denies bloating Genitourinary: Denies hematospermia, Denies change in libido and Denies hematuria Musculoskeletal: Denies abnormal gait and Denies myalgias Skin/Breast: Denies bleeding lesions and Denies breast swelling Denies Normal hearing present, Denies Neuro-related abnormal movements, Denies abnormal gait, Denies behavioral changes, Denies confusion and Reports frequent falls Psychiatric: Denies behavioral changes, Denies change in libido and Denies confusion Endocrine: Denies change in libido and Denies cold intolerance Constitutional Constitutional: Denies body ache(s), Denies chills, Reports daytime sleepiness, Denies difficulty sleeping, Reports frequent falls, Reports lethargy and Reports malaise Eyes Eyes: Denies exophthalmos and Denies change in vision ENT Denies Normal hearing present and Denies bleeding gums Cardiovascular Cardiovascular: Denies chest pain, Denies chest pain with activity and Denies diaphoresis Respiratory Respiratory: Denies no additional respiratory complaints, Denies change in phlegm color and Denies chest congestion Gastrointestinal Gastrointestinal: Denies melena and Denies bloating Genitourinary Genitourinary: Denies hematospermia, Denies change in libido and Denies hematuria Musculoskeletal Musculoskeletal: Denies abnormal gait and Denies myalgias Integumentary/Breasts Skin/Breast: Denies bleeding lesions and Denies breast swelling Neurologic Denies Normal hearing present, Denies Neuro-related abnormal movements, Denies abnormal gait, Denies behavioral changes, Denies confusion and Reports frequent falls Psychiatric Psychiatric: Denies behavioral changes, Denies change in libido and Denies confusion Endocrine Endocrine: Denies change in libido and Denies cold intolerance [facility] Past Medical History Medical History (Updated 05/09/25 @ 17:10 by Mike South MD) Anemia in chronic kidney disease (CKD) ESRD (end stage renal disease) on dialysis Open wound Opioid use disorder, severe, dependence Bacteremia Volume overload Paroxysmal atrial flutter Cardiomyopathy Pericardial effusion Atrial flutter Need for acute hemodialysis Leukocytosis Anemia Anemia Transfusion history Atrial flutter, paroxysmal COPD (chronic obstructive pulmonary disease) Constipation Callus of foot Seizure Polysubstance abuse CKD (chronic kidney disease) stage 3, GFR 30-59 ml/min Foot osteomyelitis, left Amputation of toe of right foot Diabetic ulcer of right foot Hyperglycemia due to type 2 diabetes mellitus Renal failure Sleep apnea Diabetes HTN (hypertension) Surgical History Surgical History Hx of right BKA History of surgical procedure (~04/24/23) Social History Social History Household Members: Other Household Members Other:: mother Housing: Apartment Do you presently have visiting nurse or other home services: No Unable to assess alcohol history related to: Unable to respond Alcohol intake: former Comment: bilateral wrist restraints/propofol drip for airway safety Patient Tobacco Use Status: Current everyday Tobacco user Tobacco use type: Cigarette Cigarette Packs Per Day: 0.5 Cigarettes Per Day: 6 Years Smoked: 33 e-Cigarette/Vaping Use: Currently Using Second Hand Smoke Exposure: Yes Substance Use Type: Marijuana service: No Meds Allergies Allergy/AdvReac Type Severity Reaction Status Date / Time No Known Allergies (No Known Allergy Verified 05/09/25 05:43 Allergies*) Active Medications: Current Medications Acetaminophen (Acetaminophen 325 Mg Tablet) 650 mg PO Q6H PRN PRN Reason: Pain, Mild 1-3,fever,headache Buprenorphine/Naloxone (Buprenorphine/Naloxone 8/2 Mg Film) 1 film SUBLINGUAL TID [facility] Last Admin: 05/09/25 15:29 Dose: 1 film Calcium Carbonate (Calcium Carbonate 750 Mg Tab.Chew) 750 mg PO Q4H PRN PRN Reason: Heartburn Heparin Sodium (Porcine) (Heparin Sodium,Porcine 5,000 Unit/Ml Vial) 5,000 unit SUBCUT Q8H [facility] Last Admin: 05/09/25 11:49 Dose: 5,000 unit Insulin Glargine (Insulin Glargine,Hum.Rec.Anlog 100 Unit/Ml 10 Ml Vial) 10 unit SUBCUT BEDTIME [facility] Insulin Human Lispro (Insulin Lispro 100 Unit/Ml 3 Ml Vial) 0 unit SUBCUT QIDACHS [facility]; Protocol Last Admin: 05/09/25 16:55 Dose: Not Given Magnesium Hydroxide (Milk Of Magnesia 30 Ml Oral.Susp) 30 ml PO DAILY PRN PRN Reason: Constipation Melatonin (Melatonin 3 Mg Tablet) 6 mg PO BEDTIME PRN PRN Reason: Insomnia Multivitamins/Vitamin C (Multivitamin Tablet) 1 tab PO DAILY [facility] Oxycodone HCl (Oxycodone Hcl Immed Release 5 Mg Tablet) 10 mg PO Q8H PRN PRN Reason: pain (scale score 7-10) Sodium Chloride (0.9 % Sodium Chloride Flush 3 Ml Syringe) 3 ml IVFLUSH QSHIFT [facility] Last Admin: 05/09/25 16:43 Dose: 3 ml Home Medications ?Medication ?Instructions ?Recorded ?Confirmed ?Last Taken ?Type insulin lispro 100 unit/mL See Protocol subcut TIDAC 1 11/28/23 05/09/25 11/04/24 History subcutaneous pen (Humalog KwikPen (U-100) Insulin) melatonin 5 mg tablet 5 mg PO BEDTIME PRN insomnia 09/28/24 05/09/25 11/04/24 History insulin glargine 100 unit/mL (3 15 unit subcut BEDTIME 12/17/24 05/09/25 Unknown History mL) subcutaneous pen buprenorphine 8 mg-naloxone 2 mg 1 film sublingual TID 05/09/25 05/09/25 05/08/25 History sublingual film (Suboxone) Physical Exam Vital Signs: Last Vital Signs Temp 96.8 F 05/09/25 16:00 Pulse 105 H 05/09/25 16:00 Resp 20 05/09/25 16:00 BP 143/65 H 05/09/25 11:47 Pulse Ox 100 05/09/25 16:00 O2 Del Method Room Air 05/09/25 16:00 BMI result Body Mass Index 26.6 General: Middle-aged male in no acute distress, ill appearing and tired appearing Nutritional Appearance: well nourished and overweight Eyes: appearance normal, both eyes and all related structures; Alignment and Position: alignment normal and position normal Neck: No lymphadenopathy, no thyromegaly Resp: bilateral air entry equal, occasional added sounds present Cardio: Regular rate, regular rhythm; Heart sounds: S1 normal heart sound present and S2 normal heart sound present GI: soft, nontender, no guarding, no hepatosplenomegaly : bladder normal to inspection, bladder normal to palpation, no renal angle tenderness Skin: no rashes or lesions noted and elasticity normal Neuro: Some abnormal movements of all extremities, no focal deficits, BKA present Const General: No confusion Orientation/consciousness: No confusion Neuro General: No confusion Cranial nerves: No Normal hearing present Results Lab Results 05/09/25 05:54 05/09/25 05:54 Lab results: Chemistry 05/09/25 05:54 Sodium 135 Potassium 5.2 H D Carbon Dioxide 22 BUN 47 H Creatinine 7.56 H* Calcium 8.3 L Hematology 05/09/25 05:54 WBC 12.8 H Hgb 11.9 L D Plt Count 253 Assessment and Plan (1) ESRD on dialysis: Status: Acute (2) Hyperkalemia: Status: Acute (3) Hypocalcemia: Status: Acute (4) Hyperphosphatemia: Status: Acute Plan 1. ESRD on HD requiring HD HD schedule: [facility], last session: Friday Access: Right subclavian PermCath Volume Status: At dry weight HD today with goals: duration 3.5 hours UF: 3 L, Targeted to dry weight, K bath: 4K bath 2. Electrolyte Management: Hyperkalemia: K5.2, should correct with dialysis Hypocalcemia: Calcium 8.3 Restart home calcitriol 0.5 mcg Hyperphosphatemia: Restart sevelamer and calcium oxalate with meals dietary phosphate restriction less than 1g/day 3. Anemia of ESRD: Hb 11.7 4. Hypertension: Mostly under control Hold antihypertensives prior to HD continue home metoprolol Thanks for your consult, we will continue to follow up this patient along with you. Procedures Date of Service Date of Service: 05/09/25
[2025-05-09 21:56] LABS: Glucose, Whole Blood 111 mg/dL (60-115)
[2025-05-09] MEDS: Insulin Glargine,Hum.rec.anlog 100 UNIT/ML 10 ML VIAL 10 UNIT SUBCUT (22:03)
[2025-05-09] MEDS: diazePAM 10 MG/2 ML CARTRIDGE 5 MG IVPUSH (22:03)
[2025-05-10] VITALS: PULSE 102
[2025-05-10] MEDS: diazePAM 10 MG/2 ML CARTRIDGE 2.5 MG IVPUSH (02:37)
[2025-05-10 03:35] VITALS: BP 188/96; PULSE 98; RESP 16; TEMP 36.7; O2SAT 97
--- NOTE | 2025-05-10 07:00 | CA_ITS ---
Transthoracic Echocardiogram Patient (Last, First, Middle): Deandre Luong M Gender: Male Date of : 1980 Age: 44 Procedure Date: 05/10/2025 Procedure Type: Transthoracic Echocardiogram [place] [facility] [place]: 175.26 cm Weight: 81.65 kg BSA: 1.98 m2 Heart Rate: 93 bpm BP: 139 / 66 mmHg Long Term Acute Care Registered Nurse: SB/RC Referring MD: Nik Blum MD Symptoms: syncope, elevated trop-I Study Quality: Adequate ECG Rhythm: Sinus Conclusions: - Normal left ventricular size and systolic function. There is moderately increased left ventricular wall thickness. The visually estimated ejection fraction is between 55-60%. - Normal right ventricular cavity size and systolic function. - There is mild dilatation of the sinuses of Valsalva measuring 4.10 cm and mild dilatation of the ascending aorta measuring 3.80 cm. - There is no evidence of pericardial effusion. Findings Procedure Information The quality of the study was technically difficult. The study quality is limited by lung artifact. Left Ventricle Normal left ventricular size and systolic function. There is moderately increased left ventricular wall thickness. The visually estimated ejection fraction is between 55-60%. There is no evidence of regional wall motion abnormalities. Diastolic function is indeterminate on the basis of available data. Right Ventricle Normal right ventricular cavity size and systolic function. Atria The left atrium is normal in size. The right atrium is normal in size. Aortic Valve There is a normal trileaflet aortic valve. There is mild calcification of the aortic valve. There is no aortic valve stenosis. There is no aortic valve regurgitation. Mitral Valve The mitral valve appears normal. There is no mitral valve regurgitation. There is no mitral valve stenosis. Pulmonic Valve The pulmonic valve is likely normal. Tricuspid Valve Normal tricuspid valve structure. There is no tricuspid valve regurgitation. Tricuspid regurgitation envelope is inadequate for calculation of right ventricular systolic pressure. Normal right atrial pressure. Great Vessels There is mild dilatation of the sinuses of Valsalva measuring 4.10 cm and mild dilatation of the ascending aorta measuring 3.80 cm. The visualized portions of the pulmonary artery and branches are normal. Venous The inferior vena cava is normal in size and collapses greater than 50% with inspiration. Pericardium/Pleural There is no evidence of pericardial effusion. Prior Study Comparison No significant change compared to prior study dated: 10/05/2024. Measurements 2D Linear Measurements IVSd: 1.39 0.6-0.9/0.6-1.0 cm LVIDd: 4.77 3.9-5.3/4.2-5.9 cm LVIDd Index: 2.41 2.4-3.2/2.2-3.1 cm/m2 LVIDs: 3.31 2.0-3.6 cm LVPWd: 1.43 0.7-1.1 cm LA Diam: 3.00 2.7-3.8/3.0-4.0 cm LAIDs Index: 1.52 1.5-2.3 cm/m2 LV Mass: 341.86 67-162/88-224 g LV Mass Index: 172.66 43-95/49-115 g/m2 LVOT Diam: 2.40 3.0+(-)1.3 cm 2D Systolic Function EF 4C: 43.80 >55% EF 2C: 62.60 >55% EF BiP: 54.90 >55% Mitral Valve E'Medial: 5.44 Aortic Valve AoV Pk Sanchez: 0.88 AoV Pk Grad: 3.00 IGLESIA: 4.41 LVOT LVOT Pk Sanchez: 0.88 LVOT Mn Asnchez: 0.55 LVOT VTI: 0.15 LVOT Pk Grad: 3.00 LVOT Mn Grad: 1.00 LVOT Diam: 2.40 LVOT Area: 4.52 Diastolic Function E'Medial: 5.44 Right Ventricle TVS' Sanchez: 12.50 Tricuspid Valve RA Press: 3.00 Great Vessels Aorta Sinus of Valsalva: 4.10 2.0-3.5 cm Ao Asc: 3.80 2.1-3.4 cm Pulmonary Valve PV Pk Sanchez: 0.99 Peak PV Grad: 4.00 Updated in Other Vendor System with Status of Final Fabio Whitten MD electronically signed on 05/10/2025 3:29:02 PM with status of Final
[2025-05-10 07:09] VITALS: BP 176/90; PULSE 98; RESP 20; TEMP 36.6; O2SAT 98
[2025-05-10 07:18] LABS: Glucose, Whole Blood 97 mg/dL (60-115)
[2025-05-10] MEDS: Sevelamer Carbonate Tablet 800 MG TABLET PO ×3 (08:12→16:40)
[2025-05-10] MEDS: 0.9 % Sodium Chloride Flush 3 ML SYRINGE IVFLUSH ×2 (08:13→15:50)
--- NOTE | 2025-05-10 09:06 | MHC.CM.PN ---
CM met with Patient at bedside and addressed VARGAS with him, providing Patient with the original and a copy has been placed on the chart. Patient lives in an apartment with his Mother and he uses both a cane and a w/c to assist with mobility. Patient attends HD Q M[facility]W/F @ [facility] and receives his Suboxone from [facility]. Home/resume said services is the Patient's goal and CM has initiated and will follow for dc planning. PCP is from [facility] and Patient declined completing a HCP. BLS transport is needed at time of dc.
[2025-05-10 09:20] LABS: Anion Gap 17 (12-20); Blood Urea Nitrogen 29 mg/dL (9-16); Calcium 8.7 mg/dL (8.4-10.2); Carbon Dioxide 26 mmol/L (22-29); Chloride 99 mmol/L (96-108); Creatinine Clr Calc Pharmacy 16.9; Estimated Glomerular Filt Rate 11; Potassium 4.1 mmol/L (3.3-5.1); Sodium 138 mmol/L (135-145)
--- NOTE | 2025-05-10 10:30 | P.PNNP_ITS ---
Subjective Subjective Date of Service: 05/10/25 Principal diagnosis: ESRD Interval history: following for management of ESRD on HD, here in hospital after syncopal episode patient denies new concerns/complaints, would like to go home hypertensive this a.m. Physical Exam 2 Vital Signs: Vital Signs: Last Vital Signs Temp 99.2 F 05/10/25 11:10 Pulse 87 05/10/25 11:10 Resp 20 05/10/25 11:10 BP 158/88 H 05/10/25 11:10 Pulse Ox 98 05/10/25 11:10 O2 Del Method Room Air 05/10/25 11:10 BMI result Body Mass Index 26.6 Const: General: alert and awake Resp: Effort & Inspection: normal respiratory effort and able to speak in complete sentences Cardio: Rate: regular rate Rhythm: regular rhythm GI: Palpation (GI): Soft to palpation and nontender Skin: Rashes: no rashes Extrem: General: No edema Objective Data Labs 05/09/25 05:54 05/10/25 08:46 Labs: Laboratory Results - last 24 hr 05/09/25 05/09/25 05/10/25 16:45 21:50 07:00 Sodium Potassium Chloride Carbon Dioxide Anion Gap BUN Creatinine Estim Creat Clear Calc Estimated GFR POC Glucose 108 111 97 Random Glucose Calcium Phosphorus 05/10/25 05/10/25 08:46 11:03 Sodium 138 Potassium 4.1 D Chloride 99 Carbon Dioxide 26 Anion Gap 17 BUN 29 H Creatinine 5.45 H* Estim Creat Clear Calc 16.9 Estimated GFR 11 POC Glucose 228 H Random Glucose 104 Calcium 8.7 Phosphorus 7.1 H Microbiology Microbiology Results: Microbiology 05/09/25 06:19 Blood - Venous Blood Culture - Preliminary No growth after 24 hours. 05/09/25 05:54 Blood - Venous Blood Culture - Preliminary No growth after 24 hours. Procedures Date of Service Date of Service: 05/10/25 Assessment & Plan Assessment and plan (1) ESRD (end stage renal disease) on dialysis: Status: Inactive Plan Pt with ESRD on HD MWF permcath in place (pt has outpatient vascular appt for fistula) H&H 11.9 & 36, no indication for procrit at this time Calcium 8.7, calcitriol 0.5mg daily Phosphorous 8.7- resume outpatient phosphorous binder with meals no metabolic acidosis patient appears euvolemic today blood pressures elevated- may resume home metoprolol dose. Withdrawal from opioids may be contributing to hypertension as well. Discussed with Dr South Time Spent With Patient Time: Total time managing care of this patient today ____ minutes. Progress Note: Quality Stroke Does the patient have a stroke diagnosis?: No
[2025-05-10 11:09] LABS: Glucose, Whole Blood 228 mg/dL (60-115)
[2025-05-10 11:10] VITALS: BP 158/88; PULSE 87; RESP 20; TEMP 37.3; O2SAT 98
--- NOTE | 2025-05-10 12:08 | PM.DS ---
DS: Providers Provider Date of Service: 05/10/25 Date of admission: 05/09/25 09:15 Date of discharge: 05/10/25 Primary care physician: Kyle Sargent MD Consults: 05/09/25 08:55 Consult to Nephrology Stat Consulting Provider: [facility] Reason for consultation: need dyalisi 05/09/25 09:15 Consult to Nephrology Routine Consulting Provider: [facility] Reason for consultation: ESRD, due to HD today 05/09/25 09:16 Consult to Cardiology Routine Consulting Provider: [facility] Reason for consultation: syncope, elevated trop-I 05/09/25 09:19 Consult to Wound Care Routine Reason for consultation: R BKA stump wound 05/09/25 15:15 Addiction Medicine Provider Routine Consulting Provider: Addiction Covering Reason for consultation: on suboxone, having withdrawals DS: Diagnosis Discharge Diagnosis (1) ESRD on dialysis: Status: Acute (2) Hyperkalemia: Status: Acute (3) Hypocalcemia: Status: Acute (4) Hyperphosphatemia: Status: Acute DS: Summary Hospital Course Hospital Course: History and physical as per admitting provider. The patient is a 44-year-old male with a past medical history significant for ESRD on hemodialysis Friday, right BKA, left TMA, chronic nonhealing wounds, diabetes, hypotension, opiate use disorder on Suboxone and multiple others who presents from home after what appears to be the history is from the mother who is bedside. Apparently this morning the patient ambulated to the bathroom, getting ready for his morning dialysis. Subsequent to this, the mother found the patient sitting on a chair, not acting right.? Apparently at this time he was unable to follow commands. Upon arrival of EMS the patient was noted to be pale and diaphoretic with oxygen level of 67% on room air and heart rate in the 130s. By the time the patient arrived to the emergency room the patient was alert and oriented x3 with normal vital signs. He denied any chest pain or complaints in general. He reports feeling at his baseline self currently as well as the evening prior to hospitalization. He reports his last dialysis session was on Friday. In the emergency room the patient was evaluated for his syncope and workup revealed an elevated troponin of over 3000 which is down trending now. EKG without any ischemic changes. Given these findings, the patient will be admitted for further workup and evaluation. Syncope. Likely secondary to drug use, did have elevated troponin but that is also likely secondary to drug use acutely. Heart rate was noted to be elevated during event. No arrhythmias noted on telemetry monitoring. Seen and evaluated by Cardiology with no further workup recommended at this time, baby aspirin daily. Normal echo. ESRD on HD MWF, received dialysis 05/09/2025. Continue regular dialysis schedule outpatient. PAF, appears to be in sinus current. Not on anticoagulation at this time. DM 2, hold oral; POC + Sliding scale during hospitalization, continue home medications on discharge R BKA stump wounds HLD statin Time Attestation Discharge Coordination Time (in mins): 45 Quality: Safe Use of Opioids Does Pt have an Active Cancer Diagnosis on the Problem List?: No Quality: Stroke Does the patient have a stroke diagnosis?: No Physical Exam Vital Signs: Vital Signs: Last Vital Signs Temp 99.2 F 05/10/25 11:10 Pulse 87 05/10/25 11:10 Resp 20 05/10/25 11:10 BP 158/88 H 05/10/25 11:10 Pulse Ox 98 05/10/25 11:10 O2 Del Method Room Air 05/10/25 11:10 BMI result Body Mass Index 26.6 Appearing in no acute distress head is normocephalic atraumatic eyes pupils are PERRLA sclera is anicteric mouth throat mucous membranes are intact and moist neck is supple no lymphadenopathy, no JVD noted lung sounds are clear to auscultation heart regular rate rhythm, clear S1, S2 positive bowel sounds, abdomen is soft, nontender neuro patient is alert x3, no focal deficits DS: Data Data Completed and Pending Completed studies during hospitalization [Text1]: Procedures Assistance with Respiratory Ventilation, Less than 24 Consecutive Hours, Continuous Positive Airway Pressure (11/05/24) Detachment at Right 2nd Toe, Complete, Open Approach (04/18/23) Drainage of Left Pleural Cavity with Drainage Device, Percutaneous Approach (10/04/24) Drainage of Left Pleural Cavity, Percutaneous Approach (09/21/24) Excision of Inguinal Skin, External Approach (12/17/24) Excision of Left Foot Skin, External Approach (11/05/24) Excision of Male Perineum, Open Approach (11/05/24) Excision of Right Foot Subcutaneous Tissue and Fascia, Open Approach (04/18/23) Excision of Right Upper Leg Skin, External Approach (12/17/24) Excision of Right Upper Leg Subcutaneous Tissue and Fascia, Open Approach (11/05/24) Fluoroscopy of Superior Vena Cava using Low Osmolar Contrast, Guidance (04/18/23) Insertion of Endotracheal Airway into Trachea, Via Natural or Artificial Opening (09/21/24) Insertion of Infusion Device into Right Atrium, Percutaneous Approach (10/04/24) Insertion of Infusion Device into Superior Vena Cava, Percutaneous Approach (10/04/24) Insertion of Tunneled Vascular Access Device into Chest Subcutaneous Tissue and Fascia, Percutaneous Approach (10/04/24) Introduction of Vasopressor into Peripheral Vein, Percutaneous Approach (11/05/24) Performance of Urinary Filtration, Intermittent, Less than 6 Hours Per Day (12/17/24) Transfusion of Nonautologous Red Blood Cells into Peripheral Vein, Percutaneous Approach (11/05/24) Ultrasonography of Superior Vena Cava, Guidance (10/04/24) Labs on day of discharge: Laboratory Results - last 24 hr 05/09/25 05/09/25 05/10/25 16:45 21:50 07:00 Sodium Potassium Chloride Carbon Dioxide Anion Gap BUN Creatinine Estim Creat Clear Calc Estimated GFR POC Glucose 108 111 97 Random Glucose Calcium Phosphorus 05/10/25 05/10/25 08:46 11:03 Sodium 138 Potassium 4.1 D Chloride 99 Carbon Dioxide 26 Anion Gap 17 BUN 29 H Creatinine 5.45 H* Estim Creat Clear Calc 16.9 Estimated GFR 11 POC Glucose 228 H Random Glucose 104 Calcium 8.7 Phosphorus 7.1 H Preliminary micro results at discharge 05/09/25 06:19 Blood Culture - Preliminary Blood - Venous No growth after 24 hours. 05/09/25 05:54 Blood Culture - Preliminary Blood - Venous No growth after 24 hours. Discharge Plan Discharge Anticipated Discharge Date/Time: 05/10/25 11:58 Patient Disposition: Home, Self-Care Discharge Diagnosis: Syncope ESRD on dialysis Elevated troponin Referrals: Kyle Sargent MD [Primary Care Provider, Medical] - 1 Week Discharge Medications: New aspirin 81 mg tablet 81 mg PO DAILY Qty: 30 0RF Continued buprenorphine-naloxone [Suboxone] 8-2 mg film 1 film sublingual TID multivitamin Tablet 1 tab PO DAILY Qty: 30 0RF omeprazole 20 mg capsule,delayed release(DR/EC) 20 mg PO DAILY@0630 Qty: 30 0RF (DME) pen needle, diabetic 32 gauge x 1/4 needle Qty: 100 0RF Rx Instructions: Use four times a day or as directed. (DME) Dakins solution 1/4 strength 500ml See Rx Instructions .Route .MEDSUPPLY Qty: 1 0RF Rx Instructions: As directed insulin lispro [Humalog KwikPen Insulin] 100 unit/mL insulin pen See Protocol subcut TIDAC Protocol: Insulin Correction Scale Less than or equal to 110 ---- Give (units): 0 111 to 150 Give (units): 0 151 to 200 Give (units): 3 201 to 250 Give (units): 5 251 to 300 Give (units): 8 301 to 350 Give (units): 10 Greater than 350 Give (units): 15 Call MD if Blood Glucose > : 350 melatonin 5 mg tablet 5 mg PO BEDTIME PRN (Reason: insomnia) (DME) FreeStyle Lite Strips Strip Qty: 100 0RF Rx Instructions: Test four times a day or as directed. (DME) blood-glucose meter Kit Qty: 1 0RF Rx Instructions: As Directed (DME) lancets [FreeStyle Lancets] 28 gauge misc Qty: 100 0RF Rx Instructions: Test four times a day or as directed. polyethylene glycol 3350 17 gram Powder In Packet 17 g PO DAILY PRN (Reason: Constipation) Qty: 120 0RF insulin glargine 100 unit/mL (3 mL) insulin pen 15 unit subcut BEDTIME oxycodone 10 mg tablet 10 mg PO Q8H PRN (Reason: pain (scale score 7-10)) Qty: 12 0RF Rx Instructions: Partial Fill upon patient request. Discharge Orders: Discharge Order (Routine); Ordered 05/10/25 Ordered By: Vesna Bennett Diet: Advance to usual diet Activity on Discharge: As tolerated Stand Alone Forms: Patient Portal Discharge page Print Language: Amharic Activity Restrictions/Additional Instructions: Topical Wound Care Recommendations: Buttock and Sacrum - Off Load Pressure with Q2 hr turns and use of pillows - Cleanse with PH balance spray or wipes, pat dry. ?Apply thin layer of barrier cream to affected area.? Apply twice daily and Reapply thin layer PRN after each episode of incontinence. Left Heel - Elevate heels off of bed surface with pillows.? Float heels off of pillows.? Apply skin prep allow to dry.? Right BKA site - Cleanse with normal saline, pat dry. ?Apply skin prep to area around wound bed, cover wound bed with wound gel, gauze pad, gauze wrap and tape. Change every other day. ?Protect from Trauma. Care Plan Goals: Avoid street drugs Health Concerns: Syncope ESRD on dialysis Elevated troponin Plan of Treatment: Follow up with primary care provider as needed Take all medications as prescribed Assessment: See discharge summary
--- NOTE | 2025-05-10 12:15 | MHC.CM.PN ---
Patient has been medically cleared for dc to home today, self care.
--- NOTE | 2025-05-10 12:27 | HO.WOUND ---
Wound Consult: Initial 44yr old?male admitted to [facility] on 05/09/25- See progress notes and H&P for detailed history.? Wound consult placed for Right residual leg BKA site wound.? Patient agreeable to assessment and photo documentation.? Patient is well knonw to this mortgage loan underwriter from prior admissions. His prior wounds have healed. The Right BKa site is now open unclear etiology he is not able to recall. The wond bed is desiccated and cracking will benefit from moisture - recommend wound gel. Right residual Leg - BKA site Etiology: Diabetic wound ? Wound Bed: dry desiccated wound ebd - red dry tissue with cracking noted Drainage / Odor: scant sanginous drianage noted on bed linen - no dressing in place - no odor noted Edges: ?irregular Corazon wound: Hyperpigmentaiton noted - ? No Induration, Fluctuance or Warmth noted Pain: denies Goals of Treatment: ? donate moisture with wound gel Healed pink intact epidermal tissue. - No topical recommendations needed. Healed intact epidermal tissue with scar tissue noted - Right Thigh - No topical recommendations needed. Left heel - Dried flaking epidermal layer noted. No topical interventions needed at this time - continue to off load pressure. Sacrum and Coccyx - Healed - MASD noted- recommend barrier cream to protect from friction and moisture. Recommendations: 1. Turn and Reposition every 2 hours and as needed for patient comfort.? Use pillows or wedges to support off loading positions. 2. Off Load all bony prominences with use of pillows and heel boots if needed.? Apply Preventative foams where needed. ? 3. Monitor for incontinence and moisture control, use barrier creams when needed for prevention and treatment. 4. Provide adequate and supplemental nutrition.? 5. Order low air loss mattress. 6. When applicable maintain blood glucose levels per Providers order. Buttock and Sacrum - Off Load Pressure with Q2 hr turns and use of pillows - Cleanse with PH balance spray or wipes, pat dry. ?Apply thin layer of barrier cream to affected area.? Apply twice daily and Reapply thin layer PRN after each episode of incontinence. Left Heel - Elevate heels off of bed surface with pillows.? Float heels off of pillows.? Apply skin prep allow to dry.? Right BKA site - Cleanse with normal saline, pat dry. ?Apply skin prep to area around wound bed, cover wound bed with wound gel, gauze pad, gauze wrap and tape. ?Change every other day. ?Protect from Trauma. Re-consult wound care Nurse for wound deterioration or wound changes.
--- NOTE | 2025-05-10 13:08 | HO.ADDICT_ITS ---
History of Present Illness Date of Service: 05/10/2025 Chief Complaint: Syncope, elevated trop Reason for Consult: CRYSTAL Sources of Information: patient interviewed and chart reviewed HPI Narrative: Patient is a 44 year old male with medical history that includes ESRD with HD, DM and OUD. Presented to the ED via ambulance with AMS at home, low 02 sat and increased HR. In ED he was alert and oriented, troponins were quite elevated, and so he was medically admitted. Initially reporting withdrawal sx, so consult requested. Chart reviewed and patient seen in room 452. He is awake, alert, pleasant and engaged in interview. Discussed current substance use--he is a bit guarded with this, and states it's just a couple bags here and there Reports using fentanyl and cocaine via smoking. Appears to minimize use as a way to move on from topic. Reports he has been taking suboxone as prescribed --reporting some anxiety in the evenings--questioning if he needs an increase in dose. Current dose is 8mg TID. Advised patient that UDS was negative for buprenorphine. He insists he has been taking it. Regardless, this underwriter mortgage loan encouraged patient to continue taking buprenorphine even if he is using substances as this will decrease his risk of overdose and sometimes stopping and starting buprenorphine can be challenging. Patient verbalized understanding. He denies any withdrawal sx and appears overall comfortable. Review of Systems Constitutional: Reports as per HPI and Reports no additional constitutional complaints Diagnostics Vital Signs (24Hr): Vital Signs - 24 hr 05/09/25 16:00 05/09/25 19:42 05/09/25 21:12 Temperature 96.8 F 98.0 F Pulse Rate 105 H 108 H Respiratory Rate 20 20 Blood Pressure 188/92 H Pulse Oximetry 100 97 Oxygen Delivery Method Room Air Room Air 05/09/25 23:17 05/10/25 03:35 05/10/25 07:09 Temperature 97.5 F 98.1 F 97.9 F Pulse Rate 104 H 98 98 Respiratory Rate 18 16 20 Blood Pressure 181/95 H 188/96 H 176/90 H Pulse Oximetry 97 97 98 Oxygen Delivery Method Room Air Room Air Room Air 05/10/25 11:10 Temperature 99.2 F Pulse Rate 87 Respiratory Rate 20 Blood Pressure 158/88 H Pulse Oximetry 98 Oxygen Delivery Method Room Air BMI result Body Mass Index 26.6 Labs 05/09/25 05:54 05/10/25 08:46 Labs: Laboratory Results - last 48 hr 05/09/25 05/09/25 05/09/25 05:54 06:03 07:10 WBC 12.8 H RBC 4.08 L Hgb 11.9 L D Hct 36.1 L MCV 88.5 MCH 29.2 MCHC 33.0 RDW 15.4 Plt Count 253 MPV 10.7 Immature Gran % (Auto) 0.4 Neut % (Auto) 82.4 H Lymph % (Auto) 9.3 L Blanco % (Auto) 5.6 Eos % (Auto) 1.9 Baso % (Auto) 0.4 Lymph # (Auto) 1.2 Blanco # (Auto) 0.7 Eos # (Auto) 0.2 Baso # (Auto) 0.1 Abs Immat Gran (auto) 0.05 H Absolute Neuts (auto) 10.6 H Absolute Nucleated RBC 0.000 Nucleated RBC % (auto) 0.0 VBG pH 7.28 L VBG pCO2 58 VBG pO2 42 VBG HCO3 28 H VBG O2 Saturation 57.0 VBG Base Excess 0.4 Sodium 135 Potassium 5.2 H D Chloride 95 L Carbon Dioxide 22 Anion Gap 23 H BUN 47 H Creatinine 7.56 H* Estim Creat Clear Calc 12.2 Estimated GFR 8 POC Glucose 108 Random Glucose 118 H Lactic Acid 1.0 Calcium 8.3 L Phosphorus Total Bilirubin 0.4 AST 38 H ALT 9 Alkaline Phosphatase 100 Troponin I High Sens 3325.1 H* D Total Protein 8.4 H Albumin 3.6 Urine Opiates Screen Ur Buprenorphine Scrn Ur Oxycodone Screen Urine Methadone Screen Urine Fentanyl Screen Ur Barbiturates Screen Ur Phencyclidine Scrn Ur Amphetamines Screen U Benzodiazepines Scrn Urine Cocaine Screen U Marijuana (THC) Screen Ethyl Alcohol < 10 Influenza Type A (PCR) NEGATIVE Influenza Type B (PCR) NEGATIVE RSV RNA Qual (PCR) NEGATIVE SARS-CoV-2 RNA (RT-PCR) NEGATIVE 05/09/25 05/09/25 05/09/25 07:36 11:44 16:45 WBC RBC Hgb Hct MCV MCH MCHC RDW Plt Count MPV Immature Gran % (Auto) Neut % (Auto) Lymph % (Auto) Blanco % (Auto) Eos % (Auto) Baso % (Auto) Lymph # (Auto) Blanco # (Auto) Eos # (Auto) Baso # (Auto) Abs Immat Gran (auto) Absolute Neuts (auto) Absolute Nucleated RBC Nucleated RBC % (auto) VBG pH VBG pCO2 VBG pO2 VBG HCO3 VBG O2 Saturation VBG Base Excess Sodium Potassium Chloride Carbon Dioxide Anion Gap BUN Creatinine Estim Creat Clear Calc Estimated GFR POC Glucose 163 H 108 Random Glucose Lactic Acid Calcium Phosphorus Total Bilirubin AST ALT Alkaline Phosphatase Troponin I High Sens 2867.7 H* Total Protein Albumin Urine Opiates Screen POSITIVE H Ur Buprenorphine Scrn Not Detected Ur Oxycodone Screen Not Detected Urine Methadone Screen Not Detected Urine Fentanyl Screen POSITIVE H Ur Barbiturates Screen Not Detected Ur Phencyclidine Scrn Not Detected Ur Amphetamines Screen Not Detected U Benzodiazepines Scrn Not Detected Urine Cocaine Screen POSITIVE H U Marijuana (THC) Screen Not Detected Ethyl Alcohol Influenza Type A (PCR) Influenza Type B (PCR) RSV RNA Qual (PCR) SARS-CoV-2 RNA (RT-PCR) 05/09/25 05/10/25 05/10/25 21:50 07:00 08:46 WBC RBC Hgb Hct MCV MCH MCHC RDW Plt Count MPV Immature Gran % (Auto) Neut % (Auto) Lymph % (Auto) Blanco % (Auto) Eos % (Auto) Baso % (Auto) Lymph # (Auto) Blanco # (Auto) Eos # (Auto) Baso # (Auto) Abs Immat Gran (auto) Absolute Neuts (auto) Absolute Nucleated RBC Nucleated RBC % (auto) VBG pH VBG pCO2 VBG pO2 VBG HCO3 VBG O2 Saturation VBG Base Excess Sodium 138 Potassium 4.1 D Chloride 99 Carbon Dioxide 26 Anion Gap 17 BUN 29 H Creatinine 5.45 H* Estim Creat Clear Calc 16.9 Estimated GFR 11 POC Glucose 111 97 Random Glucose 104 Lactic Acid Calcium 8.7 Phosphorus 7.1 H Total Bilirubin AST ALT Alkaline Phosphatase Troponin I High Sens Total Protein Albumin Urine Opiates Screen Ur Buprenorphine Scrn Ur Oxycodone Screen Urine Methadone Screen Urine Fentanyl Screen Ur Barbiturates Screen Ur Phencyclidine Scrn Ur Amphetamines Screen U Benzodiazepines Scrn Urine Cocaine Screen U Marijuana (THC) Screen Ethyl Alcohol Influenza Type A (PCR) Influenza Type B (PCR) RSV RNA Qual (PCR) SARS-CoV-2 RNA (RT-PCR) 05/10/25 11:03 WBC RBC Hgb Hct MCV MCH MCHC RDW Plt Count MPV Immature Gran % (Auto) Neut % (Auto) Lymph % (Auto) Blanco % (Auto) Eos % (Auto) Baso % (Auto) Lymph # (Auto) Blanco # (Auto) Eos # (Auto) Baso # (Auto) Abs Immat Gran (auto) Absolute Neuts (auto) Absolute Nucleated RBC Nucleated RBC % (auto) VBG pH VBG pCO2 VBG pO2 VBG HCO3 VBG O2 Saturation VBG Base Excess Sodium Potassium Chloride Carbon Dioxide Anion Gap BUN Creatinine Estim Creat Clear Calc Estimated GFR POC Glucose 228 H Random Glucose Lactic Acid Calcium Phosphorus Total Bilirubin AST ALT Alkaline Phosphatase Troponin I High Sens Total Protein Albumin Urine Opiates Screen Ur Buprenorphine Scrn Ur Oxycodone Screen Urine Methadone Screen Urine Fentanyl Screen Ur Barbiturates Screen Ur Phencyclidine Scrn Ur Amphetamines Screen U Benzodiazepines Scrn Urine Cocaine Screen U Marijuana (THC) Screen Ethyl Alcohol Influenza Type A (PCR) Influenza Type B (PCR) RSV RNA Qual (PCR) SARS-CoV-2 RNA (RT-PCR) Imaging Radiology Impressions: ITS Impressions Chest X-Ray 05/09/25 08:40 IMPRESSION: No acute cardiopulmonary abnormality. Electronically signed by: García Loza MD 05/09/2025 08:58 AM EDT RP Mental Status Exam Mental Status Exam Patient Appearance: Appropriate Level of Consciousness: Awake, Appropriate and Alert Patient Behavior: Appropriate and Talkative Affect Description: Calm Speech Pattern: Clear Thought Process: Intact Thought Content: positive for Intact Judgement: Good Medications Medications Current Medications Acetaminophen (Acetaminophen 325 Mg Tablet) 650 mg PO Q6H PRN PRN Reason: Pain, Mild 1-3,fever,headache Buprenorphine/Naloxone (Buprenorphine/Naloxone 8/2 Mg Film) 1 film SUBLINGUAL TID LYSSA Last Admin: 05/10/25 08:13 Dose: 1 film Calcitriol (Calcitriol 0.25 Mcg Capsule) 0.5 mcg PO DAILY [facility] Last Admin: 05/10/25 08:12 Dose: 0.5 mcg Calcium Carbonate (Calcium Carbonate 750 Mg Tab.Chew) 750 mg PO Q4H PRN PRN Reason: Heartburn Clonidine HCl (Clonidine Hcl 0.1 Mg Tablet) 0.1 mg PO Q8H PRN PRN Reason: anxiety/restlessness Last Admin: 05/09/25 18:23 Dose: 0.1 mg Heparin Sodium (Porcine) (Heparin Sodium,Porcine 5,000 Unit/Ml Vial) 5,000 unit SUBCUT Q8H [facility] Last Admin: 05/10/25 12:18 Dose: 5,000 unit Insulin Glargine (Insulin Glargine,Hum.Rec.Anlog 100 Unit/Ml 10 Ml Vial) 10 unit SUBCUT BEDTIME [facility] Last Admin: 05/09/25 22:03 Dose: 10 unit Insulin Human Lispro (Insulin Lispro 100 Unit/Ml 3 Ml Vial) 0 unit SUBCUT QIDACHS [facility]; Protocol Last Admin: 05/10/25 12:18 Dose: 4 unit Magnesium Hydroxide (Milk Of Magnesia 30 Ml Oral.Susp) 30 ml PO DAILY PRN PRN Reason: Constipation Melatonin (Melatonin 3 Mg Tablet) 6 mg PO BEDTIME PRN PRN Reason: Insomnia Multivitamins/Vitamin C (Multivitamin Tablet) 1 tab PO DAILY [facility] Last Admin: 05/10/25 08:12 Dose: 1 tab Oxycodone HCl (Oxycodone Hcl Immed Release 5 Mg Tablet) 10 mg PO Q8H PRN PRN Reason: pain (scale score 7-10) Sevelamer Carbonate (Sevelamer Carbonate Tablet 800 Mg Tablet) 800 mg PO TIDWM [facility] Last Admin: 05/10/25 12:18 Dose: 800 mg Sodium Chloride (0.9 % Sodium Chloride Flush 3 Ml Syringe) 3 ml IVFLUSH QSHIFT [facility] Last Admin: 05/10/25 08:13 Dose: 3 ml Allergies Allergies Allergy/AdvReac Type Severity Reaction Status Date / Time No Known Allergies (No Known Allergy Verified 05/09/25 05:43 Allergies*) Assessment & Plan Assessment & Plan (1) Opioid use disorder, severe, dependence: Status: Acute Code(s): F11.20 - Opioid dependence, uncomplicated Assessment and Plan: * continue suboxone 8mg TID * already connected to [facility] and has an appt pending * risk reduction discussion related to ongoing use--take home narcan * no follow up indicated at this time Total time managing care of this patient today __30__ minutes. PMFSH Past Medical History Medical History (Updated 05/10/25 @ 13:10 by Catina Cantu CNP) Anemia in chronic kidney disease (CKD) ESRD (end stage renal disease) on dialysis Open wound Opioid use disorder, severe, dependence Bacteremia Volume overload Paroxysmal atrial flutter Cardiomyopathy Pericardial effusion Atrial flutter Need for acute hemodialysis Leukocytosis Anemia Anemia Transfusion history Atrial flutter, paroxysmal COPD (chronic obstructive pulmonary disease) Constipation Callus of foot Seizure Polysubstance abuse CKD (chronic kidney disease) stage 3, GFR 30-59 ml/min Foot osteomyelitis, left Amputation of toe of right foot Diabetic ulcer of right foot Hyperglycemia due to type 2 diabetes mellitus Renal failure Sleep apnea Diabetes HTN (hypertension) Surgical History Surgical History Hx of right BKA History of surgical procedure (~04/24/23) Social History Social History Household Members: Family Household Members Other:: mother Housing: Apartment Do you presently have visiting nurse or other home services: No Unable to assess alcohol history related to: Unable to respond Alcohol intake: former Comment: Sitter Patient Tobacco Use Status: Tobacco use Unknown Tobacco use type: Cigarette Cigarette Packs Per Day: 0.5 Cigarettes Per Day: 6 Years Smoked: 33 e-Cigarette/Vaping Use: Currently Using Second Hand Smoke Exposure: Yes Substance Use Type: Marijuana service: No
--- NOTE | 2025-05-10 14:49 | MHC.CM.PN ---
Patient has been medically cleared for dc to home today, self care. Patient will dc to home via [facility] today at 6 PM. RN & PA are aware.
[2025-05-10 15:33] VITALS: BP 169/88; PULSE 90; RESP 16; TEMP 36.9; O2SAT 99
[2025-05-10 16:35] LABS: Glucose, Whole Blood 173 mg/dL (60-115)
== END 2025-05-10 18:55 | disposition home or self-care (01) ==
LOC: HO.ED 08:56 → HO.EDOVER 09:22 → HO.IMC 16:27
PROVIDERS: Emergency Medicine; Internal Medicine; Nurse Practitioner Family; Admitting Provider Family Medicine; Emergency Provider Emergency Medicine; PCP Internal Medicine; Visit Provider Nurse Practitioner Acute Care
DX: R79.89 Other specified abnormal findings of blood chemistry (principal); I12.0 Hypertensive chronic kidney disease with stage 5 chronic kidney disease or end stage renal disease; E11.22 Type 2 diabetes mellitus with diabetic chronic kidney disease; N18.6 End stage renal disease; E87.5 Hyperkalemia; E83.39 Other disorders of phosphorus metabolism; E83.51 Hypocalcemia; R06.00 Dyspnea, unspecified; F19.20 Other psychoactive substance dependence, uncomplicated; E78.5 Hyperlipidemia, unspecified; I48.92 Unspecified atrial flutter; Z99.2 Dependence on renal dialysis; Z89.511 Acquired absence of right leg below knee; Z79.4 Long term (current) use of insulin; Z79.899 Other long term (current) drug therapy
CPT/HCPCS: 36415; 71045; 80048; 80053; 80307; 82803; 82947; 83605; 84100; 84484; 85025; 87040; 87637; 90999; 93005; 93306; 96372; 96374; 96376; 99222; 99285; J1644; J2359; J2550; J3360; Q9957

== ENCOUNTER → 2025-05-09 08:22 | Outpatient (BNV) | payer MEDICAID, SELFPAY | PROVIDERS: Emergency Provider Emergency Medicine; Visit Provider Radiology Diagnostic Radiology | DX: R06.02 Shortness of breath (principal) | CPT/HCPCS: 71045 ==

== ENCOUNTER 2025-05-09 09:15 | Outpatient (BNV) | payer MEDICAID, SELFPAY | END 2025-05-10 07:00 | PROVIDERS: Admitting Provider Family Medicine; Emergency Provider Emergency Medicine; PCP Internal Medicine; Visit Provider Internal Medicine Cardiovascular Disease | DX: R93.1 Abnormal findings on diagnostic imaging of heart and coronary circulation (principal) | CPT/HCPCS: 93306 ==

== ENCOUNTER → 2025-05-09 09:15 | Outpatient (BNV) | payer OTHER, SELFPAY | PROVIDERS: Admitting Provider Family Medicine; Emergency Provider Emergency Medicine; PCP Internal Medicine; Visit Provider Nurse Practitioner Psychiatric/Mental Health | DX: F11.20 Opioid dependence, uncomplicated (principal) | CPT/HCPCS: 99221 ==

== ENCOUNTER → 2025-05-09 09:15 | Outpatient (BNV) | payer MEDICAID, SELFPAY | PROVIDERS: Admitting Provider Family Medicine; Emergency Provider Emergency Medicine; Visit Provider Internal Medicine Critical Care Medicine | DX: N18.6 End stage renal disease (principal); Z99.2 Dependence on renal dialysis; E87.5 Hyperkalemia; E83.51 Hypocalcemia; E83.39 Other disorders of phosphorus metabolism; E87.4 Mixed disorder of acid-base balance | CPT/HCPCS: 90935; 99223 ==

== ENCOUNTER → 2025-05-09 09:15 | Outpatient (BNV) | payer MEDICAID, SELFPAY | PROVIDERS: Admitting Provider Family Medicine; Emergency Provider Emergency Medicine; Visit Provider Internal Medicine Cardiovascular Disease | DX: F11.20 Opioid dependence, uncomplicated (principal); R79.89 Other specified abnormal findings of blood chemistry; R41.0 Disorientation, unspecified | CPT/HCPCS: 93010; 99222 ==

== ENCOUNTER → 2025-05-09 09:15 | Outpatient (BNV) | payer MEDICAID, SELFPAY | PROVIDERS: Admitting Provider Family Medicine; Emergency Provider Emergency Medicine; PCP Internal Medicine; Visit Provider Nurse Practitioner Family | DX: N18.6 End stage renal disease (principal); Z99.2 Dependence on renal dialysis | CPT/HCPCS: 99231 ==

== ENCOUNTER → 2025-05-09 09:15 | Outpatient (BNV) | payer MEDICAID, SELFPAY | PROVIDERS: Admitting Provider Family Medicine; Emergency Provider Emergency Medicine; Visit Provider Family Medicine | DX: N18.6 End stage renal disease (principal); Z99.2 Dependence on renal dialysis; E87.5 Hyperkalemia; E83.51 Hypocalcemia; E83.39 Other disorders of phosphorus metabolism | CPT/HCPCS: 99239 ==

== ENCOUNTER → 2025-06-03 23:59 | Outpatient (BNV) | payer MEDICAID, SELFPAY | PROVIDERS: Visit Provider Internal Medicine Nephrology | DX: N18.6 End stage renal disease (principal) | CPT/HCPCS: 90960 ==

== ENCOUNTER → 2025-07-04 23:59 | Outpatient (BNV) | payer MEDICAID, SELFPAY | PROVIDERS: PCP Family Medicine; Visit Provider Internal Medicine Nephrology | DX: N18.6 End stage renal disease (principal) | CPT/HCPCS: 90961 ==

== ENCOUNTER 2025-07-22 12:25 | Emergency (ER) | payer MEDICAID, SELFPAY ==
--- NOTE | ~2025-07-22 | XR_ITS ---
EXAMINATION: XR TIBIA AND FIBULA, RIGHT CLINICAL INFORMATION: wound at amp site, c/f osteo COMPARISON: None available. TECHNIQUE: AP and lateral views of the right tibia and fibula were obtained. FINDINGS: There is no knee joint effusion. Joint spaces are preserved. Moderate vascular calcifications are evident. Below the knee amputation has been performed. The procedure ulceration in the soft tissues at the distal lateral and of the femur. There is adjacent focal osteopenia in the medullary space and cortex with periosteal new bone formation concerning for osteomyelitis. The distal end of the remaining fibula appears intact. XR/XR tibia fibula RT 2V IMPRESSION: There is concern for osteomyelitis in the distal end of the remaining femur after amputation. Electronically signed by: Kenroy Torres MD 07/22/2025 01:45 PM EDT
[2025-07-22 12:39] VITALS: BP 158/92; PULSE 94; O2SAT 99; BMI 25.4
[2025-07-22 12:42] VITALS: BP 130/66; PULSE 86; RESP 14; TEMP 37; O2SAT 100
--- OUTSIDE RECORDS SUMMARY | 2025-07-22 12:48 | XMS_ITS | Encounter Summary ---
Author Organization [facility] Address [address] [facility] [address] [place] [address] Phone Care Team Providers Care Divorce Mediator Name Role Phone Owen, Cristina Montano MD Primary Care Provider U navailable Reason for Visit * Reason Comments Med Refill Encounter Details Date Type Department Care Team (Late st Contact Info) Description 01/04/2022 Refill [facility] [address] [facility] [address] [place] [address] Rick Hurd MD [address] [facility] [address] [place] [address] Social History Tobacco Use Types [...] on filedocumented in this encounter Care Teams Divorce Mediator Relationship Specialty Start Date End Date Ck, Cristina Mnotano MD PCP - General 11/13/20 documented as of this encounter
--- OUTSIDE RECORDS SUMMARY | 2025-07-22 12:48 | XMS_ITS | Encounter Summary ---
Author Organization [employer] Address [address] [facility] [place] [address] Care Team Providers Care Direct Support Worker Name Role Phone Cristina Stover MD Primary Care Provider +1- [phone] Cristina Stover MD Primary Care Provider +1- [phone] Cristina Stover MD Primary Care Provider +1- [phone] Encounter Details Date Type Department Care Team (Late st Contact Info) Description 06/04/2023 Orders Only [facility] MEDICINE [address] [place] [address] [phone] Cristina Stover MD [address] [place], [place] [phone] Uncomplicated opioid dependence (CMS/HCC); Polysubstance abuse (CMS/HCC); [...] type documented in this encounter Care Teams Direct Support Worker Relationship Specialty Start Date End Date Cristina Stover MD [address] [place] [phone] PCP - General Family Medicine 05/20/14 12/30/23 Cristina Stover MD [address] [place] [phone] PCP - General Family Medicine 01/06/24 08/29/24 Cristina Stover MD [address] [place] [phone] PCP - General Family Medicine 11/29/24 12/20/24 documented as of this encounter
--- OUTSIDE RECORDS SUMMARY | 2025-07-22 12:48 | XMS_ITS | Encounter Summary ---
Author Organization [employer] Address [address] [facility] 7t [place] [address] Care Team Providers Care Applied Marine Physics Professor Name Role Phone Unavailable Primary Care Provider Unavailabl e Reason for Visit * Reason Comments Med Refill Encounter Details Date Type Department Care Team (Late st Contact Info) Description 01/26/[address] [facility] PEDS [address] [place] [address] Araseli Rucker, ANP [address] [place] [address] Other insomnia Social History Tobacco Use Types [...]
--- OUTSIDE RECORDS SUMMARY | 2025-07-22 12:48 | XMS_ITS | Encounter Summary ---
Author Organization [employer] Address [address] [facility] 7t [place] [address] Care Team Providers Care Translator Deaf Name Role Phone Unavailable Primary Care Provider Unavailabl e Reason for Visit * Reason Comments Med Refill Encounter Details Date Type Department Care Team (Late st Contact Info) Description 06/13/2025 Refill [facility]EDS [address] [place] [address] Araseli Rucker, ANP [address] [place] [address] Other insomnia Social History Tobacco Use Types [...]
--- OUTSIDE RECORDS SUMMARY | 2025-07-22 12:48 | XMS_ITS | Encounter Summary ---
Author Organization [facility] Address [address] [place] [address] Phone Care Team Providers Care Media Account Executive Name Role Phone Gibson, Cristina Montano MD Primary Care Provider Randall meena Encounter Details Date Type Department Care Team (Late st Contact Info) Description 04/17/2022 Telephone [facility] [address] [place] [address] Rick Hurd MD [address] [facility] [address] [place] [address] Social History Tobacco Use Types [...] that process. Please call her back at [phone] documented in this encounter Plan of Treatment Not on file documented as of this encounter Visit Diagnoses Not on filedocumented in this encounter Care Teams Media Account Executive Relationship Specialty Start Date End Date Cristina Stover MD PCP - General 11/13/20 documented as of this encounter
--- OUTSIDE RECORDS SUMMARY | 2025-07-22 12:48 | XMS_ITS | Clinical Summary ---
Author Organization [employer] Address [address] [facility] 7t [place] [address] Care Team Providers Care Tub Puller Name Role Phone Unavailable Primary Care Provider [...] unspecified whether stage 3a or 3b CKD ([facility]) TEST BLOOD SUGAR THREE TIMES DAILY 100 strip 4 Active TRUEplus Lancets 33G miscIndications:D iabetes mellitus, stable ([facility]) TEST BLOOD SUGAR THREE TIMES DAILY 100 [...] Atrial flutter 10/05/2024 Overview (10/05/2024): -dx in [facility] 09/2024 Primary insomnia 07/14/2023 Assessment & [...] home is Coronary artery disease invo lving zuni coronary artery of zuni heart without angina pectoris 06/23/2023 Osteomyelitis 06/23/2023 Tobacco dependence 06/23/2023 Overview (06/23/2023): -motivational interviewing done PAD (peripheral artery disease) 06/23/2023 Assessment & Plan (07/14/2023 10:32 PM EDT): Sec to DM, HTN, smoking, cocaine use. 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 Has fu appt [...] via PICC line for osteomyelitis. Returned to [facility] with AMS and underwent right BKA 05/2023 Assessment & Plan (07/14/2023 10:33 PM EDT): Right BKA stump Is healing properly, urged to fu with vascular surgery. Will need PT /OT eval for right leg prosthesis fitting I will rx a transport wheelchair for mobility Altered mental status 06/04/2023 Overview (06/04/2023): Admitted 05/04/23 to [facility] for encephalopathy thought to be cocaine related. he was discharged against medical advice. Seen in [place] ER 05/09/23 with repot of myoclonic spasms. Urine drug screen positive for opiates, fentanyl and cocaine.seen 05/11/23 in [place] ER for continued abnormal movents and discharged home. Admitted to [facility] 05/12/23-05/14/23 for possible seizure activity. He [...] Encounters Date Type Department Care Team Description 06/13/2025 Refill [facility] MED & PEDS [address] [place] [address] Araseli Rucker, SANDRA Other insomnia 05/09/2025 Telephone [facility] MEDICINE [address] [place], [place] [phone] Yajaira Sykes, RN NEEDS PROVIDER APPT 05/09/2025 Orders Only GENERIC EXTERNAL DATA DEPARTMENT Provider, Generic External Data from Last 3 Months Immunizations Immunization Administration [...] 105 07/14/2023 1:20 PM EDT Temperature 36.4 C (97.5 F) 07/14/2023 1:20 PM EDT Respiratory Rate - - Oxygen Saturation 97% 07/14/2023 1:20 PM EDT Inhaled Oxygen Concentration - - Weight - - Height - - Body Mass Index - - Plan of Treatment Health Maintenance Due Date Last Done Comments CT Colonography 1978 Colonoscopy 1978 Colorectal Cancer Screening 1978 FIT DNA/Cologuard 1978 FIT 1978 FOBT 1978 Lipid Panel 1978 Sigmoidoscopy 1978 Disability Screening 1978 Diabetes: Foot Exam 1988 Eye Exam 1988 Alcohol/Substance Use Screening 1990 Family Planning (PISQ) 1993 Pneumococcal Vaccine: Pediatrics (0 to 5 Years) and At-Risk Patients (6 to 49) Years (2 of 2 - PCV) 11/16/2016 11/16/2015 Diabetes: Urine Protein Screening 12/13/2020 12/13/2019, 11/17/2019, 10/14/2019 Diabetes: Hemoglobin A1C 10/13/2023 07/14/2023, 11/04 SDOH Screening 06/10/2024 06/10/2023 Depression Screening 07/14/2024 07/14/2023, 07/14/20 23 DTaP/Tdap/Td Vaccines (2 - Td or Tdap) 12/28/2024 12/28/2014 COVID-19 Vaccine (1 - season) 2025 Influenza Vaccine (#1) 2025 9, 11/12/2018, 07/25/2016, Additional history exists Tobacco Screening 09/16/2025 09/16/2024 Zoster Vaccines (1 [...] Procedure Name Priority Date/Time Associated Diagnosis Comments XR CHEST 1 VIEW Routine 05/09/2025 8:40 AM EDT HIGH SENSITIVITY TROPONIN I Routine 05/09/2025 7:36 AM EDT GLUCOSE, WHOLE BLOOD Routine 05/09/2025 7:10 AM EDT VENOUS BLOOD GAS Routine 05/09/2025 6:03 AM EDT HIGH SENSITIVITY TROPONIN I Routine 05/09/2025 5:54 AM EDT ETHANOL Routine 05/09/2025 5:54 AM EDT COMPREHENSIVE METABOLIC PANEL Routine 05/09/2025 5:54 AM EDT LACTIC ACID Routine 05/09/2025 5:54 AM EDT CBC WITH AUTO DIFFERENTIAL Routine 05/09/2025 5:54 AM EDT SARS COV2/INFLUENZA A/B AND RSV RNA QL NAAT Routine 05/09/2025 5:54 AM EDT POCT GLYCATED HEMOGLOBIN, TOTAL Routine 07/14/2023 1:40 PM EDT Type 2 diabetes mellitus with stage 4 chronic kidney disease, with long-term current use of insulin (CMS/HCC) ZZZ HISTORICAL MICROALBUMIN, RANDOM Routine 12/13/2019 1:40 PM EST HM HEPATITIS C ANTIBODY Routine 06/22/2019 HM HIV 1/2 ANTIGEN AND ANTIBODY Routine 06/22/2019 from Last 3 Months or Most Recently Relevant to Health Maintenance Results * XR Chest 1 View (05/09/2025 8:40 AM EDT) Anatomical Region Laterality Modality Chest Radiographic Hilda ging 05/09/2025 8:40 AM EDT Narrative 05/09/2025 9:01 AM EDT [place] [id number] XRay Report Signed Patient: Deandre Luong MR#: [id number] 3 : 1980 Acct:[id number] Age/Sex: 44 / M ADM Date: 05/09/25 Loc: HO.ED Attending Dr: Ordering Physician: Jose Samuel MD Date of Service: 05/09/25 Procedure(s): XR chest 1V Accession Number(s): [id number] cc: Jose Samuel MD; [facility] EXAMINATION: XR CHEST 1 VIEW HISTORY: SOB COMPARISON: Comparison is made with the prior examination dated 12/17/2024. FINDINGS: Two AP portable views of the chest performed at 8:34 AM are submitted. A right-sided dialysis catheter is unchanged in position. The lungs are expanded and clear. There is no pleural effusion, pneumothorax, or pulmonary vascular congestion. The heart is normal in size. The bones are intact. XR/XR chest 1V IMPRESSION: No acute cardiopulmonary abnormality. Electronically signed by: García Loza MD 05/09/2025 08:58 AM EDT RP Dictated By: García Loza MD Signed By: <Electronically signed by García Loza MD in OV> 05/09/25 0858 DD/ TD/TT: 05/09/25 0849 [employer] Supervisor: Procedure Note Donotuseinterpreter, Image - 05/09/2025 [place] [address] XRay Report Signed Patient: Deandre Luong [facility]#: [id number] 3 : 1980Acct:[id number] Age/Sex: 44 / MADM Date: 05/09/25 Loc: HO.ED Attending Dr: Ordering Physician: Jose Samuel MD Date of Service: 05/09/25 Procedure(s): XR chest 1V Accession Number(s): [id number] cc: Jose Samuel MD; [facility] EXAMINATION: XR CHEST 1 VIEW HISTORY: SOB COMPARISON: Comparison is made with the prior examination dated 12/17/2024. FINDINGS: Two AP portable views of the chest performed at 8:34 AM are submitted. A right-sided dialysis catheter is unchanged in position. The lungs are expanded and clear. There is no pleural effusion, pneumothorax, or pulmonary vascular congestion. The heart is normal in size. The bones are intact. XR/XR chest 1V IMPRESSION: No acute cardiopulmonary abnormality. Electronically signed by: García Loza MD 05/09/2025 08:58 AM EDT RP Dictated By: García Loza MD Signed By: <Electronically signed by García Loza MD in OV> 05/09/25 0858 DD/ 0840 TD/TT: 05/09/25 0849 [employer] Supervisor: [facility] External Provider IMG XR PROCEDURES Final Result * (ABNORMAL) High Sensitivity Troponin I (05/09/2025 7:36 AM EDT) Only the most recent of2 resultswithin the time period is included. TROPONIN I HIGH SENSITIVITY 2,867.7(H H) <3.5 - 35.0 ng/L [facility] Comment:Critical value for H S-TnI: Results called to and read caroly: HAZEL Person calling: EVELIOMichael Date: 05/09/25 Time: 821The Roe high sensitivity Troponin-I results should beused in conjunction with other diagnostic information suchas ECG, clinical observations and information, and patientsymptoms to aid in the diagnosis of NM. 05/09/2025 7:36 AM EDT 05/09/2025 7:43 AM EDT Generic External Data Provider LAB BLOOD ORDERAB LES Final Result Performing Organization Address City/[facility]/ZIP Co de Phone Number [facility] [address] [place] [phone] * Glucose, Whole Blood (05/09/2025 7:10 AM EDT) Glucose, Whole Blood 108 60 - 115 mg/dL [facility] Comment:METER #: [id number] 05/09/2025 7:10 AM EDT 05/09/2025 7:33 AM EDT Generic External Data Provider LAB BLOOD ORDERAB LES Final Result Performing Organization Address City/[facility]/ZIP Co de Phone Number [facility] [address] [place] [phone] * (ABNORMAL) VENOUS BLOOD GAS (05/09/2025 6:03 AM EDT) VBG pH 7.28(L) 7.32 - 7.43 [facility] Comment:METER #: [id number] additional_comment: ADAM MONTERO VBG PCO2 58 mmHg [facility] Comment:METER #: [id number] additional_comment: ADAM MONTERO VBG PO2 42 mmHg [facility] Comment:METER #: [id number] additional_comment: CB CELIOB VBG Base Excess 0.4 mmol/L [facility] Comment:METER #: [id number] additional_comment: ADAM MONTERO VBG HCO3 28(H) 22 - 26 mmol/L [facility] Comment:METER #: [id number] additional_comment: ADAM MONTERO O2 Sat, Homar 57.0 % [facility] Comment:METER #: [id number] additional_comment: ADAM MONTERO 05/09/2025 6:03 AM EDT 05/09/2025 6:08 AM EDT us Generic External Data Provider LAB BLOOD ORDERAB LES Final Result Performing Organization Address [facility]/ZIP Co de Phone Number [facility] [address] [place] [phone] * Ethanol (05/09/2025 5:54 AM EDT) ETHANOL (MG/DL) IN SER/PLAS <10 mg/dL [facility] Comment:Serum/plasma ethanol results are to be used formedical/treatment purposes only. 05/09/2025 5:54 AM EDT 05/09/2025 6:01 AM EDT us Generic External Data Provider LAB BLOOD ORDERAB LES Final Result Performing Organization Address [facility]/ZIP Co de Phone Number [facility] [address] [place] [phone] * SARS-CoV-2 RNA, Influenza A/B, and RSV RNA, Ql NAAT (05/09/2025 5:54 AM EDT) Pathologist [facility] Influenza A PCR NEGATIVE Negative [facility] Influenza B PCR NEGATIVE Negative [facility] Resp Syncy Virus RNA Qual PCR NEGATIVE Negative [facility] SARS COV2 PCR NEGATIVE Negative [facility] Comment:All test results mus t be [...] use by authorized laboratories.Testing performed on the [employer] GeneXpert utilizingreal-time RT-PCR.All SARS CoV2 and positive influenza A/B results arereported to [facility]. 05/09/2025 5:54 AM EDT 05/09/2025 6:01 AM EDT us Generic External Data Provider LAB MICROBIOLOGY - GENERAL ORDERABLES Final Result [facility] [address] [place] [phone] * (ABNORMAL) CBC auto differential (05/09/2025 5:54 AM EDT) [facility] White Blood Count 12.8(H) 4.8 - 10.8 X10*3/uL [facility] Red Blood Count 4.08(L) 4.60 - 5.80 X10*6/uL [facility] Hemoglobin 11.9(L) 14.0 - 18.0 g/dl [facility] Hematocrit 36.1(L) 42.0 - 52.0 % [facility] Mean Corpuscular Volume 88.5 80.0 - 98.0 fL [facility] Mean Corpuscular Hemoglobin 29.2 27.0 - 33.0 pg [facility] Mean Corpuscular HGB Conc 33.0 31.0 - 36.0 g/dl [facility] Red Cell Distribution Width 15.4 11.0 - 16.0 % [facility] Platelet Count 253 160 - 400 X10*3/uL [facility] Mean Platelet Volume 10.7 9.4 - 12.4 fL [facility] Neutrophils Percent Auto 82.4(H) 45 - 73 % [facility] Imm Gran Pct Auto 0.4 0.0 - 0.4 % [facility] Lymphocytes Percent Auto 9.3(L) 20 - 40 % [facility] Monocytes Percent Auto 5.6 2 - 11 % [facility] Eosinophils Percent Auto 1.9 0 - 4 % [facility] Basophils Percent Auto 0.4 0 - 2 % [facility] NRBC Pct Auto 0.0 0.0 - 0.2 /100WBC [facility] Neutrophils Absolute Auto 10.6(H) 2.0 - 8.3 x10*3/uL [facility] Imm Gran Abs Auto 0.05(H) 0.00 - 0.03 X10*3/uL [facility] Lymphocytes Absolute Auto 1.2 1.2 - 4.9 X10*3/uL [facility] Monocytes Absolute Auto 0.7 0.1 - 1.2 X10*3/uL [facility] Eosinophils Absolute Auto 0.2 0.0 - 0.4 X10*3/uL [facility] Basophils Absolute Auto 0.1 0.0 - 0.2 X10*3/uL [facility] NRBC Abs Auto 0.000 0.0 - 0.012 X10*3/uL [facility] 05/09/2025 5:54 AM EDT 05/09/2025 6:01 AM EDT us Generic External Data Provider LAB BLOOD ORDERAB LES Final Result [facility] [address] [place] [phone] * Lactic Acid (05/09/2025 5:54 AM EDT) Lactic Acid 1.0 0.5 - 2.0 mmol/L [facility] 05/09/2025 5:54 AM EDT 05/09/2025 6:01 AM EDT us Generic External Data Provider LAB BLOOD ORDERAB LES Final Result [facility] [address] [place] [phone] * (ABNORMAL) Comprehensive Metabolic Panel (05/09/2025 5:54 AM EDT) Pathologist [facility] Sodium 135 135 - 145 mmol/L [facility] Potassium 5.2(H) 3.3 - 5.1 mmol/L [facility] Chloride 95(L) 96 - 108 mmol/L [facility] Carbon Dioxide 22 22 - 29 mmol/L [facility] Anion Gap 23(H) 12 - 20 [facility] Urea Nitrogen (BUN) 47(H) 9 - 16 mg/dL [facility] Creatinine, Serum 7.56(HH) 0.5 - 1.4 mg/dL [facility] Comment:Critical value for t est(s):CREA2 Results called to and readback by:MARCELINA Person calling: STACEYASAB Date: 05/09/25Time:06:27 Creatinine Clr Calc Pharmacy 12.2 [facility] Comment:eGFR (calculated fro m the MDRD study equation) and eCrCl(calculated from the Cockcroft-Gault equation) are based ondifferent parameters and may not yield comparable results.If eCrCl result is absurd, please check patient'sheight/weight. Estimated Glomerular Filt Rate 8 [facility] Comment:Chronic Kidney Disea se: Estimated GFR < 60 mL/min/1.71l9Dyfgnp Kidney Disease: Estimated GFR < 15 mL/min/1.73m2 Glucose 118(H) 60 - 115 mg/dL [facility] Calcium 8.3(L) 8.4 - 10.2 mg/dL [facility] Bilirubin, Total 0.4 0.0 - 1.0 mg/dL [facility] Aspartate Amino Transferase 38(H) 5 - 37 U/L [facility] Alanine Aminotransferase 9 0 - 40 U/L [facility] Total Protein 8.4(H) 6.5 - 8.0 g/dL [facility] Albumin Level 3.6 3.5 - 5.0 g/dL [facility] Alkaline Phosphatase 100 39 - 117 U/L [facility] 05/09/2025 5:54 AM EDT 05/09/2025 6:01 AM EDT Generic External Data Provider LAB BLOOD ORDERAB LES Final Result [facility] [address] [place] [phone] * (ABNORMAL) POCT A1C (07/14/2023 1:40 PM EDT) Hemoglobin A1C 11.1(A) 4.0 - 6.0 % QC Media Lot # [id number] Lot# Expiration Date 818 Blood 07/14/2023 1:40 PM EDT Awilda Walters MD POINT OF CARE TEST ENTER /EDIT ORDERABLES Final Result * MICROALBUMIN, RANDOM (12/13/2019 1:40 PM EST) CREATININE, RANDOM URINE 32.74 MG/DL [facility] MICALB/CRE RATIO RANDOM URINE 2736.7 ug/mg cr [facility] Comment: Albumin/Creatinine Ratio Reference Ranges: Normal: < 30 ug/mg creatinine Microalbuminuria: 30 - 300 ug/mg creatinine Clinical Albuminuria: > 300 ug/mg creatinine MICROALBUMIN, RANDOM URINE 896.0 MG/L [facility] 12/13/2019 1:40 PM EST us Rick Hurd MD HISTORICAL/NON ORDERABLE LABS Final Result [facility] [address] * HM Hepatitis C Antibody (06/22/2019) Hepatitis C Antibody Nonreactive Blood Historical Provider HEALTH MAINTENANCE Final Result * HIV 1/2 Antigen and Antibody (06/22/2019) HIV Ag/Ab Nonreactive Historical Provider HEALTH MAINTENANCE Final Result from Last 3 Months or Most Recently Relevant to Health Maintenance Insurance C3
--- OUTSIDE RECORDS SUMMARY | 2025-07-22 12:49 | XMS_ITS | Clinical Summary ---
Author Organization [facility] Address [address] [place] [address] Phone Care Team Providers Care Job Molder Name Role Phone Cristina Stover MD Primary [...] on 05/20 [facility], missed POP appts. Has fu appt [...] status 06/04/2023 Overview (01/23/2024): Admitted 05/04/23 to [facility] for encephalopathy thought to be cocaine related. he was discharged against medical advice. Seen in [place] ER 05/09/23 with repot of myoclonic spasms. Urine drug screen positive for opiates, fentanyl and cocaine.seen 05/11/23 in [place] ER for continued abnormal movents and discharged home. Admitted to [facility] 05/12/23-05/14/23 for possible seizure activity. He [...] 9,1978,08/21 Influenza Split 07/29/2012 Influenza, Injectable, [place] Canine Kidney, Preservative Free 11/16/2015 Influenza, Quadrivalent, [...] Hemoglobin A1C 10/13/2023 07/14/2023 Influenza Vaccine (#1) 2025 9, 11/12/2018, 07/25/2016, Additional history exists Pneumococcal Vaccine: 50+ Years Discontinued 6 Insurance [place] Care Teams Job Molder Relationship Specialty Start Date End Date Tattnall, Cristina Montano MD PCP - General 11/13/20
--- OUTSIDE RECORDS SUMMARY | 2025-07-22 12:49 | XMS_ITS | Encounter Summary ---
Author Organization [employer] Address [address] [facility] 7t [place] [address] Care Team Providers Care Silvering Applicator Name Role Phone Cristina Stover MD Primary Care Provider +1- [phone] Cristina Stover MD Primary Care Provider +1- [phone] Cristina Stover MD Primary Care Provider +1- [phone] Encounter Details Date Type Department Care Team (Late st Contact Info) Description 01/17/2023 Orders Only [facility] MED & PEDS [address] [place], [place] [phone] Nay Benitez LPN Social History Tobacco Use [...] on filedocumented in this encounter Care Teams Silvering Applicator Relationship Specialty Start Date End Date Cristina Stover MD [address] [place] [phone] PCP - General Family Medicine 05/20/14 12/30/23 Cristina Stover MD [address] [place] [phone] PCP - General Family Medicine 01/06/24 08/29/24 Cristina Stover MD [address] [place] [address] PCP - General Family Medicine 11/29/24 12/20/24 documented as of this encounter
--- OUTSIDE RECORDS SUMMARY | 2025-07-22 12:49 | XMS_ITS | Encounter Summary ---
Author Organization [employer] Address [address] [facility] 7 [place] [address] Care Team Providers Care Nozzle Operator Name Role Phone Cristina Stover MD Primary Care Provider +1- [phone] Cristina Stover MD Primary Care Provider +1- [phone] Cristina Stover MD Primary Care Provider +1- [phone] Reason for Visit * Reason Onset Date Comments Hospital Follow-up 11/26/2023 Encounter Details Date Type Department Care Team ([facility] st Contact Info) Description 11/26/2023 Telephone [facility] MED[facility]INE [address] [place], [place] [phone] Cristina Stover MD [address] [place], [place] [phone] Hospital Follow-up Social History Tobacco Use Types [...] from pt requesting a HDF appt. Hospital: [facility] Date of admission: 11/16/2023 Discharge date: 11/25/2023 Diagnosed: Surgery (amputation) documented in this encounter Plan of Treatment Not on file documented as of this encounter Visit Diagnoses Not on filedocumented in this encounter Care Teams Nozzle Operator Relationship Specialty Start Date End Date Cristina Stover MD [address] [place] [phone] PCP - General Family Medicine 05/20/14 12/30/23 Cristina Stover MD [address] [place] [phone] PCP - General Family Medicine 01/06/24 08/29/24 Cristina Stover MD [address] [place] [phone] PCP - General Family Medicine 11/29/24 12/20/24 documented as of this encounter
--- OUTSIDE RECORDS SUMMARY | 2025-07-22 12:49 | XMS_ITS | Encounter Summary ---
Author Organization [employer] Address [address] [facility] 7t [place] [address] Care Team Providers Care Space Scheduler Name Role Phone Unavailable Primary Care Provider Unavailabl e Reason for Visit * Reason Comments Med Refill Encounter Details Date Type Department Care Team (Late st Contact Info) Description 04/06/2025 Refill [facility] MEDICINE [address] [place] [address] Cristina Stover MD [address] [place] [address] Social History Tobacco Use Types Packs/Day Years [...]
--- OUTSIDE RECORDS SUMMARY | 2025-07-22 12:49 | XMS_ITS | Encounter Summary ---
Author Organization [employer] Address [address] [facility] 7t [place] [address] Care Team Providers Care Rotoformer Backtender Name Role Phone Cristina Stover MD Primary Care Provider +1- [phone] Cristina Stover MD Primary Care Provider +1- [phone] Cristina Stover MD Primary Care Provider +1- [phone] Encounter Details Date Type Department Care Team (Late st Contact Info) Description 03/20/2023 Orders Only [facility] MED & PEDS [address] [place], [place] [phone] Nay Benitez LPN Social History Tobacco Use [...] on filedocumented in this encounter Care Teams Rotoformer Backtender Relationship Specialty Start Date End Date Cristina Stover MD [address] [place] [address] PCP - General Family Medicine 05/20/14 12/30/23 Cristina Stover MD [address] [place] [address] PCP - General Family Medicine 01/06/24 08/29/24 Cristina Stover MD [address] [place] [address] PCP - General Family Medicine 11/29/24 12/20/24 documented as of this encounter
--- OUTSIDE RECORDS SUMMARY | 2025-07-22 12:49 | XMS_ITS | Encounter Summary ---
Author Organization [employer] Address [address] [facility] 7t [place] [address] Care Team Providers Care Manager Plumbing Name Role Phone Cristina Stover MD Primary Care Provider +1- [phone] Cristina Stover MD Primary Care Provider +1- [phone] Cristina Stover MD Primary Care Provider +1- [phone] Encounter Details Date Type Department Care Team (Late st Contact Info) Description 11/19/2022 Orders Only [facility] MED & PEDS [address] [place], [place] [phone] Nay Benitez LPN Social History Tobacco Use [...] filedocumented in this encounter Care Teams Manager Plumbing Relationship Specialty Start Date End Date Cristina Stover MD [address] [place] [address] PCP - General Family Medicine 05/20/14 12/30/23 Cristina Stover MD [address] [place] [address] PCP - General Family Medicine 01/06/24 08/29/24 Cristina Stover MD [address] [place] [address] PCP - General Family Medicine 11/29/24 12/20/24 documented as of this encounter
--- OUTSIDE RECORDS SUMMARY | 2025-07-22 12:49 | XMS_ITS | Encounter Summary ---
Author Organization [employer] Address [address] [facility] 7t [place] [address] Care Team Providers Care Welder Manufacture Name Role Phone Cristina Stover MD Primary Care Provider +1- [phone] Cristina Stover MD Primary Care Provider +1- [phone] Cristina Stover MD Primary Care Provider +1- [phone] Encounter Details Date Type Department Care Team (Late st Contact Info) Description 10/17/2023 Telephone [facility] MEDIC[facility] [address] [place], [place] [phone] Cristina Stover MD [address] [place], [place] [phone] Social History Tobacco Use Types Packs/Day Years [...] mom of pt requesting Phone number of [facility] wheel chair clinic. PCP DR. Stover documented in this encounter Plan of Treatment Not on file documented as of this encounter Visit Diagnoses Not on filedocumented in this encounter Care Teams Welder Manufacture Relationship Specialty Start Date End Date Cristina Stover MD [address] [place] [address] PCP - General Family Medicine 05/20/14 12/30/23 Cristina Stover MD [address] [place] [address] PCP - General Family Medicine 01/06/24 08/29/24 Cristina Stover MD [address] [place] [address] PCP - General Family Medicine 11/29/24 12/20/24 documented as of this encounter
--- OUTSIDE RECORDS SUMMARY | 2025-07-22 12:49 | XMS_ITS | Clinical Summary ---
Author Organization [facility] Address [address] [facility] [address] [place] [address] Phone Care Team Providers Care Newspaper Correspondent Name Role Phone Cristina Stover MD Primary Care Provi jason Allergies No known active allergies Medications metFORMIN (GLUCOPHAGE) 1000 MG tablet Take 1,000 mg by mouth 2 (two) times a day with meals. Active metFORMIN (GLUCOPHAGE) 500 MG tablet Take 500 mg by mouth daily with lunch. Active lisinopril (PRINIVIL,ZESTR IL) 20 MG tablet Take 20 mg by mouth daily. Active glipiZIDE (GLUCOTROL) 10 MG tablet Take 10 mg by mouth daily. Active omeprazole (PRILOSEC) 20 mg TbEC Take 20 mg by mouth daily before breakfast. Active oxyCODONE 5 MG immediate release tablet Take 1-2 tablets (5-10 mg total) by mouth every 6 (six) hours as needed for moderate pain or severe pain (moderate to severe pain.). Pt. may request partial fill 6 tablet 11/07/2019 Active metoclopramide HCl (REGLAN) 10 MG tablet Take 1 tablet (10 mg total) by mouth 3 (three) times a day as needed (headache). 20 tablet 02/16/2022 Active Social History Tobacco Use Types Packs/Day Years Used Date Smoking Tobacco: Every Day Cigarettes Smokeless Tobacco: Never Alcohol Use Standard Drinks/Week Comments Not Currently 0 (1 standard drink = 0.6 oz pur e alcohol) Education Answer Date Recorded Are you interested in more education? Not on odette e 02/28/2023 Are you concerned about learning? Not on file 02/28/2023 No 02/28/2023 No 02/28/2023 Digital Access Answer Date Recorded No 03/31/2023 No 03/31/2023 No 03/31/2023 Reliable internet access at home? Not on file 03/31/2023 Device with a working camera? Not on file Sex and Gender Information Value Date Recorded Sex Assigned at Male 12/26/2018 1:15 AM EST Legal Sex Male 9:25 PM EDT Gender Identity Male 12/26/2018 1:15 AM EST Sexual Orientation Straight 12/26/2018 1: 15 AM EST Last Filed Vital Signs Vital Sign Reading Time Taken Comments Blood Pressure 119/64 02/16/2022 7:33 PM EDT Pulse 84 02/16/2022 7:33 PM EDT Temperature 36.6 C (97.9 F) 02/16/2022 4:51 PM EDT Respiratory Rate 18 02/16/2022 7:33 PM EDT Oxygen Saturation 100% 02/16/2022 7:33 PM EDT Inhaled Oxygen Concentration - - Weight 90.7 kg (200 lb) 02/16/2022 4:51 PM EDT Height 182.9 cm (6') 02/16/2022 4:51 PM EDT Body Mass Index 27.12 02/16/2022 4:51 PM EDT Plan of Treatment Health Maintenance Due Date Last Done Comments LIPID PANEL 1978 DEPRESSION SCREENING 1990 SMOKING Hx and SMOKELESS TOBACCO SCREENING 1991 HEPATITIS C SCREENING 1996 HIV ONE-TIME SCREENING (18-65 YEARS) 1996 PNEUMOCOCCAL VACCINES (0-49 years) (2 of 2 - PCV) 11/16/2016 11/16/2015 CREATININE LEVEL 02/16/2023 02/16/2022, 03/2021, 06/23/2019, Additional history exists POTASSIUM LEVEL 02/16/2023 02/16/2022, 07/0 03/2021, 06/23/2019, Additional history exists COLOGUARD 2023 COLONOSCOPY 2023 COLORECTAL CANCER SCREENING 2023 FIT TEST 2023 FOBT 2023 SIGMOIDOSCOPY 2023 VIRTUAL COLONOSCOPY 2023 Adult Td,Tdap Booster 12/28/2024 12/28/2014 INFLUENZA VACCINE (#1) 2025 9, 11/12/2018, 07/25/2016, Additional history exists COVID-19 VACCINE ( season) 2025 HEPATITIS A VACCINES Aged Out No long er eligible based on patient's age to complete this topic HIB VACCINES Aged Out No longer eligi ble based on patient's age to complete this topic MENINGOCOCCAL VACCINES (ACWY) Aged Out No longer eligible based on patient's age to complete this topic MENINGOCOCCAL VACCINES (B) Aged Out N o longer eligible based on patient's age to complete this topic Medical Devices Not on file Procedures Procedure Name Priority Date/Time Associated Diagnosis Comments BASIC METABOLIC PANEL STAT 02/16/2022 5:52 PM EDT from Last 3 Months or Most Recently Relevant to Health Maintenance Results * (ABNORMAL) Basic metabolic panel (02/16/2022 5:52 PM EDT) SODIUM 127(L) 133 - 146 mmol/L [facility] CHLORIDE 92(L) 96 - 108 mmol/L [facility] POTASSIUM 5.6(H) 3.3 - 5.1 mmol/L [facility] Comment:Specimen slightly he molyzed, result may be falsely elevated. CO2 27 21 - 35 mmol/L [facility] BUN 40(H) 6 - 19 mg/dL [facility] CREATININE 3.30(H) 0.5 - 1.5 mg/dL [facility] GLUCOSE 325(H) 70 - 99 mg/dL [facility] CALCIUM 9.7 8.4 - 10.3 mg/dL [facility] EGFR 23(L) >59 mL/min/1.7 3m2 [facility] Comment:Estimated glomerular filtration rate calculated using the CKD-EPI refit equation. ANION GAP 14 10 - 20 mmol/L [facility] Blood 02/16/2022 5:52 PM EDT 02/16/2022 6:00 PM EDT us Jeny Feldman MD LAB BLOOD ORDERABLES Final R esult [address] [address] from Last 3 Months or Most Recently Relevant to Health Maintenance Insurance C3 ACO C3 ACO C3 ACO C3 ACO C3 ACO C3 ACO C3 ACO C3 ACO C3 ACO Care Teams Newspaper Correspondent Relationship Specialty Start Date End Date Ck, Cristina Petersen MD [address] [place] [address] PCP - General 08/19/17 Additional Source Comments The information contained in this document represents components of the legal health record. It is not the complete legal health record.[facility]
--- OUTSIDE RECORDS SUMMARY | 2025-07-22 12:49 | XMS_ITS | Encounter Summary ---
Author Organization [employer] Address [address] [facility] 7 [place] [address] Care Team Providers Care Peat Shredder Tender Name Role Phone Cristina Stover MD Primary Care Provider +1- [phone] Cristina Stover MD Primary Care Provider +1- [phone] Cristina Stover MD Primary Care Provider +1- [phone] Reason for Visit * Reason Comments Med Refill Encounter Details Date Type Department Care Team ([facility] st Contact Info) Description 05/26/2023 Refill [facility] [address] [place] [address] Araseli Rucker ANP [address] [place] [address] Social History Tobacco Use Types Packs/Day Years [...] on filedocumented in this encounter Care Teams Peat Shredder Tender Relationship Specialty Start Date End Date Cristina Stover MD [address] [place] [address] PCP - General Family Medicine 05/20/14 12/30/23 Cristina Stover MD [address] [place] [address] PCP - General Family Medicine 01/06/24 08/29/24 Cristina Stover MD [address] [place] [address] PCP - General Family Medicine 11/29/24 12/20/24 documented as of this encounter
--- OUTSIDE RECORDS SUMMARY | 2025-07-22 12:49 | XMS_ITS | Encounter Summary ---
Author Organization [facility] Address [address] [facility] [address] [place] [address] Phone Care Team Providers Care Formula Room Worker Name Role Phone Ck, Cristina Petersen MD Primary Care Provi jason Encounter Details Date Type Department Care Team (Late st Contact Info) Description 02/16/2022 Procedure [facility], Ct Scan - [address] [address] Social History Tobacco Use Types Packs/Day Years [...] 1:15 AM EST Sexual Orientation Straight 12/26/2018 1 :15 AM EST documented as of this encounter Functional Status * Calculated C-SSRS Risk Score (Lifetime/Recent) Answer Date of Assessment Author No Risk Indicated 02/16/2022 4:52 PM EDT Alan Gutiérrez RN * [place] Suicide Severity Rating Scale (Screener/Recent Self-Report) Question Answer Date of Assessment Author 1. Wish to be (Past 1 Month) No 022 4:52 PM EDT Alan Gutiérrez, JOVITA 2. Non-Specific Active Suici krunal Thoughts (Past 1 Month) No 02/16/2022 4:52 PM EDT Alan Gutiérrez, JOVITA 6. Suicidal Behavior (Lifetime) No 4:52 PM EDT Alan Gutiérrez, JOVITA documented as of this encounter Plan of Treatment Not on file documented as of this encounter Visit Diagnoses Not on filedocumented in this encounter Care Teams Formula Room Worker Relationship Specialty Start Date End Date Semmes, Cristina Petersen MD [address] [place] [address] PCP - General 08/19/17 documented as of this encounter Additional Source Comments The information contained in this document represents components of the legal health record. It is not the complete legal health record.[facility]
--- OUTSIDE RECORDS SUMMARY | 2025-07-22 12:49 | XMS_ITS | Encounter Summary ---
Author Organization [employer] Address [address] [place] [address] Care Team Providers Care Dependency Case Manager Name Role Phone Cristina Stover MD Primary Care Provider +1- [phone] Cristina Stover MD Primary Care Provider +1- [phone] Cristina Stover MD Primary Care Provider +1- [phone] Reason for Visit * Reason Onset Date Comments PT1 05/30/2023 Encounter Details Date Type Department Care Team (Late st Contact Info) Description 05/30/2023 Telephone [facility] MEDICINE [address] [place] [phone] Cristina Stover MD [address] [place] [phone] PT1 Social History Tobacco Use Types Packs/Day [...] PT1 Date: 06/02/23 Time: 9 am address: [address] [place] [address] specialty: hospital f/u # visits: senior gis analyst: n/a Wheelchair: yes documented in this encounter Plan of Treatment Not on file documented as of this encounter Visit Diagnoses Not on filedocumented in this encounter Care Teams Dependency Case Manager Relationship Specialty Start Date End Date Cristina Stover MD [address] [place] [address] PCP - General Family Medicine 05/20/14 12/30/23 Cristina Stover MD [address] [place] [address] PCP - General Family Medicine 01/06/24 08/29/24 Cristina Stover MD [address] [place] [address] PCP - General Family Medicine 11/29/24 12/20/24 documented as of this encounter
--- NOTE | 2025-07-22 12:54 | ED.GENADULT ---
HPI - General Adult General Chief complaint: General Medical Stated complaint: RT LEG PAIN X 2 WKS PER EMS Time Seen by Provider: 07/22/25 12:53 Source: patient, EMS, RN notes reviewed and old records reviewed Mode of arrival: EMS Limitations: no limitations History of Present Illness ED Provider: Evelin HPI narrative: Patient is a 45-year-old male with history of ESR on hemodialysis, anemia, right BKA, paroxysmal a flutter, cardiomyopathy he, COPD, seizures, polysubstance abuse, DM, HTN sent to the ED from dialysis due to elevated white blood cell count. They are concerned for possible infection to stump right lower leg. Patient states that at times this wound does bleed when he takes off his prosthetic leg. Patient states that he received 2 hours of his dialysis treatment today. He denies any complaint of pain to his right lower extremity. Denies recent fevers, chills, body aches. Denies any recent URI symptoms. MD complaint: abnormal labs Related Data Home Medications ?Medication ?Instructions ?Recorded ?Confirmed insulin lispro 100 unit/mL See Protocol subcut TIDAC 09/28/24 05/09/25 subcutaneous pen (Humalog KwikPen (U-100) Insulin) melatonin 5 mg tablet 5 mg PO BEDTIME PRN insomnia 09/28/24 05/09/25 insulin glargine 100 unit/mL (3 15 unit subcut BEDTIME 12/17/24 05/09/25 mL) subcutaneous pen buprenorphine 8 mg-naloxone 2 mg 1 film sublingual TID 05/09/25 05/09/25 sublingual film (Suboxone) Previous Rx's ?Medication ?Instructions ?Recorded Dakins solution / strength #1 ea 09/25/24 multivitamin 1 tab PO DAILY #30 tabs 09/25/24 omeprazole 20 mg capsule,delayed 20 mg PO DAILY@0630 #30 caps 09/25/24 release pen needle, diabetic 32 gauge x #100 ea 09/25/2411/06 blood sugar diagnostic (FreeStyle #100 ea 09/29/24 Lite Strips) blood-glucose meter #1 ea 09/29/24 lancets 28 gauge (FreeStyle #100 ea 09/29/24 Lancets) polyethylene glycol 3350 17 gram 17 g PO DAILY PRN Constipation 11/25/24 oral powder packet #120 ea oxycodone 10 mg tablet 10 mg PO Q8H PRN pain (scale score 12/23/24 7-10) #12 tabs aspirin 81 mg tablet 81 mg PO DAILY #30 tabs 05/10/25 buprenorphine 8 mg-naloxone 2 mg 1 film sublingual TID 5 days #15 ea 07/01/25 sublingual film (Suboxone) cephalexin 500 mg capsule 500 mg PO Q8H 10 days #30 caps 07/22/25 doxycycline hyclate 100 mg capsule 100 mg PO BID #20 caps 07/22/25 Allergies Allergy/AdvReac Type Severity Reaction Status Date / Time No Known Allergies (No Known Allergy Verified 07/22/25 12:41 Allergies*) Review of Systems Review of Systems: As per HPI Yes all other systems are reviewed and are negative Constitutional: Constitutional: Reports as per HPI [facility] Past Medical History Medical History (Updated 07/22/25 @ 14:54 by Melissa Waters NP) ESRD needing dialysis ESRD on dialysis Anemia in chronic kidney disease (CKD) ESRD (end stage renal disease) on dialysis Open wound Opioid use disorder, severe, dependence Bacteremia Volume overload Paroxysmal atrial flutter Cardiomyopathy Pericardial effusion Atrial flutter Need for acute hemodialysis Leukocytosis Anemia Anemia Transfusion history Atrial flutter, paroxysmal COPD (chronic obstructive pulmonary disease) Constipation Callus of foot Seizure Polysubstance abuse CKD (chronic kidney disease) stage 3, GFR 30-59 ml/min Foot osteomyelitis, left Amputation of toe of right foot Diabetic ulcer of right foot Hyperglycemia due to type 2 diabetes mellitus Renal failure Sleep apnea Diabetes HTN (hypertension) Surgical History Hx of right BKA History of surgical procedure (~04/24/23) Social History Social History Household Members: Family Household Members Other:: mother Housing: Apartment Do you presently have visiting nurse or other home services: No Unable to assess alcohol history related to: Unable to respond Alcohol intake: former Comment: Sitter Patient Tobacco Use Status: Tobacco use Unknown Tobacco use type: Cigarette Cigarette Packs Per Day: 0.5 Cigarettes Per Day: 6 Years Smoked: 33 Smoked in Last 30 Days: Yes e-Cigarette/Vaping Use: Currently Using Second Hand Smoke Exposure: Yes Use of substances other than those prescribed or required for medical reasons: No Substance Use Type: Marijuana Advance Directives: No Advance Directives Information Provided: Yes service: No Physical Exam ED Vital Signs: Vital Signs - 24 hr 07/22/25 12:42 Temperature 98.6 F Pulse Rate 86 Respiratory Rate 14 Blood Pressure 130/66 Pulse Oximetry 100 Oxygen Delivery Method Room Air BMI result Body Mass Index 25.4 Vital signs have been reviewed and appear to be correct. Blood pressure normal. Heart rate normal. Respiratory rate normal. Temperature normal. Oxygen saturation normal. Const General: cooperative and no acute distress Orientation/consciousness: oriented to person, oriented to place, oriented to time and patient oriented x3 Limitations: no limitations HENMT Head: Yes normocephalic and Yes atraumatic Ears: external ears normal General nose exam: Normal external nose present Face and sinus: Yes face symmetric Mouth: oropharynx normal and moist mucous membranes Throat: Yes uvula midline Eyes Pupils: Equal, round and reactive pupils present Neck Neck: Yes normal visual inspection and Yes supple Resp Effort & Inspection: normal respiratory effort and able to speak in complete sentences Auscultation: clear to auscultation bilaterally Cardio Rate: regular rate Rhythm: regular rhythm Heart sounds: S1 normal heart sound present and S2 normal heart sound present GI Palpation (GI): Soft to palpation and nontender Auscultation: normoactive bowel sounds General: Yes no CVA tenderness Back/Spine/Pelvis Back: no CVA tenderness Skin General skin exam: elasticity normal and turgor normal Neuro General: oriented to person, oriented to place, oriented to time, patient oriented x3, moves all extremities, no focal motor deficits and CN's II-XI intact bilaterally Cranial nerves: Yes Equal, round and reactive pupils present Cognition (Neuro): normal cognition Extrem Other: General: Yes full ROM, Yes no pedal edema and Yes no calf tenderness Right lower extremity: lower leg (BKA, open wound at amputation site, see photo) Psych Mental Status: mental status grossly normal Affect: normal affect Thought process: Normal thought process present Medications Administered Generic Name Dose Route Start Last Admin Trade Name Freq PRN Reason Stop Dose Admin Cefepime HCl 2 gm in 50 mls @ 100 mls/hr 07/22/25 14:13 07/22/25 14:28 Maxipime IV 07/22/25 14:42 100 mls/hr ONCE ONE Administration Medical Decision Making Medical Decision Making [facility] Narrative: Patient is a 45-year-old male with history of ESRD on hemodialysis, anemia, right BKA, paroxysmal a flutter, cardiomyopathy he, COPD, seizures, polysubstance abuse, DM, HTN sent to the ED from dialysis due to elevated white blood cell count. On exam patient is awake, A+Ox3, VS WNL, afebrile, normal neurological exam without focal deficits, physical exam findings as above. Given reported symptoms and physical exam findings, initial differential includes but is not limited to pressure ulcer, cellulitis, osteomyelitis. Labs notable for elevated CRP, creatinine up from baseline. X-ray right lower leg concerning for osteo. My interpretation is in agreement with the radiologist's interpretation. IV Vanco and cefepime ordered. Results discussed with patient who is adamantly refusing admission for IV antibiotics. Case discussed with attending, Dr. Pereyra, who recommends treating with outpatient abx and referring to wound clinic. Patient is agreeable to this. He is also willing to stay in the ED for first dose of antibiotics IV. Return precautions discussed. Referral to wound center ordered. Patient verbalized understanding of and agreement with plan. The patient has decided to leave against medical advice because . They have normal mental status and adequate capacity to make medical decisions. The patient refuses inpatient admission and wants to be discharged. The risks have been explained to the patient, including worsening infection, sepsis, loss of limb, worsening illness, chronic pain, permanent disability and . The benefits of ED evaluation have also been explained, including the availability and proximity of nurses, physicians, monitoring, diagnostic testing, treatment and pain control. The patient was able to understand and state the risks and benefits of ED evaluation. This was witnessed by nurse Marge RN and me. They had the opportunity to ask questions about their medical condition. The patient was treated to the extent that they would allow and knows that they may return for care at any time. Differential Diagnosis Differential Diagnoses: The differential diagnosis associated with the presentation includes as per [facility] Admission/Observation Consideration of admission/observation: Escalation of care including admission/observation considered Admission offered, patient declined. Lab Data [facility] Lab Attestation statement: I reviewed the patient's lab results. as per [facility] 07/22/25 13:45 07/22/25 13:45 Labs: Lab Results 07/22/25 Range/Units 13:45 WBC 8.9 (4.8-10.8) X10*3/uL RBC 3.78 L (4.60-5.80) X10*6/uL Hgb 11.1 L (14.0-18.0) g/dl Hct 34.2 L (42.0-52.0) % MCV 90.5 (80.0-98.0) fL MCH 29.4 (27.0-33.0) pg MCHC 32.5 (31.0-36.0) g/dl RDW 13.4 (11.0-16.0) % Plt Count 255 (160-400) X10*3/uL MPV 10.5 (9.4-12.4) fL Immature Gran % (Auto) 0.3 (0.0-0.4) % Neut % (Auto) 74.4 H (45-73) % Lymph % (Auto) 16.4 L (20-40) % Adams % (Auto) 6.6 (2-11) % Eos % (Auto) 2.0 (0-4) % Baso % (Auto) 0.3 (0-2) % Lymph # (Auto) 1.5 (1.2-4.9) X10*3/uL Adams # (Auto) 0.6 (0.1-1.2) X10*3/uL Eos # (Auto) 0.2 (0.0-0.4) X10*3/uL Baso # (Auto) 0.0 (0.0-0.2) X10*3/uL Abs Immat Gran (auto) 0.03 (0.00-0.03) X10*3/uL Absolute Neuts (auto) 6.6 (2.0-8.3) x10*3/uL Absolute Nucleated RBC 0.000 (0.0-0.012) X10*3/uL Nucleated RBC % (auto) 0.0 (0.0-0.2) /100WBC Sodium 133 L (135-145) mmol/L Potassium 3.7 (3.3-5.1) mmol/L Chloride 96 (96-108) mmol/L Carbon Dioxide 29 (22-29) mmol/L Anion Gap 12 (12-20) BUN 26 H (9-16) mg/dL Creatinine 4.41 H* (0.5-1.4) mg/dL Estim Creat Clear Calc 20.7 Estimated GFR 14 Random Glucose 203 H (60-115) mg/dL Calcium 8.3 L (8.4-10.2) mg/dL Total Bilirubin 0.3 (0.0-1.0) mg/dL AST 28 (5-37) U/L ALT < 6 (0-40) U/L Alkaline Phosphatase 79 (39-117) U/L C-Reactive Protein 12.29 H (< or = 0.50) mg/dL Total Protein 8.3 H (6.5-8.0) g/dL Albumin 3.0 L (3.5-5.0) g/dL Independent Interpretation I performed an independent interpretation of an: Plain X-Ray Interpretation: Tib/fib x-ray concerning for osteo of distal tibia. Radiology Impression Discussion of test interpretation with radiology: I have reviewed the radiologist's reading. Radiologist Impression: XR/XR tibia fibula RT 2V IMPRESSION: There is concern for osteomyelitis in the distal end of the remaining femur after amputation. Addendum: Abnormality concerning for osteomyelitis involves the distal end of the amputated tibia, not the femur. External Record Review External record reviewed: Inpatient record, Office record and Outpatient record Prescription Management I considered prescription management with: Antibiotic Discharge Plan Discharge Clinical Impression: Open wound of right lower leg, Leg osteomyelitis, right Patient Disposition: Left Against Medical Advice Instructions: Osteomyelitis (ED), Acute Wounds (DC) Additional Instructions: You were evaluated in the emergency department today for a wound to your right lower leg. Your x-ray showed evidence of the infection spreading to your bone (tibia). You declined inpatient admission to the hospital for IV antibiotics. You are being treated with 2 courses of oral antibiotics. You are also being referred to the wound clinic for ongoing care. Take all medications as prescribed. Follow up with your primary care provider this week. If you change your mind and would like to be admitted you can return to the emergency department at any time. Return to the emergency department if you develop thick yellow drainage from your wound, redness warmth or swelling spreading up your leg, fever 100.4? F or greater or any other new or concerning symptoms. Prescriptions: New cephalexin 500 mg capsule 500 mg PO Q8H 10 Days Qty: 30 0RF doxycycline hyclate 100 mg capsule 100 mg PO BID Qty: 20 0RF No Action buprenorphine-naloxone [Suboxone] 8-2 mg film 1 film sublingual TID 5 Days Qty: 15 0RF buprenorphine-naloxone [Suboxone] 8-2 mg film 1 film sublingual TID aspirin 81 mg tablet 81 mg PO DAILY Qty: 30 0RF multivitamin Tablet 1 tab PO DAILY Qty: 30 0RF omeprazole 20 mg capsule,delayed release(DR/EC) 20 mg PO DAILY@0630 Qty: 30 0RF (DME) pen needle, diabetic 32 gauge x 1/4 needle Qty: 100 0RF Rx Instructions: Use four times a day or as directed. (DME) Dakins solution 1/4 strength 500ml See Rx Instructions .Route .MEDSUPPLY Qty: 1 0RF Rx Instructions: As directed insulin lispro [Humalog KwikPen Insulin] 100 unit/mL insulin pen See Protocol subcut TIDAC Protocol: Insulin Correction Scale Less than or equal to 110 ---- Give (units): 0 111 to 150 Give (units): 0 151 to 200 Give (units): 3 201 to 250 Give (units): 5 251 to 300 Give (units): 8 301 to 350 Give (units): 10 Greater than 350 Give (units): 15 Call MD if Blood Glucose > : 350 melatonin 5 mg tablet 5 mg PO BEDTIME PRN (Reason: insomnia) (DME) FreeStyle Lite Strips Strip Qty: 100 0RF Rx Instructions: Test four times a day or as directed. (DME) blood-glucose meter Kit Qty: 1 0RF Rx Instructions: As Directed (DME) lancets [FreeStyle Lancets] 28 gauge misc Qty: 100 0RF Rx Instructions: Test four times a day or as directed. polyethylene glycol 3350 17 gram Powder In Packet 17 g PO DAILY PRN (Reason: Constipation) Qty: 120 0RF insulin glargine 100 unit/mL (3 mL) insulin pen 15 unit subcut BEDTIME oxycodone 10 mg tablet 10 mg PO Q8H PRN (Reason: pain (scale score 7-10)) Qty: 12 0RF Rx Instructions: Partial Fill upon patient request. Referrals: [facility] Wound [facility] Management [Provider Group] Referral Note: Patient declined inpatient admission Clinical Impression: Open wound of right lower leg; Leg osteomyelitis, right Stand Alone Forms: Against Medical Advice Print Language: Hebrew
[2025-07-22 13:52] LABS: MANUAL DIFF FLAG NO
[2025-07-22 13:56] LABS: Hematocrit 34.2 % (42.0-52.0); Hemoglobin 11.1 g/dl (14.0-18.0); Imm Gran Abs Auto 0.03 X10*3/uL (0.00-0.03); Imm Gran Pct Auto 0.3 % (0.0-0.4); Lymphocytes Absolute Auto 1.5 X10*3/uL (1.2-4.9); Mean Corpuscular HGB Conc 32.5 g/dl (31.0-36.0); Mean Corpuscular Hemoglobin 29.4 pg (27.0-33.0); Mean Corpuscular Volume 90.5 fL (80.0-98.0); NRBC Abs Auto 0.000 X10*3/uL (0.0-0.012); NRBC Pct Auto 0.0 /100WBC (0.0-0.2); Platelet Count 255 X10*3/uL (160-400); Red Blood Count 3.78 X10*6/uL (4.60-5.80); White Blood Count 8.9 X10*3/uL (4.8-10.8)
[2025-07-22 14:00] VITALS: BP 146/86; PULSE 91; RESP 16; O2SAT 99
--- NOTE | 2025-07-22 14:00 | PC.NURSE ---
Addendum entered by Faith Preston RN 07/22/25 14:02: Patient is a 44-year-old male with a past medical history significant for ESRD on hemodialysis Friday, right BKA, left TMA, chronic nonhealing wounds, diabetes, hypotension, opiate use disorder on Suboxone and multiple others who presents from dialysis with an elevated WBC's and wound noted to the end of his right stump. Alert and oriented. Denies any complaints at this time. Respirations even and non-labored. Abdomen soft, non-tender with positive bowel sounds. Dialysis cath noted to right chest although patient states they are going to put an AVF in his right arm. RIght stump with an [place] sized open wound at the bottom of his stump. Does not appear infected at this time. Original Note: Medical History ESRD needing dialysis ESRD on dialysis Anemia in chronic kidney disease (CKD) ESRD (end stage renal disease) on dialysis Open wound Opioid use disorder, severe, dependence Bacteremia Volume overload Paroxysmal atrial flutter Cardiomyopathy Pericardial effusion Atrial flutter Need for acute hemodialysis Leukocytosis Anemia Anemia Transfusion history Atrial flutter, paroxysmal COPD (chronic obstructive pulmonary disease) Constipation Callus of foot Seizure Polysubstance abuse CKD (chronic kidney disease) stage 3, GFR 30-59 ml/min Foot osteomyelitis, left Amputation of toe of right foot Diabetic ulcer of right foot Hyperglycemia due to type 2 diabetes mellitus Renal failure Sleep apnea Diabetes HTN (hypertension)
[2025-07-22 14:11] LABS: Alanine Aminotransferase < 6 U/L (0-40); Albumin Level 3.0 g/dL (3.5-5.0); Alkaline Phosphatase 79 U/L (39-117); Anion Gap 12 (12-20); Aspartate Amino Transferase 28 U/L (5-37); Blood Urea Nitrogen 26 mg/dL (9-16); Calcium 8.3 mg/dL (8.4-10.2); Carbon Dioxide 29 mmol/L (22-29); Chloride 96 mmol/L (96-108); Creatinine Clr Calc Pharmacy 20.7; Estimated Glomerular Filt Rate 14; Potassium 3.7 mmol/L (3.3-5.1); Sodium 133 mmol/L (135-145); Total Protein 8.3 g/dL (6.5-8.0)
[2025-07-22] MEDS: cefEPime HCl/D5W 2 GM/50 ML PIGGYBACK IV (14:28)
[2025-07-22] MEDS: vancomycin/NS 2,000 MG/500 ML PLAST..BAG 250 MG IV (14:45)
--- NOTE | 2025-07-22 17:50 | PC.NURSE ---
Ambulance requested for transition home
--- NOTE | 2025-07-22 17:52 | PC.NURSE ---
Dressing applied to wound at the end of right stump. Patient tolerated well.
[2025-07-22 19:03] VITALS: BP 146/86; PULSE 91; RESP 16; TEMP -17.7; TEMP 0; O2SAT 99
== END 2025-07-22 19:03 | disposition left against medical advice (07) ==
PROVIDERS: Registered Nurse Emergency; Emergency Provider Emergency Medicine
DX: S81.801A Unspecified open wound, right lower leg, initial encounter (principal); M86.8X6 Other osteomyelitis, lower leg; M79.605 Pain in left leg; E11.9 Type 2 diabetes mellitus without complications; I10 Essential (primary) hypertension; X58.XXXA Exposure to other specified factors, initial encounter; Y93.9 Activity, unspecified; Y92.9 Unspecified place or not applicable; Y99.8 Other external cause status; Z79.4 Long term (current) use of insulin; Z79.899 Other long term (current) drug therapy
CPT/HCPCS: 36415; 73590; 80053; 85025; 85652; 86140; 87040; 96365; 96367; 99284; J0692; J3373

== ENCOUNTER → 2025-07-22 13:01 | Outpatient (BNV) | payer MEDICAID, SELFPAY | PROVIDERS: Emergency Provider Emergency Medicine; Visit Provider Radiology Diagnostic Radiology | DX: L97.519 Non-pressure chronic ulcer of other part of right foot with unspecified severity (principal) | CPT/HCPCS: 73590 ==

== ENCOUNTER 2025-08-01 16:24 | Outpatient (AMB) | payer MEDICAID, SELFPAY ==
--- NOTE | 2025-08-01 16:47 | A.OFFVIS_ITS ---
Intake Visit Reasons: MAT visit telehealth monica James Media Services Director Required: Yes Media Services Director Services: Media Services Director Present Media Services Director Name: Salvador Merrill POLYSOMNOGRAPHY TECHNOLOGIST Allergies No Known Allergies (No Known Allergies*) Allergy (Verified 08/01/25 16:47) HPI HPI MAT visit telehealth monica James: Details: History of Present Illness The patient is a 45-year-old male presenting with a follow-up for medication management related to Opioid Use Disorder. The patient reported leg problems leading to an inability to walk but did not detail the onset of these symptoms in the conversation. He is unable to ambulate due to the leg issue. During the discussion, the patient requested a daily dosage of four Suboxones, which was addressed in the context of clinical guidelines indicating a plateau at two to three strips daily. The patient comprehended this and agreed to follow the recommended plan. The patient reported feeling well, denying any symptoms related to depression or constipation. This interaction occurred during a televisit because of his inability to walk, necessitating remote consultation. Review of Systems - Musculoskeletal: Reports inability to walk due to leg problems. - Psychiatric: Denies symptoms of depression. - Gastrointestinal: Denies constipation. Physical Exam Results Plan Patient was informed and verbally consented to the use of an ambient scribe for clinic note documentation during this visit. 1. Opioid use, unspecified, uncomplicated F11.90 The patient is managing Opioid Use Disorder with Suboxone. I highlighted the effectiveness of Suboxone 8 mg/2 mg three times daily given the clinical effectiveness plateau, and the patient agreed to this plan. A one-month supply with two refills was prescribed to ensure consistent treatment. The plan includes a follow-up in three months to evaluate and adjust therapy as needed. 2. Inability To Walk The patient's inability to walk is due to leg problems, though specific details are unspecified. No immediate management plan was discussed for the leg issue. This condition will be observed closely during follow-up, ensuring any necessary intervention is taken as further details emerge. Discussion Notes During the televisit, we discussed the patient's Opioid Use Disorder and the management of his symptoms with Suboxone. I informed him about the clinical effectiveness plateau of Suboxone at two to three strips daily and advised on a plan of 8 mg/2 mg three times per day. The patient understood the rationale behind this dosage, noting higher doses do not result in increased pain relief. We discussed the continuation of this treatment plan with a one-month supply and two refills. It was determined that a follow-up in three months would be optimal to review the patient's progress. Medical Decision Making My clinical decision-making focused on the patient's management of Opioid Use Disorder using Suboxone. Due consideration was given to the effective plateau at two to three strips daily. After discussing the benefits and the plateau of the substance's effectiveness, I prescribed a structured regimen of Suboxone 8 mg/2 mg three times per day. The importance of not exceeding this dosage to avoid unneeded drug exposure and side effects was reinforced. The goal was to sustain the patient's current progress and manage Opioid Use Disorder effectively. As the patient is also unable to ambulate presently due to unspecified leg issues, future plans include evaluating mobility in follow-up assessments. Patient Instructions - Take Suboxone 8 mg/2 mg three times a day as prescribed. - Make sure to follow up in three months for an in-person visit. - Report any new symptoms or changes in your condition immediately. - Keep track of your medication supply and adhere to the prescribed dosage. [facility] Medical History (Updated 08/01/25 @ 16:55 by Emilia North MD) Opioid use disorder, severe, dependence ESRD needing dialysis ESRD on dialysis Anemia in chronic kidney disease (CKD) ESRD (end stage renal disease) on dialysis Open wound Bacteremia Volume overload Paroxysmal atrial flutter Cardiomyopathy Pericardial effusion Atrial flutter Need for acute hemodialysis Leukocytosis Anemia Anemia Transfusion history Atrial flutter, paroxysmal COPD (chronic obstructive pulmonary disease) Constipation Callus of foot Seizure Polysubstance abuse CKD (chronic kidney disease) stage 3, GFR 30-59 ml/min Foot osteomyelitis, left Amputation of toe of right foot Diabetic ulcer of right foot Hyperglycemia due to type 2 diabetes mellitus Renal failure Sleep apnea Diabetes HTN (hypertension) Surgical History Hx of right BKA History of surgical procedure (~04/24/23) Social History Household Members: Family Household Members Other:: mother Housing: Apartment Do you presently have visiting nurse or other home services: No Alcohol intake: former Comment: Sitter Patient Tobacco Use Status: Tobacco use Unknown Tobacco use type: Cigarette Cigarette Packs Per Day: 0.5 Cigarettes Per Day: 6 Years Smoked: 33 e-Cigarette/Vaping Use: Currently Using Second Hand Smoke Exposure: Yes Substance Use Type: Marijuana service: No Telehealth Telehealth Telehealth Platform: Telephone Location of provider rendering services: practice address Location of patient: address on file Patient Identification confirmed using: Name, : Yes Telehealth method: voice only Patient verbally consented to treatment: Yes Patient verbally consented to billing insurance company: Yes Patient informed of any privacy concerns related to visit: Yes Assessment & Plan Assessment & Plan (1) Opioid use disorder, severe, dependence: Code(s): F11.20 - Opioid dependence, uncomplicated Category: Medical Plan per note Medications: New buprenorphine-naloxone 8-2 mg (Suboxone) 1 film sublingual TID 90 ea 2RF 30 days Coding Level of Care Code Tele Est Pt Level 3 (26667) Diagnoses Opioid use disorder, severe, dependence F11.20
--- OUTSIDE RECORDS SUMMARY | 2025-08-01 18:21 | XMS_ITS | Encounter Summary ---
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 I have eric sing 08/18/[address] you li [...] as of this encounter Plan of Treatment Upcoming Encounters Date Type Department Care Team (Late st Contact Info) Description 08/02/2025 2:15 PM EDT Office Visit [facility] [address] [place] [address] Kadie Guzmná MD [address] [place] [address] documented as of this encounter Visit Diagnoses Diagnosis Type 2 diabetes mellitus with stage 3 chronic kidney disease, with long-term current use of insulin, unspecified whether stage 3a or 3b CKD (HCC) documented in this encounter
--- OUTSIDE RECORDS SUMMARY | 2025-08-01 18:21 | XMS_ITS | Encounter Summary ---
Author Organization [employer] Address [address] [facility] [address] [place] [address] Care Team Providers Care Pharmacist'S Aide Name Role Phone Unavailable Primary Care Provider Unavailabl e Reason for Visit * Reason Comments Med Refill Encounter Details Date Type Department Care Team (Late st Contact Info) Description 01/26/2025 Refill [facility] [address] [place] [address] Araseli Rucker, ANP [address] [place] [address] Other insomnia Social History Tobacco Use Types [...] Description 08/02/2025 2:15 PM EDT Office Visit [facility] [address] [place] [address] Kadie Guzmán MD [address] [place] [address] documented as of this encounter Visit Diagnoses Diagnosis Other insomnia documented in this encounter
--- OUTSIDE RECORDS SUMMARY | 2025-08-01 18:21 | XMS_ITS | Clinical Summary ---
Author Organization [employer] Address [address] [facility] [address] [place] [address] Care Team Providers Care Generating Plant Superintendent Name Role Phone Unavailable Primary Care Provider [...] whether stage 3a or 3b CKD (HCC) USE FOUR TIMES DAILY WITH INSULIN DIRECTED 100 each 3 4 Active Alcohol Swabs (Alcohol Prep) 70 % padsIndications:T ype 2 diabetes mellitus with stage 3 chronic kidney disease, with long-term current use of insulin, unspecified whether stage 3a or 3b CKD (HCC) USE THREE TIMES DAILY DIRECTED 100 each 11 4 Active FREESTYLE LITE test stripIndications: Type 2 diabetes mellitus with stage 3 chronic kidney disease, with long-term current use of insulin, unspecified whether stage 3a or 3b CKD ([facility]) TEST BLOOD SUGAR THREE TIMES DAILY 100 strip 11 4 Active TRUEplus Lancets 33G miscIndications:D iabetes mellitus, stable ([facility]) TEST BLOOD SUGAR THREE TIMES [...] Active Problems Problem Noted Date Diagnosed Date Acidosis, metabolic, with respiratory acidosis 0 08/01/2025 Acidosis 08/01/2025 Acute CVA (cerebrovascular accident) ([facility]) 0 08/01/2025 Acute hypokalemia 08/01/2025 Acute hypoxemic respiratory failure ([facility]) Amputation of toe of right foot 08/01/2025 Anasarca 08/01/2025 Anemia in chronic kidney disease (CKD) Anemia 08/01/2025 Bacteremia 08/01/2025 Cardiomyopathy 08/01/2025 Callus of foot 08/01/2025 Cellulitis 08/01/2025 Empyema ([facility]) 08/01/2025 Cocaine intoxication ([facility]) 08/01/2025 Confusion 08/01/2025 Constipation 08/01/2025 COPD exacerbation ([facility]) 08/01/2025 Decubitus ulcer 08/01/2025 Dehydration 08/01/2025 Diabetic skin ulcer 08/01/2025 Diabetic ulcer of right foot 08/01/2025 Diabetic wet gangrene of the foot 08/01/2025 Elevated troponin 08/01/2025 End stage renal failure on dialysis ([facility]) Foot osteomyelitis, left ([facility]) 08/01/2025 History of endocarditis 08/01/2025 Hyperglycemia 08/01/2025 Hyperphosphatemia 08/01/2025 Hypocalcemia 08/01/2025 Leukocytosis 08/01/2025 MRSA bacteremia 08/01/2025 Myoclonic disorder 08/01/2025 Necrotic eschar ([facility]) 08/01/2025 Need for acute hemodialysis 08/01/2025 Open wound 08/01/2025 Opiate withdrawal ([facility]) 08/01/2025 Panic attack 08/01/2025 Pericardial effusion 08/01/2025 Pleural effusion, bilateral 08/01/2025 Pseudohyponatremia 08/01/2025 Removal of staple 08/01/2025 Sepsis ([facility]) 08/01/2025 Seizure ([facility]) 08/01/2025 Syncope 08/01/2025 Toxic metabolic encephalopathy 08/01/2025 Volume overload 08/01/2025 Paroxysmal atrial flutter ([facility]) 08/01/2025 Hyperglycemia due to type 2 diabetes mellitus HTN (hypertension) 08/01/2025 Acute renal failure 08/01/2025 Chronic kidney failure 08/01/2025 CKD (chronic kidney disease) stage 3, GFR 30-59 ml/min ([facility]) 08/01/2025 Type 2 diabetes mellitus 08/01/2025 Opioid use disorder, severe, dependence ([facility] ) 08/01/2025 Atrial flutter ([facility]) 10/05/2024 Overview (10/05/2024): -dx in [facility] 09/2024 Primary insomnia 07/14/2023 Assessment & Plan (07/14/2023 10:26 PM EDT): Start trazodone Counseled re tight control of HTN, DM and avoid recreational drug use. FU with PCP Chronic renal disease, stage IV ([facility]) 2022 Overview (06/23/2023): -With significant proteinuria due to [...] home is Coronary artery disease invo lving [place] coronary artery of [place] heart without angina pectoris 06/23/2023 Osteomyelitis 06/23/2023 Tobacco dependence 06/23/2023 Overview (06/23/2023): -motivational interviewing done PAD (peripheral artery disease) 06/23/2023 Assessment & Plan (07/14/2023 10:32 PM EDT): Sec to DM, HTN, smoking, cocaine use. 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 Has fu appt next week, urged to attend to be evaluated for leg prothesis. 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 Will rx transport wheelchair while he gets fitted with right leg prosthesis. Continue gabapentin for pain + tight control of underlying conditions as above Tobacco use disorder 06/23/2023 Overview (08/01/2025): -motivational interviewing done Uncomplicated opioid dependence ([facility]) 2022 Polysubstance abuse 06/04/2023 Assessment & Plan (07/14/2023 [...] with his mother) . Right BKA infection ([facility]) 06/04/2023 Overview (06/23/2023): Right foot partal amputation 04/18/2023 due to right foot gangreen with osteomyelitis. Dischargted 05/01/23 with ertapenem via PICC line for osteomyelitis. Returned to [facility] with AMS and underwent right BKA 05/2023 Assessment & Plan (07/14/2023 10:33 PM EDT): Right BKA stump Is healing properly, urged to fu with vascular surgery. Will need PT /OT eval for right leg prosthesis fitting I will rx a transport wheelchair for mobility Altered mental status 06/04/2023 Overview (06/04/2023): Admitted 05/04/23 to [facility] for encephalopathy thought to be cocaine related. he was discharged against medical advice. Seen in [facility] 05/09/23 with repot of myoclonic spasms. Urine drug screen positive for opiates, fentanyl and cocaine.seen 05/11/23 in [facility] for continued abnormal movents and discharged home. Admitted to [facility] 05/12/23-05/14/23 for possible seizure activity. He [...] 4w. Gastroesophageal reflux disease 05/04/2012 Morbid obesity ([facility]) 05/04/2012 Obstructive sleep apnea syndrome 05/04/2012 Overview [...] 03/30/2021 06/23/2023 Stage 3 chronic kidney disease ([facility]) 03/30/2021 06/23/2023 Encounters Date Type Department Care Team Description 08/01/2025 Telephone [facility] [address] [place] [address] Ivet Zhang MA chart prep 07/29/2025 Telephone [facility] [address] [place], [place] [phone] Kyle Mitchell MD 07/27/2025 Refill [facility] [address] [place] [address] Cristina Stover MD Type 2 diabetes mellitus with stage 3 chronic kidney disease, with long-term current use of insulin, unspecified whether stage 3a or 3b CKD ([facility]); Diabetes mellitus, stable ([facility]) 07/25/2025 Refill [facility] [address] [place] [address] Cristina Stover MD Type 2 diabetes mellitus with stage 3 chronic kidney disease, with long-term current use of insulin, unspecified whether stage 3a or 3b CKD ([facility]) 07/22/2025 Orders Only [facility] External Provider, [facility] 06/13/2025 Refill [facility] [address] [place] [address] Araseli Rucker ANP Other insomnia 05/09/2025 Telephone [facility] [address] [place] [address] Yaajira Sykes RN NEEDS PROVIDER APPT 05/09/2025 Orders Only GENERIC EXTERNAL DATA DEPARTMENT Provider, Generic External Data from Last 3 Months Immunizations Immunization Administration Dates Next Due Hep B, adult 01/10/2025,,11/12/2018,07/25,12/28/2014 IPV 05/10/1984, 9,1978,08/21 Influenza injectable quadriv alent IIV4 with preservative 07/25/2016 Influenza injectable quadriv alent preservative free 08/05/2019,11/12/2018,07/26/2015,12/28 Influenza, IIV3, injectable 10/15/2024 Influenza, Injectable, MDCK, preservative free 11/16/2015 Influenza, Split (incl. kei fied surface antigen) 07/29/2012 MMR 09/17/1990 Measles 08/14/1981 Mumps 05/10/1984 Pneumococcal Conjugate PCV 20 10/15/2024 Pneumococcal Polysaccharide PPSV23 11/16/2015 Tdap 12/28/2014 Social [...] Mass Index - - Plan of Treatment Upcoming Encounters Date Type Department Care Team (Late st Contact Info) Description 08/02/2025 2:15 PM EDT Office Visit [facility] [address] [place] [address] Kadie Guzmán MD [address] [place] [address] Health Maintenance Due Date Last Done Comments CT Colonography 1978 Colonoscopy 1978 Colorectal Cancer Screening 1978 FIT DNA/Cologuard 1978 FIT 1978 FOBT 1978 Lipid Panel 1978 Sigmoidoscopy 1978 Disability Screening 1978 Diabetes: Foot Exam 1988 Eye Exam 1988 Alcohol/Substance Use Screening 1990 Family Planning (PISQ) 1993 Diabetes: Urine Protein Screening 12/13/2020 12/13/2019, 11/17/2019, 10/14/2019 Diabetes: Hemoglobin A1C 10/13/2023 07/14/2023, 11/04 SDOH Screening 06/10/2024 06/10/2023 Depression Screening 07/14/2024 07/14/2023, 07/14/20 23 DTaP/Tdap/Td Vaccines (2 - Td or Tdap) 12/28/2024 12/28/2014 COVID-19 Vaccine (1 - season) 2025 Influenza Vaccine (#1) 2025 , 08/05/2019, 11/12/2018, Additional history exists Tobacco Screening 09/16/2025 09/16/2024 Zoster Vaccines (1 of 2) 2028 RSV Patients and Patients Aged 60 years or older (1 - 1-dose 75+ series) 2053 IPV Vaccines Completed 05/10/1984, 06/04, 1978, Additional history exists HIV Screening Completed 06/22/2019 Hepatitis C Screening Completed 06/22/2019 Pneumococcal Vaccine: Pediatrics (0 to 5 Years) and At-Risk Patients (6 to 49) Years Completed 10/15/2024, 11/16/2015 Hepatitis B Vaccines Completed 01/10/2025, 12/13/2024, 11/12/2018, Additional history exists HIB Vaccines Aged Out No longer eligi [...] Procedure Name Priority Date/Time Associated Diagnosis Comments SED RATE BY MODIFIED WESTERGREN Routine 07/22/2025 1:45 PM EDT C-REACTIVE PROTEIN Routine 07/22/2025 1: 45 PM EDT COMPREHENSIVE METABOLIC PANEL Routine 07/22/2025 1:45 PM EDT CBC WITH AUTO DIFFERENTIAL Routine 07/22/2025 1:45 PM EDT BLOOD CULTURE (FIRST) Routine 07/22/2025 1:45 PM EDT XR TIBIA FIBULA 2 VIEWS RIGHT Routine 07/22/2025 1:15 PM EDT BLOOD CULTURE (SECOND) Routine 12:56 PM EDT XR CHEST 1 VIEW Routine 05/09/2025 8:40 [...] disease, with long-term current use of insulin ([facility]) ZZZ HISTORICAL MICROALBUMIN, RANDOM Routine 12/13/2019 1:40 PM EST HM HEPATITIS C ANTIBODY Routine 06/22/2019 HM HIV 1/2 ANTIGEN AND ANTIBODY Routine 06/22/2019 from Last 3 Months or Most Recently Relevant to Health Maintenance Results * Blood Culture (First) (07/22/2025 1:45 PM EDT) Blood Venous blood specimen / Unknown 07/22/2025 1:45 PM EDT 07/22/2025 1:50 PM EDT Comment:Blood Narrative [facility] - 07/27/2025 3:50 PM EDT Blood Culture (First) No growth after 5 days. Specimen Source: Blood us Generic External Data Provider LAB MICROBIOLOGY - GENERAL ORDERABLES Final Result [facility] [address] [place] [phone] * (ABNORMAL) CBC auto differential (07/22/2025 1:45 PM EDT) Only the most recent of2 resultswithin the time period is included. White Blood Count 8.9 4.8 - 10.8 X10*3/uL [facility] Red Blood Count 3.78(L) 4.60 - 5.80 X10*6/uL [facility] Hemoglobin 11.1(L) 14.0 - 18.0 g/dl [facility] Hematocrit 34.2(L) 42.0 - 52.0 % [facility] Mean Corpuscular Volume 90.5 80.0 - 98.0 fL [facility] Mean Corpuscular Hemoglobin 29.4 27.0 - 33.0 pg [facility] Mean Corpuscular HGB Conc 32.5 31.0 - 36.0 g/dl [facility] Red Cell Distribution Width 13.4 11.0 - 16.0 % [facility] Platelet Count 255 160 - 400 X10*3/uL [facility] Mean Platelet Volume 10.5 9.4 - 12.4 fL [facility] Neutrophils Percent Auto 74.4(H) 45 - 73 % [facility] Imm Gran Pct Auto 0.3 0.0 - 0.4 % [facility] Lymphocytes Percent Auto 16.4(L) 20 - 40 % [facility] Monocytes Percent Auto 6.6 2 - 11 % [facility] Eosinophils Percent Auto 2.0 0 - 4 % [facility] Basophils Percent Auto 0.3 0 - 2 % [facility] NRBC Pct Auto 0.0 0.0 - 0.2 /100WBC [facility] Neutrophils Absolute Auto 6.6 2.0 - 8.3 x10*3/uL [facility] Imm Gran Abs Auto 0.03 0.00 - 0.03 X10*3/uL [facility] Lymphocytes Absolute Auto 1.5 1.2 - 4.9 X10*3/uL [facility] Monocytes Absolute Auto 0.6 0.1 - 1.2 X10*3/uL [facility] Eosinophils Absolute Auto 0.2 0.0 - 0.4 X10*3/uL [facility] Basophils Absolute Auto 0.0 0.0 - 0.2 X10*3/uL [facility] NRBC Abs Auto 0.000 0.0 - 0.012 X10*3/uL [facility] 07/22/2025 1:45 PM EDT 07/22/2025 1:50 PM EDT us Generic External Data Provider LAB BLOOD ORDERAB LES Final Result [facility] [address] [place] [phone] * (ABNORMAL) Sed Rate by Modified Luisren (07/22/2025 1:45 PM EDT) Erythrocyte Sedimentation Rate 88(H) 0 - 15 MM/HR [facility] Comment:Patients with polycy themia and many hemoglobin abnormalitiesmay have depressed sed rates whereas patients with anemiamay have elevated sed rates. 07/22/2025 1:45 PM EDT 07/22/2025 1:50 PM EDT us Generic External Data Provider LAB BLOOD ORDERAB LES Final Result Performing Organization Address City/[facility]/ZIP Co de Phone Number [facility] [address] [place] [phone] * (ABNORMAL) C-reactive Protein (07/22/2025 1:45 PM EDT) C Reactive Protein 12.29(H) < or = 0.50 mg/dL [facility] 07/22/2025 1:45 PM EDT 07/22/2025 1:50 PM EDT Generic External Data Provider LAB BLOOD ORDERAB LES Final Result Performing Organization Address [facility] Co de Phone Number [facility] [address] [place] [phone] * (ABNORMAL) Comprehensive Metabolic Panel (07/22/2025 1:45 PM EDT) Only the most recent of2 resultswithin the time period is included. Sodium 133(L) 135 - 145 mmol/L [facility] Potassium 3.7 3.3 - 5.1 mmol/L [facility] Chloride 96 96 - 108 mmol/L [facility] Carbon Dioxide 29 22 - 29 mmol/L [facility] Anion Gap 12 12 - 20 [facility] Urea Nitrogen (BUN) 26(H) 9 - 16 mg/dL [facility] Creatinine, Serum 4.41(HH) 0.5 - 1.4 mg/dL [facility] Comment:Critical value for C REAT: Results called to and read eduardo: KATRINA Person calling: EVELIOMichael Date: 07/22/25 Time: 1410 Creatinine Clr Calc Pharmacy 20.7 [facility] Comment:eGFR (calculated fro m the MDRD study equation) and eCrCl(calculated from the Cockcroft-Gault equation) are based ondifferent parameters and may not yield comparable results.If eCrCl result is absurd, please check patient'sheight/weight. Estimated Glomerular Filt Rate 14 [facility] Comment:Chronic Kidney Disea se: Estimated GFR < 60 mL/min/1.96a7Htrsnz Kidney Disease: Estimated GFR < 15 mL/min/1.73m2 Glucose 203(H) 60 - 115 mg/dL [facility] Calcium 8.3(L) 8.4 - 10.2 mg/dL [facility] Bilirubin, Total 0.3 0.0 - 1.0 mg/dL [facility] Aspartate Amino Transferase 28 5 - 37 U/L [facility] Alanine Aminotransferase <6 0 - 40 U/L [facility] Total Protein 8.3(H) 6.5 - 8.0 g/dL [facility] Albumin Level 3.0(L) 3.5 - 5.0 g/dL [facility] Alkaline Phosphatase 79 39 - 117 U/L [facility] 07/22/2025 1:45 PM EDT 07/22/2025 1:50 PM EDT us Generic External Data Provider LAB BLOOD ORDERAB LES Final Result [facility] [address] [place] [phone] * XR Tibia Fibula 2 Views Right (07/22/2025 1:15 PM EDT) Anatomical Region Laterality Modality Lower Extremities, Lower Leg Right Rad iographic Imaging 07/22/2025 1:15 PM EDT Narrative 07/22/2025 1:47 PM EDT [address] [address] XRay Report Signed with Ruiz Patient: Deandre Luong MR#: [id number] 3 : 1980 Acct:[id number] Age/Sex: 45 / M ADM Date: 07/22/25 Loc: HO.ED Attending Dr: Ordering Physician: Melissa Waters NP Date of Service: 07/22/25 Procedure(s): XR tibia fibula RT 2V Accession Number(s): [id number] cc: [facility]; Melissa Waters NP Reason for Exam: wound at amp site, c/f osteo ADDENDUM ADDENDUM #1 Addendum: Abnormality concerning for osteomyelitis involves the distal end of the amputated tibia, not the femur. Additionally, the sentence stating The procedure ulceration in the soft tissues at the distal lateral and of the femur. Should instead state: There is soft tissue ulceration adjacent the distal lateral end of the tibia. Electronically signed by: Kenroy Torres MD 07/22/2025 02:18 PM EDT RP Addendum Dictated By: Kenroy Torres MD Addendum Signed By: <Electronically signed by Kenroy Torres MD in OV> 07/22/25 1418 Addendum Cosigned By: DD/ TD/TT: 07/22/25 EXAMINATION: XR TIBIA AND FIBULA, RIGHT CLINICAL INFORMATION: wound at amp site, c/f osteo COMPARISON: None available. TECHNIQUE: AP and lateral views of the right tibia and fibula were obtained. FINDINGS: There is no knee joint effusion. Joint spaces are preserved. Moderate vascular calcifications are evident. Below the knee amputation has been performed. The procedure ulceration in the soft tissues at the distal lateral and of the femur. There is adjacent focal osteopenia in the medullary space and cortex with periosteal new bone formation concerning for osteomyelitis. The distal end of the remaining fibula appears intact. XR/XR tibia fibula RT 2V IMPRESSION: There is concern for osteomyelitis in the distal end of the remaining femur after amputation. Electronically signed by: Kenroy Torres MD 07/22/2025 01:45 PM EDT RP Dictated By: Kenroy Torres MD Signed By: <Electronically signed by Kenroy Torres MD in OV> 07/22/25 1345 DD/ 1315 TD/TT: 07/22/25 1320 Sharepoint Developer: Procedure Note Donotuseinterpreter, Image - 07/22/2025 [facility] [address] [place] [address] XRay Report Signed with Addenda Patient: Deandre Luong MMR#: [id number] 3 : 1980Acct:[id number] Age/Sex: 45 / MADM Date: 07/22/25 Loc: HO.ED Attending Dr: Ordering Physician: Melissa Waters NP Date of Service: 07/22/25 Procedure(s): XR tibia fibula RT 2V Accession Number(s): [id number] cc: [facility]; Melissa Waters NP Reason for Exam: wound at amp site, c/f osteo ADDENDUM ADDENDUM #1 Addendum: Abnormality concerning for osteomyelitis involves the distal end of the amputated tibia, not the femur. Additionally, the sentence stating The procedure ulceration in the soft tissues at the distal lateral and of the femur. Should instead state: There is soft tissue ulceration adjacent the distal lateral end of the tibia. Electronically signed by: Kenroy Torres MD 07/22/2025 02:18 PM EDT Addendum Dictated By: Kenroy Torres MD Addendum Signed By: <Electronically signed by Kenroy Lemons MD in OV> 07/22/25 1418 Addendum Cosigned By: DD/ TD/TT: 07/22/25 EXAMINATION: XR TIBIA AND FIBULA, RIGHT CLINICAL INFORMATION: wound at amp site, c/f osteo COMPARISON: None available. TECHNIQUE: AP and lateral views of the right tibia and fibula were obtained. FINDINGS: There is no knee joint effusion. Joint spaces are preserved. Moderate vascular calcifications are evident. Below the knee amputation has been performed. The procedure ulceration in the soft tissues at the distal lateral and of the femur. There is adjacent focal osteopenia in the medullary space and cortex with periosteal new bone formation concerning for osteomyelitis. The distal end of the remaining fibula appears intact. XR/XR tibia fibula RT 2V IMPRESSION: There is concern for osteomyelitis in the distal end of the remaining femur after amputation. Electronically signed by: Kenroy Torres MD 07/22/2025 01:45 PM EDT RP Dictated By: Kenroy Torres MD Signed By: <Electronically signed by Kenroy Torres MD in OV> 07/22/25 1345 DD/ 1315 TD/TT: 07/22/25 1320 Sharepoint Developer: [employer] External Provider IMG XR PROCEDURES Edited Result - Final * Blood Culture (Second) (07/22/2025 12:56 PM EDT) Blood Venous blood specimen / Unknown 07/22/2025 12:56 PM EDT 07/23/2025 9:21 AM EDT Comment:Blood Narrative [facility] - 07/23/2025 9:22 AM EDT Blood Culture (Second) Test not performed NO SPECIMEN RECEIVED. PATIENT DEPARTED ED Specimen Source: Blood Generic External Data Provider LAB MICROBIOLOGY - GENERAL ORDERABLES Final Result Performing Organization Address City/State/[facility] Co de Phone Number [facility] [address] [place] [phone] * XR Chest 1 View (05/09/2025 8:40 AM EDT) Anatomical Region Laterality Modality Chest Radiographic Hilda ging 05/09/2025 8:40 AM EDT Narrative 05/09/2025 9:01 AM EDT [address] [address] XRay Report Signed Patient: Deandre Luong MR#: [id number] 3 : 1980 Acct:[id number] Age/Sex: 44 / M ADM Date: 05/09/25 Loc: .ED Attending Dr: Ordering Physician: Jose Samuel MD Date of Service: 05/09/25 Procedure(s): XR chest 1V Accession Number(s): [id number] cc: Jose Samuel MD; [facility] EXAMINATION: XR CHEST 1 VIEW [...] OV> 05/09/25 0858 DD/ TD/TT: 05/09/25 0849 Sharepoint Developer: Procedure Note Donotuseinterpreter, Image - 05/09/[address] [address] XRay Report Signed Patient: Deandre Luong [facility]#: [id number] 3 : 1980Acct:[id number] Age/Sex: 44 / MADM Date: 05/09/25 Loc: .ED Attending Dr: Ordering Physician: Jose Samuel MD Date of Service: 05/09/25 Procedure(s): XR chest 1V Accession Number(s): [id number] cc: Jose Samuel MD; [facility] EXAMINATION: XR CHEST 1 VIEW [...] García Loza MD 05/09/2025 08:58 AM EDT Dictated By: García Loza MD Signed By: <Electronically signed by García Loza MD in OV> 05/09/25 0858 DD/ 0840 TD/TT: 05/09/25 0849 Sharepoint Developer: [employer] External Provider IMG XR PROCEDURES Final Result * (ABNORMAL) High Sensitivity Troponin I (05/09/2025 7:36 AM EDT) Only the most recent of2 resultswithin the time period is included. TROPONIN I HIGH SENSITIVITY 2,867.7(H H) <3.5 - 35.0 ng/L [facility] Comment:Critical value for H S-TnI: Results called to and read caroly: HAZEL Person calling: [employer] Date: 05/09/25 Time: 821The Roe high sensitivity Troponin-I results should beused in conjunction with other diagnostic information suchas ECG, clinical observations and information, and patientsymptoms to aid in the diagnosis of HI. 05/09/2025 7:36 AM EDT 05/09/2025 7:43 AM EDT Generic External Data Provider LAB BLOOD ORDERAB LES Final Result Performing Organization Address City/[facility]/ZIP Co de Phone Number [facility] [address] [place] [phone] * Glucose, Whole Blood (05/09/2025 7:10 AM EDT) Glucose, Whole Blood 108 60 - 115 mg/dL [facility] Comment:METER #: [id number] 05/09/2025 7:10 AM EDT 05/09/2025 7:33 AM EDT Generic External Data Provider LAB BLOOD ORDERAB LES Final Result Performing Organization Address City/[facility]/ZIP Co de Phone Number [facility] [address] [place] [address] [phone] * (ABNORMAL) VENOUS BLOOD GAS (05/09/2025 6:03 AM EDT) VBG pH 7.28(L) 7.32 - 7.43 [facility] Comment:METER #: [id number] additional_comment: ADAM PICKENSB VBG PCO2 58 mmHg [facility] Comment:METER #: [id number] additional_comment: CB MARTELB VBG PO2 42 mmHg [facility] Comment:METER #: [id number] additional_comment: CB FRANCYELB VBG Base Excess 0.4 mmol/L [facility] Comment:METER #: [id number] additional_comment: CB FRANCYELB VBG HCO3 28(H) 22 - 26 mmol/L [facility] Comment:METER #: [id number] additional_comment: ADAM PICKENSB O2 Sat, Homar 57.0 % [facility] Comment:METER #: [id number] additional_comment: ADAM MONTERO 05/09/2025 6:03 AM EDT 05/09/2025 6:08 AM EDT us Generic External Data Provider LAB BLOOD ORDERAB LES Final Result Performing Organization Address [facility]/ZIP Co de Phone Number [facility] [address] [place] [address] [phone] * Ethanol (05/09/2025 5:54 AM EDT) ETHANOL (MG/DL) IN SER/PLAS <10 mg/dL [facility] Comment:Serum/plasma ethanol results are to be used formedical/treatment purposes only. 05/09/2025 5:54 AM EDT 05/09/2025 6:01 AM EDT us Generic External Data Provider LAB BLOOD ORDERAB LES Final Result Performing Organization Address [facility]/ZIP Co de Phone Number [facility] [address] [place] [address] [phone] * SARS-CoV-2 RNA, Influenza A/B, and RSV RNA, Ql NAAT (05/09/2025 5:54 AM EDT) Influenza A PCR NEGATIVE Negative [facility] Influenza B PCR NEGATIVE Negative [facility] Resp Syncy Virus RNA Qual PCR NEGATIVE Negative [facility] SARS COV2 PCR NEGATIVE Negative [facility] Comment:All test results mus t [...] use by authorized laboratories.Testing performed on the [email or web address] GeneXpert utilizingreal-time RT-PCR.All SARS CoV2 and positive influenza A/B results arereported to [facility]. 05/09/2025 5:54 AM EDT 05/09/2025 6:01 AM EDT Generic External Data Provider LAB MICROBIOLOGY - GENERAL ORDERABLES Final Result Performing Organization Address [facility]/ZIP Co de Phone Number [facility] [address] [place] [phone] * Lactic Acid (05/09/2025 5:54 AM EDT) Pathologist [facility] Lactic Acid 1.0 0.5 - 2.0 mmol/L [facility] 05/09/2025 5:54 AM EDT 05/09/2025 6:01 AM EDT Generic External Data Provider LAB BLOOD ORDERAB LES Final Result Performing Organization Address [facility]/ZIP Co de Phone Number [facility] [address] [place] [address] [phone] * (ABNORMAL) POCT A1C (07/14/2023 1:40 PM EDT) Hemoglobin A1C 11.1(A) 4.0 - 6.0 % QC Media Lot # [id number] Lot# Expiration Date 924 Blood 07/14/2023 1:40 PM EDT Awilda Walters MD POINT OF CARE TEST ENTER /EDIT ORDERABLES Final Result * MICROALBUMIN, RANDOM (12/13/2019 1:40 PM EST) Pathologist [facility] CREATININE, RANDOM URINE 32.74 MG/DL [facility] MICALB/CRE RATIO RANDOM URINE 2736.7 ug/mg cr [facility] Comment: Albumin/Creatinine Ratio Reference Ranges: Normal: < 30 ug/mg creatinine Microalbuminuria: 30 - 300 ug/mg creatinine Clinical Albuminuria: > 300 ug/mg creatinine MICROALBUMIN, RANDOM URINE 896.0 MG/L [facility] 12/13/2019 1:40 PM EST Rick Hurd MD HISTORICAL/NON ORDERABLE LABS Final Result Performing Organization Address City/State/[facility] Co de Phone Number [facility] [address] [place] [address] * Hepatitis C Antibody (06/22/2019) Hepatitis C Antibody Nonreactive Blood Historical Alex DAVIS HEALTH MAINTENANCE Final Result * HIV 1/2 Antigen and Antibody (06/22/2019) HIV Ag/Ab Nonreactive Hector Johnson MD HEALTH MAINTENANCE Final Result from Last 3 Months or Most Recently Relevant to Health Maintenance [place] [place] [address] C3
--- OUTSIDE RECORDS SUMMARY | 2025-08-01 18:21 | XMS_ITS | Encounter Summary ---
Author Organization [employer] Address [address] [address] Care Team Providers Care Performance Reporter Name Role Phone Cristina Stover MD Primary Care Provider +1- [phone] Cristina Stover MD Primary Care Provider +1- [phone] Cristina Stover MD Primary Care Provider +1- [phone] Encounter Details Date Type Department Care Team (Late st Contact Info) Description 06/04/2023 Orders Only [facility] MEDICINE [address] [place] [address] Cristina Stover MD [address] [place] [address] Uncomplicated opioid dependence (CMS/HCC); Polysubstance abuse (CMS/HCC); [...] Description 08/02/2025 2:15 PM EDT Office Visit [facility] MED & PEDS [address] [place], [place] [phone] Kadie Guzmán MD [address] [place] [address] documented as of this encounter Visit Diagnoses Diagnosis Uncomplicated opioid dependence (CMS/HCC) (HCC) Polysubstance abuse (HCC) Other, mixed, or unspecified nondependent drug abuse, unspecified Amputation of foot (CMS/HCC) (HCC) Altered mental status, unspecified altered mental status type documented in this encounter Care Teams Performance Reporter Relationship Specialty Start Date End Date Cristina Stover MD [address] [place] [address] PCP - General Family Medicine 05/20/14 12/30/23 Cristina Stover MD [address] [place] [address] PCP - General Family Medicine 01/06/24 08/29/24 Cristina Stover MD [address] [place] [address] PCP - General Family Medicine 11/29/24 12/20/24 documented as of this encounter
--- OUTSIDE RECORDS SUMMARY | 2025-08-01 18:21 | XMS_ITS | Encounter Summary ---
Author Organization [facility] Address [address] [place] [address] Phone Care Team Providers Care Cell Reliner Name Role Phone [place], Cristina Montano MD Primary Care Provider Randall meena Encounter Details Date Type Department Care Team (Late st Contact Info) Description 04/17/2022 Telephone [facility] [address] [place] [address] Rick Hurd MD [address] [facility] [address] [place] [address] Social History Tobacco Use Types [...] that process. Please call her back at [phone] documented in this encounter Plan of Treatment Not on file documented as of this encounter Visit Diagnoses Not on filedocumented in this encounter Care Teams Cell Reliner Relationship Specialty Start Date End Date Cristina Stover MD PCP - General 11/13/20 documented as of this encounter
--- OUTSIDE RECORDS SUMMARY | 2025-08-01 18:21 | XMS_ITS | Encounter Summary ---
Author Organization [employer] Address [address] [facility] 7t [place] [address] Care Team Providers Care Tanning Drum Operator Name Role Phone Unavailable Primary Care Provider Unavailabl e Reason for Visit * Reason Onset Date Comments chart prep 08/01/2025 Encounter Details Date Type Department Care Team (Late st Contact Info) Description 08/01/2025 Telephone [facility] [address] [place] [address] Vicente [place], [place] chart prep Social History Tobacco Use Types Packs/Day Years Used Date Smoking Tobacco: Every Day Cigarettes Smokeless Tobacco: Never Alcohol Use Standard Drinks/Week Comments Never 0 (1 standard drink = 0.6 oz pur e alcohol) Housing Stability Answer Date Recorded What is your housing situation today? I have eric trin[place] 08/18/[address] you li [...] encounter Miscellaneous Notes * Telephone Encounter - Ivet Zhang [place] - 08/01/2025 11:52 AM EDT Chart Prep Labs: not applicable Images: not applicable Referrals: not applicable Vaccines due: Covid, Flu, Tdap, Td, and DTAP Screenings: colonoscopy Overdue care gaps: A1c, Glucose, SBIRT, SDOH, PHQ-9, VERN-7, and Disability screen documented in this encounter Plan of Treatment Upcoming Encounters Date Type Department Care Team (Late st Contact Info) Description 08/02/2025 2:15 PM EDT Office Visit [facility] CHC MED & PEDS [address] [place] [address] Kadie Guzmán MD [address] [place] [address] documented as of this encounter Visit Diagnoses Not on filedocumented in this encounter
--- OUTSIDE RECORDS SUMMARY | 2025-08-01 18:21 | XMS_ITS | Encounter Summary ---
Author Organization [employer] Address 75 [facility] 7t [place] [address] Care Team Providers Care Keno Writer/Runner Name Role Phone Unavailable Primary Care Provider Unavailabl e Encounter Details Date Type Department Care Team (Late st Contact Info) Description 07/29/2025 Telephone [facility] MEDICINE [address] [place] [address] Klye Mitchell MD [address] [place] [address] Social History Tobacco Use Types Packs/Day Years [...] encounter Miscellaneous Notes * Telephone Encounter - Erick Jesús - 07/29/2025 3:45 PM EDT TC placed to pt to help schedule TP visit . Also needing to update demographic information. ( Very address ) documented in this encounter Plan of Treatment Upcoming Encounters Date Type Department Care Team (Late st Contact Info) Description 08/02/2025 2:15 PM EDT Office Visit [facility] MED & PEDS [address] [place] [address] Kadie Guzmán MD [address] [place] [address] documented as of this encounter Visit Diagnoses Not on filedocumented in this encounter
--- OUTSIDE RECORDS SUMMARY | 2025-08-01 18:21 | XMS_ITS | Encounter Summary ---
Author Organization [employer] Address 75 [facility] 7t [place] [address] Care Team Providers Care Waiter/Waitress Captain Name Role Phone Unavailable Primary Care Provider Unavailabl e Reason for Visit * Reason Comments Med Refill Encounter Details Date Type Department Care Team (Late st Contact Info) Description 07/27/2025 Refill [facility] MED & PEDS [address] [place] [address] Cristina Stover MD [address] [place] [address] Type 2 diabetes mellitus with stage 3 chronic kidney disease, with long-term current use of insulin, unspecified whether stage 3a or 3b CKD (CMS/HCC); Diabetes mellitus, stable (CMS/HCC) Social History Tobacco Use Types Packs/Day [...] encounter Miscellaneous Notes * Telephone Encounter - Alee Rose - 07/27/2025 3:37 PM EDT Tc from pt requesting a refill for FREESTYLE LITE test strip. Loan Auditor advised he not a pt we us as he has not been seen since 07/14/2023 and that he need to establish care again in regard of him to gethis test strip. Loan Auditor toñito pt twice, no responded documented in this encounter Plan of Treatment Upcoming Encounters Date Type Department Care Team (Late st Contact Info) Description 08/02/2025 2:15 PM EDT Office Visit [facility] CHC MED & PEDS [address] [place] [address] Kadie Guzmán MD [address] [place] [address] documented as of this encounter Visit Diagnoses Diagnosis Type 2 diabetes mellitus with stage 3 chronic kidney disease, with long-term current use of insulin, unspecified whether stage 3a or 3b CKD (HCC) Diabetes mellitus, stable (HCC) Type II or unspecified type diabetes mellitus without mention of complication, not stated as uncontrolled documented in this encounter
--- OUTSIDE RECORDS SUMMARY | 2025-08-01 18:21 | XMS_ITS | Encounter Summary ---
Author Organization [employer] Address 75 [facility] 7t [place] [address] Care Team Providers Care Automotive Parts Coordinator Name Role Phone Unavailable Primary Care Provider Unavailabl e Reason for Visit * Reason Comments Med Refill Encounter Details Date Type Department Care Team (Late st Contact Info) Description 06/13/2025 Refill [facility] MED & PEDS [address] [place] [address] Araseli Rucker, ANP [address] [place] [address] Other insomnia Social History Tobacco Use Types [...] Description 08/02/2025 2:15 PM EDT Office Visit [facility] MED & PEDS [address] [place] [address] Kadie Guzmán MD [address] [place] [address] documented as of this encounter Visit Diagnoses Diagnosis Other insomnia documented in this encounter
--- OUTSIDE RECORDS SUMMARY | 2025-08-01 18:21 | XMS_ITS | Encounter Summary ---
Author Organization [facility] Address [address] [facility] [address] [place] [address] Phone Care Team Providers Care Beck Tender Name Role Phone [place], Cristina Montano MD Primary Care Provider U navailable Reason for Visit * Reason Comments Med Refill Encounter Details Date Type Department Care Team (Late st Contact Info) Description 01/04/2022 Refill [facility] [address] [facility] [address] [place] [address] Rick Hurd MD [address] [facility] [address] [place] [address] Social History Tobacco Use Types [...] on filedocumented in this encounter Care Teams Beck Tender Relationship Specialty Start Date End Date Ck, Cristina Montano MD PCP - General 11/13/20 documented as of this encounter
--- OUTSIDE RECORDS SUMMARY | 2025-08-01 18:22 | XMS_ITS | Encounter Summary ---
Author Organization [employer] Address 75 [facility] 7 [place] [address] Care Team Providers Care Stumper Feller Name Role Phone Cristina Stover MD Primary Care Provider +1- [phone] Cristina Stover MD Primary Care Provider +1- [phone] Cristina Stover MD Primary Care Provider +1- [phone] Reason for Visit * Reason Onset Date Comments Hospital Follow-up 11/26/2023 Encounter Details Date Type Department Care Team ([facility] st Contact Info) Description 11/26/2023 Telephone [facility] MEDICINE [address] [place], [place] [phone] Cristina Stover MD [address] [place], [place] [phone] Hospital Follow-up Social History Tobacco Use Types [...] pt requesting a HDF appt. [facility] Date of admission: 11/16/2023 Discharge date: 11/25/2023 Diagnosed: Surgery (amputation) documented in this encounter Plan of Treatment Upcoming Encounters Date Type Department Care Team (Late st Contact Info) Description 08/02/2025 2:15 PM EDT Office Visit [facility] MED & PEDS [address] [place] [address] Kadie Guzmán MD [address] [place] [address] documented as of this encounter Visit Diagnoses Not on filedocumented in this encounter Care Teams Stumper Feller Relationship Specialty Start Date End Date Cristina Stover MD [address] [place] [address] PCP - General Family Medicine 05/20/14 12/30/23 Cristina Stover MD [address] [place] [address] PCP - General Family Medicine 01/06/24 08/29/24 Cristina Stover MD [address] [place] [address] PCP - General Family Medicine 11/29/24 12/20/24 documented as of this encounter
--- OUTSIDE RECORDS SUMMARY | 2025-08-01 18:22 | XMS_ITS | Clinical Summary ---
Author Organization [facility] Address [address] [place] [address] Phone Care Team Providers Care Tree Deadener Name Role Phone Cristina Stover MD Primary [...] recreational drug use. FU with PCP Tobacco use disorder 06/23/2023 Overview (01/23/2024): -motivational interviewing done Peripheral vascular disease 06/23/2023 Overview (01/23/2024): Last Assessment & Plan: Sec to DM, HTN, smoking, cocaine use. 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 Has fu appt [...] status 06/04/2023 Overview (01/23/2024): Admitted 05/04/23 to [facility] for encephalopathy thought to be cocaine related. he was discharged against medical advice. Seen in [facility] 05/09/23 with repot of myoclonic spasms. Urine drug screen positive for opiates, fentanyl and cocaine.seen 05/11/23 in [facility] ER for continued abnormal movents and discharged home. Admitted to [facility] 05/12/23-05/14/23 for possible seizure activity. [...] 9,1978,08/21 Influenza Split 07/29/2012 Influenza, Injectable, [place]in [place] Canine Kidney, Preservative Free 11/16/2015 Influenza, Quadrivalent, [...] Vaccine: 50+ Years Discontinued 6 Insurance Medicaid [place] Care Teams Tree Deadener Relationship Specialty Start Date End Date Ck, Cristina Montano MD PCP - General 11/13/20
--- OUTSIDE RECORDS SUMMARY | 2025-08-01 18:22 | XMS_ITS | Encounter Summary ---
Author Organization [facility] Address [address] [place] [address] Care Team Providers Care Tax Processor Name Role Phone Cristina Stover MD Primary Care Provider +1- [phone] Cristina Stover MD Primary Care Provider +1- [phone] Cristina Stover MD Primary Care Provider +1- [phone] Encounter Details Date Type Department Care Team (Late Contact Info) Description 03/20/2023 Orders Only [facility] MED & PEDS [address] [place] [address] Nay Benitez LPN Social History Tobacco Use [...] Encounters Date Type Department Care Team (Late Contact Info) Description 08/02/2025 2:15 PM EDT Office Visit [facility] MED & PEDS [address] [place] [address] Kadie Guzmán MD [address] [place] [address] documented as of this encounter Visit Diagnoses Not on filedocumented in this encounter Care Teams Tax Processor Relationship Specialty Start Date End Date Cristina Stover MD [address] [place] [address] PCP - General Family Medicine 05/20/14 12/30/23 Cristina Stover MD [address] [place] [address] PCP - General Family Medicine 01/06/24 08/29/24 Cristina Stover MD [address] [place] [address] PCP - General Family Medicine 11/29/24 12/20/24 documented as of this encounter
--- OUTSIDE RECORDS SUMMARY | 2025-08-01 18:22 | XMS_ITS | Encounter Summary ---
Author Organization [facility] Address [address] [place] [address] Phone Care Team Providers Care Tax Compliance Agent Name Role Phone Ck, Cristina Petersen MD Primary Care Provi jason Encounter Details Date Type Department Care Team (Late st Contact Info) Description 02/16/2022 Procedure [facility], Ct Scan - [address] [address] Social History Tobacco Use Types Packs/Day Years [...] 4:52 PM EDT Alan Gutiérrez RN * [place] Suicide Severity Rating Scale (Screener/Recent Self-Report) Question [...] filedocumented in this encounter Care Teams Tax Compliance Agent Relationship Specialty Start Date End Date [place], Cristina Petersen MD [address] [place] [address] PCP - General 08/19/17 documented as of this encounter Additional Source Comments The information contained in this document represents components of the legal health record. It is not the complete legal health record.[facility]
--- OUTSIDE RECORDS SUMMARY | 2025-08-01 18:22 | XMS_ITS | Clinical Summary ---
Author Organization [facility] Address [address] [facility] [address] [place] [address] Phone Care Team Providers Care Infusion Nurse Name Role Phone Cristina Stover MD Primary [...] EDT) SODIUM 127(L) 133 - 146 mmol/L [facility] CHLORIDE 92(L) 96 - 108 mmol/L [facility] POTASSIUM 5.6(H) 3.3 - 5.1 mmol/L [facility] Comment:Specimen slightly he molyzed, result may be falsely elevated. CO2 27 21 - 35 mmol/L [facility] BUN 40(H) 6 - 19 mg/dL [facility] CREATININE 3.30(H) 0.5 - 1.5 mg/dL [facility] GLUCOSE 325(H) 70 - 99 mg/dL [facility] CALCIUM 9.7 8.4 - 10.3 mg/dL [facility] EGFR 23(L) >59 mL/min/1.7 3m2 [facility] Comment:Estimated glomerular filtration rate calculated using the CKD-EPI refit equation. ANION GAP 14 10 - 20 mmol/L [facility] Blood 02/16/2022 5:52 PM EDT 02/16/2022 6:00 PM EDT us Jeny Feldman MD LAB BLOOD ORDERABLES Final R esult [address] [address] from Last 3 Months or Most Recently Relevant to Health Maintenance Insurance C3 ACO C3 ACO C3 ACO C3 ACO C3 ACO C3 ACO C3 ACO C3 ACO C3 ACO Care Teams Infusion Nurse Relationship Specialty Start Date End Date Ck, Cristina Petersen MD [address] [place] [address] PCP - General 08/19/17 Additional Source Comments The information contained in this document represents components of the legal health record. It is not the complete legal health record.[facility]
--- OUTSIDE RECORDS SUMMARY | 2025-08-01 18:22 | XMS_ITS | Encounter Summary ---
Author Organization [employer] Address [address] [facility] 7t [place] [address] Care Team Providers Care House Servant Name Role Phone Cristina Stover MD Primary Care Provider +1- [phone] Cristina Stover MD Primary Care Provider +1- [phone] Cristina Stover MD Primary Care Provider +1- [phone] Encounter Details Date Type Department Care Team (Late st Contact Info) Description 10/17/2023 Telephone [facility] MEDICINE [address] [place], [place] [phone] Cristina Stover MD [address] [place], [place] [phone] Social History Tobacco Use Types Packs/Day Years [...] mom of pt requesting Phone number of [facility] wheel chair clinic. PCP DR. Stover documented in this encounter Plan of Treatment Upcoming Encounters Date Type Department Care Team (Late st Contact Info) Description 08/02/2025 2:15 PM EDT Office Visit [facility] MED & PEDS [address] [place] [address] Kadie Guzmán MD [address] [place] [address] documented as of this encounter Visit Diagnoses Not on filedocumented in this encounter Care Teams House Servant Relationship Specialty Start Date End Date Cristina Stover MD [address] [place] [address] PCP - General Family Medicine 05/20/14 12/30/23 Cristina Stover MD [address] [place] [address] PCP - General Family Medicine 01/06/24 08/29/24 Cristina Stover MD [address] [place] [address] PCP - General Family Medicine 11/29/24 12/20/24 documented as of this encounter
--- OUTSIDE RECORDS SUMMARY | 2025-08-01 18:22 | XMS_ITS | Encounter Summary ---
Author Organization [facility] Address [address] [place] [address] Care Team Providers Care Backrest Assembler Name Role Phone Cristina Stover MD Primary Care Provider +1- [phone] Cristina Stover MD Primary Care Provider +1- [phone] Cristina Stover MD Primary Care Provider +1- [phone] Reason for Visit * Reason Onset Date Comments PT1 05/30/2023 Encounter Details Date Type Department Care Team (Late Contact Info) Description 05/30/2023 Telephone [facility] MED[facility]INE [address] [place] [address] Cristina Stover MD [address] [place] [address] PT1 Social History Tobacco Use Types Packs/Day [...] PT1 Date: 06/02/23 Time: 9 am address: [address] [place] [address] specialty: hospital f/u # visits: roaster operator: n/a Wheelchair: yes documented in this encounter Plan of Treatment Upcoming Encounters Date Type Department Care Team (Late Contact Info) Description 08/02/2025 2:15 PM EDT Office Visit [facility] MED & PEDS [address] [place] [address] Kadie Guzmán MD [address] [place] [address] documented as of this encounter Visit Diagnoses Not on filedocumented in this encounter Care Teams Backrest Assembler Relationship Specialty Start Date End Date Cristina Stover MD [address] [place] [address] PCP - General Family Medicine 05/20/14 12/30/23 Cristina Stover MD [address] [place] [address] PCP - General Family Medicine 01/06/24 08/29/24 Cristina Stover MD [address] [place] [address] PCP - General Family Medicine 11/29/24 12/20/24 documented as of this encounter
--- OUTSIDE RECORDS SUMMARY | 2025-08-01 18:22 | XMS_ITS | Encounter Summary ---
Author Organization [email or web address] [facility] Address [address] [place] [address] Care Team Providers Care Manager Of Finance Name Role Phone Cristina Stover MD Primary Care Provider +1- [phone] Cristina Stover MD Primary Care Provider +1- [phone] Cristina Stover MD Primary Care Provider +1- [phone] Encounter Details Date Type Department Care Team (Late st Contact Info) Description 01/17/2023 Orders Only [facility] MED & PEDS [address] [place] [address] Nay Benitez LPN Social History Tobacco Use [...] 2:15 PM EDT Office Visit [facility] MED & PEDS [address] [place] [address] Kadie Guzmán MD 505 [place] [address] documented as of this encounter Visit Diagnoses Not on filedocumented in this encounter Care Teams Manager Of Finance Relationship Specialty Start Date End Date Cristina Stover MD [address] [place] [address] PCP - General Family Medicine 05/20/14 12/30/23 Cristina Stover MD [address] [place] [address] PCP - General Family Medicine 01/06/24 08/29/24 Cristina Stover MD [address] [place] [address] PCP - General Family Medicine 11/29/24 12/20/24 documented as of this encounter
--- OUTSIDE RECORDS SUMMARY | 2025-08-01 18:22 | XMS_ITS | Encounter Summary ---
Author Organization [employer] [facility] Address [address] [place] [address] Care Team Providers Care Mold Maker Apprentice Name Role Phone Cristina Stover MD Primary Care Provider +1- [phone] Cristina Stover MD Primary Care Provider +1- [phone] Cristina Stover MD Primary Care Provider +1- [phone] Encounter Details Date Type Department Care Team (Late st Contact Info) Description 11/19/2022 Orders Only [facility] MED & PEDS [address] [place] [address] Nay Benitez LPN Social History Tobacco Use [...] Description 08/02/2025 2:15 PM EDT Office Visit [facility] MED & PEDS [address] [place] [address] Kadie Guzmán MD 505 [place] [address] documented as of this encounter Visit Diagnoses Not on filedocumented in this encounter Care Teams Mold Maker Apprentice Relationship Specialty Start Date End Date Cristina Stover MD [address] [place] [address] PCP - General Family Medicine 05/20/14 12/30/23 Cristina Stover MD [address] [place] [address] PCP - General Family Medicine 01/06/24 08/29/24 Cristina Stover MD [address] [place] [address] PCP - General Family Medicine 11/29/24 12/20/24 documented as of this encounter
--- OUTSIDE RECORDS SUMMARY | 2025-08-01 18:22 | XMS_ITS | Encounter Summary ---
Author Organization [employer] Address [address] [facility] 7 [place] [address] Care Team Providers Care Workforce Manager Name Role Phone Cristina Stover MD Primary Care Provider +1- [phone] Cristina Stover MD Primary Care Provider +1- [phone] Cristina Stover MD Primary Care Provider +1- [phone] Reason for Visit * Reason Comments Med Refill Encounter Details Date Type Department Care Team (Late st Contact Info) Description 05/26/2023 Refill [facility] [address] [place] [address] Araseli Rucker, ANP [address] [place] [address] Social History Tobacco Use Types Packs/Day Years [...] Description 08/02/2025 2:15 PM EDT Office Visit [facility] MED & PEDS 505 [place] [address] Kadie Guzmán MD 505 [place] [address] documented as of this encounter Visit Diagnoses Not on filedocumented in this encounter Care Teams Workforce Manager Relationship Specialty Start Date End Date Cristina Stover MD [address] [place] [address] PCP - General Family Medicine 05/20/14 12/30/23 Cristina Stover MD [address] [place] [address] PCP - General Family Medicine 01/06/24 08/29/24 Cristina Stover MD 230 [place] [address] PCP - General Family Medicine 11/29/24 12/20/24 documented as of this encounter
--- OUTSIDE RECORDS SUMMARY | 2025-08-01 18:22 | XMS_ITS | Encounter Summary ---
Author Organization [employer] Address 75 [facility] 7t [place] [address] Care Team Providers Care Broom Machine Operator Name Role Phone Unavailable Primary Care Provider Unavailabl e Reason for Visit * Reason Comments Med Refill Encounter Details Date Type Department Care Team (Late st Contact Info) Description 04/06/2025 Refill [facility] [address] [place] [address] Cristina Stover MD [address] [place] [address] Social History Tobacco Use Types Packs/Day Years [...] 08/02/2025 2:15 PM EDT Office Visit [facility] MED & PEDS 505 [place] [address] Kadie Guzmán MD 505 [place] [address] documented as of this encounter Visit Diagnoses Not on filedocumented in this encounter
== END 2025-08-01 16:26 | disposition home or self-care (01) ==
LOC: HO.HCC 16:24
PROVIDERS: Visit Provider Internal Medicine
DX: F11.20 Opioid dependence, uncomplicated (principal)
CPT/HCPCS: 99213

== ENCOUNTER → 2025-08-03 23:59 | Outpatient (BNV) | payer MEDICAID, SELFPAY | PROVIDERS: PCP Family Medicine; Visit Provider Internal Medicine Nephrology | DX: N18.6 End stage renal disease (principal) | CPT/HCPCS: 90962 ==

== ENCOUNTER 2025-08-09 09:10 | Outpatient (AMB) | payer MEDICAID, SELFPAY ==
--- NOTE | 2025-08-09 09:35 | A.OFFVIS_ITS ---
Intake Visit Reasons: BREWERY PUMPER/ALONSO re-referral for fistula Intake Note: Patient goes to dialysis Friday, Friday and Friday. Accompanied by: Self / Same As Patient Allergies No Known Allergies (No Known Allergies*) Allergy (Verified 08/09/25 09:36) HPI HPI BREWERY PUMPER/ALONSO re-referral for fistula: Details: Very complex 55-year-old gentleman who is with end-stage renal disease on hemodialysis regimen through a TTC of Friday. Does have a prior history of right BKA and left transmetatarsal amputation. He also has a history of opioid use disorder and on Suboxone who was most recently in the hospital on 05/09/2025. At that time he was admitted for a syncopal episode. He now presents to us for vascular evaluation regarding dialysis access. [facility] Medical History Opioid use disorder, severe, dependence ESRD needing dialysis ESRD on dialysis Anemia in chronic kidney disease (CKD) ESRD (end stage renal disease) on dialysis Open wound Bacteremia Volume overload Paroxysmal atrial flutter Cardiomyopathy Pericardial effusion Atrial flutter Need for acute hemodialysis Leukocytosis Anemia Anemia Transfusion history Atrial flutter, paroxysmal COPD (chronic obstructive pulmonary disease) Constipation Callus of foot Seizure Polysubstance abuse CKD (chronic kidney disease) stage 3, GFR 30-59 ml/min Foot osteomyelitis, left Amputation of toe of right foot Diabetic ulcer of right foot Hyperglycemia due to type 2 diabetes mellitus Renal failure Sleep apnea Diabetes HTN (hypertension) Surgical History Hx of right BKA History of surgical procedure (~04/24/23) Social History Household Members: Family Household Members Other:: mother Housing: Apartment Do you presently have visiting nurse or other home services: No Alcohol intake: former Comment: Sitter Patient Tobacco Use Status: Tobacco use Unknown Tobacco use type: Cigarette Cigarette Packs Per Day: 0.5 Cigarettes Per Day: 6 Years Smoked: 33 e-Cigarette/Vaping Use: Currently Using Second Hand Smoke Exposure: Yes Substance Use Type: Marijuana service: No Review of Systems Const All systems reviewed & are unremarkable except as noted in HPI and below Reports no additional complaints ENT Reports Normal hearing present Card Denies chest pain, Denies chest pain at rest, Denies chest pain with activity and Denies pedal edema Resp Denies cough GI Denies abdominal pain Musc Denies abnormal gait, Denies muscle cramps and Denies radiating pain into limb Skin/Breast Denies skin ulcer and Denies wounds Neuro Reports Normal hearing present and Denies abnormal gait Psych Reports no additional complaints Physical Exam Const General: cooperative, healthy appearing and comfortable Orientation/consciousness: oriented to person, oriented to place and oriented to time HEENT Head: Yes normal to inspection Neck Neck: Yes normal visual inspection Carotids: no bruits Chest Chest palpation & inspection: normal inspection of the chest Resp Effort & Inspection: normal respiratory effort and able to speak in complete sentences Auscultation: clear to auscultation bilaterally, no crackles, no rales, no rhonchi and no wheezes Cardio Rate: regular rate Rhythm: regular rhythm Heart sounds: S1 normal heart sound present and S2 normal heart sound present Bruits: no carotid bruits Peripheral pulses: Peripheral pulses 2+ throughout GI Inspection: Yes normal to inspection Skin Wounds: no wounds Hair: normal Neuro General: oriented to person, oriented to place and oriented to time Cranial nerves: Yes CN's II-XII intact bilaterally and Yes Normal hearing present Cognition (Neuro): normal cognition Motor exam (neuro): 5/5 motor strength present throughout Extrem Other: Left upper extremity palpable brachial radial ulnar pulses General: No clubbing, No cyanosis and No edema Psych Appearance: grossly normal Mental Status: mental status grossly normal Speech and movement: Normal speech and movement present Results Reviewed Results Reviewed: Bedside ultrasound was done. He does have small cephalic vein but it appears that his basilic vein is fairly reasonable size. Assessment & Plan Assessment & Plan (1) ESRD (end stage renal disease): Code(s): N18.6 - End stage renal disease Category: Medical Plan: In short patient is dialysis dependent end-stage renal disease. Due to his prior history it would be ideal to get him a [place] arteriovenous fistula. The patient will require left upper extremity fistula creation. Risks benefits complications of the procedure were discussed in detail with the patient. He understood and consented. I did spend a fair amount of time educating and discussing the importance of compliance. He did demonstrated clear understanding. We will forego formal vein mapping try to book him as soon as possible. Thank you for allowing us to assist in his care. If there are any questions or concerns please do not hesitate to contact us Coding Level of Care Code Est Pt Level 4 (69535) Diagnoses ESRD (end stage renal disease) N18.6
--- OUTSIDE RECORDS SUMMARY | 2025-08-09 10:08 | XMS_ITS | Encounter Summary ---
Author Organization [employer] Address [address] [facility] 7t [place] [address] Care Team Providers Care Sap Bobj Developer Name Role Phone Unavailable Primary Care Provider Unavailabl e Reason for Visit * Reason Comments Med Refill Encounter Details Date Type Department Care Team (Late st Contact Info) Description 07/25/2025 Refill [facility]EDS [address] [place] [address] Cristina Stover MD 230 [place] [address] Type 2 diabetes mellitus with stage 3 [...]
--- OUTSIDE RECORDS SUMMARY | 2025-08-09 10:08 | XMS_ITS | Encounter Summary ---
Author Organization [facility] Address [address] [facility] [address] [place] [address] Phone Care Team Providers Care Check Writer Name Role Phone Brimley, Cristina Montano MD Primary Care Provider U navailable Reason for Visit * Reason Comments Med Refill Encounter Details Date Type Department Care Team (Late st Contact Info) Description 01/04/2022 Refill [facility] [address] [facility] [address] [place] [address] Rick Hurd MD [address] [facility] [address] [place] [address] Social History Tobacco Use Types [...] on filedocumented in this encounter Care Teams Check Writer Relationship Specialty Start Date End Date Brimley, Cristina Montano MD PCP - General 11/13/20 documented as of this encounter
--- OUTSIDE RECORDS SUMMARY | 2025-08-09 10:08 | XMS_ITS | Encounter Summary ---
Author Organization [employer] Address 75 [facility] 7t [place] [address] Care Team Providers Care Spanish Interpreter Name Role Phone Unavailable Primary Care Provider Unavailabl e Reason for Visit * Reason Comments Med Refill Encounter Details Date Type Department Care Team (Late st Contact Info) Description 07/27/2025 Refill [facility] [address] [place] [address] Cristina Stover MD [address] [place] [address] Type 2 diabetes mellitus with stage 3 [...] a refill for FREESTYLE LITE test strip. [employer] Supervisor advised he not a pt we us as he has not been seen since 07/14/2023 and that he need to establish care again in regard of him to gethis test strip. [employer] Supervisor toñito pt twice, no responded documented in [...]
--- OUTSIDE RECORDS SUMMARY | 2025-08-09 10:08 | XMS_ITS | Encounter Summary ---
Author Organization [employer] Address 75 [facility] 7t [place] [address] Care Team Providers Care Translator Interpreter Name Role Phone Unavailable Primary Care Provider Unavailabl e Reason for Visit * Reason Comments Med Refill Encounter Details Date Type Department Care Team (Late st Contact Info) Description 06/13/2025 Refill [facility] [address] [place] [address] Araseli Rucker, ANP [address] [place] [address] Other insomnia Social History Tobacco Use Types [...]
--- OUTSIDE RECORDS SUMMARY | 2025-08-09 10:08 | XMS_ITS | Encounter Summary ---
Author Organization [employer] Address 75 [facility] 7t [place] [address] Care Team Providers Care Access Control Officer Name Role Phone Unavailable Primary Care Provider Unavailabl e Reason for Visit * Reason Comments Med Refill Encounter Details Date Type Department Care Team (Late st Contact Info) Description 01/26/2025 Refill [facility]S [address] [place] [address] Araseli Rucker, ANP [address] [place] [address] Other insomnia Social History Tobacco Use Types [...]
--- OUTSIDE RECORDS SUMMARY | 2025-08-09 10:08 | XMS_ITS | Encounter Summary ---
Author Organization [employer] Address 75 [facility] 7t [place] [address] Care Team Providers Care Cook Tortilla Name Role Phone Unavailable Primary Care Provider Unavailabl e Encounter Details Date Type Department Care Team (Late st Contact Info) Description 07/29/2025 Telephone [facility] MEDICINE [address] [place] [address] Kyle Mitchell MD 230 [place] [address] Social History Tobacco Use Types Packs/Day Years [...] Miscellaneous Notes * Telephone Encounter - Erick Espinosa - 07/29/2025 3:45 PM EDT TC placed to pt to help schedule TP visit . Also needing to update demographic information. ( Very address ) documented in this encounter Plan of Treatment Not on file documented as of this encounter Visit Diagnoses Not on filedocumented in this encounter
--- OUTSIDE RECORDS SUMMARY | 2025-08-09 10:08 | XMS_ITS | Encounter Summary ---
Author Organization [facility] Address [address] [place] [address] Phone Care Team Providers Care Med Admin Name Role Phone [place], Cristina Montano MD Primary Care Provider Randall meena Encounter Details Date Type Department Care Team (Late st Contact Info) Description 04/17/2022 Telephone [facility] [address] [place] [address] Rick Hurd MD [address] [facility] [address] [place] [address] Social History Tobacco Use Types [...] that process. Please call her back at [phone] documented in this encounter Plan of Treatment Not on file documented as of this encounter Visit Diagnoses Not on filedocumented in this encounter Care Teams Med Admin Relationship Specialty Start Date End Date Cristina Stover MD PCP - General 11/13/20 documented as of this encounter
--- OUTSIDE RECORDS SUMMARY | 2025-08-09 10:09 | XMS_ITS | Clinical Summary ---
Author Organization [facility] Address [address] [facility] [address] [place] [address] Phone Care Team Providers Care Technical Support Manager Name Role Phone Cristina Stover MD [...] 11/12/2018, 07/25/2016, Additional history exists COVID-19 VACCINE (2024- season) 2025 HEPATITIS A VACCINES Aged Out [...] EDT) SODIUM 127(L) 133 - 146 mmol/L [facility] CHLORIDE 92(L) 96 - 108 mmol/L [facility] POTASSIUM 5.6(H) 3.3 - 5.1 mmol/L [facility] Comment:Specimen slightly he molyzed, result may be falsely elevated. CO2 27 21 - 35 mmol/L [facility] BUN 40(H) 6 - 19 mg/dL [facility] CREATININE 3.30(H) 0.5 - 1.5 mg/dL [facility] GLUCOSE 325(H) 70 - 99 mg/dL [facility] CALCIUM 9.7 8.4 - 10.3 mg/dL [facility] EGFR 23(L) >59 mL/min/1.7 3m2 [facility] Comment:Estimated glomerular filtration rate calculated using the CKD-EPI refit equation. ANION GAP 14 10 - 20 mmol/L [facility] Blood 02/16/2022 5:52 PM EDT 02/16/2022 6:00 PM EDT us Jeny Feldman MD LAB BLOOD ORDERABLES Final R esult [address] [address] from Last 3 Months or Most Recently Relevant to Health Maintenance Insurance C3 ACO C3 ACO C3 ACO C3 ACO C3 ACO C3 ACO C3 ACO C3 ACO C3 ACO Care Teams Technical Support Manager Relationship Specialty Start Date End Date [place], Cristina Petersen MD [address] [place] [address] PCP - General 08/19/17 Additional Source Comments The information contained in this document represents components of the legal health record. It is not the complete legal health record.[facility]
--- OUTSIDE RECORDS SUMMARY | 2025-08-09 10:09 | XMS_ITS | Encounter Summary ---
Author Organization [employer] Address [address] [facility] 7t [place] [address] Care Team Providers Care Resource Teacher Name Role Phone Cristina Stover MD Primary Care Provider +1- [phone] Cristina Stover MD Primary Care Provider +1- [phone] Cristina Stover MD Primary Care Provider +1- [phone] Encounter Details Date Type Department Care Team (Late st Contact Info) Description 01/17/2023 Orders Only [facility] & PEDS [address] [place], [place] [id number] Nay Benitez LPN Social History Tobacco Use [...] on filedocumented in this encounter Care Teams Resource Teacher Relationship Specialty Start Date End Date Cristina Stover MD [address] [place] [address] PCP - General Family Medicine 05/20/14 12/30/23 Cristina Stover MD [address] [place] [address] PCP - General Family Medicine 01/06/24 08/29/24 Cristina Stover MD 230 [place] [address] PCP - General Family Medicine 11/29/24 12/20/24 documented as of this encounter
--- OUTSIDE RECORDS SUMMARY | 2025-08-09 10:09 | XMS_ITS | Encounter Summary ---
Author Organization [employer] Address [address] [facility] 7 [place] [address] Care Team Providers Care Seat Mender Name Role Phone Cristina Stover MD Primary Care Provider +1- [phone] Cristina Stover MD Primary Care Provider +1- [phone] Cristina Stover MD Primary Care Provider +1- [phone] Reason for Visit * Reason Comments Med Refill Encounter Details Date Type Department Care Team ([facility] st Contact Info) Description 05/26/2023 Refill [facility] [address] [place] [address] Araseli Rucker ANP [address] [place] [address] Social History Tobacco Use Types Packs/Day Years [...] on filedocumented in this encounter Care Teams Seat Mender Relationship Specialty Start Date End Date Cristina Stover MD [address] [place] [address] PCP - General Family Medicine 05/20/14 12/30/23 Cristina Stover MD [address] [place] [address] PCP - General Family Medicine 01/06/24 08/29/24 Cristina Stover MD [address] [place] [address] PCP - General Family Medicine 11/29/24 12/20/24 documented as of this encounter
--- OUTSIDE RECORDS SUMMARY | 2025-08-09 10:09 | XMS_ITS | Encounter Summary ---
Author Organization [employer] Address 75 [facility] 7t [place] [address] Care Team Providers Care Flow Worker Name Role Phone Unavailable Primary Care Provider Unavailabl e Reason for Visit * Reason Comments Med Refill Encounter Details Date Type Department Care Team (Late st Contact Info) Description 04/06/2025 Refill [facility] [address] [place] [address] Cristina Stover MD 230 [place] [address] Social History Tobacco Use Types Packs/Day Years Used Date Smoking Tobacco: Every Day Cigarettes Smokeless Tobacco: Never Alcohol Use Standard Drinks/Week Comments Never 0 (1 standard drink = 0.6 oz pur e alcohol) Housing Stability Answer Date Recorded What is your housing situation today? I have eric adbi 08/18/[address] you li [...]
--- OUTSIDE RECORDS SUMMARY | 2025-08-09 10:09 | XMS_ITS | Encounter Summary ---
Author Organization [employer] Address 75 [facility] 7t [place] [address] Care Team Providers Care Bell Attendant Name Role Phone Cristina Stover MD Primary Care Provider +1- [phone] Cristina Stover MD Primary Care Provider +1- [phone] Cristina Stover MD Primary Care Provider +1- [phone] Encounter Details Date Type Department Care Team (Late st Contact Info) Description 10/17/2023 Telephone [facility] MED[facility] [address] [place], [place] [phone] Cristina Stover MD [address] [place], [place] [phone] Social History Tobacco Use Types Packs/Day Years [...] mom of pt requesting Phone number of [facility] wheel chair clinic. PCP DR. Stover documented in this encounter Plan of Treatment Not on file documented as of this encounter Visit Diagnoses Not on filedocumented in this encounter Care Teams Bell Attendant Relationship Specialty Start Date End Date Cristina Stover MD [address] [place] [address] PCP - General Family Medicine 05/20/14 12/30/23 Cristina Stover MD [address] [place] [address] PCP - General Family Medicine 01/06/24 08/29/24 Cristina Stover MD [address] [place] [address] PCP - General Family Medicine 11/29/24 12/20/24 documented as of this encounter
--- OUTSIDE RECORDS SUMMARY | 2025-08-09 10:09 | XMS_ITS | Encounter Summary ---
Author Organization [employer] Address [address] [facility] 7 [place] [address] Care Team Providers Care Retail Administrative Assistant Name Role Phone Cristina Stover MD Primary Care Provider +1- [phone] Cristina Stover MD Primary Care Provider +1- [phone] Cristina Stover MD Primary Care Provider +1- [phone] Reason for Visit * Reason Onset Date Comments Hospital Follow-up 11/26/2023 Encounter Details Date Type Department Care Team ([facility] st Contact Info) Description 11/26/2023 Telephone [facility] [address] [place], [place] [phone] Cristina Stover MD [address] [place], [place] [phone] Hospital Follow-up Social History Tobacco Use Types [...] from pt requesting a HDF appt. Hospital: [facility] Date of admission: 11/16/2023 Discharge date: 11/25/2023 Diagnosed: Surgery (amputation) documented in this encounter Plan of Treatment Not on file documented as of this encounter Visit Diagnoses Not on filedocumented in this encounter Care Teams Retail Administrative Assistant Relationship Specialty Start Date End Date Cristina Stover MD [address] [place] [phone] PCP - General Family Medicine 05/20/14 12/30/23 Cristina Stover MD [address] [place] [id number] PCP - General Family Medicine 01/06/24 08/29/24 Cristina Stover MD [address] [place] [phone] PCP - General Family Medicine 11/29/24 12/20/24 documented as of this encounter
--- OUTSIDE RECORDS SUMMARY | 2025-08-09 10:09 | XMS_ITS | Encounter Summary ---
Author Organization [employer] Address [address] [facility] [address], [place] [address] Care Team Providers Care Direct Response Consultant Name Role Phone Cristina Stover MD Primary Care Provider +1- [phone] Cristina Stover MD Primary Care Provider +1- [phone] Cristina Stover MD Primary Care Provider +1- [phone] Encounter Details Date Type Department Care Team (Late st Contact Info) Description 06/04/[address] [facility] [address] [place], [place] [phone] Cristina Stover MD [address] [place] [address] Uncomplicated opioid dependence (CMS/HCC); Polysubstance abuse (CMS/HCC); [...] documented in this encounter Care Teams Direct Response Consultant Relationship Specialty Start Date End Date Cristina Stover MD [address] [place] [address] PCP - General Family Medicine 05/20/14 12/30/23 Cristina Stover MD [address] [place] [address] PCP - General Family Medicine 01/06/24 08/29/24 Cristina Stover MD [address] [place] [address] PCP - General Family Medicine 11/29/24 12/20/24 documented as of this encounter
--- OUTSIDE RECORDS SUMMARY | 2025-08-09 10:09 | XMS_ITS | Clinical Summary ---
Author Organization [facility] Address [address] [place] [address] Phone Care Team Providers Care Fisher Trammel Net Name Role Phone Cristina Stover MD Primary [...] status 06/04/2023 Overview (01/23/2024): Admitted 05/04/23 to [facility] for encephalopathy thought to be cocaine related. he was discharged against medical advice. Seen in [facility] 05/09/23 with repot of myoclonic spasms. Urine drug screen positive for opiates, fentanyl and cocaine.seen 05/11/23 in [facility] for continued abnormal movents and discharged home. Admitted to [facility] 05/12/23-05/14/23 for possible seizure activity. He [...] Vaccine: 50+ Years Discontinued 6 Insurance Medicaid [place] Care Teams Fisher Tr[employer]el Net Relationship Specialty Start Date End Date Maynard, Cristina Montano MD PCP - General 11/13/20
--- OUTSIDE RECORDS SUMMARY | 2025-08-09 10:09 | XMS_ITS | Encounter Summary ---
Author Organization [facility] Address [address] [place] [phone] Phone Care Team Providers Care Termite Renewal Inspector Name Role Phone Ck, Cristina Petersen MD Primary Care Provi jason Encounter Details Date Type Department Care Team (Late st Contact Info) Description 02/16/2022 Procedure Pass [facility], Ct Scan - [address] [address] Social History Tobacco Use Types Packs/Day Years [...] 4:52 PM EDT Alan Gutiérrez RN * [place] Suicide Severity Rating Scale (Screener/Recent Self-Report) Question Answer Date of Assessment Author 1. Wish to be (Past 1 Month) No 022 4:52 PM EDT Alan Gutiérrez RN 2. Non-Specific Active Suici krunal Thoughts (Past 1 Month) No 02/16/2022 4:52 PM EDT Alan Gutiérrez, JOVITA 6. Suicidal Behavior (Lifetime) No 4:52 PM EDT Alan Gutiérrez, JOVITA documented as of this encounter Plan of Treatment Not on file documented as of this encounter Visit Diagnoses Not on filedocumented in this encounter Care Teams Termite Renewal Inspector Relationship Specialty Start Date End Date Ck, Cristina Petersen MD [address] [place] [address] PCP - General 08/19/17 documented as of this encounter Additional Source Comments The information contained in this document represents components of the legal health record. It is not the complete legal health record.[facility]
--- OUTSIDE RECORDS SUMMARY | 2025-08-09 10:09 | XMS_ITS | Encounter Summary ---
Author Organization [employer] Address [address] [place] [address] Care Team Providers Care Director Of Staff Development Name Role Phone Cristina Stover MD Primary Care Provider +1- [phone] Cristina Stover MD Primary Care Provider +1- [phone] Cristina Stover MD Primary Care Provider +1- [phone] Reason for Visit * Reason Onset Date Comments PT1 05/30/2023 Encounter Details Date Type Department Care Team (Late st Contact Info) Description 05/30/2023 Telephone [facility] [address] [place] [phone] Cristina Stover MD [address] [place] [phone] PT1 Social History Tobacco Use Types Packs/Day [...] Date: 06/02/23 Time: 9 am address: [address] [place] [address] specialty: hospital f/u # visits: director of rehabilitation: n/a Wheelchair: yes documented in this encounter Plan of Treatment Not on file documented as of this encounter Visit Diagnoses Not on filedocumented in this encounter Care Teams Director Of Staff Development Relationship Specialty Start Date End Date Cristina Stover MD [address] [place] [address] PCP - General Family Medicine 05/20/14 12/30/23 rCistina Stover MD [address] [place] [address] PCP - General Family Medicine 01/06/24 08/29/24 Cristina Stover MD [address] [place] [address] PCP - General Family Medicine 11/29/24 12/20/24 documented as of this encounter
--- OUTSIDE RECORDS SUMMARY | 2025-08-09 10:09 | XMS_ITS | Clinical Summary ---
Author Organization [employer] Address [address] [place] [address] Care Team Providers Care Scientific Investigator Name Role Phone Unavailable Primary Care Provider [...] unspecified whether stage 3a or 3b CKD ([facility]) TEST BLOOD SUGAR THREE TIMES DAILY 100 strip 11 4 Active TRUEplus Lancets 33G miscIndications:D iabetes mellitus, stable ([facility]) TEST BLOOD SUGAR THREE TIMES DAILY 100 [...] 08/01/2025 Acidosis 08/01/2025 Acute CVA (cerebrovascular accident) ([facility]) 0 08/01/2025 Acute hypokalemia 08/01/2025 Acute hypoxemic respiratory failure ([facility]) Amputation of toe of right foot 08/01/2025 Anasarca 08/01/2025 Anemia in chronic kidney disease (CKD) Anemia 08/01/2025 Bacteremia 08/01/2025 Cardiomyopathy 08/01/2025 Callus of foot 08/01/2025 Cellulitis 08/01/2025 Empyema ([facility]) 08/01/2025 Cocaine intoxication ([facility]) 08/01/2025 Confusion 08/01/2025 Constipation 08/01/2025 COPD exacerbation ([facility]) 08/01/2025 Decubitus ulcer 08/01/2025 Dehydration 08/01/2025 Diabetic skin ulcer 08/01/2025 Diabetic ulcer of right foot 08/01/2025 Diabetic wet gangrene of the foot 08/01/2025 Elevated troponin 08/01/2025 End stage renal failure on dialysis ([facility]) Foot osteomyelitis, left ([facility]) 08/01/2025 History of endocarditis 08/01/2025 Hyperglycemia 08/01/2025 Hyperphosphatemia 08/01/2025 Hypocalcemia 08/01/2025 Leukocytosis 08/01/2025 MRSA bacteremia 08/01/2025 Myoclonic disorder 08/01/2025 Necrotic eschar ([facility]) 08/01/2025 Need for acute hemodialysis 08/01/2025 Open wound 08/01/2025 Opiate withdrawal ([facility]) 08/01/2025 Panic attack 08/01/2025 Pericardial effusion 08/01/2025 Pleural effusion, bilateral 08/01/2025 Pseudohyponatremia 08/01/2025 Removal of staple 08/01/2025 Sepsis ([facility]) 08/01/2025 Seizure ([facility]) 08/01/2025 Syncope 08/01/2025 Toxic metabolic encephalopathy 08/01/2025 Volume overload 08/01/2025 Paroxysmal atrial flutter ([facility]) 08/01/2025 Hyperglycemia due to type 2 diabetes mellitus HTN (hypertension) 08/01/2025 Acute renal failure 08/01/2025 Chronic kidney failure 08/01/2025 CKD (chronic kidney disease) stage 3, GFR 30-59 ml/min ([facility]) 08/01/2025 Type 2 diabetes mellitus 08/01/2025 Opioid use disorder, severe, dependence ([facility] ) 08/01/2025 Atrial flutter ([facility]) 10/05/2024 Overview (10/05/2024): -dx in [facility] 09/2024 Primary insomnia 07/14/2023 Assessment & Plan (07/14/2023 10:26 PM EDT): Start trazodone Counseled re tight control of HTN, DM and avoid recreational drug use. FU with PCP Chronic renal disease, stage IV ([facility]) 2022 Overview (06/23/2023): -With significant proteinuria due [...] home is Coronary artery disease invo lving apache coronary artery of apache heart without angina pectoris 06/23/2023 Osteomyelitis 06/23/2023 Tobacco dependence 06/23/2023 Overview (06/23/2023): -motivational interviewing done PAD (peripheral artery disease) 06/23/2023 Assessment & Plan (07/14/2023 10:32 PM EDT): Sec to DM, HTN, smoking, cocaine use. 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 Has fu appt [...] (08/01/2025): -motivational interviewing done Uncomplicated opioid dependence ([facility] 2022 Polysubstance abuse 06/04/2023 Assessment & Plan [...] with his mother) . Right BKA infection ([facility]) 06/04/2023 Overview (06/23/2023): Right foot partal amputation 04/18/2023 due to right foot gangreen with osteomyelitis. Dischargted 05/01/23 with ertapenem via PICC line for osteomyelitis. [facility]ed to [facility] with AMS and underwent right BKA 05/2023 Assessment & Plan (07/14/2023 10:33 PM EDT): Right BKA stump Is healing properly, urged to fu with vascular surgery. Will need PT /OT eval for right leg prosthesis fitting I will rx a transport wheelchair for mobility Altered mental status 06/04/2023 Overview (06/04/2023): Admitted 05/04/23 to [facility] for encephalopathy thought to be cocaine related. he was discharged against medical advice. Seen in [place] [facility] 05/09/23 with repot of myoclonic spasms. Urine drug screen positive for opiates, fentanyl and cocaine.seen 05/11/23 in [facility] for continued abnormal movents and discharged home. Admitted to [facility] 05/12/23-05/14/23 for possible seizure activity. He [...] 4w. Gastroesophageal reflux disease 05/04/2012 Morbid obesity ([facility]) 05/04/2012 Obstructive sleep apnea syndrome 05/04/2012 Overview [...] 03/30/2021 06/23/2023 Stage 3 chronic kidney disease ([facility]) 03/30/2021 06/23/2023 Encounters Date Type Department Care Team Description 08/02/2025 Telephone [facility] [address] [place] [address] Kadie Guzmán MD No Show 08/01/[address] [facility] [address] [place] [address] Ivet Zhang MA chart prep 07/29/2025 Telephone [facility] [address] [place] [address] Kyle Mitchell MD 07/27/[address] [facility] [address] [place] [address] Cristina Stover MD Type 2 diabetes mellitus with stage 3 chronic kidney disease, with long-term current use of insulin, unspecified whether stage 3a or 3b CKD ([facility]); Diabetes mellitus, stable ([facility]) 07/25/[address] [facility] [address] [place] [address] Cristina Stover MD Type 2 diabetes mellitus with stage 3 chronic kidney disease, with long-term current use of insulin, unspecified whether stage 3a or 3b CKD ([facility]) 07/22/2025 Orders Only [facility] External Provider, [facility] 06/13/2025 Refill [facility] [address] [place] [address] Araseli Rucker, SANDRA Other insomnia 05/09/2025 Telephone [facility] [address] [place] [phone] Yajaira Sykes, RN NEEDS PROVIDER APPT 05/09/2025 Orders Only GENERIC EXTERNAL DATA DEPARTMENT Provider, Generic External Data from Last 3 Months Immunizations Immunization Administration Dates Next Due Hep B, adult 01/10/2025, 5,11/12/2018,07/25,12/28/2014 IPV 05/10/1984, 9,1978,08/21 Influenza injectable quadriv alent [...] Td or Tdap) 12/28/2024 12/28/2014 COVID-19 Vaccine ( - season) 2025 Influenza Vaccine (#1) 2025 4, 08/05/2019, 11/12/2018, Additional history exists Tobacco Screening [...] Associated Diagnosis Comments SED RATE BY MODIFIED WALESKAERGREN Routine 07/22/2025 1:45 PM EDT C-REACTIVE PROTEIN [...] disease, with long-term current use of insulin ([facility] ZZZ HISTORICAL MICROALBUMIN, RANDOM Routine 12/13/2019 1:40 PM EST HM HEPATITIS C ANTIBODY Routine 06/22/2019 HM HIV 1/2 ANTIGEN AND ANTIBODY Routine 06/22/2019 from Last 3 Months or Most Recently Relevant to Health Maintenance Results * Blood Culture (First) (07/22/2025 1:45 PM EDT) Blood Venous blood specimen / Unknown 07/22/2025 1:45 PM EDT 07/22/2025 1:50 PM EDT Comment:Blood Narrative [facility] - 07/27/2025 3:50 PM EDT Blood Culture (First) No growth after 5 days. Specimen Source: Blood us Generic External Data Provider LAB MICROBIOLOGY - GENERAL ORDERABLES Final Result [facility] [address] [place] [address] [phone] * (ABNORMAL) CBC auto differential (07/22/2025 1:45 PM EDT) Only the most recent of2 resultswithin the time period is included. White Blood Count 8.9 4.8 - 10.8 X10*3/uL [facility] Red Blood Count 3.78(L) 4.60 - 5.80 X10*6/uL [facility] Hemoglobin 11.1(L) 14.0 - 18.0 g/dl [facility] Hematocrit 34.2(L) 42.0 - 52.0 % [facility] Mean Corpuscular Volume 90.5 80.0 - 98.0 fL [facility] Mean Corpuscular Hemoglobin 29.4 27.0 - 33.0 pg [facility] Mean Corpuscular HGB Conc 32.5 31.0 - 36.0 g/dl [facility] Red Cell Distribution Width 13.4 11.0 - 16.0 % [facility] Platelet Count 255 160 - 400 X10*3/uL [facility] Mean Platelet Volume 10.5 9.4 - 12.4 fL [facility] Neutrophils Percent Auto 74.4(H) 45 - 73 % [facility] Imm Gran Pct Auto 0.3 0.0 - 0.4 % [facility] Lymphocytes Percent Auto 16.4(L) 20 - 40 % [facility] Monocytes Percent Auto 6.6 2 - 11 % [facility] Eosinophils Percent Auto 2.0 0 - 4 % [facility] Basophils Percent Auto 0.3 0 - 2 % [facility] NRBC Pct Auto 0.0 0.0 - 0.2 /100WBC [facility] Neutrophils Absolute Auto 6.6 2.0 - 8.3 x10*3/uL [facility] Imm Gran Abs Auto 0.03 0.00 - 0.03 X10*3/uL [facility] Lymphocytes Absolute Auto 1.5 1.2 - 4.9 X10*3/uL [facility] Monocytes Absolute Auto 0.6 0.1 - 1.2 X10*3/uL [facility] Eosinophils Absolute Auto 0.2 0.0 - 0.4 X10*3/uL [facility] Basophils Absolute Auto 0.0 0.0 - 0.2 X10*3/uL [facility] NRBC Abs Auto 0.000 0.0 - 0.012 X10*3/uL [facility] 07/22/2025 1:45 PM EDT 07/22/2025 1:50 PM EDT us Generic External Data Provider LAB BLOOD ORDERAB LES Final Result Performing Organization Address [facility] Co de Phone Number [facility] [address] [place] [phone] * (ABNORMAL) Sed Rate by Modified Alex (07/22/2025 1:45 PM EDT) Erythrocyte Sedimentation Rate 88(H) 0 - 15 MM/HR [facility] Comment:Patients with polycy themia and many hemoglobin abnormalitiesmay have depressed sed rates whereas patients with anemiamay have elevated sed rates. 07/22/2025 1:45 PM EDT 07/22/2025 1:50 PM EDT us Generic External Data Provider LAB BLOOD ORDERAB LES Final Result Performing Organization Address [facility]/ZIP Co de Phone Number [facility] [address] [place] [phone] * (ABNORMAL) C-reactive Protein (07/22/2025 1:45 PM EDT) C Reactive Protein 12.29(H) < or = 0.50 mg/dL [facility] 07/22/2025 1:45 PM EDT 07/22/2025 1:50 PM EDT us Generic External Data Provider LAB BLOOD ORDERAB LES Final Result [facility] [address] [place] [address] [phone] * (ABNORMAL) Comprehensive Metabolic Panel (07/22/2025 1:45 PM EDT) Only the most recent of2 resultswithin the time period is included. Sodium 133(L) 135 - 145 mmol/L [facility] Potassium 3.7 3.3 - 5.1 mmol/L [facility] Chloride 96 96 - 108 mmol/L [facility] Carbon Dioxide 29 22 - 29 mmol/L [facility] Anion Gap 12 12 - 20 [facility] Urea Nitrogen (BUN) 26(H) 9 - 16 mg/dL [facility] Creatinine, Serum 4.41(HH) 0.5 - 1.4 mg/dL [facility] Comment:Critical value for C REAT: Results called to and read jere HERNDON Person calling: JOCELIN Date: 07/22/25 Time: 1410 Creatinine Clr Calc Pharmacy 20.7 [facility] Comment:eGFR (calculated fro m the MDRD study equation) and eCrCl(calculated from the Cockcroft-Gault equation) are based ondifferent parameters and may not yield comparable results.If eCrCl result is absurd, please check patient'sheight/weight. Estimated Glomerular Filt Rate 14 [facility] Comment:Chronic Kidney Disea se: Estimated GFR < 60 mL/min/[id number] Kidney Disease: Estimated GFR < 15 mL/min/1.73m2 Glucose 203(H) 60 - 115 mg/dL [facility] Calcium 8.3(L) 8.4 - 10.2 mg/dL [facility] Bilirubin, Total 0.3 0.0 - 1.0 mg/dL [facility] Aspartate Amino Transferase 28 5 - 37 U/L [facility] Alanine Aminotransferase <6 0 - 40 U/L [facility] Total Protein 8.3(H) 6.5 - 8.0 g/dL [facility] Albumin Level 3.0(L) 3.5 - 5.0 g/dL [facility] Alkaline Phosphatase 79 39 - 117 U/L [facility] 07/22/2025 1:45 PM EDT 07/22/2025 1:50 PM EDT us Generic External Data Provider LAB BLOOD ORDERAB LES Final Result Performing Organization Address City/State/[facility] Co de Phone Number [facility] [address] [place] [phone] * XR Tibia Fibula 2 Views Right (07/22/2025 1:15 PM EDT) Anatomical Region Laterality Modality Lower Extremities, Lower Leg Right Rad iographic Imaging 07/22/2025 1:15 PM EDT Narrative 07/22/2025 1:47 PM EDT [address] [address] XRay Report Signed with Ruiz Patient: Deandre Luong MR#: [id number] 3 : 1980 Acct:[id number] Age/Sex: 45 / M ADM Date: 07/22/25 Loc: HO.ED Attending Dr: Ordering Physician: Melissa Waters NP Date of Service: 07/22/25 Procedure(s): XR tibia fibula RT 2V Accession Number(s): [id number] cc: [facility]; Melissa Waters NP Reason for Exam: wound [...] 07/22/25 1345 DD/ 1315 TD/TT: 07/22/25 1320 Health And Safety Representative: Procedure Note Donotuseinterpreter, Image - 07/22/[address] [address] XRay Report Signed with Addenda Patient: Deandre Luong MMR#: [id number] 3 : 1980Acct:[id number] Age/Sex: 45 / MADM Date: 07/22/25 Loc: HO.ED Attending Dr: Ordering Physician: Melissa Waters NP Date of Service: 07/22/25 Procedure(s): XR tibia fibula RT 2V Accession Number(s): [id number] cc: [facility]; Melissa Waters NP Reason for Exam: wound [...] 07/22/25 1345 DD/ 1315 TD/TT: 07/22/25 1320 Health And Safety Representative: [facility] External Provider IMG XR PROCEDURES Edited Result - Final * Blood Culture (Second) (07/22/2025 12:56 PM EDT) Blood Venous blood specimen / Unknown 07/22/2025 12:56 PM EDT 07/23/2025 9:21 AM EDT Comment:Blood Narrative [facility] - 07/23/2025 9:22 AM EDT Blood Culture (Second) Test not performed NO SPECIMEN RECEIVED. PATIENT DEPARTED ED Specimen Source: Blood Generic External Data Provider LAB MICROBIOLOGY - GENERAL ORDERABLES Final Result Performing Organization Address City/State/[facility] Co de Phone Number [facility] [address] [place] [phone] * XR Chest 1 View (05/09/2025 8:40 AM EDT) Anatomical Region Laterality Modality Chest Radiographic Hilda ging 05/09/2025 8:40 AM EDT Narrative 05/09/2025 9:01 AM EDT [address] [address] XRay Report Signed Patient: Deandre Luong MR#: [id number] 3 : 1980 Acct:[id number] Age/Sex: 44 / M ADM Date: 05/09/25 Loc: HO.ED Attending Dr: Ordering Physician: Jose Samuel MD Date of Service: 05/09/25 Procedure(s): XR chest 1V Accession Number(s): [id number] cc: Jose Samuel MD; [facility] EXAMINATION: XR CHEST 1 VIEW HISTORY: SOB [...] signed by García Loza MD in OV> 05/09/2558 DD/ 9 TD/TT: 05/09/25 0849 Health And Safety Representative: Procedure Note Donotuseinterpreter, Image - 05/09/2025 [place] [address] XRay Report Signed Patient: Deandre Luong [facility]#: [id number] 3 : 1980Acct:[id number] Age/Sex: 44 / MADM Date: 05/09/25 Loc: HO.ED Attending Dr: Ordering Physician: Jose Samuel MD Date of Service: 05/09/25 Procedure(s): XR chest 1V Accession Number(s): [id number] cc: Jose Samuel MD; [facility] EXAMINATION: XR CHEST 1 VIEW HISTORY: SOB [...] signed by García Loza MD in OV> 05/09/2558 DD/ 0840 TD/TT: 05/09/25 0849 Health And Safety Representative: [facility] External Provider IMG XR PROCEDURES Final Result * (ABNORMAL) High Sensitivity Troponin I (05/09/2025 7:36 AM EDT) Only the most recent of2 resultswithin the time period is included. Pathologist [facility] TROPONIN I HIGH SENSITIVITY 2,867.7(H H) <3.5 - 35.0 ng/L [facility] Comment:Critical value for H S-TnI: Results called to and read caroly: HAZEL Person calling: JOCELIN Date: 05/09/25 Time: PrivateCore high sensitivity Troponin-I results should beused in conjunction with other diagnostic information suchas ECG, clinical observations and information, and patientsymptoms to aid in the diagnosis of [place]. 05/09/2025 7:36 AM EDT 05/09/2025 7:43 AM EDT Generic External Data Provider LAB BLOOD ORDERAB LES Final Result Performing Organization Address City/[facility]/ZIP Co de Phone Number [facility] [address] [place] [phone] * Glucose, Whole Blood (05/09/2025 7:10 AM EDT) [facility] Glucose, Whole Blood 108 60 - 115 mg/dL [facility] Comment:METER #: [id number] 05/09/2025 7:10 AM EDT 05/09/2025 7:33 AM EDT Generic External Data Provider LAB BLOOD ORDERAB LES Final Result Performing Organization Address City/[facility]/ZIP Co de Phone Number [facility] [address] [place] [phone] * (ABNORMAL) VENOUS BLOOD GAS (05/09/2025 6:03 AM EDT) Pathologist [facility] VBG pH 7.28(L) 7.32 - 7.43 [facility] Comment:METER #: [id number] additional_comment: CB CELIOB VBG PCO2 58 mmHg [facility] Comment:METER #: [id number] additional_comment: CB CELIOB VBG PO2 42 mmHg [facility] Comment:METER #: [id number] additional_comment: CB FRANCYELB VBG Base Excess 0.4 mmol/L [facility] Comment:METER #: [id number] additional_comment: CB CELIOB VBG HCO3 28(H) 22 - 26 mmol/L [facility] Comment:METER #: [id number] additional_comment: CB CELIOB O2 Sat, Homar 57.0 % [facility] Comment:METER #: [id number] additional_comment: ADAM MONTERO 05/09/2025 6:03 AM EDT 05/09/2025 6:08 AM EDT Generic External Data Provider LAB BLOOD ORDERAB LES Final Result Performing Organization Address [facility] Co de Phone Number [facility] [address] [place] [phone] * Ethanol (05/09/2025 5:54 AM EDT) [facility] ETHANOL (MG/DL) IN SER/PLAS <10 mg/dL [facility] Comment:Serum/plasma ethanol results are to be used formedical/treatment purposes only. 05/09/2025 5:54 AM EDT 05/09/2025 6:01 AM EDT us Generic External Data Provider LAB BLOOD ORDERAB LES Final Result Performing Organization Address [facility] Co de Phone Number [facility] [address] [place] [phone] * SARS-CoV-2 RNA, Influenza A/B, and RSV RNA, Ql NAAT (05/09/2025 5:54 AM EDT) Pathologist [facility] Influenza A PCR NEGATIVE Negative [facility] Influenza B PCR NEGATIVE Negative [facility] Resp Syncy Virus RNA Qual PCR NEGATIVE Negative [facility] SARS COV2 PCR NEGATIVE Negative [facility] Comment:All test results mus t [...] use by authorized laboratories.Testing performed on the BBEXpert utilizingreal-time RT-PCR.All SARS CoV2 and positive influenza A/B results arereported to [facility]. 05/09/2025 5:54 AM EDT 05/09/2025 6:01 AM EDT Generic External Data Provider LAB MICROBIOLOGY - GENERAL ORDERABLES Final Result Performing Organization Address [facility]/ZIP Co de Phone Number [facility] [address] [place] [address] [phone] * Lactic Acid (05/09/2025 5:54 AM EDT) [facility] Lactic Acid 1.0 0.5 - 2.0 mmol/L [facility] 05/09/2025 5:54 AM EDT 05/09/2025 6:01 AM EDT Generic External Data Provider LAB BLOOD ORDERAB LES Final Result Performing Organization Address [facility] Co de Phone Number [facility] [address] [place] [address] [phone] * (ABNORMAL) POCT A1C (07/14/2023 1:40 PM EDT) [facility] Hemoglobin A1C 11.1(A) 4.0 - 6.0 % QC Media Lot # [id number] Lot# Expiration Date [id number] Blood 07/14/2023 1:40 PM EDT Awilda Walters MD POINT OF CARE TEST ENTER /EDIT ORDERABLES Final Result * MICROALBUMIN, RANDOM (12/13/2019 1:40 PM EST) CREATININE, RANDOM URINE 32.74 MG/DL [facility] MICALB/CRE RATIO RANDOM URINE 2736.7 ug/mg cr [facility] Comment: Albumin/Creatinine Ratio Reference Ranges: Normal: < 30 ug/mg creatinine Microalbuminuria: 30 - 300 ug/mg creatinine Clinical Albuminuria: > 300 ug/mg creatinine MICROALBUMIN, RANDOM URINE 896.0 MG/L [facility] 12/13/2019 1:40 PM EST Rick Hurd MD HISTORICAL/NON ORDERABLE LABS Final Result Performing Organization Address City/State/[facility] Co de Phone Number [facility] [address] [place] [address] * HM Hepatitis C Antibody (06/22/2019) Hepatitis C Antibody Nonreactive Blood Hector Johnson MD HEALTH MAINTENANCE Final Result * HIV 1/2 Antigen and Antibody (06/22/2019) HIV Ag/Ab Nonreactive Hector Johnson MD HEALTH MAINTENANCE Final Result from Last 3 Months or Most Recently Relevant to Health Maintenance Insurance [facility] C[facility]
--- OUTSIDE RECORDS SUMMARY | 2025-08-09 10:09 | XMS_ITS | Encounter Summary ---
Author Organization [employer] Address [address] [place] [address] Care Team Providers Care Director Of Event Management Name Role Phone Cristina Stover MD Primary Care Provider +1- [phone] Cristina Stover MD Primary Care Provider +1- [phone] Cristina Stover MD Primary Care Provider +1- [phone] Encounter Details Date Type Department Care Team (Late st Contact Info) Description 03/20/2023 Orders Only [facility] [address] [place], [place] [id number] Nay Benitez LPN Social History Tobacco Use [...] in this encounter Care Teams Director Of Event Management Relationship Specialty Start Date End Date Cristina Stover MD [address] [place] [id number] PCP - General Family Medicine 05/20/14 12/30/23 Cristina Stover MD [address] [place] [id number] PCP - General Family Medicine 01/06/24 08/29/24 Cristina Stover MD [address] [place] [address] PCP - General Family Medicine 11/29/24 12/20/24 documented as of this encounter
--- OUTSIDE RECORDS SUMMARY | 2025-08-09 10:09 | XMS_ITS | Encounter Summary ---
Author Organization [employer] Address [address] [facility] [place] [address] Care Team Providers Care Hand Paint Mixer Name Role Phone Cristina Stover MD Primary Care Provider +1- [phone] Cristina Stover MD Primary Care Provider +1- [phone] Cristina Stover MD Primary Care Provider +1- [phone] Encounter Details Date Type Department Care Team (Late st Contact Info) Description 11/19/2022 Orders Only [facility] [address] [place], [place] [id number] Nay Benitez LPN Social History Tobacco Use [...] on filedocumented in this encounter Care Teams Hand Paint Mixer Relationship Specialty Start Date End Date Cristina Stover MD [address] [place] [id number] PCP - General Family Medicine 05/20/14 12/30/23 Cristina Stover MD [address] [place] [id number] PCP - General Family Medicine 01/06/24 08/29/24 Cristina Stover MD [address] [place] [address] PCP - General Family Medicine 11/29/24 12/20/24 documented as of this encounter
== END 2025-08-09 10:18 | disposition home or self-care (01) ==
LOC: HO.HVS 09:11
PROVIDERS: PCP Family Medicine; Referring Provider Family Medicine; Visit Provider Surgery Vascular Surgery
DX: N18.6 End stage renal disease (principal)
CPT/HCPCS: 99214

== ENCOUNTER → 2025-08-09 09:10 | Outpatient (BNVA) | payer MEDICAID, SELFPAY | PROVIDERS: PCP Family Medicine; Visit Provider Surgery Vascular Surgery | DX: Z01.818 Encounter for other preprocedural examination (principal); N18.6 End stage renal disease | CPT/HCPCS: 99212 ==

== ENCOUNTER → 2025-08-22 09:01 | Day surgery (SDC) | payer MEDICAID, SELFPAY ==
--- NOTE | 2025-08-19 11:00 | P.CONAN_ITS ---
HPI - Anesthesia Eval Consult details Narrative: 45 yr old male for AV fistula creation left s/p decubitus ulcer debridment 11/2024 with GA LMA size 4 Opioid use disorder, severe dependence: on suboxone, hospitalized for withdrawl 05/2025 ESRD on dialysis: M, W, F History of right BKA and left transmetatarsal amputation: he does not ambulate due to this. Paroxysmal atrial flutter/fibrillation: not on anticoagulation, not regularly taking beta clarence. Has no showed to several [facility] cardiology appts; Was seen May 2025 by cardiology while inpt for elevated troponins when testing positive for opiates, cocaine & fentanyl; Dr. Whitten felt pt had type 2 elevated troponin 2/2 cocaine use & hypoxia; no further work up was recommended. *He did have an echo 05/2025, see below. ORTEGA: unsure of CPAP status PMFSH Active Problems Active Problems: All Active Problems (Updated 08/19/25 @ 10:16 by Ninfa Carroll RN) ESRD (end stage renal disease) (Acute) Open wound (Acute) Diabetic skin ulcer (Acute) Decubitus ulcer (Acute) Decubitus ulcer (Acute) Necrotic eschar (Acute) Bacteremia (Acute) MRSA bacteremia (Acute) Pseudohyponatremia (Acute) Sepsis (Acute) Osteomyelitis (Acute) Diabetic wet gangrene of the foot (Acute) Opioid use disorder, severe, dependence (Acute) HTN (hypertension) (Acute) Diabetic ulcer of right foot (Acute) Amputation of toe of right foot (Acute) Foot osteomyelitis, left (Acute) Past Medical History Medical History (Updated 08/19/25 @ 10:16 by Ninfa Carroll RN) Opioid use disorder, severe, dependence Anemia in chronic kidney disease (CKD) ESRD (end stage renal disease) on dialysis Cardiomyopathy Pericardial effusion Leukocytosis Transfusion history Atrial flutter, paroxysmal COPD (chronic obstructive pulmonary disease) Constipation Callus of foot Seizure Polysubstance abuse CKD (chronic kidney disease) stage 3, GFR 30-59 ml/min Foot osteomyelitis, left Amputation of toe of right foot Diabetic ulcer of right foot Sleep apnea Diabetes HTN (hypertension) Family History Family history of problems with anesthesia: No Surgical History Surgical History (Updated 08/19/25 @ 10:21 by Ninfa Carroll RN) History of surgery on arm History of surgery History of surgery 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 History of surgical procedure (~04/24/23) History of Problems with Anesthesia: No Social History Social History (Updated 08/18/25 @ 09:04 by Ninfa Carroll RN) Household Members: Family Household Members Other:: mother Housing: Apartment Are you a primary workforce investment act career manager to a significant other at home: No Do you presently have visiting nurse or other home services: No Alcohol intake: former Comment: right BKA & left transmetatarsal amputation Patient Tobacco Use Status: Current everyday Tobacco user Tobacco use type: Cigarette Cigarette Packs Per Day: 0.5 Cigarettes Per Day: 6 Years Smoked: 33 e-Cigarette/Vaping Use: Currently Using Second Hand Smoke Exposure: Yes Use of substances other than those prescribed or required for medical reasons: Yes Substance Use Type: Marijuana Have you been hit, kicked, punched, or otherwise hurt by someone within the past year? If so, by whom?: No Spiritual Healthcare Practices: no Gnosticist Healthcare Practices: no Cultural Healthcare Practices: no Are you DNR?: No Advance Directives: No Advance Directives Information Provided: No Advance Directives on File: No Poor oral hygiene: Yes service: No Meds Allergies Allergy/AdvReac Type Severity Reaction Status Date / Time No Known Allergies (No Known Allergy Verified 08/09/25 09:36 Allergies*) Home Medications ?Medication ?Instructions ?Recorded ?Confirmed ?Last Taken ?Type insulin lispro 100 unit/mL See Protocol subcut TIDAC 1 11/28/23 08/19/25 11/04/24 History subcutaneous pen (Humalog KwikPen (U-100) Insulin) melatonin 5 mg tablet 5 mg PO BEDTIME PRN insomnia 09/28/24 08/19/25 11/04/24 History insulin glargine 100 unit/mL (3 15 unit subcut BEDTIME 12/17/24 08/19/25 Unknown History mL) subcutaneous pen Exam Height,Weight and Vital Signs: Weight 76.1 kg Narrative Narrative: ECHO 05/2025 Procedure Date: 05/10/2025 Procedure Type: Transthoracic Echocardiogram Location: [facility] [place] Height: 175.26 cm Weight: 81.65 kg BSA: 1.98 m2 Heart Rate: 93 bpm BP: 139 / 66 mmHg Rubber Insulator: SB/RC Referring MD: Nik Blum MD Symptoms: syncope, elevated trop-I Study Quality: Adequate ECG Rhythm: Sinus Conclusions: - Normal left ventricular size and systolic function. There is moderately increased left ventricular wall thickness. The visually estimated ejection fraction is between 55-60%. - Normal right ventricular cavity size and systolic function. - There is mild dilatation of the sinuses of Valsalva measuring 4.10 cm and mild dilatation of the ascending aorta measuring 3.80 cm. - There is no evidence of pericardial effusion. EKG 05/2025 Vent. Rate : 90 BPM Atrial Rate : 90 BPM P-R Int : 232 ms QRS Dur : 96 ms QT Int : 386 ms P-R-T Axes : 55 45 64 degrees QTcB Int : 472 ms Sinus rhythm with 1st degree A-V block Cannot rule out Anterior infarct , age undetermined Abnormal ECG When compared with ECG of 17-Dec-2024 20:22, MI interval has increased Assessment and Plan Final Anesthetic Review Family History of Problems with Anesthesia: No History of Problems with Anesthesia: No
[2025-08-22 09:33] VITALS: BP 177/95; PULSE 89; RESP 17; TEMP 37.3; O2SAT 98
[2025-08-22 09:33] LABS: Hematocrit 36.4 % (42.0-52.0); Hemoglobin 11.3 g/dl (14.0-18.0); Mean Corpuscular HGB Conc 31.0 g/dl (31.0-36.0); Mean Corpuscular Hemoglobin 28.0 pg (27.0-33.0); Mean Corpuscular Volume 90.3 fL (80.0-98.0); NRBC Abs Auto 0.000 X10*3/uL (0.0-0.012); NRBC Pct Auto 0.0 /100WBC (0.0-0.2); Platelet Count 172 X10*3/uL (160-400); Red Blood Count 4.03 X10*6/uL (4.60-5.80); White Blood Count 6.8 X10*3/uL (4.8-10.8)
[2025-08-22 09:44] LABS: INTERNATIONAL NORM RATIO 1.0 (0.9-1.1); Prothrombin Time 11.9 SEC (10.9-12.4)
[2025-08-22 09:47] LABS: Partial Thromboplastin Time 43.5 SEC (26.7-34.1)
[2025-08-22 09:50] LABS: Glucose, Whole Blood 120 mg/dL (60-115)
[2025-08-22 09:51] LABS: Anion Gap 11 (12-20); Blood Urea Nitrogen 22 mg/dL (9-16); Calcium 8.1 mg/dL (8.4-10.2); Carbon Dioxide 30 mmol/L (22-29); Chloride 98 mmol/L (96-108); Estimated Glomerular Filt Rate 14; Potassium 4.1 mmol/L (3.3-5.1); Sodium 135 mmol/L (135-145)
[2025-08-22 09:54] LABS: Cannabinoid Screen Urine Not Detected (Not Detect)
[2025-08-22 10:03] VITALS: BP 178/94; PULSE 89; RESP 17; O2SAT 98
--- NOTE | 2025-08-22 10:05 | PC.NURSE ---
Patient has double lumen dialysis catheter to right chest. Dressing clean dry intact. Patient had dialysis this morning and this line was used with no issues.
--- NOTE | 2025-08-22 10:24 | PC.NURSE ---
Patient's procedure has been cancelled by Dr. Gaona. Patient's tox screen came back positive for fentanyl and cocaine. Dr. Gaona at the bedside to talk to patient regarding plan, pt agreeable to plan. Pt changed and wheeled to waiting room to wait for ride. Food and beverage given to patient while waiting.
--- NOTE | 2025-08-22 10:27 | PM.EVENT ---
Event Note Date of Service: 08/22/25 Event Note: Patient was canceled. Lab tests was positive toxicology for opioid, fentanyl and cocaine. After discussion with anesthesia case was canceled. Time Spent With Patient Time: Total time managing care of this patient today ____ minutes.
== END ==
LOC: HO.SSS 09:01
PROVIDERS: Nurse Practitioner; PCP Family Medicine; Visit Provider Surgery Vascular Surgery
DX: N18.6 End stage renal disease (principal); Z53.09 Procedure and treatment not carried out because of other contraindication; R82.5 Elevated urine levels of drugs, medicaments and biological substances
CPT/HCPCS: 36415; 80048; 80307; 82947; 85027; 85610; 85730; J0690

== ENCOUNTER 2025-09-04 07:38 | Inpatient (IN) | payer MEDICAID, SELFPAY ==
[2025-09-04] VITALS (28 sets, daily range): BP systolic 115–235; BP diastolic 65–136; PULSE 69–122; RESP 13–33; TEMP 34.7–36.6; O2SAT 94–100; BMI 24.3; BMI 24.7
--- NOTE | ~2025-09-04 | CT_ITS ---
CLINICAL HISTORY: ams CT head without contrast Comparison: CT/REG/MT/SR - CT HEAD WITHOUT IV CONTRAST - 05/11/23 19:[address]/REG/SR - CT HEAD NECK ANGIOGRAPHY WITH IV CONTRAST STROKE - 05/05/23 21:23 EDT Findings: No intra-axial mass, midline shift, hydrocephalus, or acute hemorrhage. No significant atrophy-like change or white matter disease. Ethmoid air cell mucosal thickening. The remaining paranasal sinuses and mastoid air cells are clear. The orbits are unremarkable. Small scalp hematoma overlying the occiput without underlying fracture. IMPRESSION: 1. Small occipital scalp hematoma without underlying fracture. 2. No intracranial hemorrhage. This document has been electronically signed by: Elia Singh MD on 09/04/2025 10:58:12
--- NOTE | ~2025-09-04 | NM_ITS ---
EXAMINATION: NM RADIONUCLIDE WHITE BLOOD CELL STUDY WITH SPECT. CLINICAL INFORMATION: Suspicion for cervical osteomyelitis. CT questioned C5-C6, C6-7 and C7-T1 discitis/osteomyelitis. COMPARISON: CT cervical spine 09/04/2025. TECHNIQUE: Following intravenous and its fixation of 11 mCi of tagged white blood cells, imaging and perfusion study of cervical spine and delayed statics of the whole body and the cervical spine were obtained. In addition SPECT study of the cervical spine were obtained with color fusion images were performed on a separate workstation and available for interpretation. FINDINGS: Cervical spine: There is degenerative disc changes with ventral and posterior spondylosis C5-6, C6-C7 and C7-T1 disc levels. There is no isotope activity seen in these disc levels or at C5 and C6 vertebra for suspected discitis osteomyelitis. Normal bone marrow activity seen in the rest of the cervical spine on SPECT study. Similar findings are seen on static images. On whole body black and white imaging there is an below-knee right amputation. Minimal focal activity seen at this amputation skin site likely reactionary changes but no suspicion for osteomyelitis. No abnormal activity seen in chest, abdomen or pelvis. No bone marrow activity seen either in the whole body scan. Normal activity seen in the liver and spleen. No abnormal activity seen in the upper or lower extremities. NM/NM white blood scan IMPRESSION: No abnormal perfusion, static and delayed images seen in the cervical spine especially at the C5-6, C6-C7 disc levels. There is no abnormal isotope activity seen at the C6 or C7 vertebra to suspect osteomyelitis. 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 Whole body white blood cell Ceretec scan is is unremarkable. Electronically signed by: Tobias Barnett MD 09/07/2025 10:33 AM JOYA
--- NOTE | ~2025-09-04 | CT_ITS ---
CLINICAL HISTORY: History of pericardial effusion history of polysub CT chest with contrast Comparison: CR - XR CHEST 1V - 09/04/25 08:[address]/SR - CT ABDOMEN PELVIS WO IV CON - 08/29/24 15:18 EDT Findings: ET tube terminates in the trachea. Central venous catheter terminates in the right atrium. The heart size is normal. No pericardial effusion. Coronary artery calcifications. Thoracic aorta is nonaneurysmal. Great vessels are unremarkable. The thyroid and mediastinum are unremarkable. Patchy bilateral lower lobe dependent consolidations. No pleural effusion. The visualized upper abdomen is unremarkable. No acute osseous abnormality. IMPRESSION: 1. Bilateral lower lobe patchy consolidations with dependent positioning, possible aspiration etiology. 2. No pericardial effusion. This document has been electronically signed by: Elia Singh MD on 09/04/2025 10:42:29
--- NOTE | ~2025-09-04 | XR_ITS ---
CLINICAL HISTORY: intubation verification 1 view chest x-ray Comparison: CR/SR - XR CHEST 1 VIEW - 05/09/25 08:34 EDT CR - XR CHEST 1V - 12/17/24 20:11 EST Findings: ET tube terminates 4.5 cm from the lary. Hemodialysis catheter terminates in the high right atrium. Low lung volumes with patchy opacities in the right lower lobe in addition to pulmonary vascular congestion. Normal size heart. No acute fracture. IMPRESSION: 1. Low lung volumes with pulmonary vascular congestion and patchy opacities at the lower lung bases for which superimposed pneumonia can not be excluded. 2. ET tube terminates approximately 4.5 cm from the lary. This document has been electronically signed by: Elia Singh MD on 09/04/2025 09:46:10
--- NOTE | ~2025-09-04 | CT_ITS ---
CLINICAL HISTORY: fall agitated esrd CT abdomen and pelvis with contrast Comparison: CT/REG/SR - CT CHEST W IV CON - 09/04/25 09:[address]/SR - CT PELVIS WO IV CON - 11/05/24 12:16 EST Findings: Redemonstrated patchy consolidations at the dependent lung bases. Liver and gallbladder within normal limits. Spleen is mildly enlarged measuring up to 13.7 cm. No splenic lesions. Pancreas and bilateral adrenal glands are within normal limits. Bilateral renal cysts are present most of which are less than 1 cm. No renal stones are present. No abdominal free fluid. Multiple borderline enlarged retroperitoneal nodes measuring up to 1.5 cm in the left para-aortic level (series 37, image 328). Aorta is nonaneurysmal and contains moderate atherosclerotic calcifications throughout. Nasogastric tube terminates in the stomach. No bowel obstruction, pneumoperitoneum, or pneumatosis. Moderate stool burden. Appendix is normal. Bladder is distended without wall thickening. Prostate is mildly enlarged. Degenerative changes of the bilateral hips and lumbar spine. No acute osseous lesions. Bilateral inguinal lymphadenopathy measuring up to 2.6 cm in the groin. IMPRESSION: 1. No acute intra-abdominal or pelvic abnormalities. 2. Nonspecific and likely chronic findings including bilateral inguinal lymphadenopathy measuring up to 2.6 cm in the left groin, in addition to multiple borderline enlarged retroperitoneal nodes measuring up to 1.5 cm in the left periaortic region. This document has been electronically signed by: Elia Singh MD on 09/04/2025 11:09:49
--- NOTE | ~2025-09-04 | CT_ITS ---
CLINICAL HISTORY: fall CT cervical spine without contrast Comparison: CT/REG/SR - CT HEAD NECK ANGIOGRAPHY WITH IV CONTRAST STROKE - 05/05/23 21:23 EDT Findings: Severe degenerative changes are demonstrated about the cervical spine from the level of C5-C6 through C7-T1 with vertebral body and intervertebral disc height loss with erosion of the endplates at C5-C6 C6-C7 and C7-T1. Findings about C6-C7 with sclerosis and irregular endplate features raise possibility for osteomyelitis discitis. No acute fractures or dislocations. No acute findings on limited view of the intracranial contents. No cervical fluid collections or masses. Biapical lung scarring. IMPRESSION: 1. Severe degenerative changes of the cervical spine from C5-C6 through C7-T1 with intervertebral disc height loss and erosion of the endplates though at C6-C7 sclerosis and irregular endplate features raise possibility of osteomyelitis/discitis and clinical correlation is recommended. 2. No traumatic cervical spine injury identified. This document has been electronically signed by: Elia Singh MD on 09/04/2025 10:52:24
--- NOTE | 2025-09-04 07:56 | ED_ITS ---
HPI - Altered Mental Status General Chief Complaint: Altered Mental Status Stated Complaint: SUSPECT HEROIN/CRACK USE,NARCAN GIVEN,AMS/ERRATIC Time Seen by Provider: 09/04/25 07:45 History of Present Illness HPI narrative: History and physical as per admitting provider. The patient is a 44-year-old male with a past medical history significant for ESRD on hemodialysis Friday, right BKA, left TMA, chronic nonhealing wounds, diabetes, hypotension, opiate use disorder on Suboxone and multiple others who presents from home after what appears to be the history is from the mother who is bedside. Patient presented today after using cocaine and heroin and became extremely agitated. Moving or bouts. There is no exact seizure noted. Patient had a sugar checked by EMS to be 160. Has a long history of diabetes. Unsure when patient got his last dialysis. Has a history of diabetic ulcer to the right leg stump. Patient from home. History of MRSA. History of pericarditis. Related Data Previous Rx's ?Medication ?Instructions ?Recorded Dakins solution 11/06 strength #1 ea 09/25/24 pen needle, diabetic 32 gauge x #100 ea 09/25/2411/06 blood sugar diagnostic (FreeStyle #100 ea 09/29/24 Lite Strips) blood-glucose meter #1 ea 09/29/24 lancets 28 gauge (FreeStyle #100 ea 09/29/24 Lancets) aspirin 81 mg tablet 81 mg PO DAILY #30 tabs 06/27 buprenorphine 8 mg-naloxone 2 mg 1 film sublingual TID 30 days #90 08/01/25 sublingual film (Suboxone) ea Allergies Allergy/AdvReac Type Severity Reaction Status Date / Time No Known Allergies (No Known Allergy Verified 09/04/25 07:59 Allergies*) [facility], [facility] Past Medical History Medical History (Updated 09/04/25 @ 11:21 by Ame Bragg MD) Opioid use disorder, severe, dependence Anemia in chronic kidney disease (CKD) ESRD (end stage renal disease) on dialysis Cardiomyopathy Pericardial effusion Leukocytosis Transfusion history Atrial flutter, paroxysmal COPD (chronic obstructive pulmonary disease) Constipation Callus of foot Seizure Polysubstance abuse CKD (chronic kidney disease) stage 3, GFR 30-59 ml/min Foot osteomyelitis, left Amputation of toe of right foot Diabetic ulcer of right foot Sleep apnea Diabetes HTN (hypertension) Surgical History History of surgery on arm History of surgery History of surgery 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 History of surgical procedure (~04/24/23) Social History Social History (Updated 08/18/25 @ 09:04 by Ninfa Carroll RN) Household Members: Family Household Members Other:: mother Housing: Apartment Are you a primary youth career specialist to a significant other at home: No Do you presently have visiting nurse or other home services: No Alcohol intake: former Comment: right BKA & left transmetatarsal amputation Patient Tobacco Use Status: Current everyday Tobacco user Tobacco use type: Cigarette Cigarette Packs Per Day: 0.5 Cigarettes Per Day: 6 Years Smoked: 33 e-Cigarette/Vaping Use: Currently Using Second Hand Smoke Exposure: Yes Use of substances other than those prescribed or required for medical reasons: Yes Substance Use Type: Crack/Cocaine and Heroin Advance Directives: No Advance Directives Information Provided: Yes Do you have a plan to hurt others: Vague service: No Physical Exam ED Vital Signs: Vital Signs - 24 hr 09/04/25 07:50 09/04/25 08:18 09/04/25 08:29 Temperature 98 F Pulse Rate 100 112 H 113 H Respiratory Rate 22 H 18 22 H Blood Pressure 223/121 H 232/127 H 149/99 H Pulse Oximetry 98 100 97 Oxygen Delivery Method Room Air Room Air Room Air Oxygen Flow Rate Fraction of Inspired Oxygen 09/04/25 08:36 09/04/25 08:45 09/04/25 08:49 Temperature Pulse Rate 120 H 117 H 116 H Respiratory Rate 33 H 30 H 28 H Blood Pressure 229/116 H 235/136 H Pulse Oximetry 95 97 100 Oxygen Delivery Method Room Air Room Air Ambu-Bag Oxygen Flow Rate 15 Fraction of Inspired Oxygen 09/04/25 08:52 09/04/25 08:54 09/04/25 08:54 Temperature Pulse Rate 122 H 112 H 112 H Respiratory Rate 18 18 18 Blood Pressure 231/124 H 227/115 H 227/115 H Pulse Oximetry 100 100 Oxygen Delivery Method Ambu-Bag Ambu-Bag Oxygen Flow Rate 15 Fraction of Inspired Oxygen 09/04/25 08:57 09/04/25 09:34 Temperature Pulse Rate 122 H Respiratory Rate 18 Blood Pressure 231/124 H Pulse Oximetry Oxygen Delivery Method Oxygen Flow Rate Fraction of Inspired Oxygen 40 BMI result Body Mass Index 24.3 Medications Administered Generic Name Dose Route Start Last Admin Trade Name Attilaq PRN Reason Stop Dose Admin Fentanyl 1,000 mcg in 100 mls @ 0 mls/hr 09/04/25 09:00 09/04/25 08:57 Sublimaze/Ns IVCONT 25 mcg/hr .Q0M LYSSA 2.5 mls/hr Protocol Administration Per Protocol Propofol 1,000 mg in 100 mls @ 0 mls/hr 09/04/25 09:00 09/04/25 08:52 Diprivan IVCONT 30 mcg/kg/min .Q0M LYSSA 13.84 mls/hr Protocol Administration Per Protocol Pantoprazole Sodium 40 mg/ 110 mls @ 400 mls/hr 09/04/25 10:00 09/04/25 10:33 Sodium Chloride IV 400 mls/hr DAILY@0630 LYSSA Administration Discontinued Medications Generic Name Dose Route Start Last Admin Trade Name Denzel PRN Reason Stop Dose Admin Etomidate 20 mg 09/04/25 08:55 09/04/25 08:45 Etomidate 20 Mg/10 Ml Vial IVPUSH 09/04/25 08:56 20 mg ONCE ONE Administration Calcium Gluconate 1 gm in 50 mls @ 50 mls/hr 09/04/25 08:16 09/04/25 09:29 Calcium Gluconate IV 09/04/25 09:15 Infused ONCE ONE Infusion Levetiracetam 1,000 mg in 100 mls @ 400 mls/hr 09/04/25 08:55 09/04/25 09:59 Keppra IV 09/04/25 09:09 Infused ONCE ONE Infusion Cefepime HCl 1 gm/ Sodium 50 mls @ 100 mls/hr 09/04/25 09:28 09/04/25 11:02 Chloride IV 09/04/25 09:57 Infused ONCE ONE Infusion Iohexol 100 ml 09/04/25 09:28 09/04/25 09:28 Iohexol 350 Mg/Ml 100 Ml Infus..Btl IV 09/04/25 09:29 85 ml ONCE ONE Administration Ketamine HCl 200 mg 09/04/25 07:45 09/04/25 07:49 Ketamine Hcl 500 Mg/5 Ml Vial IM 09/04/25 07:46 200 mg ONCE ONE Administration Ketamine HCl 100 mg 09/04/25 08:18 09/04/25 08:25 Ketamine Hcl 500 Mg/5 Ml Vial IM 09/04/25 08:19 100 mg ONCE ONE Administration Ketamine HCl 50 mg 09/04/25 08:58 09/04/25 08:40 Ketamine Hcl/Ns 100 Mg/10 Ml Syringe IVPUSH 09/04/25 08:59 50 mg ONCE ONE Administration Midazolam HCl 2 mg 09/04/25 08:55 09/04/25 08:45 Midazolam Hcl 2 Mg/2 Ml Vial IVPUSH 09/04/25 08:56 2 mg ONCE ONE Administration Rocuronium Williams 100 mg 09/04/25 08:57 09/04/25 08:45 Rocuronium Williams 50 Mg/5 Ml Vial IVPUSH 09/04/25 08:58 100 mg ONCE ONE Administration Sodium Bicarbonate 50 meq 09/04/25 08:16 09/04/25 08:28 Sodium Bicarbonate 8.4% 50 Meq/50 Ml Syringe IVPUSH 09/04/25 08:17 50 meq ONCE ONE Administration Medical Decision Making Medical Decision Making MDM Narrative: Patient extremely agitated found with multiple drug paraphernalia next to him has a long history of polysubstance abuse not redirectable by verbal deescalation. There was bystander noted question seizure-like activity which is more like arms and legs freely. Has a history of end-stage renal disease is on dialysis. I was able to finally contact the patient's mom. I spoke with her personally he does have a history of seizure but he did go to dialysis Friday normally he goes on Fridays. We attempted to sedate patient using ketamine after verbal deescalation completely failed. Initially a dose of IM ketamine was given. I gave him 200 mg slightly on the lower and just to see how he responded it did nothing for him he was still extremely agitated. I did not proceeded to give 1.5 milligrams/kilogram of ketamine IV. Patient is still extremely agitated. Additional dose of ketamine IV 50 mg was given. We need to get patient to CT scan. We need to for hyperkalemia as his EKG showed an extreme elevated T-waves. I can not get good blood flow from him because he is so agitated. We elected to intubate him. I gave him etomidate and rocuronium to intubate him because of his end-stage renal status. The ETT went in fine my review of the chest x-ray post intubation showed good placement of the ET tube. Good placement of the OG tube. Procedure note for the 0 G-tube I placed the OG through the mouth into the stomach with good return the stomach contents. Additional x-ray proved the OG to be in place. We then proceeded to take patient for stat CT scan. Started patient on propofol drip for seizure prevention and also for sedation. CT scan of the head by my interpretation was grossly negative. CT scan of the chest abdomen pelvis was grossly negative by my interpretation. I received a phone call from Radiology concerning possible osteomyelitis of the cervical spine. At this point culture was already obtained antibiotic was started patient was already in the intensive care unit. I did try to contact Dr. Iverson about the findings. I texted her the results of the CT C- spine. Patient is in critical condition. I kept mom abreast of the current situation. I also did a bedside ultrasound I did not see any acute evidence of pericardial effusion. Patient has a history of effusions in the past Differential Diagnosis Differential Diagnoses: The differential diagnosis associated with the presentation includes Intracranial bleed, hypoglycemia, hyperkalemia, electrolyte disturbance Admission/Observation Consideration of admission/observation: Escalation of care including admission/observation considered Will require admission to the intensive care unit Consult Healthcare Provider Management of the patient was discussed with: Supervisor Lathing (Design Supervisor) Lab Data MDM Lab Attestation statement: I reviewed the patient's lab results. 09/04/25 08:13 09/04/25 08:17 Labs: Lab Results 09/04/25 09/04/25 09/04/25 Range/Units 07:59 08:13 08:16 WBC 11.2 H (4.8-10.8) X10*3/uL RBC 3.81 L (4.60-5.80) X10*6/uL Hgb 11.1 L (14.0-18.0) g/dl Hct 34.8 L (42.0-52.0) % MCV 91.3 (80.0-98.0) fL MCH 29.1 (27.0-33.0) pg MCHC 31.9 (31.0-36.0) g/dl RDW 14.7 (11.0-16.0) % Plt Count 242 D (160-400) X10*3/uL MPV 11.3 (9.4-12.4) fL Immature Gran % (Auto) 0.3 (0.0-0.4) % Neut % (Auto) 68.6 (45-73) % Lymph % (Auto) 22.5 (20-40) % [place] % (Auto) 7.0 (2-11) % Eos % (Auto) 1.4 (0-4) % Baso % (Auto) 0.2 (0-2) % Lymph # (Auto) 2.5 (1.2-4.9) X10*3/uL [place] # (Auto) 0.8 (0.1-1.2) X10*3/uL Eos # (Auto) 0.2 (0.0-0.4) X10*3/uL Baso # (Auto) 0.0 (0.0-0.2) X10*3/uL Abs Immat Gran (auto) 0.03 (0.00-0.03) X10*3/uL Absolute Neuts (auto) 7.7 (2.0-8.3) x10*3/uL Absolute Nucleated RBC 0.000 (0.0-0.012) X10*3/uL Nucleated RBC % (auto) 0.0 (0.0-0.2) /100WBC PT 11.5 (10.9-12.4) SEC INR 1.0 (0.9-1.1) VBG pH (7.32-7.43) VBG pCO2 mmHg VBG pO2 mmHg VBG HCO3 (22-26) mmol/L VBG O2 Saturation % VBG Base Excess mmol/L Sodium (135-145) mmol/L Potassium (3.3-5.1) mmol/L Chloride (96-108) mmol/L Carbon Dioxide (22-29) mmol/L Anion Gap (12-20) BUN (9-16) mg/dL Creatinine (0.5-1.4) mg/dL Estim Creat Clear Calc Estimated GFR POC Glucose 98 (60-115) mg/dL Random Glucose (60-115) mg/dL Lactic Acid (0.5-2.0) mmol/L Calcium 8.8 D (8.4-10.2) mg/dL Magnesium (1.6-2.6) mg/dL Total Creatine Kinase (38-174) U/L Troponin I High Sens 200.6 H* D (<3.5-35.0) ng/L Lipase (8-78) U/L Ethyl Alcohol < 10 mg/dL 09/04/25 09/04/25 Range/Units 08:17 08:23 WBC (4.8-10.8) X10*3/uL RBC (4.60-5.80) X10*6/uL Hgb (14.0-18.0) g/dl Hct (42.0-52.0) % MCV (80.0-98.0) fL MCH (27.0-33.0) pg MCHC (31.0-36.0) g/dl RDW (11.0-16.0) % Plt Count (160-400) X10*3/uL MPV (9.4-12.4) fL Immature Gran % (Auto) (0.0-0.4) % Neut % (Auto) (45-73) % Lymph % (Auto) (20-40) % [place] % (Auto) (2-11) % Eos % (Auto) (0-4) % Baso % (Auto) (0-2) % Lymph # (Auto) (1.2-4.9) X10*3/uL [place] # (Auto) (0.1-1.2) X10*3/uL Eos # (Auto) (0.0-0.4) X10*3/uL Baso # (Auto) (0.0-0.2) X10*3/uL Abs Immat Gran (auto) (0.00-0.03) X10*3/uL Absolute Neuts (auto) (2.0-8.3) x10*3/uL Absolute Nucleated RBC (0.0-0.012) X10*3/uL Nucleated RBC % (auto) (0.0-0.2) /100WBC PT (10.9-12.4) SEC INR (0.9-1.1) VBG pH 7.45 H (7.32-7.43) VBG pCO2 38 mmHg VBG pO2 69 mmHg VBG HCO3 26 (22-26) mmol/L VBG O2 Saturation 93.0 % VBG Base Excess 2.9 mmol/L Sodium 134 L (135-145) mmol/L Potassium 5.1 D (3.3-5.1) mmol/L Chloride 97 (96-108) mmol/L Carbon Dioxide 23 (22-29) mmol/L Anion Gap 19 (12-20) BUN 46 H (9-16) mg/dL Creatinine 6.17 H* (0.5-1.4) mg/dL Estim Creat Clear Calc 15.2 Estimated GFR 10 POC Glucose (60-115) mg/dL Random Glucose 104 (60-115) mg/dL Lactic Acid 1.6 (0.5-2.0) mmol/L Calcium 9.1 (8.4-10.2) mg/dL Magnesium 2.9 H (1.6-2.6) mg/dL Total Creatine Kinase 134 (38-174) U/L Troponin I High Sens (<3.5-35.0) ng/L Lipase 12 (8-78) U/L Ethyl Alcohol mg/dL Independent Interpretation I performed an independent interpretation of an: EKG (My interpretation patient's EKG showed a sinus tachycardia heart rate initially was 120 with significant peak T-waves that was new. A 2nd EKG done about an hour later showed sinus rhythm heart rate is about 100 NE QRS QTC was normal there is still significant T-wave peaked), Plain X-Ray and CT Scan (CT head CTA abdomen pelvis negative) Interpretation: ET and OG tube placed Radiology Impression Discussion of test interpretation with radiology: I discussed test interpretation with the radiologist and I have reviewed the radiologist's reading. Radiologist Impression: I discussed with radiology's team about the cervical spine resolved. Independent Historian Clinical information obtained from an independent historian. History obtained from or confirmed by: Other (Discussed with patient's mom) External Record Review External record reviewed: Inpatient record Social Determinants Patient?s care significantly limited by Social Determinants of Health including: Inadequate housing, Low income, Alcoholism and drug addiction in family and Problems related to primary support group Procedures Intubation Intubation Type:: Endotracheal Tube Insertion Intubation Date:: 09/04/25 Intubation Time:: 11:18 Time out performed: Yes sedative: Etomidate Mg Given: 20 paralytic: Rocuronium Mg Given: 100 Laryngoscope: fiber optic video scope ET Tube Size: 7.5 ET Tube Uncuffed: No Tube Secured Depth (cm): 25 Tube Secured Location: lips Tube Placement Confirmation: visualized tube passing through cords, equal breath sounds bilaterally, no breath sounds over epigastrium and confirmation by capnometry Patient Tolerated Procedure: well Critical Care Time Critical Care Time Critical Care Time: Yes Total Critical Care Time: 90 Attestation: I have personally provided 90 minutes of critical care time exclusive of time spent on separately billable procedures. ?Time includes review of lab data, radiology results, discussion with consultants, and monitoring for potential decompensation. ?Interventions were performed as documented above Discharge Plan Discharge Clinical Impression: Agitation, Polysubstance abuse Patient Disposition: Admitted As Inpatient
--- NOTE | 2025-09-04 07:57 | ECG_ITS ---
Test Reason : HIGH K Blood Pressure : */* mmHG Vent. Rate : 110 BPM Atrial Rate : * BPM P-R Int : * ms QRS Dur : 88 ms QT Int : 328 ms P-R-T Axes : * 60 59 degrees QTcB Int : 443 ms Artifact in tracing Atrial fibrillation with rapid ventricular response Minimal voltage criteria for LVH, may be normal variant ( [place] product ) Abnormal ECG When compared with ECG of 09-May-2025 06:27, Atrial fibrillation has replaced Sinus rhythm Referred By: Ame Bragg Electronically Signed By: SHIVANI ALATORRE
[2025-09-04 08:19] LABS: MANUAL DIFF FLAG NO
[2025-09-04 08:26] LABS: Hematocrit 34.8 % (42.0-52.0); Hemoglobin 11.1 g/dl (14.0-18.0); Imm Gran Abs Auto 0.03 X10*3/uL (0.00-0.03); Imm Gran Pct Auto 0.3 % (0.0-0.4); Lymphocytes Absolute Auto 2.5 X10*3/uL (1.2-4.9); Mean Corpuscular HGB Conc 31.9 g/dl (31.0-36.0); Mean Corpuscular Hemoglobin 29.1 pg (27.0-33.0); Mean Corpuscular Volume 91.3 fL (80.0-98.0); NRBC Abs Auto 0.000 X10*3/uL (0.0-0.012); NRBC Pct Auto 0.0 /100WBC (0.0-0.2); Platelet Count 242 X10*3/uL (160-400); Red Blood Count 3.81 X10*6/uL (4.60-5.80); White Blood Count 11.2 X10*3/uL (4.8-10.8)
[2025-09-04] MEDS: Calcium Gluconate/NaCl,Iso-Osm 1 GM/50 ML PLAST..BAG IV (08:28)
[2025-09-04 08:31] LABS: Calcium 8.8 mg/dL (8.4-10.2)
[2025-09-04 08:32] LABS: VBG HCO3 26 mmol/L (22-26); VBG O2 % Saturation 93.0 %
[2025-09-04 08:36] LABS: INTERNATIONAL NORM RATIO 1.0 (0.9-1.1); Prothrombin Time 11.5 SEC (10.9-12.4)
[2025-09-04] MEDS: Ketamine HCl/NS 100 MG/10 ML SYRINGE 50 MG IVPUSH (08:40)
[2025-09-04] MEDS: Etomidate 20 MG/10 ML VIAL IVPUSH (08:45)
[2025-09-04 08:53] LABS: Anion Gap 19 (12-20); Blood Urea Nitrogen 46 mg/dL (9-16); Calcium 9.1 mg/dL (8.4-10.2); Carbon Dioxide 23 mmol/L (22-29); Chloride 97 mmol/L (96-108); Creatinine Clr Calc Pharmacy 15.2; Estimated Glomerular Filt Rate 10; Lipase 12 U/L (8-78); Magnesium 2.9 mg/dL (1.6-2.6); Potassium 5.1 mmol/L (3.3-5.1); Sodium 134 mmol/L (135-145)
[2025-09-04 08:53] LABS: Troponin-I High Sensitivity 200.6 ng/L (<3.5-35.0)
[2025-09-04 08:54] LABS: Venous Blood Gas Refer to POC result
[2025-09-04] MEDS: fentaNYL citrate/NS 1,000 MCG/100 ML PLAST..BAG 2.5 MCG IVCONT (08:57)
--- OUTSIDE RECORDS SUMMARY | 2025-09-04 08:57 | XMS_ITS | Encounter Summary ---
Author Organization [facility] Address [address] [place] [address] Care Team Providers Care Gas Engine Operator Name Role Phone Unavailable Primary Care Provider Unavailabl e Reason for Visit * Reason Comments Med Refill Encounter Details Date Type Department Care Team (Late st Contact Info) Description 01/26/2025 Refill [facility] [address] [place] [address] Araseli Rucker, ANP [address] [place] [address] Other insomnia Social History Tobacco Use Types [...]
--- OUTSIDE RECORDS SUMMARY | 2025-09-04 08:57 | XMS_ITS | Clinical Summary ---
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 Name Role Phone Unavailable Primary Care Provider [...] unspecified whether stage 3a or 3b CKD ([facility]) TEST BLOOD SUGAR THREE TIMES DAILY 100 strip 11 4 Active TRUEplus Lancets 33G miscIndications:D iabetes mellitus, stable ([facility]) TEST BLOOD SUGAR THREE TIMES DAILY 100 [...] 08/01/2025 Acidosis 08/01/2025 Acute CVA (cerebrovascular accident) ([facility]) 0 08/01/2025 Acute hypokalemia 08/01/2025 Acute hypoxemic respiratory failure ([facility]) Amputation of toe of right foot 08/01/2025 Anasarca 08/01/2025 Anemia in chronic kidney disease (CKD) Anemia 08/01/2025 Bacteremia 08/01/2025 Cardiomyopathy 08/01/2025 Callus of foot 08/01/2025 Cellulitis 08/01/2025 Empyema ([facility]) 08/01/2025 Cocaine intoxication ([facility]) 08/01/2025 Confusion 08/01/2025 Constipation 08/01/2025 COPD exacerbation ([facility]) 08/01/2025 Decubitus ulcer 08/01/2025 Dehydration 08/01/2025 Diabetic skin ulcer 08/01/2025 Diabetic ulcer of right foot 08/01/2025 Diabetic wet gangrene of the foot 08/01/2025 Elevated troponin 08/01/2025 End stage renal failure on dialysis ([facility]) Foot osteomyelitis, left ([facility]) 08/01/2025 History of endocarditis 08/01/2025 Hyperglycemia 08/01/2025 Hyperphosphatemia 08/01/2025 Hypocalcemia 08/01/2025 Leukocytosis 08/01/2025 MRSA bacteremia 08/01/2025 Myoclonic disorder 08/01/2025 Necrotic eschar ([facility]) 08/01/2025 Need for acute hemodialysis 08/01/2025 Open wound 08/01/2025 Opiate withdrawal ([facility]) 08/01/2025 Panic attack 08/01/2025 Pericardial effusion 08/01/2025 Pleural effusion, bilateral 08/01/2025 Pseudohyponatremia 08/01/2025 Removal of staple 08/01/2025 Sepsis ([facility]) 08/01/2025 Seizure ([facility]) 08/01/2025 Syncope 08/01/2025 Toxic metabolic encephalopathy 08/01/2025 Volume overload 08/01/2025 Paroxysmal atrial flutter ([facility]) 08/01/2025 Hyperglycemia due to type 2 diabetes mellitus HTN (hypertension) 08/01/2025 Acute renal failure 08/01/2025 Chronic kidney failure 08/01/2025 CKD (chronic kidney disease) stage 3, GFR 30-59 ml/min ([facility]) 08/01/2025 Type 2 diabetes mellitus 08/01/2025 Opioid use disorder, severe, dependence ([facility] ) 08/01/2025 Atrial flutter ([facility]) 10/05/2024 Overview (10/05/2024): -dx in [facility] 09/2024 Primary insomnia 07/14/2023 Assessment & Plan (07/14/2023 10:26 PM EDT): Start trazodone Counseled re tight control of HTN, DM and avoid recreational drug use. FU with PCP Chronic renal disease, stage IV ([facility]) 2022 Overview (06/23/2023): -With significant proteinuria due [...] home is Coronary artery disease invo lving paimiut coronary artery of paimiut heart without angina pectoris 06/23/2023 Osteomyelitis 06/23/2023 Tobacco dependence 06/23/2023 Overview (06/23/2023): -motivational interviewing done PAD (peripheral artery disease) 06/23/2023 Assessment & Plan (07/14/2023 10:32 PM EDT): Sec to DM, HTN, smoking, cocaine use. 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 Has fu appt [...] (08/01/2025): -motivational interviewing done Uncomplicated opioid dependence ([facility]) 2022 Polysubstance abuse 06/04/2023 Assessment & Plan [...] with his mother) . Right BKA infection ([facility]) 06/04/2023 Overview (06/23/2023): Right foot partal amputation 04/18/2023 due to right foot gangreen with osteomyelitis. Dischargted 05/01/23 with ertapenem via PICC line for osteomyelitis. Returned to [facility] with AMS and underwent right BKA 05/2023 Assessment & Plan (07/14/2023 10:33 PM EDT): Right BKA stump Is healing properly, urged to fu with vascular surgery. Will need PT /OT eval for right leg prosthesis fitting I will rx a transport wheelchair for mobility Altered mental status 06/04/2023 Overview (06/04/2023): Ad[facility] 05[facility]04/23 [facility] for encephalopathy thought to be cocaine related. he was discharged against medical advice. Seen in [place] [facility] 05/09/23 with repot of myoclonic spasms. Urine drug screen positive for opiates, fentanyl and cocaine.seen 05/11/23 in [place] [facility] for continued abnormal movents and discharged home. Admitted to [facility] 05/12/23-05/14/23 for possible seizure activity. He [...] 4w. Gastroesophageal reflux disease 05/04/2012 Morbid obesity ([facility]) 05/04/2012 Obstructive sleep apnea syndrome 05/04/2012 Overview [...] 03/30/2021 06/23/2023 Stage 3 chronic kidney disease ([facility]) 03/30/2021 06/23/2023 Encounters Date Type Department Care Team Description 08/23/2025 Results Follow-Up [facility] MED[facility] [address] [place] [phone] Cristina Stover MD CBC, Prothrombin Time-INR, Partial Thromboplastin Time, Activated (APTT), Additional followed-up results: 3 08/22/2025 Orders Only GENERIC EXTERNAL DATA DEPARTMENT Provider, Generic External Data 08/02/2025 Telephone [facility] [address] [place] [phone] Kadie Guzmán MD No Show 08/01/2025 Telephone [facility] MED & PEDS [address] [place] [address] Ivet Zhang MA chart prep 07/29/2025 Telephone [facility]INE [address] [place] [phone] Kyle Mitchell MD 07/27/2025 Refill [facility] [address] [place] [address] Cristina Stover MD Type 2 diabetes mellitus with stage 3 chronic kidney disease, with long-term current use of insulin, unspecified whether stage 3a or 3b CKD ([facility]); Diabetes mellitus, stable ([facility]) 07/25/2025 Refill [facility] [address] [place] [address] Cristina Stover MD Type 2 diabetes mellitus with stage 3 chronic kidney disease, with long-term current use of insulin, unspecified whether stage 3a or 3b CKD (CMS/HCC) 07/22/2025 Orders Only [facility] External Provider, [facility] 06/13/2025 Refill [facility] PEDS [address] [place] [address] Araseli Rucker ANP Other insomnia from Last 3 Months Immunizations Immunization Administration [...] or Tdap) 12/28/2024 12/28/2014 COVID-19 Vaccine ( season) 2025 Influenza Vaccine (#1) 2025 , [...] Procedure Name Priority Date/Time Associated Diagnosis Comments GLUCOSE, WHOLE BLOOD Routine 08/22/2025 9:46 AM EDT BASIC METABOLIC PANEL Routine 08/22/2025 9:22 AM EDT APTT Routine 08/22/2025 9:22 AM EDT PROTHROMBIN TIME-INR Routine 08/22/2025 9:22 AM EDT CBC Routine 08/22/2025 9:22 AM EDT DRUG MONITOR, PANEL 1, SCREEN, URINE Routine 08/22/2025 9:14 AM EDT SED RATE BY MODIFIED WESTERGREN Routine 07/22/2025 1:45 PM EDT C-REACTIVE PROTEIN Routine 07/22/2025 1: 45 PM EDT COMPREHENSIVE METABOLIC PANEL Routine 07/22/2025 1:45 PM EDT CBC WITH AUTO DIFFERENTIAL Routine 07/22/2025 1:45 PM EDT BLOOD CULTURE (FIRST) Routine 07/22/2025 1:45 PM EDT XR TIBIA FIBULA 2 VIEWS RIGHT Routine 07/22/2025 1:15 PM EDT BLOOD CULTURE (SECOND) Routine 12:56 PM EDT POCT GLYCATED HEMOGLOBIN, TOTAL Routine 07/14/2023 1:40 PM EDT Type 2 diabetes mellitus with stage 4 chronic kidney disease, with long-term current use of insulin ([facility]) ZZZ HISTORICAL MICROALBUMIN, RANDOM Routine 12/13/2019 1:40 PM EST HM HEPATITIS C ANTIBODY Routine 06/22/2019 HM HIV 1/2 ANTIGEN AND ANTIBODY Routine 06/22/2019 from Last 3 Months or Most Recently Relevant to Health Maintenance Results * (ABNORMAL) Glucose, Whole Blood (08/22/2025 9:46 AM EDT) Glucose, Whole Blood 120(H) 60 - 115 mg/dL [facility] Comment:METER #: [id number] 08/22/2025 9:46 AM EDT 08/22/2025 9:50 AM EDT us Generic External Data Provider LAB BLOOD ORDERAB LES Final Result Performing Organization Address [facility] Co de Phone Number [facility] [address] [place] [phone] * (ABNORMAL) Partial Thromboplastin Time, Activated (APTT) (08/22/2025 9:22 AM EDT) Partial Thromboplastin Time 43.5(H) 26.7 - 34.1 SEC [facility] 08/22/2025 9:22 AM EDT 08/22/2025 9:25 AM EDT Generic External Data Provider LAB BLOOD ORDERAB LES Final Result Performing Organization Address [facility] de Phone Number [facility] [address] [place] [phone] * Prothrombin Time-INR (08/22/2025 9:22 AM EDT) Prothrombin Time 11.9 10.9 - 12.4 SEC [facility] INTERNATIONAL NORM RATIO 1.0 0.9 - 1.1 [facility] Comment:INTERNATIONAL NORMAL IZED RATIO (INR) REFERENCE RANGES Reference RangeFor patients not on anticoagulant therapy: 0.9 - 1.1INR ranges for oral anticoagulanttherapy:For prevention and treatment of venous thrombosis and pulmonary embolism: 2.0 - 3.0For acute myocardial infarction with aspirin therapy: 2.0 - 3.0For acute myocardial infarction without aspirin therapy: 3.0 - 4.0For patients with mechanical prosthetic heart valves: 2.5 - 3.5 08/22/2025 9:22 AM EDT 08/22/2025 9:25 AM EDT Generic External Data Provider LAB BLOOD ORDERAB LES Final Result Performing Organization Address [facility] Co de Phone Number [facility] [address] [place] [phone] * (ABNORMAL) CBC (08/22/2025 9:22 AM EDT) [facility] White Blood Count 6.8 4.8 - 10.8 X10*3/uL [facility] Red Blood Count 4.03(L) 4.60 - 5.80 X10*6/uL [facility] Hemoglobin 11.3(L) 14.0 - 18.0 g/dl [facility] Hematocrit 36.4(L) 42.0 - 52.0 % [facility] Mean Corpuscular Volume 90.3 80.0 - 98.0 fL [facility] Mean Corpuscular Hemoglobin 28.0 27.0 - 33.0 pg [facility] Mean Corpuscular HGB Conc 31.0 31.0 - 36.0 g/dl [facility] Red Cell Distribution Width 14.2 11.0 - 16.0 % [facility] Platelet Count 172 160 - 400 X10*3/uL [facility] Mean Platelet Volume 10.5 9.4 - 12.4 fL [facility] NRBC Pct Auto 0.0 0.0 - 0.2 /100WBC [facility] NRBC Abs Auto 0.000 0.0 - 0.012 X10*3/uL [facility] 08/22/2025 9:22 AM EDT 08/22/2025 9:25 AM EDT us Generic External Data Provider LAB BLOOD ORDERAB LES Final Result [facility] [address] [place] [phone] * (ABNORMAL) Basic Metabolic Panel (08/22/2025 9:22 AM EDT) [facility] Sodium 135 135 - 145 mmol/L [facility] Potassium 4.1 3.3 - 5.1 mmol/L [facility] Chloride 98 96 - 108 mmol/L [facility] Carbon Dioxide 30(H) 22 - 29 mmol/L [facility] Anion Gap 11(L) 12 - 20 [facility] Urea Nitrogen (BUN) 22(H) 9 - 16 mg/dL [facility] Creatinine, Serum 4.47(HH) 0.5 - 1.4 mg/dL [facility] Comment:Critical value for C REAT: Results called to and read backby: AMIRAH Person calling: KEVIN Date: 08/22/25 Time:0948 Creatinine Clr Calc Pharmacy TNP [facility] Comment:Unable to calculate eCrCL; all parameters not provided. Estimated Glomerular Filt Rate 14 [facility] Comment:Chronic Kidney Disea se: Estimated GFR < 60 mL/min/1.00u6Voepnd Kidney Disease: Estimated GFR < 15 mL/min/1.73m2 Glucose 161(H) 60 - 115 mg/dL [facility] Calcium 8.1(L) 8.4 - 10.2 mg/dL [facility] 08/22/2025 9:22 AM EDT 08/22/2025 9:25 AM EDT us Generic External Data Provider LAB BLOOD ORDERAB LES Final Result [facility] [address] [place] [phone] * (ABNORMAL) Drug Monitoring, Panel 1, Screen, Urine (08/22/2025 9:14 AM EDT) Opiate Screen Urine POSITIVE(A) Not Detect [facility] Comment:Opiate cut-off is 30 0 ng/mL.Positive results are unconfirmed and should not be used fornon-medical purposes. Barbiturates, Urine Not Detected Not Detect [facility] Comment:Barbiturate cut-off is 200 ng/mL.Positive results are unconfirmed and should not be used fornon-medical purposes. Phencyclidine Screen Urine Not Detected Not Detect [facility] Comment:Phencyclidine cut-of f is 25 ng/mL.Positive results are unconfirmed and should not be used fornon-medical purposes. Amphetamine Screen Urine Not Detected Not Detect [facility] Comment:Amphetamine cut-off is 1000 ng/mL.Positive results are unconfirmed and should not be used fornon-medical purposes. Benzodiazepines Screen Urine Not Detected Not Detect [facility] Comment:Benzodiazepine cut-o ff is 200 ng/mL.Positive results are unconfirmed and should not be used fornon-medical purposes. Cocaine Screen Urine POSITIVE(A) Not Detect [facility] Comment:Cocaine cut-off is 3 00 ng/mL.Positive results are unconfirmed and should not be used fornon-medical purposes. Cannabinoid Screen Urine Not Detected Not Detect [facility] Comment:Cannabinoid cut-off is 50 ng/mL.Positive results are unconfirmed and should not be used fornon-medical purposes. Methadone Screen, Urine Not Detected Not Detect ng/mL [facility] Comment:Methadone cut-off is 300 ng/mL.Positive results are unconfirmed and should not be used fornon-medical purposes. FENTANYL URINE POSITIVE(A) Not Detect [facility] Comment:Fentanyl cut-off is 1 ng/mL.Positive results are unconfirmed and should not be used fornon-medical purposes. Oxycodone Urine Screen Not Detected Not Detect ng/mL [facility] Comment:Oxycodone cut-off is 100 ng/mL.Positive results are unconfirmed and should not be used fornon-medical purposes. Buprenorphine Screen Not Detected Not Detect ng/mL [facility] Comment:Buprenorphine cut-of f is 5 ng/mL.Positive results are unconfirmed and should not be used fornon-medical purposes. 08/22/2025 9:14 AM EDT 08/22/2025 9:33 AM EDT us Generic External Data Provider LAB URINE ORDERAB LES Final Result [facility] [address] [place] [phone] * Blood Culture (First) (07/22/2025 1:45 PM EDT) Blood Venous blood specimen / Unknown 07/22/2025 1:45 PM EDT 07/22/2025 1:50 PM EDT Comment:Blood Narrative [facility] - 07/27/2025 3:50 PM EDT Blood Culture (First) No growth after 5 days. Specimen Source: Blood us Generic External Data Provider LAB MICROBIOLOGY - GENERAL ORDERABLES Final Result [facility] [address] [place] [phone] * (ABNORMAL) CBC auto differential (07/22/2025 1:45 PM EDT) White Blood Count 8.9 4.8 - 10.8 X10*3/uL [facility] Red Blood Count 3.78(L) 4.60 - 5.80 X10*6/uL [facility] Hemoglobin 11.1(L) 14.0 - 18.0 g/dl [facility] Hematocrit 34.2(L) 42.0 - 52.0 % [facility] Mean Corpuscular Volume 90.5 80.0 - 98.0 fL [facility] Mean Corpuscular Hemoglobin 29.4 27.0 - 33.0 pg [facility] Mean Corpuscular HGB Conc 32.5 31.0 - 36.0 g/dl [facility] Red Cell Distribution Width 13.4 11.0 - 16.0 % [facility] Platelet Count 255 160 - 400 X10*3/uL [facility] Mean Platelet Volume 10.5 9.4 - 12.4 fL [facility] Neutrophils Percent Auto 74.4(H) 45 - 73 % [facility] Imm Gran Pct Auto 0.3 0.0 - 0.4 % [facility] Lymphocytes Percent Auto 16.4(L) 20 - 40 % [facility] Monocytes Percent Auto 6.6 2 - 11 % [facility] Eosinophils Percent Auto 2.0 0 - 4 % [facility] Basophils Percent Auto 0.3 0 - 2 % [facility] NRBC Pct Auto 0.0 0.0 - 0.2 /100WBC [facility] Neutrophils Absolute Auto 6.6 2.0 - 8.3 x10*3/uL [facility] Imm Gran Abs Auto 0.03 0.00 - 0.03 X10*3/uL [facility] Lymphocytes Absolute Auto 1.5 1.2 - 4.9 X10*3/uL [facility] Monocytes Absolute Auto 0.6 0.1 - 1.2 X10*3/uL [facility] Eosinophils Absolute Auto 0.2 0.0 - 0.4 X10*3/uL [facility] Basophils Absolute Auto 0.0 0.0 - 0.2 X10*3/uL [facility] NRBC Abs Auto 0.000 0.0 - 0.012 X10*3/uL [facility] 07/22/2025 1:45 PM EDT 07/22/2025 1:50 PM EDT Generic External Data Provider LAB BLOOD ORDERAB LES Final Result Performing Organization Address [facility] Co de Phone Number [facility] [address] [place] [phone] * (ABNORMAL) Sed Rate by Modified Westergren (07/22/2025 1:45 PM EDT) Pathologist [facility] Erythrocyte Sedimentation Rate 88(H) 0 - 15 MM/HR [facility] Comment:Patients with polycy themia and many hemoglobin abnormalitiesmay have depressed sed rates whereas patients with anemiamay have elevated sed rates. 07/22/2025 1:45 PM EDT 07/22/2025 1:50 PM EDT Generic External Data Provider LAB BLOOD ORDERAB LES Final Result Performing Organization Address [facility] de Phone Number [facility] [address] [place] [phone] * (ABNORMAL) C-reactive Protein (07/22/2025 1:45 PM EDT) Pathologist [facility] C Reactive Protein 12.29(H) < or = 0.50 mg/dL [facility] 07/22/2025 1:45 PM EDT 07/22/2025 1:50 PM EDT us Generic External Data Provider LAB BLOOD ORDERAB LES Final Result [facility] [address] [place] [phone] * (ABNORMAL) Comprehensive Metabolic Panel (07/22/2025 1:45 PM EDT) Sodium 133(L) 135 - 145 mmol/L [facility] Potassium 3.7 3.3 - 5.1 mmol/L [facility] Chloride 96 96 - 108 mmol/L [facility] Carbon Dioxide 29 22 - 29 mmol/L [facility] Anion Gap 12 12 - 20 [facility] Urea Nitrogen (BUN) 26(H) 9 - 16 mg/dL [facility] Creatinine, Serum 4.41(HH) 0.5 - 1.4 mg/dL [facility] Comment:Critical value for C REAT: Results called to and read eduardo: KATRINA Person calling: JOCELIN Date: 07/22/25 Time: 1410 Creatinine Clr Calc Pharmacy 20.7 [facility] Comment:eGFR (calculated fro m the MDRD study equation) and eCrCl(calculated from the Cockcroft-Gault equation) are based ondifferent parameters and may not yield comparable results.If eCrCl result is absurd, please check patient'sheight/weight. Estimated Glomerular Filt Rate 14 [facility] Comment:Chronic Kidney Disea se: Estimated GFR < 60 mL/min/1.27n4Gwqsin Kidney Disease: Estimated GFR < 15 mL/min/1.73m2 Glucose 203(H) 60 - 115 mg/dL [facility] Calcium 8.3(L) 8.4 - 10.2 mg/dL [facility] Bilirubin, Total 0.3 0.0 - 1.0 mg/dL [facility] Aspartate Amino Transferase 28 5 - 37 U/L [facility] Alanine Aminotransferase <6 0 - 40 U/L [facility] Total Protein 8.3(H) 6.5 - 8.0 g/dL [facility] Albumin Level 3.0(L) 3.5 - 5.0 g/dL [facility] Alkaline Phosphatase 79 39 - 117 U/L [facility] 07/22/2025 1:45 PM EDT 07/22/2025 1:50 PM EDT us Generic External Data Provider LAB BLOOD ORDERAB LES Final Result Performing Organization Address City/State/[facility] Co de Phone Number [facility] [address] [place] [phone] * XR Tibia Fibula 2 Views Right (07/22/2025 1:15 PM EDT) Anatomical Region Laterality Modality Lower Extremities, Lower Leg Right Rad iographic Imaging 07/22/2025 1:15 PM EDT Narrative 07/22/2025 1:47 PM EDT [place] [address] XRay Report Signed with Ruiz Patient: Deandre Luong MR#: [id number] 3 : 1980 Acct:[id number] Age/Sex: 45 / M ADM Date: 07/22/25 Loc: HO.ED Attending Dr: Ordering Physician: Melissa Waters NP Date of Service: 07/22/25 Procedure(s): XR tibia fibula RT 2V Accession Number(s): [id number] cc: [facility]; Melissa Waters NP Reason for [...] 07/22/25 1345 DD/ 1315 TD/TT: 07/22/25 1320 Genetic Engineer: Procedure Note Donotuseinterpreter, Image - 07/22/[address] [address] XRay Report Signed with Addenda Patient: Deandre Luong [facility]#: [id number] 3 : 1980Acct:[id number] Age/Sex: 45 / MADM Date: 07/22/25 Loc: HO.ED Attending Dr: Ordering Physician: Melissa Waters NP Date of Service: 07/22/25 Procedure(s): XR tibia fibula RT 2V Accession Number(s): [id number] cc: [facility]; Melissa Waters NP Reason for [...] 07/22/25 1345 DD/ 1315 TD/TT: 07/22/25 1320 Genetic Engineer: [facility] External Provider IMG XR PROCEDURES Edited Result - Final * Blood Culture (Second) (07/22/2025 12:56 PM EDT) Blood Venous blood specimen / Unknown 07/22/2025 12:56 PM EDT 07/23/2025 9:21 AM EDT Comment:Blood Narrative [facility] - 07/23/2025 9:22 AM EDT Blood Culture (Second) Test not performed NO SPECIMEN RECEIVED. PATIENT DEPARTED ED Specimen Source: Blood Generic External Data Provider LAB MICROBIOLOGY - GENERAL ORDERABLES Final Result Performing Organization Address City/[facility]/ZIP Co de Phone Number [facility] [address] [place] [phone] * (ABNORMAL) POCT A1C (07/14/2023 1:40 PM EDT) Hemoglobin A1C 11.1(A) 4.0 - 6.0 % QC Media Lot # [id number] Lot# Expiration Date ,[id number] Blood 07/14/2023 1:40 PM EDT Awilda Walters [...] [facility] 12/13/2019 1:40 PM EST Rick Hurd MD HISTORICAL/NON ORDERABLE LABS Final Result [facility] [place] [address], * HM Hepatitis C Antibody (06/22/2019) Hepatitis C Antibody Nonreactive Blood Historical Provider HEALTH MAINTENANCE Final Result * HIV 1/2 Antigen and Antibody (06/22/2019) HIV Ag/Ab Nonreactive Historical Provider HEALTH MAINTENANCE Final Result from Last 3 Months or Most Recently Relevant to Health Maintenance Insurance
--- OUTSIDE RECORDS SUMMARY | 2025-09-04 08:57 | XMS_ITS | Encounter Summary ---
Author Organization [employer] Address [address] [place] [address] Care Team Providers Care Cadd Instructor Name Role Phone Cristina Stover MD Primary Care Provider +1- [phone] Cristina Stover MD Primary Care Provider +1- [phone] Cristina Stover MD Primary Care Provider +1- [phone] Reason for Visit * Reason Onset Date Comments PT1 05/30/2023 Encounter Details Date Type Department Care Team (Late st Contact Info) Description 05/30/2023 Telephone [facility] MEDICINE [address] [place] [address] Cristina Stover MD [address] [place] [address] [phone] PT1 Social History Tobacco Use Types Packs/Day [...] PT1 Date: 06/02/23 Time: 9 am address: [address] [place] [address] specialty: hospital f/u # visits: traveling inventory associate: n/a Wheelchair: yes documented in this encounter Plan of Treatment Not on file documented as of this encounter Visit Diagnoses Not on filedocumented in this encounter Care Teams Cadd Instructor Relationship Specialty Start Date End Date Cristina Stover MD [address] [place] [address] PCP - General Family Medicine 05/20/14 12/30/23 Cristina Stover MD [address] [place] [address] PCP - General Family Medicine 01/06/24 08/29/24 Cristina Stover MD [address] [place] [address] PCP - General Family Medicine 11/29/24 12/20/24 documented as of this encounter
--- OUTSIDE RECORDS SUMMARY | 2025-09-04 08:57 | XMS_ITS | Encounter Summary ---
Author Organization [employer] Address 75 [facility] 7t [place] [address] Care Team Providers Care Division Chair Name Role Phone Unavailable Primary Care Provider Unavailabl e Reason for Visit * Reason Comments Med Refill Encounter Details Date Type Department Care Team (Late st Contact Info) Description 07/27/2025 Refill [facility] CHC MED & PEDS [address] [place] [address] Cristina Stover MD [address] [place] [address] Type 2 diabetes mellitus with stage 3 [...] a refill for FREESTYLE LITE test strip. Non Licensed Nuclear Equipment Operator advised he not a pt we us as he has not been seen since 07/14/2023 and that he need to establish care again in regard of him to gethis test strip. Non Licensed Nuclear Equipment Operator toñito pt twice, no responded documented in [...]
--- OUTSIDE RECORDS SUMMARY | 2025-09-04 08:57 | XMS_ITS | Encounter Summary ---
Author Organization [employer] Address 75 [facility] 7t [place] [address] Care Team Providers Care Wrapper Rewinder Name Role Phone Unavailable Primary Care Provider Unavailabl e Reason for Visit * Reason Comments Med Refill Encounter Details Date Type Department Care Team (Late st Contact Info) Description 07/25/2025 Refill [facility] CHC MED & PEDS [address] [place] [address] Cristina Stover MD 230 [place] [address] Type 2 diabetes mellitus with stage 3 [...]
--- OUTSIDE RECORDS SUMMARY | 2025-09-04 08:57 | XMS_ITS | Encounter Summary ---
Author Organization [employer] Address [address] [facility] 7t [place] [address] Care Team Providers Care Java Grails Developer Name Role Phone Unavailable Primary Care Provider Unavailabl e Encounter Details Date Type Department Care Team (Latest Contact Info) Description 08/23/2025 Results Follow-Up [facility] MEDICINE [address] [place] [address] Cristina Stover MD [address] [place] [address] CBC, Prothrombin Time-INR, Partial Thromboplastin Time, Activated (APTT), Additional followed-up results: 3 Social History Tobacco Use Types Packs/Day Years [...]
--- OUTSIDE RECORDS SUMMARY | 2025-09-04 08:57 | XMS_ITS | Encounter Summary ---
Author Organization [employer] Address [address] [facility] [address] [address] Care Team Providers Care Tie Tamper Name Role Phone Cristina Stover MD Primary Care Provider +1- [phone] Cristina Stover MD Primary Care Provider +1- [phone] Cristina Stover MD Primary Care Provider +1- [phone] Encounter Details Date Type Department Care Team (Late st Contact Info) Description 06/04/2023 Orders Only [facility] MEDICINE [address] [place], [place] [phone] Cristina Stover MD [address] [place] [address] Uncomplicated opioid dependence (CMS/HCC); Polysubstance abuse (CMS/HCC); [...] type documented in this encounter Care Teams Tie Tamper Relationship Specialty Start Date End Date Cristina Stover MD [address] [place] [address] PCP - General Family Medicine 05/20/14 12/30/23 Cristina Stover MD [address] [place] [address] PCP - General Family Medicine 01/06/24 08/29/24 Cristina Stover MD [address] [place] [address] PCP - General Family Medicine 11/29/24 12/20/24 documented as of this encounter
--- OUTSIDE RECORDS SUMMARY | 2025-09-04 08:57 | XMS_ITS | Encounter Summary ---
Author Organization [facility] Address [address] [facility] [address] [place] [address] Phone Care Team Providers Care Optometrist/Practice Owner Name Role Phone Ck, Cristina Montano MD Primary Care Provider U navailable Reason for Visit * Reason Comments Med Refill Encounter Details Date Type Department Care Team (Late st Contact Info) Description 01/04/2022 Refill [facility] [address] [facility] [address] [place] [address] Rick Hurd MD [address] [facility] [address] [place] [address] Social History Tobacco Use Types [...] on filedocumented in this encounter Care Teams Optometrist/Practice Owner Relationship Specialty Start Date End Date [place], Cristina Montano MD PCP - General 11/13/20 documented as of this encounter
--- OUTSIDE RECORDS SUMMARY | 2025-09-04 08:57 | XMS_ITS | Encounter Summary ---
Author Organization [employer] Address 75 [facility] 7t [place] [address] Care Team Providers Care Income Tax Analyst Name Role Phone Cristina Stover MD Primary Care Provider +1- [phone] Cristina Stover MD Primary Care Provider +1- [phone] Cristina Stover MD Primary Care Provider +1- [phone] Encounter Details Date Type Department Care Team (Late st Contact Info) Description 01/17/2023 Orders Only [facility] MED & PEDS [address] [place], [place] [phone] Nay Benitez LPN Social History Tobacco Use [...] on filedocumented in this encounter Care Teams Income Tax Analyst Relationship Specialty Start Date End Date Cristina Stover MD [address] [place] [address] PCP - General Family Medicine 05/20/14 12/30/23 Cristina Stover MD [address] [place] [address] PCP - General Family Medicine 01/06/24 08/29/24 Cristina Stover MD [address] [place] [address] PCP - General Family Medicine 11/29/24 12/20/24 documented as of this encounter
--- OUTSIDE RECORDS SUMMARY | 2025-09-04 08:57 | XMS_ITS | Encounter Summary ---
Author Organization [employer] Address [address] [facility] 7 [place] [address] Care Team Providers Care Welding Systems And Equipment Repairer Name Role Phone Cristina Stover MD Primary Care Provider +1- [phone] Cristina Stover MD Primary Care Provider +1- [phone] Cristina Stover MD Primary Care Provider +1- [phone] Reason for Visit * Reason Comments Med Refill Encounter Details Date Type Department Care Team ([facility] st Contact Info) Description 05/26/2023 Refill [facility] [address] [place] [address] Araseli Rucker ANP [address] [place] [address] Social History Tobacco Use Types Packs/Day Years [...] on filedocumented in this encounter Care Teams Welding Systems And Equipment Repairer Relationship Specialty Start Date End Date Cristina Stover MD [address] [place] [address] PCP - General Family Medicine 05/20/14 12/30/23 Cristina Stover MD [address] [place] [address] PCP - General Family Medicine 01/06/24 08/29/24 Cristina Stover MD [address] [place] [address] PCP - General Family Medicine 11/29/24 12/20/24 documented as of this encounter
--- OUTSIDE RECORDS SUMMARY | 2025-09-04 08:57 | XMS_ITS | Encounter Summary ---
Author Organization [employer] Address 75 [facility] 7t [place] [address] Care Team Providers Care Research Nurse Name Role Phone Cristina Sotver MD Primary Care Provider +1- [phone] Cristina Stover MD Primary Care Provider +1- [phone] Cristina Stover MD Primary Care Provider +1- [phone] Encounter Details Date Type Department Care Team (Late st Contact Info) Description 11/19/2022 Orders Only [facility] MED & PEDS [address] [place], [place] [phone] Nay Benitez LPN Social History Tobacco Use [...] on filedocumented in this encounter Care Teams Research Nurse Relationship Specialty Start Date End Date Cristina Stover MD [address] [place] [address] PCP - General Family Medicine 05/20/14 12/30/23 Cristina Stover MD [address] [place] [address] PCP - General Family Medicine 01/06/24 08/29/24 Cristina Stover MD 230 [place] [address] PCP - General Family Medicine 11/29/24 12/20/24 documented as of this encounter
--- OUTSIDE RECORDS SUMMARY | 2025-09-04 08:57 | XMS_ITS | Encounter Summary ---
Author Organization [facility] Address [address] [place] [address] Phone Care Team Providers Care Lawn Care Technician Name Role Phone Ck, Cristina Motnano MD Primary Care Provider Randall meena Encounter Details Date Type Department Care Team (Late st Contact Info) Description 04/17/2022 Telephone [facility] [address] [place] [address] Rick Hurd MD [address] [facility] [address] [place] [address] Social History Tobacco Use Types [...] that process. Please call her back at [phone] documented in this encounter Plan of Treatment Not on file documented as of this encounter Visit Diagnoses Not on filedocumented in this encounter Care Teams Lawn Care Technician Relationship Specialty Start Date End Date Cristina Stover MD PCP - General 11/13/20 documented as of this encounter
--- OUTSIDE RECORDS SUMMARY | 2025-09-04 08:57 | XMS_ITS | Encounter Summary ---
Author Organization [employer] Address 75 [facility] 7t [place] [address] Care Team Providers Care Emergency Room Technician Name Role Phone Unavailable Primary Care Provider Unavailabl e Encounter Details Date Type Department Care Team (Late st Contact Info) Description 07/29/2025 Telephone [facility] MEDICINE 230 [place] [address] Kyle Mitchell MD [address] [place] [address] Social History Tobacco Use Types Packs/Day Years [...]
--- OUTSIDE RECORDS SUMMARY | 2025-09-04 08:57 | XMS_ITS | Encounter Summary ---
Author Organization [employer] Address 75 [facility] 7t [place] [address] Care Team Providers Care Camp Director Name Role Phone Unavailable Primary Care Provider Unavailabl e Reason for Visit * Reason Comments Med Refill Encounter Details Date Type Department Care Team (Late st Contact Info) Description 06/13/[address] [facility] CHC MED & PEDS [address] [place] [address] Araseli Rucker, ANP [address] [place] [address] Other insomnia Social History Tobacco Use Types [...]
--- OUTSIDE RECORDS SUMMARY | 2025-09-04 08:58 | XMS_ITS | Encounter Summary ---
Author Organization [employer] Address 75 [facility] 7t [place] [address] Care Team Providers Care Vp Rheumatology Name Role Phone Unavailable Primary Care Provider Unavailabl e Reason for Visit * Reason Comments Med Refill Encounter Details Date Type Department Care Team (Late st Contact Info) Description 04/06/2025 Refill [facility] MEDICINE 230 [place] [address] Cristina Stover MD [address] [place] [address] Social History Tobacco Use Types Packs/Day Years [...]
--- OUTSIDE RECORDS SUMMARY | 2025-09-04 08:58 | XMS_ITS | Encounter Summary ---
Author Organization [employer] Address [address] [facility] 7t [place] [address] Care Team Providers Care Restaurant Crew Name Role Phone Cristina Stover MD Primary Care Provider +1- [phone] Cristina Stover MD Primary Care Provider +1- [phone] Cristina Stover MD Primary Care Provider +1- [phone] Encounter Details Date Type Department Care Team (Late st Contact Info) Description 03/20/2023 Orders Only [facility] MED & PEDS [address] [place], [place] [phone] Nay Benitez LPN Social History Tobacco Use [...] on filedocumented in this encounter Care Teams Restaurant Crew Relationship Specialty Start Date End Date Cristina Stover MD [address] [place] [address] PCP - General Family Medicine 05/20/14 12/30/23 Cristina Stover MD [address] [place] [address] PCP - General Family Medicine 01/06/24 08/29/24 Cristina Stover MD [address] [place] [address] PCP - General Family Medicine 11/29/24 12/20/24 documented as of this encounter
--- OUTSIDE RECORDS SUMMARY | 2025-09-04 08:58 | XMS_ITS | Clinical Summary ---
Author Organization [facility] Address [address] [place] [address] Phone Care Team Providers Care Guard Sergeant Name Role Phone Cristina Stover MD Primary [...] on 05/20 Seen by Vascular surgery at [facility], missed POP appts. Has fu appt next week, urged to attend to be evaluated for leg prothesis. 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 Will rx transport wheelchair while he gets fitted with right leg prosthesis. 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 he was discharged against medical advice. Seen in [facility] 05/09/23 with repot of myoclonic spasms. Urine drug screen positive for opiates, fentanyl and cocaine.seen 05/11/23 in [facility] for continued abnormal movents and discharged home. Admitted to [facility] 05/12/23-05/14/23 for possible seizure activity. He presented [...] 9,1978,08/21 Influenza Split 07/29/2012 Influenza, Injectable, [place] Canine Kidney, Preservative Free 11/16/2015 Influenza, Quadrivalent, [...] Vaccine: 50+ Years Discontinued 6 Insurance Medicaid [place] Care Teams Guard Sergeant Relationship Specialty Start Date End Date Wright, Cristina Montano MD PCP - General 11/13/20
--- OUTSIDE RECORDS SUMMARY | 2025-09-04 08:58 | XMS_ITS | Encounter Summary ---
Author Organization [facility] Address [address] [facility] [address] [place] [address] Phone Care Team Providers Care Inspector Fabric Name Role Phone [place], Cristina Petersen MD Primary Care Provi jason Encounter Details Date Type Department Care Team (Late st Contact Info) Description 02/16/2022 Procedure Pass [facility], Ct Scan - [address] [address] Social History Tobacco Use Types Packs/Day Years [...] Orientation Straight 12/26/2018 1: 15 AM EST documented as of this encounter Functional Status * Calculated C-SSRS Risk Score (Lifetime/Recent) Answer Date of Assessment Author No Risk Indicated 02/16/2022 4:52 PM EDT Alan Gutiérrez RN * [place] Suicide Severity Rating Scale (Screener/Recent Self-Report) Question [...] on filedocumented in this encounter Care Teams Inspector Fabric Relationship Specialty Start Date End Date Ck, Cristina Petersen MD [address] [place] [address] PCP - General 08/19/17 documented as of this encounter Additional Source Comments The information contained in this document represents components of the legal health record. It is not the complete legal health record.[facility]
--- OUTSIDE RECORDS SUMMARY | 2025-09-04 08:58 | XMS_ITS | Encounter Summary ---
Author Organization [employer] Address [address] [facility] 7 [place] [address] Care Team Providers Care Registered Nursing Professor Name Role Phone Cristina Stover MD Primary Care Provider +1- [phone] Cristina Stover MD Primary Care Provider +1- [phone] Cristina Stover MD Primary Care Provider +1- [phone] Reason for Visit * Reason Onset Date Comments Hospital Follow-up 11/26/2023 Encounter Details Date Type Department Care Team ([facility] st Contact Info) Description 11/26/2023 Telephone [facility] MEDICINE [address] [place], [place] [phone] Cristina Stover MD [address] [place], [place] [phone] Hospital Follow-up Social History Tobacco Use Types [...] from pt requesting a HDF appt. Hospital: [facility] Date of admission: 11/16/2023 Discharge date: 11/25/2023 Diagnosed: Surgery (amputation) documented in this encounter Plan of Treatment Not on file documented as of this encounter Visit Diagnoses Not on filedocumented in this encounter Care Teams Registered Nursing Professor Relationship Specialty Start Date End Date Cristina Stover MD [address] [place] [address] PCP - General Family Medicine 05/20/14 12/30/23 Cristina Stover MD [address] [place] [address] PCP - General Family Medicine 01/06/24 08/29/24 Cristina Stover MD [address] [place] [address] PCP - General Family Medicine 11/29/24 12/20/24 documented as of this encounter
--- OUTSIDE RECORDS SUMMARY | 2025-09-04 08:58 | XMS_ITS | Encounter Summary ---
Author Organization [employer] Address [address] [facility] 7t [place] [address] Care Team Providers Care Sterile Processing Tech Name Role Phone Cristina Stover MD Primary Care Provider +1- [phone] Cristina Stover MD Primary Care Provider +1- [phone] Cristina Stover MD Primary Care Provider +1- [phone] Encounter Details Date Type Department Care Team (Late st Contact Info) Description 10/17/2023 Telephone [facility] MEDICINE 230 [place], [place] [phone] Cristina Stover MD [address] [place], [place] [phone] Social History Tobacco Use Types Packs/Day Years [...] mom of pt requesting Phone number of [facility] wheel chair clinic. PCP DR. Stover documented in this encounter Plan of Treatment Not on file documented as of this encounter Visit Diagnoses Not on filedocumented in this encounter Care Teams Sterile Processing Tech Relationship Specialty Start Date End Date Cristina Stover MD [address] [place] [address] PCP - General Family Medicine 05/20/14 12/30/23 Cristina Stover MD [address] [place] [address] PCP - General Family Medicine 01/06/24 08/29/24 Cristina Stover MD [address] [place] [address] PCP - General Family Medicine 11/29/24 12/20/24 documented as of this encounter
--- OUTSIDE RECORDS SUMMARY | 2025-09-04 08:58 | XMS_ITS | Clinical Summary ---
Author Organization [facility] Address [address] [facility] [address] [place] [address] Phone Care Team Providers Care Clerical Adjudicator Name Role Phone Cristina Stover MD Primary [...] Date/Time Associated Diagnosis Comments BASIC METABOLIC PANEL (BMP) STAT 02/16/2022 5:52 PM EDT from Last 3 Months or Most Recently Relevant to Health Maintenance Results * (ABNORMAL) Basic metabolic panel (02/16/2022 5:52 PM EDT) SODIUM 127(L) 133 - 146 mmol/L [facility] CHLORIDE 92(L) 96 - 108 mmol/L [facility] POTASSIUM 5.6(H) 3.3 - 5.1 mmol/L [facility] Comment:Specimen slightly he molyzed, result may be falsely elevated. CO2 27 21 - 35 mmol/L [facility] BUN 40(H) 6 - 19 mg/dL [facility] CREATININE 3.30(H) 0.5 - 1.5 mg/dL [facility] GLUCOSE 325(H) 70 - 99 mg/dL [facility] CALCIUM 9.7 8.4 - 10.3 mg/dL [facility] EGFR 23(L) >59 mL/min/1.7 3m2 [facility] Comment:Estimated glomerular filtration rate calculated using the CKD-EPI refit equation. ANION GAP 14 10 - 20 mmol/L [facility] Blood 02/16/2022 5:52 PM EDT 02/16/2022 6:00 PM EDT us Jeny Feldman MD LAB BLOOD BKR ORDERABLES Fin al Result [address] [address] from Last 3 Months or Most Recently Relevant to Health Maintenance Insurance C3 ACO C3 ACO C3 ACO C3 ACO C3 ACO C3 ACO C3 ACO C3 ACO Care Teams Clerical Adjudicator Relationship Specialty Start Date End Date Ck, Cristina Petersen MD [address] [place] [address] PCP - General 08/19/17 Additional Source Comments The information contained in this document represents components of the legal health record. It is not the complete legal health record.[facility]
[2025-09-04 09:10] LABS: Glucose, Whole Blood 98 mg/dL (60-115)
[2025-09-04] MEDS: iohexoL 350 MG/ML 100 ML INFUS..BTL IV (09:28)
--- NOTE | 2025-09-04 09:28 | ECG_ITS ---
Test Reason : REPEAT Blood Pressure : */* mmHG Vent. Rate : 119 BPM Atrial Rate : 120 BPM P-R Int : 176 ms QRS Dur : 88 ms QT Int : 310 ms P-R-T Axes : * -9 -2 degrees QTcB Int : 436 ms Sinus tachycardia Minimal voltage criteria for LVH, may be normal variant ( [place] product ) Anterior infarct , age undetermined Abnormal ECG When compared with ECG of 04-Sep-2025 08:11, Due to artifact in prior EKG, cannot compare Referred By: Ame Bragg Electronically Signed By: SHIVANI ALATORRE
[2025-09-04] MEDS: levETIRAcetam in NaCl (iso-os) 1,000 MG/100 ML PIGGYBACK 400 MG IV (09:43)
--- NOTE | 2025-09-04 09:56 | P.HPCC_ITS ---
History of Present Illness Date of Service: 09/04/25 Attending physician on admission: Shanelle Iverson Chief Complaint: Acute Hypoxic Respiratory Failure Patient is a 42 Y M w/ hypertension, hyperlipidemia, diabetes mellitus, c/b ESRD, on hemodialysis M/W/F, and COPD, presenting to ED on 09/04 w/ agitation; of note, patient reportedly obtunded, given naloxone by EMS, subsequently became agitated; ED work-up suggestive of pneuomonia and possible cervical osteomyelitis; ED course c/b persistent agitation, necessitating escalating sedation, c/b respiratory depression, intubated Review of Systems 2 Review of Systems: Yes unobtainable due to endotracheal tube, Unobtainable due to mental condition and Unobtainable due to mental status PMFSH Past Medical History Medical History (Updated 09/04/25 @ 11:21 by Ame Bragg MD) Opioid use disorder, severe, dependence Anemia in chronic kidney disease (CKD) ESRD (end stage renal disease) on dialysis Cardiomyopathy Pericardial effusion Leukocytosis Transfusion history Atrial flutter, paroxysmal COPD (chronic obstructive pulmonary disease) Constipation Callus of foot Seizure Polysubstance abuse CKD (chronic kidney disease) stage 3, GFR 30-59 ml/min Foot osteomyelitis, left Amputation of toe of right foot Diabetic ulcer of right foot Sleep apnea Diabetes HTN (hypertension) Surgical History Surgical History History of surgery on arm History of surgery History of surgery 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 History of surgical procedure (~04/24/23) Social History Social History (Updated 08/18/25 @ 09:04 by Ninfa Carroll RN) Household Members: Family Household Members Other:: mother Housing: Apartment Are you a primary palliative care nurse to a significant other at home: No Do you presently have visiting nurse or other home services: No Alcohol intake: former Comment: right BKA & left transmetatarsal amputation Patient Tobacco Use Status: Current everyday Tobacco user Tobacco use type: Cigarette Cigarette Packs Per Day: 0.5 Cigarettes Per Day: 6 Years Smoked: 33 e-Cigarette/Vaping Use: Currently Using Second Hand Smoke Exposure: Yes Use of substances other than those prescribed or required for medical reasons: Yes Substance Use Type: Crack/Cocaine and Heroin Advance Directives: No Advance Directives Information Provided: Yes Do you have a plan to hurt others: Vague service: No Meds Allergies Allergy/AdvReac Type Severity Reaction Status Date / Time No Known Allergies (No Known Allergy Verified 09/04/25 07:59 Allergies*) Active Medications: Current Medications Heparin Sodium (Porcine) (Heparin Sodium,Porcine 5,000 Unit/Ml Vial) 5,000 unit SUBCUT Q8H [facility] Fentanyl (Sublimaze/Ns) 1,000 mcg in 100 mls @ 0 mls/hr IVCONT .Q0M LYSSA; Protocol Last Admin: 09/04/25 08:57 Dose: 25 mcg/hr, 2.5 mls/hr Propofol (Diprivan) 1,000 mg in 100 mls @ 0 mls/hr IVCONT .Q0M LYSSA; Protocol Last Admin: 09/04/25 08:52 Dose: 30 mcg/kg/min, 13.84 mls/hr Cefepime HCl 1 gm/ Sodium (Chloride) 50 mls @ 100 mls/hr IV ONCE ONE Stop: 09/04/25 09:57 Vancomycin HCl (Vancomycin/Ns) 2,000 mg in 500 mls @ 250 mls/hr IV ONCE ONE Stop: 09/04/25 11:59 Pantoprazole Sodium 40 mg/ (Sodium Chloride) 110 mls @ 400 mls/hr IV DAILY@0630 [facility] Piperacillin Sod/Tazobactam (Sod 4.5 gm/ Sodium Chloride) 100 mls @ 200 mls/hr IV Q8H [facility] Pharmacy Consult (Consult Rx Vancomycin Dosing) 1 each MISCELLANE DAILY PRN PRN Reason: Consult order Physical Exam 2 Vital Signs: Vital Signs: Last Vital Signs Temp 98 F 09/04/25 08:29 Pulse 122 H 09/04/25 08:57 Resp 18 09/04/25 08:57 BP 231/124 H 09/04/25 08:57 Pulse Ox 100 09/04/25 08:54 O2 Del Method Ambu-Bag 09/04/25 08:54 FiO2 40 09/04/25 09:34 BMI result Body Mass Index 24.3 Const: Other: intubated, sedated General: no acute distress HEENT: Head: Yes normal to inspection, Yes normocephalic and Yes atraumatic Eyes: General: appearance normal, both eyes and all related structures Neck: Neck: Yes normal visual inspection, Yes full ROM, Yes no meningeal signs, Yes trachea midline and Yes supple Chest: Chest palpation & inspection: normal inspection of the chest Resp: Other: no appreciable overt rales, rhonchi, wheezing Effort & Inspection: normal respiratory effort Cardio: Rate: regular rate Rhythm: regular rhythm GI: Inspection: Yes normal to inspection, No Abdominal wall edema and No distended Palpation (GI): Soft to palpation, not firm, nontender, no guarding and not rigid Skin: Other: scattered abrasions throughout Neuro: General: tone normal, moves all extremities and no meningeal signs Extrem: Other: multiple lower extremity amputations General: Yes full ROM and Yes capillary refill normal Psych: Other: unable to assess Results Labs 09/04/25 08:13 09/04/25 08:17 Labs: Laboratory Results - last 24 hr 09/04/25 09/04/25 09/04/25 07:59 08:13 08:16 MCV 91.3 MCH 29.1 MCHC 31.9 RDW 14.7 Plt Count 242 D MPV 11.3 Immature Gran % (Auto) 0.3 Neut % (Auto) 68.6 Lymph % (Auto) 22.5 [place] % (Auto) 7.0 Eos % (Auto) 1.4 Baso % (Auto) 0.2 Lymph # (Auto) 2.5 [place] # (Auto) 0.8 Eos # (Auto) 0.2 Baso # (Auto) 0.0 Abs Immat Gran (auto) 0.03 Absolute Neuts (auto) 7.7 Absolute Nucleated RBC 0.000 Nucleated RBC % (auto) 0.0 PT 11.5 INR 1.0 VBG pH VBG pCO2 VBG pO2 VBG HCO3 VBG O2 Saturation VBG Base Excess Anion Gap Estim Creat Clear Calc Estimated GFR POC Glucose 98 Random Glucose Lactic Acid Calcium 8.8 D Magnesium Total Creatine Kinase Troponin I High Sens 200.6 H* D Lipase Ethyl Alcohol < 10 09/04/25 09/04/25 08:17 08:23 MCV MCH MCHC RDW Plt Count MPV Immature Gran % (Auto) Neut % (Auto) Lymph % (Auto) [place] % (Auto) Eos % (Auto) Baso % (Auto) Lymph # (Auto) [place] # (Auto) Eos # (Auto) Baso # (Auto) Abs Immat Gran (auto) Absolute Neuts (auto) Absolute Nucleated RBC Nucleated RBC % (auto) PT INR VBG pH 7.45 H VBG pCO2 38 VBG pO2 69 VBG HCO3 26 VBG O2 Saturation 93.0 VBG Base Excess 2.9 Anion Gap 19 Estim Creat Clear Calc 15.2 Estimated GFR 10 POC Glucose Random Glucose 104 Lactic Acid 1.6 Calcium 9.1 Magnesium 2.9 H Total Creatine Kinase 134 Troponin I High Sens Lipase 12 Ethyl Alcohol Assessment and Plan (1) Encephalopathy: Status: Acute (2) Pneumonia: Status: Acute (3) Acute respiratory failure: Qualifiers: Respiratory failure complication: unspecified whether with hypoxia or hypercapnia Qualified Code(s): J96.00 - Acute respiratory failure, unspecified whether with hypoxia or hypercapnia Status: Resolved Plan Patient is a 42 Y M w/ hypertension, hyperlipidemia, diabetes mellitus, c/b ESRD, on hemodialysis M/W/F, presenting to ED on 09/04 w/ agitation; ED work-up suggestive of pneumonia; ED course c/b persistent agitation, necessitating escalating sedation, c/b respiratory depression, intubated N: intubated, sedated w/ propofol, fentanyl gtts, wean as tolerated; encephalopathy, likely toxic-metabolic CV: no acute issues; to closely monitor hemodynamics R: acute respiratory failure, likely multifactorial, d/t pneumonia, sedation, intubated 09/04, wean as tolerated GI: NPO : ESRD, last HD session reportedly 09/02, to monitor renal indices/electrolytes H: no acute issues, chemical DVT prophylaxis ID: c/f pneumonia, empiric vanc/zosyn; of note, CT neck w/ possible osteomyleitis E: diabetes mellitus, insulin sliding scale P: no acute issues
[2025-09-04 10:31] LABS: Acetaminophen LAB < 3 mcg/mL (<30); Salicylate < 5.0 mg/dL (15-30)
[2025-09-04 10:31] LABS: Appearance Urine Clear; Glucose Urine UA 250 mg/dL (Negative); PH >= 9.0 (5.0-9.0); Specific Gravity - Urine 1.010 (1.005-1.025); UMIC TRIGGER UACC YES
--- NOTE | 2025-09-04 10:31 | PHA.MEDREC ---
Addendum entered by Ratna Lucas [facility] 09/04/25 10:36: Provider Dr Iverson was made aware. Original Note: Pharmacy Consult ? Medication Reconciliation Pharmacy has completed the medication reconciliation. Due to patients condition, medication list is unobtainable. Utilized pharmacy claims. Of [facility] and [facility], neither have any fills for insulin within the last two years however I believe this patient is a diabetic. Will relay this information to patients provider.
[2025-09-04 10:43] LABS: Cannabinoid Screen Urine Not Detected (Not Detect)
[2025-09-04 10:44] LABS: Troponin-I High Sensitivity 194.7 ng/L (<3.5-35.0)
--- NOTE | 2025-09-04 10:50 | PC.NURSE ---
LATE ENTRY: Pt arrived via EMS, noted to be yelling and flopping on stretcher, AMS. Story from EMS: Bystander on scene at apartment called for agonal breathing, drug paraphernalia on scene including crack, known heroin user. PD gave pt 4 mg of narcan.Bystander also reported some possible seizure like activity that morning, unclear if pt has seizure activity. Also reported that pt fell and hit his head day prior, not seen after, no blood thinner usage, unclear about full story. Pt arrived noted to be yelling and severely restless and agitated. Pt medicated per MAR with Ketamine. Blood and trauma noted to pts tongue. 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 Dialysis port on right chest with no covering or sutures. Unknown when last dialysis treatment was, no fistulas noted. No obvious head trauma. Pt diaphoretic. RNs and MD witnessed 2 seizure episodes with tonic acitvity, biting tongue and tachycardia. IV versed given. At this point, MD made decision to intubate due to pt unable to protect airway. Intubation: Dr Bragg, RT, mutliple RTs and techs 0840 50mg of ketamine IV 0845 20mg etomidate IVP & 100 mg of Kishor IVP 0848 intubated, 7.5 ETT, + colormetric, 25 at lip, + End tidal CO2 0852 propofol drip started at 30 0857 fentanyl drip started at 25 mcg/hr 0900 OG tube placed, dark red/brown fluid draining XRAY at bedside, ETT placement confirmed by MD IV: 18G in left AC & 18G in right forearm. (EJ on right side pulled out by mistake) Cid: 16 tamazight, immediate output 100 mL clear yellow urine This RN accompanied pt to CT scan, pt remained stable with stable vitals, no complications. Vent settings: RR 16, FiO2 40%, TV 400, Peep 5 Monitor: sinus tach with peaked T waves. BP remained hypertensive Meds per MAR. Linens and clothing changed, pt appears comfortable and well-sedated. Blankets placed on pt. Dialysis port covered with dressing. Right BKA extremity wrapped, small amount of blood noted from wound. REPORT GIVEN TO YARELI HUSSEIN IN ICU, PT TRANSFERRED OVER WITH RNS, RT AND TRANSPORT WITH NO INCIDENTS.
[2025-09-04 11:48] LABS: Resp Syncy Virus RNA Qual PCR NEGATIVE (Negative); SARS COV2 PCR INHOUSE NEGATIVE (Negative)
[2025-09-04 12:49] LABS: Glucose, Whole Blood 164 mg/dL (60-115)
[2025-09-04] MEDS: vancomycin/NS 2,000 MG/500 ML PLAST..BAG 250 MG IV (13:09)
[2025-09-04 18:17] LABS: Glucose, Whole Blood 80 mg/dL (60-115)
--- NOTE | 2025-09-04 19:15 | HO.SKINPHOTO ---
Location: Thoracic Category: Healed PI and Small Abrasion Location: Coccyx Category: Pressure Injury Stage: Unstagable Location: Perianal Type: ?blister vs abrasions Location: Right Leg Category: BKA Stage: Healing
--- NOTE | 2025-09-04 19:27 | PC.NURSE ---
Patient arrived with 16fr verde catheter from the ED. Patient was voiding large amounts of urine around the Catheter. Catheter replaced this afternoon. When inflated to 10cc catheter was leaking urine around it. Instilled another 8cc equalling 18cc in the catheter balloon total. Successfully prevented further leaking around the cath.
[2025-09-04 20:02] LABS: Glucose, Whole Blood 80 mg/dL (60-115)
[2025-09-04 21:28] LABS: Thyroid Stimulating Hormone 0.68 uIU/mL (0.32-4.0)
[2025-09-04] MEDS: Erythromycin Base 0.5% Oph Oin 1 GM TUBE 1 CM EYE-BOTH (21:48)
[2025-09-04] MEDS: Artificial Tears 15 ML DROPS 2 DROP EYE-BOTH (21:48)
[2025-09-05] VITALS (33 sets, daily range): BP systolic 95–156; BP diastolic 54–83; PULSE 66–82; RESP 15–17; TEMP 34.5–37.4; O2SAT 92–100; BMI 25.2
[2025-09-05] MEDS: fentaNYL citrate/NS 1,000 MCG/100 ML PLAST..BAG 12.5 MCG IVCONT (00:29)
[2025-09-05 00:30] LABS: Glucose, Whole Blood 76 mg/dL (60-115)
[2025-09-05 04:51] LABS: VBG HCO3 23 mmol/L (22-26); VBG O2 % Saturation 99.0 %
[2025-09-05 04:57] LABS: Venous Blood Gas Refer to POC result
[2025-09-05 05:10] LABS: MANUAL DIFF FLAG NO
[2025-09-05 05:11] LABS: Hematocrit 31.2 % (42.0-52.0); Hemoglobin 9.7 g/dl (14.0-18.0); Imm Gran Abs Auto 0.02 X10*3/uL (0.00-0.03); Imm Gran Pct Auto 0.3 % (0.0-0.4); Lymphocytes Absolute Auto 1.6 X10*3/uL (1.2-4.9); Mean Corpuscular HGB Conc 31.1 g/dl (31.0-36.0); Mean Corpuscular Hemoglobin 28.6 pg (27.0-33.0); Mean Corpuscular Volume 92.0 fL (80.0-98.0); NRBC Abs Auto 0.000 X10*3/uL (0.0-0.012); NRBC Pct Auto 0.0 /100WBC (0.0-0.2); Platelet Count 228 X10*3/uL (160-400); Red Blood Count 3.39 X10*6/uL (4.60-5.80); White Blood Count 7.7 X10*3/uL (4.8-10.8)
[2025-09-05 05:46] LABS: Albumin Level 2.7 g/dL (3.5-5.0); Anion Gap 17 (12-20); Blood Urea Nitrogen 56 mg/dL (9-16); Calcium 7.9 mg/dL (8.4-10.2); Carbon Dioxide 22 mmol/L (22-29); Chloride 101 mmol/L (96-108); Creatinine Clr Calc Pharmacy 13.1; Estimated Glomerular Filt Rate 8; Magnesium 3.2 mg/dL (1.6-2.6); Potassium 4.2 mmol/L (3.3-5.1); Sodium 136 mmol/L (135-145)
[2025-09-05 06:56] LABS: Glucose, Whole Blood 97 mg/dL (60-115)
[2025-09-05] MEDS: Albumin Human 25 % 50 ML 100 ML IV ×2 (07:39→07:54)
[2025-09-05] MEDS: 0.9 % Sodium Chloride Flush 3 ML SYRINGE IVFLUSH ×3 (07:39→22:13)
[2025-09-05] MEDS: Artificial Tears 15 ML DROPS 2 DROP EYE-BOTH ×2 (07:55→19:53)
[2025-09-05] MEDS: fentaNYL citrate/NS 1,000 MCG/100 ML PLAST..BAG 15 MCG IVCONT ×3 (08:09→21:12)
[2025-09-05] MEDS: Erythromycin Base 0.5% Oph Oin 1 GM TUBE 1 CM EYE-BOTH ×3 (08:10→19:53)
--- NOTE | 2025-09-05 11:03 | PM.CCPN ---
Subjective Subjective Date of Service: 09/05/25 Interval History: 45-year-old gentleman with underlying diabetes mellitus with end-stage renal disease on hemodialysis, COPD, opioid dependence, seizures, paroxysmal a flutter, cardiomyopathy admitted on 12/2024 with cocaine/opioids overdose further complicated by aspiration requiring intubation and ventilatory support. ER workup was significant for suspicion of cervical osteomyelitis. Critical Care Time (minutes): 60 Physical Exam Vital Signs: Vital Signs: Last Vital Signs Temp 96.3 F L 09/05/25 10:00 Pulse 73 09/05/25 10:00 Resp 16 09/05/25 10:00 BP 129/71 09/05/25 10:00 Pulse Ox 98 09/05/25 10:00 O2 Del Method Mechanical Ventil ation 09/05/25 10:00 O2 Flow Rate 30 09/04/25 16:00 FiO2 30 09/05/25 10:00 BMI result Body Mass Index 25.2 Const: General: no acute distress, alert and awake Eyes: Sclerae: sclerae normal EOM: EOMs intact bilaterally Neck: Neck: Yes no lymphadenopathy, Yes trachea midline and Yes supple Resp: Effort & Inspection: normal respiratory effort and no respiratory distress Auscultation: clear to auscultation bilaterally Cardio: Rate: regular rate Rhythm: regular rhythm Heart sounds: no gallops, no murmurs and no rubs GI: Palpation (GI): Soft to palpation and Other GI palpation findings present ( Nontender) Auscultation: normal bowel sounds Extrem: General: No clubbing, No cyanosis and Yes other (Right BKA, left TMA) Objective Data Labs 09/05/25 04:45 09/05/25 04:45 Labs: Laboratory Results - last 24 hr 09/04/25 09/04/25 09/04/25 09:59 11:02 12:40 WBC RBC Hgb Hct MCV MCH MCHC RDW Plt Count MPV Immature Gran % (Auto) Neut % (Auto) Lymph % (Auto) [place] % (Auto) Eos % (Auto) Baso % (Auto) Lymph # (Auto) [place] # (Auto) Eos # (Auto) Baso # (Auto) Abs Immat Gran (auto) Absolute Neuts (auto) Absolute Nucleated RBC Nucleated RBC % (auto) VBG pH VBG pCO2 VBG pO2 VBG HCO3 VBG O2 Saturation VBG Base Excess Sodium Potassium Chloride Carbon Dioxide Anion Gap BUN Creatinine Estim Creat Clear Calc Estimated GFR POC Glucose 164 H Random Glucose Calcium Phosphorus Magnesium Albumin TSH 0.68 Influenza Type A (PCR) NEGATIVE Influenza Type B (PCR) NEGATIVE RSV RNA Qual (PCR) NEGATIVE SARS-CoV-2 RNA (RT-PCR) NEGATIVE 09/04/25 09/04/25 09/05/25 18:12 19:58 00:15 WBC RBC Hgb Hct MCV MCH MCHC RDW Plt Count MPV Immature Gran % (Auto) Neut % (Auto) Lymph % (Auto) [place] % (Auto) Eos % (Auto) Baso % (Auto) Lymph # (Auto) [place] # (Auto) Eos # (Auto) Baso # (Auto) Abs Immat Gran (auto) Absolute Neuts (auto) Absolute Nucleated RBC Nucleated RBC % (auto) VBG pH VBG pCO2 VBG pO2 VBG HCO3 VBG O2 Saturation VBG Base Excess Sodium Potassium Chloride Carbon Dioxide Anion Gap BUN Creatinine Estim Creat Clear Calc Estimated GFR POC Glucose 80 80 76 Random Glucose Calcium Phosphorus Magnesium Albumin TSH Influenza Type A (PCR) Influenza Type B (PCR) RSV RNA Qual (PCR) SARS-CoV-2 RNA (RT-PCR) 09/05/25 09/05/25 09/05/25 04:45 04:47 06:52 WBC 7.7 RBC 3.39 L Hgb 9.7 L Hct 31.2 L MCV 92.0 MCH 28.6 MCHC 31.1 RDW 15.0 Plt Count 228 MPV 10.7 Immature Gran % (Auto) 0.3 Neut % (Auto) 69.7 Lymph % (Auto) 21.0 [place] % (Auto) 6.5 Eos % (Auto) 2.1 Baso % (Auto) 0.4 Lymph # (Auto) 1.6 [place] # (Auto) 0.5 Eos # (Auto) 0.2 Baso # (Auto) 0.0 Abs Immat Gran (auto) 0.02 Absolute Neuts (auto) 5.4 Absolute Nucleated RBC 0.000 Nucleated RBC % (auto) 0.0 VBG pH 7.44 H VBG pCO2 34 VBG pO2 105 VBG HCO3 23 VBG O2 Saturation 99.0 VBG Base Excess 0.1 Sodium 136 Potassium 4.2 Chloride 101 Carbon Dioxide 22 Anion Gap 17 BUN 56 H Creatinine 7.19 H* Estim Creat Clear Calc 13.1 Estimated GFR 8 POC Glucose 97 Random Glucose 64 Calcium 7.9 L D Phosphorus 6.6 H Magnesium 3.2 H Albumin 2.7 L TSH Influenza Type A (PCR) Influenza Type B (PCR) RSV RNA Qual (PCR) SARS-CoV-2 RNA (RT-PCR) Microbiology Microbiology Results: Microbiology 09/04/25 08:17 Blood - Venous Blood Culture - Preliminary No growth after 24 hours. 09/04/25 08:13 Blood - Venous Blood Culture - Preliminary Prelim: GPC Gram Stain only Prelim: GPR Gram Stain only Progress Note: A&P Assessment and plan (1) Polysubstance abuse: Status: Acute (2) ESRD (end stage renal disease): Status: Acute (3) PVD (peripheral vascular disease): Status: Acute (4) Pulmonary aspiration: Status: Acute (5) Diabetes: Status: Acute Plan Assessment: 42-year-old gentleman with underlying diabetes mellitus, ESRD on hemodialysis, PVD, polysubstance abuse admitted with polysubstance abuse further complicated by pulmonary aspiration requiring intubation and ventilatory support Plan: Neuro: Toxic encephalopathy secondary to polysubstance abuse: Continue to titrate off sedative drips as tolerated. Cardiac: No acute issues. Pulmonary: Acute hypoxic respiratory failure on the background of pulmonary aspiration requiring ventilatory support, continue to titrate off as tolerated. Renal: ESRD on hemodialysis, nephrology service care appreciated. Endo: No acute issues. GI: No acute issues. ID: Suspicion for cervical osteomyelitis, tadged cells/SPECT CT scan is pending. Pulmonary aspiration. Continue empiric antibiotics. Heme/Onc: No acute issues. Psych: No acute issues. Miscellaneous: No acute issues. Prophylaxis: Heparin, ppi Diet: Tube feeds Critical care time spent: 60 minutes Quality Stroke Does the patient have a stroke diagnosis?: No VTE Prior VTE?: No VTE Risk Level:: Medical - moderate - high VTE Device Contraindication: N/A - Device Ordered VTE Drug Contraindication: N/A - Med Ordered
--- NOTE | 2025-09-05 11:12 | MHC.CLN ---
PT REQUIRES TF FOR NUTRITION SUPPORT R/T PROLONGED NPO STATUS PT IS INTUBATED AND SEDATED PT IS CURRENTLY NPO RECOMMEND NEPRO TF AT MAX GOAL RATE 45ML/HR TO PROVIDE 1944KCALS (2553KCALS WITH SEDATION; 32KCALS/KG), 87G PROTEIN (1.10G/KG), 785ML FREE WATER MONITOR TOLERANCE AND LYTES SEE FULL ASSESSMENT
[2025-09-05 11:20] LABS: Glucose, Whole Blood 56 mg/dL (60-115)
[2025-09-05 11:35] LABS: Glucose, Whole Blood 153 mg/dL (60-115)
--- NOTE | 2025-09-05 13:00 | P.CONNP_ITS ---
History of Present Illness Reason for Consult Consult date: 09/05/25 Reason for consult: ESRD Chief Complaint Chief complaint: acute respiratory failure History of Present Illness Narrative: 42 Y M w/ hypertension, hyperlipidemia, diabetes mellitus, c/b ESRD, on hemodialysis M/W/F, and COPD, presenting to ED on 09/04 w/ agitation; of note, patient reportedly obtunded, given naloxone by EMS, subsequently became agitated; ED work-up suggestive of pneuomonia and possible cervical osteomyelitis; ED course c/b persistent agitation, necessitating escalating sedation, c/b respiratory depression, intubated PMFSH Past Medical History Medical History (Updated 09/05/25 @ 11:06 by Ken Melendez MD) Opioid use disorder, severe, dependence Anemia in chronic kidney disease (CKD) ESRD (end stage renal disease) on dialysis Cardiomyopathy Pericardial effusion Leukocytosis Transfusion history Atrial flutter, paroxysmal COPD (chronic obstructive pulmonary disease) Constipation Callus of foot Seizure Polysubstance abuse CKD (chronic kidney disease) stage 3, GFR 30-59 ml/min Foot osteomyelitis, left Amputation of toe of right foot Diabetic ulcer of right foot Sleep apnea Diabetes HTN (hypertension) Surgical History Surgical History History of surgery on arm History of surgery History of surgery 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 History of surgical procedure (~04/24/23) Social History Social History (Updated 08/18/25 @ 09:04 by Ninfa Carroll RN) Household Members: Family Household Members Other:: Mother Housing: Unknown / Unable to assess Are you a primary primary health care nurse to a significant other at home: No Alcohol intake: former Comment: right BKA & left transmetatarsal amputation Patient Tobacco Use Status: Tobacco use Unknown Tobacco use type: Cigarette Cigarette Packs Per Day: 0.5 Cigarettes Per Day: 6 Years Smoked: 33 e-Cigarette/Vaping Use: Currently Using Second Hand Smoke Exposure: Yes Use of substances other than those prescribed or required for medical reasons: Yes Substance Use Type: Crack/Cocaine and Heroin Currently Displaying Signs/Symptoms of Drug Intoxication Withdrawal: No Advance Directives: No Advance Directives Information Provided: Yes Do you have a plan to hurt others: No Plan Poor oral hygiene: Yes service: No Meds Allergies Allergy/AdvReac Type Severity Reaction Status Date / Time No Known Allergies (No Known Allergy Verified 09/04/25 07:59 Allergies*) Active Medications: Current Medications Artificial Tears (Artificial Tears 15 Ml Drops) 2 drop EYE-BOTH Q4H PRN PRN Reason: Dry Eyes Last Admin: 09/05/25 07:55 Dose: 2 drop Chlorhexidine Gluconate (Chlorhexidine Gluc Oral Rinse 15 Ml Mouthwash) 15 ml BUCCAL TID LYSSA Dextrose (Dextrose 50 % 25 Gm/50 Ml Syringe) 25 gm IVPUSH Q15M PRN; Protocol PRN Reason: per Hypoglycemia Standing Ord. Last Admin: 09/05/25 11:20 Dose: 25 gm Erythromycin (Erythromycin Base 0.5% Oph Oin 1 Gm Tube) 1 cm EYE-BOTH TID LYSSA Last Admin: 09/05/25 08:10 Dose: 1 cm Glucose (Glucose Gel 15 Gm Gel..Gram.) 15 gm PO Q15M PRN; Protocol PRN Reason: per Hypoglycemia Standing Ord. Heparin Sodium (Porcine) (Heparin Sodium,Porcine 5,000 Unit/Ml Vial) 5,000 unit SUBCUT Q8H [facility] Last Admin: 09/05/25 09:58 Dose: 5,000 unit Fentanyl (Sublimaze/Ns) 1,000 mcg in 100 mls @ 0 mls/hr IVCONT .Q0M [facility]; Protocol Last Admin: 09/05/25 08:09 Dose: 150 mcg/hr, 15 mls/hr Propofol (Diprivan) 1,000 mg in 100 mls @ 0 mls/hr IVCONT .Q0M [facility]; Protocol Last Admin: 09/05/25 09:58 Dose: 50 mcg/kg/min, 23.07 mls/hr Pantoprazole Sodium 40 mg/ (Sodium Chloride) 110 mls @ 400 mls/hr IV DAILY@0630 [facility] Last Infusion: 09/05/25 06:12 Dose: Infused Piperacillin Sod/Tazobactam (Sod 4.5 gm/ Sodium Chloride) 100 mls @ 200 mls/hr IV Q12H [facility] Last Infusion: 09/05/25 12:29 Dose: Infused Vancomycin HCl 500 mg/ Sodium (Chloride) 110 mls @ 110 mls/hr IV Q24H [facility] Insulin Human Lispro (Insulin Lispro 100 Unit/Ml 3 Ml Vial) 0 unit SUBCUT Q6H [facility]; Protocol Last Admin: 09/05/25 11:24 Dose: Not Given Pharmacy Consult (Consult Rx Vancomycin Dosing) 1 each MISCELLANE DAILY PRN PRN Reason: Consult order Sodium Chloride (0.9 % Sodium Chloride Flush 3 Ml Syringe) 3 ml IVFLUSH QSHIFT [facility] Last Admin: 09/05/25 07:39 Dose: 3 ml Physical Exam Vital Signs: Last Vital Signs Temp 96.3 F L 09/05/25 12:00 Pulse 68 09/05/25 12:00 Resp 16 09/05/25 12:00 BP 112/62 09/05/25 12:00 Pulse Ox 96 09/05/25 12:00 O2 Del Method Mechanical Ventilation 09/05/25 12:00 O2 Flow Rate 30 09/04/25 16:00 FiO2 30 09/05/25 12:00 BMI result Body Mass Index 25.2 Const General: ill appearing Neck Neck: Yes supple Resp Auscultation: clear to auscultation bilaterally Cardio Palpation: no palpable S3 Heart sounds: no rubs GI Palpation (GI): Soft to palpation Auscultation: normal bowel sounds Neuro Motor exam (neuro): no asterixis Results Lab Results 09/05/25 04:45 09/05/25 04:45 Lab results: Chemistry 09/04/25 09/04/25 09/05/25 08:13 08:17 04:45 Sodium 134 L 136 Potassium 5.1 D 4.2 Carbon Dioxide 23 22 BUN 46 H 56 H Creatinine 6.17 H* 7.19 H* Calcium 8.8 D 9.1 7.9 L D Phosphorus 6.6 H Hematology 09/04/25 09/05/25 08:13 04:45 WBC 11.2 H 7.7 Hgb 11.1 L 9.7 L Plt Count 242 D 228 Urinalysis 09/04/25 10:13 Urine Color Yellow Urine Appearance Clear Urine pH >= 9.0 Ur Specific [place] 1.010 Urine Protein 300 (3+) H Urine Glucose (UA) 250 H Urine Ketones Negative Urine Blood Small (1+) H Urine Nitrite Negative Ur Leukocyte Esterase Negative Urine RBC 3-5 H Urine WBC 0-5 Ur Squamous Epith Cells 0-2 Hyaline Casts 0-2 Assessment and Plan (1) ESRD (end stage renal disease): Status: Acute Plan Admitted with resp failure Due for HD today Remove fluid as tolerated Watch K Concur with other medical management Shall follow with team Procedures Date of Service Date of Service: 09/05/25
[2025-09-05] MEDS: Chlorhexidine Gluc Oral Rinse 15 ML MOUTHWASH BUCCAL ×2 (13:38→19:53)
--- NOTE | 2025-09-05 14:18 | MHC.CM.PN ---
Pt intubated and unable to participate in CM assessment: Per EMR, pt resides w/parent, attends HD on MWF at [facility] in [place]. He has a cane and w/c - other DME or services are unknown at this time. Message left w/[facility] contact number: awaiting call back. No HCP found in EMR. CM to follow for finalization of d/c planning needs.
--- NOTE | 2025-09-05 15:07 | HO.WOUND ---
Wound Consult: Initial 45 yr old male admitted to [facility] on -09/04/25 See progress notes and H&P for detailed history. Wound consult placed for Coccyx, BKA. Patient intubated and sedated in the ICU. Patient with history of extensive wounds. Largely healed at this time. 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 scar tissue Corazon wound: ? No Induration, Fluctuance or Warmth noted Pain: none Goals of Treatment: ? offloading prevention of re-injury Right BKA Etiology: diabetic wound Measurements: 4cm x 2cm x 0.4cm Wound Bed: moist pale pink Drainage / Odor: mild odor, small/moderate serosang Edges: ? callus Corazon wound: ? No Induration, Fluctuance or Warmth noted Pain: none Goals of Treatment: ? drainage absorption and antimicrobial effects with durafiber ag Left plantar Etiology: diabetic foot wound Measurements: 0.5cm x 0.5cm x cm Wound Bed: dry black eschar Drainage / Odor: none Edges: ? intact Corazon wound: ? No Induration, Fluctuance or Warmth noted Pain: none Goals of Treatment: ? maintain clean dry bed with betadine Left heel - healed pressure injury- intact dry callus Back healed pressure injury- intact scar tissue - preventative foams in place Right chest- raised firm brown lesion no surrounding redness or warmth - no fluctuance- leave open to air - recommend dermatology follow up outpatient Right thigh- healed skin injury Right side/back- healed skin injuries - scar tissue present Recommendations: 1. Turn and Reposition every 2 hours and as needed for patient comfort. Use pillows or wedges to support off loading positions. 2. Off Load all bony prominences with use of pillows and heel boots if needed. Apply Preventative foams where needed. 3. Monitor for incontinence and moisture control, use barrier creams when needed for prevention and treatment. 4. Provide adequate and supplemental nutrition. 5. Order or Continue low air loss mattress. 6. When applicable maintain blood glucose levels per Providers order. Right BKA: cleanse with saline, apply durafiber ag, cover with foam, change daily and PRN Left plantar: paint with betadine daily and PRN. Left heel: healed- offloading with pillows or boots Coccyx and back: Off Load Pressure with Q2 hr turns and use of pillows - Routine cleansing. Apply skin prep allow to dry. Cover with foam dressing to aid in off loading and protection from friction. Change every 3 days and PRN. Re-consult wound care Nurse for wound deterioration or wound changes.
--- NOTE | 2025-09-05 17:32 | HE.PHANOTE ---
RE [facility] Patients level came back this morning 15.3. Will withhold any more dosing until next dialysis. Put in level for 09/07 for post dialysis
[2025-09-05 17:52] LABS: Glucose, Whole Blood 75 mg/dL (60-115)
--- NOTE | 2025-09-05 18:34 | PC.NURSE ---
Assumed care at 0700- pt. remains intubated/sedated per MAR. +cough/gag,pain response, opens eyes to verbal stimuli, does not track. ALEXANDRE. SR on tele, HR 70s-80s. tolerating ACVC vent settings- see vent assessment. At approx 1100 POC 56- MD notified, 1 amp D50 given per MAR with good effect. TF started via OGT- see TF assessment. Cid remains in place draining cyu. Dialysis complete at approx 1700- 3.4L off. Q2 oral care and repositioning performed. Family updated via telephone. Plan of care ongoing.
[2025-09-06] VITALS (33 sets, daily range): BP systolic 108–134; BP diastolic 54–74; PULSE 67–81; RESP 16–17; TEMP 34.9–37.4; O2SAT 93–96; BMI 25.1
[2025-09-06 00:07] LABS: Glucose, Whole Blood 73 mg/dL (60-115)
[2025-09-06] MEDS: fentaNYL citrate/NS 1,000 MCG/100 ML PLAST..BAG 20 MCG IVCONT ×5 (02:11→22:25)
[2025-09-06 05:27] LABS: Glucose, Whole Blood 73 mg/dL (60-115)
[2025-09-06 05:34] LABS: VBG HCO3 30 mmol/L (22-26); VBG O2 % Saturation 91.0 %
[2025-09-06 05:35] LABS: MANUAL DIFF FLAG NO
[2025-09-06 05:38] LABS: Hematocrit 35.2 % (42.0-52.0); Hemoglobin 10.9 g/dl (14.0-18.0); Imm Gran Abs Auto 0.01 X10*3/uL (0.00-0.03); Imm Gran Pct Auto 0.2 % (0.0-0.4); Lymphocytes Absolute Auto 1.2 X10*3/uL (1.2-4.9); Mean Corpuscular HGB Conc 31.0 g/dl (31.0-36.0); Mean Corpuscular Hemoglobin 28.6 pg (27.0-33.0); Mean Corpuscular Volume 92.4 fL (80.0-98.0); NRBC Abs Auto 0.000 X10*3/uL (0.0-0.012); NRBC Pct Auto 0.0 /100WBC (0.0-0.2); Platelet Count 218 X10*3/uL (160-400); Red Blood Count 3.81 X10*6/uL (4.60-5.80); White Blood Count 6.3 X10*3/uL (4.8-10.8)
[2025-09-06 05:45] LABS: Venous Blood Gas Refer to POC result
[2025-09-06 05:59] LABS: Albumin Level 3.1 g/dL (3.5-5.0); Anion Gap 17 (12-20); Blood Urea Nitrogen 26 mg/dL (9-16); Calcium 8.1 mg/dL (8.4-10.2); Carbon Dioxide 26 mmol/L (22-29); Chloride 99 mmol/L (96-108); Creatinine Clr Calc Pharmacy 19.6; Estimated Glomerular Filt Rate 13; Magnesium 2.7 mg/dL (1.6-2.6); Potassium 4.0 mmol/L (3.3-5.1); Sodium 138 mmol/L (135-145)
[2025-09-06] MEDS: 0.9 % Sodium Chloride Flush 3 ML SYRINGE IVFLUSH ×2 (07:30→15:26)
[2025-09-06] MEDS: Erythromycin Base 0.5% Oph Oin 1 GM TUBE 1 CM EYE-BOTH ×3 (07:30→21:28)
[2025-09-06] MEDS: Chlorhexidine Gluc Oral Rinse 15 ML MOUTHWASH BUCCAL ×3 (07:30→21:27)
--- NOTE | 2025-09-06 10:16 | P.PNCC_ITS ---
Subjective Subjective Date of Service: 09/06/25 Interval History: 45-year-old gentleman with underlying diabetes mellitus with end-stage renal disease on hemodialysis, COPD, opioid dependence, seizures, paroxysmal a flutter, cardiomyopathy admitted on 12/2024 with cocaine/opioids overdose further complicated by aspiration requiring intubation and ventilatory support. ER workup was significant for suspicion of cervical osteomyelitis. No events overnight. Critical Care Time (minutes): 60 Physical Exam 2 Vital Signs: Vital Signs: Last Vital Signs Temp 98.6 F 09/06/25 09:00 Pulse 78 09/06/25 09:00 Resp 16 09/06/25 09:00 BP 113/62 09/06/25 09:00 Pulse Ox 93 09/06/25 09:00 O2 Del Method Mechanical Ventil ation 09/06/25 09:00 O2 Flow Rate 21 09/06/25 09:00 FiO2 21 09/06/25 08:03 BMI result Body Mass Index 25.1 Const: General: no acute distress and other (Sedated on ventilatory support) Eyes: Sclerae: sclerae normal EOM: EOMs intact bilaterally Neck: Neck: Yes no lymphadenopathy, Yes trachea midline and Yes supple Resp: Auscultation: clear to auscultation bilaterally Cardio: Rate: regular rate Rhythm: regular rhythm Heart sounds: no gallops, no murmurs and no rubs GI: Palpation (GI): Soft to palpation and Other GI palpation findings present ( Nontender) Auscultation: normal bowel sounds Extrem: General: No clubbing, No cyanosis and Yes other (Right BKA, left TMA) Objective Data Labs 09/06/25 05:23 09/06/25 05:23 Labs: Laboratory Results - last 24 hr 09/05/25 09/05/25 09/05/25 11:15 11:32 16:48 WBC RBC Hgb Hct MCV MCH MCHC RDW Plt Count MPV Immature Gran % (Auto) Neut % (Auto) Lymph % (Auto) [place] % (Auto) Eos % (Auto) Baso % (Auto) Lymph # (Auto) [place] # (Auto) Eos # (Auto) Baso # (Auto) Abs Immat Gran (auto) Absolute Neuts (auto) Absolute Nucleated RBC Nucleated RBC % (auto) VBG pH VBG pCO2 VBG pO2 VBG HCO3 VBG O2 Saturation VBG Base Excess Sodium Potassium Chloride Carbon Dioxide Anion Gap BUN Creatinine Estim Creat Clear Calc Estimated GFR POC Glucose 56 L* 153 H Random Glucose Calcium Phosphorus Magnesium Albumin Vancomycin Trough 15.3 09/05/25 09/06/25 09/06/25 17:45 00:04 05:23 WBC 6.3 RBC 3.81 L Hgb 10.9 L Hct 35.2 L MCV 92.4 MCH 28.6 MCHC 31.0 RDW 15.2 Plt Count 218 MPV 10.5 Immature Gran % (Auto) 0.2 Neut % (Auto) 69.8 Lymph % (Auto) 19.4 L [place] % (Auto) 7.6 Eos % (Auto) 2.5 Baso % (Auto) 0.5 Lymph # (Auto) 1.2 [place] # (Auto) 0.5 Eos # (Auto) 0.2 Baso # (Auto) 0.0 Abs Immat Gran (auto) 0.01 Absolute Neuts (auto) 4.4 Absolute Nucleated RBC 0.000 Nucleated RBC % (auto) 0.0 VBG pH VBG pCO2 VBG pO2 VBG HCO3 VBG O2 Saturation VBG Base Excess Sodium 138 Potassium 4.0 Chloride 99 Carbon Dioxide 26 Anion Gap 17 BUN 26 H Creatinine 4.81 H* Estim Creat Clear Calc 19.6 Estimated GFR 13 POC Glucose 75 73 Random Glucose 73 Calcium 8.1 L Phosphorus 5.8 H Magnesium 2.7 H Albumin 3.1 L Vancomycin Trough 09/06/25 09/06/25 05:24 05:30 WBC RBC Hgb Hct MCV MCH MCHC RDW Plt Count MPV Immature Gran % (Auto) Neut % (Auto) Lymph % (Auto) [place] % (Auto) Eos % (Auto) Baso % (Auto) Lymph # (Auto) [place] # (Auto) Eos # (Auto) Baso # (Auto) Abs Immat Gran (auto) Absolute Neuts (auto) Absolute Nucleated RBC Nucleated RBC % (auto) VBG pH 7.40 VBG pCO2 49 VBG pO2 68 VBG HCO3 30 H VBG O2 Saturation 91.0 VBG Base Excess 4.8 Sodium Potassium Chloride Carbon Dioxide Anion Gap BUN Creatinine Estim Creat Clear Calc Estimated GFR POC Glucose 73 Random Glucose Calcium Phosphorus Magnesium Albumin Vancomycin Trough Microbiology Microbiology Results: Microbiology 09/04/25 08:13 Blood - Venous Blood Culture - Final Coag negative Staphylococcus Corynebacterium species 09/04/25 08:17 Blood - Venous Blood Culture - Preliminary No growth after 24 hours. Progress Note: A&P Assessment and plan (1) Diabetes: Status: Acute (2) ESRD (end stage renal disease): Status: Acute (3) Pulmonary aspiration: Status: Acute (4) Polysubstance abuse: Status: Acute Plan Assessment: 42-year-old gentleman with underlying diabetes mellitus, ESRD on hemodialysis, PVD, polysubstance abuse admitted with polysubstance abuse further complicated by pulmonary aspiration requiring intubation and ventilatory support Plan: Neuro: Toxic encephalopathy secondary to polysubstance abuse: Continue to titrate off sedative drips as tolerated. Cardiac: No acute issues. Pulmonary: Acute hypoxic respiratory failure on the background of pulmonary aspiration requiring ventilatory support, continue to titrate off as tolerated. Renal: ESRD on hemodialysis, nephrology service care appreciated. Endo: No acute issues. GI: No acute issues. ID: Suspicion for cervical osteomyelitis, tagged cells/SPECT CT scan is pending. Pulmonary aspiration. Continue empiric antibiotics. Heme/Onc: No acute issues. Psych: No acute issues. Miscellaneous: No acute issues. Prophylaxis: Heparin, ppi Diet: Tube feeds Critical care time spent: 60 minutes Quality Stroke Does the patient have a stroke diagnosis?: No VTE Prior VTE?: No VTE Risk Level:: Medical - moderate - high VTE Device Contraindication: N/A - Device Ordered VTE Drug Contraindication: N/A - Med Ordered
[2025-09-06 11:35] LABS: Glucose, Whole Blood 74 mg/dL (60-115)
--- NOTE | 2025-09-06 16:28 | PM.PNNEP ---
Subjective Subjective Date of Service: 09/06/25 Interval history: 45-year-old gentleman with underlying diabetes mellitus with end-stage renal disease on hemodialysis, COPD, opioid dependence, seizures, paroxysmal a flutter, cardiomyopathy admitted on 12/2024 with cocaine/opioids overdose further complicated by aspiration requiring intubation and ventilatory support. ER workup was significant for suspicion of cervical osteomyelitis. No events overnight. Physical Exam Vital Signs: Vital Signs: Last Vital Signs Temp 97.9 F 09/06/25 15:00 Pulse 73 09/06/25 15:00 Resp 16 09/06/25 15:00 BP 110/54 L 09/06/25 15:00 Pulse Ox 95 09/06/25 15:00 O2 Del Method Mechanical Ventil ation 09/06/25 15:00 O2 Flow Rate 21 09/06/25 11:00 FiO2 21 09/06/25 15:12 BMI result Body Mass Index 25.1 Objective Data Labs 09/07/25 05:22 09/07/25 05:22 Labs: Laboratory Results - last 24 hr 09/05/25 09/05/25 09/06/25 16:48 17:45 00:04 WBC RBC Hgb Hct MCV MCH MCHC RDW Plt Count MPV Immature Gran % (Auto) Neut % (Auto) Lymph % (Auto) [place] % (Auto) Eos % (Auto) Baso % (Auto) Lymph # (Auto) [place] # (Auto) Eos # (Auto) Baso # (Auto) Abs Immat Gran (auto) Absolute Neuts (auto) Absolute Nucleated RBC Nucleated RBC % (auto) VBG pH VBG pCO2 VBG pO2 VBG HCO3 VBG O2 Saturation VBG Base Excess Sodium Potassium Chloride Carbon Dioxide Anion Gap BUN Creatinine Estim Creat Clear Calc Estimated GFR POC Glucose 75 73 Random Glucose Calcium Phosphorus Magnesium Albumin Vancomycin Trough 15.3 09/06/25 09/06/25 09/06/25 05:23 05:24 05:30 WBC 6.3 RBC 3.81 L Hgb 10.9 L Hct 35.2 L MCV 92.4 MCH 28.6 MCHC 31.0 RDW 15.2 Plt Count 218 MPV 10.5 Immature Gran % (Auto) 0.2 Neut % (Auto) 69.8 Lymph % (Auto) 19.4 L [place] % (Auto) 7.6 Eos % (Auto) 2.5 Baso % (Auto) 0.5 Lymph # (Auto) 1.2 [place] # (Auto) 0.5 Eos # (Auto) 0.2 Baso # (Auto) 0.0 Abs Immat Gran (auto) 0.01 Absolute Neuts (auto) 4.4 Absolute Nucleated RBC 0.000 Nucleated RBC % (auto) 0.0 VBG pH 7.40 VBG pCO2 49 VBG pO2 68 VBG HCO3 30 H VBG O2 Saturation 91.0 VBG Base Excess 4.8 Sodium 138 Potassium 4.0 Chloride 99 Carbon Dioxide 26 Anion Gap 17 BUN 26 H Creatinine 4.81 H* Estim Creat Clear Calc 19.6 Estimated GFR 13 POC Glucose 73 Random Glucose 73 Calcium 8.1 L Phosphorus 5.8 H Magnesium 2.7 H Albumin 3.1 L Vancomycin Trough 09/06/25 11:26 WBC RBC Hgb Hct MCV MCH MCHC RDW Plt Count MPV Immature Gran % (Auto) Neut % (Auto) Lymph % (Auto) [place] % (Auto) Eos % (Auto) Baso % (Auto) Lymph # (Auto) [place] # (Auto) Eos # (Auto) Baso # (Auto) Abs Immat Gran (auto) Absolute Neuts (auto) Absolute Nucleated RBC Nucleated RBC % (auto) VBG pH VBG pCO2 VBG pO2 VBG HCO3 VBG O2 Saturation VBG Base Excess Sodium Potassium Chloride Carbon Dioxide Anion Gap BUN Creatinine Estim Creat Clear Calc Estimated GFR POC Glucose 74 Random Glucose Calcium Phosphorus Magnesium Albumin Vancomycin Trough Microbiology Microbiology Results: Microbiology 09/04/25 08:17 Blood - Venous Blood Culture - Preliminary No growth after 48 hours. 09/04/25 08:13 Blood - Venous Blood Culture - Final Coag negative Staphylococcus Corynebacterium species Procedures Date of Service Date of Service: 09/07/25 Assessment & Plan Time Spent With Patient Time: Total time managing care of this patient today ____ minutes. Progress Note: Quality Stroke Does the patient have a stroke diagnosis?: No
[2025-09-06 17:41] LABS: Glucose, Whole Blood 64 mg/dL (60-115)
--- NOTE | 2025-09-06 18:15 | PC.NURSE ---
Assumed care at 0700- pt. remains intubated and sedated per MAR. Nuc med scan performed- pt. initally transferred to [place] at approx 1245 for initial imaging, then back to [place] at approx. 1530 for secondary imagine. Pt. accompanied by this RN and RT through duration of scan. PRN versed given per MAR to tolerate scan. Pt. 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 SR on tele with 1st degree AVB, HR 60s-80s. Tolerating ACVC vent settings- see vent assessment. OGT in place, TF running per order, pt. tolerating. 1800 POC 64- MD aware, PRN d50 given with good effect. Cid removed at 1800, male purewick placed, pt. dtv at 0000 09/07. Q2 oral care and repositioning performed. Plan of care ongoing.
[2025-09-06 18:24] LABS: Glucose, Whole Blood 169 mg/dL (60-115)
[2025-09-06 20:01] LABS: Glucose, Whole Blood 124 mg/dL (60-115)
[2025-09-07] VITALS (29 sets, daily range): BP systolic 115–213; BP diastolic 62–99; PULSE 71–102; RESP 10–25; TEMP 34.8–37.8; O2SAT 93–100; BMI 22.7
[2025-09-07 00:20] LABS: Glucose, Whole Blood 110 mg/dL (60-115)
[2025-09-07] MEDS: 0.9 % Sodium Chloride Flush 3 ML SYRINGE IVFLUSH ×3 (00:42→16:03)
[2025-09-07] MEDS: fentaNYL citrate/NS 1,000 MCG/100 ML PLAST..BAG 20 MCG IVCONT ×2 (02:57→07:33)
[2025-09-07 05:30] LABS: MANUAL DIFF FLAG NO
[2025-09-07 05:31] LABS: Hematocrit 35.3 % (42.0-52.0); Hemoglobin 10.9 g/dl (14.0-18.0); Imm Gran Abs Auto 0.01 X10*3/uL (0.00-0.03); Imm Gran Pct Auto 0.2 % (0.0-0.4); Lymphocytes Absolute Auto 1.2 X10*3/uL (1.2-4.9); Mean Corpuscular HGB Conc 30.9 g/dl (31.0-36.0); Mean Corpuscular Hemoglobin 28.5 pg (27.0-33.0); Mean Corpuscular Volume 92.2 fL (80.0-98.0); NRBC Abs Auto 0.000 X10*3/uL (0.0-0.012); NRBC Pct Auto 0.0 /100WBC (0.0-0.2); Platelet Count 223 X10*3/uL (160-400); Red Blood Count 3.83 X10*6/uL (4.60-5.80); White Blood Count 5.8 X10*3/uL (4.8-10.8)
[2025-09-07 05:32] LABS: VBG HCO3 26 mmol/L (22-26); VBG O2 % Saturation 88.0 %
[2025-09-07 05:53] LABS: Albumin Level 2.8 g/dL (3.5-5.0); Anion Gap 19 (12-20); Blood Urea Nitrogen 37 mg/dL (9-16); Calcium 7.9 mg/dL (8.4-10.2); Carbon Dioxide 23 mmol/L (22-29); Chloride 101 mmol/L (96-108); Creatinine Clr Calc Pharmacy 15.4; Estimated Glomerular Filt Rate 10; Magnesium 3.0 mg/dL (1.6-2.6); Potassium 4.1 mmol/L (3.3-5.1); Sodium 139 mmol/L (135-145)
[2025-09-07 05:57] LABS: Venous Blood Gas Refer to POC result
[2025-09-07] MEDS: Albumin Human 25 % 100 ML IV ×3 (07:37→19:38)
[2025-09-07] MEDS: Erythromycin Base 0.5% Oph Oin 1 GM TUBE 1 CM EYE-BOTH ×3 (07:38→21:00)
--- NOTE | 2025-09-07 09:26 | MHC.CM.PN ---
EMR REVIEWED, PT W/TOXIC ENCEPHALOPATHY/ASPIRATION VENTED, PER ICU ROUNDS PLAN TO WEAN PT OFF VENT AFTER DIALYSIS TODAY, CM WILL CONT TO FOLLOW DC NEEDS.
[2025-09-07] MEDS: Chlorhexidine Gluc Oral Rinse 15 ML MOUTHWASH BUCCAL (09:33)
--- NOTE | 2025-09-07 09:52 | P.CDIM_ITS ---
PROVIDER RESPONSE TEXT: To clarify, the appropriate diagnosis supported by the clinical indicators: Aspiration Pneumonitis QUERY TEXT: PHYSICIAN'S DOCUMENTATION REQUEST Date of Query: 09/07/2025 08:02 AM EST Patient Name: SOLOMON NARANJO Admit Date: 09/04/2025 Dear Ken Melendez MD, A review of the medical record indicates additional documentation may be needed. Please review below and update the documentation accordingly. Clinical Indicators: ICU progress note 09/05/25: Admitted with polysubstance abuse further complicated by pulmonary aspiration requiring intubation. Acute hypoxic respiratory failure on the background of pulmonary aspiration requiring ventilatory support. Ed work-up suggestive of pneumonia: persistent agitation, necessitating escalating sedation. c/b respiratory depression, intubated. Based on the above, could you clarify in the Progress Notes further specificity regarding the pulmonary aspiration: Aspiration Pneumonia Aspiration Pneumonitis Aspiration due to other source Other (explain) Clinically unable to determine (explain) Thank you, Keely Jalloh, CCS, CDIS Use of terms such as suspected, likely, concern for, or probable (associated with a specific diagnosis that is being evaluated, monitored, or treated as if it exists) are acceptable and can be coded in the inpatient setting, when documented at the time of discharge. Please use your independent medical judgment in providing your response. THIS QUERY IS PART OF THE PERMANENT MEDICAL RECORD
--- NOTE | 2025-09-07 10:18 | MHC.CLN ---
F/U PT REMAINS INTUBATED AND SEDATED PT RECEIVING NEPRO TF AT MAX GOAL RATE 45ML/HR PROVIDES 1944KCALS (2553KCALS WITH SEDATION; 32KCALS/KG), 87G PROTEIN (1.10G/KG), 785ML FREE WATER CONTINUE TO MONITOR TOLERANCE AND LYTES
--- NOTE | 2025-09-07 10:55 | P.PNCC_ITS ---
Subjective Subjective Date of Service: 09/07/25 Interval History: 45-year-old gentleman with underlying diabetes mellitus with end-stage renal disease on hemodialysis, COPD, opioid dependence, seizures, paroxysmal a flutter, cardiomyopathy admitted on 12/2024 with cocaine/opioids overdose further complicated by aspiration requiring intubation and ventilatory support. ER workup was significant for suspicion of cervical osteomyelitis, but now negative on tagged white cell scan. No events overnight. Critical Care Time (minutes): 60 Physical Exam 2 Vital Signs: Vital Signs: Last Vital Signs Temp 98.5 F 09/07/25 08:00 Pulse 74 09/07/25 10:00 Resp 16 09/07/25 10:00 BP 135/79 09/07/25 10:00 Pulse Ox 100 09/07/25 10:00 O2 Del Method Mechanical Ventil ation 09/07/25 10:00 O2 Flow Rate 21 09/06/25 11:00 FiO2 21 09/07/25 10:00 BMI result Body Mass Index 22.7 Const: General: no acute distress and other (Sedated on ventilatory support) Eyes: Sclerae: sclerae normal EOM: EOMs intact bilaterally Neck: Neck: Yes no lymphadenopathy, Yes trachea midline and Yes supple Resp: Auscultation: clear to auscultation bilaterally Cardio: Rate: regular rate Rhythm: regular rhythm Heart sounds: no gallops, no murmurs and no rubs GI: Palpation (GI): Soft to palpation and Other GI palpation findings present ( Nontender) Auscultation: normal bowel sounds Extrem: General: No clubbing, No cyanosis and Yes other (Right BKA, left TMA) Objective Data Labs 09/07/25 05:22 09/07/25 05:22 Labs: Laboratory Results - last 24 hr 09/06/25 09/06/25 09/06/25 11:26 17:38 18:21 WBC RBC Hgb Hct MCV MCH MCHC RDW Plt Count MPV Immature Gran % (Auto) Neut % (Auto) Lymph % (Auto) [place] % (Auto) Eos % (Auto) Baso % (Auto) Lymph # (Auto) [place] # (Auto) Eos # (Auto) Baso # (Auto) Abs Immat Gran (auto) Absolute Neuts (auto) Absolute Nucleated RBC Nucleated RBC % (auto) VBG pH VBG pCO2 VBG pO2 VBG HCO3 VBG O2 Saturation VBG Base Excess Sodium Potassium Chloride Carbon Dioxide Anion Gap BUN Creatinine Estim Creat Clear Calc Estimated GFR POC Glucose 74 64 169 H Random Glucose Calcium Phosphorus Magnesium Albumin 09/06/25 09/07/25 09/07/25 19:58 00:09 05:22 WBC 5.8 RBC 3.83 L Hgb 10.9 L Hct 35.3 L MCV 92.2 MCH 28.5 MCHC 30.9 L RDW 15.1 Plt Count 223 MPV 10.7 Immature Gran % (Auto) 0.2 Neut % (Auto) 66.2 Lymph % (Auto) 21.4 [place] % (Auto) 7.9 Eos % (Auto) 4.0 Baso % (Auto) 0.3 Lymph # (Auto) 1.2 [place] # (Auto) 0.5 Eos # (Auto) 0.2 Baso # (Auto) 0.0 Abs Immat Gran (auto) 0.01 Absolute Neuts (auto) 3.8 Absolute Nucleated RBC 0.000 Nucleated RBC % (auto) 0.0 VBG pH VBG pCO2 VBG pO2 VBG HCO3 VBG O2 Saturation VBG Base Excess Sodium 139 Potassium 4.1 Chloride 101 Carbon Dioxide 23 Anion Gap 19 BUN 37 H Creatinine 6.10 H* Estim Creat Clear Calc 15.4 Estimated GFR 10 POC Glucose 124 H 110 Random Glucose 105 Calcium 7.9 L Phosphorus 7.7 H Magnesium 3.0 H Albumin 2.8 L 09/07/25 05:28 WBC RBC Hgb Hct MCV MCH MCHC RDW Plt Count MPV Immature Gran % (Auto) Neut % (Auto) Lymph % (Auto) [place] % (Auto) Eos % (Auto) Baso % (Auto) Lymph # (Auto) [place] # (Auto) Eos # (Auto) Baso # (Auto) Abs Immat Gran (auto) Absolute Neuts (auto) Absolute Nucleated RBC Nucleated RBC % (auto) VBG pH 7.39 VBG pCO2 43 VBG pO2 64 VBG HCO3 26 VBG O2 Saturation 88.0 VBG Base Excess 1.4 Sodium Potassium Chloride Carbon Dioxide Anion Gap BUN Creatinine Estim Creat Clear Calc Estimated GFR POC Glucose Random Glucose Calcium Phosphorus Magnesium Albumin Microbiology Microbiology Results: Microbiology 09/04/25 08:17 Blood - Venous Blood Culture - Preliminary No growth after 48 hours. 09/04/25 08:13 Blood - Venous Blood Culture - Final Coag negative Staphylococcus Corynebacterium species Progress Note: A&P Assessment and plan (1) Polysubstance abuse: Status: Acute (2) PVD (peripheral vascular disease): Status: Acute (3) Diabetic skin ulcer: Status: Acute (4) Pulmonary aspiration: Status: Acute Plan Assessment: 42-year-old gentleman with underlying diabetes mellitus, ESRD on hemodialysis, PVD, polysubstance abuse admitted with polysubstance abuse further complicated by pulmonary aspiration requiring intubation and ventilatory support Plan: Neuro: Toxic encephalopathy secondary to polysubstance abuse, resolved. Cardiac: No acute issues. Pulmonary: Acute hypoxic respiratory failure on the background of pulmonary aspiration requiring ventilatory support, continue to titrate off as tolerated. Renal: ESRD on hemodialysis, nephrology service care appreciated. Endo: No acute issues. GI: No acute issues. ID: Negative tagged cells/SPECT CT scan for cervical osteomyelitis. Pulmonary aspiration. Continue empiric antibiotics. Heme/Onc: No acute issues. Psych: No acute issues. Miscellaneous: No acute issues. Prophylaxis: Heparin, ppi Diet: Tube feeds Critical care time spent: 60 minutes Quality Stroke Does the patient have a stroke diagnosis?: No VTE Prior VTE?: No VTE Risk Level:: Medical - moderate - high VTE Device Contraindication: N/A - Device Ordered VTE Drug Contraindication: N/A - Med Ordered
[2025-09-07 11:30] LABS: Glucose, Whole Blood 119 mg/dL (60-115)
[2025-09-07] MEDS: Buprenorphine/Naloxone 8/2 mg TAB.SUBL 1 TAB SUBLINGUAL ×2 (13:50→21:00)
--- NOTE | 2025-09-07 16:03 | W.PM.DNNEP ---
Subjective Subjective Date of Service: 09/07/25 This patient was seen during dialysis. Interval history: Events noted HD today Extubated Physical Exam Vital Signs: Vital Signs: Last Vital Signs Temp 97.5 F 09/07/25 12:00 Pulse 102 H 09/07/25 15:15 Resp 18 09/07/25 15:00 BP 213/99 H 09/07/25 15:15 Pulse Ox 96 09/07/25 15:00 O2 Del Method Room Air 09/07/25 15:00 O2 Flow Rate 21 09/06/25 11:00 FiO2 21 09/07/25 11:29 BMI result Body Mass Index 22.7 Const: General: ill appearing Neck: Neck: Yes supple Resp: Auscultation: clear to auscultation bilaterally Cardio: Palpation: no palpable S3 Heart sounds: no rubs GI: Palpation (GI): Soft to palpation Auscultation: normal bowel sounds Neuro: Motor exam (neuro): no asterixis Assessment & Plan Assessment and plan (1) ESRD (end stage renal disease): Status: Acute Plan Admitted with resp failure HD today Remove fluid as tolerated Watch K Concur with other medical management Shall follow with team Time Spent With Patient Time: Total time managing care of this patient today ____ minutes. Procedures Date of Service Date of Service: 09/07/25
--- NOTE | 2025-09-07 17:16 | PC.NURSE ---
assumed care of patient at 0700. patient weaned off of sedation at 1100 and PSV trial started with PSV 8 PEEP 5 and fio2 21%. Pt extubated per MD order at 1110. pt placed on end tidal monitoring via nasal cannula. 20 mg of IV labetalol administered per provider order at 1515 for BP of 213/99, with good effect. Pt's BPs continue to remain below 160s systolic. Pt also given 10 mg amlodipine PO. Nursing swallow screen preformed at bedside. pt able to safely swallow water and pureed food. 1:[address] for restlessness and high fall precautions. patient's mother visited at bedside and updated by RN
[2025-09-07 18:31] LABS: Glucose, Whole Blood 266 mg/dL (60-115)
[2025-09-08] VITALS (15 sets, daily range): BP systolic 103–188; BP diastolic 74–93; PULSE 72–85; RESP 13–22; TEMP 36.3–36.9; O2SAT 96–100; BMI 22.7
[2025-09-08 00:31] LABS: Glucose, Whole Blood 96 mg/dL (60-115)
[2025-09-08] MEDS: 0.9 % Sodium Chloride Flush 3 ML SYRINGE IVFLUSH ×3 (00:38→20:41)
[2025-09-08] MEDS: Albumin Human 25 % 100 ML IV (01:53)
[2025-09-08 04:57] LABS: VBG HCO3 27 mmol/L (22-26); VBG O2 % Saturation 93.0 %
[2025-09-08 05:01] LABS: Venous Blood Gas Refer to POC result
[2025-09-08 05:08] LABS: MANUAL DIFF FLAG NO
[2025-09-08 05:09] LABS: Hematocrit 38.9 % (42.0-52.0); Hemoglobin 12.3 g/dl (14.0-18.0); Imm Gran Abs Auto 0.01 X10*3/uL (0.00-0.03); Imm Gran Pct Auto 0.1 % (0.0-0.4); Lymphocytes Absolute Auto 1.4 X10*3/uL (1.2-4.9); Mean Corpuscular HGB Conc 31.6 g/dl (31.0-36.0); Mean Corpuscular Hemoglobin 28.3 pg (27.0-33.0); Mean Corpuscular Volume 89.6 fL (80.0-98.0); NRBC Abs Auto 0.000 X10*3/uL (0.0-0.012); NRBC Pct Auto 0.0 /100WBC (0.0-0.2); Platelet Count 208 X10*3/uL (160-400); Red Blood Count 4.34 X10*6/uL (4.60-5.80); White Blood Count 7.5 X10*3/uL (4.8-10.8)
[2025-09-08 05:32] LABS: Albumin Level 4.1 g/dL (3.5-5.0); Anion Gap 20 (12-20); Blood Urea Nitrogen 21 mg/dL (9-16); Calcium 8.9 mg/dL (8.4-10.2); Carbon Dioxide 24 mmol/L (22-29); Chloride 97 mmol/L (96-108); Creatinine Clr Calc Pharmacy 20.7; Estimated Glomerular Filt Rate 14; Magnesium 2.7 mg/dL (1.6-2.6); Potassium 3.3 mmol/L (3.3-5.1); Sodium 138 mmol/L (135-145)
--- NOTE | 2025-09-08 07:28 | PC.NURSE ---
Assumed care of the patient at 1900. Patient awake and oriented to self, place and year. Sinus rhythm with 1st deg AVB on telemetry. Patient remains on room air with oxygen saturations in the mid to high 90?s.
[2025-09-08] MEDS: Buprenorphine/Naloxone 8/2 mg TAB.SUBL 1 TAB SUBLINGUAL ×3 (08:57→20:38)
[2025-09-08] MEDS: Erythromycin Base 0.5% Oph Oin 1 GM TUBE 1 CM EYE-BOTH ×3 (08:57→20:38)
[2025-09-08] MEDS: Potassium Chloride Packet 20 MEQ PACKET PO (08:57)
--- NOTE | 2025-09-08 09:17 | P.PNCC_ITS ---
Subjective Subjective Date of Service: 09/08/25 Interval History: 45-year-old gentleman with underlying diabetes mellitus with end-stage renal disease on hemodialysis, COPD, opioid dependence, seizures, paroxysmal a flutter, cardiomyopathy admitted on 12/2024 with cocaine/opioids overdose further complicated by aspiration requiring intubation and ventilatory support. ER workup was significant for suspicion of cervical osteomyelitis, but now negative on tagged white cell scan. No events overnight. Critical Care Time (minutes): 0 Physical Exam 2 Vital Signs: Vital Signs: Last Vital Signs Temp 97.8 F 09/08/25 07:00 Pulse 79 09/08/25 09:00 Resp 15 09/08/25 09:00 BP 103/78 09/08/25 09:00 Pulse Ox 100 09/08/25 09:00 O2 Del Method Room Air 09/08/25 09:00 O2 Flow Rate 21 09/06/25 11:00 FiO2 60 09/07/25 19:00 BMI result Body Mass Index 22.7 Const: General: no acute distress, alert and awake Eyes: Sclerae: sclerae normal EOM: EOMs intact bilaterally Neck: Neck: Yes no lymphadenopathy, Yes trachea midline and Yes supple Resp: Effort & Inspection: normal respiratory effort and no respiratory distress Auscultation: clear to auscultation bilaterally Cardio: Rate: regular rate Rhythm: regular rhythm Heart sounds: no gallops, no murmurs and no rubs GI: Palpation (GI): Soft to palpation and Other GI palpation findings present ( Nontender) Auscultation: normal bowel sounds Extrem: General: No clubbing, No cyanosis and Yes other (Right BKA, left TMA) Objective Data Labs 09/08/25 04:51 09/08/25 04:51 Labs: Laboratory Results - last 24 hr 09/07/25 09/07/25 09/08/25 11:27 18:27 00:21 WBC RBC Hgb Hct MCV MCH MCHC RDW Plt Count MPV Immature Gran % (Auto) Neut % (Auto) Lymph % (Auto) [place] % (Auto) Eos % (Auto) Baso % (Auto) Lymph # (Auto) [place] # (Auto) Eos # (Auto) Baso # (Auto) Abs Immat Gran (auto) Absolute Neuts (auto) Absolute Nucleated RBC Nucleated RBC % (auto) VBG pH VBG pCO2 VBG pO2 VBG HCO3 VBG O2 Saturation VBG Base Excess Sodium Potassium Chloride Carbon Dioxide Anion Gap BUN Creatinine Estim Creat Clear Calc Estimated GFR POC Glucose 119 H 266 H 96 Random Glucose Calcium Phosphorus Magnesium Albumin 09/08/25 09/08/25 04:51 04:53 WBC 7.5 RBC 4.34 L Hgb 12.3 L Hct 38.9 L MCV 89.6 MCH 28.3 MCHC 31.6 RDW 14.8 Plt Count 208 MPV 10.8 Immature Gran % (Auto) 0.1 Neut % (Auto) 72.4 Lymph % (Auto) 18.6 L [place] % (Auto) 6.8 Eos % (Auto) 1.7 Baso % (Auto) 0.4 Lymph # (Auto) 1.4 [place] # (Auto) 0.5 Eos # (Auto) 0.1 Baso # (Auto) 0.0 Abs Immat Gran (auto) 0.01 Absolute Neuts (auto) 5.4 Absolute Nucleated RBC 0.000 Nucleated RBC % (auto) 0.0 VBG pH 7.47 H VBG pCO2 37 VBG pO2 72 VBG HCO3 27 H VBG O2 Saturation 93.0 VBG Base Excess 4.0 Sodium 138 Potassium 3.3 Chloride 97 Carbon Dioxide 24 Anion Gap 20 BUN 21 H Creatinine 4.47 H* Estim Creat Clear Calc 20.7 Estimated GFR 14 POC Glucose Random Glucose 97 Calcium 8.9 D Phosphorus 6.3 H Magnesium 2.7 H Albumin 4.1 Microbiology Microbiology Results: Microbiology 09/04/25 08:17 Blood - Venous Blood Culture - Preliminary No growth after 48 hours. 09/04/25 08:13 Blood - Venous Blood Culture - Final Coag negative Staphylococcus Corynebacterium species Progress Note: A&P Assessment and plan (1) Polysubstance abuse: Status: Acute (2) PVD (peripheral vascular disease): Status: Acute (3) Diabetic skin ulcer: Status: Acute (4) ESRD (end stage renal disease): Status: Acute (5) Pulmonary aspiration: Status: Acute Plan Assessment: 42-year-old gentleman with underlying diabetes mellitus, ESRD on hemodialysis, PVD, polysubstance abuse admitted with polysubstance abuse further complicated by pulmonary aspiration requiring intubation and ventilatory support Plan: Neuro: Toxic encephalopathy secondary to polysubstance abuse, resolved. Cardiac: No acute issues. Pulmonary: Acute hypoxic respiratory failure on the background of pulmonary aspiration requiring ventilatory support, extubated uneventfully on 09/07/2025. Renal: ESRD on hemodialysis, nephrology service care appreciated. Endo: No acute issues. GI: No acute issues. ID: Negative tagged cells/SPECT CT scan for cervical osteomyelitis. Completed antibiotic course for pulmonary aspiration related pneumonitis. Heme/Onc: No acute issues. Psych: No acute issues. Miscellaneous: No acute issues. Prophylaxis: Heparin Diet: Diabetic Quality Stroke Does the patient have a stroke diagnosis?: No VTE Prior VTE?: No VTE Risk Level:: Medical - moderate - high VTE Device Contraindication: N/A - Device Ordered VTE Drug Contraindication: N/A - Med Ordered
--- NOTE | 2025-09-08 09:27 | MHC.CM.PN ---
Pt extubated - no evidence of cervical osteo - had WBC scan. Will transfer to [facility] [place] for continued care. Pt from home w/parent: attends [facility] on MWF. Pt should be seen by CARE team for [facility] prior to d/c. BLS transport. CM to follow
[2025-09-08 11:46] LABS: Glucose, Whole Blood 195 mg/dL (60-115)
--- NOTE | 2025-09-08 12:42 | P.PNNP_ITS ---
Subjective Subjective Date of Service: 09/08/25 Interval history: 45-year-old gentleman with underlying diabetes mellitus with end-stage renal disease on hemodialysis, COPD, opioid dependence, seizures, paroxysmal a flutter, cardiomyopathy admitted on 12/2024 with cocaine/opioids overdose further complicated by aspiration requiring intubation and ventilatory support. ER workup was significant for suspicion of cervical osteomyelitis, but now negative on tagged white cell scan. No events overnight. Physical Exam 2 Vital Signs: Vital Signs: Last Vital Signs Temp 97.6 F 09/08/25 12:37 Pulse 82 09/08/25 12:37 Resp 18 09/08/25 12:37 BP 188/92 H 09/08/25 12:37 Pulse Ox 100 09/08/25 12:37 O2 Del Method Room Air 09/08/25 12:37 O2 Flow Rate 21 09/06/25 11:00 FiO2 60 09/07/25 19:00 BMI result Body Mass Index 22.7 Const: General: ill appearing Neck: Neck: Yes supple Resp: Auscultation: clear to auscultation bilaterally Cardio: Palpation: no palpable S3 Heart sounds: no rubs GI: Palpation (GI): Soft to palpation Auscultation: normal bowel sounds Neuro: Motor exam (neuro): no asterixis Objective Data Labs 09/08/25 04:51 09/08/25 04:51 Labs: Laboratory Results - last 24 hr 09/07/25 09/08/25 09/08/25 18:27 00:21 04:51 WBC 7.5 RBC 4.34 L Hgb 12.3 L Hct 38.9 L MCV 89.6 MCH 28.3 MCHC 31.6 RDW 14.8 Plt Count 208 MPV 10.8 Immature Gran % (Auto) 0.1 Neut % (Auto) 72.4 Lymph % (Auto) 18.6 L [place] % (Auto) 6.8 Eos % (Auto) 1.7 Baso % (Auto) 0.4 Lymph # (Auto) 1.4 [place] # (Auto) 0.5 Eos # (Auto) 0.1 Baso # (Auto) 0.0 Abs Immat Gran (auto) 0.01 Absolute Neuts (auto) 5.4 Absolute Nucleated RBC 0.000 Nucleated RBC % (auto) 0.0 VBG pH VBG pCO2 VBG pO2 VBG HCO3 VBG O2 Saturation VBG Base Excess Sodium 138 Potassium 3.3 Chloride 97 Carbon Dioxide 24 Anion Gap 20 BUN 21 H Creatinine 4.47 H* Estim Creat Clear Calc 20.7 Estimated GFR 14 POC Glucose 266 H 96 Random Glucose 97 Calcium 8.9 D Phosphorus 6.3 H Magnesium 2.7 H Albumin 4.1 09/08/25 09/08/25 04:53 11:42 WBC RBC Hgb Hct MCV MCH MCHC RDW Plt Count MPV Immature Gran % (Auto) Neut % (Auto) Lymph % (Auto) [place] % (Auto) Eos % (Auto) Baso % (Auto) Lymph # (Auto) [place] # (Auto) Eos # (Auto) Baso # (Auto) Abs Immat Gran (auto) Absolute Neuts (auto) Absolute Nucleated RBC Nucleated RBC % (auto) VBG pH 7.47 H VBG pCO2 37 VBG pO2 72 VBG HCO3 27 H VBG O2 Saturation 93.0 VBG Base Excess 4.0 Sodium Potassium Chloride Carbon Dioxide Anion Gap BUN Creatinine Estim Creat Clear Calc Estimated GFR POC Glucose 195 H Random Glucose Calcium Phosphorus Magnesium Albumin Microbiology Microbiology Results: Microbiology 09/04/25 08:17 Blood - Venous Blood Culture - Preliminary No growth after 48 hours. 09/04/25 08:13 Blood - Venous Blood Culture - Final Coag negative Staphylococcus Corynebacterium species Procedures Date of Service Date of Service: 09/08/25 Assessment & Plan Assessment and plan (1) ESRD (end stage renal disease): Status: Acute Plan Admitted with resp failure HD on Friday schedule Remove fluid as tolerated Watch K Concur with other medical management Shall follow with team Time Spent With Patient Time: Total time managing care of this patient today ____ minutes. Progress Note: Quality Stroke Does the patient have a stroke diagnosis?: No
[2025-09-08 16:19] LABS: Glucose, Whole Blood 167 mg/dL (60-115)
[2025-09-09] VITALS: BP 168/80; PULSE 79; RESP 18; TEMP 36.2; O2SAT 99
[2025-09-09 01:06] LABS: Glucose, Whole Blood 206 mg/dL (60-115)
[2025-09-09 04:00] VITALS: BP 166/96; PULSE 82; RESP 17; TEMP 36.3; O2SAT 100
[2025-09-09 05:02] LABS: Glucose, Whole Blood 88 mg/dL (60-115)
[2025-09-09 06:00] VITALS: BMI 23.4
[2025-09-09 07:23] LABS: MANUAL DIFF FLAG NO
[2025-09-09 07:27] LABS: Hematocrit 40.0 % (42.0-52.0); Hemoglobin 12.7 g/dl (14.0-18.0); Imm Gran Abs Auto 0.03 X10*3/uL (0.00-0.03); Imm Gran Pct Auto 0.4 % (0.0-0.4); Lymphocytes Absolute Auto 1.6 X10*3/uL (1.2-4.9); Mean Corpuscular HGB Conc 31.8 g/dl (31.0-36.0); Mean Corpuscular Hemoglobin 28.9 pg (27.0-33.0); Mean Corpuscular Volume 91.1 fL (80.0-98.0); NRBC Abs Auto 0.000 X10*3/uL (0.0-0.012); NRBC Pct Auto 0.0 /100WBC (0.0-0.2); Platelet Count 218 X10*3/uL (160-400); Red Blood Count 4.39 X10*6/uL (4.60-5.80); White Blood Count 7.1 X10*3/uL (4.8-10.8)
[2025-09-09 07:47] LABS: Albumin Level 3.5 g/dL (3.5-5.0); Anion Gap 18 (12-20); Blood Urea Nitrogen 36 mg/dL (9-16); Calcium 8.4 mg/dL (8.4-10.2); Carbon Dioxide 23 mmol/L (22-29); Chloride 98 mmol/L (96-108); Creatinine Clr Calc Pharmacy 15.5; Estimated Glomerular Filt Rate 10; Magnesium 2.6 mg/dL (1.6-2.6); Potassium 3.6 mmol/L (3.3-5.1); Sodium 135 mmol/L (135-145)
[2025-09-09 08:00] VITALS: BP 175/93; PULSE 78; RESP 18; TEMP 36.6; O2SAT 100
--- NOTE | 2025-09-09 08:01 | P.DS_ITS ---
DS: Providers Provider Date of Service: 09/08/25 Date of admission: 09/04/25 09:46 Date of discharge: 09/08/25 Primary care physician: Cristina Stover MD Consults: 09/04/25 13:07 Consult to Wound Care Routine Consulting Provider: [facility] [place] [facility] Reason for consultation: Unstageable Coccyx Wound, Diabetic Ulcers, and BKA wrap recommendations 09/05/25 07:20 Consult to Nephrology Routine Consulting Provider: [facility] [place] [facility] Reason for consultation: ESRD on HD M/W/ Has provider been notified: No DS: Diagnosis Discharge Diagnosis (1) ESRD (end stage renal disease): Status: Acute DS: Summary Hospital Course Hospital Course: Admission hpi Chief Complaint: Acute Hypoxic Respiratory Failure Patient is a 42 Y M w/ hypertension, hyperlipidemia, diabetes mellitus, c/b ESRD, on hemodialysis //, and COPD, presenting to ED on 09/04 w/ agitation; of note, patient reportedly obtunded, given naloxone by EMS, subsequently became agitated; ED work-up suggestive of pneuomonia and possible cervical osteomyelitis; ED course c/b persistent agitation, necessitating escalating sedation, c/b respiratory depression, intubated Hospital course: A 45-year-old male with a history of diabetes mellitus (complicated by end-stage renal disease on hemodialysis), COPD, opioid dependence, seizure disorder, paroxysmal atrial flutter, and cardiomyopathy was admitted on 09/04/2025 following a cocaine and opioid overdose, which was further complicated by aspiration requiring intubation and ventilatory support. Initial emergency department evaluation raised suspicion for cervical osteomyelitis; however, this was ruled out by a negative tagged white cell scan. The patient was successfully extubated on 09/07, with an unremarkable post- extubation course. He is currently saturating 100% on room air, is afebrile, and has a normal white blood cell count. Hemodialysis has continued as per his usual schedule throughout his hospitalization. Final diagnoses: * Cocaine and opioid overdose * Aspiration pneumonitis * Chronic obstructive pulmonary disease (COPD) * Diabetes mellitus with end-stage renal disease (ESRD) on hemodialysis * Opioid dependence * Seizure disorder * Paroxysmal atrial flutter * Cardiomyopathy * Cervical osteomyelitis (ruled out) Time Attestation Discharge Coordination Time (in mins): 40 Quality: Safe Use of Opioids Does Pt have an Active Cancer Diagnosis on the Problem List?: No Quality: Stroke Does the patient have a stroke diagnosis?: No Physical Exam Vital Signs: Vital Signs: Last Vital Signs Temp 97.4 F 09/09/25 04:00 Pulse 82 09/09/25 04:00 Resp 17 09/09/25 04:00 BP 166/96 H 09/09/25 04:00 Pulse Ox 100 09/09/25 04:00 O2 Del Method Room Air 09/09/25 04:00 O2 Flow Rate 21 09/06/25 11:00 FiO2 60 09/07/25 19:00 BMI result Body Mass Index 23.4 DS: Data Data Completed and Pending Completed studies during hospitalization [Text1]: \ Labs on day of discharge: Laboratory Results - last 24 hr 09/08/25 09/08/25 09/09/25 11:42 16:06 01:01 WBC RBC Hgb Hct MCV MCH MCHC RDW Plt Count MPV Immature Gran % (Auto) Neut % (Auto) Lymph % (Auto) [place] % (Auto) Eos % (Auto) Baso % (Auto) Lymph # (Auto) [place] # (Auto) Eos # (Auto) Baso # (Auto) Abs Immat Gran (auto) Absolute Neuts (auto) Absolute Nucleated RBC Nucleated RBC % (auto) Sodium Potassium Chloride Carbon Dioxide Anion Gap BUN Creatinine Estim Creat Clear Calc Estimated GFR POC Glucose 195 H 167 H 206 H Random Glucose Calcium Phosphorus Magnesium Albumin 09/09/25 09/09/25 04:58 06:42 WBC 7.1 RBC 4.39 L Hgb 12.7 L Hct 40.0 L MCV 91.1 MCH 28.9 MCHC 31.8 RDW 14.6 Plt Count 218 MPV 11.5 Immature Gran % (Auto) 0.4 Neut % (Auto) 64.7 Lymph % (Auto) 22.9 [place] % (Auto) 6.9 Eos % (Auto) 4.7 H Baso % (Auto) 0.4 Lymph # (Auto) 1.6 [place] # (Auto) 0.5 Eos # (Auto) 0.3 Baso # (Auto) 0.0 Abs Immat Gran (auto) 0.03 Absolute Neuts (auto) 4.6 Absolute Nucleated RBC 0.000 Nucleated RBC % (auto) 0.0 Sodium 135 Potassium 3.6 Chloride 98 Carbon Dioxide 23 Anion Gap 18 BUN 36 H Creatinine 6.08 H* Estim Creat Clear Calc 15.5 Estimated GFR 10 POC Glucose 88 Random Glucose 169 H Calcium 8.4 Phosphorus 8.0 H Magnesium 2.6 Albumin 3.5 Preliminary micro results at discharge 09/04/25 08:17 Blood Culture - Preliminary Blood - Venous No growth after 48 hours. Discharge Plan Discharge Anticipated Discharge Date/Time: 09/09/25 08:12 Patient Disposition: Home, Self-Care Discharge Diagnosis: Substance overdose, pulmonary aspiration event, acute respiratory failure Referrals: Cristina Stover MD [Primary Care Provider, [facility]] - 1 Week Discharge Medications: Continued aspirin 81 mg tablet 81 mg PO DAILY Qty: 30 0RF (DME) pen needle, diabetic 32 gauge x 1/4 needle Qty: 100 0RF Rx Instructions: Use four times a day or as directed. (DME) Dakins solution 1/4 strength 500ml See Rx Instructions .Route .MEDSUPPLY Qty: 1 0RF Rx Instructions: As directed (DME) FreeStyle Lite Strips Strip Qty: 100 0RF Rx Instructions: Test four times a day or as directed. (DME) blood-glucose meter Kit Qty: 1 0RF Rx Instructions: As Directed (DME) lancets [FreeStyle Lancets] 28 gauge misc Qty: 100 0RF Rx Instructions: Test four times a day or as directed. buprenorphine-naloxone [Suboxone] 8-2 mg film 1 film sublingual TID 30 Days Qty: 90 2RF Discharge Orders: Discharge Order (Routine); Ordered 09/09/25 Ordered By: Harley Cooper Diet: Diabetic diet Activity on Discharge: As tolerated Stand Alone Forms: Patient Portal Discharge page Print Language: Bengali Care Plan Goals: recovery from overdose, prevent future event, goal to stay away from subsrance use Health Concerns: Substance use disorder Plan of Treatment: Avoid ilicit substance follow through resources to help you stay the course of being clean follow usual course of dialysis take your medications as usual and follow up with your PCP Assessment: see above Discharge Date/Time: 09/09/25 17:30
[2025-09-09] MEDS: Buprenorphine/Naloxone 8/2 mg TAB.SUBL 1 TAB SUBLINGUAL ×2 (09:22→15:44)
[2025-09-09] MEDS: 0.9 % Sodium Chloride Flush 3 ML SYRINGE IVFLUSH ×2 (09:23→15:45)
--- NOTE | 2025-09-09 10:14 | MHC.CM.PN ---
Addendum entered by Shyla Lynne 09/09/25 11:26: Per Patient's request, CM has arranged BLS transport through [facility] for 5 PM(After HD) today. MD & RN are aware. Original Note: Patient has been medically cleared for dc to home today, self care.
[2025-09-09 10:35] LABS: Glucose, Whole Blood 128 mg/dL (60-115)
--- NOTE | 2025-09-09 12:46 | W.PM.DNNEP ---
Subjective Subjective Date of Service: 09/09/25 This patient was seen during dialysis. Interval history: 45-year-old gentleman with underlying diabetes mellitus with end-stage renal disease on hemodialysis, COPD, opioid dependence, seizures, paroxysmal a flutter, cardiomyopathy admitted on 12/2024 with cocaine/opioids overdose further complicated by aspiration requiring intubation and ventilatory support. ER workup was significant for suspicion of cervical osteomyelitis, but now negative on tagged white cell scan. No events overnight. Physical Exam Vital Signs: Vital Signs: Last Vital Signs Temp 97.9 F 09/09/25 08:00 Pulse 78 09/09/25 08:00 Resp 18 09/09/25 08:00 BP 175/93 H 09/09/25 08:00 Pulse Ox 100 09/09/25 08:00 O2 Del Method Room Air 09/09/25 08:00 O2 Flow Rate 21 09/06/25 11:00 FiO2 60 09/07/25 19:00 BMI result Body Mass Index 23.4 Neck: Neck: Yes supple Resp: Auscultation: clear to auscultation bilaterally Cardio: Palpation: no palpable S3 Heart sounds: no rubs GI: Palpation (GI): Soft to palpation Auscultation: normal bowel sounds Neuro: Motor exam (neuro): no asterixis Assessment & Plan Assessment and plan (1) ESRD (end stage renal disease): Status: Acute Plan Admitted with resp failure HD on Friday schedule Remove fluid as tolerated Watch K Concur with other medical management Phos at 8 Add Renvela 800 mg Po with each meal Shall follow with team Time Spent With Patient Time: Total time managing care of this patient today ____ minutes. Procedures Date of Service Date of Service: 09/09/25
--- NOTE | 2025-09-09 12:51 | MHC.RECOVRN ---
TW attempted to meet with pt in 446-1 after Addiction Medicine consult received today for potential overdose 09/04/25. Pt was not present in room on approach Primary RN reports pt is currently receiving dialysis with an expected return time of approximately 1600. RN reports pt is scheduled to discharge today and will have a ride home at 5pm. TW to attempt to meet pt today, before discharge, to complete rec/behavioral health assessment.
[2025-09-09] MEDS: Erythromycin Base 0.5% Oph Oin 1 GM TUBE 1 CM EYE-BOTH (15:45)
[2025-09-09] MEDS: Naloxone HCl Nasal TAKE HOME 4 MG SPRAY 8 MG NOSTRILALT (15:50)
[2025-09-09 16:00] VITALS: BP 144/67; PULSE 93; RESP 20; TEMP 36.1; O2SAT 100
[2025-09-09 16:00] LABS: Glucose, Whole Blood 125 mg/dL (60-115)
--- NOTE | 2025-09-09 16:19 | PC.NURSE ---
Pt reports no pain. Toleratd dialysis well. Discharge instructions given. Pt given two packages of Narcan to take home. Verbalized understanding about how to use them. He will give them to his mom. IV's DC'd Tele DC'd. Awaiting ambulance ride home.
--- NOTE | 2025-09-09 19:31 | MHC.RECOVRN ---
Late entry: Addiction consult placed for pt admitted with OUD Recovery evaluation completed. Please see for additional details. Pt plans to continue to receive buprenorphine at [facility] and accepted a referral for recovery coaching. He declined the need for further intervention or appt for outpt treatment for CRYSTAL at this time.
== END 2025-09-09 17:30 | disposition home or self-care (01) | DRG 812 ==
LOC: HO.ED 08:55 → HO.EDOVER 09:51 → HO.ICU 10:02 → HO.IMC 09-08 11:59
PROVIDERS: Internal Medicine Pulmonary Disease; Nurse Practitioner Family; Admitting Provider Internal Medicine Critical Care Medicine; Emergency Provider Emergency Medicine Emergency Medical Services; PCP Family Medicine; Visit Provider Internal Medicine
DX: T40.2X1A Poisoning by other opioids, accidental (unintentional), initial encounter (principal); J96.01 Acute respiratory failure with hypoxia; J69.0 Pneumonitis due to inhalation of food and vomit; G92.8 Other toxic encephalopathy; I12.0 Hypertensive chronic kidney disease with stage 5 chronic kidney disease or end stage renal disease; N18.6 End stage renal disease; I48.92 Unspecified atrial flutter; J44.9 Chronic obstructive pulmonary disease, unspecified; T40.5X1A Poisoning by cocaine, accidental (unintentional), initial encounter; E11.22 Type 2 diabetes mellitus with diabetic chronic kidney disease; F11.20 Opioid dependence, uncomplicated; Z20.822 Contact with and (suspected) exposure to COVID-19; G40.909 Epilepsy, unspecified, not intractable, without status epilepticus; F19.10 Other psychoactive substance abuse, uncomplicated; Z89.511 Acquired absence of right leg below knee; Z99.2 Dependence on renal dialysis; Z79.82 Long term (current) use of aspirin
CPT/HCPCS: 36415; 70450; 71045; 71260; 72125; 74177; 78306; 80048; 80143; 80179; 80202; 80307; 81001; 82040; 82310; 82550; 82803; 82947; 83605; 83690; 83735; 84100; 84443; 84484; 85025; 85610; 87040; 87205; 87637; 90999; 93005; 94002; 94003; 94799; 99285; A9569; J0613; J0692; J1644; J1920; J1953; J2250; J2470; J2543; J2704; J3010; J3373; P9047; Q9967; S9485

== ENCOUNTER → 2025-09-04 07:57 | Outpatient (BNV) | payer MEDICAID, SELFPAY | PROVIDERS: Admitting Provider Internal Medicine Critical Care Medicine; Emergency Provider Emergency Medicine Emergency Medical Services; PCP Family Medicine; Visit Provider Internal Medicine | DX: I48.91 Unspecified atrial fibrillation (principal); R00.0 Tachycardia, unspecified | CPT/HCPCS: 93010 ==

== ENCOUNTER → 2025-09-04 08:55 | Outpatient (BNV) | payer MEDICAID, SELFPAY | PROVIDERS: Admitting Provider Internal Medicine Critical Care Medicine; Emergency Provider Emergency Medicine Emergency Medical Services; PCP Family Medicine; Visit Provider Radiology Vascular & Interventional Radiology | DX: N18.6 End stage renal disease (principal); R41.82 Altered mental status, unspecified; Z86.79 Personal history of other diseases of the circulatory system; Z86.69 Personal history of other diseases of the nervous system and sense organs; Z46.82 Encounter for fitting and adjustment of non-vascular catheter | CPT/HCPCS: 70450; 71045; 71260; 72125; 74177 ==

== ENCOUNTER 2025-09-04 09:46 | Outpatient (BNV) | payer MEDICAID, SELFPAY | END 2025-09-06 12:32 | PROVIDERS: Admitting Provider Internal Medicine Critical Care Medicine; Emergency Provider Emergency Medicine Emergency Medical Services; PCP Family Medicine; Visit Provider Radiology Diagnostic Radiology | DX: Z03.89 Encounter for observation for other suspected diseases and conditions ruled out (principal) | CPT/HCPCS: 78306 ==

== ENCOUNTER → 2025-09-04 09:46 | Outpatient (BNV) | payer MEDICAID, SELFPAY | PROVIDERS: Admitting Provider Internal Medicine Critical Care Medicine; Emergency Provider Emergency Medicine Emergency Medical Services; PCP Family Medicine; Visit Provider Internal Medicine Critical Care Medicine | DX: J96.00 Acute respiratory failure, unspecified whether with hypoxia or hypercapnia (principal); J18.9 Pneumonia, unspecified organism; G93.40 Encephalopathy, unspecified | CPT/HCPCS: 99223 ==

== ENCOUNTER → 2025-09-04 09:46 | Outpatient (BNV) | payer MEDICAID, SELFPAY | PROVIDERS: Admitting Provider Internal Medicine Critical Care Medicine; Emergency Provider Emergency Medicine Emergency Medical Services; PCP Family Medicine; Visit Provider Internal Medicine Hypertension Specialist | DX: N18.6 End stage renal disease (principal) | CPT/HCPCS: 90935; 99223; 99232 ==

== ENCOUNTER → 2025-09-04 09:46 | Outpatient (BNV) | payer MEDICAID, SELFPAY | PROVIDERS: Admitting Provider Internal Medicine Critical Care Medicine; Emergency Provider Emergency Medicine Emergency Medical Services; PCP Family Medicine; Visit Provider Internal Medicine | DX: N18.6 End stage renal disease (principal) | CPT/HCPCS: 99239 ==

== ENCOUNTER → 2025-09-04 09:46 | Outpatient (BNV) | payer MEDICAID, SELFPAY | PROVIDERS: Admitting Provider Internal Medicine Critical Care Medicine; Emergency Provider Emergency Medicine Emergency Medical Services; PCP Family Medicine; Visit Provider Internal Medicine Pulmonary Disease | DX: E11.22 Type 2 diabetes mellitus with diabetic chronic kidney disease (principal); N18.6 End stage renal disease; F19.10 Other psychoactive substance abuse, uncomplicated; T17.900A Unspecified foreign body in respiratory tract, part unspecified causing asphyxiation, initial encounter; Z99.2 Dependence on renal dialysis | CPT/HCPCS: 99291 ==

== ENCOUNTER 2025-09-26 10:32 | Inpatient (IN) | payer MEDICAID, SELFPAY ==
[2025-09-26] VITALS (7 sets, daily range): BP systolic 141–200; BP diastolic 85–95; PULSE 79–99; RESP 12–19; TEMP 36.4–36.8; O2SAT 97–99; BMI 25.6
--- NOTE | ~2025-09-26 | CT_ITS ---
EXAMINATION: CT HEAD WITHOUT CONTRAST CLINICAL INFORMATION: Mental status changes. COMPARISON: 09/04/2025. 05/11/2023. TECHNIQUE: Contiguous axial imaging was performed from the skull base to vertex without intravenous administration of contrast. This CT examination was performed using dose optimization techniques as appropriate, variously including the following: *Automated exposure control *Adjustment of mA and/or kV according to patient size (this includes techniques or standardized protocols for targeted exams where dose is matched to indication/reason for exam; i.e. extremities or head) *Use of iterative reconstruction technique FINDINGS: There is no evidence of intracranial hemorrhage or extra-axial fluid collection. There is no mass effect, or edema. No CT evidence of acute territorial infarct. Ventricles, sulci, and cisterns are normal in size and configuration for patient age. No hydrocephalus. No midline shift. Negative hyperdense MCA sign. Negative insular ribbon sign. No significant white matter attenuation abnormalities. Normal pituitary. Mild atheromatous calcification of the bilateral carotid siphons and V4 segments vertebral arteries bilaterally. Globes and orbital contents image normally. Extracranial soft tissues demonstrate a small residual low occipital scalp hematoma, decreased from prior. The paranasal sinuses, mastoid air cells, and tympanic cavities are normally aerated. No suspicious bony abnormalities. There are no acute fractures evident. CT/CT head/brain wo IV con IMPRESSION: 1. No acute intracranial abnormality. 2. Small residual low occipital scalp hematoma, improving. Electronically signed by: Jorge Luis Soto MD 09/26/2025 11:33 AM [facility]
--- NOTE | ~2025-09-26 | XR_ITS ---
EXAMINATION: XR CHEST CLINICAL INFORMATION: SOB COMPARISON: None available. TECHNIQUE: Frontal view of the chest was obtained. FINDINGS: Prominent central bronchovascular markings. Question Iona B lines at the left lung base. Some of these lines extend outside the ribs and this may be related to something overlying the patient or on the patient's clothing. Findings are questionable for mild pulmonary edema. Differential would include airways disease. No consolidation. No pleural effusion or pneumothorax. Slightly prominent cardiac silhouette similar to prior exam. Right jugular permacath with tip projecting over the cavoatrial junction. Bony structures are unremarkable. XR/XR chest 1V IMPRESSION: Increased central bronchovascular markings and question Iona B lines at the left lung base. This may represent mild pulmonary edema. Differential would include airways disease. Electronically signed by: Rosalee Hernandez MD 09/26/2025 12:46 PM [facility]
--- NOTE | 2025-09-26 10:50 | ECG_ITS ---
Test Reason : SEIZURE Blood Pressure : */* mmHG Vent. Rate : 80 BPM Atrial Rate : 80 BPM P-R Int : 362 ms QRS Dur : 100 ms QT Int : 380 ms P-R-T Axes : * 36 95 degrees QTcB Int : 438 ms Sinus rhythm with 1st degree A-V block T wave abnormality, consider anterior ischemia Abnormal ECG When compared with ECG of 04-Sep-2025 09:29, VT interval has increased Vent. rate has decreased by 39 bpm Criteria for Anterior infarct are no longer Present ST no longer elevated in Anterior leads T wave inversion no longer evident in Inferior leads T wave inversion now evident in Anterior leads Referred By: Jose Samuel Electronically Signed By: Fabio Whitten
--- NOTE | 2025-09-26 10:51 | ED_ITS ---
HPI - General Adult General Chief complaint: Seizure Stated complaint: SZ,LETHARGIC,H/O DIALYSIS PER EMS Time Seen by Provider: 09/26/25 10:43 Source: patient Mode of arrival: EMS Limitations: no limitations History of Present Illness HPI narrative: This is 45 years old the patient with history of substance abuse including cocaine, history of chronic renal failure on hemodialysis Friday, right BKA presented to the emergency department because of possible seizure. He arrived awake and alert he is not postictal, he has no tongue biting he has no urine incontinence. Patient stated that he feels well patient stated that his mother called an ambulance because he was lethargic. Today is dialysis day he has no gone Onset (ago): hour(s) (1) Radiation: non-radiation Severity: mild Relieving factors: none Exacerbating factors: none Associated symptoms: denies other symptoms Related Data Previous Rx's ?Medication ?Instructions ?Recorded Dakins solution 11/06 strength #1 ea 09/25/24 pen needle, diabetic 32 gauge x #100 ea 09/25/2411/06 blood sugar diagnostic (FreeStyle #100 ea 09/29/24 Lite Strips) blood-glucose meter #1 ea 09/29/24 lancets 28 gauge (FreeStyle #100 ea 09/29/24 Lancets) buprenorphine 8 mg-naloxone 2 mg 1 film sublingual TID 30 days #90 08/01/25 sublingual film (Suboxone) ea Allergies Allergy/AdvReac Type Severity Reaction Status Date / Time No Known Allergies (No Known Allergy Verified 09/26/25 10:42 Allergies*) Review of Systems 2 Constitutional: Constitutional: Denies chills and Denies fever(s) Cardiovascular: Cardiovascular: Reports no additional cardiovascular complaints Respiratory: Respiratory: Reports no additional respiratory complaints [facility] Past Medical History Attestation statement: The following information was validated with the patient. [facility] Narrative: Substance abuse, chronic renal failure, peripheral vascular disease, diabetes Medical History PVD (peripheral vascular disease) ESRD (end stage renal disease) Diabetic skin ulcer Opioid use disorder, severe, dependence Anemia in chronic kidney disease (CKD) ESRD (end stage renal disease) on dialysis Cardiomyopathy Pericardial effusion Leukocytosis Transfusion history Atrial flutter, paroxysmal COPD (chronic obstructive pulmonary disease) Constipation Callus of foot Seizure Polysubstance abuse CKD (chronic kidney disease) stage 3, GFR 30-59 ml/min Foot osteomyelitis, left Amputation of toe of right foot Diabetic ulcer of right foot Sleep apnea Diabetes HTN (hypertension) Surgical History History of surgery on arm History of surgery History of surgery 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 History of surgical procedure (~04/24/23) Social History Social History Household Members: Family Household Members Other:: Mother Housing: Unknown / Unable to assess Are you a primary child care counselor to a significant other at home: No Alcohol intake: former 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 Patient Tobacco Use Status: Tobacco use Unknown Tobacco use type: Cigarette Cigarette Packs Per Day: 0.5 Cigarettes Per Day: 6 Years Smoked: 33 e-Cigarette/Vaping Use: Currently Using Second Hand Smoke Exposure: Yes Substance Use Type: Crack/Cocaine and Heroin Advance Directives: No Advance Directives Information Provided: Yes Do you have a plan to hurt others: No Plan service: No Physical Exam ED Exam Exam: He is awake alert oriented x3 not acute distress Vital Signs: Vital Signs - 24 hr 09/26/25 10:39 09/26/25 11:02 09/26/25 11:37 Temperature 98 F 98.3 F Pulse Rate 84 79 Respiratory Rate 19 12 Blood Pressure 173/93 H 177/88 H Pulse Oximetry 99 97 Oxygen Delivery Method Room Air Room Air 09/26/25 12:32 Temperature Pulse Rate 84 Respiratory Rate 16 Blood Pressure 177/85 H Pulse Oximetry 98 Oxygen Delivery Method Room Air BMI result Body Mass Index 25.6 His vital signs are stable Const General: cooperative Nutritional Appearance: well nourished Orientation/consciousness: oriented to person and patient oriented x3 HENMT Head: Yes normal to inspection Ears: hearing grossly normal bilaterally General nose exam: Normal external nose present Face and sinus: Yes normal facial exam Mouth: Normal oral and palatal mucosa present Throat: Yes posterior oropharynx normal Neck Neck: Yes normal visual inspection, Yes full ROM and Yes no lymphadenopathy Chest Chest palpation & inspection: normal inspection of the chest Resp Effort & Inspection: normal respiratory effort Auscultation: clear to auscultation bilaterally Cardio Jugular venous distension: no JVD Rate: regular rate Rhythm: regular rhythm GI Inspection: Yes normal to inspection Palpation (GI): Soft to palpation Skin General skin exam: no rashes or lesions noted Lesions: no lesions Rashes: no rashes Neuro General: oriented to person and patient oriented x3 Cranial nerves: Yes CN's II-XII intact bilaterally Course Reevaluation(s) Reevaluation #1: We will patient had a generalized tonic-clonic seizure he was given 5 mg of Valium he was loaded with Keppra 3 gr IV ( loading dose is 40-60 mg kg with maximum 4,500 mg) the patient is already admitted I notified the hospitalist Vesna about the seizure Time: 13:44 Medications Administered Discontinued Medications Generic Name Dose Route Start Last Admin Trade Name Attilaq PRN Reason Stop Dose Admin Diazepam 5 mg 09/26/25 13:33 09/26/25 13:30 Diazepam 10 Mg/2 Ml Cartridge IVPUSH 09/26/25 13:34 5 mg STAT STA Administration Levetiracetam 2,000 mg/ Sodium 120 mls @ 480 mls/hr 09/26/25 13:33 09/26/25 14:02 Chloride IV 09/26/25 13:47 Infused ONCE ONE Infusion Levetiracetam 1,000 mg in 100 mls @ 400 mls/hr 09/26/25 13:38 09/26/25 14:18 Keppra IV 09/26/25 13:52 400 mls/hr ONCE ONE Administration Medical Decision Making Medical Decision Making [facility] Narrative: Patient presented for possible seizure we will check blood work he is not postictal he has no evidence of generalized tonic-clonic seizure no tongue biting no incontinent of urine no postictal status he does have history of substance abuse including cocaine Differential Diagnosis Differential Diagnoses: The differential diagnosis associated with the presentation includes Admission/Observation Consideration of admission/observation: Escalation of care including admission/observation considered Consult Healthcare Provider Management of the patient was discussed with: Hospitalist Lab Data [facility] Lab Attestation statement: I reviewed the patient's lab results. 09/26/25 10:56 09/26/25 10:56 Labs: Lab Results 09/26/25 09/26/25 Range/Units 10:56 13:11 WBC 11.0 H (4.8-10.8) X10*3/uL RBC 4.07 L (4.60-5.80) X10*6/uL Hgb 11.7 L (14.0-18.0) g/dl Hct 37.2 L (42.0-52.0) % MCV 91.4 (80.0-98.0) fL MCH 28.7 (27.0-33.0) pg MCHC 31.5 (31.0-36.0) g/dl RDW 14.6 (11.0-16.0) % Plt Count 224 (160-400) X10*3/uL MPV 11.1 (9.4-12.4) fL Immature Gran % (Auto) 0.4 (0.0-0.4) % Neut % (Auto) 74.0 H (45-73) % Lymph % (Auto) 15.9 L (20-40) % Kenton % (Auto) 6.4 (2-11) % Eos % (Auto) 2.8 (0-4) % Baso % (Auto) 0.5 (0-2) % Lymph # (Auto) 1.8 (1.2-4.9) X10*3/uL Kenton # (Auto) 0.7 (0.1-1.2) X10*3/uL Eos # (Auto) 0.3 (0.0-0.4) X10*3/uL Baso # (Auto) 0.1 (0.0-0.2) X10*3/uL Abs Immat Gran (auto) 0.04 H (0.00-0.03) X10*3/uL Absolute Neuts (auto) 8.2 (2.0-8.3) x10*3/uL Absolute Nucleated RBC 0.000 (0.0-0.012) X10*3/uL Nucleated RBC % (auto) 0.0 (0.0-0.2) /100WBC Sodium 133 L (135-145) mmol/L Potassium 5.5 H D (3.3-5.1) mmol/L Chloride 96 (96-108) mmol/L Carbon Dioxide 25 (22-29) mmol/L Anion Gap 18 (12-20) BUN 57 H (9-16) mg/dL Creatinine 8.28 H* (0.5-1.4) mg/dL Estim Creat Clear Calc 11.0 Estimated GFR 7 Random Glucose 122 H (60-115) mg/dL Calcium 8.3 L (8.4-10.2) mg/dL Total Bilirubin 0.3 (0.0-1.0) mg/dL AST 37 (5-37) U/L ALT < 6 (0-40) U/L Alkaline Phosphatase 106 (39-117) U/L Troponin I High Sens 899.0 H* D (<3.5-35.0) ng/L Total Protein 8.2 H (6.5-8.0) g/dL Albumin 3.5 (3.5-5.0) g/dL Urine Opiates Screen POSITIVE H (Not Detect) Ur Buprenorphine Scrn Not Detected (Not Detect) ng/mL Ur Oxycodone Screen Not Detected (Not Detect) ng/mL Urine Methadone Screen Not Detected (Not Detect) ng/mL Urine Fentanyl Screen POSITIVE H (Not Detect) Ur Barbiturates Screen Not Detected (Not Detect) Ur Phencyclidine Scrn Not Detected (Not Detect) Ur Amphetamines Screen Not Detected (Not Detect) U Benzodiazepines Scrn Not Detected (Not Detect) Urine Cocaine Screen POSITIVE H (Not Detect) U Marijuana (THC) Screen Not Detected (Not Detect) Independent Interpretation I performed an independent interpretation of an: EKG Interpretation: EKG was reviewed interpreted by me as normal sinus rhythm rate [address]-T changes in the lateral leads Radiology Impression Discussion of test interpretation with radiology: I have reviewed the radiologist's reading. Independent Historian Clinical information obtained from an independent historian. History obtained from or confirmed by: EMS Spoke with the EMS External Record Review External record reviewed: Inpatient record Chronic Conditions Patient?s care impacted by: Diabetes and Other (Chronic renal failure on hemodialysis) Critical Care Time Critical Care Time Critical Care Time: Yes Total Critical Care Time: 60 Attestation: IV valium IV keppra Discharge Plan Discharge Clinical Impression: Acute alteration in mental status, Acute hyperkalemia, Substance abuse, Seizure Chronic renal failure Qualifiers: Chronic kidney disease stage: stage 5 (GFR < 15) Qualified Code(s): N18.5 - Chronic kidney disease, stage 5 CHF (congestive heart failure) Qualifiers: Heart failure type: other Qualified Code(s): I50.9 - Heart failure, unspecified Patient Disposition: Admitted As Inpatient
[2025-09-26 11:06] LABS: MANUAL DIFF FLAG NO
[2025-09-26 11:11] LABS: Hematocrit 37.2 % (42.0-52.0); Hemoglobin 11.7 g/dl (14.0-18.0); Imm Gran Abs Auto 0.04 X10*3/uL (0.00-0.03); Imm Gran Pct Auto 0.4 % (0.0-0.4); Lymphocytes Absolute Auto 1.8 X10*3/uL (1.2-4.9); Mean Corpuscular HGB Conc 31.5 g/dl (31.0-36.0); Mean Corpuscular Hemoglobin 28.7 pg (27.0-33.0); Mean Corpuscular Volume 91.4 fL (80.0-98.0); NRBC Abs Auto 0.000 X10*3/uL (0.0-0.012); NRBC Pct Auto 0.0 /100WBC (0.0-0.2); Platelet Count 224 X10*3/uL (160-400); Red Blood Count 4.07 X10*6/uL (4.60-5.80); White Blood Count 11.0 X10*3/uL (4.8-10.8)
[2025-09-26 11:26] LABS: Alanine Aminotransferase < 6 U/L (0-40); Albumin Level 3.5 g/dL (3.5-5.0); Alkaline Phosphatase 106 U/L (39-117); Anion Gap 18 (12-20); Aspartate Amino Transferase 37 U/L (5-37); Blood Urea Nitrogen 57 mg/dL (9-16); Calcium 8.3 mg/dL (8.4-10.2); Carbon Dioxide 25 mmol/L (22-29); Chloride 96 mmol/L (96-108); Creatinine Clr Calc Pharmacy 11.0; Estimated Glomerular Filt Rate 7; Potassium 5.5 mmol/L (3.3-5.1); Sodium 133 mmol/L (135-145); Total Protein 8.2 g/dL (6.5-8.0)
--- NOTE | 2025-09-26 11:44 | MHC.CM.ED ---
Patient came to ER due to lethargy and seizures. Per Dr Samuel, patient was scheduled for HD at [facility] on Tuesday 09/[address] Samuel inquiring if they can accommodate patient today. Spoke with [facility]. They do not have availability today. But patient is scheduled for HD tomorrow at 6am. Dr Samuel aware. Continue to monitor for d/c needs.
[2025-09-26 13:03] LABS: Troponin-I High Sensitivity 899.0 ng/L (<3.5-35.0)
--- NOTE | 2025-09-26 13:09 | MHC.EDTECH ---
pt urinated 250mL of yellow urine into urinal, urine sample collected and sent to lab
[2025-09-26 13:28] LABS: Cannabinoid Screen Urine Not Detected (Not Detect)
[2025-09-26] MEDS: diazePAM 10 MG/2 ML CARTRIDGE 5 MG IVPUSH (13:30)
--- NOTE | 2025-09-26 13:47 | P.HPHOSP_ITS ---
History of Present Illness Date of Service: 09/26/25 Chief Complaint: Seizure 45-year-old man presented to the ER with a breakthrough seizure. Apparently patient had a seizure at home in his mother called EMS. Patient has a history of end-stage renal disease on dialysis Friday, Friday and Friday and missed dialysis this morning. On arrival to the ER he was postictal and even during the interview he was still little bit vague. Patient denied any chest pain, shortness breath, nausea, vomiting, diarrhea. In the ER his creatinine was noted to be 8.28, potassium 5.5, troponin 8 199 with no complaints of chest pain and no ischemic changes noted on EKG. Chest x-ray with increased central bronchovascular markings possibly representing pulmonary edema, possibly. Patient also had a witnessed seizure in the ER, apparently he was eating a sandwich, choked, had tongue biting. Nasal trumpet placed. Patient was given Valium and loaded with Keppra. He will be admitted for further management and treatment of volume overload and breakthrough seizure. Review of Systems 2 Review of Systems: Yes Unobtainable due to mental status [facility] Medical History PVD (peripheral vascular disease) ESRD (end stage renal disease) Diabetic skin ulcer Opioid use disorder, severe, dependence Anemia in chronic kidney disease (CKD) ESRD (end stage renal disease) on dialysis Cardiomyopathy Pericardial effusion Leukocytosis Transfusion history Atrial flutter, paroxysmal COPD (chronic obstructive pulmonary disease) Constipation Callus of foot Seizure Polysubstance abuse CKD (chronic kidney disease) stage 3, GFR 30-59 ml/min Foot osteomyelitis, left Amputation of toe of right foot Diabetic ulcer of right foot Sleep apnea Diabetes HTN (hypertension) Surgical History History of surgery on arm History of surgery History of surgery 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 History of surgical procedure (~04/24/23) Social History Household Members: Other Household Members Other:: Mom Housing: Unknown / Unable to assess Are you a primary urgent care nurse practitioner to a significant other at home: No Alcohol intake: former 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 Patient Tobacco Use Status: Tobacco use Unknown Tobacco use type: Cigarette Cigarette Packs Per Day: 0.5 Cigarettes Per Day: 6 Years Smoked: 33 e-Cigarette/Vaping Use: Currently Using Second Hand Smoke Exposure: Yes Substance Use Type: Crack/Cocaine and Heroin Advance Directives: No Advance Directives Information Provided: Yes Do you have a plan to hurt others: No Plan Recently lost weight without trying: Unsure How much weight loss: Unsure service: No Meds Allergies Allergy/AdvReac Type Severity Reaction Status Date / Time No Known Allergies (No Known Allergy Verified 09/26/25 10:42 Allergies*) Active Medications: Current Medications Acetaminophen (Acetaminophen 325 Mg Tablet) 650 mg PO Q6H PRN PRN Reason: Pain, Mild 1-3,fever,headache Calcium Carbonate (Calcium Carbonate 750 Mg Tab.Chew) 750 mg PO Q4H PRN PRN Reason: Heartburn Heparin Sodium (Porcine) (Heparin Sodium,Porcine 5,000 Unit/Ml Vial) 5,000 unit SUBCUT Q12H [facility] Levetiracetam (Keppra) 1,000 mg in 100 mls @ 400 mls/hr IV ONCE ONE Stop: 09/26/25 13:52 Magnesium Hydroxide (Milk Of Magnesia 30 Ml Oral.Susp) 30 ml PO DAILY PRN PRN Reason: Constipation Melatonin (Melatonin 3 Mg Tablet) 6 mg PO BEDTIME PRN PRN Reason: Insomnia Ondansetron HCl (Ondansetron Hcl 4 Mg/2 Ml Vial) 4 mg IVPUSH Q8H PRN PRN Reason: Nausea and Vomiting Sodium Chloride (0.9 % Sodium Chloride Flush 3 Ml Syringe) 3 ml IVFLUSH QSHIFT [facility] Physical Exam 2 Vital Signs and Narrative: Vital Signs: Last Vital Signs Temp 98.3 F 09/26/25 11:37 Pulse 84 09/26/25 12:32 Resp 16 09/26/25 12:32 BP 177/85 H 09/26/25 12:32 Pulse Ox 98 09/26/25 12:32 O2 Del Method Room Air 09/26/25 12:32 BMI result Body Mass Index 25.6 Appearing in no acute distress head is normocephalic atraumatic eyes pupils are PERRLA sclera is anicteric mouth throat mucous membranes are intact and moist neck is supple no lymphadenopathy, no JVD noted lung sounds are clear to auscultation heart regular rate rhythm, clear S1, S2 positive bowel sounds, abdomen is soft, nontender neuro patient is alert, somewhat vague during interview Results Labs 09/26/25 10:56 09/26/25 10:56 Labs: Laboratory Results - last 24 hr 09/26/25 09/26/25 10:56 13:11 MCV 91.4 MCH 28.7 MCHC 31.5 RDW 14.6 Plt Count 224 MPV 11.1 Immature Gran % (Auto) 0.4 Neut % (Auto) 74.0 H Lymph % (Auto) 15.9 L Benzie % (Auto) 6.4 Eos % (Auto) 2.8 Baso % (Auto) 0.5 Lymph # (Auto) 1.8 Benzie # (Auto) 0.7 Eos # (Auto) 0.3 Baso # (Auto) 0.1 Abs Immat Gran (auto) 0.04 H Absolute Neuts (auto) 8.2 Absolute Nucleated RBC 0.000 Nucleated RBC % (auto) 0.0 Anion Gap 18 Estim Creat Clear Calc 11.0 Estimated GFR 7 Random Glucose 122 H Calcium 8.3 L Total Bilirubin 0.3 AST 37 ALT < 6 Alkaline Phosphatase 106 Troponin I High Sens 899.0 H* D Total Protein 8.2 H Albumin 3.5 Urine Opiates Screen POSITIVE H Ur Buprenorphine Scrn Not Detected Ur Oxycodone Screen Not Detected Urine Methadone Screen Not Detected Urine Fentanyl Screen POSITIVE H Ur Barbiturates Screen Not Detected Ur Phencyclidine Scrn Not Detected Ur Amphetamines Screen Not Detected U Benzodiazepines Scrn Not Detected Urine Cocaine Screen POSITIVE H U Marijuana (THC) Screen Not Detected Imaging Radiologist's Impressions: Impressions Head CT 09/26/25 11:11 IMPRESSION: 1. No acute intracranial abnormality. 2. Small residual low occipital scalp hematoma, improving. Electronically signed by: Jorge Luis Soto MD 09/26/2025 11:33 AM EST RP Chest X-Ray 09/26/25 12:25 IMPRESSION: Increased central bronchovascular markings and question Iona B lines at the left lung base. This may represent mild pulmonary edema. Differential would include airways disease. Electronically signed by: Rosalee Hernandez MD 09/26/2025 12:46 PM EST RP Assessment and Plan (1) Chronic renal failure: Qualifiers: Chronic kidney disease stage: stage 5 (GFR < 15) Qualified Code(s): N 18.5 - Chronic kidney disease, stage 5 Status: Acute Plan 45-year-old man admitted with breakthrough seizure, on hemodialysis Friday, Friday and Friday. Breakthrough seizure Monitor on telemetry Seizure precautions Given Valium and IV Keppra in the ER. Neurology consultation Keppra po BID End-stage renal disease on hemodialysis MWF Nephrology consultation to set up dialysis. Diabetes mellitus Sliding scale, ADA diet Hypertension with Elevated blood pressure reading likely secondary to missed dialysis DVT prophylaxis with heparin Full code Quality Stroke Does the patient have a stroke diagnosis?: No VTE Prior VTE?: No VTE Risk Level:: Medical - moderate - high VTE Device Contraindication: Treatment Not Indicated VTE Drug Contraindication: N/A - Med Ordered
--- NOTE | 2025-09-26 14:03 | PC.NURSE ---
Pt was eating a sandwich and started having a seizure. Witnessed lasting approx 1min. Airway was cleared by RN. MD placed nasal trumpet and 100%NRB was put on pt. Bloody secretions suctioned. Keppra and valium given. 2nd IV established. Admitting provider notified.
[2025-09-26] MEDS: levETIRAcetam in NaCl (iso-os) 1,000 MG/100 ML PIGGYBACK 400 MG IV (14:18)
[2025-09-26 14:29] LABS: Glucose, Whole Blood 130 mg/dL (60-115)
--- NOTE | 2025-09-26 14:50 | PHA.MEDREC ---
Addendum entered by Nai Cain RPh 09/26/25 15:14: MED REC REVIEWED BY [facility] Original Note: Pharmacy Consult ? Medication Reconciliation Pharmacy has completed the medication reconciliation. Spoke with pt mother over the phone and she was able to confirm pt Suboxone, but states it has been at least a week or more since pt has taken any.
[2025-09-26] MEDS: 0.9 % Sodium Chloride Flush 3 ML SYRINGE IVFLUSH ×2 (15:08→20:36)
--- OUTSIDE RECORDS SUMMARY | 2025-09-26 15:16 | XMS_ITS | Encounter Summary ---
Author Organization [employer] Address [address] [facility] [address] [place] [address] Care Team Providers Care Cold Strip Feeder Name Role Phone Deandre Riddle RN Unavailable [phone] DavidTalya Unavailable Reason for Visit * Reason Comments Med Refill Encounter Details Date Type Department Care Team ([facility] st Contact Info) Description 01/26/2025 Refill [facility] [address] [place] [address] Araseli Rucker, ANP [address] [place] [address] Other insomnia Social History Tobacco Use Types [...] Diagnosis Other insomnia documented in this encounter Care Teams Cold Strip Feeder Relationship Specialty Start Date End Date Deandre Riddle RN [address] [place] [id number] Registered Nurse Family Medicine 09/05/25 Talya Hernandez 09/05/25 documented as of this encounter
--- OUTSIDE RECORDS SUMMARY | 2025-09-26 15:16 | XMS_ITS | Encounter Summary ---
Author Organization [employer] Address [address] [facility] [address] [place] [address] Care Team Providers Care Blow Molder Name Role Phone Deandre Riddle RN Unavailable [phone] DavidTalya Unavailable Reason for Visit * Reason Comments Med Refill Encounter Details Date Type Department Care Team ([facility] st Contact Info) Description 07/27/2025 Refill [facility] [address] [place] [address] Cristina Stover MD [address] [place] [address] Type 2 diabetes mellitus with stage 3 chronic kidney disease, with long-term current use of insulin, unspecified whether stage 3a or 3b CKD (CMS/HCC); Diabetes mellitus, stable ([facility]/HCC) Social History Tobacco Use Types Packs/Day Years [...] a refill for FREESTYLE LITE test strip. Second [facility] advised he not a pt we us as he has not been seen since 07/14/2023 and that he need to establish care again in regard of him to gethis test strip. Second Miller toñito pt twice, no responded documented in [...] stated as uncontrolled documented in this encounter Care Teams Blow Molder Relationship Specialty Start Date End Date Deandre Riddle RN [address] [place] [address] [place] [id number] Registered Nurse Family Medicine 09/05/25 Talya Hernandez 09/05/25 documented as of this encounter
--- OUTSIDE RECORDS SUMMARY | 2025-09-26 15:16 | XMS_ITS | Encounter Summary ---
Author Organization [employer] Address [address] [facility] [address] [place] [address] Care Team Providers Care Director Of Transportation Name Role Phone Deandre Riddle RN Unavailable [phone] Talya Hernandez Unavailable Encounter Details Date Type Department Care Team (Late st Contact Info) Description 07/29/2025 Telephone [facility] [address] [place] [address] Kyle Mitchell MD [address] [place], [place] [phone] Social History Tobacco Use Types Packs/Day Years [...] t he electric, gas, oil or water [employer] threatened to shut off services in your [...] in this encounter Care Teams Director Of Transportation Relationship Specialty Start Date End Date Deandre Riddle RN [address] [place] [id number] Registered Nurse Family Medicine 09/05/25 Talya Hernandez 09/05/25 documented as of this encounter
--- OUTSIDE RECORDS SUMMARY | 2025-09-26 15:16 | XMS_ITS | Encounter Summary ---
Author Organization [employer] Address [address] [facility] [address] [place] [address] Care Team Providers Care R And D Lab Technician Name Role Phone Deandre Riddle RN Unavailable [phone] DavidTalya Unavailable Reason for Visit * Reason Comments Med Refill Encounter Details Date Type Department Care Team ([facility] st Contact Info) Description 06/13/2025 Refill [facility] [address] [place] [address] Araseli Rucker, ANP [address] [place] [address] Other insomnia Social History Tobacco Use Types [...] insomnia documented in this encounter Care Teams R And D Lab Technician Relationship Specialty Start Date End Date Deandre Riddle RN [address] [place] [id number] Registered Nurse Family Medicine 09/05/25 Talya Hernandez 09/05/25 documented as of this encounter
--- OUTSIDE RECORDS SUMMARY | 2025-09-26 15:17 | XMS_ITS | Encounter Summary ---
Author Organization [employer] Address [address] [facility] [address]t [place] [address] Care Team Providers Care Media Relations Coordinator Name Role Phone Deandre Riddle RN Unavailable [phone] Talya Hernandez Unavailable Encounter Details Date Type Department Care Team (Latest Contact Info) Description 08/23/2025 Results Follow-Up [facility] [address] [place] [address] Cristina Stover MD [address] [place] [address] CBC, Prothrombin Time-INR, Partial Thromboplastin Time, Activated [...] filedocumented in this encounter Care Teams Media Relations Coordinator Relationship Specialty Start Date End Date Deandre Riddle RN [address] [place] [id number] Registered Nurse Family Medicine 09/05/25 Talya Hernandez 09/05/25 documented as of this encounter
--- OUTSIDE RECORDS SUMMARY | 2025-09-26 15:17 | XMS_ITS | Encounter Summary ---
Author Organization [employer] Address [address] [facility] 7 [place] [address] Care Team Providers Care Security Patrol Officer Name Role Phone Cristina Stover MD Primary Care Provider [phone] Cristina Stover MD Primary Care Provider [phone] Cristina Stover MD Primary Care Provider [phone] Deandre Riddle RN Unavailable [phone] Talya Hernandez Unavailable Encounter Details Date Type Department Care Team (Late st Contact Info) Description 01/17/2023 Orders Only [facility] [address] [place], [place] [phone] Nay Benitez LPN Social History Tobacco Use [...] on filedocumented in this encounter Care Teams Security Patrol Officer Relationship Specialty Start Date End Date Cristina Stover MD [address] [place], [place] [phone] PCP - General Family Medicine 05/20/14 12/30/23 Cristina Stover MD [address] [place], [place] [phone] PCP - General Family Medicine 01/06/24 08/29/24 Cristina Stover MD [address] [place] [id number] PCP - General Family Medicine 11/29/24 12/20/24 Deandre Riddle RN [address] [place] [id number] Registered Nurse Family Medicine 09/05/25 Talya Hernandez 09/05/25 documented as of this encounter
--- OUTSIDE RECORDS SUMMARY | 2025-09-26 15:17 | XMS_ITS | Encounter Summary ---
Author Organization [employer] Address [address] [facility] 7t [place] [address] Care Team Providers Care Brokerage Coordinator Name Role Phone Deandre Riddle RN Unavailable [phone] DavidTalya Unavailable Reason for Visit * Reason Comments Med Refill Encounter Details Date Type Department Care Team ([facility] st Contact Info) Description 07/25/2025 Refill [facility] [address] [place], [place] [phone] Cristina Stover MD [address] [place] [address] Type 2 diabetes mellitus with stage 3 [...] 3b CKD (HCC) documented in this encounter Care Teams Brokerage Coordinator Relationship Specialty Start Date End Date Deandre Riddle RN [address] [place] [address] [place] [address] Registered Nurse Family Medicine 09/05/25 Talya Hernandez 09/05/25 documented as of this encounter
--- OUTSIDE RECORDS SUMMARY | 2025-09-26 15:17 | XMS_ITS | Encounter Summary ---
Author Organization [employer] Address [address] [facility] [address] [address] Care Team Providers Care Plumbing Hardware Assembler Name Role Phone Cristina Stover MD Primary Care Provider [phone] Cristina Stover MD Primary Care Provider [phone]- [phone] Cristina Stover MD Primary Care Provider [phone]- [phone] Deandre Riddle RN Unavailable [phone] Talya Hernandez Unavailable Encounter Details Date Type Department Care Team (Late st Contact Info) Description 06/04/2023 Orders Only [facility] [address] [place] [address] Cristina Stover MD [address] [place] [address] Uncomplicated opioid dependence (CMS/HCC); Polysubstance abuse (CMS/HCC); [...] type documented in this encounter Care Teams Plumbing Hardware Assembler Relationship Specialty Start Date End Date Cristina Stover MD [address] [place] [id number] PCP - General Family Medicine 05/20/14 12/30/23 Cristina Stover MD [address] [place] [address] PCP - General Family Medicine 01/06/24 08/29/24 Cristina Stover MD [address] [place] [id number] PCP - General Family Medicine 11/29/24 12/20/24 Deandre Riddle, JOVITA [address] [place] [address] Registered Nurse Family Medicine 09/05/25 Talya Hernandez 09/05/25 documented as of this encounter
--- OUTSIDE RECORDS SUMMARY | 2025-09-26 15:17 | XMS_ITS | Clinical Summary ---
Author Organization [employer] Address [address] [place] [address] Care Team Providers Care Atm Technician Name Role Phone Deandre Riddle RN Unavailable [phone] DavidFideliapamella Unavailable Allergies No known active allergies Medications Multiple [...] unspecified whether stage 3a or 3b CKD ([facility]) USE THREE TIMES DAILY DIRECTED 100 each 11 4 Active FREESTYLE LITE test stripIndications: Type 2 diabetes mellitus with stage 3 chronic kidney disease, with long-term current use of insulin, unspecified whether stage 3a or 3b CKD ([facility]) TEST BLOOD SUGAR THREE TIMES DAILY 100 strip 11 4 Active TRUEplus Lancets 33G miscIndications:D iabetes mellitus, stable ([facility]) TEST BLOOD SUGAR THREE TIMES [...] Once per day. Active Sodium Hypochlorite (Dakins, / strength,) 0.125 % solution WASH WOUND DAILY WITH DAKINS AND COVER WITH DCD DIRECTED 4 Active Active Problems Problem Noted Date Diagnosed Date Acidosis, metabolic, with respiratory acidosis 0 08/01/2025 Acidosis 08/01/2025 Acute CVA (cerebrovascular accident) ([facility]) 0 08/01/2025 Acute hypokalemia 08/01/2025 Acute hypoxemic respiratory failure ([facility]) Amputation of toe of right foot 08/01/2025 Anasarca 08/01/2025 Anemia in chronic kidney disease (CKD) Anemia 08/01/2025 Bacteremia 08/01/2025 Cardiomyopathy 08/01/2025 Callus of foot 08/01/2025 Cellulitis 08/01/2025 Empyema ([facility]) 08/01/2025 Cocaine intoxication ([facility]) 08/01/2025 Confusion 08/01/2025 Constipation 08/01/2025 COPD exacerbation ([facility]) 08/01/2025 Decubitus ulcer 08/01/2025 Dehydration 08/01/2025 Diabetic skin ulcer 08/01/2025 Diabetic ulcer of right foot 08/01/2025 Diabetic wet gangrene of the foot 08/01/2025 Elevated troponin 08/01/2025 End stage renal failure on dialysis ([facility]) Foot osteomyelitis, left ([facility]) 08/01/2025 History of endocarditis 08/01/2025 Hyperglycemia 08/01/2025 Hyperphosphatemia 08/01/2025 Hypocalcemia 08/01/2025 Leukocytosis 08/01/2025 MRSA bacteremia 08/01/2025 Myoclonic disorder 08/01/2025 Necrotic eschar ([facility]) 08/01/2025 Need for acute hemodialysis 08/01/2025 Open wound 08/01/2025 Opiate withdrawal ([facility]) 08/01/2025 Panic attack 08/01/2025 Pericardial effusion 08/01/2025 Pleural effusion, bilateral 08/01/2025 Pseudohyponatremia 08/01/2025 Removal of staple 08/01/2025 Sepsis ([facility]) 08/01/2025 Seizure ([facility]) 08/01/2025 Syncope 08/01/2025 Toxic metabolic encephalopathy 08/01/2025 Volume overload 08/01/2025 Paroxysmal atrial flutter ([facility]) 08/01/2025 Hyperglycemia due to type 2 diabetes mellitus HTN (hypertension) 08/01/2025 Acute renal failure 08/01/2025 Chronic kidney failure 08/01/2025 CKD (chronic kidney disease) stage 3, GFR 30-59 ml/min ([facility]) 08/01/2025 Type 2 diabetes mellitus 08/01/2025 Opioid use disorder, severe, dependence ([facility] ) 08/01/2025 Atrial flutter ([facility]) 10/05/2024 Overview (10/05/2024): -dx in [facility] 09/2024 Primary insomnia 07/14/2023 Assessment & Plan (07/14/2023 10:26 PM EDT): Start trazodone Counseled re tight control of HTN, DM and avoid recreational drug use. FU with PCP Chronic renal disease, stage IV ([facility]) 2022 Overview (06/23/2023): -With significant [...] home is Coronary artery disease invo lving [place] coronary artery of [place] heart without angina pectoris 06/23/2023 Osteomyelitis 06/23/2023 Tobacco dependence 06/23/2023 Overview (06/23/2023): -motivational interviewing done PAD (peripheral artery disease) 06/23/2023 Assessment & Plan (07/14/2023 10:32 PM EDT): Sec to DM, HTN, smoking, cocaine use. 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 Has fu [...] (08/01/2025): -motivational interviewing done Uncomplicated opioid dependence ([facility]) 2022 Polysubstance abuse 06/04/2023 Assessment [...] with his mother) . Right BKA infection ([facility]) 06/04/2023 Overview (06/23/2023): Right foot partal amputation 04/18/2023 due to right foot gangreen with osteomyelitis. Dischargted 05/01/23 with ertapenem via PICC line for osteomyelitis. Returned to [facility] with AMS and underwent right BKA 05/2023 Assessment & Plan (07/14/2023 10:33 PM EDT): Right BKA stump Is healing properly, urged to fu with vascular surgery. Will need PT /OT eval for right leg prosthesis fitting I will rx a transport wheelchair for mobility Altered mental status 06/04/2023 Overview (06/04/2023): Admitted 05/04/23 to [facility] for encephalopathy thought to be cocaine related. he was discharged against medical advice. Seen in [facility] 05/09/23 with repot of myoclonic spasms. Urine drug screen positive for opiates, fentanyl and cocaine.seen 05/11/23 in [facility] for continued abnormal movents and discharged home. Admitted to [facility] 05/12/23-05/14/23 for possible seizure activity. He [...] 4w. Gastroesophageal reflux disease 05/04/2012 Morbid obesity ([facility]) 05/04/2012 Obstructive sleep apnea syndrome [...] 03/30/2021 06/23/2023 Stage 3 chronic kidney disease ([facility]) 03/30/2021 06/23/2023 Encounters Date Type Department Care Team Description 09/26/2025 Orders Only GENERIC EXTERNAL DATA DEPARTMENT Provider, Generic External Data 09/21/2025 Patient Outreach [address] [address] Talya Hernandez Care Coordination ([facility]/W Talya Hernandez, initial outreach attempt_lvm) 09/21/2025 Patient Outreach [address] [address] Talya Hernandez 09/12/2025 Patient Outreach [address] [address] Kyle Mitchell MD Transition Of Care (Tcm) (HDF- Unscheduled ) 09/05/2025 Patient Outreach [address] [address] Talya Hernandez Care Coordination (C3/W Talya Hernandez, Chart review) 09/05/2025 Patient Outreach [facility] [address], [place] [phone] Deandre Riddle, RN Care Coordination (C3- chart review) 09/05/2025 Patient Outreach [address] [address] Kristin Flores, JOVITA 09/04/2025 Orders Only GENERIC EXTERNAL DATA DEPARTMENT Provider, Generic External Data 08/23/2025 Results Follow-Up [address] [address] Cristina Stover MD CBC, Prothrombin Time-INR, Partial Thromboplastin Time, Activated (APTT), Additional followed-up results: 3 08/22/2025 Orders Only GENERIC EXTERNAL DATA DEPARTMENT Provider, Generic External Data 08/02/2025 Telephone [facility] [address] [place] [address] Kadie Guzmán MD No Show 08/01/2025 Telephone [facility] [address] [place] [address] Ivet Zhang MA chart prep 07/29/2025 Telephone [facility] [address] [place] [address] Kyle Mitchell MD 07/27/2025 Refill [facility] [address] [place] [address] Cristina Stover MD Type 2 diabetes mellitus with stage 3 chronic kidney disease, with long-term current use of insulin, unspecified whether stage 3a or 3b CKD ([facility]); Diabetes mellitus, stable (CMS/HCC) 07/25/2025 Refill [facility] [address] [place] [address] Cristina Stover MD Type 2 diabetes mellitus with stage 3 chronic kidney disease, with long-term current use of insulin, unspecified whether stage 3a or 3b CKD ([facility]/HCC) 07/22/2025 Orders Only [facility] External Provider, [facility] from Last 3 Months Immunizations Immunization Administration [...] Tdap) 12/28/2024 12/28/2014 COVID-19 Vaccine ( - 2024- season) 2025 Influenza Vaccine (#1) 2025 , 08/05/2019, 11/12/2018, Additional history exists Tobacco Screening 10/08/2025 10/08/2024 Zoster Vaccines (1 of 2) 2028 RSV [...] on patient's age to complete this topic Goals Goal Patient Goal Type Associated Problems Recent Progress Patient-Stated? Author Help patients manage their type 2 diabetes Care Plan Help patients manage their type 2 diabetes No Talya Hernandez Weekly blood pressure task Care Plan Weekly blood pressure task No Talya Hernandez Help patients manage their type 2 diabetes Care Plan Help patients manage their type 2 diabetes No Talya Hernandez Patient has chronic kidney disease Care Plan Patient has chronic kidney disease No Talya Hernandez Weekly blood pressure task Care Plan Weekly blood pressure task No Talya Hernandez Patient has chronic kidney disease Care Plan Patient has chronic kidney disease No Talya Hernandez Weekly blood pressure task Care Plan Weekly blood pressure task No Talya Hernandez Weekly blood pressure task Care Plan Weekly blood pressure task No Talya Hernandez Patient has chronic kidney disease Care Plan Patient has chronic kidney disease No Talya Hernandez Patient has chronic kidney disease Care Plan Patient has chronic kidney disease No Talya Hernandez Procedures Procedure Name Priority Date/Time Associated Diagnosis Comments DRUG MONITOR, PANEL 1, SCREEN, URINE Routine 09/26/2025 1:11 PM EST XR CHEST 1 VIEW Routine 09/26/2025 12:[address] HEAD WO CONTRAST Routine 09/26/2025 1 1:11 AM EST HIGH SENSITIVITY TROPONIN I Routine 09/26/2025 10:56 AM EST NM WHITE BLOOD SCAN Routine 09/06/2025 1 2:[address] ABDOMEN PELVIS W CONTRAST Routine 09/04/2025 11:[address] HEAD WO CONTRAST Routine 09/04/2025 1 0:[address] CERVICAL SPINE WO CONTRAST Routine 09/04/2025 10:[address] CHEST W CONTRAST Routine 09/04/2025 1 0:42 AM EST XR CHEST 1 VIEW Routine 09/04/2025 9:46 AM EST GLUCOSE, WHOLE BLOOD Routine 09/04/2025 7:59 AM EST GLUCOSE, WHOLE BLOOD Routine 08/22/2025 9:46 AM [...] disease, with long-term current use of insulin ([facility]) ZZZ HISTORICAL MICROALBUMIN, RANDOM Routine 12/13/2019 1:40 PM EST HM HEPATITIS C ANTIBODY Routine 06/22/2019 HM HIV 1/2 ANTIGEN AND ANTIBODY Routine 06/22/2019 from Last 3 Months or Most Recently Relevant to Health Maintenance Results * (ABNORMAL) Drug Monitoring, Panel 1, Screen, Urine (09/26/2025 1:11 PM EST) Only the most recent of2 resultswithin the time period is included. Opiate Screen Urine POSITIVE(A) Not Detect [facility] Comment:Opiate cut-off is 30 0 ng/mL.Positive results are unconfirmed and should not be used fornon-medical purposes. Barbiturates, Urine Not Detected Not Detect [facility] Comment:Barbiturate cut-off is 200 ng/mL.Positive results are unconfirmed and should not be used fornon-medical purposes. Phencyclidine Screen Urine Not Detected Not Detect [facility] Comment:Phencyclidine cut-of f is 25 ng/mL.Positive results are unconfirmed and should not be used fornon-medical purposes. Amphetamine Screen Urine Not Detected Not Detect [facility] Comment:Amphetamine cut-off is 1000 ng/mL.Positive results are unconfirmed and should not be used fornon-medical purposes. Benzodiazepines Screen Urine Not Detected Not Detect [facility] Comment:Benzodiazepine cut-o ff is 200 ng/mL.Positive results are unconfirmed and should not be used fornon-medical purposes. Cocaine Screen Urine POSITIVE(A) Not Detect [facility] Comment:Cocaine cut-off is 3 00 ng/mL.Positive results are unconfirmed and should not be used fornon-medical purposes. Cannabinoid Screen Urine Not Detected Not Detect [facility] Comment:Cannabinoid cut-off is 50 ng/mL.Positive results are unconfirmed and should not be used fornon-medical purposes. Methadone Screen, Urine Not Detected Not Detect ng/mL [facility] Comment:Methadone cut-off is 300 ng/mL.Positive results are unconfirmed and should not be used fornon-medical purposes. FENTANYL URINE POSITIVE(A) Not Detect [facility] Comment:Fentanyl cut-off is 1 ng/mL.Positive results are unconfirmed and should not be used fornon-medical purposes. Oxycodone Urine Screen Not Detected Not Detect ng/mL [facility] Comment:Oxycodone cut-off is 100 ng/mL.Positive results are unconfirmed and should not be used fornon-medical purposes. Buprenorphine Screen Not Detected Not Detect ng/mL [facility] Comment:Buprenorphine cut-of f is 5 ng/mL.Positive results are unconfirmed and should not be used fornon-medical purposes. 09/26/2025 1:11 PM EST 09/26/2025 1:15 PM EST us Generic External Data Provider LAB URINE ORDERAB LES Final Result Performing Organization Address City/State/[facility] Co de Phone Number [facility] [address] [place] [phone] * XR Chest 1 View (09/26/2025 12:25 PM EST) Only the most recent of2 resultswithin the time period is included. Anatomical Region Laterality Modality Chest Radiographic Hilda ging 09/26/2025 12:2 5 PM EST Narrative 09/26/2025 12:49 PM EST [address] [address] XRay Report Signed Patient: Deandre Luong MR#: [id number] 3 : 1980 Acct:[id number] Age/Sex: 45 / M ADM Date: 09/26/25 Loc: HO.ED Attending Dr: Ordering Physician: Jose Samuel MD Date of Service: 09/26/25 Procedure(s): XR chest 1V Accession Number(s): [id number] cc: Jose Samuel MD; [facility] Reason for Exam: SOB EXAMINATION: XR CHEST CLINICAL INFORMATION: SOB COMPARISON: None available. TECHNIQUE: Frontal view of the chest was obtained. FINDINGS: Prominent central bronchovascular markings. Question Iona B lines at the left lung base. Some of these lines extend outside the ribs and this may be related to something overlying the patient or on the patient's clothing. Findings are questionable for mild pulmonary edema. Differential would include airways disease. No consolidation. No pleural effusion or pneumothorax. Slightly prominent cardiac silhouette similar to prior exam. Right jugular permacath with tip projecting over the cavoatrial junction. Bony structures are unremarkable. XR/XR chest 1V IMPRESSION: Increased central bronchovascular markings and question Iona B lines at the left lung base. This may represent mild pulmonary edema. Differential would include airways disease. Electronically signed by: Rosalee Hernandez MD 09/26/2025 12:46 PM [facility] Dictated By: Rosalee Hernandez MD Signed By: <Electronically signed by Rosalee Hernandez MD in OV> 09/26/25 1246 DD/ 1225 TD/TT: 09/26/25 1229 Chef & Owner: [place] Procedure Note Donotuseinterpreter, Image - 09/26/2025 [place] [address] XRay Report Signed Patient: Deandre Luong [facility]#: [id number] 3 : 1980Acct:[id number] Age/Sex: 45 / MADM Date: 09/26/25 Loc: HO.ED Attending Dr: Ordering Physician: Jose Samuel MD Date of Service: 09/26/25 Procedure(s): XR chest 1V Accession Number(s): [id number] cc: Jose Samuel MD; [facility] Reason for Exam: SOB EXAMINATION: XR CHEST CLINICAL INFORMATION: SOB COMPARISON: None available. TECHNIQUE: Frontal view of the chest was obtained. FINDINGS: Prominent central bronchovascular markings. Question Iona B lines at the left lung base. Some of these lines extend outside the ribs and this may be related to something overlying the patient or on the patient's clothing. Findings are questionable for mild pulmonary edema. Differential would include airways disease. No consolidation. No pleural effusion or pneumothorax. Slightly prominent cardiac silhouette similar to prior exam. Right jugular permacath with tip projecting over the cavoatrial junction. Bony structures are unremarkable. XR/XR chest 1V IMPRESSION: Increased central bronchovascular markings and question Iona B lines at the left lung base. This may represent mild pulmonary edema. Differential would include airways disease. Electronically signed by: Rosalee Hernandez MD 09/26/2025 12:46 PM EST RP Dictated By: Rosalee Hernandez MD Signed By: <Electronically signed by Rosalee Hernandez MD in OV> 09/26/25 1246 DD/ 1225 TD/TT: 09/26/25 1229 Chef & Owner: [place] [facility] External Provider IMG XR PROCEDURES Final Result * CT Head w/o Contrast (09/26/2025 11:11 AM EST) Only the most recent of2 resultswithin the time period is included. Anatomical Region Laterality Modality Head, Neck Computed Tomogra phy 09/26/2025 11:1 1 AM EST Narrative 09/26/2025 11:36 AM EST [place] [address] CT Scan Report Signed Patient: Deandre Luong MR#: [id number] 3 : 1980 Acct:[id number] Age/Sex: 45 / M ADM Date: 09/26/25 Loc: HO.ED Attending Dr: Ordering Physician: Jose Samuel MD Date of Service: 09/26/25 Procedure(s): CT head/brain wo IV con Accession Number(s): [id number] cc: Jose Samuel MD; [facility] Report Number: [id number]: Total DLP = 839.00 mGy-cm Reason for Exam: mental status changes EXAMINATION: CT HEAD WITHOUT CONTRAST CLINICAL INFORMATION: Mental status changes. COMPARISON: 09/04/2025. 05/11/2023. TECHNIQUE: Contiguous axial imaging was performed from the skull base to vertex without intravenous administration of contrast. This CT examination was performed using dose optimization techniques as appropriate, variously including the following: *Automated exposure control *Adjustment of mA and/or kV according to patient size (this includes techniques or standardized protocols for targeted exams where dose is matched to indication/reason for exam; i.e. extremities or head) *Use of iterative reconstruction technique FINDINGS: There is no evidence of intracranial hemorrhage or extra-axial fluid collection. There is no mass effect, or edema. No CT evidence of acute territorial infarct. Ventricles, sulci, and cisterns are normal in size and configuration for patient age. No hydrocephalus. No midline shift. Negative hyperdense MCA sign. Negative insular ribbon sign. No significant white matter attenuation abnormalities. Normal pituitary. Mild atheromatous calcification of the bilateral carotid siphons and V4 segments vertebral arteries bilaterally. Globes and orbital contents image normally. Extracranial soft tissues demonstrate a small residual low occipital scalp hematoma, decreased from prior. The paranasal sinuses, mastoid air cells, and tympanic cavities are normally aerated. No suspicious bony abnormalities. There are no acute fractures evident. CT/CT head/brain wo IV con IMPRESSION: 1. No acute intracranial abnormality. 2. Small residual low occipital scalp hematoma, improving. Electronically signed by: Jorge Luis Soto MD 09/26/2025 11:33 AM [facility] Dictated By: Jorge Luis Soto MD Signed By: <Electronically signed by Jorge Luis Soto MD in OV> 09/26/25 1133 DD/ 1111 TD/TT: 09/26/25 1119 Chef & Owner: Procedure Note Donotuseinterpreter, Image - 09/26/[address] [address] [address] Scan Report Signed Patient: Deandre Luong [facility]#: [id number] 3 : 1980Acct:[id number] Age/Sex: 45 / MADM Date: 09/26/25 Loc: HO.ED Attending Dr: Ordering Physician: Jose Samuel MD Date of Service: 09/26/25 Procedure(s): CT head/brain wo IV con Accession Number(s): [id number] cc: Jose Samuel MD; [facility] Report Number: [id number]: Total DLP = 839.00 mGy-cm Reason for Exam: mental status changes EXAMINATION: CT HEAD WITHOUT CONTRAST CLINICAL INFORMATION: Mental status changes. COMPARISON: 09/04/2025. 05/11/2023. TECHNIQUE: Contiguous axial imaging was performed from the skull base to vertex without intravenous administration of contrast. This CT examination was performed using dose optimization techniques as appropriate, variously including the following: *Automated exposure control *Adjustment of mA and/or kV according to patient size (this includes techniques or standardized protocols for targeted exams where dose is matched to indication/reason for exam; i.e. extremities or head) *Use of iterative reconstruction technique FINDINGS: There is no evidence of intracranial hemorrhage or extra-axial fluid collection. There is no mass effect, or edema. No CT evidence of acute territorial infarct. Ventricles, sulci, and cisterns are normal in size and configuration for patient age. No hydrocephalus. No midline shift. Negative hyperdense MCA sign. Negative insular ribbon sign. No significant white matter attenuation abnormalities. Normal pituitary. Mild atheromatous calcification of the bilateral carotid siphons and V4 segments vertebral arteries bilaterally. Globes and orbital contents image normally. Extracranial soft tissues demonstrate a small residual low occipital scalp hematoma, decreased from prior. The paranasal sinuses, mastoid air cells, and tympanic cavities are normally aerated. No suspicious bony abnormalities. There are no acute fractures evident. CT/CT head/brain wo IV con IMPRESSION: 1. No acute intracranial abnormality. 2. Small residual low occipital scalp hematoma, improving. Electronically signed by: Jorge Luis Soto MD 09/26/2025 11:33 AM [facility] Dictated By: Jorge Luis Soto MD Signed By: <Electronically signed by Jorge Luis Soto MD in OV> 09/26/25 1133 DD/ 1111 TD/TT: 09/26/25 1119 Chef & Owner: [facility] External Provider IMG CT PROCEDURES Final Result * (ABNORMAL) High Sensitivity Troponin I (09/26/2025 10:56 AM EST) TROPONIN I HIGH SENSITIVITY 899.0(HH) <3.5 - 35.0 ng/L [facility] Comment:Critical value for t est(s): TROP Results called to and readback by: HAZEL Person calling: ABDIFATAH Date: 09.26.25Time: 1303The Roe high sensitivity Troponin-I results should beused in conjunction with other diagnostic information suchas ECG, clinical observations and information, and patientsymptoms to aid in the diagnosis of [place]. 09/26/2025 10:5 6 AM EST 09/26/2025 12:28 PM EST us Generic External Data Provider LAB BLOOD ORDERAB LES Final Result Performing Organization Address City/State/[facility] Co de Phone Number [facility] [address] [place] [phone] * NM white blood scan (09/06/2025 12:32 PM EST) Anatomical Region Laterality Modality Nuclear Medicine 09/06/2025 12:3 2 PM EST Narrative 09/07/2025 10:36 AM EST [address] [address] Nuclear Medicine Report Signed Patient: Deandre Luong MR#: [id number] 3 : 1980 Acct:[id number] Age/Sex: 45 / M ADM Date: 09/04/25 Loc: [facility] 253-[address]: Ken Melendez MD Ordering Physician: Ken Melendez MD Date of Service: 09/06/25 Procedure(s): [place] white blood scan Accession Number(s): [id number] cc: Cristina Stover MD; Ken Melendez MD Reason for Exam: suspicion for cervical osteomyelitis EXAMINATION: NM RADIONUCLIDE WHITE BLOOD CELL STUDY WITH SPECT. CLINICAL INFORMATION: Suspicion for cervical osteomyelitis. CT questioned C5-C6, C6-7 and C7-T1 discitis/osteomyelitis. COMPARISON: CT cervical spine 09/04/2025. TECHNIQUE: Following intravenous and its fixation of 11 mCi of tagged white blood cells, imaging and perfusion study of cervical spine and delayed statics of the whole body and the cervical spine were obtained. In addition SPECT study of the cervical spine were obtained with color fusion images were performed on a separate workstation and available for interpretation. FINDINGS: Cervical spine: There is degenerative disc changes with ventral and posterior spondylosis C5-6, C6-C7 and C7-T1 disc levels. There is no isotope activity seen in these disc levels or at C5 and C6 vertebra for suspected discitis osteomyelitis. Normal bone marrow activity seen in the rest of the cervical spine on SPECT study. Similar findings are seen on static images. On whole body black and white imaging there is an below-knee right amputation. Minimal focal activity seen at this amputation skin site likely reactionary changes but no suspicion for osteomyelitis. No abnormal activity seen in chest, abdomen or pelvis. No bone marrow activity seen either in the whole body scan. Normal activity seen in the liver and spleen. No abnormal activity seen in the upper or lower extremities. NM/NM white blood scan IMPRESSION: No abnormal perfusion, static and delayed images seen in the cervical spine especially at the C5-6, C6-C7 disc levels. There is no abnormal isotope activity seen at the C6 or C7 vertebra to suspect osteomyelitis. 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 Whole body white blood cell Ceretec scan is is unremarkable. Electronically signed by: Tobias Barnett MD 09/07/2025 10:33 AM [facility] Dictated By: Tobias Barnett MD Signed By: <Electronically signed by Tobias Barnett MD in OV> 09/07/25 1033 DD/ 1232 TD/TT: 09/06/25 1700 Chef & Owner: [facility] [place] Procedure Note Donotuseinterpreter, Image - 09/07/[address] [address] Nuclear Medicine Report Signed Patient: Deandre Luong [facility]#: [id number] 3 : 1980Acct:[id number] Age/Sex: 45 / MADM Date: 09/04/25 Loc: .ICU 253-[address]: Ken Melendez MD Ordering Physician: Ken Melendez MD Date of Service: 09/06/25 Procedure(s): [place] white blood scan Accession Number(s): [id number] cc: Cristina Stover MD; Ken Melendez MD Reason for Exam: suspicion for cervical osteomyelitis EXAMINATION: [place] RADIONUCLIDE WHITE BLOOD CELL STUDY WITH SPECT. CLINICAL INFORMATION: Suspicion for cervical osteomyelitis. CT questioned C5-C6, C6-7 and C7-T1 discitis/osteomyelitis. COMPARISON: CT cervical spine 09/04/2025. TECHNIQUE: Following intravenous and its fixation of 11 mCi of tagged white blood cells, imaging and perfusion study of cervical spine and delayed statics of the whole body and the cervical spine were obtained. In addition SPECT study of the cervical spine were obtained with color fusion images were performed on a separate workstation and available for interpretation. FINDINGS: Cervical spine: There is degenerative disc changes with ventral and posterior spondylosis C5-6, C6-C7 and C7-T1 disc levels. There is no isotope activity seen in these disc levels or at C5 and C6 vertebra for suspected discitis osteomyelitis. Normal bone marrow activity seen in the rest of the cervical spine on SPECT study. Similar findings are seen on static images. On whole body black and white imaging there is an below-knee right amputation. Minimal focal activity seen at this amputation skin site likely reactionary changes but no suspicion for osteomyelitis. No abnormal activity seen in chest, abdomen or pelvis. No bone marrow activity seen either in the whole body scan. Normal activity seen in the liver and spleen. No abnormal activity seen in the upper or lower extremities. [place] white blood scan IMPRESSION: No abnormal perfusion, static and delayed images seen in the cervical spine especially at the C5-6, C6-C7 disc levels. There is no abnormal isotope activity seen at the C6 or C7 vertebra to suspect osteomyelitis. 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 Whole body white blood cell Ceretec scan is is unremarkable. Electronically signed by: Tobias Barnett MD 09/07/2025 10:33 AM EST Dictated By: Tobias Barnett MD Signed By: <Electronically signed by Tobisa Barnett MD in OV> 09/07/25 1033 DD/ 1232 TD/TT: 09/06/25 1700 Chef & Owner: [employer] [facility] External Provider IMG NM PROCEDURES Final Result * CT Abdomen Pelvis w/ Contrast (09/04/2025 11:09 AM EST) Anatomical Region Laterality Modality Body, Pelvis, Abdomen Computed T omography 09/04/2025 11:0 9 AM EST Narrative 09/04/2025 11:11 AM EST [address] [address] [address] Scan Report Signed Patient: Deandre Luong MR#: [id number] 3 : 1980 Acct:[id number] Age/Sex: 45 / M ADM Date: 09/04/25 Loc: .ICU 253-[address]: Shanelle Iverson MD Ordering Physician: Ame Bragg MD Date of Service: 09/04/25 Procedure(s): CT abdomen pelvis w IV con Accession Number(s): [id number] cc: Cristina Stover MD; Ame Bragg MD Report Number: [id number]: Total DLP = 1207.00 mGy-cm Reason for Exam: fall agitated esrd CLINICAL HISTORY: fall agitated esrd CT abdomen and pelvis with contrast Comparison: CT/REG/SR - CT CHEST W IV CON - 09/04/25 09:[address]/SR - CT PELVIS WO IV CON - 11/05/24 12:16 EST Findings: Redemonstrated patchy consolidations at the dependent lung bases. Liver and gallbladder within normal limits. Spleen is mildly enlarged measuring up to 13.7 cm. No splenic lesions. Pancreas and bilateral adrenal glands are within normal limits. Bilateral renal cysts are present most of which are less than 1 cm. No renal stones are present. No abdominal free fluid. Multiple borderline enlarged retroperitoneal nodes measuring up to 1.5 cm in the left para-aortic level (series 37, image 328). Aorta is nonaneurysmal and contains moderate atherosclerotic calcifications throughout. Nasogastric tube terminates in the stomach. No bowel obstruction, pneumoperitoneum, or pneumatosis. Moderate stool burden. Appendix is normal. Bladder is distended without wall thickening. Prostate is mildly enlarged. Degenerative changes of the bilateral hips and lumbar spine. No acute osseous lesions. Bilateral inguinal lymphadenopathy measuring up to 2.6 cm in the groin. IMPRESSION: 1. No acute intra-abdominal or pelvic abnormalities. 2. Nonspecific and likely chronic findings including bilateral inguinal lymphadenopathy measuring up to 2.6 cm in the left groin, in addition to multiple borderline enlarged retroperitoneal nodes measuring up to 1.5 cm in the left periaortic region. This document has been electronically signed by: Elia Singh MD on 09/04/2025 11:09:49 Dictated By: Elia Singh MD Signed By: <Electronically signed by Elia Singh MD in OV> 09/04/25 1111 DD/ 1109 TD/TT: 09/04/25 1109 Chef & Owner: Procedure Note Donotuseinterpreter, Image - 09/04/[address] [place] [address] [address] Scan Report Signed Patient: Deandre Luong [facility]#: [id number] 3 : 1980Acct:[id number] Age/Sex: 45 / MADM Date: 09/04/25 Loc: [facility] 253-[address]: Shanelle Iverson MD Ordering Physician: Ame Bragg MD Date of Service: 09/04/25 Procedure(s): CT abdomen pelvis w IV con Accession Number(s): [id number] cc: Cristina Stover MD; Ame Bragg MD Report Number: [id number]: Total DLP = 1207.00 mGy-cm Reason for Exam: fall agitated esrd CLINICAL HISTORY: fall agitated esrd CT abdomen and pelvis with contrast Comparison: CT/REG/SR - CT CHEST W IV CON - 09/04/25 09:[address]/SR - CT PELVIS WO IV CON - 11/05/24 12:16 EST Findings: Redemonstrated patchy consolidations at the dependent lung bases. Liver and gallbladder within normal limits. Spleen is mildly enlarged measuring up to 13.7 cm. No splenic lesions. Pancreas and bilateral adrenal glands are within normal limits. Bilateral renal cysts are present most of which are less than 1 cm. No renal stones are present. No abdominal free fluid. Multiple borderline enlarged retroperitoneal nodes measuring up to 1.5 cm in the left para-aortic level (series 37, image 328). Aorta is nonaneurysmal and contains moderate atherosclerotic calcifications throughout. Nasogastric tube terminates in the stomach. No bowel obstruction, pneumoperitoneum, or pneumatosis. Moderate stool burden. Appendix is normal. Bladder is distended without wall thickening. Prostate is mildly enlarged. Degenerative changes of the bilateral hips and lumbar spine. No acute osseous lesions. Bilateral inguinal lymphadenopathy measuring up to 2.6 cm in the groin. IMPRESSION: 1. No acute intra-abdominal or pelvic abnormalities. 2. Nonspecific and likely chronic findings including bilateral inguinal lymphadenopathy measuring up to 2.6 cm in the left groin, in addition to multiple borderline enlarged retroperitoneal nodes measuring up to 1.5 cm in the left periaortic region. This document has been electronically signed by: Elia Singh MD on 09/04/2025 11:09:49 Dictated By: Elia Singh MD Signed By: <Electronically signed by Elia Singh MD in OV> 09/04/25 1111 DD/ 1109 TD/TT: 09/04/25 1109 Chef & Owner: [facility] External Provider IMG CT PROCEDURES Edited Result - Final * CT Cervical Spine w/o Contrast (09/04/2025 10:52 AM EST) Anatomical Region Laterality Modality Spine, C-spine Computed Tomogra phy 09/04/2025 10:5 2 AM EST Narrative 09/04/2025 10:53 AM EST [address] [address] [address] Scan Report Signed with Ruiz Patient: Deandre Luong MR#: [id number] 3 : 1980 Acct:[id number] Age/Sex: 45 / M ADM Date: 09/04/25 Loc: HO.ICU 253-[address]: Shanelle Iverson MD Ordering Physician: Ame Bragg MD Date of Service: 09/04/25 Procedure(s): CT cervical spine wo IV con Accession Number(s): [id number] cc: Cristina Stover MD; Ame Bragg MD Report Number: [id number]: Total DLP = 490.00 mGy-cm Reason for Exam: fall ADDENDUM This document has been electronically signed by: Elia Singh MD on 09/04/2025 10:52:24 ADDENDUM: This report was discussed with Yemi Briseno on Sep 04, 2025 11:00:00 EST. This document has been electronically signed by: Mayuri Amor on 09/04/2025 11:00:37 Addendum Dictated By: Elia Singh MD Addendum Signed By: <Electronically signed by Elia Singh MD in OV> 09/04/25 1101 Addendum Cosigned By: DD/ /28/1051 TD/TT: 09/04/2512/28/1099 CLINICAL HISTORY: fall CT cervical spine without contrast Comparison: CT/REG/SR - CT HEAD NECK ANGIOGRAPHY WITH IV CONTRAST STROKE - 05/05/23 21:23 EDT Findings: Severe degenerative changes are demonstrated about the cervical spine from the level of C5-C6 through C7-T1 with vertebral body and intervertebral disc height loss with erosion of the endplates at C5-C6 C6-C7 and C7-T1. Findings about C6-C7 with sclerosis and irregular endplate features raise possibility for osteomyelitis discitis. No acute fractures or dislocations. No acute findings on limited view of the intracranial contents. No cervical fluid collections or masses. Biapical lung scarring. IMPRESSION: 1. Severe degenerative changes of the cervical spine from C5-C6 through C7-T1 with intervertebral disc height loss and erosion of the endplates though at C6-C7 sclerosis and irregular endplate features raise possibility of osteomyelitis/discitis and clinical correlation is recommended. 2. No traumatic cervical spine injury identified. This document has been electronically signed by: Elia Singh MD on 09/04/2025 10:52:24 Dictated By: Elia Singh MD Signed By: <Electronically signed by Elia Singh MD in OV> 09/04/25 105 DD/ 105 TD/TT: 09/04/25 105 Chef & Owner: Procedure Note Donotuseinterpreter, Image - 09/04/[address] [address] [address] Scan Report Signed with Addenda Patient: Deandre Luong [facility]#: [id number] 3 : 1980Acct:[id number] Age/Sex: 45 / MADM Date: 09/04/25 Loc: HO.ICU 253-[address]: Shanelle Iverson MD Ordering Physician: Ame Bragg MD Date of Service: 09/04/25 Procedure(s): CT cervical spine wo IV con Accession Number(s): [id number] cc: Cristina Stover MD; Ame Bragg MD Report Number: [id number]: Total DLP = 490.00 mGy-cm Reason for Exam: fall ADDENDUM This document has been electronically signed by: Elia Singh MD on 09/04/2025 10:52:24 ADDENDUM: This report was discussed with Yemi Briseno on Sep 04, 2025 11:00:00 EST. This document has been electronically signed by: Mayuri Amor on 09/04/2025 11:00:37 Addendum Dictated By: Elia Singh MD Addendum Signed By: <Electronically signed by Elia Singh MD in OV> 09/04/25 1101 Addendum Cosigned By: DD/ /28/1051 TD/TT: 09/04/2512/28/1099 CLINICAL HISTORY: fall CT cervical spine without contrast Comparison: CT/REG/SR - CT HEAD NECK ANGIOGRAPHY WITH IV CONTRAST STROKE - 05/05/23 21:23 EDT Findings: Severe degenerative changes are demonstrated about the cervical spine from the level of C5-C6 through C7-T1 with vertebral body and intervertebral disc height loss with erosion of the endplates at C5-C6 C6-C7 and C7-T1. Findings about C6-C7 with sclerosis and irregular endplate features raise possibility for osteomyelitis discitis. No acute fractures or dislocations. No acute findings on limited view of the intracranial contents. No cervical fluid collections or masses. Biapical lung scarring. IMPRESSION: 1. Severe degenerative changes of the cervical spine from C5-C6 through C7-T1 with intervertebral disc height loss and erosion of the endplates though at C6-C7 sclerosis and irregular endplate features raise possibility of osteomyelitis/discitis and clinical correlation is recommended. 2. No traumatic cervical spine injury identified. This document has been electronically signed by: Elia Singh MD on 09/04/2025 10:52:24 Dictated By: Elia Singh MD Signed By: <Electronically signed by Elia Singh MD in OV> 09/04/25 1053 DD/ 1052 TD/TT: 09/04/25 1052 Chef & Owner: [facility] External Provider IMG CT PROCEDURES Edited Result - Final * CT Chest w/ Contrast (09/04/2025 10:42 AM EST) Anatomical Region Laterality Modality Body, Chest Computed Tomogra phy 09/04/2025 10:4 2 AM EST Narrative 09/04/2025 10:43 AM EST [place] [address] CT Scan Report Signed Patient: Deandre Luong MR#: [id number] 3 : 1980 Acct:[id number] Age/Sex: 45 / M ADM Date: 09/04/25 Loc: [facility] 253-[address]: Shanelle Iverson MD Ordering Physician: Ame Bragg MD Date of Service: 09/04/25 Procedure(s): CT chest w IV con Accession Number(s): [id number] cc: Cristina Stover MD; Ame Bragg MD Report Number: [id number]: Total DLP = 448.00 mGy-cm Reason for Exam: History of pericardial effusion history of polysub CLINICAL HISTORY: History of pericardial effusion history of polysub CT chest with contrast Comparison: CR - XR CHEST 1V - 09/04/25 08:[address]/SR - CT ABDOMEN PELVIS WO IV CON - 08/29/24 15:18 EDT Findings: ET tube terminates in the trachea. Central venous catheter terminates in the right atrium. The heart size is normal. No pericardial effusion. Coronary artery calcifications. Thoracic aorta is nonaneurysmal. Great vessels are unremarkable. The thyroid and mediastinum are unremarkable. Patchy bilateral lower lobe dependent consolidations. No pleural effusion. The visualized upper abdomen is unremarkable. No acute osseous abnormality. IMPRESSION: 1. Bilateral lower lobe patchy consolidations with dependent positioning, possible aspiration etiology. 2. No pericardial effusion. This document has been electronically signed by: Elia Singh MD on 09/04/2025 10:42:29 Dictated By: Elia Singh MD Signed By: <Electronically signed by Elia Singh MD in OV> 09/04/25 1043 DD/ 1042 TD/TT: 09/04/25 1042 Chef & Owner: Procedure Note Donotuseinterpreter, Image - 09/04/[address] [place] [address] [address] Scan Report Signed Patient: Deandre Luong [facility]#: [id number] 3 : 1980Acct:[id number] Age/Sex: 45 / MADM Date: 09/04/25 Loc: .ICU 253-[address]: Shanelle Iverson MD Ordering Physician: Ame Bragg MD Date of Service: 09/04/25 Procedure(s): CT chest w IV con Accession Number(s): [id number] cc: Cristina Stover MD; Ame Bragg MD Report Number: [id number]: Total DLP = 448.00 mGy-cm Reason for Exam: History of pericardial effusion history of polysub CLINICAL HISTORY: History of pericardial effusion history of polysub CT chest with contrast Comparison: CR - XR CHEST 1V - 09/04/25 08:[address]/SR - CT ABDOMEN PELVIS WO IV CON - 08/29/24 15:18 EDT Findings: ET tube terminates in the trachea. Central venous catheter terminates in the right atrium. The heart size is normal. No pericardial effusion. Coronary artery calcifications. Thoracic aorta is nonaneurysmal. Great vessels are unremarkable. The thyroid and mediastinum are unremarkable. Patchy bilateral lower lobe dependent consolidations. No pleural effusion. The visualized upper abdomen is unremarkable. No acute osseous abnormality. IMPRESSION: 1. Bilateral lower lobe patchy consolidations with dependent positioning, possible aspiration etiology. 2. No pericardial effusion. This document has been electronically signed by: Elia Singh MD on 09/04/2025 10:42:29 Dictated By: lEia Singh MD Signed By: <Electronically signed by Elia Singh MD in OV> 09/04/25 1043 DD/ 1042 TD/TT: 09/04/25 1042 Chef & Owner: [facility] External Provider IMG CT PROCEDURES Edited Result - Final * Glucose, Whole Blood (09/04/2025 7:59 AM EST) Only the most recent of2 resultswithin the time period is included. Glucose, Whole Blood 98 60 - 115 mg/dL [facility] Comment:METER #: [id number] 09/04/2025 7:59 AM EST 09/04/2025 9:09 AM EST Generic External Data Provider LAB BLOOD ORDERAB LES Final Result Performing Organization Address City/[facility]/ZIP Co de Phone Number [facility] [address] [place] [phone] * (ABNORMAL) Partial Thromboplastin Time, Activated (APTT) (08/22/2025 9:22 AM EDT) Partial Thromboplastin Time 43.5(H) 26.7 - 34.1 SEC [facility] 08/22/2025 9:22 AM EDT 08/22/2025 9:25 AM EDT Generic External Data Provider LAB BLOOD ORDERAB LES Final Result Performing Organization Address City/[facility]/ZIP Co de Phone Number [facility] [address] [place] [phone] * Prothrombin Time-INR (08/22/2025 9:22 AM EDT) Prothrombin Time 11.9 10.9 - 12.4 SEC [facility] INTERNATIONAL NORM RATIO 1.0 0.9 - 1.1 [facility] Comment:INTERNATIONAL NORMAL IZED RATIO (INR) [...] Provider LAB BLOOD ORDERAB LES Final Result [facility] [address] [place] [phone] * (ABNORMAL) CBC (08/22/2025 9:22 AM EDT) White Blood Count 6.8 4.8 - 10.8 X10*3/uL [facility] Red Blood Count 4.03(L) 4.60 - 5.80 X10*6/uL [facility] Hemoglobin 11.3(L) 14.0 - 18.0 g/dl [facility] Hematocrit 36.4(L) 42.0 - 52.0 % [facility] Mean Corpuscular Volume 90.3 80.0 - 98.0 fL [facility] Mean Corpuscular Hemoglobin 28.0 27.0 - 33.0 pg [facility] Mean Corpuscular HGB Conc 31.0 31.0 - 36.0 g/dl [facility] Red Cell Distribution Width 14.2 11.0 - 16.0 % [facility] Platelet Count 172 160 - 400 X10*3/uL [facility] Mean Platelet Volume 10.5 9.4 - 12.4 fL [facility] NRBC Pct Auto 0.0 0.0 - 0.2 /100WBC [facility] NRBC Abs Auto 0.000 0.0 - 0.012 X10*3/uL [facility] 08/22/2025 9:22 AM EDT 08/22/2025 9:25 AM EDT us Generic External Data Provider LAB BLOOD ORDERAB LES Final Result Performing Organization Address City/[facility]/ZIP Co de Phone Number [facility] [address] [place] [phone] * (ABNORMAL) Basic Metabolic Panel (08/22/2025 9:22 AM EDT) Sodium 135 135 - 145 mmol/L [facility] Potassium 4.1 3.3 - 5.1 mmol/L [facility] Chloride 98 96 - 108 mmol/L [facility] Carbon Dioxide 30(H) 22 - 29 mmol/L [facility] Anion Gap 11(L) 12 - 20 [facility] Urea Nitrogen (BUN) 22(H) 9 - 16 mg/dL [facility] Creatinine, Serum 4.47(HH) 0.5 - 1.4 mg/dL [facility] Comment:Critical value for C REAT: Results called to and read backby: AMIRAH Person calling: KEVIN Date: 08/22/25 Time:0948 Creatinine Clr Calc Pharmacy TNP [facility] Comment:Unable to calculate eCrCL; all parameters not provided. Estimated Glomerular Filt Rate 14 [facility] Comment:Chronic Kidney Disea se: Estimated GFR < 60 mL/min/[id number] Kidney Disease: Estimated GFR < 15 mL/min/1.73m2 Glucose 161(H) 60 - 115 mg/dL [facility] Calcium 8.1(L) 8.4 - 10.2 mg/dL [facility] 08/22/2025 9:22 AM EDT 08/22/2025 9:25 AM EDT us Generic External Data Provider LAB BLOOD ORDERAB LES Final Result [facility] [address] [place] [phone] * Blood Culture (First) (07/22/2025 1:45 PM EDT) Blood Venous blood specimen / Unknown 07/22/2025 1:45 PM EDT 07/22/2025 1:50 PM EDT Comment:Blood Narrative [facility] - 07/27/2025 3:50 PM EDT Blood Culture (First) No growth after 5 days. Specimen Source: Blood us Generic External Data Provider LAB MICROBIOLOGY - GENERAL ORDERABLES Final Result [facility] [address] [place] [phone] * (ABNORMAL) CBC auto differential (07/22/2025 1:45 PM EDT) White Blood Count 8.9 4.8 - 10.8 X10*3/uL [facility] Red Blood Count 3.78(L) 4.60 - 5.80 X10*6/uL [facility] Hemoglobin 11.1(L) 14.0 - 18.0 g/dl [facility] Hematocrit 34.2(L) 42.0 - 52.0 % [facility] Mean Corpuscular Volume 90.5 80.0 - 98.0 fL [facility] Mean Corpuscular Hemoglobin 29.4 27.0 - 33.0 pg [facility] Mean Corpuscular HGB Conc 32.5 31.0 - 36.0 g/dl [facility] Red Cell Distribution Width 13.4 11.0 - 16.0 % [facility] Platelet Count 255 160 - 400 X10*3/uL [facility] Mean Platelet Volume 10.5 9.4 - 12.4 fL [facility] Neutrophils Percent Auto 74.4(H) 45 - 73 % [facility] Imm Gran Pct Auto 0.3 0.0 - 0.4 % [facility] Lymphocytes Percent Auto 16.4(L) 20 - 40 % [facility] Monocytes Percent Auto 6.6 2 - 11 % [facility] Eosinophils Percent Auto 2.0 0 - 4 % [facility] Basophils Percent Auto 0.3 0 - 2 % [facility] NRBC Pct Auto 0.0 0.0 - 0.2 /100WBC [facility] Neutrophils Absolute Auto 6.6 2.0 - 8.3 x10*3/uL [facility] Imm Gran Abs Auto 0.03 0.00 - 0.03 X10*3/uL [facility] Lymphocytes Absolute Auto 1.5 1.2 - 4.9 X10*3/uL [facility] Monocytes Absolute Auto 0.6 0.1 - 1.2 X10*3/uL [facility] Eosinophils Absolute Auto 0.2 0.0 - 0.4 X10*3/uL [facility] Basophils Absolute Auto 0.0 0.0 - 0.2 X10*3/uL [facility] NRBC Abs Auto 0.000 0.0 - 0.012 X10*3/uL [facility] 07/22/2025 1:45 PM EDT 07/22/2025 1:50 PM EDT us Generic External Data Provider LAB BLOOD ORDERAB LES Final Result [facility] [address] [place] [phone] * (ABNORMAL) Sed Rate by Modified Luisren (07/22/2025 1:45 PM EDT) Erythrocyte Sedimentation Rate 88(H) 0 - 15 MM/HR [facility] Comment:Patients with polycy themia and many hemoglobin abnormalitiesmay have depressed sed rates whereas patients with anemiamay have elevated sed rates. 07/22/2025 1:45 PM EDT 07/22/2025 1:50 PM EDT us Generic External Data Provider LAB BLOOD ORDERAB LES Final Result Performing Organization Address City/[facility]/ZIP Co de Phone Number [facility] [address] [place] [address] [phone] * (ABNORMAL) C-reactive Protein (07/22/2025 1:45 PM EDT) C Reactive Protein 12.29(H) < or = 0.50 mg/dL [facility] 07/22/2025 1:45 PM EDT 07/22/2025 1:50 PM EDT us Generic External Data Provider LAB BLOOD ORDERAB LES Final Result Performing Organization Address [facility] Co de Phone Number [facility] [address] [place] [address] [phone] * (ABNORMAL) Comprehensive Metabolic Panel (07/22/2025 1:45 PM EDT) [facility] Sodium 133(L) 135 - 145 mmol/L [facility] Potassium 3.7 3.3 - 5.1 mmol/L [facility] Chloride 96 96 - 108 mmol/L [facility] Carbon Dioxide 29 22 - 29 mmol/L [facility] Anion Gap 12 12 - 20 [facility] Urea Nitrogen (BUN) 26(H) 9 - 16 mg/dL [facility] Creatinine, Serum 4.41(HH) 0.5 - 1.4 mg/dL [facility] Comment:Critical value for C REAT: Results called to and read jere HERNDON Person calling: JOCELIN Date: 07/22/25 Time: 1410 Creatinine Clr Calc Pharmacy 20.7 [facility] Comment:eGFR (calculated fro m the MDRD study equation) and eCrCl(calculated from the Cockcroft-Gault equation) are based ondifferent parameters and may not yield comparable results.If eCrCl result is absurd, please check patient'sheight/weight. Estimated Glomerular Filt Rate 14 [facility] Comment:Chronic Kidney Disea se: Estimated GFR < 60 mL/min/1.71u1Npkkri Kidney Disease: Estimated GFR < 15 mL/min/1.73m2 Glucose 203(H) 60 - 115 mg/dL [facility] Calcium 8.3(L) 8.4 - 10.2 mg/dL [facility] Bilirubin, Total 0.3 0.0 - 1.0 mg/dL [facility] Aspartate Amino Transferase 28 5 - 37 U/L [facility] Alanine Aminotransferase <6 0 - 40 U/L [facility] Total Protein 8.3(H) 6.5 - 8.0 g/dL [facility] Albumin Level 3.0(L) 3.5 - 5.0 g/dL [facility] Alkaline Phosphatase 79 39 - 117 U/L [facility] 07/22/2025 1:45 PM EDT 07/22/2025 1:50 PM EDT us Generic External Data Provider LAB BLOOD ORDERAB LES Final Result Performing Organization Address City/State/[facility] Co de Phone Number [facility] [address] [place] [phone] * XR Tibia Fibula 2 Views Right (07/22/2025 1:15 PM EDT) Anatomical Region Laterality Modality Lower Extremities, Lower Leg Right Rad iographic Imaging 07/22/2025 1:15 PM EDT Narrative 07/22/2025 1:47 PM EDT [address] [address] XRay Report Signed with Ruiz Patient: Deandre Luong MR#: [id number] 3 : 1980 Acct:[id number] Age/Sex: 45 / M ADM Date: 07/22/25 Loc: HO.ED Attending Dr: Ordering Physician: Melissa Waters NP Date of Service: 07/22/25 Procedure(s): XR tibia fibula RT 2V Accession Number(s): [id number] cc: [facility]; Melissa Waters NP Reason for Exam: [...] 07/22/25 1345 DD/ 1315 TD/TT: 07/22/25 1320 Chef & Owner: Procedure Note Donotuseinterpreter, Image - 07/22/[address] [address] XRay Report Signed with Addenda Patient: Deandre Luong MMR#: [id number] 3 : 1980Acct:[id number] Age/Sex: 45 / MADM Date: 07/22/25 Loc: HO.ED Attending Dr: Ordering Physician: Melissa Waters NP Date of Service: 07/22/25 Procedure(s): XR tibia fibula RT 2V Accession Number(s): [id number] cc: [facility]; Melissa Waters NP Reason for Exam: [...] 07/22/25 1345 DD/ 1315 TD/TT: 07/22/25 1320 Chef & Owner: [facility] External Provider IMG XR PROCEDURES Edited Result - Final * Blood Culture (Second) (07/22/2025 12:56 PM EDT) Blood Venous blood specimen / Unknown 07/22/2025 12:56 PM EDT 07/23/2025 9:21 AM EDT Comment:Blood Narrative [facility] - 07/23/2025 9:22 AM EDT Blood Culture (Second) Test not performed NO SPECIMEN RECEIVED. PATIENT DEPARTED ED Specimen Source: Blood Generic External Data Provider LAB MICROBIOLOGY - GENERAL ORDERABLES Final Result [facility] [address] [place] [phone] * (ABNORMAL) POCT A1C (07/14/2023 1:40 PM EDT) Hemoglobin A1C 11.1(A) 4.0 - 6.0 % QC Media Lot # [id number] Lot# Expiration Date [id number] Blood 07/14/2023 1:40 PM EDT Awilda Walters MD POINT OF CARE TEST ENTER /EDIT ORDERABLES Final Result * MICROALBUMIN, RANDOM (12/13/2019 1:40 PM EST) CREATININE, RANDOM URINE 32.74 MG/DL [facility] MICALB/CRE RATIO RANDOM URINE 2736.7 ug/mg cr [facility] Comment: Albumin/Creatinine Ratio Reference Ranges: Normal: < 30 ug/mg creatinine Microalbuminuria: 30 - 300 ug/mg creatinine Clinical Albuminuria: > 300 ug/mg creatinine MICROALBUMIN, RANDOM URINE 896.0 MG/L [facility] 12/13/2019 1:40 PM EST Rick Hurd MD HISTORICAL/NON ORDERABLE LABS Final Result [facility] [address] * HM Hepatitis C Antibody (06/22/2019) Hepatitis C Antibody Nonreactive Blood Historical Provider HEALTH MAINTENANCE Final Result * HIV 1/2 Antigen and Antibody (06/22/2019) HIV Ag/Ab Nonreactive Historical Provider HEALTH MAINTENANCE Final Result from Last 3 Months or Most Recently Relevant to Health Maintenance Additional Health Concerns Active Problems Noted Date Diagnosed Date Help patients manage their type 2 diabetes 09/21 Weekly blood pressure task 09/21/2025 Help patients manage their type 2 diabetes 09/21 Patient has chronic kidney disease 09/21/2025 Weekly blood pressure task 09/21/2025 Patient has chronic kidney disease 09/21/2025 Weekly blood pressure task 09/21/2025 Weekly blood pressure task 09/21/2025 Patient has chronic kidney disease 09/21/2025 Patient has chronic kidney disease 09/21/2025 Insurance [facility] C3 Care Teams Atm Technician Relationship Specialty Start Date End Date Deandre Riddle, RN [address] [place] [address] Registered Nurse Family Medicine 09/05/25 Talya Hernandez 09/05/25
--- OUTSIDE RECORDS SUMMARY | 2025-09-26 15:17 | XMS_ITS | Encounter Summary ---
Author Organization [employer] Address [address] [place] [address] Care Team Providers Care Drop Hammer Setter Up Name Role Phone Cristina Stover MD Primary Care Provider [phone] Cristina Stover MD Primary Care Provider [phone]- [phone] Cristina Stover MD Primary Care Provider [phone]- [phone] Deandre Riddle RN Unavailable [phone] Talya Hernandez Unavailable Reason for Visit * Reason Onset Date Comments PT1 05/30/2023 Encounter Details Date Type Department Care Team (Late st Contact Info) Description 05/30/2023 Telephone [facility] MEDICINE [address] [place] [phone] Cristina Stover MD [address] [place] [address] PT1 Social History Tobacco Use Types Packs/Day [...] PT1 Date: 06/02/23 Time: 9 am address: [address] [place] [address] specialty: hospital f/u # visits: senior contracts administrator: n/a Wheelchair: yes documented in this encounter Plan of Treatment Not on file documented as of this encounter Visit Diagnoses Not on filedocumented in this encounter Care Teams Drop Hammer Setter Up Relationship Specialty Start Date End Date Cristina Stover MD [address] [place] [address] PCP - General Family Medicine 05/20/14 12/30/23 Cristina Stover MD [address] [place] [address] PCP - General Family Medicine 01/06/24 08/29/24 Cristina Stover MD [address] [place] [address] PCP - General Family Medicine 11/29/24 12/20/24 Deandre Riddle, JOVITA [address] [place] [address] Registered Nurse Family Medicine 09/05/25 Talya Hernandez 09/05/25 documented as of this encounter
--- OUTSIDE RECORDS SUMMARY | 2025-09-26 15:17 | XMS_ITS | Encounter Summary ---
Author Organization [employer] Address 75 [facility] 7 [place] [address] Care Team Providers Care Reliability Engineer Name Role Phone Cristina Stover MD Primary Care Provider [phone] Cristina Stover MD Primary Care Provider [phone] Cristina Stover MD Primary Care Provider [phone]- [phone] Deandre Riddle RN Unavailable Talya Hernandez Unavailable Reason for Visit * Reason Comments Med Refill Encounter Details Date Type Department Care Team (Late st Contact Info) Description 05/26/2023 Refill [facility] [address] [place] [address] Araseli Rucker ANP [address] [place] [address] Social History Tobacco Use Types Packs/Day Years [...] on filedocumented in this encounter Care Teams Reliability Engineer Relationship Specialty Start Date End Date Cristina Stover MD [address] [place] [address] PCP - General Family Medicine 05/20/14 12/30/23 Cristina Stover MD [address] [place] [address] PCP - General Family Medicine 01/06/24 08/29/24 Cristina Stover MD [address] [place] [address] PCP - General Family Medicine 11/29/24 12/20/24 Deandre Riddle RN [address] [place] [address] Registered Nurse Family Medicine 09/05/25 Talya Hernandez 09/05/25 documented as of this encounter
--- OUTSIDE RECORDS SUMMARY | 2025-09-26 15:17 | XMS_ITS | Encounter Summary ---
Author Organization [employer] Address 75 [facility] 7 [place] [address] Care Team Providers Care Potato Bucker Name Role Phone Cristina Stover MD Primary Care Provider [phone]- [phone] Cristina Stover MD Primary Care Provider [phone]- [phone] Cristina Stover MD Primary Care Provider [phone]- [phone] Deandre Riddle RN Unavailable [phone] Talya Hernanedz Unavailable Encounter Details Date Type Department Care Team (Late st Contact Info) Description 11/19/2022 Orders Only [facility] [address] [place], [place] [phone] Nay Benitez LPN Social History Tobacco Use [...] on filedocumented in this encounter Care Teams Potato Bucker Relationship Specialty Start Date End Date Cristina Stover MD [address] [place], [place] [phone] PCP - General Family Medicine 05/20/14 12/30/23 Cristina Stover MD [address] [place], [place] [phone] PCP - General Family Medicine 01/06/24 08/29/24 Cristina Stover MD [address] [place] [address] PCP - General Family Medicine 11/29/24 12/20/24 Deandre Riddle RN [address] [place] [address] Registered Nurse Family Medicine 09/05/25 Talya Hernandez 09/05/25 documented as of this encounter
--- OUTSIDE RECORDS SUMMARY | 2025-09-26 15:18 | XMS_ITS | Encounter Summary ---
Author Organization [employer] Address 75 [facility] 7t [place] [address] Care Team Providers Care Automobile Appraiser Name Role Phone Deandre Riddle RN Unavailable [phone] Talya Hernandez Unavailable Reason for Visit * Reason Comments Care Coordination C3/W Talya lambert, initial outreach attempt_lvm Encounter Details Date Type Department Care Team (Latest Contact Info) Description 09/21/2025 Patient Outreach [facility] MED[facility] [address] [place] [address] Talya Hernandez Care Coordination (C3CM/ENRIQUETAW Talya Hernandez, initial outreach attempt_lvm) Social History Tobacco Use Types Packs/Day Years [...] as of this encounter Progress Notes * Talya Hernandez - 09/21/2025 10:09 AM EST CHW Talya Hernandez, placed outbound call to patient to introduce [facility] Complex Care Program / SDOH support services. No answer at this time. CHW KERRIM introducing herself from [facility] CM Department with CHW's name, department and direct contact number requesting call back. Will re-attempt to contact within 2 days. and address not confirmed. documented in this encounter Plan of Treatment Not on file documented as of this encounter Goals Goal Patient Goal Type Associated Problems Recent Progress Patient-Stated? Author Help patients manage their type 2 diabetes Care Plan Help patients manage their type 2 diabetes Talya Sherman Weekly blood pressure task Care Plan Weekly blood pressure task Talya Sherman Help patients manage their type 2 diabetes [...] Care Plan Patient has chronic kidney disease Talya Sherman documented as of this encounter Visit Diagnoses Not on filedocumented in this encounter Additional Health Concerns Active Problems Noted Date [...] 09/21/2025 Patient has chronic kidney disease 09/21/2025 documented as of this encounter Care Teams Automobile Appraiser Relationship Specialty Start Date End Date Deandre Riddle, JOVITA [address] [place] [address] Registered Nurse Family Medicine 09/05/25 Talya Hernandez 09/05/25 documented as of this encounter
--- OUTSIDE RECORDS SUMMARY | 2025-09-26 15:18 | XMS_ITS ---
Author Organization [employer] Address [address] [place] [address] 7 [place] [address] Care Team Providers Care Care Process Manager Name Role Phone Deandre Riddle RN Unavailable [phone] Talya Hernandez Unavailable CM Complex Status:Outreach In Progress (Enrolling) Start date:09/05/2025 Enrollment reason:ADT Feed Overview ADT- Pt admitted [place] [facility] [place]04[place]. Case Team Name Relationship Phone Deandre Riddle RN(Responsible Staff) Registered [facility] [phone] Continued Care and Services Coordination
--- OUTSIDE RECORDS SUMMARY | 2025-09-26 15:18 | XMS_ITS | Clinical Summary ---
Author Organization [facility] Address [address] [facility] [address] [place] [address] Phone Care Team Providers Care Rectifying Attendant Name Role Phone Cristina Stover MD [...] EDT) SODIUM 127(L) 133 - 146 mmol/L [facility] CHLORIDE 92(L) 96 - 108 mmol/L [facility] POTASSIUM 5.6(H) 3.3 - 5.1 mmol/L [facility] Comment:Specimen slightly he molyzed, result may be falsely elevated. CO2 27 21 - 35 mmol/L [facility] BUN 40(H) 6 - 19 mg/dL [facility] CREATININE 3.30(H) 0.5 - 1.5 mg/dL [facility] GLUCOSE 325(H) 70 - 99 mg/dL [facility] CALCIUM 9.7 8.4 - 10.3 mg/dL [facility] EGFR 23(L) >59 mL/min/1.7 3m2 [facility] Comment:Estimated glomerular filtration rate calculated using the CKD-EPI refit equation. ANION GAP 14 10 - 20 mmol/L [facility] Blood 02/16/2022 5:52 PM EDT 02/16/2022 6:00 PM EDT us Jeny Feldman MD LAB BLOOD BKR ORDERABLES Fin al Result [address] [address] from Last 3 Months or Most Recently Relevant to Health Maintenance Insurance C3 ACO C3 ACO C3 ACO C3 ACO C3 ACO C3 ACO C3 ACO C3 ACO Care Teams Rectifying Attendant Relationship Specialty Start Date End Date Ck, Cristina Petersen MD [address] [place] [address] PCP - General 08/19/17 Additional Source Comments The information contained in this document represents components of the legal health record. It is not the complete legal health record.[facility]
--- OUTSIDE RECORDS SUMMARY | 2025-09-26 15:18 | XMS_ITS | Encounter Summary ---
Author Organization [employer] Address 75 [facility] 7t [place] [address] Care Team Providers Care Administrator Health Care Facility Name Role Phone Deandre Riddle RN Unavailable [phone] DavidTalya Unavailable Encounter Details Date Type Department Care Team (Late st Contact Info) Description 09/26/2025 Orders Only GENERIC EXTERNAL DATA DEPARTMENT Provider, Generic External Data Social History Tobacco Use Types Packs/Day Years [...] has chronic kidney disease No Talya Hernandez documented as of this encounter Procedures Procedure Name Priority Date/Time Associated Diagnosis Comments DRUG MONITOR, PANEL 1, SCREEN, URINE Routine 09/26/2025 1:11 PM EST HIGH SENSITIVITY TROPONIN I Routine 09/26/2025 10:56 AM EST documented in this encounter Results * (ABNORMAL) Drug Monitoring, Panel 1, Screen, Urine (09/26/2025 1:11 PM EST) Opiate Screen Urine POSITIVE(A) Not Detect [facility] Comment:Opiate cut-off is 30 0 ng/mL.Positive results are unconfirmed and should not be used fornon-medical purposes. Barbiturates, Urine Not Detected Not Detect [facility] Comment:Barbiturate cut-off is 200 ng/mL.Positive results are unconfirmed and should not be used fornon-medical purposes. Phencyclidine Screen Urine Not Detected Not Detect [facility] Comment:Phencyclidine cut-of f is 25 ng/mL.Positive results are unconfirmed and should not be used fornon-medical purposes. Amphetamine Screen Urine Not Detected Not Detect [facility] Comment:Amphetamine cut-off is 1000 ng/mL.Positive results are unconfirmed and should not be used fornon-medical purposes. Benzodiazepines Screen Urine Not Detected Not Detect [facility] Comment:Benzodiazepine cut-o ff is 200 ng/mL.Positive results are unconfirmed and should not be used fornon-medical purposes. Cocaine Screen Urine POSITIVE(A) Not Detect [facility] Comment:Cocaine cut-off is 3 00 ng/mL.Positive results are unconfirmed and should not be used fornon-medical purposes. Cannabinoid Screen Urine Not Detected Not Detect [facility] Comment:Cannabinoid cut-off is 50 ng/mL.Positive results are unconfirmed and should not be used fornon-medical purposes. Methadone Screen, Urine Not Detected Not Detect ng/mL [facility] Comment:Methadone cut-off is 300 ng/mL.Positive results are unconfirmed and should not be used fornon-medical purposes. FENTANYL URINE POSITIVE(A) Not Detect [facility] Comment:Fentanyl cut-off is 1 ng/mL.Positive results are unconfirmed and should not be used fornon-medical purposes. Oxycodone Urine Screen Not Detected Not Detect ng/mL [facility] Comment:Oxycodone cut-off is 100 ng/mL.Positive results are unconfirmed and should not be used fornon-medical purposes. Buprenorphine Screen Not Detected Not Detect ng/mL [facility] Comment:Buprenorphine cut-of f is 5 ng/mL.Positive results are unconfirmed and should not be used fornon-medical purposes. 09/26/2025 1:11 PM EST 09/26/2025 1:15 PM EST us Generic External Data Provider LAB URINE ORDERAB LES Final Result [facility] [address] [place] [address] [phone] * (ABNORMAL) High Sensitivity Troponin I (09/26/2025 10:56 AM EST) TROPONIN I HIGH SENSITIVITY 899.0(HH) <3.5 - 35.0 ng/L [facility] Comment:Critical value for t est(s): TROP Results called to and readback by: HAZEL Person calling: ABDIFATAH Date: 09.26.25Time: 1303The Roe high sensitivity Troponin-I results should beused in conjunction with other diagnostic information suchas ECG, clinical observations and information, and patientsymptoms to aid in the diagnosis of [place]. 09/26/2025 10:5 6 AM EST 09/26/2025 12:28 PM EST us Generic External Data Provider LAB BLOOD ORDERAB LES Final Result Performing Organization Address City/State/[facility] Co de Phone Number [facility] [address] [place] [address] [phone] documented in this encounter Visit Diagnoses Not on filedocumented [...] documented as of this encounter Care Teams Administrator Health Care Facility Relationship Specialty Start Date End Date Deandre Riddle, JOVITA [address] [place] [address] Registered Nurse Family Medicine 09/05/25 Talya Hernandez 09/05/25 documented as of this encounter
--- OUTSIDE RECORDS SUMMARY | 2025-09-26 15:18 | XMS_ITS | Encounter Summary ---
Author Organization [employer] Address 75 [facility] 7t [place] [address] Care Team Providers Care Racing Driver Name Role Phone Cristina Stover MD Primary Care Provider [phone] Cristina Stover MD Primary Care Provider Cristina Stover MD Primary Care Provider Deandre Riddle RN Unavailable [phone] Talya Hernandez Unavailable Encounter Details Date Type Department Care Team (Late st Contact Info) Description 10/17/2023 Telephone [facility] MEDICINE [address] [place] [address] Cristina Stover MD [address] [place] [address] Social History Tobacco Use Types Packs/Day Years [...] mom of pt requesting Phone number of [facility] wheel chair clinic. PCP DR. Stover documented in this encounter Plan of Treatment Not on file documented as of this encounter Visit Diagnoses Not on filedocumented in this encounter Care Teams Racing Driver Relationship Specialty Start Date End Date Cristina Stover MD [address] [place] [address] PCP - General Family Medicine 05/20/14 12/30/23 Cristina Stover MD [address] [place] [address] PCP - General Family Medicine 01/06/24 08/29/24 Cristina Stover MD [address] [place] [address] PCP - General Family Medicine 11/29/24 12/20/24 Deandre Riddle, JOVITA [address] [place] [address] Registered Nurse Family Medicine 09/05/25 Talya Hernandez 09/05/25 documented as of this encounter
--- OUTSIDE RECORDS SUMMARY | 2025-09-26 15:18 | XMS_ITS | Encounter Summary ---
Author Organization [employer] Address 75 [facility] 7 [place] [address] Care Team Providers Care Internal Medicine Specialist Name Role Phone Cristina Stover MD Primary Care Provider [phone]- [phone] Cristina Stover MD Primary Care Provider [phone]- [phone] Cristina Stover MD Primary Care Provider [phone]- [phone] Deandre Riddle RN Unavailable [phone] Talya Hernandez Unavailable Encounter Details Date Type Department Care Team (Late st Contact Info) Description 03/20/2023 Orders Only [facility] [address] [place], [place] [phone] Nay Benitez LPN Social History Tobacco Use [...] on filedocumented in this encounter Care Teams Internal Medicine Specialist Relationship Specialty Start Date End Date Cristina Stover MD [address] [place], [place] [phone] PCP - General Family Medicine 05/20/14 12/30/23 Cristina Stover MD [address] [place], [place] [phone] PCP - General Family Medicine 01/06/24 08/29/24 Cristina Stover MD [address] [place] [address] PCP - General Family Medicine 11/29/24 12/20/24 Deandre Riddle RN [address] [place] [address] Registered Nurse Family Medicine 09/05/25 Talya Hernandez 09/05/25 documented as of this encounter
--- OUTSIDE RECORDS SUMMARY | 2025-09-26 15:18 | XMS_ITS ---
Author Organization [employer] Address [address] [place] [address] Care Team Providers Care Oil Burner Installer Name Role Phone Deandre Riddle RN Unavailable [phone] Talya Hernandez Unavailable CHW Complex Status:Outreach In Progress (Enrolling) Start date:09/05/2025 Enrollment reason:ADT Feed Overview ADT- [place] [facility]. Case Team Name Relationship Phone Talya Hernandez(Responsible Staff) [phone] Continued Care and Services Coordination
--- OUTSIDE RECORDS SUMMARY | 2025-09-26 15:18 | XMS_ITS | Encounter Summary ---
Author Organization [facility] Address [address] [place] [phone] Phone Care Team Providers Care Yeast Culture Operator Name Role Phone [place], Cristina Petersen MD Primary Care Provi jason Encounter Details Date Type Department Care Team (Late st Contact Info) Description 02/16/2022 Procedure Pass [facility], Ct Scan - [address] [address] Social History Tobacco Use Types Packs/Day Years [...] 4:52 PM EDT Alan Gutiérrez RN * [place] Suicide Severity Rating Scale (Screener/Recent Self-Report) Question [...] on filedocumented in this encounter Care Teams Yeast Culture Operator Relationship Specialty Start Date End Date [place], Cristina Petersen MD [address] [place] [address] PCP - General 08/19/17 documented as of this encounter Additional Source Comments The information contained in this document represents components of the legal health record. It is not the complete legal health record.[facility]
--- OUTSIDE RECORDS SUMMARY | 2025-09-26 15:18 | XMS_ITS | Encounter Summary ---
Author Organization [facility] Address [address] [facility] [address] [place] [address] Care Team Providers Care Crime Investigator Special Agent Name Role Phone Deandre Riddle RN Unavailable [phone] Talya Hernandez Unavailable Encounter Details Date Type Department Care Team (Late st Contact Info) Description 09/21/2025 Patient Outreach [facility] [address] [place] [address] Talya Hernandez Social History Tobacco Use Types Packs/Day Years [...] Talya Hernandez documented as of this encounter Visit Diagnoses [...] documented as of this encounter Care Teams Crime Investigator Special Agent Relationship Specialty Start Date End Date Deandre Riddle RN [address] [place] [id number] Registered Nurse Family Medicine 09/05/25 Talya Hernandez 09/05/25 documented as of this encounter
--- OUTSIDE RECORDS SUMMARY | 2025-09-26 15:18 | XMS_ITS | Encounter Summary ---
Author Organization [employer] Address [address] [facility] 7t [place] [address] Care Team Providers Care Plastic Manager Name Role Phone Deandre Riddle RN Unavailable [phone] DavidTalya Unavailable Reason for Visit * Reason Comments Med Refill Encounter Details Date Type Department Care Team ([facility] st Contact Info) Description 04/06/2025 Refill [facility] [address] [place] [address] Cristina Stover MD [address] [place] [address] Social History Tobacco Use Types Packs/Day Years [...] on filedocumented in this encounter Care Teams Plastic Manager Relationship Specialty Start Date End Date Deandre Riddle RN [address] [place] [phone] Registered Nurse Family Medicine 09/05/25 Talya Hernandez 09/05/25 documented as of this encounter
--- OUTSIDE RECORDS SUMMARY | 2025-09-26 15:18 | XMS_ITS | Encounter Summary ---
Author Organization [facility] Address [address] [facility] 7 [place] [address] Care Team Providers Care Cupola Melting Supervisor Name Role Phone Cristina Stover MD Primary Care Provider [phone] Cristina Stover MD Primary Care Provider Cristina Stover MD Primary Care Provider Deandre Riddle RN Unavailable [phone] Talya Hernandez Unavailable Reason for Visit * Reason Onset Date Comments Hospital Follow-up 11/26/2023 Encounter Details Date Type Department Care Team (Late st Contact Info) Description 11/26/2023 Telephone [facility] [address] [place], [place] [phone] Cristina Stover MD [address] [place] [address] Hospital Follow-up Social History Tobacco Use Types [...] requesting a HDF appt. [place] [facility] [place] of admission: 11/16/2023 Discharge date: 11/25/2023 Diagnosed: Surgery (amputation) documented in this encounter Plan of Treatment Not on file documented as of this encounter Visit Diagnoses Not on filedocumented in this encounter Care Teams Cupola Melting Supervisor Relationship Specialty Start Date End Date Cristina Stover MD [address] [place] [address] PCP - General Family Medicine 05/20/14 12/30/23 Cristina Stover MD [address] [place] [phone] PCP - General Family Medicine 01/06/24 08/29/24 Cristina Stover MD [address] [place] [id number] PCP - General Family Medicine 11/29/24 12/20/24 Deandre Riddle, RN [address] [place], [place] [address] [address] Registered Nurse Family Medicine 09/05/25 Talya Hernandez 09/05/25 documented as of this encounter
--- NOTE | 2025-09-26 15:50 | HO.NURTONUR ---
Pt is a 45yo male with hx of seizures and presented to ED for same. Does not take anti seizure meds. Pt reports smoking crack cocaine last pm. Witnessed seizure this by mother. On arrival pt was a/o, did not remember events that caused him to come to the ED. While in ED pt was given a sandwich, began seizing while eating sandwich. Food cleared from mouth, nasal trumpet placed. Bloody secretions suctioned. Pt received valium and keppra. To be admitted for breakthrough seizures. Pt is MWF HD pt. Rt tunneled IJ HD catheter. 20gRFA and 20gLH. Pt alert/oriented x3. Pt to go to HD prior to bed assignment
[2025-09-26 16:07] LABS: Troponin-I High Sensitivity 991.4 ng/L (<3.5-35.0)
--- NOTE | 2025-09-26 16:25 | P.CNNE_ITS ---
History of Present Illness Data of Consult Service Date: 09/26/25 Primary Care Provider: [facility] Reason for consult: Possible seizure 45 years old man with end-stage renal disease on dialysis right below-knee left toes amputation came to hospital after ?a seizure?. Details were unclear. He was unable to provide any meaningful history or details. Review of Systems 2 Review of Systems: Complain of unresponsiveness. No recent cold or flu-like illness, or trauma. [facility] Past Medical History Medical History PVD (peripheral vascular disease) ESRD (end stage renal disease) Diabetic skin ulcer Opioid use disorder, severe, dependence Anemia in chronic kidney disease (CKD) ESRD (end stage renal disease) on dialysis Cardiomyopathy Pericardial effusion Leukocytosis Transfusion history Atrial flutter, paroxysmal COPD (chronic obstructive pulmonary disease) Constipation Callus of foot Seizure Polysubstance abuse CKD (chronic kidney disease) stage 3, GFR 30-59 ml/min Foot osteomyelitis, left Amputation of toe of right foot Diabetic ulcer of right foot Sleep apnea Diabetes HTN (hypertension) Surgical History Surgical History History of surgery on arm History of surgery History of surgery 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 History of surgical procedure (~04/24/23) Social History Social History Household Members: Family Household Members Other:: Mother Housing: Unknown / Unable to assess Are you a primary resident caregiver to a significant other at home: No Alcohol intake: former 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 Patient Tobacco Use Status: Tobacco use Unknown Tobacco use type: Cigarette Cigarette Packs Per Day: 0.5 Cigarettes Per Day: 6 Years Smoked: 33 e-Cigarette/Vaping Use: Currently Using Second Hand Smoke Exposure: Yes Substance Use Type: Crack/Cocaine and Heroin Advance Directives: No Advance Directives Information Provided: Yes Do you have a plan to hurt others: No Plan service: No Meds Allergies Allergy/AdvReac Type Severity Reaction Status Date / Time No Known Allergies (No Known Allergy Verified 09/26/25 10:42 Allergies*) Active Medications: Current Medications Acetaminophen (Acetaminophen 325 Mg Tablet) 650 mg PO Q6H PRN PRN Reason: Pain, Mild 1-3,fever,headache Buprenorphine/Naloxone (Buprenorphine/Naloxone 8/2 Mg Film) 1 film SUBLINGUAL TID LYSSA Calcium Carbonate (Calcium Carbonate 750 Mg Tab.Chew) 750 mg PO Q4H PRN PRN Reason: Heartburn Heparin Sodium (Porcine) (Heparin Sodium,Porcine 5,000 Unit/Ml Vial) 5,000 unit SUBCUT Q12H [facility] Last Admin: 09/26/25 15:08 Dose: 5,000 unit Levetiracetam (Levetiracetam 500 Mg Tablet) 500 mg PO BID LYSSA Magnesium Hydroxide (Milk Of Magnesia 30 Ml Oral.Susp) 30 ml PO DAILY PRN PRN Reason: Constipation Melatonin (Melatonin 3 Mg Tablet) 6 mg PO BEDTIME PRN PRN Reason: Insomnia Ondansetron HCl (Ondansetron Hcl 4 Mg/2 Ml Vial) 4 mg IVPUSH Q8H PRN PRN Reason: Nausea and Vomiting Sodium Chloride (0.9 % Sodium Chloride Flush 3 Ml Syringe) 3 ml IVFLUSH QSHIFT [facility] Last Admin: 09/26/25 15:08 Dose: 3 ml Physical Exam 2 Vital Signs: Vital Signs: Last Vital Signs Temp 98.3 F 09/26/25 11:37 Pulse 81 09/26/25 14:00 Resp 14 09/26/25 14:00 BP 141/92 H 09/26/25 14:00 Pulse Ox 98 09/26/25 14:00 O2 Del Method Nasal Cannula 09/26/25 14:00 O2 Flow Rate 2 09/26/25 14:00 BMI result Body Mass Index 25.6 Neuro: Other: He was sleeping when I came to emergency room. I was able to wake him up. He interacted and followed one-step commands. He was frequently dozing off stating that he was tired. There was no obvious facial asymmetry. Visual thomson are full. Extraocular muscles were intact. There was no obvious arm weakness. He was able to move his right thigh in left leg. Results Labs 09/26/25 10:56 09/26/25 10:56 Labs: Short CBC 09/26/25 Range/Units 10:56 WBC 11.0 H (4.8-10.8) X10*3/uL Hgb 11.7 L (14.0-18.0) g/dl Hct 37.2 L (42.0-52.0) % Plt Count 224 (160-400) X10*3/uL BMP 09/26/25 10:56 Sodium 133 L Potassium 5.5 H D Chloride 96 Carbon Dioxide 25 BUN 57 H Creatinine 8.28 H* Calcium 8.3 L Liver Function 09/26/25 Range/Units 10:56 Total Bilirubin 0.3 (0.0-1.0) mg/dL AST 37 (5-37) U/L ALT < 6 (0-40) U/L Alkaline Phosphatase 106 (39-117) U/L Albumin 3.5 (3.5-5.0) g/dL CT HEAD WITHOUT CONTRAST CLINICAL INFORMATION: Mental status changes. COMPARISON: 09/04/2025. 05/11/2023. TECHNIQUE: Contiguous axial imaging was performed from the skull base to vertex without intravenous administration of contrast. This CT examination was performed using dose optimization techniques as appropriate, variously including the following: *Automated exposure control *Adjustment of mA and/or kV according to patient size (this includes techniques or standardized protocols for targeted exams where dose is matched to indication/reason for exam; i.e. extremities or head) *Use of iterative reconstruction technique FINDINGS: There is no evidence of intracranial hemorrhage or extra-axial fluid collection. There is no mass effect, or edema. No CT evidence of acute territorial infarct. Ventricles, sulci, and cisterns are normal in size and configuration for patient age. No hydrocephalus. No midline shift. Negative hyperdense MCA sign. Negative insular ribbon sign. No significant white matter attenuation abnormalities. Normal pituitary. Mild atheromatous calcification of the bilateral carotid siphons and V4 segments vertebral arteries bilaterally. Globes and orbital contents image normally. Extracranial soft tissues demonstrate a small residual low occipital scalp hematoma, decreased from prior. The paranasal sinuses, mastoid air cells, and tympanic cavities are normally aerated. No suspicious bony abnormalities. There are no acute fractures evident. CT/CT head/brain wo IV con IMPRESSION: 1. No acute intracranial abnormality. 2. Small residual low occipital scalp hematoma, improving. Assessment and Plan (1) Acute alteration in mental status: Status: Acute 45 years old man with end-stage renal disease and quite abnormal renal functions, status post right leg in left toes amputation came to hospital with an episode of unresponsiveness or maybe a convulsion but details were not available. He was unable to provide any history. His examination suggested drowsiness with unclear etiology. An EEG is recommended to look at possibility of seizure disorder. Procedures Date of Service Date of Service: 09/26/25
[2025-09-26 20:11] LABS: Glucose, Whole Blood 97 mg/dL (60-115)
[2025-09-27 03:09] VITALS: BP 169/92; PULSE 90; RESP 16; TEMP 36.8; O2SAT 100
[2025-09-27 06:54] VITALS: BP 161/86; PULSE 82; RESP 16; TEMP 36.7; O2SAT 98
[2025-09-27 07:10] LABS: Glucose, Whole Blood 199 mg/dL (60-115)
[2025-09-27 07:24] LABS: Hematocrit 42.4 % (42.0-52.0); Hemoglobin 13.5 g/dl (14.0-18.0); Mean Corpuscular HGB Conc 31.8 g/dl (31.0-36.0); Mean Corpuscular Hemoglobin 29.5 pg (27.0-33.0); Mean Corpuscular Volume 92.8 fL (80.0-98.0); NRBC Abs Auto 0.000 X10*3/uL (0.0-0.012); NRBC Pct Auto 0.0 /100WBC (0.0-0.2); PLT CLUMP 1; Red Blood Count 4.57 X10*6/uL (4.60-5.80)
[2025-09-27 07:31] LABS: Alanine Aminotransferase < 6 U/L (0-40); Albumin Level 3.4 g/dL (3.5-5.0); Alkaline Phosphatase 111 U/L (39-117); Anion Gap 17 (12-20); Aspartate Amino Transferase 35 U/L (5-37); Blood Urea Nitrogen 49 mg/dL (9-16); Calcium 8.3 mg/dL (8.4-10.2); Carbon Dioxide 26 mmol/L (22-29); Chloride 96 mmol/L (96-108); Creatinine Clr Calc Pharmacy 12.8; Estimated Glomerular Filt Rate 8; Potassium 5.2 mmol/L (3.3-5.1); Sodium 134 mmol/L (135-145); Total Protein 8.1 g/dL (6.5-8.0)
[2025-09-27 07:52] LABS: Platelet Count 209 X10*3/uL (160-400); White Blood Count 9.4 X10*3/uL (4.8-10.8)
[2025-09-27] MEDS: 0.9 % Sodium Chloride Flush 3 ML SYRINGE IVFLUSH (07:57)
--- NOTE | 2025-09-27 08:25 | MHC.CM.PN ---
Patient lives in an apartment with his Mother and uses both a cane and a w/c to assist with mobility. Patient attends HD Q M/W/F @ [facility] and he is on Suboxone. Home/resume said services is the goal and CM has initiated and will follow for dc planning. PCP is Dr. Cristina Stover and Patient prefers [facility] for transport at dc.
[2025-09-27 10:48] LABS: Glucose, Whole Blood 172 mg/dL (60-115)
[2025-09-27 12:00] VITALS: BP 147/76; PULSE 93; RESP 16; TEMP 36.7; O2SAT 99
--- NOTE | 2025-09-27 12:43 | HO.WOUND ---
Wound Consult: Initial 45 yr old male admitted to [facility] on 09/26/25- See progress notes and H&P for detailed history. Wound consult placed for coccyx, right BKA. Patient agreeable to assessment and photo documentation. Patient with history of extensive wounding, largely healed. Patient reports not using any dressings at home for wounds, reports he is unable to get to the wound center. Explained importance of wound care, gave wound care instructions, patient verbalized understanding. Coccyx Etiology: Stage 4 pressure injury POA - previously documented stage 4 now shallow with moist pink/yellow base Measurements: 0.8cm x 0.5cm x 0.3cm Wound Bed: moist pink/yellow superficial full thickness, thickened moist white edges - supererior noted with healed contracted and callused scar tissue Drainage / Odor: scant serous, no odor Edges: ? moist Corazon wound: ? No Induration, Fluctuance or Warmth noted Pain: none Goals of Treatment: ? durafiber ag for drainage absorption Right BKA Etiology: diabetic Measurements: 4cm x 2cm x 0.4cm Wound Bed: moist red thin layer of yellow biofilm Drainage / Odor: small serosanguineous mild odor Edges: ? thicknened/rolled and callused Corazon wound: ? No Induration, Fluctuance or Warmth noted Pain: yes Goals of Treatment: ? durafiber for drainage absorption and antimicrobial effects left foot- dry stable eschar no fluctuance no induration no drainage- betadine Left heel- healed skin injury with small dry callus- betadine Recommendations: 1. Turn and Reposition every 2 hours and as needed for patient comfort. Use pillows or wedges to support off loading positions. 2. Off Load all bony prominences with use of pillows and heel boots if needed. Apply Preventative foams where needed. 3. Monitor for incontinence and moisture control, use barrier creams when needed for prevention and treatment. 4. Provide adequate and supplemental nutrition. 5. Order or Continue low air loss mattress. 6. When applicable maintain blood glucose levels per Providers order. Re-consult wound care Nurse for wound deterioration or wound changes. Right BKA: cleanse with saline, apply durafiber ag, cover with foam, change every other day and PRN. Left TMA: apply betadine daily and PRN Coccyx: offload pressure with Q2H turns and pillows, cleanse with saline, pat dry, apply durafiber ag, cover with foam, change every other day and PRN
--- NOTE | 2025-09-27 12:59 | MHC.CM.PN ---
Per RN, Patient has chosen to leave AMA. Per Patient's preference, CM called [facility] to determine if they can transport Patient home via BLS, if he is leaving AMA. CM was informed by [facility], that a trip had already been booked by a woman for 4PM today. Once [facility] was aware of the AMA, they indicated that Patient would need to pay privately for the trip ($214.00). CM spoke with Patient's Mother, who booked the trip, and she said that she cannot afford to pay. Mother called back and indicated that she was able to get a ride for Patient. RN & MD were jose aware.
--- NOTE | 2025-09-27 15:33 | PM.DS ---
DS: Providers Provider Date of Service: 09/27/25 Date of admission: 09/26/25 13:45 Date of discharge: 09/27/25 Primary care physician: [facility] Consults: 09/26/25 12:50 Consult to Nephrology Stat Consulting Provider: [facility] Reason for consultation: need dyalisis 09/26/25 13:46 Consult to Nephrology Routine Consulting Provider: [facility] Reason for consultation: ESRD 09/26/25 13:47 Consult to Neurology Routine Consulting Provider: [facility] Reason for consultation: Breakthrough seizure 09/26/25 16:36 Consult to Wound Care Routine Consulting Provider: [facility] Reason for consultation: Coccyx, Right Amp site, Left TMA site DS: Diagnosis Discharge Diagnosis (1) Chronic renal failure: Status: Acute (2) Opioid use disorder, severe, dependence: Status: Acute (3) Seizure: Status: Acute DS: Summary Hospital Course Hospital Course: Patient was admitted for breakthrough seizures, with labs positive for cocaine, fentanyl and opiates. seen by Neurology suggested on doing EEG, for possibility of seizure disorder. After talking to patient, patient states that he wishes to leave AMA as he does not wish to wait for EEG or any studies. Patient advised on staying as if patient has seizures which are uncontrolled, may leave to falls, CVA, hemorrhages and even . Patient resident in understanding and still wishes to leave AMA. Patient signed AMA paperwork and left. Time Attestation Discharge Coordination Time (in mins): 35 minues Quality: Safe Use of Opioids Does Pt have an Active Cancer Diagnosis on the Problem List?: No Quality: Stroke Does the patient have a stroke diagnosis?: No Physical Exam Exam: Exam: General: AxOx3, No acute distress Head: AT/NC ENT: Moist mucous membranes Neck: supple CVS; RRR, S1 S2 normal Lungs: Clear bilateral breath sounds, no wheezes or crackles Abd: Soft non tender, non distended Ext: No edema MSK: amputated LE Skin: No cyanosis Psych: Cooperative with exam Neurology: no focal deficit Vital Signs: Vital Signs: Last Vital Signs Temp 98.1 F 09/27/25 12:00 Pulse 93 09/27/25 12:00 Resp 16 09/27/25 12:00 BP 147/76 H 09/27/25 12:00 Pulse Ox 99 09/27/25 12:00 O2 Del Method Room Air 09/27/25 12:00 O2 Flow Rate 2 09/26/25 14:00 BMI result Body Mass Index 25.6 DS: Data Data Completed and Pending Completed studies during hospitalization [Text1]: Procedures Assistance with Respiratory Ventilation, Less than 24 Consecutive Hours, Continuous Positive Airway Pressure (11/05/24) Detachment at Right 2nd Toe, Complete, Open Approach (04/18/23) Drainage of Left Pleural Cavity with Drainage Device, Percutaneous Approach (10/04/24) Drainage of Left Pleural Cavity, Percutaneous Approach (09/21/24) Excision of Inguinal Skin, External Approach (12/17/24) Excision of Left Foot Skin, External Approach (11/05/24) Excision of Male Perineum, Open Approach (11/05/24) Excision of Right Foot Subcutaneous Tissue and Fascia, Open Approach (04/18/23) Excision of Right Upper Leg Skin, External Approach (12/17/24) Excision of Right Upper Leg Subcutaneous Tissue and Fascia, Open Approach (11/05/24) Fluoroscopy of Superior Vena Cava using Low Osmolar Contrast, Guidance (04/18/23) Insertion of Endotracheal Airway into Trachea, Via Natural or Artificial Opening (09/04/25) Insertion of Infusion Device into Right Atrium, Percutaneous Approach (10/04/24) Insertion of Infusion Device into Superior Vena Cava, Percutaneous Approach (10/04/24) Insertion of Tunneled Vascular Access Device into Chest Subcutaneous Tissue and Fascia, Percutaneous Approach (10/04/24) Introduction of Vasopressor into Peripheral Vein, Percutaneous Approach (11/05/24) Performance of Urinary Filtration, Intermittent, Less than 6 Hours Per Day (09/04/25) Respiratory Ventilation, 24-96 Consecutive Hours (09/04/25) Transfusion of Nonautologous Red Blood Cells into Peripheral Vein, Percutaneous Approach (11/05/24) Ultrasonography of Superior Vena Cava, Guidance (10/04/24) Labs on day of discharge: Laboratory Results - last 24 hr 09/26/25 09/26/25 09/27/25 15:32 20:05 06:52 WBC 9.4 RBC 4.57 L Hgb 13.5 L Hct 42.4 MCV 92.8 MCH 29.5 MCHC 31.8 RDW 15.1 Plt Count 209 MPV 11.6 Absolute Nucleated RBC 0.000 Nucleated RBC % (auto) 0.0 Sodium 134 L Potassium 5.2 H Chloride 96 Carbon Dioxide 26 Anion Gap 17 BUN 49 H Creatinine 7.09 H* Estim Creat Clear Calc 12.8 Estimated GFR 8 POC Glucose 97 Random Glucose 179 H Calcium 8.3 L Total Bilirubin 0.3 AST 35 ALT < 6 Alkaline Phosphatase 111 Troponin I High Sens 991.4 H* Total Protein 8.1 H Albumin 3.4 L 09/27/25 09/27/25 07:06 10:41 WBC RBC Hgb Hct MCV MCH MCHC RDW Plt Count MPV Absolute Nucleated RBC Nucleated RBC % (auto) Sodium Potassium Chloride Carbon Dioxide Anion Gap BUN Creatinine Estim Creat Clear Calc Estimated GFR POC Glucose 199 H 172 H Random Glucose Calcium Total Bilirubin AST ALT Alkaline Phosphatase Troponin I High Sens Total Protein Albumin Discharge Plan Discharge Patient Disposition: Left Against Medical Advice Discharge Diagnosis: Seizures Referrals: [facility] [Primary Care Provider, Medical] - 1 Week Discharge Medications: No Action (DME) pen needle, diabetic 32 gauge x 1/4 needle Qty: 100 0RF Rx Instructions: Use four times a day or as directed. (DME) Dakins solution 1/4 strength 500ml See Rx Instructions .Route .MEDSUPPLY Qty: 1 0RF Rx Instructions: As directed (DME) FreeStyle Lite Strips Strip Qty: 100 0RF Rx Instructions: Test four times a day or as directed. (DME) blood-glucose meter Kit Qty: 1 0RF Rx Instructions: As Directed (DME) lancets [FreeStyle Lancets] 28 gauge misc Qty: 100 0RF Rx Instructions: Test four times a day or as directed. buprenorphine-naloxone [Suboxone] 8-2 mg film 1 film sublingual TID 30 Days Qty: 90 2RF Discharge Orders: Discharge Order (Routine); Ordered 09/27/25 Ordered By: Humberto Reno Print Language: Cymraes Care Plan Goals: Follow up for seizures Health Concerns: Seizure disorder opioid use disorder Plan of Treatment: follow up with primary care provider Assessment: Patient was admitted for breakthrough seizures, with labs positive for cocaine, fentanyl and opiates. seen by Neurology suggested on doing EEG, for possibility of seizure disorder. After talking to patient, patient states that he wishes to leave AMA as he does not wish to wait for EEG or any studies. Patient advised on staying as if patient has seizures which are uncontrolled, may leave to falls, CVA, hemorrhages and even . Patient resident in understanding and still wishes to leave AMA. Patient signed AMA paperwork and left. Discharge Date/Time: 09/27/25 13:13
== END 2025-09-27 13:13 | disposition left against medical advice (07) | DRG 53 ==
LOC: HO.ED 12:53 → HO.EDOVER 14:15 → HO.IMC 15:37
PROVIDERS: Hospitalist; Admitting Provider Nurse Practitioner Acute Care; Emergency Provider Emergency Medicine; PCP Family Medicine; Visit Provider Student in an Organized Health Care Education/Training Program
DX: R56.9 Unspecified convulsions (principal); I12.0 Hypertensive chronic kidney disease with stage 5 chronic kidney disease or end stage renal disease; E11.22 Type 2 diabetes mellitus with diabetic chronic kidney disease; N18.6 End stage renal disease; F11.20 Opioid dependence, uncomplicated; Z99.2 Dependence on renal dialysis; Z91.158 Patient's noncompliance with renal dialysis for other reason; Z89.511 Acquired absence of right leg below knee; Z79.899 Other long term (current) drug therapy
CPT/HCPCS: 36415; 70450; 71045; 80053; 80307; 82947; 84484; 85025; 85027; 90999; 93005; 99285; J1644; J1953; J3360

== ENCOUNTER → 2025-09-26 10:50 | Outpatient (BNV) | payer MEDICAID, SELFPAY | PROVIDERS: Admitting Provider Nurse Practitioner Acute Care; Emergency Provider Emergency Medicine; Visit Provider Internal Medicine Cardiovascular Disease | DX: I44.0 Atrioventricular block, first degree (principal) | CPT/HCPCS: 93010 ==

== ENCOUNTER → 2025-09-26 10:56 | Outpatient (BNV) | payer MEDICAID, SELFPAY | PROVIDERS: Emergency Provider Emergency Medicine; Visit Provider Radiology Diagnostic Radiology | DX: R56.9 Unspecified convulsions (principal); R06.02 Shortness of breath | CPT/HCPCS: 70450; 71045 ==

== ENCOUNTER → 2025-09-26 13:45 | Outpatient (BNV) | payer MEDICAID, SELFPAY | PROVIDERS: Admitting Provider Nurse Practitioner Acute Care; Emergency Provider Emergency Medicine; Visit Provider Nurse Practitioner Acute Care | DX: R56.9 Unspecified convulsions (principal); N18.6 End stage renal disease; I12.0 Hypertensive chronic kidney disease with stage 5 chronic kidney disease or end stage renal disease; F11.20 Opioid dependence, uncomplicated; Z99.2 Dependence on renal dialysis | CPT/HCPCS: 99223; 99239 ==

== ENCOUNTER → 2025-09-26 13:45 | Outpatient (BNV) | payer MEDICAID, SELFPAY | PROVIDERS: Admitting Provider Nurse Practitioner Acute Care; Emergency Provider Emergency Medicine; Visit Provider Psychiatry & Neurology Neurology | DX: R41.82 Altered mental status, unspecified (principal) | CPT/HCPCS: 99221 ==

== ENCOUNTER → 2025-10-03 23:59 | Outpatient (BNV) | payer MEDICAID, SELFPAY | PROVIDERS: PCP Family Medicine; Visit Provider Internal Medicine Nephrology | DX: N18.6 End stage renal disease (principal) | CPT/HCPCS: 90962 ==

== ENCOUNTER 2025-10-05 06:16 | Observation (INO) | payer MEDICAID, SELFPAY ==
[2025-10-05] VITALS (18 sets, daily range): BP systolic 120–195; BP diastolic 73–99; PULSE 70–104; RESP 16–24; TEMP 36.3–36.8; O2SAT 95–100; BMI 26.4
--- NOTE | ~2025-10-05 | CT_ITS ---
EXAMINATION: CT HEAD WITHOUT IV CONTRAST HISTORY: seizure, fall. TECHNIQUE: Unenhanced helical CT of the head was performed per standard departmental protocol. Coronal and sagittal reformats of the head were also evaluated. One or more of the following techniques was used for dose reduction: Automated exposure control, adjustment of the mA and/or kV according to patient size, use of iterative reconstruction technique. DLP: 1228 mGy-cm COMPARISON: Comparison is made with the prior examination dated 09/26/2025. FINDINGS: BRAIN: The brain parenchyma is unremarkable. There is normal palm/white differentiation. The ventricular system is normal in size and configuration. There is no mass effect or midline shift. No intra- or extra-axial fluid collections are identified. SINUSES: The visualized paranasal sinuses are clear. The mastoid air cells and middle ear cavities are well pneumatized. ORBITS: The visualized orbits are unremarkable. BONES/SOFT TISSUES: Again seen is a suboccipital soft tissue hematoma. The calvarium is intact. No suspicious lytic or sclerotic lesions. CT/CT head/brain wo IV con IMPRESSION: No acute intracranial abnormality. Electronically signed by: García Loza MD 10/05/2025 11:14 AM [facility]
--- NOTE | 2025-10-05 06:29 | ECG_ITS ---
Test Reason : SEIZURE Blood Pressure : */* mmHG Vent. Rate : 82 BPM Atrial Rate : 82 BPM P-R Int : 288 ms QRS Dur : 94 ms QT Int : 416 ms P-R-T Axes : 75 56 90 degrees QTcB Int : 486 ms Sinus rhythm with 1st degree A-V block Possible Left atrial enlargement Prolonged QT Abnormal ECG When compared with ECG of 26-Sep-2025 11:02, No significant change was found Referred By: Gabriel Schmidt Electronically Signed By: SHIVANI ALATORRE
[2025-10-05 06:55] LABS: Hematocrit 34.9 % (42.0-52.0); Hemoglobin 11.4 g/dl (14.0-18.0); Imm Gran Abs Auto 0.03 X10*3/uL (0.00-0.03); Imm Gran Pct Auto 0.4 % (0.0-0.4); Lymphocytes Absolute Auto 1.5 X10*3/uL (1.2-4.9); MANUAL DIFF FLAG NO; Mean Corpuscular HGB Conc 32.7 g/dl (31.0-36.0); Mean Corpuscular Hemoglobin 30.1 pg (27.0-33.0); Mean Corpuscular Volume 92.1 fL (80.0-98.0); NRBC Abs Auto 0.000 X10*3/uL (0.0-0.012); NRBC Pct Auto 0.0 /100WBC (0.0-0.2); Platelet Count 208 X10*3/uL (160-400); Red Blood Count 3.79 X10*6/uL (4.60-5.80); White Blood Count 8.5 X10*3/uL (4.8-10.8)
--- NOTE | 2025-10-05 06:56 | ED.SEIZURE ---
HPI - Seizure General Chief Complaint: Seizure Stated Complaint: SEIZURES NO HX FALL Time Seen by Provider: 10/05/25 06:27 Source: patient and EMS Mode of arrival: EMS Limitations: no limitations History of Present Illness ED Provider: HPI Narrative: 45-year-old male end-stage renal disease right Dietrich catheter on Friday, had an unwitnessed seizure before going to dialysis, according to EMS his mom heard him fall and he was noted to be altered and postictal by time he arrived to the ER he was alert and oriented x4, patient endorses smoking cocaine and fentanyl daily but states he never does any drugs before going to dialysis he does drugs after coming back from dialysis no injection reported, he was admitted for this fairly recently and left AMA, denies chest pain abdominal pain has had no nausea or vomiting, no diarrhea, denies loss of bowel or bladder function denies biting his tongue at this time Seizure History: Yes Related Data Previous Rx's ?Medication ?Instructions ?Recorded Dakins solution 11/06 strength #1 ea 09/25/24 pen needle, diabetic 32 gauge x #100 ea 09/25/2411/06 blood sugar diagnostic (FreeStyle #100 ea 09/29/24 Lite Strips) blood-glucose meter #1 ea 09/29/24 lancets 28 gauge (FreeStyle #100 ea 09/29/24 Lancets) buprenorphine 8 mg-naloxone 2 mg 1 film sublingual TID 30 days #90 08/01/25 sublingual film (Suboxone) ea Allergies Allergy/AdvReac Type Severity Reaction Status Date / Time No Known Allergies (No Known Allergy Verified 10/05/25 06:26 Allergies*) Review of Systems Constitutional: Constitutional: Reports as per HPI [facility] Past Medical History Medical History (Updated 10/06/25 @ 06:51 by Tanmay Lake MD) PVD (peripheral vascular disease) ESRD (end stage renal disease) Diabetic skin ulcer Opioid use disorder, severe, dependence Anemia in chronic kidney disease (CKD) ESRD (end stage renal disease) on dialysis Cardiomyopathy Pericardial effusion Leukocytosis Transfusion history Atrial flutter, paroxysmal COPD (chronic obstructive pulmonary disease) Constipation Callus of foot Seizure Polysubstance abuse CKD (chronic kidney disease) stage 3, GFR 30-59 ml/min Foot osteomyelitis, left Amputation of toe of right foot Diabetic ulcer of right foot Sleep apnea Diabetes HTN (hypertension) Surgical History History of surgery on arm History of surgery History of surgery 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 History of surgical procedure (~04/24/23) Social History Social History Household Members: Other Household Members Other:: Mom Housing: Unknown / Unable to assess Are you a primary janitor caretaker to a significant other at home: No Alcohol intake: former 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 Patient Tobacco Use Status: Tobacco use Unknown Tobacco use type: Cigarette Cigarette Packs Per Day: 0.5 Cigarettes Per Day: 6 Years Smoked: 33 e-Cigarette/Vaping Use: Currently Using Second Hand Smoke Exposure: Yes Substance Use Type: Crack/Cocaine and Heroin Advance Directives: No Advance Directives Information Provided: Yes Do you have a plan to hurt others: No Plan service: No Physical Exam Exam: Exam: ?General: ??Looks older than stated age e ?Pupils 3 mm reactive bilaterally, he has small ulceration to the tip of his tongue to the left, without active bleeding of the airway No facial trauma no head trauma Neck: No midline tenderness no paraspinal tenderness ?CV: RRR, no obvious murmurs appreciated Right Dietrich catheter insertion site clean and dry ?Resp: ?No wheezing rales rhonchi no stridor moving air well Abd: ?Bowel sounds are present, no tenderness no rebound no rigidity MSK: FROM, strength 5/5 all extremities Skin: Right BKA, left transmetatarsal amputations, with callus to the bottom of left foot ?Neuro: ?Alert and oriented x3, moving remaining upper and lower extremities symmetrically, no obvious facial asymmetry noted, cranial nerves 2-12 intact Vital Signs: Vital Signs: Last Vital Signs Temp 97.1 F 10/06/25 07:13 Pulse 94 10/06/25 07:13 Resp 20 10/06/25 07:13 BP 198/102 H 10/06/25 07:13 Pulse Ox 100 10/06/25 07:13 O2 Del Method Room Air 10/06/25 07:13 O2 Flow Rate 2 10/06/25 06:00 BMI result Body Mass Index 26.4 Course Reevaluation(s) Reevaluation #1: 4:27 PM 10/05/2025 (Dr. David Marquez): I assumed care at this time patient is complicated with a history of end-stage renal disease missed dialysis due to convulsive episode. Possibly seizures this is a fairly new onset that he has had these. Was loaded with Keppra and sedated due to concerns of lacking capacity due to postictal state and asking to leave. Family contacted he was recent dated which is a current state he is in. No traumatic injuries identified. No acute medical emergency identified. No hyperkalemia. I will follow up with the patient's studies and we assess Reevaluation #2: 6:51 PM 10/05/2025 (Dr. David Marquez): Patient still appears delirious. Slightly tachycardic. ECG reviewed with persistent prolonged MO this is in fact shorter than it was on previous visits. No telemetry events on review. We will continue to monitor Reevaluation #3: Jaya: The patient was signed out to me by the previous emergency physician. The patient is a polysubstance drug abuser (apparently he does not use IV drugs but smokes cocaine and fentanyl) who also has a history of chronic renal failure and does Friday, Friday, Friday dialysis. He has also had seizures in the past. As far as I can tell he is not on any definite antiepileptic regimen. The patient apparently had a seizure at home yesterday, about 24 hours ago, prior to his Friday dialysis. He was brought to the hospital here instead of going to dialysis. Here in the hospital yesterday he at 1st seemed somnolent. He got a small dose of naloxone. After that he was sufficiently agitated that he required sedation with haloperidol and lorazepam. Ever since that sedation he has remained somnolent and often restless. He was monitored over the afternoon and evening shift in hopes that his mental status would normalize and he could be discharged (the patient has a history of frequently signing out AMA from the hospital when admitted). However the patient's mental status did not clear. He remained somewhat strangely restless. When I assumed care he was given a dose of IV diazepam with some improvement in his restlessness. The patient seems capable of being aroused and briefly interacting in his somewhat reasonable manner but then he seems to doze off again. Whether this is some kind of postictal effect or whether this is all a result of the sedative medications including the diazepam I ordered is not clear. He became hypertensive as well. I think this is not new for him. He was given nitro paste and oral clonidine. I repeated labs this morning to see if there was any significant acute change. His hemoglobin has gone up over the last 24 hours, perhaps this is further evidence of some degree of dehydration. His white blood count remains normal. A venous blood gas this morning is less concerning than yesterday's venous blood gas. His chemistries suggests some worsening dehydration. My overall impression is that the patient will not be awake enough today to be discharged to go to outpatient dialysis. I therefore think the patient needs to be admitted so he can get dialysis here. Perhaps his metabolic encephalopathy will clear with dialysis. He will be admitted to the hospitalist service. Medications Administered Generic Name Dose Route Start Last Admin Trade Name Freq PRN Reason Stop Dose Admin Heparin Sodium (Porcine) 5,000 unit 10/06/25 06:45 10/06/25 07:20 Heparin Sodium,Porcine 5,000 Unit/Ml Vial SUBCUT 5,000 unit Q8H LYSSA Administration Insulin Human Lispro 0 unit 10/06/25 07:30 10/06/25 07:26 Insulin Lispro 100 Unit/Ml 3 Ml Vial SUBCUT Not Given QIDACHS LYSSA Protocol Sodium Chloride 3 ml 10/06/25 08:00 10/06/25 07:26 0.9 % Sodium Chloride Flush 3 Ml Syringe IVFLUSH 3 ml QSHIFT LYSSA Administration Discontinued Medications Generic Name Dose Route Start Last Admin Trade Name Freq PRN Reason Stop Dose Admin Clonidine HCl 0.1 mg 10/06/25 06:08 10/06/25 06:27 Clonidine Hcl 0.1 Mg Tablet PO 10/06/25 06:09 0.1 mg ONCE ONE Administration Protocol Clonidine HCl 0.1 mg 10/06/25 06:49 10/06/25 07:21 Clonidine Hcl 0.1 Mg Tablet PO 10/06/25 06:50 0.1 mg ONCE ONE Administration Protocol Diazepam 10 mg 10/06/25 02:43 10/06/25 02:55 Diazepam 10 Mg/2 Ml Cartridge IVPUSH 10/06/25 02:44 10 mg STAT STA Administration Haloperidol Lactate 5 mg 10/05/25 12:15 10/05/25 12:15 Haloperidol Lactate 5 Mg/Ml Vial IM 10/05/25 12:16 5 mg STAT STA Administration Levetiracetam 3,000 mg/ Sodium 130 mls @ 520 mls/hr 10/05/25 06:29 10/05/25 07:24 Chloride IV 10/05/25 06:43 Infused ONCE ONE Infusion Lorazepam 2 mg 10/05/25 16:45 10/05/25 12:15 Lorazepam 2 Mg/Ml Vial IVPUSH 10/05/25 16:46 2 mg ONCE ONE Administration Naloxone HCl 0.1 mg 10/05/25 11:34 10/05/25 11:48 Naloxone Hcl 0.4 Mg/Ml Vial IVPUSH 10/05/25 11:35 0.1 mg STAT STA Administration Nitroglycerin 1 inch 10/06/25 06:06 10/06/25 06:27 Nitroglycerin 2 % Oint 1 Gm Packet TRANSDERMA 10/06/25 06:07 1 inch ONCE ONE Administration Nitroglycerin 1 inch 10/06/25 06:49 10/06/25 07:15 Nitroglycerin 2 % Oint 1 Gm Packet TRANSDERMA 10/06/25 06:50 1 inch ONCE ONE Administration Medical Decision Making Medical Decision Making MDM Narrative: 6:59 AM 10/05/2025 (Dr. Gabriel Schmidt): EMS reported that initially patient was postictal, he presented alert and oriented, he was admitted for seizure workup and left AMA before EEG was able to be completed, I did load him with levetiracetam that came up to 3 g for recommended loading dose for his weight, that is to prevent further seizures while in the emergency department, anticipating admission we will see whether he is willing to stay, we will obtain imaging to make sure there was no traumatic brain injury, last time he did have CT so there was no underlying brain masses, likely substance use is contributing to his presentation, he does have end-stage renal disease on hemodialysis which places him at high-risk for electrolyte derangements including potassium, magnesium, his initial ECG however reassuring without underlying dysrhythmia or changes to suspect hyperkalemia or QT prolongation to suspect sodium channel blockade from any substances such as cocaine 11:33 AM 10/05/2025 (Dr. Gabriel Schmidt): Patient has remained arousable to verbal stimulus but exhibiting signs of substance use , I will provide gentle dosage of Narcan so I can have a discussion with him regarding his workup and disposition I would like to have this patient admitted he has left AMA before CT/CT head/brain wo IV con IMPRESSION: No acute intracranial abnormality. 11:56 AM 10/05/2025 (Dr. Gabriel Schmidt): Patient received 0.1 mg of naloxone very gentle dose and he was arousable to verbal stimulus but now actually much more alert and we had a conversation, he would like to leave AMA, he is not interested in detox, he is not interested in admission, it is difficult to determine whether he has substance induced seizures or actual epilepsy, I have placed a call to his mother, but at this time patient does not have capacity to make a decision, he is agitated, trying to rip out his IV, we will order IV Haldol and Ativan 12:26 PM 10/05/2025 (Dr. Gabriel Schmidt): Spoke to patient's mom she is aware that patient has been we sedated, she will come around 230, at that point we will can make a decision whether she can come pick him up or he is going to be agreeable for admission 2:19 PM 10/05/2025 (Dr. Gabriel Schmidt): Patient's mom is here we spoke quite a bit about his drug use and presentation to the ER, for now he is still sedated and we will await for clinical sobriety then can offer admission for seizures and care team for detox if he would be interested but unlikely, anticipate his care will be signed out to incoming provider after the end of my shift Of note patient received 2 mg of intravenous Ativan however I have not been able to order it though was available in the epiphysis, it is states that this medication is out of stock Differential Diagnosis Differential Diagnoses: The differential diagnosis associated with the presentation includes (Substance use breakthrough seizure, head injury, syncope, anemia, dehydration, electrolyte derangements, hyponatremia, hypoglycemia) Admission/Observation Consideration of admission/observation: Escalation of care including admission/observation considered Lab Data MDM Lab Attestation statement: I reviewed the patient's lab results. 10/06/25 05:37 10/06/25 05:37 Labs: Lab Results 10/05/25 10/05/25 10/06/25 Range/Units 06:49 12:22 01:18 WBC 8.5 (4.8-10.8) X10*3/uL RBC 3.79 L (4.60-5.80) X10*6/uL Hgb 11.4 L (14.0-18.0) g/dl Hct 34.9 L (42.0-52.0) % MCV 92.1 (80.0-98.0) fL MCH 30.1 (27.0-33.0) pg MCHC 32.7 (31.0-36.0) g/dl RDW 14.6 (11.0-16.0) % Plt Count 208 (160-400) X10*3/uL MPV 10.6 (9.4-12.4) fL Immature Gran % (Auto) 0.4 (0.0-0.4) % Neut % (Auto) 66.8 (45-73) % Lymph % (Auto) 17.6 L (20-40) % Bourbon % (Auto) 9.8 (2-11) % Eos % (Auto) 5.0 H (0-4) % Baso % (Auto) 0.4 (0-2) % Lymph # (Auto) 1.5 (1.2-4.9) X10*3/uL Bourbon # (Auto) 0.8 (0.1-1.2) X10*3/uL Eos # (Auto) 0.4 (0.0-0.4) X10*3/uL Baso # (Auto) 0.0 (0.0-0.2) X10*3/uL Abs Immat Gran (auto) 0.03 (0.00-0.03) X10*3/uL Absolute Neuts (auto) 5.7 (2.0-8.3) x10*3/uL Absolute Nucleated RBC 0.000 (0.0-0.012) X10*3/uL Nucleated RBC % (auto) 0.0 (0.0-0.2) /100WBC VBG pH (7.32-7.43) VBG pCO2 mmHg VBG pO2 mmHg VBG HCO3 (22-26) mmol/L VBG O2 Saturation % VBG Base Excess mmol/L Sodium 135 (135-145) mmol/L Potassium 4.4 (3.3-5.1) mmol/L Chloride 96 (96-108) mmol/L Carbon Dioxide 24 (22-29) mmol/L Anion Gap 19 (12-20) BUN 52 H (9-16) mg/dL Creatinine 7.86 H* (0.5-1.4) mg/dL Estim Creat Clear Calc 11.6 Estimated GFR 7 POC Glucose 89 (60-115) mg/dL Random Glucose 133 H (60-115) mg/dL Calcium 8.6 (8.4-10.2) mg/dL Magnesium 2.6 (1.6-2.6) mg/dL Total Bilirubin 0.3 (0.0-1.0) mg/dL Direct Bilirubin (0.0-0.5) mg/dL AST 36 (5-37) U/L ALT 9 (0-40) U/L Alkaline Phosphatase 99 (39-117) U/L Ammonia (13-55) umol/L Total Protein 8.4 H (6.5-8.0) g/dL Albumin 3.6 (3.5-5.0) g/dL Urine Opiates Screen POSITIVE H (Not Detect) Ur Buprenorphine Scrn Not Detected (Not Detect) ng/mL Ur Oxycodone Screen Not Detected (Not Detect) ng/mL Urine Methadone Screen Not Detected (Not Detect) ng/mL Urine Fentanyl Screen POSITIVE H (Not Detect) Ur Barbiturates Screen Not Detected (Not Detect) Ur Phencyclidine Scrn Not Detected (Not Detect) Ur Amphetamines Screen Not Detected (Not Detect) U Benzodiazepines Scrn Not Detected (Not Detect) Urine Cocaine Screen POSITIVE H (Not Detect) U Marijuana (THC) Screen Not Detected (Not Detect) 10/06/25 10/06/25 Range/Units 05:37 05:45 WBC 10.4 (4.8-10.8) X10*3/uL RBC 4.65 D (4.60-5.80) X10*6/uL Hgb 13.8 L D (14.0-18.0) g/dl Hct 41.9 L D (42.0-52.0) % MCV 90.1 (80.0-98.0) fL MCH 29.7 (27.0-33.0) pg MCHC 32.9 (31.0-36.0) g/dl RDW 14.6 (11.0-16.0) % Plt Count 262 D (160-400) X10*3/uL MPV 10.8 (9.4-12.4) fL Immature Gran % (Auto) 0.2 (0.0-0.4) % Neut % (Auto) 80.2 H (45-73) % Lymph % (Auto) 12.8 L (20-40) % Bourbon % (Auto) 5.7 (2-11) % Eos % (Auto) 0.7 (0-4) % Baso % (Auto) 0.4 (0-2) % Lymph # (Auto) 1.3 (1.2-4.9) X10*3/uL Bourbon # (Auto) 0.6 (0.1-1.2) X10*3/uL Eos # (Auto) 0.1 (0.0-0.4) X10*3/uL Baso # (Auto) 0.0 (0.0-0.2) X10*3/uL Abs Immat Gran (auto) 0.02 (0.00-0.03) X10*3/uL Absolute Neuts (auto) 8.3 (2.0-8.3) x10*3/uL Absolute Nucleated RBC 0.000 (0.0-0.012) X10*3/uL Nucleated RBC % (auto) 0.0 (0.0-0.2) /100WBC VBG pH 7.41 (7.32-7.43) VBG pCO2 32 mmHg VBG pO2 96 mmHg VBG HCO3 21 L (22-26) mmol/L VBG O2 Saturation 98.0 % VBG Base Excess -2.6 mmol/L Sodium 139 (135-145) mmol/L Potassium 4.7 (3.3-5.1) mmol/L Chloride 103 (96-108) mmol/L Carbon Dioxide 19 L (22-29) mmol/L Anion Gap 22 H (12-20) BUN 58 H (9-16) mg/dL Creatinine 9.02 H* (0.5-1.4) mg/dL Estim Creat Clear Calc 10.1 Estimated GFR 6 POC Glucose (60-115) mg/dL Random Glucose 89 (60-115) mg/dL Calcium 8.9 (8.4-10.2) mg/dL Magnesium 2.9 H (1.6-2.6) mg/dL Total Bilirubin 0.4 (0.0-1.0) mg/dL Direct Bilirubin 0.2 (0.0-0.5) mg/dL AST 40 H (5-37) U/L ALT 6 (0-40) U/L Alkaline Phosphatase 92 (39-117) U/L Ammonia 34 (13-55) umol/L Total Protein 8.6 H (6.5-8.0) g/dL Albumin 3.7 (3.5-5.0) g/dL Urine Opiates Screen (Not Detect) Ur Buprenorphine Scrn (Not Detect) ng/mL Ur Oxycodone Screen (Not Detect) ng/mL Urine Methadone Screen (Not Detect) ng/mL Urine Fentanyl Screen (Not Detect) Ur Barbiturates Screen (Not Detect) Ur Phencyclidine Scrn (Not Detect) Ur Amphetamines Screen (Not Detect) U Benzodiazepines Scrn (Not Detect) Urine Cocaine Screen (Not Detect) U Marijuana (THC) Screen (Not Detect) Independent Interpretation I performed an independent interpretation of an: EKG (82 beats per minute otherwise normal ECG without dysrhythmia, AV juan jose blocks or ST-T changes to suspect underlying ACS, my independent interpretation) Radiology Impression Discussion of test interpretation with radiology: I have reviewed the radiologist's reading. Critical Care Time Critical Care Time Critical Care Time: Yes Total Critical Care Time: 65 Attestation: Time is exclusive of separately billable procedures. Time includes: direct patient care, patient reassessment, coordination of patient care, interpretation of data (laboratory data, pulse oximetry, arterial blood gases and chest xrays), review of patient's medical records, medical consultation and documentation of patient care. Procedures excluded from critical care time: central intravenous line placement and electrocardiography. Discharge Plan Discharge Clinical Impression: Seizure, Polysubstance abuse, Chronic renal failure, Metabolic encephalopathy, Hypertension Patient Disposition: Admitted As Inpatient
[2025-10-05] MEDS: levETIRAcetam 3,000 MG in 0.9 % Sodium Chloride 100 ML 520 MG IV (07:06)
[2025-10-05 07:17] LABS: Alanine Aminotransferase 9 U/L (0-40); Albumin Level 3.6 g/dL (3.5-5.0); Alkaline Phosphatase 99 U/L (39-117); Anion Gap 19 (12-20); Aspartate Amino Transferase 36 U/L (5-37); Blood Urea Nitrogen 52 mg/dL (9-16); Calcium 8.6 mg/dL (8.4-10.2); Carbon Dioxide 24 mmol/L (22-29); Chloride 96 mmol/L (96-108); Creatinine Clr Calc Pharmacy 11.6; Estimated Glomerular Filt Rate 7; Magnesium 2.6 mg/dL (1.6-2.6); Potassium 4.4 mmol/L (3.3-5.1); Sodium 135 mmol/L (135-145); Total Protein 8.4 g/dL (6.5-8.0)
--- OUTSIDE RECORDS SUMMARY | 2025-10-05 08:20 | XMS_ITS | Encounter Summary ---
Author Organization [employer] Address [address] [facility] [address] [place] [address] Care Team Providers Care Online Services Manager Name Role Phone Deandre Riddle RN Unavailable [phone] DavidTalya Unavailable Reason for Visit * Reason Comments Med Refill Encounter Details Date Type Department Care Team ([facility] st Contact Info) Description 06/13/2025 Refill [facility] MED & PEDS [address] [place] [address] Araseli Rucker, ANP [address] [place] [address] Other insomnia Social History Tobacco Use Types [...] insomnia documented in this encounter Care Teams Online Services Manager Relationship Specialty Start Date End Date Deandre Riddle RN [address] [place] [id number] Registered Nurse Family Medicine 09/05/25 Talya Hernandez 09/05/25 documented as of this encounter
--- OUTSIDE RECORDS SUMMARY | 2025-10-05 08:20 | XMS_ITS | Encounter Summary ---
Author Organization [employer] Address [address] [facility] [address] [place] [address] Care Team Providers Care Hvac Mechanic Name Role Phone Deandre Riddle RN Unavailable [phone] DavidTalya Unavailable Reason for Visit * Reason Comments Med Refill Encounter Details Date Type Department Care Team ([facility] st Contact Info) Description 07/25/2025 Refill [facility] MED & PEDS [address] [place], [place] [phone] Cristina Stover MD [address] [place] [address] Type 2 diabetes mellitus with stage 3 [...] (HCC) documented in this encounter Care Teams Hvac Mechanic Relationship Specialty Start Date End Date Deandre Riddle RN [address] [place] [address] [place] [address] Registered Nurse Family Medicine 09/05/25 Talya Hernandez 09/05/25 documented as of this encounter
--- OUTSIDE RECORDS SUMMARY | 2025-10-05 08:20 | XMS_ITS | Encounter Summary ---
Author Organization [employer] Address [address] [facility] [address] [place] [address] Care Team Providers Care Can Vacuum Tester Name Role Phone Deandre Riddle RN Unavailable [phone] DavidTalya Unavailable Reason for Visit * Reason Comments Med Refill Encounter Details Date Type Department Care Team ([facility] st Contact Info) Description 07/27/2025 Refill [facility] MED & PEDS [address] [place] [address] Cristina Stover MD [address] [place] [address] Type 2 diabetes mellitus with stage 3 chronic kidney disease, with long-term current use of insulin, unspecified whether stage 3a or 3b CKD (CMS/HCC); Diabetes mellitus, stable ([facility]/HCC) Social History Tobacco Use Types Packs/Day Years [...] a refill for FREESTYLE LITE test strip. Drop Hammer Mechanic advised he not a pt we us as he has not been seen since 07/14/2023 and that he need to establish care again in regard of him to gethis test strip. Drop Hammer Mechanic toñito pt twice, no responded documented in [...] uncontrolled documented in this encounter Care Teams Can Vacuum Tester Relationship Specialty Start Date End Date Deandre Riddle RN [address] [place] [address] [place] [address] Registered Nurse Family Medicine 09/05/25 Talya Hernandez 09/05/25 documented as of this encounter
--- OUTSIDE RECORDS SUMMARY | 2025-10-05 08:20 | XMS_ITS | Encounter Summary ---
Author Organization [employer] Address [address] [facility] [address] [place] [address] Care Team Providers Care Fly Winder Name Role Phone Deandre Riddle RN Unavailable [phone] DavidTalya Unavailable Reason for Visit * Reason Comments Med Refill Encounter Details Date Type Department Care Team ([facility] st Contact Info) Description 01/26/2025 Refill [facility] MED & PEDS [address] [place] [address] Araseli Rucker, ANP [address] [place] [address] Other insomnia Social History Tobacco Use Types [...] insomnia documented in this encounter Care Teams Fly Winder Relationship Specialty Start Date End Date Deandre Riddle RN [address] [place] [id number] Registered Nurse Family Medicine 09/05/25 Talya Hernandez 09/05/25 documented as of this encounter
--- OUTSIDE RECORDS SUMMARY | 2025-10-05 08:20 | XMS_ITS | Encounter Summary ---
Author Organization [employer] Address [address] [facility] [address] [place] [address] Care Team Providers Care Senior Applications Engineer Name Role Phone Deandre Riddle RN Unavailable [phone] Talya Hernandez Unavailable Encounter Details Date Type Department Care Team (Late st Contact Info) Description 07/29/2025 Telephone [facility] MED[facility]INE [address] [place] [address] Kyle Mitchell MD [address] [place], [place] [phone] Social History Tobacco Use Types Packs/Day Years [...] t he electric, gas, oil or water [employer] threatened to shut off services in your [...] on filedocumented in this encounter Care Teams Senior Applications Engineer Relationship Specialty Start Date End Date Deandre Riddle RN [address] [place] [id number] Registered Nurse Family Medicine 09/05/25 Talya Hernandez 09/05/25 documented as of this encounter
--- OUTSIDE RECORDS SUMMARY | 2025-10-05 08:21 | XMS_ITS | Clinical Summary ---
Author Organization [employer] Address [address] [facility] [address] [place] [address] Care Team Providers Care Smoke Jumper Name Role Phone Deandre Riddle RN Unavailable [phone] DavidFideliapamella Unavailable Allergies No known active [...] unspecified whether stage 3a or 3b CKD ([facility]) USE THREE TIMES DAILY DIRECTED 100 each 11 4 Active FREESTYLE LITE test stripIndications: Type 2 diabetes mellitus with stage 3 chronic kidney disease, with long-term current use of insulin, unspecified whether stage 3a or 3b CKD ([facility]) TEST BLOOD SUGAR THREE TIMES DAILY 100 strip 11 4 Active TRUEplus Lancets 33G miscIndications:D iabetes mellitus, stable ([facility]) TEST BLOOD SUGAR THREE TIMES [...] 08/01/2025 Acidosis 08/01/2025 Acute CVA (cerebrovascular accident) ([facility]) 0 08/01/2025 Acute hypokalemia 08/01/2025 Acute hypoxemic respiratory failure ([facility]) Amputation of toe of right foot 08/01/2025 Anasarca 08/01/2025 Anemia in chronic kidney disease (CKD) Anemia 08/01/2025 Bacteremia 08/01/2025 Cardiomyopathy 08/01/2025 Callus of foot 08/01/2025 Cellulitis 08/01/2025 Empyema ([facility]) 08/01/2025 Cocaine intoxication ([facility]) 08/01/2025 Confusion 08/01/2025 Constipation 08/01/2025 COPD exacerbation ([facility]) 08/01/2025 Decubitus ulcer 08/01/2025 Dehydration 08/01/2025 Diabetic skin ulcer 08/01/2025 Diabetic ulcer of right foot 08/01/2025 Diabetic wet gangrene of the foot 08/01/2025 Elevated troponin 08/01/2025 End stage renal failure on dialysis ([facility]) Foot osteomyelitis, left ([facility]) 08/01/2025 History of endocarditis 08/01/2025 Hyperglycemia 08/01/2025 Hyperphosphatemia 08/01/2025 Hypocalcemia 08/01/2025 Leukocytosis 08/01/2025 MRSA bacteremia 08/01/2025 Myoclonic disorder 08/01/2025 Necrotic eschar ([facility]) 08/01/2025 Need for acute hemodialysis 08/01/2025 Open wound 08/01/2025 Opiate withdrawal ([facility]) 08/01/2025 Panic attack 08/01/2025 Pericardial effusion 08/01/2025 Pleural effusion, bilateral 08/01/2025 Pseudohyponatremia 08/01/2025 Removal of staple 08/01/2025 Sepsis ([facility]) 08/01/2025 Seizure ([facility]) 08/01/2025 Syncope 08/01/2025 Toxic metabolic encephalopathy 08/01/2025 Volume overload 08/01/2025 Paroxysmal atrial flutter ([facility]) 08/01/2025 Hyperglycemia due to type 2 diabetes mellitus HTN (hypertension) 08/01/2025 Acute renal failure 08/01/2025 Chronic kidney failure 08/01/2025 CKD (chronic kidney disease) stage 3, GFR 30-59 ml/min ([facility]) 08/01/2025 Type 2 diabetes mellitus 08/01/2025 Opioid use disorder, severe, dependence ([facility] ) 08/01/2025 Atrial flutter ([facility]) 10/05/2024 Overview (10/05/2024): -dx in [facility] 09/2024 Primary insomnia 07/14/2023 Assessment & Plan (07/14/2023 10:26 PM EDT): Start trazodone Counseled re tight control of HTN, DM and avoid recreational drug use. FU with PCP Chronic renal disease, stage IV ([facility]) 2022 Overview (06/23/2023): -With significant [...] home is Coronary artery disease invo lving [place] coronary artery of [place] heart without angina pectoris 06/23/2023 Osteomyelitis 06/23/2023 Tobacco dependence 06/23/2023 Overview (06/23/2023): -motivational interviewing done PAD (peripheral artery disease) 06/23/2023 Assessment & Plan (07/14/2023 10:32 PM EDT): Sec to DM, HTN, smoking, cocaine use. 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 Has fu appt [...] (08/01/2025): -motivational interviewing done Uncomplicated opioid dependence ([facility]) 2022 Polysubstance abuse 06/04/2023 Assessment [...] with his mother) . Right BKA infection ([facility]) 06/04/2023 Overview (06/23/2023): Right foot partal amputation 04/18/2023 due to right foot gangreen with osteomyelitis. Dischargted 05/01/23 with ertapenem via PICC line for osteomyelitis. Returned to [facility] with AMS and underwent right BKA 05/2023 Assessment & Plan (07/14/2023 10:33 PM EDT): Right BKA stump Is healing properly, urged to fu with vascular surgery. Will need PT /OT eval for right leg prosthesis fitting I will rx a transport wheelchair for mobility Altered mental status 06/04/2023 Overview (06/04/2023): Admitted 05/04/23 to [facility] for encephalopathy thought to be cocaine related. he was discharged against medical advice. Seen in [facility] 05/09/23 with repot of myoclonic spasms. Urine drug screen positive for opiates, fentanyl and cocaine.seen 05/11/23 in [facility] for continued abnormal movents and discharged home. Admitted to [facility] 05/12/23-05/14/23 for possible seizure activity. He presented [...] 4w. Gastroesophageal reflux disease 05/04/2012 Morbid obesity ([facility]) 05/04/2012 Obstructive sleep apnea syndrome [...] 03/30/2021 06/23/2023 Stage 3 chronic kidney disease ([facility]) 03/30/2021 06/23/2023 Encounters Date Type Department Care Team Description 09/28/2025 Patient Outreach [address] [address] Talya Hernandez 09/27/2025 Patient Outreach [address] [address] Talya Hernandez Care Coordination (C3/W Talya Hernandez, outreach #[email or web address] ) 09/27/2025 Results Follow-Up [facility] [address] [place] [phone] Provider, Generic External Data XR Chest 1 View 09/26/2025 Orders Only GENERIC EXTERNAL DATA DEPARTMENT Provider, Generic External Data 09/21/2025 Patient Outreach [address] [address] Talya Hernandez Care Coordination (C3/W Talya Hernandez, initial outreach attempt_lvm) 09/21/2025 Patient Outreach [address] [address] Talya Hernandez 09/12/2025 Patient Outreach [address] [address] Kyle Mitchell MD Transition Of Care (Tcm) (HDF- Unscheduled ) 09/05/2025 Patient Outreach [address] [address] Talya Hernandez Care Coordination (C3/W Talya Hernandez, Chart review) 09/05/2025 Patient Outreach [facility] [address] [place] [address] Deandre Riddle, RN Care Coordination ([facility]- chart review) 09/05/2025 Patient Outreach [address] [address] Kristin Flores, JOVITA 09/04/2025 Orders Only GENERIC EXTERNAL DATA DEPARTMENT Provider, Generic External Data 08/23/2025 Results Follow-Up [address] [address] Cristina Stover MD CBC, Prothrombin Time-INR, Partial Thromboplastin Time, Activated (APTT), Additional followed-up results: 3 08/22/2025 Orders Only GENERIC EXTERNAL DATA DEPARTMENT Provider, Generic External Data 08/02/[address] [address] Kadie Guzmán MD No Show 08/01/2025 Telephone [facility] [address] [place] [address] Ivet Zhang MA chart prep 07/29/[address] [address] Kyle Mitchell MD 07/27/2025 Refill [facility] [address] [place] [address] Cristina Stover MD Type 2 diabetes mellitus with stage 3 chronic kidney disease, with long-term current use of insulin, unspecified whether stage 3a or 3b CKD (CMS/HCC); Diabetes mellitus, stable (CMS/HCC) 07/25/2025 Refill [facility] [address] [place] [address] Cristina Stover MD Type 2 diabetes mellitus with stage 3 chronic kidney disease, with long-term current use of insulin, unspecified whether stage 3a or 3b CKD (CMS/HCC) 07/22/2025 Orders Only [facility] External Provider, [facility] from Last 3 Months Immunizations Immunization Administration [...] Care Plan Weekly blood pressure task No Deandre Riddle, RN Weekly blood pressure task Care Plan Weekly blood pressure task No Deandre Riddle, JOVITA Patient has chronic kidney disease Care Plan Patient has chronic kidney disease No Deandre Riddle, RN Patient has chronic kidney disease Care Plan Patient has chronic kidney disease No Deandre Ridlde RN Weekly blood pressure task Care Plan Weekly [...] disease, with long-term current use of insulin ([facility]) ZZZ HISTORICAL MICROALBUMIN, RANDOM Routine [...] included. Opiate Screen Urine POSITIVE(A) Not Detect [facility] Comment:Opiate cut-off is 30 0 ng/mL.Positive results are unconfirmed and should not be used fornon-medical purposes. Barbiturates, Urine Not Detected Not Detect [facility] Comment:Barbiturate cut-off is 200 ng/mL.Positive results are unconfirmed and should not be used fornon-medical purposes. Phencyclidine Screen Urine Not Detected Not Detect [facility] Comment:Phencyclidine cut-of f is 25 ng/mL.Positive results are unconfirmed and should not be used fornon-medical purposes. Amphetamine Screen Urine Not Detected Not Detect [facility] Comment:Amphetamine cut-off is 1000 ng/mL.Positive results are unconfirmed and should not be used fornon-medical purposes. Benzodiazepines Screen Urine Not Detected Not Detect [facility] Comment:Benzodiazepine cut-o ff is 200 ng/mL.Positive results are unconfirmed and should not be used fornon-medical purposes. Cocaine Screen Urine POSITIVE(A) Not Detect [facility] Comment:Cocaine cut-off is 3 00 ng/mL.Positive results are unconfirmed and should not be used fornon-medical purposes. Cannabinoid Screen Urine Not Detected Not Detect [facility] Comment:Cannabinoid cut-off is 50 ng/mL.Positive results are unconfirmed and should not be used fornon-medical purposes. Methadone Screen, Urine Not Detected Not Detect ng/mL [facility] Comment:Methadone cut-off is 300 ng/mL.Positive results are unconfirmed and should not be used fornon-medical purposes. FENTANYL URINE POSITIVE(A) Not Detect [facility] Comment:Fentanyl cut-off is 1 ng/mL.Positive results are unconfirmed and should not be used fornon-medical purposes. Oxycodone Urine Screen Not Detected Not Detect ng/mL [facility] Comment:Oxycodone cut-off is 100 ng/mL.Positive results are unconfirmed and should not be used fornon-medical purposes. Buprenorphine Screen Not Detected Not Detect ng/mL [facility] Comment:Buprenorphine cut-of f is 5 ng/mL.Positive results are unconfirmed and should not be used fornon-medical purposes. 09/26/2025 1:11 PM EST 09/26/2025 1:15 PM EST us Generic External Data Provider LAB URINE ORDERAB LES Final Result Performing Organization Address City/State/[facility] Co de Phone Number [facility] [address] [place] [phone] * XR Chest 1 View (09/26/2025 12:25 PM EST) Only the most recent of2 resultswithin the time period is included. Anatomical Region Laterality Modality Chest Radiographic Hilda ging 09/26/2025 12:2 5 PM EST Narrative 09/26/2025 12:49 PM EST [address] [address] XRay Report Signed Patient: Deandre Luong MR#: [id number] 3 : 1980 Acct:[id number] Age/Sex: 45 / M ADM Date: 09/26/25 Loc: HO.ED Attending Dr: Ordering Physician: Jose Samuel MD Date of Service: 09/26/25 Procedure(s): XR chest 1V Accession Number(s): [id number] cc: Jose Samuel MD; [facility] Reason for Exam: SOB EXAMINATION: XR [...] 09/26/25 1246 DD/ 1225 TD/TT: 09/26/25 1229 Director Of Services: [place] Procedure Note Donotuseinterpreter, Image - 09/26/2025 [place] [address] XRay Report Signed Patient: Deandre Luong MMR#: [id number] 3 : 1980Acct:[id number] Age/Sex: 45 / MADM Date: 09/26/25 Loc: HO.ED Attending Dr: Ordering Physician: Jose Samuel MD Date of Service: 09/26/25 Procedure(s): XR chest 1V Accession Number(s): [id number] cc: Jose Samuel MD; [facility] Reason for Exam: SOB EXAMINATION: XR [...] 09/26/25 1246 DD/ 1225 TD/TT: 09/26/25 1229 Director Of Services: [place] [facility] External Provider IMG XR PROCEDURES Final Result * CT Head w/o Contrast (09/26/2025 11:11 AM EST) Only the most recent of2 resultswithin the time period is included. Anatomical Region Laterality Modality Head, Neck Computed Tomogra phy 09/26/2025 11:1 1 AM EST Narrative 09/26/2025 11:36 AM EST [address] [address] [address] Scan Report Signed Patient: Deandre Luong MR#: [id number] 3 : 1980 Acct:[id number] Age/Sex: 45 / M ADM Date: 09/26/25 Loc: HO.ED Attending Dr: Ordering Physician: Jose Samuel MD Date of Service: 09/26/25 Procedure(s): CT head/brain wo IV con Accession Number(s): [id number] cc: Jose Samuel MD; [facility] Report Number: [id number]: Total DLP = 839.00 mGy-cm Reason for [...] Jorge Luis Soto MD 09/26/2025 11:33 AM EST Dictated By: Jorge Luis Soto MD Signed By: <Electronically signed by Jorge Luis Soto MD in OV> 09/26/25 1133 DD/ 1111 TD/TT: 09/26/25 1119 Director Of Services: Procedure Note Donotuseinterpreter, Image - 09/26/[address] [place] [address] [address] Scan Report Signed Patient: Deandre Luong [facility]#: [id number] 3 : 1980Acct:[id number] Age/Sex: 45 / MADM Date: 09/26/25 Loc: HO.ED Attending Dr: Ordering Physician: Jose Samuel MD Date of Service: 09/26/25 Procedure(s): CT head/brain wo IV con Accession Number(s): [id number] cc: Jose Samuel MD; [facility] Report Number: [id number]: Total DLP = 839.00 mGy-cm Reason for [...] Jorge Luis Soto MD 09/26/2025 11:33 AM EST Dictated By: Jorge Luis Soto MD Signed By: <Electronically signed by Jorge Luis Soto MD in OV> 09/26/25 1133 DD/ 1111 TD/TT: 09/26/25 1119 Director Of Services: [facility] External Provider IMG CT PROCEDURES Final Result * (ABNORMAL) High Sensitivity Troponin I (09/26/2025 10:56 AM EST) Pathologist [facility] TROPONIN I HIGH SENSITIVITY 899.0(HH) <3.5 - 35.0 ng/L [facility] Comment:Critical value for t est(s): TROP Results called to and readback by: HAZEL Person calling: [email or web address] Date: 09.26.25Time: 1303The Roe high sensitivity Troponin-I results should beused in conjunction with other diagnostic information suchas ECG, clinical observations and information, and patientsymptoms to aid in the diagnosis of MN. 09/26/2025 10:5 6 AM EST 09/26/2025 12:28 PM EST us Generic External Data Provider LAB BLOOD ORDERAB LES Final Result [facility] [address] [place] [phone] * NM white blood scan (09/06/2025 12:32 PM EST) Anatomical Region Laterality Modality Nuclear Medicine 09/06/2025 12:3 2 PM EST Narrative 09/07/2025 10:36 AM EST [address] [address] Nuclear Medicine Report Signed Patient: Deandre Luong MR#: [id number] 3 : 1980 Acct:[id number] Age/Sex: 45 / M ADM Date: 09/04/25 Loc: [facility] 253-[address]: Ken Melendez MD Ordering Physician: Ken Melendez MD Date of Service: 09/06/25 Procedure(s): NM white blood scan Accession Number(s): [id number] cc: Cristina Stover MD; Ken Melendez MD [...] by: Tobias Barnett MD 09/07/2025 10:33 AM [facility] Dictated By: Tobias Barnett MD Signed By: <Electronically signed by Tobias Barnett MD in OV> 09/07/25 1033 DD/ 1232 TD/TT: 09/06/25 1700 Director Of Services: [facility] Procedure Note Donotuseinterpreter, Image - 09/07/2025 [place] [address] Nuclear Medicine Report Signed Patient: Deandre Luong [facility]#: [id number] 3 : 1980Acct:[id number] Age/Sex: 45 / MADM Date: 09/04/25 Loc: .ICU 253-[address]: Ken Melendez MD Ordering Physician: Ken Melendez MD Date of Service: 09/06/25 Procedure(s): NM white blood scan Accession Number(s): [id number] cc: Cristina Stover MD; Ken Melendez MD [...] 09/07/25 1033 DD/ 1232 TD/TT: 09/06/25 1700 Director Of Services: EFRAIN [facility] External Provider IMG NM PROCEDURES Final Result * CT Abdomen Pelvis w/ Contrast (09/04/2025 11:09 AM EST) Anatomical Region Laterality Modality Body, Pelvis, Abdomen Computed T omography 09/04/2025 11:0 9 AM EST Narrative 09/04/2025 11:11 AM EST [address] [address] [address] Scan Report Signed Patient: Deandre Luong MR#: [id number] 3 : 1980 Acct:[id number] Age/Sex: 45 / M ADM Date: 09/04/25 Loc: HO.ICU 253-[address]: Shanelle Iverson MD Ordering Physician: Ame Bragg MD Date of Service: 09/04/25 Procedure(s): CT abdomen pelvis w IV con Accession Number(s): [id number] cc: Cristina Stover MD; Ame Bragg MD Report Number: [id number]: Total DLP = 1207.00 mGy-cm Reason for [...] OV> 09/04/25 1111 DD/ 1109 TD/TT: 09/04/25 110 Director Of Services: Procedure Note Donotuseinterpreter, Image - 09/04/[address] [address] [address] Scan Report Signed Patient: Deandre Luong [facility]#: [id number] 3 : 1980Acct:[id number] Age/Sex: 45 / MADM Date: 09/04/25 Loc: HO.ICU 253-[address]: Shanelle Iverson MD Ordering Physician: Ame Bragg MD Date of Service: 09/04/25 Procedure(s): CT abdomen pelvis w IV con Accession Number(s): [id number] cc: Cristina Stover MD; Ame Bragg MD Report Number: [id number]: Total DLP = 1207.00 mGy-cm Reason for [...] 09/04/25 1111 DD/ 1109 TD/TT: 09/04/25 1109 Director Of Services: us [facility] External Provider IMG CT PROCEDURES Edited Result - Final * CT Cervical Spine w/o Contrast (09/04/2025 10:52 AM EST) Anatomical Region Laterality Modality Spine, C-spine Computed Tomogra phy 09/04/2025 10:5 2 AM EST Narrative 09/04/2025 10:53 AM EST [place] [address] CT Scan Report Signed with Addenda Patient: Deandre Luong MR#: [id number] 3 : 1980 Acct:[id number] Age/Sex: 45 / M ADM Date: 09/04/25 Loc: [facility] 253-[address]: Shanelle Iverson MD Ordering Physician: Ame Bragg MD Date of Service: 09/04/25 Procedure(s): CT cervical spine wo IV con Accession Number(s): [id number] cc: Cristina Stover MD; Ame Bragg MD Report Number: [id number]: Total DLP = 490.00 mGy-cm Reason for [...] signed by Elia Singh MD in OV> 11/02/25 1101 Addendum Cosigned By: DD/ /28/1051 TD/TT: [...] signed by Elia Singh MD in OV> 09/04/251052 DD/ 51 TD/TT: 09/04/251051 Director Of Services: Procedure Note Donotuseinterpreter, Image - 09/04/[address] [place] [address] [address] Scan Report Signed with Addenda Patient: Deandre Luong [facility]#: [id number] 3 : 1980Acct:[id number] Age/Sex: 45 / MADM Date: 09/04/25 Loc: .[facility] 253-[address]: Shanelle Iverson MD Ordering Physician: Ame Bragg MD Date of Service: 09/04/25 Procedure(s): CT cervical spine wo IV con Accession Number(s): [id number] cc: Cristina Stover MD; Ame Bragg MD Report Number: [id number]: Total DLP = 490.00 mGy-cm Reason for [...] in OV> 09/04/25 105 DD/ 105 TD/TT: 09/04/251051 Director Of Services: [facility] External Provider IMG CT PROCEDURES Edited Result - Final * CT Chest w/ Contrast (09/04/2025 10:42 AM EST) Anatomical Region Laterality Modality Body, Chest Computed Tomogra phy 09/04/2025 10:4 2 AM EST Narrative 09/04/2025 10:43 AM EST [address] [address] [address] Scan Report Signed Patient: Deandre Luong MR#: [id number] 3 : 1980 Acct:[id number] Age/Sex: 45 / M ADM Date: 09/04/25 Loc: .ICU 253-[address]: Shanelle Iverson MD Ordering Physician: Ame Bragg MD Date of Service: 09/04/25 Procedure(s): CT chest w IV con Accession Number(s): [id number] cc: Cristina Stover MD; Ame Bragg MD Report Number: [id number]: Total DLP = 448.00 mGy-cm Reason for [...] 09/04/25 1043 DD/ 1042 TD/TT: 09/04/25 1042 Director Of Services: Procedure Note Donotuseinterpreter, Image - 09/04/[address] [address] [address] Scan Report Signed Patient: Deandre Luong [facility]#: [id number] 3 : 1980Acct:[id number] Age/Sex: 45 / MADM Date: 09/04/25 Loc: .ICU 253-[address]: Shanelle Iverson MD Ordering Physician: Ame Bragg MD Date of Service: 09/04/25 Procedure(s): CT chest w IV con Accession Number(s): [id number] cc: Cristina Stover MD; Ame Bragg MD Report Number: [id number]: Total DLP = 448.00 mGy-cm Reason for [...] 09/04/25 1043 DD/ 1042 TD/TT: 09/04/25 1042 Director Of Services: [facility] External Provider IMG CT PROCEDURES Edited Result - Final * Glucose, Whole Blood (09/04/2025 7:59 AM EST) Only the most recent of2 resultswithin the time period is included. Glucose, Whole Blood 98 60 - 115 mg/dL [facility] Comment:METER #: [id number] 09/04/2025 7:59 AM EST 09/04/2025 9:09 AM EST Generic External Data Provider LAB BLOOD ORDERAB LES Final Result Performing Organization Address [facility] Co de Phone Number [facility] [address] [place] [phone] * (ABNORMAL) Partial Thromboplastin Time, Activated (APTT) (08/22/2025 9:22 AM EDT) Partial Thromboplastin Time 43.5(H) 26.7 - 34.1 SEC [facility] 08/22/2025 9:22 AM EDT 08/22/2025 9:25 AM EDT Generic External Data Provider LAB BLOOD ORDERAB LES Final Result Performing Organization Address [facility] de Phone Number [facility] [address] [place] [phone] * Prothrombin Time-INR (08/22/2025 9:22 AM EDT) Prothrombin Time 11.9 10.9 - 12.4 SEC [facility] INTERNATIONAL NORM RATIO 1.0 0.9 - 1.1 [facility] Comment:INTERNATIONAL NORMAL IZED RATIO (INR) [...] ORDERAB LES Final Result Performing Organization Address [facility]/ZIP Co de Phone Number [facility] [address] [place] [phone] * (ABNORMAL) CBC (08/22/2025 9:22 AM EDT) [facility] White Blood Count 6.8 4.8 - 10.8 X10*3/uL [facility] Red Blood Count 4.03(L) 4.60 - 5.80 X10*6/uL [facility] Hemoglobin 11.3(L) 14.0 - 18.0 g/dl [facility] Hematocrit 36.4(L) 42.0 - 52.0 % [facility] Mean Corpuscular Volume 90.3 80.0 - 98.0 fL [facility] Mean Corpuscular Hemoglobin 28.0 27.0 - 33.0 pg [facility] Mean Corpuscular HGB Conc 31.0 31.0 - 36.0 g/dl [facility] Red Cell Distribution Width 14.2 11.0 - 16.0 % [facility] Platelet Count 172 160 - 400 X10*3/uL [facility] Mean Platelet Volume 10.5 9.4 - 12.4 fL [facility] NRBC Pct Auto 0.0 0.0 - 0.2 /100WBC [facility] NRBC Abs Auto 0.000 0.0 - 0.012 X10*3/uL [facility] 08/22/2025 9:22 AM EDT 08/22/2025 9:25 AM EDT us Generic External Data Provider LAB BLOOD ORDERAB LES Final Result Performing Organization Address City/[facility]/ZIP Co de Phone Number [facility] [address] [place] [phone] * (ABNORMAL) Basic Metabolic Panel (08/22/2025 9:22 AM EDT) [facility] Sodium 135 135 - 145 mmol/L [facility] Potassium 4.1 3.3 - 5.1 mmol/L [facility] Chloride 98 96 - 108 mmol/L [facility] Carbon Dioxide 30(H) 22 - 29 mmol/L [facility] Anion Gap 11(L) 12 - 20 [facility] Urea Nitrogen (BUN) 22(H) 9 - 16 mg/dL [facility] Creatinine, Serum 4.47(HH) 0.5 - 1.4 mg/dL [facility] Comment:Critical value for C REAT: Results called to and read backby: AMIRAH Person calling: [email or web address] Date: 08/22/25 Time:947 Creatinine Clr Calc Pharmacy TNP [facility] Comment:Unable to calculate eCrCL; all parameters not provided. Estimated Glomerular Filt Rate 14 [facility] [facility] Comment:Chronic Kidney Disea se: Estimated GFR < 60 mL/min/1.53e7Iphqkv Kidney Disease: Estimated GFR < 15 mL/min/1.73m2 Glucose 161(H) 60 - 115 mg/dL [facility] Calcium 8.1(L) 8.4 - 10.2 mg/dL [facility] 08/22/2025 9:22 AM EDT 08/22/2025 9:25 AM EDT us Generic External Data Provider LAB BLOOD ORDERAB LES Final Result Performing Organization Address [facility]/ZIP Co de Phone Number [facility] [address] [place] [phone] * Blood Culture (First) (07/22/2025 1:45 PM EDT) Blood Venous blood specimen / Unknown 07/22/2025 1:45 PM EDT 07/22/2025 1:50 PM EDT Comment:Blood Narrative [facility] - 07/27/2025 3:50 PM EDT Blood Culture (First) No growth after 5 days. Specimen Source: Blood Generic External Data Provider LAB MICROBIOLOGY - GENERAL ORDERABLES Final Result Performing Organization Address City/[facility]/ZIP Co de Phone Number [facility] [address] [place] [address] [phone] * (ABNORMAL) CBC auto differential (07/22/2025 1:45 PM EDT) White Blood Count 8.9 4.8 - 10.8 X10*3/uL [facility] Red Blood Count 3.78(L) 4.60 - 5.80 X10*6/uL [facility] Hemoglobin 11.1(L) 14.0 - 18.0 g/dl [facility] Hematocrit 34.2(L) 42.0 - 52.0 % [facility] Mean Corpuscular Volume 90.5 80.0 - 98.0 fL [facility] Mean Corpuscular Hemoglobin 29.4 27.0 - 33.0 pg [facility] Mean Corpuscular HGB Conc 32.5 31.0 - 36.0 g/dl [facility] Red Cell Distribution Width 13.4 11.0 - 16.0 % [facility] Platelet Count 255 160 - 400 X10*3/uL [facility] Mean Platelet Volume 10.5 9.4 - 12.4 fL [facility] Neutrophils Percent Auto 74.4(H) 45 - 73 % [facility] Imm Gran Pct Auto 0.3 0.0 - 0.4 % [facility] Lymphocytes Percent Auto 16.4(L) 20 - 40 % [facility] Monocytes Percent Auto 6.6 2 - 11 % [facility] Eosinophils Percent Auto 2.0 0 - 4 % [facility] Basophils Percent Auto 0.3 0 - 2 % [facility] NRBC Pct Auto 0.0 0.0 - 0.2 /100WBC [facility] Neutrophils Absolute Auto 6.6 2.0 - 8.3 x10*3/uL [facility] Imm Gran Abs Auto 0.03 0.00 - 0.03 X10*3/uL [facility] Lymphocytes Absolute Auto 1.5 1.2 - 4.9 X10*3/uL [facility] Monocytes Absolute Auto 0.6 0.1 - 1.2 X10*3/uL [facility] Eosinophils Absolute Auto 0.2 0.0 - 0.4 X10*3/uL [facility] Basophils Absolute Auto 0.0 0.0 - 0.2 X10*3/uL [facility] NRBC Abs Auto 0.000 0.0 - 0.012 X10*3/uL [facility] 07/22/2025 1:45 PM EDT 07/22/2025 1:50 PM EDT us Generic External Data Provider LAB BLOOD ORDERAB LES Final Result Performing Organization Address City/[facility]/ZIP Co de Phone Number [facility] [address] [place] [address] [phone] * (ABNORMAL) Sed Rate by Modified Luisren (07/22/2025 1:45 PM EDT) Erythrocyte Sedimentation Rate 88(H) 0 - 15 MM/HR [facility] Comment:Patients with polycy themia and many hemoglobin abnormalitiesmay have depressed sed rates whereas patients with anemiamay have elevated sed rates. 07/22/2025 1:45 PM EDT 07/22/2025 1:50 PM EDT us Generic External Data Provider LAB BLOOD ORDERAB LES Final Result Performing Organization Address City/[facility]/ZIP Co de Phone Number [facility] [address] [place] [address] [phone] * (ABNORMAL) C-reactive Protein (07/22/2025 1:45 PM EDT) C Reactive Protein 12.29(H) < or = 0.50 mg/dL [facility] 07/22/2025 1:45 PM EDT 07/22/2025 1:50 PM EDT us Generic External Data Provider LAB BLOOD ORDERAB LES Final Result Performing Organization Address City/[facility]/ZIP Co de Phone Number [facility] [address] [place] [phone] [phone] * (ABNORMAL) Comprehensive Metabolic Panel (07/22/2025 1:45 PM EDT) Sodium 133(L) 135 - 145 mmol/L [facility] Potassium 3.7 3.3 - 5.1 mmol/L [facility] Chloride 96 96 - 108 mmol/L [facility] Carbon Dioxide 29 22 - 29 mmol/L [facility] Anion Gap 12 12 - 20 [facility] Urea Nitrogen (BUN) 26(H) 9 - 16 mg/dL [facility] Creatinine, Serum 4.41(HH) 0.5 - 1.4 mg/dL [facility] Comment:Critical value for C REAT: Results called to and read caroly: KATRINA Person calling: JOCELIN Date: 07/22/25 Time: 1410 Creatinine Clr Calc Pharmacy 20.7 [facility] Comment:eGFR (calculated fro m the MDRD study equation) and eCrCl(calculated from the Cockcroft-Gault equation) are based ondifferent parameters and may not yield comparable results.If eCrCl result is absurd, please check patient'sheight/weight. Estimated Glomerular Filt Rate 14 [facility] Comment:Chronic Kidney Disea se: Estimated GFR < 60 mL/min/1.50d6Mvhswf Kidney Disease: Estimated GFR < 15 mL/min/1.73m2 Glucose 203(H) 60 - 115 mg/dL [facility] Calcium 8.3(L) 8.4 - 10.2 mg/dL [facility] Bilirubin, Total 0.3 0.0 - 1.0 mg/dL [facility] Aspartate Amino Transferase 28 5 - 37 U/L [facility] Alanine Aminotransferase <6 0 - 40 U/L [facility] Total Protein 8.3(H) 6.5 - 8.0 g/dL [facility] Albumin Level 3.0(L) 3.5 - 5.0 g/dL [facility] Alkaline Phosphatase 79 39 - 117 U/L [facility] 07/22/2025 1:45 PM EDT 07/22/2025 1:50 PM EDT us Generic External Data Provider LAB BLOOD ORDERAB LES Final Result [facility] [address] [place] [phone] * XR Tibia Fibula 2 Views Right (07/22/2025 1:15 PM EDT) Anatomical Region Laterality Modality Lower Extremities, Lower Leg Right Rad iographic Imaging 07/22/2025 1:15 PM EDT Narrative 07/22/2025 1:47 PM EDT [address] [address] XRay Report Signed with Addenda Patient: Deandre Luong MR#: [id number] 3 : 1980 Acct:[id number] Age/Sex: 45 / M ADM Date: 07/22/25 Loc: HO.ED Attending Dr: Ordering Physician: Melissa Waters NP Date of Service: 07/22/25 Procedure(s): XR tibia fibula RT 2V Accession Number(s): [id number] cc: [facility]; Melissa Waters NP Reason for Exam: [...] Kenroy Torres MD 07/22/2025 01:45 PM EDT Dictated By: Kenroy Torres MD Signed By: <Electronically signed by Kenroy Torres MD in OV> 07/22/25 1345 DD/ 1315 TD/TT: 07/22/25 1320 Director Of Services: Procedure Note Donotuseinterpreter, Image - 07/22/2025 [place] [address] XRay Report Signed with Addenda Patient: Deandre Luong [facility]#: [id number] 3 : 1980Acct:[id number] Age/Sex: 45 / MADM Date: 07/22/25 Loc: HO.ED Attending Dr: Ordering Physician: Melissa Waters NP Date of Service: 07/22/25 Procedure(s): XR tibia fibula RT 2V Accession Number(s): [id number] cc: [facility]; Melissa Waters NP Reason for Exam: [...] of the tibia. Electronically signed by: Kenroy Torrse MD 07/22/2025 02:18 PM EDT RP Addendum [...] 07/22/25 1345 DD/ 1315 TD/TT: 07/22/25 1320 Director Of Services: [facility] External Provider IMG XR PROCEDURES Edited Result - Final * Blood Culture (Second) (07/22/2025 12:56 PM EDT) Blood Venous blood specimen / Unknown 07/22/2025 12:56 PM EDT 07/23/2025 9:21 AM EDT Comment:Blood Narrative [facility] - 07/23/2025 9:22 AM EDT Blood Culture (Second) Test not performed NO SPECIMEN RECEIVED. PATIENT DEPARTED ED Specimen Source: Blood us Generic External Data Provider LAB MICROBIOLOGY - GENERAL ORDERABLES Final Result Performing Organization Address City/[facility]/ZIP Co de Phone Number [facility] [address] [place] [address] [phone] * (ABNORMAL) POCT A1C (07/14/2023 1:40 PM EDT) Hemoglobin A1C 11.1(A) 4.0 - 6.0 % QC Media Lot # [id number] Lot# Expiration Date Blood 07/14/2023 1:40 PM EDT Awilda Walters [...] ORDERABLE LABS Final Result Performing Organization Address City/[facility]/ZIP Co de Phone Number [facility] [address] * HM Hepatitis C Antibody (06/22/2019) [...] kidney disease 09/21/2025 Weekly blood pressure task 09/27/2025 Weekly blood pressure task 09/27/2025 Patient has chronic kidney disease 09/27/2025 Patient has chronic kidney disease 09/27/2025 Weekly blood pressure task 09/27/2025 Weekly blood pressure task 09/27/2025 Patient has chronic kidney disease 09/27/2025 Patient has chronic kidney disease 09/27/2025 Weekly blood pressure task 09/28/2025 Weekly blood pressure task 09/28/2025 Patient has chronic kidney disease 09/28/2025 Patient has chronic kidney disease 09/28/2025 Insurance [facility] C3 Care Teams Smoke Jumper Relationship Specialty Start Date End Date Deandre Riddle, RN [address] [place] [address] Registered Nurse Family Medicine 09/05/25 Talya Hernandez 09/05/25
--- OUTSIDE RECORDS SUMMARY | 2025-10-05 08:21 | XMS_ITS | Encounter Summary ---
Author Organization [employer] Address [address] [facility] 7t [place] [address] Care Team Providers Care Graphic Production Artist Name Role Phone Deandre Riddle RN Unavailable [phone] DavidTalya Unavailable Encounter Details Date Type Department Care Team ([facility] st Contact Info) Description 09/27/2025 Results Follow-Up [facility] [address] [place] [address] Provider, Generic External Data XR Chest 1 View Social History Tobacco Use Types Packs/Day Years [...] Plan Weekly blood pressure task No Deandre Riddle RN Weekly blood pressure task Care Plan Weekly blood pressure task No Deandre Riddle, JOVITA Patient has chronic kidney disease Care Plan Patient has chronic kidney disease No Deandre Riddle, JOVITA Patient has chronic kidney disease Care Plan Patient has chronic kidney disease No Deandre Riddle RN Weekly blood pressure task Care Plan [...] 09/27/2025 Patient has chronic kidney disease 09/27/2025 documented as of this encounter Care Teams Graphic Production Artist Relationship Specialty Start Date End Date Deandre Riddle RN [address] [place] [address] Registered Nurse Family Medicine 09/05/25 Talya Hernandez 09/05/25 documented as of this encounter
--- OUTSIDE RECORDS SUMMARY | 2025-10-05 08:21 | XMS_ITS | Encounter Summary ---
Author Organization [employer] Address [address] [facility] 7t [place] [address] Care Team Providers Care Plate Glass Installer Helper Name Role Phone Deandre Riddle RN Unavailable [phone] DavidTalya Unavailable Reason for Visit * Reason Comments Med Refill Encounter Details Date Type Department Care Team ([facility] st Contact Info) Description 04/06/2025 Refill [facility] [address] [place] [address] Cristina Stover MD [address] [place] [address] Social History Tobacco Use Types Packs/Day Years [...] on filedocumented in this encounter Care Teams Plate Glass Installer Helper Relationship Specialty Start Date End Date Deandre Riddle RN [address] [place] [address] Registered Nurse Family Medicine 09/05/25 Talya Hernandez 09/05/25 documented as of this encounter
--- OUTSIDE RECORDS SUMMARY | 2025-10-05 08:21 | XMS_ITS | Encounter Summary ---
Author Organization [employer] Address [address] [facility] 7 [place] [address] Care Team Providers Care Accounts Officer Name Role Phone Cristina Stover MD Primary Care Provider [phone] Cristina Stover MD Primary Care Provider [phone]- [phone] Cristina Stover MD Primary Care Provider [phone]- [phone] Deandre Riddle RN Unavailable [phone] Talya Hernandez Unavailable Encounter Details Date Type Department Care Team (Late st Contact Info) Description 03/20/2023 Orders Only [facility] MED & PEDS [address] [place], [place] [phone] Nay Benitez LPN Social History Tobacco Use [...] on filedocumented in this encounter Care Teams Accounts Officer Relationship Specialty Start Date End Date Cristina Stover MD [address] [place], [place] [phone] PCP - General Family Medicine 05/20/14 12/30/23 Cristina Stover MD [address] [place], [place] [phone] PCP - General Family Medicine 01/06/24 08/29/24 Cristina Stover MD [address] [place] [address] PCP - General Family Medicine 11/29/24 12/20/24 Deandre Riddle RN [address] [place] [address] Registered Nurse Family Medicine 09/05/25 Talya Hernandez 09/05/25 documented as of this encounter
--- OUTSIDE RECORDS SUMMARY | 2025-10-05 08:21 | XMS_ITS | Encounter Summary ---
Author Organization [employer] Address [address] [facility] 7 [place] [address] Care Team Providers Care Missile Inspector Name Role Phone Cristina Stover MD Primary Care Provider [phone]- [phone] Cristina Stover MD Primary Care Provider [phone] Cristina Stover MD Primary Care Provider [phone]- [phone] Deandre Riddle RN Unavailable [phone] Talya Hernandez Unavailable Encounter Details Date Type Department Care Team (Late st Contact Info) Description 01/17/2023 Orders Only [facility]ED[facility] [address] [place], [place] [phone] Nay Benitez LPN Social History Tobacco Use [...] on filedocumented in this encounter Care Teams Missile Inspector Relationship Specialty Start Date End Date Cristina Stover MD [address] [place], [place] [phone] PCP - General Family Medicine 05/20/14 12/30/23 Cristina Stover MD [address] [place], [place] [phone] PCP - General Family Medicine 01/06/24 08/29/24 Cristina Stover MD [address] [place] [address] PCP - General Family Medicine 11/29/24 12/20/24 Deandre Riddle RN [address] [place] [address] Registered Nurse Family Medicine 09/05/25 Talya Hernandez 09/05/25 documented as of this encounter
--- OUTSIDE RECORDS SUMMARY | 2025-10-05 08:21 | XMS_ITS | Encounter Summary ---
Author Organization [employer] Address 75 [facility] 7 [place] [address] Care Team Providers Care Hand Ornament Maker Name Role Phone Cristina Stover MD Primary Care Provider [phone] Cristina Stover MD Primary Care Provider [phone] Cristina Stover MD Primary Care Provider [phone]- [phone] Deandre Riddle RN Unavailable [phone] Talya Hernandez Unavailable Reason for Visit * Reason Comments Med Refill Encounter Details Date Type Department Care Team (Late st Contact Info) Description 05/26/2023 Refill [facility] [address] [place] [address] Araseli Rucker ANP [address] [place] [address] Social History Tobacco Use Types Packs/Day Years [...] filedocumented in this encounter Care Teams Hand Ornament Maker Relationship Specialty Start Date End Date Cristina Stover MD [address] [place] [address] PCP - General Family Medicine 05/20/14 12/30/23 Cristina Stover MD [address] [place] [address] PCP - General Family Medicine 01/06/24 08/29/24 Cristina Stover MD [address] [place] [address] PCP - General Family Medicine 11/29/24 12/20/24 Deandre Riddle RN [address] [place] [address] Registered Nurse Family Medicine 09/05/25 Talya Hernandez 09/05/25 documented as of this encounter
--- OUTSIDE RECORDS SUMMARY | 2025-10-05 08:21 | XMS_ITS | Encounter Summary ---
Author Organization [employer] Address [address] [facility] 7 [place] [address] Care Team Providers Care Pci Security Consultant Name Role Phone Cristina Stover MD Primary Care Provider [phone] Cristina Stover MD Primary Care Provider [phone]- [phone] Cristina Stover MD Primary Care Provider [phone] Deandre Riddle RN Unavailable [phone] Talya Hernandez Unavailable Encounter Details Date Type Department Care Team (Late st Contact Info) Description 11/19/2022 Orders Only [facility] MED & PEDS [address] [place], [place] [phone] Nay Benitez LPN Social History Tobacco Use [...] on filedocumented in this encounter Care Teams Pci Security Consultant Relationship Specialty Start Date End Date Cristina Stover MD [address] [place], [place] [phone] PCP - General Family Medicine 05/20/14 12/30/23 Cristina Stover MD [address] [place], [place] [phone] PCP - General Family Medicine 01/06/24 08/29/24 Cristina Stover MD [address] [place] [address] PCP - General Family Medicine 11/29/24 12/20/24 Deandre Riddle RN [address] [place] [address] Registered Nurse Family Medicine 09/05/25 Talya Hernandez 09/05/25 documented as of this encounter
--- OUTSIDE RECORDS SUMMARY | 2025-10-05 08:21 | XMS_ITS | Encounter Summary ---
Author Organization [employer] Address [address] [facility] 7t [place] [address] Care Team Providers Care Sagger Soak Name Role Phone Cristina Stover MD Primary Care Provider Cristina Stover MD Primary Care Provider Cristina Stover MD Primary Care Provider Deandre Riddle RN Unavailable [phone] Talya Hernandez Unavailable Encounter Details Date Type Department Care Team (Late st Contact Info) Description 10/17/2023 Telephone [facility] [address] [place] [address] Cristina Stover MD [address] [place] [address] Social History Tobacco Use Types Packs/Day Years [...] mom of pt requesting Phone number of [facility] wheel chair clinic. PCP DR. Stover documented in this encounter Plan of Treatment Not on file documented as of this encounter Visit Diagnoses Not on filedocumented in this encounter Care Teams Sagger Soak Relationship Specialty Start Date End Date Cristina Stover MD [address] [place] [address] PCP - General Family Medicine 05/20/14 12/30/23 Cristina Stover MD [address] [place] [address] PCP - General Family Medicine 01/06/24 08/29/24 Cristina Stover MD [address] [place] [address] PCP - General Family Medicine 11/29/24 12/20/24 Deandre Riddle, JOVITA [address] [place] [address] Registered Nurse Family Medicine 09/05/25 Talya Hernandez 09/05/25 documented as of this encounter
--- OUTSIDE RECORDS SUMMARY | 2025-10-05 08:21 | XMS_ITS | Encounter Summary ---
Author Organization [employer] Address [address] [facility] 7[place] [address] Care Team Providers Care Powered Bridge Specialist Name Role Phone Cristina Stover MD Primary Care Provider [phone] Cristina Stover MD Primary Care Provider [phone] Cristina Stover MD Primary Care Provider [phone] Deandre Riddle RN Unavailable [phone] Talya Hernandez Unavailable Encounter Details Date Type Department Care Team (Late st Contact Info) Description 06/04/[address] [facility] MEDICINE [address] [place] [address] Cristina Stover MD 230 [place] [address] Uncomplicated opioid dependence (CMS/HCC); Polysubstance abuse (CMS/HCC); [...] type documented in this encounter Care Teams Powered Bridge Specialist Relationship Specialty Start Date End Date Cristina Stover MD [address] [place] [address] PCP - General Family Medicine 05/20/14 12/30/23 Cristina Stover MD [address] [place] [address] PCP - General Family Medicine 01/06/24 08/29/24 Cristina Stover MD [address] [place] [address] PCP - General Family Medicine 11/29/24 12/20/24 Deandre Riddle, JOVITA [address] [place] [address] Registered Nurse Family Medicine 09/05/25 Talya Hernandez 09/05/25 documented as of this encounter
--- OUTSIDE RECORDS SUMMARY | 2025-10-05 08:21 | XMS_ITS | Encounter Summary ---
Author Organization [employer] Address [address] [facility] 7 [place] [address] Care Team Providers Care Returned Case Inspector Name Role Phone Cristina Stover MD Primary Care Provider [phone] Cristina Stover MD Primary Care Provider Cristina Stover MD Primary Care Provider Deandre Riddle RN Unavailable [phone] Talya Hernandez Unavailable Reason for Visit * Reason Onset Date Comments Hospital Follow-up 11/26/2023 Encounter Details Date Type Department Care Team (Late st Contact Info) Description 11/26/2023 Telephone [facility] MEDICINE [address] [place], [place] [phone] Cristina Stover MD [address] [place] [address] Hospital Follow-up Social History Tobacco Use Types [...] on filedocumented in this encounter Care Teams Returned Case Inspector Relationship Specialty Start Date End Date Cristina Stover MD [address] [place] [address] PCP - General Family Medicine 05/20/14 12/30/23 Cristina Stover MD [address] [place] [address] PCP - General Family Medicine 01/06/24 08/29/24 Cristina Stover MD [address] [place] [address] PCP - General Family Medicine 11/29/24 12/20/24 Deandre Riddle, RN [address] [place], [place] [address] [address] Registered Nurse Family Medicine 09/05/25 Talya Hernandez 09/05/25 documented as of this encounter
--- OUTSIDE RECORDS SUMMARY | 2025-10-05 08:21 | XMS_ITS | Encounter Summary ---
Author Organization [facility] Address [address] [place] [address] Phone Care Team Providers Care Bible Teacher Name Role Phone Baker, Cristina Petersen MD Primary Care Provi jason Encounter Details Date Type Department Care Team (Late st Contact Info) Description 02/16/2022 Procedure Pass [facility], Ct Scan - [address] [address] Social History Tobacco Use Types Packs/Day Years [...] 4:52 PM EDT Alan Gutiérrez RN * [employer]ru Suicide Severity Rating Scale (Screener/Recent Self-Report) Question [...] on filedocumented in this encounter Care Teams Bible Teacher Relationship Specialty Start Date End Date Ck, Cristina Petersen MD [address] [place] [address] PCP - General 08/19/17 documented as of this encounter Additional Source Comments The information contained in this document represents components of the legal health record. It is not the complete legal health record.[facility]
--- OUTSIDE RECORDS SUMMARY | 2025-10-05 08:21 | XMS_ITS | Encounter Summary ---
Author Organization [employer] Address [address] [place] [address] Care Team Providers Care Clerical Proofreader Name Role Phone Cristina Stover MD Primary Care Provider [phone]- [phone] Cristina Stover MD Primary Care Provider [phone]- [phone] Cristina Stover MD Primary Care Provider [phone]- [phone] Deandre Riddle RN Unavailable [phone] Talya Hernandez Unavailable Reason for Visit * Reason Onset Date Comments PT1 05/30/2023 Encounter Details Date Type Department Care Team (Late st Contact Info) Description 05/30/2023 Telephone [facility] [address] [place] [address] Cristina Stover MD [address] [place] [address] PT1 Social History Tobacco Use Types Packs/Day Years Used Date Smoking Tobacco: Never Assessed Sex and Gender Information Value Date Recorded Sex Assigned at Male 09/02/2022 10:14 AM EDT Legal Sex Male 10:14 AM EDT Gender Identity Male 09/02/2022 10:14 AM EDT Sexual Orientation Straight 09/02/2022 10 :14 AM EDT documented as of this encounter Miscellaneous Notes * Telephone Encounter - Toshia Heranndez - 05/30/2023 1:54 PM EDT Tc from pt requesting a PT1 Date: 06/02/23 Time: 9 am address: [address] [place] [address] specialty: hospital f/u # visits: metaphysics teacher: n/a Wheelchair: yes documented in this encounter Plan of Treatment Not on file documented as of this encounter Visit Diagnoses Not on filedocumented in this encounter Care Teams Clerical Proofreader Relationship Specialty Start Date End Date Cristina Stover MD [address] [place] [address] PCP - General Family Medicine 05/20/14 12/30/23 Cristina Stover MD [address] [place] [address] PCP - General Family Medicine 01/06/24 08/29/24 Cristina Stover MD [address] [place] [address] PCP - General Family Medicine 11/29/24 12/20/24 Deandre Riddle, JOVITA [address] [place] [address] Registered Nurse Family Medicine 09/05/25 Talya Hernandez 09/05/25 documented as of this encounter
--- OUTSIDE RECORDS SUMMARY | 2025-10-05 08:21 | XMS_ITS | Clinical Summary ---
Author Organization [facility] Address [address] [facility] [address] [place] [id number] Phone Care Team Providers Care Back Gray Cloth Washer Name Role Phone Cristina Stover MD Primary [...] EDT) SODIUM 127(L) 133 - 146 mmol/L [facility] CHLORIDE 92(L) 96 - 108 mmol/L [facility] POTASSIUM 5.6(H) 3.3 - 5.1 mmol/L [facility] Comment:Specimen slightly he molyzed, result may be falsely elevated. CO2 27 21 - 35 mmol/L [facility] BUN 40(H) 6 - 19 mg/dL [facility] CREATININE 3.30(H) 0.5 - 1.5 mg/dL [facility] GLUCOSE 325(H) 70 - 99 mg/dL [facility] CALCIUM 9.7 8.4 - 10.3 mg/dL [facility] EGFR 23(L) >59 mL/min/1.7 3m2 [facility] Comment:Estimated glomerular filtration rate calculated using the CKD-EPI refit equation. ANION GAP 14 10 - 20 mmol/L [facility] Blood 02/16/2022 5:52 PM EDT 02/16/2022 6:00 PM EDT us Jeny Feldman MD LAB BLOOD BKR ORDERABLES Fin al Result [address] [id number] from Last 3 Months or Most Recently Relevant to Health Maintenance Insurance C3 ACO C3 ACO C3 ACO C3 ACO C3 ACO C3 ACO C3 ACO C3 ACO Care Teams Back Gray Cloth Washer Relationship Specialty Start Date End Date Ck, Cristina Petersen MD [address] [place] [address] PCP - General 08/19/17 Additional Source Comments The information contained in this document represents components of the legal health record. It is not the complete legal health record.[facility]
--- OUTSIDE RECORDS SUMMARY | 2025-10-05 08:21 | XMS_ITS ---
Author Organization [employer] Address [address] [place] [address] Care Team Providers Care Media Analyst Name Role Phone Deandre Riddle RN Unavailable [phone] Talya Hernandez Unavailable CHW Complex Status:Outreach In Progress (Enrolling) Start date:09/05/2025 Enrollment reason:ADT Feed Overview ADT- Pt admitted to [facility] [place] on 09/04/25. Case Team Name Relationship Phone Talya Hernandez(Responsible Staff) [phone] Continued Care and Services Coordination
--- OUTSIDE RECORDS SUMMARY | 2025-10-05 08:21 | XMS_ITS | Encounter Summary ---
Author Organization [employer] Address [address] [facility] [address] [place] [address] Care Team Providers Care Drafter Refrigeration Name Role Phone Deandre Riddle RN Unavailable [phone] Talya Hernandez Unavailable Encounter Details Date Type Department Care Team (Latest Contact Info) Description 08/23/2025 Results Follow-Up [facility] [address] [place] [address] Cristina Stover MD [address] [place] [address] CBC, Prothrombin Time-INR, Partial Thromboplastin Time, Activated [...] on filedocumented in this encounter Care Teams Drafter Refrigeration Relationship Specialty Start Date End Date Deandre Riddle RN [address] [place] [id number] Registered Nurse Family Medicine 09/05/25 Talya Hernandez 09/05/25 documented as of this encounter
--- OUTSIDE RECORDS SUMMARY | 2025-10-05 08:21 | XMS_ITS ---
Author Organization [employer] Address [address] [place] [address] 7 [place] [address] Care Team Providers Care Concrete Grinder Operator Name Role Phone Deandre Riddle RN Unavailable [phone] Talya Hernandez Unavailable CM Complex Status:Outreach In Progress (Enrolling) Start date:09/05/2025 Enrollment reason:ADT Feed Overview ADT- Pt admitted [place] [facility] [place]04[place]. Case Team Name Relationship Phone Deandre Riddle RN(Responsible Staff) Registered [facility] [place] [phone] Continued Care and Services Coordination
[2025-10-05] MEDS: LORazepam 2 MG/ML VIAL IVPUSH (12:15)
[2025-10-05 12:45] LABS: Cannabinoid Screen Urine Not Detected (Not Detect)
--- NOTE | 2025-10-05 12:52 | PC.NURSE ---
Pt rests soundly for most of the morning. He is arousable to name and tactile stimuli but struggles to remain alert without continuous stimuli. Dr. Schmidt orders IVP Narcan and medications given per MAR. After narcan medication, Pt becomes agitated and demands to leave. He threatens to rip out his IV access and attempts to flee the ED. Verbal order received by Dr. Schmidt to give Ativan 2mg and Haldol 5mg IVP STAT. Medications removed from pyxis machine (override) and given per verbal orders with Dr. Schmidt at bedside at 1215. Pt remains under constant cardiac monitoring with O2 sat sticker. VS monitored and documented per medication restraint protocol.
--- NOTE | 2025-10-05 17:12 | PC.NURSE ---
Pt continues to rest with eyes closed in stretcher with occasional episodes of restlessness. VSS NAD noted.
--- NOTE | 2025-10-05 18:22 | PC.NURSE ---
Pt incontinent of urine. Linens and clothing changed. Pt continues to be drowsy but does attempt to assist with bed/clothing change.
--- NOTE | 2025-10-05 19:25 | PC.NURSE ---
20 g IV left forearm
--- NOTE | 2025-10-05 19:25 | PC.NURSE ---
Pt very restless on stretcher, but will follow verbal commands. Maintaining airway independently.
--- NOTE | 2025-10-05 23:34 | PC.NURSE ---
f/u with MD Marquez regarding plan of care, patient continues to be extremely restless. pt arousable to name but quick to fall back asleep. per MD will reassess once patient is able to make a decision of admit vs d/c AMA. pt previously not agreeable to being admitted and currently stated same. MD suggested 1:1 sitter on patient as he is at risk of falls and is okay with patient being in hallway on a portable monitor. per supervisor major appliance assembly Kelly patient moved to 13 [address] and placed on monitor, 1;1 sitter at bedside. report given and care handover to Todd HUSSEIN.
--- NOTE | 2025-10-05 23:39 | PC.NURSE ---
Assumed care of pt, presented to the ER earlier today for seizures at home, pt was given narcan earlier this afternoon, then became agitated stated he wanted to leave, however pt is not sober enough to leave on his own, pt is somnulent but is answering questions appropriately
[2025-10-06] VITALS (8 sets, daily range): BP systolic 140–198; BP diastolic 72–104; PULSE 90–100; RESP 18–22; TEMP 36.2–36.7; O2SAT 94–100
--- NOTE | 2025-10-06 | ECG_ITS ---
Test Reason : DIAPHORESIS Blood Pressure : */* mmHG Vent. Rate : 92 BPM Atrial Rate : 92 BPM P-R Int : 238 ms QRS Dur : 102 ms QT Int : 390 ms P-R-T Axes : 67 45 80 degrees QTcB Int : 482 ms Sinus rhythm with 1st degree A-V block Possible Left atrial enlargement Minimal voltage criteria for LVH, may be normal variant ( Jerry product ) Prolonged QT Abnormal ECG When compared with ECG of 05-Oct-2025 06:40, No significant change was found Referred By: David Marquez Electronically Signed By: SHIVANI ALATORRE
[2025-10-06 01:21] LABS: Glucose, Whole Blood 89 mg/dL (60-115)
[2025-10-06] MEDS: diazePAM 10 MG/2 ML CARTRIDGE IVPUSH (02:55)
[2025-10-06 05:44] LABS: Hematocrit 41.9 % (42.0-52.0); Hemoglobin 13.8 g/dl (14.0-18.0); Imm Gran Abs Auto 0.02 X10*3/uL (0.00-0.03); Imm Gran Pct Auto 0.2 % (0.0-0.4); Lymphocytes Absolute Auto 1.3 X10*3/uL (1.2-4.9); MANUAL DIFF FLAG NO; Mean Corpuscular HGB Conc 32.9 g/dl (31.0-36.0); Mean Corpuscular Hemoglobin 29.7 pg (27.0-33.0); Mean Corpuscular Volume 90.1 fL (80.0-98.0); NRBC Abs Auto 0.000 X10*3/uL (0.0-0.012); NRBC Pct Auto 0.0 /100WBC (0.0-0.2); Platelet Count 262 X10*3/uL (160-400); Red Blood Count 4.65 X10*6/uL (4.60-5.80); White Blood Count 10.4 X10*3/uL (4.8-10.8)
[2025-10-06 05:49] LABS: Ammonia 34 umol/L (13-55)
[2025-10-06 05:50] LABS: VBG HCO3 21 mmol/L (22-26); VBG O2 % Saturation 98.0 %
[2025-10-06 05:51] LABS: Venous Blood Gas Refer to POC result
[2025-10-06 06:04] LABS: Alanine Aminotransferase 6 U/L (0-40); Albumin Level 3.7 g/dL (3.5-5.0); Alkaline Phosphatase 92 U/L (39-117); Anion Gap 22 (12-20); Aspartate Amino Transferase 40 U/L (5-37); Blood Urea Nitrogen 58 mg/dL (9-16); Calcium 8.9 mg/dL (8.4-10.2); Carbon Dioxide 19 mmol/L (22-29); Chloride 103 mmol/L (96-108); Creatinine Clr Calc Pharmacy 10.1; Estimated Glomerular Filt Rate 6; Magnesium 2.9 mg/dL (1.6-2.6); Potassium 4.7 mmol/L (3.3-5.1); Sodium 139 mmol/L (135-145); Total Protein 8.6 g/dL (6.5-8.0)
[2025-10-06] MEDS: Nitroglycerin 2 % Oint 1 GM Packet 1 INCH TRANSDERMA ×2 (06:27→07:15)
--- NOTE | 2025-10-06 06:45 | P.HPHOSP_ITS ---
History of Present Illness Date of Service: 10/06/25 Attending physician on admission: Jersey Delgadillo Chief Complaint: Seizure Patient is a 45-year-old male with a past medical history significant for ESRD on HD MWF, history seizures (no medications), substance use disorder (heroin, fentanyl, cocaine), PVD, DM, COPD and hypertension, who presented to the ED yesterday morning due to a witnessed seizure prior to dialysis. The patient was postictal on arrival and denied any drug use prior to this seizure. He does have a history of seizures but does not take any medication for it. He was loaded with 3 g of IV Keppra in the ED. The patient has a history of leaving AMA and around 12:00 he became agitated and was medicated with Haldol and Ativan. Patient's mother has had lengthy discussions with the ED provider on wishes for sobriety. The patient has been somnolent and is overdue for dialysis at this time. Patient to be admitted due to need for dialsysis and continued somnolence. Review of Systems 2 Review of Systems: Yes Unobtainable due to mental condition and Unobtainable due to mental status [facility] Medical History (Updated 10/06/25 @ 06:51 by Tanmay Lake MD) PVD (peripheral vascular disease) ESRD (end stage renal disease) Diabetic skin ulcer Opioid use disorder, severe, dependence Anemia in chronic kidney disease (CKD) ESRD (end stage renal disease) on dialysis Cardiomyopathy Pericardial effusion Leukocytosis Transfusion history Atrial flutter, paroxysmal COPD (chronic obstructive pulmonary disease) Constipation Callus of foot Seizure Polysubstance abuse CKD (chronic kidney disease) stage 3, GFR 30-59 ml/min Foot osteomyelitis, left Amputation of toe of right foot Diabetic ulcer of right foot Sleep apnea Diabetes HTN (hypertension) Surgical History History of surgery on arm History of surgery History of surgery 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 History of surgical procedure (~04/24/23) Social History Household Members: Other Household Members Other:: Mom Housing: Unknown / Unable to assess Are you a primary regular senior care provider to a significant other at home: No Alcohol intake: former 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 Patient Tobacco Use Status: Tobacco use Unknown Tobacco use type: Cigarette Cigarette Packs Per Day: 0.5 Cigarettes Per Day: 6 Years Smoked: 33 e-Cigarette/Vaping Use: Currently Using Second Hand Smoke Exposure: Yes Substance Use Type: Crack/Cocaine and Heroin Advance Directives: No Advance Directives Information Provided: Yes Do you have a plan to hurt others: No Plan service: No Meds Allergies Allergy/AdvReac Type Severity Reaction Status Date / Time No Known Allergies (No Known Allergy Verified 10/05/25 06:26 Allergies*) Physical Exam 2 Vital Signs and Narrative: Vital Signs: Last Vital Signs Temp 97.1 F 10/06/25 06:00 Pulse 96 10/06/25 06:27 Resp 18 10/06/25 06:00 BP 182/102 H 10/06/25 06:27 Pulse Ox 100 10/06/25 06:00 O2 Del Method Nasal Cannula 10/06/25 06:00 O2 Flow Rate 2 10/06/25 06:00 BMI result Body Mass Index 26.4 General: somnolent, will open eyes but not responding verbally, no acute distress Resp: CTA bilaterally CVS: S1, S2, RRR GI: +BS, NT, no distention Skin: Warm, diaphoretic Neuro: Cranial nerves II-XII grossly intact bilaterally. Motor grossly intact bilaterally Extremities: s/p R BKA, L metarsal amputation Psych: Somnolent Results Labs 10/06/25 05:37 10/06/25 05:37 Labs: Laboratory Results - last 24 hr 10/05/25 10/05/25 10/06/25 06:49 12:22 01:18 MCV 92.1 MCH 30.1 MCHC 32.7 RDW 14.6 Plt Count 208 MPV 10.6 Immature Gran % (Auto) 0.4 Neut % (Auto) 66.8 Lymph % (Auto) 17.6 L Mcdonald % (Auto) 9.8 Eos % (Auto) 5.0 H Baso % (Auto) 0.4 Lymph # (Auto) 1.5 Mcdonald # (Auto) 0.8 Eos # (Auto) 0.4 Baso # (Auto) 0.0 Abs Immat Gran (auto) 0.03 Absolute Neuts (auto) 5.7 Absolute Nucleated RBC 0.000 Nucleated RBC % (auto) 0.0 VBG pH VBG pCO2 VBG pO2 VBG HCO3 VBG O2 Saturation VBG Base Excess Anion Gap 19 Estim Creat Clear Calc 11.6 Estimated GFR 7 POC Glucose 89 Random Glucose 133 H Calcium 8.6 Magnesium 2.6 Total Bilirubin 0.3 Direct Bilirubin AST 36 ALT 9 Alkaline Phosphatase 99 Ammonia Total Protein 8.4 H Albumin 3.6 Urine Opiates Screen POSITIVE H Ur Buprenorphine Scrn Not Detected Ur Oxycodone Screen Not Detected Urine Methadone Screen Not Detected Urine Fentanyl Screen POSITIVE H Ur Barbiturates Screen Not Detected Ur Phencyclidine Scrn Not Detected Ur Amphetamines Screen Not Detected U Benzodiazepines Scrn Not Detected Urine Cocaine Screen POSITIVE H U Marijuana (THC) Screen Not Detected 10/06/25 10/06/25 05:37 05:45 MCV 90.1 MCH 29.7 MCHC 32.9 RDW 14.6 Plt Count 262 D MPV 10.8 Immature Gran % (Auto) 0.2 Neut % (Auto) 80.2 H Lymph % (Auto) 12.8 L Mcdonald % (Auto) 5.7 Eos % (Auto) 0.7 Baso % (Auto) 0.4 Lymph # (Auto) 1.3 Mcdonald # (Auto) 0.6 Eos # (Auto) 0.1 Baso # (Auto) 0.0 Abs Immat Gran (auto) 0.02 Absolute Neuts (auto) 8.3 Absolute Nucleated RBC 0.000 Nucleated RBC % (auto) 0.0 VBG pH 7.41 VBG pCO2 32 VBG pO2 96 VBG HCO3 21 L VBG O2 Saturation 98.0 VBG Base Excess -2.6 Anion Gap 22 H Estim Creat Clear Calc 10.1 Estimated GFR 6 POC Glucose Random Glucose 89 Calcium 8.9 Magnesium 2.9 H Total Bilirubin 0.4 Direct Bilirubin 0.2 AST 40 H ALT 6 Alkaline Phosphatase 92 Ammonia 34 Total Protein 8.6 H Albumin 3.7 Urine Opiates Screen Ur Buprenorphine Scrn Ur Oxycodone Screen Urine Methadone Screen Urine Fentanyl Screen Ur Barbiturates Screen Ur Phencyclidine Scrn Ur Amphetamines Screen U Benzodiazepines Scrn Urine Cocaine Screen U Marijuana (THC) Screen Imaging Radiologist's Impressions: Impressions Head CT 10/05/25 10:51 IMPRESSION: No acute intracranial abnormality. Electronically signed by: García Loza MD 10/05/2025 11:14 AM EST [facility] Assessment and Plan (1) Seizure: Status: Acute (2) Polysubstance abuse: Status: Acute (3) ESRD (end stage renal disease) on dialysis: Status: Chronic Plan Patient is a 45-year-old male with a past medical history significant for ESRD on HD MWF, history seizures (no medications), substance use disorder (heroin, fentanyl, cocaine), PVD, DM, COPD and hypertension, who presented to the ED yesterday morning due to a witnessed seizure prior to dialysis. Patient has been somnolent since receiving IV Keppra, Haldol and Ativan, we will need dialysis today, admit for further evlauation and to coordinate dialysis. seizure - somnolent since 3g IV keppra, haldol and ativan - monitor on tele - neuro consult polysubstance abuse - addiction med consult ESRD on HD MWF - nephrology consult chronic anemia, at baseline - monitor CBC DM - check POC - SSI mild COPD, no acute exacerbation - continue home meds HTN - continue home meds med rec pending full code VTE prophy: heparin Patient with witnessed seizure, somnolent after receiving IV Keppra, Haldol and Ativan, requires dialysis today, we will admit for to coordinate and further evaluate. Quality Stroke Does the patient have a stroke diagnosis?: No VTE Prior VTE?: No VTE Risk Level:: Medical - moderate - high VTE Device Contraindication: Treatment Not Indicated VTE Drug Contraindication: N/A - Med Ordered
[2025-10-06 07:24] LABS: Glucose, Whole Blood 87 mg/dL (60-115)
[2025-10-06] MEDS: 0.9 % Sodium Chloride Flush 3 ML SYRINGE IVFLUSH ×2 (07:26→16:56)
--- NOTE | 2025-10-06 11:35 | MHC.CM.PN ---
CM met with Patient in HD to address VARGAS; Patient was sleeping soundly. CM left VARGAS at bedside and will return later to discuss VARGAS fully. Patient lives in an apartment with his Mother, is on Suboxone, and receives HD Q M/W/ at [facility]. Home/resume said services is the tentative plan and CM has initiated and will follow for dc planning.PCP is Dr. Cristina Stover and Patient typically [facility] [place].
--- NOTE | 2025-10-06 12:49 | PHA.MEDREC ---
Pharmacy Consult ? Medication Reconciliation Pharmacy has completed the medication reconciliation. Pt unable to confirm meds verbally, looks like they filled only Suboxone recently, confirmed with pharmacy claims and PDMP
--- NOTE | 2025-10-06 12:56 | P.CNNE_ITS ---
History of Present Illness Data of Consult Service Date: 10/06/25 Primary Care Provider: [facility] LADONNA Carrera is a 45-year-old male patient with a past medical history of ESRD on dialysis Friday, seizures, substance use disorder (heroin, fentanyl, and cocaine), PVD, DM, COPD, and hypertension who presented to the emergency room yesterday after a witnessed seizure by his mother. The patient was postictal upon arrival but denied any drug use prior to the seizure event. He does admit to use of cocaine and fentanyl as well as heroin however he typically does not take any drugs before dialysis. He was due for dialysis that morning. He has been recently admitted for an unwitnessed seizure event at which time he was seen by Dr. Salas who had recommended an EEG however this was never completed. His CT in the emergency room was nonacute. Review of Systems 2 Review of Systems: Yes all other systems are reviewed and are negative PMFSH Past Medical History Medical History (Updated 10/06/25 @ 06:51 by Tanmay Lake MD) PVD (peripheral vascular disease) ESRD (end stage renal disease) Diabetic skin ulcer Opioid use disorder, severe, dependence Anemia in chronic kidney disease (CKD) ESRD (end stage renal disease) on dialysis Cardiomyopathy Pericardial effusion Leukocytosis Transfusion history Atrial flutter, paroxysmal COPD (chronic obstructive pulmonary disease) Constipation Callus of foot Seizure Polysubstance abuse CKD (chronic kidney disease) stage 3, GFR 30-59 ml/min Foot osteomyelitis, left Amputation of toe of right foot Diabetic ulcer of right foot Sleep apnea Diabetes HTN (hypertension) Surgical History Surgical History History of surgery on arm History of surgery History of surgery 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 History of surgical procedure (~04/24/23) Social History Social History Household Members: Other Household Members Other:: Mom Housing: Apartment Are you a primary healthcare translator to a significant other at home: No Alcohol intake: former 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 Patient Tobacco Use Status: Tobacco use Unknown Tobacco use type: Cigarette Cigarette Packs Per Day: 0.5 Cigarettes Per Day: 6 Years Smoked: 33 e-Cigarette/Vaping Use: Currently Using Second Hand Smoke Exposure: Yes Substance Use Type: Crack/Cocaine and Heroin Advance Directives: No Advance Directives Information Provided: Yes Do you have a plan to hurt others: No Plan service: No Meds Allergies Allergy/AdvReac Type Severity Reaction Status Date / Time No Known Allergies (No Known Allergy Verified 10/05/25 06:26 Allergies*) Active Medications: Current Medications Acetaminophen (Acetaminophen 325 Mg Tablet) 975 mg PO Q6H PRN PRN Reason: Pain, Mild 1-3,fever,headache Calcium Carbonate (Calcium Carbonate 750 Mg Tab.Chew) 750 mg PO Q4H PRN PRN Reason: Heartburn Dextrose (Dextrose 50 % 25 Gm/50 Ml Syringe) 25 gm IVPUSH Q15M PRN; Protocol PRN Reason: per Hypoglycemia Standing Ord. Glucose (Glucose Gel 15 Gm Gel..Gram.) 15 gm PO Q15M PRN; Protocol PRN Reason: per Hypoglycemia Standing Ord. Heparin Sodium (Porcine) (Heparin Sodium,Porcine 5,000 Unit/Ml Vial) 5,000 unit SUBCUT Q8H [facility] Last Admin: 10/06/25 07:20 Dose: 5,000 unit Insulin Human Lispro (Insulin Lispro 100 Unit/Ml 3 Ml Vial) 0 unit SUBCUT QIDACHS [facility]; Protocol Last Admin: 10/06/25 07:26 Dose: Not Given Magnesium Hydroxide (Milk Of Magnesia 30 Ml Oral.Susp) 30 ml PO DAILY PRN PRN Reason: Constipation Melatonin (Melatonin 3 Mg Tablet) 6 mg PO BEDTIME PRN PRN Reason: Insomnia Sodium Chloride (0.9 % Sodium Chloride Flush 3 Ml Syringe) 3 ml IVFLUSH QSHIFT [facility] Last Admin: 10/06/25 07:26 Dose: 3 ml Physical Exam 2 Vital Signs: Vital Signs: Last Vital Signs Temp 97.1 F 10/06/25 07:13 Pulse 92 10/06/25 08:19 Resp 20 10/06/25 07:13 BP 145/72 H 10/06/25 08:19 Pulse Ox 100 10/06/25 07:13 O2 Del Method Room Air 10/06/25 07:13 O2 Flow Rate 2 10/06/25 06:00 BMI result Body Mass Index 26.4 Const: Orientation/consciousness: patient oriented x3 Neuro: General: patient oriented x3 and Unable to assess gait Cognition (Neuro): abnormal cognition (Some difficulty with recall and somnolence) Gait exam (Neuro): Unable to assess gait Results Labs 10/06/25 05:37 10/06/25 05:37 Labs: Short CBC 10/06/25 Range/Units 05:37 WBC 10.4 (4.8-10.8) X10*3/uL Hgb 13.8 L D (14.0-18.0) g/dl Hct 41.9 L D (42.0-52.0) % Plt Count 262 D (160-400) X10*3/uL BMP 10/06/25 05:37 Sodium 139 Potassium 4.7 Chloride 103 Carbon Dioxide 19 L BUN 58 H Creatinine 9.02 H* Calcium 8.9 Liver Function 10/06/25 Range/Units 05:37 Total Bilirubin 0.4 (0.0-1.0) mg/dL Direct Bilirubin 0.2 (0.0-0.5) mg/dL AST 40 H (5-37) U/L ALT 6 (0-40) U/L Alkaline Phosphatase 92 (39-117) U/L Albumin 3.7 (3.5-5.0) g/dL Assessment and Plan (1) Polysubstance abuse: Status: Acute (2) ESRD (end stage renal disease) on dialysis: Status: Chronic (3) Seizure: Status: Acute Plan Deandre is a 45-year-old male patient with a past medical history of ESRD on dialysis Friday, seizures, substance use disorder (heroin, fentanyl, and cocaine), PVD, DM, COPD, and hypertension who presented to the emergency room yesterday after a witnessed seizure by his mother. Given vague history of seizure and likely recent seizure event in September, I would recommend discharging him on Keppra. Patient can take 500 mg immediate release dosing each night (renal dosing starts at 500 mg per 24 hour period). Just dosing at nighttime may help to improve compliance but also avoid the medication being dialyzed out on dialysis days. I would also recommend an EEG if patient is willing while inpatient. He should follow up with Neurology on an outpatient basis. Patient was also educated on substance use and his added risk factor for seizure should he continue to use illicit substances especially cocaine. Procedures Date of Service Date of Service: 10/06/25
[2025-10-06 13:56] LABS: Glucose, Whole Blood 96 mg/dL (60-115)
--- NOTE | 2025-10-06 15:51 | PM.CNNEP ---
History of Present Illness Reason for Consult Consult date: 10/06/25 Reason for consult: Hemodialysis Chief Complaint Chief complaint: Seizures History of Present Illness Narrative: Patient seen during dialysis this morning 45-year-old male with PMH of ESRD on HD MWF through right subclavian PermCath with history of frequent hospital admission for drug overdose, history seizures, PVD, DM, COPD and hypertension is brought into the hospital as he had some seizures and was confused upon presentation to his regular dialysis unit. His urine drug screen is positive for cocaine and fentanyl, as he missed his dialysis session he is admitted to the hospital. Patient still remains significantly confused. Review of Systems Review of Systems Unable to obtain as patient is drowsy PMFSH Past Medical History Medical History (Updated 10/06/25 @ 06:51 by Tanmay Laek MD) PVD (peripheral vascular disease) ESRD (end stage renal disease) Diabetic skin ulcer Opioid use disorder, severe, dependence Anemia in chronic kidney disease (CKD) ESRD (end stage renal disease) on dialysis Cardiomyopathy Pericardial effusion Leukocytosis Transfusion history Atrial flutter, paroxysmal COPD (chronic obstructive pulmonary disease) Constipation Callus of foot Seizure Polysubstance abuse CKD (chronic kidney disease) stage 3, GFR 30-59 ml/min Foot osteomyelitis, left Amputation of toe of right foot Diabetic ulcer of right foot Sleep apnea Diabetes HTN (hypertension) Surgical History Surgical History History of surgery on arm History of surgery History of surgery 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 History of surgical procedure (~04/24/23) Social History Social History Household Members: Other Household Members Other:: Mom Housing: Apartment Are you a primary healthcare customer service to a significant other at home: No Alcohol intake: former 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 Patient Tobacco Use Status: Tobacco use Unknown Tobacco use type: Cigarette Cigarette Packs Per Day: 0.5 Cigarettes Per Day: 6 Years Smoked: 33 e-Cigarette/Vaping Use: Currently Using Second Hand Smoke Exposure: Yes Substance Use Type: Crack/Cocaine and Heroin Advance Directives: No Advance Directives Information Provided: Yes Do you have a plan to hurt others: No Plan service: No Meds Allergies Allergy/AdvReac Type Severity Reaction Status Date / Time No Known Allergies (No Known Allergy Verified 10/05/25 06:26 Allergies*) Active Medications: Current Medications Acetaminophen (Acetaminophen 325 Mg Tablet) 975 mg PO Q6H PRN PRN Reason: Pain, Mild 1-3,fever,headache Calcium Carbonate (Calcium Carbonate 750 Mg Tab.Chew) 750 mg PO Q4H PRN PRN Reason: Heartburn Dextrose (Dextrose 50 % 25 Gm/50 Ml Syringe) 25 gm IVPUSH Q15M PRN; Protocol PRN Reason: per Hypoglycemia Standing Ord. Glucose (Glucose Gel 15 Gm Gel..Gram.) 15 gm PO Q15M PRN; Protocol PRN Reason: per Hypoglycemia Standing Ord. Heparin Sodium (Porcine) (Heparin Sodium,Porcine 5,000 Unit/Ml Vial) 5,000 unit SUBCUT Q8H [facility] Last Admin: 10/06/25 07:20 Dose: 5,000 unit Insulin Human Lispro (Insulin Lispro 100 Unit/Ml 3 Ml Vial) 0 unit SUBCUT QIDACHS [facility]; Protocol Last Admin: 10/06/25 13:52 Dose: Not Given Magnesium Hydroxide (Milk Of Magnesia 30 Ml Oral.Susp) 30 ml PO DAILY PRN PRN Reason: Constipation Melatonin (Melatonin 3 Mg Tablet) 6 mg PO BEDTIME PRN PRN Reason: Insomnia Sodium Chloride (0.9 % Sodium Chloride Flush 3 Ml Syringe) 3 ml IVFLUSH QSHIFT [facility] Last Admin: 10/06/25 07:26 Dose: 3 ml Physical Exam Vital Signs: Last Vital Signs Temp 98.1 F 10/06/25 15:24 Pulse 98 10/06/25 15:24 Resp 20 10/06/25 15:24 BP 147/87 H 10/06/25 15:24 Pulse Ox 94 10/06/25 15:24 O2 Del Method Nasal Cannula 10/06/25 15:24 O2 Flow Rate 2 10/06/25 15:24 BMI result Body Mass Index 26.4 General: not in any acute distress, ill appearing Nutritional Appearance: well nourished and overweight Eyes: appearance normal, both eyes and all related structures; Alignment and Position: alignment normal and position normal Neck: No lymphadenopathy, no thyromegaly Resp: bilateral air entry equal, no added sounds present Cardio: Regular rate, regular rhythm; normal S1-S2 GI: soft, nontender, no guarding, no hepatosplenomegaly : bladder normal to inspection, bladder normal to palpation, no renal angle tenderness Skin: no rashes or lesions noted and elasticity normal Neuro: Not following commands, moves all extremities Results Lab Results 10/06/25 05:37 10/06/25 05:37 Lab results: Chemistry 10/05/25 10/06/25 06:49 05:37 Sodium 135 139 Potassium 4.4 4.7 Carbon Dioxide 24 19 L BUN 52 H 58 H Creatinine 7.86 H* 9.02 H* Calcium 8.6 8.9 Hematology 10/05/25 10/06/25 06:49 05:37 WBC 8.5 10.4 Hgb 11.4 L 13.8 L D Plt Count 208 262 D Assessment and Plan (1) Polysubstance abuse: Status: Acute (2) HTN (hypertension): Status: Acute (3) ESRD (end stage renal disease) on dialysis: Status: Chronic Plan 1. ESRD on HD HD schedule: [facility], last session: Friday Access: Right subclavian PermCath Volume Status: Normal HD today with goals: duration 3.5 hours/ UF: 3 L K bath: 3 K bath 2. Metabolic bone disease: Not on any medications at home dietary phosphate restriction less than 1g/day 3. Anemia of ESRD: Hb 13.8, no indication for RYLAN 4. Hypertension: Hold antihypertensives prior to HD continue home medications Thanks for your consult, we will continue to follow up this patient along with you. Procedures Date of Service Date of Service: 10/06/25
--- NOTE | 2025-10-06 15:56 | PM.EVENT ---
Event Note Date of Service: 10/06/25 Event Note: Addiction consult placed for patient with [facility] Known to t/w via previous admissions and outpatient treatment Attempted to meet with patient, however patient sleeping very soundly Woke briefly to voice, asked hoe he was doing, he stated fine, and fell back to sleep. primary teaching assistant to attempt again later today Time Spent With Patient Time: Total time managing care of this patient today ____ minutes.
[2025-10-06 16:56] LABS: Glucose, Whole Blood 333 mg/dL (60-115)
--- NOTE | 2025-10-06 18:19 | MHC.RECOVRN ---
Tw attempted to meet with pt in 46-1 after consult received by Addiction Medicine for substance use. On approach pt was sleeping in bed, difficult to arouse. Respirations even and unlabored. Pt did not appear in any acute distress and no diaphoresis or restless noted. Pt woke briefly, incoherently mumbled several words, and returned to sleep. ACS team to revisit pt tomorrow and attempt to complete recovery assessment.
[2025-10-07] VITALS: BP 169/89; PULSE 95; RESP 18; TEMP 37.5; O2SAT 99
[2025-10-07] MEDS: 0.9 % Sodium Chloride Flush 3 ML SYRINGE IVFLUSH ×2 (03:36→07:47)
[2025-10-07 03:58] VITALS: BP 167/88; PULSE 91; RESP 16; TEMP 36.9; O2SAT 97
[2025-10-07 06:56] LABS: Hematocrit 47.7 % (42.0-52.0); Hemoglobin 15.6 g/dl (14.0-18.0); Mean Corpuscular HGB Conc 32.7 g/dl (31.0-36.0); Mean Corpuscular Hemoglobin 29.8 pg (27.0-33.0); Mean Corpuscular Volume 91.2 fL (80.0-98.0); NRBC Abs Auto 0.000 X10*3/uL (0.0-0.012); NRBC Pct Auto 0.0 /100WBC (0.0-0.2); Platelet Count 202 X10*3/uL (160-400); Red Blood Count 5.23 X10*6/uL (4.60-5.80); White Blood Count 17.2 X10*3/uL (4.8-10.8)
[2025-10-07 07:36] LABS: Anion Gap 20 (12-20); Blood Urea Nitrogen 39 mg/dL (9-16); Calcium 9.5 mg/dL (8.4-10.2); Carbon Dioxide 24 mmol/L (22-29); Chloride 92 mmol/L (96-108); Creatinine Clr Calc Pharmacy 14.0; Estimated Glomerular Filt Rate 9; Magnesium 2.5 mg/dL (1.6-2.6); Potassium 4.0 mmol/L (3.3-5.1); Sodium 132 mmol/L (135-145)
[2025-10-07 07:47] LABS: Glucose, Whole Blood 203 mg/dL (60-115)
[2025-10-07 08:00] VITALS: BP 174/99; PULSE 97; RESP 18; TEMP 36.7; O2SAT 97
[2025-10-07 11:29] LABS: Glucose, Whole Blood 191 mg/dL (60-115)
--- NOTE | 2025-10-07 11:37 | W.PM.DNNEP ---
Subjective Subjective Date of Service: 10/07/25 This patient was seen during dialysis. No new issues, receiving additional session of dialysis today to keep him back in his schedule MWF Physical Exam Vital Signs: Vital Signs: Last Vital Signs Temp 98.0 F 10/07/25 08:00 Pulse 97 10/07/25 08:00 Resp 18 10/07/25 08:00 BP 174/99 H 10/07/25 08:00 Pulse Ox 97 10/07/25 08:00 O2 Del Method Room Air 10/07/25 03:58 O2 Flow Rate 2 10/07/25 00:00 BMI result Body Mass Index 26.4 General: Young male in no acute distress, he has chronic ill appearing and tired appearing Nutritional Appearance: well nourished and normal weight Eyes: appearance normal, both eyes and all related structures; Alignment and Position: alignment normal and position normal Neck: No lymphadenopathy, no thyromegaly Resp: bilateral air entry equal, occasional added sounds present Cardio: Regular rate, regular rhythm; Heart sounds: S1 normal heart sound present and S2 normal heart sound present GI: soft, nontender, no guarding, no hepatosplenomegaly : bladder normal to inspection, bladder normal to palpation, no renal angle tenderness Skin: no rashes or lesions noted and elasticity normal Neuro: oriented to person, oriented to place, oriented to time and moves all extremities Assessment & Plan Assessment and plan (1) ESRD (end stage renal disease) on dialysis: Status: Chronic (2) Metabolic bone disease: Status: Acute (3) Anemia of renal disease: Status: Acute Plan 1. ESRD on HD HD schedule: MWF, last session: Access: Right subclavian PermCath Volume Status: Normal Received HD session yesterday, dialyzing him again today to keep him on schedule MWF HD today with goals: duration 3.5 hours/ UF: 3 L K bath: 3 K bath 2. Metabolic bone disease: Not on any medications at home dietary phosphate restriction less than 1g/day 3. Anemia of ESRD: Hb 13.8, no indication for RYLAN 4. Hypertension: Hold antihypertensives prior to HD continue home medications Time Spent With Patient Time: Total time managing care of this patient today ____ minutes. Procedures Date of Service Date of Service: 10/07/25
[2025-10-07 11:46] VITALS: BP 154/74; PULSE 95; RESP 18; TEMP 36.7; O2SAT 95
--- NOTE | 2025-10-07 13:58 | HO.WOUND ---
Addendum entered by Akosua Colvin RN 10/07/25 15:23: Note below is based off of chart review - unable to assess patients wounds due to being off unit at the time of my consutlation. Original Note: Wound Consult: Initial 45 yr old male [place] [facility] [place]- See progress notes and H&P for detailed history. Wound consult placed for coccyx, right BKA. Patient with history of extensive wounding, largely healed. Patient reports not using any dressings at home for wounds, reports he is unable to get to the wound center. Explained importance of wound care, gave wound care instructions, patient verbalized understanding. Coccyx Etiology: resolving Stage 4 pressure injury POA - previously documented stage 4 now shallow with moist pink/yellow base Wound Bed: moist pink/yellow superficial full thickness, thickened moist white edges - supererior noted with healed contracted and callused scar tissue Drainage / Odor: scant serous, no odor Edges: ? moist Corazon wound: ? No Induration, Fluctuance or Warmth noted Pain: none Goals of Treatment: ? durafiber ag for drainage absorption Right BKA Etiology: diabetic Wound Bed: moist red thin layer of yellow biofilm Drainage / Odor: small serosanguineous mild odor Edges: ? thicknened/rolled and callused Corazon wound: ? No Induration, Fluctuance or Warmth noted Pain: yes Goals of Treatment: ? durafiber for drainage absorption and antimicrobial effects left foot- dry stable eschar no fluctuance no induration no drainage- betadine Left heel- healed skin injury with small dry callus- betadine Recommendations: 1. Turn and Reposition every 2 hours and as needed for patient comfort. Use pillows or wedges to support off loading positions. 2. Off Load all bony prominences with use of pillows and heel boots if needed. Apply Preventative foams where needed. 3. Monitor for incontinence and moisture control, use barrier creams when needed for prevention and treatment. 4. Provide adequate and supplemental nutrition. 5. Order or Continue low air loss mattress. 6. When applicable maintain blood glucose levels per Providers order. Re-consult wound care Nurse for wound deterioration or wound changes. Right BKA: cleanse with saline, apply durafiber ag, cover with foam, change every other day and PRN. Left TMA: apply betadine daily and PRN Coccyx: offload pressure with Q2H turns and pillows, cleanse with saline, pat dry, apply durafiber ag, cover with foam, change every other day and PRN
--- NOTE | 2025-10-07 14:01 | MHC.CM.PN ---
Addendum entered by Shyla Lynne 10/07/25 15:19: DC order is in; Patient has been medically cleared for dc to home today, self care. Original Note: Per MD in Rounds & RN, it is anticipated that Patient will dc to home today and resume his services. Per RN's request, has booked a [facility] for 7 PM today. RN is aware.
--- NOTE | 2025-10-07 14:56 | PM.DS ---
DS: Providers Provider Date of Service: 10/07/25 Date of admission: 10/06/25 06:38 Date of discharge: 10/07/25 Primary care physician: [facility] Consults: 10/06/25 06:38 Consult to Nephrology Routine Consulting Provider[place] [facility] Reason for consultation: ESRD on HD MWF, missed yesterday 10/06/25 06:39 Consult to Neurology Routine Consulting Provider: [facility] Reason for consultation: seizure 10/06/25 06:45 Addiction Medicine Provider Routine Consulting Provider: [facility] Reason for consultation: Polysubstance use Has provider been notified: No 10/06/25 16:45 Consult to Wound Care Routine Consulting [place] [facility] Reason for consultation: R BKA wound Has provider been notified: Yes DS: Diagnosis Discharge Diagnosis (1) ESRD (end stage renal disease) on dialysis: Status: Chronic (2) Metabolic bone disease: Status: Acute (3) Anemia of renal disease: Status: Acute DS: Summary Hospital Course Hospital Course: Chief Complaint: Seizure Patient is a 45-year-old male with a past medical history significant for ESRD on HD MWF, history seizures (no medications), substance use disorder (heroin, fentanyl, cocaine), PVD, DM, COPD and hypertension, who presented to the ED yesterday morning due to a witnessed seizure prior to dialysis. The patient was postictal on arrival and denied any drug use prior to this seizure. He does have a history of seizures but does not take any medication for it. He was loaded with 3 g of IV Keppra in the ED. The patient has a history of leaving AMA and around 12:00 he became agitated and was medicated with Haldol and Ativan. Patient's mother has had lengthy discussions with the ED provider on wishes for sobriety. The patient has been somnolent and is overdue for dialysis at this time. Patient to be admitted due to need for dialsysis and continued somnolence. Hospital course: He presented seizure with no obvious triger. He was loaded with IV Keppra. He was evaluated by Neurology with recommendation for Keppra 500 mg at Bedtime. An outpatient EEG will be arranged. To follow up with PCP and resume usual dialysis schedule. Time Attestation Discharge Coordination Time (in mins): 40 Quality: Safe Use of Opioids Does Pt have an Active Cancer Diagnosis on the Problem List?: No Quality: Stroke Does the patient have a stroke diagnosis?: No Physical Exam Exam: Exam: General: AO X 3, no acute distress Resp: CTA bilateral CVS: S1,S2,RRR GI: +BS, NT, no distention Skin: No rash Neuro: motor grossly intact Psych: appropriate affect Vital Signs: Vital Signs: Last Vital Signs Temp 98.1 F 10/07/25 11:46 Pulse 95 10/07/25 11:46 Resp 18 10/07/25 11:46 BP 154/74 H 10/07/25 11:46 Pulse Ox 95 10/07/25 11:46 O2 Del Method Room Air 10/07/25 11:46 O2 Flow Rate 2 10/07/25 00:00 BMI result Body Mass Index 26.4 DS: Data Data Completed and Pending Completed studies during hospitalization [Text1]: Procedures Assistance with Respiratory Ventilation, Less than 24 Consecutive Hours, Continuous Positive Airway Pressure (11/05/24) Detachment at Right 2nd Toe, Complete, Open Approach (04/18/23) Drainage of Left Pleural Cavity with Drainage Device, Percutaneous Approach (10/04/24) Drainage of Left Pleural Cavity, Percutaneous Approach (09/21/24) Excision of Inguinal Skin, External Approach (12/17/24) Excision of Left Foot Skin, External Approach (11/05/24) Excision of Male Perineum, Open Approach (11/05/24) Excision of Right Foot Subcutaneous Tissue and Fascia, Open Approach (04/18/23) Excision of Right Upper Leg Skin, External Approach (12/17/24) Excision of Right Upper Leg Subcutaneous Tissue and Fascia, Open Approach (11/05/24) Fluoroscopy of Superior Vena Cava using Low Osmolar Contrast, Guidance (04/18/23) Insertion of Endotracheal Airway into Trachea, Via Natural or Artificial Opening (09/04/25) Insertion of Infusion Device into Right Atrium, Percutaneous Approach (10/04/24) Insertion of Infusion Device into Superior Vena Cava, Percutaneous Approach (10/04/24) Insertion of Tunneled Vascular Access Device into Chest Subcutaneous Tissue and Fascia, Percutaneous Approach (10/04/24) Introduction of Vasopressor into Peripheral Vein, Percutaneous Approach (11/05/24) Performance of Urinary Filtration, Intermittent, Less than 6 Hours Per Day (09/04/25) Respiratory Ventilation, 24-96 Consecutive Hours (09/04/25) Transfusion of Nonautologous Red Blood Cells into Peripheral Vein, Percutaneous Approach (11/05/24) Ultrasonography of Superior Vena Cava, Guidance (10/04/24) Labs on day of discharge: Laboratory Results - last 24 hr 10/06/25 10/06/25 10/07/25 16:53 22:06 06:13 WBC 17.2 H RBC 5.23 Hgb 15.6 Hct 47.7 MCV 91.2 MCH 29.8 MCHC 32.7 RDW 14.4 Plt Count 202 MPV 12.1 Absolute Nucleated RBC 0.000 Nucleated RBC % (auto) 0.0 Sodium 132 L Potassium 4.0 Chloride 92 L Carbon Dioxide 24 Anion Gap 20 BUN 39 H Creatinine 6.51 H* Estim Creat Clear Calc 14.0 Estimated GFR 9 POC Glucose 333 H 144 H Random Glucose 131 H Calcium 9.5 D Magnesium 2.5 10/07/25 10/07/25 07:38 11:11 WBC RBC Hgb Hct MCV MCH MCHC RDW Plt Count MPV Absolute Nucleated RBC Nucleated RBC % (auto) Sodium Potassium Chloride Carbon Dioxide Anion Gap BUN Creatinine Estim Creat Clear Calc Estimated GFR POC Glucose 203 H 191 H Random Glucose Calcium Magnesium Discharge Plan Discharge Anticipated Discharge Date/Time: 10/07/25 14:58 Patient Disposition: Home, Self-Care Discharge Diagnosis: Breakthrough Seizure [facility]errals: [facility] [Primary Care Provider, Medical] - 1 Week Discharge Medications: New levetiracetam [Keppra] 500 mg tablet 500 mg PO BEDTIME Qty: 90 0RF Continued (DME) pen needle, diabetic 32 gauge x 1/4 needle Qty: 100 0RF Rx Instructions: Use four times a day or as directed. (DME) Dakins solution 1/4 strength 500ml See Rx Instructions .Route .MEDSUPPLY Qty: 1 0RF Rx Instructions: As directed (DME) FreeStyle Lite Strips Strip Qty: 100 0RF Rx Instructions: Test four times a day or as directed. (DME) blood-glucose meter Kit Qty: 1 0RF Rx Instructions: As Directed (DME) lancets [FreeStyle Lancets] 28 gauge misc Qty: 100 0RF Rx Instructions: Test four times a day or as directed. buprenorphine-naloxone [Suboxone] 8-2 mg film 1 film sublingual TID 30 Days Qty: 90 2RF Discharge Orders: Discharge Order (Routine); Ordered 10/07/25 Ordered By: Harley Cooper Diet: Advance to usual diet Activity on Discharge: As tolerated Stand Alone Forms: Patient Portal Discharge page Print Language: Malagasy Other Ambulatory Orders: EEG Routine (Routine) Timeframe: 1 Week Facility: [facility] - Location: Radiology Ordered By: Harley Cooper Care Plan Goals: recovery from seizure Health Concerns: seizure Plan of Treatment: take Kewilliamra as recommended Assessment: see above
[2025-10-07 15:43] LABS: Glucose, Whole Blood 143 mg/dL (60-115)
[2025-10-07 16:00] VITALS: BP 138/87; PULSE 97; RESP 18; TEMP 36.4; O2SAT 96
== END 2025-10-07 16:45 | disposition home or self-care (01) ==
LOC: HO.ED 10-06 02:00 → HO.EDOVER 10-06 06:41 → HO.IMC 10-06 07:25
PROVIDERS: Emergency Medicine; Admitting Provider Physician Assistant; Emergency Provider Emergency Medicine; PCP Family Medicine; Visit Provider Internal Medicine
DX: I12.0 Hypertensive chronic kidney disease with stage 5 chronic kidney disease or end stage renal disease (principal); E11.22 Type 2 diabetes mellitus with diabetic chronic kidney disease; N18.6 End stage renal disease; D63.1 Anemia in chronic kidney disease; F19.10 Other psychoactive substance abuse, uncomplicated; M89.8X9 Other specified disorders of bone, unspecified site; R56.9 Unspecified convulsions; R61 Generalized hyperhidrosis; R45.1 Restlessness and agitation; I44.0 Atrioventricular block, first degree; R94.31 Abnormal electrocardiogram [ECG] [EKG]; Z91.81 History of falling; Z99.2 Dependence on renal dialysis; J44.9 Chronic obstructive pulmonary disease, unspecified
CPT/HCPCS: 36415; 70450; 80048; 80053; 80076; 80307; 82140; 82803; 82947; 83735; 85025; 85027; 90999; 93005; 96365; 96372; 96375; 99222; 99285; J1630; J1644; J1953; J2060; J2312; J3360; S9485

== ENCOUNTER → 2025-10-05 06:29 | Outpatient (BNV) | payer MEDICAID, SELFPAY | PROVIDERS: Emergency Provider Emergency Medicine; Visit Provider Internal Medicine | DX: I44.0 Atrioventricular block, first degree (principal) | CPT/HCPCS: 93010 ==

== ENCOUNTER → 2025-10-05 06:29 | Outpatient (BNV) | payer MEDICAID, SELFPAY | PROVIDERS: Emergency Provider Emergency Medicine; Visit Provider Radiology Diagnostic Radiology | DX: R56.9 Unspecified convulsions (principal); Z04.3 Encounter for examination and observation following other accident | CPT/HCPCS: 70450 ==

== ENCOUNTER → 2025-10-06 01:19 | Outpatient (BNV) | payer MEDICAID, SELFPAY | PROVIDERS: Admitting Provider Physician Assistant; Emergency Provider Emergency Medicine; Visit Provider Internal Medicine | DX: I44.0 Atrioventricular block, first degree (principal) | CPT/HCPCS: 93010 ==

== ENCOUNTER → 2025-10-06 06:38 | Outpatient (BNV) | payer OTHER, SELFPAY | PROVIDERS: Admitting Provider Physician Assistant; Emergency Provider Emergency Medicine; Visit Provider Nurse Practitioner Psychiatric/Mental Health | DX: F14.90 Cocaine use, unspecified, uncomplicated (principal); F11.90 Opioid use, unspecified, uncomplicated | CPT/HCPCS: 99499 ==

== ENCOUNTER → 2025-10-06 06:38 | Outpatient (BNV) | payer MEDICAID, SELFPAY | PROVIDERS: Admitting Provider Physician Assistant; Emergency Provider Emergency Medicine; Visit Provider Physician Assistant | DX: R56.9 Unspecified convulsions (principal); F19.10 Other psychoactive substance abuse, uncomplicated; N18.6 End stage renal disease; Z99.2 Dependence on renal dialysis | CPT/HCPCS: 99222 ==

== ENCOUNTER → 2025-10-06 06:38 | Outpatient (BNV) | payer MEDICAID, SELFPAY | PROVIDERS: Admitting Provider Physician Assistant; Emergency Provider Emergency Medicine; Visit Provider Internal Medicine Critical Care Medicine | DX: F19.10 Other psychoactive substance abuse, uncomplicated (principal); I12.0 Hypertensive chronic kidney disease with stage 5 chronic kidney disease or end stage renal disease; N18.6 End stage renal disease; Z99.2 Dependence on renal dialysis | CPT/HCPCS: 99223 ==

== ENCOUNTER → 2025-10-06 06:38 | Outpatient (BNV) | payer MEDICAID, SELFPAY | PROVIDERS: Admitting Provider Physician Assistant; Emergency Provider Emergency Medicine; Visit Provider Nurse Practitioner | DX: F19.10 Other psychoactive substance abuse, uncomplicated (principal); N18.6 End stage renal disease; Z99.2 Dependence on renal dialysis; R56.9 Unspecified convulsions | CPT/HCPCS: 99222 ==

== ENCOUNTER 2025-10-19 13:45 | Outpatient (AMB) | payer OTHER, SELFPAY ==
--- NOTE | 2025-10-19 13:50 | A.OFFVISCC_ITS ---
Vital Signs 10/19/25 13:59 Pulse 105 H Pulse Source Pulse Oximeter Pulse Oximetry (%) 98 Oxygen Delivery Method Room Air Intake Visit Reasons: mat visit in person Allergies No Known Allergies (No Known Allergies*) Allergy (Verified 10/19/25 13:59) HPI HPI mat visit in person: Details: He feels he is doing well He continues Suboxone. Review of Systems Const All systems reviewed & are unremarkable except as noted in HPI and below Physical Exam Vital Signs: Last Vital Signs Pulse 105 H 10/19/25 13:59 Pulse Ox 98 10/19/25 13:59 Oxygen Delivery Method Room Air 10/19/25 13:59 [facility] Medical History Metabolic bone disease Hypertension Chronic renal failure Chronic renal failure PVD (peripheral vascular disease) ESRD (end stage renal disease) Diabetic skin ulcer Opioid use disorder, severe, dependence Anemia in chronic kidney disease (CKD) ESRD (end stage renal disease) on dialysis Cardiomyopathy Pericardial effusion Leukocytosis Transfusion history Atrial flutter, paroxysmal COPD (chronic obstructive pulmonary disease) Constipation Callus of foot Seizure Polysubstance abuse CKD (chronic kidney disease) stage 3, GFR 30-59 ml/min Foot osteomyelitis, left Amputation of toe of right foot Diabetic ulcer of right foot Sleep apnea Diabetes HTN (hypertension) Surgical History History of surgery on arm History of surgery History of surgery 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 History of surgical procedure (~04/24/23) Social History Household Members: Other Household Members Other:: Mom Housing: Apartment Are you a primary pediatric critical care nurse to a significant other at home: No Alcohol intake: former 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 Patient Tobacco Use Status: Tobacco use Unknown Tobacco use type: Cigarette Cigarette Packs Per Day: 0.5 Cigarettes Per Day: 6 Years Smoked: 33 e-Cigarette/Vaping Use: Currently Using Second Hand Smoke Exposure: Yes Substance Use Type: Crack/Cocaine and Heroin service: No Assessment & Plan Assessment & Plan (1) Opioid use disorder, severe, dependence: Comment: He is stable and no SI or HI Code(s): F11.20 - Opioid dependence, uncomplicated Category: Medical Plan: Continue Suboxone written for Plan see as scheduled counseling if needed Medications: New buprenorphine-naloxone 8-2 mg (Suboxone) 1 film sublingual TID 90 ea 2RF
[2025-10-19 13:59] VITALS: PULSE 105; O2SAT 98
--- OUTSIDE RECORDS SUMMARY | 2025-10-19 18:14 | XMS_ITS | Encounter Summary ---
Author Organization [facility] Address [address] [place] [id number] Phone Care Team Providers Care Casing Tester Name Role Phone [place], Cristina Petersen MD Primary Care Provi jason Encounter Details Date Type Department Care Team (Late st Contact Info) Description 02/16/2022 Procedure Pass [facility], Ct Scan - [address] [address] Social History Tobacco Use Types Packs/Day Years [...] 4:52 PM EDT Alan Gutiérrez RN * [place] Suicide Severity Rating Scale (Screener/Recent Self-Report) Question [...] on filedocumented in this encounter Care Teams Casing Tester Relationship Specialty Start Date End Date [place], Cristina Petersen MD [address] [place] [address] PCP - General 08/19/17 documented as of this encounter Additional Source Comments The information contained in this document represents components of the legal health record. It is not the complete legal health record.[facility]
--- OUTSIDE RECORDS SUMMARY | 2025-10-19 18:14 | XMS_ITS | Clinical Summary ---
Author Organization [facility] Address [address] [place] [phone] Phone Care Team Providers Care Weight Reduction Specialist Name Role Phone Cristina Stover MD [...] EDT) SODIUM 127(L) 133 - 146 mmol/L [facility] CHLORIDE 92(L) 96 - 108 mmol/L [facility] POTASSIUM 5.6(H) 3.3 - 5.1 mmol/L [facility] Comment:Specimen slightly he molyzed, result may be falsely elevated. CO2 27 21 - 35 mmol/L [facility] BUN 40(H) 6 - 19 mg/dL [facility] CREATININE 3.30(H) 0.5 - 1.5 mg/dL [facility] GLUCOSE 325(H) 70 - 99 mg/dL [facility] CALCIUM 9.7 8.4 - 10.3 mg/dL [facility] EGFR 23(L) >59 mL/min/1.7 3m2 [facility] Comment:Estimated glomerular filtration rate calculated using the CKD-EPI refit equation. ANION GAP 14 10 - 20 mmol/L [facility] Blood 02/16/2022 5:52 PM EDT 02/16/2022 6:00 PM EDT us Jeny Feldman MD LAB BLOOD BKR ORDERABLES Fin al Result [address] [id number] from Last 3 Months or Most Recently Relevant to Health Maintenance Insurance C3 ACO C3 ACO C3 ACO C3 ACO C3 ACO C3 ACO C3 ACO C3 ACO Care Teams Weight Reduction Specialist Relationship Specialty Start Date End Date Ck, Cristina Petersen MD [address] [place] [address] PCP - General 08/19/17 Additional Source Comments The information contained in this document represents components of the legal health record. It is not the complete legal health record.[facility]
== END 2025-10-19 14:29 | disposition home or self-care (01) ==
PROVIDERS: PCP Family Medicine; Visit Provider Internal Medicine
DX: F11.20 Opioid dependence, uncomplicated (principal)
CPT/HCPCS: 99213

== ENCOUNTER → 2025-10-19 13:45 | Outpatient (BNVA) | payer OTHER, SELFPAY | PROVIDERS: PCP Family Medicine; Visit Provider Internal Medicine | DX: F11.20 Opioid dependence, uncomplicated (principal); Z79.899 Other long term (current) drug therapy | CPT/HCPCS: 99212 ==